=== PATIENT | female | born 1960 | race Caucasian/White ===

== ENCOUNTER → 2017-09-28 13:49 | Outpatient (CLI) | payer MEDICARE, OTHER, SELFPAY ==
[2017-09-28 16:14] LABS: Hemoglobin A1c 6.3 % (4.2-6.3); T3 Total - Triiodothyronine 1.02 ng/mL (0.6-1.81); T4 Free Direct 1.29 ng/dL (0.76-1.46); Thyroid Stim Hormone (TSH) 1.27 uIU/mL (0.358-3.74)
== END ==
PROVIDERS: Visit Provider Family Medicine
DX: E11.9 Type 2 diabetes mellitus without complications (principal); E03.9 Hypothyroidism, unspecified
CPT/HCPCS: 36415; 83036; 84439; 84443; 84480

== ENCOUNTER → 2017-10-07 09:51 | Outpatient (CLI) | payer MEDICARE, OTHER, SELFPAY ==
--- NOTE | 2017-10-07 09:54 | HPBI_ITS ---
MAMMOGRAPHY - BILATERAL SCREENING REASON FOR EXAM: Female, 57 years old. Routine annual screening examination. PERTINENT HISTORY: Non-contributory. TECHNIQUE: Digital bilateral breast aida (3D mammographic acquisition) in the CC and MLO projections. 2-D mediolateral oblique (MLO) and craniocaudad (CC) views of both breasts were obtained. CAD: Full Field Digital Mammography with Computer Added Detection was performed. COMPARISON: None. Baseline examination. FINDINGS: Breast Composition: The breasts are heterogeneously dense, which may obscure small masses. There are no dominant masses or suspicious calcifications. No other significant abnormalities are identified. HPBI/SCREENING MAMM (CAD), BILAT IMPRESSION: Negative screening mammogram. Yearly followup mammogram recommended. (A) ASSESSMENT CATEGORY: BIRADS Category 1: Negative. A letter regarding these results will be sent to the patient by the facility within 30 days. Approximately 10% of breast cancers are not detected by mammography. A normal mammogram should not delay biopsy of a clinically suspicious abnormality. [id number] Electronically Signed: Stan Corral MD at 10:59 EST Tel [phone], Service support ,
== END ==
PROVIDERS: Family Provider Family Medicine; PCP Family Medicine; Visit Provider Nurse Practitioner Women's Health
DX: Z12.31 Encounter for screening mammogram for malignant neoplasm of breast (principal)
CPT/HCPCS: 77063; 77067

== ENCOUNTER → 2017-10-10 14:59 | Outpatient (CLI) | payer MEDICARE, OTHER, SELFPAY ==
[2017-10-10 17:32] LABS: Absolute Lymphocyte Count 1.93 X10^3/ul (0.83-4.51); Absolute Neutrophil Count 3.7 X10^3/uL (2.0-7.7); Basophil# 0.03 X10^3/uL; Basophil% 0.5 % (0-1); Eosinophil# 0.19 X10^3/uL; Hematocrit 39.4 % (37-47); Hemoglobin 12.8 g/dl (12.0-15.0); Lymphocyte # 1.93 X10^3/ul (4.0); Lymphocyte % 30.9 % (19-41); Mean Corp Hgb Conc 32.5 g/gl (32-36); Mean Corpuscular Hgb 28.1 pg (27.0-32.0); Mean Corpuscular Volume 86.6 fL (81-99); Mean Platelet Vol. 9.2 fl (6.2-12.0); Monocyte# 0.37 X10^3/uL; Monocyte% 5.9 % (0-10); Neutrophil # 3.71 X10^3/uL (2.7-7.7); Neutrophil % 59.4 % (47-70); Platelet Count 203 K/mm3 (150-450); RBC Distribution Width CV 12.9 % (11.6-14.6); Red Blood Count 4.55 M/mm3 (4.2-5.4); White Blood Count 6.3 K/mm3 (4.4-11.0)
[2017-10-10 17:39] LABS: POSITIVE COUNT NO; POSITIVE DIFFERENTIAL NO; POSITIVE MORPHOLOGY NO
[2017-10-10 18:19] LABS: AST(SGOT) 26 U/L (15-37); Alanine Aminotransfer ALT/SGPT 47 U/L (13-56); Albumin, Serum 3.6 g/dL (3.2-5.0); Alkaline Phosphatase 83 U/L (45-117); Anion Gap 8 (5-15); BUN 14 mg/dL (7-18); BUN/Creat Ratio 16.5 RATIO (10-20); Calcium,Total 8.8 mg/dL (8.5-10.1); Chloride 102 mmol/L (98-107); Creatinine, Serum 0.85 mg/dL (0.55-1.02); EST Glomerular Filtration Rate 73 mL/min (>60); Est Glom Filt Rate - Afr Amer 88 mL/min (>60); Globulin 3.7 g/dL (2.2-4.2); Glucose 103 mg/dL (74-106); Potassium 4.4 mmol/L (3.5-5.1); Protein, Total 7.3 g/dL (6.4-8.2); Sodium Level 138 mmol/L (136-145)
[2017-10-10 19:58] LABS: Vitamin D,25 Hydroxy 28.5 ng/mL (19.95-100.01)
== END ==
PROVIDERS: Family Provider Family Medicine; PCP Family Medicine; Visit Provider Family Medicine
DX: E11.9 Type 2 diabetes mellitus without complications (principal); E03.9 Hypothyroidism, unspecified; E55.9 Vitamin D deficiency, unspecified; E16.2 Hypoglycemia, unspecified; R53.83 Other fatigue
CPT/HCPCS: 36415; 80053; 82306; 85025

== ENCOUNTER 2017-10-28 06:06 | Day surgery (SDC) | payer MEDICARE, OTHER, SELFPAY ==
[2017-10-28 06:43] VITALS: BP 122/60; PULSE 73; RESP 16; TEMP 36.2; O2SAT 93; BMI 39.9
[2017-10-28 07:06] LABS: Bedside Glucose 120 mg/dL (70-110)
[2017-10-28] MEDS: Cefazolin 2 GM in 0.9% Normal Saline 100 ML IV (07:18)
[2017-10-28] MEDS: Bupivacaine 0.25% 30 ML Vial (07:27)
--- NOTE | 2017-10-28 07:48 | PCM.DC.POD ---
Discharge Diet: Light diet - advance as tolerated Weight Bearing Status: No weight bearing - No weight left foot Keep extremity elevated above heart level: Left Leg - Keep left foot elevated for at least 50 minutes of every hour Call your doctor if your incision/area has: Continuous Slow Oozing, Sudden Increased Bleeding, Foul Smelling Discharge Call your doctor if you observe: Fever of 101 or Higher, Coldness, Increased Pain, Shortness of breath, Chest pain, Increased palpitations (irregular heartbeat), Calf discomfort, Uncontrolled pain Cleanse incision/area with: Do not get Incision Wet, Keep Dressing Clean & Dry Allergies/Adverse Reactions: Allergies niacin Allergy (Verified 08/01/15 12:44) Itching gabapentin [From Neurontin] Adverse Reaction (Verified 08/01/15 12:44) Other HOT, REDNESS FELT WEIRD Medications to take at Discharge Hydroxyzine Pamoate [Vistaril] 100 mg PO QHS 08/30/13 Lorazepam [Ativan] 1 mg PO BID 08/30/13 Medtronic Pain Pump 08/30/13 Omeprazole [Prilosec] 40 mg PO DAILY 08/30/13 Sertraline HCl [Zoloft] 50 mg PO DAILY 08/30/13 Tizanidine HCl [Zanaflex] 4 mg PO DAILY 08/30/13 Trazodone HCl [Desyrel] 100 mg PO QHS 08/30/13 Lactobacillus Combination No.4 [Probiotic] 1 each PO BID 12/06/14 Lisinopril/Hydrochlorothiazide [Zestoretic 20/25 Tablet] 1 tablet PO DAILY 12/06/14 Oxycodone HCl/Acetaminophen [Percocet 5-325] 1 - 2 tablet PO Q12H PRN 12/06/14 Aspirin [Aspirin, Baby] 81 mg PO DAILY 10/21/17 BuPROPion (XL) [Wellbutrin Xl] 150 mg PO DAILY 10/21/17 Cholecalciferol (Vitamin D3) [Vitamin D3] 2,000 units PO BID 10/21/17 Hydrochlorothiazide [Hctz] 25 mg PO DAILY 10/21/17 Levothyroxine [Synthroid] 50 mcg PO DAILY 10/21/17 Meloxicam 7.5 mg PO DAILY 10/21/17 Metformin HCl [Glucophage] 500 mg PO BIDCM 10/21/17 Simvastatin 20 mg PO DAILY PRN 10/21/17 Oxycodone HCl/Acetaminophen [Percocet 5/325] 1 - 2 tab PO Q4H PRN PRN 3 Days #30 tab 10/28/17 The following prescriptions were given: Oxycodone HCl/Acetaminophen [Percocet 5/325] 1 - 2 tab PO Q4H PRN PRN 3 Days #30 tab PRN Reason: Pain Primary Care Physician: Rica Padgett DO [Primary Care Provider] - Please Follow Up With: Rafi Berry DPM When: within 1 week or sooner if needed
--- NOTE | 2017-10-28 07:50 | PCM.OPRPT ---
Report of Operation Date of Procedure: 10/28/17 Pre-Operative Diagnosis: Plantar fasciitis, left foot Post-Operative Diagnosis: Same Surgery/Procedure Performed:: Plantar Fasciotomy, left foot Description of Surgical Findings:: See operative report engineering designer: Reg Carlos Type of Anesthesia:: Local MAC Specimen's removed: None Estimated Blood Loss (mL): 1mL Description of Procedure: Indications: This is a 57 year old female with chronic left plantar heel pain at the level of the origin of the plantar fascia. This has been treated with extensive conservative/nonsurgical management, but she continues to have pain and symptoms. Xrays were negative, and she is not able to get an MRI. She continues to have pain on palpation to the plantar fascia and all the classic symptoms of plantar fasciitis, which was really bothering her and affecting her daily activities. She has elected to undergo plantar fasciotomy of the left foot. This was discussed with her in great detail, reviewed the possible benefits vs risks and potential complications. Typical post op recovery was reviewed with her. The goals and the expectations were reviewed with her in detail. The consent forms were reviewed with her in detail, and she freely signed them. No guarantees were given or implied. All of her questions were answered. Operative Procedure: The patient was brought back into the operating room and was placed on the operating room table in the supine position. She was carefully secured to the operating room table with a safety belt around the waist. A time out was performed and the patient was properly identified and the surgical plan was confirmed. The patient received 2g of IV Cefazolin for antibiotic prophylaxis. A well padded pneumatic tourniquet was applied around the patient's left ankle. The patient received MAC anesthesia per the anesthesiologist. The skin was cleansed with 70% isopropyl alcohol and 20mL of 0.25% Bupivacaine plain was given as a regional nerve block around the left hindfoot. The left foot was scrubbed, prepped, draped in the usual aseptic fashion. The left foot was elevated for 3 minutes and the left ankle pneumatic tourniquet was inflated to 250mmHg. A skin incision was made to the medial hindfoot at the level of the plantar fascia, careful blunt dissection was completed down through the subcutaneous tissue layer. The patient did have some discomfort to the surgical site therefore 10mL of 1% Lidocaine plain was given as a local nerve block around the surgical site. A plane was created superiorly and inferiorly around the plantar fascia. It was noted the plantar fascia was scarred and thickened at this level. The medial 50% of the plantar fascia was released via a plantar fasciotomy. Remaining tissues appeared healthy and viable. After completing the plantar fasciotomy as noted above, the site was flushed out with copious amounts of normal saline solution. The skin was reapproximated using 4-0 Monocryl. The pneumatic tourniquet was deflated (total tourniquet time was 15 minutes), and there was immediate return of warmth and perfusion to the foot and to all toes on the foot with normal temperature gradient and CFT < 2 seconds to all toes. Hemostasis was achieved. A dressing was applied which consisted of Betadine soaked adaptic, 4x4 gauze, Kerlix and dedrick bandage, being sure to apply it not to tight. The patient tolerated the above operative procedure well at the anesthesia well with no complication. The patient was transported to the recovery room with vital signs stable and in good condition. Post operative orders were placed. Post operative instructions were reviewed with her as well as with her who was here with her today. No weightbearing left foot, keep left foot elevated for at least 50 minutes of every hour, keep dressing clean, dry and intact. Prescription for Percocet 5mg/325mg was prescribed: 1-2 tab PO q 4 hours PRN pain for pain control. She is to follow up with me within 1 week or sooner if needed. Grafts/Implants Used: None - Complications None
[2017-10-28 07:55] VITALS: BP 107/54; BP 122/60; PULSE 82; RESP 16; TEMP 36.6; O2SAT 92
[2017-10-28 08:00] VITALS: BP 102/62; BP 122/60; PULSE 80; RESP 16; O2SAT 92
[2017-10-28 08:05] VITALS: BP 104/59; BP 122/60; PULSE 78; RESP 16; O2SAT 92
[2017-10-28 08:10] VITALS: BP 122/60; BP 99/61; PULSE 75; RESP 16; TEMP 36.1; O2SAT 92
[2017-10-28 09:11] VITALS: BP 122/60; BP 132/78; PULSE 70; RESP 18; TEMP 36.6; O2SAT 99
== END 2017-10-28 09:14 | disposition home or self-care (01) ==
LOC: SDC 06:06 → AC 06:08
PROVIDERS: Family Provider Family Medicine; PCP Family Medicine; Visit Provider Podiatrist
PROC: (CPT 28008; principal; 2017-10-28 07:15)
DX: M72.2 Plantar fascial fibromatosis (principal); F41.9 Anxiety disorder, unspecified; Z79.899 Other long term (current) drug therapy; Z86.711 Personal history of pulmonary embolism; K21.9 Gastro-esophageal reflux disease without esophagitis; Z79.82 Long term (current) use of aspirin; Z79.84 Long term (current) use of oral hypoglycemic drugs; I10 Essential (primary) hypertension; Z87.891 Personal history of nicotine dependence; E78.5 Hyperlipidemia, unspecified; E55.9 Vitamin D deficiency, unspecified; E11.9 Type 2 diabetes mellitus without complications; E03.9 Hypothyroidism, unspecified
CPT/HCPCS: 28008; 82962; J3010; J7120

== ENCOUNTER → 2017-11-09 16:33 | Outpatient (CLI) | payer MEDICARE, OTHER, SELFPAY ==
[2017-11-09 17:43] LABS: Amphetamine Urine VISTA NEGATIVE (<1000 ng/mL); Barbiturate Urine VISTA NEGATIVE (< 200 ng/mL); Benzodiazepine Urine VISTA NEGATIVE (< 200 ng/mL); Cocaine Urine VISTA NEGATIVE (< 300 ng/mL); Ecstacy Urine VISTA POSITIVE (< 500 ng/mL); Methadone Urine VISTA NEGATIVE (< 300 ng/mL); PCP Urine VISTA NEGATIVE (< 25 ng/mL); THC Urine VISTA NEGATIVE (< 50 ng/mL); Vista UDS pH Range 5
== END ==
PROVIDERS: Family Provider Family Medicine; PCP Family Medicine; Visit Provider Anesthesiology Pain Medicine
DX: F11.20 Opioid dependence, uncomplicated (principal)
CPT/HCPCS: 80307

== ENCOUNTER 2017-12-29 13:30 | Outpatient (RCR) | payer MEDICARE, OTHER, SELFPAY | END 2018-01-26 23:59 | LOC: DC 13:30 | PROVIDERS: Family Provider Family Medicine; PCP Family Medicine; Visit Provider Family Medicine | DX: E11.9 Type 2 diabetes mellitus without complications (principal); Z71.3 Dietary counseling and surveillance | CPT/HCPCS: G0108 ==

== ENCOUNTER 2018-01-06 10:00 | Outpatient (RCR) | payer MEDICARE, OTHER, SELFPAY ==
--- NOTE | 2017-12-12 14:39 | HP.PTEVAL_ITS ---
Patient's Visit Information FLEX WOOTEN is a 57 year old F referred to Physical Therapy by Rafi Berry with a diagnosis of LEFT PLANTAR FASCIA. Date of Evaluation: 12/12/17 Physical Therapist: Mik Soto PT, - Visit Plan Frequency: 2-3x /Week Duration: 4 Weeks Plan: WORK ON TRANSITION OUT OF CAM BOOT. US,CP,STRETCHING PLANTARFASCIA, STRENGTHENING ANKLE. PATIENT USES CAM BOOT COMMUNITY DISTANCE - Subjective Subjective: This 57 y/o female presents to physical therapy with left plantar fascitis. Patient has had left plantar fascia pain many years. Patient underwent s/p planta fasciotomy October 28 2017. Patient d/c to home with walker NWB left foot 2weeks with CAM BOOT. Then progressed to crutches with TTWB with CAM boot 2weeks . Then WBAT with boot 2weeks ago without crutches. Plan orthotics and diabetic shoe which patient has been recently diagnosed diabetes. Seen DR last week and recommended to start PT. Patient is in boot on in community but uses post op shoe at home. Patient continues to have alot of pain calcaneous plantar and lateral.Patient denies parathesia/tingling. Patient unable to walk or stand with CAM boot . Pain affects ADL'S ,housewok tasks and ulaity of life. Patient states conts to have edema. SOCAIL: . VOCATION : disablity - Pain Left Foot Pain Intensity (Out of 10): 5 Pain Intensity Range: 10 - Objective POSTURE: mild foward posture. FRONTAL PLANE MECHANICS: pes planus ,calcaneal valgus. PALPATION : tender calcaneus ,insertion plantar fascia. EDEMA: small redeness noted inscion region. GAIT: ambulates with with decrease stance time left foot. AROM: dorsiflexion 0 degrees,Plantar flexion 60 degrees,inversion 40 degrees,eversion 0 degrees. MMT: anterior tibials 4/5 ,3+/5 G-Solues, posterior tibials 4-/5,perneous 4-/5. PROPRIOCEPTION: poor. FLEXABLITY: G-S min tight - Goals Goal 1:: Patient to be Independant with HEP Goal Time Frame: 4-6 Weeks Goal 2:: Patient to decrease pain by 50% or greater left calcaneus to improve gait. Goal Time Frame: 4-6 Weeks Goal 3:: Patient to improve gait with heel strike toe off during gait cycle at community distance by 80%. Goal Time Frame: 4-6 Weeks Goal 4:: Patient to improve strength ankle 4/5 to improve gait and standing for ADL'S Goal Time Frame: 4-6 Weeks Goal 5:: Patient be able to perform ADL'S and house work tasks with min limiations Goal Time Frame: 4-6 Weeks Goal 6:: Patient to have minimal palaption of calcaneus Goal Time Frame: 4-6 Weeks - Rehabilitation Potential Physical Therapy Diagnosis: This patient has left plantar fascia pain thus underwent s/p plantar fasciotomy. October 28 2017 in CAM boot with wbat . Patient has deficits with pain ,strength ,impaired gait function ,unable to wean from boot,thus benifit from skilled PT Rehabilitation Potential: Good - Anticipated Interventions Patient/Client Instruction: Educate patient on: Condition, Plan of Care For the Purpose of:: To decrease pain, To increase ROM, To improve muscle performance and motor function, To improve ability to perform ADL's, To increase tolerance to activity/condition/position, To improve performance and independence with ADL's, To improve ability of physical actions for home/ community/work/leisure, To improve gait and locomotor functions, To improve health of tissue, To decrease soft tissue restriction, To increase flexibility/ ROM, To improve ability to perform tasks related to life management Therapeutic Exercise to Include: Strength training, Balance training, Flexibilty training, Gait and locomotor training, Passive ROM, Active ROM For the Purpose of:: To decrease pain, To increase ROM, To improve muscle performance and motor function, To improve ability to perform ADL's, To increase tolerance to activity/condition/position, To improve ability of physical actions for home/community/work/leisure, To improve health of tissue, To decrease soft tissue restriction, To increase flexibility/ROM, To improve ability to perform tasks related to life management Cryotherapy (ice pack, ice massage): Yes Thermo therapy (hot pack): Yes Ultrasound (thermal/non thermal): Yes For the Purpose of:: To decrease pain, To increase ROM, To improve nutrient delivery to tissue, To increase oxygenation perfusion, To improve health of tissue, To decrease soft tissue restriction, To increase flexibility/ROM Thank you for the opportunity to evaluate your patient. For Medicare and Medicare HMO plans, please review the plan of care and approve it. It will need to be FAXED BACK to us at [phone] for Medicare purposes. Please let me know if there are questions or concerns regarding this plan of care. Physician Signature: Date:
--- NOTE | 2018-01-06 10:43 | HP.PTEVAL_ITS ---
Patient's Visit Information FLEX WOOTEN is a 57 year old F referred to Physical Therapy by Rafi Berry with a diagnosis of LEFT PLANTAR FASCIA. Date of Evaluation: 12/12/17 Physical Therapist: Mki Soto PT, - Visit Plan Frequency: 2-3x /Week Duration: 4 Weeks Plan: D/C to HEP - Subjective Subjective: This 57 y/o female presents to physical therapy with left plantar fascitis. Patient has had left plantar fascia pain many years. Patient underwent s/p planta fasciotomy October 28 2017. Patient d/c to home with walker NWB left foot 2weeks with CAM BOOT. Then progressed to crutches with TTWB with CAM boot 2weeks . Then WBAT with boot 2weeks ago without crutches. Plan orthotics and diabetic shoe which patient has been recently diagnosed diabetes. Seen DR last week and recommended to start PT. Patient is in boot on in community but uses post op shoe at home. Patient continues to have alot of pain calcaneous plantar and lateral.Patient denies parathesia/tingling. Patient unable to walk or stand with CAM boot . Pain affects ADL'S ,housewok tasks and ulaity of life. Patient states conts to have edema. SOCAIL: . VOCATION : disablity - Pain Left Foot Pain Intensity (Out of 10): 0 Pain Intensity Range: 10 - Objective POSTURE: mild foward posture. FRONTAL PLANE MECHANICS: pes planus ,calcaneal valgus. PALPATION : tender calcaneus ,insertion plantar fascia. EDEMA: small redeness noted inscion region. GAIT: ambulates with with decrease stance time left foot. AROM: dorsiflexion 0 degrees,Plantar flexion 60 degrees,inversion 40 degrees,eversion 0 degrees. MMT: anterior tibials 4/5 ,3+/5 G-Solues, posterior tibials 4-/5,perneous 4-/5. PROPRIOCEPTION: poor. FLEXABLITY: G-S min tight - Goals Goal 1:: Patient to be Independant with HEP Goal Time Frame: 4-6 Weeks Goal 2:: Patient to decrease pain by 50% or greater left calcaneus to improve gait. Goal Time Frame: 4-6 Weeks Goal 3:: Patient to improve gait with heel strike toe off during gait cycle at community distance by 80%. Goal Time Frame: 4-6 Weeks Goal 4:: Patient to improve strength ankle 4/5 to improve gait and standing for ADL'S Goal Time Frame: 4-6 Weeks Goal 5:: Patient be able to perform ADL'S and house work tasks with min limiations Goal Time Frame: 4-6 Weeks Goal 6:: Patient to have minimal palaption of calcaneus Goal Time Frame: 4-6 Weeks - Rehabilitation Potential Physical Therapy Diagnosis: This patient has left plantar fascia pain thus underwent s/p plantar fasciotomy. October 28 2017 in CAM boot with wbat . Patient has deficits with pain ,strength ,impaired gait function ,unable to wean from boot,thus benifit from skilled PT Rehabilitation Potential: Good - Anticipated Interventions Patient/Client Instruction: Educate patient on: Condition, Plan of Care For the Purpose of:: To decrease pain, To increase ROM, To improve muscle performance and motor function, To improve ability to perform ADL's, To increase tolerance to activity/condition/position, To improve performance and independence with ADL's, To improve ability of physical actions for home/ community/work/leisure, To improve gait and locomotor functions, To improve health of tissue, To decrease soft tissue restriction, To increase flexibility/ ROM, To improve ability to perform tasks related to life management Therapeutic Exercise to Include: Strength training, Balance training, Flexibilty training, Gait and locomotor training, Passive ROM, Active ROM For the Purpose of:: To decrease pain, To increase ROM, To improve muscle performance and motor function, To improve ability to perform ADL's, To increase tolerance to activity/condition/position, To improve ability of physical actions for home/community/work/leisure, To improve health of tissue, To decrease soft tissue restriction, To increase flexibility/ROM, To improve ability to perform tasks related to life management Cryotherapy (ice pack, ice massage): Yes Thermo therapy (hot pack): Yes Ultrasound (thermal/non thermal): Yes For the Purpose of:: To decrease pain, To increase ROM, To improve nutrient delivery to tissue, To increase oxygenation perfusion, To improve health of tissue, To decrease soft tissue restriction, To increase flexibility/ROM Thank you for the opportunity to evaluate your patient. For Medicare and Medicare HMO plans, please review the plan of care and approve it. It will need to be FAXED BACK to us at [phone] for Medicare purposes. Please let me know if there are questions or concerns regarding this plan of care. Physician Signature: Date:
--- NOTE | 2018-01-06 16:58 | HP.PTDCSUM_ITS ---
HP - PT D/C Summary It has been my pleasure to treat FLEX WOOTEN under orders from Rafi Berry , for the diagnosis of LEFT PLANTAR FASCIA for a total of 6 visit(s). Discharge Date: 01/06/18 Please see the following information for a summary of their discharge status. - Subjective Subjective: Seen MD .. Happy with progress .Okay to be d/c. No pain when wearing shoes. Plan to get diabetic shoes and orthotics. Patient able to walk and stand to improve ADL'S - Pain Left Foot Pain Intensity (Out of 10): 0 - Overall Improvement % Improvement: 80 - Objective Objective/Function: POSTURE: pes planus. GAIT: normal oscar reciprocal pattern. AROM: dorsiflexion 5 degrees, plantar flexion 65 degrees,inversion 35 degrees,5 degrees EV. MMT: ankle 4/5 ,except G-S 4-/5 - Goals Goal 1:: Patient to be Independant with HEP Goal Progress: Goal Met Goal 2:: Patient to decrease pain by 50% or greater left calcaneus to improve gait. Goal Progress: Goal Met Goal 3:: Patient to improve gait with heel strike toe off during gait cycle at community distance by 80%. Goal Progress: Goal Met Goal 4:: Patient to improve strength ankle 4/5 to improve gait and standing for ADL'S Goal Progress: Goal Met Goal 5:: Patient be able to perform ADL'S and house work tasks with min limiations Goal Progress: Goal Met Goal 6:: Patient to have minimal palaption of calcaneus Goal Progress: Goal Met - Plan Plan: D/C to HEP - D/C Information Discharge Comments: D/C TO HEP If there are questions or concerns regarding this patient's physical therapy, please feel free to call me at [phone]. Thank you for the referral of this patient. Sincerely, Mik Soto, PT,
== END 2018-01-06 19:00 | disposition home or self-care (01) ==
LOC: PT 10:00
PROVIDERS: Family Provider Family Medicine; PCP Family Medicine; Visit Provider Podiatrist
DX: M72.2 Plantar fascial fibromatosis (principal)
CPT/HCPCS: 97035; 97110; 97140; 97162; 97530; G8978; G8980

== ENCOUNTER → 2018-01-17 12:40 | Outpatient (CLI) | payer MEDICARE, OTHER, SELFPAY ==
--- NOTE | 2018-01-17 12:44 | RAD_ITS ---
STUDY: X-RAY - LEFT SHOULDER REASON FOR EXAM: Female, 57 years old. Pain. TECHNIQUE: 4 view(s) of the shoulder. COMPARISON: None. FINDINGS: Normal glenohumeral articulation. There is hypertrophic osteoarthrosis of the acromioclavicular joint with inferior osseous spur formation. Normal acromion. Normal humeral head and visualized proximal humerus. The soft tissue structures are unremarkable. Normal visualized pulmonary apex. RAD/Shoulder min 2 Views IMPRESSION: Degenerative changes of the acromioclavicular joint. Electronically Signed: Stan Corral MD at 12:58 EDT Tel [phone], Service support ,
== END ==
PROVIDERS: Family Provider Family Medicine; PCP Family Medicine; Visit Provider Physician Assistant Surgical
DX: S46.912A Strain of unspecified muscle, fascia and tendon at shoulder and upper arm level, left arm, initial encounter (principal); X58.XXXA Exposure to other specified factors, initial encounter; Y93.9 Activity, unspecified; Y92.9 Unspecified place or not applicable; Y99.9 Unspecified external cause status
CPT/HCPCS: 73030

== ENCOUNTER 2018-02-06 13:03 | Outpatient (RCR) | payer MEDICARE, OTHER, SELFPAY ==
--- NOTE | 2018-02-06 13:03 | DT_ITS ---
This patient was seen during an EMR downtime January 30, 2018 - February 06, 2018. This patient may have a combination of paper and electronic documentation or all paper documentation. All documentation is viewable within the e-chart portion of [employer] for each patient visit.
== END 2018-02-25 23:59 ==
LOC: DC 13:03
PROVIDERS: Family Provider Family Medicine; PCP Family Medicine; Visit Provider Family Medicine
DX: E11.9 Type 2 diabetes mellitus without complications (principal); Z71.3 Dietary counseling and surveillance
CPT/HCPCS: 97802; G0109

== ENCOUNTER 2018-03-21 14:13 | Outpatient (RCR) | payer MEDICARE, OTHER, SELFPAY | END 2018-03-21 23:59 | LOC: DC 14:13 | PROVIDERS: Family Provider Family Medicine; PCP Family Medicine; Visit Provider Family Medicine | DX: E11.9 Type 2 diabetes mellitus without complications (principal); Z71.3 Dietary counseling and surveillance | CPT/HCPCS: 97803 ==

== ENCOUNTER 2018-03-30 16:59 | Outpatient (RCR) | payer MEDICARE, OTHER, SELFPAY | END 2018-04-28 23:59 | LOC: DC 16:59 | PROVIDERS: Family Provider Family Medicine; PCP Family Medicine; Visit Provider Family Medicine | DX: E11.9 Type 2 diabetes mellitus without complications (principal); Z71.3 Dietary counseling and surveillance ==

== ENCOUNTER 2018-04-21 19:24 | Emergency (ER) | payer MEDICARE, OTHER, SELFPAY ==
[2018-04-21 19:25] VITALS: BP 139/93; PULSE 95; RESP 24; TEMP 36.8; O2SAT 94; BMI 39.6
--- NOTE | 2018-04-21 20:19 | ED.DCSUM_ITS ---
- ER Visit Summary Date of Service: 04/21/18 Chief Complaint: Shortness of breath History of Present Illness: The patient is a [address] Padgett. She reports she has shortness of breath began yesterday. She reports that she has been wheezing and has never done this previously. She does not smoke. Reports her shortness of breath is severe at worst and mild currently. Is worsened by walking around. Son change with lying flat. She does report she has a little cough. This is nonproductive. No fever, chills, chest pain. Physical Examination: Vitals: Stable. Afebrile. General: Well-nourished and well-developed. Head: Normocephalic atraumatic. Neck: Supple, no lymphadenopathy. No JVD. Nontender. Cardiovascular: Regular rate and rhythm. No murmurs. Respiratory: No respiratory distress. Mild end expiratory wheezing with good air movement. Abdominal: Soft, nontender, nondistended, normal bowel sounds. No guarding, rebound, or peritoneal signs. Back: Nontender. Extremities: Nontender, no edema. Skin: Normal color, no rash. Neurologic: Alert and oriented ?3. Cranial nerves II through XII are intact. Normal strength and sensation. Psych: Normal affect. Test Results: EKG is sinus at [address] changes. Is unchanged from July 2015. Troponins negative. PT REIMBURSEMENT LIAISON is normal. Chem-7 is more for glucose 117. CBC is normal. Chest x-ray is normal. CTA of the chest is normal. Emergency Department Course and Treatment: Patient was treated albuterol at area aerosols with no relief. She is given dose of Solu-Medrol IV. Treatment Plan: Patient is resting comfortably. I do not feel that she needs to be admitted to the hospital. She will be discharged with an albuterol MDI and a 5 day burst of prednisone. Instructed to follow with her primary care physician 1 to days if not improving. Return to the emergency department for any worsening symptoms. Disposition: To home in improved and stable condition. Impression: 1. Bronchospasm, uncertain cause. This note was generated with [employer] software. It may contain incorrect words, spelling, and punctuation that were not noted in review of the chart prior to signing ED Disposition - Plan for ED Patient: Disposition: Home or Assisted Living Chief Complaint: Shortness of Breath Instructions: ED Wheezing Prescriptions: Albuterol Inhaler [Ventolin Hfa] 1 - 2 puff INHALATION Q4H PRN PRN #1 inhaler PRN Reason: Wheezing Prednisone [Deltasone] 60 mg PO DAILY #15 tablet Referrals: Rica Padgett DO [Primary Care Provider] - 3-5 Days if not improving
[2018-04-21 20:29] VITALS: PULSE 86; RESP 18
[2018-04-21] MEDS: Ipratropium/Albuterol Sulfate 3 ML AMPUL.NEB INHALATION (20:29)
[2018-04-21 20:32] VITALS: RESP 18; O2SAT 96
[2018-04-21 20:38] VITALS: BP 144/84; PULSE 81; RESP 16; O2SAT 92; O2SAT 95
[2018-04-21] MEDS: MethylPREDNISolone 125 MG/2 ML Vial IV (20:49)
[2018-04-21 20:53] LABS: Absolute Lymphocyte Count 2.36 X10^3/ul (0.83-4.51); Absolute Neutrophil Count 4.7 X10^3/uL (2.0-7.7); Basophil# 0.05 X10^3/uL; Basophil% 0.6 % (0-1); Eosinophil# 0.26 X10^3/uL; Eosinophils% 3.3 % (0-5); Hematocrit 39.8 % (37-47); Hemoglobin 12.7 g/dl (12.0-15.0); Lymphocyte # 2.36 X10^3/ul (4.0); Mean Corp Hgb Conc 31.9 g/gl (32-36); Mean Corpuscular Hgb 27.4 pg (27.0-32.0); Mean Corpuscular Volume 85.8 fL (81-99); Monocyte# 0.48 X10^3/uL; Monocyte% 6.1 % (0-10); Neutrophil % 59.9 % (47-70); Platelet Count 217 K/mm3 (150-450); RBC Distribution Width CV 13.1 % (11.6-14.6); RBC Distribution Width SD 40.9 fl (35.1-43.9); Red Blood Count 4.64 M/mm3 (4.2-5.4); White Blood Count 7.9 K/mm3 (4.4-11.0)
[2018-04-21 21:02] LABS: Anion Gap 7 (5-15); BUN 14 mg/dL (7-18); BUN/Creat Ratio 16.9 RATIO (10-20); Calcium,Total 8.6 mg/dL (8.5-10.1); Chloride 103 mmol/L (98-107); Creatinine, Serum 0.83 mg/dL (0.55-1.02); EST Glomerular Filtration Rate 75 mL/min (>60); Est Glom Filt Rate - Afr Amer 90 mL/min (>60); Estimated Creatinine Clearance 63.02 ml/min; Glucose 117 mg/dL (74-106); Sodium Level 140 mmol/L (136-145)
[2018-04-21 21:12] LABS: POSITIVE COUNT NO; POSITIVE DIFFERENTIAL NO; POSITIVE MORPHOLOGY NO
[2018-04-21 22:06] LABS: BNP,B-Type NATRIURETIC PEPTIDE 22.4 pg/mL (0-100)
[2018-04-21 23:22] VITALS: PULSE 76; RESP 23; O2SAT 97
== END 2018-04-21 23:24 | disposition home or self-care (01) ==
LOC: ED 20:43
PROVIDERS: Emergency Provider Emergency Medicine; Family Provider Family Medicine; PCP Family Medicine
DX: J98.01 Acute bronchospasm (principal); R51 Headache; E11.9 Type 2 diabetes mellitus without complications; I10 Essential (primary) hypertension; Z79.84 Long term (current) use of oral hypoglycemic drugs; Z79.82 Long term (current) use of aspirin; Z79.899 Other long term (current) drug therapy; Z86.718 Personal history of other venous thrombosis and embolism
CPT/HCPCS: 71045; 71275; 80048; 83880; 84484; 85025; 93005; 94640; 94760; 96361; 96374; 99284; J7030; J7040; Q9967; A4216

== ENCOUNTER 2018-05-04 11:53 | Outpatient (RCR) | payer MEDICARE, OTHER, SELFPAY | END 2018-05-28 23:59 | LOC: DC 11:53 | PROVIDERS: Family Provider Family Medicine; PCP Family Medicine; Visit Provider Family Medicine | DX: E11.9 Type 2 diabetes mellitus without complications (principal); Z71.3 Dietary counseling and surveillance ==

== ENCOUNTER → 2018-06-09 17:44 | Outpatient (CLI) | payer MEDICARE, OTHER, SELFPAY ==
--- NOTE | 2018-06-09 17:52 | RAD_ITS ---
STUDY: X-RAY - THORACIC SPINE REASON FOR EXAM: Female, 58 years old. CHRONIC PAIN TECHNIQUE: 3 view(s) of the thoracic spine were obtained. COMPARISON: None. FINDINGS: Normal kyphosis of the thoracic spine. There is no substantial scoliosis. There is multilevel endplate spondylosis of the thoracic vertebrae. There is multilevel disc space narrowing of the thoracic spine. The soft tissue structures are unremarkable. RAD/Thoracic Spine 3 Views IMPRESSION: There are degenerative changes as noted above. Electronically Signed: Celestine Martinez MD at 17:48 EDT , Service support ,
== END ==
PROVIDERS: Family Provider Family Medicine; PCP Family Medicine; Visit Provider Anesthesiology Pain Medicine
DX: M54.9 Dorsalgia, unspecified (principal)
CPT/HCPCS: 72072

== ENCOUNTER → 2018-09-21 15:19 | Outpatient (CLI) | payer MEDICARE, OTHER, SELFPAY ==
[2018-09-21 18:01] LABS: Absolute Lymphocyte Count 2.52 X10^3/ul (0.83-4.51); Absolute Neutrophil Count 4.1 X10^3/uL (2.0-7.7); Basophil# 0.03 X10^3/uL; Basophil% 0.4 % (0-1); Eosinophil# 0.19 X10^3/uL; Eosinophils% 2.6 % (0-5); Hematocrit 41.1 % (37-47); Hemoglobin 13.1 g/dl (12.0-15.0); Lymphocyte # 2.52 X10^3/ul (4.0); Lymphocyte % 34.1 % (19-41); Mean Corp Hgb Conc 31.9 g/gl (32-36); Mean Corpuscular Hgb 27.6 pg (27.0-32.0); Mean Corpuscular Volume 86.7 fL (81-99); Mean Platelet Vol. 9.1 fl (6.2-12.0); Monocyte# 0.58 X10^3/uL; Monocyte% 7.9 % (0-10); Neutrophil # 4.05 X10^3/uL (2.7-7.7); Neutrophil % 54.9 % (47-70); POSITIVE COUNT NO; POSITIVE DIFFERENTIAL NO; POSITIVE MORPHOLOGY NO; Platelet Count 228 K/mm3 (150-450); RBC Distribution Width CV 13.6 % (11.6-14.6); RBC Distribution Width SD 43.1 fl (35.1-43.9); Red Blood Count 4.74 M/mm3 (4.2-5.4); White Blood Count 7.4 K/mm3 (4.4-11.0)
[2018-09-21 18:13] LABS: ALB/GLOB Ratio 0.9 RATIO (0.9-2.4); AST(SGOT) 29 U/L (15-37); Alanine Aminotransfer ALT/SGPT 54 U/L (13-56); Albumin, Serum 3.7 g/dL (3.2-5.0); Alkaline Phosphatase 83 U/L (45-117); Anion Gap 7 (5-15); BUN 12 mg/dL (7-18); BUN/Creat Ratio 13.2 RATIO (10-20); Calcium,Total 8.7 mg/dL (8.5-10.1); Chloride 102 mmol/L (98-107); Creatinine, Serum 0.91 mg/dL (0.55-1.02); EST Glomerular Filtration Rate 67 mL/min (>60); Est Glom Filt Rate - Afr Amer 81 mL/min (>60); Globulin 3.9 g/dL (2.2-4.2); Glucose 114 mg/dL (74-106); Potassium 4.2 mmol/L (3.5-5.1); Protein, Total 7.6 g/dL (6.4-8.2); Sodium Level 138 mmol/L (136-145); Thyroid Stim Hormone (TSH) 0.94 uIU/mL (0.358-3.74)
== END ==
PROVIDERS: Family Provider Family Medicine; PCP Family Medicine; Visit Provider Family Medicine
DX: E11.9 Type 2 diabetes mellitus without complications (principal); E03.9 Hypothyroidism, unspecified; R60.9 Edema, unspecified; I10 Essential (primary) hypertension
CPT/HCPCS: 36415; 80053; 84443; 85025

== ENCOUNTER → 2018-10-30 07:53 | Outpatient (CLI) | payer MEDICARE, OTHER, SELFPAY ==
--- NOTE | 2018-10-30 07:56 | BI_ITS ---
MAMMOGRAPHY - BILATERAL SCREENING REASON FOR EXAM: Female, 58 years old. Routine annual screening examination. PERTINENT HISTORY: Sister with breast cancer. TECHNIQUE: Digital bilateral breast angeles (3D mammographic acquisition) in the CC and MLO projections. 2-D mediolateral oblique (MLO) and craniocaudad (CC) views of both breasts were obtained. CAD: Full Field Digital Mammography with Computer Added Detection was performed. COMPARISON: Comparison is made with prior study dated October 07, 2017. FINDINGS: Breast Composition: The breasts are heterogeneously dense, which may obscure small masses. Faint cluster microcalcification is seen in the deep mid medial aspect of the right breast. These have increased in number as compared to prior study. A biopsy is recommended for further evaluation. No other significant abnormalities are identified. BI/SCREEN MAMM (CAD) W/ANGELES BILAT IMPRESSION: Slight increase in number of the microcalcifications in the deep central medial portion of the right breast as described. A biopsy is recommended for further evaluation. ASSESSMENT CATEGORY: BIRADS Category 4: Suspicious - Biopsy Should Be Considered. A letter regarding these results will be sent to the patient by the facility within 30 days. Approximately 10% of breast cancers are not detected by mammography. A normal mammogram should not delay biopsy of a clinically suspicious abnormality. [id number] Electronically Signed: Stan Corral, at 9:50 EST , Service support ,
== END ==
PROVIDERS: Family Provider Family Medicine; PCP Family Medicine; Referring Provider Nurse Practitioner Women's Health; Visit Provider Nurse Practitioner Women's Health
DX: Z12.31 Encounter for screening mammogram for malignant neoplasm of breast (principal); Z80.3 Family history of malignant neoplasm of breast
CPT/HCPCS: 77063; 77067

== ENCOUNTER → 2018-11-07 07:31 | Outpatient (CLI) | payer MEDICARE, OTHER, SELFPAY ==
[2018-11-01 13:11] VITALS: BMI 39.6
--- NOTE | 2018-11-07 08:15 | BRBX_PTH ---
PATIENT: FLEX WOOTEN LOC: [facility] U#:[id number] AGE/SX: 65/F ROOM: RE11/07/[address]: Dr. Hanna Urbano MD : 1960 BED: DIS: SPEC #: [id number] RECD: 11/07/18 09:54 STATUS: SARAH RECesar #: [id number] NEENA: 11/07/18 08:[address]: Hanna Urbano DEPT: SURGICAL PATHOLOGY RECD BY: Eagle Fisher ENTERED: 11/07/18 11:37 SP TYPE: BREAST BX OTHR DR: Dr. Rica Padgett DO Tissues: Right breast, NOS Procedures: Surgery Specimen Level IV HEADER OPERATION: Right breast stereotactic needle core biopsy PRE-OP DIAGNOSIS: Microcalcifications medial / posterior breast TISSUE SUBMITTED: Right breast ISCHEMIC TIME: 2 minutes FIXATION TIME: 11 hours MICROSCOPIC DIAGNOSIS Right breast, stereotactic needle core biopsy: Hyalinized fibroadenoma with calcific change. AM:nakita 11/08/18 COMMENT Case has been reviewed in consultation with Dr. Pompa who concurs with the above diagnosis. IDC:CARLOS MICROSCOPIC DESCRIPTION Slides are reviewed. GROSS DESCRIPTION Received is one container labeled with the patient's name and not further designated. The specimen consists of multiple elongated fragments of hoang-yellow fibroadipose tissue that in aggregate measure 5 x 3 x 0.3 cm. The entire specimen is submitted in two cassettes. / SJ:nakita 11/07/18 TC:1 CPT: 16502
--- NOTE | 2018-11-07 08:53 | OP.PCM_ITS ---
Report of Operation Date of Procedure: 11/07/18 Pre-Operative Diagnosis: Right medial breast microcalcifications Post-Operative Diagnosis: Same Surgery/Procedure Performed:: Right breast stereotactic biopsy Type of Anesthesia:: Local Specimen's removed: Right medial breast microcalcifications Estimated Blood Loss (mL): minimal Description of Procedure: Procedure: Right stereotactic core biopsy Indications: 58 year-old female with microcalcifications in the medial/deep of the right breast. Risk benefits were discussed the patient and she elected to proceed with stereotactic core biopsy with clip placement Description of procedure: Patient was brought into the mammography suite and laid prone on the stereotactic table. A timeout was completed verifying correct patient, procedure, site, specially, prior to beginning procedure. The right breast was prepped and draped in usual sterile fashion and using local anesthesia was obtained with 1% lidocaine with epi. Patient's right breast was positioned and placed into compression. Initial film showed calcifications are in the center of the compression paddle. 15? views were then taken. The calcifications were localized. The left breast was prepped draped in usual sterile fashion. An 8-gauge mammotome was set up according to the digital coordinates. The tract of the mammotome was anesthetized with local anesthesia and an incision was made with the 11 blade scalpel at the entry site. The mammotome was advanced to the prefire state. Pre-prior films were checked and verified. The mammotome was fired. Post fire films were also checked and verified. Biopsies were taken from 8 o'clock to 1 o'clock position. The specimen was x-rayed and all the calcifications were within the specimen. Mammo tome clip was placed at the 12 o'clock position. The mammotome was removed from the breast. An additional film was taken which showed all calcifications were removed and a clip was in place. Pressure was held for hemostasis. Once hemostasis was assured the wound was dressed with Steri-Strips and OpSite. Patient also had a 2 view mammography done to verify clip placement in the CC as well as MLO views. The patient tolerated the procedure well and was discharged from the mammography suite good condition. - Complications none
== END ==
PROVIDERS: Family Provider Family Medicine; PCP Family Medicine; Referring Provider Surgery; Visit Provider Surgery
DX: R92.0 Mammographic microcalcification found on diagnostic imaging of breast (principal); E11.9 Type 2 diabetes mellitus without complications; I10 Essential (primary) hypertension; E07.9 Disorder of thyroid, unspecified; K59.00 Constipation, unspecified; K62.5 Hemorrhage of anus and rectum; Z79.84 Long term (current) use of oral hypoglycemic drugs; Z79.82 Long term (current) use of aspirin; Z79.899 Other long term (current) drug therapy; Z87.891 Personal history of nicotine dependence
CPT/HCPCS: 19081; 88305; J7050; A4648

== ENCOUNTER → 2018-12-12 16:49 | Outpatient (CLI) | payer MEDICARE, OTHER, SELFPAY ==
[2018-11-01 13:11] VITALS: BMI 39.6
--- NOTE | 2018-12-12 16:50 | CT_ITS ---
STUDY: CT ABDOMEN AND PELVIS WITH CONTRAST REASON FOR EXAM: Female, 58 years old. Left lower quadrant pain RADIATION DOSAGE (If Supplied By Facility): CTDIvol = ( 15.36 ) mGy, DLP = ( 1253.89 ) mGycm TECHNIQUE: Transaxial images were obtained from the dome of the diaphragm to the symphysis pubis without oral contrast. 100 IV/Oral Isovue 300 was administered. Sagittal and coronal images were reconstructed. Individualized dose optimization techniques were used for this CT. COMPARISON: December 13, 2016 FINDINGS: The visualized lung bases are unremarkable. The visualized portions of the heart are within normal limits. Liver is enlarged and fatty infiltrated. There is a small homogeneously enhancing nodule in the left lobe consistent with hemangioma. Bile ducts are not dilated. Contracted thick-walled gallbladder without calcified stones possibly physiologic. If concern for gallbladder disease ultrasound recommended.. Normal spleen. Normal pancreas. Normal bilateral adrenal glands. No evidence for renal obstruction or ureteral calculus. There is a tiny simple cyst in left kidney. Normal visualized stomach. Normal small intestine. There is diverticular disease within the colon but no evidence for acute diverticulitis. Appendix has been removed surgically. Minor atherosclerotic changes of the aorta. Normal inferior vena cava. Normal retroperitoneum. Bladder is incompletely distended. Uterus not visualized status post hysterectomy. Normal abdominal wall. Degenerative changes of the lumbar spine. There are also multilevel postsurgical changes status post bilateral laminectomy and posterior fusion. There is a catheter seen within the epidural space CT/Abdomen/Pelvis WITH Contrast IMPRESSION: Enlarged fatty infiltrated liver. Hemangioma within the left lobe. Minor diverticular changes in the colon without evidence for acute diverticulitis Status post appendectomy and hysterectomy Electronically Signed: Rafi Bajwa MD at 17:51 EDT , Service support ,
[2018-12-12 17:00] LABS: CREATININE FINGERSTICK 1.2 mg/dL (0.55-1.02)
== END ==
PROVIDERS: Family Provider Family Medicine; PCP Family Medicine; Referring Provider Physician Assistant; Visit Provider Physician Assistant
DX: R10.32 Left lower quadrant pain (principal)
CPT/HCPCS: 74177; Q9967

== ENCOUNTER → 2019-03-12 09:35 | Outpatient (CLI) | payer MEDICARE, OTHER, SELFPAY ==
[2018-11-01 13:11] VITALS: BMI 39.6
--- NOTE | 2019-03-12 09:38 | STEWCON_ITS ---
Reason For Study: CHEST PAIN Stress Results Protocol: Dobutatmine Stress Echo Maximum Predicted HR: 160 bpm Target HR: 136 bpm % Maximum Predicted HR: 88 % DurationHeart Rate Stage (mm:ss) (bpm) BP Dose Comment BASELINE 68 130/68 DILUTED DEFINITY 5 CC USED DSE- 10 MCG 3:29 68 139/7810.00NO SX DSE- 20 MCG 3:00 125 127/05168.00NO SX DSE- 30 MCG 2:41 141 142/91353.00NO SX RECOVERY 77 131/52 Stress Duration: 9:10 mm:ss Maximum Stress HR: 141 bpm Baseline Echocardiogram Findings The estimated ejection fraction is 55 %. Stress Echo Wall motion Data Resting WM Intermediate WM Stress WM Resting Wall Motion Wall Motion Stress No regional wall motion No regional wall motion abnormalities noted. abnormalities noted. Ejection Fraction 55 %. Ejection Fraction 65 %. Interpretation Summary Dobutamine stress echocardiogram. 58-year-old lady with a history of hypertension hyperlipidemia and chest pain. Stress protocol: Resting EKG demonstrates normal sinus rhythm with a rate of 75 bpm normal intervals are noted resting blood pressure is 130/68 mmHg. Debridement was infused starting at 10 mcg/kg/min increasing in 3-minute durations to a peak of 30 mcg/kg/min. The peak heart rate attained was noted to be 141 bpm which was 88% maximum predicted heart rate repair the maximum workload was 1 metabolic equivalent. The patient maintained sinus rhythm throughout the recording. At rest there were no ST or T wave changes noted suggest ischemia at peak infusion nonspecific ST-T wave changes were noted. The resting blood pressure 130/68 with a peak blood pressure 142/120 mmHg. Stress echocardiogram. Stress echo Images were obtained with and without definitive. The resting echocardiographic ejection fraction was noted to be 55% with a peak ejection fraction of 65%. No wall motion abnormalities were noted to suggest ischemia. Conclusion: Dobutamine stress echocardiogram with no EKG or echocardiographic evidence of ischemia. Ordering Physician: Rica Padgett Referring Physician: Rica Padgett Performed By: Marilyn Layton, HAO, RVT
== END ==
PROVIDERS: Family Provider Family Medicine; PCP Family Medicine; Referring Provider Family Medicine; Visit Provider Family Medicine
DX: R07.9 Chest pain, unspecified (principal); R06.00 Dyspnea, unspecified
CPT/HCPCS: 93017; 93350; J7040; Q9957; A4216; C8928

== ENCOUNTER → 2019-05-16 14:26 | Outpatient (CLI) | payer MEDICARE, OTHER, SELFPAY ==
[2019-05-15 09:40] VITALS: BMI 39.6
--- NOTE | 2019-05-16 14:29 | CT_ITS ---
STUDY: CT ABDOMEN AND PELVIS WITH CONTRAST REASON FOR EXAM: Female, 59 years old. Left lower quadrant pain. History of appendectomy. RADIATION DOSAGE (If Supplied By Facility): CTDIvol = ( 18.67 ) mGy, DLP = ( 1310.27 ) mGycm TECHNIQUE: Transaxial images were obtained from the dome of the diaphragm to the symphysis pubis with oral contrast. 100mL ml of Isovue 300 contrast was administered. Sagittal and coronal images were reconstructed. Individualized dose optimization techniques were used for this CT. COMPARISON: 12/12/2018. FINDINGS: The visualized lung bases are clear. The visualized portions of the heart and pericardium are within normal limits. There are no calcified gallstones present. The liver is enlarged, but stable. Again noted is diffuse fatty infiltration. The previously seen hemangioma is not clearly visualized on this exam. The spleen is normal in size. The pancreas is within normal limits. The adrenal glands are within normal limits. There are no renal or ureteral stones. There is no hydronephrosis. There is a stable cyst in the left kidney. There are no right renal lesions. Normal visualized stomach. There is no bowel obstruction or inflammation. The patient is status post appendectomy. The aorta is normal in caliber. There is no abdominal or pelvic free air, free fluid, fluid collection or lymphadenopathy. There are no destructive osseous lesions. There are stable postsurgical changes in the lumbar spine. CT/Abdomen/Pelvis WITH Contrast IMPRESSION: No acute abdominal or pelvic pathology. Stable enlarged, fatty liver. Electronically Signed: Jered Dooley, at 19:19 EDT Tel , Service support ,
[2019-05-16 14:41] LABS: CREATININE FINGERSTICK 0.9 mg/dL (0.55-1.02); EGFR FINGERSTICK > 60.0000 mL/min (>60)
== END ==
PROVIDERS: Family Provider Family Medicine; PCP Family Medicine; Referring Provider Surgery; Visit Provider Surgery
DX: Z01.812 Encounter for preprocedural laboratory examination (principal); R10.32 Left lower quadrant pain
CPT/HCPCS: 74177; Q9967

== ENCOUNTER → 2019-05-21 09:43 | Outpatient (CLI) | payer MEDICARE, OTHER, SELFPAY ==
[2019-05-15 09:40] VITALS: BMI 39.6
[2019-05-21 11:05] LABS: Absolute Lymphocyte Count 2.07 X10^3/uL (0.83-4.51); Basophil# 0.04 X10^3/uL; Basophil% 0.7 % (0-1); Eosinophil# 0.25 X10^3/uL; Eosinophils% 4.3 % (0-5); Hematocrit 39.5 % (37-47); Hemoglobin 12.3 g/dL (12.0-15.0); Lymphocyte # 2.07 X10^3/ul (4.0); Lymphocyte % 35.3 % (19-41); Mean Corp Hgb Conc 31.1 g/dL (32-36); Mean Corpuscular Hgb 26.9 pg (27.0-32.0); Mean Corpuscular Volume 86.2 fL (81-99); Mean Platelet Vol. 9.3 fl (6.2-12.0); Monocyte# 0.52 X10^3/uL; Monocyte% 8.9 % (0-10); NRBC Flagged by Analyzer 0 % (0-5); Neutrophil # 2.96 X10^3/uL (2.7-7.7); Neutrophil % 50.5 % (47-70); Platelet Count 231 K/mm3 (150-450); RBC Distribution Width CV 13.5 % (11.6-14.6); RBC Distribution Width SD 41.7 fl (35.1-43.9); Red Blood Count 4.58 M/mm3 (4.2-5.4); White Blood Count 5.9 K/mm3 (4.4-11.0)
[2019-05-21 11:31] LABS: Anion Gap 5 (5-15); BUN 17 mg/dL (7-18); BUN/Creat Ratio 17.6 RATIO (10-20); Chloride 102 mmol/L (98-107); Creatinine, Serum 0.97 mg/dL (0.55-1.02); EST Glomerular Filtration Rate 62 mL/min (>60); Est Glom Filt Rate - Afr Amer 75 mL/min (>60); Glucose 133 mg/dL (74-106); Sodium Level 139 mmol/L (136-145)
== END ==
PROVIDERS: Family Provider Family Medicine; PCP Family Medicine; Referring Provider Surgery; Visit Provider Surgery
DX: R10.32 Left lower quadrant pain (principal); R19.7 Diarrhea, unspecified
CPT/HCPCS: 36415; 80048; 83630; 85025; 87177; 87209; 87493

== ENCOUNTER 2019-05-22 10:05 | Day surgery (SDC) | payer MEDICARE, OTHER, SELFPAY ==
[2019-05-15 09:40] VITALS: BMI 39.6
--- NOTE | 2019-05-16 08:27 | HP_ITS ---
Intake Vital Signs 05/15/19 Body Mass Index (BMI) 39.6 Intake Visit Reasons: increasing abd pain Chief Complaint: nausea/vomitting/diarrhea/sob Certified Home Health Aide Required: No Is patient in pain?: Yes (LLQ abominal pain) Allergies niacin Allergy (Verified 05/15/19 09:39) Itching gabapentin [From Neurontin] Adverse Reaction (Verified 05/15/19 09:39) Other Medications Hydroxyzine Pamoate [Vistaril] 100 mg PO QHS 08/30/13 [History Confirmed 05/15/19] Lorazepam [Ativan] 1 mg PO BID 08/30/13 [History Confirmed 05/15/19] Omeprazole [Prilosec] 40 mg PO DAILY 08/30/13 [History Confirmed 05/15/19] Tizanidine HCl [Zanaflex] 4 mg PO DAILY 08/30/13 [History Confirmed 05/15/19] traZODone [Desyrel] 100 mg PO QHS 08/30/13 [History Confirmed 05/15/19] Lisinopril/Hydrochlorothiazide [Zestoretic 20/25 Tablet] 1 tab PO DAILY 12/06/14 [History Confirmed 05/15/19] Aspirin [Aspirin, Baby] 81 mg PO DAILY 10/21/17 [History Confirmed 05/15/19] Levothyroxine [Synthroid] 50 mcg PO DAILY 10/21/17 [History Confirmed 05/15/19] Meloxicam 7.5 mg PO DAILY 10/21/17 [History Confirmed 05/15/19] Simvastatin 20 mg PO DAILY PRN 10/21/17 [History Confirmed 05/15/19] buPROPion XL [Wellbutrin Xl] 150 mg PO DAILY 10/21/17 [History Confirmed 05/15/19] conjugated estrogens 0.625 mg/gram vaginal cream See Rx Instructions .ROUTE .COMPLEX #30 g 10/30/18 [Rx Confirmed 05/15/19] metformin ER 1,000 mg tablet,extended release 24hr 1,000 mg PO QPM 10/30/18 [History Confirmed 05/15/19] [facility] Medical History Arthritis (Acute) Back pain (Acute) Diabetes (Acute) Difficulty balancing (Acute) Fatigue (Acute) Limb weakness (Acute) Neck pain (Acute) Shoulder pain (Acute) Thyroid disease (Acute) Hypertension (Chronic) Surgical History History of back surgery (Acute) Hx of hysterectomy (Acute) Hx of total knee replacement (Acute) hx of plantar fasciotomy (Acute) Family History Sister Breast cancer Other Arthritis Diabetes Heart disease Social History (Updated 05/16/19 @ 08:27 by Hanna Urbano MD) Smoking Status: Former smoker alcohol intake: never substance use type: does not use caffeine: No what type of physical activity do you participate in: none seatbelt use: always do you feel safe at home: Yes additional social history: [employer] Patient is disabled HPI HPI HPI: FLEX WOOTEN, is a 59 F who presents to the office today for HPI HPI Surgical H&P: Yes HPI: FLEX WOOTEN, is a 59 F who presents to the office today for continued left lower quadrant pain. Patient's states that on Tuesday her left lower quadrant pain was stabbing and a 9/10 on Tuesday which is sort of 4/10 again Tuesday was a little bit better but still about a 4 and today states slow but worse at a 5/10. Patient states the pain can be a little bit worse with bending. Patient states she has not eaten any seeds that she does have history diverticulitis. Her last CT in November showed diverticular disease but no diverticulitis. Patient also states that since she was last seen last year she has diarrhea about 90% of the time denies any blood per rectum. Patient states that when she does get the pain she just does not eat as much but she is able to drink well. She notices that her diarrhea and pain can get worse with ice cream or milk so she has avoided that. She does drink a cold coffee drink daily which may also have some dairy in it. Exam Const General: cooperative, comfortable, no acute distress Resp Effort & Inspection: normal respiratory effort Cardio Rate: regular rate GI Inspection: non-distended Palpation: soft, no guarding, tender (Left lower quadrant greater than right lower quadrant, no peritoneal signs), other (Pain pump in the right lower abdomen) Assessment & Plan Problems 1. LLQ abdominal pain R10.32 2. Diarrhea R19.[address] a/p-schedule for tomorrow r/o diverticulitis, cbc/bmp, stool studies I have discussed the above with the patient. I have offered the patient colonoscopy for evaluation. We will plan for random biopsies due to the diarrhea I have explained the risks/benefits of the procedure and described the procedure. I have discussed the risks with the patient, including but not limited to: infection, bleeding, perforation of the GI tract requiring emergency surgery, inability to complete the procedure, injury to any internal organs, complications of anesthesia, etc. - the patient understands and agrees to proceed. I have answered all the patient's questions to the patient's satisfaction and the patient has no further questions. The patient has been given instructions for the colon cleansing preparation. 1 day of clears miralax, dulcolax Hanna Urbano M.D. Pager: [phone] [facility] [address] [place] [address], [facility], [address] [place] [address] Office: [phone] Orders Orders: Abdomen/Pelvis WITH Contrast 05/15/19 R10.32 Basic Metabolic Profile (BMP) 05/15/19 R19.7 CBC W/Diff, Automated 05/15/19 R10.32 CDIFF (Molecular) 05/15/19 R10.32, R19.7 Stool Lactoferrin/WBC 05/15/19 R19.7 Ova and Parasites 8623 05/15/19 R19.7 Plan Detail Follow Up Will discuss CT and lab results with patient once completed, and will plan to schedule colonoscopy Coding Level of Care Code Off vis,est,level 3 Diagnoses LLQ abdominal pain R10.32 Diarrhea R19.7 05/16/19 0827 <Electronically signed by Hanna Rodríguez am, MD> Date _ Hanna Urbano MD I have examined the patient the following changes are noted: Patient CT abdomen pelvis with p.o. and IV contrast not show any signs of diverticulitis or inflammation in the left lower quadrant. Patient states her left lower quadrant pain, comes and goes and can get better after bowel movement. Patient is also question whether she could be lactose intolerant as she does get diarrhea with ice cream/milk and also normally has a cold coffee drink that also contains dairy. Patient will try to eliminate dairy from her diet. Patient's labs also had a normal white blood cell count, negative C. difficile negative stool lactoferrin. We will plan to do random biopsies from the colonoscopy to search for any other source of the diarrhea.
[2019-05-22] VITALS (7 sets, daily range): BP systolic 105–138; BP diastolic 62–73; PULSE 59–71; RESP 16–18; TEMP 36.4–36.9; O2SAT 92–96; BMI 39.4
--- NOTE | 2019-05-22 | COLBX_PTH ---
PATIENT: FLEX WOOTEN LOC: EN U#:[id number] AGE/SX: 59/F ROOM: RE05/22/[address]: Dr. Hanna Urbano MD : 1960 BED: DIS: 05/22/2019 SPEC #: [id number] RECD: 05/22/19 13:59 STATUS: SARAH STEPHANIE #: [id number] NEENA: 05/22/19 00:[address]: Hanna Urbano DEPT: SURGICAL PATHOLOGY RECD BY: Maikel Dorman ENTERED: 05/22/19 14:00 SP TYPE: COLON BX EDU DR: Dr. Rica Padgett DO Tissues: A - Descending colon B - Sigmoid colon biopsy Procedures: Surgery Specimen Level IV HEADER OPERATION: Colonoscopy ([facility]) PRE-OP DIAGNOSIS: [facility] abdomen pain, diarrhea TISSUE SUBMITTED: A - Biopsy of descending colon random, B - Biopsy of sigmoid colon random MICROSCOPIC DIAGNOSIS A. Descending colon, biopsy: No pathologic diagnosis. B. Sigmoid colon, biopsy: No pathologic diagnosis. AM:nakita 05/23/19 MICROSCOPIC DESCRIPTION Slides are reviewed. GROSS DESCRIPTION A - Received in fixative is one container labeled with the patient's name and designated biopsy of descending colon. The specimen consists of one irregular fragment of light hoang soft tissue that measures 0.2 x 0.5 x 0.2 cm. The specimen is totally submitted in one cassette. B - Received in fixative is one container labeled with the patient's name and designated sigmoid colon, random. The specimen consists of one irregular fragment of light hoang soft tissue that measures 0.5 x 0.3 x 0.1 cm. The specimen is totally submitted in one cassette. / AM:nakita 05/22/19 TC:5 CPT: 68311 x2
[2019-05-22] MEDS: Lactated Ringers 1,000 ML 100 ML IV (10:45)
[2019-05-22 10:50] LABS: Bedside Glucose 127 mg/dL (70-110)
--- NOTE | 2019-05-22 11:33 | OP.ENDO_ITS ---
05/22/2019 Rica Padgett [address] [place] [address] Re : Colonoscopy procedure for Antonia Janette Dear Dr. Padgett This procedure was performed on Wednesday, May 22, 2019. My impressions and recommendations are as follows: Impressions : - The entire examined colon is normal on direct and retroflexion views. - Two random biopsies were obtained in the sigmoid colon and in the descending colon. Recommendations : - Discharge patient to home. - Await pathology results. - Repeat colonoscopy in 10 years for screening purposes. - Continue present medications. My findings are described in the full procedure note, which is enclosed. If I can be of further assistance, please feel free to contact me at Doctor phone number(s): , Work: . Sincerely, MD Hanna Escalera MD 05/22/2019 11:33:21 AM This report has been signed electronically.
== END 2019-05-22 12:22 | disposition home or self-care (01) ==
LOC: EN 10:06 → AC 10:07
PROVIDERS: Family Provider Family Medicine; PCP Family Medicine; Referring Provider Family Medicine; Visit Provider Surgery
PROC: 0DJD8ZZ Inspection of Lower Intestinal Tract, Via Natural or Artificial Opening Endoscopic (ICD-10-PCS; CPT 45378; principal; 2019-05-22 10:55)
DX: R10.32 Left lower quadrant pain (principal); R19.7 Diarrhea, unspecified; R06.02 Shortness of breath; R11.2 Nausea with vomiting, unspecified; E11.9 Type 2 diabetes mellitus without complications; I10 Essential (primary) hypertension; E07.9 Disorder of thyroid, unspecified; Z79.82 Long term (current) use of aspirin; Z79.84 Long term (current) use of oral hypoglycemic drugs; Z79.899 Other long term (current) drug therapy; Z88.8 Allergy status to other drugs, medicaments and biological substances; Z87.891 Personal history of nicotine dependence
CPT/HCPCS: 45380; 82962; 88305; J7120; J2405

== ENCOUNTER 2019-07-09 18:57 | Emergency (ER) | payer OTHER, MEDICARE, SELFPAY ==
[2019-05-22 10:33] VITALS: BMI 39.4
[2019-07-09 18:59] VITALS: BP 158/89; PULSE 79; RESP 18; TEMP 37; O2SAT 95; BMI 41.2
[2019-07-09 19:02] VITALS: O2SAT 95
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
[2019-07-09] MEDS: Ondansetron 4 MG/2 ML Vial IV (19:18)
[2019-07-09] MEDS: HYDROmorphone 1 MG/ML Syringe IV ×2 (19:18→20:44)
[2019-07-09 19:28] LABS: Absolute Lymphocyte Count 2.09 X10^3/uL (0.83-4.51); Absolute Neutrophil Count 4.3 X10^3/uL (2.0-7.7); Basophil# 0.03 X10^3/uL; Basophil% 0.4 % (0-1); Eosinophil# 0.15 X10^3/uL; Eosinophils% 2.1 % (0-5); Hematocrit 41.3 % (37-47); Lymphocyte # 2.09 X10^3/ul (4.0); Lymphocyte % 29.5 % (19-41); Mean Corp Hgb Conc 31.5 g/dL (32-36); Mean Corpuscular Volume 85.7 fL (81-99); Mean Platelet Vol. 9.1 fl (6.2-12.0); Monocyte# 0.45 X10^3/uL; Monocyte% 6.4 % (0-10); NRBC Flagged by Analyzer 0 % (0-5); Neutrophil # 4.32 X10^3/uL (2.7-7.7); Platelet Count 228 K/mm3 (150-450); RBC Distribution Width CV 13.4 % (11.6-14.6); RBC Distribution Width SD 41.5 fl (35.1-43.9); Red Blood Count 4.82 M/mm3 (4.2-5.4); White Blood Count 7.1 K/mm3 (4.4-11.0)
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
[2019-07-09 20:00] LABS: Anion Gap 6 (5-15); BUN 13 mg/dL (7-18); BUN/Creat Ratio 13.1 RATIO (10-20); Calcium,Total 8.9 mg/dL (8.5-10.1); Chloride 101 mmol/L (98-107); Creatinine, Serum 0.99 mg/dL (0.55-1.02); EST Glomerular Filtration Rate 61 mL/min (>60); Est Glom Filt Rate - Afr Amer 73 mL/min (>60); Estimated Creatinine Clearance 51.53 ml/min; Glucose 142 mg/dL (74-106); Potassium 4.1 mmol/L (3.5-5.1); Sodium Level 138 mmol/L (136-145)
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
[2019-07-09 21:08] VITALS: BP 114/66; PULSE 85; RESP 14; O2SAT 97
== END 2019-07-09 21:08 | disposition home or self-care (01) ==
LOC: ED 19:39
PROVIDERS: Emergency Provider Emergency Medicine; Family Provider Family Medicine; PCP Family Medicine
DX: S39.012A Strain of muscle, fascia and tendon of lower back, initial encounter (principal); V43.62XA Car passenger injured in collision with other type car in traffic accident, initial encounter; Y93.9 Activity, unspecified; Y92.9 Unspecified place or not applicable; Y99.9 Unspecified external cause status; Z79.84 Long term (current) use of oral hypoglycemic drugs; Z79.82 Long term (current) use of aspirin; Z79.899 Other long term (current) drug therapy; Z88.8 Allergy status to other drugs, medicaments and biological substances; Z87.891 Personal history of nicotine dependence; Z90.710 Acquired absence of both cervix and uterus
CPT/HCPCS: 71045; 74176; 80048; 85025; 96374; 96375; 96376; 99285; A4216; J2405

== ENCOUNTER 2019-08-11 19:12 | Emergency (ER) | payer MEDICARE, OTHER, SELFPAY ==
[2019-08-11 19:13] VITALS: BP 108/73; PULSE 67; RESP 18; TEMP 36.8; O2SAT 97; BMI 38.0
--- NOTE | 2019-08-11 19:55 | ED.DCSUM_ITS ---
History of Present Illness Chief Complaint: Back Informant: Patient, Significant Other Onset: Today Context: Sudden Onset Timing: Continuous Quality: Pain central low back Location: Lumbar region Current Severity: Mild Maximum Severity: Severe Worsened by: Any type of movement Relieved by: Better if not moving Associated Symptoms: No associated symptoms Narrative: Patient is a 59-year-old woman who presents with abrupt onset of lumbar pain t hat started this morning. Pain is worse with movement. There is no history of renal urolithiasis. She denies dysuria, frequency, urgency or hematuria. Denies bowel bladder dysfunction. Denies saddle paresthesia or anesthesia. She denies radicular pain. Denies foot drop. Denies buckling of her knees going up or down steps today. She does have numbness in her left foot/leg felt to be secondary to prior spine surgery. There is also concerned this may be related to diabetes. She does have symptoms consistent with spinal stenosis. 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 (6) Gastroesophageal reflux disease Status: Chronic Past Medical History - Allergies and Home Meds Allergies/Adverse Reactions: Allergies niacin Allergy (Verified 08/11/19 19:15) Itching gabapentin [From Neurontin] Adverse Reaction (Verified 08/11/19 19:15) Other HOT, REDNESS FELT WEIRD Primary Care Physician: Rica Padgett DO [Primary Care Provider] - Prior records reviewed: Yes Surgical History: hysterectomy, total knee arthroplasty, - - Pain pump insertion, lumbar spine fusion Lives: Spouse/ Significant Other Smoking Status: Former smoker Alcohol: Rare Drugs: None - Family History Maternal Family History: Family History (Last Reviewed 05/15/19 @ 09:38 by Tonia Mercado) Sister Breast cancer Other Arthritis Diabetes Heart disease Family History: Reports: No pertinent history Paternal Family History: Family History (Last Reviewed 05/15/19 @ 09:38 by Tonia Mercado) Sister Breast cancer Other Arthritis Diabetes Heart disease Family History: Reports: No pertinent history Sibling Family History: Family History (Last Reviewed 05/15/19 @ 09:38 by Tonia Mercado) Sister Breast cancer Other Arthritis Diabetes Heart disease Family History: Reports: No pertinent history Review of Systems General: Denies: Chills, Fever, Malaise, Subjective, Sweats, Weight loss Cardiovascular: Denies: Chest pain, Palpitations Respiratory: Denies: Dyspnea Gastrointestinal: Denies: Abdominal pain, Nausea, Vomiting, Diarrhea, Melena, Hematochezia Genitourinary: Denies: Dysuria, Hematuria, Frequency Musculoskeletal: Reports: Back pain. Denies: Myalgias, Arthralgias, Neck pain, Swelling, Extremity Pain, -, - Skin: Denies: Rash, Wounds Neurological: Reports: Parasthesia, Numbness. Denies: Headache, Weakness Endocrine: Denies: Polyuria, Polydipsia Hematologic: Denies: Easy bruising, Easy bleeding Physical Exam Vital Signs/Narrative: Vital Signs Temp Pulse Resp BP Pulse Ox 08/11/19 19:13 98.3 F 67 18 108/73 97 Inital Vital Signs reviewed: Yes General: Well nourished, Well developed, Obese, No Acute Distress Head: Normocephalic, Atraumatic Eyes: Perrl, EOMI ENT: Moist mucous membranes, No rhinorrhea Neck: Supple, Nontender Cardiovascular: Regular rate, Regular rhythm, No murmurs Respiratory: No distress, CTA bilaterally, Chest nontender Abdomen: Soft, Nontender, Nondistended, Normal bowel sounds Rectal: - - Normal gluteal sensation Back: Normal Inspection, Spinal tenderness. Negative for: CVA tenderness Extremities: Nontender, No edema Skin: Normal color, No rash Neurological: Alert, Oriented x3, Cranial nerves II-XII grossly intact, Normal Strength, Normal Sensation, Normal DTR, - - EHL is intact. Patellar ankle reflexes are 1+ and symmetric. Straight leg test and crossover test are negative. On the right side she complained of pain that she localizes right side of the sacrum. Psychological: Normal affect, Normal Mood Diagnostic/Tx/Re-eval - Medical Decision Making With abrupt onset of pain. Because of the abrupt onset of pain a UA was obtained to assess for blood and possibility of atypical presentation for ureterolithiasis. Based on history and physical suspect this to be muscular strain. She was medicated with IV morphine. He was reassessed at 2220. She states she had marked improvement. The pain is coming back. She was given additional dose of morphine and we discharged home. Since he is in pain management she understands that I cannot write a prescription for any pain medicine. ED Disposition - Plan for ED Patient: Disposition: Home or Assisted Living Diagnosis: Low back pain Instructions: BACK AND NECK PAIN, General Referrals: Rica Padgett DO [Primary Care Provider] - As Needed
[2019-08-11] MEDS: Ondansetron 4 MG/2 ML Vial IV (20:29)
[2019-08-11] MEDS: morphine 8 MG/ML Syringe IV (20:30)
[2019-08-11 20:40] LABS: Bacteria 0 SEEN /hpf (None Seen); Mucous, Urine 0 SEEN /hpf (<or=2+); Red Blood Cells-Urine 0 SEEN /hpf (0-5)
[2019-08-11 20:41] LABS: Color, Urine Yellow (Yellow); Glucose, Dipstick Normal (Normal); Ketone-Dipstick Negative (Negative); Leukocyte Esterase-Dipstick Negative /ul (Negative); Nitrite-Dipstick Negative (Negative); Occult Blood-Urine Negative /ul (Negative); Protein-Dipstick Negative (Negative); Urine Bilirubin Dipstick Negative (Negative); Urine Clarity Clear (Clear); Urine Urobilinogen Normal (Normal)
[2019-08-11 20:59] LABS: Squamous Epithelial Cells - UA 0-5 SEEN /hpf (5-10); White Blood Cells 0-5 SEEN /hpf (0-5)
[2019-08-11 21:08] VITALS: BP 130/64; PULSE 66; RESP 15; O2SAT 92
[2019-08-11] MEDS: morphine 8 MG/ML Syringe 6 MG IV (22:57)
[2019-08-11 22:58] VITALS: BP 143/72; PULSE 56; RESP 15; O2SAT 93
== END 2019-08-11 23:15 | disposition home or self-care (01) ==
PROVIDERS: Emergency Provider Emergency Medicine; Family Provider Family Medicine; PCP Family Medicine
DX: M54.5 Low back pain (principal); R20.0 Anesthesia of skin; E11.40 Type 2 diabetes mellitus with diabetic neuropathy, unspecified; M47.816 Spondylosis without myelopathy or radiculopathy, lumbar region; K21.9 Gastro-esophageal reflux disease without esophagitis; E66.9 Obesity, unspecified; Z79.84 Long term (current) use of oral hypoglycemic drugs; Z79.82 Long term (current) use of aspirin; Z79.899 Other long term (current) drug therapy; Z88.8 Allergy status to other drugs, medicaments and biological substances; Z87.891 Personal history of nicotine dependence; Z90.710 Acquired absence of both cervix and uterus
CPT/HCPCS: 81001; 96374; 96375; 96376; 99283; A4216; J2405

== ENCOUNTER → 2019-09-17 12:47 | Outpatient (CLI) | payer MEDICARE, OTHER, SELFPAY ==
--- NOTE | 2019-09-17 13:15 | RAD_ITS ---
HISTORY: NECK AND UPPER BACK PAIN TECHNIQUE: Cervical spine 3 views Number of images including paperwork: 4 COMPARISON: 08/10/2016 FINDINGS: VERTEBRAE: No acute fracture. VERTEBRAL ALIGNMENT: No traumatic subluxation. DISKS AND JOINTS: No significant degenerative changes. SOFT TISSUES: Unremarkable paraspinous soft tissues. RAD/Cerv Spine 2 or 3 Views IMPRESSION: Unremarkable cervical spine. at 2341 Reported and signed by: Paola Smiley MD Electronically Signed: Paola Smiley MD at 23:41 EST Tel , Service support ,
--- NOTE | 2019-09-17 13:15 | RAD_ITS ---
HISTORY: NECK AND UPPER BACK PAIN TECHNIQUE: Thoracic spine 3 views Number of images including paperwork: 3 COMPARISON: 06/09/2018 FINDINGS: VERTEBRAE: No acute fracture. VERTEBRAL ALIGNMENT: No traumatic subluxation. DISKS AND JOINTS: Multilevel mild to moderate discogenic degenerative changes and flowing thoracic osteophytes appear grossly similar. SOFT TISSUES: Unremarkable paraspinous soft tissues. Spinal catheter noted with tip at the T10 level. RAD/Thoracic Spine 3 Views IMPRESSION: No acute osseous abnormality of the thoracic spine. Thoracic spondylosis. at 2339 Reported and signed by: Paola Smiley MD Electronically Signed: Paola Smiley MD at 23:39 EST Tel , Service support ,
[2019-09-17 13:41] LABS: Amphetamine Urine VISTA NEGATIVE (<1000 ng/mL); Barbiturate Urine VISTA NEGATIVE (< 200 ng/mL); Benzodiazepine Urine VISTA NEGATIVE (< 200 ng/mL); Cocaine Urine VISTA NEGATIVE (< 300 ng/mL); Ecstacy Urine VISTA POSITIVE (< 500 ng/mL); Methadone Urine VISTA NEGATIVE (< 300 ng/mL); PCP Urine VISTA NEGATIVE (< 25 ng/mL); THC Urine VISTA NEGATIVE (< 50 ng/mL); Vista UDS pH Range 5
== END ==
PROVIDERS: PCP Family Medicine; Referring Provider Anesthesiology Pain Medicine; Visit Provider Anesthesiology Pain Medicine
DX: F11.20 Opioid dependence, uncomplicated (principal); M54.9 Dorsalgia, unspecified
CPT/HCPCS: 72040; 72072; 80307

== ENCOUNTER 2019-10-24 11:30 | Outpatient (RCR) | payer MEDICARE, OTHER, SELFPAY ==
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
--- NOTE | 2019-11-21 16:12 | HP.PT.NRP ---
FLEX WOOTEN was seen in my office for initial evaluation on 09/18/19. The following Plan of Care was established for this patient: Initial Frequency: 2-3x /Week Initial Duration: 4-6 Weeks Patient/Client Instruction: Educate patient on: Condition, Plan of Care, Risk Factors, Benefits of Fitness Program For the Purpose of:: To improve self management Therapeutic Exercise to Include: Strength training, Endurance training, Body mechanics, Postural training, Flexibilty training, Neuromotor development, Active ROM, Scapular Strength/Stabilization For the Purpose of:: To decrease pain, To increase ROM, To improve muscle performance and motor function, To increase tolerance to activity/condition/position, To improve ability of physical actions for home/community/work/leisure Ultrasound (thermal/non thermal): Yes - CERVICAL AND THORACIC For the Purpose of:: To decrease pain, To decrease swelling/inflammation, To improve nutrient delivery to tissue This patient was last seen in our office . Pertinent comments regarding their Physical therapy will appear below: This patient has not returned to Physical Therapy and is appropriate to return to MD for further follow-up as needed. At this point I will be discontinuing this patient from physical therapy. I would be happy to see this patient again in the future if found appropriate by the physician. Thank you! Beth Brink, PT, Cert MDT
== END 2019-10-24 19:00 | disposition home or self-care (01) ==
LOC: PT 11:30
PROVIDERS: Family Provider Family Medicine; PCP Family Medicine; Referring Provider Family Medicine; Visit Provider Family Medicine
DX: M54.6 Pain in thoracic spine (principal); M54.2 Cervicalgia
CPT/HCPCS: 97035; 97112; 97162; 97164; 97530

== ENCOUNTER → 2019-12-11 10:29 | Outpatient (CLI) | payer OTHER, MEDICARE, SELFPAY ==
--- NOTE | 2019-12-11 10:33 | RAD_ITS ---
STUDY: X-RAY - LEFT SHOULDER REASON FOR EXAM: Female, 59 years old. CHRONIC BILATERAL PAIN, GETTING WORSE RECENTLY TECHNIQUE: 4 view(s) of the shoulder. COMPARISON: None. FINDINGS: Normal glenohumeral articulation. There is hypertrophic osteoarthrosis of the acromioclavicular joint with inferior osseous spur formation. Normal acromion. Normal humeral head and visualized proximal humerus. The soft tissue structures are unremarkable. Normal visualized pulmonary apex. RAD/Shoulder min 2 Views IMPRESSION: Arthrosis of the acromioclavicular joint. Electronically Signed: Stan Corral, at 14:47 EDT , Service support ,
--- NOTE | 2019-12-11 10:33 | RAD_ITS ---
STUDY: X-RAY - RIGHT SHOULDER REASON FOR EXAM: Female, 59 years old. CHRONIC BILATERAL PAIN, GETTING WORSE RECENTLY TECHNIQUE: 4 view(s) of the shoulder. COMPARISON: None. FINDINGS: Normal glenohumeral articulation. Normal acromioclavicular joint. Normal acromion. Normal humeral head and visualized proximal humerus. There is periarticular soft tissue calcification consistent with a calcific tendinitis. Normal visualized pulmonary apex. RAD/Shoulder min 2 Views IMPRESSION: Calcific tendinitis. Electronically Signed: Stan Corral, at 14:48 EDT , Service support ,
== END ==
PROVIDERS: PCP Family Medicine; Referring Provider Family Medicine; Visit Provider Family Medicine
DX: R29.898 Other symptoms and signs involving the musculoskeletal system (principal); M25.511 Pain in right shoulder; M25.512 Pain in left shoulder
CPT/HCPCS: 73030

== ENCOUNTER 2019-12-15 15:10 | Emergency (ER) | payer OTHER, MEDICARE, SELFPAY ==
[2019-12-15 15:11] VITALS: BP 131/76; PULSE 70; RESP 18; TEMP 36.1; O2SAT 93; BMI 39.4
--- NOTE | 2019-12-15 15:39 | ED.VIS.UPPEX ---
History of Present Illness Chief Complaint: Upper Extremity Injury Informant: Patient Occurred: Weeks Narrative: Patient is a 59-year-old female with history and including chronic pain presenting with worsening right shoulder pain. Patient states she is been having issues with her right shoulder for some time. Her doctor actually ordered x-rays of the shoulder on Tuesday, 5 days ago. X-rays are reviewed which showed calcific tendinitis and some osteoarthritis. She denies any radiation of pain. She describes as throbbing and sharp. Patient has pain most pronounced in the anterior aspect of her shoulder. Is worse with range of motion. She states he is having a hard time doing her activities of daily living including wiping herself because the pain is so bad. Patient takes hydrocodone at baseline and feels it is not helping. In addition she receives regular cortisone injections by pain management and for her neck. She is also been taken Tylenol and ibuprofen with no relief of her pain. Patient has been referred to orthopedics and is waiting on appointment for follow-up. She was not sure if this is related to her carpal tunnel syndrome that she has in her right hand. Patient wears a brace for this. Patient denies any injury. 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 Past Medical History - Allergies and Home Meds Allergies/Adverse Reactions: Allergies niacin Allergy (Verified 12/15/19 15:13) Itching gabapentin [From Neurontin] Adverse Reaction (Verified 12/15/19 15:13) Other HOT, REDNESS FELT WEIRD Primary Care Physician: Rica Padgett DO [Primary Care Provider] - Past Medical History: - - Diabetes mellitus, neuropathy, spinal stenosis, GERD, hypertension, thyroid disease Surgical History: hysterectomy, total knee arthroplasty, - - Pain pump insertion, lumbar spine fusion Smoking Status: Former smoker - Family History Maternal Family History: Family History (Last Reviewed 05/15/19 @ 09:38 by Tonia Mercado) Sister Breast cancer Other Arthritis Diabetes Heart disease Family History: Reports: No pertinent history Paternal Family History: Family History (Last Reviewed 05/15/19 @ 09:38 by Tonia Mercado) Sister Breast cancer Other Arthritis Diabetes Heart disease Family History: Reports: No pertinent history Sibling Family History: Family History (Last Reviewed 05/15/19 @ 09:38 by Tonia Mercado) Sister Breast cancer Other Arthritis Diabetes Heart disease Family History: Reports: No pertinent history Review of Systems General: Denies: Chills, Fever, Sweats Eyes: Denies: Visual changes - bilaterally, Diplopia ENT: Denies: Rhinorrhea, Sore throat Cardiovascular: Denies: Chest pain, Palpitations Respiratory: Denies: Dyspnea, Cough, Dyspnea on exertion Gastrointestinal: Denies: Abdominal pain, Nausea, Vomiting, Diarrhea, Melena, Hematochezia Genitourinary: Denies: Dysuria, Hematuria, Frequency Musculoskeletal: Reports: Arthralgias - right shoulder, Extremity Pain - right shoulder. Denies: Back pain Skin: Denies: Rash, Wounds Neurological: Denies: Headache, Weakness, Numbness Physical Exam Vital Signs/Narrative: Vital Signs Temp Pulse Resp BP Pulse Ox 12/15/19 15:11 96.9 F L 70 18 131/76 H 93 Inital Vital Signs reviewed: Yes Right Shoulder: Limited ROM - secondary to pain. Negative for: Contusion, Deformity, Edema - Pain over anterior aspect with palpation at the bicipital groove Right Humerus: Negative for: Contusion, Edema, Limited ROM Right Elbow: Negative for: Contusion, Edema, Limited ROM Right Forearm: Negative for: Contusion, Edema, Limited ROM Right Wrist: - - Immobilized in a brace. 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 Negative for: Contusion, Deformity, Edema, Hematoma, Limited ROM General: Well nourished, Well developed, Obese Head: Normocephalic, Atraumatic Eyes: Perrl, EOMI ENT: No Trauma, Moist Mucous Membranes Neck: Nontender, Full ROM Cardiovascular: Regular rate, Regular rhythm, No murmurs Respiratory: No distress, CTA bilaterally, Chest nontender Skin: Normal color, No rash Neurological: Alert, Oriented x3, Cranial nerves II-XII grossly intact, Normal Strength, Normal Sensation Psychological: Normal affect Diagnostic/Tx/Re-eval - Medical Decision Making Patient is evaluated for worsening shoulder pain. Patient is pain management and has a pain contract. She cannot be sent home with for the pain medication. She is given a one-time dose of IM Dilaudid for immediate pain control. She will call her pain management doctor and her PCP on Tuesday. Pain is most pronounced over her bicipital groove. Patient did have an x-ray that showed calcific tendinitis. This is probably related to her pain. As patient receives regular cortisone injections I did not prescribe her any steroids at this time. She is neurovascular intact. Patient is counseled on signs and symptoms requiring return to the emergency room. Patient verbalizes agreement and understand this plan. Patient discharged home in stable and improved condition. ED Disposition - Plan for ED Patient: Disposition: Home or Assisted Living Diagnosis: Right shoulder pain Instructions: ED Shoulder Pain Uncertain Cause Referrals: Rica Padgett DO [Primary Care Provider] -
[2019-12-15] MEDS: HYDROmorphone 1 MG/ML Syringe IM (15:44)
[2019-12-15 16:05] VITALS: PULSE 68; RESP 16; O2SAT 97
--- NOTE | 2019-12-15 16:05 | ED.RN ---
REVIEWED D/C INSTRUCTIONS, FOLLOW UP CARE, AND S/S THAT WOULD WARRANT A RETURN TO THE ED WITH PT. PT VERBALIZED AN UNDERSTANDING AND DENIES FURTHER QUESTIONS FOR THIS RN. PT SKIN P/W/D, RESP EVEN AND UNLABORED, PT A&O X 3, NO DISTRESS NOTED. PT AMBULATED OUT OF ED, GAIT STEADY.
== END 2019-12-15 16:07 | disposition home or self-care (01) ==
LOC: ED 15:54
PROVIDERS: Emergency Provider Emergency Medicine; PCP Family Medicine
DX: M25.511 Pain in right shoulder (principal); G89.29 Other chronic pain; E11.40 Type 2 diabetes mellitus with diabetic neuropathy, unspecified; I10 Essential (primary) hypertension; E07.9 Disorder of thyroid, unspecified; K21.9 Gastro-esophageal reflux disease without esophagitis; Z79.84 Long term (current) use of oral hypoglycemic drugs; Z79.82 Long term (current) use of aspirin; Z79.1 Long term (current) use of non-steroidal anti-inflammatories (NSAID); Z79.899 Other long term (current) drug therapy; Z88.8 Allergy status to other drugs, medicaments and biological substances; Z87.891 Personal history of nicotine dependence; Z90.710 Acquired absence of both cervix and uterus
CPT/HCPCS: 96372; 99282

== ENCOUNTER → 2020-01-08 12:11 | Outpatient (CLI) | payer MEDICARE, OTHER, SELFPAY ==
[2019-12-15 15:11] VITALS: BMI 39.4
--- NOTE | 2020-01-08 12:48 | EKG12_ITS ---
Test Reason : PRE-OP Blood Pressure : / mmHG Vent. Rate : 071 BPM Atrial Rate : 071 BPM P-R Int : 126 ms QRS Dur : 086 ms QT Int : 400 ms P-R-T Axes : 011 001 008 degrees QTc Int : 434 ms Normal sinus rhythm Poor R wave progression Confirmed by LIZETH DAVIS, MIRLANDE ([id number]), pictures editor RADHA DRUMMOND ([id number]) on 01/09/2020 10:17:45 AM Referred By: Henna Mcpherson Confirmed By:MIRLANDE STANLEY MD
[2020-01-08 14:33] LABS: Hematocrit 37.9 % (37-47); Hemoglobin 11.5 g/dL (12.0-15.0); Mean Corp Hgb Conc 30.3 g/dL (32-36); Mean Corpuscular Hgb 25.1 pg (27.0-32.0); Mean Corpuscular Volume 82.6 fL (81-99); Mean Platelet Vol. 9.2 fl (6.2-12.0); Platelet Count 280 K/mm3 (150-450); RBC Distribution Width CV 14.4 % (11.6-14.6); RBC Distribution Width SD 42.9 fl (35.1-43.9); Red Blood Count 4.59 M/mm3 (4.2-5.4)
[2020-01-08 14:50] LABS: Hemoglobin A1c 8.3 % (4.2-6.3)
[2020-01-08 14:56] LABS: Anion Gap 11 (5-15); BUN 12 mg/dL (7-18); BUN/Creat Ratio 15.9 RATIO (10-20); Calcium,Total 9.6 mg/dL (8.5-10.1); Chloride 98 mmol/L (98-107); Creatinine, Serum 0.75 mg/dL (0.55-1.02); EST Glomerular Filtration Rate 83 mL/min (>60); Est Glom Filt Rate - Afr Amer 100 mL/min (>60); Glucose 166 mg/dL (74-106); Potassium 4.2 mmol/L (3.5-5.1); Sodium Level 139 mmol/L (136-145)
== END ==
PROVIDERS: PCP Family Medicine; Referring Provider Physician Assistant; Visit Provider Physician Assistant
DX: Z01.810 Encounter for preprocedural cardiovascular examination (principal); Z01.818 Encounter for other preprocedural examination; E11.9 Type 2 diabetes mellitus without complications
CPT/HCPCS: 36415; 80048; 83036; 85027; 93005

== ENCOUNTER → 2020-01-28 11:15 | Outpatient (CLI) | payer MEDICARE, OTHER, SELFPAY ==
[2020-01-28 13:26] LABS: Hemoglobin A1c 7.4 % (3.8-5.6)
== END ==
PROVIDERS: PCP Family Medicine; Visit Provider Family Medicine
DX: Z01.818 Encounter for other preprocedural examination (principal); E11.65 Type 2 diabetes mellitus with hyperglycemia
CPT/HCPCS: 36415; 83036

== ENCOUNTER → 2020-03-27 10:15 | Outpatient (CLI) | payer MEDICARE, OTHER, SELFPAY ==
--- NOTE | 2020-03-27 10:28 | EKG12_ITS ---
Test Reason : PRE OP Blood Pressure : / mmHG Vent. Rate : 077 BPM Atrial Rate : 077 BPM P-R Int : 134 ms QRS Dur : 086 ms QT Int : 386 ms P-R-T Axes : 055 001 018 degrees QTc Int : 436 ms Normal sinus rhythm Nonspecific ST abnormality Abnormal ECG Confirmed by SURY DAVIS, KELLIE ([id number]), magazine editor MELISSA FITZPATRICK ([id number]) on 03/31/2020 2:01:37 PM Referred By: Alayna Landon Confirmed By:COLIN GA MD
[2020-03-27 11:36] LABS: Absolute Lymphocyte Count 2.29 X10^3/uL (0.83-4.51); Absolute Neutrophil Count 7.5 X10^3/uL (2.0-7.7); Basophil# 0.04 X10^3/uL; Basophil% 0.4 % (0-1); Eosinophil# 0.24 X10^3/uL; Eosinophils% 2.2 % (0-5); Hematocrit 39.9 % (37-47); Hemoglobin 11.8 g/dL (12.0-15.0); Lymphocyte # 2.29 X10^3/ul (4.0); Mean Corp Hgb Conc 29.6 g/dL (32-36); Mean Corpuscular Hgb 24.4 pg (27.0-32.0); Mean Corpuscular Volume 82.6 fL (81-99); Monocyte# 0.79 X10^3/uL; Monocyte% 7.3 % (0-10); NRBC Flagged by Analyzer 0 % (0-5); Neutrophil # 7.48 X10^3/uL (2.7-7.7); Neutrophil % 68.7 % (47-70); Platelet Count 368 K/mm3 (150-450); RBC Distribution Width CV 14.9 % (11.6-14.6); RBC Distribution Width SD 44.7 fl (35.1-43.9); Red Blood Count 4.83 M/mm3 (4.2-5.4); White Blood Count 10.9 K/mm3 (4.4-11.0)
[2020-03-27 12:02] LABS: Anion Gap 3 (5-15); BUN 15 mg/dL (7-18); BUN/Creat Ratio 20.1 RATIO (10-20); Calcium,Total 9.2 mg/dL (8.5-10.1); Chloride 103 mmol/L (98-107); Creatinine, Serum 0.75 mg/dL (0.55-1.02); EST Glomerular Filtration Rate 84 mL/min (>60); Est Glom Filt Rate - Afr Amer 101 mL/min (>60); Glucose 112 mg/dL (74-106); Potassium 4.3 mmol/L (3.5-5.1); Sodium Level 138 mmol/L (136-145)
== END ==
PROVIDERS: PCP Family Medicine; Referring Provider Registered Nurse; Visit Provider Registered Nurse
DX: Z01.818 Encounter for other preprocedural examination (principal)
CPT/HCPCS: 36415; 80048; 85025; 93005

== ENCOUNTER → 2020-04-17 08:48 | Outpatient (CLI) | payer MEDICARE, OTHER, SELFPAY ==
[2020-04-17 12:51] LABS: Anion Gap 5 (5-15); BUN 29 mg/dL (7-18); BUN/Creat Ratio 25.7 RATIO (10-20); Calcium,Total 8.6 mg/dL (8.5-10.1); Chloride 103 mmol/L (98-107); Creatinine, Serum 1.13 mg/dL (0.55-1.02); EST Glomerular Filtration Rate 52 mL/min (>60); Est Glom Filt Rate - Afr Amer 63 mL/min (>60); Glucose 177 mg/dL (74-106); Potassium 4.4 mmol/L (3.5-5.1); Sodium Level 138 mmol/L (136-145)
== END ==
PROVIDERS: PCP Family Medicine; Visit Provider Family Medicine
DX: E87.6 Hypokalemia (principal); Z51.81 Encounter for therapeutic drug level monitoring
CPT/HCPCS: 36415; 80048

== ENCOUNTER → 2020-05-14 14:25 | Outpatient (CLI) | payer MEDICARE, OTHER, SELFPAY ==
[2020-05-14 16:52] LABS: Absolute Lymphocyte Count 1.62 X10^3/uL (0.83-4.51); Absolute Neutrophil Count 5.1 X10^3/uL (2.0-7.7); Basophil# 0.05 X10^3/uL; Basophil% 0.7 % (0-1); Eosinophil# 0.24 X10^3/uL; Eosinophils% 3.2 % (0-5); Hematocrit 37.1 % (37-47); Hemoglobin 10.8 g/dL (12.0-15.0); Lymphocyte # 1.62 X10^3/ul (4.0); Lymphocyte % 21.5 % (19-41); Mean Corp Hgb Conc 29.1 g/dL (32-36); Mean Corpuscular Hgb 23.9 pg (27.0-32.0); Mean Corpuscular Volume 82.1 fL (81-99); Mean Platelet Vol. 9.2 fl (6.2-12.0); Monocyte# 0.44 X10^3/uL; Monocyte% 5.8 % (0-10); NRBC Flagged by Analyzer 0 % (0-5); Neutrophil # 5.14 X10^3/uL (2.7-7.7); Neutrophil % 68.3 % (47-70); Platelet Count 304 K/mm3 (150-450); RBC Distribution Width SD 45.1 fl (35.1-43.9); Red Blood Count 4.52 M/mm3 (4.2-5.4); White Blood Count 7.5 K/mm3 (4.4-11.0)
[2020-05-14 17:45] LABS: ALB/GLOB Ratio 0.6 RATIO (0.9-2.4); AST(SGOT) 18 U/L (15-37); Alanine Aminotransfer ALT/SGPT 33 U/L (13-56); Alkaline Phosphatase 103 U/L (45-117); Anion Gap 3 (5-15); BUN 20 mg/dL (7-18); BUN/Creat Ratio 24.9 RATIO (10-20); Calcium,Total 8.9 mg/dL (8.5-10.1); Chloride 105 mmol/L (98-107); EST Glomerular Filtration Rate 77 mL/min (>60); Est Glom Filt Rate - Afr Amer 93 mL/min (>60); Globulin 4.9 g/dL (2.2-4.2); Glucose 258 mg/dL (74-106); Potassium 4.1 mmol/L (3.5-5.1); Protein, Total 7.9 g/dL (6.4-8.2); Sodium Level 139 mmol/L (136-145)
== END ==
PROVIDERS: PCP Family Medicine; Visit Provider Family Medicine
DX: I10 Essential (primary) hypertension (principal); Z51.81 Encounter for therapeutic drug level monitoring
CPT/HCPCS: 36415; 80053; 85025

== ENCOUNTER → 2020-07-29 09:48 | Outpatient (CLI) | payer MEDICARE, OTHER, SELFPAY ==
--- NOTE | 2020-07-29 09:55 | BD_ITS ---
STUDY: DUAL ENERGY X-RAY ABSORPTIOMETRY / DXA REASON FOR EXAM: Female, 60 years old. Age of surgical matthew 26 had a total hysterectomy. Past hx of using an HRT a long time ago. Hx of smoking a long time ago and quit in 1993. Type II diabetic and takes glipazinde and metformin. Pat has back injections. Takes calcium off and on. Hx of a L3-S1 spinal fusion. Does not exercise. TECHNIQUE: Bone Mineral Density (BMD) measurements of lumbar spine and bilateral hips were obtained. COMPARISON: None. FINDINGS: Lumbar Spine (L1-L4): g/cm2 (1.404) / T-score (1.7) / Z-score (3.1) Findings are suggestive of normal bone density with a low fracture risk. Left Femur Total: g/cm2 (1.151) / T-score (1.1) / Z-score (2.2) Left Femoral Neck: g/cm2 (0.957) / T-score (-0.6) / Z-score (0.7) Right Femur Total: g/cm2 (1.177) / T-score (1.3) / Z-score (2.4) Right Femoral Neck: g/cm2 (1.063) / T-score (0.2) / Z-score (1.5) BD/Dexa Bone Density Study IMPRESSION: The patient is considered normal as outlined below according to World Trey Organization (WHO) criteria with a low fracture risk. Reference Information: The T-score is the number of standard deviations above or below the standard which is normal for young adults at their peak bone mineral density. The World Health Organization (WHO) interprets the T-scores as follows: Above -1 Normal bone density Between -1 and -2.5 Osteopenia Equal to / or below -2.5 Osteoporosis As a practical clinical guideline, osteopenia may be graded as follows: Mild -1 through -1.5 Moderate -1.6 through -2.0 Severe -2.1 through -2.4 The Z-score is the number of standard deviations above or below age-matched controls. A Z-score of less than -1.5 would be considered abnormal. References: 1. NIH Osteoporosis and Related Bone Diseases www osteo.org 2. International Society for Clinical Densitometry www iscd.org 3. National Osteoporosis Foundation www nof.org Electronically Signed: Stan Corral, at 14:58 EST , Service support ,
== END ==
PROVIDERS: PCP Family Medicine; Referring Provider Family Medicine; Visit Provider Family Medicine
DX: M81.0 Age-related osteoporosis without current pathological fracture (principal)
CPT/HCPCS: 77080

== ENCOUNTER → 2020-07-30 09:44 | Outpatient (CLI) | payer MEDICARE, OTHER, SELFPAY ==
[2020-07-30 12:39] LABS: Absolute Lymphocyte Count 2.11 X10^3/uL (0.83-4.51); Absolute Neutrophil Count 4.5 X10^3/uL (2.0-7.7); Basophil# 0.05 X10^3/uL; Basophil% 0.7 % (0-1); Eosinophil# 0.35 X10^3/uL; Eosinophils% 4.6 % (0-5); Hematocrit 37.1 % (37-47); Hemoglobin 10.5 g/dL (12.0-15.0); Lymphocyte # 2.11 X10^3/ul (4.0); Lymphocyte % 27.8 % (19-41); Mean Corp Hgb Conc 28.3 g/dL (32-36); Mean Corpuscular Hgb 24.2 pg (27.0-32.0); Mean Corpuscular Volume 85.5 fL (81-99); Mean Platelet Vol. 9.2 fl (6.2-12.0); Monocyte# 0.51 X10^3/uL; Monocyte% 6.7 % (0-10); NRBC Flagged by Analyzer 0 % (0-5); Neutrophil # 4.54 X10^3/uL (2.7-7.7); Neutrophil % 59.7 % (47-70); Platelet Count 289 K/mm3 (150-450); RBC Distribution Width CV 16.6 % (11.6-14.6); RBC Distribution Width SD 50.9 fl (35.1-43.9); Red Blood Count 4.34 M/mm3 (4.2-5.4); White Blood Count 7.6 K/mm3 (4.4-11.0)
[2020-07-30 13:25] LABS: ALB/GLOB Ratio 0.8 RATIO (0.9-2.4); AST(SGOT) 24 U/L (15-37); Alanine Aminotransfer ALT/SGPT 42 U/L (13-56); Albumin, Serum 3.2 g/dL (3.2-5.0); Alkaline Phosphatase 112 U/L (45-117); Anion Gap 6 (5-15); BUN 13 mg/dL (7-18); BUN/Creat Ratio 14.5 RATIO (10-20); Calcium,Total 8.8 mg/dL (8.5-10.1); Chloride 105 mmol/L (98-107); EST Glomerular Filtration Rate 68 mL/min (>60); Est Glom Filt Rate - Afr Amer 82 mL/min (>60); Globulin 4.1 g/dL (2.2-4.2); Glucose 151 mg/dL (74-106); Protein, Total 7.3 g/dL (6.4-8.2); Sodium Level 140 mmol/L (136-145)
== END ==
PROVIDERS: PCP Family Medicine; Visit Provider Family Medicine
DX: E11.65 Type 2 diabetes mellitus with hyperglycemia (principal); M35.1 Other overlap syndromes; Z51.81 Encounter for therapeutic drug level monitoring
CPT/HCPCS: 36415; 80053; 85025

== ENCOUNTER → 2020-08-19 08:21 | Outpatient (CLI) | payer MEDICARE, OTHER, SELFPAY ==
--- NOTE | 2020-08-19 08:29 | BI_ITS ---
MAMMOGRAPHY - BILATERAL SCREENING REASON FOR EXAM: Female, 60 years old. Routine annual screening examination. PERTINENT HISTORY: Sister with breast cancer. Remote right stereotactic breast biopsy. TECHNIQUE: Digital bilateral breast angeles (3D mammographic acquisition) in the CC and MLO projections. 2-D mediolateral oblique (MLO) and craniocaudad (CC) views of both breasts were obtained. CAD: Full Field Digital Mammography with Computer Added Detection was performed. COMPARISON: Comparison is made with prior study dated 11/07/2018, 10/30/2018 and 10/07/2017. FINDINGS: Breast Composition: The breasts are heterogeneously dense, which may obscure small masses. There are no dominant masses or suspicious calcifications. A tissue clip marker is seen in the upper medial aspect of the right breast. The previously seen nodular density at that site has cleared. The cluster of microcalcification is not seen at this time. No other significant abnormalities are identified. BI/SCREEN MAMM (CAD) W/ANGELES BILAT IMPRESSION: Status post right stereotactic breast biopsy. Yearly follow-up mammogram recommended. (A) ASSESSMENT CATEGORY: BIRADS Category 2: Benign. A letter regarding these results will be sent to the patient by the facility within 30 days. Approximately 10% of breast cancers are not detected by mammography. A normal mammogram should not delay biopsy of a clinically suspicious abnormality. [id number] Electronically Signed: Stan Corral, at 9:08 EST , Service support ,
== END ==
PROVIDERS: PCP Family Medicine; Referring Provider Nurse Practitioner Women's Health; Visit Provider Nurse Practitioner Women's Health
DX: Z12.31 Encounter for screening mammogram for malignant neoplasm of breast (principal); M81.0 Age-related osteoporosis without current pathological fracture
CPT/HCPCS: 77063; 77067

== ENCOUNTER 2020-12-08 11:51 | Emergency (ER) | payer MEDICARE, OTHER, SELFPAY ==
[2020-08-19 09:08] VITALS: BMI 42.1
[2020-12-08 11:52] VITALS: BP 147/72; PULSE 79; RESP 18; TEMP 36.7; O2SAT 98; BMI 41.1
--- NOTE | 2020-12-08 14:09 | EKG12_ITS ---
Test Reason : Blood Pressure : / mmHG Vent. Rate : 079 BPM Atrial Rate : 079 BPM P-R Int : 132 ms QRS Dur : 086 ms QT Int : 388 ms P-R-T Axes : 040 -03 010 degrees QTc Int : 444 ms Normal sinus rhythm Minimal voltage criteria for LVH, may be normal variant Inferior infarct , age undetermined Poor R wave progression Abnormal ECG Confirmed by LIZETH DAVIS, MIRLANDE ([id number]), society editor MAIRA JENKINS ([id number]) on 12/10/2020 11:19:30 AM Referred By: GALE Confirmed By:MIRLANDE STANLEY MD
--- NOTE | 2020-12-08 14:10 | RAD_ITS ---
STUDY: X-RAY - RIGHT KNEE REASON FOR EXAM: Female, 60 years old. Pain TECHNIQUE: 4 view(s) of the knee. COMPARISON: Comparison is made with prior examination dated 07/30/2015. FINDINGS: Normal visualized distal femur. Normal visualized proximal tibia and fibula. Normal proximal tibiofibular articulation. There is moderate degenerative arthrosis of the medial femorotibial compartment with moderate joint space narrowing. Normal lateral femorotibial compartment. Normal patellofemoral articulation. The soft tissue structures are unremarkable. RAD/Knee 4 or More Views IMPRESSION: Degenerative arthrosis. Electronically Signed: Stan Corral MD at 15:52 EDT , Service support ,
--- NOTE | 2020-12-08 14:10 | ED.DCSUM_ITS ---
History of Present Illness Chief Complaint: Lower Extremity Injury Detail of Chief Complaint: swelling, no injury Informant: Patient Quality: edema Location: BLE but separate from each other Current Severity: Moderate Maximum Severity: Moderate Worsened by: unk Relieved by: nothing Associated Symptoms: medina without CP. R knee pain x months. Narrative: Patient presents with swelling in her legs. She states that she had a knee replacement in the left 1, had blood clots in that leg that went to her lungs, she was treated with anticoagulants for period of time this was maybe 6 or 7 years ago, and she has had swelling off and on in the left ankle ever since. She is no longer on anticoagulants. Now, she has been having swelling in the right lower extremity for several days over a week, gradual in onset, and now the left 1 has become swollen more so as well. She agrees that they look sy mmetric, however they did not develop together apparently. She states she has been having dyspnea with exertion for months, it is not necessarily worse and she denies any orthopnea or history of heart failure that she knows of. She denies any palpitations, syncope, near syncope. She denies any fevers or chills. She states that her right knee has been hurting for months and she has not had a checked out yet, now her entire right leg is sore everywhere all the way into her foot. She is able to walk, but it hurts. She denies any foreign bodies, injuries, nidus for infection. Also states she has chronic neuropathy in both of her legs/feet, those sharp, needlelike pains have been worse since the swelling has been increased. She states she has a prescription for diuretic, she takes it inconsistently, only as needed when she gets swollen, so she did take it today. 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 (7) Gastroesophageal reflux disease Status: Chronic (8) Osteoarthritis Status: Chronic (9) Mixed connective tissue disease Status: Chronic Past Medical History - Allergies and Home Meds Allergies/Adverse Reactions: Allergies niacin Allergy (Verified 12/08/20 11:54) Itching gabapentin [From Neurontin] Adverse Reaction (Verified 12/08/20 11:54) Other HOT, REDNESS FELT WEIRD Primary Care Physician: Rica Padgett DO [Primary Care Provider] - Surgical History: hysterectomy, total knee arthroplasty, - - Pain pump insertion, lumbar spine fusion Lives: Spouse/ Significant Other Smoking Status: Former smoker - Family History Maternal Family History: Family History (Last Updated 08/19/20 @ 09:28 by Joana Gastelum) Sister Breast cancer Diabetes Kidney disease Other Arthritis Heart disease Family History: Reports: No pertinent history Paternal Family History: Family History (Last Updated 08/19/20 @ 09:28 by Joana Gastelum) Sister Breast cancer Diabetes Kidney disease Other Arthritis Heart disease Family History: Reports: No pertinent history Sibling Family History: Family History (Last Updated 08/19/20 @ 09:28 by Joana Gastelum) Sister Breast cancer Diabetes Kidney disease Other Arthritis Heart disease Family History: Reports: No pertinent history Review of Systems General: Denies: Chills, Fever, Sweats Eyes: Denies: Visual changes - bilaterally, Diplopia ENT: Denies: Bilateral ear pain, Rhinorrhea, Sore throat Cardiovascular: Denies: Chest pain, Palpitations, Heart racing Respiratory: Reports: Dyspnea on exertion. Denies: Cough, Orthopnea, Paroxysmal nocturnal dyspnea Gastrointestinal: Denies: Abdominal pain, Nausea, Vomiting, Diarrhea, Melena, Hematochezia Genitourinary: Denies: Dysuria, Hematuria, Frequency Musculoskeletal: Reports: Back pain - chronic, unchanged, Swelling, Extremity Pain Skin: Denies: Rash, Abscess, Wounds Neurological: Reports: Numbness - feet chronically/neuropathy. Denies: Headache, Weakness Physical Exam Vital Signs/Narrative: Vital Signs Temp Pulse Resp BP Pulse Ox 12/08/20 11:52 98.0 F 79 18 147/72 H 98 Inital Vital Signs reviewed: Yes General: Well nourished, Well developed, Obese, No Acute Distress - Conversive in full sentences Head: Normocephalic, Atraumatic Eyes: Perrl, EOMI ENT: Moist mucous membranes, No rhinorrhea Neck: Supple, Nontender, No lymphadenopathy, No JVD Cardiovascular: Regular rate, Regular rhythm, No murmurs. Negative for: Tachycardia Respiratory: No distress, CTA bilaterally, Chest nontender Abdomen: Soft, Nontender, Nondistended, Normal bowel sounds Back: Normal Inspection. Negative for: CVA tenderness Extremities: Tenderness - Diffuse both lower legs, Edema - Both lower legs, symmetric, 1-2+ to knees. Negative for: Calf Tenderness Skin: No rash, - - Faint erythema throughout right lower leg and the dorsum of the foot with areas of unaffected skin in between, very faint, no warmer than surrounding areas. No palpable cords. No lymphangitis. No nidus for infection seen. Less erythematous left lower extremity. Neurological: Alert, Oriented x3, Cranial nerves II-XII grossly intact, Normal Strength, Normal Sensation Psychological: Normal affect, Normal Mood Diagnostic/Tx/Re-eval Impressions Knee X-Ray 12/08/20 14:10 IMPRESSION: Degenerative arthrosis. Electronically Signed: Stan Corral MD at 15:52 EDT , Service support , Chest X-Ray 12/08/20 15:10 IMPRESSION: Normal x-ray examination of the chest. Electronically Signed: Stan Corral MD at 15:52 EDT , Service support , 12/08/20 14:10 Knee 4 or More Views [RAD] Stat 12/08/20 15:10 Chest 1 View (Portable) [RAD] Stat Laboratory Tests 12/08/20 12/08/20 12/08/20 Range/Units 14:44 14:44 14:44 WBC (4.4-11.0) K/mm3 RBC (4.2-5.4) M/mm3 Hgb (12.0-15.0) g/dL Hct (37-47) % MCV (81-99) fL MCH (27.0-32.0) pg MCHC (32-36) g/dL RDW Std Deviation (35.1-43.9) fl RDW Coeff of Mouna (11.6-14.6) % Plt Count (150-450) K/mm3 MPV (6.2-12.0) fl Immature Gran % (Auto) (0.0-0.9) % Neut % (Auto) (47-70) % Lymph % (Auto) (19-41) % Dixon % (Auto) (0-10) % Eos % (Auto) (0-5) % Baso % (Auto) (0-1) % Absolute Neuts (auto) (2.0-7.7) X10^3/uL Absolute Lymphs (auto) (0.83-4.51) X10^3/uL Nucleated RBC % (0-5) % D-Dimer Quant (PE/DVT) 0.71 H* (0.27-0.49) FEU/ug/m Sodium 136 (136-145) mmol/L Potassium 4.2 (3.5-5.1) mmol/L Chloride 98 (98-107) mmol/L Carbon Dioxide 31.0 (21.0-32.0) mmol/L Anion Gap 7 (5-15) BUN 11 (7-18) mg/dL Creatinine 0.92 (0.55-1.02) mg/dL Estim Creat Clear Calc 54.75 ml/min Est GFR (MDRD) Af Amer 79 (>60) mL/min Est GFR (MDRD) Non-Af 65 (>60) mL/min BUN/Creatinine Ratio 11.9 (10-20) RATIO Glucose 170 H (74-106) mg/dL Calcium 9.4 (8.5-10.1) mg/dL Total Bilirubin 0.30 (0.20-1.00) mg/dL AST 37 (15-37) U/L ALT 80 H (13-56) U/L Alkaline Phosphatase 104 (45-117) U/L Troponin I < 0.015 (<0.045) ng/mL B-Natriuretic Peptide 59.0 (0-100) pg/mL Total Protein 7.9 (6.4-8.2) g/dL Albumin 3.7 (3.2-5.0) g/dL Globulin 4.2 (2.2-4.2) g/dL Albumin/Globulin Ratio 0.9 (0.9-2.4) RATIO Urine Color (Yellow) Urine Clarity (Clear) Urine pH (5.0 - 8.0) Ur Specific [place] (1.002-1.030) Urine Protein (Negative) mg/dl Urine Glucose (UA) (Normal) mg/dl Urine Ketones (Negative) mg/dl Urine Occult Blood (Negative) /ul Urine Nitrite (Negative) Urine Bilirubin (Negative) mg/dL Urine Urobilinogen (Normal) mg/dl Ur Leukocyte Esterase (Negative) /ul Urine RBC (0-5) /hpf Urine WBC (0-5) /hpf Ur Squamous Epith Cells (5-10) /hpf Urine Bacteria (None Seen) /hpf Urine Mucus (<or=2+) /hpf 12/08/20 12/08/20 Range/Units 14:44 14:28 WBC 8.7 (4.4-11.0) K/mm3 RBC 4.41 (4.2-5.4) M/mm3 Hgb 11.4 L (12.0-15.0) g/dL Hct 38.4 (37-47) % MCV 87.1 (81-99) fL MCH 25.9 L (27.0-32.0) pg MCHC 29.7 L (32-36) g/dL RDW Std Deviation 48.5 H (35.1-43.9) fl RDW Coeff of Mouna 15.5 H (11.6-14.6) % Plt Count 249 (150-450) K/mm3 MPV 9.2 (6.2-12.0) fl Immature Gran % (Auto) 0.300 (0.0-0.9) % Neut % (Auto) 62.8 (47-70) % Lymph % (Auto) 27.6 (19-41) % Dixon % (Auto) 6.3 (0-10) % Eos % (Auto) 2.5 (0-5) % Baso % (Auto) 0.5 (0-1) % Absolute Neuts (auto) 5.5 (2.0-7.7) X10^3/uL Absolute Lymphs (auto) 2.41 (0.83-4.51) X10^3/uL Nucleated RBC % 0 (0-5) % D-Dimer Quant (PE/DVT) (0.27-0.49) FEU/ug/m Sodium (136-145) mmol/L Potassium (3.5-5.1) mmol/L Chloride (98-107) mmol/L Carbon Dioxide (21.0-32.0) mmol/L Anion Gap (5-15) BUN (7-18) mg/dL Creatinine (0.55-1.02) mg/dL Estim Creat Clear Calc ml/min Est GFR (MDRD) Af Amer (>60) mL/min Est GFR (MDRD) Non-Af (>60) mL/min BUN/Creatinine Ratio (10-20) RATIO Glucose (74-106) mg/dL Calcium (8.5-10.1) mg/dL Total Bilirubin (0.20-1.00) mg/dL AST (15-37) U/L ALT (13-56) U/L Alkaline Phosphatase (45-117) U/L Troponin I (<0.045) ng/mL B-Natriuretic Peptide (0-100) pg/mL Total Protein (6.4-8.2) g/dL Albumin (3.2-5.0) g/dL Globulin (2.2-4.2) g/dL Albumin/Globulin Ratio (0.9-2.4) RATIO Urine Color Yellow (Yellow) Urine Clarity Clear (Clear) Urine pH 6.0 (5.0 - 8.0) Ur Specific [place] 1.010 (1.002-1.030) Urine Protein Negative (Negative) mg/dl Urine Glucose (UA) Normal (Normal) mg/dl Urine Ketones Negative (Negative) mg/dl Urine Occult Blood Negative (Negative) /ul Urine Nitrite Negative (Negative) Urine Bilirubin Negative (Negative) mg/dL Urine Urobilinogen Normal (Normal) mg/dl Ur Leukocyte Esterase Negative (Negative) /ul Urine RBC 0 SEEN (0-5) /hpf Urine WBC 0 SEEN (0-5) /hpf Ur Squamous Epith Cells 0 SEEN (5-10) /hpf Urine Bacteria 0 SEEN (None Seen) /hpf Urine Mucus 0 SEEN (<or=2+) /hpf - Rhythm Strip Rhythm Strip: Sinus Rhythm Rate: 79 Ectopy: None - EKG Initial EKG Interpretation: Sinus Rhythm, No Acute Injury Pattern, Non-Specific ST Changes - precordial only Prior: Changed - T wave abnormalities only, otherwise unchanged - Medical Decision Making Patient's work-up shows an abnormally elevated D-dimer albeit slightly, so ultrasound of her lower extremities was obtained to rule out DVT. It was negative on both sides. With regards to the rest of her labs, liver enzymes are okay, she is not terribly anemic, renal function is good without proteinuria, and she has no significant leukocytosis. With observation and reevaluation of her right lower extremity, the erythema does seem a little more prominent and she complains of diffuse mild-moderate pain. It is asymmetric compared with the other side. I am entertaining the possibility of this being cellulitic although she has no reason to have that, unless insufficiency/poor venous circulation is responsible for her edema in the first place, which certainly is in the differential for her BLE edema. Generally, she takes methotrexate, which could be causing an immunocompromise state and opportunity for an opportunistic infection. With regards to her knee, x-ray showed degenerative changes, I discussed that with her and need for follow-up. She is also comfortable trying a course of antibiotics empirically with regards to her leg symptoms. Advise close outpatient follow-up and we discussed reasons to return. ED Disposition - Plan for ED Patient: Disposition: Home or Assisted Living Diagnosis: Cellulitis of right lower leg, Arthritis of right knee, Edema of lower extremity Instructions: ED Cellulitis, ED Peripheral Edema, Bilateral Prescriptions: Cephalexin [Keflex] 500 mg PO 4X/DAY #40 capsule Transmission Status: Pending to [facility] Referrals: Rica Padgett DO [Primary Care Provider] - 3-5 Days if not improving
[2020-12-08 14:38] LABS: Bacteria 0 SEEN /hpf (None Seen); Mucous, Urine 0 SEEN /hpf (<or=2+); Red Blood Cells-Urine 0 SEEN /hpf (0-5); Squamous Epithelial Cells - UA 0 SEEN /hpf (5-10); White Blood Cells 0 SEEN /hpf (0-5)
[2020-12-08 14:45] VITALS: BP 172/63; PULSE 83; RESP 17; O2SAT 94
[2020-12-08 15:09] LABS: Absolute Lymphocyte Count 2.41 X10^3/uL (0.83-4.51); Absolute Neutrophil Count 5.5 X10^3/uL (2.0-7.7); Basophil# 0.04 X10^3/uL; Basophil% 0.5 % (0-1); Eosinophil# 0.22 X10^3/uL; Eosinophils% 2.5 % (0-5); Hematocrit 38.4 % (37-47); Hemoglobin 11.4 g/dL (12.0-15.0); Lymphocyte # 2.41 X10^3/ul (4.0); Lymphocyte % 27.6 % (19-41); Mean Corp Hgb Conc 29.7 g/dL (32-36); Mean Corpuscular Hgb 25.9 pg (27.0-32.0); Mean Corpuscular Volume 87.1 fL (81-99); Mean Platelet Vol. 9.2 fl (6.2-12.0); Monocyte# 0.55 X10^3/uL; Monocyte% 6.3 % (0-10); NRBC Flagged by Analyzer 0 % (0-5); Neutrophil # 5.47 X10^3/uL (2.7-7.7); Neutrophil % 62.8 % (47-70); Platelet Count 249 K/mm3 (150-450); RBC Distribution Width CV 15.5 % (11.6-14.6); RBC Distribution Width SD 48.5 fl (35.1-43.9); Red Blood Count 4.41 M/mm3 (4.2-5.4); White Blood Count 8.7 K/mm3 (4.4-11.0)
--- NOTE | 2020-12-08 15:10 | RAD_ITS ---
STUDY: X-RAY CHEST REASON FOR EXAM: Female, 60 years old. Sob TECHNIQUE: Single AP portable view of the chest. COMPARISON: Comparison is made with prior study dated 07/09/2019. FINDINGS: EKG electrodes are seen. The lungs are clear and expanded. There is no demonstrated pleural abnormality. Normal size heart. Normal mediastinum and cynthia. Normal visualized pulmonary arteries. Normal visualized aortic arch and descending thoracic aorta. Normal visualized thoracic spine. Normal visualized ribs, clavicles, and shoulders. There is no demonstrated abnormality of the visualized soft tissue structures of the upper abdomen. RAD/Chest 1 View (Portable) IMPRESSION: Normal x-ray examination of the chest. Electronically Signed: Stan Corral MD at 15:52 EDT , Service support ,
[2020-12-08 15:12] LABS: Color, Urine Yellow (Yellow); Glucose, Dipstick Normal (Normal); Ketone-Dipstick Negative (Negative); Leukocyte Esterase-Dipstick Negative /ul (Negative); Nitrite-Dipstick Negative (Negative); Occult Blood-Urine Negative /ul (Negative); Protein-Dipstick Negative (Negative); Urine Bilirubin Dipstick Negative (Negative); Urine Clarity Clear (Clear); Urine Urobilinogen Normal (Normal)
[2020-12-08 15:23] LABS: ALB/GLOB Ratio 0.9 RATIO (0.9-2.4); AST(SGOT) 37 U/L (15-37); Alanine Aminotransfer ALT/SGPT 80 U/L (13-56); Albumin, Serum 3.7 g/dL (3.2-5.0); Alkaline Phosphatase 104 U/L (45-117); Anion Gap 7 (5-15); BUN 11 mg/dL (7-18); BUN/Creat Ratio 11.9 RATIO (10-20); Calcium,Total 9.4 mg/dL (8.5-10.1); Chloride 98 mmol/L (98-107); Creatinine, Serum 0.92 mg/dL (0.55-1.02); EST Glomerular Filtration Rate 65 mL/min (>60); Est Glom Filt Rate - Afr Amer 79 mL/min (>60); Estimated Creatinine Clearance 54.75 ml/min; Globulin 4.2 g/dL (2.2-4.2); Glucose 170 mg/dL (74-106); Potassium 4.2 mmol/L (3.5-5.1); Protein, Total 7.9 g/dL (6.4-8.2); Sodium Level 136 mmol/L (136-145)
[2020-12-08 16:44] LABS: D-Dimer Quantitative (DVT/PE) 0.71 FEU/ug/m (0.27-0.49)
--- NOTE | 2020-12-08 16:56 | US_ITS ---
STUDY: VENOUS DOPPLER ULTRASOUND - BILATERAL LOWER EXTREMITIES REASON FOR EXAM: Female, 60 years old. BILAT LEG PAIN-X 3 WEEKS TECHNIQUE: Ultrasound evaluation of the deep vein system to include echeverria-scale imaging and compression was performed. Echeverria-scale imaging and Doppler sonographic evaluation, including duplex spectral analysis and qualitative color flow sonography, was performed. Limited study due to open wound in the left inguinal region COMPARISON: None. FINDINGS: RIGHT LEG Common Femoral Vein: Normal compression, spontaneity and augmentation. Normal color Doppler. Common Femoral Vein/Greater Saphenous Junction: Normal compression, spontaneity and augmentation. Normal color Doppler. Deep Femoral Vein: Not evaluated Femoral Proximal: Normal compression, spontaneity and augmentation. Normal color Doppler. Femoral Middle: Normal compression, spontaneity and augmentation. Normal color Doppler. Femoral Distal: Normal compression, spontaneity and augmentation. Normal color Doppler. Popliteal Vein: Normal compression, spontaneity and augmentation. Normal color Doppler. Posterior Tibial Vein: Normal compression, spontaneity and augmentation. Normal color Doppler. Peroneal Vein: Normal compression, spontaneity and augmentation. Normal color Doppler. LEFT LEG Common Femoral Vein: Normal compression, spontaneity and augmentation. Normal color Doppler. Common Femoral Vein/Greater Saphenous Junction: Normal compression, spontaneity and augmentation. Normal color Doppler. Deep Femoral Vein: Not evaluated Femoral Proximal: Normal compression, spontaneity and augmentation. Normal color Doppler. Femoral Middle: Normal compression, spontaneity and augmentation. Normal color Doppler. Femoral Distal: Normal compression, spontaneity and augmentation. Normal color Doppler. Popliteal Vein: Normal compression, spontaneity and augmentation. Normal color Doppler. Posterior Tibial Vein: Normal compression, spontaneity and augmentation. Normal color Doppler. Peroneal Vein: Normal compression, spontaneity and augmentation. Normal color Doppler. US/Venous Duplex Imag/Sean Extrem IMPRESSION: Limited study, no demonstrated DVT Electronically Signed: Nitin Barrios MD at 18:33 EDT , Service support ,
[2020-12-08] MEDS: HYDROcodone Bitartrate/Apap 5/325 Tablet PO (17:51)
[2020-12-08] MEDS: Cephalexin 250 MG Capsule 500 MG PO (17:51)
[2020-12-08 17:55] VITALS: BP 107/95; O2SAT 98
== END 2020-12-08 17:56 | disposition home or self-care (01) ==
PROVIDERS: Emergency Provider Emergency Medicine; PCP Family Medicine
DX: L03.115 Cellulitis of right lower limb (principal); M17.11 Unilateral primary osteoarthritis, right knee; R60.0 Localized edema; R06.09 Other forms of dyspnea; E11.40 Type 2 diabetes mellitus with diabetic neuropathy, unspecified; M35.1 Other overlap syndromes; K21.9 Gastro-esophageal reflux disease without esophagitis; E66.9 Obesity, unspecified; Z79.84 Long term (current) use of oral hypoglycemic drugs; Z79.82 Long term (current) use of aspirin; Z79.899 Other long term (current) drug therapy; Z86.711 Personal history of pulmonary embolism; Z86.718 Personal history of other venous thrombosis and embolism; Z87.891 Personal history of nicotine dependence
CPT/HCPCS: 71045; 73564; 80053; 81001; 83880; 84484; 85025; 85379; 93005; 93970; 99285; A4216

== ENCOUNTER → 2020-12-15 10:18 | Outpatient (CLI) | payer MEDICARE, OTHER, SELFPAY ==
[2020-08-19 09:08] VITALS: BMI 42.1
[2020-12-08 11:52] VITALS: BMI 41.1
[2020-12-15 12:45] LABS: Absolute Lymphocyte Count 1.75 X10^3/uL (0.83-4.51); Absolute Neutrophil Count 3.1 X10^3/uL (2.0-7.7); Basophil# 0.05 X10^3/uL; Basophil% 0.9 % (0-1); Eosinophil# 0.23 X10^3/uL; Eosinophils% 4.1 % (0-5); Hematocrit 36.1 % (37-47); Hemoglobin 10.8 g/dL (12.0-15.0); Lymphocyte # 1.75 X10^3/ul (0.83-4.51); Lymphocyte % 31.1 % (19-41); Mean Corp Hgb Conc 29.9 g/dL (32-36); Mean Corpuscular Hgb 26.1 pg (27.0-32.0); Mean Corpuscular Volume 87.2 fL (81-99); Mean Platelet Vol. 9.7 fl (6.2-12.0); Monocyte# 0.45 X10^3/uL; NRBC Flagged by Analyzer 0 % (0-5); Neutrophil # 3.11 X10^3/uL (2.7-7.7); Neutrophil % 55.4 % (47-70); Platelet Count 263 K/mm3 (150-450); RBC Distribution Width CV 14.9 % (11.6-14.6); RBC Distribution Width SD 47.8 fl (35.1-43.9); Red Blood Count 4.14 M/mm3 (4.2-5.4); White Blood Count 5.6 K/mm3 (4.4-11.0)
[2020-12-15 13:15] LABS: ALB/GLOB Ratio 0.9 RATIO (0.9-2.4); AST(SGOT) 35 U/L (15-37); Alanine Aminotransfer ALT/SGPT 67 U/L (13-56); Albumin, Serum 3.5 g/dL (3.2-5.0); Alkaline Phosphatase 96 U/L (45-117); Anion Gap 9 (5-15); BUN 17 mg/dL (7-18); Calcium,Total 8.9 mg/dL (8.5-10.1); Chloride 101 mmol/L (98-107); Cholesterol 185 mg/dL (200); Creatinine, Serum 0.85 mg/dL (0.55-1.02); EST Glomerular Filtration Rate 72 mL/min (>60); Est Glom Filt Rate - Afr Amer 87 mL/min (>60); Glucose 165 mg/dL (74-106); High Density Lipoprotein 32 mg/dL; Potassium 3.8 mmol/L (3.5-5.1); Protein, Total 7.5 g/dL (6.4-8.2); Sodium Level 138 mmol/L (136-145); Triglycerides 483 mg/dL
[2020-12-15 13:25] LABS: Microalbumin,Random Urine 32.9 mg/L (NO RANGE EST.); Microalbumin:Creatinine Ratio 11.5 mg/g CRE (<30 mg/g CRE)
== END ==
PROVIDERS: PCP Family Medicine; Referring Provider Family Medicine; Visit Provider Family Medicine
DX: E11.9 Type 2 diabetes mellitus without complications (principal); E11.40 Type 2 diabetes mellitus with diabetic neuropathy, unspecified; E78.5 Hyperlipidemia, unspecified
CPT/HCPCS: 36415; 80053; 80061; 82043; 82570; 85025

== ENCOUNTER → 2021-06-18 07:15 | Outpatient (CLI) | payer MEDICARE, OTHER, SELFPAY ==
--- NOTE | 2021-06-18 07:45 | MRI_ITS ---
STUDY: MRI RIGHT KNEE REASON FOR EXAM: Chronic right knee pain. TECHNIQUE: Standardized fat and water weighted pulse sequences were obtained in all 3 orthogonal planes. COMPARISON: Radiographs 12/08/2020. FINDINGS: There is attrition of the free margin of the posterior horn of the medial meniscus (proton-density sagittal images 13-19) secondary to free edge tear/degeneration. There is mild peripheral subluxation of the medial meniscus. There is arthrosis of the medial femorotibial compartment with marginal osteophytes and chondral thinning (T2 sagittal image 8). There is slight subchondral bone edema of the medial tibial plateau. Normal medial collateral ligamentous complex (MCL). Normal distal semimembranosus, gracilis and semitendinosus tendons. There is a small complex tear of the anterior horn of the lateral meniscus (proton-density sagittal images 31, 32). There is mild arthrosis of the lateral femorotibial compartment with small marginal osteophytes and mild partial-thickness chondral loss of the lateral tibial plateau (T2 sagittal image 18). Normal lateral femoral condyle and tibial plateau. Normal proximal tibiofibular articulation. Normal lateral collateral (fibular) ligament. Normal popliteus tendon. Normal biceps femoris tendon. There is mild intrasubstance mucoid degeneration of the anterior cruciate ligament (T2 coronal images 13, 14). Normal posterior cruciate ligament (PCL). Normal congruent patellofemoral articulation. There is arthrosis of the patellofemoral compartment with marginal osteophytes and chondral thinning (T2 sagittal image 15). Normal medial and lateral patellar retinaculum. Normal visualized quadriceps tendon. Normal patellar tendon. Normal Hoffa''s fat pad. There is a moderate-sized joint effusion. There is edema in the anterior and lateral subcutis adipose space. The otherwise visualized osseous structures are unremarkable. MRI/Lower Ext Joint Only (Routine) IMPRESSION: Tear/degeneration of the medial meniscus. Small lateral meniscal tear. Tricompartmental arthrosis. Joint effusion. Electronically Signed: Rober Perry MD at 8:39 EDT Tel , Service support ,
== END ==
PROVIDERS: PCP Family Medicine; Referring Provider Physician Assistant; Visit Provider Physician Assistant
DX: M17.11 Unilateral primary osteoarthritis, right knee (principal)
CPT/HCPCS: 73721

== ENCOUNTER → 2021-07-08 | Outpatient (CLI) | payer MEDICARE, OTHER, SELFPAY ==
[2021-07-08 21:41] LABS: M R Staph aureus DNA By PCR Negative (Negative); Probe Check PASS; Specimen Processing Control PASS; Staph aureus DNA By PCR POSITIVE (Negative)
== END | disposition home or self-care (01) ==
PROVIDERS: PCP Family Medicine; Visit Provider Podiatrist
DX: L03.032 Cellulitis of left toe (principal); L97.529 Non-pressure chronic ulcer of other part of left foot with unspecified severity
CPT/HCPCS: 87070; 87075; 87077; 87186; 87205; 87640

== ENCOUNTER → 2021-08-07 12:02 | Outpatient (CLI) | payer MEDICARE, OTHER, SELFPAY ==
[2021-08-07 15:17] LABS: Hematocrit 39.6 % (37-47); Mean Corp Hgb Conc 30.3 g/dL (32-36); Mean Corpuscular Hgb 26.3 pg (27.0-32.0); Mean Corpuscular Volume 86.8 fL (81-99); Mean Platelet Vol. 9.9 fl (6.2-12.0); Platelet Count 291 K/mm3 (150-450); RBC Distribution Width CV 15.2 % (11.6-14.6); RBC Distribution Width SD 47.4 fl (35.1-43.9); Red Blood Count 4.56 M/mm3 (4.2-5.4); White Blood Count 7.1 K/mm3 (4.4-11.0)
== END ==
PROVIDERS: PCP Family Medicine; Referring Provider Internal Medicine Pulmonary Disease; Visit Provider Internal Medicine Pulmonary Disease
DX: D50.9 Iron deficiency anemia, unspecified (principal)
CPT/HCPCS: 36415; 85027

== ENCOUNTER 2021-09-25 10:11 | Day surgery (SDC) | payer MEDICARE, OTHER, SELFPAY ==
[2021-09-25 10:44] VITALS: BP 155/70; PULSE 75; RESP 16; TEMP 36.7; O2SAT 92; BMI 42.9
[2021-09-25] MEDS: Vancomycin IV 1,000 MG/200 ML BAG 200 MG IV (11:19)
[2021-09-25] MEDS: Lactated Ringers 1,000 ML 15 ML IV (11:19)
[2021-09-25 11:26] LABS: Bedside Glucose 136 mg/dL (70-110)
[2021-09-25] MEDS: [UNRECOGNIZED DRUG - MIXTURE] IV (14:06)
[2021-09-25] MEDS: Lidocaine 1% (30 ml sdv) 30 ML Vial (14:20)
[2021-09-25] MEDS: Bupivacaine 0.25% 30 ML Vial (14:20)
[2021-09-25 14:53] VITALS: BP 150/94; BP 154/89; BP 155/70; PULSE 82; PULSE 83; RESP 16; TEMP 36.9; O2SAT 85; O2SAT 92
[2021-09-25 15:08] VITALS: BP 143/87; BP 155/70; PULSE 77; RESP 16
[2021-09-25 15:15] VITALS: BP 138/77; BP 155/70; PULSE 71; RESP 16; O2SAT 96
[2021-09-25 15:30] VITALS: BP 144/78; BP 155/70; PULSE 68; RESP 16; TEMP 36.9; O2SAT 93
[2021-09-25 15:41] VITALS: BP 155/70
== END 2021-09-25 23:59 | disposition home or self-care (01) ==
LOC: SDC 10:12 → AC 10:13
PROVIDERS: PCP Family Medicine; Referring Provider Anesthesiology Pain Medicine; Visit Provider Anesthesiology Pain Medicine
PROC: (CPT 62362; principal; 2021-09-25 11:35)
DX: M96.1 Postlaminectomy syndrome, not elsewhere classified (principal); E11.9 Type 2 diabetes mellitus without complications; Z79.899 Other long term (current) drug therapy; Z79.84 Long term (current) use of oral hypoglycemic drugs; G89.4 Chronic pain syndrome
CPT/HCPCS: 62362; 00630; 82962; J7120; J2405

== ENCOUNTER 2021-11-10 12:55 | Outpatient (CLI) | payer OTHER, MEDICARE, SELFPAY ==
--- NOTE | 2021-11-10 10:13 | EKG12_ITS ---
Test Reason : PREOP Blood Pressure : / mmHG Vent. Rate : 097 BPM Atrial Rate : 097 BPM P-R Int : 134 ms QRS Dur : 084 ms QT Int : 364 ms P-R-T Axes : 059 -02 013 degrees QTc Int : 462 ms Normal sinus rhythm Nonspecific ST abnormality Abnormal ECG Confirmed by LIZETH DAVIS, MIRLANDE ([id number]), editor greeting card MAIRA JENKINS ([id number]) on 11/12/2021 10:07:35 AM Referred By: Jered Maddox Confirmed By:MIRLANDE STANLEY MD
--- NOTE | 2021-11-10 10:20 | RAD_ITS ---
INDICATION: PREOP EXAMINATION/TECHNIQUE: X-RAY - XR Chest 2 Views COMPARISON: 12/08/2020 FINDINGS: Support devices: None. No focal consolidations, effusions, or sizable pneumothorax. Heart size is stable. No acute findings in the bones or soft tissues. RAD/Chest PA and Lateral IMPRESSION: No acute findings. Stable exam since 12/08/2020. Electronically Signed: Kenny Wright, at 16:37 EDT ,
[2021-11-10 11:10] LABS: Absolute Lymphocyte Count 1.61 X10^3/uL (0.83-4.51); Absolute Neutrophil Count 3.7 X10^3/uL (2.0-7.7); Basophil# 0.04 X10^3/uL; Basophil% 0.7 % (0-1); Eosinophil# 0.19 X10^3/uL; Eosinophils% 3.1 % (0-5); Hematocrit 37.4 % (37-47); Hemoglobin 11.8 g/dL (12.0-15.0); Lymphocyte # 1.61 X10^3/ul (0.83-4.51); Lymphocyte % 26.3 % (19-41); Mean Corp Hgb Conc 31.6 g/dL (32-36); Mean Corpuscular Hgb 26.5 pg (27.0-32.0); Mean Corpuscular Volume 83.9 fL (81-99); Mean Platelet Vol. 9.2 fl (6.2-12.0); Monocyte# 0.56 X10^3/uL; Monocyte% 9.1 % (0-10); NRBC Flagged by Analyzer 0 % (0-5); Neutrophil % 60.3 % (47-70); Platelet Count 261 K/mm3 (150-450); RBC Distribution Width CV 16.8 % (11.6-14.6); RBC Distribution Width SD 50.7 fl (35.1-43.9); Red Blood Count 4.46 M/mm3 (4.2-5.4); White Blood Count 6.1 K/mm3 (4.4-11.0)
[2021-11-10 11:34] LABS: Albumin, Serum 3.4 g/dL (3.2-5.0); Anion Gap 6 (5-15); BUN 15 mg/dL (7-18); BUN/Creat Ratio 14.9 RATIO (10-20); Calcium,Total 9.1 mg/dL (8.5-10.1); Chloride 102 mmol/L (98-107); Creatinine, Serum 1.01 mg/dL (0.55-1.02); EST Glomerular Filtration Rate 59 mL/min (>60); Est Glom Filt Rate - Afr Amer 71 mL/min (>60); Glucose 281 mg/dL (74-106); Potassium 4.1 mmol/L (3.5-5.1); Sodium Level 138 mmol/L (136-145)
[2021-11-10 12:15] LABS: Magnesium 1.7 mg/dL (1.6-2.6); Thyroid Stim Hormone (TSH) 3.14 uIU/mL (0.358-3.74)
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
== END 2021-11-10 23:59 | disposition home or self-care (01) ==
LOC: PAT 12-08 12:56
PROVIDERS: Anesthesiology; PCP Family Medicine; Referring Provider Specialist; Visit Provider Specialist
DX: Z01.810 Encounter for preprocedural cardiovascular examination (principal); E11.9 Type 2 diabetes mellitus without complications; M17.11 Unilateral primary osteoarthritis, right knee; Z53.9 Procedure and treatment not carried out, unspecified reason; I10 Essential (primary) hypertension; E78.5 Hyperlipidemia, unspecified; M21.161 Varus deformity, not elsewhere classified, right knee; M25.361 Other instability, right knee; M79.7 Fibromyalgia; Z79.84 Long term (current) use of oral hypoglycemic drugs; Z87.891 Personal history of nicotine dependence; Z96.652 Presence of left artificial knee joint
CPT/HCPCS: 36415; 71046; 80048; 82040; 83036; 83735; 84443; 85025; 87081; 93005

== ENCOUNTER 2021-11-11 07:45 | Outpatient (CLI) | payer MEDICARE, OTHER, SELFPAY ==
--- NOTE | 2021-11-11 08:00 | CT_ITS ---
STUDY: RIGHT lower extremity REASON FOR EXAM: Female, 61 years old. VERUS DEFORMITY RADIATION DOSAGE (If Supplied By Facility): CTDIvol = ( 20.10 ) mGy, DLP = ( 1171.51 ) mGycm. Individualized dose optimization techniques were used for this CT.? TECHNIQUE: Continuous axial CT images from the right iliac bone through the right proximal tarsal bones was obtained. Coronal and sagittal reformatted images were also obtained. COMPARISON: Right knee radiograph from 12/08/2020. MRI from 06/18/2021. FINDINGS: No acute fracture or dislocation. Stable mild lateral deviation of the patella. Redemonstration of a moderate joint effusion. The joint spaces are otherwise intact. Mild to moderate degenerative changes in the right femoral acetabular joint. Femoral head is well-seated within the right acetabulum. Moderate tricompartment osteoarthritis in the knee. Mild enthesopathic changes at the Achilles insertion site. No destructive osseous lesions. No radiopaque foreign bodies. CT/Extremity Lower without Contra IMPRESSION: 1. Redemonstration of mild lateral deviation of the patella, stable from prior MRI 06/18/2021, with similar appearing moderate joint effusion. 2. No acute fracture or dislocation. 3. Osteoarthritis. Electronically Signed: Kenny Wright, at 12:47 EDT ,
== END 2021-11-11 23:59 | disposition home or self-care (01) ==
LOC: CT 07:46
PROVIDERS: PCP Family Medicine; Referring Provider Specialist; Visit Provider Specialist
DX: M21.161 Varus deformity, not elsewhere classified, right knee (principal); M25.569 Pain in unspecified knee; G89.29 Other chronic pain
CPT/HCPCS: 73700

== ENCOUNTER 2021-11-12 15:13 | Outpatient (CLI) | payer MEDICARE, OTHER, SELFPAY ==
--- NOTE | 2021-11-12 15:45 | CT_ITS ---
STUDY: CTA CHEST REASON FOR EXAM: Female, 61 years old. Atypical chest pain, diaphoresis RADIATION DOSAGE (If Supplied By Facility): CTDIvol = ( 14.45 ) mGy, DLP = ( 1002.33 ) mGycm TECHNIQUE: The examination was performed with the intravenous administration of IV 100mL Isovue-300. Post-processing of the angiographic images was performed, with multiplanar reformation and 3D reconstruction. Individualized dose optimization techniques were used for this CT. COMPARISON: None. FINDINGS: Normal enhancement of the main pulmonary artery and right and left pulmonary arteries. Normal enhancement of the bilateral peripheral pulmonary arteries. There is no demonstrated pulmonary embolism. Normal thoracic aorta and visualized great vessels. There is no demonstrated aortic dissection. Normal heart and pericardium. There are subcentimeter mediastinal and perihilar lymph nodes. Normal visualized trachea and bronchi. The lungs are well expanded. Subtle interstitial edema in both lung morocho without organized infiltrate or effusion. Normal pleura. Normal chest wall structures. There are degenerative changes of thoracic spine. Medical history the upper abdomen show fatty infiltration of the liver. CT/CTA Chest W/WO Contrast IMPRESSION: No demonstrated PE, or thoracic aortic aneurysm or dissection Subtle interstitial edema in both lung morocho suggest mild pulmonary vascular congestion. No organized infiltrate or effusion. Degenerative bony changes Fatty liver Electronically Signed: Nitin Barrios MD at 17:02 EDT ,
== END 2021-11-12 23:59 | disposition home or self-care (01) ==
PROVIDERS: PCP Family Medicine; Visit Provider Family Medicine
DX: R09.02 Hypoxemia (principal); R06.00 Dyspnea, unspecified; R53.83 Other fatigue
CPT/HCPCS: 71275; 87086; 87088; Q9967

== ENCOUNTER 2022-01-25 12:55 | Emergency (ER) | payer MEDICARE, OTHER, SELFPAY ==
[2022-01-25 12:56] VITALS: BP 186/84; PULSE 107; RESP 18; TEMP 36.8; O2SAT 94; BMI 42.9
--- NOTE | 2022-01-25 13:23 | RAD_ITS ---
STUDY: X-RAY CHEST REASON FOR EXAM: Female, 61 years old. sob TECHNIQUE: Single AP portable view of the chest. COMPARISON: 11/10/2021 FINDINGS: The lungs are clear and expanded. There is no demonstrated pleural abnormality. Normal size heart. Normal mediastinum and cynthia. Normal visualized pulmonary arteries. Normal visualized aortic arch and descending thoracic aorta. Normal visualized thoracic spine. Normal visualized ribs, clavicles, and shoulders. There is no demonstrated abnormality of the visualized soft tissue structures of the upper abdomen. RAD/Chest 1 View (Portable) IMPRESSION: Normal x-ray examination of the chest. Electronically Signed: Dickson Melendez MD at 14:07 EDT ,
--- NOTE | 2022-01-25 13:24 | EKG12_ITS ---
Test Reason : Blood Pressure : / mmHG Vent. Rate : 090 BPM Atrial Rate : 090 BPM P-R Int : 132 ms QRS Dur : 082 ms QT Int : 380 ms P-R-T Axes : 049 000 021 degrees QTc Int : 464 ms Normal sinus rhythm Normal ECG Confirmed by VLAD QUINONEZ MD ([id number]), medical transcription editor BENJIE FREIRE ([id number]) on 01/26/2022 1:30:53 PM Referred By: ROGE Confirmed By:VLAD QUINONEZ MD
--- NOTE | 2022-01-25 13:25 | EDS_ITS ---
HPI History of Present Illness Chief Complaint: Shortness of Breath Informant: patient Onset/Context/Timing Onset: Days Context: Gradual Onset Current Severity: Mild Maximum Severity: Moderate Narrative Narrative: Patient presents with shortness of breath, cough, congestion that started 3 days ago. Patient has had recent travel out of state for graduation parties. She became sick while in [place] on Tuesday. She states she started with head congestion that now feels like it is settled into her chest. She has had subjective fever at home. She states that her home pulse ox meter was reading 83% this morning. [facility] Medical History Ambulates with cane Anxiety Arthritis ASV (adaptive servo-ventilation) use counseling Back pain Bone spur calcium calcifications Depression Diabetes Dietary restriction Difficulty balancing DVT (deep venous thrombosis) Fatigue Fibromyalgia Former smoker Gait instability Gastric reflux High cholesterol History of diverticulitis History of edema History of pain when walking History of stress test Hypertension Implantable intrathecal infusion pump present Insulin dependent diabetes mellitus Leg cramps Limb weakness Migraine headache Mixed connective tissue disease Neck pain Normal stress echocardiogram On home oxygen therapy Osteoarthritis PTSD (post-traumatic stress disorder) Shortness of breath on exertion Shoulder pain Syncope Thyroid disease Wears glasses Home Medications hydroxyzine pamoate 100 mg PO QHS 08/30/13 [History Last Taken 07/31/15] lorazepam 1 mg PO TID 08/30/13 [History Last Taken 05/22/19 09:45] omeprazole 40 mg PO DAILY 08/30/13 [History Last Taken 09/25/21 08:30] tizanidine 4 mg PO DAILY PRN 08/30/13 [History Last Taken 07/31/15] trazodone 100 mg PO QHS 08/30/13 [History Last Taken 07/31/15] lisinopril-hydrochlorothiazide 1 tab PO DAILY 12/06/14 [History Last Taken 05/22/19 09:45] levothyroxine 50 mcg PO DAILY 10/21/17 [History Last Taken Unknown] simvastatin 20 mg PO DAILY 10/21/17 [History Last Taken Unknown] metformin 1,000 mg tablet,extended release 24hr 500 mg PO BID 10/30/18 [History Last Taken 05/22/19 09:45] ascorbic acid (vitamin C) 500 mg PO DAILY@0800 05/18/19 [History Last Taken Unknown] atenolol 25 mg PO DAILY 05/18/19 [History Last Taken 09/25/21 08:30] citalopram [Celexa] 10 mg PO QHS 12/15/19 [History Last Taken Unknown] hydrocodone-acetaminophen 1 ea PO BID PRN 12/15/19 [History Last Taken Unknown] folic acid 0.8 mg capsule 0.8 mg PO DAILY PRN 08/19/20 [History Last Taken Unknown] methotrexate sodium 2.5 mg tablet 20 mg PO FR tab 08/19/20 [History Last Taken Unknown] potassium chloride 8 mEq capsule,extended release 20 meq PO BID PRN 08/19/20 [History Last Taken Unknown] leucovorin calcium 5 mg PO FR 12/08/20 [History Last Taken Unknown] calcium carbonate-vitamin D3 [Calcium 500 + D (D3)] 1 tab PO DAILY 09/22/21 [History Last Taken Unknown] diclofenac sodium [Voltaren Arthritis Pain] 1 ea TOPICAL PRN PRN 09/22/21 [History Last Taken Unknown] furosemide 40 mg PO BID PRN 09/22/21 [History Last Taken Unknown] hydromorphone-bupiv (PF)-NaCl 0 ml CONTINUOUS EPIDURAL DAILY 09/22/21 [History Last Taken Unknown] insulin glargine [Lantus Solostar U-100 Insulin] 20 unit SUBCUT QPM 09/22/21 [History Last Taken Unknown] insulin lispro [Humalog Pen] 0 unit SUBCUT TID 09/22/21 [History Last Taken Unknown] dexamethasone [Decadron] 6 mg PO DAILY #5 tab 01/25/22 [Rx Last Taken Unknown] nirmatrelvir-ritonavir [Paxlovid (EUA)] See Rx Instructions .ROUTE .COMPLEX #6 tab 01/25/22 [Rx Last Taken Unknown] Allergy/AdvReac Type Severity Reaction Status Date / Time niacin Allergy Itching Verified 01/25/22 12:59 cephalexin [From Keflex] AdvReac Other Verified 01/25/22 12:59 Family History Sister Breast cancer Diabetes Kidney disease Other Arthritis Heart disease Surgical History History of back surgery History of carpal tunnel release Hx of arthroscopic knee surgery Hx of hysterectomy hx of plantar fasciotomy Hx of surgical procedure Hx of total knee replacement Social History Smoking Status: Former smoker alcohol intake: never substance use type: does not use caffeine: No what type of physical activity do you participate in: none seatbelt use: always do you feel safe at home: Yes additional social history: [id number] at [employer] Patient is disabled ROS ROS ED Constitutional Constitutional ED: Reports fever(s) and subjective Eyes Eyes: Denies blurry vision or change in vision ENT ENT ED: Reports other Details: Congestion Cardiovascular Cardiovascular: Denies chest pain or palpitations Respiratory/Chest Respiratory/Chest: Reports cough and dyspnea; Denies sputum Gastrointestinal Gastrointestinal: Denies abdominal pain, diarrhea or vomiting Musculoskeletal Musculoskeletal: Reports myalgias Integumentary Denies rash Neurologic Neurologic: Denies headache(s) or weakness Allergic/Immunologic Allergic/Immunologic ED: Denies urticaria EXAM Physical Exam Const Vital Signs: 01/25/22 12:56 01/25/22 13:27 01/25/22 14:06 Temperature 98.2 F Temperature Source Temporal Pulse Rate 107 H Respiratory Rate 18 Respiratory Effort Short of Breath Blood Pressure 186/84 H Blood Pressure Mean 118 Pulse Ox 94 95 Oxygen Delivery Method Room Air Nasal Cannula Oxygen Flow Rate (L/min) 4 01/25/22 14:10 01/25/22 15:13 Temperature Temperature Source Pulse Rate 82 78 Respiratory Rate 16 18 Respiratory Effort Blood Pressure 136/69 H 143/89 H Blood Pressure Mean 91 107 Pulse Ox 95 97 Oxygen Delivery Method Nasal Cannula Nasal Cannula Oxygen Flow Rate (L/min) 4 4 Positive well nourished and well developed General Appearance ED: well developed HEENT Reports moist mucous membranes Eyes PERRL and EOMs intact bilaterally Neck supple Chest Wall inspection of chest normal Resp normal respiratory effort and clear to auscultation bilaterally Cardio regular rate and regular rhythm GI non-tender Palpation: soft Extremity normal to inspection Neuro oriented x3 Sensorium / Orientation: alert Psych mental status grossly normal Skin no rashes or lesions noted MDM MDM MDM Narrative Medical decision making narrative: EKG, chest x-ray, lab work obtained. Patient's O2 sat did drop to 88 while resting in bed and was placed on nasal cannula. She did advise the nurse that she is on home O2 4 L at night. Lab Data Attestation: I reviewed the patient's lab results. Labs: Laboratory Results - last 24 hr 01/25/22 01/25/22 01/25/22 13:33 13:33 13:33 WBC 6.1 RBC 4.60 Hgb 12.3 Hct 40.4 MCV 87.8 MCH 26.7 L MCHC 30.4 L RDW Std Deviation 50.0 H RDW Coeff of Mouna 15.7 H Plt Count 181 MPV 9.2 Immature Gran % (Auto) 0.300 Neut % (Auto) 68.9 Lymph % (Auto) 17.3 L [place] % (Auto) 9.9 Eos % (Auto) 2.9 Baso % (Auto) 0.7 Absolute Neuts (auto) 4.2 Absolute Lymphs (auto) 1.06 Nucleated RBC % 0 D-Dimer Quant (PE/DVT) 0.85 H* Sodium 139 Potassium 4.1 Chloride 104 Carbon Dioxide 31.0 Anion Gap 4 L BUN 9 Creatinine 0.81 Estim Creat Clear Calc 61.39 Est GFR (MDRD) Af Amer 91 Est GFR (MDRD) Non-Af 75 BUN/Creatinine Ratio 11.1 Glucose 166 H Calcium 8.5 Troponin I High Sens < 3 L Rapid COVID: Positive Influenza: Negative Radiography Chest X-Ray - ED: 1 View, Read by ED Physician, Normal, Heart, Lungs and Mediastinum Diagnostic Testing: Clinical Impression(s) from Imaging Studies Chest X-Ray 01/25/22 13:23 IMPRESSION: Normal x-ray examination of the chest. Electronically Signed: Dickson Melendez MD at 14:07 EDT Reading Location ID and State: [id number] / [employer] Tel , Service support , Chest CTA 01/25/22 14:08 IMPRESSION: Normal CTA chest examination, without a demonstrated pulmonary embolism or arterial dissection. Electronically Signed: Dickson Melendez MD at 15:05 EDT Reading Location ID and State: [id number] / [employer] Tel , Service support , EKG Initial EKG: Attestation: I personally reviewed and interpreted this EKG as follows: Interpretation: Sinus Rhythm (Sinus at 90 with no acute ischemia.) Treatment and Re-Evaluation Narrative: Repeat evaluation patient resting comfortably. O2 sat is in the mid 90s on 2 L. Test results discussed with her and her . Lab work is unremarkable other than elevated D-dimer. CTA of the chest reveals no evidence of PE. Chest x-ray per my interpretation reveals no infiltrate. COVID test is positive. Patient has home O2 as well as a pulse ox meter. I do feel she can be treated at home. She will be written for Decadron. We discussed Paxlovid as a treatment option as patient is high risk and on methotrexate. She is interest ed in this treatment. I will send this prescription to our hospital pharmacy. Return instructions are provided. Discharge Plan Triage Chief Complaint: Shortness of Breath ED Provider: Fany Rivera Dx/Rx/DC Orders Clinical Impression: COVID-19 Instructions: Coronavirus Disease 2019 (COVID-19): Overview, Coronavirus Disease 2019 (COVID-19): Caring for Yourself or Others Prescriptions: New dexamethasone [Decadron] 6 mg tablet 6 mg PO DAILY Qty: 5 RF: 0 Paxlovid (EUA) 150 mg x 2- 100 mg tablet See Rx Instructions .ROUTE .COMPLEX Qty: 6 RF: 0 No Action metformin 1,000 mg tablet extended release 24hr 500 mg PO BID RF: 0 methotrexate sodium 2.5 mg tablet 20 mg PO FR RF: 0 potassium chloride 8 mEq capsule, extended release 20 meq PO BID PRN (Reason: WITH WATER PILL) RF: 0 folic acid 0.8 mg capsule 0.8 mg PO DAILY PRN (Reason: WITH WATER PILL) RF: 0 tizanidine 4 MG tablet 4 mg PO DAILY PRN (Reason: Pain) RF: 0 hydroxyzine pamoate 50 MG capsule 100 mg PO QHS RF: 0 omeprazole 40 MG capsule 40 mg PO DAILY RF: 0 trazodone 100 MG tablet 100 mg PO QHS RF: 0 lorazepam 1 MG tablet 1 mg PO TID RF: 0 lisinopril-hydrochlorothiazide 1 TABLET tablet 1 tab PO DAILY RF: 0 levothyroxine 50 MCG tablet 50 mcg PO DAILY RF: 0 simvastatin 20 MG tablet 20 mg PO DAILY RF: 0 atenolol 25 MG tablet 25 mg PO DAILY RF: 0 ascorbic acid (vitamin C) 500 MG tablet 500 mg PO DAILY@0800 RF: 0 hydrocodone-acetaminophen 1 EACH tablet 1 ea PO BID PRN (Reason: Pain Score 1-5) RF: 0 citalopram [Celexa] 10 mg tablet 10 mg PO QHS RF: 0 leucovorin calcium 10 MG tablet 5 mg PO FR RF: 0 furosemide 40 mg Tablet 40 mg PO BID PRN (Reason: Edema) RF: 0 insulin lispro [Humalog Pen] 100 unit/mL Insulin Pen 0 unit SUBCUT TID RF: 0 calcium carbonate-vitamin D3 [Calcium 500 + D (D3)] 500 mg-3.125 mcg (125 unit) Tablet 1 tab PO DAILY RF: 0 Lantus Solostar U-100 Insulin 100 unit/mL (3 mL) Insulin Pen 20 unit SUBCUT QPM RF: 0 hydromorphone-bupiv (PF)-NaCl 20 mcg/mL- 0.1 % Prefilled Pump [place] 0 ml continuous epidural DAILY RF: 0 diclofenac sodium [Voltaren Arthritis Pain] 1 % Gel 1 ea TOPICAL PRN PRN (Reason: Pain) RF: 0 Primary Care Provider: Rica Padgett Referrals: Rica Padgett DO [Primary Care Provider] - 1-2 Weeks Activity Restrictions/Additional Instructions: As discussed, please stop your simvastatin while you are on the Paxlovid. Please quarantine for total of 10 days from symptom onset. Disposition Disposition: Home, Self Care
[2022-01-25 13:27] VITALS: O2SAT 88; O2SAT 95
[2022-01-25 13:42] LABS: Absolute Lymphocyte Count 1.06 X10^3/uL (0.83-4.51); Absolute Neutrophil Count 4.2 X10^3/uL (2.0-7.7); Basophil# 0.04 X10^3/uL; Basophil% 0.7 % (0-1); Eosinophil# 0.18 X10^3/uL; Eosinophils% 2.9 % (0-5); Hematocrit 40.4 % (37-47); Hemoglobin 12.3 g/dL (12.0-15.0); Lymphocyte # 1.06 X10^3/ul (0.83-4.51); Lymphocyte % 17.3 % (19-41); Mean Corp Hgb Conc 30.4 g/dL (32-36); Mean Corpuscular Hgb 26.7 pg (27.0-32.0); Mean Corpuscular Volume 87.8 fL (81-99); Mean Platelet Vol. 9.2 fl (6.2-12.0); Monocyte# 0.61 X10^3/uL; Monocyte% 9.9 % (0-10); NRBC Flagged by Analyzer 0 % (0-5); Neutrophil # 4.23 X10^3/uL (2.7-7.7); Neutrophil % 68.9 % (47-70); Platelet Count 181 K/mm3 (150-450); RBC Distribution Width CV 15.7 % (11.6-14.6); White Blood Count 6.1 K/mm3 (4.4-11.0)
[2022-01-25 13:57] LABS: D-Dimer Quantitative (DVT/PE) 0.85 FEU/ug/m (0.27-0.49)
[2022-01-25 13:59] LABS: Anion Gap 4 (5-15); BUN 9 mg/dL (7-18); BUN/Creat Ratio 11.1 RATIO (10-20); Calcium,Total 8.5 mg/dL (8.5-10.1); Chloride 104 mmol/L (98-107); Creatinine, Serum 0.81 mg/dL (0.55-1.02); EST Glomerular Filtration Rate 75 mL/min (>60); Est Glom Filt Rate - Afr Amer 91 mL/min (>60); Estimated Creatinine Clearance 61.39 ml/min; Glucose 166 mg/dL (74-106); Potassium 4.1 mmol/L (3.5-5.1); Sodium Level 139 mmol/L (136-145); Troponin-I HS < 3 pg/mL (3.0-54.0)
--- NOTE | 2022-01-25 14:08 | CT_ITS ---
STUDY: CTA CHEST REASON FOR EXAM: Female, 61 years old. PE RADIATION DOSAGE (If Supplied By Facility): CTDIvol = ( 12.66 ) mGy, DLP = ( 495.43 ) mGycm TECHNIQUE: The examination was performed with the intravenous administration of IV 100mL Isovue-370. Post-processing of the angiographic images was performed, with multiplanar reformation and 3D reconstruction. Individualized dose optimization techniques were used for this CT. COMPARISON: 11/12/2021 FINDINGS: Normal enhancement of the main pulmonary artery and right and left pulmonary arteries. Normal enhancement of the bilateral peripheral pulmonary arteries. There is no demonstrated pulmonary embolism. Normal thoracic aorta and visualized great vessels. There is no demonstrated aortic dissection. Normal heart and pericardium. Normal mediastinum. Normal hilar regions. Normal visualized trachea and bronchi. The lungs are well expanded. Normal pulmonary parenchyma. Normal pleura. Normal chest wall structures. Normal osseous structures. Normal visualized upper abdomen. CT/CTA Chest W/WO Contrast IMPRESSION: Normal CTA chest examination, without a demonstrated pulmonary embolism or arterial dissection. Electronically Signed: Dickson Melendez MD at 15:05 EDT ,
[2022-01-25 14:10] VITALS: BP 136/69; PULSE 82; RESP 16; O2SAT 95
[2022-01-25 15:13] VITALS: BP 143/89; PULSE 78; RESP 18; O2SAT 97
[2022-01-25] MEDS: dexAMETHasone 4 MG Tablet 6 MG PO (16:22)
== END 2022-01-25 16:31 | disposition home or self-care (01) ==
PROVIDERS: Emergency Provider Emergency Medicine; PCP Family Medicine; Visit Provider Emergency Medicine
DX: U07.1 COVID-19 (principal); Z87.891 Personal history of nicotine dependence; Z99.81 Dependence on supplemental oxygen
CPT/HCPCS: 71045; 71275; 80048; 84484; 85025; 85379; 87428; 93005; 99285; J7040; Q9967

== ENCOUNTER 2022-01-30 23:10 | Emergency (ER) | payer MEDICARE, OTHER, SELFPAY ==
[2022-01-30 23:11] VITALS: BP 185/72; PULSE 61; RESP 15; TEMP 36.6; O2SAT 95; BMI 42.0
[2022-01-30 23:31] LABS: Bedside Glucose > 500 mg/dL (74-106)
--- NOTE | 2022-01-30 23:48 | EDS_ITS ---
HPI History of Present Illness Chief Complaint: Hyperglycemia Informant: patient Onset/Context/Timing Onset: Days (5) Context: Gradual Onset Timing: Continuous Quality: Antsy Location: Generalized Worsened by: Nothing Relieved by: Nothing Narrative Narrative: Patient presents with hyperglycemia and has been getting progressively worse over the last 5 days. Patient recently tested positive for COVID-19 and was started on steroids. Patient states her sugars have been gradually getting worse. Patient states that tonight it was over 500. Patient admits to some polyuria and polydipsia. Patient states she feels antsy all over. Patient denies any fevers or chills. Patient does admit to some blurred vision. [facility] Medical History Ambulates with cane Anxiety Arthritis ASV (adaptive servo-ventilation) use counseling Back pain Bone spur calcium calcifications Depression Diabetes Dietary restriction Difficulty balancing DVT (deep venous thrombosis) Fatigue Fibromyalgia Former smoker Gait instability Gastric reflux High cholesterol History of diverticulitis History of edema History of pain when walking History of stress test Hypertension Implantable intrathecal infusion pump present Insulin dependent diabetes mellitus Leg cramps Limb weakness Migraine headache Mixed connective tissue disease Neck pain Normal stress echocardiogram On home oxygen therapy Osteoarthritis PTSD (post-traumatic stress disorder) Shortness of breath on exertion Shoulder pain Syncope Thyroid disease Wears glasses Home Medications hydroxyzine pamoate 100 mg PO QHS 08/30/13 [History Last Taken 07/31/15] lorazepam 1 mg PO TID 08/30/13 [History Last Taken 05/22/19 09:45] omeprazole 40 mg PO DAILY 08/30/13 [History Last Taken 09/25/21 08:30] tizanidine 4 mg PO DAILY PRN 08/30/13 [History Last Taken 07/31/15] trazodone 100 mg PO QHS 08/30/13 [History Last Taken 07/31/15] lisinopril-hydrochlorothiazide 1 tab PO DAILY 12/06/14 [History Last Taken 05/22/19 09:45] levothyroxine 50 mcg PO DAILY 10/21/17 [History Last Taken Unknown] simvastatin 20 mg PO DAILY 10/21/17 [History Last Taken Unknown] metformin 1,000 mg tablet,extended release 24hr 500 mg PO BID 10/30/18 [History Last Taken 05/22/19 09:45] ascorbic acid (vitamin C) 500 mg PO DAILY@0800 05/18/19 [History Last Taken Unknown] atenolol 25 mg PO DAILY 05/18/19 [History Last Taken 09/25/21 08:30] citalopram [Celexa] 10 mg PO QHS 12/15/19 [History Last Taken Unknown] hydrocodone-acetaminophen 1 ea PO BID PRN 12/15/19 [History Last Taken Unknown] folic acid 0.8 mg capsule 0.8 mg PO DAILY PRN 08/19/20 [History Last Taken Unknown] methotrexate sodium 2.5 mg tablet 20 mg PO FR tab 08/19/20 [History Last Taken Unknown] potassium chloride 8 mEq capsule,extended release 20 meq PO BID PRN 08/19/20 [History Last Taken Unknown] leucovorin calcium 5 mg PO FR 12/08/20 [History Last Taken Unknown] calcium carbonate-vitamin D3 [Calcium 500 + D (D3)] 1 tab PO DAILY 09/22/21 [History Last Taken Unknown] diclofenac sodium [Voltaren Arthritis Pain] 1 ea TOPICAL PRN PRN 09/22/21 [History Last Taken Unknown] furosemide 40 mg PO BID PRN 09/22/21 [History Last Taken Unknown] hydromorphone-bupiv (PF)-NaCl 0 ml CONTINUOUS EPIDURAL DAILY 09/22/21 [History Last Taken Unknown] insulin glargine [Lantus Solostar U-100 Insulin] 20 unit SUBCUT QPM 09/22/21 [History Last Taken Unknown] insulin lispro [Humalog Pen] 0 unit SUBCUT TID 09/22/21 [History Last Taken Unknown] dexamethasone [Decadron] 6 mg PO DAILY #5 tab 01/25/22 [Rx Last Taken Unknown] nirmatrelvir-ritonavir [Paxlovid (EUA)] See Rx Instructions .ROUTE .COMPLEX #6 tab 01/25/22 [Rx Last Taken Unknown] Allergy/AdvReac Type Severity Reaction Status Date / Time niacin Allergy Itching Verified 01/30/22 23:17 cephalexin [From Keflex] AdvReac Other Verified 01/30/22 23:17 Family History Sister Breast cancer Diabetes Kidney disease Other Arthritis Heart disease Surgical History History of back surgery History of carpal tunnel release Hx of arthroscopic knee surgery Hx of hysterectomy hx of plantar fasciotomy Hx of surgical procedure Hx of total knee replacement Social History Smoking Status: Former smoker alcohol intake: never substance use type: does not use caffeine: No what type of physical activity do you participate in: none seatbelt use: always do you feel safe at home: Yes additional social history: [id number] at [employer] Patient is disabled ROS ROS ED Constitutional Constitutional ED: Denies chills or fever(s) Eyes Eyes: Reports blurry vision; Denies change in vision ENT ENT ED: Reports rhinorrhea and sore throat Cardiovascular Cardiovascular: Reports chest pain; Denies palpitations Respiratory/Chest Respiratory/Chest: Denies cough or dyspnea Gastrointestinal Gastrointestinal: Denies nausea or vomiting Genitourinary Genitourinary ED: Reports urinary frequency; Denies dysuria or hematuria Musculoskeletal Musculoskeletal: Denies back pain or neck pain Integumentary Denies abscess or rash Neurologic Neurologic: Reports headache(s); Denies weakness Endocrine Endocrinology: Reports polydipsia and polyuria Allergic/Immunologic Allergic/Immunologic ED: Denies mouth swelling or urticaria EXAM Physical Exam Const Vital Signs: 01/30/22 23:11 01/30/22 23:58 01/31/22 00:46 Temperature 97.9 F Temperature Source Temporal Pulse Rate 61 52 L Respiratory Rate 15 14 Respiratory Effort Normal Respiratory Pattern Normal Blood Pressure 185/72 H 150/70 H Blood Pressure Mean 109 96 Pulse Ox 95 95 Oxygen Delivery Method Room Air Room Air Positive well nourished, well developed and obese General Appearance ED: well developed and NAD Nutritional Appearance: obese HEENT Reports moist mucous membranes Neck supple and no JVD Resp normal respiratory effort and clear to auscultation bilaterally Cardio regular rate, regular rhythm and no murmurs GI normal to inspection, nondistended, normoactive bowel sounds and non-tender Palpation: soft Extremity normal to inspection General Extremety ED: Negative for edema or tenderness General Extremity: Negative for edema Neuro oriented x3, CN's II-XII intact bilaterally and no sensory deficits noted Sensorium / Orientation: alert Motor Exam: strength 5/5 throughout Psych mental status grossly normal Skin no rashes or lesions noted MDM MDM MDM Narrative Medical decision making narrative: Patient was given IV fluids. Patient was given a dose of Humalog here. Patient was allowed to take her home Lantus. CBC was within normal limits. Comprehensive metabolic profile showed elevated glucose of 545. Anion gap was normal however. CO2 was normal. Serum acetone was negative. Urinalysis does not show any evidence of urinary tract infection or hematuria. There is some glucosuria noted. Repeat BGT was 399. Patient was instructed to continue her insulin as prescribed. Patient was instructed to continue to monitor her blood sugars and use her sliding scale as prescribed. Patient was instructed to follow-up with her primary care physician in 3 to 5 days. Patient understood and was agreeable with the plan. All questions were answered. Lab Data Attestation: I reviewed the patient's lab results. Labs: Laboratory Results - last 24 hr 01/30/22 01/31/22 01/31/22 23:24 00:00 00:00 WBC 8.9 RBC 4.98 Hgb 13.5 Hct 42.7 MCV 85.7 MCH 27.1 MCHC 31.6 L RDW Std Deviation 46.8 H RDW Coeff of Mouna 14.9 H Plt Count 317 MPV 9.6 Immature Gran % (Auto) 4.800 H Neut % (Auto) 78.6 H Lymph % (Auto) 9.8 L [place] % (Auto) 6.4 Eos % (Auto) 0.0 Baso % (Auto) 0.4 Absolute Neuts (auto) 7.0 Absolute Lymphs (auto) 0.87 Nucleated RBC % 0 Sodium 135 L Potassium 4.6 Chloride 103 Carbon Dioxide 26.0 Anion Gap 6 BUN 30 H Creatinine 1.25 H Estim Creat Clear Calc 39.78 Est GFR (MDRD) Af Amer 56 L Est GFR (MDRD) Non-Af 46 L BUN/Creatinine Ratio 24.0 H Glucose 545 H* Calcium 8.7 Total Bilirubin 0.30 AST 20 ALT 44 Alkaline Phosphatase 89 Total Protein 7.4 Albumin 3.4 Globulin 4.0 Albumin/Globulin Ratio 0.8 L Urine Color Urine Clarity Urine pH Ur Specific [place] Urine Protein Urine Glucose (UA) Urine Ketones Urine Occult Blood Urine Nitrite Urine Bilirubin Urine Urobilinogen Ur Leukocyte Esterase Urine RBC Urine WBC Ur Squamous Epith Cells Urine Bacteria Urine Mucus Acetone Level POC Glucose > 500 H* 01/31/22 01/31/22 01/31/22 00:00 00:02 01:51 WBC RBC Hgb Hct MCV MCH MCHC RDW Std Deviation RDW Coeff of Mouna Plt Count MPV Immature Gran % (Auto) Neut % (Auto) Lymph % (Auto) [place] % (Auto) Eos % (Auto) Baso % (Auto) Absolute Neuts (auto) Absolute Lymphs (auto) Nucleated RBC % Sodium Potassium Chloride Carbon Dioxide Anion Gap BUN Creatinine Estim Creat Clear Calc Est GFR (MDRD) Af Amer Est GFR (MDRD) Non-Af BUN/Creatinine Ratio Glucose Calcium Total Bilirubin AST ALT Alkaline Phosphatase Total Protein Albumin Globulin Albumin/Globulin Ratio Urine Color Straw Urine Clarity Clear Urine pH 6.0 Ur Specific [place] 1.015 Urine Protein Negative Urine Glucose (UA) 1000 H Urine Ketones Negative Urine Occult Blood Negative Urine Nitrite Negative Urine Bilirubin Negative Urine Urobilinogen Normal Ur Leukocyte Esterase Negative Urine RBC 0 SEEN Urine WBC 0 SEEN Ur Squamous Epith Cells 0 SEEN Urine Bacteria 0 SEEN Urine Mucus 0 SEEN Acetone Level NEGATIVE POC Glucose 399 H ABG Data ABG results: ABG 01/31/22 00:19 Specimen Type REJI VBG pH 7.36 VBG pO2 42 H VBG HCO3 25 VBG Total CO2 26 VBG O2 Sat (Calc) 76 H VBG Base Excess -1 POC Mix VBG pCO2 Pt Tmp 43.6 Discharge Plan Triage Chief Complaint: Hyperglycemia ED Provider: Tre Flores Dx/Rx/DC Orders Clinical Impression: Hyperglycemia, COVID-19 Instructions: ED Diabetic Hyperglycemia Prescriptions: No Action metformin 1,000 mg tablet extended release 24hr 500 mg PO BID RF: 0 methotrexate sodium 2.5 mg tablet 20 mg PO FR RF: 0 potassium chloride 8 mEq capsule, extended release 20 meq PO BID PRN (Reason: WITH WATER PILL) RF: 0 folic acid 0.8 mg capsule 0.8 mg PO DAILY PRN (Reason: WITH WATER PILL) RF: 0 tizanidine 4 MG tablet 4 mg PO DAILY PRN (Reason: Pain) RF: 0 hydroxyzine pamoate 50 MG capsule 100 mg PO QHS RF: 0 omeprazole 40 MG capsule 40 mg PO DAILY RF: 0 trazodone 100 MG tablet 100 mg PO QHS RF: 0 lorazepam 1 MG tablet 1 mg PO TID RF: 0 lisinopril-hydrochlorothiazide 1 TABLET tablet 1 tab PO DAILY RF: 0 levothyroxine 50 MCG tablet 50 mcg PO DAILY RF: 0 simvastatin 20 MG tablet 20 mg PO DAILY RF: 0 atenolol 25 MG tablet 25 mg PO DAILY RF: 0 ascorbic acid (vitamin C) 500 MG tablet 500 mg PO DAILY@0800 RF: 0 hydrocodone-acetaminophen 1 EACH tablet 1 ea PO BID PRN (Reason: Pain Score 1-5) RF: 0 citalopram [Celexa] 10 mg tablet 10 mg PO QHS RF: 0 leucovorin calcium 10 MG tablet 5 mg PO FR RF: 0 furosemide 40 mg Tablet 40 mg PO BID PRN (Reason: Edema) RF: 0 insulin lispro [Humalog Pen] 100 unit/mL Insulin Pen 0 unit SUBCUT TID RF: 0 calcium carbonate-vitamin D3 [Calcium 500 + D (D3)] 500 mg-3.125 mcg (125 unit) Tablet 1 tab PO DAILY RF: 0 Lantus Solostar U-100 Insulin 100 unit/mL (3 mL) Insulin Pen 20 unit SUBCUT QPM RF: 0 hydromorphone-bupiv (PF)-NaCl 20 mcg/mL- 0.1 % Prefilled Pump [place] 0 ml continuous epidural DAILY RF: 0 diclofenac sodium [Voltaren Arthritis Pain] 1 % Gel 1 ea TOPICAL PRN PRN (Reason: Pain) RF: 0 dexamethasone [Decadron] 6 mg tablet 6 mg PO DAILY Qty: 5 RF: 0 Paxlovid (EUA) 150 mg x 2- 100 mg tablet See Rx Instructions .ROUTE .COMPLEX Qty: 6 RF: 0 Primary Care Provider: Rica Padgett Referrals: Rica Padgett DO [Primary Care Provider] - 3-5 Days Disposition Disposition: Home, Self Care
[2022-01-31] MEDS: 0.9% Normal Saline 1,000 ML 1000 ML IV (00:04)
[2022-01-31 00:11] LABS: Bacteria 0 SEEN /hpf (None Seen); Mucous, Urine 0 SEEN /hpf (<or=2+); Red Blood Cells-Urine 0 SEEN /hpf (0-5); Squamous Epithelial Cells - UA 0 SEEN /hpf (5-10); White Blood Cells 0 SEEN /hpf (0-5)
[2022-01-31 00:14] LABS: Color, Urine Straw (Yellow); Glucose, Dipstick 1000 mg/dl (Normal); Ketone-Dipstick Negative (Negative); Leukocyte Esterase-Dipstick Negative /ul (Negative); Nitrite-Dipstick Negative (Negative); Occult Blood-Urine Negative /ul (Negative); Protein-Dipstick Negative (Negative); Specific Gravity, Urine 1.015 (1.002-1.030); Urine Bilirubin Dipstick Negative (Negative); Urine Clarity Clear (Clear); Urine Urobilinogen Normal (Normal)
[2022-01-31 00:23] LABS: Absolute Lymphocyte Count 0.87 X10^3/uL (0.83-4.51); Basophil# 0.04 X10^3/uL; Basophil% 0.4 % (0-1); Hematocrit 42.7 % (37-47); Hemoglobin 13.5 g/dL (12.0-15.0); Lymphocyte # 0.87 X10^3/ul (0.83-4.51); Lymphocyte % 9.8 % (19-41); Mean Corp Hgb Conc 31.6 g/dL (32-36); Mean Corpuscular Hgb 27.1 pg (27.0-32.0); Mean Corpuscular Volume 85.7 fL (81-99); Mean Platelet Vol. 9.6 fl (6.2-12.0); Monocyte# 0.57 X10^3/uL; Monocyte% 6.4 % (0-10); NRBC Flagged by Analyzer 0 % (0-5); Neutrophil # 6.99 X10^3/uL (2.7-7.7); Neutrophil % 78.6 % (47-70); Platelet Count 317 K/mm3 (150-450); RBC Distribution Width CV 14.9 % (11.6-14.6); RBC Distribution Width SD 46.8 fl (35.1-43.9); Red Blood Count 4.98 M/mm3 (4.2-5.4); White Blood Count 8.9 K/mm3 (4.4-11.0)
[2022-01-31 00:26] LABS: Blood Gas Specimen Type VEN; VBG BASE EXCESS -1 mmol/L (-1.0-3.5); VBG Bicarbonate 25 mmol/L (22-26); VBG PO2 42 mmHg (25-40); VBG SO2 76 % (50-70); VBG TCO2 26 mmol/L (23-33); VBG pCO2 43.6 mmHg (41-51); VBG pH 7.36 (7.32-7.42)
[2022-01-31 00:39] LABS: ALB/GLOB Ratio 0.8 RATIO (0.9-2.4); AST(SGOT) 20 U/L (15-37); Alanine Aminotransfer ALT/SGPT 44 U/L (13-56); Albumin, Serum 3.4 g/dL (3.2-5.0); Alkaline Phosphatase 89 U/L (45-117); Anion Gap 6 (5-15); BUN 30 mg/dL (7-18); Calcium,Total 8.7 mg/dL (8.5-10.1); Chloride 103 mmol/L (98-107); Creatinine, Serum 1.25 mg/dL (0.55-1.02); EST Glomerular Filtration Rate 46 mL/min (>60); Est Glom Filt Rate - Afr Amer 56 mL/min (>60); Estimated Creatinine Clearance 39.78 ml/min; Glucose 545 mg/dL (74-106); Potassium 4.6 mmol/L (3.5-5.1); Protein, Total 7.4 g/dL (6.4-8.2); Sodium Level 135 mmol/L (136-145)
[2022-01-31] MEDS: Insulin Lispro 100 UNIT/ML INSULN.PEN 15 UNIT SC (00:44)
[2022-01-31 00:46] VITALS: BP 150/70; PULSE 52; RESP 14; O2SAT 95
[2022-01-31 01:56] LABS: Bedside Glucose 399 mg/dL (74-106)
[2022-01-31 03:58] VITALS: BP 114/82; PULSE 53; RESP 16; O2SAT 98
--- NOTE | 2022-01-31 04:01 | ED.RN ---
went over discharge instructions,went to obtain blood sugar.pt was gone,unable to obtain.
== END 2022-01-31 04:02 | disposition home or self-care (01) ==
PROVIDERS: Emergency Provider Emergency Medicine; PCP Family Medicine; Visit Provider Emergency Medicine
DX: E11.65 Type 2 diabetes mellitus with hyperglycemia (principal); Z79.4 Long term (current) use of insulin; U07.1 COVID-19; H53.8 Other visual disturbances; I10 Essential (primary) hypertension; E78.00 Pure hypercholesterolemia, unspecified; K21.9 Gastro-esophageal reflux disease without esophagitis; M79.7 Fibromyalgia; Z79.890 Hormone replacement therapy; Z87.891 Personal history of nicotine dependence
CPT/HCPCS: 80053; 81001; 82009; 82803; 82962; 85025; 96360; 96361; 99284

== ENCOUNTER → 2022-07-07 | Outpatient (CLI) | payer MEDICARE, OTHER, SELFPAY ==
[2022-07-07 13:46] LABS: Amphetamine Urine VISTA NEGATIVE (<1000 ng/mL); Barbiturate Urine VISTA NEGATIVE (< 200 ng/mL); Benzodiazepine Urine VISTA NEGATIVE (< 200 ng/mL); Cocaine Urine VISTA NEGATIVE (< 300 ng/mL); Ecstacy Urine VISTA NEGATIVE (< 500 ng/mL); Methadone Urine VISTA NEGATIVE (< 300 ng/mL); PCP Urine VISTA NEGATIVE (< 25 ng/mL); THC Urine VISTA NEGATIVE (< 50 ng/mL); Vista UDS pH Range 6
== END | disposition home or self-care (01) ==
LOC: LAB 12:04
PROVIDERS: PCP Family Medicine; Referring Provider Anesthesiology Pain Medicine; Visit Provider Anesthesiology Pain Medicine
DX: F11.20 Opioid dependence, uncomplicated (principal)
CPT/HCPCS: 80307

== ENCOUNTER → 2022-09-15 | Outpatient (CLI) | payer MEDICARE, OTHER, SELFPAY ==
--- NOTE | 2022-09-15 13:13 | VDLE_ITS ---
Reason For Study: R/O DVT RIGHT LEFT GSV is normal. GSV is normal. CFV is compressible, spontaneous, phasic, CFV is compressible, spontaneous, phasic, competent and demonstrates normal competent, and demonstrates normal augmentation. augmentation. FV is compressible, spontaneous, phasic, FV is compressible, spontaneous, phasic, competent and demonstrates normal competent and demonstrates normal augmentation. augmentation. POP V is compressible, spontaneous, phasic, POP V is compressible, spontaneous, phasic, competent and demonstrates normal competent and demonstrates normal augmentation. augmentation. T/P Trunk is compressible. T/P Trunk is compressible. PTV is compressible. PTV is compressible. RT PerV is compressible. LT PerV is compressible. Procedure This is a venous duplex using B-mode, color flow and spectral Doppler. Exam performed in department. A preliminary report was called and/or faxed to Colin. VL/Venous Duplex US - Sean Extrem Interpretation Summary Deep veins of the lower extremities are bilaterally patent and compressible seg mentally. There is no evidence of deep vein thrombosis on either side. Valvular competence appears in tact within the proximal deep venous systems bilaterally. The great saphenous veins appear bila terally patent and compressible segmentally. Ordering Physician: Deuce Shaw V Referring Physician: Rica Padgett Performed By: Orquidea El RVT
[2022-09-15 14:38] LABS: D-Dimer Quantitative (DVT/PE) 0.65 FEU/ug/m (0.27-0.49)
== END | disposition home or self-care (01) ==
PROVIDERS: PCP Family Medicine; Referring Provider Internal Medicine Pulmonary Disease; Visit Provider Internal Medicine Pulmonary Disease
DX: R06.02 Shortness of breath (principal)
CPT/HCPCS: 36415; 85379; 93970

== ENCOUNTER 2022-09-16 13:14 | Observation (INO) | payer MEDICARE, OTHER, SELFPAY ==
[2022-09-16 13:16] VITALS: BP 163/112; PULSE 86; RESP 18; TEMP 36.4; O2SAT 90; BMI 46.0
[2022-09-16 14:29] VITALS: PULSE 76; RESP 14; O2SAT 86; O2SAT 91
--- NOTE | 2022-09-16 14:30 | EKG12_ITS ---
Test Reason : Blood Pressure : / mmHG Vent. Rate : 079 BPM Atrial Rate : 079 BPM P-R Int : 140 ms QRS Dur : 084 ms QT Int : 396 ms P-R-T Axes : 051 006 030 degrees QTc Int : 454 ms Normal sinus rhythm Nonspecific ST and T wave abnormality Abnormal ECG Confirmed by DEVI DAVIS, VLAD ([id number]), writer editor MAIRA JENKINS ([id number]) on 09/20/2022 10:37:44 AM Referred By: ALENA Confirmed By:VLAD QUINONEZ MD
--- NOTE | 2022-09-16 14:30 | CT_ITS ---
EXAM: CT ANGIOGRAPHY CHEST WITHOUT AND WITH INTRAVENOUS CONTRAST CLINICAL INDICATION: sob, elevated dimer TECHNIQUE: Helically acquired angiography images were obtained of the chest without and with intravenous contrast. This CT exam was performed using one or more of the following dose reduction techniques: automated exposure control, adjustment of the mA and/or kV according to patient size, and/or use of iterative reconstruction technique. This report was created using [employer] report generation technology. MIP reconstructed images were created and reviewed. CONTRAST: 100mL Isovue 370 RADIATION DOSE: CTDIvol = 14.24 mGy, DLP = 1043.19 mGy-cm COMPARISON: 5.30.22 FINDINGS: PULMONARY ARTERIES: Unremarkable. No demonstrated pulmonary embolism or arterial dissection. AORTA: There is atherosclerotic calcification of the aortic arch with tortuosity and elongation of the aortic arch and descending thoracic aorta. Normal in caliber. No evidence of dissection. GREAT VESSELS OF AORTIC ARCH: See above. LUNGS AND PLEURAL SPACES: Unremarkable. No mass. No consolidation or edema. No pleural effusion or thickening. No pneumothorax. HEART: There are calcifications of the coronary arteries. No pericardial effusion. No signs of right heart strain, ratio of right ventricle to left ventricle measures less than 1. MEDIASTINUM: Unremarkable. No mediastinal or hilar adenopathy. Esophagus is unremarkable. No hiatal hernia. THYROID: Unremarkable. No thyroid lesions. BONES/JOINTS: There are degenerative changes of the shoulders. There are multi-level degenerative changes of the thoracic spine. No suspicious lytic or blastic abnormality. CT/CTA Chest W/WO Contrast IMPRESSION: No demonstrated pulmonary embolism or arterial dissection. Electronically Signed: Celestine Martinez MD at 16:18 [facility] ,
[2022-09-16 14:43] LABS: Absolute Lymphocyte Count 1.58 X10^3/uL (0.83-4.51); Absolute Neutrophil Count 5.8 X10^3/uL (2.0-7.7); Basophil# 0.03 X10^3/uL; Basophil% 0.4 % (0-1); Eosinophil# 0.28 X10^3/uL; Eosinophils% 3.3 % (0-5); Hematocrit 39.7 % (37-47); Hemoglobin 12.2 g/dL (12.0-15.0); Lymphocyte # 1.58 X10^3/ul (0.83-4.51); Lymphocyte % 18.8 % (19-41); Mean Corp Hgb Conc 30.7 g/dL (32-36); Mean Corpuscular Hgb 27.7 pg (27.0-32.0); Mean Platelet Vol. 10.1 fl (6.2-12.0); Monocyte# 0.63 X10^3/uL; Monocyte% 7.5 % (0-10); NRBC Flagged by Analyzer 0 % (0-5); Neutrophil # 5.84 X10^3/uL (2.7-7.7); Neutrophil % 69.5 % (47-70); Platelet Count 254 K/mm3 (150-450); RBC Distribution Width CV 14.1 % (11.6-14.6); RBC Distribution Width SD 45.8 fl (35.1-43.9); Red Blood Count 4.41 M/mm3 (4.2-5.4); White Blood Count 8.4 K/mm3 (4.4-11.0)
--- NOTE | 2022-09-16 14:55 | EDS_ITS ---
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 Patient states she felt more short of breath over the past month and has been worse over the past week. Denies any new swelling of her legs. States she sometimes wakes up at night little short of breath but this not new for her. Does feel more short of breath when she is walking on the house. Denies any fever or chills. Denies any new cough. Was seen by her acquisition editor and had an outpatient venous duplex which was negative as well as an outpatient D-dimer. The D-dimer was elevated 0.65 and she is into the ER for rule out PE. Patient denies any known history of fluid overload. No other complaints at this time. Currently denies any chest pain. No she had a bad reflux episode couple days ago and now her voice is hoarse from that. Notes that she currently has a headache but states that she gets them from time to time. She got one when she arrived to the ER. Denies any change in her headaches compared to prior 1. PE Risk Factors: Positive for Prior DVT or PE [facility] Medical History Ambulates with cane Anxiety Arthritis ASV (adaptive servo-ventilation) use counseling Back pain Bone spur calcium calcifications Depression Diabetes Dietary restriction Difficulty balancing DVT (deep venous thrombosis) Fatigue Fibromyalgia Former smoker Gait instability Gastric reflux High cholesterol History of diverticulitis History of edema History of pain when walking History of stress test Hypertension Implantable intrathecal infusion pump present Insulin dependent diabetes mellitus Leg cramps Limb weakness Migraine headache Mixed connective tissue disease Neck pain Normal stress echocardiogram On home oxygen therapy Osteoarthritis PTSD (post-traumatic stress disorder) Shortness of breath on exertion Shoulder pain Syncope Thyroid disease Wears glasses Home Medications hydroxyzine pamoate 50 mg capsule 100 mg PO QHS mood 08/30/13 [History Last Taken 09/15/22] lorazepam 1 mg tablet 1 mg PO TID mood 08/30/13 [History Last Taken 09/15/22] omeprazole 40 mg capsule,delayed release 40 mg PO DAILY GERD 08/30/13 [History Last Taken 09/15/22] tizanidine 4 mg tablet 8 mg PO QHS muscle relaxer 08/30/13 [History Last Taken 09/15/22] trazodone 100 mg tablet 100 mg PO QHS mood 08/30/13 [History Last Taken 09/15/22] lisinopril 20 mg-hydrochlorothiazide 25 mg tablet 1 tab PO DAILY bp 12/06/14 [History Last Taken 09/15/22] levothyroxine 50 mcg tablet 50 mcg PO DAILY thyroid 10/21/17 [History Last Taken 09/15/22] simvastatin 20 mg tablet 20 mg PO DAILY cholesterol 10/21/17 [History Last Taken 09/15/22] atenolol 25 mg tablet 25 mg PO DAILY heart 05/18/19 [History Last Taken 09/15/22] citalopram 10 mg tablet (Celexa) 40 mg PO QHS mood 12/15/19 [History Last Taken 09/15/22] folic acid 0.8 mg capsule 0.8 mg PO DAILY PRN WITH WATER PILL 08/19/20 [History Last Taken Unknown] methotrexate sodium 2.5 mg tablet 20 mg PO FR fibromyalgia 08/19/20 [History Last Taken 09/10/22] potassium chloride 8 mEq capsule,extended release 20 meq PO BID PRN WITH WATER PILL 08/19/20 [History Last Taken Unknown] leucovorin calcium 10 mg tablet 5 mg PO FR supplement 12/08/20 [History Last Taken 09/10/22] diclofenac sodium 1 % topical gel (Voltaren Arthritis Pain) 1 ea topical PRN PRN Pain 09/22/21 [History Last Taken 3 Days Ago ~09/13/22] furosemide 40 mg tablet 40 mg PO BID PRN Edema 09/22/21 [History Last Taken Unknown] hydromorphone(PF) 20 mcg/mL-bupivacaine 0.1 %-0.9 % NaCl epidural resv 0 ml continuous epidural DAILY pain 09/22/21 [History Last Taken Unknown] insulin glargine 100 unit/mL (3 mL) subcutaneous pen (Lantus Solostar U-100 Insulin) 45 unit subcut QPM dm 09/22/21 [History Last Taken 09/15/22] cholecalciferol (vitamin D3) 25 mcg (1,000 unit) capsule 25 mcg PO DAILY supplement 09/13/22 [History Last Taken 09/15/22] gabapentin 100 mg capsule 100 mg PO TID nerve pain 09/13/22 [History Last Taken 09/15/22] insulin lispro 100 unit/mL subcutaneous pen See Rx Instructions subcut TID 09/13/22 [History Last Taken 09/16/22] lactobacillus combination no.9 4 billion cell capsule (Adult 50 Plus Probiotic) 4,000 mmu cells PO DAILY supplement 09/13/22 [History Last Taken 09/15/22] oxycodone-acetaminophen 5 mg-325 mg tablet (Percocet) 1 tab PO Q8H PRN Pain 09/16/22 [History Last Taken 09/15/22] semaglutide 7 mg tablet 7 mg PO DAILY DM 09/16/22 [History Last Taken Unknown] Allergy/AdvReac Type Severity Reaction Status Date / Time niacin Allergy Itching Verified 09/13/22 10:28 metformin AdvReac Intermediate Diarrhea Verified 09/13/22 11:02 cephalexin [From Keflex] AdvReac Other Verified 09/13/22 10:28 Family History Sister Breast cancer Diabetes Kidney disease Other Arthritis Heart disease Surgical History History of back surgery History of carpal tunnel release Hx of arthroscopic knee surgery Hx of hysterectomy hx of plantar fasciotomy Hx of surgical procedure Hx of total knee replacement Social History Smoking Status: Former smoker alcohol intake: never substance use type: does not use caffeine: No what type of physical activity do you participate in: none seatbelt use: always do you feel safe at home: Yes additional social history: [employer] at [employer] Patient is disabled ROS ROS ED Constitutional Constitutional ED: Denies chills or fever(s) Eyes Eyes: Denies change in vision ENT ENT ED: Denies rhinorrhea or sore throat Cardiovascular Cardiovascular: Denies chest pain, orthopnea, palpitations or paroxysmal nocturnal dyspnea Respiratory/Chest Respiratory/Chest: Reports dyspnea and dyspnea on exertion; Denies cough, orthopnea or paroxysmal nocturnal dyspnea Gastrointestinal Gastrointestinal: Denies abdominal pain, nausea or vomiting Musculoskeletal Musculoskeletal: Denies arthralgias or myalgias Integumentary Denies rash Neurologic Neurologic: Reports headache(s); Denies paresthesias or weakness Psychiatric Psychiatric: Denies anxiety Hematologic/Lymphatic Hematologic/Lymphatic: Denies easy bleeding or easy bruising EXAM Physical Exam Const Vital Signs: 09/16/22 13:16 09/16/22 14:08 09/16/22 14:29 Temperature 97.6 F L Temperature Source Temporal Pulse Rate 86 Respiratory Rate 18 Respiratory Effort Normal Blood Pressure 163/112 H Blood Pressure Mean 129 Pulse Ox 90 86 Oxygen Delivery Method Room Air Room Air Room Air Oxygen Flow Rate (L/min) 09/16/22 14:29 09/16/22 16:28 09/16/22 16:28 Temperature Temperature Source Pulse Rate 76 81 Respiratory Rate 14 16 Respiratory Effort Blood Pressure 139/58 H Blood Pressure Mean 85 Pulse Ox 91 93 Oxygen Delivery Method Nasal Cannula Nasal Cannula Nasal Cannula Oxygen Flow Rate (L/min) 2 2 2 09/16/22 16:49 09/16/22 16:49 09/16/22 17:15 Temperature 97.6 F L Temperature Source Temporal Pulse Rate 79 Respiratory Rate 19 H Respiratory Effort Blood Pressure 139/55 H Blood Pressure Mean 83 Pulse Ox 85 96 94 Oxygen Delivery Method Room Air Nasal Cannula Nasal Cannula Oxygen Flow Rate (L/min) 3 4 Positive well nourished and well developed General Appearance ED: well developed and NAD; Negative for pallor HEENT Reports moist mucous membranes atraumatic Eyes PERRL and EOMs intact bilaterally Neck supple and no JVD Resp normal respiratory effort and clear to auscultation bilaterally Cardio regular rate, regular rhythm and no murmurs GI non-tender and non-distended Neuro oriented x3 Neuro Narrative: No focal deficits. Brace on her right lower extremity Sensorium / Orientation: alert Motor Exam: Negative for general weakness Psych mental status grossly normal Skin no wounds General Skin Exam: Negative for jaundice or pallor Rashes: no rashes MDM MDM MDM Narrative Medical decision making narrative: Patient is evaluated for increased dyspnea on exertion. She does have a history of obesity with a recent 50 pound weight gain, hypertension and obstructive sleep apnea but she states she has been compliant with her home O2. Differential includes pulmonary hypertension, pneumonia, heart failure as well as pulmonary emboli. Patient did have a positive outpatient D-dimer. Work-up including CTA of the chest is largely negative. EKG does not show any acute ischemic changes. While patient was in the ER after ambulation she does desaturate into the mid 80s. She is requiring supplemental oxygen. Given her acute hypoxia I do think she would benefit from admission as expected as a cause is not clear. Discussed diuresing the patient with hospice but he states he would like to wait to evaluate her. After his evaluation he feels that patient might have right heart failure and would benefit from an echocardiogram and further diuresis. He will order diuresis at this time. Patient and agreeable to this plan of care. Patient otherwise remains hemodynamically stable in the emergency room. Lab Data Attestation: I reviewed the patient's lab results. Labs: Laboratory Results - last 24 hr 09/16/22 09/16/22 09/16/22 14:10 14:10 14:10 WBC 8.4 RBC 4.41 Hgb 12.2 Hct 39.7 MCV 90.0 MCH 27.7 MCHC 30.7 L RDW Std Deviation 45.8 H RDW Coeff of Mouna 14.1 Plt Count 254 MPV 10.1 Immature Gran % (Auto) 0.500 Neut % (Auto) 69.5 Lymph % (Auto) 18.8 L Moore % (Auto) 7.5 Eos % (Auto) 3.3 Baso % (Auto) 0.4 Absolute Neuts (auto) 5.8 Absolute Lymphs (auto) 1.58 Nucleated RBC % 0 Sodium 140 Potassium 4.5 Chloride 104 Carbon Dioxide 32.0 Anion Gap 4 L BUN 15 Creatinine 0.83 Estim Creat Clear Calc 59.13 Est GFR (MDRD) Af Amer 89 Est GFR (MDRD) Non-Af 74 BUN/Creatinine Ratio 18.1 Glucose 225 H Calcium 9.0 Troponin I High Sens 6 B-Natriuretic Peptide 76.4 Urine Color Urine Clarity Urine pH Ur Specific [place] Urine Protein Urine Glucose (UA) Urine Ketones Urine Occult Blood Urine Nitrite Urine Bilirubin Urine Urobilinogen Ur Leukocyte Esterase Urine RBC Urine WBC Ur Squamous Epith Cells Urine Bacteria Urine Mucus 09/16/22 16:45 WBC RBC Hgb Hct MCV MCH MCHC RDW Std Deviation RDW Coeff of Mouna Plt Count MPV Immature Gran % (Auto) Neut % (Auto) Lymph % (Auto) Moore % (Auto) Eos % (Auto) Baso % (Auto) Absolute Neuts (auto) Absolute Lymphs (auto) Nucleated RBC % Sodium Potassium Chloride Carbon Dioxide Anion Gap BUN Creatinine Estim Creat Clear Calc Est GFR (MDRD) Af Amer Est GFR (MDRD) Non-Af BUN/Creatinine Ratio Glucose Calcium Troponin I High Sens B-Natriuretic Peptide Urine Color Yellow Urine Clarity Clear Urine pH 7.0 Ur Specific [place] 1.005 Urine Protein Negative Urine Glucose (UA) Normal Urine Ketones Negative Urine Occult Blood Negative Urine Nitrite Negative Urine Bilirubin Negative Urine Urobilinogen Normal Ur Leukocyte Esterase Negative Urine RBC 0 SEEN Urine WBC 0 SEEN Ur Squamous Epith Cells 0-5 SEEN Urine Bacteria 0 SEEN Urine Mucus 0 SEEN ABG Data ABG results: ABG 09/16/22 17:27 Specimen Type ART Sample Site L Radial pH 7.39 Bicarbonate Actual 31.9 H Total CO2 34 Base Excess 7 H O2 Saturation 95 ABG pCO2 53.2 H ABG pO2 79 Francisco Test Positive O2 Delivery Device Cannula Liter Flow 2.0 Radiography Diagnostic Testing: Clinical Impression(s) from Imaging Studies Chest CTA 09/16/22 14:30 IMPRESSION: No demonstrated pulmonary embolism or arterial dissection. Electronically Signed: Celestine Martinez MD at 16:18 EST Reading Location ID and State: [facility] / [place] , Service support , Rhythm Strip Rhythm Strip: Sinus Rhythm Rate: 79 Ectopy: None EKG Initial EKG: Attestation: I personally reviewed and interpreted this EKG as follows: Interpretation: Sinus Rhythm Comments: Normal sinus rhythm at a rate of 79 bpm Normal axis Normal intervals Nonspecific T wave changes in 3, V1 through V3 with no change compared to prior EKG on 01/25/2022 Discharge Plan Dx/Rx/DC Orders Clinical Impression: Hypoxia, Obesity, NIEVES (dyspnea on exertion), Hypertension Disposition Disposition: Acute Care Hospital [facility] Discharge Date/Time: 09/16/22 19:05
[2022-09-16 15:01] LABS: Anion Gap 4 (5-15); BUN 15 mg/dL (7-18); BUN/Creat Ratio 18.1 RATIO (10-20); Chloride 104 mmol/L (98-107); Creatinine, Serum 0.83 mg/dL (0.55-1.02); EST Glomerular Filtration Rate 74 mL/min (>60); Est Glom Filt Rate - Afr Amer 89 mL/min (>60); Estimated Creatinine Clearance 59.13 ml/min; Glucose 225 mg/dL (74-106); Potassium 4.5 mmol/L (3.5-5.1); Sodium Level 140 mmol/L (136-145); Troponin-I HS 6 pg/mL (3.0-54.0)
[2022-09-16 15:05] LABS: BNP,B-Type NATRIURETIC PEPTIDE 76.4 pg/mL (0-100)
[2022-09-16] MEDS: Acetaminophen 325 MG Tablet 650 MG PO (15:08)
[2022-09-16 16:28] VITALS: BP 139/58; PULSE 81; RESP 16; O2SAT 93
[2022-09-16 16:49] VITALS: O2SAT 85; O2SAT 96
[2022-09-16 16:55] LABS: Bacteria 0 SEEN /hpf (None Seen); Mucous, Urine 0 SEEN /hpf (<or=2+); Red Blood Cells-Urine 0 SEEN /hpf (0-5); White Blood Cells 0 SEEN /hpf (0-5)
[2022-09-16 17:09] LABS: Color, Urine Yellow (Yellow); Glucose, Dipstick Normal (Normal); Ketone-Dipstick Negative (Negative); Leukocyte Esterase-Dipstick Negative /ul (Negative); Nitrite-Dipstick Negative (Negative); Occult Blood-Urine Negative /ul (Negative); Protein-Dipstick Negative (Negative); Specific Gravity, Urine 1.005 (1.002-1.030); Urine Bilirubin Dipstick Negative (Negative); Urine Clarity Clear (Clear); Urine Urobilinogen Normal (Normal)
[2022-09-16 17:15] VITALS: BP 139/55; PULSE 79; RESP 19; TEMP 36.4; O2SAT 94
--- NOTE | 2022-09-16 17:18 | NURSING ---
MED SURG OBS TERELETSKY HYPOXIA
[2022-09-16 17:31] LABS: Allen Test Positive; Base Excess 7 mmol/L (-2 to +2); Bicarbonate 31.9 mmol/L (22-26); Blood Gas Specimen Type ART; O2 Delivery Device Cannula; PO2 79 mmHG (75-100); SITE L Radial; SO2 95 % (95-99); Total Carbon Dioxide 34 mmol/L; pCO2 53.2 mmHg (35-45); pH 7.39 (7.35-7.45)
--- NOTE | 2022-09-16 17:35 | NURSING ---
MED SURG OBS TERELETSKY HYPOXIA
[2022-09-16 17:42] LABS: Squamous Epithelial Cells - UA 0-5 SEEN /hpf (5-10)
[2022-09-16 19:15] VITALS: BP 141/63; PULSE 81; RESP 18; TEMP 36.2; O2SAT 96; BMI 46.1
--- NOTE | 2022-09-16 19:21 | ECHOD_ITS ---
Reason For Study: DYSPNEA/SOB Procedure This was a 2D Doppler, Color Flow transthoracic echocardiogram. Exam performed portable in patient room. Left Ventricle Normal LV size. Left ventricular systolic function is normal. The estimated ejection fraction is 55 %. Stage 1 diastolic dysfunction. No regional wall motion abnormalities noted. Right Ventricle Normal RV size. Normal systolic function. Atria The left atrium is mildly enlarged. Normal right atrium. Mitral Valve Normal mitral valve. Tricuspid Valve Normal tricuspid valve. Mild tricuspid valve insufficiency. Pulmonary artery systolic pressure is 30 mmHg. Aortic Valve Trisinus/trileaflet aortic valve. Great Vessels Normal aortic root. The pulmonary artery is normal size. Normal inferior vena cava. Pericardium/Pleural No pericardial effusion. MMode/2D Measurements & Calculations LVIDd: 5.4 cm IVSd: 1.0 cm LAV(MOD-bp): 71.7 ml LVIDs: 3.4 cm LVPWd: 1.0 cm LAV(MOD-bp) Indexed: 32.6 ml/m2 RVDd: 3.4 cm FS: 37.5 % LAV(MOD-sp2): 69.2 ml LAV(MOD-sp4): 70.9 ml LA A4 area: 23.1 cm2 LA dimension(2D): 3.6 cm RA A4 area: 21.0 cm2 Time Measurements MV dec time: 0.18 sec Doppler Measurements & Calculations MV E max glynn: 86.9 cm/sec Lat Peak E' Glynn: 9.2 cm/sec Med Peak E' Glynn: 9.5 cm/sec MV A max glynn: 97.1 cm/sec E/E' lat: 9.4 E/E' med: 9.2 MV E/A: 0.89 MV dec slope: 490.5 cm/sec2 Ao V2 max: 171.9 cm/sec LV V1 max: 139.9 cm/sec Ao max P.8 mmHg LV V1 max P.8 mmHg Ao V2 mean: 123.3 cm/sec LV V1 mean P.0 mmHg Ao mean P.7 mmHg LV V1 mean: 94.4 cm/sec Ao V2 VTI: 32.6 cm LV V1 VTI: 26.3 cm AV (velocity ratio): 0.81 PA V2 max: 106.5 cm/sec TR max glynn: 248.2 cm/sec TR max P.6 mmHg ECHO/Echo Complete Interpretation Summary Normal LV size. Left ventricular systolic function is normal. The estimated ejection fraction is 55 %. Stage 1 diastolic dysfunction. The left atrium is mildly enlarged. Pulmonary artery systolic pressure is 30 mmHg. Ordering Physician: Adebayo Mckeon Referring Physician: Rica Padgett Performed By: Niya Espinal, HAO, RVT
--- NOTE | 2022-09-16 20:11 | HP.PCM.HOS_ITS ---
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 Patient underwent a venous Doppler study of her lower extremities today which did not show evidence of VTE. Patient has a history of obstructive sleep apnea and is on CPAP at night with 2 L of oxygen. Patient denies any cough, fever, or chills. Work-up in the emergency room included a CTA of the chest which showed no evidence of pulmonary embolism or acute process in the lungs. Patient CBC was unremarkable, patient's arterial blood gas on 2 L showed a pH of 7.39, PCO2 of 53, and PO2 of 79. Chemistry profile was remarkable for glucose of 225. Gutierrez salazar's pulse ox on room air was 85%. On examination of the patient, patient's lungs are clear bilaterally, there is appreciable edema in the patient's lower legs however. Patient will be admitted for hypoxia-I think there is a possibility that the patient could have right- sided heart failure, I have ordered an echocardiogram on the patient and elected to place the patient on IV Lasix to see if this would improve her oxygenation. Patient will remain on her present home medications, I have elected to stop her lisinopril HCT because she is on Lasix, if she goes home on Lasix, she will need a prescription for lisinopril without the hydrochlorothiazide. [facility] Medical History Ambulates with cane Anxiety Arthritis ASV (adaptive servo-ventilation) use counseling Back pain Bone spur calcium calcifications Depression Diabetes Dietary restriction Difficulty balancing DVT (deep venous thrombosis) Fatigue Fibromyalgia Former smoker Gait instability Gastric reflux High cholesterol History of diverticulitis History of edema History of pain when walking History of stress test Hypertension Implantable intrathecal infusion pump present Insulin dependent diabetes mellitus Leg cramps Limb weakness Migraine headache Mixed connective tissue disease Neck pain Normal stress echocardiogram On home oxygen therapy Osteoarthritis PTSD (post-traumatic stress disorder) Shortness of breath on exertion Shoulder pain Syncope Thyroid disease Wears glasses Home Medications hydroxyzine pamoate 50 mg capsule 100 mg PO QHS mood 08/30/13 [History Last Taken 09/15/22] lorazepam 1 mg tablet 1 mg PO TID mood 08/30/13 [History Last Taken 09/15/22] omeprazole 40 mg capsule,delayed release 40 mg PO DAILY GERD 08/30/13 [History Last Taken 09/15/22] tizanidine 4 mg tablet 8 mg PO QHS muscle relaxer 08/30/13 [History Last Taken 09/15/22] trazodone 100 mg tablet 100 mg PO QHS mood 08/30/13 [History Last Taken 09/15/22] lisinopril 20 mg-hydrochlorothiazide 25 mg tablet 1 tab PO DAILY bp 12/06/14 [History Last Taken 09/15/22] levothyroxine 50 mcg tablet 50 mcg PO DAILY thyroid 10/21/17 [History Last Taken 09/15/22] simvastatin 20 mg tablet 20 mg PO DAILY cholesterol 10/21/17 [History Last Taken 09/15/22] atenolol 25 mg tablet 25 mg PO DAILY heart 05/18/19 [History Last Taken 09/15/22] citalopram 10 mg tablet (Celexa) 40 mg PO QHS mood 12/15/19 [History Last Taken 09/15/22] folic acid 0.8 mg capsule 0.8 mg PO DAILY PRN WITH WATER PILL 08/19/20 [History Last Taken Unknown] methotrexate sodium 2.5 mg tablet 20 mg PO FR fibromyalgia 08/19/20 [History Last Taken 09/10/22] potassium chloride 8 mEq capsule,extended release 20 meq PO BID PRN WITH WATER PILL 08/19/20 [History Last Taken Unknown] leucovorin calcium 10 mg tablet 5 mg PO FR supplement 12/08/20 [History Last Taken 09/10/22] diclofenac sodium 1 % topical gel (Voltaren Arthritis Pain) 1 ea topical PRN PRN Pain 09/22/21 [History Last Taken 3 Days Ago ~09/13/22] furosemide 40 mg tablet 40 mg PO BID PRN Edema 09/22/21 [History Last Taken Unknown] hydromorphone(PF) 20 mcg/mL-bupivacaine 0.1 %-0.9 % NaCl epidural resv 0 ml continuous epidural DAILY pain 09/22/21 [History Last Taken Unknown] insulin glargine 100 unit/mL (3 mL) subcutaneous pen (Lantus Solostar U-100 Insulin) 45 unit subcut QPM dm 09/22/21 [History Last Taken 09/15/22] cholecalciferol (vitamin D3) 25 mcg (1,000 unit) capsule 25 mcg PO DAILY supplement 09/13/22 [History Last Taken 09/15/22] gabapentin 100 mg capsule 100 mg PO TID nerve pain 09/13/22 [History Last Taken 09/15/22] insulin lispro 100 unit/mL subcutaneous pen See Rx Instructions subcut TID 09/13/22 [History Last Taken 09/16/22] lactobacillus combination no.9 4 billion cell capsule (Adult 50 Plus Probiotic) 4,000 mmu cells PO DAILY supplement 09/13/22 [History Last Taken 09/15/22] oxycodone-acetaminophen 5 mg-325 mg tablet (Percocet) 1 tab PO Q8H PRN Pain 09/16/22 [History Last Taken 09/15/22] semaglutide 7 mg tablet 7 mg PO DAILY DM 09/16/22 [History Last Taken Unknown] Allergy/AdvReac Type Severity Reaction Status Date / Time niacin Allergy Itching Verified 09/13/22 10:28 metformin AdvReac Intermediate Diarrhea Verified 09/13/22 11:02 cephalexin [From Keflex] AdvReac Other Verified 09/13/22 10:28 Family History Sister Breast cancer Diabetes Kidney disease Other Arthritis Heart disease Surgical History History of back surgery History of carpal tunnel release Hx of arthroscopic knee surgery Hx of hysterectomy hx of plantar fasciotomy Hx of surgical procedure Hx of total knee replacement Social History Smoking Status: Former smoker alcohol intake: never substance use type: does not use caffeine: No what type of physical activity do you participate in: none seatbelt use: always do you feel safe at home: Yes additional social history: [employer] Patient is disabled ROS Constitutional Constitutional: Denies anorexia, change in weight, chills, fatigue, fever(s), malaise, night sweats or weakness Eyes Eyes: Denies blurry vision, change in vision, discharge from eye(s) or eye pain Cardiovascular Cardiovascular: Denies chest pain, claudication, dyspnea on exertion, edema, lightheadedness, orthopnea or palpitations Respiratory/Chest Respiratory/Chest: Denies cough, excessive phlegm production, hemoptysis, productive cough, shortness of breath at rest or shortness of breath with exertion Gastrointestinal Gastrointestinal: Denies abdominal pain, coffee ground emesis, constipation, diarrhea, hematemesis, hematochezia, melena, nausea or vomiting Genitourinary Genitourinary: Denies difficulty urinating, dysuria, hematuria, nocturia, urinary frequency, urinary hesitancy, urinary incontinence or urinary urgency Musculoskeletal Musculoskeletal: Denies back pain, joint pain, joint stiffness, joint swelling, myalgias or neck pain Neurologic Neurologic: Denies abnormal gait, abnormal speech, dizziness, focal weakness, headache(s), loss of vision, numbness, other visual disturbances, paresthesias, syncope or tingling Psychiatric Psychiatric: Denies anxiety, cognitive impairment, depression, irritability, mood swings or suicidal ideation Endocrine Endocrinology: Denies change in body appearance, cold intolerance, excessive sweating, heat intolerance, polydipsia or polyuria Hematologic/Lymphatic Hematologic/Lymphatic: Denies none, anemia, easy bleeding, easy bruising or lymphadenopathy Allergic/Immunologic Allergic/Immunologic: Denies rhinitis, urticaria, eczemia or asthma Vital Signs Vital Signs Vital Signs: 09/16/22 13:16 09/16/22 14:08 09/16/22 14:29 Temperature 97.6 F L Temperature Source Temporal Pulse Rate 86 Respiratory Rate 18 Respiratory Effort Normal Respiratory Depth Respiratory Pattern Blood Pressure 163/112 H Blood Pressure Mean 129 Blood Pressure Source Blood Pressure Position Blood Pressure Location Pulse Ox 90 86 Oxygen Delivery Method Room Air Room Air Room Air Oxygen Flow Rate (L/min) 09/16/22 14:29 09/16/22 16:28 09/16/22 16:28 Temperature Temperature Source Pulse Rate 76 81 Respiratory Rate 14 16 Respiratory Effort Respiratory Depth Respiratory Pattern Blood Pressure 139/58 H Blood Pressure Mean 85 Blood Pressure Source Blood Pressure Position Blood Pressure Location Pulse Ox 91 93 Oxygen Delivery Method Nasal Cannula Nasal Cannula Nasal Cannula Oxygen Flow Rate (L/min) 2 2 2 09/16/22 16:49 09/16/22 16:49 09/16/22 17:15 Temperature 97.6 F L Temperature Source Temporal Pulse Rate 79 Respiratory Rate 19 H Respiratory Effort Respiratory Depth Respiratory Pattern Blood Pressure 139/55 H Blood Pressure Mean 83 Blood Pressure Source Blood Pressure Position Blood Pressure Location Pulse Ox 85 96 94 Oxygen Delivery Method Room Air Nasal Cannula Nasal Cannula Oxygen Flow Rate (L/min) 3 4 09/16/22 19:15 09/16/22 19:21 Temperature 97.1 F L Temperature Source Temporal Pulse Rate 81 Respiratory Rate 18 Respiratory Effort Normal Non-Labored Respiratory Depth Normal Respiratory Pattern Normal Blood Pressure 141/63 H Blood Pressure Mean 89 Blood Pressure Source Monitor Blood Pressure Position Sitting Blood Pressure Location Right Arm Pulse Ox 96 Oxygen Delivery Method Nasal Cannula Nasal Cannula Oxygen Flow Rate (L/min) 2 2 Weight Weight: 121.971 kg Body Mass Index (BMI) 46.1 Physical Exam Const alert, oriented x3 and no apparent distress Constitutional Narrative: Patient is morbidly obese General Appearance: cooperative, well kempt and well developed Orientation / Consciousness: awake, oriented to person, oriented to place and oriented to time HEENT normocephalic and moist oral mucous membranes Eyes PERRL, EOMs intact bilaterally and conjunctivae normal Neck supple, no JVD, thyroid normal and no carotid bruits General: trachea midline Resp normal respiratory effort and clear to auscultation bilaterally Auscultation: Negative for rales, rhonchi or wheezes Cardio regular rate, regular rhythm, S1 normal heart sound, S2 normal heart sound, no murmurs, no rub and no gallops GI normal to inspection, nondistended, normoactive bowel sounds, soft to palpation, non-tender and non-distended Extremity Extremity Narrative: Patient has +1 to 2 mm pitting edema over the lower legs bilaterally Skin no rashes or lesions noted General Skin Exam: no breakdown Neuro oriented x3, CN's II-XII intact bilaterally, moves all extremities, no focal motor deficits and no sensory deficits noted Sensorium / Orientation: awake, alert, oriented to person, oriented to place and oriented to time Speech: speech normal Psych affect normal Results Lab / Micro Data Result Diagrams: 09/16/22 14:10 09/16/22 14:10 Labs: Laboratory Results - last 24 hr 09/16/22 14:10: WBC 8.4, RBC 4.41, Hgb 12.2, Hct 39.7, MCV 90.0, MCH 27.7, MCHC 30.7 L, RDW Std Deviation 45.8 H, RDW Coeff of Mouna 14.1, Plt Count 254, MPV 10.1, Immature Gran % (Auto) 0.500, Neut % (Auto) 69.5, Lymph % (Auto) 18.8 L, [place] % (Auto) 7.5, Eos % (Auto) 3.3, Baso % (Auto) 0.4, Absolute Neuts (auto) 5.8, Absolute Lymphs (auto) 1.58, Nucleated RBC % 0 09/16/22 14:10: Sodium 140, Potassium 4.5, Chloride 104, Carbon Dioxide 32.0, Anion Gap 4 L, BUN 15, Creatinine 0.83, Estim Creat Clear Calc 59.13, Est GFR (MDRD) Af Amer 89, Est GFR (MDRD) Non-Af 74, BUN/Creatinine Ratio 18.1, Glucose 225 H, Calcium 9.0, Troponin I High Sens 6 09/16/22 14:10: B-Natriuretic Peptide 76.4 09/16/22 16:45: Urine Color Yellow, Urine Clarity Clear, Urine pH 7.0, Ur Specific [place] 1.005, Urine Protein Negative, Urine Glucose (UA) Normal, Urine Ketones Negative, Urine Occult Blood Negative, Urine Nitrite Negative, Urine Bilirubin Negative, Urine Urobilinogen Normal, Ur Leukocyte Esterase Negative, Urine RBC 0 SEEN, Urine WBC 0 SEEN, Ur Squamous Epith Cells 0-5 SEEN, Urine Bacteria 0 SEEN, Urine Mucus 0 SEEN ABG Data ABG results: ABG 09/16/22 17:27 Specimen Type ART Sample Site L Radial pH 7.39 Bicarbonate Actual 31.9 H Total CO2 34 Base Excess 7 H O2 Saturation 95 ABG pCO2 53.2 H ABG pO2 79 [place] Test Positive O2 Delivery Device Cannula Liter Flow 2.0 Rhythm Strip Rhythm Strip: Sinus Rhythm Rate: 79 Ectopy: None Radiology Impression Chest CTA 09/16/22 14:30 IMPRESSION: No demonstrated pulmonary embolism or arterial dissection. Electronically Signed: Celestine Martinez MD at 16:18 EST , Assessment & Plan Assessment/Plan (1) Hypoxia: PLAN: Plan 1. Hypoxia-etiology unclear, may be due to right-sided heart failure, patient will be placed in observation status on MedSurg 3, IV Lasix will be administered to see if this improves the patient's oxygenation, she will have an echocardio gram performed tomorrow to rule out pulmonary hypertension. #2 obstructive sleep apnea-patient is on CPAP at night, her is going to bring in her machine for use in the hospital. #3 type 2 diabetes-patient's blood sugars will be monitored, she will remain on her home insulin dosage #4 chronic pain due to degenerative disc disease of the lumbar spine-patient will remain on her home pain medications #5 morbid obesity-complicates care, management, recovery, and prognosis #6 chronic depression-patient will remain on her home medications #7 hypothyroidism-patient will remain on Synthroid #8 hyperlipidemia-I elected to keep her off her simvastatin due to the fact that she may not have a lengthy hospital stay. Total clinical time spent by myself addressing the patient's medical issues, reviewing all her data, and collaborating with patient's care team: 55 minutes Charges/Coding Visit Charges Inpatient E&M: 80302 Init Hosp L2
[2022-09-16] MEDS: 0.9% Saline Lock 10 ML Syringe IV (21:05)
[2022-09-16] MEDS: Furosemide 20 MG/2 ML VIAL IV (21:05)
[2022-09-16] MEDS: hydrOXYzine PAM 25 MG Capsule 100 MG PO (21:05)
[2022-09-16] MEDS: LORazepam 1 MG Tablet PO (21:05)
[2022-09-16] MEDS: Gabapentin 100 MG Capsule PO (21:05)
[2022-09-16] MEDS: Citalopram 40 MG TABLET PO (21:06)
[2022-09-16] MEDS: tiZANidine HCl 2 MG Tablet 8 MG PO (21:06)
[2022-09-16] MEDS: traZODone 100 MG Tablet PO (21:07)
[2022-09-16] MEDS: Heparin Injection (Vial) 5,000 UNIT/ML VIAL 5000 UNIT SC (21:14)
[2022-09-16] MEDS: Insulin Glargine-YFGN 100 UNIT/ML Pen 45 UNIT SC (21:14)
[2022-09-16] MEDS: Insulin Lispro 100 UNIT/ML INSULN.PEN SC (21:16)
[2022-09-16 21:35] LABS: Bedside Glucose 196 mg/dL (74-106)
[2022-09-17] MEDS: oxyCODONE 5 MG Tablet PO ×2 (02:40→12:40)
[2022-09-17 03:00] VITALS: BP 117/64; PULSE 68; RESP 18; TEMP 36.7; O2SAT 92
[2022-09-17] MEDS: Gabapentin 100 MG Capsule PO ×2 (05:28→12:40)
[2022-09-17] MEDS: Levothyroxine 50 MCG Tablet PO (05:28)
[2022-09-17] MEDS: 0.9% Saline Lock 10 ML Syringe IV ×2 (05:28→12:40)
[2022-09-17] MEDS: LORazepam 1 MG Tablet PO ×2 (05:28→12:40)
[2022-09-17] MEDS: Furosemide 20 MG/2 ML VIAL IV ×2 (05:28→12:41)
[2022-09-17 07:20] LABS: Anion Gap 10 (5-15); BUN 16 mg/dL (7-18); BUN/Creat Ratio 18.4 RATIO (10-20); Calcium,Total 8.8 mg/dL (8.5-10.1); Chloride 97 mmol/L (98-107); Creatinine, Serum 0.87 mg/dL (0.55-1.02); EST Glomerular Filtration Rate 70 mL/min (>60); Est Glom Filt Rate - Afr Amer 84 mL/min (>60); Estimated Creatinine Clearance 56.41 ml/min; Glucose 146 mg/dL (74-106); Potassium 3.6 mmol/L (3.5-5.1); Sodium Level 139 mmol/L (136-145)
--- NOTE | 2022-09-17 08:09 | PN.HOSP_ITS ---
Subjective Subjective Feeling better. Objective Data Objective Data Vital Signs: Vital Signs Temp Pulse Resp BP Pulse Ox O2 Del Method O2 Flow Rate 36.7 C 68 18 117/64 92 Room Air 2 09/17/22 03:00 09/17/22 03:00 09/17/22 03:00 09/17/22 03:00 09/17/22 03:00 09/17/22 08:06 09/16/22 19:21 Oxygen Flow Rate (L/min) 2 Oxygen Delivery Method Room Air Weight: 121.971 kg Body Mass Index (BMI) 46.1 Intake & Output: Intake and Output for Last 24 Hours 09/15/22 09/16/22 09/17/22 23:59 23:59 23:59 Output Total 900 / 900 Balance -900 / -900 Lab / Micro Data Result Diagrams: 09/16/22 14:10 09/17/22 06:20 Labs: Laboratory Results - last 24 hr 09/16/22 14:10: WBC 8.4, RBC 4.41, Hgb 12.2, Hct 39.7, MCV 90.0, MCH 27.7, MCHC 30.7 L, RDW Std Deviation 45.8 H, RDW Coeff of [place] 14.1, Plt Count 254, MPV 10.1, Immature Gran % (Auto) 0.500, Neut % (Auto) 69.5, Lymph % (Auto) 18.8 L, [place] % (Auto) 7.5, Eos % (Auto) 3.3, Baso % (Auto) 0.4, Absolute Neuts (auto) 5.8, Absolute Lymphs (auto) 1.58, Nucleated RBC % 0 09/16/22 14:10: Sodium 140, Potassium 4.5, Chloride 104, Carbon Dioxide 32.0, Anion Gap 4 L, BUN 15, Creatinine 0.83, Estim Creat Clear Calc 59.13, Est GFR (MDRD) Af Amer 89, Est GFR (MDRD) Non-Af 74, BUN/Creatinine Ratio 18.1, Glucose 225 H, Calcium 9.0, Troponin I High Sens 6 09/16/22 14:10: B-Natriuretic Peptide 76.4 09/16/22 16:45: Urine Color Yellow, Urine Clarity Clear, Urine pH 7.0, Ur Specific [place] 1.005, Urine Protein Negative, Urine Glucose (UA) Normal, Urine Ketones Negative, Urine Occult Blood Negative, Urine Nitrite Negative, Urine Bilirubin Negative, Urine Urobilinogen Normal, Ur Leukocyte Esterase Negative, Urine RBC 0 SEEN, Urine WBC 0 SEEN, Ur Squamous Epith Cells 0-5 SEEN, Urine Bacteria 0 SEEN, Urine Mucus 0 SEEN 09/16/22 21:06: POC Glucose 196 H 09/17/22 06:20: Sodium 139, Potassium 3.6, Chloride 97 L, Carbon Dioxide 32.0, Anion Gap 10, BUN 16, Creatinine 0.87, Estim Creat Clear Calc 56.41, Est GFR (MDRD) Af Amer 84, Est GFR (MDRD) Non-Af 70, BUN/Creatinine Ratio 18.4, Glucose 146 H, Calcium 8.8 ABG Data ABG results: ABG 09/16/22 17:27 Specimen Type ART Sample Site L Radial pH 7.39 Bicarbonate Actual 31.9 H Total CO2 34 Base Excess 7 H O2 Saturation 95 ABG pCO2 53.2 H ABG pO2 79 [place] Test Positive O2 Delivery Device Cannula Liter Flow 2.0 Radiography Diagnostic Testing: Radiology Impression Chest CTA 09/16/22 14:30 IMPRESSION: No demonstrated pulmonary embolism or arterial dissection. Electronically Signed: Celestine Martinez MD at 16:18 EST Reading Location ID and State: [facility] / [place] , Service support , Rhythm Strip Rhythm Strip: Sinus Rhythm Rate: 79 Ectopy: None Physical Exam Const alert and no apparent distress HEENT head/scalp atraumatic Resp normal respiratory effort, no retractions, no use of accessory muscles and clear to auscultation bilaterally Cardio regular rate, regular rhythm, S1 normal heart sound and S2 normal heart sound GI normal to inspection, nondistended, normoactive bowel sounds and soft to palpation Extremity General Extremity: edema bilateral lower extremity Details: mild Assessment & Plan Assessment/Plan (1) Hypoxia: PLAN: CTA reviewed. Reported as negative but does show some Lynn glass opacities on my view. Check COVID-19 and influenza On IV furosemide Echo ordered check ambulatory oxygen Patient will only continue with oxygen 2 L through her bilevel machine. Continue with furosemide 20 mg daily. (2) Obesity hypoventilation syndrome: PLAN: Patient's ABG PCO2 was 53 Patient requires volume ventilation and all other alternative therapies, including bilevel, have been considered and ruled out due to the severity of the disease state, weak breathing muscles and potential life-threatening condition including CO2 retention probability of acute exacerbation, patient requires ventilation to be used during the day as needed, addition to every night usage with facemask. PLAN: Plan Chronic conditions: * obstructive sleep apnea-patient is on CPAP at night, her is going to bring in her machine for use in the hospital. * type 2 diabetes-patient's blood sugars will be monitored, she will remain on her home insulin dosage * chronic pain due to degenerative disc disease of the lumbar spine-patient will remain on her home pain medications * morbid obesity-complicates care, management, recovery, and prognosis * chronic depression-patient will remain on her home medications * hypothyroidism-patient will remain on Synthroid * hyperlipidemia-I elected to keep her off her simvastatin due to the fact that she may not have a lengthy hospital stay. DC home. Follow-up PCP and follow-up with pulmonology.
[2022-09-17] MEDS: Potassium Chloride Oral Tablet 20 MEQ 40 MEQ PO ×2 (08:14→16:23)
[2022-09-17] MEDS: Insulin Lispro 100 UNIT/ML INSULN.PEN SC ×3 (08:16→17:12)
[2022-09-17] MEDS: Atenolol 25 MG Tablet PO (08:17)
[2022-09-17] MEDS: Heparin Injection (Vial) 5,000 UNIT/ML VIAL 5000 UNIT SC (08:17)
[2022-09-17] MEDS: Lisinopril 20 MG Tablet PO (08:17)
[2022-09-17] MEDS: Pantoprazole Sodium 40 MG Tablet PO (08:17)
[2022-09-17 08:31] LABS: Bedside Glucose 124 mg/dL (74-106)
[2022-09-17 09:00] VITALS: BP 113/57; PULSE 71; RESP 16; TEMP 36.7; O2SAT 92
[2022-09-17 11:43] VITALS: O2SAT 91; O2SAT 93
[2022-09-17 12:05] LABS: Bedside Glucose 129 mg/dL (74-106)
--- NOTE | 2022-09-17 12:08 | CASEMGMT ---
Addendum entered by Shelbi Mccarthy 09/17/22 15:08: Emailed rx form for Trilogy to Nikki Lewis at [facility] per her request. Addendum entered by Shelbi Mccarthy 09/17/22 14:46: SAM RUSH in to pt room, pt lying in bed in no distress. Pt states she has oxygen at 2L bled in at night through her CPAP through [facility]. Pt sees for pulm. Pt states her assists her at home. She is to have a knee replacement in September. Pt is to start outpt water therapy post hospitalization. Pt has rx for this. Pt checks her blood sugars before meals and states she has sufficient supply of strips and lancets. Pt states she is on a diet called Prescribe Randy. She was able to lower her A1C by a point and now able to have the surgery she needs. Pt denies any homegoing needs at this time. Original Note: Per rounds, hospitalist states he is working with Jimmie on Trilegy. TC to Angelina, she requests H&P, sent to her at this time. States Nikki is working on this and should be arranged today.
--- NOTE | 2022-09-17 14:54 | CASEMGMT ---
SAM CM in to discuss BURNHAM form with patient. RN CM explained BURNHAM form, patient voiced understanding. Pt signed form and filed in chart. Pt provided with a copy of signed BURNHAM form. Patient had no further questions or concerns at this time.
--- NOTE | 2022-09-17 15:29 | DCINST_ITS ---
Discharge Instructions Diet Discharge Diet: 2000 Calorie Control Diet Follow Up Care Test Results: Test results from this visit will be discussed in further detail at your follow- up appointment, if applicable. Discharge Plan Admission Admit Date/Time: 09/16/22 18:03 Primary Reason for Your Visit: chronic respiratory failure Attending Provider: Tre Anderson Primary Care Provider: Rica Padgett Consulting Providers: Adebayo Mckeon Additional Instructions / Restrictions: Check her weights daily. Keep a record of your weights and notify your physician if you put on more than 2 pounds in 1 day or 3 pounds in 1 week. Discharge Orders/Prescriptions Prescriptions: New lisinopril 20 mg Tablet 20 mg PO DAILY Qty: 30 0RF Continued methotrexate sodium 2.5 mg tablet 20 mg PO FR folic acid 0.8 mg capsule 0.8 mg PO DAILY PRN (Reason: WITH WATER PILL) gabapentin 100 mg capsule 100 mg PO TID cholecalciferol (vitamin D3) 25 mcg (1,000 unit) capsule 25 mcg PO DAILY Adult 50 Plus Probiotic 4 billion cell capsule 4,000 mmu cells PO DAILY Rx Instructions: administer with a meal tizanidine 4 MG tablet 8 mg PO QHS Label Comments: MUSCLE SPASMS/PAIN hydroxyzine pamoate 50 MG capsule 100 mg PO QHS Label Comments: ANXIETY omeprazole 40 MG capsule 40 mg PO DAILY Label Comments: ACID REFLEX trazodone 100 MG tablet 100 mg PO QHS Label Comments: DEPRESSION lorazepam 1 MG tablet 1 mg PO TID Label Comments: ANXIETY/ SLEEP levothyroxine 50 MCG tablet 50 mcg PO DAILY simvastatin 20 MG tablet 20 mg PO DAILY atenolol 25 MG tablet 25 mg PO DAILY citalopram [Celexa] 10 mg tablet 40 mg PO QHS leucovorin calcium 10 MG tablet 5 mg PO FR insulin glargine [Lantus Solostar U-100 Insulin] 100 unit/mL (3 mL) Insulin Pen 45 unit SUBCUT QPM diclofenac sodium [Voltaren Arthritis Pain] 1 % Gel 1 ea TOPICAL PRN PRN (Reason: Pain) insulin lispro 100 unit/mL insulin pen See Rx Instructions SUBCUT TID Label Comments: SLIDING SCALE Rx Instructions: 25 subcutaneously three times a day; with meals 12 units with snack oxycodone-acetaminophen [Percocet] 5-325 mg Tablet 1 tab PO Q8H PRN (Reason: Pain) semaglutide 7 mg Tablet 7 mg PO DAILY Label Comments: new medication but has not taken it yet Changed furosemide 40 mg Tablet 40 mg PO DAILY Qty: 30 0RF potassium chloride 8 mEq capsule, extended release 8 meq PO DAILY Qty: 30 0RF Discontinued lisinopril-hydrochlorothiazide 1 TABLET tablet 1 tab PO DAILY Label Comments: blood pressure No Action hydromorphone-bupiv (PF)-NaCl 20 mcg/mL- 0.1 % Prefilled Pump [place] 0 ml continuous epidural DAILY Label Comments: gets changed every 6 to 8 weeks Referrals / Follow Up: Rica Padgett DO [Primary Care Provider] - Within 2 Weeks Deuce Shaw MD [Med Staff - Active Staff] - Within 1 Month Disposition Disposition (needs filled in before D/C Order can be placed): Home, Self Care
--- NOTE | 2022-09-17 15:37 | DS.PCM_ITS ---
Providers Date of Admission: 09/16/22 Primary Care Physician: Dr. Rica Padgett DO Reason For Visit: HYPOXIA Diagnosis Discharge Diagnosis (1) Hypoxia: Status: Acute Code(s): R09.02 - Hypoxemia Plan: CTA reviewed. Reported as negative but does show some Lynn glass opacities on my view. Check COVID-19 and influenza On IV furosemide Echo ordered check ambulatory oxygen Patient will only continue with oxygen 2 L through her bilevel machine. Continue with furosemide 20 mg daily. (2) Obesity hypoventilation syndrome: Status: Acute Code(s): E66.2 - Morbid (severe) obesity with alveolar hypoventilation Plan: Patient's ABG PCO2 was 53 Patient requires volume ventilation and all other alternative therapies, including bilevel, have been considered and ruled out due to the severity of the disease state, weak breathing muscles and potential life-threatening condition including CO2 retention probability of acute exacerbation, patient requires ventilation to be used during the day as needed, addition to every night usage with facemask. Plan Chronic conditions: * obstructive sleep apnea-patient is on CPAP at night, her is going to bring in her machine for use in the hospital. * type 2 diabetes-patient's blood sugars will be monitored, she will remain on her home insulin dosage * chronic pain due to degenerative disc disease of the lumbar spine-patient will remain on her home pain medications * morbid obesity-complicates care, management, recovery, and prognosis * chronic depression-patient will remain on her home medications * hypothyroidism-patient will remain on Synthroid * hyperlipidemia-I elected to keep her off her simvastatin due to the fact that she may not have a lengthy hospital stay. DC home. Follow-up PCP and follow-up with pulmonology. Medications at Discharge Home Medications hydroxyzine pamoate 50 mg capsule 100 mg PO QHS mood 08/30/13 lorazepam 1 mg tablet 1 mg PO TID mood 08/30/13 omeprazole 40 mg capsule,delayed release 40 mg PO DAILY GERD 08/30/13 tizanidine 4 mg tablet 8 mg PO QHS muscle relaxer 08/30/13 trazodone 100 mg tablet 100 mg PO QHS mood 08/30/13 levothyroxine 50 mcg tablet 50 mcg PO DAILY thyroid 10/21/17 simvastatin 20 mg tablet 20 mg PO DAILY cholesterol 10/21/17 atenolol 25 mg tablet 25 mg PO DAILY heart 05/18/19 citalopram 10 mg tablet (Celexa) 40 mg PO QHS mood 12/15/19 folic acid 0.8 mg capsule 0.8 mg PO DAILY PRN WITH WATER PILL 08/19/20 methotrexate sodium 2.5 mg tablet 20 mg PO FR fibromyalgia 08/19/20 leucovorin calcium 10 mg tablet 5 mg PO FR supplement 12/08/20 diclofenac sodium 1 % topical gel (Voltaren Arthritis Pain) 1 ea topical PRN PRN Pain 09/22/21 hydromorphone(PF) 20 mcg/mL-bupivacaine 0.1 %-0.9 % NaCl epidural resv 0 ml continuous epidural DAILY pain 09/22/21 insulin glargine 100 unit/mL (3 mL) subcutaneous pen (Lantus Solostar U-100 Insulin) 45 unit subcut QPM dm 09/22/21 cholecalciferol (vitamin D3) 25 mcg (1,000 unit) capsule 25 mcg PO DAILY supplement 09/13/22 gabapentin 100 mg capsule 100 mg PO TID nerve pain 09/13/22 insulin lispro 100 unit/mL subcutaneous pen See Rx Instructions subcut TID 09/13/22 lactobacillus combination no.9 4 billion cell capsule (Adult 50 Plus Probiotic) 4,000 mmu cells PO DAILY supplement 09/13/22 oxycodone-acetaminophen 5 mg-325 mg tablet (Percocet) 1 tab PO Q8H PRN Pain 09/16/22 semaglutide 7 mg tablet 7 mg PO DAILY DM 09/16/22 furosemide 40 mg tablet 40 mg PO DAILY #30 tabs 09/17/22 lisinopril 20 mg tablet 20 mg PO DAILY #30 tabs 09/17/22 potassium chloride 8 mEq capsule,extended release 8 meq PO DAILY #30 caps 09/17/22 Hospital Course Operations None Procedures 2-D Echocardiogram Summary of Care Provided Minutes Spent on Discharge: 50 Weight / BMI Weight Weight: 121.971 kg Body Mass Index (BMI) 46.1 ABG / Lab / Microbiology Data Result Diagrams: 09/16/22 14:10 09/17/22 06:20 Laboratory: Laboratory Results - last 24 hr 09/16/22 16:45: Urine Color Yellow, Urine Clarity Clear, Urine pH 7.0, Ur Specific Mathews 1.005, Urine Protein Negative, Urine Glucose (UA) Normal, Urine Ketones Negative, Urine Occult Blood Negative, Urine Nitrite Negative, Urine Bilirubin Negative, Urine Urobilinogen Normal, Ur Leukocyte Esterase Negative, Urine RBC 0 SEEN, Urine WBC 0 SEEN, Ur Squamous Epith Cells 0-5 SEEN, Urine Bacteria 0 SEEN, Urine Mucus 0 SEEN 09/16/22 21:06: POC Glucose 196 H 09/17/22 06:20: Sodium 139, Potassium 3.6, Chloride 97 L, Carbon Dioxide 32.0, Anion Gap 10, BUN 16, Creatinine 0.87, Estim Creat Clear Calc 56.41, Est GFR (MDRD) Af Amer 84, Est GFR (MDRD) Non-Af 70, BUN/Creatinine Ratio 18.4, Glucose 146 H, Calcium 8.8 09/17/22 08:11: POC Glucose 124 H 09/17/22 11:47: POC Glucose 129 H Microbiology: Microbiology 09/17/22 11:41 Nasal Secretion SARS-CoV-2 & FLU Antigen (Rapid) - Final ABG: ABG 09/16/22 17:27 Specimen Type ART Sample Site L Radial pH 7.39 Bicarbonate Actual 31.9 H Total CO2 34 Base Excess 7 H O2 Saturation 95 ABG pCO2 53.2 H ABG pO2 79 Francisco Test Positive O2 Delivery Device Cannula Liter Flow 2.0 Radiography Diagnostic Testing: Radiology Impression Chest CTA 09/16/22 14:30 IMPRESSION: No demonstrated pulmonary embolism or arterial dissection. Electronically Signed: Celestine Martinez MD at 16:18 EST Reading Location ID and State: [facility] / [place] , Service support , Echocardiogram 09/16/22 19:21 Interpretation Summary Normal LV size. Left ventricular systolic function is normal. The estimated ejection fraction is 55 %. Stage 1 diastolic dysfunction. The left atrium is mildly enlarged. Pulmonary artery systolic pressure is 30 mmHg. Ordering Physician: Adebayo Mckeon Referring Physician: Rica Padgett Performed By: Niya Espinal, HAO, RVT D/C Instructions Discharge Diet: 1999 Calorie Control Diet Meaningful Use Info Meaningful Use Diagnoses (Choose all that apply): None applicable Discharge Plan Admission Admit Date/Time: 09/16/22 18:03 Primary Reason for Your Visit: chronic respiratory failure Attending Provider: Tre Anderson Primary Care Provider: Rica Padgett Consulting Providers: Adebayo Mckeon Instructions Additional Instructions / Restrictions: Check her weights daily. Keep a record of your weights and notify your physician if you put on more than 2 pounds in 1 day or 3 pounds in 1 week. Discharge Orders/Prescriptions Prescriptions: New lisinopril 20 mg Tablet 20 mg PO DAILY Qty: 30 0RF Continued methotrexate sodium 2.5 mg tablet 20 mg PO FR folic acid 0.8 mg capsule 0.8 mg PO DAILY PRN (Reason: WITH WATER PILL) gabapentin 100 mg capsule 100 mg PO TID cholecalciferol (vitamin D3) 25 mcg (1,000 unit) capsule 25 mcg PO DAILY Adult 50 Plus Probiotic 4 billion cell capsule 4,000 mmu cells PO DAILY Rx Instructions: administer with a meal tizanidine 4 MG tablet 8 mg PO QHS Label Comments: MUSCLE SPASMS/PAIN hydroxyzine pamoate 50 MG capsule 100 mg PO QHS Label Comments: ANXIETY omeprazole 40 MG capsule 40 mg PO DAILY Label Comments: ACID REFLEX trazodone 100 MG tablet 100 mg PO QHS Label Comments: DEPRESSION lorazepam 1 MG tablet 1 mg PO TID Label Comments: ANXIETY/ SLEEP levothyroxine 50 MCG tablet 50 mcg PO DAILY simvastatin 20 MG tablet 20 mg PO DAILY atenolol 25 MG tablet 25 mg PO DAILY citalopram [Celexa] 10 mg tablet 40 mg PO QHS leucovorin calcium 10 MG tablet 5 mg PO FR insulin glargine [Lantus Solostar U-100 Insulin] 100 unit/mL (3 mL) Insulin Pen 45 unit SUBCUT QPM diclofenac sodium [Voltaren Arthritis Pain] 1 % Gel 1 ea TOPICAL PRN PRN (Reason: Pain) insulin lispro 100 unit/mL insulin pen See Rx Instructions SUBCUT TID Label Comments: SLIDING SCALE Rx Instructions: 25 subcutaneously three times a day; with meals 12 units with snack oxycodone-acetaminophen [Percocet] 5-325 mg Tablet 1 tab PO Q8H PRN (Reason: Pain) semaglutide 7 mg Tablet 7 mg PO DAILY Label Comments: new medication but has not taken it yet Changed furosemide 40 mg Tablet 40 mg PO DAILY Qty: 30 0RF potassium chloride 8 mEq capsule, extended release 8 meq PO DAILY Qty: 30 0RF Discontinued lisinopril-hydrochlorothiazide 1 TABLET tablet 1 tab PO DAILY Label Comments: blood pressure No Action hydromorphone-bupiv (PF)-NaCl 20 mcg/mL- 0.1 % Prefilled Pump Bonham 0 ml continuous epidural DAILY Label Comments: gets changed every 6 to 8 weeks Referrals / Follow Up: Rica Padgett DO [Primary Care Provider] - Within 2 Weeks Deuce Shaw MD [Med Staff - Active Staff] - Within 1 Month Disposition Disposition (needs filled in before D/C Order can be placed): Home, Self Care Charges/Coding Visit Charges Inpatient E&M: 30577 Disch Hosp >30min
[2022-09-17 18:10] VITALS: BP 119/65; PULSE 75; RESP 16; TEMP 36.7; O2SAT 901
== END 2022-09-17 18:47 | disposition home or self-care (01) ==
LOC: ED 17:13 → MS3 17:45
PROVIDERS: Admitting Provider Internal Medicine; Emergency Provider Emergency Medicine; PCP Family Medicine
DX: R09.02 Hypoxemia (principal); E11.42 Type 2 diabetes mellitus with diabetic polyneuropathy; Z68.42 Body mass index [BMI] 45.0-49.9, adult; E66.2 Morbid (severe) obesity with alveolar hypoventilation; Z79.4 Long term (current) use of insulin; G47.33 Obstructive sleep apnea (adult) (pediatric); Z87.891 Personal history of nicotine dependence; I10 Essential (primary) hypertension; R06.02 Shortness of breath; F43.10 Post-traumatic stress disorder, unspecified; E78.00 Pure hypercholesterolemia, unspecified; K21.9 Gastro-esophageal reflux disease without esophagitis; E03.9 Hypothyroidism, unspecified; M79.7 Fibromyalgia; Z79.899 Other long term (current) drug therapy; Z79.890 Hormone replacement therapy; Z99.81 Dependence on supplemental oxygen; Z86.718 Personal history of other venous thrombosis and embolism; Z86.711 Personal history of pulmonary embolism; F32.A Depression, unspecified; G89.29 Other chronic pain; M51.36 Other intervertebral disc degeneration, lumbar region; Z96.9 Presence of functional implant, unspecified
CPT/HCPCS: 36415; 36600; 71275; 80048; 81001; 82803; 82962; 83880; 84484; 85025; 87428; 93005; 93306; 96372; 96374; 96376; 97802; 99221; 99285; Q9967; A4216; G0378; J1940

== ENCOUNTER → 2022-09-20 | Outpatient (CLI) | payer MEDICARE, OTHER, SELFPAY ==
[2022-09-20 14:00] LABS: BNP,B-Type NATRIURETIC PEPTIDE 14.9 pg/mL (0-100)
== END | disposition home or self-care (01) ==
PROVIDERS: PCP Family Medicine; Referring Provider Internal Medicine Pulmonary Disease; Visit Provider Internal Medicine Pulmonary Disease
DX: R06.02 Shortness of breath (principal)
CPT/HCPCS: 36415; 83880

== ENCOUNTER → 2022-10-01 | Outpatient (CLI) | payer MEDICARE, OTHER, SELFPAY ==
[2022-10-01 12:30] LABS: Amphetamine Urine VISTA NEGATIVE (<1000 ng/mL); Barbiturate Urine VISTA NEGATIVE (< 200 ng/mL); Benzodiazepine Urine VISTA NEGATIVE (< 200 ng/mL); Cocaine Urine VISTA NEGATIVE (< 300 ng/mL); Ecstacy Urine VISTA NEGATIVE (< 500 ng/mL); Methadone Urine VISTA NEGATIVE (< 300 ng/mL); PCP Urine VISTA NEGATIVE (< 25 ng/mL); THC Urine VISTA NEGATIVE (< 50 ng/mL); Vista UDS pH Range 5
== END | disposition home or self-care (01) ==
PROVIDERS: PCP Family Medicine; Visit Provider Family Medicine
DX: Z79.899 Other long term (current) drug therapy (principal)
CPT/HCPCS: 80307

== ENCOUNTER → 2022-11-01 | Outpatient (CLI) | payer MEDICARE, OTHER, SELFPAY ==
[2022-11-01 08:51] LABS: Base Excess 1 mmol/L (-2 to +2); Bicarbonate 25.4 mmol/L (22-26); Blood Gas Specimen Type ART; FI02 21; PO2 77 mmHG (75-100); SITE L Radial; SO2 95 % (95-99); Total Carbon Dioxide 27 mmol/L; pCO2 39.8 mmHg (35-45); pH 7.41 (7.35-7.45)
== END | disposition home or self-care (01) ==
LOC: PSN 08:17
PROVIDERS: PCP Family Medicine; Visit Provider Internal Medicine Pulmonary Disease
DX: R09.02 Hypoxemia (principal); I27.20 Pulmonary hypertension, unspecified
CPT/HCPCS: 36600; 82803

== ENCOUNTER → 2023-03-15 | Outpatient (CLI) | payer MEDICARE, OTHER, SELFPAY ==
[2023-03-15 14:55] LABS: Amphetamine Urine VISTA NEGATIVE (<1000 ng/mL); Barbiturate Urine VISTA NEGATIVE (< 200 ng/mL); Benzodiazepine Urine VISTA NEGATIVE (< 200 ng/mL); Cocaine Urine VISTA NEGATIVE (< 300 ng/mL); Ecstacy Urine VISTA NEGATIVE (< 500 ng/mL); Methadone Urine VISTA NEGATIVE (< 300 ng/mL); PCP Urine VISTA NEGATIVE (< 25 ng/mL); THC Urine VISTA NEGATIVE (< 50 ng/mL); Vista UDS pH Range 5
== END | disposition home or self-care (01) ==
LOC: LAB 13:29
PROVIDERS: PCP Family Medicine; Referring Provider Anesthesiology Pain Medicine; Visit Provider Anesthesiology Pain Medicine
DX: F11.20 Opioid dependence, uncomplicated (principal)
CPT/HCPCS: 80307

== ENCOUNTER 2023-05-14 12:04 | Emergency (ER) | payer MEDICARE, OTHER, SELFPAY ==
[2023-05-14 12:06] VITALS: BP 147/61; PULSE 68; RESP 18; TEMP 36.2; O2SAT 97; BMI 29.5
--- NOTE | 2023-05-14 12:25 | RAD_ITS ---
HISTORY: trauma, pain. TECHNIQUE: XR Ribs Unilateral W/ PA Chest Min 3 Views. 5 images. COMPARISON: 01/25/2022. FINDINGS: CARDIOMEDIASTINAL BORDERS: Cardiac silhouette again mildly enlarged. Mediastinal contour unremarkable. LUNGS: Radiographically clear. PLEURA: No pleural effusion or pneumothorax seen. OSSEOUS STRUCTURES: Limited evaluation of the right lower ribs laterally due to implanted device. Mild degenerative change. Postoperative changes of the lumbar spine. No acute displaced rib fracture identified. RAD/Ribs Uni Min 3V w/PA Chest IMPRESSION: No acute abnormality identified. Electronically Signed: Ekaterina Lemons MD at 13:40 EDT ,
--- NOTE | 2023-05-14 12:25 | RAD_ITS ---
HISTORY: trauma, pain. TECHNIQUE: XR Spine Lumbar 2 or 3 Views. COMPARISON: CT 07/09/2019. FINDINGS: VERTEBRAE: Vertebral body heights preserved. L3-5 posterior spinal fusion hardware with decompressive laminectomies. Screw transfixing the right sacroiliac joint again noted. ALIGNMENT: No significant anterior or posterior subluxation. Mild levoscoliosis again noted. INTERVERTEBRAL DISCS: Degenerative endplate changes with intervertebral disc space narrowing and osteophytes at multiple levels. SOFT TISSUES: Thoracic spinal electrode noted. RAD/Lumbar Spine 2 or 3 Views IMPRESSION: No acute fracture or dislocation identified in the lumbar spine. Postoperative and degenerative change. Scoliosis. Electronically Signed: Ekaterina Lemons MD at 13:36 EDT ,
--- NOTE | 2023-05-14 12:25 | RAD_ITS ---
HISTORY: trauma, pain. TECHNIQUE: XR Hip Unilateral with Pelvis when performed; 2-3 Views. COMPARISON: CT 07/09/2019. FINDINGS: OSSEOUS STRUCTURES: No acute displaced fracture identified. Note that overlapping bowel shadows may obscure osseous detail. Fixation hardware and screw tract in the right sacroiliac joint again seen. L3-5 lumbar spinal fusion hardware at the decompressive laminectomies. Mild enthesopathy of the greater trochanters. Screw tracks in the distal femoral diaphysis. JOINT SPACES: No dislocation. Mild degenerative changes of the hips. SOFT TISSUES: Spinal electrode noted. RAD/HIP, UNI W/ Pelvis 2-3 Views IMPRESSION: No acute displaced fracture or dislocation identified. Electronically Signed: Ekaterina Lemons MD at 13:38 EDT ,
[2023-05-14] MEDS: oxyCODONE 5 MG Tablet PO (12:36)
--- NOTE | 2023-05-14 14:01 | EDS_ITS ---
HPI History of Present Illness Chief Complaint: Fall Informant: patient Onset/Context/Timing Onset: Yesterday Location: Right lower back Maximum Severity: Severe Narrative Narrative: Patient had a mechanical fall on uneven deck yesterday. She complains of pain to her right lower back. Pain is severe. No neurologic symptoms like weakness or numbness. No abdominal pain or GI symptoms. No other injuries or complaints. [facility] Medical History Acromioclavicular arthrosis Ambulates with cane Anxiety Anxiety disorder, unspecified Arthritis ASV (adaptive servo-ventilation) use counseling Atrophic vaginitis Back pain Bone spur calcium calcifications Chronic pain Depression Depressive 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 Diabetes Dietary restriction Difficulty balancing DJD (degenerative joint disease) of lumbar spine DVT (deep venous thrombosis) Fatigue Fibromyalgia Former smoker Gait instability Gastric reflux Gastroesophageal reflux disease High cholesterol History of diabetes mellitus History of diverticulitis History of DVT (deep vein thrombosis) History of edema History of neuropathy History of pain when walking History of pulmonary embolus (PE) History of spinal stenosis History of stress test Hypertension Implantable intrathecal infusion pump present Insulin dependent diabetes mellitus Leg cramps Limb weakness Migraine headache 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 Neck pain Normal stress echocardiogram Obesity Obesity hypoventilation syndrome On home oxygen therapy Osteoarthritis Osteoarthritis PTSD (post-traumatic stress disorder) Shortness of breath on exertion Shoulder pain Strain of shoulder, left Syncope Thyroid disease Wears glasses Home Medications hydroxyzine pamoate 50 mg capsule 100 mg PO QHS mood 08/30/13 [History Last Taken 09/15/22] lorazepam 1 mg tablet 1 mg PO TID mood 08/30/13 [History Last Taken 09/15/22] omeprazole 40 mg capsule,delayed release 40 mg PO DAILY GERD 08/30/13 [History Last Taken 09/15/22] trazodone 100 mg tablet 100 mg PO QHS mood 08/30/13 [History Last Taken 09/15/22] levothyroxine 50 mcg tablet 50 mcg PO DAILY thyroid 10/21/17 [History Last Taken 09/15/22] simvastatin 20 mg tablet 20 mg PO DAILY cholesterol 10/21/17 [History Last Taken 09/15/22] atenolol 25 mg tablet 25 mg PO DAILY heart 05/18/19 [History Last Taken 09/15/22] folic acid 0.8 mg capsule 0.8 mg PO DAILY PRN WITH WATER PILL 08/19/20 [History Last Taken Unknown] methotrexate sodium 2.5 mg tablet 20 mg PO FR fibromyalgia 08/19/20 [History Last Taken 09/10/22] leucovorin calcium 10 mg tablet 5 mg PO FR supplement 12/08/20 [History Last Taken 09/10/22] diclofenac sodium 1 % topical gel (Voltaren Arthritis Pain) 1 ea topical PRN PRN Pain 09/22/21 [History Last Taken 3 Days Ago ~09/13/22] insulin glargine 100 unit/mL (3 mL) subcutaneous pen (Lantus Solostar U-100 Insulin) 45 unit subcut QPM dm 09/22/21 [History Last Taken 09/15/22] cholecalciferol (vitamin D3) 25 mcg (1,000 unit) capsule 25 mcg PO DAILY supplement 09/13/22 [History Last Taken 09/15/22] insulin lispro 100 unit/mL subcutaneous pen See Rx Instructions subcut TID 09/13/22 [History Last Taken 09/16/22] lactobacillus combination no.9 4 billion cell capsule (Adult 50 Plus Probiotic) 4,000 mmu cells PO DAILY supplement 09/13/22 [History Last Taken 09/15/22] oxycodone-acetaminophen 5 mg-325 mg tablet (Percocet) 1 tab PO Q8H PRN Pain 09/16/22 [History Last Taken 09/15/22] lisinopril 20 mg tablet 20 mg PO DAILY #30 tabs 09/17/22 [Rx Last Taken Unknown] potassium chloride 8 mEq capsule,extended release 8 meq PO DAILY #30 caps 09/17/22 [Rx Last Taken Unknown] flash glucose sensor (FreeStyle Prema 2 Sensor kit) #6 ea 11/09/22 [Rx Last Taken Unknown] clonidine HCl 0.1 mg tablet 0.1 mg PO Q8H 12/02/22 [History Last Taken Unknown] tizanidine 4 mg tablet 1 mg PO Q8H muscle relaxer 12/02/22 [History Last Taken Unknown] aspirin 81 mg tablet,delayed release (Adult Low Dose Aspirin) 81 mg PO DAILY 03/15/23 [History Last Taken Unknown] gabapentin 100 mg capsule 100 mg PO TID 90 days #270 caps 03/15/23 [Rx Last Taken Unknown] meloxicam 7.5 mg tablet mg PO BID 03/15/23 [History Last Taken Unknown] escitalopram oxalate 20 mg tablet 20 mg PO DAILY #90 tabs 04/12/23 [Rx Last Taken Unknown] Allergy/AdvReac Type Severity Reaction Status Date / Time niacin Allergy Itching Verified 05/14/23 12:05 metformin AdvReac Intermediate Diarrhea Verified 05/14/23 12:05 cephalexin [From Keflex] AdvReac Other Verified 05/14/23 12:05 Family History Sister Breast cancer Diabetes Kidney disease Other Arthritis Heart disease Surgical History History of back surgery History of carpal tunnel release History of total right knee replacement Hx of arthroscopic knee surgery Hx of hysterectomy hx of plantar fasciotomy Hx of surgical procedure Hx of total knee replacement Social History Smoking Status: Former smoker alcohol intake: never substance use type: does not use caffeine: No what type of physical activity do you participate in: none seatbelt use: always do you feel safe at home: Yes additional social history: [id number] at [employer] Patient is disabled ROS ROS ED Constitutional Constitutional ED: Denies chills or fever(s) Eyes Eyes: Denies blurry vision ENT ENT ED: Denies ear pain Cardiovascular Cardiovascular: Denies chest pain Respiratory/Chest Respiratory/Chest: Denies dyspnea Gastrointestinal Gastrointestinal: Denies abdominal pain Genitourinary Genitourinary ED: Denies dysuria, hematuria or urinary frequency Musculoskeletal Musculoskeletal: Reports arthralgias, back pain and myalgias; Denies neck pain Integumentary Denies abscess or Abrasions Neurologic Neurologic: Denies headache(s), paresthesias or weakness Psychiatric Psychiatric: Denies anxiety Endocrine Endocrinology: Denies cold intolerance Allergic/Immunologic Allergic/Immunologic ED: Denies mouth swelling EXAM Physical Exam Const Vital Signs: 05/14/23 12:06 05/14/23 12:10 Temperature 97.2 F L Temperature Source Temporal Pulse Rate 68 Respiratory Rate 18 Respiratory Effort Normal Non-Labored Respiratory Depth Normal Respiratory Pattern Normal Blood Pressure 147/61 H Blood Pressure Mean 89 Pulse Ox 97 Oxygen Delivery Method Room Air Room Air Positive well nourished and well developed General Appearance ED: well developed HEENT Reports moist mucous membranes Eyes EOMs intact bilaterally Neck supple Resp normal respiratory effort and clear to auscultation bilaterally Cardio regular rate and regular rhythm GI normal to inspection, nondistended, normoactive bowel sounds, non-tender and non-distended Back/Spine Back/Spine Narrative: Right inferior and posterior rib tenderness without crepitus or abnormal motion. Flank and CVA otherwise nontender. Tender to palpation diffusely over the lumbosacral spine and right pelvis. Extremity Extremity Narrative: Leg exam shows no shortening. Negative logroll. Neurovascular intact Neuro oriented x3 Psych mental status grossly normal Skin no rashes or lesions noted MDM MDM MDM Narrative Medical decision making narrative: I x-rayed her injured areas including her chest, right ribs, right hip and pelvis, and lumbosacral spine. I reviewed the x-rays. No acute abnormalities noted. She has chronic and postoperative changes only. Patient received pain medicine while awaiting results. No new, different, or worsening symptoms on reevaluation. Nothing to suggest GI, , vascular pathology based on her exam. These etiologies were also considered in the differential. Patient will rest, ice, use [id number] remedies and she has a prescription for muscle relaxers. Follow-up with primary care. Return for any new or worsening issues. Disposition is discharged home. Impression #1 right lower back injury, contusion Radiography Diagnostic Testing: Clinical Impression(s) from Imaging Studies Hip/Pelvis X-Ray 05/14/23 12:25 IMPRESSION: No acute displaced fracture or dislocation identified. Electronically Signed: Ekaterina Lemons MD at 13:38 EDT , Lumbar Spine X-Ray 05/14/23 12:25 IMPRESSION: No acute fracture or dislocation identified in the lumbar spine. Postoperative and degenerative change. Scoliosis. Electronically Signed: Ekaterina Lemons MD at 13:36 EDT , Ribs w/Chest X-Ray 05/14/23 12:25 IMPRESSION: No acute abnormality identified. Electronically Signed: Ekaterina Lemons MD at 13:40 EDT Reading Location ID and State: [facility] / [place] Tel , Service support , Discharge Plan Triage Chief Complaint: Fall ED Provider: Getachew Avila Dx/Rx/DC Orders Instructions: ED Mechanical Fall Prescriptions: No Action methotrexate sodium 2.5 mg tablet 20 mg PO FR folic acid 0.8 mg capsule 0.8 mg PO DAILY PRN (Reason: WITH WATER PILL) cholecalciferol (vitamin D3) 25 mcg (1,000 unit) capsule 25 mcg PO DAILY Adult 50 Plus Probiotic 4 billion cell capsule 4,000 mmu cells PO DAILY Rx Instructions: administer with a meal clonidine HCl 0.1 mg tablet 0.1 mg PO Q8H Patient Comments: take 1 tablet by mouth three times a day if needed for anxiety or TREMOR(S) aspirin [Adult Low Dose Aspirin] 81 mg tablet,delayed release (DR/EC) 81 mg PO DAILY meloxicam 7.5 mg tablet PO BID Patient Comments: take 1 tablet by mouth twice a day gabapentin 100 mg capsule 100 mg PO TID 90 Days Qty: 270 2RF hydroxyzine pamoate 50 MG capsule 100 mg PO QHS Patient Comments: ANXIETY omeprazole 40 MG capsule 40 mg PO DAILY Patient Comments: ACID REFLEX trazodone 100 MG tablet 100 mg PO QHS Patient Comments: DEPRESSION lorazepam 1 MG tablet 1 mg PO TID Patient Comments: ANXIETY/ SLEEP tizanidine 4 mg tablet 1 mg PO Q8H Patient Comments: MUSCLE SPASMS/PAIN levothyroxine 50 MCG tablet 50 mcg PO DAILY simvastatin 20 MG tablet 20 mg PO DAILY atenolol 25 MG tablet 25 mg PO DAILY leucovorin calcium 10 MG tablet 5 mg PO FR insulin glargine [Lantus Solostar U-100 Insulin] 100 unit/mL (3 mL) Insulin Pen 45 unit SUBCUT QPM diclofenac sodium [Voltaren Arthritis Pain] 1 % Gel 1 ea TOPICAL PRN PRN (Reason: Pain) insulin lispro 100 unit/mL insulin pen See Rx Instructions SUBCUT TID Patient Comments: SLIDING SCALE Rx Instructions: 25 subcutaneously three times a day; with meals 12 units with snack oxycodone-acetaminophen [Percocet] 5-325 mg Tablet 1 tab PO Q8H PRN (Reason: Pain) lisinopril 20 mg Tablet 20 mg PO DAILY Qty: 30 0RF potassium chloride 8 mEq capsule, extended release 8 meq PO DAILY Qty: 30 0RF (DME) FreeStyle Prema 2 Sensor Kit See Rx Instructions .Route Qty: 6 3RF Rx Instructions: 1 sensor q 14 days escitalopram oxalate 20 mg tablet 20 mg PO DAILY Qty: 90 1RF Primary Care Provider: Rica Padgett Referrals: Rica Padegtt DO [Primary Care Provider] - Disposition Disposition: Home, Self Care
[2023-05-14 14:10] VITALS: BP 149/66; PULSE 64; RESP 16; O2SAT 94
== END 2023-05-14 14:21 | disposition home or self-care (01) ==
PROVIDERS: Emergency Provider Emergency Medicine; PCP Family Medicine; Visit Provider Emergency Medicine
DX: S20.221A Contusion of right back wall of thorax, initial encounter (principal); E11.40 Type 2 diabetes mellitus with diabetic neuropathy, unspecified; Z79.4 Long term (current) use of insulin; S29.9XXA Unspecified injury of thorax, initial encounter; S79.911A Unspecified injury of right hip, initial encounter; S39.93XA Unspecified injury of pelvis, initial encounter; W19.XXXA Unspecified fall, initial encounter; I10 Essential (primary) hypertension; E78.00 Pure hypercholesterolemia, unspecified; Z79.82 Long term (current) use of aspirin; Z79.899 Other long term (current) drug therapy; Z87.891 Personal history of nicotine dependence
CPT/HCPCS: 71101; 72100; 73502; 99284

== ENCOUNTER → 2023-06-27 | Outpatient (CLI) | payer MEDICARE, OTHER, SELFPAY ==
[2023-06-27 16:09] LABS: Absolute Lymphocyte Count 2.61 X10^3/uL (0.83-4.51); Absolute Neutrophil Count 4.4 X10^3/uL (2.0-7.7); Basophil# 0.03 X10^3/uL; Basophil% 0.4 % (0-1); Eosinophil# 0.13 X10^3/uL; Eosinophils% 1.7 % (0-5); Hematocrit 38.7 % (37-47); Hemoglobin 12.5 g/dL (12.0-15.0); Lymphocyte # 2.61 X10^3/ul (0.83-4.51); Lymphocyte % 34.3 % (19-41); Mean Corp Hgb Conc 32.3 g/dL (32-36); Mean Corpuscular Hgb 28.9 pg (27.0-32.0); Mean Corpuscular Volume 89.4 fL (81-99); Monocyte# 0.44 X10^3/uL; Monocyte% 5.8 % (0-10); NRBC Flagged by Analyzer 0 % (0-5); Neutrophil # 4.36 X10^3/uL (2.7-7.7); Neutrophil % 57.1 % (47-70); Platelet Count 250 K/mm3 (150-450); RBC Distribution Width SD 49.1 fl (35.1-43.9); Red Blood Count 4.33 M/mm3 (4.2-5.4); White Blood Count 7.6 K/mm3 (4.4-11.0)
[2023-06-27 16:40] LABS: ALB/GLOB Ratio 0.9 RATIO (0.9-2.4); AST(SGOT) 57 U/L (15-37); Alanine Aminotransfer ALT/SGPT 72 U/L (13-56); Albumin, Serum 3.1 g/dL (3.2-5.0); Alkaline Phosphatase 110 U/L (45-117); Anion Gap 5 (5-15); BUN 11 mg/dL (7-18); BUN/Creat Ratio 15.2 RATIO (10-20); Calcium,Total 8.8 mg/dL (8.5-10.1); Chloride 107 mmol/L (98-107); Creatinine, Serum 0.72 mg/dL (0.55-1.02); EST Glomerular Filtration Rate 86 mL/min (>60); Est Glom Filt Rate - Afr Amer 104 mL/min (>60); Globulin 3.6 g/dL (2.2-4.2); Glucose 158 mg/dL (74-106); Potassium 3.9 mmol/L (3.5-5.1); Protein, Total 6.7 g/dL (6.4-8.2); Sodium Level 139 mmol/L (136-145)
== END | disposition home or self-care (01) ==
PROVIDERS: PCP Nurse Practitioner Family; Referring Provider Nurse Practitioner Family; Visit Provider Nurse Practitioner Family
DX: R19.7 Diarrhea, unspecified (principal)
CPT/HCPCS: 36415; 80053; 83630; 85025; 87493

== ENCOUNTER → 2023-06-29 | Outpatient (CLI) | payer MEDICARE, OTHER, SELFPAY ==
--- NOTE | 2023-06-29 16:08 | RAD_ITS ---
EXAM: XR ABDOMEN, 1 VIEW CLINICAL INDICATION: DIARRHEA TECHNIQUE: Frontal supine view of the abdomen/pelvis. COMPARISON: No relevant prior studies available. FINDINGS: GASTROINTESTINAL TRACT: Normal bowel gas pattern. ORGANS: No organomegaly. BONES/JOINTS: Postoperative and degenerative changes of the lumbar spine. TUBES, LINES AND DEVICES: Intraspinal stimulator wire extends to the T12 level. RAD/Abdomen Single View IMPRESSION: No acute abdominal findings. Electronically Signed: Dru Stanford MD at 16:41 EDT ,
== END | disposition home or self-care (01) ==
LOC: RAD 16:00
PROVIDERS: PCP Family Medicine; Referring Provider Nurse Practitioner Family; Visit Provider Nurse Practitioner Family
DX: R19.7 Diarrhea, unspecified (principal); R10.32 Left lower quadrant pain
CPT/HCPCS: 74018

== ENCOUNTER → 2023-07-29 | Outpatient (CLI) | payer MEDICARE, OTHER, SELFPAY ==
--- NOTE | 2023-07-29 13:35 | BI_ITS ---
MAMMOGRAPHY - BILATERAL SCREENING REASON FOR EXAM: Female, 63 years old. Routine annual screening examination. PERTINENT HISTORY: Sister with breast cancer. Prior left stereotactic breast biopsy. TECHNIQUE: Digital bilateral breast ang[place] (3D mammographic acquisition) in the CC and MLO projections. 2-D mediolateral oblique (MLO) and craniocaudad (CC) views of both breasts were obtained. CAD: Full Field Digital Mammography with Computer Added Detection was performed. COMPARISON: Comparison is made with prior study August 19, 2020 and October 30, 2018. FINDINGS: Breast Composition: The breasts are heterogeneously dense, which may obscure small masses. There are no dominant masses or suspicious calcifications. A tissue clip marker is once again seen in the deep upper medial aspect of the right breast. No other significant abnormalities are identified. There has been no significant change since the prior study. BI/SCRN MAMM (CAD)W/ANGELES BILAT IMPRESSION: Stable bilateral screening mammogram. Yearly follow-up mammogram recommended. (A) ASSESSMENT CATEGORY: BIRADS Category 2: Benign. A letter regarding these results will be sent to the patient by the facility within 30 days. Approximately 10% of breast cancers are not detected by mammography. A normal mammogram should not delay biopsy of a clinically suspicious abnormality. [id number] Electronically Signed: Stan Corral MD at 14:55 EST ,
== END | disposition home or self-care (01) ==
LOC: OPBI 13:34
PROVIDERS: PCP Family Medicine; Referring Provider Family Medicine; Visit Provider Family Medicine
DX: Z12.31 Encounter for screening mammogram for malignant neoplasm of breast (principal); Z80.3 Family history of malignant neoplasm of breast
CPT/HCPCS: 77063; 77067

== ENCOUNTER 2023-09-08 21:52 | Emergency (ER) | payer MEDICARE, OTHER, SELFPAY ==
[2023-09-08 21:53] VITALS: BP 156/94; PULSE 55; RESP 16; TEMP 36.4; O2SAT 96; BMI 40.3
--- NOTE | 2023-09-08 22:42 | EX.ED.DYSGE1 ---
HPI History of Present Illness Chief Complaint: Abd Pain [facility] Medical History Acromioclavicular arthrosis Ambulates with cane Anxiety Anxiety disorder, unspecified Arthritis ASV (adaptive servo-ventilation) use counseling Atrophic vaginitis Back pain Bone spur calcium calcifications Chronic pain Depression Depressive 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 Diabetes Dietary restriction Difficulty balancing DJD (degenerative joint disease) of lumbar spine DVT (deep venous thrombosis) Fatigue Fibromyalgia Former smoker Gait instability Gastric reflux Gastroesophageal reflux disease High cholesterol History of diabetes mellitus History of diverticulitis History of DVT (deep vein thrombosis) History of edema History of neuropathy History of pain when walking History of pulmonary embolus (PE) History of spinal stenosis History of stress test Hypertension Implantable intrathecal infusion pump present Insulin dependent diabetes mellitus Leg cramps Limb weakness Migraine headache 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 Neck pain Normal stress echocardiogram Obesity Obesity hypoventilation syndrome On home oxygen therapy Osteoarthritis Osteoarthritis PTSD (post-traumatic stress disorder) Shortness of breath on exertion Shoulder pain Strain of shoulder, left Syncope Thyroid disease Wears glasses Home Medications omeprazole 40 mg capsule,delayed release 40 mg PO DAILY GERD 08/30/13 [History Last Taken 09/15/22] trazodone 100 mg tablet 100 mg PO QHS mood 08/30/13 [History Last Taken 09/15/22] levothyroxine 50 mcg tablet 50 mcg PO DAILY thyroid 10/21/17 [History Last Taken 09/15/22] simvastatin 20 mg tablet 20 mg PO DAILY cholesterol 10/21/17 [History Last Taken 09/15/22] atenolol 25 mg tablet 25 mg PO DAILY heart 05/18/19 [History Last Taken 09/15/22] folic acid 0.8 mg capsule 0.8 mg PO DAILY PRN WITH WATER PILL 08/19/20 [History Last Taken Unknown] methotrexate sodium 2.5 mg tablet 20 mg PO FR fibromyalgia 08/19/20 [History Last Taken 09/10/22] leucovorin calcium 10 mg tablet 5 mg PO FR supplement 12/08/20 [History Last Taken 09/10/22] diclofenac sodium 1 % topical gel (Voltaren Arthritis Pain) 1 ea topical PRN PRN Pain 09/22/21 [History Last Taken 3 Days Ago ~09/13/22] insulin glargine 100 unit/mL (3 mL) subcutaneous pen (Lantus Solostar U-100 Insulin) 45 unit subcut QPM dm 09/22/21 [History Last Taken 09/15/22] cholecalciferol (vitamin D3) 25 mcg (1,000 unit) capsule 25 mcg PO DAILY supplement 09/13/22 [History Last Taken 09/15/22] insulin lispro 100 unit/mL subcutaneous pen See Rx Instructions subcut TID 09/13/22 [History Last Taken 09/16/22] lactobacillus combination no.9 4 billion cell capsule (Adult 50 Plus Probiotic) 4,000 mmu cells PO DAILY supplement 09/13/22 [History Last Taken 09/15/22] oxycodone-acetaminophen 5 mg-325 mg tablet (Percocet) 1 tab PO Q8H PRN Pain 09/16/22 [History Last Taken 09/15/22] lisinopril 20 mg tablet 20 mg PO DAILY #30 tabs 09/17/22 [Rx Last Taken Unknown] potassium chloride 8 mEq capsule,extended release 8 meq PO DAILY #30 caps 09/17/22 [Rx Last Taken Unknown] clonidine HCl 0.1 mg tablet 0.1 mg PO Q8H 12/02/22 [History Last Taken Unknown] tizanidine 4 mg tablet 1 mg PO Q8H muscle relaxer 12/02/22 [History Last Taken Unknown] flash glucose sensor (FreeStyle Prema 2 Sensor kit) #6 ea 09/05/23 [Rx Last Taken Unknown] escitalopram oxalate 20 mg tablet 20 mg PO DAILY #90 tabs 09/07/23 [Rx Last Taken Unknown] gabapentin 100 mg capsule 100 mg PO TID 90 days #270 caps 09/07/23 [Rx Last Taken Unknown] hydroxyzine pamoate 50 mg capsule 50 mg PO QHS mood #30 caps 09/07/23 [Rx Last Taken Unknown] lorazepam 1 mg tablet 1 mg PO BID mood #60 tabs 09/07/23 [Rx Last Taken Unknown] Allergy/AdvReac Type Severity Reaction Status Date / Time niacin Allergy Itching Verified 09/07/23 11:08 venlafaxine AdvReac Severe Vomiting Verified 09/07/23 11:08 metformin AdvReac Intermediate Diarrhea Verified 09/07/23 11:08 cephalexin [From Keflex] AdvReac Other Verified 09/07/23 11:08 Family History Sister Breast cancer Diabetes Kidney disease Other Arthritis Heart disease Surgical History History of back surgery History of carpal tunnel release History of total right knee replacement Hx of arthroscopic knee surgery Hx of hysterectomy hx of plantar fasciotomy Hx of surgical procedure Hx of total knee replacement Social History Smoking Status: Former smoker alcohol intake: never substance use type: does not use caffeine: No what type of physical activity do you participate in: none seatbelt use: always do you feel safe at home: Yes additional social history: [id number] at [employer] Patient is disabled EXAM Physical Exam Const Vital Signs: 09/08/23 21:53 09/09/23 01:49 Temperature 97.5 F L Temperature Source Temporal Pulse Rate 55 L 57 L Respiratory Rate 16 18 Blood Pressure 156/94 H Blood Pressure Mean 114 Pulse Ox 96 92 Oxygen Delivery Method Room Air Room Air MDM MDM MDM Narrative Medical decision making narrative: HISTORY OF PRESENT ILLNESS: 63-year-old female presents with months of left-sided abdominal pain. REVIEW OF SYSTEMS: Pertinent positives: Abdominal pain Pertinent negatives: Chest pain, shortness of breath PHYSICAL EXAM: Nursing triage notes reviewed, Vital signs reviewed Constitutional: please see mdm HENT: MMM Eyes: Pupils equal round and reactive to light, Extraocular muscles intact Neck: No stridor, no JVD, full neck ROM Lungs: Clear to auscultation, No wheezing or rales. No increased work of breathing, no conversational dyspnea, no accessory muscle use, no nasal flaring. No respiratory distress noted Heart: Regular rate and rhythm, No murmurs, No rubs and No gallops, 2+ distal pulses (radial, femoral, posterior tibial) in all extremities Abdomen: Soft, there is no tenderness, rigidity, rebound or guarding, no obvious peritoneal signs, no palpable pulsatile abdominal masses, no auscultated abdominal bruit : No CVAT Extremities: No edema Neuro: No focal neurological deficits, cranial nerves II through XII intact, 5/5 strength in all extremities. Intact sensation to light touch in all extremities, 2+ reflexes bilateral patella tendons. Normal gait. No ataxia. Skin: No rash or lesions noted MEDICAL DECISION MAKING: Chief Complaint: Abdominal pain External records reviewed: Imaging studies reviewed: CT scan abdomen pelvis from 2019 shows no evidence of acute intra-abdominal or pelvic abnormalities Factors affecting care: Hypertension, hypothyroidism, anxiety, type 2 diabetes Social determinants of health: none History obtained from others: none Consults: none [facility] Narrative: The patient was initially hemodynamically stable, afebrile, nontoxic-appearing abdominal exam with left-sided tenderness. I considered the following differential diagnosis: AAA, small bowel obstruction, abdominal perforation, appendicitis, pancreatitis, hepatobiliary pathology (acute cholecystitis), mesenteric ischemia, pathology (ie nephrolithiasis, pyelonephritis). ALL IMAGES (IF OBTAINED) HAVE BEEN PERSONALLY REVIEWED AND INTERPRETED BY MYSELF. CT scan abdomen pelvis shows no acute intra-abdominal pathology, shows left renal cyst (incidental findings constipation) CBC without leukocytosis, severe anemia, no thrombocytopenia. BMP without evidence of significant electrolyte abnormalities, no anion gap, no acute kidney injury. LFTs show no evidence of hepatobiliary pathology. Urinalysis shows no evidence of urinary inflammation suggestive of UTI The synthesis of the patient's history, physical exam, labs and images suggest no acute life-limiting pathology. Incidental finding and further outpatient evaluation of renal cyst was discussed. The patient and/or family, caregivers express understanding. The patient and/or family, caregivers agrees with the plan. Shared decision making: I will have a discussion with the patient and or visitors regarding risk/benefits of further testing or admission. They will be made aware of of the risk/benefits inherent in this decision they will be given the opportunity to voice understanding. Total critical care time today provided was at least 0 minutes. This excludes separately billable procedures. Critical care time (if documented) is secondary to the patient having high probability of clinically significant/life threatening deterioration in the patient's condition which required my urgent intervention. Impression: 1. Abdominal pain 2. Chronic pain 3. Left renal cyst Dispo: Discharge Lab Data Labs: Laboratory Results - last 24 hr 09/08/23 09/09/23 22:59 00:09 WBC 8.0 RBC 4.14 L Hgb 12.1 Hct 38.0 MCV 91.8 MCH 29.2 MCHC 31.8 L RDW Std Deviation 46.7 H RDW Coeff of Mouna 14.1 Plt Count 219 MPV 9.2 Immature Gran % (Auto) 0.900 Neut % (Auto) 50.3 Lymph % (Auto) 39.7 Cochran % (Auto) 6.2 Eos % (Auto) 2.2 Baso % (Auto) 0.7 Absolute Neuts (auto) 4.0 Absolute Lymphs (auto) 3.18 Nucleated RBC % 0 Sodium 141 Potassium 4.5 Chloride 106 Carbon Dioxide 31.0 Anion Gap 4 L BUN 20 H Creatinine 0.94 Estim Creat Clear Calc 71.08 Est GFR (MDRD) Af Amer 77 Est GFR (MDRD) Non-Af 64 BUN/Creatinine Ratio 21.3 H Glucose 222 H Calcium 8.8 Total Bilirubin 0.30 AST 32 ALT 45 Alkaline Phosphatase 104 Total Protein 6.7 Albumin 2.8 L Globulin 3.9 Albumin/Globulin Ratio 0.7 L Lipase 32 Urine Color Yellow Urine Clarity Clear Urine pH 5.0 Ur Specific [place] 1.020 Urine Protein Negative Urine Glucose (UA) Normal Urine Ketones Negative Urine Occult Blood Negative Urine Nitrite Negative Urine Bilirubin Negative Urine Urobilinogen Normal Ur Leukocyte Esterase 25 H Urine RBC 0 SEEN Urine WBC 0 SEEN Ur Squamous Epith Cells 0 SEEN Urine Bacteria 0 SEEN Urine Mucus 0 SEEN Radiography Diagnostic Testing: Clinical Impression(s) from Imaging Studies Abdomen/Pelvis CT 09/09/23 23:11 IMPRESSION: Interval enlargement of a cystic lesion within the left renal midpole cortex; nonemergent renal ultrasound suggested for further evaluation as this cystic lesion may contain an internal septation. Hepatomegaly again noted. No acute intra-abdominal abnormality; no findings of obstructive uropathy, small bowel obstruction or diverticulitis. Electronically Signed: Terrance Wagoner MD at 2:19 EST , Discharge Plan Triage Chief Complaint: Abd Pain ED Provider: [facility] Dx/Rx/DC Orders Prescriptions: No Action methotrexate sodium 2.5 mg tablet 20 mg PO FR folic acid 0.8 mg capsule 0.8 mg PO DAILY PRN (Reason: WITH WATER PILL) cholecalciferol (vitamin D3) 25 mcg (1,000 unit) capsule 25 mcg PO DAILY Adult 50 Plus Probiotic 4 billion cell capsule 4,000 mmu cells PO DAILY Rx Instructions: administer with a meal clonidine HCl 0.1 mg tablet 0.1 mg PO Q8H Patient Comments: take 1 tablet by mouth three times a day if needed for anxiety or TREMOR(S) escitalopram oxalate 20 mg tablet 20 mg PO DAILY Qty: 90 1RF gabapentin 100 mg capsule 100 mg PO TID 90 Days Qty: 270 2RF lorazepam 1 mg tablet 1 mg PO BID Qty: 60 0RF hydroxyzine pamoate 50 mg capsule 50 mg PO QHS Qty: 30 2RF omeprazole 40 MG capsule 40 mg PO DAILY Patient Comments: ACID REFLEX trazodone 100 MG tablet 100 mg PO QHS Patient Comments: DEPRESSION tizanidine 4 mg tablet 1 mg PO Q8H Patient Comments: MUSCLE SPASMS/PAIN levothyroxine 50 MCG tablet 50 mcg PO DAILY simvastatin 20 MG tablet 20 mg PO DAILY atenolol 25 MG tablet 25 mg PO DAILY leucovorin calcium 10 MG tablet 5 mg PO FR insulin glargine [Lantus Solostar U-100 Insulin] 100 unit/mL (3 mL) Insulin Pen 45 unit SUBCUT QPM diclofenac sodium [Voltaren Arthritis Pain] 1 % Gel 1 ea TOPICAL PRN PRN (Reason: Pain) insulin lispro 100 unit/mL insulin pen See Rx Instructions SUBCUT TID Patient Comments: SLIDING SCALE Rx Instructions: 25 subcutaneously three times a day; with meals 12 units with snack oxycodone-acetaminophen [Percocet] 5-325 mg Tablet 1 tab PO Q8H PRN (Reason: Pain) lisinopril 20 mg Tablet 20 mg PO DAILY Qty: 30 0RF potassium chloride 8 mEq capsule, extended release 8 meq PO DAILY Qty: 30 0RF (DME) FreeStyle Prema 2 Sensor Kit See Rx Instructions .Route Qty: 6 3RF Rx Instructions: 1 sensor q 14 days Primary Care Provider: Rica Padgett Referrals: Rica Padgett DO [Primary Care Provider] -
--- OUTSIDE RECORDS SUMMARY | 2023-09-08 22:56 | XMS RPT_ITS | CCD ---
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 Name Role Phone Marlen ELLIS, Azra Guzman Unavailable ROSIE DRUMMOND DR Admitting Unavailable ROSIE DRUMMOND DR Attending Unavailable ROSIE DRUMMOND DR Primary Care Unavailable Shonda York Primary Care Provider [phone] Rica Padgett DO Primary Care Provider Rica Padgett Unavailable Jesus Amezquita Unavailable Silvana Jade Unavailable Unavailable Rica Padgett DO Primary Care Provider NICOLÁS AGGARWAL Referring Unavailable RICA PADGETT Primary Care Unavailable NICOLÁS AGGARWAL Attending Unavailable RICA PADGETT Primary Care Unavailable Rica Padgett DO Primary Care Provider ERIN SAUNDERS Primary Care Unavailable JACKELINE DURON Admitting Unavailable RENATA GIVENS Attending Unavailable DR RICA PADGETT DO Primary Care Physician PJ MAHONEY Attending Unavailable LAURO FALCON, DR RICA Alonso Primary Care Unavailable PJ MAHONEY Attending Unavailable DR RICA PADGETT DO Primary Care Unavailable PJ MHAONEY Attending Unavailable DR RICA PADGETT DO Primary Care Unavailable PJ MAHONEY Admitting Unavailable REGINALDO HERNÁNDEZ PA-C W Consulting Unavailable PJ MAHONEY Referring Unavailable RICA BOOKER Consulting Unavaila Rica Reis DO Primary Care Provider [phone] BILL MIJARES Attending Unavailable BILL MIJARES Referring Unavailable ARSENWINSTONRICA Primary Care Unavailable Allergies Allergy Classification Reported Allergen(s) Allergy Type Date of Onset Reaction(s) Facility Anti-Epileptic Agents (2 sources) gabapentin Drug Allergy 5 Mental Status Change [facility] Work Phone: Niacin (1 source) Niacin Drug Allergy 7 Rash, Hives, Itching [facility] (2 sources) gabapentin Drug Allergy 6 hives, light headed [facility] (1 source) gabapentin Drug Allergy Hives/Urticaria [facility] (5 sources) gabapentin; Translations: [GABAPENTIN] Drug Allergy 5 Mental Status Change [facility] Work Phone: (8 sources) Niacin; Translations: [NIACIN] Drug Allergy 7 Rash, Hives, Itching [facility] (3 sources) venlafaxine; Translations: [VENLAFAXINE] Drug Allergy 4 [facility] Medications Current Medications Medication Drug Class(es) Dates Sig (Normalized) Sig (Original) acetaminophen 500 mg oral tablet (1 source) Start: 02-24-2023 End: 03-10-2023 acetaminophen 500 mg oral tablet Dose : 1,000 mg = 2 tab(s), Oral, TID, PRN as needed for pain, # 100 tab(s), 0 Refill(s), 03/10/23 14:44:00 EDT Start Date: 02/24/23 Stop Date: 03/10/23 Status: Ordered acetaminophen 325 mg / oxyCODONE hydrochloride 5 mg oral tablet (8 sources) Opioid Agonist Start: 02-03-2023 take 1 tablet by mouth every six hours as needed for pain acetaminophen-oxyCO DONE 325 mg-5 mg oral tablet Dose = 2 tab(s), Oral, q6h, PRN for pain, # 12 tab(s), 0 Refill(s) Start Date: 02/03/23 Status: Ordered Completed/Discontinued Medications Medication Drug Class(es) Dates Sig (Normalized) Sig (Original) acetaminophen 325 mg / HYDROcodone bitartrate 5 mg oral tablet (2 sources) Opioid Agonist Start: 12-08-2015 take 1 tablet by mouth every six hours as needed HYDROCODONE-ACETAM INOPHEN 5-325 MG TABS 1 tab po q6h as needed HYDROCODONE-ACETAM INOPHEN [id number] Rica Gavin Arsenwinston, DO aspirin 81 mg chewable tablet (5 sources) Platelet Aggregation Inhibitor, Nonsteroidal Anti-inflammatory Drug Start: 09-04-2008 End: 03-22-2016 ASPIRIN 81 MG CHEWABLE TAB ONE TAB DAILY 0 09/04/2008 03/22/2016 Discontinued Problems Active Problems Problem Classification Problem Date Documented Da te Episodic/Chronic Diabetes mellitus with complications (5 sources) Neuropathy due to diabetes mellitus; Translations: [Type 2 diabetes mellitus with diabetic neuropathy, unspecified] Onset: 05-19-2022 Chronic Diabetes mellitus without complication (2 sources) Type 2 diabetes mellitus without complications; Translations: [Type 2 diabetes mellitus without complication] Onset: 02-08-2020 Chronic Diabetes mellitus without complication (2 sources) Hyperglycemia; Translations: [Other abnormal glucose] 02-13-2021 Episodic Disorders of lipid metabolism (2 sources) Hyperlipidemia; Translations: [Hyperlipidemia, unspecified] Onset: 12-08-2015 12-08-2015 Chronic Essential hypertension (3 sources) Benign essential hypertension; Translations: [Essential hypertension] Onset: 12-08-2015 12-08-2015 Chronic Osteoarthritis (7 sources) Unspecified osteoarthritis, unspecified site; Translations: [Osteoarthritis of left foot] Onset: 02-08-2020 Chronic Other circulatory disease (1 source) Elevated blood-pressure reading, without diagnosis of hypertension; Translations: [Elevated blood-pressure reading, without diagnosis of hypertension] Onset: 02-08-2020 Episodic Other connective tissue disease (1 source) Artificial knee joint present; Translations: [Presence of right artificial knee joint] Onset: 02-24-2023 Chronic Other connective tissue disease (1 source) Fibromyalgia; Translations: [Fibromyalgia] Onset: 02-08-2020 Episodic Other connective tissue disease (1 source) Radial styloid tenosynovitis [de Quervain]; Translations: [Radial styloid tenosynovitis [de Quervain]] Onset: 02-08-2020 Episodic Other gastrointestinal disorders (2 sources) Diarrhea; Translations: [Diarrhea, unspecified] 09-06-2023 Episodic Other gastrointestinal disorders (2 sources) Diarrhea, unspecified; Translations: [Diarrhea, unspecified] Onset: 09-06-2023 Episodic Other nervous system disorders (1 source) Carpal tunnel syndrome, right upper limb; Translations: [Carpal tunnel syndrome, right upper limb] Onset: 02-08-2020 Chronic Other nervous system disorders (1 source) Other chronic pain; Translations: [Other chronic pain] Onset: 02-08-2020 Chronic Other nervous system disorders (2 sources) Anesthesia of skin; Translations: [Anesthesia of skin] Onset: 02-08-2020 Episodic Other nutritional; endocrine; and metabolic disorders (2 sources) Overweight; Translations: [Overweight] Onset: 12-09-2016 12-09-2016 Chronic Other nutritional; endocrine; and metabolic disorders (1 source) Obesity, unspecified; Translations: [Obesity, unspecified] Onset: 02-08-2020 Chronic Other nutritional; endocrine; and metabolic disorders (1 source) Body mass index (BMI) 39.0-39.9, adult; Translations: [Body mass index (BMI) 39.0-39.9, adult] Onset: 02-08-2020 Chronic Other nutritional; endocrine; and metabolic disorders (5 sources) Obesity; Translations: [Obesity, unspecified] Onset: 12-31-2010 12-31-2010 Chronic Other screening for suspected conditions (not mental disorders or infectious disease) (1 source) Breast neoplasm screening status; Translations: [Encounter for screening mammogram for malignant neoplasm of breast] Episodic Pulmonary heart disease (3 sources) Pulmonary embolism; Translations: [Personal history of pulmonary embolism] Onset: 12-08-2015 12-08-2015 Episodic Residual codes; unclassified (1 source) Sleep apnea; Translations: [Sleep apnea, unspecified] Onset: 02-23-2023 Chronic Residual codes; unclassified (1 source) Pain, unspecified; Translations: [Pain] Onset: 05-19-2022 Episodic Residual codes; unclassified (1 source) Pain; Translations: [Pain, unspecified] 05-19-2022 Episodic Screening and history of mental health and substance abuse codes (1 source) Personal history of nicotine dependence; Translations: [Personal history of nicotine dependence] Onset: 02-08-2020 Episodic Skin and subcutaneous tissue infections (2 sources) Cellulitis of lower leg; Translations: [Cellulitis and abscess of leg, except foot] 05-22-2021 Episodic Spondylosis; intervertebral disc disorders; other back problems (10 sources) Inflammation of sacroiliac joint; Translations: [Sacroiliitis, not elsewhere classified] Onset: 11-02-2002 12-31-2010 Chronic Suicide and intentional self-inflicted injury (2 sources) Suicidal ideations; Translations: [Suicidal ideations] Onset: 10-01-2022 Episodic Unclassified (2 sources) Body mass index (BMI) 40.0-44.9, adult; Translations: [Body mass index (BMI) 40.0-44.9, adult] Onset: 12-09-2016 12-09-2016 Chronic Unclassified (2 sources) Therapeutic drug monitoring assay ; Translations: [Encounter for therapeutic drug level monitoring] Onset: 12-08-2015 12-08-2015 Unclassified (2 sources) Gynecologic examination ; Translations: [Encounter for gynecological examination (general) (routine) without abnormal findings] Onset: 07-25-2017 07-25-2017 Unclassified (2 sources) Dilatation of bile duct ; Translations: [Other specified diseases of biliary tract] Onset: 12-09-2016 12-09-2016 Unclassified (2 sources) Screening mammography ; Translations: [Encounter for screening mammogram for malignant neoplasm of breast] Onset: 07-25-2017 07-25-2017 Unclassified (2 sources) HIGH SUGAR (492 AT HOME) 02-13-2021 Past or Other Problems Problem Classification Problem Date Documented Da te Episodic/Chronic Abdominal pain (2 sources) Right upper quadrant pain; Translations: [Right upper quadrant pain] Onset: 12-09-2016 12-09-2016 Episodic Acquired foot deformities (11 sources) Talipes planus; Translations: [Flat foot [pes planus] (acquired), left foot] Onset: 05-19-2022 Episodic Malaise and fatigue (2 sources) Fatigue; Translations: [Other fatigue] Onset: 12-08-2015 12-08-2015 Episodic Residual codes; unclassified (5 sources) Family history of diabetes mellitus; Translations: [Family history of diabetes mellitus] Onset: 12-31-2010 12-31-2010 Episodic Results Test Name Value Interpretation Reference Range Facil ity Vital Signs Date Time Vital Sign Value Performing Clinician Facility 09-06-2023 13:50-0500 Body temperature 97 [degF] Bill Thomae DO Work Phone: [facility] 09-06-2023 13:50-0500 Diastolic blood pressure 62 mm[Hg] Bill Thomae DO Work Phone: [facility] 09-06-2023 13:50-0500 Heart rate 59 /min Bill Thomae DO Work Phone: [facility] 09-06-2023 13:50-0500 Respiratory rate 16 /min Bill Thomae DO Work Phone: [facility] 09-06-2023 13:50-0500 SaO2% (BldA) [Mass fraction] 94 % Bill Thomae DO Work Phone: [facility] 09-06-2023 13:50-0500 Systolic blood pressure 111 mm[Hg] Bill Thomae DO Work Phone: [facility] 02-24-2023 15:16-0400 Body temperature 97.7 [degF] DR PJ MAHONEY MD [facility] 02-24-2023 15:16-0400 Diastolic Blood Pressure Non-Invasive [address] PJ MAHONEY MD [facility] 02-24-2023 15:16-0400 Heart rate 66 /min DR PJ MAHONEY MD [facility] 02-24-2023 15:16-0400 Reason For Taking VItal Signs DR PJ MAHONEY MD [facility] 02-24-2023 15:16-0400 Respiratory rate 16 /min DR PJ MAHONEY MD [facility] 02-24-2023 15:16-0400 Systolic Blood Pressure Non-Invasive [address] PJ MAHONEY MD [facility] 02-24-2023 11:13-0400 Body temperature 98.42 [degF] DR PJ MAHONEY MD [facility] 02-24-2023 11:13-0400 Diastolic Blood Pressure Non-Invasive [address] PJ MAHONEY MD [facility] 02-24-2023 11:13-0400 Heart rate 71 /min DR PJ MAHONEY MD [facility] 02-24-2023 11:13-0400 Reason For Taking VItal Signs DR PJ MAHONEY MD [facility] 02-24-2023 11:13-0400 Respiratory rate 16 /min DR PJ MAHONEY MD [facility] 02-24-2023 11:13-0400 Systolic Blood Pressure Non-Invasive [address] PJ MAHONEY MD [facility] 02-24-2023 09:07-0400 Heart rate 84 /min DR PJ MAHONEY MD [facility] 02-24-2023 08:58-0400 Diastolic Blood Pressure Non-Invasive [address] PJ MAHONEY MD [facility] 02-24-2023 08:58-0400 Systolic Blood Pressure Non-Invasive [address] PJ MAHONEY MD [facility] 02-24-2023 08:12-0400 Body temperature 97.88 [degF] DR PJ MAHONEY MD [facility] 02-24-2023 08:12-0400 Heart rate 74 /min DR PJ MAHONEY MD [facility] 02-24-2023 08:12-0400 Reason For Taking VItal Signs DR PJ MAHONEY MD [facility] 02-24-2023 08:12-0400 Respiratory rate 18 /min DR PJ MAHONEY MD [facility] 02-23-2023 22:43-0400 Heart rate 60 /min DR PJ MAHONEY MD [facility] 02-23-2023 20:04-0400 Heart rate 64 /min DR PJ MAHONEY MD [facility] 02-23-2023 14:32-0400 Heart rate 82 /min DR PJ MAHONEY MD [facility] 02-23-2023 11:40-0400 Heart rate 70 /min DR PJ MAHONEY MD [facility] 02-22-2023 14:40-0400 Body height 162.[address] PJ MAHONEY MD [facility] 02-22-2023 14:40-0400 Body weight [address] PJ MAHONEY MD [facility] 02-22-2023 14:40-0400 Body weight 41.61 kg/m2 DR PJ MAHONEY MD [facility] 02-22-2023 13:15-0400 Body temperature 96.26 [degF] DR PJ MAHONEY MD [facility] 02-22-2023 12:04-0400 Body temperature 97.7 [degF] DR PJ MAHONEY MD [facility] 02-22-2023 12:00-0400 Respiratory Rate - Anes 3 br/min DR PJ MAHONEY MD [facility] 02-22-2023 11:55-0400 Respiratory Rate - Anes 26 br/min DR PJ MAHONEY MD [facility] 02-22-2023 11:50-0400 Body temperature 96.84 [degF] DR PJ MAHONEY MD [facility] 02-22-2023 11:50-0400 Respiratory Rate - Anes 23 br/min DR PJ MAHONEY MD [facility] 02-22-2023 11:45-0400 Body temperature 96.85 [degF] DR PJ MAHONEY MD [facility] 02-22-2023 11:40-0400 Body temperature 96.89 [degF] DR PJ MAHONEY MD [facility] 02-22-2023 09:31-0400 Body height 162.[address] PJ MAHONEY MD [facility] 02-22-2023 09:31-0400 Body temperature 98.42 [degF] DR PJ MAHONEY MD [facility] 02-22-2023 09:31-0400 Body weight [address] PJ MAHONEY MD [facility] 02-03-2023 13:58-0400 Blood Pressure Cuff Size DR PJ MAHONEY MD [facility] 02-03-2023 13:58-[address] PJ MAHONEY MD [facility] 02-03-2023 13:58-[address] PJ MAHONEY MD [facility] 02-03-2023 13:58-0400 Body height 162.[address] PJ MAHONEY MD [facility] 02-03-2023 13:58-0400 Body weight [address] PJ MAHONEY MD [facility] 02-03-2023 13:58-0400 Body weight 41.61 kg/m2 DR PJ MAHONEY MD [facility] 02-03-2023 13:58-0400 Diastolic Blood Pressure Non-Invasive [address] PJ MAHONEY MD [facility] 02-03-2023 13:58-0400 Heart rate 73 /min DR PJ MAHONEY MD [facility] 02-03-2023 13:58-0400 Systolic Blood Pressure Non-Invasive [address] PJ MAHONEY MD [facility] 05-22-2021 01:30-0400 Diastolic blood pressure 66 mm[Hg] Rica Malys Other Phone: [facility] 05-22-2021 01:30-0400 Heart rate 72 /min Rica Malys Other Phone: [facility] 05-22-2021 01:30-0400 Respiratory rate 16 /min Rica Malys Other Phone: [facility] 05-22-2021 01:30-0400 SaO2% (BldA) [Mass fraction] 96 % Rica Malys Other Phone: [facility] 05-22-2021 01:30-0400 Systolic blood pressure 138 mm[Hg] Rica Malys Other Phone: [facility] 05-21-2021 22:35-0400 Body height 162.5 cm Rica Malys Other Phone: [facility] 05-21-2021 22:35-0400 Body temperature 97.16 [degF] Rica Malys Other Phone: [facility] 05-21-2021 22:35-0400 Body weight 109.3 kg Rica Malys Other Phone: [facility] 02-13-2021 05:12-0400 Diastolic blood pressure 73 mm[Hg] Rica Malys Other Phone: [facility] 02-13-2021 05:12-0400 Heart rate 55 /min Rica Malys Other Phone: [facility] 02-13-2021 05:12-0400 Respiratory rate 18 /min Rica Malys Other Phone: [facility] 02-13-2021 05:12-0400 SaO2% (BldA) [Mass fraction] 92 % Rica Malys Other Phone: [facility] 02-13-2021 05:12-0400 Systolic blood pressure 143 mm[Hg] Rica Malys Other Phone: [facility] 02-13-2021 02:01-0400 Body temperature 97.16 [degF] Rica Malys Other Phone: [facility] 07-25-2017 14:03-0500 BMI (Body Mass Index) 39.79 kg/m2 Azra Gee NP [facility] 07-25-2017 14:03-0500 BP Diastolic 78 mm[Hg] Azra Gee NP [facility] 07-25-2017 14:03-0500 BP Systolic 128 mm[Hg] Azra Gee COMMUNITY ADMINISTRATOR [facility] 07-25-2017 14:03-0500 Height 161.93 cm Azra Gee NP [facility] 07-25-2017 14:03-0500 Weight 104.33 kg Azra Gee NP [facility] 12-09-2016 11:09-0400 Body Temperature 98 [degF] Azra Gee NP [facility] 12-09-2016 11:09-0400 BSA (Body Surface Area) 2.11 m2 Azra Gee NP [facility] 12-09-2016 11:09-0400 Pulse (Heart Rate) 86 /min Azra Gee NP [facility] 12-09-2016 11:09-0400 Respiratory Rate 18 /min Azra Gee NP [facility] Encounters Encounter Date Encounter Type Care Provider Facility Start: 09-06-2023 End: 09-07-2023 ambulatory BILL MIJARES [facility] Start: 09-06-2023 End: 09-06-2023 Subsequent hospital visit by physician Bill Mijares DO Work Phone: [facility] Procedures Date Procedure Procedure Detail Performing Clinician Start: 09-06-2023 DISCHARGE PATIENT BILL MIJARES Start: 09-06-2023 PLACE IN OUTPATIENT/HOSPITAL AMBULATORY SURGERY BILL MIJARES Start: 09-06-2023 PULSE OXIMETRY, SPOT DA LE THOMAE Start: 09-06-2023 Colon ca scrn not hi rsk ind Bill Mijares DO Work Phone: Start: 09-06-2023 PULSE OXIMETRY, SPOT Da le R Thomae DO Work Phone: Start: 09-06-2023 Colonoscopy Bill Farzana e DO Work Phone: Start: 02-22-[address] PJ MAHONEY MD Plan of Treatment Date Care Activity Detail Author Start: 09-03-2033 Screening for malignant neoplasm of colon [facility] Start: 10-05-2025 Diabetes mellitus screening Diabetes Screening [facility] Start: 08-05-2023 COVID-19 Vaccine (4 - Pfizer series) COVID-19 Vaccine (4 - Pfizer series) [facility] Start: 2023 Advance Directive Discussion Advance Directive Discussion [facility] Start: 09-13-2023 Bone Density Screening Bone Density Screening [facility] Start: 04-29-2023 Influenza vaccination Influenza Vaccine (#1) [facility] Start: 08-29-2022 DEPRESSION ASSESSMENT DEPRESSION ASSESSMENT [facility] Start: 04-29-2022 Influenza vaccination INFLUENZA (#1) [facility] Start: 04-09-2022 DIABETES SCREEN DIABETES SCREEN [facility] Start: 08-29-2021 DEPRESSION ASSESSMENT DEPRESSION ASSESSMENT [facility] Start: 04-29-2021 Influenza vaccination INFLUENZA (Season Ended) [facility] Start: 04-09-2020 Hepatitis B screening URINE ALBUMIN:CREATININE RATIO [facility] Start: 2018 Hepatitis B Vaccine (1 of 3 - Risk 3-dose series) Hepatitis B Vaccine (1 of 3 - Risk 3-dose series) [facility] Start: 07-25-2017 End: 07-25-2017 Appointment Appointment [facility] Start: 03-22-2017 Mammography [facility] Start: 12-09-2016 End: 12-09-2016 *BMP *BMP [facility] Start: 12-09-2016 End: 12-10-2016 *Hepatic Function Panel *Hepatic Function Panel [facility] Start: 12-09-2016 End: 12-09-2016 Ct abdomen & pelvis w/contrast material CT Abdomen/pelvis; with contrast [facility] Start: 12-09-2016 End: 12-10-2016 Follow Up after Imaging/labs Follow Up after Imaging/labs [facility] Start: 12-09-2016 End: 12-09-2016 Lipase *Lipase [facility] Start: 12-08-2015 End: 12-08-2015 *CBC with Differential *CBC with Differential [facility] Start: 12-08-2015 End: 12-08-2015 *CMP Complete Metabolic Panel *CMP Complete Metabolic Panel [facility] Start: 12-08-2015 End: 12-08-2015 *PROTS Protein S Defic. Profile [id number] *PROTS Protein S Defic. Profile [id number] [facility] Start: 12-08-2015 End: 12-08-2015 *UA - Urinalysis w/o Micro *UA - Urinalysis w/o Micro [facility] Start: 12-08-2015 End: 12-08-2015 Antithrombin actual/normal in Platelet poor plasma by Chromogenic method *AT3 - Antithrombin 3 Activity [id number] [facility] Start: 12-08-2015 End: 12-08-2015 Cardiolipin Antibodies (IgA IgG IgM) Cardiolipin Antibodies (IgA IgG IgM) [facility] Start: 12-08-2015 End: 12-08-2015 Clotting inhibitors protein c activity Protein C Activity [facility] Start: 12-08-2015 End: 12-08-2015 Ct thorax w/contrast material CT Chest with Contrast [facility] Start: 12-08-2015 End: 12-08-2015 Factor V (Leiden) Mutation Analysis Factor V (Leiden) Mutation Analysis [facility] Start: 12-08-2015 End: 12-08-2015 Lipid panel [AGGREGATE] *Lipid Profile [facility] Start: 12-08-2015 End: 12-08-2015 Thyroid stimulating hormone (TSH) *TSH [facility] Start: 12-08-2015 End: 12-08-2015 Urine, microalbumin *Urine, Microalbumin [facility] Start: 07-29-2015 LIPID SCREEN LIPID SCREEN [facility] Start: 02-26-2014 Screening for malignant neoplasm of colon SIGMOIDOSCOPY [facility] Start: 02-26-2014 SIGMOIDOSCOPY SIGMOIDOSCOPY [facility] Start: 03-19-2013 Colonoscopy COLONOSCOPY [facility] Start: 03-19-2013 COLORECTAL CANCER SCREENING COLORECTAL CANCER SCREENING [facility] Start: 03-19-2013 Screening for malignant neoplasm of colon [facility] Start: 07-03-2011 Hemoglobin A1c/Hemoglobin.total in Blood HBA1C [facility] Start: 2008 Screening for malignant neoplasm of colon [facility] Start: 2008 SHINGRIX VACCINE (1 of 2) SHINGRIX VACCINE (1 of 2) [facility] Start: 2003 COLOGUARD (FIT-DNA) COLOGUARD (FIT-DNA) [facility] Start: [address] COLONOGRAPHY [facility] Start: 2003 FECAL OCCULT BLOOD FECAL OCCULT BLOOD [facility] Start: 1998 Screening for malignant neoplasm of breast Mammogram [facility] Start: 1980 DTaP/Tdap/Td Vaccines (1 - Tdap) DTaP/Tdap/Td Vaccines (1 - Tdap) [facility] Start: 1979 Screening for malignant neoplasm of cervix [facility] Start: 1977 Urine microalbumin profile [facility] Start: 1976 ANNUAL PCP TEAM CHRONIC DISEASE VISIT ANNUAL PCP TEAM CHRONIC DISEASE VISIT [facility] Start: 1976 Hepatitis B surface antibody level LDL CHOLESTEROL [facility] Start: 1976 HEPATITIS C SCREENING HEPATITIS C SCREENING [facility] Start: 1976 Hepatitis C screening Hepatitis C Screening [facility] Start: 1976 HIV SCREENING HIV SCREENING [facility] Start: 1970 Adult depression screening assessment DEPRESSION SCREENING [facility] Start: 1968 3 comp foot exam completed DIABETIC FOOT EXAM [facility] Start: 1968 Hepatitis B screening Urine Albumin:Creatinine Ratio [facility] Start: 1968 Hepatitis C antibody, confirmatory test DILATED RETINAL EXAM [facility] Start: 1964 PNEUMOCOCCAL (1 - PCV) PNEUMOCOCCAL (1 - PCV) [facility] Start: 1964 Pneumococcal Vaccine: 65+ (1 - PCV) Pneumococcal Vaccine: 65+ (1 - PCV) [facility] Start: 1959 MMR Vaccines (1 of 1 - Standard series) MMR Vaccines (1 of 1 - Standard series) [facility] Start: 1958 COVID-19 VACCINE (#1) COVID-19 VACCINE (#1) [facility] Start: 1958 Annual wellness visit Medicare Initial Physical (IPPE) [facility] Start: 1958 Lipid panel Lipid Panel [facility] Start: 1958 Screening for malignant neoplasm of colon [facility] Start: 1958 Screening for osteoporosis Bone Density Scan [facility] Start: 1958 Thyroid stimulating hormone measurement TSH Level [facility] End: 09-06-2023 Moderate Sedation Moderate Sedation Procedures Routine Once for 1 Occurrences starting 09/06/2023 until 09/06/2023 [facility] Service Area Work Phone: Immunizations Immunization Date Immunization Notes Care Provider Fa cility 06-25-2018 influenza virus vacc ine, unspecified formulation Xr Rej Work Phone: [facility] 07-26-2012 influenza virus vacc ine, unspecified formulation Azra Gee Work Phone: [facility] Payers Date Payer Category Payer [employer] others[employer] [id number] 08/29/2022-Present [address] [place] [address] [id number] 08-29-2022 [employer] others[employer] [id number] 08-11-2022 Private Health Insurance [facility] [id number] 08-11-2022 [employer] ( and others) [id number] 08-11-2022 Private Health Insurance [id number] 07-26-2013 [employer] ( and others) [id number] 07-26-2013 Unknown FOR LIFE [id number] 07/26/2013-Present Indemnity [id number] 08-29-2007 Medicare [id number] 08-29-2007 Medicare MEDICARE MEDICAR E B [id number] 08/29/2007-03/06/2016 [place] [id number] 08-29-2007 Medicare [id number] 06-29-2004 Medicare MEDICARE MEDICAR E A AND B [id number] 06/29/2004-Present [place] [id number] 06-29-2004 Unknown 1960 Unknown [id number] 1958 Unknown [id number] 1958 Unknown [id number] 1958 Unknown [id number] 1958 Unknown [id number] Social History Date Type Detail Facility Start: 03-06-2011 End: 09-21-2012 Tobacco smoking status AZIS Former smoker [facility] Work Phone: Functional Status Date Assessment Result Facility 02-24-2023 Functional Status Room check performed [facility] 02-24-2023 Functional Status [facility] 02-24-2023 Functional Status Independent [facility] 02-24-2023 Functional Status Min A [facility] 02-24-2023 Functional Status Demonstrates C orrect Call Light Use Yes [facility] 02-23-2023 Functional Status [facility] 02-23-2023 Functional Status Dinner Percent 25 [facility] 02-23-2023 Functional Status [facility] 02-23-2023 Functional Status 60 [facility] 02-23-2023 Functional Status 2 [facility] 02-23-2023 Functional Status Single level home [facility] 02-23-2023 Functional Status [facility] 02-22-2023 Functional Status [facility] 02-22-2023 Functional Status [facility] 02-22-2023 Functional Status [facility] 02-22-2023 Functional Status ice on, tension pillow in place [facility] 02-22-2023 Functional Status NPO Status Maintained A [facility] 02-03-2023 Functional Status Sensory Deficits None A [facility] Mental Status Date Assessment Result Facility 02-24-2023 Mental Status Orientation Asse ssment Oriented x 4 [facility] 02[facility]24-2023 [facility] 02-24-2023 Mental Status Oriented x 4 [facility] 02-23-2023 Mental Status [facility] 02-23-2023 Mental Status [facility] Clinical Notes 02-07-2015 to 09-06-2023 Discharge InstructionsBill Mijares, DO - 09/06/2023 12:40 PM ESTDanakia Mijares, DO - 09/06/2023 12:40 PM ESTPre-Sedation Documentation - Bill Mijares DO - 09/06/2023 12:40 PM EST Note Date & Type Note Facility 09-06-2023 Hospital Discharg e instructions Mariia Mcghee RN - 09/06/2023 1:17 PM EST Patient Instructions after a Colonoscopy The anesthetics, sedatives or narcotics which were given to you today will be acting in your body for the next 24 hours, so you might feel a little sleepy or groggy. This feeling should slowly wear off. Carefully read and follow the instructions. You received sedation today: - Do not drive or operate any machinery or power tools of any kind. - No alcoholic beverages today, not even beer or wine. - Do not make any important decisions or sign any legal documents. - No over the counter medications that contain alcohol or that may cause drowsiness. - Do not make any important decisions or sign any legal documents. While it is common to experience mild to moderate abdominal distention, gas, or belching after your procedure, if any of these symptoms occur following discharge from the GI Lab or within one week of having your procedure, call the [facility] to be advised whether a visit to your nearest Urgent Care or Emergency Department is indicated. Take this paper with you if you go. - If you develop an allergic reaction to the medications that were given during your procedure such as difficulty breathing, rash, hives, severe nausea, vomiting or lightheadedness. - If you experience chest pain, shortness of breath, severe abdominal pain, fevers and chills. -If you develop signs and symptoms of bleeding such as blood in your spit, if your stools turn black, tarry, or bloody - If you have not urinated within 8 hours following your procedure. - If your IV site becomes painful, red, inflamed, or looks infected. If you received a biopsy/polypectomy/sphincterotom y the following instructions apply below: __ Do not use Aspirin containing products, non-steroidal medications or anti-coagulants for one week following your procedure. (Examples of these types of medications are: Advil, Arthrotec, Aleve, Coumadin, Ecotrin, Heparin, Ibuprofen, Indocin, Motrin, Naprosyn, Nuprin, Plavix, Vioxx, and Voltarin, or their generic forms. This list is not all-inclusive. Check with your physician or pharmacist before resuming medications.) __ Eat a soft diet today. Avoid foods that are poorly digested for the next 24 hours. These foods would include: nuts, beans, lettuce, red meats, and fried foods. Start with liquids and advance your diet as tolerated, gradually work up to eating solids. __ Do not have a Barium Study or Enema for one week. Your physician recommends the additional following instructions: -You have a contact number available for emergencies. The signs and symptoms of potential delayed complications were discussed with you. You may return to normal activities tomorrow. -Resume your previous diet. -Continue your present medications. -We are waiting for your pathology results. -Your physician has recommended a repeat colonoscopy (date to be determined after pending pathology results are reviewed) for surveillance based on pathology results. -The findings and recommendations have been discussed with you. -The findings and recommendations were discussed with your family. - Please see Medication Reconciliation Form for new medication/medications prescribed. If you experience any problems or have any questions following discharge from the GI Lab, please call: Nurse Signature Date Patient/Responsible Libertarian Signature Date documented in this encounter [facility] Work Phone: 09-06-2023 History and physical note History Of Present Illness Flex Savage is a 63 y.o. female presenting with colon cancer screening. Past Medical History Past Medical History: Diagnosis Date Anxiety Chronic pain Depression Diabetes mellitus (CMS/HCC) Disease of thyroid gland Sleep apnea Surgical History Past Surgical History: Procedure Laterality Date ADENOIDECTOMY BACK SURGERY fusion of L3,4,5 and S1 BUNIONECTOMY HYSTERECTOMY KNEE ARTHROPLASTY Bilateral OOPHORECTOMY TONSILLECTOMY Social History She reports that she has never smoked. She has never used smokeless tobacco. She reports that she does not drink alcohol and does not use drugs. Family History No family history on file. Allergies Effexor [venlafaxine] Review of Systems Physical Exam Vitals and nursing note reviewed. Constitutional: Appearance: Normal appearance. HENT: Head: Normocephalic. Mouth/Throat: Mouth: Mucous membranes are moist. Pharynx: Oropharynx is clear. Eyes: Conjunctiva/sclera: Conjunctivae normal. Pupils: Pupils are equal, round, and reactive to light. Cardiovascular: Pulses: Normal pulses. Heart sounds: Normal heart sounds. Pulmonary: Effort: Pulmonary effort is normal. Breath sounds: Normal breath sounds. Abdominal: General: Abdomen is flat. Bowel sounds are normal. Palpations: Abdomen is soft. Musculoskeletal: Cervical back: Normal range of motion and neck supple. Skin: General: Skin is warm and dry. Neurological: General: No focal deficit present. Mental Status: She is alert and oriented to person, place, and time. Psychiatric: Behavior: Behavior normal. Last Recorded Vitals There were no vitals taken for this visit. Relevant Results Assessment/Plan Active Problems: There are no active Hospital Problems. Problem List Items Addressed This Visit None Visit Diagnoses Diarrhea, unspecified type - Primary Relevant Orders Colonoscopy Screening; Average Risk Patient I spent minutes in the professional and overall care of this patient. Bill Mijares DO [facility] Work Phone: 09-06-2023 History and physical note History Of Present Illness Flex Savage is a 63 y.o. female presenting with colon cancer screening. Past Medical History Past Medical History: Diagnosis Date Anxiety Chronic pain Depression Diabetes mellitus (CMS/HCC) Disease of thyroid gland Sleep apnea Surgical History Past Surgical History: Procedure Laterality Date ADENOIDECTOMY BACK SURGERY fusion of L3,4,5 and S1 BUNIONECTOMY HYSTERECTOMY KNEE ARTHROPLASTY Bilateral OOPHORECTOMY TONSILLECTOMY Social History She reports that she has never smoked. She has never used smokeless tobacco. She reports that she does not drink alcohol and does not use drugs. Family History No family history on file. Allergies Effexor [venlafaxine] Review of Systems Physical Exam Vitals and nursing note reviewed. Constitutional: Appearance: Normal appearance. HENT: Head: Normocephalic. Mouth/Throat: Mouth: Mucous membranes are moist. Pharynx: Oropharynx is clear. Eyes: Conjunctiva/sclera: Conjunctivae normal. Pupils: Pupils are equal, round, and reactive to light. Cardiovascular: Pulses: Normal pulses. Heart sounds: Normal heart sounds. Pulmonary: Effort: Pulmonary effort is normal. Breath sounds: Normal breath sounds. Abdominal: General: Abdomen is flat. Bowel sounds are normal. Palpations: Abdomen is soft. Musculoskeletal: Cervical back: Normal range of motion and neck supple. Skin: General: Skin is warm and dry. Neurological: General: No focal deficit present. Mental Status: She is alert and oriented to person, place, and time. Psychiatric: Behavior: Behavior normal. Last Recorded Vitals There were no vitals taken for this visit. Relevant Results Assessment/Plan Active Problems: There are no active Hospital Problems. Problem List Items Addressed This Visit None Visit Diagnoses Diarrhea, unspecified type - Primary Relevant Orders Colonoscopy Screening; Average Risk Patient I spent minutes in the professional and overall care of this patient. Bill Mijares DO documented in this encounter [facility] Work Phone: 09-06-2023 Miscellaneous Notes Patient: Flex Savage Pre-sedation Evaluation: Sedation necessary for: Analgesia Requesting service: Endoscopy History of Present Illness: Colonoscopy Past Medical History: Diagnosis Date Anxiety Chronic pain Depression Diabetes mellitus (CMS/HCC) Disease of thyroid gland Sleep apnea Principle problems: There are no problems to display for this patient. 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 cholecalciferol (Vitamin D-3) 25 MCG (1000 UT) tablet Take 1 tablet (1,000 Units) by mouth once daily. cloNIDine (Catapres) 0.1 mg tablet Take 1 tablet (0.1 mg) by mouth 3 times a day as needed (anxiety). dicyclomine (Bentyl) 10 mg capsule Take 2 capsules (20 mg) by mouth every 6 hours if needed (cramping). escitalopram (Lexapro) 20 mg tablet Take 1 tablet (20 mg) by mouth once daily. folic acid (Folvite) 1 mg tablet gabapentin (Neurontin) 100 mg capsule Take 1 capsule (100 mg) by mouth 3 times a day. HumaLOG KwikPen Insulin 100 unit/mL injection Inject 14 Units under the skin 3 times a day with meals. 7 Units before snacks hydrOXYzine HCL (Atarax) 50 mg tablet Take 1 tablet (50 mg) by mouth. Lantus Solostar U-100 Insulin 100 unit/mL (3 mL) pen Inject 30 Units under the skin once daily at bedtime. leucovorin (Wellcovorin) 5 mg tablet Take 1 tablet (5 mg total) by mouth 1 (one) time per week. With methotrexate lisinopril 20 mg tablet Take 1 tablet (20 mg) by mouth once daily. LORazepam (Ativan) 2 mg tablet Take 0.5 tablets (1 mg) by mouth 2 times a day as needed for anxiety. methotrexate (Trexall) 2.5 mg tablet Take 8 tablets (20 mg total) by mouth 1 (one) time per week. multivitamin tablet Take 1 tablet by mouth once daily. omeprazole (PriLOSEC) [address] capsule Take 1 capsule (40 mg) by mouth once daily in the morning. Take before meals. Pump Patient Supplied Medication INSTILL INTO IMPLANTED PUMP AND INFUSE DIRECTED BY PRESCRIBER. FOR INTRATHECAL USE ONLY. COMPOUNDED DRUG PRODUCT simvastatin (Zocor) 20 mg tablet Take 1 tablet (20 mg) by mouth once daily at bedtime. Synthroid 50 mcg tablet Take 1 tablet (50 mcg) by mouth once daily in the morning. Take before meals. tiZANidine (Zanaflex) 4 mg tablet Take 1 tablet (4 mg) by mouth 3 times a day as needed for muscle spasms. traZODone (Desyrel) 100 mg tablet Take 1 tablet (100 mg) by mouth once daily at bedtime. oxyCODONE-acetaminophen (Percocet) 5-325 mg tablet Take 1 tablet by mouth every 6 hours if needed (pain). Current Facility-Administered Medications Medication Dose Route Frequency Provider Last Rate Last Admin lactated Ringer's infusion 20 mL/hr intravenous Continuous Bill Mijares DO Past Surgical History: has a past surgical history that includes Tonsillectomy; Adenoidectomy; Hysterectomy; Oophorectomy; Knee Arthroplasty (Bilateral); Bunionectomy; and Back surgery. Recent sedation/surgery (24 hours) No Review of Systems: Please check all that apply: No significant medical history test completed prior to procedure on any menstruating female: none NPO guidelines met: Yes Physical Exam Airway Mallampati: II Cardiovascular - normal exam Dental Pulmonary - normal exam Plan ASA 2 Moderate documented in this encounter [facility] Work Phone: 09-06-2023 Note Formatting of this n ote is different from the original. Patient: Flex Savage Pre-sedation Evaluation: Sedation necessary for: Analgesia Requesting service: Endoscopy History of Present Illness: Colonoscopy Past Medical History: Diagnosis Date Anxiety Chronic pain Depression Diabetes mellitus (CMS/HCC) Disease of thyroid gland Sleep apnea Principle problems: There are no problems to display for this patient. 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 cholecalciferol (Vitamin D-3) 25 MCG (1000 UT) tablet Take 1 tablet (1,000 Units) by mouth once daily. cloNIDine (Catapres) 0.1 mg tablet Take 1 tablet (0.1 mg) by mouth 3 times a day as needed (anxiety). dicyclomine (Bentyl) 10 mg capsule Take 2 capsules (20 mg) by mouth every 6 hours if needed (cramping). escitalopram (Lexapro) 20 mg tablet Take 1 tablet (20 mg) by mouth once daily. folic acid (Folvite) 1 mg tablet gabapentin (Neurontin) 100 mg capsule Take 1 capsule (100 mg) by mouth 3 times a day. HumaLOG KwikPen Insulin 100 unit/mL injection Inject 14 Units under the skin 3 times a day with meals. 7 Units before snacks hydrOXYzine HCL (Atarax) 50 mg tablet Take 1 tablet (50 mg) by mouth. Lantus Solostar U-100 Insulin 100 unit/mL (3 mL) pen Inject 30 Units under the skin once daily at bedtime. leucovorin (Wellcovorin) 5 mg tablet Take 1 tablet (5 mg total) by mouth 1 (one) time per week. With methotrexate lisinopril 20 mg tablet Take 1 tablet (20 mg) by mouth once daily. LORazepam (Ativan) 2 mg tablet Take 0.5 tablets (1 mg) by mouth 2 times a day as needed for anxiety. methotrexate (Trexall) 2.5 mg tablet Take 8 tablets (20 mg total) by mouth 1 (one) time per week. multivitamin tablet Take 1 tablet by mouth once daily. omeprazole (PriLOSEC) [address] capsule Take 1 capsule (40 mg) by mouth once daily in the morning. Take before meals. Pump Patient Supplied Medication INSTILL INTO IMPLANTED PUMP AND INFUSE DIRECTED BY PRESCRIBER. FOR INTRATHECAL USE ONLY. COMPOUNDED DRUG PRODUCT simvastatin (Zocor) 20 mg tablet Take 1 tablet (20 mg) by mouth once daily at bedtime. Synthroid 50 mcg tablet Take 1 tablet (50 mcg) by mouth once daily in the morning. Take before meals. tiZANidine (Zanaflex) 4 mg tablet Take 1 tablet (4 mg) by mouth 3 times a day as needed for muscle spasms. traZODone (Desyrel) 100 mg tablet Take 1 tablet (100 mg) by mouth once daily at bedtime. oxyCODONE-acetaminophen (Percocet) 5-325 mg tablet Take 1 tablet by mouth every 6 hours if needed (pain). Current Facility-Administered Medications Medication Dose Route Frequency Provider Last Rate Last Admin lactated Ringer's infusion 20 mL/hr intravenous Continuous Bill Mijares DO Past Surgical History: has a past surgical history that includes Tonsillectomy; Adenoidectomy; Hysterectomy; Oophorectomy; Knee Arthroplasty (Bilateral); Bunionectomy; and Back surgery. Recent sedation/surgery (24 hours) No Review of Systems: Please check all that apply: No significant medical history test completed prior to procedure on any menstruating female: none NPO guidelines met: Yes Physical Exam Airway Mallampati: II Cardiovascular - normal exam Dental Pulmonary - normal exam Plan ASA 2 Moderate [facility] Work Phone: 09-06-2023 Note Formatting of this n ote is different from the original. Patient: Flex Savage Pre-sedation Evaluation: Sedation necessary for: Analgesia Requesting service: Endoscopy History of Present Illness: Colonoscopy Past Medical History: Diagnosis Date Anxiety Chronic pain Depression Diabetes mellitus (CMS/HCC) Disease of thyroid gland Sleep apnea Principle problems: There are no problems to display for this patient. 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 cholecalciferol (Vitamin D-3) 25 MCG (1000 UT) tablet Take 1 tablet (1,000 Units) by mouth once daily. cloNIDine (Catapres) 0.1 mg tablet Take 1 tablet (0.1 mg) by mouth 3 times a day as needed (anxiety). dicyclomine (Bentyl) 10 mg capsule Take 2 capsules (20 mg) by mouth every 6 hours if needed (cramping). escitalopram (Lexapro) 20 mg tablet Take 1 tablet (20 mg) by mouth once daily. folic acid (Folvite) 1 mg tablet gabapentin (Neurontin) 100 mg capsule Take 1 capsule (100 mg) by mouth 3 times a day. HumaLOG KwikPen Insulin 100 unit/mL injection Inject 14 Units under the skin 3 times a day with meals. 7 Units before snacks hydrOXYzine HCL (Atarax) 50 mg tablet Take 1 tablet (50 mg) by mouth. Lantus Solostar U-100 Insulin 100 unit/mL (3 mL) pen Inject 30 Units under the skin once daily at bedtime. leucovorin (Wellcovorin) 5 mg tablet Take 1 tablet (5 mg total) by mouth 1 (one) time per week. With methotrexate lisinopril 20 mg tablet Take 1 tablet (20 mg) by mouth once daily. LORazepam (Ativan) 2 mg tablet Take 0.5 tablets (1 mg) by mouth 2 times a day as needed for anxiety. methotrexate (Trexall) 2.5 mg tablet Take 8 tablets (20 mg total) by mouth 1 (one) time per week. multivitamin tablet Take 1 tablet by mouth once daily. omeprazole (PriLOSEC) [address] capsule Take 1 capsule (40 mg) by mouth once daily in the morning. Take before meals. Pump Patient Supplied Medication INSTILL INTO IMPLANTED PUMP AND INFUSE DIRECTED BY PRESCRIBER. FOR INTRATHECAL USE ONLY. COMPOUNDED DRUG PRODUCT simvastatin (Zocor) 20 mg tablet Take 1 tablet (20 mg) by mouth once daily at bedtime. Synthroid 50 mcg tablet Take 1 tablet (50 mcg) by mouth once daily in the morning. Take before meals. tiZANidine (Zanaflex) 4 mg tablet Take 1 tablet (4 mg) by mouth 3 times a day as needed for muscle spasms. traZODone (Desyrel) 100 mg tablet Take 1 tablet (100 mg) by mouth once daily at bedtime. oxyCODONE-acetaminophen (Percocet) 5-325 mg tablet Take 1 tablet by mouth every 6 hours if needed (pain). Current Facility-Administered Medications Medication Dose Route Frequency Provider Last Rate Last Admin lactated Ringer's infusion 20 mL/hr intravenous Continuous Bill Mijares DO Past Surgical History: has a past surgical history that includes Tonsillectomy; Adenoidectomy; Hysterectomy; Oophorectomy; Knee Arthroplasty (Bilateral); Bunionectomy; and Back surgery. Recent sedation/surgery (24 hours) No Review of Systems: Please check all that apply: No significant medical history test completed prior to procedure on any menstruating female: none NPO guidelines met: Yes Physical Exam Airway Mallampati: II Cardiovascular - normal exam Dental Pulmonary - normal exam Plan ASA 2 Moderate [facility] Work Phone: 02-24-2023 Hospital Discharg e instructions Patient Education 02/24/2023 14:38:28 5 - [facility] Post-op Instruction 03/2017 ([id number]) [facility] Post-operative Instructions PLEASE FOLLOW [facility] POST-OP INSTRUCTIONS GIVEN WATCH FOR SIGNS OF INFECTION: call the office ([phone]) if experencing any of the following: (Usually appears 36-48 hours after surgery) Increased temperature (101 degrees Fahrenheit or higher) Redness or swelling Increased uncontrolled pain Foul odor or drainage Calf discomfort Significant swelling Or if having any chest pain, shortness of breath, or difficulty breathing or swallowing call the office or go the nearest Emergency Room. If you have any questions, please call your doctor at the number listed on your follow up instructions. Form: 338A ([id number]) R: 01/02 Follow Up Care 08/11/2022 13:44:36 With:REGINALDO HERNÁNDEZ PA-C, Orthopedic Address: [facility] [address] [place] [id number] When:03/07/2023 10:15:00 [facility] 02-24-2023 Note Discharge Instructions Thank you for allowing [facility] to assist you with your healthcare needs. The following is important discharge information regarding your hospital visit. Your Care Team [facility] Your Diagnosis Osteoarthritis Diabetes HTN (hypertension) Sleep apnea Status post total right knee replacement What to do next Follow Up Appointments Follow Up with REGINALDO HERNÁNDEZ PA-C, Orthopedic When 03/07/2023 10:15 AM EDT Where: [facility] [address] [place] [id number] The Following Activity and Diet Have Been Ordered for You Discharge Driving Restrictions - Ordered -- No driving permitted, No driving for 6 weeks postoperatively, 02/24/23 15:06:00 EDT Transfer of Care Activity - Ordered -- Weight Bearing Activity Permitted, Weightbearing as tolerated with walker, 02/24/23 15:06:00 EDT Transfer of Care Diet - Ordered -- Type of Diet: Regular Diet, 02/24/23 15:06:00 EDT The Following Equipment Has Been Ordered for You Discharge Home Equipment Transfer of Care Wound Care - Ordered -- Dressing Type: *Other (specify in special instructions), Knee, right, Cont Mepilex dressing and remove on February 27, 2023. Ok to shower with Mepilex dressing on. Once dressing removed only use gentle soap and water over the incisions. Do not place oin... The Following Treatments Have Been Ordered for You Discharge Labs No qualifying data available. Discharge Radiology No qualifying data available. Other Therapies Transfer of Care PT - Ordered -- Your therapy ordered is: Physical therapy, Reason for therapy: Right total knee arthroplasty, Weightbearing as tolerated with walker, 02/24/23 15:06:00 EDT Post Acute Orders Transfer of Care Admission Level of Care - Ordered -- Level of Care SNF, 02/24/23 15:06:57 EDT Transfer of Care Code Status - Ordered -- Full Code, Constant Order Transfer of Care Communication Order - Ordered -- Xarelto for 2 weeks postoperatively for DVT prophylaxis with stop date March 08, 2023. Begin aspirin 81 mg twice daily with food for an additional 2 weeks once finished with Xarelto., 02/24/23 15:06:57 EDT Transfer of Care Orders Electronically Signed By - Ordered -- 02/24/23 15:06:00 EDT, PJ MAHONEY MD Transfer of Care Prognosis - Ordered -- Good, Patient Aware: Yes Transfer of Care Rehab Potential - Ordered -- Rehab potential good, 02/24/23 15:06:57 EDT Someone Will Contact You Regarding These Home Health Referrals No home referrals have been ordered for you. No one will call you. Allergies niacin (ITCHING) Medications Please ask your primary doctor or pharmacist before taking any other medication not listed, including over the counter drugs, herbal medications, vitamins and or supplements as they may interact with your home medications. What How Much When Why Instructions Last Dose New acetaminophen (acetaminophen 500 mg oral tablet) 2 tab(s) by mouth Three (3) times a day as needed for as needed for pain Printed Prescription New docusate-senna (Senokot S) 2 tab(s) by mouth Two (2) times a day Duration: 2 Days Take until first bowel movement, then as needed New meloxicam (Mobic 7.5 mg oral tablet) 1 tab(s) by mouth Twice daily with meals New oxyCODONE (oxyCODONE 5 mg oral tablet ( IMMEDIATE release )) See instructions Status post total right knee replacement 1-2 tab(s) Oral q4h Printed Prescription New rivaroxaban (Xarelto 10 mg oral tablet) 1 tab(s) by mouth Once a day Continue Xarelto for 2 weeks postoperatively with stop date March 08, 2023 Changed gabapentin (gabapentin 100 mg oral capsule) 1 cap by mouth Three (3) times a day Unchanged atenolol (atenolol 25 mg oral tablet) 1 tab(s) by mouth Once a day Unchanged cholecalciferol (Vitamin D3) 25 Microgram by mouth Every day Unchanged cloNIDine (cloNIDine 0.1 mg oral tablet) 1 tab(s) by mouth Three (3) times a day Unchanged dulaglutide (Trulicity Pen 1.5 mg/ 0.5 mL subcutaneous solution) 4.5 Milligram Subcutaneous Every week FRIDAYS Unchanged escitalopram (escitalopram 20 mg oral tablet) 1 tab(s) by mouth Every day Unchanged folic acid (folic acid 1 mg oral tablet) 1 tab(s) by mouth Once a day Unchanged herbal/ nutritional product 2 tab(s) by mouth Every day ELDERBERRY CHEWABLES Unchanged herbal/ nutritional product (Probiotic) by mouth Every day Unchanged hydrOXYzine (hydrOXYzine hydrochloride 50 mg oral tablet) 2 tab(s) by mouth Once a day Unchanged insulin glargine (Lantus Solostar Pen 100 units/ mL 3 mL Pen) 45 unit(s) Subcutaneous Daily at bedtime Unchanged insulin lispro (HumaLOG) (HumaLOG KwikPen 100 units/ mL injectable PEN) 25 unit(s) Subcutaneous Three (3) times a day before meals 12 UNITS WITH SNACKS Unchanged leucovorin (leucovorin 5 mg oral tablet) 1 TAB WITH METHOTREXATE Unchanged levothyroxine (Synthroid 50 mcg (0.05 mg) oral tablet) 1 tab(s) by mouth Once a day Unchanged lisinopril (lisinopril 20 mg oral tablet) 1 tab(s) by mouth Once a day Unchanged LORazepam (LORazepam 1 mg oral tablet) 1 tab(s) by mouth Three (3) times a day as needed for as needed for anxiety Unchanged methotrexate (methotrexate 2.5 mg oral tablet) 8 tab(s) by mouth Every week FRIDAYS Unchanged multivitamin (B Complex 50 oral tablet) 1 tab(s) by mouth Every day Unchanged multivitamin with minerals (One-A-Day Women 50 Plus oral tablet) 1 tab(s) by mouth Every day Unchanged omeprazole (omeprazole 40 mg oral delayed release capsule) 1 cap by mouth Once a day Unchanged simvastatin (simvastatin 20 mg oral tablet) 1 tab(s) by mouth Daily at bedtime Unchanged tiZANidine (tiZANidine 4 mg oral tablet) take 1 tablet by mouth three times a day for 14 days Unchanged traZODone (traZODone 100 mg oral tablet) 1 tab(s) by mouth Daily at bedtime What How Much When Comments Stop Taking acetaminophen-oxyCODONE (acetaminophen-oxyCODONE 325 mg-5 mg oral tablet) 2 tab(s) by mouth Every 6 hours as needed for for pain Please take this list to your next doctor s visit. Bring all medications you take, including over the counter medications, herbals and other supplements with you to your doctor s visit. Patients and families are reminded to discard old lists and to update any records with all medication providers or retail pharmacies. Education Materials [facility] Post-operative Instructions PLEASE FOLLOW [facility] POST-OP INSTRUCTIONS GIVEN WATCH FOR SIGNS OF INFECTION: call the office ([phone]) if experencing any of the following: (Usually appears 36-48 hours after surgery) Increased temperature (101 degrees Fahrenheit or higher) Redness or swelling Increased uncontrolled pain Foul odor or drainage Calf discomfort Significant swelling Or if having any chest pain, shortness of breath, or difficulty breathing or swallowing call the office or go the nearest Emergency Room. If you have any questions, please call your doctor at the number listed on your follow up instructions. Form: 338A ([id number]) R: 01/02 Additional Information VACCINATE! IT SAVES LIVES! Members of the community who have not yet received the COVID-19 vaccine and would like to receive it can visit one of [facility] vaccine clinics. There are many vaccine clinic locations within the [facility]. For locations and available times, please visit [email or web address] It is important to note that some COVID mobile vaccine clinics are held outdoors and may be canceled in rainy or stormy conditions. To learn more about pediatric vaccinations (ages 5-11), we invite you to visit the [facility] webpage. [email or web address] To learn more about the COVID-19 vaccine, we invite you to visit the CDC website for a list of frequently asked questions.https://www.cdc.gov/co ronavirus/2019-ncov/vaccines/faq .html [facility] Patient Portal Access Instructions: Stay connected with your healthcare team and access your personal medical information anytime with the [facility] Patient Portal. Please follow the directions below to create your [facility] account: 1.Access the email account you provided upon registration to the hospital/physician office.2.Look for an invitation email from [facility].3.Open the email and access the invitation link: Accept Invitation to [facility].4.Fill in the required morocho to create your account. To access your account, visit [facility]. Click the blue button labeled Access Patient Portal and then log in with the username and password that you created in the steps above. You will be able to view your test results, lab results, a summary of your visits, upcoming appointments and more. There is also a convenient messaging option where you can send secure messages to your provider. In addition, you will have the ability to download any documents or summaries to your computer and/or send the information securely to a physician. Remember that your healthcare information is confidential, so carefully consider who you will allow to register on the [facility] Patient Portal for access to your information. You can also access the [facility] Patient Portal on the [facility] EHR Anywhere otoniel. Simply click on Patient Portal and then log into your account. If you would like to receive a full copy of your medical records, please contact the [facility] Medical Records Department by calling [phone], Tuesday through Tuesday between 8 a.m. and 4:30 p.m. HOW TO SAFELY DISPOSE OF PRESCRIPTION MEDICATIONS Please use one of the following methods to safely dispose of your unused medications. 1.Use a drug disposal kit: the drug disposal pouch allows you to safely discard your old and unused drugs. Ask your nurse to give you one when you are discharged.2.Visit a local take-back location: Many local pharmacies and police departments have programs that collect old and unwanted prescription drugs. Call your local pharmacy or go to http://xPeerient.Aptela/8O8Om7v to find one close to you.3.Make use of household items: Use cat litter or old coffee grounds to dispose medications if other options are not available. Mix your drugs with these household products, seal them in an airtight container and throw it into the garbage. Call [facility]: [phone] to be sure your drugs can be disposed of in this way. Some medicines may require a different approach.4.Never flush your medications down the toilet. IF YOU HAVE BEEN PRESCRIBED AN OPIOID FOR PAIN If you have been prescribed an opioid (such as hydrocodone, oxycodone or morphine), it is critical to understand the possible side effects and risks of opioid pain medications. Even when taken as directed, opioids can have several side effects including: Tolerance, meaning you might need to take more of a medication for the same pain relief. Nausea, vomiting and/or constipation. Sleepiness, dizziness, dry mouth, confusion, depression or itching. Physical dependence, meaning you have withdrawal symptoms when a medication is stopped, can develop within a few days. KNOW YOUR RESPONSIBILITIES It is important to know exactly how much and how often to take the opioid pain medications you are prescribed. Never take opioids in higher amounts or more often than prescribed. Do not combine opioids with alcohol or other drugs that cause drowsiness, such as benzodiazepines, also known as benzos, including diazepam and alprazolam, muscle relaxants or sleep aids. Never sell or share prescription opioids. This is illegal. Store opioids in a secure place and out of reach of others (including children, family, friends and visitors). The last page of this document has been signed and retained as a CHART COPY. Signatures Patient Education Materials 5 - [facility] Post-op Instruction 03/2017 ([id number]) Medication Leaflets My discharge plan and instructions have been reviewed and explained to me and I,FLEX SAVAGE understand my current condition and have read and understand these discharge instructions. I have received a written copy of the plan/instructions. If I have questions, I am aware that I should contact my doctor. 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 The following is important discharge information regarding your hospital visit. Your Care Team [facility] Care Team Your Diagnosis Osteoarthritis Diabetes HTN (hypertension) Sleep apnea Status post total right knee replacement What to do next Follow Up Appointments Follow Up with REGINALDO HERNÁNDEZ PA-C, Orthopedic When 03/07/2023 10:15 AM EDT Where: [facility] [address] [facility] [place] [address]- The Following Activity and Diet Have Been Ordered for You Discharge Driving Restrictions - Ordered -- No driving permitted, No driving for 6 weeks postoperatively, 02/24/23 15:06:00 EDT Transfer of Care Activity - Ordered -- Weight Bearing Activity Permitted, Weightbearing as tolerated with walker, 02/24/23 15:06:00 EDT Transfer of Care Diet - Ordered -- Type of Diet: Regular Diet, 02/24/23 15:06:00 EDT The Following Equipment Has Been Ordered for You Discharge Home Equipment Transfer of Care Wound Care - Ordered -- Dressing Type: *Other (specify in special instructions), Knee, right, Cont Mepilex dressing and remove on February 27, 2023. Ok to shower with Mepilex dressing on. Once dressing removed only use gentle soap and water over the incisions. Do not place oin... The Following Treatments Have Been Ordered for You Discharge Labs No qualifying data available. Discharge Radiology No qualifying data available. Other Therapies Transfer of Care PT - Ordered -- Your therapy ordered is: Physical therapy, Reason for therapy: Right total knee arthroplasty, Weightbearing as tolerated with walker, 02/24/23 15:06:00 EDT Post Acute Orders Transfer of Care Admission Level of Care - Ordered -- Level of Care SNF, 02/24/23 15:06:57 EDT Transfer of Care Code Status - Ordered -- Full Code, Constant Order Transfer of Care Communication Order - Ordered -- Xarelto for 2 weeks postoperatively for DVT prophylaxis with stop date March 08, 2023. Begin aspirin 81 mg twice daily with food for an additional 2 weeks once finished with Xarelto., 02/24/23 15:06:57 EDT Transfer of Care Orders Electronically Signed By - Ordered -- 02/24/23 15:06:00 EDT, PJ MAHONEY MD Transfer of Care Prognosis - Ordered -- Good, Patient Aware: Yes Transfer of Care Rehab Potential - Ordered -- Rehab potential good, 02/24/23 15:06:57 EDT Someone Will Contact You Regarding These Home Health Referrals No home referrals have been ordered for you. No one will call you. Allergies niacin (ITCHING) Medications Please ask your primary doctor or pharmacist before taking any other medication not listed, including over the counter drugs, herbal medications, vitamins and or supplements as they may interact with your home medications. What How Much When Why Instructions Last Dose New acetaminophen (acetaminophen 500 mg oral tablet) 2 tab(s) by mouth Three (3) times a day as needed for as needed for pain Printed Prescription 02/24 @ 09:07 New docusate-senna (Senokot S) 2 tab(s) by mouth Two (2) times a day Duration: 2 Days Take until first bowel movement, then as needed 02/24 @ 09:07 New meloxicam (Mobic 7.5 mg oral tablet) 1 tab(s) by mouth Twice daily with meals 02/24 @ 09:07 New oxyCODONE (oxyCODONE 5 mg oral tablet ( IMMEDIATE release )) See instructions Status post total right knee replacement 1-2 tab(s) Oral q4h Printed Prescription 02/24 @ 15:03 New rivaroxaban (Xarelto 10 mg oral tablet) 1 tab(s) by mouth Once a day Continue Xarelto for 2 weeks postoperatively with stop date March 08, 202302/24 @ 09:07 Changed gabapentin (gabapentin 100 mg oral capsule) 1 cap by mouth Three (3) times a day 02/24 @ 15:03 Unchanged atenolol (atenolol 25 mg oral tablet) 1 tab(s) by mouth Once a day 02/24 @ 09:07 Unchanged cholecalciferol (Vitamin D3) 25 Microgram by mouth Every day Unchanged cloNIDine (cloNIDine 0.1 mg oral tablet) 1 tab(s) by mouth Three (3) times a day 02/24 @ 09:07 Unchanged dulaglutide (Trulicity Pen 1.5 mg/ 0.5 mL subcutaneous solution) 4.5 Milligram Subcutaneous Every week FRIDAYS Unchanged escitalopram (escitalopram 20 mg oral tablet) 1 tab(s) by mouth Every day 02/24 @ 09:07 Unchanged folic acid (folic acid 1 mg oral tablet) 1 tab(s) by mouth Once a day Unchanged herbal/ nutritional product 2 tab(s) by mouth Every day ELDERBERRY CHEWABLES Unchanged herbal/ nutritional product (Probiotic) by mouth Every day Unchanged hydrOXYzine (hydrOXYzine hydrochloride 50 mg oral tablet) 2 tab(s) by mouth Once a day 02/24 @ 09:07 Unchanged insulin glargine (Lantus Solostar Pen 100 units/ mL 3 mL Pen) 45 unit(s) Subcutaneous Daily at bedtime 02/23 @ 22:07 Unchanged insulin lispro (HumaLOG) (HumaLOG KwikPen 100 units/ mL injectable PEN) 25 unit(s) Subcutaneous Three (3) times a day before meals 12 UNITS WITH SNACKS 02/24 @ 12:23 Unchanged leucovorin (leucovorin 5 mg oral tablet) 1 TAB WITH METHOTREXATE Unchanged levothyroxine (Synthroid 50 mcg (0.05 mg) oral tablet) 1 tab(s) by mouth Once a day 02/24 @ 05:36 Unchanged lisinopril (lisinopril 20 mg oral tablet) 1 tab(s) by mouth Once a day 02/24 @ 09:07 Unchanged LORazepam (LORazepam 1 mg oral tablet) 1 tab(s) by mouth Three (3) times a day as needed for as needed for anxiety 02/22 @ 20:00 Unchanged methotrexate (methotrexate 2.5 mg oral tablet) 8 tab(s) by mouth Every week FRIDAYS Unchanged multivitamin (B Complex 50 oral tablet) 1 tab(s) by mouth Every day Unchanged multivitamin with minerals (One-A-Day Women 50 Plus oral tablet) 1 tab(s) by mouth Every day 02/24 @ 12:23 Unchanged omeprazole (omeprazole 40 mg oral delayed release capsule) 1 cap by mouth Once a day Unchanged simvastatin (simvastatin 20 mg oral tablet) 1 tab(s) by mouth Daily at bedtime 02/23 @ 21:48 Unchanged tiZANidine (tiZANidine 4 mg oral tablet) take 1 tablet by mouth three times a day for 14 days Unchanged traZODone (traZODone 100 mg oral tablet) 1 tab(s) by mouth Daily at bedtime 02/23 @ 21:48 What How Much When Comments Stop Taking acetaminophen-oxyCODONE (acetaminophen-oxyCODONE 325 mg-5 mg oral tablet) 2 tab(s) by mouth Every 6 hours as needed for for pain Please take this list to your next doctor s visit. Bring all medications you take, including over the counter medications, herbals and other supplements with you to your doctor s visit. Patients and families are reminded to discard old lists and to update any records with all medication providers or retail pharmacies. Medication Leaflets oxycodone (ox i KOE done) Oxaydo, OxyCONTIN, Oxyfast, OxyIR, Roxicodone, Xtampza ER What is the most important information I should know about oxycodone? MISUSE OF OPIOID MEDICINE CAN CAUSE ADDICTION, OVERDOSE, OR . Keep the medication in a place where others cannot get to it. Taking opioid medicine during may cause life-threatening withdrawal symptoms in the . Fatal side effects can occur if you use opioid medicine with alcohol, or with other drugs that cause drowsiness or slow your breathing. What is oxycodone? Oxycodone is an opioid pain medication used to treat moderate to severe pain. The extended-release form of oxycodone is for lfskkz-bjg-irqzw treatment of pain and should not be used on an as-needed basis for pain. Oxycodone may also be used for purposes not listed in this medication guide. What should I discuss with my healthcare provider before using oxycodone? You should not use oxycodone if you are allergic to it, or if you have: severe asthma or breathing problems; or a blockage in your stomach or intestines. You should not use oxycodone unless you are already using a similar opioid medicine and are tolerant to it. Most brands of oxycodone are not approved for use in people under 18. OxyContin should not be given to a child younger than 11 years old. Tell your doctor if you have ever had: breathing problems, sleep apnea; a head injury, or seizures; drug or alcohol addiction, or mental illness; liver or kidney disease; urination problems; or problems with your gallbladder, pancreas, or thyroid. If you use opioid medicine while you are , your baby could become dependent on the drug. This can cause life-threatening withdrawal symptoms in the baby after it is born. Babies born dependent on opioids may need medical treatment for several weeks. Ask a doctor before using opioid medicine if you are . Tell your doctor if you notice severe drowsiness or slow breathing in the nursing baby. How should I use oxycodone? Follow the directions on your prescription label and read all medication guides. Never use oxycodone in larger amounts, or for longer than prescribed. Tell your doctor if you feel an increased urge to take more of this medicine. Never share opioid medicine with another person, especially someone with a history of drug abuse or addiction. MISUSE CAN CAUSE ADDICTION, OVERDOSE, OR . Keep the medication in a place where others cannot get to it. Selling or giving away opioid medicine is against the law. Stop taking all other qmeoxy-tot-pnnzt opioid pain medicines when you start taking extended-release oxycodone. Take oxycodone with food. Swallow the capsule or tablet whole to avoid exposure to a potentially fatal overdose. Do not crush, chew, break, open, or dissolve. If you cannot swallow a capsule whole, open it and sprinkle the medicine into a spoonful of pudding or applesauce. Swallow the mixture right away without chewing. Do not save it for later use. Never crush or break an oxycodone pill to inhale the powder or mix it into a liquid to inject the drug into your vein. This can cause in . Measure liquid medicine carefully. Use the dosing syringe provided, or use a medicine dose-measuring device (not a kitchen spoon). You should not stop using oxycodone suddenly. Follow your doctor's instructions about tapering your dose. Store at room temperature, away from heat, moisture, and light. Keep track of your medicine. Oxycodone is a drug of abuse and you should be aware if anyone is using your medicine improperly or without a prescription. Do not keep leftover opioid medication. Just one dose can cause in someone using this medicine accidentally or improperly. Ask your pharmacist where to locate a drug take-back disposal program. If there is no take-back program, flush the unused medicine down the toilet. What happens if I miss a dose? Since oxycodone is used for pain, you are not likely to miss a dose. Skip any missed dose if it is almost time for your next dose. Do not use two doses at one time. What happens if I overdose? Seek emergency medical attention or call the Poison Help line at . An opioid overdose can be fatal, especially in a child or other person using the medicine without a prescription. Overdose symptoms may include severe drowsiness, pinpoint pupils, slow breathing, or no breathing. Your doctor may recommend you get naloxone (a medicine to reverse an opioid overdose) and keep it with you at all times. A person caring for you can give the naloxone if you stop breathing or don't wake up. Your caregiver must still get emergency medical help and may need to perform CPR (cardiopulmonary resuscitation) on you while waiting for help to arrive. Anyone can buy naloxone from a pharmacy or local health department. Make sure any person caring for you knows where you keep naloxone and how to use it. What should I avoid while using oxycodone? Do not drink alcohol. Dangerous side effects or could occur. Avoid driving or operating machinery until you know how oxycodone will affect you. Dizziness or severe drowsiness can cause falls or other accidents. Avoid medication errors. Always check the brand and strength of oxycodone you get from the pharmacy. What are the possible side effects of oxycodone? Get emergency medical help if you have signs of an allergic reaction: hives; difficult breathing; swelling of your face, lips, tongue, or throat. Opioid medicine can slow or stop your breathing, and may occur. A person caring for you should give naloxone and/or seek emergency medical attention if you have slow breathing with long pauses, blue colored lips, or if you are hard to wake up. Call your doctor at once if you have: noisy breathing, sighing, shallow breathing, breathing that stops during sleep; a slow heart rate or weak pulse; a light-headed feeling, like you might pass out; confusion, unusual thoughts or behavior; seizure (convulsions); low cortisol levels-- nausea, vomiting, loss of appetite, dizziness, worsening tiredness or weakness; or high levels of serotonin in the body--agitation, hallucinations, fever, sweating, shivering, fast heart rate, muscle stiffness, twitching, loss of coordination, nausea, vomiting, diarrhea. Serious breathing problems may be more likely in older adults and in those who are debilitated or have wasting syndrome or chronic breathing disorders. Common side effects may include: drowsiness, headache, dizziness, tiredness; or constipation, stomach pain, nausea, vomiting. This is not a complete list of side effects and others may occur. Call your doctor for medical advice about side effects. You may report side effects to FDA at 1-824-GGW-8836. What other drugs will affect oxycodone? You may have breathing problems or withdrawal symptoms if you start or stop taking certain other medicines. Tell your doctor if you also use an antibiotic, antifungal medication, heart or blood pressure medication, seizure medication, or medicine to treat HIV or hepatitis C. Opioid medication can interact with many other drugs and cause dangerous side effects or . Be sure your doctor knows if you also use: cold or allergy medicines, bronchodilator asthma/COPD medication, or a diuretic ('water pill'); medicines for motion sickness, irritable bowel syndrome, or overactive bladder; other opioids--opioid pain medicine or prescription cough medicine; a sedative like Valium--diazepam, alprazolam, lorazepam, Xanax, Klonopin, Versed, and others; drugs that make you sleepy or slow your breathing--a sleeping pill, muscle relaxer, medicine to treat mood disorders or mental illness; or drugs that affect serotonin levels in your body--a stimulant, or medicine for depression, Parkinson's disease, migraine headaches, serious infections, or nausea and vomiting. This list is not complete and many other drugs may affect oxycodone. This includes prescription and vjuc-vco-[id number] medicines, vitamins, and herbal products. Not all possible drug interactions are listed here. Where can I get more information? Your pharmacist can provide more information about oxycodone. Remember, keep this and all other medicines out of the reach of children, never share your medicines with others, and use this medication only for the indication prescribed. Every effort has been made to ensure that the information provided by [employer]. ('[employer]') is accurate, up-to-date, and complete, but no guarantee is made to that effect. Drug information contained herein may be time sensitive. [employer] information has been compiled for use by healthcare practitioners and consumers in the [place] and therefore [employer] does not warrant that uses outside of the [place] are appropriate, unless specifically indicated otherwise. [employer]'s drug information does not endorse drugs, diagnose patients or recommend therapy. [employer] drug information is an informational resource designed to assist licensed healthcare practitioners in caring for their patients and/or to serve consumers viewing this service as a supplement to, and not a substitute for, the expertise, skill, knowledge and judgment of healthcare practitioners. The absence of a warning for a given drug or drug combination in no way should be construed to indicate that the drug or drug combination is safe, effective or appropriate for any given patient. [employer] does not assume any responsibility for any aspect of healthcare administered with the aid of information [employer] provides. The information contained herein is not intended to cover all possible uses, directions, precautions, warnings, drug interactions, allergic reactions, or adverse effects. If you have questions about the drugs you are taking, check with your doctor, nurse or pharmacist. Copyright 9504-0985 [employer]. Version: 14.02. Revision Date: 09/25/2020. Education Materials [facility] Post-operative Instructions PLEASE FOLLOW [facility] POST-OP INSTRUCTIONS GIVEN WATCH FOR SIGNS OF INFECTION: call the office ([phone]) if experencing any of the following: (Usually appears 36-48 hours after surgery) Increased temperature (101 degrees Fahrenheit or higher) Redness or swelling Increased uncontrolled pain Foul odor or drainage Calf discomfort Significant swelling Or if having any chest pain, shortness of breath, or difficulty breathing or swallowing call the office or go the nearest Emergency Room. If you have any questions, please call your doctor at the number listed on your follow up instructions. Form: 338A (54689) R: 01/02 Additional Information VACCINATE! IT SAVES LIVES! Members of the community who have not yet received the COVID-19 vaccine and would like to receive it can visit one of [facility] vaccine clinics. There are many vaccine clinic locations within the [facility]. For locations and available times, please visit [email or web address].o hio.gov/. It is important to note that some COVID mobile vaccine clinics are held outdoors and may be canceled in rainy or stormy conditions. To learn more about pediatric vaccinations (ages 5-11), we invite you to visit the [facility] webpage. [email or web address] [email or web address]-Freq [email or web address]-[email or web address] To learn more about the COVID-19 vaccine, we invite you to visit the CDC website for a list of frequently asked questions.https://www.cdc.gov/co ronavirus/2019-ncov/vaccines/faq .html [facility] Patient Portal Access Instructions: Stay connected with your healthcare team and access your personal medical information anytime with the [facility] Patient Portal. Please follow the directions below to create your [facility] account: 1.Access the email account you provided upon registration to the hospital/physician office.2.Look for an invitation email from [facility].3.Open the email and access the invitation link: Accept Invitation to [facility].4.Fill in the required morocho to create your account. To access your account, visit [facility]. Click the blue button labeled Access Patient Portal and then log in with the username and password that you created in the steps above. You will be able to view your test results, lab results, a summary of your visits, upcoming appointments and more. There is also a convenient messaging option where you can send secure messages to your provider. In addition, you will have the ability to download any documents or summaries to your computer and/or send the information securely to a physician. Remember that your healthcare information is confidential, so carefully consider who you will allow to register on the [facility] for access to your information. You can also access the [facility] on the [place] [facility] o[facility]iel. Simply click on Patient Portal and then log into your account. If you would like to receive a full copy of your medical records, please contact the [facility] Medical Records Department by calling [phone], Tuesday through Tuesday between 8 a.m. and 4:30 p.m. HOW TO SAFELY DISPOSE OF PRESCRIPTION MEDICATIONS Please use one of the following methods to safely dispose of your unused medications. 1.Use a drug disposal kit: the drug disposal pouch allows you to safely discard your old and unused drugs. Ask your nurse to give you one when you are discharged.2.Visit a local take-back location: Many local pharmacies and police departments have programs that collect old and unwanted prescription drugs. Call your local pharmacy or go to http://Time To Cater/2S4Qk6w to find one close to you.3.Make use of household items: Use cat litter or old coffee grounds to dispose medications if other options are not available. Mix your drugs with these household products, seal them in an airtight container and throw it into the garbage. Call [facility]: [phone] to be sure your drugs can be disposed of in this way. Some medicines may require a different approach.4.Never flush your medications down the toilet. IF YOU HAVE BEEN PRESCRIBED AN OPIOID FOR PAIN If you have been prescribed an opioid (such as hydrocodone, oxycodone or morphine), it is critical to understand the possible side effects and risks of opioid pain medications. Even when taken as directed, opioids can have several side effects including: Tolerance, meaning you might need to take more of a medication for the same pain relief. Nausea, vomiting and/or constipation. Sleepiness, dizziness, dry mouth, confusion, depression or itching. Physical dependence, meaning you have withdrawal symptoms when a medication is stopped, can develop within a few days. KNOW YOUR RESPONSIBILITIES It is important to know exactly how much and how often to take the opioid pain medications you are prescribed. Never take opioids in higher amounts or more often than prescribed. Do not combine opioids with alcohol or other drugs that cause drowsiness, such as benzodiazepines, also known as benzos, including diazepam and alprazolam, muscle relaxants or sleep aids. Never sell or share prescription opioids. This is illegal. Store opioids in a secure place and out of reach of others (including children, family, friends and visitors). The last page of this document has been signed and retained as a CHART COPY. Signatures Patient Education Materials [facility] Post-op Instruction 03/2017 ([id number]) Medication Leaflets oxycodone My discharge plan and instructions have been reviewed and explained to me and I,FLEX SAVAGE understand my current condition and have read and understand these discharge instructions. I have received a written copy of the plan/instructions. If I have questions, I am aware that I should contact my doctor. 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 Patient denies any chest pain, shortness of breath, dizziness, lightheadedness, nausea or vomiting, or calf pain. No adverse overnight events. Pain has been controlled on medications. Patient was evaluated by physical therapy. Discharge planning is possible home health versus care home facility. She has had a previous left total knee arthroplasty that did require care home facility in the past. She states she went to [facility]. We do have physical therapy currently on board assessing patient for appropriate discharge planning. Case management is on board as well. Patient is on chronic Percocet for chronic pain in which she is followed by pain management. She had a recent refill of medications several days ago from pain management. She also has pain pump. Objective Vitals and Measurements T: 36.3 C (Oral) TMIN: 35.7 C (Temporal Artery) TMAX: 36.9 C (Temporal Artery) HR: 69(Monitored) RR: 16 BP: 135/71 SpO2: 91% HT: 162.6 cm WT: 110 kg BMI: 41.61 Intake and Output 7AM Yesterday to 7AM Today Intake and Output (Last 24 hours) Intake Administration Information 1000.00 Oral Intake 660.00 Supplement Intake 0.00 Output Intra-Op EBL 300.00 Stool Count 0.00 Urine Count 4.00 Total Summary Total Intake 1660.00 Total Output 300.00 Fluid Balance 1360.00 Physical Exam Vital signs stable, afebrile SCDs and ARIADNA hose are in place bilaterally Patient is able to plantarflex and dorsiflex actively Sensation is intact to saphenous, sural, superficial and deep peroneal, and tibial distribution Proximal pin site dressing and main Mepilex dressing is clean dry and intact. There is moderate drainage over the distal pin site Negative signs and symptoms of DVT, negative Homans bilaterally Weight Dosing Weight: 110 kg (02/22/23) Dosing Weight: 110 kg (02/22/23) Medications Medications (34) Active Scheduled: (23) acetaminophen 500 mg Tablet 1,000 mg 2 tab(s), Oral, q6hr atenolol 25 mg Tablet 25 mg 1 tab(s), Oral, qDay atorvastatin 10 mg tablet 10 mg 1 tab(s), Oral, qHS bisacodyl 5 mg EC tablet 10 mg 2 tab(s), Oral, Once clonidine 0.1 mg tablet 0.1 mg 1 tab(s), Oral, TID docusate sodium 100 mg Capsule 100 mg 1 cap(s), Oral, BID docusate-senna (Senokot S) 50 mg-8.6 mg Tablet 2 tab(s), Oral, BID escitalopram 10 mg tablet 20 mg 2 tab(s), Oral, Daily famotidine 20 mg tablet 20 mg 1 tab(s), Oral, qDay gabapentin 300 mg Capsule 300 mg 1 cap(s), Oral, TID hydroxyzine hcl 10 mg Tablet 100 mg 10 tab(s), Oral, qDay insulin glargine 100 units/ml solution 45 unit(s) 0.45 mL, Subcutaneous, qHS insulin lispro 100 units/mL Soln (3 mL) Give 0-5 units/dose, Subcutaneous, TIDAC levothyroxine 50 mcg tablet 50 mcg 1 tab(s), Oral, qDay lisinopril 20 mg tablet 20 mg 1 tab(s), Oral, qDay magnesium hydroxide 8% Suspension 30 mL UD 30 mL, Oral, Daily meloxicam 7.5 mg tablet 7.5 mg 1 tab(s), Oral, BIDM multivitamin (Myadec) with minerals Therapeutic Multiple Vitamins with Minerals Tablet 1 tab(s), Oral, qDayM ondansetron 2 mg/ 1 mL 2 mL INJ 4 mg 2 mL, IV Push, q8h rivaroxaban 10 mg tablet 10 mg 1 tab(s), Oral, qDay tiZANidine 4 mg tablet 4 mg 1 tab(s), Oral, TID tranexamic acid PMX 1 gram(s) 100 mL, IV Piggyback, AsDirected traZODONE 50 mg Tablet 100 mg 2 tab(s), Oral, qHS Continuous: (0) PRN: (11) acetaminophen 325 mg Tablet 650 mg 2 tab(s), Oral, q4h diphenhydramine 25 mg tablet 25 mg 1 tab(s), Oral, q6h diphenhyDRAMINE 50 mg/mL (1 mL) INJ 25 mg 0.5 mL, IV Push, q6h ketorolac 30 mg/mL (1 mL) vial 15 mg 0.5 mL, IV Push, q6h LORAZEPam 0.5 mg tablet 1 mg 2 tab(s), Oral, TID morphine 2 mg/mL 1 mL syringe 2 mg 1 mL, IV Push, q1h ondansetron 2 mg/ 1 mL 2 mL INJ 4 mg 2 mL, IV Push, q8h oxycodone 5 mg tablet (immediate release) 5 mg 1 tab(s), Oral, q4h oxycodone 5 mg tablet (immediate release) 10 mg 2 tab(s), Oral, q4h prochlorperazine 10 mg/2 mL vial 5 mg 1 mL, IV Push, q6h sodium biphosphate-sodium phosphate 19 gm-7 gm Enema 133 mL, Rectal, qDay Lab Results 02/23 05:45 WBC: 10.9 H Hgb: 11.6 L Hct: 34.9 L Platelet: 231 Neutrophil %: 82.3 H Glucose Level: 239 H Sodium Level: 141 Potassium Level: 4.8 BUN: 17 Creatinine Lvl (s): 1.09 H EKG No qualifying data available. Assessment/Plan 1. Status post right total knee arthroplasty postop day #1 2. Continue pain medications: Oxycodone, Tylenol, and meloxicam. Do not take any other nonsteroidal anti-inflammatories while on meloxicam/Mobic 3. DVT prophylaxis: Due to past history of pulmonary embolism patient is currently on Xarelto for 2 weeks following surgery. After 2 weeks of Xarelto she will be switched over to aspirin 81 mg twice daily for an additional 2 weeks. This was discussed in detail with the patient and she voiced understanding and agreement. 4. Physical therapy: Weightbearing as tolerated with walker. Appreciate recommendations for discharge planning 5. H & H: 11.6/34.9, asymptomatic. Postoperative anemia secondary to acute blood loss from surgery without intraoperative complications. 6. Reactive leukocytosis: Currently 10.9, afebrile. Patient did receive Decadron intraoperatively 7. Encouraged incentive spirometry 8. Continue postoperative medical management per medicine 9. Disposition: Discharge planning will be based on physical therapy assessment today. Plan will be for possible discharge home with home health for care home facility. Patient does have steps to manage at home with no railing. She does have who will be present and available for assistance at home. Case management is currently involved. She will continue current pain medications. She does take chronic pain medications and managed by pain management. She also has pain pump. At this time her pain is currently controlled. We will also continue with the Xarelto postoperatively due to the past history of pulmonary embolism. I have reviewed the [place] Automated Rx Reporting System (OARRS) report for this patient for refill pattern and other prescriber involvement as part of the appropriate surveillance for the provision of acute and chronic controlled medications. The report was requested and reviewed on the date of this entry, and was considered in the prescribing process This dictation was created using voice recognition software. Phonetic and/or grammatical errors may exist. Digitally Signed by REGINALDO HERNÁNDEZ PA-C on 02/23/2023 07:28 AM [facility] 02-22-2023 Note ORIGINAL EXAMINATION: TWO XRAY VIEWS OF THE RIGHT KNEE02/22/2023 12:37 pm XR portable AP and cross-table lateral two views COMPARISON: CT 02/03/2023 HISTORY: ORDERING SYSTEM PROVIDED HISTORY: Reason for Exam: Status Post Arthroplasty, Status Post Arthroplasty , check prosthesis alignment FINDINGS: The right knee joint has been replaced with a prosthesis that show satisfactory alignment. There are expected postoperative changes in the soft tissues. IMPRESSION: Expected postoperative appearance following right knee replacement surgery. Interpreted by: Jey Fabian MD Preliminary Report By: Jey Fabian MD Electronically signed By Jey Fabian MD Dictated Date: 02/22/2023 1:06:37 PM Prelim Date: 02/22/2023 1:07:27 PM Sign Date: 02/22/2023 1:07:27 PM Ordering Provider: [facility] 02-22-2023 Note ORIGINAL EXAMINATION: TWO XRAY VIEWS OF THE RIGHT KNEE02/22/2023 12:37 pm XR portable AP and cross-table lateral two views COMPARISON: CT 02/03/2023 HISTORY: ORDERING SYSTEM PROVIDED HISTORY: Reason for Exam: Status Post Arthroplasty, Status Post Arthroplasty , check prosthesis alignment FINDINGS: The right knee joint has been replaced with a prosthesis that show satisfactory alignment. There are expected postoperative changes in the soft tissues. IMPRESSION: Expected postoperative appearance following right knee replacement surgery. Interpreted by: Jey Fabian MD Preliminary Report By: Jey Fabian MD Electronically signed By Jey Fabian MD Dictated Date: 02/22/2023 1:06:37 PM Prelim Date: 02/22/2023 1:07:27 PM Sign Date: 02/22/2023 1:07:27 PM Ordering Provider: [facility] 02-22-2023 Anesthesiology Consult note Patient: FLEX SAVAGE Age: 62 years Sex: Female : 1960 Associated Diagnoses: None Author: MARTINA GOODWIN APRN-GEOGRAPHIC AREA INTELLIGENCE OFFICER Preoperative Information Time of last food or liquid consumption: 02/21/2023 23:59:00 Anesthesia history Patient's history: negative. Family's history: negative. Review of Systems Ear/Nose/Mouth/Throat: Negative except as documented in history of present illness. Respiratory: Negative except as documented in history of present illness. Cardiovascular: Negative except as documented in history of present illness. Gastrointestinal: Negative except as documented in history of present illness. Genitourinary: Negative except as documented in history of present illness. Endocrine: Negative except as documented in history of present illness. Musculoskeletal: Negative except as documented in history of present illness. Integumentary: Negative except as documented in history of present illness. Neurologic: Negative except as documented in history of present illness. Health Status Allergies: Allergic Reactions (Selected) Severity Not Documented Niacin- Itching., Allergies (1) ActiveReaction niacinITCHING Current medications: (Selected) Inpatient Medications Ordered Betadine 10% topical solution: 17.5 mL, mL/hr, Topical (INT), PREOP pharm Bicitra: 30 mL, Oral, PREOP pharm Bolus LR 1000 mL: 1,000 mL, IV Bolus, PREOP pharm CeleBREX: 400 mg, 2 cap(s), Oral, PREOP pharm Decadron: 10 mg, 1 mL, IV Push, AsDirected Kefzol: 2 gram(s), 200 mL/hr, IV Piggyback, PREOP pharm LR 1,000 mL: 125 mL/hr, Intravenous, Stop: 02/22/23 23:59:00 EDT Naropin 25 mg + Toradol 15 mg + EPINEPHrine 1 mg/mL injectable solution 0.3 mg + morphine 2.5 mg...: 25 mg, 5 mL, mL/hr, Other, PREOP pharm Naropin 25 mg + Toradol 15 mg + EPINEPHrine 1 mg/mL injectable solution 0.3 mg + morphine 2.5 mg...: 25 mg, 5 mL, mL/hr, Other, PREOP pharm OxyCONTIN: 10 mg, 1 tab(s), Oral, PREOP pharm Pepcid IV: 20 mg, 2 mL, IV Push, PREOP pharm tranexamic acid 1 g / 100 mL 0.7% NaCl PMX: 1 gram(s), 100 mL, 300 mL/hr, IV Piggyback, AsDirected tranexamic acid 1 g / 100 mL 0.7% NaCl PMX: 1 gram(s), 100 mL, 300 mL/hr, IV Piggyback, AsDirected Documented Medications Documented B Complex 50 oral tablet: 1 tab(s), Oral, Daily, 30 tab(s), 0 Refill(s) HumaLOG KwikPen 100 units/mL injectable PEN: 25 unit(s), Subcutaneous, TIDAC, 12 UNITS WITH SNACKS, 0 Refill(s) LORazepam 1 mg oral tablet: 1 mg, 1 tab(s), Oral, TID, PRN: as needed for anxiety, 0 Refill(s) Lantus Solostar Pen 100 units/mL 3 mL Pen: 45 unit(s), Subcutaneous, qHS, 3 mL, 0 Refill(s) One-A-Day Women 50 Plus oral tablet: 1 tab(s), Oral, Daily, 30 tab(s), 0 Refill(s) Probiotic: Oral, Daily, 0 Refill(s) Synthroid 50 mcg (0.05 mg) oral tablet: 50 mcg, 1 tab(s), Oral, qDay, 30 tab(s), 0 Refill(s) Trulicity Pen 1.5 mg/0.5 mL subcutaneous solution: 4.5 mg, Subcutaneous, qWeek, FRIDAYS, 0 Refill(s) Vitamin D3: 25 mcg, 1 tab(s), Oral, Daily, 30 tab(s), 0 Refill(s) acetaminophen-oxyCODONE 325 mg-5 mg oral tablet: 2 tab(s), Oral, q6h, PRN: for pain, 12 tab(s), 0 Refill(s) atenolol 25 mg oral tablet: 25 mg, 1 tab(s), Oral, qDay, 30 tab(s), 0 Refill(s) cloNIDine 0.1 mg oral tablet: 0.1 mg, 1 tab(s), Oral, TID, 180 tab(s), 0 Refill(s) escitalopram 10 mg oral tablet: 0 Refill(s) folic acid 1 mg oral tablet: 1 mg, 1 tab(s), Oral, qDay, 30 tab(s), 0 Refill(s) gabapentin 300 mg oral capsule: take 1 capsule by mouth three times a day herbal/nutritional product: 2 tab(s), Oral, Daily, ELDERBERRY CHEWABLES, 0 Refill(s) hydrOXYzine hydrochloride 50 mg oral tablet: 100 mg, 2 tab(s), Oral, qDay, 30 tab(s), 0 Refill(s) leucovorin 5 mg oral tablet: 1 TAB WITH METHOTREXATE, 0 Refill(s) lisinopril 20 mg oral tablet: 20 mg, 1 tab(s), Oral, qDay, 30 tab(s), 0 Refill(s) methotrexate 2.5 mg oral tablet: 20 mg, 8 tab(s), Oral, qWeek, FRIDAYS, 72 tab(s), 0 Refill(s) omeprazole 40 mg oral delayed release capsule: 40 mg, 1 cap(s), Oral, qDay, 30 cap(s), 0 Refill(s) simvastatin 20 mg oral tablet: 20 mg, 1 tab(s), Oral, qHS, 30 tab(s), 0 Refill(s) tiZANidine 4 mg oral tablet: take 1 tablet by mouth three times a day for 14 days traZODone 100 mg oral tablet: 100 mg, 1 tab(s), Oral, qHS, 0 Refill(s), Medications (13) Active Scheduled: (12) ceFAZolin 2 gram(s), IV Piggyback, PREOP pharm celecoxib 200 mg capsule 400 mg 2 cap(s), Oral, PREOP pharm citric acid-sodium citrate 334 mg-500 mg/5 mL (30 mL) Maci UD 30 mL, Oral, PREOP pharm dexamethasone 10 mg/mL (1mL) SDV 10 mg 1 mL, IV Push, AsDirected famotidine 20 mg/2 mL vial 20 mg 2 mL, IV Push, PREOP pharm Lactated Ringers Injection 1000 mL * Bolus * 1,000 mL, IV Bolus, PREOP pharm oxyCODONE 10 mg ER tablet 10 mg 1 tab(s), Oral, PREOP pharm povidone iodine topical 17.5 mL, Topical (INT), PREOP pharm ropivacaine 25 mg + ketorolac 15 mg + epinephrine 0.3 mg + morphine 2.5 mg 25 mg 5 mL, Other, PREOP pharm ropivacaine 25 mg + ketorolac 15 mg + epinephrine 0.3 mg + morphine 2.5 mg 25 mg 5 mL, Other, PREOP pharm tranexamic acid PMX 1 gram(s) 100 mL, IV Piggyback, AsDirected tranexamic acid PMX 1 gram(s) 100 mL, IV Piggyback, AsDirected Continuous: (1) Lactated Ringers 1,000 mL 1,000 mL, Intravenous, 125 mL/hr PRN: (0) Problem list: No problem items selected or recorded., Active Problems (7) Anxiety Diabetes HTN (hypertension) Hyperlipidemia Hypothyroid Osteoarthritis Sleep apnea Histories Past Medical History: No active or resolved past medical history items have been selected or recorded. Family History: Breast cancer Sister Diabetes Mother Sister Procedure history: Bunionectomy ([id number]). Comments: 02/03/2023 13:48 Hansa Álvarez RN BILATERAL Plantar fasciectomy ([id number]). Comments: 02/03/2023 13:48 Hansa Álvarez RN LEFT Fusion of lumbosacral region of spine by posterior approach ([id number]). Carpal tunnel release ([id number]). Comments: 02/03/2023 13:50 Hansa Álvarez RN BILATERAL Tonsillectomy and adenoidectomy ([id number]). Tubal ligation ([id number]). Hysterectomy ([id number]). Pump, device ([id number]). Comments: 02/03/2023 13:51 Hansa Álvarez RN PAIN PUMP Total knee arthroplasty ([id number]). Comments: 02/03/2023 13:52 Hansa Álvarez RN LEFT Social History Social & Psychosocial Habits Alcohol 02/03/2023 Use: Never Substance Abuse 02/03/2023 Use: Never Tobacco 02/03/2023 Tobacco Use: Never (less than 100 in l Home/Environment 02/03/2023 Domestic Concerns None Living situation: Home/Independent . Physical Examination Vital Signs 02/22/2023 9:31 EDT Temperature Temporal Artery 36.9 DegC Apical Heart Rate 65 bpm Respiratory Rate 17 br/min Systolic Blood Pressure Non-Invasive 136 mmHg Diastolic Blood Pressure Non-Invasive 77 mmHg Vital Signs(last 24 hrs) Last Charted Resp Rate 17 br/min (FEB 22 09:31) [id number] mmHg (FEB 22 09:31) DBP77 mmHg (FEB 22 09:31) Measurements from flowsheet : Measurements 02/22/2023 9:31 EDT Height 162.6 cm Admission Weight 110 kg [place] Body Weight 54.74 kg Admission Body Mass Index 41.61 m2 02/22/2023 9:29 EDT Body Mass Index In Error kg/m2 (In Error) Pain assessment: Pain Assessment 02/22/2023 9:31 EDT Primary Pain Intensity 9 Pain Scale Type 0-10 Pain scale . General: Alert and oriented. Airway: Normal neck range of motion. Mallampati classification: II (soft palate, fauces, uvula visible). Head: Normocephalic. Dentition Evaluation: Intact, Own teeth. Neck: Full range of motion. Respiratory: Lungs are clear to auscultation. Cardiovascular: Normal rate. Heart Sounds: Normal. Gastrointestinal: Soft. Musculoskeletal Normal range of motion. Integumentary: Intact, Warm, Dry. Neurologic: Alert, Oriented. Review / Management Results review: No qualifying data available , Lab results 02/22/2023 9:58 EDT Hand Left 02/22/2023 20 gauge Peripheral IV Activity: Insert new site Peripheral IV Dressing Condition: Clean, Dry, Intact Peripheral IV Dressing Activity: Applied, Transparent dressing Peripheral IV Line Status/Patency: Flushes easily, Continuous infusion Peripheral IV Line Care: Secured with tape Peripheral IV Site Condition: No complications Peripheral IV Number of Attempts: 1 02/22/2023 9:56 EDT SN - CAt - Case Attendee SN - CAt - Case Attendee SN - CAt - Role Performed Primary Surgeon 02/22/2023 9:31 EDT Height 162.6 cm Admission Weight 110 kg [place] Body Weight 54.74 kg Admission Body Mass Index 41.61 m2 Temperature Temporal Artery 36.9 DegC Apical Heart Rate 65 bpm Respiratory Rate 17 br/min Systolic Blood Pressure Non-Invasive 136 mmHg Diastolic Blood Pressure Non-Invasive 77 mmHg Primary Pain Intensity 9 Pain Scale Type 0-10 Pain scale Heart Rhythm Regular Respirations Unlabored Respiratory Pattern Regular Breath Sounds Auscultated Anterior only All Lobes Breath Sounds Clear Cough None Oxygen Therapy Room air Oxygen Saturation 94 % Abdomen Description Non-distended, Soft Abdomen Palpation Non-Tender Bowel Sounds All Quadrants Present Urinary Elimination Voiding, no difficulties Skin Temperature Warm Skin Description [place], Normal for ethnicity, Dry Skin Integrity Intact Mucous Membrane Color [place] Skin Moisture General Dry IV Present Present Neurological Symptoms Patient denies Extremity Movement Equal Characteristics of Speech Clear Level of Consciousness Alert Strength All Extremities Weak Tone All Extremities Normal Sensation All Extremities Intact Affect/Behavior Appropriate, Calm, Cooperative Orientation Oriented x 4 Allergies Yes Consent Form Signed Yes Patient Dressed In Hospital gown, No undergarments Pre-op Preparation Glasses not removed, Undergarments removed CHG Preoperative Wash/Wipe Night before procedure, Day of procedure Preop Nasal Swab Povidone-Iodine History & Physical Update On Chart Yes History & Physical On Chart Yes Obstructive Sleep Apnea Assess Completed Yes Orientation Assessment Oriented x 4 Activity Status ADL Awake, Resting SCD On/Re-applied left knee high Antiembolism Stocking On/Re-applied left thigh high NPO Status Maintained Standard Safety ID band on, Allergy Band on, Call device within reach, Bed in low position, Wheels locked, personal items within reach, Visitor at bedside, Non-Slip footwear Allergy Band on and Verified Yes Patient ID Band on and Verified Yes Implants Verified Yes Pacemaker/AICD Verified Yes Site Verified by Patient/Family Yes Anesthesia Consent Signed Yes Blood Consent Signed Yes Last Fluid Intake 02/21/2023 7:00 Last Food Intake 02/21/2023 22:00 Last Void 02/22/2023 9:33 02/22/2023 9:29 EDT Body Mass Index In Error kg/m2 (In Error) High Risk for Sleep Apnea Yes Infectious Disease Symptoms Patient states no symptoms Safety Brochure Information Reviewed Yes Elsy Benavidez Video Viewed No Teaching Evaluation No further teaching needed Admission Note-Nursing Same Day Patient History (Modified) . Assessment and Plan [place] [employer]hesi[employer] (ASA) physical status classification: Class III. Anesthetic Preoperative Plan Premedication: intravenous. Anesthetic technique: General, Regional. Induction: intravenously. Maintenance airway: Oral endotracheal tube. Regional: Adductor Canal Block. Postoperative pain management: Per surgeon. Risks discussed: nausea, vomiting, headache, sore throat, dental injury, hypotension, allergic reaction, serious complications. Informed consent: signed by patient. Notes: Anxiety; HTN; T2DM Hgb A1C 6.7%; SEDA; HLD; Back pain- existing Dilaudid pain pump in abdomen. Digitally Signed by MARTINA GOODWIN on 02/22/2023 10:01 AM Digitally Signed by MARTINA GOODWIN on 02/22/2023 10:02 AM Digitally Signed by MARTINA GOODWIN on 02/22/2023 10:56 AM Digitally Signed by MARTINA GOODWIN on 02/22/2023 10:59 AM [facility] Elsy Carlson 10-05-2022 Note Attestation signed by Renata Givens MD at 10/05/2022 2:06 PM I saw and evaluated the patient, participating in the syed portions of the service. I reviewed the resident?s note. I agree with the resident?s findings and plan. DISCHARGE SUMMARY Patient ID: Flex Savage [id number] 62 y.o. 1960 Admit date: 10/01/2022 Discharge date: 10/05/22 Admitting Physician: Renata Givens MD Discharge Diagnoses: Major depressive disorder, recurrent, severe without psychotic features Anxiety, unspecified SEDA Discharge Physician: Renata Givens MD Admission Diagnoses: Suicidal ideation [R45.851] Major depressive disorder, recurrent, severe without psychotic behavior (HCC) [F33.2] Admission Condition: poor Discharged Condition: stable and improved Admission Circumstance: The patient is a 62 y.o. female, with past psychiatric hx of depression and anxiety, who presented to the ED on 10/01/2022 for suicidal ideation. In the ED, it was reported that patient spoke to her friend earlier in the day who recommended she be evaluated since she voiced suicidal thoughts and admitted to researching what medications would be lethal. Patient reportedly identified Tylenol and intended to act on it if her physical symptoms did not improve. Was reportedly feeling very anxious and jittery for the last few days and unable to sleep. Initially thought her pain pump for Dilaudid stopped working and was evaluated by both pain management and her primary care doctor. It was found to be functioning well. Due to the continued feeling of jitteriness, felt she could no longer bear it and started contemplating suicide. In the ED, tox screen was positive for oxycodone and opioids. Ethanol level was <0.010. Patient is currently on Celexa 40 mg, Lyrica 50 mg, trazodone 100 mg, Ativan 1 mg every 8 as needed, Atarax 100 mg at bedtime. Was recently prescribed more hydroxyzine and clonidine 0.1 mg 3 times daily. On encounter, patient stated I am not doing so good. States she has been withdrawing from unknown substance since last . She initially thought it was her pain pump but has been told it is working fine. When asked why she thinks she is withdrawing, states last time she felt such jitteriness and restlessness was when her pain pump dysfunction. Describes the feeling as getting antsy . Endorses inability to focus, sleep, and gets nauseous throughout the day. When she attempts to sleep, she lays in bed and then gets back out to move around. However, given her chronic pain and bad knee, finds it difficult. Reports she has not slept in 2 days and that is driving her mad . She disclosed to her friend how she has been feeling who then informed her . Is appreciative of the friend for helping her. Endorses low energy and contributes it to both mood and physical limitations. Her mood has been sad and feeling helpless. Currently continues to endorse suicidal ideation due to the physical symptoms but admits she does not want to but rather make the symptoms stop. Denies any HI/AVH. Denies any manic symptoms, paranoia, delusions at this time. Reports compliance with her medication as a nurse comes to her house and gives her medications. When asked if she has been taking medication such as Ativan regularly, patient assumes she is but is not sure. States she has been on Celexa for couple of years. Has tried Effexor a while ago but cannot recall how she responded or why it was changed. Denies of trazodone 100 mg helping her sleep at this time. Denies any recent medication changes besides adding of clonidine and hydroxyzine after her restlessness started few days ago. Is not connected with any psychiatrist or therapist. Examination: BP 116/66 Pulse 73 Temp 37.4 ?C (99.4 ?F) (Temporal) Resp 16 Ht 1.626 m (5' 4 ) SpO2 94% HOSPITAL COURSE: Pt was admitted to [place] [address] for safety and stabilization for suicidal ideations. She was treated with Celexa, trazodone, and ativan prn. Patient was attempted to be cross titrated from Celexa to Effexor, but developed symptoms of n/v and Effexor was discontinued after 1 dose. Throughout hospitalization, patient's mood improved, affect brightened. She was compliant with medications and maintained safety on the unit. She did not require restraints, seclusion, or prn sedation during their admission. She was social on the unit. Pt consistently denied suicidal or homicidal ideation. On the day of discharge, the pt denied suicidal or homicidal ideation, AVH, or delusional beliefs. She reports she was feeling well mentally and physically. She was future oriented. Spoke to patient's , Ed ([phone]), who reports that the patient has improved throughout her hospitalization. H (more content not included)... [facility] 10-05-2022 Note Individual Therapy P rogress Note [facility] spoke with pt who was sitting in common area. Offered to meet individually with pt but pt refused and reported feeling scattered offered a coloring sheet and puzzle but pt refused. Encouraged pt to attend group later. [facility] 10-05-2022 Note Hospitalist Progress Note 10/05/2022 [phone]: Please reach me on [employer] Secure Chat for patient care issues. [phone]: Please page [facility] night Hospitalist for any issues. Subjective: Admit Date: 10/01/2022 PCP: Erin Saunders Room#: [id number]/[id number] A Interval History: No overnight issues. Has been doing well with PO intake since yesterday. No further episodes of nausea/vomiting. Planning for DC home this afternoon. Verified pt's home meds - she does take Methotrexate/Leucovorin (ordered by PCP) Denies chest pain, sob, abdominal pain, diarrhea, constipation, fevers, or chills. Adult diet Regular; 3 carb choices (45 gm/meal) @[id number]@ 24HR INTAKE/OUTPUT: No intake or output data in the 24 hours ending 10/05/22 0807 Past Medical History: No past medical history on file. LABS: CBC: Recent Labs 10/03/22 1008 WBC 9.4 RBC 5.42* HGB 15.0 HCT 45.3 MCV 83.7 RDW 16.0* PLT 293 BMP: Recent Labs 10/03/22 1008 NA 138 K 4.5 CL 100 CO2 23 BUN 17 CREATININE 0.96 GLUCOSE 301* CALCIUM 9.6 ANIONGAP 15* LIVER PROFILE: Recent Labs 10/03/22 1008 AST 67* ALT 72* BILITOT 1.0 ALKPHOS 117 PROT 9.0* PT/INR: No results for input(s): PROTIME, INR in the last 72 hours. CARDIAC ENZYMES: No results for input(s): TROPONINI in the last 72 hours. Procalcitonin: No results found for: PROCAL COVID-19 PCR: No results for input(s): COVID19 in the last 72 hours. Objective: Vitals: BP 137/56 Pulse 75 Temp 37.1 ?C (98.7 ?F) (Temporal) Resp 18 Ht 5' 4 (1.626 m) SpO2 93% Pulse Ox: SpO2 Av.5 % Min: 93 % Max: 94 % Supplemental O2: General appearance: No apparent distress, appears stated age and cooperative with exam HEENT: Normal cephalic, atraumatic without obvious deformity. Pupils equal, round, and reactive to light. Extra ocular muscles intact. Conjunctivae/corneas clear. Neck: Supple, with full range of motion. No jugular venous distention. Trachea midline. No lymphadenopathy. Respiratory: Normal respiratory effort. Clear to auscultation, bilaterally without Rales/Wheezes/Rhonchi. Cardiovascular: Regular rate and rhythm with normal S1/S2 without murmurs, rubs or gallops. Abdomen: Soft, non-tender, non-distended with normal bowel sounds. No rebound or guarding. Musculoskeletal: No clubbing, cyanosis or edema bilaterally. Full range of motion without deformity. Skin: Skin color, texture, turgor normal. No rashes or lesions. Neurologic: Neurovascularly intact without any focal sensory/motor deficits. Cranial nerves: II-XII intact, grossly non-focal. Medications: atenolol, 25 mg, Oral, Daily cholecalciferol, 1,000 Units, Oral, Daily citalopram, 30 mg, Oral, Nightly cloNIDine, 0.1 mg, Oral, TID [Held by provider] furosemide, 40 mg, Oral, BID furosemide, 40 mg, Oral, BID influenza, 0.5 mL, IntraMUSCular, Once insulin glargine, 45 Units, SubCUTAneous, Nightly insulin lispro, 0-12 Units, SubCUTAneous, TID WC Insulin Lispro, 25 Units, SubCUTAneous, TID AC levothyroxine, 50 mcg, Oral, qAM AC lisinopril, 20 mg, Oral, Daily pregabalin, 50 mg, Oral, Daily traZODone, 100 mg, Oral, Nightly Assessment Non-intractable Nausea/Vomiting, improved: s/p IV fluids. Liver enzymes we mildly elevated. Tolerating PO solids/fluids currently. Headache-resolved. CT head- no acute findings, hemorrhage or mass effect 3. Hypertension- continue home meds. Blood pressures were elevated 2/-->improved today since she is tolerating antihypertensives 4. Diabetes mellitus type 2-continue home insulin and sliding scale insulin. 5. Hypothyroidism-continue p.o. levothyroxine 50mcg 6. SEDA- home CPAP 7. Chronic pain, opioid dependence - pain pump, allowed up to 3 Percocet PRN. Continue Lyrica 8. Major depressive disorder, recurrent, severe, without psychotic features- primary team 9. Generalized anxiety disorder-primary team Plan -am labs, replace lytes prn -increase activity -DVT prophylaxis: [] Lovenox [] Heparin [] SCDs [x] Encourage ambulation [] Already on Anticoagulation Advance Directive: Full Code Discharge planning: Plan for DC home today. Pt already has a follow-up appointment with her PCP Rizwana De La Torre APRN - [facility] Division of Hospitalist Medicine [facility] Comment: Please note this report has been produced using speech recognition software and may contain errors related to that system including errors in grammar, punctuation, and spelling, as well as words and phrases that may be inappropriate. If there is any questions or concerns please feel free to contact the dictating provider for clarification [facility] 10-04-2022 Note Hospitalist Progress Note 10/04/2022 Subjective: Admit Date: 10/01/2022 PCP: Erin Saunders Room#: [id number]/[id number] A Interval History: Found in day room watching television. Yesterday was evaluated for nausea, vomiting and denies any ill contacts. Feels much better today. Medication adjustments were made and she is improving. She is tolerating p.o. She has some leftover nausea that is mild and controlled with Zofran. She did not want to eat edwards today but was able to drink water and eat crackers without any difficulty. Denies chest pain, sob, abdominal pain, fevers, or chills. Was evaluated yesterday and labs were ordered. She also had a headache yesterday and CT of the head was ordered and patient reports that the headache is resolved. She feels much better after IV fluids and antiemetic medication in addition to the medication changes by her primary team. Adult diet Regular; 5 carb choices (75 gm/meal) LABS: CBC: Recent Labs 10/01/22211410/03/22 1008 WBC 8.1 9.4 RBC 4.82 5.42* HGB 13.4 15.0 HCT 41.3 45.3 MCV 85.6 83.7 RDW 15.8* 16.0* PLT 228 293 BMP: Recent Labs 10/01/22211410/03/22 1008 NA 138 138 K 4.1 4.5 CL 104 100 CO2 23 23 BUN 19* 17 CREATININE 0.99 0.96 GLUCOSE 165* 301* CALCIUM 8.7 9.6 ANIONGAP 11 15* LIVER PROFILE: Recent Labs 10/01/22211410/03/22 1008 AST 82* 67* ALT 73* 72* BILITOT 0.5 1.0 ALKPHOS 80 117 PROT 7.8 9.0* PT/INR: No results for input(s): PROTIME, INR in the last 72 hours. CARDIAC ENZYMES: No results for input(s): TROPONINI in the last 72 hours. Procalcitonin: No results found for: PROCAL COVID-19 PCR: No results for input(s): COVID19 in the last 72 hours. Objective: Vitals: BP (!) 168/73 Pulse 85 Temp 37 ?C (98.6 ?F) (Temporal) Resp 20 SpO2 94% Pulse Ox: SpO2 Av % Min: 94 % Max: 96 % Supplemental O2: General appearance: No apparent distress, appears stated age and cooperative with exam HEENT: Moist mucous membranes, sclera clear Respiratory: Normal respiratory effort. Clear to auscultation, bilaterally without Rales/Wheezes/Rhonchi. Cardiovascular: Regular rate and rhythm with no murmurs appreciated on ausculation. Abdomen: Normal bowel sounds. Soft, Non-tender with no rebound or guarding. Musculoskeletal: Extremities warm and well perfused. Calves are supple and non-tender Skin: Normal color, warm, dry Neurologic: Alert with no focal findings Medications: atenolol, 25 mg, Oral, Daily cholecalciferol, 1,000 Units, Oral, Daily citalopram, 30 mg, Oral, Nightly cloNIDine, 0.1 mg, Oral, TID [Held by provider] furosemide, 40 mg, Oral, BID influenza, 0.5 mL, IntraMUSCular, Once insulin glargine, 45 Units, SubCUTAneous, Nightly insulin lispro, 0-12 Units, SubCUTAneous, TID WC Insulin Lispro, 25 Units, SubCUTAneous, TID AC levothyroxine, 50 mcg, Oral, qAM AC lisinopril, 20 mg, Oral, Daily pregabalin, 50 mg, Oral, Daily traZODone, 100 mg, Oral, Nightly Assessment Nausea Vomiting, improved: Labs ordered yesterday reviewed within acceptable limits, urinalysis suggestive of mild dehydration yesterday and she did receive IV fluids. Liver enzymes elevated but less than they typically are. Glucose was elevated likely related to patient drinking regular luh abhay initially when she had the nausea and vomiting. She has switched to water. Given her dramatic improvement we will continue to monitor and no further labs today. Restart Lasix PO tomorrow. Headache-resolved. CT head yesterday reviewed and no acute findings, hemorrhage or mass effect 3. Hypertension- continue home meds once able to tolerate po. 168/73 today 4. Diabetes mellitus type 2-continue home insulin and sliding scale insulin. 5. Hypothyroidism-continue p.o. levothyroxine 50mcg 6. SEDA- home CPAP 7. Chronic pain- pain pump, allowed up to 3 Percocet PRN 8. Major depressive disorder, recurrent, severe, without psychotic features- primary team 9. Generalized anxiety disorder-primary team Plan -am labs, replace lytes prn -increase activity -DVT prophylaxis: [] Lovenox [] Heparin [] SCDs [x] Encourage ambulation [] Already on Anticoagulation Advance Directive: Full Code Discharge planning: BHARGAV Ku APRN - [facility] Division of Hospitalist Medicine Inpatient Medical Services/[facility] PAGER: Vijaya irvin [facility] 10-03-2022 Note Inpatient Psychiatri c Progress Note 10/03/22 Flex Savage was seen in follow up for depression, anxiety, which is chronic in nature. On exam, Flex was sitting on the edge of her bed with an emesis basin. She has been vomiting this morning. Per staff her blood pressure has been elevated, she actually went to get a CT of her head this morning due to headache blood pressure changes. Internal medicine has been following and managing her hypertension. Overall she reports that she does not feel well physically and is started about 3 AM last night. She has been compliant schedule medication. Continues to feel restless. Endorses ongoing depression and anxiety. Continues to have some ongoing suicidal ideation and desire not to be here. Denies auditory or visual hallucinations at this time. I discussed with her that I will be stopping the Effexor due to her blood pressure changes and just continuing with Celexa at the reduced dose for now until she stabilizes medically. She was agreeable with this plan. Medications: atenolol, 25 mg, Oral, Daily cholecalciferol, 1,000 Units, Oral, Daily citalopram, 20 mg, Oral, Nightly cloNIDine, 0.1 mg, Oral, TID [Held by provider] furosemide, 40 mg, Oral, BID influenza, 0.5 mL, IntraMUSCular, Once insulin glargine, 45 Units, SubCUTAneous, Nightly insulin lispro, 0-12 Units, SubCUTAneous, TID WC Insulin Lispro, 25 Units, SubCUTAneous, TID AC levothyroxine, 50 mcg, Oral, qAM AC lisinopril, 20 mg, Oral, Daily pregabalin, 50 mg, Oral, Daily traZODone, 100 mg, Oral, Nightly PRN medications: acetaminophen OR acetaminophen, dextrose, dextrose, glucagon (rDNA), glucose, hydrALAZINE, LORazepam, ondansetron ODT OR ondansetron, oxyCODONE-acetaminophen, polyethylene glycol (PEG) 3350, promethazine Mental Status Examination: Vitals : BP 134/89 Pulse 69 Temp 36.2 ?C (97.1 ?F) (Temporal) Resp 16 SpO2 92% APPEARANCE: Fairly groomed. BEHAVIOR: normal PSYCHOMOTOR: within normal limits SPEECH: Coherent and Regular rate, rhythm, volume and articulation LANGUAGE: Naming intact MOOD: Dysphoric AFFECT: Flat THOUGHT PROCESS: Goal-directed THOUGHT CONTENT: normal PERCEPTIONS/HALLUCINATIONS: denies ABSTRACTION: fair INSIGHT: fair, including concerning psychiatric condition. JUDGMENT: fair, including concerning psychiatric condition. ORIENTATION: Appropriate to age, Person, Place, and Time MEMORY: recent and remote memory intact ATTENTION SPAN: fair CONCENTRATION: fair FUND OF KNOWLEDGE: fair GAIT: Within normal limits ROS: [x] All negative/unchanged except if checked. Explain positive(checked items) below: [] Constitutional [] Eyes [] Ear/Nose/Mouth/Throat [] Respiratory [] CV [x] GI [] [] Musculoskeletal [] Skin/Breast [x] Neurological [] Endocrine [] Heme/Lymph [] Allergic/Immunologic Explanation: nausea/vomiting, mild headaches ASSESSMENT: Major depressive disorder, recurrent, severe without psychotic features Anxiety, unspecified SEDA Patient symptoms :show no change Patient continues to need, on a daily basis, active treatment furnished directly by or requiring the supervision of inpatient psychiatric personnel. Treatment Plan: -We will discontinue Effexor, she received a dose yesterday. Since she is having some significant nausea and elevated blood pressure we will discontinue for now. Plan was to cross titrate from Celexa to Effexor. Will increase Celexa back up to 30 mg tonight with plan for a slow wean to another agent as she tolerates. IMS following for medical management. Continue Current Medications if not otherwise stated. Will continue to titrate medications and assess for effectiveness and tolerability. Continue Follow-up. Continue crisis intervention oriented psychotherapy, group and milieu therapies. Social work and transitional care continue to assist with necessary family liaison and discharge planning. Pt expressed agreement and understanding with treatment plan. PSYCHOTHERAPY/COUNSELING: Supportive, therapeutic interview Inpatient MDM Complexity: 1.) Patient has at least one chronic illness with severe exacerbation, and requiring 2.) Prescription drug management and high risk of morbidity without ongoing treatment due to ongoing suicidal ideation, depression, not safe for discharge at this time MDM Level: high Note: Please note this report has been produced using speech recognition software and may contain errors related to that system including errors in grammar, punctuation, and spelling, as well as words and phrases that may be inappropriate. If there are any questions or concerns please feel free to contact the dictating provider for clarification. [facility] 10-03-2022 Note Hospitalist Progress Note 10/03/2022 10:15 AM Subjective: Admit Date: 10/01/2022 PCP: Erin Saunders Room#: S7-107/S7-107 A Interval History: Overnight patient began with vomiting episodes. She is still nauseated, took Zofran, helped a little. Not holding BP meds down, c/o MCKEON and dizzy. No abdominal pain, glucose 277. Long acting insulin held. No CP or SOB, feels like her heart is racing and is anxious. Adult diet Regular; 5 carb choices (75 gm/meal) @[id number]@ 24HR INTAKE/OUTPUT: No intake or output data in the 24 hours ending 10/03/22 1015 Past Medical History: SEDA HTN DM2 Chronic back pain Anxiety Depression hypothyroid Medications: atenolol, 25 mg, Oral, Daily cholecalciferol, 1,000 Units, Oral, Daily citalopram, 20 mg, Oral, Nightly cloNIDine, 0.1 mg, Oral, TID [Held by provider] furosemide, 40 mg, Oral, BID influenza, 0.5 mL, IntraMUSCular, Once insulin glargine, 45 Units, SubCUTAneous, Nightly insulin lispro, 0-12 Units, SubCUTAneous, TID WC Insulin Lispro, 25 Units, SubCUTAneous, TID AC levothyroxine, 50 mcg, Oral, qAM AC lisinopril, 20 mg, Oral, Daily pregabalin, 50 mg, Oral, Daily sodium chloride, 500 mL, IntraVENous, Once traZODone, 100 mg, Oral, Nightly venlafaxine XR, 37.5 mg, Oral, Daily with breakfast LABS: CBC: Recent Labs 10/01/22 2115 WBC 8.1 RBC 4.82 HGB 13.4 HCT 41.3 MCV 85.6 RDW 15.8* PLT 228 BMP: Recent Labs 10/01/222114 NA 138 K 4.1 CL 104 CO2 23 BUN 19* CREATININE 0.99 GLUCOSE 165* CALCIUM 8.7 ANIONGAP 11 LIVER PROFILE: Recent Labs 10/01/222114 AST 82* ALT 73* BILITOT 0.5 ALKPHOS 80 PROT 7.8 PT/INR: No results for input(s): PROTIME, INR in the last 72 hours. CARDIAC ENZYMES: No results for input(s): TROPONINI in the last 72 hours. Procalcitonin: No results found for: PROCAL COVID-19 PCR: No results for input(s): COVID19 in the last 72 hours. Objective: Vitals: BP (!) 192/86 Pulse 54 Temp 36.2 ?C (97.1 ?F) (Temporal) Resp 16 SpO2 92% Pulse Ox: SpO2 Av.5 % Min: 92 % Max: 95 % Supplemental O2: General appearance: tearful, anxious, cooperative HEENT: Normal cephalic, atraumatic without obvious deformity. Pupils equal, round, and reactive to light. Extra ocular muscles intact. Conjunctivae/corneas clear. Neck: Supple, with full range of motion. No jugular venous distention. Trachea midline. No lymphadenopathy. Respiratory: Normal respiratory effort. Clear to auscultation, bilaterally without Rales/Wheezes/Rhonchi. Cardiovascular: Regular rate and rhythm with normal S1/S2 without murmurs, rubs or gallops. Abdomen: Soft, non-tender, non-distended with normal bowel sounds. No rebound or guarding. Musculoskeletal: No clubbing, cyanosis or edema bilaterally. Full range of motion without deformity. Skin: Skin color, texture, turgor normal. No rashes or lesions. Neurologic: Neurovascularly intact without any focal sensory/motor deficits. Cranial nerves: II-XII intact, grossly non-focal. Assessment Vomiting: check CBC,CMP,Lipase, UA, IVF bolus 500cc, hold Lasix. Hold long acting insulin, use SSI only for now. 6.25 mg Phenergan IM PRN vomiting. Once able to take po will resume po meds. MCKEON: BP uncontrolled will get CT brain 3. Hypertension- continue home meds once able to tolerate po 4. Diabetes mellitus type 2-SSI only until eating 5. Hypothyroidism- Levothyroxine 50mcg 6. SEDA- home CPAP 7. Chronic pain- pain pump, allowed up to 3 Percocet PRN 8. Major depressive disorder, recurrent, severe, without psychotic features- primary team 9. Generalized anxiety disorder-primary team Plan - follow up on orders, monitor, nursing to page if any worsening sx or change in condition that would necessitate a medical transfer Total time spent on encounter 50 minutes, obtaining interval history from nurse and patient, assessing patient, reviewing previous labs, d/w charge nurse, closing encounter. -DVT prophylaxis: [] Lovenox [] Heparin [] SCDs [x] Encourage ambulation [] Already on Anticoagulation Advance Directive: Full Code Discharge planning: BHARGAV OATES PA-C Division of Hospitalist Medicine Re-assessed, patient doing better vomiting stopped, BP better since able to take meds, PRN Hydralazine IV ordered if not able to take po. Small fluid bolus given, antiemetics helping. Holding Lasix until feeling better, can restart possible tomorrow if not vomiting. Nursing to use SSI for now until eating regularly. Advised to transfer to medical bed (would need to contact field operations technician provider) if BP becomes uncontrolled, for any worsening or changing symptoms and to call field operations technician [facility] provider with any issues overnight. [facility] 10-02-2022 Note Attestation signed by Renata Givens MD at 10/03/2022 8:27 AM I saw and evaluated the patient, participating in the syed portions of the service. I reviewed the resident?s note. I agree with the resident?s findings and plan. Department of Psychiatry History and Physical Resident Note- Adult CHIEF COMPLAINT: I am not doing so good. I have been going through withdrawal since last History obtained from: chart review and patient reports Patient was seen after discussion with staff and reviewing the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 and mammogram. Thanks. Patient received letter for annual mammogram, please place order and have rn office call her. Patient prefers AM appts. 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 [facility] Diagnosis Pain Generalized pain documented in this encounter [facility] note* Diagnosis Diarrhea, unspecified type- Primary documented in this encounter [facility] Work Phone: Evaluation note* Diagnosis Diarrhea, unspecified type- Primary documented in this encounter [facility] Work Phone: Hospital course Narrative No data available for this section [facility] Hospital Discharge instructions No data available for this section [facility] Progress note No data available for this section [facility] Reason for referral (narrative)* Diagnostic Procedure Only (Routine) - Pending Review Specialty Diagnoses / Procedures Referred By Contac t Referred To Contact XR IMAGING Diagnoses Acquired valgus deformity of left ankle Procedures XR ANKLE GENERAL 3V AP/LAT/OBL LEFT RADEX ANKLE COMPLETE MINIMUM 3 VIEWS Nicolás [place] [address] [place] [address] Xr Imaging Referral ID Status Reason Start Date Expiration Date Visits Requested Visits Authorized [id number] Pending Review Auto-Generat ed Referral 09/28/2022 10/27/2023 1 1 [facility] for referral (narrative)* Diagnostic Procedure Only (Routine) - Closed Specialty Diagnoses / Procedures Referred By Contac t Referred To Contact XR IMAGING Diagnoses Pain Procedures XR FOOT GENERAL 3V AP/LAT/OBL LEFT RADEX FOOT COMPLETE MINIMUM 3 VIEWS Nicolás [place] [address] [place] [address] [place] [address] Referral ID Status Reason Start Date Expiration Date V isits Requested Visits Authorized [id number] Closed Auto-Generate d Referral 05/04/2022 06/03/2023 1 1 [facility] Summary Purpose Family History No Family History Records FoundNo Family History Records FoundNo Family History Records FoundNo Family History Records FoundNo Family History Records FoundNo Family History Records FoundNo Family History Records FoundNo Family History Records Found Advance Directives No Advanced Directives Records FoundNo Advanced Directives Records FoundNo Advanced Directives Records FoundNo Advanced Directives Records FoundNo Advanced Directives Records FoundNo Advanced Directives Records FoundNo Advanced Directives Records FoundNo Advanced Directives Records Found Reason for Referral Specialty Diagnoses / Procedures Referred By Contac t Referred To Contact Gastroenterology Diagnoses Diarrhea, unspecified type Procedures Colonoscopy Screening; Average Risk Patient UT COLONOSCOPY FLX DX W/COLLJ SPEC WHEN PFRMD UT COLON CA SCRN NOT HI RSK IND UT COLORECTAL SCRN; HI RISK IND UT COLONOSCOPY W/BIOPSY SINGLE/MULTIPLE UT COLSC FLX W/RMVL OF TUMOR POLYP LESION SNARE TQ UT COLSC FLX W/REMOVAL LESION BY HOT BX FORCEPS Bill Mijares, DO [address] [facility], [place] [address] Referral ID Status Reason Start Date Expiration Date V isits Requested Visits Authorized [id number] Authorized 07/26/2023 07/25/2024 1 1 Additional Source Comments INFORMATION SOURCE (unrecogn ized section and content) DATE CREATED AUTHOR AUTHOR'S ORGANIZ ATION 05/09/2019 [facility] DATE CREATED AUTHOR AUTHOR'S ORGANIZ ATION 02/13/2020 [facility] DATE CREATED AUTHOR AUTHOR'S ORGANIZ ATION 05/27/2021 [facility] DATE CREATED AUTHOR AUTHOR'S ORGANIZ ATION 06/26/2022 [facility] DATE CREATED AUTHOR AUTHOR'S ORGANIZ ATION 10/07/2022 [facility] DATE CREATED AUTHOR AUTHOR'S ORGANIZ ATION 03/07/2023 [facility] DATE CREATED AUTHOR AUTHOR'S ORGANIZ ATION 09/08/2023 [facility] Source Comments (unrecognize d section and content) In the event this informatio n is protected by the Federal Confidentiality of Alcohol and Drug Abuse Patient Records regulations: The Federal rules restrict any use of the information to criminally investigate or prosecute any alcohol or drug abuse patient.[facility] the event this information is protected by the Federal Confidentiality of Alcohol and Drug Abuse Patient Records regulations: The Federal rules restrict any use of the information to criminally investigate or prosecute any alcohol or drug abuse patient.[facility] the event this information is protected by the Federal Confidentiality of Alcohol and Drug Abuse Patient Records regulations: The Federal rules restrict any use of the information to criminally investigate or prosecute any alcohol or drug abuse patient.[facility] the event this information is protected by the Federal Confidentiality of Alcohol and Drug Abuse Patient Records regulations: The Federal rules restrict any use of the information to criminally investigate or prosecute any alcohol or drug abuse patient.[facility] the event this information is protected by the Federal Confidentiality of Alcohol and Drug Abuse Patient Records regulations: The Federal rules restrict any use of the information to criminally investigate or prosecute any alcohol or drug abuse patient.[facility] Reason for Visit (unrecogniz ed section and content) Reason Comments New Reason Onset Date Comments Question 06/23/2022 Reason Comments Radio Gen RMP Specialty Diagnoses / Procedures Referred By Contac t Referred To Contact XR IMAGING Diagnoses Pain Procedures XR FOOT GENERAL 3V AP/LAT/OBL LEFT RADEX FOOT COMPLETE MINIMUM 3 VIEWS Nicolás [place] [address] [place] [address] [place] [address] Referral ID Status Reason Start Date Expiration Date V isits Requested Visits Authorized [id number] Closed Auto-Generate d Referral 05/04/2022 06/03/2023 1 1 Specialty Diagnoses / Procedures Referred By Contac t Referred To Contact Diagnoses Diarrhea, unspecified Procedures UT COLONOSCOPY FLX DX W/COLLJ SPEC WHEN PFRMD UT COLONOSCOPY W/BIOPSY SINGLE/MULTIPLE UT COLSC FLX W/RMVL OF TUMOR POLYP LESION SNARE TQ UT COLSC FLX W/REMOVAL LESION BY HOT BX FORCEPS [id number] [address] [facility] [address] [place] [address] [phone] Referral ID Status Reason Start Date Expiration Date Visits Re quested Visits Authorized [id number] 1 1 <item><item> Privacy Markings (unrecogniz ed section and content) Section Author: [employer] PROHIBITION ON REDISCLOSURE OF CONFIDENTIAL INFORMATION This notice accompanies a disclosure of information concerning a client made to you with the consent of such client. Section Author: [employer] PROHIBITION ON REDISCLOSURE OF CONFIDENTIAL INFORMATION This notice accompanies a disclosure of information concerning a client made to you with the consent of such client. 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 This clinical summary was aggregated from multiple sources. Caution should be exercised in using it in the provision of clinical care. This summary normalizes information from multiple sources, and as a consequence, information in this document may materially change the coding, format and clinical context of patient data. In addition, data may be omitted in some cases. CLINICAL DECISIONS SHOULD BE BASED ON THE PRIMARY CLINICAL RECORDS. [employer] provides no warranty or guarantee of the accuracy or completeness of information in this document.
[2023-09-08] MEDS: Ondansetron 4 MG/2 ML Vial IV (23:19)
[2023-09-08 23:20] LABS: Absolute Lymphocyte Count 3.18 X10^3/uL (0.83-4.51); Basophil# 0.06 X10^3/uL; Basophil% 0.7 % (0-1); Eosinophil# 0.18 X10^3/uL; Eosinophils% 2.2 % (0-5); Hemoglobin 12.1 g/dL (12.0-15.0); Lymphocyte # 3.18 X10^3/ul (0.83-4.51); Lymphocyte % 39.7 % (19-41); Mean Corp Hgb Conc 31.8 g/dL (32-36); Mean Corpuscular Hgb 29.2 pg (27.0-32.0); Mean Corpuscular Volume 91.8 fL (81-99); Mean Platelet Vol. 9.2 fl (6.2-12.0); Monocyte% 6.2 % (0-10); NRBC Flagged by Analyzer 0 % (0-5); Neutrophil # 4.02 X10^3/uL (2.7-7.7); Neutrophil % 50.3 % (47-70); Platelet Count 219 K/mm3 (150-450); RBC Distribution Width CV 14.1 % (11.6-14.6); RBC Distribution Width SD 46.7 fl (35.1-43.9); Red Blood Count 4.14 M/mm3 (4.2-5.4)
[2023-09-08] MEDS: 0.9% Normal Saline (1000mL) 1,000 ML 1000 ML IV (23:20)
[2023-09-08] MEDS: Ketorolac 15 MG/ML Vial IV (23:23)
[2023-09-08 23:51] LABS: ALB/GLOB Ratio 0.7 RATIO (0.9-2.4); AST(SGOT) 32 U/L (15-37); Alanine Aminotransfer ALT/SGPT 45 U/L (13-56); Albumin, Serum 2.8 g/dL (3.2-5.0); Alkaline Phosphatase 104 U/L (45-117); Anion Gap 4 (5-15); BUN 20 mg/dL (7-18); BUN/Creat Ratio 21.3 RATIO (10-20); Calcium,Total 8.8 mg/dL (8.5-10.1); Chloride 106 mmol/L (98-107); Creatinine, Serum 0.94 mg/dL (0.55-1.02); EST Glomerular Filtration Rate 64 mL/min (>60); Est Glom Filt Rate - Afr Amer 77 mL/min (>60); Estimated Creatinine Clearance 71.08 ml/min; Globulin 3.9 g/dL (2.2-4.2); Glucose 222 mg/dL (74-106); Lipase 32 U/L (13-75); Potassium 4.5 mmol/L (3.5-5.1); Protein, Total 6.7 g/dL (6.4-8.2); Sodium Level 141 mmol/L (136-145)
[2023-09-09 00:20] LABS: Bacteria 0 SEEN /hpf (None Seen); Mucous, Urine 0 SEEN /hpf (<or=2+); Red Blood Cells-Urine 0 SEEN /hpf (0-5); Squamous Epithelial Cells - UA 0 SEEN /hpf (5-10); White Blood Cells 0 SEEN /hpf (0-5)
[2023-09-09 00:23] LABS: Color, Urine Yellow (Yellow); Glucose, Dipstick Normal (Normal); Ketone-Dipstick Negative (Negative); Leukocyte Esterase-Dipstick 25 /ul (Negative); Nitrite-Dipstick Negative (Negative); Occult Blood-Urine Negative /ul (Negative); Protein-Dipstick Negative (Negative); Urine Bilirubin Dipstick Negative (Negative); Urine Clarity Clear (Clear); Urine Urobilinogen Normal (Normal)
[2023-09-09] MEDS: HYDROmorphone 0.5 MG/0.5 ML SYRINGE IV (01:40)
[2023-09-09 01:49] VITALS: PULSE 57; RESP 18; O2SAT 92
--- NOTE | 2023-09-09 23:11 | CT_ITS ---
EXAM: CT ABDOMEN AND PELVIS WITH INTRAVENOUS CONTRAST CLINICAL INDICATION: Left side abdominal pain, recent colonoscopy TECHNIQUE: Helically acquired images were obtained of the abdomen and pelvis with intravenous contrast. This CT exam was performed using one or more of the following dose reduction techniques: automated exposure control, adjustment of the mA and/or kV according to patient size, and/or use of iterative reconstruction technique. CONTRAST: IV 100mL Isovue-370 RADIATION DOSE: Total DLP: 2329.16 mGy-cm. COMPARISON: CTA chest of 09/16/2022. Nonenhanced abdomen/pelvis CT of 07/09/2019. Enhanced abdomen and pelvis CT of 05/16/2019. FINDINGS: LOWER THORAX: Visualized lung bases are clear. Minimal coronary artery calcification is present. No significant pericardial effusion. ABDOMEN: LIVER: Elongated right hepatic lobe measuring 23 cm in cephalocaudal dimension. Portal veins enhance normally. No focal intrahepatic abnormality. GALLBLADDER AND BILE DUCTS: Gallbladder is contracted. No calcified gallstones or pericholecystic stranding identified. The CBD is mildly prominent with the distal 9 mm in diameter as compared 8 mm on the prior, not significantly changed No calcified common duct stones are identified. PANCREAS: Unremarkable. No focal cystic or solid mass. SPLEEN: Unremarkable. Normal size without focal cystic or solid mass. ADRENALS: Unremarkable. No nodules. KIDNEYS AND URETERS: Kidneys are normal in size and shape, with symmetric nephrograms. 6 mm simple cyst incidentally noted within the right renal lower pole cortex, and requires no follow-up. Within the mid pole cortex of the left kidney is a 1.6 cm rounded circumscribed hypoattenuating lesion which measured 0.9 cm on the prior enhanced CT of 05/17; this lesion is of water attenuation and may contain an internal septation. No hydronephrosis or obstructing ureteral stone. No perirenal stranding. STOMACH AND BOWEL: Stomach is decompressed. No periduodenal inflammatory changes or distended small bowel loops. No findings of small bowel obstruction, diverticulitis or colitis. Moderate amount of formed stool noted within the colon. PELVIS: APPENDIX: Absent appendix. BLADDER: Empty. REPRODUCTIVE: Absent uterus. No adnexal mass. ABDOMEN and PELVIS: INTRAPERITONEAL SPACE: Unremarkable. No ascites or other fluid collection. No free air. BONES/JOINTS: Previous lower lumbar laminectomy with fusion of the L4/5 and L5/S1 disc spaces. Pedicle screws and rods in place from L3 to L5. Solitary screw transfixes the right SI joint. Thecal sac remains flattened/effaced at the L2/3 level due to slight anterolisthesis of L2 on L3, facet hypertrophy and ligamentum flavum calcification, with AP diameter of the spinal canal measuring just under 8 mm in AP diameter at this level. No suspicious lytic or blastic abnormality. SOFT TISSUES: Unremarkable. No discrete abdominal or pelvic wall hernia. VASCULATURE: Minimally calcific abdominal aorta and its branches. No AAA. LYMPH NODES: Unremarkable. No enlarged lymph nodes. TUBES, LINES AND DEVICES: Spinal infusion catheter remains in place extending to the T10 level. CT/Abdomen/Pelvis W IV Cont ONLY IMPRESSION: Interval enlargement of a cystic lesion within the left renal midpole cortex; nonemergent renal ultrasound suggested for further evaluation as this cystic lesion may contain an internal septation. Hepatomegaly again noted. No acute intra-abdominal abnormality; no findings of obstructive uropathy, small bowel obstruction or diverticulitis. Electronically Signed: Terrance Wagoner MD at 2:19 EST ,
== END 2023-09-09 02:44 | disposition home or self-care (01) ==
PROVIDERS: Emergency Provider Emergency Medicine; PCP Family Medicine; Visit Provider Emergency Medicine
DX: R10.9 Unspecified abdominal pain (principal); E11.40 Type 2 diabetes mellitus with diabetic neuropathy, unspecified; Z79.4 Long term (current) use of insulin; G89.29 Other chronic pain; N28.1 Cyst of kidney, acquired; E03.9 Hypothyroidism, unspecified; I10 Essential (primary) hypertension; E78.00 Pure hypercholesterolemia, unspecified; F41.9 Anxiety disorder, unspecified; Z79.890 Hormone replacement therapy; Z79.899 Other long term (current) drug therapy; Z87.891 Personal history of nicotine dependence
CPT/HCPCS: 74177; 80053; 81001; 83690; 85025; 96361; 96374; 96375; 99283; J7030; Q9967; A4216; J2405

== ENCOUNTER → 2023-10-19 | Outpatient (CLI) | payer MEDICARE, OTHER, SELFPAY ==
--- NOTE | 2023-10-19 13:59 | US_ITS ---
STUDY: RENAL ULTRASOUND - COMPLETE REASON FOR EXAM: Female, 63 years old. CHANGE IN CYST ON CT SEPTATION ENLARGEMENT TECHNIQUE: Ultrasound evaluation of the kidneys was performed with real-time and static medina-scale imaging. COMPARISON: Comparison is made with prior CT scan again and pelvis dated September 09, 2023. FINDINGS: RIGHT KIDNEY: Normal location of the right kidney, which is normal in size. The right kidney measures 11 cm x 5 cm x 5.2 cm. There is a normal cortex of the right kidney. The renal cortex measures 1.5 cm. 2 renal cysts are seen. The larger measures 1.6 cm x 1.9 cm x 1.3 cm. There are no right renal calculi. There is no right hydronephrosis. DISTAL RIGHT URETER: There is non-visualization of the distal right ureter. There is no demonstrated right ureterovesical junction calculus. There is a visualized right ureteral jet. LEFT KIDNEY: Normal location of the left kidney, which is normal in size. The left kidney measures 13 cm x 4.9 cm x 5.3 cm. There is a normal cortex of the left kidney. The renal cortex measures 2.0 cm. There is a 2.6 cm x 2.1 cm x 1.9 cm left renal cyst. There are no left renal calculi. There is no left hydronephrosis. DISTAL LEFT URETER: There is non-visualization of the distal left ureter. There is no demonstrated left ureterovesical junction calculus. There is a visualized left ureteral jet. BLADDER: The distended urinary bladder has a volume of 373 ml. There is a normal wall thickness of the distended urinary bladder. There is no demonstrated mass within the urinary bladder. There are no demonstrated bladder calculi. US/Kidney and Bladder IMPRESSION: Bilateral renal cysts. Electronically Signed: Stan Corral MD at 15:30 EST ,
== END | disposition home or self-care (01) ==
LOC: US 13:47
PROVIDERS: PCP Family Medicine; Referring Provider Family Medicine; Visit Provider Family Medicine
DX: N28.1 Cyst of kidney, acquired (principal)
CPT/HCPCS: 76770

== ENCOUNTER → 2024-01-02 | Outpatient (CLI) | payer MEDICARE, OTHER, SELFPAY | END | disposition home or self-care (01) | PROVIDERS: PCP Family Medicine; Visit Provider Podiatrist | DX: L03.116 Cellulitis of left lower limb (principal) | CPT/HCPCS: 87070; 87075; 87077; 87186; 87205 ==

== ENCOUNTER → 2024-01-25 | Outpatient (CLI) | payer MEDICARE, OTHER, SELFPAY ==
[2024-01-25 12:44] LABS: Absolute Lymphocyte Count 1.69 X10^3/uL (0.83-4.51); Absolute Neutrophil Count 3.1 X10^3/uL (2.0-7.7); Basophil# 0.05 X10^3/uL; Basophil% 0.9 % (0-1); Eosinophils% 3.6 % (0-5); Hematocrit 40.7 % (37-47); Lymphocyte # 1.69 X10^3/ul (0.83-4.51); Lymphocyte % 30.7 % (19-41); Mean Corp Hgb Conc 31.9 g/dL (32-36); Mean Corpuscular Hgb 29.4 pg (27.0-32.0); Mean Corpuscular Volume 92.1 fL (81-99); Mean Platelet Vol. 9.8 fl (6.2-12.0); Monocyte# 0.41 X10^3/uL; Monocyte% 7.5 % (0-10); NRBC Flagged by Analyzer 0 % (0-5); Neutrophil # 3.12 X10^3/uL (2.7-7.7); Neutrophil % 56.8 % (47-70); Platelet Count 217 K/mm3 (150-450); RBC Distribution Width SD 43.3 fl (35.1-43.9); Red Blood Count 4.42 M/mm3 (4.2-5.4); White Blood Count 5.5 K/mm3 (4.4-11.0)
[2024-01-25 13:31] LABS: ALB/GLOB Ratio 0.8 RATIO (0.9-2.4); AST(SGOT) 62 U/L (15-37); Alanine Aminotransfer ALT/SGPT 81 U/L (13-56); Albumin, Serum 3.2 g/dL (3.2-5.0); Alkaline Phosphatase 97 U/L (45-117); Anion Gap 8 (5-15); BUN 14 mg/dL (7-18); BUN/Creat Ratio 17.5 RATIO (10-20); Calcium,Total 9.3 mg/dL (8.5-10.1); Chloride 105 mmol/L (98-107); EST Glomerular Filtration Rate 76 mL/min (>60); Est Glom Filt Rate - Afr Amer 92 mL/min (>60); Globulin 3.8 g/dL (2.2-4.2); Glucose 245 mg/dL (74-106); Potassium 4.1 mmol/L (3.5-5.1); Sodium Level 140 mmol/L (136-145)
[2024-01-25 14:52] LABS: Hemoglobin A1c 8.8 % (3.8-5.6)
[2024-01-25 15:35] LABS: Vitamin D,25 Hydroxy 38.6 ng/mL
== END | disposition home or self-care (01) ==
LOC: BFHLAB 11:00
PROVIDERS: PCP Family Medicine; Referring Provider Family Medicine; Visit Provider Family Medicine
DX: E11.65 Type 2 diabetes mellitus with hyperglycemia (principal); E11.40 Type 2 diabetes mellitus with diabetic neuropathy, unspecified; E55.9 Vitamin D deficiency, unspecified
CPT/HCPCS: 36415; 80053; 82306; 83036; 85025

== ENCOUNTER 2024-02-17 09:25 | Inpatient (IN) | payer MEDICARE, OTHER, SELFPAY ==
[2024-02-17] VITALS (17 sets, daily range): BP systolic 102–154; BP diastolic 57–78; PULSE 57–71; RESP 14–16; TEMP 36.1–36.7; O2SAT 88–98; BMI 44.2
--- NOTE | 2024-02-17 | BON_PTH ---
PATIENT: FLEX WOOTEN LOC: MS3 U#:[id number] AGE/SX: 63/F ROOM: [facility] RE02/17/[address]: Dr. Rafi Berry DPM : 1960 BED: 1 DIS: 02/20/2024 SPEC #: [id number] RECD: 02/17/24 12:14 STATUS: SARAH STEPHANIE #: [id number] NEENA: 02/17/24 00:[address]: Rafi Berry DEPT: SURGICAL PATHOLOGY RECD BY: Maikel Dorman ENTERED: 02/17/24 12:14 SP TYPE: Bone OTHR DR: Dr. Rica Padgett DO Tissues: Bone of foot, NOS Procedures: Decalcification bone/plaque Surgery Specimen Level III HEADER OPERATION: Lamar arthroplasty first left toe with placement of pin/wire PRE-OP DIAGNOSIS: Recurrent ulcer left 1st toe, limited 1st toe range of motion TISSUE SUBMITTED: Bone 1st toe, left MICROSCOPIC DIAGNOSIS Left foot 1st toe bone, excision: Fragments of bone and dense fibroconnective tissue with reactive changes. / 02/22/2024 MICROSCOPIC DESCRIPTION Slides are reviewed. GROSS DESCRIPTION Received in fixative is one container labeled with the patient's name and designated Bone of 1st left toe. The specimen consists of multiple irregular and discoid fragments of light hoang-red bone measuring in aggregate 5.0 x 4.0 x 1.0cm. Territory Manager sections are submitted in one cassette after decalcification. / 02/17/2024 TC:5 CPT:05399,17693
[2024-02-17] MEDS: Lactated Ringers 1,000 ML 15 ML IV ×2 (06:41→10:52)
--- NOTE | 2024-02-17 06:46 | PCM.PRE.AN2 ---
ASA Classification* ASA Classification ASA Classification: 2 Assessment & Plan Anesthesia* Anesthesia Assessment Anesthesia Assessment: Discussed sedation and/or anesthesia options, risks, benefits, and alternatives with patient/parents/legal guardian/POA. Questions invited. The patient/parents/legal guardian/POA seems to understand and agrees to proceed with anesthesia plan. Reviewed the physical assessment, medical history, allergy history and patient home medications list prior to surgery/procedure/anesthetic and documented any changes. Performed airway and anesthesia risk assessments. Anesthesia Type Anesthesia Type: MAC Pre-Assessment Diagnosis/Proposed Procedure Planned Operative Procedure(s): (L) Lamar arthroplasty first left toe with placement of pin/wire Anesthesia History Anesthesia History - resident programs assistant: Anesthesia History - resident programs assistant Hx Hospitalization Yes: [facility] REPLACEMENT 02/10/24 14:19 Any Problems With Anesthesia No 02/10/24 14:19 Cholinesterase deficiency No 02/10/24 14:19 You/Your Family Experience No 02/10/24 14:19 fever (hyperthermia) with Relationship Recent Exposure to Contagious No 02/17/24 06:38 Disease Does patient have nerve No 02/10/24 14:19 stimulator Patient instructed to have device shut off --Does patient have Pacemaker No 02/17/24 06:38 or ICD? When Was Last Pacemaker Check QUESTION #4 FULL TEXT: You/Your Family Experience fever (hyperthermia) with Anesthesia Last Oral Intake Last Oral intake: Last Oral Intake NPO since Meds taken in AM with sips of water? Meds patient instructed to take am of surgery PONV PONV - resident programs assistant: PONV - resident programs assistant Female Yes 02/10/24 14:19 HX of Motion Sickness No 02/10/24 14:19 HX of N/V After Surgery No 02/10/24 14:19 Non-Smoker Yes 02/10/24 14:19 Duration of Surgery greater Yes 02/10/24 14:19 than 60 minutes Number of Risk Factors 3 02/10/24 14:19 PONV Score Moderate Risk 02/10/24 14:19 Height & Weight Height & Weight: Anesthesia: Height & Weight Height 5 ft 4 in 02/17/24 06:38 Weight: 116.9 kg 02/17/24 06:38 Body Mass Index (BMI) 44.2 02/17/24 06:38 Respiratory Assessment Respiratory Assessment - resident programs assistant: Respiratory Tract Infection Hx - resident programs assistant Hx Respiratory Tract Infection No 02/10/24 14:19 STOP Sleep Apnea STOP Sleep Apnea - resident programs assistant: STOP Sleep Apnea - resident programs assistant Hx Hypertension Yes: CONTROLLED WITH MED 02/10/24 14:19 Hx Sleep Apnea Yes: ASV 02/10/24 14:19 CPAP Yes 02/10/24 14:19 BIPAP No 02/10/24 14:19 Do you snore loudly (louder than talking or can be heard Do you often feel tired/ fatigued/ sleepy during daytime? Has anyone observed you stop breathing during sleep? STOP Results Positive 02/10/24 14:19 QUESTION #5 FULL TEXT : Do you snore loudly (louder than talking or can be heard through closed doors)? 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 Specify any problems Hx of Preganancy in last 3 No 02/10/24 14:19 Months Nurse Filling Out Transfusion [facility] 02/10/24 14:19 & Questions: Date: 02/10/24 02/10/24 14:19 Time: 14:35 02/10/24 14:19 Patient unable to answer at this time (ie. confused, unrespo /Reproduction History /Reproductive History - resident programs assistant: /Reproductive Hx- resident programs assistant Hx Now No 02/10/24 14:19 Gestational Age (in weeks): EDC: Hx Hx Para Hx Section SAB No 02/10/24 14:19 Active Medications Active Medications: Current Medications Generic Name Dose Route Start Last Admin Trade Name Freq PRN Reason Stop Dose Admin Cefazolin Sodium 2 gm/ Sodium 110 mls @ 150 mls/hr 02/17/24 07:30 Chloride IV 02/17/24 08:13 PREOP ONE Lactated Ringer's 1,000 mls @ 15 mls/hr 02/17/24 06:30 02/17/24 06:41 IV 15 mls/hr .Q48H EDMOND Administration Anesthesia Focused Assessment* Temperature: 97.3 F Pulse Rate: 57 Blood Pressure: 142/77 Respiratory Rate: 16 Pulse Ox: 94 Airway Assessment Mouth opens: >3 cm Mallampati Score: II Focused Labs Anesthesia Preop lab: CBC WBC 5.5 K/mm3 (4.4-11.0) 01/25/24 11:02 RBC 4.42 M/mm3 (4.2-5.4) 01/25/24 11:02 Hgb 13.0 g/dL (12.0-15.0) 01/25/24 11:02 Hct 40.7 % (37-47) 01/25/24 11:02 Plt Count 217 K/mm3 (150-450) 01/25/24 11:02 CHEMISTRY Potassium 4.1 mmol/L (3.5-5.1) 01/25/24 11:02 Sodium 140 mmol/L (136-145) 01/25/24 11:02 Magnesium 1.7 mg/dL (1.6-2.6) 11/10/21 11:49 BUN 14 mg/dL (7-18) 01/25/24 11:02 Creatinine 0.80 mg/dL (0.55-1.02) 01/25/24 11:02 Glucose 245 mg/dL (74-106) H 01/25/24 11:02 POC Glucose 129 mg/dL (74-106) H 09/17/22 11:47 TSH 2.47 uIU/mL (0.358-3.74) 02/28/23 05:35 COAG PT 12.1 SECONDS (11.7-14.9) 08/01/15 13:15 Review of Systems (Anesthesia) ROS Narrative System reviewed and no additional complaints, except as documented. [facility] [place] Medical History MRSA infection Uses wheelchair Walker as ambulation aid High cholesterol CPAP (continuous positive airway pressure) dependence Sleep apnea Anxiety disorder, unspecified Chronic pain Depressive 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 Obesity hypoventilation syndrome Obesity Normal stress echocardiogram Wears glasses PTSD (post-traumatic stress disorder) Depression Anxiety Thyroid disease Insulin dependent diabetes mellitus Ambulates with cane Fibromyalgia Arthritis DVT (deep venous thrombosis) High cholesterol Migraine headache Back pain Gait instability Syncope Dietary restriction History of diverticulitis Gastric reflux Former smoker ASV (adaptive servo-ventilation) use counseling On home oxygen therapy Shortness of breath on exertion Leg cramps History of pain when walking History of edema History of stress test Hypertension Implantable intrathecal infusion pump present Mixed connective tissue disease Osteoarthritis History of DVT (deep vein thrombosis) History of pulmonary embolus (PE) Atrophic vaginitis Bone spur Osteoarthritis calcium calcifications Mixed connective tissue disease History of neuropathy History of spinal stenosis History of diabetes mellitus Acromioclavicular arthrosis Strain of shoulder, left Neck pain Limb weakness Difficulty balancing Fatigue Diabetes Shoulder pain Gastroesophageal reflux disease DJD (degenerative joint disease) of lumbar spine Home Medications ?Medication ?Instructions ?Recorded ?Last Taken ?Type omeprazole 40 mg capsule,delayed 40 mg PO DAILY GERD 08/30/13 09/15/22 History release trazodone 100 mg tablet 100 mg PO QHS mood 08/30/13 09/15/22 History levothyroxine 50 mcg tablet 50 mcg PO DAILY thyroid 10/21/17 09/15/22 History simvastatin 20 mg tablet 20 mg PO DAILY cholesterol 10/21/17 09/15/22 History atenolol 25 mg tablet 25 mg PO DAILY heart 05/18/19 02/17/24 06:34 History methotrexate sodium 2.5 mg tablet 20 mg PO FR fibromyalgia 08/19/20 09/10/22 History leucovorin calcium 10 mg tablet 5 mg PO FR supplement 12/08/20 09/10/22 History insulin glargine 100 unit/mL (3 45 unit subcut QPM dm 09/22/21 09/15/22 History mL) subcutaneous pen (Lantus Solostar U-100 Insulin) cholecalciferol (vitamin D3) 25 25 mcg PO DAILY supplement 09/13/22 09/15/22 History mcg (1,000 unit) capsule insulin lispro 100 unit/mL See Rx Instructions subcut TID 09/13/22 09/16/22 History subcutaneous pen lactobacillus combination no.9 4 4,000 mmu cells PO DAILY supplement 09/13/22 09/15/22 History billion cell capsule (Adult 50 Plus Probiotic) oxycodone-acetaminophen 5 mg-325 1 tab PO Q8H PRN Pain 09/16/22 09/15/22 History mg tablet (Percocet) lisinopril 20 mg tablet 20 mg PO DAILY #30 tabs 09/17/22 Unknown Rx clonidine HCl 0.1 mg tablet 0.1 mg PO Q8H 12/02/22 Unknown History escitalopram oxalate 20 mg tablet 20 mg PO DAILY #90 tabs 09/07/23 Unknown Rx gabapentin 100 mg capsule 100 mg PO TID 90 days #270 caps 09/07/23 Unknown Rx hydroxyzine pamoate 50 mg capsule 50 mg PO QHS mood #30 caps 09/07/23 Unknown Rx flash glucose sensor (FreeStyle #6 ea 11/28/23 Unknown Rx Prema 2 Sensor kit) lorazepam 1 mg tablet 1 mg PO BID mood #60 tabs 01/02/24 Unknown Rx semaglutide 3 mg tablet (Rybelsus) 3 mg PO DAILY 02/10/24 02/10/24 History Allergy/AdvReac Type Severity Reaction Status Date / Time niacin Allergy Itching Verified 02/17/24 06:27 venlafaxine AdvReac Severe Vomiting Verified 02/17/24 06:27 metformin AdvReac Intermediate Diarrhea Verified 02/17/24 06:27 cephalexin (From Keflex) AdvReac Other Verified 02/17/24 06:27 Family History Sister Breast cancer Diabetes Kidney disease Other Arthritis Heart disease Surgical History History of bunionectomy of both great toes History of lumbar fusion History of total right knee replacement Hx of surgical procedure Hx of arthroscopic knee surgery History of carpal tunnel release Hx of hysterectomy History of back surgery Hx of total knee replacement hx of plantar fasciotomy Social History Smoking Status: Former smoker alcohol intake: never substance use type: does not use caffeine: No what type of physical activity do you participate in: none seatbelt use: always do you feel safe at home: Yes additional social history: [id number] at [employer] Patient is disabled
--- NOTE | 2024-02-17 07:22 | RAD_ITS ---
PROCEDURE: Intraoperative fluoroscopic services for a Lamar arthroplasty of the left first toe. DATE OF EXAMINATION: February 17, 2024. INDICATION: Female, 63 years old. Foot pain. FLUOROSCOPY TIME (if supplied): (25 seconds) minutes/seconds. 0.14 mGy RAD/Toe(s) Min 2 Views IMPRESSION: Intraoperative fluoroscopic services provided for Lamar arthroplasty of the first Electronically Signed: Stan Corral MD at 14:13 EDT ,
[2024-02-17] MEDS: Cefazolin 2 GM in 0.9% Normal Saline (100mL Bag) 100 ML IV (07:28)
[2024-02-17] MEDS: Bupivacaine Mpf 0.5% 30 ML VIAL (07:45)
[2024-02-17] MEDS: Lidocaine 1% (20 ml mdv) 20 ML Vial (07:45)
--- NOTE | 2024-02-17 09:30 | PCM.OPRPT ---
Report of Operation Date of Procedure: 02/17/24 Pre-Operative Diagnosis: Recurrent 1st toe ulcer and hallux limitus/rigidus left Post-Operative Diagnosis: Same Surgery/Procedure Performed:: 1st toe arthroplasty (Lamar), left Surgeon: Rafi Berry biomedical field service engineer: Alessia Type of Anesthesia: General and Local Specimen's removed: Bone from left 1st toe sent to pathology Description of Procedure: Indications: This is a 63 year old female with chronic on and off left foot ulceration to the 1st toe. Due to this we discussed further options as she has tried extensive nonsurgical care but ulcer continues to recur. We discussed Lamar arthropathy. Reviewed the procedures, possible benefits vs risks, goals, expectations, and estimated healing time. She expressed understanding and agreement. No guarantees were given nor implied. No warranties were given.? She was advised the risks include but not limited to pain, recurrence, need for further surgery, blood clots, numbness, swelling, infection, scar tissue, weakness, deformity, loss of limb, and loss of life. She expressed understanding and agreement, and was able to repeat back. Patient freely signed the consent forms and elected to proceed forward with the procedure. No guarantees were given nor implied. No warranties were given. Operative procedure: She was brought back into the operating room and was placed on the operating room table in the supine position. A timeout was performed and the patient was properly identified and the surgical plan was confirmed. The patient did receive 2 g of IV Ancef for antibiotic prophylaxis. The patient received anesthesia per the anesthesia team. A well padded pneumatic tourniquet was applied around the left ankle. A total of 10mL of 0.5% Bupivacaine plain was given as a local nerve block around the left 1st ray on the foot after the overlying skin was cleansed with 70% Isopropyl alcohol. The left foot was scrubbed, prepped and draped in the usual aseptic fashion. Further attention was directed to the left foot. There was noted to be limited ROM of the 1st metatarsal phalangeal joint. There was noted to be significant callus and dry ulcer to the plantar medial 1st toe at IPJ. The left foot was exsanguinated using elevation and the left ankle pneumatic tourniquet was inflated to 250mmHg. Left 1st metatarsal phalangeal joint hallux valgus Lamar arthroplasty: A linear longitudinal skin incision was made overlying the dorsal medial aspect of the 1st metatarsal phalangeal joint, located medial to the extensor hallucis longus tendon. The incision was carefully deepened to the dorsal 1st metatarsal phalangeal joint capsule, which was incised and partially reflected exposing the 1st metatarsal head as well as the base of the hallux proximal phalanx. It was noted the extensor hallucis longus tendon had a tear at the level of the 1st MTPJ. The 1st MTPJ was visualized and there was some diffuse degenerative changes present. The base of the hallux proximal phalanx was excised but the distal insertion point of? the flexor digitorum brevis was left intact.? The resected bone was sent to pathology for further evaluation. After this was completed the toe was now in good alignment. The site was stabilized with a Belinda pin through the 1st toe into the 1st metatarsal with the 1st toe in rectus position and out to normal length. The site was flushed out with copious amounts of normal saline solution. The extensor hallucis longus tendon was repaired using 2-0 Fiberwire and 3-0 Prolene to the proper tension. The capsule was reapproximated using 3-0 Vicryl, the subcutaneous tissue was reapproximated using 3-0 Vicryl, and the skin was reapproximated using 3-0 Monocryl. The pneumatic tourniquet was deflated at 89 minutes, and there was immediate return of warmth and perfusion to the foot and to all toes on the foot with normal temperature gradient and CFT < 2 seconds to all toes. Hemostasis was achieved with no significant bleeding noted.? Also of note all vital structures including all vital neurovascular and soft tissue structures were properly identified, retracted, and protected as necessary during the procedures. Also of noted intra operative fluoroscopy was used as needed to confirm the above procedures. At the end, a dressing was applied which consisted of Betadine soaked adaptic, 4x4 gauze, Kerlix, and dedrick bandage was applied being sure to apply it not too tight. ? The patient tolerated the above operative procedure well at the anesthesia well with no complication. The patient was transported to the recovery room with vital signs stable and in good condition. Post operative orders were placed. Post operative instructions were reviewed. The patient will be admitted for observation and nursing facility placement. Grafts/Implants Used: Steinmann pin x 1, fiberwire and prolene Complications None
--- NOTE | 2024-02-17 09:32 | HP.PCM_ITS ---
HPI - General General Date of Admission: 02/17/24 Chief Complaint: Left foot post op, pain, ulcer HPI Narrative FLEX WOOTEN, is a 63 F who presents s/p left 1st toe arthroplasty (Lamar) done today due to recurrent ulceration, she will need to remain nonweightbearing. She will need assistance, and also admitted for pain management and observation. She has diabetes with peripheral neuropathy. She has other medical problems. She is in recovery doing well at this time. [facility] Medical History MRSA infection Uses wheelchair Walker as ambulation aid High cholesterol CPAP (continuous positive airway pressure) dependence Sleep apnea Anxiety disorder, unspecified Chronic pain Depressive 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 Obesity hypoventilation syndrome Obesity Normal stress echocardiogram Wears glasses PTSD (post-traumatic stress disorder) Depression Anxiety Thyroid disease Insulin dependent diabetes mellitus Ambulates with cane Fibromyalgia Arthritis DVT (deep venous thrombosis) High cholesterol Migraine headache Back pain Gait instability Syncope Dietary restriction History of diverticulitis Gastric reflux Former smoker ASV (adaptive servo-ventilation) use counseling On home oxygen therapy Shortness of breath on exertion Leg cramps History of pain when walking History of edema History of stress test Hypertension Implantable intrathecal infusion pump present Mixed connective tissue disease Osteoarthritis History of DVT (deep vein thrombosis) History of pulmonary embolus (PE) Atrophic vaginitis Bone spur Osteoarthritis calcium calcifications Mixed connective tissue disease History of neuropathy History of spinal stenosis History of diabetes mellitus Acromioclavicular arthrosis Strain of shoulder, left Neck pain Limb weakness Difficulty balancing Fatigue Diabetes Shoulder pain Gastroesophageal reflux disease DJD (degenerative joint disease) of lumbar spine Home Medications ?Medication ?Instructions ?Recorded ?Last Taken ?Type omeprazole 40 mg capsule,delayed 40 mg PO DAILY GERD 08/30/13 09/15/22 History release trazodone 100 mg tablet 100 mg PO QHS mood 08/30/13 09/15/22 History levothyroxine 50 mcg tablet 50 mcg PO DAILY thyroid 10/21/17 09/15/22 History simvastatin 20 mg tablet 20 mg PO DAILY cholesterol 10/21/17 09/15/22 History atenolol 25 mg tablet 25 mg PO DAILY heart 05/18/19 02/17/24 06:34 History methotrexate sodium 2.5 mg tablet 20 mg PO FR fibromyalgia 08/19/20 09/10/22 History leucovorin calcium 10 mg tablet 5 mg PO FR supplement 12/08/20 09/10/22 History insulin glargine 100 unit/mL (3 45 unit subcut QPM dm 09/22/21 09/15/22 History mL) subcutaneous pen (Lantus Solostar U-100 Insulin) cholecalciferol (vitamin D3) 25 25 mcg PO DAILY supplement 09/13/22 09/15/22 History mcg (1,000 unit) capsule insulin lispro 100 unit/mL See Rx Instructions subcut TID 09/13/22 09/16/22 History subcutaneous pen lactobacillus combination no.9 4 4,000 mmu cells PO DAILY supplement 09/13/22 09/15/22 History billion cell capsule (Adult 50 Plus Probiotic) oxycodone-acetaminophen 5 mg-325 1 tab PO Q8H PRN Pain 09/16/22 09/15/22 History mg tablet (Percocet) lisinopril 20 mg tablet 20 mg PO DAILY #30 tabs 09/17/22 Unknown Rx clonidine HCl 0.1 mg tablet 0.1 mg PO Q8H 12/02/22 Unknown History escitalopram oxalate 20 mg tablet 20 mg PO DAILY #90 tabs 09/07/23 Unknown Rx gabapentin 100 mg capsule 100 mg PO TID 90 days #270 caps 09/07/23 Unknown Rx hydroxyzine pamoate 50 mg capsule 50 mg PO QHS mood #30 caps 09/07/23 Unknown Rx flash glucose sensor (FreeStyle #6 ea 11/28/23 Unknown Rx Prema 2 Sensor kit) lorazepam 1 mg tablet 1 mg PO BID mood #60 tabs 01/02/24 Unknown Rx semaglutide 3 mg tablet (Rybelsus) 3 mg PO DAILY 02/10/24 02/10/24 History Allergy/AdvReac Type Severity Reaction Status Date / Time niacin Allergy Itching Verified 02/17/24 06:27 venlafaxine AdvReac Severe Vomiting Verified 02/17/24 06:27 metformin AdvReac Intermediate Diarrhea Verified 02/17/24 06:27 cephalexin (From Keflex) AdvReac Other Verified 02/17/24 06:27 Family History Sister Breast cancer Diabetes Kidney disease Other Arthritis Heart disease Surgical History History of bunionectomy of both great toes History of lumbar fusion History of total right knee replacement Hx of surgical procedure Hx of arthroscopic knee surgery History of carpal tunnel release Hx of hysterectomy History of back surgery Hx of total knee replacement hx of plantar fasciotomy Social History Smoking Status: Former smoker alcohol intake: never substance use type: does not use caffeine: No what type of physical activity do you participate in: none seatbelt use: always do you feel safe at home: Yes additional social history: [id number] [facility] [employer] Patient is disabled Vital Signs Vital Signs Vital Signs: 02/17/24 06:38 02/17/24 06:38 02/17/24 06:46 Temperature 97.3 F L 97.3 F L Temperature Source Temporal Pulse Rate 57 L 57 L Respiratory Rate 16 16 Respiratory Pattern Normal Blood Pressure 142/77 H 142/77 H Blood Pressure Mean 98 Blood Pressure Source Monitor Blood Pressure Position Semi-Fowlers Blood Pressure Location Left Arm Pulse Ox 94 94 Oxygen Delivery Method Room Air Weight Weight: 116.9 kg Body Mass Index (BMI) 44.2 Physical Exam Const alert, oriented x3 and no apparent distress Constitutional Narrative: Dressing left foot is clean, dry and intact with no strikethrough, CFT < 2 seconds to all toes Assessment & Plan Assessment/Plan (1) Hallux rigidus, left foot: (2) Diabetes mellitus with diabetic polyneuropathy: (3) 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: PLAN: Plan s/p left 1st toe Lamar arthroplasty due to recurrent ulceration and limited range of motion - date of surgery 02/17/24 - she has been admitted for pain management, nursing placement and observation. Keep dressing left foot clean, dry and intact No weightbearing left foot Keep left foot elevated DVT Prophylaxis: Lovenox 40mg subc daily starting tomorrow Pain management: Dilaudid, Oxyir, Acetaminophen Diabetes and other chronic medical problems: Consult Hospital Medicine Case management consulted as well for nursing placement
--- NOTE | 2024-02-17 09:38 | RAD_ITS ---
STUDY: X-RAY - LEFT FOOT CLINICAL: Female, 63 years old. Post op TECHNIQUE: 3 view(s) of the foot. COMPARISON: None. FINDINGS: The patient is status post resection of the proximal portion of the proximal phalanx of the great toe with metallic pinning of the distal interphalangeal joint and metatarsophalangeal joint. Postoperative soft tissue changes. RAD/Foot min 3 Views IMPRESSION: Status post resection at the base of the proximal phalanx of the great toe with the fusion with a metallic pin through the distal interphalangeal joint and metatarsophalangeal joint. Postoperative soft tissue changes. Electronically Signed: Stan Corral MD at 10:12 EDT ,
--- NOTE | 2024-02-17 10:13 | PCM.POST.ANE ---
Anesthesia: Postop Eval I Current Vital Signs Temperature: 97.4 F Pulse Rate: 69 Blood Pressure: 121/60 Respiratory Rate: 16 Pulse Ox: 94 Oxygen Delivery Method: Nasal Cannula Oxygen Flow Rate (L/min): 2 Assessment Airway patent: Yes Spontaneous unlabored respirations: Yes Mental status: Awake and Calm nausea: No Vomiting: No Anesthesia Complication: No Fluid Hydration Crystalloid volume administer (ml): 800 Total IV fluid infused: 800 Progress Note Anesthesia document: Postop Eval 1 completed: Yes
--- NOTE | 2024-02-17 11:55 | CASEMGMT ---
Addendum entered by Shelbi Mccarthy 02/17/24 14:49: Pt called and states pt would like [facility] for first choice for SNF. He is aware that therapy will need to work with pt as well. He denies further needs. Original Note: SAM RUSH Assessment: Face to Face with pt for initial transition planning/care coordination assessment. SAM RUSH introduced self and role at [facility], pt voices understanding and consents to assessment. Pt is very drowsy, present in room. Pt agreeable for SAM RUSH to complete assessment with . Care providers, pharmacy, and demographics verified/updated. Admitting Dx:fox arthroplasty first left toe with placement PCP:Lorin Specialists:Kristi, pod; Jesus, psych; regina Ruiz; jacquelyn Shaw Preferred [facility]acy:[facility] Insurance:[employer] for [employer] Prescription Benefit: yes LNOK:Claude Savage, ; Irma Casanova, lori Living Arrangements: Pt lives with in a single story home with 2 steps to enter. Pt reports that pt is usually I in ADL's but sometimes needs his assistance. Pt and split meal prep. Pt obtains groceries and does laundry. Transportation: Pt drives self. DME:O2 through [employer], CPAP, pox, FWW, w/c, CGM with sufficient supplies, insulin with sufficient supply of needles HHC/SNF:Pt has had HHC in the past but cannot recall the name. Pt has been to [facility] in the past. Pt has been at [facility] for inpatient psych last year. Pt states he and his have spoken regarding SNF placement and had a discussion with prior to surgery this morning. He states he cannot take care of pt if she is non wt bearing. He states pt has poor balance at baseline and also has neuropathy that complicates pt care. They have discussed pt going back to [facility] but pt updated pt friend post surgery and the friend suggested [facility]. Pt would like to discuss this with the patient. SAM RUSH wrote name on white board and requested pt/ ask for SAM RUSH once they decided. He is aware pt insurance will require precertification. Noted order for SNF placement by podiatry. Message to requesting order for therapy evals. Updated SW on this pt. Pt states no further concerns/needs. CM to follow. Advised pt to ask CM if any further question/concerns/needs arise, voices understanding. Pt Goal:SNF Plan:TBD pending order for therapy and therapy evals and course of hospitalization.
[2024-02-17] MEDS: 0.9% Normal Saline (250mL Bag) 250 ML 15 ML IV (11:56)
[2024-02-17] MEDS: Acetaminophen 325 MG Tablet 650 MG PO ×2 (12:39→20:59)
[2024-02-17] MEDS: oxyCODONE 5 MG Tablet 10 MG PO ×2 (12:40→20:58)
[2024-02-17 14:24] LABS: Bedside Glucose 153 mg/dL (74-106)
[2024-02-17] MEDS: HYDROmorphone 0.5 MG/0.5 ML SYRINGE IV (14:47)
[2024-02-17] MEDS: 0.9% Saline Lock 10 ML Syringe IV (14:48)
[2024-02-17] MEDS: Clindamycin 600 MG/50 ML BAG 100 MG IV ×2 (14:48→20:59)
--- NOTE | 2024-02-17 15:10 | POSTOPAN2_ITS ---
Anesthesia Postop Eval I Sum Postop Eval Completion status Anesthesia document: Postop Eval 1 completed: Yes Anesthesia Postop Eval I Summary Anesthesia Postop Eval I Summary: Anesthesia Postop Eval I: Assessment Summary Airway patent Yes 02/17/24 10:13 PAPER [email or web address] Spontaneous unlabored Yes 02/17/24 10:13 PAPER [email or web address] respirations Mental status Awake,Calm 02/17/24 10:13 PAPER [email or web address] nausea No 02/17/24 10:13 PAPER [email or web address] Vomiting No 02/17/24 10:13 PAPER [email or web address] Anesthesia Postop Eval I: Fluid Summary Crystalloid volume administer 800 02/17/24 10:13 PAPER [email or web address] (ml) Colloids volume administered ( ml) Blood Product volume administered (ml) Total IV fluid infused 800 02/17/24 10:13 PAPER [email or web address] Anesthesia Postop Eval I: Summary Notes Anesthesia Complication No 02/17/24 10:13 PAPER [email or web address] Anesthesia Complication Comment: Post-operative progress note Anesthesia: Postop Eval II Evaluation Mental status: Awake and Calm Pain Level: 1 nausea: No Vomiting: No Complications Anesthesia Complication: No
--- NOTE | 2024-02-17 15:10 | PCM.POSTANE2 ---
Anesthesia Postop Eval I Sum Postop Eval Completion status Anesthesia document: Postop Eval 1 completed: Yes Anesthesia Postop Eval I Summary Anesthesia Postop Eval I Summary: Anesthesia Postop Eval I: Assessment Summary Airway patent Yes 02/17/24 10:13 FINANCIAL SERVICES [email or web address] Spontaneous unlabored Yes 02/17/24 10:13 FINANCIAL SERVICES [email or web address] respirations Mental status Awake,Calm 02/17/24 10:13 FINANCIAL SERVICES [email or web address].[email or web address] nausea No 02/17/24 10:13 FINANCIAL SERVICES [email or web address] Vomiting No 02/17/24 10:13 FINANCIAL SERVICES [email or web address] Anesthesia Postop Eval I: Fluid Summary Crystalloid volume administer 800 02/17/24 10:13 FINANCIAL SERVICES [email or web address] (ml) Colloids volume administered ( ml) Blood Product volume administered (ml) Total IV fluid infused 800 02/17/24 10:13 FINANCIAL SERVICES [email or web address].[email or web address] Anesthesia Postop Eval I: Summary Notes Anesthesia Complication No 02/17/24 10:13 FINANCIAL SERVICES ASSISTANT.NADER Anesthesia Complication Comment: Post-operative progress note Anesthesia: Postop Eval II Evaluation Mental status: Awake and Calm Pain Level: 1 nausea: No Vomiting: No Complications Anesthesia Complication: No
--- NOTE | 2024-02-17 16:11 | PCM.PN.HOSP ---
Subjective Subjective 63-year-old female with a history of diabetes and fibromyalgia presented to the hospital with a first toe ulcer eating and first toe arthroplasty on the left. She tolerated the procedure well and medicine was consulted postoperatively for medical management Objective Data Objective Data Vital Signs: Vital Signs Temp Pulse Resp BP Pulse Ox O2 Del Method O2 Flow Rate 96.9 F L 57 L 14 122/63 H 97 Nasal Cannula 2 02/17/24 10:44 02/17/24 10:44 02/17/24 10:44 02/17/24 10:40 02/17/24 14:18 02/17/24 14:18 02/17/24 15:14 Oxygen Flow Rate (L/min) 2 Oxygen Delivery Method Nasal Cannula Weight: 257 lb 11.526 oz Body Mass Index (BMI) 44.2 Intake & Output: Intake and Output for Last 24 Hours 02/16/24 02/17/24 02/18/24 03:59 03:59 03:59 Intake Total 262.75 / 262.75 Balance 262.75 / 262.75 Lab / Micro Data Labs: Laboratory Results - last 24 hr 02/17/24 06:36: POC Glucose 153 H Radiography Diagnostic Testing: Radiology Impression Toe X-Ray 02/17/24 07:22 IMPRESSION: Intraoperative fluoroscopic services provided for Lamar arthroplasty of the first Electronically Signed: Stan Corral MD at 14:13 EDT , Foot X-Ray 02/17/24 09:38 IMPRESSION: Status post resection at the base of the proximal phalanx of the great toe with the fusion with a metallic pin through the distal interphalangeal joint and metatarsophalangeal joint. Postoperative soft tissue changes. Electronically Signed: Stan Corral MD at 10:12 EDT , Physical Exam Narrative General: Alert, Oriented x3, Cooperative, No apparent distress HEENT: Atraumatic, PERRLA, EOMI, Normocephalic Oral: Moist Mucosa Neck: Supple, No JVD Lungs: Diminished, Normal air movement, No rhonchi, No wheeze, No rales Cardiovascular: Regular rate, Regular Rhythm, Normal S1, Normal S2, No murmurs Abdomen: Soft, Non Tender, Non-Distended, No Hepato-splenomegaly Extremities: No edema, Capillary Refill Less than 3 Seconds Skin: Dressing intact Musculoskeletal: No Tenderness to Palpation of Joints or Extremities Neurological: No focal neurological deficits, Motor Exam 5/5 strength throughout, Sensory exam intact to light touch and pain Psych/Mental Status: Normal Affect, Appropriate Assessment & Plan Assessment/Plan (1) 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: (2) Hallux rigidus, left foot: PLAN: Plan 1. Recurrent first toe ulcer status post first toe arthroplasty on the left on 02/08/2024 ? Pain management per primary ? Antibiotics per primary 2. Essential HTN/HLD/morbid obesity ? BMI 44.2 ? Will recheck a BMP in the morning and if creatinine is stable can restart lisinopril, continue with atenolol and clonidine ? Continue with simvastatin ? We will monitor make adjustments as necessary 3. DM2 ? Will continue with her home insulin but at a reduced dose ? Sliding scale insulin ? Accu-Cheks ACHS ? We will monitor make adjustments as necessary 4. Fibromyalgia/anxiety/depression ? Takes methotrexate and leucovorin on Fridays ? Can hold while here and can resume next week ? Resume gabapentin as well as her escitalopram, hydroxyzine, and lorazepam 5. GERD ? Stable ? Continue with PPI 6. Hypothyroidism ? Stable ? Continue with Synthroid DVT: Lovenox Charges/Coding Visit Charges Inpatient E&M: 93874 Subs Hosp L2
[2024-02-17] MEDS: traZODone 100 MG Tablet PO (20:58)
[2024-02-17] MEDS: LORazepam 1 MG Tablet PO (20:58)
[2024-02-17] MEDS: hydrOXYzine PAM 25 MG Capsule 50 MG PO (20:58)
[2024-02-17] MEDS: Gabapentin 100 MG Capsule PO (20:59)
[2024-02-17] MEDS: cloNIDine HCl 0.1 MG Tablet PO (21:00)
[2024-02-17] MEDS: Insulin Glargine-YFGN 100 UNIT/ML Pen 30 UNIT SC (21:24)
[2024-02-17] MEDS: Insulin Lispro 100 UNIT/ML INSULN.PEN SC (21:31)
[2024-02-17 22:33] LABS: Bedside Glucose 210 mg/dL (74-106)
[2024-02-18] MEDS: Acetaminophen 325 MG Tablet 650 MG PO ×2 (02:48→14:54)
[2024-02-18] MEDS: oxyCODONE 5 MG Tablet 10 MG PO ×3 (02:49→21:54)
[2024-02-18 02:57] VITALS: BP 113/82; PULSE 76; RESP 16; TEMP 36.9; O2SAT 96
[2024-02-18] MEDS: Clindamycin 600 MG/50 ML BAG 100 MG IV ×3 (06:17→21:54)
[2024-02-18] MEDS: cloNIDine HCl 0.1 MG Tablet PO ×3 (06:18→21:54)
[2024-02-18] MEDS: 0.9% Saline Lock 10 ML Syringe IV ×5 (06:18→21:55)
[2024-02-18] MEDS: Levothyroxine 50 MCG Tablet PO (06:18)
[2024-02-18] MEDS: Gabapentin 100 MG Capsule PO ×3 (06:18→21:54)
[2024-02-18] MEDS: Insulin Lispro 100 UNIT/ML INSULN.PEN SC ×4 (06:21→21:53)
[2024-02-18 06:32] VITALS: BP 138/72; PULSE 65; RESP 16; TEMP 36.1; O2SAT 96
[2024-02-18 06:47] LABS: Bedside Glucose 190 mg/dL (74-106)
[2024-02-18] MEDS: Enoxaparin 40 MG/0.4 ML Syringe SC (10:04)
[2024-02-18] MEDS: Atorvastatin Calcium 10 MG Tablet PO (10:04)
[2024-02-18] MEDS: Escitalopram Oxalate 20 MG Tablet PO (10:04)
[2024-02-18] MEDS: LORazepam 1 MG Tablet PO ×2 (10:04→21:55)
[2024-02-18] MEDS: Nystatin Powder 15gm Bottle 1 APPLIC TOPICAL ×2 (10:05→21:55)
[2024-02-18] MEDS: Atenolol 25 MG Tablet PO (10:06)
[2024-02-18] MEDS: Pantoprazole Sodium 40 MG Tablet PO (10:06)
--- NOTE | 2024-02-18 10:11 | PCM.PN.HOSP ---
Subjective Subjective Doing well, no issues overnight. Has little bit of a headache Objective Data Objective Data Vital Signs: Vital Signs Temp Pulse Resp BP Pulse Ox O2 Del Method O2 Flow Rate 96.9 F L 65 16 138/72 H 96 Nasal Cannula 2 02/18/24 06:32 02/18/24 06:32 02/18/24 06:32 02/18/24 06:32 02/18/24 06:32 02/18/24 08:09 02/18/24 08:09 Oxygen Flow Rate (L/min) 2 Oxygen Delivery Method Nasal Cannula Weight: 257 lb 11.526 oz Body Mass Index (BMI) 44.2 Intake & Output: Intake and Output for Last 24 Hours 02/17/24 02/18/24 02/19/24 03:59 03:59 03:59 Intake Total 867.00 / 867.00 50 / 50 Balance 867.00 / 867.00 50 / 50 Lab / Micro Data Labs: Laboratory Results - last 24 hr 02/17/24 06:36: POC Glucose 153 H 02/17/24 21:30: POC Glucose 210 H 02/18/24 06:20: POC Glucose 190 H Radiography Diagnostic Testing: Radiology Impression Toe X-Ray 02/17/24 07:22 IMPRESSION: Intraoperative fluoroscopic services provided for Lamar arthroplasty of the first Electronically Signed: Stan Corral MD at 14:13 EDT , Foot X-Ray 02/17/24 09:38 IMPRESSION: Status post resection at the base of the proximal phalanx of the great toe with the fusion with a metallic pin through the distal interphalangeal joint and metatarsophalangeal joint. Postoperative soft tissue changes. Electronically Signed: Stan Corral MD at 10:12 EDT , Physical Exam Narrative General: Alert, Oriented x3, Cooperative, No apparent distress HEENT: Atraumatic, PERRLA, EOMI, Normocephalic Oral: Moist Mucosa Neck: Supple, No JVD Lungs: Diminished, Normal air movement, No rhonchi, No wheeze, No rales Cardiovascular: Regular rate, Regular Rhythm, Normal S1, Normal S2, No murmurs Abdomen: Soft, Non Tender, Non-Distended, No Hepato-splenomegaly Extremities: No edema, Capillary Refill Less than 3 Seconds Skin: Dressing intact Musculoskeletal: No Tenderness to Palpation of Joints or Extremities Neurological: No focal neurological deficits, Motor Exam 5/5 strength throughout, Sensory exam intact to light touch and pain Psych/Mental Status: Normal Affect, Appropriate Assessment & Plan Assessment/Plan (1) 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: (2) Hallux rigidus, left foot: PLAN: Plan 1. Recurrent first toe ulcer status post first toe arthroplasty on the left on 02/08/2024 ? Pain management per primary ? Antibiotics per primary 2. Essential HTN/HLD/morbid obesity ? BMI 44.2 ? BMP is pending, continue with atenolol and clonidine ? Continue with simvastatin ? We will monitor make adjustments as necessary 3. DM2 ? Will continue with her home insulin ? Sliding scale insulin ? Accu-Cheks ACHS ? We will monitor make adjustments as necessary 4. Fibromyalgia/anxiety/depression ? Takes methotrexate and leucovorin on Fridays ? Can hold while here and can resume next week ? Resume gabapentin as well as her escitalopram, hydroxyzine, and lorazepam 5. GERD ? Stable ? Continue with PPI 6. Hypothyroidism ? Stable ? Continue with Synthroid DVT: Lovenox Charges/Coding Visit Charges Inpatient E&M: 10813 Subs Hosp L2
[2024-02-18 10:13] VITALS: O2SAT 97
[2024-02-18 10:35] LABS: Absolute Lymphocyte Count 1.34 X10^3/uL (0.83-4.51); Absolute Neutrophil Count 4.6 X10^3/uL (2.0-7.7); Basophil# 0.02 X10^3/uL; Basophil% 0.3 % (0-1); Eosinophil# 0.14 X10^3/uL; Hemoglobin 12.7 g/dL (12.0-15.0); Lymphocyte # 1.34 X10^3/ul (0.83-4.51); Lymphocyte % 19.5 % (19-41); Mean Corpuscular Volume 93.6 fL (81-99); Monocyte# 0.78 X10^3/uL; Monocyte% 11.4 % (0-10); NRBC Flagged by Analyzer 0 % (0-5); Neutrophil # 4.57 X10^3/uL (2.7-7.7); Neutrophil % 66.7 % (47-70); Platelet Count 166 K/mm3 (150-450); RBC Distribution Width CV 13.1 % (11.6-14.6); Red Blood Count 4.38 M/mm3 (4.2-5.4); White Blood Count 6.9 K/mm3 (4.4-11.0)
[2024-02-18 11:09] LABS: Anion Gap 5 (5-15); BUN 11 mg/dL (7-18); BUN/Creat Ratio 11.5 RATIO (10-20); Calcium,Total 8.7 mg/dL (8.5-10.1); Chloride 99 mmol/L (98-107); Creatinine, Serum 0.96 mg/dL (0.55-1.02); EST Glomerular Filtration Rate 62 mL/min (>60); Est Glom Filt Rate - Afr Amer 75 mL/min (>60); Glucose 255 mg/dL (74-106); Potassium 4.6 mmol/L (3.5-5.1); Sodium Level 138 mmol/L (136-145)
--- NOTE | 2024-02-18 11:38 | PCM.PROGNOTE ---
Subjective Subjective Patient was seen this morning for follow up left foot. She is stilling up in chair, foot elevated, no f/c/n/v/calf pain, and appears pain is controlled. She does relates she woke up with a headache but no other symptoms. Objective Data Objective Data Vital Signs: Vital Signs Temp Pulse Resp BP Pulse Ox O2 Del Method O2 Flow Rate 96.9 F L 65 16 138/72 H 97 Nasal Cannula 2 02/18/24 06:32 02/18/24 06:32 02/18/24 06:32 02/18/24 06:32 02/18/24 10:13 02/18/24 08:09 02/18/24 10:13 Oxygen Flow Rate (L/min) 2 Oxygen Delivery Method Nasal Cannula Weight: 116.9 kg Body Mass Index (BMI) 44.2 Intake & Output: Intake and Output for Last 24 Hours 02/16/24 02/17/24 02/18/24 23:59 23:59 23:59 Intake Total 867.00 / 867.00 50 / 50 Balance 867.00 / 867.00 50 / 50 Lab / Micro Data 02/18/24 10:28 02/18/24 10:28 Labs: Laboratory Results - last 24 hr 02/17/24 06:36: POC Glucose 153 H 02/17/24 21:30: POC Glucose 210 H 02/18/24 06:20: POC Glucose 190 H 02/18/24 10:28: WBC 6.9, RBC 4.38, Hgb 12.7, Hct 41.0, MCV 93.6, MCH 29.0, MCHC 31.0 L, RDW Std Deviation 45.0 H, RDW Coeff of Mouna 13.1, Plt Count 166, MPV 9.0, Immature Gran % (Auto) 0.100, Neut % (Auto) 66.7, Lymph % (Auto) 19.5, [place] % (Auto) 11.4 H, Eos % (Auto) 2.0, Baso % (Auto) 0.3, Absolute Neuts (auto) 4.6, Absolute Lymphs (auto) 1.34, Nucleated RBC % 0, Sodium 138, Potassium 4.6, Chloride 99, Carbon Dioxide 34.0 H, Anion Gap 5, BUN 11, Creatinine 0.96, Estim Creat Clear Calc 73.40, Est GFR (MDRD) Af Amer 75, Est GFR (MDRD) Non-Af 62, BUN/Creatinine Ratio 11.5, Glucose 255 H, Calcium 8.7 Radiography Diagnostic Testing: Radiology Impression Toe X-Ray 02/17/24 07:22 IMPRESSION: Intraoperative fluoroscopic services provided for Lamar arthroplasty of the first Electronically Signed: Stan Corral MD at 14:13 EDT , Physical Exam Const alert, oriented x3 and no apparent distress Constitutional Narrative: Dressing left foot is clean, dry and intact with no strikethrough, CFT < 2 seconds to all toes Assessment & Plan Assessment/Plan (1) Hallux rigidus, left foot: (2) Diabetes mellitus with diabetic polyneuropathy: (3) 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: PLAN: Plan s/p left 1st toe Lamar arthroplasty due to recurrent ulceration and limited range of motion - date of surgery 02/17/24 - she has been admitted for pain management, nursing placement and observation. Keep dressing left foot clean, dry and intact No weightbearing left foot Keep left foot elevated DVT Prophylaxis: Lovenox 40mg subc daily Pain management: Dilaudid, Oxyir, Acetaminophen Diabetes and other chronic medical problems: Consult Hospital Medicine Case management consulted as well for nursing placement PT/OT consulted
--- NOTE | 2024-02-18 11:43 | CASEMGMT ---
Reviewed therapy notes, RN CM into pt room pt sitting up in chair. Discussed therapy and pt states she does not feel that she can return home. She states was in and stressed the importance of non wt bearing. Pt states she would like to go to [facility] as first choice and [facility] as second choice. Pt denies need for a list of facilities with quality and resource use data and consistent with the patient?s preferred geographic region, medical needs, and insurance network. Updated SW. Spoke with and hospitalist as well regarding plan.
[2024-02-18 11:57] LABS: Bedside Glucose 231 mg/dL (74-106)
--- NOTE | 2024-02-18 12:45 | CASEMGMT ---
ADVANCE DIRECTIVE VALIDATION Received notice of Advance Directive Validation. Unable to find any documents in the EMR. Met with patient in room to check on advance directives. Patient states does not currently have any advance directives, but has been thinking of completing. Patient expressed would like information and to discuss with . Provided Advance Directive booklet, along with SW Rack Card on topic. Educated patient that if she and discuss, and patient decided would like to complete to call number on rack card and a social media executive can follow up. Patient expressed much appreciation for information and follow up on topic. Current decision making without AD in place: Patient herself, and if becomes unable then patient's . -JOHANNE Griffiths
[2024-02-18] MEDS: Insulin Lispro 100 UNIT/ML INSULN.PEN 10 UNIT SC ×2 (12:46→16:39)
--- NOTE | 2024-02-18 12:49 | CASEMGMT ---
Social Work Collaboration with RN ADRI Mario who reports recommendation is for short term SNF and patient's SNF choices are as follows: [facility] and [facility]. Call to Dacia in admissions for [facility]. Message left of referral. Plan: Anticipate short term SNF. Referral pending with [facility]. Will need insurnce authorization once have an accepting facility. -JOHANNE Griffiths
[2024-02-18 13:35] VITALS: BP 147/70; PULSE 72; RESP 18; TEMP 36.8; O2SAT 92
[2024-02-18] MEDS: Rizatriptan Benzoate 5 MG Tablet PO (16:10)
[2024-02-18 16:50] LABS: Bedside Glucose 263 mg/dL (74-106)
[2024-02-18 17:56] VITALS: BP 114/66; PULSE 77; RESP 18; TEMP 36.5; O2SAT 95
[2024-02-18 21:27] VITALS: BP 118/63; PULSE 68; RESP 16; TEMP 36.6; O2SAT 94
[2024-02-18] MEDS: Insulin Glargine-YFGN 100 UNIT/ML Pen 40 UNIT SC (21:53)
[2024-02-18] MEDS: hydrOXYzine PAM 25 MG Capsule 50 MG PO (21:54)
[2024-02-18] MEDS: traZODone 100 MG Tablet PO (21:54)
[2024-02-19 03:30] VITALS: BP 119/60; PULSE 56; RESP 16; TEMP 36.4; O2SAT 96
[2024-02-19 04:46] LABS: Bedside Glucose 246 mg/dL (74-106)
[2024-02-19 06:33] LABS: Basophil# 0.04 X10^3/uL; Basophil% 0.6 % (0-1); Eosinophil# 0.19 X10^3/uL; Eosinophils% 3.1 % (0-5); Hematocrit 39.1 % (37-47); Lymphocyte % 34.1 % (19-41); Mean Corp Hgb Conc 30.7 g/dL (32-36); Mean Corpuscular Hgb 28.9 pg (27.0-32.0); Mean Corpuscular Volume 94.2 fL (81-99); Mean Platelet Vol. 9.7 fl (6.2-12.0); Monocyte# 0.77 X10^3/uL; Monocyte% 12.5 % (0-10); NRBC Flagged by Analyzer 0 % (0-5); Neutrophil # 3.04 X10^3/uL (2.7-7.7); Neutrophil % 49.4 % (47-70); Platelet Count 166 K/mm3 (150-450); RBC Distribution Width CV 12.9 % (11.6-14.6); RBC Distribution Width SD 44.4 fl (35.1-43.9); Red Blood Count 4.15 M/mm3 (4.2-5.4); White Blood Count 6.2 K/mm3 (4.4-11.0)
[2024-02-19] MEDS: Clindamycin 600 MG/50 ML BAG 100 MG IV ×3 (06:47→21:10)
[2024-02-19] MEDS: cloNIDine HCl 0.1 MG Tablet PO ×3 (06:47→21:10)
[2024-02-19] MEDS: Gabapentin 100 MG Capsule PO ×3 (06:47→21:09)
[2024-02-19] MEDS: Levothyroxine 50 MCG Tablet PO (06:47)
[2024-02-19 06:52] LABS: Anion Gap 3 (5-15); BUN 10 mg/dL (7-18); BUN/Creat Ratio 14.5 RATIO (10-20); Calcium,Total 8.8 mg/dL (8.5-10.1); Chloride 100 mmol/L (98-107); Creatinine, Serum 0.69 mg/dL (0.55-1.02); EST Glomerular Filtration Rate 91 mL/min (>60); Est Glom Filt Rate - Afr Amer 110 mL/min (>60); Estimated Creatinine Clearance 88.08 ml/min; Glucose 175 mg/dL (74-106); Potassium 4.2 mmol/L (3.5-5.1); Sodium Level 137 mmol/L (136-145)
[2024-02-19 07:10] LABS: Bedside Glucose 161 mg/dL (74-106)
[2024-02-19] MEDS: Insulin Lispro 100 UNIT/ML INSULN.PEN 10 UNIT SC ×3 (08:44→16:53)
[2024-02-19] MEDS: Insulin Lispro 100 UNIT/ML INSULN.PEN SC ×4 (08:45→21:10)
[2024-02-19 09:30] VITALS: BP 108/60; PULSE 69; RESP 16; TEMP 36.6; O2SAT 96
[2024-02-19] MEDS: Escitalopram Oxalate 20 MG Tablet PO (10:12)
[2024-02-19] MEDS: Atorvastatin Calcium 10 MG Tablet PO (10:12)
[2024-02-19] MEDS: Pantoprazole Sodium 40 MG Tablet PO (10:12)
[2024-02-19] MEDS: LORazepam 1 MG Tablet PO ×2 (10:12→21:10)
[2024-02-19] MEDS: Nystatin Powder 15gm Bottle 1 APPLIC TOPICAL ×2 (10:13→21:11)
[2024-02-19] MEDS: Enoxaparin 40 MG/0.4 ML Syringe SC (10:13)
[2024-02-19] MEDS: 0.9% Saline Lock 10 ML Syringe IV ×4 (10:43→21:11)
[2024-02-19] MEDS: Acetaminophen 325 MG Tablet 650 MG PO ×2 (10:43→18:54)
[2024-02-19 12:01] LABS: Bedside Glucose 230 mg/dL (74-106)
[2024-02-19] MEDS: Polyethylene Glycol 3350 17 GM PACKET PO (12:27)
--- NOTE | 2024-02-19 12:38 | PCM.PN.HOSP ---
Reason for Visit Reason for Visit: Diagnoses Type 2 diabetes mellitus with diabetic polyneuropathy (02/17/24) Non-pressure chronic ulcer of other part of left foot with fat layer exposed (02/17/24) Hallux rigidus, left foot (02/17/24) Subjective Subjective Patient feeling better overall, has not had bowel movement since but not presently having abdominal pain Objective Data Objective Data Vital Signs: Vital Signs Temp Pulse Resp BP Pulse Ox O2 Del Method O2 Flow Rate 97.9 F 69 16 108/60 96 Nasal Cannula 2 02/19/24 09:30 02/19/24 09:30 02/19/24 09:30 02/19/24 09:30 02/19/24 09:30 02/19/24 09:30 02/19/24 09:30 Oxygen Flow Rate (L/min) 2 Oxygen Delivery Method Nasal Cannula Weight: 116.9 kg Body Mass Index (BMI) 44.2 Intake & Output: Intake and Output for Last 24 Hours 02/17/24 02/18/24 02/19/24 23:59 23:59 23:59 Intake Total 867.00 / 867.00 1441.75 / 1441.75 50 / 50 Output Total 900 / 900 200 / 200 Balance 867.00 / 867.00 541.75 / 541.75 -150 / -150 Lab / Micro Data 02/19/24 05:04 02/19/24 05:04 Labs: Laboratory Results - last 24 hr 02/18/24 16:28: POC Glucose 263 H 02/18/24 21:25: POC Glucose 246 H 02/19/24 05:04: WBC 6.2, RBC 4.15 L, Hgb 12.0, Hct 39.1, MCV 94.2, MCH 28.9, MCHC 30.7 L, RDW Std Deviation 44.4 H, RDW Coeff of Mouna 12.9, Plt Count 166, MPV 9.7, Immature Gran % (Auto) 0.300, Neut % (Auto) 49.4, Lymph % (Auto) 34.1, [place] % (Auto) 12.5 H, Eos % (Auto) 3.1, Baso % (Auto) 0.6, Absolute Neuts (auto) 3.0, Absolute Lymphs (auto) 2.10, Nucleated RBC % 0, Sodium 137, Potassium 4.2, Chloride 100, Carbon Dioxide 34.0 H, Anion Gap 3 L, BUN 10, Creatinine 0.69, Estim Creat Clear Calc 88.08, Est GFR (MDRD) Af Amer 110, Est GFR (MDRD) Non-Af 91, BUN/Creatinine Ratio 14.5, Glucose 175 H, Calcium 8.8 02/19/24 06:51: POC Glucose 161 H 02/19/24 11:40: POC Glucose 230 H Physical Exam Narrative General: Alert, oriented, no apparent distress HEENT: Atraumatic, normocephalic Eyes: Anicteric, normal conjunctiva, extraocular movements grossly intact Neck: Supple Respiratory: Clear to auscultation bilaterally, normal respiratory effort Cardiovascular: Regular rate and rhythm GI: Soft, nontender, nondistended Extremities: No edema, left foot wrapped Musculoskeletal: Moving all extremities Neuro: No overt focal neurological deficits Skin: No rashes appreciated Psych: Cooperative Assessment & Plan Assessment/Plan (1) 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: (2) Diabetes mellitus with diabetic polyneuropathy: (3) Hypertension: QUALIFIERS: Hypertension type: unspecified Qualified Code(s): I10 - Essential (primary) hypertension (4) Hypothyroidism: (5) Depressive 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: (6) Obesity: QUALIFIERS: Obesity type: due to excess calories Obesity classification: adult class 2 (BMI 35 - 39.9) Serious obesity comorbidity presence: with serious comorbidity Body mass index: BMI 39.0-39.9 Qualified Code(s): E66.01 - Morbid (severe) obesity due to excess calories; Z68.39 - Body mass index [BMI] 39.0-39.9, adult PLAN: Plan #Recurrent first toe ulcer status post first toe arthroplasty on the left on 02/08/2024 -PT/OT -Pain management and antibiotics per primary -Patient feeling well overall, plan is for placement #Type 2 diabetes mellitus -Glucose checks and sliding scale insulin -Patient additionally on Premeal and long-acting, fasting glucose in 160s, may need to further adjust Premeal insulin pending progress -Will need monitoring follow-up with PCP on discharge # Hypertension -Continue atenolol and clonidine #Morbid obesity -BMI 44.2 kg/m? -Complicates treatment, prognosis, outcomes -Recommend weight loss and lifestyle changes # Fibromyalgia/depression/anxiety -Takes methotrexate and leucovorin on Fridays ? Can hold while here and can resume next week ? Resume other home medications #GERD -Continue PPI #Hypothyroidism -Continue Synthroid #DVT ppx: Lovenox subcu Ellie Naidu MD Time spent in the patient's overall evaluation,decision-making process, review of diagnostic data, adjustment of management, discussion with other providers, nursing nursing and ancillary staff involved in patient's care documentation, 25 minutes Charges/Coding Visit Charges Inpatient E&M: 24945 Subs Hosp L1
[2024-02-19 15:12] VITALS: BP 118/50; PULSE 68; RESP 16; TEMP 36.6; O2SAT 92
[2024-02-19 16:42] LABS: Bedside Glucose 243 mg/dL (74-106)
[2024-02-19 18:50] VITALS: BP 140/84; PULSE 72; RESP 18; TEMP 37.2; O2SAT 95
[2024-02-19] MEDS: oxyCODONE 5 MG Tablet 10 MG PO (18:55)
[2024-02-19 21:08] VITALS: BP 147/59; PULSE 60; RESP 16; TEMP 36.1; O2SAT 96
[2024-02-19] MEDS: hydrOXYzine PAM 25 MG Capsule 50 MG PO (21:09)
[2024-02-19] MEDS: Insulin Glargine-YFGN 100 UNIT/ML Pen 40 UNIT SC (21:10)
[2024-02-19] MEDS: traZODone 100 MG Tablet PO (21:10)
--- NOTE | 2024-02-19 23:05 | PN_ITS ---
Subjective Subjective Patient was seen this morning for follow up on left foot - she relates she is doing well - headache is resolved. Pain controlled left foot, no f/c/n/v/sob/chest pain or calf pain Objective Data Objective Data Vital Signs: Vital Signs Temp Pulse Resp BP Pulse Ox O2 Del Method O2 Flow Rate 97 F L 60 16 147/59 H 96 Room Air 2 02/19/24 21:08 02/19/24 21:08 02/19/24 21:08 02/19/24 21:08 02/19/24 21:08 02/19/24 21:08 02/19/24 09:30 Oxygen Flow Rate (L/min) 2 Oxygen Delivery Method Room Air Weight: 116.9 kg Body Mass Index (BMI) 44.2 Intake & Output: Intake and Output for Last 24 Hours 02/17/24 02/18/24 02/19/24 23:59 23:59 23:59 Intake Total 867.00 / 867.00 1441.75 / 1441.75 1050 / 1050 Output Total 900 / 900 200 / 200 Balance 867.00 / 867.00 541.75 / 541.75 850 / 850 Lab / Micro Data 02/19/24 05:04 02/19/24 05:04 Labs: Laboratory Results - last 24 hr 02/18/24 21:25: POC Glucose 246 H 02/19/24 05:04: WBC 6.2, RBC 4.15 L, Hgb 12.0, Hct 39.1, MCV 94.2, MCH 28.9, M CHC 30.7 L, RDW Std Deviation 44.4 H, RDW Coeff of Mouna 12.9, Plt Count 166, MPV 9.7, Immature Gran % (Auto) 0.300, Neut % (Auto) 49.4, Lymph % (Auto) 34.1, [place] % (Auto) 12.5 H, Eos % (Auto) 3.1, Baso % (Auto) 0.6, Absolute Neuts (auto) 3.0, Absolute Lymphs (auto) 2.10, Nucleated RBC % 0, Sodium 137, Potassium 4.2, Chloride 100, Carbon Dioxide 34.0 H, Anion Gap 3 L, BUN 10, Creatinine 0.69, Estim Creat Clear Calc 88.08, Est GFR (MDRD) Af Amer 110, Est GFR (MDRD) Non-Af 91, BUN/Creatinine Ratio 14.5, Glucose 175 H, Calcium 8.8 02/19/24 06:51: POC Glucose 161 H 02/19/24 11:40: POC Glucose 230 H 02/19/24 16:16: POC Glucose 243 H Physical Exam Const alert, oriented x3 and no apparent distress Constitutional Narrative: Dressing left foot is clean, dry and intact with no strikethrough, dressing was removed - incision site well coapted, no dehiscense, there is some edema and ecchymosis c/w normal post op course, no cellulitis, no necrosis, no maloder, no drainage, no streaking, tissues are healthy and viable, CFT < 2 seconds to all toes, with vascular status intact, pin in place, no evidence of DVT bilateral - calf is soft and supple and no pain with calf squeeze bilateral. Assessment & Plan Assessment/Plan (1) Hallux rigidus, left foot: (2) Diabetes mellitus with diabetic polyneuropathy: (3) 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: PLAN: Plan s/p left 1st toe Lamar arthroplasty due to recurrent ulceration and limited range of motion - date of surgery 02/17/24 - she has been admitted for pain management, nursing placement and observation. Keep dressing left foot clean, dry and intact - dressing was changed today - pin was cleansed with 70% Isoproply alcohol, applied gauze, kerlix and dedrick dressing. No weightbearing left foot Keep left foot elevated Antibiotic Prophylaxis Clindamycin 600mg IV q 8 hrs DVT Prophylaxis: Lovenox 40mg subc daily Pain management: Dilaudid, Oxyir, Acetaminophen Diabetes and other chronic medical problems: Consult Hospital Medicine Case management consulted as well for nursing placement PT/OT consulted
[2024-02-20] LABS: Bedside Glucose 236 mg/dL (74-106)
[2024-02-20 03:00] VITALS: BP 155/98; PULSE 86; RESP 16; TEMP 36.8; O2SAT 94
[2024-02-20] MEDS: Clindamycin 600 MG/50 ML BAG 100 MG IV ×2 (06:49→13:37)
[2024-02-20] MEDS: cloNIDine HCl 0.1 MG Tablet PO ×2 (06:49→13:32)
[2024-02-20] MEDS: Levothyroxine 50 MCG Tablet PO (06:49)
[2024-02-20] MEDS: Gabapentin 100 MG Capsule PO ×2 (06:49→13:32)
[2024-02-20] MEDS: 0.9% Saline Lock 10 ML Syringe IV (06:50)
[2024-02-20 07:30] VITALS: O2SAT 95
[2024-02-20] MEDS: Insulin Lispro 100 UNIT/ML INSULN.PEN SC ×3 (07:36→16:34)
[2024-02-20 09:00] VITALS: BP 120/62; PULSE 54; RESP 18; TEMP 36.9; O2SAT 94
[2024-02-20] MEDS: Escitalopram Oxalate 20 MG Tablet PO (09:43)
[2024-02-20] MEDS: Atorvastatin Calcium 10 MG Tablet PO (09:43)
[2024-02-20] MEDS: Pantoprazole Sodium 40 MG Tablet PO (09:43)
[2024-02-20] MEDS: Enoxaparin 40 MG/0.4 ML Syringe SC (09:43)
[2024-02-20] MEDS: LORazepam 1 MG Tablet PO (09:43)
[2024-02-20] MEDS: Nystatin Powder 15gm Bottle 1 APPLIC TOPICAL (09:44)
--- NOTE | 2024-02-20 10:04 | PCM.PN.HOSP ---
Reason for Visit Reason for Visit: Diagnoses Hypothyroidism, unspecified (02/17/24) Type 2 diabetes mellitus with diabetic polyneuropathy (02/17/24) Morbid (severe) obesity due to excess calories (02/17/24) Mood disorder due to known physiological condition with depressive features (02/17/24) Essential (primary) hypertension (02/17/24) Non-pressure chronic ulcer of other part of left foot with fat layer exposed (02/17/24) Hallux rigidus, left foot (02/17/24) Body mass index [BMI] 39.0-39.9, adult (02/17/24) Subjective Subjective Just woke up, feeling well overall Objective Data Objective Data Vital Signs: Vital Signs Temp Pulse Resp BP Pulse Ox O2 Del Method O2 Flow Rate 98.2 F 86 16 155/98 H 95 Room Air 2 02/20/24 03:00 02/20/24 03:00 02/20/24 03:00 02/20/24 03:00 02/20/24 07:30 02/20/24 07:43 02/20/24 01:38 Oxygen Flow Rate (L/min) 2 Oxygen Delivery Method Room Air Weight: 116.9 kg Body Mass Index (BMI) 44.2 Intake & Output: Intake and Output for Last 24 Hours 02/18/24 02/19/24 02/20/24 23:59 23:59 23:59 Intake Total 1441.75 / 1441.75 1050 / 1050 50 / 50 Output Total 900 / 900 200 / 200 Balance 541.75 / 541.75 850 / 850 50 / 50 Lab / Micro Data 02/19/24 05:04 02/19/24 05:04 Labs: Laboratory Results - last 24 hr 02/19/24 11:40: POC Glucose 230 H 02/19/24 16:16: POC Glucose 243 H 02/19/24 21:07: POC Glucose 236 H Physical Exam Narrative General: Alert, oriented, no apparent distress HEENT: Atraumatic, normocephalic Eyes: extraocular movements grossly intact Neck: Supple Respiratory: normal respiratory effort Cardiovascular: no edema appreciated GI: nondistended Extremities: Moving all extremities Neuro: No overt focal neurological deficits Psych: Cooperative Assessment & Plan Assessment/Plan (1) 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: (2) Diabetes mellitus with diabetic polyneuropathy: (3) Hypertension: QUALIFIERS: Hypertension type: unspecified Qualified Code(s): I10 - Essential (primary) hypertension (4) Hypothyroidism: (5) Depressive 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: (6) Obesity: QUALIFIERS: Obesity type: due to excess calories Obesity classification: adult class 2 (BMI 35 - 39.9) Serious obesity comorbidity presence: with serious comorbidity Body mass index: BMI 39.0-39.9 Qualified Code(s): E66.01 - Morbid (severe) obesity due to excess calories; Z68.39 - Body mass index [BMI] 39.0-39.9, adult PLAN: Plan #Recurrent first toe ulcer status post first toe arthroplasty on the left on 02/08/2024 -PT/OT -Pain management and antibiotics per primary -Patient feeling well overall, plan is for placement -02/19: Doing well, plan for TCU #Type 2 diabetes mellitus -Glucose checks and sliding scale insulin -Patient additionally on Premeal and long-acting, fasting glucose in 160s, may need to further adjust Premeal insulin pending progress -Will need monitoring follow-up with PCP on discharge -02/19: Increased Premeal insulin, can go to TCU on current regimen with further adjustment at the discretion of TCU physician # Hypertension -Continue atenolol and clonidine #Morbid obesity -BMI 44.2 kg/m? -Complicates treatment, prognosis, outcomes -Recommend weight loss and lifestyle changes # Fibromyalgia/depression/anxiety -Takes methotrexate and leucovorin on Fridays ? Can hold while here and can resume next week ? Resume other home medications -02/19: Stable #GERD -Continue PPI #Hypothyroidism -Continue Synthroid #DVT ppx: Lovenox subcu Ellie Naidu MD Time spent in the patient's overall evaluation,decision-making process, review of diagnostic data, adjustment of management, discussion with other providers, nursing nursing and ancillary staff involved in patient's care documentation, 26 minutes Charges/Coding Visit Charges Inpatient E&M: 05168 Subs Hosp L1
[2024-02-20 10:10] LABS: Bedside Glucose 210 mg/dL (74-106)
[2024-02-20] MEDS: Insulin Lispro 100 UNIT/ML INSULN.PEN 13 UNIT SC ×2 (12:05→16:34)
[2024-02-20 12:24] LABS: Bedside Glucose 180 mg/dL (74-106)
[2024-02-20] MEDS: oxyCODONE 5 MG Tablet 10 MG PO (13:32)
[2024-02-20 14:30] VITALS: BP 120/59; PULSE 82; RESP 18; TEMP 36.6; O2SAT 95
--- NOTE | 2024-02-20 16:06 | CASEMGMT ---
Social Work Pt was accepted and approved for TCU, SW let pt know earlier, she is agreeable. CARLA let Dr. Berry know, he will discharge pt later today. CARLA placed a green sheet on the chart in anticipation of discharge to TCU after this SW has left for the day. FRANCISCA Woo
[2024-02-20] MEDS: Juven (unflavored) Packet 1 PACKET PO (16:42)
[2024-02-20 17:04] LABS: Bedside Glucose 224 mg/dL (74-106)
--- NOTE | 2024-02-20 18:34 | PCM.TXEXTCAR ---
Diet Diet Order/Speech Therapy: 02/20/24 16:37 Diet: Consistent Carb - Calorie Controlled Food consistency:: Regular Liquid Consistency:: Regular/Thin Dietary Modifications:: Cardiac / Heart Healthy Is pt able to select menu?: Yes How many daily calories?: 1800 calorie Wound(s) left foot: Wound Type: Surgical Incision Dressing Change: Keep dressing left foot clean, dry and intact Therapies Weight Bearing: Non weight bearing (No weightbearing left foot) Extremity Affected:: Left Lower Physical Therapy: Eval and Treat Occupational Therapy: Eval and Treat Problem/Diagnosis (1) 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: Status: Chronic Code(s): L97.522 - Non-pressure chronic ulcer of other part of left foot with fat layer exposed (2) Diabetes mellitus with diabetic polyneuropathy: Status: Acute Code(s): E11.42 - Type 2 diabetes mellitus with diabetic polyneuropathy (3) Hypertension: Status: Chronic Code(s): I10 - Essential (primary) hypertension (4) Hypothyroidism: Status: Acute Code(s): E03.9 - Hypothyroidism, unspecified (5) Depressive 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: Status: Acute Code(s): F06.31 - Mood disorder due to known physiological condition with depressive features (6) Obesity: Status: Chronic Code(s): E66.9 - Obesity, unspecified Plan s/p left 1st toe Lamar arthroplasty due to recurrent ulceration and limited range of motion - date of surgery 02/17/24 - she has been admitted for pain management, nursing placement and observation. Keep dressing left foot clean, dry and intact - pin was cleansed with 70% Isoproply alcohol. No weightbearing left foot Keep left foot elevated Antibiotic Prophylaxis Clindamycin 600mg IV q 8 hrs DVT Prophylaxis: Lovenox 40mg subc daily Pain management: Dilaudid, Oxyir, Acetaminophen Diabetes and other chronic medical problems: Consult Hospital Medicine Case management consulted as well for nursing placement PT/OT consulted Allergies/Procedures Done in Hospital Allergies niacin Allergy (Verified 02/17/24 06:27) Itching venlafaxine Adverse Reaction (Severe, Verified 02/17/24 06:27) Vomiting metformin Adverse Reaction (Intermediate, Verified 02/17/24 06:27) Diarrhea cephalexin (From Keflex) Adverse Reaction (Verified 02/17/24 06:27) Other yeast infection Type of Care/Length of Stay Estimated LOS: Convalescent Care Less Than 30 days Type of Care Needed: Skilled Rehab Potential: Good Prognosis: Good Additional Orders/Day of Discharge Day of Discharge: 02/20/24 Dietary and Speech Recommendations Dietitian Recommendations/Changes: Will change diet to 1800 calorie/consistent carbohydrate; cardiac. Will add Medardo BID to support wound healing. Diet education prior to homegoing; plans for TCU noted. Follow Up Care Please Follow Up With: Rafi Berry DPM When: Will see in TCU Discharge Plan Admission Admit Date/Time: 02/17/24 09:25 Attending Provider: Rafi Berry Primary Care Provider: Rica Padgett Consulting Providers: Ellie Naidu Discharge Orders/Prescriptions Prescriptions: New acetaminophen 325 mg Tablet 650 mg PO Q6H PRN PRN (Reason: Pain Score 1-10) Qty: 1 0RF enoxaparin 40 mg/0.4 mL Syringe 40 mg subcut DAILY Qty: 4 0RF insulin glargine-yfgn 100 unit/mL (3 mL) Insulin Pen 40 unit subcut QPM Qty: 0 0RF oxycodone 5 mg Tablet 10 mg PO Q6H PRN PRN (Reason: Pain Score 4-10) 3 Days Qty: 14 0RF insulin lispro [Humalog KwikPen Insulin] 100 unit/mL Insulin Pen 13 unit subcut TIDAC Qty: 0 0RF insulin lispro [Humalog KwikPen Insulin] 100 unit/mL Insulin Pen See Protocol subcut ACHS Qty: 0 0RF Protocol: 4. Sliding Scale Insulin High-Med Dosing Condition: 150-199 mg/dl = 2 units Condition: 200-259 mg/dl = 4 units Condition: 260-324 mg/dl = 6 units Condition: 325-374 mg/dl = 8 units Condition: 375-409 mg/dl = 10 units Condition: 410-449 mg/dl = 11 units Condition: Greater than 449 call physician Protocol Text: - Use for Total Daily Dose of Insulin 56-80 units - Patient who are insulin resistant or septic HIGH MEDIUM DOSING ALGORITHM Medardo (with collagen) 7-7-1.5 gram Powder In Packet 1 packet PO BIDCM Qty: 0 0RF Continued methotrexate sodium 2.5 mg tablet 20 mg PO FR cholecalciferol (vitamin D3) 25 mcg (1,000 unit) capsule 25 mcg PO DAILY Adult 50 Plus Probiotic 4 billion cell capsule 4,000 mmu cells PO DAILY Rx Instructions: administer with a meal clonidine HCl 0.1 mg tablet 0.1 mg PO Q8H Patient Comments: take 1 tablet by mouth three times a day if needed for anxiety or TREMOR(S) escitalopram oxalate 20 mg tablet 20 mg PO DAILY Qty: 90 1RF gabapentin 100 mg capsule 100 mg PO TID 90 Days Qty: 270 2RF hydroxyzine pamoate 50 mg capsule 50 mg PO QHS Qty: 30 2RF omeprazole 40 MG capsule 40 mg PO DAILY Patient Comments: ACID REFLEX trazodone 100 MG tablet 100 mg PO QHS Patient Comments: DEPRESSION levothyroxine 50 MCG tablet 50 mcg PO DAILY simvastatin 20 MG tablet 20 mg PO DAILY atenolol 25 MG tablet 25 mg PO DAILY leucovorin calcium 10 MG tablet 5 mg PO FR lisinopril 20 mg Tablet 20 mg PO DAILY Qty: 30 0RF (DME) FreeStyle Prema 2 Sensor Kit See Rx Instructions .Route Qty: 6 3RF Rx Instructions: 1 sensor q 14 days lorazepam 1 mg tablet 1 mg PO BID Qty: 60 1RF Discontinued insulin glargine [Lantus Solostar U-100 Insulin] 100 unit/mL (3 mL) Insulin Pen 45 unit SUBCUT QPM insulin lispro 100 unit/mL insulin pen See Rx Instructions SUBCUT TID Patient Comments: SLIDING SCALE Rx Instructions: 25 subcutaneously three times a day; with meals 12 units with snack oxycodone-acetaminophen [Percocet] 5-325 mg Tablet 1 tab PO Q8H PRN (Reason: Pain) Rybelsus 3 mg tablet 3 mg PO DAILY Referrals / Follow Up: Rica Padgett DO [Primary Care Provider] - Disposition Disposition (needs filled in before D/C Order can be placed): [facility] (3) Hypertension Qualifiers: Hypertension type: unspecified Qualified Code(s): I10 - Essential (primary) hypertension (6) Obesity Qualifiers: Obesity type: due to excess calories Obesity classification: adult class 2 (BMI 35 - 39.9) Serious obesity comorbidity presence: with serious comorbidity Body mass index: BMI 39.0-39.9 Qualified Code(s): E66.01 - Morbid (severe) obesity due to excess calories; Z68.39 - Body mass index [BMI] 39.0-39.9, adult
--- NOTE | 2024-02-20 18:35 | DS.PCM_ITS ---
Providers Date of Admission: 02/17/24 Primary Care Physician: Dr. Rica Padgett, Consultations 02/17/24 09:29 Consult: Hospitalist Routine Consulting Provider: Abhishek De Santiago Reason for Consult: diabetes and other chronic medial problems EMERGENT Consult: No MD Notified: Yes Date Notified: 02/17/24 Time Notified: 09:29 Method of Notification: Text Reason For Visit: Lamar arthroplasty first left toe with placement Diagnosis Discharge Diagnosis (1) 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: Status: Chronic Code(s): L97.522 - Non-pressure chronic ulcer of other part of left foot with fat layer exposed (2) Diabetes mellitus with diabetic polyneuropathy: Status: Acute Code(s): E11.42 - Type 2 diabetes mellitus with diabetic polyneuropathy (3) Hypertension: Status: Chronic Code(s): I10 - Essential (primary) hypertension Qualifiers: Hypertension type: unspecified Qualified Code(s): I10 - Essential (primary) hypertension (4) Hypothyroidism: Status: Acute Code(s): E03.9 - Hypothyroidism, unspecified (5) Depressive 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: Status: Acute Code(s): F06.31 - Mood disorder due to known physiological condition with depressive features (6) Obesity: Status: Chronic Code(s): E66.9 - Obesity, unspecified Qualifiers: Obesity type: due to excess calories Obesity classification: adult class 2 (BMI 35 - 39.9) Serious obesity comorbidity presence: with serious comorbidity Body mass index: BMI 39.0-39.9 Qualified Code(s): E66.01 - Morbid (severe) obesity due to excess calories; Z68.39 - Body mass index [BMI] 39.0- 39.9, adult Plan s/p left 1st toe Lamar arthroplasty due to recurrent ulceration and limited range of motion - date of surgery 02/17/24 - she has been admitted for pain management, nursing placement and observation. Keep dressing left foot clean, dry and intact - pin was cleansed with 70% Isoproply alcohol. No weightbearing left foot Keep left foot elevated Antibiotic Prophylaxis Clindamycin 600mg IV q 8 hrs DVT Prophylaxis: Lovenox 40mg subc daily Pain management: Dilaudid, Oxyir, Acetaminophen Diabetes and other chronic medical problems: Consult Hospital Medicine Case management consulted as well for nursing placement PT/OT consulted Medications at Discharge Home Medications omeprazole 40 mg capsule,delayed release 40 mg PO DAILY GERD 08/30/13 trazodone 100 mg tablet 100 mg PO QHS mood 08/30/13 levothyroxine 50 mcg tablet 50 mcg PO DAILY thyroid 10/21/17 simvastatin 20 mg tablet 20 mg PO DAILY cholesterol 10/21/17 atenolol 25 mg tablet 25 mg PO DAILY heart 05/18/19 methotrexate sodium 2.5 mg tablet 20 mg PO FR fibromyalgia 08/19/20 leucovorin calcium 10 mg tablet 5 mg PO FR supplement 12/08/20 cholecalciferol (vitamin D3) 25 mcg (1,000 unit) capsule 25 mcg PO DAILY supplement 09/13/22 lactobacillus combination no.9 4 billion cell capsule (Adult 50 Plus Probiotic) 4,000 mmu cells PO DAILY supplement 09/13/22 lisinopril 20 mg tablet 20 mg PO DAILY #30 tabs 09/17/22 clonidine HCl 0.1 mg tablet 0.1 mg PO Q8H 12/02/22 escitalopram oxalate 20 mg tablet 20 mg PO DAILY #90 tabs 09/07/23 gabapentin 100 mg capsule 100 mg PO TID 90 days #270 caps 09/07/23 hydroxyzine pamoate 50 mg capsule 50 mg PO QHS mood #30 caps 09/07/23 flash glucose sensor (FreeStyle Prema 2 Sensor kit) #6 ea 11/28/23 lorazepam 1 mg tablet 1 mg PO BID mood #60 tabs 01/02/24 acetaminophen 325 mg tablet 650 mg (2 x 325 mg) PO Q6H PRN PRN Pain Score 1-10 #1 TAB 02/20/24 arginine 7 gram-glutam 7 gram-CaHMB 1.5 [id number] oral pwd pkt (Medardo (with collagen)) 1 packet PO BIDCM #0 ea 02/20/24 enoxaparin 40 mg/0.4 mL subcutaneous syringe 40 mg (0.4 mL) subcut DAILY #4 mL 02/20/24 insulin glargine-yfgn 100 unit/mL (3 mL) subcutaneous pen 40 unit (0.4 mL) subcut QPM #0 mL 02/20/24 insulin lispro 100 unit/mL subcutaneous pen (Humalog KwikPen (U-100) Insulin) 13 unit (0.13 mL) subcut TIDAC #0 mL 02/20/24 insulin lispro 100 unit/mL subcutaneous pen (Humalog KwikPen (U-100) Insulin) See Protocol subcut ACHS #0 mL 02/20/24 oxycodone 5 mg tablet 10 mg (2 x 5 mg) PO Q6H PRN PRN Pain Score 4-10 3 days #14 tabs 02/20/24 Physical Exam Const alert, oriented x3 and no apparent distress Constitutional Narrative: Dressing left foot is clean, dry and intact with no strikethrough, CFT < 2 seconds to all toes, pin in place, no evidence of DVT bilateral - calf is soft and supple and no pain with calf squeeze bilateral. Weight / BMI Weight Weight: 116.9 kg Body Mass Index (BMI) 44.2 ABG / Lab / Microbiology Data 02/19/24 05:04 02/19/24 05:04 Laboratory: Laboratory Results - last 24 hr 02/19/24 21:07: POC Glucose 236 H 02/20/24 07:33: POC Glucose 210 H 02/20/24 12:02: POC Glucose 180 H 02/20/24 16:32: POC Glucose 224 H D/C Instructions Please Follow Up With: Rafi Berry DPM Meaningful Use Info Meaningful Use Meaningful Use Diagnoses (Choose all that apply): None applicable Ischemic Stroke Statin Dosing Therapy Reference: STATIN DOSE THERAPY REFERENCE: * Patients > 75 years receive moderate or high dose statin therapy. * Patients 75 years or YOUNGER should receive HIGH intensity statin dose unless contraindicated. You will be required to document reason for non-treatment if statin daily dose does not meet guidelines. HIGH DOSE STATIN THERAPY DAILY Atorvastatin > than or = to 40 mg Rosuvastatin > than or = to 20 mg Amlodipine + Atorvastatin > than or = to 2.5/40 mg Ezetimibe + Simvastatin 10/80 mg Simvastatin 80mg Discharge Plan Admission Admit Date/Time: 02/17/24 09:25 Attending Provider: Rafi Berry Primary Care Provider: Rica Padgett Consulting Providers: Ellie Naidu Discharge Orders/Prescriptions Prescriptions: New acetaminophen 325 mg Tablet 650 mg PO Q6H PRN PRN (Reason: Pain Score 1-10) Qty: 1 0RF enoxaparin 40 mg/0.4 mL Syringe 40 mg subcut DAILY Qty: 4 0RF insulin glargine-yfgn 100 unit/mL (3 mL) Insulin Pen 40 unit subcut QPM Qty: 0 0RF oxycodone 5 mg Tablet 10 mg PO Q6H PRN PRN (Reason: Pain Score 4-10) 3 Days Qty: 14 0RF insulin lispro [Humalog KwikPen Insulin] 100 unit/mL Insulin Pen 13 unit subcut TIDAC Qty: 0 0RF insulin lispro [Humalog KwikPen Insulin] 100 unit/mL Insulin Pen See Protocol subcut ACHS Qty: 0 0RF Protocol: 4. Sliding Scale Insulin High-Med Dosing Condition: 150-199 mg/dl = 2 units Condition: 200-259 mg/dl = 4 units Condition: 260-324 mg/dl = 6 units Condition: 325-374 mg/dl = 8 units Condition: 375-409 mg/dl = 10 units Condition: 410-449 mg/dl = 11 units Condition: Greater than 449 call physician Protocol Text: - Use for Total Daily Dose of Insulin 56-80 units - Patient who are insulin resistant or septic HIGH MEDIUM DOSING ALGORITHM Medardo (with collagen) 7-7-1.5 gram Powder In Packet 1 packet PO BIDCM Qty: 0 0RF Continued methotrexate sodium 2.5 mg tablet 20 mg PO FR cholecalciferol (vitamin D3) 25 mcg (1,000 unit) capsule 25 mcg PO DAILY Adult 50 Plus Probiotic 4 billion cell capsule 4,000 mmu cells PO DAILY Rx Instructions: administer with a meal clonidine HCl 0.1 mg tablet 0.1 mg PO Q8H Patient Comments: take 1 tablet by mouth three times a day if needed for anxiety or TREMOR(S) escitalopram oxalate 20 mg tablet 20 mg PO DAILY Qty: 90 1RF gabapentin 100 mg capsule 100 mg PO TID 90 Days Qty: 270 2RF hydroxyzine pamoate 50 mg capsule 50 mg PO QHS Qty: 30 2RF omeprazole 40 MG capsule 40 mg PO DAILY Patient Comments: ACID REFLEX trazodone 100 MG tablet 100 mg PO QHS Patient Comments: DEPRESSION levothyroxine 50 MCG tablet 50 mcg PO DAILY simvastatin 20 MG tablet 20 mg PO DAILY atenolol 25 MG tablet 25 mg PO DAILY leucovorin calcium 10 MG tablet 5 mg PO FR lisinopril 20 mg Tablet 20 mg PO DAILY Qty: 30 0RF (DME) FreeStyle Prema 2 Sensor Kit See Rx Instructions .Route Qty: 6 3RF Rx Instructions: 1 sensor q 14 days lorazepam 1 mg tablet 1 mg PO BID Qty: 60 1RF Discontinued insulin glargine [Lantus Solostar U-100 Insulin] 100 unit/mL (3 mL) Insulin Pen 45 unit SUBCUT QPM insulin lispro 100 unit/mL insulin pen See Rx Instructions SUBCUT TID Patient Comments: SLIDING SCALE Rx Instructions: 25 subcutaneously three times a day; with meals 12 units with snack oxycodone-acetaminophen [Percocet] 5-325 mg Tablet 1 tab PO Q8H PRN (Reason: Pain) Rybelsus 3 mg tablet 3 mg PO DAILY Referrals / Follow Up: Rica Padgett DO [Primary Care Provider] - Disposition Disposition (needs filled in before D/C Order [facility] be placed[facility]
--- NOTE | 2024-02-20 18:42 | NURSING ---
Report called to Ricardo at [facility] and pt is going to room 16.
== END 2024-02-20 18:53 | disposition skilled nursing facility (03) | DRG 504 ==
LOC: AC 10:02 → SDC 10:27 → MS3 10:27
PROVIDERS: Family Medicine; Admitting Provider Podiatrist; PCP Family Medicine; Referring Provider Podiatrist; Visit Provider Podiatrist
PROC: 0QSR04Z Reposition Left Toe Phalanx with Internal Fixation Device, Open Approach (ICD-10-PCS; principal; 2024-02-17 07:15)
DX: M20.22 Hallux rigidus, left foot (principal); Z68.41 Body mass index [BMI] 40.0-44.9, adult; E66.2 Morbid (severe) obesity with alveolar hypoventilation; E11.621 Type 2 diabetes mellitus with foot ulcer; E11.42 Type 2 diabetes mellitus with diabetic polyneuropathy; Z79.4 Long term (current) use of insulin; L97.522 Non-pressure chronic ulcer of other part of left foot with fat layer exposed; I10 Essential (primary) hypertension; F32.A Depression, unspecified; E03.9 Hypothyroidism, unspecified; E78.00 Pure hypercholesterolemia, unspecified; M79.7 Fibromyalgia; K21.9 Gastro-esophageal reflux disease without esophagitis; F06.31 Mood disorder due to known physiological condition with depressive features; M20.5X2 Other deformities of toe(s) (acquired), left foot; Z79.890 Hormone replacement therapy; Z79.899 Other long term (current) drug therapy; Z87.891 Personal history of nicotine dependence
CPT/HCPCS: 36415; 73630; 73660; 76000; 80048; 82962; 85025; 88304; 88311; 97110; 97162; 97166; 97530; 97535; J7050; J7120; A4216; J2405

== ENCOUNTER 2024-02-20 18:58 | Inpatient (IN) | payer MEDICARE, OTHER, SELFPAY ==
[2024-02-20 20:27] VITALS: BP 142/66; PULSE 62; RESP 16; O2SAT 96
--- NOTE | 2024-02-20 20:48 | NURSING ---
Dr. Moise notified of admit via phone. Per Dr. Moise, D/c sliding scale Lispro and Freestyle tyrone as listed on discharge med list
[2024-02-20 20:49] VITALS: PULSE 62; RESP 16; O2SAT 95
--- NOTE | 2024-02-20 21:08 | HP.PCM_ITS ---
HPI - General General Date of Admission: 02/20/24 Date of Service: 02/21/24 Chief Complaint: Here for rehabilitation. HPI Narrative FLEX WOOTEN, is a 63 Female who presents with following: Patient has left 1st toe recurrent ulcer, decreased range of motion, diabetic polyneuropathy. 02/17/2024 Admit [facility]. 02/17/2024 Dr. Berry performed left 1st toe arthroplasty ([facility]). [facility] LLE. 02/17/2024 BMP in AM before restarting Lisinopril. Hold MTX, Hold Leucovorin, resume next week. 02/18/2024 Doing well, mild headache. 02/18/2024 Lovenox 40mg sc daily DVT prophylaxis. Tylenol, Oxycodone, Dilaudid for pain control. 02/19/2024 Feeling better overall, but no bowel movement. PT/OT. 02/19/2024 Headache resolved, left foot pain controlled. Clindamycin 600mg iv q8 left foot post op. 02/20/2024 Admit to TCU with debility, here for rehabilitation, strengthening, prior to discharge home with . [facility] Medical History (Updated 02/20/24 @ 21:[address] Chirag Moise MD) Gastroesophageal reflux disease MRSA infection Uses wheelchair Walker as ambulation aid High cholesterol CPAP (continuous positive airway pressure) dependence Sleep apnea Anxiety disorder, unspecified Chronic pain Depressive 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 Obesity hypoventilation syndrome Obesity Normal stress echocardiogram Wears glasses PTSD (post-traumatic stress disorder) Depression Anxiety Thyroid disease Insulin dependent diabetes mellitus Ambulates with cane Fibromyalgia Arthritis DVT (deep venous thrombosis) High cholesterol Migraine headache Back pain Gait instability Syncope Dietary restriction History of diverticulitis Gastric reflux Former smoker ASV (adaptive servo-ventilation) use counseling On home oxygen therapy Shortness of breath on exertion Leg cramps History of pain when walking History of edema History of stress test Hypertension Implantable intrathecal infusion pump present Mixed connective tissue disease Osteoarthritis History of DVT (deep vein thrombosis) History of pulmonary embolus (PE) Atrophic vaginitis Bone spur Osteoarthritis calcium calcifications Mixed connective tissue disease History of neuropathy History of spinal stenosis History of diabetes mellitus Acromioclavicular arthrosis Strain of shoulder, left Neck pain Limb weakness Difficulty balancing Fatigue Diabetes Shoulder pain DJD (degenerative joint disease) of lumbar spine Home Medications ?Medication ?Instructions ?Recorded ?Last Taken ?Type omeprazole 40 mg capsule,delayed 40 mg PO DAILY GERD 08/30/13 02/20/24 History release trazodone 100 mg tablet 100 mg PO QHS mood 08/30/13 02/19/24 History levothyroxine 50 mcg tablet 50 mcg PO DAILY thyroid 10/21/17 09/15/22 History simvastatin 20 mg tablet 20 mg PO DAILY cholesterol 10/21/17 02/20/24 History atenolol 25 mg tablet 25 mg PO DAILY heart 05/18/19 02/18/24 History methotrexate sodium 2.5 mg tablet 20 mg PO FR fibromyalgia 08/19/20 09/10/22 History leucovorin calcium 10 mg tablet 5 mg PO FR supplement 12/08/20 09/10/22 History cholecalciferol (vitamin D3) 25 25 mcg PO DAILY supplement 09/13/22 09/15/22 History mcg (1,000 unit) capsule lactobacillus combination no.9 4 4,000 mmu cells PO DAILY supplement 09/13/22 09/15/22 History billion cell capsule (Adult 50 Plus Probiotic) lisinopril 20 mg tablet 20 mg PO DAILY blood pressure #30 09/17/22 Unknown Rx tabs clonidine HCl 0.1 mg tablet 0.1 mg PO Q8H anxiety/tremors 12/02/22 02/20/24 13:30 History escitalopram oxalate 20 mg tablet 20 mg PO DAILY mood #90 tabs 09/07/23 02/20/24 Rx gabapentin 100 mg capsule 100 mg PO TID nerve pain 90 days 09/07/23 02/20/24 13:30 Rx #270 caps hydroxyzine pamoate 50 mg capsule 50 mg PO QHS mood #30 caps 09/07/23 Unknown Rx flash glucose sensor (FreeStyle #6 ea 11/28/23 Unknown Rx Prema 2 Sensor kit) lorazepam 1 mg tablet 1 mg PO BID mood #60 tabs 01/02/24 Unknown Rx acetaminophen 325 mg tablet 650 mg (2 x 325 mg) PO Q6H PRN PRN 02/20/24 02/19/24 Rx Pain Score 1-10 #1 TAB arginine 7 gram-glutam 7 1 packet PO BIDCM supplement #0 ea 02/20/24 02/20/24 16:40 Rx gram-CaHMB 1.5 [id number]-min oral pwd pkt (Medardo (with collagen)) enoxaparin 40 mg/0.4 mL 40 mg (0.4 mL) subcut DAILY blood 02/20/24 02/20/24 Rx subcutaneous syringe thinner #4 mL insulin glargine-yfgn 100 unit/mL 40 unit (0.4 mL) subcut QPM 02/20/24 02/19/24 Rx (3 mL) subcutaneous pen diabetes #0 mL insulin lispro 100 unit/mL 13 unit (0.13 mL) subcut TIDAC 02/20/24 02/20/24 16:25 Rx subcutaneous pen (Humalog KwikPen diabetes #0 mL (U-100) Insulin) insulin lispro 100 unit/mL See Protocol subcut ACHS diabetes 02/20/24 02/20/24 Rx subcutaneous pen (Humalog KwikPen #0 mL (U-100) Insulin) oxycodone 5 mg tablet 10 mg (2 x 5 mg) PO Q6H PRN PRN 02/20/24 02/20/24 Rx Pain Score 4-10 3 days #14 tabs Allergy/AdvReac Type Severity Reaction Status Date / Time niacin Allergy Itching Verified 02/17/24 06:27 venlafaxine AdvReac Severe Vomiting Verified 02/17/24 06:27 metformin AdvReac Intermediate Diarrhea Verified 02/17/24 06:27 cephalexin (From Keflex) AdvReac Other Verified 02/17/24 06:27 Family History Sister Breast cancer Diabetes Kidney disease Other Arthritis Heart disease Surgical History History of bunionectomy of both great toes History of lumbar fusion History of total right knee replacement Hx of surgical procedure Hx of arthroscopic knee surgery History of carpal tunnel release Hx of hysterectomy History of back surgery Hx of total knee replacement hx of plantar fasciotomy Social History (Updated 02/20/24 @ 21:[address] Chirag Moise MD) household members: spouse Smoking Status: Former smoker alcohol intake: never substance use type: does not use caffeine: No what type of physical activity do you participate in: none seatbelt use: always do you feel safe at home: Yes additional social history: [id number] Patient is disabled ROS Constitutional Constitutional: Denies chills, fever(s) or weight gain ENT HEENT: Denies headache(s), nasal congestion or nasal discharge Cardiovascular Cardiovascular: Denies chest pain or palpitations Respiratory/Chest Respiratory/Chest: Denies cough, excessive phlegm production or shortness of breath with exertion Gastrointestinal Gastrointestinal: Denies abdominal pain, nausea or vomiting Genitourinary Genitourinary: Denies dysuria Musculoskeletal Musculoskeletal: Denies joint pain or joint swelling Integumentary Integumentary: Denies rash or wounds Neurologic Neurologic: Denies focal weakness, numbness or tingling Psychiatric Psychiatric: Denies anxiety, auditory hallucinations, depression, homicidal ideation or suicidal ideation Vital Signs Vital Signs Vital Signs: 02/20/24 20:27 02/20/24 20:49 Pulse Rate 62 62 Pulse Rhythm Regular Pulse Strength Normal (2+) Respiratory Rate 16 16 Respiratory Effort Normal Non-Labored Respiratory Depth Normal Respiratory Pattern Normal Blood Pressure 142/66 H Blood Pressure Mean 91 Pulse Ox 96 95 Oxygen Delivery Method Room Air Room Air Physical Exam Const alert General Appearance: cooperative HEENT normocephalic Eyes PERRL and EOMs intact bilaterally Neck supple, no JVD and no carotid bruits Resp normal respiratory effort, normal air movement and clear to auscultation bilaterally Cardio regular rate and regular rhythm GI normal to inspection, nondistended, normoactive bowel sounds, non-tender and non-distended Extremity normal capillary refill Extremity Narrative: Left foot dressed. General Extremity: Negative for edema Skin no rashes or lesions noted General Skin Exam: no breakdown Psych affect normal Appearance: appropriate Results Lab / Micro Data 02/21/24 05:23 02/21/24 05:23 Assessment & Plan Assessment/Plan (1) Debility: (2) 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: (3) Depression: (4) Gastroesophageal reflux disease: (5) Anxiety: (6) Insomnia: (7) Hypothyroidism: (8) Hyperlipidemia: (9) Type 2 diabetes mellitus with hyperglycemia: (10) Essential (primary) hypertension: (11) Diabetic polyneuropathy: (12) Fibromyalgia: PLAN: Plan 63 year old female with below past medical history significant for recurrent left great toe recurrent ulcer, underwent left great toe arthroplasty ([facility]) 02/17/[address] Berry, admitted to TCU with debility, here for rehabilitation, strengthening, prior to discharge home with . * Debility - PT/OT. * Pain - Tylenol 1000mg q6 prn pain (1-3), Oxycodone 10mg q4 prn pain (4-10). * Bowel - senna/colace 2 tablets bid, Magnesium citrate 300ml daily prn. * Adult immunization - Administer pneumonia vaccine, covid vaccine, flu vaccine as appropriate. * DVT prophylaxis - Lovenox 40mg sc daily. * Hypertension - Atenolol 25mg daily, Lisinopril 20mg daily, Clonidine 0.1mg q8. * Hyperlipidemia - Atorvastatin 10mg qhs. * Vitamin D deficiency - D3 25mcg daily. * Depression - Lexapro 20mg daily, stable chronic senior care use, GDR not recommended. * Neuropathic pain - Gabapentin 100mg tid. * Insomnia - Trazodone 100mg qhs, Hydroxyzine 50mg qhs, stable chronic senior care use, GDR not recommended. * Diabetes Mellitus II - Glargine 40 units sc qapm, Humalog 13 units tidac. * Nutrition - Medardo 1 packet po bidcm. * GI prophylaxis - Lactobacillus 1 capsule daily. * MCTD - MTX 20mg qweek, Leucovorin 5mg qweek. * Hypothyroidism - Levothyroxine 50mcg daily. 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 * GERD - Pantoprazole 40mg daily.
[2024-02-20 21:31] LABS: Bedside Glucose 312 mg/dL (74-106)
[2024-02-20] MEDS: LORazepam 1 MG Tablet PO (22:14)
[2024-02-20] MEDS: Senna/Docusate Sodium 1 Tablet 2 TABLET PO (22:14)
[2024-02-20] MEDS: cloNIDine HCl 0.1 MG Tablet PO (22:14)
[2024-02-20] MEDS: Atorvastatin Calcium 10 MG Tablet PO (22:15)
[2024-02-20] MEDS: traZODone 100 MG Tablet PO (22:16)
[2024-02-20] MEDS: hydrOXYzine PAM 25 MG Capsule 50 MG PO (22:16)
[2024-02-20] MEDS: Gabapentin 100 MG Capsule PO (22:17)
[2024-02-20] MEDS: Insulin Glargine-YFGN 100 UNIT/ML Pen 40 UNIT SC (22:39)
[2024-02-21 06:00] VITALS: BP 123/56; PULSE 78; RESP 16; TEMP 36.6
[2024-02-21] MEDS: Levothyroxine 50 MCG Tablet PO (06:21)
[2024-02-21] MEDS: Gabapentin 100 MG Capsule PO ×3 (06:21→21:49)
[2024-02-21] MEDS: cloNIDine HCl 0.1 MG Tablet PO ×3 (06:21→21:54)
[2024-02-21 07:08] LABS: Anion Gap 5 (5-15); BUN 13 mg/dL (7-18); BUN/Creat Ratio 17.3 RATIO (10-20); Calcium,Total 8.9 mg/dL (8.5-10.1); Chloride 101 mmol/L (98-107); Creatinine, Serum 0.75 mg/dL (0.55-1.02); EST Glomerular Filtration Rate 82 mL/min (>60); Est Glom Filt Rate - Afr Amer 99 mL/min (>60); Glucose 237 mg/dL (74-106); Potassium 4.2 mmol/L (3.5-5.1); Sodium Level 139 mmol/L (136-145)
[2024-02-21 07:11] LABS: Bedside Glucose 232 mg/dL (74-106)
[2024-02-21 08:49] VITALS: BP 117/48; PULSE 74; RESP 18; O2SAT 100
[2024-02-21] MEDS: Juven (unflavored) Packet 1 PACKET PO ×2 (09:07→18:02)
[2024-02-21] MEDS: Senna/Docusate Sodium 1 Tablet 2 TABLET PO ×2 (09:07→21:53)
[2024-02-21] MEDS: Enoxaparin 40 MG/0.4 ML Syringe SC (09:07)
[2024-02-21] MEDS: Atenolol 25 MG Tablet PO (09:07)
[2024-02-21] MEDS: Escitalopram Oxalate 20 MG Tablet PO (09:07)
[2024-02-21] MEDS: Cholecalciferol (VIT D3) 25 MCG TABLET (1,000 UNITS) PO (09:07)
[2024-02-21] MEDS: LORazepam 1 MG Tablet PO ×2 (09:08→21:48)
[2024-02-21] MEDS: oxyCODONE 5 MG Tablet 10 MG PO ×2 (09:08→13:58)
[2024-02-21] MEDS: Lisinopril 20 MG Tablet PO (09:08)
[2024-02-21] MEDS: Pantoprazole Sodium 40 MG Tablet PO (09:08)
[2024-02-21 09:32] LABS: Hemoglobin 12.7 g/dL (12.0-15.0); Red Blood Count 4.34 M/mm3 (4.2-5.4); White Blood Count 5.2 K/mm3 (4.4-11.0)
[2024-02-21 09:33] LABS: Hematocrit 39.3 % (37-47); Mean Corp Hgb Conc 32.3 g/dL (32-36); Mean Corpuscular Hgb 29.3 pg (27.0-32.0); Mean Corpuscular Volume 90.6 fL (81-99); Mean Platelet Vol. 9.5 fl (6.2-12.0); Platelet Count 200 K/mm3 (150-450); RBC Distribution Width CV 12.6 % (11.6-14.6); RBC Distribution Width SD 41.1 fl (35.1-43.9)
[2024-02-21 09:34] LABS: Absolute Lymphocyte Count 1.86 X10^3/uL (0.83-4.51); Absolute Neutrophil Count 2.5 X10^3/uL (2.0-7.7); Basophil# 0.04 X10^3/uL; Basophil% 0.8 % (0-1); Eosinophil# 0.21 X10^3/uL; Lymphocyte # 1.86 X10^3/ul (0.83-4.51); Lymphocyte % 35.8 % (19-41); Monocyte# 0.55 X10^3/uL; Monocyte% 10.6 % (0-10); Neutrophil # 2.52 X10^3/uL (2.7-7.7); Neutrophil % 48.6 % (47-70)
[2024-02-21] MEDS: Tuberculin,Purif.prot.deriv. 50 TU/ML Vial 0.1 ML ID (11:24)
[2024-02-21] MEDS: Lactobacillis Acidophilus 1 CAP PO (11:25)
--- NOTE | 2024-02-21 11:25 | PHA.CONS_ITS ---
Documented by User: Kiara Karimi 02/21/24 11:59 TCU RX Drug Regimen Review Subjective/Objective Subjective/Objective: Subjective: TCU Admission. 63 YOF with recurrent left great toe recurrent ulcer, underwent left great toe arthroplasty ([facility]) 02/17/[address] Berry. Resident was admitted inpatient post op and after 3 days the patient became stable enough to be discharged to TCU. Admitted to TCU with debility for strengthening and rehabilitation. Objective: Allergies niacin Allergy (Verified 02/17/24 06:27) Itching venlafaxine Adverse Reaction (Severe, Verified 02/17/24 06:27) Vomiting metformin Adverse Reaction (Intermediate, Verified 02/17/24 06:27) Diarrhea cephalexin (From [employer]) Adverse Reaction (Verified 02/17/24 06:27) Other yeast infection Current Medications Generic Name Dose Route Start Last Admin Trade Name Freq PRN Reason Stop Dose Admin Acetaminophen 1,000 mg 02/20/24 21:31 Acetaminophen 500 Mg Tablet PO Q6H PRN PRN Pain Score 1-3 Atenolol 25 mg 02/21/24 10:00 02/21/24 09:07 Atenolol 25 Mg Tablet PO 25 mg DAILY [facility] Administration Protocol Atorvastatin Calcium 10 mg 02/20/24 22:00 02/20/24 22:15 Atorvastatin Calcium 10 Mg Tablet PO 10 mg QHS [facility] Administration Cholecalciferol 25 mcg 02/21/24 10:00 02/21/24 09:07 Cholecalciferol (Vit D3) 25 Mcg Tablet (1,000 Units) PO 25 mcg DAILY [facility] Administration Clonidine 0.1 mg 02/20/24 22:00 02/21/24 06:21 Clonidine Hcl 0.1 Mg Tablet PO 0.1 mg Q8 [facility] Administration Protocol Enoxaparin Sodium 40 mg 02/21/24 10:00 02/21/24 09:07 Enoxaparin 40 Mg/0.4 Ml Syringe SC 40 mg DAILY [facility] Administration Escitalopram Oxalate 20 mg 02/21/24 10:00 02/21/24 09:07 Escitalopram Oxalate 20 Mg Tablet PO 20 mg DAILY [facility] Administration Gabapentin 100 mg 02/20/24 22:00 02/21/24 06:21 Gabapentin 100 Mg Capsule PO 100 mg TID [facility] Administration Hydroxyzine Pamoate 50 mg 02/20/24 22:00 02/20/24 22:16 Hydroxyzine Vicki 25 Mg Capsule PO 50 mg QHS [facility] Administration Insulin Glargine 45 unit 02/21/24 21:00 Insulin Glargine-Yfgn 100 Unit/Ml Pen SC QPM [facility] Insulin Human Lispro 15 unit 02/21/24 11:45 Insulin Lispro 100 Unit/Ml Insuln.Pen SC TIDAC [facility] L-Arginine/L-Glutamine/Calcium HMB 1 packet 02/21/24 08:00 02/21/24 09:07 Medardo (Unflavored) Packet PO 1 packet BIDCM [facility] Administration Leucovorin Calcium 5 mg 02/24/24 10:00 Leucovorin 5 Mg Tablet PO Fr@1000 [facility] Levothyroxine Sodium 50 mcg 02/21/24 06:00 02/21/24 06:21 Levothyroxine 50 Mcg Tablet PO 50 mcg DAILY@0600 [facility] Administration Lisinopril 20 mg 02/21/24 10:00 02/21/24 09:08 Lisinopril 20 Mg Tablet PO 20 mg DAILY [facility] Administration Protocol Lorazepam 1 mg 02/20/24 22:00 02/21/24 09:08 Lorazepam 1 Mg Tablet PO 1 mg BID [facility] Administration Magnesium Citrate 300 ml 02/20/24 21:39 Magnesium Citrate 300 Ml PO DAILY PRN Constipation Methotrexate 20 mg 02/24/24 10:00 Methotrexate 2.5 Mg Tablet PO Fr@1000 [facility] Nystatin 1 applic 02/21/24 10:00 02/21/24 09:16 Nystatin Powder 15gm Bottle TOPICAL Not Given BID [facility] Protocol Oxycodone HCl 10 mg 02/20/24 21:31 02/21/24 09:08 Oxycodone 5 Mg Tablet PO 10 mg Q4H PRN PRN Administration Pain Score 4-10 or Pre PT/OT Pantoprazole Sodium 40 mg 02/21/24 10:00 02/21/24 09:08 Pantoprazole Sodium 40 Mg Tablet PO 40 mg DAILY [facility] Administration Senna/Docusate Sodium 2 tablet 02/20/24 22:00 02/21/24 09:07 Senna/Docusate Sodium 1 Tablet PO 2 tablet BID [facility] Administration Sodium Chloride 10 - 40 ml 02/20/24 20:25 0.9% Saline Lock 10 Ml Syringe IV UD PRN SALINE FLUSH Trazodone HCl 100 mg 02/20/24 22:00 02/20/24 22:16 Trazodone 100 Mg Tablet PO 100 mg QHS [facility] Administration Tuberculin PPD 0.1 ml 02/28/24 10:00 Tuberculin,Purif.Prot.Deriv. 50 Tu/Ml Vial ID 02/28/24 10:01 X1 ONE Problem List Fibromyalgia (Acute) Diabetic polyneuropathy (Acute) Essential (primary) hypertension (Acute) Type 2 diabetes mellitus with hyperglycemia (Acute) Hyperlipidemia (Acute) Insomnia (Acute) Gastroesophageal reflux disease (Acute) Anxiety (Acute) Depression (Acute) Debility (Acute) 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 (Chronic) Hypothyroidism (Acute) Vital Signs Temp Pulse Resp BP Pulse Ox O2 Del Method 97.8 F 74 18 117/48 L 100 Room Air 02/21/24 06:00 02/21/24 08:49 02/21/24 08:49 02/21/24 08:49 02/21/24 08:49 02/21/24 08:49 Oxygen Delivery Method Room Air Sodium 139 mmol/L (136-145) 02/21/24 05:23 Potassium 4.2 mmol/L (3.5-5.1) 02/21/24 05:23 Chloride 101 mmol/L (98-107) 02/21/24 05:23 Carbon Dioxide 33.0 mmol/L (21.0-32.0) H 02/21/24 05:23 Anion Gap 5 (5-15) 02/21/24 05:23 BUN 13 mg/dL (7-18) 02/21/24 05:23 Creatinine 0.75 mg/dL (0.55-1.02) 02/21/24 05:23 Est GFR (MDRD) Af Amer 99 mL/min (>60) 02/21/24 05:23 Est GFR (MDRD) Non-Af 82 mL/min (>60) 02/21/24 05:23 BUN/Creatinine Ratio 17.3 RATIO (10-20) 02/21/24 05:23 Glucose 237 mg/dL (74-106) H 02/21/24 05:23 Assessment/Plan: 1. Pain: acetaminophen 1000mg PO Q6 PRN pain (1-3) and oxycodone 10mg PO q4 PRN pain (4-10). Please continue to monitor for s/s of increased/decreased pain, falls (BEERs), constipation, PRN usage, excessive sedation, and agitation. Resident has not taken any acetaminophen and one dose of oxycodone (pain score of 7 in the foot). Pain seems controlled with this regimen. 2. Bowel: senna/docusate 2 tablets PO BID and magnesium citrate 300ml PO daily PRN constipation. Please continue to monitor for s/s of constipation/diarrhea. Last documented bowel movement on 02/20/24. 3. DVT prophylaxis: enoxaparin 40mg SC daily. Please continue to monitor creatine clearance (~138 ml/min on 02/20) and for s/s of bleeding/ anemia (Hgb 12.7 g/dL Hct 39.3% RBC 4.34 M/mm3 platelets 200,000). 4. GERD: pantoprazole 40mg daily. Please monitor for s/s of worsening GERD, diarrhea (BEERs medication) and headache. 5. Hypertension: atenolol 25mg PO daily, lisinopril 20mg PO daily, clonidine 0.1mg PO Q8. Please continue to monitor BP (117/48 on 02/20), HR (74 bpm on 02/20), arrhythmias, heart failure, potassium (last 4.2mmol/L), SCr (last 0.75mg/dL), cough, orthostatic hypotension, as well as s/s of confusion and dizziness. 6. Hyperlipidemia: atorvastatin 10mg PO QHS. Please continue to monitor lipid panel annually and for s/s of myopathy and LFTs (last 01/25/24). Please consider getting a lipid panel since one has not been done since 2020. Thanks. 7. Diabetes Mellitus II: insulin glargine 45 units SC QAPM, insulin lispro 15 units SC TIDAC. Please continue to monitor BG (236, 237, 232 mg/dL on 02/20) and for injection site reaction, hemoglobin A1c (last 8.8% 01/25/24), S/S hypoglycemia, hypertension (117/48 on 02/20), peripheral edema, and joint pain/stiffness. Doses were increased this morning. 8. MCTD: methotrexate 20mg PO Fridays and leucovorin 5mg PO Fridays. Please monitor for dehydration, diarrhea, thrombocytopenia (Plt count 200 K/mm3 on 02/20), and nausea. Please consider adding folic acid 1mg PO daily for methotrexate toxicity prophylaxis if clinically appropriate. Thanks. 9. Hypothyroidism: levothyroxine 50mcg PO daily. Please monitor TSH and for s/s of hypo/hyperthyroidism. Please consider drawing a TSH level as one has not been done this year (last 02/28/23). Thanks. 10. Vitamin D deficiency: cholecalciferol 25mcg PO daily. Please continue to monitor vitamin D 25-hydroxylase levels (WNL 01/24). 11. General wellness: Medardo 1 packet PO BIDCM, lactobacillus 1 capsule PO Daily. Please continue to monitor. Assessment/Plan for indications treated with psychotropic medications: 1. Depression: escitalopram 20mg PO daily. Please continue to monitor for suicidal thoughts (black box warning), s/s of better/worsening depression, ataxia, falls/fractures (BEERs medication), sodium (last 139mmol/L) and insomnia. Please refer to provider's note on GDR. 2. Anxiety: lorazepam 1mg PO BID. Please monitor for excessive sedation, cognitive impairment, dementia/delirium (BEERs medication), drowsiness, and falls (BEERs medication). Please refer to provider's note on GDR. 3. Insomnia: trazodone 100mg PO QHS and hydroxyzine 50mg PO QHS. Please monitor for suicidal ideations (black box warning), dizziness, morning drowsiness, vomiting, blurred vision, confusion, dry mouth, constipation, and agitation. Please refer to provider's note on GDR. 4. Neuropathic pain: gabapentin 100mg PO TID. Please monitor for renal function (CrCl 98.5 mL/min - adjusted for body weight of 116 kg on 02/19), excessive sedation, dizziness, drowsiness, fatigue, falls (BEERs), and s/s of worsening pain. GDR not appropriate for this medication because it is being used for neuropathic pain. Medical chart and medication regimen reviewed. The following medication irregularities or issues were identified: 1. Levothyroxine 50mcg PO daily. Please consider drawing a TSH level as one has not been done this year (last 02/28/23). Thanks. 2. Atorvastatin 10mg PO QHS. Please consider getting a lipid panel since one has not been done since 2020. Thanks. 3. Methotrexate 20mg PO Fridays. Please consider adding folic acid 1mg PO daily for methotrexate toxicity prophylaxis if clinically appropriate. Thanks. Date Date of Note:: 02/21/24 Documented by User: Dr. Chirag Moise MD 02/21/24 12:00 TCU RX Drug Regimen Review Provider Comments Provider responsibility Provider Comments to Recommendations by Pharmacy: Agree
[2024-02-21 11:27] LABS: Bedside Glucose 236 mg/dL (74-106)
[2024-02-21] MEDS: 0.9% Saline Lock 10 ML Syringe IV (11:28)
[2024-02-21] MEDS: Insulin Lispro 100 UNIT/ML INSULN.PEN 15 UNIT SC ×2 (12:02→18:01)
--- NOTE | 2024-02-21 12:07 | NURSING ---
Addendum entered by Cheryl Chowdhury 02/21/24 16:03: CARLA notifies that pt seems more tired and confused today compared to yesterday. Pt's in to visit today, agrees with SW. Pt denies further episodes of hearing children's voices. Continues with baseline A&Os. Pt has received PRN oxy x2 today for left foot pain. Pt states that she receives Dilaudid through an internal pain pump, [place] [address] Trejo. states pt's current vistaril/trazadone/ativan dosages are the same as home medications. Left written communication for Dr. Moise to review this evening. Original Note: USED [employer] reports pt complained of children talking outside room door. Spoke with pt, who states that she woke up and heard children talking outside room door, it was the same as what happened last evening. In report this morning, HS nurse stated that pt and were agitated d/t a child speaking loudly while visiting another pt next door. No children present on unit today. Pt continues A&Ox3 to self, situation, location. No other complaints at this time. Currently sitting up eating lunch.
[2024-02-21 12:39] VITALS: BMI 44.2
[2024-02-21 13:51] VITALS: BP 126/40; PULSE 60; RESP 18
--- NOTE | 2024-02-21 14:15 | NURSING ---
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 She has a smart phone she will use, family visits, watches tv, and reads. Staff will encourage group, remind her of weekly activities and respect her right to say no.
[2024-02-21 16:00] VITALS: TEMP 36.4
[2024-02-21 16:28] LABS: Bedside Glucose 232 mg/dL (74-106)
--- NOTE | 2024-02-21 17:34 | CASEMGMT ---
Addendum entered by Mauro Fuller 02/21/24 17:55: Patient was lethargic and drowsy during assessment. Patient informed SW that she is not normally as lethargic. Patient was tearful due to falling asleep during assessment. Patient and , Ed expressed concerns for medications. SW informed Physician, Dr. Moise. Original Note: Social Work- TCU Admit SW met with patient and , Ed at bedside to complete initial intake assessment. SW introduced self and role. Patient confirmed demographics and contact information. Prior to admission, patient was residing home with . Patient obtains assistance from and daughter in law for care. Patient confirmed code status as Full code. Patient informed SW that she does not have a advanced directive. SW inquired about completing POA and Living while on unit. Patient expressed interest in completing POA. SW provided Advanced Directive for patient to complete with SW. SW informed patient of their [facility] Medicare coverage and benefits; next review date 02/21. Patient's expressed concerns for the patient's non-weight bearing status. The patient informed SW that she has a history of obtaining rehabilitation services at [facility] and outpatient therapy via [facility]. Patient had home health care services in the past, but she could not remember provider. Patient's goal is to return home when appropriate. patient is open to recommendations for home health and outpatient therapy. SW will continue to follow to support discharge planning. ANASTASIA Jones
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
[2024-02-21] MEDS: Acetaminophen 500 MG Tablet 1000 MG PO (18:10)
[2024-02-21] MEDS: Insulin Glargine-YFGN 100 UNIT/ML Pen 45 UNIT SC (21:53)
[2024-02-21] MEDS: Nystatin Powder 15gm Bottle 1 APPLIC TOPICAL (21:54)
[2024-02-21] MEDS: hydrOXYzine PAM 25 MG Capsule 50 MG PO (21:54)
[2024-02-21] MEDS: traZODone 100 MG Tablet PO (21:54)
[2024-02-21] MEDS: Atorvastatin Calcium 10 MG Tablet PO (21:54)
[2024-02-21 22:00] VITALS: BP 138/75; PULSE 66; RESP 16
[2024-02-21 22:13] LABS: Bedside Glucose 326 mg/dL (74-106)
[2024-02-21] MEDS: oxyCODONE 5 MG Tablet PO (23:26)
[2024-02-22] MEDS: oxyCODONE 5 MG Tablet PO ×3 (06:11→20:56)
[2024-02-22] MEDS: Gabapentin 100 MG Capsule PO ×3 (06:11→20:57)
[2024-02-22] MEDS: Levothyroxine 50 MCG Tablet PO (06:12)
[2024-02-22] MEDS: cloNIDine HCl 0.1 MG Tablet PO ×3 (06:12→20:57)
[2024-02-22 06:13] LABS: Cholesterol 161 mg/dL (200); High Density Lipoprotein 31 mg/dL; Thyroid Stim Hormone (TSH) 2.64 uIU/mL (0.358-3.74); Triglycerides 251 mg/dL; Very Low Density Lipoprotein 50 mg/dL (5-40)
[2024-02-22] MEDS: 0.9% Saline Lock 10 ML Syringe IV (06:15)
[2024-02-22 06:58] LABS: Bedside Glucose 218 mg/dL (74-106)
[2024-02-22] MEDS: Lisinopril 20 MG Tablet PO (08:30)
[2024-02-22] MEDS: Juven (unflavored) Packet 1 PACKET PO (08:30)
[2024-02-22] MEDS: Lactobacillis Acidophilus 1 CAP PO (08:30)
[2024-02-22] MEDS: Escitalopram Oxalate 20 MG Tablet PO (08:30)
[2024-02-22] MEDS: Senna/Docusate Sodium 1 Tablet 2 TABLET PO (08:30)
[2024-02-22] MEDS: Folic Acid 1 MG Tablet PO (08:30)
[2024-02-22] MEDS: Atenolol 25 MG Tablet PO (08:30)
[2024-02-22] MEDS: LORazepam 1 MG Tablet PO ×2 (08:30→20:56)
[2024-02-22] MEDS: Cholecalciferol (VIT D3) 25 MCG TABLET (1,000 UNITS) PO (08:30)
[2024-02-22] MEDS: Insulin Lispro 100 UNIT/ML INSULN.PEN 17 UNIT SC ×3 (08:30→18:25)
[2024-02-22] MEDS: Insulin Glargine-YFGN 100 UNIT/ML Pen 25 UNIT SC ×2 (08:31→20:58)
[2024-02-22] MEDS: Enoxaparin 40 MG/0.4 ML Syringe SC (08:31)
[2024-02-22] MEDS: Pantoprazole Sodium 40 MG Tablet PO (08:32)
[2024-02-22] MEDS: Nystatin Powder 15gm Bottle 1 APPLIC TOPICAL ×2 (08:32→20:59)
[2024-02-22 08:40] VITALS: BP 116/52; PULSE 74
[2024-02-22 08:43] VITALS: O2SAT 93
[2024-02-22 11:10] LABS: Bedside Glucose 338 mg/dL (74-106)
[2024-02-22 13:23] VITALS: BP 119/52; PULSE 62; RESP 18; TEMP 36.1; O2SAT 92
[2024-02-22 16:41] LABS: Bedside Glucose 203 mg/dL (74-106)
[2024-02-22] MEDS: hydrOXYzine PAM 25 MG Capsule 50 MG PO (20:58)
[2024-02-22] MEDS: Atorvastatin Calcium 10 MG Tablet PO (20:59)
[2024-02-22] MEDS: traZODone 100 MG Tablet PO (20:59)
[2024-02-22 21:00] VITALS: BP 136/66; PULSE 63; RESP 18
[2024-02-22 21:21] LABS: Bedside Glucose 180 mg/dL (74-106)
[2024-02-22 22:00] VITALS: PULSE 63; RESP 18; O2SAT 96
[2024-02-23] MEDS: Gabapentin 100 MG Capsule PO ×3 (05:41→22:25)
[2024-02-23] MEDS: Levothyroxine 50 MCG Tablet PO (05:42)
[2024-02-23] MEDS: cloNIDine HCl 0.1 MG Tablet PO ×3 (05:42→22:26)
[2024-02-23 06:58] LABS: Bedside Glucose 226 mg/dL (74-106)
[2024-02-23 07:29] VITALS: O2SAT 96
[2024-02-23] MEDS: Insulin Lispro 100 UNIT/ML INSULN.PEN 20 UNIT SC ×3 (08:35→17:48)
[2024-02-23] MEDS: LORazepam 1 MG Tablet PO ×2 (08:36→22:25)
[2024-02-23] MEDS: Lactobacillis Acidophilus 1 CAP PO (09:26)
[2024-02-23] MEDS: Folic Acid 1 MG Tablet PO (09:26)
[2024-02-23] MEDS: Insulin Glargine-YFGN 100 UNIT/ML Pen 30 UNIT SC ×2 (09:26→22:27)
[2024-02-23] MEDS: Escitalopram Oxalate 20 MG Tablet PO (09:27)
[2024-02-23] MEDS: Enoxaparin 40 MG/0.4 ML Syringe SC (09:27)
[2024-02-23] MEDS: Pantoprazole Sodium 40 MG Tablet PO (09:27)
[2024-02-23] MEDS: Atenolol 25 MG Tablet PO (09:28)
[2024-02-23] MEDS: Cholecalciferol (VIT D3) 25 MCG TABLET (1,000 UNITS) PO (09:28)
[2024-02-23] MEDS: Nystatin Powder 15gm Bottle 1 APPLIC TOPICAL ×2 (09:28→22:32)
[2024-02-23] MEDS: Lisinopril 20 MG Tablet PO (09:28)
[2024-02-23] MEDS: oxyCODONE 5 MG Tablet PO ×2 (09:35→20:24)
[2024-02-23] MEDS: 0.9% Saline Lock 10 ML Syringe IV (09:37)
[2024-02-23 11:39] LABS: Bedside Glucose 194 mg/dL (74-106)
[2024-02-23 14:55] VITALS: BP 128/52; PULSE 65; RESP 16; TEMP 35.9; O2SAT 93
[2024-02-23] MEDS: Acetaminophen 500 MG Tablet 1000 MG PO (15:04)
--- NOTE | 2024-02-23 16:39 | NURSING ---
Glargine increased from 25-30 units and Lispro increased from 17-[address] Moise. Patient made aware.
--- NOTE | 2024-02-23 16:42 | NURSING ---
Dr. Berry in to see patient today and changed dressing. Reports to continue to keep dressing dry and intact and he will be in next week to see patient.
--- NOTE | 2024-02-23 16:47 | PCM.PROGNOTE ---
Subjective Subjective Patient was seen today for follow up on left foot. She is resting in chair with foot elevated. No complaints of f/c/n/v/sob/chest pain/calf pain. Objective Data Objective Data Vital Signs: Vital Signs Temp Pulse Resp BP Pulse Ox O2 Del Method 96.7 F L 65 16 128/52 H 93 Room Air 02/23/24 14:55 02/23/24 14:55 02/23/24 14:55 02/23/24 14:55 02/23/24 14:55 02/23/24 14:55 Oxygen Delivery Method Room Air Weight: 116.891 kg Body Mass Index (BMI) 44.2 Intake & Output: Intake and Output for Last 24 Hours 02/21/24 02/22/24 02/23/24 23:59 23:59 23:59 Intake Total 600 / 600 720 / 720 720 / 720 Balance 600 / 600 720 / 720 720 / 720 Lab / Micro Data 02/21/24 05:23 02/21/24 05:23 Labs: Laboratory Results - last 24 hr 02/22/24 20:54: POC Glucose 180 H 02/23/24 05:44: POC Glucose 226 H 02/23/24 11:13: POC Glucose 194 H Physical Exam Const alert, oriented x3 and no apparent distress Constitutional Narrative: Dressing left foot is clean, dry and intact with no strikethrough, dressing was removed - incision site well coapted, no dehiscense, there is some edema and ecchymosis c/w normal post op course, no cellulitis, no necrosis, no maloder, no drainage, no streaking, tissues are healthy and viable, CFT < 2 seconds to all toes, with vascular status intact, pin in place, no evidence of DVT bilateral - calf is soft and supple and no pain with calf squeeze bilateral. Assessment & Plan Assessment/Plan (1) Diabetes mellitus with diabetic polyneuropathy: (2) Hallux rigidus, left foot: PLAN: Plan s/p left 1st toe Lamar arthroplasty due to recurrent ulceration and limited range of motion - date of surgery 02/17/24 - healing appropriately at this time Keep dressing left foot clean, dry and intact - dressing was changed today - pin was cleansed with 70% Isoproply alcohol, applied gauze, kerlix and dedrick dressing No weightbearing left foot Keep left foot elevated DVT Prophylaxis: Lovenox 40mg subc daily
[2024-02-23 17:11] LABS: Bedside Glucose 247 mg/dL (74-106)
--- NOTE | 2024-02-23 18:32 | NURSING ---
Family brought in Leucovorin tonight and sent to pharmacy to be labeled for use on Tuesday.
[2024-02-23 22:09] LABS: Bedside Glucose 214 mg/dL (74-106)
[2024-02-23] MEDS: hydrOXYzine PAM 25 MG Capsule 50 MG PO (22:26)
[2024-02-23] MEDS: Atorvastatin Calcium 10 MG Tablet PO (22:26)
[2024-02-23] MEDS: traZODone 100 MG Tablet PO (22:27)
[2024-02-23 22:30] VITALS: BP 134/57; PULSE 55
[2024-02-24] MEDS: Levothyroxine 50 MCG Tablet PO (06:48)
[2024-02-24] MEDS: oxyCODONE 5 MG Tablet PO ×3 (06:48→18:24)
[2024-02-24] MEDS: cloNIDine HCl 0.1 MG Tablet PO ×3 (06:48→22:03)
[2024-02-24] MEDS: Gabapentin 100 MG Capsule PO ×3 (06:49→22:03)
[2024-02-24 06:50] LABS: Bedside Glucose 212 mg/dL (74-106)
[2024-02-24 07:00] VITALS: BP 129/70; PULSE 68
[2024-02-24] MEDS: Insulin Lispro 100 UNIT/ML INSULN.PEN 20 UNIT SC ×3 (08:11→17:55)
[2024-02-24] MEDS: LORazepam 1 MG Tablet PO ×2 (08:13→22:03)
[2024-02-24] MEDS: Folic Acid 1 MG Tablet PO (08:13)
[2024-02-24] MEDS: Lactobacillis Acidophilus 1 CAP PO (08:13)
[2024-02-24] MEDS: Insulin Glargine-YFGN 100 UNIT/ML Pen 30 UNIT SC ×2 (08:14→22:03)
[2024-02-24] MEDS: leucovorin 5 MG Tablet PO (08:15)
[2024-02-24] MEDS: Enoxaparin 40 MG/0.4 ML Syringe SC (08:15)
[2024-02-24] MEDS: Escitalopram Oxalate 20 MG Tablet PO (08:15)
[2024-02-24] MEDS: Methotrexate 2.5 MG Tablet 20 MG PO (08:16)
[2024-02-24] MEDS: Atenolol 25 MG Tablet PO (08:17)
[2024-02-24] MEDS: Pantoprazole Sodium 40 MG Tablet PO (08:17)
[2024-02-24] MEDS: Lisinopril 20 MG Tablet PO (08:18)
[2024-02-24] MEDS: Cholecalciferol (VIT D3) 25 MCG TABLET (1,000 UNITS) PO (08:18)
[2024-02-24 11:20] LABS: Bedside Glucose 129 mg/dL (74-106)
[2024-02-24] MEDS: Nystatin Powder 15gm Bottle 1 APPLIC TOPICAL ×2 (12:08→22:04)
[2024-02-24] MEDS: 0.9% Saline Lock 10 ML Syringe IV (13:50)
--- NOTE | 2024-02-24 15:04 | CASEMGMT ---
Social Work SW spoke with patient regarding DPOA packet. Patient informed SW that she will contact her to bring POA paperwork to work on this weekend. SW will follow up with patient on Tuesday regarding POA paperwork. ANASTASIA Jones
[2024-02-24 15:31] VITALS: BP 107/62; PULSE 86; RESP 14; TEMP 35.8
--- NOTE | 2024-02-24 16:25 | NURSING ---
Aide reports patient self transferred in bathroom to w/c. Patient made aware to wait for assistance before transferring and she reports understanding.
[2024-02-24 16:37] LABS: Bedside Glucose 132 mg/dL (74-106)
--- NOTE | 2024-02-24 16:52 | CASEMGMT ---
Social Work SW met with patient at bedside to complete MDS. BIM () PhQ9 (06/24) Patient PhQ-9 Score indicates moderately depressed. Patient informed SW that prior to admission and early in admission, she felt like she lost interest in doing things, felt depressed due to missing home and dogs. Patient informed SW that after her medications were adjusted she felt an improvement in her mood. SW and patient explored positive responses. Patient informed SW that she has created goals to combat depression. Patient informed SW that she just met with her longtime friend, Eli and reconnected after some time. Patient had granddaughter bring her dog for a visit. The patient has plans to play cards with her other friend. Patient informed SW that she wants to be more engaged with crafting and activities while on TCU. Patient informed SW that she is proud to see her diabetic glocuse number range in 120s-130s. Patient stated that at home she has numbers ranging in the 230s+. Patient attributes changes to adjustments to medications, better medication management, and diet while on TCU. Patient informed SW that she would like to take menu home to adjust eating at home. SW discussed consulting aeroplane pilot to discuss managing diet at home. SW provided patient with additional resources for meal delivery services. Patient informed SW that she will be attending her mothers 90th birthday, which she will be ordering the cake. Patient has multiple goals to look forward to improving mood and lifestyle. SW will continue to follow to provide support. ANASTASIA Jones
[2024-02-24 21:34] LABS: Bedside Glucose 220 mg/dL (74-106)
[2024-02-24] MEDS: hydrOXYzine PAM 25 MG Capsule 50 MG PO (22:02)
[2024-02-24] MEDS: traZODone 100 MG Tablet PO (22:03)
[2024-02-24] MEDS: Atorvastatin Calcium 10 MG Tablet PO (22:03)
[2024-02-25] MEDS: cloNIDine HCl 0.1 MG Tablet PO ×3 (06:20→22:06)
[2024-02-25] MEDS: Levothyroxine 50 MCG Tablet PO (06:20)
[2024-02-25] MEDS: Gabapentin 100 MG Capsule PO ×3 (06:20→22:07)
[2024-02-25] MEDS: Acetaminophen 500 MG Tablet 1000 MG PO ×2 (06:20→22:07)
[2024-02-25] MEDS: Insulin Lispro 100 UNIT/ML INSULN.PEN 20 UNIT SC ×3 (06:21→17:52)
[2024-02-25 06:45] LABS: Bedside Glucose 197 mg/dL (74-106)
[2024-02-25 07:15] VITALS: O2SAT 93
[2024-02-25] MEDS: Lactobacillis Acidophilus 1 CAP PO (07:58)
[2024-02-25] MEDS: Folic Acid 1 MG Tablet PO (07:58)
[2024-02-25 10:21] LABS: Bedside Glucose 235 mg/dL (74-106)
[2024-02-25] MEDS: LORazepam 1 MG Tablet PO ×2 (10:31→22:05)
[2024-02-25] MEDS: Cholecalciferol (VIT D3) 25 MCG TABLET (1,000 UNITS) PO (10:31)
[2024-02-25] MEDS: Insulin Glargine-YFGN 100 UNIT/ML Pen 30 UNIT SC ×2 (10:32→22:08)
[2024-02-25] MEDS: Atenolol 25 MG Tablet PO (10:32)
[2024-02-25] MEDS: Lisinopril 20 MG Tablet PO (10:32)
[2024-02-25] MEDS: Pantoprazole Sodium 40 MG Tablet PO (10:32)
[2024-02-25] MEDS: Escitalopram Oxalate 20 MG Tablet PO (10:32)
[2024-02-25] MEDS: Enoxaparin 40 MG/0.4 ML Syringe SC (10:33)
[2024-02-25] MEDS: Nystatin Powder 15gm Bottle 1 APPLIC TOPICAL ×2 (10:38→22:06)
[2024-02-25] MEDS: oxyCODONE 5 MG Tablet PO ×2 (11:37→22:07)
[2024-02-25 15:14] VITALS: BP 116/65; PULSE 60; RESP 16; TEMP 35.9; O2SAT 96
[2024-02-25 16:19] LABS: Bedside Glucose 143 mg/dL (74-106)
[2024-02-25 18:20] VITALS: PULSE 60; RESP 16; O2SAT 96
[2024-02-25 22:04] VITALS: BP 154/76; PULSE 65; RESP 18
[2024-02-25] MEDS: traZODone 100 MG Tablet PO (22:06)
[2024-02-25] MEDS: Atorvastatin Calcium 10 MG Tablet PO (22:06)
[2024-02-25] MEDS: hydrOXYzine PAM 25 MG Capsule 50 MG PO (22:07)
[2024-02-25 23:03] LABS: Bedside Glucose 190 mg/dL (74-106)
[2024-02-26] VITALS (7 sets, daily range): BP systolic 104–122; BP diastolic 39–89; PULSE 57–73; RESP 16; TEMP 36.3; O2SAT 93–94
[2024-02-26] MEDS: Acetaminophen 500 MG Tablet 1000 MG PO ×2 (05:58→21:40)
[2024-02-26] MEDS: oxyCODONE 5 MG Tablet PO ×2 (05:58→21:39)
[2024-02-26] MEDS: cloNIDine HCl 0.1 MG Tablet PO ×3 (05:58→21:39)
[2024-02-26] MEDS: Levothyroxine 50 MCG Tablet PO (05:58)
[2024-02-26] MEDS: Gabapentin 100 MG Capsule PO ×3 (05:58→21:39)
[2024-02-26 07:14] LABS: Bedside Glucose 176 mg/dL (74-106)
[2024-02-26] MEDS: Insulin Lispro 100 UNIT/ML INSULN.PEN 20 UNIT SC ×3 (08:33→17:37)
[2024-02-26] MEDS: Lactobacillis Acidophilus 1 CAP PO (08:34)
[2024-02-26] MEDS: Folic Acid 1 MG Tablet PO (08:34)
[2024-02-26] MEDS: Insulin Glargine-YFGN 100 UNIT/ML Pen 30 UNIT SC ×2 (10:17→21:15)
[2024-02-26] MEDS: Enoxaparin 40 MG/0.4 ML Syringe SC (10:18)
[2024-02-26] MEDS: LORazepam 1 MG Tablet PO ×2 (10:18→21:39)
[2024-02-26] MEDS: Lisinopril 20 MG Tablet PO (10:19)
[2024-02-26] MEDS: Cholecalciferol (VIT D3) 25 MCG TABLET (1,000 UNITS) PO (10:19)
[2024-02-26] MEDS: Atenolol 25 MG Tablet PO (10:19)
[2024-02-26] MEDS: Pantoprazole Sodium 40 MG Tablet PO (10:19)
[2024-02-26] MEDS: Escitalopram Oxalate 20 MG Tablet PO (10:19)
[2024-02-26] MEDS: Nystatin Powder 15gm Bottle 1 APPLIC TOPICAL ×2 (10:20→21:17)
[2024-02-26 11:25] LABS: Bedside Glucose 248 mg/dL (74-106)
[2024-02-26 16:45] LABS: Bedside Glucose 142 mg/dL (74-106)
--- NOTE | 2024-02-26 20:59 | NURSING ---
Spouse informed nursing staff about a rash to resident's left leg. Assessed rash in resident's room w/ spouse present. Onset of rash was early this am. Bed linens were changed and mattress was cleaned w/ a PDI wipe. Rash is isolated to the left posterior lower leg superior to BOBBY wrap and extended slightly above the posterior knee. There is no pattern to the rash. No blisters noted. Lesions to the inferior aspect of the rash feel inflamed. No redness, streaks, or warmth noted. Lesions are dry and appear partially scabbed. Resident denies any blistering. All three of her dogs have been brought in per spouse at different times since yesterday. Resident declines any encounter or knowledge of exposure to bedbugs. Phone call placed to Dr. Moise to update. New orders received and read back for Medrol dose pack, Vistaril 50 mg po every 6 hours as needed- in addition to scheduled dose of 50 mg at hs, and Hydrocortisone cream 2.5% BID PRN itch. Asked Dr. Moise to assess rash tomorrow am on unit and is agreeable. Resident updated on new orders received and expresses appreciation. Will continue to monitor.
[2024-02-26] MEDS: hydrOXYzine PAM 25 MG Capsule 50 MG PO (21:09)
[2024-02-26] MEDS: Atorvastatin Calcium 10 MG Tablet PO (21:13)
[2024-02-26] MEDS: traZODone 100 MG Tablet PO (21:13)
[2024-02-26] MEDS: Hydrocortisone 2.5% Crm 1 APPLIC TOPICAL (21:15)
[2024-02-26 21:31] LABS: Bedside Glucose 142 mg/dL (74-106)
[2024-02-26] MEDS: MethylPREDNISolone DosePak 4 MG BOX PO (21:40)
[2024-02-27 04:57] VITALS: BP 121/51; PULSE 64
[2024-02-27] MEDS: Gabapentin 100 MG Capsule PO ×3 (04:59→22:19)
[2024-02-27] MEDS: cloNIDine HCl 0.1 MG Tablet PO ×3 (04:59→22:20)
[2024-02-27] MEDS: oxyCODONE 5 MG Tablet PO ×3 (04:59→22:19)
[2024-02-27] MEDS: Acetaminophen 500 MG Tablet 1000 MG PO ×3 (04:59→22:23)
[2024-02-27] MEDS: Levothyroxine 50 MCG Tablet PO (05:00)
[2024-02-27] MEDS: Hydrocortisone 2.5% Crm 1 APPLIC TOPICAL (06:26)
[2024-02-27 06:51] LABS: Bedside Glucose 359 mg/dL (74-106)
[2024-02-27] MEDS: Insulin Lispro 100 UNIT/ML INSULN.PEN 20 UNIT SC (06:59)
[2024-02-27 07:58] VITALS: O2SAT 95
--- NOTE | 2024-02-27 08:58 | NURSING ---
Defensive Driving Instructor Note; MDS for 02/27/2024 Complete
[2024-02-27] MEDS: Escitalopram Oxalate 20 MG Tablet PO (09:21)
[2024-02-27] MEDS: Lisinopril 20 MG Tablet PO (09:21)
[2024-02-27] MEDS: Lactobacillis Acidophilus 1 CAP PO (09:21)
[2024-02-27] MEDS: MethylPREDNISolone DosePak 4 MG BOX PO ×4 (09:21→22:22)
[2024-02-27] MEDS: LORazepam 1 MG Tablet PO ×2 (09:21→22:19)
[2024-02-27] MEDS: Atenolol 25 MG Tablet PO (09:21)
[2024-02-27] MEDS: Enoxaparin 40 MG/0.4 ML Syringe SC (09:21)
[2024-02-27] MEDS: Cholecalciferol (VIT D3) 25 MCG TABLET (1,000 UNITS) PO (09:21)
[2024-02-27] MEDS: Folic Acid 1 MG Tablet PO (09:21)
[2024-02-27] MEDS: Pantoprazole Sodium 40 MG Tablet PO (09:21)
[2024-02-27] MEDS: Insulin Glargine-YFGN 100 UNIT/ML Pen 40 UNIT SC ×2 (09:22→22:20)
[2024-02-27] MEDS: Nystatin Powder 15gm Bottle 1 APPLIC TOPICAL ×2 (09:22→22:22)
--- NOTE | 2024-02-27 09:22 | NURSING ---
Offered covid vaccine, VIS provided. Patient refuses at this time.
[2024-02-27 09:29] VITALS: BP 132/63; RESP 87
[2024-02-27 11:17] LABS: Bedside Glucose 328 mg/dL (74-106)
[2024-02-27] MEDS: Insulin Lispro 100 UNIT/ML INSULN.PEN 26 UNIT SC ×2 (11:48→17:36)
[2024-02-27 13:41] VITALS: BP 111/63; PULSE 66; RESP 16; TEMP 36.2; O2SAT 93
[2024-02-27 17:06] LABS: Bedside Glucose 306 mg/dL (74-106)
[2024-02-27 21:41] LABS: Bedside Glucose 337 mg/dL (74-106)
[2024-02-27] MEDS: traZODone 100 MG Tablet PO (22:20)
[2024-02-27] MEDS: Atorvastatin Calcium 10 MG Tablet PO (22:20)
[2024-02-27] MEDS: hydrOXYzine PAM 25 MG Capsule 50 MG PO (22:21)
[2024-02-27 22:25] VITALS: RESP 16
[2024-02-27 22:31] VITALS: BP 100/70; PULSE 64
[2024-02-28] MEDS: cloNIDine HCl 0.1 MG Tablet PO ×3 (05:00→22:05)
[2024-02-28] MEDS: Gabapentin 100 MG Capsule PO ×3 (05:00→22:00)
[2024-02-28] MEDS: Levothyroxine 50 MCG Tablet PO (05:00)
[2024-02-28 05:02] VITALS: BP 156/77; PULSE 63
[2024-02-28 05:12] VITALS: PULSE 63; RESP 16
[2024-02-28 05:45] LABS: Absolute Lymphocyte Count 1.85 X10^3/uL (0.83-4.51); Absolute Neutrophil Count 5.3 X10^3/uL (2.0-7.7); Basophil# 0.04 X10^3/uL; Basophil% 0.5 % (0-1); Eosinophil# 0.01 X10^3/uL; Eosinophils% 0.1 % (0-5); Hematocrit 40.4 % (37-47); Hemoglobin 12.9 g/dL (12.0-15.0); Lymphocyte # 1.85 X10^3/ul (0.83-4.51); Lymphocyte % 24.4 % (19-41); Mean Corp Hgb Conc 31.9 g/dL (32-36); Mean Corpuscular Hgb 28.5 pg (27.0-32.0); Mean Corpuscular Volume 89.2 fL (81-99); Mean Platelet Vol. 9.8 fl (6.2-12.0); Monocyte# 0.32 X10^3/uL; Monocyte% 4.2 % (0-10); NRBC Flagged by Analyzer 0 % (0-5); Neutrophil # 5.32 X10^3/uL (2.7-7.7); Neutrophil % 70.1 % (47-70); Platelet Count 228 K/mm3 (150-450); RBC Distribution Width CV 12.4 % (11.6-14.6); RBC Distribution Width SD 40.6 fl (35.1-43.9); Red Blood Count 4.53 M/mm3 (4.2-5.4); White Blood Count 7.6 K/mm3 (4.4-11.0)
[2024-02-28 06:07] LABS: Anion Gap 7 (5-15); BUN 16 mg/dL (7-18); BUN/Creat Ratio 20.1 RATIO (10-20); Calcium,Total 9.2 mg/dL (8.5-10.1); Chloride 104 mmol/L (98-107); EST Glomerular Filtration Rate 77 mL/min (>60); Est Glom Filt Rate - Afr Amer 93 mL/min (>60); Estimated Creatinine Clearance 88.07 ml/min; Glucose 301 mg/dL (74-106); Potassium 4.2 mmol/L (3.5-5.1); Sodium Level 139 mmol/L (136-145)
[2024-02-28 06:38] LABS: Bedside Glucose 262 mg/dL (74-106)
[2024-02-28] MEDS: MethylPREDNISolone DosePak 4 MG BOX PO ×4 (08:26→22:03)
[2024-02-28] MEDS: oxyCODONE 5 MG Tablet PO ×2 (08:27→21:59)
[2024-02-28] MEDS: Lactobacillis Acidophilus 1 CAP PO (08:27)
[2024-02-28] MEDS: Lisinopril 20 MG Tablet PO (08:28)
[2024-02-28] MEDS: Escitalopram Oxalate 20 MG Tablet PO (08:28)
[2024-02-28] MEDS: Cholecalciferol (VIT D3) 25 MCG TABLET (1,000 UNITS) PO (08:28)
[2024-02-28] MEDS: Atenolol 25 MG Tablet PO (08:28)
[2024-02-28] MEDS: Insulin Glargine-YFGN 100 UNIT/ML Pen 40 UNIT SC ×2 (08:29→22:01)
[2024-02-28] MEDS: Folic Acid 1 MG Tablet PO (08:29)
[2024-02-28] MEDS: Insulin Lispro 100 UNIT/ML INSULN.PEN 26 UNIT SC ×3 (08:29→17:44)
[2024-02-28] MEDS: LORazepam 1 MG Tablet PO ×2 (08:29→21:59)
[2024-02-28] MEDS: Pantoprazole Sodium 40 MG Tablet PO (08:30)
[2024-02-28] MEDS: Enoxaparin 40 MG/0.4 ML Syringe SC (08:30)
[2024-02-28] MEDS: Nystatin Powder 15gm Bottle 1 APPLIC TOPICAL ×2 (08:30→22:07)
[2024-02-28] MEDS: Tuberculin,Purif.prot.deriv. 50 TU/ML Vial 0.1 ML ID (10:29)
[2024-02-28 11:43] LABS: Bedside Glucose 235 mg/dL (74-106)
[2024-02-28 12:00] VITALS: BMI 42.8
[2024-02-28 13:50] VITALS: BP 126/64; PULSE 60
--- NOTE | 2024-02-28 15:07 | NURSING ---
Pt was sitting in lobby and needed to grab her art box. She wheeled herself in her wheelchair back to room and hit her right hand between the door and the wheelchair. Hematoma on her right hand was noted and applied Ice.
[2024-02-28 15:10] VITALS: BP 112/57; PULSE 60; RESP 14; TEMP 36.2
--- NOTE | 2024-02-28 15:22 | CASEMGMT ---
Social Work SW met with pt. Introduced self and role. Discussed DC planning. Pt states she just met with ortho and he is recommending another week of NWB. Pt would prefer to remain in TCU for that duration. Pt states her house is not yet ready for her return home sooner. SW agreed and will revisit DC planning next week. Randa Rosales, HOSPITAL TELEVISION RENTAL CLERK BUSINESS INTELLIGENCE ANALYST
[2024-02-28] MEDS: Acetaminophen 500 MG Tablet 1000 MG PO ×2 (16:08→22:09)
[2024-02-28 16:29] LABS: Bedside Glucose 250 mg/dL (74-106)
--- NOTE | 2024-02-28 18:31 | PN_ITS ---
Subjective Subjective Patient was seen for follow up on left foot, she is resting in chair with foot elevated, no complaints of f/c/n/v or calf pain. Pain appears controlled at this time. She needs a lot of help to stay off foot. Objective Data Objective Data Vital Signs: Vital Signs Temp Pulse Resp BP Pulse Ox O2 Del Method O2 Flow Rate 97.8 F 61 18 142/66 H 95 Room Air 2 03/02/24 08:00 03/02/24 14:30 03/02/24 08:00 03/02/24 14:30 03/02/24 08:00 03/02/24 10:00 02/29/24 19:40 Oxygen Flow Rate (L/min) 2 Oxygen Delivery Method Room Air Weight: 113.307 kg Body Mass Index (BMI) 42.8 Intake & Output: Intake and Output for Last 24 Hours 02/29/24 03/01/24 03/02/24 23:59 23:59 23:59 Intake Total 720 / 720 920 / 920 820 / 820 Balance 720 / 720 920 / 920 820 / 820 Lab / Micro Data 02/28/24 05:28 02/28/24 05:28 Labs: Laboratory Results - last 24 hr 03/01/24 21:11: POC Glucose 242 H 03/02/24 05:34: POC Glucose 186 H 03/02/24 11:08: POC Glucose 130 H 03/02/24 16:04: POC Glucose 133 H Micro: Microbiology 02/24/24 07:00 Nasal Secretion SARS-CoV-2 Antigen (Rapid) - Final Physical Exam Const alert, oriented x3 and no apparent distress Constitutional Narrative: Dressing left foot is clean, dry and intact with no strikethrough, dressing was removed - incision site well coapted and healed, no dehiscense, there is some edema and ecchymosis c/w normal post op course but significantly improved, no cellulitis, no necrosis, no maloder, no drainage, no streaking, tissues are healthy and viable, CFT < 2 seconds to all toes, with vascular status intact, pin in place, no evidence of DVT bilateral - calf is soft and supple and no pain with calf squeeze bilateral. Assessment & Plan Assessment/Plan (1) Diabetes mellitus with diabetic polyneuropathy: (2) Hallux rigidus, left foot: PLAN: Plan s/p left 1st toe Lamar arthroplasty due to recurrent ulceration and limited range of motion - date of surgery 02/17/24 - healing appropriately at this time Keep dressing left foot clean, dry and intact - dressing was changed today - pin was cleansed with 70% Isoproply alcohol, applied gauze, kerlix and dedrick dressing No weightbearing left foot - it is medically necessary for her to remain strict nonweightbearing to the left foot, there is great concern about her going home, she states she does not have the appropriate support and help to stay off foot at home. Therefore I advise she remain in senior living facility until 4 weeks post op, if she puts weight on foot prior to this there is great concern there will be complications. Keep left foot elevated DVT Prophylaxis: Lovenox 40mg subc daily
[2024-02-28 21:42] LABS: Bedside Glucose 236 mg/dL (74-106)
[2024-02-28] MEDS: Atorvastatin Calcium 10 MG Tablet PO (22:06)
[2024-02-28] MEDS: traZODone 100 MG Tablet PO (22:06)
[2024-02-28] MEDS: hydrOXYzine PAM 25 MG Capsule 50 MG PO (22:07)
[2024-02-28 22:13] VITALS: BP 144/78; PULSE 52
[2024-02-29] MEDS: Gabapentin 100 MG Capsule PO ×3 (05:55→21:35)
[2024-02-29] MEDS: cloNIDine HCl 0.1 MG Tablet PO ×3 (05:55→21:38)
[2024-02-29] MEDS: Levothyroxine 50 MCG Tablet PO (05:55)
[2024-02-29 05:59] VITALS: BP 162/73; PULSE 63
[2024-02-29 06:32] LABS: Bedside Glucose 213 mg/dL (74-106)
--- NOTE | 2024-02-29 08:22 | MDS.RN ---
Information for the MDS was obtained from review of the clinical record, interview of resident, staff, and direct observation of resident?s care.
[2024-02-29] MEDS: Insulin Glargine-YFGN 100 UNIT/ML Pen 40 UNIT SC ×2 (09:02→22:46)
[2024-02-29] MEDS: Insulin Lispro 100 UNIT/ML INSULN.PEN 26 UNIT SC (09:02)
[2024-02-29] MEDS: Folic Acid 1 MG Tablet PO (09:03)
[2024-02-29] MEDS: LORazepam 1 MG Tablet PO ×2 (09:03→21:36)
[2024-02-29] MEDS: Cholecalciferol (VIT D3) 25 MCG TABLET (1,000 UNITS) PO (09:03)
[2024-02-29] MEDS: Enoxaparin 40 MG/0.4 ML Syringe SC (09:03)
[2024-02-29] MEDS: MethylPREDNISolone DosePak 4 MG BOX PO ×3 (09:03→21:40)
[2024-02-29] MEDS: Escitalopram Oxalate 20 MG Tablet PO (09:03)
[2024-02-29] MEDS: Atenolol 25 MG Tablet PO (09:03)
[2024-02-29] MEDS: Nystatin Powder 15gm Bottle 1 APPLIC TOPICAL (09:03)
[2024-02-29] MEDS: Pantoprazole Sodium 40 MG Tablet PO (09:03)
[2024-02-29] MEDS: Lactobacillis Acidophilus 1 CAP PO (09:03)
[2024-02-29] MEDS: Lisinopril 20 MG Tablet PO (09:03)
[2024-02-29 09:11] VITALS: BP 133/61; PULSE 76
--- NOTE | 2024-02-29 09:43 | CASEMGMT ---
Social Work IDT met with patient and for care plan meeting. Discussed patient's progress in PT/OT/SN. SW educated to [facility] insurance with NRD 02/28, EDC 03/08. Discussed pt needing w/c and knee sling for walker. SW educated to insurance coverage and pt agreed to w/c through insurance and pt will purchase knee sling. SW will continue to follow for DC planning. Randa Rosales, METAL DEALER INJECTION MAINTENANCE TECHNICIAN
--- NOTE | 2024-02-29 10:51 | NURSING ---
Dr. Berry in to see patient yesterday, 02/28/24. Changed dressing to foot, orders to continue to leave dressing dry and intact.
[2024-02-29 11:14] LABS: Bedside Glucose 119 mg/dL (74-106)
[2024-02-29 12:29] VITALS: BP 112/71; PULSE 55; RESP 14; TEMP 36.1; O2SAT 93
[2024-02-29] MEDS: Insulin Lispro 100 UNIT/ML INSULN.PEN 13 UNIT SC ×2 (12:29→17:21)
[2024-02-29 14:45] VITALS: BP 117/64; PULSE 59
[2024-02-29 16:26] LABS: Bedside Glucose 257 mg/dL (74-106)
[2024-02-29] MEDS: oxyCODONE 5 MG Tablet PO ×2 (17:20→21:35)
[2024-02-29] MEDS: Insulin Lispro 100 UNIT/ML INSULN.PEN SC (17:21)
--- NOTE | 2024-02-29 18:34 | CASEMGMT ---
Addendum entered by Randa Rosales 03/02/24 09:41: SW phoned referral to [facility] and sent w/c referral to [facility] via [facility]. Original Note: Social Work Received insurance LCD 03/03, DC 03/04. SW spoke with patient and and both stating the home is not ready for pt to DC and Dr. Berry recommending another week of TCU stay with NWB, and will revisit pt 03/06. SW explained appeal rights and [facility] medical records closed for 03/01, and will send records to [facility] 03/02. Pt expressed understanding and is electing to appeal. CARLA confirmed DC plans at [facility], whom pt used prior, and w/c w/[facility]. SW to coordinate services. Referrals will be made on next business day. Will continue to follow. Plan: DC home with 03/04, pending appeal, [facility] PT/OT/SN, w/c w/ELR.
[2024-02-29 21:19] LABS: Bedside Glucose 160 mg/dL (74-106)
[2024-02-29] MEDS: traZODone 100 MG Tablet PO (21:36)
[2024-02-29] MEDS: hydrOXYzine PAM 25 MG Capsule 50 MG PO (21:36)
[2024-02-29] MEDS: Atorvastatin Calcium 10 MG Tablet PO (21:37)
[2024-03-01 03:18] VITALS: BP 133/59; PULSE 59
[2024-03-01 06:16] LABS: Bedside Glucose 201 mg/dL (74-106)
[2024-03-01] MEDS: Gabapentin 100 MG Capsule PO ×3 (06:32→21:25)
[2024-03-01] MEDS: Levothyroxine 50 MCG Tablet PO (06:32)
[2024-03-01] MEDS: Acetaminophen 500 MG Tablet 1000 MG PO ×2 (06:32→22:46)
[2024-03-01] MEDS: cloNIDine HCl 0.1 MG Tablet PO ×3 (06:33→21:26)
[2024-03-01] MEDS: MethylPREDNISolone DosePak 4 MG BOX PO ×2 (09:23→21:26)
[2024-03-01] MEDS: Enoxaparin 40 MG/0.4 ML Syringe SC (09:23)
[2024-03-01] MEDS: Pantoprazole Sodium 40 MG Tablet PO (09:23)
[2024-03-01] MEDS: Escitalopram Oxalate 20 MG Tablet PO (09:24)
[2024-03-01] MEDS: Atenolol 25 MG Tablet PO (09:24)
[2024-03-01] MEDS: Cholecalciferol (VIT D3) 25 MCG TABLET (1,000 UNITS) PO (09:24)
[2024-03-01] MEDS: Lactobacillis Acidophilus 1 CAP PO (09:24)
[2024-03-01] MEDS: Lisinopril 20 MG Tablet PO (09:24)
[2024-03-01] MEDS: Folic Acid 1 MG Tablet PO (09:24)
[2024-03-01] MEDS: Insulin Glargine-YFGN 100 UNIT/ML Pen 40 UNIT SC ×2 (09:25→21:23)
[2024-03-01] MEDS: Insulin Lispro 100 UNIT/ML INSULN.PEN 13 UNIT SC (09:27)
[2024-03-01] MEDS: Insulin Lispro 100 UNIT/ML INSULN.PEN SC (09:28)
[2024-03-01] MEDS: Nystatin Powder 15gm Bottle 1 APPLIC TOPICAL ×2 (09:33→21:26)
[2024-03-01] MEDS: LORazepam 1 MG Tablet PO ×2 (09:37→21:25)
[2024-03-01] MEDS: oxyCODONE 5 MG Tablet PO ×3 (09:37→22:47)
[2024-03-01 11:50] LABS: Bedside Glucose 137 mg/dL (74-106)
[2024-03-01] MEDS: Insulin Lispro 100 UNIT/ML INSULN.PEN 16 UNIT SC (12:17)
--- NOTE | 2024-03-01 12:21 | CASEMGMT ---
Social Work SW spoke with pt. Pt filed appeal. HIM notified and completed medical records request this date. Will await appeal outcome. JESSY HoodW
[2024-03-01 16:00] VITALS: BP 131/68; PULSE 58; RESP 19; TEMP 36.5; O2SAT 95
[2024-03-01 16:45] LABS: Bedside Glucose 127 mg/dL (74-106)
[2024-03-01] MEDS: Insulin Lispro 100 UNIT/ML INSULN.PEN 10 UNIT SC (17:26)
[2024-03-01] MEDS: hydrOXYzine PAM 25 MG Capsule 50 MG PO (21:25)
[2024-03-01] MEDS: Atorvastatin Calcium 10 MG Tablet PO (21:26)
[2024-03-01] MEDS: traZODone 100 MG Tablet PO (21:26)
[2024-03-01 21:34] VITALS: BP 144/68; PULSE 54
[2024-03-01 21:35] LABS: Bedside Glucose 242 mg/dL (74-106)
[2024-03-02 05:54] LABS: Bedside Glucose 186 mg/dL (74-106)
[2024-03-02] MEDS: cloNIDine HCl 0.1 MG Tablet PO ×3 (06:53→21:31)
[2024-03-02] MEDS: Levothyroxine 50 MCG Tablet PO (06:53)
[2024-03-02] MEDS: Gabapentin 100 MG Capsule PO ×3 (06:53→21:30)
[2024-03-02 06:56] VITALS: BP 141/72; PULSE 59
[2024-03-02 08:00] VITALS: BP 120/66; PULSE 62; RESP 18; TEMP 36.6; O2SAT 95
[2024-03-02] MEDS: Insulin Lispro 100 UNIT/ML INSULN.PEN SC (08:06)
[2024-03-02] MEDS: Lisinopril 20 MG Tablet PO (08:07)
[2024-03-02] MEDS: Cholecalciferol (VIT D3) 25 MCG TABLET (1,000 UNITS) PO (08:07)
[2024-03-02] MEDS: Insulin Lispro 100 UNIT/ML INSULN.PEN 10 UNIT SC (08:07)
[2024-03-02] MEDS: Escitalopram Oxalate 20 MG Tablet PO (08:07)
[2024-03-02] MEDS: Folic Acid 1 MG Tablet PO (08:07)
[2024-03-02] MEDS: Pantoprazole Sodium 40 MG Tablet PO (08:08)
[2024-03-02] MEDS: Lactobacillis Acidophilus 1 CAP PO (08:08)
[2024-03-02] MEDS: Atenolol 25 MG Tablet PO (08:08)
[2024-03-02] MEDS: Enoxaparin 40 MG/0.4 ML Syringe SC (08:08)
[2024-03-02] MEDS: Insulin Glargine-YFGN 100 UNIT/ML Pen 40 UNIT SC ×2 (08:09→21:32)
[2024-03-02] MEDS: MethylPREDNISolone DosePak 4 MG BOX PO (08:10)
[2024-03-02] MEDS: Methotrexate 2.5 MG Tablet 20 MG PO (08:10)
[2024-03-02] MEDS: Nystatin Powder 15gm Bottle 1 APPLIC TOPICAL ×2 (08:12→21:32)
[2024-03-02] MEDS: LORazepam 1 MG Tablet PO ×2 (08:16→21:30)
[2024-03-02] MEDS: oxyCODONE 5 MG Tablet PO ×3 (08:24→21:30)
[2024-03-02 11:26] LABS: Bedside Glucose 130 mg/dL (74-106)
--- NOTE | 2024-03-02 12:18 | CASEMGMT ---
Social Work SW received phone call and fax from [facility] - pt lost her appeal, however, pt elected to file reconsideration, which can take up to 14 days for determination. SW spoke with pt and educated on OOP cost if determination is not overturned. Pt missunderstood from [facility] explaination, and cannot afford to pay OOP, and is electing to DC as planned on 03/04. [facility] can accept with SOC 03/05. W/C to be delivered to pt's room. SW provided resources for purchasing other DME needed. Family to transport. Plan: appeal lost, DC as planned 03/04 Randa Rosales, WELDING ENGINEER AIRCRAFT ENGINE MECHANIC OVERHAUL
[2024-03-02] MEDS: Insulin Lispro 100 UNIT/ML INSULN.PEN 16 UNIT SC (12:24)
[2024-03-02 14:30] VITALS: BP 142/66; PULSE 61
--- NOTE | 2024-03-02 15:57 | CASEMGMT ---
Social Work BIMS () and PHQ-2 () completed for MDS assessment. Randa Rosales MSW CLIP AND HANGER ATTACHER
[2024-03-02 16:25] LABS: Bedside Glucose 133 mg/dL (74-106)
--- NOTE | 2024-03-02 17:17 | CASEMGMT ---
Social Work stopped this worker as SW as exiting the unit at close of business day. upset about pt still needing to DC on 03/04, but could not d/t not being able to get into the home because the handrails were not in place yet. The cut off man was installing the rails on 03/08. The also stated they have not found a knee sling. SW reminded of the resources given to pt and at POC meeting on where to purchase the knee sling, and how therapy has been practicing steps with chair method in therapy sessions. stated pt does not like that method. SW expressed understanding, but insurance does consider these needs skillable and these needs have been identified and discussed prior to DC date being issued. inquired about asking the insurance for continued stay as Dr. Berry had told pt she needed to remain for another week. At this time, pt/'s dtr presented to this worker's office whom stated she had been talking to Dr. Berry. SW responded to 's previous statement, that even if a Dr requests continued stay, the insurance does not need to follow that, and explained there is no supporting documentation from Dr Berry on this request. SW explained pt had already completed appeal, lost, and opted to file second level appeal, and reexplained the appeal rights - that is the only other option. confirmed pt cannot pay OOP. SW explained and showed and dtr Dr. Berry's last progress note on 02/22 did not indicate his recommendations. Dtr stated she can contact Dr. Berry. SW offered if can enter new note with recommendations, this worker can have HIM send that note to [facility] for reconsideration. Dtr and appreciative. SW sent communication to Yi in HIM. Dr. Berry note sent to [facility] once completed. Randa Rosales, JESSY ROBINW
[2024-03-02] MEDS: Insulin Lispro 100 UNIT/ML INSULN.PEN 14 UNIT SC (17:40)
[2024-03-02 21:27] LABS: Bedside Glucose 165 mg/dL (74-106)
[2024-03-02] MEDS: Atorvastatin Calcium 10 MG Tablet PO (21:31)
[2024-03-02] MEDS: traZODone 100 MG Tablet PO (21:32)
[2024-03-02] MEDS: hydrOXYzine PAM 25 MG Capsule 50 MG PO (21:32)
[2024-03-02 21:37] VITALS: BP 113/60; PULSE 64; RESP 18
[2024-03-03] MEDS: oxyCODONE 5 MG Tablet PO ×4 (05:45→18:30)
[2024-03-03] MEDS: Gabapentin 100 MG Capsule PO ×3 (05:45→22:09)
[2024-03-03] MEDS: Levothyroxine 50 MCG Tablet PO (05:47)
[2024-03-03] MEDS: cloNIDine HCl 0.1 MG Tablet PO ×3 (05:47→22:12)
[2024-03-03 05:54] VITALS: BP 117/62; PULSE 62; RESP 16
[2024-03-03 06:29] LABS: Bedside Glucose 147 mg/dL (74-106)
[2024-03-03 08:57] VITALS: BP 112/54; PULSE 73; RESP 16; TEMP 36.3; O2SAT 94
[2024-03-03] MEDS: Enoxaparin 40 MG/0.4 ML Syringe SC (09:00)
[2024-03-03] MEDS: Folic Acid 1 MG Tablet PO (09:02)
[2024-03-03] MEDS: LORazepam 1 MG Tablet PO ×2 (09:02→22:09)
[2024-03-03] MEDS: Escitalopram Oxalate 20 MG Tablet PO (09:02)
[2024-03-03] MEDS: Pantoprazole Sodium 40 MG Tablet PO (09:02)
[2024-03-03] MEDS: Cholecalciferol (VIT D3) 25 MCG TABLET (1,000 UNITS) PO (09:02)
[2024-03-03] MEDS: Lisinopril 20 MG Tablet PO (09:02)
[2024-03-03] MEDS: Atenolol 25 MG Tablet PO (09:02)
[2024-03-03] MEDS: Lactobacillis Acidophilus 1 CAP PO (09:03)
[2024-03-03] MEDS: Insulin Lispro 100 UNIT/ML INSULN.PEN 10 UNIT SC (09:03)
[2024-03-03] MEDS: Insulin Glargine-YFGN 100 UNIT/ML Pen 40 UNIT SC ×2 (09:03→22:10)
[2024-03-03] MEDS: Nystatin Powder 15gm Bottle 1 APPLIC TOPICAL ×2 (09:04→22:11)
[2024-03-03] MEDS: Acetaminophen 500 MG Tablet 1000 MG PO ×2 (09:08→18:31)
--- NOTE | 2024-03-03 10:51 | DCINST_ITS ---
Discharge Instructions Diet Discharge Diet: - (1800-calorie, carbohydrate controlled, low-salt and low-fat) Activity Discharge Activity: May Not Drive, May Shower and Use Walker (with knee support. This can be purchased at [employer]. ) Weight Bearing Status: No weight bearing (on the left leg. Uses a knee support and a FWW for ambulation. ) Keep extremity elevated above heart level: Left Leg Dressing / Incision Call your doctor if your incision/area has: Continuous Slow Oozing, Sudden Increased Bleeding, Increased Pain/ Swelling, Increased Redness, Foul Smelling Discharge and Swelling at the incision site Call your doctor if you observe: Fever of 101 or Higher, Shortness of breath, Dizziness, Fainting spells, Chest pain, Increased palpitations (irregular heartbeat), Calf discomfort and Uncontrolled pain Suture Line Care: Avoid Pulling/Pushing and Avoid Pinching/Bending Cleanse incision/area with: Keep Dressing Clean & Dry (Do not change the dressing. Only Dr. Berry will change the dressing for now.....he will tell you at the next visit when he wants you to start changing the dressing.) Follow Up Care Please Follow Up With: Rafi Berry DPM When: Call the office for an APPT first thing Tuesday. You will also need to follow up with Dr. Padgett within 7-10 days post discharge from TCU. Test Results: Test results from this visit will be discussed in further detail at your follow- up appointment, if applicable. Pending Tests Upon Discharge: none Discharge Plan Admission Admit Date/Time: 02/20/24 18:58 Primary Reason for Your Visit: debility due to L first toe arthroplasty Attending Provider: Chirag Moise Chi Primary Care Provider: Rica Padgett Consulting Providers: Rafi Berry Instructions Additional Instructions / Restrictions: 1. You will need to follow up with Dr. Berry following discharge and with Dr. Padgett. 2. Maintain non-wt bearing on the left leg until Dr. Berry tells you that it is OK to start bearing partial weight. Use the wheeled walker with the knee support or the wheelchair to get around. 3. Your Blood sugars are in much better control on 03/02 and 03/03 than they have been. Continue to follow a 1800 calorie carb controlled diet. The goal for the HGBA1C is 7 or less. Your HGBA1C on 01/25/24 was 8.8. Keeping the HGBA1C 7 or less will decrease the risk for complications from uncontrolled diabetes. These complications include but, are not limited to heart disease, strokes, kidney failure, peripheral vascular disease, loss of eyesight, loss of limb. Losing weight is a good idea. It will help with BS control and it will be less of a load on your feet. 4. Dr. Berry has been changing the dressing. You will need to discuss dressing changes with him. 5. Dr. Berry is aware the insurance company denied to extend your stay. 6. You can purchase a wheeled walker with a knee support at [facility]. Insurance will not pay for both a walker and a Wheelchair and since the wheelchair is more expensive it has been provided and you will need to purchase the walker. 7. I reviewed the therapy notes regarding getting up the steps using a shower chair with your 's help and they feel confident that you are able to do this to enter your house. IF you are not able to do this then possibly your could get a thick piece of plywood to use as a ramp to wheel you in and out of the house. Discharge Orders/Prescriptions Prescriptions: New acetaminophen 500 mg Tablet 1,000 mg PO Q6H PRN PRN (Reason: Pain Score 1-3) Qty: 120 0RF folic acid 1 mg Tablet 1 mg PO BREAKFAST Qty: 30 0RF insulin glargine-yfgn 100 unit/mL (3 mL) Insulin Pen 40 unit subcut BID Qty: 8 0RF oxycodone 5 mg Tablet 5 mg PO Q4H PRN PRN (Reason: Pain Score 4-10 Or Pre Pt/Ot) 7 Days Qty: 21 0RF Continued methotrexate sodium 2.5 mg tablet 20 mg PO FR cholecalciferol (vitamin D3) 25 mcg (1,000 unit) capsule 25 mcg PO DAILY escitalopram oxalate 20 mg tablet 20 mg PO DAILY Qty: 90 1RF gabapentin 100 mg capsule 100 mg PO TID 90 Days Qty: 270 2RF hydroxyzine pamoate 50 mg capsule 50 mg PO QHS Qty: 30 2RF omeprazole 40 MG capsule 40 mg PO DAILY Patient Comments: ACID REFLEX trazodone 100 MG tablet 100 mg PO QHS Patient Comments: DEPRESSION levothyroxine 50 MCG tablet 50 mcg PO DAILY simvastatin 20 MG tablet 20 mg PO DAILY atenolol 25 MG tablet 25 mg PO DAILY leucovorin calcium 10 MG tablet 5 mg PO FR lisinopril 20 mg Tablet 20 mg PO DAILY Qty: 30 0RF lorazepam 1 mg tablet 1 mg PO BID 7 Days Qty: 14 0RF Changed clonidine HCl 0.1 mg tablet 0.1 mg PO Q8H PRN PRN (Reason: Anxiety/tremors) Qty: 1 0RF Patient Comments: take 1 tablet by mouth three times a day if needed for anxiety or TREMOR(S) insulin lispro [Humalog KwikPen Insulin] 100 unit/mL Insulin Pen See Rx Instructions .ROUTE .COMPLEX Qty: 15 0RF Rx Instructions: 10 with breakfast 16 with lunch 14 with supper Discontinued Adult 50 Plus Probiotic 4 billion cell capsule 4,000 mmu cells PO DAILY Rx Instructions: administer with a meal acetaminophen 325 mg Tablet 650 mg PO Q6H PRN PRN (Reason: Pain Score 1-10) Qty: 1 0RF enoxaparin 40 mg/0.4 mL Syringe 40 mg subcut DAILY Qty: 4 0RF insulin glargine-yfgn 100 unit/mL (3 mL) Insulin Pen 40 unit subcut QPM Qty: 0 0RF oxycodone 5 mg Tablet 10 mg PO Q6H PRN PRN (Reason: Pain Score 4-10) 3 Days Qty: 14 0RF insulin lispro [Humalog KwikPen Insulin] 100 unit/mL Insulin Pen See Protocol subcut ACHS Qty: 0 0RF Protocol: 4. Sliding Scale Insulin High-Med Dosing Condition: 150-199 mg/dl = 2 units Condition: 200-259 mg/dl = 4 units Condition: 260-324 mg/dl = 6 units Condition: 325-374 mg/dl = 8 units Condition: 375-409 mg/dl = 10 units Condition: 410-449 mg/dl = 11 units Condition: Greater than 449 call physician Protocol Text: - Use for Total Daily Dose of Insulin 56-80 units - Patient who are insulin resistant or septic HIGH MEDIUM DOSING ALGORITHM Medardo (with collagen) 7-7-1.5 gram Powder In Packet 1 packet PO BIDCM Qty: 0 0RF No Action (DME) FreeStyle Prema 2 Sensor Kit See Rx Instructions .Route Qty: 6 3RF Rx Instructions: 1 sensor q 14 days Referrals / Follow Up: Rica Padgett DO [Primary Care Provider] - (pt will make own appt ) Disposition Disposition (needs filled in before D/C Order can be placed): Home Health Service
[2024-03-03] MEDS: Insulin Lispro 100 UNIT/ML INSULN.PEN 16 UNIT SC (12:01)
[2024-03-03 12:07] LABS: Bedside Glucose 133 mg/dL (74-106)
--- NOTE | 2024-03-03 12:55 | CASEMGMT ---
Social Work SW received call from TCU RN and Physician with concerns for pt discharge home planned for tomorrow. SW met with pt and introduced self and role of SW. SW reviewed discharge with pt, that insurance has issued a letter of non coverage due to pt no longer meeting criteria for SNF coverage with dc date set by insurance of 03/04. Pt appealed insurance decision with Robert, a third green party reviewer, and Robert upheld the insurance decision for discharge on 03/04. Pt has requested a reconsideration appeal but this can take up to 14 days for case to be reviewed and decision to be made. Pt confirms all of this as true. SW provided options for pt. Pt can stay in TCU, and starting tomorrow pt can pay the daily out of pocket rate of $660. Pt declined to do this. SW offered to attempt to find placement at a nursing facility and informed pt that this would be private pay. SW informed pt that [facility] and [facility] have no beds available. [facility] does not take weekend referrals, and that [facility] would possible consider a referral on the weekend and may have bed availability. SW informed pt that cost of a room at [facility] is $270 per day. Pt refusing this option stating it is too expensive. SW spent time with pt problem solving discharge home. Pt states that she has a walker and a wheelchair. She does not have a knee sling, but this has been ordered from [employer] and will arrive on . Pt is in agreement that wheelchair can be used until the sling arrives on . Pt concerned with getting into her home. SW inquired if pt has been working on steps during therapy sessions. Pt confirms that she has worked with therapist and uses a sitting method with a shower chair to complete steps. Pt confirms she knows how to do this and she does have a shower chair which is needed for the process. SW reviewed therapy notes from 02/27 which indicate pt ascended and decended 3 steps using this method. SW also informed pt that transportation can be arranged for pt through [facility] to get pt into the home if she does not feel she can get up the steps safely. It is not guaranteed that this transportation will be covered by insurance. Pt stating she will speak to her about this. Pt concerned as her and daughter are involved in a family green party tomorrow and pt does not want to add stress to them by bringing her home. The Green Party is from 1-3. SW informed pt that she could stay in the TCU until the late afternoon/ evening when family has time to enjoy the green party and pick her up after the green party and take her home. Pt can discharge at any time on 03/04 up until 1159pm. Pt expressing frustration with SW in discussing discharge. Pt stating she will talk to her and figure it out and denies any further needs from SW. Physician and nursing updated on conversation and discharge home will proceed on 03/04. DIANE Cook
--- NOTE | 2024-03-03 13:37 | PCM.DC.SUM ---
Providers Date of Admission: 02/20/24 Date of Discharge: 03/04/24 Primary Care Physician: Dr. Rica Padgett, Consultations 02/20/24 21:41 Consult: Podiatry Routine Consulting Provider: Rafi Berry Reason for Consult: s/p left 1st toe arthroplasty (Lamar) EMERGENT Consult: No MD Notified: Yes Date Notified: 02/21/24 Time Notified: 11:14 Method of Notification: Text Reason For Visit: ARTHROPLASTY FIRST LEFT TOE WITH PLACEMENT Diagnosis Discharge Diagnosis (1) Debility: Status: Acute Code(s): R53.81 - Other malaise (2) Hallux rigidus, left foot: Status: Chronic Code(s): M20.22 - Hallux rigidus, left foot (3) H/O arthroplasty: Status: Acute Code(s): Z96.60 - Presence of unspecified orthopedic joint implant (4) Uncontrolled diabetes mellitus: Status: Chronic Qualifiers: Diabetes mellitus type: type 2 Glycemic state: with hyperglycemia Qualified Code(s): E11.65 - Type 2 diabetes mellitus with hyperglycemia (5) Fibromyalgia: Status: Chronic Code(s): M79.7 - Fibromyalgia (6) Diabetic polyneuropathy: Status: Chronic Code(s): E11.42 - Type 2 diabetes mellitus with diabetic polyneuropathy Qualifiers: Diabetes mellitus type: type 2 Qualified Code(s): E11.42 - Type 2 diabetes mellitus with diabetic polyneuropathy Plan 1. DC home on 03/04/24 2. Has a wheelchair. 3. Can purchase a WW with a knee support at [facility] 3. Able to access her home with 2 steps into the house using a shower chair with the assistance of her . 4. She will need to call Dr. Berry Tuesday AM to schedule an appt. 5. Call to schedule and appt with Dr. Padgett to be seen in the next 7-10 days. 6. Rx's faxed to [facility], except for the RX for Lorazepam which was faxed to [facility] retail pharmacy. I do not think she needs a refill but, was not able to access the OARRS report and she fills the RX at [facility]. She is prescribed this medication by Dr. Lee. 7. Do NOT change the dressing before talking with Dr. Berry. Medications at Discharge Home Medications omeprazole 40 mg capsule,delayed release 40 mg PO DAILY GERD 08/30/13 trazodone 100 mg tablet 100 mg PO QHS mood 08/30/13 levothyroxine 50 mcg tablet 50 mcg PO DAILY thyroid 10/21/17 simvastatin 20 mg tablet 20 mg PO DAILY cholesterol 10/21/17 atenolol 25 mg tablet 25 mg PO DAILY heart 05/18/19 methotrexate sodium 2.5 mg tablet 20 mg PO FR fibromyalgia 08/19/20 leucovorin calcium 10 mg tablet 5 mg PO FR supplement 12/08/20 cholecalciferol (vitamin D3) 25 mcg (1,000 unit) capsule 25 mcg PO DAILY supplement 09/13/22 lisinopril 20 mg tablet 20 mg PO DAILY blood pressure #30 tabs 09/17/22 escitalopram oxalate 20 mg tablet 20 mg PO DAILY mood #90 tabs 09/07/23 gabapentin 100 mg capsule 100 mg PO TID nerve pain 90 days #270 caps 09/07/23 hydroxyzine pamoate 50 mg capsule 50 mg PO QHS mood #30 caps 09/07/23 flash glucose sensor (FreeStyle Prema 2 Sensor kit) #6 ea 11/28/23 acetaminophen 500 mg tablet 1,000 mg (2 x 500 mg) PO Q6H PRN PRN Pain Score 1-3 #120 tabs 03/03/24 clonidine HCl 0.1 mg tablet 0.1 mg PO Q8H PRN PRN Anxiety/tremors #1 TAB 03/03/24 folic acid 1 mg tablet 1 mg PO BREAKFAST #30 tabs 03/03/24 insulin glargine-yfgn 100 unit/mL (3 mL) subcutaneous pen 40 unit (0.4 mL) subcut BID #8 pens 03/03/24 insulin lispro 100 unit/mL subcutaneous pen (Humalog KwikPen (U-100) Insulin) See Rx Instructions .Route .COMPLEX diabetes #15 mL 03/03/24 lorazepam 1 mg tablet 1 mg PO BID mood 1 week #14 tabs 03/03/24 oxycodone 5 mg tablet 5 mg PO Q4H PRN PRN Pain Score 4-10 Or Pre Pt/Ot 1 week #21 tabs 03/03/24 Hospital Course Operations - (Lamar arthroplasty left great toe on 02/17/[address] Berry) Procedures None Summary of Care Provided Minutes Spent on Discharge: 30 Hospital Course: Antonia Savage is a 63 YO female with a PMH of uncontrolled DM II, diabetic peripheral polyneuropathy, morbid obesity, fibromyalgia, anxiety/depression, obstructive sleep apnea, hypothyroidism, fibromyalgia and recurrent diabetic ulcers of the Left great toe. She was admitted to the hospital on 02/17/24 for a Lamar arthroplasty of the L great toe for Hallux Rigidus by Dr. Berry. With the exception of uncontrolled DM the post operative course was unremarkable. She was transferred to the TCU at [facility] on 02/20/24 for strengthening/rehabilitation prior to returning home. Her stay on TCU was unremarkable. Adjustments to the insulin regimen were made to get the blood sugars under control. BS's were initially uncontrolled at TCU but, with adjustments to the insulin regimen the majority of blood sugars were less than 180 with no hypoglycemia. Blood sugars at are the most likely to be >200 and further adjustments to the insulin regimen can be done by Dr. Padgett or endocrinology. HGB was stable and WNL while on TCU. Metabolic alkalosis resolved and prior to discharge serum bicarb was 28. Potassium was 4.2 and the creatinine was within her baseline at 0.8 with a estimated creatinine clearance of 88.07. TSH was normal at 2.64. Vitamin D was within normal limits at 38.6. At the time of discharge from TCU she is supervision/set up for eating, upper body dressing, lower body dressing, toileting and toilet transfer. She requires minimal assistance with tub/shower transfer and bathing. She is able to do 13 sit to stands in 30 seconds using the bilateral upper extremities to push out. She is able to ascend/descend 3 steps with a shower chair at minimal assist of 1 using 1 handrail. Her was educated on how best to assist her. She has ambulated up to 120 feet at contact-guard assist/standby assist with a front wheeled walker and in the sling. A wheelchair was provided to her by [employer] and she will purchase a WW with a knee sling. Home health care was arranged by the social services coordinator with [facility] home health care and she will be seen on 03/05/2024. She will follow-up with Dr. Padgett and Dr. Berry following discharge from transitional care. She will follow-up with endocrinology as previously scheduled. I recommended to her that she ask Dr. Padgett for a referral to the [facility] program at [facility] run by the dieticians. The patient has a mobility limitation that cannot be sufficiently resolved by using a cane or walker. Use of a w/c will improve the participation in ADLs on a regular basis, in the home. Physical Exam Const alert, oriented x3 and no apparent distress General Appearance: cooperative HEENT moist oral mucous membranes HEENT Narrative: No thrush Eyes PERRL and EOMs intact bilaterally Resp normal respiratory effort, normal air movement and clear to auscultation bilaterally Resp Narrative: No conversational dyspnea Effort and Inspection: Negative for tachypneic Cardio regular rate, regular rhythm and no gallops GI normal to inspection, nondistended, normoactive bowel sounds, soft to palpation and non-tender GI Narrative: Having regular bowel movements. No guarding with palpation. Extremity no calf tenderness Extremity Narrative: No ankle edema. Skin Wound Narrative: The bandage on the Left foot is being changed by Dr. Berry. She will call his office in the morning to see what he would like to do with dressing changes. Psych affect normal and denies suicidal ideation Appearance: appropriate Attitude: No agitated Weight / BMI Weight Weight: 249 lb 12.8 oz Body Mass Index (BMI) 42.8 ABG / Lab / Microbiology Data 02/28/24 05:28 02/28/24 05:28 Laboratory: Laboratory Results - last 24 hr 03/02/24 16:04: POC Glucose 133 H 03/02/24 21:02: POC Glucose 165 H 03/03/24 06:03: POC Glucose 147 H 03/03/24 11:40: POC Glucose 133 H Microbiology: Microbiology 02/24/24 07:00 Nasal Secretion SARS-CoV-2 Antigen (Rapid) - Final D/C Instructions Discharge Diet: - (1800-calorie, carbohydrate controlled, low-salt and low-fat) Weight Bearing Status: No weight bearing (on the left leg. Uses a knee support and a FWW for ambulation. ) Keep extremity elevated above heart level: Left Leg Call your doctor if your incision/area has: Continuous Slow Oozing, Sudden Increased Bleeding, Increased Pain/ Swelling, Increased Redness, Foul Smelling Discharge and Swelling at the incision site Call your doctor if you observe: Fever of 101 or Higher, Shortness of breath, Dizziness, Fainting spells, Chest pain, Increased palpitations (irregular heartbeat), Calf discomfort and Uncontrolled pain Suture Line Care: Avoid Pulling/Pushing and Avoid Pinching/Bending Cleanse incision/area with: Keep Dressing Clean & Dry (Do not change the dressing. Only Dr. Berry will change the dressing for now.....he will tell you at the next visit when he wants you to start changing the dressing.) Pending Tests Upon Discharge: none Please Follow Up With: Rafi Berry DPM When: Call the office for an APPT first thing Tuesday. You will also need to follow up with Dr. Padgett within 7-10 days post discharge from TCU. Meaningful Use Info Meaningful Use Meaningful Use Diagnoses (Choose all that apply): None applicable Ischemic Stroke Statin Dosing Therapy Reference: STATIN DOSE THERAPY REFERENCE: * Patients > 75 years receive moderate or high dose statin therapy. * Patients 75 years or YOUNGER should receive HIGH intensity statin dose unless contraindicated. You will be required to document reason for non-treatment if statin daily dose does not meet guidelines. HIGH DOSE STATIN THERAPY DAILY Atorvastatin > than or = to 40 mg Rosuvastatin > than or = to 20 mg Amlodipine + Atorvastatin > than or = to 2.5/40 mg Ezetimibe + Simvastatin 10/80 mg Simvastatin 80mg Discharge Plan Admission Admit Date/Time: 02/20/24 18:58 Primary Reason for Your Visit: debility due to L first toe arthroplasty Attending Provider: Chirag Moise Chi Primary Care Provider: Rica Padgett Consulting Providers: Rafi Berry Instructions Additional Instructions / Restrictions: 1. You will need to follow up with Dr. Berry following discharge and with Dr. Padgett. 2. Maintain non-wt bearing on the left leg until Dr. Berry tells you that it is OK to start bearing partial weight. Use the wheeled walker with the knee support or the wheelchair to get around. 3. Your Blood sugars are in much better control on 03/02 and 03/03 than they have been. Continue to follow a 1800 calorie carb controlled diet. The goal for the HGBA1C is 7 or less. Your HGBA1C on 01/25/24 was 8.8. Keeping the HGBA1C 7 or less will decrease the risk for complications from uncontrolled diabetes. These complications include but, are not limited to heart disease, strokes, kidney failure, peripheral vascular disease, loss of eyesight, loss of limb. Losing weight is a good idea. It will help with BS control and it will be less of a load on your feet. 4. Dr. Berry has been changing the dressing. You will need to discuss dressing changes with him. 5. Dr. Berry is aware the insurance company denied to extend your stay. 6. You can purchase a wheeled walker with a knee support at [facility]. Insurance will not pay for both a walker and a Wheelchair and since the wheelchair is more expensive it has been provided and you will need to purchase the walker. 7. I reviewed the therapy notes regarding getting up the steps using a shower chair with your 's help and they feel confident that you are able to do this to enter your house. IF you are not able to do this then possibly your could get a thick piece of plywood to use as a ramp to wheel you in and out of the house. Discharge Orders/Prescriptions Prescriptions: New acetaminophen 500 mg Tablet 1,000 mg PO Q6H PRN PRN (Reason: Pain Score 1-3) Qty: 120 0RF folic acid 1 mg Tablet 1 mg PO BREAKFAST Qty: 30 0RF insulin glargine-yfgn 100 unit/mL (3 mL) Insulin Pen 40 unit subcut BID Qty: 8 0RF oxycodone 5 mg Tablet 5 mg PO Q4H PRN PRN (Reason: Pain Score 4-10 Or Pre Pt/Ot) 7 Days Qty: 21 0RF Continued methotrexate sodium 2.5 mg tablet 20 mg PO FR cholecalciferol (vitamin D3) 25 mcg (1,000 unit) capsule 25 mcg PO DAILY escitalopram oxalate 20 mg tablet 20 mg PO DAILY Qty: 90 1RF gabapentin 100 mg capsule 100 mg PO TID 90 Days Qty: 270 2RF hydroxyzine pamoate 50 mg capsule 50 mg PO QHS Qty: 30 2RF omeprazole 40 MG capsule 40 mg PO DAILY Patient Comments: ACID REFLEX trazodone 100 MG tablet 100 mg PO QHS Patient Comments: DEPRESSION levothyroxine 50 MCG tablet 50 mcg PO DAILY simvastatin 20 MG tablet 20 mg PO DAILY atenolol 25 MG tablet 25 mg PO DAILY leucovorin calcium 10 MG tablet 5 mg PO FR lisinopril 20 mg Tablet 20 mg PO DAILY Qty: 30 0RF lorazepam 1 mg tablet 1 mg PO BID 7 Days Qty: 14 0RF Changed clonidine HCl 0.1 mg tablet 0.1 mg PO Q8H PRN PRN (Reason: Anxiety/tremors) Qty: 1 0RF Patient Comments: take 1 tablet by mouth three times a day if needed for anxiety or TREMOR(S) insulin lispro [Humalog KwikPen Insulin] 100 unit/mL Insulin Pen See Rx Instructions .ROUTE .COMPLEX Qty: 15 0RF Rx Instructions: 10 with breakfast 16 with lunch 14 with supper Discontinued Adult 50 Plus Probiotic 4 billion cell capsule 4,000 mmu cells PO DAILY Rx Instructions: administer with a meal acetaminophen 325 mg Tablet 650 mg PO Q6H PRN PRN (Reason: Pain Score 1-10) Qty: 1 0RF enoxaparin 40 mg/0.4 mL Syringe 40 mg subcut DAILY Qty: 4 0RF insulin glargine-yfgn 100 unit/mL (3 mL) Insulin Pen 40 unit subcut QPM Qty: 0 0RF oxycodone 5 mg Tablet 10 mg PO Q6H PRN PRN (Reason: Pain Score 4-10) 3 Days Qty: 14 0RF insulin lispro [Humalog KwikPen Insulin] 100 unit/mL Insulin Pen See Protocol subcut ACHS Qty: 0 0RF Protocol: 4. Sliding Scale Insulin High-Med Dosing Condition: 150-199 mg/dl = 2 units Condition: 200-259 mg/dl = 4 units Condition: 260-324 mg/dl = 6 units Condition: 325-374 mg/dl = 8 units Condition: 375-409 mg/dl = 10 units Condition: 410-449 mg/dl = 11 units Condition: Greater than 449 call physician Protocol Text: - Use for Total Daily Dose of Insulin 56-80 units - Patient who are insulin resistant or septic HIGH MEDIUM DOSING ALGORITHM Medardo (with collagen) 7-7-1.5 gram Powder In Packet 1 packet PO BIDCM Qty: 0 0RF No Action (DME) FreeStyle Prema 2 Sensor Kit See Rx Instructions .Route Qty: 6 3RF Rx Instructions: 1 sensor q 14 days Referrals / Follow Up: Rica Padgett, DO [Primary Care Provider] - (pt will make own appt ) Disposition Disposition (needs filled in before D/C Order can be placed): Home Health Service Charges/Coding Visit Charges Inpatient E&M: 25980 SNF Disch
[2024-03-03 14:10] VITALS: BP 96/50
[2024-03-03 17:08] LABS: Bedside Glucose 136 mg/dL (74-106)
[2024-03-03] MEDS: Insulin Lispro 100 UNIT/ML INSULN.PEN 14 UNIT SC (17:38)
[2024-03-03 21:29] LABS: Bedside Glucose 224 mg/dL (74-106)
[2024-03-03 22:00] VITALS: PULSE 60; RESP 16; O2SAT 94
[2024-03-03] MEDS: hydrOXYzine PAM 25 MG Capsule 50 MG PO (22:11)
[2024-03-03] MEDS: Atorvastatin Calcium 10 MG Tablet PO (22:12)
[2024-03-03] MEDS: traZODone 100 MG Tablet PO (22:12)
--- NOTE | 2024-03-03 23:15 | NURSING ---
Patient states plan is to discharge at 11:30 on 03/04/24 with help of daughter and spouse, wants to discharge prior to attending [id number]'s 88th birthday constitution party.
[2024-03-04] MEDS: Levothyroxine 50 MCG Tablet PO (06:10)
[2024-03-04] MEDS: Gabapentin 100 MG Capsule PO (06:10)
[2024-03-04] MEDS: cloNIDine HCl 0.1 MG Tablet PO (06:10)
[2024-03-04 06:12] LABS: Bedside Glucose 135 mg/dL (74-106)
[2024-03-04 06:22] VITALS: PULSE 62; RESP 18; O2SAT 95
[2024-03-04 08:17] VITALS: BP 110/57; PULSE 67; RESP 16; TEMP 36.4; O2SAT 95
[2024-03-04] MEDS: Enoxaparin 40 MG/0.4 ML Syringe SC (08:22)
[2024-03-04] MEDS: Lisinopril 20 MG Tablet PO (08:22)
[2024-03-04] MEDS: Folic Acid 1 MG Tablet PO (08:22)
[2024-03-04] MEDS: Lactobacillis Acidophilus 1 CAP PO (08:22)
[2024-03-04] MEDS: LORazepam 1 MG Tablet PO (08:22)
[2024-03-04] MEDS: Pantoprazole Sodium 40 MG Tablet PO (08:23)
[2024-03-04] MEDS: Cholecalciferol (VIT D3) 25 MCG TABLET (1,000 UNITS) PO (08:23)
[2024-03-04] MEDS: Nystatin Powder 15gm Bottle 1 APPLIC TOPICAL (08:23)
[2024-03-04] MEDS: Atenolol 25 MG Tablet PO (08:23)
[2024-03-04] MEDS: Insulin Lispro 100 UNIT/ML INSULN.PEN 10 UNIT SC (08:23)
[2024-03-04] MEDS: Escitalopram Oxalate 20 MG Tablet PO (08:23)
[2024-03-04] MEDS: Insulin Glargine-YFGN 100 UNIT/ML Pen 40 UNIT SC (08:25)
[2024-03-04 11:53] LABS: Bedside Glucose 138 mg/dL (74-106)
== END 2024-03-04 12:10 | disposition home health service (06) | DRG 560 ==
PROVIDERS: Admitting Provider Family Medicine Geriatric Medicine; PCP Family Medicine; Visit Provider Family Medicine Geriatric Medicine
DX: Z47.89 Encounter for other orthopedic aftercare (principal); E87.3 Alkalosis; E11.42 Type 2 diabetes mellitus with diabetic polyneuropathy; L97.522 Non-pressure chronic ulcer of other part of left foot with fat layer exposed; E11.621 Type 2 diabetes mellitus with foot ulcer; Z79.4 Long term (current) use of insulin; I10 Essential (primary) hypertension; E03.9 Hypothyroidism, unspecified; F32.A Depression, unspecified; E55.9 Vitamin D deficiency, unspecified; E78.00 Pure hypercholesterolemia, unspecified; K21.9 Gastro-esophageal reflux disease without esophagitis; F41.9 Anxiety disorder, unspecified; M79.7 Fibromyalgia; M20.22 Hallux rigidus, left foot; G47.00 Insomnia, unspecified; F43.10 Post-traumatic stress disorder, unspecified; Z79.01 Long term (current) use of anticoagulants; Z87.891 Personal history of nicotine dependence; Z79.899 Other long term (current) drug therapy; Z86.14 Personal history of Methicillin resistant Staphylococcus aureus infection
CPT/HCPCS: 36415; 80048; 80061; 82962; 84443; 85025; 87811; 97110; 97116; 97162; 97166; 97530; 97535; 97802; 97803; A4216; J8610

== ENCOUNTER → 2024-06-01 | Outpatient (CLI) | payer MEDICARE, OTHER, SELFPAY ==
[2024-06-01 15:22] LABS: Absolute Lymphocyte Count 1.84 X10^3/uL (0.83-4.51); Basophil# 0.04 X10^3/uL; Basophil% 0.6 % (0-1); Eosinophil# 0.18 X10^3/uL; Eosinophils% 2.7 % (0-5); Hematocrit 42.9 % (37-47); Hemoglobin 13.4 g/dL (12.0-15.0); Lymphocyte # 1.84 X10^3/ul (0.83-4.51); Lymphocyte % 27.8 % (19-41); Mean Corp Hgb Conc 31.2 g/dL (32-36); Mean Corpuscular Hgb 28.7 pg (27.0-32.0); Mean Corpuscular Volume 91.9 fL (81-99); Mean Platelet Vol. 9.6 fl (6.2-12.0); Monocyte# 0.51 X10^3/uL; Monocyte% 7.7 % (0-10); NRBC Flagged by Analyzer 0 % (0-5); Neutrophil # 4.01 X10^3/uL (2.7-7.7); Neutrophil % 60.7 % (47-70); Platelet Count 228 K/mm3 (150-450); RBC Distribution Width CV 13.7 % (11.6-14.6); RBC Distribution Width SD 46.1 fl (35.1-43.9); Red Blood Count 4.67 M/mm3 (4.2-5.4); White Blood Count 6.6 K/mm3 (4.4-11.0)
[2024-06-01 15:56] LABS: ALB/GLOB Ratio 0.8 RATIO (0.9-2.4); AST(SGOT) 63 U/L (15-37); Alanine Aminotransfer ALT/SGPT 66 U/L (13-56); Albumin, Serum 3.3 g/dL (3.2-5.0); Alkaline Phosphatase 102 U/L (45-117); Anion Gap 7 (5-15); BUN 16 mg/dL (7-18); BUN/Creat Ratio 18.1 RATIO (10-20); Calcium,Total 9.4 mg/dL (8.5-10.1); Chloride 102 mmol/L (98-107); Creatinine, Serum 0.88 mg/dL (0.55-1.02); EST Glomerular Filtration Rate 68 mL/min (>60); Est Glom Filt Rate - Afr Amer 82 mL/min (>60); Ferritin 31 ng/mL (8-252); Glucose 195 mg/dL (74-106); Iron 78 ug/dL (50-170); Potassium 3.8 mmol/L (3.5-5.1); Protein, Total 7.3 g/dL (6.4-8.2); Sodium Level 138 mmol/L (136-145); T4 Free Direct 1.07 ng/dL (0.76-1.46); Vitamin B12 613 pg/mL (211-911); Vitamin D,25 Hydroxy 38.7 ng/mL
== END | disposition home or self-care (01) ==
LOC: BFHLAB 10:55
PROVIDERS: PCP Family Medicine; Visit Provider Family Medicine
DX: R53.83 Other fatigue (principal); E55.9 Vitamin D deficiency, unspecified; E03.9 Hypothyroidism, unspecified
CPT/HCPCS: 36415; 80053; 82306; 82607; 82728; 83540; 84439; 84443; 85025

== ENCOUNTER → 2024-07-13 | Outpatient (CLI) | payer MEDICARE, OTHER, SELFPAY ==
[2024-07-13 15:42] LABS: Color, Urine Yellow (Yellow); Glucose, Dipstick Normal (Normal); Ketone-Dipstick Negative (Negative); Leukocyte Esterase-Dipstick 25 /ul (Negative); Nitrite-Dipstick Negative (Negative); Occult Blood-Urine Negative /ul (Negative); Protein-Dipstick Negative (Negative); Urine Bilirubin Dipstick Negative (Negative); Urine Clarity Clear (Clear); Urine Urobilinogen Normal (Normal)
[2024-07-13 16:01] LABS: Amphetamine Urine VISTA NEGATIVE (<1000 ng/mL); Barbiturate Urine VISTA NEGATIVE (< 200 ng/mL); Benzodiazepine Urine VISTA NEGATIVE (< 200 ng/mL); Cocaine Urine VISTA NEGATIVE (< 300 ng/mL); Ecstacy Urine VISTA NEGATIVE (< 500 ng/mL); Methadone Urine VISTA NEGATIVE (< 300 ng/mL); PCP Urine VISTA NEGATIVE (< 25 ng/mL); THC Urine VISTA NEGATIVE (< 50 ng/mL); Vista UDS pH Range 5
== END | disposition home or self-care (01) ==
PROVIDERS: PCP Family Medicine; Referring Provider Anesthesiology Pain Medicine; Visit Provider Anesthesiology Pain Medicine
DX: F11.20 Opioid dependence, uncomplicated (principal)
CPT/HCPCS: 80307; 81002

== ENCOUNTER 2024-07-27 14:32 | Observation (INO) | payer MEDICARE, OTHER, SELFPAY ==
[2024-07-27 14:32] VITALS: BP 115/73; PULSE 85; RESP 16; TEMP 35.7; O2SAT 92
[2024-07-27 14:44] VITALS: BMI 44.4
--- NOTE | 2024-07-27 14:48 | EDS_ITS ---
HPI <KENNY Hinkle - Last Filed: 07/27/24 19:02> History of Present Illness Chief Complaint: Lower Extremity Injury Narrative Narrative: 64-year-old female with past medical history of type 2 diabetes presents with 5 days of burning and leg cramps in both posterior thigh and upper counts. She states her legs feel restless and she has to get up and down, give her relief. She tried ropinirole for restless legs last night and it did not help. She denies back pain or any shooting pain down the legs. She has no weakness or numbness or tingling. 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 Hallux rigidus, left foot Hypothyroidism Uncontrolled diabetes mellitus Gastroesophageal reflux disease MRSA infection Uses wheelchair Walker as ambulation aid High cholesterol CPAP (continuous positive airway pressure) dependence Sleep apnea Anxiety disorder, unspecified Chronic pain Depressive 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 Obesity hypoventilation syndrome Obesity Normal stress echocardiogram Wears glasses PTSD (post-traumatic stress disorder) Depression Anxiety Thyroid disease Insulin dependent diabetes mellitus Ambulates with cane Fibromyalgia Arthritis DVT (deep venous thrombosis) High cholesterol Migraine headache Back pain Gait instability Syncope Dietary restriction History of diverticulitis Gastric reflux Former smoker ASV (adaptive servo-ventilation) use counseling On home oxygen therapy Shortness of breath on exertion Leg cramps History of pain when walking History of edema History of stress test Hypertension Implantable intrathecal infusion pump present Mixed connective tissue disease Osteoarthritis History of DVT (deep vein thrombosis) History of pulmonary embolus (PE) Atrophic vaginitis Bone spur Osteoarthritis calcium calcifications Mixed connective tissue disease History of neuropathy History of spinal stenosis History of diabetes mellitus Acromioclavicular arthrosis Strain of shoulder, left Neck pain Limb weakness Difficulty balancing Fatigue Shoulder pain DJD (degenerative joint disease) of lumbar spine Home Medications ?Medication ?Instructions ?Recorded ?Last Taken ?Type omeprazole 40 mg capsule,delayed 40 mg PO DAILY GERD 08/30/13 02/20/24 History release trazodone 100 mg tablet 100 mg PO QHS mood 08/30/13 02/19/24 History levothyroxine 50 mcg tablet 50 mcg PO DAILY thyroid 10/21/17 09/15/22 History simvastatin 20 mg tablet 20 mg PO DAILY cholesterol 10/21/17 02/20/24 History atenolol 25 mg tablet 25 mg PO DAILY heart 05/18/19 02/18/24 History methotrexate sodium 2.5 mg tablet 20 mg PO FR fibromyalgia 08/19/20 09/10/22 History leucovorin calcium 10 mg tablet 5 mg PO FR supplement 12/08/20 09/10/22 History cholecalciferol (vitamin D3) 25 25 mcg PO DAILY supplement 09/13/22 09/15/22 History mcg (1,000 unit) capsule lisinopril 20 mg tablet 20 mg PO DAILY blood pressure #30 09/17/22 Unknown Rx tabs gabapentin 100 mg capsule 100 mg PO TID nerve pain 90 days 09/07/23 02/20/24 13:30 Rx #270 caps hydroxyzine pamoate 50 mg capsule 50 mg PO QHS mood #30 caps 09/07/23 Unknown Rx acetaminophen 500 mg tablet 1,000 mg (2 x 500 mg) PO Q6H PRN 03/03/24 Unknown Rx PRN Pain Score 1-3 #120 tabs clonidine HCl 0.1 mg tablet 0.1 mg PO Q8H PRN PRN 03/03/24 02/20/24 13:30 Rx Anxiety/tremors #1 TAB folic acid 1 mg tablet 1 mg PO BREAKFAST #30 tabs 03/03/24 Unknown Rx insulin glargine-yfgn 100 unit/mL 40 unit (0.4 mL) subcut BID #8 pens 03/03/24 Unknown Rx (3 mL) subcutaneous pen insulin lispro 100 unit/mL See Rx Instructions .Route 03/03/24 Unknown Rx subcutaneous pen (Humalog KwikPen .COMPLEX diabetes #15 mL (U-100) Insulin) oxycodone 5 mg tablet 5 mg PO Q4H PRN PRN Pain Score 03/03/24 Unknown Rx 4-10 Or Pre Pt/Ot 1 week #21 tabs escitalopram oxalate 20 mg tablet 20 mg PO DAILY mood #90 tabs 03/26/24 Unknown Rx blood-glucose sensor (FreeStyle #6 ea 04/02/24 Unknown Rx Prema 3 Sensor device) lorazepam 1 mg tablet 1 mg PO TID mood 05/07/24 Unknown History Ozempic 0.25 mg or 0.5 mg (2 mg/3 0.5 mg (0.736 mL) subcut QWEEK #3 06/07/24 Unknown Rx mL) subcutaneous pen injector mL (semaglutide) Allergy/AdvReac Type Severity Reaction Status Date / Time niacin Allergy Itching Verified 07/27/24 14:33 venlafaxine AdvReac Severe Vomiting Verified 07/27/24 14:33 metformin AdvReac Intermediate Diarrhea Verified 07/27/24 14:33 cephalexin (From Keflex) AdvReac Other Verified 07/27/24 14:33 Family History Sister Breast cancer Diabetes Kidney disease Other Arthritis Heart disease Surgical History History of bunionectomy of both great toes History of lumbar fusion History of total right knee replacement Hx of surgical procedure Hx of arthroscopic knee surgery History of carpal tunnel release Hx of hysterectomy History of back surgery Hx of total knee replacement hx of plantar fasciotomy Social History household members: spouse Smoking Status: Former smoker alcohol intake: never substance use type: does not use caffeine: No what type of physical activity do you participate in: none seatbelt use: always do you feel safe at home: Yes additional social history: [employer] at [employer] Patient is disabled ROS <KENNY Hinkle - Last Filed: 07/27/24 19:02> ROS ED ROS Narrative Constitutional: Negative for fever, chills. Neuro: Negative for motor/sensory dysfunction. Skin: Negative for rash. Musc: Negative for joint pain, swelling, trauma. Heme: Negative for easy bruising, bleeding, lymphadenopathy. EXAM <KENNY Hinkle - Last Filed: 07/27/24 19:02> Physical Exam Narrative Exam Narrative: CONST: Patient sitting in no acute distress. EYES: Normal inspection. NECK: Normal inspection. RESP: No respiratory distress, CTAB. CVS: Regular rate and rhythm, no murmur, no gallop. SKIN: Color normal, no rash, warm, dry, intact. EXTREMITIES: Normal appearance of both lower extremities, full range of motion, no edema. 5/5 strength in bilateral hip flexion and dorsiflexion/plantarflexion. Normal sensation. 2+ DP pulses. No calf tenderness or palpable cords. No erythema or increased warmth. NEURO: Alert and answering questions appropriately. PSYCH: Normal affect. Const Vital Signs: 07/27/24 14:32 07/27/24 16:05 07/27/24 16:11 Temperature 96.3 F L Temperature Source Temporal Pulse Rate 85 67 Respiratory Rate 16 Blood Pressure 115/73 142/65 H Blood Pressure Mean 87 90 Pulse Ox 92 86 93 Oxygen Delivery Method Room Air Room Air Oxygen Flow Rate (L/min) 2 <Dr. Tre Flores DO - Last Filed: 07/27/24 19:12> Physical Exam Const Vital Signs: 07/27/24 14:32 07/27/24 16:05 07/27/24 16:11 Temperature 96.3 F L Temperature Source Temporal Pulse Rate 85 67 Respiratory Rate 16 Blood Pressure 115/73 142/65 H Blood Pressure Mean 87 90 Pulse Ox 92 86 93 Oxygen Delivery Method Room Air Room Air Oxygen Flow Rate (L/min) 2 [facility] <KENNY Hinkle - Last Filed: 07/27/24 19:02> [facility] Narrative Medical decision making narrative: History gathered from: Patient, spouse Patient presents with pain in her posterior thighs and calves and a restless sensation. No back pain. No trauma or injury. She is awake alert with stable vital signs. Her lower extremities appear normal with full range of motion and are neurovascularly intact. There is no signs of infection. No signs or symptoms of DVT. Her blood work was obtained to rule out leukocytosis or electrolyte abnormality and are negative. Her blood sugar is 421 with no DKA and she was given a dose of insulin 10 units subcu here. She has not been wearing a glucose monitor but states she has a new one to put on when she gets home. She was given a dose of Valium 2 mg by mouth here with minimal change in her symptoms. I instructed her to take evzq-qjr-ejqfxgn pain medication. She can discuss with her primary care doctor whether they think adjusting her gabapentin for her restless leg medication would be helpful. She was discharged in stable condition. When the nurse obtained the discharge vitals the patient was 86% on room air with good waveform and was placed on 2 L of O2. She had been lying down at that time and does have sleep apnea and after I set her up on the edge of the bed for several minutes and checked her on room air she was still hypoxic. She complains of several weeks to months of intermittent shortness of breath but cannot really give me a pattern or any aggravating or alleviating factors. I added on an EKG and troponin which are normal. She has a remote history of DVT/PE provoked after surgery and was on Xarelto for several months. I ordered a CTA which shows no PE or acute findings. I am not sure the etiology of her hypoxia but she is still requiring 2 L and will need admitted. I will discuss the case with the hospitalist. Lab Data Attestation: I reviewed the patient's lab results. Labs: Laboratory Results - last 24 hr 07/27/24 07/27/24 07/27/24 14:54 16:32 17:06 WBC 7.6 RBC 4.92 Hgb 14.2 Hct 44.6 MCV 90.7 MCH 28.9 MCHC 31.8 L RDW Std Deviation 44.1 H RDW Coeff of Mouna 13.5 Plt Count 234 MPV 9.3 Immature Gran % (Auto) 0.500 Neut % (Auto) 64.3 Lymph % (Auto) 27.5 Randolph % (Auto) 5.5 Eos % (Auto) 1.8 Baso % (Auto) 0.4 Absolute Neuts (auto) 4.9 Absolute Lymphs (auto) 2.09 Nucleated RBC % 0 Sodium 135 L Potassium 4.6 Chloride 99 Carbon Dioxide 30.0 Anion Gap 7 BUN 14 Creatinine 1.00 Estim Creat Clear Calc 69.70 Est GFR (MDRD) Af Amer 71 Est GFR (MDRD) Non-Af 59 L BUN/Creatinine Ratio 14.0 Glucose 421 H Calcium 8.9 Troponin I High Sens 5 POC Glucose 360 H Radiography Diagnostic Testing: Clinical Impression(s) from Imaging Studies Chest X-Ray 07/27/24 16:40 IMPRESSION: Elevated right hemidiaphragm and possible mild subsegmental atelectasis at the right base Electronically Signed: Rafi Bajwa MD at 17:03 EST , Chest CTA 07/27/24 17:34 IMPRESSION: Minimal atelectasis within the dependent portion of left lower lobe. No acute cardiopulmonary pathology. No evidence for pulmonary embolus Electronically Signed: Rafi Bajwa MD at 18:45 EST , ED attending interpretation of 1-view chest x-ray shows normal heart size, no acute infiltrate. <Dr. Tre Flores, DO - Last Filed: 07/27/24 19:12> [facility] Lab Data Labs: Laboratory Results - last 24 hr 07/27/24 07/27/24 07/27/24 14:54 16:32 17:06 WBC 7.6 RBC 4.92 Hgb 14.2 Hct 44.6 MCV 90.7 MCH 28.9 MCHC 31.8 L RDW Std Deviation 44.1 H RDW Coeff of Mouna 13.5 Plt Count 234 MPV 9.3 Immature Gran % (Auto) 0.500 Neut % (Auto) 64.3 Lymph % (Auto) 27.5 Randolph % (Auto) 5.5 Eos % (Auto) 1.8 Baso % (Auto) 0.4 Absolute Neuts (auto) 4.9 Absolute Lymphs (auto) 2.09 Nucleated RBC % 0 Sodium 135 L Potassium 4.6 Chloride 99 Carbon Dioxide 30.0 Anion Gap 7 BUN 14 Creatinine 1.00 Estim Creat Clear Calc 69.70 Est GFR (MDRD) Af Amer 71 Est GFR (MDRD) Non-Af 59 L BUN/Creatinine Ratio 14.0 Glucose 421 H Calcium 8.9 Troponin I High Sens 5 POC Glucose 360 H Radiography Diagnostic Testing: Clinical Impression(s) from Imaging Studies Chest X-Ray 07/27/24 16:40 IMPRESSION: Elevated right hemidiaphragm and possible mild subsegmental atelectasis at the right base Electronically Signed: Rafi Bajwa MD at 17:03 EST , Chest CTA 07/27/24 17:34 IMPRESSION: Minimal atelectasis within the dependent portion of left lower lobe. No acute cardiopulmonary pathology. No evidence for pulmonary embolus Electronically Signed: Rafi Bajwa MD at 18:45 EST Reading Location ID and State: [facility] / [place] Tel , Service support , EKG Initial EKG: Attestation: I personally reviewed and interpreted this EKG as follows: Interpretation: Sinus Rhythm and Non-Specific ST Changes Comments: EKG was obtained. On my independent interpretation, it showed a normal sinus rhythm with a rate of 75. AL interval, QRS interval, and QTc intervals were all normal. Hendricks was normal. There there is left ventricular hypertrophy with nonspecific ST-T wave changes. Prior EKG tracings: available for review Prior: Unchanged (09/16/2022) Treatment and Re-Evaluation :: I have personally performed a face to face assessment of the patient and have reviewed the SEKOU Note. I performed a substantive portion of the visit including all aspects of the following. My syed findings include: History: Patient presents with pain in her posterior thighs, posterior knees, and That has been getting worse over the past week. Patient states it has gradually gotten worse. Patient describes it as cramping. Patient admits to some tingling into her feet bilaterally. Patient denies any trauma or injury. Patient denies any redness or swelling. Patient denies any fevers or chills. Patient denies any chest pain or shortness of breath. Patient denies any swelling. Exam: Vital signs are stable. Patient is afebrile. Patient is in no acute distress. Oral mucosa is pink and moist. Neck is supple. Trachea is midline. There is no JVD. Musculoskeletal exam reveals tenderness over the popliteal fossae bilaterally. There is no edema. There is no joint effusion. There is no calf tenderness. There is some mild posterior thigh tenderness. There is mild tenderness over the sacroiliac joint bilaterally. There is full range of motion of the lower extremities bilaterally. There is good range of motion of the lumbar spine. Medical Decision Making: Differential diagnosis includes sacroiliitis, lumbar radiculopathy, electrolyte abnormality, fibromyalgia, and restless leg syndrome. CBC will be obtained to assess for leukocytosis and anemia. Basic metabolic profile will be obtained to assess for electrolyte abnormality and renal function. Patient was given a dose of Valium here. CBC was reviewed and was within normal limits. Basic metabolic profile was reviewed. Glucose was elevated at 421. Sodium was slightly low at 135. The remainder is within normal limits. Anion gap was normal. Patient was given a dose of Valium here. Patient was instructed to continue to monitor her blood sugars. Patient was instructed to take Tylenol or ibuprofen as needed for pain. Patient was instructed to continue her medications as previously prescribed. Patient was instructed to follow-up with her primary care physician in 5 to 7 days. Patient understood and was agreeable with the plan. All questions were answered. Prior to discharge, patient was noted to have drop in her pulse oximeter to 86%. Patient does have a history of sleep apnea. However, patient's pulse ox never was still only 88-89 while awake and sitting upright. Because of this, EKG was obtained to assess for cardiac dysrhythmia and cardiac ischemia. High- sensitivity troponin was obtained to assess for cardiac ischemia. Chest x-ray was obtained to assess for pneumonia. EKG was obtained. On my independent interpretation, shows normal sinus rhythm with a rate of 75. AL interval was normal at 154 ms. QRS interval was normal at 86 ms. QTc interval was normal at 451 ms. Hendricks was -6. There is left ventricular hypertrophy noted. There are nonspecific ST-T wave changes. This was unchanged compared to previous EKG dated 09/16/2022. High-sensitivity troponin was reviewed and was normal at 5. Patient was ambulated in the emergency department and her pulse oximeter dropped. Because of this, CTA of the chest was obtained to assess for pulmonary embolism. CTA of the chest was ordered. There is no evidence of pulmonary embolism or aortic dissection. This was interpreted by the radiologist and was also independently reviewed by myself. Because of her hypoxia, I recommended admission to the hospital. Case was discussed with the hospitalist for admission. Patient understood and was agreeable with the plan. All questions were answered. Discharge Plan Triage Chief Complaint: Lower Extremity Injury ED Midlevel Provider: Rica Pardo ED Provider: Tre Flores Dx/Rx/DC Orders Clinical Impression: Bilateral leg cramps, Diabetes mellitus with hyperglycemia, Hypoxia Prescriptions: No Action methotrexate sodium 2.5 mg tablet 20 mg PO FR cholecalciferol (vitamin D3) 25 mcg (1,000 unit) capsule 25 mcg PO DAILY gabapentin 100 mg capsule 100 mg PO TID 90 Days Qty: 270 2RF hydroxyzine pamoate 50 mg capsule 50 mg PO QHS Qty: 30 2RF lorazepam 1 mg tablet 1 mg PO TID omeprazole 40 MG capsule 40 mg PO DAILY Patient Comments: ACID REFLEX trazodone 100 MG tablet 100 mg PO QHS Patient Comments: DEPRESSION levothyroxine 50 MCG tablet 50 mcg PO DAILY simvastatin 20 MG tablet 20 mg PO DAILY atenolol 25 MG tablet 25 mg PO DAILY leucovorin calcium 10 MG tablet 5 mg PO FR lisinopril 20 mg Tablet 20 mg PO DAILY Qty: 30 0RF acetaminophen 500 mg Tablet 1,000 mg PO Q6H PRN PRN (Reason: Pain Score 1-3) Qty: 120 0RF folic acid 1 mg Tablet 1 mg PO BREAKFAST Qty: 30 0RF insulin glargine-yfgn 100 unit/mL (3 mL) Insulin Pen 40 unit subcut BID Qty: 8 0RF oxycodone 5 mg Tablet 5 mg PO Q4H PRN PRN (Reason: Pain Score 4-10 Or Pre Pt/Ot) 7 Days Qty: 21 0RF clonidine HCl 0.1 mg tablet 0.1 mg PO Q8H PRN PRN (Reason: Anxiety/tremors) Qty: 1 0RF Patient Comments: take 1 tablet by mouth three times a day if needed for anxiety or TREMOR(S) insulin lispro [Humalog KwikPen Insulin] 100 unit/mL Insulin Pen See Rx Instructions .ROUTE .COMPLEX Qty: 15 0RF Rx Instructions: 10 with breakfast 16 with lunch 14 with supper escitalopram oxalate 20 mg tablet 20 mg PO DAILY Qty: 90 1RF (DME) FreeStyle Prema 3 Sensor Device See Rx Instructions .Route Qty: 6 1RF Rx Instructions: 1 sensor q 14 days Ozempic 0.25 mg or 0.5 mg (2 mg/3 mL) pen injector 0.5 mg subcut QWEEK Qty: 3 4RF Primary Care Provider: Rica Padgett Referrals: Rica Padgett DO [Primary Care Provider] - Activity Restrictions/Additional Instructions: Check your sugars frequently and follow-up with your primary care doctor. You could also discuss with them if they think changing your gabapentin or restless legs medication would be appropriate for your burning leg symptoms. You can also try [id number] lidocaine or Voltaren gel topically. Print Language: Jordanian Disposition Disposition: Home, Self Care
[2024-07-27 15:04] LABS: Absolute Lymphocyte Count 2.09 X10^3/uL (0.83-4.51); Absolute Neutrophil Count 4.9 X10^3/uL (2.0-7.7); Basophil# 0.03 X10^3/uL; Basophil% 0.4 % (0-1); Eosinophil# 0.14 X10^3/uL; Eosinophils% 1.8 % (0-5); Hematocrit 44.6 % (37-47); Hemoglobin 14.2 g/dL (12.0-15.0); Lymphocyte # 2.09 X10^3/ul (0.83-4.51); Lymphocyte % 27.5 % (19-41); Mean Corp Hgb Conc 31.8 g/dL (32-36); Mean Corpuscular Hgb 28.9 pg (27.0-32.0); Mean Corpuscular Volume 90.7 fL (81-99); Mean Platelet Vol. 9.3 fl (6.2-12.0); Monocyte# 0.42 X10^3/uL; Monocyte% 5.5 % (0-10); NRBC Flagged by Analyzer 0 % (0-5); Neutrophil # 4.88 X10^3/uL (2.7-7.7); Neutrophil % 64.3 % (47-70); Platelet Count 234 K/mm3 (150-450); RBC Distribution Width CV 13.5 % (11.6-14.6); RBC Distribution Width SD 44.1 fl (35.1-43.9); Red Blood Count 4.92 M/mm3 (4.2-5.4); White Blood Count 7.6 K/mm3 (4.4-11.0)
[2024-07-27 15:21] LABS: Anion Gap 7 (5-15); BUN 14 mg/dL (7-18); Calcium,Total 8.9 mg/dL (8.5-10.1); Chloride 99 mmol/L (98-107); EST Glomerular Filtration Rate 59 mL/min (>60); Est Glom Filt Rate - Afr Amer 71 mL/min (>60); Glucose 421 mg/dL (74-106); Potassium 4.6 mmol/L (3.5-5.1); Sodium Level 135 mmol/L (136-145)
[2024-07-27] MEDS: diazePAM 2 MG Tablet PO (15:24)
[2024-07-27] MEDS: Insulin Lispro 100 UNIT/ML INSULN.PEN 10 UNIT SC (16:02)
[2024-07-27 16:05] VITALS: PULSE 67; O2SAT 86
[2024-07-27 16:11] VITALS: BP 142/65; O2SAT 93
--- NOTE | 2024-07-27 16:20 | EKG12_ITS ---
Test Reason : DYSP Blood Pressure : */* mmHG Vent. Rate : 75 BPM Atrial Rate : 75 BPM P-R Int : 154 ms QRS Dur : 86 ms QT Int : 404 ms P-R-T Axes : 20 -6 21 degrees QTcB Int : 451 ms Normal sinus rhythm Minimal voltage criteria for LVH, may be normal variant ( R in aVL ) Inferior infarct , age undetermined Cannot rule out Anterior infarct , age undetermined Abnormal ECG Confirmed by Wilbert Ba ([id number]), commercial production editor MAIRA JENKINS ([id number]) on 07/30/2024 11:30:25 AM Referred By: Confirmed By: Wilbert Ba
--- NOTE | 2024-07-27 16:40 | RAD_ITS ---
STUDY: X-RAY CHEST REASON FOR EXAM: Female, 64 years old. dyspnea TECHNIQUE: PA and lateral COMPARISON: None. FINDINGS: Elevated right hemidiaphragm and mild prominence of markings in the right lower lobe possibly representing mild subsegmental atelectasis. There is no demonstrated pleural abnormality. Normal size heart. Normal mediastinum and cynthia. Normal visualized pulmonary arteries. Normal visualized aortic arch and descending thoracic aorta. Dorsal spine and shoulders demonstrate degenerative change. Normal visualized ribs, and clavicles.. There is no demonstrated abnormality of the visualized soft tissue structures of the upper abdomen. RAD/Chest PA and Lateral IMPRESSION: Elevated right hemidiaphragm and possible mild subsegmental atelectasis at the right base Electronically Signed: Rafi Bajwa MD at 17:03 EST ,
[2024-07-27 17:01] LABS: Troponin-I HS 5 pg/mL (3.0-54.0)
[2024-07-27 17:19] VITALS: O2SAT 93
[2024-07-27 17:23] LABS: Bedside Glucose 360 mg/dL (74-106)
--- NOTE | 2024-07-27 17:34 | CT_ITS ---
STUDY: CTA CHEST REASON FOR EXAM: Female, 64 years old. dyspnea RADIATION DOSAGE (If Supplied By Facility): CTDIvol = ( 15.03 ) mGy, DLP = ( 493.06 ) mGycm TECHNIQUE: The examination was performed with the intravenous administration of IV 100mL Isovue-370. Post-processing of the angiographic images was performed, with multiplanar reformation and 3D reconstruction. Individualized dose optimization techniques were used for this CT. COMPARISON: None. FINDINGS: Normal enhancement of the main pulmonary artery and right and left pulmonary arteries. Normal enhancement of the bilateral peripheral pulmonary arteries. There is no demonstrated pulmonary embolism. Normal thoracic aorta and visualized great vessels. There is no demonstrated aortic dissection. Heart is enlarged. There is minor coronary artery calcification Normal mediastinum. Normal hilar regions. Normal visualized trachea and bronchi. The lungs are well expanded. Minimal atelectasis within the dependent portion of left lower lobe. No focal infiltration or pulmonary nodule Normal pleura. Normal chest wall structures. Dorsal spine demonstrates arthritic changes Nonspecific enlarged fatty infiltrated liver CT/CTA Chest W/WO Contrast IMPRESSION: Minimal atelectasis within the dependent portion of left lower lobe. No acute cardiopulmonary pathology. No evidence for pulmonary embolus Electronically Signed: Rafi Bajwa MD at 18:45 EST ,
--- NOTE | 2024-07-27 17:35 | ED.RN ---
O2 was 88-90% while ambulating without O2. Physician and PA notified.
[2024-07-27 19:13] VITALS: BP 142/65; PULSE 67; RESP 16; TEMP 35.7; O2SAT 93
--- NOTE | 2024-07-27 19:16 | PCM.HP.STD ---
HPI - General General Date of Admission: 07/27/24 Date of Service: 07/27/24 Chief Complaint: Fatigue with hypoxia HPI Narrative FLEX WOOTEN, is a 64 F who presented to [facility] ED on 07/27/2024 with 1 week history of worsening bilateral leg cramping with restlessness. Physical exam in the ED was largely unremarkable and lab workup was benign aside from hyperglycemia. However, patient was found to be hypoxic at rest in the 86 to 90% range with drop in saturation with ambulation. Chest x-ray was unremarkable and CTA chest showed no PE and no other concerning findings. Patient wears a CPAP at night with 2 L oxygen bleed in but has never worn oxygen during the day. Given this hypoxia, hospitalist was contacted for admission. I saw the patient at bedside in the ED, was present. Patient was sitting in bedside chair comfortably, conversing normally, in no acute distress. States she has felt better generally since being placed on supplemental oxygen. She currently denies any significant leg pain or cramping. She does deny any shortness of breath at rest or with exertion. Denies any recent upper respiratory illnesses. She is a non-smoker. No other acute concerns at this time. Importantly, patient follows closely with outpatient psychiatry and endocrinology. She was hospitalized here back in late January for a chronic ulcer of the left great toe requiring a podiatric procedure. She then went to the TCU on discharge for 2 weeks given need for nonweightbearing status. Per patient her toe has healed well but she has gained 30 to 40 pounds since then. Her blood sugar control has improved over the last few months with A1c 8.1% on 06/06 but this is also coincided with weight gain. She was started on Ozempic at lowest dose in early May but has not had a noticeable difference in appetite suppression to this point. Patient is currently on lorazepam 1 mg 3 times daily as needed for anxiety as well as oxycodone?acetaminophen 5-325 mg twice daily as needed for chronic pain. She has been filling these prescriptions regularly and takes both medications about scheduled each day. I discussed with the patient that given her benign pulmonary workup in the ED and several week history of ongoing fatigue, her hypoxia is likely chronic. Based on her history above, I suspect that her significant weight gain recently along with taking multiple medications that reduce respiratory drive are large contributors to her baseline hypoxia. She and were understanding of this and thankful for a possible explanation for how she has been feeling recently. She is agreeable to wearing supplemental oxygen at home but hopes to wean off oxygen in the future with weight loss and possible medication changes after discussion with her psychiatrist. 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 Hallux rigidus, left foot MRSA infection Uses wheelchair Walker as ambulation aid High cholesterol CPAP (continuous positive airway pressure) dependence Sleep apnea Hypothyroidism Anxiety disorder, unspecified Chronic pain Depressive 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 Obesity hypoventilation syndrome Obesity Normal stress echocardiogram Wears glasses PTSD (post-traumatic stress disorder) Depression Anxiety Thyroid disease Insulin dependent diabetes mellitus Ambulates with cane Fibromyalgia Arthritis DVT (deep venous thrombosis) High cholesterol Migraine headache Back pain Gait instability Syncope Dietary restriction History of diverticulitis Gastric reflux Former smoker ASV (adaptive servo-ventilation) use counseling On home oxygen therapy Shortness of breath on exertion Leg cramps History of pain when walking History of edema History of stress test Hypertension Implantable intrathecal infusion pump present Mixed connective tissue disease Osteoarthritis History of DVT (deep vein thrombosis) History of pulmonary embolus (PE) Atrophic vaginitis Bone spur Osteoarthritis calcium calcifications Mixed connective tissue disease History of neuropathy History of spinal stenosis History of diabetes mellitus Acromioclavicular arthrosis Strain of shoulder, left Neck pain Limb weakness Difficulty balancing Fatigue Shoulder pain Gastroesophageal reflux disease DJD (degenerative joint disease) of lumbar spine Home Medications ?Medication ?Instructions ?Recorded ?Last Taken ?Type omeprazole 40 mg capsule,delayed 40 mg PO DAILY GERD 08/30/13 02/20/24 History release trazodone 100 mg tablet 100 mg PO QHS mood 08/30/13 02/19/24 History levothyroxine 50 mcg tablet 50 mcg PO DAILY thyroid 10/21/17 09/15/22 History simvastatin 20 mg tablet 20 mg PO DAILY cholesterol 10/21/17 02/20/24 History atenolol 25 mg tablet 25 mg PO DAILY heart 05/18/19 02/18/24 History methotrexate sodium 2.5 mg tablet 20 mg PO FR fibromyalgia 08/19/20 09/10/22 History leucovorin calcium 10 mg tablet 5 mg PO FR supplement 12/08/20 09/10/22 History cholecalciferol (vitamin D3) 25 25 mcg PO DAILY supplement 09/13/22 09/15/22 History mcg (1,000 unit) capsule lisinopril 20 mg tablet 20 mg PO DAILY blood pressure #30 09/17/22 Unknown Rx tabs gabapentin 100 mg capsule 100 mg PO TID nerve pain 90 days 09/07/23 02/20/24 13:30 Rx #270 caps hydroxyzine pamoate 50 mg capsule 50 mg PO QHS mood #30 caps 09/07/23 Unknown Rx clonidine HCl 0.1 mg tablet 0.1 mg PO Q8H PRN PRN 03/03/24 02/20/24 13:30 Rx Anxiety/tremors #1 TAB folic acid 1 mg tablet 1 mg PO BREAKFAST #30 tabs 03/03/24 Unknown Rx insulin glargine-yfgn 100 unit/mL 40 unit (0.4 mL) subcut BID #8 pens 03/03/24 Unknown Rx (3 mL) subcutaneous pen insulin lispro 100 unit/mL See Rx Instructions .Route 03/03/24 Unknown Rx subcutaneous pen (Humalog KwikPen .COMPLEX diabetes #15 mL (U-100) Insulin) escitalopram oxalate 20 mg tablet 20 mg PO DAILY mood #90 tabs 03/26/24 Unknown Rx blood-glucose sensor (FreeStyle #6 ea 04/02/24 Unknown Rx Prema 3 Sensor device) lorazepam 1 mg tablet 1 mg PO TID mood 05/07/24 Unknown History Ozempic 0.25 mg or 0.5 mg (2 mg/3 0.5 mg (0.736 mL) subcut QWEEK #3 06/07/24 Unknown Rx mL) subcutaneous pen injector mL (semaglutide) oxycodone-acetaminophen 5 mg-325 1 tab PO BID 07/27/24 Unknown History mg tablet tizanidine 4 mg tablet 4 mg PO TID 07/27/24 Unknown History Allergy/AdvReac Type Severity Reaction Status Date / Time niacin Allergy Itching Verified 07/27/24 14:33 venlafaxine AdvReac Severe Vomiting Verified 07/27/24 14:33 metformin AdvReac Intermediate Diarrhea Verified 07/27/24 14:33 cephalexin (From Keflex) AdvReac Other Verified 07/27/24 14:33 Family History Sister Breast cancer Diabetes Kidney disease Other Arthritis Heart disease Surgical History History of bunionectomy of both great toes History of lumbar fusion History of total right knee replacement Hx of surgical procedure Hx of arthroscopic knee surgery History of carpal tunnel release Hx of hysterectomy History of back surgery Hx of total knee replacement hx of plantar fasciotomy Social History household members: spouse Smoking Status: Former smoker alcohol intake: never substance use type: does not use caffeine: No what type of physical activity do you participate in: none seatbelt use: always do you feel safe at home: Yes additional social history: [employer] at [employer] Patient is disabled ROS Constitutional Constitutional: Reports fatigue; Denies chills, fever(s) or weakness Eyes Eyes: Denies change in vision Cardiovascular Cardiovascular: Denies chest pain, dyspnea on exertion or lightheadedness Respiratory/Chest Respiratory/Chest: Denies cough, shortness of breath at rest, shortness of breath with exertion or wheezing Gastrointestinal Gastrointestinal: Denies abdominal pain Musculoskeletal Musculoskeletal: Denies arthralgias or myalgias Neurologic Neurologic: Denies dizziness or headache(s) Vital Signs Vital Signs Vital Signs: 07/27/24 14:32 07/27/24 16:05 07/27/24 16:11 Temperature 96.3 F L Temperature Source Temporal Pulse Rate 85 67 Respiratory Rate 16 Blood Pressure 115/73 142/65 H Blood Pressure Mean 87 90 Pulse Ox 92 86 93 Oxygen Delivery Method Room Air Room Air Oxygen Flow Rate (L/min) 2 07/27/24 19:13 Temperature 96.3 F L Temperature Source Pulse Rate 67 Respiratory Rate 16 Blood Pressure 142/65 H Blood Pressure Mean 90 Pulse Ox 93 Oxygen Delivery Method Oxygen Flow Rate (L/min) Weight Weight: 117.4 kg Body Mass Index (BMI) 44.4 Physical Exam Const alert, oriented x3 and no apparent distress Constitutional Narrative: Elderly female, morbidly obese, mildly fatigued appearing, otherwise sitting up comfortably in bedside chair, conversing normally, no acute distress. General Appearance: cooperative and comfortable HEENT normocephalic, head/scalp atraumatic, hearing grossly normal bilaterally, nasal mucous membranes and turbinates normal and moist oral mucous membranes Eyes PERRL, EOMs intact bilaterally and conjunctivae normal Neck full ROM Chest inspection of chest normal Resp normal respiratory effort and no use of accessory muscles Resp Narrative: Breathing comfortably on 2 L nasal cannula at rest with oxygen saturations in the low 90s. Diminished breath sounds bilaterally throughout likely due to body habitus. No wheezing or crackles noted. Cardio regular rate, regular rhythm, no murmurs and peripheral pulses 2+ throughout GI normal to inspection, nondistended, normoactive bowel sounds, soft to palpation, non-tender and non-distended Back/Spine normal ROM Extremity normal to inspection, full ROM and no pedal edema Skin no rashes or lesions noted Psych mental status grossly normal Results Lab / Micro Data 07/27/24 14:54 07/27/24 14:54 Labs: Laboratory Results - last 24 hr 07/27/24 14:54: WBC 7.6, RBC 4.92, Hgb 14.2, Hct 44.6, MCV 90.7, MCH 28.9, MCHC 31.8 L, RDW Std Deviation 44.1 H, RDW Coeff of Mouna 13.5, Plt Count 234, MPV 9.3, Immature Gran % (Auto) 0.500, Neut % (Auto) 64.3, Lymph % (Auto) 27.5, Carbon % (Auto) 5.5, Eos % (Auto) 1.8, Baso % (Auto) 0.4, Absolute Neuts (auto) 4.9, Absolute Lymphs (auto) 2.09, Nucleated RBC % 0, Sodium 135 L, Potassium 4.6, Chloride 99, Carbon Dioxide 30.0, Anion Gap 7, BUN 14, Creatinine 1.00, Estim Creat Clear Calc 69.70, Est GFR (MDRD) Af Amer 71, Est GFR (MDRD) Non-Af 59 L, BUN/Creatinine Ratio 14.0, Glucose 421 H, Calcium 8.9 07/27/24 16:32: Troponin I High Sens 5 07/27/24 17:06: POC Glucose 360 H Imaging Radiology Impression Chest X-Ray 07/27/24 16:40 IMPRESSION: Elevated right hemidiaphragm and possible mild subsegmental atelectasis at the right base Electronically Signed: Rafi Bajwa MD at 17:03 EST Reading Location ID and State: [facility] / [place] Tel , Service support , Chest CTA 07/27/24 17:34 IMPRESSION: Minimal atelectasis within the dependent portion of left lower lobe. No acute cardiopulmonary pathology. No evidence for pulmonary embolus Electronically Signed: Rafi Bajwa MD at 18:45 EST Reading Location ID and State: [facility] / [place] Tel [phone], Service support , Assessment & Plan Assessment/Plan (1) Hypoxia: (2) Diabetes mellitus with hyperglycemia: PLAN: Plan Patient is a 64-year-old female who presented [facility] ED on 07/27/2024 with bilateral leg pain and cramping. Workup was benign but patient was found to be hypoxic at rest and with exertion and was admitted for further management. 1. Hypoxia ? Admit [facility]. Hypoxic on room air to mid 80s with mild drop with exertion. CTA chest with no PE and no other concerning findings. Suspect patient has been chronically hypoxic for the last few months with multifactorial etiology of recent significant weight gain with morbid obesity and medications that reduce respiratory drive. Oxygen qualification testing ordered for tomorrow morning and presume patient will need supplemental oxygen on discharge. No further respiratory workup needed and patient should be fine for discharge home tomorrow after qualifying for home oxygen. 2. Leg pain with cramping ? Unclear etiology but likely related to her chronic pain with fibromyalgia with diabetic neuropathy contributing. No leg swelling or tenderness noted on exam. Does have history of left toe ulceration requiring podiatry procedure in January but no concerning skin findings or evidence of cellulitis at this time. Treatment as noted below. 3. Type 2 diabetes mellitus with hyperglycemia ? Follows with outpatient endocrinology. Blood glucose 421 on admit. Patient notably has had improvement in blood sugars with A1c 8.1% on 06/06, down from 10.4% on 04/02. Current home regimen of Lantus 44 units at night and Humalog 35 units with meals with sliding scale insulin as needed. Also on Ozempic weekly. Will treat with Lantus 40 units at night and Humalog 20 units with meals plus sliding scale insulin while inpatient. 4. Anxiety/depression ? Follows with outpatient psychiatry. Continue home lorazepam 3 times daily as needed, escitalopram, hydroxyzine at night, trazodone at night and clonidine as needed while inpatient. 5. Chronic pain with fibromyalgia ? Continue home oxycodone?acetaminophen twice daily as needed and gabapentin. 6. Chronic debility ? Lives at home with , uses walker at baseline and has wheelchair available to her as well. No inpatient therapy needs, okay for discharge home with . Chronic medical conditions: ? Morbid obesity: BMI 43 on admit. Encouraged lifestyle modifications. Complicates hospital course, care and prognosis. ? SEDA: Continue home CPAP with 2 L oxygen bleed in. ? Hypertension: Continue home atenolol and lisinopril. ? Hyperlipidemia: Continue home statin. ? Hypothyroidism: Continue home Synthroid. ? GERD: Continue home PPI. DVT prophylaxis: Lovenox twice daily CODE STATUS: Full code, verified Expected disposition: Home, 1 to 2 days Total clinical time spent by myself addressing the patient's medical issues, reviewing all the data, and collaborating with patient's care team: 55 minutes. Charges/Coding Visit Charges Inpatient E&M: 26440 Init Hosp L2
[2024-07-27 20:03] VITALS: BMI 43.4
[2024-07-27 20:11] VITALS: BP 118/51; PULSE 77; RESP 19; TEMP 36.7; O2SAT 94
[2024-07-27] MEDS: hydrOXYzine PAM 25 MG Capsule 50 MG PO (21:03)
[2024-07-27] MEDS: Atorvastatin Calcium 10 MG Tablet PO (21:03)
[2024-07-27] MEDS: Gabapentin 100 MG Capsule PO (21:03)
[2024-07-27] MEDS: traZODone 100 MG Tablet PO (21:05)
[2024-07-27] MEDS: Insulin Glargine-YFGN 100 UNIT/ML Pen 40 UNIT SC (21:05)
[2024-07-27] MEDS: Insulin Lispro 100 UNIT/ML INSULN.PEN SC (21:08)
[2024-07-27] MEDS: HYDROcodone Bitartrate/Apap 5/325 Tablet PO (21:09)
[2024-07-27 23:27] LABS: Bedside Glucose 290 mg/dL (74-106)
[2024-07-28 02:11] VITALS: BP 116/63; PULSE 66; RESP 16; TEMP 35.7; O2SAT 96
[2024-07-28] MEDS: Acetaminophen 325 MG Tablet 650 MG PO (02:59)
[2024-07-28] MEDS: Levothyroxine 50 MCG Tablet PO (06:32)
[2024-07-28 06:35] VITALS: O2SAT 94
--- NOTE | 2024-07-28 07:20 | PN.HOSP_ITS ---
Reason for Visit Reason for Visit: Diagnoses Type 2 diabetes mellitus with hyperglycemia (07/27/24) Hypoxemia (07/27/24) Subjective Subjective Denies shortness of breath. Complains of burning pain in posterior legs. Objective Data Objective Data Vital Signs: Vital Signs Temp Pulse Resp BP Pulse Ox O2 Del Method O2 Flow Rate 35.7 C L 66 16 116/63 94 CPAP 2 07/28/24 02:11 07/28/24 02:11 07/28/24 02:11 07/28/24 02:11 07/28/24 06:35 07/28/24 07:03 07/28/24 02:11 FiO2 96 07/28/24 07:03 Oxygen Flow Rate (L/min) 2 Oxygen Delivery Method CPAP Weight: 114.8 kg Body Mass Index (BMI) 43.4 Intake & Output: Intake and Output for Last 24 Hours 07/26/24 07/27/24 07/28/24 23:59 23:59 23:59 Intake Total 400 / 400 Balance 400 / 400 Lab / Micro Data 07/27/24 14:54 07/27/24 14:54 Labs: Laboratory Results - last 24 hr 07/27/24 14:54: WBC 7.6, RBC 4.92, Hgb 14.2, Hct 44.6, MCV 90.7, MCH 28.9, MCHC 31.8 L, RDW Std Deviation 44.1 H, RDW Coeff of Mouna 13.5, Plt Count 234, MPV 9.3, Immature Gran % (Auto) 0.500, Neut % (Auto) 64.3, Lymph % (Auto) 27.5, [place] % (Auto) 5.5, Eos % (Auto) 1.8, Baso % (Auto) 0.4, Absolute Neuts (auto) 4.9, Absolute Lymphs (auto) 2.09, Nucleated RBC % 0, Sodium 135 L, Potassium 4.6, Chloride 99, Carbon Dioxide 30.0, Anion Gap 7, BUN 14, Creatinine 1.00, Estim Creat Clear Calc 69.70, Est GFR (MDRD) Af Amer 71, Est GFR (MDRD) Non-Af 59 L, BUN/Creatinine Ratio 14.0, Glucose 421 H, Calcium 8.9 07/27/24 16:32: Troponin I High Sens 5 07/27/24 17:06: POC Glucose 360 H 07/27/24 21:06: POC Glucose 290 H Radiography Diagnostic Testing: Radiology Impression Chest X-Ray 07/27/24 16:40 IMPRESSION: Elevated right hemidiaphragm and possible mild subsegmental atelectasis at the right base Electronically Signed: Rafi Bajwa MD at 17:03 EST , Chest CTA 07/27/24 17:34 IMPRESSION: Minimal atelectasis within the dependent portion of left lower lobe. No acute cardiopulmonary pathology. No evidence for pulmonary embolus Electronically Signed: Rafi Bajwa MD at 18:45 EST , Physical Exam Const alert and no apparent distress HEENT head/scalp atraumatic and moist oral mucous membranes Neck no lymphadenopathy and supple Resp normal respiratory effort, no retractions, no use of accessory muscles and clear to auscultation bilaterally Cardio regular rate, regular rhythm, S1 normal heart sound and S2 normal heart sound GI normal to inspection, nondistended, normoactive bowel sounds and soft to palpation Assessment & Plan Assessment/Plan (1) Hypoxia: (2) Diabetes mellitus with hyperglycemia: PLAN: Plan Hypoxia * likely multifactorial: OHS, SEDA, chonic narcotic use (OARRS reviewed and she receives Percocet and hydromorphone power from Dr. Trejo) and lorazepam. * home oxygen evaluation. * CTA chest reviewed and is unremarkable. Leg cramping * probably related with FM and diabetic neuropathy. * already on gabapentin * CT showed spinal stenosis, most prominent at L2-3 * Start steroids, follow up with spine surgery. Chronic conditions: * Type 2 diabetes mellitus with hyperglycemia: uncontrolled. Pt unable to get Prema so has not taken her insulin. She is open to using her glucometer? Follows with outpatient endocrinology. Blood glucose 421 on admit. Patient notably has had improvement in blood sugars with A1c 8.1% on 06/06, down from 10.4% on 04/02. Current home regimen of Lantus 44 units at night and Humalog 35 units with meals with sliding scale insulin as needed. Also on Ozempic weekly. Will treat with Lantus 40 units at night and Humalog 20 units with meals plus sliding scale insulin while inpatient. * Anxiety/depression? Follows with outpatient psychiatry. Continue home lorazepam 3 times daily as needed, escitalopram, hydroxyzine at night, trazodone at night and clonidine as needed while inpatient. * Chronic pain with fibromyalgia? Continue home oxycodone?acetaminophen twice daily as needed and gabapentin. * Chronic debility? Lives at home with , uses walker at baseline and has wheelchair available to her as well. No inpatient therapy needs, okay for discharge home with . * obesity class III: BMI 43 on admit. Encouraged lifestyle modifications. Complicates hospital course, care and prognosis. * SEDA: Continue home CPAP with 2 L oxygen bleed in. * Hypertension: Continue home atenolol and lisinopril. * Hyperlipidemia: Continue home statin. * Hypothyroidism: Continue home Synthroid. * GERD: Continue home PPI. DVT prophylaxis: Lovenox twice daily CODE STATUS: Full code, verified Charges/Coding Visit Charges Inpatient E&M: 66380 Subs Hosp L2
[2024-07-28 07:44] VITALS: BP 167/77; PULSE 79; RESP 18; TEMP 37.1; O2SAT 93
[2024-07-28] MEDS: Escitalopram Oxalate 20 MG Tablet PO (08:01)
[2024-07-28] MEDS: Pantoprazole Sodium 40 MG Tablet PO (08:01)
[2024-07-28] MEDS: Folic Acid 1 MG Tablet PO (08:01)
[2024-07-28] MEDS: Cholecalciferol (VIT D3) 25 MCG TABLET (1,000 UNITS) PO (08:01)
[2024-07-28] MEDS: Lisinopril 20 MG Tablet PO (08:01)
[2024-07-28] MEDS: Atenolol 25 MG Tablet PO (08:01)
[2024-07-28] MEDS: Enoxaparin 40 MG/0.4 ML Syringe SC (08:02)
[2024-07-28] MEDS: HYDROcodone Bitartrate/Apap 5/325 Tablet PO ×2 (08:10→17:47)
[2024-07-28] MEDS: Gabapentin 100 MG Capsule PO ×3 (08:10→16:46)
[2024-07-28] MEDS: Insulin Lispro 100 UNIT/ML INSULN.PEN SC ×3 (09:21→17:39)
[2024-07-28] MEDS: Insulin Lispro 100 UNIT/ML INSULN.PEN 20 UNIT SC ×3 (09:22→17:40)
--- NOTE | 2024-07-28 09:27 | CT_ITS ---
EXAM: CT LUMBAR SPINE WITHOUT INTRAVENOUS CONTRAST CLINICAL INDICATION: radicular back pain TECHNIQUE: Helically acquired images were obtained of the lumbar spine without intravenous contrast. 2D reformats were reviewed. This CT exam was performed using one or more of the following dose reduction techniques: automated exposure control, adjustment of the mA and/or kV according to patient size, and/or use of iterative reconstruction technique. COMPARISON: No relevant prior studies available. FINDINGS: VERTEBRAE: Moderate to severe spinal stenosis at the L2-3 level related to the bony hypertrophy of the vertebral body and facet joints. Levoscoliosis centered at the L2-3 level with Mitchell angle of 25 degrees. Mild anterior listhesis of L2 on L3 related to underlying degenerative change. No acute fracture. Interpedicular screw fixation at L4 and L5 bilaterally on the right at L3 associated with posterior laminectomy. DISCS/SPINAL CANAL/NEURAL FORAMINA: Multilevel disc space narrowing and prominent multilevel vertebral body hypertrophy. Prominent multilevel facet arthropathy. Multilevel disc space narrowing most pronounced at the L2-3 level. VASCULATURE: Visualized abdominal aorta is not dilated. LYMPH NODES: Normal. No retroperitoneal adenopathy. TUBES, LINES AND DEVICES: Intraspinal stimulator wire inserted at the L1-2 level extending into the thoracic spinal canal. CT/Spine Lumbar without Contrast IMPRESSION: Extensive degenerative and postoperative changes. Significant spinal stenosis at the L2-3 level as described. Electronically Signed: Dru Stanford MD at 11:46 EST ,
[2024-07-28 10:53] LABS: Bedside Glucose 233 mg/dL (74-106)
--- NOTE | 2024-07-28 11:27 | CASEMGMT ---
Met with pt to complete BURNHAM form. BURNHAM form explained to pt at this time who voiced understanding and signed form. Original form placed in pt?s chart and copy provided to the pt. This SAM RUSH also discussed DC planning with the pt. Pt states that she lives with her and that she is independent. 6-Click score is 24. Pt states that she wears 2L of Oxygen @ HS only via CPAP through [employer]. Pt states that she has a concentrator, portable tanks, and a pulse ox. Pt states that she feels safe returning home with her at time of Dc and that he can bring in her portable tank at time of DC if needed. Pt denies HH or OP Tx needs. Pt denies further questions or concerns at this time. Jose Castellanos RN, CM
[2024-07-28 12:01] LABS: Bedside Glucose 202 mg/dL (74-106)
[2024-07-28] MEDS: tiZANidine HCl 2 MG Tablet 4 MG PO (12:51)
[2024-07-28] MEDS: FLU VACCINE **HIGH DOSE** TV 24-25 180 MCG/0.5 ML SYRINGE IM (12:53)
[2024-07-28 13:12] VITALS: O2SAT 93; O2SAT 97
[2024-07-28] MEDS: predniSONE 20 MG Tablet 40 MG PO (13:56)
[2024-07-28 14:00] VITALS: BP 124/61; PULSE 74; RESP 18; TEMP 36.8; O2SAT 93
--- NOTE | 2024-07-28 14:33 | DS.PCM_ITS ---
Providers Date of Admission: 07/27/24 Primary Care Physician: Dr. Rica Padgett DO Reason For Visit: HYPOXIA Diagnosis Discharge Diagnosis (1) Hypoxia: Status: Acute Code(s): R09.02 - Hypoxemia (2) Diabetes mellitus with hyperglycemia: Status: Acute Code(s): E11.65 - Type 2 diabetes mellitus with hyperglycemia Plan Hypoxia * likely multifactorial: OHS, SEDA, chonic narcotic use (OARRS reviewed and she receives Percocet and hydromorphone power from Dr. Trejo) and lorazepam. * home oxygen evaluation. * CTA chest reviewed and is unremarkable. * Patient was ambulated and was 97% on room air and 93% with ambulation on room air. Patient will not require oxygen upon discharge. Leg cramping possibly 2/2 spinal stenosis. * probably related with FM and diabetic neuropathy. * already on gabapentin * CT showed spinal stenosis, most prominent at L2-3 * Prednisone 40 mg daily for 5 days. * Her back surgery was back in the . Recommend that she follow up with spinal surgery. I informed her of our spinal surgeons here, she would like to follow up with the [facility] instead. Chronic conditions: * Type 2 diabetes mellitus with hyperglycemia: uncontrolled. Pt unable to get Prema so has not taken her insulin. She is open to using her glucometer? Follows with outpatient endocrinology. Blood glucose 421 on admit. Patient notably has had improvement in blood sugars with A1c 8.1% on 06/06, down from 10.4% on 04/02. Current home regimen of Lantus 44 units at night and Humalog 35 units with meals with sliding scale insulin as needed. Also on Ozempic weekly. Will treat with Lantus 40 units at night and Humalog 20 units with meals plus sliding scale insulin while inpatient. * Anxiety/depression? Follows with outpatient psychiatry. Continue home lorazepam 3 times daily as needed, escitalopram, hydroxyzine at night, trazodone at night and clonidine as needed while inpatient. * Chronic pain with fibromyalgia? Continue home oxycodone?acetaminophen twice daily as needed and gabapentin. * Chronic debility? Lives at home with , uses walker at baseline and has wheelchair available to her as well. No inpatient therapy needs, okay for discharge home with . * obesity class III: BMI 43 on admit. Encouraged lifestyle modifications. Complicates hospital course, care and prognosis. * SEDA: Continue home CPAP with 2 L oxygen bleed in. * Hypertension: Continue home atenolol and lisinopril. * Hyperlipidemia: Continue home statin. * Hypothyroidism: Continue home Synthroid. * GERD: Continue home PPI. DVT prophylaxis: Lovenox twice daily CODE STATUS: Full code, verified Medications at Discharge Home Medications omeprazole 40 mg capsule,delayed release 40 mg PO DAILY GERD 08/30/13 trazodone 100 mg tablet 100 mg PO QHS mood 08/30/13 levothyroxine 50 mcg tablet 50 mcg PO DAILY thyroid 10/21/17 simvastatin 20 mg tablet 20 mg PO DAILY cholesterol 10/21/17 atenolol 25 mg tablet 25 mg PO DAILY heart 05/18/19 methotrexate sodium 2.5 mg tablet 20 mg PO FR fibromyalgia 08/19/20 leucovorin calcium 10 mg tablet 5 mg PO FR supplement 12/08/20 cholecalciferol (vitamin D3) 25 mcg (1,000 unit) capsule 25 mcg PO DAILY supplement 09/13/22 lisinopril 20 mg tablet 20 mg PO DAILY blood pressure #30 tabs 09/17/22 gabapentin 100 mg capsule 100 mg PO TID nerve pain 90 days #270 caps 09/07/23 hydroxyzine pamoate 50 mg capsule 50 mg PO QHS mood #30 caps 09/07/23 clonidine HCl 0.1 mg tablet 0.1 mg PO Q8H PRN PRN Anxiety/tremors #1 TAB 03/03/24 folic acid 1 mg tablet 1 mg PO BREAKFAST #30 tabs 03/03/24 insulin lispro 100 unit/mL subcutaneous pen (Humalog KwikPen (U-100) Insulin) See Rx Instructions .Route .COMPLEX diabetes #15 mL 03/03/24 escitalopram oxalate 20 mg tablet 20 mg PO DAILY mood #90 tabs 03/26/24 blood-glucose sensor (FreeStyle Prema 3 Sensor device) #6 ea 04/02/24 lorazepam 1 mg tablet 1 mg PO TID mood 05/07/24 Ozempic 0.25 mg or 0.5 mg (2 mg/3 mL) subcutaneous pen injector (semaglutide) 0.5 mg (0.736 mL) subcut QWEEK #3 mL 06/07/24 oxycodone-acetaminophen 5 mg-325 mg tablet 1 tab PO BID 07/27/24 tizanidine 4 mg tablet 4 mg PO TID 07/27/24 insulin glargine-yfgn 100 unit/mL (3 mL) subcutaneous pen 52 unit subcut QHS diabetes 07/28/24 insulin lispro 100 unit/mL subcutaneous pen (Humalog KwikPen (U-100) Insulin) 35 unit subcut DAILY 07/28/24 lancets-blood glucose test strips-pen needles with gauze kit #1 ea 07/28/24 prednisone 20 mg tablet 40 mg (2 x 20 mg) PO DAILY #8 tabs 07/28/24 Hospital Course Operations None Procedures None Summary of Care Provided Minutes Spent on Discharge: 40 Weight / BMI Weight Weight: 114.8 kg Body Mass Index (BMI) 43.4 ABG / Lab / Microbiology Data 07/27/24 14:54 07/27/24 14:54 Laboratory: Laboratory Results - last 24 hr 07/27/24 16:32: Troponin I High Sens 5 07/27/24 17:06: POC Glucose 360 H 07/27/24 21:06: POC Glucose 290 H 07/28/24 07:36: POC Glucose 233 H 07/28/24 11:42: POC Glucose 202 H Radiography Diagnostic Testing: Radiology Impression Chest X-Ray 07/27/24 16:40 IMPRESSION: Elevated right hemidiaphragm and possible mild subsegmental atelectasis at the right base Electronically Signed: Rafi Bajwa MD at 17:03 EST , Chest CTA 07/27/24 17:34 IMPRESSION: Minimal atelectasis within the dependent portion of left lower lobe. No acute cardiopulmonary pathology. No evidence for pulmonary embolus Electronically Signed: Rafi Bajwa MD at 18:45 EST , Lumbar Spine CT 07/28/24 09:27 IMPRESSION: Extensive degenerative and postoperative changes. Significant spinal stenosis at the L2-3 level as described. Electronically Signed: Dru Stanford MD at 11:46 EST , D/C Instructions Discharge Diet: 2000 Calorie Control Diet DC O2, CPAP, BIPAP Needs PSN CPAP & BiPAP: BiPAP & CPAP Settings per PSN Fraction of Inspired Oxygen ( 96 07/28/24 07:03 FIO2) Additional Home O2 Discharge instructions: No DC home with Oxygen: No Meaningful Use Info Meaningful Use Meaningful Use Diagnoses (Choose all that apply): None applicable Ischemic Stroke Statin Dosing Therapy Reference: STATIN DOSE THERAPY REFERENCE: * Patients > 75 years receive moderate or high dose statin therapy. * Patients 75 years or YOUNGER should receive HIGH intensity statin dose unless contraindicated. You will be required to document reason for non-treatment if statin daily dose does not meet guidelines. HIGH DOSE STATIN THERAPY DAILY Atorvastatin > than or = to 40 mg Rosuvastatin > than or = to 20 mg Amlodipine + Atorvastatin > than or = to 2.5/40 mg Ezetimibe + Simvastatin 10/80 mg Simvastatin 80mg Discharge Plan Admission Admit Date/Time: 07/27/24 19:17 Primary Reason for Your Visit: hypoxia. Attending Provider: Tre Anderson Primary Care Provider: Rica Padgett Consulting Providers: David Caruso Additional Instructions / Restrictions: Check your sugars frequently and follow-up with your primary care doctor. You could also discuss with them if they think changing your gabapentin or restless legs medication would be appropriate for your burning leg symptoms. Follow up with the [facility] for evaluation of your back and spinal stenosis. It is unclear if the burning in your legs is due to your back, but your CT scan showed spinal stenosis. Discharge Orders/Prescriptions Prescriptions: New (DME) lancet-gluc grjto-[id number]-[id number] Kit See Rx Instructions .Route Qty: 1 0RF Rx Instructions: As directed prednisone 20 mg tablet 40 mg PO DAILY Qty: 8 0RF Continued methotrexate sodium 2.5 mg tablet 20 mg PO FR cholecalciferol (vitamin D3) 25 mcg (1,000 unit) capsule 25 mcg PO DAILY gabapentin 100 mg capsule 100 mg PO TID 90 Days Qty: 270 2RF hydroxyzine pamoate 50 mg capsule 50 mg PO QHS Qty: 30 2RF lorazepam 1 mg tablet 1 mg PO TID omeprazole 40 MG capsule 40 mg PO DAILY Patient Comments: ACID REFLEX trazodone 100 MG tablet 100 mg PO QHS Patient Comments: DEPRESSION levothyroxine 50 MCG tablet 50 mcg PO DAILY simvastatin 20 MG tablet 20 mg PO DAILY atenolol 25 MG tablet 25 mg PO DAILY leucovorin calcium 10 MG tablet 5 mg PO FR lisinopril 20 mg Tablet 20 mg PO DAILY Qty: 30 0RF folic acid 1 mg Tablet 1 mg PO BREAKFAST Qty: 30 0RF clonidine HCl 0.1 mg tablet 0.1 mg PO Q8H PRN PRN (Reason: Anxiety/tremors) Qty: 1 0RF Patient Comments: take 1 tablet by mouth three times a day if needed for anxiety or TREMOR(S) insulin lispro [Humalog KwikPen Insulin] 100 unit/mL Insulin Pen See Rx Instructions .ROUTE .COMPLEX Qty: 15 0RF Rx Instructions: 10 with breakfast 16 with lunch 14 with supper tizanidine 4 mg tablet 4 mg PO TID oxycodone-acetaminophen 5-325 mg tablet 1 tab PO BID insulin lispro [Humalog KwikPen Insulin] 100 unit/mL insulin pen 35 unit subcut DAILY insulin glargine-yfgn 100 unit/mL (3 mL) Insulin Pen 52 unit subcut QHS escitalopram oxalate 20 mg tablet 20 mg PO DAILY Qty: 90 1RF (DME) FreeStyle Prema 3 Sensor Device See Rx Instructions .Route Qty: 6 1RF Rx Instructions: 1 sensor q 14 days Ozempic 0.25 mg or 0.5 mg (2 mg/3 mL) pen injector 0.5 mg subcut QWEEK Qty: 3 4RF Referrals / Follow Up: Rica Padgett DO [Primary Care Provider] - Within 2 Weeks Disposition Disposition (needs filled in before D/C Order can be placed): Home, Self Care Charges/Coding Visit Charges Inpatient E&M: 24488 Disch Hosp >30min
[2024-07-28 17:09] LABS: Bedside Glucose 200 mg/dL (74-106)
== END 2024-07-28 19:14 | disposition home or self-care (01) ==
LOC: ED 16:02 → MS3 19:33
PROVIDERS: Physician Assistant; Admitting Provider Hospitalist; Emergency Provider Emergency Medicine; PCP Family Medicine
DX: R09.02 Hypoxemia (principal); Z68.41 Body mass index [BMI] 40.0-44.9, adult; E11.65 Type 2 diabetes mellitus with hyperglycemia; Z79.4 Long term (current) use of insulin; E11.42 Type 2 diabetes mellitus with diabetic polyneuropathy; E66.813 Obesity, class 3; I10 Essential (primary) hypertension; R53.81 Other malaise; M79.661 Pain in right lower leg; Z87.891 Personal history of nicotine dependence; G47.00 Insomnia, unspecified; Z86.718 Personal history of other venous thrombosis and embolism; F43.10 Post-traumatic stress disorder, unspecified; M79.652 Pain in left thigh; E03.9 Hypothyroidism, unspecified; M79.7 Fibromyalgia; G47.33 Obstructive sleep apnea (adult) (pediatric); E78.00 Pure hypercholesterolemia, unspecified; M79.651 Pain in right thigh; M79.662 Pain in left lower leg; Z79.899 Other long term (current) drug therapy; Z79.890 Hormone replacement therapy; F32.A Depression, unspecified; F41.9 Anxiety disorder, unspecified; Z23 Encounter for immunization
CPT/HCPCS: 71046; 71275; 72131; 80048; 82962; 84484; 85025; 90662; 93005; 94668; 96372; 99221; 99284; Q9967; A4216; G0378

== ENCOUNTER 2024-10-12 12:58 | Emergency (ER) | payer MEDICARE, OTHER, SELFPAY ==
[2024-10-12 12:58] VITALS: BP 169/84; PULSE 86; RESP 16; TEMP 36.6; O2SAT 95
--- NOTE | 2024-10-12 13:28 | EX.ED.VIS.HA ---
HPI History of Present Illness Chief Complaint: Headache Informant: patient Onset/Context/Timing Onset: Days Context: Gradual Timing: Continuous Quality -Headache: Positive for Similar Prior Headaches and Sharp Location: By a temporal and forehead headache. Similar to prior migraines. Current Severity: Moderate Maximum Severity: Moderate Associated Symptoms/Injury Associated Symptoms: Positive for Nausea, Vomiting and Photophobia Injury - MCKEON: Negative for Direct Trauma, Fall or Assault Narrative Narrative: 64-year-old female history of diabetes, hypertension chronic back pain. History of prior migraines. States she has had a headache since Tuesday evening. Gradual onset bitemporal. Associated nausea vomiting. No fever. No head or neck trauma. She is on no blood thinners. Denies any weakness or numbness to her upper or lower extremities. Light makes headache worse. 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 Hallux rigidus, left foot MRSA infection Uses wheelchair Walker as ambulation aid High cholesterol CPAP (continuous positive airway pressure) dependence Sleep apnea Hypothyroidism Anxiety disorder, unspecified Chronic pain Depressive 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 Obesity hypoventilation syndrome Obesity Normal stress echocardiogram Wears glasses PTSD (post-traumatic stress disorder) Depression Anxiety Thyroid disease Insulin dependent diabetes mellitus Ambulates with cane Fibromyalgia Arthritis DVT (deep venous thrombosis) High cholesterol Migraine headache Back pain Gait instability Syncope Dietary restriction History of diverticulitis Gastric reflux Former smoker ASV (adaptive servo-ventilation) use counseling On home oxygen therapy Shortness of breath on exertion Leg cramps History of pain when walking History of edema History of stress test Hypertension Implantable intrathecal infusion pump present Mixed connective tissue disease Osteoarthritis History of DVT (deep vein thrombosis) History of pulmonary embolus (PE) Atrophic vaginitis Bone spur Osteoarthritis calcium calcifications Mixed connective tissue disease History of neuropathy History of spinal stenosis History of diabetes mellitus Acromioclavicular arthrosis Strain of shoulder, left Neck pain Limb weakness Difficulty balancing Fatigue Shoulder pain Gastroesophageal reflux disease DJD (degenerative joint disease) of lumbar spine Home Medications ?Medication ?Instructions ?Recorded ?Last Taken ?Type omeprazole 40 mg capsule,delayed 40 mg PO DAILY GERD 08/30/13 02/20/24 History release trazodone 100 mg tablet 100 mg PO QHS mood 08/30/13 02/19/24 History levothyroxine 50 mcg tablet 50 mcg PO DAILY thyroid 10/21/17 09/15/22 History simvastatin 20 mg tablet 20 mg PO DAILY cholesterol 10/21/17 02/20/24 History atenolol 25 mg tablet 25 mg PO DAILY heart 05/18/19 02/18/24 History methotrexate sodium 2.5 mg tablet 20 mg PO FR fibromyalgia 08/19/20 09/10/22 History leucovorin calcium 10 mg tablet 5 mg PO FR supplement 12/08/20 09/10/22 History cholecalciferol (vitamin D3) 25 25 mcg PO DAILY supplement 09/13/22 09/15/22 History mcg (1,000 unit) capsule lisinopril 20 mg tablet 20 mg PO DAILY blood pressure #30 09/17/22 Unknown Rx tabs hydroxyzine pamoate 50 mg capsule 50 mg PO QHS mood #30 caps 09/07/23 Unknown Rx clonidine HCl 0.1 mg tablet 0.1 mg PO Q8H PRN PRN 03/03/24 02/20/24 13:30 Rx Anxiety/tremors #1 TAB folic acid 1 mg tablet 1 mg PO BREAKFAST #30 tabs 03/03/24 Unknown Rx insulin lispro 100 unit/mL See Rx Instructions .Route 03/03/24 Unknown Rx subcutaneous pen (Humalog KwikPen .COMPLEX diabetes #15 mL (U-100) Insulin) lorazepam 1 mg tablet 1 mg PO TID mood 05/07/24 Unknown History oxycodone-acetaminophen 5 mg-325 1 tab PO BID 07/27/24 Unknown History mg tablet tizanidine 4 mg tablet 4 mg PO TID 07/27/24 Unknown History insulin glargine-yfgn 100 unit/mL 52 unit subcut QHS diabetes 07/28/24 Unknown History (3 mL) subcutaneous pen lancets-blood glucose test #1 ea 07/28/24 Unknown Rx strips-pen needles with gauze kit insulin lispro 100 unit/mL 40 unit (0.4 mL) subcut TIDWMEAL 08/20/24 Unknown Rx subcutaneous pen (Humalog KwikPen #108 mL (U-100) Insulin) escitalopram oxalate 20 mg tablet 20 mg PO DAILY mood #90 tabs 09/03/24 Unknown Rx gabapentin 100 mg capsule 100 mg PO TID nerve pain 90 days 09/03/24 Unknown Rx #270 caps blood-glucose sensor (FreeStyle #6 ea 09/21/24 Unknown Rx Prema 3 Plus Sensor device) sumatriptan succinate 25 mg tablet See Rx Instructions PO .COMPLEX 10/12/24 Unknown Rx (Imitrex) #10 tabs Allergy/AdvReac Type Severity Reaction Status Date / Time niacin Allergy Itching Verified 10/12/24 13:01 venlafaxine AdvReac Severe Vomiting Verified 10/12/24 13:01 metformin AdvReac Intermediate Diarrhea Verified 10/12/24 13:01 cephalexin (From Keflex) AdvReac Other Verified 10/12/24 13:01 Family History Sister Breast cancer Diabetes Kidney disease Other Arthritis Heart disease Surgical History History of bunionectomy of both great toes History of lumbar fusion History of total right knee replacement Hx of surgical procedure Hx of arthroscopic knee surgery History of carpal tunnel release Hx of hysterectomy History of back surgery Hx of total knee replacement hx of plantar fasciotomy Social History household members: spouse Smoking Status: Former smoker alcohol intake: never substance use type: does not use caffeine: No what type of physical activity do you participate in: none seatbelt use: always do you feel safe at home: Yes additional social history: [id number] at [employer] Patient is disabled ROS ROS ED ROS Narrative Headache with nausea and vomiting. Constitutional Constitutional ED: Denies chills or fever(s) Eyes Eyes: Denies blurry vision ENT ENT ED: Denies ear pain Cardiovascular Cardiovascular: Denies chest pain Respiratory/Chest Respiratory/Chest: Denies cough or dyspnea Gastrointestinal Gastrointestinal: Reports nausea and vomiting; Denies abdominal pain, constipation, diarrhea or melena Genitourinary Genitourinary ED: Denies dysuria or hematuria Musculoskeletal Musculoskeletal: Denies arthralgias or back pain Integumentary Denies abscess or Abrasions Neurologic Neurologic: Reports headache(s); Denies paresthesias or weakness Psychiatric Psychiatric: Denies anxiety Endocrine Endocrinology: Denies polydipsia Hematologic/Lymphatic Hematologic/Lymphatic: Denies easy bleeding Allergic/Immunologic Allergic/Immunologic ED: Denies mouth swelling EXAM Physical Exam Narrative Exam Narrative: Well-appearing six 4-year-old female. Sitting upright in darkened room. Spouse at bedside. H EENT exam pupils round reactive light. Extra motions are intact. Photophobic. No facial droop. Normal speech. No trauma to her face or scalp. Nontender no hematomas. Neck nontender no meningismus. No lymphadenopathy. Able to flex chin to chest. Lungs clear to auscultation bilaterally. Heart regular rhythm rate about 85 no murmur. Chest wall ribs nontender. Abdomen soft nontender. No peritoneal signs. Back nontender. Moving all 4 extremities. 5 out of 5 classroom assistant strength. Dorsi plantarflexion intact. Neurologic exam normal. NIH 0. Awake and alert. Answering questions following commands. Normal speech. Again no facial droop. Fingertip to nose within normal limits. No drift of either upper or lower extremities. Normal strength. Const Vital Signs: 10/12/24 12:58 10/12/24 15:00 Temperature 97.9 F Temperature Source Oral Pulse Rate 86 78 Respiratory Rate 16 14 Blood Pressure 169/84 H 109/79 Blood Pressure Mean 112 89 Pulse Ox 95 94 Oxygen Delivery Method Room Air Room Air Positive well nourished and well developed; Negative for cachectic, contractures or unkempt General Appearance ED: well developed and NAD; Negative for unkempt, cachectic, contractures, cyanotic, diaphoretic or pallor Nutritional Appearance: Negative for cachectic HEENT Reports normocephalic and moist mucous membranes atraumatic; Negative for trauma, tenderness, temporal artery tenderness or vesicular rash Face and Sinus: Negative for sinus tenderness Eyes PERRL and EOMs intact bilaterally General Eye ED: Negative for pale conjunctiva or scleral icterus Neck no lymphadenopathy, supple, no meningeal signs and no JVD Resp normal respiratory effort and clear to auscultation bilaterally Effort and Inspection: Negative for retractions Auscultation: Negative for rales, rhonchi, wheezes or diminished lung sounds Cardio regular rate, regular rhythm, S1 normal heart sound, S2 normal heart sound and no murmurs GI non-tender and non-distended Palpation: soft; Negative for tender or guarding Back/Spine no CVA tenderness General Back: Negative for CVA tenderness Cervical Spine: Negative for cervical spine tenderness Thoracic Spine / Upper Back: Negative for thoracic spinal tenderness Lumbar Spine / Lower Back: Negative for lumbar spinal tenderness Extremity normal to inspection and full ROM General Extremety ED: Negative for edema or tenderness General Extremity: Negative for edema Neuro oriented x3 and CN's II-XII intact bilaterally Sensorium / Orientation: awake, alert, oriented to person, oriented to place and oriented to time; Negative for orientation impaired or lethargic Coordination / Balance: [id number] test normal Speech: speech normal Motor Exam: strength 5/5 throughout Psych mental status grossly normal Appearance: Negative for unkempt Attitude: No agitated Mood & Affect: Negative for depressed, anxious or tearful Skin General Skin Exam: elasticity normal and turgor normal; Negative for jaundice or pallor Lesions: no lesions Rashes: no rashes MDM MDM MDM Narrative Medical decision making narrative: 64-year-old female history of migraine headaches. Has had a headache for the last 3 days. Exam otherwise on remarkable. Normal neurologic exam. She is on no blood thinners. She has had no fever. NIH is 0. I do not think she needs any imaging. I do not think she needs any labs. Should be treated with IV fluids, Toradol, Benadryl and Compazine and reassessed. Repeat exam at 3:50 PM patient had no significant change with the initial medications for her headache. Her neurologic exam remains normal and unchanged. She will be given for morphine and reassessed. Repeat exam patient doing well at 4:20 PM. Patient doing well. Headache resolved after 4 morphine. Neurologic exam remains normal. She will be discharged home. She will be written for an Imitrex prescription which has worked well for her in the past but she is now out of that medication. History & Record Review Discussion w/independent historian: Patient Additional record(s) reviewed:: Prior inpatient record, Prior outpatient record, Prior ED visit and Prior labs Discharge Plan Triage Chief Complaint: Headache ED Provider: Uday Stokes Dx/Rx/DC Orders Clinical Impression: Headache, migraine, Chronic pain, Diabetes, History of hypertension Instructions: ED, Migraine (Classical) Prescriptions: New sumatriptan succinate [Imitrex] 25 mg tablet See Rx Instructions .ROUTE .COMPLEX Qty: 10 0RF Rx Instructions: take 1 tab at onset of headache; if no relief may repeat 1 tab after at least 2 hrs; max = 4 tabs/24 hr No Action methotrexate sodium 2.5 mg tablet 20 mg PO FR cholecalciferol (vitamin D3) 25 mcg (1,000 unit) capsule 25 mcg PO DAILY hydroxyzine pamoate 50 mg capsule 50 mg PO QHS Qty: 30 2RF lorazepam 1 mg tablet 1 mg PO TID escitalopram oxalate 20 mg tablet 20 mg PO DAILY Qty: 90 1RF gabapentin 100 mg capsule 100 mg PO TID 90 Days Qty: 270 2RF omeprazole 40 MG capsule 40 mg PO DAILY Patient Comments: ACID REFLEX trazodone 100 MG tablet 100 mg PO QHS Patient Comments: DEPRESSION levothyroxine 50 MCG tablet 50 mcg PO DAILY simvastatin 20 MG tablet 20 mg PO DAILY atenolol 25 MG tablet 25 mg PO DAILY leucovorin calcium 10 MG tablet 5 mg PO FR lisinopril 20 mg Tablet 20 mg PO DAILY Qty: 30 0RF folic acid 1 mg Tablet 1 mg PO BREAKFAST Qty: 30 0RF clonidine HCl 0.1 mg tablet 0.1 mg PO Q8H PRN PRN (Reason: Anxiety/tremors) Qty: 1 0RF Patient Comments: take 1 tablet by mouth three times a day if needed for anxiety or TREMOR(S) insulin lispro [Humalog KwikPen Insulin] 100 unit/mL Insulin Pen See Rx Instructions .ROUTE .COMPLEX Qty: 15 0RF Rx Instructions: 10 with breakfast 16 with lunch 14 with supper tizanidine 4 mg tablet 4 mg PO TID oxycodone-acetaminophen 5-325 mg tablet 1 tab PO BID insulin glargine-yfgn 100 unit/mL (3 mL) Insulin Pen 52 unit subcut QHS (DME) lancet-gluc [id number]-hbqdqz-ecrdq Kit See Rx Instructions .Route Qty: 1 0RF Rx Instructions: As directed insulin lispro [Humalog KwikPen Insulin] 100 unit/mL insulin pen 40 unit subcut TIDWMEAL Qty: 108 1RF (DME) FreeStyle Prema 3 Plus Sensor Device See Rx Instructions .Route Qty: 6 1RF Rx Instructions: As directed Primary Care Provider: Rica Padgett Referrals: Rica Padgett, DO [Primary Care Provider] - 3-5 Days if not improving Activity Restrictions/Additional Instructions: Plenty of fluids and rest. Tylenol and/or Motrin for pain. Follow-up with your doctor if not improving return to emergency department feeling worse. If you develop a fever, intractable vomiting or headaches getting worse return. Print Language: Belarusian Disposition Disposition: Home, Self Care
[2024-10-12] MEDS: 0.9% Normal Saline (1000mL) 1,000 ML 1000 ML IV (13:45)
[2024-10-12] MEDS: Metoclopramide 10 MG/2 ML Vial IV (13:45)
[2024-10-12] MEDS: DiphenhydrAMINE 50 MG/ML Syringe IV (13:45)
[2024-10-12] MEDS: Ketorolac 15 MG/ML Vial IV (13:45)
[2024-10-12 15:00] VITALS: BP 109/79; PULSE 78; RESP 14; O2SAT 94
[2024-10-12] MEDS: Morphine 4 MG/ML Syringe IV (15:58)
[2024-10-12 16:22] VITALS: BP 137/75; PULSE 59; RESP 16; TEMP 36.6; O2SAT 100
== END 2024-10-12 16:25 | disposition home or self-care (01) ==
PROVIDERS: Emergency Provider Emergency Medicine; PCP Family Medicine; Referring Provider Emergency Medicine; Visit Provider Emergency Medicine
DX: G43.909 Migraine, unspecified, not intractable, without status migrainosus (principal); E11.42 Type 2 diabetes mellitus with diabetic polyneuropathy; Z79.4 Long term (current) use of insulin; E78.00 Pure hypercholesterolemia, unspecified; I10 Essential (primary) hypertension; M54.9 Dorsalgia, unspecified; G89.29 Other chronic pain; Z79.899 Other long term (current) drug therapy; Z87.891 Personal history of nicotine dependence
CPT/HCPCS: 96361; 96374; 96375; 99282

== ENCOUNTER 2024-10-15 13:06 | Emergency (ER) | payer MEDICARE, OTHER, SELFPAY ==
[2024-10-15 13:08] VITALS: BP 151/61; PULSE 83; RESP 18; TEMP 36.4; O2SAT 89
[2024-10-15 13:12] VITALS: BP 142/61; PULSE 69; RESP 16; TEMP 36.4; O2SAT 95
[2024-10-15 14:11] VITALS: BMI 45.7
[2024-10-15 14:12] VITALS: BP 142/61; PULSE 69; RESP 16; TEMP 36.4; O2SAT 95
--- NOTE | 2024-10-15 14:33 | EX.ED.VIS.HA ---
HPI <KENNY Otto - Last Filed: 10/15/24 18:55> History of Present Illness Chief Complaint: Headache Narrative Narrative: Patient presenting today due to a migraine that started on 10/12/2024. She reports that the pain was gradual in onset and has been gradually worsening over the past few days. She does have a history of migraines, she was seen here 3 days ago for her headache and was given a migraine cocktail that provided minimal relief, she was then given morphine that seem to help but did not completely resolve her headache. She was ultimately discharged home with a prescription for Imitrex. She reports that the Imitrex has not been helping her. She has had headaches like this in the past but the intensity and duration are worse this time. She reports photophobia and occasional nausea. She denies fevers, chills, neck pain, paresthesias, and head injury. 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 Hallux rigidus, left foot MRSA infection Uses wheelchair Walker as ambulation aid High cholesterol CPAP (continuous positive airway pressure) dependence Sleep apnea Hypothyroidism Anxiety disorder, unspecified Chronic pain Depressive 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 Obesity hypoventilation syndrome Obesity Normal stress echocardiogram Wears glasses PTSD (post-traumatic stress disorder) Depression Anxiety Thyroid disease Insulin dependent diabetes mellitus Ambulates with cane Fibromyalgia Arthritis DVT (deep venous thrombosis) High cholesterol Migraine headache Back pain Gait instability Syncope Dietary restriction History of diverticulitis Gastric reflux Former smoker ASV (adaptive servo-ventilation) use counseling On home oxygen therapy Shortness of breath on exertion Leg cramps History of pain when walking History of edema History of stress test Hypertension Implantable intrathecal infusion pump present Mixed connective tissue disease Osteoarthritis History of DVT (deep vein thrombosis) History of pulmonary embolus (PE) Atrophic vaginitis Bone spur Osteoarthritis calcium calcifications Mixed connective tissue disease History of neuropathy History of spinal stenosis History of diabetes mellitus Acromioclavicular arthrosis Strain of shoulder, left Neck pain Limb weakness Difficulty balancing Fatigue Shoulder pain Gastroesophageal reflux disease DJD (degenerative joint disease) of lumbar spine Home Medications ?Medication ?Instructions ?Recorded ?Last Taken ?Type omeprazole 40 mg capsule,delayed 40 mg PO DAILY GERD 08/30/13 02/20/24 History release trazodone 100 mg tablet 100 mg PO QHS mood 08/30/13 02/19/24 History levothyroxine 50 mcg tablet 50 mcg PO DAILY thyroid 10/21/17 09/15/22 History simvastatin 20 mg tablet 20 mg PO DAILY cholesterol 10/21/17 02/20/24 History atenolol 25 mg tablet 25 mg PO DAILY heart 05/18/19 02/18/24 History methotrexate sodium 2.5 mg tablet 20 mg PO FR fibromyalgia 08/19/20 09/10/22 History leucovorin calcium 10 mg tablet 5 mg PO FR supplement 12/08/20 09/10/22 History cholecalciferol (vitamin D3) 25 25 mcg PO DAILY supplement 09/13/22 09/15/22 History mcg (1,000 unit) capsule lisinopril 20 mg tablet 20 mg PO DAILY blood pressure #30 09/17/22 Unknown Rx tabs hydroxyzine pamoate 50 mg capsule 50 mg PO QHS mood #30 caps 09/07/23 Unknown Rx clonidine HCl 0.1 mg tablet 0.1 mg PO Q8H PRN PRN 03/03/24 02/20/24 13:30 Rx Anxiety/tremors #1 TAB folic acid 1 mg tablet 1 mg PO BREAKFAST #30 tabs 03/03/24 Unknown Rx insulin lispro 100 unit/mL See Rx Instructions .Route 03/03/24 Unknown Rx subcutaneous pen (Humalog JeanmariePen .COMPLEX diabetes #15 mL (U-100) Insulin) lorazepam 1 mg tablet 1 mg PO TID mood 05/07/24 Unknown History oxycodone-acetaminophen 5 mg-325 1 tab PO BID 07/27/24 Unknown History mg tablet tizanidine 4 mg tablet 4 mg PO TID 07/27/24 Unknown History insulin glargine-yfgn 100 unit/mL 52 unit subcut QHS diabetes 07/28/24 Unknown History (3 mL) subcutaneous pen lancets-blood glucose test #1 ea 07/28/24 Unknown Rx strips-pen needles with gauze kit insulin lispro 100 unit/mL 40 unit (0.4 mL) subcut TIDWMEAL 08/20/24 Unknown Rx subcutaneous pen (Humalog KwikPen #108 mL (U-100) Insulin) escitalopram oxalate 20 mg tablet 20 mg PO DAILY mood #90 tabs 09/03/24 Unknown Rx gabapentin 100 mg capsule 100 mg PO TID nerve pain 90 days 09/03/24 Unknown Rx #270 caps blood-glucose sensor (FreeStyle #6 ea 09/21/24 Unknown Rx Prema 3 Plus Sensor device) sumatriptan succinate 25 mg tablet See Rx Instructions PO .COMPLEX 10/12/24 Unknown Rx (Imitrex) #10 tabs Allergy/AdvReac Type Severity Reaction Status Date / Time niacin Allergy Itching Verified 10/12/24 13:01 venlafaxine AdvReac Severe Vomiting Verified 10/12/24 13:01 metformin AdvReac Intermediate Diarrhea Verified 10/12/24 13:01 cephalexin (From Keflex) AdvReac Other Verified 10/12/24 13:01 Family History Sister Breast cancer Diabetes Kidney disease Other Arthritis Heart disease Surgical History History of bunionectomy of both great toes History of lumbar fusion History of total right knee replacement Hx of surgical procedure Hx of arthroscopic knee surgery History of carpal tunnel release Hx of hysterectomy History of back surgery Hx of total knee replacement hx of plantar fasciotomy Social History household members: spouse Smoking Status: Former smoker alcohol intake: never substance use type: does not use caffeine: No what type of physical activity do you participate in: none seatbelt use: always do you feel safe at home: Yes additional social history: [id number] Patient is disabled ROS <KENNY Otto - Last Filed: 10/15/24 18:55> ROS ED Constitutional Constitutional ED: Denies chills or fever(s) Eyes Eyes: Reports other Details: Photophobia ; Denies change in vision Cardiovascular Cardiovascular: Denies chest pain Respiratory/Chest Respiratory/Chest: Denies dyspnea Gastrointestinal Gastrointestinal: Reports nausea; Denies abdominal pain or vomiting Musculoskeletal Musculoskeletal: Denies neck pain Integumentary Denies rash Neurologic Neurologic: Reports headache(s); Denies dizziness, paresthesias or weakness EXAM <KENNY Otto - Last Filed: 10/15/24 18:55> Physical Exam Const Vital Signs: 10/15/24 13:08 10/15/24 13:12 10/15/24 14:12 Temperature 97.6 F L 97.6 F L 97.6 F L Temperature Source Temporal Oral Oral Pulse Rate 83 69 69 Respiratory Rate 18 16 16 Blood Pressure 151/61 H 142/61 H 142/61 H Blood Pressure Mean 91 88 88 Pulse Ox 89 95 95 Oxygen Delivery Method Room Air Nasal Cannula Nasal Cannula Oxygen Flow Rate (L/min) 2 10/15/24 15:01 10/15/24 17:00 10/15/24 18:31 Temperature 97.8 F Temperature Source Pulse Rate 68 71 81 Respiratory Rate 16 Blood Pressure 129/63 H 132/88 H 148/90 H Blood Pressure Mean 85 102 109 Pulse Ox 94 99 100 Oxygen Delivery Method Room Air Room Air Oxygen Flow Rate (L/min) Positive well nourished, well developed and no apparent distress General Appearance ED: well developed HEENT Reports normocephalic and head/scalp atraumatic Mouth ED: Yes moist mucous membranes normal Eyes PERRL and EOMs intact bilaterally Neck full ROM, supple and no meningeal signs Chest Wall inspection of chest normal Resp normal respiratory effort and clear to auscultation bilaterally Cardio regular rate and regular rhythm GI soft to palpation, non-tender, non-distended and no masses Back/Spine normal ROM and normal to inspection Extremity normal to inspection and full ROM Neuro oriented x3, CN's II-XII intact bilaterally, moves all extremities, no focal motor deficits and no sensory deficits noted Neuro Narrative: NIH 0. Sensorium / Orientation: awake and alert Motor Exam: strength 5/5 throughout Psych mental status grossly normal and thought process normal Skin no rashes or lesions noted and no wounds <Dr. Rm Keating MD - Last Filed: 10/15/24 16:43> Physical Exam Const Vital Signs: 10/15/24 13:08 10/15/24 13:12 10/15/24 14:12 Temperature 97.6 F L 97.6 F L 97.6 F L Temperature Source Temporal Oral Oral Pulse Rate 83 69 69 Respiratory Rate 18 16 16 Blood Pressure 151/61 H 142/61 H 142/61 H Blood Pressure Mean 91 88 88 Pulse Ox 89 95 95 Oxygen Delivery Method Room Air Nasal Cannula Nasal Cannula Oxygen Flow Rate (L/min) 2 10/15/24 15:01 10/15/24 17:00 10/15/24 18:31 Temperature 97.8 F Temperature Source Pulse Rate 68 71 81 Respiratory Rate 16 Blood Pressure 129/63 H 132/88 H 148/90 H Blood Pressure Mean 85 102 109 Pulse Ox 94 99 100 Oxygen Delivery Method Room Air Room Air Oxygen Flow Rate (L/min) [facility] <KENNY Otto - Last Filed: 10/15/24 18:55> [facility] Narrative Medical decision making narrative: Patient presenting today due to a migraine she has had over the last 3 days. She does have a history of similar migraines but this one is lasting longer than usual. She does not have any meningeal signs on exam. She is otherwise nontoxic-appearing, she is afebrile. She has a normal neurological exam with an NIH of 0 . I will give her IV DHE and Reglan. On reexamination she reports that her headache is still there, she has had no improvement with this. I did offer to obtain a CTA of her head to assess for brain aneurysm/SAH, although low clinical suspicion. Patient is not wanting to have this test performed. She was then given valproic acid and on reexamination reports significant improvement of her headache. She is requesting to be discharged home. She was instructed to follow-up with her PCP closely, she reports that they are going to be giving her a neurology referral. She will be discharged home in stable condition. <Dr. Rm Keating MD - Last Filed: 10/15/24 16:43> [facility] Treatment and Re-Evaluation Narrative: I have personally performed a face to face assessment of the patient and have reviewed the SEKOU Note. I performed a substantive portion of the visit including all aspects of the following. My syed findings include: History is right retro-orbital headache along with photophobia nausea for the past 4 to 5 days, similar in quality and symptoms to prior migraines in the past but she does not happen very often and has unknown triggers. She tends to get them more often when it is cold such as now. Was here earlier and had medications that helped but the headache did not resolve. She has no new symptoms now. No focal neurologic symptoms. Exam is NAD, PERRL, EOMI, normal peripheral neurologic exam. Some photophobia. Neck supple no meningismus. Medical Decison Making vital signs are normal, she does not have any focal neurologic deficits, nor does she have symptoms of influenza. We offered a CT but at the same time I do not think it is required I think the chances of this being subarachnoid hemorrhage are very low, and even such, in order to definitively rule that out after 5 days she would need either CT angiography of the head and/or a lumbar puncture. Patient does not want to be even undergo the CT which is fine, we gave her initially Reglan and dihydroergotamine which did not help her headache, this is to be followed with valproic acid, we will consider steroids although she is a type II diabetic, therefore giving her steroids carries risk of hyperglycemia. Other additions or changes: [None] Discharge Plan Triage Chief Complaint: Headache ED Midlevel Provider: Della Capone ED Provider: Rm Keating Dx/Rx/DC Orders Clinical Impression: Migraine Instructions: ED, Migraine (Classical) Prescriptions: No Action methotrexate sodium 2.5 mg tablet 20 mg PO FR cholecalciferol (vitamin D3) 25 mcg (1,000 unit) capsule 25 mcg PO DAILY hydroxyzine pamoate 50 mg capsule 50 mg PO QHS Qty: 30 2RF lorazepam 1 mg tablet 1 mg PO TID escitalopram oxalate 20 mg tablet 20 mg PO DAILY Qty: 90 1RF gabapentin 100 mg capsule 100 mg PO TID 90 Days Qty: 270 2RF omeprazole 40 MG capsule 40 mg PO DAILY Patient Comments: ACID REFLEX trazodone 100 MG tablet 100 mg PO QHS Patient Comments: DEPRESSION levothyroxine 50 MCG tablet 50 mcg PO DAILY simvastatin 20 MG tablet 20 mg PO DAILY atenolol 25 MG tablet 25 mg PO DAILY leucovorin calcium 10 MG tablet 5 mg PO FR lisinopril 20 mg Tablet 20 mg PO DAILY Qty: 30 0RF folic acid 1 mg Tablet 1 mg PO BREAKFAST Qty: 30 0RF clonidine HCl 0.1 mg tablet 0.1 mg PO Q8H PRN PRN (Reason: Anxiety/tremors) Qty: 1 0RF Patient Comments: take 1 tablet by mouth three times a day if needed for anxiety or TREMOR(S) insulin lispro [Humalog KwikPen Insulin] 100 unit/mL Insulin Pen See Rx Instructions .ROUTE .COMPLEX Qty: 15 0RF Rx Instructions: 10 with breakfast 16 with lunch 14 with supper tizanidine 4 mg tablet 4 mg PO TID oxycodone-acetaminophen 5-325 mg tablet 1 tab PO BID insulin glargine-yfgn 100 unit/mL (3 mL) Insulin Pen 52 unit subcut QHS (DME) lancet-gluc xtgbz-[id number] Kit See Rx Instructions .Route Qty: 1 0RF Rx Instructions: As directed sumatriptan succinate [Imitrex] 25 mg tablet See Rx Instructions .ROUTE .COMPLEX Qty: 10 0RF Rx Instructions: take 1 tab at onset of headache; if no relief may repeat 1 tab after at least 2 hrs; max = 4 tabs/24 hr insulin lispro [Humalog KwikPen Insulin] 100 unit/mL insulin pen 40 unit subcut TIDWMEAL Qty: 108 1RF (DME) FreeStyle Prema 3 Plus Sensor Device See Rx Instructions .Route Qty: 6 1RF Rx Instructions: As directed Primary Care Provider: Rica Padgett Referrals: Rica Padgett DO [Primary Care Provider] - 5-7 Days Activity Restrictions/Additional Instructions: Follow-up with PCP and return for worsening symptoms. Print Language: Arabic Disposition Disposition: Home, Self Care Discharge Date/Time: 10/15/24 18:33
[2024-10-15] MEDS: Metoclopramide 10 MG/2 ML Vial 5 MG IV (14:46)
[2024-10-15] MEDS: Dihydroergotamine 1 MG/ML Ampul IV (14:48)
[2024-10-15 15:01] VITALS: BP 129/63; PULSE 68; O2SAT 94
[2024-10-15 17:00] VITALS: BP 132/88; PULSE 71; O2SAT 99
[2024-10-15] MEDS: Valproate Sodium 500 MG in Dextrose 5%-Water (50mL Bag) 50 ML 50 MG IV (17:22)
[2024-10-15 18:31] VITALS: BP 148/90; PULSE 81; RESP 16; TEMP 36.6; O2SAT 100
== END 2024-10-15 18:33 | disposition home or self-care (01) ==
PROVIDERS: Emergency Provider Emergency Medicine; PCP Family Medicine; Visit Provider Emergency Medicine
DX: G43.909 Migraine, unspecified, not intractable, without status migrainosus (principal); Z79.4 Long term (current) use of insulin; E11.42 Type 2 diabetes mellitus with diabetic polyneuropathy; I10 Essential (primary) hypertension; E78.00 Pure hypercholesterolemia, unspecified; E03.9 Hypothyroidism, unspecified; M79.7 Fibromyalgia; Z79.899 Other long term (current) drug therapy; Z87.891 Personal history of nicotine dependence
CPT/HCPCS: 96365; 96375; 99283; A4216; J1110

== ENCOUNTER 2024-11-20 03:00 | Emergency (ER) | payer MEDICARE, OTHER, SELFPAY ==
[2024-11-20 03:03] VITALS: BP 150/56; PULSE 84; RESP 16; TEMP 36.9; O2SAT 87; BMI 37.2
[2024-11-20 03:07] VITALS: TEMP 36.9
--- NOTE | 2024-11-20 03:07 | EDS_ITS ---
HPI HPI - Fall History of Present Illness Chief Complaint: Fall Informant: patient Occured/Mechanism Occurred: Today Mechanism/Context: Yes same level fall Pain/Injury Location: Face, back, and right knee Pain Location: face, neck and back Quality of Pain: Sharp and - (Cramping, pulling) Worsened by: Movement Relieved by: Nothing Associated Symptoms Associated Symptoms: Negative for Parasthesias, Weakness, Loss of function, Inability to ambulate, Loss of consciousness or Amnesia Narrative Narrative: Patient presents after a fall that occurred tonight. Patient states she was getting up off of the toilet and her right leg was asleep. Patient states she fell forward. Patient states she hit her head but did not lose consciousness. Patient complains of pain in her back. Patient describes it as sharp, cramping, and pulling. Patient states her pain is worse with any movement. Patient also states she scraped her right knee. Patient denies any paresthesias or weakness. Patient denies any other injuries. 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 Hallux rigidus, left foot MRSA infection Uses wheelchair Walker as ambulation aid High cholesterol CPAP (continuous positive airway pressure) dependence Sleep apnea Hypothyroidism Anxiety disorder, unspecified Chronic pain Depressive 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 Obesity hypoventilation syndrome Obesity Normal stress echocardiogram Wears glasses PTSD (post-traumatic stress disorder) Depression Anxiety Thyroid disease Insulin dependent diabetes mellitus Ambulates with cane Fibromyalgia Arthritis DVT (deep venous thrombosis) High cholesterol Migraine headache Back pain Gait instability Syncope Dietary restriction History of diverticulitis Gastric reflux Former smoker ASV (adaptive servo-ventilation) use counseling On home oxygen therapy Shortness of breath on exertion Leg cramps History of pain when walking History of edema History of stress test Hypertension Implantable intrathecal infusion pump present Mixed connective tissue disease Osteoarthritis History of DVT (deep vein thrombosis) History of pulmonary embolus (PE) Atrophic vaginitis Bone spur Osteoarthritis calcium calcifications Mixed connective tissue disease History of neuropathy History of spinal stenosis History of diabetes mellitus Acromioclavicular arthrosis Strain of shoulder, left Neck pain Limb weakness Difficulty balancing Fatigue Shoulder pain Gastroesophageal reflux disease DJD (degenerative joint disease) of lumbar spine Home Medications ?Medication ?Instructions ?Recorded ?Last Taken ?Type omeprazole 40 mg capsule,delayed 40 mg PO DAILY GERD 0 08/30/13 02/20/24 History release trazodone 100 mg tablet 100 mg PO QHS mood 08/30/13 02/19/24 History levothyroxine 50 mcg tablet 50 mcg PO DAILY thyroid 09/15/22 History simvastatin 20 mg tablet 20 mg PO DAILY cholesterol 0 10/21/17 02/20/24 History atenolol 25 mg tablet 25 mg PO DAILY heart 9 02/18/24 History methotrexate sodium 2.5 mg tablet 20 mg PO FR fibromya lgia 08/19/20 09/10/22 History leucovorin calcium 10 mg tablet 5 mg PO FR supplement 12/08/20 09/10/22 History cholecalciferol (vitamin D3) 25 25 mcg PO DAILY supple ment 09/13/22 09/15/22 History mcg (1,000 unit) capsule lisinopril 20 mg tablet 20 mg PO DAILY blood pressur e #30 09/17/22 Unknown Rx tabs hydroxyzine pamoate 50 mg capsule 50 mg PO QHS mood #3 0 caps 09/07/23 Unknown Rx clonidine HCl 0.1 mg tablet 0.1 mg PO Q8H PRN PRN 07/0 02/1902/20/24 13:30 Rx Anxiety/tremors #1 TAB folic acid 1 mg tablet 1 mg PO BREAKFAST #30 tabs 0 03/03/24 Unknown Rx insulin lispro 100 unit/mL See Rx Instructions .Route 03/03/24 Unknown Rx subcutaneous pen (Humalog KwikPen .COMPLEX diabetes #1 5 mL (U-100) Insulin) lorazepam 1 mg tablet 1 mg PO TID mood 05/07/24 Un known History oxycodone-acetaminophen 5 mg-325 1 tab PO BID 07/27/24 Unknown History mg tablet tizanidine 4 mg tablet 4 mg PO TID 07/27/24 Unknown History lancets-blood glucose test #1 ea 07/28/24 Unknown Rx strips-pen needles with gauze kit insulin lispro 100 unit/mL 40 unit (0.4 mL) subcut TID WMEAL 08/20/24 Unknown Rx subcutaneous pen (Humalog KwikPen #108 mL (U-100) Insulin) escitalopram oxalate 20 mg tablet 20 mg PO DAILY mood #90 tabs 09/03/24 Unknown Rx gabapentin 100 mg capsule 100 mg PO TID nerve pain 90 days 09/03/24 Unknown Rx #270 caps blood-glucose sensor (FreeStyle #6 ea 09/21/24 Unknown Rx Prema 3 Plus Sensor device) sumatriptan succinate 25 mg tablet See Rx Instructions PO .COMPLEX 10/12/24 Unknown Rx (Imitrex) #10 tabs semaglutide 1 mg/dose (4 mg/3 mL) 1 mg (0.75 mL) subcu t QWEEK #3 mL 10/30/24 Unknown Rx subcutaneous pen injector (Ozempic) insulin glargine-yfgn 100 unit/mL 52 unit (0.52 mL) blanchard bcut QHS 11/12/24 Unknown Rx (3 mL) subcutaneous pen diabetes #5 pens Allergy/AdvReac Type Severity Reaction Status Date / Time niacin Allergy Itching Verified 11/20/24 03:06 venlafaxine AdvReac Severe Vomiting Verified 11/20/24 03:06 metformin AdvReac Intermediate Diarrhea Verified 11/20/24 03:06 cephalexin (From Keflex) AdvReac Other Verified 11/20/24 03:06 Family History Sister Breast cancer Diabetes Kidney disease Other Arthritis Heart disease Surgical History History of bunionectomy of both great toes History of lumbar fusion History of total right knee replacement Hx of surgical procedure Hx of arthroscopic knee surgery History of carpal tunnel release Hx of hysterectomy History of back surgery Hx of total knee replacement hx of plantar fasciotomy Social History household members: spouse Smoking Status: Former smoker alcohol intake: never substance use type: does not use caffeine: No what type of physical activity do you participate in: none seatbelt use: always do you feel safe at home: Yes additional social history: [id number] at [employer] Patient is disabled ROS ROS ED Constitutional Constitutional ED: Denies chills or fever(s) Eyes Eyes: Denies blurry vision or change in vision ENT ENT ED: Denies rhinorrhea or sore throat Cardiovascular Cardiovascular: Denies chest pain or palpitations Respiratory/Chest Respiratory/Chest: Denies cough or dyspnea Gastrointestinal Gastrointestinal: Denies nausea or vomiting Genitourinary Genitourinary ED: Denies dysuria or hematuria Musculoskeletal Musculoskeletal: Reports back pain and neck pain Integumentary Denies abscess or rash Neurologic Neurologic: Denies headache(s) or weakness Allergic/Immunologic Allergic/Immunologic ED: Denies mouth swelling or urticaria EXAM Physical Exam Const Vital Signs: 11/20/24 03:03 11/20/24 03:07 Temperature 98.4 F 98.4 F Temperature Source Oral Pulse Rate 84 Respiratory Rate 16 Respiratory Effort Normal Non-Labored Respiratory Depth Normal Respiratory Pattern Normal Blood Pressure 150/56 H Blood Pressure Mean 87 Pulse Ox 87 Oxygen Delivery Method Room Air Room Air Positive well nourished and well developed Constitutional Narrative: BMI is 37.2 General Appearance ED: well developed and NAD HEENT Reports normocephalic HEENT Narrative: There is some mild edema and tenderness over the left periorbital area. There is no bony crepitance or step-off noted. There are no lacerations or abrasions noted. Eyes PERRL and EOMs intact bilaterally Neck full ROM Neck Narrative: There is tenderness over the right cervical paraspinal muscles. There is no midline tenderness. There is no bony crepitance or step-off noted. Back/Spine Back/Spine Narrative: There is tenderness over the lower thoracic and upper lumbar spine. Range of motion was limited in all motions of the thoracic and lumbar spine secondary to pain. Strength is 5/5 bilaterally in the upper and lower extremities. There are no sensory deficits noted. Thoracic Spine / Upper Back: ROM limited, pain with ROM and thoracic spinal tenderness Lumbar Spine / Lower Back: lumbar spinal tenderness Neuro oriented x3, CN's II-XII intact bilaterally, moves all extremities, no focal motor deficits and no sensory deficits noted Dolly Coma Scale: document GCS findings Spontaneous Obeys Commands Oriented 15 Sensorium / Orientation: alert Motor Exam: strength 5/5 throughout Psych mental status grossly normal and thought process normal MDM MDM MDM Narrative Medical decision making narrative: Differential diagnosis includes closed head injury, acute cervical strain, thoracic strain, lumbosacral strain, thoracic compression fracture, lumbar compression fracture, and cervical fracture. CT scan of the brain will be obtained to assess for intracranial bleeding and facial fracture. CT scan of the cervical spine will be obtained to assess for cervical spine fracture. X- rays of the thoracic spine will be obtained to assess for thoracic compression fracture. X-rays of the lumbar spine will be obtained to assess for lumbar compression fracture. Radiography Diagnostic Testing: Clinical Impression(s) from Imaging Studies Brain CT 11/20/24 03:26 IMPRESSION: No intracranial hemorrhage, mass effect or calvarial fracture. Reading Location: [facility] Cervical Spine CT 11/20/24 03:26 IMPRESSION: No fracture or malalignment. Reading Location: [facility] Thoracic Spine X-Ray 11/20/24 03:26 IMPRESSION: No fracture or malalignment identified. Reading Location: [facility] Lumbar Spine X-Ray 11/20/24 03:50 IMPRESSION: No fracture or malalignment identified. Hardware, intraspinal catheter and spondylosis/discogenic change as above. Reading Location: [facility] CT scan of the brain was obtained. There is no acute intracranial abnormality. This was interpreted by the radiologist and was also independently reviewed by myself. CT scan of the cervical spine was obtained. There is no acute fracture or spondylolisthesis. There is no soft tissue swelling. This was interpreted by the radiologist and was also independently reviewed by myself. X-rays of the thoracic spine were obtained. There are 2 views. On my indep endent interpretation, there is no acute fracture or spondylolisthesis. There are some degenerative changes noted. Radiologist also interpreted the x-rays and agrees. X-rays of the lumbar spine were obtained. There are 3 views. On my independent interpretation, there is no acute fracture or spondylolisthesis. The hardware is intact. There are some degenerative changes noted. Radiologist also interpreted the x-rays and agrees. Treatment and Re-Evaluation Narrative: Patient was given a dose of oxycodone here. Patient was advised of her findings. Patient was advised that this is most likely contusion and muscle strain. Patient was instructed to use ice to the area. Patient was instructed to follow-up with her primary care physician in 5 to 7 days. Patient understood and was agreeable with the plan. All questions were answered. Discharge Plan Triage Chief Complaint: Fall ED Provider: Tre Flores Dx/Rx/DC Orders Clinical Impression: Fall, Acute thoracic myofascial strain, Acute lumbosacral myofascial strain, Facial contusion Instructions: ED Back Sprain/Strain, ED Facial Contusion Prescriptions: No Action methotrexate sodium 2.5 mg tablet 20 mg PO FR cholecalciferol (vitamin D3) 25 mcg (1,000 unit) capsule 25 mcg PO DAILY hydroxyzine pamoate 50 mg capsule 50 mg PO QHS Qty: 30 2RF lorazepam 1 mg tablet 1 mg PO TID escitalopram oxalate 20 mg tablet 20 mg PO DAILY Qty: 90 1RF gabapentin 100 mg capsule 100 mg PO TID 90 Days Qty: 270 2RF omeprazole 40 MG capsule 40 mg PO DAILY Patient Comments: ACID REFLEX trazodone 100 MG tablet 100 mg PO QHS Patient Comments: DEPRESSION levothyroxine 50 MCG tablet 50 mcg PO DAILY simvastatin 20 MG tablet 20 mg PO DAILY atenolol 25 MG tablet 25 mg PO DAILY leucovorin calcium 10 MG tablet 5 mg PO FR lisinopril 20 mg Tablet 20 mg PO DAILY Qty: 30 0RF folic acid 1 mg Tablet 1 mg PO BREAKFAST Qty: 30 0RF clonidine HCl 0.1 mg tablet 0.1 mg PO Q8H PRN PRN (Reason: Anxiety/tremors) Qty: 1 0RF Patient Comments: take 1 tablet by mouth three times a day if needed for anxiety or TREMOR(S) insulin lispro [Humalog KwikPen Insulin] 100 unit/mL Insulin Pen See Rx Instructions .ROUTE .COMPLEX Qty: 15 0RF Rx Instructions: 10 with breakfast 16 with lunch 14 with supper tizanidine 4 mg tablet 4 mg PO TID oxycodone-acetaminophen 5-325 mg tablet 1 tab PO BID (DME) lancet-gluc iddeb-jqljkk-cmggi Kit See Rx Instructions .Route Qty: 1 0RF Rx Instructions: As directed sumatriptan succinate [Imitrex] 25 mg tablet See Rx Instructions .ROUTE .COMPLEX Qty: 10 0RF Rx Instructions: take 1 tab at onset of headache; if no relief may repeat 1 tab after at least 2 hrs; max = 4 tabs/24 hr insulin lispro [Humalog KwikPen Insulin] 100 unit/mL insulin pen 40 unit subcut TIDWMEAL Qty: 108 1RF (DME) FreeStyle Prema 3 Plus Sensor Device See Rx Instructions .Route Qty: 6 1RF Rx Instructions: As directed Ozempic 1 mg/dose (4 mg/3 mL) pen injector 1 mg subcut QWEEK Qty: 3 1RF insulin glargine-yfgn 100 unit/mL (3 mL) insulin pen 52 unit subcut QHS Qty: 5 1RF Primary Care Provider: Rica Padgett Referrals: Rica Padgett DO [Primary Care Provider] - 5-7 Days Print Language: Croatian Disposition Disposition: Home, Self Care
--- NOTE | 2024-11-20 03:26 | RAD_ITS ---
EXAM: Thoracic spine x-ray CLINICAL HISTORY: Injury, pain COMPARISON: 09/17/2019 TECHNIQUE: AP and lateral views of the thoracic spine FINDINGS: No fracture or malalignment identified. The disc spaces appear within limits. Spondylosis and DISH. RAD/Thoracic Spine 3 Views IMPRESSION: No fracture or malalignment identified. Reading Location: [id number]
--- NOTE | 2024-11-20 03:26 | CT_ITS ---
EXAM: Cervical spine CT without contrast CLINICAL HISTORY: Injury, pain COMPARISON: Radiographs 09/17/2019 TECHNIQUE: Noncontrast CT of the cervical spine with coronal and sagittal reformatted images FINDINGS: No fracture or malalignment. The disc spaces appear within limits. No prevertebral soft tissue swelling. Asymmetric left-sided multilevel facet degenerative changes. Visualized apices appear clear. Mild appearing right carotid calcification noted. CT/Spine Cervical without Contras IMPRESSION: No fracture or malalignment. Reading Location: [id number]
--- NOTE | 2024-11-20 03:26 | CT_ITS ---
EXAM: Noncontrast head CT CLINICAL HISTORY: Injury/pain COMPARISON: None available TECHNIQUE: Noncontrast head CT with coronal and sagittal reformatted images FINDINGS: Mild off axis imaging. No intracranial hemorrhage, mass effect or calvarial fracture. The ventricles are within limits and midline. The wallace-white differentiation appears preserved. Mild appearing convexity volume loss, atrophy. The paranasal sinuses, mastoids and orbits appear within limits. CT/Brain/Head without Contrast IMPRESSION: No intracranial hemorrhage, mass effect or calvarial fracture. Reading Location: [id number]
[2024-11-20] MEDS: oxyCODONE 5 MG Tablet PO (03:29)
--- NOTE | 2024-11-20 03:50 | RAD_ITS ---
EXAM: Lumbar spine 2 or three views x-ray CLINICAL HISTORY: Injury, pain COMPARISON: 05/14/[address] 07/28/2024 TECHNIQUE: Three views lumbosacral spine, AP, lateral and coned-down view FINDINGS: 5 [id number] lumbar vertebral type bodies again identified. No fracture or malalignment identified. There is again mild leftward curvature of the spine. Hardware L3 through L5 and at the upper right SI joint again noted and appears intact. Lower lumbar laminectomies again seen. Appearance of osseous fusion across the L4-5 disc again noted. Spondylosis/discogenic change again seen L2-3. Intraspinal catheter again noted. RAD/Lumbar Spine 2 or 3 Views IMPRESSION: No fracture or malalignment identified. Hardware, intraspinal catheter and spondylosis/discogenic change as above. Reading Location: [id number]
[2024-11-20 04:34] VITALS: BP 154/56; PULSE 87; RESP 18; TEMP 36.7; O2SAT 91
== END 2024-11-20 04:39 | disposition home or self-care (01) ==
LOC: ED 04:24
PROVIDERS: Emergency Provider Emergency Medicine; PCP Family Medicine; Visit Provider Emergency Medicine
DX: S39.012A Strain of muscle, fascia and tendon of lower back, initial encounter (principal); E11.42 Type 2 diabetes mellitus with diabetic polyneuropathy; Z79.4 Long term (current) use of insulin; S29.012A Strain of muscle and tendon of back wall of thorax, initial encounter; S00.83XA Contusion of other part of head, initial encounter; W18.11XA Fall from or off toilet without subsequent striking against object, initial encounter; E78.00 Pure hypercholesterolemia, unspecified; I10 Essential (primary) hypertension; E03.9 Hypothyroidism, unspecified; Z79.890 Hormone replacement therapy; Z79.85 Long-term (current) use of injectable non-insulin antidiabetic drugs; Z99.81 Dependence on supplemental oxygen; Z87.891 Personal history of nicotine dependence
CPT/HCPCS: 70450; 72072; 72100; 72125; 99284

== ENCOUNTER → 2024-11-29 | Outpatient (CLI) | payer MEDICARE, OTHER, SELFPAY ==
--- NOTE | 2024-11-29 13:58 | ECHOCS_ITS ---
Reason For Study Reason For Study: CSA, CRF, HYPOXIA Procedure This was a 2D Doppler, Color Flow transthoracic echocardiogram. The study was technically difficult. Due to body habitus and suboptimal accoustic apical windows. Contrast injection was performed. Exam performed in department. Left Ventricle Normal LV size. Left ventricular systolic function is normal. The left ventricular ejection fraction is 60 %. No regional wall motion abnormalities noted. Right Ventricle Normal RV size. Normal systolic function. Atria Normal left atrium. Normal right atrium. Mitral Valve Normal mitral valve. Tricuspid Valve Normal tricuspid valve. Aortic Valve Trisinus/trileaflet aortic valve. Pulmonic Valve The pulmonic valve is not well visualized. Great Vessels Normal aortic root. The pulmonary artery is normal size. Normal inferior vena cava. Pericardium/Pleural No pericardial effusion. Medication 22 gauge I.V. with prn adaptor inserted into right arm. Diluted definity 1.5ml given slow IV push to enhance endocardial definition. MMode/2D Measurements & Calculations LVIDd: 5.4 cm IVSd: 1.1 cm Ao root diam: 3.2 cm LVIDs: 3.4 cm LVPWd: 1.0 cm RVDd: 3.2 cm FS: 37.3 % LAV(MOD-bp): 65.1 ml LVAd ap4: 25.6 cm2 SV(MOD-sp4): 44.9 ml LAV(MOD-bp) Indexed: 29.8 ml/m2 LVLd ap4: 8.2 cm SI(MOD-sp4): 20.5 ml/m2 LAV(MOD-sp2): 58.7 ml EDV(MOD-sp4): 65.6 ml LAV(MOD-sp4): 72.8 ml EDV(sp4-el): 67.3 ml LVAs ap4: 13.3 cm2 LVLs ap4: 7.1 cm ESV(MOD-sp4): 20.7 ml ESV(sp4-el): 21.2 ml EF(MOD-sp4): 68.4 % EF(sp4-el): 68.6 % SV(sp4-el): 46.2 ml LA A4 area: 23.8 cm2 LA dimension(2D): 4.0 cm TAPSE: 2.4 cm Time Measurements MV dec time: 0.17 sec Doppler Measurements & Calculations MV E max glynn: 101.6 cm/sec Lat Peak E' Glynn: 18.3 cm/sec Med Peak E' Glynn: 9.9 cm/sec MV A max glynn: 100.3 cm/sec E/E' lat: 5.6 E/E' med: 10.3 MV E/A: 1.0 MV V2 max: 105.7 cm/sec MV P1/2t max glynn: 97.9 cm/sec Ao V2 max: 154.4 cm/sec MV max P.5 mmHg MV P1/2t: 73.9 msec Ao max P.5 mmHg MV V2 mean: 66.7 cm/sec Ao V2 mean: 106.8 cm/sec MV mean P.0 mmHg MV dec slope: 388.2 cm/sec2 Ao mean P.1 mmHg MV V2 VTI: 30.3 cm MVA(P1/2t): 3.0 cm2 Ao V2 VTI: 31.7 cm AV (velocity ratio): 0.84 LV V1 max: 121.1 cm/sec PA V2 max: 99.9 cm/sec TR max glynn: 207.6 cm/sec LV V1 max P.9 mmHg PA V2 mean: 75.6 cm/sec TR max P.2 mmHg LV V1 mean P.0 mmHg LV V1 mean: 81.1 cm/sec LV V1 VTI: 26.6 cm ECHO/Echo Complete W/ Contrast Interpretation Summary Normal LV size. Left ventricular systolic function is normal. The left ventricular ejection fraction is 60 %. Contrast injection was performed. Ordering Physician: Deuce Shaw V Referring Physician: Rica Padgett Performed By: Niya Espinal RDCS, RVT
== END | disposition home or self-care (01) ==
PROVIDERS: PCP Family Medicine; Referring Provider Internal Medicine Pulmonary Disease; Visit Provider Internal Medicine Pulmonary Disease
DX: G47.31 Primary central sleep apnea (principal); J96.11 Chronic respiratory failure with hypoxia
CPT/HCPCS: 93306; Q9957; A4216; C8929

== ENCOUNTER → 2025-01-03 | Outpatient (CLI) | payer MEDICARE, OTHER, SELFPAY ==
[2025-01-03 14:23] LABS: Anion Gap 12 (5-15); BUN 13 mg/dL (4-19); BUN/Creat Ratio 18.4 RATIO (10-20); Calcium,Total 8.7 mg/dL (7.6-11.0); Carbon Dioxide 25.8 mmol/L (21.0-32.0); Chloride 100 mmol/L (98-108); Creatinine, Serum 0.71 mg/dL (0.70-1.20); EST Glomerular Filtration Rate 94 (>60); Glucose 293 mg/dL (70-99); Potassium 4.8 mmol/L (3.3-5.1); Sodium Level 138 mmol/L (133-145); Vitamin D,25 Hydroxy 32.3 ng/mL (30-100)
== END | disposition home or self-care (01) ==
LOC: LAB 12:25
PROVIDERS: PCP Family Medicine; Referring Provider Podiatrist; Visit Provider Podiatrist
DX: M84.375A Stress fracture, left foot, initial encounter for fracture (principal)
CPT/HCPCS: 36415; 80048; 82306

== ENCOUNTER → 2025-02-04 | Outpatient (CLI) | payer MEDICARE, OTHER, SELFPAY ==
[2025-02-04 18:04] LABS: Absolute Lymphocyte Count 2.35 X10^3/uL (0.83-4.51); Absolute Neutrophil Count 6.7 X10^3/uL (2.0-7.7); Basophil# 0.06 X10^3/uL; Basophil% 0.6 % (0-1); Hematocrit 43.4 % (37-47); Hemoglobin 14.5 g/dL (12.0-15.0); Lymphocyte # 2.35 X10^3/ul (0.83-4.51); Lymphocyte % 24.2 % (19-41); Mean Corp Hgb Conc 33.4 g/dL (32-36); Mean Corpuscular Hgb 29.4 pg (27.0-32.0); Mean Corpuscular Volume 87.9 fL (81-99); Mean Platelet Vol. 9.6 fl (6.2-12.0); Monocyte% 5.1 % (0-10); NRBC Flagged by Analyzer 0 % (0-5); Neutrophil # 6.65 X10^3/uL (2.7-7.7); Neutrophil % 68.6 % (47-70); Platelet Count 251 K/mm3 (150-450); RBC Distribution Width CV 13.2 % (11.6-14.6); RBC Distribution Width SD 41.8 fl (35.1-43.9); Red Blood Count 4.94 M/mm3 (4.2-5.4); White Blood Count 9.7 K/mm3 (4.4-11.0)
[2025-02-04 18:11] LABS: Erythrocyte Sedimentation Rate 7 mm/hr (0-30)
[2025-02-04 18:50] LABS: ALB/GLOB Ratio 1.4 RATIO (0.9-2.4); AST(SGOT) 60 U/L (<=31); Alanine Aminotransfer ALT/SGPT 80 U/L (<=34); Albumin, Serum 4.3 g/dL (3.4-4.8); Alkaline Phosphatase 112 U/L (35-104); Anion Gap 16 (5-15); BUN 11 mg/dL (4-19); BUN/Creat Ratio 13.8 RATIO (10-20); Calcium,Total 9.5 mg/dL (7.6-11.0); Carbon Dioxide 24.5 mmol/L (21.0-32.0); Chloride 101 mmol/L (98-108); Creatinine, Serum 0.78 mg/dL (0.70-1.20); EST Glomerular Filtration Rate 84 (>60); Free T3 2.4 pg/mL (2.18-3.98); Globulin 3.1 g/dL (2.2-4.2); Glucose 247 mg/dL (70-99); Lipase 42 U/L (13-75); Magnesium 1.8 mg/dL (1.5-2.2); Potassium 4.6 mmol/L (3.3-5.1); Protein, Total 7.4 g/dL (5.9-8.4); Sodium Level 141 mmol/L (133-145); Thyroid Stim Hormone (TSH) 0.755 uIU/mL (0.300-4.200); Uric Acid 6.8 mg/dL (2.6-6.0)
== END | disposition home or self-care (01) ==
LOC: MTLAB 14:07
PROVIDERS: PCP Family Medicine; Referring Provider Family Medicine; Visit Provider Family Medicine
DX: E03.9 Hypothyroidism, unspecified (principal); R10.9 Unspecified abdominal pain; R19.7 Diarrhea, unspecified; E83.42 Hypomagnesemia; R25.2 Cramp and spasm; M10.9 Gout, unspecified
CPT/HCPCS: 36415; 80053; 83690; 83735; 84439; 84443; 84481; 84550; 85025; 85652; 86140

== ENCOUNTER → 2025-02-09 | Outpatient (CLI) | payer MEDICARE, OTHER, SELFPAY ==
--- NOTE | 2025-02-09 08:56 | CT_ITS ---
PROCEDURE: EXTREMITY LOWER WITHOUT CONTRA 02/09/2025 REASON FOR EXAM: STRESS FX TECHNIQUE: EXTREMITY LOWER WITHOUT CONTRA Coronal and Sagittal reconstruction series were provided. One or more dose reduction techniques were used (e.g., Automated exposure control, adjustment of the mA and/or kV according to patient size, use of iterative reconstruction technique). RADIATION DOSE SUMMARY: CTDlvol: 15 0.35 mGy DLP: 484.25 mGycm COMPARISON: None. FINDINGS: Bones: Normal mineralization. No displaced fracture identified Joints: Ankle joint unremarkable Soft Tissues: Unremarkable. CT/Extremity Lower without Contra IMPRESSION: No fracture identified. Grossly maintained alignment and in position Reading [facility]
--- OUTSIDE RECORDS SUMMARY | 2025-02-09 08:58 | XMS RPT_ITS | CCD ---
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 Rica Padgett Primary Care Provider Dr. Roscoe Helton Attending Provider Dr. Pj Mahoney Referring Provider [phone] Rica Padgett DO Primary Care Provider NICOLÁS AGGARWAL Referring Unavailable RICA PADGETT Primary Care Unavailable NICOLÁS AGGARWAL Attending Unavailable RICA PADGETT Primary Care Unavailable Dr. Rica Padgett Primary Care Provider Dr. Rica Padgett Referring Provider SAGE Ruiz Attending Provider Dr. Rica Padgett Primary Care Provider Dr. Rica Padgett Referring Provider SAGE Ruiz Attending Provider [phone] Marie Dee Emergency Provider Dr. Adebayo Mckeon Admit Provider Dr. Adebayo Mckeon Attending Provider Dr. Adebayo Mckeon Other Provider Dr. Tre Anderson Attending Provider Dr. Tre Anderson Other Provider Dr. Matt Oglesby Attending Provider Malys DO, Rica A Primary Care Provider MALYS DO, DR RICA Alonso Primary Care Physician PJ MAHONEY Attending Unavailable MALYS DO, DR RICA Alonso Primary Care Unavailable PJ MAHONEY Attending Unavailable MALYS DO, DR RICA Alonso Primary Care Unavailable PJ MAHONEY Attending Unavailable MALYS DO, DR RICA Alonso Primary Care Unavailable PJ MAHONEY Admitting Unavailable EDGAR GONZALEZ, MATTHEW Allan Consulting Unavailable PJ MAHONEY Referring Unavailable ERIC PRICING SUPERVISOR-BOX FABRICATOR, RICA M Consulting Unavaila ble Malys DO, Rica Flex Primary Care Provider RENITA MIJARES Attending Unavailable RENITA MIJARES Referring Unavailable MALYS, RICA FLEX Primary Care Unavailable ChipErin martin Primary Care Provider ChipOlivaErin Primary Care Provider Marissa Ruiz Attending Unavailable Malys, Rica Referring Unavailable Malys, Rica Primary Care Unavailable Pj Lee Attending Unavailable Malys, Rica Primary Care Unavailable Marissa Ruiz Attending Unavailable Malys, Rica Referring Unavailable Malys, Rica Primary Care Unavailable Malys, Rica Attending Unavailable Malys, Rica Referring Unavailable Malys, Rica Primary Care Unavailable Malys, Rica Primary Care Unavailable Malys, Rica Attending Unavailable Rafi Berry Referring Unavailable Rafi Berry Attending Unavailable Malys, Rica Primary Care Unavailable Racquel Gates Attending Unavaila ble Rafi Berry Consulting Unavailable Jose Maria, Chirag Chi Admitting Unavailable Malys, Rica Primary Care Unavailable Jose Maria, Chirag Chi Consulting Unavailable Matt Oglesby Attending Unavailable Malys, Rica Primary Care Unavailable Malys, Rica Primary Care Unavailable Marissa Ruiz Attending Unavailable Rafi Berry Referring Unavailable Kristi, Rafi Admitting Unavailable Naidu, Ellie Consulting Unavailable Ellie Naidu Attending Unavailable Malys, Rica Primary Care Unavailable Wunning, Rafi Consulting Unavailable Malys, Rica Primary Care Unavailable Be Trejoman Attending Unavailable Basali Ayman Referring Unavailable Sibilia, Deuce V Attending Unavailable Sibilia, Deuce V Referring Unavailable Malys, Rica Primary Care Unavailable Rm Keating Attending Unavailable Malys, Rica Primary Care Unavailable Malys, Rica Primary Care Unavailable Tre Anderson Attending Unavailable David Caruso Admitting Unavailable Shady David Consulting Unavailable Kristi, Rafi Referring Unavailable Wiltonnning, Rafi Admitting Unavailable Kristi, Rafi Attending Unavailable Naidu, Ellie Consulting Unavailable Malys, Rica Primary Care Unavailable Wunning, Rafi Consulting Unavailable Jose Maria, Chirag Chi Admitting Unavailable Jose Maria, Chirag Chi Attending Unavailable Malys, Rica Primary Care Unavailable Malys, Rica Primary Care Unavailable Pj Lee Attending Unavailable Malys, Rica Primary Care Unavailable Marissa Ruiz Attending Unavailable Malys, Rica Referring Unavailable Malys, Rica Primary Care Unavailable Marissa Ruiz Attending Unavailable Malys, Rica Referring Unavailable Tre Flores Attending Unavailable Malys, Rica Primary Care Unavailable Uday Stokes Attending Unavailable Stokes, Uday Referring Unavailable Malys, Rica Primary Care Unavailable Wuzuleyma, Rafi Referring Unavailable Rafi Berry Attending Unavailable Malys, Rica Primary Care Unavailable Pj Lee Attending Unavailable Malys, Rica Primary Care Unavailable Abhishek De Santiago Consulting Unavailable Abhishek De Santiago Attending Unavailable David Caruso Admitting Unavailable Shady David Consulting Unavailable David Caruso Attending Unavailable Malys, Rica Primary Care Unavailable Tre Anderson Attending Unavailable Justin, Tre Consulting Unavailable Allergies Allergy Classification Reported Allergen(s) Allergy Type Date of Onset Reaction(s) Facility Anti-Epileptic Agents (2 sources) gabapentin Drug Allergy 5 Mental Status Change [facility] Work Phone: Niacin (1 source) Niacin Drug Allergy 7 Rash, Hives, Itching [facility] (2 sources) gabapentin Drug Allergy 6 hives, light headed [facility] (1 source) gabapentin Drug Allergy Hives/Urticaria [facility] (8 sources) Cephalexin Drug Allergy 2 Other [facility] (16 sources) Niacin; Translations: [NIACIN] Drug Allergy 7 Rash, Hives, Itching [facility] (5 sources) gabapentin; Translations: [GABAPENTIN] Drug Allergy 5 Mental Status Change [facility] Work Phone: (2 sources) metFORMIN Drug Allergy 3 Diarrhea [facility] (3 sources) venlafaxine; Translations: [VENLAFAXINE] Drug Allergy 4 GI [facility] (2 sources) Niacin Drug Allergy 3 [facility] (1 source) Cephalexin Drug Allergy 5 [facility] (1 source) metFORMIN Drug Allergy 5 [facility] (1 source) Niacin Drug Allergy 5 [facility] (1 source) venlafaxine Drug Allergy 5 [facility] Medications Current Medications Medication Drug Class(es) Dates Sig (Normalized) Sig (Original) acetaminophen 500 mg oral tablet (1 source) Start: 02-24-2023 End: 03-10-2023 acetaminophen 500 mg oral tablet Dose : 1,000 mg = 2 tab(s), Oral, TID, PRN as needed for pain, # 100 tab(s), 0 Refill(s), 03/10/23 14:44:00 EDT Start Date: 02/24/23 Stop Date: 03/10/23 Status: Ordered acetaminophen 325 mg / HYDROcodone bitartrate 5 mg oral tablet (8 sources) Opioid Agonist Start: 12-15-2019 Hydrocodone-Acetamin ophen Active 1 EA PO TWICE A DAY December 15, 2019 3:25pm Start: 12-08-2015 take 1 tablet by armen th every six hours as needed HYDROCODONE-ACETAMINOPHEN 5-325 MG TABS 1 tab po q6h as needed HYDROCODONE-ACETAMINOPHEN [id number] Rica Padgett, acetaminophen 325 mg / oxyCODONE hydrochloride 5 mg oral tablet (20 sources) Opioid Agonist Start: 02-03-2023 take 1 tablet by mouth every six hours as needed for pain acetaminophen-oxyCODONE 325 mg-5 mg oral tablet Dose = 2 tab(s), Oral, q6h, PRN for pain, # 12 tab(s), 0 Refill(s) Start Date: 02/03/23 Status: Ordered Start: 09-16-2022 take 1 tablet by armen th every eight hours Oxycodone-Acetaminophen (Percocet) 5-325 mg Tablet Active 1 TABLET PO Q8H September 16, 2022 12:00am Start: 10-28-2017 End: 01-17-2018 take 1 tablet by mouth every four hours as needed Oxycodone-Acetaminophen Discontinued 1 - 2 TABLET PO EVERY 4 HOURS NEEDED 25 11October 28, 2017 12:00am January 17, 2018 11:09am Start: 12-06-2014 End: 01-17-2018 take 1 tablet by mouth every twelve hours Oxycodone-Acetaminophen Discontinued 1 - 2 TABLET PO Q12H December 05, 2014 11:00pm January 17, 2018 11:09am take 1 tablet by armen th once daily oxyCODONE-acetaminophen (PERCOCET) 5-325 mg tablet Take 1 tablet by mouth once daily. 0 Active Comment on above: Take 1 tablet by armen th once daily. ascorbic acid 500 mg oral tablet (6 sources) Vitamin C Start: 05-18-2019 take 500 mg by mouth once daily Ascorbic Acid (Vitamin C) Active 500 MG PO DAILY@0800 May 18, 2019 11:33am atenolol 25 mg oral tablet (20 sources) beta-Adrenergic Sj Start: 04-19-2023 take 2 tablets by mouth once daily atenolol (Tenormin) 25 mg tablet Take 2 tablets (50 mg) by mouth once daily. 0 04/19/2023 Active Start: 02-24-2023 End: 02-24-2023 atenolol Start: 02/24/23 9:0 0:00 EDT, Dose = 25 mg, = 1 tab(s), Oral, Hold if SBP (mmHg) Start Date: 02/24/23 Stop Date: 02/24/23 Status: Completed Start: 05-18-2019 atenolol 25 mg oral tablet Dose : 25 mg = 1 tab(s), Oral, qDay, # 30 tab(s), 0 Refill(s) Start Date: 02/03/23 Status: Ordered Comment on above: Take 25 mg by mouth once daily. B Complex 50 oral tablet (3 sources) Start: take 1 tablet by mouth once daily B Complex 50 oral tablet Dose = 1 tab(s), Oral, Daily, # 30 tab(s), 0 Refill(s) Start Date: 02/03/23 Status: Ordered calcium carbonate 1250 mg / cholecalciferol 125 unt oral tablet (6 sources) Vitamin D Start: take 1 tablet by mouth once daily Calcium Carbonate-Vitamin D3 (Calcium 500 + D (D3)) 500 mg-3.125 mcg (125 unit) Tablet Active 1 TABLET PO DAILY September 22, 2021 3:10pm cephalexin 500 mg oral tablet (1 source) Cephalosporin Antibacterial Start: End: take 1 tablet by mouth four times daily cephalexin 500 mg oral tablet ; 1 tab(s) orally 4 times a day Quantity: 40 Refills: 0 Ordered: 21-May-2021 Silvana Henderson Start: 21-May-2021 End: 30-May-2021 Generic Substitution Allowed Comments: Finish all this medication unless otherwise directed by prescriber. Comment on above: Finish all this medi cation unless otherwise directed by prescriber. cholecalciferol 0.025 mg oral capsule (14 sources) Vitamin D Start: take 25 ug by mouth once daily Cholecalciferol (Vitamin D3) Active 25 MCG PO DAILY September 13, 2022 12:00am Start: 10-21-2017 End: 01-17-2018 take 2000 [IU] by mouth twice daily Cholecalciferol (Vitamin D3) Discontinued 2000 UNITS PO TWICE A DAY October 21, 2017 12:00am January 17, 2018 11:09am cholecalciferol (D3-1000) 25 MCG (1000 UT) tablet Indications: Vitamin D Deficiency Take by mouth daily. At bed 0 Active citalopram 20 mg oral tablet (10 sources) Serotonin Reuptake Inhibitor Start: 10-05-2022 End: 01-03-2023 take 1 tablet by mouth once daily citalopram (CeleXA) 20 MG tablet Indications: Major Depressive Disorder Take 1 tablet (20 mg) by mouth Nightly. 30 tablet 2 10/05/2022 Active Start: 12-15-2019 take 4 tablets by mo uth at bedtime Citalopram (Celexa) 10 mg tablet Active 40 MG PO AT BEDTIME December 14, 2019 11:00pm Start: 12-15-2019 take 1 tablet by armen at bedtime Citalopram (Celexa) 10 mg tablet Active 10 MG PO AT BEDTIME December 15, 2019 3:33pm cloNIDine hydrochloride 0.1 mg oral tablet (7 sources) Central alpha-2 Adrenergic Agonist Start: 02-03-2023 take 1 tablet by mouth three times daily as needed for anxiety cloNIDine (Catapres) 0.1 mg tablet Take 1 tablet (0.1 mg) by mouth 3 times a day as needed (anxiety). 0 02/03/2023 Active cloNIDine (Catap res) 0.1 MG tablet Indications: Hypertension Take by mouth 3 times daily. 0 Active dexamethasone 6 mg oral tablet (3 sources) Corticosteroid Start: 01-25-2022 take 1 tablet by mouth once daily Dexamethasone (Decadron) 6 mg tablet Active 6 MG PO DAILY January 25, 2022 4:19pm diclofenac sodium 0.01 mg/mg topical gel (12 sources) Nonsteroidal Anti-inflammatory Drug Start: 09-22-2021 Diclofenac Sodium (Voltaren Arthritis Pain) 1 % Gel Active 1 EACH TOPICAL NEEDED September 22, 2021 12:00am Start: 12-08-2015 VOLTAREN 1 % G EL apply to affected area daily as needed DICLOFENAC SODIUM [id number] Rica Padgett, Diclofenac Sodiu m (Voltaren) 1 % gel Indications: Arthritis Apply topically as needed. 0 Active dicyclomine hydrochloride 10 mg oral capsule (2 sources) Anticholinergic Start: 06-29-2023 take 2 capsules by mouth every six hours as needed dicyclomine (Bentyl) 10 mg capsule Take 2 capsules (20 mg) by mouth every 6 hours if needed (cramping). 0 06/29/2023 Active SENOKOT-S (1 source) Start: 02-24-2023 End: 02-26-2023 Senokot S Dose = 2 tab(s), Oral, BID, Take until first bowel movement, then as needed, 0 Refill(s) Start Date: 02/24/23 Stop Date: 02/26/23 Status: Ordered escitalopram 20 mg oral tablet (5 sources) Serotonin Reuptake Inhibitor Start: 05-28-2023 take 1 tablet by mouth once daily escitalopram (Lexapro) 20 mg tablet Take 1 tablet (20 mg) by mouth once daily. 0 05/28/2023 Active Start: 02-22-2023 escitalopram 2 0 mg oral tablet Dose : 20 mg = 1 tab(s), Oral, Daily, 0 Refill(s) Start Date: 02/22/23 Status: Ordered Start: 02-03-2023 escitalopram 1 0 mg oral tablet 0 Refill(s) Start Date: 02/03/23 Status: Ordered folic acid 1 mg oral tablet (19 sources) Start: 05-09-2023 folic acid (Fo lvite) 1 mg tablet Start: 02-03-2023 folic acid 1 m g oral tablet Dose : 1 mg = 1 tab(s), Oral, qDay, # 30 tab(s), 0 Refill(s) Start Date: 02/03/23 Status: Ordered Start: 08-19-2020 take 0.8 mg by mouth once daily Folic Acid Active 0.8 MG PO DAILY August 19, 2020 12:00am take 0.8 mg by mouth once daily folic acid (Folvite) 800 MCG tablet Indications: Antifolate Chemotherapy Toxicity Take 0.8 mg by mouth daily. 0 Active folic acid 1 mg tablet Take 400 mg by mouth once daily. 0 Active Comment on above: Take 400 mg by mouth once daily. furosemide 40 mg oral tablet (12 sources) Loop Diuretic Start: 09-17-2022 take 40 mg by mouth once daily Furosemide Active 40 MG PO DAILY September 17, 2022 3:33pm Start: 09-22-2021 End: 09-17-2022 take 40 mg by mouth twice daily Furosemide Discontinued 40 MG PO TWICE A DAY September 22, 2021 12:00am September 17, 2022 3:33pm gabapentin 100 mg oral capsule (7 sources) Anti-epileptic Agent Start: 06-06-2023 take 1 capsule by mouth three times daily gabapentin (Neurontin) 100 mg capsule Take 1 capsule (100 mg) by mouth 3 times a day. 0 06/06/2023 Active Start: 02-23-2023 gabapentin 100 mg oral capsule Dose : 100 mg = 1 cap(s), Oral, TID, # 90 cap(s), 0 Refill(s), 110 Start Date: 02/23/23 Status: Ordered Start: 02-03-2023 take 1 capsule by mo uth three times daily gabapentin 300 mg oral capsule take 1 capsule by mouth three times a day Start Date: 02/03/23 Status: Ordered Start: 09-13-2022 take 100 mg by mouth three times daily Gabapentin Active 100 MG PO THREE TIMES A DAY September 13, 2022 12:00am herbal/nutritional product (3 sources) Start: 02-03-2023 take 1 tablet by mouth once daily herbal/nutritional product Dose = 2 tab(s), Oral, Daily, ELDERBERRY CHEWABLES, 0 Refill(s) Start Date: 02/03/23 Status: Ordered Hydromorphone-Bupiv (Pf)-Nacl (8 sources) Start: 09-22-2021 Hydromorphone- Bupiv (Pf)-Nacl Active 0 ML continuous epidural DAILY September 22, 2021 3:10pm Start: 09-22-2021 Hydromorphone- Bupiv (Pf)-Nacl Active 0 ML continuous epidural DAILY September 22, 2021 12:00am hydrOXYzine hydrochloride 50 mg oral tablet (20 sources) Antihistamine Start: 04-23-2023 hydrOXYzine HC L (Atarax) 50 mg tablet Take 1 tablet (50 mg) by mouth. 0 04/23/2023 Active Start: 02-03-2023 hydrOXYzine hy drochloride 50 mg oral tablet Dose : 100 mg = 2 tab(s), Oral, qDay, # 30 tab(s), 0 Refill(s) Start Date: 02/03/23 Status: Ordered Start: 12-08-2015 take 1 tablet by armen th once daily HYDROXYZINE HCL 50 MG TABS 1 po daily HYDROXYZINE HCL [id number] Rica Padgett DO Start: 08-30-2013 take 100 mg by mouth at bedtim e Hydroxyzine Pamoate Active 100 MG PO AT BEDTIME August 30, 2013 12:00am take 1 tablet by armen th twice daily hydrOXYzine HCl 50 mg tablet Take 50 mg by mouth twice daily. 0 Active Comment on above: Take 50 mg by mouth twice daily. 3 ml insulin glargine 100 unt/ml pen injector (15 sources) Insulin Analog Start: 02-03-2023 inject 1 dose by subcutaneous injection once daily at bedtime Lantus Solostar Pen 100 units/mL 3 mL Pen Dose : 45 unit(s) =, Subcutaneous, qHS, # 3 mL, 0 Refill(s) Start Date: 02/03/23 Status: Ordered Start: 09-22-2021 Lantus Solosta r U-100 Insulin 100 unit/mL (3 mL) pen Inject 30 Units under the skin once daily at bedtime. 0 07/01/2023 Active Start: 09-22-2021 insulin glargi ne (Lantus) 100 UNIT/ML pen Indications: Type 2 Diabetes Mellitus 45 Int'l Units Nightly. 0 09/22/2021 Active Start: 09-22-2021 Insulin Glargi ne (Lantus Solostar U-100 Insulin) 100 unit/mL (3 mL) Insulin Pen Active 45 UNIT SC EVERY EVENING September 22, 2021 12:00am Start: 09-22-2021 Insulin Glargi ne (Lantus Solostar U-100 Insulin) 100 unit/mL (3 mL) Insulin Pen Active 20 UNIT SC EVERY EVENING September 22, 2021 3:10pm 3 ml insulin lispro 100 unt/ml pen injector (19 sources) Insulin Analog Start: 02-03-2023 HumaLOG KwikPe n 100 units/mL injectable PEN Dose : 25 unit(s) =, Subcutaneous, TIDAC, 12 UNITS WITH SNACKS, 0 Refill(s) Start Date: 02/03/23 Status: Ordered Start: 01-06-2023 HumaLOG KwikPe n Insulin 100 unit/mL injection Inject 14 Units under the skin 3 times a day with meals. 7 Units before snacks 0 01/06/2023 Active Start: 09-22-2021 End: 09-13-2022 inject 25 [IU] by subcutaneous injection three times daily at mealtime Insulin Lispro Active 0 SC THREE TIMES A DAY September 13, 2022 10:33am 25 subcutaneously three times a day; with meals 12 units with snack inject 25 [IU] by kent bcutaneous injection once daily at bedtime Insulin Lispro (Humalog) 100 UNIT/ML solution injection Indications: Type 2 Diabetes Mellitus Inject 25 Units under the skin Nightly. At bedtime 0 Active Insulin Lispro ( Humalog) 100 UNIT/ML solution injection Indications: Type 2 Diabetes Mellitus Inject 12 Units under the skin in the morning and 12 Units at noon and 12 Units in the evening. Inject with meals. With snacks. 0 Active Lactobacillus Combination No.9 (Adult 50 Plus Probiotic) 4 billion cell capsule (2 sources) Start: 09-13-2022 take 4 capsules by mouth once daily Lactobacillus Combination No.9 (Adult 50 Plus Probiotic) 4 billion cell capsule Active 4000 MMU CELLS PO DAILY September 13, 2022 12:00am administer with a meal leucovorin 5 mg oral tablet (15 sources) Folate Analog Start: 02-03-2023 take 1 tablet by mouth every week leucovorin (Wellcovorin) 5 mg tablet Take 1 tablet (5 mg total) by mouth 1 (one) time per week. With methotrexate 0 06/27/2023 Active Start: 12-08-2020 Leucovorin Jose Luis cium Active 5 MG PO FR December 07, 2020 11:00pm leucovorin (Well covorin) 5 MG tablet Indications: Methotrexate Toxicity Take 5 mg by mouth. Take with a full glass of water. 0 Active levothyroxine sodium 0.05 mg oral tablet (20 sources) l-Thyroxine Start: 02-03-2023 Synthroid 50 m cg (0.05 mg) oral tablet Dose : 50 mcg = 1 tab(s), Oral, qDay, # 30 tab(s), 0 Refill(s) Start Date: 02/03/23 Status: Ordered Start: 10-21-2017 take 1 tablet by armen th once daily before mealtime Synthroid 50 mcg tablet Take 1 tablet (50 mcg) by mouth once daily in the morning. Take before meals. 0 03/29/2023 Active Comment on above: 50 mcg. lisinopril 20 mg oral tablet (9 sources) Angiotensin Converting Enzyme Inhibitor Start: 07-10-2023 take 1 tablet by mouth once daily lisinopril 20 mg tablet Take 1 tablet (20 mg) by mouth once daily. 0 07/10/2023 Active Start: 09-17-2022 lisinopril 20 MG tablet Indications: Hypertension Take 20 mg by mouth. 0 09/17/2022 Active LORazepam 2 mg oral tablet (20 sources) Benzodiazepine Start: 06-22-2023 take 0.5 tablet by mouth twice daily as needed for anxiety LORazepam (Ativan) 2 mg tablet Take 0.5 tablets (1 mg) by mouth 2 times a day as needed for anxiety. 0 06/22/2023 Active Start: 02-03-2023 LORazepam 1 mg oral tablet Dose : 1 mg = 1 tab(s), Oral, TID, PRN as needed for anxiety, 0 Refill(s) Start Date: 02/03/23 Status: Ordered Start: 08-30-2013 take 1 mg by mouth t hree times daily Lorazepam Active 1 MG PO THREE TIMES A DAY August 30, 2013 12:00am Start: 10-20-2011 take 1 tablet by armen th twice daily as needed LORazepam (ATIVAN) 1 mg ORAL tablet Indications: Adjustment disorder with anxiety Take 1 tablet by mouth twice daily as needed. 60 tablet 5 10/20/2011 Active take 1 tablet by armen th every eight hours as needed for anxiety LORazepam (Ativan) 1 MG tablet Indications: Anxiety Take 1 mg by mouth every 8 hours as needed for anxiety. 3x a day PRN 0 Active Comment on above: Take 1 tablet by armen th twice daily as needed. meloxicam 7.5 mg oral tablet (13 sources) Nonsteroidal Anti-inflammatory Drug Start: 02-24-2023 Mobic 7.5 mg oral tablet Dose : 7.5 mg = 1 tab(s), Oral, BIDM, 0 Refill(s) Start Date: 02/24/23 Status: Ordered Start: 10-21-2017 End: 08-19-2020 take 7.5 mg by mouth once daily Meloxicam Discontinued 7.5 MG PO DAILY October 21, 2017 12:00am August 19, 2020 9:14am Comment on above: Take 7.5 mg by mouth once daily. methotrexate 2.5 mg oral tablet (15 sources) Folate Analog Metabolic Inhibitor Start: 3 take 8 tablets by mouth every week methotrexate (Trexall) 2.5 mg tablet Take 8 tablets (20 mg total) by mouth 1 (one) time per week. 0 06/06/2023 Active Start: 02-03-2023 methotrexate 2 .5 mg oral tablet Dose : 20 mg = 8 tab(s), Oral, qWeek, FRIDAYS, # 72 tab(s), 0 Refill(s) Start Date: 02/03/23 Status: Ordered Start: 08-19-2020 Methotrexate S odium Active 20 MG PO FR August 19, 2020 12:00am take 1 tablet by armen th every week methotrexate 2.5 MG tablet Indications: Arthritis Take 2.5 mg by mouth 1 (one) time per week. Follow directions carefully, and ask to explain any part you do not understand. Take exactly as directed. 8 tabs a week 0 Active multivitamin tablet (2 sources) take 1 tablet by mouth once daily multivitamin tablet Take 1 tablet by mouth once daily. 0 Active Nirmatrelvir-Ritonavir (5 sources) Start: 01-25-2022 Nirmatrelvir-Ritonavir (Paxlovid (Eua)) 150 mg x 2- 100 mg tablet Active 0 PO .COMPLEX January 25, 2022 4:20pm take TWO 150 mg tablets of nirmatrelvir with ONE 100 mg tablet of ritonavir twice daily for 5 days Start: 01-25-2022 End: 03-29-2022 Nirmatrelvir-Ritonavir (Paxl ovid (Eua)) 150 mg x 2- 100 mg tablet Discontinued 0 PO .COMPLEX January 24, 2022 11:00pm March 29, 2022 8:22am take TWO 150 mg tablets of nirmatrelvir with ONE 100 mg tablet of ritonavir twice daily for 5 days omeprazole 40 mg delayed release oral capsule (20 sources) Proton Pump Inhibitor Start: 08-30-2013 take 1 capsule by mouth once daily before mealtime omeprazole (PriLOSEC) [address] capsule Take 1 capsule (40 mg) by mouth once daily in the morning. Take before meals. 0 05/28/2023 Active Comment on above: Take 40 mg by mouth once daily. One-A-Day Women 50 Plus oral tablet (3 sources) Start: 02-03-2023 take 1 tablet by mouth once daily One-A-Day Women 50 Plus oral tablet Dose = 1 tab(s), Oral, Daily, # 30 tab(s), 0 Refill(s) Start Date: 02/03/23 Status: Ordered oxyCODONE hydrochloride 5 mg oral tablet (1 source) Opioid Agonist Start: 02-24-2023 End: 03-03-2023 take 1-2 tablets by mouth every four hours as needed for pain oxyCODONE 5 mg oral tablet ( IMMEDIATE release ) See Instructions, PRN as needed for pain, 1-2 tab(s) Oral q4h, # 42 tab(s), 0 Refill(s), 03/03/23 14:42:00 EDT, Status post total right knee replacement, 110 Start Date: 02/24/23 Stop Date: 03/03/23 Status: Ordered potassium chloride 8 meq extended release oral capsule (10 sources) Start: 09-17-2022 take 8 mEq by mouth once daily Potassium Chloride Active 8 MEQ PO DAILY September 17, 2022 3:33pm Start: 08-19-2020 End: 09-17-2022 take 20 mEq by mouth twice daily Potassium Chloride Discontinued 20 MEQ PO TWICE A DAY August 19, 2020 12:00am September 17, 2022 3:33pm pregabalin 50 mg oral capsule (2 sources) take 1 capsule by mouth once daily pregabalin (Lyrica) 50 MG capsule Indications: Neuropathic Pain Take 50 mg by mouth daily. 0 Active Probiotic (3 sources) Start: 3 Probiotic Oral, Daily, 0 Refill(s) Start Date: 02/03/23 Status: Ordered Pump Patient Supplied Medication (2 sources) Start: 3 Pump Patient Supplied Medication by intrathecal route continuously. Hydromorphone Pain Pump 0 07/11/2023 Active rivaroxaban 10 mg oral tablet (9 sources) Factor Xa Inhibitor Start: 3 End: 3 Xarelto 10 mg oral tablet Dose : 10 mg = 1 tab(s), Oral, qDay, Continue Xarelto for 2 weeks postoperatively with stop date March 08, 2023, 0 Refill(s), 110 Start Date: 02/24/23 Stop Date: 03/08/23 Status: Ordered Start: 12-08-2015 End: 03-30-2016 take 1 tablet by mouth once daily XARELTO 20 MG TABS 1 po daily RIVAROXABAN [id number] Adebayo Saunders DO take 2 tablets by [facility] once daily rivaroxaban (XARELTO) 10 mg tablet Take 20 mg by mouth once daily. 0 Active Comment on above: Take 20 mg by mouth once daily. saccharomyces boulardii 250 mg oral capsule (4 sources) take 1 capsule by mouth once daily saccharomyces boulardii (Florastor) 250 MG capsule Indications: Gastrointestinal Health Take 250 mg by mouth Nightly. 0 Active semaglutide 7 mg oral tablet (4 sources) Start: 08-31-19 take 7 mg by mouth once daily Semaglutide Active 7 MG PO DAILY September 16, 2022 12:00am simvastatin 20 mg oral tablet (19 sources) HMG-CoA Reductase Inhibitor Start: 10-21-19 18 take 1 tablet by mouth once daily at bedtime simvastatin (Zocor) 20 mg tablet Take 1 tablet (20 mg) by mouth once daily at bedtime. 0 04/27/2023 Active Comment on above: Take 20 mg by mouth daily at bedtime. tiZANidine 4 mg oral tablet (20 sources) Central alpha-2 Adrenergic Agonist Start: 06-29-20 take 1 tablet by mouth three times daily as needed for muscle spasms tiZANidine (Zanaflex) 4 mg tablet Take 1 tablet (4 mg) by mouth 3 times a day as needed for muscle spasms. 0 06/29/2023 Active Start: 12-08-2015 take 1 tablet by armen th three times daily tiZANidine 4 mg oral tablet take 1 tablet by mouth three times a day for 14 days Start Date: 02/03/23 Status: Ordered Start: 08-30-2013 take 4 mg by mouth once daily Tizanidine Active 4 MG PO DAILY August 30, 2013 1:37pm Start: 08-30-2013 take 8 mg by mouth at bedtime Tizanidine Active 8 MG PO AT BEDTIME August 30, 2013 12:00am Comment on above: Take 4 mg by mouth o nce daily. traZODone hydrochloride 100 mg oral tablet (20 sources) Serotonin Reuptake Inhibitor Start: 8 End: 9 take 50 mg by mouth once daily Trazodone Discontinued 50 MG PO daily January 16, 2018 11:00pm October 30, 2018 8:54am Start: 10-20-2011 take 1 tablet by armen th once daily at bedtime traZODone (Desyrel) 100 mg tablet Take 1 tablet (100 mg) by mouth once daily at bedtime. 0 07/10/2023 Active Comment on above: Take 1 tablet by armen th daily at bedtime. vitamin b6 100 mg oral tablet (2 sources) take 1 tablet by mouth once daily pyridoxine (Vitamin B-6) 100 MG tablet Indications: Pyridoxine Deficiency Take 100 mg by mouth daily. 0 Active Vitamin D3 (3 sources) Start: 02-03-2023 Vitamin D3 Dose : 25 mcg = 1 tab(s), Oral, Daily, # 30 tab(s), 0 Refill(s) Start Date: 02/03/23 Status: Ordered Completed/Discontinued Medications Medication Drug Class(es) Dates Sig (Normalized) Sig (Original) [id number] actuat albuterol 0.09 mg/actuat metered dose inhaler (8 sources) beta2-Adrenergic Agonist Start: 04-21-2018 End: 10-30-2018 take 1 puff(s) by inhalation every four hours as needed Albuterol Sulfate Discontinued 1 - 2 PUFF INHALATION EVERY 4 HOURS NEEDED 1 April 20, 2018 11:00pm October 30, 2018 8:55am aspirin 81 mg chewable tablet (20 sources) Platelet Aggregation Inhibitor, Nonsteroidal Anti-inflammatory Drug Start: 09-04-2008 End: 03-22-2016 take 81 mg by mouth once daily Aspirin Discontinued 81 MG PO DAILY@0800 December 05, 2014 11:00pm August 02, 2015 8:32am take 1 tablet by mouth once hao y aspirin, enteric coated (ASPIR-81) 81 mg EC tablet Take 81 mg by mouth once daily. 0 Active Comment on above: ONE TAB DAILY Take 81 mg by mouth once daily. buPROPion (4 sources) Aminoketone take 1500 mg by mouth once daily BUPROPION HCL ORAL Take 1,500 mg by mouth once daily. 0 Active Comment on above: Take 1,500 mg by armen th once daily. busPIRone hydrochloride 10 mg oral tablet (1 source) Start: 2 End: 5 take 1 tablet by mouth twice daily busPIRone (BUSPAR) 10 mg ORAL tablet Indications: Adjustment disorder with anxious mood Take 1 tablet by mouth twice daily. 60 tablet 3 10/20/2011 03/04/2015 Discontinued (Discontinued by Patient) Comment on above: Take 1 tablet by armen th twice daily. calcium chloride 0.0014 meq/ml / potassium chloride 0.004 meq/ml / sodium chloride 0.103 meq/ml / sodium lactate 0.028 meq/ml injectable solution (2 sources) Start: 4 End: 4 lactated Ringer's infusion COMPOUNDED PRESCRIPTION (6 sources) Start: 8 End: 5 COMPOUNDED PRESCRIPTION Calcium, Vitamin D,Potassium, Magnesium:4 tablets every hs 0 01/19/2008 03/04/2015 Discontinued (Discontinued by Patient) Start: 11-24-2006 COMPOUNDED PRE SCRIPTION dilaudid infusion pump 3.533mg/day 0 11/24/2006 Active Comment on above: dilaudid infusion pu mp 3.533mg/day Calcium, Vitamin D,P otassium, Magnesium:4 tablets every hs diphenhydrAMINE (4 sources) Histamine-1 Receptor Antagonist Start: 09-06-2023 End: 09-06-2023 diphenhydrAMINE (BENADryl) injection Start: 09-06-2023 End: 09-06-2023 diphenhydrAMINE (BENADryl) i njection 0.5 ml dulaglutide 3 mg/ml auto-injector (15 sources) GLP-1 Receptor Agonist Start: 02-03-2023 Trulicity Pen 1.5 mg/0.5 mL subcutaneous solution Dose : 4.5 mg =, Subcutaneous, qWeek, FRIDAYS, 0 Refill(s), 0.5 mL/Pen Start Date: 02/03/23 Status: Ordered Start: 06-09-2022 End: 08-23-2022 Dulaglutide (Trulicity) 3 mg /0.5 mL pen injector Discontinued 3 MG SC EVERY WEEK June 09, 2022 2:45pm August 23, 2022 9:35am Start: 06-09-2022 Dulaglutide (T rulicity) 3 mg/0.5 mL pen injector Active 3 MG SC EVERY WEEK June 09, 2022 2:45pm Start: 05-19-2022 End: 06-09-2022 Dulaglutide (Trulicity) 3 mg /0.5 mL pen injector Discontinued 3 MG SC EVERY WEEK May 18, 2022 11:00pm June 09, 2022 2:46pm Start: 04-28-2022 End: 05-19-2022 Dulaglutide (Trulicity) 1.5 mg/0.5 mL pen injector Discontinued 1.5 MG SC EVERY WEEK 2 April 27, 2022 11:00pm May 19, 2022 1:59pm Start: 03-29-2022 End: 04-28-2022 Dulaglutide (Trulicity) 0.75 mg/0.5 mL pen injector Discontinued 0.75 MG SC EVERY WEEK 2 March 28, 2022 11:00pm April 28, 2022 12:33pm ERGOCALCIFEROL, VITAMIN D2, (VITAMIN D2 ORAL) (4 sources) ERGOCALCIFEROL, VITAMIN D2, (VITAMIN D2 ORAL) Take by mouth. 0 Active Comment on above: Take by mouth. estrogens, conjugated (senior care) 0.625 mg/ml vaginal cream (8 sources) Estrogen Start : 10-30 End: 08-19 Conjugated Estrogens (Premarin) 0.625 mg/gram cream Discontinued 0 .Route .COMPLEX October 30, 2018 12:00am August 19, 2020 9:27am Peasized amount at vaginal opening every other night X 4 weeks then twice a week glucagon (rdna) 1 mg injection (2 sources) Antihypoglycemic Agent Start : 09-06 End: 09-06 glucagon (Glucagen) injection hydroCHLOROthiazide 25 mg oral tablet (8 sources) Thiazide Diuretic Start : 10-21 End: 01-17 take 25 mg by mouth once daily Hydrochlorothiazide Discontinued 25 MG PO DAILY October 21, 2017 12:00am January 17, 2018 11:09am hydroCHLOROthiazide 25 mg / lisinopril 20 mg oral tablet (14 sources) Thiazide Diuretic, Angiotensin Converting Enzyme Inhibitor Start : 12-07 take 1 tablet by mouth once daily LISINOPRIL-HYDROCHLOROTH IAZIDE 20-25 MG TABS 1 po daily LISINOPRIL-HYDROCHLOROTH IAZIDE [id number] Rica Padgett DO Start: 12-06-2014 End: 09-17-2022 take 1 tablet by mouth once daily Lisinopril-Hydrochlorothiazide Discontin ued 1 TAB PO DAILY December 05, 2014 11:00pm September 17, 2022 3:31pm Comment on above: Take 1 tablet by armen th once daily. Lactobacillus acidophilus (4 sources) LACTOBACILLUS AC IDOPHILUS (PROBIOTIC ORAL) Take by mouth. 0 Active Comment on above: Take by mouth. Lactobacillus Combination No.4 (8 sources) Start: 12-06-2014 End: 01-17-2018 Lactobacillus Combination No.4 Discontinued 1 EACH PO TWICE A DAY December 06, 2014 10:46am January 17, 2018 12:09pm Start: 12-06-2014 End: 01-17-2018 Lactobacillus Combination No .4 Discontinued 1 EACH PO TWICE A DAY December 05, 2014 11:00pm January 17, 2018 11:09am Magnesium (4 sources) take 1 tablet by mouth once daily Magnesium 250 mg tab Take 250 mg by mouth once daily. 0 Active Comment on above: Take 250 mg by mouth once daily. Medtronic Pain Pump (8 sources) Start: 08-30-2013 End: 01-17-2018 Medtronic Pain Pump Discontinued August 30, 2013 1:37pm January 17, 2018 12:09pm Start: 08-30-2013 End: 01-17-2018 Medtronic Pain Pump Disconti nued August 30, 2013 12:00am January 17, 2018 11:09am Meperidine (4 sources) Opioid Agonist Start: 09-06-2023 End: 09-06-2023 meperidine PF (Demerol) inje ction Start: 09-06-2023 End: 09-06-2023 meperidine PF (Demerol) inje ction osmotic 24 hr metFORMIN hydrochloride 1000 mg extended release oral tablet (20 sources) Biguanide Start: 10-30-2018 End: 09-13-2022 take 500 mg by mouth twice daily Metformin Discontinued 500 MG PO TWICE A DAY October 30, 2018 12:00am September 13, 2022 11:06am Start: 10-21-2017 End: 10-30-2018 take 500 mg by mouth twice daily at mealtime Metformin Discontinued 500 MG PO TWICE DAILY WITH MEALS October 21, 2017 12:00am October 30, 2018 8:53am take 1 tablet by armen th once daily at breakfast metFORMIN ER (GLUMETZA) 500 mg 24 hr tablet Take 500 mg by mouth daily with breakfast. 0 Active Comment on above: Take 500 mg by mouth daily with breakfast. 2 ml midazolam 5 mg/ml injection (6 sources) Benzodiazepine Start: End: midazolam PF (Versed) injection MULTIVITAMIN ORAL (4 sources) MULTIVITAMIN ORA L Take by mouth. 0 Active Comment on above: Take by mouth. MULTIVITAMIN W-MINERALS/LUTEIN (CENTRUM SILVER ORAL) (1 source) End: MULTIVITAMIN W-MINERALS/LUTEIN (CENTRUM SILVER ORAL) Take by mouth. 0 03/04/2015 Discontinued (Discontinued by Patient) Comment on above: Take by mouth. predniSONE 20 mg oral tablet (8 sources) Start: End: take 60 mg by mouth once daily at mealtime Prednisone Discontinued 60 MG PO DAILY April 20, 2018 11:00pm October 30, 2018 8:54am With food sertraline 50 mg oral tablet (14 sources) Serotonin Reuptake Inhibitor Start: 014 End: take 50 mg by mouth once daily Sertraline Discontinued 50 MG PO DAILY August 30, 2013 12:00am January 17, 2018 11:10am Comment on above: Take 50 mg by mouth once daily. VITAMIN B COMPLEX ORAL (4 sources) VITAMIN B COMPLE X ORAL Take by mouth. 0 Active Comment on above: Take by mouth. vitamin b12 0.1 mg oral tablet (1 source) Vitamin B12 End: take 1 tablet by mouth once daily cyanocobalamin (VITAMIN B-12) 100 mcg Tab Take 100 mcg by mouth once daily. 0 03/22/2016 Discontinued Comment on above: Take 100 mcg by mout h once daily. Problems Active Problems Problem Classification Problem Date Documented Da te Episodic/Chronic Abdominal pain (3 sources) Right upper quadrant pain; Translations: [Unspecified abdominal pain] Onset: 7 12-09-2016 Episodic Acquired foot deformities (2 sources) Hallux rigidus, left foot; Translations: [Hallux rigidus, left foot] Onset: 4 Chronic Chronic ulcer of skin (1 source) Non-pressure chronic ulcer of other part of left foot with fat layer exposed; Translations: [Non-pressure chronic ulcer of other part of left foot with fat layer exposed] Onset: 4 Chronic Diabetes mellitus with complications (8 sources) Neuropathy due to diabetes mellitus; Translations: [Type 2 diabetes mellitus with diabetic neuropathy, unspecified] Onset: 2 Chronic Diabetes mellitus without complication (7 sources) Type 2 diabetes mellitus without complications; Translations: [Diabetes mellitus] Onset: 0 Chronic Diabetes mellitus without complication (6 sources) Hyperglycemia; Translations: [Other abnormal glucose] 02-13-2021 Episodic Disorders of lipid metabolism (6 sources) Hyperlipidemia; Translations: [Hypercholesterolemia] Onset: 6 12-08-2015 Chronic Esophageal disorders (8 sources) Gastroesophageal reflux disease; Translations: [Gastro-esophageal reflux disease without esophagitis] 09-21-2022 Chronic Essential hypertension (10 sources) Benign essential hypertension; Translations: [Hypertensive disorder] Onset: 6 12-08-2015 Chronic Fracture of lower limb (2 sources) Stress fracture, left foot, subsequent encounter for fracture with delayed healing; Translations: [Stress fracture, left foot, initial encounter for fracture] Onset: 5 Episodic Gout and other crystal arthropathies (1 source) Gout, unspecified; Translations: [Gout, unspecified] Onset: 5 Chronic Headache; including migraine (1 source) Headache; including migraine; Translations: [Headache, unspecified] Onset: 5 Menopausal disorders (8 sources) Atrophic vaginitis; Translations: [Postmenopausal atrophic vaginitis] 09-21-2022 Chronic Mood disorders (2 sources) Severe recurrent major depression without psychotic features; Translations: [Major depressive disorder, recurrent severe without psychotic features] Onset: 3 10-02-2022 Chronic Osteoarthritis (20 sources) Unspecified osteoarthritis, unspecified site; Translations: [Arthropathy] Onset: 0 Chronic Other circulatory disease (1 source) Elevated blood-pressure reading, without diagnosis of hypertension; Translations: [Elevated blood-pressure reading, without diagnosis of hypertension] Onset: 0 Episodic Other connective tissue disease (1 source) Artificial knee joint present; Translations: [Presence of right artificial knee joint] Onset: 3 Chronic Other connective tissue disease (1 source) Presence of unspecified orthopedic joint implant; Translations: [Presence of unspecified orthopedic joint implant] Onset: 4 Chronic Other connective tissue disease (1 source) Radial styloid tenosynovitis [de Quervain]; Translations: [Radial styloid tenosynovitis [de Quervain]] Onset: 0 Episodic Other connective tissue disease (8 sources) H/O: musculoskeletal disease; Translations: [Personal history of other diseases of the musculoskeletal system and connective tissue] 09-21-2022 Episodic Other connective tissue disease (1 source) Cramp and spasm; Translations: [Cramp and spasm] Onset: 5 Episodic Other gastrointestinal disorders (2 sources) Diarrhea; Translations: [Diarrhea, unspecified] 09-06-2023 Episodic Other gastrointestinal disorders (3 sources) Diarrhea, unspecified; Translations: [Diarrhea, unspecified] Onset: 4 Episodic Other injuries and conditions due to external causes (1 source) Encounter for examination and observation following other accident; Translations: [Encounter for examination and observation following other accident] Onset: 5 Episodic Other lower respiratory disease (2 sources) Dyspnea on exertion; Translations: [Other forms of dyspnea] 09-21-2022 Episodic Other lower respiratory disease (2 sources) Hypoxia; Translations: [Hypoxemia] 09-21-2022 Episodic Other lower respiratory disease (2 sources) Other forms of dyspnea; Translations: [Other respiratory abnormalities] 09-17-2022 Episodic Other nervous system disorders (1 source) Carpal tunnel syndrome, right upper limb; Translations: [Carpal tunnel syndrome, right upper limb] Onset: 0 Chronic Other nervous system disorders (1 source) Other chronic pain; Translations: [Other chronic pain] Onset: 0 Chronic Other nervous system disorders (2 sources) Anesthesia of skin; Translations: [Anesthesia of skin] Onset: 0 Episodic Other nervous system disorders (8 sources) History of clinical finding in subject; Translations: [Personal history of other diseases of the nervous system and sense organs] 09-21-2022 Episodic Other non-traumatic joint disorders (8 sources) Shoulder pain; Translations: [Pain in right shoulder] 12-16-2019 Episodic Other nutritional; endocrine; and metabolic disorders (2 sources) Overweight; Translations: [Overweight] Onset: 7 12-09-2016 Chronic Other nutritional; endocrine; and metabolic disorders (3 sources) Obesity, unspecified; Translations: [Obesity, unspecified] Onset: 0 Chronic Other nutritional; endocrine; and metabolic disorders (3 sources) Body mass index (BMI) 39.0-39.9, adult; Translations: [Body mass index (BMI) 39.0-39.9, adult] Onset: 0 Chronic Other nutritional; endocrine; and metabolic disorders (8 sources) Obesity; Translations: [Obesity, unspecified] Onset: 1 12-31-2010 Chronic Other nutritional; endocrine; and metabolic disorders (2 sources) Alveolar hypoventilation; Translations: [Morbid (severe) obesity with alveolar hypoventilation] 09-21-2022 Chronic Other nutritional; endocrine; and metabolic disorders (1 source) 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; Translations: [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] Onset: 5 Chronic Other nutritional; endocrine; and metabolic disorders (1 source) Hypomagnesemia; Translations: [Hypomagnesemia] Onset: 5 Chronic Other nutritional; endocrine; and metabolic disorders (2 sources) Morbid (severe) obesity due to excess calories; Translations: [Morbid (severe) obesity due to excess calories] Onset: 4 Chronic Other nutritional; endocrine; and metabolic disorders (8 sources) H/O: diabetes mellitus; Translations: [Personal history of other endocrine, nutritional and metabolic disease] 09-21-2022 Episodic Other screening for suspected conditions (not mental disorders or infectious disease) (1 source) Breast neoplasm screening status; Translations: [Encounter for screening mammogram for malignant neoplasm of breast] Episodic Phlebitis; thrombophlebitis and thromboembolism (8 sources) H/O: Deep vein thrombosis; Translations: [Personal history of other venous thrombosis and embolism] 09-21-2022 Episodic Pulmonary heart disease (11 sources) Pulmonary embolism; Translations: [Personal history of pulmonary embolism] Onset: 6 12-08-2015 Episodic Residual codes; unclassified (1 source) Sleep apnea; Translations: [Sleep apnea, unspecified] Onset: 3 Chronic Residual codes; unclassified (1 source) Primary central sleep apnea; Translations: [Primary central sleep apnea] Onset: 5 Chronic Residual codes; unclassified (8 sources) Edema of lower extremity; Translations: [Localized edema] 12-09-2020 Episodic Residual codes; unclassified (1 source) Pain, unspecified; Translations: [Pain] Onset: 2 Episodic Residual codes; unclassified (1 source) Pain; Translations: [Pain, unspecified] 05-19-2022 Episodic Screening and history of mental health and substance abuse codes (1 source) Personal history of nicotine dependence; Translations: [Personal history of nicotine dependence] Onset: 0 Episodic Skin and subcutaneous tissue infections (10 sources) Cellulitis of lower leg; Translations: [Cellulitis and abscess of leg, except foot] 05-22-2021 Episodic Spondylosis; intervertebral disc disorders; other back problems (18 sources) Inflammation of sacroiliac joint; Translations: [Sacroiliitis, not elsewhere classified] Onset: 3 12-31-2010 Chronic Spondylosis; intervertebral disc disorders; other back problems (8 sources) Low back pain; Translations: [Low back pain] 08-12-2019 Episodic Sprains and strains (8 sources) Shoulder strain; Translations: [Strain of unspecified muscle, fascia and tendon at shoulder and upper arm level, left arm, initial encounter] 09-21-2022 Episodic Substance-related disorders (1 source) Opioid dependence, uncomplicated; Translations: [Opioid dependence, uncomplicated] Onset: 4 Chronic Systemic lupus erythematosus and connective tissue disorders (8 sources) Connective tissue disease overlap syndrome; Translations: [Other overlap syndromes] 09-21-2022 Chronic Thyroid disorders (1 source) Hypothyroidism, unspecified; Translations: [Hypothyroidism, unspecified] Onset: 5 Chronic Unclassified (2 sources) Body mass index (BMI) 40.0-44.9, adult; Translations: [Body mass index (BMI) 40.0-44.9, adult] Onset: 7 12-09-2016 Chronic Unclassified (2 sources) Therapeutic drug monitoring assay ; Translations: [Encounter for therapeutic drug level monitoring] Onset: 6 12-08-2015 Unclassified (2 sources) Gynecologic examination ; Translations: [Encounter for gynecological examination (general) (routine) without abnormal findings] Onset: 7 07-25-2017 Unclassified (2 sources) Dilatation of bile duct ; Translations: [Other specified diseases of biliary tract] Onset: 7 12-09-2016 Unclassified (2 sources) Screening mammography ; Translations: [Encounter for screening mammogram for malignant neoplasm of breast] Onset: 7 07-25-2017 Unclassified (2 sources) HIGH SUGAR (492 AT HOME) 02-13-2021 Comment on above: HIGH SUGAR (492 AT H OME) Unclassified (2 sources) RED SPOT ON LOWER LFT LEG/POST KNEE REPLACEMENT 05-21-2021 Comment on above: RED SPOT ON LOWER LF T LEG/POST KNEE REPLACEMENT Viral infection (5 sources) Disease caused by 2019-nCoV; Translations: [COVID-19] 09-21-2022 Episodic Past or Other Problems Problem Classification Problem Date Documented Date Episodic/Chronic Acquired foot deformities (11 sources) Talipes planus; Translations: [Flat foot [pes planus] (acquired), left foot] Onset: 05-19-2022 Episodic Malaise and fatigue (4 sources) Fatigue; Translations: [Other fatigue] Onset: 12-08-2015 12-08-2015 Episodic Mood disorders (1 source) Mood disorder due to known physiological condition with depressive features; Translations: [Mood disorder due to known physiological condition with depressive features] Onset: 02-20-2024 Episodic Mood disorders (2 sources) Mood disorders Onset: 10-02-2022 Resolved: 10-02-2022 10-02-2022 Other aftercare (2 sources) Encounter for other orthopedic aftercare; Translations: [Encounter for other orthopedic aftercare] Onset: 03-04-2024 Episodic Other connective tissue disease (2 sources) Fibromyalgia; Translations: [Fibromyalgia] Onset: 02-08-2020 Episodic Other lower respiratory disease (4 sources) Hypoxemia; Translations: [Hypoxemia] Onset: 07-30-2024 09-17-2022 Episodic Residual codes; unclassified (5 sources) Family history of diabetes mellitus; Translations: [Family history of diabetes mellitus] Onset: 12-31-2010 12-31-2010 Episodic Unclassified (3 sources) calcium calcifications 03-17-2022 Unclassified (3 sources) hx of plantar fasciotomy 03-17-2022 Results Test Name Value Interpretation Reference Range Facility CBC W/Diff, Automatedon 06-0 Absolute Lymph 2.35 X10 3/uL Normal 0.83-4.51 [facility] Comment on above: Performed By: #### L 500.4050, L100.0100, L501.1400, L501.6710, L501.15802, L501.5200, L506.0400, L501.9520, L501.2450, L101.9900 ####[facility] [id number] [place], [address] Absolute Neut 6.7 X10 3/uL Normal 2.0-7.7 [facility] Comment on above: Performed By: #### L 500.4050, L100.0100, L501.1400, L501.6710, L501.05089, L501.5200, L506.0400, L501.9520, L501.2450, L101.9900 ####[facility] [id number] [place], [place], [phone]) Basophils/100 WBC (Bld) 0.6 % Normal 0-1 [facility] Comment on above: Performed By: #### L 500.4050, L100.0100, L501.1400, L501.6710, L501.20168, L501.5200, L506.0400, L501.9520, L501.2450, L101.9900 ####[facility] [id number] [place], [place], [phone] Eosinophils/100 WBC (Bld) 1.0 % Normal 0-5 [facility] Comment on above: Performed By: #### L 500.4050, L100.0100, L501.1400, L501.6710, L501.04545, L501.5200, L506.0400, L501.9520, L501.2450, L101.9900 ####[facility] [id number] [place], [place], [phone]) Erythrocyte distribution width (RBC) [Ratio] 13.2 % Normal 11.6-14.6 [facility] Comment on above: Performed By: #### L 500.4050, L100.0100, L501.1400, L501.6710, L501.33517, L501.5200, L506.0400, L501.9520, L501.2450, L101.9900 ####[facility] [address] [place], [address] Hematocrit (Bld) [Volume fraction] 43.4 % Normal 37-47 [facility] Comment on above: Performed By: #### L 500.4050, L100.0100, L501.1400, L501.6710, L501.35938, L501.5200, L506.0400, L501.9520, L501.2450, L101.9900 ####[facility] [id number] [place], [place], [phone] Hemoglobin (Bld) [Mass/Vol] 14.5 g/dL Normal 12.0-15.0 [facility] Comment on above: Performed By: #### L 500.4050, L100.0100, L501.1400, L501.6710, L501.90004, L501.5200, L506.0400, L501.9520, L501.2450, L101.9900 ####[facility] [id number] [place], [address] IG% 0.500 Normal 0.0-0.9 [facility] Comment on above: Result Comment: IG% - Immature Granulocytes (promyelocytes, myelocytes andmetamyelocytes) > 1% indicates that a LEFT SHIFT is Present. Performed By: #### L 500.4050, L100.0100, L501.1400, L501.6710, L501.08111, L501.5200, L506.0400, L501.9520, L501.2450, L101.9900 ####[facility] [address] [place], [address] Lymphocytes/100 WBC (Bld) 24.2 % Normal 19-41 [facility] Comment on above: Performed By: #### L 500.4050, L100.0100, L501.1400, L501.6710, L501.56153, L501.5200, L506.0400, L501.9520, L501.2450, L101.9900 ####[facility] [address] [facility] [place], [address] MCH (RBC) [Entitic mass] 29.4 pg Normal 27.0-32.0 [facility] Comment on above: Performed By: #### L 500.4050, L100.0100, L501.1400, L501.6710, L501.50176, L501.5200, L506.0400, L501.9520, L501.2450, L101.9900 ####[facility] [address] [facility] [place], [address] MCHC (RBC) [Mass/Vol] 33.4 g/dL Normal 32-36 [facility] Comment on above: Performed By: #### L 500.4050, L100.0100, L501.1400, L501.6710, L501.59878, L501.5200, L506.0400, L501.9520, L501.2450, L101.9900 ####[facility] [address] [facility] [place], [address] MCV (RBC) [Entitic vol] 87.9 fL Normal 81-99 [facility] Comment on above: Performed By: #### L 500.4050, L100.0100, L501.1400, L501.6710, L501.92458, L501.5200, L506.0400, L501.9520, L501.2450, L101.9900 ####[facility] [address] [facility] [place], [place], [phone] Monocytes/100 WBC (Bld) 5.1 % Normal 0-10 [facility] Comment on above: Performed By: #### L 500.4050, L100.0100, L501.1400, L501.6710, L501.55647, L501.5200, L506.0400, L501.9520, L501.2450, L101.9900 ####[facility] [address] [place], [place], [phone] Neutrophils/100 WBC (Bld) 68.6 % Normal 47-70 [facility] Comment on above: Performed By: #### L 500.4050, L100.0100, L501.1400, L501.6710, L501.42853, L501.5200, L506.0400, L501.9520, L501.2450, L101.9900 ####[facility] [address] [place], [place], [phone] Nucleated RBC (Bld) [#/Vol] 0 10*3/uL Normal 0-5 [facility] Comment on above: Performed By: #### L 500.4050, L100.0100, L501.1400, L501.6710, L501.14577, L501.5200, L506.0400, L501.9520, L501.2450, L101.9900 ####[facility] [address] [place], [place], [phone] Platelet mean volume (Bld) [Entitic vol] 9.6 fL Normal 6.2-12.0 [facility] Comment on above: Performed By: #### L 500.4050, L100.0100, L501.1400, L501.6710, L501.22138, L501.5200, L506.0400, L501.9520, L501.2450, L101.9900 ####[facility] [address] [place], [address] Platelets (Bld) [#/Vol] 251 10*3/uL Normal 150-450 [facility] Comment on above: Performed By: #### L 500.4050, L100.0100, L501.1400, L501.6710, L501.28172, L501.5200, L506.0400, L501.9520, L501.2450, L101.9900 ####[facility] [address] [place], [address] RBC (Bld) [#/Vol] 4.94 10*6/uL Normal 4.2-5.4 [facility] Comment on above: Performed By: #### L 500.4050, L100.0100, L501.1400, L501.6710, L501.92504, L501.5200, L506.0400, L501.9520, L501.2450, L101.9900 ####[facility] [address] [place], [address] RDW SD 41.8 fl Normal 35.1-43.9 [facility] Comment on above: Performed By: #### L 500.4050, L100.0100, L501.1400, L501.6710, L501.17154, L501.5200, L506.0400, L501.9520, L501.2450, L101.9900 ####[facility] [address] [place], [address] WBC (Bld) [#/Vol] 9.7 10*3/uL Normal 4.4-11.0 [facility] Comment on above: Performed By: #### L 500.4050, L100.0100, L501.1400, L501.6710, L501.76547, L501.5200, L506.0400, L501.9520, L501.2450, L101.9900 ####[facility] [address] [place], [address] CRPon 02-04-2025 C-REACTIVE PROT 11.80 mg/L High 0.0-3.0 [facility] Comment on above: Performed By: #### L 500.4050, L100.0100, L501.1400, L501.6710, L501.01482, L501.5200, L506.0400, L501.9520, L501.2450, L101.9900 ####[facility] [address] [place], [address] Comprehensive Metabolic Prof ilon 02-04-2025 Albumin [Mass/Vol] 4.3 g/dL Normal 3.4-4.8 [facility] Comment on above: Performed By: #### L 500.4050, L100.0100, L501.1400, L501.6710, L501.91142, L501.5200, L506.0400, L501.9520, L501.2450, L101.9900 ####[facility] [address] [place], [place], [phone] Albumin/Globulin [Mass ratio] 1.4 {ratio} Normal 0.9-2.4 [facility] Comment on above: Performed By: #### L 500.4050, L100.0100, L501.1400, L501.6710, L501.57196, L501.5200, L506.0400, L501.9520, L501.2450, L101.9900 ####[facility] [address] [place], [address] ALK PHOS 112 U/L High 35-104 [facility] Comment on above: Performed By: #### L 500.4050, L100.0100, L501.1400, L501.6710, L501.36903, L501.5200, L506.0400, L501.9520, L501.2450, L101.9900 ####[facility] [address] [place], [address] ALT [Catalytic activity/Vol] 80 U/L High <=34 [facility] Comment on above: Performed By: #### L 500.4050, L100.0100, L501.1400, L501.6710, L501.06725, L501.5200, L506.0400, L501.9520, L501.2450, L101.9900 ####[facility] [address] [place], [address] AST [Catalytic activity/Vol] 60 U/L High <=31 [facility] Comment on above: Performed By: #### L 500.4050, L100.0100, L501.1400, L501.6710, L501.84277, L501.5200, L506.0400, L501.9520, L501.2450, L101.9900 ####[facility] [address] [place], [address] Bilirubin [Mass/Vol] 0.40 mg/dL Normal 0.00-1.30 [facility] Comment on above: Performed By: #### L 500.4050, L100.0100, L501.1400, L501.6710, L501.03960, L501.5200, L506.0400, L501.9520, L501.2450, L101.9900 ####[facility] [address] [place], [address] BUN/CRE 13.8 RATIO Normal 10-20 [facility] Comment on above: Performed By: #### L 500.4050, L100.0100, L501.1400, L501.6710, L501.68997, L501.5200, L506.0400, L501.9520, L501.2450, L101.9900 ####[facility] [address] [place], [address] Calcium [Mass/Vol] 9.5 mg/dL Normal 7.6-11.0 [facility] Comment on above: Performed By: #### L 500.4050, L100.0100, L501.1400, L501.6710, L501.16383, L501.5200, L506.0400, L501.9520, L501.2450, L101.9900 ####[facility] [address] [place], [address] Chloride [Moles/Vol] 101 mmol/L Normal 98-108 [facility] Comment on above: Performed By: #### L 500.4050, L100.0100, L501.1400, L501.6710, L501.50588, L501.5200, L506.0400, L501.9520, L501.2450, L101.9900 ####[facility] [address] [place], [address] CO2 [Moles/Vol] 24.5 mmol/L Normal 21.0-32.0 [facility] Comment on above: Performed By: #### L 500.4050, L100.0100, L501.1400, L501.6710, L501.50484, L501.5200, L506.0400, L501.9520, L501.2450, L101.9900 ####[facility] [address] [place], [address] Creatinine [Mass/Vol] 0.78 mg/dL Normal 0.70-1.20 [facility] Comment on above: Performed By: #### L 500.4050, L100.0100, L501.1400, L501.6710, L501.70309, L501.5200, L506.0400, L501.9520, L501.2450, L101.9900 ####[facility] [address] [place], [place], [phone] GAP 16 High 5-15 [facility] Comment on above: Performed By: #### L 500.4050, L100.0100, L501.1400, L501.6710, L501.26582, L501.5200, L506.0400, L501.9520, L501.2450, L101.9900 ####[facility] [address] [place], [place], [phone] GFR/1.73 sq M.predicted among non-blacks MDRD (S/P/Bld) [Vol rate/Area] 84 mL/min/{1.73_m2} Normal >60 [facility] Comment on above: Result Comment: mL/m in/1.73m2 CKD-EPI Creatinine Equation (2020) Performed By: #### L 500.4050, L100.0100, L501.1400, L501.6710, L501.03279, L501.5200, L506.0400, L501.9520, L501.2450, L101.9900 ####[facility] [address] [place], [place], [phone] Globulin (S) [Mass/Vol] 3.1 g/dL Normal 2.2-4.2 [facility] Comment on above: Performed By: #### L 500.4050, L100.0100, L501.1400, L501.6710, L501.01093, L501.5200, L506.0400, L501.9520, L501.2450, L101.9900 ####[facility] [address] [place], [place], [phone] Glucose [Mass/Vol] 247 mg/dL High 70-99 [facility] Comment on above: Performed By: #### L 500.4050, L100.0100, L501.1400, L501.6710, L501.30449, L501.5200, L506.0400, L501.9520, L501.2450, L101.9900 ####[facility] [address] [place], [address] Potassium [Moles/Vol] 4.6 mmol/L Normal 3.3-5.1 [facility] Comment on above: Performed By: #### L 500.4050, L100.0100, L501.1400, L501.6710, L501.87767, L501.5200, L506.0400, L501.9520, L501.2450, L101.9900 ####[facility] [address] [place], [address] Sodium [Moles/Vol] 141 mmol/L Normal 133-145 [facility] Comment on above: Performed By: #### L 500.4050, L100.0100, L501.1400, L501.6710, L501.18215, L501.5200, L506.0400, L501.9520, L501.2450, L101.9900 ####[facility] [address] [place], [address] T PROT 7.4 g/dL Normal 5.9-8.4 [facility] Comment on above: Performed By: #### L 500.4050, L100.0100, L501.1400, L501.6710, L501.38789, L501.5200, L506.0400, L501.9520, L501.2450, L101.9900 ####[facility] [address] [place], [address] Urea nitrogen [Mass/Vol] 11 mg/dL Normal 4-19 [facility] Comment on above: Performed By: #### L 500.4050, L100.0100, L501.1400, L501.6710, L501.11488, L501.5200, L506.0400, L501.9520, L501.2450, L101.9900 ####[facility] [address] [place], [address] Erythrocyte Sed Rateon 02-04 SED RATE 7 mm/hr Normal 0-30 [facility] Comment on above: Performed By: #### L 500.4050, L100.0100, L501.1400, L501.6710, L501.13521, L501.5200, L506.0400, L501.9520, L501.2450, L101.9900 ####[facility] [address] [place], [address] Free T3on 02-04-2025 Free T3 [Mass/Vol] 2.4 pg/mL Normal 2.18-3.98 [facility] Comment on above: Performed By: #### L 500.4050, L100.0100, L501.1400, L501.6710, L501.41261, L501.5200, L506.0400, L501.9520, L501.2450, L101.9900 ####[facility] [address] [place], [place], [phone] Lipaseon 02-04-2025 Lipase [Catalytic activity/Vol] 42 U/L Normal 13-75 [facility] Comment on above: Result Comment: Sherri martinez note:LIPASE revised reference range effective 22.New Lipase methodology. Expected to produce lower valuesthan the previous assay method.NEW Reference Range: 13 - 75 U/L Performed By: #### L 500.4050, L100.0100, L501.1400, L501.6710, L501.30971, L501.5200, L506.0400, L501.9520, L501.2450, L101.9900 ####[facility] [address] [place], [address] Magnesiumon 02-04-2025 Magnesium [Mass/Vol] 1.8 mg/dL Normal 1.5-2.2 [facility] Comment on above: Performed By: #### L 500.4050, L100.0100, L501.1400, L501.6710, L501.92550, L501.5200, L506.0400, L501.9520, L501.2450, L101.9900 ####[facility] [address] [place], [place], [phone] T4 Free Directon 02-04-2025 T4 FREE DIRECT 1.20 ng/dL Normal 0.76-1.46 [facility] Comment on above: Performed By: #### L 500.4050, L100.0100, L501.1400, L501.6710, L501.85367, L501.5200, L506.0400, L501.9520, L501.2450, L101.9900 ####[facility] [address] [place], [place], [phone] Thyroid Stim Hormone (TSH)on 02-04-2025 TSH 0.755 uIU/mL Normal 0.300-4.200 [facility] Comment on above: Performed By: #### L 500.4050, L100.0100, L501.1400, L501.6710, L501.34737, L501.5200, L506.0400, L501.9520, L501.2450, L101.9900 ####[facility] [address] [place], [place], [phone] Uric Acidon 02-04-2025 URIC 6.8 mg/dL High 2.6-6.0 [facility] Comment on above: Result Comment: The drugs N-Acetylcysteine and Metamizole may falselydepress this assay. Performed By: #### L 500.4050, L100.0100, L501.1400, L501.6710, L501.93496, L501.5200, L506.0400, L501.9520, L501.2450, L101.9900 ####[facility] [address] [place], [address] MR/BMS.BPon 01-07-2025 MR/BMS.BP Normal [facility] Basic Metabolic Profile (BMP )on 01-03-2025 BUN/CRE 18.4 RATIO Normal 10-20 [facility] Comment on above: Performed By: #### L 506.1001, L500.2500 ####[facility] [address] [place], [address] Calcium [Mass/Vol] 8.7 mg/dL Normal 7.6-11.0 [facility] Comment on above: Performed By: #### L 506.1001, L500.2500 ####[facility] [address] [place], [address] Chloride [Moles/Vol] 100 mmol/L Normal 98-108 [facility] Comment on above: Performed By: #### L 506.1001, L500.2500 ####[facility] [address] [place], [address] CO2 [Moles/Vol] 25.8 mmol/L Normal 21.0-32.0 [facility] Comment on above: Performed By: #### L 506.1001, L500.2500 ####[facility] [address] [place], [address] Creatinine [Mass/Vol] 0.71 mg/dL Normal 0.70-1.20 [facility] Comment on above: Performed By: #### L 506.1001, L500.2500 ####[facility] [address] [place], [address] GAP 12 Normal 5-15 [facility] Comment on above: Performed By: #### L 506.1001, L500.2500 ####[facility] [address] [place], [address] GFR/1.73 sq M.predicted among non-blacks MDRD (S/P/Bld) [Vol rate/Area] 94 mL/min/{1.73_m2} Normal >60 [facility] Comment on above: Result Comment: mL/m in/1.73m2 CKD-EPI Creatinine Equation (2020) Performed By: #### L 506.1001, L500.2500 ####[facility] [address] [place], [address] Glucose [Mass/Vol] 293 mg/dL High 70-99 [facility] Comment on above: Performed By: #### L 506.1001, L500.2500 ####[facility] [address] [place], [address] Potassium [Moles/Vol] 4.8 mmol/L Normal 3.3-5.1 [facility] Comment on above: Performed By: #### L 506.1001, L500.2500 ####[facility] [address] [place], [address] Sodium [Moles/Vol] 138 mmol/L Normal 133-145 [facility] Comment on above: Performed By: #### L 506.1001, L500.2500 ####[facility] [address] [place], [address] Urea nitrogen [Mass/Vol] 13 mg/dL Normal 4-19 [facility] Comment on above: Performed By: #### L 506.1001, L500.2500 ####[facility] [address] [place], [address] Vitamin D,25 Hydroxyon 01-03 Vitamin D 25-OH 32.3 ng/mL Normal 30-100 [facility] Comment on above: Result Comment: Ashley min D StatusDeficiency: <20 ng/mL (50nmol/L)Insufficiency: 20-30 ng/mL (50-75 nmol/L)Sufficiency: 30-100 ng/mL (75-250 nmol/L)Toxicity: >100 ng/mL (>250 nmol/L) Performed By: #### L 506.1001, L500.2500 ####[facility] [address] [facility] [address] Echo Complete W/ Contraston 11-29-2024 Echo Complete W/ Contrast Normal [facility] Brain/Head without Contrasto n 11-20-2024 Brain/Head without Contrast Normal [facility] Emergency Department Summary on 11-20-2024 Emergency Department Summary Normal [facility] Lumbar Spine 2 or 3 Viewson 11-20-2024 Lumbar Spine 2 or 3 Views Normal [facility] Spine Cervical without Contr ason 11-20-2024 Spine Cervical without Contras Normal [facility] Thoracic Spine 3 Viewson Thoracic Spine 3 Views Normal [facility] Visit Reporton 11-19-2024 Endocrinology Visit Report Normal [facility] Emergency Department Summary on 10-15-2024 Emergency Department Summary Normal [facility] Emergency Department Summary on 10-12-2024 Emergency Department Summary Normal [facility] Endocrinology Visit Reporton 10-08-2024 Endocrinology Visit Report Normal [facility] MR/BMS.BPon 09-03-2024 MR/BMS.BP Normal [facility] Bedside Glucoseon 07-28-2024 FINGERSTICK GLU 200 mg/dL High [address] [place] [address] Comment on above: Result Comment: MARCELLA GEMENT OF PATIENT CARE PER NURSING PROTOCOL Performed By: #### L 501.080 ####[facility] [address] [facility] [address] FINGERSTICK GLU 202 mg/dL High [address] [place] [address] Comment on above: Result Comment: MARCELLA GEMENT OF PATIENT CARE PER NURSING PROTOCOL Performed By: #### L 501.080 ####[facility] [address] [facility] [address] FINGERSTICK GLU 233 mg/dL High [address] [place] [address] Comment on above: Result Comment: MARCELLA GEMENT OF PATIENT CARE PER NURSING PROTOCOL Performed By: #### L 501.080 ####[facility] [address] [place], [address] Spine Lumbar without Contras ton 07-28-2024 Spine Lumbar without Contrast Normal [facility] 12 Lead EKGon 07-27-2024 12 Lead EKG Normal [facility] Basic Metabolic Profile (BMP )on 07-27-2024 BUN/CRE 14.0 RATIO Normal 10-20 [facility] Comment on above: Performed By: #### L 100.0100, L500.2500 ####[facility] [address] [place], [address] CA,Total 8.9 mg/dL Normal 8.5-10.1 [facility] Comment on above: Performed By: #### L 100.0100, L500.2500 ####[facility] [address] [place], [address] Chloride [Moles/Vol] 99 mmol/L Normal 98-107 [facility] Comment on above: Performed By: #### L 100.0100, L500.2500 ####[facility] [address] [place], [address] CO2 [Moles/Vol] 30.0 mmol/L Normal 21.0-32.0 [facility] Comment on above: Performed By: #### L 100.0100, L500.2500 ####[facility] [address] [place], [address] Creatinine [Mass/Vol] 1.00 mg/dL Normal 0.55-1.02 [facility] Comment on above: Result Comment: The validity of the calculated GFR GFRAA in patients over70 years has not been determined. Clinical correlation isessential. Performed By: #### L 100.0100, L500.2500 ####[facility] [address] [place], [address] ECRCL 69.70 ml/min Normal [facility] Comment on above: Performed By: #### L 100.0100, L500.2500 ####[facility] [address] [place], [address] EST GFR - AA 71 mL/min Normal >60 [facility] Comment on above: Result Comment: Afri can Green[place] GFR Calc Performed By: #### L 100.0100, L500.2500 ####[facility] [address] [place], [address] GAP 7 Normal 5-15 [facility] Comment on above: Performed By: #### L 100.0100, L500.2500 ####[facility] [address] [place], [address] GFR/1.73 sq M.predicted among non-blacks MDRD (S/P/Bld) [Vol rate/Area] 59 mL/min/{1.73_m2} Low >60 [facility] Comment on above: Result Comment: Non- GFR Calc Performed By: #### L 100.0100, L500.2500 ####[facility] [address] [place], [address] Glucose [Mass/Vol] 421 mg/dL High 74-106 [facility] Comment on above: Result Comment: Gluc ose result greater than or equal to 200 mg/dLsuggests DIABETES MELLITUS per A.D.A. criteria. Performed By: #### L 100.0100, L500.2500 ####[facility] [address] [place], [address] Potassium [Moles/Vol] 4.6 mmol/L Normal 3.5-5.1 [facility] Comment on above: Result Comment: Slig ht Hemolysis, Result may be falsely increased. Performed By: #### L 100.0100, L500.2500 ####[facility] [address] [place], [address] Sodium [Moles/Vol] 135 mmol/L Low 136-145 [facility] Comment on above: Performed By: #### L 100.0100, L500.2500 ####[facility] [address] [place], [address] Urea nitrogen [Mass/Vol] 14 mg/dL Normal 7-18 [facility] Comment on above: Performed By: #### L 100.0100, L500.2500 ####[facility] [address] [place], [address] Bedside Glucoseon 07-27-2024 FINGERSTICK GLU 290 mg/dL High 74-106 [facility] Comment on above: Result Comment: MARCELLA GEMENT OF PATIENT CARE PER NURSING PROTOCOL Performed By: #### L 501.080 ####[facility] [address] [place], [address] FINGERSTICK GLU 360 mg/dL High 74-106 [facility] Comment on above: Result Comment: MARCELLA GEMENT OF PATIENT CARE PER NURSING PROTOCOL Performed By: #### L 501.080 ####[facility] [address] [place], [address] CBC W/Diff, Automatedon 06-30 Absolute Lymph 2.09 X10 3/uL Normal 0.83-4.51 [facility] Comment on above: Performed By: #### L 100.0100, L500.2500 ####[facility] [address] [place], [address] Absolute Neut 4.9 X10 3/uL Normal 2.0-7.7 [facility] Comment on above: Performed By: #### L 100.0100, L500.2500 ####[facility] [address] [place], [address] Basophils/100 WBC (Bld) 0.4 % Normal 0-1 [facility] Comment on above: Performed By: #### L 100.0100, L500.2500 ####[facility] [address] [place], [address] Eosinophils/100 WBC (Bld) 1.8 % Normal 0-5 [facility] Comment on above: Performed By: #### L 100.0100, L500.2500 ####[facility] [address] [place], [address] Erythrocyte distribution width (RBC) [Ratio] 13.5 % Normal 11.6-14.6 [facility] Comment on above: Performed By: #### L 100.0100, L500.2500 ####[facility] [address] [place], [address] Hematocrit (Bld) [Volume fraction] 44.6 % Normal 37-47 [facility] Comment on above: Performed By: #### L 100.0100, L500.2500 ####[facility] [address] [place], [address] Hemoglobin (Bld) [Mass/Vol] 14.2 g/dL Normal 12.0-15.0 [facility] Comment on above: Performed By: #### L 100.0100, L500.2500 ####[facility] [address] [place], [address] IG% 0.500 Normal 0.0-0.9 [facility] Comment on above: Result Comment: IG% - Immature Granulocytes (promyelocytes, myelocytes andmetamyelocytes) > 1% indicates that a LEFT SHIFT is Present. Performed By: #### L 100.0100, L500.2500 ####[facility] [address] [place], [address] Lymphocytes/100 WBC (Bld) 27.5 % Normal 19-41 [facility] Comment on above: Performed By: #### L 100.0100, L500.2500 ####[facility] [address] [place], [address] MCH (RBC) [Entitic mass] 28.9 pg Normal 27.0-32.0 [facility] Comment on above: Performed By: #### L 100.0100, L500.2500 ####[facility] [address] [place], [address] MCHC (RBC) [Mass/Vol] 31.8 g/dL Low 32-36 [facility] Comment on above: Performed By: #### L 100.0100, L500.2500 ####[facility] [address] [place], [address] MCV (RBC) [Entitic vol] 90.7 fL Normal 81-99 [facility] Comment on above: Performed By: #### L 100.0100, L500.2500 ####[facility] [address] [place], [address] Monocytes/100 WBC (Bld) 5.5 % Normal 0-10 [facility] Comment on above: Performed By: #### L 100.0100, L500.2500 ####[facility] [address] [place], [address] Neutrophils/100 WBC (Bld) 64.3 % Normal 47-70 [facility] Comment on above: Performed By: #### L 100.0100, L500.2500 ####[facility] [address] [place], [address] Nucleated RBC (Bld) [#/Vol] 0 10*3/uL Normal 0-5 [facility] Comment on above: Performed By: #### L 100.0100, L500.2500 ####[facility] [address] [place], [address] Platelet mean volume (Bld) [Entitic vol] 9.3 fL Normal 6.2-12.0 [facility] Comment on above: Performed By: #### L 100.0100, L500.2500 ####[facility] [address] [place], [address] Platelets (Bld) [#/Vol] 234 10*3/uL Normal 150-450 [facility] Comment on above: Performed By: #### L 100.0100, L500.2500 ####[facility] [address] [place], [address] RBC (Bld) [#/Vol] 4.92 10*6/uL Normal 4.2-5.4 [facility] Comment on above: Performed By: #### L 100.0100, L500.2500 ####[facility] [address] [place], [address] RDW SD 44.1 fl High 35.1-43.9 [facility] Comment on above: Performed By: #### L 100.0100, L500.2500 ####[facility] [address] [place], [address] WBC (Bld) [#/Vol] 7.6 10*3/uL Normal 4.4-11.0 [facility] Comment on above: Performed By: #### L 100.0100, L500.2500 ####[facility] [address] [place], [address] CTA Chest W/WO Contraston CTA Chest W/WO Contrast Normal [facility] Chest PA and Lateralon 07-27 Chest PA and Lateral Normal [facility] Emergency Department Summary on 07-27-2024 Emergency Department Summary Normal [facility] H AND P Exam - Hospitaliston 07-27-2024 H&P Exam - Hospitalist Normal [facility] L501.4020on 07-27-2024 TROPONIN-I HS 5 pg/mL Normal 3.0-54.0 [facility] Comment on above: Order Comment: 'TROP ' Serial specimen #1, #2 or #3: 1 Result Comment: Plea se Note: New Test Units and Gender Specific Reference Ranges. For more information see Policy Stat Procedure [place] High Sensitivity Troponin (TNIH) and attachments. Performed By: #### L 501.4020 ####[facility] [address] [place], [place], [address] Miscellaneous Lab Procedureo n 07-19-2024 [facility] LAB TEST Normal [facility] Comment on above: Order Comment: [id number] URINE TOX Result Comment: [id number] 6+OXYCODONE-BUND (ng/mL)DRUG RESULT SCREEN CUTOFF____ Amphetamines,Urine Negative ng/mL 1000Amphetamine test includes Amphetamine and Methamphetamine.Barbiturates Negative ng/mL 200Benzodiazepines Negative ng/mL 200Cannabinoid Negative ng/mL 20Cocaine (Metab) Negative ng/mL 300Opiates POSITIVE ng/mL 300 Opiates test includes Codeine, Morphine, Hydromorphone, Hydrocodone. Codeine Negative 300 Morphine Negative 300 Hydromorphone POSITIVE Hydromorphone Conf, 1121 ng/mL 300 MS, URHydrocodone Negative 300Oxycodone/Oxymorphone,Urine POSITIVE ng/mL 300 Test includes Oxycodone and Oxymorphone.Oxycodone POSITIVE Oxycodone Conf, 749 ng/mL 300 MS, UR Oxymorphone Negative 300 TESTING PERFORMED AT [facility]. ORIGINAL REPORT ON FILE IN LAB CONTAINS ADDITIONAL TEST SITE INFORMATION. Performed By: #### L 400.2011, L801.1541, L505.5000 ####[facility] [address] [place], [address] Urinalysis, Routine (Dipstic k)on 07-13-2024 BILIRUBIN URINE Negative Normal Negative [facility] Comment on above: Order Comment: CLEAN CATCH Performed By: #### L 400.2010, L801.1541, L505.5000 ####[facility] [address] [place], [address] Clarity (U) Clear Normal Clear [facility] Comment on above: Order Comment: CLEAN CATCH Performed By: #### L 400.2010, L801.1541, L505.5000 ####[facility] [address] [place], [address] Color (U) Yellow Normal Yellow [facility] Comment on above: Order Comment: CLEAN CATCH Performed By: #### L 400.2010, L801.1541, L505.5000 ####[facility] [address] [place], [address] GLUCOSE, UR Normal Normal Normal [facility] Comment on above: Order Comment: CLEAN CATCH Performed By: #### L 400.2010, L801.1541, L505.5000 ####[facility] [address] [place], [address] KETONE UR Negative Normal Negative [facility] Comment on above: Order Comment: CLEAN CATCH Performed By: #### L 400.2010, L801.1541, L505.5000 ####[facility] [address] [place], [address] LEUK ESTERASE 25 /ul Abnormal Negative [facility] Comment on above: Order Comment: CLEAN CATCH Performed By: #### L 400.2010, L801.1541, L505.5000 ####[facility] [address] [place], [address] Nitrite Ql (U) Negative Normal Negative [facility] Comment on above: Order Comment: CLEAN CATCH Performed By: #### L 400.2010, L801.1541, L505.5000 ####[facility] [address] [place], [address] OCCULT BLOOD-UR Negative Normal Negative [facility] Comment on above: Order Comment: CLEAN CATCH Performed By: #### L 400.2010, L801.1541, L505.5000 ####[facility] [address] [place], [address] pH UR 6.0 Normal 5.0 - 8.0 [facility] Comment on above: Order Comment: CLEAN CATCH Performed By: #### L 400.2010, L801.1541, L505.5000 ####[facility] [address] [place], [address] PROT DIPSTX Negative Normal Negative [facility] Comment on above: Order Comment: CLEAN CATCH Performed By: #### L 400.2010, L801.1541, L505.5000 ####[facility] [address] [place], [address] SP.GR. DIPSTX 1.020 Normal 1.002-1.030 [facility] Comment on above: Order Comment: CLEAN CATCH Performed By: #### L 400.2010, L801.1541, L505.5000 ####[facility] [address] [place], [address] UROBILI Normal Normal Normal [facility] Comment on above: Order Comment: CLEAN CATCH Performed By: #### L 400.2010, L801.1541, L505.5000 ####[facility] [address] [place], [address] Urine Drug Screen (VISTA)on 07-13-2024 AMPHETAMINES Negative Normal <1000 ng/mL [facility] Comment on above: Order Comment: MEDTO X Performed By: #### L 400.2010, L801.1541, L505.5000 ####[facility] [address] [place], [address] BARBITIURATES Negative Normal < 200 ng/mL [facility] Comment on above: Order Comment: MEDTO X Performed By: #### L 400.2010, L801.1541, L505.5000 ####[facility] [address] [place], [address] BENZODIAZIPINE Negative Normal < 200 ng/mL [facility] Comment on above: Order Comment: MEDTO X Performed By: #### L 400.2010, L801.1541, L505.5000 ####[facility] [address] [place], [address] COCAINE Negative Normal < 300 ng/mL [facility] Comment on above: Order Comment: MEDTO X Performed By: #### L 400.2010, L801.1541, L505.5000 ####[facility] [address] [place], [address] ECSTACY Negative Normal < 500 ng/mL [facility] Comment on above: Order Comment: MEDTO X Performed By: #### L 400.2010, L801.1541, L505.5000 ####[facility] [address] [place], [address] METHADONE Negative Normal < 300 ng/mL [facility] Comment on above: Order Comment: MEDTO X Performed By: #### L 400.2010, L801.1541, L505.5000 ####[facility] [address] [place], [address] OPIATES Positive Abnormal < 300 ng/mL [facility] Comment on above: Order Comment: MEDTO X Performed By: #### L 400.2010, L801.1541, L505.5000 ####[facility] [address] [place], [address] PCP Negative Normal < 25 ng/mL [facility] Comment on above: Order Comment: MEDTO X Performed By: #### L 400.2010, L801.1541, L505.5000 ####[facility] [address] [place], [address] THC Negative Normal < 50 ng/mL [facility] Comment on above: Order Comment: MEDTO X Performed By: #### L 400.2010, L801.1541, L505.5000 ####[facility] [address] [place], [address] VISTA UDS PH 5 Normal [facility] Comment on above: Order Comment: MEDTO X Performed By: #### L 400.2010, L801.1541, L505.5000 ####[facility] [address] [place], [address] Endocrinology Visit Reporton 06-06-2024 Endocrinology Visit Report Normal [facility] CBC W/Diff, Automatedon 10-0 Absolute Lymph 1.84 X10 3/uL Normal 0.83-4.51 [facility] Comment on above: Performed By: #### L 503.6550, L501.9520, L506.1000, L503.0105, L503.6150, L100.0100, L506.0400, L500.4050 ####[facility] [address] [place], [address] Absolute Neut 4.0 X10 3/uL Normal 2.0-7.7 [facility] Comment on above: Performed By: #### L 503.6550, L501.9520, L506.1000, L503.0105, L503.6150, L100.0100, L506.0400, L500.4050 ####[facility] [address] [place], [address] Basophils/100 WBC (Bld) 0.6 % Normal 0-1 [facility] Comment on above: Performed By: #### L 503.6550, L501.9520, L506.1000, L503.0105, L503.6150, L100.0100, L506.0400, L500.4050 ####[facility] [address] [place], [address] Eosinophils/100 WBC (Bld) 2.7 % Normal 0-5 [facility] Comment on above: Performed By: #### L 503.6550, L501.9520, L506.1000, L503.0105, L503.6150, L100.0100, L506.0400, L500.4050 ####[facility] [address] [place], [address] Erythrocyte distribution width (RBC) [Ratio] 13.7 % Normal 11.6-14.6 [facility] Comment on above: Performed By: #### L 503.6550, L501.9520, L506.1000, L503.0105, L503.6150, L100.0100, L506.0400, L500.4050 ####[facility] [address] [place], [address] Hematocrit (Bld) [Volume fraction] 42.9 % Normal 37-47 [facility] Comment on above: Performed By: #### L 503.6550, L501.9520, L506.1000, L503.0105, L503.6150, L100.0100, L506.0400, L500.4050 ####[facility] [address] [place], [address] Hemoglobin (Bld) [Mass/Vol] 13.4 g/dL Normal 12.0-15.0 [facility] Comment on above: Performed By: #### L 503.6550, L501.9520, L506.1000, L503.0105, L503.6150, L100.0100, L506.0400, L500.4050 ####[facility] [address] [place], [address] IG% 0.500 Normal 0.0-0.9 [facility] Comment on above: Result Comment: IG% - Immature Granulocytes (promyelocytes, myelocytes andmetamyelocytes) > 1% indicates that a LEFT SHIFT is Present. Performed By: #### L 503.6550, L501.9520, L506.1000, L503.0105, L503.6150, L100.0100, L506.0400, L500.4050 ####[facility] [address] [place], [address] Lymphocytes/100 WBC (Bld) 27.8 % Normal 19-41 [facility] Comment on above: Performed By: #### L 503.6550, L501.9520, L506.1000, L503.0105, L503.6150, L100.0100, L506.0400, L500.4050 ####[facility] [address] [place], [address] MCH (RBC) [Entitic mass] 28.7 pg Normal 27.0-32.0 [facility] Comment on above: Performed By: #### L 503.6550, L501.9520, L506.1000, L503.0105, L503.6150, L100.0100, L506.0400, L500.4050 ####[facility] [address] [place], [address] MCHC (RBC) [Mass/Vol] 31.2 g/dL Low 32-36 [facility] Comment on above: Performed By: #### L 503.6550, L501.9520, L506.1000, L503.0105, L503.6150, L100.0100, L506.0400, L500.4050 ####[facility] [address] [place], [address] MCV (RBC) [Entitic vol] 91.9 fL Normal 81-99 [facility] Comment on above: Performed By: #### L 503.6550, L501.9520, L506.1000, L503.0105, L503.6150, L100.0100, L506.0400, L500.4050 ####[facility] [address] [place], [address] Monocytes/100 WBC (Bld) 7.7 % Normal 0-10 [facility] Comment on above: Performed By: #### L 503.6550, L501.9520, L506.1000, L503.0105, L503.6150, L100.0100, L506.0400, L500.4050 ####[facility] [address] [place], [address] Neutrophils/100 WBC (Bld) 60.7 % Normal 47-70 [facility] Comment on above: Performed By: #### L 503.6550, L501.9520, L506.1000, L503.0105, L503.6150, L100.0100, L506.0400, L500.4050 ####[facility] [address] [place], [address] Nucleated RBC (Bld) [#/Vol] 0 10*3/uL Normal 0-5 [facility] Comment on above: Performed By: #### L 503.6550, L501.9520, L506.1000, L503.0105, L503.6150, L100.0100, L506.0400, L500.4050 ####[facility] [address] [place], [address] Platelet mean volume (Bld) [Entitic vol] 9.6 fL Normal 6.2-12.0 [facility] Comment on above: Performed By: #### L 503.6550, L501.9520, L506.1000, L503.0105, L503.6150, L100.0100, L506.0400, L500.4050 ####[facility] [address] [place], [address] Platelets (Bld) [#/Vol] 228 10*3/uL Normal 150-450 [facility] Comment on above: Performed By: #### L 503.6550, L501.9520, L506.1000, L503.0105, L503.6150, L100.0100, L506.0400, L500.4050 ####[facility] [address] [place], [address] RBC (Bld) [#/Vol] 4.67 10*6/uL Normal 4.2-5.4 [facility] Comment on above: Performed By: #### L 503.6550, L501.9520, L506.1000, L503.0105, L503.6150, L100.0100, L506.0400, L500.4050 ####[facility] [address] [place], [address] RDW SD 46.1 fl High 35.1-43.9 [facility] Comment on above: Performed By: #### L 503.6550, L501.9520, L506.1000, L503.0105, L503.6150, L100.0100, L506.0400, L500.4050 ####[facility] [address] [place], [address] WBC (Bld) [#/Vol] 6.6 10*3/uL Normal 4.4-11.0 [facility] Comment on above: Performed By: #### L 503.6550, L501.9520, L506.1000, L503.0105, L503.6150, L100.0100, L506.0400, L500.4050 ####[facility] [address] [place], [address] Comprehensive Metabolic Prof ilon 06-01-2024 Albumin [Mass/Vol] 3.3 g/dL Normal 3.2-5.0 [facility] Comment on above: Performed By: #### L 503.6550, L501.9520, L506.1000, L503.0105, L503.6150, L100.0100, L506.0400, L500.4050 ####[facility] [address] [place], [address] Albumin/Globulin [Mass ratio] 0.8 {ratio} Low 0.9-2.4 [facility] Comment on above: Performed By: #### L 503.6550, L501.9520, L506.1000, L503.0105, L503.6150, L100.0100, L506.0400, L500.4050 ####[facility] [address] [place], [address] ALK P 102 U/L Normal 45-117 [facility] Comment on above: Performed By: #### L 503.6550, L501.9520, L506.1000, L503.0105, L503.6150, L100.0100, L506.0400, L500.4050 ####[facility] [address] [place], [address] ALT [Catalytic activity/Vol] 66 U/L High 13-56 [facility] Comment on above: Performed By: #### L 503.6550, L501.9520, L506.1000, L503.0105, L503.6150, L100.0100, L506.0400, L500.4050 ####[facility] [address] [place], [address] AST [Catalytic activity/Vol] 63 U/L High 15-37 [facility] Comment on above: Performed By: #### L 503.6550, L501.9520, L506.1000, L503.0105, L503.6150, L100.0100, L506.0400, L500.4050 ####[facility] [address] [place], [address] Bilirubin [Mass/Vol] 0.30 mg/dL Normal 0.20-1.00 [facility] Comment on above: Result Comment: For patients on eltrombopag therapy, use of Dimension [place] TBIL is not recommended. Performed By: #### L 503.6550, L501.9520, L506.1000, L503.0105, L503.6150, L100.0100, L506.0400, L500.4050 ####[facility] [address] [place], [address] BUN/CRE 18.1 RATIO Normal 10-20 [facility] Comment on above: Performed By: #### L 503.6550, L501.9520, L506.1000, L503.0105, L503.6150, L100.0100, L506.0400, L500.4050 ####[facility] [address] [place], [address] CA,Total 9.4 mg/dL Normal 8.5-10.1 [facility] Comment on above: Performed By: #### L 503.6550, L501.9520, L506.1000, L503.0105, L503.6150, L100.0100, L506.0400, L500.4050 ####[facility] [address] [place], [address] Chloride [Moles/Vol] 102 mmol/L Normal 98-107 [facility] Comment on above: Performed By: #### L 503.6550, L501.9520, L506.1000, L503.0105, L503.6150, L100.0100, L506.0400, L500.4050 ####[facility] [address] [place], [address] CO2 [Moles/Vol] 29.0 mmol/L Normal 21.0-32.0 [facility] Comment on above: Performed By: #### L 503.6550, L501.9520, L506.1000, L503.0105, L503.6150, L100.0100, L506.0400, L500.4050 ####[facility] [address] [place], [address] Creatinine [Mass/Vol] 0.88 mg/dL Normal 0.55-1.02 [facility] Comment on above: Result Comment: The validity of the calculated GFR GFRAA in patients over70 years has not been determined. Clinical correlation isessential. Performed By: #### L 503.6550, L501.9520, L506.1000, L503.0105, L503.6150, L100.0100, L506.0400, L500.4050 ####[facility] [address] [place], [address] EST GFR - AA 82 mL/min Normal >60 [facility] Comment on above: Result Comment: Afri can [place] GFR Calc Performed By: #### L 503.6550, L501.9520, L506.1000, L503.0105, L503.6150, L100.0100, L506.0400, L500.4050 ####[facility] [address] [place], [address] GAP 7 Normal 5-15 [facility] Comment on above: Performed By: #### L 503.6550, L501.9520, L506.1000, L503.0105, L503.6150, L100.0100, L506.0400, L500.4050 ####[facility] [address] [place], [address] GFR/1.73 sq M.predicted among non-blacks MDRD (S/P/Bld) [Vol rate/Area] 68 mL/min/{1.73_m2} Normal >60 [facility] Comment on above: Result Comment: Non- GFR Calc Performed By: #### L 503.6550, L501.9520, L506.1000, L503.0105, L503.6150, L100.0100, L506.0400, L500.4050 ####[facility] [address] [place], [address] Globulin (S) [Mass/Vol] 4.0 g/dL Normal 2.2-4.2 [facility] Comment on above: Performed By: #### L 503.6550, L501.9520, L506.1000, L503.0105, L503.6150, L100.0100, L506.0400, L500.4050 ####[facility] [address] [place], [address] Glucose [Mass/Vol] 195 mg/dL High 74-106 [facility] Comment on above: Result Comment: Fast ing Glucose result greater than or equal to 126 mg/dLsuggests DIABETES MELLITUS per A.D.A. criteria. Performed By: #### L 503.6550, L501.9520, L506.1000, L503.0105, L503.6150, L100.0100, L506.0400, L500.4050 ####[facility] [address] [place], [address] Potassium [Moles/Vol] 3.8 mmol/L Normal 3.5-5.1 [facility] Comment on above: Performed By: #### L 503.6550, L501.9520, L506.1000, L503.0105, L503.6150, L100.0100, L506.0400, L500.4050 ####[facility] [address] [place], [address] Sodium [Moles/Vol] 138 mmol/L Normal 136-145 [facility] Comment on above: Performed By: #### L 503.6550, L501.9520, L506.1000, L503.0105, L503.6150, L100.0100, L506.0400, L500.4050 ####[facility] [address] [place], [place], [phone] T PROT 7.3 g/dL Normal 6.4-8.2 [facility] Comment on above: Performed By: #### L 503.6550, L501.9520, L506.1000, L503.0105, L503.6150, L100.0100, L506.0400, L500.4050 ####[facility] [address] [place], [place], [phone]) Urea nitrogen [Mass/Vol] 16 mg/dL Normal 7-18 [facility] Comment on above: Performed By: #### L 503.6550, L501.9520, L506.1000, L503.0105, L503.6150, L100.0100, L506.0400, L500.4050 ####[facility] [address] [place], [place], [phone] Ferritinon 06-01-2024 Ferritin [Mass/Vol] 31 ng/mL Normal 8-252 [facility] Comment on above: Performed By: #### L 503.6550, L501.9520, L506.1000, L503.0105, L503.6150, L100.0100, L506.0400, L500.4050 ####[facility] [address] [place], [place], [id number] Ironon 06-01-2024 Iron [Mass/Vol] 78 ug/dL Normal 50-170 [facility] Comment on above: Performed By: #### L 503.6550, L501.9520, L506.1000, L503.0105, L503.6150, L100.0100, L506.0400, L500.4050 ####[facility] [address] [place], [place], [phone] T4 Free Directon 06-01-2024 T4 FREE DIRECT 1.07 ng/dL Normal 0.76-1.46 [facility] Comment on above: Performed By: #### L 503.6550, L501.9520, L506.1000, L503.0105, L503.6150, L100.0100, L506.0400, L500.4050 ####[facility] [address] [facility] [place], [address] Thyroid Stim Hormone (TSH)on 06-01-2024 TSH 2.790 uIU/mL Normal 0.358-3.740 [facility] Comment on above: Performed By: #### L 503.6550, L501.9520, L506.1000, L503.0105, L503.6150, L100.0100, L506.0400, L500.4050 ####[facility] [address] [facility] [address] [place], [place], [phone] Vitamin B12on 06-01-2024 Cobalamin (Vitamin B12) [Mass/Vol] 613 pg/mL Normal 211-911 [facility] Comment on above: Performed By: #### L 503.6550, L501.9520, L506.1000, L503.0105, L503.6150, L100.0100, L506.0400, L500.4050 ####[facility] [address] [facility] [address] [place], [place], [address] Vitamin D,25 Hydroxyon 06-01 Vitamin D 25-OH 38.7 ng/mL Normal [facility] Comment on above: Result Comment: Ashley min D 25(OH) Status Range Deficiency <20 ng/mL (50nmol/L) Insufficiency 20 - 30 ng/mL (50 - 75 nmol/L) Sufficiency 30 - 100 ng/mL (75 - 250 nmol/L) Toxicity >100 ng/mL (>250 nmol/L) Performed By: #### L 503.6550, L501.9520, L506.1000, L503.0105, L503.6150, L100.0100, L506.0400, L500.4050 ####[facility] [address] [place], [address] MR/BMS.BPon 05-07-2024 MR/BMS.BP Normal [facility] Basic Metabolic Profile (BMP )on 04-03-2024 BUN Normal 7-18 [facility] Comment on above: Result Comment: Canc elled via OM: Order cancelled - Patient discharged Performed By: #### L 500.2500, L100.0100 ####[facility] [address] [place], [address] BUN/CRE Normal 10-20 [facility] Comment on above: Result Comment: Canc elled via OM: Order cancelled - Patient discharged Performed By: #### L 500.2500, L100.0100 ####[facility] [address] [place], [address] CA,Total Normal 8.5-10.1 [facility] Comment on above: Result Comment: Canc elled via OM: Order cancelled - Patient discharged Performed By: #### L 500.2500, L100.0100 ####[facility] [address] [place], [address] CL Normal 98-107 [facility] Comment on above: Result Comment: Canc elled via OM: Order cancelled - Patient discharged Performed By: #### L 500.2500, L100.0100 ####[facility] [address] [place], [address] CO2 Normal 21.0-32.0 [facility] Comment on above: Result Comment: Canc elled via OM: Order cancelled - Patient discharged Performed By: #### L 500.2500, L100.0100 ####[facility] [address] [place], [address] CREAT,SERUM Normal 0.55-1.02 [facility] Comment on above: Result Comment: Canc elled via OM: Order cancelled - Patient discharged Performed By: #### L 500.2500, L100.0100 ####[facility] [address] [place], [address] EST GFR Normal >60 [facility] Comment on above: Result Comment: Canc elled via OM: Order cancelled - Patient discharged Performed By: #### L 500.2500, L100.0100 ####[facility] [address] [place], [address] EST GFR - AA Normal >60 [facility] Comment on above: Result Comment: Canc elled via OM: Order cancelled - Patient discharged Performed By: #### L 500.2500, L100.0100 ####[facility] [address] [place], [address] GAP Normal 5-15 [facility] Comment on above: Result Comment: Canc elled via OM: Order cancelled - Patient discharged Performed By: #### L 500.2500, L100.0100 ####[facility] [address] [place], [address] GLU Normal 74-106 [facility] Comment on above: Result Comment: Canc elled via OM: Order cancelled - Patient discharged Performed By: #### L 500.2500, L100.0100 ####[facility] [address] [place], [address] Potassium Normal 3.5-5.1 [facility] Comment on above: Result Comment: Canc elled via OM: Order cancelled - Patient discharged Performed By: #### L 500.2500, L100.0100 ####[facility] [address] [place], [address] Basic Metabolic Profile (BMP) Normal 136-145 [facility] Comment on above: Result Comment: Canc elled via OM: Order cancelled - Patient discharged Performed By: #### L 500.2500, L100.0100 ####[facility] [address] [place], [address] CBC W/Diff, Automatedon 08-0 -2023 Absolute Neut Normal 2.0-7.7 [facility] Comment on above: Result Comment: Canc elled via OM: Order cancelled - Patient discharged Performed By: #### L 500.2500, L100.0100 ####[facility] [address] [place], [address] HCT Normal 37-47 [facility] Comment on above: Result Comment: Canc elled via OM: Order cancelled - Patient discharged Performed By: #### L 500.2500, L100.0100 ####[facility] [address] [place], [address] HGB Normal 12.0-15.0 [facility] Comment on above: Result Comment: Canc elled via OM: Order cancelled - Patient discharged Performed By: #### L 500.2500, L100.0100 ####[facility] [address] [place], [address] MCH Normal 27.0-32.0 [facility] Comment on above: Result Comment: Canc elled via OM: Order cancelled - Patient discharged Performed By: #### L 500.2500, L100.0100 ####[facility] [address] [place], [address] MCHC Normal 32-36 [facility] Comment on above: Result Comment: Canc elled via OM: Order cancelled - Patient discharged Performed By: #### L 500.2500, L100.0100 ####[facility] [address] [place], [address] MCV Normal 81-99 [facility] Comment on above: Result Comment: Canc elled via OM: Order cancelled - Patient discharged Performed By: #### L 500.2500, L100.0100 ####[facility] [address] [place], [address] NEUT% Normal 47-70 [facility] Comment on above: Result Comment: Canc elled via OM: Order cancelled - Patient discharged Performed By: #### L 500.2500, L100.0100 ####[facility] [address] [place], [address] PLT Normal 150-450 [facility] Comment on above: Result Comment: Canc elled via OM: Order cancelled - Patient discharged Performed By: #### L 500.2500, L100.0100 ####[facility] [address] [place], [address] RBC Normal 4.2-5.4 [facility] Comment on above: Result Comment: Canc elled via OM: Order cancelled - Patient discharged Performed By: #### L 500.2500, L100.0100 ####[facility] [address] [place], [address] RDW CV Normal 11.6-14.6 [facility] Comment on above: Result Comment: Canc elled via OM: Order cancelled - Patient discharged Performed By: #### L 500.2500, L100.0100 ####[facility] [address] [place], [address] RDW SD Normal 35.1-43.9 [facility] Comment on above: Result Comment: Canc elled via OM: Order cancelled - Patient discharged Performed By: #### L 500.2500, L100.0100 ####[facility] [address] [place], [address] WBC Normal 4.4-11.0 [facility] Comment on above: Result Comment: Canc elled via OM: Order cancelled - Patient discharged Performed By: #### L 500.2500, L100.0100 ####[facility] [address] [place], [address] Endocrinology Visit Reporton 04-02-2024 Endocrinology Visit Report Normal [facility] Basic Metabolic Profile (BMP )on 03-27-2024 BUN Normal 7-18 [facility] Comment on above: Result Comment: Canc elled via OM: Order cancelled - Patient discharged Performed By: #### L 500.2500, L100.0100 ####[facility] [address] [place], [address] BUN/CRE Normal 10-20 [facility] Comment on above: Result Comment: Canc elled via OM: Order cancelled - Patient discharged Performed By: #### L 500.2500, L100.0100 ####[facility] [address] [place], [address] CA,Total Normal 8.5-10.1 [facility] Comment on above: Result Comment: Canc elled via OM: Order cancelled - Patient discharged Performed By: #### L 500.2500, L100.0100 ####[facility] [address] [place], [address] CL Normal 98-107 [facility] Comment on above: Result Comment: Canc elled via OM: Order cancelled - Patient discharged Performed By: #### L 500.2500, L100.0100 ####[facility] [address] [place], [address] CO2 Normal 21.0-32.0 [facility] Comment on above: Result Comment: Canc elled via OM: Order cancelled - Patient discharged Performed By: #### L 500.2500, L100.0100 ####[facility] [address] [place], [address] CREAT,SERUM Normal 0.55-1.02 [facility] Comment on above: Result Comment: Canc elled via OM: Order cancelled - Patient discharged Performed By: #### L 500.2500, L100.0100 ####[facility] [address] [place], [address] EST GFR Normal >60 [facility] Comment on above: Result Comment: Canc elled via OM: Order cancelled - Patient discharged Performed By: #### L 500.2500, L100.0100 ####[facility] [address] [place], [address] EST GFR - AA Normal >60 [facility] Comment on above: Result Comment: Canc elled via OM: Order cancelled - Patient discharged Performed By: #### L 500.2500, L100.0100 ####[facility] [address] [place], [address] GAP Normal 5-15 [facility] Comment on above: Result Comment: Canc elled via OM: Order cancelled - Patient discharged Performed By: #### L 500.2500, L100.0100 ####[facility] [address] [place], [address] GLU Normal 74-106 [facility] Comment on above: Result Comment: Canc elled via OM: Order cancelled - Patient discharged Performed By: #### L 500.2500, L100.0100 ####[facility] [address] [place], [address] Potassium Normal 3.5-5.1 [facility] Comment on above: Result Comment: Canc elled via OM: Order cancelled - Patient discharged Performed By: #### L 500.2500, L100.0100 ####[facility] [address] [place], [address] Basic Metabolic Profile (BMP) Normal 136-145 [facility] Comment on above: Result Comment: Canc elled via OM: Order cancelled - Patient discharged Performed By: #### L 500.2500, L100.0100 ####[facility] [address] [place], [address] CBC W/Diff, Automatedon 07-3 0-2024 Absolute Neut Normal 2.0-7.7 [facility] Comment on above: Result Comment: Canc elled via OM: Order cancelled - Patient discharged Performed By: #### L 500.2500, L100.0100 ####[facility] [address] [place], [address] HCT Normal 37-47 [facility] Comment on above: Result Comment: Canc elled via OM: Order cancelled - Patient discharged Performed By: #### L 500.2500, L100.0100 ####[facility] [address] [place], [address] HGB Normal 12.0-15.0 [facility] Comment on above: Result Comment: Canc elled via OM: Order cancelled - Patient discharged Performed By: #### L 500.2500, L100.0100 ####[facility] [address] [place], [address] MCH Normal 27.0-32.0 [facility] Comment on above: Result Comment: Canc elled via OM: Order cancelled - Patient discharged Performed By: #### L 500.2500, L100.0100 ####[facility] [address] [place], [address] MCHC Normal 32-36 [facility] Comment on above: Result Comment: Canc elled via OM: Order cancelled - Patient discharged Performed By: #### L 500.2500, L100.0100 ####[facility] [address] [place], [address] MCV Normal 81-99 [facility] Comment on above: Result Comment: Canc elled via OM: Order cancelled - Patient discharged Performed By: #### L 500.2500, L100.0100 ####[facility] [address] [place], [address] NEUT% Normal 47-70 [facility] Comment on above: Result Comment: Canc elled via OM: Order cancelled - Patient discharged Performed By: #### L 500.2500, L100.0100 ####[facility] [address] [place], [address] PLT Normal 150-450 [facility] Comment on above: Result Comment: Canc elled via OM: Order cancelled - Patient discharged Performed By: #### L 500.2500, L100.0100 ####[facility] [address] [place], [address] RBC Normal 4.2-5.4 [facility] Comment on above: Result Comment: Canc elled via OM: Order cancelled - Patient discharged Performed By: #### L 500.2500, L100.0100 ####[facility] [address] [place], [address] RDW CV Normal 11.6-14.6 [facility] Comment on above: Result Comment: Canc elled via OM: Order cancelled - Patient discharged Performed By: #### L 500.2500, L100.0100 ####[facility] [address] [place], [address] RDW SD Normal 35.1-43.9 [facility] Comment on above: Result Comment: Canc elled via OM: Order cancelled - Patient discharged Performed By: #### L 500.2500, L100.0100 ####[facility] [address] [place], [address] WBC Normal 4.4-11.0 [facility] Comment on above: Result Comment: Canc elled via OM: Order cancelled - Patient discharged Performed By: #### L 500.2500, L100.0100 ####[facility] [address] [place], [address] Basic Metabolic Profile (BMP )on 03-20-2024 BUN Normal 7-18 [facility] Comment on above: Result Comment: Canc elled via OM: Order cancelled - Patient discharged Performed By: #### L 500.2500, L100.0100 ####[facility] [address] [place], [address] BUN/CRE Normal 10-20 [facility] Comment on above: Result Comment: Canc elled via OM: Order cancelled - Patient discharged Performed By: #### L 500.2500, L100.0100 ####[facility] [address] [place], [address] CA,Total Normal 8.5-10.1 [facility] Comment on above: Result Comment: Canc elled via OM: Order cancelled - Patient discharged Performed By: #### L 500.2500, L100.0100 ####[facility] [address] [place], [address] CL Normal 98-107 [facility] Comment on above: Result Comment: Canc elled via OM: Order cancelled - Patient discharged Performed By: #### L 500.2500, L100.0100 ####[facility] [address] [place], [address] CO2 Normal 21.0-32.0 [facility] Comment on above: Result Comment: Canc elled via OM: Order cancelled - Patient discharged Performed By: #### L 500.2500, L100.0100 ####[facility] [address] [place], [address] CREAT,SERUM Normal 0.55-1.02 [facility] Comment on above: Result Comment: Canc elled via OM: Order cancelled - Patient discharged Performed By: #### L 500.2500, L100.0100 ####[facility] [address] [place], [address] EST GFR Normal >60 [facility] Comment on above: Result Comment: Canc elled via OM: Order cancelled - Patient discharged Performed By: #### L 500.2500, L100.0100 ####[facility] [address] [place], [address] EST GFR - AA Normal >60 [facility] Comment on above: Result Comment: Canc elled via OM: Order cancelled - Patient discharged Performed By: #### L 500.2500, L100.0100 ####[facility] [address] [place], [address] GAP Normal 5-15 [facility] Comment on above: Result Comment: Canc elled via OM: Order cancelled - Patient discharged Performed By: #### L 500.2500, L100.0100 ####[facility] [address] [place], [address] GLU Normal 74-106 [facility] Comment on above: Result Comment: Canc elled via OM: Order cancelled - Patient discharged Performed By: #### L 500.2500, L100.0100 ####[facility] [address] [place], [address] Potassium Normal 3.5-5.1 [facility] Comment on above: Result Comment: Canc elled via OM: Order cancelled - Patient discharged Performed By: #### L 500.2500, L100.0100 ####[facility] [address] [place], [address] Basic Metabolic Profile (BMP) Normal 136-145 [facility] Comment on above: Result Comment: Canc elled via OM: Order cancelled - Patient discharged Performed By: #### L 500.2500, L100.0100 ####[facility] [address] [place], [address] CBC W/Diff, Automatedon 07-2 Absolute Neut Normal 2.0-7.7 [facility] Comment on above: Result Comment: Canc elled via OM: Order cancelled - Patient discharged Performed By: #### L 500.2500, L100.0100 ####[facility] [address] [place], [address] HCT Normal 37-47 [facility] Comment on above: Result Comment: Canc elled via OM: Order cancelled - Patient discharged Performed By: #### L 500.2500, L100.0100 ####[facility] [address] [place], [address] HGB Normal 12.0-15.0 [facility] Comment on above: Result Comment: Canc elled via OM: Order cancelled - Patient discharged Performed By: #### L 500.2500, L100.0100 ####[facility] [address] [place], [address] MCH Normal 27.0-32.0 [facility] Comment on above: Result Comment: Canc elled via OM: Order cancelled - Patient discharged Performed By: #### L 500.2500, L100.0100 ####[facility] [address] [place], [address] MCHC Normal 32-36 [facility] Comment on above: Result Comment: Canc elled via OM: Order cancelled - Patient discharged Performed By: #### L 500.2500, L100.0100 ####[facility] [address] [place], [address] MCV Normal 81-99 [facility] Comment on above: Result Comment: Canc elled via OM: Order cancelled - Patient discharged Performed By: #### L 500.2500, L100.0100 ####[facility] [address] [place], [address] NEUT% Normal 47-70 [facility] Comment on above: Result Comment: Canc elled via OM: Order cancelled - Patient discharged Performed By: #### L 500.2500, L100.0100 ####[facility] [address] [place], [address] PLT Normal 150-450 [facility] Comment on above: Result Comment: Canc elled via OM: Order cancelled - Patient discharged Performed By: #### L 500.2500, L100.0100 ####[facility] [address] [place], [address] RBC Normal 4.2-5.4 [facility] Comment on above: Result Comment: Canc elled via OM: Order cancelled - Patient discharged Performed By: #### L 500.2500, L100.0100 ####[facility] [address] [place], [address] RDW CV Normal 11.6-14.6 [facility] Comment on above: Result Comment: Canc elled via OM: Order cancelled - Patient discharged Performed By: #### L 500.2500, L100.0100 ####[facility] [address] [place], [address] RDW SD Normal 35.1-43.9 [facility] Comment on above: Result Comment: Canc elled via OM: Order cancelled - Patient discharged Performed By: #### L 500.2500, L100.0100 ####[facility] [address] [place], [address] WBC Normal 4.4-11.0 [facility] Comment on above: Result Comment: Canc elled via OM: Order cancelled - Patient discharged Performed By: #### L 500.2500, L100.0100 ####[facility] [address] [place], [address] Basic Metabolic Profile (BMP )on 03-13-2024 BUN Normal 7-18 [facility] Comment on above: Result Comment: Canc elled via OM: Order cancelled - Patient discharged Performed By: #### L 100.0100, L500.2500 ####[facility] [address] [place], [address] BUN/CRE Normal 10-20 [facility] Comment on above: Result Comment: Canc elled via OM: Order cancelled - Patient discharged Performed By: #### L 100.0100, L500.2500 ####[facility] [address] [place], [address] CA,Total Normal 8.5-10.1 [facility] Comment on above: Result Comment: Canc elled via OM: Order cancelled - Patient discharged Performed By: #### L 100.0100, L500.2500 ####[facility] [address] [place], [address] CL Normal 98-107 [facility] Comment on above: Result Comment: Canc elled via OM: Order cancelled - Patient discharged Performed By: #### L 100.0100, L500.2500 ####[facility] [address] [place], [address] CO2 Normal 21.0-32.0 [facility] Comment on above: Result Comment: Canc elled via OM: Order cancelled - Patient discharged Performed By: #### L 100.0100, L500.2500 ####[facility] [address] [place], [address] CREAT,SERUM Normal 0.55-1.02 [facility] Comment on above: Result Comment: Canc elled via OM: Order cancelled - Patient discharged Performed By: #### L 100.0100, L500.2500 ####[facility] [address] [place], [address] EST GFR Normal >60 [facility] Comment on above: Result Comment: Canc elled via OM: Order cancelled - Patient discharged Performed By: #### L 100.0100, L500.2500 ####[facility] [address] [place], [address] EST GFR - AA Normal >60 [facility] Comment on above: Result Comment: Canc elled via OM: Order cancelled - Patient discharged Performed By: #### L 100.0100, L500.2500 ####[facility] [address] [place], [address] GAP Normal 5-15 [facility] Comment on above: Result Comment: Canc elled via OM: Order cancelled - Patient discharged Performed By: #### L 100.0100, L500.2500 ####[facility] [address] [place], [address] GLU Normal 74-106 [facility] Comment on above: Result Comment: Canc elled via OM: Order cancelled - Patient discharged Performed By: #### L 100.0100, L500.2500 ####[facility] [address] [place], [address] Potassium Normal 3.5-5.1 [facility] Comment on above: Result Comment: Canc elled via OM: Order cancelled - Patient discharged Performed By: #### L 100.0100, L500.2500 ####[facility] [address] [place], [address] Basic Metabolic Profile (BMP) Normal 136-145 [facility] Comment on above: Result Comment: Canc elled via OM: Order cancelled - Patient discharged Performed By: #### L 100.0100, L500.2500 ####[facility] [address] [place], [address] CBC W/Diff, Automatedon 07-1 Absolute Neut Normal 2.0-7.7 [facility] Comment on above: Result Comment: Canc elled via OM: Order cancelled - Patient discharged Performed By: #### L 100.0100, L500.2500 ####[facility] [address] [place], [address] HCT Normal 37-47 [facility] Comment on above: Result Comment: Canc elled via OM: Order cancelled - Patient discharged Performed By: #### L 100.0100, L500.2500 ####[facility] [address] [place], [address] HGB Normal 12.0-15.0 [facility] Comment on above: Result Comment: Canc elled via OM: Order cancelled - Patient discharged Performed By: #### L 100.0100, L500.2500 ####[facility] [address] [place], [address] MCH Normal 27.0-32.0 [facility] Comment on above: Result Comment: Canc elled via OM: Order cancelled - Patient discharged Performed By: #### L 100.0100, L500.2500 ####[facility] [address] [place], [address] MCHC Normal 32-36 [facility] Comment on above: Result Comment: Canc elled via OM: Order cancelled - Patient discharged Performed By: #### L 100.0100, L500.2500 ####[facility] [address] [place], [address] MCV Normal 81-99 [facility] Comment on above: Result Comment: Canc elled via OM: Order cancelled - Patient discharged Performed By: #### L 100.0100, L500.2500 ####[facility] [address] [place], [address] NEUT% Normal 47-70 [facility] Comment on above: Result Comment: Canc elled via OM: Order cancelled - Patient discharged Performed By: #### L 100.0100, L500.2500 ####[facility] [address] [place], [address] PLT Normal 150-450 [facility] Comment on above: Result Comment: Canc elled via OM: Order cancelled - Patient discharged Performed By: #### L 100.0100, L500.2500 ####[facility] [address] [place], [address] RBC Normal 4.2-5.4 [facility] Comment on above: Result Comment: Canc elled via OM: Order cancelled - Patient discharged Performed By: #### L 100.0100, L500.2500 ####[facility] [address] [place], [address] RDW CV Normal 11.6-14.6 [facility] Comment on above: Result Comment: Canc elled via OM: Order cancelled - Patient discharged Performed By: #### L 100.0100, L500.2500 ####[facility] [address] [place], [address] RDW SD Normal 35.1-43.9 [facility] Comment on above: Result Comment: Canc elled via OM: Order cancelled - Patient discharged Performed By: #### L 100.0100, L500.2500 ####[facility] [address] [place], [address] WBC Normal 4.4-11.0 [facility] Comment on above: Result Comment: Canc elled via OM: Order cancelled - Patient discharged Performed By: #### L 100.0100, L500.2500 ####[facility] [address] [place], [address] Basic Metabolic Profile (BMP )on 03-06-2024 BUN Normal 7-18 [facility] Comment on above: Result Comment: Canc elled via OM: Order cancelled - Patient discharged Performed By: #### L 100.0100, L500.2500 ####[facility] [address] [place], [address] BUN/CRE Normal 10-20 [facility] Comment on above: Result Comment: Canc elled via OM: Order cancelled - Patient discharged Performed By: #### L 100.0100, L500.2500 ####[facility] [address] [place], [address] CA,Total Normal 8.5-10.1 [facility] Comment on above: Result Comment: Canc elled via OM: Order cancelled - Patient discharged Performed By: #### L 100.0100, L500.2500 ####[facility] [address] [place], [address] CL Normal 98-107 [facility] Comment on above: Result Comment: Canc elled via OM: Order cancelled - Patient discharged Performed By: #### L 100.0100, L500.2500 ####[facility] [address] [place], [address] CO2 Normal 21.0-32.0 [facility] Comment on above: Result Comment: Canc elled via OM: Order cancelled - Patient discharged Performed By: #### L 100.0100, L500.2500 ####[facility] [address] [place], [address] CREAT,SERUM Normal 0.55-1.02 [facility] Comment on above: Result Comment: Canc elled via OM: Order cancelled - Patient discharged Performed By: #### L 100.0100, L500.2500 ####[facility] [address] [place], [address] EST GFR Normal >60 [facility] Comment on above: Result Comment: Canc elled via OM: Order cancelled - Patient discharged Performed By: #### L 100.0100, L500.2500 ####[facility] [address] [place], [address] EST GFR - AA Normal >60 [facility] Comment on above: Result Comment: Canc elled via OM: Order cancelled - Patient discharged Performed By: #### L 100.0100, L500.2500 ####[facility] [address] [place], [address] GAP Normal 5-15 [facility] Comment on above: Result Comment: Canc elled via OM: Order cancelled - Patient discharged Performed By: #### L 100.0100, L500.2500 ####[facility] [address] [place], [address] GLU Normal 74-106 [facility] Comment on above: Result Comment: Canc elled via OM: Order cancelled - Patient discharged Performed By: #### L 100.0100, L500.2500 ####[facility] [address] [place], [address] Potassium Normal 3.5-5.1 [facility] Comment on above: Result Comment: Canc elled via OM: Order cancelled - Patient discharged Performed By: #### L 100.0100, L500.2500 ####[facility] [address] [place], [address] Basic Metabolic Profile (BMP) Normal 136-145 [facility] Comment on above: Result Comment: Canc elled via OM: Order cancelled - Patient discharged Performed By: #### L 100.0100, L500.2500 ####[facility] [address] [place], [address] CBC W/Diff, Automatedon 07-0 9-2023 Absolute Neut Normal 2.0-7.7 [facility] Comment on above: Result Comment: Canc elled via OM: Order cancelled - Patient discharged Performed By: #### L 100.0100, L500.2500 ####[facility] [address] [place], [address] HCT Normal 37-47 [facility] Comment on above: Result Comment: Canc elled via OM: Order cancelled - Patient discharged Performed By: #### L 100.0100, L500.2500 ####[facility] [address] [place], [address] HGB Normal 12.0-15.0 [facility] Comment on above: Result Comment: Canc elled via OM: Order cancelled - Patient discharged Performed By: #### L 100.0100, L500.2500 ####[facility] [address] [place], [address] MCH Normal 27.0-32.0 [facility] Comment on above: Result Comment: Canc elled via OM: Order cancelled - Patient discharged Performed By: #### L 100.0100, L500.2500 ####[facility] [address] [place], [address] MCHC Normal 32-36 [facility] Comment on above: Result Comment: Canc elled via OM: Order cancelled - Patient discharged Performed By: #### L 100.0100, L500.2500 ####[facility] [address] [place], [address] MCV Normal 81-99 [facility] Comment on above: Result Comment: Canc elled via OM: Order cancelled - Patient discharged Performed By: #### L 100.0100, L500.2500 ####[facility] [address] [place], [address] NEUT% Normal 47-70 [facility] Comment on above: Result Comment: Canc elled via OM: Order cancelled - Patient discharged Performed By: #### L 100.0100, L500.2500 ####[facility] [address] [place], [address] PLT Normal 150-450 [facility] Comment on above: Result Comment: Canc elled via OM: Order cancelled - Patient discharged Performed By: #### L 100.0100, L500.2500 ####[facility] [address] [place], [address] RBC Normal 4.2-5.4 [facility] Comment on above: Result Comment: Canc elled via OM: Order cancelled - Patient discharged Performed By: #### L 100.0100, L500.2500 ####[facility] [address] [place], [address] RDW CV Normal 11.6-14.6 [facility] Comment on above: Result Comment: Canc elled via OM: Order cancelled - Patient discharged Performed By: #### L 100.0100, L500.2500 ####[facility] [address] [place], [address] RDW SD Normal 35.1-43.9 [facility] Comment on above: Result Comment: Canc elled via OM: Order cancelled - Patient discharged Performed By: #### L 100.0100, L500.2500 ####[facility] [address] [place], [address] WBC Normal 4.4-11.0 [facility] Comment on above: Result Comment: Canc elled via OM: Order cancelled - Patient discharged Performed By: #### L 100.0100, L500.2500 ####[facility] [address] [place], [address] Bedside Glucoseon 03-04-2024 FINGERSTICK GLU 138 mg/dL High 74-106 [facility] Comment on above: Result Comment: MARCELLA GEMENT OF PATIENT CARE PER NURSING PROTOCOL Performed By: #### L 501.080 ####[facility] [address] [place], [address] FINGERSTICK GLU 135 mg/dL High 74-106 [facility] Comment on above: Result Comment: MARCELLA GEMENT OF PATIENT CARE PER NURSING PROTOCOL Performed By: #### L 501.080 ####[facility] [address] [place], [address] Bedside Glucoseon 03-03-2024 FINGERSTICK GLU 224 mg/dL High 74-106 [facility] Comment on above: Result Comment: MARCELLA GEMENT OF PATIENT CARE PER NURSING PROTOCOL Performed By: #### L 501.080 ####[facility] [address] [facility] [address] FINGERSTICK GLU 136 mg/dL High 74-106 [facility] Comment on above: Result Comment: MARCELLA GEMENT OF PATIENT CARE PER NURSING PROTOCOL Performed By: #### L 501.080 ####[facility] [address] [facility] [address] FINGERSTICK GLU 133 mg/dL High 74-106 [facility] Comment on above: Result Comment: MARCELLA GEMENT OF PATIENT CARE PER NURSING PROTOCOL Performed By: #### L 501.080 ####[facility] [address] [facility] [address] FINGERSTICK GLU 147 mg/dL High 74-106 [facility] Comment on above: Result Comment: MARCELLA GEMENT OF PATIENT CARE PER NURSING PROTOCOL Performed By: #### L 501.080 ####[facility] [address] [facility] [address] Discharge Instructionon 07-0 Discharge Instruction Normal [facility] Bedside Glucoseon 03-02-2023 FINGERSTICK GLU 165 mg/dL High 74-106 [facility] Comment on above: Result Comment: MARCELLA GEMENT OF PATIENT CARE PER NURSING PROTOCOL Performed By: #### L 501.080 ####[facility] [address] [facility] [address] FINGERSTICK GLU 133 mg/dL High 74-106 [facility] Comment on above: Result Comment: MARCELLA GEMENT OF PATIENT CARE PER NURSING PROTOCOL Performed By: #### L 501.080 ####[facility] [address] [facility] [address] FINGERSTICK GLU 130 mg/dL High 74-106 [facility] Comment on above: Result Comment: MARCELLA GEMENT OF PATIENT CARE PER NURSING PROTOCOL Performed By: #### L 501.080 ####[facility] [address] [place], [address] FINGERSTICK GLU 186 mg/dL High -106 [facility] Comment on above: Result Comment: MARCELLA GEMENT OF PATIENT CARE PER NURSING PROTOCOL Performed By: #### L 501.080 ####[facility] [address] [place], [address] Bedside Glucoseon 03-01-2024 FINGERSTICK GLU 242 mg/dL High [address] [place] [address] Comment on above: Result Comment: MARCELLA GEMENT OF PATIENT CARE PER NURSING PROTOCOL Performed By: #### L 501.080 ####[facility] [address] [place], [address] FINGERSTICK GLU 127 mg/dL [address] Comment on above: Result Comment: MARCELLA GEMENT OF PATIENT CARE PER NURSING PROTOCOL Performed By: #### L 501.080 ####[facility] [address] [place], [address] FINGERSTICK GLU 137 mg/dL [address] Comment on above: Result Comment: MARCELLA GEMENT OF PATIENT CARE PER NURSING PROTOCOL Performed By: #### L 501.080 ####[facility] [address] [place], [address] FINGERSTICK GLU 201 mg/dL [address] Comment on above: Result Comment: MARCELLA GEMENT OF PATIENT CARE PER NURSING PROTOCOL Performed By: #### L 501.080 ####[facility] [address] [place], [address] Bedside Glucoseon 4 FINGERSTICK GLU 160 mg/dL [address] Comment on above: Result Comment: MARCELLA GEMENT OF PATIENT CARE PER NURSING PROTOCOL Performed By: #### L 501.080 ####[facility] [address] [place], [address] FINGERSTICK GLU 257 mg/dL High [facility] Comment on above: Result Comment: MARCELLA GEMENT OF PATIENT CARE PER NURSING PROTOCOL Performed By: #### L 501.080 ####[facility] [address] [place], [address] FINGERSTICK GLU 119 mg/dL High 74-106 [facility] Comment on above: Result Comment: MARCELLA GEMENT OF PATIENT CARE PER NURSING PROTOCOL Performed By: #### L 501.080 ####[facility] [address] [place], [address] FINGERSTICK GLU 213 mg/dL High 74-106 [facility] Comment on above: Result Comment: MARCELLA GEMENT OF PATIENT CARE PER NURSING PROTOCOL Performed By: #### L 501.080 ####[facility] [address] [place], [address] Basic Metabolic Profile (BMP )on 02-28-2024 BUN/CRE 20.1 RATIO High 10-20 [facility] Comment on above: Performed By: #### L 100.0100, L500.2500 ####[facility] [address] [place], [address] CA,Total 9.2 mg/dL Normal 8.5-10.1 [facility] Comment on above: Performed By: #### L 100.0100, L500.2500 ####[facility] [address] [place], [address] Chloride [Moles/Vol] 104 mmol/L Normal 98-107 [facility] Comment on above: Performed By: #### L 100.0100, L500.2500 ####[facility] [address] [place], [address] CO2 [Moles/Vol] 28.0 mmol/L Normal 21.0-32.0 [facility] Comment on above: Performed By: #### L 100.0100, L500.2500 ####[facility] [address] [place], [address] Creatinine [Mass/Vol] 0.80 mg/dL Normal 0.55-1.02 [facility] Comment on above: Result Comment: The validity of the calculated GFR GFRAA in patients over70 years has not been determined. Clinical correlation isessential. Performed By: #### L 100.0100, L500.2500 ####[facility] [address] [place], [address] ECRCL 88.07 ml/min Normal [facility] Comment on above: Performed By: #### L 100.0100, L500.2500 ####[facility] [address] [place], [address] EST GFR - AA 93 mL/min Normal >60 [facility] Comment on above: Result Comment: Afri can Greenlandic GFR Calc Performed By: #### L 100.0100, L500.2500 ####[facility] [address] [place], [address] GAP 7 Normal 5-15 [facility] Comment on above: Performed By: #### L 100.0100, L500.2500 ####[facility] [address] [place], [address] GFR/1.73 sq M.predicted among non-blacks MDRD (S/P/Bld) [Vol rate/Area] 77 mL/min/{1.73_m2} Normal >60 [facility] Comment on above: Result Comment: Non- GFR Calc Performed By: #### L 100.0100, L500.2500 ####[facility] [address] [place], [address] Glucose [Mass/Vol] 301 mg/dL High 74-106 [facility] Comment on above: Result Comment: Gluc ose result greater than or equal to 200 mg/dLsuggests DIABETES MELLITUS per A.D.A. criteria. Performed By: #### L 100.0100, L500.2500 ####[facility] [address] [place], [address] Potassium [Moles/Vol] 4.2 mmol/L Normal 3.5-5.1 [facility] Comment on above: Performed By: #### L 100.0100, L500.2500 ####[facility] [address] [place], [address] Sodium [Moles/Vol] 139 mmol/L Normal 136-145 [facility] Comment on above: Performed By: #### L 100.0100, L500.2500 ####[facility] [address] [place], [address] Urea nitrogen [Mass/Vol] 16 mg/dL Normal 7-18 [facility] Comment on above: Performed By: #### L 100.0100, L500.2500 ####[facility] [address] [place], [address] Bedside Glucoseon 02-28-2024 FINGERSTICK GLU 236 mg/dL High 74-106 [facility] Comment on above: Result Comment: MARCELLA GEMENT OF PATIENT CARE PER NURSING PROTOCOL Performed By: #### L 501.080 ####[facility] [address] [place], [address] FINGERSTICK GLU 250 mg/dL High -106 [facility] Comment on above: Result Comment: MARCELLA GEMENT OF PATIENT CARE PER NURSING PROTOCOL Performed By: #### L 501.080 ####[facility] [address] [place], [address] FINGERSTICK GLU 235 mg/dL High 74-106 [facility] Comment on above: Result Comment: MARCELLA GEMENT OF PATIENT CARE PER NURSING PROTOCOL Performed By: #### L 501.080 ####[facility] [address] [place], [address] FINGERSTICK GLU 262 mg/dL High 74-106 [facility] Comment on above: Result Comment: MARCELLA AGUILAR OF PATIENT CARE PER NURSING PROTOCOL Performed By: #### L 501.080 ####[facility] [address] [place], [address] CBC W/Diff, Automatedon 07-0 2-4 Absolute Lymph 1.85 X10 3/uL Normal 0.83-4.51 [facility] Comment on above: Performed By: #### L 100.0100, L500.2500 ####[facility] [address] [place], [address] Absolute Neut 5.3 X10 3/uL Normal 2.0-7.7 [facility] Comment on above: Performed By: #### L 100.0100, L500.2500 ####[facility] [address] [place], [address] Basophils/100 WBC (Bld) 0.5 % Normal 0-1 [facility] Comment on above: Performed By: #### L 100.0100, L500.2500 ####[facility] [address] [place], [address] Eosinophils/100 WBC (Bld) 0.1 % Normal 0-5 [facility] Comment on above: Performed By: #### L 100.0100, L500.2500 ####[facility] [address] [place], [address] Erythrocyte distribution width (RBC) [Ratio] 12.4 % Normal 11.6-14.6 [facility] Comment on above: Performed By: #### L 100.0100, L500.2500 ####[facility] [address] [place], [address] Hematocrit (Bld) [Volume fraction] 40.4 % Normal 37-47 [facility] Comment on above: Performed By: #### L 100.0100, L500.2500 ####[facility] [address] [place], [address] Hemoglobin (Bld) [Mass/Vol] 12.9 g/dL Normal 12.0-15.0 [facility] Comment on above: Performed By: #### L 100.0100, L500.2500 ####[facility] [address] [place], [address] IG% 0.700 Normal 0.0-0.9 [facility] Comment on above: Result Comment: IG% - Immature Granulocytes (promyelocytes, myelocytes andmetamyelocytes) > 1% indicates that a LEFT SHIFT is Present. Performed By: #### L 100.0100, L500.2500 ####[facility] [address] [place], [address] Lymphocytes/100 WBC (Bld) 24.4 % Normal 19-41 [facility] Comment on above: Performed By: #### L 100.0100, L500.2500 ####[facility] [address] [place], [address] MCH (RBC) [Entitic mass] 28.5 pg Normal 27.0-32.0 [facility] Comment on above: Performed By: #### L 100.0100, L500.2500 ####[facility] [address] [place], [address] MCHC (RBC) [Mass/Vol] 31.9 g/dL Low 32-36 [facility] Comment on above: Performed By: #### L 100.0100, L500.2500 ####[facility] [address] [place], [address] MCV (RBC) [Entitic vol] 89.2 fL Normal 81-99 [facility] Comment on above: Performed By: #### L 100.0100, L500.2500 ####[facility] [address] [place], [address] Monocytes/100 WBC (Bld) 4.2 % Normal 0-10 [facility] Comment on above: Performed By: #### L 100.0100, L500.2500 ####[facility] [address] [place], [address] Neutrophils/100 WBC (Bld) 70.1 % High 47-70 [facility] Comment on above: Performed By: #### L 100.0100, L500.2500 ####[facility] [address] [place], [address] Nucleated RBC (Bld) [#/Vol] 0 10*3/uL Normal 0-5 [facility] Comment on above: Performed By: #### L 100.0100, L500.2500 ####[facility] [address] [place], [address] Platelet mean volume (Bld) [Entitic vol] 9.8 fL Normal 6.2-12.0 [facility] Comment on above: Performed By: #### L 100.0100, L500.2500 ####[facility] [address] [place], [address] Platelets (Bld) [#/Vol] 228 10*3/uL Normal 150-450 [facility] Comment on above: Performed By: #### L 100.0100, L500.2500 ####[facility] [address] [place], [address] RBC (Bld) [#/Vol] 4.53 10*6/uL Normal 4.2-5.4 [facility] Comment on above: Performed By: #### L 100.0100, L500.2500 ####[facility] [address] [place], [address] RDW SD 40.6 fl Normal 35.1-43.9 [facility] Comment on above: Performed By: #### L 100.0100, L500.2500 ####[facility] [address] [place], [address] WBC (Bld) [#/Vol] 7.6 10*3/uL Normal 4.4-11.0 [facility] Comment on above: Performed By: #### L 100.0100, L500.2500 ####[facility] [address] [place], [address] Bedside Glucoseon 02-27-2024 FINGERSTICK GLU 337 mg/dL High [address] [place] [address] Comment on above: Result Comment: MARCELLA GEMENT OF PATIENT CARE PER NURSING PROTOCOL Performed By: #### L 501.080 ####[facility] [address] [place], [address] FINGERSTICK GLU 306 mg/dL High [address] [place] [address] Comment on above: Result Comment: MARCELLA GEMENT OF PATIENT CARE PER NURSING PROTOCOL Performed By: #### L 501.080 ####[facility] [address] [place], [address] FINGERSTICK GLU 328 mg/dL High [address] [place] [address] Comment on above: Result Comment: MARCELLA GEMENT OF PATIENT CARE PER NURSING PROTOCOL Performed By: #### L 501.080 ####[facility] [address] [place], [address] FINGERSTICK GLU 359 mg/dL High [address] [place] [address] Comment on above: Result Comment: MARCELLA GEMENT OF PATIENT CARE PER NURSING PROTOCOL Performed By: #### L 501.080 ####[facility] [address] [place], [address] Bedside Glucoseon 02-26-2024 FINGERSTICK GLU 142 mg/dL High [address] [place] [address] Comment on above: Result Comment: MARCELLA GEMENT OF PATIENT CARE PER NURSING PROTOCOL Performed By: #### L 501.080 ####[facility] [address] [place], [address] FINGERSTICK GLU 142 mg/dL High 74-106 [facility] Comment on above: Result Comment: MARCELLA GEMENT OF PATIENT CARE PER NURSING PROTOCOL Performed By: #### L 501.080 ####[facility] [address] [place], [address] FINGERSTICK GLU 248 mg/dL High 74-106 [facility] Comment on above: Result Comment: MARCELLA GEMENT OF PATIENT CARE PER NURSING PROTOCOL Performed By: #### L 501.080 ####[facility] [address] [place], [address] FINGERSTICK GLU 176 mg/dL High [address] [place] [address] Comment on above: Result Comment: MARCELLA GEMENT OF PATIENT CARE PER NURSING PROTOCOL Performed By: #### L 501.080 ####[facility] [address] [place], [address] Bedside Glucoseon 02-25-2024 FINGERSTICK GLU 190 mg/dL High -[address] [place] [address] Comment on above: Result Comment: MARCELLA GEMENT OF PATIENT CARE PER NURSING PROTOCOL Performed By: #### L 501.080 ####[facility] [address] [place], [address] FINGERSTICK GLU 143 mg/dL High -[address] [place] [address] Comment on above: Result Comment: MARCELLA GEMENT OF PATIENT CARE PER NURSING PROTOCOL Performed By: #### L 501.080 ####[facility] [address] [place], [address] FINGERSTICK GLU 235 mg/dL High [facility]106 [facility] Comment on above: Result Comment: MARCELLA GEMENT OF PATIENT CARE PER NURSING PROTOCOL Performed By: #### L 501.080 ####[facility] [address] [place], [address] FINGERSTICK GLU 197 mg/dL High 74-[address] [place] [address] Comment on above: Result Comment: MARCELLA GEMENT OF PATIENT CARE PER NURSING PROTOCOL Performed By: #### L 501.080 ####[facility] [address] [place], [address] Bedside Glucoseon 02-24-2024 FINGERSTICK GLU 220 mg/dL High [address] [place] [address] Comment on above: Result Comment: MARCELLA GEMENT OF PATIENT CARE PER NURSING PROTOCOL Performed By: #### L 501.080 ####[facility] [address] [place], [address] FINGERSTICK GLU 132 mg/dL High [address] [place] [address] Comment on above: Result Comment: MARCELLA GEMENT OF PATIENT CARE PER NURSING PROTOCOL Performed By: #### L 501.080 ####[facility] [address] [place], [address] FINGERSTICK GLU 129 mg/dL High [address] [place] [address] Comment on above: Result Comment: MARCELLA GEMENT OF PATIENT CARE PER NURSING PROTOCOL Performed By: #### L 501.080 ####[facility] [address] [place], [address] FINGERSTICK GLU 212 mg/dL High [address] [place] [address] Comment on above: Result Comment: MARCELLA GEMENT OF PATIENT CARE PER NURSING PROTOCOL Performed By: #### L 501.080 ####[facility] [address] [place], [address] COVID 19 AG RAPID (SAM Rincon)on 02-24-2024 SARS-CoV-2 (COVID-19) RNA ROJELIO+probe Ql (Unsp spec) Normal [facility] Comment on above: Performed By: #### M 100.505 ####[facility] [address] [place], [address] Bedside Glucoseon 02-23-2024 FINGERSTICK GLU 214 mg/dL High [address] [place] [address] Comment on above: Result Comment: MARCELLA GEMENT OF PATIENT CARE PER NURSING PROTOCOL Performed By: #### L 501.080 ####[facility] [address] [place], [address] FINGERSTICK GLU 247 mg/dL High [facility]106 [facility] Comment on above: Result Comment: MARCELLA GEMENT OF PATIENT CARE PER NURSING PROTOCOL Performed By: #### L 501.080 ####[facility] [address] [place], [address] FINGERSTICK GLU 194 mg/dL High -106 [facility] Comment on above: Result Comment: MARCELLA GEMENT OF PATIENT CARE PER NURSING PROTOCOL Performed By: #### L 501.080 ####[facility] [address] [place], [address] FINGERSTICK GLU 226 mg/dL High [address] [place] [address] Comment on above: Result Comment: MARCELLA GEMENT OF PATIENT CARE PER NURSING PROTOCOL Performed By: #### L 501.080 ####[facility] [address] [place], [address] Bedside Glucoseon 02-22-2024 FINGERSTICK GLU 180 mg/dL High [address] [place] [address] Comment on above: Result Comment: MARCELLA GEMENT OF PATIENT CARE PER NURSING PROTOCOL Performed By: #### L 501.080 ####[facility] [address] [place], [address] FINGERSTICK GLU 203 mg/dL High [address] [place] [address] Comment on above: Result Comment: MARCELLA GEMENT OF PATIENT CARE PER NURSING PROTOCOL Performed By: #### L 501.080 ####[facility] [address] [place], [address] FINGERSTICK GLU 338 mg/dL High [address] [place] [address] Comment on above: Result Comment: MARCELLA GEMENT OF PATIENT CARE PER NURSING PROTOCOL Performed By: #### L 501.080 ####[facility] [address] [place], [address] FINGERSTICK GLU 218 mg/dL High 74-106 [facility] Comment on above: Result Comment: MARCELLA AGUILAR OF PATIENT CARE PER NURSING PROTOCOL Performed By: #### L 501.080 ####[facility] [address] [place], [address] Lipid Profileon 02-22-2024 Cholesterol [Mass/Vol] 161 mg/dL Normal 200 [facility] Comment on above: Result Comment: <200 mg/dL Desirable 200-240 mg/dL Borderline >240 mg/dL High Risk Performed By: #### L 501.9520, L500.4100 ####[facility] [address] [place], [address] Cholesterol in HDL [Mass/Vol] 31 mg/dL Low [facility] Comment on above: Result Comment: The drugs N-Acetylcysteine and Metamizole may falselydepress this assay. Reference Range HDL <40 mg/dL Low HDL Cholesterol HDL >or= 60 mg/dL High HDL Cholesterol Performed By: #### L 501.9520, L500.4100 ####[facility] [address] [place], [address] Cholesterol in LDL [Mass/Vol] 80 mg/dL Normal 0-130 [facility] Comment on above: Performed By: #### L 501.9520, L500.4100 ####[facility] [address] [place], [address] Cholesterol in VLDL [Mass/Vol] 50 mg/dL High 5-40 [facility] Comment on above: Performed By: #### L 501.9520, L500.4100 ####[facility] [address] [place], [address] Triglyceride [Mass/Vol] 251 mg/dL High [facility] Comment on above: Result Comment: The drugs N-Acetylcysteine and Metamizole may falselydepress this assay.Serum Triglycerides Reference Interval Normal <150 mg/dL Borderline high 150 - 199 mg/dL High 200 - 499 mg/dL Very High > or = 500 mg/dL Performed By: #### L 501.9520, L500.4100 ####[facility] [address] [place], [address] Thyroid Stim Hormone (TSH)on 02-22-2024 TSH 2.64 uIU/mL Normal 0.358-3.74 [facility] Comment on above: Performed By: #### L 501.9520, L500.4100 ####[facility] [address] [place], [address] Basic Metabolic Profile (BMP )on 02-21-2024 BUN/CRE 17.3 RATIO Normal 10-20 [facility] Comment on above: Performed By: #### L 100.0100, L500.2500 ####[facility] [address] [place], [address] CA,Total 8.9 mg/dL Normal 8.5-10.1 [facility] Comment on above: Performed By: #### L 100.0100, L500.2500 ####[facility] [address] [place], [address] Chloride [Moles/Vol] 101 mmol/L Normal 98-107 [facility] Comment on above: Performed By: #### L 100.0100, L500.2500 ####[facility] [address] [place], [address] CO2 [Moles/Vol] 33.0 mmol/L High 21.0-32.0 [facility] Comment on above: Performed By: #### L 100.0100, L500.2500 ####[facility] [address] [place], [address] Creatinine [Mass/Vol] 0.75 mg/dL Normal 0.55-1.02 [facility] Comment on above: Result Comment: The validity of the calculated GFR GFRAA in patients over70 years has not been determined. Clinical correlation isessential. Performed By: #### L 100.0100, L500.2500 ####[facility] [address] [place], [address] EST GFR - AA 99 mL/min Normal >60 [facility] Comment on above: Performed By: #### L 100.0100, L500.2500 ####[facility] [address] [place], [address] GAP 5 Normal 5-15 [facility] Comment on above: Performed By: #### L 100.0100, L500.2500 ####[facility] [address] [place], [address] GFR/1.73 sq M.predicted among non-blacks MDRD (S/P/Bld) [Vol rate/Area] 82 mL/min/{1.73_m2} Normal >60 [facility] Comment on above: Performed By: #### L 100.0100, L500.2500 ####[facility] [address] [place], [address] Glucose [Mass/Vol] 237 mg/dL High 74-106 [facility] Comment on above: Result Comment: Gluc ose result greater than or equal to 200 mg/dLsuggests DIABETES MELLITUS per A.D.A. criteria. Performed By: #### L 100.0100, L500.2500 ####[facility] [address] [place], [address] Potassium [Moles/Vol] 4.2 mmol/L Normal 3.5-5.1 [facility] Comment on above: Performed By: #### L 100.0100, L500.2500 ####[facility] [address] [place], [address] Sodium [Moles/Vol] 139 mmol/L Normal 136-145 [facility] Comment on above: Performed By: #### L 100.0100, L500.2500 ####[facility] [address] [place], [address] Urea nitrogen [Mass/Vol] 13 mg/dL Normal 7-18 [facility] Comment on above: Performed By: #### L 100.0100, L500.2500 ####[facility] [address] [place], [address] Bedside Glucoseon 02-21-2024 FINGERSTICK GLU 326 mg/dL High 74-106 [facility] Comment on above: Result Comment: MARCELLA GEMENT OF PATIENT CARE PER NURSING PROTOCOL Performed By: #### L 501.080 ####[facility] [address] [place], [address] FINGERSTICK GLU 232 mg/dL High 74-106 [facility] Comment on above: Result Comment: MARCELLA GEMENT OF PATIENT CARE PER NURSING PROTOCOL Performed By: #### L 501.080 ####[facility] [address] [place], [address] FINGERSTICK GLU 236 mg/dL High 74-106 [facility] Comment on above: Result Comment: MARCELLA GEMENT OF PATIENT CARE PER NURSING PROTOCOL Performed By: #### L 501.080 ####[facility] [address] [place], [address] FINGERSTICK GLU 232 mg/dL High 74-106 [facility] Comment on above: Result Comment: MARCELLA GEMENT OF PATIENT CARE PER NURSING PROTOCOL Performed By: #### L 501.080 ####[facility] [address] [place], [address] CBC W/Diff, Automatedon 06-2 Absolute Lymph 1.86 X10 3/uL Normal 0.83-4.51 [facility] Comment on above: Performed By: #### L 100.0100, L500.2500 ####[facility] [address] [place], [address] Absolute Neut 2.5 X10 3/uL Normal 2.0-7.7 [facility] Comment on above: Performed By: #### L 100.0100, L500.2500 ####[facility] [address] [place], [address] Basophils/100 WBC (Bld) 0.8 % Normal 0-1 [facility] Comment on above: Performed By: #### L 100.0100, L500.2500 ####[facility] [address] [place], [address] Eosinophils/100 WBC (Bld) 4.0 % Normal 0-5 [facility] Comment on above: Performed By: #### L 100.0100, L500.2500 ####[facility] [address] [place], [address] IG% 0.200 Normal 0.0-0.9 [facility] Comment on above: Result Comment: IG% - Immature Granulocytes (promyelocytes, myelocytes andmetamyelocytes) > 1% indicates that a LEFT SHIFT is Present. Performed By: #### L 100.0100, L500.2500 ####[facility] [address] [place], [address] Lymphocytes/100 WBC (Bld) 35.8 % Normal 19-41 [facility] Comment on above: Performed By: #### L 100.0100, L500.2500 ####[facility] [address] [place], [address] Monocytes/100 WBC (Bld) 10.6 % High 0-10 [facility] Comment on above: Performed By: #### L 100.0100, L500.2500 ####[facility] [address] [place], [address] Neutrophils/100 WBC (Bld) 48.6 % Normal 47-70 [facility] Comment on above: Performed By: #### L 100.0100, L500.2500 ####[facility] [address] [place], [address] Erythrocyte distribution width (RBC) [Ratio] 12.6 % Normal 11.6-14.6 [facility] Comment on above: Performed By: #### L 100.0100, L500.2500 ####[facility] [address] [place], [address] Hematocrit (Bld) [Volume fraction] 39.3 % Normal 37-47 [facility] Comment on above: Performed By: #### L 100.0100, L500.2500 ####[facility] [address] [place], [address] MCH (RBC) [Entitic mass] 29.3 pg Normal 27.0-32.0 [facility] Comment on above: Performed By: #### L 100.0100, L500.2500 ####[facility] [address] [place], [address] MCHC (RBC) [Mass/Vol] 32.3 g/dL Normal 32-36 [facility] Comment on above: Performed By: #### L 100.0100, L500.2500 ####[facility] [address] [place], [address] MCV (RBC) [Entitic vol] 90.6 fL Normal 81-99 [facility] Comment on above: Performed By: #### L 100.0100, L500.2500 ####[facility] [address] [place], [address] Platelet mean volume (Bld) [Entitic vol] 9.5 fL Normal 6.2-12.0 [facility] Comment on above: Performed By: #### L 100.0100, L500.2500 ####[facility] [address] [place], [address] Platelets (Bld) [#/Vol] 200 10*3/uL Normal 150-450 [facility] Comment on above: Performed By: #### L 100.0100, L500.2500 ####[facility] [address] [place], [address] RDW SD 41.1 fl Normal 35.1-43.9 [facility] Comment on above: Performed By: #### L 100.0100, L500.2500 ####[facility] [address] [place], [address] Hemoglobin (Bld) [Mass/Vol] 12.7 g/dL Normal 12.0-15.0 [facility] Comment on above: Performed By: #### L 100.0100, L500.2500 ####[facility] [address] [place], [address] RBC (Bld) [#/Vol] 4.34 10*6/uL Normal 4.2-5.4 [facility] Comment on above: Performed By: #### L 100.0100, L500.2500 ####[facility] [address] [place], [address] WBC (Bld) [#/Vol] 5.2 10*3/uL Normal 4.4-11.0 [facility] Comment on above: Performed By: #### L 100.0100, L500.2500 ####[facility] [address] [place], [address] Bedside Glucoseon 02-20-2024 FINGERSTICK GLU 312 mg/dL High 74-106 [facility] Comment on above: Result Comment: MARCELLA AGUILAR OF PATIENT CARE PER NURSING PROTOCOL Performed By: #### L 501.080 ####[facility] [address] [place], [address] FINGERSTICK GLU 224 mg/dL High 74-106 [facility] Comment on above: Result Comment: MARCELLA GEMENT OF PATIENT CARE PER NURSING PROTOCOL Performed By: #### L 501.080 ####[facility] [address] [place], [address] FINGERSTICK GLU 180 mg/dL High 74-106 [facility] Comment on above: Result Comment: MARCELLA GEMENT OF PATIENT CARE PER NURSING PROTOCOL Performed By: #### L 501.080 ####[facility] [address] [place], [address] FINGERSTICK GLU 210 mg/dL High 74-106 [facility] Comment on above: Result Comment: MARCELLA GEMENT OF PATIENT CARE PER NURSING PROTOCOL Performed By: #### L 501.080 ####[facility] [address] [place], [address] FINGERSTICK GLU 236 mg/dL High 74-106 [facility] Comment on above: Result Comment: MARCELLA GEMENT OF PATIENT CARE PER NURSING PROTOCOL Performed By: #### L 501.080 ####[facility] [address] [place], [address] Basic Metabolic Profile (BMP )on 02-19-2024 BUN/CRE 14.5 RATIO Normal 10-20 [facility] Comment on above: Performed By: #### L 100.0100, L500.2500 ####[facility] [address] [place], [address] CA,Total 8.8 mg/dL Normal 8.5-10.1 [facility] Comment on above: Performed By: #### L 100.0100, L500.2500 ####[facility] [address] [place], [address] Chloride [Moles/Vol] 100 mmol/L Normal 98-107 [facility] Comment on above: Performed By: #### L 100.0100, L500.2500 ####[facility] [address] [place], [address] CO2 [Moles/Vol] 34.0 mmol/L High 21.0-32.0 [facility] Comment on above: Performed By: #### L 100.0100, L500.2500 ####[facility] [address] [place], [address] Creatinine [Mass/Vol] 0.69 mg/dL Normal 0.55-1.02 [facility] Comment on above: Result Comment: The validity of the calculated GFR GFRAA in patients over70 years has not been determined. Clinical correlation isessential. Performed By: #### L 100.0100, L500.2500 ####[facility] [address] [place], [address] ECRCL 88.08 ml/min Normal [facility] Comment on above: Performed By: #### L 100.0100, L500.2500 ####[facility] [address] [place], [address] EST GFR - AA 110 mL/min Normal >60 [facility] Comment on above: Result Comment: Afri can Greenlandic GFR Calc Performed By: #### L 100.0100, L500.2500 ####[facility] [address] [place], [address] GAP 3 Low 5-15 [facility] Comment on above: Performed By: #### L 100.0100, L500.2500 ####[facility] [address] [place], [address] GFR/1.73 sq M.predicted among non-blacks MDRD (S/P/Bld) [Vol rate/Area] 91 mL/min/{1.73_m2} Normal >60 [facility] Comment on above: Result Comment: Non- GFR Calc Performed By: #### L 100.0100, L500.2500 ####[facility] [address] [place], [address] Glucose [Mass/Vol] 175 mg/dL High 74-106 [facility] Comment on above: Result Comment: Fast ing Glucose result greater than or equal to 126 mg/dLsuggests DIABETES MELLITUS per A.D.A. criteria. Performed By: #### L 100.0100, L500.2500 ####[facility] [address] [place], [address] Potassium [Moles/Vol] 4.2 mmol/L Normal 3.5-5.1 [facility] Comment on above: Performed By: #### L 100.0100, L500.2500 ####[facility] [address] [place], [address] Sodium [Moles/Vol] 137 mmol/L Normal 136-145 [facility] Comment on above: Performed By: #### L 100.0100, L500.2500 ####[facility] [address] [place], [address] Urea nitrogen [Mass/Vol] 10 mg/dL Normal 7-18 [facility] Comment on above: Performed By: #### L 100.0100, L500.2500 ####[facility] [address] [place], [address] Bedside Glucoseon 02-19-2024 FINGERSTICK GLU 243 mg/dL High 74-106 [facility] Comment on above: Result Comment: MARCELLA GEMENT OF PATIENT CARE PER NURSING PROTOCOL Performed By: #### L 501.080 ####[facility] [address] [place], [address] FINGERSTICK GLU 230 mg/dL High 74-106 [facility] Comment on above: Result Comment: MARCELLA GEMENT OF PATIENT CARE PER NURSING PROTOCOL Performed By: #### L 501.080 ####[facility] [address] [place], [address] FINGERSTICK GLU 161 mg/dL High 74-106 [facility] Comment on above: Result Comment: MARCELLA GEMENT OF PATIENT CARE PER NURSING PROTOCOL Performed By: #### L 501.080 ####[facility] [address] [place], [address] FINGERSTICK GLU 246 mg/dL High 74-106 [facility] Comment on above: Result Comment: MARCELLA GEMENT OF PATIENT CARE PER NURSING PROTOCOL Performed By: #### L 501.080 ####[facility] [address] [place], [address] CBC W/Diff, Automatedon 06-10 01-2023 Absolute Lymph 2.10 X10 3/uL Normal 0.83-4.51 [facility] Comment on above: Performed By: #### L 100.0100, L500.2500 ####[facility] [address] [place], [address] Absolute Neut 3.0 X10 3/uL Normal 2.0-7.7 [facility] Comment on above: Performed By: #### L 100.0100, L500.2500 ####[facility] [address] [place], [address] Basophils/100 WBC (Bld) 0.6 % Normal 0-1 [facility] Comment on above: Performed By: #### L 100.0100, L500.2500 ####[facility] [address] [place], [address] Eosinophils/100 WBC (Bld) 3.1 % Normal 0-5 [facility] Comment on above: Performed By: #### L 100.0100, L500.2500 ####[facility] [address] [place], [address] Erythrocyte distribution width (RBC) [Ratio] 12.9 % Normal 11.6-14.6 [facility] Comment on above: Performed By: #### L 100.0100, L500.2500 ####[facility] [address] [place], [address] Hematocrit (Bld) [Volume fraction] 39.1 % Normal 37-47 [facility] Comment on above: Performed By: #### L 100.0100, L500.2500 ####[facility] [address] [place], [address] Hemoglobin (Bld) [Mass/Vol] 12.0 g/dL Normal 12.0-15.0 [facility] Comment on above: Performed By: #### L 100.0100, L500.2500 ####[facility] [address] [place], [address] IG% 0.300 Normal 0.0-0.9 [facility] Comment on above: Result Comment: IG% - Immature Granulocytes (promyelocytes, myelocytes andmetamyelocytes) > 1% indicates that a LEFT SHIFT is Present. Performed By: #### L 100.0100, L500.2500 ####[facility] [address] [place], [address] Lymphocytes/100 WBC (Bld) 34.1 % Normal 19-41 [facility] Comment on above: Performed By: #### L 100.0100, L500.2500 ####[facility] [address] [place], [address] MCH (RBC) [Entitic mass] 28.9 pg Normal 27.0-32.0 [facility] Comment on above: Performed By: #### L 100.0100, L500.2500 ####[facility] [address] [place], [address] MCHC (RBC) [Mass/Vol] 30.7 g/dL Low 32-36 [facility] Comment on above: Performed By: #### L 100.0100, L500.2500 ####[facility] [address] [place], [address] MCV (RBC) [Entitic vol] 94.2 fL Normal 81-99 [facility] Comment on above: Performed By: #### L 100.0100, L500.2500 ####[facility] [address] [place], [address] Monocytes/100 WBC (Bld) 12.5 % High 0-10 [facility] Comment on above: Performed By: #### L 100.0100, L500.2500 ####[facility] [address] [place], [address] Neutrophils/100 WBC (Bld) 49.4 % Normal 47-70 [facility] Comment on above: Performed By: #### L 100.0100, L500.2500 ####[facility] [address] [place], [address] Nucleated RBC (Bld) [#/Vol] 0 10*3/uL Normal 0-5 [facility] Comment on above: Performed By: #### L 100.0100, L500.2500 ####[facility] [address] [place], [address] Platelet mean volume (Bld) [Entitic vol] 9.7 fL Normal 6.2-12.0 [facility] Comment on above: Performed By: #### L 100.0100, L500.2500 ####[facility] [address] [place], [address] Platelets (Bld) [#/Vol] 166 10*3/uL Normal 150-450 [facility] Comment on above: Performed By: #### L 100.0100, L500.2500 ####[facility] [address] [place], [address] RBC (Bld) [#/Vol] 4.15 10*6/uL Low 4.2-5.4 [facility] Comment on above: Performed By: #### L 100.0100, L500.2500 ####[facility] [address] [place], [address] RDW SD 44.4 fl High 35.1-43.9 [facility] Comment on above: Performed By: #### L 100.0100, L500.2500 ####[facility] [address] [place], [address] WBC (Bld) [#/Vol] 6.2 10*3/uL Normal 4.4-11.0 [facility] Comment on above: Performed By: #### L 100.0100, L500.2500 ####[facility] [address] [place], [address] Basic Metabolic Profile (BMP )on 02-18-2024 BUN/CRE 11.5 RATIO Normal 10-20 [facility] Comment on above: Performed By: #### L 100.0100, L500.2500 ####[facility] [address] [place], [address] CA,Total 8.7 mg/dL Normal 8.5-10.1 [facility] Comment on above: Performed By: #### L 100.0100, L500.2500 ####[facility] [address] [place], [address] Chloride [Moles/Vol] 99 mmol/L Normal 98-107 [facility] Comment on above: Performed By: #### L 100.0100, L500.2500 ####[facility] [address] [place], [address] CO2 [Moles/Vol] 34.0 mmol/L High 21.0-32.0 [facility] Comment on above: Performed By: #### L 100.0100, L500.2500 ####[facility] [address] [place], [address] Creatinine [Mass/Vol] 0.96 mg/dL Normal 0.55-1.02 [facility] Comment on above: Result Comment: The validity of the calculated GFR GFRAA in patients over70 years has not been determined. Clinical correlation isessential. Performed By: #### L 100.0100, L500.2500 ####[facility] [address] [place], [address] ECRCL 73.40 ml/min Normal [facility] Comment on above: Performed By: #### L 100.0100, L500.2500 ####[facility] [address] [place], [address] EST GFR - AA 75 mL/min Normal >60 [facility] Comment on above: Result Comment: Afri can [place] GFR Calc Performed By: #### L 100.0100, L500.2500 ####[facility] [address] [place], [address] GAP 5 Normal 5-15 [facility] Comment on above: Performed By: #### L 100.0100, L500.2500 ####[facility] [address] [place], [address] GFR/1.73 sq M.predicted among non-blacks MDRD (S/P/Bld) [Vol rate/Area] 62 mL/min/{1.73_m2} Normal >60 [facility] Comment on above: Result Comment: Non- GFR Calc Performed By: #### L 100.0100, L500.2500 ####[facility] [address] [place], [address] Glucose [Mass/Vol] 255 mg/dL High 74-106 [facility] Comment on above: Result Comment: Gluc ose result greater than or equal to 200 mg/dLsuggests DIABETES MELLITUS per A.D.A. criteria. Performed By: #### L 100.0100, L500.2500 ####[facility] [address] [place], [address] Potassium [Moles/Vol] 4.6 mmol/L Normal 3.5-5.1 [facility] Comment on above: Performed By: #### L 100.0100, L500.2500 ####[facility] [address] [place], [address] Sodium [Moles/Vol] 138 mmol/L Normal 136-145 [facility] Comment on above: Performed By: #### L 100.0100, L500.2500 ####[facility] [address] [place], [address] Urea nitrogen [Mass/Vol] 11 mg/dL Normal 7-18 [facility] Comment on above: Performed By: #### L 100.0100, L500.2500 ####[facility] [address] [place], [address] Bedside Glucoseon - FINGERSTICK GLU 263 mg/dL High 74-106 [facility] Comment on above: Result Comment: MARCELLA GEMENT OF PATIENT CARE PER NURSING PROTOCOL Performed By: #### L 501.080 ####[facility] [address] [place], [address] FINGERSTICK GLU 231 mg/dL High 74-106 [facility] Comment on above: Result Comment: MARCELLA GEMENT OF PATIENT CARE PER NURSING PROTOCOL Performed By: #### L 501.080 ####[facility] [address] [place], [address] FINGERSTICK GLU 190 mg/dL High 74-106 [facility] Comment on above: Result Comment: MARCELLA GEMENT OF PATIENT CARE PER NURSING PROTOCOL Performed By: #### L 501.080 ####[facility] [address] [place], [address] CBC W/Diff, Automatedon 06-2 Absolute Lymph 1.34 X10 3/uL Normal 0.83-4.51 [facility] Comment on above: Performed By: #### L 100.0100, L500.2500 ####[facility] [address] [place], [address] Absolute Neut 4.6 X10 3/uL Normal 2.0-7.7 [facility] Comment on above: Performed By: #### L 100.0100, L500.2500 ####[facility] [address] [place], [address] Basophils/100 WBC (Bld) 0.3 % Normal 0-1 [facility] Comment on above: Performed By: #### L 100.0100, L500.2500 ####[facility] [address] [place], [address] Eosinophils/100 WBC (Bld) 2.0 % Normal 0-5 [facility] Comment on above: Performed By: #### L 100.0100, L500.2500 ####[facility] [address] [place], [address] Erythrocyte distribution width (RBC) [Ratio] 13.1 % Normal 11.6-14.6 [facility] Comment on above: Performed By: #### L 100.0100, L500.2500 ####[facility] [address] [place], [address] Hematocrit (Bld) [Volume fraction] 41.0 % Normal 37-47 [facility] Comment on above: Performed By: #### L 100.0100, L500.2500 ####[facility] [address] [place], [address] Hemoglobin (Bld) [Mass/Vol] 12.7 g/dL Normal 12.0-15.0 [facility] Comment on above: Performed By: #### L 100.0100, L500.2500 ####[facility] [address] [place], [address] IG% 0.100 Normal 0.0-0.9 [facility] Comment on above: Result Comment: IG% - Immature Granulocytes (promyelocytes, myelocytes andmetamyelocytes) > 1% indicates that a LEFT SHIFT is Present. Performed By: #### L 100.0100, L500.2500 ####[facility] [address] [place], [address] Lymphocytes/100 WBC (Bld) 19.5 % Normal 19-41 [facility] Comment on above: Performed By: #### L 100.0100, L500.2500 ####[facility] [address] [place], [address] MCH (RBC) [Entitic mass] 29.0 pg Normal 27.0-32.0 [facility] Comment on above: Performed By: #### L 100.0100, L500.2500 ####[facility] [address] [place], [address] MCHC (RBC) [Mass/Vol] 31.0 g/dL Low 32-36 [facility] Comment on above: Performed By: #### L 100.0100, L500.2500 ####[facility] [address] [place], [address] MCV (RBC) [Entitic vol] 93.6 fL Normal 81-99 [facility] Comment on above: Performed By: #### L 100.0100, L500.2500 ####[facility] [address] [place], [address] Monocytes/100 WBC (Bld) 11.4 % High 0-10 [facility] Comment on above: Performed By: #### L 100.0100, L500.2500 ####[facility] [address] [place], [address] Neutrophils/100 WBC (Bld) 66.7 % Normal 47-70 [facility] Comment on above: Performed By: #### L 100.0100, L500.2500 ####[facility] [address] [place], [address] Nucleated RBC (Bld) [#/Vol] 0 10*3/uL Normal 0-5 [facility] Comment on above: Performed By: #### L 100.0100, L500.2500 ####[facility] [address] [place], [address] Platelet mean volume (Bld) [Entitic vol] 9.0 fL Normal 6.2-12.0 [facility] Comment on above: Performed By: #### L 100.0100, L500.2500 ####[facility] [address] [place], [address] Platelets (Bld) [#/Vol] 166 10*3/uL Normal 150-450 [facility] Comment on above: Performed By: #### L 100.0100, L500.2500 ####[facility] [address] [place], [address] RBC (Bld) [#/Vol] 4.38 10*6/uL Normal 4.2-5.4 [facility] Comment on above: Performed By: #### L 100.0100, L500.2500 ####[facility] [address] [place], [address] RDW SD 45.0 fl High 35.1-43.9 [facility] Comment on above: Performed By: #### L 100.0100, L500.2500 ####[facility] [address] [place], [address] WBC (Bld) [#/Vol] 6.9 10*3/uL Normal 4.4-11.0 [facility] Comment on above: Performed By: #### L 100.0100, L500.2500 ####[facility] [address] [place], [address] Bedside Glucoseon 02-17-2024 FINGERSTICK GLU 210 mg/dL High 74-106 [facility] Comment on above: Result Comment: MARCELLA GEMENT OF PATIENT CARE PER NURSING PROTOCOL Performed By: #### L 501.080 ####[facility] [address] [place], [address] FINGERSTICK GLU 153 mg/dL High 74-106 [facility] Comment on above: Result Comment: MARCELLA GEMENT OF PATIENT CARE PER NURSING PROTOCOL Performed By: #### L 501.080 ####[facility] [address] [place], [address] Decalcification bone/plaqueo n 02-17-2024 Decalcification bone/plaque Normal [facility] Comment on above: Performed By: #### P DEC ####[facility] [address] [place], [address] Foot min 3 Viewson 4 Foot min 3 Views Normal [facility] MR/POSTOP.ANEon 02-17-2024 MR/POSTOP.ANE Normal [facility] MR/[id number] 02-17-2024 MR/POSTOPAN2 Normal [facility] Operative Reporton 4 Operative Report Normal [facility] Toe(s) Min 2 Viewson 024 Toe(s) Min 2 Views Normal [facility] 36on 11-03-2023 36 Name of caller: Flex Contact phone number: [phone] Relationship to Patient: patient Provider: Dr. Landis Practice: Endocrinology Chief Complaint/Reason for Call: Flex states she would like a call back to confirm receipt of her referral faxed to the office two days ago, 11/01/23, by Dr. Rica Padgett. Please contact Flex and advise. Best time of day caller can be reached: Any Patient advised that office/PCP has 24-48 business hours to return their call: No Normal [facility] COLONOSCOPYon 01-09-2024 Colonoscopy Table formatting fro m the original result was not included. Normal [facility] Colonoscopy studyon 09-06-19 24 Table formatting fro m the original result was not included. Impression Normal. Findings All observed locations appeared normal.; Recommendation Follow up with PCP Repeat screening colonoscopy in 10 years Indication Diarrhea, unspecified type Staff Staff Role No Staff Documented Medications meperidine PF (Demerol) injection 50 mg midazolam PF (Versed) injection 7.5 mg glucagon (Glucagen) injection 1 mg diphenhydrAMINE (BENADryl) injection 50 mg (Totals for administrations occurring from 1237 to 1304 on 09/06/23) Preprocedure A history and physical has been performed, and patient medication allergies have been reviewed. The patient's tolerance of previous anesthesia has been reviewed. The risks and benefits of the procedure and the sedation options and risks were discussed with the patient and patient's partner. All questions were answered and informed consent obtained. Details of the Procedure The patient underwent moderate sedation, which was administered by the procedural nurse. The patient's blood pressure, ECG, ETCO2, heart rate, level of consciousness, oxygen and respirations were monitored throughout the procedure. A digital rectal exam was performed. The scope was introduced through the anus and advanced to the cecum. Retroflexion was performed in the rectum. The quality of bowel preparation was evaluated using the [place] Bowel Preparation Scale with scores of: right colon = 3, transverse colon = 3, left colon = 3. The total BBPS score was 9. Bowel prep was adequate. The patient experienced no blood loss. The procedure was not difficult. The patient tolerated the procedure well. There were no apparent adverse events. Events Procedure Events Event Event Time ENDO SCOPE IN TIME 09/06/2023 12:48 PM ENDO CECUM REACHED 09/06/2023 12:53 PM ENDO SCOPE OUT TIME 09/06/2023 1:01 PM Specimens No specimens collected Procedure Location [address] [id number] Referring Provider Renita Mijares Do [address] [facility], [address] [place] [address] Procedure Provider Renita Mijares DO [facility] Work Phone: [facility] Work Phone: Radiology Study observation (narrative) [facility] Work Phone: .Auto Diffon 02-24-2023 Basophil, Absolute 0.0 10 3/mcL Normal 0.0-0.2 [facility] ([place]) Comment on above: Performed By: #### C ROMEO BRYANT, ANEU #### [address] [address] Basophils/100 WBC (Bld) 0.2 % Normal 0.0-2.5 [facility] ([place]) Comment on above: Performed By: #### C ROMEO BRYANT, ANEU #### [address] [address] Eosinophil, Absolute 0.4 10 3/mcL Normal 0.0-0.4 [facility] ([place]) Comment on above: Performed By: #### ROMEO FRANCIS, ANEU #### [address] [address] Eosinophils/100 WBC (Bld) 3.7 % Normal 0.0-7.0 [facility] ([place]) Comment on above: Performed By: #### C ROMEO BRYANT, ANEU #### [address] [address] Lymphocyte, Absolute 1.9 10 3/mcL Normal 0.8-3.9 [facility] ([place]) Comment on above: Performed By: #### C ROMEO BRYANT, ANEU #### [address] [address] Lymphocytes/100 WBC (Bld) 19.2 % Normal 10.0-50.0 [facility] ([place]) Comment on above: Performed By: #### C ROMEO BRYANT, ANEU #### [address] [address] Monocyte, Absolute 0.6 10 3/mcL Normal 0.2-1.0 [facility] ([place]) Comment on above: Performed By: #### C ROMEO BRYANT, ANEU #### [address] [address] Monocytes/100 WBC (Bld) 6.5 % Normal 1.7-13.0 [facility] ([place] Comment on above: Performed By: #### ROMEO FRANCIS, PATRICK #### [address] [address] Neutrophils/100 WBC (Bld) 70.4 % Normal 37.0-80.0 [facility] ([place] Comment on above: Performed By: #### ROMEO FRANCIS, ANEU #### [address] [address] .NEUABSon 02-24-2023 Neutrophil, Absolute 6.9 10 3/mcL High 2.9-6.2 [facility] ([place] Comment on above: Performed By: #### ROMEO FRANCIS, ANEU #### [place] [address] CBCon 02-24-2023 Erythrocyte distribution width (RBC) [Ratio] 14.5 % Normal 11.5-14.5 [facility] ([place] Comment on above: Performed By: #### C ROMEO BRYANT, ANEU #### [address] [address] Hematocrit (Bld) [Volume fraction] 34.4 % Low 37.0-47.0 [facility] ([place]) Comment on above: Performed By: #### ROMEO FRANCIS, ANEU #### [address] [address] Hgb 11.4 G/dL Low 12.0-16.0 [facility] ([place] Comment on above: Performed By: #### C ROMEO BRYANT, ANEU #### [address] [address] MCH (RBC) [Entitic mass] 29.9 pg Normal 27.0-31.2 [facility] ([place] Comment on above: Performed By: #### ROMEO FRANCIS, ANEU #### [place] [address] MCHC 33.3 G/dL Normal 33.0-37.0 [facility] ([place] Comment on above: Performed By: #### ROMEO FRANCIS ANEU #### [address] [address] MCV (RBC) [Entitic vol] 89.7 fL Normal 80.0-94.0 [facility] ([place]) Comment on above: Performed By: #### ROMEO FRANCIS, ANEU #### [address] [address] Platelet 180 10 3/mcL Normal 130-400 [facility] ([place]) Comment on above: Performed By: #### ROMEO FRANCIS, ANEU #### [place] [address] [address] Platelet mean volume (Bld) [Entitic vol] 7.2 fL Low 7.4-10.4 [facility] ([place]) Comment on above: Performed By: #### ROMEO FRANCIS, ANEU #### [address] [address] RBC 3.83 10 6/mcL Low 4.20-5.40 [facility] ([place]) Comment on above: Performed By: #### ROMEO FRANCIS, ANEU #### [address] [address] WBC 9.8 10 3/mcL Normal 4.6-10.8 [facility] ([place] Comment on above: Performed By: #### ROMEO FRANCIS, ANEU #### [address] [address] LABORATORYOrdered By: Soha Jiang on 02-24-2023 Blood Glucose Testing Reason Routine (02/24/23 11:46 AM) [facility] Glucose [Mass/Vol] 209 mg/dL Invalid Interpretation Code 82 - 115 mg/dL [facility] Blood Glucose Testing Reason Routine (02/24/23 7:05 AM) [facility] Glucose [Mass/Vol] 139 mg/dL Invalid Interpretation Code 82 - 115 mg/dL [facility] LABORATORYOrdered By: SYSTEM SYSTEM on 02-24-2023 Basophil, Absolute 0.0 103/mcL Invalid Interpretation Code 0.0 - 0.2 10^3/mcL AO Workflow SS Basophils/100 WBC (Bld) 0.2 % Invalid Interpretation Code 0.0 - 2.5 % AO Workflow SS Eosinophil, Absolute 0.4 103/mcL Invalid Interpretation Code 0.0 - 0.4 10^3/mcL AO Workflow SS Eosinophils/100 WBC (Bld) 3.7 % Invalid Interpretation Code 0.0 - 7.0 % AO Workflow SS Erythrocyte distribution width (RBC) [Ratio] 14.5 % Invalid Interpretation Code 11.5 - 14.5 % AO Workflow SS Hematocrit (Bld) [Volume fraction] 34.4 % Invalid Interpretation Code 37.0 - 47.0 % AO Workflow SS Hemoglobin (Bld) [Mass/Vol] 11.4 G/dL Invalid Interpretation Code 12.0 - 16.0 G/dL AO Workflow SS Lymphocyte, Absolute 1.9 103/mcL Invalid Interpretation Code 0.8 - 3.9 10^3/mcL AO Workflow SS Lymphocytes/100 WBC (Bld) 19.2 % Invalid Interpretation Code 10.0 - 50.0 % AO Workflow SS MCH (RBC) [Entitic mass] 29.9 pg Invalid Interpretation Code 27.0 - 31.2 pg AO Workflow SS MCHC 33.3 G/dL Invalid Interpretation Code 33.0 - 37.0 G/dL AO Workflow SS MCV (RBC) [Entitic vol] 89.7 fL Invalid Interpretation Code 80.0 - 94.0 fL AO Workflow SS Monocyte, Absolute 0.6 103/mcL Invalid Interpretation Code 0.2 - 1.0 10^3/mcL AO Workflow SS Monocytes/100 WBC (Bld) 6.5 % Invalid Interpretation Code 1.7 - 13.0 % AO Workflow SS Neutrophil, Absolute 6.9 103/mcL Invalid Interpretation Code 2.9 - 6.2 10^3/mcL AO Workflow SS Neutrophils/100 WBC (Bld) 70.4 % Invalid Interpretation Code 37.0 - 80.0 % AO Workflow SS Platelet mean volume (Bld) [Entitic vol] 7.2 fL Invalid Interpretation Code 7.4 - 10.4 fL AO Workflow SS Platelets (Bld) [#/Vol] 180 103/mcL Invalid Interpretation Code 130 - 400 10^3/mcL AO Workflow SS RBC (Bld) [#/Vol] 3.83 106/mcL Invalid Interpretation Code 4.20 - 5.40 10^6/mcL AO Workflow SS WBC (Bld) [#/Vol] 9.8 103/mcL Invalid Interpretation Code 4.6 - 10.8 10^3/mcL AO Workflow SS .Auto Diffon 02-23-2023 Basophil, Absolute 0.0 10 3/mcL Normal 0.0-0.2 [facility] ([place]) Comment on above: Performed By: #### B MP, GFR, CBC, ADIFF, ANEU #### [address] [address] Basophils/100 WBC (Bld) 0.1 % Normal 0.0-2.5 [facility] ([place]) Comment on above: Performed By: #### B MP, GFR, CBC, ADIFF, ANEU #### [address] [address] Eosinophil, Absolute 0.0 10 3/mcL Normal 0.0-0.4 [facility] ([place]) Comment on above: Performed By: #### B MP, GFR, CBC, ADIFF, ANEU #### [address] [address] Eosinophils/100 WBC (Bld) 0.1 % Normal 0.0-7.0 [facility] ([place]) Comment on above: Performed By: #### B MP, GFR, CBC, ADIFF, ANEU #### [address] [address] Lymphocyte, Absolute 1.4 10 3/mcL Normal 0.8-3.9 [facility] ([place]) Comment on above: Performed By: #### B MP, GFR, CBC, ADIFF, ANEU #### [address] [address] Lymphocytes/100 WBC (Bld) 12.5 % Normal 10.0-50.0 [facility] ([place]) Comment on above: Performed By: #### B MP, GFR, CBC, ADIFF, ANEU #### [address] [address] Monocyte, Absolute 0.5 10 3/mcL Normal 0.2-1.0 [facility] ([place]) Comment on above: Performed By: #### B MP, GFR, CBC, ADIFF, ANEU #### [address] [address] Monocytes/100 WBC (Bld) 5.0 % Normal 1.7-13.0 [facility] ([place]) Comment on above: Performed By: #### B MP, GFR, CBC, ADIFF, ANEU #### [address] [address] Neutrophils/100 WBC (Bld) 82.3 % High 37.0-80.0 [facility] ([place] Comment on above: Performed By: #### B MP, GFR, CBC, ADIFF, ANEU #### [address] [address] .GFRon 02-23-2023 GFR 61 ml/min/1.73sqm Normal [facility] ([place]) Comment on above: Result Comment: GFR Population mean for , Non- Americans Ages 20-29 = 116 mL/min/1.73 sq.m. Ages 30-39 = 107 mL/min/1.73 sq.m. Ages 40-49 = 99 mL/min/1.73 sq.m. Ages 50-59 = 93 mL/min/1.73 sq.m. Ages 60-69 = 85 mL/min/1.73 sq.m. Ages 70+ = 75 mL/min/1.73 sq.m. Chronic Kidney Disease: Less than 60 mL/min/1.73 square meters End Stage Renal Disease: Less than 15 mL/min/1.73 square meters Performed By: #### B MP, GFR, CBC, ADIFF, ANEU #### [address] [address] GFR Non- 51 ml/min/1.73sqm Normal [facility] ([place]) Comment on above: Result Comment: GFR Population mean for , Non- Americans Ages 20-29 = 116 mL/min/1.73 sq.m. Ages 30-39 = 107 mL/min/1.73 sq.m. Ages 40-49 = 99 mL/min/1.73 sq.m. Ages 50-59 = 93 mL/min/1.73 sq.m. Ages 60-69 = 85 mL/min/1.73 sq.m. Ages 70+ = 75 mL/min/1.73 sq.m. Chronic Kidney Disease: Less than 60 mL/min/1.73 square meters End Stage Renal Disease: Less than 15 mL/min/1.73 square meters Performed By: #### B MP, GFR, CBC, ADIFF, ANEU #### [address] [address] .NEUABSon 02-23-2023 Neutrophil, Absolute 9.0 10 3/mcL High 2.9-6.2 [facility] ([place]) Comment on above: Performed By: #### B MP, GFR, CBC, ADIFF, ANEU #### [address] [address] BMPon 02-23-2023 BUN/Creatinine Ratio 16 ratio Normal 7-27 [facility] ([place]) Comment on above: Performed By: #### B MP, GFR, CBC, ADIFF, ANEU #### [address] [address] Calcium [Mass/Vol] 8.7 mg/dL Normal 8.4-10.2 [facility] ([place]) Comment on above: Performed By: #### B MP, GFR, CBC, ADIFF, ANEU #### [address] [address] Chloride [Moles/Vol] 103 mmol/L Normal 98-107 [facility] ([place]) Comment on above: Performed By: #### B MP, GFR, CBC, ADIFF, ANEU #### [address] [address] CO2 [Moles/Vol] 30 mmol/L Normal 23-31 [facility] ([place]) Comment on above: Performed By: #### B MP, GFR, CBC, ADIFF, ANEU #### [address] [address] Creatinine [Mass/Vol] 1.09 mg/dL High 0.55-1.02 [facility] ([place]) Comment on above: Performed By: #### B MP, GFR, CBC, ADIFF, ANEU #### [address] [address] Electrolyte Balance 8.0 mEq/L Normal 4.0-15.0 [facility] ([place]) Comment on above: Performed By: #### B MP, GFR, CBC, ADIFF, ANEU #### [address] [address] Glucose [Mass/Vol] 239 mg/dL High 80-115 [facility] ([place]) Comment on above: Performed By: #### B MP, GFR, CBC, ADIFF, ANEU #### [address] [address] Potassium [Moles/Vol] 4.8 mmol/L Normal 3.5-5.1 [facility] ([place]) Comment on above: Performed By: #### B MP, GFR, CBC, ADIFF, ANEU #### [address] [address] Sodium [Moles/Vol] 141 mmol/L Normal 136-145 [facility] ([place]) Comment on above: Performed By: #### B MP, GFR, CBC, ADIFF, ANEU #### [address] [address] Urea nitrogen [Mass/Vol] 17 mg/dL Normal 7-18 [facility] ([place]) Comment on above: Performed By: #### B MP, GFR, CBC, ADIFF, ANEU #### [address] [address] CBCon 02-23-2023 Erythrocyte distribution width (RBC) [Ratio] 14.4 % Normal 11.5-14.5 [facility] ([place] Comment on above: Performed By: #### B MP, GFR, CBC, ADIFF, ANEU #### [address] [address] Hematocrit (Bld) [Volume fraction] 34.9 % Low 37.0-47.0 [facility] ([place]) Comment on above: Performed By: #### B MP, GFR, CBC, ADIFF, ANEU #### [address] [address] Hgb 11.6 G/dL Low 12.0-16.0 [facility] ([place] Comment on above: Performed By: #### B MP, GFR, CBC, ADIFF, ANEU #### [address] [address] MCH (RBC) [Entitic mass] 29.6 pg Normal 27.0-31.2 [facility] ([place]) Comment on above: Performed By: #### B MP, GFR, CBC, ADIFF, ANEU #### [address] [address] MCHC 33.1 G/dL Normal 33.0-37.0 [facility] ([place] Comment on above: Performed By: #### B MP, GFR, CBC, ADIFF, ANEU #### [address] [address] MCV (RBC) [Entitic vol] 89.4 fL Normal 80.0-94.0 [facility] ([place]) Comment on above: Performed By: #### B MP, GFR, CBC, ADIFF, ANEU #### [address] [address] Platelet 231 10 3/mcL Normal 130-400 [facility] ([place]) Comment on above: Performed By: #### B MP, GFR, CBC, ADIFF, ANEU #### [address] [address] Platelet mean volume (Bld) [Entitic vol] 7.4 fL Normal 7.4-10.4 [facility] ([place]) Comment on above: Performed By: #### B MP, GFR, CBC, ADIFF, ANEU #### [place] [address] [place], [place] [address] RBC 3.90 10 6/mcL Low 4.20-5.40 [facility] ([place]) Comment on above: Performed By: #### B MP, GFR, CBC, ADIFF, ANEU #### [facility] [address] [place], [place] [address] WBC 10.9 10 3/mcL High 4.6-10.8 [facility] ([place] Comment on above: Performed By: #### B MP, GFR, CBC, ADIFF, ANEU #### [facility] [address] [place], [place] [address] LABORATORYOrdered By: Jacob Farmer on 02-23-2023 Glucose [Mass/Vol] 171 mg/dL Invalid Interpretation Code 82 - 115 mg/dL [facility] LABORATORYOrdered By: Eduardo Ghotra on 02-23-2023 Blood Glucose Testing Reason Routine (02/23/23 9:26 PM) [facility] LABORATORYOrdered By: Freddy Salomon on 02-23-2023 Stated Blood Glucose 187 [facility] LABORATORYOrdered By: Robert Wright on 02-23-2023 Basophil, Absolute 0.0 103/mcL Invalid Interpretation Code 0.0 - 0.2 10^3/mcL AO Workflow SS Basophils/100 WBC (Bld) 0.1 % Invalid Interpretation Code 0.0 - 2.5 % AO Workflow SS Eosinophil, Absolute 0.0 103/mcL Invalid Interpretation Code 0.0 - 0.4 10^3/mcL AO Workflow SS Eosinophils/100 WBC (Bld) 0.1 % Invalid Interpretation Code 0.0 - 7.0 % AO Workflow SS Erythrocyte distribution width (RBC) [Ratio] 14.4 % Invalid Interpretation Code 11.5 - 14.5 % AO Workflow SS Hematocrit (Bld) [Volume fraction] 34.9 % Invalid Interpretation Code 37.0 - 47.0 % AO Workflow SS Hemoglobin (Bld) [Mass/Vol] 11.6 G/dL Invalid Interpretation Code 12.0 - 16.0 G/dL AO Workflow SS Lymphocyte, Absolute 1.4 103/mcL Invalid Interpretation Code 0.8 - 3.9 10^3/mcL AO Workflow SS Lymphocytes/100 WBC (Bld) 12.5 % Invalid Interpretation Code 10.0 - 50.0 % AO Workflow SS MCH (RBC) [Entitic mass] 29.6 pg Invalid Interpretation Code 27.0 - 31.2 pg AO Workflow SS MCHC 33.1 G/dL Invalid Interpretation Code 33.0 - 37.0 G/dL AO Workflow SS MCV (RBC) [Entitic vol] 89.4 fL Invalid Interpretation Code 80.0 - 94.0 fL AO Workflow SS Monocyte, Absolute 0.5 103/mcL Invalid Interpretation Code 0.2 - 1.0 10^3/mcL AO Workflow SS Monocytes/100 WBC (Bld) 5.0 % Invalid Interpretation Code 1.7 - 13.0 % AO Workflow SS Neutrophil, Absolute 9.0 103/mcL Invalid Interpretation Code 2.9 - 6.2 10^3/mcL AO Workflow SS Neutrophils/100 WBC (Bld) 82.3 % Invalid Interpretation Code 37.0 - 80.0 % AO Workflow SS Platelet mean volume (Bld) [Entitic vol] 7.4 fL Invalid Interpretation Code 7.4 - 10.4 fL AO Workflow SS Platelets (Bld) [#/Vol] 231 103/mcL Invalid Interpretation Code 130 - 400 10^3/mcL AO Workflow SS RBC (Bld) [#/Vol] 3.90 106/mcL Invalid Interpretation Code 4.20 - 5.40 10^6/mcL AO Workflow SS WBC (Bld) [#/Vol] 10.9 103/mcL Invalid Interpretation Code 4.6 - 10.8 10^3/mcL AO Workflow SS LABORATORYOrdered By: SYSTEM SYSTEM on 02-23-2023 Calcium [Mass/Vol] 8.7 mg/dL Invalid Interpretation Code 8.4 - 10.2 mg/dL AO ADM SS Chloride [Moles/Vol] 103 mmol/L Invalid Interpretation Code 98 - 107 mmol/L AO ADM SS CO2 [Moles/Vol] 30 mmol/L Invalid Interpretation Code 23 - 31 mmol/L AO ADM SS Creatinine [Mass/Vol] 1.09 mg/dL Invalid Interpretation Code 0.55 - 1.02 mg/dL AO ADM SS Electrolyte Balance 8.0 mEq/L Invalid Interpretation Code 4.0 - 15.0 mEq/L AO ADM SS GFR/1.73 sq M.predicted among blacks MDRD (S/P/Bld) [Vol rate/Area] 61 ml/min/1.73sqm Invalid Interpretation Code AO Chemistry S GFR/1.73 sq M.predicted among non-blacks MDRD (S/P/Bld) [Vol rate/Area] 51 ml/min/1.73sqm Invalid Interpretation Code AO Chemistry S Glucose [Mass/Vol] 239 mg/dL Invalid Interpretation Code 80 - 115 mg/dL AO ADM SS Potassium [Moles/Vol] 4.8 mmol/L Invalid Interpretation Code 3.5 - 5.1 mmol/L AO ADM SS Sodium [Moles/Vol] 141 mmol/L Invalid Interpretation Code 136 - 145 mmol/L AO ADM SS Urea nitrogen [Mass/Vol] 17 mg/dL Invalid Interpretation Code 7 - 18 mg/dL AO ADM SS Urea nitrogen/Creatinine [Mass ratio] 16 ratio Invalid Interpretation Code 7 - 27 ratio AO ADM SS Gel ABOon 02-22-2023 ABO/Rh Interp Negative Invalid Interpretation Code [facility] ([place]) Comment on above: Performed By: #### CASEY SPANGLER #### [address] [place] [place], [place] [address] Gel ABSon 02-22-2023 Antibody Screen Gel Negative Normal [facility] ([place]) Comment on above: Performed By: #### CASEY SPANGLER #### [facility] [address] [place], [place] [address] LABORATORYOrdered By: Kiran Harding on 02-22-2023 Stated Blood Glucose 273 [facility] LABORATORYOrdered By: Aline weiss on 02-22-2023 Stated Blood Glucose 301 [facility] Time of Stated Blood Glucose [id number] [facility] LABORATORYOrdered By: Ann Marie Joiner on 02-22-2023 ABO/Rh Interp Negative Invalid Interpretation Code AO BB SS Antibody Screen Gel Negative ABSC (02/22/23 9:53 AM) Invalid Interpretation Code AO BB SS XR KNEE 1 OR 2 VIEWS RIGHTon 02-22-2023 XR KNEE 1 OR 2 VIEWS RIGHT ORIGINAL EXAMINATION: TWO XRAY VIEWS OF THE [...] Sign Date: 02/22/2023 1:07:27 PM Ordering Provider: PJ MAHONEY [facility] ([place]) CT KNEE W/O CONTRAST RIGHTon 02-04-2023 CT KNEE W/O CONTRAST RIGHT ORIGINAL EXAMINATION: CT OF THE RIGHT KNEE WITHOUT CONTRAST 02/03/2023 3:09 pm TECHNIQUE: CT of the right knee was performed without the administration of intravenous contrast. Multiplanar reformatted images are provided for review. Automated exposure control, iterative reconstruction, and/or weight based adjustment of the mA/kV was utilized to reduce the radiation dose to as low as reasonably achievable. COMPARISON: None. HISTORY ORDERING SYSTEM PROVIDED HISTORY: Reason for Exam: Varus deformity, not elsewhere classified, right knee FINDINGS: Survey images right hip: Degenerative changes noted. No soft tissue abnormality Right knee: Chondrocalcinosis. Tricompartmental degenerative changes are most advanced in the medial tibiofemoral patellofemoral compartment. Small joint effusion visualized. No aggressive bony lesion identified. Exaggerated lateral tilt of the patella noted. Survey images of the right ankle: No aggressive bony lesion IMPRESSION: Chondrocalcinosis with moderate tricompartmental degenerative changes Joint effusion in the knee No aggressive bony lesions Interpreted by: Kenny Garcia MD Preliminary Report By: Kenny Garcia MD Electronically signed By Kenny Garcia MD Dictated Date: 02/04/2023 9:06:55 AM Prelim Date: 02/04/2023 9:09:05 AM Sign Date: 02/04/2023 9:09:05 AM Ordering Provider: PJ Bolden [facility] ([place]) .Auto Diffon 02-03-2023 Basophil, Absolute 0.0 10 3/mcL Normal 0.0-0.2 [facility] ([place]) Comment on above: Performed By: #### ROMEO FRANCIS, ANEU #### [address] [address] Basophils/100 WBC (Bld) 0.5 % Normal 0.0-2.5 [facility] ([place]) Comment on above: Performed By: #### ROMEO FRANCIS, ANEU #### [address] [address] Eosinophil, Absolute 0.1 10 3/mcL Normal 0.0-0.4 [facility] ([place]) Comment on above: Performed By: #### ROMEO FRANCIS, ANEU #### [address] [address] Eosinophils/100 WBC (Bld) 2.0 % Normal 0.0-7.0 [facility] ([place]) Comment on above: Performed By: #### ROMEO FRANCIS, ANEU #### [address] [address] Lymphocyte, Absolute 2.2 10 3/mcL Normal 0.8-3.9 [facility] ([place]) Comment on above: Performed By: #### ROMEO FRANCIS, ANEU #### [address] [address] Lymphocytes/100 WBC (Bld) 29.2 % Normal 10.0-50.0 [facility] ([place]) Comment on above: Performed By: #### ROMEO FRANCIS, ANEU #### [address] [address] Monocyte, Absolute 0.5 10 3/mcL Normal 0.2-1.0 [facility] ([place]) Comment on above: Performed By: #### ROMEO FRANCIS, ANEU #### [place] [address] [address] Monocytes/100 WBC (Bld) 6.3 % Normal 1.7-13.0 [facility] ([place]) Comment on above: Performed By: #### C ROMEO BRYANT ANEU #### [place] [address] [address] Neutrophils/100 WBC (Bld) 62.0 % Normal 37.0-80.0 [facility] ([place]) Comment on above: Performed By: #### C ROMEO BRYANT ANEU #### [place] [address] [address] .GFRon 02-03-2023 GFR 74 ml/min/1.73sqm Normal [facility] ([place]) Comment on above: Result Comment: GFR Population mean for , Non- Americans Ages 20-29 = 116 mL/min/1.73 sq.m. Ages 30-39 = 107 mL/min/1.73 sq.m. Ages 40-49 = 99 mL/min/1.73 sq.m. Ages 50-59 = 93 mL/min/1.73 sq.m. Ages 60-69 = 85 mL/min/1.73 sq.m. Ages 70+ = 75 mL/min/1.73 sq.m. Chronic Kidney Disease: Less than 60 mL/min/1.73 square meters End Stage Renal Disease: Less than 15 mL/min/1.73 square meters Performed By: #### C ROMEO BRYANT ANEU #### [place] [address] [address] GFR Non- 61 ml/min/1.73sqm Normal [facility] ([place]) Comment on above: Result Comment: GFR Population mean for , Non- Americans Ages 20-29 = 116 mL/min/1.73 sq.m. Ages 30-39 = 107 mL/min/1.73 sq.m. Ages 40-49 = 99 mL/min/1.73 sq.m. Ages 50-59 = 93 mL/min/1.73 sq.m. Ages 60-69 = 85 mL/min/1.73 sq.m. Ages 70+ = 75 mL/min/1.73 sq.m. Chronic Kidney Disease: Less than 60 mL/min/1.73 square meters End Stage Renal Disease: Less than 15 mL/min/1.73 square meters Performed By: #### ROMEO FRANCIS, ANEU #### [address] [address] .NEUABSon 02-03-2023 Neutrophil, Absolute 4.7 10 3/mcL Normal 2.9-6.2 [facility] ([place]) Comment on above: Performed By: #### ROMEO FRANCIS, ANEU #### [address] [address] A1Con 02-03-2023 HbA1c (Bld) [Mass fraction] 6.7 % High 4.3-6.4 [facility] ([place]) Comment on above: Performed By: #### ROMEO FRANCIS, ANEU #### [address] [address] ALBon 02-03-2023 Albumin Level 3.6 G/dL Normal 3.4-4.8 [facility] ([place]) Comment on above: Performed By: #### ROMEO FRANCIS, ANEU #### [address] [address] BMPon 02-03-2023 BUN/Creatinine Ratio 23 ratio Normal 7-27 [facility] ([place]) Comment on above: Performed By: #### ROMEO FRANCIS, ANEU #### [address] [address] Calcium [Mass/Vol] 8.9 mg/dL Normal 8.4-10.2 [facility] ([place]) Comment on above: Performed By: #### ROMEO FRANCIS, ANEU #### [address] [address] Chloride [Moles/Vol] 100 mmol/L Normal 98-107 [facility] ([place]) Comment on above: Performed By: #### ROMEO FRANCIS, ANEU #### [address] [address] CO2 [Moles/Vol] 30 mmol/L Normal 23-31 [facility] ([place]) Comment on above: Performed By: #### ROMEO FRANCIS ANEU #### [address] [address] Creatinine [Mass/Vol] 0.93 mg/dL Normal 0.55-1.02 [facility] ([place]) Comment on above: Performed By: #### ROMEO FRANCIS ANEU #### [place] [address] [address] Electrolyte Balance 9.0 mEq/L Normal 4.0-15.0 [facility] ([place]) Comment on above: Performed By: #### ROMEO FRANCIS ANEU #### [place] [address] [address] Glucose [Mass/Vol] 258 mg/dL High 80-115 [facility] ([place]) Comment on above: Performed By: #### ROMEO FRANCIS ANEU #### [place] [address] [address] Potassium [Moles/Vol] 4.7 mmol/L Normal 3.5-5.1 [facility] ([place]) Comment on above: Performed By: #### ROMEO FRANCIS ANEU #### [address] [address] Sodium [Moles/Vol] 139 mmol/L Normal 136-145 [facility] ([place]) Comment on above: Performed By: #### ROMEO FRANCIS ANEU #### [place] [address] [address] Urea nitrogen [Mass/Vol] 21 mg/dL High 7-18 [facility] ([place]) Comment on above: Performed By: #### ROMEO FRANCIS ANEU #### [place] [address] [address] CBCon 02-03-2023 Erythrocyte distribution width (RBC) [Ratio] 15.2 % High 11.5-14.5 [facility] ([place]) Comment on above: Order Comment: Pre-A dmission Testing Performed By: #### ROMEO FRANCIS ANEU #### [address] [address] Hematocrit (Bld) [Volume fraction] 36.6 % Low 37.0-47.0 [facility] ([place]) Comment on above: Order Comment: Pre-A dmission Testing Performed By: #### C ROMEO BRYANT, ANEU #### [address] [address] Hgb 12.0 G/dL Normal 12.0-16.0 [facility] ([place]) Comment on above: Order Comment: Pre-A dmission Testing Performed By: #### C ROMEO BRYANT, ANEU #### [address] [address] MCH (RBC) [Entitic mass] 29.5 pg Normal 27.0-31.2 [facility] ([place]) Comment on above: Order Comment: Pre-A dmission Testing Performed By: #### C ROMEO BRYANT, ANEU #### [address] [address] MCHC 32.8 G/dL Low 33.0-37.0 [facility] ([place]) Comment on above: Order Comment: Pre-A dmission Testing Performed By: #### C ROMEO BRYANT, ANEU #### [address] [address] MCV (RBC) [Entitic vol] 90.0 fL Normal 80.0-94.0 [facility] ([place]) Comment on above: Order Comment: Pre-A dmission Testing Performed By: #### C ROMEO BRYANT, ANEU #### [address] [address] Platelet 234 10 3/mcL Normal 130-400 [facility] ([place]) Comment on above: Order Comment: Pre-A dmission Testing Performed By: #### C BCROMEO, ANEU #### [address] [address] Platelet mean volume (Bld) [Entitic vol] 7.0 fL Low 7.4-10.4 [facility] ([place]) Comment on above: Order Comment: Pre-A dmission Testing Performed By: #### C BC, ADIFF, ANEU #### [address] [address] RBC 4.07 10 6/mcL Low 4.20-5.40 [facility] ([place]) Comment on above: Order Comment: Pre-A dmission Testing Performed By: #### C BC, ADIFF, ANEU #### [address] [address] WBC 7.5 10 3/mcL Normal 4.6-10.8 [facility] ([place]) Comment on above: Order Comment: Pre-A dmission Testing Performed By: #### C BC, ADIFF, ANEU #### [address] [address] Gel ABOon 02-03-2023 ABO/Rh Interp Negative Invalid Interpretation Code [facility] ([place]) Comment on above: Order Comment: SURG EDMOND 6/27 -AC Performed By: #### C BC, ADIFF, ANEU #### [address] [address] Gel ABSon 02-03-2023 Antibody Screen Gel Negative Normal [facility] ([place]) Comment on above: Order Comment: SURG EDMOND 6/27 -AC Performed By: #### C BC, ADIFF, ANEU #### [address] [address] LABORATORYOrdered By: Ann Marie Joiner on 02-03-2023 ABO/Rh Interp Negative Invalid Interpretation Code AO BB SS Antibody Screen Gel Negative ABSC (02/03/23 2:34 PM) Invalid Interpretation Code AO BB SS LABORATORYOrdered By: SYSTEM SYSTEM on 02-03-2023 Albumin BCP dye [Mass/Vol] 3.6 G/dL Invalid Interpretation Code 3.4 - 4.8 G/dL AO ADM SS Calcium [Mass/Vol] 8.9 mg/dL Invalid Interpretation Code 8.4 - 10.2 mg/dL AO ADM SS Chloride [Moles/Vol] 100 mmol/L Invalid Interpretation Code 98 - 107 mmol/L AO ADM SS CO2 [Moles/Vol] 30 mmol/L Invalid Interpretation Code 23 - 31 mmol/L AO ADM SS Creatinine [Mass/Vol] 0.93 mg/dL Invalid Interpretation Code 0.55 - 1.02 mg/dL AO ADM SS Electrolyte Balance 9.0 mEq/L Invalid Interpretation Code 4.0 - 15.0 mEq/L AO ADM SS GFR/1.73 sq M.predicted among blacks MDRD (S/P/Bld) [Vol rate/Area] 74 ml/min/1.73sqm Invalid Interpretation Code AO Chemistry S GFR/1.73 sq M.predicted among non-blacks MDRD (S/P/Bld) [Vol rate/Area] 61 ml/min/1.73sqm Invalid Interpretation Code AO Chemistry S Glucose [Mass/Vol] 258 mg/dL Invalid Interpretation Code 80 - 115 mg/dL AO ADM SS HbA1c (Bld) [Mass fraction] 6.7 % Invalid Interpretation Code 4.3 - 6.4 % AO ADM SS Potassium [Moles/Vol] 4.7 mmol/L Invalid Interpretation Code 3.5 - 5.1 mmol/L AO ADM SS Sodium [Moles/Vol] 139 mmol/L Invalid Interpretation Code 136 - 145 mmol/L AO ADM SS Urea nitrogen [Mass/Vol] 21 mg/dL Invalid Interpretation Code 7 - 18 mg/dL AO ADM SS Urea nitrogen/Creatinine [Mass ratio] 23 ratio Invalid Interpretation Code 7 - 27 ratio AO ADM SS LABORATORYOrdered By: Jon Rosales on 02-03-2023 Basophil, Absolute 0.0 103/mcL Invalid Interpretation Code 0.0 - 0.2 10^3/mcL AO Workflow SS Basophils/100 WBC (Bld) 0.5 % Invalid Interpretation Code 0.0 - 2.5 % AO Workflow SS Eosinophil, Absolute 0.1 103/mcL Invalid Interpretation Code 0.0 - 0.4 10^3/mcL AO Workflow SS Eosinophils/100 WBC (Bld) 2.0 % Invalid Interpretation Code 0.0 - 7.0 % AO Workflow SS Erythrocyte distribution width (RBC) [Ratio] 15.2 % Invalid Interpretation Code 11.5 - 14.5 % AO Workflow SS Hematocrit (Bld) [Volume fraction] 36.6 % Invalid Interpretation Code 37.0 - 47.0 % AO Workflow SS Hemoglobin (Bld) [Mass/Vol] 12.0 G/dL Invalid Interpretation Code 12.0 - 16.0 G/dL AO Workflow SS Lymphocyte, Absolute 2.2 103/mcL Invalid Interpretation Code 0.8 - 3.9 10^3/mcL AO Workflow SS Lymphocytes/100 WBC (Bld) 29.2 % Invalid Interpretation Code 10.0 - 50.0 % AO Workflow SS MCH (RBC) [Entitic mass] 29.5 pg Invalid Interpretation Code 27.0 - 31.2 pg AO Workflow SS MCHC 32.8 G/dL Invalid Interpretation Code 33.0 - 37.0 G/dL AO Workflow SS MCV (RBC) [Entitic vol] 90.0 fL Invalid Interpretation Code 80.0 - 94.0 fL AO Workflow SS Monocyte, Absolute 0.5 103/mcL Invalid Interpretation Code 0.2 - 1.0 10^3/mcL AO Workflow SS Monocytes/100 WBC (Bld) 6.3 % Invalid Interpretation Code 1.7 - 13.0 % AO Workflow SS Neutrophil, Absolute 4.7 103/mcL Invalid Interpretation Code 2.9 - 6.2 10^3/mcL AO Workflow SS Neutrophils/100 WBC (Bld) 62.0 % Invalid Interpretation Code 37.0 - 80.0 % AO Workflow SS Platelet mean volume (Bld) [Entitic vol] 7.0 fL Invalid Interpretation Code 7.4 - 10.4 fL AO Workflow SS Platelets (Bld) [#/Vol] 234 103/mcL Invalid Interpretation Code 130 - 400 10^3/mcL AO Workflow SS RBC (Bld) [#/Vol] 4.07 106/mcL Invalid Interpretation Code 4.20 - 5.40 10^6/mcL AO Workflow SS WBC (Bld) [#/Vol] 7.5 103/mcL Invalid Interpretation Code 4.6 - 10.8 10^3/mcL AO Workflow SS Laboratory - Chemistry and C hemistry - challengeOrdered By: Dr. Shaw on 09-20-2022 Natriuretic peptide B (Bld) [Mass/Vol] 14.9 pg/mL 0-100 [facility] Basophil percentageOrdered B y: Dr. Mckeon on 09-17-2022 Chloride [Moles/Vol] 97 mmol/L 98-107 [facility] Glucose [Mass/Vol] 146 mg/dL 74-106 [facility] Comment on above: Fasting Glucose resu lt greater than or equal to 126 mg/dL suggests DIABETES MELLITUS per A.D.A. criteria. Potassium [Moles/Vol] 3.6 mmol/L 3.5-5.1 [facility] Sodium [Moles/Vol] 139 mmol/L 136-145 [facility] Glucose Glucometer (BldC) [M ass/Vol]Ordered By: Dr. Anderson on 09-17-2022 Glucose [Mass/Vol] 129 mg/dL 74-106 [facility] Comment on above: MANAGEMENT OF PATIEN T CARE PER NURSING PROTOCOL Influenza virus A and B and SARS-CoV-2 (COVID-19) Ag panel - Upper respiratory specimOrdered By: Dr. Anderson on 09-17-2022 SARS-CoV-2 (COVID-19) RNA ROJELIO+probe Ql (Resp) [facility] Laboratory - Chemistry and C hemistry - challengeOrdered By: Dr. Mckeon on 09-17-2022 CO2 [Moles/Vol] 32.0 mmol/L 21.0-32.0 [facility] Urea nitrogen/Creatinine [Mass ratio] 18.4 mg/mg - [facility] No Panel InformationOrdered By: Dr. Mckeon on 09-17-2022 Estimated Creatinine Clearance Calc 56.41 ml/min [facility] Estimated GFR (MDRD) Amer 84 mL/min >60 [facility] Comment on above: GFR Calc Estimated GFR (MDRD) Non-Af Amer 70 mL/min >60 [facility] Comment on above: Non- GFR Calc Serum or plasma calcium dread urement (mass/volume)Ordered By: Dr. Mckeon on 09-17-2022 Calcium [Mass/Vol] 8.8 mg/dL 8.5-10.1 [facility] Serum or plasma creatinine m easurement (mass/volume)Ordered By: Dr. Mckeon on 09-17-2022 Creatinine [Mass/Vol] 0.87 mg/dL 0.55-1.02 [facility] Comment on above: The validity of the calculated GFR & GFRAA in patients over 70 years has not been determined. Clinical correlation is essential. Serum or plasma urea nitroge n measurement (mass/volume)Ordered By: Dr. Mckeon on 09-17-2022 Urea nitrogen [Mass/Vol] 16 mg/dL 7-18 [facility] Thin prep Papanicolaou smear with manual screeningOrdered By: Dr. Mckeon on 09-17-2022 Thin prep Papanicolaou smear with manual screening 10 5-15 [facility] Absolute lymphocyte countOrd ered By: Dr. Dee on 09-16-2022 Lymphocytes Auto (Unsp spec) [#/Vol] 1.58 10*3/uL 0.83-4.51 [facility] Assessment of wrist artery p atency prior to arterial punctureOrdered By: Dr. Dee on 09-16-2022 Arterial patency Wrist artery --pre arterial puncture Positive [facility] Base excessOrdered By: Dr. Krystin dean on 09-16-2022 Base excess Calc (BldV) [Moles/Vol] 7 mmol/L -2-2 [facility] Basophil percentageOrdered B y: Dr. Dee on 09-16-2022 Basophil percentage 31.9 mmol/L 22-26 [facility] Basophils/100 WBC (Bld) 95 % 95-99 [facility] Basophil percentage 0 SEEN /hpf 0-5 [facility] Basophils/100 WBC (Bld) 0.4 % 0-1 [facility] Eosinophils/100 WBC (Bld) 3.3 % 0-5 [facility] Neutrophils (Bld) [#/Vol] 5.8 10*3/uL 2.0-7.7 [facility] Neutrophils/100 WBC (Bld) 69.5 % 47-70 [facility] WBC (Bld) [#/Vol] 8.4 10*3/uL 4.4-11.0 [facility] Bilirubin Test strip Ql (U)O rdered By: Dr. Dee on 09-16-2022 Bilirubin Ql (U) Negative Negative [facility] Blood erythrocytes count (nu mber/volume)Ordered By: Dr. Dee on 09-16-2022 RBC (Bld) [#/Vol] 4.41 10*6/uL 4.2-5.4 [facility] Blood hemoglobin measurement (mass/volume)Ordered By: Dr. Dee on 09-16-2022 Hemoglobin (Bld) [Mass/Vol] 12.2 g/dL 12.0-15.0 [facility] Blood lymphocytes/100 leukoc ytesOrdered By: Dr. Dee on 09-16-2022 Lymphocytes/100 WBC (Bld) 18.8 % 19-41 [facility] Blood monocytes/100 leukocyt esOrdered By: Dr. Dee on 09-16-2022 Monocytes/100 WBC (Bld) 7.5 % 0-10 [facility] Blood platelet mean volumeOr dered By: Dr. Dee on 09-16-2022 Platelet mean volume (Bld) [Entitic vol] 10.1 fL 6.2-12.0 [facility] CO2 (BldA) [Partial pressure ]Ordered By: Dr. Dee on 09-16-2022 CO2 (Bld) [Partial pressure] 53.2 mm[Hg] 35-45 [facility] Determination of erythrocyte mean corpuscular volume (MCV)Ordered By: Dr. Dee on 09-16-2022 MCV (RBC) [Entitic vol] 90.0 fL 81-99 [facility] Hematocrit Auto (Bld) [Volum e fraction]Ordered By: Dr. Dee on 09-16-2022 Hematocrit (Bld) [Volume fraction] 39.7 % 37-47 [facility] Ketones Test strip Ql (U)Ord ered By: Dr. Dee on 09-16-2022 Ketones Ql (U) Negative Negative [facility] Laboratory - Chemistry and C hemistry - challengeOrdered By: Dr. Dee on 09-16-2022 Natriuretic peptide B (Bld) [Mass/Vol] 76.4 pg/mL 0-100 [facility] Laboratory - Hematology and Cell countsOrdered By: Dr. Dee on 09-16-2022 Erythrocyte distribution width (RBC) [Entitic vol] 45.8 fL 35.1-43.9 [facility] Erythrocyte distribution width (RBC) [Ratio] 14.1 % 11.6-14.6 [facility] Immature granulocytes/100 WBC (Bld) 0.500 % 0.0-0.9 [facility] Comment on above: IG% - Immature Granu locytes (promyelocytes, myelocytes and metamyelocytes) > 1% indicates that a LEFT SHIFT is Present. MCH (RBC) [Entitic mass] 27.7 pg 27.0-32.0 [facility] Nucleated RBC/100 WBC (Bld) [Ratio] 0 % 0-5 [facility] MCHC Auto (RBC) [Mass/Vol]Or dered By: Dr. Dee on 09-16-2022 MCHC (RBC) [Mass/Vol] 30.7 g/dL 32-36 [facility] Mucus LM Ql (Urine sed)Order ed By: Dr. Dee on 09-16-2022 Mucus Ql (Urine sed) 0 SEEN /hpf [facility] Nitrite Test strip Ql (U)Ord ered By: Dr. Dee on 09-16-2022 Nitrite Ql (U) Negative Negative [facility] No Panel InformationOrdered By: Dr. Dee on 09-16-2022 Blood Gas Liter Flow 2.0 /min [facility] Blood Gas Sample Site L Radial [facility] Blood Gas Specimen Type ART [facility] Blood Gas Total CO2 34 mmol/L [facility] Oxygen Delivery Device Cannula [facility] Troponin I High Sensitivity 6 pg/mL 3.0-54.0 [facility] Comment on above: Please Note: New Selene t Units and Gender Specific Reference Ranges. For more information see Policy Stat Procedure [place] High Sensitivity Troponin (TNIH) and attachments. Oxygen (BldA) [Partial press ure]Ordered By: Dr. Dee on 09-16-2022 Oxygen (Bld) [Partial pressure] 79 mmHG 75-100 [facility] Platelets bldOrdered By: Dr. Dee on 09-16-2022 Platelets (Bld) [#/Vol] 254 10*3/uL 150-450 [facility] Protein Test strip Ql (U)Ord ered By: Dr. Dee on 09-16-2022 Protein Ql (U) Negative Negative [facility] Squamous epithelial cells de tection in urine sediment by light microscopyOrdered By: Dr. Dee on 09-16-2022 Epithelial cells.squamous LM Ql (Urine sed) 0-5 SEEN /hpf 5-10 [facility] Urine blood detectionOrdered By: Dr. Dee on 09-16-2022 RBC Ql (U) Negative Negative [facility] RBC Ql (U) 0 SEEN /hpf 0-5 [facility] Urine clarityOrdered By: Dr. Dee on 09-16-2022 Clarity (U) Clear Clear [facility] Urine color determinationOrd ered By: Dr. Dee on 09-16-2022 Color (U) Yellow Yellow [facility] Urine glucose detectionOrder ed By: Dr. Dee on 09-16-2022 Glucose Ql (U) Normal mg/dl Normal [facility] Urine leukocyte esterase det ection by dipstickOrdered By: Dr. Dee on 09-16-2022 Leukocyte esterase Test strip Ql (U) Negative Negative [facility] Urine pHOrdered By: Dr. Lloyd joshi on 09-16-2022 pH (U) 7.0 [pH] 5.0 - 8.0 [facility] Urine sediment bacteria coun t by microscopy (number/high power field)Ordered By: Dr. Dee on 09-16-2022 Bacteria LM.HPF (Urine sed) [#/Area] 0 /[HPF] None Seen [facility] Urine specific gravity measu rementOrdered By: Dr. Dee on 09-16-2022 Specific gravity (U) [Rel density] 1.005 1.002-1.030 [facility] Urobilinogen Auto test strip Ql (U)Ordered By: Dr. Dee on 09-16-2022 Urobilinogen Ql (U) Normal mg/dl Normal [facility] pH measurementOrdered By: Dr Nikhil Dee on 09-16-2022 pH (Unsp spec) 7.39 [pH] 7.35-7.45 [facility] No Panel InformationOrdered By: Dr. Shaw on 09-15-2022 D-Dimer Quantitative (PE/DVT) 0.65 FEU/ug/m 0.27-0.49 [facility] Comment on above: D-Dimer ELEVATED (>0 .49): Additional studies and clinicalassessments are indicated to conclude diagnosis of:Deep Vein Thrombosis (DVT) or Pulmonary Embolism (PE)CRITICAL VALUE VERIFIED. CALLED TO SHELDON CHILEL09/15/22 [facility]7 Jocy Leal.RESULTS READ BACK BY SAME. Laboratory - Hematology and Cell countson 09-13-2022 HbA1c (Bld) [Mass fraction] 7.1 % [facility] Laboratory - Drug toxicology Ordered By: Dr. Trejo on 07-07-2022 Amphetamines Ql (U) Negative <1000 ng/mL [facility] Benzodiazepines Ql (U) Negative < 200 ng/mL [facility] Cannabinoids Screen Ql (U) Negative < 50 ng/mL [facility] Cocaine Ql (U) Negative < 300 ng/mL [facility] Opiates Ql (U) Positive < 300 ng/mL [facility] No Panel InformationOrdered By: Dr. Trejo on 07-07-2022 MDMA (Ecstasy) Screen Negative < 500 ng/mL [facility] Miscellaneous Test See comment [facility] Comment on above: [id number] 6+OXYCODONE-B UND (ng/mL) DRUG RESULT SCREEN CUTOFF____ Amphetamines,Urine Negative ng/mL 1000 Amphetamine test includes Amphetamine and Methamphetamine.Barbiturates Negative ng/mL 200Benzodiazepines Negative ng/mL 200Cannabinoid Negative ng/mL 20Cocaine (Metab) Negative ng/mL 300Opiates Positive ng/mL 300 Opiates test includes Codeine, Morphine, Hydromorphone, Hydrocodone. Please Note: Confirmation performed by Mass Spectrometry. Codeine Negative 300 Morphine Negative 300 Hydromorphone Positive Hydromorphone Conf, MS, Ur 1291 ng/mL 300 Hydrocodone NegativeOxycodone/Oxymorphone,Urine Positive ng/mL 300 Test includes Oxydodone and Oxymorphone. Oxycodone Positive Oxycodone Conf, MS, UR 417 ng/mL 300 Oxymorphone Negative 300 TESTING PERFORMED AT [facility]. ORIGINAL REPORT ON FILE IN LAB CONTAINS ADDITIONAL TEST SITE INFORMATION. Urine Barbiturates Screen Negative < 200 ng/mL [facility] Urine Drug Screen Comment [facility] Comment on above: CONFIRMATORY TESTING FOR ALL POSITIVE URINE DRUG SCREENRESULTS WILL ONLY BE SENT OUT UPON PHYSICIAN ORDER. VISTA Urine Drug Screen methods provide only preliminaryanalytical test results. A more specific alternate chemicalmethod must be used in order to obtain a confirmedanalytical result. Gas chromatography/mass spectrometery(GC/MS) is the preferred confirmatory method. Clinicalconsideration and professional judgement should be appliedto any drug of abuse test result, particularly whenpreliminary positive results are used. URINE TCA TESTING MUST BE ORDERED SEPARATELY. USE TESTMNEMONIC: [facility] Urine Methadone Screen Negative < 300 ng/mL [facility] Urine phencyclidine (PCP) de tectionOrdered By: Dr. Trejo on 07-07-2022 Phencyclidine Ql (U) Negative < 25 ng/mL [facility] CNPNon 06-23-2022 CNPN Telephone (ORAVON) FLEX WOOTEN ([id number]) 1960 F Date Time Provider Department 06/23/22 NICOLÁS AGGARWAL During your visit today, we recorded the following information about you: Mendy Adams RN 06/23/2022 8:51 AM Signed I left a message for Tessie at [employer] regarding their addendum request. If they have Dr. Aggarwal' note, they have all the answers they need. Not sure if they have the patient's clinic note. Mendy Adams RN Allergies As of Date: 06/23/2022 Noted Allergy Reaction NEURONTIN (GABAPENTIN) 07/14/2005 1 - Mental Status Change NIACIN 11/24/2006 2 - Rash 4 - Hives 9 - Itching Date Reviewed: 05/19/2022 Reviewed by: July Capone MA - Fully Assessed Reason for Visit: Question [9602] Prescriptions as of 06/25/2022 - atenolol (TENORMIN) 25 mg tablet Take 25 mg by mouth once daily. - levothyroxine (SYNTHROID) 50 mcg tablet 50 mcg. - SYNTHROID 50 mcg tablet - metFORMIN ER (GLUMETZA) 500 mg 24 hr tablet Take 500 mg by mouth daily with breakfast. - simvastatin (ZOCOR) 20 mg tablet Take 20 mg by mouth daily at bedtime. - meloxicam (MOBIC) 7.5 mg tablet Take 7.5 mg by mouth once daily. - BUPROPION HCL ORAL Take 1,500 mg by mouth once daily. - oxyCODONE-acetaminophen (PERCOCET) 5-325 mg tablet Take 1 tablet by mouth once daily. - aspirin, enteric coated (ASPIR-81) 81 mg EC tablet Take 81 mg by mouth once daily. - tiZANidine (ZANAFLEX) 4 mg tablet Take 4 mg by mouth once daily. - folic acid 1 mg tablet Take 400 mg by mouth once daily. - Magnesium 250 mg tab Take 250 mg by mouth once daily. - VITAMIN B COMPLEX ORAL Take by mouth. - rivaroxaban (XARELTO) 10 mg tablet Take 20 mg by mouth once daily. - ERGOCALCIFEROL, VITAMIN D2, (VITAMIN D2 ORAL) Take by mouth. - LACTOBACILLUS ACIDOPHILUS (PROBIOTIC ORAL) Take by mouth. - MULTIVITAMIN ORAL Take by mouth. - lisinopril-hydrochlorot hiazide (PRINZIDE, ZESTORETIC) 20-25 mg per tablet Take 1 tablet by mouth once daily. - sertraline (ZOLOFT) 50 mg tablet Take 50 mg by mouth once daily. - hydrOXYzine HCl 50 mg tablet Take 50 mg by mouth twice daily. - Omeprazole 40 mg capsule Take 40 mg by mouth once daily. - traZODONE 100 mg ORAL tablet Take 1 tablet by mouth daily at bedtime. - LORazepam (ATIVAN) 1 mg ORAL tablet Take 1 tablet by mouth twice daily as needed. 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 MULTIVITAMIN ORAL Take by mouth. lisinopril-hydrochlorot hiazide (PRINZIDE, ZESTORETIC) 20-25 mg per tablet Take [...] ADDL INTERSPACE ARTHRP KNE CONDYLEANDPLATU MEDIALANDLAT COMPARTMENTS 2014 left COLONOSCOPY FLX DX W/COLLJ [...] OF 2009 left knee -- meniscus repair; Dr. Weller, [facility] SIGMOIDOSCOPY FLX DX W/COLLJ SPEC BR/WA [...] and medications - opioids Progression: Worsening Previous (more content not included)... Normal [facility] Laboratory - Hematology and Cell countson 05-19-2022 HbA1c (Bld) [Mass fraction] 7.5 % [facility] Work Phone: XR FOOT 3V AP/LAT/OBL LTon 0 05-19-2022 XR FOOT 3V AP/LAT/OBL LT * * *Final Report* * * DATE OF EXAM: May 19 2022 10:21AM AFR [id number] - XR FOOT 3V AP/LAT/OBL LT / PROCEDURE REASON: Pain * * * * Physician Interpretation * * * * EXAMINATION / TECHNIQUE: XR FOOT 3V AP/LAT/OBL LT HISTORY: LEFT FOOT PAIN, NEUROPATHY Pain COMPARISON: 04/09/19. RESULT: Remote bunionectomy. No acute fracture or dislocation. Pes planus. Mild first MTP joint and scattered, mild midfoot osteoarthritis. A small insertional Achilles enthesophyte is noted. IMPRESSION: Remote postoperative and degenerative changes. Drawing Machine Operator: JUANITA Transcribe Date/Time: May 19 2022 10:24A Dictated by : ARACELY COATES MD This examination was interpreted and the report reviewed and electronically signed by: ARACELY COATES MD on May 19 2022 10:25AM EST [id number] Normal [facility] FOOT GENERAL 3V AP/LAT/OB L LEFTon 05-19-2022 [facility] Absolute lymphocyte counton 01-31-2022 Lymphocytes Auto (Unsp spec) [#/Vol] 0.87 10*3/uL 0.83-4.51 [facility] Work Phone: Basophil percentageon 2021 Basophil percentage 0 SEEN /hpf [facility] Work Phone: Basophils/100 WBC (Bld) 0.4 % 0-1 [facility] Work Phone: Bilirubin [Mass/Vol] 0.30 mg/dL 0.20-1.00 [facility] Work Phone: Comment on above: For patients on eltr ombopag therapy, use of Dimension [place] TBIL is not recommended. Chloride [Moles/Vol] 103 mmol/L 98-107 [facility] Work Phone: Eosinophils/100 WBC (Bld) 0.0 % 0-5 [facility] Work Phone: Glucose [Mass/Vol] 545 mg/dL 74-106 [facility] Work Phone: Comment on above: Critical Result(s) C alled at: 00:43:30 01/31/2022 by: PERRY IGLESIAS TO RICA STEPHEN. Results read back by same.Glucose result greater than or equal to 200 mg/dLsuggests DIABETES MELLITUS per A.D.A. criteria. Neutrophils (Bld) [#/Vol] 7.0 10*3/uL 2.0-7.7 [facility] Work Phone: Neutrophils/100 WBC (Bld) 78.6 % 47-70 [facility] Work Phone: Potassium [Moles/Vol] 4.6 mmol/L 3.5-5.1 [facility] Work Phone: Comment on above: Moderate Hemolysis, Result may be falsely increased. Protein [Mass/Vol] 7.4 g/dL 6.4-8.2 [facility] Work Phone: Sodium [Moles/Vol] 135 mmol/L 136-145 [facility] Work Phone: WBC (Bld) [#/Vol] 8.9 10*3/uL 4.4-11.0 [facility] Work Phone: Bilirubin Test strip Ql (U)o n 01-31-2022 Bilirubin Ql (U) Negative Negative [facility] Work Phone: Blood erythrocytes count (nu mber/volume)on 01-31-2022 RBC (Bld) [#/Vol] 4.98 10*6/uL 4.2-5.4 [facility]: Blood hemoglobin measurement (mass/volume)on 01-31-2022 Hemoglobin (Bld) [Mass/Vol] 13.5 g/dL 12.0-15.0 [facility] Work Phone: Blood lymphocytes/100 leukoc yteson 01-31-2022 Lymphocytes/100 WBC (Bld) 9.8 % 19-41 [facility] Work Phone: Blood monocytes/100 leukocyt eson 01-31-2022 Monocytes/100 WBC (Bld) 6.4 % 0-10 [facility] Work Phone: Blood platelet mean volumeon 01-31-2022 Platelet mean volume (Bld) [Entitic vol] 9.6 fL 6.2-12.0 [facility] Work Phone: Determination of erythrocyte mean corpuscular volume (MCV)on 01-31-2022 MCV (RBC) [Entitic vol] 85.7 fL 81-99 [facility] Work Phone: Glucose Glucometer (BldC) [M ass/Vol]on 01-31-2022 Glucose [Mass/Vol] 399 mg/dL 74-106 [facility] Work Phone: Comment on above: MANAGEMENT OF PATIEN T CARE PER NURSING PROTOCOL HCO3 (BldA) [Moles/Vol]on HCO3 (Bld) [Moles/Vol] 25 mmol/L 22-26 [facility] Work Phone: Hematocrit Auto (Bld) [Volum e fraction]on 01-31-2022 Hematocrit (Bld) [Volume fraction] 42.7 % 37-47 [facility] Work Phone: Ketones Test strip Ql (U)on 01-31-2022 Ketones Ql (U) Negative Negative [facility] Work Phone: Laboratory - Chemistry and C hemistry - challengeon 01-31-2022 CO2 [Moles/Vol] 26 mmol/L 23-33 [facility] Work Phone: ALP [Catalytic activity/Vol] 89 U/L 45-117 [facility] Work Phone: ALT [Catalytic activity/Vol] 44 U/L 13-56 [facility] Work Phone: CO2 [Moles/Vol] 26.0 mmol/L 21.0-32.0 [facility] Work Phone: Globulin (S) [Mass/Vol] 4.0 g/dL 2.2-4.2 [facility] Work Phone: Urea nitrogen/Creatinine [Mass ratio] 24.0 mg/mg 10-20 [facility] Work Phone: Laboratory - Hematology and Cell countson 01-31-2022 Erythrocyte distribution width (RBC) [Entitic vol] 46.8 fL 35.1-43.9 [facility] Work Phone: Erythrocyte distribution width (RBC) [Ratio] 14.9 % 11.6-14.6 [facility] Work Phone: Immature granulocytes/100 WBC (Bld) 4.800 % 0.0-0.9 [facility] Work Phone: Comment on above: IG% - Immature Granu locytes (promyelocytes, myelocytes and metamyelocytes) > 1% indicates that a LEFT SHIFT is Present. MCH (RBC) [Entitic mass] 27.1 pg 27.0-32.0 [facility] Work Phone: Nucleated RBC/100 WBC (Bld) [Ratio] 0 % 0-5 [facility] Work Phone: MCHC Auto (RBC) [Mass/Vol]on 01-31-2022 MCHC (RBC) [Mass/Vol] 31.6 g/dL 32-36 [facility] Work Phone: Mucus LM Ql (Urine sed)on Mucus Ql (Urine sed) 0 SEEN /hpf [facility] Work Phone: Nitrite Test strip Ql (U)on 01-31-2022 Nitrite Ql (U) Negative Negative [facility] Work Phone: No Panel Informationon 01-31 Bed Mix Venous Bld PCO2 at Pat Temp 43.6 mmHg 41-51 [facility] Work Phone: Blood Gas Specimen Type REJI [facility] Work Phone: Venous Blood Base Excess -1 mmol/L -1.0-3.5 [facility] Work Phone: Estimated Creatinine Clearance Calc 39.78 ml/min [facility] Work Phone: Estimated GFR (MDRD) Amer 56 mL/min >60 [facility] Work Phone: Comment on above: GFR Calc Estimated GFR (MDRD) Non-Af Amer 46 mL/min >60 [facility] Work Phone: Comment on above: Non- GFR Calc PO2 venouson 01-31-2022 Oxygen (BldV) [Partial pressure] 42 mm[Hg] 25-40 [facility] Work Phone: Platelets bldon 01-31-2022 Platelets (Bld) [#/Vol] 317 10*3/uL 150-450 [facility] Work Phone: Protein Test strip Ql (U)on 01-31-2022 Protein Ql (U) Negative Negative [facility] Work Phone: Serum or plasma acetone dread urement (mass/volume)on 01-31-2022 Acetone [Mass/Vol] Negative NEG [facility] Work Phone: Serum or plasma albumin dread urement (mass/volume)on 01-31-2022 Albumin [Mass/Vol] 3.4 g/dL 3.2-5.0 [facility] Work Phone: Serum or plasma albumin/glob ulin mass ratioon 01-31-2022 Albumin/Globulin [Mass ratio] 0.8 {ratio} 0.9-2.4 [facility] Work Phone: Serum or plasma calcium dread urement (mass/volume)on 01-31-2022 Calcium [Mass/Vol] 8.7 mg/dL 8.5-10.1 [facility] Work Phone: Serum or plasma creatinine m easurement (mass/volume)on 01-31-2022 Creatinine [Mass/Vol] 1.25 mg/dL 0.55-1.02 [facility] Work Phone: Comment on above: The validity of the calculated GFR & GFRAA in patients over 70 years has not been determined. Clinical correlation is essential. Serum or plasma urea nitroge n measurement (mass/volume)on 01-31-2022 Urea nitrogen [Mass/Vol] 30 mg/dL 7-18 [facility] Work Phone: Squamous epithelial cells de tection in urine sediment by light microscopyon 01-31-2022 Epithelial cells.squamous LM Ql (Urine sed) 0 SEEN /hpf [facility] Work Phone: Thin prep Papanicolaou smear with manual screeningon 01-31-2022 Thin prep Papanicolaou smear with manual screening 20 U/L 15-37 [facility] Work Phone: Comment on above: Moderate Hemolysis, Result may be falsely increased. Thin prep Papanicolaou smear with manual screening 6 5-15 [facility] Work Phone: Urine blood detectionon -0 RBC Ql (U) Negative Negative [facility] Work Phone: RBC Ql (U) 0 SEEN /hpf [facility] Work Phone: Urine clarityon 01-31-2022 Clarity (U) Clear Clear [facility] Work Phone: Urine color determinationon 01-31-2022 Color (U) Straw Yellow [facility] Work Phone: Urine glucose detectionon Glucose Ql (U) 1000 mg/dl Normal [facility] Work Phone: Urine leukocyte esterase det ection by dipstickon 01-31-2022 Leukocyte esterase Test strip Ql (U) Negative Negative [facility] Work Phone: Urine pHon 01-31-2022 pH (U) 6.0 [pH] [facility] Work Phone: Urine sediment bacteria coun t by microscopy (number/high power field)on 01-31-2022 Bacteria LM.HPF (Urine sed) [#/Area] 0 /[HPF] None Seen [facility] Work Phone: Urine specific gravity measu rementon 01-31-2022 Specific gravity (U) [Rel density] 1.015 [facility] Work Phone: Urobilinogen Auto test strip Ql (U)on 01-31-2022 Urobilinogen Ql (U) Normal mg/dl Normal [facility] Work Phone: Vital signson 01-31-2022 Oxygen saturation in Blood 76 % 50-70 [facility] Work Phone: pH measurementon 01-31-2022 pH (Unsp spec) 7.36 [pH] 7.32-7.42 [facility] Work Phone: [phone] Absolute lymphocyte counton 01-25-2022 Lymphocytes Auto (Unsp spec) [#/Vol] 1.06 10*3/uL 0.83-4.51 [facility] Work Phone: Basophil percentageon 2021 Basophils/100 WBC (Bld) 0.7 % 0-1 [facility] Work Phone: [phone] Chloride [Moles/Vol] 104 mmol/L 98-107 [facility] Work Phone: [phone] Eosinophils/100 WBC (Bld) 2.9 % 0-5 [facility] Work Phone: Glucose [Mass/Vol] 166 mg/dL 74-106 [facility] Work Phone: [phone] Comment on above: Fasting Glucose resu lt greater than or equal to 126 mg/dL suggests DIABETES MELLITUS per A.D.A. criteria. Neutrophils (Bld) [#/Vol] 4.2 10*3/uL 2.0-7.7 [facility] Work Phone: Neutrophils/100 WBC (Bld) 68.9 % 47-70 [facility] Work Phone: [phone] Potassium [Moles/Vol] 4.1 mmol/L 3.5-5.1 [facility] Work Phone: Sodium [Moles/Vol] 139 mmol/L 136-145 [facility] Work Phone: [phone] WBC (Bld) [#/Vol] 6.1 10*3/uL 4.4-11.0 [facility] Work Phone: Blood erythrocytes count (nu mber/volume)on 01-25-2022 RBC (Bld) [#/Vol] 4.60 10*6/uL 4.2-5.4 [facility] Work Phone: Blood hemoglobin measurement (mass/volume)on 01-25-2022 Hemoglobin (Bld) [Mass/Vol] 12.3 g/dL 12.0-15.0 [facility] Work Phone: Blood lymphocytes/100 leukoc yteson 01-25-2022 Lymphocytes/100 WBC (Bld) 17.3 % 19-41 [facility] Work Phone: Blood monocytes/100 leukocyt eson 01-25-2022 Monocytes/100 WBC (Bld) 9.9 % 0-10 [facility] Work Phone: Blood platelet mean volumeon 01-25-2022 Platelet mean volume (Bld) [Entitic vol] 9.2 fL 6.2-12.0 [facility] Work Phone: Determination of erythrocyte mean corpuscular volume (MCV)on 01-25-2022 MCV (RBC) [Entitic vol] 87.8 fL 81-99 [facility] Work Phone: Hematocrit Auto (Bld) [Volum e fraction]on 01-25-2022 Hematocrit (Bld) [Volume fraction] 40.4 % 37-47 [facility] Work Phone: Laboratory - Chemistry and C hemistry - challengeon 01-25-2022 CO2 [Moles/Vol] 31.0 mmol/L 21.0-32.0 [facility] Work Phone: Urea nitrogen/Creatinine [Mass ratio] 11.1 mg/mg 10-20 [facility] Work Phone: Laboratory - Hematology and Cell countson 01-25-2022 Erythrocyte distribution width (RBC) [Entitic vol] 50.0 fL 35.1-43.9 [facility] Work Phone: Erythrocyte distribution width (RBC) [Ratio] 15.7 % 11.6-14.6 [facility] Work Phone: Immature granulocytes/100 WBC (Bld) 0.300 % 0.0-0.9 [facility] Work Phone: Comment on above: IG% - Immature Granu locytes (promyelocytes, myelocytes and metamyelocytes) > 1% indicates that a LEFT SHIFT is Present. MCH (RBC) [Entitic mass] 26.7 pg 27.0-32.0 [facility] Work Phone: Nucleated RBC/100 WBC (Bld) [Ratio] 0 % 0-5 [facility] Work Phone: MCHC Auto (RBC) [Mass/Vol]on 01-25-2022 MCHC (RBC) [Mass/Vol] 30.4 g/dL 32-36 [facility] Work Phone: No Panel Informationon 01-25 D-Dimer Quantitative (PE/DVT) 0.85 FEU/ug/m 0.27-0.49 [facility] Work Phone: Comment on above: RESULTS CALLED TO LAVINIA RODRÍGUEZ RN 01/25/22 Woody Chairez.REPORT READ BACK BY SAME.D-Dimer ELEVATED (>0.49): Additional studies and clinicalassessments are indicated to conclude diagnosis of:Deep Vein Thrombosis (DVT) or Pulmonary Embolism (PE) Estimated Creatinine Clearance Calc 61.39 ml/min [facility] Work Phone: Estimated GFR (MDRD) Amer 91 mL/min >60 [facility] Work Phone: Comment on above: GFR Calc Estimated GFR (MDRD) Non-Af Amer 75 mL/min >60 [facility] Work Phone: Comment on above: Non- GFR Calc Troponin I High Sensitivity < 3 pg/mL 3.0-54.0 [facility] Work Phone: Comment on above: Please Note: New Selene t Units and Gender Specific Reference Ranges. For more information see Policy Stat Procedure [place] High Sensitivity Troponin (TNIH) and attachments. SARS-CoV-2 & FLU Antigen (Rapid) SARS-CoV-2 (COVID 19) [facility] Work Phone: Platelets bldon 01-25-2022 Platelets (Bld) [#/Vol] 181 10*3/uL 150-450 [facility] Work Phone: Serum or plasma calcium dread urement (mass/volume)on 01-25-2022 Calcium [Mass/Vol] 8.5 mg/dL 8.5-10.1 [facility] Work Phone: Serum or plasma creatinine m easurement (mass/volume)on 01-25-2022 Creatinine [Mass/Vol] 0.81 mg/dL 0.55-1.02 [facility] Work Phone: Comment on above: The validity of the calculated GFR & GFRAA in patients over 70 years has not been determined. Clinical correlation is essential. Serum or plasma urea nitroge n measurement (mass/volume)on 01-25-2022 Urea nitrogen [Mass/Vol] 9 mg/dL 7-18 [facility] Work Phone: Thin prep Papanicolaou smear with manual screeningon 01-25-2022 Thin prep Papanicolaou smear with manual screening 4 5- [facility] Work Phone: Culture, urineon 11-12-2021 Bacteria identified Cx Nom (U) Presumptive Lactobacillus sp. [facility] Work Phone: Absolute lymphocyte counton 11-10-2021 Lymphocytes Auto (Unsp spec) [#/Vol] 1.61 10*3/uL 0.83-4.51 [facility] Work Phone: Basophil percentageon 2021 Basophils/100 WBC (Bld) 0.7 % 0-1 [facility] Work Phone: Chloride [Moles/Vol] 102 mmol/L 98-107 [facility] Work Phone: Eosinophils/100 WBC (Bld) 3.1 % 0-5 [facility] Work Phone: Glucose [Mass/Vol] 281 mg/dL 74-106 [facility] Work Phone: Comment on above: Glucose result great er than or equal to 200 mg/dLsuggests DIABETES MELLITUS per A.D.A. criteria. Neutrophils (Bld) [#/Vol] 3.7 10*3/uL 2.0-7.7 [facility] Work Phone: Neutrophils/100 WBC (Bld) 60.3 % 47-70 [facility] Work Phone: Potassium [Moles/Vol] 4.1 mmol/L 3.5-5.1 [facility] Work Phone: Sodium [Moles/Vol] 138 mmol/L 136-145 [facility] Work Phone: WBC (Bld) [#/Vol] 6.1 10*3/uL 4.4-11.0 [facility] Work Phone: Blood erythrocytes count (nu mber/volume)on 11-10-2021 RBC (Bld) [#/Vol] 4.46 10*6/uL 4.2-5.4 [facility] Work Phone: Blood hemoglobin measurement (mass/volume)on 11-10-2021 Hemoglobin (Bld) [Mass/Vol] 11.8 g/dL 12.0-15.0 [facility] Work Phone: Blood lymphocytes/100 leukoc yteson 11-10-2021 Lymphocytes/100 WBC (Bld) 26.3 % 19-41 [facility] Work Phone: Blood monocytes/100 leukocyt eson 11-10-2021 Monocytes/100 WBC (Bld) 9.1 % 0-10 [facility] Work Phone: Blood platelet mean volumeon 11-10-2021 Platelet mean volume (Bld) [Entitic vol] 9.2 fL 6.2-12.0 [facility] Work Phone: Determination of erythrocyte mean corpuscular volume (MCV)on 11-10-2021 MCV (RBC) [Entitic vol] 83.9 fL 81-99 [facility] Work Phone: Hematocrit Auto (Bld) [Volum e fraction]on 11-10-2021 Hematocrit (Bld) [Volume fraction] 37.4 % 37-47 [facility] Work Phone: Laboratory - Chemistry and C hemistry - challengeon 11-10-2021 Magnesium [Mass/Vol] 1.7 mg/dL 1.6-2.6 [facility] Work Phone: CO2 [Moles/Vol] 30.0 mmol/L 21.0-32.0 [facility] Work Phone: Urea nitrogen/Creatinine [Mass ratio] 14.9 mg/mg 10-20 [facility] Work Phone: Laboratory - Hematology and Cell countson 11-10-2021 Erythrocyte distribution width (RBC) [Entitic vol] 50.7 fL 35.1-43.9 [facility] Work Phone: Erythrocyte distribution width (RBC) [Ratio] 16.8 % 11.6-14.6 [facility] Work Phone: Immature granulocytes/100 WBC (Bld) 0.500 % 0.0-0.9 [facility] Work Phone: Comment on above: IG% - Immature Granu locytes (promyelocytes, myelocytes and metamyelocytes) > 1% indicates that a LEFT SHIFT is Present. MCH (RBC) [Entitic mass] 26.5 pg 27.0-32.0 [facility] Work Phone: Nucleated RBC/100 WBC (Bld) [Ratio] 0 % 0-5 [facility] Work Phone: MCHC Auto (RBC) [Mass/Vol]on 11-10-2021 MCHC (RBC) [Mass/Vol] 31.6 g/dL 32-36 [facility] Work Phone: No Panel Informationon 11-10 Thyroid Stimulating Hormone (TSH) 3.14 uIU/mL 0.358-3.74 [facility] Work Phone: Estimated GFR (MDRD) Amer 71 mL/min >60 [facility] Work Phone: Comment on above: GFR Calc Estimated GFR (MDRD) Non-Af Amer 59 mL/min >60 [facility] Work Phone: Comment on above: Non- GFR Calc Nasal Screen MRSA/MSSA [facility] Work Phone: Platelets bldon 11-10-2021 Platelets (Bld) [#/Vol] 261 10*3/uL 150-450 [facility] Work Phone: Serum or plasma albumin dread urement (mass/volume)on 11-10-2021 Albumin [Mass/Vol] 3.4 g/dL 3.2-5.0 [facility] Work Phone: Serum or plasma calcium dread urement (mass/volume)on 11-10-2021 Calcium [Mass/Vol] 9.1 mg/dL 8.5-10.1 [facility] [facility] Work Phone: Serum or plasma creatinine m easurement (mass/volume)on 11-10-2021 Creatinine [Mass/Vol] 1.01 mg/dL 0.55-1.02 [facility] Work Phone: Comment on above: The validity of the calculated GFR & GFRAA in patients over 70 years has not been determined. Clinical correlation is essential. Serum or plasma urea nitroge n measurement (mass/volume)on 11-10-2021 Urea nitrogen [Mass/Vol] 15 mg/dL 7-18 [facility] Work Phone: Thin prep Papanicolaou smear with manual screeningon 11-10-2021 Thin prep Papanicolaou smear with manual screening 6 5-15 [facility] Work Phone: Whole blood hemoglobin A1c/t otal hemoglobin ratio (mass fraction)on 11-10-2021 HbA1c (Bld) [Mass fraction] 8.0 % 3.8-5.6 [facility] Work Phone: Comment on above: Normal < 5.7 % Predi abetic 5.7 - 6.4 % Diabetic >or= 6.5 % Please note range changes. Glucose Glucometer (BldC) [M ass/Vol]on 09-25-2021 Glucose [Mass/Vol] 136 mg/dL 70-110 [facility] Work Phone: Comment on above: MANAGEMENT OF PATIEN T CARE PER NURSING PROTOCOL Basophil percentageon 2020 WBC (Bld) [#/Vol] 7.1 10*3/uL 4.4-11.0 [facility] Work Phone: Blood erythrocytes count (nu mber/volume)on 08-07-2021 RBC (Bld) [#/Vol] 4.56 10*6/uL 4.2-5.4 [facility] Work Phone: Blood hemoglobin measurement (mass/volume)on 08-07-2021 Hemoglobin (Bld) [Mass/Vol] 12.0 g/dL 12.0-15.0 [facility] Work Phone: Blood platelet mean volumeon 08-07-2021 Platelet mean volume (Bld) [Entitic vol] 9.9 fL 6.2-12.0 [facility] Work Phone: Determination of erythrocyte mean corpuscular volume (MCV)on 08-07-2021 MCV (RBC) [Entitic vol] 86.8 fL 81-99 [facility] Work Phone: Hematocrit Auto (Bld) [Volum e fraction]on 08-07-2021 Hematocrit (Bld) [Volume fraction] 39.6 % 37-47 [facility] Work Phone: Laboratory - Hematology and Cell countson 08-07-2021 Erythrocyte distribution width (RBC) [Entitic vol] 47.4 fL 35.1-43.9 [facility] Work Phone: Erythrocyte distribution width (RBC) [Ratio] 15.2 % 11.6-14.6 [facility] Work Phone: MCH (RBC) [Entitic mass] 26.3 pg 27.0-32.0 [facility] Work Phone: MCHC Auto (RBC) [Mass/Vol]on 08-07-2021 MCHC (RBC) [Mass/Vol] 30.3 g/dL 32-36 [facility] Work Phone: Platelets bldon 08-07-2021 Platelets (Bld) [#/Vol] 291 10*3/uL 150-450 [facility] Work Phone: Provider Note - ED v3on 04-30 Provider Note - ED v3 Provider Note: Chart Review: ED NOTES ED NOTES: ====HPI==== Patient is a 61-year-old female who presents to the emergency department with a chief complaint of a area of redness and warmth to her left calf. She states that this area showed up this morning. She denies any injury. She does have some pain but also has a diabetic. She is not sure if this is a reaction to Neurontin as she has had a reaction in the past. She denies any fever or chills. No chest pain or shortness of breath. 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 She is not currently anticoagulated. PMHX: Diabetes, HTN, chronic lower back pain Social HX: Denies TOBACCO Denies ETOH Denies DRUGS ====Review of Systems==== 10 point system review is negative except for those specifically mentioned in history of present illness ====Physical Exam==== Constitutional/General: Alert and oriented x3, well appearing, nontoxic, and in NAD. Head: Normocephalic and atraumatic. Eyes: EOMI, conjunctive normal, sclera nonicteric, subconjunctival layer is pink.. Respiratory: Lungs clear to auscultation bilaterally, no wheezes, rales, or rhonchi, not in respiratory distress. Cardiovascular: Regular rate, regular rhythm, no murmurs, gallops, or rubs, 2+ distal pulses. Chest: normal chest wall movement Musculoskeletal: There is an area of erythema noted to the left posterior calf. No area of induration or fluctuance. There are some tenderness to this area along with warmth. Distal pulses are strong. There is no abrasions or lacerations noted to the feet. Moves all extremities x4, warm and well perfused, no clubbing, cyanosis, or edema, cap refill <3 seconds Integument: Skin warm and dry, no rashes. Lymphatic: No lymphadenopathy noted. Neurologic: No focal deficits Psychiatric: Normal affect. ====ED Course and Medical Decision Making==== See MDM section for review of findings & plan of care. Portions of this note were dictated by speech recognition. An attempt at proof reading was made to minimize errors. Minor errors in concrete products dispatcher may be present. Please call if questions.. HISTORY OF PRESENTING ILLNESS FLEX is a 61 year old Female and was seen by me at 21-May-2021 21:52 for a chief complaint of lower leg pain/injury (pt here with c/o red area to left calf, area showed up this am. pt reports recently starting back on neurontin which she has had a reaction to in the past. area is not swollen more than normal per pt. report got flu shot and shingles vaccines on tuesday) . Triage Information: Most recent Vital Sign Value Date Temp (F): 97.3 05-21-2021 20:35 Temp (C): 36.2 05-21-2021 20:35 Heart Rate (beats/min): 75 05-21-2021 20:35 Respirations (breaths/min): 18 05-21-2021 20:35 SpO2 (%): 94 05-21-2021 20:35 BP Systolic (mm Hg): 142 05-21-2021 20:35 BP Diastolic (mm Hg): 62 05-21-2021 20:35 PAST MEDICAL HISTORY ALLERGIES/INTOLERANCES: Allergy Allergen: Neurontin Type: Drug Reaction: Hives/Urticaria HEALTH HISTORY: No documented data. OUTPATIENT MEDICATIONS: Home Medications Review Status for Reconciliation: Incomplete Med Status: Incomplete Medication History No documented data. SIGNIFICANT EVENTS: Immunizations Description:pfizer covid vaccine Description:flu shot 21 Description:shingles vaccine 21 Past Medical History Description:diabetes Description:HTN Description:chronic lower back pain/surgery MDM MDM/ED COURSE: Patient is a 61-year-old female who presents to the emergency department with a chief complaint of erythema to her left calf. On exam there is some mild erythema with warmth and tenderness. I do believe that this is likely cellulitis. She is afebrile and nontoxic-appearing. Do not feel that laboratory studies are indicated based on exam at this time. She will be placed on oral antibiotics. Patient does have a history of DVTs and we do not have venous duplex available at this hour. We will schedule her tomorrow morning for a venous duplex. In the meantime we will place her on Xarelto as she has a history of DVTs and PEs. She denies any chest pain or shortness of breath. DISPOSITION Diagnosis/Annotation: ED Dx Name:Cellulitis of lower leg Code:L03.119 Disposition: discharged Type: home CONSULT CRITICAL CARE TIME Is this a critically ill patient: no Electronic Signatures: Silvana Henderson (DIMPLE) (Signed 21-May-2021 22:32) Authored: ED Notes, HPI, PMH, MDM/ED Course, Clinical Impression, Attestation, Chart Review, Scores Last Updated: 21-May-2021 22:32 by Silvana Henderson (PAC) References: 1. Data Referenced From Triage - ED 21-May-2021 20:35 Normal [facility] VAS LAB Venous Duplex Ultra sound DVTon 05-22-2021 [facility] Venous [place] [address] [phone], Vascular Lab Report Lower Venous Duplex Ultrasound Patient Name: FLEX WOOTEN Reading Physician: [id number] Hector Vegas MD Study Date: 05/22/2021 Referring Physician: [id number] SILVANA HENDERSON MRN/PID: [id number] PCP: Accession/Order#: [id number] Report to: Date of : 1960 Technologist: Gladis Campbell RVT Gender: F Technologist 2: Admission Status: Outpatient Location Performed: [facility] Diagnosis/ICD: M79.605-Pain in left leg; M79.89-Left leg swelling Procedure/CPT: 03761 Peripheral venous duplex scan for DVT Limited-[id number] Pertinent History: Leg pain and LE Edema. CONCLUSIONS: Right Lower Venous: Right common femoral vein is negative for deep vein thrombus. Left Lower Venous: No evidence of acute deep vein thrombus visualized in the left lower extremity. Imaging AND Doppler Findings: Right Compressible Thrombus Flow CFV Yes None Spontaneous/Phasic Left Compress Thrombus Flow Iliac Yes None Spontaneous/Phasic CFV Yes None Spontaneous/Phasic PFV Yes None FV Proximal Yes None Spontaneous/Phasic FV Mid Yes None FV Distal Yes None Popliteal Yes None Spontaneous/Phasic Peroneal Yes None PTV Yes None [id number] Hcetor Vegas MD Final Normal [facility] Triage - EDon 05-21-2021 Triage - ED Quick Triage: The patient and/or guardian verbally acknowledges placement for services into the following (when Urgent Care Service hours are operating):emergency department Chart Review: ARRIVAL INFORMATION Mode of Arrival: private vehicle CHIEF COMPLAINT FLEX WOOTEN is a Female patient with a chief complaint of lower leg pain/injury (pt here with c/o red area to left calf, area showed up this am. pt reports recently starting back on neurontin which she has had a reaction to in the past. area is not swollen more than normal per pt. report got flu shot and shingles vaccines on tuesday). Triage Date/Time: 21-May-2021 20:35 ROSALBA: 3 Pain Rating (0-10): 3 = Mild Vital Signs: Temperature: 97.3F ( 36.2C) taken oral Blood Pressure: 142/62 Mean: Heart Rate: 75 Respiratory Rate: 18 Pulse Oximetry: 94% on room air, no respiratory support. Height: 5 feet 4.00 inches. 162.5 CM Weight: 240.9 pounds. Calculated 109.3 kg. (stated) Calculated BMI (kg/m2): 41.391 Calculated BSA (m2) 2.22 Dolly Coma Scale: Best Eye Response: (E4) spontaneous Best Motor Response: (M6) obeys commands Best Verbal Response: (V5) oriented Dolly Score: 15 Allergies: yes Patient has homicidal thoughts: no Risk Screens Suicide Risk Screen In the Past Month: Have you wished you were or wished you could go to sleep and not wake up no In the Past Month: Have you had any actual thoughts of killing yourself no In Your Lifetime: Have you ever done anything, started to do anything, or prepared to do anything to end your life no Blanco Fall Scale Screening Has the patient fallen before (or is the patient in the ED as a result of a fall) has not had a fall Does the patient have an impaired gait does not have impaired gait Is the patient cognitively impaired not cognitively impaired Interventions: Blanco Fall Interventions: MODERATE INTERVENTIONS: *Low Interventions Plus: * falls risk band/sticker applied to patient, *yellow non-skid footwear, *instruct to call for assistance before getting out of bed, *bed/chair/bedside commode/toilet alarms, *sensory devices/ambulatory aides available and in reach, *medications reviewed for potential side effects and care planning. TRAVEL HISTORY Travel History Coronavirus Screening: no exposure or symptoms Travel Exposure History: NO travel to International locations in the past 30 days PAIN Pain Scale Used: SEVEN Pain Rating (0-10): 3 = Mild Past Medical History: Past Medical History Reviewedyes chronic lower back pain/surgery: Past Medical History, Active HTN: Past Medical History, Active shingles vaccine 21: Immunizations, Active flu shot 21: Immunizations, Active pfizer covid vaccine: Immunizations, Active Electronic Signatures: Demetrio Cerda (SAM) (Signed 21-May-2021 20:40) Entered: Risk Screens, Pain, Travel History, Chart Review, Scores, Past Medical History Authored: Quick Triage, Risk Screens, Pain, Travel History, Chart Review, Scores, Past Medical History Last Updated: 21-May-2021 20:40 by Demetrio Cerda (SAM) Normal [facility] BASIC METABOLIC PANELon - Anion gap [Moles/Vol] 13 mmol/L Normal 10 - 20 [facility] Comment on above: Performed By: #### B MP #### [facility] [address] [place] [address] Calcium [Mass/Vol] 9.4 mg/dL Normal 8.6 - 10.3 [facility] Comment on above: Performed By: #### B MP #### [address] [address] Chloride [Moles/Vol] 96 mmol/L Low 98 - 107 [facility] Comment on above: Performed By: #### B MP #### [address] [address] Creatinine [Mass/Vol] 0.92 mg/dL Normal 0.50 - 1.05 [facility] Comment on above: Performed By: #### B MP #### [address] [address] GFR- AM. >60 Normal >60 [facility] Comment on above: Result Comment: CALC ULATIONS OF ESTIMATED GFR ARE PERFORMED USING THE MDRD STUDY EQUATION FOR THE IDMS-TRACEABLE CREATININE METHODS. CLIN CHEM 2007;53:766-72 Performed By: #### B MP #### [address] [address] GFR-NON AM. >60 Normal >60 [facility] Comment on above: Performed By: #### B MP #### [address] [address] Glucose [Mass/Vol] 342 mg/dL High 74 - 99 [facility] Comment on above: Performed By: #### B MP #### [address] [address] HCO3 (Bld) [Moles/Vol] 28 mmol/L Normal 21 - 32 [facility] Comment on above: Performed By: #### B MP #### [address] [address] Potassium [Moles/Vol] 4.8 mmol/L Normal 3.5 - 5.3 [facility] Comment on above: Performed By: #### B MP #### [address] [address] Sodium [Moles/Vol] 132 mmol/L Low 136 - 145 [facility] Comment on above: Performed By: #### B MP #### [address] [address] Urea nitrogen [Mass/Vol] 18 mg/dL Normal 6 - 23 [facility] Comment on above: Performed By: #### B MP #### [address] [place] [address] GLUCOSE-POCTon 02-13-2021 Glucose [Mass/Vol] 332 mg/dL High 74 - 99 [facility] Comment on above: Performed By: #### G TAYE #### [address] [place] [address] Provider Note - ED v2on 01-27 Provider Note - ED v2 Provider Note - ED v2: Chart Review: ED NOTES ED NOTES: HPI: 60-year-old female history of type 2 diabetes presents with a concern about hyperglycemia. She did have a steroid injection in her right knee around 2:00 today. Checked her blood sugar around 6 PM and it was well over 400. States it is been up and down quite a bit the last 4 to 5 days. No urinary symptoms. No shortness of breath. Currently camping at a local campground. No headache double vision or blurry vision. No chest pain or shortness of breath. No abdominal pain. No change in bowel bladder habits. No neurologic complaints. ROS: All systems are negative other than as noted in HPI. Physical Exam I have reviewed the triage vital signs. Const: Well nourished, well developed, appears stated age, no acute distress Eyes: PERRL, EOM intact, no conjunctival injection, vision grossly normal HENT: Neck supple without meningismus , Moist mucous membranes, no pharyengeal swelling or exudate CV: Regular rate and rhythm, Warm, well-perfused extremities. Chest non tender RESP: Lungs clear bilaterally, Unlabored respiratory effort GI: soft, non-tender, non-distended, no masses : MSK: No gross deformities appreciated Skin: Warm, dry. No rashes Neuro: Alert and oriented x4, GCS 15 , virtualization engineer II-XII grossly intact. Sensation and motor function of extremities grossly intact. Psych: Appropriate mood and affect. HISTORY OF PRESENTING ILLNESS FLEX is a 60 year old Female and was seen by me at 12-Feb-2021 23:52 for a chief complaint of hyperglycemia (Patient states, My sugar has been up the past 4-5 days. It's so high my meter wont register. I had a steroid shot today around 2pm. 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 BS at 6pm: 399, 7:30pm: HI, 8:30PM: HI, 9:15pm: 492, 1010pm: 409. In triage: 332) . Triage Information: Most recent Vital Sign Value Date Temp (F): 97.3 02-13-2021 00:01 Temp (C): 36.2 02-13-2021 00:01 Heart Rate (beats/min): 64 02-13-2021 00:01 Respirations (breaths/min): 18 02-13-2021 00:01 SpO2 (%): 95 02-13-2021 00:01 BP Systolic (mm Hg): 125 02-13-2021 00:01 BP Diastolic (mm Hg): 76 02-13-2021 00:01 PAST MEDICAL HISTORY ATTESTATION: I have reviewed and confirmed nurse's/medic's notes for patient's medications, allergies, and medical, surgical, family and social history ALLERGIES/INTOLERANCES: Allergy Allergen: Neurontin Type: Drug Reaction: Hives/Urticaria HEALTH HISTORY: No documented data. OUTPATIENT MEDICATIONS: Home Medications Review Status for Reconciliation: N/A Med Status: N/A No documented data. SIGNIFICANT EVENTS: Past Medical History Description:diabetes RESULTS/VITAL SIGNS RESULTS: Recent Lab Results: I have reviewed these laboratory results: Basic Metabolic Panel 13-Feb-2021 01:32:00 ResultValue Glucose, Serum 342 H NA 132 L K 4.8 CL 96 L Bicarbonate, Serum 28 Anion Gap, Serum 13 BUN 18 CREAT 0.92 GFR-Non >60 GFR- >60 Calcium, Serum 9.4 Glucose_POCT 12-Feb-2021 23:53:00 ResultValue Glucose-POCT 332 H VITAL SIGNS: T PRBP SpO2O2(LPM) %FiO2 Method 13-Feb-2021 03:12:[id number] 92 room air, no respiratory support 13-Feb-2021 01:16:[id number]/59 92 room air, no respiratory support 13-Feb-2021 00:01:[id number]/76 95 room air, no respiratory support MEDICAL DECISION MAKING/ED COURSE MDM/ED COURSE: Vital signs stable. Blood sugar improved. Patient is ready for discharge after subcu insulin and IV fluids. CLINICAL IMPRESSION Diagnosis/Annotation: ED Dx Name:Hyperglycemia Code:R73.9 Disposition: discharged Type: home ATTESTATION CRITICAL CARE TIME Is this a critically ill patient: no Electronic Signatures: Jesus Amezquita) (Signed 13-Feb-2021 03:17) Authored: ED Notes, HPI, PMH, PE, Results/Vital Signs, MDM/ED Course, Clinical Impression, Attestation, Chart Review, Scores Last Updated: 13-Feb-2021 03:17 by Jesus Amezquita) References: 1. Data Referenced From Triage - ED 13-Feb-2021 00:01 [facility] Risk Screen - Adult Emergenc yon 02-13-2021 Risk Screen - Adult Emergency Preferred Language: Preferred Language: Preferred Language for Discussing Health Care (patient/designee)Jade lovett Advanced Directives: Advance Directive/DNRno Family Violence Adult: Abuse Screen: Are you or have you been threatened or abused physically, emotionally, or sexually by anyoneno Learning Assessment (Patient): Learning Assessment (Patient): Patient is Able to be Assessed for Learningyes Factors Influencing Readiness to Learnacuteness of illness Factors that Impact Ability to Learncognitive limitations Devices/Methods Used to Communicatenone Learning Preferencesverbal instruction; written material Cultural Considerationsnone Developmental Considerationsnone Faith Considerationsnone Learning Assessment (Other Learner): Learning Assessment (Other Learner): Other learner availableno Pressure Injury/TB/Substance: Pressure Injury: Do you have a coughno Substance Use Current or Former Historynever: Cigarette/Tobacco, e-Cigarette/Vaping, Alcohol, Street Drugs Admission Risk Screen: Significant IndicatorsComplete CAGE: CAGE: Is this an injured patient at a Trauma Center [place] [place]): no Electronic Signatures: Tigist Yoder) (Signed 13-Feb-2021 00:07) Authored: Preferred Language, Advanced Directives, Family Violence Adult, Learning Assessment (Patient), Learning Assessment (Other Learner), Pressure Injury/TB/Substance, Pressure Injury, CAGE Last Updated: 13-Feb-2021 00:07 by Tigist Yoder) [facility] Triage - EDon 02-13-2021 Triage - ED Chart Review: ARRIVAL INFORMATION Mode of Arrival: private vehicle CHIEF COMPLAINT FLEX TABARES is a Female patient with a chief complaint of hyperglycemia (Patient states, My sugar has been up the past 4-5 days. It's so high my meter wont register. I had a steroid shot today around 2pm. 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 BS at 6pm: 399, 7:30pm: HI, 8:30PM: HI, 9:15pm: 492, 1010pm: 409. In triage: 332). Triage Date/Time: 13-Feb-2021 00:01 ROSALBA: 3V Vital Signs: Temperature: 97.3F ( 36.2C) taken oral Blood Pressure: 125/76 Mean: Heart Rate: 64 Respiratory Rate: 18 Pulse Oximetry: 95% on room air, no respiratory support. Perry Coma Scale: Best Eye Response: (E4) spontaneous Best Motor Response: (M6) obeys commands Best Verbal Response: (V5) oriented Dolly Score: 15 Allergies: yes Patient has homicidal thoughts: no Symptoms Are Negative For: blurred vision, chills, confusion, dehydration, diaphoresis, headache, loss of consciousness, nausea and weakness. Risk Screens Suicide Risk Screen In the Past Month: Have you wished you were or wished you could go to sleep and not wake up no In the Past Month: Have you had any actual thoughts of killing yourself no In Your Lifetime: Have you ever done anything, started to do anything, or prepared to do anything to end your life no Blanco Fall Scale Screening Has the patient fallen before (or is the patient in the ED as a result of a fall) has not had a fall Does the patient have an impaired gait does not have impaired gait Is the patient cognitively impaired not cognitively impaired Interventions: Blanco Fall Interventions: LOW INTERVENTIONS: *patient oriented to surroundings and call system, * patient/family falls education completed and documented, *patients fall status communicated during bedside handoff, *whiteboard updated, *mode of toileting discussed with patient, *bed in low position with brakes locked, *call light in reach, * non-skid footwear TRAVEL HISTORY Travel History Coronavirus Screening: no exposure or symptoms Travel Exposure History: NO travel to International locations in the past 30 days PAIN Pain Scale Used: SEVEN Past Medical History: Past Medical History Reviewedyes diabetes: Past Medical History, Active Electronic Signatures: Tigist Yoder (RN) (Signed 13-Feb-2021 00:06) Entered: Risk Screens, Pain, Travel History, Chart Review, Scores, Past Medical History Authored: Quick Triage, Risk Screens, Pain, Travel History, Chart Review, Scores, Past Medical History Last Updated: 13-Feb-2021 00:06 by Tigist Yoder (SAM) [facility] OPERATIVE PROCEDURESon 02-10 OPERATIVE PROCEDURES [facility] OPERATIVE REPORT NAME ACCOUNT SEX AGE ADMIT DISCHARGE PT MED. RECORD# NUMBER DATE DATE TYPE FLEX WOOTEN [id number] F 59 02/08/20 02/08/20 2 Daphney [id number] ROOM: [facility] DATE OF : 1960 DICTATING PHYSICIAN: Pb Drummond DATE OF SURGERY: February 08, 2020 SURGEON: Pb Drummond MD ENVELOPE MACHINE ADJUSTER: None. ANESTHESIOLOGIST: Daphney Velasquez MD ANESTHETIC: Local with MAC. PREOPERATIVE DIAGNOSIS: Right carpal tunnel syndrome and right DeQuervain's tendinitis. POSTOPERATIVE DIAGNOSIS: Right carpal tunnel syndrome and right DeQuervain's tendinitis. OPERATION PERFORMED: Right open carpal tunnel release and open DeQuervain's tendinitis release. COMPLICATIONS: None. ESTIMATED BLOOD LOSS: Minimal. INDICATIONS FOR SURGERY: The patient is a 59-year-old female with a history of right hand pain, numbness and tingling. She has a history of DeQuervain's tendinitis with pain. She failed conservative measures. She wished to have surgery. Appropriate informed consent was obtained and signed. The risks of COVID had been explained, and she wished to proceed. FINDINGS: The patient had stenosis of the carpal canal and stenosis of the first dorsal wrist extensor compartment. She underwent open release. DESCRIPTION OF OPERATION: The patient was taken to the operating room and transferred to the OR table. Appropriate time-out was performed. She was placed supine. Head was controlled by Anesthesia. She was given sedation. She underwent a local anesthetic at the right carpal tunnel and the right radial side of the wrist with a total Page 1 of 2 FLEX WOOTEN Operative Report FLEX WOOTEN : 1960 of 9 mL of 2% lidocaine plain. She tolerated that well. This was done under standard sterile technique. A tourniquet was applied to the right upper arm. The right upper extremity was prepped, padded and draped in the usual orthopedic sterile fashion for the procedure. We mapped out our 3 cm incision over the palm. We mapped out a short incision over the radial aspect of the wrist. The limb was exsanguinated. The tourniquet was applied to 250 mmHg. We started with the carpal canal release. A 3 cm incision was made through skin and subcutaneous tissue. Bleeding was controlled with the Bovie. We came down to the transverse carpal ligament. We opened the transverse carpal ligament with the knife. I placed an elevator distally. I dissected down on that with the knife. I then placed the elevator proximally and dissected down on that with the knife. At the proximal extent, scissors were placed under direct visualization and released the proximal part of the transverse carpal ligament. At this point, my small finger could be placed proximally and distally. There was no longer any undue tension on the contents of the carpal canal. Contents of the carpal canal were gently visualized and probed. The FPL tendon was noted. No abnormalities were otherwise noted. The wound was thoroughly irrigated. A sterile bandage was applied there. We went to the radial side of the wrist and performed a transverse incision about 1 cm above the radial styloid through skin and subcutaneous tissue. Careful dissection brought us down to the first dorsal wrist extensor compartment, and that was opened with a knife and scissors from proximal to distal, adequately releasing the APL and the EPB tendon. Each tendon was lifted to confirm its function and its identity. We confirmed that there were no other slips of the tendons that were not released. The wound was thoroughly irrigated. The tourniquet was let down. Bleeding was controlled with the Bovie. Each incision was repaired with 4-0 or 5-0 nylon in a vertical mattress and simple suture fashion. A sterile bandage was applied. She was awoken from her anesthetic and transferred back to her own bed in the recovery room in satisfactory condition. We plan to discharge her home today. Stitches out in 2 weeks. Dictated By: Pb Drummond MD 02/08/20 13:43 JOB #: [id number] Transcribed By: yogesh 02/09/20 07:13 Electronically signed by: E-SIGN DR. PB DRUMMOND M.D. 02/11/20 09:08 Page 2 of 2 FLEX WOOTEN. Operative Report Normal [facility] CNOVon 05-09-2019 CNOV Office Visit (RHBATH ) JEFLEX Hylton ([id number]) 1960 F Date Time Provider Department 05/09/19 10:00 AM JACKIE ROJAS [facility] During your visit today, we recorded the following information about you: Pulse Blood pressure Height 94/minute 120/82 1.626 m Jackie Rojas MD 05/09/2019 2:44 PM Signed RHEUMATOLOGY PROGRESS NOTE Patient is here for a follow up visit for Patient presents with: Results: discuss testing from 04/09/2019. HPI: Flex Wooten is a 58 year old female who presents joint pain. She is here to discuss lab results. No new symptoms. Brief Rheumatological history - Flex Wooten is a 58 year old female who presents with arthralgias. Referral for athralgia. Concern for RA, sjorgrens, mixed connective tissue disorder, lupus. Pain in hands, shoulders, hips, knees, ankles. Feels stiff in AM for less than an hour. Notices swelling in foot, hands, fingers, knees. Joint pains and swelling have been getting worse over time. No alleviating factors, pain meds aren't working with pump. No ibuprofen or tylenol. Pain can be worse at rest or with activity. Sweats profusely, constant dry eyes, dry mouth (OTC eye drops), and hydrating but still thirsty. 25 years ago had a salivary bx that was negative for sjogrens by Dr. Bowles by ENT. Back surgery in 1998. L3-4-5-S1 fusion and pain pump since 2004- see's pain management for [address] Musa at [facility]. Takes oxycodone 2 times daily. Left knee replacement in 2013. Gets injections in lower back, SI, neck and around fusions, and receives them through pain management. H/o anxiety/depression- takes wellbutrin and trazadone, h/o of hypothyroid- takes medications, DM2- takes metformin, HTN- takes medication. History of fibromyalgia. ? ? Family history of autoimmune disease: unknown, patient was adopted, maybe arthritis Smoking status: Tobacco Use: Quit 03/21/1994. ? ? Interval Review of Systems CONSTITUTIONAL: Recent Weight change: No Fever: No EYES: Dryness in nose: No Dryness of mouth: No Oral ulcers: No CARDIOVASCULAR: Pain in chest: No RESPIRATORY: Shortness of breath: No Cough: No GASTROINTESTINAL: Nausea: No Vomiting: No Changes in bowel movements: No Jaundice: No Heartburn: No MUSCULOSKELETAL: Per HPI INTEGUMENTARY: Rash: No HEMATOLOGIC/LYMPHATIC: Anemia: No NEUROLOGICAL SYSTEM: Headaches: No Sensitivity or pain of hands and/or feet: No PSYCHIATRIC: Anxiety: YES Poor sleep: YES PAST MEDICAL HISTORY Diagnosis Date - DVT (deep venous thrombosis) ([facility] 2014 post knee replacement - Fibromyalgia - Hemorrhage of gastrointestinal tract, unspecified - Hemorrhage of rectum and anus - Internal hemorrhoids without mention of complication - Other forms of migraine - Other unspecified back disorder - Pulmonary embolism (HCC) 2013 PAST SURGICAL HISTORY Procedure Laterality Date - COLONOSCOP W/ OR W/O [facility] SPEC 2002 Colonoscopy - INTRATHECAL BLOCK - PAST SURGICAL HISTORY OF 2004; updated 2008 calibration constant ( pain pump) inserted into right side of abdomen - PAST SURGICAL HISTORY OF 2005 [facility] FASCITIS - PAST SURGICAL HISTORY OF 1998 fusion -- lumbar -- Dr. Melendez - PAST SURGICAL HISTORY OF 2000 SI joint fusion -- Kody George - PAST SURGICAL HISTORY OF 2009 left knee -- meniscus repair; [facility] - REMOVAL OF OVARY(S) - REMOVE TONSILS/ADENOIDS,<12 Y/O - SIGMOIDOSCOPY FLEX DIAG 02/26/09 - SPINAL FUSION,ANT,EA ADNL LEVEL - TOTAL ABDOM HYSTERECTOMY - TOTAL KNEE REPLACEMENT 2013 left History Review: I have reviewed and modified as needed, the following during this visit: Allergies, Past Medical History, Past Surgical History, Past Family History, Past Social History. BP 120/82 Pulse 94 Ht 162.6 cm (5' 4) SpO2 98% BMI 40.51 kg/m? Physical Exam GENERAL: Well appearing, alert, comfortable, in no acute distress, well-hydrated, well nourished. HEENT: Negative for external ears normal. Canals are clear. Both TMs visualized and are normal. Eye Exam normal. External nose normal, no nasal ulcer or throat ulcer. NECK: NECK Supple, no adenopathy; thyroid symmetric, normal size, no bruits CARDIAC: regular rate and rhythm, No murmur asculated. and Equal peripheral pulses RESPIRATORY: Lungs clear to auscultation. No wheezing, rhonchi, rales VASCULAR: RRR without murmur, gallop, or rubs. No ectopy. NEURO: Motor and sensory exam normal MOTOR: Normal; including tone, gait, stressed gait, power and coordination. SKIN: Negative for alopecia, skin rash, malar rash, skin lesion, skin ulcer, pits, thickening, color changes, telangiectasias, nail changes, nail ridging, nail pitting, onycholysis MUSCULOSKELETAL: DIPS: Abnormal, Heberden's nodes PIPS: Abnormal, Teresa's nodes MCPs: Normal Wrists: Normal Elbows: Normal Shoulders: Abnormal, Left shoulder pain with internal rotation C-Spine: Normal Hips: Abnormal, Tender SI joints Knees: Abnormal, Left knee pain, history of knee replacement Ankles: Abnormal, Left ankle pain MTPs / Toes: Normal Arches: Abnormal, Flat feet Lab Results: Glucose 124 04/09/2019 ALT 43 04/09/2019 WBC 6.94 04/09/2019 Hemoglobin 12.5 04/09/2019 Platelet Count 204 04/09/2019 Serology: AJ 1:160, CK 272 Negative aside DNA, [employer] SAF[employer] PROGRAM COORDINATOR, SSA, SSB, rheumatoid factor, CCP, Acevedo Low ferritin Radiology: IMPRESSION: Postoperative changes. ?Mild degenerative arthritis at the first MTP joints. IMPRESSION: Scoliosis, degenerative spondylosis, and postoperative changes. IMPRESSION: Postoperative and degenerative changes at the right sacroiliac joint. Assessment and Plan (R76.8) AJ positive (primary encounter diagnosis) (R53.81, R53.83) Malaise and fatigue (M25.50) Pain in joint, multiple sites 58-year-old female is here for follow up for joint pain. Patient has history of osteoarthritis involving multiple joints, back surgeries and follows pain management regularly. She also reports chronic dryness which could be related to her medications as well. She also has history of hypothyroidism which could lead to positive serologies sometimes. ? Patient does not have typical clinical features of an autoimmune disease like synovitis, typical rash (malar/discoid/gottron' s/heliotrope), objective muscle weakness, uveitis/scleritis, oral/nasal/genital ulcers, scarring alopecia, h/o organ involvement (nephritis, myopericarditis, hematological abnormalities, neuropathies, cerebritis etc) to suggest the presence of an underlying autoimmune disease. ? Comprehensive rheumatological workup was negative. Positive AJ as expected in patients with thyroid disease. It can seen in healthy people as well. No signs or symptoms or other serologies to support a diagnosis of lupus. ? No orders found for this visit on 05/09/19. No orders of the defined types were placed in this encounter. Return if symptoms worsen or fail to improve. Jackie Rojas MD Referring Provider: JACKIE ROJAS [[id number]] Allergies As of Date: 05/09/2019 Noted Allergy Reaction NEURONTIN (GABAPENTIN) 07/14/2005 1 - Mental Status Change NIACIN 11/24/2006 2 - Rash 4 - Hives 9 - Itching Date Reviewed: 05/09/2019 Reviewed by: Jackie Rojas - Fully Assessed Reason for Visit: Results [95] Cmt: discuss testing from 04/09/2019. Primary Visit Diagnosis:AJ positive [R76.8] Other Visit Diagnoses:Malaise and fatigue [R53.81, R53.83] Pain in joint, multiple sites [M25.50] Prescriptions as of 05/09/2019 Sig: ATENOLOL 25 MG TABLET Take 25 mg by mouth once hao* LEVOTHYROXINE 50 MCG TABLET 50 mcg. SYNTHROID 50 MCG TABLET METFORMIN ER 500 MG 24 HR TAB* Take 500 mg by mouth daily wi* SIMVASTATIN 20 MG TABLET Take 20 mg by mouth daily at * MELOXICAM 7.5 MG TABLET Take 7.5 mg by mouth once riya* BUPROPION HCL ORAL Take 1,500 mg by mouth once d* OXYCODONE-ACETAMINOPHEN 5 MG-* Take 1 tablet by mouth once d* ASPIRIN 81 MG TABLET,DELAYED * Take 81 mg by mouth once aho* TIZANIDINE 4 MG TABLET Take 4 mg by mouth once daily. FOLIC ACID 1 MG TABLET Take 400 mg by mouth once riya* MAGNESIUM 250 MG TABLET Take 250 mg by mouth once riya* VITAMIN B COMPLEX ORAL Take by mouth. VITAMIN D2 ORAL Take by mouth. PROBIOTIC ORAL Take by mouth. MULTIVITAMIN ORAL Take by mouth. LISINOPRIL 20 MG-HYDROCHLOROT* Take 1 tablet by mouth once d* HYDROXYZINE HCL 50 MG TABLET Take 50 mg by mouth twice riya* OMEPRAZOLE 40 MG CAPSULE,DANIEL* Take 40 mg by mouth once hao* TRAZODONE 100 MG TABLET Take 1 tablet by mouth daily * LORAZEPAM 1 MG TABLET Take 1 tablet by mouth twice * COMPOUNDED PRESCRIPTION dilaudid infusion pump 3.533* RIVAROXABAN 10 MG TABLET Take 20 mg by mouth once hao* SERTRALINE 50 MG TABLET Take 50 mg by mouth once hao* Problem List As Of Date 05/09/2019 Noted Resolved Sacroiliitis, not elsewhere classified [M46.1] INVALID FOR* More... More... More... Fam hx-diabetes mellitus INVALID FOR* More... Obesity [E66.9] INVALID FOR* Lumbar disc disease [M51.9] INVALID FOR* More... Disposition: Return if symptoms worsen or fail to improve. Follow-up and Disposition History Recorded Encounter Status:Closed by JACKIE ROJAS MD on 05/09/19 [facility] PROGRESSon 05-09-2019 PROGRESS HNO ID: [id number] Author: Jackie Rojas Service: ? Author Type: Physician Type: Progress Notes Filed: 05/09/2019 2:44 PM Note Text: RHEUMATOLOGY PROGRESS NOTE Patient is here for a follow up visit for Patient presents with: Results: discuss testing from 04/09/2019. HPI: Flex Wooten is a 58 year old female who presents joint pain. She is here to discuss lab results. No new symptoms. Brief Rheumatological history - Flex Wooten is a 58 year old female who presents with arthralgias. Referral for athralgia. Concern for RA, sjorgrens, mixed connective tissue disorder, lupus. Pain in hands, shoulders, hips, knees, ankles. Feels stiff in AM for less than an hour. Notices swelling in foot, hands, fingers, knees. Joint pains and swelling have been getting worse over time. No alleviating factors, pain meds aren't working with pump. No ibuprofen or tylenol. Pain can be worse at rest or with activity. Sweats profusely, constant dry eyes, dry mouth (OTC eye drops), and hydrating but still thirsty. 25 years ago had a salivary bx that was negative for sjogrens by Dr. Bowles by ENT. Back surgery in 1998. L3-4-5-S1 fusion and pain pump since 2004- see's pain management for [address] Musa at [facility]. Takes oxycodone 2 times daily. Left knee replacement in 2013. Gets injections in lower back, SI, neck and around fusions, and receives them through pain management. H/o anxiety/depression- takes wellbutrin and trazadone, h/o of hypothyroid- takes medications, DM2- takes metformin, HTN- takes medication. History of fibromyalgia. ? ? Family history of autoimmune disease: unknown, patient was adopted, maybe arthritis Smoking status: Tobacco Use: Quit 03/21/1994. ? ? Interval Review of Systems CONSTITUTIONAL: Recent Weight change: No Fever: No EYES: Dryness in nose: No Dryness of mouth: No Oral ulcers: No CARDIOVASCULAR: Pain in chest: No RESPIRATORY: Shortness of breath: No Cough: No GASTROINTESTINAL: Nausea: No Vomiting: No Changes in bowel movements: No Jaundice: No Heartburn: No MUSCULOSKELETAL: Per HPI INTEGUMENTARY: Rash: No HEMATOLOGIC/LYMPHATIC: Anemia: No NEUROLOGICAL SYSTEM: Headaches: No Sensitivity or pain of hands and/or feet: No PSYCHIATRIC: Anxiety: YES Poor sleep: YES PAST MEDICAL HISTORY Diagnosis Date - DVT (deep venous thrombosis) ([facility]) 2014 post knee replacement - Fibromyalgia - Hemorrhage of gastrointestinal tract, unspecified - Hemorrhage of rectum and anus - Internal hemorrhoids without mention of complication - Other forms of migraine - Other unspecified back disorder - Pulmonary embolism ([facility]) 2014 PAST SURGICAL HISTORY Procedure Laterality Date - COLONOSCOP W/ OR W/O [facility] SPEC 2002 Colonoscopy - INTRATHECAL BLOCK - PAST SURGICAL HISTORY OF 2004; updated 2008 calibration constant ( pain pump) inserted into right side of abdomen - PAST SURGICAL HISTORY OF 2005 [facility] FASCITIS - PAST SURGICAL HISTORY OF 1998 fusion -- lumbar -- Dr. Melendez - PAST SURGICAL HISTORY OF 2000 SI joint fusion -- Kody George - PAST SURGICAL HISTORY OF 2009 left knee -- meniscus repair; Dr. Weller, [facility] - REMOVAL OF OVARY(S) - REMOVE TONSILS/ADENOIDS,<12 Y/O - SIGMOIDOSCOPY FLEX DIAG 02/26/09 - SPINAL FUSION,ANT,EA ADNL LEVEL - TOTAL ABDOM HYSTERECTOMY - TOTAL KNEE REPLACEMENT 2014 left History Review: I have reviewed and modified as needed, the following during this visit: Allergies, Past Medical History, Past Surgical History, Past Family History, Past Social History. BP 120/82 Pulse 94 Ht 162.6 cm (5' 4) SpO2 98% BMI 40.51 kg/m? Physical Exam GENERAL: Well appearing, alert, comfortable, in no acute distress, well-hydrated, well nourished. HEENT: Negative for external ears normal. Canals are clear. Both TMs visualized and are normal. Eye Exam normal. External nose normal, no nasal ulcer or throat ulcer. NECK: NECK Supple, no adenopathy; thyroid symmetric, normal size, no bruits CARDIAC: regular rate and rhythm, No murmur asculated. and Equal peripheral pulses RESPIRATORY: Lungs clear to auscultation. No wheezing, rhonchi, rales VASCULAR: RRR without murmur, gallop, or rubs. No ectopy. NEURO: Motor and sensory exam normal MOTOR: Normal; including tone, gait, stressed gait, power and coordination. SKIN: Negative for alopecia, skin rash, malar rash, skin lesion, skin ulcer, pits, thickening, color changes, telangiectasias, nail changes, nail ridging, nail pitting, onycholysis MUSCULOSKELETAL: DIPS: Abnormal, Heberden's nodes PIPS: Abnormal, Teresa's nodes MCPs: Normal Wrists: Normal Elbows: Normal Shoulders: Abnormal, Left shoulder pain with internal rotation C-Spine: Normal Hips: Abnormal, Tender SI joints Knees: Abnormal, Left knee pain, history of knee replacement Ankles: Abnormal, Left ankle pain MTPs / Toes: Normal Arches: Abnormal, Flat feet Lab Results: Glucose 124 04/09/2019 ALT 43 04/09/2019 WBC 6.94 04/09/2019 Hemoglobin 12.5 04/09/2019 Platelet Count 204 04/09/2019 Serology: AJ 1:160, CK 272 Negative aside DNA, [employer] SAFETY PROGRAM COORDINATOR, SSA, SSB, rheumatoid factor, CCP, Acevedo Low ferritin Radiology: IMPRESSION: Postoperative changes. ?Mild degenerative arthritis at the first MTP joints. IMPRESSION: Scoliosis, degenerative spondylosis, and postoperative changes. IMPRESSION: Postoperative and degenerative changes at the right sacroiliac joint. Assessment and Plan (R76.8) AJ positive (primary encounter diagnosis) (R53.81, R53.83) Malaise and fatigue (M25.50) Pain in joint, multiple sites 58-year-old female is here for follow up for joint pain. Patient has history of osteoarthritis involving multiple joints, back surgeries and follows pain management regularly. She also reports chronic dryness which could be related to her medications as well. She also has history of hypothyroidism which could lead to positive serologies sometimes. ? Patient does not have typical clinical features of an autoimmune disease like synovitis, typical rash (malar/discoid/gottron' s/heliotrope), objective muscle weakness, uveitis/scleritis, oral/nasal/genital ulcers, scarring alopecia, h/o organ involvement (nephritis, myopericarditis, hematological abnormalities, neuropathies, cerebritis etc) to suggest the presence of an underlying autoimmune disease. ? Comprehensive rheumatological workup was negative. Positive AJ as expected in patients with thyroid disease. It can seen in healthy people as well. No signs or symptoms or other serologies to support a diagnosis of lupus. ? No orders found for this visit on 05/09/19. No orders of the defined types were placed in this encounter. Return if symptoms worsen or fail to improve. Jackie Rojas MD Normal [facility] AJ by IFA Screenon 04-12-20 19 AJ by IFA Screen SEE BELOW Normal [facility] Comment on above: Result Comment: AJ Positive AB NEGAT Normal range : negative at <1:80 serum dilution. AJ Titer 1:160 AB NEGAT AJ Pattern Homogeneous Performing Laboratory: [facility] [employer] [address] [place] [address] Performed By: #### R F1 #### [facility] [address] [place], [place] [address] CCP Antibody, IgGon 04-12-20 19 CCP Antibody, IgG <15 Normal <20 [facility] Comment on above: Result Comment: < 20 units: Negative 20-39 units: Weak Positive 40-59 units: Moderate Positive > 60 units: Strong Positive The following results were obtained with the [employer] QUANTA Lite CCP3 IgG VENESSA. Anti-CCP values obtained with different manufacturers' assay methods may not be used interchangeably. The magnitude of the reported IgG levels cannot be correlated to an endpoint titer. Performing Laboratory: [place] [address] Performed By: #### R F1 #### [facility] [address] [place] [address] DS-DNA Abon 04-12-2019 DS-DNA Ab SEE BELOW Normal [facility] Comment on above: Result Comment: DNA Antibody w/ Conf. <12 <30 IU/mL Negative for ds DNA Antibodies Negative: <30 IU/mL Equivocal: 30-74 IU/mL Positive: >74 IU/mL Performing Laboratory: [place] [address] Performed By: #### R F1 #### [place] [address] [employer] PROGRAM COORDINATOR Antibodyon 04-12-2019 [employer] SAFETY PROGRAM COORDINATOR Antibody <0.2 Normal <1.0 [facility] Comment on above: Result Comment: Nega tive Negative: <1.0 AI Positive: >0.9 AI Performing Laboratory: [place] [address] Performed By: #### R F1 #### [place] [address] Sjogren Antibodieson 019 Sjogren Antibodies SEE BELOW Normal [facility] Comment on above: Result Comment: SSA Antibody <0.2 <1.0 AI Negative Negative: <1.0 AI Positive: >0.9 AI SSB Antibody <0.2 <1.0 AI Negative Negative: <1.0 AI Positive: >0.9 AI Performing Laboratory: [place] [address] Performed By: #### R F1 #### [place] [address] Acevedo Abs IgGon 04-12-2019 Acevedo Abs IgG SEE BELOW Normal [facility] Comment on above: Result Comment: Sm A ntibody <0.2 <1.0 AI Negative Negative: <1.0 AI Positive: >0.9 AI Performing Laboratory: [place] [address] Performed By: #### R F1 #### [facility] [address] [place], [place] [address] Total 25-OH Vitamin Don 03-29 Total 25-OH Vitamin D 31.3 ng/mL [facility] 30.0-[facility] [employer] [facility] Comment on above: Performed By: #### R F1 #### [facility] [address] [place], [place] [address] CNOVon 04-09-2019 CNOV Office Visit (RHBATH ) FLEX WOOTEN ([id number]) 1960 F Date Time Provider Department 04/09/19 10:30 AM JACKIE ROJAS RHBLES During your visit today, we recorded the following information about you: Temperature Pulse Blood pressure Weight 98.4 degrees 68/minute 126/80 107 kg Height 1.626 m Jackie Rojas MD 04/09/2019 2:27 PM Signed RHEUMATOLOGY NEW PATIENT NOTE REFERRING PHYSICIAN: Rica Padgett CHIEF COMPLAINT: Patient presents with: New Patient HPI: Flex Wooten is a 58 year old female who presents with arthralgias. Referral for athralgia. Concern for RA, sjorgrens, mixed connective tissue disorder, lupus. Pain in hands, shoulders, hips, knees, ankles. Feels stiff in AM for less than an hour. Notices swelling in foot, hands, fingers, knees. Joint pains and swelling have been getting worse over time. No alleviating factors, pain meds aren't working with pump. No ibuprofen or tylenol. Pain can be worse at rest or with activity. Sweats profusely, constant dry eyes, dry mouth (OTC eye drops), and hydrating but still thirsty. 25 years ago had a salivary bx that was negative for sjogrens by Dr. Bowles by ENT. Back surgery in 1998. L3-4-5-S1 fusion and pain pump since 2004- see's pain management for [address] Musa at [facility]. Takes oxycodone 2 times daily. Left knee replacement in 2014. Gets injections in lower back, SI, neck and around fusions, and receives them through pain management. H/o anxiety/depression- takes wellbutrin and trazadone, h/o of hypothyroid- takes medications, DM2- takes metformin, HTN- takes medication. History of fibromyalgia. Family history of autoimmune disease: unknown, patient was adopted, maybe arthritis Smoking status: Tobacco Use: Quit 03/21/1994. Rheumatology REVIEW OF SYSTEMS: Constitutional: Recent Weight Change: No Fatigue: YES Fever: No Night sweats: YES constantly sweating Heent: Alopecia: YES H/o Inflammatory eye disease (iritis/scleritis): No Hearing loss: No Frequent sinusitis: No Oral ulcers: No Sicca: YES Dry mouth- always thirsty, dry eye- uses OTC drops Parotid swelling: No Hoarseness: No Dysphagia: No Heme/lymph: Lymphadenopathy: YES has a history of hypothyroid as well Hematological abnormalities (anemia, thrombocytopenia, leukopenia): No Abnormal bleeding: No Skin: Malar or discoid lesions: YES says is always present-wears makeup Photosensitivity: YES Other rashes: No Raynaud's phenomenon: YES no ulcers Hives: No Tightness: No Nodules/bumps: No Easy Bruising: No Nail changes: YES lines in nails H/o psoriasis: No Gastroenterology: Nausea: {YES Vomiting: No Change in bowel movements: YES diarrhea but h/o diverticulosis Heartburn: No Respiratory: Dry cough/SOB: No Cardiovascular: Pain in chest: No Musculoskeletal: Per HPI Joint pain or swelling: YES Prolonged morning stiffness: YES less than an hour Back pain or neck pain: YES h/o spinal fusion and need for injections Muscle weakness: No Genitourinary: Vaginal dryness: No Rash/ulcers: No Neurological: Headaches: YES Sensitivity or pain of hands and/or feet: YES left foot is numb Psychiatry: Anxiety: YES Depression: YES Poor sleep: YES H/o loss: No H/o thrombosis: No Increased susceptibility to infection: No PAST MEDICAL HISTORY Diagnosis Date - DVT (deep venous thrombosis) ([facility] 2013 post knee replacement - Fibromyalgia - Hemorrhage of gastrointestinal tract, unspecified - Hemorrhage of rectum and anus - Internal hemorrhoids without mention of complication - Other forms of migraine - Other unspecified back disorder - Pulmonary embolism (HCC) 2013 PAST SURGICAL HISTORY Procedure Laterality Date - COLONOSCOP W/ OR W/O [facility] SPEC 2002 Colonoscopy - INTRATHECAL BLOCK - PAST SURGICAL HISTORY OF 2004; updated 2009 calibration constant ( pain pump) inserted into right side of abdomen - PAST SURGICAL HISTORY OF 2005 [facility] FASCITIS - PAST SURGICAL HISTORY OF 1998 fusion -- lumbar -- Dr. Melendez - PAST SURGICAL HISTORY OF 2000 SI joint fusion -- Kody George - PAST SURGICAL HISTORY OF 2009 left knee -- meniscus repair; [facility] - REMOVAL OF OVARY(S) - REMOVE TONSILS/ADENOIDS,<10 Y/O - SIGMOIDOSCOPY FLEX DIAG 02/26/09 - SPINAL FUSION,ANT,EA ADNL LEVEL - TOTAL ABDOM HYSTERECTOMY - TOTAL KNEE REPLACEMENT 2014 left Current Outpatient Medications: atenolol (TENORMIN) 25 mg tablet Take 25 mg by mouth once daily. levothyroxine (SYNTHROID) 50 mcg tablet 50 mcg. metFORMIN ER (GLUMETZA) 500 mg 24 hr [...] Take 250 mg by mouth once daily. LACTOBACILLUS ACIDOPHILUS (PROBIOTIC ORAL) Take by mouth. lisinopril-hydrochlorot hiazide (PRINZIDE, ZESTORETIC) 20-25 mg per tablet Take 1 tablet by mouth once daily. sertraline (ZOLOFT) 50 mg tablet Take 50 mg by mouth once daily. hydrOXYzine HCl 50 mg tablet Take 50 mg by mouth twice daily. Omeprazole 40 mg capsule Take 40 mg by mouth once daily. traZODONE 100 mg ORAL tablet Take 1 tablet by mouth daily at bedtime. LORazepam (ATIVAN) 1 mg ORAL tablet Take 1 tablet by mouth twice daily as needed. COMPOUNDED PRESCRIPTION dilaudid infusion pump 3.533mg/day SYNTHROID 50 mcg tablet VITAMIN B COMPLEX ORAL Take by mouth. rivaroxaban (XARELTO) 10 mg tablet Take 20 mg by mouth once daily. ERGOCALCIFEROL, VITAMIN D2, (VITAMIN D2 ORAL) Take by mouth. MULTIVITAMIN ORAL Take by mouth. No current facility-administered medications for this visit. ALLERGIES Allergen Reactions - Neurontin [Gabapent* Mental Status Change - Niacin Rash, Hives, Itching FAMILY HISTORY Adopted: Yes Problem Relation Age of Onset - Diabetes Mother - Alcohol/Drug Mother - Arthritis Mother - Heart Mother - Diabetes Sister - Diabetes Sister - Diabetes Sister Social History Socioeconomic History Marital status: Spouse name: Lavinia Wooten Number of children: 2 Years of education: 13 Highest education level: Not on file Occupational History Occupation: disability Social Needs Financial resource strain: Not on file Food insecurity: Worry: Not on file Inability: Not on file Transportation needs: Medical: Not on file Non-medical: Not on file Tobacco Use Smoking status: Former Smoker Quit date: 03/21/1994 Years since quittin.0 Smokeless tobacco: Never Used Substance and Sexual Activity Alcohol use: Yes Comment: rarely Drug use: No Sexual activity: Never Lifestyle Physical activity: Days per week: Not on file Minutes per session: Not on file Stress: Not on file Relationships Social connections: Talks on phone: Not on file Gets together: Not on file Attends quaker service: Not on file Active member of club or organization: Not on file Attends meetings of clubs or organizations: Not on file Relationship status: Not on file Intimate partner violence: Fear of current or ex partner: Not on file Emotionally abused: Not on file Physically abused: Not on file Forced sexual activity: Not on file Other Topics Concerns: Not on file Social History Narrative Not on file Occupation: Employer And Job Title: No employer specified (disability) Years Of Education Completed: 13 years Marital Status: to Lavinia Wooten with 2 children History Review: I have reviewed and modified as needed, the following during this visit: Allergies, Past Medical History, Past Surgical History, Past Family History, Past Social History. BP 126/80 (BP Site: Left Arm, BP Position: Sitting) Pulse 68 Temp 36.9 ?C (98.4 ?F) Ht 162.6 cm (5' 4) Wt 107 kg (236 lb) BMI 40.51 kg/m? Physical Exam GENERAL: Well appearing, alert, comfortable, in no acute distress, well-hydrated, well nourished. HEENT: Negative for external ears normal. Canals are clear. Both TMs visualized and are normal. Eye Exam normal. External nose normal, no nasal ulcer or throat ulcer. NECK: NECK Supple, no adenopathy; thyroid symmetric, normal size, no bruits CARDIAC: regular rate and rhythm, No murmur asculated. and Equal peripheral pulses RESPIRATORY: Lungs clear to auscultation. No wheezing, rhonchi, rales VASCULAR: RRR without murmur, gallop, or rubs. No ectopy. ABDOMEN: Soft, non tender. BS active. No masses or organomegaly. Pain pump present on Right side. LYMPHATIC: Negative for adenopathy in the axillae, groin, supraclavicular and auricular. Positive for neck lymphadenopathy NEURO: Motor and sensory exam normal. + neuropathy in left foot. MOTOR: Normal; including tone, gait, stressed gait, power and coordination. SKIN: Negative for alopecia, skin rash, malar rash, skin lesion, skin ulcer, pits, thickening, color changes, telangiectasias, nail pitting, onycholysis. Positive for transverse nail ridges. MUSCULOSKELETAL: DIPS: Abnormal, Heberden's nodes PIPS: Abnormal, Teresa's nodes MCPs: Normal Wrists: Normal Elbows: Normal Shoulders: Abnormal, Left shoulder pain with internal rotation C-Spine: Normal Hips: Abnormal, Tender SI joints Knees: Abnormal, Left knee pain, history of knee replacement Ankles: Abnormal, Left ankle pain MTPs / Toes: Normal Arches: Abnormal, Flat feet Summary of old labs/radiology: Review/request of outside labs and imaging: Pertinent labs: Glucose 96 06/10/2003 ALT 28 06/10/2003 WBC 9.24 06/10/2003 Hemoglobin 14.5 06/10/2003 Platelet Count 267 06/10/2003 Serology: Pertinent imaging: Assessment and Plan (M25.50) Pain in joint, multiple sites (primary encounter diagnosis) (E55.9) Vitamin D deficiency 58-year-old female is here for evaluation and management recommendations for joint pain. Patient has history of osteoarthritis involving multiple joints, back surgeries and follows pain management regularly. She also reports chronic dryness which could be related to her medications as well. She also has history of hypothyroidism which could lead to positive serologies sometimes. Patient does not have typical clinical features of an autoimmune disease like synovitis, typical rash (malar/discoid/gottron' s/heliotrope), objective muscle weakness, uveitis/scleritis, oral/nasal/genital ulcers, scarring alopecia, h/o organ involvement (nephritis, myopericarditis, hematological abnormalities, neuropathies, cerebritis etc) to suggest the presence of an underlying autoimmune disease. Likelihood of an autoimmune disease seems low however we will evaluate with the following labs and x-rays. Close follow-up to discuss results. Office Visit on 04/09/19 - XR HAND GENERAL 3V PA/LAT/OBL LT - XR HAND GENERAL 3V PA/LAT/OBL RT - XR FOOT GENERAL 3V AP/LAT/OBL LT - XR FOOT GENERAL 3V AP/LAT/OBL RT - XR SACROILIAC JOINTS 2V AP PELVIS/FERGUESON - XR LUMBAR LIMITED 2V AP/LAT - AJ BY IFA SCREEN - DNA ANTIBODY DS BLD - AUT[employer]UB SAFETY PROGRAM COORDINATOR ANTIBODY BLOOD - ACEVEDO IGG AB - SJOGREN ABS SSA/SSB - RHEUMATOID FACTOR BL - CCP ANTIBODY IGG - CK CREATINE KINASE - VITAMIN D 25 HYDROXY - FERRITIN BLD - IRON + TIBC - UA WITH CULTURE IF INDICATED - CREATININE RANDOM UR - PROTEIN RANDOM UR - CBC + DIFF - COMP METABOLIC PANEL Medication orders placed this encounter aspirin, enteric coated (ASPIR-81) 81 mg EC tablet Sig: Take 81 mg by mouth once daily. atenolol (TENORMIN) 25 mg tablet Sig: Take 25 mg by mouth once daily. BUPROPION HCL ORAL Sig: Take 1,500 mg by mouth once daily. folic acid 1 mg tablet Sig: Take 400 mg by mouth once daily. levothyroxine (SYNTHROID) 50 mcg tablet Si mcg. Magnesium 250 mg tab Sig: Take 250 mg by mouth once daily. meloxicam (MOBIC) 7.5 mg tablet Sig: Take 7.5 mg by mouth once daily. metFORMIN ER (GLUMETZA) 500 mg 24 hr tablet Sig: Take 500 mg by mouth daily with breakfast. oxyCODONE-acetaminophen (PERCOCET) 5-325 mg tablet Sig: Take 1 tablet by mouth once daily. simvastatin (ZOCOR) 20 mg tablet Sig: Take 20 mg by mouth daily at bedtime. SYNTHROID 50 mcg tablet tiZANidine (ZANAFLEX) 4 mg tablet Sig: Take 4 mg by mouth once daily. Return in about 4 weeks (around 05/07/2019) for discuss lab results. Jackie Rojas MD Referring Provider: RICA PADGETT [[id number]] Allergies As of Date: 04/09/2019 Noted Allergy Reaction NEURONTIN (GABAPENTIN) 07/14/2005 1 - Mental Status Change NIACIN 11/24/2006 2 - Rash 4 - Hives 9 - Itching Date Reviewed: 04/09/2019 Reviewed by: Talia Dy - Fully Assessed Reason for Visit: New Patient [172] Primary Visit Diagnosis:Pain in joint, multiple sites [M25.50] Other Visit Diagnosis:Vitamin D deficiency [E55.9] Order(s):AJ BY IFA SCREEN [SQANAIFS] Order #: [id number] FUTURE DNA ANTIBODY DS BLD [SQDNAAB] Order #: [id number] FUTURE AUT[employer] CLUB SAFETY PROGRAM COORDINATOR ANTIBODY BLOOD [SQARNP] Order #: [id number] FUTURE ACEVEDO IGG AB [SQSMAB] Order #: [id number] FUTURE SJOGREN ABS SSA/SSB [SQXSSAB] Order #: [id number] FUTURE RHEUMATOID FACTOR BL [SQRF] Order #: [id number] FUTURE CCP ANTIBODY IGG [SQCCP] Order #: [id number] FUTURE CK CREATINE KINASE [SQCK] Order #: [id number] FUTURE VITAMIN D 25 HYDROXY [SQVITD] Order #: [id number] FUTURE FERRITIN BLD [SQFERR] Order #: [id number] FUTURE IRON + TIBC [SQIRON] Order #: [id number] FUTURE UA WITH CULTURE IF INDICATED [SQUACII] Order #: [id number] FUTURE CREATININE RANDOM UR [SQUCRR] Order #: [id number] FUTURE PROTEIN RANDOM UR [SQUTPR] Order #: [id number] FUTURE CBC + DIFF [SQCBCDIF] Order #: [id number] FUTURE COMP METABOLIC PANEL [SQCMP] Order #: [id number] FUTURE XR HAND GENERAL 3V PA/LAT/OBL LT [7891179] Order #: [id number] FUTURE XR HAND GENERAL 3V PA/LAT/OBL RT [2907947] Order #: [id number] FUTURE XR FOOT GENERAL 3V AP/LAT/OBL LT [2046464] Order #: [id number] FUTURE XR FOOT GENERAL 3V AP/LAT/OBL RT [9658200] Order #: [id number] FUTURE XR SACROILIAC JOINTS 2V AP PELVIS/FERGUESON [8543264] Order #: [id number] FUTURE XR LUMBAR LIMITED 2V AP/LAT [7659065] Order #: [id number] FUTURE Prescriptions as of 04/09/2019 Sig: ATENOLOL 25 MG TABLET Take 25 mg by mouth once hao* LEVOTHYROXINE 50 MCG TABLET 50 mcg. METFORMIN ER 500 MG 24 HR TAB* Take 500 mg by mouth daily wi* SIMVASTATIN 20 MG TABLET Take 20 mg by mouth daily at * MELOXICAM 7.5 MG TABLET Take 7.5 mg by mouth once riya* BUPROPION HCL ORAL Take 1,500 mg by mouth once d* OXYCODONE-ACETAMINOPHEN 5 MG-* Take 1 tablet by mouth once d* ASPIRIN 81 MG TABLET,DELAYED * Take 81 mg by mouth once hao* TIZANIDINE 4 MG TABLET Take 4 mg by mouth once daily. FOLIC ACID 1 MG TABLET Take 400 mg by mouth once riya* MAGNESIUM 250 MG TABLET Take 250 mg by mouth once riya* PROBIOTIC ORAL Take by mouth. LISINOPRIL 20 MG-HYDROCHLOROT* Take 1 tablet by mouth once d* SERTRALINE 50 MG TABLET Take 50 mg by mouth once hao* HYDROXYZINE HCL 50 MG TABLET Take 50 mg by mouth twice riya* OMEPRAZOLE 40 MG CAPSULE,DANIEL* Take 40 mg by mouth once hao* TRAZODONE 100 MG TABLET Take 1 tablet by mouth daily * LORAZEPAM 1 MG TABLET Take 1 tablet by mouth twice * COMPOUNDED PRESCRIPTION dilaudid infusion pump 3.533* SYNTHROID 50 MCG TABLET VITAMIN B COMPLEX ORAL Take by mouth. RIVAROXABAN 10 MG TABLET Take 20 mg by mouth once hao* VITAMIN D2 ORAL Take by mouth. MULTIVITAMIN ORAL Take by mouth. Problem List As Of Date 04/09/2019 Noted Resolved Sacroiliitis, not elsewhere classified [M46.1] INVALID FOR* More... More... More... Fam hx-diabetes mellitus INVALID FOR* More... Obesity [E66.9] INVALID FOR* Lumbar disc disease [M51.9] INVALID FOR* More... Disposition: Return in about 4 weeks (around 05/07/2019) for discuss lab results. Follow-up and Disposition History Recorded Questionnaire: COSMO HINOJOSA YEARLY ADL ASSESSMENT Toileting -> Independent Bathing -> Independent Upper Body Dressing -> Independent Lower Body Dressing -> Independent Grooming/Hygiene -> Independent Self Feeding -> Independent Home Management (laundry/cleaning/chore s/simple meal prep) -> Independent Encounter Status:Closed by JACKIE ROJAS MD on 04/09/19 Normal [facility] CPKon 04-09-2019 CK [Catalytic activity/Vol] 272 U/L High 26-192 [facility] Comment on above: Performed By: #### C K #### [place] [address] Comprehensive Panelon 2018 ALP [Catalytic activity/Vol] 87 U/L Normal 45-117 [facility] Comment on above: Performed By: #### P 14 #### [address] [address] Bilirubin [Mass/Vol] 0.2 mg/dL Normal 0.2-1.0 [facility] Comment on above: Performed By: #### P 14 #### [address] [address] Protein [Mass/Vol] 7.0 g/dL Normal 6.4-8.2 [facility] Comment on above: Performed By: #### P 14 #### [place] [address] ALT [Catalytic activity/Vol] 43 U/L Normal 12-78 [facility] Comment on above: Performed By: #### P 14 #### [address] [address] Creatinine [Mass/Vol] 0.74 mg/dL Normal 0.51-0.95 [facility] Comment on above: Performed By: #### P 14 #### [facility] [address] [place], [place] [address] AST [Catalytic activity/Vol] 22 U/L Normal 15-37 [facility] Comment on above: Performed By: #### P 14 #### [facility] [address] [place], [place] [address] Albumin [Mass/Vol] 3.6 g/dL Normal 3.4-5.0 [facility] Comment on above: Performed By: #### P 14 #### [facility] [address] [place], [place] [address] Anion gap [Moles/Vol] 9 mmol/L Normal 8-16 [facility] Comment on above: Performed By: #### P 14 #### [facility] [address] [place], [place] [address] CO2 [Moles/Vol] 31 mmol/L Normal 21-32 [facility] Comment on above: Performed By: #### P 14 #### [facility] [address] [place], [place] [address] Urea nitrogen [Mass/Vol] 16 mg/dL Normal 7-18 [facility] Comment on above: Performed By: #### P 14 #### [facility] [address] [place], [place] [address] Calcium [Mass/Vol] 8.9 mg/dL Normal 8.5-10.1 [facility] Comment on above: Performed By: #### P 14 #### [facility] [address] [place], [place] [address] Glucose [Mass/Vol] 124 mg/dL High 70-99 [facility] Comment on above: Performed By: #### P 14 #### [facility] [address] [place], [place] [address] Chloride [Moles/Vol] 100 mmol/L Normal 98-107 [facility] Comment on above: Performed By: #### P 14 #### [facility] [address] [place], [place] [address] Potassium [Moles/Vol] 4.4 mmol/L Normal 3.5-5.1 [facility] Comment on above: Performed By: #### P 14 #### [place] [address] Sodium [Moles/Vol] 136 mmol/L Normal 136-145 [facility] Comment on above: Performed By: #### P 14 #### [place] [address] Creatinine,Urineon 9 Creatinine,Urine 71.9 mg/dL Normal [facility] Comment on above: Performed By: #### C REAU #### [place] [address] Ferritinon 04-09-2019 Ferritin [Mass/Vol] 11.80 ng/mL Normal 8.00-252.00 [facility] Comment on above: Performed By: #### F ERR #### [place] [address] Hemogram/Diffon 04-09-2019 Abs Immature Grans 0.03 thou/cmm Normal 0.00-0.05 [facility] Comment on above: Performed By: #### C BCD1 #### [place] [address] Abs Neut (ANC) 4.15 thou/cmm Normal 1.56-6.13 [facility] Comment on above: Performed By: #### C BCD1 #### [place] [address] Abs. Baso 0.06 thou/cmm Normal 0.01-0.08 [facility] Comment on above: Performed By: #### C BCD1 #### [place] [address] Abs. Smyth 0.43 thou/cmm Normal 0.27-0.70 [facility] Comment on above: Performed By: #### C BCD1 #### [place] [address] Basophils/100 WBC (Bld) 0.9 % Normal [facility] Comment on above: Performed By: #### C BCD1 #### [facility] [address] [place], [place] [address] Eosinophils (Bld) [#/Vol] 0.18 thou/cmm Normal 0.00-0.31 [facility] Comment on above: Performed By: #### C BCD1 #### [facility] [address] [place], [place] [address] Eosinophils/100 WBC (Bld) 2.6 % Normal [facility] Comment on above: Performed By: #### C BCD1 #### [facility] [address] [place], [place] [address] Erythrocyte distribution width (RBC) [Ratio] 13.4 % Normal 11.7-14.4 [facility] Comment on above: Performed By: #### C BCD1 #### [facility] [address] [place], [place] [address] Hematocrit (Bld) [Volume fraction] 39.8 % Normal 34.1-44.9 [facility] Comment on above: Performed By: #### C BCD1 #### [facility] [address] [place], [place] [address] Hemoglobin (Bld) [Mass/Vol] 12.5 g/dL Normal 11.2-15.7 [facility] Comment on above: Performed By: #### C BCD1 #### [facility] [address] [place], [place] [address] Immature Grans 0.40 % Normal [facility] Comment on above: Performed By: #### C BCD1 #### [facility] [address] [place], [place] [address] Lymphocytes (Bld) [#/Vol] 2.09 thou/cmm Normal 1.18-3.74 [facility] Comment on above: Performed By: #### C BCD1 #### [facility] [address] [place], [place] [address] Lymphocytes/100 WBC (Bld) 30.1 % Normal [facility] Comment on above: Performed By: #### C BCD1 #### [facility] [address] [place] [address] MCH (RBC) [Entitic mass] 26.7 pg Normal 25.6-32.2 [facility] Comment on above: Performed By: #### C BCD1 #### [facility] [address] [place] [address] MCHC (RBC) [Mass/Vol] 31.4 % Low 31.6-34.8 [facility] Comment on above: Performed By: #### C BCD1 #### [facility] [address] [place] [address] MCV (RBC) [Entitic vol] 85.0 fL Normal 79.4-94.8 [facility] Comment on above: Performed By: #### C BCD1 #### [facility] [address] [place] [address] Monocytes/100 WBC (Bld) 6.2 % Normal [facility] Comment on above: Performed By: #### C BCD1 #### [facility] [address] [place] [address] Platelet mean volume (Bld) [Entitic vol] 9.8 fL Normal 9.4-12.3 [facility] Comment on above: Performed By: #### C BCD1 #### [facility] [address] [place] [address] Platelets (Bld) [#/Vol] 204 thou/cmm Normal 182-369 [facility] Comment on above: Performed By: #### C BCD1 #### [facility] [address] [place] [address] RBC (Bld) [#/Vol] 4.68 mil/cmm Normal 3.93-5.22 [facility] Comment on above: Performed By: #### C BCD1 #### [facility] [address] [place] [address] RDW SD 41.3 fl Normal 36.4-46.3 [facility] Comment on above: Performed By: #### C BCD1 #### [facility] [address] [place] [address] Seg Neutrophil 59.8 % Normal [facility] Comment on above: Performed By: #### C BCD1 #### [facility] [address] [place], [place] [address] WBC (Bld) [#/Vol] 6.94 thou/cmm Normal 3.98-10.04 [facility] Comment on above: Performed By: #### C BCD1 #### [facility] [address] [place], [place] [address] Iron % Saturationon 04-09-20 19 Iron % Saturation 17 % Low 20-55 [facility] Comment on above: Performed By: #### I RONS #### [facility] [address] [place], [place] [address] Iron Binding Cap. 369 ug/dL Normal 250-450 [facility] Comment on above: Performed By: #### I RONS #### [place] [address] Iron Serum 61 ug/dL Normal 50-170 [facility] Comment on above: Performed By: #### I RONS #### [facility] [address] [place] [address] MDRD GFRon 04-09-2019 GFR/1.73 sq M predicted among non-blacks MDRD (S/P/Bld) [Vol rate/Area] mL/min/{1.73_m2} Normal >60mL/min/1 .73m2 [facility] Comment on above: Result Comment: If t he patient is , multiply the result by 1.210. Performed By: #### G FR #### [place] [address] PROGRESSon 04-09-2019 PROGRESS HNO ID: [id number] Author: Jackie Rojas Service: ? Author Type: Physician Type: Progress Notes Filed: 04/09/2019 2:27 PM Note Text: RHEUMATOLOGY NEW PATIENT NOTE REFERRING PHYSICIAN: Rica Padgett CHIEF COMPLAINT: Patient presents with: New Patient HPI: Flex Wooten is a 58 year old female who presents with arthralgias. Referral for athralgia. Concern for RA, sjorgrens, mixed connective tissue disorder, lupus. Pain in hands, shoulders, hips, knees, ankles. Feels stiff in AM for less than an hour. Notices swelling in foot, hands, fingers, knees. Joint pains and swelling have been getting worse over time. No alleviating factors, pain meds aren't working with pump. No ibuprofen or tylenol. Pain can be worse at rest or with activity. Sweats profusely, constant dry eyes, dry mouth (OTC eye drops), and hydrating but still thirsty. 25 years ago had a salivary bx that was negative for sjogrens by Dr. Bowles by ENT. Back surgery in 1998. L3-4-5-S1 fusion and pain pump since 2004- see's pain management for [address] Musa at [facility]. Takes oxycodone 2 times daily. Left knee replacement in 2013. Gets injections in lower back, SI, neck and around fusions, and receives them through pain management. H/o anxiety/depression- takes wellbutrin and trazadone, h/o of hypothyroid- takes medications, DM2- takes metformin, HTN- takes medication. History of fibromyalgia. Family history of autoimmune disease: unknown, patient was adopted, maybe arthritis Smoking status: Tobacco Use: Quit 03/21/1994. Rheumatology REVIEW OF SYSTEMS: Constitutional: Recent Weight Change: No Fatigue: YES Fever: No Night sweats: YES constantly sweating Heent: Alopecia: YES H/o Inflammatory eye disease (iritis/scleritis): No Hearing loss: No Frequent sinusitis: No Oral ulcers: No Sicca: YES Dry mouth- always thirsty, dry eye- uses OTC drops Parotid swelling: No Hoarseness: No Dysphagia: No Heme/lymph: Lymphadenopathy: YES has a history of hypothyroid as well Hematological abnormalities (anemia, thrombocytopenia, leukopenia): No Abnormal bleeding: No Skin: Malar or discoid lesions: YES says is always present-wears makeup Photosensitivity: YES Other rashes: No Raynaud's phenomenon: YES no ulcers Hives: No Tightness: No Nodules/bumps: No Easy Bruising: No Nail changes: YES lines in nails H/o psoriasis: No Gastroenterology: Nausea: {YES Vomiting: No Change in bowel movements: YES diarrhea but h/o diverticulosis Heartburn: No Respiratory: Dry cough/SOB: No Cardiovascular: Pain in chest: No Musculoskeletal: Per HPI Joint pain or swelling: YES Prolonged morning stiffness: YES less than an hour Back pain or neck pain: YES h/o spinal fusion and need for injections Muscle weakness: No Genitourinary: Vaginal dryness: No Rash/ulcers: No Neurological: Headaches: YES Sensitivity or pain of hands and/or feet: YES left foot is numb Psychiatry: Anxiety: YES Depression: YES Poor sleep: YES H/o loss: No H/o thrombosis: No Increased susceptibility to infection: No PAST MEDICAL HISTORY Diagnosis Date - DVT (deep venous thrombosis) ([facility] 2013 post knee replacement - Fibromyalgia - Hemorrhage of gastrointestinal tract, unspecified - Hemorrhage of rectum and anus - Internal hemorrhoids without mention of complication - Other forms of migraine - Other unspecified back disorder - Pulmonary embolism ([facility]) 2013 PAST SURGICAL HISTORY Procedure Laterality Date - COLONOSCOP W/ OR W/O [facility] SPEC 2002 Colonoscopy - INTRATHECAL BLOCK - PAST SURGICAL HISTORY OF 2004; updated 2008 calibration constant ( pain pump) inserted into right side of abdomen - PAST SURGICAL HISTORY OF 2005 [facility] - PAST SURGICAL HISTORY OF 1998 fusion -- lumbar -- Dr. Melendez - PAST SURGICAL HISTORY OF 2000 SI joint fusion -- Kody George - PAST SURGICAL HISTORY OF 2009 left knee -- meniscus repair; [facility] - REMOVAL OF OVARY(S) - REMOVE TONSILS/ADENOIDS,<10 Y/O - SIGMOIDOSCOPY FLEX DIAG 02/26/09 - SPINAL FUSION,ANT,EA ADNL LEVEL - TOTAL ABDOM HYSTERECTOMY - TOTAL KNEE REPLACEMENT 2014 left Current Outpatient Medications: atenolol (TENORMIN) 25 mg tablet Take 25 mg by mouth once daily. levothyroxine (SYNTHROID) 50 mcg tablet 50 mcg. metFORMIN ER (GLUMETZA) 500 mg 24 hr [...] Take 250 mg by mouth once daily. LACTOBACILLUS ACIDOPHILUS (PROBIOTIC ORAL) Take by mouth. lisinopril-hydrochlorot hiazide (PRINZIDE, ZESTORETIC) 20-25 mg per tablet Take 1 tablet by mouth once daily. sertraline (ZOLOFT) 50 mg tablet Take 50 mg by mouth once daily. hydrOXYzine HCl 50 mg tablet Take 50 mg by mouth twice daily. Omeprazole 40 mg capsule Take 40 mg by mouth once daily. traZODONE 100 mg ORAL tablet Take 1 tablet by mouth daily at bedtime. LORazepam (ATIVAN) 1 mg ORAL tablet Take 1 tablet by mouth twice daily as needed. COMPOUNDED PRESCRIPTION dilaudid infusion pump 3.533mg/day SYNTHROID 50 mcg tablet VITAMIN B COMPLEX ORAL Take by mouth. rivaroxaban (XARELTO) 10 mg tablet Take 20 mg by mouth once daily. ERGOCALCIFEROL, VITAMIN D2, (VITAMIN D2 ORAL) Take by mouth. MULTIVITAMIN ORAL Take by mouth. No current facility-administered medications for this visit. ALLERGIES Allergen Reactions - Neurontin [Gabapent* Mental Status Change - Niacin Rash, Hives, Itching FAMILY HISTORY Adopted: Yes Problem Relation Age of Onset - Diabetes Mother - Alcohol/Drug Mother - Arthritis Mother - Heart Mother - Diabetes Sister - Diabetes Sister - Diabetes Sister Social History Socioeconomic History Marital status: Spouse name: Lavinia Wooten Number of children: 2 Years of education: 13 Highest education level: Not on file Occupational History Occupation: disability Social Needs Financial resource strain: Not on file Food insecurity: Worry: Not on file Inability: Not on file Transportation needs: Medical: Not on file Non-medical: Not on file Tobacco Use Smoking status: Former Smoker Quit date: 03/21/1994 Years since quittin.0 Smokeless tobacco: Never Used Substance and Sexual Activity Alcohol use: Yes Comment: rarely Drug use: No Sexual activity: Never Lifestyle Physical activity: Days per week: Not on file Minutes per session: Not on file Stress: Not on file Relationships Social connections: Talks on phone: Not on file Gets together: Not on file Attends quaker service: Not on file Active member of club or organization: Not on file Attends meetings of clubs or organizations: Not on file Relationship status: Not on file Intimate partner violence: Fear of current or ex partner: Not on file Emotionally abused: Not on file Physically abused: Not on file Forced sexual activity: Not on file Other Topics Concerns: Not on file Social History Narrative Not on file Occupation: Employer And Job Title: No employer specified (disability) Years Of Education Completed: 13 years Marital Status: to Lavinia Wooten with 2 children History Review: I have reviewed and modified as needed, the following during this visit: Allergies, Past Medical History, Past Surgical History, Past Family History, Past Social History. BP 126/80 (BP Site: Left Arm, BP Position: Sitting) Pulse 68 Temp 36.9 ?C (98.4 ?F) Ht 162.6 cm (5' 4) Wt 107 kg (236 lb) BMI 40.51 kg/m? Physical Exam GENERAL: Well appearing, alert, comfortable, in no acute distress, well-hydrated, well nourished. HEENT: Negative for external ears normal. Canals are clear. Both TMs visualized and are normal. Eye Exam normal. External nose normal, no nasal ulcer or throat ulcer. NECK: NECK Supple, no adenopathy; thyroid symmetric, normal size, no bruits CARDIAC: regular rate and rhythm, No murmur asculated. and Equal peripheral pulses RESPIRATORY: Lungs clear to auscultation. No wheezing, rhonchi, rales VASCULAR: RRR without murmur, gallop, or rubs. No ectopy. ABDOMEN: Soft, non tender. BS active. No masses or organomegaly. Pain pump present on Right side. LYMPHATIC: Negative for adenopathy in the axillae, groin, supraclavicular and auricular. Positive for neck lymphadenopathy NEURO: Motor and sensory exam normal. + neuropathy in left foot. MOTOR: Normal; including tone, gait, stressed gait, power and coordination. SKIN: Negative for alopecia, skin rash, malar rash, skin lesion, skin ulcer, pits, thickening, color changes, telangiectasias, nail pitting, onycholysis. Positive for transverse nail ridges. MUSCULOSKELETAL: DIPS: Abnormal, Heberden's nodes PIPS: Abnormal, Teresa's nodes MCPs: Normal Wrists: Normal Elbows: Normal Shoulders: Abnormal, Left shoulder pain with internal rotation C-Spine: Normal Hips: Abnormal, Tender SI joints Knees: Abnormal, Left knee pain, history of knee replacement Ankles: Abnormal, Left ankle pain MTPs / Toes: Normal Arches: Abnormal, Flat feet Summary of old labs/radiology: Review/request of outside labs and imaging: Pertinent labs: Glucose 96 06/10/2003 ALT 28 06/10/2003 WBC 9.24 06/10/2003 Hemoglobin 14.5 06/10/2003 Platelet Count 267 06/10/2003 Serology: Pertinent imaging: Assessment and Plan (M25.50) Pain in joint, multiple sites (primary encounter diagnosis) (E55.9) Vitamin D deficiency 58-year-old female is here for evaluation and management recommendations for joint pain. Patient has history of osteoarthritis involving multiple joints, back surgeries and follows pain management regularly. She also reports chronic dryness which could be related to her medications as well. She also has history of hypothyroidism which could lead to positive serologies sometimes. Patient does not have typical clinical features of an autoimmune disease like synovitis, typical rash (malar/discoid/gottron' s/heliotrope), objective muscle weakness, uveitis/scleritis, oral/nasal/genital ulcers, scarring alopecia, h/o organ involvement (nephritis, myopericarditis, hematological abnormalities, neuropathies, cerebritis etc) to suggest the presence of an underlying autoimmune disease. Likelihood of an autoimmune disease seems low however we will evaluate with the following labs and x-rays. Close follow-up to discuss results. Office Visit on 04/09/19 - XR HAND GENERAL 3V PA/LAT/OBL LT - XR HAND GENERAL 3V PA/LAT/OBL RT - XR FOOT GENERAL 3V AP/LAT/OBL LT - XR FOOT GENERAL 3V AP/LAT/OBL RT - XR SACROILIAC JOINTS 2V AP PELVIS/FERGUESON - XR LUMBAR LIMITED 2V AP/LAT - AJ BY IFA SCREEN - DNA ANTIBODY DS BLD - AUTO CLUB SAFETY PROGRAM COORDINATOR ANTIBODY BLOOD - ACEVEDO IGG AB - SJOGREN ABS SSA/SSB - RHEUMATOID FACTOR BL - CCP ANTIBODY IGG - CK CREATINE KINASE - VITAMIN D 25 HYDROXY - FERRITIN BLD - IRON + TIBC - UA WITH CULTURE IF INDICATED - CREATININE RANDOM UR - PROTEIN RANDOM UR - CBC + DIFF - COMP METABOLIC PANEL Medication orders placed this encounter aspirin, enteric coated (ASPIR-81) 81 mg EC tablet Sig: Take 81 mg by mouth once daily. atenolol (TENORMIN) 25 mg tablet Sig: Take 25 mg by mouth once daily. BUPROPION HCL ORAL Sig: Take 1,500 mg by mouth once daily. folic acid 1 mg tablet Sig: Take 400 mg by mouth once daily. levothyroxine (SYNTHROID) 50 mcg tablet Si mcg. Magnesium 250 mg tab Sig: Take 250 mg by mouth once daily. meloxicam (MOBIC) 7.5 mg tablet Sig: Take 7.5 mg by mouth once daily. metFORMIN ER (GLUMETZA) 500 mg 24 hr tablet Sig: Take 500 mg by mouth daily with breakfast. oxyCODONE-acetaminophen (PERCOCET) 5-325 mg tablet Sig: Take 1 tablet by mouth once daily. simvastatin (ZOCOR) 20 mg tablet Sig: Take 20 mg by mouth daily at bedtime. SYNTHROID 50 mcg tablet tiZANidine (ZANAFLEX) 4 mg tablet Sig: Take 4 mg by mouth once daily. Return in about 4 weeks (around 05/07/2019) for discuss lab results. Jackie Rojas MD Normal [facility] Rheumatoid Factoron 04-09-20 19 Rheumatoid Factor < 10.0 Normal 0.0-15.0 [facility] Comment on above: Performed By: #### R F1 #### [place] [address] Urinalysis, reflexon 019 Reflex Comment see below Normal [facility] Comment on above: Result Comment: Refl ex to culture is not indicated based on established laboratory criteria. Performed By: #### U RIN #### [place] [address] Bacteria LM.HPF (Urine sed) [#/Area] NONE Normal None [facility] Comment on above: Performed By: #### U RIN #### [facility] [address] [place] [address] Ep Cells Urine 0.8 /hpf Normal 0.0-5.0 [facility] Comment on above: Performed By: #### U RIN #### [place] [address] Hyaline Cast 0.7 /lpf Normal 0.0-1.0 [facility] Comment on above: Performed By: #### U RIN #### [facility] [address] [place] [address] RBC LM.HPF (Urine sed) [#/Area] 0.6 /[HPF] Normal 0.0-5.0 [facility] Comment on above: Performed By: #### U RIN #### [facility] [address] [place] [address] WBC, reflex 0.90 /hpf Normal 0.00-5.00 [facility] Comment on above: Performed By: #### U RIN #### [facility] [address] [place] [address] Appearance (U) CLEAR Normal [facility] Comment on above: Performed By: #### U RIN #### [place] [address] Bilirubin (U) [Mass/Vol] Negative Normal Negative [facility] Comment on above: Performed By: #### U RIN #### [place] [address] Color (U) YELLOW Normal [facility] Comment on above: Performed By: #### U RIN #### [place] [address] Glucose Ql (U) Negative Normal Negative [facility] Comment on above: Performed By: #### U RIN #### [place] [address] Hemoglobin,Urine Negative Normal Negative [facility] Comment on above: Performed By: #### U RIN #### [place] [address] Ketone Urine Negative Normal Negative [facility] Comment on above: Performed By: #### U RIN #### [place] [address] Leukocyte esterase Test strip Ql (U) TRACE Abnormal Negative [facility] Comment on above: Performed By: #### U RIN #### [place] [address] Nitrite reflex Negative Normal Negative [facility] Comment on above: Performed By: #### U RIN #### [place] [address] pH (U) 5.0 [pH] Normal 5.0-8.0 [facility] Comment on above: Performed By: #### U RIN #### [facility] [address] [place] [address] Protein (U) [Mass/Vol] Negative Normal Negative [facility] Comment on above: Performed By: #### U RIN #### [facility] [address] [place] [address] Specific [place], Ur 1.017 Normal 1.005-1.030 [facility] Comment on above: Performed By: #### U RIN #### [facility] [address] [place] [address] Urobilinogen,Ur 0.2 EU/dL Normal 0.2-1.0 [facility] Comment on above: Performed By: #### U RIN #### [facility] [address] [place] [address] Urine Proteinon 04-09-2019 Protein Ql (U) < 5.0 Normal 0.0-11.9 [facility] Comment on above: Performed By: #### U P #### [facility] [address] [place] [address] XR FOOT 3V AP/LAT/OBL LTon 0 04-09-2019 XR FOOT 3V AP/LAT/OBL LT * * *Final Report* * * DATE OF EXAM: Apr 09 2019 1:25PM [id number] [id number] - XR FOOT 3V AP/LAT/OBL LT / PROCEDURE REASON: Pain in joint, multiple sites * * * * Physician Interpretation * * * * EXAM TITLE: XR FOOT 3V AP/LAT/OBL LT, XR FOOT 3V AP/LAT/OBL RT DATE: 04/09/2019 INDICATION: Chronic multiple joint pain COMPARISON: None. FINDINGS: There appear to have been previous bunionectomies bilaterally. There is mild degenerative arthrosis at the first MTP joints. This is symmetric. Otherwise, there is no fracture or dislocation. There are no erosions. Joint spaces are otherwise maintained. Soft tissues appear normal. IMPRESSION: Postoperative changes. 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 Drawing Machine Operator: [email or web address] Transcribe Date/Time: Apr 12 2019 2:06P Dictated by : YANETH PATEL MD This examination was interpreted and the report reviewed and electronically signed by: YANETH PATEL MD on Apr 12 2019 2:08PM EST Normal [facility] XR FOOT 3V AP/LAT/OBL RTon 0 04-09-2019 XR FOOT 3V AP/LAT/OBL RT * * *Final Report* * * DATE OF EXAM: Apr 09 2019 1:25PM [id number] [id number] - XR FOOT 3V AP/LAT/OBL RT / PROCEDURE REASON: Pain in joint, multiple sites * * * * Physician Interpretation * * * * EXAM TITLE: XR FOOT 3V AP/LAT/OBL LT, XR FOOT 3V AP/LAT/OBL RT DATE: 04/09/2019 INDICATION: Chronic multiple joint pain COMPARISON: None. FINDINGS: There appear to have been previous bunionectomies bilaterally. There is mild degenerative arthrosis at the first MTP joints. This is symmetric. Otherwise, there is no fracture or dislocation. There are no erosions. Joint spaces are otherwise maintained. Soft tissues appear normal. IMPRESSION: Postoperative changes. 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 Drawing Machine Operator: [email or web address] Transcribe Date/Time: Apr 12 2019 2:06P Dictated by : YANETH PATEL MD This examination was interpreted and the report reviewed and electronically signed by: YANETH PATEL MD on Apr 12 2019 2:08PM EST Normal [facility] XR HAND 3V PA/LAT/OBL LTon 0 04-09-2019 XR HAND 3V PA/LAT/OBL LT * * *Final Report* * * DATE OF EXAM: Apr 09 2019 1:25PM [id number] - XR HAND 3V PA/LAT/OBL LT / PROCEDURE REASON: Pain in joint, multiple sites * * * * Physician Interpretation * * * * EXAM TITLE: XR HAND 3V PA/LAT/OBL LT, XR HAND 3V PA/LAT/OBL RT DATE: 04/09/2019 INDICATION: Chronic multiple joint pain COMPARISON: None. FINDINGS: There are no erosions. Joint spaces are symmetrically maintained. No fractures or dislocations are seen. There are no lytic lesions. Soft tissues are normal. There are no abnormal calcifications. IMPRESSION: Within normal limits. Drawing Machine Operator: [email or web address] Transcribe Date/Time: Apr 12 2019 2:04P Dictated by : YANETH PATEL MD This examination was interpreted and the report reviewed and electronically signed by: YANETH PATEL MD on Apr 12 2019 2:06PM EST Normal [facility] XR HAND 3V PA/LAT/OBL RTon 0 04-09-2019 XR HAND 3V PA/LAT/OBL RT * * *Final Report* * * DATE OF EXAM: Apr 09 2019 1:25PM [id number] - XR HAND 3V PA/LAT/OBL RT / PROCEDURE REASON: Pain in joint, multiple sites * * * * Physician Interpretation * * * * EXAM TITLE: XR HAND 3V PA/LAT/OBL LT, XR HAND 3V PA/LAT/OBL RT DATE: 04/09/2019 INDICATION: Chronic multiple joint pain COMPARISON: None. FINDINGS: There are no erosions. Joint spaces are symmetrically maintained. No fractures or dislocations are seen. There are no lytic lesions. Soft tissues are normal. There are no abnormal calcifications. IMPRESSION: Within normal limits. Drawing Machine Operator: [email or web address] Transcribe Date/Time: Apr 12 2019 2:04P Dictated by : YANETH PATEL MD This examination was interpreted and the report reviewed and electronically signed by: YANETH PATEL MD on Apr 12 2019 2:06PM EST Normal [facility] XR LUMBAR 2V AP/LATon 2018 XR LUMBAR 2V AP/LAT * * *Final Report* * * DATE OF EXAM: Apr 09 2019 1:25PM [id number] - XR LUMBAR 2V AP/LAT / PROCEDURE REASON: Pain in joint, multiple sites * * * * Physician Interpretation * * * * EXAM TITLE: XR LUMBAR 2V AP/LAT DATE: 04/09/2019 INDICATION: Chronic multiple joint pain COMPARISON: None. FINDINGS: There is mild scoliosis concave to the right. Laminectomy defects are noted at the lower lumbar spine. There is transpedicular fusion involving the lower 3 lumbar vertebrae. Multiple degenerative disc disease changes are noted. This is worst at L2-3. No acute fractures or dislocations are identified. In summary, a spinal stimulator is noted with the lead extending up towards the thoracic spine. IMPRESSION: Scoliosis, degenerative spondylosis, and postoperative changes. Drawing Machine Operator: [email or web address] Transcribe Date/Time: Apr 12 2019 2:09P Dictated by : YANETH PATEL MD This examination was interpreted and the report reviewed and electronically signed by: YANETH PATEL MD on Apr 12 2019 2:11PM EST Normal [facility] XR SI JTS 2V AP PELV/FERGUSO Non 04-09-2019 XR SI JTS 2V AP PELV/FINK * * *Final Report* * * DATE OF EXAM: Apr 09 2019 1:25PM [id number] - XR SI JTS 2V AP PELV/FINK / PROCEDURE REASON: Pain in joint, multiple sites * * * * Physician Interpretation * * * * EXAM TITLE: XR SI JTS 2V AP PELV/FINK DATE: 04/09/2019 INDICATION: Chronic multiple joint pain COMPARISON: None. FINDINGS: There is an orthopedic screw across the right sacroiliac joint. Some sclerosis at the right SI joint suggests degenerative arthritis. The left sacroiliac joint has a more normal appearance. There are no fractures or dislocations. No erosions are seen. There are lower lumbar postoperative changes. Soft tissues are otherwise unremarkable. IMPRESSION: Postoperative and degenerative changes at the right sacroiliac joint. Drawing Machine Operator: PSCB Transcribe Date/Time: Apr 12 2019 2:08P Dictated by : YANETH PATEL MD This examination was interpreted and the report reviewed and electronically signed by: YANETH PATEL MD on Apr 12 2019 2:09PM [facility] Office Visit: Annualon 07-25 Dietary management education, guidance, and counseling (procedure) yes Invalid Interpretation Code [facility] Documentation of current medications (procedure) Done Invalid Interpretation Code [facility] Tobacco smoking status NHIS Never Invalid Interpretation Code [facility] Tobacco use CPHS Never smoker Invalid Interpretation Code [facility] Lab Report: Basic Metabolic Profile (BMP)on 12-09-2016 Anion gap 10 mmol/L Invalid Interpretation Code 5-15 [facility] BUN/Creatinine Ratio 18.5 RATIO Invalid Interpretation Code 10-20 [facility] Calcium 8.9 mg/dL Invalid Interpretation Code 8.5-10.1 [facility] Chloride 98 mmol/L Invalid Interpretation Code 98-107 [facility] CO2 32.0 mmol/L Invalid Interpretation Code 21.0-32.0 [facility] Creatinine 0.81 mg/dL Invalid Interpretation Code 0.55-1.02 [facility] eGFR (non-black) 77 mL/min/{1.73_m2} Invalid Interpretation Code >60 [facility] eGFR (non-black) 93 mL/min/{1.73_m2} Invalid Interpretation Code >60 [facility] Glucose mass conc 121 mg/dL High 70-110 [facility] Potassium molar conc 4.3 mmol/L Invalid Interpretation Code 3.5-5.1 [facility] Sodium 140 mmol/L Invalid Interpretation Code 136-145 [facility] Urea nitrogen 15 mg/dL Invalid Interpretation Code 7-18 [facility] Lab Report: Lipaseon 017 LIPASE 157 U/L Invalid Interpretation Code 73-393 [facility] Lab Report: Liver Profileon 12-09-2016 Alanine aminotransferase (ALT) 58 U/L Invalid Interpretation Code 12-78 [facility] Albumin 3.7 g/dL Invalid Interpretation Code 3.4-5.0 [facility] Alkaline phosphatase (ALP) 87 U/L Invalid Interpretation Code 45-117 [facility] Aspartate aminotransferase (AST) 37 U/L Invalid Interpretation Code 15-37 [facility] Bilirubin (direct) 0.07 mg/dL Invalid Interpretation Code 0.00-0.30 [facility] Bilirubin (total) 0.30 mg/dL Invalid Interpretation Code 0.20-1.00 [facility] Globulin 3.5 g/dL Invalid Interpretation Code 2.3-3.5 [facility] Protein 7.2 g/dL Invalid Interpretation Code 6.4-8.2 [facility] Office Visit: RUQ pain, dila mary anne CBD, no GS on U/Son 12-09-2016 Fall risk assessment No Invalid Interpretation Code [facility] Office Visit: RUQ pain, dila mary anne CBD, no GS on U/Son 08-29-2015 Breast Mammogram screening Normal Bilateral Invalid Interpretation Code [facility] General categories [Interpretation] of Cervical or vaginal smear or scraping by Cyto stain Normal Invalid Interpretation Code [facility] No Panel Informationon 03-04 [facility] Vital Signs Date Time Vital Sign Value Performing Clinician Facility 09-06-2023 13:50-0500 Body temperature 97 [degF] Renita Thomae DO Work Phone: [facility] 09-06-2023 13:50-0500 Diastolic blood pressure 62 mm[Hg] Renita Thomae DO Work Phone: [facility] 09-06-2023 13:50-0500 Heart rate 59 /min Renita Thomae DO Work Phone: [facility] 09-06-2023 13:50-0500 Respiratory rate 16 /min Renita Thomae DO Work Phone: [facility] 09-06-2023 13:50-0500 SaO2% (BldA) [Mass fraction] 94 % Renita Thomae DO Work Phone: [facility] 09-06-2023 13:50-0500 Systolic blood pressure 111 mm[Hg] Renita Thomae DO Work Phone: [facility] 02-24-2023 15:16-0400 Body temperature 97.7 [degF] DR PJ MAHONEY MD [facility] 02-24-2023 15:16-0400 Diastolic Blood Pressure Non-Invasive [address] PJ MAHONEY MD [facility] 02-24-2023 15:16-0400 Heart rate 66 /min DR PJ MAHONEY MD [facility] 02-24-2023 15:16-0400 Reason For Taking VItal Signs DR PJ MAHONEY MD [facility] 02-24-2023 15:16-0400 Respiratory rate 16 /min DR PJ MAHONEY MD [facility] 02-24-2023 15:16-0400 Systolic Blood Pressure Non-Invasive [address] PJ MAHONEY MD [facility] 02-24-2023 11:13-0400 Body temperature 98.42 [degF] DR PJ MAHONEY MD [facility] 02-24-2023 11:13-0400 Diastolic Blood Pressure Non-Invasive [address] PJ MAHONEY MD [facility] 02-24-2023 11:13-0400 Heart rate 71 /min DR PJ MAHONEY MD [facility] 02-24-2023 11:13-0400 Reason For Taking VItal Signs DR PJ MAHONEY MD [facility] 02-24-2023 11:13-0400 Respiratory rate 16 /min DR PJ MAHONEY MD [facility] 02-24-2023 11:13-0400 Systolic Blood Pressure Non-Invasive [address] PJ MAHONEY MD [facility] 02-24-2023 09:07-0400 Heart rate 84 /min DR PJ MAHONEY MD [facility] 02-24-2023 08:58-0400 Diastolic Blood Pressure Non-Invasive [address] PJ MAHONEY MD [facility] 02-24-2023 08:58-0400 Systolic Blood Pressure Non-Invasive [address] PJ MAHONEY MD [facility] 02-24-2023 08:12-0400 Body temperature 97.88 [degF] DR PJ MAHONEY MD [facility] 02-24-2023 08:12-0400 Heart rate 74 /min DR PJ MAHONEY MD [facility] 02-24-2023 08:12-0400 Reason For Taking VItal Signs DR PJ MAHONEY MD [facility] 02-24-2023 08:12-0400 Respiratory rate 18 /min DR PJ MAHONEY MD [facility] 02-23-2023 22:43-0400 Heart rate 60 /min DR PJ MAHONEY MD [facility] 02-23-2023 20:04-0400 Heart rate 64 /min DR PJ MAHONEY MD [facility] 02-23-2023 14:32-0400 Heart rate 82 /min DR PJ MAHONEY MD [facility] 02-23-2023 11:40-0400 Heart rate 70 /min DR PJ MAHONEY MD [facility] 02-22-2023 14:40-0400 Body height 162.[address] PJ MAHONEY MD [facility] 02-22-2023 14:40-0400 Body weight [address] PJ MAHONEY MD [facility] 02-22-2023 14:40-0400 Body weight 41.61 kg/m2 DR PJ MAHONEY MD [facility] 02-22-2023 13:15-0400 Body temperature 96.26 [degF] DR PJ MAHONEY MD [facility] 02-22-2023 12:04-0400 Body temperature 97.7 [degF] DR PJ MAHONEY MD [facility] 02-22-2023 12:00-0400 Respiratory Rate - Anes 3 br/min DR PJ MAHONEY MD [facility] 02-22-2023 11:55-0400 Respiratory Rate - Anes 26 br/min DR PJ MAHONEY MD [facility] 02-22-2023 11:50-0400 Body temperature 96.84 [degF] DR PJ MAHONEY MD [facility] 02-22-2023 11:50-0400 Respiratory Rate - Anes 23 br/min DR PJ MAHONEY MD [facility] 02-22-2023 11:45-0400 Body temperature 96.85 [degF] DR PJ MAHONEY MD [facility] 02-22-2023 11:40-0400 Body temperature 96.89 [degF] DR PJ MAHONEY MD [facility] 02-22-2023 09:31-0400 Body height 162.[address] PJ MAHONEY MD [facility] 02-22-2023 09:31-0400 Body temperature 98.42 [degF] DR PJ MAHONEY MD [facility] 02-22-2023 09:31-0400 Body weight [address] PJ MAHONEY MD [facility] 02-03-2023 13:58-0400 [address] Pressure Cuff Size DR PJ MAHONEY MD [facility] 02-03-2023 13:58-[address] PJ MAHONEY MD [facility] 02-03-2023 13:58-[address] PJ MAHONEY MD [facility] 02-03-2023 13:58-0400 Body height 162.[address] PJ MAHONEY MD [facility] 02-03-2023 13:58-0400 Body weight [address] PJ MAHONEY MD [facility] 02-03-2023 13:58-0400 Body weight 41.61 kg/m2 DR PJ MAHONEY MD [facility] 02-03-2023 13:58-0400 Diastolic Blood Pressure Non-Invasive [address] PJ MAHONEY MD [facility] 02-03-2023 13:58-0400 Heart rate 73 /min [facility] [facility]23 13:58-0400 Systolic Blood Pressure Non-Invasive [address] PJ MAHONEY MD [facility] 09-17-2022 18:10-0500 Body temperature 98 [degF] Dr. Rica Padgett Work Phone: [facility] 09-17-2022 18:10-0500 Diastolic blood pressure 65 mm[Hg] Dr. Rica Padgett Work Phone: [facility] 09-17-2022 18:10-0500 Heart rate 75 /min Dr. Rica Padgett Work Phone: [facility] 09-17-2022 18:10-0500 Respiratory rate 16 /min Dr. Rica Padgett Work Phone: [facility] 09-17-2022 18:10-0500 SaO2% (BldA) [Mass fraction] 901 % Dr. Rica Padgett Work Phone: [facility] 09-17-2022 18:10-0500 Systolic blood pressure 119 mm[Hg] Dr. Rica Padgett Work Phone: [facility] 09-17-2022 11:45-0500 Body height 162.[address] Rica Padgett Work Phone: [facility] 09-17-2022 11:45-0500 Body weight 121.[address] Rica Padgett Work Phone: [facility] 09-16-2022 19:21-0500 Inhaled oxygen flow rate 2 L/min Dr. Rica Padgett Work Phone: [facility] 09-16-2022 19:15-0500 Body mass index (BMI) [Ratio] 46.1 kg/m2 Dr. Rica Padgett Work Phone: [facility] 09-13-2022 10:21-0500 Body mass index (BMI) [Ratio] 42.7 kg/m2 Dr. Rica Padgett Work Phone: [facility] 09-13-2022 10:21-0500 Body temperature 95.4 [degF] Dr. Rica Padgett Work Phone: [facility] 09-13-2022 10:21-0500 Body weight 116.[address] Rica Padgett Work Phone: [facility] 09-13-2022 10:21-0500 Diastolic blood pressure 80 mm[Hg] Dr. Rica Padgett Work Phone: [facility] 09-13-2022 10:21-0500 Heart rate 84 /min Dr. Rica Padgett Work Phone: [facility] 09-13-2022 10:21-0500 Respiratory rate 20 /min Dr. Rica Padgett Work Phone: [facility] 09-13-2022 10:21-0500 SaO2% (BldA) [Mass fraction] 90 % Dr. Rica Padgett Work Phone: [facility] 09-13-2022 10:21-0500 Systolic blood pressure 137 mm[Hg] Dr. Rica Padgett Work Phone: [facility] 05-19-2022 14:14-0400 Body temperature 95.3 [degF] Dr. Rica Padgett Work Phone: [facility] Work Phone: 05-19-2022 14:14-0400 Diastolic blood pressure 90 mm[Hg] Dr. Rica Padgett Work Phone: [facility] Work Phone: 05-19-2022 14:14-0400 Heart rate 81 /min Dr. Rica Padgett Work Phone: [facility] Work Phone: 05-19-2022 14:14-0400 Respiratory rate 20 /min Dr. Rica Padgett Work Phone: [facility] Work Phone: 05-19-2022 14:14-0400 SaO2% (BldA) [Mass fraction] 91 % Dr. Rica Padgett Work Phone: [facility] Work Phone: 05-19-2022 14:14-0400 Systolic blood pressure 156 mm[Hg] Dr. Rica Padgett Work Phone: [facility] Work Phone: 03-29-2022 09:18-0400 Body mass index (BMI) [Ratio] 42.9 kg/m2 Dr. Rica Padgett Work Phone: [facility] Work Phone: 03-29-2022 09:18-0400 Body temperature 96.3 [degF] Dr. Rica Padgett Work Phone: [facility] Work Phone: 03-29-2022 09:18-0400 Body weight 117.[address] Rica Padgett Work Phone: [facility] Work Phone: 03-29-2022 09:18-0400 Diastolic blood pressure 80 mm[Hg] Dr. Rica Padgett Work Phone: [facility] Work Phone: 03-29-2022 09:18-0400 Heart rate 80 /min Dr. Rica Padgett Work Phone: [facility] Work Phone: 03-29-2022 09:18-0400 Respiratory rate 20 /min Dr. Rica Padgett Work Phone: [facility] Work Phone: 03-29-2022 09:18-0400 SaO2% (BldA) [Mass fraction] 95 % Dr. Rica Padgett Work Phone: [facility] Work Phone: 03-29-2022 09:18-0400 Systolic blood pressure 162 mm[Hg] Dr. Rica Padgett Work Phone: [facility] Work Phone: 01-31-2022 03:58-0400 Diastolic blood pressure 82 mm[Hg] Dr. Rica Padgett Work Phone: [facility] Work Phone: 01-31-2022 03:58-0400 Heart rate 53 /min Dr. Rica Padgett Work Phone: [facility] Work Phone: 01-31-2022 03:58-0400 Respiratory rate 16 /min Dr. Rica Padgett Work Phone: [facility] Work Phone: 01-31-2022 03:58-0400 SaO2% (BldA) [Mass fraction] 98 % Dr. Rica Padgett Work Phone: [facility] Work Phone: 01-31-2022 03:58-0400 Systolic blood pressure 114 mm[Hg] Dr. Rica Padgett Work Phone: [facility] Work Phone: 01-30-2022 23:11-0400 Body height 162.[address] Rica Padgett Work Phone: [facility] Work Phone: 01-30-2022 23:11-0400 Body mass index (BMI) [Ratio] 42 kg/m2 Dr. Rica Padgett Work Phone: [facility] Work Phone: 01-30-2022 23:11-0400 Body temperature 97.9 [degF] Dr. Rica Padgett Work Phone: [facility] Work Phone: 01-30-2022 23:11-0400 Body weight 111.[address] Rica Padgett Work Phone: [facility] Work Phone: 01-25-2022 15:13-0400 Diastolic blood pressure 89 mm[Hg] Dr. Rica Padgett Work Phone: [facility] Work Phone: 01-25-2022 15:13-0400 Heart rate 78 /min Dr. Rica Padgett Work Phone: [facility] Work Phone: 01-25-2022 15:13-0400 Respiratory rate 18 /min Dr. Rica Padgett Work Phone: [facility] Work Phone: 01-25-2022 15:13-0400 SaO2% (BldA) [Mass fraction] 97 % Dr. Rica Padgett Work Phone: [facility] Work Phone: 01-25-2022 15:13-0400 Systolic blood pressure 143 mm[Hg] Dr. Rica Padgett Work Phone: [facility] Work Phone: 01-25-2022 12:56-0400 Body height 162.[address] Rica Padgett Work Phone: [facility] Work Phone: 01-25-2022 12:56-0400 Body mass index (BMI) [Ratio] 42.9 kg/m2 Dr. Rica Padgett Work Phone: [facility] Work Phone: 01-25-2022 12:56-0400 Body temperature 98.2 [degF] Dr. Rica Padgett Work Phone: [facility] Work Phone: 01-25-2022 12:56-0400 Body weight 113.[address] Rica Padgett Work Phone: [facility] Work Phone: 09-25-2021 14:30-0500 Body temperature 98.5 [degF] Dr. Rica Padgett Work Phone: [facility] Work Phone: 09-25-2021 14:30-0500 Diastolic blood pressure 78 mm[Hg] Dr. Rica Padgett Work Phone: [facility] Work Phone: 09-25-2021 14:30-0500 Heart rate 68 /min Dr. Rica Padgett Work Phone: [facility] Work Phone: 09-25-2021 14:30-0500 Respiratory rate 16 /min Dr. Rica Padgett Work Phone: [facility] Work Phone: 09-25-2021 14:30-0500 SaO2% (BldA) [Mass fraction] 93 % Dr. Rica Padgett Work Phone: [facility] Work Phone: 09-25-2021 14:30-0500 Systolic blood pressure 144 mm[Hg] Dr. Rica Padgett Work Phone: [facility] Work Phone: 09-25-2021 09:44-0500 Body height 162.[address] Rica Padgett Work Phone: [facility] Work Phone: 09-25-2021 09:44-0500 Body mass index (BMI) [Ratio] 42.9 kg/m2 Dr. Rica Padgett Work Phone: [facility] Work Phone: 09-25-2021 09:44-0500 Body weight 113.[address] Rica Padgett Work Phone: [facility] Work Phone: 05-22-2021 01:30-0400 Diastolic blood pressure 66 mm[Hg] Rica Padgett Other Phone: [facility] 05-22-2021 01:30-0400 Heart rate 72 /min Rica Padgett Other Phone: [facility] 05-22-2021 01:30-0400 Respiratory rate 16 /min Rica Padgett Other Phone: [facility] 05-22-2021 01:30-0400 SaO2% (BldA) [Mass fraction] 96 % Rica Padgett Other Phone: [facility] 05-22-2021 01:30-0400 Systolic blood pressure 138 mm[Hg] Rica Padgett Other Phone: [facility] 05-21-2021 22:35-0400 Body height 162.5 cm Rica Padgett Other Phone: [facility] 05-21-2021 22:35-0400 Body temperature 97.16 [degF] Rica Malys Other Phone: [facility] 05-21-2021 22:35-0400 Body weight 109.3 kg Rica Malys Other Phone: [facility] 02-13-2021 05:12-0400 Diastolic blood pressure 73 mm[Hg] Rica Malys Other Phone: [facility] 02-13-2021 05:12-0400 Heart rate 55 /min Rica Malys Other Phone: [facility] 02-13-2021 05:12-0400 Respiratory rate 18 /min Rica Malys Other Phone: [facility] 02-13-2021 05:12-0400 SaO2% (BldA) [Mass fraction] 92 % Rica Malys Other Phone: [facility] 02-13-2021 05:12-0400 Systolic blood pressure 143 mm[Hg] Rica Malys Other Phone: [facility] 02-13-2021 02:01-0400 Body temperature 97.16 [degF] Rica Malys Other Phone: [facility] 07-25-2017 14:03-0500 BMI (Body Mass Index) 39.79 kg/m2 Azra Gee NP [facility] 07-25-2017 14:03-0500 BP Diastolic 78 mm[Hg] Azra Gee [employer] 07-25-2017 14:03-0500 BP Systolic 128 mm[Hg] Azra Gee NP [facility] 07-25-2017 14:03-0500 Height 161.93 cm Azra Gee NP [facility] 07-25-2017 14:03-0500 Weight 104.33 kg Azra Gee NP [facility] 12-09-2016 11:09-0400 Body Temperature 98 [degF] Azra Gee [employer] 12-09-2016 11:090400 BSA (Body Surface Area) 2.11 m2 Azra Gee NP [facility] 12-09-2016 11:090400 Pulse (Heart Rate) 86 /min Azra Gee NP [facility] 12-09-2016 11:090400 Respiratory Rate 18 /min Azra Gee [facility] Encounters Encounter Date Encounter Type Care Provider Facility Start: 02-09-2025 ambulatory Rafi Berry Facilit y:[facility] Start: 02-04-2025 ambulatory Rica Malwinston Facility:[facility] Start: 01-07-2025 End: 01-07-2025 ambulatory Pj Lee Facility:[facility] Start: 01-03-2025 End: 01-03-2025 ambulatory Rafi Berry Facility:[facility] Start: 11-29-2024 ambulatory Matt Oglesby [facility] Start: 11-29-2024 End: 11-29-2024 ambulatory Deuce Shaw Facility:[facility] Start: 11-20-2024 End: 11-20-2024 Emergency department patient visit Tre Flores Facility:[facility] Start: 11-19-2024 End: 11-19-2024 ambulatory Marissa Joseph Facility:[facility] Start: 10-15-2024 End: 10-15-2024 Emergency department patient visit Rm Keating Facility:[facility] Start: 10-12-2024 End: 10-12-2024 Emergency department patient visit Uday Stokes Facility:[facility] Start: 10-08-2024 End: 10-08-2024 ambulatory Marissa Joseph Facility:[facility] Start: 09-03-2024 End: 09-03-2024 ambulatory Pj Lee Facility:[facility] Start: 07-27-2024 End: 07-28-2024 ambulatory Rica Malwinston Facility:[facility] Start: 07-13-2024 End: 07-13-2024 ambulatory Rica Malys Facility:[facility] Start: 06-06-2024 End: 06-06-2024 ambulatory Rica Malys Facility:[facility] Start: 06-01-2024 End: 06-01-2024 ambulatory Rica Malys Facility:[facility] Start: 05-14-2024 ambulatory Rica Malys [facility] Start: 05-07-2024 End: 05-07-2024 ambulatory Rica Malys Facility:[facility] Start: 04-02-2024 End: 04-02-2024 ambulatory Rica Lorin Facility:[facility] Start: 02-20-2024 ambulatory Racquel Gates Facility:[facility] Start: 02-20-2024 End: 03-04-2024 Evaluation and management of inpatient Rafi Berry Facility:[facility] Start: 02-17-2024 ambulatory Rafi Berry Facilit y:[facility] Start: 02-17-2024 End: 02-20-2024 Evaluation and management of inpatient Rafi Berry Facility:[facility] Start: 11-03-2023 Telephone encounter Yovanny Rogers i, MD Work Phone: [facility] Comment on above: Referral (Confirm re ceipt of referral faxed 11/01/23) Start: 09-06-2023 End: 09-07-2023 ambulatory RENITA R [facility] Start: 09-06-2023 End: 09-06-2023 Subsequent hospital visit by physician Renita Mijares DO Work Phone: [facility] Comment on above: Diarrhea, unspecifie d type (Primary Dx) Start: 02-22-2023 End: 02-24-2023 ambulatory PJ MAHOENY Facility:[facility] Start: 02-22-2023 End: 02-24-[address] PJ MAHONEY MD [facility] Start: 02-03-2023 End: 02-04-2023 ambulatory PJ MAHONEY Facility:[facility] Start: 02-03-2023 End: 02-04-2023 ambulatory PJ MAHONEY Facility:[facility] Start: 02-03-2023 End: 02-03-[address] PJ MAHONEY MD [facility] [place] Start: 02-03-2023 End: 02-03-[address] PJ MAHONEY MD [facility] [place] Start: 10-06-2022 Telephone encounter Tre Ford ese-Myke Anderson DO Work Phone: [facility] Comment on above: Page Out Start: 09-27-2022 Orders Only Nicolás Swenson Work Phone: Orthopaedics Comment on above: 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 Rica Padgett Work Phone: [facility] Work Phone: Start: 09-20-2022 End: 09-20-[address] Rica Padgett Work Phone: [facility]-Laboratory Start: 09-17-2022 Non-patient / Non-visit Dr. Angela Padgett Work Phone: [facility] Start: 09-17-2022 Non-patient / Non-visit Dr. Angela Padgett Work Phone: [facility] Start: 09-16-2022 Non-patient / Non-visit Dr. Angela Padgett Work Phone: [facility] Start: 09-16-2022 End: 09-17-2022 Evaluation and management of inpatient Dr. Rica Padgett Work Phone: [facility]-Medical Surgical 3 Start: 09-15-2022 End: 09-15-[address] Rica Padgett Work Phone: [facility] Work Phone: Start: 09-15-2022 End: 09-15-[address] Rica Padgett Work Phone: [facility]-Cardiovascular Services Start: 09-13-2022 End: 09-13-[address] Rica Padgett Work Phone: [facility]ocr[facility] Start: 07-07-2022 End: 07-07-[address] Rica Padgett Work Phone: [facility] Work Phone: Start: 07-07-2022 End: 07-07-[address] Rica Padgett Work Phone: [facility] Start: 06-23-2022 Telephone encounter Nicolás velazquez MD Work Phone: Orthopaedics Comment on above: Question Start: 05-19-2022 End: 05-19-[address] Rica Padgett Work Phone: [facility] Start: 05-19-2022 End: 05-19-2022 ambulatory NICOLÁS AGGARWAL Facility:[facility] Start: 05-19-2022 End: 05-19-2022 Patient encounter procedure Nicolás Aggarwal MD Work Phone: Orthopaedics Comment on above: Pes planus of left f oot (Primary Dx); Primary osteoarthritis of left foot; Diabetic neuropathy, painful (HCC); Acquired valgus deformity of left ankle Start: 05-19-2022 End: 05-19-2022 Subsequent hospital visit by physician Xr [facility] Work Phone: Radiology Comment on above: Pain [R52] Start: 03-29-2022 End: 03-29-[address] Rica Padgett Work Phone: [facility] Start: 01-30-2022 End: 01-31-2022 Emergency department patient visit Dr. Rica Padgett Work Phone: [facility]-Emergency Department Start: 01-25-2022 End: 01-25-2022 Emergency department patient visit Dr. Rica Padgett Work Phone: [facility]Emergency Department Start: 11-12-2021 End: 11-12-[address] Rica Padgett Work Phone: [facility] Start: 11-11-2021 End: 11-11-[address] Rica Padgett Work Phone: [facility] Start: 11-10-2021 End: 11-10-[address] Rica Padgett Work Phone: [facility]-Pre-Admission Testing Start: 11-10-2021 Non-patient / Non-visit Dr. Angela Padgett Work Phone: [facility] Start: 09-25-2021 End: 09-25-2021 Admission to same day surgery center Dr. Rica Padgett Work Phone: [facility]Surgical Day Care Start: 08-07-[address] Rica Padgett Work Phone: [facility] Start: 05-21-2021 End: 05-22-2021 Emergency department patient visit Silvana [facility] Emergency 11 Start: 02-13-2021 End: 02-13-2021 Emergency department patient visit Jesus Amezquita [facility] Emergency 11 Start: 02-08-2020 End: 02-08-2020 Patient encounter procedure PB DRUMMOND [facility] Start: 02-07-2015 End: 02-07-2015 Telephone encounter Azra Gee Work Phone: OB/Gynecology Comment on above: Yearly Exam With Jermaine mogram Procedures Date Procedure Procedure Detail Performing Clinician Start: 09-06-2023 DISCHARGE PATIENT RENITA MIJARES Start: 09-06-2023 PLACE IN OUTPATIENT/HOSPITAL AMBULATORY SURGERY RENITA MIJARES Start: 09-06-2023 PULSE OXIMETRY, SPOT DA NAKIA MIJARES Start: 09-06-2023 Colon ca scrn not hi rsk ind Renita Mijares DO Work Phone: Start: 09-06-2023 PULSE OXIMETRY, SPOT Da nakia Mijares DO Work Phone: Start: 09-06-2023 Colonoscopy Renita hylton DO Work Phone: Start: 02-22-[address] PJ MAHONEY MD Comment on above: ROBOTIC ASSISTED RIG HT TOTAL KNEE Start: 10-01-2022 Lipid 1996 panel - S alanna or Plasma Tre Anderson DO Work Phone: Start: 10-01-2022 Thyrotropin [Units/v olume] in Serum or Plasma Tre Braneri DO Work Phone: Start: 09-16-2022 CT angiography of ch est with contrast Dr. Rica Padgett Work Phone: Start: 05-19-2022 Radex foot complete minimum 3 views Nicolás Aggarwal MD Work Phone: Start: 01-25-2022 CT angiography of ch est with contrast Dr. Rica Padgett Work Phone: Start: 01-25-2022 SARS-CoV-2 & FLU Ant igen (Rapid) Dr. Rica Padgett Work Phone: Start: 01-25-2022 Plain chest X-ray Dr. Félix Padgett Work Phone: Start: 11-12-2021 CT angiography of ch est with contrast Dr. Rica Padgett Work Phone: Start: 11-12-[address] Rica Padgett Work Phone: Start: 11-11-2021 MRI of lower extremity Dr. Rica Padgett Work Phone: Start: 11-10-2021 Nasal Screen MRSA/MSSA Dr. Rica Padgett Work Phone: Start: 11-10-2021 Plain chest X-ray Dr. Félix Padgett Work Phone: Start: 09-25-2021 Insertion of infusion pump Dr. Rica Padgett Work Phone: Start: 05-22-2019 Colonoscopy Tre figueroa DO Work Phone: Start: 07-25-2017 End: 07-25-2017 Pelvic & Breast Exam (Medicare) Azra Gee CLOTH COVERER Work Phone: Start: 12-09-2016 End: 12-09-2016 *BMP Hanna Urbano MD Work Phone: Start: 12-09-2016 End: 12-10-2016 *Hepatic Function Panel Hanna vargas MD Work Phone: Start: 12-09-2016 End: 12-09-2016 Lipase [Enzymatic activity/volume] in Serum or Plasma Hanna Urbano MD Work Phone: Start: 03-22-2016 Mammography Azra mcfarland Work Phone: Start: 03-04-2015 MAMMOGRAM SCREENING BAM Azra Gee Work Phone: Start: 03-19-2003 Colonoscopy Azra mcfarland Work Phone: Decompression of med inderjit nerve DR PJ MAHONEY MD Comment on above: BILATERAL Excision of bunion DR PJ MAHONEY MD Comment on above: BILATERAL Fusion of lumbosacra l region of spine by posterior approach DR PJ MAHONEY MD Hysterectomy DR PJ Florian MD Ligation of fallopian tube D R PJ MAHONEY MD Plantar fasciectomy DR STEPHEN MAHONEY MD Comment on above: LEFT Pump, device (physic al object) DR PJ MAHONEY MD Comment on above: PAIN PUMP SARS-CoV-2 & FLU Ant igen (Rapid) Dr. Rica Padgett Work Phone: Tonsillectomy and adenoidectomy DR PJ MAHONEY MD Total knee replacement DR CHRIST DAVIS Comment on above: LEFT Plan of Treatment Date Care Activity Detail Author Start: 09-03-2033 Screening for malign ant neoplasm of colon [facility] Start: 05-22-2029 Screening for malign ant neoplasm of colon [facility] Start: 10-05-2025 Diabetes mellitus screening Diabetes Screening [facility] Start: 10-05-2023 Hemoglobin A1c measurement Diabetes: Hemoglobin A1C [facility] Start: 10-01-2023 Lipid panel Lipid Panel [facility] Start: 10-01-2023 Thyroid stimulating hormone measurement TSH Level [facility] Start: 08-29-2023 Medicare Advantage A nnual Wellness Visit Medicare Advantage Annual Wellness Visit [facility] Start: 08-05-2023 COVID-19 Vaccine (4 - Pfizer series) COVID-19 Vaccine (4 - Pfizer series) [facility] Start: 2023 Advance Directive Discussion Advance Directive Discussion [facility] Start: 2023 Bone Density Screening Bone Density Screening [facility] Start: 2023 Pneumococcal Vaccine : 65+ Years (2 of 2 - PCV) Pneumococcal Vaccine: 65+ Years (2 of 2 - PCV) [facility] Start: 04-29-2023 COVID-19 Vaccine ( season) COVID-19 Vaccine ( season) [facility] Start: 04-29-2023 Influenza vaccination Influenza Vacc ine (#1) [facility] Start: 04-01-2023 Depresssion Monitoring Depresssion M onitoring [facility] Start: 01-02-2023 Hemoglobin A1c measurement Diabetes: Hemoglobin A1C [facility] Start: 09-17-2022 Patient discharge [facility] Start: 09-16-2022 Ambulation without limitation [facility] Start: 09-16-2022 Assessment of risk o f venous thromboembolism [facility] Start: 09-16-2022 Care regimes management [facility] Start: 09-16-2022 Catheterization of vein [facility] Start: 09-16-2022 Continuous positive airway pressure ventilation treatment [facility] Start: 09-16-2022 Insertion of cathete r into peripheral vein [facility] Start: 09-16-2022 Notification of physician [facility] Start: 09-16-2022 Oxygen therapy [facility] Start: 09-16-2022 Providing care accor ding to standard [facility] Start: 09-16-[address] [facility] Start: 09-16-2022 Admission procedure [facility] Start: 09-16-2022 Following clinical pathway protocol [facility] Start: 09-16-2022 Patient referral to dietitian [facility] Start: 08-29-2022 DEPRESSION ASSESSMENT DEPRESSION ASS ESSMENT [facility] Start: 04-29-2022 Influenza vaccination INFLUENZA (#1) [facility] Start: 04-09-2022 DIABETES SCREEN DIABETES SCREEN [facility] Start: 09-25-2021 Anesthesia lumbar re gion nos ANESTH SPINE CORD SURGERY [facility] Work Phone: Start: 09-25-2021 Impltj/rplcmt ithcl/ edrl drug nfs prgrbl pump IMPLANT SPINE INFUSION PUMP [facility] Work Phone: Start: 08-29-2021 DEPRESSION ASSESSMENT DEPRESSION ASS ESSMENT [facility] Start: 04-29-2021 Influenza vaccination INFLUENZ A (Season Ended) [facility] Start: 04-09-2020 Hepatitis B screening URINE ALBUMIN:CREATININE RATIO [facility] Start: 2018 Hepatitis B Vaccine (1 of 3 - Risk 3-dose series) Hepatitis B Vaccine (1 of 3 - Risk 3-dose series) [facility] Start: 2018 RSV Immunization age d 60 or older (1 - 1-dose 60+ series) RSV Immunization aged 60 or older (1 - 1-dose 60+ series) [facility] Start: 07-25-2017 End: 07-25-2017 Appointment Appointment [facility] Start: 03-22-2017 Mammography [facility] Start: 12-09-2016 End: 12-09-2016 *BMP *BMP [facility] Start: 12-09-2016 End: 12-10-2016 *Hepatic Function Panel *Hepatic Function Panel [facility] Start: 12-09-2016 End: 12-09-2016 Ct abdomen & pelvis w/contrast material CT Abdomen/pelvis; with contrast [facility] Start: 12-09-2016 End: 12-10-2016 Follow Up after Imaging/labs Follow Up after Imaging/labs [facility] Start: 12-09-2016 End: 12-09-2016 Lipase *Lipase [facility] Start: 12-08-2015 End: 12-08-2015 *CBC with Differential *CBC with Differential [facility] Start: 12-08-2015 End: 12-08-2015 *CMP Complete Metabolic Panel *CMP Complete Metabolic Panel [facility] Start: 12-08-2015 End: 12-08-2015 *PROTS Protein S Defic. Profile [id number] *PROTS Protein S Defic. Profile [id number] [facility] Start: 12-08-2015 End: 12-08-2015 *UA - Urinalysis w/o Micro *UA - Urinalysis w/o Micro [facility] Start: 12-08-2015 End: 12-08-2015 Antithrombin actual/normal in Platelet poor plasma by Chromogenic method *AT3 - Antithrombin 3 Activity [id number] [facility] Start: 12-08-2015 End: 12-08-2015 Cardiolipin Antibodies (IgA IgG IgM) Cardiolipin Antibodies (IgA IgG IgM) [facility] Start: 12-08-2015 End: 12-08-2015 Clotting inhibitors protein c activity Protein C Activity [facility] Start: 12-08-2015 End: 12-08-2015 Ct thorax w/contrast material CT Chest with Contrast [facility] Start: 12-08-2015 End: 12-08-2015 Factor V (Leiden) Mutation Analysis Factor V (Leiden) Mutation Analysis [facility] Start: 12-08-2015 End: 12-08-2015 Lipid panel [AGGREGATE] *Lipid Profile [facility] Start: 12-08-2015 End: 12-08-2015 Thyroid stimulating hormone (TSH) *TSH [facility] Start: 12-08-2015 End: 12-08-2015 Urine, microalbumin *Urine, Microalbumin [facility] Start: 07-29-2015 LIPID SCREEN LIPID SCREEN [facility] Start: 02-26-2014 Screening for malign ant neoplasm of colon SIGMOIDOSCOPY [facility] Start: 02-26-2014 SIGMOIDOSCOPY SIGMOIDOSCOPY [facility] Start: 03-19-2013 Colonoscopy COLONOSCOPY [facility] Start: 03-19-2013 COLORECTAL CANCER SCREENING COLORECTAL CANCER SCREENING [facility] Start: 03-19-2013 Screening for malign ant neoplasm of colon [facility] Start: 07-03-2011 Hemoglobin A1c/Hemoglobin.total in Blood HBA1C [facility] Start: 2008 Screening for malign ant neoplasm of colon [facility] Start: 2008 SHINGRIX VACCINE (1 of 2) ROMAN GRIX VACCINE (1 of 2) [facility] Start: 2003 COLOGUARD (FIT-DNA) COLOGUARD (FIT-D NA) [facility] Start: [address] COLONOGRAPHY [facility] Start: 2003 FECAL OCCULT BLOOD FECAL OCCULT BLOO D [facility] Start: 1998 Screening for malign ant neoplasm of breast Mamm[facility] Start: 1988 Screening for malign ant neoplasm of cervix [facility] Start: 1980 DTaP/Tdap/Td Vaccine s (1 - Tdap) DTaP/Tdap/Td Vaccines (1 - Tdap) [facility] Start: 1979 Screening for malign ant neoplasm of cervix [facility] Start: 1977 DTaP/Tdap/Td Vaccine s (1 - Tdap) DTaP/Tdap/Td Vaccines (1 - Tdap) [facility] Start: 1977 Urine microalbumin profile [facility] Start: 1977 Urine screening for protein Diabetes: Urine Protein Screening [facility] Start: 1976 ANNUAL PCP TEAM STAGE DIRECTOR DYLAN DISEASE VISIT ANNUAL PCP TEAM CHRONIC DISEASE VISIT [facility] Start: 1976 Hepatitis B surface antibody level LDL CHOLESTEROL [facility] Start: 1976 HEPATITIS C SCREENING HEPATITIS C [facility] Start: 1976 Hepatitis C screening Hepatitis C [facility] Start: 1976 HIV SCREENING HIV SCREENING [facility] Start: 1970 Adult depression screening assessment DEPRESSION SCREENING [facility] Start: 1968 3 comp foot exam completed DIABETIC FOOT EXAM [facility] Start: 1968 Diabetic foot examination Diabetes: Foot Exam [facility] Start: 1968 Glaucoma screening Diabetes: R etinopathy Screening [facility] Start: 1968 Hepatitis B screening Urine Albumin:Creatinine Ratio [facility] Start: 1968 Hepatitis C antibody , confirmatory test DILATED RETINAL EXAM [facility] Start: 1968 Preventive dental service Diabetes: Dental Exam [facility] Start: 1964 PNEUMOCOCCAL (1 - PCV) PNEUMOCOCCAL (1 - PCV) [facility] Start: 1964 Pneumococcal Vaccine : 65+ (1 - PCV) Pneumococcal Vaccine: 65+ (1 - PCV) [facility] Start: 1959 MMR Vaccines (1 of 1 - Standard series) MMR Vaccines (1 of 1 - Standard series) [facility] Start: 1958 COVID-19 VACCINE (#1) COVID-19 VACCI NE (#1) [facility] Start: 1958 Annual wellness visit Medicare Initial Physical (IPPE) [facility] Start: 1958 Hepatitis B Vaccines (1 of 3 - 3-dose series) Hepatitis B Vaccines (1 of 3 - 3-dose series) [facility] Start: 1958 HIV screening HIV Screening [facility] Start: 1958 Lipid panel Lipid Panel [facility] Start: 1958 Screening for malign ant neoplasm of colon [facility] Start: 1958 Screening for osteoporosis Bone Density Scan [facility] Start: 1958 Thyroid stimulating hormone measurement TSH Level [facility] End: 09-06-2023 Moderate Sedation Moderate Sedation Procedures Routine Once for 1 Occurrences starting 09/06/2023 until 09/06/2023 [facility] Service Area Work Phone: Comment on above: Once for 1 Occurrenc es starting 09/06/2023 until 09/06/2023 Patient Education [facility] Patient referral [facility] Work Phone: End: 10-27-2023 XR ANKLE GENERAL 3V AP/LAT/OBL LEFT XR ANKLE GENERAL 3V AP/LAT/OBL LEFT Radiology Routine Acquired valgus deformity of left ankle 1 Occurrences starting 09/28/2022 until 10/27/2023 [facility] Work Phone: Comment on above: 1 Occurrences starti ng 09/28/2022 until 10/27/2023 [facility] Immunizations Immunization Date Immunization Notes Care Provider Mikayla ruiz 06-16-2022 influenza virus vaccine, unspecified formulation Yovanny Landis MD Work Phone: [facility] 06-25-2018 influenza virus vaccine, unspecified formulation Xr Rej Work Phone: [facility] 05-29-2015 influenza, seasonal, injectable Dr. Rica Padgett Work Phone: [facility] 06-29-[address] Rica Padgett Work Phone: [facility] 07-26-2012 influenza virus vaccine, unspecified formulation Azra Gee Work Phone: [facility] 05-13-[address] Danya Padgett Work Phone: [facility] Work Phone: 05-13-2012 pneumococcal vaccine , unspecified formulation Dr. Rica Padgett Work Phone: [facility] NEGATED: Highlighted row has not occurred!10-03-2022 Influenza, injectable, Madin Macrina Canine Kidney, preservative free, quadrivalent Tre Anderson DO Work Phone: [facility] Comment on above: Deferred: Patient Re fused Payers Date Payer Category Payer Self-pay [id number] 2022 [employer] ( and others) [id number] 2022 [employer] ( and others) [id number] 2022 Private Health Insurance [id number] 2022 Medicare [id number] 2017 Unknown [id number] 2013 [employer] ( and others) [id number] 2013 Unknown FOR LIFE [id number] 2013-Present Indemnity [id number] 2007 Medicare MEDICARE MEDICAR E B [id number] 2007-2016 [place] [id number] 2007 Medicare [id number] 2004 Medicare [id number] 2004 Medicare MEDICARE MEDICAR E A AND B [id number] 2004-Present [place] Medicare [id number] .[id number] 2004 Unknown 1958 Unknown [id number] 2.16.840.1.654946.3.579.2 .651 1958 Unknown [id number] 2.16.840.1.097280.3.579.2 .62 1958 Unknown [id number] 2.16.840.1.733102.3.579.2 .627 1958 Unknown [id number] 2.16.840.1.462450.3.579.2 .627 1958 Unknown [id number] 2.16.840.1.467273.3.579.2 .1243 Unknown [id number] 2.16.840.1.709859.3.579.2 .462 Unknown [id number] 2.16.840.1.907423.3.579.2 .462 Unknown [id number] 2.16.840.1.845336.3.579.2 .462 Unknown [id number] 2.16.840.1.798004.3.579.2 .462 Unknown [id number] 2.16.840.1.358481.3.579.2 .462 Unknown [id number] 2.16.840.1.623172.3.579.2 .462 Unknown [id number] 2..840.1.755623.3.579.2 .462 Unknown [id number] 2.840.1.627130.3.579.2 .462 Unknown [id number] 2.840.1.755453.3.579.2 .462 Unknown [id number] 2.840.1.438315.3.579.2 .462 Unknown [id number] 2.840.1.387358.3.579.2 .462 Unknown [id number] 2.840.1.185445.3.579.2 .462 Unknown [id number] 2..840.1.266617.3.579.2 .462 Unknown [id number] 2.840.1.187848.3.579.2 .462 Unknown [id number] 2.840.1.736559.3.579.2 .462 Unknown [id number] 2.840.1.971159.3.579.2 .462 Unknown [id number] 2.840.1.513921.3.579.2 .462 Unknown [id number] 2..840.1.317856.3.579.2 .462 Unknown [id number] 2.840.1.266041.3.579.2 .462 Unknown [id number] 2.840.1.121739.3.579.2 .462 Unknown [id number] 2.16.840.1.639448.3.579.2 .462 Unknown [id number] 2.16.840.1.565722.3.579.2 .462 Unknown [id number] 2.16.840.1.804768.3.579.2 .462 Unknown [id number] 2.16.840.1.314164.3.579.2 .462 Unknown [id number] 2.16.840.1.545908.3.579.2 .462 Unknown [id number] 2.16.840.1.441049.3.579.2 .462 Unknown [id number] 2.16.840.1.366116.3.579.2 .462 Unknown [id number] 2.16.840.1.960412.3.579.2 .462 Social History Date Type Detail Facility Start: 03-06-2011 End: 09-21-2012 Tobacco smoking status [facility] Former smoker [facility] Work Phone: Comment on above: quit in 1993 End: 03-21-1994 History of tobacco use Current smoker [facility] Start: 09-21-2012 End: 09-06-2023 Tobacco use and exposure Never used [facility] Start: 09-21-2012 Alcohol intake Current non-dr counterperson of alcohol (finding) [facility] Start: 1960 Sex Assigned At Not on file C [facility] Start: 11-10-2021 End: 09-16-2022 Tobacco smoking consumption unknown [facility] Start: 08-11-[address] [facility] Start: 08-11-[address] [facility] Start: 12-08-2020 Spouse/ Signif icant Other [facility] Start: 05-18-2019 Non-smoker [facility] Start: 1960 Sex Assigned At Female W [facility] End: 03-21-1994 History of tobacco use Cigarette Smoker [facility] Work Phone: Start: 04-13-2022 Alcohol intake Current drinke r of alcohol (finding) [facility] Start: 04-09-2019 History SDOH Alcohol Comment rarely [facility] Start: 05-09-2022 End: 09-06-2023 Exposure to SARS-CoV-2 (event) Not sure [facility] Start: 02-03-2023 End: 09-06-2023 Tobacco smoking status Never smoked tobacco (finding) [facility] Sex Assigned At Sex [facility] Start: 04-13-2022 End: 10-02-2022 History of Social function [facility] Start: 04-13-2022 End: 10-02-2022 Tobacco use panel [facility] National Score (1-10 0), lower number is lower risk Not on file [facility] Start: 09-06-2023 Alcohol intake Lifetime non-d sue (finding) [facility] Work Phone: Within the last year , have you been afraid of your partner or ex-partner? No [facility] How often to you hav e a drink containing alcohol? Monthly or less [facility] How many standard drinks containing alcohol do you have on a typical day? 1 or 2 [facility] How often do you hav e 6 or more drinks on 1 occasion? Never [facility] Start: 10-04-2022 Sexual orientation Heterosexual (romel salcido) [facility] Start: 10-02-2022 History SDOH Alcohol Frequency 2 [facility] Start: 10-02-2022 History SDOH Alcohol Std Drinks 1 [facility] Medical Equipment Procedure Code Equipment Code Equipment Origin al Text Equipment Identifier Dates Insertion, infusion pump, for analgesia programmable pump, synchromed FDA Start: 09-25-2021 Insertion, infusion pump, for analgesia programmable pump, synchromed FDA Start: 09-25-2021 Insertion, infusion pump, for analgesia programmable pump, synchromed FDA Start: 09-25-2021 Insertion, infusion pump, for analgesia programmable pump, synchromed FDA Start: 09-25-2021 Insertion, infusion pump, for analgesia programmable pump, synchromed FDA Start: 09-25-2021 Insertion, infusion pump, for analgesia programmable pump, synchromed FDA Start: 09-25-2021 Insertion, infusion pump, for analgesia programmable pump, synchromed FDA Start: 09-25-2021 Insertion, infusion pump, for analgesia programmable pump, synchromed FDA Start: 09-25-2021 Goals Date Patient Goal Desired Activity /State Functional Status Date Assessment Result Facility 02-24-2023 Functional Status Room check performed [facility] 02-24-2023 [facility] Functional Status Independent Elsy Henry [facility] 02-24-2023 Functional Status Min A Elsy Henry [facility] 02-24-2023 Functional Status Demonstrates C orrect Call Light Use Yes [facility] 02-23-2023 Functional Status Elsy Henry [facility] 02-23-2023 Functional Status Dinner Percent 25 [facility] 02-23-2023 Functional Status Elsy Henry [facility] 02-23-2023 Functional Status 60 Elsy Henry [facility] 02-23-2023 Functional Status 2 Elsy Henry [facility] 02-23-2023 Functional Status Single level home [facility] 02-23-2023 Functional Status Elsy Henry [facility] 02-22-2023 Functional Status Elsy Henry [facility] 02-22-2023 Functional Status Elsy Henry [facility] 02-22-2023 Functional Status Cane, Vern [facility] 02-22-2023 Functional Status ice on, tension pillow in place [facility] 02-22-2023 Functional Status NPO Status Maintained A [facility] 02-03-2023 Functional Status Sensory Deficits None A [facility] 09-17-2022 Functional status Ambulates [facility] Work Phone: Mental Status Date Assessment Result Facility 02-24-2023 Mental Status Orientation Asse ssment Oriented x 4 [facility] 02-24-2023 [facility] 02-24-2023 Mental Status Oriented x 4 [facility] 02-23-2023 Mental Status [facility] 02-23-2023 Mental Status [facility] 09-16-2022 Cognitive function Voice/Name [facility] Work Phone: 01-30-2022 Cognitive function Level Of Cons ciousness Awake;Alert;Appropriate;Follow s Commands [facility] Work Phone: 09-25-2021 Cognitive function Level Of Cons ciousness Appropriate;Drowsy [facility] Work Phone: 09-25-2021 Cognitive function Voice/Name [facility] Work Phone: Clinical Notes 02-07-2015 to 07-28-2024 Telephone Encounter - Kitty Greco - 11/07/2023 10:14 AM EDTTelephone Encounter - Kitty Greco - 11/07/2023 10:14 AM EDTTelephone Encounter - Maria Teresa Bacon - 11/03/2023 9:43 AM EST Note Date & Type Note Facility 07-28-2024 Note [facility] 03-03-2024 Note [facility] 02-20-2024 Note [facility] 02-20-2024 Note [facility] 02-17-2024 Note [facility] 11-07-2023 Note Spoke to patient and advised her that we have not received her referral and requested her to have her pcp refax the referral to us. Patient verbalized understanding. [facility] 11-07-2023 Telephone encounter Note Spoke to patient and advised her that we have not received her referral and requested her to have her pcp refax the referral to us. Patient verbalized understanding. [facility] 11-07-2023 Miscellaneous Notes Spoke to patient and advised her that we have not received her referral and requested her to have her pcp refax the referral to us. Patient verbalized understanding. Name of caller: Flex Contact phone number: [phone] Relationship to Patient: patient Provider: Dr. Landis Practice: Endocrinology Chief Complaint/Reason for Call: Flex states she would like a call back to confirm receipt of her referral faxed to the office two days ago, 11/01/23, by Dr. Rica Padgett. Please contact Flex and advise. Best time of day caller can be reached: Any Patient advised that office/PCP has 24-48 business hours to return their call: No documented in this encounter [facility] 11-03-2023 Telephone encounter Note Name of caller: Flex Contact phone number: [phone] Relationship to Patient: patient Provider: Dr. Landis Practice: Endocrinology Chief Complaint/Reason for Call: Flex states she would like a call back to confirm receipt of her referral faxed to the office two days ago, 11/01/23, by Dr. Rica Padgett. Please contact Flex and sobiae. Best time of day caller can be reached: Any Patient advised that office/PCP has 24-48 business hours to return their call: No [facility] 09-06-2023 Hospital Discharg e instructions Mariia Mgchee RN - 09/06/2023 1:17 PM EST Patient [...] having your procedure, call the [facility] to be advised whether a visit to [...] Libertarian Signature Date documented in this encounter [facility] Work Phone: 09-06-2023 History and physical note History Of Present Illness Flex Wooten is a 63 y.o. female presenting with [...] professional and overall care of this patient. Renita Mijares DO [facility] Work Phone: 09-06-2023 History and physical note History Of Present Illness Flex Wooten is a 63 y.o. female presenting with [...] professional and overall care of this patient. Renita Mijares DO documented in this encounter [facility] Work Phone: 09-06-2023 Miscellaneous Notes Patient: Flex Wooten Pre-sedation Evaluation: Sedation necessary for: Analgesia Requesting service: Endoscopy History of Present Illness: Colonoscopy Past Medical History: Diagnosis Date Anxiety Chronic pain Depression Diabetes mellitus (CMS/HCC) Disease of thyroid gland Sleep apnea Principle problems: There are no problems to display for this patient. 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 Patient: Flex Wooten Pre-sedation Evaluation: Sedation necessary for: Analgesia Requesting service: Endoscopy History of Present Illness: Colonoscopy Past Medical History: Diagnosis Date Anxiety Chronic pain Depression Diabetes mellitus (CMS/HCC) Disease of thyroid gland Sleep apnea Principle problems: There are no problems to display for this patient. 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 Patient: Flex Wooten Pre-sedation Evaluation: Sedation necessary for: Analgesia Requesting service: Endoscopy History of Present Illness: Colonoscopy Past Medical History: Diagnosis Date Anxiety Chronic pain Depression Diabetes mellitus (CMS/HCC) Disease of thyroid gland Sleep apnea Principle problems: There are no problems to display for this patient. 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: (Not in a hospital admission) Current [...] lactated Ringer's infusion 20 mL/hr intravenous Continuous Renita Mijares DO Past Surgical History: has a [...] - normal exam Plan ASA 2 Moderate [facility] Work Phone: 02-24-2023 Hospital Discharg e instructions Patient Education 02/24/2023 14:38:28 5 - [facility] Post-op Instruction 03/2017 ([id number]) [facility] Post-operative Instructions PLEASE FOLLOW [facility] POST-OP INSTRUCTIONS GIVEN WATCH FOR SIGNS OF INFECTION: call the office ([phone]) if experencing any of the following: (Usually [...] on your follow up instructions. Form: [id number]) R: 01/02 Follow Up Care 08/11/2022 13:44:36 With:MATTHEW HERNÁNDEZ PA-C, Orthopedic Address: [facility] [address] [place] [id number] When:03/07/2023 10:15:00 [facility] 02-24-2023 Note Discharge Instructions Thank you for allowing [facility] to assist you with your healthcare needs. The following is important discharge information regarding your hospital visit. Your Care Team [facility] Your Diagnosis Osteoarthritis Diabetes HTN (hypertension) Sleep apnea Status post total right knee replacement What to do next Follow Up Appointments Follow Up with MATTHEW HERNÁNDEZ PA-C, Orthopedic When 03/07/2023 10:15 AM EDT Where: [facility] [address] [place] [address]- The Following Activity and Diet Have Been [...] Rehab Potential - Ordered -- Rehab potential adonis, 02/24/23 15:06:57 EDT Someone Will Contact You [...] FOR SIGNS OF INFECTION: call the office ([phone]) if experencing any of the following: (Usually [...] on your follow up instructions. Form: 338A ([id number]) R: 01/02 Additional Information VACCINATE! IT SAVES LIVES! Members of the community who have not yet received the COVID-19 vaccine and would like to receive it can visit one of [facility] vaccine clinics. There are many vaccine clinic locations within the [facility]. For locations and available times, please visit [email or web address] hio.[email or web address] It is important to note that some COVID mobile vaccine clinics are held outdoors and may be canceled in rainy or stormy conditions. To learn more about pediatric vaccinations (ages 5-11), we invite you to visit the [employer] webpage. https://www.[employer].[email or web address]/p [email or web address]-Freq alyyye-Ptwgz-Rjiboyufh.html To learn more about the COVID-19 vaccine, we invite you to visit the CDC website for a list of frequently asked questions.https://www.cdc.gov/co ronavirus/2019-ncov/vaccines/faq .html [employer] Patient Portal Access Instructions: Stay connected with your healthcare team and access your personal medical information anytime with the [employer] Patient Portal. Please follow the directions below to create your [employer] account: 1.Access the email account you provided upon registration to the hospital/physician office.2.Look for an invitation email from [facility].3.Open the email and access the invitation link: Accept Invitation to [employer].4.Fill in the required morocho to create your account. To access your account, visit [employer]. Click the blue button labeled Access Patient [...] you will allow to register on the [facility] for access to your information. You can also access the [facility] Patient Portal on the [facility] otoniel. Simply click on Patient Portal and then log into your account. If you would like to receive a full copy of your medical records, please contact the [facility] Medical Records Department by calling [phone], Tuesday through Tuesday between 8 a.m. and [...] Call your local pharmacy or go to [email or web address] [id number] to find one close to you.3.Make use of household items: Use cat litter or old coffee grounds to dispose medications if other options are not available. Mix your drugs with these household products, seal them in an airtight container and throw it into the garbage. Call [facility]: [phone] to be sure your drugs can be [...] Signatures Patient Education Materials 5 - [facility] Post-op Instruction 03/2017 (30653) Medication Leaflets My discharge plan and instructions have been reviewed and explained to me and I,FLEX WOOTEN understand my current condition and have read and understand these discharge instructions. I have received a written copy of the plan/instructions. If I have questions, I am aware that I should contact my doctor. Patient/Welt Rougher Signature: Date/Time: Relationship to Patient: Witness Name/Signature: Date/Time: [facility] 02-24-2023 Note Discharge Instructions Thank you for allowing [facility] to assist you with your healthcare needs. The following is important discharge information regarding your hospital visit. Your Care Team [facility] Your Diagnosis Osteoarthritis Diabetes HTN (hypertension) Sleep apnea Status post total right knee replacement What to do next Follow Up Appointments Follow Up with MATTHEW HERNÁNDEZ PA-C, Orthopedic When 03/07/2023 10:15 AM EDT Where: [facility] [address] [place] [address]- The Following Activity and Diet Have Been [...] until first bowel movement, then as needed 02/24:07 New meloxicam (Mobic 7.5 mg oral tablet) 1 tab(s) by mouth Twice daily with meals 02/24:07 New oxyCODONE (oxyCODONE 5 mg oral tablet ( IMMEDIATE release )) See instructions Status post total right knee replacement 1-2 tab(s) Oral q4h Printed Prescription 02/24 @ 15:03 New rivaroxaban (Xarelto 10 mg oral tablet) 1 tab(s) by mouth Once a day Continue Xarelto for 2 weeks postoperatively with stop date March 08, 202302/24 @ :07 Changed gabapentin (gabapentin 100 mg oral capsule) 1 cap by mouth Three (3) times a day 02/24 @ 15:03 Unchanged atenolol (atenolol 25 mg oral tablet) 1 tab(s) by mouth Once a day 02/24:07 Unchanged cholecalciferol (Vitamin D3) 25 Microgram by mouth Every day Unchanged cloNIDine (cloNIDine 0.1 mg oral tablet) 1 tab(s) by mouth Three (3) times a day 02/24 @ :07 Unchanged dulaglutide (Trulicity Pen 1.5 mg/ 0.5 mL subcutaneous solution) 4.5 Milligram Subcutaneous Every week FRIDAYS Unchanged escitalopram (escitalopram 20 mg oral tablet) 1 tab(s) by mouth Every day 02/24 09:07 Unchanged folic acid (folic acid 1 mg oral tablet) 1 tab(s) by mouth Once a day Unchanged herbal/ nutritional product 2 tab(s) by mouth Every day ELDERBERRY CHEWABLES Unchanged herbal/ nutritional product (Probiotic) by mouth Every day Unchanged hydrOXYzine (hydrOXYzine hydrochloride 50 mg oral tablet) 2 tab(s) by mouth Once a day 02/24 @ :07 Unchanged insulin glargine (Lantus Solostar Pen 100 [...] The extended-release form of oxycodone is for cmamyt-qsf-nrqfy treatment of pain and should not be [...] against the law. Stop taking all other oywvuk-wrz-ncdgo opioid pain medicines when you start taking [...] may report side effects to FDA at 7-320-CVV-5606. What other drugs will affect oxycodone? You [...] may affect oxycodone. This includes prescription and ggek-oqk-ekvggpq medicines, vitamins, and herbal products. Not all [...] to ensure that the information provided by [employer]. ('[employer]') is accurate, up-to-date, and complete, but no guarantee is made to that effect. Drug information contained herein may be time sensitive. [employer] information has been compiled for use by healthcare practitioners and consumers in the [place] and therefore [employer] does not warrant that uses outside of the [place] are appropriate, unless specifically indicated otherwise. [employer]'s drug information does not endorse drugs, diagnose patients or recommend therapy. [employer] drug information is an informational resource designed [...] effective or appropriate for any given patient. [employer] does not assume any responsibility for any aspect of healthcare administered with the aid of information [employer] provides. The information contained herein is not intended to cover all possible uses, directions, precautions, warnings, drug interactions, allergic reactions, or adverse effects. If you have questions about the drugs you are taking, check with your doctor, nurse or pharmacist. Copyright 8003-5850 [employer]. Version: 14.02. Revision Date: 09/25/2020. Education Materials [facility] Post-operative Instructions PLEASE FOLLOW [facility] POST-OP INSTRUCTIONS GIVEN WATCH FOR SIGNS OF INFECTION: call the office ([phone]) if experencing any of the following: (Usually [...] on your follow up instructions. Form: 338A (00053) R: 01/02 Additional Information VACCINATE! IT SAVES LIVES! Members of the community who have not yet received the COVID-19 vaccine and would like to receive it can visit one of [facility] vaccine clinics. There are many vaccine clinic locations within the [facility]. For locations and available times, please visit https://gettheshot.coronavirus.o cao.gov/. It is important to note that some COVID mobile vaccine clinics are held outdoors and may be canceled in rainy or stormy conditions. To learn more about pediatric vaccinations (ages 5-11), we invite you to visit the [facility] webpage. https://www.[facility].org/p ages/6419-Yebns-Syhzkbxzbrf-Freq yolmgu-Sxsvf-Heecjowqi.html To learn more about the COVID-19 vaccine, we invite you to visit the CDC website for a list of frequently asked questions.https://www.cdc.gov/co ronavirus/2019-ncov/vaccines/faq .html [employer] Patient Portal Access Instructions: Stay connected with your healthcare team and access your personal medical information anytime with the [employer] Patient Portal. Please follow the directions below to create your [employer] account: 1.Access the email account you provided upon registration to the hospital/physician office.2.Look for an invitation email from [facility].3.Open the email and access the invitation link: Accept Invitation to [employer].4.Fill in the required morocho to create your account. To access your account, visit [employer]. Click the blue button labeled Access Patient [...] you will allow to register on the [facility] Patient Portal for access to your information. You can also access the [facility] Patient Portal on the [facility] otoniel. Simply click on Patient Portal and then log into your account. If you would like to receive a full copy of your medical records, please contact the [facility] Medical Records Department by calling [phone], Tuesday through Tuesday between 8 a.m. and [...] Call your local pharmacy or go to [email or web address] to find one close to you.3.Make use of household items: Use cat litter or old coffee grounds to dispose medications if other options are not available. Mix your drugs with these household products, seal them in an airtight container and throw it into the garbage. Call [facility]: [phone] to be sure your drugs can be [...] CHART COPY. Signatures Patient Education Materials [facility] Instruction 03/2017 (87622) Medication Leaflets oxycodone My discharge plan and instructions have been reviewed and explained to me and I,FLEX WOOTEN understand my current condition and have read and understand these discharge instructions. I have received a written copy of the plan/instructions. If I have questions, I am aware that I should contact my doctor. Patient/Welt Rougher Signature: Date/Time: Relationship to Patient: Witness Name/Signature: Date/Time: [facility] 02-23-2023 Note Date of Service February 23, 2023 Subjective The patient was sitting in bed upon examination. Patient denies any chest pain, shortness of breath, dizziness, lightheadedness, nausea or vomiting, or calf pain. No adverse overnight events. Pain has been controlled on medications. Patient was evaluated by physical therapy. Discharge planning is possible home health versus [facility] facility. She has had a previous left total knee arthroplasty that did require [facility] facility in the past. She states she went to [facility]. We do have physical therapy currently [...] Exam Vital signs stable, afebrile SCDs and MARY ANNE hose are in place bilaterally Patient is [...] possible discharge home with home health for [facility] facility. Patient does have steps to manage [...] of pulmonary embolism. I have reviewed the [place] Automated Rx Reporting System (OARRS) report for [...] grammatical errors may exist. Digitally Signed by MATTHEW HERNÁNDEZ PA-C on 02/23/2023 07:28 AM [facility] 02-22-2023 Note ORIGINAL EXAMINATION: TWO XRAY VIEWS [...] Sign Date: 02/22/2023 1:07:27 PM Ordering Provider: [facility] 02-22-2023 Note ORIGINAL EXAMINATION: TWO XRAY [...] Sign Date: 02/22/2023 1:07:27 PM Ordering Provider: [facility] 02-22-2023 Anesthesiology Consult note Patient: FLEX WOOTEN Age: 62 years Sex: Female : 1960 Associated Diagnoses: None Author: MARTINA GOODWIN Preoperative Information Time of last food or [...] Sister Diabetes Mother Sister Procedure history: Bunionectomy ([id number]). Comments: 02/03/2023 13:48 Hansa Álvarez RN BILATERAL Plantar fasciectomy ([id number]). Comments: 02/03/2023 13:48 Hansa Álvarez RN LEFT Fusion of lumbosacral region of spine by posterior approach (0127345910). Carpal tunnel release (379250130). Comments: 02/03/2023 13:50 Hansa Álvarez RN BILATERAL Tonsillectomy and adenoidectomy (102398320). Tubal ligation (838206897). Hysterectomy (654426845). Pump, device (6252253325). Comments: 02/03/2023 13:51 Hansa Álvarez RN PAIN PUMP Total knee arthroplasty (7267259301). Comments: 02/03/2023 13:52 Hansa Álvarez RN LEFT [...] Resp Rate 17 br/min (FEB 22 09:31) YQS714 mmHg (FEB 22 09:31) DBP77 mmHg (FEB 22 09:31) Measurements from flowsheet : Measurements 02/22/2023 9:31 EDT Height 162.6 cm Admission Weight 110 kg [place] Body Weight 54.74 kg Admission Body Mass [...] Height 162.6 cm Admission Weight 110 kg [place] Body Weight 54.74 kg Admission Body Mass [...] no difficulties Skin Temperature Warm Skin Description The Silos, Normal for ethnicity, Dry Skin Integrity Intact Mucous Membrane Color [place] Skin Moisture General Dry IV Present Present [...] symptoms Safety Brochure Information Reviewed Yes Elsy Chengdu [employer] Video Viewed No Teaching Evaluation No further teaching needed Admission Note-Nursing Same Day Patient History (Modified) . Assessment and Plan [place] Society of Anesthesiologists (ASA) physical status classification: [...] pump in abdomen. Digitally Signed by MARTINA GOODWINSQUARE SHEAR OPERATOR on 02/22/2023 10:01 AM Digitally Signed by MARTINA GOODWIN PRICING SUPERVISOR-SQUARE SHEAR OPERATOR on 02/22/2023 10:02 AM Digitally Signed by MARTINA GOODWIN PRICING SUPERVISOR-SQUARE SHEAR OPERATOR on 02/22/2023 10:56 AM Digitally Signed by MARTINA GOODWIN APRN-SQUARE SHEAR OPERATOR on 02/22/2023 10:59 AM [facility] 10-06-2022 Telephone encounter Note Name of caller requesting page:Matthew Phone Number of caller: [phone] ext [phone] Facility requesting page: [employer] Reason for Page: Authorization Provider paged: Dr. Mony Wright Practice Name of paged provider: [facility] Placed to #: secure chat Time Page was sent or provider contacted: 2:40pm Page Content: Matthew, a clinical nurse advisor with [facility], called to inform Dr. Tre Anderson that the authorization for DME home ventilator has been denied. He state Dr. Anderson can do a peer to peer review with their biomedical instrument technician. The acceptance date for the peer to peer is on or before 10/08/22 at 3pm. Peer to Peer can be scheduled by call Matthew at [phone] ext [phone] with reference number [id number]. Thank you. Response from Dr. Wright: I have never seen or met the patient Im not sure who needs to be contacted for this patient Reached out to [facility]. Advised to call Matthew back. Spoke with another nurse advisor. Asked when order was placed, was advised it was 09/30/22 which was before pt had a chart with [facility]. There is another Dr. Tre Anderson at [facility]. That is where the records came from. The nurses states they will reach out to [facility]. [facility] 10-06-2022 Miscellaneous Notes Name of caller requesting page:Matthew Phone Number of caller: [phone] ext [phone] Facility requesting page: [employer] Reason for Page: Authorization Provider paged: Dr. Mony Wright Practice Name of paged provider: [facility] Placed to #: secure chat Time Page was sent or provider contacted: 2:40pm Page Content: Matthew, a clinical nurse advisor with [facility], called to inform Dr. Tre Anderson that the authorization for DME home ventilator has been denied. He state Dr. Anderson can do a peer to peer review with their biomedical instrument technician. The acceptance date for the peer to peer is on or before 10/08/22 at 3pm. Peer to Peer can be scheduled by call Matthew at [phone] ext [phone] with reference number [id number]. Thank you. Response from Dr. Wright: I have never seen or met the patient Im not sure who needs to be contacted for this patient Reached out to [facility] management. Advised to call Matthew back. Spoke with another nurse advisor. Asked when order was placed, was advised it was 09/30/22 which was before pt had a chart with [facility]. There is another Dr. Tre Anderson at [facility]. That is where the records came from. The nurses states they will reach out to [facility]. documented in this encounter [facility] 06-23-2022 Miscellaneous Notes I left a message for Tessie at [employer] regarding their addendum request. If they have Dr. Aggarwal' note, they have all the answers they need. Not sure if they have the patient's clinic note. Mendy Adams RN documented in this encounter [facility] 05-19-2022 Note HNO ID: [id number] Author: Nicolás Aggarwal MD Service: ? Author Type: Physician Type: Progress Notes Filed: 05/19/2022 12:52 PM Note Text: New Patient Referring Physician: Rica Padgett DO Flex Wooten is a 62 year old female referred [...] HISTORY Diagnosis Date DVT (deep venous thrombosis) ([facility]LY [facility]) 2013 post knee replacement Fibromyalgia Hemorrhage of gastrointestinal tract, unspecified Hemorrhage of rectum and anus Internal hemorrhoids without mention of complication Other forms of migraine Other unspecified back disorder Pulmonary embolism ([facility]) 2013 PAST SURGICAL HISTORY Procedure Laterality Date ARTHRD ANT NTRBD MIN DSC EA ADDL INTERSPACE ARTHRP KNE CONDYLEANDPLATU MEDIALANDLAT COMPARTMENTS 2014 left COLONOSCOPY FLX DX W/COLLJ [...] Lungs: No H (more content not included)... [facility] 05-19-2022 Note HNO ID: [id number] Author: RT Charley(R) Service: Radiology Author Type: Technologist Type: Progress Notes Filed: 05/19/2022 10:21 AM Note Text: Radiology Service Progress Note PATIENT NAME: Flex Wooten DATE OF SERVICE: May 19, 2022 TIME: [...] RT Charley(R) May 19, 2022 10:16 AM [facility] 05-19-2022 History of Presen t illness Narrative New Patient Referring Physician: Rica Padgett DO Flex Wooten is a 62 year old female referred [...] states that she is in pain today /10 she states the pain feels like a [...] HISTORY Diagnosis Date DVT (deep venous thrombosis) ([facility]) 2014 post knee replacement Fibromyalgia Hemorrhage of gastrointestinal tract, unspecified Hemorrhage of rectum and anus Internal hemorrhoids without mention of complication Other forms of migraine Other unspecified back disorder Pulmonary embolism ([facility]) 2014 PAST SURGICAL HISTORY Procedure Laterality Date ARTHRD ANT NTRBD MIN DSC EA ADDL INTERSPACE ARTHRP KNE CONDYLE&PLATU MEDIAL&LAT COMPARTMENTS 2013 left COLONOSCOPY FLX DX W/COLLJ [...] X-Rays The patient's pertinent medical history from [facility] has been reviewed. PFOMIS forms have been [...] of left foot (E11.40) Diabetic neuropathy, painful ([facility]) (M21.072) Acquired valgus deformity of left ankle [...] records. This note was partially generated using Hey, Neighbor! voice recognition system, and there may be some incorrect words, spellings, and punctuation that were not noted in checking the note before saving. Scribe Attestation: By signing my name below, I, Brianda Decker, attila that this documentation has been prepared under the direction and in the presence of Nicolás Aggarwal MD. Electronically Signed: kj Stanford, May 19, 2022 10:50 AM Nicolás Aggarwal M.D. documented in this encounter [facility] 05-19-2022 History of Presen t illness Narrative Radiology Service Progress Note PATIENT NAME: Flex Wooten DATE OF SERVICE: May 19, 2022 TIME: [...] 2022 10:16 AM documented in this encounter [facility] 02-07-2015 Miscellaneous Notes PSR: Please call pt for ASSESSOR Yearly and mammogram. Thanks. Patient received letter for annual mammogram, please place order and have mill order scheduler call her. Patient prefers AM appts. documented in this encounter [facility] Evaluation + Plan note Future Appointments [facility] Evaluation note Diagnosis Other screening mammogram documented [facility]No [facility] Work Phone: Evaluation note* Diagnosis Pes planus of left foot- Primary Primary osteoarthritis of left foot Diabetic neuropathy, painful (HCC) Type II or unspecified type diabetes mellitus with neurological manifestations, not stated as uncontrolled Acquired valgus deformity of left ankle [facility] Diagnosis Onset Date Resolution Status Diabetes chronic High cholesterol chronic Hypertension chronic Obesity chronic Diabetes chronic Hypertension chronic Obesity chronic [facility] Work Phone: Evaluation note* Diagnosis Onset Date Resolution Status NIEVES (dyspnea on exertion) re solved Hypoxia resolved [facility] Work Phone: Evaluation note* Diagnosis Acquired valgus deformity of left ankle- Primary [facility]* Diagnosis Pain Generalized pain documented in this encounter [facility] note* Diagnosis Diarrhea, unspecified type- Primary documented in this encounter [facility] Work Phone: Evaluation note* Diagnosis Diarrhea, unspecified type- Primary documented in this encounter [facility] Work Phone: Hospital course Narrative No data available for this section [facility] Hospital Discharge instructions No data available for this section [facility] Progress note No data available for this section [facility] Diagnostic Procedure Only (Routine) - Pending Review Specialty Diagnoses / Procedures Referred By Contac t Referred To Contact XR IMAGING Diagnoses Acquired valgus deformity of left ankle Procedures XR ANKLE GENERAL 3V AP/LAT/OBL LEFT RADEX ANKLE COMPLETE MINIMUM 3 VIEWS Nicolás [place] [address] [place] [address] Xr Imaging Referral ID Status Reason Start Date Expiration Date Visits Requested Visits Authorized [id number] Pending Review Auto-Generat ed Referral 09/28/2022 10/27/2023 1 1 [facility] for referral (narrative)* Diagnostic Procedure Only (Routine) - Closed Specialty Diagnoses / Procedures Referred By Contac t Referred To Contact XR IMAGING Diagnoses Pain Procedures XR FOOT GENERAL 3V AP/LAT/OBL LEFT RADEX FOOT COMPLETE MINIMUM 3 VIEWS Nicolás [place] [address] [place] [address] [place] [address] Referral ID Status Reason Start Date Expiration Date V isits Requested Visits Authorized [id number] Closed Auto-Generate d Referral 05/04/2022 06/03/2023 1 1 [facility] Summary Purpose Family History No Family History Records Found Relationship Condition Age at Onset Recorded Date/T alex Not Specified Arthritis Unknown Cardiac disease Unknown sister Malignant neoplasm of breast Unknown Diabetes mellitus Unknown Kidney disorder Unknown Advance Directives No Advanced Directives Records Found Advance Directive Response Recorded Date/ Time Advance Directives Yes August 01, 2015 5:05pm Living Will No November 10, 2021 11:41am Power of Hopper Feeder No November 10 11:41am Advance Directive Response Recorded Date/ Time Advance Directives Yes August 01, 2015 5:05pm Living Will No January 25, 2022 2 :05pm Power of Hopper Feeder No January 25, 2022 2:05pm Advance Directive Response Recorded Date/ Time Advance Directives Yes August 01, 2015 5:05pm Living Will No Barb 4th, 2022 1 1:58pm Power of Hopper Feeder No January 30, 2022 11:58pm Advance Directive Response Recorded Date/ Time Advance Directives Yes April 2:05pm Living Will No May 19, 2022 2:05pm Power of Hopper Feeder No April 2:05pm Advance Directive Response Recorded Date/ Time Advance Directives Yes April 2:05pm Living Will No September 16 5:52pm Power of Hopper Feeder No September 16, 2022 5:52pm Latest Code Status on File Code Status Date Activated Date Inactivated Comments Full Code 10/02/2022 2:36 AM 10/05/2022 5:51 PM Chief Complaint and Reason for Visit Chief Complaint ANEMIA PAIN PUMP IMPLANTABLE REVISION PADMAJA PROTOCAL PRE SURGERY PADMAJA PROTOCAL PRE SURGERY SOB, RULE OUT PE Chief Complaint PAIN PUMP IMPLANTABL E REVISION PADMAJA PROTOCAL PRE SURGERY RT TOTAL KNEE W PADMAJA PADMAJA PROTOCAL PRE SURGERY SOB, RULE OUT PE Chief Complaint PADMAJA PROTOCAL PRE KENT RGERY RT TOTAL KNEE W PADMAJA PADMAJA PROTOCAL PRE SURGERY SOB, RULE OUT PE SOB Chief Complaint PADMAJA PROTOCAL PRE KENT RGERY RT TOTAL KNEE W PADMAJA PADMAJA PROTOCAL PRE SURGERY SOB, RULE OUT PE SOB HYPERGLYCEMIA 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, 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 Reason for Visit Diabetes High cholesterol Hypertension Obesity Diabetes Hypertension Obesity Chief Complaint 3 M FU RULE OUT DVT HYPOXIA HYPOXIA HYPOXIA SOB Reason for Visit NIEVES (dyspnea on exer tion) Hypoxia Reason for Referral Specialty Diagnoses / Procedures Referred By Kelton rincon Referred To Contact Gastroenterology Diagnoses Diarrhea, unspecified type Procedures Colonoscopy Screening; Average Risk Patient SC COLONOSCOPY FLX DX W/COLLJ SPEC WHEN PFRMD SC COLON CA SCRN NOT HI RSK IND SC COLORECTAL SCRN; HI RISK IND SC COLONOSCOPY W/BIOPSY SINGLE/MULTIPLE SC COLSC FLX W/RMVL OF TUMOR POLYP LESION SNARE TQ SC COLSC FLX W/REMOVAL LESION BY HOT BX FORCEPS Renita Mijares, DO [address] [facility], [address] [place] [address] Referral ID Status Reason Start Date Expiration Date V isits Requested Visits Authorized [id number] Authorized 07/26/2023 07/25/2024 1 1 Additional Source Comments INFORMATION SOURCE (unrecogn ized section and content) DATE CREATED AUTHOR 05/09/2019 [facility] DATE CREATED AUTHOR AUTHOR'S ORGANIZ ATION 05/09/2019 [facility] DATE CREATED AUTHOR AUTHOR'S ORGANIZ ATION 02/13/2020 [facility] DATE CREATED AUTHOR AUTHOR'S ORGANIZ ATION 05/27/2021 [facility] DATE CREATED AUTHOR AUTHOR'S ORGANIZ ATION 06/26/2022 [facility] DATE CREATED AUTHOR AUTHOR'S ORGANIZ ATION 03/07/2023 [facility] ([place]) DATE CREATED AUTHOR AUTHOR'S ORGANIZ ATION 09/08/2023 [facility] DATE CREATED AUTHOR AUTHOR'S ORGANIZ ATION 11/07/2023 [facility] DATE CREATED AUTHOR AUTHOR'S ORGANIZ ATION 02/05/2025 [facility] Source Comments (unrecognize d section and content) In the event this informatio n is protected by the Federal Confidentiality of Alcohol and Drug Abuse Patient Records regulations: The Federal rules restrict any use of the information to criminally investigate or prosecute any alcohol or drug abuse patient.[facility] the event this information is protected by the Federal Confidentiality of Alcohol and Drug Abuse Patient Records regulations: The Federal rules restrict any use of the information to criminally investigate or prosecute any alcohol or drug abuse patient.[facility] Hospital[facility] the event this information is protected by the Federal Confidentiality of Alcohol and Drug Abuse Patient Records regulations: The Federal rules restrict any use of the information to criminally investigate or prosecute any alcohol or drug abuse patient.[facility] Hospital[facility] the event this information is protected by the Federal Confidentiality of Alcohol and Drug Abuse Patient Records regulations: The Federal rules restrict any use of the information to criminally investigate or prosecute any alcohol or drug abuse patient.[facility] Hospital[facility] the event this information is protected by the Federal Confidentiality of Alcohol and Drug Abuse Patient Records regulations: The Federal rules restrict any use of the information to criminally investigate or prosecute any alcohol or drug abuse patient.[facility] Reason for Visit (unrecogniz ed section and content) Reason Onset Date Comments Yearly Exam With Mammogram 02/07/2015 Reason Comments New Reason Onset Date Comments Question 06/23/2022 Reason Comments Radio Gen RMP Specialty Diagnoses / Procedures Referred By Contac t Referred To Contact XR IMAGING Diagnoses Pain Procedures XR FOOT GENERAL 3V AP/LAT/OBL LEFT RADEX FOOT COMPLETE MINIMUM [address] VIEWS Nicolás [place] [address] [place] [address] [place] [address] Referral ID Status Reason Start Date Expiration Date V isits Requested Visits Authorized [id number] Closed Auto-Generate d Referral 05/04/2022 06/03/2023 1 1 Specialty Diagnoses / Procedures Referred By Kelton t Referred To Contact Diagnoses Diarrhea, unspecified Procedures SC COLONOSCOPY FLX DX W/COLLJ SPEC WHEN PFRMD SC COLONOSCOPY W/BIOPSY SINGLE/MULTIPLE SC COLSC FLX W/RMVL OF TUMOR POLYP LESION SNARE TQ SC COLSC FLX W/REMOVAL LESION BY HOT BX FORCEPS [id number] [address] [place] [address] [phone] Referral ID Status Reason Start Date Expiration Date Visits Re quested Visits Authorized [id number] 1 1 Reason Onset Date Comments Referral 11/03/2023 Confirm receipt of referral faxed 11/01/23 Reason Onset Date Comments Page Out 10/06/2022 <item><item> Privacy Markings (unrecogniz ed section and [...] you with the consent of such client. Goals (unrecognized section and content) Goals may be documented in a n alternate sectionGoals may be documented in an alternate sectionGoals may be documented in an alternate sectionGoals may be documented in an alternate sectionGoals may be documented in an alternate sectionGoals may be documented in an alternate section No data available for this section No data available for this section No data available for this section Care Teams (unrecognized sec tion and content) [employer] Relationship Specialty Start Date End Date Rica Padgett DO [address] [place], [place] [id number] PCP - General Family Medicine 04/09/19 [employer] Relationship Specialty Start Date End Date Rica Padgett DO [address] [place] [address] PCP - General Family Medicine 04/09/19 Team Status: Active Member Role Status Dates Dr. Rica Padgett DO Family Provider Active Dr. Rica Padgett DO Primary Care Provider Active Team Status: Inactive Member Role Status Dates Dr. Rica Padgett DO Primary Care Provider, Referring P bryn Active SAGE Barrios Attending Provider Active Team Status: Active Member Role Status Dates Dr. Rica Padgett DO Primary Care Provider Active Dr. Marie Dee , DO Emergency Provider Active Dr. Adebayo Mckeon , DO Admit Provider, Attending Provider, Other Provider Active Team Status: Active Member Role Status Dates Dr. Rica Padgett DO Primary Care Provider Active Dr. Matt Oglesby MD Attending Provider Active Team Status: Active Member Role Status Dates Dr. Rica Padgett DO Primary Care Provider Active Dr. Marie Dee , DO Emergency Provider Active Dr. Adebayo Mckeon , DO Admit Provider, Other Provide r Active Dr. Tre Anderson , DO Attending Provider, Other Provid er Active Team Status: Inactive Member Role Status Dates Dr. Rica Padgett DO Primary Care Provider Active Dr. Martin Trejo MD Attending Provider, Referring Pr ovider Active Team Status: Active Member Role Status Dates Dr. Rica Padgett DO Primary Care Provider Active Dr. Deuce Shaw MD Attending Provider, Referrin g Provider Active Team Status: Inactive Member Role Status Dates Dr. Rica Padgett DO Primary Care Provider Active Dr. Marie Dee DO Emergency Provider Active Dr. Adebayo Mckeon DO Admit Provider, Other Provide r Active Dr. Tre Anderson DO Attending Provider Active Team Status: Inactive Member Role Status Dates Dr. Rica Padgett DO Primary Care Provider Active Dr. Deuce Shaw MD Attending Provider, Maxine james Provider Active [employer] Relationship Specialty Start Date End Date Rica Padgett DO [address] [place] [address] PCP - General Family Medicine 04/09/19 [employer] Relationship Specialty Start Date End Date Rica Padgett DO [address] [place] [address] PCP - General Family Medicine 04/09/19 [employer] Relationship Specialty Start Date End Date Rica Padgett DO [address] [place] [phone] PCP - General Family Medicine 09/06/23 [employer]blaster Stone Relationship Specialty Start Date End Date Rica Padgett DO [address] [place] [phone] PCP - General Family Medicine 09/06/23 Sandblaster Stone Relationship Specialty Start Date End Date Chip Erin [address] [place], [place] [phone] PCP - General Family Medicine 10/01/22 Sandblaster Stone Relationship Specialty Start Date End Date Erin Saunders [address] [place], [place] [phone] PCP - General Family Medicine 10/01/22 FOR RECORDS PERTAINING TO PATIENTS WHO ARE [...] BE BASED ON THE PRIMARY CLINICAL RECORDS. [employer] [facility]. provides no warranty or guarantee of the accuracy or completeness of information in this document.
== END | disposition home or self-care (01) ==
LOC: CT 08:55
PROVIDERS: PCP Family Medicine; Referring Provider Podiatrist; Visit Provider Podiatrist
DX: M84.375G Stress fracture, left foot, subsequent encounter for fracture with delayed healing (principal); E11.42 Type 2 diabetes mellitus with diabetic polyneuropathy; M19.072 Primary osteoarthritis, left ankle and foot
CPT/HCPCS: 73700

== ENCOUNTER 2025-03-15 17:13 | Inpatient (IN) | payer MEDICARE, OTHER, SELFPAY ==
[2025-03-15] VITALS (7 sets, daily range): BP systolic 120–166; BP diastolic 63–109; PULSE 58–94; RESP 16–91; TEMP 36.6–37; O2SAT 91–100; BMI 44.4; BMI 45.6
[2025-03-15 18:21] LABS: Hematocrit 39.5 % (37-47); Hemoglobin 13.0 g/dL (12.0-15.0); Immature Granulocytes Count 0.050 X10^3/uL (0.0-0.0); Mean Corp Hgb Conc 32.9 g/dL (32-36); Mean Corpuscular Volume 88.0 fL (81-99); Mean Platelet Vol. 9.5 fl (6.2-12.0); NRBC Flagged by Analyzer 0 % (0-5); Platelet Count 234 K/mm3 (150-450); RBC Distribution Width CV 13.7 % (11.6-14.6); RBC Distribution Width SD 43.7 fl (35.1-43.9); Red Blood Count 4.49 M/mm3 (4.2-5.4); White Blood Count 9.1 K/mm3 (4.4-11.0)
[2025-03-15 18:21] LABS: SITE Not entered; VBG BASE EXCESS 6 mmol/L (-1.0-3.5); VBG PO2 58 mmHg (25-40); VBG SO2 89 % (50-70); VBG TCO2 32 mmol/L (23-33)
--- OUTSIDE RECORDS SUMMARY | 2025-03-15 18:34 | XMS RPT_ITS | CCD ---
Author Organization [facility] CliniSywa Care Team Providers Care Slope Runner Name Role Phone Stehekin Azra ELLIS Unavailable [phone] Admitting Unavailable PB DRUMMOND DR Attending Unavailable PB DRUMMOND DR Primary Care Unavailable Shonda York Primary Care Provider Rica Padgett DO Primary Care Provider Rica Padgett Unavailable Jesus Amezquita Unavailable Silvana Henderson Unavailable Unavailable Dr. Rica Padgett Primary Care Provider [phone] Dr. Roscoe Helton Attending Provider Dr. Pj Mahoney Referring Provider Rica Padgett DO Primary Care Provider NICOLÁS AGGARWAL Referring Unavailable RICA PADGETT Primary Care Unavailable NICOLÁS AGGARWAL Attending Unavailable RICA PADGETT Primary Care Unavailable Dr. Rica Padgett Primary Care Provider [phone] Dr. Rica Padgett Referring Provider SAGE Ruiz Attending Provider Dr. Rica Padgett Primary Care Provider Dr. Rica Padgett Referring Provider SAGE Ruiz Attending Provider [phone] Marie Dee Emergency Provider [phone] Dr. Adebayo Mckeon Admit Provider Dr. Adebayo Mckeon Attending Provider Dr. Adebayo Mckeon Other Provider Dr. Tre Anderson Attending Provider Dr. Tre Anderson Other Provider Dr. Matt Oglesby Attending Provider Malys DO, Rica A Primary Care Provider [phone] AMISHYS , DR RICA Alonso Primary Care Physician PJ MAHONEY Attending Unavailable MALYS DO, DR RICA Alonso Primary Care Unavailable PJ MAHONEY Attending Unavailable MALYS DO, DR RICA Alonso Primary Care Unavailable PJ MAHONEY Attending Unavailable AMISHYS DO, DR RICA Alonso Primary Care Unavailable PJ MAHONEY Admitting Unavailable EDGAR GONZALEZ, MATTHEW Allan Consulting Unavailable PJ MAHONEY Referring Unavailable ERIC PACKAGE YARNS DRYING MACHINE OPERATOR-PHLEBOTOMY DIRECTOR, RICA Vargas Consulting Unavaila ble Malys DO, Rica Flex Primary Care Provider RENITA MIJARES Attending Unavailable RENITA MIJARES Referring Unavailable MALYS, RICA FLEX Primary Care Unavailable ChipErin Primary Care Provider Chip Erin Primary Care Provider Malys, Rica Primary Care Unavailable Pj Lee Attending Unavailable Marissa Ruiz Attending Unavailable Malys, Rica Primary Care Unavailable Malys, Rica Referring Unavailable Marissa Ruiz Attending Unavailable Malys, Rica Primary Care Unavailable Malys, Rica Referring Unavailable Marissa Ruiz Attending Unavailable Malys, Rica Primary Care Unavailable Malys, Rica Referring Unavailable Tre Anderson Attending Unavailable Malys, Rica Primary Care Unavailable David Caruso Consulting Unavailable David Caruso Admitting Unavailable Malys, Rica Attending Unavailable Malys, Rica Primary Care Unavailable Malys, Rica Referring Unavailable Malys, Rica Primary Care Unavailable Tre Flores Attending Unavailable Malys, Rica Primary Care Unavailable Uday Stokes Referring Unavailable Uday Stokes Attending Unavailable Malys, Rica Primary Care Unavailable Rm Keating Attending Unavailable Rafi Berry Referring Unavailable Rafi Berry Attending Unavailable Malys, Rica Primary Care Unavailable Malys, Rica Primary Care Unavailable SeesePj L Attending Unavailable Joseph, Marissa Attending Unavailable Malys, Rica Primary Care Unavailable Joseph, Marissa Attending Unavailable Malys, Rica Primary Care Unavailable Malys, Rica Referring Unavailable Malys, Rica Primary Care Unavailable Matt Oglesby Attending Unavailable Malys, Rica Primary Care Unavailable Shady, David Attending Unavailable Mosteller, David Consulting Unavailable Mosteller, David Admitting Unavailable Jopperi, Tre Attending Unavailable Jopperi, Tre Consulting Unavailable Malys, Rica Primary Care Unavailable SeesePj L Attending Unavailable Malys, Rica Primary Care Unavailable Seese, Pj L Attending Unavailable Wunning, Rafi Referring Unavailable Wunning, Rafi Attending Unavailable Malys, Rica Primary Care Unavailable Malys, Rica Primary Care Unavailable Sibilia, Deuce V Referring Unavailable Sibilia, Deuce V Attending Unavailable Malys, Rica Attending Unavailable Malys, Rica Primary Care Unavailable Malys, Rica Referring Unavailable Basali, Ayman Attending Unavailable Malys, Rica Primary Care Unavailable Basali, Ayman Referring Unavailable Malys, Rica Attending Unavailable Malys, Rica Primary Care Unavailable Joseph, Marissa Attending Unavailable Malys, Rica Primary Care Unavailable Malys, Rica Referring Unavailable Allergies Allergy Classification Reported Allergen(s) Allergy Type Date of Onset Reaction(s) Facility Anti-Epileptic Agents (2 sources) gabapentin Drug Allergy 5 Mental Status Change [facility] Work Phone: Niacin (1 source) Niacin Drug Allergy 7 Rash, Hives, Itching [facility] (2 sources) gabapentin Drug Allergy 6 hives, light headed [facility] (1 source) gabapentin Drug Allergy Hives/Urticaria [facility] (8 sources) Cephalexin Drug Allergy 2 Other [facility] (16 sources) Niacin; Translations: [NIACIN] Drug Allergy 7 Rash, Hives, Itching [facility] (5 sources) gabapentin; Translations: [GABAPENTIN] Drug Allergy 5 Mental Status Change [facility] Work Phone: (2 sources) metFORMIN Drug Allergy 3 Diarrhea [facility] (3 sources) venlafaxine; Translations: [VENLAFAXINE] Drug Allergy 4 [facility] (2 sources) Niacin Drug Allergy 3 [facility] (1 source) Cephalexin Drug Allergy 5 [facility] (1 source) metFORMIN Drug Allergy 5 [facility] (1 source) Niacin Drug Allergy 5 [facility] (1 source) venlafaxine Drug Allergy 5 [facility] Medications Current Medications Medication Drug [...] 1 tab po q6h as needed HYDROCODONE-ACETAMINOPHEN [id number] Rica Padgett, acetaminophen 325 mg / oxyCODONE [...] affected area daily as needed DICLOFENAC SODIUM [id number] Rica Padgett, Diclofenac Sodiu m (Voltaren) 1 [...] Start: 02-03-2023 take 1 capsule by mo ut three times daily gabapentin 300 mg oral [...] MG TABS 1 po daily HYDROXYZINE HCL [id number] Rica Padgett DO Start: 08-30-2013 take 100 [...] Comment on above: Take 1 tablet by ramen th twice daily as needed. meloxicam 7.5 [...] 20 MG TABS 1 po daily RIVAROXABAN [id number] Adebayo Saunders DO take 2 tablets by [facility] once daily rivaroxaban (XARELTO) 10 mg tablet [...] tablet (19 sources) HMG-CoA Reductase Inhibitor Start: 02-23-20 18 take 1 tablet by mouth once daily at bedtime simvastatin (Zocor) 20 mg tablet Take 1 tablet (20 mg) by mouth once daily at bedtime. 0 04/27/2023 Active Comment on above: Take 20 mg by mouth daily at bedtime. tiZANidine 4 mg oral tablet (20 sources) Central alpha-2 Adrenergic Agonist Start: 06-29-20 23 take 1 tablet by mouth three times [...] Drug Class(es) Dates Sig (Normalized) Sig (Original) [id number] actuat albuterol 0.09 mg/actuat metered dose inhaler (8 sources) beta2-Adrenergic Agonist Start: 04-21-2018 End: 10-30-2018 take 1 puff(s) by inhalation every four hours as needed Albuterol Sulfate Discontinued 1 - 2 PUFF INHALATION EVERY 4 HOURS NEEDED April 20, 2018 11:00pm October 30, 2018 [...] on above: Take 1,500 mg by armen once daily. busPIRone hydrochloride 10 mg oral tablet (1 source) Start: 2 End: 5 take 1 tablet by mouth twice daily busPIRone (BUSPAR) 10 mg ORAL tablet Indications: Adjustment disorder with anxious mood Take 1 tablet by mouth twice daily. 60 tablet 3 10/20/2011 03/04/2015 Discontinued (Discontinued by Patient) Comment on above: Take [address] [facility] twice daily. calcium chloride 0.0014 meq/ml / [...] injector Discontinued 3 MG SC EVERY WEEK 6 June 09, 2022 2:45pm August 23, 2022 9:35am Start: 06-09-2022 Dulaglutide (T rulicity) 3 mg/0.5 mL pen injector Active 3 MG SC EVERY WEEK 6 June 09, 2022 2:45pm Start: 05-19-2022 End: 06-09-2022 Dulaglutide (Trulicity) 3 mg /0.5 mL pen injector Discontinued 3 MG SC EVERY WEEK 2 May 18, 2022 11:00pm June 09, 2022 [...] on above: Take by mouth. estrogens, conjugated (fci) 0.625 mg/ml vaginal cream (8 sources) Estrogen Start : 10-30 End: 08-19 Conjugated Estrogens (Premarin) 0.625 mg/gram cream Discontinued 0 .Route .COMPLEX 30 October 30, 2018 12:00am August 19, 2020 [...] MG TABS 1 po daily LISINOPRIL-HYDROCHLOROTH IAZIDE [id number] Rica Padgett DO Start: 12-06-2014 End: 09-17-2022 [...] 5 mg/ml injection (6 sources) Benzodiazepine Start: 024 End: 024 midazolam PF (Versed) injection MULTIVITAMIN ORAL (4 [...] Date Documented Da te Episodic/Chronic Abdominal pain (4 sources) Right upper quadrant pain; Translations: [Unspecified abdominal pain] Onset: 7 12-09-2016 Episodic Diabetes mellitus with complications (7 sources) Neuropathy due to diabetes mellitus; Translations: [...] disease without esophagitis] 09-21-2022 Chronic Essential hypertension (9 sources) Benign essential hypertension; Translations: [Hypertensive disorder] Onset: 6 12-08-2015 Chronic Fracture of lower limb (2 sources) Stress fracture, left foot, subsequent encounter for fracture with delayed healing; Translations: [Stress fracture, left foot, initial encounter for fracture] Onset: 5 Episodic Headache; including migraine (1 source) Headache; including [...] disease (1 source) Fibromyalgia; Translations: [Fibromyalgia] Onset: 0 Episodic Other connective tissue disease (1 source) Radial styloid tenosynovitis [de Quervain]; Translations: [Radial styloid tenosynovitis [de Quervain]] Onset: 0 Episodic Other connective tissue disease (8 sources) H/O: musculoskeletal disease; Translations: [Personal history of other diseases of the musculoskeletal system and connective tissue] 09-21-2022 Episodic Other gastrointestinal disorders (2 sources) Diarrhea; Translations: [Diarrhea, unspecified] 09-06-2023 Episodic Other gastrointestinal disorders (3 sources) Diarrhea, unspecified; Translations: [Diarrhea, unspecified] Onset: 4 Episodic Other lower respiratory disease (2 sources) [...] nutritional; endocrine; and metabolic disorders (2 sources) Body mass index (BMI) 39.0-39.9, adult; Translations: [Body mass index (BMI) 39.0-39.9, adult] Onset: 0 Chronic Other nutritional; endocrine; and metabolic disorders (8 sources) Obesity; Translations: [Obesity, unspecified] Onset: 1 12-31-2010 Chronic Other nutritional; endocrine; and metabolic disorders (2 sources) Alveolar hypoventilation; Translations: [Morbid (severe) obesity with alveolar hypoventilation] 09-21-2022 Chronic Other nutritional; endocrine; and metabolic disorders (1 source) Morbid (severe) obesity due to excess calories; Translations: [Morbid (severe) obesity due to excess calories] Onset: 5 Chronic Other nutritional; endocrine; and [...] foot] Onset: 05-19-2022 Episodic Malaise and fatigue (3 sources) Fatigue; Translations: [Other fatigue] Onset: 12-08-2015 12-08-2015 Episodic Mood disorders (2 sources) Mood disorders Onset: 10-02-2022 Resolved: 10-02-2022 10-02-2022 Other injuries and conditions due to external causes (1 source) Encounter for examination and observation following other accident; Translations: [Encounter for examination and observation following other accident] Onset: 11-25-2024 Episodic Other lower respiratory disease (4 sources) Hypoxemia; Translations: [Hypoxemia] Onset: 07-30-2024 09-17-2022 Episodic Residual codes; unclassified (5 sources) Family history of diabetes mellitus; Translations: [Family history of diabetes mellitus] Onset: 12-31-2010 12-31-2010 Episodic Unclassified (3 sources) calcium calcifications 03-17-2022 Unclassified (3 sources) hx of plantar fasciotomy 03-17-2022 Results Test Name Value Interpretation Reference Range Facility MR/BMSNikhilBPon 03-11-2025 MR/BMSNikhilBP [address], [address] [place] [address] OFFICE VISIT Date of Service: 03/11/25 MR#: [id number] Acct: [id number] Name: FLEX WOOTEN Rep #: [id number] : 1960 Provider: Dr. Pj Anglin se, DO Age/Sex: 64/F Location[place] [facility] Status: Signed Intake Vital Signs 01/07/25 09:03 03/11/25 10:26 Height 5 ft 4 in 5 ft 4 in Weight: 271 lb 263 lb BMI 46.5 45.1 BP 137/77 H 133/72 H Blood Pressure Location Lt brachial Lt brachial Position Sitting Sitting Respiration 16 16 Pulse 92 80 Pulse Source Monitor Monitor BP Intake Visit Reasons: 2 M FU Accompanied by: Self Allergies niacin Allergy (Verified 03/11/25 10:36) Itching venlafaxine Adverse Reaction (Severe, Verified 03/11/25 10:36) Vomiting metformin Adverse Reaction (Intermediate, Verified 03/11/25 10:36) Diarrhea cephalexin (From Keflex) Adverse Reaction (Verified 03/11/25 10:36) Other Medications ???Medication ???Instructions ???Recorded ???Confirmed ???Type omeprazole 40 mg capsule,delayed 40 mg PO DAILY GERD 08/30/1303/11 History release trazodone 100 mg tablet 100 mg PO QHS mood 08/30/13 History levothyroxine 50 mcg tablet 50 mcg PO DAILY thyroid 10/21/17 0 03/11/25 History simvastatin 20 mg tablet 20 mg PO DAILY cholesterol 8 03/11/25 History atenolol 25 mg tablet 25 mg PO DAILY heart 05/18/1902/26 History methotrexate sodium 2.5 mg tablet 20 mg PO FR fibromyalgia 08/19/20 03/11/25 History leucovorin calcium 10 mg tablet 5 mg PO FR supplement 12/08/20 History cholecalciferol (vitamin D3) 25 25 mcg PO DAILY supplement 3 03/11/25 History mcg (1,000 unit) capsule lisinopril 20 mg tablet 20 mg PO DAILY blood pressure #30 09/17/22 03/11/25 Rx tabs hydroxyzine pamoate 50 mg capsule 50 mg PO QHS mood #30 caps 03/11/25 Rx clonidine HCl 0.1 mg tablet 0.1 mg PO Q8H PRN PRN 03/03/24 Rx Anxiety/tremors #1 TAB folic acid 1 mg tablet 1 mg PO BREAKFAST #30 tabs 4 03/11/25 Rx insulin lispro 100 unit/mL See Rx Instructions .Route 4 03/11/25 Rx subcutaneous pen (Humalog KwikPen .COMPLEX diabetes #15 mL (U-100) Insulin) lorazepam 1 mg tablet 1 mg PO TID mood 05/07/24 03/11/25 History oxycodone-acetaminophen 5 mg-325 1 tab PO BID 07/27/24 03/11/25 His tory mg tablet tizanidine 4 mg tablet 4 mg PO TID 07/27/24 03/11/25 Hist ory lancets-blood glucose test #1 ea 07/28/24 03/11/25 Rx strips-pen needles with gauze kit insulin lispro 100 unit/mL 40 unit (0.4 mL) subcut TIDWMEAL 1 10/21/23 03/11/25 Rx subcutaneous pen (Humalog KwikPen #108 mL (U-100) Insulin) gabapentin 100 mg capsule 100 mg PO TID nerve pain 90 days 0 09/03/24 03/11/25 Rx #270 caps blood-glucose sensor (FreeStyle #6 ea 09/21/24 03/11/25 Rx Prema 3 Plus Sensor device) sumatriptan succinate 25 mg tablet See Rx Instructions PO .COMPLEX 10/12/24 03/11/25 Rx (Imitrex) #10 tabs semaglutide 1 mg/dose (4 mg/3 mL) 1 mg (0.75 mL) subcut QWEEK #3 mL 10/30/24 03/11/25 Rx subcutaneous pen injector (Ozempic) insulin glargine-yfgn 100 unit/mL 52 unit (0.52 mL) subcut QHS 10/2703/11/25 Rx (3 mL) subcutaneous pen diabetes #5 pens escitalopram oxalate 20 mg tablet 20 mg PO DAILY for depressive 04/2203/11/25 Rx disorder #90 TABLETS Have you fallen in the past year?: Yes [facility] History Diabetes mellitus with hyperglycemia HTN (hypertension) Uncontrolled diabetes mellitus Diabetic polyneuropathy Essential (primary) hypertension Hyperlipidemia Insomnia 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 Hallux rigidus, left foot MRSA infection Uses wheelchair Walker as ambulation aid High cholesterol CPAP (continuous positive airway pressure) dependence Sleep apnea Hypothyroidism Anxiety disorder, unspecified Chronic pain Depressive 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 Obesity hypoventilation syndrome Obesity Normal stress echocardiogram Wears glasses PTSD (post-traumatic stress disorder) Depression Anxiety Thyroid disease Insulin dependent diabetes mellitus Ambulates with cane Fibromyalgia Arthritis DVT (deep venous thrombosis) High cholesterol Migraine headache Back pain Gait instability Syncope Dietary restriction History of diverticulitis Gastric reflux Former smoker ASV (adaptive servo-ventilation) use counseling On home oxygen therapy Shortness of breath on exertion Leg cramps History of pain when walking History of edema History of stress test Hypertension Implantable intrathecal infusion pump present Mixed connective tissue disease Osteoarthrit (more content not included)... Normal [facility] Extremity Lower without Cont raon 02-09-2025 Extremity Lower without Contra [facility] [address] [place] [address] Extremity Lower without Contra MR#: [id number] Acct: [id number] Name: FLEX WOOTEN Rep #: [id number] : 1960 F 64 From: Bud Sadler DO PCP: Dr. Rica Padgett DO Status: REG CLI Study: Extremity Lower without Contra Date of Exam: 0 02/09/25 Exam# [id number] Ordering Dr: Rafi Berry DPJuliet PROCEDURE: EXTREMITY LOWER WITHOUT CONTRA 02/09/2025 REASON FOR EXAM: STRESS FX TECHNIQUE: EXTREMITY LOWER WITHOUT CONTRA Coronal and Sagittal reconstruction series were provided. One or more dose reduction techniques were used (e.g., Automated exposure control, adjustment of the mA and/or kV according to patient size, use of iterative reconstruction technique). RADIATION DOSE SUMMARY: CTDlvol: 15 0.35 mGy DLP: 484.25 mGycm COMPARISON: None. FINDINGS: Bones: Normal mineralization. No displaced fracture identified Joints: Ankle joint unremarkable Soft Tissues: Unremarkable. CT/Extremity Lower without Contra IMPRESSION: No fracture identified. Grossly maintained alignment and in position Reading [facility] CC: DPJuliet Berry; Dr. Rica Padgett DO Avionics Safety Inspector: Signed Normal [facility] CBC W/Diff, Automatedon 06 Absolute Lymph 2.35 X10 3/uL Normal 0.83-4.51 [facility] Comment on above: Performed By: #### L 501.080 #### [facility] [address] [place], [address] Absolute Neut 6.7 X10 3/uL Normal 2.0-7.7 [facility] Comment on above: Performed By: #### L 501.080 #### [facility] [address] [place], [address] Basophils/100 WBC (Bld) 0.6 % Normal 0-1 [facility] Comment on above: Performed By: #### L 501.080 #### [facility] [address] [place], [address] Eosinophils/100 WBC (Bld) 1.0 % Normal 0-5 [facility] Comment on above: Performed By: #### L 501.080 #### [facility] [address] [place], [address] Erythrocyte distribution width (RBC) [Ratio] 13.2 % Normal 11.6-14.6 [facility] Comment on above: Performed By: #### L 501.080 #### [facility] [address] [place], [address] Hematocrit (Bld) [Volume fraction] 43.4 % Normal 37-47 [facility] Comment on above: Performed By: #### L 501.080 #### [facility] [address] [place], [address] Hemoglobin (Bld) [Mass/Vol] 14.5 g/dL Normal 12.0-15.0 [facility] Comment on above: Performed By: #### L 501.080 #### [facility] [address] [place], [address] IG% 0.500 Normal 0.0-0.9 [facility] Comment on above: Result Comment: IG% - Immature Granulocytes (promyelocytes, myelocytes and metamyelocytes) > 1% indicates that a LEFT SHIFT is Present. Performed By: #### L 501.080 #### [facility] [address] [facility] [place], [address] Lymphocytes/100 WBC (Bld) 24.2 % Normal 19-41 [facility] Comment on above: Performed By: #### L 501.080 #### [facility] [address] [place], [address] MCH (RBC) [Entitic mass] 29.4 pg Normal 27.0-32.0 [facility] Comment on above: Performed By: #### L 501.080 #### [facility] [address] [place], [address] MCHC (RBC) [Mass/Vol] 33.4 g/dL Normal 32-36 [facility] Comment on above: Performed By: #### L 501.080 #### [facility] [address] [place], [address] MCV (RBC) [Entitic vol] 87.9 fL Normal 81-99 [facility] Comment on above: Performed By: #### L 501.080 #### [facility] [address] [place], [address] Monocytes/100 WBC (Bld) 5.1 % Normal 0-10 [facility] Comment on above: Performed By: #### L 501.080 #### [facility] [address] [place], [address] Neutrophils/100 WBC (Bld) 68.6 % Normal 47-70 [facility] Comment on above: Performed By: #### L 501.080 #### [facility] [address] [place], [address] Nucleated RBC (Bld) [#/Vol] 0 10*3/uL Normal 0-5 [facility] Comment on above: Performed By: #### L 501.080 #### [facility] [address] [place], [address] Platelet mean volume (Bld) [Entitic vol] 9.6 fL Normal 6.2-12.0 [facility] Comment on above: Performed By: #### L 501.080 #### [facility] [address] [place], [address] Platelets (Bld) [#/Vol] 251 10*3/uL Normal 150-450 [facility] Comment on above: Performed By: #### L 501.080 #### [facility] [address] [place], [address] RBC (Bld) [#/Vol] 4.94 10*6/uL Normal 4.2-5.4 [facility] Comment on above: Performed By: #### L 501.080 #### [facility] [address] [place], [address] RDW SD 41.8 fl Normal 35.1-43.9 [facility] Comment on above: Performed By: #### L 501.080 #### [facility] [address] [place], [address] WBC (Bld) [#/Vol] 9.7 10*3/uL Normal 4.4-11.0 [facility] Comment on above: Performed By: #### L 501.080 #### [facility] [address] [place], [address] CRPon 02-04-2025 C-REACTIVE PROT 11.80 mg/L High 0.0-3.0 [facility] Comment on above: Performed By: #### L 100.0100, L501.1400, L101.9900, L501.6710, L501.59665, L501.5200, L506.0400, L500.4050, L501.9520, L501.2450 ####[facility] [id number] [place], [address] Comprehensive Metabolic Prof ilon 02-04-2025 Albumin [Mass/Vol] 4.3 g/dL Normal 3.4-4.8 [facility] Comment on above: Performed By: #### L 501.080 #### [facility] [address] [place], [address] Albumin/Globulin [Mass ratio] 1.4 {ratio} Normal 0.9-2.4 [facility] Comment on above: Performed By: #### L 501.080 #### [facility] [address] [place], [address] ALK PHOS 112 U/L High 35-104 [facility] Comment on above: Performed By: #### L 501.080 #### [facility] [address] [place], [address] ALT [Catalytic activity/Vol] 80 U/L High <=34 [facility] Comment on above: Performed By: #### L 501.080 #### [facility] [address] [place], [address] AST [Catalytic activity/Vol] 60 U/L High <=31 [facility] Comment on above: Performed By: #### L 501.080 #### [facility] [address] [place], [address] Bilirubin [Mass/Vol] 0.40 mg/dL Normal 0.00-1.30 [facility] Comment on above: Performed By: #### L 501.080 #### [facility] [address] [place], [address] BUN/CRE 13.8 RATIO Normal 10-20 [facility] Comment on above: Performed By: #### L 501.080 #### [facility] [address] [place], [address] Calcium [Mass/Vol] 9.5 mg/dL Normal 7.6-11.0 [facility] Comment on above: Performed By: #### L 501.080 #### [facility] [address] [place], [address] Chloride [Moles/Vol] 101 mmol/L Normal 98-108 [facility] Comment on above: Performed By: #### L 501.080 #### [facility] [address] [place], [address] CO2 [Moles/Vol] 24.5 mmol/L Normal 21.0-32.0 [facility] Comment on above: Performed By: #### L 501.080 #### [facility] [address] [place], [address] Creatinine [Mass/Vol] 0.78 mg/dL Normal 0.70-1.20 [facility] Comment on above: Performed By: #### L 501.080 #### [facility] [address] [place], [address] GAP 16 High 5-15 [facility] Comment on above: Performed By: #### L 501.080 #### [facility] [address] [place], [address] GFR/1.73 sq M.predicted among non-blacks MDRD (S/P/Bld) [Vol rate/Area] 84 mL/min/{1.73_m2} Normal >60 [facility] Comment on above: Result Comment: mL/m in/1.73m2 CKD-EPI Creatinine Equation (2020) Performed By: #### L 501.080 #### [facility] [address] [place], [address] Globulin (S) [Mass/Vol] 3.1 g/dL Normal 2.2-4.2 [facility] Comment on above: Performed By: #### L 501.080 #### [facility] [address] [place], [address] Glucose [Mass/Vol] 247 mg/dL High 70-99 [facility] Comment on above: Performed By: #### L 501.080 #### [facility] [address] [place], [address] Potassium [Moles/Vol] 4.6 mmol/L Normal 3.3-5.1 [facility] Comment on above: Performed By: #### L 501.080 #### [facility] [address] [place], [address] Sodium [Moles/Vol] 141 mmol/L Normal 133-145 [facility] Comment on above: Performed By: #### L 501.080 #### [facility] [address] [place], [address] T PROT 7.4 g/dL Normal 5.9-8.4 [facility] Comment on above: Performed By: #### L 501.080 #### [facility] [address] [place], [place], [address] Urea nitrogen [Mass/Vol] 11 mg/dL Normal 4-19 [facility] Comment on above: Performed By: #### L 501.080 #### [facility] [address] [place], [place], [address] Erythrocyte Sed Rateon 02-04 SED RATE 7 mm/hr Normal 0-30 [facility] Comment on above: Performed By: #### L 501.080 #### [facility] [address] [place], [address] Free T3on 02-04-2025 Free T3 [Mass/Vol] 2.4 pg/mL Normal 2.18-3.98 [facility] Comment on above: Performed By: #### L 100.0100, L501.1400, L101.9900, L501.6710, L501.04082, L501.5200, L506.0400, L500.4050, L501.9520, L501.2450 ####[facility] [address] [place], [place], [id number] Lipaseon 02-04-2025 Lipase [Catalytic activity/Vol] 42 U/L Normal 13-75 [facility] Comment on above: Result Comment: Sherri martinez note: LIPASE revised reference range effective 22. New Lipase methodology. Expected to produce lower values than the previous assay method. NEW Reference Range: 13 - 75 U/L Performed By: #### L 501.080 #### [facility] [address] [place], [address] Magnesiumon 02-04-2025 Magnesium [Mass/Vol] 1.8 mg/dL Normal 1.5-2.2 [facility] Comment on above: Performed By: #### L 100.0100, L501.1400, L101.9900, L501.6710, L501.30302, L501.5200, L506.0400, L500.4050, L501.9520, L501.2450 ####[facility] [address] [place], [place], [id number] T4 Free Directon 02-04-2025 T4 FREE DIRECT 1.20 ng/dL Normal 0.76-1.46 [facility] Comment on above: Performed By: #### L 100.0100, L501.1400, L101.9900, L501.6710, L501.06444, L501.5200, L506.0400, L500.4050, L501.9520, L501.2450 ####[facility] [address] [place], [address] Thyroid Stim Hormone (TSH)on 02-04-2025 TSH 0.755 uIU/mL Normal 0.300-4.200 [facility] Comment on above: Performed By: #### L 100.0100, L501.1400, L101.9900, L501.6710, L501.85429, L501.5200, L506.0400, L500.4050, L501.9520, L501.2450 ####[facility] [address] [place], [place], [id number] Uric Acidon 02-04-2025 URIC 6.8 mg/dL High 2.6-6.0 [facility] Comment on above: Result Comment: The drugs N-Acetylcysteine and Metamizole may falsely depress this assay. Performed By: #### L 501.080 #### [facility] [address] [place], [address] MR/BMS.BPon 01-07-2025 MR/BMS.BP [address], [address] [place] [address] OFFICE VISIT Date of Service: 01/07/25 MR#: [id number] Acct: [id number] Name: FLEX WOOTEN Rep #: [id number] : 1960 Provider: Dr. Pj Anglin se, DO Age/Sex: 64/F Location[place] [facility] Status: Signed Intake Vital Signs 09/03/24 11:09 11/20/24 03:03 01/07/25 09:03 Height 5 ft 4 in 5 ft 4 in 5 ft 4 in Weight: 271 lb BMI 46.5 BP 137/77 H Blood Pressure Location Lt brachial Position Sitting Respiration 16 Pulse 92 Pulse Source Monitor BP Intake Visit Reasons: 4 M FU Accompanied by: Allergies niacin Allergy (Verified 01/07/25 09:08) Itching venlafaxine Adverse Reaction (Severe, Verified 01/07/25 09:08) Vomiting metformin Adverse Reaction (Intermediate, Verified 01/07/25 09:08) Diarrhea cephalexin (From Keflex) Adverse Reaction (Verified 01/07/25 09:08) Other Medications ???Medication ???Instructions ???Recorded ???Confirmed ???Type omeprazole 40 mg capsule,delayed 40 mg PO DAILY GERD 08/30/1301/07 History release trazodone 100 mg tablet 100 mg PO QHS mood 08/30/13 History levothyroxine 50 mcg tablet 50 mcg PO DAILY thyroid 10/21/17 0 01/07/25 History simvastatin 20 mg tablet 20 mg PO DAILY cholesterol 8 01/07/25 History atenolol 25 mg tablet 25 mg PO DAILY heart 05/18/1912/27 History methotrexate sodium 2.5 mg tablet 20 mg PO FR fibromyalgia 08/19/20 01/07/25 History leucovorin calcium 10 mg tablet 5 mg PO FR supplement 12/08/2008/22 History cholecalciferol (vitamin D3) 25 25 mcg PO DAILY supplement 3 01/07/25 History mcg (1,000 unit) capsule lisinopril 20 mg tablet 20 mg PO DAILY blood pressure #30 09/17/22 01/07/25 Rx tabs hydroxyzine pamoate 50 mg capsule 50 mg PO QHS mood #30 caps 01/07/25 Rx clonidine HCl 0.1 mg tablet 0.1 mg PO Q8H PRN PRN 03/03/2408/22 Rx Anxiety/tremors #1 TAB folic acid 1 mg tablet 1 mg PO BREAKFAST #30 tabs 07/06/2 4 01/07/25 Rx insulin lispro 100 unit/mL See Rx Instructions .Route 4 01/07/25 Rx subcutaneous pen (Humalog KwikPen .COMPLEX diabetes #15 mL (U-100) Insulin) lorazepam 1 mg tablet 1 mg PO TID mood 05/07/24 01/07/25 History oxycodone-acetaminophen 5 mg-325 1 tab PO BID 07/27/24 01/07/25 His tory mg tablet tizanidine 4 mg tablet 4 mg PO TID 07/27/24 01/07/25 Hist ory lancets-blood glucose test #1 ea 07/28/24 01/07/25 Rx strips-pen needles with gauze kit insulin lispro 100 unit/mL 40 unit (0.4 mL) subcut TIDWMEAL 1 10/21/23 01/07/25 Rx subcutaneous pen (Humalog KwikPen #108 mL (U-100) Insulin) escitalopram oxalate 20 mg tablet 20 mg PO DAILY mood #90 tabs 01/02/2001/07/25 Rx gabapentin 100 mg capsule 100 mg PO TID nerve pain 90 days 0 09/03/24 01/07/25 Rx #270 caps blood-glucose sensor (FreeStyle #6 ea 09/21/24 01/07/25 Rx Prema 3 Plus Sensor device) sumatriptan succinate 25 mg tablet See Rx Instructions PO .COMPLEX 10/12/24 01/07/25 Rx (Imitrex) #10 tabs semaglutide 1 mg/dose (4 mg/3 mL) 1 mg (0.75 mL) subcut QWEEK #3 mL 10/30/24 01/07/25 Rx subcutaneous pen injector (Ozempic) insulin glargine-yfgn 100 unit/mL 52 unit (0.52 mL) subcut QHS 10/2701/07/25 Rx (3 mL) subcutaneous pen diabetes #5 pens Have you fallen in the past year?: No PFSH Medical History Diabetes mellitus with hyperglycemia HTN (hypertension) Uncontrolled diabetes mellitus Diabetic polyneuropathy Essential (primary) hypertension Hyperlipidemia Insomnia 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 Hallux rigidus, left foot MRSA infection Uses wheelchair Walker as ambulation aid High cholesterol CPAP (continuous positive airway pressure) dependence Sleep apnea Hypothyroidism Anxiety disorder, unspecified Chronic pain Depressive 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 Obesity hypoventilation syndrome Obesity Normal stress echocardiogram Wears glasses PTSD (post-traumatic stress disorder) Depression Anxiety Thyroid disease Insulin dependent diabetes mellitus Ambulates with cane Fibromyalgia Arthritis DVT (deep venous thrombosis) High cholesterol Migraine headache Back pain Gait instability Syncope Dietary restriction History of diverticulitis Gastric reflux Former smoker ASV (adaptive servo-ventilation) use counseling On home oxygen therapy Shortness of breath on exertion Leg cramps History of pain when walking History of edema History of stress test Hypertension Implantable intrathecal infusion pump present Mixed connective tissue disease Osteoarthritis History of DVT (deep vein thrombosis) History (more content not included)... Normal [facility] Basic Metabolic Profile (BMP )on 01-03-2025 BUN/CRE 18.4 RATIO Normal 10-20 [facility] Comment on above: Performed By: #### L 500.2500, L506.1001 #### [facility] [address] [place], [address] Calcium [Mass/Vol] 8.7 mg/dL Normal 7.6-11.0 [facility] Comment on above: Performed By: #### L 500.2500, L506.1001 #### [facility] [address] [place], [address] Chloride [Moles/Vol] 100 mmol/L Normal 98-108 [facility] Comment on above: Performed By: #### L 500.2500, L506.1001 #### [facility] [address] [place], [address] CO2 [Moles/Vol] 25.8 mmol/L Normal 21.0-32.0 [facility] Comment on above: Performed By: #### L 500.2500, L506.1001 #### [facility] [address] [place], [address] Creatinine [Mass/Vol] 0.71 mg/dL Normal 0.70-1.20 [facility] Comment on above: Performed By: #### L 500.2500, L506.1001 #### [facility] [address] [place] [place], [address] GAP 12 Normal 5-15 [facility] Comment on above: Performed By: #### L 500.2500, L506.1001 #### [facility] [address] [place] [place], [address] GFR/1.73 sq M.predicted among non-blacks MDRD (S/P/Bld) [Vol rate/Area] 94 mL/min/{1.73_m2} Normal >60 [facility] Comment on above: Result Comment: mL/m in/1.73m2 CKD-EPI Creatinine Equation (2020) Performed By: #### L 500.2500, L506.1001 #### [facility] [address] [place], [address] Glucose [Mass/Vol] 293 mg/dL High 70-99 [facility] Comment on above: Performed By: #### L 500.2500, L506.1001 #### [facility] [address] [place], [address] Potassium [Moles/Vol] 4.8 mmol/L Normal 3.3-5.1 [facility] Comment on above: Performed By: #### L 500.2500, L506.1001 #### [facility] [address] [place], [address] Sodium [Moles/Vol] 138 mmol/L Normal 133-145 [facility] Comment on above: Performed By: #### L 500.2500, L506.1001 #### [facility] [address] [place] [place], [address] Urea nitrogen [Mass/Vol] 13 mg/dL Normal 4-19 [facility] Comment on above: Performed By: #### L 500.2500, L506.1001 #### [facility] [address] [place], [address] Vitamin D,25 Hydroxyon 01-03 Vitamin D 25-OH 32.3 ng/mL Normal 30-100 [facility] Comment on above: Result Comment: Ashley min D Status Deficiency: <20 ng/mL (50nmol/L) Insufficiency: 20-30 ng/mL (50-75 nmol/L) Sufficiency: 30-100 ng/mL (75-250 nmol/L) Toxicity: >100 ng/mL (>250 nmol/L) Performed By: #### L 500.2500, L5061009 #### [facility] [address] [place], [address] Echo Complete W/ Contraston 11-29-2024 Echo Complete W/ Contrast [facility] [address] [place] [address] Echo Complete W/ Contrast 11/29/24 1411 MR#: [id number] Acct: [id number] Name: FLEX WOOTEN Rep #: [id number] : 1960 64 From: Matt Oglesby MD Attending Dr: Dr. Deuce Shaw MD Status: REG CLI Ordering Dr: Deuce Shaw MD Date: 11/29/24 Location: [facility] Sex: F C Admitted: Reason For Study Reason For Study: CSA, CRF, HYPOXIA Procedure This was a 2D Doppler, Color Flow transthoracic echocardiogram. The study was technically difficult. Due to body habitus and suboptimal accoustic apical windows. Contrast injection was performed. Exam performed in department. Left Ventricle Normal LV size. Left ventricular systolic function is normal. The left ventricular ejection fraction is 60 %. No regional wall motion abnormalities noted. Right Ventricle Normal RV size. Normal systolic function. Atria Normal left atrium. Normal right atrium. Mitral Valve Normal mitral valve. Tricuspid Valve Normal tricuspid valve. Aortic Valve Trisinus/trileaflet aortic valve. Pulmonic Valve The pulmonic valve is not well visualized. Great Vessels Normal aortic root. The pulmonary artery is normal size. Normal inferior vena cava. Pericardium/Pleural No pericardial effusion. Medication 22 gauge I.V. with prn adaptor inserted into right arm. Diluted definity 1.5ml given slow IV push to enhance endocardial definition. MMode/2D Measurements Calculations LVIDd: 5.4 cm IVSd: 1.1 cm Ao root diam: 3.2 cm LVIDs: 3.4 cm LVPWd: 1.0 cm RVDd: 3.2 cm FS: 37.3 % LAV(MOD-bp): 65.1 ml LVAd ap4: 25.6 cm2 SV(MOD-sp4): 44.9 ml LAV(MOD-bp) Indexed: 29.8 ml/m2 LVLd ap4: 8.2 cm SI(MOD-sp4): 20.5 ml/m2 LAV(MOD-sp2): 58.7 ml EDV(MOD-sp4): 65.6 ml LAV(MOD-sp4): 72.8 ml EDV(sp4-el): 67.3 ml LVAs ap4: 13.3 cm2 LVLs ap4: 7.1 cm ESV(MOD-sp4): 20.7 ml ESV(sp4-el): 21.2 ml EF(MOD-sp4): 68.4 % EF(sp4-el): 68.6 % SV(sp4-el): 46.2 ml LA A4 area: 23.8 cm2 LA dimension(2D): 4.0 cm TAPSE: 2.4 cm Time Measurements MV dec time: 0.17 sec Doppler Measurements Calculations MV E max lily: 101.6 cm/sec Lat Peak E' Lily: 18.3 cm/sec Med Peak E' Lily: 9.9 cm/sec MV A max lily: 100.3 cm/sec E/E' lat: 5.6 E/E' med: 10.3 MV E/A: 1.0 MV V2 max: 105.7 cm/sec MV P1/2t max lily: 97.9 cm/sec Ao V2 max: 154.4 cm/sec MV max P.5 mmHg MV P1/2t: 73.9 msec Ao max P.5 mmHg MV V2 mean: 66.7 cm/sec Ao V2 mean: 106.8 cm/sec MV mean P.0 mmHg MV dec slope: 388.2 cm/sec2 Ao mean P.1 mmHg MV V2 VTI: 30.3 cm MVA(P1/2t): 3.0 cm2 Ao V2 VTI: 31.7 cm AV (velocity ratio): 0.84 LV V1 max: 121.1 cm/sec PA V2 max: 99.9 cm/sec TR max lily: 207.6 cm/sec LV V1 max P.9 mmHg PA V2 mean: 75.6 cm/sec TR max P.2 mmHg LV V1 mean P.0 mmHg LV V1 mean: 81.1 cm/sec LV V1 VTI: 26.6 cm ECHO/Echo Complete W/ Contrast Interpretation Summary Normal LV size. Left ventricular systolic function is normal. The left ventricular ejection fraction is 60 %. Contrast injection was performed. Ordering Physician: Deuce Shaw V Referring Physician: Rica Padgett Performed By: Niya Espinal, HAO, RVT 11/29/241656 Date Matt Oglesby MD CC: Dr. Rica Padgett DO; Dr. Deuce Shaw MD Date Dictated: 11/29/24 1411 Date Transcribed: 11/29/241656 Avionics Safety Inspector: Signed Normal [facility] Brain/Head without Contrasto n 11-20-2024 Brain/Head without Contrast [facility] Services [address] [place] [id number] Brain/Head without Contrast MR#: [id number] Acct: [id number] Name: FLEX WOOTEN Rep #: [id number] : 1960 F 64 From: Deuce Thompson MD PCP: Dr. Rica Padgett DO Status: PRE ER Study: Brain/Head without Contrast Date of Exam: 10/28 01/20 Exam# [id number] Ordering Dr: Tre Flores DO EXAM: Noncontrast head CT CLINICAL HISTORY: Injury/pain COMPARISON: None available TECHNIQUE: Noncontrast head CT with coronal and sagittal reformatted images FINDINGS: Mild off axis imaging. No intracranial hemorrhage, mass effect or calvarial fracture. The ventricles are within limits and midline. The wallace-white differentiation appears preserved. Mild appearing convexity volume loss, atrophy. The paranasal sinuses, mastoids and orbits appear within limits. CT/Brain/Head without Contrast IMPRESSION: No intracranial hemorrhage, mass effect or calvarial fracture. Reading Location: [facility] CC: Dr. Tre Flores DO; Dr. Rica Padgett DO Avionics Safety Inspector: Signed Normal [facility] Emergency Department Summary on 11-20-2024 Emergency Department Summary [facility] Medical Records Department [address] [place] [address] Emergency Department Summary 11/20/24 MR#: [id number] Acct: [id number] Name: FLEX WOOETN Rep #: [id number] : 1960 64 From: Tre Flores DO PCP: Dr. Rica Padgett DO Status:DEP ER Location: ED HPI HPI - Fall History of Present Illness Chief Complaint: Fall Informant: patient Occured/Mechanism Occurred: Today Mechanism/Context: Yes same level fall Pain/Injury Location: Face, back, and right knee Pain Location: face, neck and back Quality of Pain: Sharp and - (Cramping, pulling) Worsened by: Movement Relieved by: Nothing Associated Symptoms Associated Symptoms: Negative for Parasthesias, Weakness, Loss of function, Inability to ambulate, Loss of consciousness or Amnesia Narrative Narrative: Patient presents after a fall that occurred tonight. Patient states she was getting up off of the toilet and her right leg was asleep. Patient states she fell forward. Patient states she hit her head but did not lose consciousness. Patient complains of pain in her back. Patient describes it as sharp, cramping, and pulling. Patient states her pain is worse with any movement. Patient also states she scraped her right knee. Patient denies any paresthesias or weakness. Patient denies any other injuries. 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 Hallux rigidus, left foot MRSA infection Uses wheelchair Walker as ambulation aid High cholesterol CPAP (continuous positive airway pressure) dependence Sleep apnea Hypothyroidism Anxiety disorder, unspecified Chronic pain Depressive 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 Obesity hypoventilation syndrome Obesity Normal stress echocardiogram Wears glasses PTSD (post-traumatic stress disorder) Depression Anxiety Thyroid disease Insulin dependent diabetes mellitus Ambulates with cane Fibromyalgia Arthritis DVT (deep venous thrombosis) High cholesterol Migraine headache Back pain Gait instability Syncope Dietary restriction History of diverticulitis Gastric reflux Former smoker ASV (adaptive servo-ventilation) use counseling On home oxygen therapy Shortness of breath on exertion Leg cramps History of pain when walking History of edema History of stress test Hypertension Implantable intrathecal infusion pump present Mixed connective tissue disease Osteoarthritis History of DVT (deep vein thrombosis) History of pulmonary embolus (PE) Atrophic vaginitis Bone spur Osteoarthritis calcium calcifications Mixed connective tissue disease History of neuropathy History of spinal stenosis History of diabetes mellitus Acromioclavicular arthrosis Strain of shoulder, left Neck pain Limb weakness Difficulty balancing Fatigue Shoulder pain Gastroesophageal reflux disease DJD (degenerative joint disease) of lumbar spine Home Medications ???Medication ???Instructions ???Recorded ???Last Taken ???Type omeprazole 40 mg capsule,delayed 40 mg PO DAILY GERD 08/30/1302/19 History release trazodone 100 mg tablet 100 mg PO QHS mood 08/30/13 History levothyroxine 50 mcg tablet 50 mcg PO DAILY thyroid 10/21/17 0 09/15/22 History simvastatin 20 mg tablet 20 mg PO DAILY cholesterol 8 02/20/24 History atenolol 25 mg tablet 25 mg PO DAILY heart 05/18/1901/28 History methotrexate sodium 2.5 mg tablet 20 mg PO FR fibromyalgia 08/19/20 09/10/22 History leucovorin calcium 10 mg tablet 5 mg PO FR supplement 12/08/20 History cholecalciferol (vitamin D3) 25 25 mcg PO DAILY supplement 3 09/15/22 History mcg (1,000 unit) capsule lisinopril 20 mg tablet 20 mg PO DAILY blood pressure #30 09/17/22 Unknown Rx tabs hydroxyzine pamoate 50 mg capsule 50 mg PO QHS mood #30 caps Unknown Rx clonidine HCl 0.1 mg tablet 0.1 mg PO Q8H PRN PRN 03/03/24 13:30 Rx Anxiety/tremors #1 TAB folic acid 1 mg tablet 1 mg PO BREAKFAST #30 tabs 4 Unknown Rx insulin lispro 100 unit/mL See Rx Instructions .Route 4 Unknown Rx subcutaneous pen (Humalog KwikPen .COMPLEX diabetes #15 mL (U-100) Insulin) lorazepam 1 mg tablet 1 mg PO TID mood 05/07/24 Unknown History oxycodone-acetaminophen 5 mg-325 1 tab PO BID 07/27/24 Unknown Hist ory mg tablet tizanidine 4 mg tablet 4 mg PO TID 07/27/24 Unknown Histo ry lancets-blood glucose test #1 ea 07/28/24 Unknown Rx strips-pen needles with gauze kit insulin (more content not included)... Normal [facility] Lumbar Spine 2 or 3 Viewson 11-20-2024 Lumbar Spine 2 or 3 Views [facility] Services [address] [place], [place] [address] Lumbar Spine 2 or 3 Views MR#: [id number] Acct: [id number] Name: FLEX WOOTEN Rep #: [id number] : 1960 F 64 From: Deuce Thompson MD PCP: Dr. Rica Padgett, Status: PRE ER Study: Lumbar Spine 2 or 3 Views Date of Exam: Exam# [id number] Ordering Dr: Tre Flores DO EXAM: Lumbar spine 2 or three views x-ray CLINICAL HISTORY: Injury, pain COMPARISON: 05/14/[address] 07/28/2024 TECHNIQUE: Three views lumbosacral spine, AP, lateral and coned-down view FINDINGS: 5 [id number] lumbar vertebral type bodies again identified. No fracture or malalignment identified. There is again mild leftward curvature of the spine. Hardware L3 through L5 and at the upper right SI joint again noted and appears intact. Lower lumbar laminectomies again seen. Appearance of osseous fusion across the L4-5 disc again noted. Spondylosis/discogenic change again seen L2-3. Intraspinal catheter again noted. RAD/Lumbar Spine 2 or 3 Views IMPRESSION: No fracture or malalignment identified. Hardware, intraspinal catheter and spondylosis/discogenic change as above. Reading Location: [facility] CC: Dr. Tre Flores DO; Dr. Rica Padgett DO Avionics Safety Inspector: Signed Normal [facility] Spine Cervical without Contr ason 11-20-2024 Spine Cervical without Contras [facility] Services [address] [place], [place] [address] Spine Cervical without Contras MR#: [id number] Acct: [id number] Name: FLEX WOOTEN Rep #: [id number] : 1960 F 64 From: Deuce Thompson MD PCP: Dr. Rica Padgett DO Status: PRE ER Study: Spine Cervical without Contras Date of Exam: 0 11/20/24 Exam# [id number] Ordering Dr: Tre Flores DO EXAM: Cervical spine CT without contrast CLINICAL HISTORY: Injury, pain COMPARISON: Radiographs 09/17/2019 TECHNIQUE: Noncontrast CT of the cervical spine with coronal and sagittal reformatted images FINDINGS: No fracture or malalignment. The disc spaces appear within limits. No prevertebral soft tissue swelling. Asymmetric left-sided multilevel facet degenerative changes. Visualized apices appear clear. Mild appearing right carotid calcification noted. CT/Spine Cervical without Contras IMPRESSION: No fracture or malalignment. Reading Location: [facility] CC: Dr. Tre Flores DO; Dr. Rica Padgett DO Avionics Safety Inspector: Signed Normal [facility] Thoracic Spine 3 Viewson Thoracic Spine 3 Views [facility] Services [address] [place] [address] Thoracic Spine 3 Views MR#: [id number] Acct: [id number] Name: FLEX WOOTEN Rep #: [id number] : 1960 F 64 From: Deuce Thompson MD PCP: Dr. Rica Padgett DO Status: PRE ER Study: Thoracic Spine 3 Views Date of Exam: 11/20/24 Exam# [id number] Ordering Dr: Tre Flores DO EXAM: Thoracic spine x-ray CLINICAL HISTORY: Injury, pain COMPARISON: 09/17/2019 TECHNIQUE: AP and lateral views of the thoracic spine FINDINGS: No fracture or malalignment identified. The disc spaces appear within limits. Spondylosis and DISH. RAD/Thoracic Spine 3 Views IMPRESSION: No fracture or malalignment identified. Reading Location: [facility] CC: Dr. Tre Flores DO; Dr. Rica Padgett DO Avionics Safety Inspector: Signed Normal [facility] Endocrinology Visit Reporton 11-19-2024 Endocrinology Visit Report [facility] [address] [place] [address] OFFICE VISIT Date of Service: 11/19/24 MR#: [id number] Acct: [id number] Name: FLEX WOOTEN Rep #: [id number] : 1960 Provider: SAGE hernandez Age/Sex: 64/F Location: [facility] Status: Signed Intake Vital Signs 10/08/24 11:17 10/15/24 13:08 11/19/24 11:12 Height 5 ft 4 in 5 ft 4 in 5 ft 4 in Weight: 267 lb BMI 45.8 BP 164/81 H Blood Pressure Location Lt brachial Position Sitting Pulse 92 Pulse Source Monitor Pulse Oximetry (%) 93 Oxygen Delivery Method room air Intake Visit Reasons: 6 Wk FU Chief Complaint: f/u diabetes Allergies niacin Allergy (Verified 11/19/24 11:15) Itching venlafaxine Adverse Reaction (Severe, Verified 11/19/24 11:15) Vomiting metformin Adverse Reaction (Intermediate, Verified 11/19/24 11:15) Diarrhea cephalexin (From Keflex) Adverse Reaction (Verified 11/19/24 11:15) Other Medications ???Medication ???Instructions ???Recorded ???Confirmed ???Type omeprazole 40 mg capsule,delayed 40 mg PO DAILY GERD 08/30/1311/19 History release trazodone 100 mg tablet 100 mg PO QHS mood 08/30/13 History levothyroxine 50 mcg tablet 50 mcg PO DAILY thyroid 10/21/17 0 11/19/24 History simvastatin 20 mg tablet 20 mg PO DAILY cholesterol 8 11/19/24 History atenolol 25 mg tablet 25 mg PO DAILY heart 05/18/1910/28 History methotrexate sodium 2.5 mg tablet 20 mg PO FR fibromyalgia 08/19/20 11/19/24 History leucovorin calcium 10 mg tablet 5 mg PO FR supplement 12/08/20 History cholecalciferol (vitamin D3) 25 25 mcg PO DAILY supplement 3 11/19/24 History mcg (1,000 unit) capsule lisinopril 20 mg tablet 20 mg PO DAILY blood pressure #30 09/17/22 11/19/24 Rx tabs hydroxyzine pamoate 50 mg capsule 50 mg PO QHS mood #30 caps 11/19/24 Rx clonidine HCl 0.1 mg tablet 0.1 mg PO Q8H PRN PRN 03/03/24 Rx Anxiety/tremors #1 TAB folic acid 1 mg tablet 1 mg PO BREAKFAST #30 tabs 4 11/19/24 Rx insulin lispro 100 unit/mL See Rx Instructions .Route 4 11/19/24 Rx subcutaneous pen (Humalog KwikPen .COMPLEX diabetes #15 mL (U-100) Insulin) lorazepam 1 mg tablet 1 mg PO TID mood 05/07/24 11/19/24 History oxycodone-acetaminophen 5 mg-325 1 tab PO BID 07/27/24 11/19/24 His tory mg tablet tizanidine 4 mg tablet 4 mg PO TID 07/27/24 11/19/24 Hist ory lancets-blood glucose test #1 ea 07/28/24 11/19/24 Rx strips-pen needles with gauze kit insulin lispro 100 unit/mL 40 unit (0.4 mL) subcut TIDWMEAL 1 10/21/23 11/19/24 Rx subcutaneous pen (Humalog KwikPen #108 mL (U-100) Insulin) escitalopram oxalate 20 mg tablet 20 mg PO DAILY mood #90 tabs 01/02/2011/19/24 Rx gabapentin 100 mg capsule 100 mg PO TID nerve pain 90 days 0 09/03/24 11/19/24 Rx #270 caps blood-glucose sensor (FreeStyle #6 ea 09/21/24 11/19/24 Rx Prema 3 Plus Sensor device) sumatriptan succinate 25 mg tablet See Rx Instructions PO .COMPLEX 10/12/24 11/19/24 Rx (Imitrex) #10 tabs semaglutide 1 mg/dose (4 mg/3 mL) 1 mg (0.75 mL) subcut QWEEK #3 mL 10/30/24 11/19/24 Rx subcutaneous pen injector (Ozempic) insulin glargine-yfgn 100 unit/mL 52 unit (0.52 mL) subcut QHS 10/2711/19/24 Rx (3 mL) subcutaneous pen diabetes #5 pens Have you fallen in the past year?: No PFSH Medical History Diabetes mellitus with hyperglycemia HTN (hypertension) Uncontrolled diabetes mellitus Diabetic polyneuropathy Essential (primary) hypertension Hyperlipidemia Insomnia 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 Hallux rigidus, left foot MRSA infection Uses wheelchair Walker as ambulation aid High cholesterol CPAP (continuous positive airway pressure) dependence Sleep apnea Hypothyroidism Anxiety disorder, unspecified Chronic pain Depressive 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 Obesity hypoventilation syndrome Obesity Normal stress echocardiogram Wears glasses PTSD (post-traumatic stress disorder) Depression Anxiety Thyroid disease Insulin dependent diabetes mellitus Ambulates with cane Fibromyalgia Arthritis DVT (deep venous thrombosis) High cholesterol Migraine headache Back pain Gait instability Syncope Dietary restriction History of diverticulitis Gastric reflux Former smoker ASV (adaptive servo-ventilation) use counseling On home oxygen therapy Shortness of breath on exertion Leg cramps History of pain when walking History of edema History of stress test Hypertension Implantable intrathecal infusion pump present Mixe (more content not included)... [facility] Emergency Department Summary on 10-15-2024 Emergency Department Summary [facility] Medical Records Department [address] [place] [address] Emergency Department Summary 10/15/24 MR#: [id number] Acct: [id number] Name: FLEX WOOTEN Rep #: [id number] : 1960 64 From: Della COX PCP: Dr. Rica Padgett, DO Status:DEP ER Location: ED HPI History of Present Illness Chief Complaint: Headache Narrative Narrative: Patient presenting today due to a migraine that started on 10/12/2024. She reports that the pain was gradual in onset and has been gradually worsening over the past few days. She does have a history of migraines, she was seen here 3 days ago for her headache and was given a migraine cocktail that provided minimal relief, she was then given morphine that seem to help but did not completely resolve her headache. She was ultimately discharged home with a prescription for Imitrex. She reports that the Imitrex has not been helping her. She has had headaches like this in the past but the intensity and duration are worse this time. She reports photophobia and occasional nausea. She denies fevers, chills, neck pain, paresthesias, and head injury. 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 Hallux rigidus, left foot MRSA infection Uses wheelchair Walker as ambulation aid High cholesterol CPAP (continuous positive airway pressure) dependence Sleep apnea Hypothyroidism Anxiety disorder, unspecified Chronic pain Depressive 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 Obesity hypoventilation syndrome Obesity Normal stress echocardiogram Wears glasses PTSD (post-traumatic stress disorder) Depression Anxiety Thyroid disease Insulin dependent diabetes mellitus Ambulates with cane Fibromyalgia Arthritis DVT (deep venous thrombosis) High cholesterol Migraine headache Back pain Gait instability Syncope Dietary restriction History of diverticulitis Gastric reflux Former smoker ASV (adaptive servo-ventilation) use counseling On home oxygen therapy Shortness of breath on exertion Leg cramps History of pain when walking History of edema History of stress test Hypertension Implantable intrathecal infusion pump present Mixed connective tissue disease Osteoarthritis History of DVT (deep vein thrombosis) History of pulmonary embolus (PE) Atrophic vaginitis Bone spur Osteoarthritis calcium calcifications Mixed connective tissue disease History of neuropathy History of spinal stenosis History of diabetes mellitus Acromioclavicular arthrosis Strain of shoulder, left Neck pain Limb weakness Difficulty balancing Fatigue Shoulder pain Gastroesophageal reflux disease DJD (degenerative joint disease) of lumbar spine Home Medications ???Medication ???Instructions ???Recorded ???Last Taken ???Type omeprazole 40 mg capsule,delayed 40 mg PO DAILY GERD 08/30/1302/19 History release trazodone 100 mg tablet 100 mg PO QHS mood 08/30/13 History levothyroxine 50 mcg tablet 50 mcg PO DAILY thyroid 10/21/17 0 09/15/22 History simvastatin 20 mg tablet 20 mg PO DAILY cholesterol 8 02/20/24 History atenolol 25 mg tablet 25 mg PO DAILY heart 05/18/1901/28 History methotrexate sodium 2.5 mg tablet 20 mg PO FR fibromyalgia 08/19/20 09/10/22 History leucovorin calcium 10 mg tablet 5 mg PO FR supplement 12/08/20 History cholecalciferol (vitamin D3) 25 25 mcg PO DAILY supplement 3 09/15/22 History mcg (1,000 unit) capsule lisinopril 20 mg tablet 20 mg PO DAILY blood pressure #30 09/17/22 Unknown Rx tabs hydroxyzine pamoate 50 mg capsule 50 mg PO QHS mood #30 caps Unknown Rx clonidine HCl 0.1 mg tablet 0.1 mg PO Q8H PRN PRN 03/03/24 13:30 Rx Anxiety/tremors #1 TAB folic acid 1 mg tablet 1 mg PO BREAKFAST #30 tabs 4 Unknown Rx insulin lispro 100 unit/mL See Rx Instructions .Route 4 Unknown Rx subcutaneous pen (Humalog KwikPen .COMPLEX diabetes #15 mL (U-100) Insulin) lorazepam 1 mg tablet 1 mg PO TID mood 05/07/24 Unknown History oxycodone-acetaminophen 5 mg-325 1 tab PO BID 07/27/24 Unknown Hist ory mg tablet tizanidine 4 mg tablet 4 mg PO TID 07/27/24 Unknown Histo ry insulin glargine-yfgn 100 unit/mL 52 unit subcut QHS diabetes 07/28 Unknown History (3 mL) subcutaneous pen lancets-blood glucose test #1 ea 07/28/24 Unknown Rx strips-pen needles with gauze kit insulin lispro 100 unit/mL 40 unit (0.4 mL) subcut TIDWMEAL 1 10/21/23 Unknown (more content not included)... [facility] Emergency Department Summary on 10-12-2024 Emergency Department Summary [facility] Medical Records Department [address] [place] [address] Emergency Department Summary 10/12/24 MR#: [id number] Acct: [id number] Name: FLEX WOOTEN Rep #: [id number] : 1960 64 From: Uday Stokes MD PCP: Dr. Rica Padgett DO Status:REG ER Location: ED HPI History of Present Illness Chief Complaint: Headache Informant: patient Onset/Context/Timing Onset: Days Context: Gradual Timing: Continuous Quality -Headache: Positive for Similar Prior Headaches and Sharp Location: By a temporal and forehead headache. Similar to prior migraines. Current Severity: Moderate Maximum Severity: Moderate Associated Symptoms/Injury Associated Symptoms: Positive for Nausea, Vomiting and Photophobia Injury - MCKEON: Negative for Direct Trauma, Fall or Assault Narrative Narrative: 64-year-old female history of diabetes, hypertension chronic back pain. History of prior migraines. States she has had a headache since Tuesday evening. Gradual onset bitemporal. Associated nausea vomiting. No fever. No head or neck trauma. She is on no blood thinners. Denies any weakness or numbness to her upper or lower extremities. Light makes headache worse. 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 Hallux rigidus, left foot MRSA infection Uses wheelchair Walker as ambulation aid High cholesterol CPAP (continuous positive airway pressure) dependence Sleep apnea Hypothyroidism Anxiety disorder, unspecified Chronic pain Depressive 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 Obesity hypoventilation syndrome Obesity Normal stress echocardiogram Wears glasses PTSD (post-traumatic stress disorder) Depression Anxiety Thyroid disease Insulin dependent diabetes mellitus Ambulates with cane Fibromyalgia Arthritis DVT (deep venous thrombosis) High cholesterol Migraine headache Back pain Gait instability Syncope Dietary restriction History of diverticulitis Gastric reflux Former smoker ASV (adaptive servo-ventilation) use counseling On home oxygen therapy Shortness of breath on exertion Leg cramps History of pain when walking History of edema History of stress test Hypertension Implantable intrathecal infusion pump present Mixed connective tissue disease Osteoarthritis History of DVT (deep vein thrombosis) History of pulmonary embolus (PE) Atrophic vaginitis Bone spur Osteoarthritis calcium calcifications Mixed connective tissue disease History of neuropathy History of spinal stenosis History of diabetes mellitus Acromioclavicular arthrosis Strain of shoulder, left Neck pain Limb weakness Difficulty balancing Fatigue Shoulder pain Gastroesophageal reflux disease DJD (degenerative joint disease) of lumbar spine Home Medications ???Medication ???Instructions ???Recorded ???Last Taken ???Type omeprazole 40 mg capsule,delayed 40 mg PO DAILY GERD 08/30/1302/19 History release trazodone 100 mg tablet 100 mg PO QHS mood 08/30/13 History levothyroxine 50 mcg tablet 50 mcg PO DAILY thyroid 10/21/17 0 09/15/22 History simvastatin 20 mg tablet 20 mg PO DAILY cholesterol 8 02/20/24 History atenolol 25 mg tablet 25 mg PO DAILY heart 05/18/1901/28 History methotrexate sodium 2.5 mg tablet 20 mg PO FR fibromyalgia 08/19/20 09/10/22 History leucovorin calcium 10 mg tablet 5 mg PO FR supplement 12/08/20 History cholecalciferol (vitamin D3) 25 25 mcg PO DAILY supplement 3 09/15/22 History mcg (1,000 unit) capsule lisinopril 20 mg tablet 20 mg PO DAILY blood pressure #30 09/17/22 Unknown Rx tabs hydroxyzine pamoate 50 mg capsule 50 mg PO QHS mood #30 caps Unknown Rx clonidine HCl 0.1 mg tablet 0.1 mg PO Q8H PRN PRN 03/03/24 13:30 Rx Anxiety/tremors #1 TAB folic acid 1 mg tablet 1 mg PO BREAKFAST #30 tabs 4 Unknown Rx insulin lispro 100 unit/mL See Rx Instructions .Route 4 Unknown Rx subcutaneous pen (Humalog KwikPen .COMPLEX diabetes #15 mL (U-100) Insulin) lorazepam 1 mg tablet 1 mg PO TID mood 05/07/24 Unknown History oxycodone-acetaminophen 5 mg-325 1 tab PO BID 07/27/24 Unknown Hist ory mg tablet tizanidine 4 mg tablet 4 mg PO TID 07/27/24 Unknown Histo ry insulin glargine-yfgn 100 unit/mL 52 unit subcut QHS diabetes 07/28 Unknown History (3 mL) subcutaneous pen lancets-blood glucose test #1 ea 07/28/24 Unknown Rx (more content not included)... [facility] Endocrinology Visit Reporton 10-08-2024 Endocrinology Visit Report [facility] [address] [place] [id number] OFFICE VISIT Date of Service: 10/08/24 MR#: [id number] Acct: [id number] Name: FLEX WOOTEN Rep #: [id number] : 1960 Provider: SAGE hernandez Age/Sex: 64/F Location: [facility] Status: Signed Intake Vital Signs 06/06/24 11:10 09/03/24 11:09 10/08/24 11:17 Height 5 ft 4 in 5 ft 4 in 5 ft 4 in Weight: 255 lb 259 lb 8 oz BMI 43.7 44.5 BP 172/73 H 146/67 H Blood Pressure Location Lt brachial Rt brachial Position Sitting Sitting Respiration 16 Pulse 73 86 Pulse Source Monitor Monitor Pulse Oximetry (%) 91 Intake Visit Reasons: 4 M FU Chief Complaint: f/u diabetes Is patient in pain?: Yes Allergies niacin Allergy (Verified 10/08/24 11:32) Itching venlafaxine Adverse Reaction (Severe, Verified 10/08/24 11:32) Vomiting metformin Adverse Reaction (Intermediate, Verified 10/08/24 11:32) Diarrhea cephalexin (From Keflex) Adverse Reaction (Verified 10/08/24 11:32) Other Medications ???Medication ???Instructions ???Recorded ???Confirmed ???Type omeprazole 40 mg capsule,delayed 40 mg PO DAILY GERD 08/30/1310/08 History release trazodone 100 mg tablet 100 mg PO QHS mood 08/30/13 History levothyroxine 50 mcg tablet 50 mcg PO DAILY thyroid 10/21/17 0 10/08/24 History simvastatin 20 mg tablet 20 mg PO DAILY cholesterol 8 10/08/24 History atenolol 25 mg tablet 25 mg PO DAILY heart 05/18/1909/29 History methotrexate sodium 2.5 mg tablet 20 mg PO FR fibromyalgia 08/19/20 10/08/24 History leucovorin calcium 10 mg tablet 5 mg PO FR supplement 12/08/2006/22 History cholecalciferol (vitamin D3) 25 25 mcg PO DAILY supplement 3 10/08/24 History mcg (1,000 unit) capsule lisinopril 20 mg tablet 20 mg PO DAILY blood pressure #30 09/17/22 10/08/24 Rx tabs hydroxyzine pamoate 50 mg capsule 50 mg PO QHS mood #30 caps 10/08/24 Rx clonidine HCl 0.1 mg tablet 0.1 mg PO Q8H PRN PRN 03/03/2406/22 Rx Anxiety/tremors #1 TAB folic acid 1 mg tablet 1 mg PO BREAKFAST #30 tabs 4 10/08/24 Rx insulin lispro 100 unit/mL See Rx Instructions .Route 4 10/08/24 Rx subcutaneous pen (Humalog KwjackiPen .COMPLEX diabetes #15 mL (U-100) Insulin) lorazepam 1 mg tablet 1 mg PO TID mood 05/07/24 10/08/24 History oxycodone-acetaminophen 5 mg-325 1 tab PO BID 07/27/24 10/08/24 His tory mg tablet tizanidine 4 mg tablet 4 mg PO TID 07/27/24 10/08/24 Hist ory insulin glargine-yfgn 100 unit/mL 52 unit subcut QHS diabetes 07/2810/08/24 History (3 mL) subcutaneous pen lancets-blood glucose test #1 ea 07/28/24 10/08/24 Rx strips-pen needles with gauze kit insulin lispro 100 unit/mL 40 unit (0.4 mL) subcut TIDWMEAL 1 10/21/23 10/08/24 Rx subcutaneous pen (Humalog KwikPen #108 mL (U-100) Insulin) escitalopram oxalate 20 mg tablet 20 mg PO DAILY mood #90 tabs 02/2010/08/24 Rx gabapentin 100 mg capsule 100 mg PO TID nerve pain 90 days 0 09/03/24 10/08/24 Rx #270 caps blood-glucose sensor (FreeStyle #6 ea 09/21/24 10/08/24 Rx Prema 3 Plus Sensor device) Have you fallen in the past year?: No PFSH Medical History Diabetes mellitus with hyperglycemia HTN (hypertension) Uncontrolled diabetes mellitus Diabetic polyneuropathy Essential (primary) hypertension Hyperlipidemia Insomnia 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 Hallux rigidus, left foot MRSA infection Uses wheelchair Walker as ambulation aid High cholesterol CPAP (continuous positive airway pressure) dependence Sleep apnea Hypothyroidism Anxiety disorder, unspecified Chronic pain Depressive 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 Obesity hypoventilation syndrome Obesity Normal stress echocardiogram Wears glasses PTSD (post-traumatic stress disorder) Depression Anxiety Thyroid disease Insulin dependent diabetes mellitus Ambulates with cane Fibromyalgia Arthritis DVT (deep venous thrombosis) High cholesterol Migraine headache Back pain Gait instability Syncope Dietary restriction History of diverticulitis Gastric reflux Former smoker ASV (adaptive servo-ventilation) use counseling On home oxygen therapy Shortness of breath on exertion Leg cramps History of pain when walking History of edema History of stress test Hypertension Implantable intrathecal infusion pump present Mixed connective tissue disease Osteoarthritis History of DVT (deep vein thrombosis) History of pulmonary embolus (PE) Atrophic vaginitis Bone spur Osteoarthritis calcium calcifications M (more content not included)... [facility] MR/BMS.BPon 09-03-2024 MR/BMS.BP [facility] [address], [address] [place] [address] OFFICE VISIT Date of Service: 09/03/24 MR#: [id number] Acct: [id number] Name: FLEX WOOTEN Rep #: [id number] : 1960 Provider: Dr. Pj Anglin se, DO Age/Sex: 64/F Location[place] [facility] [place] Status: Signed Intake Vital Signs 05/07/24 11:31 07/27/24 20:03 09/03/24 11:09 Height 5 ft 4 in 5 ft 4 in 5 ft 4 in Weight: 255 lb BMI 43.7 BP 172/73 H Blood Pressure Location Lt brachial Position Sitting Respiration 16 Pulse 73 Pulse Source Monitor BP Intake Visit Reasons: 4 M FU Accompanied by: Allergies niacin Allergy (Verified 09/03/24 11:12) Itching venlafaxine Adverse Reaction (Severe, Verified 09/03/24 11:12) Vomiting metformin Adverse Reaction (Intermediate, Verified 09/03/24 11:12) Diarrhea cephalexin (From Keflex) Adverse Reaction (Verified 09/03/24 11:12) Other Medications ???Medication ???Instructions ???Recorded ???Confirmed ???Type omeprazole 40 mg capsule,delayed 40 mg PO DAILY GERD 08/30/13 09/03/24 History release trazodone 100 mg tablet 100 mg PO QHS mood 08/30/13 09/03/24 History levothyroxine 50 mcg tablet 50 mcg PO DAILY thyroid 10/21/17 09/03/24 History simvastatin 20 mg tablet 20 mg PO DAILY cholesterol 10/21/17 09/03/24 History atenolol 25 mg tablet 25 mg PO DAILY heart 05/18/19 09/03/24 History methotrexate sodium 2.5 mg tablet 20 mg PO FR fibromyalgia 08/19/20 09/03/24 History leucovorin calcium 10 mg tablet 5 mg PO FR supplement 12/08/20 09/03/24 History cholecalciferol (vitamin D3) 25 25 mcg PO DAILY supplement 09/13/22 09/03/24 History mcg (1,000 unit) capsule lisinopril 20 mg tablet 20 mg PO DAILY blood pressure #30 09/17/22 09/03/24 Rx tabs hydroxyzine pamoate 50 mg capsule 50 mg PO QHS mood #30 caps 09/07/23 09/03/24 Rx clonidine HCl 0.1 mg tablet 0.1 mg PO Q8H PRN PRN 03/03/24 09/03/24 Rx Anxiety/tremors #1 TAB folic acid 1 mg tablet 1 mg PO BREAKFAST #30 tabs 03/03/24 09/03/24 Rx insulin lispro 100 unit/mL See Rx Instructions .Route 03/03/24 09/03/24 Rx subcutaneous pen (Humalog KwikPen .COMPLEX diabetes #15 mL (U-100) Insulin) blood-glucose sensor (FreeStyle #6 ea 04/02/24 09/03/24 Rx Prema 3 Sensor device) lorazepam 1 mg tablet 1 mg PO TID mood 05/07/24 09/03/24 History oxycodone-acetaminophen 5 mg-325 1 tab PO BID 07/27/24 09/03/24 History mg tablet tizanidine 4 mg tablet 4 mg PO TID 07/27/24 09/03/24 History insulin glargine-yfgn 100 unit/mL 52 unit subcut QHS diabetes 07/28/24 09/03/24 History (3 mL) subcutaneous pen lancets-blood glucose test #1 ea 07/28/24 09/03/24 Rx strips-pen needles with gauze kit insulin lispro 100 unit/mL 40 unit (0.4 mL) subcut TIDWMEAL 08/20/24 09/03/24 Rx subcutaneous pen (Humalog KwikPen #108 mL (U-100) Insulin) escitalopram oxalate 20 mg tablet 20 mg PO DAILY mood #90 tabs 09/03/24 09/03/24 Rx gabapentin 100 mg capsule 100 mg PO TID nerve pain 90 days 09/03/24 09/03/24 Rx #270 caps Have you fallen in the past year?: No PFSH Medical History (Updated 08/05/24 @ 00:01 by Background Zaida) Diabetes mellitus with hyperglycemia HTN (hypertension) Uncontrolled diabetes mellitus Diabetic polyneuropathy Essential (primary) hypertension Hyperlipidemia Insomnia 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 Hallux rigidus, left foot MRSA infection Uses wheelchair Walker as ambulation aid High cholesterol CPAP (continuous positive airway pressure) dependence Sleep apnea Hypothyroidism Anxiety disorder, unspecified Chronic pain Depressive 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 Obesity hypoventilation syndrome Obesity Normal stress echocardiogram Wears glasses PTSD (post-traumatic stress disorder) Depression Anxiety Thyroid disease Insulin dependent diabetes mellitus Ambulates with cane Fibromyalgia Arthritis DVT (deep venous thrombosis) High cholesterol Migraine headache Back pain Gait instability Syncope Dietary restriction History of diverticulitis Gastric reflux Former smoker ASV (adaptive servo-ventilation) use counseling On home oxygen therapy Shortness of breath on exertion Leg cramps History of pain when walking History of edema History of stress test Hypertension Implantable intrathecal infusion pump present Mixed connective tissue disease Osteoarthritis History of DVT (deep vein thrombosis) History of pulmonary embolus (PE) Atrophic vaginitis Bone spur Osteoarthritis calcium calcifications Mixed connective tissue disease History of neuropathy History of spinal stenosis History of diabetes mellitus Acromioclavicular arthrosis Strain of shoulder, left Neck pain Limb weakness Difficulty balancing Fa (more content not included)... [facility] Bedside Glucoseon 07-28-2024 FINGERSTICK GLU 200 mg/dL High [id number] [facility] Comment on above: Result Comment: MARCELLA GEMENT OF PATIENT CARE PER NURSING PROTOCOL Performed By: #### L 506.1000, L503.0105, L503.6150, L100.0100, L506.0400, L500.4050, L503.6550, L501.9520 #### [facility] [address] [place], [address] FINGERSTICK GLU 202 mg/dL High [id number] [facility] Comment on above: Result Comment: MARCELLA GEMENT OF PATIENT CARE PER NURSING PROTOCOL Performed By: #### L 501.080 #### [facility] [address] [place], [address] FINGERSTICK GLU 233 mg/dL High [facility] Comment on above: Result Comment: MARCELLA GEMENT OF PATIENT CARE PER NURSING PROTOCOL Performed By: #### L 500.2500, L506.1001 #### [facility] [address] [place], [address] Spine Lumbar without Contras ton 07-28-2024 Spine Lumbar without Contrast [facility] [address] [place] [address] Spine Lumbar without Contrast MR#: [id number] Acct: [id number] Name: FLEX WOOTEN Rep #: [id number] : 1960 F 64 From: Dru Stanford MD PCP: Dr. Rica Padgett DO Status: ADM LATRICAI Study: Spine Lumbar without Contrast Date of Exam: Exam# [id number] Ordering Dr: [place] [id number] EXAM: CT LUMBAR SPINE WITHOUT INTRAVENOUS CONTRAST CLINICAL INDICATION: radicular back pain TECHNIQUE: Helically acquired images were obtained of the lumbar spine without intravenous contrast. 2D reformats were reviewed. This CT exam was performed using one or more of the following dose reduction techniques: automated exposure control, adjustment of the mA and/or kV according to patient size, and/or use of iterative reconstruction technique. COMPARISON: No relevant prior studies available. FINDINGS: VERTEBRAE: Moderate to severe spinal stenosis at the L2-3 level related to the bony hypertrophy of the vertebral body and facet joints. Levoscoliosis centered at the L2-3 level with Mitchell angle of 25 degrees. Mild anterior listhesis of L2 on L3 related to underlying degenerative change. No acute fracture. Interpedicular screw fixation at L4 and L5 bilaterally on the right at L3 associated with posterior laminectomy. DISCS/SPINAL CANAL/NEURAL FORAMINA: Multilevel disc space narrowing and prominent multilevel vertebral body hypertrophy. Prominent multilevel facet arthropathy. Multilevel disc space narrowing most pronounced at the L2-3 level. VASCULATURE: Visualized abdominal aorta is not dilated. LYMPH NODES: Normal. No retroperitoneal adenopathy. TUBES, LINES AND DEVICES: Intraspinal stimulator wire inserted at the L1-2 level extending into the thoracic spinal canal. CT/Spine Lumbar without Contrast IMPRESSION: Extensive degenerative and postoperative changes. Significant spinal stenosis at the L2-3 level as described. Electronically Signed: Dru Stanford MD at 11:46 EST Reading Location ID and State: [facility] / [place] Tel , Service support , CC: Dr. Tre Anderson DO; Dr. Rica Padgett DO Avionics Safety Inspector: Signed [facility] 12 Lead EKGon 07-27-2024 12 Lead EKG [facility] Cardiovascular Services [address] [place] [address] 12 Lead EKG 07/27/24 1649 MR#: [id number] Acct: [id number] Name: FLEX WOOTEN Rep #: [id number] : 1960 64 From: Wilbert Ba MD Attending Dr: Dr. Tre Anderson DO Status: DIS LATRICIA Ordering Dr: Rica Pardo Date: 07/27/24 Location: MT3 Sex: F C Admitted: 07/27/24 Test Reason : DYSP Blood Pressure : */* mmHG Vent. Rate : 75 BPM Atrial Rate : 75 BPM P-R Int : 154 ms QRS Dur : 86 ms QT Int : 404 ms P-R-T Axes : 20 -6 21 degrees QTcB Int : 451 ms Normal sinus rhythm Minimal voltage criteria for LVH, may be normal variant ( R in aVL ) Inferior infarct , age undetermined Cannot rule out Anterior infarct , age undetermined Abnormal ECG Confirmed by Wilbert Ba ([id number]), state editor GLADIS JENKINS ([id number]) on 07/30/2024 11:30:25 AM Referred By: Confirmed By: Wilbert Ba 07/30/24 1130 Date Wilbert Ba MD CC: Dr. Tre Anderson DO; Dr. Rica Padgett DO; KENNY Hinkle Signed [facility] Basic Metabolic Profile (BMP )on 07-27-2024 BUN/CRE 14.0 RATIO Normal 06-17 [facility] Comment on above: Performed By: #### L 500.2500, L506.1001 #### [facility] [address] [place], [address] CA,Total 8.9 mg/dL Normal 8.5-10.1 [facility] Comment on above: Performed By: #### L 500.2500, L506.1001 #### [facility] [address] [place], [address] Chloride [Moles/Vol] 99 mmol/L Normal 98-107 [facility] Comment on above: Performed By: #### L 500.2500, L506.1001 #### [facility] [address] [place], [address] CO2 [Moles/Vol] 30.0 mmol/L Normal 21.0-32.0 [facility] Comment on above: Performed By: #### L 500.2500, L506.1001 #### [facility] [address] [place], [address] Creatinine [Mass/Vol] 1.00 mg/dL Normal 0.55-1.02 [facility] Comment on above: Result Comment: The validity of the calculated GFR GFRAA in patients over 70 years has not been determined. Clinical correlation is essential. Performed By: #### L 500.2500, L506.1001 #### [facility] [address] [place], [address] ECRCL 69.70 ml/min [facility] Comment on above: Performed By: #### L 500.2500, L506.1001 #### [facility] [address] [place], [address] EST GFR - AA 71 mL/min Normal >60 [facility] Comment on above: Result Comment: Afri can Macanese GFR Calc Performed By: #### L 500.2500, L506.1001 #### [facility] [address] [place], [address] GAP 7 Normal 5-15 [facility] Comment on above: Performed By: #### L 500.2500, L506.1001 #### [facility] [address] [place], [address] GFR/1.73 sq M.predicted among non-blacks MDRD (S/P/Bld) [Vol rate/Area] 59 mL/min/{1.73_m2} Low >60 [facility] Comment on above: Result Comment: Non- GFR Calc Performed By: #### L 500.2500, L506.1001 #### [facility] [address] [place], [address] Glucose [Mass/Vol] 421 mg/dL High 74-106 [facility] Comment on above: Result Comment: Gluc ose result greater than or equal to 200 mg/dL suggests DIABETES MELLITUS per A.D.A. criteria. Performed By: #### L 500.2500, L506.1001 #### [facility] [address] [place], [address] Potassium [Moles/Vol] 4.6 mmol/L Normal 3.5-5.1 [facility] Comment on above: Result Comment: Slig ht Hemolysis, Result may be falsely increased. Performed By: #### L 500.2500, L506.1001 #### [facility] [address] [place], [address] Sodium [Moles/Vol] 135 mmol/L Low 136-145 [facility] Comment on above: Performed By: #### L 500.2500, L506.1001 #### [facility] [address] [place], [address] Urea nitrogen [Mass/Vol] 14 mg/dL Normal 7-18 [facility] Comment on above: Performed By: #### L 500.2500, L506.1001 #### [facility] [address] [place], [address] Bedside Glucoseon 07-27-2024 FINGERSTICK GLU 290 mg/dL High 74-106 [facility] Comment on above: Result Comment: MARCELLA AGUILAR OF PATIENT CARE PER NURSING PROTOCOL Performed By: #### L 500.2500, L506.1001 #### [facility] [address] [place], [address] FINGERSTICK GLU 360 mg/dL High 74-106 [facility] Comment on above: Result Comment: MARCELLA AGUILAR OF PATIENT CARE PER NURSING PROTOCOL Performed By: #### L 500.2500, L506.1001 #### [facility] [address] [place], [address] CBC W/Diff, Automatedon 11-2 -2023 Absolute Lymph 2.09 X10 3/uL Normal 0.83-4.51 [facility] Comment on above: Performed By: #### L 500.2500, L506.1001 #### [facility] [address] [place], [address] Absolute Neut 4.9 X10 3/uL Normal 2.0-7.7 [facility] Comment on above: Performed By: #### L 500.2500, L506.1001 #### [facility] [address] [place], [address] Basophils/100 WBC (Bld) 0.4 % Normal 0-1 [facility] Comment on above: Performed By: #### L 500.2500, L506.1001 #### [facility] [address] [place], [address] Eosinophils/100 WBC (Bld) 1.8 % Normal 0-5 [facility] Comment on above: Performed By: #### L 500.2500, L506.1001 #### [facility] [address] [place], [address] Erythrocyte distribution width (RBC) [Ratio] 13.5 % Normal 11.6-14.6 [facility] Comment on above: Performed By: #### L 500.2500, L506.1001 #### [facility] [address] [place], [address] Hematocrit (Bld) [Volume fraction] 44.6 % Normal 37-47 [facility] Comment on above: Performed By: #### L 500.2500, L506.1001 #### [facility] [address] [place], [address] Hemoglobin (Bld) [Mass/Vol] 14.2 g/dL Normal 12.0-15.0 [facility] Comment on above: Performed By: #### L 500.2500, L506.1001 #### [facility] [address] [place], [address] IG% 0.500 Normal 0.0-0.9 [facility] Comment on above: Result Comment: IG% - Immature Granulocytes (promyelocytes, myelocytes and metamyelocytes) > 1% indicates that a LEFT SHIFT is Present. Performed By: #### L 500.2500, L506.1001 #### [facility] [address] [place], [address] Lymphocytes/100 WBC (Bld) 27.5 % Normal 19-41 [facility] Comment on above: Performed By: #### L 500.2500, L506.1001 #### [facility] [address] [place], [address] MCH (RBC) [Entitic mass] 28.9 pg Normal 27.0-32.0 [facility] Comment on above: Performed By: #### L 500.2500, L506.1001 #### [facility] [address] [place], [address] MCHC (RBC) [Mass/Vol] 31.8 g/dL Low 32-36 [facility] Comment on above: Performed By: #### L 500.2500, L506.1001 #### [facility] [address] [place], [address] MCV (RBC) [Entitic vol] 90.7 fL Normal 81-99 [facility] Comment on above: Performed By: #### L 500.2500, L506.1001 #### [facility] [address] [place], [address] Monocytes/100 WBC (Bld) 5.5 % Normal 0-10 [facility] Comment on above: Performed By: #### L 500.2500, L506.1001 #### [facility] [address] [place], [address] Neutrophils/100 WBC (Bld) 64.3 % Normal 47-70 [facility] Comment on above: Performed By: #### L 500.2500, L506.1001 #### [facility] [address] [place], [address] Nucleated RBC (Bld) [#/Vol] 0 10*3/uL Normal 0-5 [facility] Comment on above: Performed By: #### L 500.2500, L506.1001 #### [facility] [address] [place], [address] Platelet mean volume (Bld) [Entitic vol] 9.3 fL Normal 6.2-12.0 [facility] Comment on above: Performed By: #### L 500.2500, L506.1001 #### [facility] [address] [place], [address] Platelets (Bld) [#/Vol] 234 10*3/uL Normal 150-450 [facility] Comment on above: Performed By: #### L 500.2500, L506.1001 #### [facility] [address] [place], [address] RBC (Bld) [#/Vol] 4.92 10*6/uL Normal 4.2-5.4 [facility] Comment on above: Performed By: #### L 500.2500, L506.1001 #### [facility] [address] [place], [address] RDW SD 44.1 fl High 35.1-43.9 [facility] Comment on above: Performed By: #### L 500.2500, L506.1001 #### [facility] [address] [place], [address] WBC (Bld) [#/Vol] 7.6 10*3/uL Normal 4.4-11.0 [facility] Comment on above: Performed By: #### L 500.2500, L506.1001 #### [facility] [address] [place], [address] CTA Chest W/WO Contraston CTA Chest W/WO Contrast [facility] Imaging Services [address] [place] [address] CTA Chest W/WO Contrast MR#: [id number] Acct: [id number] Name: FLEX WOOTEN Rep #: [id number] : 1960 F 64 From: Rafi Bajwa MD PCP: Dr. Rica Padgett, DO Status: [facility] ER Study: CTA Chest W/WO Contrast Date of Exam: 07/27/24 Exam# [id number] Ordering Dr: Rica Pardo [id number] STUDY: CTA CHEST REASON FOR EXAM: Female, 64 years old. dyspnea RADIATION DOSAGE (If Supplied By Facility): CTDIvol = ( 15.03 ) mGy, DLP = ( 493.06 ) mGycm TECHNIQUE: The examination was performed with the intravenous administration of IV 100mL Isovue-370. Post-processing of the angiographic images was performed, with multiplanar reformation and 3D reconstruction. Individualized dose optimization techniques were used for this CT. COMPARISON: None. FINDINGS: Normal enhancement of the main pulmonary artery and right and left pulmonary arteries. Normal enhancement of the bilateral peripheral pulmonary arteries. There is no demonstrated pulmonary embolism. Normal thoracic aorta and visualized great vessels. There is no demonstrated aortic dissection. Heart is enlarged. There is minor coronary artery calcification Normal mediastinum. Normal hilar regions. Normal visualized trachea and bronchi. The lungs are well expanded. Minimal atelectasis within the dependent portion of left lower lobe. No focal infiltration or pulmonary nodule Normal pleura. Normal chest wall structures. Dorsal spine demonstrates arthritic changes Nonspecific enlarged fatty infiltrated liver CT/CTA Chest W/WO Contrast IMPRESSION: Minimal atelectasis within the dependent portion of left lower lobe. No acute cardiopulmonary pathology. No evidence for pulmonary embolus Electronically Signed: Rafi Bajwa MD at 18:45 EST Reading Location ID and State: [address] [place] [address] Tel , Service support , CC: Dr. iRca Padgett DO; KENNY Hinkle Avionics Safety Inspector: Signed [facility] Chest PA and Lateralon 07-27 Chest PA and Lateral [facility] Imaging Services [address] [place] [address] Chest PA and Lateral MR#: [id number] Acct: [id number] Name: FLEX WOOTEN Rep #: [id number] : 1960 F 64 From: Rafi Bajwa MD PCP: Dr. Rica Padgett DO Status: REG ER Study: Chest PA and Lateral Date of Exam: 07/27/24 Exam# [id number] Ordering Dr: Rica Pardo [id number] STUDY: X-RAY CHEST REASON FOR EXAM: Female, 64 years old. dyspnea TECHNIQUE: PA and lateral COMPARISON: None. FINDINGS: Elevated right hemidiaphragm and mild prominence of markings in the right lower lobe possibly representing mild subsegmental atelectasis. There is no demonstrated pleural abnormality. Normal size heart. Normal mediastinum and cynthia. Normal visualized pulmonary arteries. Normal visualized aortic arch and descending thoracic aorta. Dorsal spine and shoulders demonstrate degenerative change. Normal visualized ribs, and clavicles.. There is no demonstrated abnormality of the visualized soft tissue structures of the upper abdomen. RAD/Chest PA and Lateral IMPRESSION: Elevated right hemidiaphragm and possible mild subsegmental atelectasis at the right base Electronically Signed: Rafi Bajwa MD at 17:03 EST Reading Location ID and State: [address] [place] [address] Tel , Service support , CC: Dr. Rica Padgett DO; KENNY Hinkle Avionics Safety Inspector: Signed [facility] Emergency Department Summary on 07-27-2024 Emergency Department Summary [facility] Medical Records Department [address] [place] [address] Emergency Department Summary 07/27/24 MR#: [id number] Acct: [id number] Name: FLEX WOOTEN Rep #: [id number] : 1960 64 From: Rica COX PCP: Dr. Rica Padgett DO Status:ADM LATRICIA Location: [address] History of Present Illness Chief Complaint: Lower Extremity Injury Narrative Narrative: 64-year-old female with past medical history of type 2 diabetes presents with 5 days of burning and leg cramps in both posterior thigh and upper counts. She states her legs feel restless and she has to get up and down, give her relief. She tried ropinirole for restless legs last night and it did not help. She denies back pain or any shooting pain down the legs. She has no weakness or numbness or tingling. 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 Hallux rigidus, left foot Hypothyroidism Uncontrolled diabetes mellitus Gastroesophageal reflux disease MRSA infection Uses wheelchair Walker as ambulation aid High cholesterol CPAP (continuous positive airway pressure) dependence Sleep apnea Anxiety disorder, unspecified Chronic pain Depressive 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 Obesity hypoventilation syndrome Obesity Normal stress echocardiogram Wears glasses PTSD (post-traumatic stress disorder) Depression Anxiety Thyroid disease Insulin dependent diabetes mellitus Ambulates with cane Fibromyalgia Arthritis DVT (deep venous thrombosis) High cholesterol Migraine headache Back pain Gait instability Syncope Dietary restriction History of diverticulitis Gastric reflux Former smoker ASV (adaptive servo-ventilation) use counseling On home oxygen therapy Shortness of breath on exertion Leg cramps History of pain when walking History of edema History of stress test Hypertension Implantable intrathecal infusion pump present Mixed connective tissue disease Osteoarthritis History of DVT (deep vein thrombosis) History of pulmonary embolus (PE) Atrophic vaginitis Bone spur Osteoarthritis calcium calcifications Mixed connective tissue disease History of neuropathy History of spinal stenosis History of diabetes mellitus Acromioclavicular arthrosis Strain of shoulder, left Neck pain Limb weakness Difficulty balancing Fatigue Shoulder pain DJD (degenerative joint disease) of lumbar spine Home Medications ???Medication ???Instructions ???Recorded ???Last Taken ???Type omeprazole 40 mg capsule,delayed 40 mg PO DAILY GERD 08/30/13 02/20/24 History release trazodone 100 mg tablet 100 mg PO QHS mood 08/30/13 02/19/24 History levothyroxine 50 mcg tablet 50 mcg PO DAILY thyroid 10/21/17 09/15/22 History simvastatin 20 mg tablet 20 mg PO DAILY cholesterol 10/21/17 02/20/24 History atenolol 25 mg tablet 25 mg PO DAILY heart 05/18/19 02/18/24 History methotrexate sodium 2.5 mg tablet 20 mg PO FR fibromyalgia 08/19/20 09/10/22 History leucovorin calcium 10 mg tablet 5 mg PO FR supplement 12/08/20 09/10/22 History cholecalciferol (vitamin D3) 25 25 mcg PO DAILY supplement 09/13/22 09/15/22 History mcg (1,000 unit) capsule lisinopril 20 mg tablet 20 mg PO DAILY blood pressure #30 09/17/22 Unknown Rx tabs gabapentin 100 mg capsule 100 mg PO TID nerve pain 90 days 09/07/23 02/20/24 13:30 Rx #270 caps hydroxyzine pamoate 50 mg capsule 50 mg PO QHS mood #30 caps 09/07/23 Unknown Rx acetaminophen 500 mg tablet 1,000 mg (2 x 500 mg) PO Q6H PRN 03/03/24 Unknown Rx PRN Pain Score 1-3 #120 tabs clonidine HCl 0.1 mg tablet 0.1 mg PO Q8H PRN PRN 03/03/24 02/20/24 13:30 Rx Anxiety/tremors #1 TAB folic acid 1 mg tablet 1 mg PO BREAKFAST #30 tabs 03/03/24 Unknown Rx insulin glargine-yfgn 100 unit/mL 40 unit (0.4 mL) subcut BID #8 pens 03/03/24 Unknown Rx (3 mL) subcutaneous pen insulin lispro 100 unit/mL See Rx Instructions .Route 03/03/24 Unknown Rx subcutaneous pen (Humalog KwikPen .COMPLEX diabetes #15 mL (U-100) Insulin) oxycodone 5 mg tablet 5 mg PO Q4H PRN PRN Pain Score 03/03/24 Unknown Rx 4-10 Or Pre Pt/Ot 1 week #21 tabs escitalopram oxalate 20 mg tablet 20 mg PO DAILY mood #90 tabs 03/26/24 Unknown Rx blood-glucose sensor (FreeStyle #6 ea 04/02/24 Unknown Rx Prema 3 Sensor device) lorazepam 1 mg tablet 1 mg PO TID mood 05/07/24 Unknown History Ozempic 0.25 mg or 0.5 mg (2 mg/3 0.5 mg (0.736 mL) subcut QWEEK #3 06/07/24 Unknown Rx mL) subcutaneous pen injector mL (semaglutide) Allergy/AdvReac Type Severity Reaction Status Date / Time niacin Allergy Itching Verified (more content not included)... [facility] H AND P Exam - [facility] 07-27-2024 H&P Exam - Hospitalist [facility] Medical Records Department [address] [place] [address] H P Exam - Hospitalist 07/27/241915 MR#: [id number] Acct: [id number] Name: FLEX WOOTEN Rep #: [id number] : 1960 64 From: David Caruso DO PCP: Dr. Rica Padgett, DO Status:ADM LATRICIA Location: MT3 DV201-2 HPI - General General Date of Admission: 07/27/24 Date of Service: 07/27/24 Chief Complaint: Fatigue with hypoxia HPI Narrative FLEX WOOTEN, is a 64 F who presented to [facility] ED on 07/27/2024 with 1 week history of worsening bilateral leg cramping with restlessness. Physical exam in the ED was largely unremarkable and lab workup was benign aside from hyperglycemia. However, patient was found to be hypoxic at rest in the 86 to 90% range with drop in saturation with ambulation. Chest x-ray was unremarkable and CTA chest showed no PE and no other concerning findings. Patient wears a CPAP at night with 2 L oxygen bleed in but has never worn oxygen during the day. Given this hypoxia, hospitalist was contacted for admission. I saw the patient at bedside in the ED, was present. Patient was sitting in bedside chair comfortably, conversing normally, in no acute distress. States she has felt better generally since being placed on supplemental oxygen. She currently denies any significant leg pain or cramping. She does deny any shortness of breath at rest or with exertion. Denies any recent upper respiratory illnesses. She is a non-smoker. No other acute concerns at this time. Importantly, patient follows closely with outpatient psychiatry and endocrinology. She was hospitalized here back in late January for a chronic ulcer of the left great toe requiring a podiatric procedure. She then went to the TCU on discharge for 2 weeks given need for nonweightbearing status. Per patient her toe has healed well but she has gained 30 to 40 pounds since then. Her blood sugar control has improved over the last few months with A1c 8.1% on 06/06 but this is also coincided with weight gain. She was started on Ozempic at lowest dose in early May but has not had a noticeable difference in appetite suppression to this point. Patient is currently on lorazepam 1 mg 3 times daily as needed for anxiety as well as oxycodone???acetaminoph en 5-325 mg twice daily as needed for chronic pain. She has been filling these prescriptions regularly and takes both medications about scheduled each day. I discussed with the patient that given her benign pulmonary workup in the ED and several week history of ongoing fatigue, her hypoxia is likely chronic. Based on her history above, I suspect that her significant weight gain recently along with taking multiple medications that reduce respiratory drive are large contributors to her baseline hypoxia. She and were understanding of this and thankful for a possible explanation for how she has been feeling recently. She is agreeable to wearing supplemental oxygen at home but hopes to wean off oxygen in the future with weight loss and possible medication changes after discussion with her psychiatrist. 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 Hallux rigidus, left foot MRSA infection Uses wheelchair Walker as ambulation aid High cholesterol CPAP (continuous positive airway pressure) dependence Sleep apnea Hypothyroidism Anxiety disorder, unspecified Chronic pain Depressive 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 Obesity hypoventilation syndrome Obesity Normal stress echocardiogram Wears glasses PTSD (post-traumatic stress disorder) Depression Anxiety Thyroid disease Insulin dependent diabetes mellitus Ambulates with cane Fibromyalgia Arthritis DVT (deep venous thrombosis) High cholesterol Migraine headache Back pain Gait instability Syncope Dietary restriction History of diverticulitis Gastric reflux Former smoker ASV (adaptive servo-ventilation) use counseling On home oxygen therapy Shortness of breath on exertion Leg cramps History of pain when walking History of edema History of stress test Hypertension Implantable intrathecal infusion pump present Mixed connective tissue disease Osteoarthritis History of DVT (deep vein thrombosis) History of pulmonary embolus (PE) Atrophic vaginitis Bone spur Osteoarthritis calcium calcifications Mixed connective tissue disease History of neuropathy History of spinal stenosis History of diabetes mellitus Acromioclavicular arthrosis Strain of shoulder, left Neck pain Limb weakness Difficulty balancing Fatigue Shoulder pain Gastr (more content not included)... [facility] L501.4020on 07-27-2024 TROPONIN-I HS 5 pg/mL Normal 3.0-54.0 [facility] Comment on above: Order Comment: 'TROP ' Serial specimen #1, #2 or #3: 1 Result Comment: Sherri martinez Note: New Test Units and Gender Specific Reference Ranges. For more information see Policy Stat Procedure [place] High Sensitivity Troponin (TNIH) and attachments. Performed By: #### L 506.1000, L503.0105, L503.6150, L100.0100, L506.0400, L500.4050, L503.6550, L501.9520 #### [facility] [place], [address] Miscellaneous Lab Procedureo n 07-19-2024 [facility] LAB TEST [facility] Comment on above: Order Comment: [id number] URINE TOX Result Comment: [phone] 6+OXYCODONE-BUND (ng/mL) DRUG RESULT SCREEN CUTOFF ____ Amphetamines,Urine Negative ng/mL 1000 Amphetamine test includes Amphetamine and Methamphetamine. Barbiturates Negative ng/mL 200 Benzodiazepines Negative ng/mL 200 Cannabinoid Negative ng/mL 20 Cocaine (Metab) Negative ng/mL 300 Opiates POSITIVE ng/mL 300 Opiates test includes Codeine, Morphine, Hydromorphone, Hydrocodone. Codeine Negative 300 Morphine Negative 300 Hydromorphone POSITIVE Hydromorphone Conf, 1121 ng/mL 300 MS, UR Hydrocodone Negative 300 Oxycodone/Oxymorphone,Urine POSITIVE ng/mL 300 Test includes Oxycodone and Oxymorphone. Oxycodone POSITIVE Oxycodone Conf, 749 ng/mL 300 MS, UR Oxymorphone Negative 300 TESTING PERFORMED AT [facility]. ORIGINAL REPORT ON FILE IN LAB CONTAINS ADDITIONAL TEST SITE INFORMATION. Performed By: #### L 506.1000, L503.0105, L503.6150, L100.0100, L506.0400, L500.4050, L503.6550, L501.9520 #### [facility] [address] [place], [address] Urinalysis, Routine (Dipstic k)on 07-13-2024 BILIRUBIN URINE Negative Normal Negative [facility] Comment on above: Order Comment: CLEAN CATCH Performed By: #### L 506.1000, L503.0105, L503.6150, L100.0100, L506.0400, L500.4050, L503.6550, L501.9520 #### [facility] [address] [place], [address] Clarity (U) Clear Normal Clear [facility] Comment on above: Order Comment: CLEAN CATCH Performed By: #### L 506.1000, L503.0105, L503.6150, L100.0100, L506.0400, L500.4050, L503.6550, L501.9520 #### [facility] [address] [place], [address] Color (U) Yellow Normal Yellow [facility] Comment on above: Order Comment: CLEAN CATCH Performed By: #### L 506.1000, L503.0105, L503.6150, L100.0100, L506.0400, L500.4050, L503.6550, L501.9520 #### [facility] [address] [place], [address] GLUCOSE, UR Normal Normal Normal [facility] Comment on above: Order Comment: CLEAN CATCH Performed By: #### L 506.1000, L503.0105, L503.6150, L100.0100, L506.0400, L500.4050, L503.6550, L501.9520 #### [facility] [address] [place], [address] KETONE UR Negative Normal Negative [facility] Comment on above: Order Comment: CLEAN CATCH Performed By: #### L 506.1000, L503.0105, L503.6150, L100.0100, L506.0400, L500.4050, L503.6550, L501.9520 #### [facility] [address] [place], [address] LEUK ESTERASE 25 /ul Abnormal Negative [facility] Comment on above: Order Comment: CLEAN CATCH Performed By: #### L 506.1000, L503.0105, L503.6150, L100.0100, L506.0400, L500.4050, L503.6550, L501.9520 #### [facility] [address] [place], [address] Nitrite Ql (U) Negative Normal Negative [facility] Comment on above: Order Comment: CLEAN CATCH Performed By: #### L 506.1000, L503.0105, L503.6150, L100.0100, L506.0400, L500.4050, L503.6550, L501.9520 #### [facility] [address] [place], [address] OCCULT BLOOD-UR Negative Normal Negative [facility] Comment on above: Order Comment: CLEAN CATCH Performed By: #### L 506.1000, L503.0105, L503.6150, L100.0100, L506.0400, L500.4050, L503.6550, L501.9520 #### [facility] [address] [place], [address] pH UR 6.0 Normal 5.0 - 8.0 [facility] Comment on above: Order Comment: CLEAN CATCH Performed By: #### L 506.1000, L503.0105, L503.6150, L100.0100, L506.0400, L500.4050, L503.6550, L501.9520 #### [facility] [address] [place], [address] PROT DIPSTX Negative Normal Negative [facility] Comment on above: Order Comment: CLEAN CATCH Performed By: #### L 506.1000, L503.0105, L503.6150, L100.0100, L506.0400, L500.4050, L503.6550, L501.9520 #### [facility] [address] [place], [address] SP.GR. DIPSTX 1.020 Normal 1.002-1.030 [facility] Comment on above: Order Comment: CLEAN CATCH Performed By: #### L 506.1000, L503.0105, L503.6150, L100.0100, L506.0400, L500.4050, L503.6550, L501.9520 #### [facility] [address] [place], [place], [id number] [phone] UROBILI Normal Normal Normal [facility] Comment on above: Order Comment: CLEAN CATCH Performed By: #### L 506.1000, L503.0105, L503.6150, L100.0100, L506.0400, L500.4050, L503.6550, L501.9520 #### [facility] [address] [place], [address] Urine Drug Screen (VISTA)on 07-13-2024 AMPHETAMINES Negative Normal <1000 ng/mL [facility] Comment on above: Order Comment: MEDTO X Performed By: #### L 506.1000, L503.0105, L503.6150, L100.0100, L506.0400, L500.4050, L503.6550, L501.9520 #### [facility] [address] [place], [place], [phone] ([phone] BARBITIURATES Negative Normal < 200 ng/mL [facility] Comment on above: Order Comment: MEDTO X Performed By: #### L 506.1000, L503.0105, L503.6150, L100.0100, L506.0400, L500.4050, L503.6550, L501.9520 #### [facility] [address] [place], [address] BENZODIAZIPINE Negative Normal < 200 ng/mL [facility] Comment on above: Order Comment: MEDTO X Performed By: #### L 506.1000, L503.0105, L503.6150, L100.0100, L506.0400, L500.4050, L503.6550, L501.9520 #### [facility] [address] [place], [address] COCAINE Negative Normal < 300 ng/mL [facility] Comment on above: Order Comment: MEDTO X Performed By: #### L 506.1000, L503.0105, L503.6150, L100.0100, L506.0400, L500.4050, L503.6550, L501.9520 #### [facility] [address] [place], [address] ECSTACY Negative Normal < 500 ng/mL [facility] Comment on above: Order Comment: MEDTO X Performed By: #### L 506.1000, L503.0105, L503.6150, L100.0100, L506.0400, L500.4050, L503.6550, L501.9520 #### [facility] [address] [place], [address] METHADONE Negative Normal < 300 ng/mL [facility] Comment on above: Order Comment: MEDTO X Performed By: #### L 506.1000, L503.0105, L503.6150, L100.0100, L506.0400, L500.4050, L503.6550, L501.9520 #### [facility] [address] [place], [address] OPIATES Positive Abnormal < 300 ng/mL [facility] Comment on above: Order Comment: MEDTO X Performed By: #### L 506.1000, L503.0105, L503.6150, L100.0100, L506.0400, L500.4050, L503.6550, L501.9520 #### [facility] [address] [place], [address] PCP Negative Normal < 25 ng/mL [facility] Comment on above: Order Comment: MEDTO X Performed By: #### L 506.1000, L503.0105, L503.6150, L100.0100, L506.0400, L500.4050, L503.6550, L501.9520 #### [facility] [address] [place], [address] THC Negative Normal < 50 ng/mL [facility] Comment on above: Order Comment: MEDTO X Performed By: #### L 506.1000, L503.0105, L503.6150, L100.0100, L506.0400, L500.4050, L503.6550, L501.9520 #### [facility] [address] [place], [place], [id number] VISTA UDS PH 5 Normal [facility] Comment on above: Order Comment: MEDTO X Performed By: #### L 506.1000, L503.0105, L503.6150, L100.0100, L506.0400, L500.4050, L503.6550, L501.9520 #### [facility] [address] [place], [address] Endocrinology Visit Reporton 06-06-2024 Endocrinology Visit Report [facility] [facility] [place], [place] [address] OFFICE VISIT Date of Service: 06/06/24 MR#: [id number] Acct: [id number] Name: FLEX WOOTEN Rep #: [id number] : 1960 Provider: SAGE hernandez Age/Sex: 64/F [facility] [facility] [place] [facility] Status: Signed Intake Vital Signs 05/07/24 11:31 06/06/24 11:10 Height 5 ft 4 in 5 ft 4 in Weight: 256 lb 6 oz BMI 43.9 BP 127/77 H Blood Pressure Location Rt brachial Position Sitting Pulse 81 Pulse Source Monitor Pulse Oximetry (%) 92 Oxygen Delivery Method room air Intake Visit Reasons: 2 M FU Chief Complaint: f/u diabetes Is patient in pain?: Yes (back) Allergies niacin Allergy (Verified 05/07/24 11:33) Itching venlafaxine Adverse Reaction (Severe, Verified 05/07/24 11:33) Vomiting metformin Adverse Reaction (Intermediate, Verified 05/07/24 11:33) Diarrhea cephalexin (From Keflex) Adverse Reaction (Verified 05/07/24 11:33) Other Medications ???Medication ???Instructions ???Recorded ???Confirmed ???Type omeprazole 40 mg capsule,delayed 40 mg PO DAILY GERD 08/30/13 06/06/24 History release trazodone 100 mg tablet 100 mg PO QHS mood 08/30/13 06/06/24 History levothyroxine 50 mcg tablet 50 mcg PO DAILY thyroid 10/21/17 06/06/24 History simvastatin 20 mg tablet 20 mg PO DAILY cholesterol 10/21/17 06/06/24 History atenolol 25 mg tablet 25 mg PO DAILY heart 05/18/19 06/06/24 History methotrexate sodium 2.5 mg tablet 20 mg PO FR fibromyalgia 08/19/20 06/06/24 History leucovorin calcium 10 mg tablet 5 mg PO FR supplement 12/08/20 06/06/24 History cholecalciferol (vitamin D3) 25 25 mcg PO DAILY supplement 09/13/22 06/06/24 History mcg (1,000 unit) capsule lisinopril 20 mg tablet 20 mg PO DAILY blood pressure #30 09/17/22 06/06/24 Rx tabs gabapentin 100 mg capsule 100 mg PO TID nerve pain 90 days 09/07/23 06/06/24 Rx #270 caps hydroxyzine pamoate 50 mg capsule 50 mg PO QHS mood #30 caps 09/07/23 06/06/24 Rx acetaminophen 500 mg tablet 1,000 mg (2 x 500 mg) PO Q6H PRN 03/03/24 06/06/24 Rx PRN Pain Score 1-3 #120 tabs clonidine HCl 0.1 mg tablet 0.1 mg PO Q8H PRN PRN 03/03/24 06/06/24 Rx Anxiety/tremors #1 TAB folic acid 1 mg tablet 1 mg PO BREAKFAST #30 tabs 03/03/24 06/06/24 Rx insulin glargine-yfgn 100 unit/mL 40 unit (0.4 mL) subcut BID #8 pens 03/03/24 06/06/24 Rx (3 mL) subcutaneous pen insulin lispro 100 unit/mL See Rx Instructions .Route 03/03/24 06/06/24 Rx subcutaneous pen (Humalog KwikPen .COMPLEX diabetes #15 mL (U-100) Insulin) oxycodone 5 mg tablet 5 mg PO Q4H PRN PRN Pain Score 03/03/24 04/02/24 Rx 4-10 Or Pre Pt/Ot 1 week #21 tabs escitalopram oxalate 20 mg tablet 20 mg PO DAILY mood #90 tabs 03/26/24 06/06/24 Rx blood-glucose sensor (FreeStyle #6 ea 04/02/24 06/06/24 Rx Prema 3 Sensor device) lorazepam 1 mg tablet 1 mg PO TID mood 05/07/24 06/06/24 History Have you fallen in the past year?: No PFSH Medical History (Updated 06/07/24 @ 08:01 by Marissa Ruiz NP-C) Essential (primary) hypertension Hyperlipidemia Diabetic polyneuropathy Insomnia 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 Hallux rigidus, left foot Hypothyroidism Uncontrolled diabetes mellitus Gastroesophageal reflux disease MRSA infection Uses wheelchair Walker as ambulation aid High cholesterol CPAP (continuous positive airway pressure) dependence Sleep apnea Anxiety disorder, unspecified Chronic pain Depressive 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 Obesity hypoventilation syndrome Obesity Normal stress echocardiogram Wears glasses PTSD (post-traumatic stress disorder) Depression Anxiety Thyroid disease Insulin dependent diabetes mellitus Ambulates with cane Fibromyalgia Arthritis DVT (deep venous thrombosis) High cholesterol Migraine headache Back pain Gait instability Syncope Dietary restriction History of diverticulitis Gastric reflux Former smoker ASV (adaptive servo-ventilation) use counseling On home oxygen therapy Shortness of breath on exertion Leg cramps History of pain when walking History of edema History of stress test Hypertension Implantable intrathecal infusion pump present Mixed connective tissue disease Osteoarthritis History of DVT (deep vein thrombosis) History of pulmonary embolus (PE) Atrophic vaginitis Bone spur Osteoarthritis calcium calcifications Mixed connective tissue disease History of neuropathy History of spinal stenosis History of diabetes mellitus Acromioclavicular arthrosis Strain of shoulder, left Neck pain Limb weakness Difficulty balancing Fatigue Shoulder pain DJD (degenerative joint disease) of lumbar spine Rachel (more content not included)... Normal [facility] CBC W/Diff, Automatedon 10-0 Absolute Lymph 1.84 X10 3/uL Normal 0.83-4.51 [facility] Comment on above: Performed By: #### L 506.1000, L503.0105, L503.6150, L100.0100, L506.0400, L500.4050, L503.6550, L501.9520 #### [facility] [address] [place], [address] Absolute Neut 4.0 X10 3/uL Normal 2.0-7.7 [facility] Comment on above: Performed By: #### L 506.1000, L503.0105, L503.6150, L100.0100, L506.0400, L500.4050, L503.6550, L501.9520 #### [facility] [address] [place], [address] Basophils/100 WBC (Bld) 0.6 % Normal 0-1 [facility] Comment on above: Performed By: #### L 506.1000, L503.0105, L503.6150, L100.0100, L506.0400, L500.4050, L503.6550, L501.9520 #### [facility] [address] [place], [address] Eosinophils/100 WBC (Bld) 2.7 % Normal 0-5 [facility] Comment on above: Performed By: #### L 506.1000, L503.0105, L503.6150, L100.0100, L506.0400, L500.4050, L503.6550, L501.9520 #### [facility] [address] [place], [address] Erythrocyte distribution width (RBC) [Ratio] 13.7 % Normal 11.6-14.6 [facility] Comment on above: Performed By: #### L 506.1000, L503.0105, L503.6150, L100.0100, L506.0400, L500.4050, L503.6550, L501.9520 #### [facility] [address] [place], [address] Hematocrit (Bld) [Volume fraction] 42.9 % Normal 37-47 [facility] Comment on above: Performed By: #### L 506.1000, L503.0105, L503.6150, L100.0100, L506.0400, L500.4050, L503.6550, L501.9520 #### [facility] [address] [place], [address] Hemoglobin (Bld) [Mass/Vol] 13.4 g/dL Normal 12.0-15.0 [facility] Comment on above: Performed By: #### L 506.1000, L503.0105, L503.6150, L100.0100, L506.0400, L500.4050, L503.6550, L501.9520 #### [facility] [address] [place], [address] IG% 0.500 Normal 0.0-0.9 [facility] Comment on above: Result Comment: IG% - Immature Granulocytes (promyelocytes, myelocytes and metamyelocytes) > 1% indicates that a LEFT SHIFT is Present. Performed By: #### L 506.1000, L503.0105, L503.6150, L100.0100, L506.0400, L500.4050, L503.6550, L501.9520 #### [facility] [address] [place], [address] Lymphocytes/100 WBC (Bld) 27.8 % Normal 19-41 [facility] Comment on above: Performed By: #### L 506.1000, L503.0105, L503.6150, L100.0100, L506.0400, L500.4050, L503.6550, L501.9520 #### [facility] [address] [place], [address] MCH (RBC) [Entitic mass] 28.7 pg Normal 27.0-32.0 [facility] Comment on above: Performed By: #### L 506.1000, L503.0105, L503.6150, L100.0100, L506.0400, L500.4050, L503.6550, L501.9520 #### [facility] [address] [place], [address] MCHC (RBC) [Mass/Vol] 31.2 g/dL Low 32-36 [facility] Comment on above: Performed By: #### L 506.1000, L503.0105, L503.6150, L100.0100, L506.0400, L500.4050, L503.6550, L501.9520 #### [facility] [address] [place], [address] MCV (RBC) [Entitic vol] 91.9 fL Normal 81-99 [facility] Comment on above: Performed By: #### L 506.1000, L503.0105, L503.6150, L100.0100, L506.0400, L500.4050, L503.6550, L501.9520 #### [facility] [address] [place], [address] Monocytes/100 WBC (Bld) 7.7 % Normal 0-10 [facility] Comment on above: Performed By: #### L 506.1000, L503.0105, L503.6150, L100.0100, L506.0400, L500.4050, L503.6550, L501.9520 #### [facility] [address] [place], [address] Neutrophils/100 WBC (Bld) 60.7 % Normal 47-70 [facility] Comment on above: Performed By: #### L 506.1000, L503.0105, L503.6150, L100.0100, L506.0400, L500.4050, L503.6550, L501.9520 #### [facility] [address] [place], [address] Nucleated RBC (Bld) [#/Vol] 0 10*3/uL Normal 0-5 [facility] Comment on above: Performed By: #### L 506.1000, L503.0105, L503.6150, L100.0100, L506.0400, L500.4050, L503.6550, L501.9520 #### [facility] [address] [place], [address] Platelet mean volume (Bld) [Entitic vol] 9.6 fL Normal 6.2-12.0 [facility] Comment on above: Performed By: #### L 506.1000, L503.0105, L503.6150, L100.0100, L506.0400, L500.4050, L503.6550, L501.9520 #### [facility] [address] [place], [address] Platelets (Bld) [#/Vol] 228 10*3/uL Normal 150-450 [facility] Comment on above: Performed By: #### L 506.1000, L503.0105, L503.6150, L100.0100, L506.0400, L500.4050, L503.6550, L501.9520 #### [facility] [address] [place], [address] RBC (Bld) [#/Vol] 4.67 10*6/uL Normal 4.2-5.4 [facility] Comment on above: Performed By: #### L 506.1000, L503.0105, L503.6150, L100.0100, L506.0400, L500.4050, L503.6550, L501.9520 #### [facility] [address] [place], [address] RDW SD 46.1 fl High 35.1-43.9 [facility] Comment on above: Performed By: #### L 506.1000, L503.0105, L503.6150, L100.0100, L506.0400, L500.4050, L503.6550, L501.9520 #### [facility] [address] [place], [address] WBC (Bld) [#/Vol] 6.6 10*3/uL Normal 4.4-11.0 [facility] Comment on above: Performed By: #### L 506.1000, L503.0105, L503.6150, L100.0100, L506.0400, L500.4050, L503.6550, L501.9520 #### [facility] [address] [place], [address] Comprehensive [facility] 06-01-2024 Albumin [Mass/Vol] 3.3 g/dL Normal 3.2-5.0 [facility] Comment on above: Performed By: #### L 506.1000, L503.0105, L503.6150, L100.0100, L506.0400, L500.4050, L503.6550, L501.9520 #### [facility] [address] [place], [address] Albumin/Globulin [Mass ratio] 0.8 {ratio} Low 0.9-2.4 [facility] Comment on above: Performed By: #### L 506.1000, L503.0105, L503.6150, L100.0100, L506.0400, L500.4050, L503.6550, L501.9520 #### [facility] [address] [place], [address] ALK P 102 U/L Normal 45-117 [facility] Comment on above: Performed By: #### L 506.1000, L503.0105, L503.6150, L100.0100, L506.0400, L500.4050, L503.6550, L501.9520 #### [facility] [address] [place], [address] ALT [Catalytic activity/Vol] 66 U/L High 13-56 [facility] Comment on above: Performed By: #### L 506.1000, L503.0105, L503.6150, L100.0100, L506.0400, L500.4050, L503.6550, L501.9520 #### [facility] [address] [place], [address] AST [Catalytic activity/Vol] 63 U/L High 15-37 [facility] Comment on above: Performed By: #### L 506.1000, L503.0105, L503.6150, L100.0100, L506.0400, L500.4050, L503.6550, L501.9520 #### [facility] [address] [place], [address] Bilirubin [Mass/Vol] 0.30 mg/dL Normal 0.20-1.00 [facility] Comment on above: Result Comment: For patients on eltrombopag therapy, use of Dimension [place] TBIL is not recommended. Performed By: #### L 506.1000, L503.0105, L503.6150, L100.0100, L506.0400, L500.4050, L503.6550, L501.9520 #### [facility] [address] [place], [address] BUN/CRE 18.1 RATIO Normal 10-20 [facility] Comment on above: Performed By: #### L 506.1000, L503.0105, L503.6150, L100.0100, L506.0400, L500.4050, L503.6550, L501.9520 #### [facility] [address] [place], [address] CA,Total 9.4 mg/dL Normal 8.5-10.1 [facility] Comment on above: Performed By: #### L 506.1000, L503.0105, L503.6150, L100.0100, L506.0400, L500.4050, L503.6550, L501.9520 #### [facility] [address] [place], [address] Chloride [Moles/Vol] 102 mmol/L Normal 98-107 [facility] Comment on above: Performed By: #### L 506.1000, L503.0105, L503.6150, L100.0100, L506.0400, L500.4050, L503.6550, L501.9520 #### [facility] [address] [place], [address] CO2 [Moles/Vol] 29.0 mmol/L Normal 21.0-32.0 [facility] Comment on above: Performed By: #### L 506.1000, L503.0105, L503.6150, L100.0100, L506.0400, L500.4050, L503.6550, L501.9520 #### [facility] [address] [place], [address] Creatinine [Mass/Vol] 0.88 mg/dL Normal 0.55-1.02 [facility] Comment on above: Result Comment: The validity of the calculated GFR GFRAA in patients over 70 years has not been determined. Clinical correlation is essential. Performed By: #### L 506.1000, L503.0105, L503.6150, L100.0100, L506.0400, L500.4050, L503.6550, L501.9520 #### [facility] [address] [place], [address] EST GFR - AA 82 mL/min Normal >60 [facility] Comment on above: Result Comment: Afri can Macanese GFR Calc Performed By: #### L 506.1000, L503.0105, L503.6150, L100.0100, L506.0400, L500.4050, L503.6550, L501.9520 #### [facility] [address] [place], [place], [phone] (084) GAP 7 Normal 5-15 [facility] Comment on above: Performed By: #### L 506.1000, L503.0105, L503.6150, L100.0100, L506.0400, L500.4050, L503.6550, L501.9520 #### [facility] [address] [place], [place], [id number] (552 GFR/1.73 sq M.predicted among non-blacks MDRD (S/P/Bld) [Vol rate/Area] 68 mL/min/{1.73_m2} Normal >60 [facility] Comment on above: Result Comment: Non- GFR Calc Performed By: #### L 506.1000, L503.0105, L503.6150, L100.0100, L506.0400, L500.4050, L503.6550, L501.9520 #### [facility] [address] [place], [address] Globulin (S) [Mass/Vol] 4.0 g/dL Normal 2.2-4.2 [facility] Comment on above: Performed By: #### L 506.1000, L503.0105, L503.6150, L100.0100, L506.0400, L500.4050, L503.6550, L501.9520 #### [facility] [address] [place], [address] Glucose [Mass/Vol] 195 mg/dL High 74-106 [facility] Comment on above: Result Comment: Fast ing Glucose result greater than or equal to 126 mg/dL suggests DIABETES MELLITUS per A.D.A. criteria. Performed By: #### L 506.1000, L503.0105, L503.6150, L100.0100, L506.0400, L500.4050, L503.6550, L501.9520 #### [facility] [address] [place], [address] Potassium [Moles/Vol] 3.8 mmol/L Normal 3.5-5.1 [facility] Comment on above: Performed By: #### L 506.1000, L503.0105, L503.6150, L100.0100, L506.0400, L500.4050, L503.6550, L501.9520 #### [facility] [address] [place], [address] Sodium [Moles/Vol] 138 mmol/L Normal 136-145 [facility] Comment on above: Performed By: #### L 506.1000, L503.0105, L503.6150, L100.0100, L506.0400, L500.4050, L503.6550, L501.9520 #### [facility] [address] [place], [address] T PROT 7.3 g/dL Normal 6.4-8.2 [facility] Comment on above: Performed By: #### L 506.1000, L503.0105, L503.6150, L100.0100, L506.0400, L500.4050, L503.6550, L501.9520 #### [facility] [address] [place], [address] Urea nitrogen [Mass/Vol] 16 mg/dL Normal 7-18 [facility] Comment on above: Performed By: #### L 506.1000, L503.0105, L503.6150, L100.0100, L506.0400, L500.4050, L503.6550, L501.9520 #### [facility] [address] [place], [address] Ferritinon 06-01-2024 Ferritin [Mass/Vol] 31 ng/mL Normal 8-252 [facility] Comment on above: Performed By: #### L 500.2500, L506.1001 #### [facility] [address] [place], [address] Ironon 06-01-2024 Iron [Mass/Vol] 78 ug/dL Normal 50-170 [facility] Comment on above: Performed By: #### L 506.1000, L503.0105, L503.6150, L100.0100, L506.0400, L500.4050, L503.6550, L501.9520 #### [facility] [address] [place], [address] T4 Free Directon 06-01-2024 T4 FREE DIRECT 1.07 ng/dL Normal 0.76-1.46 [facility] Comment on above: Performed By: #### L 500.2500, L506.1001 #### [facility] [address] [place], [address] Thyroid Stim Hormone (TSH)on 06-01-2024 TSH 2.790 uIU/mL Normal 0.358-3.740 [facility] Comment on above: Performed By: #### L 506.1000, L503.0105, L503.6150, L100.0100, L506.0400, L500.4050, L503.6550, L501.9520 #### [facility] [address] [place], [address] Vitamin B12on 06-01-2024 Cobalamin (Vitamin B12) [Mass/Vol] 613 pg/mL Normal 211-911 [facility] Comment on above: Performed By: #### L 506.1000, L503.0105, L503.6150, L100.0100, L506.0400, L500.4050, L503.6550, L501.9520 #### [facility] [address] [place], [place], [id number] Vitamin D,25 Hydroxyon 06-01 Vitamin D 25-OH 38.7 ng/mL Normal [facility] Comment on above: Result Comment: Ashley min D 25(OH) Status Range Deficiency <20 ng/mL (50nmol/L) Insufficiency 20 - 30 ng/mL (50 - 75 nmol/L) Sufficiency 30 - 100 ng/mL (75 - 250 nmol/L) Toxicity >100 ng/mL (>250 nmol/L) Performed By: #### L 506.1000, L503.0105, L503.6150, L100.0100, L506.0400, L500.4050, L503.6550, L501.9520 #### [facility] [address] [place], [place], [address] MR/BMS.BPon 05-07-2024 MR/BMS.BP [address], [address] [place] [address] OFFICE VISIT Date of Service: 05/07/24 MR#: [id number] Acct: [id number] Name: FLEX WOOTEN Rep #: [id number] : 1960 Provider: Dr. Pj Anglin se, DO Age/Sex: 63/F Location: BMS.BP Status: Signed Intake Vital Signs 02/02/24 11:41 04/02/24 11:17 05/07/24 11:31 05/07/24 11:31 Height 5 ft 4 in 5 ft 4 in 5 ft 4 in 5 ft 4 in Weight: 225 lb BMI 38.6 Pulse Oximetry (%) 91 BP Intake Visit Reasons: 3 M FU Accompanied by: Allergies niacin Allergy (Verified 05/07/24 11:33) Itching venlafaxine Adverse Reaction (Severe, Verified 05/07/24 11:33) Vomiting metformin Adverse Reaction (Intermediate, Verified 05/07/24 11:33) Diarrhea cephalexin (From Keflex) Adverse Reaction (Verified 05/07/24 11:33) Other Medications ???Medication ???Instructions ???Recorded ???Confirmed ???Type omeprazole 40 mg capsule,delayed 40 mg PO DAILY GERD 08/30/13 04/02/24 History release trazodone 100 mg tablet 100 mg PO QHS mood 08/30/13 04/02/24 History levothyroxine 50 mcg tablet 50 mcg PO DAILY thyroid 10/21/17 04/02/24 History simvastatin 20 mg tablet 20 mg PO DAILY cholesterol 10/21/17 04/02/24 History atenolol 25 mg tablet 25 mg PO DAILY heart 05/18/19 04/02/24 History methotrexate sodium 2.5 mg tablet 20 mg PO FR fibromyalgia 08/19/20 04/02/24 History leucovorin calcium 10 mg tablet 5 mg PO FR supplement 12/08/20 04/02/24 History cholecalciferol (vitamin D3) 25 25 mcg PO DAILY supplement 09/13/22 04/02/24 History mcg (1,000 unit) capsule lisinopril 20 mg tablet 20 mg PO DAILY blood pressure #30 09/17/22 04/02/24 Rx tabs gabapentin 100 mg capsule 100 mg PO TID nerve pain 90 days 09/07/23 04/02/24 Rx #270 caps hydroxyzine pamoate 50 mg capsule 50 mg PO QHS mood #30 caps 09/07/23 04/02/24 Rx acetaminophen 500 mg tablet 1,000 mg (2 x 500 mg) PO Q6H PRN 03/03/24 04/02/24 Rx PRN Pain Score 1-3 #120 tabs clonidine HCl 0.1 mg tablet 0.1 mg PO Q8H PRN PRN 03/03/24 04/02/24 Rx Anxiety/tremors #1 TAB folic acid 1 mg tablet 1 mg PO BREAKFAST #30 tabs 03/03/24 04/02/24 Rx insulin glargine-yfgn 100 unit/mL 40 unit (0.4 mL) subcut BID #8 pens 03/03/24 04/02/24 Rx (3 mL) subcutaneous pen insulin lispro 100 unit/mL See Rx Instructions .Route 03/03/24 04/02/24 Rx subcutaneous pen (Humalog KwikPen .COMPLEX diabetes #15 mL (U-100) Insulin) oxycodone 5 mg tablet 5 mg PO Q4H PRN PRN Pain Score 03/03/24 04/02/24 Rx 4-10 Or Pre Pt/Ot 1 week #21 tabs escitalopram oxalate 20 mg tablet 20 mg PO DAILY mood #90 tabs 03/26/24 04/02/24 Rx blood-glucose sensor (FreeStyle #6 ea 04/02/24 Rx Prema 3 Sensor device) lorazepam 1 mg tablet 1 mg PO TID mood 05/07/24 05/07/24 History Have you fallen in the past year?: Yes PFSH Medical History Diabetic polyneuropathy Essential (primary) hypertension Hyperlipidemia Insomnia 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 Hallux rigidus, left foot Hypothyroidism Uncontrolled diabetes mellitus Gastroesophageal reflux disease MRSA infection Uses wheelchair Walker as ambulation aid High cholesterol CPAP (continuous positive airway pressure) dependence Sleep apnea Anxiety disorder, unspecified Chronic pain Depressive 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 Obesity hypoventilation syndrome Obesity Normal stress echocardiogram Wears glasses PTSD (post-traumatic stress disorder) Depression Anxiety Thyroid disease Insulin dependent diabetes mellitus Ambulates with cane Fibromyalgia Arthritis DVT (deep venous thrombosis) High cholesterol Migraine headache Back pain Gait instability Syncope Dietary restriction History of diverticulitis Gastric reflux Former smoker ASV (adaptive servo-ventilation) use counseling On home oxygen therapy Shortness of breath on exertion Leg cramps History of pain when walking History of edema History of stress test Hypertension Implantable intrathecal infusion pump present Mixed connective tissue disease Osteoarthritis History of DVT (deep vein thrombosis) History of pulmonary embolus (PE) Atrophic vaginitis Bone spur Osteoarthritis calcium calcifications Mixed connective tissue disease History of neuropathy History of spinal stenosis History of diabetes mellitus Acromioclavicular arthrosis Strain of shoulder, left Neck pain Limb weakness Difficulty balancing Fatigue Shoulder pain DJD (degenerative joint disease) of lumbar spine Surgical History History of bunionectomy of both great toes History of lumbar fusion History of total right knee replacement Hx of surg (more content not included)... Normal [facility] Basic Metabolic Profile (BMP )on 04-03-2024 BUN Normal 7-18 [facility] Comment on above: Result Comment: Canc elled via OM: Order cancelled - Patient discharged Performed By: #### L 500.2500, L506.1001 #### [facility] [address] [facility] [address] BUN/CRE Normal 10-20 [facility] Comment on above: Result Comment: Canc elled via OM: Order cancelled - Patient discharged Performed By: #### L 500.2500, L506.1001 #### [facility] [address] [place], [address] CA,Total Normal 8.5-10.1 [facility] Comment on above: Result Comment: Canc elled via OM: Order cancelled - Patient discharged Performed By: #### L 500.2500, L506.1001 #### [facility] [address] [place], [address] CL Normal 98-107 [facility] Comment on above: Result Comment: Canc elled via OM: Order cancelled - Patient discharged Performed By: #### L 500.2500, L506.1001 #### [facility] [address] [place], [address] CO2 Normal 21.0-32.0 [facility] Comment on above: Result Comment: Canc elled via OM: Order cancelled - Patient discharged Performed By: #### L 500.2500, L506.1001 #### [facility] [address] [place], [address] CREAT,SERUM Normal 0.55-1.02 [facility] Comment on above: Result Comment: Canc elled via OM: Order cancelled - Patient discharged Performed By: #### L 500.2500, L506.1001 #### [facility] [address] [place], [address] EST GFR Normal >60 [facility] Comment on above: Result Comment: Canc elled via OM: Order cancelled - Patient discharged Performed By: #### L 500.2500, L506.1001 #### [facility] [address] [place], [address] EST GFR - AA Normal >60 [facility] Comment on above: Result Comment: Canc elled via OM: Order cancelled - Patient discharged Performed By: #### L 500.2500, L506.1001 #### [facility] [address] [place], [address] GAP Normal 5-15 [facility] Comment on above: Result Comment: Canc elled via OM: Order cancelled - Patient discharged Performed By: #### L 500.2500, L506.1001 #### [facility] [address] [place], [address] GLU Normal 74-106 [facility] Comment on above: Result Comment: Canc elled via OM: Order cancelled - Patient discharged Performed By: #### L 500.2500, L506.1001 #### [facility] [address] [place], [address] Potassium Normal 3.5-5.1 [facility] Comment on above: Result Comment: Canc elled via OM: Order cancelled - Patient discharged Performed By: #### L 500.2500, L506.1001 #### [facility] [address] [place], [address] Basic Metabolic Profile (BMP) Normal 136-145 [facility] Comment on above: Result Comment: Canc elled via OM: Order cancelled - Patient discharged Performed By: #### L 500.2500, L506.1001 #### [facility] [address] [place], [address] CBC W/Diff, Automatedon 08-0 -2023 Absolute Neut Normal 2.0-7.7 [facility] Comment on above: Result Comment: Canc elled via OM: Order cancelled - Patient discharged Performed By: #### L 501.080 #### [facility] [address] [place], [address] HCT Normal 37-47 [facility] Comment on above: Result Comment: Canc elled via OM: Order cancelled - Patient discharged Performed By: #### L 501.080 #### [facility] [address] [place], [address] HGB Normal 12.0-15.0 [facility] Comment on above: Result Comment: Canc elled via OM: Order cancelled - Patient discharged Performed By: #### L 501.080 #### [facility] [address] [place], [address] MCH Normal 27.0-32.0 [facility] Comment on above: Result Comment: Canc elled via OM: Order cancelled - Patient discharged Performed By: #### L 501.080 #### [facility] [address] [place], [address] MCHC Normal 32-36 [facility] Comment on above: Result Comment: Canc elled via OM: Order cancelled - Patient discharged Performed By: #### L 501.080 #### [facility] [address] [place], [address] MCV Normal 81-99 [facility] Comment on above: Result Comment: Canc elled via OM: Order cancelled - Patient discharged Performed By: #### L 501.080 #### [facility] [address] [place], [address] NEUT% Normal 47-70 [facility] Comment on above: Result Comment: Canc elled via OM: Order cancelled - Patient discharged Performed By: #### L 501.080 #### [facility] [address] [place], [address] PLT Normal 150-450 [facility] Comment on above: Result Comment: Canc elled via OM: Order cancelled - Patient discharged Performed By: #### L 501.080 #### [facility] [address] [place], [address] RBC Normal 4.2-5.4 [facility] Comment on above: Result Comment: Canc elled via OM: Order cancelled - Patient discharged Performed By: #### L 501.080 #### [facility] [address] [place], [address] RDW CV Normal 11.6-14.6 [facility] Comment on above: Result Comment: Canc elled via OM: Order cancelled - Patient discharged Performed By: #### L 501.080 #### [facility] [address] [place], [address] RDW SD Normal 35.1-43.9 [facility] Comment on above: Result Comment: Canc elled via OM: Order cancelled - Patient discharged Performed By: #### L 501.080 #### [facility] [address] [place], [address] WBC Normal 4.4-11.0 [facility] Comment on above: Result Comment: Canc elled via OM: Order cancelled - Patient discharged Performed By: #### L 501.080 #### [facility] [address] [place], [address] Endocrinology Visit Reporton 04-02-2024 Endocrinology Visit Report [facility] [address] [place] [address] OFFICE VISIT Date of Service: 04/02/24 MR#: [id number] Acct: [id number] Name: FLEX WOOTEN Rep #: [id number] : 1960 Provider: SAGE hernandez Age/Sex: 63/F Location: [facility] Status: Signed Intake Vital Signs 02/29/24 09:35 04/02/24 11:17 Height 5 ft 4 in 5 ft 4 in BP 135/77 H Blood Pressure Location Lt brachial Position Sitting Respiration 16 Pulse 92 Pulse Source Monitor Temp 97.7 F L Temp Source Temporal Pulse Oximetry (%) 93 Oxygen Delivery Method room air Comment pt refused weight due to boot on foot Intake Visit Reasons: 8 M FU Chief Complaint: f/u diabetes Cost And Risk Analysis Manager Required: No Accompanied by: Self Is patient in pain?: No Allergies niacin Allergy (Verified 04/02/24 11:12) Itching venlafaxine Adverse Reaction (Severe, Verified 04/02/24 11:12) Vomiting metformin Adverse Reaction (Intermediate, Verified 04/02/24 11:12) Diarrhea cephalexin (From Keflex) Adverse Reaction (Verified 04/02/24 11:12) Other Medications ???Medication ???Instructions ???Recorded ???Confirmed ???Type omeprazole 40 mg capsule,delayed 40 mg PO DAILY GERD 08/30/13 04/02/24 History release trazodone 100 mg tablet 100 mg PO QHS mood 08/30/13 04/02/24 History levothyroxine 50 mcg tablet 50 mcg PO DAILY thyroid 10/21/17 04/02/24 History simvastatin 20 mg tablet 20 mg PO DAILY cholesterol 10/21/17 04/02/24 History atenolol 25 mg tablet 25 mg PO DAILY heart 05/18/19 04/02/24 History methotrexate sodium 2.5 mg tablet 20 mg PO FR fibromyalgia 08/19/20 04/02/24 History leucovorin calcium 10 mg tablet 5 mg PO FR supplement 12/08/20 04/02/24 History cholecalciferol (vitamin D3) 25 25 mcg PO DAILY supplement 09/13/22 04/02/24 History mcg (1,000 unit) capsule lisinopril 20 mg tablet 20 mg PO DAILY blood pressure #30 09/17/22 04/02/24 Rx tabs gabapentin 100 mg capsule 100 mg PO TID nerve pain 90 days 09/07/23 04/02/24 Rx #270 caps hydroxyzine pamoate 50 mg capsule 50 mg PO QHS mood #30 caps 09/07/23 04/02/24 Rx acetaminophen 500 mg tablet 1,000 mg (2 x 500 mg) PO Q6H PRN 03/03/24 04/02/24 Rx PRN Pain Score 1-3 #120 tabs clonidine HCl 0.1 mg tablet 0.1 mg PO Q8H PRN PRN 03/03/24 04/02/24 Rx Anxiety/tremors #1 TAB folic acid 1 mg tablet 1 mg PO BREAKFAST #30 tabs 03/03/24 04/02/24 Rx insulin glargine-yfgn 100 unit/mL 40 unit (0.4 mL) subcut BID #8 pens 03/03/24 04/02/24 Rx (3 mL) subcutaneous pen insulin lispro 100 unit/mL See Rx Instructions .Route 03/03/24 04/02/24 Rx subcutaneous pen (Humalog KwikPen .COMPLEX diabetes #15 mL (U-100) Insulin) lorazepam 1 mg tablet 1 mg PO BID mood 1 week #14 tabs 03/03/24 04/02/24 Rx oxycodone 5 mg tablet 5 mg PO Q4H PRN PRN Pain Score 03/03/24 04/02/24 Rx 4-10 Or Pre Pt/Ot 1 week #21 tabs escitalopram oxalate 20 mg tablet 20 mg PO DAILY mood #90 tabs 03/26/24 04/02/24 Rx blood-glucose sensor (FreeStyle #6 ea 04/02/24 Rx Prema 3 Sensor device) Have you fallen in the past year?: No PFSH Medical History Diabetic polyneuropathy Essential (primary) hypertension Hyperlipidemia Insomnia 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 Hallux rigidus, left foot Hypothyroidism Uncontrolled diabetes mellitus Gastroesophageal reflux disease MRSA infection Uses wheelchair Walker as ambulation aid High cholesterol CPAP (continuous positive airway pressure) dependence Sleep apnea Anxiety disorder, unspecified Chronic pain Depressive 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 Obesity hypoventilation syndrome Obesity Normal stress echocardiogram Wears glasses PTSD (post-traumatic stress disorder) Depression Anxiety Thyroid disease Insulin dependent diabetes mellitus Ambulates with cane Fibromyalgia Arthritis DVT (deep venous thrombosis) High cholesterol Migraine headache Back pain Gait instability Syncope Dietary restriction History of diverticulitis Gastric reflux Former smoker ASV (adaptive servo-ventilation) use counseling On home oxygen therapy Shortness of breath on exertion Leg cramps History of pain when walking History of edema History of stress test Hypertension Implantable intrathecal infusion pump present Mixed connective tissue disease Osteoarthritis History of DVT (deep vein thrombosis) History of pulmonary embolus (PE) Atrophic vaginitis Bone spur Osteoarthritis calcium calcifications Mixed connective tissue disease History of neuropathy History of spinal stenosis History of diabetes mellitus Acromioclavicular arthrosis Strain of shoulder, left Neck pain Mace (more content not included)... Normal [facility] Basic Metabolic Profile (BMP )on 03-27-2024 BUN Normal -18 [facility] Comment on above: Result Comment: Canc elled via OM: Order cancelled - Patient discharged Performed By: #### L 501.080 #### [facility] [address] [facility] [address] BUN/CRE Normal 10-20 [facility] Comment on above: Result Comment: Canc elled via OM: Order cancelled - Patient discharged Performed By: #### L 501.080 #### [facility] [address] [facility] [address] CA,Total Normal 8.5-10.1 [facility] Comment on above: Result Comment: Canc elled via OM: Order cancelled - Patient discharged Performed By: #### L 501.080 #### [facility] [address] [facility] [address] CL Normal 98-107 [facility] Comment on above: Result Comment: Canc elled via OM: Order cancelled - Patient discharged Performed By: #### L 501.080 #### [facility] [address] [place], [address] CO2 Normal 21.0-32.0 [facility] Comment on above: Result Comment: Canc elled via OM: Order cancelled - Patient discharged Performed By: #### L 501.080 #### [facility] [address] [place], [address] CREAT,SERUM Normal 0.55-1.02 [facility] Comment on above: Result Comment: Canc elled via OM: Order cancelled - Patient discharged Performed By: #### L 501.080 #### [facility] [address] [place], [address] EST GFR Normal >60 [facility] Comment on above: Result Comment: Canc elled via OM: Order cancelled - Patient discharged Performed By: #### L 501.080 #### [facility] [address] [place], [address] EST GFR - AA Normal >60 [facility] Comment on above: Result Comment: Canc elled via OM: Order cancelled - Patient discharged Performed By: #### L 501.080 #### [facility] [address] [place], [address] GAP Normal 5-15 [facility] Comment on above: Result Comment: Canc elled via OM: Order cancelled - Patient discharged Performed By: #### L 501.080 #### [facility] [address] [place], [address] GLU Normal 74-106 [facility] Comment on above: Result Comment: Canc elled via OM: Order cancelled - Patient discharged Performed By: #### L 501.080 #### [facility] [address] [place], [address] Potassium Normal 3.5-5.1 [facility] Comment on above: Result Comment: Canc elled via OM: Order cancelled - Patient discharged Performed By: #### L 501.080 #### [facility] [address] [place], [address] Basic Metabolic Profile (BMP) Normal 136-145 [facility] Comment on above: Result Comment: Canc elled via OM: Order cancelled - Patient discharged Performed By: #### L 501.080 #### [facility] [address] [place], [address] CBC W/Diff, Automatedon 07-3 0-2023 Absolute Neut Normal 2.0-7.7 [facility] Comment on above: Result Comment: Canc elled via OM: Order cancelled - Patient discharged Performed By: #### L 501.080 #### [facility] [address] [place], [address] HCT Normal 37-47 [facility] Comment on above: Result Comment: Canc elled via OM: Order cancelled - Patient discharged Performed By: #### L 501.080 #### [facility] [address] [place] [place], [address] HGB Normal 12.0-15.0 [facility] Comment on above: Result Comment: Canc elled via OM: Order cancelled - Patient discharged Performed By: #### L 501.080 #### [facility] [address] [place], [address] MCH Normal 27.0-32.0 [facility] Comment on above: Result Comment: Canc elled via OM: Order cancelled - Patient discharged Performed By: #### L 501.080 #### [facility] [address] [place], [address] MCHC Normal 32-36 [facility] Comment on above: Result Comment: Canc elled via OM: Order cancelled - Patient discharged Performed By: #### L 501.080 #### [facility] [address] [place], [address] MCV Normal 81-99 [facility] Comment on above: Result Comment: Canc elled via OM: Order cancelled - Patient discharged Performed By: #### L 501.080 #### [facility] [address] [place], [address] NEUT% Normal 47-70 [facility] Comment on above: Result Comment: Canc elled via OM: Order cancelled - Patient discharged Performed By: #### L 501.080 #### [facility] [address] [place], [address] PLT Normal 150-450 [facility] Comment on above: Result Comment: Canc elled via OM: Order cancelled - Patient discharged Performed By: #### L 501.080 #### [facility] [address] [place], [address] RBC Normal 4.2-5.4 [facility] Comment on above: Result Comment: Canc elled via OM: Order cancelled - Patient discharged Performed By: #### L 501.080 #### [facility] [address] [place], [address] RDW CV Normal 11.6-14.6 [facility] Comment on above: Result Comment: Canc elled via OM: Order cancelled - Patient discharged Performed By: #### L 501.080 #### [facility] [address] [place], [address] RDW SD Normal 35.1-43.9 [facility] Comment on above: Result Comment: Canc elled via OM: Order cancelled - Patient discharged Performed By: #### L 501.080 #### [facility] [address] [place], [address] WBC Normal 4.4-11.0 [facility] Comment on above: Result Comment: Canc elled via OM: Order cancelled - Patient discharged Performed By: #### L 501.080 #### [facility] [address] [place], [address] Basic Metabolic Profile (BMP )on 03-20-2024 BUN Normal 7-18 [facility] Comment on above: Result Comment: Canc elled via OM: Order cancelled - Patient discharged Performed By: #### L 500.2500, L506.1001 #### [facility] [address] [place], [address] BUN/CRE Normal 10-20 [facility] Comment on above: Result Comment: Canc elled via OM: Order cancelled - Patient discharged Performed By: #### L 500.2500, L506.1001 #### [facility] [address] [place], [address] CA,Total Normal 8.5-10.1 [facility] Comment on above: Result Comment: Canc elled via OM: Order cancelled - Patient discharged Performed By: #### L 500.2500, L506.1001 #### [facility] [address] [place], [address] CL Normal 98-107 [facility] Comment on above: Result Comment: Canc elled via OM: Order cancelled - Patient discharged Performed By: #### L 500.2500, L506.1001 #### [facility] [address] [place], [address] CO2 Normal 21.0-32.0 [facility] Comment on above: Result Comment: Canc elled via OM: Order cancelled - Patient discharged Performed By: #### L 500.2500, L506.1001 #### [facility] [address] [place], [address] CREAT,SERUM Normal 0.55-1.02 [facility] Comment on above: Result Comment: Canc elled via OM: Order cancelled - Patient discharged Performed By: #### L 500.2500, L506.1001 #### [facility] [address] [place], [address] EST GFR Normal >60 [facility] Comment on above: Result Comment: Canc elled via OM: Order cancelled - Patient discharged Performed By: #### L 500.2500, L506.1001 #### [facility] [address] [place], [address] EST GFR - AA Normal >60 [facility] Comment on above: Result Comment: Canc elled via OM: Order cancelled - Patient discharged Performed By: #### L 500.2500, L506.1001 #### [facility] [address] [place], [address] GAP Normal 5-15 [facility] Comment on above: Result Comment: Canc elled via OM: Order cancelled - Patient discharged Performed By: #### L 500.2500, L506.1001 #### [facility] [address] [place], [address] GLU Normal 74-106 [facility] Comment on above: Result Comment: Canc elled via OM: Order cancelled - Patient discharged Performed By: #### L 500.2500, L506.1001 #### [facility] [address] [place], [address] Potassium Normal 3.5-5.1 [facility] Comment on above: Result Comment: Canc elled via OM: Order cancelled - Patient discharged Performed By: #### L 500.2500, L506.1001 #### [facility] [address] [place], [address] Basic Metabolic Profile (BMP) Normal 136-145 [facility] Comment on above: Result Comment: Canc elled via OM: Order cancelled - Patient discharged Performed By: #### L 500.2500, L506.1001 #### [facility] [address] [place], [address] CBC W/Diff, Automatedon 07-2 Absolute Neut Normal 2.0-7.7 [facility] Comment on above: Result Comment: Canc elled via OM: Order cancelled - Patient discharged Performed By: #### L 500.2500, L506.1001 #### [facility] [address] [place], [address] HCT Normal 37-47 [facility] Comment on above: Result Comment: Canc elled via OM: Order cancelled - Patient discharged Performed By: #### L 500.2500, L506.1001 #### [facility] [address] [place], [address] HGB Normal 12.0-15.0 [facility] Comment on above: Result Comment: Canc elled via OM: Order cancelled - Patient discharged Performed By: #### L 500.2500, L506.1001 #### [facility] [address] [place], [address] MCH Normal 27.0-32.0 [facility] Comment on above: Result Comment: Canc elled via OM: Order cancelled - Patient discharged Performed By: #### L 500.2500, L506.1001 #### [facility] [address] [place], [address] MCHC Normal 32-36 [facility] Comment on above: Result Comment: Canc elled via OM: Order cancelled - Patient discharged Performed By: #### L 500.2500, L506.1001 #### [facility] [address] [place], [address] MCV Normal 81-99 [facility] Comment on above: Result Comment: Canc elled via OM: Order cancelled - Patient discharged Performed By: #### L 500.2500, L506.1001 #### [facility] [address] [place], [address] NEUT% Normal 47-70 [facility] Comment on above: Result Comment: Canc elled via OM: Order cancelled - Patient discharged Performed By: #### L 500.2500, L506.1001 #### [facility] [address] [place], [address] PLT Normal 150-450 [facility] Comment on above: Result Comment: Canc elled via OM: Order cancelled - Patient discharged Performed By: #### L 500.2500, L506.1001 #### [facility] [address] [place], [address] RBC Normal 4.2-5.4 [facility] Comment on above: Result Comment: Canc elled via OM: Order cancelled - Patient discharged Performed By: #### L 500.2500, L506.1001 #### [facility] [address] [place], [address] RDW CV Normal 11.6-14.6 [facility] Comment on above: Result Comment: Canc elled via OM: Order cancelled - Patient discharged Performed By: #### L 500.2500, L506.1001 #### [facility] [address] [place], [address] RDW SD Normal 35.1-43.9 [facility] Comment on above: Result Comment: Canc elled via OM: Order cancelled - Patient discharged Performed By: #### L 500.2500, L506.1001 #### [facility] [address] [place], [address] WBC Normal 4.4-11.0 [facility] Comment on above: Result Comment: Canc elled via OM: Order cancelled - Patient discharged Performed By: #### L 500.2500, L506.1001 #### [facility] [address] [place], [address] 36on 11-03-2023 36 Name of caller: Flex Contact phone number: [phone] Relationship to Patient: patient Provider: Dr. Landis [...] hours to return their call: No Normal [facility] COLONOSCOPYon 09-06-2023 Colonoscopy Table formatting fro m the original result was not included. [facility] Colonoscopy studyon 09-06-19 Table formatting fro m the original result [...] of bowel preparation was evaluated using the Butler Bowel Preparation Scale with scores of: right [...] PM Specimens No specimens collected Procedure Location [facility] [address] [place] [id number] Referring Provider Renita Mijares Do [facility], [facility] [address] [place] [address] Procedure Provider Renita Mijares DO [facility] Work Phone: [facility] Work Phone: Radiology Study observation (narrative) [facility] Work Phone: .Auto Diffon 02-24-2023 Basophil, Absolute 0.0 10 3/mcL Normal 0.0-0.2 [facility] ([place]) Comment on above: Performed By: #### C ROMEO BRYANT, ANEU #### [address] [address] Basophils/100 WBC (Bld) 0.2 % Normal 0.0-2.5 [facility] ([place]) Comment on above: Performed By: #### ROMEO FRANCIS, ANEU #### [address] [address] Eosinophil, Absolute 0.4 10 3/mcL Normal 0.0-0.4 [facility] ([place]) Comment on above: Performed By: #### ROMEO FRANCIS, ANEU #### [address] [address] Eosinophils/100 WBC (Bld) 3.7 % Normal 0.0-7.0 [facility] ([place] Comment on above: Performed By: #### ROMEO FRANCIS, ANEU #### [address] [address] Lymphocyte, Absolute 1.9 10 3/mcL Normal 0.8-3.9 [facility] ([place]) Comment on above: Performed By: #### ROMEO FRANCIS, ANEU #### [address] [address] Lymphocytes/100 WBC (Bld) 19.2 % Normal 10.0-50.0 [facility] ([place] Comment on above: Performed By: #### C ROMEO BRYANT, ANEU #### [address] [address] Monocyte, Absolute 0.6 10 3/mcL Normal 0.2-1.0 [facility] ([place]) Comment on above: Performed By: #### C ROMEO BRYANT, ANEU #### [address] [address] Monocytes/100 WBC (Bld) 6.5 % Normal 1.7-13.0 [facility] ([place] Comment on above: Performed By: #### C ROMEO BRYANT, ANEU #### [address] [address] Neutrophils/100 WBC (Bld) 70.4 % Normal 37.0-80.0 [facility] ([place] Comment on above: Performed By: #### ROMEO FRANCIS, ANEU #### [address] [address] .NEUABSon 02-24-2023 Neutrophil, Absolute 6.9 10 3/mcL High 2.9-6.2 [facility] ([place] Comment on above: Performed By: #### ROMEO FRANCIS, ANEU #### [address] [address] CBCon 02-24-2023 Erythrocyte distribution width (RBC) [Ratio] 14.5 % Normal 11.5-14.5 [facility] ([place] Comment on above: Performed By: #### C ROMEO BRYANT, ANEU #### [address] [address] Hematocrit (Bld) [Volume fraction] 34.4 % Low 37.0-47.0 [facility] ([place] Comment on above: Performed By: #### ROMEO FRANCIS, ANEU #### [address] [address] Hgb 11.4 G/dL Low 12.0-16.0 [facility] ([place] Comment on above: Performed By: #### C ROMEO BRYANT, ANEU #### [place] [address] [place], [place] [address] MCH (RBC) [Entitic mass] 29.9 pg Normal 27.0-31.2 [facility] ([place] Comment on above: Performed By: #### ROMEO FRANCIS, ANEU #### [place] [address] [place] [address] MCHC 33.3 G/dL Normal 33.0-37.0 [facility] ([place] Comment on above: Performed By: #### C ROMEO BRYANT, ANEU #### [place] [address] [address] MCV (RBC) [Entitic vol] 89.7 fL Normal 80.0-94.0 [facility] ([place] Comment on above: Performed By: #### ROMEO FRANCIS, ANEU #### [address] [address] Platelet 180 10 3/mcL Normal 130-400 [facility] ([place] Comment on above: Performed By: #### C ROMEO BRYANT, ANEU #### [address] [address] Platelet mean volume (Bld) [Entitic vol] 7.2 fL Low 7.4-10.4 [facility] ([place] Comment on above: Performed By: #### ROMEO FRANCIS, ANEU #### [address] [address] RBC 3.83 10 6/mcL Low 4.20-5.40 [facility] ([place] Comment on above: Performed By: #### ROMEO FRANCIS, ANEU #### [place] [address] [address] WBC 9.8 10 3/mcL Normal 4.6-10.8 [facility] ([place] Comment on above: Performed By: #### ROMEO FRANCIS, ANEU #### [place] [address] [address] LABORATORYOrdered By: Soha Jiang on 02-24-2023 Blood Glucose Testing Reason Routine (02/24/23 11:46 AM) [facility] Glucose [Mass/Vol] 209 mg/dL Invalid Interpretation Code 82 - 115 mg/dL [facility] Blood Glucose Testing Reason Routine (02/24/23 7:05 AM) [facility] Glucose [Mass/Vol] 139 mg/dL Invalid Interpretation Code 82 - 115 mg/dL [facility] LABORATORYOrdered By: SYSTEM SYSTEM on 02-24-2023 Basophil, [...] Basophil, Absolute 0.0 10 3/mcL Normal 0.0-0.2 [facility] ([place] Comment on above: Performed By: #### B MP, GFR, CBC, ADIFF, ANEU #### [address] [address] Basophils/100 WBC (Bld) 0.1 % Normal 0.0-2.5 [facility] ([place] Comment on above: Performed By: #### B MP, GFR, CBC, ADIFF, ANEU #### [address] [address] Eosinophil, Absolute 0.0 10 3/mcL Normal 0.0-0.4 [facility] ([place]) Comment on above: Performed By: #### B MP, GFR, CBC, ADIFF, ANEU #### [address] [address] Eosinophils/100 WBC (Bld) 0.1 % Normal 0.0-7.0 [facility] ([place] Comment on above: Performed By: #### B MP, GFR, CBC, ADIFF, ANEU #### [address] [address] Lymphocyte, Absolute 1.4 10 3/mcL Normal 0.8-3.9 [facility] ([place] Comment on above: Performed By: #### B MP, GFR, CBC, ADIFF, ANEU #### [address] [address] Lymphocytes/100 WBC (Bld) 12.5 % Normal 10.0-50.0 [facility] ([place] Comment on above: Performed By: #### B MP, GFR, CBC, ADIFF, ANEU #### [address] [address] Monocyte, Absolute 0.5 10 3/mcL Normal 0.2-1.0 [facility] ([place] Comment on above: Performed By: #### B MP, GFR, CBC, ADIFF, ANEU #### [address] [address] Monocytes/100 WBC (Bld) 5.0 % Normal 1.7-13.0 [facility] ([place] Comment on above: Performed By: #### B MP, GFR, CBC, ADIFF, ANEU #### [address] [address] Neutrophils/100 WBC (Bld) 82.3 % High 37.0-80.0 [facility] ([place] Comment on above: Performed By: #### B MP, GFR, CBC, ADIFF, ANEU #### [address] [address] .GFRon 02-23-2023 GFR 61 ml/min/1.73sqm Normal [facility] ([place] Comment on above: Result Comment: GFR Population [...] B MP, GFR, CBC, ADIFF, ANEU #### [address] [address] GFR Non- 51 ml/min/1.73sqm Normal [facility] ([place] Comment on above: Result Comment: GFR Population [...] B MP, GFR, CBC, ADIFF, ANEU #### [address] [address] .NEUABSon 02-23-2023 Neutrophil, Absolute 9.0 10 3/mcL High 2.9-6.2 [facility] ([place] Comment on above: Performed By: #### B MP, GFR, CBC, ADIFF, ANEU #### [address] [address] BMPon 02-23-2023 BUN/Creatinine Ratio 16 ratio Normal 7-27 [facility] ([place] Comment on above: Performed By: #### B MP, GFR, CBC, ADIFF, ANEU #### [address] [address] Calcium [Mass/Vol] 8.7 mg/dL Normal 8.4-10.2 [facility] ([place]) Comment on above: Performed By: #### B MP, GFR, CBC, ADIFF, ANEU #### [address] [address] Chloride [Moles/Vol] 103 mmol/L Normal 98-107 [facility] ([place]) Comment on above: Performed By: #### B MP, GFR, CBC, ADIFF, ANEU #### [address] [address] CO2 [Moles/Vol] 30 mmol/L Normal 23-31 [facility] ([place]) Comment on above: Performed By: #### B MP, GFR, CBC, ADIFF, ANEU #### [address] [address] Creatinine [Mass/Vol] 1.09 mg/dL High 0.55-1.02 [facility] ([place]) Comment on above: Performed By: #### B MP, GFR, CBC, ADIFF, ANEU #### [address] [address] Electrolyte Balance 8.0 mEq/L Normal 4.0-15.0 [facility] ([place]) Comment on above: Performed By: #### B MP, GFR, CBC, ADIFF, ANEU #### [address] [address] Glucose [Mass/Vol] 239 mg/dL High 80-115 [facility] ([place]) Comment on above: Performed By: #### B MP, GFR, CBC, ADIFF, ANEU #### [address] [address] Potassium [Moles/Vol] 4.8 mmol/L Normal 3.5-5.1 [facility] ([place]) Comment on above: Performed By: #### B MP, GFR, CBC, ADIFF, ANEU #### [address] [address] Sodium [Moles/Vol] 141 mmol/L Normal 136-145 [facility] ([place] Comment on above: Performed By: #### B MP, GFR, CBC, ADIFF, ANEU #### [address] [address] Urea nitrogen [Mass/Vol] 17 mg/dL Normal 7-18 [facility] ([place] Comment on above: Performed By: #### B MP, GFR, CBC, ADIFF, ANEU #### [address] [address] CBCon 02-23-2023 Erythrocyte distribution width (RBC) [Ratio] 14.4 % Normal 11.5-14.5 [facility] ([place] Comment on above: Performed By: #### B MP, GFR, CBC, ADIFF, ANEU #### [place] [id number] Hematocrit (Bld) [Volume fraction] 34.9 % Low 37.0-47.0 [facility] ([place] Comment on above: Performed By: #### B MP, GFR, CBC, ADIFF, ANEU #### [address] [address] Hgb 11.6 G/dL Low 12.0-16.0 [facility] ([place] Comment on above: Performed By: #### B MP, GFR, CBC, ADIFF, ANEU #### [address] [address] MCH (RBC) [Entitic mass] 29.6 pg Normal 27.0-31.2 [facility] ([place] Comment on above: Performed By: #### B MP, GFR, CBC, ADIFF, ANEU #### [address] [address] MCHC 33.1 G/dL Normal 33.0-37.0 [facility] ([place] Comment on above: Performed By: #### B MP, GFR, CBC, ADIFF, ANEU #### [address] [address] MCV (RBC) [Entitic vol] 89.4 fL Normal 80.0-94.0 [facility] ([place] Comment on above: Performed By: #### B MP, GFR, CBC, ADIFF, ANEU #### [address] [address] Platelet 231 10 3/mcL Normal 130-400 [facility] ([place] Comment on above: Performed By: #### B MP, GFR, CBC, ADIFF, ANEU #### [address] [address] Platelet mean volume (Bld) [Entitic vol] 7.4 fL Normal 7.4-10.4 [facility] ([place] Comment on above: Performed By: #### B MP, GFR, CBC, ADIFF, ANEU #### [address] [address] RBC 3.90 10 6/mcL Low 4.20-5.40 [facility] ([place] Comment on above: Performed By: #### B MP, GFR, CBC, ADIFF, ANEU #### [address] [address] WBC 10.9 10 3/mcL High 4.6-10.8 [facility] ([place] Comment on above: Performed By: #### B MP, GFR, CBC, ADIFF, ANEU #### [address] [address] LABORATORYOrdered By: Jacob Farmer on 02-23-2023 Glucose [Mass/Vol] 171 mg/dL Invalid Interpretation Code 82 - 115 mg/dL [facility] LABORATORYOrdered By: Eduardo Ghotra on 02-23-2023 Blood Glucose Testing Reason Routine (02/23/23 9:26 PM) [facility] LABORATORYOrdered By: Freddy Salomon on 02-23-2023 Stated Blood Glucose 187 [facility] LABORATORYOrdered By: Robert Wright on 02-23-2023 Basophil, [...] 02-22-2023 ABO/Rh Interp Negative Invalid Interpretation Code [facility] ([place] Comment on above: Performed By: #### A CASEY VILLARREAL #### [address] [address] Gel ABSon 02-22-2023 Antibody Screen Gel Negative Normal [facility] ([place]) Comment on above: Performed By: #### A CASEY VILLARREAL #### [place] [address] [place], [place] [address] LABORATORYOrdered By: Kiran Harding on 02-22-2023 Stated Blood Glucose 273 [facility] LABORATORYOrdered By: Alnie weiss on 02-22-2023 Stated Blood Glucose 301 [facility] Time of Stated Blood Glucose [id number] [facility] LABORATORYOrdered By: Ann Marie Joiner on 02-22-2023 [...] 02/22/2023 1:07:27 PM Ordering Provider: PJ MAHONEY [facility] ([place]) CT KNEE W/O CONTRAST RIGHTon 02-04-2023 CT [...] 02/04/2023 9:09:05 AM Ordering Provider: PJ Bolden [facility] ([place]) .Auto Diffon 02-03-2023 Basophil, Absolute 0.0 10 3/mcL Normal 0.0-0.2 [facility] ([place]) Comment on above: Performed By: #### C ROMEO BRYANT, ANEU #### [address] [address] Basophils/100 WBC (Bld) 0.5 % Normal 0.0-2.5 [facility] ([place]) Comment on above: Performed By: #### C ROMEO BRYANT, ANEU #### [address] [address] Eosinophil, Absolute 0.1 10 3/mcL Normal 0.0-0.4 [facility] ([place]) Comment on above: Performed By: #### C ROMEO BRYANT, ANEU #### [address] [address] Eosinophils/100 WBC (Bld) 2.0 % Normal 0.0-7.0 [facility] ([place]) Comment on above: Performed By: #### C ROMEO BRYANT, ANEU #### [address] [address] Lymphocyte, Absolute 2.2 10 3/mcL Normal 0.8-3.9 [facility] ([place]) Comment on above: Performed By: #### C ROMEO BRYANT, ANEU #### [address] [address] Lymphocytes/100 WBC (Bld) 29.2 % Normal 10.0-50.0 [facility] ([place] Comment on above: Performed By: #### C ROMEO BRYANT, ANEU #### [address] [address] Monocyte, Absolute 0.5 10 3/mcL Normal 0.2-1.0 [facility] ([place]) Comment on above: Performed By: #### C ROMEO BRYANT, ANEU #### [address] [address] Monocytes/100 WBC (Bld) 6.3 % Normal 1.7-13.0 [facility] ([place]) Comment on above: Performed By: #### C ROMEO BRYANT, ANEU #### [address] [address] Neutrophils/100 WBC (Bld) 62.0 % Normal 37.0-80.0 [facility] ([place] Comment on above: Performed By: #### C ROMEO BRYANT, ANEU #### [address] [address] .GFRon 02-03-2023 GFR 74 ml/min/1.73sqm Normal [facility] ([place]) Comment on above: Result Comment: GFR Population [...] mL/min/1.73 square meters Performed By: #### C BCROMEO, ANEU #### [address] [address] GFR Non- 61 ml/min/1.73sqm Normal [facility] ([place]) Comment on above: Result Comment: GFR Population [...] mL/min/1.73 square meters Performed By: #### ROMEO FRANCIS ANEU #### [place] [address] [address] .NEUABSon 02-03-2023 Neutrophil, Absolute 4.7 10 3/mcL Normal 2.9-6.2 [facility] ([place]) Comment on above: Performed By: #### ROMEO FRANCIS ANEU #### [address] [address] A1Con 02-03-2023 HbA1c (Bld) [Mass fraction] 6.7 % High 4.3-6.4 [facility] ([place]) Comment on above: Performed By: #### ROMEO FRANCIS ANEU #### [address] [address] ALBon 02-03-2023 Albumin Level 3.6 G/dL Normal 3.4-4.8 [facility] ([place]) Comment on above: Performed By: #### ROMEO FRANCIS ANEU #### [address] [address] BMPon 02-03-2023 BUN/Creatinine Ratio 23 ratio Normal 7-27 [facility] ([place]) Comment on above: Performed By: #### ROMEO FRANCIS ANEU #### [address] [address] Calcium [Mass/Vol] 8.9 mg/dL Normal 8.4-10.2 [facility] ([place]) Comment on above: Performed By: #### C ROMEO BRYANT, ANEU #### [address] [address] Chloride [Moles/Vol] 100 mmol/L Normal 98-107 [facility] ([place]) Comment on above: Performed By: #### C MANNY, ADIFF, ANEU #### [address] [address] CO2 [Moles/Vol] 30 mmol/L Normal 23-31 [facility] ([place]) Comment on above: Performed By: #### C ROMEO BRYANT, ANEU #### [address] [address] Creatinine [Mass/Vol] 0.93 mg/dL Normal 0.55-1.02 [facility] ([place]) Comment on above: Performed By: #### C ROMEO BRYANT, ANEU #### [address] [address] Electrolyte Balance 9.0 mEq/L Normal 4.0-15.0 [facility] ([place]) Comment on above: Performed By: #### C ROMEO BRYANT, ANEU #### [address] [address] Glucose [Mass/Vol] 258 mg/dL High 80-115 [facility] ([place]) Comment on above: Performed By: #### C MANNY, ROMEO, ANEU #### [address] [address] Potassium [Moles/Vol] 4.7 mmol/L Normal 3.5-5.1 [facility] ([place]) Comment on above: Performed By: #### C MANNY, ROMEO, ANEU #### [address] [address] Sodium [Moles/Vol] 139 mmol/L Normal 136-145 [facility] ([place]) Comment on above: Performed By: #### C MANNY, BELINDAIFF, ANEU #### [address] [address] Urea nitrogen [Mass/Vol] 21 mg/dL High 7-18 [facility] ([place] Comment on above: Performed By: #### C BC, ADIFF, ANEU #### [place] [id number] CBCon 02-03-2023 Erythrocyte distribution width (RBC) [Ratio] 15.2 % High 11.5-14.5 [facility] ([place]) Comment on above: Order Comment: Pre-A dmission Testing Performed By: #### C BC, ADIFF, ANEU #### [place] [id number] Hematocrit (Bld) [Volume fraction] 36.6 % Low 37.0-47.0 [facility] ([place]) Comment on above: Order Comment: Pre-A dmission Testing Performed By: #### C BC, ADKRISTIE, ANEU #### [place] [address] Hgb 12.0 G/dL Normal 12.0-16.0 [facility] ([place] Comment on above: Order Comment: Pre-A dmission Testing Performed By: #### C BC, ADKRISTIE, ANEU #### [place] [address] MCH (RBC) [Entitic mass] 29.5 pg Normal 27.0-31.2 [facility] ([place] Comment on above: Order Comment: Pre-A dmission Testing Performed By: #### C BC, ADIFF, ANEU #### [place] [address] MCHC 32.8 G/dL Low 33.0-37.0 [facility] ([place] Comment on above: Order Comment: Pre-A dmission Testing Performed By: #### C BC, ADIFF, ANEU #### [place] [id number] MCV (RBC) [Entitic vol] 90.0 fL Normal 80.0-94.0 [facility] ([place] Comment on above: Order Comment: Pre-A dmission Testing Performed By: #### C BC, ADIFF, ANEU #### [place] [address] Platelet 234 10 3/mcL Normal 130-400 [facility] ([place] Comment on above: Order Comment: Pre-A dmission Testing Performed By: #### C BC, ADIFF, ANEU #### [place] [address] [place], [place] [address] Platelet mean volume (Bld) [Entitic vol] 7.0 fL Low 7.4-10.4 [facility] ([place] Comment on above: Order Comment: Pre-A dmission Testing Performed By: #### C BC, ADIFF, ANEU #### [place] [address] [address] RBC 4.07 10 6/mcL Low 4.20-5.40 [facility] ([place] Comment on above: Order Comment: Pre-A dmission Testing Performed By: #### C BC, ADIFF, ANEU #### [place] [address] [address] WBC 7.5 10 3/mcL Normal 4.6-10.8 [facility] ([place] Comment on above: Order Comment: Pre-A dmission Testing Performed By: #### C BC, ADIFF, ANEU #### [place] [address] [address] Gel ABOon 02-03-2023 ABO/Rh Interp Negative Invalid Interpretation Code [facility] ([place] Comment on above: Order Comment: SURG EDMOND 6/27 -AC Performed By: #### C BC, ADIFF, ANEU #### [place] [address] [address] Gel ABSon 02-03-2023 Antibody Screen Gel Negative Normal [facility] ([place]) Comment on above: Order Comment: SURG EDMOND 6/27 -AC Performed By: #### C BC, ADIFF, ANEU #### [place] [address] [address] LABORATORYOrdered By: Ann Marie Joiner on 02-03-2023 ABO/Rh Interp Negative Invalid Interpretation Code AO BB SS Antibody Screen Gel Negative ABSC (02/03/23 2:34 PM) Invalid Interpretation Code AO BB SS LABORATORYOrdered By: Pitzi SYSTEM on 02-03-2023 Albumin BCP dye [Mass/Vol] [...] peptide B (Bld) [Mass/Vol] 14.9 pg/mL 0-100 [facility] Basophil percentageOrdered B y: Dr. Mckeon on 09-17-2022 Chloride [Moles/Vol] 97 mmol/L 98-107 [facility] Glucose [Mass/Vol] 146 mg/dL 74-106 [facility] [place] Comment on above: Fasting Glucose resu lt greater than or equal to 126 mg/dL suggests DIABETES MELLITUS per A.D.A. criteria. Potassium [Moles/Vol] 3.6 mmol/L 3.5-5.1 [facility] Sodium [Moles/Vol] 139 mmol/L 136-145 [facility] [place] Glucose Glucometer (BldC) [M ass/Vol]Ordered By: Dr. Anderson on 09-17-2022 Glucose [Mass/Vol] 129 mg/dL 74-106 [facility] [place] Comment on above: MANAGEMENT OF PATIEN T CARE PER NURSING PROTOCOL Influenza virus A and B and SARS-CoV-2 (COVID-19) Ag panel - Upper respiratory specimOrdered By: Dr. Anderson on 09-17-2022 SARS-CoV-2 (COVID-19) RNA ROJELIO+probe Ql (Resp) [facility] - Chemistry and C hemistry - challengeOrdered By: Dr. Mckeon on 09-17-2022 CO2 [Moles/Vol] 32.0 mmol/L 21.0-32.0 [facility] Urea nitrogen/Creatinine [Mass ratio] 18.4 mg/mg 10-20 [facility] No Panel InformationOrdered By: Dr. Mckeon on 09-17-2022 Estimated Creatinine Clearance Calc 56.41 ml/min [facility] Estimated GFR (MDRD) Amer 84 mL/min >60 [facility] Comment on above: GFR Calc Estimated GFR (MDRD) Non-Af Amer 70 mL/min >60 [facility] Comment on above: Non- GFR Calc Serum or plasma calcium dread urement (mass/volume)Ordered By: Dr. Mckeon on 09-17-2022 Calcium [Mass/Vol] 8.8 mg/dL 8.5-10.1 [facility] Serum or plasma creatinine m easurement (mass/volume)Ordered By: Dr. Mckeon on 09-17-2022 Creatinine [Mass/Vol] 0.87 mg/dL 0.55-1.02 [facility] Comment on above: The validity of the calculated GFR & GFRAA in patients over 70 years has not been determined. Clinical correlation is essential. Serum or plasma urea nitroge n measurement (mass/volume)Ordered By: Dr. Mckeon on 09-17-2022 Urea nitrogen [Mass/Vol] 16 mg/dL 7-18 [facility] Thin prep Papanicolaou smear with manual screeningOrdered By: Dr. Mckeon on 09-17-2022 Thin prep Papanicolaou smear with manual screening 10 5-15 [facility] Absolute lymphocyte countOrd ered By: Dr. Dee on 09-16-2022 Lymphocytes Auto (Unsp spec) [#/Vol] 1.58 10*3/uL 0.83-4.51 [facility] Assessment of wrist artery p atency prior to arterial punctureOrdered By: Dr. Dee on 09-16-2022 Arterial patency Wrist artery --pre arterial puncture Positive [facility] Base excessOrdered By: Dr. Krystin dean on 09-16-2022 Base excess Calc (BldV) [Moles/Vol] 7 mmol/L -2-2 [facility] Basophil percentageOrdered B y: Dr. Dee on 09-16-2022 Basophil percentage 31.9 mmol/L 22-26 [facility] Basophils/100 WBC (Bld) 95 % 95-99 [facility] Basophil percentage 0 SEEN /hpf 0-5 [facility] Basophils/100 WBC (Bld) 0.4 % 0-1 [facility] Eosinophils/100 WBC (Bld) 3.3 % 0-5 [facility] Neutrophils (Bld) [#/Vol] 5.8 10*3/uL 2.0-7.7 [facility] Neutrophils/100 WBC (Bld) 69.5 % 47-70 [facility] WBC (Bld) [#/Vol] 8.4 10*3/uL 4.4-11.0 [facility] Bilirubin Test strip Ql (U)O rdered By: Dr. Dee on 09-16-2022 Bilirubin Ql (U) Negative Negative [facility] Blood erythrocytes count (nu mber/volume)Ordered By: Dr. Dee on 09-16-2022 RBC (Bld) [#/Vol] 4.41 10*6/uL 4.2-5.4 [facility] Blood hemoglobin measurement (mass/volume)Ordered By: Dr. Dee on 09-16-2022 Hemoglobin (Bld) [Mass/Vol] 12.2 g/dL 12.0-15.0 [facility] Blood lymphocytes/100 leukoc ytesOrdered By: Dr. Dee on 09-16-2022 Lymphocytes/100 WBC (Bld) 18.8 % 19-41 [facility] Blood monocytes/100 leukocyt esOrdered By: Dr. Dee on 09-16-2022 Monocytes/100 WBC (Bld) 7.5 % 0-10 [facility] Blood platelet mean volumeOr dered By: Dr. Dee on 09-16-2022 Platelet mean volume (Bld) [Entitic vol] 10.1 fL 6.2-12.0 [facility] CO2 (BldA) [Partial pressure ]Ordered By: Dr. Dee on 09-16-2022 CO2 (Bld) [Partial pressure] 53.2 mm[Hg] 35-45 [facility] Determination of erythrocyte mean corpuscular volume (MCV)Ordered By: Dr. Dee on 09-16-2022 MCV (RBC) [Entitic vol] 90.0 fL 81-99 [facility] Hematocrit Auto (Bld) [Volum e fraction]Ordered By: Dr. Dee on 09-16-2022 Hematocrit (Bld) [Volume fraction] 39.7 % 37-47 [facility] Ketones Test strip Ql (U)Ord ered By: Dr. Dee on 09-16-2022 Ketones Ql (U) Negative Negative [facility] - Chemistry and C hemistry - challengeOrdered By: Dr. Dee on 09-16-2022 Natriuretic peptide B (Bld) [Mass/Vol] 76.4 pg/mL 0-100 [facility] - Hematology and Cell countsOrdered By: Dr. Dee on 09-16-2022 Erythrocyte distribution width (RBC) [Entitic vol] 45.8 fL 35.1-43.9 [facility] Erythrocyte distribution width (RBC) [Ratio] 14.1 % 11.6-14.6 [facility] Immature granulocytes/100 WBC (Bld) 0.500 % 0.0-0.9 [facility] Comment on above: IG% - Immature Granu locytes (promyelocytes, myelocytes and metamyelocytes) > 1% indicates that a LEFT SHIFT is Present. MCH (RBC) [Entitic mass] 27.7 pg 27.0-32.0 [facility] Nucleated RBC/100 WBC (Bld) [Ratio] 0 % 0-5 [facility] MCHC Auto (RBC) [Mass/Vol]Or dered By: Dr. Dee on 09-16-2022 MCHC (RBC) [Mass/Vol] 30.7 g/dL 32-36 [facility] Mucus LM Ql (Urine sed)Order ed By: Dr. Dee on 09-16-2022 Mucus Ql (Urine sed) 0 SEEN /hpf [facility] Nitrite Test strip Ql (U)Ord ered By: Dr. Dee on 09-16-2022 Nitrite Ql (U) Negative Negative [facility] No Panel InformationOrdered By: Dr. Dee on 09-16-2022 Blood Gas Liter Flow 2.0 /min [facility] Blood Gas Sample Site L Radial [facility] Blood Gas Specimen Type ART [facility] Blood Gas Total CO2 34 mmol/L [facility] Oxygen Delivery Device Cannula [facility] Troponin I High Sensitivity 6 pg/mL 3.0-54.0 [facility] Comment on above: Please Note: New Selene t Units and Gender Specific Reference Ranges. For more information see Policy Stat Procedure [place] High Sensitivity Troponin (TNIH) and attachments. Oxygen (BldA) [Partial press ure]Ordered By: Dr. Dee on 09-16-2022 Oxygen (Bld) [Partial pressure] 79 mmHG 75-100 [facility] Platelets bldOrdered By: Dr. Dee on 09-16-2022 Platelets (Bld) [#/Vol] 254 10*3/uL 150-450 [facility] Protein Test strip Ql (U)Ord ered By: Dr. Dee on 09-16-2022 Protein Ql (U) Negative Negative [facility] Squamous epithelial cells de tection in urine sediment by light microscopyOrdered By: Dr. Dee on 09-16-2022 Epithelial cells.squamous LM Ql (Urine sed) 0-5 SEEN /hpf 5-10 [facility] Urine blood detectionOrdered By: Dr. Dee on 09-16-2022 RBC Ql (U) Negative Negative [facility] RBC Ql (U) 0 SEEN /hpf 0-5 [facility] Urine clarityOrdered By: Dr. Dee on 09-16-2022 Clarity (U) Clear Clear [facility] Urine color determinationOrd ered By: Dr. Dee on 09-16-2022 Color (U) Yellow Yellow [facility] Urine glucose detectionOrder ed By: Dr. Dee on 09-16-2022 Glucose Ql (U) Normal mg/dl Normal [facility] Urine leukocyte esterase det ection by dipstickOrdered By: Dr. Dee on 09-16-2022 Leukocyte esterase Test strip Ql (U) Negative Negative [facility] Urine pHOrdered By: Dr. Lloyd joshi on 09-16-2022 pH (U) 7.0 [pH] 5.0 - 8.0 [facility] Urine sediment bacteria coun t by microscopy (number/high power field)Ordered By: Dr. Dee on 09-16-2022 Bacteria LM.HPF (Urine sed) [#/Area] 0 /[HPF] None Seen [facility] Urine specific gravity measu rementOrdered By: Dr. Dee on 09-16-2022 Specific gravity (U) [Rel density] 1.005 1.002-1.030 [facility] Urobilinogen Auto test strip Ql (U)Ordered By: Dr. Dee on 09-16-2022 Urobilinogen Ql (U) Normal mg/dl Normal [facility] pH measurementOrdered By: Dr Nikhil Dee on 09-16-2022 pH (Unsp spec) 7.39 [pH] 7.35-7.45 [facility] No Panel InformationOrdered By: Dr. Shaw on 09-15-2022 D-Dimer Quantitative (PE/DVT) 0.65 FEU/ug/m 0.27-0.49 [facility] Comment on above: D-Dimer ELEVATED (>0 .49): Additional studies and clinicalassessments are indicated to conclude diagnosis of:Deep Vein Thrombosis (DVT) or Pulmonary Embolism (PE)CRITICAL VALUE VERIFIED. CALLED TO SHELDON CHILEL09/15/22 Ildefonso Leal.RESULTS READ BACK BY SAME. Laboratory - Hematology and Cell countson 09-13-2022 HbA1c (Bld) [Mass fraction] 7.1 % [facility] - Drug toxicology Ordered By: Dr. Trejo on 07-07-2022 Amphetamines Ql (U) Negative <1000 ng/mL [facility] Benzodiazepines Ql (U) Negative < 200 ng/mL [facility] Cannabinoids Screen Ql (U) Negative < 50 ng/mL [facility] Cocaine Ql (U) Negative < 300 ng/mL [facility] Opiates Ql (U) Positive < 300 ng/mL [facility] No Panel InformationOrdered By: Dr. Trejo on 07-07-2022 MDMA (Ecstasy) Screen Negative < 500 ng/mL [facility] Miscellaneous Test See comment [facility] Comment on above: [id number] 6+OXYCODONE-B UND (ng/mL) DRUG RESULT SCREEN CUTOFF____ [...] 300 Oxymorphone Negative 300 TESTING PERFORMED AT [facility]. ORIGINAL REPORT ON FILE IN LAB CONTAINS ADDITIONAL TEST SITE INFORMATION. Urine Barbiturates Screen Negative < 200 ng/mL [facility] Urine Drug Screen Comment [facility] Comment on above: CONFIRMATORY TESTING FOR [...] TESTING MUST BE ORDERED SEPARATELY. USE TESTMNEMONIC: [facility] Urine Methadone Screen Negative < 300 ng/mL [facility] Urine phencyclidine (PCP) de tectionOrdered By: Dr. Trejo on 07-07-2022 Phencyclidine Ql (U) Negative < 25 ng/mL [facility] ERICA Telephone (ADNRE) FLEX WOOTEN ([id number]) 1960 F Date Time Provider Department 06/23/22 NICOLÁS AGGARWAL During your visit today, we recorded the following information about you: Mendy Adams RN 06/23/2022 8:51 AM Signed I left a message for Tessie at [employer] regarding their addendum request. 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] 05/19/2022 Diabetic neuropathy, painful (HCC) [E11.40] 05/19/2022 Acquired valgus deformity of left ankle [M21.07*05/19/2022 Encounter Status:Closed by MENDY ADAMS RN on 06/25/22 [facility] CNOVon 05-19-2022 CNOV Office Visit (ORAVON ) FLEX WOOTEN ([id number]) 1960 F Date Time Provider Department 05/19/22 [...] HISTORY Diagnosis Date DVT (deep venous thrombosis) ([facility]) 2013 post knee replacement Fibromyalgia Hemorrhage of gastrointestinal tract, unspecified Hemorrhage of rectum and anus Internal hemorrhoids without mention of complication Other forms of migraine Other unspecified back disorder Pulmonary embolism ([facility]) 2013 PAST SURGICAL HISTORY Procedure Laterality Date [...] 2009 left knee -- meniscus repair; Dr. Weller [facility] SIGMOIDOSCOPY FLX DX W/COLLJ SPEC BR/WA [...] Worsening Previous (more content not included)... Normal [facility] Laboratory - Hematology and Cell countson 05-19-2022 HbA1c (Bld) [Mass fraction] 7.5 % [facility] Work Phone: XR FOOT 3V AP/LAT/OBL [...] noted. IMPRESSION: Remote postoperative and degenerative changes. Avionics Safety Inspector: PSCB Transcribe Date/Time: May 19 2022 10:24A Dictated by : ARACELY COATES MD This examination was interpreted and the report reviewed and electronically signed by: ARACELY COATES MD on May 19 2022 10:25AM EST [id number] Normal [facility] XR FOOT GENERAL 3V AP/LAT/OB L LEFTon 05-19-2022 [facility] Absolute lymphocyte counton 01-31-2022 Lymphocytes Auto (Unsp spec) [#/Vol] 0.87 10*3/uL 0.83-4.51 [facility] Work Phone: Basophil percentageon 2021 Basophil percentage 0 SEEN /hpf [facility] Work Phone: Basophils/100 WBC (Bld) 0.4 % 0-1 [facility] Work Phone: Bilirubin [Mass/Vol] 0.30 mg/dL 0.20-1.00 [facility] Work Phone: Comment on above: For patients on eltr ombopag therapy, use of Dimension [place] TBIL is not recommended. Chloride [Moles/Vol] 103 mmol/L 98-107 [facility] Work Phone: [phone] Eosinophils/100 WBC (Bld) 0.0 % 0-5 [facility] Work Phone: Glucose [Mass/Vol] 545 mg/dL 74-106 [facility] Work Phone: Comment on above: Critical Result(s) C alled at: 00:43:30 01/31/2022 by: PERRY IGLESIAS TO RICA STEPHEN. Results read back by same.Glucose result greater than or equal to 200 mg/dLsuggests DIABETES MELLITUS per A.D.A. criteria. Neutrophils (Bld) [#/Vol] 7.0 10*3/uL 2.0-7.7 [facility] Work Phone: Neutrophils/100 WBC (Bld) 78.6 % 47-70 [facility] Work Phone: Potassium [Moles/Vol] 4.6 mmol/L 3.5-5.1 [facility] Work Phone: Comment on above: Moderate Hemolysis, Result may be falsely increased. Protein [Mass/Vol] 7.4 g/dL 6.4-8.2 [facility] Work Phone: Sodium [Moles/Vol] 135 mmol/L 136-145 [facility] Work Phone: WBC (Bld) [#/Vol] 8.9 10*3/uL 4.4-11.0 [facility] Work Phone: Bilirubin Test strip Ql (U)o n 01-31-2022 Bilirubin Ql (U) Negative Negative [facility] Work Phone: Blood erythrocytes count (nu mber/volume)on 01-31-2022 RBC (Bld) [#/Vol] 4.98 10*6/uL 4.2-5.4 [facility] Work Phone: Blood hemoglobin measurement (mass/volume)on 01-31-2022 Hemoglobin (Bld) [Mass/Vol] 13.5 g/dL 12.0-15.0 [facility] Work Phone: Blood lymphocytes/100 leukoc yteson 01-31-2022 Lymphocytes/100 WBC (Bld) 9.8 % 19-41 [facility] Work Phone: Blood monocytes/100 leukocyt eson 01-31-2022 Monocytes/100 WBC (Bld) 6.4 % 0-10 [facility] Work Phone: Blood platelet mean volumeon 01-31-2022 Platelet mean volume (Bld) [Entitic vol] 9.6 fL 6.2-12.0 [facility] Work Phone: Determination of erythrocyte mean corpuscular volume (MCV)on 01-31-2022 MCV (RBC) [Entitic vol] 85.7 fL 81-99 [facility] Work Phone: Glucose Glucometer (BldC) [M ass/Vol]on 01-31-2022 Glucose [Mass/Vol] 399 mg/dL 74-106 [facility] Work Phone: Comment on above: MANAGEMENT OF PATIEN T CARE PER NURSING PROTOCOL HCO3 (BldA) [Moles/Vol]on HCO3 (Bld) [Moles/Vol] 25 mmol/L 22-26 [facility] Work Phone: Hematocrit Auto (Bld) [Volum e fraction]on 01-31-2022 Hematocrit (Bld) [Volume fraction] 42.7 % 37-47 [facility] Work Phone: Ketones Test strip Ql (U)on 01-31-2022 Ketones Ql (U) Negative Negative [facility] Work Phone: Laboratory - Chemistry and C hemistry - challengeon 01-31-2022 CO2 [Moles/Vol] 26 mmol/L 23-33 [facility] Work Phone: ALP [Catalytic activity/Vol] 89 U/L 45-117 [facility] Work Phone: ALT [Catalytic activity/Vol] 44 U/L 13-56 [facility] Work Phone: CO2 [Moles/Vol] 26.0 mmol/L 21.0-32.0 [facility] Work Phone: Globulin (S) [Mass/Vol] 4.0 g/dL 2.2-4.2 [facility] Work Phone: Urea nitrogen/Creatinine [Mass ratio] 24.0 mg/mg 10-20 [facility] Work Phone: Laboratory - Hematology and Cell countson 01-31-2022 Erythrocyte distribution width (RBC) [Entitic vol] 46.8 fL 35.1-43.9 [facility] Work Phone: Erythrocyte distribution width (RBC) [Ratio] 14.9 % 11.6-14.6 [facility] Work Phone: Immature granulocytes/100 WBC (Bld) 4.800 % 0.0-0.9 [facility] Work Phone: Comment on above: IG% - Immature Granu locytes (promyelocytes, myelocytes and metamyelocytes) > 1% indicates that a LEFT SHIFT is Present. MCH (RBC) [Entitic mass] 27.1 pg 27.0-32.0 [facility] Work Phone: Nucleated RBC/100 WBC (Bld) [Ratio] 0 % 0-5 [facility] Work Phone: MCHC Auto (RBC) [Mass/Vol]on 01-31-2022 MCHC (RBC) [Mass/Vol] 31.6 g/dL 32-36 [facility] Work Phone: Mucus LM Ql (Urine sed)on Mucus Ql (Urine sed) 0 SEEN /hpf [facility] Work Phone: Nitrite Test strip Ql (U)on 01-31-2022 Nitrite Ql (U) Negative Negative [facility] Work Phone: No Panel Informationon 01-31 Bed Mix Venous Bld PCO2 at Pat Temp 43.6 mmHg 41-51 [facility] Work Phone: Blood Gas Specimen Type REJI [facility] Work Phone: Venous Blood Base Excess -1 mmol/L -1.0-3.5 [facility] Work Phone: Estimated Creatinine Clearance Calc 39.78 ml/min [facility] Work Phone: Estimated GFR (MDRD) Amer 56 mL/min >60 [facility] Work Phone: Comment on above: GFR Calc Estimated GFR (MDRD) Non-Af Amer 46 mL/min >60 [facility] Work Phone: Comment on above: Non- GFR Calc PO2 venouson 01-31-2022 Oxygen (BldV) [Partial pressure] 42 mm[Hg] 25-40 [facility] Work Phone: Platelets bldon 01-31-2022 Platelets (Bld) [#/Vol] 317 10*3/uL 150-450 [facility] Work Phone: Protein Test strip Ql (U)on 01-31-2022 Protein Ql (U) Negative Negative [facility] Work Phone: Serum or plasma acetone dread urement (mass/volume)on 01-31-2022 Acetone [Mass/Vol] Negative NEG [facility] Work Phone: Serum or plasma albumin dread urement (mass/volume)on 01-31-2022 Albumin [Mass/Vol] 3.4 g/dL 3.2-5.0 [facility] Work Phone: Serum or plasma albumin/glob ulin mass ratioon 01-31-2022 Albumin/Globulin [Mass ratio] 0.8 {ratio} 0.9-2.4 [facility] Work Phone: Serum or plasma calcium dread urement (mass/volume)on 01-31-2022 Calcium [Mass/Vol] 8.7 mg/dL 8.5-10.1 [facility] Work Phone: Serum or plasma creatinine m easurement (mass/volume)on 01-31-2022 Creatinine [Mass/Vol] 1.25 mg/dL 0.55-1.02 [facility] Work Phone: Comment on above: The validity of the calculated GFR & GFRAA in patients over 70 years has not been determined. Clinical correlation is essential. Serum or plasma urea nitroge n measurement (mass/volume)on 01-31-2022 Urea nitrogen [Mass/Vol] 30 mg/dL 7-18 [facility] Work Phone: Squamous epithelial cells de tection in urine sediment by light microscopyon 01-31-2022 Epithelial cells.squamous LM Ql (Urine sed) 0 SEEN /hpf [facility] Work Phone: Thin prep Papanicolaou smear with manual screeningon 01-31-2022 Thin prep Papanicolaou smear with manual screening 20 U/L 15-37 [facility] Work Phone: Comment on above: Moderate Hemolysis, Result may be falsely increased. Thin prep Papanicolaou smear with manual screening 6 5-15 [facility] Work Phone: Urine blood detectionon RBC Ql (U) Negative Negative [facility] Work Phone: RBC Ql (U) 0 SEEN /hpf [facility] Work Phone: Urine clarityon 01-31-2022 Clarity (U) Clear Clear [facility] Work Phone: Urine color determinationon 01-31-2022 Color (U) Straw Yellow [facility] Work Phone: Urine glucose detectionon Glucose Ql (U) 1000 mg/dl Normal [facility] Work Phone: Urine leukocyte esterase det ection by dipstickon 01-31-2022 Leukocyte esterase Test strip Ql (U) Negative Negative [facility] Work Phone: Urine pHon 01-31-2022 pH (U) 6.0 [pH] [facility] Work Phone: Urine sediment bacteria coun t by microscopy (number/high power field)on 01-31-2022 Bacteria LM.HPF (Urine sed) [#/Area] 0 /[HPF] None Seen [facility] Work Phone: Urine specific gravity measu rementon 01-31-2022 Specific gravity (U) [Rel density] 1.015 [facility] Work Phone: Urobilinogen Auto test strip Ql (U)on 01-31-2022 Urobilinogen Ql (U) Normal mg/dl Normal [facility] Work Phone: Vital signson 01-31-2022 Oxygen saturation in Blood 76 % 50-70 [facility] Work Phone: pH measurementon 01-31-2022 pH (Unsp spec) 7.36 [pH] 7.32-7.42 [facility] Work Phone: Absolute lymphocyte counton 01-25-2022 Lymphocytes Auto (Unsp spec) [#/Vol] 1.06 10*3/uL 0.83-4.51 [facility] Work Phone: Basophil percentageon 2021 Basophils/100 WBC (Bld) 0.7 % 0-1 [facility] Work Phone: Chloride [Moles/Vol] 104 mmol/L 98-107 [facility] Work Phone: Eosinophils/100 WBC (Bld) 2.9 % 0-5 [facility] Work Phone: Glucose [Mass/Vol] 166 mg/dL 74-106 [facility] Work Phone: Comment on above: Fasting Glucose resu lt greater than or equal to 126 mg/dL suggests DIABETES MELLITUS per A.D.A. criteria. Neutrophils (Bld) [#/Vol] 4.2 10*3/uL 2.0-7.7 [facility] Work Phone: [phone] Neutrophils/100 WBC (Bld) 68.9 % 47-70 [facility] Work Phone: Potassium [Moles/Vol] 4.1 mmol/L 3.5-5.1 [facility] Work Phone: Sodium [Moles/Vol] 139 mmol/L 136-145 [facility] Work Phone: WBC (Bld) [#/Vol] 6.1 10*3/uL 4.4-11.0 [facility] Work Phone: Blood erythrocytes count (nu mber/volume)on 01-25-2022 RBC (Bld) [#/Vol] 4.60 10*6/uL 4.2-5.4 [place] [facility] Work Phone: Blood hemoglobin measurement (mass/volume)on 01-25-2022 Hemoglobin (Bld) [Mass/Vol] 12.3 g/dL 12.0-15.0 [facility] Work Phone: Blood lymphocytes/100 leukoc yteson 01-25-2022 Lymphocytes/100 WBC (Bld) 17.3 % 19-41 [facility] Work Phone: Blood monocytes/100 leukocyt eson 01-25-2022 Monocytes/100 WBC (Bld) 9.9 % 0-10 [facility] Work Phone: Blood platelet mean volumeon 01-25-2022 Platelet mean volume (Bld) [Entitic vol] 9.2 fL 6.2-12.0 [facility] Work Phone: Determination of erythrocyte mean corpuscular volume (MCV)on 01-25-2022 MCV (RBC) [Entitic vol] 87.8 fL 81-99 [facility] Work Phone: Hematocrit Auto (Bld) [Volum e fraction]on 01-25-2022 Hematocrit (Bld) [Volume fraction] 40.4 % 37-47 [facility] Work Phone: Laboratory - Chemistry and C hemistry - challengeon 01-25-2022 CO2 [Moles/Vol] 31.0 mmol/L 21.0-32.0 [facility] Work Phone: Urea nitrogen/Creatinine [Mass ratio] 11.1 mg/mg 10-20 [facility] Work Phone: Laboratory - Hematology and Cell countson 01-25-2022 Erythrocyte distribution width (RBC) [Entitic vol] 50.0 fL 35.1-43.9 [facility] Work Phone: Erythrocyte distribution width (RBC) [Ratio] 15.7 % 11.6-14.6 [facility] Work Phone: Immature granulocytes/100 WBC (Bld) 0.300 % 0.0-0.9 [facility] Work Phone: Comment on above: IG% - Immature Granu locytes (promyelocytes, myelocytes and metamyelocytes) > 1% indicates that a LEFT SHIFT is Present. MCH (RBC) [Entitic mass] 26.7 pg 27.0-32.0 [facility] Work Phone: Nucleated RBC/100 WBC (Bld) [Ratio] 0 % 0-5 [facility] Work Phone: MCHC Auto (RBC) [Mass/Vol]on 01-25-2022 MCHC (RBC) [Mass/Vol] 30.4 g/dL 32-36 [facility] Work Phone: No Panel Informationon 01-25 D-Dimer Quantitative (PE/DVT) 0.85 FEU/ug/m 0.27-0.49 [facility] Work Phone: Comment on above: RESULTS CALLED TO LAVINIA RODRÍGUEZ RN 01/25/22 [id number] Rubina Chairez.REPORT READ BACK BY SAME.D-Dimer ELEVATED (>0.49): Additional studies and clinicalassessments are indicated to conclude diagnosis of:Deep Vein Thrombosis (DVT) or Pulmonary Embolism (PE) Estimated Creatinine Clearance Calc 61.39 ml/min [facility] Work Phone: Estimated GFR (MDRD) Amer 91 mL/min >60 [facility] Work Phone: Comment on above: GFR Calc Estimated GFR (MDRD) Non-Af Amer 75 mL/min >60 [facility] Work Phone: Comment on above: Non- GFR Calc Troponin I High Sensitivity < 3 pg/mL 3.0-54.0 [facility] Work Phone: Comment on above: Please Note: New Selene t Units and Gender Specific Reference Ranges. For more information see Policy Stat Procedure [place] High Sensitivity Troponin (TNIH) and attachments. SARS-CoV-2 & FLU Antigen (Rapid) SARS-CoV-2 (COVID 19) [facility] Work Phone: Platelets bldon 01-25-2022 Platelets (Bld) [#/Vol] 181 10*3/uL 150-450 [facility] Work Phone: Serum or plasma calcium dread urement (mass/volume)on 01-25-2022 Calcium [Mass/Vol] 8.5 mg/dL 8.5-10.1 [facility] Work Phone: Serum or plasma creatinine m easurement (mass/volume)on 01-25-2022 Creatinine [Mass/Vol] 0.81 mg/dL 0.55-1.02 [facility] Work Phone: Comment on above: The validity of the calculated GFR & GFRAA in patients over 70 years has not been determined. Clinical correlation is essential. Serum or plasma urea nitroge n measurement (mass/volume)on 01-25-2022 Urea nitrogen [Mass/Vol] 9 mg/dL 7-18 [facility] Work Phone: Thin prep Papanicolaou smear with manual screeningon 01-25-2022 Thin prep Papanicolaou smear with manual screening 4 5-15 [facility] Work Phone: Culture, urineon 11-12-2021 Bacteria identified Cx Nom (U) Presumptive Lactobacillus sp. [facility] Work Phone: Absolute lymphocyte counton 11-10-2021 Lymphocytes Auto (Unsp spec) [#/Vol] 1.61 10*3/uL 0.83-4.51 [facility] Work Phone: Basophil percentageon 2021 Basophils/100 WBC (Bld) 0.7 % 0-1 [facility] Work Phone: [phone] Chloride [Moles/Vol] 102 mmol/L 98-107 [facility] Work Phone: [phone] Eosinophils/100 WBC (Bld) 3.1 % 0-5 [facility] Work Phone: [phone] Glucose [Mass/Vol] 281 mg/dL 74-106 [facility] [place] Work Phone: [phone] Comment on above: Glucose result great er than or equal to 200 mg/dLsuggests DIABETES MELLITUS per A.D.A. criteria. Neutrophils (Bld) [#/Vol] 3.7 10*3/uL 2.0-7.7 [facility] Work Phone: Neutrophils/100 WBC (Bld) 60.3 % 47-70 [facility] Work Phone: [phone] Potassium [Moles/Vol] 4.1 mmol/L 3.5-5.1 [facility]: [phone] Sodium [Moles/Vol] 138 mmol/L 136-145 [facility] [place] Work Phone: [phone] WBC (Bld) [#/Vol] 6.1 10*3/uL 4.4-11.0 [facility] [place] Work Phone: Blood erythrocytes count (nu mber/volume)on 11-10-2021 RBC (Bld) [#/Vol] 4.46 10*6/uL 4.2-5.4 [facility] Work Phone: [phone] Blood hemoglobin measurement (mass/volume)on 11-10-2021 Hemoglobin (Bld) [Mass/Vol] 11.8 g/dL 12.0-15.0 [facility] Work Phone: [phone] Blood lymphocytes/100 leukoc yteson 11-10-2021 Lymphocytes/100 WBC (Bld) 26.3 % 19-41 [facility] Work Phone: Blood monocytes/100 leukocyt eson 11-10-2021 Monocytes/100 WBC (Bld) 9.1 % 0-10 [facility] Work Phone: Blood platelet mean volumeon 11-10-2021 Platelet mean volume (Bld) [Entitic vol] 9.2 fL 6.2-12.0 [facility] Work Phone: Determination of erythrocyte mean corpuscular volume (MCV)on 11-10-2021 MCV (RBC) [Entitic vol] 83.9 fL 81-99 [facility] Work Phone: Hematocrit Auto (Bld) [Volum e fraction]on 11-10-2021 Hematocrit (Bld) [Volume fraction] 37.4 % 37-47 [facility] Work Phone: Laboratory - Chemistry and C hemistry - challengeon 11-10-2021 Magnesium [Mass/Vol] 1.7 mg/dL 1.6-2.6 [facility] Work Phone: CO2 [Moles/Vol] 30.0 mmol/L 21.0-32.0 [facility] Work Phone: Urea nitrogen/Creatinine [Mass ratio] 14.9 mg/mg 10-20 [facility] Work Phone: Laboratory - Hematology and Cell countson 11-10-2021 Erythrocyte distribution width (RBC) [Entitic vol] 50.7 fL 35.1-43.9 [facility] Work Phone: Erythrocyte distribution width (RBC) [Ratio] 16.8 % 11.6-14.6 [facility] Work Phone: Immature granulocytes/100 WBC (Bld) 0.500 % 0.0-0.9 [facility] Work Phone: Comment on above: IG% - Immature Granu locytes (promyelocytes, myelocytes and metamyelocytes) > 1% indicates that a LEFT SHIFT is Present. MCH (RBC) [Entitic mass] 26.5 pg 27.0-32.0 [facility] Work Phone: Nucleated RBC/100 WBC (Bld) [Ratio] 0 % 0-5 [facility] Work Phone: MCHC Auto (RBC) [Mass/Vol]on 11-10-2021 MCHC (RBC) [Mass/Vol] 31.6 g/dL 32-36 [facility] Work Phone: No Panel Informationon 11-10 Thyroid Stimulating Hormone (TSH) 3.14 uIU/mL 0.358-3.74 [facility] Work Phone: Estimated GFR (MDRD) Amer 71 mL/min >60 [facility] Work Phone: Comment on above: GFR Calc Estimated GFR (MDRD) Non-Af Amer 59 mL/min >60 [facility] Work Phone: Comment on above: Non- GFR Calc Nasal Screen MRSA/MSSA [facility] Work Phone: Platelets bldon 11-10-2021 Platelets (Bld) [#/Vol] 261 10*3/uL 150-450 [facility] Work Phone: Serum or plasma albumin dread urement (mass/volume)on 11-10-2021 Albumin [Mass/Vol] 3.4 g/dL 3.2-5.0 [facility] [place] Work Phone: Serum or plasma calcium dread urement (mass/volume)on 11-10-2021 Calcium [Mass/Vol] 9.1 mg/dL 8.5-10.1 [facility] [place] Work Phone: Serum or plasma creatinine m easurement (mass/volume)on 11-10-2021 Creatinine [Mass/Vol] 1.01 mg/dL 0.55-1.02 [facility] Work Phone: Comment on above: The validity of the calculated GFR & GFRAA in patients over 70 years has not been determined. Clinical correlation is essential. Serum or plasma urea nitroge n measurement (mass/volume)on 11-10-2021 Urea nitrogen [Mass/Vol] 15 mg/dL 7-18 [facility] Work Phone: Thin prep Papanicolaou smear with manual screeningon 11-10-2021 Thin prep Papanicolaou smear with manual screening 6 5-15 [facility] Work Phone: Whole blood hemoglobin A1c/t otal hemoglobin ratio (mass fraction)on 11-10-2021 HbA1c (Bld) [Mass fraction] 8.0 % 3.8-5.6 [facility] Work Phone: Comment on above: Normal < 5.7 % Predi abetic 5.7 - 6.4 % Diabetic >or= 6.5 % Please note range changes. Glucose Glucometer (BldC) [M ass/Vol]on 09-25-2021 Glucose [Mass/Vol] 136 mg/dL 70-110 [facility] [place] Work Phone: Comment on above: MANAGEMENT OF PATIEN T CARE PER NURSING PROTOCOL Basophil percentageon 2020 WBC (Bld) [#/Vol] 7.1 10*3/uL 4.4-11.0 [facility] [place] Work Phone: Blood erythrocytes count (nu mber/volume)on 08-07-2021 RBC (Bld) [#/Vol] 4.56 10*6/uL 4.2-5.4 [facility] Work Phone: Blood hemoglobin measurement (mass/volume)on 08-07-2021 Hemoglobin (Bld) [Mass/Vol] 12.0 g/dL 12.0-15.0 [facility] Work Phone: Blood platelet mean volumeon 08-07-2021 Platelet mean volume (Bld) [Entitic vol] 9.9 fL 6.2-12.0 [facility] Work Phone: Determination of erythrocyte mean corpuscular volume (MCV)on 08-07-2021 MCV (RBC) [Entitic vol] 86.8 fL 81-99 [facility] Work Phone: Hematocrit Auto (Bld) [Volum e fraction]on 08-07-2021 Hematocrit (Bld) [Volume fraction] 39.6 % 37-47 [facility] Work Phone: Laboratory - Hematology and Cell countson 08-07-2021 Erythrocyte distribution width (RBC) [Entitic vol] 47.4 fL 35.1-43.9 [facility] Work Phone: Erythrocyte distribution width (RBC) [Ratio] 15.2 % 11.6-14.6 [facility] Work Phone: MCH (RBC) [Entitic mass] 26.3 pg 27.0-32.0 [facility] Work Phone: MCHC Auto (RBC) [Mass/Vol]on 08-07-2021 MCHC (RBC) [Mass/Vol] 30.3 g/dL 32-36 [facility] Work Phone: Platelets bldon 08-07-2021 Platelets (Bld) [#/Vol] 291 10*3/uL 150-450 [facility] Work Phone: Provider Note - ED [...] made to minimize errors. Minor errors in engineering associate may be present. Please call if questions.. [...] Last Updated: 21-May-2021 22:32 by Silvana Henderson (DIMPLE) References: 1. Data Referenced From Triage - ED 21-May-2021 20:35 Normal [facility] VAS LAB Venous Duplex Ultra sound DVTon 05-22-2021 VAS LAB Venous [place] [address] [phone], Vascular Lab Report Lower Venous Duplex Ultrasound Patient Name: FLEX Hernández Physician: [id number] Hector Vegas MD Study Date: 05/22/2021 Referring Physician: [id number] SILVANA HENDERSON MRN/PID: [id number] PCP: Accession/Order#: [id number] CC Report to: Date of : 1960 Technologist: Gladis Campbell RVT Gender: F Technologist 2: Admission Status: Outpatient Location Performed: [facility] Diagnosis/ICD: M79.605-Pain in left leg; M79.89-Left leg swelling Procedure/CPT: 54374 Peripheral venous duplex scan for DVT Limited-70577 Pertinent History: Leg pain and LE Edema. [...] Spontaneous/Phasic Peroneal Yes None PTV Yes None [id number] Hector Vegas MD Final Normal [facility] Triage - EDon 05-21-2021 Triage - ED [...] patient cognitively impaired not cognitively impaired Interventions: Francis Fall Interventions: MODERATE INTERVENTIONS: *Low Interventions Plus: [...] Updated: 21-May-2021 20:40 by Demetrio Cerda (SAM) [facility] BASIC METABOLIC PANELon - Anion gap [Moles/Vol] 13 mmol/L Normal 10 - 20 [facility] Comment on above: Performed By: #### B MP #### [address] [address] Calcium [Mass/Vol] 9.4 mg/dL Normal 8.6 - 10.3 [facility] Comment on above: Performed By: #### B MP #### [address] [address] Chloride [Moles/Vol] 96 mmol/L Low 98 - 107 [facility] Comment on above: Performed By: #### B MP #### [address] [address] Creatinine [Mass/Vol] 0.92 mg/dL Normal 0.50 - 1.05 [facility] Comment on above: Performed By: #### B MP #### [address] [address] GFR- AM. >60 Normal >60 [facility] Comment on above: Result Comment: CALC ULATIONS OF ESTIMATED GFR ARE PERFORMED USING THE MDRD STUDY EQUATION FOR THE IDMS-TRACEABLE CREATININE METHODS. CLIN CHEM 2007;53:766-72 Performed By: #### B MP #### [address] [address] GFR-NON AM. >60 Normal >60 [facility] Comment on above: Performed By: #### B MP #### [address] [address] Glucose [Mass/Vol] 342 mg/dL High 74 - 99 [facility] Comment on above: Performed By: #### B MP #### [address] [address] HCO3 (Bld) [Moles/Vol] 28 mmol/L Normal 21 - 32 [facility] Comment on above: Performed By: #### B MP #### [address] [address] Potassium [Moles/Vol] 4.8 mmol/L Normal 3.5 - 5.3 [facility] Comment on above: Performed By: #### B MP #### [address] [address] Sodium [Moles/Vol] 132 mmol/L Low 136 - 145 [facility] Comment on above: Performed By: #### B MP #### [address] [address] Urea nitrogen [Mass/Vol] 18 mg/dL Normal 6 - 23 [facility] Comment on above: Performed By: #### B MP #### [address] [address] GLUCOSE-POCTon 02-13-2021 Glucose [Mass/Vol] 332 mg/dL High 74 - 99 [facility] Comment on above: Performed By: #### G TAYE #### [address] [address] Provider Note - ED v2on 01-27 Provider [...] Alert and oriented x4, GCS 15 , 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 meds [...] SIGNS: T PRBP SpO2O2(LPM) %FiO2 Method 13-Feb-2021 03:12:00-8398207/73 92 room air, no respiratory support 13-Feb-2021 01:16:00-5552232/59 92 room air, no respiratory support 13-Feb-2021 00:01:00-36.71700501/76 95 room air, no respiratory support MEDICAL [...] Referenced From Triage - ED 13-Feb-2021 00:01 [facility] Risk Screen - Adult Emergenc yon 02-13-2021 [...] instruction; written material Cultural Considerationsnone Developmental Considerationsnone Church Considerationsnone Learning Assessment (Other Learner): Learning Assessment (Other Learner): Other learner availableno Pressure Injury/TB/Substance: Pressure Injury: Do you have a coughno Substance Use Current or Former Historynever: Cigarette/Tobacco, e-Cigarette/Vaping, Alcohol, Street Drugs Admission Risk Screen: Significant IndicatorsComplete CAGE: CAGE: Is this an injured patient at a Trauma Center ([facility]/[place]): no Electronic Signatures: Tigist Yoder (RN) (Signed 13-Feb-2021 00:07) Authored: Preferred Language, Advanced Directives, Family Violence Adult, Learning Assessment (Patient), Learning Assessment (Other Learner), Pressure Injury/TB/Substance, Pressure Injury, CAGE Last Updated: 13-Feb-2021 00:07 by Tigist Yoder (RN) [facility] Triage - EDon 02-13-2021 Triage - ED Chart Review: ARRIVAL INFORMATION Mode of Arrival: private vehicle CHIEF COMPLAINT FLEX TABARES is a Female patient with a chief complaint of hyperglycemia (Patient states, My sugar has been up the past 4-5 days. It's so high my meter wont register. I had a steroid shot today around 2pm. 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 BS at 6pm: 399, 7:30pm: HI, 8:30PM: HI, 9:15pm: 492, 1010pm: 409. In triage: 332). Triage Date/Time: 13-Feb-2021 00:01 ROSALBA: 3V Vital Signs: Temperature: 97.3F ( 36.2C) taken oral Blood Pressure: 125/76 Mean: Heart Rate: 64 Respiratory Rate: 18 Pulse Oximetry: 95% on room air, no respiratory support. [place] Coma Scale: Best Eye Response: (E4) spontaneous [...] Updated: 13-Feb-2021 00:06 by Tigist Yoder (SAM) [facility] OPERATIVE PROCEDURESon 02-10 OPERATIVE PROCEDURES [facility] OPERATIVE REPORT NAME ACCOUNT SEX AGE ADMIT DISCHARGE PT MED. RECORD# NUMBER DATE DATE TYPE FLEX WOOTEN [id number] F 59 02/08/20 02/08/20 2 E. [id number] ROOM: [facility] DATE OF : 1960 DICTATING PHYSICIAN: Pb Drummond DATE OF SURGERY: February 08, 2020 SURGEON: Pb Drummond MD DRESSMAKER HELPER: None. ANESTHESIOLOGIST: Daphney Velasquez MD ANESTHETIC: Local [...] a total Page 1 of 2 FLEX WOOTEN. Operative Report FLEX WarnerNikhil JE : 1960 of 9 mL of 2% [...] Pb Drummond MD 02/08/20 13:43 JOB #: [id number] Transcribed By: yogesh 02/09/20 07:13 Electronically signed by: E-SIGN DR. PB DRUMMOND M.D. 02/11/20 09:08 Page 2 of 2 FLEX WOOTEN. Operative Report Normal [facility] CNOVon 05-09-2019 CNOV Office Visit (RHBATH ) FLEX WOOTEN ([id number]) 1960 F Date Time Provider Department 05/09/19 10:00 AM JACKIE ROJAS During your visit today, we recorded the [...] for [address] Musa at [facility]. Takes oxycodone 2 times daily. Left knee [...] Diagnosis Date - DVT (deep venous thrombosis) ([facility]) 2014 post knee replacement - Fibromyalgia - Hemorrhage of gastrointestinal tract, unspecified - Hemorrhage of rectum and anus - Internal hemorrhoids without mention of complication - Other forms of migraine - Other unspecified back disorder - Pulmonary embolism ([facility]) 2014 PAST SURGICAL HISTORY Procedure Laterality Date - COLONOSCOP W/ OR W/O [facility] SPEC 2002 Colonoscopy - INTRATHECAL BLOCK - [...] left knee -- meniscus repair; Dr. Weller, [facility] - REMOVAL OF OVARY(S) - REMOVE [...] AJ 1:160, CK 272 Negative aside DNA, [employer] TRUCK [employer]IVER, SSA, SSB, rheumatoid factor, CCP, Acevedo Low [...] Jackie Rojas MD Referring Provider: JACKIE ROJAS [[id number]] Allergies As of Date: 05/09/2019 Noted Allergy [...] Status:Closed by JACKIE ROJAS MD on 05/09/19 [facility] PROGRESSon 05-09-2019 PROGRESS HNO ID: [id number] Author: Jackie Rojas Service: ? Author Type: [...] for [address] Musa at [facility]. Takes oxycodone 2 times daily. Left knee [...] Diagnosis Date - DVT (deep venous thrombosis) ([facility]) 2014 post knee replacement - Fibromyalgia - Hemorrhage of gastrointestinal tract, unspecified - Hemorrhage of rectum and anus - Internal hemorrhoids without mention of complication - Other forms of migraine - Other unspecified back disorder - Pulmonary embolism ([facility]) 2014 PAST SURGICAL HISTORY Procedure Laterality Date - COLONOSCOP W/ OR W/O [facility] SPEC 2002 Colonoscopy - INTRATHECAL BLOCK - [...] AJ 1:160, CK 272 Negative aside DNA, [employer] TRUCK [employer]IVER, SSA, SSB, rheumatoid factor, CCP, Acevedo Low [...] fail to improve. Jackie Rojas MD Normal [facility] AJ by IFA Screenon 04-12-20 19 AJ by IFA Screen SEE BELOW Normal [facility] Comment on above: Result Comment: AJ Positive AB NEGAT Normal range : negative at <1:80 serum dilution. AJ Titer 1:160 AB NEGAT AJ Pattern Homogeneous Performing Laboratory: [facility] [address] [place] [address] Performed By: #### R F1 #### [facility] [address] [place], [place] [address] CCP Antibody, IgGon 04-12-20 19 CCP Antibody, IgG <15 Normal <20 [facility] Comment on above: Result Comment: < 20 units: Negative 20-39 units: Weak Positive 40-59 units: Moderate Positive > 60 units: Strong Positive The following results were obtained with the [employer] Quotient QUANTA Lite CCP3 IgG VENESSA. Anti-CCP values obtained with different manufacturers' assay methods may not be used interchangeably. The magnitude of the reported IgG levels cannot be correlated to an endpoint titer. Performing Laboratory: [facility] [address] [place] [address] Performed By: #### R F1 #### [place] [id number] DS-DNA Abon 04-12-2019 DS-DNA Ab SEE BELOW Normal [facility] Comment on above: Result Comment: DNA Antibody w/ Conf. <12 <30 IU/mL Negative for ds DNA Antibodies Negative: <30 IU/mL Equivocal: 30-74 IU/mL Positive: >74 IU/mL Performing Laboratory: [facility] [address] [place] [address] Performed By: #### R F1 #### [place] [address] [employer] DRIVER Antibodyon 04-12-2019 [employer]IVER Antibody <0.2 Normal <1.0 [facility] Comment on above: Result Comment: Nega tive Negative: <1.0 AI Positive: >0.9 AI Performing Laboratory: [facility] [address] [place] [address] Performed By: #### R F1 #### [address] [address] Sjogren Antibodieson 019 Sjogren Antibodies SEE BELOW Normal [facility] Comment on above: Result Comment: SSA Antibody <0.2 <1.0 AI Negative Negative: <1.0 AI Positive: >0.9 AI SSB Antibody <0.2 <1.0 AI Negative Negative: <1.0 AI Positive: >0.9 AI Performing Laboratory: [facility] [address] [place] [address] Performed By: #### R F1 #### [facility] [address] [place], [place] [address] Acevedo Abs IgGon 04-12-2019 Acevedo Abs IgG SEE BELOW Normal [facility] Comment on above: Result Comment: Sm A ntibody <0.2 <1.0 AI Negative Negative: <1.0 AI Positive: >0.9 AI Performing Laboratory: [facility] [address] [place] [address] Performed By: #### R F1 #### [facility] [address] [place], [place] [address] Total 25-OH Vitamin Don 03-29 Total 25-OH Vitamin D 31.3 ng/mL Normal 30.0-100.0 [facility] Comment on above: Performed By: #### R F1 #### [address] [address] CNOVon 04-09-2019 CNOV Office Visit (RHBATH ) FLEX WOOTEN ([id number]) 1960 F Date Time Provider Department 04/09/19 [...] for [address] Musa at [facility]. Takes oxycodone 2 times daily. Left knee [...] Diagnosis Date - DVT (deep venous thrombosis) ([facility]) 2013 post knee replacement - Fibromyalgia - Hemorrhage of gastrointestinal tract, unspecified - Hemorrhage of rectum and anus - Internal hemorrhoids without mention of complication - Other forms of migraine - Other unspecified back disorder - Pulmonary embolism ([facility]) 2013 PAST SURGICAL HISTORY Procedure Laterality Date - COLONOSCOP W/ OR W/O [facility] SPEC 2002 Colonoscopy - INTRATHECAL BLOCK - [...] History Socioeconomic History Marital status: Spouse name: Ed Je Number of children: 2 Years of education: [...] file Gets together: Not on file Attends restorationism service: Not on file Active member of [...] SCREEN - DNA ANTIBODY DS BLD - [employer]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 - ACEVEDO IGG AB - [...] Jackie Rojas MD Referring Provider: RICA PADGETT [[id number]] Allergies As of Date: 04/09/2019 Noted Allergy Reaction NEURONTIN (GABAPENTIN) 07/14/2005 1 - Mental Status Change NIACIN 11/24/2006 2 - Rash 4 - Hives 9 - Itching Date Reviewed: 04/09/2019 Reviewed by: Talia Cat - Fully Assessed Reason for Visit: New Patient [172] Primary Visit Diagnosis:Pain in joint, multiple sites [M25.50] Other Visit Diagnosis:Vitamin D deficiency [E55.9] Order(s):AJ BY IFA SCREEN [SQANAIFS] Order #: [id number] FUTURE DNA ANTIBODY DS BLD [SQDNAAB] Order #: [id number] 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 [SQARNP] Order #: [id number] FUTURE ACEVEDO IGG AB [SQSMAB] Order #: [id number] FUTURE SJOGREN ABS SSA/SSB [SQXSSAB] Order #: [id number] FUTURE RHEUMATOID FACTOR BL [SQRF] Order #: [id number] FUTURE CCP ANTIBODY IGG [SQCCP] Order #: [id number] FUTURE CK CREATINE KINASE [SQCK] Order #: [id number] FUTURE VITAMIN D 25 HYDROXY [SQVITD] Order #: [id number] FUTURE FERRITIN BLD [SQFERR] Order #: [id number] FUTURE IRON + TIBC [SQIRON] Order #: [id number] FUTURE UA WITH CULTURE IF INDICATED [SQUACII] Order #: [id number] FUTURE CREATININE RANDOM UR [SQUCRR] Order #: [id number] FUTURE PROTEIN RANDOM UR [SQUTPR] Order #: [id number] FUTURE CBC + DIFF [SQCBCDIF] Order #: [id number] FUTURE COMP METABOLIC PANEL [SQCMP] Order #: [id number] FUTURE XR HAND GENERAL 3V PA/LAT/OBL LT [5946002] Order #: [id number] FUTURE XR HAND GENERAL 3V PA/LAT/OBL RT [9859377] Order #: [id number] FUTURE XR FOOT GENERAL 3V AP/LAT/OBL LT [5454585] Order #: [id number] FUTURE XR FOOT GENERAL 3V AP/LAT/OBL RT [1091828] Order #: [id number] FUTURE XR SACROILIAC JOINTS 2V AP PELVIS/FERGUESON [0038974] Order #: [id number] FUTURE XR LUMBAR LIMITED 2V AP/LAT [3487886] Order #: [id number] FUTURE Prescriptions as of 04/09/2019 Sig: ATENOLOL [...] by JACKIE ROJAS MD on 04/09/19 Normal [facility] CPKon 04-09-2019 CK [Catalytic activity/Vol] 272 U/L High 26-192 [facility] Comment on above: Performed By: #### C K #### [address] [address] Comprehensive Panelon 2018 ALP [Catalytic activity/Vol] 87 U/L Normal 45-117 [facility] Comment on above: Performed By: #### P 14 #### [address] [address] Bilirubin [Mass/Vol] 0.2 mg/dL Normal 0.2-1.0 [facility] Comment on above: Performed By: #### P 14 #### [address] [address] Protein [Mass/Vol] 7.0 g/dL Normal 6.4-8.2 [facility] Comment on above: Performed By: #### P 14 #### [facility] [address] [place], [place] [address] ALT [Catalytic activity/Vol] 43 U/L Normal 12-78 [facility] Comment on above: Performed By: #### P 14 #### [facility] [address] [place], [place] [address] Creatinine [Mass/Vol] 0.74 mg/dL Normal 0.51-0.95 [facility] Comment on above: Performed By: #### P 14 #### [facility] [address] [place], [place] [address] AST [Catalytic activity/Vol] 22 U/L Normal 15-37 [facility] Comment on above: Performed By: #### P 14 #### [facility] [address] [place], [place] [address] Albumin [Mass/Vol] 3.6 g/dL Normal 3.4-5.0 [facility] Comment on above: Performed By: #### P 14 #### [facility] [address] [place], [place] [address] Anion gap [Moles/Vol] 9 mmol/L Normal 8-16 [facility] Comment on above: Performed By: #### P 14 #### [facility] [address] [place], [place] [address] CO2 [Moles/Vol] 31 mmol/L Normal 21-32 [facility] Comment on above: Performed By: #### P 14 #### [facility] [address] [place], [place] [address] Urea nitrogen [Mass/Vol] 16 mg/dL Normal 7-18 [facility] Comment on above: Performed By: #### P 14 #### [facility] [address] [place], [place] [address] Calcium [Mass/Vol] 8.9 mg/dL Normal 8.5-10.1 [facility] Comment on above: Performed By: #### P 14 #### [facility] [address] [place], [place] [address] Glucose [Mass/Vol] 124 mg/dL High 70-99 [facility] Comment on above: Performed By: #### P 14 #### [facility] [address] [place], [place] [address] Chloride [Moles/Vol] 100 mmol/L Normal 98-107 [facility] Comment on above: Performed By: #### P 14 #### [facility] [address] [place], [place] [address] Potassium [Moles/Vol] 4.4 mmol/L Normal 3.5-5.1 [facility] Comment on above: Performed By: #### P 14 #### [facility] [address] [place] [address] Sodium [Moles/Vol] 136 mmol/L Normal 136-145 [facility] Comment on above: Performed By: #### P 14 #### [facility] [address] [place] [address] Creatinine,Urineon 9 Creatinine,Urine 71.9 mg/dL Normal [facility] Comment on above: Performed By: #### C REAU #### [facility] [address] [place] [address] Ferritinon 04-09-2019 Ferritin [Mass/Vol] 11.80 ng/mL Normal 8.00-252.00 [facility] Comment on above: Performed By: #### F ERR #### [place] [address] Hemogram/Diffon 04-09-2019 Abs Immature Grans 0.03 thou/cmm Normal 0.00-0.05 [facility] Comment on above: Performed By: #### C BCD1 #### [facility] [address] [place] [address] Abs Neut (ANC) 4.15 thou/cmm Normal 1.56-6.13 [facility] Comment on above: Performed By: #### C BCD1 #### [facility] [address] [place] [address] Abs. Baso 0.06 thou/cmm Normal 0.01-0.08 [facility] Comment on above: Performed By: #### C BCD1 #### [facility] [address] [place], [place] [address] Abs. Price 0.43 thou/cmm Normal 0.27-0.70 [facility] Comment on above: Performed By: #### C BCD1 #### [facility] [address] [place], [place] [address] Basophils/100 WBC (Bld) 0.9 % Normal [facility] Comment on above: Performed By: #### C BCD1 #### [facility] [address] [place], [place] [address] Eosinophils (Bld) [#/Vol] 0.18 thou/cmm Normal 0.00-0.31 [facility] Comment on above: Performed By: #### C BCD1 #### [facility] [address] [place] [address] Eosinophils/100 WBC (Bld) 2.6 % Normal [facility] Comment on above: Performed By: #### C BCD1 #### [facility] [address] [place] [address] Erythrocyte distribution width (RBC) [Ratio] 13.4 % Normal 11.7-14.4 [facility] Comment on above: Performed By: #### C BCD1 #### [facility] [address] [place], [place] [address] Hematocrit (Bld) [Volume fraction] 39.8 % Normal 34.1-44.9 [facility] Comment on above: Performed By: #### C BCD1 #### [facility] [address] [place], [place] [address] Hemoglobin (Bld) [Mass/Vol] 12.5 g/dL Normal 11.2-15.7 [facility] Comment on above: Performed By: #### C BCD1 #### [facility] [address] [place] [address] Immature Grans 0.40 % Normal [facility] Comment on above: Performed By: #### C BCD1 #### [facility] [address] [place] [address] Lymphocytes (Bld) [#/Vol] 2.09 thou/cmm Normal 1.18-3.74 [facility] Comment on above: Performed By: #### C BCD1 #### [facility] [address] [place], [place] [address] Lymphocytes/100 WBC (Bld) 30.1 % Normal [facility] Comment on above: Performed By: #### C BCD1 #### [facility] [address] [place], [place] [address] MCH (RBC) [Entitic mass] 26.7 pg Normal 25.6-32.2 [facility] Comment on above: Performed By: #### C BCD1 #### [facility] [address] [place], [place] [address] MCHC (RBC) [Mass/Vol] 31.4 % Low 31.6-34.8 [facility] Comment on above: Performed By: #### C BCD1 #### [facility] [address] [place] [address] MCV (RBC) [Entitic vol] 85.0 fL Normal 79.4-94.8 [facility] Comment on above: Performed By: #### C BCD1 #### [facility] [address] [place], [place] [address] Monocytes/100 WBC (Bld) 6.2 % Normal [facility] Comment on above: Performed By: #### C BCD1 #### [facility] [address] [place], [place] [address] Platelet mean volume (Bld) [Entitic vol] 9.8 fL Normal 9.4-12.3 [facility] Comment on above: Performed By: #### C BCD1 #### [facility] [address] [place], [place] [address] Platelets (Bld) [#/Vol] 204 thou/cmm Normal 182-369 [facility] Comment on above: Performed By: #### C BCD1 #### [address] [address] RBC (Bld) [#/Vol] 4.68 mil/cmm Normal 3.93-5.22 [facility] Comment on above: Performed By: #### C BCD1 #### [facility] [address] [place], [place] [address] RDW SD 41.3 fl Normal 36.4-46.3 [facility] Comment on above: Performed By: #### C BCD1 #### [facility] [address] [place], [place] [address] Seg Neutrophil 59.8 % Normal [facility] Comment on above: Performed By: #### C MANNYD1 #### [facility] [address] [place] [address] WBC (Bld) [#/Vol] 6.94 thou/cmm Normal 3.98-10.04 [facility] Comment on above: Performed By: #### C BCShayla #### [facility] [address] [place] [address] Iron % Saturationon 04-09-20 19 Iron % Saturation 17 % Low 20-55 [facility] Comment on above: Performed By: #### I ANAYELI #### [facility] [address] [place] [address] Iron Binding Cap. 369 ug/dL Normal 250-450 [facility] Comment on above: Performed By: #### I PHILOMENAS #### [place] [address] Iron Serum 61 ug/dL Normal 50-170 [facility] Comment on above: Performed By: #### I ANAYELI #### [place] [address] MDRD GFRon 04-09-2019 GFR/1.73 sq M predicted among non-blacks MDRD (S/P/Bld) [Vol rate/Area] mL/min/{1.73_m2} Normal >60mL/min/1 .73m2 [facility] Comment on above: Result Comment: If t he patient is , multiply the result by 1.210. Performed By: #### G FR #### [facility] [address] [place] [address] PROGRESSon 04-09-2019 PROGRESS HNO ID: [id number] Author: Jackie Rojas Service: ? Author Type: [...] for [address] Musa at [facility]. Takes oxycodone 2 times daily. Left knee [...] Diagnosis Date - DVT (deep venous thrombosis) ([facility]) 2013 post knee replacement - Fibromyalgia - Hemorrhage of gastrointestinal tract, unspecified - Hemorrhage of rectum and anus - Internal hemorrhoids without mention of complication - Other forms of migraine - Other unspecified back disorder - Pulmonary embolism ([facility]) 2014 PAST SURGICAL HISTORY Procedure Laterality Date - COLONOSCOP W/ OR W/O [facility] SPEC 2002 Colonoscopy - INTRATHECAL BLOCK - [...] file Gets together: Not on file Attends restorationism service: Not on file Active member of [...] SCREEN - DNA ANTIBODY DS BLD - 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 - ACEVEDO IGG AB - [...] discuss lab results. Jackie Rojas MD Normal [facility] Rheumatoid Factoron 04-09-20 19 Rheumatoid Factor < 10.0 Normal 0.0-15.0 [facility] Comment on above: Performed By: #### R F1 #### [place] [address] Urinalysis, reflexon 019 Reflex Comment see below Normal [facility] Comment on above: Result Comment: Refl ex to culture is not indicated based on established laboratory criteria. Performed By: #### U RIN #### [place] [address] Bacteria LM.HPF (Urine sed) [#/Area] NONE Normal None [facility] Comment on above: Performed By: #### U RIN #### [address] [place] [address] Ep Cells Urine 0.8 /hpf Normal 0.0-5.0 [facility] Comment on above: Performed By: #### U RIN #### [place] [address] Hyaline Cast 0.7 /lpf Normal 0.0-1.0 [facility] Comment on above: Performed By: #### U RIN #### [place] [address] RBC LM.HPF (Urine sed) [#/Area] 0.6 /[HPF] Normal 0.0-5.0 [facility] Comment on above: Performed By: #### U RIN #### [place] [address] WBC, reflex 0.90 /hpf Normal 0.00-5.00 [facility] Comment on above: Performed By: #### U RIN #### [place] [address] Appearance (U) CLEAR Normal [facility] Comment on above: Performed By: #### U RIN #### [place] [address] Bilirubin (U) [Mass/Vol] Negative Normal Negative [facility] Comment on above: Performed By: #### U RIN #### [place] [address] Color (U) YELLOW Normal [facility] Comment on above: Performed By: #### U RIN #### [place] [address] Glucose Ql (U) Negative Normal Negative [facility] Comment on above: Performed By: #### U RIN #### [place] [address] Hemoglobin,Urine Negative Normal Negative [facility] Comment on above: Performed By: #### U RIN #### [place] [address] Ketone Urine Negative Normal Negative [facility] Comment on above: Performed By: #### U RIN #### [facility] [address] [place] [address] Leukocyte esterase Test strip Ql (U) TRACE Abnormal Negative [facility] Comment on above: Performed By: #### U RIN #### [facility] [address] [place] [address] Nitrite reflex Negative Normal Negative [facility] Comment on above: Performed By: #### U RIN #### [facility] [address] [place] [address] pH (U) 5.0 [pH] Normal 5.0-8.0 [facility] Comment on above: Performed By: #### U RIN #### [facility] [address] [place] [address] Protein (U) [Mass/Vol] Negative Normal Negative [facility] Comment on above: Performed By: #### U RIN #### [facility] [address] [place] [address] Specific [place], Ur 1.017 Normal 1.005-1.030 [facility] Comment on above: Performed By: #### U RIN #### [facility] [address] [place] [address] Urobilinogen,Ur 0.2 EU/dL Normal 0.2-1.0 [facility] Comment on above: Performed By: #### U RIN #### [facility] [address] [place] [address] Urine Proteinon 04-09-2019 Protein Ql (U) < 5.0 Normal 0.0-11.9 [facility] Comment on above: Performed By: #### U P #### [facility] [address] [place] [address] XR FOOT 3V AP/LAT/OBL LTon 0 04-09-2019 [...] degenerative arthritis at the first MTP joints. Avionics Safety Inspector: JUANITA Transcribe Date/Time: Apr 12 2019 2:06P Dictated by : YANETH PATEL MD This examination was interpreted and the report reviewed and electronically signed by: YANETH PATEL MD on Apr 12 2019 2:08PM EST Normal [facility] XR FOOT 3V AP/LAT/OBL RTon 0 04-09-2019 [...] degenerative arthritis at the first MTP joints. Avionics Safety Inspector: [employer] Transcribe Date/Time: Apr 12 2019 2:06P Dictated by : YANETH PATEL MD This examination was interpreted and the report reviewed and electronically signed by: YANETH PATEL MD on Apr 12 2019 2:08PM EST Normal [facility] XR HAND 3V PA/LAT/OBL LTon 0 04-09-2019 [...] no abnormal calcifications. IMPRESSION: Within normal limits. Avionics Safety Inspector: JUANITA Transcribe Date/Time: Apr 12 2019 2:04P Dictated by : YANETH PATEL MD This examination was interpreted and the report reviewed and electronically signed by: YANETH PATEL MD on Apr 12 2019 2:06PM EST Normal [facility] XR HAND 3V PA/LAT/OBL RTon 0 [...] no abnormal calcifications. IMPRESSION: Within normal limits. Avionics Safety [facility] Transcribe Date/Time: Apr 12 2019 2:04P Dictated by : YANETH PATEL MD This examination was interpreted and the report reviewed and electronically signed by: YANETH PATEL MD on Apr 12 2019 2:06PM EST Normal [facility] XR LUMBAR 2V AP/LATon 2018 XR LUMBAR [...] IMPRESSION: Scoliosis, degenerative spondylosis, and postoperative changes. Avionics Safety Inspector: JUANITA Transcribe Date/Time: Apr 12 2019 2:09P Dictated by : YANETH PATEL MD This examination was interpreted and the report reviewed and electronically signed by: YANETH PATEL MD on Apr 12 2019 2:11PM EST Normal [facility] XR SI JTS 2V AP PELV/FERGUSO [...] degenerative changes at the right sacroiliac joint. Avionics Safety Inspector[facility] Transcribe Date/Time: Apr 12 2019 2:08P Dictated by : YANETH PATEL MD This examination was interpreted and the report reviewed and electronically signed by: YANETH PATEL MD on Apr 12 2019 2:09PM EST Normal [facility] Office Visit: Annualon 07-25 Dietary management education, guidance, and counseling (procedure) yes Invalid Interpretation Code [facility] Documentation of current medications (procedure) Done Invalid Interpretation Code [facility] Tobacco smoking status NHIS Never Invalid Interpretation Code [facility] Tobacco use CPHS Never smoker Invalid Interpretation Code [facility] Lab Report: Basic Metabolic Profile (BMP)on 12-09-2016 Anion gap 10 mmol/L Invalid Interpretation Code 5-15 [facility] BUN/Creatinine Ratio 18.5 RATIO Invalid Interpretation Code 10-20 [facility] Calcium 8.9 mg/dL Invalid Interpretation Code 8.5-10.1 [facility] Chloride 98 mmol/L Invalid Interpretation Code 98-107 [facility] CO2 32.0 mmol/L Invalid Interpretation Code 21.0-32.0 [facility] Creatinine 0.81 mg/dL Invalid Interpretation Code 0.55-1.02 [facility] eGFR (non-black) 77 mL/min/{1.73_m2} Invalid Interpretation Code >60 [facility] eGFR (non-black) 93 mL/min/{1.73_m2} Invalid Interpretation Code >60 [facility] Glucose mass conc 121 mg/dL High 70-110 [facility] Potassium molar conc 4.3 mmol/L Invalid Interpretation Code 3.5-5.1 [facility] Sodium 140 mmol/L Invalid Interpretation Code 136-145 [facility] Urea nitrogen 15 mg/dL Invalid Interpretation Code 7-18 [facility] Lab Report: Lipaseon 017 LIPASE 157 U/L Invalid Interpretation Code 73393 [facility] Lab Report: Liver Profileon 12-09-2016 Alanine aminotransferase (ALT) 58 U/L Invalid Interpretation Code 12-78 [facility] Albumin 3.7 g/dL Invalid Interpretation Code 3.4-5.0 [facility] Alkaline phosphatase (ALP) 87 U/L Invalid Interpretation Code 45-117 [facility] Aspartate aminotransferase (AST) 37 U/L Invalid Interpretation Code 15-37 [facility] Bilirubin (direct) 0.07 mg/dL Invalid Interpretation Code 0.00-0.30 [facility] Bilirubin (total) 0.30 mg/dL Invalid Interpretation Code 0.20-1.00 [facility] Globulin 3.5 g/dL Invalid Interpretation Code 2.3-3.5 [facility] Protein 7.2 g/dL Invalid Interpretation Code 6.4-8.2 [facility] Office Visit: RUQ pain, dila mary anne CBD, no GS on U/Son 12-09-2016 Fall risk assessment No Invalid Interpretation Code [facility] Office Visit: RUQ pain, dila mary anne CBD, no GS on U/Son 08-29-2015 Breast Mammogram screening Normal Bilateral Invalid Interpretation Code [facility] General categories [Interpretation] of Cervical or vaginal smear or scraping by Cyto stain Normal Invalid Interpretation Code [facility] No Panel Informationon 03-04 [facility] Vital Signs Date Time Vital Sign Value Performing Clinician Facility 09-06-2023 13:50-0500 Body temperature 97 [degF] Renita Thomae DO Work Phone: [facility] 09-06-2023 13:50-0500 Diastolic blood pressure 62 mm[Hg] Ernita Thomae DO Work Phone: [facility] 09-06-2023 13:50-0500 Heart rate 59 /min Renita Thomae DO Work Phone: [facility] 09-06-2023 13:50-0500 Respiratory rate 16 /min Renita Thomae DO Work Phone: [facility] 09-06-2023 13:50-0500 SaO2% (BldA) [Mass fraction] 94 % Renita Thomae DO Work Phone: [facility] 09-06-2023 13:50-0500 Systolic blood pressure 111 mm[Hg] Renita Thomae DO Work Phone: [facility] 02-24-2023 15:16-0400 Body temperature 97.7 [degF] DR PJ MAHNOEY MD [facility] 02-24-2023 15:16-0400 Diastolic Blood Pressure Non-Invasive [address] PJ MAHONEY MD [facility] 02-24-2023 15:16-0400 Heart rate 66 /min DR PJ MAHONEY MD [facility] 02-24-2023 15:16-0400 Reason For Taking VItal Signs DR PJ MAHONEY MD [facility] 02-24-2023 15:16-0400 Respiratory rate 16 /min DR PJ MAHONEY MD [facility] 02-24-2023 15:16-0400 Systolic Blood Pressure Non-Invasive [address] PJ MAHONEY MD [facility] 02-24-2023 11:13-0400 Body temperature 98.42 [degF] DR PJ MAHONEY MD [facility] 02-24-2023 11:13-0400 Diastolic Blood Pressure Non-Invasive [address] PJ MAHONEY MD [facility] 02-24-2023 11:13-0400 Heart rate 71 /min DR PJ MAHONEY MD [facility] 02-24-2023 11:13-0400 Reason For Taking VItal Signs DR PJ MAHONEY MD [facility] 02-24-2023 11:13-0400 Respiratory rate 16 /min DR PJ MAHONEY MD [facility] 02-24-2023 11:13-0400 Systolic Blood Pressure Non-Invasive [address] PJ MAHONEY MD [facility] 02-24-2023 09:07-0400 Heart rate 84 /min DR PJ MAHONEY MD [facility] 02-24-2023 08:58-0400 Diastolic Blood Pressure Non-Invasive [address] PJ MAHONEY MD [facility] 02-24-2023 08:58-0400 Systolic Blood Pressure Non-Invasive [address] PJ MAHONEY MD [facility] 02-24-2023 08:12-0400 Body temperature 97.88 [degF] DR PJ MAHONEY MD [facility] 02-24-2023 08:12-0400 Heart rate 74 /min DR PJ MAHONEY MD [facility] 02-24-2023 08:12-0400 Reason For Taking VItal Signs DR PJ MAHONEY MD [facility] 02-24-2023 08:12-0400 Respiratory rate 18 /min DR PJ MAHONEY MD [facility] 02-23-2023 22:43-0400 Heart rate 60 /min DR PJ MAHONEY MD [facility] 02-23-2023 20:04-0400 Heart rate 64 /min DR PJ MAHONEY MD [facility] 02-23-2023 14:32-0400 Heart rate 82 /min DR PJ MAHONEY MD [facility] 02-23-2023 11:40-0400 Heart rate 70 /min DR PJ MAHONEY MD [facility] 02-22-2023 14:40-0400 Body height 162.[address] PJ MAHONEY MD [facility] 02-22-2023 14:40-0400 Body weight [address] PJ MAHONEY MD [facility] 02-22-2023 14:40-0400 Body weight 41.61 kg/m2 DR PJ MAHONEY MD [facility] 02-22-2023 13:15-0400 Body temperature 96.26 [degF] DR PJ MAHONEY MD [facility] 02-22-2023 12:04-0400 Body temperature 97.7 [degF] DR PJ MAHONEY MD [facility] 02-22-2023 12:00-0400 Respiratory Rate - Anes 3 br/min DR PJ MAHONEY MD [facility] 02-22-2023 11:55-0400 Respiratory Rate - Anes 26 br/min DR PJ MAHONEY MD [facility] 02-22-2023 11:50-0400 Body temperature 96.84 [degF] DR PJ MAHONEY MD [facility] 02-22-2023 11:50-0400 Respiratory Rate - Anes 23 br/min DR PJ MAHONEY MD [facility] 02-22-2023 11:45-0400 Body temperature 96.85 [degF] DR PJ MAHONEY MD [facility] 02-22-2023 11:40-0400 Body temperature 96.89 [degF] DR PJ MAHONEY MD [facility] 02-22-2023 09:31-0400 Body height 162.[address] PJ MAHONEY MD [facility] 02-22-2023 09:31-0400 Body temperature 98.42 [degF] DR PJ MAHONEY MD [facility] 02-22-2023 09:31-0400 Body weight [address] PJ MAHONEY MD [facility] 02-03-2023 13:58-0400 Blood Pressure Cuff Size DR PJ MAHONEY MD [facility] 02-03-2023 13:58-[address] PJ MAHONEY MD [facility] 02-03-2023 13:58-[address] PJ MAHONEY MD [facility] 02-03-2023 13:58-0400 Body height 162.[address] PJ MAHONEY MD [facility] 02-03-2023 13:58-0400 Body weight [address] PJ MAHONEY MD [facility] 02-03-2023 13:58-0400 Body weight 41.61 kg/m2 DR PJ MAHONEY MD [facility] 02-03-2023 13:58-0400 Diastolic Blood Pressure Non-Invasive [address] PJ MAHONEY MD [facility] 02-03-2023 13:58-0400 Heart rate 73 /min DR PJ MAHONEY MD [facility] 02-03-2023 13:58-0400 Systolic Blood Pressure Non-Invasive [address] PJ MAHONEY MD [facility] 09-17-2022 18:10-0500 Body temperature 98 [degF] Dr. Rica Padgett Work Phone: [facility] 09-17-2022 18:10-0500 Diastolic blood pressure 65 mm[Hg] Dr. Rica Padgett Work Phone: [facility] 09-17-2022 18:10-0500 Heart rate 75 /min Dr. Rica Padgett Work Phone: [facility] 09-17-2022 18:10-0500 Respiratory rate 16 /min Dr. Rica Padgett Work Phone: [facility] 09-17-2022 18:10-0500 SaO2% (BldA) [Mass fraction] 901 % Dr. Rica Padgett Work Phone: [facility] 09-17-2022 18:10-0500 Systolic blood pressure 119 mm[Hg] Dr. Rica Padgett Work Phone: [facility] 09-17-2022 11:45-0500 Body height 162.[address] Rica Padgett Work Phone: [facility] 09-17-2022 11:45-0500 Body weight 121.[address] Rica Padgett Work Phone: [facility] 09-16-2022 19:21-0500 Inhaled oxygen flow rate 2 L/min Dr. Rica Padgett Work Phone: [facility] 09-16-2022 19:15-0500 Body mass index (BMI) [Ratio] 46.1 kg/m2 Dr. Rica Padgett Work Phone: [facility] 09-13-2022 10:21-0500 Body mass index (BMI) [Ratio] 42.7 kg/m2 Dr. Rica Padgett Work Phone: [facility] 09-13-2022 10:21-0500 Body temperature 95.4 [degF] Dr. Rica Padgett Work Phone: [facility] 09-13-2022 10:21-0500 Body weight 116.[address] Rica Padgett Work Phone: [facility] 09-13-2022 10:21-0500 Diastolic blood pressure 80 mm[Hg] Dr. Rica Padgett Work Phone: [facility] 09-13-2022 10:21-0500 Heart rate 84 /min Dr. Rica Padgett Work Phone: [facility] 09-13-2022 10:21-0500 Respiratory rate 20 /min Dr. Rica Padgett Work Phone: [facility] 09-13-2022 10:21-0500 SaO2% (BldA) [Mass fraction] 90 % Dr. Rica Padgett Work Phone: [facility] 09-13-2022 10:21-0500 Systolic blood pressure 137 mm[Hg] Dr. Rica Padgett Work Phone: [facility] 05-19-2022 14:14-0400 Body temperature 95.3 [degF] Dr. Rica Padgett Work Phone: [facility] Work Phone: 05-19-2022 14:14-0400 Diastolic blood pressure 90 mm[Hg] Dr. Rica Padgett Work Phone: [facility] Work Phone: 05-19-2022 14:14-0400 Heart rate 81 /min Dr. Rica Padgett Work Phone: [facility] Work Phone: 05-19-2022 14:14-0400 Respiratory rate 20 /min Dr. Rica Padgett Work Phone: [facility] Work Phone: 05-19-2022 14:14-0400 SaO2% (BldA) [Mass fraction] 91 % Dr. Rica Padgett Work Phone: [facility] Work Phone: 05-19-2022 14:14-0400 Systolic blood pressure 156 mm[Hg] Dr. Rica Padgett Work Phone: [facility] Work Phone: 03-29-2022 09:18-0400 Body mass index (BMI) [Ratio] 42.9 kg/m2 Dr. Rica Padgett Work Phone: [facility] Work Phone: 03-29-2022 09:18-0400 Body temperature 96.3 [degF] Dr. Rica Padgett Work Phone: [facility] Work Phone: 03-29-2022 09:18-0400 Body weight 117.[address] Rica Padgett Work Phone: [facility] Work Phone: 03-29-2022 09:18-0400 Diastolic blood pressure 80 mm[Hg] Dr. Rica Padgett Work Phone: [facility] Work Phone: 03-29-2022 09:18-0400 Heart rate 80 /min Dr. Rica Padgett Work Phone: [facility] Work Phone: 03-29-2022 09:18-0400 Respiratory rate 20 /min Dr. Rica Padgett Work Phone: [facility] Work Phone: 03-29-2022 09:18-0400 SaO2% (BldA) [Mass fraction] 95 % Dr. Rica Padgett Work Phone: [facility] Work Phone: 03-29-2022 09:18-0400 Systolic blood pressure 162 mm[Hg] Dr. Rica Padgett Work Phone: [facility] Work Phone: 01-31-2022 03:58-0400 Diastolic blood pressure 82 mm[Hg] Dr. Rica Padgett Work Phone: [facility] Work Phone: 01-31-2022 03:58-0400 Heart rate 53 /min Dr. Rica Padgett Work Phone: [facility] Work Phone: 01-31-2022 03:58-0400 Respiratory rate 16 /min Dr. Rica Padgett Work Phone: [facility] Work Phone: 01-31-2022 03:58-0400 SaO2% (BldA) [Mass fraction] 98 % Dr. Rica Padgett Work Phone: [facility] Work Phone: 01-31-2022 03:58-0400 Systolic blood pressure 114 mm[Hg] Dr. Rica Padgett Work Phone: [facility] Work Phone: 01-30-2022 23:11-0400 Body height 162.[address] Rica Padgett Work Phone: [facility] Work Phone: 01-30-2022 23:11-0400 Body mass index (BMI) [Ratio] 42 kg/m2 Dr. Rica Padgett Work Phone: [facility] Work Phone: 01-30-2022 23:11-0400 Body temperature 97.9 [degF] Dr. Rica Padgett Work Phone: [facility] Work Phone: 01-30-2022 23:11-0400 Body weight 111.[address] Rica Padgett Work Phone: [facility] Work Phone: 01-25-2022 15:13-0400 Diastolic blood pressure 89 mm[Hg] Dr. Rica Padgett Work Phone: [facility] Work Phone: 01-25-2022 15:13-0400 Heart rate 78 /min Dr. Rica Padgett Work Phone: [facility] Work Phone: 01-25-2022 15:13-0400 Respiratory rate 18 /min Dr. Rica Padgett Work Phone: [facility] Work Phone: 01-25-2022 15:13-0400 SaO2% (BldA) [Mass fraction] 97 % Dr. Rica Padgett Work Phone: [facility] Work Phone: 01-25-2022 15:13-0400 Systolic blood pressure 143 mm[Hg] Dr. Rica Padgett Work Phone: [facility] Work Phone: 01-25-2022 12:56-0400 Body height 162.[address] Rica Padgett Work Phone: [facility] Work Phone: 01-25-2022 12:56-0400 Body mass index (BMI) [Ratio] 42.9 kg/m2 Dr. Rica Padgett Work Phone: [facility] Work Phone: 01-25-2022 12:56-0400 Body temperature 98.2 [degF] Dr. Rica Padgett Work Phone: [facility] Work Phone: 01-25-2022 12:56-0400 Body weight 113.[address] Rica Padgett Work Phone: [facility] Work Phone: 09-25-2021 14:30-0500 Body temperature 98.5 [degF] Dr. Rica Padgett Work Phone: [facility] Work Phone: 09-25-2021 14:30-0500 Diastolic blood pressure 78 mm[Hg] Dr. Rica Padgett Work Phone: [facility] Work Phone: 09-25-2021 14:30-0500 Heart rate 68 /min Dr. Rica Padgett Work Phone: [facility] Work Phone: 09-25-2021 14:30-0500 Respiratory rate 16 /min Dr. Rica Padgett Work Phone: [facility] Work Phone: 09-25-2021 14:30-0500 SaO2% (BldA) [Mass fraction] 93 % Dr. Rica Padgett Work Phone: [facility] Work Phone: 09-25-2021 14:30-0500 Systolic blood pressure 144 mm[Hg] Dr. Rica Padgett Work Phone: [facility] Work Phone: 09-25-2021 09:44-0500 Body height 162.[address] Rica Padgett Work Phone: [facility] Work Phone: 09-25-2021 09:44-0500 Body mass index (BMI) [Ratio] 42.9 kg/m2 Dr. Rica Padgett Work Phone: [facility] Work Phone: 09-25-2021 09:44-0500 Body weight 113.[address] Rica Padgett Work Phone: [facility] Work Phone: 05-22-2021 01:30-0400 Diastolic blood pressure 66 mm[Hg] Rica Padgett Other Phone: [facility] 05-22-2021 01:30-0400 Heart rate 72 /min Rica Padgett Other Phone: [facility] 05-22-2021 01:30-0400 Respiratory rate 16 /min Rica Padgett Other Phone: [facility] 05-22-2021 01:30-0400 SaO2% (BldA) [Mass fraction] 96 % Rica Malys Other Phone: [facility] 05-22-2021 01:30-0400 Systolic blood pressure 138 mm[Hg] Rica Malys Other Phone: [facility] 05-21-2021 22:35-0400 Body height 162.5 cm Rica Malys Other Phone: [facility] 05-21-2021 22:35-0400 Body temperature 97.16 [degF] Rica Malys Other Phone: [facility] 05-21-2021 22:35-0400 Body weight 109.3 kg Rica Malys Other Phone: [facility] 02-13-2021 05:12-0400 Diastolic blood pressure 73 mm[Hg] Rica Malys Other Phone: [facility] 02-13-2021 05:12-0400 Heart rate 55 /min Rica Malys Other Phone: [facility] 02-13-2021 05:12-0400 Respiratory rate 18 /min Rica Malys Other Phone: [facility] 02-13-2021 05:12-0400 SaO2% (BldA) [Mass fraction] 92 % Rica Malys Other Phone: [facility] 02-13-2021 05:12-0400 Systolic blood pressure 143 mm[Hg] Rica Malys Other Phone: [facility] 02-13-2021 02:01-0400 Body temperature 97.16 [degF] Rica Malys Other Phone: [facility] 07-25-2017 14:03-0500 BMI (Body Mass Index) 39.79 kg/m2 Azra Gee NP [facility] 07-25-2017 14:03-0500 BP Diastolic 78 mm[Hg] Azra Gee NP [facility] 07-25-2017 14:03-0500 BP Systolic 128 mm[Hg] Azra Gee POST GRADUATE INTERN [facility] 07-25-2017 14:03-0500 Height 161.93 cm Azra Marlen POST GRADUATE INTERN [facility] 07-25-2017 14:03-0500 Weight 104.33 kg Azra Gee POST GRADUATE INTERN [facility] 12-09-2016 11:09-0400 Body Temperature 98 [degF] Azra Gee POST GRADUATE INTERN [facility] 12-09-2016 11:09-0400 BSA (Body Surface Area) 2.11 m2 Azra Gee POST GRADUATE INTERN [facility] 12-09-2016 11:09-0400 Pulse (Heart Rate) 86 /min Azra Gee POST GRADUATE INTERN [facility] 12-09-2016 11:09-0400 Respiratory Rate 18 /min Azra Gee POST GRADUATE INTERN [facility] Encounters Encounter Date Encounter Type Care Provider Facility Start: 03-11-2025 End: 03-11-2025 ambulatory Rica Malys Facility:[facility] Start: 02-18-2025 ambulatory Marissa Joseph Facility :[facility] Start: 02-09-2025 End: 02-09-[facility] Start: 02-04-2025 End: 02-04-2025 [facility] Start: 01-07-2025 End: 01-07-2025 [facility] Start: 01-03-2025 End: 01-03-2025 [facility] Start: 11-29-2024 ambulatory Rica Malys [facility] Start: 11-29-2024 End: 11-29-2024 [facility] Start: 11-20-2024 End: 11-20-2024 [facility] Start: 11-19-2024 End: 11-19-2024 ambulatory Marissa Joseph Facility:[facility] Start: 10-15-2024 End: 10-15-2024 [facility] Start: 10-12-2024 End: 10-12-2024 Emergency department patient visit Rica Malys Facility:[facility] Start: 10-08-2024 End: 10-08-2024 ambulatory Marissa Joseph Facility:[facility] Start: 09-03-2024 End: 09-03-2024 ambulatory Rica Malys Facility:[facility] Start: 07-27-2024 End: 07-28-2024 ambulatory Tre Anderson Facility:[facility] Start: 07-13-2024 End: 07-13-2024 ambulatory Martin Trejo Facility:[facility] Start: 06-06-2024 End: 06-06-2024 ambulatory Marissa Joseph Facility:[facility] Start: 06-01-2024 End: 06-01-2024 ambulatory Rica Malys Facility:[facility] Start: 05-14-2024 ambulatory Marissa Joseph Facility [facility] Start: 05-07-2024 End: 05-07-2024 ambulatory Rica Malys Facility:[facility] Start: 04-02-2024 End: 04-02-2024 ambulatory Marissa Joseph [facility] Start: 11-03-2023 Telephone encounter Yovanny Rogers i, MD Work Phone: [facility] Comment on above: Referral (Confirm re ceipt of referral faxed 11/01/23) Start: 09-06-2023 End: 09-07-2023 ambulatory RENITA MIJARES [facility] Start: 09-06-2023 End: 09-06-2023 Subsequent hospital visit by physician Renita Mijares DO Work Phone: [facility] Comment on above: Diarrhea, unspecifie d type (Primary Dx) Start: 02-22-2023 End: 02-24-2023 ambulatory PJ MAHONEY Facility:[facility] Start: 02-22-2023 End: 02-24-[address] PJ MAHONEY MD [facility] Start: 02-03-2023 End: 02-04-2023 ambulatory PJ MAHONEY Facility:[facility] Start: 02-03-2023 End: 02-04-2023 ambulatory PJ MAHONEY Facility:[facility] Start: 02-03-2023 End: 02-03-[address] PJ MAHONEY MD [facility] Start: 02-03-2023 End: 02-03-[address] PJ MAHONEY MD [facility] Start: 10-06-20[address]-Myke Yoonkassandratiti Work Phone: [facility] Comment on above: Page Out Start: 09-27-2022 Orders Only Nicolás Swenson Work Phone: Orthopaedics Comment on above: 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 Rica Padgett Work Phone: [facility] Work Phone: Start: 09-20-2022 End: 09-20-[address] Rica Padgett Work Phone: [facility] Start: 09-17-2022 Non-patient / Non-visit Dr. Angela Padgett Work Phone: [facility] Start: 09-17-2022 Non-patient / Non-visit Dr. Angela Padgett Work Phone: [facility] Start: 09-16-2022 Non-patient / Non-visit Dr. Angela Padgett Work Phone: [facility] Start: 09-16-2022 End: 09-17-2022 Evaluation and management of inpatient Dr. Rica Padgett Work Phone: [facility] Start: 09-15-2022 End: 01-18-[address] Rica Padgett Work Phone: [facility] Work Phone: Start: 09-15-2022 End: 09-15-[address] Rica Padgett Work Phone: [facility] Start: 09-13-2022 End: 09-13-[address] Rica Padgett Work Phone: [facility] Endocrinology Start: 07-07-2022 End: 07-07-[address] Rica Padgett Work Phone: [facility] Work Phone: Start: 07-07-2022 End: 07-07-[address] Rica Padgett Work Phone: [facility] Start: 06-23-2022 Telephone encounter Nicolás velazquez MD Work Phone: Orthopaedics Comment on above: Question Start: 05-19-2022 End: 05-19-[address] Rica Padgett Work Phone: [facility] Endocr[facility] Start: 05-19-2022 End: 05-19-2022 ambulatory NICOLÁS AGGARWAL Facility:[facility] Start: 05-19-2022 End: 05-19-2022 Patient encounter procedure Nicolás Aggarwal MD Work Phone: Orthopaedics Comment on above: Pes planus of left f oot (Primary Dx); Primary osteoarthritis of left foot; Diabetic neuropathy, painful (HCC); Acquired valgus deformity of left ankle Start: 05-19-2022 End: 05-19-2022 Subsequent hospital visit by physician Mehdi Valverde [facility] Work Phone: Radiology Comment on above: Pain [R52] Start: 03-29-2022 End: 03-29-[address] Rica Padgett Work Phone: [facility] Endocrinology Start: 01-30-2022 End: 01-31-2022 Emergency department patient visit Dr. Rica Padgett Work Phone: [facility] Start: 01-25-2022 End: 01-25-2022 Emergency department patient visit Dr. Rica Padgett Work Phone: [facility] Start: 11-12-2021 End: 11-12-[address] Rica Padgett Work Phone: [facility] Start: 11-11-2021 End: 11-11-[address] Rica Padgett Work Phone: [facility] Start: 11-10-2021 End: 11-10-[address] Rica Padgett Work Phone: [facility] Start: 11-10-2021 Non-patient / Non-visit Dr. Angela Padgett Work Phone: [facility] Start: 09-25-2021 End: 09-25-2021 Admission to same day surgery center Dr. Rica Padgett Work Phone: [facility] Start: 08-07-[address] Rica Padgett Work Phone: [facility] Start: 05-21-2021 End: 05-22-2021 Emergency department patient visit Silvana Henderson [facility] Emergency 11 Start: 02-13-2021 End: 02-13-2021 Emergency department patient visit Jesus Amezquita [facility] Emergency 11 Start: 02-08-2020 End: 02-08-2020 Patient encounter procedure PB DRUMMOND [facility] Start: 02-07-2015 End: 02-07-2015 Telephone encounter Azra Gee Work Phone: OB/Gynecology Comment on above: Yearly Exam With Jermaine mogram Procedures Date Procedure Procedure Detail Performing Clinician Start: 09-06-2023 DISCHARGE PATIENT RENITA MIJARES Start: 09-06-2023 PLACE IN OUTPATIENT/HOSPITAL AMBULATORY SURGERY RENITA MIJARES Start: 09-06-2023 PULSE OXIMETRY, SPOT DA LE MARYANA Start: 09-06-2023 Colon ca scrn not hi rsk ind Renita Mijares DO Work Phone: Start: 09-06-2023 PULSE OXIMETRY, SPOT Da le R Maryana DO Work Phone: Start: 09-06-2023 Colonoscopy Renita hernandes DO Work Phone: Start: 02-22-[address] PJ MAHONEY MD Comment on above: ROBOTIC ASSISTED RIG HT TOTAL KNEE Start: 10-01-2022 Lipid 1996 panel - S alanna or Plasma Tre Justin DO Work Phone: Start: 10-01-2022 Thyrotropin [Units/v olume] in Serum or Plasma Tre Joleonila DO Work Phone: Start: 09-16-2022 CT angiography [...] Pelvic & Breast Exam (Medicare) Azra Gee POST GRADUATE INTERN Work Phone: Start: 12-09-2016 End: 12-09-2016 *BMP Hanna Urbano MD Work Phone: Start: 12-09-2016 End: 12-10-2016 *Hepatic Function Panel Hanna vargas MD Work Phone: Start: 12-09-2016 End: 12-09-2016 Lipase [Enzymatic activity/volume] in Serum or Plasma Hanna Urbano MD Work Phone: Start: 03-22-2016 Mammography Azra mcfarland Work Phone: Start: 03-04-2015 MAMMOGRAM SCREENING BAM Azra Gee Work Phone: Start: 03-19-2003 Colonoscopy Azra jamess Work Phone: Decompression of med inderjit nerve DR PJ MAHONEY MD Comment on above: BILATERAL Excision of bunion DR PJ MAHONEY MD Comment on above: BILATERAL Fusion of lumbosacra l region of spine by posterior approach DR PJ MAHONEY MD Hysterectomy DR PJ Florian MD Ligation of fallopian tube Leela MAHONEY MD Plantar fasciectomy DR STEPHEN MAHONEY [...] Screening for malign ant neoplasm of colon [facility] Start: 05-22-2029 Screening for malign ant neoplasm of colon [facility] Start: 10-05-2025 Diabetes mellitus screening Diabetes Screening [facility] Start: 03-28-2025 ambulatory Ambulatory Facility:[facility] Start: 10-05-2023 Hemoglobin A1c measurement Diabetes: Hemoglobin A1C [facility] Start: 10-01-2023 Lipid panel Lipid Panel [facility] Start: 10-01-2023 Thyroid stimulating hormone measurement TSH Level [facility] Start: 08-29-2023 Medicare Advantage A nnual Wellness Visit Medicare Advantage Annual Wellness Visit [facility] Start: 08-05-2023 COVID-19 Vaccine (4 - Pfizer series) COVID-19 Vaccine (4 - Pfizer series) [facility] Start: 2023 Advance Directive Discussion Advance Directive Discussion [facility] Start: 2023 Bone Density Screening Bone Density Screening [facility] Start: 2023 Pneumococcal Vaccine : 65+ Years (2 of 2 - PCV) Pneumococcal Vaccine: 65+ Years (2 of 2 - PCV) [facility] Start: 04-29-2023 COVID-19 Vaccine ( season) COVID-19 Vaccine ( season) [facility] Start: 04-29-2023 Influenza vaccination Influenza Vacc ine (#1) [facility] Start: 04-01-2023 Depresssion Monitoring Depresssion M onitoring [facility] Start: 01-02-2023 Hemoglobin A1c measurement Diabetes: Hemoglobin A1C [facility] Start: 09-17-2022 [facility] Start: 09-16-2022 Ambulation without limitation [facility] Start: 09-16-2022 Assessment of risk o f venous thromboembolism [facility] Start: 09-16-2022 Care regimes management [facility] Start: 09-16-2022 Catheterization of vein [facility] Start: 09-16-2022 Continuous positive airway pressure ventilation treatment [facility] Start: 09-16-2022 Insertion of cathete r into peripheral vein [facility] Start: 09-16-2022 Notification of physician [facility] Start: 09-16-2022 Oxygen therapy [facility] Start: 09-16-2022 Providing care accor ding to standard [facility] Start: 09-16-2022 [facility] Start: 09-16-2022 Admission procedure [facility] Start: 09-16-2022 Following clinical pathway protocol [facility] Start: 09-16-2022 Patient referral to dietitian [facility] Start: 08-29-2022 DEPRESSION ASSESSMENT DEPRESSION ASS ESSMENT [facility] Start: 04-29-2022 Influenza vaccination INFLUENZA (#1) [facility] Start: 04-09-2022 DIABETES SCREEN DIABETES SCREEN [facility] Start: 09-25-2021 Anesthesia lumbar re gion nos ANESTH SPINE CORD SURGERY [facility] Work Phone: Start: 09-25-2021 Impltj/rplcmt ithcl/ edrl drug nfs prgrbl pump IMPLANT SPINE INFUSION PUMP [facility] Work Phone: Start: 08-29-2021 DEPRESSION ASSESSMENT [facility] Start: 04-29-2021 Influenza vaccination INFLUENZ A (Season Ended) [facility] Start: 04-09-2020 Hepatitis B screening URINE ALBUMIN:CREATININE RATIO [facility] Start: 2018 Hepatitis B Vaccine (1 of 3 - Risk 3-dose series) Hepatitis B Vaccine (1 of 3 - Risk 3-dose series) [facility] Start: 2018 RSV Immunization age d 60 or older (1 - 1-dose 60+ series) RSV Immunization aged 60 or older (1 - 1-dose 60+ series) [facility] Start: 07-25-2017 End: 07-25-2017 Appointment Appointment [facility] Start: 03-22-2017 Mammography [facility] Start: 12-09-2016 End: 12-09-2016 *BMP *BMP [facility] Start: 12-09-2016 End: 12-10-2016 *Hepatic Function Panel *Hepatic Function Panel [facility] Start: 12-09-2016 End: 12-09-2016 Ct abdomen & pelvis w/contrast material CT Abdomen/pelvis; with contrast [facility] Start: 12-09-2016 End: 12-10-2016 Follow Up after Imaging/labs Follow Up after Imaging/labs [facility] Start: 12-09-2016 End: 12-09-2016 Lipase *Lipase [facility] Start: 12-08-2015 End: 12-08-2015 *CBC with Differential *CBC with Differential [facility] Start: 12-08-2015 End: 12-08-2015 *CMP Complete Metabolic Panel *CMP Complete Metabolic Panel [facility] Start: 12-08-2015 End: 12-08-2015 *PROTS Protein S Defic. Profile [id number] *PROTS Protein S Defic. Profile [id number] [facility] Start: 12-08-2015 End: 12-08-2015 *UA - Urinalysis w/o Micro *UA - Urinalysis w/o Micro [facility] Start: 12-08-2015 End: 12-08-2015 Antithrombin actual/normal in Platelet poor plasma by Chromogenic method *AT3 - Antithrombin 3 Activity [id number] [facility] Start: 12-08-2015 End: 12-08-2015 Cardiolipin Antibodies (IgA IgG IgM) Cardiolipin Antibodies (IgA IgG IgM) [facility] Start: 12-08-2015 End: 12-08-2015 Clotting inhibitors protein c activity Protein C Activity [facility] Start: 12-08-2015 End: 12-08-2015 Ct thorax w/contrast material CT Chest with Contrast [facility] Start: 12-08-2015 End: 12-08-2015 Factor V (Leiden) Mutation Analysis Factor V (Leiden) Mutation Analysis [facility] Start: 12-08-2015 End: 12-08-2015 Lipid panel [AGGREGATE] *Lipid Profile [facility] Start: 12-08-2015 End: 12-08-2015 Thyroid stimulating hormone (TSH) *TSH [facility] Start: 12-08-2015 End: 12-08-2015 Urine, microalbumin *Urine, Microalbumin [facility] Start: 07-29-2015 LIPID SCREEN LIPID SCREEN [facility] Start: 02-26-2014 Screening for malign ant neoplasm of colon SIGMOIDOSCOPY [facility] Start: 02-26-2014 SIGMOIDOSCOPY SIGMOIDOSCOPY [facility] Start: 03-19-2013 Colonoscopy COLONOSCOPY [facility] Start: 03-19-2013 COLORECTAL CANCER SCREENING COLORECTAL CANCER SCREENING [facility] Start: 03-19-2013 Screening for malign ant neoplasm of colon [facility] Start: 07-03-2011 Hemoglobin A1c/Hemoglobin.total in Blood HBA1C [facility] Start: 2008 Screening for malign ant neoplasm of colon [facility] Start: 2008 SHINGRIX VACCINE (1 of 2) ROMAN GRIX VACCINE (1 of 2) [facility] Start: 2003 COLOGUARD (FIT-DNA) COLOGUARD (FIT-D NA) [facility] Start: [address] COLONOGRAPHY [facility] Start: 2003 FECAL OCCULT BLOOD FECAL OCCULT BLOO D [facility] Start: 1998 Screening for malign ant neoplasm of breast Mammogram [facility] Start: 1988 Screening for malign ant neoplasm of cervix [facility] Start: 1980 DTaP/Tdap/Td Vaccine s (1 - Tdap) DTaP/Tdap/Td Vaccines (1 - Tdap) [facility] Start: 1979 Screening for malign ant neoplasm of cervix [facility] Start: 1977 DTaP/Tdap/Td Vaccine s (1 - Tdap) DTaP/Tdap/Td Vaccines (1 - Tdap) [facility] Start: 1977 Urine microalbumin profile [facility] Start: 1977 Urine screening for protein Diabetes: Urine Protein Screening [facility] Start: 1976 ANNUAL PCP TEAM TRANSIT OPERATOR DYLAN DISEASE VISIT ANNUAL PCP TEAM CHRONIC DISEASE VISIT [facility] Start: 1976 Hepatitis B surface antibody level LDL CHOLESTEROL [facility] Start: 1976 HEPATITIS C SCREENING HEPATITIS C SC REENING [facility] Start: 1976 Hepatitis C screening Hepatitis C Sc reening [facility] Start: 1976 HIV SCREENING HIV SCREENING [facility] Start: 1970 Adult depression screening assessment DEPRESSION SCREENING [facility] Start: 1968 3 comp foot exam completed DIABETIC FOOT EXAM [facility] Start: 1968 Diabetic foot examination Diabetes: Foot Exam [facility] Start: 1968 Glaucoma screening Diabetes: R etinopathy Screening [facility] Start: 1968 Hepatitis B screening Urine Albumin:Creatinine Ratio [facility] Start: 1968 Hepatitis C antibody , confirmatory test DILATED RETINAL EXAM [facility] Start: 1968 Preventive dental service Diabetes: Dental Exam [facility] Start: 1964 PNEUMOCOCCAL (1 - PCV) PNEUMOCOCCAL (1 - PCV) [facility] Start: 1964 Pneumococcal Vaccine : 65+ (1 - PCV) Pneumococcal Vaccine: 65+ (1 - PCV) [facility] Start: 1959 MMR Vaccines (1 of 1 - Standard series) MMR Vaccines (1 of 1 - Standard series) [facility] Start: 1958 COVID-19 VACCINE (#1) COVID-19 VACCI NE (#1) [facility] Start: 1958 Annual wellness visit Medicare Initial Physical (IPPE) [facility] Start: 1958 Hepatitis B Vaccines (1 of 3 - 3-dose series) Hepatitis B Vaccines (1 of 3 - 3-dose series) [facility] Start: 1960 HIV screening HIV Screening [facility] Start: 1960 Lipid panel Lipid Panel [facility] Start: 1960 Screening for malign ant neoplasm of colon [facility] Start: 1960 Screening for osteoporosis Bone Density Scan [facility] Start: 1960 Thyroid stimulating hormone measurement TSH Level [facility] End: 09-06-2023 Moderate Sedation Moderate Sedation Procedures Routine Once for 1 Occurrences starting 09/06/2023 until 09/06/2023 [facility] Service Area Work Phone: Comment on above: Once for 1 Occurrenc es starting 09/06/2023 until 09/06/2023 Patient Education [facility] Patient referral [facility] Work Phone: End: 10-27-2023 XR ANKLE GENERAL 3V AP/LAT/OBL LEFT XR ANKLE GENERAL 3V AP/LAT/OBL LEFT Radiology Routine Acquired valgus deformity of left ankle 1 Occurrences starting 09/28/2022 until 10/27/2023 [facility] Work Phone: Comment on above: 1 Occurrences starti ng 09/28/2022 until 10/27/2023 [facility] Immunizations Immunization Date Immunization Notes Care Provider Fa [facility] 06-16-2022 influenza virus vaccine, unspecified formulation Yovanny Landis MD Work Phone: [facility] [employer] 06-25-2018 influenza virus vaccine, unspecified formulation Xr Rej Work Phone: [facility] 05-29-2015 influenza, seasonal, injectable Dr. Rica Padgett Work Phone: [facility] 06-29-[address] Rica Padgett Work Phone: [facility] 07-26-2012 influenza virus vaccine, unspecified formulation Azra Gee Work Phone: [facility] 05-13-[address] Danya Padgett Work Phone: [facility] Work Phone: 05-13-2012 pneumococcal vaccine , unspecified formulation Dr. Rica Padgett Work Phone: [facility] NEGATED: Highlighted row has not occurred!10-03-2022 Influenza, injectable, [facility] [place] Canine Kidney, preservative free, quadrivalent Tre Anderson DO Work Phone: [facility] [employer] Comment on above: Deferred: Patient Re fused Payers Date Payer Category Payer Self-pay [id number] 2022 [facility] (NICOLA and others) [id number] 2022 [employer] of [employer] ( and others) [id number] 2022 Private Health Insurance [id number] 2022 Medicare [id number] 2017 Unknown [id number] 2013 [employer] of [employer] ( and others) [id number] 2013 Unknown FOR LIFE [id number] 2013-Present Indemnity [id number] 2007 Medicare MEDICARE MEDICAR E B [id number] 2007-2016 [place] Medicare [id number] .[id number] 2007 Medicare [id number] 1.13.159.2 .[id number] 2004 Medicare [id number] 2004 Medicare MEDICARE MEDICAR E A AND B [id number] 2004-Present [place] [id number] .7.3.391846.315 2004 Unknown 1958 Unknown [id number] 2.16.840.1.711203.3.579.2 .651 1958 Unknown [id number] 2.16.840.1.267746.3.579.2 .627 1958 Unknown [id number] 2.16.840.1.872113.3.579.2 .627 1958 Unknown [id number] 2.16.840.1.262838.3.579.2 .627 1958 Unknown [id number] 2.16.840.1.458885.3.579.2 .1243 Unknown [id number] 2.16.840.1.158944.3.579.2 .462 Unknown [id number] 2.16.840.1.920725.3.579.2 .462 Unknown [id number] 2.16.840.1.745960.3.579.2 .462 Unknown [id number] 2.16.840.1.473516.3.579.2 .462 Unknown [id number] 2.16.840.1.124122.3.579.2 .462 Unknown [id number] 2.16.840.1.695226.3.579.2 .462 Unknown [id number] 2.16.840.1.202610.3.579.2 .462 Unknown [id number] 2.16.840.1.022793.3.579.2 .462 Unknown [id number] 2.16.840.1.385955.3.579.2 .462 Unknown [id number] 2.16.840.1.274651.3.579.2 .462 Unknown [id number] 2.16.840.1.565929.3.579.2 .462 Unknown [id number] 2.16.840.1.058358.3.579.2 .462 Unknown [id number] 2.16.840.1.346016.3.579.2 .462 Unknown [id number] 2.16.840.1.003497.3.579.2 .462 Unknown [id number] 2.16.840.1.451941.3.579.2 .462 Unknown [id number] 2.16.840.1.120284.3.579.2 .462 Unknown [id number] 2.16.840.1.470003.3.579.2 .462 Unknown [id number] 2.16.840.1.825753.3.579.2 .462 Unknown [id number] 2.16.840.1.400158.3.579.2 .462 Unknown [id number] 2.16.840.1.306958.3.579.2 .462 Unknown [id number] 2.16.840.1.661702.3.579.2 .462 Unknown [id number] 2.16.840.1.566499.3.579.2 .462 Unknown [id number] 2.16.840.1.673660.3.579.2 .462 Unknown [id number] 2.16.840.1.649043.3.579.2 .462 Social History Date Type Detail Facility Start: 03-06-2011 End: 09-21-2012 Tobacco smoking status NEIS Former smoker [facility] Work Phone: Comment on above: quit in 1993 End: 03-21-1994 History of tobacco use Current smoker [facility] Start: 09-21-2012 End: 09-06-2023 Tobacco use and exposure Never used [facility] Start: 09-21-2012 Alcohol intake 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 (finding) [facility] Start: 1960 Sex Assigned At Not on file C [facility] Start: 11-10-2021 End: 09-16-2022 Tobacco smoking consumption unknown [facility] Start: 08-11-2019 Rare [facility] Start: 08-11-2019 None [facility] Start: 12-08-2020 Spouse/ Signif icant Other [facility] Start: 05-18-2019 Non-smoker [facility] Start: 1960 Sex Assigned At Female W [facility] End: 03-21-1994 History of tobacco use Cigarette Smoker [facility] Work Phone: Start: 04-13-2022 Alcohol intake Current drinke r of alcohol (finding) [facility] Start: 04-09-2019 History SDOH Alcohol Comment rarely [facility] Start: 05-09-2022 End: 09-06-2023 Exposure to SARS-CoV-2 (event) Not sure [facility] Start: 02-03-2023 End: 09-06-2023 Tobacco smoking status Never smoked tobacco (finding) [facility] [place] Sex Assigned At Sex [facility] Start: 04-13-2022 End: 10-02-2022 History of Social function [facility] Start: 04-13-2022 End: 10-02-2022 Tobacco use panel [facility] National Score (1-10 0), lower number is lower risk Not on file [facility] Start: 09-06-2023 Alcohol intake Lifetime non-d sue (finding) [facility] Work Phone: Within the last year , have you been afraid of your partner or ex-partner? No [facility] How often to you hav e a drink containing alcohol? Monthly or less [facility] How many standard drinks containing alcohol do you have on a typical day? 1 or 2 [facility] How often do you hav e 6 or more drinks on 1 occasion? Never [facility] Start: 10-04-2022 Sexual orientation Heterosexual (fin omari) [facility] Start: 10-02-2022 History SDOH Alcohol Frequency 2 [facility] Start: 10-02-2022 History SDOH Alcohol Std Drinks 1 [facility] Medical Equipment Procedure Code Equipment Code Equipment [...] Facility 02-24-2023 Functional Status Room check performed [facility] 02-24-2023 Functional Status [facility] 02-24-2023 Functional Status Independent [facility] 02-24-2023 Functional Status Min A [facility] 02-24-2023 Functional Status Demonstrates C orrect Call Light Use Yes [facility] 02-23-2023 Functional Status [facility] 02-23-2023 Functional Status Dinner Percent 25 [facility] 02-23-2023 Functional Status [facility] 02-23-2023 Functional Status 60 [facility] 02-23-2023 Functional Status 2 [facility] 02-23-2023 Functional Status Single level home [facility] 02-23-2023 Functional Status [facility] 02-22-2023 Functional Status [facility] 02-22-2023 Functional Status [facility] 02-22-2023 Functional Status Cane, Walker [facility] 02-22-2023 Functional Status ice on, tension pillow in place [facility] 02-22-2023 Functional Status NPO Status Maintained [facility] 02-03-2023 Functional Status Sensory Deficits None [facility] 09-17-2022 Functional status Ambulates [facility] Work Phone: Mental Status Date Assessment Result Facility 02-24-2023 Mental Status Orientation Asse ssment Oriented x [address] [facility] 02-24-2023 Mental Status [facility] 02-24-2023 Mental Status Oriented x 4 [facility] 02-23-2023 Mental Status [facility] 02-23-2023 Mental Status [facility] aissatou [facility] 09-16-2022 Cognitive function Voice/Name [facility] Work Phone: 01-30-2022 Cognitive function Level Of Cons ciousness Awake;Alert;Appropriate;Follow s Commands [facility] Work Phone: 09-25-2021 Cognitive function Level Of Cons ciousness Appropriate;Drowsy [facility] Work Phone: 09-25-2021 Cognitive function Voice/Name [facility] Work Phone: Clinical Notes 02-07-2015 to 07-28-2024 Telephone Encounter - Kitty Greco - 11/07/2023 10:14 AM EDTTelephone Encounter - Kitty Greco - 11/07/2023 10:14 AM EDTTelephone Encounter - Maria Teresa Bacon - 11/03/2023 9:43 AM EST Note Date & Type Note Facility 07-28-2024 Note [facility] Medical Records Department [address] [place] [address] Discharge Summary 07/28/24 1433 MR#: [id number] Acct: [id number] Name: FLEX WOOTEN Rep #: [id number] : 1960 64 From: Tre Anderson DO PCP: Dr. Rica Padgett DO Status:ADM LATRICIA Location: [place] [address] Providers Date of Admission: 07/27/24 Primary Care Physician: Dr. Rica Padgett DO Reason For Visit: HYPOXIA Diagnosis Discharge Diagnosis (1) Hypoxia: Status: Acute Code(s): R09.02 - Hypoxemia (2) Diabetes mellitus with hyperglycemia: Status: Acute Code(s): E11.65 - Type 2 diabetes mellitus with hyperglycemia Plan Hypoxia * likely multifactorial: OHS, SEDA, chonic narcotic use (OARRS reviewed and she receives Percocet and hydromorphone power from Dr. Trejo) and lorazepam. * home oxygen evaluation. * CTA chest reviewed and is unremarkable. * Patient was ambulated and was 97% on room air and 93% with ambulation on room air. Patient will not require oxygen upon discharge. Leg cramping possibly 2/2 spinal stenosis. * probably related with FM and diabetic neuropathy. * already on gabapentin * CT showed spinal stenosis, most prominent at L2-3 * Prednisone 40 mg daily for 5 days. * Her back surgery was back in the . Recommend that she follow up with spinal surgery. I informed her of our spinal surgeons here, she would like to follow up with the [facility] instead. Chronic conditions: * Type 2 diabetes mellitus with hyperglycemia: uncontrolled. Pt unable to get Prema so has not taken her insulin. She is open to using her glucometer??? Follows with outpatient endocrinology. Blood glucose 421 on admit. Patient notably has had improvement in blood sugars with A1c 8.1% on 06/06, down from 10.4% on 04/02. Current home regimen of Lantus 44 units at night and Humalog 35 units with meals with sliding scale insulin as needed. Also on Ozempic weekly. Will treat with Lantus 40 units at night and Humalog 20 units with meals plus sliding scale insulin while inpatient. * Anxiety/depression??? Follows with outpatient psychiatry. Continue home lorazepam 3 times daily as needed, escitalopram, hydroxyzine at night, trazodone at night and clonidine as needed while inpatient. * Chronic pain with fibromyalgia??? Continue home oxycodone???acetaminophen twice daily as needed and gabapentin. * Chronic debility??? Lives at home with , uses walker at baseline and has wheelchair available to her as well. No inpatient therapy needs, okay for discharge home with . * obesity class III: BMI 43 on admit. Encouraged lifestyle modifications. Complicates hospital course, care and prognosis. * SEDA: Continue home CPAP with 2 L oxygen bleed in. * Hypertension: Continue home atenolol and lisinopril. * Hyperlipidemia: Continue home statin. * Hypothyroidism: Continue home Synthroid. * GERD: Continue home PPI. DVT prophylaxis: Lovenox twice daily CODE STATUS: Full code, verified Medications at Discharge Home Medications omeprazole 40 mg capsule,delayed release 40 mg PO DAILY GERD 08/30/13 trazodone 100 mg tablet 100 mg PO QHS mood 08/30/13 levothyroxine 50 mcg tablet 50 mcg PO DAILY thyroid 10/21/17 simvastatin 20 mg tablet 20 mg PO DAILY cholesterol 10/21/17 atenolol 25 mg tablet 25 mg PO DAILY heart 05/18/19 methotrexate sodium 2.5 mg tablet 20 mg PO FR fibromyalgia 08/19/20 leucovorin calcium 10 mg tablet 5 mg PO FR supplement 12/08/20 cholecalciferol (vitamin D3) 25 mcg (1,000 unit) capsule 25 mcg PO DAILY supplement 09/13/22 lisinopril 20 mg tablet 20 mg PO DAILY blood pressure #30 tabs 09/17/22 gabapentin 100 mg capsule 100 mg PO TID nerve pain 90 days #270 caps 09/07/23 hydroxyzine pamoate 50 mg capsule 50 mg PO QHS mood #30 caps 09/07/23 clonidine HCl 0.1 mg tablet 0.1 mg PO Q8H PRN PRN Anxiety/tremors #1 TAB 03/03/24 folic acid 1 mg tablet 1 mg PO BREAKFAST #30 tabs 03/03/24 insulin lispro 100 unit/mL subcutaneous pen (Humalog KwikPen (U-100) Insulin) See Rx Instructions .Route .COMPLEX diabetes #15 mL 03/03/24 escitalopram oxalate 20 mg tablet 20 mg PO DAILY mood #90 tabs 03/26/24 blood-glucose sensor (FreeStyle Prema 3 Sensor device) #6 ea 04/02/24 lorazepam 1 mg tablet 1 mg PO TID mood 05/07/24 Ozempic 0.25 mg or 0.5 mg (2 mg/3 mL) subcutaneous pen injector (semaglutide) 0.5 mg (0.736 mL) subcut QWEEK #3 mL 06/07/24 oxycodone-acetaminophen 5 mg-325 mg tablet 1 tab PO BID 07/27/24 tizanidine 4 mg tablet 4 mg PO TID 07/27/24 insulin glargine-yfgn 100 unit/mL (3 mL) subcutaneous pen 52 unit subcut QHS diabetes 07/28/24 insulin lispro 100 unit/mL subcutaneous pen (Humalog KwikPen (U-100) Insulin) 35 unit subcut DAILY 07/28/24 lancets-blood glucose test strips-pen needles with gauze kit #1 ea 07/28/24 prednisone 20 mg tablet 40 mg (2 x 20 mg) PO DAILY #8 tabs 07/28/24 Hospital Course Operations No (more content not included)... [facility] 11-07-2023 Note Spoke to patient and advised her that we have not received her referral and requested her to have her pcp refax the referral to us. Patient verbalized understanding. [facility] 11-07-2023 Telephone encounter Note Spoke to patient and advised her that we have not received her referral and requested her to have her pcp refax the referral to us. Patient verbalized understanding. [facility] 11-07-2023 Miscellaneous Notes Spoke to patient and advised her that we have not received her referral and requested her to have her pcp refax the referral to us. Patient verbalized understanding. Name of caller: Flex Contact phone number: [phone] Relationship to Patient: patient Provider: Dr. Landis [...] their call: No documented in this encounter [facility] 11-03-2023 Telephone encounter Note Name of caller: Flex Contact phone number: [phone] Relationship to Patient: patient Provider: Dr. Landis [...] business hours to return their call: No [facility] 09-06-2023 Hospital Discharg e instructions Mariia Mcghee [...] having your procedure, call the [facility] to be advised whether a visit to [...] Lab, please call: Nurse Signature Date Patient/Responsible Alliance Party Signature Date documented in this encounter [facility] Work Phone: 09-06-2023 History and physical [...] care of this patient. Renita Mijares DO [facility] Work Phone: 09-06-2023 History and physical note [...] Renita Mijares DO documented in this encounter [facility] Work Phone: 09-06-2023 Miscellaneous Notes Patient: Flex Wooten Pre-sedation Evaluation: Sedation necessary for: Analgesia Requesting service: Endoscopy History of Present Illness: Colonoscopy Past Medical History: Diagnosis Date Anxiety Chronic pain Depression Diabetes mellitus (CMS/HCC) Disease of thyroid gland Sleep apnea Principle problems: There are no problems to display for this patient. Allergies: Allergies Allergen Reactions Effexor [Venlafaxine] GI Upset PHARMACY MANAGER/Current Medications: (Not in a hospital admission) Current [...] ASA 2 Moderate documented in this encounter [facility] Work Phone: 09-06-2023 Note Formatting of [...] Allergies Allergen Reactions Effexor [Venlafaxine] GI Upset PHARMACY MANAGER/Current Medications: (Not in a hospital admission) Current [...] - normal exam Plan ASA 2 Moderate [facility] Work Phone: 09-06-2023 Note Formatting of [...] Allergies Allergen Reactions Effexor [Venlafaxine] GI Upset PHARMACY MANAGER/Current Medications: (Not in a hospital admission) Current [...] - normal exam Plan ASA 2 Moderate [facility] Work Phone: 02-24-2023 Hospital Discharg e instructions Patient Education 02/24/2023 14:38:28 5 - [facility] Post-op Instruction 03/2017 (98027) [facility] Post-operative Instructions PLEASE FOLLOW [facility] POST-OP INSTRUCTIONS GIVEN WATCH FOR SIGNS OF INFECTION: call the office ([phone]) if experencing any of the following: (Usually [...] on your follow up instructions. Form: 338A ([id number]) R: 01/02 Follow Up Care 08/11/2022 13:44:36 With:MATTHEW HERNÁNDEZ PA-C, Orthopedic Address: [facility] [address] [place] [id number]- When:03/07/2023 10:15:[address] [facility] 02-24-2023 Note Discharge Instructions Thank you for allowing [facility] to assist you with your healthcare needs. The following is important discharge information regarding your hospital visit. Your Care Team [facility] Your Diagnosis Osteoarthritis Diabetes HTN (hypertension) Sleep apnea Status post total right knee replacement What to do next Follow Up Appointments Follow Up with MATTHEW HERNÁNDEZ PA-C, Orthopedic When 03/07/2023 10:15 AM EDT Where: [facility] [address] [place] [address]- The Following Activity and Diet Have Been [...] FOR SIGNS OF INFECTION: call the office ([phone]) if experencing any of the following: (Usually [...] on your follow up instructions. Form: 338A ([id number]) R: 01/02 Additional Information VACCINATE! IT SAVES LIVES! Members of the community who have not yet received the COVID-19 vaccine and would like to receive it can visit one of [facility] vaccine clinics. There are many vaccine clinic locations within the [facility]. For locations and available times, please visit [email or web address].coronavirus.o hio.gov/. It is important to note that some COVID mobile vaccine clinics are held outdoors and may be canceled in rainy or stormy conditions. To learn more about pediatric vaccinations (ages 5-11), we invite you to visit the [facility] webpage. https://www.[facility].org/p ages/6046-Mknkt-Hiulmydqdzv-Freq ayyhzo-Gildh-Gyqhfwfzl.html To learn more about the COVID-19 vaccine, we invite you to visit the CDC website for a list of frequently asked questions.https://www.cdc.gov/co ronavirus/2019-ncov/vaccines/faq .html [employer] Patient Portal Access Instructions: Stay connected with your healthcare team and access your personal medical information anytime with the [employer] Patient Portal. Please follow the directions below to create your [employer] account: 1.Access the email account you provided upon registration to the hospital/physician office.2.Look for an invitation email from [facility].3.Open the email and access the invitation link: Accept Invitation to [employer].4.Fill in the required morocho to create your account. To access your account, visit [email or web address]. Click the blue button labeled Access Patient [...] you will allow to register on the [facility] [employer] Patient Portal for access to your information. You can also access the [facility] [employer] Patient Portal on the [facility] [employer] otoniel. Simply click on Patient Portal and then log into your account. If you would like to receive a full copy of your medical records, please contact the [facility] Medical Records Department by calling [phone], Tuesday through Tuesday between 8 a.m. and [...] Call your local pharmacy or go to http://bit.ly/2D0Vi8x to find one close to you.3.Make use of household items: Use cat litter or old coffee grounds to dispose medications if other options are not available. Mix your drugs with these household products, seal them in an airtight container and throw it into the garbage. Call [facility]: [phone] to be sure your drugs can be [...] CHART COPY. Signatures Patient Education Materials [facility] Post-op Instruction 03/2017 (50110) Medication Leaflets My discharge plan and instructions have been reviewed and explained to me and I,FLEX WOOTEN understand my current condition and have read and understand these discharge instructions. I have received a written copy of the plan/instructions. If I have questions, I am aware that I should contact my doctor. Patient/Tobacco Sprayer Signature: Date/Time: Relationship to Patient: Witness Name/Signature: Date/Time: [facility] 02-24-2023 Note Discharge Instructions Thank you for allowing [facility] to assist you with your healthcare needs. The following is important discharge information regarding your hospital visit. Your Care Team [facility] Your Diagnosis Osteoarthritis Diabetes HTN (hypertension) Sleep apnea Status post total right knee replacement What to do next Follow Up Appointments Follow Up with MATTHEW HERNÁNDEZ PA-C, Orthopedic When 03/07/2023 10:15 AM EDT Where: [facility] [address] [place] [address]- The Following Activity and Diet Have Been [...] needed for pain Printed Prescription 02/24 @ :07 New docusate-senna (Senokot S) 2 tab(s) by mouth Two (2) times a day Duration: 2 Days Take until first bowel movement, then as needed 02/24 @ :07 New meloxicam (Mobic 7.5 mg oral tablet) [...] by mouth Three (3) times a day 02/24:07 Unchanged dulaglutide (Trulicity Pen 1.5 mg/ 0.5 [...] The extended-release form of oxycodone is for nxyuux-nvm-wcgnd treatment of pain and should not be [...] against the law. Stop taking all other wbuzzo-zgs-kjles opioid pain medicines when you start taking [...] may report side effects to FDA at 3-060-WBV-8228. What other drugs will affect oxycodone? You [...] may affect oxycodone. This includes prescription and gncp-low-ddcxlsv medicines, vitamins, and herbal products. Not all [...] to ensure that the information provided by [employer]. ('[employer]') is accurate, up-to-date, and complete, but no guarantee is made to that effect. Drug information contained herein may be time sensitive. [employer] information has been compiled for use by healthcare practitioners and consumers in the [place] and therefore [employer] does not warrant that uses outside of the [place] are appropriate, unless specifically indicated otherwise. [employer]'s drug information does not endorse drugs, diagnose patients or recommend therapy. [employer]'s drug information is an informational resource designed [...] effective or appropriate for any given patient. [facility] does not assume any responsibility for any aspect of healthcare administered with the aid of information [facility] provides. The information contained herein is not intended to cover all possible uses, directions, precautions, warnings, drug interactions, allergic reactions, or adverse effects. If you have questions about the drugs you are taking, check with your doctor, nurse or pharmacist. Copyright 8147-6512 [facility]. Version: 14.02. Revision Date: 09/25/2020. Education Materials [facility] Post-operative Instructions PLEASE FOLLOW [facility] POST-OP INSTRUCTIONS GIVEN WATCH FOR SIGNS OF INFECTION: call the office ([phone]) if experencing any of the following: (Usually [...] on your follow up instructions. Form: 338A (25020) R: 01/02 Additional Information VACCINATE! IT SAVES LIVES! Members of the community who have not yet received the COVID-19 vaccine and would like to receive it can visit one of [facility] vaccine clinics. There are many vaccine clinic locations within the [facility]. For locations and available times, please visit https://gettheshot.coronavirus.o hio.gov/. It is important to note that some COVID mobile vaccine clinics are held outdoors and may be canceled in rainy or stormy conditions. To learn more about pediatric vaccinations (ages 5-11), we invite you to visit the [facility] webpage. https://www.[facility].org/p ages/1514-Ugerl-Snqqkzdwqad-Freq icgonc-Dzozt-Mxwwthvbd.html To learn more about the COVID-19 vaccine, we invite you to visit the CDC website for a list of frequently asked questions.https://www.cdc.gov/co ronavirus/2019-ncov/vaccines/faq .html [facility] Patient Portal Access Instructions: Stay connected with your healthcare team and access your personal medical information anytime with the [facility] Patient Portal. Please follow the directions below to create your [employer] account: 1.Access the email account you provided upon registration to the hospital/physician office.2.Look for an invitation email from [facility].3.Open the email and access the invitation link: Accept Invitation to [facility].4.Fill in the required morocho to create your account. To access your account, visit Alma Johns/[employer]. Click the blue button labeled Access Patient [...] you will allow to register on the [facility] Patient Portal for access to your information. You can also access the [employer] Patient Portal on the [employer]where otoniel. Simply click on Patient Portal and then log into your account. If you would like to receive a full copy of your medical records, please contact the [facility] Medical Records Department by calling [phone], Tuesday through Tuesday between 8 a.m. and [...] Call your local pharmacy or go to [email or web address] to find one close to you.3.Make use of household items: Use cat litter or old coffee grounds to dispose medications if other options are not available. Mix your drugs with these household products, seal them in an airtight container and throw it into the garbage. Call [facility]: [phone] to be sure your drugs can be [...] CHART COPY. Signatures Patient Education Materials Hunter - Kandis Valverde Post-op Instruction 03/2017 (26161) Medication Leaflets oxycodone My discharge plan and instructions have been reviewed and explained to me and IJE ANN E understand my current condition and have read and understand these discharge instructions. I have received a written copy of the plan/instructions. If I have questions, I am aware that I should contact my doctor. Patient/Tobacco Sprayer Signature: Date/Time: Relationship to Patient: Witness Name/Signature: Date/Time: [facility] Wolf Carlson 02-23-2023 Note Date of Service February 23, 2023 Subjective The patient was sitting in bed upon examination. Patient denies any chest pain, shortness of breath, dizziness, lightheadedness, nausea or vomiting, or calf pain. No adverse overnight events. Pain has been controlled on medications. Patient was evaluated by physical therapy. Discharge planning is possible home health versus residential facility. She has had a previous left total knee arthroplasty that did require residential facility in the past. She states she went to [facility]. We do have physical therapy currently [...] possible discharge home with home health for residential facility. Patient does have steps to manage [...] of pulmonary embolism. I have reviewed the [place] Automated Rx Reporting System (OARRS) report for [...] MATTHEW HERNÁNDEZ PA-C on 02/23/2023 07:[address] [facility] 02-22-2023 Note ORIGINAL EXAMINATION: TWO XRAY [...] 02/22/2023 1:07:27 PM Ordering Provider: PJ MAHONEY [facility] 02-22-2023 Note ORIGINAL EXAMINATION: TWO XRAY [...] Date: 02/22/2023 1:07:27 PM Ordering Provider: PJ [facility] 02-22-2023 Anesthesiology Consult note Patient: FLEX WOOTEN Age: 62 years Sex: Female : 1960 Associated Diagnoses: None Author: MARTINA GOODWIN APRN-RIM ROLLER SETTER Preoperative Information Time of last food or [...] Sister Diabetes Mother Sister Procedure history: Bunionectomy (40464578). Comments: 02/03/2023 13:48 Hansa Álvarez RN BILATERAL Plantar fasciectomy (904538975). Comments: 02/03/2023 13:48 Hansa Álvarez RN LEFT Fusion of lumbosacral region of spine by posterior approach (5899712360). Carpal tunnel release (611009408). Comments: 02/03/2023 13:50 Hansa Álvarez RN BILATERAL Tonsillectomy and adenoidectomy (663770424). Tubal ligation (373478747). Hysterectomy (409752812). Pump, device ([id number]). Comments: 02/03/2023 13:51 EDT - Hansa Nelson RN PAIN PUMP Total knee arthroplasty (5411561000). Comments: 02/03/2023 13:52 EDT - Hansa Nelson RN LEFT Social History Social & Psychosocial [...] Resp Rate 17 br/min (FEB 22 09:31) SDS501 mmHg (FEB 22 09:31) DBP77 mmHg (FEB 22 09:31) Measurements from flowsheet : Measurements 02/22/2023 9:31 EDT Height 162.6 cm Admission Weight 110 kg [place] Body Weight 54.74 kg Admission Body Mass [...] Height 162.6 cm Admission Weight 110 kg [place] Body Weight 54.74 kg Admission Body Mass [...] no difficulties Skin Temperature Warm Skin Description [place], Normal for ethnicity, Dry Skin Integrity Intact Mucous Membrane Color [address] Skin Moisture General Dry IV Present Present [...] no symptoms Safety Brochure Information Reviewed Yes [facility] Video Viewed No Teaching Evaluation No further teaching needed Admission Note-Nursing Same Day Patient History (Modified) . Assessment and Plan [place] Society [employer] Anesthesiologists (ASA) physical status classification: [...] by MARTINA GOODWIN on 02/22/2023 10:[address] [facility] 10-06-2022 Telephone encounter Note Name of caller requesting page:Matthew Phone Number of caller: [phone] ext [phone] Facility requesting page: [facility] Reason for Page: Authorization Provider paged: Dr. Mony Wright Practice Name of paged provider: [facility] Placed to #: secure chat Time Page was sent or provider contacted: 2:40pm Page Content: Matthew, a clinical nurse advisor with [employer], called to inform Dr. Tre Anderson that the authorization for DME home ventilator has been denied. He state Dr. Anderson can do a peer to peer review with their medical billing assistant. The acceptance date for the peer to peer is on or before 10/08/22 at 3pm. Peer to Peer can be scheduled by call Matthew at [phone] ext [phone] with reference number [id number]. Thank you. Response from Dr. Wright: I have never seen or met the patient Im not sure who needs to be contacted for this patient Reached out to [facility] management. Advised to call Ray back. Spoke with another nurse advisor. Asked when order was placed, was advised it was 09/30/22 which was before pt had a chart with [facility]. There is another Dr. Tre Anderson at [facility]. That is where the records came from. The nurses states they will reach out to [facility]. [facility] 10-06-2022 Miscellaneous Notes Name of caller requesting page:Matthew Phone Number of caller: [phone] ext [phone] Facility requesting page: [employer] Reason for Page: Authorization Provider paged: Dr. Mony Wright Practice Name of paged provider: [facility] Placed to #: secure chat Time Page was sent or provider contacted: 2:40pm Page Content: Matthew, a clinical nurse advisor with [employer], called to inform Dr. Tre Anderson that the authorization for DME home ventilator has been denied. He state Dr. Anderson can do a peer to peer review with their medical billing assistant. The acceptance date for the peer to peer is on or before 10/08/22 at 3pm. Peer to Peer can be scheduled by call Matthew at [phone] ext [phone] with reference number [id number]. Thank you. Response from Dr. Wright: I have never seen or met the patient Im not sure who needs to be contacted for this patient Reached out to [facility] management. Advised to call Ray back. Spoke with another nurse advisor. Asked when order was placed, was advised it was 09/30/22 which was before pt had a chart with [facility]. There is another Dr. Tre Anderson at [facility]. That is where the records came from. The nurses states they will reach out to [facility]. documented in this encounter [facility] 06-23-2022 Miscellaneous Notes I left a message for Tessie at [employer] regarding their addendum request. If they have Dr. Montes note, they have all the answers they need. Not sure if they have the patient's clinic note. Mendy Adams RN documented in this encounter [facility] 05-19-2022 Note HNO ID: [id number] Author: Nicolás Aggarwal MD Service: ? Author [...] HISTORY Diagnosis Date DVT (deep venous thrombosis) ([facility]) 2014 post knee replacement Fibromyalgia Hemorrhage of gastrointestinal tract, unspecified Hemorrhage of rectum and anus Internal hemorrhoids without mention of complication Other forms of migraine Other unspecified back disorder Pulmonary embolism ([facility]) 2014 PAST SURGICAL HISTORY Procedure Laterality Date [...] Lungs: No H (more content not included)... [facility] 05-19-2022 Note HNO ID: [id number] Author: RT Charley(R) Service: Radiology Author Type: [...] RT Charley(R) May 19, 2022 10:16 AM [facility] 05-19-2022 History of Presen t illness Narrative [...] HISTORY Diagnosis Date DVT (deep venous thrombosis) ([facility]) 2013 post knee replacement Fibromyalgia Hemorrhage of gastrointestinal tract, unspecified Hemorrhage of rectum and anus Internal hemorrhoids without mention of complication Other forms of migraine Other unspecified back disorder Pulmonary embolism ([facility]) 2013 PAST SURGICAL HISTORY Procedure Laterality Date [...] X-Rays The patient's pertinent medical history from [facility] has been reviewed. PFOMIS forms [...] records. This note was partially generated using [employer] voice recognition system, and there may be [...] Nicolás Aggarwal M.D. 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 Thanks. Patient received letter for annual mammogram, please place order and have superintendent oil field drilling call her. Patient prefers AM appts. documented in this encounter [facility] Evaluation + Plan note Future Appointments [facility] Evaluation note Diagnosis Other screening mammogram documented in this [facility] noteNo assessment information availableWPremier [facility] Work Phone: Evaluation note* Diagnosis Pes planus of left foot- Primary Primary osteoarthritis of left foot Diabetic neuropathy, painful (HCC) Type II or unspecified type diabetes mellitus with neurological manifestations, not stated as uncontrolled Acquired valgus deformity of left ankle [facility] Diagnosis Onset Date Resolution Status Diabetes chronic High cholesterol chronic Hypertension chronic Obesity chronic Diabetes chronic Hypertension chronic Obesity chronic [facility] Work Phone: Evaluation note* Diagnosis Onset Date Resolution Status NIEVES (dyspnea on exertion) re solved Hypoxia resolved [facility] Work Phone: Evaluation note* Diagnosis Acquired valgus deformity of left ankle- Primary [facility]* Diagnosis Pain Generalized pain documented in this encounter [facility] note* Diagnosis Diarrhea, unspecified type- Primary documented in this encounter [facility] Work Phone: Evaluation note* Diagnosis Diarrhea, unspecified type- Primary documented in this encounter [facility] Work Phone: Hospital course Narrative No data available for this section [facility] Hospital Discharge instructions No data available for this section [facility] Progress note No data available for this section [facility] Reason for referral (narrative)* Diagnostic Procedure Only (Routine) - Pending Review Specialty Diagnoses / Procedures Referred By Kelton t Referred To Contact XR IMAGING Diagnoses Acquired valgus deformity of left ankle Procedures XR ANKLE GENERAL 3V AP/LAT/OBL LEFT RADEX ANKLE COMPLETE MINIMUM 3 VIEWS Nicolás [place] [address] [place] [address] Xr Imaging Referral ID Status Reason Start Date Expiration Date Visits Requested Visits Authorized [id number] Pending Review Auto-Generat ed Referral 09/28/2022 10/27/2023 1 1 [facility] for referral (narrative)* Diagnostic Procedure Only (Routine) - Closed Specialty Diagnoses / Procedures Referred By Kelton t Referred To Contact XR IMAGING Diagnoses Pain Procedures XR FOOT GENERAL 3V AP/LAT/OBL LEFT RADEX FOOT COMPLETE MINIMUM 3 VIEWS Nicolás [place] [address] [place] [address] [place] [address] Referral ID Status Reason Start Date Expiration Date V isits Requested Visits Authorized [id number] Closed Auto-Generate d Referral 05/04/2022 06/03/2023 1 1 [facility] Summary Purpose Family History No Family History [...] No November 10, 2021 11:41am Power of Html Web Developer No November 10 11:41am Advance Directive Response Recorded Date/ Time Advance Directives Yes August 01, 2015 5:05pm Living Will No January 25, 2022 2 :05pm Power of Html Web Developer No January 25, 2022 2:05pm Advance Directive Response Recorded Date/ Time Advance Directives Yes August 01, 2015 5:05pm Living Will No January 30, 2022 1 1:58pm Power of Html Web Developer No January 30, 2022 11:58pm Advance Directive Response Recorded Date/ Time Advance Directives Yes April 2:05pm Living Will No May 19, 2022 2:05pm Power of Html Web Developer No April 2:05pm Advance Directive Response Recorded Date/ Time Advance Directives Yes April 2:05pm Living Will No September 16 5:52pm Power of Html Web Developer No September 16, 2022 5:52pm Latest Code [...] RULE OUT PE SOB HYPERGLYCEMIA 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, 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 Reason for Visit Diabetes High cholesterol Hypertension Obesity Diabetes Hypertension Obesity Chief Complaint 3 M FU RULE OUT DVT HYPOXIA HYPOXIA HYPOXIA SOB Reason for Visit NIEVES (dyspnea on exer tion) Hypoxia Reason for Referral Specialty Diagnoses / Procedures Referred By Kelton t Referred To Contact Gastroenterology Diagnoses Diarrhea, unspecified type Procedures Colonoscopy Screening; Average Risk Patient [place] COLONOSCOPY FLX DX W/COLLJ SPEC WHEN PFRMD [place] COLON CA SCRN NOT HI RSK IND IL COLORECTAL SCRN; HI RISK IND IL COLONOSCOPY W/BIOPSY SINGLE/MULTIPLE [place] COLSC FLX W/RMVL OF TUMOR POLYP LESION SNARE TQ [place] COLSC FLX W/REMOVAL LESION BY HOT BX FORCEPS Renita Mijares, DO [address] [facility] [address] [place] [address] Referral ID Status Reason Start Date Expiration Date V isits Requested Visits Authorized [id number] Authorized 07/26/2023 07/25/2024 1 1 Additional Source Comments INFORMATION SOURCE (unrecogn ized section and content) DATE CREATED AUTHOR 05/09/2019 [facility] DATE CREATED AUTHOR AUTHOR'S ORGANIZ ATION 05/09/2019 [facility] DATE CREATED AUTHOR AUTHOR'S ORGANIZ ATION 02/13/2020 [facility] DATE CREATED AUTHOR AUTHOR'S ORGANIZ ATION 05/27/2021 [facility] DATE CREATED AUTHOR AUTHOR'S ORGANIZ ATION 06/26/2022 [facility] DATE CREATED AUTHOR AUTHOR'S ORGANIZ ATION 03/07/2023 [facility] DATE CREATED AUTHOR AUTHOR'S ORGANIZ ATION 09/08/2023 [facility] DATE CREATED AUTHOR AUTHOR'S ORGANIZ ATION 11/07/2023 [facility] DATE CREATED AUTHOR AUTHOR'S ORGANIZ ATION 03/14/2025 [facility] Source Comments (unrecognize d section and content) In the event this informatio n is protected by the Federal Confidentiality of Alcohol and Drug Abuse Patient Records regulations: The Federal rules restrict any use of the information to criminally investigate or prosecute any alcohol or drug abuse patient.[facility] the event this information is protected by the Federal Confidentiality of Alcohol and Drug Abuse Patient Records regulations: The Federal rules restrict any use of the information to criminally investigate or prosecute any alcohol or drug abuse patient.[facility] the event this information is protected by the Federal Confidentiality of Alcohol and Drug Abuse Patient Records regulations: The Federal rules restrict any use of the information to criminally investigate or prosecute any alcohol or drug abuse patient.[facility] the event this information is protected by the Federal Confidentiality of Alcohol and Drug Abuse Patient Records regulations: The Federal rules restrict any use of the information to criminally investigate or prosecute any alcohol or drug abuse patient.[facility] the event this information is protected by the Federal Confidentiality of Alcohol and Drug Abuse Patient Records regulations: The Federal rules restrict any use of the information to criminally investigate or prosecute any alcohol or drug abuse patient.[facility] Reason for Visit (unrecogniz ed section and content) Reason Onset Date Comments Yearly Exam With Mammogram 02/07/2015 Reason Comments New Reason Onset Date Comments Question 06/23/2022 Reason Comments Radio Gen RMP Specialty Diagnoses / Procedures Referred By Contac t Referred To Contact XR IMAGING Diagnoses Pain Procedures XR FOOT GENERAL 3V AP/LAT/OBL LEFT RADEX FOOT COMPLETE MINIMUM 3 VIEWS Nicolás [place] [address] [address] [place] [address] [place] [address] Referral ID Status Reason Start Date Expiration Date V isits Requested Visits Authorized [id number] Closed Auto-Generate d Referral 05/04/2022 06/03/2023 1 1 Specialty Diagnoses / Procedures Referred By Contac t Referred To Contact Diagnoses Diarrhea, unspecified Procedures IL COLONOSCOPY FLX DX W/COLLJ SPEC WHEN PFRMD IL COLONOSCOPY W/BIOPSY SINGLE/MULTIPLE IL COLSC FLX W/RMVL OF TUMOR POLYP LESION SNARE TQ IL COLSC FLX W/REMOVAL LESION BY HOT BX FORCEPS [id number] [address] [place] [address] [phone] Referral ID Status Reason Start Date Expiration Date Visits Re quested Visits Authorized [id number] 1 1 Reason Onset Date Comments Referral [...] Care Teams (unrecognized sec tion and content) Slope Runner Relationship Specialty Start Date End Date Rica Padgett DO [address] [place], [place] [address] PCP - General Family Medicine 04/09/19 Slope Runner Relationship Specialty Start Date End Date Rica Padgett DO [address] [place], [place] [id number] PCP - General Family Medicine 04/09/19 Team Status: Active Member Role Status Dates Dr. Rica Padgett DO Family Provider Active Dr. Rica Padgett , DO Primary Care Provider Active Team Status: Inactive Member Role Status Dates Dr. Rica Padgett DO Primary Care Provider, Referring Glory clemente Active SOLO BarriosC Attending Provider Active Team Status: Active Member [...] Member Role Status Dates Dr. Rica Padgett , DO Primary Care Provider Active Dr. Marie [...] Member Role Status Dates Dr. Rica Padgett , Primary Care Provider Active Dr. Marie Dee , DO Emergency Provider Active Dr. Adebayo Mckeon , DO Admit Provider, Other Provide r Active Dr. Tre Anderson , DO Attending Provider Active Team Status: Inactive Member Role Status Dates Dr. Rica Padgett , DO Primary Care Provider Active Dr. Deuce Shaw MD Attending Provider, Referrin g Provider Active Slope Runner Relationship Specialty Start Date End Date Rica Padgett DO [address] [place] [address] PCP - General Family Medicine 04/09/19 Slope Runner Relationship Specialty Start Date End Date AmishRica montero DO [address] [place] [address] PCP - General Family Medicine 04/09/19 Slope Runner Relationship Specialty Start Date End Date Rica Padgett DO [address] [place] [address] PCP - General Family Medicine 09/06/23 Slope Runner Relationship Specialty Start Date End Date Rica Padgett DO [address] [place] [address] PCP - General Family Medicine 09/06/23 Slope Runner Relationship Specialty Start Date End Date Erin Saunders [address] [place] [address] PCP - General [facility] 10/01/22 Slope Runner Relationship Specialty Start Date End Date Erin Saunders [address] [facility] [place] [address] PCP - General Family [facility] 10/01/22 FOR RECORDS PERTAINING TO PATIENTS WHO [...] BE BASED ON THE PRIMARY CLINICAL RECORDS. [facility] [employer] [facility]. provides no warranty or guarantee of the accuracy or completeness of information in this document.
[2025-03-15] MEDS: 0.9% Normal Saline (1000mL) 1,000 ML 1000 ML IV (18:39)
[2025-03-15 18:58] LABS: Lipase 33 U/L (13-75)
[2025-03-15 18:59] LABS: AST(SGOT) 60 U/L (<=31); Alanine Aminotransfer ALT/SGPT 41 U/L (<=34); Albumin, Serum 3.5 g/dL (3.4-4.8); Alkaline Phosphatase 117 U/L (35-104); Anion Gap 12 (5-15); BUN 15 mg/dL (4-19); BUN/Creat Ratio 22.8 RATIO (10-20); Calcium,Total 8.6 mg/dL (7.6-11.0); Carbon Dioxide 23.9 mmol/L (21.0-32.0); Chloride 101 mmol/L (98-108); Estimated Creatinine Clearance 87.16 ml/min (50-250); Globulin 3.1 g/dL (2.2-4.2); Glucose 239 mg/dL (70-99); Potassium 3.9 mmol/L (3.3-5.1)
--- NOTE | 2025-03-15 19:17 | CT_ITS ---
PROCEDURE: BRAIN/HEAD WITHOUT CONTRAST 03/15/2025 REASON FOR EXAM: AMS TECHNIQUE: BRAIN/HEAD WITHOUT CONTRAST Coronal and Sagittal reconstruction series were provided. One or more dose reduction techniques were used (e.g., Automated exposure control, adjustment of the mA and/or kV according to patient size, use of iterative reconstruction technique. RADIATION DOSE SUMMARY: CTDlvol: 44.99 mGy DLP: 863.6 mGycm COMPARISON: 11/20/2024 FINDINGS: Bony calvarium grossly intact. Paranasal sinuses are clear. Ventricles are normal in caliber. Normal wallace-white differentiation. No intracranial mass. No intra-axial or extra-axial hemorrhage. CT/Brain/Head without Contrast IMPRESSION: No acute abnormality Reading [facility] [place]
[2025-03-15 19:47] LABS: Mucous, Urine 0 SEEN /hpf (<or=2+); Red Blood Cells-Urine 0 SEEN /hpf (0-5)
[2025-03-15 19:52] LABS: Color, Urine Yellow (Yellow); Glucose, Dipstick 250 mg/dl (Normal); Ketone-Dipstick 5 mg/dl (Negative); Leukocyte Esterase-Dipstick 500 /ul (Negative); Nitrite-Dipstick Negative (Negative); Occult Blood-Urine 10 /ul (Negative); Protein-Dipstick 30 mg/dl (Negative); Specific Gravity, Urine 1.025 (1.002-1.030); Urine Bilirubin Dipstick Negative (Negative)
[2025-03-15 19:58] LABS: Ammonia 30.7 umol/L (11-51)
[2025-03-15 20:06] LABS: Squamous Epithelial Cells - UA 5-10 SEEN /hpf (5-10)
--- NOTE | 2025-03-15 20:57 | PCM.HP.STD ---
[facility] - General General Date of Admission: 03/15/25 Date of Service: 03/15/25 Chief Complaint: Confusion. HPI Narrative FLEX SAVAGE, is a 64 F with a past medical history of essential hypertension; on lisinopril, atenolol and prn clonidine, hyperlipidemia; on simvastatin, hypothyroidism; on levothyroxine, former tobacco abuse; (quit ~1993), morbid (class III) obesity; with BMI of 44.5 this admission on semaglutide, SEDA; on BiPAP, DM-2; of unknown control on insulin glargine 52U sq q. PM and insulin lispro 40U sq TID AC, diabetic neuropathy; on gabapentin TID, history of DVT/PE; currently not on anticoagulation, migraine headaches; on prn sumatriptan, GERD; on omeprazole, depression with anxiety; on escitalopram, trazodone, lorazepam prn TID plus hydroxyzine q. HS, history of fibromyalgia; on MTX, muscle spasms; on tizanidine TID and OA; with chronic debility and chronic pain syndrome on prn oxycodone-acetaminophen BID who presents to [facility] ER complaining of confusion. Mrs. Savage is not a reliable historian at this time so information was gathered from chart, medical staff and computer. According to the records her acute symptoms began ~2 days prior to admission with increasing somnolence and confusion. Her family informed the ER physician that she gets her medications prepackaged and that once she takes her AM she sleeps throughout the entire day and then does not take the medications due in the afternoon with an escalating pattern of hypersomnolence and confusion over the past few weeks. In the ER she was noted to have a UA positive for Acute Cystitis; without hematuria complicated by clinical evidence of Toxic/Metabolic Encephalopathy in the setting of Polypharmacy and she was then admitted to the PCU for ongoing care for a stay that is expected to extend beyond 2 midnights. [facility] Medical History (Updated 03/16/25 @ 01:[address] 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 Hallux rigidus, left foot MRSA infection Uses wheelchair Walker as ambulation aid High cholesterol CPAP (continuous positive airway pressure) dependence Sleep apnea Hypothyroidism Anxiety disorder, unspecified Chronic pain Depressive 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 Obesity hypoventilation syndrome Obesity Normal stress echocardiogram Wears glasses PTSD (post-traumatic stress disorder) Depression Anxiety Thyroid disease Insulin dependent diabetes mellitus Ambulates with cane Fibromyalgia Arthritis DVT (deep venous thrombosis) High cholesterol Migraine headache Back pain Gait instability Syncope Dietary restriction History of diverticulitis Gastric reflux Former smoker ASV (adaptive servo-ventilation) use counseling On home oxygen therapy Shortness of breath on exertion Leg cramps History of pain when walking History of edema History of stress test Hypertension Implantable intrathecal infusion pump present Mixed connective tissue disease Osteoarthritis History of DVT (deep vein thrombosis) History of pulmonary embolus (PE) Atrophic vaginitis Bone spur Osteoarthritis calcium calcifications Mixed connective tissue disease History of neuropathy History of spinal stenosis History of diabetes mellitus Acromioclavicular arthrosis Strain of shoulder, left Neck pain Limb weakness Difficulty balancing Fatigue Shoulder pain Gastroesophageal reflux disease DJD (degenerative joint disease) of lumbar spine Home Medications ?Medication ?Instructions ?Recorded ?Last Taken ?Type omeprazole 40 mg capsule,delayed 40 mg PO DAILY GERD 08/30/13 02/20/24 History release trazodone 100 mg tablet 100 mg PO QHS mood 08/30/13 02/19/24 History levothyroxine 50 mcg tablet 50 mcg PO DAILY thyroid 10/21/17 09/15/22 History simvastatin 20 mg tablet 20 mg PO DAILY cholesterol 10/21/17 02/20/24 History atenolol 25 mg tablet 25 mg PO DAILY heart 05/18/19 02/18/24 History methotrexate sodium 2.5 mg tablet 20 mg PO FR fibromyalgia 08/19/20 09/10/22 History leucovorin calcium 10 mg tablet 5 mg PO FR supplement 12/08/20 09/10/22 History cholecalciferol (vitamin D3) 25 25 mcg PO DAILY supplement 09/13/22 09/15/22 History mcg (1,000 unit) capsule lisinopril 20 mg tablet 20 mg PO DAILY blood pressure #30 09/17/22 Unknown Rx tabs hydroxyzine pamoate 50 mg capsule 50 mg PO QHS mood #30 caps 09/07/23 Unknown Rx clonidine HCl 0.1 mg tablet 0.1 mg PO Q8H PRN PRN 03/03/24 02/20/24 13:30 Rx Anxiety/tremors #1 TAB folic acid 1 mg tablet 1 mg PO BREAKFAST #30 tabs 03/03/24 Unknown Rx insulin lispro 100 unit/mL See Rx Instructions .Route 03/03/24 Unknown Rx subcutaneous pen (Humalog KwikPen .COMPLEX diabetes #15 mL (U-100) Insulin) lorazepam 1 mg tablet 1 mg PO TID mood 05/07/24 Unknown History oxycodone-acetaminophen 5 mg-325 1 tab PO BID 07/27/24 Unknown History mg tablet tizanidine 4 mg tablet 4 mg PO TID 07/27/24 Unknown History lancets-blood glucose test #1 ea 07/28/24 Unknown Rx strips-pen needles with gauze kit gabapentin 100 mg capsule 100 mg PO TID nerve pain 90 days 09/03/24 Unknown Rx #270 caps blood-glucose sensor (FreeStyle #6 ea 09/21/24 Unknown Rx Prema 3 Plus Sensor device) sumatriptan succinate 25 mg tablet See Rx Instructions PO .COMPLEX 10/12/24 Unknown Rx (Imitrex) #10 tabs semaglutide 1 mg/dose (4 mg/3 mL) 1 mg (0.75 mL) subcut QWEEK #3 mL 10/30/24 Unknown Rx subcutaneous pen injector (Ozempic) insulin glargine-yfgn 100 unit/mL 52 unit (0.52 mL) subcut QHS 11/12/24 Unknown Rx (3 mL) subcutaneous pen diabetes #5 pens escitalopram oxalate 20 mg tablet 20 mg PO DAILY for depressive 03/05/25 Unknown Rx disorder #90 TABLETS insulin lispro 100 unit/mL 38 unit subcut TIDWMEAL 03/15/25 Unknown History subcutaneous pen (Humalog KwikPen (U-100) Insulin) Allergy/AdvReac Type Severity Reaction Status Date / Time niacin Allergy Itching Verified 03/15/25 17:14 venlafaxine AdvReac Severe Vomiting Verified 03/15/25 17:14 metformin AdvReac Intermediate Diarrhea Verified 03/15/25 17:14 cephalexin (From Keflex) AdvReac Other Verified 03/15/25 17:14 Family History Sister Breast cancer Diabetes Kidney disease Other Arthritis Heart disease Surgical History History of bunionectomy of both great toes History of lumbar fusion History of total right knee replacement Hx of surgical procedure Hx of arthroscopic knee surgery History of carpal tunnel release Hx of hysterectomy History of back surgery Hx of total knee replacement hx of plantar fasciotomy Social History household members: spouse Smoking Status: Former smoker alcohol intake: never substance use type: does not use caffeine: No what type of physical activity do you participate in: none seatbelt use: always do you feel safe at home: Yes additional social history: [employer] at [employer] Patient is disabled ROS ROS Narrative Full ROS was not possible at this time due to patient's toxic/metabolic encephalopathy. Vital Signs Vital Signs Vital Signs: 03/15/25 17:14 03/15/25 17:25 03/15/25 17:43 Temperature 98.3 F Temperature Source Oral Pulse Rate 64 69 Respiratory Rate 16 16 Respiratory Pattern Normal Blood Pressure 137/63 H 166/71 H Blood Pressure Mean 87 102 Pulse Ox 93 100 Oxygen Delivery Method Room Air Room Air 03/15/25 19:14 Temperature Temperature Source Pulse Rate 58 L Respiratory Rate 18 Respiratory Pattern Blood Pressure 130/64 H Blood Pressure Mean 86 Pulse Ox 91 Oxygen Delivery Method Room Air Weight Weight: 259 lb 0.69 oz Body Mass Index (BMI) 44.4 Physical Exam Const Constitutional Narrative: Patient is lethargic but arousable. Orientation / Consciousness: confused and lethargic HEENT normocephalic, head/scalp atraumatic, hearing grossly normal bilaterally and moist oral mucous membranes Eyes PERRL, EOMs intact bilaterally and conjunctivae normal Neck no lymphadenopathy, supple and no JVD Resp normal respiratory effort, no retractions, no use of accessory muscles and clear to auscultation bilaterally Cardio regular rate and regular rhythm GI normal to inspection, nondistended, normoactive bowel sounds, soft to palpation, non-tender and non-distended Extremity normal to inspection, full ROM and no clubbing, cyanosis or edema Skin Skin Narrative: Patient also has a rash, abscess, wounds or jaundice. Neuro CN's II-XII intact bilaterally, moves all extremities and no focal motor deficits Sensorium / Orientation: awake, alert, oriented to person and oriented to place Speech: speech normal Psych affect normal Results Medical Records Data Attestation: I reviewed the patient's medical records Lab / Micro Data Attestation: I reviewed the patient's lab results. 03/15/25 18:11 03/15/25 18:11 Labs: Laboratory Results - last 24 hr 03/15/25 17:29: POC Glucose 250 H 03/15/25 18:11: WBC 9.1, RBC 4.49, Hgb 13.0, Hct 39.5, MCV 88.0, MCH 29.0, MCHC 32.9, RDW Std Deviation 43.7, RDW Coeff of Mouna 13.7, Plt Count 234, MPV 9.5, Immature Gran % (Auto) 0.600, Neut % (Auto) 59.2, Lymph % (Auto) 30.4, [place] % (Auto) 6.4, Eos % (Auto) 2.8, Baso % (Auto) 0.6, Absolute Neuts (auto) 5.4, Absolute Lymphs (auto) 2.75, Nucleated RBC % 0, Sodium 137, Potassium 3.9, Chloride 101, Carbon Dioxide 23.9, Anion Gap 12, BUN 15, Creatinine 0.64 L, Estim Creat Clear Calc 87.16, Est GFR (MDRD) Non-Af 97, BUN/Creatinine Ratio 22.8 H, Glucose 239 H, Calcium 8.6, Total Bilirubin 0.25, AST 60 H, ALT 41 H, Alkaline Phosphatase 117 H, Total Protein 6.6, Albumin 3.5, Globulin 3.1, Albumin/Globulin Ratio 1.1, Lipase 33 03/15/25 19:25: Ammonia 30.7 03/15/25 19:44: Urine Color Yellow, Urine Clarity Sl. Cloudy, Urine pH 5.0, Ur Specific Whittaker 1.025, Urine Protein 30 H, Urine Glucose (UA) 250 H, Urine Ketones 5 H, Urine Occult Blood 10 H, Urine Nitrite Negative, Urine Bilirubin Negative, Urine Urobilinogen Normal, Ur Leukocyte Esterase 500 H, Urine RBC 0 SEEN, Urine WBC 10-25 SEEN, Ur Squamous Epith Cells 5-10 SEEN, Urine Bacteria 2+, Urine Mucus 0 SEEN ABG Data ABG results: ABG 03/15/25 18:18 Specimen Type REJI Sample Site Not entered VBG pH 7.41 VBG pO2 58 H VBG HCO3 30 H VBG Total CO2 32 VBG O2 Sat (Calc) 89 H VBG Base Excess 6 H POC Mix VBG pCO2 Pt Tmp 48.2 O2 Delivery Device Not entered Imaging Radiology Impression Brain CT 03/15/25 19:17 IMPRESSION: No acute abnormality Reading Location: [facility] Assessment & Plan Assessment/Plan (1) Acute cystitis without hematuria: (2) Polypharmacy: (3) Toxic metabolic encephalopathy: (4) Morbid obesity with BMI of 40.0-44.9, adult: (5) Sleep apnea: QUALIFIERS: Sleep apnea type: unspecified type Qualified Code(s): G47.30 - Sleep apnea, unspecified (6) CPAP (continuous positive airway pressure) dependence: (7) Chronic osteoarthritis: (8) Chronic pain: QUALIFIERS: Chronic pain type: chronic pain syndrome Qualified Code(s): G89.4 - Chronic pain syndrome PLAN: Plan 1. UA positive for Acute Cystitis; without hematuria - Admit to PCU. We will treat with IV Azactam given patient's listed allergy to cephalexin and drug intolerance with quinolones potentially interacting with her other antidepressant medications. 2. Toxic/Metabolic Encephalopathy in the setting of Polypharmacy complicating #1 - Minimize MANGA ARTIST-active medications in an effort to allow sensorium to clear and then cut back both dose and frequency of medications that cannot be stopped to minimize the risk of serial readmission for this issue. 3. Morbid (class III) obesity; with BMI of 44.5 this admission on semaglutide plus SEDA; on BiPAP adding to the burden disease outlined in #1 & #2 - Weight loss will be recommended. Check TSH. This complicates her case and may hamper recovery. 4. OA; with chronic debility and chronic pain syndrome on prn oxycodone-acetaminophen BID adding to the medical complexity of #1 - #3 - PT/OT and Case Management to consult and treat on rounds in a.m. in case patient would benefit from subacute rehabilitation of help appreciated in advance. 5. Essential hypertension; on lisinopril, atenolol and prn clonidine - Continue home regimen plus give as needed IV hydralazine for systolic blood pressure greater than 1 or 60 mmHg. 6. Hyperlipidemia; on simvastatin - Resume statin check lipid profile. 7. Hypothyroidism; on levothyroxine - Maintain levothyroxine and check TSH. 8. Former tobacco abuse; (quit ~1993) - Noted. 9. DM-2; of unknown control on insulin glargine 52U sq q. PM and insulin lispro 40U sq TID AC - Cut long-acting insulin glargine dose by approximately 30%. Continue premeal insulin lispro as previous. Check hemoglobin A1c to objectively evaluate quality of diabetic control. 10. Diabetic neuropathy; on gabapentin TID - Resume gabapentin as previous. 11. History of DVT/PE; currently not on anticoagulation - Noted. 12. Migraine headaches; on prn sumatriptan - Give sumatriptan as needed if migraine headache should recur. 13. GERD; on omeprazole - Maintain PPI. 14. Depression with anxiety; on escitalopram, trazodone, lorazepam prn TID plus hydroxyzine q. HS - Hold lorazepam and hydroxyzine but continue escitalopram and trazodone as previous. 15. History of fibromyalgia; on MTX - Noted. 16. Muscle spasms; on tizanidine TID - Hold this agent until further notice. 17. DVT prophylaxis - Enoxaparin 40 mg subcu twice daily plus SCDs. Total time: Approximately (but not less than) 75 minutes. Charges/Coding Visit Charges Inpatient E&M: 10287 Init Hosp L3
[2025-03-15] MEDS: Smz/Tmp Ds Tablet 1 TABLET PO (21:17)
--- OUTSIDE RECORDS SUMMARY | 2025-03-15 21:36 | XMS RPT_ITS | CCD ---
Author Organization [facility] CliniSywy Care Team Providers Care Roofing Foreman Name Role Phone Manton Azra ELLIS Unavailable PB DRUMMOND DR Admitting Unavailable PB DRUMMOND DR Attending Unavailable PB DRUMMOND DR Primary Care Unavailable Shonda York Primary Care Provider Rica Padgett DO Primary Care Provider [phone] Rica Padgett Unavailable Jesus Amezquita Unavailable Silvana Henderson Unavailable Unavailable Dr. Rica Padgett Primary Care Provider Dr. oRscoe Helton Attending Provider Dr. Pj Mahoney Referring Provider [phone] Rica Padgett DO Primary Care Provider NICOLÁS AGGARWAL Referring Unavailable RICA PADGETT Primary Care Unavailable NICOLÁS AGGARWAL Attending Unavailable RICA PADGETT Primary Care Unavailable Dr. Rica Padgett Primary Care Provider Dr. Rica Padgett Referring Provider SAGE Ruiz Attending Provider Dr. Rica Padgett Primary Care Provider Dr. Rica Padgett Referring Provider SAGE Ruiz Attending Provider [phone] Marie Dee Emergency Provider Dr. Adebayo Mckeon Admit Provider [phone] Adebayo Mckeon Attending Provider Dr. Adebayo Mckeon Other Provider Dr. Tre Anderson Attending Provider Dr. Tre Anderson Other Provider Dr. Matt Oglesby Attending Provider Malys DO, Rica A Primary Care Provider [phone] AMISHYS , DR RICA Alonso Primary Care Physician PJ MAHONEY Attending Unavailable MALYS DO, DR RICA Alonso Primary Care Unavailable PJ MAHONEY Attending Unavailable MALYS DO, DR RICA Alonso Primary Care Unavailable PJ MAHONEY Attending Unavailable AMISHYS DO, DR RICA Alonso Primary Care Unavailable PJ MAHONEY Admitting Unavailable EDGAR GONZALEZ, MATTHEW Allan Consulting Unavailable PJ MAHONEY Referring Unavailable ERIC ASSEMBLER FINAL-DAY HABILITATION SPECIALIST, RICA Vargas Consulting Unavaila ble Malys DO, [...] gabapentin Drug Allergy 5 Mental Status Change [facility] Work Phone: Niacin (1 source) Niacin Drug Allergy 7 Rash, Hives, Itching [facility] (2 sources) gabapentin Drug Allergy 6 hives, light headed [facility] (1 source) gabapentin Drug Allergy Hives/Urticaria [facility] (8 sources) Cephalexin Drug Allergy 2 Other [facility] (16 sources) Niacin; Translations: [NIACIN] Drug Allergy 7 Rash, Hives, Itching [facility] (5 sources) gabapentin; Translations: [GABAPENTIN] Drug Allergy 5 Mental Status Change [facility] Work Phone: (2 sources) metFORMIN Drug Allergy 3 Diarrhea [facility] (3 sources) venlafaxine; Translations: [VENLAFAXINE] Drug Allergy 4 [facility] (2 sources) Niacin Drug Allergy 3 [facility] (1 source) Cephalexin Drug Allergy 5 [facility] (1 source) metFORMIN Drug Allergy 5 [facility] (1 source) Niacin Drug Allergy 5 [facility] (1 source) venlafaxine Drug Allergy 5 [facility] Repository Medications Current Medications Medication [...] 1 tab po q6h as needed HYDROCODONE-ACETAMINOPHEN [id number] Rica Padgett, acetaminophen 325 mg / oxyCODONE [...] affected area daily as needed DICLOFENAC SODIUM [id number] Rica Padgett, Diclofenac Sodiu m (Voltaren) 1 [...] MG TABS 1 po daily HYDROXYZINE HCL [id number] Rica Padgett DO Start: 08-30-2013 take 100 [...] 0 06/27/2023 Active Start: 12-08-2020 Leucovorin Jose Lius cium Active 5 MG PO FR December [...] 20 MG TABS 1 po daily RIVAROXABAN [id number] Adebayo Saunders DO take 2 tablets by [facility] once daily rivaroxaban (XARELTO) 10 mg [...] Drug Class(es) Dates Sig (Normalized) Sig (Original) [id number] actuat albuterol 0.09 mg/actuat metered dose [...] above: Take 1 tablet by [facility] twice daily. calcium chloride 0.0014 meq/ml [...] on above: Take by mouth. estrogens, conjugated (mcc) 0.625 mg/ml vaginal cream (8 sources) Estrogen [...] MG TABS 1 po daily LISINOPRIL-HYDROCHLOROTH IAZIDE [id number] Rica Padgett DO Start: 12-06-2014 End: 09-17-2022 [...] Interpretation Reference Range Facility MR/BMSNikhilBPon 03-11-2025 MR/BMSNikhilBP [address], [address] [place] [address] OFFICE VISIT Date of Service: 03/11/25 MR#: [id number] Acct: [id number] Name: FLEX WOOTEN Rep #: [id number] : 1960 Provider: Dr. Pj Anglin se, DO Age/Sex: 64/F Location: [facility].BP Status: Signed Intake Vital Signs 01/07/25 09:03 [...] you fallen in the past year?: Yes [employer] Medical History Diabetes mellitus with hyperglycemia HTN [...] disease Osteoarthrit (more content not included)... Normal [facility] Extremity Lower without Cont raon 02-09-2025 Extremity Lower without Contra [facility] Imaging Services [address] [place] [address] Extremity Lower without Contra MR#: [id number] Acct: [id number] Name: FLEX WOOTEN Rep #: [id number] : 1960 F 64 From: Bud Sadler DO PCP: Dr. Rica Padgett DO Status: REG CLI Study: Extremity Lower without Contra Date of Exam: 0 02/09/25 Exam# [id number] Ordering Dr: Rafi Berry DPJuliet PROCEDURE: EXTREMITY [...] maintained alignment and in position Reading [facility] CC: DPJuliet Berry; Dr. Rica Padgett DO Health Associate: Signed Normal [facility] CBC W/Diff, Automatedon 06 Absolute Lymph 2.35 X10 3/uL Normal 0.83-4.51 [facility] Comment on above: Performed By: #### L 501.080 #### [facility] [address] [place], [address] Absolute Neut 6.7 X10 3/uL Normal 2.0-7.7 [facility] Comment on above: Performed By: #### L 501.080 #### [facility] [address] [place], [address] Basophils/100 WBC (Bld) 0.6 % Normal 0-1 [facility] Comment on above: Performed By: #### L 501.080 #### [facility] [address] [place], [address] Eosinophils/100 WBC (Bld) 1.0 % Normal 0-5 [facility] Comment on above: Performed By: #### L 501.080 #### [facility] [address] [place], [address] Erythrocyte distribution width (RBC) [Ratio] 13.2 % Normal 11.6-14.6 [facility] Comment on above: Performed By: #### L 501.080 #### [facility] [address] [place], [address] Hematocrit (Bld) [Volume fraction] 43.4 % Normal 37-47 [facility] Comment on above: Performed By: #### L 501.080 #### [facility] [address] [place], [address] Hemoglobin (Bld) [Mass/Vol] 14.5 g/dL Normal 12.0-15.0 [facility] Comment on above: Performed By: #### L 501.080 #### [facility] [address] [place], [address] IG% 0.500 Normal 0.0-0.9 [facility] Comment on above: Result Comment: IG% - Immature Granulocytes (promyelocytes, myelocytes and metamyelocytes) > 1% indicates that a LEFT SHIFT is Present. Performed By: #### L 501.080 #### [facility] [address] [facility] [place], [address] Lymphocytes/100 WBC (Bld) 24.2 % Normal 19-41 [facility] Comment on above: Performed By: #### L 501.080 #### [facility] [address] [place], [address] MCH (RBC) [Entitic mass] 29.4 pg Normal 27.0-32.0 [facility] Comment on above: Performed By: #### L 501.080 #### [facility] [address] [place], [address] MCHC (RBC) [Mass/Vol] 33.4 g/dL Normal 32-36 [facility] Comment on above: Performed By: #### L 501.080 #### [facility] [address] [place], [address] MCV (RBC) [Entitic vol] 87.9 fL Normal 81-99 [facility] Comment on above: Performed By: #### L 501.080 #### [facility] [address] [place], [address] Monocytes/100 WBC (Bld) 5.1 % Normal 0-10 [facility] Comment on above: Performed By: #### L 501.080 #### [facility] [address] [place], [address] Neutrophils/100 WBC (Bld) 68.6 % Normal 47-70 [facility] Comment on above: Performed By: #### L 501.080 #### [facility] [address] [place], [address] Nucleated RBC (Bld) [#/Vol] 0 10*3/uL Normal 0-5 [facility] Comment on above: Performed By: #### L 501.080 #### [facility] [address] [place], [address] Platelet mean volume (Bld) [Entitic vol] 9.6 fL Normal 6.2-12.0 [facility] Comment on above: Performed By: #### L 501.080 #### [facility] [address] [place], [address] Platelets (Bld) [#/Vol] 251 10*3/uL Normal 150-450 [facility] Comment on above: Performed By: #### L 501.080 #### [facility] [address] [place], [address] RBC (Bld) [#/Vol] 4.94 10*6/uL Normal 4.2-5.4 [facility] Comment on above: Performed By: #### L 501.080 #### [facility] [address] [place], [address] RDW SD 41.8 fl Normal 35.1-43.9 [facility] Comment on above: Performed By: #### L 501.080 #### [facility] [address] [place], [address] WBC (Bld) [#/Vol] 9.7 10*3/uL Normal 4.4-11.0 [facility] Comment on above: Performed By: #### L 501.080 #### [facility] [address] [place], [address] CRPon 02-04-2025 C-REACTIVE PROT 11.80 mg/L High 0.0-3.0 [facility] Comment on above: Performed By: #### L 100.0100, L501.1400, L101.9900, L501.6710, L501.75808, L501.5200, L506.0400, L500.4050, L501.9520, L501.2450 ####[facility] [address] [place], [address] Comprehensive Metabolic Prof ilon 02-04-2025 Albumin [Mass/Vol] 4.3 g/dL Normal 3.4-4.8 [facility] Comment on above: Performed By: #### L 501.080 #### [facility] [address] [place], [address] Albumin/Globulin [Mass ratio] 1.4 {ratio} Normal 0.9-2.4 [facility] Comment on above: Performed By: #### L 501.080 #### [facility] [address] [place], [address] ALK PHOS 112 U/L High 35-104 [facility] Comment on above: Performed By: #### L 501.080 #### [facility] [address] [place], [address] ALT [Catalytic activity/Vol] 80 U/L High <=34 [facility] Comment on above: Performed By: #### L 501.080 #### [facility] [address] [place], [address] AST [Catalytic activity/Vol] 60 U/L High <=31 [facility] Comment on above: Performed By: #### L 501.080 #### [facility] [address] [place], [address] Bilirubin [Mass/Vol] 0.40 mg/dL Normal 0.00-1.30 [facility] Comment on above: Performed By: #### L 501.080 #### [facility] [address] [place], [address] BUN/CRE 13.8 RATIO Normal 10-20 [facility] Comment on above: Performed By: #### L 501.080 #### [facility] [address] [place], [address] Calcium [Mass/Vol] 9.5 mg/dL Normal 7.6-11.0 [facility] Comment on above: Performed By: #### L 501.080 #### [facility] [address] [place], [address] Chloride [Moles/Vol] 101 mmol/L Normal 98-108 [facility] Comment on above: Performed By: #### L 501.080 #### [facility] [address] [place], [address] CO2 [Moles/Vol] 24.5 mmol/L Normal 21.0-32.0 [facility] Comment on above: Performed By: #### L 501.080 #### [facility] [address] [place], [address] Creatinine [Mass/Vol] 0.78 mg/dL Normal 0.70-1.20 [facility] Comment on above: Performed By: #### L 501.080 #### [facility] [address] [place], [address] GAP 16 High 5-15 [facility] Comment on above: Performed By: #### L 501.080 #### [facility] [address] [place], [address] GFR/1.73 sq M.predicted among non-blacks MDRD (S/P/Bld) [Vol rate/Area] 84 mL/min/{1.73_m2} Normal >60 [facility] Comment on above: Result Comment: mL/m in/1.73m2 CKD-EPI Creatinine Equation (2020) Performed By: #### L 501.080 #### [facility] [address] [place], [address] Globulin (S) [Mass/Vol] 3.1 g/dL Normal 2.2-4.2 [facility] Comment on above: Performed By: #### L 501.080 #### [facility] [address] [place], [address] Glucose [Mass/Vol] 247 mg/dL High 70-99 [facility] Comment on above: Performed By: #### L 501.080 #### [facility] [address] [place], [address] Potassium [Moles/Vol] 4.6 mmol/L Normal 3.3-5.1 [facility] Comment on above: Performed By: #### L 501.080 #### [facility] [address] [place], [address] Sodium [Moles/Vol] 141 mmol/L Normal 133-145 [facility] Comment on above: Performed By: #### L 501.080 #### [facility] [address] [place], [address] T PROT 7.4 g/dL Normal 5.9-8.4 [facility] Comment on above: Performed By: #### L 501.080 #### [facility] [address] [place], [place], [address] Urea nitrogen [Mass/Vol] 11 mg/dL Normal 4-19 [facility] Comment on above: Performed By: #### L 501.080 #### [facility] [address] [place], [place], [address] Erythrocyte Sed Rateon 02-04 SED RATE 7 mm/hr Normal 0-30 [facility] Comment on above: Performed By: #### L 501.080 #### [facility] [address] [place], [address] Free T3on 02-04-2025 Free T3 [Mass/Vol] 2.4 pg/mL Normal 2.18-3.98 [facility] Comment on above: Performed By: #### L 100.0100, L501.1400, L101.9900, L501.6710, L501.03846, L501.5200, L506.0400, L500.4050, L501.9520, L501.2450 ####[facility] [address] [place], [place], [address] Lipaseon 02-04-2025 Lipase [Catalytic activity/Vol] 42 U/L Normal 13-75 [facility] Comment on above: Result Comment: Sherri martinez note: LIPASE revised reference range effective 22. New Lipase methodology. Expected to produce lower values than the previous assay method. NEW Reference Range: 13 - 75 U/L Performed By: #### L 501.080 #### [facility] [address] [place], [address] Magnesiumon 02-04-2025 Magnesium [Mass/Vol] 1.8 mg/dL Normal 1.5-2.2 [facility] Comment on above: Performed By: #### L 100.0100, L501.1400, L101.9900, L501.6710, L501.13360, L501.5200, L506.0400, L500.4050, L501.9520, L501.2450 ####[facility] [address] [place], [place], [address] T4 Free Directon 02-04-2025 T4 FREE DIRECT 1.20 ng/dL Normal 0.76-1.46 [facility] Comment on above: Performed By: #### L 100.0100, L501.1400, L101.9900, L501.6710, L501.52655, L501.5200, L506.0400, L500.4050, L501.9520, L501.2450 ####[facility] [address] [place], [address] Thyroid Stim Hormone (TSH)on 02-04-2025 TSH 0.755 uIU/mL Normal 0.300-4.200 [facility] Comment on above: Performed By: #### L 100.0100, L501.1400, L101.9900, L501.6710, L501.91364, L501.5200, L506.0400, L500.4050, L501.9520, L501.2450 ####[facility] [address] [place], [place], [address] Uric Acidon 02-04-2025 URIC 6.8 mg/dL High 2.6-6.0 [facility] Comment on above: Result Comment: The drugs N-Acetylcysteine and Metamizole may falsely depress this assay. Performed By: #### L 501.080 #### [facility] [address] [place], [address] MR/BMS.BPon 01-07-2025 MR/BMS.BP [address], [address] [place] [address] OFFICE VISIT Date of Service: 01/07/25 MR#: [id number] Acct: [id number] Name: FLEX WOOTEN Rep #: [id number] : 1960 Provider: Dr. Pj Anglin se, DO Age/Sex: 64/F Location: [facility] [place].BP Status: Signed Intake Vital Signs 09/03/24 11:09 [...] thrombosis) History (more content not included)... Normal [facility] Basic Metabolic Profile (BMP )on 01-03-2025 BUN/CRE 18.4 RATIO Normal 10-20 [facility] Comment on above: Performed By: #### L 500.2500, L506.1001 #### [facility] [address] [place], [address] Calcium [Mass/Vol] 8.7 mg/dL Normal 7.6-11.0 [facility] Comment on above: Performed By: #### L 500.2500, L506.1001 #### [facility] [address] [place], [address] Chloride [Moles/Vol] 100 mmol/L Normal 98-108 [facility] Comment on above: Performed By: #### L 500.2500, L506.1001 #### [facility] [address] [place], [address] CO2 [Moles/Vol] 25.8 mmol/L Normal 21.0-32.0 [facility] Comment on above: Performed By: #### L 500.2500, L506.1001 #### [facility] [address] [place], [address] Creatinine [Mass/Vol] 0.71 mg/dL Normal 0.70-1.20 [facility] Comment on above: Performed By: #### L 500.2500, L506.1001 #### [facility] [address] [place], [address] GAP 12 Normal 5-15 [facility] Comment on above: Performed By: #### L 500.2500, L506.1001 #### [facility] [address] [place], [address] GFR/1.73 sq M.predicted among non-blacks MDRD (S/P/Bld) [Vol rate/Area] 94 mL/min/{1.73_m2} Normal >60 [facility] Comment on above: Result Comment: mL/m in/1.73m2 CKD-EPI Creatinine Equation (2020) Performed By: #### L 500.2500, L506.1001 #### [facility] [address] [place], [address] Glucose [Mass/Vol] 293 mg/dL High 70-99 [facility] Comment on above: Performed By: #### L 500.2500, L506.1001 #### [facility] [address] [place], [address] Potassium [Moles/Vol] 4.8 mmol/L Normal 3.3-5.1 [facility] Comment on above: Performed By: #### L 500.2500, L506.1001 #### [facility] [address] [place], [address] Sodium [Moles/Vol] 138 mmol/L Normal 133-145 [facility] Comment on above: Performed By: #### L 500.2500, L506.1001 #### [facility] [address] [place], [address] Urea nitrogen [Mass/Vol] 13 mg/dL Normal 4-19 [facility] Comment on above: Performed By: #### L 500.2500, L506.1001 #### [facility] [address] [place], [address] Vitamin D,25 Hydroxyon 01-03 Vitamin D 25-OH 32.3 ng/mL Normal 30-100 [facility] Comment on above: Result Comment: Ashley min D Status Deficiency: <20 ng/mL (50nmol/L) Insufficiency: 20-30 ng/mL (50-75 nmol/L) Sufficiency: 30-100 ng/mL (75-250 nmol/L) Toxicity: >100 ng/mL (>250 nmol/L) Performed By: #### L 500.2500, L5061008 #### [facility] [address] [place], [address] Echo Complete W/ Contraston 11-29-2024 Echo Complete W/ Contrast [facility] Cardiovascular Services [address] [place] [address] Echo Complete W/ Contrast 11/29/24 1411 MR#: [id number] Acct: [id number] Name: FLEX WOOTEN Rep #: [id number] : 1960 64 From: Matt Oglesby MD Attending Dr: Dr. Deuce Shaw MD Status: REG CLI Ordering Dr: Deuce Shaw MD Date: 11/29/24 Location: [facility] Sex: F C Admitted: Reason For Study [...] Date Dictated: 11/29/24 1411 Date Transcribed: 11/29/241656 Health Associate: Signed Normal [facility] Brain/Head without Contrasto n 11-20-2024 Brain/Head without Contrast [facility] Imaging Services [address] [place] [address] Brain/Head without Contrast MR#: [id number] Acct: [id number] Name: FLEX WOOTEN Rep #: [id number] : 1960 F 64 From: Deuce Thompson MD PCP: Dr. Rica Padgett DO Status: PRE ER Study: Brain/Head without Contrast Date of Exam: 10/28 01/20 Exam# [id number] Ordering Dr: Tre Flores DO EXAM: Noncontrast [...] mass effect or calvarial fracture. Reading Location: [facility] CC: Dr. Tre Flores DO; Dr. Rica Padgett DO Health Associate: Signed Normal [facility] Emergency Department Summary on 11-20-2024 Emergency Department Summary [facility] Medical Records Department [address] [place] [address] Emergency Department Summary 11/20/24 MR#: [id number] Acct: [id number] Name: FLEX WOOTEN Rep #: [id number] : 1960 64 From: Tre Flores DO [...] or weakness. Patient denies any other injuries. [facility] Medical History Diabetes mellitus with [...] kit insulin (more content not included)... Normal [facility] Lumbar Spine 2 or 3 Viewson 11-20-2024 Lumbar Spine 2 or 3 Views [facility] Imaging Services [address] [place], [place] [address] Lumbar Spine 2 or 3 Views MR#: [id number] Acct: [id number] Name: FLEX WOOTEN Rep #: [id number] : 1960 F 64 From: Deuce Thompson MD PCP: Dr. Rica Padgett, Status: PRE ER Study: Lumbar Spine 2 or 3 Views Date of Exam: Exam# [id number] Ordering Dr: Tre Flores DO EXAM: Lumbar spine 2 or three views x-ray CLINICAL HISTORY: Injury, pain COMPARISON: 05/14/[address] 07/28/2024 TECHNIQUE: Three views lumbosacral spine, AP, lateral and coned-down view FINDINGS: 5 eaz-bhq-[id number] lumbar vertebral type bodies again identified. No [...] and spondylosis/discogenic change as above. Reading Location: [facility] CC: Dr. Tre Flores DO; Dr. Rica Padgett DO Health Associate: Signed Normal [facility] Spine Cervical without Contr ason 11-20-2024 Spine Cervical without Contras [facility] Imaging Services [address] [place], [place] [address] Spine Cervical without Contras MR#: [id number] Acct: [id number] Name: FLEX WOOTEN Rep #: [id number] : 1960 F 64 From: Deuce Thompson MD PCP: Dr. Rica Padgett DO Status: PRE ER Study: Spine Cervical without Contras Date of Exam: 0 11/20/24 Exam# [id number] Ordering Dr: Tre Flores DO EXAM: Cervical [...] IMPRESSION: No fracture or malalignment. Reading Location: [facility] CC: Dr. Tre Flores DO; Dr. Rica Padgett DO Health Associate: Signed Normal [facility] Thoracic Spine 3 Viewson Thoracic Spine 3 Views [facility] Imaging Services [address] [place] [address] Thoracic Spine 3 Views MR#: [id number] Acct: [id number] Name: FLEX WOOTEN Rep #: [id number] : 1960 F 64 From: Deuce Thompson MD PCP: Dr. Rica Padgett DO Status: PRE ER Study: Thoracic Spine 3 Views Date of Exam: 11/20/24 Exam# [id number] Ordering Dr: Tre Flores DO EXAM: Thoracic spine x-ray CLINICAL HISTORY: Injury, pain COMPARISON: 09/17/2019 TECHNIQUE: AP and lateral views of the thoracic spine FINDINGS: No fracture or malalignment identified. The disc spaces appear within limits. Spondylosis and DISH. RAD/Thoracic Spine 3 Views IMPRESSION: No fracture or malalignment identified. Reading Location: [facility] CC: Dr. Tre Flores DO; Dr. Rica Padgett DO Health Associate: Signed Normal [facility] Endocrinology Visit Reporton 11-19-2024 Endocrinology Visit Report [facility] [address] [facility] [place] [address] OFFICE VISIT Date of Service: 11/19/24 MR#: [id number] Acct: [id number] Name: FLEX WOOTEN Rep #: [id number] : 1960 Provider: SAGE hernandez Age/Sex: 64/F Location[place] [facility] Status: Signed Intake Vital Signs 10/08/24 11:17 [...] present Mixe (more content not included)... Normal [facility] Emergency Department Summary on 10-15-2024 Emergency Department Summary [facility] Medical Records Department [address] [place] [address] Emergency Department Summary 10/15/24 MR#: [id number] Acct: [id number] Name: FLEX WOOTEN Rep #: [id number] : 1960 64 From: Della COX PCP: [...] chills, neck pain, paresthesias, and head injury. [facility] Medical History Diabetes mellitus with [...] 10/21/23 Unknown (more content not included)... Normal [facility] Emergency Department Summary on 10-12-2024 Emergency Department Summary [facility] Medical Records Department [address] [place] [address] Emergency Department Summary 10/12/24 MR#: [id number] Acct: [id number] Name: FLEX WOOTEN Rep #: [id number] : 1960 64 From: Uday Stokes MD [...] similar symptoms: Yes Recent Illness/Hospitalization : Yes [facility] Medical History Diabetes mellitus with hyperglycemia [...] Unknown Rx (more content not included)... Normal [facility] Endocrinology Visit Reporton 10-08-2024 Endocrinology Visit Report [facility] [address] [facility] [place] [id number] OFFICE VISIT Date of Service: 10/08/24 MR#: [id number] Acct: [id number] Name: FLEX WOOTEN Rep #: [id number] : 1960 Provider: SAGE hernandez Age/Sex: 64/F Location: [facility] Status: Signed Intake Vital Signs 06/06/24 11:10 [...] calcifications M (more content not included)... Normal [facility] MR/BMS.BPon 09-03-2024 MR/BMS.BP [facility] [address], [address] [place] [address] OFFICE VISIT Date of Service: 09/03/24 MR#: [id number] Acct: [id number] Name: FLEX WOOTEN Rep #: [id number] : 1960 Provider: Dr. Pj Anglin se, DO Age/Sex: 64/F Location: [facility] [place] Status: Signed Intake Vital Signs 05/07/24 11:31 [...] balancing Fa (more content not included)... Normal [facility] Bedside Glucoseon 07-28-2024 FINGERSTICK GLU 200 mg/dL High [address] [facility] Comment on above: Result Comment: MARCELLA GEMENT OF PATIENT CARE PER NURSING PROTOCOL Performed By: #### L 506.1000, L503.0105, L503.6150, L100.0100, L506.0400, L500.4050, L503.6550, L501.9520 #### [facility] [address] [place], [address] FINGERSTICK GLU 202 mg/dL High [address] [facility] Comment on above: Result Comment: MARCELLA GEMENT OF PATIENT CARE PER NURSING PROTOCOL Performed By: #### L 501.080 #### [facility] [address] [place], [address] FINGERSTICK GLU 233 mg/dL High [facility]106 [facility] Comment on above: Result Comment: MARCELLA GEMENT OF PATIENT CARE PER NURSING PROTOCOL Performed By: #### L 500.2500, L506.1001 #### [facility] [address] [place], [address] Spine Lumbar without Contras ton 07-28-2024 Spine Lumbar without Contrast [facility] Imaging Services [address] [place] [address] Spine Lumbar without Contrast MR#: [id number] Acct: [id number] Name: FLEX WOOTEN Rep #: [id number] : 1960 F 64 From: Dru Stanford MD PCP: Dr. Rica Padgett DO Status: ADM LATRICIA Study: Spine Lumbar without Contrast Date of Exam: Exam# [id number] Ordering Dr: [place] [id number] EXAM: CT LUMBAR SPINE WITHOUT INTRAVENOUS CONTRAST [...] 11:46 EST Reading Location ID and State: [facility] / [place] Tel , Service support , CC: Dr. Tre Anderson DO; Dr. Rica Padgett DO Health Associate: Signed Normal [facility] 12 Lead EKGon 07-27-2024 12 Lead EKG [facility] Cardiovascular Services [address] [place] [address] 12 Lead EKG 07/27/24 1649 MR#: [id number] Acct: [id number] Name: FLEX WOOTEN Rep #: [id number] : 1960 64 From: Wilbert Ba MD Attending Dr: Dr. Tre Anderson DO Status: DIS LATRICIA Ordering Dr: Rica Pardo Date: 07/27/24 Location: MD3 Sex: F C Admitted: 07/27/24 Test Reason [...] undetermined Abnormal ECG Confirmed by Wilbert Ba ([id number]), scientific publications editor GLADIS JENKINS ([id number]) on 07/30/2024 11:30:25 AM Referred By: Confirmed By: Wilbert Ba 07/30/24 1130 Date Wilbert Ba MD CC: Dr. Tre Anderson DO; Dr. Rica Padgett DO; KENNY Hinkle Signed Normal [facility] Basic Metabolic Profile (BMP )on 07-27-2024 BUN/CRE 14.0 RATIO Normal 06-17 [facility] Comment on above: Performed By: #### L 500.2500, L506.1001 #### [facility] [address] [place], [address] CA,Total 8.9 mg/dL Normal 8.5-10.1 [facility] Comment on above: Performed By: #### L 500.2500, L506.1001 #### [facility] [address] [place], [address] Chloride [Moles/Vol] 99 mmol/L Normal 98-107 [facility] Comment on above: Performed By: #### L 500.2500, L506.1001 #### [facility] [address] [place], [address] CO2 [Moles/Vol] 30.0 mmol/L Normal 21.0-32.0 [facility] Comment on above: Performed By: #### L 500.2500, L506.1001 #### [facility] [address] [place], [address] Creatinine [Mass/Vol] 1.00 mg/dL Normal 0.55-1.02 [facility] Comment on above: Result Comment: The validity of the calculated GFR GFRAA in patients over 70 years has not been determined. Clinical correlation is essential. Performed By: #### L 500.2500, L506.1001 #### [facility] [address] [place], [address] ECRCL 69.70 ml/min Normal [facility] Comment on above: Performed By: #### L 500.2500, L506.1001 #### [facility] [address] [place], [address] EST GFR - AA 71 mL/min Normal >60 [facility] Comment on above: Result Comment: Afri can German GFR Calc Performed By: #### L 500.2500, L506.1001 #### [facility] [address] [place], [address] GAP 7 Normal 5-15 [facility] Comment on above: Performed By: #### L 500.2500, L506.1001 #### [facility] [address] [place], [address] GFR/1.73 sq M.predicted among non-blacks MDRD (S/P/Bld) [Vol rate/Area] 59 mL/min/{1.73_m2} Low >60 [facility] Comment on above: Result Comment: Non- GFR Calc Performed By: #### L 500.2500, L506.1001 #### [facility] [address] [place], [address] Glucose [Mass/Vol] 421 mg/dL High 74-106 [facility] Comment on above: Result Comment: Gluc ose result greater than or equal to 200 mg/dL suggests DIABETES MELLITUS per A.D.A. criteria. Performed By: #### L 500.2500, L506.1001 #### [facility] [address] [place], [address] Potassium [Moles/Vol] 4.6 mmol/L Normal 3.5-5.1 [facility] Comment on above: Result Comment: Slig ht Hemolysis, Result may be falsely increased. Performed By: #### L 500.2500, L506.1001 #### [facility] [address] [place], [address] Sodium [Moles/Vol] 135 mmol/L Low 136-145 [facility] Comment on above: Performed By: #### L 500.2500, L506.1001 #### [facility] [address] [place], [address] Urea nitrogen [Mass/Vol] 14 mg/dL Normal 7-18 [facility] Comment on above: Performed By: #### L 500.2500, L506.1001 #### [facility] [address] [place], [address] Bedside Glucoseon 07-27-2024 FINGERSTICK GLU 290 mg/dL High 74-106 [facility] Comment on above: Result Comment: MARCELLA AGUILAR OF PATIENT CARE PER NURSING PROTOCOL Performed By: #### L 500.2500, L506.1001 #### [facility] [address] [place], [address] FINGERSTICK GLU 360 mg/dL High 74-106 [facility] Comment on above: Result Comment: MARCELLA AGUILAR OF PATIENT CARE PER NURSING PROTOCOL Performed By: #### L 500.2500, L506.1001 #### [facility] [address] [place], [address] CBC W/Diff, Automatedon 11-2 -2023 Absolute Lymph 2.09 X10 3/uL Normal 0.83-4.51 [facility] Comment on above: Performed By: #### L 500.2500, L506.1001 #### [facility] [address] [place], [address] Absolute Neut 4.9 X10 3/uL Normal 2.0-7.7 [facility] Comment on above: Performed By: #### L 500.2500, L506.1001 #### [facility] [address] [place], [address] Basophils/100 WBC (Bld) 0.4 % Normal 0-1 [facility] Comment on above: Performed By: #### L 500.2500, L506.1001 #### [facility] [address] [place], [address] Eosinophils/100 WBC (Bld) 1.8 % Normal 0-5 [facility] Comment on above: Performed By: #### L 500.2500, L506.1001 #### [facility] [address] [place], [address] Erythrocyte distribution width (RBC) [Ratio] 13.5 % Normal 11.6-14.6 [facility] Comment on above: Performed By: #### L 500.2500, L506.1001 #### [facility] [address] [place], [address] Hematocrit (Bld) [Volume fraction] 44.6 % Normal 37-47 [facility] Comment on above: Performed By: #### L 500.2500, L506.1001 #### [facility] [address] [place], [address] Hemoglobin (Bld) [Mass/Vol] 14.2 g/dL Normal 12.0-15.0 [facility] Comment on above: Performed By: #### L 500.2500, L506.1001 #### [facility] [address] [place], [address] IG% 0.500 Normal 0.0-0.9 [facility] Comment on above: Result Comment: IG% - Immature Granulocytes (promyelocytes, myelocytes and metamyelocytes) > 1% indicates that a LEFT SHIFT is Present. Performed By: #### L 500.2500, L506.1001 #### [facility] [address] [place], [address] Lymphocytes/100 WBC (Bld) 27.5 % Normal 19-41 [facility] Comment on above: Performed By: #### L 500.2500, L506.1001 #### [facility] [address] [place], [address] MCH (RBC) [Entitic mass] 28.9 pg Normal 27.0-32.0 [facility] Comment on above: Performed By: #### L 500.2500, L506.1001 #### [facility] [address] [place], [address] MCHC (RBC) [Mass/Vol] 31.8 g/dL Low 32-36 [facility] Comment on above: Performed By: #### L 500.2500, L506.1001 #### [facility] [address] [place], [address] MCV (RBC) [Entitic vol] 90.7 fL Normal 81-99 [facility] Comment on above: Performed By: #### L 500.2500, L506.1001 #### [facility] [address] [place], [address] Monocytes/100 WBC (Bld) 5.5 % Normal 0-10 [facility] Comment on above: Performed By: #### L 500.2500, L506.1001 #### [facility] [address] [place], [address] Neutrophils/100 WBC (Bld) 64.3 % Normal 47-70 [facility] Comment on above: Performed By: #### L 500.2500, L506.1001 #### [facility] [address] [place], [address] Nucleated RBC (Bld) [#/Vol] 0 10*3/uL Normal 0-5 [facility] Comment on above: Performed By: #### L 500.2500, L506.1001 #### [facility] [address] [place], [address] Platelet mean volume (Bld) [Entitic vol] 9.3 fL Normal 6.2-12.0 [facility] Comment on above: Performed By: #### L 500.2500, L506.1001 #### [facility] [address] [place], [address] Platelets (Bld) [#/Vol] 234 10*3/uL Normal 150-450 [facility] Comment on above: Performed By: #### L 500.2500, L506.1001 #### [facility] [address] [place], [address] RBC (Bld) [#/Vol] 4.92 10*6/uL Normal 4.2-5.4 [facility] Comment on above: Performed By: #### L 500.2500, L506.1001 #### [facility] [address] [place], [address] RDW SD 44.1 fl High 35.1-43.9 [facility] Comment on above: Performed By: #### L 500.2500, L506.1001 #### [facility] [address] [place], [address] WBC (Bld) [#/Vol] 7.6 10*3/uL Normal 4.4-11.0 [facility] Comment on above: Performed By: #### L 500.2500, L506.1001 #### [facility] [address] [place], [address] CTA Chest W/WO Contraston CTA Chest W/WO Contrast [facility] Imaging Services [address] [place] [address] CTA Chest W/WO Contrast MR#: [id number] Acct: [id number] Name: FLEX WOOTEN Rep #: [id number] : 1960 F 64 From: Rafi Bajwa MD PCP: Dr. Rica Padgett, DO Status: [facility] ER Study: CTA Chest W/WO Contrast Date of Exam: 07/27/24 Exam# [id number] Ordering Dr: Rica Pardo [id number] STUDY: CTA CHEST REASON FOR EXAM: Female, [...] 18:45 EST Reading Location ID and State: [address] [place] [address] Tel , Service support , CC: Dr. Rica Padgett DO; KENNY Hinkle Health Associate: Signed Normal [facility] Chest PA and Lateralon 07-27 Chest PA and Lateral [facility] Imaging Services [address] [place] [address] Chest PA and Lateral MR#: [id number] Acct: [id number] Name: FLEX WOOTEN Rep #: [id number] : 1960 F 64 From: Rafi Bajwa MD PCP: Dr. Rica Padgett DO Status: REG ER Study: Chest PA and Lateral Date of Exam: 07/27/24 Exam# [id number] Ordering Dr: Rica Pardo [id number] STUDY: X-RAY CHEST REASON FOR EXAM: Female, [...] 17:03 EST Reading Location ID and State: [address] [place] [address] Tel , Service support , CC: Dr. Rica Padgett DO; KENNY Hinkle Health Associate: Signed Normal [facility] Emergency Department Summary on 07-27-2024 Emergency Department Summary [facility] Medical Records Department [address] [place] [address] Emergency Department Summary 07/27/24 MR#: [id number] Acct: [id number] Name: FLEX WOOTEN Rep #: [id number] : 1960 64 From: Rica COX PCP: Dr. Rica Padgett DO Status:ADM LATRICIA Location: [address] History of Present Illness Chief Complaint: [...] has no weakness or numbness or tingling. [facility] Medical History (Updated 07/27/24 @ 19:02 by [...] Itching Verified (more content not included)... Normal [facility] H AND P Exam - Hospitaliston 07-27-2024 H&P Exam - Hospitalist [facility] Medical Records Department [address] [place] [address] H P Exam - Hospitalist 07/27/241915 MR#: [id number] Acct: [id number] Name: FLEX WOOTEN Rep #: [id number] : 1960 64 From: David Caruso DO PCP: Dr. Rica Padgett, DO Status:ADM LATRICIA Location: MD3 OL245-4 HPI - General General Date of Admission: 07/27/24 Date of Service: 07/27/24 Chief Complaint: Fatigue with hypoxia HPI Narrative FLEX WOOTEN, is a 64 F who presented to [facility] ED on 07/27/2024 with 1 week [...] medication changes after discussion with her psychiatrist. [facility] Medical History (Updated 07/27/24 @ 20:24 by [...] pain Gastr (more content not included)... Normal [facility] L501.4020on 07-27-2024 TROPONIN-I HS 5 pg/mL Normal 3.0-54.0 [facility] Comment on above: Order Comment: 'TROP ' Serial specimen #1, #2 or #3: 1 Result Comment: Sherri martinez Note: New Test Units and Gender Specific Reference Ranges. For more information see Policy Stat Procedure [place] High Sensitivity Troponin (TNIH) and attachments. Performed By: #### L 506.1000, L503.0105, L503.6150, L100.0100, L506.0400, L500.4050, L503.6550, L501.9520 #### [facility] [place], [address] Miscellaneous Lab Procedureo n 07-19-2024 [facility] TEST Normal [facility] Comment on above: Order Comment: [...] UR Oxymorphone Negative 300 TESTING PERFORMED AT [facility]. ORIGINAL REPORT ON FILE IN LAB CONTAINS ADDITIONAL TEST SITE INFORMATION. Performed By: #### L 506.1000, L503.0105, L503.6150, L100.0100, L506.0400, L500.4050, L503.6550, L501.9520 #### [facility] [address] [place], [address] Urinalysis, Routine (Dipstic k)on 07-13-2024 BILIRUBIN URINE Negative Normal Negative [facility] Comment on above: Order Comment: CLEAN CATCH Performed By: #### L 506.1000, L503.0105, L503.6150, L100.0100, L506.0400, L500.4050, L503.6550, L501.9520 #### [facility] [address] [place], [address] Clarity (U) Clear Normal Clear [facility] Comment on above: Order Comment: CLEAN CATCH Performed By: #### L 506.1000, L503.0105, L503.6150, L100.0100, L506.0400, L500.4050, L503.6550, L501.9520 #### [facility] [address] [place], [address] Color (U) Yellow Normal Yellow [facility] Comment on above: Order Comment: CLEAN CATCH Performed By: #### L 506.1000, L503.0105, L503.6150, L100.0100, L506.0400, L500.4050, L503.6550, L501.9520 #### [facility] [address] [place], [address] GLUCOSE, UR Normal Normal Normal [facility] Comment on above: Order Comment: CLEAN CATCH Performed By: #### L 506.1000, L503.0105, L503.6150, L100.0100, L506.0400, L500.4050, L503.6550, L501.9520 #### [facility] [address] [place], [address] KETONE UR Negative Normal Negative [facility] Comment on above: Order Comment: CLEAN CATCH Performed By: #### L 506.1000, L503.0105, L503.6150, L100.0100, L506.0400, L500.4050, L503.6550, L501.9520 #### [facility] [address] [place], [address] LEUK ESTERASE 25 /ul Abnormal Negative [facility] Comment on above: Order Comment: CLEAN CATCH Performed By: #### L 506.1000, L503.0105, L503.6150, L100.0100, L506.0400, L500.4050, L503.6550, L501.9520 #### [facility] [address] [place], [address] Nitrite Ql (U) Negative Normal Negative [facility] Comment on above: Order Comment: CLEAN CATCH Performed By: #### L 506.1000, L503.0105, L503.6150, L100.0100, L506.0400, L500.4050, L503.6550, L501.9520 #### [facility] [address] [place], [address] OCCULT BLOOD-UR Negative Normal Negative [facility] Comment on above: Order Comment: CLEAN CATCH Performed By: #### L 506.1000, L503.0105, L503.6150, L100.0100, L506.0400, L500.4050, L503.6550, L501.9520 #### [facility] [address] [place], [address] pH UR 6.0 Normal 5.0 - 8.0 [facility] Comment on above: Order Comment: CLEAN CATCH Performed By: #### L 506.1000, L503.0105, L503.6150, L100.0100, L506.0400, L500.4050, L503.6550, L501.9520 #### [facility] [address] [place], [address] PROT DIPSTX Negative Normal Negative [facility] Comment on above: Order Comment: CLEAN CATCH Performed By: #### L 506.1000, L503.0105, L503.6150, L100.0100, L506.0400, L500.4050, L503.6550, L501.9520 #### [facility] [address] [place], [address] SP.GR. DIPSTX 1.020 Normal 1.002-1.030 [facility] Comment on above: Order Comment: CLEAN CATCH Performed By: #### L 506.1000, L503.0105, L503.6150, L100.0100, L506.0400, L500.4050, L503.6550, L501.9520 #### [facility] [address] [place], [place], [id number] [phone] UROBILI Normal Normal Normal [facility] Comment on above: Order Comment: CLEAN CATCH Performed By: #### L 506.1000, L503.0105, L503.6150, L100.0100, L506.0400, L500.4050, L503.6550, L501.9520 #### [facility] [address] [place], [address] Urine Drug Screen (VISTA)on 07-13-2024 AMPHETAMINES Negative Normal <1000 ng/mL [facility] Comment on above: Order Comment: MEDTO X Performed By: #### L 506.1000, L503.0105, L503.6150, L100.0100, L506.0400, L500.4050, L503.6550, L501.9520 #### [facility] [address] [place], [place], [id number] BARBITIURATES Negative Normal < 200 ng/mL [facility] Comment on above: Order Comment: MEDTO X Performed By: #### L 506.1000, L503.0105, L503.6150, L100.0100, L506.0400, L500.4050, L503.6550, L501.9520 #### [facility] [address] [place], [address] BENZODIAZIPINE Negative Normal < 200 ng/mL [facility] Comment on above: Order Comment: MEDTO X Performed By: #### L 506.1000, L503.0105, L503.6150, L100.0100, L506.0400, L500.4050, L503.6550, L501.9520 #### [facility] [address] [place], [address] COCAINE Negative Normal < 300 ng/mL [facility] Comment on above: Order Comment: MEDTO X Performed By: #### L 506.1000, L503.0105, L503.6150, L100.0100, L506.0400, L500.4050, L503.6550, L501.9520 #### [facility] [address] [place], [address] ECSTACY Negative Normal < 500 ng/mL [facility] Comment on above: Order Comment: MEDTO X Performed By: #### L 506.1000, L503.0105, L503.6150, L100.0100, L506.0400, L500.4050, L503.6550, L501.9520 #### [facility] [address] [place], [address] METHADONE Negative Normal < 300 ng/mL [facility] Comment on above: Order Comment: MEDTO X Performed By: #### L 506.1000, L503.0105, L503.6150, L100.0100, L506.0400, L500.4050, L503.6550, L501.9520 #### [facility] [address] [place], [address] OPIATES Positive Abnormal < 300 ng/mL [facility] Comment on above: Order Comment: MEDTO X Performed By: #### L 506.1000, L503.0105, L503.6150, L100.0100, L506.0400, L500.4050, L503.6550, L501.9520 #### [facility] [address] [place], [address] PCP Negative Normal < 25 ng/mL [facility] Comment on above: Order Comment: MEDTO X Performed By: #### L 506.1000, L503.0105, L503.6150, L100.0100, L506.0400, L500.4050, L503.6550, L501.9520 #### [facility] [address] [place], [address] THC Negative Normal < 50 ng/mL [facility] Comment on above: Order Comment: MEDTO X Performed By: #### L 506.1000, L503.0105, L503.6150, L100.0100, L506.0400, L500.4050, L503.6550, L501.9520 #### [facility] [address] [place], [place], [address] VISTA UDS PH 5 Normal [facility] Comment on above: Order Comment: MEDTO X Performed By: #### L 506.1000, L503.0105, L503.6150, L100.0100, L506.0400, L500.4050, L503.6550, L501.9520 #### [facility] [address] [place], [address] Endocrinology Visit Reporton 06-06-2024 Endocrinology Visit Report [facility] [facility] [place], [place] [address] OFFICE VISIT Date of Service: 06/06/24 MR#: [id number] Acct: [id number] Name: FLEX WOOTEN Rep #: [id number] : 1960 Provider: SAGE hernandez Age/Sex: 64/F [facility] [place] Status: Signed Intake Vital [...] spine Rachel (more content not included)... Normal [facility] CBC W/Diff, Automatedon 10-0 Absolute Lymph 1.84 X10 3/uL Normal 0.83-4.51 [facility] Comment on above: Performed By: #### L 506.1000, L503.0105, L503.6150, L100.0100, L506.0400, L500.4050, L503.6550, L501.9520 #### [facility] [address] [place], [address] Absolute Neut 4.0 X10 3/uL Normal 2.0-7.7 [facility] Comment on above: Performed By: #### L 506.1000, L503.0105, L503.6150, L100.0100, L506.0400, L500.4050, L503.6550, L501.9520 #### [facility] [address] [place], [address] Basophils/100 WBC (Bld) 0.6 % Normal 0-1 [facility] Comment on above: Performed By: #### L 506.1000, L503.0105, L503.6150, L100.0100, L506.0400, L500.4050, L503.6550, L501.9520 #### [facility] [address] [place], [address] Eosinophils/100 WBC (Bld) 2.7 % Normal 0-5 [facility] Comment on above: Performed By: #### L 506.1000, L503.0105, L503.6150, L100.0100, L506.0400, L500.4050, L503.6550, L501.9520 #### [facility] [address] [place], [address] Erythrocyte distribution width (RBC) [Ratio] 13.7 % Normal 11.6-14.6 [facility] Comment on above: Performed By: #### L 506.1000, L503.0105, L503.6150, L100.0100, L506.0400, L500.4050, L503.6550, L501.9520 #### [facility] [address] [place], [address] Hematocrit (Bld) [Volume fraction] 42.9 % Normal 37-47 [facility] Comment on above: Performed By: #### L 506.1000, L503.0105, L503.6150, L100.0100, L506.0400, L500.4050, L503.6550, L501.9520 #### [facility] [address] [place], [address] Hemoglobin (Bld) [Mass/Vol] 13.4 g/dL Normal 12.0-15.0 [facility] Comment on above: Performed By: #### L 506.1000, L503.0105, L503.6150, L100.0100, L506.0400, L500.4050, L503.6550, L501.9520 #### [facility] [address] [place], [address] IG% 0.500 Normal 0.0-0.9 [facility] Comment on above: Result Comment: IG% - Immature Granulocytes (promyelocytes, myelocytes and metamyelocytes) > 1% indicates that a LEFT SHIFT is Present. Performed By: #### L 506.1000, L503.0105, L503.6150, L100.0100, L506.0400, L500.4050, L503.6550, L501.9520 #### [facility] [address] [place], [address] Lymphocytes/100 WBC (Bld) 27.8 % Normal 19-41 [facility] Comment on above: Performed By: #### L 506.1000, L503.0105, L503.6150, L100.0100, L506.0400, L500.4050, L503.6550, L501.9520 #### [facility] [address] [place], [address] MCH (RBC) [Entitic mass] 28.7 pg Normal 27.0-32.0 [facility] Comment on above: Performed By: #### L 506.1000, L503.0105, L503.6150, L100.0100, L506.0400, L500.4050, L503.6550, L501.9520 #### [facility] [address] [place], [address] MCHC (RBC) [Mass/Vol] 31.2 g/dL Low 32-36 [facility] Comment on above: Performed By: #### L 506.1000, L503.0105, L503.6150, L100.0100, L506.0400, L500.4050, L503.6550, L501.9520 #### [facility] [address] [place], [address] MCV (RBC) [Entitic vol] 91.9 fL Normal 81-99 [facility] Comment on above: Performed By: #### L 506.1000, L503.0105, L503.6150, L100.0100, L506.0400, L500.4050, L503.6550, L501.9520 #### [facility] [address] [place], [address] Monocytes/100 WBC (Bld) 7.7 % Normal 0-10 [facility] Comment on above: Performed By: #### L 506.1000, L503.0105, L503.6150, L100.0100, L506.0400, L500.4050, L503.6550, L501.9520 #### [facility] [address] [place], [address] Neutrophils/100 WBC (Bld) 60.7 % Normal 47-70 [facility] Comment on above: Performed By: #### L 506.1000, L503.0105, L503.6150, L100.0100, L506.0400, L500.4050, L503.6550, L501.9520 #### [facility] [address] [place], [address] Nucleated RBC (Bld) [#/Vol] 0 10*3/uL Normal 0-5 [facility] Comment on above: Performed By: #### L 506.1000, L503.0105, L503.6150, L100.0100, L506.0400, L500.4050, L503.6550, L501.9520 #### [facility] [address] [place], [address] Platelet mean volume (Bld) [Entitic vol] 9.6 fL Normal 6.2-12.0 [facility] Comment on above: Performed By: #### L 506.1000, L503.0105, L503.6150, L100.0100, L506.0400, L500.4050, L503.6550, L501.9520 #### [facility] [address] [place], [address] Platelets (Bld) [#/Vol] 228 10*3/uL Normal 150-450 [facility] Comment on above: Performed By: #### L 506.1000, L503.0105, L503.6150, L100.0100, L506.0400, L500.4050, L503.6550, L501.9520 #### [facility] [address] [place], [address] RBC (Bld) [#/Vol] 4.67 10*6/uL Normal 4.2-5.4 [facility] Comment on above: Performed By: #### L 506.1000, L503.0105, L503.6150, L100.0100, L506.0400, L500.4050, L503.6550, L501.9520 #### [facility] [address] [place], [address] RDW SD 46.1 fl High 35.1-43.9 [facility] Comment on above: Performed By: #### L 506.1000, L503.0105, L503.6150, L100.0100, L506.0400, L500.4050, L503.6550, L501.9520 #### [facility] [address] [place], [address] WBC (Bld) [#/Vol] 6.6 10*3/uL Normal 4.4-11.0 [facility] Comment on above: Performed By: #### L 506.1000, L503.0105, L503.6150, L100.0100, L506.0400, L500.4050, L503.6550, L501.9520 #### [facility] [address] [place], [address] Comprehensive Metabolic [facility] 06-01-2024 Albumin [Mass/Vol] 3.3 g/dL Normal 3.2-5.0 [facility] Comment on above: Performed By: #### L 506.1000, L503.0105, L503.6150, L100.0100, L506.0400, L500.4050, L503.6550, L501.9520 #### [facility] [address] [place], [address] Albumin/Globulin [Mass ratio] 0.8 {ratio} Low 0.9-2.4 [facility] Comment on above: Performed By: #### L 506.1000, L503.0105, L503.6150, L100.0100, L506.0400, L500.4050, L503.6550, L501.9520 #### [facility] [address] [place], [address] ALK P 102 U/L Normal 45-117 [facility] Comment on above: Performed By: #### L 506.1000, L503.0105, L503.6150, L100.0100, L506.0400, L500.4050, L503.6550, L501.9520 #### [facility] [address] [place], [address] ALT [Catalytic activity/Vol] 66 U/L High 13-56 [facility] Comment on above: Performed By: #### L 506.1000, L503.0105, L503.6150, L100.0100, L506.0400, L500.4050, L503.6550, L501.9520 #### [facility] [address] [place], [address] AST [Catalytic activity/Vol] 63 U/L High 15-37 [facility] Comment on above: Performed By: #### L 506.1000, L503.0105, L503.6150, L100.0100, L506.0400, L500.4050, L503.6550, L501.9520 #### [facility] [address] [place], [address] Bilirubin [Mass/Vol] 0.30 mg/dL Normal 0.20-1.00 [facility] Comment on above: Result Comment: For patients on eltrombopag therapy, use of Dimension [place] TBIL is not recommended. Performed By: #### L 506.1000, L503.0105, L503.6150, L100.0100, L506.0400, L500.4050, L503.6550, L501.9520 #### [facility] [address] [place], [address] BUN/CRE 18.1 RATIO Normal 10-20 [facility] Comment on above: Performed By: #### L 506.1000, L503.0105, L503.6150, L100.0100, L506.0400, L500.4050, L503.6550, L501.9520 #### [facility] [address] [place], [address] CA,Total 9.4 mg/dL Normal 8.5-10.1 [facility] Comment on above: Performed By: #### L 506.1000, L503.0105, L503.6150, L100.0100, L506.0400, L500.4050, L503.6550, L501.9520 #### [facility] [address] [place], [address] Chloride [Moles/Vol] 102 mmol/L Normal 98-107 [facility] Comment on above: Performed By: #### L 506.1000, L503.0105, L503.6150, L100.0100, L506.0400, L500.4050, L503.6550, L501.9520 #### [facility] [address] [place], [address] CO2 [Moles/Vol] 29.0 mmol/L Normal 21.0-32.0 [facility] Comment on above: Performed By: #### L 506.1000, L503.0105, L503.6150, L100.0100, L506.0400, L500.4050, L503.6550, L501.9520 #### [facility] [address] [place], [address] Creatinine [Mass/Vol] 0.88 mg/dL Normal 0.55-1.02 [facility] Comment on above: Result Comment: The validity of the calculated GFR GFRAA in patients over 70 years has not been determined. Clinical correlation is essential. Performed By: #### L 506.1000, L503.0105, L503.6150, L100.0100, L506.0400, L500.4050, L503.6550, L501.9520 #### [facility] [address] [place], [address] EST GFR - AA 82 mL/min Normal >60 [facility] Comment on above: Result Comment: Afri can German GFR Calc Performed By: #### L 506.1000, L503.0105, L503.6150, L100.0100, L506.0400, L500.4050, L503.6550, L501.9520 #### [facility] [address] [place], [place], [id number] (475) GAP 7 Normal 5-15 [facility] Comment on above: Performed By: #### L 506.1000, L503.0105, L503.6150, L100.0100, L506.0400, L500.4050, L503.6550, L501.9520 #### [facility] [address] [place], [place], [id number] (552 GFR/1.73 sq M.predicted among non-blacks MDRD (S/P/Bld) [Vol rate/Area] 68 mL/min/{1.73_m2} Normal >60 [facility] Comment on above: Result Comment: Non- GFR Calc Performed By: #### L 506.1000, L503.0105, L503.6150, L100.0100, L506.0400, L500.4050, L503.6550, L501.9520 #### [facility] [address] [place], [address] Globulin (S) [Mass/Vol] 4.0 g/dL Normal 2.2-4.2 [facility] Comment on above: Performed By: #### L 506.1000, L503.0105, L503.6150, L100.0100, L506.0400, L500.4050, L503.6550, L501.9520 #### [facility] [address] [place], [address] Glucose [Mass/Vol] 195 mg/dL High 74-106 [facility] Comment on above: Result Comment: Fast ing Glucose result greater than or equal to 126 mg/dL suggests DIABETES MELLITUS per A.D.A. criteria. Performed By: #### L 506.1000, L503.0105, L503.6150, L100.0100, L506.0400, L500.4050, L503.6550, L501.9520 #### [facility] [address] [place], [address] Potassium [Moles/Vol] 3.8 mmol/L Normal 3.5-5.1 [facility] Comment on above: Performed By: #### L 506.1000, L503.0105, L503.6150, L100.0100, L506.0400, L500.4050, L503.6550, L501.9520 #### [facility] [address] [place], [address] Sodium [Moles/Vol] 138 mmol/L Normal 136-145 [facility] Comment on above: Performed By: #### L 506.1000, L503.0105, L503.6150, L100.0100, L506.0400, L500.4050, L503.6550, L501.9520 #### [facility] [address] [place], [address] T PROT 7.3 g/dL Normal 6.4-8.2 [facility] Comment on above: Performed By: #### L 506.1000, L503.0105, L503.6150, L100.0100, L506.0400, L500.4050, L503.6550, L501.9520 #### [facility] [address] [place], [address] Urea nitrogen [Mass/Vol] 16 mg/dL Normal 7-18 [facility] Comment on above: Performed By: #### L 506.1000, L503.0105, L503.6150, L100.0100, L506.0400, L500.4050, L503.6550, L501.9520 #### [facility] [address] [place], [address] Ferritinon 06-01-2024 Ferritin [Mass/Vol] 31 ng/mL Normal 8-252 [facility] Comment on above: Performed By: #### L 500.2500, L506.1001 #### [facility] [address] [place], [address] Ironon 06-01-2024 Iron [Mass/Vol] 78 ug/dL Normal 50-170 [facility] Comment on above: Performed By: #### L 506.1000, L503.0105, L503.6150, L100.0100, L506.0400, L500.4050, L503.6550, L501.9520 #### [facility] [address] [place], [address] T4 Free Directon 06-01-2024 T4 FREE DIRECT 1.07 ng/dL Normal 0.76-1.46 [facility] Comment on above: Performed By: #### L 500.2500, L506.1001 #### [facility] [address] [place], [address] Thyroid Stim Hormone (TSH)on 06-01-2024 TSH 2.790 uIU/mL Normal 0.358-3.740 [facility] Comment on above: Performed By: #### L 506.1000, L503.0105, L503.6150, L100.0100, L506.0400, L500.4050, L503.6550, L501.9520 #### [facility] [address] [place], [address] Vitamin B12on 06-01-2024 Cobalamin (Vitamin B12) [Mass/Vol] 613 pg/mL Normal 211-911 [facility] Comment on above: Performed By: #### L 506.1000, L503.0105, L503.6150, L100.0100, L506.0400, L500.4050, L503.6550, L501.9520 #### [facility] [address] [place], [place], [id number] Vitamin D,25 Hydroxyon 06-01 Vitamin D 25-OH 38.7 ng/mL Normal [facility] Comment on above: Result Comment: Ashley min D 25(OH) Status Range Deficiency <20 ng/mL (50nmol/L) Insufficiency 20 - 30 ng/mL (50 - 75 nmol/L) Sufficiency 30 - 100 ng/mL (75 - 250 nmol/L) Toxicity >100 ng/mL (>250 nmol/L) Performed By: #### L 506.1000, L503.0105, L503.6150, L100.0100, L506.0400, L500.4050, L503.6550, L501.9520 #### [facility] [address] [place], [place], [address] MR/BMS.BPon 05-07-2024 MR/BMS.BP [address], [address] [place] [address] OFFICE VISIT Date of Service: 05/07/24 MR#: [id number] Acct: [id number] Name: FLEX WOOTEN Rep #: [id number] [...] of surg (more content not included)... Normal [facility] Basic Metabolic Profile (BMP )on 04-03-2024 BUN Normal 7-18 [facility] Comment on above: Result Comment: Canc elled via OM: Order cancelled - Patient discharged Performed By: #### L 500.2500, L506.1001 #### [facility] [address] [facility] [address] BUN/CRE Normal 10-20 [facility] Comment on above: Result Comment: Canc elled via OM: Order cancelled - Patient discharged Performed By: #### L 500.2500, L506.1001 #### [facility] [address] [place], [address] CA,Total Normal 8.5-10.1 [facility] Comment on above: Result Comment: Canc elled via OM: Order cancelled - Patient discharged Performed By: #### L 500.2500, L506.1001 #### [facility] [address] [place], [address] CL Normal 98-107 [facility] Comment on above: Result Comment: Canc elled via OM: Order cancelled - Patient discharged Performed By: #### L 500.2500, L506.1001 #### [facility] [address] [place], [address] CO2 Normal 21.0-32.0 [facility] Comment on above: Result Comment: Canc elled via OM: Order cancelled - Patient discharged Performed By: #### L 500.2500, L506.1001 #### [facility] [address] [place], [address] CREAT,SERUM Normal 0.55-1.02 [facility] Comment on above: Result Comment: Canc elled via OM: Order cancelled - Patient discharged Performed By: #### L 500.2500, L506.1001 #### [facility] [address] [place], [address] EST GFR Normal >60 [facility] Comment on above: Result Comment: Canc elled via OM: Order cancelled - Patient discharged Performed By: #### L 500.2500, L506.1001 #### [facility] [address] [place], [address] EST GFR - AA Normal >60 [facility] Comment on above: Result Comment: Canc elled via OM: Order cancelled - Patient discharged Performed By: #### L 500.2500, L506.1001 #### [facility] [address] [place], [address] GAP Normal 5-15 [facility] Comment on above: Result Comment: Canc elled via OM: Order cancelled - Patient discharged Performed By: #### L 500.2500, L506.1001 #### [facility] [address] [place], [address] GLU Normal 74-106 [facility] Comment on above: Result Comment: Canc elled via OM: Order cancelled - Patient discharged Performed By: #### L 500.2500, L506.1001 #### [facility] [address] [place], [address] Potassium Normal 3.5-5.1 [facility] Comment on above: Result Comment: Canc elled via OM: Order cancelled - Patient discharged Performed By: #### L 500.2500, L506.1001 #### [facility] [address] [place], [address] Basic Metabolic Profile (BMP) Normal 136-145 [facility] Comment on above: Result Comment: Canc elled via OM: Order cancelled - Patient discharged Performed By: #### L 500.2500, L506.1001 #### [facility] [address] [place], [address] CBC W/Diff, Automatedon 08-0 -2023 Absolute Neut Normal 2.0-7.7 [facility] Comment on above: Result Comment: Canc elled via OM: Order cancelled - Patient discharged Performed By: #### L 501.080 #### [facility] [address] [place], [address] HCT Normal 37-47 [facility] Comment on above: Result Comment: Canc elled via OM: Order cancelled - Patient discharged Performed By: #### L 501.080 #### [facility] [address] [place], [address] HGB Normal 12.0-15.0 [facility] Comment on above: Result Comment: Canc elled via OM: Order cancelled - Patient discharged Performed By: #### L 501.080 #### [facility] [address] [place], [address] MCH Normal 27.0-32.0 [facility] Comment on above: Result Comment: Canc elled via OM: Order cancelled - Patient discharged Performed By: #### L 501.080 #### [facility] [address] [place], [address] MCHC Normal 32-36 [facility] Comment on above: Result Comment: Canc elled via OM: Order cancelled - Patient discharged Performed By: #### L 501.080 #### [facility] [address] [place], [address] MCV Normal 81-99 [facility] Comment on above: Result Comment: Canc elled via OM: Order cancelled - Patient discharged Performed By: #### L 501.080 #### [facility] [address] [place], [address] NEUT% Normal 47-70 [facility] Comment on above: Result Comment: Canc elled via OM: Order cancelled - Patient discharged Performed By: #### L 501.080 #### [facility] [address] [place], [address] PLT Normal 150-450 [facility] Comment on above: Result Comment: Canc elled via OM: Order cancelled - Patient discharged Performed By: #### L 501.080 #### [facility] [address] [place], [address] RBC Normal 4.2-5.4 [facility] Comment on above: Result Comment: Canc elled via OM: Order cancelled - Patient discharged Performed By: #### L 501.080 #### [facility] [address] [place], [address] RDW CV Normal 11.6-14.6 [facility] Comment on above: Result Comment: Canc elled via OM: Order cancelled - Patient discharged Performed By: #### L 501.080 #### [facility] [address] [place], [address] RDW SD Normal 35.1-43.9 [facility] Comment on above: Result Comment: Canc elled via OM: Order cancelled - Patient discharged Performed By: #### L 501.080 #### [facility] [address] [place], [address] WBC Normal 4.4-11.0 [facility] Comment on above: Result Comment: Canc elled via OM: Order cancelled - Patient discharged Performed By: #### L 501.080 #### [facility] [address] [place], [address] Endocrinology Visit Reporton 04-02-2024 Endocrinology Visit Report [facility] 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 Normal [facility] Basic Metabolic Profile (BMP )on 03-27-2024 BUN Normal -18 [facility] Comment on above: Result Comment: Canc elled via OM: Order cancelled - Patient discharged Performed By: #### L 501.080 #### [facility] [address] [facility] [address] BUN/CRE Normal 10-20 [facility] Comment on above: Result Comment: Canc elled via OM: Order cancelled - Patient discharged Performed By: #### L 501.080 #### [facility] [address] [facility] [address] CA,Total Normal 8.5-10.1 [facility] Comment on above: Result Comment: Canc elled via OM: Order cancelled - Patient discharged Performed By: #### L 501.080 #### [facility] [address] [facility] [address] CL Normal 98-107 [facility] Comment on above: Result Comment: Canc elled via OM: Order cancelled - Patient discharged Performed By: #### L 501.080 #### [facility] [address] [place], [address] CO2 Normal 21.0-32.0 [facility] Comment on above: Result Comment: Canc elled via OM: Order cancelled - Patient discharged Performed By: #### L 501.080 #### [facility] [address] [place], [address] CREAT,SERUM Normal 0.55-1.02 [facility] Comment on above: Result Comment: Canc elled via OM: Order cancelled - Patient discharged Performed By: #### L 501.080 #### [facility] [address] [place], [address] EST GFR Normal >60 [facility] Comment on above: Result Comment: Canc elled via OM: Order cancelled - Patient discharged Performed By: #### L 501.080 #### [facility] [address] [place], [address] EST GFR - AA Normal >60 [facility] Comment on above: Result Comment: Canc elled via OM: Order cancelled - Patient discharged Performed By: #### L 501.080 #### [facility] [address] [place], [address] GAP Normal 5-15 [facility] Comment on above: Result Comment: Canc elled via OM: Order cancelled - Patient discharged Performed By: #### L 501.080 #### [facility] [address] [place], [address] GLU Normal 74-106 [facility] Comment on above: Result Comment: Canc elled via OM: Order cancelled - Patient discharged Performed By: #### L 501.080 #### [facility] [address] [place], [address] Potassium Normal 3.5-5.1 [facility] Comment on above: Result Comment: Canc elled via OM: Order cancelled - Patient discharged Performed By: #### L 501.080 #### [facility] [address] [place], [address] Basic Metabolic Profile (BMP) Normal 136-145 [facility] Comment on above: Result Comment: Canc elled via OM: Order cancelled - Patient discharged Performed By: #### L 501.080 #### [facility] [address] [place], [address] CBC W/Diff, Automatedon 07-3 0-2023 Absolute Neut Normal 2.0-7.7 [facility] Comment on above: Result Comment: Canc elled via OM: Order cancelled - Patient discharged Performed By: #### L 501.080 #### [facility] [address] [place], [address] HCT Normal 37-47 [facility] Comment on above: Result Comment: Canc elled via OM: Order cancelled - Patient discharged Performed By: #### L 501.080 #### [facility] [address] [place] [place], [address] HGB Normal 12.0-15.0 [facility] Comment on above: Result Comment: Canc elled via OM: Order cancelled - Patient discharged Performed By: #### L 501.080 #### [facility] [address] [place], [address] MCH Normal 27.0-32.0 [facility] Comment on above: Result Comment: Canc elled via OM: Order cancelled - Patient discharged Performed By: #### L 501.080 #### [facility] [address] [place], [address] MCHC Normal 32-36 [facility] Comment on above: Result Comment: Canc elled via OM: Order cancelled - Patient discharged Performed By: #### L 501.080 #### [facility] [address] [place], [address] MCV Normal 81-99 [facility] Comment on above: Result Comment: Canc elled via OM: Order cancelled - Patient discharged Performed By: #### L 501.080 #### [facility] [address] [place], [address] NEUT% Normal 47-70 [facility] Comment on above: Result Comment: Canc elled via OM: Order cancelled - Patient discharged Performed By: #### L 501.080 #### [facility] [address] [place], [address] PLT Normal 150-450 [facility] Comment on above: Result Comment: Canc elled via OM: Order cancelled - Patient discharged Performed By: #### L 501.080 #### [facility] [address] [place], [address] RBC Normal 4.2-5.4 [facility] Comment on above: Result Comment: Canc elled via OM: Order cancelled - Patient discharged Performed By: #### L 501.080 #### [facility] [address] [place], [address] RDW CV Normal 11.6-14.6 [facility] Comment on above: Result Comment: Canc elled via OM: Order cancelled - Patient discharged Performed By: #### L 501.080 #### [facility] [address] [place], [address] RDW SD Normal 35.1-43.9 [facility] Comment on above: Result Comment: Canc elled via OM: Order cancelled - Patient discharged Performed By: #### L 501.080 #### [facility] [address] [place], [address] WBC Normal 4.4-11.0 [facility] Comment on above: Result Comment: Canc elled via OM: Order cancelled - Patient discharged Performed By: #### L 501.080 #### [facility] [address] [place], [address] Basic Metabolic Profile (BMP )on 03-20-2024 BUN Normal 7-18 [facility] Comment on above: Result Comment: Canc elled via OM: Order cancelled - Patient discharged Performed By: #### L 500.2500, L506.1001 #### [facility] [address] [place], [address] BUN/CRE Normal 10-20 [facility] Comment on above: Result Comment: Canc elled via OM: Order cancelled - Patient discharged Performed By: #### L 500.2500, L506.1001 #### [facility] [address] [place], [address] CA,Total Normal 8.5-10.1 [facility] Comment on above: Result Comment: Canc elled via OM: Order cancelled - Patient discharged Performed By: #### L 500.2500, L506.1001 #### [facility] [address] [place], [address] CL Normal 98-107 [facility] Comment on above: Result Comment: Canc elled via OM: Order cancelled - Patient discharged Performed By: #### L 500.2500, L506.1001 #### [facility] [address] [place], [address] CO2 Normal 21.0-32.0 [facility] Comment on above: Result Comment: Canc elled via OM: Order cancelled - Patient discharged Performed By: #### L 500.2500, L506.1001 #### [facility] [address] [place], [address] CREAT,SERUM Normal 0.55-1.02 [facility] Comment on above: Result Comment: Canc elled via OM: Order cancelled - Patient discharged Performed By: #### L 500.2500, L506.1001 #### [facility] [address] [place], [address] EST GFR Normal >60 [facility] Comment on above: Result Comment: Canc elled via OM: Order cancelled - Patient discharged Performed By: #### L 500.2500, L506.1001 #### [facility] [address] [place], [address] EST GFR - AA Normal >60 [facility] Comment on above: Result Comment: Canc elled via OM: Order cancelled - Patient discharged Performed By: #### L 500.2500, L506.1001 #### [facility] [address] [place], [address] GAP Normal 5-15 [facility] Comment on above: Result Comment: Canc elled via OM: Order cancelled - Patient discharged Performed By: #### L 500.2500, L506.1001 #### [facility] [address] [place], [address] GLU Normal 74-106 [facility] Comment on above: Result Comment: Canc elled via OM: Order cancelled - Patient discharged Performed By: #### L 500.2500, L506.1001 #### [facility] [address] [place], [address] Potassium Normal 3.5-5.1 [facility] Comment on above: Result Comment: Canc elled via OM: Order cancelled - Patient discharged Performed By: #### L 500.2500, L506.1001 #### [facility] [address] [place], [address] Basic Metabolic Profile (BMP) Normal 136-145 [facility] Comment on above: Result Comment: Canc elled via OM: Order cancelled - Patient discharged Performed By: #### L 500.2500, L506.1001 #### [facility] [address] [place], [address] CBC W/Diff, Automatedon 07-2 Absolute Neut Normal 2.0-7.7 [facility] Comment on above: Result Comment: Canc elled via OM: Order cancelled - Patient discharged Performed By: #### L 500.2500, L506.1001 #### [facility] [address] [place], [address] HCT Normal 37-47 [facility] Comment on above: Result Comment: Canc elled via OM: Order cancelled - Patient discharged Performed By: #### L 500.2500, L506.1001 #### [facility] [address] [place], [address] HGB Normal 12.0-15.0 [facility] Comment on above: Result Comment: Canc elled via OM: Order cancelled - Patient discharged Performed By: #### L 500.2500, L506.1001 #### [facility] [address] [place], [address] MCH Normal 27.0-32.0 [facility] Comment on above: Result Comment: Canc elled via OM: Order cancelled - Patient discharged Performed By: #### L 500.2500, L506.1001 #### [facility] [address] [place], [address] MCHC Normal 32-36 [facility] Comment on above: Result Comment: Canc elled via OM: Order cancelled - Patient discharged Performed By: #### L 500.2500, L506.1001 #### [facility] [address] [place], [address] MCV Normal 81-99 [facility] Comment on above: Result Comment: Canc elled via OM: Order cancelled - Patient discharged Performed By: #### L 500.2500, L506.1001 #### [facility] [address] [place], [address] NEUT% Normal 47-70 [facility] Comment on above: Result Comment: Canc elled via OM: Order cancelled - Patient discharged Performed By: #### L 500.2500, L506.1001 #### [facility] [address] [place], [address] PLT Normal 150-450 [facility] Comment on above: Result Comment: Canc elled via OM: Order cancelled - Patient discharged Performed By: #### L 500.2500, L506.1001 #### [facility] [address] [place], [address] RBC Normal 4.2-5.4 [facility] Comment on above: Result Comment: Canc elled via OM: Order cancelled - Patient discharged Performed By: #### L 500.2500, L506.1001 #### [facility] [address] [place], [address] RDW CV Normal 11.6-14.6 [facility] Comment on above: Result Comment: Canc elled via OM: Order cancelled - Patient discharged Performed By: #### L 500.2500, L506.1001 #### [facility] [address] [place], [address] RDW SD Normal 35.1-43.9 [facility] Comment on above: Result Comment: Canc elled via OM: Order cancelled - Patient discharged Performed By: #### L 500.2500, L506.1001 #### [facility] [address] [place], [address] WBC Normal 4.4-11.0 [facility] Comment on above: Result Comment: Canc elled via OM: Order cancelled - Patient discharged Performed By: #### L 500.2500, L506.1001 #### [facility] [address] [place], [address] 36on 11-03-2023 36 Name of caller: Flex Contact phone number: [phone] Relationship to Patient: patient Provider: Dr. Landis [...] hours to return their call: No Normal [facility] COLONOSCOPYon 09-06-2023 Colonoscopy Table formatting fro m the original result was not included. [facility] Colonoscopy studyon 09-06-19 Table formatting fro [...] of bowel preparation was evaluated using the [place] Bowel Preparation Scale with scores of: right [...] PM Specimens No specimens collected Procedure Location [facility] [address] [place] [id number] Referring Provider Renita Mijares Do [facility], [facility] [address] [place] [address] Procedure Provider Renita Mijares DO [facility] Work Phone: [facility] Work Phone: Radiology Study observation (narrative) [facility] Work Phone: .Auto Diffon 02-24-2023 Basophil, Absolute 0.0 10 3/mcL Normal 0.0-0.2 [facility] ([place] Comment on above: Performed By: #### C ROMEO BRYANT, ANEU #### [address] [address] Basophils/100 WBC (Bld) 0.2 % Normal 0.0-2.5 [facility] ([place]) Comment on above: Performed By: #### ROMEO FRANCIS, ANEU #### [address] [address] Eosinophil, Absolute 0.4 10 3/mcL Normal 0.0-0.4 [facility] ([place] Comment on above: Performed By: #### ROMEO FRANCIS, ANEU #### [address] [address] Eosinophils/100 WBC (Bld) 3.7 % Normal 0.0-7.0 [facility] ([place] Comment on above: Performed By: #### ROMEO FRANCIS, ANEU #### [address] [address] Lymphocyte, Absolute 1.9 10 3/mcL Normal 0.8-3.9 [facility] ([place] Comment on above: Performed By: #### ROMEO FRANCIS, ANEU #### [address] [address] Lymphocytes/100 WBC (Bld) 19.2 % Normal 10.0-50.0 [facility] ([place] Comment on above: Performed By: #### C ROMEO BRYANT, ANEU #### [address] [address] Monocyte, Absolute 0.6 10 3/mcL Normal 0.2-1.0 [facility] ([place] Comment on above: Performed By: #### C ROMEO BRYANT, ANEU #### [address] [address] Monocytes/100 WBC (Bld) 6.5 % Normal 1.7-13.0 [facility] ([place] Comment on above: Performed By: #### C ROMEO BRYANT, ANEU #### [address] [address] Neutrophils/100 WBC (Bld) 70.4 % Normal 37.0-80.0 [facility] ([place] Comment on above: Performed By: #### ROMEO FRANCIS, ANEU #### [address] [address] .NEUABSon 02-24-2023 Neutrophil, Absolute 6.9 10 3/mcL High 2.9-6.2 [facility] ([place]) Comment on above: Performed By: #### ROMEO FRANCIS, ANEU #### [address] [address] CBCon 02-24-2023 Erythrocyte distribution width (RBC) [Ratio] 14.5 % Normal 11.5-14.5 [facility] ([place]) Comment on above: Performed By: #### C ROMEO BRYANT, ANEU #### [address] [address] Hematocrit (Bld) [Volume fraction] 34.4 % Low 37.0-47.0 [facility] ([place] Comment on above: Performed By: #### ROMEO FRANCIS, ANEU #### [address] [address] Hgb 11.4 G/dL Low 12.0-16.0 [facility] ([place] Comment on above: Performed By: #### C ROMEO BRYANT, ANEU #### [place] [address] [place], [place] [address] MCH (RBC) [Entitic mass] 29.9 pg Normal 27.0-31.2 [facility] ([place] Comment on above: Performed By: #### ROMEO FRANCIS, ANEU #### [facility] [address] [place] [address] MCHC 33.3 G/dL Normal 33.0-37.0 [facility] ([place] Comment on above: Performed By: #### C ROMEO BRYANT, ANEU #### [facility] [address] [address] MCV (RBC) [Entitic vol] 89.7 fL Normal 80.0-94.0 [facility] ([place] Comment on above: Performed By: #### ROMEO FRANCIS, ANEU #### [address] [address] Platelet 180 10 3/mcL Normal 130-400 [facility] ([place] Comment on above: Performed By: #### C ROMEO BRYANT, ANEU #### [address] [address] Platelet mean volume (Bld) [Entitic vol] 7.2 fL Low 7.4-10.4 [facility] ([place] Comment on above: Performed By: #### ROMEO FRANCIS, ANEU #### [address] [address] RBC 3.83 10 6/mcL Low 4.20-5.40 [facility] ([place] Comment on above: Performed By: #### ROMEO FRANCIS, ANEU #### [facility] [address] [address] WBC 9.8 10 3/mcL Normal 4.6-10.8 [facility] ([place] Comment on above: Performed By: #### ROMEO FRANCIS, ANEU #### [facility] [address] [address] LABORATORYOrdered By: Soha Jiang on 02-24-2023 Blood Glucose Testing Reason Routine (02/24/23 11:46 AM) [facility] Glucose [Mass/Vol] 209 mg/dL Invalid Interpretation Code 82 - 115 mg/dL [facility] Blood Glucose Testing Reason Routine (02/24/23 7:05 AM) [facility] Glucose [Mass/Vol] 139 mg/dL Invalid Interpretation Code 82 - 115 mg/dL [facility] LABORATORYOrdered By: SYSTEM SYSTEM on 02-24-2023 [...] Basophil, Absolute 0.0 10 3/mcL Normal 0.0-0.2 [facility] ([place] Comment on above: Performed By: #### B MP, GFR, CBC, ADIFF, ANEU #### [address] [address] Basophils/100 WBC (Bld) 0.1 % Normal 0.0-2.5 [facility] ([place] Comment on above: Performed By: #### B MP, GFR, CBC, ADIFF, ANEU #### [address] [address] Eosinophil, Absolute 0.0 10 3/mcL Normal 0.0-0.4 [facility] ([place] Comment on above: Performed By: #### B MP, GFR, CBC, ADIFF, ANEU #### [address] [address] Eosinophils/100 WBC (Bld) 0.1 % Normal 0.0-7.0 [facility] ([place] Comment on above: Performed By: #### B MP, GFR, CBC, ADIFF, ANEU #### [address] [address] Lymphocyte, Absolute 1.4 10 3/mcL Normal 0.8-3.9 [facility] ([place] Comment on above: Performed By: #### B MP, GFR, CBC, ADIFF, ANEU #### [address] [address] Lymphocytes/100 WBC (Bld) 12.5 % Normal 10.0-50.0 [facility] ([place] Comment on above: Performed By: #### B MP, GFR, CBC, ADIFF, ANEU #### [address] [address] Monocyte, Absolute 0.5 10 3/mcL Normal 0.2-1.0 [facility] ([place] Comment on above: Performed By: #### B MP, GFR, CBC, ADIFF, ANEU #### [address] [address] Monocytes/100 WBC (Bld) 5.0 % Normal 1.7-13.0 [facility] ([place] Comment on above: Performed By: #### B MP, GFR, CBC, ADIFF, ANEU #### [address] [address] Neutrophils/100 WBC (Bld) 82.3 % High 37.0-80.0 [facility] ([place] Comment on above: Performed By: #### B MP, GFR, CBC, ADIFF, ANEU #### [address] [address] .GFRon 02-23-2023 GFR 61 ml/min/1.73sqm Normal [facility] ([place]) Comment on above: Result Comment: GFR Population [...] B MP, GFR, CBC, ADIFF, ANEU #### [address] [address] GFR Non- 51 ml/min/1.73sqm Normal [facility] ([place] Comment on above: Result Comment: GFR Population [...] B MP, GFR, CBC, ADIFF, ANEU #### [address] [address] .NEUABSon 02-23-2023 Neutrophil, Absolute 9.0 10 3/mcL High 2.9-6.2 [facility] ([place] Comment on above: Performed By: #### B MP, GFR, CBC, ADIFF, ANEU #### [address] [address] BMPon 02-23-2023 BUN/Creatinine Ratio 16 ratio Normal 7-27 [facility] ([place] Comment on above: Performed By: #### B MP, GFR, CBC, ADIFF, ANEU #### [address] [address] Calcium [Mass/Vol] 8.7 mg/dL Normal 8.4-10.2 [facility] ([place]) Comment on above: Performed By: #### B MP, GFR, CBC, ADIFF, ANEU #### [address] [address] Chloride [Moles/Vol] 103 mmol/L Normal 98-107 [facility] ([place] Comment on above: Performed By: #### B MP, GFR, CBC, ADIFF, ANEU #### [address] [address] CO2 [Moles/Vol] 30 mmol/L Normal 23-31 [facility] ([place] Comment on above: Performed By: #### B MP, GFR, CBC, ADIFF, ANEU #### [address] [address] Creatinine [Mass/Vol] 1.09 mg/dL High 0.55-1.02 [facility] ([place] Comment on above: Performed By: #### B MP, GFR, CBC, ADIFF, ANEU #### [address] [address] Electrolyte Balance 8.0 mEq/L Normal 4.0-15.0 [facility] ([place] Comment on above: Performed By: #### B MP, GFR, CBC, ADIFF, ANEU #### [address] [address] Glucose [Mass/Vol] 239 mg/dL High 80-115 [facility] ([place] Comment on above: Performed By: #### B MP, GFR, CBC, ADIFF, ANEU #### [address] [address] Potassium [Moles/Vol] 4.8 mmol/L Normal 3.5-5.1 [facility] ([place] Comment on above: Performed By: #### B MP, GFR, CBC, ADIFF, ANEU #### [address] [address] Sodium [Moles/Vol] 141 mmol/L Normal 136-145 [facility] ([place] Comment on above: Performed By: #### B MP, GFR, CBC, ADIFF, ANEU #### [address] [address] Urea nitrogen [Mass/Vol] 17 mg/dL Normal 7-18 [facility] ([place] Comment on above: Performed By: #### B MP, GFR, CBC, ADIFF, ANEU #### [address] [address] CBCon 02-23-2023 Erythrocyte distribution width (RBC) [Ratio] 14.4 % Normal 11.5-14.5 [facility] ([place]) Comment on above: Performed By: #### B MP, GFR, CBC, ADIFF, ANEU #### [place] [id number] Hematocrit (Bld) [Volume fraction] 34.9 % Low 37.0-47.0 [facility] ([place] Comment on above: Performed By: #### B MP, GFR, CBC, ADIFF, ANEU #### [address] [address] Hgb 11.6 G/dL Low 12.0-16.0 [facility] ([place] Comment on above: Performed By: #### B MP, GFR, CBC, ADIFF, ANEU #### [address] [address] MCH (RBC) [Entitic mass] 29.6 pg Normal 27.0-31.2 [facility] ([place] Comment on above: Performed By: #### B MP, GFR, CBC, ADIFF, ANEU #### [address] [address] MCHC 33.1 G/dL Normal 33.0-37.0 [facility] ([place] Comment on above: Performed By: #### B MP, GFR, CBC, ADIFF, ANEU #### [address] [address] MCV (RBC) [Entitic vol] 89.4 fL Normal 80.0-94.0 [facility] ([place] Comment on above: Performed By: #### B MP, GFR, CBC, ADIFF, ANEU #### [address] [address] Platelet 231 10 3/mcL Normal 130-400 [facility] ([place] Comment on above: Performed By: #### B MP, GFR, CBC, ADIFF, ANEU #### [address] [address] Platelet mean volume (Bld) [Entitic vol] 7.4 fL Normal 7.4-10.4 [facility] ([place] Comment on above: Performed By: #### B MP, GFR, CBC, ADIFF, ANEU #### [address] [address] RBC 3.90 10 6/mcL Low 4.20-5.40 [facility] ([place] Comment on above: Performed By: #### B MP, GFR, CBC, ADIFF, ANEU #### [address] [address] WBC 10.9 10 3/mcL High 4.6-10.8 [facility] ([place] Comment on above: Performed By: #### B MP, GFR, CBC, ADIFF, ANEU #### [address] [address] LABORATORYOrdered By: Jacob Farmer on 02-23-2023 Glucose [Mass/Vol] 171 mg/dL Invalid Interpretation Code 82 - 115 mg/dL [facility] LABORATORYOrdered By: Eduardo Ghotra on 02-23-2023 Blood Glucose Testing Reason Routine (02/23/23 9:26 PM) [facility] LABORATORYOrdered By: Freddy Salomon on 02-23-2023 Stated Blood Glucose [address] [facility] LABORATORYOrdered By: Robert Wright on 02-23-2023 Basophil, [...] 02-22-2023 ABO/Rh Interp Negative Invalid Interpretation Code [facility] ([place]) Comment on above: Performed By: #### A CASEY VILLARREAL #### [address] [address] Gel ABSon 02-22-2023 Antibody Screen Gel Negative Normal [facility] ([place]) Comment on above: Performed By: #### A CASEY VILLARREAL #### [address] [place], [place] [address] LABORATORYOrdered By: Kiran Harding on 02-22-2023 Stated Blood Glucose [address] [facility] LABORATORYOrdered By: Aline weiss on 02-22-2023 Stated Blood Glucose [address] [facility] Time of Stated Blood Glucose [id number] [facility] LABORATORYOrdered By: Ann Marie Joiner on [...] Provider: PJ MAHONEY [facility] ([place]) CT KNEE W/O CONTRAST RIGHTon 02-04-2023 CT [...] 02/04/2023 9:09:05 AM Ordering Provider: PJ Bolden [facility] ([place]) .Auto Diffon 02-03-2023 Basophil, Absolute 0.0 10 3/mcL Normal 0.0-0.2 [facility] ([place] Comment on above: Performed By: #### C ROMEO BRYANT, ANEU #### [address] [address] Basophils/100 WBC (Bld) 0.5 % Normal 0.0-2.5 [facility] ([place] Comment on above: Performed By: #### C ROMEO BRYANT, ANEU #### [address] [address] Eosinophil, Absolute 0.1 10 3/mcL Normal 0.0-0.4 [facility] ([place]) Comment on above: Performed By: #### C ROMEO BRYANT, ANEU #### [address] [address] Eosinophils/100 WBC (Bld) 2.0 % Normal 0.0-7.0 [facility] ([place] Comment on above: Performed By: #### C ROMEO BRYANT, ANEU #### [address] [address] Lymphocyte, Absolute 2.2 10 3/mcL Normal 0.8-3.9 [facility] ([place] Comment on above: Performed By: #### C ROMEO BRYANT, ANEU #### [address] [address] Lymphocytes/100 WBC (Bld) 29.2 % Normal 10.0-50.0 [facility] ([place] Comment on above: Performed By: #### C ROMEO BRYANT, ANEU #### [address] [address] Monocyte, Absolute 0.5 10 3/mcL Normal 0.2-1.0 [facility] ([place] Comment on above: Performed By: #### C ROMEO BRYANT, ANEU #### [address] [address] Monocytes/100 WBC (Bld) 6.3 % Normal 1.7-13.0 [facility] ([place]) Comment on above: Performed By: #### C ROMEO BRYANT, ANEU #### [address] [address] Neutrophils/100 WBC (Bld) 62.0 % Normal 37.0-80.0 [facility] ([place] Comment on above: Performed By: #### C ROMEO BRYANT, ANEU #### [address] [address] .GFRon 02-03-2023 GFR 74 ml/min/1.73sqm Normal [facility] ([place] Comment on above: Result Comment: GFR Population [...] Performed By: #### C BCROMEO, ANEU #### [address] [address] GFR Non- 61 ml/min/1.73sqm Normal [facility] ([place] Comment on above: Result Comment: GFR Population [...] By: #### ROMEO FRANCIS ANEU #### [place] [address] [address] .NEUABSon 02-03-2023 Neutrophil, Absolute 4.7 10 3/mcL Normal 2.9-6.2 [facility] ([place] Comment on above: Performed By: #### ROMEO FRANCIS ANEU #### [address] [address] A1Con 02-03-2023 HbA1c (Bld) [Mass fraction] 6.7 % High 4.3-6.4 [facility] ([place]) Comment on above: Performed By: #### ROMEO FRANCIS ANEU #### [address] [address] ALBon 02-03-2023 Albumin Level 3.6 G/dL Normal 3.4-4.8 [facility] ([place] Comment on above: Performed By: #### ROMEO FRANCIS ANEU #### [address] [address] BMPon 02-03-2023 BUN/Creatinine Ratio 23 ratio Normal 7-27 [facility] ([place] Comment on above: Performed By: #### ROMEO FRANCIS ANEU #### [address] [address] Calcium [Mass/Vol] 8.9 mg/dL Normal 8.4-10.2 [facility] ([place] Comment on above: Performed By: #### C ROMEO BRYANT, ANEU #### [address] [address] Chloride [Moles/Vol] 100 mmol/L Normal 98-107 [facility] ([place] Comment on above: Performed By: #### C MANNY, ADIFF, ANEU #### [address] [address] CO2 [Moles/Vol] 30 mmol/L Normal 23-31 [facility] ([place] Comment on above: Performed By: #### C ROMEO BRYANT, ANEU #### [address] [address] Creatinine [Mass/Vol] 0.93 mg/dL Normal 0.55-1.02 [facility] ([place] Comment on above: Performed By: #### C ROMEO BRYANT, ANEU #### [address] [address] Electrolyte Balance 9.0 mEq/L Normal 4.0-15.0 [facility] ([place] Comment on above: Performed By: #### C ROMEO BRYANT, ANEU #### [address] [address] Glucose [Mass/Vol] 258 mg/dL High 80-115 [facility] ([place] Comment on above: Performed By: #### C MANNY, ROMEO, ANEU #### [address] [address] Potassium [Moles/Vol] 4.7 mmol/L Normal 3.5-5.1 [facility] ([place] Comment on above: Performed By: #### C MANNY, ROMEO, ANEU #### [address] [address] Sodium [Moles/Vol] 139 mmol/L Normal 136-145 [facility] ([place] Comment on above: Performed By: #### C MANNY, BELINDAIFF, ANEU #### [address] [address] Urea nitrogen [Mass/Vol] 21 mg/dL High 7-18 [facility] ([place] Comment on above: Performed By: #### C BC, ADIFF, ANEU #### [place] [id number] CBCon 02-03-2023 Erythrocyte distribution width (RBC) [Ratio] 15.2 % High 11.5-14.5 [facility] ([place]) Comment on above: Order Comment: Pre-A dmission Testing Performed By: #### C BC, ADIFF, ANEU #### [place] [id number] Hematocrit (Bld) [Volume fraction] 36.6 % Low 37.0-47.0 [facility] ([place]) Comment on above: Order Comment: Pre-A dmission Testing Performed By: #### C BC, ADKRISTIE, ANEU #### [place] [address] Hgb 12.0 G/dL Normal 12.0-16.0 [facility] ([place] Comment on above: Order Comment: Pre-A dmission Testing Performed By: #### C BC, ADKRISTIE, ANEU #### [place] [address] MCH (RBC) [Entitic mass] 29.5 pg Normal 27.0-31.2 [facility] ([place] Comment on above: Order Comment: Pre-A dmission Testing Performed By: #### C BC, ADIFF, ANEU #### [place] [address] MCHC 32.8 G/dL Low 33.0-37.0 [facility] ([place] Comment on above: Order Comment: Pre-A dmission Testing Performed By: #### C BC, ADIFF, ANEU #### [place] [id number] MCV (RBC) [Entitic vol] 90.0 fL Normal 80.0-94.0 [facility] ([place]) Comment on above: Order Comment: Pre-A dmission Testing Performed By: #### C BC, ADIFF, ANEU #### [place] [address] Platelet 234 10 3/mcL Normal 130-400 [facility] ([place] Comment on above: Order Comment: Pre-A dmission Testing Performed By: #### C BC, ADIFF, ANEU #### [place] [address], [place] [address] Platelet mean volume (Bld) [Entitic vol] 7.0 fL Low 7.4-10.4 [facility] ([place] Comment on above: Order Comment: Pre-A dmission Testing Performed By: #### C BC, ADIFF, ANEU #### [place] [address] [address] RBC 4.07 10 6/mcL Low 4.20-5.40 [facility] ([place] Comment on above: Order Comment: Pre-A dmission Testing Performed By: #### C BC, ADIFF, ANEU #### [place] [address] [address] WBC 7.5 10 3/mcL Normal 4.6-10.8 [facility] ([place] Comment on above: Order Comment: Pre-A dmission Testing Performed By: #### C BC, ADIFF, ANEU #### [place] [address] [address] Gel ABOon 02-03-2023 ABO/Rh Interp Negative Invalid Interpretation Code [facility] ([place]) Comment on above: Order Comment: SURG EDMOND 6/27 -AC Performed By: #### C BC, ADIFF, ANEU #### [place] [address] [address] Gel ABSon 02-03-2023 Antibody Screen Gel Negative Normal [facility] ([place]) Comment on above: Order Comment: SURG EDMOND 6/27 -AC Performed By: #### C BC, ADIFF, ANEU #### [place] [address] [address] LABORATORYOrdered By: Ann Marie Joiner on 02-03-2023 ABO/Rh Interp Negative Invalid Interpretation Code AO BB SS Antibody Screen Gel Negative ABSC (02/03/23 2:34 PM) Invalid Interpretation Code AO BB SS LABORATORYOrdered By: [employer] on 02-03-2023 Albumin BCP dye [Mass/Vol] [...] peptide B (Bld) [Mass/Vol] 14.9 pg/mL 0-100 [facility] Basophil percentageOrdered B y: Dr. Mckeon on 09-17-2022 Chloride [Moles/Vol] 97 mmol/L 98-107 [facility] Glucose [Mass/Vol] 146 mg/dL 74-106 [facility] Comment on above: Fasting Glucose resu lt greater than or equal to 126 mg/dL suggests DIABETES MELLITUS per A.D.A. criteria. Potassium [Moles/Vol] 3.6 mmol/L 3.5-5.1 [facility] Sodium [Moles/Vol] 139 mmol/L 136-145 [facility] Glucose Glucometer (BldC) [M ass/Vol]Ordered By: Dr. Anderson on 09-17-2022 Glucose [Mass/Vol] 129 mg/dL 74-106 [facility] Comment on above: MANAGEMENT OF PATIEN T CARE PER NURSING PROTOCOL Influenza virus A and B and SARS-CoV-2 (COVID-19) Ag panel - Upper respiratory specimOrdered By: Dr. Anderson on 09-17-2022 SARS-CoV-2 (COVID-19) RNA ROJELIO+probe Ql (Resp) [facility] Laboratory - Chemistry and C hemistry - challengeOrdered By: Dr. Mckeon on 09-17-2022 CO2 [Moles/Vol] 32.0 mmol/L 21.0-32.0 [facility] Urea nitrogen/Creatinine [Mass ratio] 18.4 mg/mg 10-20 [facility] No Panel InformationOrdered By: Dr. Mckeon on 09-17-2022 Estimated Creatinine Clearance Calc 56.41 ml/min [facility] Estimated GFR (MDRD) Amer 84 mL/min >60 [facility] Comment on above: GFR Calc Estimated GFR (MDRD) Non-Af Amer 70 mL/min >60 [facility] Comment on above: Non- GFR Calc Serum or plasma calcium dread urement (mass/volume)Ordered By: Dr. Mckeon on 09-17-2022 Calcium [Mass/Vol] 8.8 mg/dL 8.5-10.1 [facility] Serum or plasma creatinine m easurement (mass/volume)Ordered By: Dr. Mckeon on 09-17-2022 Creatinine [Mass/Vol] 0.87 mg/dL 0.55-1.02 [facility] Comment on above: The validity of the calculated GFR & GFRAA in patients over 70 years has not been determined. Clinical correlation is essential. Serum or plasma urea nitroge n measurement (mass/volume)Ordered By: Dr. Mckeon on 09-17-2022 Urea nitrogen [Mass/Vol] 16 mg/dL 7-18 [facility] Thin prep Papanicolaou smear with manual screeningOrdered By: Dr. Mckeon on 09-17-2022 Thin prep Papanicolaou smear with manual screening 10 5-15 [facility] Absolute lymphocyte countOrd ered By: Dr. Dee on 09-16-2022 Lymphocytes Auto (Unsp spec) [#/Vol] 1.58 10*3/uL 0.83-4.51 [facility] Assessment of wrist artery p atency prior to arterial punctureOrdered By: Dr. Dee on 09-16-2022 Arterial patency Wrist artery --pre arterial puncture Positive [facility] Base excessOrdered By: Dr. Krystin dean on 09-16-2022 Base excess Calc (BldV) [Moles/Vol] 7 mmol/L -2-2 [facility] Basophil percentageOrdered B y: Dr. Dee on 09-16-2022 Basophil percentage 31.9 mmol/L 22-26 [facility] Basophils/100 WBC (Bld) 95 % 95-99 [facility] Basophil percentage 0 SEEN /hpf 0-5 [facility] Basophils/100 WBC (Bld) 0.4 % 0-1 [facility] Eosinophils/100 WBC (Bld) 3.3 % 0-5 [facility] Neutrophils (Bld) [#/Vol] 5.8 10*3/uL 2.0-7.7 [facility] Neutrophils/100 WBC (Bld) 69.5 % 47-70 [facility] WBC (Bld) [#/Vol] 8.4 10*3/uL 4.4-11.0 [facility] Bilirubin Test strip Ql (U)O rdered By: Dr. Dee on 09-16-2022 Bilirubin Ql (U) Negative Negative [facility] Blood erythrocytes count (nu mber/volume)Ordered By: Dr. Dee on 09-16-2022 RBC (Bld) [#/Vol] 4.41 10*6/uL 4.2-5.4 [facility] Blood hemoglobin measurement (mass/volume)Ordered By: Dr. Dee on 09-16-2022 Hemoglobin (Bld) [Mass/Vol] 12.2 g/dL 12.0-15.0 [facility] Blood lymphocytes/100 leukoc ytesOrdered By: Dr. Dee on 09-16-2022 Lymphocytes/100 WBC (Bld) 18.8 % 19-41 [facility] Blood monocytes/100 leukocyt esOrdered By: Dr. Dee on 09-16-2022 Monocytes/100 WBC (Bld) 7.5 % 0-10 [facility] Blood platelet mean volumeOr dered By: Dr. Dee on 09-16-2022 Platelet mean volume (Bld) [Entitic vol] 10.1 fL 6.2-12.0 [facility] CO2 (BldA) [Partial pressure ]Ordered By: Dr. Dee on 09-16-2022 CO2 (Bld) [Partial pressure] 53.2 mm[Hg] 35-45 [facility] Determination of erythrocyte mean corpuscular volume (MCV)Ordered By: Dr. Dee on 09-16-2022 MCV (RBC) [Entitic vol] 90.0 fL 81-99 [facility] Hematocrit Auto (Bld) [Volum e fraction]Ordered By: Dr. Dee on 09-16-2022 Hematocrit (Bld) [Volume fraction] 39.7 % 37-47 [facility] Ketones Test strip Ql (U)Ord ered By: Dr. Dee on 09-16-2022 Ketones Ql (U) Negative Negative [facility] Laboratory - Chemistry and C hemistry - challengeOrdered By: Dr. Dee on 09-16-2022 Natriuretic peptide B (Bld) [Mass/Vol] 76.4 pg/mL 0-100 [facility] Laboratory - Hematology and Cell countsOrdered By: Dr. Dee on 09-16-2022 Erythrocyte distribution width (RBC) [Entitic vol] 45.8 fL 35.1-43.9 [facility] Erythrocyte distribution width (RBC) [Ratio] 14.1 % 11.6-14.6 [facility] Immature granulocytes/100 WBC (Bld) 0.500 % 0.0-0.9 [facility] Comment on above: IG% - Immature Granu locytes (promyelocytes, myelocytes and metamyelocytes) > 1% indicates that a LEFT SHIFT is Present. MCH (RBC) [Entitic mass] 27.7 pg 27.0-32.0 [facility] Nucleated RBC/100 WBC (Bld) [Ratio] 0 % 0-5 [facility] MCHC Auto (RBC) [Mass/Vol]Or dered By: Dr. Dee on 09-16-2022 MCHC (RBC) [Mass/Vol] 30.7 g/dL 32-36 [facility] Mucus LM Ql (Urine sed)Order ed By: Dr. Dee on 09-16-2022 Mucus Ql (Urine sed) 0 SEEN /hpf [facility] Nitrite Test strip Ql (U)Ord ered By: Dr. Dee on 09-16-2022 Nitrite Ql (U) Negative Negative [facility] No Panel InformationOrdered By: Dr. Dee on 09-16-2022 Blood Gas Liter Flow 2.0 /min [facility] Blood Gas Sample Site L Radial [facility] Blood Gas Specimen Type ART [facility] Blood Gas Total CO2 34 mmol/L [facility] Oxygen Delivery Device Cannula [facility] Troponin I High Sensitivity 6 pg/mL 3.0-54.0 [facility] Comment on above: Please Note: New Selene t Units and Gender Specific Reference Ranges. For more information see Policy Stat Procedure [place] High Sensitivity Troponin (TNIH) and attachments. Oxygen (BldA) [Partial press ure]Ordered By: Dr. Dee on 09-16-2022 Oxygen (Bld) [Partial pressure] 79 mmHG 75-100 [facility] Platelets bldOrdered By: Dr. Dee on 09-16-2022 Platelets (Bld) [#/Vol] 254 10*3/uL 150-450 [facility] Protein Test strip Ql (U)Ord ered By: Dr. Dee on 09-16-2022 Protein Ql (U) Negative Negative [facility] Squamous epithelial cells de tection in urine sediment by light microscopyOrdered By: Dr. Dee on 09-16-2022 Epithelial cells.squamous LM Ql (Urine sed) 0-5 SEEN /hpf 5-10 [facility] Urine blood detectionOrdered By: Dr. Dee on 09-16-2022 RBC Ql (U) Negative Negative [facility] RBC Ql (U) 0 SEEN /hpf 0-5 [facility] Urine clarityOrdered By: Dr. Dee on 09-16-2022 Clarity (U) Clear Clear [facility] Urine color determinationOrd ered By: Dr. Dee on 09-16-2022 Color (U) Yellow Yellow [facility] Urine glucose detectionOrder ed By: Dr. Dee on 09-16-2022 Glucose Ql (U) Normal mg/dl Normal [facility] Urine leukocyte esterase det ection by dipstickOrdered By: Dr. Dee on 09-16-2022 Leukocyte esterase Test strip Ql (U) Negative Negative [facility] Urine pHOrdered By: Dr. Lloyd joshi on 09-16-2022 pH (U) 7.0 [pH] 5.0 - 8.0 [facility] Urine sediment bacteria coun t by microscopy (number/high power field)Ordered By: Dr. Dee on 09-16-2022 Bacteria LM.HPF (Urine sed) [#/Area] 0 /[HPF] None Seen [facility] Urine specific gravity measu rementOrdered By: Dr. Dee on 09-16-2022 Specific gravity (U) [Rel density] 1.005 1.002-1.030 [facility] Urobilinogen Auto test strip Ql (U)Ordered By: Dr. Dee on 09-16-2022 Urobilinogen Ql (U) Normal mg/dl Normal [facility] pH measurementOrdered By: Dr Nikhil Dee on 09-16-2022 pH (Unsp spec) 7.39 [pH] 7.35-7.45 [facility] No Panel InformationOrdered By: Dr. Shaw on 09-15-2022 D-Dimer Quantitative (PE/DVT) 0.65 FEU/ug/m 0.27-0.49 [facility] Comment on above: D-Dimer ELEVATED (>0 .49): Additional studies and clinicalassessments are indicated to conclude diagnosis of:Deep Vein Thrombosis (DVT) or Pulmonary Embolism (PE)CRITICAL VALUE VERIFIED. CALLED TO SHELDON CHILEL09/15/22 Ildefonso Leal.RESULTS READ BACK BY SAME. Laboratory - Hematology and Cell countson 09-13-2022 HbA1c (Bld) [Mass fraction] 7.1 % [facility] Laboratory - Drug toxicology Ordered By: Dr. Trejo on 07-07-2022 Amphetamines Ql (U) Negative <1000 ng/mL [facility] Benzodiazepines Ql (U) Negative < 200 ng/mL [facility] Cannabinoids Screen Ql (U) Negative < 50 ng/mL [facility] Cocaine Ql (U) Negative < 300 ng/mL [facility] Opiates Ql (U) Positive < 300 ng/mL [facility] No Panel InformationOrdered By: Dr. Trejo on 07-07-2022 MDMA (Ecstasy) Screen Negative < 500 ng/mL [facility] Miscellaneous Test See comment [facility] Comment on above: [id number] 6+OXYCODONE-B UND (ng/mL) DRUG RESULT SCREEN CUTOFF____ [...] Urine Barbiturates Screen Negative < 200 ng/mL [facility] Urine Drug Screen Comment [facility] Comment on above: CONFIRMATORY TESTING [...] TESTING MUST BE ORDERED SEPARATELY. USE TESTMNEMONIC: [facility] Urine Methadone Screen Negative < 300 ng/mL [facility] Urine phencyclidine (PCP) de tectionOrdered By: Dr. Trejo on 07-07-2022 Phencyclidine Ql (U) Negative < 25 ng/mL [facility] ERICA Telephone (ANDRE) FLEX WOOTEN ([id number]) 1960 F Date Time Provider Department 06/23/22 NICOLÁS AGGARWAL During your visit today, we recorded the following information about you: Mendy Adams RN 06/23/2022 8:51 AM Signed I left a message for Tessie at [employer] regarding their addendum request. 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] 05/19/2022 Diabetic neuropathy, painful (HCC) [E11.40] 05/19/2022 Acquired valgus deformity of left ankle [M21.07*05/19/2022 Encounter Status:Closed by MENDY ADAMS RN on 06/25/22 [facility] CNOVon 05-19-2022 CNOV Office Visit (ORAVON ) FLEX WOOTEN ([id number]) 1960 F Date Time Provider Department 05/19/22 [...] Date DVT (deep venous thrombosis) ([facility]) 2013 post knee replacement Fibromyalgia Hemorrhage of gastrointestinal tract, unspecified Hemorrhage of rectum and anus Internal hemorrhoids without mention of complication Other forms of migraine Other unspecified back disorder Pulmonary embolism ([facility]) 2013 PAST SURGICAL HISTORY Procedure Laterality [...] left knee -- meniscus repair; Dr. Weller [facility] SIGMOIDOSCOPY FLX DX W/COLLJ SPEC BR/WA [...] Worsening Previous (more content not included)... Normal [facility] Laboratory - Hematology and Cell countson 05-19-2022 HbA1c (Bld) [Mass fraction] 7.5 % [facility] Work Phone: XR FOOT 3V [...] noted. IMPRESSION: Remote postoperative and degenerative changes. Health Associate: PSCB Transcribe Date/Time: May 19 2022 10:24A Dictated by : ARACELY COATES MD This examination was interpreted and the report reviewed and electronically signed by: ARACELY COATES MD on May 19 2022 10:25AM EST [id number] Normal [facility] XR FOOT GENERAL 3V AP/LAT/OB L LEFTon 05-19-2022 [facility] Absolute lymphocyte counton 01-31-2022 Lymphocytes Auto (Unsp spec) [#/Vol] 0.87 10*3/uL 0.83-4.51 [facility] Work Phone: Basophil percentageon 2021 Basophil percentage 0 SEEN /hpf [facility] Work Phone: Basophils/100 WBC (Bld) 0.4 % 0-1 [facility] Work Phone: Bilirubin [Mass/Vol] 0.30 mg/dL 0.20-1.00 [facility] Work Phone: Comment on above: For patients on eltr ombopag therapy, use of Dimension [place] TBIL is not recommended. Chloride [Moles/Vol] 103 mmol/L 98-107 [facility] Work Phone: [phone] Eosinophils/100 WBC (Bld) 0.0 % 0-5 [facility] Work Phone: Glucose [Mass/Vol] 545 mg/dL 74-106 [facility] Work Phone: Comment on above: Critical Result(s) C alled at: 00:43:30 01/31/2022 by: PERRY IGLESIAS TO RICA STEPHEN. Results read back by same.Glucose result greater than or equal to 200 mg/dLsuggests DIABETES MELLITUS per A.D.A. criteria. Neutrophils (Bld) [#/Vol] 7.0 10*3/uL 2.0-7.7 [facility] Work Phone: Neutrophils/100 WBC (Bld) 78.6 % 47-70 [facility] Work Phone: Potassium [Moles/Vol] 4.6 mmol/L 3.5-5.1 [facility] Work Phone: Comment on above: Moderate Hemolysis, Result may be falsely increased. Protein [Mass/Vol] 7.4 g/dL 6.4-8.2 [facility] Work Phone: Sodium [Moles/Vol] 135 mmol/L 136-145 [facility] Work Phone: WBC (Bld) [#/Vol] 8.9 10*3/uL 4.4-11.0 [facility] Work Phone: Bilirubin Test strip Ql (U)o n 01-31-2022 Bilirubin Ql (U) Negative Negative [facility] Work Phone: Blood erythrocytes count (nu mber/volume)on 01-31-2022 RBC (Bld) [#/Vol] 4.98 10*6/uL 4.2-5.4 [facility] Work Phone: Blood hemoglobin measurement (mass/volume)on 01-31-2022 Hemoglobin (Bld) [Mass/Vol] 13.5 g/dL 12.0-15.0 [facility] Work Phone: Blood lymphocytes/100 leukoc yteson 01-31-2022 Lymphocytes/100 WBC (Bld) 9.8 % 19-41 [facility] Work Phone: Blood monocytes/100 leukocyt eson 01-31-2022 Monocytes/100 WBC (Bld) 6.4 % 0-10 [facility] Work Phone: Blood platelet mean volumeon 01-31-2022 Platelet mean volume (Bld) [Entitic vol] 9.6 fL 6.2-12.0 [facility] Work Phone: Determination of erythrocyte mean corpuscular volume (MCV)on 01-31-2022 MCV (RBC) [Entitic vol] 85.7 fL 81-99 [facility] Work Phone: Glucose Glucometer (BldC) [M ass/Vol]on 01-31-2022 Glucose [Mass/Vol] 399 mg/dL 74-106 [facility] Work Phone: Comment on above: MANAGEMENT OF PATIEN T CARE PER NURSING PROTOCOL HCO3 (BldA) [Moles/Vol]on HCO3 (Bld) [Moles/Vol] 25 mmol/L 22-26 [facility] Work Phone: Hematocrit Auto (Bld) [Volum e fraction]on 01-31-2022 Hematocrit (Bld) [Volume fraction] 42.7 % 37-47 [facility] Work Phone: Ketones Test strip Ql (U)on 01-31-2022 Ketones Ql (U) Negative Negative [facility] Work Phone: Laboratory - Chemistry and C hemistry - challengeon 01-31-2022 CO2 [Moles/Vol] 26 mmol/L 23-33 [facility] Work Phone: ALP [Catalytic activity/Vol] 89 U/L 45-117 [facility] Work Phone: ALT [Catalytic activity/Vol] 44 U/L 13-56 [facility] Work Phone: CO2 [Moles/Vol] 26.0 mmol/L 21.0-32.0 [facility] Work Phone: Globulin (S) [Mass/Vol] 4.0 g/dL 2.2-4.2 [facility] Work Phone: Urea nitrogen/Creatinine [Mass ratio] 24.0 mg/mg 10-20 [facility] Work Phone: Laboratory - Hematology and Cell countson 01-31-2022 Erythrocyte distribution width (RBC) [Entitic vol] 46.8 fL 35.1-43.9 [facility] Work Phone: Erythrocyte distribution width (RBC) [Ratio] 14.9 % 11.6-14.6 [facility] Work Phone: Immature granulocytes/100 WBC (Bld) 4.800 % 0.0-0.9 [facility] Work Phone: Comment on above: IG% - Immature Granu locytes (promyelocytes, myelocytes and metamyelocytes) > 1% indicates that a LEFT SHIFT is Present. MCH (RBC) [Entitic mass] 27.1 pg 27.0-32.0 [facility] Work Phone: Nucleated RBC/100 WBC (Bld) [Ratio] 0 % 0-5 [facility] Work Phone: MCHC Auto (RBC) [Mass/Vol]on 01-31-2022 MCHC (RBC) [Mass/Vol] 31.6 g/dL 32-36 [facility] Work Phone: Mucus LM Ql (Urine sed)on Mucus Ql (Urine sed) 0 SEEN /hpf [facility] Work Phone: Nitrite Test strip Ql (U)on 01-31-2022 Nitrite Ql (U) Negative Negative [facility] Work Phone: No Panel Informationon 01-31 Bed Mix Venous Bld PCO2 at Pat Temp 43.6 mmHg 41-51 [facility] Work Phone: Blood Gas Specimen Type REJI [facility] Work Phone: Venous Blood Base Excess -1 mmol/L -1.0-3.5 [facility] Work Phone: Estimated Creatinine Clearance Calc 39.78 ml/min [facility] Work Phone: Estimated GFR (MDRD) Amer 56 mL/min >60 [facility] Work Phone: Comment on above: GFR Calc Estimated GFR (MDRD) Non-Af Amer 46 mL/min >60 [facility] Work Phone: Comment on above: Non- GFR Calc PO2 venouson 01-31-2022 Oxygen (BldV) [Partial pressure] 42 mm[Hg] 25-40 [facility] Work Phone: Platelets bldon 01-31-2022 Platelets (Bld) [#/Vol] 317 10*3/uL 150-450 [facility] Work Phone: Protein Test strip Ql (U)on 01-31-2022 Protein Ql (U) Negative Negative [facility] Work Phone: Serum or plasma acetone dread urement (mass/volume)on 01-31-2022 Acetone [Mass/Vol] Negative NEG [facility] Work Phone: Serum or plasma albumin dread urement (mass/volume)on 01-31-2022 Albumin [Mass/Vol] 3.4 g/dL 3.2-5.0 [facility] Work Phone: Serum or plasma albumin/glob ulin mass ratioon 01-31-2022 Albumin/Globulin [Mass ratio] 0.8 {ratio} 0.9-2.4 [facility] Work Phone: Serum or plasma calcium dread urement (mass/volume)on 01-31-2022 Calcium [Mass/Vol] 8.7 mg/dL 8.5-10.1 [facility] Work Phone: Serum or plasma creatinine m easurement (mass/volume)on 01-31-2022 Creatinine [Mass/Vol] 1.25 mg/dL 0.55-1.02 [facility] Work Phone: Comment on above: The validity of the calculated GFR & GFRAA in patients over 70 years has not been determined. Clinical correlation is essential. Serum or plasma urea nitroge n measurement (mass/volume)on 01-31-2022 Urea nitrogen [Mass/Vol] 30 mg/dL 7-18 [facility] Work Phone: Squamous epithelial cells de tection in urine sediment by light microscopyon 01-31-2022 Epithelial cells.squamous LM Ql (Urine sed) 0 SEEN /hpf [facility] Work Phone: Thin prep Papanicolaou smear with manual screeningon 01-31-2022 Thin prep Papanicolaou smear with manual screening 20 U/L 15-37 [facility] Work Phone: Comment on above: Moderate Hemolysis, Result may be falsely increased. Thin prep Papanicolaou smear with manual screening 6 5-15 [facility] Work Phone: Urine blood detectionon RBC Ql (U) Negative Negative [facility] Work Phone: RBC Ql (U) 0 SEEN /hpf [facility] Work Phone: Urine clarityon 01-31-2022 Clarity (U) Clear Clear [facility] Work Phone: Urine color determinationon 01-31-2022 Color (U) Straw Yellow [facility] Work Phone: Urine glucose detectionon Glucose Ql (U) 1000 mg/dl Normal [facility] Work Phone: Urine leukocyte esterase det ection by dipstickon 01-31-2022 Leukocyte esterase Test strip Ql (U) Negative Negative [facility] Work Phone: Urine pHon 01-31-2022 pH (U) 6.0 [pH] [facility] Work Phone: Urine sediment bacteria coun t by microscopy (number/high power field)on 01-31-2022 Bacteria LM.HPF (Urine sed) [#/Area] 0 /[HPF] None Seen [facility] Work Phone: Urine specific gravity measu rementon 01-31-2022 Specific gravity (U) [Rel density] 1.015 [facility] Work Phone: Urobilinogen Auto test strip Ql (U)on 01-31-2022 Urobilinogen Ql (U) Normal mg/dl Normal [facility] Work Phone: Vital signson 01-31-2022 Oxygen saturation in Blood 76 % 50-70 [facility] Work Phone: pH measurementon 01-31-2022 pH (Unsp spec) 7.36 [pH] 7.32-7.42 [facility] Work Phone: Absolute lymphocyte counton 01-25-2022 Lymphocytes Auto (Unsp spec) [#/Vol] 1.06 10*3/uL 0.83-4.51 [facility] Work Phone: Basophil percentageon 2021 Basophils/100 WBC (Bld) 0.7 % 0-1 [facility] Work Phone: Chloride [Moles/Vol] 104 mmol/L 98-107 [facility] Work Phone: Eosinophils/100 WBC (Bld) 2.9 % 0-5 [facility] Work Phone: Glucose [Mass/Vol] 166 mg/dL 74-106 [facility] Work Phone: Comment on above: Fasting Glucose resu lt greater than or equal to 126 mg/dL suggests DIABETES MELLITUS per A.D.A. criteria. Neutrophils (Bld) [#/Vol] 4.2 10*3/uL 2.0-7.7 [facility] Work Phone: [phone] Neutrophils/100 WBC (Bld) 68.9 % 47-70 [facility] Work Phone: Potassium [Moles/Vol] 4.1 mmol/L 3.5-5.1 [facility] Work Phone: Sodium [Moles/Vol] 139 mmol/L 136-145 [facility] Work Phone: WBC (Bld) [#/Vol] 6.1 10*3/uL 4.4-11.0 [facility] [facility] Work [facility]: Blood erythrocytes count (nu mber/volume)on 01-25-2022 RBC (Bld) [#/Vol] 4.60 10*6/uL 4.2-5.4 [place] [facility] Work Phone: Blood hemoglobin measurement (mass/volume)on 01-25-2022 Hemoglobin (Bld) [Mass/Vol] 12.3 g/dL 12.0-15.0 [facility] Work Phone: Blood lymphocytes/100 leukoc yteson 01-25-2022 Lymphocytes/100 WBC (Bld) 17.3 % 19-41 [facility] Work Phone: Blood monocytes/100 leukocyt eson 01-25-2022 Monocytes/100 WBC (Bld) 9.9 % 0-10 [facility] Work Phone: Blood platelet mean volumeon 01-25-2022 Platelet mean volume (Bld) [Entitic vol] 9.2 fL 6.2-12.0 [facility] Work Phone: Determination of erythrocyte mean corpuscular volume (MCV)on 01-25-2022 MCV (RBC) [Entitic vol] 87.8 fL 81-99 [facility] Work Phone: Hematocrit Auto (Bld) [Volum e fraction]on 01-25-2022 Hematocrit (Bld) [Volume fraction] 40.4 % 37-47 [facility] Work Phone: Laboratory - Chemistry and C hemistry - challengeon 01-25-2022 CO2 [Moles/Vol] 31.0 mmol/L 21.0-32.0 [facility] Work Phone: Urea nitrogen/Creatinine [Mass ratio] 11.1 mg/mg 10-20 [facility] Work Phone: Laboratory - Hematology and Cell countson 01-25-2022 Erythrocyte distribution width (RBC) [Entitic vol] 50.0 fL 35.1-43.9 [facility] Work Phone: Erythrocyte distribution width (RBC) [Ratio] 15.7 % 11.6-14.6 [facility] Work Phone: Immature granulocytes/100 WBC (Bld) 0.300 % 0.0-0.9 [facility] Work Phone: Comment on above: IG% - Immature Granu locytes (promyelocytes, myelocytes and metamyelocytes) > 1% indicates that a LEFT SHIFT is Present. MCH (RBC) [Entitic mass] 26.7 pg 27.0-32.0 [facility] Work Phone: Nucleated RBC/100 WBC (Bld) [Ratio] 0 % 0-5 [facility] Work Phone: MCHC Auto (RBC) [Mass/Vol]on 01-25-2022 MCHC (RBC) [Mass/Vol] 30.4 g/dL 32-36 [facility] Work Phone: No Panel Informationon 01-25 D-Dimer Quantitative (PE/DVT) 0.85 FEU/ug/m 0.27-0.49 [facility] Work Phone: Comment on above: RESULTS CALLED TO LAVINIA RODRÍGUEZ RN 01/25/22 3260 Rubina Chairez.REPORT READ BACK BY SAME.D-Dimer ELEVATED (>0.49): Additional studies and clinicalassessments are indicated to conclude diagnosis of:Deep Vein Thrombosis (DVT) or Pulmonary Embolism (PE) Estimated Creatinine Clearance Calc 61.39 ml/min [facility] Work Phone: Estimated GFR (MDRD) Amer 91 mL/min >60 [facility] Work Phone: Comment on above: GFR Calc Estimated GFR (MDRD) Non-Af Amer 75 mL/min >60 [facility] Work Phone: Comment on above: Non- GFR Calc Troponin I High Sensitivity < 3 pg/mL 3.0-54.0 [facility] Work Phone: Comment on above: Please Note: New Selene t Units and Gender Specific Reference Ranges. For more information see Policy Stat Procedure [place] High Sensitivity Troponin (TNIH) and attachments. SARS-CoV-2 & FLU Antigen (Rapid) SARS-CoV-2 (COVID 19) [facility] Work Phone: Platelets bldon 01-25-2022 Platelets (Bld) [#/Vol] 181 10*3/uL 150-450 [facility] Work Phone: Serum or plasma calcium dread urement (mass/volume)on 01-25-2022 Calcium [Mass/Vol] 8.5 mg/dL 8.5-10.1 [facility] Work Phone: Serum or plasma creatinine m easurement (mass/volume)on 01-25-2022 Creatinine [Mass/Vol] 0.81 mg/dL 0.55-1.02 [facility] Work Phone: Comment on above: The validity of the calculated GFR & GFRAA in patients over 70 years has not been determined. Clinical correlation is essential. Serum or plasma urea nitroge n measurement (mass/volume)on 01-25-2022 Urea nitrogen [Mass/Vol] 9 mg/dL 7-18 [facility] Work Phone: Thin prep Papanicolaou smear with manual screeningon 01-25-2022 Thin prep Papanicolaou smear with manual screening 4 5-15 [facility] Work Phone: Culture, urineon 11-12-2021 Bacteria identified Cx Nom (U) Presumptive Lactobacillus sp. [facility] Work Phone: Absolute lymphocyte counton 11-10-2021 Lymphocytes Auto (Unsp spec) [#/Vol] 1.61 10*3/uL 0.83-4.51 [facility] Work Phone: Basophil percentageon 2021 Basophils/100 WBC (Bld) 0.7 % 0-1 [facility] Work Phone: [phone] Chloride [Moles/Vol] 102 mmol/L 98-107 [facility] Work Phone: [phone] Eosinophils/100 WBC (Bld) 3.1 % 0-5 [facility] Work Phone: [phone] Glucose [Mass/Vol] 281 mg/dL 74-106 [facility] Work Phone: [phone] Comment on above: Glucose result great er than or equal to 200 mg/dLsuggests DIABETES MELLITUS per A.D.A. criteria. Neutrophils (Bld) [#/Vol] 3.7 10*3/uL 2.0-7.7 [facility] Work Phone: Neutrophils/100 WBC (Bld) 60.3 % 47-70 [facility] Work Phone: [phone] Potassium [Moles/Vol] 4.1 mmol/L 3.5-5.1 [facility] Work [facility]: [phone] Sodium [Moles/Vol] 138 mmol/L 136-145 [facility] Work Phone: [phone] WBC (Bld) [#/Vol] 6.1 10*3/uL 4.4-11.0 [facility] Work Phone: Blood erythrocytes count (nu mber/volume)on 11-10-2021 RBC (Bld) [#/Vol] 4.46 10*6/uL 4.2-5.4 [facility] Work Phone: [phone] Blood hemoglobin measurement (mass/volume)on 11-10-2021 Hemoglobin (Bld) [Mass/Vol] 11.8 g/dL 12.0-15.0 [facility] Work Phone: [phone] Blood lymphocytes/100 leukoc yteson 11-10-2021 Lymphocytes/100 WBC (Bld) 26.3 % 19-41 [facility] Work Phone: Blood monocytes/100 leukocyt eson 11-10-2021 Monocytes/100 WBC (Bld) 9.1 % 0-10 [facility] Work Phone: Blood platelet mean volumeon 11-10-2021 Platelet mean volume (Bld) [Entitic vol] 9.2 fL 6.2-12.0 [facility] Work Phone: Determination of erythrocyte mean corpuscular volume (MCV)on 11-10-2021 MCV (RBC) [Entitic vol] 83.9 fL 81-99 [facility] Work Phone: Hematocrit Auto (Bld) [Volum e fraction]on 11-10-2021 Hematocrit (Bld) [Volume fraction] 37.4 % 37-47 [facility] Work Phone: Laboratory - Chemistry and C hemistry - challengeon 11-10-2021 Magnesium [Mass/Vol] 1.7 mg/dL 1.6-2.6 [facility] Work Phone: CO2 [Moles/Vol] 30.0 mmol/L 21.0-32.0 [facility] Work Phone: Urea nitrogen/Creatinine [Mass ratio] 14.9 mg/mg 10-20 [facility] Work Phone: Laboratory - Hematology and Cell countson 11-10-2021 Erythrocyte distribution width (RBC) [Entitic vol] 50.7 fL 35.1-43.9 [facility] Work Phone: Erythrocyte distribution width (RBC) [Ratio] 16.8 % 11.6-14.6 [facility] Work Phone: Immature granulocytes/100 WBC (Bld) 0.500 % 0.0-0.9 [facility] Work Phone: Comment on above: IG% - Immature Granu locytes (promyelocytes, myelocytes and metamyelocytes) > 1% indicates that a LEFT SHIFT is Present. MCH (RBC) [Entitic mass] 26.5 pg 27.0-32.0 [facility] Work Phone: Nucleated RBC/100 WBC (Bld) [Ratio] 0 % 0-5 [facility] Work Phone: MCHC Auto (RBC) [Mass/Vol]on 11-10-2021 MCHC (RBC) [Mass/Vol] 31.6 g/dL 32-36 [facility] Work Phone: No Panel Informationon 11-10 Thyroid Stimulating Hormone (TSH) 3.14 uIU/mL 0.358-3.74 [facility] Work Phone: Estimated GFR (MDRD) Amer 71 mL/min >60 [facility] Work Phone: Comment on above: GFR Calc Estimated GFR (MDRD) Non-Af Amer 59 mL/min >60 [facility] Work Phone: Comment on above: Non- GFR Calc Nasal Screen MRSA/MSSA [facility] Work Phone: Platelets bldon 11-10-2021 Platelets (Bld) [#/Vol] 261 10*3/uL 150-450 [facility] Work Phone: Serum or plasma albumin dread urement (mass/volume)on 11-10-2021 Albumin [Mass/Vol] 3.4 g/dL 3.2-5.0 [facility] Work Phone: Serum or plasma calcium dread urement (mass/volume)on 11-10-2021 Calcium [Mass/Vol] 9.1 mg/dL 8.5-10.1 [facility] Work Phone: Serum or plasma creatinine m easurement (mass/volume)on 11-10-2021 Creatinine [Mass/Vol] 1.01 mg/dL 0.55-1.02 [facility] Work Phone: Comment on above: The validity of the calculated GFR & GFRAA in patients over 70 years has not been determined. Clinical correlation is essential. Serum or plasma urea nitroge n measurement (mass/volume)on 11-10-2021 Urea nitrogen [Mass/Vol] 15 mg/dL 7-18 [facility] Work Phone: Thin prep Papanicolaou smear with manual screeningon 11-10-2021 Thin prep Papanicolaou smear with manual screening 6 5-15 [facility] Work Phone: Whole blood hemoglobin A1c/t otal hemoglobin ratio (mass fraction)on 11-10-2021 HbA1c (Bld) [Mass fraction] 8.0 % 3.8-5.6 [facility] Work Phone: Comment on above: Normal < 5.7 % Predi abetic 5.7 - 6.4 % Diabetic >or= 6.5 % Please note range changes. Glucose Glucometer (BldC) [M ass/Vol]on 09-25-2021 Glucose [Mass/Vol] 136 mg/dL 70-110 [facility] Work Phone: Comment on above: MANAGEMENT OF PATIEN T CARE PER NURSING PROTOCOL Basophil percentageon 2020 WBC (Bld) [#/Vol] 7.1 10*3/uL 4.4-11.0 [facility] Work Phone: Blood erythrocytes count (nu mber/volume)on 08-07-2021 RBC (Bld) [#/Vol] 4.56 10*6/uL 4.2-5.4 [facility] Work Phone: Blood hemoglobin measurement (mass/volume)on 08-07-2021 Hemoglobin (Bld) [Mass/Vol] 12.0 g/dL 12.0-15.0 [facility] Work Phone: Blood platelet mean volumeon 08-07-2021 Platelet mean volume (Bld) [Entitic vol] 9.9 fL 6.2-12.0 [facility] Work Phone: Determination of erythrocyte mean corpuscular volume (MCV)on 08-07-2021 MCV (RBC) [Entitic vol] 86.8 fL 81-99 [facility] Work Phone: Hematocrit Auto (Bld) [Volum e fraction]on 08-07-2021 Hematocrit (Bld) [Volume fraction] 39.6 % 37-47 [facility] Work Phone: Laboratory - Hematology and Cell countson 08-07-2021 Erythrocyte distribution width (RBC) [Entitic vol] 47.4 fL 35.1-43.9 [facility] Work Phone: Erythrocyte distribution width (RBC) [Ratio] 15.2 % 11.6-14.6 [facility] Work Phone: MCH (RBC) [Entitic mass] 26.3 pg 27.0-32.0 [facility] Work Phone: MCHC Auto (RBC) [Mass/Vol]on 08-07-2021 MCHC (RBC) [Mass/Vol] 30.3 g/dL 32-36 [facility] Work Phone: Platelets bldon 08-07-2021 Platelets (Bld) [#/Vol] 291 10*3/uL 150-450 [facility] Work Phone: Provider Note - [...] made to minimize errors. Minor errors in supervisor [place] [place] [employer] may be present. Please call if questions.. [...] From Triage - ED 21-May-2021 20:35 [facility] VAS LAB Venous Duplex Ultra sound DVTon 05-22-2021 VAS LAB Venous [place] [address] [phone], Vascular Lab Report Lower Venous Duplex Ultrasound Patient Name: FLEX Hernández Physician: [id number] Hector Vegas MD Study Date: 05/22/2021 Referring Physician: [id number] SILVANA HENDERSON MRN/PID: [id number] PCP: Accession/Order#: [id number] CC Report to: Date of : 1960 Technologist: Gladis Campbell RVT Gender: F Technologist 2: Admission Status: Outpatient Location Performed: [facility] Diagnosis/ICD: M79.605-Pain in left leg; M79.89-Left leg swelling Procedure/CPT: 69888 Peripheral venous duplex scan for DVT Limited-92496 Pertinent History: Leg pain and LE Edema. [...] Spontaneous/Phasic Peroneal Yes None PTV Yes None [id number] Hector Vegas MD Final [facility] Triage - EDon 05-21-2021 Triage - [...] Updated: 21-May-2021 20:40 by Demetrio Cerda (SAM) [facility] BASIC METABOLIC PANELon - Anion gap [Moles/Vol] 13 mmol/L Normal 10 - 20 [facility] Comment on above: Performed By: #### B MP #### [address] [address] Calcium [Mass/Vol] 9.4 mg/dL Normal 8.6 - 10.3 [facility] Comment on above: Performed By: #### B MP #### [address] [address] Chloride [Moles/Vol] 96 mmol/L Low 98 - 107 [facility] Comment on above: Performed By: #### B MP #### [address] [address] Creatinine [Mass/Vol] 0.92 mg/dL Normal 0.50 - 1.05 [facility] Comment on above: Performed By: #### B MP #### [address] [address] GFR- AM. >60 Normal >60 [facility] Comment on above: Result Comment: CALC ULATIONS OF ESTIMATED GFR ARE PERFORMED USING THE MDRD STUDY EQUATION FOR THE IDMS-TRACEABLE CREATININE METHODS. CLIN CHEM 2007;53:766-72 Performed By: #### B MP #### [address] [address] GFR-NON AM. >60 Normal >60 [facility] Comment on above: Performed By: #### B MP #### [address] [address] Glucose [Mass/Vol] 342 mg/dL High 74 - 99 [facility] Comment on above: Performed By: #### B MP #### [address] [address] HCO3 (Bld) [Moles/Vol] 28 mmol/L Normal 21 - 32 [facility] Comment on above: Performed By: #### B MP #### [address] [address] Potassium [Moles/Vol] 4.8 mmol/L Normal 3.5 - 5.3 [facility] Comment on above: Performed By: #### B MP #### [address] [address] Sodium [Moles/Vol] 132 mmol/L Low 136 - 145 [facility] Comment on above: Performed By: #### B MP #### [address] [address] Urea nitrogen [Mass/Vol] 18 mg/dL Normal 6 - 23 [facility] Comment on above: Performed By: #### B MP #### [address] [address] GLUCOSE-POCTon 02-13-2021 Glucose [Mass/Vol] 332 mg/dL High 74 - 99 [facility] Comment on above: Performed By: #### G TAYE #### [address] [address] Provider Note - ED v2on 01-27 Provider [...] Alert and oriented x4, GCS 15 , ux interaction designer II-XII grossly intact. 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 No meds relief captain . Patient does not know meds [...] SIGNS: T PRBP SpO2O2(LPM) %FiO2 Method 13-Feb-2021 03:12:00-8583706/73 92 room air, no respiratory support 13-Feb-2021 01:16:00-4100607/59 92 room air, no respiratory support 13-Feb-2021 00:01:00-36.73364097/76 95 room air, no respiratory support MEDICAL [...] Referenced From Triage - ED 13-Feb-2021 00:01 [facility] Risk Screen - Adult Emergenc yon [...] instruction; written material Cultural Considerationsnone Developmental Considerationsnone Christianity Considerationsnone Learning Assessment (Other Learner): Learning Assessment (Other Learner): Other learner availableno Pressure Injury/TB/Substance: Pressure Injury: Do you have a coughno Substance Use Current or Former Historynever: Cigarette/Tobacco, e-Cigarette/Vaping, Alcohol, Street Drugs Admission Risk Screen: Significant IndicatorsComplete CAGE: CAGE: Is this an injured patient at a Trauma Center ([place]): no Electronic Signatures: Tigist Yoder (RN) (Signed 13-Feb-2021 00:07) Authored: Preferred Language, Advanced Directives, Family Violence Adult, Learning Assessment (Patient), Learning Assessment (Other Learner), Pressure Injury/TB/Substance, Pressure Injury, CAGE Last Updated: 13-Feb-2021 00:07 by Tigist Yoder (RN) [facility] Triage - EDon 02-13-2021 Triage - ED Chart Review: ARRIVAL INFORMATION Mode of Arrival: private vehicle CHIEF COMPLAINT FLEX TABARES is a Female patient with a chief complaint of hyperglycemia (Patient states, My sugar has been up the past 4-5 days. It's so high my meter wont register. I had a steroid shot today around 2pm. No meds relief captain . 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 BS at 6pm: 399, 7:30pm: HI, 8:30PM: HI, 9:15pm: 492, 1010pm: 409. In triage: 332). Triage Date/Time: 13-Feb-2021 00:01 ROSALBA: 3V Vital Signs: Temperature: 97.3F ( 36.2C) taken oral Blood Pressure: 125/76 Mean: Heart Rate: 64 Respiratory Rate: 18 Pulse Oximetry: 95% on room air, no respiratory support. Duarte Coma Scale: Best Eye Response: (E4) spontaneous [...] Updated: 13-Feb-2021 00:06 by Tigist Yoder (SAM) [facility] OPERATIVE PROCEDURESon 02-10 OPERATIVE PROCEDURES [facility] OPERATIVE REPORT NAME ACCOUNT SEX AGE ADMIT DISCHARGE PT MED. RECORD# NUMBER DATE DATE TYPE FLEX WOOTEN [id number] F 59 02/08/20 02/08/20 2 E. [id number] ROOM: [facility] DATE OF : 1960 DICTATING PHYSICIAN: Pb Drummond DATE OF SURGERY: February 08, 2020 SURGEON: Pb Drummond MD FLAT SHEET MAKER: None. ANESTHESIOLOGIST: Daphney Velasquez MD ANESTHETIC: Local [...] Pb Drummond MD 02/08/20 13:43 JOB #: [id number] Transcribed By: yogesh 02/09/20 07:13 Electronically signed by: E-SIGN DR. PB DRUMMOND M.D. 02/11/20 09:08 Page 2 of 2 FLEX WOOTEN. Operative Report Normal [facility] CNOVon 05-09-2019 CNOV Office Visit (RHBATH ) FLEX WOOTEN ([id number]) 1960 F Date Time Provider Department 05/09/19 [...] for [address] Musa at [facility]. Takes oxycodone 2 times daily. Left [...] Diagnosis Date - DVT (deep venous thrombosis) ([facility]) 2014 post knee replacement - Fibromyalgia - Hemorrhage of gastrointestinal tract, unspecified - Hemorrhage of rectum and anus - Internal hemorrhoids without mention of complication - Other forms of migraine - Other unspecified back disorder - Pulmonary embolism ([facility]) 2014 PAST SURGICAL HISTORY Procedure Laterality Date - COLONOSCOP W/ OR W/O [facility] SPEC 2002 Colonoscopy - INTRATHECAL BLOCK [...] left knee -- meniscus repair; Dr. Weller, [facility] - REMOVAL OF OVARY(S) - REMOVE [...] AJ 1:160, CK 272 Negative aside DNA, HEALTHCARE FACILITY ADMINISTRATOR, SSA, SSB, rheumatoid factor, CCP, Acevedo Low [...] Jackie Rojas MD Referring Provider: JACKIE ROJAS [[id number]] Allergies As of Date: 05/09/2019 Noted Allergy [...] Status:Closed by JACKIE ROJAS MD on 05/09/19 [facility] PROGRESSon 05-09-2019 PROGRESS HNO ID: [id number] Author: Jackie Rojas Service: ? Author Type: [...] for [address] Musa at [facility]. Takes oxycodone 2 times daily. Left [...] Diagnosis Date - DVT (deep venous thrombosis) ([facility]) 2014 post knee replacement - Fibromyalgia - Hemorrhage of gastrointestinal tract, unspecified - Hemorrhage of rectum and anus - Internal hemorrhoids without mention of complication - Other forms of migraine - Other unspecified back disorder - Pulmonary embolism ([facility]) 2014 PAST SURGICAL HISTORY Procedure Laterality Date - COLONOSCOP W/ OR W/O [facility] SPEC 2002 Colonoscopy - INTRATHECAL BLOCK [...] AJ 1:160, CK 272 Negative aside DNA, HEALTHCARE FACILITY ADMINISTRATOR, SSA, SSB, rheumatoid factor, CCP, Acevedo Low [...] fail to improve. Jackie Rojas MD Normal [facility] AJ by IFA Screenon 04-12-20 19 AJ by IFA Screen SEE BELOW Normal [facility] Comment on above: Result Comment: AJ Positive AB NEGAT Normal range : negative at <1:80 serum dilution. AJ Titer 1:160 AB NEGAT AJ Pattern Homogeneous Performing Laboratory: [facility] [employer] [address] [place] [address] Performed By: #### R F1 #### [facility] [address] [place], [place] [address] CCP Antibody, IgGon 04-12-20 19 CCP Antibody, IgG <15 Normal <20 [facility] Comment on above: Result Comment: < 20 units: Negative 20-39 units: Weak Positive 40-59 units: Moderate Positive > 60 units: Strong Positive The following results were obtained with the [employer] QUANTA Lite CCP3 IgG VENESSA. Anti-CCP values obtained with different manufacturers' assay methods may not be used interchangeably. The magnitude of the reported IgG levels cannot be correlated to an endpoint titer. Performing Laboratory: [facility] [employer] [address] [place] [address] Performed By: #### R F1 #### [place] [id number] DS-DNA Abon 04-12-2019 DS-DNA Ab SEE BELOW Normal [facility] Comment on above: Result Comment: DNA Antibody w/ Conf. <12 <30 IU/mL Negative for ds DNA Antibodies Negative: <30 IU/mL Equivocal: 30-74 IU/mL Positive: >74 IU/mL Performing Laboratory: [facility] [employer] [address] [place] [address] Performed By: #### R F1 #### [place] [address] HEALTHCARE FACILITY ADMINISTRATOR Antibodyon 04-12-2019 HEALTHCARE FACILITY ADMINISTRATOR Antibody <0.2 Normal <1.0 [facility] Comment on above: Result Comment: Nega tive Negative: <1.0 AI Positive: >0.9 AI Performing Laboratory: [facility] [employer] [address] [place] [address] Performed By: #### R F1 #### [address] [address] Sjogren Antibodieson 019 Sjogren Antibodies SEE BELOW Normal [facility] Comment on above: Result Comment: SSA Antibody <0.2 <1.0 AI Negative Negative: <1.0 AI Positive: >0.9 AI SSB Antibody <0.2 <1.0 AI Negative Negative: <1.0 AI Positive: >0.9 AI Performing Laboratory: [facility] [employer] [address] [place] [address] Performed By: #### R F1 #### [facility] [address] [place], [place] [address] Acevedo Abs IgGon 04-12-2019 Acevedo Abs IgG SEE BELOW Normal [facility] Comment on above: Result Comment: Sm A ntibody <0.2 <1.0 AI Negative Negative: <1.0 AI Positive: >0.9 AI Performing Laboratory: [facility] [address] [place] [address] Performed By: #### R F1 #### [facility] [address] [place], [place] [address] Total 25-OH Vitamin Don 03-29 Total 25-OH Vitamin D 31.3 ng/mL Normal 30.0-100.0 [facility] Comment on above: Performed By: #### R F1 #### [address] [address] CNOVon 04-09-2019 CNOV Office Visit (RHBATH ) FLEX WOOTEN ([id number]) 1960 F Date Time Provider Department 04/09/19 [...] for [address] Musa at [facility]. Takes oxycodone 2 times daily. Left [...] Diagnosis Date - DVT (deep venous thrombosis) ([facility]) 2013 post knee replacement - Fibromyalgia - Hemorrhage of gastrointestinal tract, unspecified - Hemorrhage of rectum and anus - Internal hemorrhoids without mention of complication - Other forms of migraine - Other unspecified back disorder - Pulmonary embolism ([facility]) 2013 PAST SURGICAL HISTORY Procedure Laterality Date - COLONOSCOP W/ OR W/O [facility] SPEC 2002 Colonoscopy - INTRATHECAL BLOCK [...] file Gets together: Not on file Attends sabianist service: Not on file Active member of [...] SCREEN - DNA ANTIBODY DS BLD - HEALTHCARE FACILITY ADMINISTRATOR ANTIBODY BLOOD - ACEVEDO IGG AB - [...] Jackie Rojas MD Referring Provider: RICA PADGETT [[id number]] Allergies As of Date: 04/09/2019 Noted Allergy [...] Order(s):AJ BY IFA SCREEN [SQANAIFS] Order #: [id number] FUTURE DNA ANTIBODY DS BLD [SQDNAAB] Order #: [id number] FUTURE HEALTHCARE FACILITY ADMINISTRATOR ANTIBODY BLOOD [SQARNP] Order #: [id number] FUTURE ACEVEDO IGG AB [SQSMAB] Order #: [id number] FUTURE SJOGREN ABS SSA/SSB [SQXSSAB] Order #: [id number] FUTURE RHEUMATOID FACTOR BL [SQRF] Order #: [id number] FUTURE CCP ANTIBODY IGG [SQCCP] Order #: [id number] FUTURE CK CREATINE KINASE [SQCK] Order #: [id number] FUTURE VITAMIN D 25 HYDROXY [SQVITD] Order #: [id number] FUTURE FERRITIN BLD [SQFERR] Order #: [id number] FUTURE IRON + TIBC [SQIRON] Order #: [id number] FUTURE UA WITH CULTURE IF INDICATED [SQUACII] Order #: [id number] FUTURE CREATININE RANDOM UR [SQUCRR] Order #: [id number] FUTURE PROTEIN RANDOM UR [SQUTPR] Order #: [id number] FUTURE CBC + DIFF [SQCBCDIF] Order #: [id number] FUTURE COMP METABOLIC PANEL [SQCMP] Order #: [id number] FUTURE XR HAND GENERAL 3V PA/LAT/OBL LT [[id number]] Order #: [id number] FUTURE XR HAND GENERAL 3V PA/LAT/OBL RT [2386888] Order #: [id number] FUTURE XR FOOT GENERAL 3V AP/LAT/OBL LT [5485742] Order #: [id number] FUTURE XR FOOT GENERAL 3V AP/LAT/OBL RT [0477940] Order #: [id number] FUTURE XR SACROILIAC JOINTS 2V AP PELVIS/FERGUESON [[id number]] Order #: [id number] FUTURE XR LUMBAR LIMITED 2V AP/LAT [5750508] Order #: [id number] FUTURE Prescriptions as of 04/09/2019 Sig: ATENOLOL [...] by JACKIE ROJAS MD on 04/09/19 Normal [facility] CPKon 04-09-2019 CK [Catalytic activity/Vol] 272 U/L High 26-192 [facility] Comment on above: Performed By: #### C K #### [address] [address] Comprehensive Panelon 2018 ALP [Catalytic activity/Vol] 87 U/L Normal 45-117 [facility] Comment on above: Performed By: #### P 14 #### [address] [address] Bilirubin [Mass/Vol] 0.2 mg/dL Normal 0.2-1.0 [facility] Comment on above: Performed By: #### P 14 #### [address] [address] Protein [Mass/Vol] 7.0 g/dL Normal 6.4-8.2 [facility] Comment on above: Performed By: #### P 14 #### [facility] [address] [place], [place] [address] ALT [Catalytic activity/Vol] 43 U/L Normal 12-78 [facility] Comment on above: Performed By: #### P 14 #### [facility] [address] [place], [place] [address] Creatinine [Mass/Vol] 0.74 mg/dL Normal 0.51-0.95 [facility] Comment on above: Performed By: #### P 14 #### [facility] [address] [place], [place] [address] AST [Catalytic activity/Vol] 22 U/L Normal 15-37 [facility] Comment on above: Performed By: #### P 14 #### [facility] [address] [place], [place] [address] Albumin [Mass/Vol] 3.6 g/dL Normal 3.4-5.0 [facility] Comment on above: Performed By: #### P 14 #### [facility] [address] [place], [place] [address] Anion gap [Moles/Vol] 9 mmol/L Normal 8-16 [facility] Comment on above: Performed By: #### P 14 #### [facility] [address] [place], [place] [address] CO2 [Moles/Vol] 31 mmol/L Normal 21-32 [facility] Comment on above: Performed By: #### P 14 #### [facility] [address] [place], [place] [address] Urea nitrogen [Mass/Vol] 16 mg/dL Normal 7-18 [facility] Comment on above: Performed By: #### P 14 #### [facility] [address] [place], [place] [address] Calcium [Mass/Vol] 8.9 mg/dL Normal 8.5-10.1 [facility] Comment on above: Performed By: #### P 14 #### [facility] [address] [place], [place] [address] Glucose [Mass/Vol] 124 mg/dL High 70-99 [facility] Comment on above: Performed By: #### P 14 #### [facility] [address] [place], [place] [address] Chloride [Moles/Vol] 100 mmol/L Normal 98-107 [facility] Comment on above: Performed By: #### P 14 #### [facility] [address] [place], [place] [address] Potassium [Moles/Vol] 4.4 mmol/L Normal 3.5-5.1 [facility] Comment on above: Performed By: #### P 14 #### [facility] [address] [place] [address] Sodium [Moles/Vol] 136 mmol/L Normal 136-145 [facility] Comment on above: Performed By: #### P 14 #### [facility] [address] [place] [address] Creatinine,Urineon 9 Creatinine,Urine 71.9 mg/dL Normal [facility] Comment on above: Performed By: #### C REAU #### [facility] [address] [place] [address] Ferritinon 04-09-2019 Ferritin [Mass/Vol] 11.80 ng/mL Normal 8.00-252.00 [facility] Comment on above: Performed By: #### F ERR #### [place] [address] Hemogram/Diffon 04-09-2019 Abs Immature Grans 0.03 thou/cmm Normal 0.00-0.05 [facility] Comment on above: Performed By: #### C BCD1 #### [facility] [address] [place] [address] Abs Neut (ANC) 4.15 thou/cmm Normal 1.56-6.13 [facility] Comment on above: Performed By: #### C BCD1 #### [facility] [address] [place] [address] Abs. Baso 0.06 thou/cmm Normal 0.01-0.08 [facility] Comment on above: Performed By: #### C BCD1 #### [facility] [address] [place], [place] [address] 0[address]43 thou/cmm Normal 0.27-0.70 [facility] Comment on above: Performed By: #### C BCD1 #### [facility] [address] [place], [place] [address] Basophils/100 WBC (Bld) 0.9 % Normal [facility] Comment on above: Performed By: #### C BCD1 #### [facility] [address] [place], [place] [address] Eosinophils (Bld) [#/Vol] 0.18 thou/cmm Normal 0.00-0.31 [facility] Comment on above: Performed By: #### C BCD1 #### [facility] [address] [place] [address] Eosinophils/100 WBC (Bld) 2.6 % Normal [facility] Comment on above: Performed By: #### C BCD1 #### [facility] [address] [place] [address] Erythrocyte distribution width (RBC) [Ratio] 13.4 % Normal 11.7-14.4 [facility] Comment on above: Performed By: #### C BCD1 #### [facility] [address] [place], [place] [address] Hematocrit (Bld) [Volume fraction] 39.8 % Normal 34.1-44.9 [facility] Comment on above: Performed By: #### C BCD1 #### [facility] [address] [place], [place] [address] Hemoglobin (Bld) [Mass/Vol] 12.5 g/dL Normal 11.2-15.7 [facility] Comment on above: Performed By: #### C BCD1 #### [facility] [address] [place] [address] Immature Grans 0.40 % Normal [facility] Comment on above: Performed By: #### C BCD1 #### [facility] [address] [place] [address] Lymphocytes (Bld) [#/Vol] 2.09 thou/cmm Normal 1.18-3.74 [facility] Comment on above: Performed By: #### C BCD1 #### [facility] [address] [place], [place] [address] Lymphocytes/100 WBC (Bld) 30.1 % Normal [facility] Comment on above: Performed By: #### C BCD1 #### [facility] [address] [place], [place] [address] MCH (RBC) [Entitic mass] 26.7 pg Normal 25.6-32.2 [facility] Comment on above: Performed By: #### C BCD1 #### [facility] [address] [place], [place] [address] MCHC (RBC) [Mass/Vol] 31.4 % Low 31.6-34.8 [facility] Comment on above: Performed By: #### C BCD1 #### [facility] [address] [place] [address] MCV (RBC) [Entitic vol] 85.0 fL Normal 79.4-94.8 [facility] Comment on above: Performed By: #### C BCD1 #### [facility] [address] [place], [place] [address] Monocytes/100 WBC (Bld) 6.2 % Normal [facility] Comment on above: Performed By: #### C BCD1 #### [facility] [address] [place], [place] [address] Platelet mean volume (Bld) [Entitic vol] 9.8 fL Normal 9.4-12.3 [facility] Comment on above: Performed By: #### C BCD1 #### [facility] [address] [place], [place] [address] Platelets (Bld) [#/Vol] 204 thou/cmm Normal 182-369 [facility] Comment on above: Performed By: #### C BCD1 #### [address] [address] RBC (Bld) [#/Vol] 4.68 mil/cmm Normal 3.93-5.22 [facility] Comment on above: Performed By: #### C BCD1 #### [facility] [address] [place], [place] [address] RDW SD 41.3 fl Normal 36.4-46.3 [facility] Comment on above: Performed By: #### C BCD1 #### [facility] [address] [place], [place] [address] Seg Neutrophil 59.8 % Normal [facility] Comment on above: Performed By: #### C MANNYD1 #### [facility] [address] [place] [address] WBC (Bld) [#/Vol] 6.94 thou/cmm Normal 3.98-10.04 [facility] Comment on above: Performed By: #### C BCShayla #### [facility] [address] [place] [address] Iron % Saturationon 04-09-20 19 Iron % Saturation 17 % Low 20-55 [facility] Comment on above: Performed By: #### I ANAYELI #### [facility] [address] [place] [address] Iron Binding Cap. 369 ug/dL Normal 250-450 [facility] Comment on above: Performed By: #### I PHILOMENAS #### [place] [address] Iron Serum 61 ug/dL Normal 50-170 [facility] Comment on above: Performed By: #### I ANAYELI #### [place] [address] MDRD GFRon 04-09-2019 GFR/1.73 sq M predicted among non-blacks MDRD (S/P/Bld) [Vol rate/Area] mL/min/{1.73_m2} Normal >60mL/min/1 .73m2 [facility] Comment on above: Result Comment: If t he patient is , multiply the result by 1.210. Performed By: #### G FR #### [facility] [address] [place] [address] PROGRESSon 04-09-2019 PROGRESS HNO ID: [id number] Author: Jackie Rojas Service: ? Author Type: [...] for [address] Musa at [facility]. Takes oxycodone 2 times daily. Left [...] Diagnosis Date - DVT (deep venous thrombosis) ([facility]) 2013 post knee replacement - Fibromyalgia - Hemorrhage of gastrointestinal tract, unspecified - Hemorrhage of rectum and anus - Internal hemorrhoids without mention of complication - Other forms of migraine - Other unspecified back disorder - Pulmonary embolism ([facility]) 2014 PAST SURGICAL HISTORY Procedure Laterality Date - COLONOSCOP W/ OR W/O [facility] 2002 Colonoscopy - INTRATHECAL BLOCK [...] file Gets together: Not on file Attends sabianist service: Not on file Active member of [...] SCREEN - DNA ANTIBODY DS BLD - HEALTHCARE FACILITY ADMINISTRATOR ANTIBODY BLOOD - ACEVEDO IGG AB - [...] discuss lab results. Jackie Rojas MD Normal [facility] Rheumatoid Factoron 04-09-20 19 Rheumatoid Factor < 10.0 Normal 0.0-15.0 [facility] Comment on above: Performed By: #### R F1 #### [place] [address] Urinalysis, reflexon 019 Reflex Comment see below Normal [facility] Comment on above: Result Comment: Refl ex to culture is not indicated based on established laboratory criteria. Performed By: #### U RIN #### [place] [address] Bacteria LM.HPF (Urine sed) [#/Area] NONE Normal None [facility] Comment on above: Performed By: #### U RIN #### [address] [place] [address] Ep Cells Urine 0.8 /hpf Normal 0.0-5.0 [facility] Comment on above: Performed By: #### U RIN #### [place] [address] Hyaline Cast 0.7 /lpf Normal 0.0-1.0 [facility] Comment on above: Performed By: #### U RIN #### [place] [address] RBC LM.HPF (Urine sed) [#/Area] 0.6 /[HPF] Normal 0.0-5.0 [facility] Comment on above: Performed By: #### U RIN #### [place] [address] WBC, reflex 0.90 /hpf Normal 0.00-5.00 [facility] Comment on above: Performed By: #### U RIN #### [place] [address] Appearance (U) CLEAR Normal [facility] Comment on above: Performed By: #### U RIN #### [place] [address] Bilirubin (U) [Mass/Vol] Negative Normal Negative [facility] Comment on above: Performed By: #### U RIN #### [place] [address] Color (U) YELLOW Normal [facility] Comment on above: Performed By: #### U RIN #### [place] [address] Glucose Ql (U) Negative Normal Negative [facility] Comment on above: Performed By: #### U RIN #### [place] [address] Hemoglobin,Urine Negative Normal Negative [facility] Comment on above: Performed By: #### U RIN #### [place] [address] Ketone Urine Negative Normal Negative [facility] Comment on above: Performed By: #### U RIN #### [facility] [address] [place] [address] Leukocyte esterase Test strip Ql (U) TRACE Abnormal Negative [facility] Comment on above: Performed By: #### U RIN #### [facility] [address] [place] [address] Nitrite reflex Negative Normal Negative [facility] Comment on above: Performed By: #### U RIN #### [facility] [address] [place] [address] pH (U) 5.0 [pH] Normal 5.0-8.0 [facility] Comment on above: Performed By: #### U RIN #### [facility] [address] [place] [address] Protein (U) [Mass/Vol] Negative Normal Negative [facility] Comment on above: Performed By: #### U RIN #### [facility] [address] [place] [address] Specific [place], Ur 1.017 Normal 1.005-1.030 [facility] Comment on above: Performed By: #### U RIN #### [facility] [address] [place] [address] Urobilinogen,Ur 0.2 EU/dL Normal 0.2-1.0 [facility] Comment on above: Performed By: #### U RIN #### [facility] [address] [place] [address] Urine Proteinon 04-09-2019 Protein Ql (U) < 5.0 Normal 0.0-11.9 [facility] Comment on above: Performed By: #### U P #### [facility] [address] [place] [address] XR FOOT 3V AP/LAT/OBL LTon 0 04-09-2019 [...] degenerative arthritis at the first MTP joints. Health Associate: JUANITA Transcribe Date/Time: Apr 12 2019 2:06P Dictated by : YANETH PATEL MD This examination was interpreted and the report reviewed and electronically signed by: YANETH PATEL MD on Apr 12 2019 2:08PM EST Normal [facility] XR FOOT 3V AP/LAT/OBL RTon 0 [...] degenerative arthritis at the first MTP joints. Health Associate: [place] Transcribe Date/Time: Apr 12 2019 2:06P Dictated by : YANETH PATEL MD This examination was interpreted and the report reviewed and electronically signed by: YANETH PATEL MD on Apr 12 2019 2:08PM EST Normal [facility] XR HAND 3V PA/LAT/OBL LTon 0 [...] no abnormal calcifications. IMPRESSION: Within normal limits. Health Associate: JUANITA Transcribe Date/Time: Apr 12 2019 2:04P Dictated by : YANETH PATEL MD This examination was interpreted and the report reviewed and electronically signed by: YANETH PATEL MD on Apr 12 2019 2:06PM EST Normal [facility] XR HAND 3V PA/LAT/OBL RTon 0 [...] no abnormal calcifications. IMPRESSION: Within normal limits. [facility] Transcribe Date/Time: Apr 12 2019 2:04P Dictated by : YANETH PATEL MD This examination was interpreted and the report reviewed and electronically signed by: YANETH PATEL MD on Apr 12 2019 2:06PM EST Normal [facility] XR LUMBAR 2V AP/LATon 2018 XR [...] IMPRESSION: Scoliosis, degenerative spondylosis, and postoperative changes. Health Associate: JUANITA Transcribe Date/Time: Apr 12 2019 2:09P Dictated by : YANETH PATEL MD This examination was interpreted and the report reviewed and electronically signed by: YANETH PATEL MD on Apr 12 2019 2:11PM EST Normal [facility] XR SI JTS 2V AP PELV/FERGUSO [...] degenerative changes at the right sacroiliac joint. Health Associate[facility] Transcribe Date/Time: Apr 12 2019 2:08P Dictated by : YANETH PATEL MD This examination was interpreted and the report reviewed and electronically signed by: YANETH PATEL MD on Apr 12 2019 2:09PM EST Normal [facility] Office Visit: Annualon 07-25 Dietary management education, guidance, and counseling (procedure) yes Invalid Interpretation Code [facility] Documentation of current medications (procedure) Done Invalid Interpretation Code [facility] Tobacco smoking status NHIS Never Invalid Interpretation Code [facility] Tobacco use CPHS Never smoker Invalid Interpretation Code [facility] Lab Report: Basic Metabolic Profile (BMP)on 12-09-2016 Anion gap 10 mmol/L Invalid Interpretation Code 5-15 [facility] BUN/Creatinine Ratio 18.5 RATIO Invalid Interpretation Code 10-20 [facility] Calcium 8.9 mg/dL Invalid Interpretation Code 8.5-10.1 [facility] Chloride 98 mmol/L Invalid Interpretation Code 98-107 [facility] CO2 32.0 mmol/L Invalid Interpretation Code 21.0-32.0 [facility] Creatinine 0.81 mg/dL Invalid Interpretation Code 0.55-1.02 [facility] eGFR (non-black) 77 mL/min/{1.73_m2} Invalid Interpretation Code >60 [facility] eGFR (non-black) 93 mL/min/{1.73_m2} Invalid Interpretation Code >60 [facility] Glucose mass conc 121 mg/dL High 70-110 [facility] Potassium molar conc 4.3 mmol/L Invalid Interpretation Code 3.5-5.1 [facility] Sodium 140 mmol/L Invalid Interpretation Code 136-145 [facility] Urea nitrogen 15 mg/dL Invalid Interpretation Code 7-18 [facility] Lab Report: Lipaseon 017 LIPASE 157 U/L Invalid Interpretation Code [address] [facility] Lab Report: Liver Profileon 12-09-2016 Alanine aminotransferase (ALT) 58 U/L Invalid Interpretation Code 12-78 [facility] Albumin 3.7 g/dL Invalid Interpretation Code 3.4-5.0 [facility] Alkaline phosphatase (ALP) 87 U/L Invalid Interpretation Code 45-117 [facility] Aspartate aminotransferase (AST) 37 U/L Invalid Interpretation Code 15-37 [facility] Bilirubin (direct) 0.07 mg/dL Invalid Interpretation Code 0.00-0.30 [facility] Bilirubin (total) 0.30 mg/dL Invalid Interpretation Code 0.20-1.00 [facility] Globulin 3.5 g/dL Invalid Interpretation Code 2.3-3.5 [facility] Protein 7.2 g/dL Invalid Interpretation Code 6.4-8.2 [facility] Office Visit: RUQ pain, dila mary anne CBD, no GS on U/Son 12-09-2016 Fall risk assessment No Invalid Interpretation Code [facility] Office Visit: RUQ pain, dila mary anne CBD, no GS on U/Son 08-29-2015 Breast Mammogram screening Normal Bilateral Invalid Interpretation Code [facility] General categories [Interpretation] of Cervical or vaginal smear or scraping by Cyto stain Normal Invalid Interpretation Code [facility] No Panel Informationon 03-04 [facility] Vital Signs Date Time Vital Sign Value Performing Clinician Facility 09-06-2023 13:50-0500 Body temperature 97 [degF] Renita Thomae DO Work Phone: [facility] 09-06-2023 13:50-0500 Diastolic blood pressure 62 mm[Hg] Renita Thomae DO Work Phone: [facility] 09-06-2023 13:50-0500 Heart rate 59 /min Renita Thomae DO Work Phone: [facility] 09-06-2023 13:50-0500 Respiratory rate 16 /min Renita Thomae DO Work Phone: [facility] 09-06-2023 13:50-0500 SaO2% (BldA) [Mass fraction] 94 % Renita Thomae DO Work Phone: [facility] 09-06-2023 13:50-0500 Systolic blood pressure 111 mm[Hg] Renita Thomae DO Work Phone: [facility] 02-24-2023 15:16-0400 Body temperature 97.7 [degF] DR PJ MAHONEY MD [facility] 02-24-2023 15:16-0400 Diastolic Blood Pressure Non-Invasive [address] PJ MAHONEY MD [facility] 02-24-2023 15:16-0400 Heart rate 66 /min DR PJ MAHONEY MD [facility] 02-24-2023 15:16-0400 Reason For Taking VItal Signs DR PJ MAHONEY MD [facility] 02-24-2023 15:16-0400 Respiratory rate 16 /min DR PJ MAHONEY MD [facility] 02-24-2023 15:16-0400 Systolic Blood Pressure Non-Invasive [address] PJ MAHONEY MD [facility] 02-24-2023 11:13-0400 Body temperature 98.42 [degF] DR PJ MAHONEY MD [facility] 02-24-2023 11:13-0400 Diastolic Blood Pressure Non-Invasive [address] PJ MAHONEY MD [facility] 02-24-2023 11:13-0400 Heart rate 71 /min DR PJ MAHONEY MD [facility] 02-24-2023 11:13-0400 Reason For Taking VItal Signs DR PJ MAHONEY MD [facility] 02-24-2023 11:13-0400 Respiratory rate 16 /min DR PJ MAHONEY MD [facility] 02-24-2023 11:13-0400 Systolic Blood Pressure Non-Invasive [address] PJ MAHONEY MD [facility] 02-24-2023 09:07-0400 Heart rate 84 /min DR PJ MAHONEY MD [facility] 02-24-2023 08:58-0400 Diastolic Blood Pressure Non-Invasive [address] PJ MAHONEY MD [facility] 02-24-2023 08:58-0400 Systolic Blood Pressure Non-Invasive [address] PJ MAHONEY MD [facility] 02-24-2023 08:12-0400 Body temperature 97.88 [degF] DR PJ MAHONEY MD [facility] 02-24-2023 08:12-0400 Heart rate 74 /min DR PJ MAHONEY MD [facility] 02-24-2023 08:12-0400 Reason For Taking VItal Signs DR PJ MAHONEY MD [facility] 02-24-2023 08:12-0400 Respiratory rate 18 /min DR PJ MAHONEY MD [facility] 02-23-2023 22:43-0400 Heart rate 60 /min DR PJ MAHONEY MD [facility] 02-23-2023 20:04-0400 Heart rate 64 /min DR PJ MAHONEY MD [facility] 02-23-2023 14:32-0400 Heart rate 82 /min DR PJ MAHONEY MD [facility] 02-23-2023 11:40-0400 Heart rate 70 /min DR PJ MAHONEY MD [facility] 02-22-2023 14:40-0400 Body height 162.[address] PJ MAHONEY MD [facility] 02-22-2023 14:40-0400 Body weight [address] PJ MAHONEY MD [facility] 02-22-2023 14:40-0400 Body weight 41.61 kg/m2 DR PJ MAHONEY MD [facility] 02-22-2023 13:15-0400 Body temperature 96.26 [degF] DR PJ MAHONEY MD [facility] 02-22-2023 12:04-0400 Body temperature 97.7 [degF] DR PJ MAHONEY MD [facility] 02-22-2023 12:00-0400 Respiratory Rate - Anes 3 br/min DR PJ MAHONEY MD [facility] 02-22-2023 11:55-0400 Respiratory Rate - Anes 26 br/min DR PJ MAHONEY MD [facility] 02-22-2023 11:50-0400 Body temperature 96.84 [degF] DR PJ MAHONEY MD [facility] 02-22-2023 11:50-0400 Respiratory Rate - Anes 23 br/min DR PJ MAHONEY MD [facility] 02-22-2023 11:45-0400 Body temperature 96.85 [degF] DR PJ MAHONEY MD [facility] 02-22-2023 11:40-0400 Body temperature 96.89 [degF] DR PJ MAHONEY MD [facility] 02-22-2023 09:31-0400 Body height 162.[address] PJ MAHONEY MD [facility] 02-22-2023 09:31-0400 Body temperature 98.42 [degF] DR PJ MAHONEY MD [facility] 02-22-2023 09:31-0400 Body weight [address] PJ MAHONEY MD [facility] 02-03-2023 13:58-0400 Blood Pressure Cuff Size DR PJ MAHONEY MD [facility] 02-03-2023 13:58-[address] PJ MAHONEY MD [facility] 02-03-2023 13:58-[address] PJ MAHONEY MD [facility] 02-03-2023 13:58-0400 Body height 162.[address] PJ MAHONEY MD [facility] 02-03-2023 13:58-0400 Body weight [address] PJ MAHONEY MD [facility] 02-03-2023 13:58-0400 Body weight 41.61 kg/m2 DR PJ MAHONEY MD [facility] 02-03-2023 13:58-0400 Diastolic Blood Pressure Non-Invasive [address] PJ MAHONEY MD [facility] 02-03-2023 13:58-0400 Heart rate 73 /min DR PJ MAHONEY MD [facility] 02-03-2023 13:58-0400 Systolic Blood Pressure Non-Invasive [address] PJ MAHONEY MD [facility] 09-17-2022 18:10-0500 Body temperature 98 [degF] Dr. Rica Padgett Work Phone: [facility] 09-17-2022 18:10-0500 Diastolic blood pressure 65 mm[Hg] Dr. Rica Padgett Work Phone: [facility] 09-17-2022 18:10-0500 Heart rate 75 /min Dr. Rica Padgett Work Phone: [facility] 09-17-2022 18:10-0500 Respiratory rate 16 /min Dr. Rica Padgett Work Phone: [facility] 09-17-2022 18:10-0500 SaO2% (BldA) [Mass fraction] 901 % Dr. Rica Padgett Work Phone: [facility] 09-17-2022 18:10-0500 Systolic blood pressure 119 mm[Hg] Dr. Rica Padgett Work Phone: [facility] 09-17-2022 11:45-0500 Body height 162.[address] Rica Padgett Work Phone: [facility] 09-17-2022 11:45-0500 Body weight 121.[address] Rica Padgett Work Phone: [facility] 09-16-2022 19:21-0500 Inhaled oxygen flow rate 2 L/min Dr. Rica Padgett Work Phone: [facility] 09-16-2022 19:15-0500 Body mass index (BMI) [Ratio] 46.1 kg/m2 Dr. Rica Padgett Work Phone: [facility] 09-13-2022 10:21-0500 Body mass index (BMI) [Ratio] 42.7 kg/m2 Dr. Rica Padgett Work Phone: [facility] 09-13-2022 10:21-0500 Body temperature 95.4 [degF] Dr. Rica Padgett Work Phone: [facility] 09-13-2022 10:21-0500 Body weight 116.[address] Rica Padgett Work [facility] [facility] 09-13-2022 10:21-0500 Diastolic blood pressure 80 mm[Hg] Dr. Rica Padgett Work Phone: [facility] 09-13-2022 10:21-0500 Heart rate 84 /min Dr. Rica Padgett Work Phone: [facility] 09-13-2022 10:21-0500 Respiratory rate 20 /min Dr. Rica Padgett Work Phone: [facility] 09-13-2022 10:21-0500 SaO2% (BldA) [Mass fraction] 90 % Dr. Rica Padgett Work Phone: [facility] 09-13-2022 10:21-0500 Systolic blood pressure 137 mm[Hg] Dr. Rica Padgett Work Phone: [facility] 05-19-2022 14:14-0400 Body temperature 95.3 [degF] Dr. Rica Padgett Work Phone: [facility] Work Phone: 05-19-2022 14:14-0400 Diastolic blood pressure 90 mm[Hg] Dr. Rica Padgett Work Phone: [facility] Work Phone: 05-19-2022 14:14-0400 Heart rate 81 /min Dr. Rica Padgett Work Phone: [facility] Work Phone: 05-19-2022 14:14-0400 Respiratory rate 20 /min Dr. Rica Padgett Work Phone: [facility] Work Phone: 05-19-2022 14:14-0400 SaO2% (BldA) [Mass fraction] 91 % Dr. Rica Padgett Work Phone: [facility] Work Phone: 05-19-2022 14:14-0400 Systolic blood pressure 156 mm[Hg] Dr. Rica Padgett Work Phone: [facility] Work Phone: 03-29-2022 09:18-0400 Body mass index (BMI) [Ratio] 42.9 kg/m2 Dr. Rica Padgett Work Phone: [facility] Work Phone: 03-29-2022 09:18-0400 Body temperature 96.3 [degF] Dr. Rica Padgett Work Phone: [facility] Work Phone: 03-29-2022 09:18-0400 Body weight 117.[address] Rica Padgett Work Phone: [facility] Work Phone: 03-29-2022 09:18-0400 Diastolic blood pressure 80 mm[Hg] Dr. Rica Padgett Work Phone: [facility] Work Phone: 03-29-2022 09:18-0400 Heart rate 80 /min Dr. Rica Padgett Work Phone: [facility] Work Phone: 03-29-2022 09:18-0400 Respiratory rate 20 /min Dr. Rica Padgett Work Phone: [facility] Work Phone: 03-29-2022 09:18-0400 SaO2% (BldA) [Mass fraction] 95 % Dr. Rica Padgett Work Phone: [facility] Work Phone: 03-29-2022 09:18-0400 Systolic blood pressure 162 mm[Hg] Dr. Rica Padgett Work Phone: [facility] Work Phone: 01-31-2022 03:58-0400 Diastolic blood pressure 82 mm[Hg] Dr. Rica Padgett Work Phone: [facility] Work Phone: 01-31-2022 03:58-0400 Heart rate 53 /min Dr. Rica Padgett Work Phone: [facility] Work Phone: 01-31-2022 03:58-0400 Respiratory rate 16 /min Dr. Riac Padgett Work Phone: [facility] Work Phone: 01-31-2022 03:58-0400 SaO2% (BldA) [Mass fraction] 98 % Dr. Rica Padgett Work Phone: [facility] Work Phone: 01-31-2022 03:58-0400 Systolic blood pressure 114 mm[Hg] Dr. Rica Padgett Work Phone: [facility] Work Phone: 01-30-2022 23:11-0400 Body height 162.[address] Rica Padgett Work Phone: [facility] Work Phone: 01-30-2022 23:11-0400 Body mass index (BMI) [Ratio] 42 kg/m2 Dr. Rica Padgett Work Phone: [facility] Work Phone: 01-30-2022 23:11-0400 Body temperature 97.9 [degF] Dr. Rica Padgett Work Phone: [facility] Work Phone: 01-30-2022 23:11-0400 Body weight 111.[address] Rica Padgtet Work Phone: [facility] Work Phone: 01-25-2022 15:13-0400 Diastolic blood pressure 89 mm[Hg] Dr. Rica Padgett Work Phone: [facility] Work Phone: 01-25-2022 15:13-0400 Heart rate 78 /min Dr. Rica Padgett Work Phone: [facility] Work Phone: 01-25-2022 15:13-0400 Respiratory rate 18 /min Dr. Rica Padgett Work Phone: [facility] Work Phone: 01-25-2022 15:13-0400 SaO2% (BldA) [Mass fraction] 97 % Dr. Rica Padgett Work Phone: [facility] Work Phone: 01-25-2022 15:13-0400 Systolic blood pressure 143 mm[Hg] Dr. Rica Padgett Work Phone: [facility] Work Phone: 01-25-2022 12:56-0400 Body height 162.[address] Rica Padgett Work Phone: [facility] Work Phone: 01-25-2022 12:56-0400 Body mass index (BMI) [Ratio] 42.9 kg/m2 Dr. Rica Padgett Work Phone: [facility] Work Phone: 01-25-2022 12:56-0400 Body temperature 98.2 [degF] Dr. Rica Padgett Work Phone: [facility] Work Phone: 01-25-2022 12:56-0400 Body weight 113.[address] Rica Padgett Work Phone: [facility] Work Phone: 09-25-2021 14:30-0500 Body temperature 98.5 [degF] Dr. Rica Padgett Work Phone: [facility] Work Phone: 09-25-2021 14:30-0500 Diastolic blood pressure 78 mm[Hg] Dr. Rica Padgett Work Phone: [facility] Work Phone: 09-25-2021 14:30-0500 Heart rate 68 /min Dr. Rica Padgett Work Phone: [facility] Work Phone: 09-25-2021 14:30-0500 Respiratory rate 16 /min Dr. Rica Padgett Work Phone: [facility] Work Phone: 09-25-2021 14:30-0500 SaO2% (BldA) [Mass fraction] 93 % Dr. Rica Padgett Work Phone: [facility] Work Phone: 09-25-2021 14:30-0500 Systolic blood pressure 144 mm[Hg] Dr. Rica Padgett Work Phone: [facility] Work Phone: 09-25-2021 09:44-0500 Body height 162.[address] Rica Padgett Work Phone: [facility] Work Phone: 09-25-2021 09:44-0500 Body mass index (BMI) [Ratio] 42.9 kg/m2 Dr. Rica Padgett Work Phone: [facility] Work Phone: 09-25-2021 09:44-0500 Body weight 113.[address] Rica Padgett Work Phone: [facility] Work Phone: 05-22-2021 01:30-0400 Diastolic blood pressure 66 mm[Hg] Rica Padgett Other Phone: [facility] 05-22-2021 01:30-0400 Heart rate 72 /min Rica Padgett Other Phone: [facility] 05-22-2021 01:30-0400 Respiratory rate 16 /min Rica Padgett Other Phone: [facility] 05-22-2021 01:30-0400 SaO2% (BldA) [Mass fraction] 96 % Rica Malys Other Phone: [facility] 05-22-2021 01:30-0400 Systolic blood pressure 138 mm[Hg] Rica Malys Other Phone: [facility] 05-21-2021 22:35-0400 Body height 162.5 cm Rica Malys Other Phone: [facility] 05-21-2021 22:35-0400 Body temperature 97.16 [degF] Rica Malys Other Phone: [facility] 05-21-2021 22:35-0400 Body weight 109.3 kg Rica Malys Other Phone: [facility] 02-13-2021 05:12-0400 Diastolic blood pressure 73 mm[Hg] Rica Malys Other Phone: [facility] 02-13-2021 05:12-0400 Heart rate 55 /min Rica Malys Other Phone: [facility] 02-13-2021 05:12-0400 Respiratory rate 18 /min Rica Malys Other Phone: [facility] 02-13-2021 05:12-0400 SaO2% (BldA) [Mass fraction] 92 % Rica Malys Other Phone: [facility] 02-13-2021 05:12-0400 Systolic blood pressure 143 mm[Hg] Rica Malys Other Phone: [facility] 02-13-2021 02:01-0400 Body temperature 97.16 [degF] Rica Malys Other Phone: [facility] 07-25-2017 14:03-0500 BMI (Body Mass Index) 39.79 kg/m2 Azra Gee NP [facility] 07-25-2017 14:03-0500 BP Diastolic 78 mm[Hg] Azra Gee NP [facility] 07-25-2017 14:03-0500 BP Systolic 128 mm[Hg] Azra Gee DIRECTOR OF LOGISTICS [facility] 07-25-2017 14:03-0500 Height 161.93 cm Azra Marlen DIRECTOR OF LOGISTICS [facility] 07-25-2017 14:03-0500 Weight 104.33 kg Azra Gee DIRECTOR OF LOGISTICS [facility] 12-09-2016 11:09-0400 Body Temperature 98 [degF] Azra Gee DIRECTOR OF LOGISTICS [facility] 12-09-2016 11:09-0400 BSA (Body Surface Area) 2.11 m2 Azra Gee DIRECTOR OF LOGISTICS [facility] 12-09-2016 11:09-0400 Pulse (Heart Rate) 86 /min Azra Gee DIRECTOR OF LOGISTICS [facility] 12-09-2016 11:09-0400 Respiratory Rate 18 /min Azra Gee DIRECTOR OF LOGISTICS [facility] Encounters Encounter Date Encounter Type Care Provider Facility Start: 03-11-2025 End: 03-11-2025 ambulatory Rica Malys Facility:[facility] Start: 02-18-2025 ambulatory Marissa Joseph Facility :[facility] Start: 02-09-2025 End: 02-09-[facility] Start: 02-04-2025 End: 02-04-2025 [facility] Start: 01-07-2025 End: 01-07-2025 [facility] Start: 01-03-2025 End: 01-03-20[facility] Start: 11-29-2024 ambulatory Rica Malys [facility] Start: 11-29-2024 End: 11-29-2024 [facility] Start: 11-20-2024 End: 11-20-2024 [facility] Start: 11-19-2024 End: 11-19-2024 ambulatory Marissa Joseph Facility:[facility] Start: 10-15-2024 End: 10-15-2024 [facility] Start: 10-12-2024 End: 10-12-2024 Emergency department patient visit Rica Malys Facility:[facility] Start: 10-08-2024 End: 10-08-2024 ambulatory Marissa Joseph Facility:[facility] Start: 09-03-2024 End: 09-03-2024 ambulatory Rica Malys Facility:[facility] Start: 07-27-2024 End: 07-28-2024 ambulatory Tre Anderson Facility:[facility] Start: 07-13-2024 End: 07-13-2024 ambulatory Martin Trejo Facility:[facility] Start: 06-06-2024 End: 06-06-2024 ambulatory Marissa Joseph Facility:[facility] Start: 06-01-2024 End: 06-01-2024 ambulatory Rica Malys Facility:[facility] Start: 05-14-2024 ambulatory Marissa Joseph Facility :[facility] Start: 05-07-2024 End: 05-07-2024 ambulatory Rica Malys Facility:[facility] Start: 04-02-2024 End: 04-02-2024 ambulatory Marissa Joseph Facility:[facility] Start: 11-03-2023 Telephone encounter Yovanny Rogers i, MD Work Phone: [facility] Comment on above: Referral (Confirm re ceipt of referral faxed 11/01/23) Start: 09-06-2023 End: 09-07-2023 ambulatory RENITA MIJRAES [facility] Start: 09-06-2023 End: 09-06-2023 Subsequent hospital visit by physician Renita Mijares DO Work Phone: [facility] Comment on above: Diarrhea, unspecifie d type (Primary Dx) Start: 02-22-2023 End: 02-24-2023 ambulatory PJ MAHONEY Facility:[facility] Start: 02-22-2023 End: 02-24-[address] PJ MAHONEY MD [facility] Start: 02-03-2023 End: 02-04-2023 ambulatory PJ MAHONEY Facility:[facility] Start: 02-03-2023 End: 02-04-2023 ambulatory PJ MAHONEY Facility:[facility] Start: 02-03-2023 End: 02-03-[address] PJ MAHONEY MD [facility] Start: 02-03-2023 End: 02-03-[address] PJ MAHONEY MD [facility] Start: 10-06-20[address]-Myke Yoonkassandratiti Work Phone: [facility] Comment on above: Page Out Start: 09-27-2022 Orders Only Nicolás Swenson Work Phone: Orthopaedics Comment on above: 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 Rica Padgett Work Phone: [facility] Work Phone: Start: 09-20-2022 End: 09-20-[address] Rica Padgett Work Phone: [facility]-Laboratory Start: 09-17-2022 Non-patient / Non-visit Dr. Angela Padgett Work Phone: [facility] Start: 09-17-2022 Non-patient / Non-visit Dr. Angela Padgett Work Phone: [facility] Start: 09-16-2022 Non-patient / Non-visit Dr. Angela Padgett Work Phone: [facility] Start: 09-16-2022 End: 09-17-2022 Evaluation and management of inpatient Dr. Rica Padgett Work Phone: [facility]-Medical Surgical 3 Start: 09-15-2022 End: 01-18-[address] Rica Padgett Work Phone: [facility] Work Phone: Start: 09-15-2022 End: 09-15-[address] Rica Padgett Work Phone: [facility]-Cardiovascular Services Start: 09-13-2022 End: 09-13-[address] Rica Padgett Work Phone: [facility] Start: 07-07-2022 End: 07-07-[address] Rica Padgett Work Phone: [facility] Work Phone: Start: 07-07-2022 End: 07-07-[address] Rica Padgett Work Phone: [facility] Start: 06-23-2022 Telephone encounter Nicolás velazquez MD Work Phone: Orthopaedics Comment on above: Question Start: 05-19-2022 End: 05-19-[address] Rica Padgett Work Phone: [facility] Start: 05-19-2022 End: 05-19-2022 ambulatory NICOLÁS AGGARWAL Facility:[facility] Start: 05-19-2022 End: 05-19-2022 Patient encounter procedure Nicolás Aggarwal MD Work Phone: Orthopaedics Comment on above: Pes planus of left f oot (Primary Dx); Primary osteoarthritis of left foot; Diabetic neuropathy, painful (HCC); Acquired valgus deformity of left ankle Start: 05-19-2022 End: 05-19-2022 Subsequent hospital visit by physician Mehdi Valverde [facility] Work Phone: Radiology Comment on above: Pain [R52] Start: 03-29-2022 End: 03-29-[address] Rica Padgett Work Phone: [facility] Start: 01-30-2022 End: 01-31-2022 Emergency department patient visit Dr. Rica Padgett Work Phone: [facility]-Emergency Department Start: 01-25-2022 End: 01-25-2022 Emergency department patient visit Dr. Rica Padgett Work Phone: [facility]-Emergency Department Start: 11-12-2021 End: 11-12-[address] Rica Padgett Work Phone: [facility] Start: 11-11-2021 End: 11-11-[address] Rica Padgett Work Phone: [facility] Start: 11-10-2021 End: 11-10-[address] Rica Padgett Work Phone: [facility]-Pre-Admission Testing Start: 11-10-2021 Non-patient / Non-visit Dr. Angela Padgett Work Phone: [facility] Start: 09-25-2021 End: 09-25-2021 Admission to same day surgery center Dr. Rica Padgett Work Phone: [facility]-Surgical Day Care Start: 08-07-[address] iRca Padgett Work Phone: [facility] Start: 05-21-2021 End: 05-22-2021 Emergency department patient visit Silvana Henderson [facility] 11 Start: 02-13-2021 End: 02-13-2021 Emergency department patient visit Jesus Amezquita [facility] Emergency 11 Start: 02-08-2020 End: 02-08-2020 Patient encounter procedure PB [facility]UM[facility] Start: 02-07-2015 End: 02-07-2015 Telephone encounter [...] Pelvic & Breast Exam (Medicare) Azra Gee DIRECTOR OF LOGISTICS Work Phone: Start: 12-09-2016 End: 12-09-2016 *BMP [...] Screening for malign ant neoplasm of colon [facility] Start: 05-22-2029 Screening for malign ant neoplasm of colon [facility] Start: 10-05-2025 Diabetes mellitus screening Diabetes Screening [facility] Start: 03-28-2025 ambulatory Ambulatory Facility:[facility] Start: 10-05-2023 Hemoglobin A1c measurement Diabetes: Hemoglobin A1C [facility] Start: 10-01-2023 Lipid panel Lipid Panel [facility] Start: 10-01-2023 Thyroid stimulating hormone measurement TSH Level [facility] Start: 08-29-2023 Medicare Advantage A nnual Wellness Visit Medicare Advantage Annual Wellness Visit [facility] Start: 08-05-2023 COVID-19 Vaccine (4 - Pfizer series) COVID-19 Vaccine (4 - Pfizer series) [facility] Start: 2023 Advance Directive Discussion Advance Directive Discussion [facility] Start: 2023 Bone Density Screening Bone Density Screening [facility] Start: 2023 Pneumococcal Vaccine : 65+ Years (2 of 2 - PCV) Pneumococcal Vaccine: 65+ Years (2 of 2 - PCV) [facility] Start: 04-29-2023 COVID-19 Vaccine ( season) COVID-19 Vaccine ( season) [facility] Start: 04-29-2023 Influenza vaccination Influenza Vacc ine (#1) [facility] Start: 04-01-2023 Depresssion Monitoring Depresssion M onitoring [facility] Start: 01-02-2023 Hemoglobin A1c measurement Diabetes: Hemoglobin A1C [facility] Start: 09-17-[facility]22 [facility] Start: 09-16-2022 Ambulation without limitation [facility] Start: 09-16-2022 Assessment of risk o f venous thromboembolism [facility] Start: 09-16-2022 Care regimes management [facility] Start: 09-16-2022 Catheterization of vein [facility] Start: 09-16-2022 Continuous positive airway pressure ventilation treatment [facility] Start: 09-16-2022 Insertion of cathete r into peripheral vein [facility] Start: 09-16-2022 Notification of physician [facility] Start: 09-16-2022 Oxygen therapy [facility] Start: 09-16-2022 Providing care accor ding to standard [facility] Start: 09-16-2022 [facility] Start: 09-16-2022 Admission procedure [facility] Start: 09-16-2022 Following clinical pathway protocol [facility] Start: 09-16-2022 Patient referral to dietitian [facility] Start: 08-29-2022 DEPRESSION ASSESSMENT DEPRESSION ASS ESSMENT [facility] Start: 04-29-2022 Influenza vaccination INFLUENZA (#1) [facility] Start: 04-09-2022 DIABETES SCREEN DIABETES SCREEN [facility] Start: 09-25-2021 Anesthesia lumbar re gion nos ANESTH SPINE CORD SURGERY [facility] Work Phone: Start: 09-25-2021 Impltj/rplcmt ithcl/ edrl drug nfs prgrbl pump IMPLANT SPINE INFUSION PUMP [facility] Work Phone: Start: 08-29-2021 [facility] Start: 04-29-2021 Influenza vaccination INFLUENZ A (Season Ended) [facility] Start: 04-09-2020 Hepatitis B screening URINE ALBUMIN:CREATININE RATIO [facility] Start: 2018 Hepatitis B Vaccine (1 of 3 - Risk 3-dose series) Hepatitis B Vaccine (1 of 3 - Risk 3-dose series) [facility] Start: 2018 RSV Immunization age d 60 or older (1 - 1-dose 60+ series) RSV Immunization aged 60 or older (1 - 1-dose 60+ series) [facility] Start: 07-25-2017 End: 07-25-2017 Appointment Appointment [facility] Start: 03-22-2017 Mammography [facility] Start: 12-09-2016 End: 12-09-2016 *BMP *BMP [facility] Start: 12-09-2016 End: 12-10-2016 *Hepatic Function Panel *Hepatic Function Panel [facility] Start: 12-09-2016 End: 12-09-2016 Ct abdomen & pelvis w/contrast material CT Abdomen/pelvis; with contrast [facility] Start: 12-09-2016 End: 12-10-2016 Follow Up after Imaging/labs Follow Up after Imaging/labs [facility] Start: 12-09-2016 End: 12-09-2016 Lipase *Lipase [facility] Start: 12-08-2015 End: 12-08-2015 *CBC with Differential *CBC with Differential [facility] Start: 12-08-2015 End: 12-08-2015 *CMP Complete Metabolic Panel *CMP Complete Metabolic Panel [facility] Start: 12-08-2015 End: 12-08-2015 *PROTS Protein S Defic. Profile [id number] *PROTS Protein S Defic. Profile [id number] [facility] Start: 12-08-2015 End: 12-08-2015 *UA - Urinalysis w/o Micro *UA - Urinalysis w/o Micro [facility] Start: 12-08-2015 End: 12-08-2015 Antithrombin actual/normal in Platelet poor plasma by Chromogenic method *AT3 - Antithrombin 3 Activity [id number] [facility] Start: 12-08-2015 End: 12-08-2015 Cardiolipin Antibodies (IgA IgG IgM) Cardiolipin Antibodies (IgA IgG IgM) [facility] Start: 12-08-2015 End: 12-08-2015 Clotting inhibitors protein c activity Protein C Activity [facility] Start: 12-08-2015 End: 12-08-2015 Ct thorax w/contrast material CT Chest with Contrast [facility] Start: 12-08-2015 End: 12-08-2015 Factor V (Leiden) Mutation Analysis Factor V (Leiden) Mutation Analysis [facility] Start: 12-08-2015 End: 12-08-2015 Lipid panel [AGGREGATE] *Lipid Profile [facility] Start: 12-08-2015 End: 12-08-2015 Thyroid stimulating hormone (TSH) *TSH [facility] Start: 12-08-2015 End: 12-08-2015 Urine, microalbumin *Urine, Microalbumin [facility] Start: 07-29-2015 LIPID SCREEN LIPID SCREEN [facility] Start: 02-26-2014 Screening for malign ant neoplasm of colon SIGMOIDOSCOPY [facility] Start: 02-26-2014 SIGMOIDOSCOPY SIGMOIDOSCOPY [facility] Start: 03-19-2013 Colonoscopy COLONOSCOPY [facility] Start: 03-19-2013 COLORECTAL CANCER SCREENING COLORECTAL CANCER SCREENING [facility] Start: 03-19-2013 Screening for malign ant neoplasm of colon [facility] Start: 07-03-2011 Hemoglobin A1c/Hemoglobin.total in Blood HBA1C [facility] Start: 2008 Screening for malign ant neoplasm of colon [facility] Start: 2008 SHINGRIX VACCINE (1 of 2) ROMAN GRIX VACCINE (1 of 2) [facility] Start: 2003 COLOGUARD (FIT-DNA) COLOGUARD (FIT-D NA) [facility] Start: [address] COLONOGRAPHY [facility] Start: 2003 FECAL OCCULT BLOOD FECAL OCCULT BLOO D [facility] Start: 1998 Screening for malign ant neoplasm of breast Mammogram [facility] Start: 1988 Screening for malign ant neoplasm of cervix [facility] Start: 1980 DTaP/Tdap/Td Vaccine s (1 - Tdap) DTaP/Tdap/Td Vaccines (1 - Tdap) [facility] Start: 1979 Screening for malign ant neoplasm of cervix [facility] Start: 1977 DTaP/Tdap/Td Vaccine s (1 - Tdap) DTaP/Tdap/Td Vaccines (1 - Tdap) [facility] Start: 1977 Urine microalbumin profile [facility] Start: 1977 Urine screening for protein Diabetes: Urine Protein Screening [facility] Start: 1976 ANNUAL PCP TEAM TUNNEL INSPECTOR DYLAN DISEASE VISIT ANNUAL PCP TEAM CHRONIC DISEASE VISIT [facility] Start: 1976 Hepatitis B surface antibody level LDL CHOLESTEROL [facility] Start: 1976 HEPATITIS C SCREENING HEPATITIS C SC REENING [facility] Start: 1976 Hepatitis C screening Hepatitis C Sc reening [facility] Start: 1976 HIV SCREENING HIV SCREENING [facility] Start: 1970 Adult depression screening assessment DEPRESSION SCREENING [facility] Start: 1968 3 comp foot exam completed DIABETIC FOOT EXAM [facility] Start: 1968 Diabetic foot examination Diabetes: Foot Exam [facility] Start: 1968 Glaucoma screening Diabetes: R etinopathy Screening [facility] Start: 1968 Hepatitis B screening Urine Albumin:Creatinine Ratio [facility] Start: 1968 Hepatitis C antibody , confirmatory test DILATED RETINAL EXAM [facility] Start: 1968 Preventive dental service Diabetes: Dental Exam [facility] Start: 1964 PNEUMOCOCCAL (1 - PCV) PNEUMOCOCCAL (1 - PCV) [facility] Start: 1964 Pneumococcal Vaccine : 65+ (1 - PCV) Pneumococcal Vaccine: 65+ (1 - PCV) [facility] Start: 1959 MMR Vaccines (1 of 1 - Standard series) MMR Vaccines (1 of 1 - Standard series) [facility] Start: 1958 COVID-19 VACCINE (#1) COVID-19 VACCI NE (#1) [facility] Start: 1958 Annual wellness visit Medicare Initial Physical (IPPE) [facility] Start: 1958 Hepatitis B Vaccines (1 of 3 - 3-dose series) Hepatitis B Vaccines (1 of 3 - 3-dose series) [facility] Start: 1958 HIV screening HIV Screening [facility] Start: 1958 Lipid panel Lipid Panel [facility] Start: 1958 Screening for malign ant neoplasm of colon [facility] Start: 1958 Screening for osteoporosis Bone Density Scan [facility] Start: 1958 Thyroid stimulating hormone measurement TSH Level [facility] End: 09-06-2023 Moderate Sedation Moderate Sedation Procedures Routine Once for 1 Occurrences starting 09/06/2023 until 09/06/2023 [facility] Service Area Work Phone: Comment on above: Once for 1 Occurrenc es starting 09/06/2023 until 09/06/2023 Patient Education [facility] Patient referral [facility] Work Phone: End: 10-27-2023 XR ANKLE GENERAL 3V AP/LAT/OBL LEFT XR ANKLE GENERAL 3V AP/LAT/OBL LEFT Radiology Routine Acquired valgus deformity of left ankle 1 Occurrences starting 09/28/2022 until 10/27/2023 [facility] Work Phone: Comment on above: 1 Occurrences starti ng 09/28/2022 until 10/27/2023 [facility] Immunizations Immunization Date Immunization Notes Care Provider [facility] 06-16-2022 influenza virus vaccine, unspecified formulation Yovanny Landis MD Work Phone: [facility] 06-25-2018 influenza virus vaccine, unspecified formulation Xr Rej Work Phone: [facility] 05-29-2015 influenza, seasonal, injectable Dr. Rica Padgett Work Phone: [facility] 06-29-[address] Rica Padgett Work Phone: [facility] 07-26-2012 influenza virus vaccine, unspecified formulation Azra Gee Work Phone: [facility] 05-13-[address] Danya Padgett Work Phone: [facility] Work Phone: 05-13-2012 pneumococcal vaccine , unspecified formulation Dr. Rica Padgett Work Phone: [facility] NEGATED: Highlighted row has not occurred!10-03-2022 Influenza, injectable, Madin [place] Canine Kidney, preservative free, quadrivalent Tre Anderson DO Work Phone: [facility] Comment on above: Deferred: Patient Re fused Payers Date Payer Category Payer Self-pay [id number] 2022 [facility] and others) [id number] 2022 [employer] ( and others) [id number] 2022 Private Health Insurance [id number] 2022 Medicare [id number] 2017 Unknown [id number] 2013 [employer] ( and others) [id number] 2013 Unknown FOR LIFE [id number] 2013-Present Indemnity [id number] 2007 Medicare MEDICARE MEDICAR E B [id number] 2007-2016 [place] [id number] 2007 Medicare [id number] 1.13.159.2 .[id number] 2004 Medicare [id number] 2004 Medicare MEDICARE MEDICAR E A AND B [id number] 2004-Present [place] Medicare [id number] .[id number] 2004 Unknown 1958 Unknown [id number] 2.16.840.1.956546.3.579.2 .651 1958 Unknown [id number] 2.16.840.1.830107.3.579.2 .627 1958 Unknown [id number] 2.16.840.1.869955.3.579.2 .627 1958 Unknown [id number] 2.16.840.1.565932.3.579.2 .627 1958 Unknown [id number] 2.16.840.1.338238.3.579.2 .1243 Unknown [id number] 2.16.840.1.784739.3.579.2 .462 Unknown [id number] 2.16.840.1.279826.3.579.2 .462 Unknown [id number] 2.16.840.1.141213.3.579.2 .462 Unknown [id number] 2.16.840.1.276092.3.579.2 .462 Unknown [id number] 2.16.840.1.688998.3.579.2 .462 Unknown [id number] 2.16.840.1.053715.3.579.2 .462 Unknown [id number] 2.16.840.1.777297.3.579.2 .462 Unknown [id number] 2.16.840.1.419065.3.579.2 .462 Unknown [id number] 2.16.840.1.022121.3.579.2 .462 Unknown [id number] 2.16.840.1.962322.3.579.2 .462 Unknown [id number] 2.16.840.1.199279.3.579.2 .462 Unknown [id number] 2.16.840.1.248320.3.579.2 .462 Unknown [id number] 2.16.840.1.276712.3.579.2 .462 Unknown [id number] 2.16.840.1.360157.3.579.2 .462 Unknown [id number] 2.16.840.1.221701.3.579.2 .462 Unknown [id number] 2.16.840.1.747825.3.579.2 .462 Unknown [id number] 2.16.840.1.432962.3.579.2 .462 Unknown [id number] 2.16.840.1.222076.3.579.2 .462 Unknown [id number] 2.16.840.1.316787.3.579.2 .462 Unknown [id number] 2.16.840.1.969596.3.579.2 .462 Unknown [id number] 2.16.840.1.176341.3.579.2 .462 Unknown [id number] 2.16.840.1.933626.3.579.2 .462 Unknown [id number] 2.16.840.1.787749.3.579.2 .462 Unknown [id number] 2.16.840.1.508489.3.579.2 .462 Social History Date Type Detail Facility Start: 03-06-2011 End: 09-21-2012 Tobacco smoking status MTIS Former smoker [facility] Work Phone: Comment on above: quit in 1993 End: 03-21-1994 History of tobacco use Current smoker [facility] Start: 09-21-2012 End: 09-06-2023 Tobacco use and exposure Never used [facility] Start: 09-21-2012 Alcohol intake Current non-dr linker up of alcohol (finding) [facility] Start: 1960 Sex Assigned At Not on file [facility] Start: 11-10-2021 End: 09-16-2022 Tobacco smoking consumption unknown [facility] Start: 08-11-2019 Rare [facility] Start: 08-11-2019 None [facility] Start: 12-08-2020 Spouse/ Signif icant Other [facility] Start: 05-18-2019 Non-smoker [facility] Start: 1960 Sex Assigned At Female [facility] End: 03-21-1994 History of tobacco use Cigarette Smoker [facility] Work Phone: Start: 04-13-2022 Alcohol intake Current drinke r of alcohol (finding) [facility] Start: 04-09-2019 History SDOH Alcohol Comment rarely [facility] Start: 05-09-2022 End: 09-06-2023 Exposure to SARS-CoV-2 (event) Not sure [facility] Start: 02-03-2023 End: 09-06-2023 Tobacco smoking status Never smoked tobacco (finding) [facility] Sex Assigned At Sex [facility] Start: 04-13-2022 End: 10-02-2022 History of Social function [facility] Start: 04-13-2022 End: 10-02-2022 Tobacco use panel [facility] National Score (1-10 0), lower number is lower risk Not on file [facility] Start: 09-06-2023 Alcohol intake Lifetime non-d sue (finding) [facility] Work Phone: Within the last year , have you been afraid of your partner or ex-partner? No [facility] How often to you hav e a drink containing alcohol? Monthly or less [facility] How many standard drinks containing alcohol do you have on a typical day? 1 or 2 [facility] How often do you hav e 6 or more drinks on 1 occasion? Never [facility] Start: 10-04-2022 Sexual orientation Heterosexual (fin omari) [facility] Start: 10-02-2022 History SDOH Alcohol Frequency 2 [facility] Start: 10-02-2022 History SDOH Alcohol Std Drinks 1 [facility] Medical Equipment Procedure Code Equipment Code [...] Facility 02-24-2023 Functional Status Room check performed [facility] 02-24-2023 Functional Status [facility] 02-24-2023 Functional Status Independent [facility] 02-24-2023 Functional Status Min A [facility] 02-24-2023 Functional Status Demonstrates C orrect Call Light Use Yes [facility] 02-23-2023 Functional Status [facility] 02-23-2023 Functional Status Dinner Percent 25 [facility] 02-23-2023 Functional Status [facility] 02-23-2023 Functional Status 60 [facility] 02-23-2023 Functional Status 2 [facility] 02-23-2023 Functional Status Single level home [facility] 02-23-2023 Functional Status [facility] 02-22-2023 Functional Status [facility] 02-22-2023 Functional Status [facility] 02-22-2023 Functional Status Cane, Walker [facility] 02-22-2023 Functional Status ice on, tension pillow in place [facility] 02-22-2023 Functional Status NPO Status Maintained A [facility] 02-03-2023 Functional Status Sensory Deficits None [facility] 09-17-2022 Functional status Ambulates [facility] Work Phone: Mental Status Date Assessment Result Facility 02-24-2023 Mental Status Orientation Asse ssment Oriented x 4 [facility] 02-24-2023 Mental Status [facility] 02-24-2023 Mental Status Oriented x 4 [facility] 02-23-2023 Mental Status [facility] 02-23-2023 Mental Status [facility] aissatou Carlson 09-16-2022 Cognitive function Voice/Name [facility] Work Phone: 01-30-2022 Cognitive function Level Of Cons ciousness Awake;Alert;Appropriate;Follow s Commands [facility] Work Phone: 09-25-2021 Cognitive function Level Of Cons ciousness Appropriate;Drowsy [facility] Work Phone: 09-25-2021 Cognitive function Voice/Name [facility] Work Phone: Clinical Notes 02-07-2015 to 07-28-2024 Telephone Encounter - Kitty Greco - 11/07/2023 10:14 AM EDTTelephone Encounter - Kitty Greco - 11/07/2023 10:14 AM EDTTelephone Encounter - Maria Teresa Bacon - 11/03/2023 9:43 AM EST Note Date & Type Note Facility 07-28-2024 Note [facility] Medical Records Department [address] [place] [address] Discharge Summary 07/28/24 1433 MR#: [id number] Acct: [id number] Name: FLEX WOOTEN Rep #: [id number] : 1960 64 From: Tre Anderson DO PCP: Dr. Rica Padgett DO Status:ADM LATRICIA Location: [place] [address] Providers Date of Admission: 07/27/24 Primary Care [...] would like to follow up with the [facility] instead. Chronic conditions: * Type 2 [...] Course Operations No (more content not included)... [facility] 11-07-2023 Note Spoke to patient and advised her that we have not received her referral and requested her to have her pcp refax the referral to us. Patient verbalized understanding. [facility] 11-07-2023 Telephone encounter Note Spoke to patient and advised her that we have not received her referral and requested her to have her pcp refax the referral to us. Patient verbalized understanding. [facility] 11-07-2023 Miscellaneous Notes Spoke to patient and advised her that we have not received her referral and requested her to have her pcp refax the referral to us. Patient verbalized understanding. Name of caller: Flex Contact phone number: [phone] Relationship to Patient: patient Provider: Dr. Landis [...] their call: No documented in this encounter [facility] 11-03-2023 Telephone encounter Note Name of caller: Flex Contact phone number: [phone] Relationship to Patient: patient Provider: Dr. Landis [...] business hours to return their call: No [facility] 09-06-2023 Hospital Discharg e instructions Mariia Mcghee [...] having your procedure, call the [facility] to be advised whether a visit to [...] Lab, please call: Nurse Signature Date Patient/Responsible [employer] Signature Date documented in this encounter [facility] Work Phone: 09-06-2023 History and physical [...] care of this patient. Renita Mijares DO [facility] Work Phone: 09-06-2023 History and physical note [...] Renita Mijares DO documented in this encounter [facility] Work Phone: 09-06-2023 Miscellaneous Notes Patient: Flex Wooten Pre-sedation Evaluation: Sedation necessary for: Analgesia Requesting service: Endoscopy History of Present Illness: Colonoscopy Past Medical History: Diagnosis Date Anxiety Chronic pain Depression Diabetes mellitus (CMS/HCC) Disease of thyroid gland Sleep apnea Principle problems: There are no problems to display for this patient. 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 Form: 338A (79118) R: 01/02 Follow Up Care 08/11/2022 13:44:36 With:MATTHEW HERNÁNDEZ PA-C, Orthopedic Address: [facility] [address] [place] [address]- When:03/07/2023 10:15:00 [facility] 02-24-2023 Note Discharge Instructions Thank you for allowing [facility] to assist you with your healthcare needs. The following is important discharge information regarding your hospital visit. Your Care Team [facility] Your Diagnosis Osteoarthritis Diabetes HTN (hypertension) Sleep apnea Status post total right knee replacement What to do next Follow Up Appointments Follow Up with MATTHEW HERNÁNDEZ PA-C, Orthopedic When 03/07/2023 10:15 AM EDT Where: [facility] [address] [place] [address]- The Following Activity and Diet Have Been [...] FOR SIGNS OF INFECTION: call the office ([phone]) if experencing any of the following: (Usually [...] on your follow up instructions. Form: 338A (16541) R: 01/02 Additional Information VACCINATE! IT SAVES LIVES! Members of the community who have not yet received the COVID-19 vaccine and would like to receive it can visit one of [facility] vaccine clinics. There are many vaccine clinic locations within the [facility]. For locations and available times, please visit https://gettheshot.coronavirus.o hio.gov/. It is important to note that some COVID mobile vaccine clinics are held outdoors and may be canceled in rainy or stormy conditions. To learn more about pediatric vaccinations (ages 5-11), we invite you to visit the [facility] webpage. https://www.[email or web address].org/p ages/4826-Ijhun-Mbwptmopund-Freq sfeqhe-Qaisx-Iivrsvpdi.html To learn more about the COVID-19 vaccine, we invite you to visit the CDC website for a list of frequently asked questions.https://www.cdc.gov/co ronavirus/2019-ncov/vaccines/faq .html [employer] Patient Portal Access Instructions: Stay connected with your healthcare team and access your personal medical information anytime with the [employer] Patient Portal. Please follow the directions below to create your [employer] account: 1.Access the email account you provided upon registration to the hospital/physician office.2.Look for an invitation email from [facility].3.Open the email and access the invitation link: Accept Invitation to [employer].4.Fill in the required morocho to create your account. To access your account, visit [email or web address]. Click the blue button labeled Access Patient [...] you will allow to register on the [facility] [employer] Patient Portal for access to your information. You can also access the [facility] [employer] Patient Portal on the [facility] [employer] otoniel. Simply click on Patient Portal and then log into your account. If you would like to receive a full copy of your medical records, please contact the [facility] Medical Records Department by calling [phone], Tuesday through Tuesday between 8 a.m. and [...] Call your local pharmacy or go to http://bit.ly/4T8Hu8b to find one close to you.3.Make use of household items: Use cat litter or old coffee grounds to dispose medications if other options are not available. Mix your drugs with these household products, seal them in an airtight container and throw it into the garbage. Call [facility]: [phone] to be sure your drugs can be [...] Education Materials [facility] Post-op Instruction 03/2017 (06912) Medication Leaflets My discharge plan and instructions have been reviewed and explained to me and I,FLEX WOOTEN understand my current condition and have read and understand these discharge instructions. I have received a written copy of the plan/instructions. If I have questions, I am aware that I should contact my doctor. 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 The following is important discharge information regarding your hospital visit. Your Care Team [facility] Your Diagnosis Osteoarthritis Diabetes HTN (hypertension) Sleep apnea Status post total right knee replacement What to do next Follow Up Appointments Follow Up with MATTHEW HERNÁNDEZ PA-C, Orthopedic When 03/07/2023 10:15 AM EDT Where: [facility] [address] [place] [address]- The Following Activity and Diet Have Been [...] The extended-release form of oxycodone is for cpnpys-nvp-fjorq treatment of pain and should not be [...] against the law. Stop taking all other lpqjmw-kcc-edcwe opioid pain medicines when you start taking [...] may report side effects to FDA at 8-888-PXC-3964. What other drugs will affect oxycodone? You [...] may affect oxycodone. This includes prescription and urqm-tqo-efnpngq medicines, vitamins, and herbal products. Not all [...] to ensure that the information provided by [employer] is accurate, up-to-date, and complete, but no guarantee is made to that effect. Drug information contained herein may be time sensitive. [employer] information has been compiled for use by healthcare practitioners and consumers in the [place] and therefore [employer] does not warrant that uses outside of the [place] are appropriate, unless specifically indicated otherwise. [employer]'s drug information does not endorse drugs, diagnose patients or recommend therapy. [employer]'s drug information is an informational resource designed [...] effective or appropriate for any given patient. [facility] does not assume any responsibility for any aspect of healthcare administered with the aid of information [facility] provides. The information contained herein is not intended to cover all possible uses, directions, precautions, warnings, drug interactions, allergic reactions, or adverse effects. If you have questions about the drugs you are taking, check with your doctor, nurse or pharmacist. Copyright 7337-9586 [facility]. Version: 14.02. Revision Date: 09/25/2020. Education Materials [facility] Post-operative Instructions PLEASE FOLLOW [facility] POST-OP INSTRUCTIONS GIVEN WATCH FOR SIGNS OF INFECTION: call the office ([phone]) if experencing any of the following: (Usually [...] on your follow up instructions. Form: 338A (49270) R: 01/02 Additional Information VACCINATE! IT SAVES LIVES! Members of the community who have not yet received the COVID-19 vaccine and would like to receive it can visit one of [facility] vaccine clinics. There are many vaccine clinic locations within the [facility]. For locations and available times, please visit https://gettheshot.coronavirus.o hio.gov/. It is important to note that some COVID mobile vaccine clinics are held outdoors and may be canceled in rainy or stormy conditions. To learn more about pediatric vaccinations (ages 5-11), we invite you to visit the [facility] webpage. https://www.[facility].org/p ages/0406-Qsyjl-Dgdicnoshga-Freq qljnpn-Qqsrt-Qjyollvhb.html To learn more about the COVID-19 vaccine, we invite you to visit the CDC website for a list of frequently asked questions.https://www.cdc.gov/co ronavirus/2019-ncov/vaccines/faq .html [facility] [employer] Patient Portal Access Instructions: Stay connected with your healthcare team and access your personal medical information anytime with the [employer] Patient Portal. Please follow the directions below to create your [employer] account: 1.Access the email account you provided upon registration to the hospital/physician office.2.Look for an invitation email from [facility].3.Open the email and access the invitation link: Accept Invitation to [facility] [employer].4.Fill in the required morocho to create your account. To access your account, visit [employer]. Click the blue button labeled Access Patient [...] you will allow to register on the [facility] [employer] Patient Portal for access to your information. You can also access the [facility] Patient Portal on the [employer] Anywhere otoniel. Simply click on Patient Portal and then log into your account. If you would like to receive a full copy of your medical records, please contact the [facility] Medical Records Department by calling [phone], Tuesday through Tuesday between 8 a.m. and [...] Call your local pharmacy or go to http://brittany/[email or web address] to find one close to you.3.Make use of household items: Use cat litter or old coffee grounds to dispose medications if other options are not available. Mix your drugs with these household products, seal them in an airtight container and throw it into the garbage. Call [facility]: [phone] to be sure your drugs can be [...] [facility] - [facility] Post-op Instruction 03/2017 (48845) Medication Leaflets oxycodone My discharge plan and instructions have been reviewed and explained to me and IJE ANN E understand my current condition and have read and understand these discharge instructions. I have received a written copy of the plan/instructions. If I have questions, I am aware that I should contact my doctor. 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 Patient denies any chest pain, shortness of breath, dizziness, lightheadedness, nausea or vomiting, or calf pain. No adverse overnight events. Pain has been controlled on medications. Patient was evaluated by physical therapy. Discharge planning is possible home health versus [facility] facility. She has had a previous left total knee arthroplasty that did require [facility] facility in the past. She states she went to [facility]. We do have physical therapy currently on [...] possible discharge home with home health for [facility] facility. Patient does have steps to manage [...] of pulmonary embolism. I have reviewed the [place] Automated Rx Reporting System (OARRS) report for [...] MATTHEW HERNÁNDEZ PA-C on 02/23/2023 07:28 AM [facility] 02-22-2023 Note ORIGINAL EXAMINATION: TWO XRAY [...] 02/22/2023 1:07:27 PM Ordering Provider: PJ MAHONEY [facility] 02-22-2023 Note ORIGINAL EXAMINATION: TWO XRAY [...] Date: 02/22/2023 1:07:27 PM Ordering Provider: PJ [facility] 02-22-2023 Anesthesiology Consult note Patient: FLEX WOOTEN Age: 62 years Sex: Female : 1960 Associated Diagnoses: None Author: MARTINA GOODWIN APRN-LANDSCAPING AND GROUNDSKEEPING LABORER Preoperative Information Time of last food or [...] Sister Diabetes Mother Sister Procedure history: Bunionectomy ([id number]). Comments: 02/03/2023 13:48 Hansa Álvarez RN BILATERAL Plantar fasciectomy ([id number]). Comments: 02/03/2023 13:48 Hansa Álvarez RN LEFT Fusion of lumbosacral region of spine by posterior approach ([id number]). Carpal tunnel release ([id number]). Comments: 02/03/2023 13:50 Hansa Álvarez RN BILATERAL Tonsillectomy and adenoidectomy ([id number]). Tubal ligation ([id number]). Hysterectomy ([id number]). Pump, device ([id number]). Comments: 02/03/2023 13:51 EDT - Hansa Nelson RN PAIN PUMP Total knee arthroplasty ([id number]). Comments: 02/03/2023 13:52 EDT - Hansa Nelson [...] Resp Rate 17 br/min (FEB 22 09:31) RMV453 mmHg (FEB 22 09:31) DBP77 mmHg (FEB 22 09:31) Measurements from flowsheet : Measurements 02/22/2023 9:31 EDT Height 162.6 cm Admission Weight 110 kg [place] Body Weight 54.74 kg Admission Body Mass [...] Height 162.6 cm Admission Weight 110 kg [place] Body Weight 54.74 kg Admission Body Mass [...] no difficulties Skin Temperature Warm Skin Description Richardson, Normal for ethnicity, Dry Skin Integrity Intact Mucous Membrane Color Richardson Skin Moisture General Dry IV Present Present [...] no symptoms Safety Brochure Information Reviewed Yes [facility] Video Viewed No Teaching Evaluation No further teaching needed Admission Note-Nursing Same Day Patient History (Modified) . Assessment and Plan [place] Society of Anesthesiologists (ASA) physical status classification: [...] by MARTINA GOODWIN on 02/22/2023 10:59 AM [facility] 10-06-2022 Telephone encounter Note Name of caller requesting page:Matthew Phone Number of caller: [phone] ext [phone] Facility requesting page: [facility] Reason for Page: [...] a peer to peer review with their phlebotomist medical lab assistant. The acceptance date for the peer to peer is on or before 10/08/22 at 3pm. Peer to Peer can be scheduled by call Matthew at [phone] ext [phone] with reference number [id number]. Thank you. Response from Dr. Wright: I have never seen or met the patient Im not sure who needs to be contacted for this patient Reached out to [facility] management. Advised to call Ray back. Spoke with another nurse advisor. Asked when order was placed, was advised it was 09/30/22 which was before pt had a chart with [facility]. There is another Dr. Tre Anderson at [facility]. That is where the records came from. The nurses states they will reach out to [facility]. [facility] 10-06-2022 Miscellaneous Notes Name of caller requesting page:Matthew Phone Number of caller: [phone] ext [phone] Facility requesting page: [place] Reason for Page: [...] a peer to peer review with their phlebotomist medical lab assistant. The acceptance date for the peer to peer is on or before 10/08/22 at 3pm. Peer to Peer can be scheduled by call Matthew at [phone] ext [phone] with reference number [id number]. Thank you. Response from Dr. Wright: I have never seen or met the patient Im not sure who needs to be contacted for this patient Reached out to [facility] management. Advised to call Ray back. Spoke with another nurse advisor. Asked when order was placed, was advised it was 09/30/22 which was before pt had a chart with [facility]. There is another Dr. Tre Anderson at [facility]. That is where the records came from. The nurses states they will reach out to [facility]. documented in this encounter [facility] 06-23-2022 Miscellaneous Notes I left a message for Tessie at [employer] regarding their addendum request. If they have Dr. Montes note, they have all the answers they need. Not sure if they have the patient's clinic note. Mendy Adams RN documented in this encounter [facility] 05-19-2022 Note HNO ID: [id number] Author: Nicolás Aggarwal MD Service: ? Author [...] Date DVT (deep venous thrombosis) ([facility]) 2014 post knee replacement Fibromyalgia Hemorrhage of gastrointestinal tract, unspecified Hemorrhage of rectum and anus Internal hemorrhoids without mention of complication Other forms of migraine Other unspecified back disorder Pulmonary embolism ([facility]) 2014 PAST SURGICAL HISTORY Procedure Laterality Date [...] Lungs: No H (more content not included)... [facility] 05-19-2022 Note HNO ID: [id number] Author: RT Charley(R) Service: Radiology Author Type: [...] RT Charley(R) May 19, 2022 10:16 AM [facility] 05-19-2022 History of Presen t illness Narrative [...] Date DVT (deep venous thrombosis) ([facility]) 2013 post knee replacement Fibromyalgia Hemorrhage of gastrointestinal tract, unspecified Hemorrhage of rectum and anus Internal hemorrhoids without mention of complication Other forms of migraine Other unspecified back disorder Pulmonary embolism ([facility]) 2013 PAST SURGICAL HISTORY Procedure Laterality [...] X-Rays The patient's pertinent medical history from [facility] has been reviewed. PFOMIS forms have [...] records. This note was partially generated using Angella Joy voice recognition system, and there may be [...] Nicolás Aggarwal M.D. 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 Thanks. Patient received letter for annual mammogram, please place order and have placer miner call her. Patient prefers AM appts. documented in this encounter [facility] Evaluation + Plan note Future Appointments [facility] Evaluation note Diagnosis Other screening mammogram [facility] noteNo assessment information available[facility] Work Phone: Evaluation note* Diagnosis Pes planus of left foot- Primary Primary osteoarthritis of left foot Diabetic neuropathy, painful (HCC) Type II or unspecified type diabetes mellitus with neurological manifestations, not stated as uncontrolled Acquired valgus deformity of left ankle [facility] Diagnosis Onset Date Resolution Status Diabetes chronic High cholesterol chronic Hypertension chronic Obesity chronic Diabetes chronic Hypertension chronic Obesity chronic [facility] Work Phone: Evaluation note* Diagnosis Onset Date Resolution Status NIEVES (dyspnea on exertion) re solved Hypoxia resolved [facility] Work Phone: Evaluation note* Diagnosis Acquired valgus deformity of left ankle- Primary [facility] Diagnosis Pain Generalized pain documented in this encounter [facility] note* Diagnosis Diarrhea, unspecified type- Primary documented in this encounter [facility] Work Phone: Evaluation note* Diagnosis Diarrhea, unspecified type- Primary documented in this encounter [facility] Work Phone: Hospital course Narrative No data available for this section [facility] Hospital Discharge instructions No data available for this section [facility] Progress note No data available for this section [facility] Reason for referral (narrative)* Diagnostic Procedure Only (Routine) - Pending Review Specialty Diagnoses / Procedures Referred By Kelton t Referred To Contact XR IMAGING Diagnoses Acquired valgus deformity of left ankle Procedures XR ANKLE GENERAL 3V AP/LAT/OBL LEFT RADEX ANKLE COMPLETE MINIMUM 3 VIEWS Nicolás [place] [address] [place] [address] Xr Imaging Referral ID Status Reason Start Date Expiration Date Visits Requested Visits Authorized [id number] Pending Review Auto-Generat ed Referral 09/28/2022 10/27/2023 1 1 [facility] for referral (narrative)* Diagnostic Procedure Only (Routine) - Closed Specialty Diagnoses / Procedures Referred By Kelton t Referred To Contact XR IMAGING Diagnoses Pain Procedures XR FOOT GENERAL 3V AP/LAT/OBL LEFT RADEX FOOT COMPLETE MINIMUM 3 VIEWS Nicolás [place] [address] [place] [address] [place] [address] Referral ID Status Reason Start Date Expiration Date V isits Requested Visits Authorized [id number] Closed Auto-Generate d Referral 05/04/2022 06/03/2023 1 1 [facility] Summary Purpose Family History No Family History [...] No November 10, 2021 11:41am 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 No November 10 11:41am Advance Directive Response Recorded Date/ Time Advance Directives Yes August 01, 2015 5:05pm Living Will No January 25, 2022 2 :05pm 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 No January 25, 2022 2:05pm Advance Directive Response Recorded Date/ Time Advance Directives Yes August 01, 2015 5:05pm Living Will No January 30, 2022 1 1:58pm 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 No January 30, 2022 11:58pm Advance Directive Response Recorded Date/ Time Advance Directives Yes April 2:05pm Living Will No May 19, 2022 2:05pm 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 No April 2:05pm Advance Directive Response Recorded Date/ Time Advance Directives Yes April 2:05pm Living Will No September 16 5:52pm 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 No September 16, 2022 5:52pm Latest Code [...] RULE OUT PE SOB HYPERGLYCEMIA 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, 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 Reason for Visit Diabetes High cholesterol Hypertension Obesity Diabetes Hypertension Obesity Chief Complaint 3 M FU RULE OUT DVT HYPOXIA HYPOXIA HYPOXIA SOB Reason for Visit NIEVES (dyspnea on exer tion) Hypoxia Reason for Referral Specialty Diagnoses / Procedures Referred By Kelton t Referred To Contact Gastroenterology Diagnoses Diarrhea, unspecified type Procedures Colonoscopy Screening; Average Risk Patient DE COLONOSCOPY FLX DX W/COLLJ SPEC WHEN PFRMD DE COLON CA SCRN NOT HI RSK IND DE COLORECTAL SCRN; HI RISK IND DE COLONOSCOPY W/BIOPSY SINGLE/MULTIPLE DE COLSC FLX W/RMVL OF TUMOR POLYP LESION SNARE TQ DE COLSC FLX W/REMOVAL LESION BY HOT BX FORCEPS Renita Mijares, DO [address] [facility] [place] [address] Referral ID Status Reason Start Date Expiration Date V isits Requested Visits Authorized [id number] Authorized 07/26/2023 07/25/2024 1 1 Additional Source Comments INFORMATION SOURCE (unrecogn ized section and content) DATE CREATED AUTHOR 05/09/2019 [facility] DATE CREATED AUTHOR AUTHOR'S ORGANIZ ATION 05/09/2019 [facility] DATE CREATED AUTHOR AUTHOR'S ORGANIZ ATION 02/13/[address] [facility] DATE CREATED AUTHOR AUTHOR'S ORGANIZ ATION 05/27/2021 [facility] DATE CREATED AUTHOR AUTHOR'S ORGANIZ ATION 06/26/2022 [facility] DATE CREATED AUTHOR AUTHOR'S ORGANIZ ATION 03/07/2023 [facility] DATE CREATED AUTHOR AUTHOR'S ORGANIZ ATION 09/08/2023 [facility] DATE CREATED AUTHOR AUTHOR'S ORGANIZ ATION 11/07/2023 [facility] DATE CREATED AUTHOR AUTHOR'S ORGANIZ ATION 03/14/2025 [facility] Source Comments (unrecognize d section and content) In the event this informatio n is protected by the Federal Confidentiality of Alcohol and Drug Abuse Patient Records regulations: The Federal rules restrict any use of the information to criminally investigate or prosecute any alcohol or drug abuse patient.[facility] the event this information is protected by the Federal Confidentiality of Alcohol and Drug Abuse Patient Records regulations: The Federal rules restrict any use of the information to criminally investigate or prosecute any alcohol or drug abuse patient.[facility] Center[facility] the event this information is protected by the Federal Confidentiality of Alcohol and Drug Abuse Patient Records regulations: The Federal rules restrict any use of the information to criminally investigate or prosecute any alcohol or drug abuse patient.[facility] Center[facility] the event this information is protected by the Federal Confidentiality of Alcohol and Drug Abuse Patient Records regulations: The Federal rules restrict any use of the information to criminally investigate or prosecute any alcohol or drug abuse patient.[facility] Center[facility] the event this information is protected by the Federal Confidentiality of Alcohol and Drug Abuse Patient Records regulations: The Federal rules restrict any use of the information to criminally investigate or prosecute any alcohol or drug abuse patient.[facility] Reason for Visit (unrecogniz ed section and content) Reason Onset Date Comments Yearly Exam With Mammogram 02/07/2015 Reason Comments New Reason Onset Date Comments Question 06/23/2022 Reason Comments Radio Gen RMP Specialty Diagnoses / Procedures Referred By Contac t Referred To Contact XR IMAGING Diagnoses Pain Procedures XR FOOT GENERAL 3V AP/LAT/OBL LEFT RADEX FOOT COMPLETE MINIMUM 3 VIEWS Nicolás [place] [address] [place] [address] [place] [address] Referral ID Status Reason Start Date Expiration Date V isits Requested Visits Authorized [id number] Closed Auto-Generate d Referral 05/04/2022 06/03/2023 1 1 Specialty Diagnoses / Procedures Referred By Contac t Referred To Contact Diagnoses Diarrhea, unspecified Procedures DE COLONOSCOPY FLX DX W/COLLJ SPEC WHEN PFRMD DE COLONOSCOPY W/BIOPSY SINGLE/MULTIPLE DE COLSC FLX W/RMVL OF TUMOR POLYP LESION SNARE TQ DE COLSC FLX W/REMOVAL LESION BY HOT BX FORCEPS [id number] [address] [place] [address] [phone] Referral ID Status Reason Start Date Expiration Date Visits Re quested Visits Authorized [id number] 1 1 Reason Onset Date Comments Referral [...] Care Teams (unrecognized sec tion and content) Roofing Foreman Relationship Specialty Start Date End Date Rica Padgett DO [address] [place], [place] [address] PCP - General Family Medicine 04/09/19 Roofing Foreman Relationship Specialty Start Date End Date Rica Padgett DO [address] [place], [place] [id number] PCP - General Family Medicine 04/09/19 Team [...] MD Attending Provider, Referrin g Provider Active Roofing Foreman Relationship Specialty Start Date End Date Rica Padgett DO [address] [place] [address] PCP - General Family Medicine 04/09/19 Roofing Foreman Relationship Specialty Start Date End Date AmishRica montero DO [address] [place] [address] PCP - General Family Medicine 04/09/19 Roofing Foreman Relationship Specialty Start Date End Date Rica Padgett DO [address] [place] [address] PCP - General Family Medicine 09/06/23 Roofing Foreman Relationship Specialty Start Date End Date Rica Padgett DO [address] [place] [address] PCP - General Family Medicine 09/06/23 Roofing Foreman Relationship Specialty Start Date End Date Erin Saunders [address] [place] [address] PCP - General [facility] 10/01/22 Roofing Foreman Relationship Specialty Start Date End Date Erin Saunders [address] [place] [address] PCP - General Family [facility] 10/01/22 FOR RECORDS PERTAINING TO PATIENTS [...] BE BASED ON THE PRIMARY CLINICAL RECORDS. [facility] [employer] [facility]. provides no warranty or guarantee of the accuracy or completeness of information in this document.
--- OUTSIDE RECORDS SUMMARY | 2025-03-15 22:11 | XMS RPT_ITS | CCD ---
Author Organization [facility] CliniSys[facility] Care Team Providers Care Corrections Caseworker Name Role Phone Paw Paw Azra ELLIS Unavailable PB DRUMMOND DR Admitting Unavailable PB DRUMMOND DR Attending Unavailable PB DRUMMOND DR Primary Care Unavailable Shonda York Primary Care Provider Rica Padgett DO Primary Care Provider Rica Padgett Unavailable Jesus Amezquita Unavailable Silvana Henderson Unavailable Unavailable Dr. Rica Padgett Primary Care Provider Dr. Roscoe Helton Attending Provider [phone] Dr. Pj Mahoney Referring Provider [phone] Rica Padgett DO Primary Care Provider [phone] NICOLÁS AGGARWAL Referring Unavailable RICA PADGETT Primary Care Unavailable NICOLÁS AGGARWAL Attending Unavailable RICA PADGETT Primary Care Unavailable Dr. Rica Padgett Primary Care Provider Dr. Rica Padgett Referring Provider SAGE Ruiz Attending Provider Dr. Rica Padgett Primary Care Provider Dr. Rica Padgett Referring Provider SAGE Ruiz Attending Provider [phone] Marie Dee Emergency Provider Dr. Adebayo Mckeon Admit Provider Dr. Adebayo Mckeon Attending Provider Dr. Adebayo Mckeon Other Provider Dr. Tre Anderson Attending Provider Dr. Tre Anderson Other Provider Dr. Matt Oglesby Attending Provider Malys DO, Rica A Primary Care Provider [phone] AMISHYS , DR RICA Alonso Primary Care Physician PJ MAHONEY Attending Unavailable MALYS DO, DR RICA Alonso Primary Care Unavailable PJ MAHONEY Attending Unavailable MALYS DO, DR RICA Alonso Primary Care Unavailable PJ MAHONEY Attending Unavailable AMISHYS DO, DR RICA Alonso Primary Care Unavailable PJ MAHONEY Admitting Unavailable EDGAR GONZALEZ, MATTHEW Allan Consulting Unavailable PJ MAHONEY Referring Unavailable ERIC CHEF DE FROID-PANCAKE PROFESSIONAL, RICA Vargas Consulting Unavaila ble Malys DO, [...] gabapentin Drug Allergy 5 Mental Status Change [facility] Work Phone: Niacin (1 source) Niacin Drug Allergy 7 Rash, Hives, Itching [facility] (2 sources) gabapentin Drug Allergy 6 hives, light headed [facility] (1 source) gabapentin Drug Allergy Hives/Urticaria [facility] (8 sources) Cephalexin Drug Allergy 2 Other [facility] (16 sources) Niacin; Translations: [NIACIN] Drug Allergy 7 Rash, Hives, Itching [facility] (5 sources) gabapentin; Translations: [GABAPENTIN] Drug Allergy 5 Mental Status Change [facility] Work Phone: (2 sources) metFORMIN Drug Allergy 3 Diarrhea [facility] (3 sources) venlafaxine; Translations: [VENLAFAXINE] Drug Allergy 4 [facility] (2 sources) Niacin Drug Allergy 3 [facility] (1 source) Cephalexin Drug Allergy 5 [facility] (1 source) metFORMIN Drug Allergy 5 [facility] (1 source) Niacin Drug Allergy 5 [facility] (1 source) venlafaxine Drug Allergy 5 [facility] Repository Medications Current Medications Medication Drug Class(es) [...] 1 tab po q6h as needed HYDROCODONE-ACETAMINOPHEN [id number] Rica Padgett, acetaminophen 325 mg / oxyCODONE [...] affected area daily as needed DICLOFENAC SODIUM [id number] Rica Padgett, Diclofenac Sodiu m (Voltaren) 1 [...] MG TABS 1 po daily HYDROXYZINE HCL [id number] Rica Padgett DO Start: 08-30-2013 take 100 [...] 20 MG TABS 1 po daily RIVAROXABAN [id number] Adebayo Saunders DO take 2 tablets by [facility] once daily rivaroxaban (XARELTO) 10 mg [...] Drug Class(es) Dates Sig (Normalized) Sig (Original) [id number] actuat albuterol 0.09 mg/actuat metered dose [...] Comment on above: Take 1 tablet by [facility] twice daily. calcium chloride 0.0014 meq/ml [...] on above: Take by mouth. estrogens, conjugated (nursing home) 0.625 mg/ml vaginal cream (8 sources) Estrogen [...] MG TABS 1 po daily LISINOPRIL-HYDROCHLOROTH IAZIDE [id number] Rica Padgett DO Start: 12-06-2014 End: 09-17-2022 [...] Interpretation Reference Range Facility MR/BMSNikhilBPon 03-11-2025 MR/BMSNikhilBP [address], [address] [place] [address] OFFICE VISIT Date of Service: 03/11/25 MR#: [id number] Acct: [id number] Name: FLEX WOOTEN Rep #: [id number] : 1960 Provider: Dr. Pj Anglin se, DO Age/Sex: 64/F Location: [facility] [place].BP Status: Signed Intake [...] you fallen in the past year?: Yes [facility] Medical History Diabetes mellitus with hyperglycemia HTN [...] disease Osteoarthrit (more content not included)... Normal [facility] Extremity Lower without Cont raon 02-09-2025 Extremity Lower without Contra [facility] Imaging Services [address] [place] [address] Extremity Lower without Contra MR#: [id number] Acct: [id number] Name: FLEX WOOTEN Rep #: [id number] : 1960 F 64 From: Bud Sadler DO PCP: Dr. Rica Padgett DO Status: REG CLI Study: Extremity Lower without Contra Date of Exam: 0 02/09/25 Exam# [id number] Ordering Dr: Rafi Berry DPJuliet PROCEDURE: EXTREMITY [...] maintained alignment and in position [facility] CC: DPJuliet Berry; Dr. Rica Padgett DO Alarm Installer: Signed Normal [facility] CBC W/Diff, Automatedon 06 Absolute Lymph 2.35 X10 3/uL Normal 0.83-4.51 [facility] Comment on above: Performed By: #### L 501.080 #### [facility] [address] [place], [address] Absolute Neut 6.7 X10 3/uL Normal 2.0-7.7 [facility] Comment on above: Performed By: #### L 501.080 #### [facility] [address] [place], [address] Basophils/100 WBC (Bld) 0.6 % Normal 0-1 [facility] Comment on above: Performed By: #### L 501.080 #### [facility] [address] [place], [address] Eosinophils/100 WBC (Bld) 1.0 % Normal 0-5 [facility] Comment on above: Performed By: #### L 501.080 #### [facility] [address] [place], [address] Erythrocyte distribution width (RBC) [Ratio] 13.2 % Normal 11.6-14.6 [facility] Comment on above: Performed By: #### L 501.080 #### [facility] [address] [place], [address] Hematocrit (Bld) [Volume fraction] 43.4 % Normal 37-47 [facility] Comment on above: Performed By: #### L 501.080 #### [facility] [address] [place], [address] Hemoglobin (Bld) [Mass/Vol] 14.5 g/dL Normal 12.0-15.0 [facility] Comment on above: Performed By: #### L 501.080 #### [facility] [address] [place], [address] IG% 0.500 Normal 0.0-0.9 [facility] Comment on above: Result Comment: IG% - Immature Granulocytes (promyelocytes, myelocytes and metamyelocytes) > 1% indicates that a LEFT SHIFT is Present. Performed By: #### L 501.080 #### [facility] [address] [facility] [place], [address] Lymphocytes/100 WBC (Bld) 24.2 % Normal 19-41 [facility] Comment on above: Performed By: #### L 501.080 #### [facility] [address] [place], [address] MCH (RBC) [Entitic mass] 29.4 pg Normal 27.0-32.0 [facility] Comment on above: Performed By: #### L 501.080 #### [facility] [address] [place], [address] MCHC (RBC) [Mass/Vol] 33.4 g/dL Normal 32-36 [facility] Comment on above: Performed By: #### L 501.080 #### [facility] [address] [place], [address] MCV (RBC) [Entitic vol] 87.9 fL Normal 81-99 [facility] Comment on above: Performed By: #### L 501.080 #### [facility] [address] [place], [address] Monocytes/100 WBC (Bld) 5.1 % Normal 0-10 [facility] Comment on above: Performed By: #### L 501.080 #### [facility] [address] [place], [address] Neutrophils/100 WBC (Bld) 68.6 % Normal 47-70 [facility] Comment on above: Performed By: #### L 501.080 #### [facility] [address] [place], [address] Nucleated RBC (Bld) [#/Vol] 0 10*3/uL Normal 0-5 [facility] Comment on above: Performed By: #### L 501.080 #### [facility] [address] [place], [address] Platelet mean volume (Bld) [Entitic vol] 9.6 fL Normal 6.2-12.0 [facility] Comment on above: Performed By: #### L 501.080 #### [facility] [address] [place], [address] Platelets (Bld) [#/Vol] 251 10*3/uL Normal 150-450 [facility] Comment on above: Performed By: #### L 501.080 #### [facility] [address] [place], [address] RBC (Bld) [#/Vol] 4.94 10*6/uL Normal 4.2-5.4 [facility] Comment on above: Performed By: #### L 501.080 #### [facility] [address] [place], [address] RDW SD 41.8 fl Normal 35.1-43.9 [facility] Comment on above: Performed By: #### L 501.080 #### [facility] [address] [place], [address] WBC (Bld) [#/Vol] 9.7 10*3/uL Normal 4.4-11.0 [facility] Comment on above: Performed By: #### L 501.080 #### [facility] [address] [place], [address] CRPon 02-04-2025 C-REACTIVE PROT 11.80 mg/L High 0.0-3.0 [facility] Comment on above: Performed By: #### L 100.0100, L501.1400, L101.9900, L501.6710, L501.59330, L501.5200, L506.0400, L500.4050, L501.9520, L501.2450 ####[facility] [address] [place], [address] Comprehensive Metabolic Prof ilon 02-04-2025 Albumin [Mass/Vol] 4.3 g/dL Normal 3.4-4.8 [facility] Comment on above: Performed By: #### L 501.080 #### [facility] [address] [place], [address] Albumin/Globulin [Mass ratio] 1.4 {ratio} Normal 0.9-2.4 [facility] Comment on above: Performed By: #### L 501.080 #### [facility] [address] [place], [address] ALK PHOS 112 U/L High 35-104 [facility] Comment on above: Performed By: #### L 501.080 #### [facility] [address] [place], [address] ALT [Catalytic activity/Vol] 80 U/L High <=34 [facility] Comment on above: Performed By: #### L 501.080 #### [facility] [address] [place], [address] AST [Catalytic activity/Vol] 60 U/L High <=31 [facility] Comment on above: Performed By: #### L 501.080 #### [facility] [address] [place], [address] Bilirubin [Mass/Vol] 0.40 mg/dL Normal 0.00-1.30 [facility] Comment on above: Performed By: #### L 501.080 #### [facility] [address] [place], [address] BUN/CRE 13.8 RATIO Normal 10-20 [facility] Comment on above: Performed By: #### L 501.080 #### [facility] [address] [place], [address] Calcium [Mass/Vol] 9.5 mg/dL Normal 7.6-11.0 [facility] Comment on above: Performed By: #### L 501.080 #### [facility] [address] [place], [address] Chloride [Moles/Vol] 101 mmol/L Normal 98-108 [facility] Comment on above: Performed By: #### L 501.080 #### [facility] [address] [place], [address] CO2 [Moles/Vol] 24.5 mmol/L Normal 21.0-32.0 [facility] Comment on above: Performed By: #### L 501.080 #### [facility] [address] [place], [address] Creatinine [Mass/Vol] 0.78 mg/dL Normal 0.70-1.20 [facility] Comment on above: Performed By: #### L 501.080 #### [facility] [address] [place], [address] GAP 16 High 5-15 [facility] Comment on above: Performed By: #### L 501.080 #### [facility] [address] [place], [address] GFR/1.73 sq M.predicted among non-blacks MDRD (S/P/Bld) [Vol rate/Area] 84 mL/min/{1.73_m2} Normal >60 [facility] Comment on above: Result Comment: mL/m in/1.73m2 CKD-EPI Creatinine Equation (2020) Performed By: #### L 501.080 #### [facility] [address] [place], [address] Globulin (S) [Mass/Vol] 3.1 g/dL Normal 2.2-4.2 [facility] Comment on above: Performed By: #### L 501.080 #### [facility] [address] [place], [address] Glucose [Mass/Vol] 247 mg/dL High 70-99 [facility] Comment on above: Performed By: #### L 501.080 #### [facility] [address] [place], [address] Potassium [Moles/Vol] 4.6 mmol/L Normal 3.3-5.1 [facility] Comment on above: Performed By: #### L 501.080 #### [facility] [address] [place], [address] Sodium [Moles/Vol] 141 mmol/L Normal 133-145 [facility] Comment on above: Performed By: #### L 501.080 #### [facility] [address] [place], [address] T PROT 7.4 g/dL Normal 5.9-8.4 [facility] Comment on above: Performed By: #### L 501.080 #### [facility] [address] [place], [place], [address] Urea nitrogen [Mass/Vol] 11 mg/dL Normal 4-19 [facility] Comment on above: Performed By: #### L 501.080 #### [facility] [address] [place], [place], [address] Erythrocyte Sed Rateon 02-04 SED RATE 7 mm/hr Normal 0-30 [facility] Comment on above: Performed By: #### L 501.080 #### [facility] [address] [place], [address] Free T3on 02-04-2025 Free T3 [Mass/Vol] 2.4 pg/mL Normal 2.18-3.98 [facility] Comment on above: Performed By: #### L 100.0100, L501.1400, L101.9900, L501.6710, L501.02516, L501.5200, L506.0400, L500.4050, L501.9520, L501.2450 ####[facility] [address] [place], [place], [id number] Lipaseon 02-04-2025 Lipase [Catalytic activity/Vol] 42 U/L Normal 13-75 [facility] Comment on above: Result Comment: Sherri martinez note: LIPASE revised reference range effective 22. New Lipase methodology. Expected to produce lower values than the previous assay method. NEW Reference Range: 13 - 75 U/L Performed By: #### L 501.080 #### [facility] [address] [place], [address] Magnesiumon 02-04-2025 Magnesium [Mass/Vol] 1.8 mg/dL Normal 1.5-2.2 [facility] Comment on above: Performed By: #### L 100.0100, L501.1400, L101.9900, L501.6710, L501.85720, L501.5200, L506.0400, L500.4050, L501.9520, L501.2450 ####[facility] [address] [place], [place], [id number] T4 Free Directon 02-04-2025 T4 FREE DIRECT 1.20 ng/dL Normal 0.76-1.46 [facility] Comment on above: Performed By: #### L 100.0100, L501.1400, L101.9900, L501.6710, L501.97269, L501.5200, L506.0400, L500.4050, L501.9520, L501.2450 ####[facility] [address] [place], [address] Thyroid Stim Hormone (TSH)on 02-04-2025 TSH 0.755 uIU/mL Normal 0.300-4.200 [facility] Comment on above: Performed By: #### L 100.0100, L501.1400, L101.9900, L501.6710, L501.87527, L501.5200, L506.0400, L500.4050, L501.9520, L501.2450 ####[facility] [address] [place], [place], [id number] Uric Acidon 02-04-2025 URIC 6.8 mg/dL High 2.6-6.0 [facility] Comment on above: Result Comment: The drugs N-Acetylcysteine and Metamizole may falsely depress this assay. Performed By: #### L 501.080 #### [facility] [address] [place], [address] MR/BMS.BPon 01-07-2025 MR/BMS.BP [address], [address] [place] [address] OFFICE VISIT Date of Service: 01/07/25 MR#: [id number] Acct: [id number] Name: FLEX WOOTEN Rep #: [id number] : 1960 Provider: Dr. Pj Anglin se, DO Age/Sex: 64/F Location: [facility] [place].BP Status: Signed Intake [...] thrombosis) History (more content not included)... Normal [facility] Basic Metabolic Profile (BMP )on 01-03-2025 BUN/CRE 18.4 RATIO Normal 10-20 [facility] Comment on above: Performed By: #### L 500.2500, L506.1001 #### [facility] [address] [place], [address] Calcium [Mass/Vol] 8.7 mg/dL Normal 7.6-11.0 [facility] Comment on above: Performed By: #### L 500.2500, L506.1001 #### [facility] [address] [place], [address] Chloride [Moles/Vol] 100 mmol/L Normal 98-108 [facility] Comment on above: Performed By: #### L 500.2500, L506.1001 #### [facility] [address] [place], [address] CO2 [Moles/Vol] 25.8 mmol/L Normal 21.0-32.0 [facility] Comment on above: Performed By: #### L 500.2500, L506.1001 #### [facility] [address] [place], [address] Creatinine [Mass/Vol] 0.71 mg/dL Normal 0.70-1.20 [facility] Comment on above: Performed By: #### L 500.2500, L506.1001 #### [facility] [address] [place], [address] GAP 12 Normal 5-15 [facility] Comment on above: Performed By: #### L 500.2500, L506.1001 #### [facility] [address] [place], [address] GFR/1.73 sq M.predicted among non-blacks MDRD (S/P/Bld) [Vol rate/Area] 94 mL/min/{1.73_m2} Normal >60 [facility] Comment on above: Result Comment: mL/m in/1.73m2 CKD-EPI Creatinine Equation (2020) Performed By: #### L 500.2500, L506.1001 #### [facility] [address] [place], [address] Glucose [Mass/Vol] 293 mg/dL High 70-99 [facility] Comment on above: Performed By: #### L 500.2500, L506.1001 #### [facility] [address] [place], [address] Potassium [Moles/Vol] 4.8 mmol/L Normal 3.3-5.1 [facility] Comment on above: Performed By: #### L 500.2500, L506.1001 #### [facility] [address] [place], [address] Sodium [Moles/Vol] 138 mmol/L Normal 133-145 [facility] Comment on above: Performed By: #### L 500.2500, L506.1001 #### [facility] [address] [place], [address] Urea nitrogen [Mass/Vol] 13 mg/dL Normal 4-19 [facility] Comment on above: Performed By: #### L 500.2500, L506.1001 #### [facility] [address] [place], [address] Vitamin D,25 Hydroxyon 01-03 Vitamin D 25-OH 32.3 ng/mL Normal 30-100 [facility] Comment on above: Result Comment: Ashley min D Status Deficiency: <20 ng/mL (50nmol/L) Insufficiency: 20-30 ng/mL (50-75 nmol/L) Sufficiency: 30-100 ng/mL (75-250 nmol/L) Toxicity: >100 ng/mL (>250 nmol/L) Performed By: #### L 500.2500, L5061003 #### [facility] [address] [place], [address] Echo Complete W/ Contraston 11-29-2024 Echo Complete W/ Contrast [facility] [address] [place] [address] Echo Complete W/ Contrast 11/29/24 1411 MR#: [id number] Acct: [id number] Name: FLEX WOOTEN Rep #: [id number] : 1960 64 From: Matt Oglesby MD Attending Dr: Dr. Deuce Shaw MD Status: REG CLI Ordering Dr: Deuce Shaw MD Date: 11/29/24 Location: [facility] Sex: F C Admitted: Reason [...] max lily: 101.6 cm/sec Lat Peak E' Liyl: 18.3 cm/sec Med Peak E' Lily: 9.9 [...] Date Dictated: 11/29/24 1411 Date Transcribed: 11/29/241656 Alarm Installer: Signed Normal [facility] Brain/Head without Contrasto n 11-20-2024 Brain/Head without Contrast [facility] Imaging Services [address] [place] [address] Brain/Head without Contrast MR#: [id number] Acct: [id number] Name: FLEX WOOTEN Rep #: [id number] : 1960 F 64 From: Deuce Thompson MD PCP: Dr. Rica Padgett DO Status: PRE ER Study: Brain/Head without Contrast Date of Exam: 10/28 01/20 Exam# [id number] Ordering Dr: Tre Flores DO EXAM: Noncontrast [...] mass effect or calvarial fracture. Reading Location: [facility] CC: Dr. Tre Flores DO; Dr. Rica Padgett DO Alarm Installer: Signed Normal [facility] Emergency Department Summary on 11-20-2024 Emergency Department Summary [facility] Medical Records Department [address] [place] [address] Emergency Department Summary 11/20/24 MR#: [id number] Acct: [id number] Name: FLEX WOOTEN Rep #: [id number] : 1960 64 From: Tre Flores DO [...] or weakness. Patient denies any other injuries. [facility] Medical History Diabetes mellitus with [...] kit insulin (more content not included)... Normal [facility] Lumbar Spine 2 or 3 Viewson 11-20-2024 Lumbar Spine 2 or 3 Views [facility] Imaging Services [address] [place], [place] [address] Lumbar Spine 2 or 3 Views MR#: [id number] Acct: [id number] Name: FLEX WOOTEN Rep #: [id number] : 1960 F 64 From: Deuce Tohmpson MD PCP: Dr. Rica Padgett, Status: PRE ER Study: Lumbar Spine 2 or 3 Views Date of Exam: Exam# [id number] Ordering Dr: Tre Flores DO EXAM: Lumbar spine 2 or three views x-ray CLINICAL HISTORY: Injury, pain COMPARISON: 05/14/[address] 07/28/2024 TECHNIQUE: Three views lumbosacral spine, AP, lateral and coned-down view FINDINGS: 5 zec-ihi-atufaoj lumbar vertebral type bodies again identified. No [...] and spondylosis/discogenic change as above. Reading Location: [facility] CC: Dr. Tre Flores DO; Dr. Rica Padgett DO Alarm Installer: Signed Normal [facility] Spine Cervical without Contr ason 11-20-2024 Spine Cervical without Contras [facility] Imaging Services [address] [place], [place] [address] Spine Cervical without Contras MR#: [id number] Acct: [id number] Name: FLEX WOOTEN Rep #: [id number] : 1960 F 64 From: Deuce Thompson MD PCP: Dr. Rica Padgett DO Status: PRE ER Study: Spine Cervical without Contras Date of Exam: 0 11/20/24 Exam# [id number] Ordering Dr: Tre Flores DO EXAM: Cervical [...] IMPRESSION: No fracture or malalignment. Reading Location: [facility] CC: Dr. Tre Flores DO; Dr. Rica Padgett DO Alarm Installer: Signed Normal [facility] Thoracic Spine 3 Viewson Thoracic Spine 3 Views [facility] Imaging Services [address] [place] [address] Thoracic Spine 3 Views MR#: [id number] Acct: [id number] Name: FLEX WOOTEN Rep #: [id number] : 1960 F 64 From: Deuce Thompson MD PCP: Dr. Rica Padgett DO Status: PRE ER Study: Thoracic Spine 3 Views Date of Exam: 11/20/24 Exam# [id number] Ordering Dr: Tre Flores DO EXAM: Thoracic spine x-ray CLINICAL HISTORY: Injury, pain COMPARISON: 09/17/2019 TECHNIQUE: AP and lateral views of the thoracic spine FINDINGS: No fracture or malalignment identified. The disc spaces appear within limits. Spondylosis and DISH. RAD/Thoracic Spine 3 Views IMPRESSION: No fracture or malalignment identified. Reading Location: [facility] CC: Dr. Tre Flores DO; Dr. Rica Padgett DO Alarm Installer: Signed Normal [facility] Endocrinology Visit Reporton 11-19-2024 Endocrinology Visit Report [facility] [address] [facility] [place] [address] OFFICE VISIT Date of Service: 11/19/24 MR#: [id number] Acct: [id number] Name: FLEX WOOTEN Rep #: [id number] : 1960 Provider: SAGE hernandez Age/Sex: 64/F Location: [facility] [place] Status: Signed Intake Vital Signs 10/08/24 [...] present Mixe (more content not included)... Normal [facility] Emergency Department Summary on 10-15-2024 Emergency Department Summary [facility] Medical Records Department [address] [place] [address] Emergency Department Summary 10/15/24 MR#: [id number] Acct: [id number] Name: FLEX WOOTEN Rep #: [id number] : 1960 64 From: Della COX PCP: [...] chills, neck pain, paresthesias, and head injury. [facility] Medical History Diabetes mellitus with [...] 10/21/23 Unknown (more content not included)... Normal [facility] Emergency Department Summary on 10-12-2024 Emergency Department Summary [facility] Medical Records Department [address] [place] [address] Emergency Department Summary 10/12/24 MR#: [id number] Acct: [id number] Name: FLEX WOOTEN Rep #: [id number] : 1960 64 From: Uday Stokes MD [...] similar symptoms: Yes Recent Illness/Hospitalization : [facility] Medical History Diabetes mellitus with hyperglycemia HTN [...] Unknown Rx (more content not included)... Normal [facility] Endocrinology Visit Reporton 10-08-2024 Endocrinology Visit Report [facility] [address] [place] [id number] OFFICE VISIT Date of Service: 10/08/24 MR#: [id number] Acct: [id number] Name: FLEX WOOTEN Rep #: [id number] : 1960 Provider: SAGE hernandez Age/Sex: 64/F Location: [facility] [place] Status: Signed Intake Vital Signs 06/06/24 [...] calcifications M (more content not included)... Normal [facility] MR/BMS.BPon 09-03-2024 MR/BMS.BP [facility] [address], [address] [place] [address] OFFICE VISIT Date of Service: 09/03/24 MR#: [id number] Acct: [id number] Name: FLEX WOOTEN Rep #: [id number] : 1960 Provider: Dr. Pj Anglin se, DO Age/Sex: 64/F Location: [facility] [place] Status: Signed Intake [...] balancing Fa (more content not included)... Normal [facility] Bedside Glucoseon 07-28-2024 FINGERSTICK GLU 200 mg/dL High [address] [facility] Comment on above: Result Comment: MARCELLA GEMENT OF PATIENT CARE PER NURSING PROTOCOL Performed By: #### L 506.1000, L503.0105, L503.6150, L100.0100, L506.0400, L500.4050, L503.6550, L501.9520 #### [facility] [address] [place], [address] FINGERSTICK GLU 202 mg/dL High [address] [facility] Comment on above: Result Comment: MARCELLA GEMENT OF PATIENT CARE PER NURSING PROTOCOL Performed By: #### L 501.080 #### [facility] [address] [place], [address] FINGERSTICK GLU 233 mg/dL High [facility]106 [facility] Comment on above: Result Comment: MARCELLA GEMENT OF PATIENT CARE PER NURSING PROTOCOL Performed By: #### L 500.2500, L506.1001 #### [facility] [address] [place], [address] Spine Lumbar without Contras ton 07-28-2024 Spine Lumbar without Contrast [facility] Imaging Services [address] [place] [address] Spine Lumbar without Contrast MR#: [id number] Acct: [id number] Name: FLEX WOOTEN Rep #: [id number] : 1960 F 64 From: Dru Stanford MD PCP: Dr. Rica Padgett DO Status: ADM LATRICIA Study: Spine Lumbar without Contrast Date of Exam: Exam# [id number] Ordering Dr: [place] [id number] EXAM: CT LUMBAR SPINE WITHOUT INTRAVENOUS CONTRAST [...] 11:46 EST Reading Location ID and State: [facility] / [place] Tel , Service support , CC: Dr. Tre Anderson DO; Dr. Rica Padgett DO Alarm Installer: Signed Normal [facility] 12 Lead EKGon 07-27-2024 12 Lead EKG [facility] Cardiovascular Services [address] [place] [address] 12 Lead EKG 07/27/24 1649 MR#: [id number] Acct: [id number] Name: FLEX WOOTEN Rep #: [id number] : 1960 64 From: Wilbert Ba MD Attending Dr: Dr. Tre Anderson DO Status: DIS LATRICIA Ordering Dr: Rica Pardo Date: 07/27/24 Location: [facility] Sex: F C Admitted: 07/27/24 Test Reason [...] undetermined Abnormal ECG Confirmed by Wilbert Ba ([id number]), dictionary editor GLADIS JENKINS ([id number]) on 07/30/2024 11:30:25 AM Referred By: Confirmed By: Wilbert Ba 07/30/24 1130 Date Wilbert Ba MD CC: Dr. Tre Anderson DO; Dr. Rica Padgett DO; KENNY Hinkle Signed Normal [facility] Basic Metabolic Profile (BMP )on 07-27-2024 BUN/CRE 14.0 RATIO Normal 06-17 [facility] Comment on above: Performed By: #### L 500.2500, L506.1001 #### [facility] [address] [place], [address] CA,Total 8.9 mg/dL Normal 8.5-10.1 [facility] Comment on above: Performed By: #### L 500.2500, L506.1001 #### [facility] [address] [place], [address] Chloride [Moles/Vol] 99 mmol/L Normal 98-107 [facility] Comment on above: Performed By: #### L 500.2500, L506.1001 #### [facility] [address] [place], [address] CO2 [Moles/Vol] 30.0 mmol/L Normal 21.0-32.0 [facility] Comment on above: Performed By: #### L 500.2500, L506.1001 #### [facility] [address] [place], [address] Creatinine [Mass/Vol] 1.00 mg/dL Normal 0.55-1.02 [facility] Comment on above: Result Comment: The validity of the calculated GFR GFRAA in patients over 70 years has not been determined. Clinical correlation is essential. Performed By: #### L 500.2500, L506.1001 #### [facility] [address] [place], [address] ECRCL 69.70 ml/min Normal [facility] Comment on above: Performed By: #### L 500.2500, L506.1001 #### [facility] [address] [place], [address] EST GFR - AA 71 mL/min Normal >60 [facility] Comment on above: Result Comment: Afri can Sudanese GFR Calc Performed By: #### L 500.2500, L506.1001 #### [facility] [address] [place], [address] GAP 7 Normal 5-15 [facility] Comment on above: Performed By: #### L 500.2500, L506.1001 #### [facility] [address] [place], [address] GFR/1.73 sq M.predicted among non-blacks MDRD (S/P/Bld) [Vol rate/Area] 59 mL/min/{1.73_m2} Low >60 [facility] Comment on above: Result Comment: Non- GFR Calc Performed By: #### L 500.2500, L506.1001 #### [facility] [address] [place], [address] Glucose [Mass/Vol] 421 mg/dL High 74-106 [facility] Comment on above: Result Comment: Gluc ose result greater than or equal to 200 mg/dL suggests DIABETES MELLITUS per A.D.A. criteria. Performed By: #### L 500.2500, L506.1001 #### [facility] [address] [place], [address] Potassium [Moles/Vol] 4.6 mmol/L Normal 3.5-5.1 [facility] Comment on above: Result Comment: Slig ht Hemolysis, Result may be falsely increased. Performed By: #### L 500.2500, L506.1001 #### [facility] [address] [place], [address] Sodium [Moles/Vol] 135 mmol/L Low 136-145 [facility] Comment on above: Performed By: #### L 500.2500, L506.1001 #### [facility] [address] [place], [address] Urea nitrogen [Mass/Vol] 14 mg/dL Normal 7-18 [facility] Comment on above: Performed By: #### L 500.2500, L506.1001 #### [facility] [address] [place], [address] Bedside Glucoseon 07-27-2024 FINGERSTICK GLU 290 mg/dL High 74-106 [facility] Comment on above: Result Comment: MARCELLA AGUILAR OF PATIENT CARE PER NURSING PROTOCOL Performed By: #### L 500.2500, L506.1001 #### [facility] [address] [place], [address] FINGERSTICK GLU 360 mg/dL High 74-106 [facility] Comment on above: Result Comment: MARCELLA AGUILAR OF PATIENT CARE PER NURSING PROTOCOL Performed By: #### L 500.2500, L506.1001 #### [facility] [address] [place], [address] CBC W/Diff, Automatedon 11-2 -2023 Absolute Lymph 2.09 X10 3/uL Normal 0.83-4.51 [facility] Comment on above: Performed By: #### L 500.2500, L506.1001 #### [facility] [address] [place], [address] Absolute Neut 4.9 X10 3/uL Normal 2.0-7.7 [facility] Comment on above: Performed By: #### L 500.2500, L506.1001 #### [facility] [address] [place], [address] Basophils/100 WBC (Bld) 0.4 % Normal 0-1 [facility] Comment on above: Performed By: #### L 500.2500, L506.1001 #### [facility] [address] [place], [address] Eosinophils/100 WBC (Bld) 1.8 % Normal 0-5 [facility] Comment on above: Performed By: #### L 500.2500, L506.1001 #### [facility] [address] [place], [address] Erythrocyte distribution width (RBC) [Ratio] 13.5 % Normal 11.6-14.6 [facility] Comment on above: Performed By: #### L 500.2500, L506.1001 #### [facility] [address] [place], [address] Hematocrit (Bld) [Volume fraction] 44.6 % Normal 37-47 [facility] Comment on above: Performed By: #### L 500.2500, L506.1001 #### [facility] [address] [place], [address] Hemoglobin (Bld) [Mass/Vol] 14.2 g/dL Normal 12.0-15.0 [facility] Comment on above: Performed By: #### L 500.2500, L506.1001 #### [facility] [address] [place], [address] IG% 0.500 Normal 0.0-0.9 [facility] Comment on above: Result Comment: IG% - Immature Granulocytes (promyelocytes, myelocytes and metamyelocytes) > 1% indicates that a LEFT SHIFT is Present. Performed By: #### L 500.2500, L506.1001 #### [facility] [address] [place], [address] Lymphocytes/100 WBC (Bld) 27.5 % Normal 19-41 [facility] Comment on above: Performed By: #### L 500.2500, L506.1001 #### [facility] [address] [place], [address] MCH (RBC) [Entitic mass] 28.9 pg Normal 27.0-32.0 [facility] Comment on above: Performed By: #### L 500.2500, L506.1001 #### [facility] [address] [place], [address] MCHC (RBC) [Mass/Vol] 31.8 g/dL Low 32-36 [facility] Comment on above: Performed By: #### L 500.2500, L506.1001 #### [facility] [address] [place], [address] MCV (RBC) [Entitic vol] 90.7 fL Normal 81-99 [facility] Comment on above: Performed By: #### L 500.2500, L506.1001 #### [facility] [address] [place], [address] Monocytes/100 WBC (Bld) 5.5 % Normal 0-10 [facility] Comment on above: Performed By: #### L 500.2500, L506.1001 #### [facility] [address] [place], [address] Neutrophils/100 WBC (Bld) 64.3 % Normal 47-70 [facility] Comment on above: Performed By: #### L 500.2500, L506.1001 #### [facility] [address] [place], [address] Nucleated RBC (Bld) [#/Vol] 0 10*3/uL Normal 0-5 [facility] Comment on above: Performed By: #### L 500.2500, L506.1001 #### [facility] [address] [place], [address] Platelet mean volume (Bld) [Entitic vol] 9.3 fL Normal 6.2-12.0 [facility] Comment on above: Performed By: #### L 500.2500, L506.1001 #### [facility] [address] [place], [address] Platelets (Bld) [#/Vol] 234 10*3/uL Normal 150-450 [facility] Comment on above: Performed By: #### L 500.2500, L506.1001 #### [facility] [address] [place], [address] RBC (Bld) [#/Vol] 4.92 10*6/uL Normal 4.2-5.4 [facility] Comment on above: Performed By: #### L 500.2500, L506.1001 #### [facility] [address] [place], [address] RDW SD 44.1 fl High 35.1-43.9 [facility] Comment on above: Performed By: #### L 500.2500, L506.1001 #### [facility] [address] [place], [address] WBC (Bld) [#/Vol] 7.6 10*3/uL Normal 4.4-11.0 [facility] Comment on above: Performed By: #### L 500.2500, L506.1001 #### [facility] [address] [place], [address] CTA Chest W/WO Contraston CTA Chest W/WO Contrast [facility] Imaging Services [address] [place] [address] CTA Chest W/WO Contrast MR#: [id number] Acct: [id number] Name: FLEX WOOTEN Rep #: [id number] : 1960 F 64 From: Rafi Bajwa MD PCP: Dr. Rica Padgett, DO Status: [facility] ER Study: CTA Chest W/WO Contrast Date of Exam: 07/27/24 Exam# [id number] Ordering Dr: Rica Pardo [id number] STUDY: CTA CHEST REASON FOR EXAM: Female, [...] 18:45 EST Reading Location ID and State: [address] [place] [address] Tel , Service support , CC: Dr. Rica Padgett DO; KENNY Hinkle Alarm Installer: Signed Normal [facility] Chest PA and Lateralon 07-27 Chest PA and Lateral [facility] Imaging Services [address] [place] [address] Chest PA and Lateral MR#: [id number] Acct: [id number] Name: FLEX WOOTEN Rep #: [id number] : 1960 F 64 From: Rafi Bajwa MD PCP: Dr. Rica Padgett DO Status: REG ER Study: Chest PA and Lateral Date of Exam: 07/27/24 Exam# [id number] Ordering Dr: Rica Pardo [id number] STUDY: X-RAY CHEST REASON FOR EXAM: Female, [...] 17:03 EST Reading Location ID and State: [address] [place] [address] Tel , Service support , CC: Dr. Rica Padgett DO; KENNY Hinkle Alarm Installer: Signed Normal [facility] Emergency Department Summary on 07-27-2024 Emergency Department Summary [facility] Medical Records Department [address] [place] [address] Emergency Department Summary 07/27/24 MR#: [id number] Acct: [id number] Name: FLEX WOOTEN Rep #: [id number] : 1960 64 From: Rica COX PCP: Dr. Rica Padgett DO Status:ADM LATRICIA Location: [address] History of Present Illness Chief Complaint: [...] has no weakness or numbness or tingling. [facility] Medical History (Updated 07/27/24 @ [...] Itching Verified (more content not included)... Normal [facility] H AND P Exam - Hospitaliston 07-27-2024 H&P Exam - Hospitalist [facility] Medical Records Department [address] [place] [address] H P Exam - Hospitalist 07/27/241915 MR#: [id number] Acct: [id number] Name: FLEX WOOTEN Rep #: [id number] : 1960 64 From: David Caruso DO PCP: Dr. Rica Padgett, DO Status:ADM LATRICIA Location: [facility] [id number] HPI - General General Date of Admission: 07/27/24 Date of Service: 07/27/24 Chief Complaint: Fatigue with hypoxia HPI Narrative FLEX WOOTEN, is a 64 F who presented to [facility] ED on 07/27/2024 with 1 week history [...] after discussion with her psychiatrist. [facility] Medical History (Updated 07/27/24 @ 20:24 by [...] pain Gastr (more content not included)... Normal [facility] L501.4020on 07-27-2024 TROPONIN-I HS 5 pg/mL Normal 3.0-54.0 [facility] Comment on above: Order Comment: 'TROP ' Serial specimen #1, #2 or #3: 1 Result Comment: Sherri martinez Note: New Test Units and Gender Specific Reference Ranges. For more information see Policy Stat Procedure [place] High Sensitivity Troponin (TNIH) and attachments. Performed By: #### L 506.1000, L503.0105, L503.6150, L100.0100, L506.0400, L500.4050, L503.6550, L501.9520 #### [facility] [place], [address] Miscellaneous Lab Procedureo n 07-19-2024 [facility] [place] TEST Normal [facility] Comment on above: Order Comment: [id number] [...] UR Oxymorphone Negative 300 TESTING PERFORMED AT [facility]. ORIGINAL REPORT ON FILE IN LAB CONTAINS ADDITIONAL TEST SITE INFORMATION. Performed By: #### L 506.1000, L503.0105, L503.6150, L100.0100, L506.0400, L500.4050, L503.6550, L501.9520 #### [facility] [address] [place], [address] Urinalysis, Routine (Dipstic k)on 07-13-2024 BILIRUBIN URINE Negative Normal Negative [facility] Comment on above: Order Comment: CLEAN CATCH Performed By: #### L 506.1000, L503.0105, L503.6150, L100.0100, L506.0400, L500.4050, L503.6550, L501.9520 #### [facility] [address] [place], [address] Clarity (U) Clear Normal Clear [facility] Comment on above: Order Comment: CLEAN CATCH Performed By: #### L 506.1000, L503.0105, L503.6150, L100.0100, L506.0400, L500.4050, L503.6550, L501.9520 #### [facility] [address] [place], [address] Color (U) Yellow Normal Yellow [facility] Comment on above: Order Comment: CLEAN CATCH Performed By: #### L 506.1000, L503.0105, L503.6150, L100.0100, L506.0400, L500.4050, L503.6550, L501.9520 #### [facility] [address] [place], [address] GLUCOSE, UR Normal Normal Normal [facility] Comment on above: Order Comment: CLEAN CATCH Performed By: #### L 506.1000, L503.0105, L503.6150, L100.0100, L506.0400, L500.4050, L503.6550, L501.9520 #### [facility] [address] [place], [address] KETONE UR Negative Normal Negative [facility] Comment on above: Order Comment: CLEAN CATCH Performed By: #### L 506.1000, L503.0105, L503.6150, L100.0100, L506.0400, L500.4050, L503.6550, L501.9520 #### [facility] [address] [place], [address] LEUK ESTERASE 25 /ul Abnormal Negative [facility] Comment on above: Order Comment: CLEAN CATCH Performed By: #### L 506.1000, L503.0105, L503.6150, L100.0100, L506.0400, L500.4050, L503.6550, L501.9520 #### [facility] [address] [place], [address] Nitrite Ql (U) Negative Normal Negative [facility] Comment on above: Order Comment: CLEAN CATCH Performed By: #### L 506.1000, L503.0105, L503.6150, L100.0100, L506.0400, L500.4050, L503.6550, L501.9520 #### [facility] [address] [place], [address] OCCULT BLOOD-UR Negative Normal Negative [facility] Comment on above: Order Comment: CLEAN CATCH Performed By: #### L 506.1000, L503.0105, L503.6150, L100.0100, L506.0400, L500.4050, L503.6550, L501.9520 #### [facility] [address] [place], [address] pH UR 6.0 Normal 5.0 - 8.0 [facility] Comment on above: Order Comment: CLEAN CATCH Performed By: #### L 506.1000, L503.0105, L503.6150, L100.0100, L506.0400, L500.4050, L503.6550, L501.9520 #### [facility] [address] [place], [address] PROT DIPSTX Negative Normal Negative [facility] Comment on above: Order Comment: CLEAN CATCH Performed By: #### L 506.1000, L503.0105, L503.6150, L100.0100, L506.0400, L500.4050, L503.6550, L501.9520 #### [facility] [address] [place], [address] SP.GR. DIPSTX 1.020 Normal 1.002-1.030 [facility] Comment on above: Order Comment: CLEAN CATCH Performed By: #### L 506.1000, L503.0105, L503.6150, L100.0100, L506.0400, L500.4050, L503.6550, L501.9520 #### [facility] [address] [place], [place], [id number] [phone] UROBILI Normal Normal Normal [facility] Comment on above: Order Comment: CLEAN CATCH Performed By: #### L 506.1000, L503.0105, L503.6150, L100.0100, L506.0400, L500.4050, L503.6550, L501.9520 #### [facility] [address] [place], [address] Urine Drug Screen (VISTA)on 07-13-2024 AMPHETAMINES Negative Normal <1000 ng/mL [facility] Comment on above: Order Comment: MEDTO X Performed By: #### L 506.1000, L503.0105, L503.6150, L100.0100, L506.0400, L500.4050, L503.6550, L501.9520 #### [facility] [address] [place], [place], [id number] ([address] BARBITIURATES Negative Normal < 200 ng/mL [facility] Comment on above: Order Comment: MEDTO X Performed By: #### L 506.1000, L503.0105, L503.6150, L100.0100, L506.0400, L500.4050, L503.6550, L501.9520 #### [facility] [address] [place], [address] BENZODIAZIPINE Negative Normal < 200 ng/mL [facility] Comment on above: Order Comment: MEDTO X Performed By: #### L 506.1000, L503.0105, L503.6150, L100.0100, L506.0400, L500.4050, L503.6550, L501.9520 #### [facility] [address] [place], [address] COCAINE Negative Normal < 300 ng/mL [facility] Comment on above: Order Comment: MEDTO X Performed By: #### L 506.1000, L503.0105, L503.6150, L100.0100, L506.0400, L500.4050, L503.6550, L501.9520 #### [facility] [address] [place], [address] ECSTACY Negative Normal < 500 ng/mL [facility] Comment on above: Order Comment: MEDTO X Performed By: #### L 506.1000, L503.0105, L503.6150, L100.0100, L506.0400, L500.4050, L503.6550, L501.9520 #### [facility] [address] [place], [address] METHADONE Negative Normal < 300 ng/mL [facility] Comment on above: Order Comment: MEDTO X Performed By: #### L 506.1000, L503.0105, L503.6150, L100.0100, L506.0400, L500.4050, L503.6550, L501.9520 #### [facility] [address] [place], [address] OPIATES Positive Abnormal < 300 ng/mL [facility] Comment on above: Order Comment: MEDTO X Performed By: #### L 506.1000, L503.0105, L503.6150, L100.0100, L506.0400, L500.4050, L503.6550, L501.9520 #### [facility] [address] [place], [address] PCP Negative Normal < 25 ng/mL [facility] Comment on above: Order Comment: MEDTO X Performed By: #### L 506.1000, L503.0105, L503.6150, L100.0100, L506.0400, L500.4050, L503.6550, L501.9520 #### [facility] [address] [place], [address] THC Negative Normal < 50 ng/mL [facility] Comment on above: Order Comment: MEDTO X Performed By: #### L 506.1000, L503.0105, L503.6150, L100.0100, L506.0400, L500.4050, L503.6550, L501.9520 #### [facility] [address] [place], [place], [address] VISTA UDS PH 5 Normal [facility] Comment on above: Order Comment: MEDTO X Performed By: #### L 506.1000, L503.0105, L503.6150, L100.0100, L506.0400, L500.4050, L503.6550, L501.9520 #### [facility] [address] [place], [address] Endocrinology Visit Reporton 06-06-2024 Endocrinology Visit Report [facility]ocrinology [facility] [place], [place] [address] OFFICE VISIT Date of Service: 06/06/24 MR#: [id number] Acct: [id number] Name: FLEX WOOTEN Rep #: [id number] : 1960 Provider: SAGE hernandez Age/Sex: 64/F Location: [facility] Status: Signed Intake Vital Signs 05/07/24 11:31 [...] spine Rachel (more content not included)... Normal [facility] CBC W/Diff, Automatedon 10-0 Absolute Lymph 1.84 X10 3/uL Normal 0.83-4.51 [facility] Comment on above: Performed By: #### L 506.1000, L503.0105, L503.6150, L100.0100, L506.0400, L500.4050, L503.6550, L501.9520 #### [facility] [address] [place], [address] Absolute Neut 4.0 X10 3/uL Normal 2.0-7.7 [facility] Comment on above: Performed By: #### L 506.1000, L503.0105, L503.6150, L100.0100, L506.0400, L500.4050, L503.6550, L501.9520 #### [facility] [address] [place], [address] Basophils/100 WBC (Bld) 0.6 % Normal 0-1 [facility] Comment on above: Performed By: #### L 506.1000, L503.0105, L503.6150, L100.0100, L506.0400, L500.4050, L503.6550, L501.9520 #### [facility] Laboratory [address] [place], [address] Eosinophils/100 WBC (Bld) 2.7 % Normal 0-5 [facility] Comment on above: Performed By: #### L 506.1000, L503.0105, L503.6150, L100.0100, L506.0400, L500.4050, L503.6550, L501.9520 #### [facility] [address] [place], [address] Erythrocyte distribution width (RBC) [Ratio] 13.7 % Normal 11.6-14.6 [facility] Comment on above: Performed By: #### L 506.1000, L503.0105, L503.6150, L100.0100, L506.0400, L500.4050, L503.6550, L501.9520 #### [facility] [address] [place], [address] Hematocrit (Bld) [Volume fraction] 42.9 % Normal 37-47 [facility] Comment on above: Performed By: #### L 506.1000, L503.0105, L503.6150, L100.0100, L506.0400, L500.4050, L503.6550, L501.9520 #### [facility] [address] [place], [address] Hemoglobin (Bld) [Mass/Vol] 13.4 g/dL Normal 12.0-15.0 [facility] Comment on above: Performed By: #### L 506.1000, L503.0105, L503.6150, L100.0100, L506.0400, L500.4050, L503.6550, L501.9520 #### [facility] [address] [place], [address] IG% 0.500 Normal 0.0-0.9 [facility] Comment on above: Result Comment: IG% - Immature Granulocytes (promyelocytes, myelocytes and metamyelocytes) > 1% indicates that a LEFT SHIFT is Present. Performed By: #### L 506.1000, L503.0105, L503.6150, L100.0100, L506.0400, L500.4050, L503.6550, L501.9520 #### [facility] [address] [place], [address] Lymphocytes/100 WBC (Bld) 27.8 % Normal 19-41 [facility] Comment on above: Performed By: #### L 506.1000, L503.0105, L503.6150, L100.0100, L506.0400, L500.4050, L503.6550, L501.9520 #### [facility] [address] [place], [address] MCH (RBC) [Entitic mass] 28.7 pg Normal 27.0-32.0 [facility] Comment on above: Performed By: #### L 506.1000, L503.0105, L503.6150, L100.0100, L506.0400, L500.4050, L503.6550, L501.9520 #### [facility] [address] [place], [address] MCHC (RBC) [Mass/Vol] 31.2 g/dL Low 32-36 [facility] Comment on above: Performed By: #### L 506.1000, L503.0105, L503.6150, L100.0100, L506.0400, L500.4050, L503.6550, L501.9520 #### [facility] [address] [place], [address] MCV (RBC) [Entitic vol] 91.9 fL Normal 81-99 [facility] Comment on above: Performed By: #### L 506.1000, L503.0105, L503.6150, L100.0100, L506.0400, L500.4050, L503.6550, L501.9520 #### [facility] [address] [place], [address] Monocytes/100 WBC (Bld) 7.7 % Normal 0-10 [facility] Comment on above: Performed By: #### L 506.1000, L503.0105, L503.6150, L100.0100, L506.0400, L500.4050, L503.6550, L501.9520 #### [facility] [address] [place], [address] Neutrophils/100 WBC (Bld) 60.7 % Normal 47-70 [facility] Comment on above: Performed By: #### L 506.1000, L503.0105, L503.6150, L100.0100, L506.0400, L500.4050, L503.6550, L501.9520 #### [facility] [address] [place], [address] Nucleated RBC (Bld) [#/Vol] 0 10*3/uL Normal 0-5 [facility] Comment on above: Performed By: #### L 506.1000, L503.0105, L503.6150, L100.0100, L506.0400, L500.4050, L503.6550, L501.9520 #### [facility] [address] [place], [address] Platelet mean volume (Bld) [Entitic vol] 9.6 fL Normal 6.2-12.0 [facility] Comment on above: Performed By: #### L 506.1000, L503.0105, L503.6150, L100.0100, L506.0400, L500.4050, L503.6550, L501.9520 #### [facility] [address] [place], [address] Platelets (Bld) [#/Vol] 228 10*3/uL Normal 150-450 [facility] Comment on above: Performed By: #### L 506.1000, L503.0105, L503.6150, L100.0100, L506.0400, L500.4050, L503.6550, L501.9520 #### [facility] [address] [place], [address] RBC (Bld) [#/Vol] 4.67 10*6/uL Normal 4.2-5.4 [facility] Comment on above: Performed By: #### L 506.1000, L503.0105, L503.6150, L100.0100, L506.0400, L500.4050, L503.6550, L501.9520 #### [facility] [address] [place], [address] RDW SD 46.1 fl High 35.1-43.9 [facility] Comment on above: Performed By: #### L 506.1000, L503.0105, L503.6150, L100.0100, L506.0400, L500.4050, L503.6550, L501.9520 #### [facility] [address] [place], [address] WBC (Bld) [#/Vol] 6.6 10*3/uL Normal 4.4-11.0 [facility] Comment on above: Performed By: #### L 506.1000, L503.0105, L503.6150, L100.0100, L506.0400, L500.4050, L503.6550, L501.9520 #### [facility] [address] [place], [address] Comprehensive Metabolic [facility] 06-01-2024 Albumin [Mass/Vol] 3.3 g/dL Normal 3.2-5.0 [facility] Comment on above: Performed By: #### L 506.1000, L503.0105, L503.6150, L100.0100, L506.0400, L500.4050, L503.6550, L501.9520 #### [facility] [address] [place], [address] Albumin/Globulin [Mass ratio] 0.8 {ratio} Low 0.9-2.4 [facility] Comment on above: Performed By: #### L 506.1000, L503.0105, L503.6150, L100.0100, L506.0400, L500.4050, L503.6550, L501.9520 #### [facility] [address] [place], [address] ALK P 102 U/L Normal 45-117 [facility] Comment on above: Performed By: #### L 506.1000, L503.0105, L503.6150, L100.0100, L506.0400, L500.4050, L503.6550, L501.9520 #### [facility] [address] [place], [address] ALT [Catalytic activity/Vol] 66 U/L High 13-56 [facility] Comment on above: Performed By: #### L 506.1000, L503.0105, L503.6150, L100.0100, L506.0400, L500.4050, L503.6550, L501.9520 #### [facility] [address] [place], [address] AST [Catalytic activity/Vol] 63 U/L High 15-37 [facility] Comment on above: Performed By: #### L 506.1000, L503.0105, L503.6150, L100.0100, L506.0400, L500.4050, L503.6550, L501.9520 #### [facility] [address] [place], [address] Bilirubin [Mass/Vol] 0.30 mg/dL Normal 0.20-1.00 [facility] Comment on above: Result Comment: For patients on eltrombopag therapy, use of Dimension [place] TBIL is not recommended. Performed By: #### L 506.1000, L503.0105, L503.6150, L100.0100, L506.0400, L500.4050, L503.6550, L501.9520 #### [facility] [address] [place], [address] BUN/CRE 18.1 RATIO Normal 10-20 [facility] Comment on above: Performed By: #### L 506.1000, L503.0105, L503.6150, L100.0100, L506.0400, L500.4050, L503.6550, L501.9520 #### [facility] [address] [place], [address] CA,Total 9.4 mg/dL Normal 8.5-10.1 [facility] Comment on above: Performed By: #### L 506.1000, L503.0105, L503.6150, L100.0100, L506.0400, L500.4050, L503.6550, L501.9520 #### [facility] [address] [place], [address] Chloride [Moles/Vol] 102 mmol/L Normal 98-107 [facility] Comment on above: Performed By: #### L 506.1000, L503.0105, L503.6150, L100.0100, L506.0400, L500.4050, L503.6550, L501.9520 #### [facility] [address] [place], [address] CO2 [Moles/Vol] 29.0 mmol/L Normal 21.0-32.0 [facility] Comment on above: Performed By: #### L 506.1000, L503.0105, L503.6150, L100.0100, L506.0400, L500.4050, L503.6550, L501.9520 #### [facility] [address] [place], [address] Creatinine [Mass/Vol] 0.88 mg/dL Normal 0.55-1.02 [facility] Comment on above: Result Comment: The validity of the calculated GFR GFRAA in patients over 70 years has not been determined. Clinical correlation is essential. Performed By: #### L 506.1000, L503.0105, L503.6150, L100.0100, L506.0400, L500.4050, L503.6550, L501.9520 #### [facility] [address] [place], [address] EST GFR - AA 82 mL/min Normal >60 [facility] Comment on above: Result Comment: Afri can Sudanese GFR Calc Performed By: #### L 506.1000, L503.0105, L503.6150, L100.0100, L506.0400, L500.4050, L503.6550, L501.9520 #### [facility] [address] [place], [place], [id number] (511) GAP 7 Normal 5-15 [facility] Comment on above: Performed By: #### L 506.1000, L503.0105, L503.6150, L100.0100, L506.0400, L500.4050, L503.6550, L501.9520 #### [facility] [address] [place], [place], [id number] (058 GFR/1.73 sq M.predicted among non-blacks MDRD (S/P/Bld) [Vol rate/Area] 68 mL/min/{1.73_m2} Normal >60 [facility] Comment on above: Result Comment: Non- GFR Calc Performed By: #### L 506.1000, L503.0105, L503.6150, L100.0100, L506.0400, L500.4050, L503.6550, L501.9520 #### [facility] [address] [place], [address] Globulin (S) [Mass/Vol] 4.0 g/dL Normal 2.2-4.2 [facility] Comment on above: Performed By: #### L 506.1000, L503.0105, L503.6150, L100.0100, L506.0400, L500.4050, L503.6550, L501.9520 #### [facility] [address] [place], [address] Glucose [Mass/Vol] 195 mg/dL High 74-106 [facility] Comment on above: Result Comment: Fast ing Glucose result greater than or equal to 126 mg/dL suggests DIABETES MELLITUS per A.D.A. criteria. Performed By: #### L 506.1000, L503.0105, L503.6150, L100.0100, L506.0400, L500.4050, L503.6550, L501.9520 #### [facility] [address] [place], [address] Potassium [Moles/Vol] 3.8 mmol/L Normal 3.5-5.1 [facility] Comment on above: Performed By: #### L 506.1000, L503.0105, L503.6150, L100.0100, L506.0400, L500.4050, L503.6550, L501.9520 #### [facility] [address] [place], [address] Sodium [Moles/Vol] 138 mmol/L Normal 136-145 [facility] Comment on above: Performed By: #### L 506.1000, L503.0105, L503.6150, L100.0100, L506.0400, L500.4050, L503.6550, L501.9520 #### [facility] [address] [place], [address] T PROT 7.3 g/dL Normal 6.4-8.2 [facility] Comment on above: Performed By: #### L 506.1000, L503.0105, L503.6150, L100.0100, L506.0400, L500.4050, L503.6550, L501.9520 #### [facility] [address] [place], [address] Urea nitrogen [Mass/Vol] 16 mg/dL Normal 7-18 [facility] Comment on above: Performed By: #### L 506.1000, L503.0105, L503.6150, L100.0100, L506.0400, L500.4050, L503.6550, L501.9520 #### [facility] [address] [place], [address] Ferritinon 06-01-2024 Ferritin [Mass/Vol] 31 ng/mL Normal 8-252 [facility] Comment on above: Performed By: #### L 500.2500, L506.1001 #### [facility] [address] [place], [address] Ironon 06-01-2024 Iron [Mass/Vol] 78 ug/dL Normal 50-170 [facility] Comment on above: Performed By: #### L 506.1000, L503.0105, L503.6150, L100.0100, L506.0400, L500.4050, L503.6550, L501.9520 #### [facility] [address] [place], [address] T4 Free Directon 06-01-2024 T4 FREE DIRECT 1.07 ng/dL Normal 0.76-1.46 [facility] Comment on above: Performed By: #### L 500.2500, L506.1001 #### [facility] [address] [place], [address] Thyroid Stim Hormone (TSH)on 06-01-2024 TSH 2.790 uIU/mL Normal 0.358-3.740 [facility] Comment on above: Performed By: #### L 506.1000, L503.0105, L503.6150, L100.0100, L506.0400, L500.4050, L503.6550, L501.9520 #### [facility] [address] [place], [address] Vitamin B12on 06-01-2024 Cobalamin (Vitamin B12) [Mass/Vol] 613 pg/mL Normal 211-911 [facility] Comment on above: Performed By: #### L 506.1000, L503.0105, L503.6150, L100.0100, L506.0400, L500.4050, L503.6550, L501.9520 #### [facility] [address] [place], [place], [id number] Vitamin D,25 Hydroxyon 06-01 Vitamin D 25-OH 38.7 ng/mL Normal [facility] Comment on above: Result Comment: Ashley min D 25(OH) Status Range Deficiency <20 ng/mL (50nmol/L) Insufficiency 20 - 30 ng/mL (50 - 75 nmol/L) Sufficiency 30 - 100 ng/mL (75 - 250 nmol/L) Toxicity >100 ng/mL (>250 nmol/L) Performed By: #### L 506.1000, L503.0105, L503.6150, L100.0100, L506.0400, L500.4050, L503.6550, L501.9520 #### [facility] [address] [place], [place], [address] MR/BMS.BPon 05-07-2024 MR/BMS.BP [address], [address] [place] [address] OFFICE VISIT Date of Service: 05/07/24 MR#: [id number] Acct: [id number] Name: FLEX WOOTEN Rep #: [id number] [...] of surg (more content not included)... Normal [facility] Basic Metabolic Profile (BMP )on 04-03-2024 BUN Normal 7-18 [facility] Comment on above: Result Comment: Canc elled via OM: Order cancelled - Patient discharged Performed By: #### L 500.2500, L506.1001 #### [facility] [address] [facility] [address] BUN/CRE Normal 10-20 [facility] Comment on above: Result Comment: Canc elled via OM: Order cancelled - Patient discharged Performed By: #### L 500.2500, L506.1001 #### [facility] [address] [place], [address] CA,Total Normal 8.5-10.1 [facility] Comment on above: Result Comment: Canc elled via OM: Order cancelled - Patient discharged Performed By: #### L 500.2500, L506.1001 #### [facility] [address] [place], [address] CL Normal 98-107 [facility] Comment on above: Result Comment: Canc elled via OM: Order cancelled - Patient discharged Performed By: #### L 500.2500, L506.1001 #### [facility] [address] [place], [address] CO2 Normal 21.0-32.0 [facility] Comment on above: Result Comment: Canc elled via OM: Order cancelled - Patient discharged Performed By: #### L 500.2500, L506.1001 #### [facility] [address] [place], [address] CREAT,SERUM Normal 0.55-1.02 [facility] Comment on above: Result Comment: Canc elled via OM: Order cancelled - Patient discharged Performed By: #### L 500.2500, L506.1001 #### [facility] [address] [place], [address] EST GFR Normal >60 [facility] Comment on above: Result Comment: Canc elled via OM: Order cancelled - Patient discharged Performed By: #### L 500.2500, L506.1001 #### [facility] [address] [place], [address] EST GFR - AA Normal >60 [facility] Comment on above: Result Comment: Canc elled via OM: Order cancelled - Patient discharged Performed By: #### L 500.2500, L506.1001 #### [facility] [address] [place], [address] GAP Normal 5-15 [facility] Comment on above: Result Comment: Canc elled via OM: Order cancelled - Patient discharged Performed By: #### L 500.2500, L506.1001 #### [facility] [address] [place], [address] GLU Normal 74-106 [facility] Comment on above: Result Comment: Canc elled via OM: Order cancelled - Patient discharged Performed By: #### L 500.2500, L506.1001 #### [facility] [address] [place], [address] Potassium Normal 3.5-5.1 [facility] Comment on above: Result Comment: Canc elled via OM: Order cancelled - Patient discharged Performed By: #### L 500.2500, L506.1001 #### [facility] [address] [place], [address] Basic Metabolic Profile (BMP) Normal 136-145 [facility] Comment on above: Result Comment: Canc elled via OM: Order cancelled - Patient discharged Performed By: #### L 500.2500, L506.1001 #### [facility] [address] [place], [address] CBC W/Diff, Automatedon 08-0 -2023 Absolute Neut Normal 2.0-7.7 [facility] Comment on above: Result Comment: Canc elled via OM: Order cancelled - Patient discharged Performed By: #### L 501.080 #### [facility] [address] [place], [address] HCT Normal 37-47 [facility] Comment on above: Result Comment: Canc elled via OM: Order cancelled - Patient discharged Performed By: #### L 501.080 #### [facility] [address] [place], [address] HGB Normal 12.0-15.0 [facility] Comment on above: Result Comment: Canc elled via OM: Order cancelled - Patient discharged Performed By: #### L 501.080 #### [facility] [address] [place], [address] MCH Normal 27.0-32.0 [facility] Comment on above: Result Comment: Canc elled via OM: Order cancelled - Patient discharged Performed By: #### L 501.080 #### [facility] [address] [place], [address] MCHC Normal 32-36 [facility] Comment on above: Result Comment: Canc elled via OM: Order cancelled - Patient discharged Performed By: #### L 501.080 #### [facility] [address] [place], [address] MCV Normal 81-99 [facility] Comment on above: Result Comment: Canc elled via OM: Order cancelled - Patient discharged Performed By: #### L 501.080 #### [facility] [address] [place], [address] NEUT% Normal 47-70 [facility] Comment on above: Result Comment: Canc elled via OM: Order cancelled - Patient discharged Performed By: #### L 501.080 #### [facility] [address] [place], [address] PLT Normal 150-450 [facility] Comment on above: Result Comment: Canc elled via OM: Order cancelled - Patient discharged Performed By: #### L 501.080 #### [facility] [address] [place], [address] RBC Normal 4.2-5.4 [facility] Comment on above: Result Comment: Canc elled via OM: Order cancelled - Patient discharged Performed By: #### L 501.080 #### [facility] [address] [place], [address] RDW CV Normal 11.6-14.6 [facility] Comment on above: Result Comment: Canc elled via OM: Order cancelled - Patient discharged Performed By: #### L 501.080 #### [facility] [address] [place], [address] RDW SD Normal 35.1-43.9 [facility] Comment on above: Result Comment: Canc elled via OM: Order cancelled - Patient discharged Performed By: #### L 501.080 #### [facility] [address] [place], [address] WBC Normal 4.4-11.0 [facility] Comment on above: Result Comment: Canc elled via OM: Order cancelled - Patient discharged Performed By: #### L 501.080 #### [facility] [address] [place], [address] Endocrinology Visit Reporton 04-02-2024 Endocrinology Visit Report [facility] 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 Normal [facility] Basic Metabolic Profile (BMP )on 03-27-2024 BUN Normal -18 [facility] Comment on above: Result Comment: Canc elled via OM: Order cancelled - Patient discharged Performed By: #### L 501.080 #### [facility] [address] [facility] [address] BUN/CRE Normal 10-20 [facility] Comment on above: Result Comment: Canc elled via OM: Order cancelled - Patient discharged Performed By: #### L 501.080 #### [facility] [address] [facility] [address] CA,Total Normal 8.5-10.1 [facility] Comment on above: Result Comment: Canc elled via OM: Order cancelled - Patient discharged Performed By: #### L 501.080 #### [facility] [address] [facility] [address] CL Normal 98-107 [facility] Comment on above: Result Comment: Canc elled via OM: Order cancelled - Patient discharged Performed By: #### L 501.080 #### [facility] [address] [place], [address] CO2 Normal 21.0-32.0 [facility] Comment on above: Result Comment: Canc elled via OM: Order cancelled - Patient discharged Performed By: #### L 501.080 #### [facility] [address] [place], [address] CREAT,SERUM Normal 0.55-1.02 [facility] Comment on above: Result Comment: Canc elled via OM: Order cancelled - Patient discharged Performed By: #### L 501.080 #### [facility] [address] [place], [address] EST GFR Normal >60 [facility] Comment on above: Result Comment: Canc elled via OM: Order cancelled - Patient discharged Performed By: #### L 501.080 #### [facility] [address] [place], [address] EST GFR - AA Normal >60 [facility] Comment on above: Result Comment: Canc elled via OM: Order cancelled - Patient discharged Performed By: #### L 501.080 #### [facility] [address] [place], [address] GAP Normal 5-15 [facility] Comment on above: Result Comment: Canc elled via OM: Order cancelled - Patient discharged Performed By: #### L 501.080 #### [facility] [address] [place], [address] GLU Normal 74-106 [facility] Comment on above: Result Comment: Canc elled via OM: Order cancelled - Patient discharged Performed By: #### L 501.080 #### [facility] [address] [place], [address] Potassium Normal 3.5-5.1 [facility] Comment on above: Result Comment: Canc elled via OM: Order cancelled - Patient discharged Performed By: #### L 501.080 #### [facility] [address] [place], [address] Basic Metabolic Profile (BMP) Normal 136-145 [facility] Comment on above: Result Comment: Canc elled via OM: Order cancelled - Patient discharged Performed By: #### L 501.080 #### [facility] [address] [place], [address] CBC W/Diff, Automatedon 07-3 0-2023 Absolute Neut Normal 2.0-7.7 [facility] Comment on above: Result Comment: Canc elled via OM: Order cancelled - Patient discharged Performed By: #### L 501.080 #### [facility] [address] [place], [address] HCT Normal 37-47 [facility] Comment on above: Result Comment: Canc elled via OM: Order cancelled - Patient discharged Performed By: #### L 501.080 #### [facility] [address] [place], [address] HGB Normal 12.0-15.0 [facility] Comment on above: Result Comment: Canc elled via OM: Order cancelled - Patient discharged Performed By: #### L 501.080 #### [facility] [address] [place], [address] MCH Normal 27.0-32.0 [facility] Comment on above: Result Comment: Canc elled via OM: Order cancelled - Patient discharged Performed By: #### L 501.080 #### [facility] [address] [place], [address] MCHC Normal 32-36 [facility] Comment on above: Result Comment: Canc elled via OM: Order cancelled - Patient discharged Performed By: #### L 501.080 #### [facility] [address] [place], [address] MCV Normal 81-99 [facility] Comment on above: Result Comment: Canc elled via OM: Order cancelled - Patient discharged Performed By: #### L 501.080 #### [facility] [address] [place], [address] NEUT% Normal 47-70 [facility] Comment on above: Result Comment: Canc elled via OM: Order cancelled - Patient discharged Performed By: #### L 501.080 #### [facility] [address] [place], [address] PLT Normal 150-450 [facility] Comment on above: Result Comment: Canc elled via OM: Order cancelled - Patient discharged Performed By: #### L 501.080 #### [facility] [address] [place], [address] RBC Normal 4.2-5.4 [facility] Comment on above: Result Comment: Canc elled via OM: Order cancelled - Patient discharged Performed By: #### L 501.080 #### [facility] [address] [place], [address] RDW CV Normal 11.6-14.6 [facility] Comment on above: Result Comment: Canc elled via OM: Order cancelled - Patient discharged Performed By: #### L 501.080 #### [facility] [address] [place], [address] RDW SD Normal 35.1-43.9 [facility] Comment on above: Result Comment: Canc elled via OM: Order cancelled - Patient discharged Performed By: #### L 501.080 #### [facility] [address] [place], [address] WBC Normal 4.4-11.0 [facility] Comment on above: Result Comment: Canc elled via OM: Order cancelled - Patient discharged Performed By: #### L 501.080 #### [facility] [address] [place], [address] Basic Metabolic Profile (BMP )on 03-20-2024 BUN Normal 7-18 [facility] Comment on above: Result Comment: Canc elled via OM: Order cancelled - Patient discharged Performed By: #### L 500.2500, L506.1001 #### [facility] [address] [place], [address] BUN/CRE Normal 10-20 [facility] Comment on above: Result Comment: Canc elled via OM: Order cancelled - Patient discharged Performed By: #### L 500.2500, L506.1001 #### [facility] [address] [place], [address] CA,Total Normal 8.5-10.1 [facility] Comment on above: Result Comment: Canc elled via OM: Order cancelled - Patient discharged Performed By: #### L 500.2500, L506.1001 #### [facility] [address] [place], [address] CL Normal 98-107 [facility] Comment on above: Result Comment: Canc elled via OM: Order cancelled - Patient discharged Performed By: #### L 500.2500, L506.1001 #### [facility] [address] [place], [address] CO2 Normal 21.0-32.0 [facility] Comment on above: Result Comment: Canc elled via OM: Order cancelled - Patient discharged Performed By: #### L 500.2500, L506.1001 #### [facility] [address] [place], [address] CREAT,SERUM Normal 0.55-1.02 [facility] Comment on above: Result Comment: Canc elled via OM: Order cancelled - Patient discharged Performed By: #### L 500.2500, L506.1001 #### [facility] [address] [place], [address] EST GFR Normal >60 [facility] Comment on above: Result Comment: Canc elled via OM: Order cancelled - Patient discharged Performed By: #### L 500.2500, L506.1001 #### [facility] [address] [place], [address] EST GFR - AA Normal >60 [facility] Comment on above: Result Comment: Canc elled via OM: Order cancelled - Patient discharged Performed By: #### L 500.2500, L506.1001 #### [facility] [address] [place], [address] GAP Normal 5-15 [facility] Comment on above: Result Comment: Canc elled via OM: Order cancelled - Patient discharged Performed By: #### L 500.2500, L506.1001 #### [facility] [address] [place], [address] GLU Normal 74-106 [facility] Comment on above: Result Comment: Canc elled via OM: Order cancelled - Patient discharged Performed By: #### L 500.2500, L506.1001 #### [facility] [address] [place], [address] Potassium Normal 3.5-5.1 [facility] Comment on above: Result Comment: Canc elled via OM: Order cancelled - Patient discharged Performed By: #### L 500.2500, L506.1001 #### [facility] [address] [place], [address] Basic Metabolic Profile (BMP) Normal 136-145 [facility] Comment on above: Result Comment: Canc elled via OM: Order cancelled - Patient discharged Performed By: #### L 500.2500, L506.1001 #### [facility] [address] [place], [address] CBC W/Diff, Automatedon 07-2 Absolute Neut Normal 2.0-7.7 [facility] Comment on above: Result Comment: Canc elled via OM: Order cancelled - Patient discharged Performed By: #### L 500.2500, L506.1001 #### [facility] [address] [place], [address] HCT Normal 37-47 [facility] Comment on above: Result Comment: Canc elled via OM: Order cancelled - Patient discharged Performed By: #### L 500.2500, L506.1001 #### [facility] [address] [place], [address] HGB Normal 12.0-15.0 [facility] Comment on above: Result Comment: Canc elled via OM: Order cancelled - Patient discharged Performed By: #### L 500.2500, L506.1001 #### [facility] [address] [place], [address] MCH Normal 27.0-32.0 [facility] Comment on above: Result Comment: Canc elled via OM: Order cancelled - Patient discharged Performed By: #### L 500.2500, L506.1001 #### [facility] [address] [place], [address] MCHC Normal 32-36 [facility] Comment on above: Result Comment: Canc elled via OM: Order cancelled - Patient discharged Performed By: #### L 500.2500, L506.1001 #### [facility] [address] [place], [address] MCV Normal 81-99 [facility] Comment on above: Result Comment: Canc elled via OM: Order cancelled - Patient discharged Performed By: #### L 500.2500, L506.1001 #### [facility] [address] [place], [address] NEUT% Normal 47-70 [facility] Comment on above: Result Comment: Canc elled via OM: Order cancelled - Patient discharged Performed By: #### L 500.2500, L506.1001 #### [facility] [address] [place], [address] PLT Normal 150-450 [facility] Comment on above: Result Comment: Canc elled via OM: Order cancelled - Patient discharged Performed By: #### L 500.2500, L506.1001 #### [facility] [address] [place], [address] RBC Normal 4.2-5.4 [facility] Comment on above: Result Comment: Canc elled via OM: Order cancelled - Patient discharged Performed By: #### L 500.2500, L506.1001 #### [facility] [address] [place], [address] RDW CV Normal 11.6-14.6 [facility] Comment on above: Result Comment: Canc elled via OM: Order cancelled - Patient discharged Performed By: #### L 500.2500, L506.1001 #### [facility] [address] [place], [address] RDW SD Normal 35.1-43.9 [facility] Comment on above: Result Comment: Canc elled via OM: Order cancelled - Patient discharged Performed By: #### L 500.2500, L506.1001 #### [facility] [address] [place], [address] WBC Normal 4.4-11.0 [facility] Comment on above: Result Comment: Canc elled via OM: Order cancelled - Patient discharged Performed By: #### L 500.2500, L506.1001 #### [facility] [address] [place], [address] 36on 11-03-2023 36 Name of caller: Flex Contact phone number: [phone] Relationship to Patient: patient Provider: Dr. Landis [...] hours to return their call: No Normal [facility] COLONOSCOPYon 09-06-2023 Colonoscopy Table formatting fro m the original result was not included. [facility] Colonoscopy studyon 09-06-19 Table formatting fro m [...] of bowel preparation was evaluated using the [place] Bowel Preparation Scale with scores of: right [...] PM Specimens No specimens collected Procedure Location [facility] [address] [place] [id number] Referring Provider Renita Mijares Do [facility] [address] [place] [address] Procedure Provider Renita Mijares DO [facility] Work Phone: [facility] Work Phone: Radiology Study observation (narrative) [facility] Work Phone: .Auto Diffon 02-24-2023 Basophil, Absolute 0.0 10 3/mcL Normal 0.0-0.2 [facility] ([place] Comment on above: Performed By: #### C ROMEO BRYANT, ANEU #### [address] [address] Basophils/100 WBC (Bld) 0.2 % Normal 0.0-2.5 [facility] ([place]) Comment on above: Performed By: #### ROMEO FRANCIS, ANEU #### [address] [address] Eosinophil, Absolute 0.4 10 3/mcL Normal 0.0-0.4 [facility] ([place]) Comment on above: Performed By: #### ROMEO FRANCIS, ANEU #### [address] [address] Eosinophils/100 WBC (Bld) 3.7 % Normal 0.0-7.0 [facility] ([place] Comment on above: Performed By: #### ROMEO FRANCIS, ANEU #### [address] [address] Lymphocyte, Absolute 1.9 10 3/mcL Normal 0.8-3.9 [facility] ([place] Comment on above: Performed By: #### ROMEO FRANCIS, ANEU #### [address] [address] Lymphocytes/100 WBC (Bld) 19.2 % Normal 10.0-50.0 [facility] ([place] Comment on above: Performed By: #### C ROMEO BRYANT, ANEU #### [address] [address] Monocyte, Absolute 0.6 10 3/mcL Normal 0.2-1.0 [facility] ([place] Comment on above: Performed By: #### C ROMEO BRYANT, ANEU #### [address] [address] Monocytes/100 WBC (Bld) 6.5 % Normal 1.7-13.0 [facility] ([place] Comment on above: Performed By: #### C ROMEO BRYANT, ANEU #### [address] [address] Neutrophils/100 WBC (Bld) 70.4 % Normal 37.0-80.0 [facility] ([place] Comment on above: Performed By: #### ROMEO FRANCIS, ANEU #### [address] [address] .NEUABSon 02-24-2023 Neutrophil, Absolute 6.9 10 3/mcL High 2.9-6.2 [facility] ([place]) Comment on above: Performed By: #### ROMEO FRANCIS, ANEU #### [address] [address] CBCon 02-24-2023 Erythrocyte distribution width (RBC) [Ratio] 14.5 % Normal 11.5-14.5 [facility] ([place] Comment on above: Performed By: #### C ROMEO BRYANT, ANEU #### [address] [address] Hematocrit (Bld) [Volume fraction] 34.4 % Low 37.0-47.0 [facility] ([place] Comment on above: Performed By: #### ROMEO FRANCIS, ANEU #### [address] [address] Hgb 11.4 G/dL Low 12.0-16.0 [facility] ([place] Comment on above: Performed By: #### C ROMEO BRYANT, ANEU #### [place] [address] [place], [place] [address] MCH (RBC) [Entitic mass] 29.9 pg Normal 27.0-31.2 [facility] ([place] Comment on above: Performed By: #### ROMEO FRANCIS, ANEU #### [place] [address] [place] [address] MCHC 33.3 G/dL Normal 33.0-37.0 [facility] ([place] Comment on above: Performed By: #### C ROMEO BRYANT, ANEU #### [place] [address] [address] MCV (RBC) [Entitic vol] 89.7 fL Normal 80.0-94.0 [facility] ([place] Comment on above: Performed By: #### ROMEO FRANCIS, ANEU #### [address] [address] Platelet 180 10 3/mcL Normal 130-400 [facility] ([place] Comment on above: Performed By: #### C ROMEO BRYANT, ANEU #### [address] [address] Platelet mean volume (Bld) [Entitic vol] 7.2 fL Low 7.4-10.4 [facility] ([place] Comment on above: Performed By: #### ROMEO FRANCIS, ANEU #### [address] [address] RBC 3.83 10 6/mcL Low 4.20-5.40 [facility] ([place] Comment on above: Performed By: #### ROMEO FRANCIS, ANEU #### [place] [address] [address] WBC 9.8 10 3/mcL Normal 4.6-10.8 [facility] ([place] Comment on above: Performed By: #### ROMEO FRANCIS, ANEU #### [place] [address] [address] LABORATORYOrdered By: Soha Jiang on 02-24-2023 Blood Glucose Testing Reason Routine (02/24/23 11:46 AM) [facility] Glucose [Mass/Vol] 209 mg/dL Invalid Interpretation Code 82 - 115 mg/dL [facility] Blood Glucose Testing Reason Routine (02/24/23 7:05 AM) [facility] Glucose [Mass/Vol] 139 mg/dL Invalid Interpretation Code 82 - 115 mg/dL [facility] LABORATORYOrdered By: SYSTEM SYSTEM on 02-24-2023 [...] Basophil, Absolute 0.0 10 3/mcL Normal 0.0-0.2 [facility] ([place] Comment on above: Performed By: #### B MP, GFR, CBC, ADIFF, ANEU #### [address] [address] Basophils/100 WBC (Bld) 0.1 % Normal 0.0-2.5 [facility] ([place] Comment on above: Performed By: #### B MP, GFR, CBC, ADIFF, ANEU #### [address] [address] Eosinophil, Absolute 0.0 10 3/mcL Normal 0.0-0.4 [facility] ([place] Comment on above: Performed By: #### B MP, GFR, CBC, ADIFF, ANEU #### [address] [address] Eosinophils/100 WBC (Bld) 0.1 % Normal 0.0-7.0 [facility] ([place] Comment on above: Performed By: #### B MP, GFR, CBC, ADIFF, ANEU #### [address] [address] Lymphocyte, Absolute 1.4 10 3/mcL Normal 0.8-3.9 [facility] ([place] Comment on above: Performed By: #### B MP, GFR, CBC, ADIFF, ANEU #### [address] [address] Lymphocytes/100 WBC (Bld) 12.5 % Normal 10.0-50.0 [facility] ([place] Comment on above: Performed By: #### B MP, GFR, CBC, ADIFF, ANEU #### [address] [address] Monocyte, Absolute 0.5 10 3/mcL Normal 0.2-1.0 [facility] ([place] Comment on above: Performed By: #### B MP, GFR, CBC, ADIFF, ANEU #### [address] [address] Monocytes/100 WBC (Bld) 5.0 % Normal 1.7-13.0 [facility] ([place] Comment on above: Performed By: #### B MP, GFR, CBC, ADIFF, ANEU #### [address] [address] Neutrophils/100 WBC (Bld) 82.3 % High 37.0-80.0 [facility] ([place] Comment on above: Performed By: #### B MP, GFR, CBC, ADIFF, ANEU #### [address] [address] .GFRon 02-23-2023 GFR 61 ml/min/1.73sqm Normal [facility] ([place] Comment on above: Result Comment: GFR Population [...] B MP, GFR, CBC, ADIFF, ANEU #### [address] [address] GFR Non- 51 ml/min/1.73sqm Normal [facility] ([place] Comment on above: Result Comment: GFR Population [...] B MP, GFR, CBC, ADIFF, ANEU #### [address] [address] .NEUABSon 02-23-2023 Neutrophil, Absolute 9.0 10 3/mcL High 2.9-6.2 [facility] ([place] Comment on above: Performed By: #### B MP, GFR, CBC, ADIFF, ANEU #### [address] [address] BMPon 02-23-2023 BUN/Creatinine Ratio 16 ratio Normal 7-27 [facility] ([place] Comment on above: Performed By: #### B MP, GFR, CBC, ADIFF, ANEU #### [address] [address] Calcium [Mass/Vol] 8.7 mg/dL Normal 8.4-10.2 [facility] ([place] Comment on above: Performed By: #### B MP, GFR, CBC, ADIFF, ANEU #### [address] [address] Chloride [Moles/Vol] 103 mmol/L Normal 98-107 [facility] ([place] Comment on above: Performed By: #### B MP, GFR, CBC, ADIFF, ANEU #### [address] [address] CO2 [Moles/Vol] 30 mmol/L Normal 23-31 [facility] ([place] Comment on above: Performed By: #### B MP, GFR, CBC, ADIFF, ANEU #### [address] [address] Creatinine [Mass/Vol] 1.09 mg/dL High 0.55-1.02 [facility] ([place] Comment on above: Performed By: #### B MP, GFR, CBC, ADIFF, ANEU #### [address] [address] Electrolyte Balance 8.0 mEq/L Normal 4.0-15.0 [facility] ([place]) Comment on above: Performed By: #### B MP, GFR, CBC, ADIFF, ANEU #### [address] [address] Glucose [Mass/Vol] 239 mg/dL High 80-115 [facility] ([place] Comment on above: Performed By: #### B MP, GFR, CBC, ADIFF, ANEU #### [address] [address] Potassium [Moles/Vol] 4.8 mmol/L Normal 3.5-5.1 [facility] ([place] Comment on above: Performed By: #### B MP, GFR, CBC, ADIFF, ANEU #### [address] [address] Sodium [Moles/Vol] 141 mmol/L Normal 136-145 [facility] ([place] Comment on above: Performed By: #### B MP, GFR, CBC, ADIFF, ANEU #### [address] [address] Urea nitrogen [Mass/Vol] 17 mg/dL Normal 7-18 [facility] ([place] Comment on above: Performed By: #### B MP, GFR, CBC, ADIFF, ANEU #### [address] [address] CBCon 02-23-2023 Erythrocyte distribution width (RBC) [Ratio] 14.4 % Normal 11.5-14.5 [facility] ([place] Comment on above: Performed By: #### B MP, GFR, CBC, ADIFF, ANEU #### [place] [id number] Hematocrit (Bld) [Volume fraction] 34.9 % Low 37.0-47.0 [facility] ([place] Comment on above: Performed By: #### B MP, GFR, CBC, ADIFF, ANEU #### [address] [address] Hgb 11.6 G/dL Low 12.0-16.0 [facility] ([place] Comment on above: Performed By: #### B MP, GFR, CBC, ADIFF, ANEU #### [address] [address] MCH (RBC) [Entitic mass] 29.6 pg Normal 27.0-31.2 [facility] ([place] Comment on above: Performed By: #### B MP, GFR, CBC, ADIFF, ANEU #### [address] [address] MCHC 33.1 G/dL Normal 33.0-37.0 [facility] ([place] Comment on above: Performed By: #### B MP, GFR, CBC, ADIFF, ANEU #### [address] [address] MCV (RBC) [Entitic vol] 89.4 fL Normal 80.0-94.0 [facility] ([place] Comment on above: Performed By: #### B MP, GFR, CBC, ADIFF, ANEU #### [address] [address] Platelet 231 10 3/mcL Normal 130-400 [facility] ([place] Comment on above: Performed By: #### B MP, GFR, CBC, ADIFF, ANEU #### [address] [address] Platelet mean volume (Bld) [Entitic vol] 7.4 fL Normal 7.4-10.4 [facility] ([place] Comment on above: Performed By: #### B MP, GFR, CBC, ADIFF, ANEU #### [address] [address] RBC 3.90 10 6/mcL Low 4.20-5.40 [facility] ([place] Comment on above: Performed By: #### B MP, GFR, CBC, ADIFF, ANEU #### [address] [address] WBC 10.9 10 3/mcL High 4.6-10.8 [facility] ([place] Comment on above: Performed By: #### B MP, GFR, CBC, ADIFF, ANEU #### [address] [address] LABORATORYOrdered By: Jacob Farmer on 02-23-2023 Glucose [Mass/Vol] 171 mg/dL Invalid Interpretation Code 82 - 115 mg/dL [facility] LABORATORYOrdered By: Eduardo Ghotra on 02-23-2023 Blood Glucose Testing Reason Routine (02/23/23 9:26 PM) [facility] LABORATORYOrdered By: Freddy Salomon on 02-23-2023 Stated Blood Glucose [address] [facility] LABORATORYOrdered By: Robetr Wright on 02-23-2023 Basophil, Absolute 0.0 103/mcL [...] 02-22-2023 ABO/Rh Interp Negative Invalid Interpretation Code [facility] ([place]) Comment on above: Performed By: #### A CASEY VILLARREAL #### [address] [address] Gel ABSon 02-22-2023 Antibody Screen Gel Negative Normal [facility] ([place] Comment on above: Performed By: #### A CASEY VILLARREAL #### [id number] [place], [place] [address] LABORATORYOrdered By: Kiran Harding on 02-22-2023 Stated Blood Glucose [address] [facility] LABORATORYOrdered By: Aline weiss on 02-22-2023 Stated Blood Glucose [address] [facility] Time of Stated Blood Glucose [id number] [facility] LABORATORYOrdered By: Ann Marie Joiner on [...] 02/22/2023 1:07:27 PM Ordering Provider: PJ MAHONEY [facility] ([place] CT KNEE W/O CONTRAST RIGHTon 02-04-2023 CT [...] 02/04/2023 9:09:05 AM Ordering Provider: PJ Bolden [facility] ([place]) .Auto Diffon 02-03-2023 Basophil, Absolute 0.0 10 3/mcL Normal 0.0-0.2 [facility] ([place] Comment on above: Performed By: #### C ROMEO BRYANT, ANEU #### [address] [address] Basophils/100 WBC (Bld) 0.5 % Normal 0.0-2.5 [facility] ([place] Comment on above: Performed By: #### C ROMEO BRYANT, ANEU #### [address] [address] Eosinophil, Absolute 0.1 10 3/mcL Normal 0.0-0.4 [facility] ([place] Comment on above: Performed By: #### C ROMEO BRYANT, ANEU #### [address] [address] Eosinophils/100 WBC (Bld) 2.0 % Normal 0.0-7.0 [facility] ([place] Comment on above: Performed By: #### C ROMEO BRYANT, ANEU #### [address] [address] Lymphocyte, Absolute 2.2 10 3/mcL Normal 0.8-3.9 [facility] ([place] Comment on above: Performed By: #### C ROMEO BRYANT, ANEU #### [address] [address] Lymphocytes/100 WBC (Bld) 29.2 % Normal 10.0-50.0 [facility] ([place] Comment on above: Performed By: #### C ROMEO BRYANT, ANEU #### [address] [address] Monocyte, Absolute 0.5 10 3/mcL Normal 0.2-1.0 [facility] ([place] Comment on above: Performed By: #### C ROMEO BRYANT, ANEU #### [address] [address] Monocytes/100 WBC (Bld) 6.3 % Normal 1.7-13.0 [facility] ([place]) Comment on above: Performed By: #### C ROMEO BRYANT, ANEU #### [address] [address] Neutrophils/100 WBC (Bld) 62.0 % Normal 37.0-80.0 [facility] ([place] Comment on above: Performed By: #### C ROMEO BRYANT, ANEU #### [address] [address] .GFRon 02-03-2023 GFR 74 ml/min/1.73sqm Normal [facility] ([place] Comment on above: Result Comment: GFR Population [...] Performed By: #### C BCROMEO, ANEU #### [address] [address] GFR Non- 61 ml/min/1.73sqm Normal [facility] ([place] Comment on above: Result Comment: GFR Population [...] By: #### ROMEO FRANCIS ANEU #### [place] [address] [address] .NEUABSon 02-03-2023 Neutrophil, Absolute 4.7 10 3/mcL Normal 2.9-6.2 [facility] ([place]) Comment on above: Performed By: #### ROMEO FRANCIS ANEU #### [address] [address] A1Con 02-03-2023 HbA1c (Bld) [Mass fraction] 6.7 % High 4.3-6.4 [facility] ([place] Comment on above: Performed By: #### ROMEO FRANCIS ANEU #### [address] [address] ALBon 02-03-2023 Albumin Level 3.6 G/dL Normal 3.4-4.8 [facility] ([place] Comment on above: Performed By: #### ROMEO FRANCIS ANEU #### [address] [address] BMPon 02-03-2023 BUN/Creatinine Ratio 23 ratio Normal 7-27 [facility] ([place] Comment on above: Performed By: #### ROMEO FRANCIS ANEU #### [address] [address] Calcium [Mass/Vol] 8.9 mg/dL Normal 8.4-10.2 [facility] ([place] Comment on above: Performed By: #### C ROMEO BRYANT, ANEU #### [address] [address] Chloride [Moles/Vol] 100 mmol/L Normal 98-107 [facility] ([place] Comment on above: Performed By: #### C MANNY, ADIFF, ANEU #### [address] [address] CO2 [Moles/Vol] 30 mmol/L Normal 23-31 [facility] ([place] Comment on above: Performed By: #### C ROMEO BRYANT, ANEU #### [address] [address] Creatinine [Mass/Vol] 0.93 mg/dL Normal 0.55-1.02 [facility] ([place] Comment on above: Performed By: #### C ROMEO BRYANT, ANEU #### [address] [address] Electrolyte Balance 9.0 mEq/L Normal 4.0-15.0 [facility] ([place] Comment on above: Performed By: #### C ROMEO BRYANT, ANEU #### [address] [address] Glucose [Mass/Vol] 258 mg/dL High 80-115 [facility] ([place] Comment on above: Performed By: #### C MANNY, ROMEO, ANEU #### [address] [address] Potassium [Moles/Vol] 4.7 mmol/L Normal 3.5-5.1 [facility] ([place] Comment on above: Performed By: #### C MANNY, ROMEO, ANEU #### [address] [address] Sodium [Moles/Vol] 139 mmol/L Normal 136-145 [facility] ([place] Comment on above: Performed By: #### C MANNY, BELINDAIFF, ANEU #### [address] [address] Urea nitrogen [Mass/Vol] 21 mg/dL High 7-18 [facility] ([place] Comment on above: Performed By: #### C BC, ADIFF, ANEU #### [place] [id number] CBCon 02-03-2023 Erythrocyte distribution width (RBC) [Ratio] 15.2 % High 11.5-14.5 [facility] ([place]) Comment on above: Order Comment: Pre-A dmission Testing Performed By: #### C BC, ADIFF, ANEU #### [place] [address] Hematocrit (Bld) [Volume fraction] 36.6 % Low 37.0-47.0 [facility] ([place] Comment on above: Order Comment: Pre-A dmission Testing Performed By: #### C BC, ADKRISTIE, ANEU #### [place] [address] Hgb 12.0 G/dL Normal 12.0-16.0 [facility] ([place] Comment on above: Order Comment: Pre-A dmission Testing Performed By: #### C BC, ADKRISTIE, ANEU #### [place] [address] MCH (RBC) [Entitic mass] 29.5 pg Normal 27.0-31.2 [facility] ([place] Comment on above: Order Comment: Pre-A dmission Testing Performed By: #### C BC, ADIFF, ANEU #### [place] [id number] MCHC 32.8 G/dL Low 33.0-37.0 [facility] ([place]) Comment on above: Order Comment: Pre-A dmission Testing Performed By: #### C BC, ADIFF, ANEU #### [place] [id number] MCV (RBC) [Entitic vol] 90.0 fL Normal 80.0-94.0 [facility] ([place]) Comment on above: Order Comment: Pre-A dmission Testing Performed By: #### C BC, ADIFF, ANEU #### [place] [address] Platelet 234 10 3/mcL Normal 130-400 [facility] ([place]) Comment on above: Order Comment: Pre-A dmission Testing Performed By: #### C BC, ADIFF, ANEU #### [place] [address], [place] [address] Platelet mean volume (Bld) [Entitic vol] 7.0 fL Low 7.4-10.4 [facility] ([place] Comment on above: Order Comment: Pre-A dmission Testing Performed By: #### C BC, ADIFF, ANEU #### [place] [address] [address] RBC 4.07 10 6/mcL Low 4.20-5.40 [facility] ([place] Comment on above: Order Comment: Pre-A dmission Testing Performed By: #### C BC, ADIFF, ANEU #### [place] [address] [address] WBC 7.5 10 3/mcL Normal 4.6-10.8 [facility] ([place] Comment on above: Order Comment: Pre-A dmission Testing Performed By: #### C BC, ADIFF, ANEU #### [place] [address] [address] Gel ABOon 02-03-2023 ABO/Rh Interp Negative Invalid Interpretation Code [facility] ([place]) Comment on above: Order Comment: SURG EDMOND 6/27 -AC Performed By: #### C BC, ADIFF, ANEU #### [place] [address] [address] Gel ABSon 02-03-2023 Antibody Screen Gel Negative Normal [facility] ([place]) Comment on above: Order Comment: SURG EDMOND 6/27 -AC Performed By: #### C BC, ADIFF, ANEU #### [place] [address] [address] LABORATORYOrdered By: Ann Marie Joiner on 02-03-2023 ABO/Rh Interp Negative Invalid Interpretation Code AO BB SS Antibody Screen Gel Negative ABSC (02/03/23 2:34 PM) Invalid Interpretation Code AO BB SS LABORATORYOrdered By: [employer] on 02-03-2023 Albumin BCP dye [Mass/Vol] [...] peptide B (Bld) [Mass/Vol] 14.9 pg/mL 0-100 [facility] Basophil percentageOrdered B y: Dr. Mckeon on 09-17-2022 Chloride [Moles/Vol] 97 mmol/L 98-107 [facility] Glucose [Mass/Vol] 146 mg/dL 74-106 [facility] Comment on above: Fasting Glucose resu lt greater than or equal to 126 mg/dL suggests DIABETES MELLITUS per A.D.A. criteria. Potassium [Moles/Vol] 3.6 mmol/L 3.5-5.1 [facility] Sodium [Moles/Vol] 139 mmol/L 136-145 [facility] Glucose Glucometer (BldC) [M ass/Vol]Ordered By: Dr. Anderson on 09-17-2022 Glucose [Mass/Vol] 129 mg/dL 74-106 [facility] Comment on above: MANAGEMENT OF PATIEN T CARE PER NURSING PROTOCOL Influenza virus A and B and SARS-CoV-2 (COVID-19) Ag panel - Upper respiratory specimOrdered By: Dr. Anderson on 09-17-2022 SARS-CoV-2 (COVID-19) RNA ROJELIO+probe Ql (Resp) [facility] Laboratory - Chemistry and C hemistry - challengeOrdered By: Dr. Mckeon on 09-17-2022 CO2 [Moles/Vol] 32.0 mmol/L 21.0-32.0 [facility] Urea nitrogen/Creatinine [Mass ratio] 18.4 mg/mg 10-20 [facility] No Panel InformationOrdered By: Dr. Mckeon on 09-17-2022 Estimated Creatinine Clearance Calc 56.41 ml/min [facility] Estimated GFR (MDRD) Amer 84 mL/min >60 [facility] Comment on above: GFR Calc Estimated GFR (MDRD) Non-Af Amer 70 mL/min >60 [facility] Comment on above: Non- GFR Calc Serum or plasma calcium dread urement (mass/volume)Ordered By: Dr. Mckeon on 09-17-2022 Calcium [Mass/Vol] 8.8 mg/dL 8.5-10.1 [facility] Serum or plasma creatinine m easurement (mass/volume)Ordered By: Dr. Mckeon on 09-17-2022 Creatinine [Mass/Vol] 0.87 mg/dL 0.55-1.02 [facility] Comment on above: The validity of the calculated GFR & GFRAA in patients over 70 years has not been determined. Clinical correlation is essential. Serum or plasma urea nitroge n measurement (mass/volume)Ordered By: Dr. Mckeon on 09-17-2022 Urea nitrogen [Mass/Vol] 16 mg/dL 7-18 [facility] Thin prep Papanicolaou smear with manual screeningOrdered By: Dr. Mckeon on 09-17-2022 Thin prep Papanicolaou smear with manual screening 10 5-15 [facility] Absolute lymphocyte countOrd ered By: Dr. Dee on 09-16-2022 Lymphocytes Auto (Unsp spec) [#/Vol] 1.58 10*3/uL 0.83-4.51 [facility] Assessment of wrist artery p atency prior to arterial punctureOrdered By: Dr. Dee on 09-16-2022 Arterial patency Wrist artery --pre arterial puncture Positive [facility] Base excessOrdered By: Dr. Krystin dean on 09-16-2022 Base excess Calc (BldV) [Moles/Vol] 7 mmol/L -2-2 [facility] Basophil percentageOrdered B y: Dr. Dee on 09-16-2022 Basophil percentage 31.9 mmol/L 22-26 [facility] Basophils/100 WBC (Bld) 95 % 95-99 [facility] Basophil percentage 0 SEEN /hpf 0-5 [facility] Basophils/100 WBC (Bld) 0.4 % 0-1 [facility] Eosinophils/100 WBC (Bld) 3.3 % 0-5 [facility] Neutrophils (Bld) [#/Vol] 5.8 10*3/uL 2.0-7.7 [facility] Neutrophils/100 WBC (Bld) 69.5 % 47-70 [facility] WBC (Bld) [#/Vol] 8.4 10*3/uL 4.4-11.0 [facility] Bilirubin Test strip Ql (U)O rdered By: Dr. Dee on 09-16-2022 Bilirubin Ql (U) Negative Negative [facility] Blood erythrocytes count (nu mber/volume)Ordered By: Dr. Dee on 09-16-2022 RBC (Bld) [#/Vol] 4.41 10*6/uL 4.2-5.4 [facility] Blood hemoglobin measurement (mass/volume)Ordered By: Dr. Dee on 09-16-2022 Hemoglobin (Bld) [Mass/Vol] 12.2 g/dL 12.0-15.0 [facility] Blood lymphocytes/100 leukoc ytesOrdered By: Dr. Dee on 09-16-2022 Lymphocytes/100 WBC (Bld) 18.8 % 19-41 [facility] Blood monocytes/100 leukocyt esOrdered By: Dr. Dee on 09-16-2022 Monocytes/100 WBC (Bld) 7.5 % 0-10 [facility] Blood platelet mean volumeOr dered By: Dr. Dee on 09-16-2022 Platelet mean volume (Bld) [Entitic vol] 10.1 fL 6.2-12.0 [facility] CO2 (BldA) [Partial pressure ]Ordered By: Dr. Dee on 09-16-2022 CO2 (Bld) [Partial pressure] 53.2 mm[Hg] 35-45 [facility] Determination of erythrocyte mean corpuscular volume (MCV)Ordered By: Dr. Dee on 09-16-2022 MCV (RBC) [Entitic vol] 90.0 fL 81-99 [facility] Hematocrit Auto (Bld) [Volum e fraction]Ordered By: Dr. Dee on 09-16-2022 Hematocrit (Bld) [Volume fraction] 39.7 % 37-47 [facility] Ketones Test strip Ql (U)Ord ered By: Dr. Dee on 09-16-2022 Ketones Ql (U) Negative Negative [facility] Laboratory - Chemistry and C hemistry - challengeOrdered By: Dr. Dee on 09-16-2022 Natriuretic peptide B (Bld) [Mass/Vol] 76.4 pg/mL 0-100 [facility] Laboratory - Hematology and Cell countsOrdered By: Dr. Dee on 09-16-2022 Erythrocyte distribution width (RBC) [Entitic vol] 45.8 fL 35.1-43.9 [facility] Erythrocyte distribution width (RBC) [Ratio] 14.1 % 11.6-14.6 [facility] Immature granulocytes/100 WBC (Bld) 0.500 % 0.0-0.9 [facility] Comment on above: IG% - Immature Granu locytes (promyelocytes, myelocytes and metamyelocytes) > 1% indicates that a LEFT SHIFT is Present. MCH (RBC) [Entitic mass] 27.7 pg 27.0-32.0 [facility] Nucleated RBC/100 WBC (Bld) [Ratio] 0 % 0-5 [facility] MCHC Auto (RBC) [Mass/Vol]Or dered By: Dr. Dee on 09-16-2022 MCHC (RBC) [Mass/Vol] 30.7 g/dL 32-36 [facility] Mucus LM Ql (Urine sed)Order ed By: Dr. Dee on 09-16-2022 Mucus Ql (Urine sed) 0 SEEN /hpf [facility] Nitrite Test strip Ql (U)Ord ered By: Dr. Dee on 09-16-2022 Nitrite Ql (U) Negative Negative [facility] No Panel InformationOrdered By: Dr. Dee on 09-16-2022 Blood Gas Liter Flow 2.0 /min [facility] Blood Gas Sample Site L Radial [facility] Blood Gas Specimen Type ART [facility] Blood Gas Total CO2 34 mmol/L [facility] Oxygen Delivery Device Cannula [facility] Troponin I High Sensitivity 6 pg/mL 3.0-54.0 [facility] Comment on above: Please Note: New Selene t Units and Gender Specific Reference Ranges. For more information see Policy Stat Procedure [place] High Sensitivity Troponin (TNIH) and attachments. Oxygen (BldA) [Partial press ure]Ordered By: Dr. Dee on 09-16-2022 Oxygen (Bld) [Partial pressure] 79 mmHG 75-100 [facility] Platelets bldOrdered By: Dr. Dee on 09-16-2022 Platelets (Bld) [#/Vol] 254 10*3/uL 150-450 [facility] Protein Test strip Ql (U)Ord ered By: Dr. Dee on 09-16-2022 Protein Ql (U) Negative Negative [facility] Squamous epithelial cells de tection in urine sediment by light microscopyOrdered By: Dr. Dee on 09-16-2022 Epithelial cells.squamous LM Ql (Urine sed) 0-5 SEEN /hpf 5-10 [facility] Urine blood detectionOrdered By: Dr. Dee on 09-16-2022 RBC Ql (U) Negative Negative [facility] RBC Ql (U) 0 SEEN /hpf 0-5 [facility] Urine clarityOrdered By: Dr. Dee on 09-16-2022 Clarity (U) Clear Clear [facility] Urine color determinationOrd ered By: Dr. Dee on 09-16-2022 Color (U) Yellow Yellow [facility] Urine glucose detectionOrder ed By: Dr. Dee on 09-16-2022 Glucose Ql (U) Normal mg/dl Normal [facility] Urine leukocyte esterase det ection by dipstickOrdered By: Dr. Dee on 09-16-2022 Leukocyte esterase Test strip Ql (U) Negative Negative [facility] Urine pHOrdered By: Dr. Lloyd joshi on 09-16-2022 pH (U) 7.0 [pH] 5.0 - 8.0 [facility] Urine sediment bacteria coun t by microscopy (number/high power field)Ordered By: Dr. Dee on 09-16-2022 Bacteria LM.HPF (Urine sed) [#/Area] 0 /[HPF] None Seen [facility] Urine specific gravity measu rementOrdered By: Dr. Dee on 09-16-2022 Specific gravity (U) [Rel density] 1.005 1.002-1.030 [facility] Urobilinogen Auto test strip Ql (U)Ordered By: Dr. Dee on 09-16-2022 Urobilinogen Ql (U) Normal mg/dl Normal [facility] pH measurementOrdered By: Dr Nikhil Dee on 09-16-2022 pH (Unsp spec) 7.39 [pH] 7.35-7.45 [facility] No Panel InformationOrdered By: Dr. Shaw on 09-15-2022 D-Dimer Quantitative (PE/DVT) 0.65 FEU/ug/m 0.27-0.49 [facility] Comment on above: D-Dimer ELEVATED (>0 .49): Additional studies and clinicalassessments are indicated to conclude diagnosis of:Deep Vein Thrombosis (DVT) or Pulmonary Embolism (PE)CRITICAL VALUE VERIFIED. CALLED TO SHELDON CHILEL09/15/22 Ildefonso Leal.RESULTS READ BACK BY SAME. Laboratory - Hematology and Cell countson 09-13-2022 HbA1c (Bld) [Mass fraction] 7.1 % [facility] Laboratory - Drug toxicology Ordered By: Dr. Trejo on 07-07-2022 Amphetamines Ql (U) Negative <1000 ng/mL [facility] Benzodiazepines Ql (U) Negative < 200 ng/mL [facility] Cannabinoids Screen Ql (U) Negative < 50 ng/mL [facility] Cocaine Ql (U) Negative < 300 ng/mL [facility] Opiates Ql (U) Positive < 300 ng/mL [facility] No Panel InformationOrdered By: Dr. Trejo on 07-07-2022 MDMA (Ecstasy) Screen Negative < 500 ng/mL [facility] Miscellaneous Test See comment [facility] Comment on above: [id number] 6+OXYCODONE-B UND (ng/mL) DRUG RESULT SCREEN CUTOFF____ [...] Urine Barbiturates Screen Negative < 200 ng/mL [facility] Urine Drug Screen Comment [facility] Comment on above: CONFIRMATORY TESTING FOR ALL [...] TESTING MUST BE ORDERED SEPARATELY. USE TESTMNEMONIC: [facility] Urine Methadone Screen Negative < 300 ng/mL [facility] Urine phencyclidine (PCP) de tectionOrdered By: Dr. Trejo on 07-07-2022 Phencyclidine Ql (U) Negative < 25 ng/mL [facility] ERICA Telephone (ANDRE) FLEX WOOTEN ([id number]) 1960 F Date Time Provider Department 06/23/22 NICOLÁS AGGARWAL During your visit today, we recorded the following information about you: Mendy Adams RN 06/23/2022 8:51 AM Signed I left a message for Tessie at [facility] regarding their addendum request. 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] 05/19/2022 Diabetic neuropathy, painful (HCC) [E11.40] 05/19/2022 Acquired valgus deformity of left ankle [M21.07*05/19/2022 Encounter Status:Closed by MENDY AADMS RN on 06/25/22 [facility] CNOVon 05-19-2022 CNOV Office Visit (ORAVON ) FLEX WOOTEN ([id number]) 1960 F Date Time Provider Department 05/19/22 [...] Diagnosis Date DVT (deep venous thrombosis) ([facility]) 2013 post knee replacement Fibromyalgia Hemorrhage of gastrointestinal tract, unspecified Hemorrhage of rectum and anus Internal hemorrhoids without mention of complication Other forms of migraine Other unspecified back disorder Pulmonary embolism ([facility]) 2013 PAST SURGICAL HISTORY Procedure Laterality Date [...] left knee -- meniscus repair; Dr. [facility] SIGMOIDOSCOPY FLX DX W/COLLJ SPEC BR/WA [...] Worsening Previous (more content not included)... Normal [facility] Laboratory - Hematology and Cell countson 05-19-2022 HbA1c (Bld) [Mass fraction] 7.5 % [facility] Work Phone: XR FOOT 3V AP/LAT/OBL LTon [...] noted. IMPRESSION: Remote postoperative and degenerative changes. 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 Work Phone: Basophils/100 WBC (Bld) 0.4 % 0-1 [facility] Work Phone: Bilirubin [Mass/Vol] 0.30 mg/dL 0.20-1.00 [facility] Work Phone: Comment on above: For patients on eltr ombopag therapy, use of Dimension [place] TBIL is not recommended. Chloride [Moles/Vol] 103 mmol/L 98-107 [facility] Work Phone: [phone] Eosinophils/100 WBC (Bld) 0.0 % 0-5 [facility] Work Phone: Glucose [Mass/Vol] 545 mg/dL 74-106 [facility] Work Phone: Comment on above: Critical Result(s) C alled at: 00:43:30 01/31/2022 by: PERRY IGLESIAS TO RICA STEPHEN. Results read back by same.Glucose result greater than or equal to 200 mg/dLsuggests DIABETES MELLITUS per A.D.A. criteria. Neutrophils (Bld) [#/Vol] 7.0 10*3/uL 2.0-7.7 [facility] Work Phone: Neutrophils/100 WBC (Bld) 78.6 % 47-70 [facility] Work Phone: Potassium [Moles/Vol] 4.6 mmol/L 3.5-5.1 [facility] Work Phone: Comment on above: Moderate Hemolysis, Result may be falsely increased. Protein [Mass/Vol] 7.4 g/dL 6.4-8.2 [facility] Work Phone: Sodium [Moles/Vol] 135 mmol/L 136-145 [facility] Work Phone: WBC (Bld) [#/Vol] 8.9 10*3/uL 4.4-11.0 [facility] Work Phone: Bilirubin Test strip Ql (U)o n 01-31-2022 Bilirubin Ql (U) Negative Negative [facility] Work Phone: Blood erythrocytes count (nu mber/volume)on 01-31-2022 RBC (Bld) [#/Vol] 4.98 10*6/uL 4.2-5.4 [facility] Work Phone: Blood hemoglobin measurement (mass/volume)on 01-31-2022 Hemoglobin (Bld) [Mass/Vol] 13.5 g/dL 12.0-15.0 [facility] Work Phone: Blood lymphocytes/100 leukoc yteson 01-31-2022 Lymphocytes/100 WBC (Bld) 9.8 % 19-41 [facility] Work Phone: Blood monocytes/100 leukocyt eson 01-31-2022 Monocytes/100 WBC (Bld) 6.4 % 0-10 [facility] Work Phone: Blood platelet mean volumeon 01-31-2022 Platelet mean volume (Bld) [Entitic vol] 9.6 fL 6.2-12.0 [facility] Work Phone: Determination of erythrocyte mean corpuscular volume (MCV)on 01-31-2022 MCV (RBC) [Entitic vol] 85.7 fL 81-99 [facility] Work Phone: Glucose Glucometer (BldC) [M ass/Vol]on 01-31-2022 Glucose [Mass/Vol] 399 mg/dL 74-106 [facility] Work Phone: Comment on above: MANAGEMENT OF PATIEN T CARE PER NURSING PROTOCOL HCO3 (BldA) [Moles/Vol]on HCO3 (Bld) [Moles/Vol] 25 mmol/L 22-26 [facility] Work Phone: Hematocrit Auto (Bld) [Volum e fraction]on 01-31-2022 Hematocrit (Bld) [Volume fraction] 42.7 % 37-47 [facility] Work Phone: Ketones Test strip Ql (U)on 01-31-2022 Ketones Ql (U) Negative Negative [facility] Work Phone: Laboratory - Chemistry and C hemistry - challengeon 01-31-2022 CO2 [Moles/Vol] 26 mmol/L 23-33 [facility] Work Phone: ALP [Catalytic activity/Vol] 89 U/L 45-117 [facility] Work Phone: ALT [Catalytic activity/Vol] 44 U/L 13-56 [facility] Work Phone: CO2 [Moles/Vol] 26.0 mmol/L 21.0-32.0 [facility] Work Phone: Globulin (S) [Mass/Vol] 4.0 g/dL 2.2-4.2 [facility] Work Phone: Urea nitrogen/Creatinine [Mass ratio] 24.0 mg/mg 10-20 [facility] Work Phone: Laboratory - Hematology and Cell countson 01-31-2022 Erythrocyte distribution width (RBC) [Entitic vol] 46.8 fL 35.1-43.9 [facility] Work Phone: Erythrocyte distribution width (RBC) [Ratio] 14.9 % 11.6-14.6 [facility] Work Phone: Immature granulocytes/100 WBC (Bld) 4.800 % 0.0-0.9 [facility] Work Phone: Comment on above: IG% - Immature Granu locytes (promyelocytes, myelocytes and metamyelocytes) > 1% indicates that a LEFT SHIFT is Present. MCH (RBC) [Entitic mass] 27.1 pg 27.0-32.0 [facility] Work Phone: Nucleated RBC/100 WBC (Bld) [Ratio] 0 % 0-5 [facility] Work Phone: MCHC Auto (RBC) [Mass/Vol]on 01-31-2022 MCHC (RBC) [Mass/Vol] 31.6 g/dL 32-36 [facility] Work Phone: Mucus LM Ql (Urine sed)on Mucus Ql (Urine sed) 0 SEEN /hpf [facility] Work Phone: Nitrite Test strip Ql (U)on 01-31-2022 Nitrite Ql (U) Negative Negative [facility] Work Phone: No Panel Informationon 01-31 Bed Mix Venous Bld PCO2 at Pat Temp 43.6 mmHg 41-51 [facility] Work Phone: Blood Gas Specimen Type REJI [facility] Work Phone: Venous Blood Base Excess -1 mmol/L -1.0-3.5 [facility] Work Phone: Estimated Creatinine Clearance Calc 39.78 ml/min [facility] Work Phone: Estimated GFR (MDRD) Amer 56 mL/min >60 [facility] Work Phone: Comment on above: GFR Calc Estimated GFR (MDRD) Non-Af Amer 46 mL/min >60 [facility] Work Phone: Comment on above: Non- GFR Calc PO2 venouson 01-31-2022 Oxygen (BldV) [Partial pressure] 42 mm[Hg] 25-40 [facility] Work Phone: Platelets bldon 01-31-2022 Platelets (Bld) [#/Vol] 317 10*3/uL 150-450 [facility] Work Phone: Protein Test strip Ql (U)on 01-31-2022 Protein Ql (U) Negative Negative [facility] Work Phone: Serum or plasma acetone dread urement (mass/volume)on 01-31-2022 Acetone [Mass/Vol] Negative NEG [facility] Work Phone: Serum or plasma albumin dread urement (mass/volume)on 01-31-2022 Albumin [Mass/Vol] 3.4 g/dL 3.2-5.0 [facility] Work Phone: Serum or plasma albumin/glob ulin mass ratioon 01-31-2022 Albumin/Globulin [Mass ratio] 0.8 {ratio} 0.9-2.4 [facility] Work Phone: Serum or plasma calcium dread urement (mass/volume)on 01-31-2022 Calcium [Mass/Vol] 8.7 mg/dL 8.5-10.1 [facility] Work Phone: Serum or plasma creatinine m easurement (mass/volume)on 01-31-2022 Creatinine [Mass/Vol] 1.25 mg/dL 0.55-1.02 [facility] Work Phone: Comment on above: The validity of the calculated GFR & GFRAA in patients over 70 years has not been determined. Clinical correlation is essential. Serum or plasma urea nitroge n measurement (mass/volume)on 01-31-2022 Urea nitrogen [Mass/Vol] 30 mg/dL 7-18 [facility] Work Phone: Squamous epithelial cells de tection in urine sediment by light microscopyon 01-31-2022 Epithelial cells.squamous LM Ql (Urine sed) 0 SEEN /hpf [facility] Work Phone: Thin prep Papanicolaou smear with manual screeningon 01-31-2022 Thin prep Papanicolaou smear with manual screening 20 U/L 15-37 [facility] Work Phone: Comment on above: Moderate Hemolysis, Result may be falsely increased. Thin prep Papanicolaou smear with manual screening 6 5-15 [facility] Work Phone: Urine blood detectionon RBC Ql (U) Negative Negative [facility] Work Phone: RBC Ql (U) 0 SEEN /hpf [facility] Work Phone: Urine clarityon 01-31-2022 Clarity (U) Clear Clear [facility] Work Phone: Urine color determinationon 01-31-2022 Color (U) Straw Yellow [facility] Work Phone: Urine glucose detectionon Glucose Ql (U) 1000 mg/dl Normal [facility] Work Phone: Urine leukocyte esterase det ection by dipstickon 01-31-2022 Leukocyte esterase Test strip Ql (U) Negative Negative [facility] Work Phone: Urine pHon 01-31-2022 pH (U) 6.0 [pH] [facility] Work Phone: Urine sediment bacteria coun t by microscopy (number/high power field)on 01-31-2022 Bacteria LM.HPF (Urine sed) [#/Area] 0 /[HPF] None Seen [facility] Work Phone: Urine specific gravity measu rementon 01-31-2022 Specific gravity (U) [Rel density] 1.015 [facility] Work Phone: Urobilinogen Auto test strip Ql (U)on 01-31-2022 Urobilinogen Ql (U) Normal mg/dl Normal [facility] Work Phone: Vital signson 01-31-2022 Oxygen saturation in Blood 76 % 50-70 [facility] Work Phone: pH measurementon 01-31-2022 pH (Unsp spec) 7.36 [pH] 7.32-7.42 [facility] Work Phone: Absolute lymphocyte counton 01-25-2022 Lymphocytes Auto (Unsp spec) [#/Vol] 1.06 10*3/uL 0.83-4.51 [facility] Work Phone: Basophil percentageon 2021 Basophils/100 WBC (Bld) 0.7 % 0-1 [facility] Work Phone: Chloride [Moles/Vol] 104 mmol/L 98-107 [facility] Work Phone: Eosinophils/100 WBC (Bld) 2.9 % 0-5 [facility] Work Phone: Glucose [Mass/Vol] 166 mg/dL 74-106 [facility] Work Phone: Comment on above: Fasting Glucose resu lt greater than or equal to 126 mg/dL suggests DIABETES MELLITUS per A.D.A. criteria. Neutrophils (Bld) [#/Vol] 4.2 10*3/uL 2.0-7.7 [facility] Work Phone: [phone] Neutrophils/100 WBC (Bld) 68.9 % 47-70 [facility] Work Phone: Potassium [Moles/Vol] 4.1 mmol/L 3.5-5.1 [facility] Work Phone: Sodium [Moles/Vol] 139 mmol/L 136-145 [facility] Work Phone: WBC (Bld) [#/Vol] 6.1 10*3/uL 4.4-11.0 [facility] Work Phone: Blood erythrocytes count (nu mber/volume)on 01-25-2022 RBC (Bld) [#/Vol] 4.60 10*6/uL 4.2-5.4 [facility] Work Phone: Blood hemoglobin measurement (mass/volume)on 01-25-2022 Hemoglobin (Bld) [Mass/Vol] 12.3 g/dL 12.0-15.0 [facility] Work Phone: Blood lymphocytes/100 leukoc yteson 01-25-2022 Lymphocytes/100 WBC (Bld) 17.3 % 19-41 [facility] Work Phone: Blood monocytes/100 leukocyt eson 01-25-2022 Monocytes/100 WBC (Bld) 9.9 % 0-10 [facility] Work Phone: Blood platelet mean volumeon 01-25-2022 Platelet mean volume (Bld) [Entitic vol] 9.2 fL 6.2-12.0 [facility] Work Phone: Determination of erythrocyte mean corpuscular volume (MCV)on 01-25-2022 MCV (RBC) [Entitic vol] 87.8 fL 81-99 [facility] Work Phone: Hematocrit Auto (Bld) [Volum e fraction]on 01-25-2022 Hematocrit (Bld) [Volume fraction] 40.4 % 37-47 [facility] Work Phone: Laboratory - Chemistry and C hemistry - challengeon 01-25-2022 CO2 [Moles/Vol] 31.0 mmol/L 21.0-32.0 [facility] Work Phone: Urea nitrogen/Creatinine [Mass ratio] 11.1 mg/mg 10-20 [facility] Work Phone: Laboratory - Hematology and Cell countson 01-25-2022 Erythrocyte distribution width (RBC) [Entitic vol] 50.0 fL 35.1-43.9 [facility] Work Phone: Erythrocyte distribution width (RBC) [Ratio] 15.7 % 11.6-14.6 [facility] Work Phone: Immature granulocytes/100 WBC (Bld) 0.300 % 0.0-0.9 [facility] Work Phone: Comment on above: IG% - Immature Granu locytes (promyelocytes, myelocytes and metamyelocytes) > 1% indicates that a LEFT SHIFT is Present. MCH (RBC) [Entitic mass] 26.7 pg 27.0-32.0 [facility] Work Phone: Nucleated RBC/100 WBC (Bld) [Ratio] 0 % 0-5 [facility] Work Phone: MCHC Auto (RBC) [Mass/Vol]on 01-25-2022 MCHC (RBC) [Mass/Vol] 30.4 g/dL 32-36 [facility] Work Phone: No Panel Informationon 01-25 D-Dimer Quantitative (PE/DVT) 0.85 FEU/ug/m 0.27-0.49 [facility] Work Phone: Comment on above: RESULTS CALLED TO LAVINIA RODRÍGUEZ RN 01/25/22 6438 Rubina Chairez.REPORT READ BACK BY SAME.D-Dimer ELEVATED (>0.49): Additional studies and clinicalassessments are indicated to conclude diagnosis of:Deep Vein Thrombosis (DVT) or Pulmonary Embolism (PE) Estimated Creatinine Clearance Calc 61.39 ml/min [facility] Work Phone: Estimated GFR (MDRD) Amer 91 mL/min >60 [facility] Work Phone: Comment on above: GFR Calc Estimated GFR (MDRD) Non-Af Amer 75 mL/min >60 [facility] Work Phone: Comment on above: Non- GFR Calc Troponin I High Sensitivity < 3 pg/mL 3.0-54.0 [facility] Work Phone: Comment on above: Please Note: New Selene t Units and Gender Specific Reference Ranges. For more information see Policy Stat Procedure [place] High Sensitivity Troponin (TNIH) and attachments. SARS-CoV-2 & FLU Antigen (Rapid) SARS-CoV-2 (COVID 19) [facility] Work Phone: Platelets bldon 01-25-2022 Platelets (Bld) [#/Vol] 181 10*3/uL 150-450 [facility] Work Phone: Serum or plasma calcium dread urement (mass/volume)on 01-25-2022 Calcium [Mass/Vol] 8.5 mg/dL 8.5-10.1 [facility] Work Phone: Serum or plasma creatinine m easurement (mass/volume)on 01-25-2022 Creatinine [Mass/Vol] 0.81 mg/dL 0.55-1.02 [facility] Work Phone: Comment on above: The validity of the calculated GFR & GFRAA in patients over 70 years has not been determined. Clinical correlation is essential. Serum or plasma urea nitroge n measurement (mass/volume)on 01-25-2022 Urea nitrogen [Mass/Vol] 9 mg/dL 7-18 [facility] Work Phone: Thin prep Papanicolaou smear with manual screeningon 01-25-2022 Thin prep Papanicolaou smear with manual screening 4 5-15 [facility] Work Phone: Culture, urineon 11-12-2021 Bacteria identified Cx Nom (U) Presumptive Lactobacillus sp. [facility] Work Phone: Absolute lymphocyte counton 11-10-2021 Lymphocytes Auto (Unsp spec) [#/Vol] 1.61 10*3/uL 0.83-4.51 [facility] Work Phone: Basophil percentageon 2021 Basophils/100 WBC (Bld) 0.7 % 0-1 [facility] Work Phone: [phone] Chloride [Moles/Vol] 102 mmol/L 98-107 [facility] Work Phone: [phone] Eosinophils/100 WBC (Bld) 3.1 % 0-5 [facility] Work Phone: [phone] Glucose [Mass/Vol] 281 mg/dL 74-106 [facility] Work Phone: [phone] Comment on above: Glucose result great er than or equal to 200 mg/dLsuggests DIABETES MELLITUS per A.D.A. criteria. Neutrophils (Bld) [#/Vol] 3.7 10*3/uL 2.0-7.7 [facility] Work Phone: Neutrophils/100 WBC (Bld) 60.3 % 47-70 [facility] Work Phone: [phone] Potassium [Moles/Vol] 4.1 mmol/L 3.5-5.1 [facility] Work [facility]: [phone] Sodium [Moles/Vol] 138 mmol/L 136-145 [facility] Work Phone: [phone] WBC (Bld) [#/Vol] 6.1 10*3/uL 4.4-11.0 [facility] Work Phone: Blood erythrocytes count (nu mber/volume)on 11-10-2021 RBC (Bld) [#/Vol] 4.46 10*6/uL 4.2-5.4 [facility] Work Phone: [phone] Blood hemoglobin measurement (mass/volume)on 11-10-2021 Hemoglobin (Bld) [Mass/Vol] 11.8 g/dL 12.0-15.0 [facility] Work Phone: [phone] Blood lymphocytes/100 leukoc yteson 11-10-2021 Lymphocytes/100 WBC (Bld) 26.3 % 19-41 [facility] Work Phone: Blood monocytes/100 leukocyt eson 11-10-2021 Monocytes/100 WBC (Bld) 9.1 % 0-10 [facility] Work Phone: Blood platelet mean volumeon 11-10-2021 Platelet mean volume (Bld) [Entitic vol] 9.2 fL 6.2-12.0 [facility] Work Phone: Determination of erythrocyte mean corpuscular volume (MCV)on 11-10-2021 MCV (RBC) [Entitic vol] 83.9 fL 81-99 [facility] Work Phone: Hematocrit Auto (Bld) [Volum e fraction]on 11-10-2021 Hematocrit (Bld) [Volume fraction] 37.4 % 37-47 [facility] Work Phone: Laboratory - Chemistry and C hemistry - challengeon 11-10-2021 Magnesium [Mass/Vol] 1.7 mg/dL 1.6-2.6 [facility] Work Phone: CO2 [Moles/Vol] 30.0 mmol/L 21.0-32.0 [facility] Work Phone: Urea nitrogen/Creatinine [Mass ratio] 14.9 mg/mg 10-20 [facility] Work Phone: [phone] Laboratory - Hematology and Cell countson 11-10-2021 Erythrocyte distribution width (RBC) [Entitic vol] 50.7 fL 35.1-43.9 [facility] Work Phone: Erythrocyte distribution width (RBC) [Ratio] 16.8 % 11.6-14.6 [facility] Work Phone: Immature granulocytes/100 WBC (Bld) 0.500 % 0.0-0.9 [facility] Work Phone: Comment on above: IG% - Immature Granu locytes (promyelocytes, myelocytes and metamyelocytes) > 1% indicates that a LEFT SHIFT is Present. MCH (RBC) [Entitic mass] 26.5 pg 27.0-32.0 [facility] Work Phone: Nucleated RBC/100 WBC (Bld) [Ratio] 0 % 0-5 [facility] Work Phone: MCHC Auto (RBC) [Mass/Vol]on 11-10-2021 MCHC (RBC) [Mass/Vol] 31.6 g/dL 32-36 [facility] Work Phone: No Panel Informationon 11-10 Thyroid Stimulating Hormone (TSH) 3.14 uIU/mL 0.358-3.74 [facility] Work Phone: Estimated GFR (MDRD) Amer 71 mL/min >60 [facility] Work Phone: Comment on above: GFR Calc Estimated GFR (MDRD) Non-Af Amer 59 mL/min >60 [facility] Work Phone: Comment on above: Non- GFR Calc Nasal Screen MRSA/MSSA [facility] Work Phone: Platelets bldon 11-10-2021 Platelets (Bld) [#/Vol] 261 10*3/uL 150-450 [facility] Work Phone: Serum or plasma albumin dread urement (mass/volume)on 11-10-2021 Albumin [Mass/Vol] 3.4 g/dL 3.2-5.0 [facility] Work Phone: Serum or plasma calcium dread urement (mass/volume)on 11-10-2021 Calcium [Mass/Vol] 9.1 mg/dL 8.5-10.1 [facility] Work Phone: Serum or plasma creatinine m easurement (mass/volume)on 11-10-2021 Creatinine [Mass/Vol] 1.01 mg/dL 0.55-1.02 [facility] Work Phone: Comment on above: The validity of the calculated GFR & GFRAA in patients over 70 years has not been determined. Clinical correlation is essential. Serum or plasma urea nitroge n measurement (mass/volume)on 11-10-2021 Urea nitrogen [Mass/Vol] 15 mg/dL 7-18 [facility] Work Phone: Thin prep Papanicolaou smear with manual screeningon 11-10-2021 Thin prep Papanicolaou smear with manual screening 6 5-15 [facility] Work Phone: Whole blood hemoglobin A1c/t otal hemoglobin ratio (mass fraction)on 11-10-2021 HbA1c (Bld) [Mass fraction] 8.0 % 3.8-5.6 [facility] Work Phone: Comment on above: Normal < 5.7 % Predi abetic 5.7 - 6.4 % Diabetic >or= 6.5 % Please note range changes. Glucose Glucometer (BldC) [M ass/Vol]on 09-25-2021 Glucose [Mass/Vol] 136 mg/dL 70-110 [facility] Work Phone: Comment on above: MANAGEMENT OF PATIEN T CARE PER NURSING PROTOCOL Basophil percentageon 2020 WBC (Bld) [#/Vol] 7.1 10*3/uL 4.4-11.0 [facility] Work Phone: Blood erythrocytes count (nu mber/volume)on 08-07-2021 RBC (Bld) [#/Vol] 4.56 10*6/uL 4.2-5.4 [facility] Work Phone: Blood hemoglobin measurement (mass/volume)on 08-07-2021 Hemoglobin (Bld) [Mass/Vol] 12.0 g/dL 12.0-15.0 [facility] Work Phone: Blood platelet mean volumeon 08-07-2021 Platelet mean volume (Bld) [Entitic vol] 9.9 fL 6.2-12.0 [facility] Work Phone: Determination of erythrocyte mean corpuscular volume (MCV)on 08-07-2021 MCV (RBC) [Entitic vol] 86.8 fL 81-99 [facility] Work Phone: Hematocrit Auto (Bld) [Volum e fraction]on 08-07-2021 Hematocrit (Bld) [Volume fraction] 39.6 % 37-47 [facility] Work Phone: Laboratory - Hematology and Cell countson 08-07-2021 Erythrocyte distribution width (RBC) [Entitic vol] 47.4 fL 35.1-43.9 [facility] Work Phone: Erythrocyte distribution width (RBC) [Ratio] 15.2 % 11.6-14.6 [facility] Work Phone: MCH (RBC) [Entitic mass] 26.3 pg 27.0-32.0 [facility] Work Phone: MCHC Auto (RBC) [Mass/Vol]on 08-07-2021 MCHC (RBC) [Mass/Vol] 30.3 g/dL 32-36 [facility] Work Phone: Platelets bldon 08-07-2021 Platelets (Bld) [#/Vol] 291 10*3/uL 150-450 [facility] Work Phone: Provider Note - ED v3on [...] made to minimize errors. Minor errors in monotype machinist may be present. Please call if questions.. [...] From Triage - ED 21-May-2021 20:35 Normal [facility] VAS LAB Venous Duplex Ultra sound DVTon 05-22-2021 VAS LAB Venous [place] [address] [phone], Vascular Lab Report Lower Venous Duplex Ultrasound Patient Name: FLEX Hernández Physician: [id number] Hector Vegas MD Study Date: 05/22/2021 Referring Physician: [id number] SILVANA HENDERSON MRN/PID: [id number] PCP: Accession/Order#: [id number] CC Report to: Date of : 1960 Technologist: Gladis Campbell RVT Gender: F Technologist 2: Admission Status: Outpatient Location Performed: [facility] Diagnosis/ICD: M79.605-Pain in left leg; M79.89-Left leg swelling Procedure/CPT: 78074 Peripheral venous duplex scan for DVT Limited-[id number] Pertinent History: Leg pain and LE Edema. [...] Spontaneous/Phasic Peroneal Yes None PTV Yes None [id number] Hector Vegas MD Final Normal [facility] Triage - EDon 05-21-2021 Triage - ED [...] Updated: 21-May-2021 20:40 by Demetrio Cerda (SAM) [facility] BASIC METABOLIC PANELon - Anion gap [Moles/Vol] 13 mmol/L Normal 10 - 20 [facility] Comment on above: Performed By: #### B MP #### [address] [address] Calcium [Mass/Vol] 9.4 mg/dL Normal 8.6 - 10.3 [facility] Comment on above: Performed By: #### B MP #### [address] [address] Chloride [Moles/Vol] 96 mmol/L Low 98 - 107 [facility] Comment on above: Performed By: #### B MP #### [address] [address] Creatinine [Mass/Vol] 0.92 mg/dL Normal 0.50 - 1.05 [facility] Comment on above: Performed By: #### B MP #### [address] [address] GFR- AM. >60 Normal >60 [facility] Comment on above: Result Comment: CALC ULATIONS OF ESTIMATED GFR ARE PERFORMED USING THE MDRD STUDY EQUATION FOR THE IDMS-TRACEABLE CREATININE METHODS. CLIN CHEM 2007;53:766-72 Performed By: #### B MP #### [address] [address] GFR-NON AM. >60 Normal >60 [facility] Comment on above: Performed By: #### B MP #### [address] [address] Glucose [Mass/Vol] 342 mg/dL High 74 - 99 [facility] Comment on above: Performed By: #### B MP #### [address] [address] HCO3 (Bld) [Moles/Vol] 28 mmol/L Normal 21 - 32 [facility] Comment on above: Performed By: #### B MP #### [address] [address] Potassium [Moles/Vol] 4.8 mmol/L Normal 3.5 - 5.3 [facility] Comment on above: Performed By: #### B MP #### [address] [address] Sodium [Moles/Vol] 132 mmol/L Low 136 - 145 [facility] Comment on above: Performed By: #### B MP #### [address] [address] Urea nitrogen [Mass/Vol] 18 mg/dL Normal 6 - 23 [facility] Comment on above: Performed By: #### B MP #### [address] [address] GLUCOSE-POCTon 02-13-2021 Glucose [Mass/Vol] 332 mg/dL High 74 - 99 [facility] Comment on above: Performed By: #### G TAYE #### [address] [address] Provider Note - ED v2on 01-27 Provider [...] Alert and oriented x4, GCS 15 , molecular genetic pathologist II-XII grossly intact. 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 [...] SIGNS: T PRBP SpO2O2(LPM) %FiO2 Method 13-Feb-2021 03:12:[id number] 92 room air, no respiratory support 13-Feb-2021 01:16:00-2868759/59 92 room air, no respiratory support 13-Feb-2021 00:01:00-36.31509802/76 95 room air, no respiratory support MEDICAL [...] Referenced From Triage - ED 13-Feb-2021 00:01 [facility] Risk Screen - Adult Emergenc yon 02-13-2021 [...] instruction; written material Cultural Considerationsnone Developmental Considerationsnone Latter Day Considerationsnone Learning Assessment (Other Learner): Learning Assessment (Other Learner): Other learner availableno Pressure Injury/TB/Substance: Pressure Injury: Do you have a coughno Substance Use Current or Former Historynever: Cigarette/Tobacco, e-Cigarette/Vaping, Alcohol, Street Drugs Admission Risk Screen: Significant IndicatorsComplete CAGE: CAGE: Is this an injured patient at a Tra[place] Center [place]): no Electronic Signatures: Tigist Yoder (RN) (Signed 13-Feb-2021 00:07) Authored: Preferred Language, Advanced Directives, Family Violence Adult, Learning Assessment (Patient), Learning Assessment (Other Learner), Pressure Injury/TB/Substance, Pressure Injury, CAGE Last Updated: 13-Feb-2021 00:07 by Tigist Yoder (RN) [facility] Triage - EDon 02-13-2021 Triage - ED Chart Review: ARRIVAL INFORMATION Mode of Arrival: private vehicle CHIEF COMPLAINT FLEX TABARES is a Female patient with a chief complaint of hyperglycemia (Patient states, My sugar has been up the past 4-5 days. It's so high my meter wont register. I had a steroid shot today around 2pm. 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 BS at 6pm: 399, 7:30pm: HI, 8:30PM: HI, 9:15pm: 492, 1010pm: 409. In triage: 332). Triage Date/Time: 13-Feb-2021 00:01 ROSALBA: 3V Vital Signs: Temperature: 97.3F ( 36.2C) taken oral Blood Pressure: 125/76 Mean: Heart Rate: 64 Respiratory Rate: 18 Pulse Oximetry: 95% on room air, no respiratory support. [place] Coma Scale: Best Eye Response: (E4) spontaneous [...] Updated: 13-Feb-2021 00:06 by Tigist Yoder (SAM) [facility] OPERATIVE PROCEDURESon 02-10 OPERATIVE PROCEDURES [facility] OPERATIVE REPORT NAME ACCOUNT SEX AGE ADMIT DISCHARGE PT MED. RECORD# NUMBER DATE DATE TYPE FLEX WOOTEN [id number] F 59 02/08/20 02/08/20 2 E. [id number] ROOM: [facility] DATE OF : 1960 DICTATING PHYSICIAN: Pb Drummond DATE OF SURGERY: February 08, 2020 SURGEON: Pb Drummond MD OPENER TENDER: None. ANESTHESIOLOGIST: Daphney Velasquez MD ANESTHETIC: Local [...] Pb Drummond MD 02/08/20 13:43 JOB #: [id number] Transcribed By: oygesh 02/09/20 07:13 Electronically signed by: E-SIGN DR. PB DRUMMOND M.D. 02/11/20 09:08 Page 2 of 2 FLEX WOOTEN. Operative Report Normal [facility] CNOVon 05-09-2019 CNOV Office Visit (RHBATH ) FLEX WOOTEN ([id number]) 1960 F Date Time Provider Department 05/09/19 [...] for [address] Musa at [facility]. Takes oxycodone 2 times daily. Left knee [...] Date - DVT (deep venous thrombosis) ([facility]) 2014 post knee replacement - Fibromyalgia - Hemorrhage of gastrointestinal tract, unspecified - Hemorrhage of rectum and anus - Internal hemorrhoids without mention of complication - Other forms of migraine - Other unspecified back disorder - Pulmonary embolism ([facility]) 2014 PAST SURGICAL HISTORY Procedure Laterality Date - COLONOSCOP W/ OR W/O [facility] SPEC 2002 Colonoscopy - INTRATHECAL BLOCK [...] left knee -- meniscus repair; Dr. Weller, [facility] - REMOVAL OF OVARY(S) - REMOVE [...] AJ 1:160, CK 272 Negative aside DNA, CHANNEL DIRECTOR, SSA, SSB, rheumatoid factor, CCP, Acevedo Low [...] Jackie Rojas MD Referring Provider: JACKIE ROJAS [[id number]] Allergies As of Date: 05/09/2019 Noted Allergy [...] by JACKIE ROJAS MD on 05/09/19 [facility] PROGRESSon 05-09-2019 PROGRESS HNO ID: [id number] Author: Jackie Rojas Service: ? Author Type: [...] for [address] Musa at [facility]. Takes oxycodone 2 times daily. Left knee [...] Date - DVT (deep venous thrombosis) ([facility]) 2014 post knee replacement - Fibromyalgia - Hemorrhage of gastrointestinal tract, unspecified - Hemorrhage of rectum and anus - Internal hemorrhoids without mention of complication - Other forms of migraine - Other unspecified back disorder - Pulmonary embolism ([facility]) 2014 PAST SURGICAL HISTORY Procedure Laterality Date - COLONOSCOP W/ OR W/O [facility] SPEC 2002 Colonoscopy - INTRATHECAL BLOCK [...] AJ 1:160, CK 272 Negative aside DNA, CHANNEL DIRECTOR, SSA, SSB, rheumatoid factor, CCP, Acevedo Low [...] fail to improve. Jackie Rojas MD Normal [facility] AJ by IFA Screenon 04-12-20 19 AJ by IFA Screen SEE BELOW Normal [facility] Comment on above: Result Comment: AJ Positive AB NEGAT Normal range : negative at <1:80 serum dilution. AJ Titer 1:160 AB NEGAT AJ Pattern Homogeneous Performing Laboratory: [facility] [address] [place] [address] Performed By: #### R F1 #### [facility] [address] [place], [place] [address] CCP Antibody, IgGon 04-12-20 19 CCP Antibody, IgG <15 Normal <20 [facility] Comment on above: Result Comment: < 20 units: Negative 20-39 units: Weak Positive 40-59 units: Moderate Positive > 60 units: Strong Positive The following results were obtained with the [employer] QUANTA Lite CCP3 IgG VENESSA. Anti-CCP values obtained with different manufacturers' assay methods may not be used interchangeably. The magnitude of the reported IgG levels cannot be correlated to an endpoint titer. Performing Laboratory: [facility] [address] [place] [address] Performed By: #### R F1 #### [place] [id number] DS-DNA Abon 04-12-2019 DS-DNA Ab SEE BELOW Normal [facility] Comment on above: Result Comment: DNA Antibody w/ Conf. <12 <30 IU/mL Negative for ds DNA Antibodies Negative: <30 IU/mL Equivocal: 30-74 IU/mL Positive: >74 IU/mL Performing Laboratory: [facility] [address] [place] [address] Performed By: #### R F1 #### [place] [address] CHANNEL DIRECTOR Antibodyon 04-12-2019 CHANNEL DIRECTOR Antibody <0.2 Normal <1.0 [facility] Comment on above: Result Comment: Nega tive Negative: <1.0 AI Positive: >0.9 AI Performing Laboratory: [facility] [address] [place] [address] Performed By: #### R F1 #### [address] [address] Sjogren Antibodieson 019 Sjogren Antibodies SEE BELOW Normal [facility] Comment on above: Result Comment: SSA Antibody <0.2 <1.0 AI Negative Negative: <1.0 AI Positive: >0.9 AI SSB Antibody <0.2 <1.0 AI Negative Negative: <1.0 AI Positive: >0.9 AI Performing Laboratory: [facility] [address] [place] [address] Performed By: #### R F1 #### [facility] [address] [place], [place] [address] Acevedo Abs IgGon 04-12-2019 Acevedo Abs IgG SEE BELOW Normal [facility] Comment on above: Result Comment: Sm A ntibody <0.2 <1.0 AI Negative Negative: <1.0 AI Positive: >0.9 AI Performing Laboratory: [facility] [address] [place] [address] Performed By: #### R F1 #### [facility] [address] [place], [place] [address] Total 25-OH Vitamin Don 03-29 Total 25-OH Vitamin D 31.3 ng/mL Normal 30.0-100.0 [facility] Comment on above: Performed By: #### R F1 #### [address] [address] CNOVon 04-09-2019 CNOV Office Visit (RHBATH ) FLEX WOOTEN ([id number]) 1960 F Date Time Provider Department 04/09/19 [...] for [address] Musa at [facility]. Takes oxycodone 2 times daily. Left knee [...] Date - DVT (deep venous thrombosis) ([facility]) 2013 post knee replacement - Fibromyalgia - Hemorrhage of gastrointestinal tract, unspecified - Hemorrhage of rectum and anus - Internal hemorrhoids without mention of complication - Other forms of migraine - Other unspecified back disorder - Pulmonary embolism ([facility]) 2013 PAST SURGICAL HISTORY Procedure Laterality Date - COLONOSCOP W/ OR W/O [facility] SPEC 2002 Colonoscopy - INTRATHECAL BLOCK [...] file Gets together: Not on file Attends lutheran service: Not on file Active member of [...] SCREEN - DNA ANTIBODY DS BLD - CHANNEL DIRECTOR ANTIBODY BLOOD - ACEVEDO IGG AB - [...] Jackie Rojas MD Referring Provider: RICA PADGETT [[id number]] Allergies As of Date: 04/09/2019 Noted Allergy [...] Order(s):AJ BY IFA SCREEN [SQANAIFS] Order #: [id number] FUTURE DNA ANTIBODY DS BLD [SQDNAAB] Order #: [id number] FUTURE CHANNEL DIRECTOR ANTIBODY BLOOD [SQARNP] Order #: [id number] FUTURE ACEVEDO IGG AB [SQSMAB] Order #: [id number] FUTURE SJOGREN ABS SSA/SSB [SQXSSAB] Order #: [id number] FUTURE RHEUMATOID FACTOR BL [SQRF] Order #: [id number] FUTURE CCP ANTIBODY IGG [SQCCP] Order #: [id number] FUTURE CK CREATINE KINASE [SQCK] Order #: [id number] FUTURE VITAMIN D 25 HYDROXY [SQVITD] Order #: [id number] FUTURE FERRITIN BLD [SQFERR] Order #: [id number] FUTURE IRON + TIBC [SQIRON] Order #: [id number] FUTURE UA WITH CULTURE IF INDICATED [SQUACII] Order #: [id number] FUTURE CREATININE RANDOM UR [SQUCRR] Order #: [id number] FUTURE PROTEIN RANDOM UR [SQUTPR] Order #: [id number] FUTURE CBC + DIFF [SQCBCDIF] Order #: [id number] FUTURE COMP METABOLIC PANEL [SQCMP] Order #: [id number] FUTURE XR HAND GENERAL 3V PA/LAT/OBL LT [[id number]] Order #: [id number] FUTURE XR HAND GENERAL 3V PA/LAT/OBL RT [[id number]] Order #: [id number] FUTURE XR FOOT GENERAL 3V AP/LAT/OBL LT [[id number]] Order #: [id number] FUTURE XR FOOT GENERAL 3V AP/LAT/OBL RT [[id number]] Order #: [id number] FUTURE XR SACROILIAC JOINTS 2V AP PELVIS/FERGUESON [[id number]] Order #: [id number] FUTURE XR LUMBAR LIMITED 2V AP/LAT [[id number]] Order #: [id number] FUTURE Prescriptions as of 04/09/2019 Sig: ATENOLOL [...] by JACKIE ROJAS MD on 04/09/19 Normal [facility] CPKon 04-09-2019 CK [Catalytic activity/Vol] 272 U/L High 26-192 [facility] Comment on above: Performed By: #### C K #### [address] [address] Comprehensive Panelon 2018 ALP [Catalytic activity/Vol] 87 U/L Normal 45-117 [facility] Comment on above: Performed By: #### P 14 #### [address] [address] Bilirubin [Mass/Vol] 0.2 mg/dL Normal 0.2-1.0 [facility] Comment on above: Performed By: #### P 14 #### [address] [address] Protein [Mass/Vol] 7.0 g/dL Normal 6.4-8.2 [facility] Comment on above: Performed By: #### P 14 #### [facility] [address] [place], [place] [address] ALT [Catalytic activity/Vol] 43 U/L Normal 12-78 [facility] Comment on above: Performed By: #### P 14 #### [facility] [address] [place], [place] [address] Creatinine [Mass/Vol] 0.74 mg/dL Normal 0.51-0.95 [facility] Comment on above: Performed By: #### P 14 #### [facility] [address] [place], [place] [address] AST [Catalytic activity/Vol] 22 U/L Normal 15-37 [facility] Comment on above: Performed By: #### P 14 #### [facility] [address] [place], [place] [address] Albumin [Mass/Vol] 3.6 g/dL Normal 3.4-5.0 [facility] Comment on above: Performed By: #### P 14 #### [facility] [address] [place], [place] [address] Anion gap [Moles/Vol] 9 mmol/L Normal 8-16 [facility] Comment on above: Performed By: #### P 14 #### [facility] [address] [place], [place] [address] CO2 [Moles/Vol] 31 mmol/L Normal 21-32 [facility] Comment on above: Performed By: #### P 14 #### [facility] [address] [place], [place] [address] Urea nitrogen [Mass/Vol] 16 mg/dL Normal 7-18 [facility] Comment on above: Performed By: #### P 14 #### [facility] [address] [place], [place] [address] Calcium [Mass/Vol] 8.9 mg/dL Normal 8.5-10.1 [facility] Comment on above: Performed By: #### P 14 #### [facility] [address] [place], [place] [address] Glucose [Mass/Vol] 124 mg/dL High 70-99 [facility] Comment on above: Performed By: #### P 14 #### [facility] [address] [place], [place] [address] Chloride [Moles/Vol] 100 mmol/L Normal 98-107 [facility] Comment on above: Performed By: #### P 14 #### [facility] [address] [place], [place] [address] Potassium [Moles/Vol] 4.4 mmol/L Normal 3.5-5.1 [facility] Comment on above: Performed By: #### P 14 #### [facility] [address] [place] [address] Sodium [Moles/Vol] 136 mmol/L Normal 136-145 [facility] Comment on above: Performed By: #### P 14 #### [facility] [address] [place] [address] Creatinine,Urineon 9 Creatinine,Urine 71.9 mg/dL Normal [facility] Comment on above: Performed By: #### C REAU #### [facility] [address] [place] [address] Ferritinon 04-09-2019 Ferritin [Mass/Vol] 11.80 ng/mL Normal 8.00-252.00 [facility] Comment on above: Performed By: #### F ERR #### [place] [address] Hemogram/Diffon 04-09-2019 Abs Immature Grans 0.03 thou/cmm Normal 0.00-0.05 [facility] Comment on above: Performed By: #### C BCD1 #### [facility] [address] [place] [address] Abs Neut (ANC) 4.15 thou/cmm Normal 1.56-6.13 [facility] Comment on above: Performed By: #### C BCD1 #### [facility] [address] [place] [address] Abs. Baso 0.06 thou/cmm Normal 0.01-0.08 [facility] Comment on above: Performed By: #### C BCD1 #### [facility] [address] [place], [place] [address] Abs. Amelia 0.43 thou/cmm Normal 0.27-0.70 [facility] Comment on above: Performed By: #### C BCD1 #### [facility] [address] [place], [place] [address] Basophils/100 WBC (Bld) 0.9 % Normal [facility] Comment on above: Performed By: #### C BCD1 #### [facility] [address] [place], [place] [address] Eosinophils (Bld) [#/Vol] 0.18 thou/cmm Normal 0.00-0.31 [facility] Comment on above: Performed By: #### C BCD1 #### [facility] [address] [place] [address] Eosinophils/100 WBC (Bld) 2.6 % Normal [facility] Comment on above: Performed By: #### C BCD1 #### [facility] [address] [place] [address] Erythrocyte distribution width (RBC) [Ratio] 13.4 % Normal 11.7-14.4 [facility] Comment on above: Performed By: #### C BCD1 #### [facility] [address] [place], [place] [address] Hematocrit (Bld) [Volume fraction] 39.8 % Normal 34.1-44.9 [facility] Comment on above: Performed By: #### C BCD1 #### [facility] [address] [place], [place] [address] Hemoglobin (Bld) [Mass/Vol] 12.5 g/dL Normal 11.2-15.7 [facility] Comment on above: Performed By: #### C BCD1 #### [facility] [address] [place] [address] Immature Grans 0.40 % Normal [facility] [place] [facility] Comment on above: Performed By: #### C BCD1 #### [facility] [address] [place] [address] Lymphocytes (Bld) [#/Vol] 2.09 thou/cmm Normal 1.18-3.74 [facility] Comment on above: Performed By: #### C BCD1 #### [facility] [address] [place], [place] [address] Lymphocytes/100 WBC (Bld) 30.1 % Normal [facility] Comment on above: Performed By: #### C BCD1 #### [facility] [address] [place], [place] [address] MCH (RBC) [Entitic mass] 26.7 pg Normal 25.6-32.2 [facility] Comment on above: Performed By: #### C BCD1 #### [facility] [address] [place], [place] [address] MCHC (RBC) [Mass/Vol] 31.4 % Low 31.6-34.8 [facility] Comment on above: Performed By: #### C BCD1 #### [facility] [address] [place] [address] MCV (RBC) [Entitic vol] 85.0 fL Normal 79.4-94.8 [facility] Comment on above: Performed By: #### C BCD1 #### [facility] [address] [place], [place] [address] Monocytes/100 WBC (Bld) 6.2 % Normal [facility] Comment on above: Performed By: #### C BCD1 #### [facility] [address] [place], [place] [address] Platelet mean volume (Bld) [Entitic vol] 9.8 fL Normal 9.4-12.3 [facility] Comment on above: Performed By: #### C BCD1 #### [facility] [address] [place], [place] [address] Platelets (Bld) [#/Vol] 204 thou/cmm Normal 182-369 [facility] Comment on above: Performed By: #### C BCD1 #### [address] [address] RBC (Bld) [#/Vol] 4.68 mil/cmm Normal 3.93-5.22 [facility] Comment on above: Performed By: #### C BCD1 #### [facility] [address] [place], [place] [address] RDW SD 41.3 fl Normal 36.4-46.3 [facility] Comment on above: Performed By: #### C BCD1 #### [facility] [address] [place], [place] [address] Seg Neutrophil 59.8 % Normal [facility] [place] [facility] Comment on above: Performed By: #### C MANNYD1 #### [facility] [address] [place] [address] WBC (Bld) [#/Vol] 6.94 thou/cmm Normal 3.98-10.04 [facility] Comment on above: Performed By: #### C BCShayla #### [facility] [address] [place] [address] Iron % Saturationon 04-09-20 19 Iron % Saturation 17 % Low 20-55 [facility] Comment on above: Performed By: #### I ANAYELI #### [facility] [address] [place] [address] Iron Binding Cap. 369 ug/dL Normal 250-450 [facility] Comment on above: Performed By: #### I PHILOMENAS #### [place] [address] Iron Serum 61 ug/dL Normal 50-170 [facility] Comment on above: Performed By: #### I ANAYELI #### [place] [address] MDRD GFRon 04-09-2019 GFR/1.73 sq M predicted among non-blacks MDRD (S/P/Bld) [Vol rate/Area] mL/min/{1.73_m2} Normal >60mL/min/1 .73m2 [facility] Comment on above: Result Comment: If t he patient is , multiply the result by 1.210. Performed By: #### G FR #### [facility] [address] [place] [address] PROGRESSon 04-09-2019 PROGRESS HNO ID: [id number] Author: Jackie Rojas Service: ? Author Type: [...] for [address] Musa at [facility]. Takes oxycodone 2 times daily. Left knee [...] Date - DVT (deep venous thrombosis) ([facility]LY [facility]) 2013 post knee replacement - Fibromyalgia - Hemorrhage of gastrointestinal tract, unspecified - Hemorrhage of rectum and anus - Internal hemorrhoids without mention of complication - Other forms of migraine - Other unspecified back disorder - Pulmonary embolism ([facility]) 2014 PAST SURGICAL HISTORY Procedure Laterality Date - COLONOSCOP W/ OR W/O [facility] SPEC 2002 Colonoscopy - INTRATHECAL BLOCK [...] file Gets together: Not on file Attends [employer] service: Not on file Active member of [...] SCREEN - DNA ANTIBODY DS BLD - CHANNEL DIRECTOR ANTIBODY BLOOD - ACEVEDO IGG AB - [...] discuss lab results. Jackie Rojas MD Normal [facility] Rheumatoid Factoron 04-09-20 19 Rheumatoid Factor < 10.0 Normal 0.0-15.0 [facility] Comment on above: Performed By: #### R F1 #### [place] [address] Urinalysis, reflexon 019 Reflex Comment see below Normal [facility] [place] [facility] Comment on above: Result Comment: Refl ex to culture is not indicated based on established laboratory criteria. Performed By: #### U RIN #### [place] [address] Bacteria LM.HPF (Urine sed) [#/Area] NONE Normal None [facility] Comment on above: Performed By: #### U RIN #### [address] [place] [address] Ep Cells Urine 0.8 /hpf Normal 0.0-5.0 [facility] [place] [facility] Comment on above: Performed By: #### U RIN #### [place] [address] Hyaline Cast 0.7 /lpf Normal 0.0-1.0 [facility] Comment on above: Performed By: #### U RIN #### [place] [address] RBC LM.HPF (Urine sed) [#/Area] 0.6 /[HPF] Normal 0.0-5.0 [facility] Comment on above: Performed By: #### U RIN #### [place] [address] WBC, reflex 0.90 /hpf Normal 0.00-5.00 [facility] Comment on above: Performed By: #### U RIN #### [place] [address] Appearance (U) CLEAR Normal [facility] [place] [facility] Comment on above: Performed By: #### U RIN #### [place] [address] Bilirubin (U) [Mass/Vol] Negative Normal Negative [facility] Comment on above: Performed By: #### U RIN #### [place] [address] Color (U) YELLOW Normal [facility] Comment on above: Performed By: #### U RIN #### [place] [address] Glucose Ql (U) Negative Normal Negative [facility] [place] [facility] Comment on above: Performed By: #### U RIN #### [place] [address] Hemoglobin,Urine Negative Normal Negative [facility] Comment on above: Performed By: #### U RIN #### [place] [address] Ketone Urine Negative Normal Negative [facility] Comment on above: Performed By: #### U RIN #### [facility] [address] [place] [address] Leukocyte esterase Test strip Ql (U) TRACE Abnormal Negative [facility] Comment on above: Performed By: #### U RIN #### [facility] [address] [place] [address] Nitrite reflex Negative Normal Negative [facility] [place] [facility] Comment on above: Performed By: #### U RIN #### [facility] [address] [place] [address] pH (U) 5.0 [pH] Normal 5.0-8.0 [facility] Comment on above: Performed By: #### U RIN #### [facility] [address] [place] [address] Protein (U) [Mass/Vol] Negative Normal Negative [facility] Comment on above: Performed By: #### U RIN #### [facility] [address] [place] [address] Specific [place], Ur 1.017 Normal 1.005-1.030 [facility] Comment on above: Performed By: #### U RIN #### [facility] [address] [place] [address] Urobilinogen,Ur 0.2 EU/dL Normal 0.2-1.0 [facility] Comment on above: Performed By: #### U RIN #### [facility] [address] [place] [address] Urine Proteinon 04-09-2019 Protein Ql (U) < 5.0 Normal 0.0-11.9 [facility] [place] [facility] Comment on above: Performed By: #### U P #### [facility] [address] [place] [address] XR FOOT 3V AP/LAT/OBL LTon 0 04-09-2019 [...] degenerative arthritis at the first MTP joints. Alarm Installer: JUANITA Transcribe Date/Time: Apr 12 2019 2:06P Dictated by : YANETH PATEL MD This examination was interpreted and the report reviewed and electronically signed by: YANETH PATEL MD on Apr 12 2019 2:08PM EST Normal [facility] XR FOOT 3V AP/LAT/OBL RTon [...] degenerative arthritis at the first MTP joints. Alarm Installer: Niko Niko Transcribe Date/Time: Apr 12 2019 2:06P Dictated by : YANETH PATEL MD This examination was interpreted and the report reviewed and electronically signed by: YANETH PATEL MD on Apr 12 2019 2:08PM EST Normal [facility] XR HAND 3V PA/LAT/OBL LTon [...] no abnormal calcifications. IMPRESSION: Within normal limits. Alarm Installer: JUANITA Transcribe Date/Time: Apr 12 2019 2:04P Dictated by : YANETH PATEL MD This examination was interpreted and the report reviewed and electronically signed by: YANETH PATEL MD on Apr 12 2019 2:06PM EST Normal [facility] XR HAND 3V PA/LAT/OBL RTon 0 04-09-2019 [...] no abnormal calcifications. IMPRESSION: Within normal limits. Alarm Installer: [facility] Transcribe Date/Time: Apr 12 2019 2:04P Dictated by : YANETH PATEL MD This examination was interpreted and the report reviewed and electronically signed by: YANETH PATEL MD on Apr 12 2019 2:06PM EST Normal [facility] XR LUMBAR 2V AP/LATon 2018 [...] IMPRESSION: Scoliosis, degenerative spondylosis, and postoperative changes. Alarm Installer: JUANITA Transcribe Date/Time: Apr 12 2019 2:09P Dictated by : YANETH PATEL MD This examination was interpreted and the report reviewed and electronically signed by: YANETH PATEL MD on Apr 12 2019 2:11PM EST Normal [facility] XR SI JTS 2V AP PELV/FERGUSO Non [...] degenerative changes at the right sacroiliac joint. Alarm Installer: [facility] Transcribe Date/Time: Apr 12 2019 2:08P Dictated by : YANETH PATEL MD This examination was interpreted and the report reviewed and electronically signed by: YANETH PATEL MD on Apr 12 2019 2:09PM EST Normal [facility] Office Visit: Annualon 07-25 Dietary management education, guidance, and counseling (procedure) yes Invalid Interpretation Code [facility] Documentation of current medications (procedure) Done Invalid Interpretation Code [facility] Tobacco smoking status NHIS Never Invalid Interpretation Code [facility] Tobacco use CPHS Never smoker Invalid Interpretation Code [facility] Lab Report: Basic Metabolic Profile (BMP)on 12-09-2016 Anion gap 10 mmol/L Invalid Interpretation Code 5-15 [facility] BUN/Creatinine Ratio 18.5 RATIO Invalid Interpretation Code 10-20 [facility] Calcium 8.9 mg/dL Invalid Interpretation Code 8.5-10.1 [facility] Chloride 98 mmol/L Invalid Interpretation Code 98-107 [facility] CO2 32.0 mmol/L Invalid Interpretation Code 21.0-32.0 [facility] Creatinine 0.81 mg/dL Invalid Interpretation Code 0.55-1.02 [facility] eGFR (non-black) 77 mL/min/{1.73_m2} Invalid Interpretation Code >60 [facility] eGFR (non-black) 93 mL/min/{1.73_m2} Invalid Interpretation Code >60 [facility] Glucose mass conc 121 mg/dL High 70-110 [facility] Potassium molar conc 4.3 mmol/L Invalid Interpretation Code 3.5-5.1 [facility] Sodium 140 mmol/L Invalid Interpretation Code 136-145 [facility] Urea nitrogen 15 mg/dL Invalid Interpretation Code 7-18 [facility] Lab Report: Lipaseon 017 LIPASE 157 U/L Invalid Interpretation Code [address] [facility] Lab Report: Liver Profileon 12-09-2016 Alanine aminotransferase (ALT) 58 U/L Invalid Interpretation Code 12-78 [facility] Albumin 3.7 g/dL Invalid Interpretation Code 3.4-5.0 [facility] Alkaline phosphatase (ALP) 87 U/L Invalid Interpretation Code 45-117 [facility] Aspartate aminotransferase (AST) 37 U/L Invalid Interpretation Code 15-37 [facility] Bilirubin (direct) 0.07 mg/dL Invalid Interpretation Code 0.00-0.30 [facility] Bilirubin (total) 0.30 mg/dL Invalid Interpretation Code 0.20-1.00 [facility] Globulin 3.5 g/dL Invalid Interpretation Code 2.3-3.5 [facility] Protein 7.2 g/dL Invalid Interpretation Code 6.4-8.2 [facility] Office Visit: RUQ pain, dila mary anne CBD, no GS on U/Son 12-09-2016 Fall risk assessment No Invalid Interpretation Code [facility] Office Visit: RUQ pain, dila mary anne CBD, no GS on U/Son 08-29-2015 Breast Mammogram screening Normal Bilateral Invalid Interpretation Code [facility] General categories [Interpretation] of Cervical or vaginal smear or scraping by Cyto stain Normal Invalid Interpretation Code [facility] No Panel Informationon 03-04 [facility] Vital Signs Date Time Vital Sign Value Performing Clinician Facility 09-06-2023 13:50-0500 Body temperature 97 [degF] Renita Thomae DO Work Phone: [facility] 09-06-2023 13:50-0500 Diastolic blood pressure 62 mm[Hg] Renita Thomae DO Work Phone: [facility] 09-06-2023 13:50-0500 Heart rate 59 /min Renita Thomae DO Work Phone: [facility] 09-06-2023 13:50-0500 Respiratory rate 16 /min Renita Thomae DO Work Phone: [facility] 09-06-2023 13:50-0500 SaO2% (BldA) [Mass fraction] 94 % Renita Thomae DO Work Phone: [facility] 09-06-2023 13:50-0500 Systolic blood pressure 111 mm[Hg] Renita Thomae DO Work Phone: [facility] 02-24-2023 15:16-0400 Body temperature 97.7 [degF] DR PJ MAHONEY MD [facility] 02-24-2023 15:16-0400 Diastolic Blood Pressure Non-Invasive [address] PJ MAHONEY MD [facility] 02-24-2023 15:16-0400 Heart rate 66 /min DR PJ MAHONEY MD [facility] 02-24-2023 15:16-0400 Reason For Taking VItal Signs DR PJ MAHONEY MD [facility] 02-24-2023 15:16-0400 Respiratory rate 16 /min DR PJ MAHONEY MD [facility] 02-24-2023 15:16-0400 Systolic Blood Pressure Non-Invasive [address] PJ MAHONEY MD [facility] 02-24-2023 11:13-0400 Body temperature 98.42 [degF] DR PJ MAHONEY MD [facility] 02-24-2023 11:13-0400 Diastolic Blood Pressure Non-Invasive [address] PJ MAHONEY MD [facility] 02-24-2023 11:13-0400 Heart rate 71 /min DR PJ MAHONEY MD [facility] 02-24-2023 11:13-0400 Reason For Taking VItal Signs DR PJ MAHONEY MD [facility] 02-24-2023 11:13-0400 Respiratory rate 16 /min DR PJ MAHONEY MD [facility] 02-24-2023 11:13-0400 Systolic Blood Pressure Non-Invasive [address] PJ MAHONEY MD [facility] 02-24-2023 09:07-0400 Heart rate 84 /min DR PJ MAHONEY MD [facility] 02-24-2023 08:58-0400 Diastolic Blood Pressure Non-Invasive [address] PJ MAHONEY MD [facility] 02-24-2023 08:58-0400 Systolic Blood Pressure Non-Invasive [address] PJ MAHONEY MD [facility] 02-24-2023 08:12-0400 Body temperature 97.88 [degF] DR PJ MAHONEY MD [facility] 02-24-2023 08:12-0400 Heart rate 74 /min DR PJ MAHONEY MD [facility] 02-24-2023 08:12-0400 Reason For Taking VItal Signs DR PJ MAHONEY MD [facility] 02-24-2023 08:12-0400 Respiratory rate 18 /min DR PJ MAHONEY MD [facility] 02-23-2023 22:43-0400 Heart rate 60 /min DR PJ MAHONEY MD [facility] 02-23-2023 20:04-0400 Heart rate 64 /min DR PJ MAHONEY MD [facility] 02-23-2023 14:32-0400 Heart rate 82 /min DR PJ MAHONEY MD [facility] 02-23-2023 11:40-0400 Heart rate 70 /min DR PJ MAHONEY MD [facility] 02-22-2023 14:40-0400 Body height 162.[address] PJ MAHONEY MD [facility] 02-22-2023 14:40-0400 Body weight [address] PJ MAHONEY MD [facility] 02-22-2023 14:40-0400 Body weight 41.61 kg/m2 DR PJ MAHONEY MD [facility] 02-22-2023 13:15-0400 Body temperature 96.26 [degF] DR PJ MAHONEY MD [facility] 02-22-2023 12:04-0400 Body temperature 97.7 [degF] DR PJ MAHONEY MD [facility] 02-22-2023 12:00-0400 Respiratory Rate - Anes 3 br/min DR PJ MAHONEY MD [facility] 02-22-2023 11:55-0400 Respiratory Rate - Anes 26 br/min DR PJ MAHONEY MD [facility] 02-22-2023 11:50-0400 Body temperature 96.84 [degF] DR PJ MAHONEY MD [facility] 02-22-2023 11:50-0400 Respiratory Rate - Anes 23 br/min DR PJ MAHONEY MD [facility] 02-22-2023 11:45-0400 Body temperature 96.85 [degF] DR PJ MAHONEY MD [facility] 02-22-2023 11:40-0400 Body temperature 96.89 [degF] DR PJ MAHONEY MD [facility] 02-22-2023 09:31-0400 Body height 162.[address] PJ MAHONEY MD [facility] 02-22-2023 09:31-0400 Body temperature 98.42 [degF] DR PJ MAHONEY MD [facility] 02-22-2023 09:31-0400 Body weight [address] PJ MAHONEY MD [facility] 02-03-2023 13:58-0400 Blood Pressure Cuff Size DR PJ MAHONEY MD [facility] 02-03-2023 13:58-[address] PJ MAHONEY MD [facility] 02-03-2023 13:58-[address] PJ MAHONEY MD [facility] 02-03-2023 13:58-0400 Body height 162.[address] PJ MAHONEY MD [facility] 02-03-2023 13:58-0400 Body weight [address] PJ MAHONEY MD [facility] 02-03-2023 13:58-0400 Body weight 41.61 kg/m2 DR PJ MAHONEY MD [facility] 02-03-2023 13:58-0400 Diastolic Blood Pressure Non-Invasive [address] PJ MAHONEY MD [facility] 02-03-2023 13:58-0400 Heart rate 73 /min DR PJ MAHONEY MD [facility] 02-03-2023 13:58-0400 Systolic Blood Pressure Non-Invasive [address] PJ MAHONEY MD [facility] 09-17-2022 18:10-0500 Body temperature 98 [degF] Dr. Rica Padgett Work Phone: [facility] 09-17-2022 18:10-0500 Diastolic blood pressure 65 mm[Hg] Dr. Rica Padgett Work Phone: [facility] 09-17-2022 18:10-0500 Heart rate 75 /min Dr. Rica Padgett Work Phone: [facility] 09-17-2022 18:10-0500 Respiratory rate 16 /min Dr. Rica Padgett Work Phone: [facility] 09-17-2022 18:10-0500 SaO2% (BldA) [Mass fraction] 901 % Dr. Rica Padgett Work Phone: [facility] 09-17-2022 18:10-0500 Systolic blood pressure 119 mm[Hg] Dr. Rica Padgett Work Phone: [facility] 09-17-2022 11:45-0500 Body height 162.[address] Rica Padgett Work Phone: [facility] 09-17-2022 11:45-0500 Body weight 121.[address] Rica Padgett Work Phone: [facility] 09-16-2022 19:21-0500 Inhaled oxygen flow rate 2 L/min Dr. Rica Padgett Work Phone: [facility] 09-16-2022 19:15-0500 Body mass index (BMI) [Ratio] 46.1 kg/m2 Dr. Rica Padgett Work Phone: [facility] 09-13-2022 10:21-0500 Body mass index (BMI) [Ratio] 42.7 kg/m2 Dr. Rica Padgett Work Phone: [facility] 09-13-2022 10:21-0500 Body temperature 95.4 [degF] Dr. Rica Padgett Work Phone: [facility] 09-13-2022 10:21-0500 Body weight 116.[address] Rica Padgett Work Phone: [facility] 09-13-2022 10:21-0500 Diastolic blood pressure 80 mm[Hg] Dr. Rica Padgett Work Phone: [facility] 09-13-2022 10:21-0500 Heart rate 84 /min Dr. Rica Padgett Work Phone: [facility] 09-13-2022 10:21-0500 Respiratory rate 20 /min Dr. Rica Padgett Work Phone: [facility] 09-13-2022 10:21-0500 SaO2% (BldA) [Mass fraction] 90 % Dr. Rica Pagdett Work Phone: [facility] 09-13-2022 10:21-0500 Systolic blood pressure 137 mm[Hg] Dr. Rica Padgett Work Phone: [facility] 05-19-2022 14:14-0400 Body temperature 95.3 [degF] Dr. Rica Padgett Work Phone: [facility] Work Phone: 05-19-2022 14:14-0400 Diastolic blood pressure 90 mm[Hg] Dr. Rica Padgett Work Phone: [facility] Work Phone: 05-19-2022 14:14-0400 Heart rate 81 /min Dr. Rica Padgett Work Phone: [facility] Work Phone: 05-19-2022 14:14-0400 Respiratory rate 20 /min Dr. Rica Padgett Work Phone: [facility] Work Phone: 05-19-2022 14:14-0400 SaO2% (BldA) [Mass fraction] 91 % Dr. Rica Padgett Work Phone: [facility] Work Phone: 05-19-2022 14:14-0400 Systolic blood pressure 156 mm[Hg] Dr. Rica Padgett Work Phone: [facility] Work Phone: 03-29-2022 09:18-0400 Body mass index (BMI) [Ratio] 42.9 kg/m2 Dr. Rica Padgett Work Phone: [facility] Work Phone: 03-29-2022 09:18-0400 Body temperature 96.3 [degF] Dr. Rica Padgett Work Phone: [facility] Work Phone: 03-29-2022 09:18-0400 Body weight 117.[address] Rica Padgett Work Phone: [facility] Work Phone: 03-29-2022 09:18-0400 Diastolic blood pressure 80 mm[Hg] Dr. Rica Padgett Work Phone: [facility] Work Phone: 03-29-2022 09:18-0400 Heart rate 80 /min Dr. Rica Padgett Work Phone: [facility] Work Phone: 03-29-2022 09:18-0400 Respiratory rate 20 /min Dr. Rica Padgett Work Phone: [facility] Work Phone: 03-29-2022 09:18-0400 SaO2% (BldA) [Mass fraction] 95 % Dr. Rica Padgett Work Phone: [facility] Work Phone: 03-29-2022 09:18-0400 Systolic blood pressure 162 mm[Hg] Dr. Rica Padgett Work Phone: [facility] Work Phone: 01-31-2022 03:58-0400 Diastolic blood pressure 82 mm[Hg] Dr. Rica Padgett Work Phone: [facility] Work Phone: 01-31-2022 03:58-0400 Heart rate 53 /min Dr. Rica Padgett Work Phone: [facility] Work Phone: 01-31-2022 03:58-0400 Respiratory rate 16 /min Dr. Rica Padgett Work Phone: [facility] Work Phone: 01-31-2022 03:58-0400 SaO2% (BldA) [Mass fraction] 98 % Dr. Rica Padgett Work Phone: [facility] Work Phone: 01-31-2022 03:58-0400 Systolic blood pressure 114 mm[Hg] Dr. Rica Padgett Work Phone: [facility] Work Phone: 01-30-2022 23:11-0400 Body height 162.[address] Rica Padgett Work Phone: [facility] Work Phone: 01-30-2022 23:11-0400 Body mass index (BMI) [Ratio] 42 kg/m2 Dr. Rica Padgett Work Phone: [facility] Work Phone: 01-30-2022 23:11-0400 Body temperature 97.9 [degF] Dr. Rica Padgett Work Phone: [facility] Work Phone: 01-30-2022 23:11-0400 Body weight 111.[address] Rica Padgett Work Phone: [facility] Work Phone: 01-25-2022 15:13-0400 Diastolic blood pressure 89 mm[Hg] Dr. Rica Padgett Work Phone: [facility] Work Phone: 01-25-2022 15:13-0400 Heart rate 78 /min Dr. Rica Padgett Work Phone: [facility] Work Phone: 01-25-2022 15:13-0400 Respiratory rate 18 /min Dr. Rica Padgett Work Phone: [facility] Work Phone: 01-25-2022 15:13-0400 SaO2% (BldA) [Mass fraction] 97 % Dr. Rica Padgett Work Phone: [facility] Work Phone: 01-25-2022 15:13-0400 Systolic blood pressure 143 mm[Hg] Dr. Rica Padgett Work Phone: [facility] Work Phone: 01-25-2022 12:56-0400 Body height 162.[address] Rica Padgett Work Phone: [facility] Work Phone: 01-25-2022 12:56-0400 Body mass index (BMI) [Ratio] 42.9 kg/m2 Dr. Rica Padgett Work Phone: [facility] Work Phone: 01-25-2022 12:56-0400 Body temperature 98.2 [degF] Dr. Rica Padgett Work Phone: [facility] Work Phone: 01-25-2022 12:56-0400 Body weight 113.[address] Rica Padgett Work Phone: [facility] Work Phone: 09-25-2021 14:30-0500 Body temperature 98.5 [degF] Dr. Rica Padgett Work Phone: [facility] Work Phone: 09-25-2021 14:30-0500 Diastolic blood pressure 78 mm[Hg] Dr. Rica Padgett Work Phone: [facility] Work Phone: 09-25-2021 14:30-0500 Heart rate 68 /min Dr. Rica Padgett Work Phone: [facility] Work Phone: 09-25-2021 14:30-0500 Respiratory rate 16 /min Dr. Rica Padgett Work Phone: [facility] Work Phone: 09-25-2021 14:30-0500 SaO2% (BldA) [Mass fraction] 93 % Dr. Rica Padgett Work Phone: [facility] Work Phone: 09-25-2021 14:30-0500 Systolic blood pressure 144 mm[Hg] Dr. Rica Padgett Work Phone: [facility] Work Phone: 09-25-2021 09:44-0500 Body height 162.[address] Rica Padgett Work Phone: [facility] Work Phone: 09-25-2021 09:44-0500 Body mass index (BMI) [Ratio] 42.9 kg/m2 Dr. Rica Padgett Work Phone: [facility] Work Phone: 09-25-2021 09:44-0500 Body weight 113.[address] Rica Padgett Work Phone: [facility] Work Phone: 05-22-2021 01:30-0400 Diastolic blood pressure 66 mm[Hg] Rica Padgett Other Phone: [facility] 05-22-2021 01:30-0400 Heart rate 72 /min Rica Padgett Other Phone: [facility] 05-22-2021 01:30-0400 Respiratory rate 16 /min Rica Padgett Other Phone: [facility] 05-22-2021 01:30-0400 SaO2% (BldA) [Mass fraction] 96 % Rica Malys Other Phone: [facility] 05-22-2021 01:30-0400 Systolic blood pressure 138 mm[Hg] Rica Malys Other Phone: [facility] 05-21-2021 22:35-0400 Body height 162.5 cm Rica Malys Other Phone: [facility] 05-21-2021 22:35-0400 Body temperature 97.16 [degF] Rica Malys Other Phone: [facility] 05-21-2021 22:35-0400 Body weight 109.3 kg Rica Malys Other Phone: [facility] 02-13-2021 05:12-0400 Diastolic blood pressure 73 mm[Hg] Rica Malys Other Phone: [facility] 02-13-2021 05:12-0400 Heart rate 55 /min Rica Malys Other Phone: [facility] 02-13-2021 05:12-0400 Respiratory rate 18 /min Rica Malys Other Phone: [facility] 02-13-2021 05:12-0400 SaO2% (BldA) [Mass fraction] 92 % Rica Malys Other Phone: [facility] 02-13-2021 05:12-0400 Systolic blood pressure 143 mm[Hg] Rica Malys Other Phone: [facility] 02-13-2021 02:01-0400 Body temperature 97.16 [degF] Rica Malys Other Phone: [facility] 07-25-2017 14:03-0500 BMI (Body Mass Index) 39.79 kg/m2 Azra Gee NP [facility] 07-25-2017 14:03-0500 BP Diastolic 78 mm[Hg] Azra Gee NP [facility] 07-25-2017 14:03-0500 BP Systolic 128 mm[Hg] Azra Gee CUSTOMER OPERATIONS INTERN [facility] 07-25-2017 14:03-0500 Height 161.93 cm Azra Marlen CUSTOMER OPERATIONS INTERN [facility] 07-25-2017 14:03-0500 Weight 104.33 kg Azra Gee CUSTOMER OPERATIONS INTERN [facility] 12-09-2016 11:09-0400 Body Temperature 98 [degF] Azra Gee CUSTOMER OPERATIONS INTER[employer] [facility] [place] [place] [facility] 12-09-2016 11:09-0400 BSA (Body Surface Area) 2.11 m2 Azra Gee CUSTOMER OPERATIONS INTERN [facility] 12-09-2016 11:09-0400 Pulse (Heart Rate) 86 /min Azra Gee CUSTOMER [employer]PERATIONS INTERN [facility] 12-09-2016 11:09-0400 Respiratory Rate 18 /min Azra Gee CUSTOMER [employer]PERATIONS INTER[employer] [facility] [place] [facility] Encounters Encounter Date Encounter Type Care Provider Facility Start: 03-11-2025 End: 03-11-2025 ambulatory Rica Malys Facility:[facility] Start: 02-18-2025 ambulatory Marissa Joseph Facility :[facility] Start: 02-09-2025 End: 02-09-20[facility] Start: 02-04-2025 End: 02-04-2025 [facility] Start: 01-07-2025 End: 01-07-2025 [facility] Start: 01-03-2025 End: 01-03-2025 [facility] Start: 11-29-2024 ambulatory Rica Malys [facility] Start: 11-29-2024 End: 11-29-2024 [facility] Start: 11-20-2024 End: 11-20-2024 [facility] Start: 11-19-2024 End: 11-19-2024 ambulatory Marissa Joseph Facility:[facility] Start: 10-15-2024 End: 10-15-2024 [facility] Start: 10-12-2024 End: 10-12-2024 Emergency department patient visit Rica Malys Facility:[facility] Start: 10-08-2024 End: 10-08-2024 ambulatory Marissa Joseph Facility:[facility] Start: 09-03-2024 End: 09-03-2024 ambulatory Rica Malys Facility:[facility] Start: 07-27-2024 End: 07-28-2024 ambulatory Tre Anderson Facility:[facility] Start: 07-13-2024 End: 07-13-2024 ambulatory Martin Trejo Facility:[facility] Start: 06-06-2024 End: 06-06-2024 ambulatory Marissa Joseph Facility:[facility] Start: 06-01-2024 End: 06-01-2024 ambulatory Rica Malys Facility:[facility] Start: 05-14-2024 ambulatory Marissa Joseph Facility :[facility] Start: 05-07-2024 End: 05-07-2024 ambulatory Rica Malys Facility:[facility] Start: 04-02-2024 End: 04-02-2024 ambulatory Marissa Joseph Facility:[facility] Start: 11-03-2023 Telephone encounter Yovanny Rogers i, MD Work Phone: [facility] Comment on above: Referral (Confirm re ceipt of referral faxed 11/01/23) Start: 09-06-2023 End: 09-07-[address] [facility] Start: 09-06-2023 End: 09-06-2023 Subsequent hospital visit by physician Renita Mijares DO Work Phone: [facility] Comment on above: Diarrhea, unspecifie d type (Primary Dx) Start: 02-22-2023 End: 02-24-2023 ambulatory PJ MAHONEY Facility:B Start: 02-22-2023 End: 02-24-[address] PJ MAHONEY MD [facility] Start: 02-03-2023 End: 02-04-2023 ambulatory PJ MAHONEY Facility:B Start: 02-03-2023 End: 02-04-2023 ambulatory PJ MAHONEY Facility:[facility] Start: 02-03-2023 End: 02-03-[address] PJ MAHONEY MD [facility] Start: 02-03-2023 End: 02-03-[address] PJ MAHONEY MD [facility] Start: 10-06-20[address]-Myke Yoonkassandratiti Work Phone: [facility] Comment on above: Page Out Start: 09-27-2022 Orders Only Nicolás Swenson Work Phone: Orthopaedics Comment on above: 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 Rica Padgett Work Phone: [facility] Work Phone: Start: 09-20-2022 End: 09-20-[address] Rica Padgett Work Phone: [facility]-Laboratory Start: 09-17-2022 Non-patient / Non-visit Dr. Angela Padgett Work Phone: [facility] Start: 09-17-2022 Non-patient / Non-visit Dr. Angela Padgett Work Phone: [facility] Start: 09-16-2022 Non-patient / Non-visit Dr. Angela Padgett Work Phone: [facility] Start: 09-16-2022 End: 09-17-2022 Evaluation and management of inpatient Dr. Rica Padgett Work Phone: [facility]-Medical Surgical 3 Start: 09-15-2022 End: 01-18-[address] Rica Padgett Work Phone: [facility] Work Phone: Start: 09-15-2022 End: 09-15-[address] Rica Padgett Work Phone: [facility]-Cardiovascular Services Start: 09-13-2022 End: 09-13-[address] Rica Padgett Work Phone: [facility] Start: 07-07-2022 End: 07-07-[address] Rica Padgett Work Phone: [facility] Work Phone: Start: 07-07-2022 End: 07-07-[address] Rica Padgett Work Phone: [facility] Start: 06-23-2022 Telephone encounter Nicolás velazquez MD Work Phone: Orthopaedics Comment on above: Question Start: 05-19-2022 End: 05-19-[address] Rica Padgett Work Phone: [facility] Start: 05-19-2022 End: 05-19-2022 ambulatory NICOLÁS AGGARWAL Facility:[facility] Start: 05-19-2022 End: 05-19-2022 Patient encounter procedure Nicolás Aggarwal MD Work Phone: Orthopaedics Comment on above: Pes planus of left f oot (Primary Dx); Primary osteoarthritis of left foot; Diabetic neuropathy, painful (HCC); Acquired valgus deformity of left ankle Start: 05-19-2022 End: 05-19-2022 Subsequent hospital visit by physician Mehdi Valverde [facility] Work Phone: Radiology Comment on above: Pain [R52] Start: 03-29-2022 End: 03-29-[address] Rica Padgett Work Phone: [facility] Start: 01-30-2022 End: 01-31-2022 Emergency department patient visit Dr. Rica Padgett Work Phone: [facility]-Emergency Department Start: 01-25-2022 End: 01-25-2022 Emergency department patient visit Dr. Rica Padgett Work Phone: [facility]-Emergency Department Start: 11-12-2021 End: 11-12-[address] Rica Padgett Work Phone: [facility] Start: 11-11-2021 End: 11-11-[address] Rica Padgett Work Phone: [facility] Start: 11-10-2021 End: 11-10-[address] Rica Padgett Work Phone: [facility]-Pre-Admission Testing Start: 11-10-2021 Non-patient / Non-visit Dr. Angela Padgett Work Phone: [facility] Start: 09-25-2021 End: 09-25-2021 Admission to same day surgery center Dr. Rica Padgett Work Phone: [facility]-Surgical Day Care Start: 08-07-[address] Rica Padgett Work Phone: [facility] Start: 05-21-2021 End: 05-22-2021 Emergency department patient visit Silvana Henderson [facility] Emergency 11 Start: 02-13-2021 End: 02-13-2021 Emergency department patient visit Jesus Amezquita [facility] Emergency 11 Start: 02-08-2020 End: 02-08-2020 Patient encounter procedure PB DRUMMOND [facility] Start: 02-07-2015 End: 02-07-2015 Telephone encounter [...] Pelvic & Breast Exam (Medicare) Azra Gee CUSTOMER OPERATIONS INTERN Work Phone: Start: 12-09-2016 End: 12-09-2016 [...] Screening for malign ant neoplasm of colon [facility] Start: 05-22-2029 Screening for malign ant neoplasm of colon [facility] Start: 10-05-2025 Diabetes mellitus screening Diabetes Screening [facility] Start: 03-28-2025 ambulatory Ambulatory Facility:[facility] Start: 10-05-2023 Hemoglobin A1c measurement Diabetes: Hemoglobin A1C [facility] Start: 10-01-2023 Lipid panel Lipid Panel [facility] Start: 10-01-2023 Thyroid stimulating hormone measurement TSH Level [facility] Start: 08-29-2023 Medicare Advantage A nnual Wellness Visit Medicare Advantage Annual Wellness Visit [facility] Start: 08-05-2023 COVID-19 Vaccine (4 - Pfizer series) COVID-19 Vaccine (4 - Pfizer series) [facility] Start: 2023 Advance Directive Discussion Advance Directive Discussion [facility] Start: 2023 Bone Density Screening Bone Density Screening [facility] Start: 2023 Pneumococcal Vaccine : 65+ Years (2 of 2 - PCV) Pneumococcal Vaccine: 65+ Years (2 of 2 - PCV) [facility] Start: 04-29-2023 COVID-19 Vaccine ( season) COVID-19 Vaccine ( season) [facility] Start: 04-29-2023 Influenza vaccination Influenza Vacc ine (#1) [facility] Start: 04-01-2023 Depresssion Monitoring Depresssion M onitoring [facility] Start: 01-02-2023 Hemoglobin A1c measurement Diabetes: Hemoglobin A1C [facility] Start: 09-17-2022 Patient [facility] Start: 09-16-2022 Ambulation without limitation [facility] Start: 09-16-2022 Assessment of risk o f venous thromboembolism [facility] Start: 09-16-2022 Care regimes management [facility] Start: 09-16-2022 Catheterization of vein [facility] Start: 09-16-2022 Continuous positive airway pressure ventilation treatment [facility] Start: 09-16-2022 Insertion of cathete r into peripheral vein [facility] Start: 09-16-2022 Notification of physician [facility] Start: 09-16-2022 Oxygen therapy [facility] Start: 09-16-2022 Providing care accor ding to standard [facility] Start: 09-16-2022 [facility] Start: 09-16-2022 Admission procedure [facility] Start: 09-16-2022 Following clinical pathway protocol [facility] Start: 09-16-2022 Patient referral to dietitian [facility] Start: 08-29-2022 DEPRESSION ASSESSMENT DEPRESSION ASS ESSMENT [facility] Start: 04-29-2022 Influenza vaccination INFLUENZA (#1) [facility] Start: 04-09-2022 DIABETES SCREEN DIABETES SCREEN [facility] Start: 09-25-2021 Anesthesia lumbar re gion nos ANESTH SPINE CORD SURGERY [facility] Work Phone: Start: 09-25-2021 Impltj/rplcmt ithcl/ edrl drug nfs prgrbl pump IMPLANT SPINE INFUSION PUMP [facility] Work Phone: Start: 08-29-2021 [facility] Start: 04-29-2021 Influenza vaccination INFLUENZ A (Season Ended) [facility] Start: 04-09-2020 Hepatitis B screening URINE ALBUMIN:CREATININE RATIO [facility] Start: 2018 Hepatitis B Vaccine (1 of 3 - Risk 3-dose series) Hepatitis B Vaccine (1 of 3 - Risk 3-dose series) [facility] Start: 2018 RSV Immunization age d 60 or older (1 - 1-dose 60+ series) RSV Immunization aged 60 or older (1 - 1-dose 60+ series) [facility] Start: 07-25-2017 End: 07-25-[address] [facility] Start: 03-22-2017 Mammography [facility] Start: 12-09-2016 End: 12-09-2016 *BMP *BMP [facility] Start: 12-09-2016 End: 12-10-2016 *Hepatic Function Panel *Hepatic Function Panel [facility] Start: 12-09-2016 End: 12-09-2016 Ct abdomen & pelvis w/contrast material CT Abdomen/pelvis; with contrast [facility] Start: 12-09-2016 End: 12-10-2016 Follow Up after Imaging/labs Follow Up after Imaging/labs [facility] Start: 12-09-2016 End: 12-09-2016 Lipase *Lipase [facility] Start: 12-08-2015 End: 12-08-2015 *CBC with Differential *CBC with Differential [facility] Start: 12-08-2015 End: 12-08-2015 *CMP Complete Metabolic Panel *CMP Complete Metabolic Panel [facility] Start: 12-08-2015 End: 12-08-2015 *PROTS Protein S Defic. Profile [id number] *PROTS Protein S Defic. Profile [id number] [facility] Start: 12-08-2015 End: 12-08-2015 *UA - Urinalysis w/o Micro *UA - Urinalysis w/o Micro [facility] Start: 12-08-2015 End: 12-08-2015 Antithrombin actual/normal in Platelet poor plasma by Chromogenic method *AT3 - Antithrombin 3 Activity [id number] [facility] Start: 12-08-2015 End: 12-08-2015 Cardiolipin Antibodies (IgA IgG IgM) Cardiolipin Antibodies (IgA IgG IgM) [facility] Start: 12-08-2015 End: 12-08-2015 Clotting inhibitors protein c activity Protein C Activity [facility] Start: 12-08-2015 End: 12-08-2015 Ct thorax w/contrast material CT Chest with Contrast [facility] Start: 12-08-2015 End: 12-08-2015 Factor V (Leiden) Mutation Analysis Factor V (Leiden) Mutation Analysis [facility] Start: 12-08-2015 End: 12-08-2015 Lipid panel [AGGREGATE] *Lipid Profile [facility] Start: 12-08-2015 End: 12-08-2015 Thyroid stimulating hormone (TSH) *TSH [facility] Start: 12-08-2015 End: 12-08-2015 Urine, microalbumin *Urine, Microalbumin [facility] Start: 07-29-2015 LIPID SCREEN LIPID SCREEN [facility] Start: 02-26-2014 Screening for malign ant neoplasm of colon SIGMOIDOSCOPY [facility] Start: 02-26-2014 SIGMOIDOSCOPY SIGMOIDOSCOPY [facility] Start: 03-19-2013 Colonoscopy COLONOSCOPY [facility] Start: 03-19-2013 COLORECTAL CANCER SCREENING COLORECTAL CANCER SCREENING [facility] Start: 03-19-2013 Screening for malign ant neoplasm of colon [facility] Start: 07-03-2011 Hemoglobin A1c/Hemoglobin.total in Blood HBA1C [facility] Start: 2008 Screening for malign ant neoplasm of colon [facility] Start: 2008 SHINGRIX VACCINE (1 of 2) ROMAN GRIX VACCINE (1 of 2) [facility] Start: 2003 COLOGUARD (FIT-DNA) COLOGUARD (FIT-D NA) [facility] Start: [address] COLONOGRAPHY [facility] Start: 2003 FECAL OCCULT BLOOD FECAL OCCULT BLOO D [facility] Start: 1998 Screening for malign ant neoplasm of breast Mammogram [facility] Start: 1988 Screening for malign ant neoplasm of cervix [facility] Start: 1980 DTaP/Tdap/Td Vaccine s (1 - Tdap) DTaP/Tdap/Td Vaccines (1 - Tdap) [facility] Start: 1979 Screening for malign ant neoplasm of cervix [facility] Start: 1977 DTaP/Tdap/Td Vaccine s (1 - Tdap) DTaP/Tdap/Td Vaccines (1 - Tdap) [facility] Start: 1977 Urine microalbumin profile [facility] Start: 1977 Urine screening for protein Diabetes: Urine Protein Screening [facility] Start: 1976 ANNUAL PCP TEAM MANAGER MARKET DEVELOPMENT DYLAN DISEASE VISIT ANNUAL PCP TEAM CHRONIC DISEASE VISIT [facility] Start: 1976 Hepatitis B surface antibody level LDL CHOLESTEROL [facility] Start: 1976 HEPATITIS C SCREENING HEPATITIS C SC REENING [facility] Start: 1976 Hepatitis C screening Hepatitis C Sc reening [facility] Start: 1976 HIV SCREENING HIV SCREENING [facility] Start: 1970 Adult depression screening assessment DEPRESSION SCREENING [facility] Start: 1968 3 comp foot exam completed DIABETIC FOOT EXAM [facility] Start: 1968 Diabetic foot examination Diabetes: Foot Exam [facility] Start: 1968 Glaucoma screening Diabetes: R etinopathy Screening [facility] Start: 1968 Hepatitis B screening Urine Albumin:Creatinine Ratio [facility] Start: 1968 Hepatitis C antibody , confirmatory test DILATED RETINAL EXAM [facility] Start: 1968 Preventive dental service Diabetes: Dental Exam [facility] Start: 1964 PNEUMOCOCCAL (1 - PCV) PNEUMOCOCCAL (1 - PCV) [facility] Start: 1964 Pneumococcal Vaccine : 65+ (1 - PCV) Pneumococcal Vaccine: 65+ (1 - PCV) [facility] Start: 1959 MMR Vaccines (1 of 1 - Standard series) MMR Vaccines (1 of 1 - Standard series) [facility] Start: 1960 COVID-19 VACCINE (#1) COVID-19 VACCI NE (#1) [facility] Start: 1960 Annual wellness visit Medicare Initial Physical (IPPE) [facility] Start: 1960 Hepatitis B Vaccines (1 of 3 - 3-dose series) Hepatitis B Vaccines (1 of 3 - 3-dose series) [facility] Start: 1960 HIV screening HIV Screening [facility] Start: 1960 Lipid panel Lipid Panel [facility] Start: 1960 Screening for malign ant neoplasm of colon [facility] Start: 1960 Screening for osteoporosis Bone Density Scan [facility] Start: 1960 Thyroid stimulating hormone measurement TSH Level [facility] End: 09-06-2023 Moderate Sedation Moderate Sedation Procedures Routine Once for 1 Occurrences starting 09/06/2023 until 09/06/2023 [facility] Service Area Work Phone: Comment on above: Once for 1 Occurrenc es starting 09/06/2023 until 09/06/2023 Patient Education [facility] Patient referral [facility] Work Phone: End: 10-27-2023 XR ANKLE GENERAL 3V AP/LAT/OBL LEFT XR ANKLE GENERAL 3V AP/LAT/OBL LEFT Radiology Routine Acquired valgus deformity of left ankle 1 Occurrences starting 09/28/2022 until 10/27/2023 [facility] Work Phone: Comment on above: 1 Occurrences starti ng 09/28/2022 until 10/27/2023 [facility] Immunizations Immunization Date Immunization Notes Care Provider [facility] 06-16-2022 influenza virus vaccine, unspecified formulation Yovanny Landis MD Work Phone: [facility] [employer] 06-25-2018 influenza virus vaccine, unspecified formulation Xr Rej Work Phone: [facility] 05-29-2015 influenza, seasonal, injectable Dr. Rica Padgett Work Phone: [facility] 06-29-[address] Rica Padgett Work Phone: [facility] 07-26-2012 influenza virus vaccine, unspecified formulation Azra Gee Work Phone: [facility] 05-13-[address] Danya Padgett Work Phone: [facility] Work Phone: 05-13-2012 pneumococcal vaccine , unspecified formulation Dr. Rica Padgett Work Phone: [facility] NEGATED: Highlighted row has not occurred!10-03-2022 Influenza, injectable, Madin Huntington Canine Kidney, preservative free, quadrivalent Tre Anderson DO Work Phone: [facility] [employer] Comment on above: Deferred: Patient Re fused Payers Date Payer Category Payer Self-pay [id number] 2022 [facility] of [facility] (NICOLA and others) [id number] 2022 [employer] of [employer] ( and others) [id number] 2022 Private Health Insurance [id number] 2022 Medicare [id number] 2017 Unknown [id number] 2013 [employer] of [employer] ( and others) [id number] 2013 Unknown FOR LIFE [id number] 2013-Present Indemnity [id number] .[id number] 2007 Medicare MEDICARE MEDICAR E B [id number] 2007-2016 [place] [id number] .[id number] 2007 Medicare [id number] 1.13.159.2 .7.3.073795.315 2004 Medicare [id number] 2004 Medicare MEDICARE MEDICAR E A AND B [id number] 2004-Present [place] Medicare [id number] .7.3.061613.315 2004 Unknown 1958 Unknown [id number] 2.16.840.1.277896.3.579.2 .651 1958 Unknown [id number] 2.16.840.1.476881.3.579.2 .627 1958 Unknown [id number] 2.16.840.1.665716.3.579.2 .627 1958 Unknown [id number] 2.16.840.1.809933.3.579.2 .627 1958 Unknown [id number] 2.16.840.1.717229.3.579.2 .1243 Unknown [id number] 2.16.840.1.296054.3.579.2 .462 Unknown [id number] 2.16.840.1.003657.3.579.2 .462 Unknown [id number] 2.16.840.1.710741.3.579.2 .462 Unknown [id number] 2.16.840.1.476516.3.579.2 .462 Unknown [id number] 2.16.840.1.104363.3.579.2 .462 Unknown [id number] 2.16.840.1.863275.3.579.2 .462 Unknown [id number] 2.16.840.1.459362.3.579.2 .462 Unknown [id number] 2.16.840.1.233768.3.579.2 .462 Unknown [id number] 2.16.840.1.195987.3.579.2 .462 Unknown [id number] 2.16.840.1.676271.3.579.2 .462 Unknown [id number] 2.16.840.1.549936.3.579.2 .462 Unknown [id number] 2.16.840.1.042805.3.579.2 .462 Unknown [id number] 2.16.840.1.991563.3.579.2 .462 Unknown [id number] 2.16.840.1.993128.3.579.2 .462 Unknown [id number] 2.16.840.1.918161.3.579.2 .462 Unknown [id number] 2.16.840.1.698945.3.579.2 .462 Unknown [id number] 2.16.840.1.725673.3.579.2 .462 Unknown [id number] 2.16.840.1.514699.3.579.2 .462 Unknown [id number] 2.16.840.1.510383.3.579.2 .462 Unknown [id number] 2.16.840.1.567712.3.579.2 .462 Unknown [id number] 2.16.840.1.485716.3.579.2 .462 Unknown [id number] 2.16.840.1.515367.3.579.2 .462 Unknown [id number] 2.16.840.1.095694.3.579.2 .462 Unknown [id number] 2.16.840.1.396765.3.579.2 .462 Social History Date Type Detail Facility Start: 03-06-2011 End: 09-21-2012 Tobacco smoking status COIS Former smoker [facility] Work Phone: Comment on above: quit in 1993 End: 03-21-1994 History of tobacco use Current smoker [facility] Start: 09-21-2012 End: 09-06-2023 Tobacco use and exposure Never used [facility] Start: 09-21-2012 Alcohol intake 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 (finding) [facility] Start: 1960 Sex Assigned At Not on file [facility] Start: 11-10-2021 End: 09-16-2022 Tobacco smoking consumption unknown [facility] Start: 08-11-2019 Rare [facility] Start: 08-11-2019 None [facility] Start: 12-08-2020 Spouse/ Signif icant Other [facility] Start: 05-18-2019 Non-smoker [facility] Start: 1960 Sex Assigned At Female W [facility] End: 03-21-1994 History of tobacco use Cigarette Smoker [facility] Work Phone: Start: 04-13-2022 Alcohol intake Current drinke r of alcohol (finding) [facility] Start: 04-09-2019 History SDOH Alcohol Comment rarely [facility] Start: 05-09-2022 End: 09-06-2023 Exposure to SARS-CoV-2 (event) Not sure [facility] Start: 02-03-2023 End: 09-06-2023 Tobacco smoking status Never smoked tobacco (finding) [facility] Sex Assigned At Sex [facility] Start: 04-13-2022 End: 10-02-2022 History of Social function [facility] Start: 04-13-2022 End: 10-02-2022 Tobacco use panel [facility] National Score (1-10 0), lower number is lower risk Not on file [facility] Start: 09-06-2023 Alcohol intake Lifetime non-d sue (finding) [facility] Work Phone: Within the last year , have you been afraid of your partner or ex-partner? No [facility] How often to you hav e a drink containing alcohol? Monthly or less [facility] How many standard drinks containing alcohol do you have on a typical day? 1 or 2 [facility] How often do you hav e 6 or more drinks on 1 occasion? Never [facility] Start: 10-04-2022 Sexual orientation Heterosexual (fin omari) [facility] Start: 10-02-2022 History SDOH Alcohol Frequency 2 [facility] Start: 10-02-2022 History SDOH Alcohol Std Drinks 1 [facility] Medical Equipment Procedure Code Equipment Code Equipment [...] performed [facility] 02-24-2023 Functional Status [facility] 02-24-2023 Functional Status Independent [facility] 02-24-2023 Functional Status Min A [facility] 02-24-2023 Functional Status Demonstrates C orrect Call Light Use Yes [facility] 02-23-2023 Functional Status [facility] 02-23-2023 Functional Status Dinner Percent 25 [facility] 02-23-2023 Functional Status [facility] 02-23-2023 Functional Status 60 [facility] 02-23-2023 Functional Status 2 [facility] 02-23-2023 Functional Status Single level home [facility] 02-23-2023 Functional Status [facility] 02-22-2023 Functional Status [facility] 02-22-2023 Functional Status [facility] 02-22-2023 Functional Status Cane, Walker [facility] 02-22-2023 Functional Status ice on, tension pillow in place [facility] 02-22-2023 Functional Status NPO Status Maintained A [facility] 02-03-2023 Functional Status Sensory Deficits None [facility] 09-17-2022 Functional status Ambulates [facility] Work Phone: Mental Status Date Assessment Result Facility 02-24-2023 Mental Status Orientation Asse ssment Oriented x 4 [facility] 02-24-2023 Mental Status [facility] 02-24-2023 Mental Status Oriented x 4 [facility] 02-23-2023 Mental Status [facility] 02-23-2023 Mental Status [facility] aissatou Carlson 09-16-2022 Cognitive function Voice/Name [facility] Work Phone: 01-30-2022 Cognitive function Level Of Cons ciousness Awake;Alert;Appropriate;Follow s Commands [facility] Work Phone: 09-25-2021 Cognitive function Level Of Cons ciousness Appropriate;Drowsy [facility] Work Phone: 09-25-2021 Cognitive function Voice/Name [facility] Work Phone: Clinical Notes 02-07-2015 to 07-28-2024 Telephone Encounter - Kitty Greco - 11/07/2023 10:14 AM EDTTelephone Encounter - Kitty rGeco - 11/07/2023 10:14 AM EDTTelephone Encounter - Maria Teresa Bacon - 11/03/2023 9:43 AM EST Note Date & Type Note Facility 07-28-2024 Note [facility] Medical Records Department [address] [place] [address] Discharge Summary 07/28/24 1433 MR#: [id number] Acct: [id number] Name: FLEX WOOTEN Rep #: [id number] : 1960 64 From: Tre Anderson DO PCP: Dr. Rica Padgett DO Status:ADM LATRICIA Location: [place] [address] Providers Date of Admission: 07/27/24 Primary Care [...] would like to follow up with the [facility] instead. Chronic conditions: * Type 2 [...] Course Operations No (more content not included)... [facility] 11-07-2023 Note Spoke to patient and advised her that we have not received her referral and requested her to have her pcp refax the referral to us. Patient verbalized understanding. [facility] 11-07-2023 Telephone encounter Note Spoke to patient and advised her that we have not received her referral and requested her to have her pcp refax the referral to us. Patient verbalized understanding. [facility] 11-07-2023 Miscellaneous Notes Spoke to patient and advised her that we have not received her referral and requested her to have her pcp refax the referral to us. Patient verbalized understanding. Name of caller: Flex Contact phone number: [phone] Relationship to Patient: patient Provider: Dr. Landis [...] their call: No documented in this encounter [facility] 11-03-2023 Telephone encounter Note Name of caller: Flex Contact phone number: [phone] Relationship to Patient: patient Provider: Dr. Landis [...] business hours to return their call: No [facility] 09-06-2023 Hospital Discharg e instructions Mariia Mcghee [...] having your procedure, call the [facility] to be advised whether a visit to [...] Party Signature Date documented in this encounter [facility] Work Phone: 09-06-2023 History and physical [...] care of this patient. Renita Mijares DO [place] Work Phone: 09-06-2023 History and physical note [...] Renita Mijares DO documented in this encounter [facility] Work Phone: 09-06-2023 Miscellaneous Notes Patient: Flex Wooten Pre-sedation Evaluation: Sedation necessary for: Analgesia Requesting service: Endoscopy History of Present Illness: Colonoscopy Past Medical History: Diagnosis Date Anxiety Chronic pain Depression Diabetes mellitus (CMS/HCC) Disease of thyroid gland Sleep apnea Principle problems: There are no problems to display for this patient. Allergies: Allergies Allergen Reactions Effexor [Venlafaxine] GI Upset CARPENTERS/Current Medications: (Not in a hospital admission) Current [...] ASA 2 Moderate documented in this encounter [facility] Work Phone: 09-06-2023 Note Formatting of [...] Allergies Allergen Reactions Effexor [Venlafaxine] GI Upset CARPENTERS/Current Medications: (Not in a hospital admission) Current [...] - normal exam Plan ASA 2 Moderate [facility] Work Phone: 09-06-2023 Note Formatting of [...] Allergies Allergen Reactions Effexor [Venlafaxine] GI Upset CARPENTERS/Current Medications: (Not in a hospital admission) Current [...] - normal exam Plan ASA 2 Moderate [facility] Work Phone: 02-24-2023 Hospital Discharg e instructions Patient Education 02/24/2023 14:38:28 5 - [facility] Post-op Instruction 03/2017 (84808) [facility] Post-operative Instructions PLEASE FOLLOW [facility] POST-OP INSTRUCTIONS GIVEN WATCH FOR SIGNS OF INFECTION: call the office ([phone]) if experencing any of the following: (Usually [...] on your follow up instructions. Form: 338A (82507) R: 01/02 Follow Up Care 08/11/2022 13:44:36 With:MATTHEW HERNÁNDEZ PA-C, Orthopedic Address: [facility] [address] [place] [address]- When:03/07/2023 10:15:00 [facility] 02-24-2023 Note Discharge Instructions Thank you for allowing [facility] to assist you with your healthcare needs. The following is important discharge information regarding your hospital visit. Your Care Team [facility] Your Diagnosis Osteoarthritis Diabetes HTN (hypertension) Sleep apnea Status post total right knee replacement What to do next Follow Up Appointments Follow Up with MATTHEW HERNÁNDEZ PA-C, Orthopedic When 03/07/2023 10:15 AM EDT Where: [facility] [address] [place] [address]- The Following Activity and Diet Have Been [...] FOR SIGNS OF INFECTION: call the office ([phone]) if experencing any of the following: (Usually [...] on your follow up instructions. Form: 338A (08246) R: 01/02 Additional Information VACCINATE! IT SAVES LIVES! Members of the community who have not yet received the COVID-19 vaccine and would like to receive it can visit one of [facility] vaccine clinics. There are many vaccine clinic locations within the [facility]. For locations and available times, please visit [email or web address].o hio.gov/. It is important to note that some COVID mobile vaccine clinics are held outdoors and may be canceled in rainy or stormy conditions. To learn more about pediatric vaccinations (ages 5-11), we invite you to visit the [facility] webpage. https://www.[facility].org/p ages/3068-Czfid-Lpduhtsatjg-Freq fgifju-Kirnk-Gudcngmak.html To learn more about the COVID-19 vaccine, we invite you to visit the CDC website for a list of frequently asked questions.https://www.cdc.gov/co ronavirus/2019-ncov/vaccines/faq .html [facility] Patient Portal Access Instructions: Stay connected with your healthcare team and access your personal medical information anytime with the [employer] [facility] Patient Portal. Please follow the directions below to create your [facility] account: 1.Access the email account you provided upon registration to the hospital/physician office.2.Look for an invitation email from [facility].3.Open the email and access the invitation link: Accept Invitation to [facility].4.Fill in the required morocho to create your account. To access your account, visit [email or web address]. Click the blue button labeled Access Patient [...] you will allow to register on the [facility] Patient Portal for access to your information. You can also access the [facility] Patient Portal on the [facility] [employer] otoniel. Simply click on Patient Portal and then log into your account. If you would like to receive a full copy of your medical records, please contact the [facility] Medical Records Department by calling [phone], Tuesday through Tuesday between 8 a.m. and [...] Call your local pharmacy or go to http://bit.ly/6S6Jq5x to find one close to you.3.Make use of household items: Use cat litter or old coffee grounds to dispose medications if other options are not available. Mix your drugs with these household products, seal them in an airtight container and throw it into the garbage. Call [facility]: [phone] to be sure your drugs can be [...] Education Materials [facility] Post-op Instruction 03/2017 (40167) Medication Leaflets My discharge plan and instructions have been reviewed and explained to me and I,FLEX WOOTEN understand my current condition and have read and understand these discharge instructions. I have received a written copy of the plan/instructions. If I have questions, I am aware that I should contact my doctor. Patient/Supply Teacher Signature: Date/Time: Relationship to Patient: Witness Name/Signature: Date/Time: [facility] 02-24-2023 Note Discharge Instructions Thank you for allowing [facility] to assist you with your healthcare needs. The following is important discharge information regarding your hospital visit. Your Care Team [facility] Your Diagnosis Osteoarthritis Diabetes HTN (hypertension) Sleep apnea Status post total right knee replacement What to do next Follow Up Appointments Follow Up with MATTHEW HERNÁNDEZ PA-C, Orthopedic When 03/07/2023 10:15 AM EDT Where: [facility] [address] [place] [address]- The Following Activity and Diet Have Been [...] The extended-release form of oxycodone is for lxvkmh-ose-icyrc treatment of pain and should not be [...] against the law. Stop taking all other bhlrkb-bss-sckhe opioid pain medicines when you start taking [...] may report side effects to FDA at 1-543-TOP-1261. What other drugs will affect oxycodone? You [...] may affect oxycodone. This includes prescription and xljc-uyv-tvgnehh medicines, vitamins, and herbal products. Not all [...] to ensure that the information provided by [employer]') is accurate, up-to-date, and complete, but no guarantee is made to that effect. Drug information contained herein may be time sensitive. [employer] information has been compiled for use by healthcare practitioners and consumers in the [place] and therefore [employer] does not warrant that uses outside of the [place] are appropriate, unless specifically indicated otherwise. [employer]'s drug information does not endorse drugs, diagnose patients or recommend therapy. [employer]'s drug information is an informational resource designed [...] effective or appropriate for any given patient. [facility] does not assume any responsibility for any aspect of healthcare administered with the aid of information [facility] provides. The information contained herein is not intended to cover all possible uses, directions, precautions, warnings, drug interactions, allergic reactions, or adverse effects. If you have questions about the drugs you are taking, check with your doctor, nurse or pharmacist. Copyright 6022-6737 [facility] [employer]. Version: 14.02. Revision Date: 09/25/2020. Education Materials [facility] Post-operative Instructions PLEASE FOLLOW [facility] POST-OP INSTRUCTIONS GIVEN WATCH FOR SIGNS OF INFECTION: call the office ([phone]) if experencing any of the following: (Usually [...] on your follow up instructions. Form: 338A (02693) R: 01/02 Additional Information VACCINATE! IT SAVES LIVES! Members of the community who have not yet received the COVID-19 vaccine and would like to receive it can visit one of [facility] vaccine clinics. There are many vaccine clinic locations within the [facility]. For locations and available times, please visit https://[email or web address].o hio.gov/. It is important to note that some COVID mobile vaccine clinics are held outdoors and may be canceled in rainy or stormy conditions. To learn more about pediatric vaccinations (ages 5-11), we invite you to visit the [facility] webpage. https://www.[facility].org/p ages/0966-Adhah-Zzwloqjlwkn-Freq gizvpp-Swooz-Hirapkeit.html To learn more about the COVID-19 vaccine, we invite you to visit the CDC website for a list of frequently asked questions.https://www.cdc.gov/co ronavirus/2019-ncov/vaccines/faq .html [facility] Patient Portal Access Instructions: Stay connected with your healthcare team and access your personal medical information anytime with the [facility] Patient Portal. Please follow the directions below to create your [facility] account: 1.Access the email account you provided upon registration to the hospital/physician office.2.Look for an invitation email from [facility].3.Open the email and access the invitation link: Accept Invitation to [facility].4.Fill in the required morocho to create your account. To access your account, visit [email or web address]. Click the blue button labeled Access Patient [...] you will allow to register on the [facility] [employer] [facility] Patient Portal for access to your information. You can also access the [facility] Patient Portal on the [employer] otoniel. Simply click on Patient Portal and then log into your account. If you would like to receive a full copy of your medical records, please contact the [facility] Medical Records Department by calling [phone], Tuesday through Tuesday between 8 a.m. and [...] Call your local pharmacy or go to [email or web address]/[email or web address] to find one close to you.3.Make use of household items: Use cat litter or old coffee grounds to dispose medications if other options are not available. Mix your drugs with these household products, seal them in an airtight container and throw it into the garbage. Call [facility]: [phone] to be sure your drugs can be [...] [facility] - [facility] Post-op Instruction 03/2017 (11347) Medication Leaflets oxycodone My discharge plan and instructions have been reviewed and explained to me and IJE ANN E understand my current condition and have read and understand these discharge instructions. I have received a written copy of the plan/instructions. If I have questions, I am aware that I should contact my doctor. Patient/Supply Teacher Signature: Date/Time: Relationship to Patient: Witness Name/Signature: Date/Time: [facility] Wolf Carlson 02-23-2023 Note Date of Service February 23, 2023 Subjective The patient was sitting in bed upon examination. Patient denies any chest pain, shortness of breath, dizziness, lightheadedness, nausea or vomiting, or calf pain. No adverse overnight events. Pain has been controlled on medications. Patient was evaluated by physical therapy. Discharge planning is possible home health versus detention facility. She has had a previous left total knee arthroplasty that did require detention facility in the past. She states she went to [facility]. We do have physical therapy [...] possible discharge home with home health for detention facility. Patient does have steps to manage [...] of pulmonary embolism. I have reviewed the [place] Automated Rx Reporting System (OARRS) report for [...] MATTHEW HERNÁNDEZ PA-C on 02/23/2023 07:28 AM [facility] 02-22-2023 Note ORIGINAL EXAMINATION: TWO XRAY [...] 02/22/2023 1:07:27 PM Ordering Provider: PJ MAHONEY [facility] 02-22-2023 Note ORIGINAL EXAMINATION: TWO XRAY [...] Ordering Provider: PJ [facility] 02-22-2023 Anesthesiology Consult note Patient: FLEX WOOTEN Age: 62 years Sex: Female : 1960 Associated Diagnoses: None Author: MARTINA GOODWIN APRN-FISH TRAPPER Preoperative Information Time of last food or [...] Sister Diabetes Mother Sister Procedure history: Bunionectomy (80915320). Comments: 02/03/2023 13:48 Hansa Álvarez RN BILATERAL Plantar fasciectomy ([id number]). Comments: 02/03/2023 13:48 Hansa Álvarez RN LEFT Fusion of lumbosacral region of spine by posterior approach ([id number]). Carpal tunnel release (813473602). Comments: 02/03/2023 13:50 Hansa Álvarez RN BILATERAL Tonsillectomy and adenoidectomy (817482985). Tubal ligation (306559545). Hysterectomy ([id number]). Pump, device ([id number]). Comments: 02/03/2023 13:51 EDT - Hansa Nelson RN PAIN PUMP Total knee arthroplasty ([id number]). Comments: 02/03/2023 13:52 EDT - Hansa Nelson [...] Resp Rate 17 br/min (FEB 22 09:31) FBG269 mmHg (FEB 22 09:31) DBP77 mmHg (FEB 22 09:31) Measurements from flowsheet : Measurements 02/22/2023 9:31 EDT Height 162.6 cm Admission Weight 110 kg [place] Body Weight 54.74 kg Admission Body Mass [...] Height 162.6 cm Admission Weight 110 kg [place] Body Weight 54.74 kg Admission Body Mass [...] no difficulties Skin Temperature Warm Skin Description [place], Normal for ethnicity, Dry Skin Integrity Intact Mucous Membrane Color [place] Skin Moisture General Dry IV Present Present [...] no symptoms Safety Brochure Information Reviewed Yes [facility] Video Viewed No Teaching Evaluation No further teaching needed Admission Note-Nursing Same Day Patient History (Modified) . Assessment and Plan [place] [employer]esthesiologists (ASA) physical status classification: [...] on 02/22/2023 10:02 AM Digitally Signed by MARTNIA GOODWIN on 02/22/2023 10:56 AM Digitally Signed by MARTINA GOODWIN on 02/22/2023 10:59 AM [facility] 10-06-2022 Telephone encounter Note Name of caller requesting page:Matthew Phone Number of caller: [phone] ext [phone] Facility requesting page: [facility] Reason for Page: [...] peer to peer review with their biomedical engineering supervisor. The acceptance date for the peer to peer is on or before 10/08/22 at 3pm. Peer to Peer can be scheduled by call Matthew at [phone] ext [phone] with reference number [id number]. Thank you. Response from Dr. Wright: I have never seen or met the patient Im not sure who needs to be contacted for this patient Reached out to [facility] management. Advised to call Ray back. Spoke with another nurse advisor. Asked when order was placed, was advised it was 09/30/22 which was before pt had a chart with [facility]. There is another Dr. Tre Anderson at [facility]. That is where the records came from. The nurses states they will reach out to [facility]. [facility] 10-06-2022 Miscellaneous Notes Name of caller requesting page:Matthew Phone Number of caller: [phone] ext [phone] Facility requesting page: [place] Reason for Page: [...] peer to peer review with their biomedical engineering supervisor. The acceptance date for the peer to peer is on or before 10/08/22 at 3pm. Peer to Peer can be scheduled by call Matthew at [phone] ext [phone] with reference number [id number]. Thank you. Response from Dr. Wright: I have never seen or met the patient Im not sure who needs to be contacted for this patient Reached out to [facility] management. Advised to call Ray back. Spoke with another nurse advisor. Asked when order was placed, was advised it was 09/30/22 which was before pt had a chart with [facility]. There is another Dr. Tre Anderson at [facility]. That is where the records came from. The nurses states they will reach out to [facility]. documented in this encounter [facility] 06-23-2022 Miscellaneous Notes I left a message for Tessie at [facility] regarding their addendum request. If they have Dr. Monets note, they have all the answers they need. Not sure if they have the patient's clinic note. Mendy Adams RN documented in this encounter [facility] 05-19-2022 Note HNO ID: [id number] Author: Nicolás Aggarwal MD Service: ? Author [...] Diagnosis Date DVT (deep venous thrombosis) ([facility]) 2014 post knee replacement Fibromyalgia Hemorrhage of gastrointestinal tract, unspecified Hemorrhage of rectum and anus Internal hemorrhoids without mention of complication Other forms of migraine Other unspecified back disorder Pulmonary embolism ([facility]) 2014 PAST SURGICAL HISTORY Procedure Laterality Date [...] Lungs: No H (more content not included)... [facility] 05-19-2022 Note HNO ID: [id number] Author: RT Charley(R) Service: Radiology Author Type: [...] RT Charley(R) May 19, 2022 10:16 AM [facility] 05-19-2022 History of Presen t [...] Diagnosis Date DVT (deep venous thrombosis) ([facility]) 2013 post knee replacement Fibromyalgia Hemorrhage of gastrointestinal tract, unspecified Hemorrhage of rectum and anus Internal hemorrhoids without mention of complication Other forms of migraine Other unspecified back disorder Pulmonary embolism ([facility]) 2013 PAST SURGICAL HISTORY Procedure Laterality Date [...] records. This note was partially generated using [employer] voice recognition system, and there may be [...] Nicolás Aggarwal M.D. documented in this encounter [facility] 05-19-2022 History of Presen t illness [...] 2022 10:16 AM documented in this encounter [facility] 02-07-2015 Miscellaneous Notes PSR: Please call pt for EDUCATION PROGRAM SPECIALIST Yearly and mammogram. Thanks. Patient received letter for annual mammogram, please place order and have mill order scheduler call her. Patient prefers AM appts. documented in this encounter [facility] Evaluation + Plan note Future Appointments [facility] Evaluation note Diagnosis Other screening mammogram [facility] noteNo assessment information availableWCleveland [facility] Work Phone: Evaluation note* Diagnosis Pes planus of left foot- Primary Primary osteoarthritis of left foot Diabetic neuropathy, painful (HCC) Type II or unspecified type diabetes mellitus with neurological manifestations, not stated as uncontrolled Acquired valgus deformity of left ankle [facility] Diagnosis Onset Date Resolution Status Diabetes chronic High cholesterol chronic Hypertension chronic Obesity chronic Diabetes chronic Hypertension chronic Obesity chronic [facility] Work Phone: Evaluation note* Diagnosis Onset Date Resolution Status NIEVES (dyspnea on exertion) re solved Hypoxia resolved [facility] Work Phone: Evaluation note* Diagnosis Acquired valgus deformity of left ankle- Primary [facility] Diagnosis Pain Generalized pain documented in this encounter [facility] note* Diagnosis Diarrhea, unspecified type- Primary documented in this encounter [facility] Work Phone: Evaluation note* Diagnosis Diarrhea, unspecified type- Primary documented in this encounter [facility] Work Phone: Hospital course Narrative No data available for this section [facility] Hospital Discharge instructions No data available for this section [facility] Progress note No data available for this section [facility] Reason for referral (narrative)* Diagnostic Procedure Only (Routine) - Pending Review Specialty Diagnoses / Procedures Referred By Kelton t Referred To Contact XR IMAGING Diagnoses Acquired valgus deformity of left ankle Procedures XR ANKLE GENERAL 3V AP/LAT/OBL LEFT RADEX ANKLE COMPLETE MINIMUM 3 VIEWS Nicolás [place] [address] [place] [address] Xr Imaging Referral ID Status Reason Start Date Expiration Date Visits Requested Visits Authorized [id number] Pending Review Auto-Generat ed Referral 09/28/2022 10/27/2023 1 1 [facility] for referral (narrative)* Diagnostic Procedure Only (Routine) - Closed Specialty Diagnoses / Procedures Referred By Kelton t Referred To Contact XR IMAGING Diagnoses Pain Procedures XR FOOT GENERAL 3V AP/LAT/OBL LEFT RADEX FOOT COMPLETE MINIMUM 3 VIEWS Nicolás [place] [address] [place] [address] [place] [address] Referral ID Status Reason Start Date Expiration Date V isits Requested Visits Authorized [id number] Closed Auto-Generate d Referral 05/04/2022 06/03/2023 1 1 [facility] Summary Purpose Family History No Family [...] No November 10, 2021 11:41am Power of Transit Planner No November 10 11:41am Advance Directive Response Recorded Date/ Time Advance Directives Yes August 01, 2015 5:05pm Living Will No January 25, 2022 2 :05pm Power of Transit Planner No January 25, 2022 2:05pm Advance Directive Response Recorded Date/ Time Advance Directives Yes August 01, 2015 5:05pm Living Will No January 30, 2022 1 1:58pm Power of Transit Planner No January 30, 2022 11:58pm Advance Directive Response Recorded Date/ Time Advance Directives Yes April 2:05pm Living Will No May 19, 2022 2:05pm Power of Transit Planner No April 2:05pm Advance Directive Response Recorded Date/ Time Advance Directives Yes April 2:05pm Living Will No September 16 5:52pm Power of Transit Planner No September 16, 2022 5:52pm Latest Code [...] RULE OUT PE SOB HYPERGLYCEMIA Chief Complaint hop sorter, 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 Reason for Visit Diabetes High cholesterol Hypertension Obesity Diabetes Hypertension Obesity Chief Complaint 3 M FU RULE OUT DVT HYPOXIA HYPOXIA HYPOXIA SOB Reason for Visit NIEVES (dyspnea on exer tion) Hypoxia Reason for Referral Specialty Diagnoses / Procedures Referred By Kelton t Referred To Contact Gastroenterology Diagnoses Diarrhea, unspecified type Procedures Colonoscopy Screening; Average Risk Patient HI COLONOSCOPY FLX DX W/COLLJ SPEC WHEN PFRMD HI COLON CA SCRN NOT HI RSK IND HI COLORECTAL SCRN; HI RISK IND HI COLONOSCOPY W/BIOPSY SINGLE/MULTIPLE HI COLSC FLX W/RMVL OF TUMOR POLYP LESION SNARE TQ HI COLSC FLX W/REMOVAL LESION BY HOT BX FORCEPS Renita Mijares, DO [address] [facility], [address] [place] [address] Referral ID Status Reason Start Date Expiration Date V isits Requested Visits Authorized [id number] Authorized 07/26/2023 07/25/2024 1 1 Additional Source Comments INFORMATION SOURCE (unrecogn ized section and content) DATE CREATED AUTHOR 05/09/2019 [facility] DATE CREATED AUTHOR AUTHOR'S ORGANIZ ATION 05/09/2019 [facility] DATE CREATED AUTHOR AUTHOR'S ORGANIZ ATION 02/13/2020 [facility] DATE CREATED AUTHOR AUTHOR'S ORGANIZ ATION 05/27/2021 [facility] DATE CREATED AUTHOR AUTHOR'S ORGANIZ ATION 06/26/2022 [facility] DATE CREATED AUTHOR AUTHOR'S ORGANIZ ATION 03/07/2023 [facility] DATE CREATED AUTHOR AUTHOR'S ORGANIZ ATION 09/08/2023 [facility] DATE CREATED AUTHOR AUTHOR'S ORGANIZ ATION 11/07/2023 [facility] DATE CREATED AUTHOR AUTHOR'S ORGANIZ ATION 03/14/2025 [facility] Source Comments (unrecognize d section and content) In the event this informatio n is protected by the Federal Confidentiality of Alcohol and Drug Abuse Patient Records regulations: The Federal rules restrict any use of the information to criminally investigate or prosecute any alcohol or drug abuse patient.[facility] the event this information is protected by the Federal Confidentiality of Alcohol and Drug Abuse Patient Records regulations: The Federal rules restrict any use of the information to criminally investigate or prosecute any alcohol or drug abuse patient.[facility] the event this information is protected by the Federal Confidentiality of Alcohol and Drug Abuse Patient Records regulations: The Federal rules restrict any use of the information to criminally investigate or prosecute any alcohol or drug abuse patient.[facility] the event this information is protected by the Federal Confidentiality of Alcohol and Drug Abuse Patient Records regulations: The Federal rules restrict any use of the information to criminally investigate or prosecute any alcohol or drug abuse patient.[facility] the event this information is protected by the Federal Confidentiality of Alcohol and Drug Abuse Patient Records regulations: The Federal rules restrict any use of the information to criminally investigate or prosecute any alcohol or drug abuse patient.[facility] Reason for Visit (unrecogniz ed section and content) Reason Onset Date Comments Yearly Exam With Mammogram 02/07/2015 Reason Comments New Reason Onset Date Comments Question 06/23/2022 Reason Comments Radio Gen RMP Specialty Diagnoses / Procedures Referred By Contac t Referred To Contact XR IMAGING Diagnoses Pain Procedures XR FOOT GENERAL 3V AP/LAT/OBL LEFT RADEX FOOT COMPLETE MINIMUM 3 VIEWS Nicolás [place] [address] [place] [address] [place] [address] Referral ID Status Reason Start Date Expiration Date V isits Requested Visits Authorized [id number] Closed Auto-Generate d Referral 05/04/2022 06/03/2023 1 1 Specialty Diagnoses / Procedures Referred By Contac t Referred To Contact Diagnoses Diarrhea, unspecified Procedures HI COLONOSCOPY FLX DX W/COLLJ SPEC WHEN PFRMD HI COLONOSCOPY W/BIOPSY SINGLE/MULTIPLE HI COLSC FLX W/RMVL OF TUMOR POLYP LESION SNARE TQ HI COLSC FLX W/REMOVAL LESION BY HOT BX FORCEPS [facility] [address] [place] [address] [phone] Referral ID Status Reason Start Date Expiration Date Visits Re quested Visits Authorized [id number] 1 1 Reason Onset Date Comments Referral [...] Care Teams (unrecognized sec tion and content) Corrections Caseworker Relationship Specialty Start Date End Date Rica Padgett DO [address] [place], [place] [id number] PCP - General Family Medicine 04/09/19 Corrections Caseworker Relationship Specialty Start Date End Date Rica Padgett DO [address] [place], [place] [id number] PCP - General Family Medicine 04/09/19 Team [...] MD Attending Provider, Referrin g Provider Active Corrections Caseworker Relationship Specialty Start Date End Date Rica Padgett DO [address] [place] [address] PCP - General Family Medicine 04/09/19 Corrections Caseworker Relationship Specialty Start Date End Date AmishRica montero DO [address] [place] [address] PCP - General Family Medicine 04/09/19 Corrections Caseworker Relationship Specialty Start Date End Date Rica Padgett DO [address] [place] [address] PCP - General Family Medicine 09/06/23 Corrections Caseworker Relationship Specialty Start Date End Date Rica Padgett DO [address] [place] [address] PCP - General Family Medicine 09/06/23 Corrections Caseworker Relationship Specialty Start Date End Date Erin Saunders [address] [place] [address] PCP - General [facility] 10/01/22 Corrections Caseworker Relationship Specialty Start Date End Date Erin Saunders [address] [facility] [place] [address] PCP - General Family [facility] 10/01/22 FOR RECORDS PERTAINING TO PATIENTS [...] BE BASED ON THE PRIMARY CLINICAL RECORDS. [facility] [employer] [facility]. provides no warranty or guarantee of the accuracy or completeness of information in this document.
--- NOTE | 2025-03-15 23:03 | EDS_ITS ---
HPI History of Present Illness Chief Complaint: Confusion Informant: patient and family Narrative Narrative: Patient is a 64-year-old female with history of diabetes mellitus, hypertension, anxiety, chronic pain, hypertension, thyroid disease and depression presenting with increased confusion, auditory visual hallucinations and increased sleepiness. Family notes that she sleeps a lot however the past week her symptoms have worsened. She cannot stay awake for more than a couple hours a day and sleeping for 20 hours at a time. She will take her morning medications and then sleep through her afternoon and evening medications and then take her nighttime medicines and then the cycle start all over again. Denies any recent medication changes. No report of any fevers. No nausea or vomiting. No falls or head injuries. Notes that her bowel movements have been a little loose lately. Does have some urinary frequency and urgency but it is hard to tell how acute it is. Patient does have obstructive sleep apnea and wears BiPAP at night. Denies any chest pain or shortness of breath. Family describes auditory visual hallucinations as seeing shadows and thinking that her left the room when he still sitting right next to her. 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 Hallux rigidus, left foot MRSA infection Uses wheelchair Walker as ambulation aid High cholesterol CPAP (continuous positive airway pressure) dependence Sleep apnea Hypothyroidism Anxiety disorder, unspecified Chronic pain Depressive 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 Obesity hypoventilation syndrome Obesity Normal stress echocardiogram Wears glasses PTSD (post-traumatic stress disorder) Depression Anxiety Thyroid disease Insulin dependent diabetes mellitus Ambulates with cane Fibromyalgia Arthritis DVT (deep venous thrombosis) High cholesterol Migraine headache Back pain Gait instability Syncope Dietary restriction History of diverticulitis Gastric reflux Former smoker ASV (adaptive servo-ventilation) use counseling On home oxygen therapy Shortness of breath on exertion Leg cramps History of pain when walking History of edema History of stress test Hypertension Implantable intrathecal infusion pump present Mixed connective tissue disease Osteoarthritis History of DVT (deep vein thrombosis) History of pulmonary embolus (PE) Atrophic vaginitis Bone spur Osteoarthritis calcium calcifications Mixed connective tissue disease History of neuropathy History of spinal stenosis History of diabetes mellitus Acromioclavicular arthrosis Strain of shoulder, left Neck pain Limb weakness Difficulty balancing Fatigue Shoulder pain Gastroesophageal reflux disease DJD (degenerative joint disease) of lumbar spine Home Medications ?Medication ?Instructions ?Recorded ?Last Taken ?Type omeprazole 40 mg capsule,delayed 40 mg PO DAILY GERD 0 08/30/13 02/20/24 History release trazodone 100 mg tablet 100 mg PO QHS mood 08/30/13 02/19/24 History levothyroxine 50 mcg tablet 50 mcg PO DAILY thyroid 09/15/22 History simvastatin 20 mg tablet 20 mg PO DAILY cholesterol 0 10/21/17 02/20/24 History atenolol 25 mg tablet 25 mg PO DAILY heart 9 02/18/24 History methotrexate sodium 2.5 mg tablet 20 mg PO FR fibromya lgia 08/19/20 09/10/22 History leucovorin calcium 10 mg tablet 5 mg PO FR supplement 12/08/20 09/10/22 History cholecalciferol (vitamin D3) 25 25 mcg PO DAILY supple ment 09/13/22 09/15/22 History mcg (1,000 unit) capsule lisinopril 20 mg tablet 20 mg PO DAILY blood pressur e #30 09/17/22 Unknown Rx tabs hydroxyzine pamoate 50 mg capsule 50 mg PO QHS mood #3 0 caps 09/07/23 Unknown Rx clonidine HCl 0.1 mg tablet 0.1 mg PO Q8H PRN PRN 07/0 02/1902/20/24 13:30 Rx Anxiety/tremors #1 TAB folic acid 1 mg tablet 1 mg PO BREAKFAST #30 tabs 0 03/03/24 Unknown Rx insulin lispro 100 unit/mL See Rx Instructions .Route 03/03/24 Unknown Rx subcutaneous pen (Humalog KwjackiPen .COMPLEX diabetes #1 5 mL (U-100) Insulin) lorazepam 1 mg tablet 1 mg PO TID mood 05/07/24 Un known History oxycodone-acetaminophen 5 mg-325 1 tab PO BID 07/27/24 Unknown History mg tablet tizanidine 4 mg tablet 4 mg PO TID 07/27/24 Unknown History lancets-blood glucose test #1 ea 07/28/24 Unknown Rx strips-pen needles with gauze kit gabapentin 100 mg capsule 100 mg PO TID nerve pain 90 days 09/03/24 Unknown Rx #270 caps blood-glucose sensor (FreeStyle #6 ea 09/21/24 Unknown Rx Prema 3 Plus Sensor device) sumatriptan succinate 25 mg tablet See Rx Instructions PO .COMPLEX 10/12/24 Unknown Rx (Imitrex) #10 tabs semaglutide 1 mg/dose (4 mg/3 mL) 1 mg (0.75 mL) subcu t QWEEK #3 mL 10/30/24 Unknown Rx subcutaneous pen injector (Ozempic) insulin glargine-yfgn 100 unit/mL 52 unit (0.52 mL) blanchard bcut QHS 11/12/24 Unknown Rx (3 mL) subcutaneous pen diabetes #5 pens escitalopram oxalate 20 mg tablet 20 mg PO DAILY for d epressive 03/05/25 Unknown Rx disorder #90 TABLETS insulin lispro 100 unit/mL 38 unit subcut TIDWMEAL Unknown History subcutaneous pen (Humalog KwikPen (U-100) Insulin) Allergy/AdvReac Type Severity Reaction Status Date / Time niacin Allergy Itching Verified 03/15/25 17:14 venlafaxine AdvReac Severe Vomiting Verified 03/15/25 17:14 metformin AdvReac Intermediate Diarrhea Verified 03/15/25 17:14 cephalexin (From Keflex) AdvReac Other Verified 03/15/25 17:14 Family History Sister Breast cancer Diabetes Kidney disease Other Arthritis Heart disease Surgical History History of bunionectomy of both great toes History of lumbar fusion History of total right knee replacement Hx of surgical procedure Hx of arthroscopic knee surgery History of carpal tunnel release Hx of hysterectomy History of back surgery Hx of total knee replacement hx of plantar fasciotomy Social History household members: spouse Smoking Status: Former smoker alcohol intake: never substance use type: does not use caffeine: No what type of physical activity do you participate in: none seatbelt use: always do you feel safe at home: Yes additional social history: [id number] at [employer] Patient is disabled ROS ROS ED Constitutional Constitutional ED: Denies chills or fever(s) Eyes Eyes: Denies change in vision Respiratory/Chest Respiratory/Chest: Denies cough or dyspnea Gastrointestinal Gastrointestinal: Denies abdominal pain, nausea or vomiting Genitourinary Genitourinary ED: Reports urinary frequency Musculoskeletal Musculoskeletal: Reports back pain and other Details: Chronic back pain Integumentary Denies rash Neurologic Neurologic: Reports weakness; Denies headache(s) or paresthesias Psychiatric Psychiatric: Reports anxiety and depression; Denies suicidal ideation or suicidal thoughts Hematologic/Lymphatic Hematologic/Lymphatic: Denies easy bleeding or easy bruising EXAM Physical Exam Const Vital Signs: 03/15/25 17:14 03/15/25 17:25 03/15/25 17:43 Temperature 98.3 F Temperature Source Oral Pulse Rate 64 69 Respiratory Rate 16 16 Respiratory Pattern Normal Blood Pressure 137/63 H 166/71 H Blood Pressure Mean 87 102 Pulse Ox 93 100 Oxygen Delivery Method Room Air Room Air 03/15/25 19:14 03/15/25 21:00 Temperature Temperature Source Pulse Rate 58 L 61 Respiratory Rate 18 91 H Respiratory Pattern Blood Pressure 130/64 H 120/109 H Blood Pressure Mean 86 112 Pulse Ox 91 Oxygen Delivery Method Room Air Room Air Positive well nourished and well developed General Appearance ED: well developed HEENT Reports dry mucous membranes Mouth ED: Yes dry mucous membranes Mouth: dry mucous membranes Neck supple and no JVD Chest Wall inspection of chest normal and palpation of chest normal Resp normal respiratory effort and clear to auscultation bilaterally Cardio regular rate, regular rhythm and no murmurs GI normal to inspection, nondistended, normoactive bowel sounds and non-tender Extremity normal to inspection General Extremety ED: Negative for edema General Extremity: Negative for edema Neuro oriented x3 Neuro Narrative: Patient falls back asleep quickly but does answers questions mostly appropriately. Is slow to respond. Knows that it is Tuesday and it is February and has a hard time telling me the day of the month. Knows who the president is. Knows she is in the hospital. Moves all extremities. Normal coordination. No slurred speech. Sensorium / Orientation: alert Motor Exam: general weakness Psych mental status grossly normal Skin no rashes or lesions noted and no wounds MDM MDM MDM Narrative Medical decision making narrative: Patient evaluated for increased somnolence and confusion. Differential includes metabolic encephalopathy, electrolyte derangement, elevated ammonia level, medication reaction, polypharmacy, DKA, HHNK, hypercapnic respiratory failure, intracranial hemorrhage, brain mass and infection such as pneumonia or urinary tract infection. Workup including CBC, CMP, ammonia level, urinalysis and lipase as well as urinalysis is obtained. CBC unremarkable. CMP shows transaminitis with AST of 60 and ALT of 41 with a mildly elevated alkaline phosphatase of 117. These changes are chronic for patient. VBG obtained which shows a normal pH and a mildly elevated pCO2 consistent with some chronic hypercapnia which is compensated for. Urinalysis is concerning with infection for with 10-25 white blood cells and 2+ bacteria however there is some contamination. Will send for culture but treat with Bactrim as patient does have a Keflex allergy listed. CT of the brain does not show any acute process. Given that she does not have any hypoxia and has clear breath sounds I do not think she requires a chest x-ray at this time. Ammonia level is normal so lower suspicion for hepatic encephalopathy. Medication list from patient is reviewed and patient is on multiple sedating med ications. I suspect there is component of polypharmacy as well. Case is discussed with hospitalist for admission. Spoke with Dr. Meyer. Will start the patient on her home BiPAP as she is sleeping. Family is agreeable to admission. Urine cultures pending at this time Lab Data Attestation: I reviewed the patient's lab results. Labs: Laboratory Results - last 24 hr 03/15/25 03/15/25 03/15/25 17:29 18:11 19:25 WBC 9.1 RBC 4.49 Hgb 13.0 Hct 39.5 MCV 88.0 MCH 29.0 MCHC 32.9 RDW Std Deviation 43.7 RDW Coeff of Mouna 13.7 Plt Count 234 MPV 9.5 Immature Gran % (Auto) 0.600 Neut % (Auto) 59.2 Lymph % (Auto) 30.4 [place] % (Auto) 6.4 Eos % (Auto) 2.8 Baso % (Auto) 0.6 Absolute Neuts (auto) 5.4 Absolute Lymphs (auto) 2.75 Nucleated RBC % 0 Sodium 137 Potassium 3.9 Chloride 101 Carbon Dioxide 23.9 Anion Gap 12 BUN 15 Creatinine 0.64 L Estim Creat Clear Calc 87.16 Est GFR (MDRD) Non-Af 97 BUN/Creatinine Ratio 22.8 H Glucose 239 H Hemoglobin A1c 11.7 H Calcium 8.6 Total Bilirubin 0.25 AST 60 H ALT 41 H Alkaline Phosphatase 117 H Ammonia 30.7 Total Protein 6.6 Albumin 3.5 Globulin 3.1 Albumin/Globulin Ratio 1.1 Lipase 33 Urine Color Urine Clarity Urine pH Ur Specific [place] Urine Protein Urine Glucose (UA) Urine Ketones Urine Occult Blood Urine Nitrite Urine Bilirubin Urine Urobilinogen Ur Leukocyte Esterase Urine RBC Urine WBC Ur Squamous Epith Cells Urine Bacteria Urine Mucus POC Glucose 250 H 03/15/25 19:44 WBC RBC Hgb Hct MCV MCH MCHC RDW Std Deviation RDW Coeff of Mouna Plt Count MPV Immature Gran % (Auto) Neut % (Auto) Lymph % (Auto) [place] % (Auto) Eos % (Auto) Baso % (Auto) Absolute Neuts (auto) Absolute Lymphs (auto) Nucleated RBC % Sodium Potassium Chloride Carbon Dioxide Anion Gap BUN Creatinine Estim Creat Clear Calc Est GFR (MDRD) Non-Af BUN/Creatinine Ratio Glucose Hemoglobin A1c Calcium Total Bilirubin AST ALT Alkaline Phosphatase Ammonia Total Protein Albumin Globulin Albumin/Globulin Ratio Lipase Urine Color Yellow Urine Clarity Sl. Cloudy Urine pH 5.0 Ur Specific [place] 1.025 Urine Protein 30 H Urine Glucose (UA) 250 H Urine Ketones 5 H Urine Occult Blood 10 H Urine Nitrite Negative Urine Bilirubin Negative Urine Urobilinogen Normal Ur Leukocyte Esterase 500 H Urine RBC 0 SEEN Urine WBC 10-25 SEEN Ur Squamous Epith Cells 5-10 SEEN Urine Bacteria 2+ Urine Mucus 0 SEEN POC Glucose ABG Data ABG results: ABG 03/15/25 18:18 Specimen Type REJI Sample Site Not entered VBG pH 7.41 VBG pO2 58 H VBG HCO3 30 H VBG Total CO2 32 VBG O2 Sat (Calc) 89 H VBG Base Excess 6 H POC Mix VBG pCO2 Pt Tmp 48.2 O2 Delivery Device Not entered Radiography Diagnostic Testing: Clinical Impression(s) from Imaging Studies Brain CT 03/15/25 19:17 IMPRESSION: No acute abnormality Reading Location: [facility] Rhythm Strip Rhythm Strip: Sinus Rhythm Rate: 58 Ectopy: None EKG Initial EKG: Attestation: I personally reviewed and interpreted this EKG as follows: Interpretation: Sinus Rhythm Comments: Sinus bradycardia at a rate of 58 bpm Normal axis Normal intervals Nonspecific T wave inversion in V1 and V2 with no reciprocal changes Prior EKG tracings: available for review Prior: Unchanged Management Discussion w/another healthcare provider: Hospitalist Discharge Plan Dx/Rx/DC Orders Clinical Impression: Uncontrolled diabetes mellitus, Toxic metabolic encephalopathy, Acute UTI, Polypharmacy Disposition Disposition: Acute Care Hospital [facility] Discharge Date/Time: 03/15/25 21:57
[2025-03-15 23:13] LABS: Magnesium 1.8 mg/dL (1.5-2.2)
--- NOTE | 2025-03-15 23:40 | CPS ---
Patient set up with own PAP machine for the night.
[2025-03-15] MEDS: Lactobacillis Acidophilus 1 CAP PO (23:55)
[2025-03-15] MEDS: Aztreonam 1 GM 1 GM in 0.9% Normal Saline (50mL MB+) 50 ML IV (23:56)
[2025-03-15] MEDS: Insulin Glargine-YFGN 100 UNIT/ML Pen 32 UNIT SC (23:56)
[2025-03-15] MEDS: 0.9% Normal Saline (1000mL) 1,000 ML 100 ML IV (23:56)
[2025-03-16 00:02] LABS: Vitamin B12 709 pg/mL (180-914)
[2025-03-16 06:00] VITALS: BP 147/72; PULSE 68; RESP 16; TEMP 36.4; O2SAT 94
[2025-03-16 06:44] VITALS: O2SAT 93
[2025-03-16 06:59] LABS: Hematocrit 40.6 % (37-47); Hemoglobin 13.1 g/dL (12.0-15.0); Immature Granulocytes Count 0.040 X10^3/uL (0.0-0.0); Mean Corp Hgb Conc 32.3 g/dL (32-36); Mean Corpuscular Volume 90.0 fL (81-99); Mean Platelet Vol. 9.2 fl (6.2-12.0); NRBC Flagged by Analyzer 0 % (0-5); Platelet Count 221 K/mm3 (150-450); RBC Distribution Width CV 13.9 % (11.6-14.6); RBC Distribution Width SD 45.9 fl (35.1-43.9); Red Blood Count 4.51 M/mm3 (4.2-5.4); White Blood Count 7.0 K/mm3 (4.4-11.0)
[2025-03-16 07:31] LABS: AST(SGOT) 71 U/L (<=31); Alanine Aminotransfer ALT/SGPT 42 U/L (<=34); Albumin, Serum 3.5 g/dL (3.4-4.8); Alkaline Phosphatase 114 U/L (35-104); Anion Gap 10 (5-15); BUN 11 mg/dL (4-19); BUN/Creat Ratio 16.5 RATIO (10-20); Calcium,Total 8.6 mg/dL (7.6-11.0); Carbon Dioxide 26.0 mmol/L (21.0-32.0); Chloride 103 mmol/L (98-108); Cholesterol 168 mg/dL (<=200); Estimated Creatinine Clearance 88.47 ml/min (50-250); Globulin 3.1 g/dL (2.2-4.2); Glucose 223 mg/dL (70-99); Low Density Lipoprotein Calc. -17 mg/dL; Potassium 4.2 mmol/L (3.3-5.1); Triglycerides 793 mg/dL; Very Low Density Lipoprotein 159 mg/dL (5-40); cholesterol:hdl ratio screen 6.32
[2025-03-16 08:39] LABS: FOLATES,SERUM (FOLIC ACID) 28.80 ng/mL (4.60-34.80)
[2025-03-16] MEDS: Lactobacillis Acidophilus 1 CAP PO ×4 (08:59→21:03)
[2025-03-16] MEDS: Cholecalciferol (VIT D3) 25 MCG TABLET (1,000 UNITS) PO (09:00)
[2025-03-16] MEDS: Aztreonam 1 GM 1 GM in 0.9% Normal Saline (50mL MB+) 50 ML IV (09:10)
[2025-03-16 09:43] VITALS: BP 143/75; PULSE 72; RESP 18; TEMP 36.8; O2SAT 92
--- NOTE | 2025-03-16 09:56 | PCM.PN.HOSP ---
Reason for Visit Chief Complaint: Confusion. Objective Data Objective Data Vital Signs: Vital Signs Temp Pulse Resp BP Pulse Ox O2 Del Method 97.6 F L 68 16 147/72 H 94 Room Air 03/16/25 06:00 03/16/25 06:00 03/16/25 06:00 03/16/25 06:00 03/16/25 06:00 03/16/25 06:00 Oxygen Delivery Method Room Air Weight: 265 lb 10.512 oz Body Mass Index (BMI) 45.6 Intake & Output: Intake and Output for Last 24 Hours 03/14/25 03/15/25 03/16/25 23:59 23:59 23:59 Intake Total 1000 / 1000 1100.00 / 1100.00 Balance 1000 / 1000 1100.00 / 1100.00 Lab / Micro Data 03/16/25 06:20 03/16/25 06:20 Labs: Laboratory Results - last 24 hr 03/15/25 17:29: POC Glucose 250 H 03/15/25 18:11: WBC 9.1, RBC 4.49, Hgb 13.0, Hct 39.5, MCV 88.0, MCH 29.0, MCHC 32.9, RDW Std Deviation 43.7, RDW Coeff of Mouna 13.7, Plt Count 234, MPV 9.5, Immature Gran % (Auto) 0.600, Neut % (Auto) 59.2, Lymph % (Auto) 30.4, [place] % (Auto) 6.4, Eos % (Auto) 2.8, Baso % (Auto) 0.6, Absolute Neuts (auto) 5.4, Absolute Lymphs (auto) 2.75, Nucleated RBC % 0, Sodium 137, Potassium 3.9, Chloride 101, Carbon Dioxide 23.9, Anion Gap 12, BUN 15, Creatinine 0.64 L, Estim Creat Clear Calc 87.16, Est GFR (MDRD) Non-Af 97, BUN/Creatinine Ratio 22.8 H, Glucose 239 H, Hemoglobin A1c 11.7 H, Calcium 8.6, Magnesium 1.8, Total Bilirubin 0.25, AST 60 H, ALT 41 H, Alkaline Phosphatase 117 H, Total Protein 6.6, Albumin 3.5, Globulin 3.1, Albumin/Globulin Ratio 1.1, Lipase 33, Vitamin B12 709, TSH 1.540 03/15/25 19:25: Ammonia 30.7 03/15/25 19:44: Urine Color Yellow, Urine Clarity Sl. Cloudy, Urine pH 5.0, Ur Specific [place] 1.025, Urine Protein 30 H, Urine Glucose (UA) 250 H, Urine Ketones 5 H, Urine Occult Blood 10 H, Urine Nitrite Negative, Urine Bilirubin Negative, Urine Urobilinogen Normal, Ur Leukocyte Esterase 500 H, Urine RBC 0 SEEN, Urine WBC 10-25 SEEN, Ur Squamous Epith Cells 5-10 SEEN, Urine Bacteria 2+, Urine Mucus 0 SEEN 03/15/25 23:20: POC Glucose 204 H 03/16/25 06:20: WBC 7.0, RBC 4.51, Hgb 13.1, Hct 40.6, MCV 90.0, MCH 29.0, MCHC 32.3, RDW Std Deviation 45.9 H, RDW Coeff of Mouna 13.9, Plt Count 221, MPV 9.2, Immature Gran % (Auto) 0.600, Neut % (Auto) 53.7, Lymph % (Auto) 35.5, [place] % (Auto) 6.4, Eos % (Auto) 3.1, Baso % (Auto) 0.7, Absolute Neuts (auto) 3.8, Absolute Lymphs (auto) 2.48, Nucleated RBC % 0, Sodium 139, Potassium 4.2, Chloride 103, Carbon Dioxide 26.0, Anion Gap 10, BUN 11, Creatinine 0.68 L, Estim Creat Clear Calc 88.47, Est GFR (MDRD) Non-Af 96, BUN/Creatinine Ratio 16.5, Glucose 223 H, Calcium 8.6, Phosphorus 3.6, Total Bilirubin 0.31, AST 71 H, ALT 42 H, Alkaline Phosphatase 114 H, Total Protein 6.6, Albumin 3.5, Globulin 3.1, Albumin/Globulin Ratio 1.1, Triglycerides 793 H, Cholesterol 168, LDL Cholesterol, Calc -17, VLDL Cholesterol 159 H, HDL Cholesterol 27 L, Cholesterol/HDL Ratio 6.32, Serum Folate 28.80 ABG Data ABG results: ABG 03/15/25 18:18 Specimen Type REJI Sample Site Not entered VBG pH 7.41 VBG pO2 58 H VBG HCO3 30 H VBG Total CO2 32 VBG O2 Sat (Calc) 89 H VBG Base Excess 6 H POC Mix VBG pCO2 Pt Tmp 48.2 O2 Delivery Device Not entered Radiography Diagnostic Testing: Radiology Impression Brain CT 03/15/25 19:17 IMPRESSION: No acute abnormality Reading Location: [facility] Rhythm Strip Rhythm Strip: Sinus Rhythm Rate: 58 Ectopy: None Physical Exam Narrative Seen and examined. Patient is states she sleeps about 8 to 10 hours at night and 2 hours during afternoon. Currently complaining of headache. Admits that she is having burning micturition for 2 to 3 weeks along with increased frequency and urgency. Patient has increased thirst General: Alert, Oriented x3, Cooperative HEENT: Atraumatic, PERRLA, EOMI, Normocephalic. Oral: No Gingival or Mucosal Lesions/ Ulcerations Neck: Supple, No JVD, Negative Carotid Bruits Chest wall/Lungs: Air entry diminished in bilateral lung bases. No crepitation/rhonchi Cardiovascular: Regular rate and rhythm, Normal S1,S2, No M/G/R Abdomen: Bowel Sounds Present, Soft, Non Tender, Non-Distended : No dysuria. No renal angle tenderness. No suprapubic tenderness. Extremities: No edema, Capillary Refill Less than 3 Seconds Skin: No rashes, No breakdown Musculoskeletal: No Tenderness to Palpation of Joints or Extremities Neurological: Cranial nerves II-XII grossly intact, DTR 2+/4. No acute focal neurological deficit. Psych/Mental Status: Normal Affect, Appropriate. Assessment & Plan Assessment/Plan (1) Acute cystitis without hematuria: (2) Polypharmacy: (3) Toxic metabolic encephalopathy: (4) Morbid obesity with BMI of 40.0-44.9, adult: (5) Sleep apnea: QUALIFIERS: Sleep apnea type: unspecified type Qualified Code(s): G47.30 - Sleep apnea, unspecified (6) CPAP (continuous positive airway pressure) dependence: (7) Chronic osteoarthritis: (8) Chronic pain: QUALIFIERS: Chronic pain type: chronic pain syndrome Qualified Code(s): G89.4 - Chronic pain syndrome PLAN: Plan 64-year-old female brought to ED for confusion, fatigue, visual and auditory hallucinations, increased somnolence sleeping 20 hours a day wakes only for medication intake with increased thirst and urination. History of DM. 1. Lower intact symptoms of increased frequency urgency and burning micturition suggestive of acute cystitis without hematuria - Admit to PCU. We will treat with IV Azactam given patient's listed allergy to cephalexin and drug intolerance with quinolones potentially interacting with her other antidepressant medications. UA positive of pyuria, LE but nitrite negative. Prelim urine culture shows gram-positive cocci 11,000-25,000 colonies. Patient is not allergic to aztreonam but do blood test with that therefore therefore she is not allergic. 2. Toxic/Metabolic Encephalopathy in the setting of Polypharmacy complicating #1 -medication reconciliation done. Hold Lexapro. Trazodone decreased to 50 mg daily at bedtime. Serum folate normal. 3. Morbid (class III) obesity; with BMI of 44.5 this admission on semaglutide plus SEDA; on BiPAP adding to the burden disease outlined in #1 & #2 - Weight loss will be recommended. Check TSH. This complicates her case and may hamper recovery. 4. OA; with chronic debility and chronic pain syndrome on prn oxycodone-acetaminophen BID - PT/OT and Case Management to consult and treat on rounds in a.m. in case patient would benefit from subacute rehabilitation of help appreciated in advance. 5. Essential hypertension; on lisinopril, atenolol and prn clonidine - Continue home regimen plus give as needed IV hydralazine for systolic blood pressure greater than 160 with 6. Hyperlipidemia; on simvastatin -triglyceride very high 793. LDL 70 normal. VLDL high, HDL low. On atorvastatin 10 mg daily discontinued per started on fenofibrate 48 mg daily. 7. Hypothyroidism; on levothyroxine - Maintain levothyroxine. TSH normal 1.54. 8. Former tobacco abuse; (quit ~1993) - Noted. 9. DM-2; of unknown control on insulin glargine 52U sq q. PM and insulin lispro 40U sq TID AC - Cut long-acting insulin glargine dose by approximately 30%. Continue premeal insulin lispro as previous. Check hemoglobin A1c to objectively evaluate quality of diabetic control. A1c 11.7 g%. 10. Diabetic neuropathy; on gabapentin TID - Resume gabapentin as previous. Migraine headaches; on prn sumatriptan - Give sumatriptan as needed if migraine headache should recur. Complain of mild headache. Started on Fioricet 13. GERD; on omeprazole - Maintain PPI. 14. Depression with anxiety; on escitalopram, trazodone, lorazepam prn TID plus hydroxyzine q. HS - Hold lorazepam and hydroxyzine but continue escitalopram and trazodone as previous. 15. History of fibromyalgia; on MTX - Noted. 16. Muscle spasms; on tizanidine TID - Hold this agent until further notice. 17. DVT prophylaxis - Enoxaparin 40 mg subcu twice daily plus SCDs. Microbiology Past 72 Hours 03/15/25 19:44 Urine, Clean Catch Urine Culture - Preliminary Gram Positive Cocci Laboratory Results 03/15/25 17:29: POC Glucose 250 H 03/15/25 18:11: WBC 9.1, RBC 4.49, Hgb 13.0, Hct 39.5, MCV 88.0, MCH 29.0, MCHC 32.9, RDW Std Deviation 43.7, RDW Coeff of Mouna 13.7, Plt Count 234, MPV 9.5, Immature Gran % (Auto) 0.600, Neut % (Auto) 59.2, Lymph % (Auto) 30.4, [place] % (Auto) 6.4, Eos % (Auto) 2.8, Baso % (Auto) 0.6, Absolute Neuts (auto) 5.4, Absolute Lymphs (auto) 2.75, Nucleated RBC % 0, Sodium 137, Potassium 3.9, Chloride 101, Carbon Dioxide 23.9, Anion Gap 12, BUN 15, Creatinine 0.64 L, Estim Creat Clear Calc 87.16, Est GFR (MDRD) Non-Af 97, BUN/Creatinine Ratio 22.8 H, Glucose 239 H, Hemoglobin A1c 11.7 H, Calcium 8.6, Magnesium 1.8, Total Bilirubin 0.25, AST 60 H, ALT 41 H, Alkaline Phosphatase 117 H, Total Protein 6.6, Albumin 3.5, Globulin 3.1, Albumin/Globulin Ratio 1.1, Lipase 33, Vitamin B12 709, TSH 1.540 03/15/25 18:18: Specimen Type REJI, Sample Site Not entered, VBG pH 7.41, VBG pO2 58 H, VBG HCO3 30 H, VBG Total CO2 32, VBG O2 Sat (Calc) 89 H, VBG Base Excess 6 H, POC Mix VBG pCO2 Pt Tmp 48.2, O2 Delivery Device Not entered 03/15/25 19:25: Ammonia 30.7 03/15/25 19:44: Urine Color Yellow, Urine Clarity Sl. Cloudy, Urine pH 5.0, Ur Specific [place] 1.025, Urine Protein 30 H, Urine Glucose (UA) 250 H, Urine Ketones 5 H, Urine Occult Blood 10 H, Urine Nitrite Negative, Urine Bilirubin Negative, Urine Urobilinogen Normal, Ur Leukocyte Esterase 500 H, Urine RBC 0 SEEN, Urine WBC 10-25 SEEN, Ur Squamous Epith Cells 5-10 SEEN, Urine Bacteria 2+, Urine Mucus 0 SEEN 03/15/25 23:20: POC Glucose 204 H 03/16/25 06:20: WBC 7.0, RBC 4.51, Hgb 13.1, Hct 40.6, MCV 90.0, MCH 29.0, MCHC 32.3, RDW Std Deviation 45.9 H, RDW Coeff of Mouna 13.9, Plt Count 221, MPV 9.2, Immature Gran % (Auto) 0.600, Neut % (Auto) 53.7, Lymph % (Auto) 35.5, [place] % (Auto) 6.4, Eos % (Auto) 3.1, Baso % (Auto) 0.7, Absolute Neuts (auto) 3.8, Absolute Lymphs (auto) 2.48, Nucleated RBC % 0, Sodium 139, Potassium 4.2, Chloride 103, Carbon Dioxide 26.0, Anion Gap 10, BUN 11, Creatinine 0.68 L, Estim Creat Clear Calc 88.47, Est GFR (MDRD) Non-Af 96, BUN/Creatinine Ratio 16.5, Glucose 223 H, Calcium 8.6, Phosphorus 3.6, Total Bilirubin 0.31, AST 71 H, ALT 42 H, Alkaline Phosphatase 114 H, Total Protein 6.6, Albumin 3.5, Globulin 3.1, Albumin/Globulin Ratio 1.1, Triglycerides 793 H, Cholesterol 168, LDL Cholesterol, Calc -17, VLDL Cholesterol 159 H, HDL Cholesterol 27 L, Cholesterol/HDL Ratio 6.32, Serum Folate 28.80 Charges/Coding Visit Charges Inpatient E&M: 52079 Subs Hosp L2
--- NOTE | 2025-03-16 11:12 | CASEMGMT ---
Addendum entered by Shelbi Mccarthy 03/16/25 12:40: Pt reports she can have a portable tank brought in from home for dc home. Original Note: SAM RUSH Assessment: Face to Face with pt for initial transition planning/care coordination assessment. SAM RUSH introduced self and role at [facility], pt voices understanding and consents to assessment. Pt is A&O x3 and answers all questions appropriately at this time, somewhat slow. Care providers, pharmacy, and demographics verified/updated. Admitting Dx: UTI and toxic/metabolic encephalopathy Strata Score: 3 PCP:Lorin Specialists:Colin, pulm; Kristi, pod; See, psych; Joseph, endo Preferred Pharmacy: [facility] Insurance: [employer], [employer] Prescription Benefit: yes LNOK: Claude Savage, ; Irma Casanova, dtr Living Arrangements: Pt lives with and dtr and granddtr every other week. Pt reports she is I in ADLs and assists in laundry and getting groceries. Pt prepares meals. Pt denies concerns at home. Transportation: Pt drives self and denies concerns with transportation. Pt states her family does not want her to drive currently and they can transport her. 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 Pt has been to [facility] Rehab unit and [facility]. Pt states no concerns with going home at time of dc. Pt states no further concerns/needs. CM to follow. Advised pt to ask CM if any further questions/concerns/needs arise, voices understanding. Pt Goal: Home Plan: Home, follow for increased oxygen rx Bryson VARGAS CM
[2025-03-16] MEDS: Acetaminophen/Butalbital/Caffe 1 Tablet PO (12:54)
[2025-03-16] MEDS: 0.9% Saline Lock 10 ML Syringe IV (14:06)
[2025-03-16] MEDS: Insulin Glargine-YFGN 100 UNIT/ML Pen 35 UNIT SC (16:59)
[2025-03-16 17:33] VITALS: BP 126/103; PULSE 69; RESP 18; TEMP 37.4; O2SAT 91
[2025-03-16 20:55] VITALS: BP 141/74; PULSE 70; RESP 18; TEMP 37; O2SAT 92
[2025-03-17] MEDS: Acetaminophen/Butalbital/Caffe 1 Tablet PO (01:10)
[2025-03-17 02:00] VITALS: BP 136/68; PULSE 68; RESP 17; TEMP 36.9; O2SAT 92
[2025-03-17 06:00] VITALS: BMI 45.3
[2025-03-17 06:23] LABS: Hematocrit 39.7 % (37-47); Hemoglobin 13.2 g/dL (12.0-15.0); Immature Granulocytes Count 0.030 X10^3/uL (0.0-0.0); Mean Corp Hgb Conc 33.2 g/dL (32-36); Mean Corpuscular Volume 87.3 fL (81-99); Mean Platelet Vol. 9.2 fl (6.2-12.0); NRBC Flagged by Analyzer 0 % (0-5); Platelet Count 221 K/mm3 (150-450); RBC Distribution Width CV 13.6 % (11.6-14.6); RBC Distribution Width SD 42.8 fl (35.1-43.9); Red Blood Count 4.55 M/mm3 (4.2-5.4); White Blood Count 6.3 K/mm3 (4.4-11.0)
[2025-03-17 07:08] LABS: Anion Gap 15 (5-15); BUN 9 mg/dL (4-19); BUN/Creat Ratio 13.7 RATIO (10-20); Calcium,Total 8.8 mg/dL (7.6-11.0); Carbon Dioxide 21.6 mmol/L (21.0-32.0); Chloride 99 mmol/L (98-108); Estimated Creatinine Clearance 88.47 ml/min (50-250); Glucose 260 mg/dL (70-99); Potassium 3.9 mmol/L (3.3-5.1)
[2025-03-17 07:50] VITALS: O2SAT 98
[2025-03-17 08:00] VITALS: BP 149/67; PULSE 84; RESP 18; TEMP 36.9; O2SAT 93
[2025-03-17] MEDS: Lactobacillis Acidophilus 1 CAP PO ×4 (09:07→21:08)
[2025-03-17] MEDS: Cholecalciferol (VIT D3) 25 MCG TABLET (1,000 UNITS) PO (09:09)
--- NOTE | 2025-03-17 10:08 | PN.HOSP_ITS ---
Reason for Visit Chief Complaint: Confusion. Objective Data Objective Data Vital Signs: Vital Signs Temp Pulse Resp BP Pulse Ox O2 Del Method 98.4 F 84 18 149/67 H 93 Room Air 03/17/25 08:00 03/17/25 08:00 03/17/25 08:00 03/17/25 08:00 03/17/25 08:00 03/17/25 08:00 Oxygen Delivery Method Room Air Weight: 264 lb 1.82 oz Body Mass Index (BMI) 45.3 Intake & Output: Intake and Output for Last 24 Hours 03/15/25 03/16/25 03/17/25 23:59 23:59 23:59 Intake Total 1000 / 1000 1750.00 / 1750.00 400 / 400 Balance 1000 / 1000 1750.00 / 1750.00 400 / 400 Lab / Micro Data 03/17/25 05:53 03/17/25 05:53 Labs: Laboratory Results - last 24 hr 03/16/25 09:05: POC Glucose 263 H 03/16/25 12:07: POC Glucose 294 H 03/16/25 16:57: POC Glucose 309 H 03/17/25 05:53: WBC 6.3, RBC 4.55, Hgb 13.2, Hct 39.7, MCV 87.3, MCH 29.0, MCHC 33.2, RDW Std Deviation 42.8, RDW Coeff of Mouna 13.6, Plt Count 221, MPV 9.2, Immature Gran % (Auto) 0.500, Neut % (Auto) 51.6, Lymph % (Auto) 38.6, [place] % (Auto) 5.9, Eos % (Auto) 2.6, Baso % (Auto) 0.8, Absolute Neuts (auto) 3.2, Absolute Lymphs (auto) 2.41, Nucleated RBC % 0, Sodium 135, Potassium 3.9, Chloride 99, Carbon Dioxide 21.6, Anion Gap 15, BUN 9, Creatinine 0.69 L, Estim Creat Clear Calc 88.47, Est GFR (MDRD) Non-Af 96, BUN/Creatinine Ratio 13.7, Glucose 260 H, Calcium 8.8, Phosphorus 3.2 03/17/25 08:34: POC Glucose 275 H Micro: Microbiology 03/15/25 19:44 Urine, Clean Catch Urine Culture - Preliminary Gram Positive Cocci Rhythm Strip Rhythm Strip: Sinus Rhythm Rate: 58 Ectopy: None Physical Exam Narrative Seen and examined. Patient stated she could not sleep last night. She was all awake. Headache is much improved. She was asking for Ativan but advised dependence potential along with daydreaming hallucinations and seizure Patient is states she sleeps about 8 to 10 hours at night and 2 hours during afternoon. Admits that she is having burning micturition for 2 to 3 weeks along with increased frequency and urgency. Patient has increased thirst Physical exam: General: Alert, Oriented x3, Cooperative HEENT: Atraumatic, PERRLA, EOMI, Normocephalic. Oral: No Gingival or Mucosal Lesions/ Ulcerations Neck: Supple, No JVD, Negative Carotid Bruits Chest wall/Lungs: Air entry diminished in bilateral lung bases. No crepitation/rhonchi Cardiovascular: Regular rate and rhythm, Normal S1,S2, No M/G/R Abdomen: Bowel Sounds Present, Soft, Non Tender, Non-Distended : No dysuria. No renal angle tenderness. No suprapubic tenderness. Extremities: No edema, Capillary Refill Less than 3 Seconds Skin: No rashes, No breakdown Musculoskeletal: No Tenderness to Palpation of Joints or Extremities Neurological: Cranial nerves II-XII grossly intact, DTR 2+/4. No acute focal neurological deficit. Psych/Mental Status: Flat affect. Assessment & Plan Assessment/Plan (1) Acute cystitis without hematuria: (2) Polypharmacy: (3) Toxic metabolic encephalopathy: (4) Morbid obesity with BMI of 40.0-44.9, adult: (5) Sleep apnea: QUALIFIERS: Sleep apnea type: unspecified type Qualified Code(s): G47.30 - Sleep apnea, unspecified (6) CPAP (continuous positive airway pressure) dependence: (7) Chronic osteoarthritis: (8) Chronic pain: QUALIFIERS: Chronic pain type: chronic pain syndrome Qualified Code(s): G89.4 - Chronic pain syndrome PLAN: Plan 64-year-old female brought to ED for confusion, fatigue, visual and auditory hallucinations, increased somnolence sleeping 20 hours a day wakes only for medication intake with increased thirst and urination. History of DM. 1. Lower intact symptoms of increased frequency urgency and burning micturition suggestive of acute cystitis without hematuria - Admit to PCU. We will treat with IV Azactam given patient's listed allergy to cephalexin and drug intolerance with quinolones potentially interacting with her other antidepressant medications. UA positive of pyuria, LE but nitrite negative. Prelim urine culture shows gram-positive cocci 11,000-25,000 colonies. Patient is not allergic to aztreonam but do blood test with that therefore therefore she is not allergic. 03/17: Follow urine culture. 2. Toxic/Metabolic Encephalopathy in the setting of Polypharmacy complicating #1 -medication reconciliation done. Hold Lexapro. Trazodone decreased to 50 mg daily at bedtime. Serum folate normal. 03/17: Will consult neurology to address the medications. Lexapro resumed as she was feeling very depressed. Trazodone discontinued started on Risperdal 0.5 mg twice daily. Patient on lorazepam 1 mg 3 times daily for mood, will taper down to 0.5 mg 3 times daily. 3. Morbid (class III) obesity; with BMI of 44.5 this admission on semaglutide plus SEDA; on BiPAP adding to the burden disease outlined in #1 & #2 - Weight loss will be recommended. Check TSH. This complicates her case and may hamper recovery. 4. OA; with chronic debility and chronic pain syndrome on prn oxycodone- acetaminophen BID - PT/OT and Case Management to consult and treat on rounds in a.m. in case patient would benefit from subacute rehabilitation of help appreciated in advance. 5. Essential hypertension; on lisinopril, atenolol and prn clonidine - Continue home regimen plus give as needed IV hydralazine for systolic blood pressure greater than 160 with 6. Hyperlipidemia; on simvastatin -triglyceride very high 793. LDL 70 normal. VLDL high, HDL low. On atorvastatin 10 mg daily discontinued per started on fenofibrate 48 mg daily. 7. Hypothyroidism; on levothyroxine - Maintain levothyroxine. TSH normal 1.54. 8. Former tobacco abuse; (quit ~1993) - Noted. 9. DM-2; of unknown control on insulin glargine 52U sq q. PM and insulin lispro 40U sq TID AC - Cut long-acting insulin glargine dose by approximately 30%. Continue premeal insulin lispro as previous. Check hemoglobin A1c to objectively evaluate quality of diabetic control. A1c 11.7 g%. 03/17: Blood sugars are very high therefore Humalog and Lantus insulin dose increased 10. Diabetic neuropathy; on gabapentin TID - Resume gabapentin as previous. Migraine headaches; on prn sumatriptan - Give sumatriptan as needed if migraine headache should recur. Complain of mild headache. Started on Fioricet 13. GERD; on omeprazole - Maintain PPI. 14. Depression with anxiety; on escitalopram, trazodone, lorazepam prn TID plus hydroxyzine q. HS - Hold lorazepam and hydroxyzine but continue escitalopram and trazodone as previous. 15. History of fibromyalgia; on MTX - Noted. 16. Muscle spasms; on tizanidine TID - Hold this agent until further notice. 17. DVT prophylaxis - Enoxaparin 40 mg subcu twice daily plus SCDs. Microbiology Past 72 Hours 03/15/25 19:44 Urine, Clean Catch Urine Culture - Preliminary Gram Positive Cocci Laboratory Results 03/15/25 17:29: POC Glucose 250 H 03/15/25 18:11: WBC 9.1, RBC 4.49, Hgb 13.0, Hct 39.5, MCV 88.0, MCH 29.0, MCHC 32.9, RDW Std Deviation 43.7, RDW Coeff of Mouna 13.7, Plt Count 234, MPV 9.5, Immature Gran % (Auto) 0.600, Neut % (Auto) 59.2, Lymph % (Auto) 30.4, [place] % (Auto) 6.4, Eos % (Auto) 2.8, Baso % (Auto) 0.6, Absolute Neuts (auto) 5.4, Absolute Lymphs (auto) 2.75, Nucleated RBC % 0, Sodium 137, Potassium 3.9, Chloride 101, Carbon Dioxide 23.9, Anion Gap 12, BUN 15, Creatinine 0.64 L, Estim Creat Clear Calc 87.16, Est GFR (MDRD) Non-Af 97, BUN/Creatinine Ratio 22.8 H, Glucose 239 H, Hemoglobin A1c 11.7 H, Calcium 8.6, Magnesium 1.8, Total Bilirubin 0.25, AST 60 H, ALT 41 H, Alkaline Phosphatase 117 H, Total Protein 6.6, Albumin 3.5, Globulin 3.1, Albumin/Globulin Ratio 1.1, Lipase 33, Vitamin B12 709, TSH 1.540 03/15/25 18:18: Specimen Type REJI, Sample Site Not entered, VBG pH 7.41, VBG pO2 58 H, VBG HCO3 30 H, VBG Total CO2 32, VBG O2 Sat (Calc) 89 H, VBG Base Excess 6 H, POC Mix VBG pCO2 Pt Tmp 48.2, O2 Delivery Device Not entered 03/15/25 19:25: Ammonia 30.7 03/15/25 19:44: Urine Color Yellow, Urine Clarity Sl. Cloudy, Urine pH 5.0, Ur Specific [place] 1.025, Urine Protein 30 H, Urine Glucose (UA) 250 H, Urine Ketones 5 H, Urine Occult Blood 10 H, Urine Nitrite Negative, Urine Bilirubin Negative, Urine Urobilinogen Normal, Ur Leukocyte Esterase 500 H, Urine RBC 0 SEEN, Urine WBC 10-25 SEEN, Ur Squamous Epith Cells 5-10 SEEN, Urine Bacteria 2+, Urine Mucus 0 SEEN 03/15/25 23:20: POC Glucose 204 H 03/16/25 06:20: WBC 7.0, RBC 4.51, Hgb 13.1, Hct 40.6, MCV 90.0, MCH 29.0, MCHC 32.3, RDW Std Deviation 45.9 H, RDW Coeff of Mouna 13.9, Plt Count 221, MPV 9.2, Immature Gran % (Auto) 0.600, Neut % (Auto) 53.7, Lymph % (Auto) 35.5, [place] % (Auto) 6.4, Eos % (Auto) 3.1, Baso % (Auto) 0.7, Absolute Neuts (auto) 3.8, Absolute Lymphs (auto) 2.48, Nucleated RBC % 0, Sodium 139, Potassium 4.2, Chloride 103, Carbon Dioxide 26.0, Anion Gap 10, BUN 11, Creatinine 0.68 L, Estim Creat Clear Calc 88.47, Est GFR (MDRD) Non-Af 96, BUN/Creatinine Ratio 16.5, Glucose 223 H, Calcium 8.6, Phosphorus 3.6, Total Bilirubin 0.31, AST 71 H , ALT 42 H, Alkaline Phosphatase 114 H, Total Protein 6.6, Albumin 3.5, Globulin 3.1, Albumin/Globulin Ratio 1.1, Triglycerides 793 H, Cholesterol 168, LDL Cholesterol, Calc -17, VLDL Cholesterol 159 H, HDL Cholesterol 27 L, Cholesterol/HDL Ratio 6.32, Serum Folate 28.80 Charges/Coding Visit Charges Inpatient E&M: 47300 Subs Hosp L2
--- NOTE | 2025-03-17 12:34 | NEURO.CONS ---
Assessment and Plan: Neuro Assessment/Plan FLEX SAVAGE is a 64 F with a past medical history of chronic back pain s/p pain pump placement, DM2, HTN, HLD, aniety, being evaluated by Teleneurology for confusion in setting of UTI. Symptoms consistent with encephalopathy from UTI although likely patient may have had predisposing factors to developing delirium given age and her polypharmacy. Exam largely nonfocal and imaging is liimted d/t pt's pain pump. PAtient is improving and her ddx is likely more toxic /metabolic encephalopathy than stroke related but cannot rule out given she contiues to have difficulty to gait and balance (although could be from deconditioning as well. Diagnosis: likely delirium Plan: - repeat CT Head since cannot get a MRI - continue treating UTI and continue with PT - agree with management of polypharmacy with primary team. I personally attended this patient and spent a total time of 45 minutes evaluating this patient including clinical assessment, review of chart, medical history imaging, and determining appropriate treatment and workup. HPI Consult Data Date of Consult: 03/17/25 HPI Narrative HPI Narrative: FLEX SAVAGE, is a 64 F with a past medical history of essential hypertension; on lisinopril, atenolol and prn clonidine, hyperlipidemia; on simvastatin, hypothyroidism; on levothyroxine, former tobacco abuse; (quit ~1993), morbid (class III) obesity; with BMI of 44.5 this admission on semaglutide, SEDA; on BiPAP, DM-2; of unknown control on insulin glargine 52U sq q. PM and insulin lispro 40U sq TID AC, diabetic neuropathy; on gabapentin TID, history of DVT/PE; currently not on anticoagulation, migraine headaches; on prn sumatriptan, GERD; on omeprazole, depression with anxiety; on escitalopram, trazodone, lorazepam prn TID plus hydroxyzine q. HS, history of fibromyalgia; on MTX, muscle spasms; on tizanidine TID and OA; with chronic debility and chronic pain syndrome on prn oxycodone-acetaminophen BID who presents to [facility] ER complaining of confusion. Mrs. Savage is not a reliable historian at this time so information was gathered from chart, medical staff and computer. According to the records her acute symptoms began ~2 days prior to admission with increasing somnolence and confusion. Her family informed the ER physician that she gets her medications prepackaged and that once she takes her AM she sleeps throughout the entire day and then does not take the medications due in the afternoon with an escalating pattern of hypersomnolence and confusion over the past few weeks. In the ER she was noted to have a UA positive for Acute Cystitis; without hematuria complicated by clinical evidence of Toxic/Metabolic Encephalopathy in the setting of Polypharmacy and she was then admitted to the PCU for ongoing care for a stay that is expected to extend beyond 2 midnights. Admitted 03/15. 2. Toxic/Metabolic Encephalopathy in the setting of Polypharmacy complicating #1 -medication reconciliation done. Hold Lexapro. Trazodone decreased to 50 mg daily at bedtime. Serum folate normal. 03/17: Will consult neurology to address the medications. Lexapro resumed as she was feeling very depressed. Trazodone discontinued started on Risperdal 0.5 mg twice daily. Patient on lorazepam 1 mg 3 times daily for mood, will taper down to 0.5 mg 3 times daily. Neurologic History Patient is feeling better today and nurse states she is doing much better compared to yesterday. She notes her back hurts today. She does not remember a lot of what happened. Never had a UTI before. She states that she remembers she was talking out her head and then she was brought to the hospital. She is on ativan for anxiety and has been on it for years. Patient did not sleep last night and was taking Ativan at night for sleep. She is not sure how long she has been on lexapro, maybe a year. Currently not quite back to baseline - patient still notes that she cannot walk. She is still a little foggy and her balance feels off. She feels like her equilibrium is off. She currently has an intrathecal pain pump - has had it since 2007. The pain pump was last looked at 3-4 weeks ago. Her pain in her back is worse than usual. Prior to coming to the hospital pain was well controlled. She was having pain with urinating prior to coming to the hospital. Last bowel movement was Tuesday. Endorses blurred vision, does not improve with covering one eye, no dysarthria, no weakness that is focal and new, no numbness worse on one side than another (has baseline neuropathy in both feet that is normal right now). Would walk with a cane occasionally at home. Had just finished PT a week ago. Endorses a headache currently on the sides of her head, throbbing, has had the MCKEON now for an hour. Does no remember any falls. Neurologic History -? General: Laying comfortably in bed; in no acute distress. -? HENT: Normal oropharynx and mucosa. Normal external appearance of ears and nose. Exophthalmos. -? Neck: Supple, no pain or tenderness -? CV:? No peripheral edema. -? Pulmonary:? Normal respiratory effort. -? Ext: No cyanosis, edema, or deformity -? Skin: No rash. Normal palpation of skin.? -? Musculoskeletal: full range of motion; no joint tenderness. Normal digits and nails by inspection. No clubbing. -? NEURO: -? Mental Status: The patient was alert and oriented to time, place, and person. Normal recent/remote memory, concentration, and general fund of knowledge. -? Language: speech is clear.? Naming, repetition, fluency, and comprehension intact. -? Cranial Nerves: PERRL 3 mm/brisk. EOMI, visual morocho full, no facial asymmetry, facial sensation intact, hearing intact, tongue midline, no evidence of atrophy or fibrillations. -? Motor: normal bulk, tone, and strength throughout. No pronator drift or satelliting. Upper and lower extremities equal bilaterally. -? Detailed strength exam as performed by the nurse/SEKOU and witnessed by the physician: R L SA 5 5 EE EF 5 5 WE WF Skip [employer] Blasting 5 5 HF 5 5 KE KF 4 5 DF PF -? Tone: is normal and bulk is normal -? Sensation- Intact to light touch bilaterally -? Coordination: No dysmetria on [id number], finger follow finger or [id number]. -? Gait- tried walking without walker and was too unsteady so not must walk with walker. difficulty standing without a walker. [facility], COUNTS INCLUDE 234 BEDS AT THE [facility] Medical History (Updated 03/16/25 @ 01:[address] Morgan Juárez, DO) Diabetes mellitus with hyperglycemia HTN (hypertension) Uncontrolled diabetes mellitus Diabetic polyneuropathy Essential (primary) hypertension Hyperlipidemia Insomnia 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 Hallux rigidus, left foot MRSA infection Uses wheelchair Walker as ambulation aid High cholesterol CPAP (continuous positive airway pressure) dependence Sleep apnea Hypothyroidism Anxiety disorder, unspecified Chronic pain Depressive 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 Obesity hypoventilation syndrome Obesity Normal stress echocardiogram Wears glasses PTSD (post-traumatic stress disorder) Depression Anxiety Thyroid disease Insulin dependent diabetes mellitus Ambulates with cane Fibromyalgia Arthritis DVT (deep venous thrombosis) High cholesterol Migraine headache Back pain Gait instability Syncope Dietary restriction History of diverticulitis Gastric reflux Former smoker ASV (adaptive servo-ventilation) use counseling On home oxygen therapy Shortness of breath on exertion Leg cramps History of pain when walking History of edema History of stress test Hypertension Implantable intrathecal infusion pump present Mixed connective tissue disease Osteoarthritis History of DVT (deep vein thrombosis) History of pulmonary embolus (PE) Atrophic vaginitis Bone spur Osteoarthritis calcium calcifications Mixed connective tissue disease History of neuropathy History of spinal stenosis History of diabetes mellitus Acromioclavicular arthrosis Strain of shoulder, left Neck pain Limb weakness Difficulty balancing Fatigue Shoulder pain Gastroesophageal reflux disease DJD (degenerative joint disease) of lumbar spine Home Medications ?Medication ?Instructions ?Recorded ?Last Taken ?Type omeprazole 40 mg capsule,delayed 40 mg PO DAILY GERD 08/30/13 02/20/24 History release trazodone 100 mg tablet 100 mg PO QHS mood 08/30/13 02/19/24 History levothyroxine 50 mcg tablet 50 mcg PO DAILY thyroid 10/21/17 09/15/22 History simvastatin 20 mg tablet 20 mg PO DAILY cholesterol 10/21/17 02/20/24 History atenolol 25 mg tablet 25 mg PO DAILY heart 05/18/19 02/18/24 History methotrexate sodium 2.5 mg tablet 20 mg PO FR fibromyalgia 08/19/20 09/10/22 History leucovorin calcium 10 mg tablet 5 mg PO FR supplement 12/08/20 09/10/22 History cholecalciferol (vitamin D3) 25 25 mcg PO DAILY supplement 09/13/22 09/15/22 History mcg (1,000 unit) capsule lisinopril 20 mg tablet 20 mg PO DAILY blood pressure #30 09/17/22 Unknown Rx tabs hydroxyzine pamoate 50 mg capsule 50 mg PO QHS mood #30 caps 09/07/23 Unknown Rx clonidine HCl 0.1 mg tablet 0.1 mg PO Q8H PRN PRN 03/03/24 02/20/24 13:30 Rx Anxiety/tremors #1 TAB folic acid 1 mg tablet 1 mg PO BREAKFAST #30 tabs 03/03/24 Unknown Rx insulin lispro 100 unit/mL See Rx Instructions .Route 03/03/24 Unknown Rx subcutaneous pen (Humalog KwikPen .COMPLEX diabetes #15 mL (U-100) Insulin) lorazepam 1 mg tablet 1 mg PO TID mood 05/07/24 Unknown History oxycodone-acetaminophen 5 mg-325 1 tab PO BID 07/27/24 Unknown History mg tablet tizanidine 4 mg tablet 4 mg PO TID 07/27/24 Unknown History lancets-blood glucose test #1 ea 07/28/24 Unknown Rx strips-pen needles with gauze kit gabapentin 100 mg capsule 100 mg PO TID nerve pain 90 days 09/03/24 Unknown Rx #270 caps blood-glucose sensor (FreeStyle #6 ea 09/21/24 Unknown Rx Prema 3 Plus Sensor device) sumatriptan succinate 25 mg tablet See Rx Instructions PO .COMPLEX 10/12/24 Unknown Rx (Imitrex) #10 tabs semaglutide 1 mg/dose (4 mg/3 mL) 1 mg (0.75 mL) subcut QWEEK #3 mL 10/30/24 Unknown Rx subcutaneous pen injector (Ozempic) insulin glargine-yfgn 100 unit/mL 52 unit (0.52 mL) subcut QHS 11/12/24 Unknown Rx (3 mL) subcutaneous pen diabetes #5 pens escitalopram oxalate 20 mg tablet 20 mg PO DAILY for depressive 03/05/25 Unknown Rx disorder #90 TABLETS insulin lispro 100 unit/mL 38 unit subcut TIDWMEAL 03/15/25 Unknown History subcutaneous pen (Humalog KwikPen (U-100) Insulin) Allergy/AdvReac Type Severity Reaction Status Date / Time niacin Allergy Itching Verified 03/15/25 17:14 venlafaxine AdvReac Severe Vomiting Verified 03/15/25 17:14 metformin AdvReac Intermediate Diarrhea Verified 03/15/25 17:14 Family History Sister Breast cancer Diabetes Kidney disease Other Arthritis Heart disease Surgical History History of bunionectomy of both great toes History of lumbar fusion History of total right knee replacement Hx of surgical procedure Hx of arthroscopic knee surgery History of carpal tunnel release Hx of hysterectomy History of back surgery Hx of total knee replacement hx of plantar fasciotomy Social History household members: spouse Smoking Status: Former smoker alcohol intake: never substance use type: does not use caffeine: No what type of physical activity do you participate in: none seatbelt use: always do you feel safe at home: Yes additional social history: [employer] at [employer] Patient is disabled Vital Signs Vital Signs Vital Signs: 03/16/25 17:33 03/16/25 20:55 03/17/25 02:00 Temperature 99.4 F H 98.6 F 98.4 F Temperature Source Oral Oral Oral Pulse Rate 69 70 68 Respiratory Rate 18 18 17 Blood Pressure 126/103 H 141/74 H 136/68 H Blood Pressure Mean 110 96 90 Pulse Ox 91 92 92 Oxygen Delivery Method Room Air Room Air Room Air 03/17/25 07:50 03/17/25 08:00 Temperature 98.4 F Temperature Source Oral Pulse Rate 84 Respiratory Rate 18 Blood Pressure 149/67 H Blood Pressure Mean 94 Pulse Ox 98 93 Oxygen Delivery Method Room Air Room Air Weight Weight: 119.8 kg Body Mass Index (BMI) 45.3 EEG Results Procedure Details EEG Procedure Details: FLEX SAVAGE is a 64 year old F with a past medical history of , who presents for evaluation of Electroencephalogram on DATE at TIME Lab / Micro Data 03/17/25 05:53 03/17/25 05:53 Labs: Laboratory Results - last 24 hr 03/16/25 09:05: POC Glucose 263 H 03/16/25 12:07: POC Glucose 294 H 03/16/25 16:57: POC Glucose 309 H 03/17/25 05:53: WBC 6.3, RBC 4.55, Hgb 13.2, Hct 39.7, MCV 87.3, MCH 29.0, MCHC 33.2, RDW Std Deviation 42.8, RDW Coeff of Mouna 13.6, Plt Count 221, MPV 9.2, Immature Gran % (Auto) 0.500, Neut % (Auto) 51.6, Lymph % (Auto) 38.6, Mcleod % (Auto) 5.9, Eos % (Auto) 2.6, Baso % (Auto) 0.8, Absolute Neuts (auto) 3.2, Absolute Lymphs (auto) 2.41, Nucleated RBC % 0, Sodium 135, Potassium 3.9, Chloride 99, Carbon Dioxide 21.6, Anion Gap 15, BUN 9, Creatinine 0.69 L, Estim Creat Clear Calc 88.47, Est GFR (MDRD) Non-Af 96, BUN/Creatinine Ratio 13.7, Glucose 260 H, Calcium 8.8, Phosphorus 3.2 03/17/25 08:34: POC Glucose 275 H 03/17/25 11:20: POC Glucose 283 H Micro: Microbiology 03/15/25 19:44 Urine, Clean Catch Urine Culture - Preliminary Gram Positive Cocci Rhythm Strip Rhythm Strip: Sinus Rhythm Rate: 58 Ectopy: None Active Medications Active Medications Active Medications: Current Medications Generic Name Dose Route Start Last Admin Trade Name Freq PRN Reason Stop Dose Admin Acetaminophen 650 mg 03/15/25 22:11 03/16/25 08:56 Acetaminophen 325 Mg Tablet PO 650 mg Q6H PRN PRN Administration Pain 1-10 Or Fever>100.7 Acetaminophen/Butalbital/Caffeine 1 tablet 03/16/25 10:35 03/17/25 01:10 Acetaminophen/Butalbital/Caffe 1 Tablet PO 1 tablet Q4H PRN PRN Administration HEADACHE Atenolol 25 mg 03/16/25 10:00 03/17/25 09:07 Atenolol 25 Mg Tablet PO 25 mg DAILY EDMOND Administration Protocol Cholecalciferol 25 mcg 03/16/25 10:00 03/17/25 09:09 Cholecalciferol (Vit D3) 25 Mcg Tablet (1,000 Units) PO 25 mcg DAILY EDMOND Administration Clonidine 0.1 mg 03/15/25 22:11 Clonidine Hcl 0.1 Mg Tablet PO Q8H PRN PRN Anxiety/tremors Protocol Enoxaparin Sodium 40 mg 03/15/25 22:11 03/17/25 09:07 Enoxaparin 40 Mg/0.4 Ml Syringe SC 40 mg BID EDMOND Administration Escitalopram Oxalate 20 mg 03/17/25 10:08 Escitalopram Oxalate 20 Mg Tablet PO DAILY EDMOND Fenofibrate 48 mg 03/17/25 10:00 03/17/25 09:08 Fenofibrate 48 Mg Tablet PO 48 mg DAILY EDMOND Administration Folic Acid 1 mg 03/16/25 08:00 03/17/25 09:06 Folic Acid 1 Mg Tablet PO 1 mg BREAKFAST EDMOND Administration Gabapentin 100 mg 03/15/25 22:11 03/17/25 06:11 Gabapentin 100 Mg Capsule PO 100 mg TID EDMOND Administration Glucagon 1 mg 03/15/25 22:11 Glucagon 1 Mg/Ml Syringe IM X1 PRN HYPOGLYCEMIA Protocol Dextrose 250 mls @ 0 mls/hr 03/15/25 22:11 Dextrose 10%-Water IV .Q0M PRN HYPOGLYCEMIA Protocol As Directed Ceftriaxone Sodium 1 gm in 50 mls @ 100 mls/hr 03/16/25 10:40 03/17/25 10:09 Rocephin IV Infused Q24 EDMOND Infusion Insulin Glargine 25 unit 03/17/25 10:08 Insulin Glargine-Yfgn 100 Unit/Ml Pen SC BID EDMOND Insulin Human Lispro 18 unit 03/17/25 11:00 03/17/25 11:55 Insulin Lispro 100 Unit/Ml Insuln.Pen SC 18 u TIDAC EDMOND Administration Levothyroxine Sodium 50 mcg 03/16/25 06:00 03/17/25 06:11 Levothyroxine 50 Mcg Tablet PO 50 mcg DAILY@0600 EDMOND Administration Lisinopril 30 mg 03/17/25 10:15 Lisinopril 10 Mg Tablet PO DAILY [facility] Protocol Lorazepam 0.5 mg 03/15/25 22:57 03/15/25 23:54 Lorazepam 0.5 Mg Tablet PO 0.5 mg QHS PRN PRN Administration ANXIETY/RESTLESSNESS/SLEEP Lorazepam 0.5 mg 03/17/25 14:00 Lorazepam 0.5 Mg Tablet PO TID EDMOND Methotrexate 20 mg 03/22/25 10:00 Methotrexate 2.5 Mg Tablet PO Fr@1000 EDMOND Pantoprazole Sodium 40 mg 03/16/25 10:00 03/17/25 09:07 Pantoprazole Sodium 40 Mg Tablet PO 40 mg DAILY EDMOND Administration Prochlorperazine Edisylate 5 mg 03/15/25 22:11 03/16/25 14:06 Prochlorperazine 10 Mg/2 Ml Vial IV 5 mg Q4H PRN PRN Administration Breakthrough Nausea/Vomiting Risperidone 0.5 mg 03/17/25 10:10 03/17/25 11:05 Risperidone 0.5 Mg Tablet PO 0.5 mg BID EDMOND Administration Protocol Rizatriptan Benzoate 5 mg 03/15/25 22:11 Rizatriptan Benzoate 5 Mg Tablet PO DAILY PRN PRN MIGRAINE SYMPTOMS Sodium Chloride 10 - 40 ml 03/15/25 22:39 03/16/25 14:06 0.9% Saline Lock 10 Ml Syringe IV 10 ml UD PRN Administration SALINE FLUSH
[2025-03-17 17:18] VITALS: BP 159/88; PULSE 59; RESP 18; TEMP 37.1; O2SAT 92
[2025-03-17 20:00] VITALS: BP 134/76; PULSE 76; RESP 18; TEMP 36.7; O2SAT 93
[2025-03-17 21:00] VITALS: BP 136/78; PULSE 74; RESP 16; TEMP 36.7; O2SAT 95
[2025-03-17] MEDS: Insulin Glargine-YFGN 100 UNIT/ML Pen 25 UNIT SC (21:09)
[2025-03-18 02:00] VITALS: BP 175/79; PULSE 90; RESP 18; TEMP 36.7; O2SAT 93
[2025-03-18 03:00] VITALS: BP 175/79; PULSE 70; RESP 16; TEMP 36.6; O2SAT 95
[2025-03-18 05:52] LABS: Hematocrit 41.1 % (37-47); Hemoglobin 13.7 g/dL (12.0-15.0); Immature Granulocytes Count 0.040 X10^3/uL (0.0-0.0); Mean Corp Hgb Conc 33.3 g/dL (32-36); Mean Corpuscular Volume 88.0 fL (81-99); Mean Platelet Vol. 11.1 fl (6.2-12.0); NRBC Flagged by Analyzer 0 % (0-5); POSITIVE COUNT YES; Platelet Count 149 K/mm3 (150-450); RBC Distribution Width CV 13.7 % (11.6-14.6); RBC Distribution Width SD 43.6 fl (35.1-43.9); Red Blood Count 4.67 M/mm3 (4.2-5.4); White Blood Count 6.2 K/mm3 (4.4-11.0)
[2025-03-18 06:00] VITALS: BMI 45.9
[2025-03-18 06:25] LABS: Differential Indicated SCAN CRITERIA MET
[2025-03-18 06:27] LABS: Differential Comment SCANNED; Red Cell Morphology NORM C+C NORMAL (NORM C&C)
[2025-03-18 07:50] LABS: Anion Gap 13 (5-15); BUN 8 mg/dL (4-19); BUN/Creat Ratio 12.7 RATIO (10-20); Calcium,Total 9.1 mg/dL (7.6-11.0); Carbon Dioxide 25.9 mmol/L (21.0-32.0); Chloride 98 mmol/L (98-108); Estimated Creatinine Clearance 88.86 ml/min (50-250); Glucose 287 mg/dL (70-99); Potassium 3.7 mmol/L (3.3-5.1)
[2025-03-18 08:00] VITALS: BP 165/70; PULSE 70; RESP 16; TEMP 36.6; O2SAT 95
--- NOTE | 2025-03-18 08:49 | PCM.DC ---
Discharge Instructions DC O2, CPAP, BIPAP needs Home O2 Discharge instructions: No Follow Up Care Test Results: Test results from this visit will be discussed in further detail at your follow-up appointment, if applicable. Discharge Plan Admission Admit Date/Time: 03/15/25 21:25 Attending Provider: Parviz Gupta Primary Care Provider: Rica Padgett Consulting Providers: Morgan Juárez; Tarik Huizar; Leobardo Caballero; Licha Ambrose; Doreen Langford; Sunitha Mcintyre; Anup Choi; Avelina Santoro; Hector Rutledge; Mik Carlin; Akhil Hayes; Rosa M Orta; Payam West; Yamini Marquez; Bashir Jeter; Charles Christianson; Bud Dominguez; Abi Danielle; Allen George; Lauren Montez; Ana Orellana Discharge Orders/Prescriptions Prescriptions: New fenofibrate nanocrystallized 48 mg Tablet 48 mg PO DAILY 30 Days Qty: 30 0RF lorazepam 0.5 mg Tablet 0.5 mg PO TID Qty: 0 0RF Rx Instructions: Been down 0.5 mg 3 times daily for 3 days and then 0.25 mg 3 times daily for 3 days and then 0.25 mg twice daily for 3 days and 0.2 mg once daily for 3 days and then stop under guidance of PCP Continued methotrexate sodium 2.5 mg tablet 20 mg PO FR cholecalciferol (vitamin D3) 25 mcg (1,000 unit) capsule 25 mcg PO DAILY gabapentin 100 mg capsule 100 mg PO TID 90 Days Qty: 270 2RF omeprazole 40 MG capsule 40 mg PO DAILY Patient Comments: ACID REFLEX levothyroxine 50 MCG tablet 50 mcg PO DAILY atenolol 25 MG tablet 25 mg PO DAILY leucovorin calcium 10 MG tablet 5 mg PO FR folic acid 1 mg Tablet 1 mg PO BREAKFAST Qty: 30 0RF clonidine HCl 0.1 mg tablet 0.1 mg PO Q8H PRN PRN (Reason: Anxiety/tremors) Qty: 1 0RF Patient Comments: take 1 tablet by mouth three times a day if needed for anxiety or TREMOR(S) oxycodone-acetaminophen 5-325 mg tablet 1 tab PO BID (DME) lancet-gluc ennnz-eexnni-twfum Kit See Rx Instructions .Route Qty: 1 0RF Rx Instructions: As directed sumatriptan succinate [Imitrex] 25 mg tablet See Rx Instructions .ROUTE .COMPLEX Qty: 10 0RF Rx Instructions: take 1 tab at onset of headache; if no relief may repeat 1 tab after at least 2 hrs; max = 4 tabs/24 hr (DME) FreeStyle Prema 3 Plus Sensor Device See Rx Instructions .Route Qty: 6 1RF Rx Instructions: As directed Ozempic 1 mg/dose (4 mg/3 mL) pen injector 1 mg subcut QWEEK Qty: 3 1RF insulin glargine-yfgn 100 unit/mL (3 mL) insulin pen 52 unit subcut QHS Qty: 5 1RF escitalopram oxalate 20 mg tablet 20 mg PO DAILY Qty: 90 1RF Changed tizanidine 4 mg tablet 2 mg PO TID PRN (Reason: Muscle spasm) 3 Days Qty: 0 0RF hydroxyzine pamoate 50 mg capsule 25 mg PO QHS Qty: 30 2RF trazodone 100 MG tablet 50 mg PO QHS 30 Days Qty: 0 0RF Patient Comments: DEPRESSION lorazepam 1 mg tablet 0.5 mg PO TID 7 Days Qty: 0 0RF insulin lispro [Humalog KwikPen Insulin] 100 unit/mL insulin pen 25 unit subcut TIDWMEAL Qty: 15 3RF Rx Instructions: Hold if glucose less than 130 mg/dl Discontinued simvastatin 20 MG tablet 20 mg PO DAILY lisinopril 20 mg Tablet 20 mg PO DAILY Qty: 30 0RF insulin lispro [Humalog KwikPen Insulin] 100 unit/mL Insulin Pen See Rx Instructions .ROUTE .COMPLEX Qty: 15 0RF Rx Instructions: 10 with breakfast 16 with lunch 14 with supper Referrals / Follow Up: Rica Padgett DO [Primary Care Provider] - Within 1 Week Jered Lee DO [Med Staff - Piping Supervisor] - Within 2 Weeks (For history of anxiety and depression) Disposition Disposition (needs filled in before D/C Order can be placed): Home, Self Care
--- NOTE | 2025-03-18 08:50 | CT_ITS ---
EXAM: CT Head Without Intravenous Contrast CLINICAL INDICATION: HEADACHE TECHNIQUE: Axial computed tomography images of the head/brain without intravenous contrast. This CT exam was performed using one or more of the following dose reduction techniques: automated exposure control, adjustment of the mA and/or kV according to patient size, and/or use of iterative reconstruction technique. COMPARISON: CT Head dated 11/20/24 FINDINGS: BRAIN AND EXTRA-AXIAL SPACES: No acute intracranial hemorrhage, midline shift or mass effect. If symptoms persist, further evaluation with MRI is recommended. No significant white matter disease. BONES/JOINTS: Unremarkable. No acute fracture. SOFT TISSUES: Unremarkable. SINUSES: Unremarkable as visualized. No acute sinusitis. MASTOID AIR CELLS: Unremarkable as visualized. No mastoid effusion. CT/Brain/Head without Contrast IMPRESSION: No acute intracranial hemorrhage, midline shift or mass effect. If symptoms per sist, further evaluation with MRI is recommended. Reading [facility]
[2025-03-18 09:00] VITALS: BP 165/70; PULSE 70; RESP 16; TEMP 36.6; O2SAT 95
[2025-03-18] MEDS: Lactobacillis Acidophilus 1 CAP PO ×3 (09:49→16:39)
[2025-03-18] MEDS: Cholecalciferol (VIT D3) 25 MCG TABLET (1,000 UNITS) PO (09:49)
[2025-03-18] MEDS: 0.9% Saline Lock 10 ML Syringe IV (10:02)
[2025-03-18] MEDS: Acetaminophen/Butalbital/Caffe 1 Tablet PO (10:02)
[2025-03-18] MEDS: Insulin Glargine-YFGN 100 UNIT/ML Pen 25 UNIT SC (10:03)
[2025-03-18 15:06] VITALS: BP 114/78; PULSE 70; RESP 14; TEMP 37.2; O2SAT 95
--- NOTE | 2025-03-18 15:06 | DS.PCM_ITS ---
Providers Date of Admission: 03/15/25 Date of Discharge: 03/18/25 Primary Care Physician: Dr. Rica Padgett, Consultations 03/17/25 10:13 Consult: Tele-Neurology Routine Consulting Provider: [facility] Reason for Consult: ams/polypharmacy, dependance on ativan EMERGENT Consult: No MD Notified: Yes Date Notified: 03/17/25 Time Notified: 10:33 Method of Notification: Answering Service Nursing Unit Staff Notify [facility] of Tele-Neurology Consult: Yes Reason For Visit: UTI AND TOXIC/METABOLIC ENCEPHALOPATHY Diagnosis Discharge Diagnosis (1) Acute cystitis without hematuria: Status: Acute Code(s): N30.00 - Acute cystitis without hematuria (2) Polypharmacy: Status: Acute Code(s): Z79.899 - Other mcc (current) drug therapy (3) Toxic metabolic encephalopathy: Status: Acute Code(s): G92.8 - Other toxic encephalopathy (4) Morbid obesity with BMI of 40.0-44.9, adult: Status: Acute Code(s): E66.01 - Morbid (severe) obesity due to excess calories; Z68.41 - Body mass index [BMI] 40.0-44.9, adult (5) Sleep apnea: Status: Acute Code(s): G47.30 - Sleep apnea, unspecified Qualifiers: Sleep apnea type: unspecified type Qualified Code(s): G47.30 - Sleep apnea, unspecified (6) CPAP (continuous positive airway pressure) dependence: Status: Acute Code(s): Z99.89 - Dependence on other enabling machines and devices (7) Chronic osteoarthritis: Status: Chronic Code(s): M19.90 - Unspecified osteoarthritis, unspecified site (8) Chronic pain: Status: Chronic Code(s): G89.29 - Other chronic pain Qualifiers: Chronic pain type: chronic pain syndrome Qualified Code(s): G89.4 - Chronic pain syndrome Plan 64-year-old female brought to ED for confusion, fatigue, visual and auditory hallucinations, increased somnolence sleeping 20 hours a day wakes only for medication intake with increased thirst and urination. History of DM. 1. Lower intact symptoms of increased frequency urgency and burning micturition suggestive of acute cystitis without hematuria - Admit to PCU. We will treat with IV Azactam given patient's listed allergy to cephalexin and drug intolerance with quinolones potentially interacting with her other antidepressant medications. UA positive of pyuria, LE but nitrite negative. Prelim urine culture shows gram-positive cocci 11,000-25,000 colonies. Patient is not allergic to aztreonam but do blood test with that therefore therefore she is not allergic. 03/17: Follow urine culture. 03/18: Urine culture shows 2 organisms, staph species 1000-10,000 and GPC possible Enterococcus less than 1000 therefore most likely contamination or colonization. UTI ruled out. Anyway, patient got 3 days of IV ceftriaxone empirically. 2. Toxic/Metabolic Encephalopathy in the setting of Polypharmacy complicating #1 -medication reconciliation done. Hold Lexapro. Trazodone decreased to 50 mg daily at bedtime. Serum folate normal. 03/17: Will consult neurology to address the medications. Lexapro resumed as she was feeling very depressed. Trazodone discontinued started on Risperdal 0.5 mg twice daily. Patient on lorazepam 1 mg 3 times daily for mood, will taper down to 0.5 mg 3 times daily. 03/18: Most likely due to polypharmacy. Ativan taper as written in discharge instruction and consult with PCP. Trazodone decreased to 50 mg daily at night. Continue Lexapro. Follow-up with the psychiatrist Dr. Lee 3. Morbid (class III) obesity; with BMI of 44.5 this admission on semaglutide plus SEDA; on BiPAP adding to the burden disease outlined in #1 & #2 - Weight loss will be recommended. Check TSH. This complicates her case and may hamper recovery. 4. OA; with chronic debility and chronic pain syndrome on prn oxycodone- acetaminophen BID - PT/OT and Case Management to consult and treat on rounds in a.m. in case patient would benefit from subacute rehabilitation of help appreciated in advance. 5. Essential hypertension; on lisinopril, atenolol and prn clonidine - Continue home regimen plus give as needed IV hydralazine for systolic blood pressure greater than 160 with 6. Hyperlipidemia; on simvastatin -triglyceride very high 793. LDL 70 normal. VLDL high, HDL low. On atorvastatin 10 mg daily discontinued per started on fenofibrate 48 mg daily. 7. Hypothyroidism; on levothyroxine - Maintain levothyroxine. TSH normal 1.54. 8. Former tobacco abuse; (quit ~1993) - Noted. 9. DM-2; of unknown control on insulin glargine 52U sq q. PM and insulin lispro 40U sq TID AC - Cut long-acting insulin glargine dose by approximately 30%. Continue premeal insulin lispro as previous. Check hemoglobin A1c to objectively evaluate quality of diabetic control. A1c 11.7 g%. 03/17: Blood sugars are very high therefore Humalog and Lantus insulin dose increased 03/18: Glucose uncontrolled. On glargine 52 units. Humalog insulin dose increased. Follow with PCP. 10. Diabetic neuropathy; on gabapentin TID - Resume gabapentin as previous. Migraine headaches; on prn sumatriptan - Give sumatriptan as needed if migraine headache should recur. Complain of mild headache. Started on Fioricet 13. GERD; on omeprazole - Maintain PPI. 14. Depression with anxiety; on escitalopram, trazodone, lorazepam prn TID plus hydroxyzine q. HS - Hold lorazepam and hydroxyzine but continue escitalopram and trazodone as previous. 15. History of fibromyalgia; on MTX - Noted. 16. Muscle spasms; on tizanidine TID - Hold this agent until further notice. 17. DVT prophylaxis - Enoxaparin 40 mg subcu twice daily plus SCDs. Discharge medication reconciliation done. Discharge follow-up instructions completed. Discharge process discussed with the patient and all questions were answered to patient's satisfaction. Follow with PCP in 1 to 2 weeks Total time spent, exact 35 minutes on discharge meds reconciliation, examination, coordination of care with nurses and ancillary staff, review of imaging and blood test and discussion with the patient on follow-up instructions. 03/16/25 06:20: WBC 7.0, RBC 4.51, Hgb 13.1, Hct 40.6, MCV 90.0, MCH 29.0, MCHC 32.3, RDW Std Deviation 45.9 H, RDW Coeff of Mouna 13.9, Plt Count 221, MPV 9.2, Immature Gran % (Auto) 0.600, Neut % (Auto) 53.7, Lymph % (Auto) 35.5, [place] % (Auto) 6.4, Eos % (Auto) 3.1, Baso % (Auto) 0.7, Absolute Neuts (auto) 3.8, Absolute Lymphs (auto) 2.48, Nucleated RBC % 0, Sodium 139, Potassium 4.2, Chloride 103, Carbon Dioxide 26.0, Anion Gap 10, BUN 11, Creatinine 0.68 L, Estim Creat Clear Calc 88.47, Est GFR (MDRD) Non-Af 96, BUN/Creatinine Ratio 16.5, Glucose 223 H, Calcium 8.6, Phosphorus 3.6, Total Bilirubin 0.31, AST 71 H , ALT 42 H, Alkaline Phosphatase 114 H, Total Protein 6.6, Albumin 3.5, Globulin 3.1, Albumin/Globulin Ratio 1.1, Triglycerides 793 H, Cholesterol 168, LDL Cholesterol, Calc -17, VLDL Cholesterol 159 H, HDL Cholesterol 27 L, Cholesterol/HDL Ratio 6.32, Serum Folate 28.80 Microbiology Past 72 Hours 03/15/25 19:44 Urine, Clean Catch Urine Culture - Final Staphylococcus species GPC Poss Enterococcus sp Laboratory Results 03/17/25 17:22: POC Glucose 190 H 03/17/25 21:02: POC Glucose 256 H 03/18/25 05:37: WBC 6.2, RBC 4.67, Hgb 13.7, Hct 41.1, MCV 88.0, MCH 29.3, MCHC 33.3, RDW Std Deviation 43.6, RDW Coeff of Mouna 13.7, Plt Count 149 L, MPV 11.1, Immature Gran % (Auto) 0.600, Neut % (Auto) 56.2, Lymph % (Auto) 30.8, [place] % (Auto) 8.0, Eos % (Auto) 3.4, Baso % (Auto) 1.0, Absolute Neuts (auto) 3.5, Absolute Lymphs (auto) 1.92, Nucleated RBC % 0, Differential Comment SCANNED, Platelet Estimate ADEQUATE, Plt Morphology Comment CLUMPED, RBC Morphology NORM C+C, Sodium Cancelled, Potassium Cancelled, Chloride Cancelled, Carbon Dioxide Cancelled, Anion Gap Cancelled, BUN Cancelled, Creatinine Cancelled, Estim Creat Clear Calc Cancelled, Est GFR (MDRD) Non-Af Cancelled, BUN/Creatinine Ratio Cancelled, Glucose Cancelled, Calcium Cancelled 03/18/25 06:16: POC Glucose 285 H 03/18/25 06:39: Sodium 137, Potassium 3.7, Chloride 98, Carbon Dioxide 25.9, Anion Gap 13, BUN 8, Creatinine 0.62 L, Estim Creat Clear Calc 88.86, Est GFR (MDRD) Non-Af 98, BUN/Creatinine Ratio 12.7, Glucose 287 H, Calcium 9.1 03/18/25 11:31: POC Glucose 274 H Medications at Discharge Home Medications omeprazole 40 mg capsule,delayed release 40 mg PO DAILY GERD 08/30/13 levothyroxine 50 mcg tablet 50 mcg PO DAILY thyroid 10/21/17 atenolol 25 mg tablet 25 mg PO DAILY heart 05/18/19 methotrexate sodium 2.5 mg tablet 20 mg PO FR fibromyalgia 08/19/20 leucovorin calcium 10 mg tablet 5 mg PO FR supplement 12/08/20 cholecalciferol (vitamin D3) 25 mcg (1,000 unit) capsule 25 mcg PO DAILY supplement 09/13/22 clonidine HCl 0.1 mg tablet 0.1 mg PO Q8H PRN PRN Anxiety/tremors #1 TAB 03/03/24 folic acid 1 mg tablet 1 mg PO BREAKFAST #30 tabs 03/03/24 oxycodone-acetaminophen 5 mg-325 mg tablet 1 tab PO BID 07/27/24 lancets-blood glucose test strips-pen needles with gauze kit #1 ea 07/28/24 gabapentin 100 mg capsule 100 mg PO TID nerve pain 90 days #270 caps 09/03/24 blood-glucose sensor (FreeStyle Prema 3 Plus Sensor device) #6 ea 09/21/24 sumatriptan succinate 25 mg tablet (Imitrex) See Rx Instructions PO .COMPLEX #10 tabs 10/12/24 semaglutide 1 mg/dose (4 mg/3 mL) subcutaneous pen injector (Ozempic) 1 mg (0.75 mL) subcut QWEEK #3 mL 10/30/24 insulin glargine-yfgn 100 unit/mL (3 mL) subcutaneous pen 52 unit (0.52 mL) subcut QHS diabetes #5 pens 11/12/24 escitalopram oxalate 20 mg tablet 20 mg PO DAILY for depressive disorder #90 TABLETS 03/05/25 fenofibrate nanocrystallized 48 mg tablet 48 mg PO DAILY 30 days #30 tabs 03/18/25 hydroxyzine pamoate 50 mg capsule 25 mg (1/2 x 50 mg) PO QHS mood #30 caps 03/18/25 insulin lispro 100 unit/mL subcutaneous pen (Humalog KwikPen (U-100) Insulin) 25 unit (0.25 mL) subcut TIDWMEAL #15 mL 03/18/25 lorazepam 0.5 mg tablet 0.5 mg PO TID #0 tabs 03/18/25 lorazepam 1 mg tablet 0.5 mg (1/2 x 1 mg) PO TID mood 7 days #0 tabs 03/18/25 tizanidine 4 mg tablet 2 mg (1/2 x 4 mg) PO TID PRN Muscle spasm 3 days #0 tabs 03/18/25 trazodone 100 mg tablet 50 mg (1/2 x 100 mg) PO QHS mood 30 days #0 tabs 03/18/25 Physical Exam Narrative Seen and examined. Patient has mild heaviness of the head but not headache probably from withdrawal. She might have pain medication withdrawal. She has a pain pump subcutaneous on right lower quadrant. Follows Dr. Trejo. UTI ruled out. Physical exam: General: Alert, Oriented x3, Cooperative. BMI 45.9 kg/m?, morbid obesity HEENT: Atraumatic, PERRLA, EOMI, Normocephalic. Oral: No Gingival or Mucosal Lesions/ Ulcerations Neck: Supple, No JVD, Negative Carotid Bruits Chest wall/Lungs: Air entry diminished in bilateral lung bases. No crepitation/rhonchi Cardiovascular: Regular rate and rhythm, Normal S1,S2, No M/G/R Abdomen: Bowel Sounds Present, Soft, Non Tender, Non-Distended : No dysuria. No renal angle tenderness. No suprapubic tenderness. Extremities: No edema, Capillary Refill Less than 3 Seconds Skin: No rashes, No breakdown Musculoskeletal: No Tenderness to Palpation of Joints or Extremities Neurological: Cranial nerves II-XII grossly intact, DTR 2+/4. No acute focal neurological deficit. Psych/Mental Status: Flat affect. Weight / BMI Weight Weight: 267 lb 9.6 oz Body Mass Index (BMI) 45.9 ABG / Lab / Microbiology Data 03/18/25 05:37 03/18/25 06:39 Laboratory: Laboratory Results - last 24 hr 03/17/25 17:22: POC Glucose 190 H 03/17/25 21:02: POC Glucose 256 H 03/18/25 05:37: WBC 6.2, RBC 4.67, Hgb 13.7, Hct 41.1, MCV 88.0, MCH 29.3, MCHC 33.3, RDW Std Deviation 43.6, RDW Coeff of Mouna 13.7, Plt Count 149 L, MPV 11.1, Immature Gran % (Auto) 0.600, Neut % (Auto) 56.2, Lymph % (Auto) 30.8, [place] % (Auto) 8.0, Eos % (Auto) 3.4, Baso % (Auto) 1.0, Absolute Neuts (auto) 3.5, Absolute Lymphs (auto) 1.92, Nucleated RBC % 0, Differential Comment SCANNED, Platelet Estimate ADEQUATE, Plt Morphology Comment CLUMPED, RBC Morphology NORM C+C, Sodium Cancelled, Potassium Cancelled, Chloride Cancelled, Carbon Dioxide Cancelled, Anion Gap Cancelled, BUN Cancelled, Creatinine Cancelled, Estim Creat Clear Calc Cancelled, Est GFR (MDRD) Non-Af Cancelled, BUN/Creatinine Ratio Cancelled, Glucose Cancelled, Calcium Cancelled 03/18/25 06:16: POC Glucose 285 H 03/18/25 06:39: Sodium 137, Potassium 3.7, Chloride 98, Carbon Dioxide 25.9, Anion Gap 13, BUN 8, Creatinine 0.62 L, Estim Creat Clear Calc 88.86, Est GFR (MDRD) Non-Af 98, BUN/Creatinine Ratio 12.7, Glucose 287 H, Calcium 9.1 03/18/25 11:31: POC Glucose 274 H Microbiology: Microbiology 03/15/25 19:44 Urine, Clean Catch Urine Culture - Final Staphylococcus species GPC Poss Enterococcus sp Radiography Diagnostic Testing: Radiology Impression Brain CT 03/18/25 08:50 IMPRESSION: No acute intracranial hemorrhage, midline shift or mass effect. If symptoms persist, further evaluation with MRI is recommended. Reading Location: [facility] D/C Instructions DC O2, CPAP, BIPAP Needs Home O2 Discharge instructions: No Meaningful Use Info Meaningful Use Meaningful Use Diagnoses (Choose all that apply): None applicable Discharge Plan Admission Admit Date/Time: 03/15/25 21:25 Attending Provider: Parviz Gupta Primary Care Provider: Rica Padgett Consulting Providers: Morgan Juárez; Tarik Huizar; Leobardo Caballero; Licha Ambrose; Doreen Langford; Sunitha Mcintyre; Anup Choi; Avelina Santoro; Hector Rutledge; Mik Carlin; Akhil Hayes; Rosa M Orta; Payam West; Yamini Marquez; Bashir Jeter; Meghan,lucina Erazo; Bud Dominguez; Abi Danielle; Allen George; Lauren Montez; Ana Orellana Discharge Orders/Prescriptions Prescriptions: New fenofibrate nanocrystallized 48 mg Tablet 48 mg PO DAILY 30 Days Qty: 30 0RF lorazepam 0.5 mg Tablet 0.5 mg PO TID Qty: 0 0RF Rx Instructions: Been down 0.5 mg 3 times daily for 3 days and then 0.25 mg 3 times daily for 3 days and then 0.25 mg twice daily for 3 days and 0.2 mg once daily for 3 days and then stop under guidance of PCP Continued methotrexate sodium 2.5 mg tablet 20 mg PO FR cholecalciferol (vitamin D3) 25 mcg (1,000 unit) capsule 25 mcg PO DAILY gabapentin 100 mg capsule 100 mg PO TID 90 Days Qty: 270 2RF omeprazole 40 MG capsule 40 mg PO DAILY Patient Comments: ACID REFLEX levothyroxine 50 MCG tablet 50 mcg PO DAILY atenolol 25 MG tablet 25 mg PO DAILY leucovorin calcium 10 MG tablet 5 mg PO FR folic acid 1 mg Tablet 1 mg PO BREAKFAST Qty: 30 0RF clonidine HCl 0.1 mg tablet 0.1 mg PO Q8H PRN PRN (Reason: Anxiety/tremors) Qty: 1 0RF Patient Comments: take 1 tablet by mouth three times a day if needed for anxiety or TREMOR(S) oxycodone-acetaminophen 5-325 mg tablet 1 tab PO BID (DME) lancet-gluc nzmol-rmoxuh-xrjxs Kit See Rx Instructions .Route Qty: 1 0RF Rx Instructions: As directed sumatriptan succinate [Imitrex] 25 mg tablet See Rx Instructions .ROUTE .COMPLEX Qty: 10 0RF Rx Instructions: take 1 tab at onset of headache; if no relief may repeat 1 tab after at least 2 hrs; max = 4 tabs/24 hr (DME) FreeStyle Prema 3 Plus Sensor Device See Rx Instructions .Route Qty: 6 1RF Rx Instructions: As directed Ozempic 1 mg/dose (4 mg/3 mL) pen injector 1 mg subcut QWEEK Qty: 3 1RF insulin glargine-yfgn 100 unit/mL (3 mL) insulin pen 52 unit subcut QHS Qty: 5 1RF escitalopram oxalate 20 mg tablet 20 mg PO DAILY Qty: 90 1RF Changed tizanidine 4 mg tablet 2 mg PO TID PRN (Reason: Muscle spasm) 3 Days Qty: 0 0RF hydroxyzine pamoate 50 mg capsule 25 mg PO QHS Qty: 30 2RF trazodone 100 MG tablet 50 mg PO QHS 30 Days Qty: 0 0RF Patient Comments: DEPRESSION lorazepam 1 mg tablet 0.5 mg PO TID 7 Days Qty: 0 0RF insulin lispro [Humalog KwikPen Insulin] 100 unit/mL insulin pen 25 unit subcut TIDWMEAL Qty: 15 3RF Rx Instructions: Hold if glucose less than 130 mg/dl Discontinued simvastatin 20 MG tablet 20 mg PO DAILY lisinopril 20 mg Tablet 20 mg PO DAILY Qty: 30 0RF insulin lispro [Humalog KwikPen Insulin] 100 unit/mL Insulin Pen See Rx Instructions .ROUTE .COMPLEX Qty: 15 0RF Rx Instructions: 10 with breakfast 16 with lunch 14 with supper Referrals / Follow Up: Rica Padgett DO [Primary Care Provider] - Within 1 Week Jered Lee DO [Med Staff - Career Counselor] - Within 2 Weeks (For history of anxiety and depression) Disposition Disposition (needs filled in before D/C Order can be placed): Home, Self Care Charges/Coding Visit Charges Inpatient E&M: 34260 Disch Hosp >30min Procedures Hospitalists Procedures: 46176 Advncd Care Plan 30 Min
--- NOTE | 2025-03-18 15:45 | CASEMGMT ---
Patient has order for discharge. RN CM in to discuss needs at discharge. Patient denies needs or help at discharge. Patient states she wants to go home and see how she does. Patient states that she has had HHC in the past and will follow-up with PCP if she decides she needs HHC. Patient had no further questions or concerns.
== END 2025-03-18 18:00 | disposition home or self-care (01) | DRG 689 ==
LOC: ED 21:31 → PCU 21:35
PROVIDERS: Admitting Provider Internal Medicine; Emergency Provider Emergency Medicine; PCP Family Medicine; Visit Provider Internal Medicine
DX: N30.00 Acute cystitis without hematuria (principal); G92.8 Other toxic encephalopathy; Z68.42 Body mass index [BMI] 45.0-49.9, adult; E11.42 Type 2 diabetes mellitus with diabetic polyneuropathy; E03.9 Hypothyroidism, unspecified; I10 Essential (primary) hypertension; F32.A Depression, unspecified; E66.01 Morbid (severe) obesity due to excess calories; K21.9 Gastro-esophageal reflux disease without esophagitis; G47.33 Obstructive sleep apnea (adult) (pediatric); M19.90 Unspecified osteoarthritis, unspecified site; E78.00 Pure hypercholesterolemia, unspecified; Z79.4 Long term (current) use of insulin; F41.9 Anxiety disorder, unspecified; M79.7 Fibromyalgia; G43.909 Migraine, unspecified, not intractable, without status migrainosus; R06.89 Other abnormalities of breathing; E66.813 Obesity, class 3; G89.4 Chronic pain syndrome; Z79.890 Hormone replacement therapy; Z79.899 Other long term (current) drug therapy; Z87.891 Personal history of nicotine dependence; T50.915A Adverse effect of multiple unspecified drugs, medicaments and biological substances, initial encounter
CPT/HCPCS: 36415; 70450; 80048; 80053; 80061; 81001; 82140; 82607; 82746; 82803; 82962; 83036; 83690; 83735; 84100; 84443; 85025; 87077; 87086; 87088; 93005; 94668; 97116; 97162; 97165; 97530; 97535; 97802; 99252; 99284; A4216; G0463

== ENCOUNTER 2025-03-24 22:07 | Inpatient (IN) | payer MEDICARE, OTHER, SELFPAY ==
[2025-03-24 22:07] VITALS: BP 168/80; PULSE 79; RESP 25; TEMP 36.7; O2SAT 96
[2025-03-24 22:24] VITALS: O2SAT 98
[2025-03-24 22:27] VITALS: BP 168/80; PULSE 74; RESP 19; TEMP 36.9; O2SAT 94
[2025-03-24 22:28] VITALS: BMI 46.7
--- NOTE | 2025-03-24 22:34 | EKG12_ITS ---
Test Reason : DYSRHYTHMIA Blood Pressure : */* mmHG Vent. Rate : 66 BPM Atrial Rate : 66 BPM P-R Int : 142 ms QRS Dur : 82 ms QT Int : 438 ms P-R-T Axes : 58 38 28 degrees QTcB Int : 459 ms Normal sinus rhythm Nonspecific ST abnormality Abnormal ECG Confirmed by DEVI DAVIS, VLAD ([id number]), per diem registered nurse MAIRA JENKINS ([id number]) on 03/25/2025 1:04:40 PM Referred By: Confirmed By: VLAD QUINONEZ MD
--- NOTE | 2025-03-24 22:36 | EX.ED.DYSGE1 ---
HPI History of Present Illness Chief Complaint: Shortness of Breath Informant: patient and spouse/S.O. Narrative Narrative: 64-year-old female recently discharged in the hospital for UTI and encephalopathy now presenting with several hours worth of dyspnea and epigastric pain. Even though its only been there for several hours she cannot remember which started first. She is a poor informant. She denies any nausea or vomiting. She denies any chest discomfort today although she had some tightness and heaviness in her chest yesterday that got better after she used an albuterol inhaler. She has chronic edema in her legs that is no worse. She denies any diarrhea, bright red blood per rectum, melena. Pain does not go into her back. She does not drink any alcohol. She has had prior appendectomy, hysterectomy, still has her gallbladder to her knowledge. This did not necessarily occur after meal and when she ate some apples, she states I feel like they got stuck pointing to her stomach, but states that the pain did not get worse with eating. She and significant other states that the confusion has not recurred and has been resolved since prior to her discharge home from the hospital. She takes no anticoagulants. 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 Hallux rigidus, left foot MRSA infection Uses wheelchair Walker as ambulation aid High cholesterol CPAP (continuous positive airway pressure) dependence Sleep apnea Hypothyroidism Anxiety disorder, unspecified Chronic pain Depressive 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 Obesity hypoventilation syndrome Obesity Normal stress echocardiogram Wears glasses PTSD (post-traumatic stress disorder) Depression Anxiety Thyroid disease Insulin dependent diabetes mellitus Ambulates with cane Fibromyalgia Arthritis DVT (deep venous thrombosis) High cholesterol Migraine headache Back pain Gait instability Syncope Dietary restriction History of diverticulitis Gastric reflux Former smoker ASV (adaptive servo-ventilation) use counseling On home oxygen therapy Shortness of breath on exertion Leg cramps History of pain when walking History of edema History of stress test Hypertension Implantable intrathecal infusion pump present Mixed connective tissue disease Osteoarthritis History of DVT (deep vein thrombosis) History of pulmonary embolus (PE) Atrophic vaginitis Bone spur Osteoarthritis calcium calcifications Mixed connective tissue disease History of neuropathy History of spinal stenosis History of diabetes mellitus Acromioclavicular arthrosis Strain of shoulder, left Neck pain Limb weakness Difficulty balancing Fatigue Shoulder pain Gastroesophageal reflux disease DJD (degenerative joint disease) of lumbar spine Home Medications ?Medication ?Instructions ?Recorded ?Last Taken ?Type omeprazole 40 mg capsule,delayed 40 mg PO DAILY GERD 08/30/13 02/20/24 History release levothyroxine 50 mcg tablet 50 mcg PO DAILY thyroid 10/21/17 09/15/22 History atenolol 25 mg tablet 25 mg PO DAILY heart 05/18/19 02/18/24 History methotrexate sodium 2.5 mg tablet 20 mg PO FR fibromyalgia 08/19/20 09/10/22 History leucovorin calcium 10 mg tablet 5 mg PO FR supplement 12/08/20 09/10/22 History cholecalciferol (vitamin D3) 25 25 mcg PO DAILY supplement 09/13/22 09/15/22 History mcg (1,000 unit) capsule clonidine HCl 0.1 mg tablet 0.1 mg PO Q8H PRN PRN 03/03/24 02/20/24 13:30 Rx Anxiety/tremors #1 TAB folic acid 1 mg tablet 1 mg PO BREAKFAST supplement #30 03/03/24 Unknown Rx tabs oxycodone-acetaminophen 5 mg-325 1 tab PO BID pain 07/27/24 Unknown History mg tablet lancets-blood glucose test #1 ea 07/28/24 Unknown Rx strips-pen needles with gauze kit gabapentin 100 mg capsule 100 mg PO TID nerve pain 90 days 09/03/24 Unknown Rx #270 caps blood-glucose sensor (FreeStyle #6 ea 09/21/24 Unknown Rx Prema 3 Plus Sensor device) sumatriptan succinate 25 mg tablet See Rx Instructions PO .COMPLEX 10/12/24 Unknown Rx (Imitrex) headache #10 tabs semaglutide 1 mg/dose (4 mg/3 mL) 1 mg (0.75 mL) subcut QWEEK #3 mL 10/30/24 Unknown Rx subcutaneous pen injector (Ozempic) insulin glargine-yfgn 100 unit/mL 52 unit (0.52 mL) subcut QHS 11/12/24 Unknown Rx (3 mL) subcutaneous pen diabetes #5 pens escitalopram oxalate 20 mg tablet 20 mg PO DAILY for depressive 07/08/25 Unknown Rx disorder #90 TABLETS fenofibrate nanocrystallized 48 mg 48 mg PO DAILY 30 days #30 tabs 03/18/25 Unknown Rx tablet hydroxyzine pamoate 50 mg capsule 25 mg (1/2 x 50 mg) PO QHS mood 03/18/25 Unknown Rx #30 caps insulin lispro 100 unit/mL 25 unit (0.25 mL) subcut TIDWMEAL 03/18/25 Unknown Rx subcutaneous pen (Humalog KwikPen #15 mL (U-100) Insulin) lorazepam 0.5 mg tablet 0.5 mg PO TID #0 tabs 03/18/25 Unknown Rx lorazepam 1 mg tablet 0.5 mg (1/2 x 1 mg) PO TID mood 7 03/18/25 Unknown Rx days #0 tabs tizanidine 4 mg tablet 2 mg (1/2 x 4 mg) PO TID PRN 03/18/25 Unknown Rx Muscle spasm 3 days #0 tabs trazodone 100 mg tablet 50 mg (1/2 x 100 mg) PO QHS mood 03/18/25 02/19/24 Rx 30 days #0 tabs Allergy/AdvReac Type Severity Reaction Status Date / Time niacin Allergy Itching Verified 03/24/25 22:08 venlafaxine AdvReac Severe Vomiting Verified 03/21/25 10:01 metformin AdvReac Intermediate Diarrhea Verified 03/21/25 10:01 Family History Sister Breast cancer Diabetes Kidney disease Other Arthritis Heart disease Surgical History History of bunionectomy of both great toes History of lumbar fusion History of total right knee replacement Hx of surgical procedure Hx of arthroscopic knee surgery History of carpal tunnel release Hx of hysterectomy History of back surgery Hx of total knee replacement hx of plantar fasciotomy Social History household members: spouse Smoking Status: Former smoker alcohol intake: never substance use type: does not use caffeine: No what type of physical activity do you participate in: none seatbelt use: always do you feel safe at home: Yes additional social history: [id number] Patient is disabled ROS ROS ED Constitutional Constitutional ED: Denies chills or fever(s) Eyes Eyes: Denies change in vision or diplopia ENT ENT ED: Denies rhinorrhea or sore throat Cardiovascular Cardiovascular: Reports leg edema and other Details: Chest heaviness/tightness yesterday not today ; Denies orthopnea or palpitations Respiratory/Chest Respiratory/Chest: Reports dyspnea; Denies cough or orthopnea Gastrointestinal Gastrointestinal: Reports abdominal pain; Denies diarrhea, hematochezia, melena, nausea or vomiting Genitourinary Genitourinary ED: Denies dysuria or hematuria Musculoskeletal Musculoskeletal: Denies back pain or neck pain Integumentary Denies abscess or rash Neurologic Neurologic: Denies headache(s), paresthesias or weakness Psychiatric Psychiatric: Denies suicidal thoughts EXAM Physical Exam Const Vital Signs: 03/24/25 22:07 03/24/25 22:24 03/24/25 22:27 Temperature 98.1 F 98.4 F Temperature Source Temporal Oral Pulse Rate 79 74 Respiratory Rate 25 H 19 H Respiratory Effort Short of Breath Respiratory Depth Shallow Respiratory Pattern Tachypnea Blood Pressure 168/80 H 168/80 H Blood Pressure Mean 109 109 Pulse Ox 96 94 Oxygen Delivery Method Room Air Room Air Room Air 03/24/25 22:47 03/24/25 22:48 03/24/25 23:23 Temperature 98.8 F Temperature Source Oral Pulse Rate 64 58 L Respiratory Rate 22 H 18 Respiratory Effort Respiratory Depth Respiratory Pattern Tachypnea Blood Pressure 158/74 H Blood Pressure Mean 102 Pulse Ox 94 93 Oxygen Delivery Method Room Air Room Air 03/25/25 00:00 03/25/25 01:00 03/25/25 01:00 Temperature 98.8 F 98.8 F Temperature Source Oral Oral Pulse Rate 53 L 52 L 54 L Respiratory Rate 18 18 24 H Respiratory Effort Respiratory Depth Respiratory Pattern Blood Pressure 142/68 H 158/83 H 152/69 H Blood Pressure Mean 92 108 96 Pulse Ox 93 93 91 Oxygen Delivery Method Room Air Room Air 03/25/25 02:00 03/25/25 02:00 03/25/25 03:00 Temperature 97.9 F Temperature Source Oral Pulse Rate 52 L 53 L 55 L Respiratory Rate 24 H 32 H 20 H Respiratory Effort Respiratory Depth Respiratory Pattern Blood Pressure 156/88 H 156/88 H 147/84 H Blood Pressure Mean 110 110 105 Pulse Ox 94 92 90 Oxygen Delivery Method Room Air Room Air 03/25/25 03:25 Temperature 98.2 F Temperature Source Pulse Rate 61 Respiratory Rate 18 Respiratory Effort Respiratory Depth Respiratory Pattern Blood Pressure 147/84 H Blood Pressure Mean 105 Pulse Ox 92 Oxygen Delivery Method Positive well nourished, well developed and obese General Appearance ED: well developed and NAD Nutritional Appearance: obese HEENT Reports moist mucous membranes normocephalic and atraumatic Eyes PERRL and EOMs intact bilaterally Neck full ROM, no lymphadenopathy, supple and no JVD Resp normal respiratory effort Resp Narrative: Converses in full sentences no distress. Mild inspiratory wheezes both lungs, equal breath sounds bilaterally, otherwise clear and trachea midline. Cardio regular rate, regular rhythm and no murmurs GI non-tender and non-distended Auscultation: normoactive bowel sounds Palpation: soft Back/Spine no CVA tenderness General Back: other FROM Extremity normal to inspection General Extremety ED: Yes edema; Negative for pulses abnormal or tenderness General Extremity: edema bilateral lower extremity Details: moderate; Negative for pulses abnormal Neuro oriented x3, CN's II-XII intact bilaterally and no sensory deficits noted Sensorium / Orientation: awake and alert Motor Exam: strength 5/5 throughout Skin no rashes or lesions noted and no wounds MDM MDM MDM Narrative Medical decision making narrative: Patient's initial chest x-ray 2 views of my interpretation appears unremarkable, before scanning her abdomen I waited for her D-dimer to return which was elevated. Therefore I sent her to CT for CT angiography of the chest, abdomen, pelvis. It shows no acute abdomen/pelvis pathology, no PE, but bilateral pneumonia. I reviewed the images and report which I agree with. The rest of her testing is fairly unremarkable including her lactic acid which is normal, she has some elevated liver enzymes which are similar to prior and her lipase is negative and her proBNP is normal ruling out acute congestive heart failure as reason for her dyspnea. Therefore concern the possibility of outpatient treatment, give her a dose of Zosyn and observed her. I had nurses ambulate her, and with walking 10 feet, she dropped down to 83% and was a little dyspneic. She recovered after a few minutes of resting. Given this I think she will be better off admitted. Will add atypical coverage as well. Lab Data Attestation: I reviewed the patient's lab results. Labs: Laboratory Results - last 24 hr 03/24/25 22:43 WBC 8.1 RBC 4.37 Hgb 12.9 Hct 39.6 MCV 90.6 MCH 29.5 MCHC 32.6 RDW Std Deviation 45.9 H RDW Coeff of Mouna 13.9 Plt Count 227 MPV 9.4 Immature Gran % (Auto) 0.500 Neut % (Auto) 67.8 Lymph % (Auto) 23.4 [place] % (Auto) 5.6 Eos % (Auto) 2.2 Baso % (Auto) 0.5 Absolute Neuts (auto) 5.5 Absolute Lymphs (auto) 1.89 Nucleated RBC % 0 D-Dimer Quant (PE/DVT) 0.76 H* Sodium 141 Potassium 3.7 Chloride 102 Carbon Dioxide 26.4 Anion Gap 12 BUN 8 Creatinine 0.72 Estim Creat Clear Calc 89.83 Est GFR (MDRD) Non-Af 93 BUN/Creatinine Ratio 10.6 Glucose 200 H Lactic Acid 1.8 Calcium 8.9 Total Bilirubin 0.42 AST 83 H ALT 114 H Alkaline Phosphatase 110 H Troponin T High Sens 7 NT pro BNP II 556 Total Protein 6.6 Albumin 3.7 Globulin 2.9 Albumin/Globulin Ratio 1.3 Lipase 33 Radiography Diagnostic Testing: Clinical Impression(s) from Imaging Studies Chest X-Ray 03/24/25 23:00 IMPRESSION: Under aerated lungs. Tiny bilateral effusions. Interstitial lung disease which appears chronic. Reading Location: [facility] Chest/Abdomen/Pelvis CTA 03/24/25 23:17 IMPRESSION: Bilateral pneumonia. Possible hepatitis. Reading Location: [facility] Rhythm Strip Rhythm Strip: Sinus Rhythm Rate: 65 Ectopy: None EKG Initial EKG: Attestation: I personally reviewed and interpreted this EKG as follows: Interpretation: Sinus Rhythm and No Acute Injury Pattern Comments: Nml axis & intervals; nml EKG Management Discussion w/another healthcare provider: Hospitalist Additional Tests and Interventions Additional Tests or Interventions: PSI/PORT Score: Pneumonia Severity Index for CAP from [email or web address] on 03/25/2025 All calculations should be rechecked by clinician prior to use RESULT SUMMARY: 86 points Risk Class III, 0.9-2.8% mortality. Outpatient or inpatient treatment, depending on clinical judgment. INPUTS: Age ?> 64 years Sex ?> -10 = Female [facility] resident ?> 0 = No Neoplastic disease ?> 0 = No Liver disease history ?> 20 = Yes CHF history ?> 0 = No Cerebrovascular disease history ?> 0 = No Renal disease history ?> 0 = No Altered mental status ?> 0 = No Respiratory rate >=0 breaths/min ?> 0 = No Systolic blood pressure <90 mmHg ?> 0 = No Temperature <35?C (95?F) or >39.9?C (103.8?F) ?> 0 = No Pulse >=25 beats/min ?> 0 = No pH <7.35 ?> 0 = No BUN >=0 mg/dL or >=1 mmol/L ?> 0 = No Sodium <130 mmol/L ?> 0 = No Glucose >=50 mg/dL or >=4 mmol/L ?> 0 = No Hematocrit <30% ?> 0 = No Partial pressure of oxygen <60 mmHg or <8 kPa ?> 10 = Yes Pleural effusion on x-ray ?> 0 = No Discharge Plan Dx/Rx/DC Orders Clinical Impression: Bilateral pneumonia, Hypoxemia, Acute epigastric pain Disposition Disposition: Acute Care [facility]
[2025-03-24 22:47] VITALS: O2SAT 94
[2025-03-24 22:48] VITALS: PULSE 64; RESP 22
[2025-03-24 22:49] LABS: Hematocrit 39.6 % (37-47); Hemoglobin 12.9 g/dL (12.0-15.0); Immature Granulocytes Count 0.040 X10^3/uL (0.0-0.0); Mean Corp Hgb Conc 32.6 g/dL (32-36); Mean Corpuscular Volume 90.6 fL (81-99); Mean Platelet Vol. 9.4 fl (6.2-12.0); NRBC Flagged by Analyzer 0 % (0-5); Platelet Count 227 K/mm3 (150-450); RBC Distribution Width CV 13.9 % (11.6-14.6); RBC Distribution Width SD 45.9 fl (35.1-43.9); Red Blood Count 4.37 M/mm3 (4.2-5.4); White Blood Count 8.1 K/mm3 (4.4-11.0)
--- OUTSIDE RECORDS SUMMARY | 2025-03-24 22:55 | XMS RPT_ITS | CCD ---
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 Rica Padgett Primary Care Provider Dr. Roscoe Helton Attending Provider Dr. Pj Mahoney Referring Provider [phone] Rica Padgett DO Primary Care Provider NICOLÁS AGGARWAL Referring Unavailable RICA PADGETT Primary Care Unavailable NICOLÁS AGGARWAL Attending Unavailable RICA PADGETT Primary Care Unavailable Dr. Rica Padgett Primary Care Provider [phone] Dr. Rica Padgett Referring Provider SAGE Ruiz Attending Provider Dr. Rica Padgett Primary Care Provider Dr. Rica Padgett Referring Provider SAGE Ruiz Attending Provider Dr. Marie Dee Emergency Provider Dr. Adebayo Mckeon Admit Provider Dr. Adebayo Mckeon Attending Provider Dr. Adebayo Mckeon Other Provider Dr. Tre Anderson Attending Provider Dr. Tre Anderson Other Provider Dr. Matt Oglesby Attending Provider Malys DO, Rica A Primary Care Provider AMISHYS , DR RICA Alonso Primary Care Physician PJ MAHONEY Attending Unavailable MALYS DO, DR RICA Alonso Primary Care Unavailable PJ MAHONEY Attending Unavailable AMISHYS DO, DR RICA Alonso Primary Care Unavailable PJ MAHONEY Attending Unavailable AMIHSYS DO, DR RICA Alonso Primary Care Unavailable PJ MAHONEY Admitting Unavailable MATTHEW HERNÁNDEZ PA-C Consulting Unavailable PJ MAHONEY Referring Unavailable ERIC NOVELTY TWISTER OPERATOR-DISTRICT MEDICAL EXAMINER, RICA M Consulting Unavaila ble Malys DO, Rica Flex Primary Care Provider [phone] RENITA MIJARES Attending Unavailable RENITA MIJARES Referring Unavailable MALYS, RICA FLEX Primary Care Unavailable ChipErin lester Primary Care Provider ChipErin lester Primary Care Provider Tre Anderson Attending Unavailable Malys, Rica Primary Care Unavailable David Caruso Admitting Unavailable David Caruso Consulting Unavailable Tre Anderson Consulting Unavailable Malys, Rica Attending Unavailable Malys, Rica Primary Care Unavailable Malys, Rica Referring Unavailable Malys, Rica Primary Care Unavailable Rm Keating Attending Unavailable Rafi Berry Referring Unavailable Malys, Rica Primary Care Unavailable Rafi Berry Attending Unavailable Malys, Rica Primary Care Unavailable Morgan Juárez Admitting Unavailable Morgan Juárez Consulting Unavailable Parviz Gupta Attending Unavailable Alonso, Parviz Consulting Unavailable Malys, Rica Primary Care Unavailable Morgan Juárez Admitting Unavailable Morgan Juárez Consulting Unavailable Alonso Parviz Attending Unavailable Tarik Huizar Consulting Unavailable Adeli, Amir Consulting Unavailable Hinduja, Licha Consulting Unavailable Primitivo, Doreen Consulting Unavailable Zha, Sunitha Consulting Unavailable Jimbo, Anup Consulting Unavailable Maude, Avelina Consulting Unavailable Bittar, Hector Consulting Unavailable Carlin, Perry Consulting Unavailable Hayes, Akhil Consulting Unavailable Bemelissa, Rosa M Consulting Unavailable Jenna, Payam Consulting Unavailable Jimmy, Yamini Consulting Unavailable Ridha, Mohamed Consulting Unavailable Zaghlouleh, Mhd Castro Consulting UnavailBud Burgess Consulting Unavailable Danielle, Rami Consulting Unavailable Doris, Allen Consulting Unavailable Tc, Lauren Consulting Unavailable Hannawi, Yousef Consulting Unavailable Malys, Rica Primary Care Unavailable Rm Keating Attending Unavailable Malys, Rica Primary Care Unavailable Tre Flores Attending Unavailable Rafi Berry Referring Unavailable Rafi Berry Attending Unavailable Malys, Rica Primary Care Unavailable Malys, Rica Primary Care Unavailable Maritn Trejo Attending Unavailable BasaliBeman Referring Unavailable Malys, Rica Attending Unavailable Malys, Rica Primary Care Unavailable Marissa Ruiz Attending Unavailable Malys, Rica Primary Care Unavailable Marissa Ruiz Attending Unavailable Malys, Rica Primary Care Unavailable Malys, Rica Referring Unavailable Malys, Rica Primary Care Unavailable Matt Oglesby Attending Unavailable Tarik Huizar Consulting Unavailable Adeli, Amir Consulting Unavailable Hinduja, Licha Consulting Unavailable Primitivo, Doreen Consulting Unavailable Zha, Sunitha Consulting Unavailable Jimbo, Anup Consulting Unavailable Maude, Avelina Consulting Unavailable Bittar, Hector Consulting Unavailable Carlin, Perry Consulting Unavailable Hayes, Akhil Consulting Unavailable Bemelissa, Rosa M Consulting Unavailable Jenna, Payam Consulting Unavailable Jimmy, Yamini Consulting Unavailable Ridha, Mohamed Consulting Unavailable Zaghlouleh, Mhd Castro Consulting UnavailBud Burgess Consulting Unavailable Danielle, Rami Consulting Unavailable Doris, Allen Consulting Unavailable Tc, Lauren Consulting Unavailable Hannawi, Yousef Consulting Unavailable Pj Lee Attending Unavailable Malys, Rica Primary Care Unavailable Malys, Rica Primary Care Unavailable Pj Lee Attending Unavailable Marissa Ruiz Attending Unavailable Malys, Rica Primary Care Unavailable Malys, Rica Referring Unavailable Marissa Ruiz Attending Unavailable Malys, Rica Primary Care Unavailable Malys, Rica Referring Unavailable Malys, Rica Primary Care Unavailable Uday Stokes Attending Unavailable Uday Stokes Referring Unavailable David Caruso Attending Unavailable Morgan Juárez Attending Unavailable Malys, Rica Primary Care Unavailable Deuce Shaw V Attending Unavailable Deuce Shaw V Referring Unavailable David Caruso Consulting Unavailable Tre Anderson Attending Unavailable Malys, Rica Primary Care Unavailable David Caruso Admitting Unavailable Marissa Ruiz Attending Unavailable Malys, Rica Referring Unavailable Malys, Rica Primary Care Unavailable Malys, Rica Attending Unavailable Malys, Rica Primary Care Unavailable Malys, Rica Referring Unavailable Pj Lee Attending Unavailable Malys, Rica Primary Care Unavailable Pj Lee Attending Unavailable Malys, Rica Primary Care Unavailable Malys, Rica Referring Unavailable Malys, Rica Primary Care Unavailable Michi Lind Attending Unavailable Malys, Rica Primary Care Unavailable Malys, Rica Referring Unavailable Marissa Ruiz Attending Unavailable Allergies Allergy Classification Reported Allergen(s) Allergy Type Date of Onset Reaction(s) Facility Anti-Epileptic Agents (2 sources) gabapentin Drug Allergy 5 Mental Status Change [facility] Work Phone: Niacin (1 source) Niacin Drug Allergy 7 Rash, Hives, Itching [facility] (2 sources) gabapentin Drug Allergy 6 hives, light headed [facility] (1 source) gabapentin Drug Allergy Hives/Urticaria [facility] (8 sources) Cephalexin Drug Allergy 2 Other [facility] (16 sources) Niacin; Translations: [NIACIN] Drug Allergy 7 Rash, Hives, Itching [facility] (5 sources) gabapentin; Translations: [GABAPENTIN] Drug Allergy 5 Mental Status Change [facility] Work Phone: (2 sources) metFORMIN Drug Allergy 3 Diarrhea [facility] (3 sources) venlafaxine; Translations: [VENLAFAXINE] Drug Allergy 4 GI [facility] (2 sources) Niacin Drug Allergy 3 [facility] (1 source) Cephalexin Drug Allergy 5 [facility] Repository (1 source) metFORMIN Drug Allergy 5 [facility] (1 source) Niacin Drug Allergy 5 [facility] (1 source) venlafaxine Drug Allergy 5 [facility] Medications Current Medications Medication Drug [...] 1 tab po q6h as needed HYDROCODONE-ACETAMINOPHEN [id number] Rica Padgett, acetaminophen 325 mg / oxyCODONE [...] tablet (1 source) Cephalosporin Antibacterial Start: End: 10-03-2 021 take 1 tablet by mouth four times [...] oral capsule (14 sources) Vitamin D Start: 023 take 25 ug by mouth once daily [...] Start: 12-15-2019 take 1 tablet by armen th at bedtime Citalopram (Celexa) 10 mg tablet [...] affected area daily as needed DICLOFENAC SODIUM [id number] Rica Padgett, Diclofenac Sodiu m (Voltaren) 1 [...] Ordered Start: 02-03-2023 take 1 capsule by [facility] three times daily gabapentin 300 mg oral [...] MG TABS 1 po daily HYDROXYZINE HCL [id number] Rica Padgett DO Start: 08-30-2013 take 100 [...] 100 mg tablet Active 0 PO .COMPLEX 6 May 30th, 2022 4:20pm take TWO 150 mg tablets [...] 20 MG TABS 1 po daily RIVAROXABAN [id number] Adebayo Saunders DO take 2 tablets by [facility] once daily rivaroxaban (XARELTO) 10 mg [...] Drug Class(es) Dates Sig (Normalized) Sig (Original) [id number] actuat albuterol 0.09 mg/actuat metered dose [...] on above: Take 1 tablet by armen twice daily. calcium chloride 0.0014 meq/ml / [...] on above: Take by mouth. estrogens, conjugated (prison) 0.625 mg/ml vaginal cream (8 sources) Estrogen [...] MG TABS 1 po daily LISINOPRIL-HYDROCHLOROTH IAZIDE [id number] Rica Padgett DO Start: 12-06-2014 End: 09-17-2022 [...] sources) Serotonin Reuptake Inhibitor Start: 014 End: 05-22-2 018 take 50 mg by mouth once daily [...] oral tablet (1 source) Vitamin B12 End: 016 take 1 tablet by mouth once daily [...] site; Translations: [Arthropathy] Onset: 0 Chronic Other aftercare (1 source) Other residential (current) drug therapy; Translations: [Other residential (current) drug therapy] Onset: 5 Episodic Other circulatory disease (1 source) Elevated blood-pressure [...] Chronic Other nervous system disorders (1 source) Chronic pain syndrome; Translations: [Chronic pain syndrome] Onset: 5 Chronic Other nervous system disorders (2 sources) [...] 3 Chronic Residual codes; unclassified (1 source) Sleep apnea, unspecified; Translations: [Sleep apnea, unspecified] Onset: 5 Chronic Residual codes; unclassified (1 source) Dependence on other enabling machines and devices; Translations: [Dependence on other enabling machines and devices] Onset: 5 Chronic Residual codes; unclassified (1 source) Primary [...] Translations: [Hypothyroidism, unspecified] Onset: 5 Chronic Unclassified (3 sources) Body mass index (BMI) 40.0-44.9, adult; [...] ON LOWER LF T LEG/POST KNEE REPLACEMENT Unclassified (1 source) Other toxic encephalopathy; Translations: [Other toxic encephalopathy] Onset: 5 Urinary tract infections (2 sources) Acute cystitis without hematuria; Translations: [Acute cystitis without hematuria] Onset: 5 Episodic Viral infection (5 sources) Disease caused by [...] Test Name Value Interpretation Reference Range Facility Endocrinology Visit Reporton 03-21-2025 Endocrinology Visit Report Normal [facility] Basic Metabolic Profile (BMP )on 03-18-2025 BUN/CRE 12.7 RATIO Normal - [facility] Comment on above: Order Comment: REDRA W. PREVIOUS SPECIMEN REJECTED DUE TOHEMOLYSIS. 03/18/25622 [facility] Minnie. Performed By: #### L 500.2500 ####[facility] [address] [place], [address] Calcium [Mass/Vol] 9.1 mg/dL Normal 7.6-11.0 [facility] Comment on above: Order Comment: REDRA W. PREVIOUS SPECIMEN REJECTED DUE TOHEMOLYSIS. 03/18/25622 Dc R Hartman. Performed By: #### L 500.2500 ####[facility] [address] [place], [address] Chloride [Moles/Vol] 98 mmol/L Normal 98-108 [facility] Comment on above: Order Comment: REDRA W. PREVIOUS SPECIMEN REJECTED DUE TOHEMOLYSIS. 03/18/25622 Dc R Hartman. Performed By: #### L 500.2500 ####[facility] [address] [place], [address] CO2 [Moles/Vol] 25.9 mmol/L Normal 21.0-32.0 [facility] Comment on above: Order Comment: REDRA W. PREVIOUS SPECIMEN REJECTED DUE TOHEMOLYSIS. 03/18/25622 Dc R Hartman. Performed By: #### L 500.2500 ####[facility] [address] [place], [address] Creatinine [Mass/Vol] 0.62 mg/dL Low 0.70-1.20 [facility] Comment on above: Order Comment: REDRA W. PREVIOUS SPECIMEN REJECTED DUE TOHEMOLYSIS. 03/18/25622 Dc R Hartman. Performed By: #### L 500.2500 ####[facility] [address] [place], [address] ECRCL 88.86 ml/min Normal 50-250 [facility] Comment on above: Order Comment: REDRA W. PREVIOUS SPECIMEN REJECTED DUE TOHEMOLYSIS. 03/18/25622 Dc R Hartman. Performed By: #### L 500.2500 ####[facility] [address] [place], [address] GAP 13 Normal 5-15 [facility] Comment on above: Order Comment: REDRA W. PREVIOUS SPECIMEN REJECTED DUE TOHEMOLYSIS. 03/18/25622 Dc R Hartman. Performed By: #### L 500.2500 ####[facility] [address] [place], [address] GFR/1.73 sq M.predicted among non-blacks MDRD (S/P/Bld) [Vol rate/Area] 98 mL/min/{1.73_m2} Normal >60 [facility] Comment on above: Order Comment: REDRA W. PREVIOUS SPECIMEN REJECTED DUE TOHEMOLYSIS. 03/18/25622 Dc R Hartman. Result Comment: mL/m in/1.73m2 CKD-EPI Creatinine Equation (2020) Performed By: #### L 500.2500 ####[facility] [address] [place], [address] Glucose [Mass/Vol] 287 mg/dL High 70-99 [facility] Comment on above: Order Comment: REDRA W. PREVIOUS SPECIMEN REJECTED DUE TOHEMOLYSIS. 03/18/25622 Dc R Hartman. Performed By: #### L 500.2500 ####[facility] [address] [place], [address] Potassium [Moles/Vol] 3.7 mmol/L Normal 3.3-5.1 [facility] Comment on above: Order Comment: REDRA W. PREVIOUS SPECIMEN REJECTED DUE TOHEMOLYSIS. 03/18/25622 Dc R Hartman. Performed By: #### L 500.2500 ####[facility] [address] [facility] [address] Sodium [Moles/Vol] 137 mmol/L Normal 133-145 [facility] Comment on above: Order Comment: REDRA W. PREVIOUS SPECIMEN REJECTED DUE TOHEMOLYSIS. 03/18/25622 Dc R Hartman. Performed By: #### L 500.2500 ####[facility] [address] [facility] [address] Urea nitrogen [Mass/Vol] 8 mg/dL Normal - [facility] Comment on above: Order Comment: REDRA W. PREVIOUS SPECIMEN REJECTED DUE TOHEMOLYSIS. 03/18/25622 Dc R Hartman. Performed By: #### L 500.2500 ####[facility] [address] [facility] [address] BUN Normal -19 [facility] Comment on above: Result Comment: This specimen has been REJECTED due to Laboratory criteria:Hemolyzed.LMARTELL has been notified of need of recollection.03/18/25621 Dc R Hartman Performed By: #### L 100.0100, L500.2500 ####[facility] [address] [place], [address] BUN/CRE Normal 10-20 [facility] Comment on above: Result Comment: This specimen has been REJECTED due to Laboratory criteria:Hemolyzed.LMARTELL has been notified of need of recollection.03/18/25621 Dc R Hartman Performed By: #### L 100.0100, L500.2500 ####[facility] [address] [facility] [address] Calcium Normal 7.6-11.0 [facility] Comment on above: Result Comment: This specimen has been REJECTED due to Laboratory criteria:Hemolyzed.[facility] has been notified of need of recollection.03/18/25621 Dc R Hartman Performed By: #### L 100.0100, L500.2500 ####[facility] [address] [place], [address] CL Normal 98-108 [facility] Comment on above: Result Comment: This specimen has been REJECTED due to Laboratory criteria:Hemolyzed.[facility] has been notified of need of recollection.03/18/25621 Dc R Hartman Performed By: #### L 100.0100, L500.2500 ####[facility] [address] [place], [address] CO2 Normal 21.0-32.0 [facility] Comment on above: Result Comment: This specimen has been REJECTED due to Laboratory criteria:Hemolyzed.[facility] has been notified of need of recollection.03/18/25621 Dc R Hartman Performed By: #### L 100.0100, L500.2500 ####[facility] [address] [facility] [address] CREAT,SERUM Normal 0.70-1.20 [facility] Comment on above: Result Comment: This specimen has been REJECTED due to Laboratory criteria:Hemolyzed.[facility] has been notified of need of recollection.03/18/25621 Dc R Hartman Performed By: #### L 100.0100, L500.2500 ####[facility] [address] [place], [address] eGFR Normal >60 [facility] Comment on above: Result Comment: This specimen has been REJECTED due to Laboratory criteria:Hemolyzed.[facility] has been notified of need of recollection.03/18/25621 Dc R Hartman Performed By: #### L 100.0100, L500.2500 ####[facility] [address] [place], [address] GAP Normal 5-15 [facility] Comment on above: Result Comment: This specimen has been REJECTED due to Laboratory criteria:Hemolyzed.[facility] has been notified of need of recollection.03/18/25621 Dc R Hartman Performed By: #### L 100.0100, L500.2500 ####[facility] [address] [place], [address] GLU Normal 70-99 [facility] Comment on above: Result Comment: This specimen has been REJECTED due to Laboratory criteria:Hemolyzed.[facility] has been notified of need of recollection.03/18/25621 Dc R Hartman Performed By: #### L 100.0100, L500.2500 ####[facility] [address] [place], [address] Potassium Normal 3.3-5.1 [facility] Comment on above: Result Comment: This specimen has been REJECTED due to Laboratory criteria:Hemolyzed.[facility] has been notified of need of recollection.03/18/25621 Dc R Hartman Performed By: #### L 100.0100, L500.2500 ####[facility] [address] [place], [address] Basic Metabolic Profile (BMP) Normal 133-145 [facility] Comment on above: Result Comment: This specimen has been REJECTED due to Laboratory criteria:Hemolyzed.[facility] has been notified of need of recollection.03/18/25621 Dc R Hartman Performed By: #### L 100.0100, L500.2500 ####[facility] [address] [place], [address] Bedside Glucoseon 03-18-2025 FINGERSTICK GLU 208 mg/dL High 74-106 [facility] Comment on above: Result Comment: MARCELLA GEMENT OF PATIENT CARE PER NURSING PROTOCOL Performed By: #### L 501.080 ####[facility] [address] [place], [address] FINGERSTICK GLU 274 mg/dL High 74-106 [facility] Comment on above: Result Comment: MARCELLA GEMENT OF PATIENT CARE PER NURSING PROTOCOL Performed By: #### L 501.080 ####[facility] [address] [place], [address] FINGERSTICK GLU 285 mg/dL High 74-106 [facility] Comment on above: Result Comment: MARCELLA GEMENT OF PATIENT CARE PER NURSING PROTOCOL Performed By: #### L 501.080 ####[facility] [address] [place], [address] Brain/Head without Contrasto n 03-18-2025 Brain/Head without Contrast Normal [facility] CBC W/Diff, Automatedon 07-2 PLT EST ADEQUATE Normal ADEQ [facility] Comment on above: Performed By: #### L 100.0100, L500.2500 ####[facility] [address] [place], [address] PLT MORPH CLUMPED Normal [facility] Comment on above: Performed By: #### L 100.0100, L500.2500 ####[facility] [address] [place], [address] RED CELL MORPH NORM C+C Normal NORM C C [facility] Comment on above: Performed By: #### L 100.0100, L500.2500 ####[facility] [address] [place], [address] SMEAR COMMENT SCANNED Normal [facility] Comment on above: Performed By: #### L 100.0100, L500.2500 ####[facility] [address] [place], [address] Discharge Instructionon 02-27 Discharge Instruction Normal [facility] Basic Metabolic Profile (BMP )on 03-17-2025 BUN/CRE 13.7 RATIO Normal 10-20 [facility] Comment on above: Performed By: #### L 500.2500, L501.2300 ####[facility] [address] [place], [address] Calcium [Mass/Vol] 8.8 mg/dL Normal 7.6-11.0 [facility] Comment on above: Performed By: #### L 500.2500, L501.2300 ####[facility] [address] [place], [address] Chloride [Moles/Vol] 99 mmol/L Normal 98-108 [facility] Comment on above: Performed By: #### L 500.2500, L501.2300 ####[facility] [address] [place], [address] CO2 [Moles/Vol] 21.6 mmol/L Normal 21.0-32.0 [facility] Comment on above: Performed By: #### L 500.2500, L501.2300 ####[facility] [address] [place], [address] Creatinine [Mass/Vol] 0.69 mg/dL Low 0.70-1.20 [facility] Comment on above: Performed By: #### L 500.2500, L501.2300 ####[facility] [address] [place], [address] ECRCL 88.47 ml/min Normal 50-250 [facility] Comment on above: Performed By: #### L 500.2500, L501.2300 ####[facility] [address] [place], [address] GAP 15 Normal 5-15 [facility] Comment on above: Performed By: #### L 500.2500, L501.2300 ####[facility] [address] [place], [address] GFR/1.73 sq M.predicted among non-blacks MDRD (S/P/Bld) [Vol rate/Area] 96 mL/min/{1.73_m2} Normal >60 [facility] Comment on above: Result Comment: mL/m in/1.73m2 CKD-EPI Creatinine Equation (2020) Performed By: #### L 500.2500, L501.2300 ####[facility] [address] [place], [address] Glucose [Mass/Vol] 260 mg/dL High 70-99 [facility] Comment on above: Performed By: #### L 500.2500, L501.2300 ####[facility] [address] [place], [address] Potassium [Moles/Vol] 3.9 mmol/L Normal 3.3-5.1 [facility] Comment on above: Result Comment: Hemo lysis present, Results??could be affected.?? Performed By: #### L 500.2500, L501.2300 ####[facility] [address] [place], [address] Sodium [Moles/Vol] 135 mmol/L Normal 133-145 [facility] Comment on above: Performed By: #### L 500.2500, L501.2300 ####[facility] [address] [place], [address] Urea nitrogen [Mass/Vol] 9 mg/dL Normal 4-19 [facility] Comment on above: Performed By: #### L 500.2500, L501.2300 ####[facility] [address] [place], [address] Bedside Glucoseon 03-17-2025 FINGERSTICK GLU 256 mg/dL High 74-106 [facility] Comment on above: Result Comment: MARCELLA GEMENT OF PATIENT CARE PER NURSING PROTOCOL Performed By: #### L 501.080 ####[facility] [address] [place], [address] FINGERSTICK GLU 190 mg/dL High 74-106 [facility] Comment on above: Result Comment: MARCELLA GEMENT OF PATIENT CARE PER NURSING PROTOCOL Performed By: #### L 501.080 ####[facility] [address] [place], [address] FINGERSTICK GLU 283 mg/dL High 74-106 [facility] Comment on above: Result Comment: MARCELLA GEMENT OF PATIENT CARE PER NURSING PROTOCOL Performed By: #### L 501.080 ####[facility] [address] [place], [place], [address] FINGERSTICK GLU 275 mg/dL High 74-106 [facility] Comment on above: Result Comment: MARCELLA GEMENT OF PATIENT CARE PER NURSING PROTOCOL Performed By: #### L 501.080 ####[facility] [address] [place], [address] FINGERSTICK GLU 309 mg/dL High -106 [facility] Comment on above: Result Comment: MARCELLA GEMENT OF PATIENT CARE PER NURSING PROTOCOL Performed By: #### L 501.080 ####[facility] [address] [place], [address] CBC W/Diff, Automatedon 07-2 0-2025 Absolute Lymph 2.41 X10 3/uL Normal 0.83-4.51 [facility] Comment on above: Performed By: #### L 100.0100 ####[facility] [address] [place], [address] Absolute Neut 3.2 X10 3/uL Normal 2.0-7.7 [facility] Comment on above: Performed By: #### L 100.0100 ####[facility] [address] [place], [address] Basophils/100 WBC (Bld) 0.8 % Normal 0-1 [facility] Comment on above: Performed By: #### L 100.0100 ####[facility] [address] [place], [address] Eosinophils/100 WBC (Bld) 2.6 % Normal 0-5 [facility] Comment on above: Performed By: #### L 100.0100 ####[facility] [address] [place], [address] Erythrocyte distribution width (RBC) [Ratio] 13.6 % Normal 11.6-14.6 [facility] Comment on above: Performed By: #### L 100.0100 ####[facility] [address] [place], [address] Hematocrit (Bld) [Volume fraction] 39.7 % Normal 37-47 [facility] Comment on above: Performed By: #### L 100.0100 ####[facility] [address] [place], [address] Hemoglobin (Bld) [Mass/Vol] 13.2 g/dL Normal 12.0-15.0 [facility] Comment on above: Performed By: #### L 100.0100 ####[facility] [address] [place], [address] IG% 0.500 Normal 0.0-0.9 [facility] Comment on above: Result Comment: IG% - Immature Granulocytes (promyelocytes, myelocytes andmetamyelocytes) > 1% indicates that a LEFT SHIFT is Present. Performed By: #### L 100.0100 ####[facility] [address] [place], [address] Lymphocytes/100 WBC (Bld) 38.6 % Normal 19-41 [facility] Comment on above: Performed By: #### L 100.0100 ####[facility] [address] [place], [address] MCH (RBC) [Entitic mass] 29.0 pg Normal 27.0-32.0 [facility] Comment on above: Performed By: #### L 100.0100 ####[facility] [address] [place], [address] MCHC (RBC) [Mass/Vol] 33.2 g/dL Normal 32-36 [facility] Comment on above: Performed By: #### L 100.0100 ####[facility] [address] [place], [address] MCV (RBC) [Entitic vol] 87.3 fL Normal 81-99 [facility] Comment on above: Performed By: #### L 100.0100 ####[facility] [address] [place], [address] Monocytes/100 WBC (Bld) 5.9 % Normal 0-10 [facility] Comment on above: Performed By: #### L 100.0100 ####[facility] [address] [place], [address] Neutrophils/100 WBC (Bld) 51.6 % Normal 47-70 [facility] Comment on above: Performed By: #### L 100.0100 ####[facility] [address] [place], [address] Nucleated RBC (Bld) [#/Vol] 0 10*3/uL Normal 0-5 [facility] Comment on above: Performed By: #### L 100.0100 ####[facility] [address] [place], [address] Platelet mean volume (Bld) [Entitic vol] 9.2 fL Normal 6.2-12.0 [facility] Comment on above: Performed By: #### L 100.0100 ####[facility] [address] [place], [address] Platelets (Bld) [#/Vol] 221 10*3/uL Normal 150-450 [facility] Comment on above: Performed By: #### L 100.0100 ####[facility] [address] [place], [address] RBC (Bld) [#/Vol] 4.55 10*6/uL Normal 4.2-5.4 [facility] Comment on above: Performed By: #### L 100.0100 ####[facility] [address] [place], [address] RDW SD 42.8 fl Normal 35.1-43.9 [facility] Comment on above: Performed By: #### L 100.0100 ####[facility] [address] [place], [address] WBC (Bld) [#/Vol] 6.3 10*3/uL Normal 4.4-11.0 [facility] Comment on above: Performed By: #### L 100.0100 ####[facility] [address] [place], [address] MR/CON.PCM.NEon 03-17-2025 MR/CON.PCM.NE Normal [facility] Phosphoruson 03-17-2025 Phosphate [Mass/Vol] 3.2 mg/dL Normal 2.7-4.5 [facility] Comment on above: Performed By: #### L 500.2500, L501.2300 ####[facility] [address] [place], [address] Urine Cultureon 03-17-2025 URC Below infection leve l. Staphylococcus species Buena Count 1000-10,000 GPC Poss Enterococcus sp GPC Poss Enterococcus sp Normal [facility] Comment on above: Performed By: #### M 100.2200 ####[facility] [address] [place], [address] Bedside Glucoseon 03-16-2025 FINGERSTICK GLU 294 mg/dL High 74-106 [facility] Comment on above: Result Comment: MARCELLA GEMENT OF PATIENT CARE PER NURSING PROTOCOL Performed By: #### L 501.080 ####[facility] [address] [place], [address] FINGERSTICK GLU 263 mg/dL High 74-106 [facility] Comment on above: Result Comment: MARCELLA GEMENT OF PATIENT CARE PER NURSING PROTOCOL Performed By: #### L 501.080 ####[facility] [address] [place], [address] CBC W/Diff, Automatedon 02-26 Absolute Lymph 2.48 X10 3/uL Normal 0.83-4.51 [facility] Comment on above: Performed By: #### L 500.4100, L500.4050, L501.2300, L100.0100 ####[facility] [address] [place], [address] Absolute Neut 3.8 X10 3/uL Normal 2.0-7.7 [facility] Comment on above: Performed By: #### L 500.4100, L500.4050, L501.2300, L100.0100 ####[facility] [address] [place], [address] Basophils/100 WBC (Bld) 0.7 % Normal 0-1 [facility] Comment on above: Performed By: #### L 500.4100, L500.4050, L501.2300, L100.0100 ####[facility] [address] [place], [address] Eosinophils/100 WBC (Bld) 3.1 % Normal 0-5 [facility] Comment on above: Performed By: #### L 500.4100, L500.4050, L501.2300, L100.0100 ####[facility] [address] [place], [address] Erythrocyte distribution width (RBC) [Ratio] 13.9 % Normal 11.6-14.6 [facility] Comment on above: Performed By: #### L 500.4100, L500.4050, L501.2300, L100.0100 ####[facility] [address] [place], [address] Hematocrit (Bld) [Volume fraction] 40.6 % Normal 37-47 [facility] Comment on above: Performed By: #### L 500.4100, L500.4050, L501.2300, L100.0100 ####[facility] [address] [place], [address] Hemoglobin (Bld) [Mass/Vol] 13.1 g/dL Normal 12.0-15.0 [facility] Comment on above: Performed By: #### L 500.4100, L500.4050, L501.2300, L100.0100 ####[facility] [address] [place], [address] IG% 0.600 Normal 0.0-0.9 [facility] Comment on above: Result Comment: IG% - Immature Granulocytes (promyelocytes, myelocytes andmetamyelocytes) > 1% indicates that a LEFT SHIFT is Present. Performed By: #### L 500.4100, L500.4050, L501.2300, L100.0100 ####[facility] [address] [place], [address] Lymphocytes/100 WBC (Bld) 35.5 % Normal 19-41 [facility] Comment on above: Performed By: #### L 500.4100, L500.4050, L501.2300, L100.0100 ####[facility] [address] [place], [address] MCH (RBC) [Entitic mass] 29.0 pg Normal 27.0-32.0 [facility] Comment on above: Performed By: #### L 500.4100, L500.4050, L501.2300, L100.0100 ####[facility] [address] [place], [address] MCHC (RBC) [Mass/Vol] 32.3 g/dL Normal 32-36 [facility] Comment on above: Performed By: #### L 500.4100, L500.4050, L501.2300, L100.0100 ####[facility] [address] [place], [address] MCV (RBC) [Entitic vol] 90.0 fL Normal 81-99 [facility] Comment on above: Performed By: #### L 500.4100, L500.4050, L501.2300, L100.0100 ####[facility] [address] [place], [address] Monocytes/100 WBC (Bld) 6.4 % Normal 0-10 [facility] Comment on above: Performed By: #### L 500.4100, L500.4050, L501.2300, L100.0100 ####[facility] [address] [place], [address] Neutrophils/100 WBC (Bld) 53.7 % Normal 47-70 [facility] Comment on above: Performed By: #### L 500.4100, L500.4050, L501.2300, L100.0100 ####[facility] [address] [place], [address] Nucleated RBC (Bld) [#/Vol] 0 10*3/uL Normal 0-5 [facility] Comment on above: Performed By: #### L 500.4100, L500.4050, L501.2300, L100.0100 ####[facility] [address] [place], [address] Platelet mean volume (Bld) [Entitic vol] 9.2 fL Normal 6.2-12.0 [facility] Comment on above: Performed By: #### L 500.4100, L500.4050, L501.2300, L100.0100 ####[facility] [address] [place], [address] Platelets (Bld) [#/Vol] 221 10*3/uL Normal 150-450 [facility] Comment on above: Performed By: #### L 500.4100, L500.4050, L501.2300, L100.0100 ####[facility] [address] [place], [address] RBC (Bld) [#/Vol] 4.51 10*6/uL Normal 4.2-5.4 [facility] Comment on above: Performed By: #### L 500.4100, L500.4050, L501.2300, L100.0100 ####[facility] [address] [place], [address] RDW SD 45.9 fl High 35.1-43.9 [facility] Comment on above: Performed By: #### L 500.4100, L500.4050, L501.2300, L100.0100 ####[facility] [address] [place], [address] WBC (Bld) [#/Vol] 7.0 10*3/uL Normal 4.4-11.0 [facility] Comment on above: Performed By: #### L 500.4100, L500.4050, L501.2300, L100.0100 ####[facility] [address] [place], [address] Comprehensive Metabolic Prof [facility] 03-16-2025 Albumin [Mass/Vol] 3.5 g/dL Normal 3.4-4.8 [facility] Comment on above: Performed By: #### L 500.4100, L500.4050, L501.2300, L100.0100 ####[facility] [address] [place], [address] Albumin/Globulin [Mass ratio] 1.1 {ratio} Normal 0.9-2.4 [facility] Comment on above: Performed By: #### L 500.4100, L500.4050, L501.2300, L100.0100 ####[facility] [address] [place], [address] ALK PHOS 114 U/L High 35-104 [facility] Comment on above: Performed By: #### L 500.4100, L500.4050, L501.2300, L100.0100 ####[facility] [address] [place], [address] ALT [Catalytic activity/Vol] 42 U/L High <=34 [facility] Comment on above: Performed By: #### L 500.4100, L500.4050, L501.2300, L100.0100 ####[facility] [address] [place], [address] AST [Catalytic activity/Vol] 71 U/L High <=31 [facility] Comment on above: Performed By: #### L 500.4100, L500.4050, L501.2300, L100.0100 ####[facility] [address] [place], [address] Bilirubin [Mass/Vol] 0.31 mg/dL Normal 0.00-1.30 [facility] Comment on above: Performed By: #### L 500.4100, L500.4050, L501.2300, L100.0100 ####[facility] [address] [place], [address] BUN/CRE 16.5 RATIO Normal 10-20 [facility] Comment on above: Performed By: #### L 500.4100, L500.4050, L501.2300, L100.0100 ####[facility] [address] [place], [address] Calcium [Mass/Vol] 8.6 mg/dL Normal 7.6-11.0 [facility] Comment on above: Performed By: #### L 500.4100, L500.4050, L501.2300, L100.0100 ####[facility] [address] [place], [address] Chloride [Moles/Vol] 103 mmol/L Normal 98-108 [facility] Comment on above: Performed By: #### L 500.4100, L500.4050, L501.2300, L100.0100 ####[facility] [address] [place], [address] CO2 [Moles/Vol] 26.0 mmol/L Normal 21.0-32.0 [facility] Comment on above: Performed By: #### L 500.4100, L500.4050, L501.2300, L100.0100 ####[facility] [address] [place], [address] Creatinine [Mass/Vol] 0.68 mg/dL Low 0.70-1.20 [facility] Comment on above: Performed By: #### L 500.4100, L500.4050, L501.2300, L100.0100 ####[facility] [address] [place], [address] ECRCL 88.47 ml/min Normal 50-250 [facility] Comment on above: Performed By: #### L 500.4100, L500.4050, L501.2300, L100.0100 ####[facility] [address] [place], [address] GAP 10 Normal 5-15 [facility] Comment on above: Performed By: #### L 500.4100, L500.4050, L501.2300, L100.0100 ####[facility] [address] [place], [address] GFR/1.73 sq M.predicted among non-blacks MDRD (S/P/Bld) [Vol rate/Area] 96 mL/min/{1.73_m2} Normal >60 [facility] Comment on above: Result Comment: mL/m in/1.73m2 CKD-EPI Creatinine Equation (2020) Performed By: #### L 500.4100, L500.4050, L501.2300, L100.0100 ####[facility] [address] [place], [address] Globulin (S) [Mass/Vol] 3.1 g/dL Normal 2.2-4.2 [facility] Comment on above: Performed By: #### L 500.4100, L500.4050, L501.2300, L100.0100 ####[facility] [address] [place], [address] Glucose [Mass/Vol] 223 mg/dL High 70-99 [facility] Comment on above: Performed By: #### L 500.4100, L500.4050, L501.2300, L100.0100 ####[facility] [address] [place], [address] Potassium [Moles/Vol] 4.2 mmol/L Normal 3.3-5.1 [facility] Comment on above: Performed By: #### L 500.4100, L500.4050, L501.2300, L100.0100 ####[facility] [address] [place], [address] Sodium [Moles/Vol] 139 mmol/L Normal 133-145 [facility] Comment on above: Performed By: #### L 500.4100, L500.4050, L501.2300, L100.0100 ####[facility] [address] [place], [address] T PROT 6.6 g/dL Normal 5.9-8.4 [facility] Comment on above: Performed By: #### L 500.4100, L500.4050, L501.2300, L100.0100 ####[facility] [address] [place], [address] Urea nitrogen [Mass/Vol] 11 mg/dL Normal - [facility] Comment on above: Performed By: #### L 500.4100, L500.4050, L501.2300, L100.0100 ####[facility] [address] [place], [address] Folates,Serum (Folic Acid)on 03-16-2025 FOLATES,SERUM 28.80 ng/mL Normal 4.60-34.80 [facility] Comment on above: Result Comment: Hemo lysis, Results will be affected, Requires Recollection. Performed By: #### L 501.9520, L506.0200, L501.9985, L501.5200 ####[facility] [address] [place], [address] Lipid Profileon 03-16-2025 CHOL:HDL 6.32 Normal [facility] Comment on above: Performed By: #### L 500.4100, L500.4050, L501.2300, L100.0100 ####[facility] [address] [place], [address] Cholesterol [Mass/Vol] 168 mg/dL Normal <=200 [facility] Comment on above: Result Comment: Chol esterol level, Desirable <200 mg/dLBorderline high cholesterol 200-239 mg/dLHigh cholesterol >=240 mg/dLRecommendations of the NCEP Adult Treatment Panel for thefollowing risk-cutoff thresholds for the [place] [facility]. Performed By: #### L 500.4100, L500.4050, L501.2300, L100.0100 ####[facility] [address] [place], [address] Cholesterol in HDL [Mass/Vol] 27 mg/dL Low [facility] Comment on above: Result Comment: Margie onal Cholesterol Education Program (NCEP) guidelines:<40 mg/dL: Low HDL-cholesterol (major risk factor for CHD)>= 60 mg/dL: High HDL-cholesterol (negative risk factor forCHD)HDL-cholesterol is affected by a number of factors, e.g.smoking, exercise, hormones, sex and age. Performed By: #### L 500.4100, L500.4050, L501.2300, L100.0100 ####[facility] [address] [place], [address] Cholesterol in LDL [Mass/Vol] -17 mg/dL Normal [facility] Comment on above: Result Comment: Bord ciezpu=914-192 mg/dL Higher Fnvn=021 mg/dL or greater Performed By: #### L 500.4100, L500.4050, L501.2300, L100.0100 ####[facility] [address] [place], [address] Cholesterol in VLDL [Mass/Vol] 159 mg/dL High 5-40 [facility] Comment on above: Performed By: #### L 500.4100, L500.4050, L501.2300, L100.0100 ####[facility] [address] [place], [address] Triglyceride [Mass/Vol] 793 mg/dL High [facility] Comment on above: Result Comment: The drugs N-Acetylcysteine and Metamizole may falselydepress this assay.Normal range: <150 mg/dLBorderline High: 150-199 mg/dLHigh: 200-499 mg/dLVery High: >500 mg/dL Performed By: #### L 500.4100, L500.4050, L501.2300, L100.0100 ####[facility] [address] [place], [address] Phosphoruson 03-16-2025 Phosphate [Mass/Vol] 3.6 mg/dL Normal 2.7-4.5 [facility] Comment on above: Performed By: #### L 500.4100, L500.4050, L501.2300, L100.0100 ####[facility] [address] [place], [address] Vitamin B12on 03-16-2025 Cobalamin (Vitamin B12) [Mass/Vol] 709 pg/mL Normal 180-914 [facility] Comment on above: Performed By: #### L 503.0106 ####[facility] [address] [place], [address] Ammoniaon 03-15-2025 Ammonia (P) [Moles/Vol] 30.7 umol/L Normal 11-51 [facility] Comment on above: Performed By: #### L 503.5510 ####[facility] [address] [place], [address] Bedside Glucoseon 03-15-2025 FINGERSTICK GLU 204 mg/dL High 74-106 [facility] Comment on above: Result Comment: MARCELLA GEMENT OF PATIENT CARE PER NURSING PROTOCOL Performed By: #### L 501.080 ####[facility] [address] [place], [address] FINGERSTICK GLU 250 mg/dL High 74-106 [facility] Comment on above: Result Comment: MARCELLA GEMENT OF PATIENT CARE PER NURSING PROTOCOL Performed By: #### L 501.080 ####[facility] [address] [place], [address] Brain/Head without Contrasto n 03-15-2025 Brain/Head without Contrast Normal [facility] CBC W/Diff, Automatedon 07- Absolute Lymph 2.75 X10 3/uL Normal 0.83-4.51 [facility] Comment on above: Performed By: #### L 501.2450, L100.0100, L500.4050 ####[facility] [address] [place], [address] Absolute Neut 5.4 X10 3/uL Normal 2.0-7.7 [facility] Comment on above: Performed By: #### L 501.2450, L100.0100, L500.4050 ####[facility] [address] [place], [address] Basophils/100 WBC (Bld) 0.6 % Normal 0-1 [facility] Comment on above: Performed By: #### L 501.2450, L100.0100, L500.4050 ####[facility] [address] [place], [address] Eosinophils/100 WBC (Bld) 2.8 % Normal 0-5 [facility] Comment on above: Performed By: #### L 501.2450, L100.0100, L500.4050 ####[facility] [address] [place], [address] Erythrocyte distribution width (RBC) [Ratio] 13.7 % Normal 11.6-14.6 [facility] Comment on above: Performed By: #### L 501.2450, L100.0100, L500.4050 ####[facility] [address] [place], [address] Hematocrit (Bld) [Volume fraction] 39.5 % Normal 37-47 [facility] Comment on above: Performed By: #### L 501.2450, L100.0100, L500.4050 ####[facility] [address] [place], [address] Hemoglobin (Bld) [Mass/Vol] 13.0 g/dL Normal 12.0-15.0 [facility] Comment on above: Performed By: #### L 501.2450, L100.0100, L500.4050 ####[facility] [address] [place], [address] IG% 0.600 Normal 0.0-0.9 [facility] Comment on above: Result Comment: IG% - Immature Granulocytes (promyelocytes, myelocytes andmetamyelocytes) > 1% indicates that a LEFT SHIFT is Present. Performed By: #### L 501.2450, L100.0100, L500.4050 ####[facility] [address] [place], [address] Lymphocytes/100 WBC (Bld) 30.4 % Normal 19-41 [facility] Comment on above: Performed By: #### L 501.2450, L100.0100, L500.4050 ####[facility] [address] [place], [address] MCH (RBC) [Entitic mass] 29.0 pg Normal 27.0-32.0 [facility] Comment on above: Performed By: #### L 501.2450, L100.0100, L500.4050 ####[facility] [address] [place], [address] MCHC (RBC) [Mass/Vol] 32.9 g/dL Normal 32-36 [facility] Comment on above: Performed By: #### L 501.2450, L100.0100, L500.4050 ####[facility] [address] [place], [address] MCV (RBC) [Entitic vol] 88.0 fL Normal 81-99 [facility] Comment on above: Performed By: #### L 501.2450, L100.0100, L500.4050 ####[facility] [address] [place], [address] Monocytes/100 WBC (Bld) 6.4 % Normal 0-10 [facility] Comment on above: Performed By: #### L 501.2450, L100.0100, L500.4050 ####[facility] [address] [place], [address] Neutrophils/100 WBC (Bld) 59.2 % Normal 47-70 [facility] Comment on above: Performed By: #### L 501.2450, L100.0100, L500.4050 ####[facility] [address] [place], [address] Nucleated RBC (Bld) [#/Vol] 0 10*3/uL Normal 0-5 [facility] Comment on above: Performed By: #### L 501.2450, L100.0100, L500.4050 ####[facility] [address] [place], [address] Platelet mean volume (Bld) [Entitic vol] 9.5 fL Normal 6.2-12.0 [facility] Comment on above: Performed By: #### L 501.2450, L100.0100, L500.4050 ####[facility] [address] [place], [address] Platelets (Bld) [#/Vol] 234 10*3/uL Normal 150-450 [facility] Comment on above: Performed By: #### L 501.2450, L100.0100, L500.4050 ####[facility] [address] [place], [address] RBC (Bld) [#/Vol] 4.49 10*6/uL Normal 4.2-5.4 [facility] Comment on above: Performed By: #### L 501.2450, L100.0100, L500.4050 ####[facility] [address] [place], [address] RDW SD 43.7 fl Normal 35.1-43.9 [facility] Comment on above: Performed By: #### L 501.2450, L100.0100, L500.4050 ####[facility] [address] [place], [address] WBC (Bld) [#/Vol] 9.1 10*3/uL Normal 4.4-11.0 [facility] Comment on above: Performed By: #### L 501.2450, L100.0100, L500.4050 ####[facility] [address] [place], [address] Comprehensive Metabolic [facility] 03-15-2025 Albumin [Mass/Vol] 3.5 g/dL Normal 3.4-4.8 [facility] Comment on above: Performed By: #### L 501.2450, L100.0100, L500.4050 ####[facility] [address] [place], [address] Albumin/Globulin [Mass ratio] 1.1 {ratio} Normal 0.9-2.4 [facility] Comment on above: Performed By: #### L 501.2450, L100.0100, L500.4050 ####[facility] [address] [place], [address] ALK PHOS 117 U/L High 35-104 [facility] Comment on above: Performed By: #### L 501.2450, L100.0100, L500.4050 ####[facility] [address] [place], [address] ALT [Catalytic activity/Vol] 41 U/L High <=34 [facility] Comment on above: Performed By: #### L 501.2450, L100.0100, L500.4050 ####[facility] [address] [place], [address] AST [Catalytic activity/Vol] 60 U/L High <=31 [facility] Comment on above: Result Comment: Hemo lysis present, Results??could be affected.?? Performed By: #### L 501.2450, L100.0100, L500.4050 ####[facility] [address] [place], [address] Bilirubin [Mass/Vol] 0.25 mg/dL Normal 0.00-1.30 [facility] Comment on above: Performed By: #### L 501.2450, L100.0100, L500.4050 ####[facility] [address] [place], [address] BUN/CRE 22.8 RATIO High 10-20 [facility] Comment on above: Performed By: #### L 501.2450, L100.0100, L500.4050 ####[facility] [address] [place], [address] Calcium [Mass/Vol] 8.6 mg/dL Normal 7.6-11.0 [facility] Comment on above: Performed By: #### L 501.2450, L100.0100, L500.4050 ####[facility] [address] [place], [address] Chloride [Moles/Vol] 101 mmol/L Normal 98-108 [facility] Comment on above: Performed By: #### L 501.2450, L100.0100, L500.4050 ####[facility] [address] [place], [address] CO2 [Moles/Vol] 23.9 mmol/L Normal 21.0-32.0 [facility] Comment on above: Performed By: #### L 501.2450, L100.0100, L500.4050 ####[facility] [address] [place], [address] Creatinine [Mass/Vol] 0.64 mg/dL Low 0.70-1.20 [facility] Comment on above: Performed By: #### L 501.2450, L100.0100, L500.4050 ####[facility] [address] [place], [address] ECRCL 87.16 ml/min Normal 50-250 [facility] Comment on above: Performed By: #### L 501.2450, L100.0100, L500.4050 ####[facility] [address] [place], [address] GAP 12 Normal 5-15 [facility] Comment on above: Performed By: #### L 501.2450, L100.0100, L500.4050 ####[facility] [address] [place], [address] GFR/1.73 sq M.predicted among non-blacks MDRD (S/P/Bld) [Vol rate/Area] 97 mL/min/{1.73_m2} Normal >60 [facility] Comment on above: Result Comment: mL/m in/1.73m2 CKD-EPI Creatinine Equation (2020) Performed By: #### L 501.2450, L100.0100, L500.4050 ####[facility] [address] [place], [address] Globulin (S) [Mass/Vol] 3.1 g/dL Normal 2.2-4.2 [facility] Comment on above: Performed By: #### L 501.2450, L100.0100, L500.4050 ####[facility] [address] [place], [address] Glucose [Mass/Vol] 239 mg/dL High 70-99 [facility] Comment on above: Performed By: #### L 501.2450, L100.0100, L500.4050 ####[facility] [address] [place], [address] Potassium [Moles/Vol] 3.9 mmol/L Normal 3.3-5.1 [facility] Comment on above: Result Comment: Hemo lysis present, Results??could be affected.?? Performed By: #### L 501.2450, L100.0100, L500.4050 ####[facility] [address] [place], [address] Sodium [Moles/Vol] 137 mmol/L Normal 133-145 [facility] Comment on above: Performed By: #### L 501.2450, L100.0100, L500.4050 ####[facility] [address] [place], [address] T PROT 6.6 g/dL Normal 5.9-8.4 [facility] Comment on above: Performed By: #### L 501.2450, L100.0100, L500.4050 ####[facility] [address] [place], [address] Urea nitrogen [Mass/Vol] 15 mg/dL Normal 4-19 [facility] Comment on above: Performed By: #### L 501.2450, L100.0100, L500.4050 ####[facility] [address] [place], [address] Emergency Department Summary on 03-15-2025 Emergency Department Summary Normal [facility] H AND P Exam - Hospitaliston 03-15-2025 H&P Exam - Hospitalist Normal [facility] Hemoglobin A1con 03-15-2025 HbA1c (Bld) [Mass fraction] 11.7 % High <=5.6 [facility] Comment on above: Result Comment: Norm al < 5.7 % Prediabetic 5.7 - 6.4 % Diabetic >or= 6.5 % Please note range changes. Performed By: #### L 501.9520, L506.0200, L501.9985, L501.5200 ####[facility] [address] [place], [address] Lipaseon 03-15-2025 Lipase [Catalytic activity/Vol] 33 U/L Normal 13-75 [facility] Comment on above: Result Comment: Sherri martinez note:LIPASE revised reference range effective 22.New Lipase methodology. Expected to produce lower valuesthan the previous assay method.NEW Reference Range: 13 - 75 U/L Performed By: #### L 501.2450, L100.0100, L500.4050 ####[facility] [address] [place], [address] Magnesiumon 03-15-2025 Magnesium [Mass/Vol] 1.8 mg/dL Normal 1.5-2.2 [facility] Comment on above: Performed By: #### L 501.9520, L506.0200, L501.9985, L501.5200 ####[facility] [address] [place], [address] Thyroid Stim Hormone (TSH)on 03-15-2025 TSH 1.540 uIU/mL Normal 0.300-4.200 [facility] Comment on above: Performed By: #### L 501.9520, L506.0200, L501.9985, L501.5200 ####[facility] [address] [place], [address] Urinalysis, Completeon 03-15 BACTERIA 2+ /hpf Normal None Seen [facility] Comment on above: Order Comment: COLLE CTOR TO SPECIFY Performed By: #### L 400.0001 ####[facility] [address] [place], [address] EPI,SQUAMOUS 5-10 SEEN Normal 5-10 [facility] Comment on above: Order Comment: COLLE CTOR TO SPECIFY Performed By: #### L 400.0001 ####[facility] [address] [facility] [address] WBC 10-25 SEEN Normal 0-5 [facility] Comment on above: Order Comment: COLLE CTOR TO SPECIFY Performed By: #### L 400.0001 ####[facility] [address] [facility] [address] Mucus Ql (Urine sed) 0 SEEN Normal [facility] Comment on above: Order Comment: COLLE CTOR TO SPECIFY Performed By: #### L 400.0001 ####[facility] [address] [facility] [address] RBC 0 SEEN Normal 0-5 [facility] Comment on above: Order Comment: COLLE CTOR TO SPECIFY Performed By: #### L 400.0001 ####[facility] [address] [place] [address] Urine Drug Screen (VISTA)on 03-15-2025 AMPHETAMINES Normal <1000 ng/mL [facility] Comment on above: Result Comment: BOB ENT DISCHARGED. SPECIMEN NOT RECEIVED. Performed By: #### L 505.5000 ####[facility] [address] [facility] [address] BARBITIURATES Normal < 200 ng/mL [facility] Comment on above: Result Comment: BOB ENT DISCHARGED. SPECIMEN NOT RECEIVED. Performed By: #### L 505.5000 ####[facility] [address] [place] [address] BENZODIAZIPINE Normal < 200 ng/mL [facility] Comment on above: Result Comment: BOB ENT DISCHARGED. SPECIMEN NOT RECEIVED. Performed By: #### L 505.5000 ####[facility] [address] [facility] [address] BUP Ur Drug Scr Normal < 200 ng/mL [facility] Comment on above: Result Comment: BOB ENT DISCHARGED. SPECIMEN NOT RECEIVED. Performed By: #### L 505.5000 ####[facility] [address] [place] [address] COCAINE Normal < 300 ng/mL [facility] Comment on above: Result Comment: BOB ENT DISCHARGED. SPECIMEN NOT RECEIVED. Performed By: #### L 505.5000 ####[facility] [address] [place] [id number] Fentanyl Normal [facility] Comment on above: Result Comment: BOB ENT DISCHARGED. SPECIMEN NOT RECEIVED. Performed By: #### L 505.5000 ####[facility] [address] [place] [address] METHADONE Normal < 300 ng/mL [facility] Comment on above: Result Comment: BOB ENT DISCHARGED. SPECIMEN NOT RECEIVED. Performed By: #### L 505.5000 ####[facility] [address] [place] [address] OPIATES Normal < 300 ng/mL [facility] Comment on above: Result Comment: BOB ENT DISCHARGED. SPECIMEN NOT RECEIVED. Performed By: #### L 505.5000 ####[facility] [address] [place] [address] OXYCODONE Normal < 100 ng/mL [facility] Comment on above: Result Comment: BOB ENT DISCHARGED. SPECIMEN NOT RECEIVED. Performed By: #### L 505.5000 ####[facility] [address] [place] [address] PCP Normal < 25 ng/mL [facility] Comment on above: Result Comment: BOB ENT DISCHARGED. SPECIMEN NOT RECEIVED. Performed By: #### L 505.5000 ####[facility] [address] [place] [address] THC Normal < 50 ng/mL [facility] Comment on above: Result Comment: BOB ENT DISCHARGED. SPECIMEN NOT RECEIVED. Performed By: #### L 505.5000 ####[facility] [address] [place], [address] Venous Blood Gason 5 Blood Gas Type REJI Normal [facility] Comment on above: Performed By: #### L 9000.0810 ####[facility] [address] [place], [address] CO2 [Moles/Vol] 32 mmol/L Normal 23-33 [facility] Comment on above: Performed By: #### L 9000.0810 ####[facility] [address] [place], [address] HCO3 (Bld) [Moles/Vol] 30 mmol/L High 22-26 [facility] Comment on above: Performed By: #### L 9000.0810 ####[facility] [address] [place], [address] O2 Delivery Dev Not entered Normal [facility] Comment on above: Performed By: #### L 9000.0810 ####[facility] [address] [place], [address] SITE Not entered Normal [facility] Comment on above: Performed By: #### L 9000.0810 ####[facility] [address] [place], [address] VBG BE 6 mmol/L High -1.0-3.5 [facility] Comment on above: Performed By: #### L 9000.0810 ####[facility] [address] [place], [address] VBG pCO2 48.2 mmHg Normal 41-51 [facility] Comment on above: Performed By: #### L 9000.0810 ####[facility] [address] [place], [address] VBG pH 7.41 Normal 7.32-7.42 [facility] Comment on above: Performed By: #### L 9000.0810 ####[facility] [address] [place], [address] VBG PO2 58 mmHg High 25-40 [facility] Comment on above: Performed By: #### L 9000.0810 ####[facility] [address] [place], [address] VBG SO2 89 High 50-70 [facility] Comment on above: Performed By: #### L 9000.0810 ####[facility] [address] [place], [address] MR/BMS.BPon 03-11-2025 MR/BMS.BP Normal [facility] Extremity Lower without Cont raon 02-09-2025 Extremity Lower without Contra Normal [facility] CBC W/Diff, Automatedon Absolute Lymph 2.35 X10 3/uL Normal 0.83-4.51 [facility] Comment on above: Performed By: #### L 501.39674, L501.5200, L506.0400, L500.4050, L100.0100, L501.1400, L501.2450, L101.9900, L501.6710, L501.9520 ####[facility] [address] [place], [address] Absolute Neut 6.7 X10 3/uL Normal 2.0-7.7 [facility] Comment on above: Performed By: #### L 501.01754, L501.5200, L506.0400, L500.4050, L100.0100, L501.1400, L501.2450, L101.9900, L501.6710, L501.9520 ####[facility] [address] [place], [address] Basophils/100 WBC (Bld) 0.6 % Normal 0-1 [facility] Comment on above: Performed By: #### L 501.13017, L501.5200, L506.0400, L500.4050, L100.0100, L501.1400, L501.2450, L101.9900, L501.6710, L501.9520 ####[facility] [address] [place], [address] Eosinophils/100 WBC (Bld) 1.0 % Normal 0-5 [facility] Comment on above: Performed By: #### L 501.27059, L501.5200, L506.0400, L500.4050, L100.0100, L501.1400, L501.2450, L101.9900, L501.6710, L501.9520 ####[facility] [address] [place], [place], [phone] Erythrocyte distribution width (RBC) [Ratio] 13.2 % Normal 11.6-14.6 [facility] Comment on above: Performed By: #### L 501.03983, L501.5200, L506.0400, L500.4050, L100.0100, L501.1400, L501.2450, L101.9900, L501.6710, L501.9520 ####[facility] [address] [place], [address] Hematocrit (Bld) [Volume fraction] 43.4 % Normal 37-47 [facility] Comment on above: Performed By: #### L 501.45023, L501.5200, L506.0400, L500.4050, L100.0100, L501.1400, L501.2450, L101.9900, L501.6710, L501.9520 ####[facility] [address] [place], [address] Hemoglobin (Bld) [Mass/Vol] 14.5 g/dL Normal 12.0-15.0 [facility] Comment on above: Performed By: #### L 501.79542, L501.5200, L506.0400, L500.4050, L100.0100, L501.1400, L501.2450, L101.9900, L501.6710, L501.9520 ####[facility] [address] [place], [address] IG% 0.500 Normal 0.0-0.9 [facility] Comment on above: Result Comment: IG% - Immature Granulocytes (promyelocytes, myelocytes andmetamyelocytes) > 1% indicates that a LEFT SHIFT is Present. Performed By: #### L 501.99801, L501.5200, L506.0400, L500.4050, L100.0100, L501.1400, L501.2450, L101.9900, L501.6710, L501.9520 ####[facility] [address] [place], [address] Lymphocytes/100 WBC (Bld) 24.2 % Normal 19-41 [facility] Comment on above: Performed By: #### L 501.36315, L501.5200, L506.0400, L500.4050, L100.0100, L501.1400, L501.2450, L101.9900, L501.6710, L501.9520 ####[facility] [address] [place], [address] MCH (RBC) [Entitic mass] 29.4 pg Normal 27.0-32.0 [facility] Comment on above: Performed By: #### L 501.61504, L501.5200, L506.0400, L500.4050, L100.0100, L501.1400, L501.2450, L101.9900, L501.6710, L501.9520 ####[facility] [address] [place], [address] MCHC (RBC) [Mass/Vol] 33.4 g/dL Normal 32-36 [facility] Comment on above: Performed By: #### L 501.94482, L501.5200, L506.0400, L500.4050, L100.0100, L501.1400, L501.2450, L101.9900, L501.6710, L501.9520 ####[facility] [address] [place], [address] MCV (RBC) [Entitic vol] 87.9 fL Normal 81-99 [facility] Comment on above: Performed By: #### L 501.87002, L501.5200, L506.0400, L500.4050, L100.0100, L501.1400, L501.2450, L101.9900, L501.6710, L501.9520 ####[facility] [address] [place], [address] Monocytes/100 WBC (Bld) 5.1 % Normal 0-10 [facility] Comment on above: Performed By: #### L 501.46088, L501.5200, L506.0400, L500.4050, L100.0100, L501.1400, L501.2450, L101.9900, L501.6710, L501.9520 ####[facility] [address] [place], [address] Neutrophils/100 WBC (Bld) 68.6 % Normal 47-70 [facility] Comment on above: Performed By: #### L 501.91572, L501.5200, L506.0400, L500.4050, L100.0100, L501.1400, L501.2450, L101.9900, L501.6710, L501.9520 ####[facility] [address] [place], [address] Nucleated RBC (Bld) [#/Vol] 0 10*3/uL Normal 0-5 [facility] Comment on above: Performed By: #### L 501.40203, L501.5200, L506.0400, L500.4050, L100.0100, L501.1400, L501.2450, L101.9900, L501.6710, L501.9520 ####[facility] [address] [place], [place], [phone] Platelet mean volume (Bld) [Entitic vol] 9.6 fL Normal 6.2-12.0 [facility] Comment on above: Performed By: #### L 501.53816, L501.5200, L506.0400, L500.4050, L100.0100, L501.1400, L501.2450, L101.9900, L501.6710, L501.9520 ####[facility] [address] [place], [address](203) Platelets (Bld) [#/Vol] 251 10*3/uL Normal 150-450 [facility] Comment on above: Performed By: #### L 501.26215, L501.5200, L506.0400, L500.4050, L100.0100, L501.1400, L501.2450, L101.9900, L501.6710, L501.9520 ####[facility] [address] [place], [address] RBC (Bld) [#/Vol] 4.94 10*6/uL Normal 4.2-5.4 [facility] Comment on above: Performed By: #### L 501.76299, L501.5200, L506.0400, L500.4050, L100.0100, L501.1400, L501.2450, L101.9900, L501.6710, L501.9520 ####[facility] [address] [place], [place], [address] RDW SD 41.8 fl Normal 35.1-43.9 [facility] Comment on above: Performed By: #### L 501.61331, L501.5200, L506.0400, L500.4050, L100.0100, L501.1400, L501.2450, L101.9900, L501.6710, L501.9520 ####[facility] [address] [place], [place], [phone] WBC (Bld) [#/Vol] 9.7 10*3/uL Normal 4.4-11.0 [facility] Comment on above: Performed By: #### L 501.47045, L501.5200, L506.0400, L500.4050, L100.0100, L501.1400, L501.2450, L101.9900, L501.6710, L501.9520 ####[facility] [address] [place], [place], [id number] CRPon 02-04-2025 C-REACTIVE PROT 11.80 mg/L High 0.0-3.0 [facility] Comment on above: Performed By: #### L 501.43350, L501.5200, L506.0400, L500.4050, L100.0100, L501.1400, L501.2450, L101.9900, L501.6710, L501.9520 ####[facility] [address] [place], [place], [phone] Comprehensive Metabolic Prof ilon 02-04-2025 Albumin [Mass/Vol] 4.3 g/dL Normal 3.4-4.8 [facility] Comment on above: Performed By: #### L 501.72001, L501.5200, L506.0400, L500.4050, L100.0100, L501.1400, L501.2450, L101.9900, L501.6710, L501.9520 ####[facility] [address] [place], [place], [phone] Albumin/Globulin [Mass ratio] 1.4 {ratio} Normal 0.9-2.4 [facility] Comment on above: Performed By: #### L 501.67933, L501.5200, L506.0400, L500.4050, L100.0100, L501.1400, L501.2450, L101.9900, L501.6710, L501.9520 ####[facility] [address] [place], [place], [phone] ALK PHOS 112 U/L High 35-104 [facility] Comment on above: Performed By: #### L 501.18013, L501.5200, L506.0400, L500.4050, L100.0100, L501.1400, L501.2450, L101.9900, L501.6710, L501.9520 ####[facility] [address] [place], [place], [address] ALT [Catalytic activity/Vol] 80 U/L High <=34 [facility] Comment on above: Performed By: #### L 501.71724, L501.5200, L506.0400, L500.4050, L100.0100, L501.1400, L501.2450, L101.9900, L501.6710, L501.9520 ####[facility] [address] [place], [place], [phone] AST [Catalytic activity/Vol] 60 U/L High <=31 [facility] Comment on above: Performed By: #### L 501.51257, L501.5200, L506.0400, L500.4050, L100.0100, L501.1400, L501.2450, L101.9900, L501.6710, L501.9520 ####[facility] [address] [place], [place], [address] Bilirubin [Mass/Vol] 0.40 mg/dL Normal 0.00-1.30 [facility] Comment on above: Performed By: #### L 501.92205, L501.5200, L506.0400, L500.4050, L100.0100, L501.1400, L501.2450, L101.9900, L501.6710, L501.9520 ####[facility] [address] [place], [address] BUN/CRE 13.8 RATIO Normal 10-20 [facility] Comment on above: Performed By: #### L 501.20405, L501.5200, L506.0400, L500.4050, L100.0100, L501.1400, L501.2450, L101.9900, L501.6710, L501.9520 ####[facility] [address] [place], [place], [phone](896) Calcium [Mass/Vol] 9.5 mg/dL Normal 7.6-11.0 [facility] Comment on above: Performed By: #### L 501.39204, L501.5200, L506.0400, L500.4050, L100.0100, L501.1400, L501.2450, L101.9900, L501.6710, L501.9520 ####[facility] [address] [place], [place], [phone] Chloride [Moles/Vol] 101 mmol/L Normal 98-108 [facility] Comment on above: Performed By: #### L 501.60625, L501.5200, L506.0400, L500.4050, L100.0100, L501.1400, L501.2450, L101.9900, L501.6710, L501.9520 ####[facility] [address] [place], [place], [phone](593) CO2 [Moles/Vol] 24.5 mmol/L Normal 21.0-32.0 [facility] Comment on above: Performed By: #### L 501.45341, L501.5200, L506.0400, L500.4050, L100.0100, L501.1400, L501.2450, L101.9900, L501.6710, L501.9520 ####[facility] [address] [place], [place], [address] Creatinine [Mass/Vol] 0.78 mg/dL Normal 0.70-1.20 [facility] Comment on above: Performed By: #### L 501.21384, L501.5200, L506.0400, L500.4050, L100.0100, L501.1400, L501.2450, L101.9900, L501.6710, L501.9520 ####[facility] [address] [place], [place], [id number] GAP 16 High 5-15 [facility] Comment on above: Performed By: #### L 501.68901, L501.5200, L506.0400, L500.4050, L100.0100, L501.1400, L501.2450, L101.9900, L501.6710, L501.9520 ####[facility] [address] [place], [place], [id number] GFR/1.73 sq M.predicted among non-blacks MDRD (S/P/Bld) [Vol rate/Area] 84 mL/min/{1.73_m2} Normal >60 [facility] Comment on above: Result Comment: mL/m in/1.73m2 CKD-EPI Creatinine Equation (2020) Performed By: #### L 501.93666, L501.5200, L506.0400, L500.4050, L100.0100, L501.1400, L501.2450, L101.9900, L501.6710, L501.9520 ####[facility] [address] [place], [address] Globulin (S) [Mass/Vol] 3.1 g/dL Normal 2.2-4.2 [facility] Comment on above: Performed By: #### L 501.76778, L501.5200, L506.0400, L500.4050, L100.0100, L501.1400, L501.2450, L101.9900, L501.6710, L501.9520 ####[facility] [address] [place], [address] Glucose [Mass/Vol] 247 mg/dL High 70-99 [facility] Comment on above: Performed By: #### L 501.76719, L501.5200, L506.0400, L500.4050, L100.0100, L501.1400, L501.2450, L101.9900, L501.6710, L501.9520 ####[facility] [address] [place], [address] Potassium [Moles/Vol] 4.6 mmol/L Normal 3.3-5.1 [facility] Comment on above: Performed By: #### L 501.31548, L501.5200, L506.0400, L500.4050, L100.0100, L501.1400, L501.2450, L101.9900, L501.6710, L501.9520 ####[facility] [address] [place], [address] Sodium [Moles/Vol] 141 mmol/L Normal 133-145 [facility] Comment on above: Performed By: #### L 501.96077, L501.5200, L506.0400, L500.4050, L100.0100, L501.1400, L501.2450, L101.9900, L501.6710, L501.9520 ####[facility] [address] [place], [place], [id number] T PROT 7.4 g/dL Normal 5.9-8.4 [facility] Comment on above: Performed By: #### L 501.62363, L501.5200, L506.0400, L500.4050, L100.0100, L501.1400, L501.2450, L101.9900, L501.6710, L501.9520 ####[facility] [address] [place], [place], [id number] Urea nitrogen [Mass/Vol] 11 mg/dL Normal 4-19 [facility] Comment on above: Performed By: #### L 501.40457, L501.5200, L506.0400, L500.4050, L100.0100, L501.1400, L501.2450, L101.9900, L501.6710, L501.9520 ####[facility] [address] [place], [place], [address] Erythrocyte Sed Rateon 02-04 SED RATE 7 mm/hr Normal 0-30 [facility] Comment on above: Performed By: #### L 501.31930, L501.5200, L506.0400, L500.4050, L100.0100, L501.1400, L501.2450, L101.9900, L501.6710, L501.9520 ####[facility] [address] [place], [place], [address] Free T3on 0 Free T3 [Mass/Vol] 2.4 pg/mL Normal 2.18-3.98 [facility] Comment on above: Performed By: #### L 501.96285, L501.5200, L506.0400, L500.4050, L100.0100, L501.1400, L501.2450, L101.9900, L501.6710, L501.9520 ####[facility] [address] [place], [place], [id number] Lipaseon 02-04-2025 Lipase [Catalytic activity/Vol] 42 U/L Normal 13-75 [facility] Comment on above: Result Comment: Sherri martinez note:LIPASE revised reference range effective 22.New Lipase methodology. Expected to produce lower valuesthan the previous assay method.NEW Reference Range: 13 - 75 U/L Performed By: #### L 501.68240, L501.5200, L506.0400, L500.4050, L100.0100, L501.1400, L501.2450, L101.9900, L501.6710, L501.9520 ####[facility] [address] [place], [place], [id number] Magnesiumon 02-04-2025 Magnesium [Mass/Vol] 1.8 mg/dL Normal 1.5-2.2 [facility] Comment on above: Performed By: #### L 501.83717, L501.5200, L506.0400, L500.4050, L100.0100, L501.1400, L501.2450, L101.9900, L501.6710, L501.9520 ####[facility] [address] [place], [place], [address] T4 Free Directon 02-04-2025 T4 FREE DIRECT 1.20 ng/dL Normal 0.76-1.46 [facility] Comment on above: Performed By: #### L 501.17405, L501.5200, L506.0400, L500.4050, L100.0100, L501.1400, L501.2450, L101.9900, L501.6710, L501.9520 ####[facility] [address] [place], [place], [id number] Thyroid Stim Hormone (TSH)on 02-04-2025 TSH 0.755 uIU/mL Normal 0.300-4.200 [facility] Comment on above: Performed By: #### L 501.26863, L501.5200, L506.0400, L500.4050, L100.0100, L501.1400, L501.2450, L101.9900, L501.6710, L501.9520 ####[facility] [address] [place], [address] Uric Acidon 02-04-2025 URIC 6.8 mg/dL High 2.6-6.0 [facility] Comment on above: Result Comment: The drugs N-Acetylcysteine and Metamizole may falselydepress this assay. Performed By: #### L 501.26382, L501.5200, L506.0400, L500.4050, L100.0100, L501.1400, L501.2450, L101.9900, L501.6710, L501.9520 ####[facility] [address] [place], [address] MR/BMS.BPon 01-07-2025 MR/BMS.BP Normal [facility] Basic Metabolic Profile (BMP )on 01-03-2025 BUN/CRE 18.4 RATIO Normal 10-20 [facility] Comment on above: Performed By: #### L 500.2500, L506.1001 ####[facility] [address] [place], [address] Calcium [Mass/Vol] 8.7 mg/dL Normal 7.6-11.0 [facility] Comment on above: Performed By: #### L 500.2500, L506.1001 ####[facility] [address] [place], [address] Chloride [Moles/Vol] 100 mmol/L Normal 98-108 [facility] Comment on above: Performed By: #### L 500.2500, L506.1001 ####[facility] [address] [place], [address] CO2 [Moles/Vol] 25.8 mmol/L Normal 21.0-32.0 [facility] Comment on above: Performed By: #### L 500.2500, L506.1001 ####[facility] [address] [place], [address] Creatinine [Mass/Vol] 0.71 mg/dL Normal 0.70-1.20 [facility] Comment on above: Performed By: #### L 500.2500, L506.1001 ####[facility] [address] [place], [address] GAP 12 Normal 5-15 [facility] Comment on above: Performed By: #### L 500.2500, L506.1001 ####[facility] [address] [place], [address] GFR/1.73 sq M.predicted among non-blacks MDRD (S/P/Bld) [Vol rate/Area] 94 mL/min/{1.73_m2} Normal >60 [facility] Comment on above: Result Comment: mL/m in/1.73m2 CKD-EPI Creatinine Equation (2020) Performed By: #### L 500.2500, L506.1001 ####[facility] [address] [place], [address] Glucose [Mass/Vol] 293 mg/dL High 70-99 [facility] Comment on above: Performed By: #### L 500.2500, L506.1001 ####[facility] [address] [place], [address] Potassium [Moles/Vol] 4.8 mmol/L Normal 3.3-5.1 [facility] Comment on above: Performed By: #### L 500.2500, L506.1001 ####[facility] [address] [place], [address] Sodium [Moles/Vol] 138 mmol/L Normal 133-145 [facility] Comment on above: Performed By: #### L 500.2500, L506.1001 ####[facility] [address] [place], [address] Urea nitrogen [Mass/Vol] 13 mg/dL Normal 4-19 [facility] Comment on above: Performed By: #### L 500.2500, L506.1001 ####[facility] [address] [place], [address] Vitamin D,25 Hydroxyon 01-03 Vitamin D 25-OH 32.3 ng/mL Normal 30-100 [facility] Comment on above: Result Comment: Ashley min D StatusDeficiency: <20 ng/mL (50nmol/L)Insufficiency: 20-30 ng/mL (50-75 nmol/L)Sufficiency: 30-100 ng/mL (75-250 nmol/L)Toxicity: >100 ng/mL (>250 nmol/L) Performed By: #### L 500.2500, L506.1001 ####[facility] [address] [place], [address] Echo Complete W/ Contraston 11-29-2024 Echo Complete W/ Contrast Normal [facility] Brain/Head without Contrasto n 11-20-2024 Brain/Head without Contrast Normal [facility] Emergency Department Summary on 11-20-2024 Emergency Department Summary Normal [facility] Lumbar Spine 2 or 3 Viewson 11-20-2024 Lumbar Spine 2 or 3 Views Normal [facility] Spine Cervical without Contr ason 11-20-2024 Spine Cervical without Contras Normal [facility] Thoracic Spine 3 Viewson Thoracic Spine 3 Views Normal [facility] Endocrinology Visit Reporton 11-19-2024 Endocrinology Visit Report Normal [facility] Emergency Department Summary on 10-15-2024 Emergency Department Summary Normal [facility] Emergency Department Summary on 10-12-2024 Emergency Department Summary Normal [facility] Endocrinology Visit Reporton 10-08-2024 Endocrinology Visit Report Normal [facility] MR/BMS.BPon 09-03-2024 MR/BMS.BP Normal [facility] Bedside Glucoseon 07-28-2024 FINGERSTICK GLU 200 mg/dL High 74-106 [facility] Comment on above: Result Comment: MARCELLA GEMENT OF PATIENT CARE PER NURSING PROTOCOL Performed By: #### L 501.080 ####[facility] [address] [place], [address] FINGERSTICK GLU 202 mg/dL High 74-106 [facility] Comment on above: Result Comment: MARCELLA GEMENT OF PATIENT CARE PER NURSING PROTOCOL Performed By: #### L 501.080 ####[facility] [address] [place], [address] FINGERSTICK GLU 233 mg/dL High 74-106 [facility] Comment on above: Result Comment: MARCELLA GEMENT OF PATIENT CARE PER NURSING PROTOCOL Performed By: #### L 501.080 ####[facility] [address] [place], [address] Spine Lumbar without Contras ton 07-28-2024 Spine Lumbar without Contrast Normal [facility] 12 Lead EKGon 07-27-2024 12 Lead EKG Normal [facility] Basic Metabolic Profile (BMP )on 07-27-2024 BUN/CRE 14.0 RATIO Normal 10-20 [facility] Comment on above: Performed By: #### L 100.0100, L500.2500 ####[facility] [address] [place], [address] CA,Total 8.9 mg/dL Normal 8.5-10.1 [facility] Comment on above: Performed By: #### L 100.0100, L500.2500 ####[facility] [address] [place], [address] Chloride [Moles/Vol] 99 mmol/L Normal 98-107 [facility] Comment on above: Performed By: #### L 100.0100, L500.2500 ####[facility] [address] [place], [address] CO2 [Moles/Vol] 30.0 mmol/L Normal 21.0-32.0 [facility] Comment on above: Performed By: #### L 100.0100, L500.2500 ####[facility] [address] [place], [address] Creatinine [Mass/Vol] 1.00 mg/dL Normal 0.55-1.02 [facility] Comment on above: Result Comment: The validity of the calculated GFR GFRAA in patients over70 years has not been determined. Clinical correlation isessential. Performed By: #### L 100.0100, L500.2500 ####[facility] [address] [place], [address] ECRCL 69.70 ml/min Normal [facility] Comment on above: Performed By: #### L 100.0100, L500.2500 ####[facility] [address] [place], [address] EST GFR - AA 71 mL/min Normal >60 [facility] Comment on above: Result Comment: Afri can Angolan GFR Calc Performed By: #### L 100.0100, L500.2500 ####[facility] [address] [place], [address] GAP 7 Normal 5-15 [facility] Comment on above: Performed By: #### L 100.0100, L500.2500 ####[facility] [address] [place], [address] GFR/1.73 sq M.predicted among non-blacks MDRD (S/P/Bld) [Vol rate/Area] 59 mL/min/{1.73_m2} Low >60 [facility] Comment on above: Result Comment: Non- GFR Calc Performed By: #### L 100.0100, L500.2500 ####[facility] [address] [place], [address] Glucose [Mass/Vol] 421 mg/dL High 74-106 [facility] Comment on above: Result Comment: Gluc ose result greater than or equal to 200 mg/dLsuggests DIABETES MELLITUS per A.D.A. criteria. Performed By: #### L 100.0100, L500.2500 ####[facility] [address] [place], [address] Potassium [Moles/Vol] 4.6 mmol/L Normal 3.5-5.1 [facility] Comment on above: Result Comment: Slig ht Hemolysis, Result may be falsely increased. Performed By: #### L 100.0100, L500.2500 ####[facility] [address] [place], [address] Sodium [Moles/Vol] 135 mmol/L Low 136-145 [facility] Comment on above: Performed By: #### L 100.0100, L500.2500 ####[facility] [address] [place], [address] Urea nitrogen [Mass/Vol] 14 mg/dL Normal 7-18 [facility] Comment on above: Performed By: #### L 100.0100, L500.2500 ####[facility] [address] [place], [address] Bedside Glucoseon 07-27-2024 FINGERSTICK GLU 290 mg/dL High 74-106 [facility] Comment on above: Result Comment: MARCELLA GEMENT OF PATIENT CARE PER NURSING PROTOCOL Performed By: #### L 501.080 ####[facility] [address] [place], [address] FINGERSTICK GLU 360 mg/dL High -106 [facility] Comment on above: Result Comment: MARCELLA GEMENT OF PATIENT CARE PER NURSING PROTOCOL Performed By: #### L 501.080 ####[facility] [address] [place], [address] CBC W/Diff, Automatedon 11-2 Absolute Lymph 2.09 X10 3/uL Normal 0.83-4.51 [facility] Comment on above: Performed By: #### L 100.0100, L500.2500 ####[facility] [address] [place], [address] Absolute Neut 4.9 X10 3/uL Normal 2.0-7.7 [facility] Comment on above: Performed By: #### L 100.0100, L500.2500 ####[facility] [address] [place], [address] Basophils/100 WBC (Bld) 0.4 % Normal 0-1 [facility] Comment on above: Performed By: #### L 100.0100, L500.2500 ####[facility] [address] [place], [address] Eosinophils/100 WBC (Bld) 1.8 % Normal 0-5 [facility] Comment on above: Performed By: #### L 100.0100, L500.2500 ####[facility] [address] [place], [address] Erythrocyte distribution width (RBC) [Ratio] 13.5 % Normal 11.6-14.6 [facility] Comment on above: Performed By: #### L 100.0100, L500.2500 ####[facility] [address] [place], [address] Hematocrit (Bld) [Volume fraction] 44.6 % Normal 37-47 [facility] Comment on above: Performed By: #### L 100.0100, L500.2500 ####[facility] [address] [place], [address] Hemoglobin (Bld) [Mass/Vol] 14.2 g/dL Normal 12.0-15.0 [facility] Comment on above: Performed By: #### L 100.0100, L500.2500 ####[facility] [address] [place], [address] IG% 0.500 Normal 0.0-0.9 [facility] Comment on above: Result Comment: IG% - Immature Granulocytes (promyelocytes, myelocytes andmetamyelocytes) > 1% indicates that a LEFT SHIFT is Present. Performed By: #### L 100.0100, L500.2500 ####[facility] [address] [place], [address] Lymphocytes/100 WBC (Bld) 27.5 % Normal 19-41 [facility] Comment on above: Performed By: #### L 100.0100, L500.2500 ####[facility] [address] [place], [address] MCH (RBC) [Entitic mass] 28.9 pg Normal 27.0-32.0 [facility] Comment on above: Performed By: #### L 100.0100, L500.2500 ####[facility] [address] [place], [address] MCHC (RBC) [Mass/Vol] 31.8 g/dL Low 32-36 [facility] Comment on above: Performed By: #### L 100.0100, L500.2500 ####[facility] [address] [place], [address] MCV (RBC) [Entitic vol] 90.7 fL Normal 81-99 [facility] Comment on above: Performed By: #### L 100.0100, L500.2500 ####[facility] [address] [place], [address] Monocytes/100 WBC (Bld) 5.5 % Normal 0-10 [facility] Comment on above: Performed By: #### L 100.0100, L500.2500 ####[facility] [address] [place], [address] Neutrophils/100 WBC (Bld) 64.3 % Normal 47-70 [facility] Comment on above: Performed By: #### L 100.0100, L500.2500 ####[facility] [address] [place], [address] Nucleated RBC (Bld) [#/Vol] 0 10*3/uL Normal 0-5 [facility] Comment on above: Performed By: #### L 100.0100, L500.2500 ####[facility] [address] [place], [address] Platelet mean volume (Bld) [Entitic vol] 9.3 fL Normal 6.2-12.0 [facility] Comment on above: Performed By: #### L 100.0100, L500.2500 ####[facility] [address] [place], [address] Platelets (Bld) [#/Vol] 234 10*3/uL Normal 150-450 [facility] Comment on above: Performed By: #### L 100.0100, L500.2500 ####[facility] [address] [place], [address] RBC (Bld) [#/Vol] 4.92 10*6/uL Normal 4.2-5.4 [facility] Comment on above: Performed By: #### L 100.0100, L500.2500 ####[facility] [address] [place], [address] RDW SD 44.1 fl High 35.1-43.9 [facility] Comment on above: Performed By: #### L 100.0100, L500.2500 ####[facility] [address] [place], [address] WBC (Bld) [#/Vol] 7.6 10*3/uL Normal 4.4-11.0 [facility] Comment on above: Performed By: #### L 100.0100, L500.2500 ####[facility] [address] [place], [address] CTA Chest W/WO Contraston CTA Chest W/WO Contrast Normal [facility] Chest PA and Lateralon 07-27 Chest PA and Lateral Normal [facility] Emergency Department Summary on 07-27-2024 Emergency Department Summary Normal [facility] H AND P Exam - Hospitaliston 07-27-2024 H&P Exam - Hospitalist Normal [facility] L501.4020on 07-27-2024 TROPONIN-I HS 5 pg/mL Normal 3.0-54.0 [facility] Comment on above: Order Comment: 'TROP ' Serial specimen #1, #2 or #3: 1 Result Comment: Sherri martinez Note: New Test Units and Gender Specific Reference Ranges. For more information see Policy Stat Procedure [place] High Sensitivity Troponin (TNIH) and attachments. Performed By: #### L 501.4020 ####[facility] [address] [place], [address] Miscellaneous Lab Procedureo n 07-19-2024 MISC LAB TEST Normal [facility] Comment on above: Order Comment: [id number] [...] UR Oxymorphone Negative 300 TESTING PERFORMED AT [facility]. ORIGINAL REPORT ON FILE IN LAB CONTAINS ADDITIONAL TEST SITE INFORMATION. Performed By: #### L 505.5000, , L801.1541 ####[facility] [address] [place], [address] Urinalysis, Routine (Dipstic k)on 07-13-2024 BILIRUBIN URINE Negative Normal Negative [facility] Comment on above: Order Comment: CLEAN CATCH Performed By: #### L 505.4999, , L801.1541 ####[facility] [address] [place], [address] Clarity (U) Clear Normal Clear [facility] Comment on above: Order Comment: CLEAN CATCH Performed By: #### L 505.4999, , L801.1541 ####[facility] [address] [place], [address] Color (U) Yellow Normal Yellow [facility] Comment on above: Order Comment: CLEAN CATCH Performed By: #### L 505.5000, , L801.1541 ####[facility] [address] [place], [address] GLUCOSE, UR Normal Normal Normal [facility] Comment on above: Order Comment: CLEAN CATCH Performed By: #### L 505.5000, , L801.1541 ####[facility] [address] [place], [address] KETONE UR Negative Normal Negative [facility] Comment on above: Order Comment: CLEAN CATCH Performed By: #### L 505.5000, , L801.1541 ####[facility] [address] [place], [address] LEUK ESTERASE 25 /ul Abnormal Negative [facility] Comment on above: Order Comment: CLEAN CATCH Performed By: #### L 505.5000, , L801.1541 ####[facility] [address] [place], [address] Nitrite Ql (U) Negative Normal Negative [facility] Comment on above: Order Comment: CLEAN CATCH Performed By: #### L 505.5000, , L801.1541 ####[facility] [address] [place], [address] OCCULT BLOOD-UR Negative Normal Negative [facility] Comment on above: Order Comment: CLEAN CATCH Performed By: #### L 505.5000, , L801.1541 ####[facility] [address] [place], [address] pH UR 6.0 Normal 5.0 - 8.0 [facility] Comment on above: Order Comment: CLEAN CATCH Performed By: #### L 505.5000, , L801.1541 ####[facility] [address] [place], [address] PROT DIPSTX Negative Normal Negative [facility] Comment on above: Order Comment: CLEAN CATCH Performed By: #### L 505.5000, , L801.1541 ####[facility] [address] [place], [address] SP.GR. DIPSTX 1.020 Normal 1.002-1.030 [facility] Comment on above: Order Comment: CLEAN CATCH Performed By: #### L 505.5000, , L801.1541 ####[facility] [address] [place], [address] UROBILI Normal Normal Normal [facility] Comment on above: Order Comment: CLEAN CATCH Performed By: #### L 505.5000, , L801.1541 ####[facility] [address] [place], [address] Urine Drug Screen (VISTA)on 07-13-2024 AMPHETAMINES Negative Normal <1000 ng/mL [facility] Comment on above: Order Comment: MEDTO X Performed By: #### L 505.5000, , L801.1541 ####[facility] [address] [place], [address] BARBITIURATES Negative Normal < 200 ng/mL [facility] Comment on above: Order Comment: MEDTO X Performed By: #### L 505.5000, , L801.1541 ####[facility] [address] [place], [address] BENZODIAZIPINE Negative Normal < 200 ng/mL [facility] Comment on above: Order Comment: MEDTO X Performed By: #### L 505.5000, , L801.1541 ####[facility] [address] [place], [address] COCAINE Negative Normal < 300 ng/mL [facility] Comment on above: Order Comment: MEDTO X Performed By: #### L 505.5000, , L801.1541 ####[facility] [address] [place], [address] ECSTACY Negative Normal < 500 ng/mL [facility] Comment on above: Order Comment: MEDTO X Performed By: #### L 505.5000, , L801.1541 ####[facility] [address] [place], [address] METHADONE Negative Normal < 300 ng/mL [facility] Comment on above: Order Comment: MEDTO X Performed By: #### L 505.5000, , L801.1541 ####[facility] [address] [place], [address] OPIATES Positive Abnormal < 300 ng/mL [facility] Comment on above: Order Comment: MEDTO X Performed By: #### L 505.5000, , L801.1541 ####[facility] [address] [place], [address] PCP Negative Normal < 25 ng/mL [facility] Comment on above: Order Comment: MEDTO X Performed By: #### L 505.5000, , L801.1541 ####[facility] [address] [place], [address] THC Negative Normal < 50 ng/mL [facility] Comment on above: Order Comment: MEDTO X Performed By: #### L 505.5000, , L801.1541 ####[facility] [address] [place], [place], [address] VISTA UDS PH 5 Normal [facility] Comment on above: Order Comment: MEDTO X Performed By: #### L 505.5000, , L801.1541 ####[facility] [address] [place], [address] Endocrinology Visit Reporton 06-06-2024 Endocrinology Visit Report Normal [facility] CBC W/Diff, Automatedon Absolute Lymph 1.84 X10 3/uL Normal 0.83-4.51 [facility] Comment on above: Performed By: #### L 503.6150, L100.0100, L500.4050, L503.6550, L501.9520, L506.1000, L503.0105, L506.0400 ####[facility] [address] [place], [address] Absolute Neut 4.0 X10 3/uL Normal 2.0-7.7 [facility] Comment on above: Performed By: #### L 503.6150, L100.0100, L500.4050, L503.6550, L501.9520, L506.1000, L503.0105, L506.0400 ####[facility] [address] [place], [address] Basophils/100 WBC (Bld) 0.6 % Normal 0-1 [facility] Comment on above: Performed By: #### L 503.6150, L100.0100, L500.4050, L503.6550, L501.9520, L506.1000, L503.0105, L506.0400 ####[facility] [address] [place], [address] Eosinophils/100 WBC (Bld) 2.7 % Normal 0-5 [facility] Comment on above: Performed By: #### L 503.6150, L100.0100, L500.4050, L503.6550, L501.9520, L506.1000, L503.0105, L506.0400 ####[facility] [address] [place], [address] Erythrocyte distribution width (RBC) [Ratio] 13.7 % Normal 11.6-14.6 [facility] Comment on above: Performed By: #### L 503.6150, L100.0100, L500.4050, L503.6550, L501.9520, L506.1000, L503.0105, L506.0400 ####[facility] [address] [place], [address] Hematocrit (Bld) [Volume fraction] 42.9 % Normal 37-47 [facility] Comment on above: Performed By: #### L 503.6150, L100.0100, L500.4050, L503.6550, L501.9520, L506.1000, L503.0105, L506.0400 ####[facility] [address] [place], [address] Hemoglobin (Bld) [Mass/Vol] 13.4 g/dL Normal 12.0-15.0 [facility] Comment on above: Performed By: #### L 503.6150, L100.0100, L500.4050, L503.6550, L501.9520, L506.1000, L503.0105, L506.0400 ####[facility] [address] [place], [address] IG% 0.500 Normal 0.0-0.9 [facility] Comment on above: Result Comment: IG% - Immature Granulocytes (promyelocytes, myelocytes andmetamyelocytes) > 1% indicates that a LEFT SHIFT is Present. Performed By: #### L 503.6150, L100.0100, L500.4050, L503.6550, L501.9520, L506.1000, L503.0105, L506.0400 ####[facility] [address] [place], [address] Lymphocytes/100 WBC (Bld) 27.8 % Normal 19-41 [facility] Comment on above: Performed By: #### L 503.6150, L100.0100, L500.4050, L503.6550, L501.9520, L506.1000, L503.0105, L506.0400 ####[facility] [address] [place], [address] MCH (RBC) [Entitic mass] 28.7 pg Normal 27.0-32.0 [facility] Comment on above: Performed By: #### L 503.6150, L100.0100, L500.4050, L503.6550, L501.9520, L506.1000, L503.0105, L506.0400 ####[facility] [address] [place], [address] MCHC (RBC) [Mass/Vol] 31.2 g/dL Low 32-36 [facility] Comment on above: Performed By: #### L 503.6150, L100.0100, L500.4050, L503.6550, L501.9520, L506.1000, L503.0105, L506.0400 ####[facility] [address] [place], [address] MCV (RBC) [Entitic vol] 91.9 fL Normal 81-99 [facility] Comment on above: Performed By: #### L 503.6150, L100.0100, L500.4050, L503.6550, L501.9520, L506.1000, L503.0105, L506.0400 ####[facility] [address] [place], [address] Monocytes/100 WBC (Bld) 7.7 % Normal 0-10 [facility] Comment on above: Performed By: #### L 503.6150, L100.0100, L500.4050, L503.6550, L501.9520, L506.1000, L503.0105, L506.0400 ####[facility] [address] [place], [address] Neutrophils/100 WBC (Bld) 60.7 % Normal 47-70 [facility] Comment on above: Performed By: #### L 503.6150, L100.0100, L500.4050, L503.6550, L501.9520, L506.1000, L503.0105, L506.0400 ####[facility] [address] [place], [address] Nucleated RBC (Bld) [#/Vol] 0 10*3/uL Normal 0-5 [facility] Comment on above: Performed By: #### L 503.6150, L100.0100, L500.4050, L503.6550, L501.9520, L506.1000, L503.0105, L506.0400 ####[facility] [address] [place], [address] Platelet mean volume (Bld) [Entitic vol] 9.6 fL Normal 6.2-12.0 [facility] Comment on above: Performed By: #### L 503.6150, L100.0100, L500.4050, L503.6550, L501.9520, L506.1000, L503.0105, L506.0400 ####[facility] [address] [place], [address] Platelets (Bld) [#/Vol] 228 10*3/uL Normal 150-450 [facility] Comment on above: Performed By: #### L 503.6150, L100.0100, L500.4050, L503.6550, L501.9520, L506.1000, L503.0105, L506.0400 ####[facility] [address] [place], [address] RBC (Bld) [#/Vol] 4.67 10*6/uL Normal 4.2-5.4 [facility] Comment on above: Performed By: #### L 503.6150, L100.0100, L500.4050, L503.6550, L501.9520, L506.1000, L503.0105, L506.0400 ####[facility] [address] [place], [address] RDW SD 46.1 fl High 35.1-43.9 [facility] Comment on above: Performed By: #### L 503.6150, L100.0100, L500.4050, L503.6550, L501.9520, L506.1000, L503.0105, L506.0400 ####[facility] [address] [place], [address] WBC (Bld) [#/Vol] 6.6 10*3/uL Normal 4.4-11.0 [facility] Comment on above: Performed By: #### L 503.6150, L100.0100, L500.4050, L503.6550, L501.9520, L506.1000, L503.0105, L506.0400 ####[facility] [address] [place], [address] Comprehensive Metabolic Prof inon 06-01-2024 Albumin [Mass/Vol] 3.3 g/dL Normal 3.2-5.0 [facility] Comment on above: Performed By: #### L 503.6150, L100.0100, L500.4050, L503.6550, L501.9520, L506.1000, L503.0105, L506.0400 ####[facility] [address] [place], [place], [phone] Albumin/Globulin [Mass ratio] 0.8 {ratio} Low 0.9-2.4 [facility] Comment on above: Performed By: #### L 503.6150, L100.0100, L500.4050, L503.6550, L501.9520, L506.1000, L503.0105, L506.0400 ####[facility] [address] [place], [address] ALK P 102 U/L Normal 45-117 [facility] Comment on above: Performed By: #### L 503.6150, L100.0100, L500.4050, L503.6550, L501.9520, L506.1000, L503.0105, L506.0400 ####[facility] [address] [place], [address] ALT [Catalytic activity/Vol] 66 U/L High 13-56 [facility] Comment on above: Performed By: #### L 503.6150, L100.0100, L500.4050, L503.6550, L501.9520, L506.1000, L503.0105, L506.0400 ####[facility] [address] [place], [address] AST [Catalytic activity/Vol] 63 U/L High 15-37 [facility] Comment on above: Performed By: #### L 503.6150, L100.0100, L500.4050, L503.6550, L501.9520, L506.1000, L503.0105, L506.0400 ####[facility] [address] [place], [address] Bilirubin [Mass/Vol] 0.30 mg/dL Normal 0.20-1.00 [facility] Comment on above: Result Comment: For patients on eltrombopag therapy, use of Dimension [place] TBIL is not recommended. Performed By: #### L 503.6150, L100.0100, L500.4050, L503.6550, L501.9520, L506.1000, L503.0105, L506.0400 ####[facility] [address] [place], [address] BUN/CRE 18.1 RATIO Normal 10-20 [facility] Comment on above: Performed By: #### L 503.6150, L100.0100, L500.4050, L503.6550, L501.9520, L506.1000, L503.0105, L506.0400 ####[facility] [address] [place], [address] CA,Total 9.4 mg/dL Normal 8.5-10.1 [facility] Comment on above: Performed By: #### L 503.6150, L100.0100, L500.4050, L503.6550, L501.9520, L506.1000, L503.0105, L506.0400 ####[facility] [address] [place], [address] Chloride [Moles/Vol] 102 mmol/L Normal 98-107 [facility] Comment on above: Performed By: #### L 503.6150, L100.0100, L500.4050, L503.6550, L501.9520, L506.1000, L503.0105, L506.0400 ####[facility] [address] [place], [address] CO2 [Moles/Vol] 29.0 mmol/L Normal 21.0-32.0 [facility] Comment on above: Performed By: #### L 503.6150, L100.0100, L500.4050, L503.6550, L501.9520, L506.1000, L503.0105, L506.0400 ####[facility] [address] [place], [address] Creatinine [Mass/Vol] 0.88 mg/dL Normal 0.55-1.02 [facility] Comment on above: Result Comment: The validity of the calculated GFR GFRAA in patients over70 years has not been determined. Clinical correlation isessential. Performed By: #### L 503.6150, L100.0100, L500.4050, L503.6550, L501.9520, L506.1000, L503.0105, L506.0400 ####[facility] [address] [place], [address] EST GFR - AA 82 mL/min Normal >60 [facility] Comment on above: Result Comment: Afri can Angolan GFR Calc Performed By: #### L 503.6150, L100.0100, L500.4050, L503.6550, L501.9520, L506.1000, L503.0105, L506.0400 ####[facility] [address] [place], [address] GAP 7 Normal 5-15 [facility] Comment on above: Performed By: #### L 503.6150, L100.0100, L500.4050, L503.6550, L501.9520, L506.1000, L503.0105, L506.0400 ####[facility] [address] [place], [address] GFR/1.73 sq M.predicted among non-blacks MDRD (S/P/Bld) [Vol rate/Area] 68 mL/min/{1.73_m2} Normal >60 [facility] Comment on above: Result Comment: Non- GFR Calc Performed By: #### L 503.6150, L100.0100, L500.4050, L503.6550, L501.9520, L506.1000, L503.0105, L506.0400 ####[facility] [address] [place], [address] Globulin (S) [Mass/Vol] 4.0 g/dL Normal 2.2-4.2 [facility] Comment on above: Performed By: #### L 503.6150, L100.0100, L500.4050, L503.6550, L501.9520, L506.1000, L503.0105, L506.0400 ####[facility] [address] [place], [address] Glucose [Mass/Vol] 195 mg/dL High 74-106 [facility] Comment on above: Result Comment: Fast ing Glucose result greater than or equal to 126 mg/dLsuggests DIABETES MELLITUS per A.D.A. criteria. Performed By: #### L 503.6150, L100.0100, L500.4050, L503.6550, L501.9520, L506.1000, L503.0105, L506.0400 ####[facility] [address] [place], [address] Potassium [Moles/Vol] 3.8 mmol/L Normal 3.5-5.1 [facility] Comment on above: Performed By: #### L 503.6150, L100.0100, L500.4050, L503.6550, L501.9520, L506.1000, L503.0105, L506.0400 ####[facility] [address] [place], [address] Sodium [Moles/Vol] 138 mmol/L Normal 136-145 [facility] Comment on above: Performed By: #### L 503.6150, L100.0100, L500.4050, L503.6550, L501.9520, L506.1000, L503.0105, L506.0400 ####[facility] [address] [place], [address] T PROT 7.3 g/dL Normal 6.4-8.2 [facility] Comment on above: Performed By: #### L 503.6150, L100.0100, L500.4050, L503.6550, L501.9520, L506.1000, L503.0105, L506.0400 ####[facility] [address] [place], [address] Urea nitrogen [Mass/Vol] 16 mg/dL Normal 7-18 [facility] Comment on above: Performed By: #### L 503.6150, L100.0100, L500.4050, L503.6550, L501.9520, L506.1000, L503.0105, L506.0400 ####[facility] [address] [place], [address] Ferritinon 06-01-2024 Ferritin [Mass/Vol] 31 ng/mL Normal 8-252 [facility] Comment on above: Performed By: #### L 503.6150, L100.0100, L500.4050, L503.6550, L501.9520, L506.1000, L503.0105, L506.0400 ####[facility] [address] [place], [address] Ironon 06-01-2024 Iron [Mass/Vol] 78 ug/dL Normal 50-170 [facility] Comment on above: Performed By: #### L 503.6150, L100.0100, L500.4050, L503.6550, L501.9520, L506.1000, L503.0105, L506.0400 ####[facility] [address] [place], [place], [phone] T4 Free Directon 06-01-2024 T4 FREE DIRECT 1.07 ng/dL Normal 0.76-1.46 [facility] Comment on above: Performed By: #### L 503.6150, L100.0100, L500.4050, L503.6550, L501.9520, L506.1000, L503.0105, L506.0400 ####[facility] [address] [place], [address] Thyroid Stim Hormone (TSH)on 06-01-2024 TSH 2.790 uIU/mL Normal 0.358-3.740 [facility] Comment on above: Performed By: #### L 503.6150, L100.0100, L500.4050, L503.6550, L501.9520, L506.1000, L503.0105, L506.0400 ####[facility] [address] [place], [address] Vitamin B12on 06-01-2024 Cobalamin (Vitamin B12) [Mass/Vol] 613 pg/mL Normal 211-911 [facility] Comment on above: Performed By: #### L 503.6150, L100.0100, L500.4050, L503.6550, L501.9520, L506.1000, L503.0105, L506.0400 ####[facility] [address] [place], [address] Vitamin D,25 Hydroxyon 06-01 Vitamin D 25-OH 38.7 ng/mL Normal [facility] Comment on above: Result Comment: Ashley min D 25(OH) Status Range Deficiency <20 ng/mL (50nmol/L) Insufficiency 20 - 30 ng/mL (50 - 75 nmol/L) Sufficiency 30 - 100 ng/mL (75 - 250 nmol/L) Toxicity >100 ng/mL (>250 nmol/L) Performed By: #### L 503.6150, L100.0100, L500.4050, L503.6550, L501.9520, L506.1000, L503.0105, L506.0400 ####[facility] [address] [place], [address] MR/BMS.BPon 05-07-2024 MR/BMS.BP Normal [facility] Basic Metabolic Profile (BMP )on 04-03-2024 BUN Normal 7-18 [facility] Comment on above: Result Comment: Canc elled via OM: Order cancelled - Patient discharged Performed By: #### L 100.0100, L500.2500 ####[facility] [address] [place], [address] BUN/CRE Normal 10-20 [facility] Comment on above: Result Comment: Canc elled via OM: Order cancelled - Patient discharged Performed By: #### L 100.0100, L500.2500 ####[facility] [address] [place], [address] CA,Total Normal 8.5-10.1 [facility] Comment on above: Result Comment: Canc elled via OM: Order cancelled - Patient discharged Performed By: #### L 100.0100, L500.2500 ####[facility] [address] [place], [address] CL Normal 98-107 [facility] Comment on above: Result Comment: Canc elled via OM: Order cancelled - Patient discharged Performed By: #### L 100.0100, L500.2500 ####[facility] [address] [place], [address] CO2 Normal 21.0-32.0 [facility] Comment on above: Result Comment: Canc elled via OM: Order cancelled - Patient discharged Performed By: #### L 100.0100, L500.2500 ####[facility] [address] [place], [address] CREAT,SERUM Normal 0.55-1.02 [facility] Comment on above: Result Comment: Canc elled via OM: Order cancelled - Patient discharged Performed By: #### L 100.0100, L500.2500 ####[facility] [address] [place], [address] EST GFR Normal >60 [facility] Comment on above: Result Comment: Canc elled via OM: Order cancelled - Patient discharged Performed By: #### L 100.0100, L500.2500 ####[facility] [address] [place], [address] EST GFR - AA Normal >60 [facility] Comment on above: Result Comment: Canc elled via OM: Order cancelled - Patient discharged Performed By: #### L 100.0100, L500.2500 ####[facility] [address] [place], [address] GAP Normal 5-15 [facility] Comment on above: Result Comment: Canc elled via OM: Order cancelled - Patient discharged Performed By: #### L 100.0100, L500.2500 ####[facility] [address] [place], [address] GLU Normal 74-106 [facility] Comment on above: Result Comment: Canc elled via OM: Order cancelled - Patient discharged Performed By: #### L 100.0100, L500.2500 ####[facility] [address] [place], [address] Potassium Normal 3.5-5.1 [facility] Comment on above: Result Comment: Canc elled via OM: Order cancelled - Patient discharged Performed By: #### L 100.0100, L500.2500 ####[facility] [address] [place], [address] Basic Metabolic Profile (BMP) Normal 136-145 [facility] Comment on above: Result Comment: Canc elled via OM: Order cancelled - Patient discharged Performed By: #### L 100.0100, L500.2500 ####[facility] [address] [place], [address] CBC W/Diff, Automatedon 08-0 6-2023 Absolute Neut Normal 2.0-7.7 [facility] Comment on above: Result Comment: Canc elled via OM: Order cancelled - Patient discharged Performed By: #### L 100.0100, L500.2500 ####[facility] [address] [place], [address] HCT Normal 37-47 [facility] Comment on above: Result Comment: Canc elled via OM: Order cancelled - Patient discharged Performed By: #### L 100.0100, L500.2500 ####[facility] [address] [place], [address] HGB Normal 12.0-15.0 [facility] Comment on above: Result Comment: Canc elled via OM: Order cancelled - Patient discharged Performed By: #### L 100.0100, L500.2500 ####[facility] [address] [place], [address] MCH Normal 27.0-32.0 [facility] Comment on above: Result Comment: Canc elled via OM: Order cancelled - Patient discharged Performed By: #### L 100.0100, L500.2500 ####[facility] [address] [place], [address] MCHC Normal 32-36 [facility] Comment on above: Result Comment: Canc elled via OM: Order cancelled - Patient discharged Performed By: #### L 100.0100, L500.2500 ####[facility] [address] [place], [address] MCV Normal 81-99 [facility] Comment on above: Result Comment: Canc elled via OM: Order cancelled - Patient discharged Performed By: #### L 100.0100, L500.2500 ####[facility] [address] [place], [address] NEUT% Normal 47-70 [facility] Comment on above: Result Comment: Canc elled via OM: Order cancelled - Patient discharged Performed By: #### L 100.0100, L500.2500 ####[facility] [address] [place], [address] PLT Normal 150-450 [facility] Comment on above: Result Comment: Canc elled via OM: Order cancelled - Patient discharged Performed By: #### L 100.0100, L500.2500 ####[facility] [address] [place], [address] RBC Normal 4.2-5.4 [facility] Comment on above: Result Comment: Canc elled via OM: Order cancelled - Patient discharged Performed By: #### L 100.0100, L500.2500 ####[facility] [address] [place], [address] RDW CV Normal 11.6-14.6 [facility] Comment on above: Result Comment: Canc elled via OM: Order cancelled - Patient discharged Performed By: #### L 100.0100, L500.2500 ####[facility] [address] [place], [address] RDW SD Normal 35.1-43.9 [facility] Comment on above: Result Comment: Canc elled via OM: Order cancelled - Patient discharged Performed By: #### L 100.0100, L500.2500 ####[facility] [address] [place], [address] WBC Normal 4.4-11.0 [facility] Comment on above: Result Comment: Canc elled via OM: Order cancelled - Patient discharged Performed By: #### L 100.0100, L500.2500 ####[facility] [address] [place], [address] Endocrinology Visit Reporton 04-02-2024 Endocrinology Visit Report Normal [facility] Basic Metabolic Profile (BMP )on 03-27-2024 BUN Normal 7-18 [facility] Comment on above: Result Comment: Canc elled via OM: Order cancelled - Patient discharged Performed By: #### L 500.2500, L100.0100 ####[facility] [address] [place], [address] BUN/CRE Normal 10-20 [facility] Comment on above: Result Comment: Canc elled via OM: Order cancelled - Patient discharged Performed By: #### L 500.2500, L100.0100 ####[facility] [address] [place], [address] CA,Total Normal 8.5-10.1 [facility] Comment on above: Result Comment: Canc elled via OM: Order cancelled - Patient discharged Performed By: #### L 500.2500, L100.0100 ####[facility] [address] [place], [address] CL Normal 98-107 [facility] Comment on above: Result Comment: Canc elled via OM: Order cancelled - Patient discharged Performed By: #### L 500.2500, L100.0100 ####[facility] [address] [place], [address] CO2 Normal 21.0-32.0 [facility] Comment on above: Result Comment: Canc elled via OM: Order cancelled - Patient discharged Performed By: #### L 500.2500, L100.0100 ####[facility] [address] [place], [address] CREAT,SERUM Normal 0.55-1.02 [facility] Comment on above: Result Comment: Canc elled via OM: Order cancelled - Patient discharged Performed By: #### L 500.2500, L100.0100 ####[facility] [address] [place], [address] EST GFR Normal >60 [facility] Comment on above: Result Comment: Canc elled via OM: Order cancelled - Patient discharged Performed By: #### L 500.2500, L100.0100 ####[facility] [address] [place], [address] EST GFR - AA Normal >60 [facility] Comment on above: Result Comment: Canc elled via OM: Order cancelled - Patient discharged Performed By: #### L 500.2500, L100.0100 ####[facility] [address] [place], [address] GAP Normal 5-15 [facility] Comment on above: Result Comment: Canc elled via OM: Order cancelled - Patient discharged Performed By: #### L 500.2500, L100.0100 ####[facility] [address] [place], [address] GLU Normal 74-106 [facility] Comment on above: Result Comment: Canc elled via OM: Order cancelled - Patient discharged Performed By: #### L 500.2500, L100.0100 ####[facility] [address] [place], [address] Potassium Normal 3.5-5.1 [facility] Comment on above: Result Comment: Canc elled via OM: Order cancelled - Patient discharged Performed By: #### L 500.2500, L100.0100 ####[facility] [address] [place], [address] Basic Metabolic Profile (BMP) Normal 136-145 [facility] Comment on above: Result Comment: Canc elled via OM: Order cancelled - Patient discharged Performed By: #### L 500.2500, L100.0100 ####[facility] [address] [place], [address] CBC W/Diff, Automatedon 07-3 0-2023 Absolute Neut Normal 2.0-7.7 [facility] Comment on above: Result Comment: Canc elled via OM: Order cancelled - Patient discharged Performed By: #### L 500.2500, L100.0100 ####[facility] [address] [place], [address] HCT Normal 37-47 [facility] Comment on above: Result Comment: Canc elled via OM: Order cancelled - Patient discharged Performed By: #### L 500.2500, L100.0100 ####[facility] [address] [place], [address] HGB Normal 12.0-15.0 [facility] Comment on above: Result Comment: Canc elled via OM: Order cancelled - Patient discharged Performed By: #### L 500.2500, L100.0100 ####[facility] [address] [place], [address] MCH Normal 27.0-32.0 [facility] Comment on above: Result Comment: Canc elled via OM: Order cancelled - Patient discharged Performed By: #### L 500.2500, L100.0100 ####[facility] [address] [place], [address] MCHC Normal 32-36 [facility] Comment on above: Result Comment: Canc elled via OM: Order cancelled - Patient discharged Performed By: #### L 500.2500, L100.0100 ####[facility] [address] [place], [address] MCV Normal 81-99 [facility] Comment on above: Result Comment: Canc elled via OM: Order cancelled - Patient discharged Performed By: #### L 500.2500, L100.0100 ####[facility] [address] [place], [address] NEUT% Normal 47-70 [facility] Comment on above: Result Comment: Canc elled via OM: Order cancelled - Patient discharged Performed By: #### L 500.2500, L100.0100 ####[facility] [address] [place], [address] PLT Normal 150-450 [facility] Comment on above: Result Comment: Canc elled via OM: Order cancelled - Patient discharged Performed By: #### L 500.2500, L100.0100 ####[facility] [address] [place], [address] RBC Normal 4.2-5.4 [facility] Comment on above: Result Comment: Canc elled via OM: Order cancelled - Patient discharged Performed By: #### L 500.2500, L100.0100 ####[facility] [address] [place], [address] RDW CV Normal 11.6-14.6 [facility] Comment on above: Result Comment: Canc elled via OM: Order cancelled - Patient discharged Performed By: #### L 500.2500, L100.0100 ####[facility] [address] [place], [address] RDW SD Normal 35.1-43.9 [facility] Comment on above: Result Comment: Canc elled via OM: Order cancelled - Patient discharged Performed By: #### L 500.2500, L100.0100 ####[facility] [address] [place], [address] WBC Normal 4.4-11.0 [facility] Comment on above: Result Comment: Canc elled via OM: Order cancelled - Patient discharged Performed By: #### L 500.2500, L100.0100 ####[facility] [address] [place], [address] 36on 11-03-2023 36 Name of caller: Flex Contact phone number: [phone] Relationship to Patient: patient Provider: Dr. Landis [...] hours to return their call: No Normal [facility] COLONOSCOPYon 09-06-2023 Colonoscopy Table formatting fro m the original result was not included. Normal [facility] Colonoscopy studyon 09-06-19 Table formatting fro [...] of bowel preparation was evaluated using the [place] Bowel Preparation Scale with scores of: right [...] PM Specimens No specimens collected Procedure Location [address] [id number] Referring Provider Renita Mijares Do [address] [place] [address], [address] [address] Procedure Provider Renita Mijares DO [facility] Work Phone: [facility] Work Phone: Radiology Study observation (narrative) [facility] Work Phone: .Auto Diffon 02-24-2023 Basophil, Absolute 0.0 10 3/mcL Normal 0.0-0.2 [facility] ([place]) Comment on above: Performed By: #### C ROMEO BRYANT ANEU #### [address] [address] Basophils/100 WBC (Bld) 0.2 % Normal 0.0-2.5 [facility] ([place]) Comment on above: Performed By: #### C ROMEO BRYANT ANEU #### [address] [address] Eosinophil, Absolute 0.4 10 3/mcL Normal 0.0-0.4 [facility] ([place]) Comment on above: Performed By: #### ROMEO FRANCIS, ANEU #### [address] [address] Eosinophils/100 WBC (Bld) 3.7 % Normal 0.0-7.0 [facility] ([place]) Comment on above: Performed By: #### ROMEO FRANCIS, ANEU #### [address] [address] Lymphocyte, Absolute 1.9 10 3/mcL Normal 0.8-3.9 [facility] ([place]) Comment on above: Performed By: #### ROMEO FRANCIS, ANEU #### [address] [address] Lymphocytes/100 WBC (Bld) 19.2 % Normal 10.0-50.0 [facility] ([place]) Comment on above: Performed By: #### ROMEO FRANCIS, ANEU #### [address] [address] Monocyte, Absolute 0.6 10 3/mcL Normal 0.2-1.0 [facility] ([place] Comment on above: Performed By: #### ROMEO FRANCIS, ANEU #### [address] [address] Monocytes/100 WBC (Bld) 6.5 % Normal 1.7-13.0 [facility] ([place]) Comment on above: Performed By: #### ROMEO FRANCIS, ANEU #### [address] [address] Neutrophils/100 WBC (Bld) 70.4 % Normal 37.0-80.0 [facility] ([place]) Comment on above: Performed By: #### ROMEO FRANCIS, ANEU #### [address] [address] .NEUABSon 02-24-2023 Neutrophil, Absolute 6.9 10 3/mcL High 2.9-6.2 [facility] ([place]) Comment on above: Performed By: #### ROMEO FRANCIS ANEU #### [address] [address] CBCon 02-24-2023 Erythrocyte distribution width (RBC) [Ratio] 14.5 % Normal 11.5-14.5 [facility] ([place] Comment on above: Performed By: #### ROMEO FRANCIS, PATRICK #### Elsy [address] [address] Hematocrit (Bld) [Volume fraction] 34.4 % Low 37.0-47.0 [facility] ([place] Comment on above: Performed By: #### ROMEO FRANCIS ANEU #### [address] [address] Hgb 11.4 G/dL Low 12.0-16.0 [facility] ([place] Comment on above: Performed By: #### ROMEO FRANCIS, ANEU #### [address] [address] MCH (RBC) [Entitic mass] 29.9 pg Normal 27.0-31.2 [facility] ([place] Comment on above: Performed By: #### ROMEO FRANCIS ANEU #### [address] [address] MCHC 33.3 G/dL Normal 33.0-37.0 [facility] ([place] Comment on above: Performed By: #### ROMEO FRANCIS, ANEU #### [address] [address] MCV (RBC) [Entitic vol] 89.7 fL Normal 80.0-94.0 [facility] ([place] Comment on above: Performed By: #### ROMEO FRANCIS, ANEU #### [address] [address] Platelet 180 10 3/mcL Normal 130-400 [facility] ([place] Comment on above: Performed By: #### ROMEO FRANCIS, ANEU #### [address] [address] Platelet mean volume (Bld) [Entitic vol] 7.2 fL Low 7.4-10.4 [facility] ([place] Comment on above: Performed By: #### C ROMEO BRYANT, ANEU #### [address]sy [place] [place], [place] [address] RBC 3.83 10 6/mcL Low 4.20-5.40 [facility] ([place] Comment on above: Performed By: #### C ROMEO BRYANT, ANEU #### Elsy [address] [place], [place] [address] WBC 9.8 10 3/mcL Normal 4.6-10.8 [facility] ([place] Comment on above: Performed By: #### C ROMEO BRYANT, ANEU #### Elsy [address] [place], [place] [address] LABORATORYOrdered By: Soha Jiang on 02-24-2023 Blood Glucose Testing Reason Routine (02/24/23 11:46 AM) [facility] Glucose [Mass/Vol] 209 mg/dL Invalid Interpretation Code 82 - 115 mg/dL [facility] Blood Glucose Testing Reason Routine (02/24/23 7:05 AM) [facility] Glucose [Mass/Vol] 139 mg/dL Invalid Interpretation Code 82 - 115 mg/dL [facility] LABORATORYOrdered By: SYSTEM SYSTEM on 02-24-2023 [...] Absolute 0.0 10 3/mcL Normal 0.0-0.2 [facility] ([place] Comment on above: Performed By: #### B MP, GFR, CBC, ADIFF, ANEU #### [address] [address] Basophils/100 WBC (Bld) 0.1 % Normal 0.0-2.5 [facility] ([place] Comment on above: Performed By: #### B MP, GFR, CBC, ADIFF, ANEU #### [address] [address] Eosinophil, Absolute 0.0 10 3/mcL Normal 0.0-0.4 [facility] ([place] Comment on above: Performed By: #### B MP, GFR, CBC, ADIFF, ANEU #### [address] [address] Eosinophils/100 WBC (Bld) 0.1 % Normal 0.0-7.0 [facility] ([place] Comment on above: Performed By: #### B MP, GFR, CBC, ADIFF, ANEU #### [address] [address] Lymphocyte, Absolute 1.4 10 3/mcL Normal 0.8-3.9 [facility] ([place] Comment on above: Performed By: #### B MP, GFR, CBC, ADIFF, ANEU #### [address] [address] Lymphocytes/100 WBC (Bld) 12.5 % Normal 10.0-50.0 [facility] ([place] Comment on above: Performed By: #### B MP, GFR, CBC, ADIFF, ANEU #### [address] [address] Monocyte, Absolute 0.5 10 3/mcL Normal 0.2-1.0 [facility] ([place] Comment on above: Performed By: #### B MP, GFR, CBC, ADIFF, ANEU #### [address] [address] Monocytes/100 WBC (Bld) 5.0 % Normal 1.7-13.0 [facility] ([place] Comment on above: Performed By: #### B MP, GFR, CBC, ADIFF, ANEU #### [address] [address] Neutrophils/100 WBC (Bld) 82.3 % High 37.0-80.0 [facility] ([place] Comment on above: Performed By: #### B MP, GFR, CBC, ADIFF, ANEU #### Elsy [place] [address] [place], [place] [address] .GFRon 02-23-2023 GFR 61 ml/min/1.73sqm Normal [facility] ([place] Comment on above: Result Comment: GFR Population [...] B MP, GFR, CBC, ADIFF, ANEU #### Elsy [address] [address] GFR Non- 51 ml/min/1.73sqm Normal [facility] ([place] Comment on above: Result Comment: GFR Population [...] B MP, GFR, CBC, ADIFF, ANEU #### [address] [address] .NEUABSon 02-23-2023 Neutrophil, Absolute 9.0 10 3/mcL High 2.9-6.2 [facility] ([place] Comment on above: Performed By: #### B MP, GFR, CBC, ADIFF, ANEU #### [address] [address] BMPon 02-23-2023 BUN/Creatinine Ratio 16 ratio Normal 7-27 [facility] ([place] Comment on above: Performed By: #### B MP, GFR, CBC, ADIFF, ANEU #### [address] [address] Calcium [Mass/Vol] 8.7 mg/dL Normal 8.4-10.2 [facility] ([place] Comment on above: Performed By: #### B MP, GFR, CBC, ADIFF, ANEU #### [place] [id number] Chloride [Moles/Vol] 103 mmol/L Normal 98-107 [facility] ([place] Comment on above: Performed By: #### B MP, GFR, CBC, ADIFF, ANEU #### [place] [address] CO2 [Moles/Vol] 30 mmol/L Normal 23-31 [facility] ([place] Comment on above: Performed By: #### B MP, GFR, CBC, ADIFF, ANEU #### [address] [address] Creatinine [Mass/Vol] 1.09 mg/dL High 0.55-1.02 [facility] ([place]) Comment on above: Performed By: #### B MP, GFR, CBC, ADIFF, ANEU #### [address] [address] Electrolyte Balance 8.0 mEq/L Normal 4.0-15.0 [facility] ([place]) Comment on above: Performed By: #### B MP, GFR, CBC, ADIFF, ANEU #### [place] [id number] Glucose [Mass/Vol] 239 mg/dL High 80-115 [facility] ([place] Comment on above: Performed By: #### B MP, GFR, CBC, ADIFF, ANEU #### [address] [address] Potassium [Moles/Vol] 4.8 mmol/L Normal 3.5-5.1 [facility] ([place] Comment on above: Performed By: #### B MP, GFR, CBC, ADIFF, ANEU #### [address] [address] Sodium [Moles/Vol] 141 mmol/L Normal 136-145 [facility] ([place] Comment on above: Performed By: #### B MP, GFR, CBC, ADIFF, ANEU #### [address] [address] Urea nitrogen [Mass/Vol] 17 mg/dL Normal 7-18 [facility] ([place] Comment on above: Performed By: #### B MP, GFR, CBC, ADIFF, ANEU #### [address] [address] CBCon 02-23-2023 Erythrocyte distribution width (RBC) [Ratio] 14.4 % Normal 11.5-14.5 [facility] ([place] Comment on above: Performed By: #### B MP, GFR, CBC, ADIFF, ANEU #### [address] [address] Hematocrit (Bld) [Volume fraction] 34.9 % Low 37.0-47.0 [facility] ([place] Comment on above: Performed By: #### B MP, GFR, CBC, ADIFF, ANEU #### [address] [address] Hgb 11.6 G/dL Low 12.0-16.0 [facility] ([place] Comment on above: Performed By: #### B MP, GFR, CBC, ADIFF, ANEU #### [address] [address] MCH (RBC) [Entitic mass] 29.6 pg Normal 27.0-31.2 [facility] ([place] Comment on above: Performed By: #### B MP, GFR, CBC, ADIFF, ANEU #### [address] [address] MCHC 33.1 G/dL Normal 33.0-37.0 [facility] ([place] Comment on above: Performed By: #### B MP, GFR, CBC, ADIFF, ANEU #### [address] [address] MCV (RBC) [Entitic vol] 89.4 fL Normal 80.0-94.0 [facility] ([place] Comment on above: Performed By: #### B MP, GFR, CBC, ADIFF, ANEU #### [address] [address] Platelet 231 10 3/mcL Normal 130-400 [facility] ([place] Comment on above: Performed By: #### B MP, GFR, CBC, ADIFF, ANEU #### [address] [address] Platelet mean volume (Bld) [Entitic vol] 7.4 fL Normal 7.4-10.4 [facility] ([place] Comment on above: Performed By: #### B MP, GFR, CBC, ADIFF, ANEU #### [address] [address] RBC 3.90 10 6/mcL Low 4.20-5.40 [facility] ([place] Comment on above: Performed By: #### B MP, GFR, CBC, ADIFF, ANEU #### [address] [address] WBC 10.9 10 3/mcL High 4.6-10.8 [facility] ([place] Comment on above: Performed By: #### B MP, GFR, CBC, ADIFF, ANEU #### [address] [address] LABORATORYOrdered By: Jacob Farmer on 06-28-2023 Glucose [Mass/Vol] 171 mg/dL Invalid Interpretation Code 82 - 115 mg/dL [facility] LABORATORYOrdered By: Eduardo Ghotra on 02-23-2023 Blood Glucose Testing Reason Routine (02/23/23 9:26 PM) [facility] LABORATORYOrdered By: Freddy Salomon on 02-23-2023 Stated Blood Glucose 187 [facility] LABORATORYOrdered By: Robert Wright on 02-23-2023 Basophil, [...] [Mass ratio] 16 ratio Invalid Interpretation Code ratio AO ADM SS Gel ABOon 02-22-2023 ABO/Rh Interp Negative Invalid Interpretation Code [facility] ([place] Comment on above: Performed By: #### A VERONIQUE VILLARREALG #### [facility] [address] [place], [place] [address] Gel ABSon 02-22-2023 Antibody Screen Gel Negative Normal [facility] ([place]) Comment on above: Performed By: #### A CHERELLE ANSG #### [facility] [address] [place], [place] [address] LABORATORYOrdered By: Kiran Harding on 02-22-2023 Stated Blood Glucose 273 [facility] LABORATORYOrdered By: Aline weiss on 02-22-2023 Stated Blood Glucose 301 [facility] Time of Stated Blood Glucose [id number] [facility] LABORATORYOrdered By: Ann Marie Joiner on [...] Date: 02/22/2023 1:07:27 PM Ordering Provider: PJ Bolden [facility] ([place]) CT KNEE W/O CONTRAST RIGHTon 02-04-2023 CT [...] 02/04/2023 9:09:05 AM Ordering Provider: PJ Bolden [facility] ([place]) .Auto Diffon 02-03-2023 Basophil, Absolute 0.0 10 3/mcL Normal 0.0-0.2 [facility] ([place]) Comment on above: Performed By: #### C ROMEO BRYANT ANEU #### [address] [address] Basophils/100 WBC (Bld) 0.5 % Normal 0.0-2.5 [facility] ([place] Comment on above: Performed By: #### C ROMEO BRYANT ANEU #### Elsy [address] [address] Eosinophil, Absolute 0.1 10 3/mcL Normal 0.0-0.4 [facility] ([place]) Comment on above: Performed By: #### ROMEO FRANCIS, ANEU #### [address] [address] Eosinophils/100 WBC (Bld) 2.0 % Normal 0.0-7.0 [facility] ([place]) Comment on above: Performed By: #### ROMEO FRANCIS, ANEU #### [address] [address] Lymphocyte, Absolute 2.2 10 3/mcL Normal 0.8-3.9 [facility] ([place]) Comment on above: Performed By: #### ROMEO FRANCIS, ANEU #### [address] [address] Lymphocytes/100 WBC (Bld) 29.2 % Normal 10.0-50.0 [facility] ([place]) Comment on above: Performed By: #### ROMEO FRANCIS, ANEU #### [address] [address] Monocyte, Absolute 0.5 10 3/mcL Normal 0.2-1.0 [facility] ([place]) Comment on above: Performed By: #### ROMEO FRANCIS, ANEU #### [address] [address] Monocytes/100 WBC (Bld) 6.3 % Normal 1.7-13.0 [facility] ([place]) Comment on above: Performed By: #### ROMEO FRANCIS, ANEU #### [address] [address] Neutrophils/100 WBC (Bld) 62.0 % Normal 37.0-80.0 [facility] ([place]) Comment on above: Performed By: #### ROMEO FRANCIS, ANEU #### [address] [address] .GFRon 02-03-2023 GFR 74 ml/min/1.73sqm Normal [facility] ([place]) Comment on above: Result Comment: GFR [...] square meters Performed By: #### C ROMEO BRYANT, ANEU #### Elsy [address] [address] GFR Non- 61 ml/min/1.73sqm Normal [facility] ([place] Comment on above: Result Comment: GFR Population [...] square meters Performed By: #### C ROMEO BRYANT, ANEU #### Elsy [address] [address] .NEUABSon 02-03-2023 Neutrophil, Absolute 4.7 10 3/mcL Normal 2.9-6.2 [facility] ([place]) Comment on above: Performed By: #### ROMEO FRANCIS, ANEU #### Elsy [address] [address] A1Con 02-03-2023 HbA1c (Bld) [Mass fraction] 6.7 % High 4.3-6.4 [facility] ([place] Comment on above: Performed By: #### ROMEO FRANCIS ANEU #### [address] [address] ALBon 02-03-2023 Albumin Level 3.6 G/dL Normal 3.4-4.8 [facility] ([place] Comment on above: Performed By: #### ROMEO FRANCIS, ANEU #### [address] [address] BMPon 02-03-2023 BUN/Creatinine Ratio 23 ratio Normal 7-27 [facility] ([place] Comment on above: Performed By: #### ROMEO FRANCIS ANEU #### [address] [address] Calcium [Mass/Vol] 8.9 mg/dL Normal 8.4-10.2 [facility] ([place] Comment on above: Performed By: #### ROMEO FRANCIS, ANEU #### [address] [address] Chloride [Moles/Vol] 100 mmol/L Normal 98-107 [facility] ([place] Comment on above: Performed By: #### ROMEO FRANCIS, ANEU #### [address] [address] CO2 [Moles/Vol] 30 mmol/L Normal 23-31 [facility] ([place] Comment on above: Performed By: #### ROMEO FRANCIS, ANEU #### [address] [address] Creatinine [Mass/Vol] 0.93 mg/dL Normal 0.55-1.02 [facility] ([place]) Comment on above: Performed By: #### ROMEO FRANCIS, ANEU #### [address] [address] Electrolyte Balance 9.0 mEq/L Normal 4.0-15.0 [facility] ([place]) Comment on above: Performed By: #### ROMEO FRANCIS, ANEU #### Elsy [address] [address] Glucose [Mass/Vol] 258 mg/dL High 80-115 [facility] ([place] Comment on above: Performed By: #### C ROMEO BRYANT, ANEU #### [address] [address] Potassium [Moles/Vol] 4.7 mmol/L Normal 3.5-5.1 [facility] ([place]) Comment on above: Performed By: #### C ROMEO BRYANT, ANEU #### [address] [address] Sodium [Moles/Vol] 139 mmol/L Normal 136-145 [facility] ([place] Comment on above: Performed By: #### C ROMEO BRYANT, ANEU #### [address] [address] Urea nitrogen [Mass/Vol] 21 mg/dL High 7-18 [facility] ([place] Comment on above: Performed By: #### C ROMEO BRYANT, ANEU #### [address] [address] CBCon 02-03-2023 Erythrocyte distribution width (RBC) [Ratio] 15.2 % High 11.5-14.5 [facility] ([place] Comment on above: Order Comment: Pre-A dmission Testing Performed By: #### C ROMEO BRYANT, ANEU #### [address] [address] Hematocrit (Bld) [Volume fraction] 36.6 % Low 37.0-47.0 [facility] ([place] Comment on above: Order Comment: Pre-A dmission Testing Performed By: #### C ROMEO BRYANT, ANEU #### [address] [address] Hgb 12.0 G/dL Normal 12.0-16.0 [facility] ([place] Comment on above: Order Comment: Pre-A dmission Testing Performed By: #### C ROMEO BRYANT, ANEU #### [address] [address] MCH (RBC) [Entitic mass] 29.5 pg Normal 27.0-31.2 [facility] ([place] Comment on above: Order Comment: Pre-A dmission Testing Performed By: #### C BCROMEO, ANEU #### [address] [address] MCHC 32.8 G/dL Low 33.0-37.0 [facility] ([place] Comment on above: Order Comment: Pre-A dmission Testing Performed By: #### C BCROMEO, ANEU #### Elsy [address] [address] MCV (RBC) [Entitic vol] 90.0 fL Normal 80.0-94.0 [facility] ([place] Comment on above: Order Comment: Pre-A dmission Testing Performed By: #### C ROMEO BRYANT, ANEU #### [address] [address] Platelet 234 10 3/mcL Normal 130-400 [facility] ([place] Comment on above: Order Comment: Pre-A dmission Testing Performed By: #### C ROMEO BRYANT, ANEU #### [address] [address] Platelet mean volume (Bld) [Entitic vol] 7.0 fL Low 7.4-10.4 [facility] ([place] Comment on above: Order Comment: Pre-A dmission Testing Performed By: #### C ROMEO BRYANT, ANEU #### [address] [address] RBC 4.07 10 6/mcL Low 4.20-5.40 [facility] ([place] Comment on above: Order Comment: Pre-A dmission Testing Performed By: #### C BCROMEO, ANEU #### [address] [address] WBC 7.5 10 3/mcL Normal 4.6-10.8 [facility] ([place] Comment on above: Order Comment: Pre-A dmission Testing Performed By: #### C BC, ADIFF, ANEU #### Elsy [address] [place], [place] [address] Gel ABOon 02-03-2023 ABO/Rh Interp Negative Invalid Interpretation Code [facility] ([place] Comment on above: Order Comment: SURG EDMOND 6/27 -AC Performed By: #### C BC, ADIFF, ANEU #### Elsy [address] [place], [place] [address] Gel ABSon 02-03-2023 Antibody Screen Gel Negative Normal [facility] ([place]) Comment on above: Order Comment: SURG EDMOND 6/27 -AC Performed By: #### C BC, ADIFF, ANEU #### Elsy [address] [address] [place], [place] [address] LABORATORYOrdered By: Ann Marie Joiner on 02-03-2023 ABO/Rh Interp Negative Invalid Interpretation Code AO BB SS Antibody Screen Gel Negative ABSC (02/03/23 2:34 PM) Invalid Interpretation Code AO BB SS LABORATORYOrdered By: [employer] [facility] on 02-03-2023 Albumin BCP dye [Mass/Vol] [...] peptide B (Bld) [Mass/Vol] 14.9 pg/mL 0-100 [facility] Basophil percentageOrdered B y: Dr. Mckeon on 09-17-2022 Chloride [Moles/Vol] 97 mmol/L 98-107 [facility] Glucose [Mass/Vol] 146 mg/dL 74-106 [facility] Comment on above: Fasting Glucose resu lt greater than or equal to 126 mg/dL suggests DIABETES MELLITUS per A.D.A. criteria. Potassium [Moles/Vol] 3.6 mmol/L 3.5-5.1 [facility] Sodium [Moles/Vol] 139 mmol/L 136-145 [facility] Glucose Glucometer (dC) [M ass/Vol]Ordered By: Dr. Anderson on 09-17-2022 Glucose [Mass/Vol] 129 mg/dL 74-106 [facility] Comment on above: MANAGEMENT OF PATIEN T CARE PER NURSING PROTOCOL Influenza virus A and B and SARS-CoV-2 (COVID-19) Ag panel - Upper respiratory specimOrdered By: Dr. Anderson on 09-17-2022 SARS-CoV-2 (COVID-19) RNA ROJELIO+probe Ql (Resp) [facility] Laboratory - Chemistry and C hemistry - challengeOrdered By: Dr. Mckeon on 09-17-2022 CO2 [Moles/Vol] 32.0 mmol/L 21.0-32.0 [facility] Urea nitrogen/Creatinine [Mass ratio] 18.4 mg/mg 10-20 [facility] No Panel InformationOrdered By: Dr. Mckeon on 09-17-2022 Estimated Creatinine Clearance Calc 56.41 ml/min [facility] Estimated GFR (MDRD) Amer 84 mL/min >60 [facility] Comment on above: GFR Calc Estimated GFR (MDRD) Non-Af Amer 70 mL/min >60 [facility] Comment on above: Non- GFR Calc Serum or plasma calcium dread urement (mass/volume)Ordered By: Dr. Mckeon on 09-17-2022 Calcium [Mass/Vol] 8.8 mg/dL 8.5-10.1 [facility] Serum or plasma creatinine m easurement (mass/volume)Ordered By: Dr. Mckeon on 09-17-2022 Creatinine [Mass/Vol] 0.87 mg/dL 0.55-1.02 [facility] Comment on above: The validity of the calculated GFR & GFRAA in patients over 70 years has not been determined. Clinical correlation is essential. Serum or plasma urea nitroge n measurement (mass/volume)Ordered By: Dr. Mckeon on 09-17-2022 Urea nitrogen [Mass/Vol] 16 mg/dL 7-18 [facility] Thin prep Papanicolaou smear with manual screeningOrdered By: Dr. Mckeon on 09-17-2022 Thin prep Papanicolaou smear with manual screening 10 5-15 [facility] Absolute lymphocyte countOrd ered By: Dr. Dee on 09-16-2022 Lymphocytes Auto (Unsp spec) [#/Vol] 1.58 10*3/uL 0.83-4.51 [facility] Assessment of wrist artery p atency prior to arterial punctureOrdered By: Dr. Dee on 09-16-2022 Arterial patency Wrist artery --pre arterial puncture Positive [facility] Base excessOrdered By: Dr. Krystin dean on 09-16-2022 Base excess Calc (BldV) [Moles/Vol] 7 mmol/L -2-2 [facility] Basophil percentageOrdered B y: Dr. Dee on 09-16-2022 Basophil percentage 31.9 mmol/L 22-26 [facility] Basophils/100 WBC (Bld) 95 % 95-99 [facility] Basophil percentage 0 SEEN /hpf 0-5 [facility] Basophils/100 WBC (Bld) 0.4 % 0-1 [facility] Eosinophils/100 WBC (Bld) 3.3 % 0-5 [facility] Neutrophils (Bld) [#/Vol] 5.8 10*3/uL 2.0-7.7 [facility] Neutrophils/100 WBC (Bld) 69.5 % 47-70 [facility] WBC (Bld) [#/Vol] 8.4 10*3/uL 4.4-11.0 [facility] Bilirubin Test strip Ql (U)O rdered By: Dr. Dee on 09-16-2022 Bilirubin Ql (U) Negative Negative [facility] Blood erythrocytes count (nu mber/volume)Ordered By: Dr. Dee on 09-16-2022 RBC (Bld) [#/Vol] 4.41 10*6/uL 4.2-5.4 [facility] Blood hemoglobin measurement (mass/volume)Ordered By: Dr. Dee on 09-16-2022 Hemoglobin (Bld) [Mass/Vol] 12.2 g/dL 12.0-15.0 [facility] Blood lymphocytes/100 leukoc ytesOrdered By: Dr. Dee on 09-16-2022 Lymphocytes/100 WBC (Bld) 18.8 % 19-41 [facility] Blood monocytes/100 leukocyt esOrdered By: Dr. Dee on 09-16-2022 Monocytes/100 WBC (Bld) 7.5 % 0-10 [facility] Blood platelet mean volumeOr dered By: Dr. Dee on 09-16-2022 Platelet mean volume (Bld) [Entitic vol] 10.1 fL 6.2-12.0 [facility] CO2 (BldA) [Partial pressure ]Ordered By: Dr. Dee on 09-16-2022 CO2 (Bld) [Partial pressure] 53.2 mm[Hg] 35-45 [facility] Determination of erythrocyte mean corpuscular volume (MCV)Ordered By: Dr. Dee on 09-16-2022 MCV (RBC) [Entitic vol] 90.0 fL 81-99 [facility] Hematocrit Auto (Bld) [Volum e fraction]Ordered By: Dr. Dee on 09-16-2022 Hematocrit (Bld) [Volume fraction] 39.7 % 37-47 [facility] Ketones Test strip Ql (U)Ord ered By: Dr. Dee on 09-16-2022 Ketones Ql (U) Negative Negative [facility] - Chemistry and C hemistry - challengeOrdered By: Dr. Dee on 09-16-2022 Natriuretic peptide B (Bld) [Mass/Vol] 76.4 pg/mL 0-100 [facility] - Hematology and Cell countsOrdered By: Dr. Dee on 09-16-2022 Erythrocyte distribution width (RBC) [Entitic vol] 45.8 fL 35.1-43.9 [facility] Erythrocyte distribution width (RBC) [Ratio] 14.1 % 11.6-14.6 [facility] Immature granulocytes/100 WBC (Bld) 0.500 % 0.0-0.9 [facility] Comment on above: IG% - Immature Granu locytes (promyelocytes, myelocytes and metamyelocytes) > 1% indicates that a LEFT SHIFT is Present. MCH (RBC) [Entitic mass] 27.7 pg 27.0-32.0 [facility] Nucleated RBC/100 WBC (Bld) [Ratio] 0 % 0-5 [facility] MCHC Auto (RBC) [Mass/Vol]Or dered By: Dr. Dee on 09-16-2022 MCHC (RBC) [Mass/Vol] 30.7 g/dL 32-36 [facility] Mucus LM Ql (Urine sed)Order ed By: Dr. Dee on 09-16-2022 Mucus Ql (Urine sed) 0 SEEN /hpf [facility] Nitrite Test strip Ql (U)Ord ered By: Dr. Dee on 09-16-2022 Nitrite Ql (U) Negative Negative [facility] No Panel InformationOrdered By: Dr. Dee on 09-16-2022 Blood Gas Liter Flow 2.0 /min [facility] Blood Gas Sample Site L Radial [facility] Blood Gas Specimen Type ART [facility] Blood Gas Total CO2 34 mmol/L [facility] Oxygen Delivery Device Cannula [facility] Troponin I High Sensitivity 6 pg/mL 3.0-54.0 [facility] Comment on above: Please Note: New Selene t Units and Gender Specific Reference Ranges. For more information see Policy Stat Procedure [place] High Sensitivity Troponin (TNIH) and attachments. Oxygen (BldA) [Partial press ure]Ordered By: Dr. Dee on 09-16-2022 Oxygen (Bld) [Partial pressure] 79 mmHG 75-100 [facility] Platelets bldOrdered By: Dr. Dee on 09-16-2022 Platelets (Bld) [#/Vol] 254 10*3/uL 150-450 [facility] Protein Test strip Ql (U)Ord ered By: Dr. Dee on 09-16-2022 Protein Ql (U) Negative Negative [facility] Squamous epithelial cells de tection in urine sediment by light microscopyOrdered By: Dr. Dee on 09-16-2022 Epithelial cells.squamous LM Ql (Urine sed) 0-5 SEEN /hpf 5-10 [facility] Urine blood detectionOrdered By: Dr. Dee on 09-16-2022 RBC Ql (U) Negative Negative [facility] RBC Ql (U) 0 SEEN /hpf 0-5 [facility] Urine clarityOrdered By: Dr. Dee on 09-16-2022 Clarity (U) Clear Clear [facility] Urine color determinationOrd ered By: Dr. Dee on 09-16-2022 Color (U) Yellow Yellow [facility] Urine glucose detectionOrder ed By: Dr. Dee on 09-16-2022 Glucose Ql (U) Normal mg/dl Normal [facility] Urine leukocyte esterase det ection by dipstickOrdered By: Dr. Dee on 09-16-2022 Leukocyte esterase Test strip Ql (U) Negative Negative [facility] Urine pHOrdered By: Dr. Lloyd joshi on 09-16-2022 pH (U) 7.0 [pH] 5.0 - 8.0 [facility] Urine sediment bacteria coun t by microscopy (number/high power field)Ordered By: Dr. Dee on 09-16-2022 Bacteria LM.HPF (Urine sed) [#/Area] 0 /[HPF] None Seen [facility] Urine specific gravity measu rementOrdered By: Dr. Dee on 09-16-2022 Specific gravity (U) [Rel density] 1.005 1.002-1.030 [facility] Urobilinogen Auto test strip Ql (U)Ordered By: Dr. Dee on 09-16-2022 Urobilinogen Ql (U) Normal mg/dl Normal [facility] pH measurementOrdered By: Dr Nikhil Dee on 09-16-2022 pH (Unsp spec) 7.39 [pH] 7.35-7.45 [facility] No Panel InformationOrdered By: Dr. Shaw on 09-15-2022 D-Dimer Quantitative (PE/DVT) 0.65 FEU/ug/m 0.27-0.49 [facility] Comment on above: D-Dimer ELEVATED (>0 .49): Additional studies and clinicalassessments are indicated to conclude diagnosis of:Deep Vein Thrombosis (DVT) or Pulmonary Embolism (PE)CRITICAL VALUE VERIFIED. CALLED TO SHELDON CHILEL09/15/22 1437 Jocy Leal.RESULTS READ BACK BY SAME. Laboratory - Hematology and Cell countson 09-13-2022 HbA1c (Bld) [Mass fraction] 7.1 % [facility] - Drug toxicology Ordered By: Dr. Trejo on 07-07-2022 Amphetamines Ql (U) Negative <1000 ng/mL [facility] Benzodiazepines Ql (U) Negative < 200 ng/mL [facility] Cannabinoids Screen Ql (U) Negative < 50 ng/mL [facility] Cocaine Ql (U) Negative < 300 ng/mL [facility] Opiates Ql (U) Positive < 300 ng/mL [facility] No Panel InformationOrdered By: Dr. Trejo on 07-07-2022 MDMA (Ecstasy) Screen Negative < 500 ng/mL [facility] Miscellaneous Test See comment [facility] Comment on above: [id number] 6+OXYCODONE-B UND (ng/mL) DRUG RESULT SCREEN CUTOFF____ [...] 300 Oxymorphone Negative 300 TESTING PERFORMED AT [facility]. ORIGINAL REPORT ON FILE IN LAB CONTAINS ADDITIONAL TEST SITE INFORMATION. Urine Barbiturates Screen Negative < 200 ng/mL [facility] Urine Drug Screen Comment [facility] Comment on above: CONFIRMATORY TESTING FOR [...] TESTING MUST BE ORDERED SEPARATELY. USE TESTMNEMONIC: [facility] Urine Methadone Screen Negative < 300 ng/mL [facility] Urine phencyclidine (PCP) de tectionOrdered By: Dr. Trejo on 11-09-2022 Phencyclidine Ql (U) Negative < 25 ng/mL [facility] Wolf 06-23-2022 CNPN Telephone (ORAVON) FLEX WOOTEN ([id number]) 1960 F Date Time Provider Department 06/23/22 NICOLÁS AGGARWAL During your visit today, we recorded the following information about you: Mendy Adams RN 06/23/2022 8:51 AM Signed I left a message for Tessie at [facility] regarding their addendum request. 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] 05/19/2022 Diabetic neuropathy, painful (HCC) [E11.40] 05/19/2022 Acquired valgus deformity of left ankle [M21.07*05/19/2022 Encounter Status:Closed by MENDY ADAMS RN on 06/25/22 [facility] CNOVon 05-19-2022 CNOV Office Visit (ORAVON ) JEFLEX ([id number]) 1960 F Date Time Provider Department 05/19/22 [...] HISTORY Diagnosis Date DVT (deep venous thrombosis) ([facility]) 2013 post knee replacement Fibromyalgia Hemorrhage of gastrointestinal tract, unspecified Hemorrhage of rectum and anus Internal hemorrhoids without mention of complication Other forms of migraine Other unspecified back disorder Pulmonary embolism ([facility]) 2013 PAST SURGICAL HISTORY Procedure Laterality Date [...] left knee -- meniscus repair; Dr. Weller, [facility] SIGMOIDOSCOPY FLX DX W/COLLJ SPEC BR/WA [...] Worsening Previous (more content not included)... Normal [facility] Laboratory - Hematology and Cell countson 05-19-2022 HbA1c (Bld) [Mass fraction] 7.5 % [facility] Work Phone: XR FOOT 3V AP/LAT/OBL [...] noted. IMPRESSION: Remote postoperative and degenerative changes. 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: [employer] Transcribe Date/Time: May 19 2022 10:24A Dictated by : ARACELY COATES MD This examination was interpreted and the report reviewed and electronically signed by: ARACELY COATES MD on May 19 2022 10:25AM EST [id number] Normal [facility] XR FOOT GENERAL 3V AP/LAT/OB L LEFTon 05-19-2022 [facility] Absolute lymphocyte counton 01-31-2022 Lymphocytes Auto (Unsp spec) [#/Vol] 0.87 10*3/uL 0.83-4.51 [facility] Work Phone: Basophil percentageon 2021 Basophil percentage 0 SEEN /hpf [facility] Work Phone: Basophils/100 WBC (Bld) 0.4 % 0-1 [facility] Work Phone: Bilirubin [Mass/Vol] 0.30 mg/dL 0.20-1.00 [facility] Work Phone: Comment on above: For patients on eltr ombopag therapy, use of Dimension [place] TBIL is not recommended. Chloride [Moles/Vol] 103 mmol/L 98-107 [facility] Work Phone: Eosinophils/100 WBC (Bld) 0.0 % 0-5 [facility] Work Phone: Glucose [Mass/Vol] 545 mg/dL 74-106 [facility] Work Phone: Comment on above: Critical Result(s) C alled at: 00:43:30 01/31/2022 by: PERRY IGLESIAS TO RICA STEPHEN. Results read back by same.Glucose result greater than or equal to 200 mg/dLsuggests DIABETES MELLITUS per A.D.A. criteria. Neutrophils (Bld) [#/Vol] 7.0 10*3/uL 2.0-7.7 [facility] Work Phone: Neutrophils/100 WBC (Bld) 78.6 % 47-70 [facility] Work Phone: Potassium [Moles/Vol] 4.6 mmol/L 3.5-5.1 [facility] Work Phone: Comment on above: Moderate Hemolysis, Result may be falsely increased. Protein [Mass/Vol] 7.4 g/dL 6.4-8.2 [facility] Work Phone: Sodium [Moles/Vol] 135 mmol/L 136-145 [facility] Work Phone: WBC (Bld) [#/Vol] 8.9 10*3/uL 4.4-11.0 [facility] Work Phone: Bilirubin Test strip Ql (U)o n 01-31-2022 Bilirubin Ql (U) Negative Negative [facility] Work Phone: Blood erythrocytes count (nu mber/volume)on 01-31-2022 RBC (Bld) [#/Vol] 4.98 10*6/uL 4.2-5.4 [facility] Work Phone: Blood hemoglobin measurement (mass/volume)on 01-31-2022 Hemoglobin (Bld) [Mass/Vol] 13.5 g/dL 12.0-15.0 [facility] Work Phone: Blood lymphocytes/100 leukoc yteson 01-31-2022 Lymphocytes/100 WBC (Bld) 9.8 % 19-41 [facility] Work Phone: Blood monocytes/100 leukocyt eson 01-31-2022 Monocytes/100 WBC (Bld) 6.4 % 0-10 [facility] Work Phone: Blood platelet mean volumeon 01-31-2022 Platelet mean volume (Bld) [Entitic vol] 9.6 fL 6.2-12.0 [facility] Work Phone: Determination of erythrocyte mean corpuscular volume (MCV)on 01-31-2022 MCV (RBC) [Entitic vol] 85.7 fL 81-99 [facility] Work Phone: Glucose Glucometer (BldC) [M ass/Vol]on 01-31-2022 Glucose [Mass/Vol] 399 mg/dL 74-106 [facility] Work Phone: Comment on above: MANAGEMENT OF PATIEN T CARE PER NURSING PROTOCOL HCO3 (BldA) [Moles/Vol]on HCO3 (Bld) [Moles/Vol] 25 mmol/L 22-26 [facility] Work Phone: Hematocrit Auto (Bld) [Volum e fraction]on 01-31-2022 Hematocrit (Bld) [Volume fraction] 42.7 % 37-47 [facility] Work Phone: Ketones Test strip Ql (U)on 01-31-2022 Ketones Ql (U) Negative Negative [facility] Work Phone: [phone] Laboratory - Chemistry and C hemistry - challengeon 01-31-2022 CO2 [Moles/Vol] 26 mmol/L 23-33 [facility] Work Phone: ALP [Catalytic activity/Vol] 89 U/L 45-117 [facility] Work Phone: ALT [Catalytic activity/Vol] 44 U/L 13-56 [facility] Work Phone: [phone] CO2 [Moles/Vol] 26.0 mmol/L 21.0-32.0 [facility] Work Phone: [phone] Globulin (S) [Mass/Vol] 4.0 g/dL 2.2-4.2 [facility] Work Phone: [phone] Urea nitrogen/Creatinine [Mass ratio] 24.0 mg/mg 10-20 [facility] Work Phone: [phone] Laboratory - Hematology and Cell countson 01-31-2022 Erythrocyte distribution width (RBC) [Entitic vol] 46.8 fL 35.1-43.9 [facility] Work Phone: [phone] Erythrocyte distribution width (RBC) [Ratio] 14.9 % 11.6-14.6 [facility] Work Phone: [phone] Immature granulocytes/100 WBC (Bld) 4.800 % 0.0-0.9 [facility] Work Phone: [phone] Comment on above: IG% - Immature Granu locytes (promyelocytes, myelocytes and metamyelocytes) > 1% indicates that a LEFT SHIFT is Present. MCH (RBC) [Entitic mass] 27.1 pg 27.0-32.0 [facility] Work Phone: [phone] Nucleated RBC/100 WBC (Bld) [Ratio] 0 % 0-5 [facility] Work Phone: MCHC Auto (RBC) [Mass/Vol]on 01-31-2022 MCHC (RBC) [Mass/Vol] 31.6 g/dL 32-36 [facility] Work Phone: Mucus LM Ql (Urine sed)on Mucus Ql (Urine sed) 0 SEEN /hpf [facility] Work Phone: Nitrite Test strip Ql (U)on 01-31-2022 Nitrite Ql (U) Negative Negative [facility] Work Phone: No Panel Informationon 01-31 Bed Mix Venous Bld PCO2 at Pat Temp 43.6 mmHg 41-51 [facility] Work Phone: Blood Gas Specimen Type REJI [facility] Work Phone: Venous Blood Base Excess -1 mmol/L -1.0-3.5 [facility] Work Phone: Estimated Creatinine Clearance Calc 39.78 ml/min [facility] Work Phone: Estimated GFR (MDRD) Amer 56 mL/min >60 [facility] Work Phone: Comment on above: GFR Calc Estimated GFR (MDRD) Non-Af Amer 46 mL/min >60 [facility] Work Phone: Comment on above: Non- GFR Calc PO2 venouson 01-31-2022 Oxygen (BldV) [Partial pressure] 42 mm[Hg] 25-40 [facility] Work Phone: Platelets bldon 01-31-2022 Platelets (Bld) [#/Vol] 317 10*3/uL 150-450 [facility] Work Phone: Protein Test strip Ql (U)on 01-31-2022 Protein Ql (U) Negative Negative [facility] Work Phone: Serum or plasma acetone dread urement (mass/volume)on 01-31-2022 Acetone [Mass/Vol] Negative NEG [facility] Work Phone: Serum or plasma albumin dread urement (mass/volume)on 01-31-2022 Albumin [Mass/Vol] 3.4 g/dL 3.2-5.0 [facility] Work Phone: Serum or plasma albumin/glob ulin mass ratioon 01-31-2022 Albumin/Globulin [Mass ratio] 0.8 {ratio} 0.9-2.4 [facility] Work Phone: Serum or plasma calcium dread urement (mass/volume)on 01-31-2022 Calcium [Mass/Vol] 8.7 mg/dL 8.5-10.1 [facility] Work Phone: Serum or plasma creatinine m easurement (mass/volume)on 01-31-2022 Creatinine [Mass/Vol] 1.25 mg/dL 0.55-1.02 [facility] Work Phone: Comment on above: The validity of the calculated GFR & GFRAA in patients over 70 years has not been determined. Clinical correlation is essential. Serum or plasma urea nitroge n measurement (mass/volume)on 01-31-2022 Urea nitrogen [Mass/Vol] 30 mg/dL 7-18 [facility] Work Phone: Squamous epithelial cells de tection in urine sediment by light microscopyon 01-31-2022 Epithelial cells.squamous LM Ql (Urine sed) 0 SEEN /hpf [facility] Work Phone: Thin prep Papanicolaou smear with manual screeningon 01-31-2022 Thin prep Papanicolaou smear with manual screening 20 U/L 15-37 [facility] Work Phone: Comment on above: Moderate Hemolysis, Result may be falsely increased. Thin prep Papanicolaou smear with manual screening 6 5-15 [facility] Work Phone: Urine blood detectionon RBC Ql (U) Negative Negative [facility] Work Phone: RBC Ql (U) 0 SEEN /hpf [facility] Work Phone: Urine clarityon 01-31-2022 Clarity (U) Clear Clear [facility] Work Phone: Urine color determinationon 01-31-2022 Color (U) Straw Yellow [facility] Work Phone: Urine glucose detectionon Glucose Ql (U) 1000 mg/dl Normal [facility] Work Phone: Urine leukocyte esterase det ection by dipstickon 01-31-2022 Leukocyte esterase Test strip Ql (U) Negative Negative [facility] Work Phone: Urine pHon 01-31-2022 pH (U) 6.0 [pH] [facility] Work Phone: Urine sediment bacteria coun t by microscopy (number/high power field)on 01-31-2022 Bacteria LM.HPF (Urine sed) [#/Area] 0 /[HPF] None Seen [facility] Work Phone: Urine specific gravity measu rementon 01-31-2022 Specific gravity (U) [Rel density] 1.015 [facility] Work Phone: Urobilinogen Auto test strip Ql (U)on 01-31-2022 Urobilinogen Ql (U) Normal mg/dl Normal [facility] Work Phone: Vital signson 01-31-2022 Oxygen saturation in Blood 76 % 50-70 [facility] Work Phone: pH measurementon 01-31-2022 pH (Unsp spec) 7.36 [pH] 7.32-7.42 [facility] Work Phone: Absolute lymphocyte counton 01-25-2022 Lymphocytes Auto (Unsp spec) [#/Vol] 1.06 10*3/uL 0.83-4.51 [facility] Work Phone: Basophil percentageon 2021 Basophils/100 WBC (Bld) 0.7 % 0-1 [facility] Work Phone: Chloride [Moles/Vol] 104 mmol/L 98-107 [facility]: Eosinophils/100 WBC (Bld) 2.9 % 0-5 [facility] Work Phone: Glucose [Mass/Vol] 166 mg/dL 74-106 [facility] Work Phone: Comment on above: Fasting Glucose resu lt greater than or equal to 126 mg/dL suggests DIABETES MELLITUS per A.D.A. criteria. Neutrophils (Bld) [#/Vol] 4.2 10*3/uL 2.0-7.7 [facility] Work Phone: Neutrophils/100 WBC (Bld) 68.9 % 47-70 [facility] Work Phone: Potassium [Moles/Vol] 4.1 mmol/L 3.5-5.1 [facility]: Sodium [Moles/Vol] 139 mmol/L 136-145 [facility] Work Phone: WBC (Bld) [#/Vol] 6.1 10*3/uL 4.4-11.0 [facility] Work Phone: Blood erythrocytes count (nu mber/volume)on 01-25-2022 RBC (Bld) [#/Vol] 4.60 10*6/uL 4.2-5.4 [facility] Work Phone: Blood hemoglobin measurement (mass/volume)on 01-25-2022 Hemoglobin (Bld) [Mass/Vol] 12.3 g/dL 12.0-15.0 [facility] Work Phone: [phone] Blood lymphocytes/100 leukoc yteson 01-25-2022 Lymphocytes/100 WBC (Bld) 17.3 % 19-41 [facility] Work Phone: [phone] Blood monocytes/100 leukocyt eson 01-25-2022 Monocytes/100 WBC (Bld) 9.9 % 0-10 [facility] Work Phone: Blood platelet mean volumeon 01-25-2022 Platelet mean volume (Bld) [Entitic vol] 9.2 fL 6.2-12.0 [facility] Work Phone: Determination of erythrocyte mean corpuscular volume (MCV)on 01-25-2022 MCV (RBC) [Entitic vol] 87.8 fL 81-99 [facility] Work Phone: Hematocrit Auto (Bld) [Volum e fraction]on 01-25-2022 Hematocrit (Bld) [Volume fraction] 40.4 % 37-47 [facility] Work Phone: Laboratory - Chemistry and C hemistry - challengeon 01-25-2022 CO2 [Moles/Vol] 31.0 mmol/L 21.0-32.0 [facility] Work Phone: Urea nitrogen/Creatinine [Mass ratio] 11.1 mg/mg 10-20 [facility] Work Phone: Laboratory - Hematology and Cell countson 01-25-2022 Erythrocyte distribution width (RBC) [Entitic vol] 50.0 fL 35.1-43.9 [facility] Work Phone: Erythrocyte distribution width (RBC) [Ratio] 15.7 % 11.6-14.6 [facility] Work Phone: Immature granulocytes/100 WBC (Bld) 0.300 % 0.0-0.9 [facility] Work Phone: Comment on above: IG% - Immature Granu locytes (promyelocytes, myelocytes and metamyelocytes) > 1% indicates that a LEFT SHIFT is Present. MCH (RBC) [Entitic mass] 26.7 pg 27.0-32.0 [facility] Work Phone: Nucleated RBC/100 WBC (Bld) [Ratio] 0 % 0-5 [facility] Work Phone: MCHC Auto (RBC) [Mass/Vol]on 01-25-2022 MCHC (RBC) [Mass/Vol] 30.4 g/dL 32-36 [facility] Work Phone: No Panel Informationon 01-25 D-Dimer Quantitative (PE/DVT) 0.85 FEU/ug/m 0.27-0.49 [facility] Work Phone: Comment on above: RESULTS CALLED TO LAVINIA RODRÍGUEZ RN 01/25/22 1356 Rubina Chairez.REPORT READ BACK BY SAME.D-Dimer ELEVATED (>0.49): Additional studies and clinicalassessments are indicated to conclude diagnosis of:Deep Vein Thrombosis (DVT) or Pulmonary Embolism (PE) Estimated Creatinine Clearance Calc 61.39 ml/min [facility] Work Phone: Estimated GFR (MDRD) Amer 91 mL/min >60 [facility] Work Phone: Comment on above: GFR Calc Estimated GFR (MDRD) Non-Af Amer 75 mL/min >60 [facility] Work Phone: Comment on above: Non- GFR Calc Troponin I High Sensitivity < 3 pg/mL 3.0-54.0 [facility] Work Phone: Comment on above: Please Note: New Selene t Units and Gender Specific Reference Ranges. For more information see Policy Stat Procedure [place] High Sensitivity Troponin (TNIH) and attachments. SARS-CoV-2 & FLU Antigen (Rapid) SARS-CoV-2 (COVID 19) [facility] Work Phone: Platelets bldon 01-25-2022 Platelets (Bld) [#/Vol] 181 10*3/uL 150-450 [facility] Work Phone: Serum or plasma calcium dread urement (mass/volume)on 01-25-2022 Calcium [Mass/Vol] 8.5 mg/dL 8.5-10.1 [facility] Work Phone: Serum or plasma creatinine m easurement (mass/volume)on 01-25-2022 Creatinine [Mass/Vol] 0.81 mg/dL 0.55-1.02 [facility] Work Phone: Comment on above: The validity of the calculated GFR & GFRAA in patients over 70 years has not been determined. Clinical correlation is essential. Serum or plasma urea nitroge n measurement (mass/volume)on 01-25-2022 Urea nitrogen [Mass/Vol] 9 mg/dL 7-18 [facility] Work Phone: Thin prep Papanicolaou smear with manual screeningon 01-25-2022 Thin prep Papanicolaou smear with manual screening 4 5-15 [facility] Work Phone: Culture, urineon 11-12-2021 Bacteria identified Cx Nom (U) Presumptive Lactobacillus sp. [facility] Work Phone: Absolute lymphocyte counton 11-10-2021 Lymphocytes Auto (Unsp spec) [#/Vol] 1.61 10*3/uL 0.83-4.51 [facility] Work Phone: Basophil percentageon 2021 Basophils/100 WBC (Bld) 0.7 % 0-1 [facility] Work Phone: Chloride [Moles/Vol] 102 mmol/L 98-107 [facility] Work Phone: Eosinophils/100 WBC (Bld) 3.1 % 0-5 [facility] Work Phone: Glucose [Mass/Vol] 281 mg/dL 74-106 [facility] Work Phone: Comment on above: Glucose result great er than or equal to 200 mg/dLsuggests DIABETES MELLITUS per A.D.A. criteria. Neutrophils (Bld) [#/Vol] 3.7 10*3/uL 2.0-7.7 [facility] Work Phone: Neutrophils/100 WBC (Bld) 60.3 % 47-70 [facility] Work Phone: Potassium [Moles/Vol] 4.1 mmol/L 3.5-5.1 [facility] Work Phone: Sodium [Moles/Vol] 138 mmol/L 136-145 [facility] Work Phone: WBC (Bld) [#/Vol] 6.1 10*3/uL 4.4-11.0 [facility] Work Phone: Blood erythrocytes count (nu mber/volume)on 11-10-2021 RBC (Bld) [#/Vol] 4.46 10*6/uL 4.2-5.4 [facility] Work Phone: Blood hemoglobin measurement (mass/volume)on 11-10-2021 Hemoglobin (Bld) [Mass/Vol] 11.8 g/dL 12.0-15.0 [facility] Work Phone: Blood lymphocytes/100 leukoc yteson 11-10-2021 Lymphocytes/100 WBC (Bld) 26.3 % 19-41 [facility] Work Phone: Blood monocytes/100 leukocyt eson 11-10-2021 Monocytes/100 WBC (Bld) 9.1 % 0-10 [facility] Work Phone: Blood platelet mean volumeon 11-10-2021 Platelet mean volume (Bld) [Entitic vol] 9.2 fL 6.2-12.0 [facility] Work Phone: Determination of erythrocyte mean corpuscular volume (MCV)on 11-10-2021 MCV (RBC) [Entitic vol] 83.9 fL 81-99 [facility] Work Phone: Hematocrit Auto (Bld) [Volum e fraction]on 11-10-2021 Hematocrit (Bld) [Volume fraction] 37.4 % 37-47 [facility] Work Phone: Laboratory - Chemistry and C hemistry - challengeon 11-10-2021 Magnesium [Mass/Vol] 1.7 mg/dL 1.6-2.6 [facility] Work Phone: CO2 [Moles/Vol] 30.0 mmol/L 21.0-32.0 [facility] Work Phone: Urea nitrogen/Creatinine [Mass ratio] 14.9 mg/mg 10-20 [facility] Work Phone: Laboratory - Hematology and Cell countson 11-10-2021 Erythrocyte distribution width (RBC) [Entitic vol] 50.7 fL 35.1-43.9 [facility] Work Phone: Erythrocyte distribution width (RBC) [Ratio] 16.8 % 11.6-14.6 [facility] Work Phone: Immature granulocytes/100 WBC (Bld) 0.500 % 0.0-0.9 [facility] Work Phone: Comment on above: IG% - Immature Granu locytes (promyelocytes, myelocytes and metamyelocytes) > 1% indicates that a LEFT SHIFT is Present. MCH (RBC) [Entitic mass] 26.5 pg 27.0-32.0 [facility] Work Phone: Nucleated RBC/100 WBC (Bld) [Ratio] 0 % 0-5 [facility] Work Phone: MCHC Auto (RBC) [Mass/Vol]on 11-10-2021 MCHC (RBC) [Mass/Vol] 31.6 g/dL 32-36 [facility] Work Phone: No Panel Informationon 11-10 Thyroid Stimulating Hormone (TSH) 3.14 uIU/mL 0.358-3.74 [facility] Work Phone: Estimated GFR (MDRD) Amer 71 mL/min >60 [facility] Work Phone: Comment on above: GFR Calc Estimated GFR (MDRD) Non-Af Amer 59 mL/min >60 [facility] Work Phone: Comment on above: Non- GFR Calc Nasal Screen MRSA/MSSA [facility] Work Phone: Platelets bldon 11-10-2021 Platelets (Bld) [#/Vol] 261 10*3/uL 150-450 [facility] Work Phone: Serum or plasma albumin dread urement (mass/volume)on 11-10-2021 Albumin [Mass/Vol] 3.4 g/dL 3.2-5.0 [facility] Work Phone: Serum or plasma calcium dread urement (mass/volume)on 11-10-2021 Calcium [Mass/Vol] 9.1 mg/dL 8.5-10.1 [facility] Work Phone: Serum or plasma creatinine m easurement (mass/volume)on 11-10-2021 Creatinine [Mass/Vol] 1.01 mg/dL 0.55-1.02 [facility] Work Phone: Comment on above: The validity of the calculated GFR & GFRAA in patients over 70 years has not been determined. Clinical correlation is essential. Serum or plasma urea nitroge n measurement (mass/volume)on 11-10-2021 Urea nitrogen [Mass/Vol] 15 mg/dL 7-18 [facility] Work Phone: Thin prep Papanicolaou smear with manual screeningon 11-10-2021 Thin prep Papanicolaou smear with manual screening 6 01-10 [facility] Work Phone: Whole blood hemoglobin A1c/t otal hemoglobin ratio (mass fraction)on 11-10-2021 HbA1c (Bld) [Mass fraction] 8.0 % 3.8-5.6 [facility] Work Phone: Comment on above: Normal < 5.7 % Predi abetic 5.7 - 6.4 % Diabetic >or= 6.5 % Please note range changes. Glucose Glucometer (BldC) [M ass/Vol]on 09-25-2021 Glucose [Mass/Vol] 136 mg/dL 70-110 [facility] Work Phone: Comment on above: MANAGEMENT OF PATIEN T CARE PER NURSING PROTOCOL Basophil percentageon 2020 WBC (Bld) [#/Vol] 7.1 10*3/uL 4.4-11.0 [facility] Work Phone: Blood erythrocytes count (nu mber/volume)on 08-07-2021 RBC (Bld) [#/Vol] 4.56 10*6/uL 4.2-5.4 [facility] Work Phone: Blood hemoglobin measurement (mass/volume)on 08-07-2021 Hemoglobin (Bld) [Mass/Vol] 12.0 g/dL 12.0-15.0 [facility] Work Phone: Blood platelet mean volumeon 08-07-2021 Platelet mean volume (Bld) [Entitic vol] 9.9 fL 6.2-12.0 [facility] Work Phone: Determination of erythrocyte mean corpuscular volume (MCV)on 08-07-2021 MCV (RBC) [Entitic vol] 86.8 fL 81-99 [facility] Work Phone: Hematocrit Auto (Bld) [Volum e fraction]on 08-07-2021 Hematocrit (Bld) [Volume fraction] 39.6 % 37-47 [facility] Work Phone: Laboratory - Hematology and Cell countson 08-07-2021 Erythrocyte distribution width (RBC) [Entitic vol] 47.4 fL 35.1-43.9 [facility] Work Phone: Erythrocyte distribution width (RBC) [Ratio] 15.2 % 11.6-14.6 [facility] Work Phone: MCH (RBC) [Entitic mass] 26.3 pg 27.0-32.0 [facility] Work Phone: MCHC Auto (RBC) [Mass/Vol]on 08-07-2021 MCHC (RBC) [Mass/Vol] 30.3 g/dL 32-36 [facility] Work Phone: Platelets bldon 08-07-2021 Platelets (Bld) [#/Vol] 291 10*3/uL 150-450 [facility] Work Phone: Provider Note - ED [...] made to minimize errors. Minor errors in timber selector may be present. Please call if questions.. [...] ill patient: no Electronic Signatures: Silvana Henderson (PAC) (Signed 21-May-2021 22:32) Authored: ED Notes, HPI, PMH, MDM/ED Course, Clinical Impression, Attestation, Chart Review, Scores Last Updated: 21-May-2021 22:32 by Silvana Henderson (PAC) References: 1. Data Referenced From Triage - ED 21-May-2021 20:35 Normal [facility] LAB Venous Duplex Ultra sound DVTon 05-22-2021 [facility] [place] [address] [phone], Vascular Lab Report Lower Venous Duplex Ultrasound Patient Name: FLEX WOOTEN Reading Physician: [id number] Vegas MD Study Date: 05/22/2021 Referring Physician: [id number] SILVANA HENDERSON MRN/PID: [id number] PCP: Accession/Order#: [id number] Report to: Date of : 1960 Technologist: Gladis Campbell RVT Gender: F Technologist 2: Admission Status: Outpatient Location Performed: [facility] Diagnosis/ICD: M79.605-Pain in left leg; M79.89-Left leg swelling Procedure/CPT: 94160 Peripheral venous duplex scan for DVT Limited-84603 Pertinent History: Leg pain and LE Edema. [...] Spontaneous/Phasic Peroneal Yes None PTV Yes None [id number] Hector Vegas MD Final Normal [facility] Triage - EDon 05-21-2021 Triage [...] BMI (kg/m2): 41.391 Calculated BSA (m2) 2.22 [place] Coma Scale: Best Eye Response: (E4) spontaneous Best Motor Response: (M6) obeys commands Best Verbal Response: (V5) oriented [place] Score: 15 Allergies: yes Patient has homicidal [...] vaccine: Immunizations, Active Electronic Signatures: Demetrio Cerda (RN) (Signed 21-May-2021 20:40) Entered: Risk Screens, Pain, Travel History, Chart Review, Scores, Past Medical History Authored: Quick Triage, Risk Screens, Pain, Travel History, Chart Review, Scores, Past Medical History Last Updated: 21-May-2021 20:40 by Demetrio Cerda (RN) Normal [facility] BASIC METABOLIC PANELon 06- Anion gap [Moles/Vol] 13 mmol/L Normal 10 - 20 [facility] Comment on above: Performed By: #### B MP #### [address] [address] Calcium [Mass/Vol] 9.4 mg/dL Normal 8.6 - 10.3 [facility] Comment on above: Performed By: #### B MP #### [address] [address] Chloride [Moles/Vol] 96 mmol/L Low 98 - [address] [facility] Comment on above: Performed By: #### B MP #### [address] [address] Creatinine [Mass/Vol] 0.92 mg/dL Normal 0.50 - 1.05 [facility] Comment on above: Performed By: #### B MP #### [address] [address] GFR- AM. >60 Normal >60 [facility] Comment on above: Result Comment: CALC ULATIONS OF ESTIMATED GFR ARE PERFORMED USING THE MDRD STUDY EQUATION FOR THE IDMS-TRACEABLE CREATININE METHODS. CLIN CHEM 2007;53:766-72 Performed By: #### B MP #### [address] [address] GFR-NON AM. >60 Normal >60 [facility] Comment on above: Performed By: #### B MP #### [address] [address] Glucose [Mass/Vol] 342 mg/dL High 74 - 99 [facility] Comment on above: Performed By: #### B MP #### [address] [address] HCO3 (Bld) [Moles/Vol] 28 mmol/L Normal 21 - 32 [facility] Comment on above: Performed By: #### B MP #### [address] [address] Potassium [Moles/Vol] 4.8 mmol/L Normal 3.5 - 5.3 [facility] Comment on above: Performed By: #### B MP #### [address] [address] Sodium [Moles/Vol] 132 mmol/L Low 136 - 145 [facility] Comment on above: Performed By: #### B MP #### [address] [address] Urea nitrogen [Mass/Vol] 18 mg/dL Normal 6 - 23 [facility] Comment on above: Performed By: #### B MP #### [address] [address] GLUCOSE-POCTon 02-13-2021 Glucose [Mass/Vol] 332 mg/dL High 74 - 99 [facility] Comment on above: Performed By: #### G TAYE #### [address] [address] Provider Note - ED v2on 01-27 Provider [...] Alert and oriented x4, GCS 15 , merchandise flow manager II-XII grossly intact. 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 No meds area captain . Patient does not know meds [...] SIGNS: T PRBP SpO2O2(LPM) %FiO2 Method 13-Feb-2021 03:12:00-6123501/73 92 room air, no respiratory support 13-Feb-2021 01:16:00-7629989/59 92 room air, no respiratory support 13-Feb-2021 00:01:[id number]/76 95 room air, no respiratory support MEDICAL DECISION MAKING/ED COURSE MDM/ED COURSE: Vital signs stable. Blood sugar improved. Patient is ready for discharge after subcu insulin and IV fluids. CLINICAL IMPRESSION Diagnosis/Annotation: ED Dx Name:Hyperglycemia Code:R73.9 Disposition: discharged Type: home ATTESTATION CRITICAL CARE TIME Is this a critically ill patient: no Electronic Signatures: Jesus Amezquita () (Signed 13-Feb-2021 03:17) Authored: ED Notes, HPI, PMH, PE, Results/Vital Signs, MDM/ED Course, Clinical Impression, Attestation, Chart Review, Scores Last Updated: 13-Feb-2021 03:17 by Jesus Amezquita) References: 1. Data Referenced From Triage - ED 13-Feb-2021 00:01 Normal [facility] Risk Screen - Adult Emergenc yon [...] instruction; written material Cultural Considerationsnone Developmental Considerationsnone Mosque Considerationsnone Learning Assessment (Other Learner): Learning Assessment (Other Learner): Other learner availableno Pressure Injury/TB/Substance: Pressure Injury: Do you have a coughno Substance Use Current or Former Historynever: Cigarette/Tobacco, e-Cigarette/Vaping, Alcohol, Street Drugs Admission Risk Screen: Significant IndicatorsComplete CAGE: CAGE: Is this an injured patient at a Trauma Center ([facility]/[place]/[facility]/[place]): no Electronic Signatures: Tigist Yoder (SAM) (Signed 13-Feb-2021 00:07) Authored: Preferred Language, Advanced Directives, Family Violence Adult, Learning Assessment (Patient), Learning Assessment (Other Learner), Pressure Injury/TB/Substance, Pressure Injury, CAGE Last Updated: 13-Feb-2021 00:07 by Tigist Yoder (SAM) [facility] Triage - EDon 02-13-2021 Triage - ED Chart Review: ARRIVAL INFORMATION Mode of Arrival: private vehicle CHIEF COMPLAINT FLEX TABARES is a Female patient with a chief complaint of hyperglycemia (Patient states, My sugar has been up the past 4-5 days. It's so high my meter wont register. I had a steroid shot today around 2pm. No meds area captain . 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 BS at 6pm: 399, 7:30pm: HI, 8:30PM: HI, 9:15pm: 492, 1010pm: 409. In triage: 332). Triage Date/Time: 13-Feb-2021 00:01 ROSALBA: 3V Vital Signs: Temperature: 97.3F ( 36.2C) taken oral Blood Pressure: 125/76 Mean: Heart Rate: 64 Respiratory Rate: 18 Pulse Oximetry: 95% on room air, no respiratory support. [place] Coma Scale: Best Eye Response: (E4) spontaneous Best Motor Response: (M6) obeys commands Best Verbal Response: (V5) oriented [place] Score: 15 Allergies: yes Patient has homicidal [...] Medical History, Active Electronic Signatures: Tigist Yoder (SAM) (Signed 13-Feb-2021 00:06) Entered: Risk Screens, Pain, Travel History, Chart Review, Scores, Past Medical History Authored: Quick Triage, Risk Screens, Pain, Travel History, Chart Review, Scores, Past Medical History Last Updated: 13-Feb-2021 00:06 by Tigist Yoder) [facility] OPERATIVE PROCEDURESon 02-10 OPERATIVE PROCEDURES [facility] OPERATIVE REPORT NAME ACCOUNT SEX AGE ADMIT DISCHARGE PT MED. RECORD# NUMBER DATE DATE TYPE FLEX WOOTEN [id number] F 59 02/08/20 02/08/20 2 Daphney [id number] ROOM: [facility] DATE OF : 1960 DICTATING PHYSICIAN: Pb Drummond DATE OF SURGERY: February 08, 2020 SURGEON: Pb Drummond MD POTATO CHIP SACKING MACHINE OPERATOR: None. ANESTHESIOLOGIST: Daphney Velasquez MD ANESTHETIC: Local [...] of 2 FLEX WOOTEN. Operative Report FLEX WOOTEN : 1960 of [...] Pb Drummond MD 02/08/20 13:43 JOB #: [id number] Transcribed By: yogesh 02/09/20 07:13 Electronically signed by: E-SIGN DR. PB DRUMMOND M.D. 02/11/20 09:08 Page 2 of 2 FLEX WOOTEN. Operative Report Normal [facility] CNOVon 05-09-2019 CNOV Office Visit (RHBATH ) FLEX WOOTEN ([id number]) 1960 F Date Time Provider Department 05/09/19 [...] for [address] Musa at [facility]. Takes oxycodone 2 [...] Diagnosis Date - DVT (deep venous thrombosis) ([facility]) 2014 post knee replacement - Fibromyalgia - Hemorrhage of gastrointestinal tract, unspecified - Hemorrhage of rectum and anus - Internal hemorrhoids without mention of complication - Other forms of migraine - Other unspecified back disorder - Pulmonary embolism ([facility]) 2013 PAST SURGICAL HISTORY Procedure Laterality Date - COLONOSCOP W/ OR W/O [facility] SPEC 2002 Colonoscopy - INTRATHECAL BLOCK - [...] AJ 1:160, CK 272 Negative aside DNA, BETTING CLERK, SSA, SSB, rheumatoid factor, CCP, Acevedo Low [...] Jackie Rojas MD Referring Provider: JACKIE ROJAS [[id number]] Allergies As of Date: 05/09/2019 Noted Allergy [...] Status:Closed by JACKIE ROJAS MD on 05/09/19 [facility] PROGRESSon 05-09-2019 PROGRESS HNO ID: [id number] Author: Jackie Rojas Service: ? Author Type: [...] for [address] Musa at [facility]. Takes oxycodone 2 [...] Diagnosis Date - DVT (deep venous thrombosis) ([facility]) 2014 post knee replacement - Fibromyalgia - Hemorrhage of gastrointestinal tract, unspecified - Hemorrhage of rectum and anus - Internal hemorrhoids without mention of complication - Other forms of migraine - Other unspecified back disorder - Pulmonary embolism ([facility]) 2013 PAST SURGICAL HISTORY Procedure Laterality Date - COLONOSCOP W/ OR W/O [facility] SPEC 2002 Colonoscopy - INTRATHECAL BLOCK [...] AJ 1:160, CK 272 Negative aside DNA, BETTING CLERK, SSA, SSB, rheumatoid factor, CCP, Acevedo Low [...] AJ by IFA Screen SEE BELOW Normal [facility] Comment on above: Result Comment: AJ Positive AB NEGAT Normal range : negative at <1:80 serum dilution. AJ Titer 1:160 AB NEGAT AJ Pattern Homogeneous Performing Laboratory: [facility] [address] [place] [address] Performed By: #### R F1 #### [place] [address] CCP Antibody, IgGon 04-12-20 19 CCP Antibody, IgG <15 Normal <20 [facility] Comment on above: Result Comment: < 20 units: Negative 20-39 units: Weak Positive 40-59 units: Moderate Positive > 60 units: Strong Positive The following results were obtained with the Zopa QUANTA Lite CCP3 IgG VENESSA. Anti-CCP values obtained with different manufacturers' assay methods may not be used interchangeably. The magnitude of the reported IgG levels cannot be correlated to an endpoint titer. Performing Laboratory: [facility] [address] [place] [id number] Performed By: #### R F1 #### [place] [address] DS-DNA Abon 04-12-2019 DS-DNA Ab SEE BELOW Normal [facility] Comment on above: Result Comment: DNA Antibody w/ Conf. <12 <30 IU/mL Negative for ds DNA Antibodies Negative: <30 IU/mL Equivocal: 30-74 IU/mL Positive: >74 IU/mL Performing Laboratory: [facility] [employer] [place] [address] Performed By: #### R F1 #### [facility] [address] [place], [place] [address] BETTING CLERK Antibodyon 04-12-2019 BETTING CLERK Antibody <0.2 Normal <1.0 [facility] Comment on above: Result Comment: Nega tive Negative: <1.0 AI Positive: >0.9 AI Performing Laboratory: [facility] [address] [place] [address] Performed By: #### R F1 #### [facility] [address] [place] [address] Sjogren Antibodieson 019 Sjogren Antibodies SEE BELOW Normal [facility] Comment on above: Result Comment: SSA Antibody <0.2 <1.0 AI Negative Negative: <1.0 AI Positive: >0.9 AI SSB Antibody <0.2 <1.0 AI Negative Negative: <1.0 AI Positive: >0.9 AI Performing Laboratory: [facility] [address] [place] [address] Performed By: #### R F1 #### [place] [address] Acevedo Abs IgGon 04-12-2019 Acevedo Abs IgG SEE BELOW Normal [facility] Comment on above: Result Comment: Sm A ntibody <0.2 <1.0 AI Negative Negative: <1.0 AI Positive: >0.9 AI Performing Laboratory: [facility] [address] [place] [address] Performed By: #### R F1 #### [facility] [address] [place] [address] Total 25-OH Vitamin Don 03-29 Total 25-OH Vitamin D 31.3 ng/mL Normal 30.0-100.0 [facility] Comment on above: Performed By: #### R F1 #### [place] [facility] [address] [place] [address] CNOVon 04-09-2019 CNOV Office Visit (RHBATH ) FLEX WOOTEN ([id number]) 1960 F Date Time Provider Department 04/09/19 10:30 AM JACKIE ROJAS During your visit today, [...] for [address] Musa at [facility]. Takes oxycodone 2 [...] Diagnosis Date - DVT (deep venous thrombosis) ([facility]) 2013 post knee replacement - Fibromyalgia - Hemorrhage of gastrointestinal tract, unspecified - Hemorrhage of rectum and anus - Internal hemorrhoids without mention of complication - Other forms of migraine - Other unspecified back disorder - Pulmonary embolism ([facility]) 2013 PAST SURGICAL HISTORY Procedure Laterality Date - COLONOSCOP W/ OR W/O [facility] SPEC 2002 Colonoscopy - INTRATHECAL BLOCK [...] file Gets together: Not on file Attends mu-ism service: Not on file Active member of [...] Education Completed: 13 years Marital Status: to Ed Je with 2 children History Review: I have [...] follow-up to discuss results. Office Visit on 08/12/19 - XR HAND GENERAL 3V PA/LAT/OBL LT - XR HAND GENERAL 3V PA/LAT/OBL RT - XR FOOT GENERAL 3V AP/LAT/OBL LT - XR FOOT GENERAL 3V AP/LAT/OBL RT - XR SACROILIAC JOINTS 2V AP PELVIS/FERGUESON - XR LUMBAR LIMITED 2V AP/LAT - AJ BY IFA SCREEN - DNA ANTIBODY DS BLD - BETTING CLERK ANTIBODY BLOOD - ACEVEDO IGG AB - [...] Jackie Rojas MD Referring Provider: RICA PADGETT [[id number]] Allergies As of Date: 04/09/2019 Noted Allergy [...] Order(s):AJ BY IFA SCREEN [SQANAIFS] Order #: [id number] FUTURE DNA ANTIBODY DS BLD [SQDNAAB] Order #: [id number] FUTURE BETTING CLERK ANTIBODY BLOOD [SQARNP] Order #: [id number] FUTURE ACEVEDO IGG AB [SQSMAB] Order #: [id number] FUTURE SJOGREN ABS SSA/SSB [SQXSSAB] Order #: [id number] FUTURE RHEUMATOID FACTOR BL [SQRF] Order #: [id number] FUTURE CCP ANTIBODY IGG [SQCCP] Order #: [id number] FUTURE CK CREATINE KINASE [SQCK] Order #: [id number] FUTURE VITAMIN D 25 HYDROXY [SQVITD] Order #: [id number] FUTURE FERRITIN BLD [SQFERR] Order #: [id number] FUTURE IRON + TIBC [SQIRON] Order #: [id number] FUTURE UA WITH CULTURE IF INDICATED [SQUACII] Order #: [id number] FUTURE CREATININE RANDOM UR [SQUCRR] Order #: [id number] FUTURE PROTEIN RANDOM UR [SQUTPR] Order #: [id number] FUTURE CBC + DIFF [SQCBCDIF] Order #: [id number] FUTURE COMP METABOLIC PANEL [SQCMP] Order #: [id number] FUTURE XR HAND GENERAL 3V PA/LAT/OBL LT [[id number]] Order #: [id number] FUTURE XR HAND GENERAL 3V PA/LAT/OBL RT [[id number]] Order #: [id number] FUTURE XR FOOT GENERAL 3V AP/LAT/OBL LT [[id number]] Order #: [id number] FUTURE XR FOOT GENERAL 3V AP/LAT/OBL RT [[id number]] Order #: [id number] FUTURE XR SACROILIAC JOINTS 2V AP PELVIS/FERGUESON [[id number]] Order #: [id number] FUTURE XR LUMBAR LIMITED 2V AP/LAT [3675365] Order #: [id number] FUTURE Prescriptions as of 04/09/2019 Sig: ATENOLOL [...] CK [Catalytic activity/Vol] 272 U/L High 26-192 [facility] Comment on above: Performed By: #### C K #### [place] [facility] [address] [place], [place] [address] Comprehensive Panelon 2018 ALP [Catalytic activity/Vol] 87 U/L Normal 45-117 [facility] Comment on above: Performed By: #### P 14 #### [place] [facility] [address] [place], [place] [address] Bilirubin [Mass/Vol] 0.2 mg/dL Normal 0.2-1.0 [facility] Comment on above: Performed By: #### P 14 #### [place] [facility] [address] [place], [place] [address] Protein [Mass/Vol] 7.0 g/dL Normal 6.4-8.2 [facility] Comment on above: Performed By: #### P 14 #### [facility] [place], [place] [address] ALT [Catalytic activity/Vol] 43 U/L Normal 12-78 [facility] Comment on above: Performed By: #### P 14 #### [facility] [place], [place] [address] Creatinine [Mass/Vol] 0.74 mg/dL Normal 0.51-0.95 [facility] Comment on above: Performed By: #### P 14 #### [facility] [place], [place] [address] AST [Catalytic activity/Vol] 22 U/L Normal 15-37 [facility] Comment on above: Performed By: #### P 14 #### [facility] [place], [place] [address] Albumin [Mass/Vol] 3.6 g/dL Normal 3.4-5.0 [facility] Comment on above: Performed By: #### P 14 #### [facility] [place], [place] [address] Anion gap [Moles/Vol] 9 mmol/L Normal 8-16 [facility] Comment on above: Performed By: #### P 14 #### [facility] [place], [place] [address] CO2 [Moles/Vol] 31 mmol/L Normal 21-32 [facility] Comment on above: Performed By: #### P 14 #### [facility] [place], [place] [address] Urea nitrogen [Mass/Vol] 16 mg/dL Normal 7-18 [facility] Comment on above: Performed By: #### P 14 #### [facility] [place], [place] [address] Calcium [Mass/Vol] 8.9 mg/dL Normal 8.5-10.1 [facility] Comment on above: Performed By: #### P 14 #### [facility] [place], [place] [address] Glucose [Mass/Vol] 124 mg/dL High 70-99 [facility] Comment on above: Performed By: #### P 14 #### [facility] [place], [place] [address] Chloride [Moles/Vol] 100 mmol/L Normal 98-107 [facility] Comment on above: Performed By: #### P 14 #### [facility] [place], [place] [address] Potassium [Moles/Vol] 4.4 mmol/L Normal 3.5-5.1 [facility] Comment on above: Performed By: #### P 14 #### [facility] [place], [place] [address] Sodium [Moles/Vol] 136 mmol/L Normal 136-145 [facility] Comment on above: Performed By: #### P 14 #### [facility] [place], [place] [address] Creatinine,Urineon 9 Creatinine,Urine 71.9 mg/dL Normal [facility] Comment on above: Performed By: #### C EDILBERTO #### [facility] [place], [place] [address] Ferritinon 04-09-2019 Ferritin [Mass/Vol] 11.80 ng/mL Normal 8.00-252.00 [facility] Comment on above: Performed By: #### F ERR #### [facility] [address] [place] [address] Hemogram/Diffon 04-09-2019 Abs Immature Grans 0.03 thou/cmm Normal 0.00-0.05 [facility] Comment on above: Performed By: #### C BCD1 #### [facility] [place] [address] Abs Neut (ANC) 4.15 thou/cmm Normal 1.56-6.13 [facility] Comment on above: Performed By: #### C BCD1 #### [facility] [place] [address] Abs. Baso 0.06 thou/cmm Normal 0.01-0.08 [facility] Comment on above: Performed By: #### C BCD1 #### [facility] [place] [address] Abs. Hood 0.43 thou/cmm Normal 0.27-0.70 [facility] Comment on above: Performed By: #### C BCD1 #### [facility] [place] [address] Basophils/100 WBC (Bld) 0.9 % Normal [facility] Comment on above: Performed By: #### C BCD1 #### [facility] [address] [place] [address] Eosinophils (Bld) [#/Vol] 0.18 thou/cmm Normal 0.00-0.31 [facility] Comment on above: Performed By: #### C BCD1 #### [facility] [address] [place] [address] Eosinophils/100 WBC (Bld) 2.6 % Normal [facility] Comment on above: Performed By: #### C BCD1 #### [place] [address] Erythrocyte distribution width (RBC) [Ratio] 13.4 % Normal 11.7-14.4 [facility] Comment on above: Performed By: #### C BCD1 #### [facility] [address] [place] [address] Hematocrit (Bld) [Volume fraction] 39.8 % Normal 34.1-44.9 [facility] Comment on above: Performed By: #### C BCD1 #### [facility] [address] [place] [address] Hemoglobin (Bld) [Mass/Vol] 12.5 g/dL Normal 11.2-15.7 [facility] Comment on above: Performed By: #### C BCD1 #### [facility] [address] [place] [address] Immature Grans 0.40 % Normal [facility] Comment on above: Performed By: #### C BCD1 #### [facility] [address] [place] [address] Lymphocytes (Bld) [#/Vol] 2.09 thou/cmm Normal 1.18-3.74 [facility] Comment on above: Performed By: #### C BCD1 #### [facility] [address] [place] [address] Lymphocytes/100 WBC (Bld) 30.1 % Normal [facility] Comment on above: Performed By: #### C BCD1 #### [facility] [address] [place] [address] MCH (RBC) [Entitic mass] 26.7 pg Normal 25.6-32.2 [facility] Comment on above: Performed By: #### C BCD1 #### [facility] [address] [place] [address] MCHC (RBC) [Mass/Vol] 31.4 % Low 31.6-34.8 [facility] Comment on above: Performed By: #### C BCD1 #### [facility] [address] [place] [id number] MCV (RBC) [Entitic vol] 85.0 fL Normal 79.4-94.8 [facility] Comment on above: Performed By: #### C BCD1 #### [facility] [address] [place], [place] [address] Monocytes/100 WBC (Bld) 6.2 % Normal [facility] Comment on above: Performed By: #### C BCD1 #### [facility] [address] [place], [place] [address] Platelet mean volume (Bld) [Entitic vol] 9.8 fL Normal 9.4-12.3 [facility] Comment on above: Performed By: #### C BCD1 #### [facility] [place], [place] [address] Platelets (Bld) [#/Vol] 204 thou/cmm Normal 182-369 [facility] Comment on above: Performed By: #### C BCD1 #### [facility] [place], [place] [address] RBC (Bld) [#/Vol] 4.68 mil/cmm Normal 3.93-5.22 [facility] Comment on above: Performed By: #### C BCD1 #### [facility] [address] [place] [address] RDW SD 41.3 fl Normal 36.4-46.3 [facility] Comment on above: Performed By: #### C BCD1 #### [facility] [address] [place], [place] [address] Seg Neutrophil 59.8 % Normal [facility] Comment on above: Performed By: #### C BCD1 #### [facility] [address] [place], [place] [address] WBC (Bld) [#/Vol] 6.94 thou/cmm Normal 3.98-10.04 [facility] Comment on above: Performed By: #### C BCD1 #### [facility] [address] [place], [place] [address] Iron % Saturationon 04-09-20 19 Iron % Saturation 17 % Low 20-55 [facility] Comment on above: Performed By: #### Derrell GUADALUPE #### [facility] [address] [place], [place] [address] Iron Binding Cap. 369 ug/dL Normal 250-450 [facility] Comment on above: Performed By: #### I RONS #### [facility] [place], [place] [address] Iron Serum 61 ug/dL Normal 50-170 [facility] Comment on above: Performed By: #### I RONS #### [facility] [address] [place], [place] [address] MDRD GFRon 04-09-2019 GFR/1.73 sq M predicted among non-blacks MDRD (S/P/Bld) [Vol rate/Area] mL/min/{1.73_m2} Normal >60mL/min/1 .73m2 [facility] Comment on above: Result Comment: If t he patient is , multiply the result by 1.210. Performed By: #### G FR #### [facility] [address] [place], [place] [address] PROGRESSon 04-09-2019 PROGRESS HNO ID: [id number] Author: Jackie Rojas Service: ? Author Type: [...] for [address] Musa at [facility]. Takes oxycodone 2 [...] Diagnosis Date - DVT (deep venous thrombosis) ([facility]) 2013 post knee replacement - Fibromyalgia - Hemorrhage of gastrointestinal tract, unspecified - Hemorrhage of rectum and anus - Internal hemorrhoids without mention of complication - Other forms of migraine - Other unspecified back disorder - Pulmonary embolism ([facility]) 2014 PAST SURGICAL HISTORY Procedure Laterality Date - COLONOSCOP W/ OR W/O [facility] SPEC 2002 Colonoscopy - INTRATHECAL BLOCK - PAST SURGICAL HISTORY OF 2004; updated 2008 calibration constant ( pain pump) inserted into right side of abdomen - PAST SURGICAL HISTORY OF 2005 PLANTAR FASCITIS - PAST SURGICAL HISTORY OF 1998 fusion -- lumbar -- Dr. Melendez - PAST SURGICAL HISTORY OF 2000 SI joint fusion -- Kody George - PAST SURGICAL HISTORY OF 2010 left knee -- meniscus repair; Kandis Guadarrama [...] file Gets together: Not on file Attends mu-ism service: Not on file Active member of [...] Education Completed: 13 years Marital Status: to [place] with 2 children History Review: I have [...] SCREEN - DNA ANTIBODY DS BLD - BETTING CLERK ANTIBODY BLOOD - ACEVEDO IGG AB - [...] 19 Rheumatoid Factor < 10.0 Normal 0.0-15.0 [facility] Comment on above: Performed By: #### R F1 #### [place] [address] Urinalysis, reflexon 019 Reflex Comment see below Normal [facility] Comment on above: Result Comment: Refl ex to culture is not indicated based on established laboratory criteria. Performed By: #### U RIN #### [place] [address] Bacteria LM.HPF (Urine sed) [#/Area] NONE Normal None [facility] Comment on above: Performed By: #### U RIN #### [place] [address] Ep Cells Urine 0.8 /hpf Normal 0.0-5.0 [facility] Comment on above: Performed By: #### U RIN #### [place] [address] Hyaline Cast 0.7 /lpf Normal 0.0-1.0 [facility] Comment on above: Performed By: #### U RIN #### [place] [address] RBC LM.HPF (Urine sed) [#/Area] 0.6 /[HPF] Normal 0.0-5.0 [facility] Comment on above: Performed By: #### U RIN #### [place] [address] WBC, reflex 0.90 /hpf Normal 0.00-5.00 [facility] Comment on above: Performed By: #### U RIN #### [place] [address] Appearance (U) CLEAR Normal [facility] Comment on above: Performed By: #### U RIN #### [address] [place] [address] Bilirubin (U) [Mass/Vol] Negative Normal Negative [facility] Comment on above: Performed By: #### U RIN #### [facility] [address] [place] [address] Color (U) YELLOW Normal [facility] Comment on above: Performed By: #### U RIN #### [facility] [address] [place] [address] Glucose Ql (U) Negative Normal Negative [facility] Comment on above: Performed By: #### U RIN #### [facility] [address] [place] [address] Hemoglobin,Urine Negative Normal Negative [facility] Comment on above: Performed By: #### U RIN #### [facility] [place] [address] Ketone Urine Negative Normal Negative [facility] Comment on above: Performed By: #### U RIN #### [facility] [place] [address] Leukocyte esterase Test strip Ql (U) TRACE Abnormal Negative [facility] Comment on above: Performed By: #### U RIN #### [place] [address] Nitrite reflex Negative Normal Negative [facility] Comment on above: Performed By: #### U RIN #### [place] [address] pH (U) 5.0 [pH] Normal 5.0-8.0 [facility] Comment on above: Performed By: #### U RIN #### [place] [address] Protein (U) [Mass/Vol] Negative Normal Negative [facility] Comment on above: Performed By: #### U RIN #### [place] [address] Specific [place], Ur 1.017 Normal 1.005-1.030 [facility] Comment on above: Performed By: #### U RIN #### [place] [address] Urobilinogen,Ur 0.2 EU/dL Normal 0.2-1.0 [facility] Comment on above: Performed By: #### U RIN #### [facility] [address] [place] [address] Urine Proteinon 04-09-2019 Protein Ql (U) < 5.0 Normal 0.0-11.9 [facility] Comment on above: Performed By: #### U P #### [facility] [place] [address] XR FOOT 3V AP/LAT/OBL LTon 0 04-09-2019 [...] degenerative arthritis at the first MTP joints. 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: [email or web address] Transcribe Date/Time: Apr 12 2019 2:06P Dictated by : YANETH PATEL MD This examination was interpreted and the report reviewed and electronically signed by: YANETH PATEL MD on Apr 12 2019 2:08PM EST Normal [facility] XR FOOT 3V AP/LAT/OBL RTon 0 04-09-2019 [...] degenerative arthritis at the first MTP joints. 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: JUANITA Transcribe Date/Time: Apr 12 2019 2:06P Dictated by : YANETH PATEL MD This examination was interpreted and the report reviewed and electronically signed by: YANETH PATEL MD on Apr 12 2019 2:08PM EST Normal [facility] [place] [facility] XR HAND 3V PA/LAT/OBL LTon 0 [...] no abnormal calcifications. IMPRESSION: Within normal limits. 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: JUANITA Transcribe Date/Time: Apr 12 2019 2:04P Dictated by : YANETH PATLE MD This examination was interpreted and the report reviewed and electronically signed by: YANETH PATEL MD on Apr 12 2019 2:06PM EST Normal [facility] [place] [place] [facility] XR HAND 3V PA/LAT/OBL RTon 0 04-09-2019 [...] no abnormal calcifications. IMPRESSION: Within normal limits. 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: [email or web address] Transcribe Date/Time: Apr 12 2019 2:04P Dictated by : YANETH PATEL MD This examination was interpreted and the report reviewed and electronically signed by: YANETH PATEL MD on Apr 12 2019 2:06PM EST Normal [facility] XR LUMBAR 2V AP/LATon 2018 XR LUMBAR [...] IMPRESSION: Scoliosis, degenerative spondylosis, and postoperative changes. 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: [facility] Transcribe Date/Time: Apr 12 2019 2:09P Dictated by : YANETH PATEL MD This examination was interpreted and the report reviewed and electronically signed by: YANETH PATEL MD on Apr 12 2019 2:11PM EST Normal [facility] XR SI JTS 2V AP PELV/FERGUSO Non [...] degenerative changes at the right sacroiliac joint. 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: [employer] Transcribe Date/Time: Apr 12 2019 2:08P Dictated by : YANETH PATEL MD This examination was interpreted and the report reviewed and electronically signed by: YANETH PATEL MD on Apr 12 2019 2:09PM EST Normal [facility] Office Visit: Annualon 07-25 Dietary management education, guidance, and counseling (procedure) yes Invalid Interpretation Code [facility] Documentation of current medications (procedure) Done Invalid Interpretation Code [facility] Tobacco smoking status NHIS Never Invalid Interpretation Code [facility] Tobacco use CPHS Never smoker Invalid Interpretation Code [facility] Lab Report: Basic Metabolic Profile (BMP)on 12-09-2016 Anion gap 10 mmol/L Invalid Interpretation Code 5-15 [facility] BUN/Creatinine Ratio 18.5 RATIO Invalid Interpretation Code 10-20 [facility] Calcium 8.9 mg/dL Invalid Interpretation Code 8.5-10.1 [facility] Chloride 98 mmol/L Invalid Interpretation Code 98-107 [facility] CO2 32.0 mmol/L Invalid Interpretation Code 21.0-32.0 [facility] Creatinine 0.81 mg/dL Invalid Interpretation Code 0.55-1.02 [facility] eGFR (non-black) 77 mL/min/{1.73_m2} Invalid Interpretation Code >60 [facility] eGFR (non-black) 93 mL/min/{1.73_m2} Invalid Interpretation Code >60 [facility] Glucose mass conc 121 mg/dL High 70-110 [facility] Potassium molar conc 4.3 mmol/L Invalid Interpretation Code 3.5-5.1 [facility] Sodium 140 mmol/L Invalid Interpretation Code 136-145 [facility] Urea nitrogen 15 mg/dL Invalid Interpretation Code 7-18 [facility] Lab Report: Lipaseon 017 LIPASE 157 U/L Invalid Interpretation Code 73-393 [facility] Lab Report: Liver Profileon 12-09-2016 Alanine aminotransferase (ALT) 58 U/L Invalid Interpretation Code 12-78 [facility] Albumin 3.7 g/dL Invalid Interpretation Code 3.4-5.0 [facility] Alkaline phosphatase (ALP) 87 U/L Invalid Interpretation Code 45-117 [facility] Aspartate aminotransferase (AST) 37 U/L Invalid Interpretation Code 15-37 [facility] Bilirubin (direct) 0.07 mg/dL Invalid Interpretation Code 0.00-0.30 [facility] Bilirubin (total) 0.30 mg/dL Invalid Interpretation Code 0.20-1.00 [facility] Globulin 3.5 g/dL Invalid Interpretation Code 2.3-3.5 [facility] Protein 7.2 g/dL Invalid Interpretation Code 6.4-8.2 [facility] Office Visit: RUQ pain, dila mary anne CBD, no GS on U/Son 12-09-2016 Fall risk assessment No Invalid Interpretation Code [facility] Office Visit: RUQ pain, dila mary anne CBD, no GS on U/Son 08-29-2015 Breast Mammogram screening Normal Bilateral Invalid Interpretation Code [facility] General categories [Interpretation] of Cervical or vaginal smear or scraping by Cyto stain Normal Invalid Interpretation Code [facility] No Panel Informationon 03-04 [facility] Vital Signs Date Time Vital Sign Value Performing Clinician Facility 09-06-2023 13:50-0500 Body temperature 97 [degF] Renita Thomae DO Work Phone: [facility] 09-06-2023 13:50-0500 Diastolic blood pressure 62 mm[Hg] Renita Thomae DO Work Phone: [facility] 09-06-2023 13:50-0500 Heart rate 59 /min Renita [employer] DO Work Phone: [facility] 09-06-2023 13:50-0500 Respiratory rate 16 /min Renita [employer] DO Work Phone: [facility] 09-06-2023 13:50-0500 SaO2% (BldA) [Mass fraction] 94 % Renita Mijares DO Work Phone: [facility] 09-06-2023 13:50-0500 Systolic blood pressure 111 mm[Hg] Renita Mijares DO Work Phone: [facility] 02-24-2023 15:16-0400 Body temperature 97.7 [degF] DR PJ MAHONEY MD [facility] 02-24-2023 15:16-0400 Diastolic Blood Pressure Non-Invasive [address] PJ MAHONEY MD [facility] 02-24-2023 15:16-0400 Heart rate 66 /min DR PJ MAHONEY MD [facility] 02-24-2023 15:16-0400 Reason For Taking VItal Signs DR PJ MAHONEY MD [facility] 02-24-2023 15:16-0400 Respiratory rate 16 /min DR PJ MAHONEY MD [facility] 02-24-2023 15:16-0400 Systolic Blood Pressure Non-Invasive [address] PJ MAHONEY MD [facility] 02-24-2023 11:13-0400 Body temperature 98.42 [degF] DR PJ MAHONEY MD [facility] 02-24-2023 11:13-0400 Diastolic Blood Pressure Non-Invasive [address] PJ MAHONEY MD [facility] 02-24-2023 11:13-0400 Heart rate 71 /min DR PJ MAHONEY MD [facility] 02-24-2023 11:13-0400 Reason For Taking VItal Signs DR PJ MAHONEY MD [facility] 02-24-2023 11:13-0400 Respiratory rate 16 /min DR PJ MAHONEY MD [facility] 02-24-2023 11:13-0400 Systolic Blood Pressure Non-Invasive [address] PJ MAHONEY MD [facility] 02-24-2023 09:07-0400 Heart rate 84 /min DR PJ MAHONEY MD [facility] 02-24-2023 08:58-0400 Diastolic Blood Pressure Non-Invasive [address] PJ MAHONEY MD [facility] 02-24-2023 08:58-0400 Systolic Blood Pressure Non-Invasive [address] PJ MAHONEY MD [facility] 02-24-2023 08:12-0400 Body temperature 97.88 [degF] DR PJ MAHONEY MD [facility] 02-24-2023 08:12-0400 Heart rate 74 /min DR PJ MAHONEY MD [facility] 02-24-2023 08:12-0400 Reason For Taking VItal Signs DR PJ MAHONEY MD [facility] 02-24-2023 08:12-0400 Respiratory rate 18 /min DR PJ MAHONEY MD [facility] 02-23-2023 22:43-0400 Heart rate 60 /min DR PJ MAHONEY MD [facility] 02-23-2023 20:04-0400 Heart rate 64 /min DR PJ MAHONEY MD [facility] 02-23-2023 14:32-0400 Heart rate 82 /min DR PJ MAHONEY MD [facility] 02-23-2023 11:40-0400 Heart rate 70 /min DR PJ MAHONEY MD [facility] 02-22-2023 14:40-0400 Body height 162.[address] PJ MAHONEY MD [facility] 02-22-2023 14:40-0400 Body weight [address] PJ MAHONEY MD [facility] 02-22-2023 14:40-0400 Body weight 41.61 kg/m2 DR PJ MAHONEY MD [facility] 02-22-2023 13:15-0400 Body temperature 96.26 [degF] DR PJ MAHONEY MD [facility] 02-22-2023 12:04-0400 Body temperature 97.7 [degF] DR PJ MAHONEY MD [facility] 02-22-2023 12:00-0400 Respiratory Rate - Anes 3 br/min DR PJ MAHONEY MD [facility] 02-22-2023 11:55-0400 Respiratory Rate - Anes 26 br/min DR PJ MAHONEY MD [facility] 02-22-2023 11:50-0400 Body temperature 96.84 [degF] DR PJ MAHONEY MD [facility] 02-22-2023 11:50-0400 Respiratory Rate - Anes 23 br/min DR PJ MAHONEY MD [facility] 02-22-2023 11:45-0400 Body temperature 96.85 [degF] DR PJ MAHONEY MD [facility] 02-22-2023 11:40-0400 Body temperature 96.89 [degF] DR PJ MAHONEY MD [facility] 02-22-2023 09:31-0400 Body height 162.[address] PJ MAHONEY MD [facility] 02-22-2023 09:31-0400 Body temperature 98.42 [degF] DR PJ MAHONEY MD [facility] 02-22-2023 09:31-0400 Body weight [address] PJ MAHONEY MD [facility] 02-03-2023 13:58-0400 Blood Pressure Cuff Size DR PJ MAHONEY MD [facility] 02-03-2023 13:58-[address] PJ MAHONEY MD [facility] 02-03-2023 13:58-[address] PJ MAHONEY MD [facility] 02-03-2023 13:58-0400 Body height 162.[address] PJ MAHONEY MD [facility] 02-03-2023 13:58-0400 Body weight [address] PJ MAHONEY MD [facility] 02-03-2023 13:58-0400 Body weight 41.61 kg/m2 DR PJ MAHONEY MD [facility] 02-03-2023 13:58-0400 Diastolic Blood Pressure Non-Invasive [address] PJ MAHONEY MD [facility] 02-03-2023 13:58-0400 Heart rate 73 /min DR PJ MAHONEY MD [facility] 02-03-2023 13:58-0400 Systolic Blood Pressure Non-Invasive [address] PJ MAHONEY MD [facility] 09-17-2022 18:10-0500 Body temperature 98 [degF] Dr. Rica Padgett Work Phone: [facility] 09-17-2022 18:10-0500 Diastolic blood pressure 65 mm[Hg] Dr. Rica Padgett Work Phone: [facility] 09-17-2022 18:10-0500 Heart rate 75 /min Dr. Rica Padgett Work Phone: [facility] 09-17-2022 18:10-0500 Respiratory rate 16 /min Dr. Rica Padgett Work Phone: [facility] 09-17-2022 18:10-0500 SaO2% (BldA) [Mass fraction] 901 % Dr. Rica Padgett Work Phone: [facility] 09-17-2022 18:10-0500 Systolic blood pressure 119 mm[Hg] Dr. Rica Padgett Work Phone: [facility] 09-17-2022 11:45-0500 Body height 162.[address] Rica Padgett Work Phone: [facility] 09-17-2022 11:45-0500 Body weight 121.[address] Rica Padgett Work Phone: [facility] 09-16-2022 19:21-0500 Inhaled oxygen flow rate 2 L/min Dr. Rica Padgett Work Phone: [facility] 09-16-2022 19:15-0500 Body mass index (BMI) [Ratio] 46.1 kg/m2 Dr. Rica Padgett Work Phone: [facility] 09-13-2022 10:21-0500 Body mass index (BMI) [Ratio] 42.7 kg/m2 Dr. Rica Padgett Work Phone: [facility] 09-13-2022 10:21-0500 Body temperature 95.4 [degF] Dr. Rica Padgett Work Phone: [facility] 09-13-2022 10:21-0500 Body weight 116.[address] Rica Padgett Work Phone: [facility] 09-13-2022 10:21-0500 Diastolic blood pressure 80 mm[Hg] Dr. Rica Padgett Work Phone: [facility] 09-13-2022 10:21-0500 Heart rate 84 /min Dr. Rica Padgett Work Phone: [facility] 09-13-2022 10:21-0500 Respiratory rate 20 /min Dr. Rica Padgett Work Phone: [facility] 09-13-2022 10:21-0500 SaO2% (BldA) [Mass fraction] 90 % Dr. Rica Padgett Work Phone: [facility] 09-13-2022 10:21-0500 Systolic blood pressure 137 mm[Hg] Dr. Rica Padgett Work Phone: [facility] 05-19-2022 14:14-0400 Body temperature 95.3 [degF] Dr. Rica Padgett Work Phone: [facility] Work Phone: 05-19-2022 14:14-0400 Diastolic blood pressure 90 mm[Hg] Dr. Rica Padgett Work Phone: [facility] Work Phone: 05-19-2022 14:14-0400 Heart rate 81 /min Dr. Rica Padgett Work Phone: [facility] Work Phone: 05-19-2022 14:14-0400 Respiratory rate 20 /min Dr. Rica Padgett Work Phone: [facility] Work Phone: 05-19-2022 14:14-0400 SaO2% (BldA) [Mass fraction] 91 % Dr. Rica Padgett Work Phone: [facility] Work Phone: 05-19-2022 14:14-0400 Systolic blood pressure 156 mm[Hg] Dr. Rica Padgett Work Phone: [facility] Work Phone: 03-29-2022 09:18-0400 Body mass index (BMI) [Ratio] 42.9 kg/m2 Dr. Rica Padgett Work Phone: [facility] Work Phone: 03-29-2022 09:18-0400 Body temperature 96.3 [degF] Dr. Rica Padgett Work Phone: [facility] Work Phone: 03-29-2022 09:18-0400 Body weight 117.[address] Rica Padgett Work Phone: [facility] Work Phone: 03-29-2022 09:18-0400 Diastolic blood pressure 80 mm[Hg] Dr. Rica Padgett Work Phone: [facility] Work Phone: 03-29-2022 09:18-0400 Heart rate 80 /min Dr. Rica Padgett Work Phone: [facility] Work Phone: 03-29-2022 09:18-0400 Respiratory rate 20 /min Dr. Rica Padgett Work Phone: [facility] Work Phone: 03-29-2022 09:18-0400 SaO2% (BldA) [Mass fraction] 95 % Dr. Rica Padgett Work Phone: [facility] Work Phone: 03-29-2022 09:18-0400 Systolic blood pressure 162 mm[Hg] Dr. Rica Padgett Work Phone: [facility] Work Phone: 01-31-2022 03:58-0400 Diastolic blood pressure 82 mm[Hg] Dr. Rica Padgett Work Phone: [facility] Work Phone: 01-31-2022 03:58-0400 Heart rate 53 /min Dr. Rica Padgett Work Phone: [facility] Work Phone: 01-31-2022 03:58-0400 Respiratory rate 16 /min Dr. Rica Padgett Work Phone: [facility] Work Phone: 01-31-2022 03:58-0400 SaO2% (BldA) [Mass fraction] 98 % Dr. Rica Padgett Work Phone: [facility] Work Phone: 01-31-2022 03:58-0400 Systolic blood pressure 114 mm[Hg] Dr. Rica Padgett Work Phone: [facility] Work Phone: 01-30-2022 23:11-0400 Body height 162.[address] Rica Padgett Work Phone: [facility] Work Phone: 01-30-2022 23:11-0400 Body mass index (BMI) [Ratio] 42 kg/m2 Dr. Rica Padgett Work Phone: [facility] Work Phone: 01-30-2022 23:11-0400 Body temperature 97.9 [degF] Dr. Rica Padgett Work Phone: [facility] Work Phone: 01-30-2022 23:11-0400 Body weight 111.[address] Rica Padgett Work Phone: [facility] Work Phone: 01-25-2022 15:13-0400 Diastolic blood pressure 89 mm[Hg] Dr. Rica Padgett Work Phone: [facility] Work Phone: 01-25-2022 15:13-0400 Heart rate 78 /min Dr. Rica Padgett Work Phone: [facility] Work Phone: 01-25-2022 15:13-0400 Respiratory rate 18 /min Dr. Rica Padgett Work Phone: [facility] Work Phone: 01-25-2022 15:13-0400 SaO2% (BldA) [Mass fraction] 97 % Dr. Rica Padgett Work Phone: [facility] Work Phone: 01-25-2022 15:13-0400 Systolic blood pressure 143 mm[Hg] Dr. Rica Padgett Work Phone: [facility] Work Phone: 01-25-2022 12:56-0400 Body height 162.[address] Rica Padgett Work Phone: [facility] Work Phone: 01-25-2022 12:56-0400 Body mass index (BMI) [Ratio] 42.9 kg/m2 Dr. Rica Padgett Work Phone: [facility] Work Phone: 01-25-2022 12:56-0400 Body temperature 98.2 [degF] Dr. Rica Padgett Work Phone: [facility] Work Phone: 01-25-2022 12:56-0400 Body weight 113.[address] Rica Padgett Work Phone: [facility] Work Phone: 09-25-2021 14:30-0500 Body temperature 98.5 [degF] Dr. Rica Padgett Work Phone: [facility] Work Phone: 09-25-2021 14:30-0500 Diastolic blood pressure 78 mm[Hg] Dr. Rica Padgett Work Phone: [facility] Work Phone: 09-25-2021 14:30-0500 Heart rate 68 /min Dr. Rica Padgett Work Phone: [facility] Work Phone: 09-25-2021 14:30-0500 Respiratory rate 16 /min Dr. Rica Padgett Work Phone: [facility] Work Phone: 09-25-2021 14:30-0500 SaO2% (BldA) [Mass fraction] 93 % Dr. Rica Padgett Work Phone: [facility] Work Phone: 09-25-2021 14:30-0500 Systolic blood pressure 144 mm[Hg] Dr. Rica Padgett Work Phone: [facility] Work Phone: 09-25-2021 09:44-0500 Body height 162.[address] Rica Padgett Work Phone: [facility] Work Phone: 09-25-2021 09:44-0500 Body mass index (BMI) [Ratio] 42.9 kg/m2 Dr. Rica Padgett Work Phone: [facility] Work Phone: 09-25-2021 09:44-0500 Body weight 113.[address] Rica Padgett Work Phone: [facility] Work Phone: 05-22-2021 01:30-0400 Diastolic blood pressure 66 mm[Hg] Rica Padgett Other Phone: [facility] 05-22-2021 01:30-0400 Heart rate 72 /min Rica Padgett Other Phone: [facility] 05-22-2021 01:30-0400 Respiratory rate 16 /min Rica Padgett Other Phone: [facility] 05-22-2021 01:30-0400 SaO2% (BldA) [Mass fraction] 96 % Ricagavin Padgett Other Phone: [facility] 05-22-2021 01:30-0400 Systolic blood pressure 138 mm[Hg] Rica Amishys Other Phone: [facility] 05-21-2021 22:35-0400 Body height 162.5 cm Rica Amishys Other Phone: [facility] 05-21-2021 22:35-0400 Body temperature 97.16 [degF] Rica Amishys Other Phone: [facility] 05-21-2021 22:35-0400 Body weight 109.3 kg Rica Amishys Other Phone: [facility] 02-13-2021 05:12-0400 Diastolic blood pressure 73 mm[Hg] Rica Amishys Other Phone: [facility] 02-13-2021 05:12-0400 Heart rate 55 /min Rica Amishys Other Phone: [facility] 02-13-2021 05:12-0400 Respiratory rate 18 /min Rica Padgett Other Phone: [facility] 02-13-2021 05:12-0400 SaO2% (BldA) [Mass fraction] 92 % Rica Padgett Other Phone: [facility] 02-13-2021 05:12-0400 Systolic blood pressure 143 mm[Hg] Rica Padgett Other Phone: [facility] 02-13-2021 02:01-0400 Body temperature 97.16 [degF] Rica Padgett Other Phone: [facility] 07-25-2017 14:03-0500 BMI (Body Mass Index) 39.79 kg/m2 Azra Gee NP [facility] 07-25-2017 14:03-0500 BP Diastolic 78 mm[Hg] Azra Gee SEDIMENTATIONIST [facility] 07-25-2017 14:03-0500 BP Systolic 128 mm[Hg] Azra Gee SEDIMENTATIONIST [facility] 07-25-2017 14:03-0500 Height 161.93 cm Azra Gee NP [facility] 07-25-2017 14:03-0500 Weight 104.33 kg Azra Gee NP [facility] 12-09-2016 11:09-0400 Body Temperature 98 [degF] Azra Gee NP [facility] 12-09-2016 11:09-0400 BSA (Body Surface Area) 2.11 m2 Azra Gee NP [facility] 12-09-2016 11:09-0400 Pulse (Heart Rate) 86 /min Azra Gee NP [facility] 12-09-2016 11:09-0400 Respiratory Rate 18 /min Azra Gee NP [facility] Encounters Encounter Date Encounter Type Care Provider Facility Start: 03-28-2025 ambulatory Rica Malys Facility:[facility] Start: 03-24-2025 ambulatory Rica Malys Facility:[facility] Start: 03-21-2025 End: 03-21-2025 ambulatory Rica Malys Facility:[facility] Start: 03-15-2025 ambulatory Rica Malys [facility] Start: 03-15-2025 End: 03-18-2025 Evaluation and management of inpatient Rica Malys Facility:[facility] Start: 03-11-2025 End: 03-11-2025 ambulatory Pj L Seese Facility:[facility] Start: 02-18-2025 ambulatory Marissa Joseph Facility :[facility] Start: 02-09-2025 End: 02-09-2025 ambulatory Rafi Moralesing Facility:[facility] Start: 02-04-2025 End: 02-04-2025 ambulatory Rica Malys Facility:[facility] Start: 01-07-2025 End: 01-07-2025 ambulatory Pj L Seese [facility] Start: 01-03-2025 End: 01-03-20[facility] Start: 11-29-2024 ambulatory Rica Malys [facility] Start: 11-29-2024 End: 11-29-2024 ambulatory Rica Malys Facility:[facility] Start: 11-20-2024 End: 11-20-2024 Emergency department patient visit Rica Malys Facility:[facility] Start: 11-19-2024 End: 11-19-2024 ambulatory Marissa Joseph Facility:[facility] Start: 10-15-2024 End: 10-15-2024 Emergency department patient visit Rica Malys Facility:[facility] Start: 10-12-2024 End: 10-12-2024 Emergency department patient visit Rica Malys Facility:[facility] Start: 10-08-2024 End: 10-08-2024 ambulatory Marissa Joseph Facility:[facility] Start: 09-03-2024 End: 09-03-2024 ambulatory Rica Malys Facility:[facility] Start: 07-27-2024 End: 07-28-2024 ambulatory David eller Facility:[facility] Start: 07-13-2024 End: 07-13-2024 ambulatory Rica Malys Facility:[facility] Start: 06-06-2024 End: 06-06-2024 ambulatory Rica Malys Facility:[facility] Start: 06-01-2024 End: 06-01-2024 ambulatory Rica Padgett Facility:[facility] Start: 05-14-2024 ambulatory Marissa Joseph Facility :[facility] Start: 05-07-2024 End: 05-07-2024 ambulatory Pj Lee Facility:[facility] Start: 04-02-2024 End: 04-02-2024 ambulatory Marissa Ruiz Facility:[facility] Start: 11-03-2023 Telephone encounter Yovanny Rogers i, MD Work Phone: [facility] Endocrinology Comment on above: Referral (Confirm re ceipt of referral faxed 11/01/23) Start: 09-06-2023 End: 09-07-2023 ambulatory [facility] Start: 09-06-2023 End: 09-06-2023 Subsequent hospital visit by physician Renita Mijares DO Work Phone: [facility] Comment on above: Diarrhea, unspecifie d type (Primary Dx) Start: 02-22-2023 End: 02-24-2023 ambulatory PJ MAHONEY Facility:[facility] Start: 02-22-2023 End: 02-24-[address] PJ MAHONEY MD [facility] Start: 02-03-2023 End: 02-04-2023 ambulatory PJ MAHONEY Facility:[facility] Start: 02-03-2023 End: 02-04-2023 ambulatory PJ MAHONEY Facility:[facility] Start: 02-03-2023 End: 02-03-[address] PJ MAHONEY MD [facility] Start: 02-03-2023 End: 02-03-[address] PJ MAHONEY MD [facility] Start: 10-06-2022 Telephone encounter Tre Anderson DO Work Phone: [facility] Comment on above: Page Out Start: 09-27-2022 Orders Only Nicolás Swenson Work Phone: Orthopaedics Comment on above: 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 Rica Padgett Work Phone: [facility] Work Phone: Start: 09-20-2022 End: 09-20-[address] Rica Padgett Work Phone: [facility]-Laboratory Start: 09-17-2022 Non-patient / Non-visit Dr. Angela Padgett Work Phone: [facility] Start: 09-17-2022 Non-patient / Non-visit Dr. Angela Padgett Work Phone: [facility] Phys[facility] Start: 09-16-2022 Non-patient / Non-visit Dr. Angela Padgett Work Phone: [facility] Start: 09-16-2022 End: 09-17-2022 Evaluation and management of inpatient Dr. Rica Padgett Work Phone: [facility]-Medical Surgical 3 Start: 09-15-2022 End: 09-15-[address] Rica Padgett Work Phone: [facility] Work Phone: Start: 09-15-2022 End: 09-15-[address] Rica Padgett Work Phone: [facility]-Cardiovascular Services Start: 09-13-2022 End: 09-13-[address] Rica Padgett Work Phone: [facility] Endocrinology Start: 07-07-2022 End: 07-07-[address] Rica Padgett Work Phone: [facility] Work Phone: Start: 07-07-2022 End: 07-07-[address] Rica Padgett Work Phone: [facility]Labor[facility] Start: 06-23-2022 Telephone encounter Nicolás velazquez MD Work Phone: Orthopaedics Comment on above: Question Start: 05-19-2022 End: 05-19-[address] Rica Padgett Work Phone: [facility] Endocrinology Start: 05-19-2022 End: 05-19-[address] [facility] Facility:[facility] Start: 05-19-2022 End: 05-19-2022 Patient encounter procedure Nicolás Aggarwal MD Work Phone: Orthopaedics Comment on above: Pes planus of left f oot (Primary Dx); Primary osteoarthritis of left foot; Diabetic neuropathy, painful (HCC); Acquired valgus deformity of left ankle Start: 05-19-2022 End: 05-19-2022 Subsequent hospital visit by physician [facility] Rej Work Phone: Radiology Comment on above: Pain [R52] Start: 03-29-2022 End: 03-29-[address] Rica Padgett Work Phone: [facility] Endocrinology Start: 01-30-2022 End: 01-31-2022 Emergency department patient visit Dr. Rica Padgett Work Phone: [facility]-Emergency Department Start: 01-25-2022 End: 01-25-2022 Emergency department patient visit Dr. Rica Padgett Work Phone: [facility]Emergency Department Start: 11-12-2021 End: 11-12-[address] Rica Padgett Work Phone: [facility] Start: 11-11-2021 End: 11-11-[address] Rica Padgett Work Phone: [facility] Start: 11-10-2021 End: 11-10-[address] Rica Padgett Work Phone: [facility]-Pre-Admission Testing Start: 11-10-2021 Non-patient / Non-visit Dr. Angela Padgett Work Phone: [facility] Start: 09-25-2021 End: 09-25-2021 Admission to same day surgery center Dr. Rica Padgett Work Phone: [facility]Surgical Day Care Start: 08-07-[address] Rica Padgett Work Phone: [facility] Start: 05-21-2021 End: 05-22-2021 Emergency department patient visit Silvana Henderson [facility] Emergency 11 Start: 02-13-2021 End: 02-13-2021 Emergency department patient visit Jesus Amezquita [facility] Emergency 11 Start: 02-08-2020 End: 02-08-2020 Patient encounter procedure PB DRUMMOND [facility] Start: 02-07-2015 End: 02-07-2015 Telephone encounter Azra Marlen Work Phone: OB/Gynecology Comment on above: Yearly Exam With Jermaine dubon Procedures Date Procedure Procedure Detail Performing Clinician Start: 09-06-2023 DISCHARGE PATIENT RENITA BETSY Start: 09-06-2023 PLACE IN OUTPATIENT/HOSPITAL AMBULATORY SURGERY RENITA THOMAE Start: 09-06-2023 PULSE OXIMETRY, SPOT DA LE THOMAE Start: 09-06-2023 Colon ca scrn not hi rsk ind Renita R Thomae DO Work Phone: Start: 09-06-2023 PULSE OXIMETRY, SPOT Da le R Thomae DO Work Phone: Start: 09-06-2023 Colonoscopy Renita Farzana e DO Work Phone: Start: 02-22-[address] PJ MAHONEY MD Comment on above: ROBOTIC ASSISTED RIG HT TOTAL KNEE Start: 10-01-2022 Lipid 1996 panel - S alanna or Plasma Tre Anderson DO Work Phone: Start: 10-01-2022 Thyrotropin [Units/v olume] in Serum or Plasma Tre Anderson DO Work Phone: Start: 09-16-2022 CT angiography [...] Pelvic & Breast Exam (Medicare) Azra Gee NP Work Phone: Start: 12-09-2016 End: 12-09-2016 *BMP [...] Florian MD Ligation of fallopian tube D Anival MAHONEY MD Plantar fasciectomy DR STEPHEN MAHONEY [...] Screening for malign ant neoplasm of colon [facility] Start: 05-22-2029 Screening for malign ant neoplasm of colon [facility] Start: 10-05-2025 Diabetes mellitus screening Diabetes Screening [facility] Start: 10-05-2023 Hemoglobin A1c measurement Diabetes: Hemoglobin A1C [facility] Start: 10-01-2023 Lipid panel Lipid Panel [facility] Start: 10-01-2023 Thyroid stimulating hormone measurement TSH Level [facility] Start: 08-29-2023 Medicare Advantage A nnual Wellness Visit Medicare Advantage Annual Wellness Visit [facility] Start: 08-05-2023 COVID-19 Vaccine (4 - Pfizer series) COVID-19 Vaccine (4 - Pfizer series) [facility] Start: 2023 Advance Directive Discussion Advance Directive Discussion [facility] Start: 2023 Bone Density Screening Bone Density Screening [facility] Start: 2023 Pneumococcal Vaccine : 65+ Years (2 of 2 - PCV) Pneumococcal Vaccine: 65+ Years (2 of 2 - PCV) [facility] Start: 04-29-2023 COVID-19 Vaccine ( season) COVID-19 Vaccine () [facility] Start: 04-29-2023 Influenza vaccination Influenza Vacc ine (#1) [facility] Start: 04-01-2023 Depresssion Monitoring Depresssion M onitoring [facility] Start: 01-02-2023 Hemoglobin A1c measurement Diabetes: Hemoglobin A1C [facility] Start: 09-17-2022 Patient discharge [facility] Start: 09-16-2022 Ambulation without limitation [facility] Start: 09-16-2022 Assessment of risk o f venous thromboembolism [facility] Start: 09-16-2022 Care regimes management [facility] Start: 09-16-2022 Catheterization of vein [facility] Start: 09-16-2022 Continuous positive airway pressure ventilation treatment [facility] Start: 09-16-2022 Insertion of cathete r into peripheral vein [facility] Start: 09-16-2022 Notification of physician [facility] Start: 09-16-2022 Oxygen therapy [facility] Start: 09-16-2022 Providing care accor ding to standard [facility] Start: 09-16-2022 [facility] Start: 09-16-2022 Admission procedure [facility] Start: 09-16-2022 Following clinical pathway protocol [facility] Start: 09-16-2022 Patient referral to dietitian [facility] Start: 08-29-2022 [facility] Start: 04-29-2022 Influenza vaccination INFLUENZA (#1) [facility] Start: 04-09-2022 DIABETES SCREEN DIABETES SCREEN [facility] Start: 09-25-2021 Anesthesia lumbar re gion nos ANESTH SPINE CORD SURGERY [facility] Work Phone: Start: 09-25-2021 Impltj/rplcmt ithcl/ edrl drug nfs prgrbl pump IMPLANT SPINE INFUSION PUMP [facility] Work Phone: Start: 08-29-2021 DEPRESSION ASSESSMENT [facility] Start: 04-29-2021 Influenza vaccination INFLUENZ A (Season Ended) [facility] Start: 04-09-2020 Hepatitis B screening URINE ALBUMIN:CREATININE RATIO [facility] Start: 2018 Hepatitis B Vaccine (1 of 3 - Risk 3-dose series) Hepatitis B Vaccine (1 of 3 - Risk 3-dose series) [facility] Start: 2018 RSV Immunization age d 60 or older (1 - 1-dose 60+ series) RSV Immunization aged 60 or older (1 - 1-dose 60+ series) [facility] Start: 07-25-2017 End: 07-25-[address] [facility] Start: 03-22-2017 Mammography [facility] Start: 12-09-2016 End: 12-09-2016 *BMP *BMP [facility] Start: 12-09-2016 End: 12-10-2016 *Hepatic Function Panel *Hepatic Function Panel [facility] Start: 12-09-2016 End: 12-09-2016 Ct abdomen & pelvis w/contrast material CT Abdomen/pelvis; with contrast [facility] Start: 12-09-2016 End: 12-10-2016 Follow Up after Imaging/labs Follow Up after Imaging/labs [facility] Start: 12-09-2016 End: 12-09-2016 Lipase *Lipase [facility] Start: 12-08-2015 End: 12-08-2015 *CBC with Differential *CBC with Differential [facility] Start: 12-08-2015 End: 12-08-2015 *CMP Complete Metabolic Panel *CMP Complete Metabolic Panel [facility] Start: 12-08-2015 End: 12-08-2015 *PROTS Protein S Defic. Profile [id number] *PROTS Protein S Defic. Profile [id number] [facility] Start: 12-08-2015 End: 12-08-2015 *UA - Urinalysis w/o Micro *UA - Urinalysis w/o Micro [facility] Start: 12-08-2015 End: 12-08-2015 Antithrombin actual/normal in Platelet poor plasma by Chromogenic method *AT3 - Antithrombin [id number] [facility] Start: 12-08-2015 End: 12-08-2015 Cardiolipin Antibodies (IgA IgG IgM) Cardiolipin Antibodies (IgA IgG IgM) [facility] Start: 12-08-2015 End: 12-08-2015 Clotting inhibitors protein c activity Protein C Activity [facility] Start: 12-08-2015 End: 12-08-2015 Ct thorax w/contrast material CT Chest with Contrast [facility] Start: 12-08-2015 End: 12-08-2015 Factor V (Leiden) Mutation Analysis Factor V (Leiden) Mutation Analysis [facility] Start: 12-08-2015 End: 12-08-2015 Lipid panel [AGGREGATE] *Lipid Profile [facility] Start: 12-08-2015 End: 12-08-2015 Thyroid stimulating hormone (TSH) *TSH [facility] Start: 12-08-2015 End: 12-08-2015 Urine, microalbumin *Urine, Microalbumin [facility] Start: 07-29-2015 LIPID SCREEN LIPID SCREEN [facility] Start: 02-26-2014 Screening for malign ant neoplasm of colon SIGMOIDOSCOPY [facility] Start: 02-26-2014 SIGMOIDOSCOPY SIGMOIDOSCOPY [facility] Start: 03-19-2013 Colonoscopy COLONOSCOPY [facility] Start: 03-19-2013 COLORECTAL CANCER SCREENING COLORECTAL CANCER SCREENING [facility] Start: 03-19-2013 Screening for malign ant neoplasm of colon [facility] Start: 07-03-2011 Hemoglobin A1c/Hemoglobin.total in Blood HBA1C [facility] [facility] Start: 2008 Screening for malign ant neoplasm of colon [facility] Start: 2008 SHINGRIX VACCINE (1 of 2) ROMAN GRIX VACCINE (1 of 2) [facility] Start: 2003 COLOGUARD (FIT-DNA) COLOGUARD (FIT-D NA) [facility] Start: [address] COLONOGRAPHY [facility] Start: 2003 FECAL OCCULT BLOOD FECAL OCCULT BLOO D [facility] Start: 1998 Screening for malign ant neoplasm of breast Mammogram [facility] Start: 1988 Screening for malign ant neoplasm of cervix [facility] Start: 1980 DTaP/Tdap/Td Vaccine s (1 - Tdap) DTaP/Tdap/Td Vaccines (1 - Tdap) [facility] Start: 1979 Screening for malign ant neoplasm of cervix [facility] Start: 1977 DTaP/Tdap/Td Vaccine s (1 - Tdap) DTaP/Tdap/Td Vaccines (1 - Tdap) [facility] Start: 1977 Urine microalbumin profile [facility] Start: 1977 Urine screening for protein Diabetes: Urine Protein Screening [facility] Start: 1976 ANNUAL PCP TEAM ATTORNEY GENERAL DYLAN DISEASE VISIT ANNUAL PCP TEAM CHRONIC DISEASE VISIT [facility] Start: 1976 Hepatitis B surface antibody level LDL CHOLESTEROL [facility] Start: 1976 HEPATITIS C SCREENING HEPATITIS C [facility] Start: 1976 Hepatitis C screening Hepatitis C [facility] Start: 1976 HIV SCREENING HIV SCREENING [facility] Start: 1970 Adult depression screening assessment DEPRESSION SCREENING [facility] Start: 1968 3 comp foot exam completed DIABETIC FOOT EXAM [facility] Start: 1968 Diabetic foot examination Diabetes: Foot Exam [facility] Start: 1968 Glaucoma screening Diabetes: R etinopathy Screening [facility] Start: 1968 Hepatitis B screening Urine Albumin:Creatinine Ratio [facility] Start: 1968 Hepatitis C antibody , confirmatory test DILATED RETINAL EXAM [facility] Start: 1968 Preventive dental service Diabetes: Dental Exam [facility] Start: 1964 PNEUMOCOCCAL (1 - PCV) PNEUMOCOCCAL (1 - PCV) [facility] Start: 1964 Pneumococcal Vaccine : 65+ (1 - PCV) Pneumococcal Vaccine: 65+ (1 - PCV) [facility] Start: 1959 MMR Vaccines (1 of 1 - Standard series) MMR Vaccines (1 of 1 - Standard series) [facility] Start: 1958 COVID-19 VACCINE (#1) COVID-19 VACCI NE (#1) [facility] Start: 1958 Annual wellness visit Medicare Initial Physical (IPPE) [facility] Start: 1958 Hepatitis B Vaccines (1 of 3 - 3-dose series) Hepatitis B Vaccines (1 of 3 - 3-dose series) [facility] Start: 1958 HIV screening HIV Screening [facility] Start: 1958 Lipid panel Lipid Panel [facility] Start: 1958 Screening for malign ant neoplasm of colon [facility] Start: 1958 Screening for osteoporosis Bone Density Scan [facility] Start: 1958 Thyroid stimulating hormone measurement TSH Level [facility] End: 09-06-2023 Moderate Sedation Moderate Sedation Procedures Routine Once for 1 Occurrences starting 09/06/2023 until 09/06/2023 [facility] Service Area Work Phone: Comment on above: Once for 1 Occurrenc es starting 09/06/2023 until 09/06/2023 Patient Education [facility] Patient referral [facility] Work Phone: End: 10-27-2023 XR ANKLE GENERAL 3V AP/LAT/OBL LEFT XR ANKLE GENERAL 3V AP/LAT/OBL LEFT Radiology Routine Acquired valgus deformity of left ankle 1 Occurrences starting 09/28/2022 until 10/27/2023 [facility] Work Phone: Comment on above: 1 Occurrences starti ng 09/28/2022 until 10/27/2023 [facility] Immunizations Immunization Date Immunization Notes Care Provider [facility] 06-16-2022 influenza virus vaccine, unspecified formulation Yovanny Landis MD Work Phone: [facility] 06-25-2018 influenza virus vaccine, unspecified formulation Xr Rej Work Phone: [facility] 05-29-2015 influenza, seasonal, injectable Dr. Rica Padgett Work Phone: [facility] 06-29-[address] Rica Padgett Work Phone: [facility] 07-26-2012 influenza virus vaccine, unspecified formulation Azra [place] Work Phone: [facility] 05-13-[address] Danya Padgett Work Phone: [facility] Work Phone: 05-13-2012 pneumococcal vaccine , unspecified formulation Dr. Rica Padgett Work Phone: [facility] NEGATED: Highlighted row has not occurred!10-03-2022 Influenza, injectable, Madin Macrina Canine Kidney, preservative free, quadrivalent Tre Jokassandraeri DO Work Phone: [facility] Tengion Comment on above: Deferred: Patient Re fused Payers Date Payer Category Payer Self-pay [id number] 2022 [employer] ( and others) [id number] 2022 [employer] ( and others) [id number] 2022 Private Health Insurance [id number] 2022 Medicare [id number] 2017 Unknown [id number] 2013 [employer] ( and others) [id number] 2013 Unknown FOR LIFE [id number] 2013-Present Indemnity [id number] 2007 Medicare MEDICARE MEDICAR E B [id number] 2007-2016 [place] [id number] 2007 Medicare [id number] .[id number] 2004 Medicare [id number] 2004 Medicare MEDICARE MEDICAR E A AND B [id number] 2004-Present [place] Medicare [id number] .[id number] 2004 Unknown 1958 Unknown [id number] 2.16840.1.983245.3.579.2 .651 1958 Unknown [id number] 2.16.840.1.000006.3.579.2 .627 1958 Unknown [id number] 2.16.840.1.905991.3.579.2 .627 1958 Unknown [id number] 2.16.840.1.114017.3.579.2 .627 1958 Unknown [id number] 2.16.840.1.023928.3.579.2 .1243 Unknown [id number] 2.16.840.1.754558.3.579.2 .462 Unknown [id number] 2.16.840.1.413146.3.579.2 .462 Unknown [id number] 2.16.840.1.527745.3.579.2 .462 Unknown [id number] 2.16.840.1.390840.3.579.2 .462 Unknown [id number] 2.16.840.1.034330.3.579.2 .462 Unknown [id number] 2.16.840.1.343380.3.579.2 .462 Unknown [id number] 2.16.840.1.653856.3.579.2 .462 Unknown [id number] 2.16.840.1.007522.3.579.2 .462 Unknown [id number] 2.16.840.1.851248.3.579.2 .462 Unknown [id number] 2.16.840.1.878515.3.579.2 .462 Unknown [id number] 2.16.840.1.519726.3.579.2 .462 Unknown [id number] 2.16.840.1.198215.3.579.2 .462 Unknown [id number] 2.16.840.1.584824.3.579.2 .462 Unknown [id number] 2.840.1.260625.3.579.2 .462 Unknown [id number] 2..840.1.689379.3.579.2 .462 Unknown [id number] 2..840.1.077577.3.579.2 .462 Unknown [id number] 2.16.840.1.455680.3.579.2 .462 Unknown [id number] 2.16.840.1.671369.3.579.2 .462 Unknown [id number] 2.16.840.1.366942.3.579.2 .462 Unknown [id number] 2.16.840.1.546603.3.579.2 .462 Unknown [id number] 2.16.840.1.811002.3.579.2 .462 Unknown [id number] 2.16.840.1.655184.3.579.2 .462 Unknown [id number] 2.16.840.1.284645.3.579.2 .462 Unknown [id number] 2.16.840.1.134400.3.579.2 .462 Unknown [id number] 2.16.840.1.746846.3.579.2 .462 Unknown [id number] 2.16.840.1.400504.3.579.2 .462 Unknown [id number] 2.16.840.1.855935.3.579.2 .462 Unknown [id number] 2.16.840.1.707588.3.579.2 .462 Unknown [id number] 2.16.840.1.368964.3.579.2 .462 Unknown [id number] 2.16.840.1.932719.3.579.2 .462 Unknown [id number] 2.16.840.1.257328.3.579.2 .462 Social History Date Type Detail Facility Start: 03-06-2011 End: 09-21-2012 Tobacco smoking status HIIS Former smoker [facility] Work Phone: Comment on above: quit in 1993 End: 03-21-1994 History of tobacco use Current smoker [facility] Start: 09-21-2012 End: 09-06-2023 Tobacco use and exposure Never used [facility] Start: 09-21-2012 Alcohol intake 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 (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) [facility] Start: 1960 Sex Assigned At Not on file [facility] Start: 11-10-2021 End: 09-16-2022 Tobacco smoking consumption unknown [facility] Start: 08-11-2019 Rare [facility] Start: 08-11-2019 None [facility] Start: 12-08-2020 Spouse/ Signif icant Other [facility] Start: 05-18-2019 Non-smoker [facility] Start: 1960 Sex Assigned At Female W [facility] End: 03-21-1994 History of tobacco use Cigarette Smoker [facility] Work Phone: Start: 04-13-2022 Alcohol intake Current drinke r of alcohol (finding) [facility] Start: 04-09-2019 History SDOH Alcohol Comment rarely [facility] Start: 05-09-2022 End: 09-06-2023 Exposure to SARS-CoV-2 (event) Not sure [facility] Start: 02-03-2023 End: 09-06-2023 Tobacco smoking status Never smoked tobacco (finding) [facility] Robyn Sex Assigned At Sex [facility] Start: 04-13-2022 End: 10-02-2022 History of Social function [facility] Start: 04-13-2022 End: 10-02-2022 Tobacco use panel [facility] National Score (1-10 0), lower number is lower risk Not on file [facility] Start: 09-06-2023 Alcohol intake Lifetime non-d sue (finding) [facility] Work Phone: Within the last year , have you been afraid of your partner or ex-partner? No [facility] How often to you hav e a drink containing alcohol? Monthly or less [facility] How many standard drinks containing alcohol do you have on a typical day? 1 or 2 [facility] How often do you hav e 6 or more drinks on 1 occasion? Never [facility] Start: 10-04-2022 Sexual orientation Heterosexual (fin omari) [facility] Start: 10-02-2022 History SDOH Alcohol Frequency 2 [facility] Start: 10-02-2022 History SDOH Alcohol Std Drinks 1 [facility] Medical Equipment Procedure Code Equipment Code [...] Facility 02-24-2023 Functional Status Room check performed [facility] 02-24-2023 Functional Status Elsy chappell [facility] 02-24-2023 Functional Status Independent Elsy chappell [facility] 02-24-2023 Functional Status Min A Elsy chappell [facility] 02-24-2023 Functional Status Demonstrates C orrect Call Light Use Yes [facility] 02-23-2023 Functional Status Elsy chappell [facility] 02-23-2023 Functional Status Dinner Percent 25 [facility] 02-23-2023 Functional Status Elsy chappell [facility] 02-23-2023 Functional Status 60 Elsy Henry [facility] 02-23-2023 Functional Status 2 Elsy Henry [facility] 02-23-2023 Functional Status Single level home [facility] 02-23-2023 Functional Status Elsy chappell [facility] 02-22-2023 Functional Status Elsy chappell [facility] 02-22-2023 Functional Status Elsy Henry [facility] 02-22-2023 Functional Status Cane, Vern [facility] 02-22-2023 Functional Status ice on, tension pillow in place [facility] 02-22-2023 Functional Status NPO Status Maintained A [facility] 02-03-2023 Functional Status Sensory Deficits None A [facility] 09-17-2022 Functional status Ambulates [facility] Work Phone: Mental Status Date Assessment Result Facility 02-24-2023 Mental Status Orientation Asse ssment Oriented x 4 [facility] 02-24-2023 Mental Status [facility] 02-24-2023 Mental Status Oriented x 4 [facility] 02-23-2023 Mental Status [facility] 02-23-2023 Mental Status [facility] 09-16-2022 Cognitive function Voice/Name [facility] Work Phone: 01-30-2022 Cognitive function Level Of Cons ciousness Awake;Alert;Appropriate;Follow s Commands [facility] Work Phone: 09-25-2021 Cognitive function Level Of Cons ciousness Appropriate;Drowsy [facility] Work Phone: 09-25-2021 Cognitive function Voice/Name [facility] Work Phone: Clinical Notes 02-07-2015 to 03-18-2025 Telephone Encounter - Kitty Greco - 11/07/2023 10:14 AM EDTTelephone Encounter - Kitty Greco - 11/07/2023 10:14 AM EDTTelephone Encounter - Maria Teresa Bacon - 11/03/2023 9:43 AM EST Note Date & Type Note Facility 03-18-[address] [facility] 07-28-[address] [facility] 11-07-2023 Note Spoke to patient and advised her that we have not received her referral and requested her to have her pcp refax the referral to us. Patient verbalized understanding. [facility] 11-07-2023 Telephone encounter Note Spoke to patient and advised her that we have not received her referral and requested her to have her pcp refax the referral to us. Patient verbalized understanding. [facility] 11-07-2023 Miscellaneous Notes Spoke to patient and advised her that we have not received her referral and requested her to have her pcp refax the referral to us. Patient verbalized understanding. Name of caller: Flex Contact phone number: [phone] Relationship to Patient: patient Provider: Dr. Landis Practice: Endocrinology Chief Complaint/Reason for Call: Flex states she would like a call back to confirm receipt of her referral faxed to the office two days ago, 11/01/23, by Dr. Rica Padgett. Please contact Flex and howie. Best time of day caller can be reached: Any Patient advised that office/PCP has 24-48 business hours to return their call: No documented in this encounter [facility] 11-03-2023 Telephone encounter Note Name of caller: Flex Contact phone number: [phone] Relationship to Patient: patient Provider: Dr. Landis Practice: Endocrinology Chief Complaint/Reason for Call: Flex states she would like a call back to confirm receipt of her referral faxed to the office two days ago, 11/01/23, by Dr. Rica Padgett. Please contact Flex and howie. Best time of day caller can be reached: Any Patient advised that office/PCP has 24-48 business hours to return their call: No [facility] 09-06-2023 Hospital Discharg e instructions Mariia [...] having your procedure, call the [facility] to be advised whether a visit to [...] Party Signature Date documented in this encounter [facility] Work Phone: 09-06-2023 History and [...] care of this patient. Renita Mijares DO [facility] Work Phone: 09-06-2023 History and [...] Renita Mijares DO documented in this encounter [facility] Work Phone: 09-06-2023 Miscellaneous Notes Patient: Flex Wooten Pre-sedation Evaluation: Sedation necessary for: Analgesia Requesting service: Endoscopy History of Present Illness: Colonoscopy Past Medical History: Diagnosis Date Anxiety Chronic pain Depression Diabetes mellitus (CMS/HCC) Disease of thyroid gland Sleep apnea Principle problems: There are no problems to display for this patient. 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 Form: 338A ([id number]) R: 01/02 Follow Up Care 08/11/2022 13:44:36 With:MATTHEW HERNÁNDEZ PA-C, Orthopedic Address: [facility] [address] [place] [address]- When:03/07/2023 10:15:00 [facility] 02-24-2023 Note Discharge Instructions Thank you for allowing [facility] to assist you with your healthcare needs. The following is important discharge information regarding your hospital visit. Your Care Team [facility] Your Diagnosis Osteoarthritis Diabetes HTN (hypertension) Sleep apnea Status post total right knee replacement What to do next Follow Up Appointments Follow Up with MATTHEW HERNÁNDEZ PA-C, Orthopedic When 03/07/2023 10:15 AM EDT Where: [facility] [place] [address]- The Following Activity and Diet Have Been [...] medication providers or retail pharmacies. Education Materials [facility] Post-operative Instructions PLEASE FOLLOW [facility] POST-OP INSTRUCTIONS GIVEN WATCH FOR SIGNS OF INFECTION: call the office ([phone]) if experencing any of the following: (Usually [...] listed on your follow up instructions. Form: 338Gavin ([id number]) R: 01/02 Additional Information VACCINATE! IT SAVES LIVES! Members of the community who have not yet received the COVID-19 vaccine and would like to receive it can visit one of [facility] vaccine clinics. There are many vaccine clinic locations within the [facility]. For locations and available times, please visit [email or web address] hio.gov/. It is important to note that some COVID mobile vaccine clinics are held outdoors and may be canceled in rainy or stormy conditions. To learn more about pediatric vaccinations (ages 5-11), we invite you to visit the [facility] webpage. https://[email or web address]/p [email or web address]-Yhxqi-Tzgudhkkqeg-Freq [email or web address]-Ogotimhgl.html To learn more about the COVID-19 vaccine, we invite you to visit the CDC website for a list of frequently asked questions.https://www.cdc.gov/co ronavirus/2019-ncov/vaccines/faq .html [facility] Patient Portal Access Instructions: Stay connected with your healthcare team and access your personal medical information anytime with the [facility] Patient Portal. Please follow the directions below to create your [facility] account: 1.Access the email account you provided upon registration to the hospital/physician office.2.Look for an invitation email from [facility].3.Open the email and access the invitation link: Accept Invitation to [facility].4.Fill in the required morocho to create your account. To access your account, visit [employer]. Click the blue button labeled Access Patient [...] you will allow to register on the [facility] Patient Portal for access to your information. You can also access the [facility] Patient Portal on the [facility] otoniel. Simply click on Patient Portal and then log into your account. If you would like to receive a full copy of your medical records, please contact the [facility] Medical Records Department by calling [phone], Tuesday through Tuesday between 8 a.m. and [...] Call your local pharmacy or go to [email or web address] 1/2L4Is9w to find one close to you.3.Make use of household items: Use cat litter or old coffee grounds to dispose medications if other options are not available. Mix your drugs with these household products, seal them in an airtight container and throw it into the garbage. Call [facility]: [phone] to be sure your drugs can be [...] Signatures Patient Education Materials 5 - [facility] Post-op Instruction 03/2017 ([id number]) Medication Leaflets My discharge plan and instructions have been reviewed and explained to me and I,JEFLEX understand my current condition and have read and understand these discharge instructions. I have received a written copy of the plan/instructions. If I have questions, I am aware that I should contact my doctor. 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 The following is important discharge information regarding your hospital visit. Your Care Team [facility] Your Diagnosis Osteoarthritis Diabetes HTN (hypertension) Sleep apnea Status post total right knee replacement What to do next Follow Up Appointments Follow Up with MATTHEW HERNÁNDEZ PA-C, Orthopedic When 03/07/2023 10:15 AM EDT Where: [facility] [address] [place] [address]- The Following Activity and Diet Have Been [...] The extended-release form of oxycodone is for vnmkhe-rtj-folnv treatment of pain and should not be [...] against the law. Stop taking all other hrwgqg-ben-jbfif opioid pain medicines when you start taking [...] may report side effects to FDA at 2-285-XKH-8673. What other drugs will affect oxycodone? You [...] may affect oxycodone. This includes prescription and cwpo-wut-qckmgvo medicines, vitamins, and herbal products. Not all [...] to ensure that the information provided by [employer]. ('[employer]') is accurate, up-to-date, and complete, but no guarantee is made to that effect. Drug information contained herein may be time sensitive. [employer] information has been compiled for use by healthcare practitioners and consumers in the [place] and therefore [employer] does not warrant that uses outside of the [place] are appropriate, unless specifically indicated otherwise. [employer] drug information does not endorse drugs, diagnose patients or recommend therapy. [employer] drug information is an informational resource designed [...] effective or appropriate for any given patient. [employer] does not assume any responsibility for any aspect of healthcare administered with the aid of information [employer] provides. The information contained herein is not intended to cover all possible uses, directions, precautions, warnings, drug interactions, allergic reactions, or adverse effects. If you have questions about the drugs you are taking, check with your doctor, nurse or pharmacist. Copyright 9036-2961 [employer]. Version: 14.02. Revision Date: 09/25/2020. Education Materials [facility] Post-operative Instructions PLEASE FOLLOW [facility] POST-OP INSTRUCTIONS GIVEN WATCH FOR SIGNS OF INFECTION: call the office ([phone]) if experencing any of the following: (Usually [...] on your follow up instructions. Form: 338A (06267) R: 01/02 Additional Information VACCINATE! IT SAVES LIVES! Members of the community who have not yet received the COVID-19 vaccine and would like to receive it can visit one of [facility] vaccine clinics. There are many vaccine clinic locations within the [facility]. For locations and available times, please visit https://[email or web address].o nmo.gov/. It is important to note that some COVID mobile vaccine clinics are held outdoors and may be canceled in rainy or stormy conditions. To learn more about pediatric vaccinations (ages 5-11), we invite you to visit the [facility] webpage. [email or web address] [email or web address] To learn more about the COVID-19 vaccine, we invite you to visit the CDC website for a list of frequently asked questions.https://www.cdc.gov/co ronavirus/2019-ncov/vaccines/faq .html [facility] Patient [facility] Access Instructions: Stay connected with your healthcare team and access your personal medical information anytime with the [facility] Patient Portal. Please follow the directions below to create your [facility] account: 1.Access the email account you provided upon registration to the hospital/physician office.2.Look for an invitation email from [facility].3.Open the email and access the invitation link: Accept Invitation to [facility].4.Fill in the required morocho to create your account. To access your account, visit [employer]. Click the blue button labeled Access Patient [...] you will allow to register on the [facility] for access to your information. You can also access the [facility] on the [place] [employer] otoniel. Simply click on Patient Portal and then log into your account. If you would like to receive a full copy of your medical records, please contact the [facility] Medical Records Department by calling [phone], Tuesday through Tuesday between 8 a.m. and [...] Call your local pharmacy or go to [email or web address] to find one close to you.3.Make use of household items: Use cat litter or old coffee grounds to dispose medications if other options are not available. Mix your drugs with these household products, seal them in an airtight container and throw it into the garbage. Call [facility]: [phone] to be sure your drugs can be [...] a CHART COPY. Signatures Patient Education Materials [address] [place] [address] Post-op Instruction 03/2017 (21321) Medication Leaflets oxycodone My discharge plan and instructions have been reviewed and explained to me and I,FLEX WOOTEN understand my current condition and have read and understand these discharge instructions. I have received a written copy of the plan/instructions. If I have questions, I am aware that I should contact my doctor. 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 Patient denies any chest pain, shortness of breath, dizziness, lightheadedness, nausea or vomiting, or calf pain. No adverse overnight events. Pain has been controlled on medications. Patient was evaluated by physical therapy. Discharge planning is possible home health versus prison facility. She has had a previous left total knee arthroplasty that did require prison facility in the past. She states she went to [facility]. We do have physical therapy [...] possible discharge home with home health for prison facility. Patient does have steps to manage [...] of pulmonary embolism. I have reviewed the [place] Automated Rx Reporting System (OARRS) report for [...] MATTHEW HERNÁNDEZ PA-C on 02/23/2023 07:28 AM [facility] 02-22-2023 Note ORIGINAL EXAMINATION: TWO XRAY [...] Date: 02/22/2023 1:07:27 PM Ordering Provider: [facility] 02-22-2023 Note ORIGINAL EXAMINATION: TWO [...] Sign Date: 02/22/2023 1:07:27 PM Ordering Provider: [facility] 02-22-2023 Anesthesiology Consult note Patient: FLEX WOOTEN Age: 62 years Sex: Female : 1960 Associated Diagnoses: None Author: MARTINA GOODWIN APRN-SUPERVISOR IRRIGATION Preoperative Information Time of last food or [...] oral tablet: 20 mg, 8 tab(s), Oral, q, FRIDAYS, 72 tab(s), 0 Refill(s) omeprazole 40 [...] Sister Diabetes Mother Sister Procedure history: Bunionectomy (36125484). Comments: 02/03/2023 13:48 Hansa Álvarez RN BILATERAL Plantar fasciectomy (531647454). Comments: 02/03/2023 13:48 Hansa Álvarez RN LEFT Fusion of lumbosacral region of spine by posterior approach (9511721740). Carpal tunnel release (292711940). Comments: 02/03/2023 13:50 Hansa Álvarez RN BILATERAL Tonsillectomy and adenoidectomy (096641560). Tubal ligation (027067006). Hysterectomy (941482204). Pump, device (5638211549). Comments: 02/03/2023 13:51 Hansa Álvarez RN PAIN PUMP Total knee arthroplasty (5372017602). Comments: 02/03/2023 13:52 Hansa Álvarez RN LEFT [...] Resp Rate 17 br/min (FEB 22 09:31) DTE620 mmHg (FEB 22 09:31) DBP77 mmHg (FEB 22 09:31) Measurements from flowsheet : Measurements 02/22/2023 9:31 EDT Height 162.6 cm Admission Weight 110 kg [place] Body Weight 54.74 kg Admission Body Mass [...] Height 162.6 cm Admission Weight 110 kg [place] Body Weight 54.74 kg Admission Body Mass [...] no difficulties Skin Temperature Warm Skin Description [place], Normal for ethnicity, Dry Skin Integrity Intact Mucous Membrane Color [place] Skin Moisture General Dry IV Present Present [...] Patient History (Modified) . Assessment and Plan [place] [employer] Anesthesiologists (ASA) physical status classification: [...] 10:56 AM Digitally Signed by MARTINA GOODWIN NOVELTY TWISTER OPERATOR-SUPERVISOR IRRIGATION on 02/22/2023 10:59 AM [facility] 10-06-2022 Telephone encounter Note Name of caller requesting page:Matthew Phone Number of caller: [phone] ext [phone] Facility requesting page: [employer] Reason for Page: Authorization Provider paged: Dr. Mony Wright Practice Name of paged provider: [facility] Placed to #: secure chat Time Page was sent or provider contacted: 2:40pm Page Content: Matthew a clinical nurse advisor with [employer], called to inform Dr. Tre Anderson that the authorization for DME home ventilator has been denied. He state Dr. Anderson can do a peer to peer review with their medical staff specialist. The acceptance date for the peer to peer is on or before 10/08/22 at 3pm. Peer to Peer can be scheduled by call Matthew at [phone] ext [phone] with reference number [id number]. Thank you. Response from Dr. Wright: I have never seen or met the patient Im not sure who needs to be contacted for this patient Reached out to [facility] management. Advised to call Matthew back. Spoke with another nurse advisor. Asked when order was placed, was advised it was 09/30/22 which was before pt had a chart with [facility]. There is another Dr. Tre Anderson at [facility]. That is where the records came from. The nurses states they will reach out to [facility]. [facility] 10-06-2022 Miscellaneous Notes Name of caller requesting page:Matthew Phone Number of caller: [phone] ext [phone] Facility requesting page: [employer] Reason for Page: Authorization Provider paged: Dr. Mony Wright Practice Name of paged provider: [facility] Placed to #: secure chat Time Page was sent or provider contacted: 2:40pm Page Content: Matthew a clinical nurse advisor with [employer], called to inform Dr. Tre Anderson that the authorization for DME home ventilator has been denied. He state Dr. Anderson can do a peer to peer review with their medical staff specialist. The acceptance date for the peer to peer is on or before 10/08/22 at 3pm. Peer to Peer can be scheduled by call Ray at [phone] ext [phone] with reference number [id number]. Thank you. Response from Dr. Wright: I have never seen or met the patient Im not sure who needs to be contacted for this patient Reached out to [facility] management. Advised to call Ray back. Spoke with another nurse advisor. Asked when order was placed, was advised it was 09/30/22 which was before pt had a chart with [facility]. There is another Dr. Tre Anderson at [facility]. That is where the records came from. The nurses states they will reach out to [facility]. documented in this encounter [facility] 06-23-2022 Miscellaneous Notes I left a message for Tessie at [employer] regarding their addendum request. If they have Dr. Aggarwal' note, they have all the answers they need. Not sure if they have the patient's clinic note. Mendy Adams RN documented in this encounter [facility] 05-19-2022 Note HNO ID: [id number] Author: Nicolás Aggarwal MD Service: ? Author [...] HISTORY Diagnosis Date DVT (deep venous thrombosis) ([facility]) 2013 post knee replacement Fibromyalgia Hemorrhage of gastrointestinal tract, unspecified Hemorrhage of rectum and anus Internal hemorrhoids without mention of complication Other forms of migraine Other unspecified back disorder Pulmonary embolism ([facility]) 2013 PAST SURGICAL HISTORY Procedure Laterality Date [...] Lungs: No H (more content not included)... [facility] 05-19-2022 Note HNO ID: [id number] Author: Pat Ricks RT(R) Service: Radiology Author Type: Technologist Type: Progress [...] RT Charley(R) May 19, 2022 10:16 AM [facility] 05-19-2022 History of Presen t [...] Other unspecified back disorder Pulmonary embolism (HCC) 2013 PAST SURGICAL HISTORY [...] X-Rays The patient's pertinent medical history from [facility] has been reviewed. PFOMIS forms [...] records. This note was partially generated using [employer] voice recognition system, and there may be [...] Nicolás Aggarwal M.D. documented in this encounter [facility] 05-19-2022 History of Presen t illness [...] 2022 10:16 AM documented in this encounter [facility] 02-07-2015 Miscellaneous Notes PSR: Please call pt for [facility] Yearly and mammogram. Thanks. Patient received letter for annual mammogram, please place order and have nursing scheduler call her. Patient prefers AM appts. documented in this encounter [facility] Evaluation + Plan note Future Appointments [facility] Evaluation note Diagnosis Other screening mammogram documented in this encounter [facility] noteNo assessment information availableW[facility] Work Phone: Evaluation note* Diagnosis Pes planus of left foot- Primary Primary osteoarthritis of left foot Diabetic neuropathy, painful (HCC) Type II or unspecified type diabetes mellitus with neurological manifestations, not stated as uncontrolled Acquired valgus deformity of left ankle documented in this encounter [facility] note* Diagnosis Onset Date Resolution Status Diabetes chronic High cholesterol chronic Hypertension chronic Obesity chronic Diabetes chronic Hypertension chronic Obesity chronic [facility] Work Phone: Evaluation note* Diagnosis Onset Date Resolution Status NIEVES (dyspnea on exertion) re solved Hypoxia resolved [facility] Work Phone: Evaluation note* Diagnosis Acquired valgus deformity of left ankle- Primary documented in this encounter [facility] note* Diagnosis Pain Generalized pain documented in this encounter [facility] note* Diagnosis Diarrhea, unspecified type- Primary documented in this encounter [facility] Work Phone: Evaluation note* Diagnosis Diarrhea, unspecified type- Primary documented in this encounter [facility] Work Phone: Hospital course Narrative No data available for this section [facility] Hospital Discharge instructions No data available for this section [facility] Progress note No data available for this section [facility] Reason for referral (narrative)* Diagnostic Procedure Only (Routine) - Pending Review Specialty Diagnoses / Procedures Referred By Kelton t Referred To Contact XR IMAGING Diagnoses Acquired valgus deformity of left ankle Procedures XR ANKLE GENERAL 3V AP/LAT/OBL LEFT RADEX ANKLE COMPLETE MINIMUM 3 VIEWS Nicolás [place] [address] [place] [address] Xr Imaging Referral ID Status Reason Start Date Expiration Date Visits Requested Visits Authorized [id number] Pending Review Auto-Generat ed Referral 09/28/2022 10/27/2023 1 1 [facility] Diagnostic Procedure Only (Routine) - Closed Specialty Diagnoses / Procedures Referred By Contac t Referred To Contact XR IMAGING Diagnoses Pain Procedures XR FOOT GENERAL 3V AP/LAT/OBL LEFT RADEX FOOT COMPLETE MINIMUM 3 VIEWS Nicolás [place] [address] [place] [address] [place] [address] Referral ID Status Reason Start Date Expiration Date V isits Requested Visits Authorized [id number] Closed Auto-Generate d Referral 05/04/2022 06/03/2023 1 1 [facility] Summary Purpose Family History No Family [...] No November 10, 2021 11:41am Power of Oil Lease Operator No November 10 11:41am Advance Directive Response Recorded Date/ Time Advance Directives Yes August 01, 2015 5:05pm Living Will No January 25, 2022 2 :05pm Power of Oil Lease Operator No January 25, 2022 2:05pm Advance Directive Response Recorded Date/ Time Advance Directives Yes August 01, 2015 5:05pm Living Will No January 30, 2022 1 1:58pm Power of Oil Lease Operator No January 30, 2022 11:58pm Advance Directive Response Recorded Date/ Time Advance Directives Yes April 2:05pm Living Will No May 19, 2022 2:05pm Power of Oil Lease Operator No Martha 21st , 2022 2:05pm Advance Directive Response Recorded Date/ Time Advance Directives Yes April 2:05pm Living Will No September 16 5:52pm Power of Oil Lease Operator No September 16, 2022 5:52pm Latest Code [...] PRE KENT RGERY RT TOTAL KNEE W PADMAJAHesham RAZOO PROTOCAL PRE SURGERY SOB, RULE OUT PE SOB Chief Complaint PADMAJA PROTOCAL PRE KENT RGERY RT TOTAL KNEE W PADMAJA RAZOO PROTOCAL PRE SURGERY SOB, RULE OUT PE SOB HYPERGLYCEMIA 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, 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 Reason for Visit Diabetes High cholesterol Hypertension Obesity Diabetes Hypertension Obesity Chief Complaint 3 M FU RULE OUT DVT HYPOXIA HYPOXIA HYPOXIA SOB Reason for Visit NIEVES (dyspnea on exer tion) Hypoxia Reason for Referral Specialty Diagnoses / Procedures Referred By Kelton rincon Referred To Contact Gastroenterology Diagnoses Diarrhea, unspecified type Procedures Colonoscopy Screening; Average Risk Patient MA COLONOSCOPY FLX DX W/COLLJ SPEC WHEN PFRMD MA COLON CA SCRN NOT HI RSK IND MA COLORECTAL SCRN; HI RISK IND MA COLONOSCOPY W/BIOPSY SINGLE/MULTIPLE MA COLSC FLX W/RMVL OF TUMOR POLYP LESION SNARE TQ MA COLSC FLX W/REMOVAL LESION BY HOT BX FORCEPS Renita Mijares, DO [address] [facility], [place] [address] Referral ID Status Reason Start Date Expiration Date V isits Requested Visits Authorized [id number] Authorized 07/26/2023 07/25/2024 1 1 Additional Source Comments INFORMATION SOURCE (unrecogn ized section and content) DATE CREATED AUTHOR 05/09/2019 [facility] DATE CREATED AUTHOR AUTHOR'S ORGANIZ ATION 05/09/2019 [facility] DATE CREATED AUTHOR AUTHOR'S ORGANIZ ATION 02/13/2020 [facility] DATE CREATED AUTHOR AUTHOR'S ORGANIZ ATION 05/27/2021 [facility] DATE CREATED AUTHOR AUTHOR'S ORGANIZ ATION 06/26/2022 [facility] DATE CREATED AUTHOR AUTHOR'S ORGANIZ ATION 03/07/2023 [facility] ([place] DATE CREATED AUTHOR AUTHOR'S ORGANIZ ATION 09/08/2023 [facility] DATE CREATED AUTHOR AUTHOR'S ORGANIZ ATION 11/07/2023 [facility] DATE CREATED AUTHOR AUTHOR'S ORGANIZ ATION 03/24/[address] [facility] Source Comments (unrecognize d section and content) In the event this informatio n is protected by the Federal Confidentiality of Alcohol and Drug Abuse Patient Records regulations: The Federal rules restrict any use of the information to criminally investigate or prosecute any alcohol or drug abuse patient.[facility] Hospital[facility] the event this information is protected by the Federal Confidentiality of Alcohol and Drug Abuse Patient Records regulations: The Federal rules restrict any use of the information to criminally investigate or prosecute any alcohol or drug abuse patient.[facility] HospitalIn the event this information is protected by the Federal Confidentiality of Alcohol and Drug Abuse Patient Records regulations: The Federal rules restrict any use of the information to criminally investigate or prosecute any alcohol or drug abuse patient.[facility] HospitalIn the event this information is protected by the Federal Confidentiality of Alcohol and Drug Abuse Patient Records regulations: The Federal rules restrict any use of the information to criminally investigate or prosecute any alcohol or drug abuse patient.[facility] HospitalIn the event this information is protected by the Federal Confidentiality of Alcohol and Drug Abuse Patient Records regulations: The Federal rules restrict any use of the information to criminally investigate or prosecute any alcohol or drug abuse patient.[facility] Reason for Visit (unrecogniz ed section and content) Reason Onset Date Comments Yearly Exam With Mammogram 02/07/2015 Reason Comments New Reason Onset Date Comments Question 06/23/2022 Reason Comments Radio Gen RMP Specialty Diagnoses / Procedures Referred By Contac t Referred To Contact XR IMAGING Diagnoses Pain Procedures XR FOOT GENERAL 3V AP/LAT/OBL LEFT RADEX FOOT COMPLETE MINIMUM 3 VIEWS Nicolás [place] [address] [facility] [place] [address] [place] [address] Referral ID Status Reason Start Date Expiration Date V isits Requested Visits Authorized [id number] Closed Auto-Generate d Referral 05/04/2022 06/03/2023 1 1 Specialty Diagnoses / Procedures Referred By Contac t Referred To Contact Diagnoses Diarrhea, unspecified Procedures MA COLONOSCOPY FLX DX W/COLLJ SPEC WHEN PFRMD MA COLONOSCOPY W/BIOPSY SINGLE/MULTIPLE MA COLSC FLX W/RMVL OF TUMOR POLYP LESION SNARE TQ MA COLSC FLX W/REMOVAL LESION BY HOT BX FORCEPS [id number] [address] [place] [address] [phone] Referral ID Status Reason Start Date Expiration Date Visits Re quested Visits Authorized [id number] 1 1 Reason Onset Date Comments Referral [...] Care Teams (unrecognized sec tion and content) Solar Installation Supervisor Relationship Specialty Start Date End Date Rica Padgett DO [address] [place] [address] PCP - General Family Medicine 04/09/19 Solar Installation Supervisor Relationship Specialty Start Date End Date Rcia Padgett DO [address] [place], [place] [id number] PCP - General Family Medicine 04/09/19 Team Status: Active Member Role Status Dates Dr. Rica Padgett DO Family Provider Active Dr. Rica Padgett DO Primary Care Provider Active Team Status: Inactive Member Role Status Dates Dr. Rica Padgett DO Primary Care Provider, Referring P bryn Active Marissa Ruiz , CALEB-C Attending Provider Active Team Status: Active Member Role Status Dates Dr. Rica Padgett DO Primary Care Provider Active Dr. Mraie Dee , DO Emergency Provider Active Dr. [...] MD Attending Provider, Referrin g Provider Active Solar Installation Supervisor Relationship Specialty Start Date End Date Rica Padgett DO [address] [place] [place], [place] [phone] PCP - General Family Medicine 04/09/19 Solar Installation Supervisor Relationship Specialty Start Date End Date Rica Padgett DO [address] [place] [address] PCP - General Family Medicine 04/09/19 Solar Installation Supervisor Relationship Specialty Start Date End Date Rica PadgettDO [address] [place] [phone] PCP - General Family Medicine 09/06/23 Solar Installation Supervisor Relationship Specialty Start Date End Date Rica PadgettDO [address] [place] [phone] PCP - General Family Medicine 09/06/23 Solar Installation Supervisor Relationship Specialty Start Date End Date Erin Saunders [address] [place] [address] PCP - General Family [facility] 10/01/22 Solar Installation Supervisor Relationship Specialty Start Date End Date Erin Saunders [address] [place] [address] PCP - General Family [facility] 10/01/22 FOR RECORDS PERTAINING TO PATIENTS [...] BE BASED ON THE PRIMARY CLINICAL RECORDS. [facility] provides no warranty or guarantee of the accuracy or completeness of information in this document.
--- NOTE | 2025-03-24 23:00 | RAD_ITS ---
PROCEDURE: CHEST PA AND LATERAL 03/24/2025 REASON FOR EXAM: SOB TECHNIQUE: CHEST PA AND LATERAL COMPARISON: 07/27/2024 FINDINGS: Normal heart size. Elevated right hemidiaphragm. Chronic interstitial lung disease. Slight under aeration at the lung bases. Tiny bilateral effusions. No consolidation, large effusion or pneumothorax. RAD/Chest PA and Lateral IMPRESSION: Under aerated lungs. Tiny bilateral effusions. Interstitial lung disease which appears chronic. Reading Location: [facility]-
[2025-03-24 23:07] LABS: Pro- Brain NATRIURETIC PEPTIDE 556 pg/mL (<=900); Troponin T High Sensitivity 7 ng/L (<=14)
[2025-03-24 23:08] LABS: AST(SGOT) 83 U/L (<=31); Alanine Aminotransfer ALT/SGPT 114 U/L (<=34); Albumin, Serum 3.7 g/dL (3.4-4.8); Alkaline Phosphatase 110 U/L (35-104); Anion Gap 12 (5-15); BUN 8 mg/dL (4-19); BUN/Creat Ratio 10.6 RATIO (10-20); Calcium,Total 8.9 mg/dL (7.6-11.0); Carbon Dioxide 26.4 mmol/L (21.0-32.0); Chloride 102 mmol/L (98-108); Estimated Creatinine Clearance 89.83 ml/min (50-250); Globulin 2.9 g/dL (2.2-4.2); Glucose 200 mg/dL (70-99); Lipase 33 U/L (13-75); Potassium 3.7 mmol/L (3.3-5.1)
[2025-03-24 23:15] LABS: D-Dimer Quantitative (DVT/PE) 0.76 FEU/ug/m (0.27-0.49)
--- NOTE | 2025-03-24 23:17 | CT_ITS ---
PROCEDURE: CTA CHST, ABD, PEL W AND/OR WO 03/24/2025 REASON FOR EXAM: EPIGASTRIC PAIN, SOB, ELEVATED D-DIMER TECHNIQUE: CTA CHST, ABD, PEL W AND/OR WO coronal and Sagittal reconstruction series were provided. One or more dose reduction techniques were used (e.g., Automated exposure control, adjustment of the mA and/or kV according to patient size, use of iterative reconstruction technique. CONTRAST: Isovue 370 VOLUME: 94 mL RADIATION DOSE SUMMARY: CTDlvol: 65 mGy DLP: 2000 and debris mGycm COMPARISON: Chest CT 07/27/2024 FINDINGS: Unremarkable base of neck and axilla. Normal esophagus. Normal heart size. No aortic dissection. No pulmonary embolism. Central airways show lower lobe bronchial debris and bronchial wall thickening. There are small, pgnmo-pqkbrhj-qlge-left, effusions with adjacent compressive atelectasis. There are multifocal, bilateral, small areas of somewhat rounded airspace disease favoring infection. No pneumothorax. Diffuse hepatic steatosis and hepatomegaly, correlate for possible hepatitis. Gallbladder is contracted and not well assessed. Unremarkable pancreas, adrenal glands. Heterogeneous spleen, likely technical in nature. Small simple renal cysts. No hydronephrosis. Unremarkable bladder. Status post hysterectomy. No retroperitoneal or pelvic adenopathy. No free air. Nondistended bowel. No signs of appendicitis. No acute large bowel findings. Lumbar spine scoliosis, degeneration, prior surgery. Stimulator wires enter lower thoracic canal. No acute abdominal wall findings. CT/CTA Chst, Abd, Pel W and/or WO IMPRESSION: Bilateral pneumonia. Possible hepatitis. Reading Location: [place] [address]
[2025-03-24 23:23] VITALS: BP 158/74; PULSE 58; RESP 18; TEMP 37.1; O2SAT 93
[2025-03-25] VITALS (16 sets, daily range): BP systolic 142–179; BP diastolic 67–89; PULSE 52–70; RESP 15–32; TEMP 36.3–37.1; O2SAT 87–99; BMI 46.6
[2025-03-25] MEDS: Piperacil/Tazobactam 4.5 GM in 0.9% Normal Saline (100mL MB+) 100 ML IV (01:04)
--- NOTE | 2025-03-25 03:42 | PCM.HP.STD ---
[facility] - General General Date of Service: 03/25/25 Chief Complaint: Shortness of breath HPI Narrative FLEX WOOTEN, is a 64 F who presents with 1 day history of shortness of breath. Patient was discharged on the of this month for UTI and encephalopathy. Was doing well at home but then started getting short of breath yesterday was having some epigastric discomfort. Presented to the emergency room and had an CTA of her chest abdomen pelvis that showed pleural effusions as well as concern for pneumonia. Patient received pip-tazo in the emergency room. Patient was ambulated and her pulse ox dropped down to 83% on room air and the hospital service was contacted. Patient states that she has edema in her legs but does not note any change with that. On further review the looks like that her weight has gone up over 6 kg since the . She denies any fever or chills. 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 Hallux rigidus, left foot MRSA infection Uses wheelchair Walker as ambulation aid High cholesterol CPAP (continuous positive airway pressure) dependence Sleep apnea Hypothyroidism Anxiety disorder, unspecified Chronic pain Depressive 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 Obesity hypoventilation syndrome Obesity Normal stress echocardiogram Wears glasses PTSD (post-traumatic stress disorder) Depression Anxiety Thyroid disease Insulin dependent diabetes mellitus Ambulates with cane Fibromyalgia Arthritis DVT (deep venous thrombosis) High cholesterol Migraine headache Back pain Gait instability Syncope Dietary restriction History of diverticulitis Gastric reflux Former smoker ASV (adaptive servo-ventilation) use counseling On home oxygen therapy Shortness of breath on exertion Leg cramps History of pain when walking History of edema History of stress test Hypertension Implantable intrathecal infusion pump present Mixed connective tissue disease Osteoarthritis History of DVT (deep vein thrombosis) History of pulmonary embolus (PE) Atrophic vaginitis Bone spur Osteoarthritis calcium calcifications Mixed connective tissue disease History of neuropathy History of spinal stenosis History of diabetes mellitus Acromioclavicular arthrosis Strain of shoulder, left Neck pain Limb weakness Difficulty balancing Fatigue Shoulder pain Gastroesophageal reflux disease DJD (degenerative joint disease) of lumbar spine Home Medications ?Medication ?Instructions ?Recorded ?Last Taken ?Type omeprazole 40 mg capsule,delayed 40 mg PO DAILY GERD 08/30/13 02/20/24 History release levothyroxine 50 mcg tablet 50 mcg PO DAILY thyroid 10/21/17 09/15/22 History atenolol 25 mg tablet 25 mg PO DAILY heart 05/18/19 02/18/24 History methotrexate sodium 2.5 mg tablet 20 mg PO FR fibromyalgia 08/19/20 09/10/22 History leucovorin calcium 10 mg tablet 5 mg PO FR supplement 12/08/20 09/10/22 History cholecalciferol (vitamin D3) 25 25 mcg PO DAILY supplement 09/13/22 09/15/22 History mcg (1,000 unit) capsule clonidine HCl 0.1 mg tablet 0.1 mg PO Q8H PRN PRN 03/03/24 02/20/24 13:30 Rx Anxiety/tremors #1 TAB folic acid 1 mg tablet 1 mg PO BREAKFAST supplement #30 03/03/24 Unknown Rx tabs oxycodone-acetaminophen 5 mg-325 1 tab PO BID pain 07/27/24 Unknown History mg tablet lancets-blood glucose test #1 ea 07/28/24 Unknown Rx strips-pen needles with gauze kit gabapentin 100 mg capsule 100 mg PO TID nerve pain 90 days 09/03/24 Unknown Rx #270 caps blood-glucose sensor (FreeStyle #6 ea 09/21/24 Unknown Rx Prema 3 Plus Sensor device) insulin glargine-yfgn 100 unit/mL 52 unit (0.52 mL) subcut QHS 11/12/24 Unknown Rx (3 mL) subcutaneous pen diabetes #5 pens escitalopram oxalate 20 mg tablet 20 mg PO DAILY for depressive 03/05/25 Unknown Rx disorder #90 TABLETS fenofibrate nanocrystallized 48 mg 48 mg PO DAILY 30 days #30 tabs 03/18/25 Unknown Rx tablet hydroxyzine pamoate 50 mg capsule 25 mg (1/2 x 50 mg) PO QHS mood 03/18/25 Unknown Rx #30 caps insulin lispro 100 unit/mL 25 unit (0.25 mL) subcut TIDWMEAL 03/18/25 Unknown Rx subcutaneous pen (Humalog KwikPen #15 mL (U-100) Insulin) lorazepam 0.5 mg tablet 0.5 mg PO TID #0 tabs 03/18/25 Unknown Rx tizanidine 4 mg tablet 2 mg (1/2 x 4 mg) PO TID PRN 03/18/25 Unknown Rx Muscle spasm 3 days #0 tabs trazodone 100 mg tablet 50 mg (1/2 x 100 mg) PO QHS mood 03/18/25 02/19/24 Rx 30 days #0 tabs ropinirole 1 mg tablet 1 mg PO BID 03/25/25 Unknown History Allergy/AdvReac Type Severity Reaction Status Date / Time niacin Allergy Itching Verified 03/24/25 22:08 venlafaxine AdvReac Severe Vomiting Verified 03/21/25 10:01 metformin AdvReac Intermediate Diarrhea Verified 03/21/25 10:01 Family History Sister Breast cancer Diabetes Kidney disease Other Arthritis Heart disease Surgical History History of bunionectomy of both great toes History of lumbar fusion History of total right knee replacement Hx of surgical procedure Hx of arthroscopic knee surgery History of carpal tunnel release Hx of hysterectomy History of back surgery Hx of total knee replacement hx of plantar fasciotomy Social History household members: spouse Smoking Status: Former smoker alcohol intake: never substance use type: does not use caffeine: No what type of physical activity do you participate in: none seatbelt use: always do you feel safe at home: Yes additional social history: [id number] at [employer] Patient is disabled ROS ROS Narrative All review of systems were negative except as mentioned above in the history of present illness and the other review of systems. Vital Signs Vital Signs Vital Signs: 03/24/25 22:07 03/24/25 22:24 03/24/25 22:27 Temperature 36.7 C 36.9 C Temperature Source Temporal Oral Pulse Rate 79 74 Respiratory Rate 25 H 19 H Respiratory Effort Short of Breath Respiratory Depth Shallow Respiratory Pattern Tachypnea Blood Pressure 168/80 H 168/80 H Blood Pressure Mean 109 109 Pulse Ox 96 94 Oxygen Delivery Method Room Air Room Air Room Air 03/24/25 22:47 03/24/25 22:48 03/24/25 23:23 Temperature 37.1 C Temperature Source Oral Pulse Rate 64 58 L Respiratory Rate 22 H 18 Respiratory Effort Respiratory Depth Respiratory Pattern Tachypnea Blood Pressure 158/74 H Blood Pressure Mean 102 Pulse Ox 94 93 Oxygen Delivery Method Room Air Room Air 03/25/25 00:00 03/25/25 01:00 03/25/25 01:00 Temperature 37.1 C 37.1 C Temperature Source Oral Oral Pulse Rate 53 L 52 L 54 L Respiratory Rate 18 18 24 H Respiratory Effort Respiratory Depth Respiratory Pattern Blood Pressure 142/68 H 158/83 H 152/69 H Blood Pressure Mean 92 108 96 Pulse Ox 93 93 91 Oxygen Delivery Method Room Air Room Air 03/25/25 02:00 03/25/25 02:00 03/25/25 03:00 Temperature 36.6 C Temperature Source Oral Pulse Rate 52 L 53 L 55 L Respiratory Rate 24 H 32 H 20 H Respiratory Effort Respiratory Depth Respiratory Pattern Blood Pressure 156/88 H 156/88 H 147/84 H Blood Pressure Mean 110 110 105 Pulse Ox 94 92 90 Oxygen Delivery Method Room Air Room Air 03/25/25 03:25 Temperature 36.8 C Temperature Source Pulse Rate 61 Respiratory Rate 18 Respiratory Effort Respiratory Depth Respiratory Pattern Blood Pressure 147/84 H Blood Pressure Mean 105 Pulse Ox 92 Oxygen Delivery Method Weight Weight: 123.6 kg Body Mass Index (BMI) 46.7 Physical Exam Const alert and no apparent distress Constitutional Narrative: No respiratory distress. No conversational dyspnea. On room air. HEENT normocephalic and head/scalp atraumatic Neck no lymphadenopathy Neck Narrative: No thyromegaly. Unable to appreciate any JVD due to her neck tissue Resp Resp Narrative: Diminished in the bases with crackles throughout. Cardio regular rate, regular rhythm, S1 normal heart sound and S2 normal heart sound GI normal to inspection, nondistended, normoactive bowel sounds GI Narrative: Obese but soft and nontender. Extremity Extremity Narrative: Bilateral lower extremity edema. Nonpitting. Skin Skin Narrative: Venous stasis changes to right lower extremity. Neuro moves all extremities Sensorium / Orientation: awake Speech: speech normal Psych affect normal Results Lab / Micro Data Attestation: I reviewed the patient's lab results. 03/24/25 22:43 03/24/25 22:43 Labs: Laboratory Results - last 24 hr 03/24/25 22:43: WBC 8.1, RBC 4.37, Hgb 12.9, Hct 39.6, MCV 90.6, MCH 29.5, MCHC 32.6, RDW Std Deviation 45.9 H, RDW Coeff of Mouna 13.9, Plt Count 227, MPV 9.4, Immature Gran % (Auto) 0.500, Neut % (Auto) 67.8, Lymph % (Auto) 23.4, Hettinger % (Auto) 5.6, Eos % (Auto) 2.2, Baso % (Auto) 0.5, Absolute Neuts (auto) 5.5, Absolute Lymphs (auto) 1.89, Nucleated RBC % 0, D-Dimer Quant (PE/DVT) 0.76 H*, Sodium 141, Potassium 3.7, Chloride 102, Carbon Dioxide 26.4, Anion Gap 12, BUN 8, Creatinine 0.72, Estim Creat Clear Calc 89.83, Est GFR (MDRD) Non-Af 93, BUN/Creatinine Ratio 10.6, Glucose 200 H, Lactic Acid 1.8, Calcium 8.9, Total Bilirubin 0.42, AST 83 H, ALT 114 H, Alkaline Phosphatase 110 H, Troponin T High Sens 7, NT pro BNP II 556, Total Protein 6.6, Albumin 3.7, Globulin 2.9, Albumin/Globulin Ratio 1.3, Lipase 33 EKG Initial EKG: Attestation: I personally reviewed and interpreted this EKG as follows: Prior EKG tracings: available for review EKG Rhythm Intrepretation: Sinus Rhythm Imaging Radiology Impression Chest X-Ray 03/24/25 23:00 IMPRESSION: Under aerated lungs. Tiny bilateral effusions. Interstitial lung disease which appears chronic. Reading Location: [facility] Chest/Abdomen/Pelvis CTA 03/24/25 23:17 IMPRESSION: Bilateral pneumonia. Possible hepatitis. Reading Location: [facility] Assessment & Plan Assessment/Plan (1) (HFpEF) heart failure with preserved ejection fraction: PLAN: Acute. Weight is gone up 6 kg since the . Patient has pleural effusions on her CAT scan. Is commented that she has infiltrate but I suspect is more pulmonary vascular congestion. I do not feel the patient has pneumonia additionally because she is afebrile and has no leukocytosis. Plan is to give her diuresis with IV furosemide. Patient did have an echocardiogram on November 29, 2024 that showed an EF of 60%. Repeat the echocardiogram to see if there is been any changes. I did discuss heart failure been more details with the patient and significant other at bedside. Explained to them that the year is in the term this is a very treatable process with medications as well as diet. PLAN: Plan Chronic medical conditions Diabetes mellitus type 2: Continue with the basal and prandial insulin and sliding scale insulin. Hypothyroidism: Continue levothyroxine Chronic pain: Patient has a hydromorphone pump. She is also ordered as outpatient Percocet Anxiety: Chronically receives lorazepam Obesity class III: Complicates care and recovery. VTE prophylaxis with enoxaparin Charges/Coding Visit Charges Inpatient E&M: 34886 Init Hosp L3
--- NOTE | 2025-03-25 04:29 | ECHOLC_ITS ---
Reason For Study Reason For Study: CHF Procedure This was a limited 2D transthoracic echocardiogram. Contrast injection was performed. Exam performed portable in patient room. Left Ventricle Normal LV size. The estimated ejection fraction is 65 %. No regional wall motion abnormalities noted. Right Ventricle Normal RV size. Normal systolic function. Atria Normal left atrium. Mitral Valve Normal mitral valve. Tricuspid Valve Normal tricuspid valve. Mild (1+) tricuspid valve insufficiency. Pulmonary artery systolic pressure is 30 mmHg. Pericardium/Pleural No pericardial effusion. Medication Diluted definity 1ml given slow IV push to enhance endocardial definition. MMode/2D Measurements & Calculations LVIDd: 5.4 cm IVSd: 1.1 cm LVAd ap4: 34.8 cm2 LVIDs: 3.6 cm LVPWd: 1.1 cm LVLd ap4: 7.9 cm FS: 33.9 % EDV(MOD-sp4): 127.9 ml EDV(sp4-el): 130.3 ml LVAs ap4: 18.4 cm2 LVLs ap4: 6.1 cm ESV(MOD-sp4): 45.7 ml ESV(sp4-el): 47.1 ml EF(MOD-sp4): 64.3 % EF(sp4-el): 63.8 % SV(MOD-sp4): 82.2 ml SV(sp4-el): 83.2 ml SI(MOD-sp4): 36.9 ml/m2 Doppler Measurements & Calculations TR max lily: 258.7 cm/sec TR max P.8 mmHg ECHO/Echo Limited w/Contrast Interpretation Summary Normal LV size. The estimated ejection fraction is 65 %. No regional wall motion abnormalities noted. The study was technically limited. Contrast injection was performed. Ordering Physician: Tre Anderson Referring Physician: Rica Padgett Performed By: Bryon Orta RCS
--- OUTSIDE RECORDS SUMMARY | 2025-03-25 04:56 | XMS RPT_ITS | CCD ---
Author Organization [facility] CliniSyma Care Team Providers Care Rn Gastroenterology Name Role Phone Mcintosh Azra ELLIS Unavailable PB DRUMMOND DR Admitting Unavailable PB DRUMMOND DR Attending Unavailable PB DRUMMOND DR Primary Care Unavailable Shonda York Primary Care Provider Rica Padgett DO Primary Care Provider Rica Padgett Unavailable Jesus Amezquita Unavailable Silvana Henderson Unavailable Unavailable Dr. Rica Padgett Primary Care Provider [phone] Dr. Roscoe Helton Attending Provider Dr. Pj [...] Padgett Referring Provider SAGE Ruiz Attending Provider [phone] Marie Dee Emergency Provider Dr. Adebayo Mckeon Admit Provider Dr. Adebayo Mckeon Attending Provider Dr. Adebayo Mckeon Other Provider Dr. Tre Anderson Attending Provider Dr. Tre Anderson Other Provider Dr. 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 HELPER-ARTIFICIAL PLASTIC EYE MAKERRICA Consulting Unavaila ble Malys DO, Rica Flex Primary Care Provider RENITA MIJARES Attending Unavailable RENITA MIJARES Referring Unavailable MALYS, RICA FLEX Primary Care Unavailable ChipErin lester Primary Care Provider Chip, Erin Primary Care Provider Rm Keating Attending Unavailable Malys, Rica Primary Care Unavailable Malys, Rica Primary Care Unavailable Tre Flores Attending Unavailable Malys, Rica Primary Care Unavailable Morgan Juárez Admitting Unavailable Parviz Gupta Attending Unavailable Morgan Juárez Consulting Unavailable Tarik Huizar Consulting Unavailable Adeli, Amir Consulting Unavailable Hinduja, Licha Consulting Unavailable Primitivo, Doreen Consulting Unavailable Zha, Sunitha Consulting Unavailable Jimbo, Anup Consulting Unavailable Maude, Avelina Consulting Unavailable Hector Rutledge Consulting Unavailable Perry Carlin Consulting Unavailable Akhil Hayes Consulting Unavailable Rosa M Orta Consulting Unavailable Payam West Consulting Unavailable Yamini Marquez Consulting Unavailable Bashir Jeter Consulting Unavailable Meghan, Mickeyd Castro Consulting UnavailBud Burgess Consulting Unavailable Abi Danielle Consulting Unavailable Allen George Consulting Unavailable Lauren Montez Consulting Unavailable Hannatashi, Yousef Consulting Unavailable Morgan Juárez Admitting Unavailable Alonso, Parviz Attending Unavailable Malys, Rica Primary Care Unavailable Morgan Juárez Consulting Unavailable Tarik Huizar Consulting Unavailable Adeangela, Leobardo Consulting Unavailable Hinduantwan, Licha Consulting Unavailable Primitivo, Doreen Consulting Unavailable Miguelina, Sunitha Consulting Unavailable Jimbo, Anup Consulting Unavailable Maude, Avelina Consulting Unavailable BitHector oconnell Consulting Unavailable Perry Carlin Consulting Unavailable Akhil Hayes Consulting Unavailable Rosa M Orta Consulting Unavailable Payam West Consulting Unavailable Yamini Marquez Consulting Unavailable Bashir Jeter Consulting Unavailable Meghan, Mickeyd Castro Consulting UnavailBud Burgess Consulting Unavailable Shashi, Abi Consulting Unavailable Allen George Consulting Unavailable Lauren Montez Consulting Unavailable Hannatashi, Yousef Consulting Unavailable Alonso, Parviz Consulting Unavailable Matt Oglesby Attending Unavailable Malys, Rica Primary Care Unavailable Marissa Ruiz Attending Unavailable Malys, Rica Primary Care Unavailable Marissa Ruiz Attending Unavailable Malys, Rica Referring Unavailable Malys, Rica Primary Care Unavailable Malys, Rica Primary Care Unavailable Pj Lee Attending Unavailable Malys, Rica Referring Unavailable Malys, Rica Primary Care Unavailable Marissa Ruiz Attending Unavailable Malys, Rica Primary Care Unavailable Mosteller, David Admitting Unavailable Jopperi, Tre Attending Unavailable Mosteller, David Consulting Unavailable Malys, Rica Primary Care Unavailable Jopperi, Tre Admitting Unavailable Jopperi, Tre Attending Unavailable Malys, Rica Attending Unavailable Malys, Rica Referring Unavailable Malys, Rica Primary Care Unavailable Sibilia, Deuce V Referring Unavailable Sibilia, Deuce V Attending Unavailable Malys, Rica Primary Care Unavailable Rafi Berry Attending Unavailable Wunning Rafi Referring Unavailable Malys, Rica Primary Care Unavailable Mosteller, David Admitting Unavailable Mosteller, David Consulting Unavailable Malys, Rica Primary Care Unavailable Jopperi, Tre Attending Unavailable Jopperi, Tre Consulting Unavailable Jopperi, Tre Attending Unavailable Malys, Rica Primary Care Unavailable Morgan Juárez Attending Unavailable Pj Lee Attending Unavailable Malys, Rica Primary Care Unavailable Michi Lind Attending Unavailable Malys, Rica Referring Unavailable Malys, Rica Primary Care Unavailable Pj Lee Attending Unavailable Malys, Rica Primary Care Unavailable Basali, Ayman Attending Unavailable Basali, Ayman Referring Unavailable Malys, Rica Primary Care Unavailable Malys, Rica Attending Unavailable Malys, Rica Primary Care Unavailable Malys, Rica Attending Unavailable Malys, Rica Referring Unavailable Malys, Rica Primary Care Unavailable Kristi, Rafi Attending Unavailable Carmening, Rafi Referring Unavailable Malys, Rica Primary Care Unavailable Stokes, Uday Referring Unavailable Stokes, Uday Attending Unavailable Malys, Rica Primary Care Unavailable Joseph, Marissa Attending Unavailable Malys, Rica Referring Unavailable Malys, Rica Primary Care Unavailable Joseph, Marissa Attending Unavailable Malys, Rica Referring Unavailable Malys, Rica Primary Care Unavailable Pj Lee Attending Unavailable Malys, Rica Primary Care Unavailable Joseph, Marissa Attending Unavailable Malys, Rica Referring Unavailable Malys, Rica Primary Care Unavailable David Caruso Attending Unavailable Allergies Allergy Classification Reported Allergen(s) Allergy Type Date of Onset Reaction(s) Facility Anti-Epileptic Agents (2 sources) gabapentin Drug Allergy 5 Mental Status Change [facility] Work Phone: Niacin (1 source) Niacin Drug Allergy 7 Rash, Hives, Itching [facility] (2 sources) gabapentin Drug Allergy 6 hives, light headed [facility] (1 source) gabapentin Drug Allergy Hives/Urticaria [facility] (8 sources) Cephalexin Drug Allergy 2 Other [facility] (16 sources) Niacin; Translations: [NIACIN] Drug Allergy 7 Rash, Hives, Itching [facility] (5 sources) gabapentin; Translations: [GABAPENTIN] Drug Allergy 5 Mental Status Change [facility] Work Phone: (2 sources) metFORMIN Drug Allergy 3 Diarrhea [facility] (3 sources) venlafaxine; Translations: [VENLAFAXINE] Drug Allergy 4 [facility] (2 sources) Niacin Drug Allergy 3 [facility] (1 source) Cephalexin Drug Allergy 5 [facility] (1 source) metFORMIN Drug Allergy 5 [facility] (1 source) Niacin Drug Allergy 5 [facility] (1 source) venlafaxine Drug Allergy 5 [facility] Medications Current Medications Medication [...] 1 tab po q6h as needed HYDROCODONE-ACETAMINOPHEN [id number] Rica Padgett DO acetaminophen 325 mg / oxyCODONE hydrochloride 5 [...] 2 TABLET PO EVERY 4 HOURS NEEDED 30 October 28, 2017 12:00am January 17, 2018 11:09am [...] Complex 50 oral tablet (3 sources) Start: 023 take 1 tablet by mouth once daily B Complex 50 oral tablet Dose = 1 tab(s), Oral, Daily, # 30 tab(s), 0 Refill(s) Start Date: 02/03/23 Status: Ordered calcium carbonate 1250 mg / cholecalciferol 125 unt oral tablet (6 sources) Vitamin D Start: 022 take 1 tablet by mouth once daily [...] Start: 12-15-2019 take 4 tablets by mo ut at bedtime Citalopram (Celexa) 10 mg tablet [...] affected area daily as needed DICLOFENAC SODIUM [id number] Rica Padgett DO Diclofenac Sodiu m (Voltaren) 1 % gel [...] Ordered Start: 02-03-2023 take 1 capsule by [facility] three times daily gabapentin 300 mg oral [...] MG TABS 1 po daily HYDROXYZINE HCL [id number] Rica Padgett DO Start: 08-30-2013 take 100 [...] mg tablet Active 0 PO .COMPLEX 6 January 25, 2022 4:20pm take TWO 150 mg tablets of nirmatrelvir with ONE 100 mg tablet of ritonavir twice daily for 5 days Start: 01-25-2022 End: 03-29-2022 Nirmatrelvir-Ritonavir (Paxl ovid (Eua)) 150 mg x 2- 100 mg tablet Discontinued 0 PO .COMPLEX 6 January 24, 2022 11:00pm March 29, 2022 [...] 20 MG TABS 1 po daily RIVAROXABAN [id number] Adebayo Saunders DO take 2 tablets by mo [facility] once daily rivaroxaban (XARELTO) 10 mg [...] (19 sources) HMG-CoA Reductase Inhibitor Start: 10-21-19 take 1 tablet by mouth once daily [...] Start: 10-20-2011 take 1 tablet by armen once daily at bedtime traZODone (Desyrel) 100 mg tablet Take 1 tablet (100 mg) by mouth once daily at bedtime. 0 07/10/2023 Active Comment on above: Take 1 tablet by armen daily at bedtime. vitamin b6 100 mg [...] Drug Class(es) Dates Sig (Normalized) Sig (Original) [id number] actuat albuterol 0.09 mg/actuat metered dose [...] on above: Take by mouth. estrogens, conjugated (long term) 0.625 mg/ml vaginal cream (8 sources) Estrogen [...] MG TABS 1 po daily LISINOPRIL-HYDROCHLOROTH IAZIDE [id number] Rica Padgett DO Start: 12-06-2014 End: 09-17-2022 [...] 20 mg oral tablet (8 sources) Start: 018 End: take 60 mg by mouth once daily at mealtime Prednisone Discontinued 60 MG PO DAILY April 20, 2018 11:00pm October 30, 2018 8:54am With food sertraline 50 mg oral tablet (14 sources) Serotonin Reuptake Inhibitor Start: 014 End: 018 take 50 mg by mouth once [...] [Unspecified abdominal pain] Onset: 7 12-09-2016 Episodic Congestive heart failure; nonhypertensive (1 source) Unspecified diastolic (congestive) heart failure; Translations: [Unspecified diastolic (congestive) heart failure] Onset: 5 Chronic Diabetes mellitus with complications (7 sources) Neuropathy [...] 0 Chronic Other aftercare (1 source) Other usp (current) drug therapy; Translations: [Other salvage determiner (current) drug therapy] Onset: 5 Episodic Other [...] Test Name Value Interpretation Reference Range Facility H AND P Exam - [facility] 03-25-2025 H&P Exam - Hospitalist Normal [facility] Troponin T HS 2 HRon 025 Trop T High Sen Normal <=14 [facility] Comment on above: Result Comment: Keiko maldonado via OM: Ordered Performed By: #### L 499.0042 ####[facility] [address] [place], [address] Troponin T HS 4 HRon 025 Trop T High Sen Normal <=14 [facility] Comment on above: Result Comment: Keiko maldonado via OM: Ordered Performed By: #### L 499.0043 ####[facility] [address] [place], [address] CBC W/Diff, Automatedon 02-27 Absolute Lymph 1.89 X10 3/uL Normal 0.83-4.51 [facility] Comment on above: Performed By: #### L 501.2450, L500.4050, L100.0100, L300.8000 ####[facility] [address] [place], [address] Absolute Neut 5.5 X10 3/uL Normal 2.0-7.7 [facility] Comment on above: Performed By: #### L 501.2450, L500.4050, L100.0100, L300.8000 ####[facility] [address] [place], [address] Basophils/100 WBC (Bld) 0.5 % Normal 0-1 [facility] Comment on above: Performed By: #### L 501.2450, L500.4050, L100.0100, L300.8000 ####[facility] [address] [place], [address] Eosinophils/100 WBC (Bld) 2.2 % Normal 0-5 [facility] Comment on above: Performed By: #### L 501.2450, L500.4050, L100.0100, L300.8000 ####[facility] [address] [place], [address] Erythrocyte distribution width (RBC) [Ratio] 13.9 % Normal 11.6-14.6 [facility] Comment on above: Performed By: #### L 501.2450, L500.4050, L100.0100, L300.8000 ####[facility] [address] [place], [address] Hematocrit (Bld) [Volume fraction] 39.6 % Normal 37-47 [facility] Comment on above: Performed By: #### L 501.2450, L500.4050, L100.0100, L300.8000 ####[facility] [address] [place], [address] Hemoglobin (Bld) [Mass/Vol] 12.9 g/dL Normal 12.0-15.0 [facility] Comment on above: Performed By: #### L 501.2450, L500.4050, L100.0100, L300.8000 ####[facility] [address] [place], [address] IG% 0.500 Normal 0.0-0.9 [facility] Comment on above: Result Comment: IG% - Immature Granulocytes (promyelocytes, myelocytes andmetamyelocytes) > 1% indicates that a LEFT SHIFT is Present. Performed By: #### L 501.2450, L500.4050, L100.0100, L300.8000 ####[facility] [address] [place], [address] Lymphocytes/100 WBC (Bld) 23.4 % Normal 19-41 [facility] Comment on above: Performed By: #### L 501.2450, L500.4050, L100.0100, L300.8000 ####[facility] [address] [place], [address] MCH (RBC) [Entitic mass] 29.5 pg Normal 27.0-32.0 [facility] Comment on above: Performed By: #### L 501.2450, L500.4050, L100.0100, L300.8000 ####[facility] [address] [place], [address] MCHC (RBC) [Mass/Vol] 32.6 g/dL Normal 32-36 [facility] Comment on above: Performed By: #### L 501.2450, L500.4050, L100.0100, L300.8000 ####[facility] [address] [place], [address] MCV (RBC) [Entitic vol] 90.6 fL Normal 81-99 [facility] Comment on above: Performed By: #### L 501.2450, L500.4050, L100.0100, L300.8000 ####[facility] [address] [place], [address] Monocytes/100 WBC (Bld) 5.6 % Normal 0-10 [facility] Comment on above: Performed By: #### L 501.2450, L500.4050, L100.0100, L300.8000 ####[facility] [address] [place], [address] Neutrophils/100 WBC (Bld) 67.8 % Normal 47-70 [facility] Comment on above: Performed By: #### L 501.2450, L500.4050, L100.0100, L300.8000 ####[facility] [address] [place], [address] Nucleated RBC (Bld) [#/Vol] 0 10*3/uL Normal 0-5 [facility] Comment on above: Performed By: #### L 501.2450, L500.4050, L100.0100, L300.8000 ####[facility] [address] [place], [address] Platelet mean volume (Bld) [Entitic vol] 9.4 fL Normal 6.2-12.0 [facility] Comment on above: Performed By: #### L 501.2450, L500.4050, L100.0100, L300.8000 ####[facility] [address] [place], [address] Platelets (Bld) [#/Vol] 227 10*3/uL Normal 150-450 [facility] Comment on above: Performed By: #### L 501.2450, L500.4050, L100.0100, L300.8000 ####[facility] [address] [place], [address] RBC (Bld) [#/Vol] 4.37 10*6/uL Normal 4.2-5.4 [facility] Comment on above: Performed By: #### L 501.2450, L500.4050, L100.0100, L300.8000 ####[facility] [address] [place], [address] RDW SD 45.9 fl High 35.1-43.9 [facility] Comment on above: Performed By: #### L 501.2450, L500.4050, L100.0100, L300.8000 ####[facility] [address] [place], [address] WBC (Bld) [#/Vol] 8.1 10*3/uL Normal 4.4-11.0 [facility] Comment on above: Performed By: #### L 501.2450, L500.4050, L100.0100, L300.8000 ####[facility] [address] [place], [address] CTA Chst, Abd, Pel W and/or WOon 03-24-2025 CTA Chst, Abd, Pel W and/or WO Normal [facility] Chest PA and Lateralon 03-24 Chest PA and Lateral Normal [facility] Comprehensive Metabolic Prof ilon 03-24-2025 Albumin [Mass/Vol] 3.7 g/dL Normal 3.4-4.8 [facility] Comment on above: Performed By: #### L 501.2450, L500.4050, L100.0100, L300.8000 ####[facility] [address] [place], [address] Albumin/Globulin [Mass ratio] 1.3 {ratio} Normal 0.9-2.4 [facility] Comment on above: Performed By: #### L 501.2450, L500.4050, L100.0100, L300.8000 ####[facility] [address] [place], [address] ALK PHOS 110 U/L High 35-104 [facility] Comment on above: Performed By: #### L 501.2450, L500.4050, L100.0100, L300.8000 ####[facility] [address] [place], [address] ALT [Catalytic activity/Vol] 114 U/L High <=34 [facility] Comment on above: Performed By: #### L 501.2450, L500.4050, L100.0100, L300.8000 ####[facility] [address] [place], [address] AST [Catalytic activity/Vol] 83 U/L High <=31 [facility] Comment on above: Performed By: #### L 501.2450, L500.4050, L100.0100, L300.8000 ####[facility] [address] [place], [address] Bilirubin [Mass/Vol] 0.42 mg/dL Normal 0.00-1.30 [facility] Comment on above: Performed By: #### L 501.2450, L500.4050, L100.0100, L300.8000 ####[facility] [address] [place], [address] BUN/CRE 10.6 RATIO Normal 10-20 [facility] Comment on above: Performed By: #### L 501.2450, L500.4050, L100.0100, L300.8000 ####[facility] [address] [place], [address] Calcium [Mass/Vol] 8.9 mg/dL Normal 7.6-11.0 [facility] Comment on above: Performed By: #### L 501.2450, L500.4050, L100.0100, L300.8000 ####[facility] [address] [place], [address] Chloride [Moles/Vol] 102 mmol/L Normal 98-108 [facility] Comment on above: Performed By: #### L 501.2450, L500.4050, L100.0100, L300.8000 ####[facility] [address] [place], [address] CO2 [Moles/Vol] 26.4 mmol/L Normal 21.0-32.0 [facility] Comment on above: Performed By: #### L 501.2450, L500.4050, L100.0100, L300.8000 ####[facility] [address] [place], [address] Creatinine [Mass/Vol] 0.72 mg/dL Normal 0.70-1.20 [facility] Comment on above: Performed By: #### L 501.2450, L500.4050, L100.0100, L300.8000 ####[facility] [address] [place], [address] ECRCL 89.83 ml/min Normal 50-250 [facility] Comment on above: Performed By: #### L 501.2450, L500.4050, L100.0100, L300.8000 ####[facility] [address] [place], [address] GAP 12 Normal 5-15 [facility] Comment on above: Performed By: #### L 501.2450, L500.4050, L100.0100, L300.8000 ####[facility] [address] [place], [address] GFR/1.73 sq M.predicted among non-blacks MDRD (S/P/Bld) [Vol rate/Area] 93 mL/min/{1.73_m2} Normal >60 [facility] Comment on above: Result Comment: mL/m in/1.73m2 CKD-EPI Creatinine Equation (2020) Performed By: #### L 501.2450, L500.4050, L100.0100, L300.8000 ####[facility] [address] [place], [address] Globulin (S) [Mass/Vol] 2.9 g/dL Normal 2.2-4.2 [facility] Comment on above: Performed By: #### L 501.2450, L500.4050, L100.0100, L300.8000 ####[facility] [address] [place], [address] Glucose [Mass/Vol] 200 mg/dL High 70-99 [facility] Comment on above: Performed By: #### L 501.2450, L500.4050, L100.0100, L300.8000 ####[facility] [address] [place], [address] Potassium [Moles/Vol] 3.7 mmol/L Normal 3.3-5.1 [facility] Comment on above: Performed By: #### L 501.2450, L500.4050, L100.0100, L300.8000 ####[facility] [address] [place], [address] Sodium [Moles/Vol] 141 mmol/L Normal 133-145 [facility] Comment on above: Performed By: #### L 501.2450, L500.4050, L100.0100, L300.8000 ####[facility] [address] [place], [address] T PROT 6.6 g/dL Normal 5.9-8.4 [facility] Comment on above: Performed By: #### L 501.2450, L500.4050, L100.0100, L300.8000 ####[facility] [address] [place], [address] Urea nitrogen [Mass/Vol] 8 mg/dL Normal 4-19 [facility] Comment on above: Performed By: #### L 501.2450, L500.4050, L100.0100, L300.8000 ####[facility] [address] [place], [address] D-Dimer Quantitative (DVT/PE )on 03-24-2025 D-DIMER QUANT 0.76 FEU/ug/m Invalid Interpretation Code 0.27-0.49 [facility] Comment on above: Result Comment: D-Di kareen ELEVATED (>0.49): Additional studies and clinicalassessments are indicated to conclude diagnosis of:Deep Vein Thrombosis (DVT) or Pulmonary Embolism (PE)CRITICAL VALUE CALLED TO [facility]03/24/25 Mario Luis.RESULTS READ BACK BY SAME. Performed By: #### L 501.2450, L500.4050, L100.0100, L300.8000 ####[facility] [address] [place], [address] Emergency Department Summary on 03-24-2025 Emergency Department Summary Normal [facility] L501.4021on 03-24-2025 Trop T High Sen 7 ng/L Normal <=14 [facility] Comment on above: Performed By: #### L 503.6005, L503.7505, L501.4021 ####[facility] [address] [place], [address] Lactic Acidon 03-24-2025 Lactate [Moles/Vol] 1.8 mmol/L Normal 0.0-2.0 [facility] Comment on above: Order Comment: Y Performed By: #### L 503.6005, L503.7505, L501.4021 ####[facility] [address] [place], [address] Lipaseon 03-24-2025 Lipase [Catalytic activity/Vol] 33 U/L Normal 13-75 [facility] Comment on above: Result Comment: Sherri martinez note:LIPASE revised reference range effective 22.New Lipase methodology. Expected to produce lower valuesthan the previous assay method.NEW Reference Range: 13 - 75 U/L Performed By: #### L 501.2450, L500.4050, L100.0100, L300.8000 ####[facility] [address] [place], [place], [address] Pro- Brain NATRIURETIC PEPTI Sonia 03-24-2025 Natriuretic peptide B (Bld) [Mass/Vol] 556 pg/mL Normal <=900 [facility] Comment on above: Result Comment: Hear t Failure Unlikely: < 300 pg/mLHeart Failure Likely< 50 Years: > 450 pg/mL50-75 Years: > 900 pg/mL>75 Years: > 1800 pg/mL Performed By: #### L 503.6005, L503.7505, L501.4021 ####[facility] [address] [place], [place], [address] Endocrinology Visit Reporton 03-21-2025 Endocrinology Visit Report Normal [facility] Basic Metabolic Profile (BMP )on 03-18-2025 BUN/CRE 12.7 RATIO Normal 10-20 [facility] Comment on above: Order Comment: REDRA W. PREVIOUS SPECIMEN REJECTED DUE TOHEMOLYSIS. 03/18/25622 Dc R Hartman. Performed By: #### L 500.2500 ####[facility] [address] [place], [place], [address] Calcium [Mass/Vol] 9.1 mg/dL Normal 7.6-11.0 [facility] Comment on above: Order Comment: REDRA W. PREVIOUS SPECIMEN REJECTED DUE TOHEMOLYSIS. 03/18/25622 Dc R Hartman. Performed By: #### L 500.2500 ####[facility] [address] [place], [address] Chloride [Moles/Vol] 98 mmol/L Normal 98-108 [facility] Comment on above: Order Comment: REDRA W. PREVIOUS SPECIMEN REJECTED DUE TOHEMOLYSIS. 03/18/25622 Dc R Hartman. Performed By: #### L 500.2500 ####[facility] [address] [place], [place], [id number](237 CO2 [Moles/Vol] 25.9 mmol/L Normal 21.0-32.0 [facility] Comment on above: Order Comment: REDRA W. PREVIOUS SPECIMEN REJECTED DUE TOHEMOLYSIS. 03/18/25622 Dc R Hartman. Performed By: #### L 500.2500 ####[facility] [address] [place], [address] Creatinine [Mass/Vol] 0.62 mg/dL Low 0.70-1.20 [facility] Comment on above: Order Comment: REDRA W. PREVIOUS SPECIMEN REJECTED DUE TOHEMOLYSIS. 03/18/25622 Dc R Hartman. Performed By: #### L 500.2500 ####[facility] [address] [place], [address] ECRCL 88.86 ml/min Normal 50-250 [facility] Comment on above: Order Comment: REDRA W. PREVIOUS SPECIMEN REJECTED DUE TOHEMOLYSIS. 03/18/25622 Dc R Hartman. Performed By: #### L 500.2500 ####[facility] [address] [place], [address] GAP 13 Normal 5-15 [facility] Comment on above: Order Comment: REDRA W. PREVIOUS SPECIMEN REJECTED DUE TOHEMOLYSIS. 03/18/25622 Dc R Hartman. Performed By: #### L 500.2500 ####[facility] [address] [place], [address] GFR/1.73 sq M.predicted among non-blacks MDRD (S/P/Bld) [Vol rate/Area] 98 mL/min/{1.73_m2} Normal >60 [facility] Comment on above: Order Comment: REDRA W. PREVIOUS SPECIMEN REJECTED DUE TOHEMOLYSIS. 03/18/25622 Dc R Hartman. Result Comment: mL/m in/1.73m2 CKD-EPI Creatinine Equation (2020) Performed By: #### L 500.2500 ####[facility] [address] [place], [address] Glucose [Mass/Vol] 287 mg/dL High 70-99 [facility] Comment on above: Order Comment: REDRA W. PREVIOUS SPECIMEN REJECTED DUE TOHEMOLYSIS. 03/18/25622 Dc R Hartman. Performed By: #### L 500.2500 ####[facility] [address] [place], [address] Potassium [Moles/Vol] 3.7 mmol/L Normal 3.3-5.1 [facility] Comment on above: Order Comment: REDRA W. PREVIOUS SPECIMEN REJECTED DUE TOHEMOLYSIS. 03/18/25622 Dc R Hartman. Performed By: #### L 500.2500 ####[facility] [address] [facility] [address] Sodium [Moles/Vol] 137 mmol/L Normal 133-145 [facility] Comment on above: Order Comment: REDRA W. PREVIOUS SPECIMEN REJECTED DUE TOHEMOLYSIS. 03/18/25622 Dc R Hartman. Performed By: #### L 500.2500 ####[facility] [address] [facility] [address] Urea nitrogen [Mass/Vol] 8 mg/dL Normal 4-19 [facility] Comment on above: Order Comment: REDRA W. PREVIOUS SPECIMEN REJECTED DUE TOHEMOLYSIS. 03/18/25622 Dc R Hartman. Performed By: #### L 500.2500 ####[facility] [address] [facility] [address] BUN Normal 4-19 [facility] Comment on above: Result Comment: This specimen has been REJECTED due to Laboratory criteria:Hemolyzed.LMARTELL has been notified of need of recollection.03/18/25621 Dc R Hartman Performed By: #### L 100.0100, L500.2500 ####[facility] [address] [place], [address] BUN/CRE Normal 10-20 [facility] Comment on above: Result Comment: This specimen has been REJECTED due to Laboratory criteria:Hemolyzed.[facility] notified [facility] need of recollection.03/18/25621 Dc R Hartman Performed By: #### L 100.0100, L500.2500 ####[facility] [address] [place], [address] Calcium Normal 7.6-11.0 [facility] Comment on above: Result Comment: This specimen has been REJECTED due to Laboratory criteria:Hemolyzed.[facility] has been notified of need of recollection.03/18/25621 Dc R Hartman Performed By: #### L 100.0100, L500.2500 ####[facility] [address] [place], [address] CL Normal 98-108 [facility] Comment on above: Result Comment: This specimen has been REJECTED due to Laboratory criteria:Hemolyzed.[facility] has been notified of need of recollection.03/18/25621 Dc R Hartman Performed By: #### L 100.0100, L500.2500 ####[facility] [address] [place], [address] CO2 Normal 21.0-32.0 [facility] Comment on above: Result Comment: This specimen has been REJECTED due to Laboratory criteria:Hemolyzed.[facility] has been notified of need of recollection.03/18/25621 Dc R Hartman Performed By: #### L 100.0100, L500.2500 ####[facility] [address] [place], [address] CREAT,SERUM Normal 0.70-1.20 [facility] Comment on above: Result Comment: This specimen has been REJECTED due to Laboratory criteria:Hemolyzed.[facility] has been notified of need of recollection.03/18/25621 Dc R Hartman Performed By: #### L 100.0100, L500.2500 ####[facility] [address] [place], [address] eGFR Normal >60 [facility] Comment on above: Result Comment: This specimen has been REJECTED due to Laboratory criteria:Hemolyzed.[facility] has been notified of need of recollection.03/18/25621 Dc R Hartman Performed By: #### L 100.0100, L500.2500 ####[facility] [address] [place], [address] GAP Normal 5-15 [facility] Comment on above: Result Comment: This specimen has been REJECTED due to Laboratory criteria:Hemolyzed.[facility] has been notified of need of recollection.03/18/25621 Dc R Hartman Performed By: #### L 100.0100, L500.2500 ####[facility] [address] [place], [address] GLU Normal 70-99 [facility] Comment on above: Result Comment: This specimen has been REJECTED due to Laboratory criteria:Hemolyzed.[facility] has been notified of need of recollection.03/18/25621 Dc R Hartman Performed By: #### L 100.0100, L500.2500 ####[facility] [address] [place], [address] Potassium Normal 3.3-5.1 [facility] Comment on above: Result Comment: This specimen has been REJECTED due to Laboratory criteria:Hemolyzed.[facility] has been notified of need of recollection.03/18/25621 Dc R Hartman Performed By: #### L 100.0100, L500.2500 ####[facility] [address] [place], [address] Basic Metabolic Profile (BMP) Normal 133-145 [facility] Comment on above: Result Comment: This specimen has been REJECTED due to Laboratory criteria:Hemolyzed.[facility] has been notified of need of recollection.03/18/25621 Dc R Hartman Performed By: #### L 100.0100, L500.2500 ####[facility] [address] [place], [address] Bedside Glucoseon 03-18-2025 FINGERSTICK GLU 208 mg/dL High 74-106 [facility] Comment on above: Result Comment: MARCELLA GEMENT OF PATIENT CARE PER NURSING PROTOCOL Performed By: #### L 501.080 ####[facility] [address] [place], [address] FINGERSTICK GLU 274 mg/dL High 74-106 [facility] Comment on above: Result Comment: MARCELLA GEMENT OF PATIENT CARE PER NURSING PROTOCOL Performed By: #### L 501.080 ####[facility] [address] [place], [address] FINGERSTICK GLU 285 mg/dL High 74-106 [facility] Comment on above: Result Comment: MARCELLA GEMENT OF PATIENT CARE PER NURSING PROTOCOL Performed By: #### L 501.080 ####[facility] [address] [place], [address] Brain/Head without Contrasto n 03-18-2025 Brain/Head without Contrast Normal [facility] CBC W/Diff, Automatedon - PLT EST ADEQUATE Normal ADEQ [facility] Comment on above: Performed By: #### L 100.0100, L500.2500 ####[facility] [address] [place], [address] PLT MORPH CLUMPED Normal [facility] Comment on above: Performed By: #### L 100.0100, L500.2500 ####[facility] [address] [place], [address] RED CELL MORPH NORM C+C Normal NORM C C [facility] Comment on above: Performed By: #### L 100.0100, L500.2500 ####[facility] [address] [place], [address] SMEAR COMMENT SCANNED Normal [facility] Comment on above: Performed By: #### L 100.0100, L500.2500 ####[facility] [address] [place], [address] Discharge Instructionon 02-27 Discharge Instruction Normal [facility] Basic Metabolic Profile (BMP )on 03-17-2025 BUN/CRE 13.7 RATIO Normal 10-20 [facility] Comment on above: Performed By: #### L 500.2500, L501.2300 ####[facility] [address] [place], [address] Calcium [Mass/Vol] 8.8 mg/dL Normal 7.6-11.0 [facility] Comment on above: Performed By: #### L 500.2500, L501.2300 ####[facility] [address] [place], [address] Chloride [Moles/Vol] 99 mmol/L Normal 98-108 [facility] Comment on above: Performed By: #### L 500.2500, L501.2300 ####[facility] [address] [place], [address] CO2 [Moles/Vol] 21.6 mmol/L Normal 21.0-32.0 [facility] Comment on above: Performed By: #### L 500.2500, L501.2300 ####[facility] [address] [place], [address] Creatinine [Mass/Vol] 0.69 mg/dL Low 0.70-1.20 [facility] Comment on above: Performed By: #### L 500.2500, L501.2300 ####[facility] [address] [place], [address] ECRCL 88.47 ml/min Normal 50-250 [facility] Comment on above: Performed By: #### L 500.2500, L501.2300 ####[facility] [address] [place], [address] GAP 15 Normal 5-15 [facility] Comment on above: Performed By: #### L 500.2500, L501.2300 ####[facility] [address] [place], [address] GFR/1.73 sq M.predicted among non-blacks MDRD (S/P/Bld) [Vol rate/Area] 96 mL/min/{1.73_m2} Normal >60 [facility] Comment on above: Result Comment: mL/m in/1.73m2 CKD-EPI Creatinine Equation (2020) Performed By: #### L 500.2500, L501.2300 ####[facility] [address] [place], [address] Glucose [Mass/Vol] 260 mg/dL High 70-99 [facility] Comment on above: Performed By: #### L 500.2500, L501.2300 ####[facility] [address] [place], [address] Potassium [Moles/Vol] 3.9 mmol/L Normal 3.3-5.1 [facility] Comment on above: Result Comment: Hemo lysis present, Results??could be affected.?? Performed By: #### L 500.2500, L501.2300 ####[facility] [address] [place], [address] Sodium [Moles/Vol] 135 mmol/L Normal 133-145 [facility] Comment on above: Performed By: #### L 500.2500, L501.2300 ####[facility] [address] [place], [address] Urea nitrogen [Mass/Vol] 9 mg/dL Normal 4-19 [facility] Comment on above: Performed By: #### L 500.2500, L501.2300 ####[facility] [address] [place], [address] Bedside Glucoseon 03-17-2025 FINGERSTICK GLU 256 mg/dL High 74-[address] [place] [address] Comment on above: Result Comment: MARCELLA GEMENT OF PATIENT CARE PER NURSING PROTOCOL Performed By: #### L 501.080 ####[facility] [address] [place], [address] FINGERSTICK GLU 190 mg/dL High [address] [place] [address] Comment on above: Result Comment: MARCELLA GEMENT OF PATIENT CARE PER NURSING PROTOCOL Performed By: #### L 501.080 ####[facility] [address] [place], [address] FINGERSTICK GLU 283 mg/dL High [address] [place] [address] Comment on above: Result Comment: MARCELLA GEMENT OF PATIENT CARE PER NURSING PROTOCOL Performed By: #### L 501.080 ####[facility] [address] [place], [address] FINGERSTICK GLU 275 mg/dL High [address] [place] [address] Comment on above: Result Comment: MARCELLA GEMENT OF PATIENT CARE PER NURSING PROTOCOL Performed By: #### L 501.080 ####[facility] [address] [place], [address] FINGERSTICK GLU 309 mg/dL High [address] [place] [address] Comment on above: Result Comment: MARCELLA GEMENT OF PATIENT CARE PER NURSING PROTOCOL Performed By: #### L 501.080 ####[facility] [address] [place], [address] CBC W/Diff, Automatedon 07-2 0-2024 Absolute Lymph 2.41 X10 3/uL Normal 0.83-4.51 [facility] Comment on above: Performed By: #### L 100.0100 ####[facility] [address] [place], [address] Absolute Neut 3.2 X10 3/uL Normal 2.0-7.7 [facility] Comment on above: Performed By: #### L 100.0100 ####[facility] [address] [place], [address] Basophils/100 WBC (Bld) 0.8 % Normal 0-1 [facility] Comment on above: Performed By: #### L 100.0100 ####[facility] [address] [place], [address] Eosinophils/100 WBC (Bld) 2.6 % Normal 0-5 [facility] Comment on above: Performed By: #### L 100.0100 ####[facility] [address] [place], [address] Erythrocyte distribution width (RBC) [Ratio] 13.6 % Normal 11.6-14.6 [facility] Comment on above: Performed By: #### L 100.0100 ####[facility] [address] [place], [address] Hematocrit (Bld) [Volume fraction] 39.7 % Normal 37-47 [facility] Comment on above: Performed By: #### L 100.0100 ####[facility] [address] [place], [address] Hemoglobin (Bld) [Mass/Vol] 13.2 g/dL Normal 12.0-15.0 [facility] Comment on above: Performed By: #### L 100.0100 ####[facility] [address] [place], [address] IG% 0.500 Normal 0.0-0.9 [facility] Comment on above: Result Comment: IG% - Immature Granulocytes (promyelocytes, myelocytes andmetamyelocytes) > 1% indicates that a LEFT SHIFT is Present. Performed By: #### L 100.0100 ####[facility] [address] [place], [address] Lymphocytes/100 WBC (Bld) 38.6 % Normal 19-41 [facility] Comment on above: Performed By: #### L 100.0100 ####[facility] [address] [place], [address] MCH (RBC) [Entitic mass] 29.0 pg Normal 27.0-32.0 [facility] Comment on above: Performed By: #### L 100.0100 ####[facility] [address] [place], [address] MCHC (RBC) [Mass/Vol] 33.2 g/dL Normal 32-36 [facility] Comment on above: Performed By: #### L 100.0100 ####[facility] [address] [place], [address] MCV (RBC) [Entitic vol] 87.3 fL Normal 81-99 [facility] Comment on above: Performed By: #### L 100.0100 ####[facility] [address] [place], [address] Monocytes/100 WBC (Bld) 5.9 % Normal 0-10 [facility] Comment on above: Performed By: #### L 100.0100 ####[facility] [address] [place], [address] Neutrophils/100 WBC (Bld) 51.6 % Normal 47-70 [facility] Comment on above: Performed By: #### L 100.0100 ####[facility] [address] [place], [address] Nucleated RBC (Bld) [#/Vol] 0 10*3/uL Normal 0-5 [facility] Comment on above: Performed By: #### L 100.0100 ####[facility] [address] [place], [address] Platelet mean volume (Bld) [Entitic vol] 9.2 fL Normal 6.2-12.0 [facility] Comment on above: Performed By: #### L 100.0100 ####[facility] [address] [place], [address] Platelets (Bld) [#/Vol] 221 10*3/uL Normal 150-450 [facility] Comment on above: Performed By: #### L 100.0100 ####[facility] [address] [place], [address] RBC (Bld) [#/Vol] 4.55 10*6/uL Normal 4.2-5.4 [facility] Comment on above: Performed By: #### L 100.0100 ####[facility] [address] [place], [address] RDW SD 42.8 fl Normal 35.1-43.9 [facility] Comment on above: Performed By: #### L 100.0100 ####[facility] [address] [place], [address] WBC (Bld) [#/Vol] 6.3 10*3/uL Normal 4.4-11.0 [facility] Comment on above: Performed By: #### L 100.0100 ####[facility] [address] [place], [address] MR/CON.PCM.NEon 03-17-2025 MR/CON.PCM.NE Normal [facility] Phosphoruson 03-17-2025 Phosphate [Mass/Vol] 3.2 mg/dL Normal 2.7-4.5 [facility] Comment on above: Performed By: #### L 500.2500, L501.2300 ####[facility] [address] [place], [address] Urine Cultureon 03-17-2025 URC Below infection leve l. Staphylococcus species [place] Count 1000-10,000 GPC Poss Enterococcus sp GPC Poss Enterococcus sp Normal [facility] Comment on above: Performed By: #### M 100.2200 ####[facility] [address] [place], [address] Bedside Glucoseon 03-16-2025 FINGERSTICK GLU 263 mg/dL High 74-106 [facility] Comment on above: Result Comment: MARCELLA GEMENT OF PATIENT CARE PER NURSING PROTOCOL Performed By: #### L 501.080 ####[facility] [address] [place], [address] FINGERSTICK GLU 294 mg/dL High 74-106 [facility] Comment on above: Result Comment: MARCELLA GEMENT OF PATIENT CARE PER NURSING PROTOCOL Performed By: #### L 501.080 ####[facility] [address] [place], [address] CBC W/Diff, Automatedon 02-26 Absolute Lymph 2.48 X10 3/uL Normal 0.83-4.51 [facility] Comment on above: Performed By: #### L 501.2300, L100.0100, L500.4100, L500.4050 ####[facility] [address] [place], [address] Absolute Neut 3.8 X10 3/uL Normal 2.0-7.7 [facility] Comment on above: Performed By: #### L 501.2300, L100.0100, L500.4100, L500.4050 ####[facility] [address] [place], [address] Basophils/100 WBC (Bld) 0.7 % Normal 0-1 [facility] Comment on above: Performed By: #### L 501.2300, L100.0100, L500.4100, L500.4050 ####[facility] [address] [place], [address] Eosinophils/100 WBC (Bld) 3.1 % Normal 0-5 [facility] Comment on above: Performed By: #### L 501.2300, L100.0100, L500.4100, L500.4050 ####[facility] [address] [place], [address] Erythrocyte distribution width (RBC) [Ratio] 13.9 % Normal 11.6-14.6 [facility] Comment on above: Performed By: #### L 501.2300, L100.0100, L500.4100, L500.4050 ####[facility] [address] [place], [address] Hematocrit (Bld) [Volume fraction] 40.6 % Normal 37-47 [facility] Comment on above: Performed By: #### L 501.2300, L100.0100, L500.4100, L500.4050 ####[facility] [address] [place], [address] Hemoglobin (Bld) [Mass/Vol] 13.1 g/dL Normal 12.0-15.0 [facility] Comment on above: Performed By: #### L 501.2300, L100.0100, L500.4100, L500.4050 ####[facility] [address] [place], [address] IG% 0.600 Normal 0.0-0.9 [facility] Comment on above: Result Comment: IG% - Immature Granulocytes (promyelocytes, myelocytes andmetamyelocytes) > 1% indicates that a LEFT SHIFT is Present. Performed By: #### L 501.2300, L100.0100, L500.4100, L500.4050 ####[facility] [address] [place], [address] Lymphocytes/100 WBC (Bld) 35.5 % Normal 19-41 [facility] Comment on above: Performed By: #### L 501.2300, L100.0100, L500.4100, L500.4050 ####[facility] [address] [place], [address] MCH (RBC) [Entitic mass] 29.0 pg Normal 27.0-32.0 [facility] Comment on above: Performed By: #### L 501.2300, L100.0100, L500.4100, L500.4050 ####[facility] [address] [place], [address] MCHC (RBC) [Mass/Vol] 32.3 g/dL Normal 32-36 [facility] Comment on above: Performed By: #### L 501.2300, L100.0100, L500.4100, L500.4050 ####[facility] [address] [place], [address] MCV (RBC) [Entitic vol] 90.0 fL Normal 81-99 [facility] Comment on above: Performed By: #### L 501.2300, L100.0100, L500.4100, L500.4050 ####[facility] [address] [place], [address] Monocytes/100 WBC (Bld) 6.4 % Normal 0-10 [facility] Comment on above: Performed By: #### L 501.2300, L100.0100, L500.4100, L500.4050 ####[facility] [address] [place], [address] Neutrophils/100 WBC (Bld) 53.7 % Normal 47-70 [facility] Comment on above: Performed By: #### L 501.2300, L100.0100, L500.4100, L500.4050 ####[facility] [address] [place], [address] Nucleated RBC (Bld) [#/Vol] 0 10*3/uL Normal 0-5 [facility] Comment on above: Performed By: #### L 501.2300, L100.0100, L500.4100, L500.4050 ####[facility] [address] [place], [address] Platelet mean volume (Bld) [Entitic vol] 9.2 fL Normal 6.2-12.0 [facility] Comment on above: Performed By: #### L 501.2300, L100.0100, L500.4100, L500.4050 ####[facility] [address] [place], [address] Platelets (Bld) [#/Vol] 221 10*3/uL Normal 150-450 [facility] Comment on above: Performed By: #### L 501.2300, L100.0100, L500.4100, L500.4050 ####[facility] [address] [place], [address] RBC (Bld) [#/Vol] 4.51 10*6/uL Normal 4.2-5.4 [facility] Comment on above: Performed By: #### L 501.2300, L100.0100, L500.4100, L500.4050 ####[facility] [address] [place], [address] RDW SD 45.9 fl High 35.1-43.9 [facility] Comment on above: Performed By: #### L 501.2300, L100.0100, L500.4100, L500.4050 ####[facility] [address] [place], [address] WBC (Bld) [#/Vol] 7.0 10*3/uL Normal 4.4-11.0 [facility] Comment on above: Performed By: #### L 501.2300, L100.0100, L500.4100, L500.4050 ####[facility] [address] [place], [address] Comprehensive Metabolic Prof delmis 03-16-2025 Albumin [Mass/Vol] 3.5 g/dL Normal 3.4-4.8 [facility] Comment on above: Performed By: #### L 501.2300, L100.0100, L500.4100, L500.4050 ####[facility] [address] [place], [address] Albumin/Globulin [Mass ratio] 1.1 {ratio} Normal 0.9-2.4 [facility] Comment on above: Performed By: #### L 501.2300, L100.0100, L500.4100, L500.4050 ####[facility] [address] [place], [address] ALK PHOS 114 U/L High 35-104 [facility] Comment on above: Performed By: #### L 501.2300, L100.0100, L500.4100, L500.4050 ####[facility] [address] [place], [address] ALT [Catalytic activity/Vol] 42 U/L High <=34 [facility] Comment on above: Performed By: #### L 501.2300, L100.0100, L500.4100, L500.4050 ####[facility] [address] [place], [address] AST [Catalytic activity/Vol] 71 U/L High <=31 [facility] Comment on above: Performed By: #### L 501.2300, L100.0100, L500.4100, L500.4050 ####[facility] [address] [place], [address] Bilirubin [Mass/Vol] 0.31 mg/dL Normal 0.00-1.30 [facility] Comment on above: Performed By: #### L 501.2300, L100.0100, L500.4100, L500.4050 ####[facility] [address] [place], [address] BUN/CRE 16.5 RATIO Normal 10-20 [facility] Comment on above: Performed By: #### L 501.2300, L100.0100, L500.4100, L500.4050 ####[facility] [address] [place], [address] Calcium [Mass/Vol] 8.6 mg/dL Normal 7.6-11.0 [facility] Comment on above: Performed By: #### L 501.2300, L100.0100, L500.4100, L500.4050 ####[facility] [address] [place], [address] Chloride [Moles/Vol] 103 mmol/L Normal 98-108 [facility] Comment on above: Performed By: #### L 501.2300, L100.0100, L500.4100, L500.4050 ####[facility] [address] [place], [address] CO2 [Moles/Vol] 26.0 mmol/L Normal 21.0-32.0 [facility] Comment on above: Performed By: #### L 501.2300, L100.0100, L500.4100, L500.4050 ####[facility] [address] [place], [address] Creatinine [Mass/Vol] 0.68 mg/dL Low 0.70-1.20 [facility] Comment on above: Performed By: #### L 501.2300, L100.0100, L500.4100, L500.4050 ####[facility] [address] [place], [address] ECRCL 88.47 ml/min Normal 50-250 [facility] Comment on above: Performed By: #### L 501.2300, L100.0100, L500.4100, L500.4050 ####[facility] [address] [place], [address] GAP 10 Normal 5-15 [facility] Comment on above: Performed By: #### L 501.2300, L100.0100, L500.4100, L500.4050 ####[facility] [address] [place], [address] GFR/1.73 sq M.predicted among non-blacks MDRD (S/P/Bld) [Vol rate/Area] 96 mL/min/{1.73_m2} Normal >60 [facility] Comment on above: Result Comment: mL/m in/1.73m2 CKD-EPI Creatinine Equation (2020) Performed By: #### L 501.2300, L100.0100, L500.4100, L500.4050 ####[facility] [address] [place], [address] Globulin (S) [Mass/Vol] 3.1 g/dL Normal 2.2-4.2 [facility] Comment on above: Performed By: #### L 501.2300, L100.0100, L500.4100, L500.4050 ####[facility] [address] [place], [address] Glucose [Mass/Vol] 223 mg/dL High 70-99 [facility] Comment on above: Performed By: #### L 501.2300, L100.0100, L500.4100, L500.4050 ####[facility] [address] [place], [address] Potassium [Moles/Vol] 4.2 mmol/L Normal 3.3-5.1 [facility] Comment on above: Performed By: #### L 501.2300, L100.0100, L500.4100, L500.4050 ####[facility] [address] [place], [address] Sodium [Moles/Vol] 139 mmol/L Normal 133-145 [facility] Comment on above: Performed By: #### L 501.2300, L100.0100, L500.4100, L500.4050 ####[facility] [address] [place], [address] T PROT 6.6 g/dL Normal 5.9-8.4 [facility] Comment on above: Performed By: #### L 501.2300, L100.0100, L500.4100, L500.4050 ####[facility] [address] [place], [address] Urea nitrogen [Mass/Vol] 11 mg/dL Normal 4-19 [facility] Comment on above: Performed By: #### L 501.2300, L100.0100, L500.4100, L500.4050 ####[facility] [address] [place], [address] Folates,Serum (Folic Acid)on 03-16-2025 FOLATES,SERUM 28.80 ng/mL Normal 4.60-34.80 [facility] Comment on above: Result Comment: Hemo lysis, Results will be affected, Requires Recollection. Performed By: #### L 501.9520, L506.0200, L501.9985, L501.5200 ####[facility] [address] [place], [address] Lipid Profileon 03-16-2025 CHOL:HDL 6.32 Normal [facility] Comment on above: Performed By: #### L 501.2300, L100.0100, L500.4100, L500.4050 ####[facility] [address] [place], [address] Cholesterol [Mass/Vol] 168 mg/dL Normal <=[address] [facility] Comment on above: Result Comment: Chol esterol level, Desirable <200 mg/dLBorderline high cholesterol 200-239 mg/dLHigh cholesterol >=240 mg/dLRecommendations of the NCEP Adult Treatment Panel for thefollowing risk-cutoff thresholds for the [place] Americanpulation. Performed By: #### L 501.2300, L100.0100, L500.4100, L500.4050 ####[facility] [address] [place], [address] Cholesterol in HDL [Mass/Vol] 27 mg/dL Low [facility] Comment on above: Result Comment: Margie onal Cholesterol Education Program (NCEP) guidelines:<40 mg/dL: Low HDL-cholesterol (major risk factor for CHD)>= 60 mg/dL: High HDL-cholesterol (negative risk factor forCHD)HDL-cholesterol is affected by a number of factors, e.g.smoking, exercise, hormones, sex and age. Performed By: #### L 501.2300, L100.0100, L500.4100, L500.4050 ####[facility] [address] [place], [address] Cholesterol in LDL [Mass/Vol] -17 mg/dL Normal [facility] Comment on above: Result Comment: Bord roynih=880-270 mg/dL Higher Lhdz=710 mg/dL or greater Performed By: #### L 501.2300, L100.0100, L500.4100, L500.4050 ####[facility] [address] [place], [address] Cholesterol in VLDL [Mass/Vol] 159 mg/dL High 5-40 [facility] Comment on above: Performed By: #### L 501.2300, L100.0100, L500.4100, L500.4050 ####[facility] [address] [place], [address] Triglyceride [Mass/Vol] 793 mg/dL High [facility] Comment on above: Result Comment: The drugs N-Acetylcysteine and Metamizole may falselydepress this assay.Normal range: <150 mg/dLBorderline High: 150-199 mg/dLHigh: 200-499 mg/dLVery High: >500 mg/dL Performed By: #### L 501.2300, L100.0100, L500.4100, L500.4050 ####[facility] [address] [place], [address] Phosphoruson 03-16-2025 Phosphate [Mass/Vol] 3.6 mg/dL Normal 2.7-4.5 [facility] Comment on above: Performed By: #### L 501.2300, L100.0100, L500.4100, L500.4050 ####[facility] [address] [place], [address] Vitamin B12on 03-16-2025 Cobalamin (Vitamin B12) [Mass/Vol] 709 pg/mL Normal 180-914 [facility] Comment on above: Performed By: #### L 503.0106 ####[facility] [address] [place], [address] Ammoniaon 03-15-2025 Ammonia (P) [Moles/Vol] 30.7 umol/L Normal 11-51 [facility] Comment on above: Performed By: #### L 503.5510 ####[facility] [address] [place], [address] Bedside Glucoseon 03-15-2025 FINGERSTICK GLU 204 mg/dL High 74-106 [facility] Comment on above: Result Comment: MARCELLA GEMENT OF PATIENT CARE PER NURSING PROTOCOL Performed By: #### L 501.080 ####[facility] [address] [place], [address] FINGERSTICK GLU 250 mg/dL High 74-106 [facility] Comment on above: Result Comment: MARCELLA GEMENT OF PATIENT CARE PER NURSING PROTOCOL Performed By: #### L 501.080 ####[facility] [address] [place], [address] Brain/Head without Contrasto n 03-15-2025 Brain/Head without Contrast Normal [facility] CBC W/Diff, Automatedon 07-09 05-2024 Absolute Lymph 2.75 X10 3/uL Normal 0.83-4.51 [facility] Comment on above: Performed By: #### L 501.2450, L100.0100, L500.4050 ####[facility] [address] [place], [address] Absolute Neut 5.4 X10 3/uL Normal 2.0-7.7 [facility] Comment on above: Performed By: #### L 501.2450, L100.0100, L500.4050 ####[facility] [address] [place], [address] Basophils/100 WBC (Bld) 0.6 % Normal 0-1 [facility] Comment on above: Performed By: #### L 501.2450, L100.0100, L500.4050 ####[facility] [address] [place], [address] Eosinophils/100 WBC (Bld) 2.8 % Normal 0-5 [facility] Comment on above: Performed By: #### L 501.2450, L100.0100, L500.4050 ####[facility] [address] [place], [address] Erythrocyte distribution width (RBC) [Ratio] 13.7 % Normal 11.6-14.6 [facility] Comment on above: Performed By: #### L 501.2450, L100.0100, L500.4050 ####[facility] [address] [place], [address] Hematocrit (Bld) [Volume fraction] 39.5 % Normal 37-47 [facility] Comment on above: Performed By: #### L 501.2450, L100.0100, L500.4050 ####[facility] [address] [place], [address] Hemoglobin (Bld) [Mass/Vol] 13.0 g/dL Normal 12.0-15.0 [facility] Comment on above: Performed By: #### L 501.2450, L100.0100, L500.4050 ####[facility] [address] [place], [address] IG% 0.600 Normal 0.0-0.9 [facility] Comment on above: Result Comment: IG% - Immature Granulocytes (promyelocytes, myelocytes andmetamyelocytes) > 1% indicates that a LEFT SHIFT is Present. Performed By: #### L 501.2450, L100.0100, L500.4050 ####[facility] [address] [place], [address] Lymphocytes/100 WBC (Bld) 30.4 % Normal 19-41 [facility] Comment on above: Performed By: #### L 501.2450, L100.0100, L500.4050 ####[facility] [address] [place], [address] MCH (RBC) [Entitic mass] 29.0 pg Normal 27.0-32.0 [facility] Comment on above: Performed By: #### L 501.2450, L100.0100, L500.4050 ####[facility] [address] [place], [address] MCHC (RBC) [Mass/Vol] 32.9 g/dL Normal 32-36 [facility] Comment on above: Performed By: #### L 501.2450, L100.0100, L500.4050 ####[facility] [address] [place], [address] MCV (RBC) [Entitic vol] 88.0 fL Normal 81-99 [facility] Comment on above: Performed By: #### L 501.2450, L100.0100, L500.4050 ####[facility] [address] [place], [address] Monocytes/100 WBC (Bld) 6.4 % Normal 0-10 [facility] Comment on above: Performed By: #### L 501.2450, L100.0100, L500.4050 ####[facility] [address] [place], [address] Neutrophils/100 WBC (Bld) 59.2 % Normal 47-70 [facility] Comment on above: Performed By: #### L 501.2450, L100.0100, L500.4050 ####[facility] [address] [place], [address] Nucleated RBC (Bld) [#/Vol] 0 10*3/uL Normal 0-5 [facility] Comment on above: Performed By: #### L 501.2450, L100.0100, L500.4050 ####[facility] [address] [place], [address] Platelet mean volume (Bld) [Entitic vol] 9.5 fL Normal 6.2-12.0 [facility] Comment on above: Performed By: #### L 501.2450, L100.0100, L500.4050 ####[facility] [address] [place], [address] Platelets (Bld) [#/Vol] 234 10*3/uL Normal 150-450 [facility] Comment on above: Performed By: #### L 501.2450, L100.0100, L500.4050 ####[facility] [address] [place], [address] RBC (Bld) [#/Vol] 4.49 10*6/uL Normal 4.2-5.4 [facility] Comment on above: Performed By: #### L 501.2450, L100.0100, L500.4050 ####[facility] [address] [place], [address] RDW SD 43.7 fl Normal 35.1-43.9 [facility] Comment on above: Performed By: #### L 501.2450, L100.0100, L500.4050 ####[facility] [address] [place], [address] WBC (Bld) [#/Vol] 9.1 10*3/uL Normal 4.4-11.0 [facility] Comment on above: Performed By: #### L 501.2450, L100.0100, L500.4050 ####[facility] [address] [place], [address] Comprehensive Metabolic [facility] 03-15-2025 Albumin [Mass/Vol] 3.5 g/dL Normal 3.4-4.8 [facility] Comment on above: Performed By: #### L 501.2450, L100.0100, L500.4050 ####[facility] [address] [place], [address] Albumin/Globulin [Mass ratio] 1.1 {ratio} Normal 0.9-2.4 [facility] Comment on above: Performed By: #### L 501.2450, L100.0100, L500.4050 ####[facility] [address] [place], [address] ALK PHOS 117 U/L High 35-104 [facility] Comment on above: Performed By: #### L 501.2450, L100.0100, L500.4050 ####[facility] [address] [place], [address] ALT [Catalytic activity/Vol] 41 U/L High <=34 [facility] Comment on above: Performed By: #### L 501.2450, L100.0100, L500.4050 ####[facility] [address] [place], [address] AST [Catalytic activity/Vol] 60 U/L High <=31 [facility] Comment on above: Result Comment: Hemo lysis present, Results??could be affected.?? Performed By: #### L 501.2450, L100.0100, L500.4050 ####[facility] [address] [place], [address] Bilirubin [Mass/Vol] 0.25 mg/dL Normal 0.00-1.30 [facility] Comment on above: Performed By: #### L 501.2450, L100.0100, L500.4050 ####[facility] [address] [place], [address] BUN/CRE 22.8 RATIO High 10-20 [facility] Comment on above: Performed By: #### L 501.2450, L100.0100, L500.4050 ####[facility] [address] [place], [address] Calcium [Mass/Vol] 8.6 mg/dL Normal 7.6-11.0 [facility] Comment on above: Performed By: #### L 501.2450, L100.0100, L500.4050 ####[facility] [address] [place], [address] Chloride [Moles/Vol] 101 mmol/L Normal 98-108 [facility] Comment on above: Performed By: #### L 501.2450, L100.0100, L500.4050 ####[facility] [address] [place], [address] CO2 [Moles/Vol] 23.9 mmol/L Normal 21.0-32.0 [facility] Comment on above: Performed By: #### L 501.2450, L100.0100, L500.4050 ####[facility] [address] [place], [address] Creatinine [Mass/Vol] 0.64 mg/dL Low 0.70-1.20 [facility] Comment on above: Performed By: #### L 501.2450, L100.0100, L500.4050 ####[facility] [address] [place], [address] ECRCL 87.16 ml/min Normal 50-250 [facility] Comment on above: Performed By: #### L 501.2450, L100.0100, L500.4050 ####[facility] [address] [place], [address] GAP 12 Normal 5-15 [facility] Comment on above: Performed By: #### L 501.2450, L100.0100, L500.4050 ####[facility] [address] [place], [address] GFR/1.73 sq M.predicted among non-blacks MDRD (S/P/Bld) [Vol rate/Area] 97 mL/min/{1.73_m2} Normal >60 [facility] Comment on above: Result Comment: mL/m in/1.73m2 CKD-EPI Creatinine Equation (2020) Performed By: #### L 501.2450, L100.0100, L500.4050 ####[facility] [address] [place], [address] Globulin (S) [Mass/Vol] 3.1 g/dL Normal 2.2-4.2 [facility] Comment on above: Performed By: #### L 501.2450, L100.0100, L500.4050 ####[facility] [address] [place], [address] Glucose [Mass/Vol] 239 mg/dL High 70-99 [facility] Comment on above: Performed By: #### L 501.2450, L100.0100, L500.4050 ####[facility] [address] [place], [address] Potassium [Moles/Vol] 3.9 mmol/L Normal 3.3-5.1 [facility] Comment on above: Result Comment: Hemo lysis present, Results??could be affected.?? Performed By: #### L 501.2450, L100.0100, L500.4050 ####[facility] [address] [place], [address] Sodium [Moles/Vol] 137 mmol/L Normal 133-145 [facility] Comment on above: Performed By: #### L 501.2450, L100.0100, L500.4050 ####[facility] [address] [place], [address] T PROT 6.6 g/dL Normal 5.9-8.4 [facility] Comment on above: Performed By: #### L 501.2450, L100.0100, L500.4050 ####[facility] [address] [place], [address] Urea nitrogen [Mass/Vol] 15 mg/dL Normal 4-19 [facility] Comment on above: Performed By: #### L 501.2450, L100.0100, L500.4050 ####[facility] [address] [place], [address] Emergency Department Summary on 03-15-2025 Emergency Department Summary Normal [facility] H AND P Exam - Hospitaliston 03-15-2025 H&P Exam - Hospitalist Normal [facility] Hemoglobin A1con 03-15-2025 HbA1c (Bld) [Mass fraction] 11.7 % High <=5.6 [facility] Comment on above: Result Comment: Norm al < 5.7 % Prediabetic 5.7 - 6.4 % Diabetic >or= 6.5 % Please note range changes. Performed By: #### L 501.9520, L506.0200, L501.9985, L501.5200 ####[facility] [address] [place], [address] Lipaseon 03-15-2025 Lipase [Catalytic activity/Vol] 33 U/L Normal 13-75 [facility] Comment on above: Result Comment: Sherri amrtinez note:LIPASE revised reference range effective 22.New Lipase methodology. Expected to produce lower valuesthan the previous assay method.NEW Reference Range: 13 - 75 U/L Performed By: #### L 501.2450, L100.0100, L500.4050 ####[facility] [address] [place], [address] Magnesiumon 03-15-2025 Magnesium [Mass/Vol] 1.8 mg/dL Normal 1.5-2.2 [facility] Comment on above: Performed By: #### L 501.9520, L506.0200, L501.9985, L501.5200 ####[facility] [address] [place], [address] Thyroid Stim Hormone (TSH)on 03-15-2025 TSH 1.540 uIU/mL Normal 0.300-4.200 [facility] Comment on above: Performed By: #### L 501.9520, L506.0200, L501.9985, L501.5200 ####[facility] [address] [place], [address] Urinalysis, Completeon 03-15 BACTERIA 2+ /hpf Normal None Seen [facility] Comment on above: Order Comment: COLLE CTOR TO SPECIFY Performed By: #### L 400.0001 ####[facility] [address] [place], [address] EPI,SQUAMOUS 5-10 SEEN Normal 5-10 [facility] Comment on above: Order Comment: COLLE CTOR TO SPECIFY Performed By: #### L 400.0001 ####[facility] [address] [place], [address] WBC 10-25 SEEN Normal 0-5 [facility] Comment on above: Order Comment: COLLE CTOR TO SPECIFY Performed By: #### L 400.0001 ####[facility] [address] [place], [address] Mucus Ql (Urine sed) 0 SEEN Normal [facility] Comment on above: Order Comment: COLLE CTOR TO SPECIFY Performed By: #### L 400.0001 ####[facility] [address] [place], [address] RBC 0 SEEN Normal 0-5 [facility] Comment on above: Order Comment: COLLE CTOR TO SPECIFY Performed By: #### L 400.0001 ####[facility] [address] [place], [address] Urine Drug Screen (VISTA)on 03-15-2025 AMPHETAMINES Normal <1000 ng/mL [facility] Comment on above: Result Comment: BOB ENT DISCHARGED. SPECIMEN NOT RECEIVED. Performed By: #### L 505.5000 ####[facility] [address] [place], [address] BARBITIURATES Normal < 200 ng/mL [facility] Comment on above: Result Comment: BOB ENT DISCHARGED. SPECIMEN NOT RECEIVED. Performed By: #### L 505.5000 ####[facility] [address] [place], [address] BENZODIAZIPINE Normal < 200 ng/mL [facility] Comment on above: Result Comment: BOB ENT DISCHARGED. SPECIMEN NOT RECEIVED. Performed By: #### L 505.5000 ####[facility] [address] [place], [address] BUP Ur Drug Scr Normal < 200 ng/mL [facility] Comment on above: Result Comment: BOB ENT DISCHARGED. SPECIMEN NOT RECEIVED. Performed By: #### L 505.5000 ####[facility] [address] [place], [address] COCAINE Normal < 300 ng/mL [facility] Comment on above: Result Comment: BOB ENT DISCHARGED. SPECIMEN NOT RECEIVED. Performed By: #### L 505.5000 ####[facility] [address] [place] [id number] Fentanyl Normal [facility] Comment on above: Result Comment: BOB ENT DISCHARGED. SPECIMEN NOT RECEIVED. Performed By: #### L 505.5000 ####[facility] [address] [facility] [address] METHADONE Normal < 300 ng/mL [facility] Comment on above: Result Comment: BOB ENT DISCHARGED. SPECIMEN NOT RECEIVED. Performed By: #### L 505.5000 ####[facility] [address] [place] [address] OPIATES Normal < 300 ng/mL [facility] Comment on above: Result Comment: BOB ENT DISCHARGED. SPECIMEN NOT RECEIVED. Performed By: #### L 505.5000 ####[facility] [address] [place] [id number] OXYCODONE Normal < 100 ng/mL [facility] Comment on above: Result Comment: BOB ENT DISCHARGED. SPECIMEN NOT RECEIVED. Performed By: #### L 505.5000 ####[facility] [address] [place] [id number] PCP Normal < 25 ng/mL [facility] Comment on above: Result Comment: BOB ENT DISCHARGED. SPECIMEN NOT RECEIVED. Performed By: #### L 505.5000 ####[facility] [address] [place] [id number] THC Normal < 50 ng/mL [facility] Comment on above: Result Comment: BOB ENT DISCHARGED. SPECIMEN NOT RECEIVED. Performed By: #### L 505.5000 ####[facility] [address] [place], [address] Venous Blood Gason 5 Blood Gas Type REJI Normal [facility] Comment on above: Performed By: #### L 9000.0810 ####[facility] [address] [place], [address] CO2 [Moles/Vol] 32 mmol/L Normal 23-33 [facility] Comment on above: Performed By: #### L 9000.0810 ####[facility] [address] [place], [address] HCO3 (Bld) [Moles/Vol] 30 mmol/L High 22-[address] [facility] Comment on above: Performed By: #### L 9000.0810 ####[facility] [address] [place], [address] O2 Delivery Dev Not entered [facility] Comment on above: Performed By: #### L 9000.0810 ####[facility] [address] [place], [address] SITE Not entered [facility] Comment on above: Performed By: #### L 9000.0810 ####[facility] [address] [place], [address] VBG BE 6 mmol/L High -1.0-3.5 [facility] Comment on above: Performed By: #### L 9000.0810 ####[facility] [address] [place], [address] VBG pCO2 48.2 mmHg Normal 41-51 [facility] Comment on above: Performed By: #### L 9000.0810 ####[facility] [address] [place], [address] VBG pH 7.41 Normal 7.32-7.42 [facility] Comment on above: Performed By: #### L 9000.0810 ####[facility] [address] [place], [place], [id number] VBG PO2 58 mmHg High 25-40 [facility] Comment on above: Performed By: #### L 9000.0810 ####[facility] [address] [place], [address] VBG SO2 89 High 50-70 [facility] Comment on above: Performed By: #### L 9000.0810 ####[facility] [address] [place], [place], [phone] MR/BMS.BPon 03-11-2025 MR/BMS.BP Normal [facility] Extremity Lower without Cont raon 02-09-2025 Extremity Lower without Contra Normal [facility] CBC W/Diff, Automatedon 06- Absolute Lymph 2.35 X10 3/uL Normal 0.83-4.51 [facility] Comment on above: Performed By: #### L 100.0100, L501.1400, L501.66337, L501.5200, L506.0400, L500.4050, L501.2450, L101.9900, L501.6710, L501.9520 ####[facility] [address] [place], [place], [phone] Absolute Neut 6.7 X10 3/uL Normal 2.0-7.7 [facility] Comment on above: Performed By: #### L 100.0100, L501.1400, L501.66954, L501.5200, L506.0400, L500.4050, L501.2450, L101.9900, L501.6710, L501.9520 ####[facility] [address] [place], [address] Basophils/100 WBC (Bld) 0.6 % Normal 0-1 [facility] Comment on above: Performed By: #### L 100.0100, L501.1400, L501.19789, L501.5200, L506.0400, L500.4050, L501.2450, L101.9900, L501.6710, L501.9520 ####[facility] [address] [place], [place], [phone]) Eosinophils/100 WBC (Bld) 1.0 % Normal 0-5 [facility] Comment on above: Performed By: #### L 100.0100, L501.1400, L501.80434, L501.5200, L506.0400, L500.4050, L501.2450, L101.9900, L501.6710, L501.9520 ####[facility] [address] [place], [place], [phone]) Erythrocyte distribution width (RBC) [Ratio] 13.2 % Normal 11.6-14.6 [facility] Comment on above: Performed By: #### L 100.0100, L501.1400, L501.83960, L501.5200, L506.0400, L500.4050, L501.2450, L101.9900, L501.6710, L501.9520 ####[facility] [address] [place], [place], [phone](705) Hematocrit (Bld) [Volume fraction] 43.4 % Normal 37-47 [facility] Comment on above: Performed By: #### L 100.0100, L501.1400, L501.94794, L501.5200, L506.0400, L500.4050, L501.2450, L101.9900, L501.6710, L501.9520 ####[facility] [address] [place], [place], [phone](720) Hemoglobin (Bld) [Mass/Vol] 14.5 g/dL Normal 12.0-15.0 [facility] Comment on above: Performed By: #### L 100.0100, L501.1400, L501.95792, L501.5200, L506.0400, L500.4050, L501.2450, L101.9900, L501.6710, L501.9520 ####[facility] [address] [place], [address] IG% 0.500 Normal 0.0-0.9 [facility] Comment on above: Result Comment: IG% - Immature Granulocytes (promyelocytes, myelocytes andmetamyelocytes) > 1% indicates that a LEFT SHIFT is Present. Performed By: #### L 100.0100, L501.1400, L501.34960, L501.5200, L506.0400, L500.4050, L501.2450, L101.9900, L501.6710, L501.9520 ####[facility] [address] [place], [address] Lymphocytes/100 WBC (Bld) 24.2 % Normal 19-41 [facility] Comment on above: Performed By: #### L 100.0100, L501.1400, L501.74140, L501.5200, L506.0400, L500.4050, L501.2450, L101.9900, L501.6710, L501.9520 ####[facility] [address] [place], [address] MCH (RBC) [Entitic mass] 29.4 pg Normal 27.0-32.0 [facility] Comment on above: Performed By: #### L 100.0100, L501.1400, L501.37721, L501.5200, L506.0400, L500.4050, L501.2450, L101.9900, L501.6710, L501.9520 ####[facility] [address] [place], [address] MCHC (RBC) [Mass/Vol] 33.4 g/dL Normal 32-36 [facility] Comment on above: Performed By: #### L 100.0100, L501.1400, L501.83268, L501.5200, L506.0400, L500.4050, L501.2450, L101.9900, L501.6710, L501.9520 ####[facility] [address] [place], [place], [phone]) MCV (RBC) [Entitic vol] 87.9 fL Normal 81-99 [facility] Comment on above: Performed By: #### L 100.0100, L501.1400, L501.57132, L501.5200, L506.0400, L500.4050, L501.2450, L101.9900, L501.6710, L501.9520 ####[facility] [address] [place], [phone] Monocytes/100 WBC (Bld) 5.1 % Normal 0-10 [facility] Comment on above: Performed By: #### L 100.0100, L501.1400, L501.24372, L501.5200, L506.0400, L500.4050, L501.2450, L101.9900, L501.6710, L501.9520 ####[facility] [address] [place], [address] Neutrophils/100 WBC (Bld) 68.6 % Normal 47-70 [facility] Comment on above: Performed By: #### L 100.0100, L501.1400, L501.39275, L501.5200, L506.0400, L500.4050, L501.2450, L101.9900, L501.6710, L501.9520 ####[facility] [address] [place], [phone] Nucleated RBC (Bld) [#/Vol] 0 10*3/uL Normal 0-5 [facility] Comment on above: Performed By: #### L 100.0100, L501.1400, L501.69972, L501.5200, L506.0400, L500.4050, L501.2450, L101.9900, L501.6710, L501.9520 ####[facility] [address] [place], [place], [phone]) Platelet mean volume (Bld) [Entitic vol] 9.6 fL Normal 6.2-12.0 [facility] Comment on above: Performed By: #### L 100.0100, L501.1400, L501.10214, L501.5200, L506.0400, L500.4050, L501.2450, L101.9900, L501.6710, L501.9520 ####[facility] [address] [place], [phone]([phone]) Platelets (Bld) [#/Vol] 251 10*3/uL Normal 150-450 [facility] Comment on above: Performed By: #### L 100.0100, L501.1400, L501.72894, L501.5200, L506.0400, L500.4050, L501.2450, L101.9900, L501.6710, L501.9520 ####[facility] [address] [place], [phone](928) RBC (Bld) [#/Vol] 4.94 10*6/uL Normal 4.2-5.4 [facility] Comment on above: Performed By: #### L 100.0100, L501.1400, L501.45954, L501.5200, L506.0400, L500.4050, L501.2450, L101.9900, L501.6710, L501.9520 ####[facility] [address] [place], [place], [phone] RDW SD 41.8 fl Normal 35.1-43.9 [facility] Comment on above: Performed By: #### L 100.0100, L501.1400, L501.79870, L501.5200, L506.0400, L500.4050, L501.2450, L101.9900, L501.6710, L501.9520 ####[facility] [address] [place], [place], [phone] WBC (Bld) [#/Vol] 9.7 10*3/uL Normal 4.4-11.0 [facility] Comment on above: Performed By: #### L 100.0100, L501.1400, L501.89939, L501.5200, L506.0400, L500.4050, L501.2450, L101.9900, L501.6710, L501.9520 ####[facility] [address] [place], [place], [phone] CRPon 02-04-2025 C-REACTIVE PROT 11.80 mg/L High 0.0-3.0 [facility] Comment on above: Performed By: #### L 100.0100, L501.1400, L501.66919, L501.5200, L506.0400, L500.4050, L501.2450, L101.9900, L501.6710, L501.9520 ####[facility] [address] [place], [place], [phone] Comprehensive Metabolic Prof ilon 02-04-2025 Albumin [Mass/Vol] 4.3 g/dL Normal 3.4-4.8 [facility] Comment on above: Performed By: #### L 100.0100, L501.1400, L501.13370, L501.5200, L506.0400, L500.4050, L501.2450, L101.9900, L501.6710, L501.9520 ####[facility] [address] [place], [address] Albumin/Globulin [Mass ratio] 1.4 {ratio} Normal 0.9-2.4 [facility] Comment on above: Performed By: #### L 100.0100, L501.1400, L501.09846, L501.5200, L506.0400, L500.4050, L501.2450, L101.9900, L501.6710, L501.9520 ####[facility] [address] [place], [address] ALK PHOS 112 U/L High 35-104 [facility] Comment on above: Performed By: #### L 100.0100, L501.1400, L501.49835, L501.5200, L506.0400, L500.4050, L501.2450, L101.9900, L501.6710, L501.9520 ####[facility] [address] [place], [address] ALT [Catalytic activity/Vol] 80 U/L High <=34 [facility] Comment on above: Performed By: #### L 100.0100, L501.1400, L501.82926, L501.5200, L506.0400, L500.4050, L501.2450, L101.9900, L501.6710, L501.9520 ####[facility] [address] [place], [address] AST [Catalytic activity/Vol] 60 U/L High <=31 [facility] Comment on above: Performed By: #### L 100.0100, L501.1400, L501.84352, L501.5200, L506.0400, L500.4050, L501.2450, L101.9900, L501.6710, L501.9520 ####[facility] [address] [place], [address] Bilirubin [Mass/Vol] 0.40 mg/dL Normal 0.00-1.30 [facility] Comment on above: Performed By: #### L 100.0100, L501.1400, L501.96551, L501.5200, L506.0400, L500.4050, L501.2450, L101.9900, L501.6710, L501.9520 ####[facility] [address] [place], [place], [phone]) BUN/CRE 13.8 RATIO Normal 10-20 [facility] Comment on above: Performed By: #### L 100.0100, L501.1400, L501.50016, L501.5200, L506.0400, L500.4050, L501.2450, L101.9900, L501.6710, L501.9520 ####[facility] [address] [place], [place], [phone](557) Calcium [Mass/Vol] 9.5 mg/dL Normal 7.6-11.0 [facility] Comment on above: Performed By: #### L 100.0100, L501.1400, L501.54591, L501.5200, L506.0400, L500.4050, L501.2450, L101.9900, L501.6710, L501.9520 ####[facility] [address] [place], [place], [phone](836) Chloride [Moles/Vol] 101 mmol/L Normal 98-108 [facility] Comment on above: Performed By: #### L 100.0100, L501.1400, L501.33070, L501.5200, L506.0400, L500.4050, L501.2450, L101.9900, L501.6710, L501.9520 ####[facility] [address] [place], [place], [phone]) CO2 [Moles/Vol] 24.5 mmol/L Normal 21.0-32.0 [facility] Comment on above: Performed By: #### L 100.0100, L501.1400, L501.74500, L501.5200, L506.0400, L500.4050, L501.2450, L101.9900, L501.6710, L501.9520 ####[facility] [address] [place], [place], [phone] Creatinine [Mass/Vol] 0.78 mg/dL Normal 0.70-1.20 [facility] Comment on above: Performed By: #### L 100.0100, L501.1400, L501.32862, L501.5200, L506.0400, L500.4050, L501.2450, L101.9900, L501.6710, L501.9520 ####[facility] [address] [place], [place], [phone] GAP 16 High 5-15 [facility] Comment on above: Performed By: #### L 100.0100, L501.1400, L501.87891, L501.5200, L506.0400, L500.4050, L501.2450, L101.9900, L501.6710, L501.9520 ####[facility] [address] [place], [place], [phone] GFR/1.73 sq M.predicted among non-blacks MDRD (S/P/Bld) [Vol rate/Area] 84 mL/min/{1.73_m2} Normal >60 [facility] Comment on above: Result Comment: mL/m in/1.73m2 CKD-EPI Creatinine Equation (2020) Performed By: #### L 100.0100, L501.1400, L501.01971, L501.5200, L506.0400, L500.4050, L501.2450, L101.9900, L501.6710, L501.9520 ####[facility] [address] [place], [address] Globulin (S) [Mass/Vol] 3.1 g/dL Normal 2.2-4.2 [facility] Comment on above: Performed By: #### L 100.0100, L501.1400, L501.60853, L501.5200, L506.0400, L500.4050, L501.2450, L101.9900, L501.6710, L501.9520 ####[facility] [address] [place], [address] Glucose [Mass/Vol] 247 mg/dL High 70-99 [facility] Comment on above: Performed By: #### L 100.0100, L501.1400, L501.03064, L501.5200, L506.0400, L500.4050, L501.2450, L101.9900, L501.6710, L501.9520 ####[facility] [address] [facility] [place], [address] Potassium [Moles/Vol] 4.6 mmol/L Normal 3.3-5.1 [facility] Comment on above: Performed By: #### L 100.0100, L501.1400, L501.41882, L501.5200, L506.0400, L500.4050, L501.2450, L101.9900, L501.6710, L501.9520 ####[facility] [address] [place], [address] Sodium [Moles/Vol] 141 mmol/L Normal 133-145 [facility] Comment on above: Performed By: #### L 100.0100, L501.1400, L501.97525, L501.5200, L506.0400, L500.4050, L501.2450, L101.9900, L501.6710, L501.9520 ####[facility] [address] [place], [address] T PROT 7.4 g/dL Normal 5.9-8.4 [facility] Comment on above: Performed By: #### L 100.0100, L501.1400, L501.07763, L501.5200, L506.0400, L500.4050, L501.2450, L101.9900, L501.6710, L501.9520 ####[facility] [address] [place], [address] Urea nitrogen [Mass/Vol] 11 mg/dL Normal 4-19 [facility] Comment on above: Performed By: #### L 100.0100, L501.1400, L501.15725, L501.5200, L506.0400, L500.4050, L501.2450, L101.9900, L501.6710, L501.9520 ####[facility] [address] [place], [address] Erythrocyte Sed Rateon 02-04 SED RATE 7 mm/hr Normal 0-30 [facility] Comment on above: Performed By: #### L 100.0100, L501.1400, L501.25558, L501.5200, L506.0400, L500.4050, L501.2450, L101.9900, L501.6710, L501.9520 ####[facility] [address] [place], [address] Free T3on 02-04-2025 Free T3 [Mass/Vol] 2.4 pg/mL Normal 2.18-3.98 [facility] Comment on above: Performed By: #### L 100.0100, L501.1400, L501.33560, L501.5200, L506.0400, L500.4050, L501.2450, L101.9900, L501.6710, L501.9520 ####[facility] [address] [place], [address] Lipaseon 02-04-2025 Lipase [Catalytic activity/Vol] 42 U/L Normal 13-75 [facility] Comment on above: Result Comment: Sherri martinez note:LIPASE revised reference range effective 22.New Lipase methodology. Expected to produce lower valuesthan the previous assay method.NEW Reference Range: 13 - 75 U/L Performed By: #### L 100.0100, L501.1400, L501.99102, L501.5200, L506.0400, L500.4050, L501.2450, L101.9900, L501.6710, L501.9520 ####[facility] [address] [place], [address] Magnesiumon 02-04-2025 Magnesium [Mass/Vol] 1.8 mg/dL Normal 1.5-2.2 [facility] Comment on above: Performed By: #### L 100.0100, L501.1400, L501.28038, L501.5200, L506.0400, L500.4050, L501.2450, L101.9900, L501.6710, L501.9520 ####[facility] [address] [place], [place], [phone] T4 Free Directon 02-04-2025 T4 FREE DIRECT 1.20 ng/dL Normal 0.76-1.46 [facility] Comment on above: Performed By: #### L 100.0100, L501.1400, L501.47703, L501.5200, L506.0400, L500.4050, L501.2450, L101.9900, L501.6710, L501.9520 ####[facility] [address] [place], [place], [phone] Thyroid Stim Hormone (TSH)on 02-04-2025 TSH 0.755 uIU/mL Normal 0.300-4.200 [facility] Comment on above: Performed By: #### L 100.0100, L501.1400, L501.51698, L501.5200, L506.0400, L500.4050, L501.2450, L101.9900, L501.6710, L501.9520 ####[facility] [address] [place], [address] Uric Acidon 02-04-2025 URIC 6.8 mg/dL High 2.6-6.0 [facility] Comment on above: Result Comment: The drugs N-Acetylcysteine and Metamizole may falselydepress this assay. Performed By: #### L 100.0100, L501.1400, L501.45754, L501.5200, L506.0400, L500.4050, L501.2450, L101.9900, L501.6710, L501.9520 ####[facility] [address] [place], [address] MR/BMS.BPon 01-07-2025 MR/BMS.BP Normal [facility] Basic Metabolic Profile (BMP )on 01-03-2025 BUN/CRE 18.4 RATIO Normal 10-20 [facility] Comment on above: Performed By: #### L 500.2500, L506.1001 ####[facility] [address] [place], [address] Calcium [Mass/Vol] 8.7 mg/dL Normal 7.6-11.0 [facility] Comment on above: Performed By: #### L 500.2500, L506.1001 ####[facility] [address] [place], [address] Chloride [Moles/Vol] 100 mmol/L Normal 98-108 [facility] Comment on above: Performed By: #### L 500.2500, L506.1001 ####[facility] [address] [place], [address] CO2 [Moles/Vol] 25.8 mmol/L Normal 21.0-32.0 [facility] Comment on above: Performed By: #### L 500.2500, L506.1001 ####[facility] [address] [place], [address] Creatinine [Mass/Vol] 0.71 mg/dL Normal 0.70-1.20 [facility] Comment on above: Performed By: #### L 500.2500, L506.1001 ####[facility] [address] [place], [address] GAP 12 Normal 5-15 [facility] Comment on above: Performed By: #### L 500.2500, L506.1001 ####[facility] [address] [place], [address] GFR/1.73 sq M.predicted among non-blacks MDRD (S/P/Bld) [Vol rate/Area] 94 mL/min/{1.73_m2} Normal >60 [facility] Comment on above: Result Comment: mL/m in/1.73m2 CKD-EPI Creatinine Equation (2020) Performed By: #### L 500.2500, L506.1001 ####[facility] [address] [place], [address] Glucose [Mass/Vol] 293 mg/dL High 70-99 [facility] Comment on above: Performed By: #### L 500.2500, L506.1001 ####[facility] [address] [place], [address] Potassium [Moles/Vol] 4.8 mmol/L Normal 3.3-5.1 [facility] Comment on above: Performed By: #### L 500.2500, L506.1001 ####[facility] [address] [place], [address] Sodium [Moles/Vol] 138 mmol/L Normal 133-145 [facility] Comment on above: Performed By: #### L 500.2500, L506.1001 ####[facility] [address] [place], [address] Urea nitrogen [Mass/Vol] 13 mg/dL Normal 4-19 [facility] Comment on above: Performed By: #### L 500.2500, L506.1001 ####[facility] [address] [place], [address] Vitamin D,25 Hydroxyon 01-03 Vitamin D 25-OH 32.3 ng/mL Normal 30-100 [facility] Comment on above: Result Comment: Ashley min D StatusDeficiency: <20 ng/mL (50nmol/L)Insufficiency: 20-30 ng/mL (50-75 nmol/L)Sufficiency: 30-100 ng/mL (75-250 nmol/L)Toxicity: >100 ng/mL (>250 nmol/L) Performed By: #### L 500.2500, L506.1001 ####[facility] [address] [place], [address] Echo Complete W/ Contraston 11-29-2024 Echo Complete W/ Contrast Normal [facility] Brain/Head without Contrasto n 11-20-2024 Brain/Head without Contrast Normal [facility] Emergency Department Summary on 11-20-2024 Emergency Department Summary Normal [facility] Lumbar Spine 2 or 3 Viewson 11-20-2024 Lumbar Spine 2 or 3 Views Normal [facility] Spine Cervical without Contr ason 11-20-2024 Spine Cervical without Contras Normal [facility] Thoracic Spine 3 Viewson Thoracic Spine 3 Views Normal [facility] Endocrinology Visit Reporton 11-19-2024 Endocrinology Visit Report Normal [facility] Emergency Department Summary on 10-15-2024 Emergency Department Summary Normal [facility] Emergency Department Summary on 10-12-2024 Emergency Department Summary Normal [facility] Endocrinology Visit Reporton 10-08-2024 Endocrinology Visit Report Normal [facility] MR/BMS.BPon 09-03-2024 MR/BMS.BP Normal [facility] Bedside Glucoseon 07-28-2024 FINGERSTICK GLU 200 mg/dL High 74-106 [facility] Comment on above: Result Comment: MARCELLA GEMENT OF PATIENT CARE PER NURSING PROTOCOL Performed By: #### L 501.080 ####[facility] [address] [place], [address] FINGERSTICK GLU 202 mg/dL High 74-106 [facility] Comment on above: Result Comment: MARCELLA GEMENT OF PATIENT CARE PER NURSING PROTOCOL Performed By: #### L 501.080 ####[facility] [address] [place], [address] FINGERSTICK GLU 233 mg/dL High 74-106 [facility] Comment on above: Result Comment: MARCELLA GEMENT OF PATIENT CARE PER NURSING PROTOCOL Performed By: #### L 501.080 ####[facility] [address] [place], [address] Spine Lumbar without Contras ton 07-28-2024 Spine Lumbar without Contrast Normal [facility] 12 Lead EKGon 07-27-2024 12 Lead EKG Normal [facility] Basic Metabolic Profile (BMP )on 07-27-2024 BUN/CRE 14.0 RATIO Normal 10-20 [facility] Comment on above: Performed By: #### L 100.0100, L500.2500 ####[facility] [address] [place], [address] CA,Total 8.9 mg/dL Normal 8.5-10.1 [facility] Comment on above: Performed By: #### L 100.0100, L500.2500 ####[facility] [address] [place], [address] Chloride [Moles/Vol] 99 mmol/L Normal 98-107 [facility] Comment on above: Performed By: #### L 100.0100, L500.2500 ####[facility] [address] [place], [address] CO2 [Moles/Vol] 30.0 mmol/L Normal 21.0-32.0 [facility] Comment on above: Performed By: #### L 100.0100, L500.2500 ####[facility] [address] [place], [address] Creatinine [Mass/Vol] 1.00 mg/dL Normal 0.55-1.02 [facility] Comment on above: Result Comment: The validity of the calculated GFR GFRAA in patients over70 years has not been determined. Clinical correlation isessential. Performed By: #### L 100.0100, L500.2500 ####[facility] [address] [place], [address] ECRCL 69.70 ml/min Normal [facility] Comment on above: Performed By: #### L 100.0100, L500.2500 ####[facility] [address] [place], [address] EST GFR - AA 71 mL/min Normal >60 [facility] Comment on above: Result Comment: Afri can Finnish GFR Calc Performed By: #### L 100.0100, L500.2500 ####[facility] [address] [place], [address] GAP 7 Normal 5-15 [facility] Comment on above: Performed By: #### L 100.0100, L500.2500 ####[facility] [address] [place], [address] GFR/1.73 sq M.predicted among non-blacks MDRD (S/P/Bld) [Vol rate/Area] 59 mL/min/{1.73_m2} Low >60 [facility] Comment on above: Result Comment: Non- GFR Calc Performed By: #### L 100.0100, L500.2500 ####[facility] [address] [place], [address] Glucose [Mass/Vol] 421 mg/dL High 74-106 [facility] Comment on above: Result Comment: Gluc ose result greater than or equal to 200 mg/dLsuggests DIABETES MELLITUS per A.D.A. criteria. Performed By: #### L 100.0100, L500.2500 ####[facility] [address] [place], [address] Potassium [Moles/Vol] 4.6 mmol/L Normal 3.5-5.1 [facility] Comment on above: Result Comment: Slig ht Hemolysis, Result may be falsely increased. Performed By: #### L 100.0100, L500.2500 ####[facility] [address] [place], [address] Sodium [Moles/Vol] 135 mmol/L Low 136-145 [facility] Comment on above: Performed By: #### L 100.0100, L500.2500 ####[facility] [address] [place], [address] Urea nitrogen [Mass/Vol] 14 mg/dL Normal 7-18 [facility] Comment on above: Performed By: #### L 100.0100, L500.2500 ####[facility] [address] [place], [address] Bedside Glucoseon 07-27-2024 FINGERSTICK GLU 290 mg/dL High 74-106 [facility] Comment on above: Result Comment: MARCELLA GEMENT OF PATIENT CARE PER NURSING PROTOCOL Performed By: #### L 501.080 ####[facility] [address] [place], [address] FINGERSTICK GLU 360 mg/dL High [address] [place] [id number] Comment on above: Result Comment: MARCELLA GEMENT OF PATIENT CARE PER NURSING PROTOCOL Performed By: #### L 501.080 ####[facility] [address] [place], [address] CBC W/Diff, Automatedon 11-2 Absolute Lymph 2.09 X10 3/uL Normal 0.83-4.51 [facility] Comment on above: Performed By: #### L 100.0100, L500.2500 ####[facility] [address] [place], [address] Absolute Neut 4.9 X10 3/uL Normal 2.0-7.7 [facility] Comment on above: Performed By: #### L 100.0100, L500.2500 ####[facility] [address] [place], [address] Basophils/100 WBC (Bld) 0.4 % Normal 0-1 [facility] Comment on above: Performed By: #### L 100.0100, L500.2500 ####[facility] [address] [place], [address] Eosinophils/100 WBC (Bld) 1.8 % Normal 0-5 [facility] Comment on above: Performed By: #### L 100.0100, L500.2500 ####[facility] [address] [place], [address] Erythrocyte distribution width (RBC) [Ratio] 13.5 % Normal 11.6-14.6 [facility] Comment on above: Performed By: #### L 100.0100, L500.2500 ####[facility] [address] [place], [address] Hematocrit (Bld) [Volume fraction] 44.6 % Normal 37-47 [facility] Comment on above: Performed By: #### L 100.0100, L500.2500 ####[facility] [address] [place], [address] Hemoglobin (Bld) [Mass/Vol] 14.2 g/dL Normal 12.0-15.0 [facility] Comment on above: Performed By: #### L 100.0100, L500.2500 ####[facility] [address] [place], [address] IG% 0.500 Normal 0.0-0.9 [facility] Comment on above: Result Comment: IG% - Immature Granulocytes (promyelocytes, myelocytes andmetamyelocytes) > 1% indicates that a LEFT SHIFT is Present. Performed By: #### L 100.0100, L500.2500 ####[facility] [address] [place], [address] Lymphocytes/100 WBC (Bld) 27.5 % Normal 19-41 [facility] Comment on above: Performed By: #### L 100.0100, L500.2500 ####[facility] [address] [place], [address] MCH (RBC) [Entitic mass] 28.9 pg Normal 27.0-32.0 [facility] Comment on above: Performed By: #### L 100.0100, L500.2500 ####[facility] [address] [place], [address] MCHC (RBC) [Mass/Vol] 31.8 g/dL Low 32-36 [facility] Comment on above: Performed By: #### L 100.0100, L500.2500 ####[facility] [address] [place], [address] MCV (RBC) [Entitic vol] 90.7 fL Normal 81-99 [facility] Comment on above: Performed By: #### L 100.0100, L500.2500 ####[facility] [address] [place], [address] Monocytes/100 WBC (Bld) 5.5 % Normal 0-10 [facility] Comment on above: Performed By: #### L 100.0100, L500.2500 ####[facility] [address] [place], [address] Neutrophils/100 WBC (Bld) 64.3 % Normal 47-70 [facility] Comment on above: Performed By: #### L 100.0100, L500.2500 ####[facility] [address] [place], [address] Nucleated RBC (Bld) [#/Vol] 0 10*3/uL Normal 0-5 [facility] Comment on above: Performed By: #### L 100.0100, L500.2500 ####[facility] [address] [place], [address] Platelet mean volume (Bld) [Entitic vol] 9.3 fL Normal 6.2-12.0 [facility] Comment on above: Performed By: #### L 100.0100, L500.2500 ####[facility] [address] [place], [address] Platelets (Bld) [#/Vol] 234 10*3/uL Normal 150-450 [facility] Comment on above: Performed By: #### L 100.0100, L500.2500 ####[facility] [address] [place], [address] RBC (Bld) [#/Vol] 4.92 10*6/uL Normal 4.2-5.4 [facility] Comment on above: Performed By: #### L 100.0100, L500.2500 ####[facility] [address] [place], [address] RDW SD 44.1 fl High 35.1-43.9 [facility] Comment on above: Performed By: #### L 100.0100, L500.2500 ####[facility] [address] [place], [address] WBC (Bld) [#/Vol] 7.6 10*3/uL Normal 4.4-11.0 [facility] Comment on above: Performed By: #### L 100.0100, L500.2500 ####[facility] [address] [place], [address] CTA Chest W/WO Contraston CTA Chest W/WO Contrast Normal [facility] Chest PA and Lateralon 07-27 Chest PA and Lateral Normal [facility] Emergency Department Summary on 07-27-2024 Emergency Department Summary Normal [facility] H AND P Exam - Hospitaliston 07-27-2024 H&P Exam - Hospitalist Normal [facility] L501.4020on 07-27-2024 TROPONIN-I HS 5 pg/mL Normal 3.0-54.0 [facility] Comment on above: Order Comment: 'TROP ' Serial specimen #1, #2 or #3: 1 Result Comment: Sherri martinez Note: New Test Units and Gender Specific Reference Ranges. For more information see Policy Stat Procedure [place] High Sensitivity Troponin (TNIH) and attachments. Performed By: #### L 501.4020 ####[facility] [address] [place], [address] Miscellaneous Lab Procedureo n 07-19-2024 MISC LAB TEST Normal [facility] Comment on above: Order Comment: [...] UR Oxymorphone Negative 300 TESTING PERFORMED AT [facility]. ORIGINAL REPORT ON FILE IN LAB CONTAINS ADDITIONAL TEST SITE INFORMATION. Performed By: #### L 400.2010, L801.1541, L505.5000 ####[facility] [address] [place], [address] Urinalysis, Routine (Dipstic k)on 07-13-2024 BILIRUBIN URINE Negative Normal Negative [facility] Comment on above: Order Comment: CLEAN CATCH Performed By: #### L 400.2010, L801.1541, L505.5000 ####[facility] [address] [place], [address] Clarity (U) Clear Normal Clear [facility] Comment on above: Order Comment: CLEAN CATCH Performed By: #### L 400.2010, L801.1541, L505.5000 ####[facility] [address] [place], [address] Color (U) Yellow Normal Yellow [facility] Comment on above: Order Comment: CLEAN CATCH Performed By: #### L 400.2010, L801.1541, L505.5000 ####[facility] [address] [place], [address] GLUCOSE, UR Normal Normal Normal [facility] Comment on above: Order Comment: CLEAN CATCH Performed By: #### L 400.2010, L801.1541, L505.5000 ####[facility] [address] [place], [address] KETONE UR Negative Normal Negative [facility] Comment on above: Order Comment: CLEAN CATCH Performed By: #### L 400.2010, L801.1541, L505.5000 ####[facility] [address] [place], [address] LEUK ESTERASE 25 /ul Abnormal Negative [facility] Comment on above: Order Comment: CLEAN CATCH Performed By: #### L 400.2010, L801.1541, L505.5000 ####[facility] [address] [place], [address] Nitrite Ql (U) Negative Normal Negative [facility] Comment on above: Order Comment: CLEAN CATCH Performed By: #### L 400.2010, L801.1541, L505.5000 ####[facility] [address] [place], [address] OCCULT BLOOD-UR Negative Normal Negative [facility] Comment on above: Order Comment: CLEAN CATCH Performed By: #### L 400.2010, L801.1541, L505.5000 ####[facility] [address] [place], [address] pH UR 6.0 Normal 5.0 - 8.0 [facility] Comment on above: Order Comment: CLEAN CATCH Performed By: #### L 400.2010, L801.1541, L505.5000 ####[facility] [address] [place], [address] PROT DIPSTX Negative Normal Negative [facility] Comment on above: Order Comment: CLEAN CATCH Performed By: #### L 400.2010, L801.1541, L505.5000 ####[facility] [address] [place], [address] SP.GR. DIPSTX 1.020 Normal 1.002-1.030 [facility] Comment on above: Order Comment: CLEAN CATCH Performed By: #### L 400.2010, L801.1541, L505.5000 ####[facility] [address] [place], [address] UROBILI Normal Normal Normal [facility] Comment on above: Order Comment: CLEAN CATCH Performed By: #### L 400.2010, L801.1541, L505.5000 ####[facility] [address] [place], [address] Urine Drug Screen (VISTA)on 07-13-2024 AMPHETAMINES Negative Normal <1000 ng/mL [facility] Comment on above: Order Comment: MEDTO X Performed By: #### L 400.2010, L801.1541, L505.5000 ####[facility] [address] [place], [address] BARBITIURATES Negative Normal < 200 ng/mL [facility] Comment on above: Order Comment: MEDTO X Performed By: #### L 400.2010, L801.1541, L505.5000 ####[facility] [address] [place], [address] BENZODIAZIPINE Negative Normal < 200 ng/mL [facility] Comment on above: Order Comment: MEDTO X Performed By: #### L 400.2010, L801.1541, L505.5000 ####[facility] [address] [place], [address] COCAINE Negative Normal < 300 ng/mL [facility] Comment on above: Order Comment: MEDTO X Performed By: #### L 400.2010, L801.1541, L505.5000 ####[facility] [address] [place], [address] ECSTACY Negative Normal < 500 ng/mL [facility] Comment on above: Order Comment: MEDTO X Performed By: #### L 400.2010, L801.1541, L505.5000 ####[facility] [address] [place], [address] METHADONE Negative Normal < 300 ng/mL [facility] Comment on above: Order Comment: MEDTO X Performed By: #### L 400.2010, L801.1541, L505.5000 ####[facility] [address] [place], [address] OPIATES Positive Abnormal < 300 ng/mL [facility] Comment on above: Order Comment: MEDTO X Performed By: #### L 400.2010, L801.1541, L505.5000 ####[facility] [address] [place], [address] PCP Negative Normal < 25 ng/mL [facility] Comment on above: Order Comment: MEDTO X Performed By: #### L 400.2010, L801.1541, L505.5000 ####[facility] [address] [place], [address] THC Negative Normal < 50 ng/mL [facility] Comment on above: Order Comment: MEDTO X Performed By: #### L 400.2010, L801.1541, L505.5000 ####[facility] [address] [place], [address] VISTA UDS PH 5 Normal [facility] Comment on above: Order Comment: MEDTO X Performed By: #### L 400.2010, L801.1541, L505.5000 ####[facility] [address] [place], [address] Endocrinology Visit Reporton 06-06-2024 Endocrinology Visit Report Normal [facility] CBC W/Diff, Automatedon Absolute Lymph 1.84 X10 3/uL Normal 0.83-4.51 [facility] Comment on above: Performed By: #### L 503.0105, L503.6150, L100.0100, L500.4050, L503.6550, L501.9520, L506.1000, L506.0400 ####[facility] [address] [place], [address] Absolute Neut 4.0 X10 3/uL Normal 2.0-7.7 [facility] Comment on above: Performed By: #### L 503.0105, L503.6150, L100.0100, L500.4050, L503.6550, L501.9520, L506.1000, L506.0400 ####[facility] [address] [place], [address] Basophils/100 WBC (Bld) 0.6 % Normal 0-1 [facility] Comment on above: Performed By: #### L 503.0105, L503.6150, L100.0100, L500.4050, L503.6550, L501.9520, L506.1000, L506.0400 ####[facility] [address] [place], [address] Eosinophils/100 WBC (Bld) 2.7 % Normal 0-5 [facility] Comment on above: Performed By: #### L 503.0105, L503.6150, L100.0100, L500.4050, L503.6550, L501.9520, L506.1000, L506.0400 ####[facility] [address] [place], [address] Erythrocyte distribution width (RBC) [Ratio] 13.7 % Normal 11.6-14.6 [facility] Comment on above: Performed By: #### L 503.0105, L503.6150, L100.0100, L500.4050, L503.6550, L501.9520, L506.1000, L506.0400 ####[facility] [address] [place], [address] Hematocrit (Bld) [Volume fraction] 42.9 % Normal 37-47 [facility] Comment on above: Performed By: #### L 503.0105, L503.6150, L100.0100, L500.4050, L503.6550, L501.9520, L506.1000, L506.0400 ####[facility] [address] [place], [address] Hemoglobin (Bld) [Mass/Vol] 13.4 g/dL Normal 12.0-15.0 [facility] Comment on above: Performed By: #### L 503.0105, L503.6150, L100.0100, L500.4050, L503.6550, L501.9520, L506.1000, L506.0400 ####[facility] [address] [place], [address] IG% 0.500 Normal 0.0-0.9 [facility] Comment on above: Result Comment: IG% - Immature Granulocytes (promyelocytes, myelocytes andmetamyelocytes) > 1% indicates that a LEFT SHIFT is Present. Performed By: #### L 503.0105, L503.6150, L100.0100, L500.4050, L503.6550, L501.9520, L506.1000, L506.0400 ####[facility] [address] [place], [address] Lymphocytes/100 WBC (Bld) 27.8 % Normal 19-41 [facility] Comment on above: Performed By: #### L 503.0105, L503.6150, L100.0100, L500.4050, L503.6550, L501.9520, L506.1000, L506.0400 ####[facility] [address] [place], [address] MCH (RBC) [Entitic mass] 28.7 pg Normal 27.0-32.0 [facility] Comment on above: Performed By: #### L 503.0105, L503.6150, L100.0100, L500.4050, L503.6550, L501.9520, L506.1000, L506.0400 ####[facility] [address] [place], [address] MCHC (RBC) [Mass/Vol] 31.2 g/dL Low 32-36 [facility] Comment on above: Performed By: #### L 503.0105, L503.6150, L100.0100, L500.4050, L503.6550, L501.9520, L506.1000, L506.0400 ####[facility] [address] [place], [address] MCV (RBC) [Entitic vol] 91.9 fL Normal 81-99 [facility] Comment on above: Performed By: #### L 503.0105, L503.6150, L100.0100, L500.4050, L503.6550, L501.9520, L506.1000, L506.0400 ####[facility] [address] [place], [address] Monocytes/100 WBC (Bld) 7.7 % Normal 0-10 [facility] Comment on above: Performed By: #### L 503.0105, L503.6150, L100.0100, L500.4050, L503.6550, L501.9520, L506.1000, L506.0400 ####[facility] [address] [place], [address] Neutrophils/100 WBC (Bld) 60.7 % Normal 47-70 [facility] Comment on above: Performed By: #### L 503.0105, L503.6150, L100.0100, L500.4050, L503.6550, L501.9520, L506.1000, L506.0400 ####[facility] [address] [place], [address] Nucleated RBC (Bld) [#/Vol] 0 10*3/uL Normal 0-5 [facility] Comment on above: Performed By: #### L 503.0105, L503.6150, L100.0100, L500.4050, L503.6550, L501.9520, L506.1000, L506.0400 ####[facility] [address] [place], [address] Platelet mean volume (Bld) [Entitic vol] 9.6 fL Normal 6.2-12.0 [facility] Comment on above: Performed By: #### L 503.0105, L503.6150, L100.0100, L500.4050, L503.6550, L501.9520, L506.1000, L506.0400 ####[facility] [address] [place], [address] Platelets (Bld) [#/Vol] 228 10*3/uL Normal 150-450 [facility] Comment on above: Performed By: #### L 503.0105, L503.6150, L100.0100, L500.4050, L503.6550, L501.9520, L506.1000, L506.0400 ####[facility] [address] [place], [address] RBC (Bld) [#/Vol] 4.67 10*6/uL Normal 4.2-5.4 [facility] Comment on above: Performed By: #### L 503.0105, L503.6150, L100.0100, L500.4050, L503.6550, L501.9520, L506.1000, L506.0400 ####[facility] [address] [place], [address] RDW SD 46.1 fl High 35.1-43.9 [facility] Comment on above: Performed By: #### L 503.0105, L503.6150, L100.0100, L500.4050, L503.6550, L501.9520, L506.1000, L506.0400 ####[facility] [address] [place], [address] WBC (Bld) [#/Vol] 6.6 10*3/uL Normal 4.4-11.0 [facility] Comment on above: Performed By: #### L 503.0105, L503.6150, L100.0100, L500.4050, L503.6550, L501.9520, L506.1000, L506.0400 ####[facility] [address] [place], [address] Comprehensive Metabolic Prof ilon 06-01-2024 Albumin [Mass/Vol] 3.3 g/dL Normal 3.2-5.0 [facility] Comment on above: Performed By: #### L 503.0105, L503.6150, L100.0100, L500.4050, L503.6550, L501.9520, L506.1000, L506.0400 ####[facility] [address] [place], [address] Albumin/Globulin [Mass ratio] 0.8 {ratio} Low 0.9-2.4 [facility] Comment on above: Performed By: #### L 503.0105, L503.6150, L100.0100, L500.4050, L503.6550, L501.9520, L506.1000, L506.0400 ####[facility] [address] [place], [address] ALK P 102 U/L Normal 45-117 [facility] Comment on above: Performed By: #### L 503.0105, L503.6150, L100.0100, L500.4050, L503.6550, L501.9520, L506.1000, L506.0400 ####[facility] [address] [place], [address] ALT [Catalytic activity/Vol] 66 U/L High 13-56 [facility] Comment on above: Performed By: #### L 503.0105, L503.6150, L100.0100, L500.4050, L503.6550, L501.9520, L506.1000, L506.0400 ####[facility] [address] [place], [address] AST [Catalytic activity/Vol] 63 U/L High 15-37 [facility] Comment on above: Performed By: #### L 503.0105, L503.6150, L100.0100, L500.4050, L503.6550, L501.9520, L506.1000, L506.0400 ####[facility] [address] [place], [address] Bilirubin [Mass/Vol] 0.30 mg/dL Normal 0.20-1.00 [facility] Comment on above: Result Comment: For patients on eltrombopag therapy, use of Dimension [place] TBIL is not recommended. Performed By: #### L 503.0105, L503.6150, L100.0100, L500.4050, L503.6550, L501.9520, L506.1000, L506.0400 ####[facility] [address] [place], [address] BUN/CRE 18.1 RATIO Normal 10-20 [facility] Comment on above: Performed By: #### L 503.0105, L503.6150, L100.0100, L500.4050, L503.6550, L501.9520, L506.1000, L506.0400 ####[facility] [address] [place], [address] CA,Total 9.4 mg/dL Normal 8.5-10.1 [facility] Comment on above: Performed By: #### L 503.0105, L503.6150, L100.0100, L500.4050, L503.6550, L501.9520, L506.1000, L506.0400 ####[facility] [address] [place], [address] Chloride [Moles/Vol] 102 mmol/L Normal 98-107 [facility] Comment on above: Performed By: #### L 503.0105, L503.6150, L100.0100, L500.4050, L503.6550, L501.9520, L506.1000, L506.0400 ####[facility] [address] [place], [address] CO2 [Moles/Vol] 29.0 mmol/L Normal 21.0-32.0 [facility] Comment on above: Performed By: #### L 503.0105, L503.6150, L100.0100, L500.4050, L503.6550, L501.9520, L506.1000, L506.0400 ####[facility] [address] [place], [address] Creatinine [Mass/Vol] 0.88 mg/dL Normal 0.55-1.02 [facility] Comment on above: Result Comment: The validity of the calculated GFR GFRAA in patients over70 years has not been determined. Clinical correlation isessential. Performed By: #### L 503.0105, L503.6150, L100.0100, L500.4050, L503.6550, L501.9520, L506.1000, L506.0400 ####[facility] [address] [place], [address] EST GFR - AA 82 mL/min Normal >60 [facility] Comment on above: Result Comment: Afri can Finnish GFR Calc Performed By: #### L 503.0105, L503.6150, L100.0100, L500.4050, L503.6550, L501.9520, L506.1000, L506.0400 ####[facility] [address] [place] [place], [address] GAP 7 Normal 5-15 [facility] Comment on above: Performed By: #### L 503.0105, L503.6150, L100.0100, L500.4050, L503.6550, L501.9520, L506.1000, L506.0400 ####[facility] [address] [place], [address] GFR/1.73 sq M.predicted among non-blacks MDRD (S/P/Bld) [Vol rate/Area] 68 mL/min/{1.73_m2} Normal >60 [facility] Comment on above: Result Comment: Non- GFR Calc Performed By: #### L 503.0105, L503.6150, L100.0100, L500.4050, L503.6550, L501.9520, L506.1000, L506.0400 ####[facility] [address] [place], [address] Globulin (S) [Mass/Vol] 4.0 g/dL Normal 2.2-4.2 [facility] Comment on above: Performed By: #### L 503.0105, L503.6150, L100.0100, L500.4050, L503.6550, L501.9520, L506.1000, L506.0400 ####[facility] [address] [place], [address] Glucose [Mass/Vol] 195 mg/dL High 74-106 [facility] Comment on above: Result Comment: Fast ing Glucose result greater than or equal to 126 mg/dLsuggests DIABETES MELLITUS per A.D.A. criteria. Performed By: #### L 503.0105, L503.6150, L100.0100, L500.4050, L503.6550, L501.9520, L506.1000, L506.0400 ####[facility] [address] [place], [address] Potassium [Moles/Vol] 3.8 mmol/L Normal 3.5-5.1 [facility] Comment on above: Performed By: #### L 503.0105, L503.6150, L100.0100, L500.4050, L503.6550, L501.9520, L506.1000, L506.0400 ####[facility] [address] [place], [address] Sodium [Moles/Vol] 138 mmol/L Normal 136-145 [facility] Comment on above: Performed By: #### L 503.0105, L503.6150, L100.0100, L500.4050, L503.6550, L501.9520, L506.1000, L506.0400 ####[facility] [address] [place], [address] T PROT 7.3 g/dL Normal 6.4-8.2 [facility] Comment on above: Performed By: #### L 503.0105, L503.6150, L100.0100, L500.4050, L503.6550, L501.9520, L506.1000, L506.0400 ####[facility] [address] [place], [address] Urea nitrogen [Mass/Vol] 16 mg/dL Normal 7-18 [facility] Comment on above: Performed By: #### L 503.0105, L503.6150, L100.0100, L500.4050, L503.6550, L501.9520, L506.1000, L506.0400 ####[facility] [address] [place], [address] Ferritinon 06-01-2024 Ferritin [Mass/Vol] 31 ng/mL Normal 8-252 [facility] Comment on above: Performed By: #### L 503.0105, L503.6150, L100.0100, L500.4050, L503.6550, L501.9520, L506.1000, L506.0400 ####[facility] [address] [place], [place], [phone] Ironon 06-01-2024 Iron [Mass/Vol] 78 ug/dL Normal 50-170 [facility] Comment on above: Performed By: #### L 503.0105, L503.6150, L100.0100, L500.4050, L503.6550, L501.9520, L506.1000, L506.0400 ####[facility] [address] [place], [place], [id number] T4 Free Directon 06-01-2024 T4 FREE DIRECT 1.07 ng/dL Normal 0.76-1.46 [facility] Comment on above: Performed By: #### L 503.0105, L503.6150, L100.0100, L500.4050, L503.6550, L501.9520, L506.1000, L506.0400 ####[facility] [address] [place], [place], [id number] Thyroid Stim Hormone (TSH)on 06-01-2024 TSH 2.790 uIU/mL Normal 0.358-3.740 [facility] Comment on above: Performed By: #### L 503.0105, L503.6150, L100.0100, L500.4050, L503.6550, L501.9520, L506.1000, L506.0400 ####[facility] [address] [place], [place], [id number] Vitamin B12on 06-01-2024 Cobalamin (Vitamin B12) [Mass/Vol] 613 pg/mL Normal 211-911 [facility] Comment on above: Performed By: #### L 503.0105, L503.6150, L100.0100, L500.4050, L503.6550, L501.9520, L506.1000, L506.0400 ####[facility] [address] [place], [address] Vitamin D,25 Hydroxyon 06-01 Vitamin D 25-OH 38.7 ng/mL Normal [facility] Comment on above: Result Comment: Ashley min D 25(OH) Status Range Deficiency <20 ng/mL (50nmol/L) Insufficiency 20 - 30 ng/mL (50 - 75 nmol/L) Sufficiency 30 - 100 ng/mL (75 - 250 nmol/L) Toxicity >100 ng/mL (>250 nmol/L) Performed By: #### L 503.0105, L503.6150, L100.0100, L500.4050, L503.6550, L501.9520, L506.1000, L506.0400 ####[facility] [address] [place], [address] MR/BMS.BPon 05-07-2024 MR/BMS.BP Normal [facility] Basic Metabolic Profile (BMP )on 04-03-2024 BUN Normal 7-18 [facility] Comment on above: Result Comment: Canc elled via OM: Order cancelled - Patient discharged Performed By: #### L 100.0100, L500.2500 ####[facility] [address] [place], [address] BUN/CRE Normal 10-20 [facility] Comment on above: Result Comment: Canc elled via OM: Order cancelled - Patient discharged Performed By: #### L 100.0100, L500.2500 ####[facility] [address] [place], [address] CA,Total Normal 8.5-10.1 [facility] Comment on above: Result Comment: Canc elled via OM: Order cancelled - Patient discharged Performed By: #### L 100.0100, L500.2500 ####[facility] [address] [place], [address] CL Normal 98-107 [facility] Comment on above: Result Comment: Canc elled via OM: Order cancelled - Patient discharged Performed By: #### L 100.0100, L500.2500 ####[facility] [address] [place], [address] CO2 Normal 21.0-32.0 [facility] Comment on above: Result Comment: Canc elled via OM: Order cancelled - Patient discharged Performed By: #### L 100.0100, L500.2500 ####[facility] [address] [place], [address] CREAT,SERUM Normal 0.55-1.02 [facility] Comment on above: Result Comment: Canc elled via OM: Order cancelled - Patient discharged Performed By: #### L 100.0100, L500.2500 ####[facility] [address] [place], [address] EST GFR Normal >60 [facility] Comment on above: Result Comment: Canc elled via OM: Order cancelled - Patient discharged Performed By: #### L 100.0100, L500.2500 ####[facility] [address] [place], [address] EST GFR - AA Normal >60 [facility] Comment on above: Result Comment: Canc elled via OM: Order cancelled - Patient discharged Performed By: #### L 100.0100, L500.2500 ####[facility] [address] [place], [address] GAP Normal 5-15 [facility] Comment on above: Result Comment: Canc elled via OM: Order cancelled - Patient discharged Performed By: #### L 100.0100, L500.2500 ####[facility] [address] [place], [address] GLU Normal 74-106 [facility] Comment on above: Result Comment: Canc elled via OM: Order cancelled - Patient discharged Performed By: #### L 100.0100, L500.2500 ####[facility] [address] [place], [address] Potassium Normal 3.5-5.1 [facility] Comment on above: Result Comment: Canc elled via OM: Order cancelled - Patient discharged Performed By: #### L 100.0100, L500.2500 ####[facility] [address] [place], [address] Basic Metabolic Profile (BMP) Normal 136-145 [facility] Comment on above: Result Comment: Canc elled via OM: Order cancelled - Patient discharged Performed By: #### L 100.0100, L500.2500 ####[facility] [address] [place], [address] CBC W/Diff, Automatedon 08-0 -2023 Absolute Neut Normal 2.0-7.7 [facility] Comment on above: Result Comment: Canc elled via OM: Order cancelled - Patient discharged Performed By: #### L 100.0100, L500.2500 ####[facility] [address] [place], [address] HCT Normal 37-47 [facility] Comment on above: Result Comment: Canc elled via OM: Order cancelled - Patient discharged Performed By: #### L 100.0100, L500.2500 ####[facility] [address] [place], [address] HGB Normal 12.0-15.0 [facility] Comment on above: Result Comment: Canc elled via OM: Order cancelled - Patient discharged Performed By: #### L 100.0100, L500.2500 ####[facility] [address] [place], [address] MCH Normal 27.0-32.0 [facility] Comment on above: Result Comment: Canc elled via OM: Order cancelled - Patient discharged Performed By: #### L 100.0100, L500.2500 ####[facility] [address] [place], [address] MCHC Normal 32-36 [facility] Comment on above: Result Comment: Canc elled via OM: Order cancelled - Patient discharged Performed By: #### L 100.0100, L500.2500 ####[facility] [address] [place], [address] MCV Normal 81-99 [facility] Comment on above: Result Comment: Canc elled via OM: Order cancelled - Patient discharged Performed By: #### L 100.0100, L500.2500 ####[facility] [address] [place], [address] NEUT% Normal 47-70 [facility] Comment on above: Result Comment: Canc elled via OM: Order cancelled - Patient discharged Performed By: #### L 100.0100, L500.2500 ####[facility] [address] [place], [address] PLT Normal 150-450 [facility] Comment on above: Result Comment: Canc elled via OM: Order cancelled - Patient discharged Performed By: #### L 100.0100, L500.2500 ####[facility] [address] [place], [address] RBC Normal 4.2-5.4 [facility] Comment on above: Result Comment: Canc elled via OM: Order cancelled - Patient discharged Performed By: #### L 100.0100, L500.2500 ####[facility] [address] [place], [address] RDW CV Normal 11.6-14.6 [facility] Comment on above: Result Comment: Canc elled via OM: Order cancelled - Patient discharged Performed By: #### L 100.0100, L500.2500 ####[facility] [address] [place], [address] RDW SD Normal 35.1-43.9 [facility] Comment on above: Result Comment: Canc elled via OM: Order cancelled - Patient discharged Performed By: #### L 100.0100, L500.2500 ####[facility] [address] [place], [address] WBC Normal 4.4-11.0 [facility] Comment on above: Result Comment: Canc elled via OM: Order cancelled - Patient discharged Performed By: #### L 100.0100, L500.2500 ####[facility] [address] [place], [address] Endocrinology Visit Reporton 04-02-2024 Endocrinology Visit Report Normal [facility] Basic Metabolic Profile (BMP )on 03-27-2024 BUN Normal 7-18 [facility] Comment on above: Result Comment: Canc elled via OM: Order cancelled - Patient discharged Performed By: #### L 500.2500, L100.0100 ####[facility] [address] [place], [address] BUN/CRE Normal 10-20 [facility] Comment on above: Result Comment: Canc elled via OM: Order cancelled - Patient discharged Performed By: #### L 500.2500, L100.0100 ####[facility] [address] [place], [address] CA,Total Normal 8.5-10.1 [facility] Comment on above: Result Comment: Canc elled via OM: Order cancelled - Patient discharged Performed By: #### L 500.2500, L100.0100 ####[facility] [address] [facility] [place], [address] CL Normal 98-107 [facility] Comment on above: Result Comment: Canc elled via OM: Order cancelled - Patient discharged Performed By: #### L 500.2500, L100.0100 ####[facility] [address] [place], [address] CO2 Normal 21.0-32.0 [facility] Comment on above: Result Comment: Canc elled via OM: Order cancelled - Patient discharged Performed By: #### L 500.2500, L100.0100 ####[facility] [address] [place], [address] CREAT,SERUM Normal 0.55-1.02 [facility] Comment on above: Result Comment: Canc elled via OM: Order cancelled - Patient discharged Performed By: #### L 500.2500, L100.0100 ####[facility] [address] [place], [address] EST GFR Normal >60 [facility] Comment on above: Result Comment: Canc elled via OM: Order cancelled - Patient discharged Performed By: #### L 500.2500, L100.0100 ####[facility] [address] [place], [address] EST GFR - AA Normal >60 [facility] Comment on above: Result Comment: Canc elled via OM: Order cancelled - Patient discharged Performed By: #### L 500.2500, L100.0100 ####[facility] [address] [place], [address] GAP Normal 5-15 [facility] Comment on above: Result Comment: Canc elled via OM: Order cancelled - Patient discharged Performed By: #### L 500.2500, L100.0100 ####[facility] [address] [place], [address] GLU Normal 74-106 [facility] Comment on above: Result Comment: Canc elled via OM: Order cancelled - Patient discharged Performed By: #### L 500.2500, L100.0100 ####[facility] [address] [place], [address] Potassium Normal 3.5-5.1 [facility] Comment on above: Result Comment: Canc elled via OM: Order cancelled - Patient discharged Performed By: #### L 500.2500, L100.0100 ####[facility] [address] [place], [address] Basic Metabolic Profile (BMP) Normal 136-145 [facility] Comment on above: Result Comment: Canc elled via OM: Order cancelled - Patient discharged Performed By: #### L 500.2500, L100.0100 ####[facility] [address] [place], [address] CBC W/Diff, Automatedon 07-3 0-2023 Absolute Neut Normal 2.0-7.7 [facility] Comment on above: Result Comment: Canc elled via OM: Order cancelled - Patient discharged Performed By: #### L 500.2500, L100.0100 ####[facility] [address] [place], [address] HCT Normal 37-47 [facility] Comment on above: Result Comment: Canc elled via OM: Order cancelled - Patient discharged Performed By: #### L 500.2500, L100.0100 ####[facility] [address] [place], [address] HGB Normal 12.0-15.0 [facility] Comment on above: Result Comment: Canc elled via OM: Order cancelled - Patient discharged Performed By: #### L 500.2500, L100.0100 ####[facility] [address] [place], [address] MCH Normal 27.0-32.0 [facility] Comment on above: Result Comment: Canc elled via OM: Order cancelled - Patient discharged Performed By: #### L 500.2500, L100.0100 ####[facility] [address] [place], [address] MCHC Normal 32-36 [facility] Comment on above: Result Comment: Canc elled via OM: Order cancelled - Patient discharged Performed By: #### L 500.2500, L100.0100 ####[facility] [address] [place], [address] MCV Normal 81-99 [facility] Comment on above: Result Comment: Canc elled via OM: Order cancelled - Patient discharged Performed By: #### L 500.2500, L100.0100 ####[facility] [address] [place], [address] NEUT% Normal 47-70 [facility] Comment on above: Result Comment: Canc elled via OM: Order cancelled - Patient discharged Performed By: #### L 500.2500, L100.0100 ####[facility] [address] [place], [address] PLT Normal 150-450 [facility] Comment on above: Result Comment: Canc elled via OM: Order cancelled - Patient discharged Performed By: #### L 500.2500, L100.0100 ####[facility] [address] [place], [address] RBC Normal 4.2-5.4 [facility] Comment on above: Result Comment: Canc elled via OM: Order cancelled - Patient discharged Performed By: #### L 500.2500, L100.0100 ####[facility] [address] [place], [address] RDW CV Normal 11.6-14.6 [facility] Comment on above: Result Comment: Canc elled via OM: Order cancelled - Patient discharged Performed By: #### L 500.2500, L100.0100 ####[facility] [address] [place], [address] RDW SD Normal 35.1-43.9 [facility] Comment on above: Result Comment: Canc elled via OM: Order cancelled - Patient discharged Performed By: #### L 500.2500, L100.0100 ####[facility] [address] [place], [address] WBC Normal 4.4-11.0 [facility] Comment on above: Result Comment: Canc elled via OM: Order cancelled - Patient discharged Performed By: #### L 500.2500, L100.0100 ####[facility] [address] [place], [address] 36on 11-03-2023 36 Name of caller: Flex Contact phone number: [phone] Relationship to Patient: patient Provider: Dr. Landis [...] hours to return their call: No Normal [place] [facility] COLONOSCOPYon 09-06-2023 Colonoscopy Table formatting fro m the original result was not included. Normal [facility] Colonoscopy studyon 09-06-19 Table formatting fro m [...] of bowel preparation was evaluated using the Kelly Bowel Preparation Scale with scores of: right [...] PM Specimens No specimens collected Procedure Location [address] [id number] Referring Provider Renita Mijares Do [address] [place] [address], [address] [address] Procedure Provider Renita Mijares DO [facility] Work Phone: [facility] Work Phone: Radiology Study observation (narrative) [facility] Work Phone: .Auto Diffon 02-24-2023 Basophil, Absolute 0.0 10 3/mcL Normal 0.0-0.2 [facility] ([place]) Comment on above: Performed By: #### C ROMEO BRYANT ANEU #### [address] [place], [place] [address] Basophils/100 WBC (Bld) 0.2 % Normal 0.0-2.5 [facility] ([place]) Comment on above: Performed By: #### C ROMEO BRYANT ANEU #### [address] [address] Eosinophil, Absolute 0.4 10 3/mcL Normal 0.0-0.4 [facility] ([place]) Comment on above: Performed By: #### C BC, ADIFF, ANEU #### [address] [address] Eosinophils/100 WBC (Bld) 3.7 % Normal 0.0-7.0 [facility] ([place]) Comment on above: Performed By: #### C BC, ADIFF, ANEU #### [address] [address] Lymphocyte, Absolute 1.9 10 3/mcL Normal 0.8-3.9 [facility] ([place]) Comment on above: Performed By: #### C BC, ADIFF, ANEU #### [address] [address] Lymphocytes/100 WBC (Bld) 19.2 % Normal 10.0-50.0 [facility] ([place]) Comment on above: Performed By: #### C MANNY, ADIFF, ANEU #### [address] [address] Monocyte, Absolute 0.6 10 3/mcL Normal 0.2-1.0 [facility] ([place]) Comment on above: Performed By: #### C MANNY, ADIFF, ANEU #### [address] [address] Monocytes/100 WBC (Bld) 6.5 % Normal 1.7-13.0 [facility] ([place]) Comment on above: Performed By: #### C BC, ADIFF, ANEU #### [address] [address] Neutrophils/100 WBC (Bld) 70.4 % Normal 37.0-80.0 [facility] ([place]) Comment on above: Performed By: #### C BC, ADIFF, ANEU #### [address] [address] .NEUABSon 02-24-2023 Neutrophil, Absolute 6.9 10 3/mcL High 2.9-6.2 [facility] ([place]) Comment on above: Performed By: #### C ROMEO BRYANT ANEU #### [address] [address] CBCon 02-24-2023 Erythrocyte distribution width (RBC) [Ratio] 14.5 % Normal 11.5-14.5 [facility] ([place]) Comment on above: Performed By: #### ROMEO FRANCIS, PATRICK #### [address] [address] Hematocrit (Bld) [Volume fraction] 34.4 % Low 37.0-47.0 [facility] ([place]) Comment on above: Performed By: #### ROMEO FRANCIS ANEU #### [address] [address] Hgb 11.4 G/dL Low 12.0-16.0 [facility] ([place]) Comment on above: Performed By: #### ROMEO FRANCIS, PATRICK #### [address] [address] MCH (RBC) [Entitic mass] 29.9 pg Normal 27.0-31.2 [facility] ([place]) Comment on above: Performed By: #### ROMEO FRANCIS, ANEU #### [address] [address] MCHC 33.3 G/dL Normal 33.0-37.0 [facility] ([place]) Comment on above: Performed By: #### ROMEO FRANCIS, ANEU #### [address] [address] MCV (RBC) [Entitic vol] 89.7 fL Normal 80.0-94.0 [facility] ([place]) Comment on above: Performed By: #### ROMEO FRANCIS, ANEU #### [address] [address] Platelet 180 10 3/mcL Normal 130-400 [facility] ([place]) Comment on above: Performed By: #### ROMEO FRANCIS, ANEU #### [address] [place], [place] [address] Platelet mean volume (Bld) [Entitic vol] 7.2 fL Low 7.4-10.4 [facility] ([place]) Comment on above: Performed By: #### C BCBELINDAIFF, ANEU #### [address] [place], [place] [address] RBC 3.83 10 6/mcL Low 4.20-5.40 [facility] ([place]) Comment on above: Performed By: #### C BC, ROMEO, ANEU #### [address] [place], [place] [address] WBC 9.8 10 3/mcL Normal 4.6-10.8 [facility] ([place]) Comment on above: Performed By: #### C MANNY, ROMEO, ANEU #### [facility] [address] [place], [place] [address] LABORATORYOrdered By: Soha Jiang on 02-24-2023 Blood Glucose Testing Reason Routine (02/24/23 11:46 AM) [facility] Glucose [Mass/Vol] 209 mg/dL Invalid Interpretation Code 82 - 115 mg/dL [facility] Blood Glucose Testing Reason Routine (02/24/23 7:05 AM) [facility] Glucose [Mass/Vol] 139 mg/dL Invalid Interpretation Code 82 - 115 mg/dL [facility] LABORATORYOrdered By: SYSTEM SYSTEM on 02-24-2023 [...] Basophil, Absolute 0.0 10 3/mcL Normal 0.0-0.2 [facility] ([place]) Comment on above: Performed By: #### B MP, GFR, CBC, ADIFF, ANEU #### [address] [address] Basophils/100 WBC (Bld) 0.1 % Normal 0.0-2.5 [facility] ([place]) Comment on above: Performed By: #### B MP, GFR, CBC, ADIFF, ANEU #### [address] [address] Eosinophil, Absolute 0.0 10 3/mcL Normal 0.0-0.4 [facility] ([place]) Comment on above: Performed By: #### B MP, GFR, CBC, ADIFF, ANEU #### [address] [address] Eosinophils/100 WBC (Bld) 0.1 % Normal 0.0-7.0 [facility] ([place]) Comment on above: Performed By: #### B MP, GFR, CBC, ADIFF, ANEU #### [address] [address] Lymphocyte, Absolute 1.4 10 3/mcL Normal 0.8-3.9 [facility] ([place]) Comment on above: Performed By: #### B MP, GFR, CBC, ADIFF, ANEU #### [address] [address] Lymphocytes/100 WBC (Bld) 12.5 % Normal 10.0-50.0 [facility] ([place]) Comment on above: Performed By: #### B MP, GFR, CBC, ADIFF, ANEU #### [address] [address] Monocyte, Absolute 0.5 10 3/mcL Normal 0.2-1.0 [facility] ([place]) Comment on above: Performed By: #### B MP, GFR, CBC, ADIFF, ANEU #### [address] [address] Monocytes/100 WBC (Bld) 5.0 % Normal 1.7-13.0 [facility] ([place]) Comment on above: Performed By: #### B MP, GFR, CBC, ADIFF, ANEU #### [address] [address] Neutrophils/100 WBC (Bld) 82.3 % High 37.0-80.0 [facility] ([place]) Comment on above: Performed By: #### B MP, GFR, CBC, ADIFF, ANEU #### [address] [address] .GFRon 02-23-2023 GFR 61 ml/min/1.73sqm Normal [facility] ([place]) Comment on above: Result Comment: GFR Population [...] B MP, GFR, CBC, ADIFF, ANEU #### [address] [address] GFR Non- 51 ml/min/1.73sqm Normal [facility] ([place]) Comment on above: Result Comment: GFR Population [...] B MP, GFR, CBC, ADIFF, ANEU #### [address] [address] .NEUABSon 02-23-2023 Neutrophil, Absolute 9.0 10 3/mcL High 2.9-6.2 [facility] ([place]) Comment on above: Performed By: #### B MP, GFR, CBC, ADIFF, ANEU #### [address] [address] BMPon 02-23-2023 BUN/Creatinine Ratio 16 ratio Normal 7-27 [facility] ([place]) Comment on above: Performed By: #### B MP, GFR, CBC, ADIFF, ANEU #### [address] [address] Calcium [Mass/Vol] 8.7 mg/dL Normal 8.4-10.2 [facility] ([place]) Comment on above: Performed By: #### B MP, GFR, CBC, ADIFF, ANEU #### [address] [address] Chloride [Moles/Vol] 103 mmol/L Normal 98-107 [facility] ([place]) Comment on above: Performed By: #### B MP, GFR, CBC, ADIFF, ANEU #### [address] [address] CO2 [Moles/Vol] 30 mmol/L Normal 23-31 [facility] ([place]) Comment on above: Performed By: #### B MP, GFR, CBC, ADIFF, ANEU #### [address] [address] Creatinine [Mass/Vol] 1.09 mg/dL High 0.55-1.02 [facility] ([place]) Comment on above: Performed By: #### B MP, GFR, CBC, ADIFF, ANEU #### [address] [address] Electrolyte Balance 8.0 mEq/L Normal 4.0-15.0 [facility] ([place]) Comment on above: Performed By: #### B MP, GFR, CBC, ADIFF, ANEU #### [address] [address] Glucose [Mass/Vol] 239 mg/dL High 80-115 [facility] ([place]) Comment on above: Performed By: #### B MP, GFR, CBC, ADIFF, ANEU #### [address] [address] Potassium [Moles/Vol] 4.8 mmol/L Normal 3.5-5.1 [facility] ([place]) Comment on above: Performed By: #### B MP, GFR, CBC, ADIFF, ANEU #### [address] [address] Sodium [Moles/Vol] 141 mmol/L Normal 136-145 [facility] ([place]) Comment on above: Performed By: #### B MP, GFR, CBC, ADIFF, ANEU #### [address] [address] Urea nitrogen [Mass/Vol] 17 mg/dL Normal 7-18 [facility] ([place]) Comment on above: Performed By: #### B MP, GFR, CBC, ADIFF, ANEU #### [address] [address] CBCon 02-23-2023 Erythrocyte distribution width (RBC) [Ratio] 14.4 % Normal 11.5-14.5 [facility] ([place]) Comment on above: Performed By: #### B MP, GFR, CBC, ADIFF, ANEU #### [address] [address] Hematocrit (Bld) [Volume fraction] 34.9 % Low 37.0-47.0 [facility] ([place]) Comment on above: Performed By: #### B MP, GFR, CBC, ADIFF, ANEU #### [address] [address] Hgb 11.6 G/dL Low 12.0-16.0 [facility] ([place]) Comment on above: Performed By: #### B MP, GFR, CBC, ADIFF, ANEU #### [address] [address] MCH (RBC) [Entitic mass] 29.6 pg Normal 27.0-31.2 [facility] ([place]) Comment on above: Performed By: #### B MP, GFR, CBC, ADIFF, ANEU #### [address] [address] MCHC 33.1 G/dL Normal 33.0-37.0 [facility] ([place]) Comment on above: Performed By: #### B MP, GFR, CBC, ADIFF, ANEU #### [address] [address] MCV (RBC) [Entitic vol] 89.4 fL Normal 80.0-94.0 [facility] ([place]) Comment on above: Performed By: #### B MP, GFR, CBC, ADIFF, ANEU #### [address] [address] Platelet 231 10 3/mcL Normal 130-400 [facility] ([place]) Comment on above: Performed By: #### B MP, GFR, CBC, ADIFF, ANEU #### [address] [address] Platelet mean volume (Bld) [Entitic vol] 7.4 fL Normal 7.4-10.4 [facility] ([place]) Comment on above: Performed By: #### B MP, GFR, CBC, ADIFF, ANEU #### [address] [address] RBC 3.90 10 6/mcL Low 4.20-5.40 [facility] ([place]) Comment on above: Performed By: #### B MP, GFR, CBC, ADIFF, ANEU #### [address] [address] WBC 10.9 10 3/mcL High 4.6-10.8 [facility] ([place]) Comment on above: Performed By: #### B MP, GFR, CBC, ADIFF, ANEU #### [address] [address] LABORATORYOrdered By: Jacob Farmer on 02-23-2023 Glucose [Mass/Vol] 171 mg/dL Invalid Interpretation Code 82 - 115 mg/dL [facility] LABORATORYOrdered By: Eduardo Ghotra on 02-23-2023 Blood Glucose Testing Reason Routine (02/23/23 9:26 PM) [facility] LABORATORYOrdered By: Freddy Salomon on 02-23-2023 Stated Blood Glucose 187 [facility] LABORATORYOrdered By: Robert Wright on 02-23-2023 Basophil, [...] [Mass ratio] 16 ratio Invalid Interpretation Code - 27 ratio AO ADM SS Gel ABOon 02-22-2023 ABO/Rh Interp Negative Invalid Interpretation Code [facility] ([place]) Comment on above: Performed By: #### A CASEY VILLARREAL #### [facility] [address] [place], [place] [address] Gel ABSon 02-22-2023 Antibody Screen Gel Negative Normal [facility] ([place]) Comment on above: Performed By: #### A CASEY VILLARREAL #### [facility] [address] [place], [place] [address] LABORATORYOrdered By: Kiran Harding on 02-22-2023 Stated Blood Glucose 273 [facility] LABORATORYOrdered By: Aline weiss on 02-22-2023 Stated Blood Glucose 301 [facility] Time of Stated Blood Glucose [id number] [facility] LABORATORYOrdered By: Ann Marie Joiner on [...] 02/22/2023 1:07:27 PM Ordering Provider: PJ MAHONEY [facility] ([place]) CT KNEE W/O CONTRAST RIGHTon 02-04-2023 CT [...] Date: 02/04/2023 9:09:05 AM Ordering Provider: PJ MAHONEY [facility] ([place]) .Auto Diffon 02-03-2023 Basophil, Absolute 0.0 10 3/mcL Normal 0.0-0.2 [facility] ([place]) Comment on above: Performed By: #### C ROMEO BRYANT ANEU #### [place] [address] [address] Basophils/100 WBC (Bld) 0.5 % Normal 0.0-2.5 [facility] ([place]) Comment on above: Performed By: #### C ROMEO BRYANT ANEU #### [address] [address] Eosinophil, Absolute 0.1 10 3/mcL Normal 0.0-0.4 [facility] ([place]) Comment on above: Performed By: #### C BC, ADIFF, ANEU #### [address] [address] Eosinophils/100 WBC (Bld) 2.0 % Normal 0.0-7.0 [facility] ([place]) Comment on above: Performed By: #### C BC, ADIFF, ANEU #### [address] [address] Lymphocyte, Absolute 2.2 10 3/mcL Normal 0.8-3.9 [facility] ([place]) Comment on above: Performed By: #### C BC, ADIFF, ANEU #### [address] [address] Lymphocytes/100 WBC (Bld) 29.2 % Normal 10.0-50.0 [facility] ([place]) Comment on above: Performed By: #### C BC, ADIFF, ANEU #### [address] [address] Monocyte, Absolute 0.5 10 3/mcL Normal 0.2-1.0 [facility] ([place]) Comment on above: Performed By: #### C BC, ADIFF, ANEU #### [address] [address] Monocytes/100 WBC (Bld) 6.3 % Normal 1.7-13.0 [facility] ([place]) Comment on above: Performed By: #### C BC, ADIFF, ANEU #### [address] [address] Neutrophils/100 WBC (Bld) 62.0 % Normal 37.0-80.0 [facility] ([place]) Comment on above: Performed By: #### C BC, ADIFF, ANEU #### [address] [address] .GFRon 02-03-2023 GFR 74 ml/min/1.73sqm Normal [facility] ([place]) Comment on above: Result Comment: GFR Population [...] #### C ROMEO BRYANT, ANEU #### [place] [address] [address] GFR Non- 61 ml/min/1.73sqm Normal [facility] ([place]) Comment on above: Result Comment: GFR Population [...] #### C ROMEO BRYANT, ANEU #### [place] [address] [address] .NEUABSon 02-03-2023 Neutrophil, Absolute 4.7 10 3/mcL Normal 2.9-6.2 [facility] ([place]) Comment on above: Performed By: #### C ROMEO BRYANT, ANEU #### [place] [address] [address] A1Con 02-03-2023 HbA1c (Bld) [Mass fraction] 6.7 % High 4.3-6.4 [facility] ([place]) Comment on above: Performed By: #### ROMEO FRANCIS, PATRICK #### [address] [address] ALBon 02-03-2023 Albumin Level 3.6 G/dL Normal 3.4-4.8 [facility] ([place]) Comment on above: Performed By: #### ROMEO FRANCIS, ANEU #### [address] [address] BMPon 02-03-2023 BUN/Creatinine Ratio 23 ratio Normal 7-27 [facility] ([place]) Comment on above: Performed By: #### ROMEO FRANCIS, ANEU #### [address] [address] Calcium [Mass/Vol] 8.9 mg/dL Normal 8.4-10.2 [facility] ([place]) Comment on above: Performed By: #### ROMEO FRANCIS, ANEU #### [address] [address] Chloride [Moles/Vol] 100 mmol/L Normal 98-107 [facility] ([place]) Comment on above: Performed By: #### ROMEO FRANCIS, ANEU #### [address] [address] CO2 [Moles/Vol] 30 mmol/L Normal 23-31 [facility] ([place]) Comment on above: Performed By: #### C ROMEO BRYANT, ANEU #### [address] [address] Creatinine [Mass/Vol] 0.93 mg/dL Normal 0.55-1.02 [facility] ([place]) Comment on above: Performed By: #### ROMEO FRANCIS, ANEU #### [address] [address] Electrolyte Balance 9.0 mEq/L Normal 4.0-15.0 [facility] ([place]) Comment on above: Performed By: #### C ROMEO BRYANT, ANEU #### [address] [address] Glucose [Mass/Vol] 258 mg/dL High 80-115 [facility] ([place]) Comment on above: Performed By: #### C MANNY, ROMEO, ANEU #### [place] [address] [address] Potassium [Moles/Vol] 4.7 mmol/L Normal 3.5-5.1 [facility] ([place]) Comment on above: Performed By: #### C ROMEO BRYANT, ANEU #### [address] [address] Sodium [Moles/Vol] 139 mmol/L Normal 136-145 [facility] ([place]) Comment on above: Performed By: #### C ROMEO BRYANT, ANEU #### [address] [address] Urea nitrogen [Mass/Vol] 21 mg/dL High 7-18 [facility] ([place]) Comment on above: Performed By: #### C ROMEO BRYANT, ANEU #### [address] [address] CBCon 02-03-2023 Erythrocyte distribution width (RBC) [Ratio] 15.2 % High 11.5-14.5 [facility] ([place]) Comment on above: Order Comment: Pre-A dmission Testing Performed By: #### C ROMEO BRYANT, ANEU #### [address] [address] Hematocrit (Bld) [Volume fraction] 36.6 % Low 37.0-47.0 [facility] ([place]) Comment on above: Order Comment: Pre-A dmission Testing Performed By: #### C ROMEO BRYANT, ANEU #### [place] [address] [address] Hgb 12.0 G/dL Normal 12.0-16.0 [facility] ([place]) Comment on above: Order Comment: Pre-A dmission Testing Performed By: #### C ROMEO BRYANT, ANEU #### [address] [address] MCH (RBC) [Entitic mass] 29.5 pg Normal 27.0-31.2 [facility] ([place]) Comment on above: Order Comment: Pre-A dmission Testing Performed By: #### C ROMEO BRYANT, ANEU #### [place] [address] [address] MCHC 32.8 G/dL Low 33.0-37.0 [facility] ([place]) Comment on above: Order Comment: Pre-A dmission Testing Performed By: #### C ROMEO BRYANT, ANEU #### [address] [address] MCV (RBC) [Entitic vol] 90.0 fL Normal 80.0-94.0 [facility] ([place]) Comment on above: Order Comment: Pre-A dmission Testing Performed By: #### C ROMEO BRYANT, ANEU #### [address] [address] Platelet 234 10 3/mcL Normal 130-400 [facility] ([place]) Comment on above: Order Comment: Pre-A dmission Testing Performed By: #### ROMEO FRANCIS, ANEU #### [address] [address] Platelet mean volume (Bld) [Entitic vol] 7.0 fL Low 7.4-10.4 [facility] ([place]) Comment on above: Order Comment: Pre-A dmission Testing Performed By: #### C ROMEO BRYANT, ANEU #### [address] [address] RBC 4.07 10 6/mcL Low 4.20-5.40 [facility] ([place]) Comment on above: Order Comment: Pre-A dmission Testing Performed By: #### C ROMEO BRYANT, ANEU #### [place] [address] [address] WBC 7.5 10 3/mcL Normal 4.6-10.8 [facility] ([place]) Comment on above: Order Comment: Pre-A dmission Testing Performed By: #### C BCBELINDAIFF, ANEU #### [place] [address] [place], [place] [address] Gel ABOon 02-03-2023 ABO/Rh Interp Negative Invalid Interpretation Code [facility] ([place]) Comment on above: Order Comment: SURG EDMOND 02/22 -AC Performed By: #### C BC, ADIFF, ANEU #### [facility] [address] [place], [place] [address] Gel ABSon 02-03-2023 Antibody Screen Gel Negative Normal [facility] ([place]) Comment on above: Order Comment: SURG EDMOND 02/22 -AC Performed By: #### C BCBELINDAIFF, ANEU #### [facility] [address] [place], [place] [address] LABORATORYOrdered By: Ann Marie Joiner on 02-03-2023 ABO/Rh Interp Negative Invalid Interpretation Code AO BB SS Antibody Screen Gel Negative ABSC (02/03/23 2:34 PM) Invalid Interpretation Code AO BB SS LABORATORYOrdered By: [employer] on 02-03-2023 Albumin BCP dye [Mass/Vol] [...] peptide B (Bld) [Mass/Vol] 14.9 pg/mL 0-100 [facility] Basophil percentageOrdered B y: Dr. Mckeon on 09-17-2022 Chloride [Moles/Vol] 97 mmol/L 98-107 [facility] Glucose [Mass/Vol] 146 mg/dL 74-106 [facility] Comment on above: Fasting Glucose resu lt greater than or equal to 126 mg/dL suggests DIABETES MELLITUS per A.D.A. criteria. Potassium [Moles/Vol] 3.6 mmol/L 3.5-5.1 [facility] Sodium [Moles/Vol] 139 mmol/L 136-145 [facility] Glucose Glucometer (dC) [M ass/Vol]Ordered By: Dr. Anderson on 09-17-2022 Glucose [Mass/Vol] 129 mg/dL 74-106 [facility] Comment on above: MANAGEMENT OF PATIEN T CARE PER NURSING PROTOCOL Influenza virus A and B and SARS-CoV-2 (COVID-19) Ag panel - Upper respiratory specimOrdered By: Dr. Anderson on 09-17-2022 SARS-CoV-2 (COVID-19) RNA ROJELIO+probe Ql (Resp) [facility] Laboratory - Chemistry and C hemistry - challengeOrdered By: Dr. Mckeon on 09-17-2022 CO2 [Moles/Vol] 32.0 mmol/L 21.0-32.0 [facility] Urea nitrogen/Creatinine [Mass ratio] 18.4 mg/mg 10-20 [facility] No Panel InformationOrdered By: Dr. Mckeon on 09-17-2022 Estimated Creatinine Clearance Calc 56.41 ml/min [facility] Estimated GFR (MDRD) Amer 84 mL/min >60 [facility] Comment on above: GFR Calc Estimated GFR (MDRD) Non-Af Amer 70 mL/min >60 [facility] Comment on above: Non- GFR Calc Serum or plasma calcium dread urement (mass/volume)Ordered By: Dr. Mckeon on 09-17-2022 Calcium [Mass/Vol] 8.8 mg/dL 8.5-10.1 [facility] Serum or plasma creatinine m easurement (mass/volume)Ordered By: Dr. Mckeon on 09-17-2022 Creatinine [Mass/Vol] 0.87 mg/dL 0.55-1.02 [facility] Comment on above: The validity of the calculated GFR & GFRAA in patients over 70 years has not been determined. Clinical correlation is essential. Serum or plasma urea nitroge n measurement (mass/volume)Ordered By: Dr. Mckeon on 09-17-2022 Urea nitrogen [Mass/Vol] 16 mg/dL 7-18 [facility] Thin prep Papanicolaou smear with manual screeningOrdered By: Dr. Mckeon on 09-17-2022 Thin prep Papanicolaou smear with manual screening 10 5-15 [facility] Absolute lymphocyte countOrd ered By: Dr. Dee on 09-16-2022 Lymphocytes Auto (Unsp spec) [#/Vol] 1.58 10*3/uL 0.83-4.51 [facility] Assessment of wrist artery p atency prior to arterial punctureOrdered By: Dr. Dee on 09-16-2022 Arterial patency Wrist artery --pre arterial puncture Positive [facility] Base excessOrdered By: Dr. Krystin dean on 09-16-2022 Base excess Calc (BldV) [Moles/Vol] 7 mmol/L -2-2 [facility] Basophil percentageOrdered B y: Dr. Dee on 09-16-2022 Basophil percentage 31.9 mmol/L 22-26 [facility] Basophils/100 WBC (Bld) 95 % 95-99 [facility] Basophil percentage 0 SEEN /hpf 0-5 [facility] Basophils/100 WBC (Bld) 0.4 % 0-1 [facility] Eosinophils/100 WBC (Bld) 3.3 % 0-5 [facility] Neutrophils (Bld) [#/Vol] 5.8 10*3/uL 2.0-7.7 [facility] Neutrophils/100 WBC (Bld) 69.5 % 47-70 [facility] WBC (Bld) [#/Vol] 8.4 10*3/uL 4.4-11.0 [facility] Bilirubin Test strip Ql (U)O rdered By: Dr. Dee on 09-16-2022 Bilirubin Ql (U) Negative Negative [facility] Blood erythrocytes count (nu mber/volume)Ordered By: Dr. Dee on 09-16-2022 RBC (Bld) [#/Vol] 4.41 10*6/uL 4.2-5.4 [facility] Blood hemoglobin measurement (mass/volume)Ordered By: Dr. Dee on 09-16-2022 Hemoglobin (Bld) [Mass/Vol] 12.2 g/dL 12.0-15.0 [facility] Blood lymphocytes/100 leukoc ytesOrdered By: Dr. Dee on 09-16-2022 Lymphocytes/100 WBC (Bld) 18.8 % 19-41 [facility] Blood monocytes/100 leukocyt esOrdered By: Dr. Dee on 09-16-2022 Monocytes/100 WBC (Bld) 7.5 % 0-10 [facility] Blood platelet mean volumeOr dered By: Dr. Dee on 09-16-2022 Platelet mean volume (Bld) [Entitic vol] 10.1 fL 6.2-12.0 [facility] CO2 (BldA) [Partial pressure ]Ordered By: Dr. Dee on 09-16-2022 CO2 (Bld) [Partial pressure] 53.2 mm[Hg] 35-45 [facility] Determination of erythrocyte mean corpuscular volume (MCV)Ordered By: Dr. Dee on 09-16-2022 MCV (RBC) [Entitic vol] 90.0 fL 81-99 [facility] Hematocrit Auto (Bld) [Volum e fraction]Ordered By: Dr. Dee on 09-16-2022 Hematocrit (Bld) [Volume fraction] 39.7 % 37-47 [facility] Ketones Test strip Ql (U)Ord ered By: Dr. Dee on 09-16-2022 Ketones Ql (U) Negative Negative [facility] Laboratory - Chemistry and C hemistry - challengeOrdered By: Dr. Dee on 09-16-2022 Natriuretic peptide B (Bld) [Mass/Vol] 76.4 pg/mL 0-100 [facility] Laboratory - Hematology and Cell countsOrdered By: Dr. Dee on 09-16-2022 Erythrocyte distribution width (RBC) [Entitic vol] 45.8 fL 35.1-43.9 [facility] Erythrocyte distribution width (RBC) [Ratio] 14.1 % 11.6-14.6 [facility] Immature granulocytes/100 WBC (Bld) 0.500 % 0.0-0.9 [facility] Comment on above: IG% - Immature Granu locytes (promyelocytes, myelocytes and metamyelocytes) > 1% indicates that a LEFT SHIFT is Present. MCH (RBC) [Entitic mass] 27.7 pg 27.0-32.0 [facility] Nucleated RBC/100 WBC (Bld) [Ratio] 0 % 0-5 [facility] MCHC Auto (RBC) [Mass/Vol]Or dered By: Dr. Dee on 09-16-2022 MCHC (RBC) [Mass/Vol] 30.7 g/dL 32-36 [facility] Mucus LM Ql (Urine sed)Order ed By: Dr. Dee on 09-16-2022 Mucus Ql (Urine sed) 0 SEEN /hpf [facility] Nitrite Test strip Ql (U)Ord ered By: Dr. Dee on 09-16-2022 Nitrite Ql (U) Negative Negative [facility] No Panel InformationOrdered By: Dr. Dee on 09-16-2022 Blood Gas Liter Flow 2.0 /min [facility] Blood Gas Sample Site L Radial [facility] Blood Gas Specimen Type ART [facility] Blood Gas Total CO2 34 mmol/L [facility] Oxygen Delivery Device Cannula [facility] [place]roponin I High Sensitivity 6 pg/mL 3.0-54.0 [facility] Comment on above: Please Note: New Selene t Units and Gender Specific Reference Ranges. For more information see Policy Stat Procedure [place] High Sensitivity Troponin (TNIH) and attachments. Oxygen (BldA) [Partial press ure]Ordered By: Dr. Dee on 09-16-2022 Oxygen (Bld) [Partial pressure] 79 mmHG 75-100 [facility] Platelets bldOrdered By: Dr. Dee on 09-16-2022 Platelets (Bld) [#/Vol] 254 10*3/uL 150-450 [facility] Protein Test strip Ql (U)Ord ered By: Dr. Dee on 09-16-2022 Protein Ql (U) Negative Negative [facility] Squamous epithelial cells de tection in urine sediment by light microscopyOrdered By: Dr. Dee on 09-16-2022 Epithelial cells.squamous LM Ql (Urine sed) 0-5 SEEN /hpf 5-10 [facility] Urine blood detectionOrdered By: Dr. Dee on 09-16-2022 RBC Ql (U) Negative Negative [facility] RBC Ql (U) 0 SEEN /hpf 0-5 [facility] Urine clarityOrdered By: Dr. Dee on 09-16-2022 Clarity (U) Clear Clear [facility] Urine color determinationOrd ered By: Dr. Dee on 09-16-2022 Color (U) Yellow Yellow [facility] Urine glucose detectionOrder ed By: Dr. Dee on 09-16-2022 Glucose Ql (U) Normal mg/dl Normal [facility] Urine leukocyte esterase det ection by dipstickOrdered By: Dr. Dee on 09-16-2022 Leukocyte esterase Test strip Ql (U) Negative Negative [facility] Urine pHOrdered By: Dr. Lloyd joshi on 09-16-2022 pH (U) 7.0 [pH] 5.0 - 8.0 [facility] Urine sediment bacteria coun t by microscopy (number/high power field)Ordered By: Dr. Dee on 09-16-2022 Bacteria LM.HPF (Urine sed) [#/Area] 0 /[HPF] None Seen [facility] Urine specific gravity measu rementOrdered By: Dr. Dee on 09-16-2022 Specific gravity (U) [Rel density] 1.005 1.002-1.030 [facility] Urobilinogen Auto test strip Ql (U)Ordered By: Dr. Dee on 09-16-2022 Urobilinogen Ql (U) Normal mg/dl Normal [facility] pH measurementOrdered By: Dr Nikhil Dee on 09-16-2022 pH (Unsp spec) 7.39 [pH] 7.35-7.45 [facility] No Panel InformationOrdered By: Dr. Shaw on 09-15-2022 D-Dimer Quantitative (PE/DVT) 0.65 FEU/ug/m 0.27-0.49 [facility] Comment on above: D-Dimer ELEVATED (>0 .49): Additional studies and clinicalassessments are indicated to conclude diagnosis of:Deep Vein Thrombosis (DVT) or Pulmonary Embolism (PE)CRITICAL VALUE VERIFIED. CALLED TO SHELDON CHILEL09/15/22 [facility]al.RESULTS READ BACK BY SAME. Laboratory - Hematology and Cell countson 09-13-2022 HbA1c (Bld) [Mass fraction] 7.1 % [facility] Laboratory - Drug toxicology Ordered By: Dr. Trejo on 07-07-2022 Amphetamines Ql (U) Negative <1000 ng/mL [facility] Benzodiazepines Ql (U) Negative < 200 ng/mL [facility] Cannabinoids Screen Ql (U) Negative < 50 ng/mL [facility] Cocaine Ql (U) Negative < 300 ng/mL [facility] Opiates Ql (U) Positive < 300 ng/mL [facility] No Panel InformationOrdered By: Dr. Trejo on 07-07-2022 MDMA (Ecstasy) Screen Negative < 500 ng/mL [facility] Miscellaneous Test See comment [facility] Comment on above: [id number] 6+OXYCODONE-B UND (ng/mL) DRUG RESULT SCREEN CUTOFF____ [...] 300 Oxymorphone Negative 300 TESTING PERFORMED AT [facility]. ORIGINAL REPORT ON FILE IN LAB CONTAINS ADDITIONAL TEST SITE INFORMATION. Urine Barbiturates Screen Negative < 200 ng/mL [facility] Urine Drug Screen Comment [facility] Comment on above: CONFIRMATORY TESTING [...] Urine Methadone Screen Negative < 300 ng/mL [facility] Urine phencyclidine (PCP) de tectionOrdered By: Dr. Trejo on 07-07-2022 Phencyclidine Ql (U) Negative < 25 ng/mL [facility] 06-23-2022 CNPN Telephone (ORAVON) FLEX WOOTEN ([id number]) 1960 F Date Time Provider Department 06/23/22 NICOLÁS AGGARWAL During your visit today, we recorded the following information about you: Mendy Adams RN 06/23/2022 8:51 AM Signed I left a message for Tessie at [employer] regarding their addendum request. 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] 05/19/2022 Diabetic neuropathy, painful (HCC) [E11.40] 05/19/2022 Acquired valgus deformity of left ankle [M21.07*05/19/2022 Encounter Status:Closed by MENDY ADAMS RN on 06/25/22 Normal [facility] CNOVon 05-19-2022 CNOV Office Visit (ORAVON ) FLEX WOOTEN ([id number]) 1960 F Date Time Provider Department 05/19/22 10:30 AM NICOLÁS AGGARWAL During your visit today, we recorded the following information about you: Nicolás Aggarwal MD 05/19/2022 12:52 PM Signed New Patient Referring Physician: DO Flex Schmidt Warner Wooten is a 62 year old female [...] HISTORY Diagnosis Date DVT (deep venous thrombosis) ([facility]) 2013 post knee replacement Fibromyalgia Hemorrhage of gastrointestinal tract, unspecified Hemorrhage of rectum and anus Internal hemorrhoids without mention of complication Other forms of migraine Other unspecified back disorder Pulmonary embolism ([facility]) 2013 PAST SURGICAL HISTORY Procedure Laterality Date [...] left knee -- meniscus repair; Dr. Weller [facility] SIGMOIDOSCOPY FLX DX W/COLLJ SPEC BR/WA [...] Worsening Previous (more content not included)... Normal [facility] Laboratory - Hematology and Cell countson 05-19-2022 HbA1c (Bld) [Mass fraction] 7.5 % [facility] Work Phone: XR FOOT 3V [...] noted. IMPRESSION: Remote postoperative and degenerative changes. Pattern Painter: PSCJose Transcribe Date/Time: May 19 2022 10:24A Dictated by : ARACELY COATES MD This examination was interpreted and the report reviewed and electronically signed by: ARACELY COATES MD on May 19 2022 10:25AM EST [id number] Normal [facility] XR FOOT GENERAL 3V AP/LAT/OB L LEFTon 05-19-2022 [facility] Absolute lymphocyte counton 01-31-2022 Lymphocytes Auto (Unsp spec) [#/Vol] 0.87 10*3/uL 0.83-4.51 [facility] Work Phone: [phone] Basophil percentageon 2021 Basophil percentage 0 SEEN /hpf [facility] Work Phone: Basophils/100 WBC (Bld) 0.4 % 0-1 [facility] Work Phone: Bilirubin [Mass/Vol] 0.30 mg/dL 0.20-1.00 [facility] Work Phone: Comment on above: For patients on eltr ombopag therapy, use of [employer]ension [place] TBIL is not recommended. Chloride [Moles/Vol] 103 mmol/L 98-107 [facility] Work Phone: Eosinophils/100 WBC (Bld) 0.0 % 0-5 [facility] Work Phone: Glucose [Mass/Vol] 545 mg/dL 74-106 [facility] Work Phone: Comment on above: Critical Result(s) C alled at: 00:43:30 01/31/2022 by: PERRY IGLESIAS TO RICA STEPHEN. Results read back by same.Glucose result greater than or equal to 200 mg/dLsuggests DIABETES MELLITUS per A.D.A. criteria. Neutrophils (Bld) [#/Vol] 7.0 10*3/uL 2.0-7.7 [facility] Work Phone: Neutrophils/100 WBC (Bld) 78.6 % 47-70 [facility] Work Phone: Potassium [Moles/Vol] 4.6 mmol/L 3.5-5.1 [facility] Work Phone: Comment on above: Moderate Hemolysis, Result may be falsely increased. Protein [Mass/Vol] 7.4 g/dL 6.4-8.2 [facility] Work Phone: Sodium [Moles/Vol] 135 mmol/L 136-145 [facility] Work Phone: WBC (Bld) [#/Vol] 8.9 10*3/uL 4.4-11.0 [facility] Work Phone: Bilirubin Test strip Ql (U)o n 01-31-2022 Bilirubin Ql (U) Negative Negative [facility] Work Phone: Blood erythrocytes count (nu mber/volume)on 01-31-2022 RBC (Bld) [#/Vol] 4.98 10*6/uL 4.2-5.4 [facility] Work Phone: Blood hemoglobin measurement (mass/volume)on 01-31-2022 Hemoglobin (Bld) [Mass/Vol] 13.5 g/dL 12.0-15.0 [facility] Work Phone: Blood lymphocytes/100 leukoc yteson 01-31-2022 Lymphocytes/100 WBC (Bld) 9.8 % 19-41 [facility] Work Phone: Blood monocytes/100 leukocyt eson 01-31-2022 Monocytes/100 WBC (Bld) 6.4 % 0-10 [facility] Work Phone: Blood platelet mean volumeon 01-31-2022 Platelet mean volume (Bld) [Entitic vol] 9.6 fL 6.2-12.0 [facility] Work Phone: Determination of erythrocyte mean corpuscular volume (MCV)on 01-31-2022 MCV (RBC) [Entitic vol] 85.7 fL 81-99 [facility] Work Phone: Glucose Glucometer (BldC) [M ass/Vol]on 01-31-2022 Glucose [Mass/Vol] 399 mg/dL 74-106 [facility] Work Phone: Comment on above: MANAGEMENT OF PATIEN T CARE PER NURSING PROTOCOL HCO3 (BldA) [Moles/Vol]on HCO3 (Bld) [Moles/Vol] 25 mmol/L 22-[address] [facility] Work Phone: Hematocrit Auto (Bld) [Volum e fraction]on 01-31-2022 Hematocrit (Bld) [Volume fraction] 42.7 % 37-47 [facility] Work Phone: Ketones Test strip Ql (U)on 01-31-2022 Ketones Ql (U) Negative Negative [facility] Work Phone: Laboratory - Chemistry and C hemistry - challengeon 01-31-2022 CO2 [Moles/Vol] 26 mmol/L 23-33 [facility] Work Phone: ALP [Catalytic activity/Vol] 89 U/L 45-117 [facility] Work Phone: [phone] ALT [Catalytic activity/Vol] 44 U/L 13-56 [facility] Work Phone: CO2 [Moles/Vol] 26.0 mmol/L 21.0-32.0 [facility] Work Phone: Globulin (S) [Mass/Vol] 4.0 g/dL 2.2-4.2 [facility] Work Phone: Urea nitrogen/Creatinine [Mass ratio] 24.0 mg/mg 10-20 [facility] Work Phone: Laboratory - Hematology and Cell countson 01-31-2022 Erythrocyte distribution width (RBC) [Entitic vol] 46.8 fL 35.1-43.9 [facility] Work Phone: Erythrocyte distribution width (RBC) [Ratio] 14.9 % 11.6-14.6 [facility] Work Phone: Immature granulocytes/100 WBC (Bld) 4.800 % 0.0-0.9 [facility] Work Phone: Comment on above: IG% - Immature Granu locytes (promyelocytes, myelocytes and metamyelocytes) > 1% indicates that a LEFT SHIFT is Present. MCH (RBC) [Entitic mass] 27.1 pg 27.0-32.0 [facility] Work Phone: Nucleated RBC/100 WBC (Bld) [Ratio] 0 % 0-5 [facility] Work Phone: MCHC Auto (RBC) [Mass/Vol]on 01-31-2022 MCHC (RBC) [Mass/Vol] 31.6 g/dL 32-36 [facility] Work Phone: Mucus LM Ql (Urine sed)on Mucus Ql (Urine sed) 0 SEEN /hpf [facility] Work Phone: Nitrite Test strip Ql (U)on 01-31-2022 Nitrite Ql (U) Negative Negative [facility] Work Phone: No Panel Informationon 01-31 Bed Mix Venous Bld PCO2 at Pat Temp 43.6 mmHg 41-51 [facility] Work Phone: Blood Gas Specimen Type REJI [facility] Work Phone: Venous Blood Base Excess -1 mmol/L -1.0-3.5 [facility] Work Phone: Estimated Creatinine Clearance Calc 39.78 ml/min [facility] Work Phone: Estimated GFR (MDRD) Amer 56 mL/min >60 [facility] Work Phone: Comment on above: GFR Calc Estimated GFR (MDRD) Non-Af Amer 46 mL/min >60 [facility] Work Phone: Comment on above: Non- GFR Calc PO2 venouson 01-31-2022 Oxygen (BldV) [Partial pressure] 42 mm[Hg] 25-40 [facility] Work Phone: Platelets bldon 01-31-2022 Platelets (Bld) [#/Vol] 317 10*3/uL 150-450 [facility] Work Phone: Protein Test strip Ql (U)on 01-31-2022 Protein Ql (U) Negative Negative [facility] Work Phone: Serum or plasma acetone dread urement (mass/volume)on 01-31-2022 Acetone [Mass/Vol] Negative NEG [facility] Work Phone: Serum or plasma albumin dread urement (mass/volume)on 01-31-2022 Albumin [Mass/Vol] 3.4 g/dL 3.2-5.0 [facility] Work Phone: Serum or plasma albumin/glob ulin mass ratioon 01-31-2022 Albumin/Globulin [Mass ratio] 0.8 {ratio} 0.9-2.4 [facility] Work Phone: Serum or plasma calcium dread urement (mass/volume)on 01-31-2022 Calcium [Mass/Vol] 8.7 mg/dL 8.5-10.1 [facility] Work Phone: Serum or plasma creatinine m easurement (mass/volume)on 01-31-2022 Creatinine [Mass/Vol] 1.25 mg/dL 0.55-1.02 [facility] Work Phone: Comment on above: The validity of the calculated GFR & GFRAA in patients over 70 years has not been determined. Clinical correlation is essential. Serum or plasma urea nitroge n measurement (mass/volume)on 01-31-2022 Urea nitrogen [Mass/Vol] 30 mg/dL 7-18 [facility] Work Phone: Squamous epithelial cells de tection in urine sediment by light microscopyon 01-31-2022 Epithelial cells.squamous LM Ql (Urine sed) 0 SEEN /hpf [facility] Work Phone: Thin prep Papanicolaou smear with manual screeningon 01-31-2022 Thin prep Papanicolaou smear with manual screening 20 U/L 15-37 [facility] Work Phone: Comment on above: Moderate Hemolysis, Result may be falsely increased. Thin prep Papanicolaou smear with manual screening 6 5-15 [facility] Work Phone: Urine blood detectionon RBC Ql (U) Negative Negative [facility] Work Phone: RBC Ql (U) 0 SEEN /hpf [facility] Work Phone: Urine clarityon 01-31-2022 Clarity (U) Clear Clear [facility] Work Phone: Urine color determinationon 01-31-2022 Color (U) Straw Yellow [facility] Work Phone: Urine glucose detectionon Glucose Ql (U) 1000 mg/dl Normal [facility] Work Phone: Urine leukocyte esterase det ection by dipstickon 01-31-2022 Leukocyte esterase Test strip Ql (U) Negative Negative [facility] Work Phone: Urine pHon 01-31-2022 pH (U) 6.0 [pH] [facility] Work Phone: Urine sediment bacteria coun t by microscopy (number/high power field)on 01-31-2022 Bacteria LM.HPF (Urine sed) [#/Area] 0 /[HPF] None Seen [facility] Work Phone: Urine specific gravity measu rementon 01-31-2022 Specific gravity (U) [Rel density] 1.015 [facility] Work Phone: Urobilinogen Auto test strip Ql (U)on 01-31-2022 Urobilinogen Ql (U) Normal mg/dl Normal [facility] Work Phone: Vital signson 01-31-2022 Oxygen saturation in Blood 76 % 50-70 [facility] Work Phone: pH measurementon 01-31-2022 pH (Unsp spec) 7.36 [pH] 7.32-7.42 [facility] Work Phone: Absolute lymphocyte counton 01-25-2022 Lymphocytes Auto (Unsp spec) [#/Vol] 1.06 10*3/uL 0.83-4.51 [facility] Work Phone: Basophil percentageon 05-30- 2022 Basophils/100 WBC (Bld) 0.7 % 0-1 [facility] Work Phone: [phone] Chloride [Moles/Vol] 104 mmol/L 98-107 [facility] Work Phone: [phone] Eosinophils/100 WBC (Bld) 2.9 % 0-5 [facility] Work Phone: [phone] Glucose [Mass/Vol] 166 mg/dL 74-106 [facility] Work Phone: [phone] Comment on above: Fasting Glucose resu lt greater than or equal to 126 mg/dL suggests DIABETES MELLITUS per A.D.A. criteria. Neutrophils (Bld) [#/Vol] 4.2 10*3/uL 2.0-7.7 [facility] Work Phone: [phone] Neutrophils/100 WBC (Bld) 68.9 % 47-70 [facility] Work Phone: [phone] Potassium [Moles/Vol] 4.1 mmol/L 3.5-5.1 [facility] Work Phone: [phone] Sodium [Moles/Vol] 139 mmol/L 136-145 [facility] Work Phone: [phone] WBC (Bld) [#/Vol] 6.1 10*3/uL 4.4-11.0 [facility] Work Phone: Blood erythrocytes count (nu mber/volume)on 01-25-2022 RBC (Bld) [#/Vol] 4.60 10*6/uL 4.2-5.4 [facility] Work Phone: [phone] Blood hemoglobin measurement (mass/volume)on 01-25-2022 Hemoglobin (Bld) [Mass/Vol] 12.3 g/dL 12.0-15.0 [facility] Work Phone: [phone] Blood lymphocytes/100 leukoc yteson 01-25-2022 Lymphocytes/100 WBC (Bld) 17.3 % 19-41 [facility] Work Phone: [phone] Blood monocytes/100 leukocyt eson 01-25-2022 Monocytes/100 WBC (Bld) 9.9 % 0-10 [facility] Work Phone: Blood platelet mean volumeon 01-25-2022 Platelet mean volume (Bld) [Entitic vol] 9.2 fL 6.2-12.0 [facility] Work Phone: Determination of erythrocyte mean corpuscular volume (MCV)on 01-25-2022 MCV (RBC) [Entitic vol] 87.8 fL 81-99 [facility] Work Phone: Hematocrit Auto (Bld) [Volum e fraction]on 01-25-2022 Hematocrit (Bld) [Volume fraction] 40.4 % 37-47 [facility] Work Phone: Laboratory - Chemistry and C hemistry - challengeon 01-25-2022 CO2 [Moles/Vol] 31.0 mmol/L 21.0-32.0 [facility] Work Phone: Urea nitrogen/Creatinine [Mass ratio] 11.1 mg/mg 10-20 [facility] Work Phone: Laboratory - Hematology and Cell countson 01-25-2022 Erythrocyte distribution width (RBC) [Entitic vol] 50.0 fL 35.1-43.9 [facility] Work Phone: Erythrocyte distribution width (RBC) [Ratio] 15.7 % 11.6-14.6 [facility] Work Phone: Immature granulocytes/100 WBC (Bld) 0.300 % 0.0-0.9 [facility] Work Phone: Comment on above: IG% - Immature Granu locytes (promyelocytes, myelocytes and metamyelocytes) > 1% indicates that a LEFT SHIFT is Present. MCH (RBC) [Entitic mass] 26.7 pg 27.0-32.0 [facility] Work Phone: Nucleated RBC/100 WBC (Bld) [Ratio] 0 % 0-5 [facility] Work Phone: MCHC Auto (RBC) [Mass/Vol]on 01-25-2022 MCHC (RBC) [Mass/Vol] 30.4 g/dL 32-36 [facility] Work Phone: No Panel Informationon 01-25 D-Dimer Quantitative (PE/DVT) 0.85 FEU/ug/m 0.27-0.49 [facility] Work Phone: Comment on above: RESULTS CALLED TO LAVINIA RODÍRGUEZ RN 01/25/22 1356 Rubina Chairez.REPORT READ BACK BY SAME.D-Dimer ELEVATED (>0.49): Additional studies and clinicalassessments are indicated to conclude diagnosis of:Deep Vein Thrombosis (DVT) or Pulmonary Embolism (PE) Estimated Creatinine Clearance Calc 61.39 ml/min [facility] Work Phone: Estimated GFR (MDRD) Amer 91 mL/min >60 [facility] Work Phone: Comment on above: GFR Calc Estimated GFR (MDRD) Non-Af Amer 75 mL/min >60 [facility] Work Phone: Comment on above: Non- GFR Calc Troponin I High Sensitivity < 3 pg/mL 3.0-54.0 [facility] Work Phone: Comment on above: Please Note: New Selene t Units and Gender Specific Reference Ranges. For more information see Policy Stat Procedure [place] High Sensitivity Troponin (TNIH) and attachments. SARS-CoV-2 & FLU Antigen (Rapid) SARS-CoV-2 (COVID 19) [facility] Work Phone: Platelets bldon 01-25-2022 Platelets (Bld) [#/Vol] 181 10*3/uL 150-450 [facility] Work Phone: Serum or plasma calcium dread urement (mass/volume)on 01-25-2022 Calcium [Mass/Vol] 8.5 mg/dL 8.5-10.1 [facility] Work Phone: Serum or plasma creatinine m easurement (mass/volume)on 01-25-2022 Creatinine [Mass/Vol] 0.81 mg/dL 0.55-1.02 [facility] Work Phone: Comment on above: The validity of the calculated GFR & GFRAA in patients over 70 years has not been determined. Clinical correlation is essential. Serum or plasma urea nitroge n measurement (mass/volume)on 01-25-2022 Urea nitrogen [Mass/Vol] 9 mg/dL 7-18 [facility] Work Phone: Thin prep Papanicolaou smear with manual screeningon 01-25-2022 Thin prep Papanicolaou smear with manual screening 4 5-15 [facility] Work Phone: Culture, urineon 11-12-2021 Bacteria identified Cx Nom (U) Presumptive Lactobacillus sp. [facility] Work Phone: Absolute lymphocyte counton 11-10-2021 Lymphocytes Auto (Unsp spec) [#/Vol] 1.61 10*3/uL 0.83-4.51 [facility] Work Phone: Basophil percentageon 2021 Basophils/100 WBC (Bld) 0.7 % 0-1 [facility] Work Phone: Chloride [Moles/Vol] 102 mmol/L 98-107 [facility] Work Phone: Eosinophils/100 WBC (Bld) 3.1 % 0-5 [facility] Work Phone: Glucose [Mass/Vol] 281 mg/dL 74-106 [facility] Work Phone: Comment on above: Glucose result great er than or equal to 200 mg/dLsuggests DIABETES MELLITUS per A.D.A. criteria. Neutrophils (Bld) [#/Vol] 3.7 10*3/uL 2.0-7.7 [facility] Work Phone: Neutrophils/100 WBC (Bld) 60.3 % 47-70 [facility] Work Phone: Potassium [Moles/Vol] 4.1 mmol/L 3.5-5.1 [facility] Work Phone: Sodium [Moles/Vol] 138 mmol/L 136-145 [facility] Work Phone: WBC (Bld) [#/Vol] 6.1 10*3/uL 4.4-11.0 [facility] Work Phone: Blood erythrocytes count (nu mber/volume)on 11-10-2021 RBC (Bld) [#/Vol] 4.46 10*6/uL [facility].2[facility]: Blood hemoglobin measurement (mass/volume)on 11-10-2021 Hemoglobin (Bld) [Mass/Vol] 11.8 g/dL 12.0-15.0 [facility] Work Phone: Blood lymphocytes/100 leukoc yteson 11-10-2021 Lymphocytes/100 WBC (Bld) 26.3 % 19-41 [facility] Work Phone: Blood monocytes/100 leukocyt eson 11-10-2021 Monocytes/100 WBC (Bld) 9.1 % 0-10 [facility] Work Phone: Blood platelet mean volumeon 11-10-2021 Platelet mean volume (Bld) [Entitic vol] 9.2 fL 6.2-12.0 [facility] Work Phone: Determination of erythrocyte mean corpuscular volume (MCV)on 11-10-2021 MCV (RBC) [Entitic vol] 83.9 fL 81-99 [facility] Work Phone: Hematocrit Auto (Bld) [Volum e fraction]on 11-10-2021 Hematocrit (Bld) [Volume fraction] 37.4 % 37-47 [facility] Work Phone: Laboratory - Chemistry and C hemistry - challengeon 11-10-2021 Magnesium [Mass/Vol] 1.7 mg/dL 1.6-2.6 [facility] Work Phone: CO2 [Moles/Vol] 30.0 mmol/L 21.0-32.0 [facility] Work Phone: Urea nitrogen/Creatinine [Mass ratio] 14.9 mg/mg 10-20 [facility] Work Phone: Laboratory - Hematology and Cell countson 11-10-2021 Erythrocyte distribution width (RBC) [Entitic vol] 50.7 fL 35.1-43.9 [facility] Work Phone: Erythrocyte distribution width (RBC) [Ratio] 16.8 % 11.6-14.6 [facility] Work Phone: Immature granulocytes/100 WBC (Bld) 0.500 % 0.0-0.9 [facility] Work Phone: Comment on above: IG% - Immature Granu locytes (promyelocytes, myelocytes and metamyelocytes) > 1% indicates that a LEFT SHIFT is Present. MCH (RBC) [Entitic mass] 26.5 pg 27.0-32.0 [facility] Work Phone: Nucleated RBC/100 WBC (Bld) [Ratio] 0 % 0-5 [facility] Work Phone: MCHC Auto (RBC) [Mass/Vol]on 11-10-2021 MCHC (RBC) [Mass/Vol] 31.6 g/dL 32-36 [facility] Work Phone: No Panel Informationon 11-10 Thyroid Stimulating Hormone (TSH) 3.14 uIU/mL 0.358-3.74 [facility] Work Phone: Estimated GFR (MDRD) Amer 71 mL/min >60 [facility] Work Phone: Comment on above: GFR Calc Estimated GFR (MDRD) Non-Af Amer 59 mL/min >60 [facility] Work Phone: Comment on above: Non- GFR Calc Nasal Screen MRSA/MSSA [facility] Work Phone: Platelets bldon 11-10-2021 Platelets (Bld) [#/Vol] 261 10*3/uL 150-450 [facility] Work Phone: Serum or plasma albumin dread urement (mass/volume)on 11-10-2021 Albumin [Mass/Vol] 3.4 g/dL 3.2-5.0 [facility] Work Phone: Serum or plasma calcium dread urement (mass/volume)on 11-10-2021 Calcium [Mass/Vol] 9.1 mg/dL 8.5-10.1 [facility] Work Phone: Serum or plasma creatinine m easurement (mass/volume)on 11-10-2021 Creatinine [Mass/Vol] 1.01 mg/dL 0.55-1.02 [facility] Work Phone: Comment on above: The validity of the calculated GFR & GFRAA in patients over 70 years has not been determined. Clinical correlation is essential. Serum or plasma urea nitroge n measurement (mass/volume)on 11-10-2021 Urea nitrogen [Mass/Vol] 15 mg/dL 7-18 [facility] Work Phone: Thin prep Papanicolaou smear with manual screeningon 11-10-2021 Thin prep Papanicolaou smear with manual screening 6 5-15 [facility] Work Phone: Whole blood hemoglobin A1c/t otal hemoglobin ratio (mass fraction)on 11-10-2021 HbA1c (Bld) [Mass fraction] 8.0 % 3.8-5.6 [facility] Work Phone: Comment on above: Normal < 5.7 % Predi abetic 5.7 - 6.4 % Diabetic >or= 6.5 % Please note range changes. Glucose Glucometer (BldC) [M ass/Vol]on 09-25-2021 Glucose [Mass/Vol] 136 mg/dL 70-110 [facility] Work Phone: Comment on above: MANAGEMENT OF PATIEN T CARE PER NURSING PROTOCOL Basophil percentageon 2020 WBC (Bld) [#/Vol] 7.1 10*3/uL 4.4-11.0 [facility] Work Phone: Blood erythrocytes count (nu mber/volume)on 08-07-2021 RBC (Bld) [#/Vol] 4.56 10*6/uL 4.2-5.[facility] Work [facility]: Blood hemoglobin measurement (mass/volume)on 08-07-2021 Hemoglobin (Bld) [Mass/Vol] 12.0 g/dL 12.0-15.0 [facility] Work Phone: Blood platelet mean volumeon 08-07-2021 Platelet mean volume (Bld) [Entitic vol] 9.9 fL 6.2-12.0 [facility] Work Phone: Determination of erythrocyte mean corpuscular volume (MCV)on 08-07-2021 MCV (RBC) [Entitic vol] 86.8 fL 81-99 [facility] Work Phone: Hematocrit Auto (Bld) [Volum e fraction]on 08-07-2021 Hematocrit (Bld) [Volume fraction] 39.6 % 37-47 [facility] Work Phone: Laboratory - Hematology and Cell countson 08-07-2021 Erythrocyte distribution width (RBC) [Entitic vol] 47.4 fL 35.1-43.9 [facility] Work Phone: Erythrocyte distribution width (RBC) [Ratio] 15.2 % 11.6-14.6 [facility] Work Phone: MCH (RBC) [Entitic mass] 26.3 pg 27.0-32.0 [facility] Work Phone: MCHC Auto (RBC) [Mass/Vol]on 08-07-2021 MCHC (RBC) [Mass/Vol] 30.3 g/dL 32-36 [facility]: Platelets bldon 08-07-2021 Platelets (Bld) [#/Vol] 291 10*3/uL 150-450 [facility] Work Phone: Provider Note - [...] made to minimize errors. Minor errors in transcription coordinator may be present. Please call if questions.. [...] From Triage - ED 21-May-2021 20:35 Normal [facility] Venous Duplex Ultra sound DVTon 05-22-2021 [facility] [place]ous [place] [address] [phone], Vascular Lab Report Lower Venous Duplex Ultrasound Patient Name: FLEX Hernández Physician: [id number] Hector Vegas MD Study Date: 05/22/2021 Referring Physician: [id number] SILVANA HENDERSON MRN/PID: [id number] PCP: Accession/Order#: [id number] CC Report to: Date of : 1960 Technologist: Gladis Campbell RVT Gender: F Technologist 2: Admission Status: Outpatient Location Performed: [facility] Diagnosis/ICD: M79.605-Pain in left leg; M79.89-Left leg swelling Procedure/CPT: 21089 Peripheral venous duplex scan for DVT [id number] Pertinent History: Leg pain and LE Edema. [...] Spontaneous/Phasic Peroneal Yes None PTV Yes None [id number] Hector Vegas MD Final Normal [facility] Triage - EDon 05-21-2021 Triage - ED [...] obeys commands Best Verbal Response: (V5) oriented Proctor Score: 15 Allergies: yes Patient has homicidal [...] 21-May-2021 20:40 by Demetrio Cerda (RN) Normal [facility] BASIC METABOLIC PANELon 06- Anion gap [Moles/Vol] 13 mmol/L Normal 10 - 20 [facility] Comment on above: Performed By: #### B MP #### [address] [address] Calcium [Mass/Vol] 9.4 mg/dL Normal 8.6 - 10.3 [facility] Comment on above: Performed By: #### B MP #### [address] [address] Chloride [Moles/Vol] 96 mmol/L Low 98 - 107 [facility] Comment on above: Performed By: #### B MP #### [address] [address] Creatinine [Mass/Vol] 0.92 mg/dL Normal 0.50 - 1.05 [facility] Comment on above: Performed By: #### B MP #### [address] [address] GFR- AM. >60 Normal >[address] [facility] Comment on above: Result Comment: CALC ULATIONS OF ESTIMATED GFR ARE PERFORMED USING THE MDRD STUDY EQUATION FOR THE IDMS-TRACEABLE CREATININE METHODS. CLIN CHEM 2007;53:766-72 Performed By: #### B MP #### [address] [address] GFR-NON AM. >60 Normal >60 [facility] Comment on above: Performed By: #### B MP #### [address] [address] Glucose [Mass/Vol] 342 mg/dL High 74 - 99 [facility] Comment on above: Performed By: #### B MP #### [address] [address] HCO3 (Bld) [Moles/Vol] 28 mmol/L Normal 21 - 32 [facility] Comment on above: Performed By: #### B MP #### [address] [address] Potassium [Moles/Vol] 4.8 mmol/L Normal 3.5 - 5.3 [facility] Comment on above: Performed By: #### B MP #### [address] [address] Sodium [Moles/Vol] 132 mmol/L Low 136 - 145 [facility] Comment on above: Performed By: #### B MP #### [address] [address] Urea nitrogen [Mass/Vol] 18 mg/dL Normal 6 - [address] [facility] Comment on above: Performed By: #### B MP #### [address] [address] GLUCOSE-POCTon 02-13-2021 Glucose [Mass/Vol] 332 mg/dL High 74 - 99 [facility] Comment on above: Performed By: #### G TAYE #### [address] [address] Provider Note - ED v2on 01-27 Provider [...] Alert and oriented x4, GCS 15 , scrap bunch maker II-XII grossly intact. 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 No meds captain cannery tender . Patient does not know meds she [...] SIGNS: T PRBP SpO2O2(LPM) %FiO2 Method 13-Feb-2021 03:12:[id number]/73 92 room air, no respiratory support 13-Feb-2021 01:16:[id number]/59 92 room air, no respiratory support 13-Feb-2021 00:01:[id number]/76 95 room air, no respiratory support MEDICAL [...] From Triage - ED 13-Feb-2021 00:01 Normal [facility] Risk Screen - Adult Emergenc yon 02-13-2021 [...] instruction; written material Cultural Considerationsnone Developmental Considerationsnone Religion Considerationsnone Learning Assessment (Other Learner): Learning Assessment (Other Learner): Other learner availableno Pressure Injury/TB/Substance: Pressure Injury: Do you have a coughno Substance Use Current or Former Historynever: Cigarette/Tobacco, e-Cigarette/Vaping, Alcohol, Street Drugs Admission Risk Screen: Significant IndicatorsComplete CAGE: CAGE: Is this an injured patient at a Trauma Center ([facility]/[place] a/[place]): no Electronic Signatures: Tigist Yoder (RN) (Signed 13-Feb-2021 00:07) Authored: Preferred Language, Advanced Directives, Family Violence Adult, Learning Assessment (Patient), Learning Assessment (Other Learner), Pressure Injury/TB/Substance, Pressure Injury, CAGE Last Updated: 13-Feb-2021 00:07 by Tigist Yoder (SAM) Normal [facility] Triage - EDon 02-13-2021 Triage - ED Chart Review: ARRIVAL INFORMATION Mode of Arrival: private vehicle CHIEF COMPLAINT FLEX TABARES is a Female patient with a chief complaint of hyperglycemia (Patient states, My sugar has been up the past 4-5 days. It's so high my meter wont register. I had a steroid shot today around 2pm. No meds captain cannery tender . 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 BS at 6pm: 399, 7:30pm: HI, 8:30PM: HI, 9:15pm: 492, 1010pm: 409. In triage: 332). Triage Date/Time: 13-Feb-2021 00:01 ROSALBA: 3V Vital Signs: Temperature: 97.3F ( 36.2C) taken oral Blood Pressure: 125/76 Mean: Heart Rate: 64 Respiratory Rate: 18 Pulse Oximetry: 95% on room air, no respiratory support. Proctor Coma Scale: Best Eye Response: (E4) spontaneous [...] Last Updated: 13-Feb-2021 00:06 by Tigist Yoder) Formerly [facility] OPERATIVE PROCEDURESon 02-10 OPERATIVE PROCEDURES [facility] OPERATIVE REPORT NAME ACCOUNT SEX AGE ADMIT DISCHARGE PT MED. RECORD# NUMBER DATE DATE TYPE FLEX WOOTEN [id number] F 59 02/08/20 02/08/20 2 E. [id number] ROOM: [facility] DATE OF : 1960 DICTATING PHYSICIAN: Pb Drummond DATE OF SURGERY: February 08, 2020 SURGEON: Pb Drummond MD SAFETY TECH: None. ANESTHESIOLOGIST: Daphney Velasquez MD ANESTHETIC: Local [...] Pb Drummond MD 02/08/20 13:43 JOB #: [id number] Transcribed By: yogesh 02/09/20 07:13 Electronically signed by: E-SIGN DR. PB DRUMMOND M.D. 02/11/20 09:08 Page 2 of 2 FLEX WOOTEN. Operative Report Normal [facility] CNOVon 05-09-2019 CNOV Office Visit ([facility]HBATH ) FLEX WOOTEN ([id number]) 1960 F Date Time Provider Department 05/09/19 [...] for [address] Musa at [facility]. Takes oxycodone 2 times daily. Left [...] Diagnosis Date - DVT (deep venous thrombosis) ([facility]) 2013 post knee replacement - Fibromyalgia - Hemorrhage of gastrointestinal tract, unspecified - Hemorrhage of rectum and anus - Internal hemorrhoids without mention of complication - Other forms of migraine - Other unspecified back disorder - Pulmonary embolism ([facility]) 2013 PAST SURGICAL HISTORY Procedure Laterality Date [...] AJ 1:160, CK 272 Negative aside DNA, TELEPHONE SERVICE REPRESENTATIVE, SSA, SSB, rheumatoid factor, CCP, Acevedo Low [...] Jackie Rojas MD Referring Provider: JACKIE ROJAS [[id number]] Allergies As of Date: 05/09/2019 Noted Allergy [...] Status:Closed by JACKIE ROJAS MD on 05/09/19 [facility] PROGRESSon 05-09-2019 PROGRESS HNO ID: [id number] Author: Jackie Rojas Service: ? Author Type: [...] for [address] Musa at [facility]. Takes oxycodone 2 times daily. Left [...] Diagnosis Date - DVT (deep venous thrombosis) ([facility]) 2013 post knee replacement - Fibromyalgia - Hemorrhage of gastrointestinal tract, unspecified - Hemorrhage of rectum and anus - Internal hemorrhoids without mention of complication - Other forms of migraine - Other unspecified back disorder - Pulmonary embolism ([facility]) 2013 PAST SURGICAL HISTORY Procedure Laterality Date - COLONOSCOP W/ OR W/O [facility] [[email or web address]] SPEC 2002 Colonoscopy - INTRATHECAL BLOCK - [...] AJ 1:160, CK 272 Negative aside DNA, TELEPHONE SERVICE REPRESENTATIVE, SSA, SSB, rheumatoid factor, CCP, Acevedo Low [...] fail to improve. Jackie Rojas MD Normal [facility] AJ by IFA Screenon 04-12-20 AJ by IFA Screen SEE BELOW Normal [facility] Comment on above: Result Comment: AJ Positive AB NEGAT Normal range : negative at <1:80 serum dilution. AJ Titer 1:160 AB NEGAT AJ Pattern Homogeneous Performing Laboratory: [facility] [employer] [place] [address] Performed By: #### R F1 #### [place] [address] CCP Antibody, IgGon 04-12-20 19 CCP Antibody, IgG <15 Normal <20 [facility] Comment on above: Result Comment: < 20 units: Negative 20-39 units: Weak Positive 40-59 units: Moderate Positive > 60 units: Strong Positive The following results were obtained with the [employer] QUANTA Lite CCP3 IgG VENESSA. Anti-CCP values obtained with different manufacturers' assay methods may not be used interchangeably. The magnitude of the reported IgG levels cannot be correlated to an endpoint titer. Performing Laboratory: [facility] [employer] [address] [address] Performed By: #### R F1 #### [address] [address] DS-DNA Abon 04-12-2019 DS-DNA Ab SEE BELOW Normal [facility] Comment on above: Result Comment: DNA Antibody w/ Conf. <12 <30 IU/mL Negative for ds DNA Antibodies Negative: <30 IU/mL Equivocal: 30-74 IU/mL Positive: >74 IU/mL Performing Laboratory: [facility] [place] [address] Performed By: #### R F1 #### [facility] [address] [place] [id number] TELEPHONE SERVICE REPRESENTATIVE Antibodyon 04-12-2019 TELEPHONE SERVICE REPRESENTATIVE Antibody <0.2 Normal <1.0 [facility] Comment on above: Result Comment: Nega tive Negative: <1.0 AI Positive: >0.9 AI Performing Laboratory: [facility] [address] [place] [address] Performed By: #### R F1 #### [facility] [address] [place] [address] Sjogren Antibodieson 019 Sjogren Antibodies SEE BELOW Normal [facility] Comment on above: Result Comment: SSA Antibody <0.2 <1.0 AI Negative Negative: <1.0 AI Positive: >0.9 AI SSB Antibody <0.2 <1.0 AI Negative Negative: <1.0 AI Positive: >0.9 AI Performing Laboratory: [facility] [address] [place] [address] Performed By: #### R F1 #### [facility] [address] [place] [address] Acevedo Abs IgGon 04-12-2019 Acevedo Abs IgG SEE BELOW Normal [facility] Comment on above: Result Comment: Sm A ntibody <0.2 <1.0 AI Negative Negative: <1.0 AI Positive: >0.9 AI Performing Laboratory: [facility] [address] [place] [address] Performed By: #### R F1 #### [facility] [address] [place] [address] Total 25-OH Vitamin Don 03-29 Total 25-OH Vitamin D 31.3 ng/mL Normal 30.0-100.0 [facility] Comment on above: Performed By: #### R F1 #### [facility] [address] [place] [id number] CNOVon 04-09-2019 CNOV Office Visit (RHBATH ) FLEX WOOTEN ([id number]) 1960 F Date Time Provider Department 04/09/19 [...] for [address] Musa at [facility]. Takes oxycodone 2 times daily. Left [...] Diagnosis Date - DVT (deep venous thrombosis) ([facility]) 2013 post knee replacement - Fibromyalgia - Hemorrhage of gastrointestinal tract, unspecified - Hemorrhage of rectum and anus - Internal hemorrhoids without mention of complication - Other forms of migraine - Other unspecified back disorder - Pulmonary embolism ([facility]) 2014 PAST SURGICAL HISTORY Procedure Laterality Date - COLONOSCOP W/ OR W/O [facility] [[email or web address]] SPEC 2002 Colonoscopy - INTRATHECAL BLOCK - [...] file Gets together: Not on file Attends mormon service: Not on file Active member of [...] SCREEN - DNA ANTIBODY DS BLD - TELEPHONE SERVICE REPRESENTATIVE ANTIBODY BLOOD - ACEVEDO IGG AB - [...] Jackie Rojas MD Referring Provider: RICA PADGETT [[id number]] Allergies As of Date: 04/09/2019 Noted Allergy [...] Order(s):AJ BY IFA SCREEN [SQANAIFS] Order #: [id number] FUTURE DNA ANTIBODY DS BLD [SQDNAAB] Order #: [id number] FUTURE TELEPHONE SERVICE REPRESENTATIVE ANTIBODY BLOOD [SQARNP] Order #: [id number] FUTURE ACEVEDO IGG AB [SQSMAB] Order #: [id number] FUTURE SJOGREN ABS SSA/SSB [SQXSSAB] Order #: [id number] FUTURE RHEUMATOID FACTOR BL [SQRF] Order #: [id number] FUTURE CCP ANTIBODY IGG [SQCCP] Order #: [id number] FUTURE CK CREATINE KINASE [SQCK] Order #: [id number] FUTURE VITAMIN D 25 HYDROXY [SQVITD] Order #: [id number] FUTURE FERRITIN BLD [SQFERR] Order #: [id number] FUTURE IRON + TIBC [SQIRON] Order #: [id number] FUTURE UA WITH CULTURE IF INDICATED [SQUACII] Order #: [id number] FUTURE CREATININE RANDOM UR [SQUCRR] Order #: [id number] FUTURE PROTEIN RANDOM UR [SQUTPR] Order #: [id number] FUTURE CBC + DIFF [SQCBCDIF] Order #: [id number] FUTURE COMP METABOLIC PANEL [SQCMP] Order #: [id number] FUTURE XR HAND GENERAL 3V PA/LAT/OBL LT [[id number]] Order #: [id number] FUTURE XR HAND GENERAL 3V PA/LAT/OBL RT [[id number]] Order #: [id number] FUTURE XR FOOT GENERAL 3V AP/LAT/OBL LT [[id number]] Order #: [id number] FUTURE XR FOOT GENERAL 3V AP/LAT/OBL RT [[id number]] Order #: [id number] FUTURE XR SACROILIAC JOINTS 2V AP PELVIS/FERGUESON [[id number]] Order #: [id number] FUTURE XR LUMBAR LIMITED 2V AP/LAT [[id number]] Order #: [id number] FUTURE Prescriptions as of 04/09/2019 Sig: ATENOLOL [...] Follow-up and Disposition History Recorded Questionnaire: [facility] YEARLY ADL ASSESSMENT Toileting -> Independent Bathing -> Independent Upper Body Dressing -> Independent Lower Body Dressing -> Independent Grooming/Hygiene -> Independent Self Feeding -> Independent Home Management (laundry/cleaning/chore s/simple meal prep) -> Independent Encounter Status:Closed by JACKIE ROJAS MD on 04/09/19 Normal [facility] CPKon 04-09-2019 CK [Catalytic activity/Vol] 272 U/L High 26-192 [facility] Comment on above: Performed By: #### C K #### [facility] [address] [place], [place] [address] Comprehensive Panelon 2018 ALP [Catalytic activity/Vol] 87 U/L Normal 45-117 [facility] Comment on above: Performed By: #### P 14 #### [facility] [address] [place], [place] [address] Bilirubin [Mass/Vol] 0.2 mg/dL Normal 0.2-1.0 [facility] Comment on above: Performed By: #### P 14 #### [address] [address] Protein [Mass/Vol] 7.0 g/dL Normal 6.4-8.2 [facility] Comment on above: Performed By: #### P 14 #### [facility] [address] [place], [place] [address] ALT [Catalytic activity/Vol] 43 U/L Normal 12-78 [facility] Comment on above: Performed By: #### P 14 #### [facility] [address] [place], [place] [address] Creatinine [Mass/Vol] 0.74 mg/dL Normal 0.51-0.95 [facility] Comment on above: Performed By: #### P 14 #### [facility] [address] [place], [place] [address] AST [Catalytic activity/Vol] 22 U/L Normal 15-37 [facility] Comment on above: Performed By: #### P 14 #### [facility] [address] [place], [place] [address] Albumin [Mass/Vol] 3.6 g/dL Normal 3.4-5.0 [facility] Comment on above: Performed By: #### P 14 #### [facility] [address] [place], [place] [address] Anion gap [Moles/Vol] 9 mmol/L Normal 8-16 [facility] Comment on above: Performed By: #### P 14 #### [facility] [address] [place], [place] [address] CO2 [Moles/Vol] 31 mmol/L Normal 21-32 [facility] Comment on above: Performed By: #### P 14 #### [facility] [address] [place], [place] [address] Urea nitrogen [Mass/Vol] 16 mg/dL Normal 7-18 [facility] Comment on above: Performed By: #### P 14 #### [facility] [address] [place], [place] [address] Calcium [Mass/Vol] 8.9 mg/dL Normal 8.5-10.1 [facility] Comment on above: Performed By: #### P 14 #### [facility] [address] [place], [place] [address] Glucose [Mass/Vol] 124 mg/dL High 70-99 [facility] Comment on above: Performed By: #### P 14 #### [facility] [address] [place], [place] [address] Chloride [Moles/Vol] 100 mmol/L Normal 98-107 [facility] Comment on above: Performed By: #### P 14 #### [facility] [address] [place], [place] [address] Potassium [Moles/Vol] 4.4 mmol/L Normal 3.5-5.1 [facility] Comment on above: Performed By: #### P 14 #### [facility] [address] [place], [place] [address] Sodium [Moles/Vol] 136 mmol/L Normal 136-145 [facility] Comment on above: Performed By: #### P 14 #### [facility] [address] [place], [place] [address] Creatinine,Urineon 9 Creatinine,Urine 71.9 mg/dL Normal [facility] Comment on above: Performed By: #### C EDILBERTO #### [facility] [address] [place] [address] Ferritinon 04-09-2019 Ferritin [Mass/Vol] 11.80 ng/mL Normal 8.00-252.00 [facility] Comment on above: Performed By: #### F ERR #### [facility] [address] [place] [address] Hemogram/Diffon 04-09-2019 Abs Immature Grans 0.03 thou/cmm Normal 0.00-0.05 [facility] Comment on above: Performed By: #### C BCD1 #### [facility] [address] [place] [address] Abs Neut (ANC) 4.15 thou/cmm Normal 1.56-6.13 [facility] Comment on above: Performed By: #### C BCD1 #### [place] [address] Abs. Baso 0.06 thou/cmm Normal 0.01-0.08 [facility] Comment on above: Performed By: #### C BCD1 #### [facility] [address] [place] [address] Abs. [place] 0.43 thou/cmm Normal 0.27-0.70 [facility] Comment on above: Performed By: #### C BCD1 #### [facility] [address] [place] [address] Basophils/100 WBC (Bld) 0.9 % Normal [facility] Comment on above: Performed By: #### C BCD1 #### [facility] [address] [place] [address] Eosinophils (Bld) [#/Vol] 0.18 thou/cmm Normal 0.00-0.31 [facility] Comment on above: Performed By: #### C BCD1 #### [facility] [address] [place] [address] Eosinophils/100 WBC (Bld) 2.6 % Normal [facility] Comment on above: Performed By: #### C BCD1 #### [facility] [address] [place] [address] Erythrocyte distribution width (RBC) [Ratio] 13.4 % Normal 11.7-14.4 [facility] Comment on above: Performed By: #### C BCD1 #### [facility] [address] [place] [address] Hematocrit (Bld) [Volume fraction] 39.8 % Normal 34.1-44.9 [facility] Comment on above: Performed By: #### C BCD1 #### [facility] [address] [place] [address] Hemoglobin (Bld) [Mass/Vol] 12.5 g/dL Normal 11.2-15.7 [facility] Comment on above: Performed By: #### C BCD1 #### [facility] [address] [place] [address] Immature Grans 0.40 % Normal [facility] Comment on above: Performed By: #### C BCD1 #### [facility] [address] [place] [address] Lymphocytes (Bld) [#/Vol] 2.09 thou/cmm Normal 1.18-3.74 [facility] Comment on above: Performed By: #### C BCD1 #### [facility] [address] [place] [address] Lymphocytes/100 WBC (Bld) 30.1 % Normal [facility] Comment on above: Performed By: #### C BCD1 #### [facility] [address] [place] [address] MCH (RBC) [Entitic mass] 26.7 pg Normal 25.6-32.2 [facility] Comment on above: Performed By: #### C BCD1 #### [facility] [address] [place] [address] MCHC (RBC) [Mass/Vol] 31.4 % Low 31.6-34.8 [facility] Comment on above: Performed By: #### C BCD1 #### [facility] [address] [place] [address] MCV (RBC) [Entitic vol] 85.0 fL Normal 79.4-94.8 [facility] Comment on above: Performed By: #### C BCD1 #### [facility] [address] [place], [place] [address] Monocytes/100 WBC (Bld) 6.2 % Normal [facility] Comment on above: Performed By: #### C BCD1 #### [facility] [address] [place], [place] [address] Platelet mean volume (Bld) [Entitic vol] 9.8 fL Normal 9.4-12.3 [facility] Comment on above: Performed By: #### C BCD1 #### [facility] [address] [place], [place] [address] Platelets (Bld) [#/Vol] 204 thou/cmm Normal 182-369 [facility] Comment on above: Performed By: #### C BCD1 #### [facility] [address] [place] [address] RBC (Bld) [#/Vol] 4.68 mil/cmm Normal 3.93-5.22 [facility] Comment on above: Performed By: #### C BCD1 #### [facility] [address] [place] [address] RDW SD 41.3 fl Normal 36.4-46.3 [facility] Comment on above: Performed By: #### C BCD1 #### [facility] [address] [place] [address] Seg Neutrophil 59.8 % Normal [facility] Comment on above: Performed By: #### C BCD1 #### [facility] [address] [place], [place] [address] WBC (Bld) [#/Vol] 6.94 thou/cmm Normal 3.98-10.04 [facility] Comment on above: Performed By: #### C BCD1 #### [facility] [address] [place], [place] [address] Iron % Saturationon 04-09-20 19 Iron % Saturation 17 % Low 20-55 [facility] Comment on above: Performed By: #### Derrell GUADALUPE #### [facility] [address] [place] [address] Iron Binding Cap. 369 ug/dL Normal 250-450 [facility] Comment on above: Performed By: #### I RONS #### [facility] [address] [place] [address] Iron Serum 61 ug/dL Normal 50-170 [facility] Comment on above: Performed By: #### I RONS #### [facility] [address] [place], [place] [address] MDRD GFRon 04-09-2019 GFR/1.73 sq M predicted among non-blacks MDRD (S/P/Bld) [Vol rate/Area] mL/min/{1.73_m2} Normal >60mL/min/1 .73m2 [facility] Comment on above: Result Comment: If t he patient is , multiply the result by 1.210. Performed By: #### G FR #### [facility] [address] [place] [id number] PROGRESSon 04-09-2019 PROGRESS HNO ID: [id number] Author: Jackie Rojas Service: ? Author Type: [...] for [address] Musa at [facility]. Takes oxycodone 2 times daily. Left [...] Diagnosis Date - DVT (deep venous thrombosis) ([facility]) 2013 post knee replacement - Fibromyalgia - Hemorrhage of gastrointestinal tract, unspecified - Hemorrhage of rectum and anus - Internal hemorrhoids without mention of complication - Other forms of migraine - Other unspecified back disorder - Pulmonary embolism ([facility]) 2013 PAST SURGICAL HISTORY Procedure Laterality Date - COLONOSCOP W/ OR W/O [facility] [[email or web address] SPEC 2002 Colonoscopy - INTRATHECAL BLOCK - [...] History Socioeconomic History Marital status: Spouse name: Janette Number of children: 2 Years of education: [...] file Gets together: Not on file Attends mormon service: Not on file Active member of [...] Education Completed: 13 years Marital Status: to [facility] with 2 children History Review: I have [...] SCREEN - DNA ANTIBODY DS BLD - TELEPHONE SERVICE REPRESENTATIVE ANTIBODY BLOOD - ACEVEDO IGG AB - [...] discuss lab results. Jackie Rojas MD Normal [facility] Rheumatoid Factoron 04-09-20 19 Rheumatoid Factor < 10.0 Normal 0.0-15.0 [facility] Comment on above: Performed By: #### R F1 #### [place] [address] Urinalysis, reflexon 019 Reflex Comment see below Normal [facility] Comment on above: Result Comment: Refl ex to culture is not indicated based on established laboratory criteria. Performed By: #### U RIN #### [place] [address] Bacteria LM.HPF (Urine sed) [#/Area] NONE Normal None [facility] Comment on above: Performed By: #### U RIN #### [place] [address] Ep Cells Urine 0.8 /hpf Normal 0.0-5.0 [facility] Comment on above: Performed By: #### U RIN #### [place] [address] Hyaline Cast 0.7 /lpf Normal 0.0-1.0 [facility] Comment on above: Performed By: #### U RIN #### [place] [address] RBC LM.HPF (Urine sed) [#/Area] 0.6 /[HPF] Normal 0.0-5.0 [facility] Comment on above: Performed By: #### U RIN #### [place] [address] WBC, reflex 0.90 /hpf Normal 0.00-5.00 [facility] Comment on above: Performed By: #### U RIN #### [place] [address] Appearance (U) CLEAR Normal [facility] Comment on above: Performed By: #### U RIN #### [facility] [address] [place] [address] Bilirubin (U) [Mass/Vol] Negative Normal Negative [facility] Comment on above: Performed By: #### U RIN #### [facility] [address] [place] [address] Color (U) YELLOW Normal [facility] Comment on above: Performed By: #### U RIN #### [facility] [address] [place] [address] Glucose Ql (U) Negative Normal Negative [facility] Comment on above: Performed By: #### U RIN #### [facility] [address] [place] [address] Hemoglobin,Urine Negative Normal Negative [facility] Comment on above: Performed By: #### U RIN #### [facility] [address] [place] [address] Ketone Urine Negative Normal Negative [facility] Comment on above: Performed By: #### U RIN #### [facility] [address] [place] [address] Leukocyte esterase Test strip Ql (U) TRACE Abnormal Negative [facility] Comment on above: Performed By: #### U RIN #### [facility] [address] [place] [address] Nitrite reflex Negative Normal Negative [facility] Comment on above: Performed By: #### U RIN #### [place] [address] pH (U) 5.0 [pH] Normal 5.0-8.0 [facility] Comment on above: Performed By: #### U RIN #### [facility] [address] [place] [address] Protein (U) [Mass/Vol] Negative Normal Negative [facility] Comment on above: Performed By: #### U RIN #### [facility] [address] [place] [address] Specific [place], Ur 1.017 Normal 1.005-1.030 [facility] Comment on above: Performed By: #### U RIN #### [facility] [address] [place], [place] [address] Urobilinogen,Ur 0.2 EU/dL Normal 0.2-1.[address] [facility] [employer] [facility] Comment on above: Performed By: #### U RIN #### [facility] [address] [place], [place] [address] Urine Proteinon 04-09-2019 Protein Ql (U) < 5.0 Normal 0.0-11.9 [facility] Comment on above: Performed By: #### U P #### [facility] [address] [place], [place] [address] XR FOOT 3V AP/LAT/OBL LTon 0 04-09-2019 [...] degenerative arthritis at the first MTP joints. Pattern Painter: [facility] Transcribe Date/Time: Apr 12 2019 2:06P Dictated by : YANETH PATEL MD This examination was interpreted and the report reviewed and electronically signed by: YANETH PATEL MD on Apr 12 2019 2:08PM EST Normal [facility] XR FOOT 3V AP/LAT/OBL RTon 0 [...] degenerative arthritis at the first MTP joints. Pattern Painter: JUANITA Transcribe Date/Time: Apr 12 2019 2:06P Dictated by : YANETH PATEL MD This examination was interpreted and the report reviewed and electronically signed by: YANETH PATEL MD on Apr 12 2019 2:08PM EST Normal [facility] XR HAND 3V PA/LAT/OBL LTon 0 [...] no abnormal calcifications. IMPRESSION: Within normal limits. Pattern Painter: JUANITA Transcribe Date/Time: Apr 12 2019 2:04P Dictated by : YANETH PATEL MD This examination was interpreted and the report reviewed and electronically signed by: YANETH PATEL MD on Apr 12 2019 2:06PM EST Normal [facility] XR HAND 3V PA/LAT/OBL RTon 0 [...] no abnormal calcifications. IMPRESSION: Within normal limits. Pattern Painter: JUANITA Transcribe Date/Time: Apr 12 2019 2:04P Dictated by : YANETH PATEL MD This examination was interpreted and the report reviewed and electronically signed by: YANETH PATEL MD on Apr 12 2019 2:06PM EST Normal [facility] XR LUMBAR 2V AP/LATon 2018 XR [...] IMPRESSION: Scoliosis, degenerative spondylosis, and postoperative changes. Pattern Painter: [facility] Transcribe Date/Time: Apr 12 2019 2:09P Dictated by : YANETH PATEL MD This examination was interpreted and the report reviewed and electronically signed by: YANETH PATEL MD on Apr 12 2019 2:11PM EST Normal [facility] XR SI JTS 2V AP PELV/FERGUSO [...] degenerative changes at the right sacroiliac joint. Pattern Painter: [facility] Transcribe Date/Time: Apr 12 2019 2:08P Dictated by : YANETH PATEL MD This examination was interpreted and the report reviewed and electronically signed by: YANETH PATEL MD on Apr 12 2019 2:09PM EST Normal [facility] Office Visit: Annualon 07-25 Dietary management education, guidance, and counseling (procedure) yes Invalid Interpretation Code [facility] Documentation of current medications (procedure) Done Invalid Interpretation Code [facility] Tobacco smoking status NHIS Never Invalid Interpretation Code [facility] Tobacco use CPHS Never smoker Invalid Interpretation Code [facility] Lab Report: Basic Metabolic Profile (BMP)on 12-09-2016 Anion gap 10 mmol/L Invalid Interpretation Code 5-15 [facility] BUN/Creatinine Ratio 18.5 RATIO Invalid Interpretation Code 10-20 [facility] Calcium 8.9 mg/dL Invalid Interpretation Code 8.5-10.1 [facility] Chloride 98 mmol/L Invalid Interpretation Code 98-107 [facility] CO2 32.0 mmol/L Invalid Interpretation Code 21.0-32.0 [facility] Creatinine 0.81 mg/dL Invalid Interpretation Code 0.55-1.02 [facility] eGFR (non-black) 77 mL/min/{1.73_m2} Invalid Interpretation Code >60 [facility] eGFR (non-black) 93 mL/min/{1.73_m2} Invalid Interpretation Code >60 [facility] Glucose mass conc 121 mg/dL High 70-110 [facility] Potassium molar conc 4.3 mmol/L Invalid Interpretation Code 3.5-5.1 [facility] Sodium 140 mmol/L Invalid Interpretation Code 136-145 [facility] Urea nitrogen 15 mg/dL Invalid Interpretation Code 7-18 [facility] Lab Report: Lipaseon 017 LIPASE 157 U/L Invalid Interpretation Code 73-393 [facility] Lab Report: Liver Profileon 12-09-2016 Alanine aminotransferase (ALT) 58 U/L Invalid Interpretation Code 12-78 [facility] Albumin 3.7 g/dL Invalid Interpretation Code 3.4-5.0 [facility] Alkaline phosphatase (ALP) 87 U/L Invalid Interpretation Code 45-117 [facility] Aspartate aminotransferase (AST) 37 U/L Invalid Interpretation Code 15-37 [facility] [facility] Bilirubin (direct) 0.07 mg/dL Invalid Interpretation Code 0.00-0.30 [facility] Bilirubin (total) 0.30 mg/dL Invalid Interpretation Code 0.20-1.00 [facility] Globulin 3.5 g/dL Invalid Interpretation Code 2.3-3.5 [facility] Protein 7.2 g/dL Invalid Interpretation Code 6.4-8.2 [facility] Office Visit: RUQ pain, dila mary anne CBD, no GS on U/Son 12-09-2016 Fall risk assessment No Invalid Interpretation Code [facility] Office Visit: RUQ pain, dila mary anne CBD, no GS on U/Son 08-29-2015 Breast Mammogram screening Normal Bilateral Invalid Interpretation Code [facility] General categories [Interpretation] of Cervical or vaginal smear or scraping by Cyto stain Normal Invalid Interpretation Code [facility] No Panel Informationon 03-04 [facility] Vital Signs Date Time Vital Sign Value Performing Clinician Facility 09-06-2023 13:50-0500 Body temperature 97 [degF] Renita ThomThe Lions DO Work Phone: [facility] 09-06-2023 13:50-0500 Diastolic blood pressure 62 mm[Hg] Renita Thomae DO Work Phone: [facility] 09-06-2023 13:50-0500 Heart rate 59 /min Renita FrenchWeb DO Work Phone: [facility] 01-09-2024 13:50-0500 Respiratory rate 16 /min Renita Mijares DO Work Phone: [facility] 09-06-2023 13:50-0500 SaO2% (BldA) [Mass fraction] 94 % Renita Mijares DO Work Phone: [facility] 09-06-2023 13:50-0500 Systolic blood pressure 111 mm[Hg] Renita Mijares DO Work Phone: [facility] 02-24-2023 15:16-0400 Body temperature 97.7 [degF] DR PJ MAHONEY MD [facility] 02-24-2023 15:16-0400 Diastolic Blood Pressure Non-Invasive [address] PJ MAHONEY MD [facility] 02-24-2023 15:16-0400 Heart rate 66 /min DR PJ MAHONEY MD [facility] 02-24-2023 15:16-0400 Reason For Taking VItal Signs DR PJ MAHONEY MD [facility] 02-24-2023 15:16-0400 Respiratory rate 16 /min DR PJ MAHONEY MD [facility] 02-24-2023 15:16-0400 Systolic Blood Pressure Non-Invasive [address] PJ MAOHNEY MD [facility] 02-24-2023 11:13-0400 Body temperature 98.42 [degF] DR PJ MAHONEY MD [facility] 02-24-2023 11:13-0400 Diastolic Blood Pressure Non-Invasive [address] PJ MAHONEY MD [facility] 02-24-2023 11:13-0400 Heart rate 71 /min DR PJ MAHONEY MD [facility] 02-24-2023 11:13-0400 Reason For Taking VItal Signs DR PJ MAHONEY MD [facility] 02-24-2023 11:13-0400 Respiratory rate 16 /min DR PJ MAHONEY MD [facility] 02-24-2023 11:13-0400 Systolic Blood Pressure Non-Invasive [address] PJ MAHONEY MD [facility] 02-24-2023 09:07-0400 Heart rate 84 /min DR PJ MAHONEY MD [facility] 02-24-2023 08:58-0400 Diastolic Blood Pressure Non-Invasive [address] PJ MAHONEY MD [facility] 02-24-2023 08:58-0400 Systolic Blood Pressure Non-Invasive [address] PJ MAHONEY MD [facility] 02-24-2023 08:12-0400 Body temperature 97.88 [degF] DR PJ MAHONEY MD [facility] 02-24-2023 08:12-0400 Heart rate 74 /min DR PJ MAHONEY MD [facility] 02-24-2023 08:12-0400 Reason For Taking VItal Signs DR PJ MAHONEY MD [facility] 02-24-2023 08:12-0400 Respiratory rate 18 /min DR PJ MAHONEY MD [facility] 02-23-2023 22:43-0400 Heart rate 60 /min DR PJ MAHONEY MD [facility] 02-23-2023 20:04-0400 Heart rate 64 /min DR PJ MAHONEY MD [facility] 02-23-2023 14:32-0400 Heart rate 82 /min DR PJ MAHONEY MD [facility] 02-23-2023 11:40-0400 Heart rate 70 /min DR PJ MAHONEY MD [facility] 02-22-2023 14:40-0400 Body height 162.[address] PJ MAHONEY MD [facility] 02-22-2023 14:40-0400 Body weight [address] PJ MAHONEY MD [facility] 02-22-2023 14:40-0400 Body weight 41.61 kg/m2 DR PJ MAHONEY MD [facility] 02-22-2023 13:15-0400 Body temperature 96.26 [degF] DR PJ MAHONEY MD [facility] 02-22-2023 12:04-0400 Body temperature 97.7 [degF] DR PJ MAHONEY MD [facility] 02-22-2023 12:00-0400 Respiratory Rate - Anes 3 br/min DR PJ MAHONEY MD [facility] 02-22-2023 11:55-0400 Respiratory Rate - Anes 26 br/min DR PJ MAHONEY MD [facility] 02-22-2023 11:50-0400 Body temperature 96.84 [degF] DR PJ MAHONEY MD [facility] 02-22-2023 11:50-0400 Respiratory Rate - Anes 23 br/min DR PJ MAHONEY MD [facility] 02-22-2023 11:45-0400 Body temperature 96.85 [degF] DR PJ MAHONEY MD [facility] 02-22-2023 11:40-0400 Body temperature 96.89 [degF] DR PJ MAHONEY MD [facility] 02-22-2023 09:31-0400 Body height 162.[address] PJ MAHONEY MD [facility] 02-22-2023 09:31-0400 Body temperature 98.42 [degF] DR PJ MAHONEY MD [facility] 02-22-2023 09:31-0400 Body weight [address] PJ MAHONEY MD [facility] 02-03-2023 13:58-0400 Blood Pressure Cuff Size DR PJ MAHONEY MD [facility] 02-03-2023 13:58-[address] PJ MAHONEY MD [facility] 02-03-2023 13:58-[address] PJ MAHONEY MD [facility] 02-03-2023 13:58-0400 Body height 162.[address] PJ MAHONEY MD [facility] 02-03-2023 13:58-0400 Body weight [address] PJ MAHONEY MD [facility] 02-03-2023 13:58-0400 Body weight 41.61 kg/m2 DR PJ MAHONEY MD [facility] 02-03-2023 13:58-0400 Diastolic Blood Pressure Non-Invasive [address] PJ MAHONEY MD [facility] 02-03-2023 13:58-0400 Heart rate 73 /min DR PJ MAHONEY MD [facility] 02-03-2023 13:58-0400 Systolic Blood Pressure Non-Invasive [address] PJ MAHONEY MD [facility] 09-17-2022 18:10-0500 Body temperature 98 [degF] Dr. Rica Padgett Work Phone: [facility] 09-17-2022 18:10-0500 Diastolic blood pressure 65 mm[Hg] Dr. Rica Padgett Work Phone: [facility] 09-17-2022 18:10-0500 Heart rate 75 /min Dr. Rica Padgett Work Phone: [facility] 09-17-2022 18:10-0500 Respiratory rate 16 /min Dr. Rica Padgett Work Phone: [facility] 09-17-2022 18:10-0500 SaO2% (BldA) [Mass fraction] 901 % Dr. Rica Padgett Work Phone: [facility] 09-17-2022 18:10-0500 Systolic blood pressure 119 mm[Hg] Dr. Rica Padgett Work Phone: [facility] 09-17-2022 11:45-0500 Body height 162.[address] Rica Padgett Work Phone: [facility] 09-17-2022 11:45-0500 Body weight 121.[address] Rica Padgett Work Phone: [facility] 09-16-2022 19:21-0500 Inhaled oxygen flow rate 2 L/min Dr. Rica Padgett Work Phone: [facility] 09-16-2022 19:15-0500 Body mass index (BMI) [Ratio] 46.1 kg/m2 Dr. Rica Padgett Work Phone: [facility] 09-13-2022 10:21-0500 Body mass index (BMI) [Ratio] 42.7 kg/m2 Dr. Rica Padgett Work Phone: [facility] 09-13-2022 10:21-0500 Body temperature 95.4 [degF] Dr. Rica Padgett Work Phone: [facility] 09-13-2022 10:21-0500 Body weight 116.[address] Rica Padgett Work Phone: [facility] 09-13-2022 10:21-0500 Diastolic blood pressure 80 mm[Hg] Dr. Rica Padgett Work Phone: [facility] 09-13-2022 10:21-0500 Heart rate 84 /min Dr. Rica Padgett Work Phone: [facility] 09-13-2022 10:21-0500 Respiratory rate 20 /min Dr. Rica Padgett Work Phone: [facility] 09-13-2022 10:21-0500 SaO2% (BldA) [Mass fraction] 90 % Dr. Rica Padgett Work Phone: [facility] 09-13-2022 10:21-0500 Systolic blood pressure 137 mm[Hg] Dr. Rica Padgett Work Phone: [facility] 05-19-2022 14:14-0400 Body temperature 95.3 [degF] Dr. Rica Padgett Work Phone: [facility] Work Phone: 05-19-2022 14:14-0400 Diastolic blood pressure 90 mm[Hg] Dr. Rica Padgett Work Phone: [facility] Work Phone: 05-19-2022 14:14-0400 Heart rate 81 /min Dr. Rica Padgett Work Phone: [facility] Work Phone: 05-19-2022 14:14-0400 Respiratory rate 20 /min Dr. Rica Padgett Work Phone: [facility] Work Phone: 05-19-2022 14:14-0400 SaO2% (BldA) [Mass fraction] 91 % Dr. Rica Padgett Work Phone: [facility] Work Phone: 05-19-2022 14:14-0400 Systolic blood pressure 156 mm[Hg] Dr. Rica Padgett Work Phone: [facility] Work Phone: 03-29-2022 09:18-0400 Body mass index (BMI) [Ratio] 42.9 kg/m2 Dr. Rica Padgett Work Phone: [facility] Work Phone: 03-29-2022 09:18-0400 Body temperature 96.3 [degF] Dr. Rica Padgett Work Phone: [facility] Work Phone: 03-29-2022 09:18-0400 Body weight 117.[address] Rica Padgett Work Phone: [facility] Work Phone: 03-29-2022 09:18-0400 Diastolic blood pressure 80 mm[Hg] Dr. Rica Padgett Work Phone: [facility] Work Phone: 03-29-2022 09:18-0400 Heart rate 80 /min Dr. Rica Padgett Work Phone: [facility] Work Phone: 03-29-2022 09:18-0400 Respiratory rate 20 /min Dr. Rica Padgett Work Phone: [facility] Work Phone: 03-29-2022 09:18-0400 SaO2% (BldA) [Mass fraction] 95 % Dr. Rica Padgett Work Phone: [facility] Work Phone: 03-29-2022 09:18-0400 Systolic blood pressure 162 mm[Hg] Dr. Rica Padgett Work Phone: [facility] Work Phone: 01-31-2022 03:58-0400 Diastolic blood pressure 82 mm[Hg] Dr. Rica Padgett Work Phone: [facility] Work Phone: 01-31-2022 03:58-0400 Heart rate 53 /min Dr. Rica Padgett Work Phone: [facility] Work Phone: 01-31-2022 03:58-0400 Respiratory rate 16 /min Dr. Rica Padgett Work Phone: [facility] Work Phone: 01-31-2022 03:58-0400 SaO2% (BldA) [Mass fraction] 98 % Dr. Rica Padgett Work Phone: [facility] Work Phone: 01-31-2022 03:58-0400 Systolic blood pressure 114 mm[Hg] Dr. Rica Padgett Work Phone: [facility] Work Phone: 01-30-2022 23:11-0400 Body height 162.[address] Rica Padgett Work Phone: [facility] Work Phone: 01-30-2022 23:11-0400 Body mass index (BMI) [Ratio] 42 kg/m2 Dr. Rica Padgett Work Phone: [facility] Work Phone: 01-30-2022 23:11-0400 Body temperature 97.9 [degF] Dr. Rica Padgett Work Phone: [facility] Work Phone: 01-30-2022 23:11-0400 Body weight 111.[address] Rica Padgett Work Phone: [facility] Work Phone: 01-25-2022 15:13-0400 Diastolic blood pressure 89 mm[Hg] Dr. Rica Padgett Work Phone: [facility] Work Phone: 01-25-2022 15:13-0400 Heart rate 78 /min Dr. Rica Padgett Work Phone: [facility] Work Phone: 01-25-2022 15:13-0400 Respiratory rate 18 /min Dr. Rica Padgett Work Phone: [facility] Work Phone: 01-25-2022 15:13-0400 SaO2% (BldA) [Mass fraction] 97 % Dr. Rica Padgett Work Phone: [facility] Work Phone: 01-25-2022 15:13-0400 Systolic blood pressure 143 mm[Hg] Dr. Rica Padgett Work Phone: [facility] Work Phone: 01-25-2022 12:56-0400 Body height 162.[address] Rica Padgett Work Phone: [facility] Work Phone: 01-25-2022 12:56-0400 Body mass index (BMI) [Ratio] 42.9 kg/m2 Dr. Rica Padgett Work Phone: [facility] Work Phone: 01-25-2022 12:56-0400 Body temperature 98.2 [degF] Dr. Rica Padgett Work Phone: [facility] Work Phone: 01-25-2022 12:56-0400 Body weight 113.[address] Rica Padgett Work Phone: [facility] Work Phone: 09-25-2021 14:30-0500 Body temperature 98.5 [degF] Dr. Rica Padgett Work Phone: [facility] Work Phone: 09-25-2021 14:30-0500 Diastolic blood pressure 78 mm[Hg] Dr. Rica Padgett Work Phone: [facility] Work Phone: 09-25-2021 14:30-0500 Heart rate 68 /min Dr. Rica Padgett Work Phone: [facility] Work Phone: 09-25-2021 14:30-0500 Respiratory rate 16 /min Dr. Rica Padgett Work Phone: [facility] Work Phone: 09-25-2021 14:30-0500 SaO2% (BldA) [Mass fraction] 93 % Dr. Rica Padgett Work Phone: [facility] Work Phone: 09-25-2021 14:30-0500 Systolic blood pressure 144 mm[Hg] Dr. Rica Padgett Work Phone: [facility] Work Phone: 09-25-2021 09:44-0500 Body height 162.[address] Rica Padgett Work Phone: [facility] Work Phone: 09-25-2021 09:44-0500 Body mass index (BMI) [Ratio] 42.9 kg/m2 Dr. Rica Padgett Work Phone: [facility] Work Phone: 09-25-2021 09:44-0500 Body weight 113.[address] Rica Padgett Work Phone: [facility] Work Phone: 05-22-2021 01:30-0400 Diastolic blood pressure 66 mm[Hg] Rica Malys Other Phone: [facility] 05-22-2021 01:30-0400 Heart rate 72 /min Rica Malys Other Phone: [facility] 05-22-2021 01:30-0400 Respiratory rate 16 /min Rica Malys Other Phone: [facility] 05-22-2021 01:30-0400 SaO2% (BldA) [Mass fraction] 96 % Rica Malys Other Phone: [facility] 05-22-2021 01:30-0400 Systolic blood pressure 138 mm[Hg] Rica Malys Other Phone: [facility] 05-21-2021 22:35-0400 Body height 162.5 cm Rica Malys Other Phone: [facility] 05-21-2021 22:35-0400 Body temperature 97.16 [degF] Rica Malys Other Phone: [facility] 05-21-2021 22:35-0400 Body weight 109.3 kg Rica Malys Other Phone: [facility] 02-13-2021 05:12-0400 Diastolic blood pressure 73 mm[Hg] Rica Malys Other Phone: [facility] 02-13-2021 05:12-0400 Heart rate 55 /min Rica Malys Other Phone: [facility] 02-13-2021 05:12-0400 Respiratory rate 18 /min Rica Padgett Other Phone: [facility] 02-13-2021 05:12-0400 SaO2% (BldA) [Mass fraction] 92 % Rica Padgett Other Phone: [facility] 02-13-2021 05:12-0400 Systolic blood pressure 143 mm[Hg] Rica Padgett Other Phone: [facility] 02-13-2021 02:01-0400 Body temperature 97.16 [degF] Rica Padgett Other Phone: [facility] 07-25-2017 14:03-0500 BMI (Body Mass Index) 39.79 kg/m2 Azra Gee NP [facility] 07-25-2017 14:03-0500 BP Diastolic 78 mm[Hg] Azra Gee [employer] [facility] 07-25-2017 14:03-0500 BP Systolic 128 mm[Hg] Azra Gee [employer] [facility] 07-25-2017 14:03-0500 Height 161.93 cm Azra Gee [employer] [facility] 07-25-2017 14:03-0500 Weight 104.33 kg Azra Gee NP [facility] 12-09-2016 11:09-0400 Body Temperature 98 [degF] Azra Gee [employer] [facility] 12-09-2016 11:09-0400 BSA (Body Surface Area) 2.11 m2 Azra Gee NP [facility] 12-09-2016 11:09-0400 Pulse (Heart Rate) 86 /min Azra Gee NP [facility] 12-09-2016 11:09-0400 Respiratory Rate 18 /min Azra Gee NP [facility] Encounters Encounter Date Encounter Type Care Provider Facility Start: 03-28-2025 ambulatory Rica Padgett Facility:[facility] Start: 03-25-2025 ambulatory Tre Anderson Facility:[facility] Start: 03-25-2025 Evaluation and manag ement of inpatient Rica Malwinston Facility:[facility] Start: 03-21-2025 End: 03-21-2025 ambulatory Michi Lind Facility:[facility] Start: 03-15-2025 ambulatory Morgan Edwards ty:[facility] Start: 03-15-2025 End: 03-18-2025 Evaluation and management of inpatient Rica Malys Facility:[facility] Start: 03-11-2025 End: 03-11-2025 ambulatory Pj Lee Facility:[facility] Start: 02-18-2025 ambulatory Marissa Ruiz Facility :[facility] Start: 02-09-2025 End: 02-09-2025 ambulatory Rafi Berry Facility:[facility] Start: 02-04-2025 End: 02-04-2025 ambulatory Rica Lorin Facility:[facility] Start: 01-07-2025 End: 01-07-2025 ambulatory Pj Lee Facility:[facility] Start: 01-03-2025 End: 01-03-2025 ambulatory Rafi Berry Facility:[facility] Start: 11-29-2024 ambulatory Matt Oglesby Facility:[facility] Start: 11-29-2024 End: 11-29-2024 ambulatory Deuce Shaw Facility:[facility] Start: 11-20-2024 End: 11-20-2024 Emergency department patient visit Rica Malwinston Facility:[facility] Start: 11-19-2024 End: 11-19-2024 ambulatory Marissa Joseph Facility:[facility] Start: 10-15-2024 End: 10-15-2024 Emergency department patient visit Rm Keating Facility:[facility] Start: 10-12-2024 End: 10-12-2024 Emergency department patient visit Uday Stokes Facility:[facility] Start: 10-08-2024 End: 10-08-2024 ambulatory Rica Malys Facility:[facility] Start: 09-03-2024 End: 09-03-2024 ambulatory Rica Malys Facility:[facility] Start: 07-27-2024 End: 07-28-2024 ambulatory Rica Malys Facility:[facility] Start: 07-13-2024 End: 07-13-2024 ambulatory Martin Mortenseni Facility:[facility] Start: 06-06-2024 End: 06-06-2024 ambulatory Marissa Joseph Facility:[facility] Start: 06-01-2024 End: 06-01-2024 ambulatory Rica Padgett Facility:[facility] Start: 05-14-2024 ambulatory Marissa Joseph Facility :[facility] Start: 05-07-2024 End: 05-07-2024 ambulatory Pj Lee Facility:[facility] Start: 04-02-2024 End: 04-02-2024 ambulatory Marissa Joseph Facility:[facility] Start: 11-03-2023 Telephone encounter Yovanny Rogers i, MD Work Phone: [facility] Comment on above: Referral (Confirm re ceipt of referral faxed 11/01/23) Start: 09-06-2023 End: 09-07-2023 ambulatory [facility] Start: 09-06-2023 End: 09-06-2023 Subsequent hospital visit by physician Renita Mijares DO Work Phone: [facility] Comment on above: Diarrhea, unspecifie d type (Primary Dx) Start: 02-22-2023 End: 02-24-2023 ambulatory PJ MAHONEY Facility:[facility] Start: 02-22-2023 End: 02-24-[address] PJ MAHONEY MD [facility] Start: 02-03-2023 End: 02-04-2023 ambulatory PJ MAHONEY Facility:[facility] Start: 02-03-2023 End: 02-04-2023 ambulatory PJ MAHONEY Facility:[facility] Start: 02-03-2023 End: 02-03-[address] PJ MAHONEY MD [facility] Start: 02-03-2023 End: 02-03-[address] PJ MAHONEY MD [facility] Start: 10-06-2022 [address] rd-Myke Anderson DO Work Phone: [facility] Comment on above: Page Out Start: 09-27-2022 Orders Only Nicolás Swenson Work Phone: Orthopaedics Comment on above: 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 Rica Padgett Work Phone: [facility] Work Phone: Start: 09-20-2022 End: 09-20-[address] Rica Padgett Work Phone: [facility] Start: 09-17-2022 Non-patient / Non-visit Dr. Angela Padgett Work Phone: [facility] Start: 09-17-2022 Non-patient / Non-visit Dr. Angela Padgett Work Phone: [facility] Start: 09-16-2022 Non-patient / Non-visit Dr. Angela Padgett Work Phone: [facility] Start: 09-16-2022 End: 09-17-2022 Evaluation and management of inpatient Dr. Rica Padgett Work Phone: [facility] Surgical 3 Start: 09-15-2022 End: 09-15-[address] Rica Padgett Work Phone: [facility] Work Phone: Start: 09-15-2022 End: 09-15-[address] Rica Padgett Work Phone: [facility]Cardi[facility] Start: 09-13-2022 End: 09-13-[address] Rica Padgett Work Phone: [facility] Start: 07-07-2022 End: 07-07-[address] Rica Padgett Work Phone: [facility] Work Phone: Start: 07-07-2022 End: 07-07-[address] Rica Padgett Work Phone: [facility] Start: 06-23-2022 Telephone encounter Nicolás velazquez MD Work Phone: Orthopaedics Comment on above: Question Start: 05-19-2022 End: 05-19-[address] Rica Padgett Work Phone: [facility] Start: 05-19-2022 End: 05-19-2022 ambulatory NICOLÁS AGGARWAL Facility:[facility] Start: 05-19-2022 End: 05-19-2022 Patient encounter procedure Nicolás Aggarwal MD Work Phone: Orthopaedics Comment on above: Pes planus of left f oot (Primary Dx); Primary osteoarthritis of left foot; Diabetic neuropathy, painful (HCC); Acquired valgus deformity of left ankle Start: 05-19-2022 End: 05-19-2022 Subsequent hospital visit by physician [facility] Work Phone: Radiology Comment on above: Pain [R52] Start: 03-29-2022 End: 03-29-[address] Rica Padgett Work Phone: [facility] Start: 01-30-2022 End: 01-31-2022 Emergency department patient visit Dr. Rica Padgett Work Phone: [facility] Start: 01-25-2022 End: 01-25-2022 Emergency department patient visit Dr. Rica Padgett Work Phone: [facility] Start: 11-12-2021 End: 11-12-[address] Rica Padgett Work Phone: [facility]Cat [facility], [facility] Start: 11-11-2021 End: 11-11-[address] Rica Padgett Work Phone: [facility], [facility] Start: 11-10-2021 End: 11-10-[address] Rica Padgett Work Phone: [facility]-Pre-Admission Testing Start: 11-10-2021 Non-patient / Non-visit Dr. Angela Padgett Work Phone: [facility] Start: 09-25-2021 End: 09-25-2021 Admission to same day surgery center Dr. Rica Padgett Work Phone: [facility] Start: 08-07-[address] Rica Padgett Work Phone: [facility] Start: 05-21-2021 End: 05-22-2021 Emergency department patient visit Silvana Yasmany [facility] Emergency 11 Start: 02-13-2021 End: 02-13-2021 Emergency department patient visit Jesus Amezquita [facility] Emergency 11 Start: 02-08-2020 End: 02-08-2020 Patient encounter procedure [facility] Start: 02-07-2015 End: 02-07-2015 Telephone encounter Azra Cancinos Work Phone: OB/Gynecology Comment on above: Yearly Exam With Jermaine mogram Procedures Date Procedure Procedure Detail Performing Clinician Start: 09-06-2023 DISCHARGE PATIENT RENITA MIJARES Start: 09-06-2023 PLACE IN OUTPATIENT/HOSPITAL AMBULATORY SURGERY RENITA MIJARES Start: 09-06-2023 PULSE OXIMETRY, SPOT DA LE BETSY Start: 09-06-2023 Colon ca scrn not hi rsk ind Renita R Thomae DO Work Phone: Start: 09-06-2023 PULSE OXIMETRY, SPOT Da le R Thomae DO Work Phone: Start: 09-06-2023 Colonoscopy Renita Yanes e DO Work Phone: Start: 02-22-2023 Total [...] Pelvic & Breast Exam (Medicare) Azra Gee [employer] Work Phone: Start: 12-09-2016 End: 12-09-2016 *BMP Hanna Urbano MD Work Phone: Start: 12-09-2016 End: 12-10-2016 *Hepatic Function Panel Hanna vargas MD Work Phone: Start: 12-09-2016 End: 12-09-2016 Lipase [Enzymatic activity/volume] in Serum or Plasma Hanna Urbano MD Work Phone: Start: 03-22-2016 Mammography Azra mcfarland Work Phone: Start: 03-04-2015 MAMMOGRAM SCREENING BAM Azra Gee Work Phone: Start: 03-19-2003 Colonoscopy Azra jameszena Work Phone: Decompression of med inderjit nerve [...] Screening for malign ant neoplasm of colon [facility] Start: 05-22-2029 Screening for malign ant neoplasm of colon [facility] Start: 10-05-2025 Diabetes mellitus screening Diabetes Screening [facility] Start: 10-05-2023 Hemoglobin A1c measurement Diabetes: Hemoglobin A1C [facility] Start: 10-01-2023 Lipid panel Lipid Panel [facility] Start: 10-01-2023 Thyroid stimulating hormone measurement TSH Level [facility] Start: 08-29-2023 Medicare Advantage A nnual Wellness Visit Medicare Advantage [facility] [facility] Start: 08-05-2023 COVID-19 Vaccine (4 - Pfizer series) COVID-19 Vaccine (4 - Pfizer series) [facility] Start: 2023 Advance Directive Discussion Advance Directive Discussion [facility] Start: 2023 Bone Density Screening Bone Density Screening [facility] Start: 2023 Pneumococcal Vaccine : 65+ Years (2 of 2 - PCV) Pneumococcal Vaccine: 65+ Years (2 of 2 - PCV) [facility] Start: 04-29-2023 COVID-19 Vaccine ( season) COVID-19 Vaccine ( season) [facility] Start: 04-29-2023 Influenza vaccination Influenza Vacc ine (#1) [facility] Start: 04-01-2023 Depresssion Monitoring Depresssion M onitoring [facility] Start: 01-02-2023 Hemoglobin A1c measurement Diabetes: Hemoglobin A1C [facility] Start: 09-17-2022 Patient discharge [facility] Start: 09-16-2022 Ambulation without limitation [facility] Start: 09-16-2022 Assessment of risk o f venous thromboembolism [facility] Start: 09-16-2022 Care regimes management [facility] Start: 09-16-2022 Catheterization of vein [facility] Start: 09-16-2022 Continuous positive airway pressure ventilation treatment [facility] Start: 09-16-2022 Insertion of cathete r into peripheral vein [facility] Start: 09-16-2022 Notification of physician [facility] Start: 09-16-2022 Oxygen therapy [facility] Start: 09-16-2022 Providing care accor ding to standard [facility] Start: 09-16-2022 [facility] Start: 09-16-2022 Admission procedure [facility] Start: 09-16-2022 Following clinical pathway protocol [facility] Start: 09-16-2022 Patient referral to dietitian [facility] Start: 08-29-2022 DEPRESSION ASSESSMENT DEPRESSION ASS ESSMENT [facility] Start: 04-29-2022 Influenza vaccination INFLUENZA (#1) [facility] Start: 04-09-2022 DIABETES SCREEN DIABETES SCREEN [facility] Start: 09-25-2021 Anesthesia lumbar re gion nos ANESTH SPINE CORD SURGERY [facility] Work Phone: Start: 09-25-2021 Impltj/rplcmt ithcl/ edrl drug nfs prgrbl pump IMPLANT SPINE INFUSION PUMP [facility] Work Phone: Start: 08-29-2021 DEPRESSION ASSESSMENT DEPRESSION ASS ESSMENT [facility] Start: 04-29-2021 Influenza vaccination INFLUENZ A (Season Ended) [facility] Start: 04-09-2020 Hepatitis B screening URINE ALBUMIN:CREATININE RATIO [facility] Start: 2018 Hepatitis B Vaccine (1 of 3 - Risk 3-dose series) Hepatitis B Vaccine (1 of 3 - Risk 3-dose series) [facility] Start: 2018 RSV Immunization age d 60 or older (1 - 1-dose 60+ series) RSV Immunization aged 60 or older (1 - 1-dose 60+ series) [facility] Start: 07-25-2017 End: 07-25-2017 Appointment Appointment [facility] Start: 03-22-2017 Mammography [facility] Start: 12-09-2016 End: 12-09-2016 *BMP *BMP [facility] Start: 12-09-2016 End: 12-10-2016 *Hepatic Function Panel *Hepatic Function Panel [facility] Start: 12-09-2016 End: 12-09-2016 Ct abdomen & pelvis w/contrast material CT Abdomen/pelvis; with contrast [facility] Start: 12-09-2016 End: 12-10-2016 Follow Up after Imaging/labs Follow Up after Imaging/labs [facility] Start: 12-09-2016 End: 12-09-2016 Lipase *Lipase [facility] Start: 12-08-2015 End: 12-08-2015 *CBC with Differential *CBC with Differential [facility] Start: 12-08-2015 End: 12-08-2015 *CMP Complete Metabolic Panel *CMP Complete Metabolic Panel [facility] Start: 12-08-2015 End: 12-08-2015 *PROTS Protein S Defic. Profile [id number] *PROTS Protein S Defic. Profile [id number] [facility] Start: 12-08-2015 End: 12-08-2015 *UA - Urinalysis w/o Micro *UA - Urinalysis w/o Micro [facility] Start: 12-08-2015 End: 12-08-2015 Antithrombin actual/normal in Platelet poor plasma by Chromogenic method *AT3 - Antithrombin 3 Activity [id number] [facility] Start: 12-08-2015 End: 12-08-2015 Cardiolipin Antibodies (IgA IgG IgM) Cardiolipin Antibodies (IgA IgG IgM) [facility] Start: 12-08-2015 End: 12-08-2015 Clotting inhibitors protein c activity Protein C Activity [facility] Start: 12-08-2015 End: 12-08-2015 Ct thorax w/contrast material CT Chest with Contrast [facility] Start: 12-08-2015 End: 12-08-2015 Factor V (Leiden) Mutation Analysis Factor V (Leiden) Mutation Analysis [facility] Start: 12-08-2015 End: 12-08-2015 Lipid panel [AGGREGATE] *Lipid Profile [facility] Start: 12-08-2015 End: 12-08-2015 Thyroid stimulating hormone (TSH) *TSH [facility] Start: 12-08-2015 End: 12-08-2015 Urine, microalbumin *Urine, Microalbumin [facility] Start: 07-29-2015 LIPID SCREEN LIPID SCREEN [facility] Start: 02-26-2014 Screening for malign ant neoplasm of colon SIGMOIDOSCOPY [facility] Start: 02-26-2014 SIGMOIDOSCOPY SIGMOIDOSCOPY [facility] Start: 03-19-2013 Colonoscopy COLONOSCOPY [facility] Start: 03-19-2013 COLORECTAL CANCER SCREENING COLORECTAL CANCER SCREENING [facility] Start: 03-19-2013 Screening for malign ant neoplasm of colon [facility] Start: 07-03-2011 Hemoglobin A1c/Hemoglobin.total in Blood HBA1C [facility] Start: 2008 Screening for malign ant neoplasm of colon [facility] Start: 2008 SHINGRIX VACCINE (1 of 2) ROMAN GRIX VACCINE (1 of 2) [facility] Start: 2003 COLOGUARD (FIT-DNA) COLOGUARD (FIT-D NA) [facility] Start: [address] COLONOGRAPHY [facility] Start: 2003 FECAL OCCULT BLOOD FECAL OCCULT BLOO D [facility] Start: 1998 Screening for malign ant neoplasm of breast Mammogram [facility] Start: 1988 Screening for malign ant neoplasm of cervix [facility] Start: 1980 DTaP/Tdap/Td Vaccine s (1 - Tdap) DTaP/Tdap/Td Vaccines (1 - Tdap) [facility] Start: 1979 Screening for malign ant neoplasm of cervix [facility] Start: 1977 DTaP/Tdap/Td Vaccine s (1 - Tdap) DTaP/Tdap/Td Vaccines (1 - Tdap) [facility] Start: 1977 Urine microalbumin profile [facility] Start: 1977 Urine screening for protein Diabetes: Urine Protein Screening [facility] Start: 1976 ANNUAL PCP TEAM BUSINESS DEVELOPMENT EXECUTIVE DYLAN DISEASE VISIT ANNUAL PCP TEAM CHRONIC DISEASE VISIT [facility] Start: 1976 Hepatitis B surface antibody level LDL CHOLESTEROL [facility] Start: 1976 HEPATITIS C SCREENING HEPATITIS C [facility] Start: 1976 Hepatitis C screening Hepatitis C [facility] Start: 1976 HIV SCREENING HIV SCREENING [facility] Start: 1970 Adult depression screening assessment DEPRESSION SCREENING [facility] Start: 1968 3 comp foot exam completed DIABETIC FOOT EXAM [facility] Start: 1968 Diabetic foot examination Diabetes: Foot Exam [facility] Start: 1968 Glaucoma screening Diabetes: R etinopathy Screening [facility] Start: 1968 Hepatitis B screening Urine Albumin:Creatinine Ratio [facility] Start: 1968 Hepatitis C antibody , confirmatory test DILATED RETINAL EXAM [facility] Start: 1968 Preventive dental service Diabetes: Dental Exam [facility] Start: 1964 PNEUMOCOCCAL (1 - PCV) PNEUMOCOCCAL (1 - PCV) [facility] Start: 1964 Pneumococcal Vaccine : 65+ (1 - PCV) Pneumococcal Vaccine: 65+ (1 - PCV) [facility] Start: 1959 MMR Vaccines (1 of 1 - Standard series) MMR Vaccines (1 of 1 - Standard series) [facility] Start: 1958 COVID-19 VACCINE (#1) COVID-19 VACCI NE (#1) [facility] Start: 1958 Annual wellness visit Medicare Initial Physical (IPPE) [facility] Start: 1958 Hepatitis B Vaccines (1 of 3 - 3-dose series) Hepatitis B Vaccines (1 of 3 - 3-dose series) [facility] Start: 1958 HIV screening HIV Screening [facility] Start: 1958 Lipid panel Lipid Panel [facility] Start: 1958 Screening for malign ant neoplasm of colon [facility] Start: 1958 Screening for osteoporosis Bone Density Scan [facility] Start: 1958 Thyroid stimulating hormone measurement TSH Level [facility] End: 09-06-2023 Moderate Sedation Moderate Sedation Procedures Routine Once for 1 Occurrences starting 09/06/2023 until 09/06/2023 [facility] Service Area Work Phone: Comment on above: Once for 1 Occurrenc es starting 09/06/2023 until 09/06/2023 Patient Education [facility] referral [facility] Work Phone: End: 10-27-2023 XR ANKLE GENERAL 3V AP/LAT/OBL LEFT XR ANKLE GENERAL 3V AP/LAT/OBL LEFT Radiology Routine Acquired valgus deformity of left ankle 1 Occurrences starting 09/28/2022 until 10/27/2023 [facility] Work Phone: Comment on above: 1 Occurrences starti ng 09/28/2022 until 10/27/2023 [facility] Immunizations Immunization Date Immunization Notes Care Provider Mikayla ruiz 06-16-2022 influenza virus vaccine, unspecified formulation Yovanny Landis MD Work Phone: [facility] 06-25-2018 influenza virus vaccine, unspecified formulation Xr Rej Work Phone: [facility] 05-29-2015 influenza, seasonal, injectable Dr. Rica Padgett Work Phone: [facility] 06-29-[address] Rica Padgett Work Phone: [facility] 07-26-2012 influenza virus vaccine, unspecified formulation Azra Cancinos Work Phone: [facility] 05-13-[address] Danya Padgett Work Phone: [facility] Work Phone: 05-13-2012 pneumococcal vaccine , unspecified formulation Dr. Rica Padgett Work Phone: [facility] NEGATED: Highlighted row has not occurred!10-03-2022 Influenza, injectable, [place] [place] Canine Kidney, preservative free, quadrivalent Tre Justin DO Work Phone: [facility] Comment on above: Deferred: Patient Re fused Payers Date Payer Category Payer Self-pay [id number] 2022 [employer] ( and others) [id number] 2022 [employer] ( and others) [id number] 2022 Private Health Insurance [id number] 2022 Medicare [id number] 2017 Unknown [id number] 2013 [employer] ( and others) [id number] 2013 Unknown FOR LIFE [id number] 2013-Present Indemnity [id number] 2007 Medicare MEDICARE MEDICAR E B [id number] 2007-2016 [place] [id number] 2007 Medicare [id number] 2004 Medicare [id number] 2004 Medicare MEDICARE MEDICAR E A AND B [id number] 2004-Present [place] [id number] .[id number] 2004 Unknown 1958 Unknown [id number] 2.16840.1.623872.3.579.2 .651 1958 Unknown [id number] .840.1.515260.3.579.2 .627 1958 Unknown [id number] 2.16.840.1.402560.3.579.2 .627 1958 Unknown [id number] .840.1.932972.3.579.2 .627 1958 Unknown [id number] 2.16.840.1.237508.3.579.2 .1243 Unknown [id number] 2.16.840.1.287022.3.579.2 .462 Unknown [id number] 2.16.840.1.829493.3.579.2 .462 Unknown [id number] 2.16.840.1.377100.3.579.2 .462 Unknown [id number] 2.16.840.1.798681.3.579.2 .462 Unknown [id number] 2.16.840.1.367583.3.579.2 .462 Unknown [id number] 2.16.840.1.287307.3.579.2 .462 Unknown [id number] 2.16.840.1.580470.3.579.2 .462 Unknown [id number] 2.16.840.1.269580.3.579.2 .462 Unknown [id number] 2.16.840.1.195787.3.579.2 .462 Unknown [id number] 2.16.840.1.582904.3.579.2 .462 Unknown [id number] 2.16.840.1.379340.3.579.2 .462 Unknown [id number] 2.16840.1.472146.3.579.2 .462 Unknown [id number] 2.16840.1.924974.3.579.2 .462 Unknown [id number] 2.16.840.1.678304.3.579.2 .462 Unknown [id number] 2.16.840.1.206351.3.579.2 .462 Unknown [id number] 2.16.840.1.644843.3.579.2 .462 Unknown [id number] 2.16840.1.936509.3.579.2 .462 Unknown [id number] 2.16.840.1.349051.3.579.2 .462 Unknown [id number] 2.16.840.1.262495.3.579.2 .462 Unknown [id number] 2.16.840.1.512371.3.579.2 .462 Unknown [id number] 2.16.840.1.297498.3.579.2 .462 Unknown [id number] 2.16.840.1.112916.3.579.2 .462 Unknown [id number] 2.16.840.1.676767.3.579.2 .462 Unknown [id number] 2.16.840.1.472327.3.579.2 .462 Unknown [id number] 2.16.840.1.352067.3.579.2 .462 Unknown [id number] 2.16.840.1.999551.3.579.2 .462 Unknown [id number] 2.16.840.1.313219.3.579.2 .462 Unknown [id number] 2.16.840.1.044396.3.579.2 .462 Unknown [id number] 2.16.840.1.517403.3.579.2 .462 Unknown [id number] 2.16.840.1.819959.3.579.2 .462 Unknown [id number] 2.840.1.209462.3.579.2 .462 Unknown [id number] 2.16840.1.222634.3.579.2 .462 Social History Date Type Detail Facility Start: 03-06-2011 End: 09-21-2012 Tobacco smoking status MDIS Former smoker [facility] Work Phone: Comment on above: quit in 1993 End: 03-21-1994 History of tobacco use Current smoker [facility] Start: 09-21-2012 End: 09-06-2023 Tobacco use and exposure Never used [facility] Start: 09-21-2012 Alcohol intake Current non-dr siegel of alcohol (finding) [facility] Start: 1960 Sex Assigned At Not on file [facility] Start: 11-10-2021 End: 09-16-2022 Tobacco smoking consumption unknown [facility] Start: 08-11-2019 Rare [facility] Start: 08-11-2019 None [facility] Start: 12-08-2020 Spouse/ Signif icant Other [facility] Start: 05-18-2019 Non-smoker [facility] Start: 1960 Sex Assigned At Female W [facility] End: 03-21-1994 History of tobacco use Cigarette Smoker [facility] Work Phone: Start: 04-13-2022 Alcohol intake Current drinke r of alcohol (finding) [facility] Start: 04-09-2019 History SDOH Alcohol Comment rarely [facility] Start: 05-09-2022 End: 09-06-2023 Exposure to SARS-CoV-2 (event) Not sure [facility] Start: 02-03-2023 End: 09-06-2023 Tobacco smoking status Never smoked tobacco (finding) [facility] Sex Assigned At Sex [facility] Start: 04-13-2022 End: 10-02-2022 History of Social function [facility] Start: 04-13-2022 End: 10-02-2022 Tobacco use panel [facility] National Score (1-10 0), lower number is lower risk Not on file [facility] Start: 09-06-2023 Alcohol intake Lifetime non-d sue (finding) [facility] Work Phone: Within the last year , have you been afraid of your partner or ex-partner? No [facility] How often to you hav e a drink containing alcohol? Monthly or less [facility] How many standard drinks containing alcohol do you have on a typical day? 1 or 2 [facility] How often do you hav e 6 or more drinks on 1 occasion? Never [facility] Start: 10-04-2022 Sexual orientation Heterosexual (fin omari) [facility] Start: 10-02-2022 History SDOH Alcohol Frequency 2 [facility] Start: 10-02-2022 History SDOH Alcohol Std Drinks 1 [facility] Medical Equipment Procedure Code Equipment Code [...] Facility 02-24-2023 Functional Status Room check performed [facility] 02-24-2023 Functional Status [facility] 02-24-2023 Functional Status Independent [facility] 02-24-2023 Functional Status Min A [facility] 02-24-2023 Functional Status Demonstrates C orrect Call Light Use Yes [facility] 02-23-2023 Functional Status [facility] 02-23-2023 Functional Status Dinner Percent 25 [facility] 02-23-2023 Functional Status [facility] 02-23-2023 Functional Status 60 [facility] 02-23-2023 Functional Status 2 [facility] 02-23-2023 Functional Status Single level home [facility] 02-23-2023 Functional Status [facility] 02-22-2023 Functional Status [facility] 02-22-2023 Functional Status [facility] 02-22-2023 Functional Status Cane, Walker [facility] 02-22-2023 Functional Status ice on, tension pillow in place [facility] 02-22-2023 Functional Status NPO Status Maintained [facility] 02-03-2023 Functional Status Sensory Deficits None [facility] 09-17-2022 Functional status Ambulates [facility] Work Phone: Mental Status Date Assessment Result Facility 02-24-2023 Mental Status Orientation Asse ssment Oriented x 4 [facility] 02-24-2023 Mental Status [facility] 02-24-2023 Mental Status Oriented x 4 [facility] 02-23-2023 Mental Status [facility] 02-23-2023 Mental Status [facility] 09-16-2022 Cognitive function Voice/Name [facility] Work Phone: 01-30-2022 Cognitive function Level Of Cons ciousness Awake;Alert;Appropriate;Follow s Commands [facility] Work Phone: 09-25-2021 Cognitive function Level Of Cons ciousness Appropriate;Drowsy [facility] Work Phone: 09-25-2021 Cognitive function Voice/Name [facility] Work Phone: Clinical Notes 02-07-2015 to 03-18-2025 Telephone Encounter - Kitty Greco - 11/07/2023 10:14 AM EDTTelephone Encounter - Kitty Greco - 11/07/2023 10:14 AM EDTTelephone Encounter - Maria Teresa Bacon - 11/03/2023 9:43 AM EST Note Date & Type Note Facility 03-18-2025 Note [facility] 07-28-2024 Note [facility] 11-07-2023 Note Spoke to patient and [...] the referral to us. Patient verbalized understanding. [facility] 11-07-2023 Miscellaneous Notes Spoke to patient and advised her that we have not received her referral and requested her to have her pcp refax the referral to us. Patient verbalized understanding. Name of caller: Flex Contact phone number: [phone] Relationship to Patient: patient Provider: Dr. Landis [...] their call: No documented in this encounter [facility] 11-03-2023 Telephone encounter Note Name of caller: Flex Contact phone number: [phone] Relationship to Patient: patient Provider: Dr. Landis [...] business hours to return their call: No [facility] 09-06-2023 Hospital Discharg e instructions Mariia [...] having your procedure, call the [facility] to be advised whether a visit to [...] Lab, please call: Nurse Signature Date Patient/Responsible Republican Signature Date documented in this encounter [facility] Work Phone: 09-06-2023 History and physical [...] care of this patient. Renita Mijares DO [facility] Work Phone: 09-06-2023 History and physical [...] Renita Mijares DO documented in this encounter [facility] Work Phone: 09-06-2023 Miscellaneous Notes Patient: Flex Wooten Pre-sedation Evaluation: Sedation necessary for: Analgesia Requesting service: Endoscopy History of Present Illness: Colonoscopy Past Medical History: Diagnosis Date Anxiety Chronic pain Depression Diabetes mellitus (CMS/HCC) Disease of thyroid gland Sleep apnea Principle problems: There are no problems to display for this patient. Allergies: Allergies Allergen Reactions Effexor [Venlafaxine] GI Upset INSURANCE PROFESSIONAL/Current Medications: (Not in a hospital admission) Current [...] ASA 2 Moderate documented in this encounter [facility] Work Phone: 09-06-2023 Note Formatting of this n ote is different from the original. Patient: Flex Wooten Pre-sedation Evaluation: Sedation necessary for: Analgesia Requesting service: Endoscopy History of Present Illness: Colonoscopy Past Medical History: Diagnosis Date Anxiety Chronic pain Depression Diabetes mellitus ([facility]) Disease of thyroid gland Sleep apnea Principle problems: There are no problems to display for this patient. Allergies: Allergies Allergen Reactions Effexor [Venlafaxine] GI Upset INSURANCE PROFESSIONAL/Current Medications: (Not in a hospital admission) Current [...] - normal exam Plan ASA 2 Moderate [facility] Work Phone: 09-06-2023 Note Formatting of [...] Allergies Allergen Reactions Effexor [Venlafaxine] GI Upset INSURANCE PROFESSIONAL/Current Medications: (Not in a hospital admission) Current [...] - normal exam Plan ASA 2 Moderate [facility] Work Phone: 02-24-2023 Hospital Discharg e instructions Patient Education 02/24/2023 14:38:28 5 - [facility] Post-op Instruction 03/2017 ([id number]) [facility] Post-operative Instructions PLEASE FOLLOW [facility] POST-OP INSTRUCTIONS GIVEN WATCH FOR SIGNS OF INFECTION: call the office ([phone]) if experencing any of the following: (Usually [...] on your follow up instructions. Form: 338A ([id number]) R: 01/02 Follow Up Care 08/11/2022 13:44:36 With:MATTHEW HERNÁNDEZ PA-C, Orthopedic Address: [facility] [address] [place] [address]- When:03/07/2023 10:15:00 [facility] 02-24-2023 Note Discharge Instructions Thank you for allowing [facility] to assist you with your healthcare needs. The following is important discharge information regarding your hospital visit. Your Care Team [facility] Your Diagnosis Osteoarthritis Diabetes HTN (hypertension) Sleep apnea Status post total right knee replacement What to do next Follow Up Appointments Follow Up with MATTHEW HERNÁNDEZ PA-C, Orthopedic When 03/07/2023 10:15 AM EDT Where: [facility] [address] [place] [address]- The Following Activity and Diet Have Been [...] FOR SIGNS OF INFECTION: call the office ([phone]) if experencing any of the following: (Usually [...] on your follow up instructions. Form: 338A ([id number]) R: 01/02 Additional Information VACCINATE! IT SAVES LIVES! Members of the community who have not yet received the COVID-19 vaccine and would like to receive it can visit one of [facility] vaccine clinics. There are many vaccine clinic locations within the [facility]. For locations and available times, please visit [email or web address] [email or web address] It is important to note that some COVID mobile vaccine clinics are held outdoors and may be canceled in rainy or stormy conditions. To learn more about pediatric vaccinations (ages 5-11), we invite you to visit the [employer] webpage. https://www.[employer].org/p [email or web address]-Cpwpe-Dzgbhyaiaby-Freq wfwyuw-Fleer-Tizhmpezv.html To learn more about the COVID-19 vaccine, we invite you to visit the CDC website for a list of frequently asked questions.https://www.cdc.gov/co ronavirus/2019-ncov/vaccines/faq .html [employer] Patient Portal Access Instructions: Stay connected with your healthcare team and access your personal medical information anytime with the [employer] Patient Portal. Please follow the directions below to create your [employer] account: 1.Access the email account you provided upon registration to the hospital/physician office.2.Look for an invitation email from [facility].3.Open the email and access the invitation link: Accept Invitation to [employer].4.Fill in the required morocho to create your account. To access your account, visit [employer] InternationalOneCsally. Click the blue button labeled Access [...] you will allow to register on the [facility] for access to your information. You can also access the [facility] on the [facility] otoniel. Simply click on Patient Portal and then log into your account. If you would like to receive a full copy of your medical records, please contact the [facility] Medical Records Department by calling [phone], Tuesday through Tuesday between 8 a.m. and [...] Call your local pharmacy or go to [email or web address] to find one close to you.3.Make use of household items: Use cat litter or old coffee grounds to dispose medications if other options are not available. Mix your drugs with these household products, seal them in an airtight container and throw it into the garbage. Call [facility]: [phone] to be sure your drugs can be [...] 5 - Kandis Valverde Post-op Instruction 03/2017 (64998) Medication Leaflets My discharge plan and instructions have been reviewed and explained to me and I,FLEX WOOTEN understand my current condition and have read and understand these discharge instructions. I have received a written copy of the plan/instructions. If I have questions, I am aware that I should contact my doctor. Patient/Conference Center Manager Signature: Date/Time: Relationship to Patient: Witness Name/Signature: Date/Time: [facility] 02-24-2023 Note Discharge Instructions Thank you for allowing [facility] to assist you with your healthcare needs. The following is important discharge information regarding your hospital visit. Your Care Team [facility] Your Diagnosis Osteoarthritis Diabetes HTN (hypertension) Sleep apnea Status post total right knee replacement What to do next Follow Up Appointments Follow Up with MATTHEW HERNÁNDEZ PA-C, Orthopedic When 03/07/2023 10:15 AM EDT Where: [facility] [address] [place] [address]- The Following Activity and Diet Have Been [...] as needed for pain Printed Prescription 02/24 09:07 New docusate-senna (Senokot S) 2 tab(s) by mouth Two (2) times a day Duration: 2 Days Take until first bowel movement, then as needed 02/24 09:07 New meloxicam (Mobic 7.5 mg oral [...] The extended-release form of oxycodone is for jreaxr-fev-swhps treatment of pain and should not be [...] against the law. Stop taking all other aulski-gji-vivjd opioid pain medicines when you start taking [...] may report side effects to FDA at 8-661-UKH-7540. What other drugs will affect oxycodone? You [...] may affect oxycodone. This includes prescription and shxt-swq-nrckeee medicines, vitamins, and herbal products. Not all [...] to ensure that the information provided by [employer]. ('Mult[employer]') is accurate, up-to-date, and complete, but no guarantee is made to that effect. Drug information contained herein may be time sensitive. [employer] information has been compiled for use by healthcare practitioners and consumers in the [place] and therefore [employer] does not warrant that uses outside of the [place] are appropriate, unless specifically indicated otherwise. [employer]'s drug information does not endorse drugs, diagnose patients or recommend therapy. [employer] drug information is an informational resource designed [...] effective or appropriate for any given patient. [employer] does not assume any responsibility for any aspect of healthcare administered with the aid of information [employer] provides. The information contained herein is not intended to cover all possible uses, directions, precautions, warnings, drug interactions, allergic reactions, or adverse effects. If you have questions about the drugs you are taking, check with your doctor, nurse or pharmacist. Copyright 2001-8425 [employer]. Version: 14.02. Revision Date: 09/25/2020. Education Materials [facility] Post-operative Instructions PLEASE FOLLOW [facility] POST-OP INSTRUCTIONS GIVEN WATCH FOR SIGNS OF INFECTION: call the office ([phone]) if experencing any of the following: (Usually [...] on your follow up instructions. Form: 338A (27527) R: 01/02 Additional Information VACCINATE! IT SAVES LIVES! Members of the community who have not yet received the COVID-19 vaccine and would like to receive it can visit one of [facility] vaccine clinics. There are many vaccine clinic locations within the [facility]. For locations and available times, please visit https://gettheshot.coronavirus.o cto.gov/. It is important to note that some COVID mobile vaccine clinics are held outdoors and may be canceled in rainy or stormy conditions. To learn more about pediatric vaccinations (ages 5-11), we invite you to visit the [facility] webpage. https://www.[facility].org/p ages/7930-Pcgez-Txahujkrqnm-Freq cztgnk-Gfiqs-Txycumjcn.html To learn more about the COVID-19 vaccine, we invite you to visit the CDC website for a list of frequently asked questions.https://www.cdc.gov/co ronavirus/2019-ncov/vaccines/faq .html [employer] Patient Portal Access Instructions: Stay connected with your healthcare team and access your personal medical information anytime with the [employer] Patient Portal. Please follow the directions below to create your [employer] account: 1.Access the email account you provided upon registration to the hospital/physician office.2.Look for an invitation email from [facility].3.Open the email and access the invitation link: Accept Invitation to [employer].4.Fill in the required morocho to create your account. To access your account, visit MyPronostic/GlencoeEleven JamesOneChart. Click the blue button labeled Access Patient [...] you will allow to register on the [facility] Patient Portal for access to your information. You can also access the [facility] Patient Portal on the [employer] Anywhere otoniel. Simply click on Patient Portal and then log into your account. If you would like to receive a full copy of your medical records, please contact the [facility] Medical Records Department by calling [phone], Tuesday through Tuesday between 8 a.m. and [...] Call your local pharmacy or go to [email or web address] to find one close to you.3.Make use of household items: Use cat litter or old coffee grounds to dispose medications if other options are not available. Mix your drugs with these household products, seal them in an airtight container and throw it into the garbage. Call [facility]: [phone] to be sure your drugs can be [...] CHART COPY. Signatures Patient Education Materials Hunter [facility] Valverde Post-op Instruction 03/2017 (48758) Medication Leaflets oxycodone My discharge plan and instructions have been reviewed and explained to me and I,FLEX WOOTEN understand my current condition and have read and understand these discharge instructions. I have received a written copy of the plan/instructions. If I have questions, I am aware that I should contact my doctor. Patient/Conference Center Manager Signature: Date/Time: Relationship to Patient: Witness Name/Signature: Date/Time: [facility] 02-23-2023 Note Date of Service February 23, 2023 Subjective The patient was sitting in bed upon examination. Patient denies any chest pain, shortness of breath, dizziness, lightheadedness, nausea or vomiting, or calf pain. No adverse overnight events. Pain has been controlled on medications. Patient was evaluated by physical therapy. Discharge planning is possible home health versus fdc facility. She has had a previous left total knee arthroplasty that did require fdc facility in the past. She states she went to [facility]. We do have physical therapy currently [...] possible discharge home with home health for fdc facility. Patient does have steps to manage [...] of pulmonary embolism. I have reviewed the [place] Automated Rx Reporting System (OARRS) report for [...] MATTHEW HERNÁNDEZ PA-C on 02/23/2023 07:28 AM [facility] 02-22-2023 Note ORIGINAL EXAMINATION: TWO XRAY [...] Date: 02/22/2023 1:07:27 PM Ordering Provider: [facility] 02-22-2023 Note ORIGINAL EXAMINATION: TWO XRAY VIEWS [...] Sign Date: 02/22/2023 1:07:27 PM Ordering Provider: [facility] 02-22-2023 Anesthesiology Consult note Patient: FLEX WOOTEN Age: 62 years Sex: Female : 1960 Associated Diagnoses: None Author: MARTINA GOODWIN APRN-LEI Preoperative Information Time of last food or [...] Sister Diabetes Mother Sister Procedure history: Bunionectomy ([id number]). Comments: 02/03/2023 13:48 Hansa Álvarez RN BILATERAL Plantar fasciectomy ([id number]). Comments: 02/03/2023 13:48 Hansa Álvarez RN LEFT Fusion of lumbosacral region of spine by posterior approach ([id number]). Carpal tunnel release (836361726). Comments: 02/03/2023 13:50 Hansa Álvarez RN BILATERAL Tonsillectomy and adenoidectomy (217213101). Tubal ligation (195731693). Hysterectomy (393804985). Pump, device (4120370655). Comments: 02/03/2023 13:51 Hansa Álvarez RN PAIN PUMP Total knee arthroplasty (9140640230). Comments: 02/03/2023 13:52 Hansa Álvarez RN LEFT [...] Resp Rate 17 br/min (FEB 22 09:31) JOV988 mmHg (FEB 22 09:31) DBP77 mmHg (FEB 22:) Measurements from flowsheet : Measurements 02/22/2023 9:31 EDT Height 162.6 cm Admission Weight 110 kg [facility] Body Weight 54.74 kg Admission Body Mass [...] Height 162.6 cm Admission Weight 110 kg [facility] Body Weight 54.74 kg Admission Body Mass [...] no difficulties Skin Temperature Warm Skin Description Mcgraw, Normal for ethnicity, Dry Skin Integrity Intact Mucous Membrane Color Mcgraw Skin Moisture General Dry IV Present Present [...] symptoms Safety Brochure Information Reviewed Yes Elsy Paymentus Video Viewed No Teaching Evaluation No further teaching needed Admission Note-Nursing Same Day Patient History (Modified) . Assessment and Plan [place] Society of Anesthesiologists (ASA) physical status classification: [...] in abdomen. Digitally Signed by MARTINA GOODWIN HYDROELECTRIC MACHINERY MECHANIC HELPERAngelMICROSOFT INFRASTRUCTURE CONSULTANT on 02/22/2023 10:01 AM Digitally Signed by MARTINA GOODWIN HYDROELECTRIC MACHINERY MECHANIC HELPER-MICROSOFT INFRASTRUCTURE CONSULTANT on 02/22/2023 10:02 AM Digitally Signed by MARTINA GOODWIN HYDROELECTRIC MACHINERY MECHANIC HELPER-MICROSOFT INFRASTRUCTURE CONSULTANT on 02/22/2023 10:56 AM Digitally Signed by MARTINA GOODWIN HYDROELECTRIC MACHINERY MECHANIC HELPER-MICROSOFT INFRASTRUCTURE CONSULTANT on 02/22/2023 10:59 AM [facility] 10-06-2022 Telephone encounter Note Name of caller requesting page:Matthew Phone Number of caller: [phone] ext [phone] Facility requesting page: [employer] Reason for Page: Authorization Provider paged: Dr. Mony Wright Practice Name of paged provider: [facility] Placed to #: secure chat Time Page was sent or provider contacted: 2:40pm Page Content: Matthew, a clinical nurse advisor with [facility], called to inform Dr. Tre Anderson that the authorization for DME home ventilator has been denied. He state Dr. Anderson can do a peer to peer review with their medical research associate. The acceptance date for the peer to peer is on or before 10/08/22 at 3pm. Peer to Peer can be scheduled by call Matthew at [phone] ext [phone] with reference number [id number]. Thank you. Response from Dr. Wright: I have never seen or met the patient Im not sure who needs to be contacted for this patient Reached out to [facility] management. Advised to call Matthew back. Spoke with another nurse advisor. Asked when order was placed, was advised it was 09/30/22 which was before pt had a chart with [facility]. There is another Dr. Tre Anderson at [facility]. That is where the records came from. The nurses states they will reach out to [facility]. [facility] 10-06-2022 Miscellaneous Notes Name of caller requesting page:Matthew Phone Number of caller: [phone] ext [phone] Facility requesting page: [employer] Reason for Page: Authorization Provider paged: Dr. Mony Wright Practice Name of paged provider: [facility] Placed to #: secure chat Time Page was sent or provider contacted: 2:40pm Page Content: Matthew, a clinical nurse advisor with [employer], called to inform Dr. Tre Anderson that the authorization for DME home ventilator has been denied. He state Dr. Anderson can do a peer to peer review with their medical research associate. The acceptance date for the peer to peer is on or before 10/08/22 at 3pm. Peer to Peer can be scheduled by call Matthew at [phone] ext [phone] with reference number [id number]. Thank you. Response from Dr. Wright: I have never seen or met the patient Im not sure who needs to be contacted for this patient Reached out to [facility] management. Advised to call Matthew back. Spoke with another nurse advisor. Asked when order was placed, was advised it was 09/30/22 which was before pt had a chart with [facility]. There is another Dr. Tre Anderson at [facility]. That is where the records came from. The nurses states they will reach out to [facility]. documented in this encounter [facility] 06-23-2022 Miscellaneous Notes I left a message for Tessie at [employer] regarding their addendum request. If they have Dr. Aggarwal' note, they have all the answers they need. Not sure if they have the patient's clinic note. Mendy Adams RN documented in this encounter [facility] 05-19-2022 Note HNO ID: [id number] Author: Nicolás Aggarwal MD Service: ? Author [...] HISTORY Diagnosis Date DVT (deep venous thrombosis) ([facility]) 2013 post knee replacement Fibromyalgia Hemorrhage of gastrointestinal tract, unspecified Hemorrhage of rectum and anus Internal hemorrhoids without mention of complication Other forms of migraine Other unspecified back disorder Pulmonary embolism ([facility]) 2013 PAST SURGICAL HISTORY Procedure Laterality Date [...] Lungs: No H (more content not included)... [facility] 05-19-2022 Note HNO ID: [id number] Author: RT Charley(R) Service: Radiology Author Type: [...] RT Charley(R) May 19, 2022 10:16 AM [facility] 05-19-2022 History of Presen t illness [...] states that she is in pain today / she states the pain feels like a [...] HISTORY Diagnosis Date DVT (deep venous thrombosis) ([facility]) 2014 post knee replacement Fibromyalgia Hemorrhage of gastrointestinal tract, unspecified Hemorrhage of rectum and anus Internal hemorrhoids without mention of complication Other forms of migraine Other unspecified back disorder Pulmonary embolism ([facility]) 2014 PAST SURGICAL HISTORY Procedure Laterality Date [...] X-Rays The patient's pertinent medical history from [facility] has been reviewed. PFOMIS forms have [...] records. This note was partially generated using [employer] voice recognition system, and there may be [...] Nicolás Aggarwal M.D. documented in this encounter [facility] 05-19-2022 History of Presen t illness [...] 2022 10:16 AM documented in this encounter [facility] 02-07-2015 Miscellaneous Notes PSR: Please call pt for PROFESSOR OF ARCHAEOLOGY Yearly and mammogram. Thanks. Patient received letter for annual mammogram, please place order and have hoop flaring machine operator helper call her. Patient prefers AM appts. documented in this encounter [facility] Evaluation + Plan note Future Appointments [facility] Evaluation note Diagnosis Other screening mammogram [facility] this [facility] noteNo assessment information availableWSamaritan North [facility] Center Work Phone: Evaluation note* Diagnosis Pes planus of left foot- Primary Primary osteoarthritis of left foot Diabetic neuropathy, painful (HCC) Type II or unspecified type diabetes mellitus with neurological manifestations, not stated as uncontrolled Acquired valgus deformity of left ankle [facility] Diagnosis Onset Date Resolution Status Diabetes chronic High cholesterol chronic Hypertension chronic Obesity chronic Diabetes chronic Hypertension chronic Obesity chronic [facility] Work Phone: Evaluation note* Diagnosis Onset Date Resolution Status NIEVES (dyspnea on exertion) re solved Hypoxia resolved [facility] Work Phone: Evaluation note* Diagnosis Acquired valgus deformity of left ankle- Primary [facility] this [facility]* Diagnosis Pain Generalized pain documented in this encounter [facility] note* Diagnosis Diarrhea, unspecified type- Primary documented in this encounter [facility] Work Phone: Evaluation note* Diagnosis Diarrhea, unspecified type- Primary documented in this encounter [facility] Work Phone: Hospital course Narrative No data available for this section [facility] Hospital Discharge instructions No data available for this section [facility] Progress note No data available for this section [facility] [employer] for referral (narrative)* Diagnostic Procedure Only (Routine) - Pending Review Specialty Diagnoses / Procedures Referred By Kelton t Referred To Contact XR IMAGING Diagnoses Acquired valgus deformity of left ankle Procedures XR ANKLE GENERAL 3V AP/LAT/OBL LEFT RADEX ANKLE COMPLETE MINIMUM 3 VIEWS Nicolás [place] [address] [place] [address] Xr Imaging Referral ID Status Reason Start Date Expiration Date Visits Requested Visits Authorized [id number] Pending Review Auto-Generat ed Referral 09/28/2022 10/27/2023 [address] [facility] for referral (narrative)* Diagnostic Procedure Only (Routine) - Closed Specialty Diagnoses / Procedures Referred By Kelton rincon Referred To Contact XR IMAGING Diagnoses Pain Procedures XR FOOT GENERAL 3V AP/LAT/OBL LEFT RADEX FOOT COMPLETE MINIMUM 3 VIEWS Nicolás [place] [address] [place] [address] [place] [address] Referral ID Status Reason Start Date Expiration Date V isits Requested Visits Authorized [id number] Closed Auto-Generate d Referral 05/04/2022 06/03/2023 1 1 [facility] Summary Purpose Family History No Family [...] No November 10, 2021 11:41am Power of Rope Cleaner No November 10 11:41am Advance Directive Response Recorded Date/ Time Advance Directives Yes August 01, 2015 5:05pm Living Will No January 25, 2022 2 :05pm Power of Rope Cleaner No January 25, 2022 2:05pm Advance Directive Response Recorded Date/ Time Advance Directives Yes August 01, 2015 5:05pm Living Will No January 30, 2022 1 1:58pm Power of Rope Cleaner No January 30, 2022 11:58pm Advance Directive Response Recorded Date/ Time Advance Directives Yes April 2:05pm Living Will No May 19, 2022 2:05pm Power of Rope Cleaner No April 2:05pm Advance Directive Response Recorded Date/ Time Advance Directives Yes April 2:05pm Living Will No September 16 5:52pm Power of Rope Cleaner No September 16, 2022 5:52pm Latest Code [...] RULE OUT PE SOB HYPERGLYCEMIA Chief Complaint reading assistant, 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 Reason for Visit Diabetes High cholesterol Hypertension Obesity Diabetes Hypertension Obesity Chief Complaint 3 M FU RULE OUT DVT HYPOXIA HYPOXIA HYPOXIA SOB Reason for Visit NIEVES (dyspnea on exer tion) Hypoxia Reason for Referral Specialty Diagnoses / Procedures Referred By Kelton rincon Referred To Contact Gastroenterology Diagnoses Diarrhea, unspecified type Procedures Colonoscopy Screening; Average Risk Patient NH COLONOSCOPY FLX DX W/COLLJ SPEC WHEN PFRMD NH COLON CA SCRN NOT HI RSK IND NH COLORECTAL SCRN; HI RISK IND NH COLONOSCOPY W/BIOPSY SINGLE/MULTIPLE NH COLSC FLX W/RMVL OF TUMOR POLYP LESION SNARE TQ NH COLSC FLX W/REMOVAL LESION BY HOT BX FORCEPS Renita Mijares, DO [address] [facility] [address] [place] [address] Referral ID Status Reason Start Date Expiration Date V isits Requested Visits Authorized [id number] Authorized 07/26/2023 07/25/2024 1 1 Additional Source Comments INFORMATION SOURCE (unrecogn ized section and content) DATE CREATED AUTHOR 05/09/2019 [facility] DATE CREATED AUTHOR AUTHOR'S ORGANIZ ATION 05/09/2019 [facility] DATE CREATED AUTHOR AUTHOR'S ORGANIZ ATION 02/13/2020 [facility] DATE CREATED AUTHOR AUTHOR'S ORGANIZ ATION 05/27/2021 [facility] DATE CREATED AUTHOR AUTHOR'S ORGANIZ ATION 06/26/2022 [facility] DATE CREATED AUTHOR AUTHOR'S ORGANIZ ATION 03/07/2023 [facility] DATE CREATED AUTHOR AUTHOR'S ORGANIZ ATION 09/08/2023 [facility] DATE CREATED AUTHOR AUTHOR'S ORGANIZ ATION 11/07/2023 [facility] DATE CREATED AUTHOR AUTHOR'S ORGANIZ ATION 03/25/2025 [facility] Source Comments (unrecognize d section and content) In the event this informatio n is protected by the Federal Confidentiality of Alcohol and Drug Abuse Patient Records regulations: The Federal rules restrict any use of the information to criminally investigate or prosecute any alcohol or drug abuse patient.[facility] HospitalIn the event this information is protected by the Federal Confidentiality of Alcohol and Drug Abuse Patient Records regulations: The Federal rules restrict any use of the information to criminally investigate or prosecute any alcohol or drug abuse patient.[facility] HospitalIn the event this information is protected by the Federal Confidentiality of Alcohol and Drug Abuse Patient Records regulations: The Federal rules restrict any use of the information to criminally investigate or prosecute any alcohol or drug abuse patient.[facility] HospitalIn the event this information is protected by the Federal Confidentiality of Alcohol and Drug Abuse Patient Records regulations: The Federal rules restrict any use of the information to criminally investigate or prosecute any alcohol or drug abuse patient.[facility] HospitalIn the event this information is protected by the Federal Confidentiality of Alcohol and Drug Abuse Patient Records regulations: The Federal rules restrict any use of the information to criminally investigate or prosecute any alcohol or drug abuse patient.[facility] Reason for Visit (unrecogniz ed section and content) Reason Onset Date Comments Yearly Exam With Mammogram 02/07/2015 Reason Comments New Reason Onset Date Comments Question 06/23/2022 Reason Comments Radio Gen RMP Specialty Diagnoses / Procedures Referred By Contac t Referred To Contact XR IMAGING Diagnoses Pain Procedures XR FOOT GENERAL 3V AP/LAT/OBL LEFT RADEX FOOT COMPLETE MINIMUM 3 VIEWS Nicolás [place] [address] [place] [address] [place] [address] Referral ID Status Reason Start Date Expiration Date V isits Requested Visits Authorized [id number] Closed Auto-Generate d Referral 05/04/2022 06/03/2023 1 1 Specialty Diagnoses / Procedures Referred By Kelton t Referred To Contact Diagnoses Diarrhea, unspecified Procedures NH COLONOSCOPY FLX DX W/COLLJ SPEC WHEN PFRMD NH COLONOSCOPY W/BIOPSY SINGLE/MULTIPLE NH COLSC FLX W/RMVL OF TUMOR POLYP LESION SNARE TQ NH COLSC FLX W/REMOVAL LESION BY HOT BX FORCEPS [id number] [address] [place], [place] [phone] [phone] Referral ID Status Reason Start Date Expiration Date Visits Re quested Visits Authorized [id number] 1 1 Reason Onset Date Comments Referral [...] Care Teams (unrecognized sec tion and content) Rn Gastroenterology Relationship Specialty Start Date End Date Rica Padgett DO [address] [place], [place] [id number] PCP - General Family Medicine 04/09/19 Rn Gastroenterology Relationship Specialty Start Date End Date Rica Padgett DO [address] [place], [place] [phone] PCP - General Family Medicine 04/09/19 Team Status: Active Member Role Status Dates Dr. Rica Padgett DO Family Provider Active Dr. Rica Padgett DO Primary Care Provider Active Team Status: Inactive Member Role Status Dates Dr. Rica Padgett DO Primary Care Provider, Referring P bryn Active SOLO BarriosC Attending Provider Active Team [...] MD Attending Provider, Maxine james Provider Active Rn Gastroenterology Relationship Specialty Start Date End Date Rica Padgett DO [address] [place] [address] PCP - General Family Medicine 04/09/19 Rn Gastroenterology Relationship Specialty Start Date End Date Rica Padgett DO [address] [place] [address] PCP - General Family Medicine 04/09/19 Rn Gastroenterology Relationship Specialty Start Date End Date Rica Padgett DO [address] [place] [phone] PCP - General Family Medicine 09/06/23 Rn Gastroenterology Relationship Specialty Start Date End Date Rica Padgett DO [address] [place] [phone] PCP - General Family Medicine 09/06/23 Rn Gastroenterology Relationship Specialty Start Date End Date Chip Erin [address] [place], [place] [phone] PCP - General Family Medicine 10/01/22 Rn Gastroenterology Relationship Specialty Start Date End Date Erin Saunders [address] [place], [place] [phone] PCP - General Family Medicine 10/01/22 FOR [...] BE BASED ON THE PRIMARY CLINICAL RECORDS. Process Relations [facility]. provides no warranty or guarantee of the accuracy or completeness of information in this document.
[2025-03-25] MEDS: Cholecalciferol (VIT D3) 25 MCG TABLET (1,000 UNITS) PO (08:33)
--- NOTE | 2025-03-25 10:45 | CASEMGMT ---
SAM RUSH chart review: Patient was admitted 03/15-03/18/25 for acute cystitis, polypharmacy, and toxic metabolic encephalopathy. See assessment from 03/16/25. Patient was discharged to home with family support and follow-up plans in plans in place. Patient returned to [facility] ED on 03/25/25 for SOB. Patient was admitted for CHF exacerbation. Patient had had a 6kg weight gain since last admission. Patient was hypoxic at 83% room air and required 2lpm NC. SAM RUSH in to patient's room to discuss readmission and discharge needs. Patient states she was taking medications as prescribed. Patient attended appt with trapper bird Dr. Lind last week. Patient was to see PCP today, SAM RUSH encouraged patient to call PCP and reschedule for next week. Patient has home oxygen at 4lpm at [facility] into [facility]. Will monitor for increase in home oxygen at discharge. Patient wishes to discharge home, denies need for HHC or outpatient therapy at this time. SAM RUSH encouraged patient to weigh self daily to monitor for fluid retention. SAM RUSH educated patient on the importance of low sodium diet. Patient states magistrate assistant had provided resources. Patient had no further needs or concerns at this time. Patient had no further questions. CM will continue to follow this patient and plan for a safe discharge.
--- NOTE | 2025-03-25 11:43 | PCM.PROGNOTE ---
Subjective Subjective Patient seen and examined. He says he is feeling much better today. Breathing much improved. She is on 4L of oxygen which is chronic. Review of systems is otherwise negative. Objective Data Objective Data Vital Signs: Vital Signs Temp Pulse Resp BP Pulse Ox O2 Del Method O2 Flow Rate 98.5 F 59 L 18 159/67 H 96 Nasal Cannula 4 03/25/25 08:00 03/25/25 08:00 03/25/25 08:00 03/25/25 08:00 03/25/25 08:00 03/25/25 09:10 03/25/25 11:06 Oxygen Flow Rate (L/min) 4 Oxygen Delivery Method Nasal Cannula Weight: 271 lb 9.752 oz Body Mass Index (BMI) 46.6 Intake & Output: Intake and Output for Last 24 Hours 03/23/25 03/24/25 03/25/25 23:59 23:59 23:59 Intake Total 350 / 350 Balance 350 / 350 Lab / Micro Data 03/24/25 22:43 03/24/25 22:43 Labs: Laboratory Results - last 24 hr 03/24/25 22:43: WBC 8.1, RBC 4.37, Hgb 12.9, Hct 39.6, MCV 90.6, MCH 29.5, MCHC 32.6, RDW Std Deviation 45.9 H, RDW Coeff of Mouna 13.9, Plt Count 227, MPV 9.4, Immature Gran % (Auto) 0.500, Neut % (Auto) 67.8, Lymph % (Auto) 23.4, Gila % (Auto) 5.6, Eos % (Auto) 2.2, Baso % (Auto) 0.5, Absolute Neuts (auto) 5.5, Absolute Lymphs (auto) 1.89, Nucleated RBC % 0, D-Dimer Quant (PE/DVT) 0.76 H*, Sodium 141, Potassium 3.7, Chloride 102, Carbon Dioxide 26.4, Anion Gap 12, BUN 8, Creatinine 0.72, Estim Creat Clear Calc 89.83, Est GFR (MDRD) Non-Af 93, BUN/Creatinine Ratio 10.6, Glucose 200 H, Lactic Acid 1.8, Calcium 8.9, Total Bilirubin 0.42, AST 83 H, ALT 114 H, Alkaline Phosphatase 110 H, Troponin T High Sens 7, NT pro BNP II 556, Total Protein 6.6, Albumin 3.7, Globulin 2.9, Albumin/Globulin Ratio 1.3, Lipase 33 03/25/25 08:25: POC Glucose 235 H Radiography Diagnostic Testing: Radiology Impression Chest X-Ray 03/24/25 23:00 IMPRESSION: Under aerated lungs. Tiny bilateral effusions. Interstitial lung disease which appears chronic. Reading Location: [facility] Chest/Abdomen/Pelvis CTA 03/24/25 23:17 IMPRESSION: Bilateral pneumonia. Possible hepatitis. Reading Location: [facility] Rhythm Strip Rhythm Strip: Sinus Rhythm Rate: 65 Ectopy: None Physical Exam Const alert, oriented x3 and no apparent distress Constitutional Narrative: Class III obesity General Appearance: cooperative HEENT normocephalic, head/scalp atraumatic, moist oral mucous membranes and oropharynx normal Eyes PERRL and EOMs intact bilaterally Neck no lymphadenopathy and supple Lymph Lymphatic: no lymphadenopathy noted and no lymphedema noted Resp Resp Narrative: mildly diminished breath sounds bibasally, no wheezes or crackles. On 4L of oxygen by nasal canula Cardio regular rate, regular rhythm, S1 normal heart sound, S2 normal heart sound and no murmurs GI normal to inspection, nondistended, normoactive bowel sounds, soft to palpation, non-tender and non-distended Extremity normal capillary refill and no clubbing, cyanosis or edema General Extremity: no tenderness to palpation of joints or extremities Skin General Skin Exam: no breakdown Neuro CN's II-XII intact bilaterally, no focal motor deficits and no sensory deficits noted Motor Exam: strength 5/5 throughout Psych thought process normal, cooperative and affect normal Appearance: appropriate Assessment & Plan Assessment/Plan (1) (HFpEF) heart failure with preserved ejection fraction: (2) Hypoxemia: PLAN: Plan #Acute HFpEF Admitted with a complaint of shortness of breath. Her weight had gone up 6 kg since [address] chest showed bilateral pleural effusions. She has known EF of 60% from echo done in November 2024. Repeat 2D echo ordered. She is being diuresed with IV Lasix. Monitor intake and output. #Type 2 diabetes mellitus: On Lantus. Sliding scale. Checks ACHS. #Hypothyroidism: On Synthroid #Chronic pain: On hydromorphone pump. #Anxiety: On lorazepam #Class III obesity: BMI is 46.6. Complicates acute care, expected recovery and prognosis. Charges/Coding Visit Charges Inpatient E&M: 68888 Subs Hosp L2
[2025-03-25] MEDS: hydrOXYzine PAM 25 MG Capsule PO (21:03)
[2025-03-25] MEDS: Insulin Glargine-YFGN 100 UNIT/ML Pen 52 UNIT SC (21:06)
[2025-03-26 02:45] VITALS: BP 142/76; PULSE 59; RESP 18; TEMP 36.7; O2SAT 98
[2025-03-26 05:10] VITALS: BMI 44.4
[2025-03-26 06:05] LABS: Hematocrit 43.4 % (37-47); Hemoglobin 14.0 g/dL (12.0-15.0); Immature Granulocytes Count 0.030 X10^3/uL (0.0-0.0); Mean Corp Hgb Conc 32.3 g/dL (32-36); Mean Corpuscular Volume 91.6 fL (81-99); Mean Platelet Vol. 9.5 fl (6.2-12.0); NRBC Flagged by Analyzer 0 % (0-5); Platelet Count 256 K/mm3 (150-450); RBC Distribution Width CV 13.8 % (11.6-14.6); RBC Distribution Width SD 46.2 fl (35.1-43.9); Red Blood Count 4.74 M/mm3 (4.2-5.4); White Blood Count 8.5 K/mm3 (4.4-11.0)
[2025-03-26 06:33] LABS: Anion Gap 14 (5-15); BUN 9 mg/dL (4-19); BUN/Creat Ratio 11.1 RATIO (10-20); Calcium,Total 9.5 mg/dL (7.6-11.0); Carbon Dioxide 30.6 mmol/L (21.0-32.0); Chloride 96 mmol/L (98-108); Estimated Creatinine Clearance 87.21 ml/min (50-250); Glucose 190 mg/dL (70-99); Potassium 3.3 mmol/L (3.3-5.1)
[2025-03-26 08:00] VITALS: O2SAT 90
[2025-03-26 08:05] VITALS: BP 153/85; PULSE 71; RESP 16; TEMP 36.4; O2SAT 90
[2025-03-26] MEDS: Cholecalciferol (VIT D3) 25 MCG TABLET (1,000 UNITS) PO (08:54)
[2025-03-26 09:29] VITALS: O2SAT 86; O2SAT 90; O2SAT 92
[2025-03-26 14:00] VITALS: BP 143/80; PULSE 57; RESP 18; TEMP 36.2; O2SAT 95
--- NOTE | 2025-03-26 14:11 | PCM.DC.SUM ---
Providers Date of Admission: 03/25/25 Date of Discharge: 03/26/25 Primary Care Physician: Dr. Rica Padgett DO Reason For Visit: CHF EXACERBATION Diagnosis Discharge Diagnosis (1) (HFpEF) heart failure with preserved ejection fraction: Status: Acute Code(s): I50.30 - Unspecified diastolic (congestive) heart failure (2) Hypoxemia: Status: Acute Code(s): R09.02 - Hypoxemia Plan #Acute HFpEF Admitted with a complaint of shortness of breath. Her weight had gone up 6 kg since [address] chest showed bilateral pleural effusions. She has known EF of 60% from echo done in November 2024. Repeat 2D echo ordered. She is being diuresed with IV Lasix. Monitor intake and output. #Type 2 diabetes mellitus: On Lantus. Sliding scale. Checks ACHS. #Hypothyroidism: On Synthroid #Chronic pain: On hydromorphone pump. #Anxiety: On lorazepam #Class III obesity: BMI is 46.6. Complicates acute care, expected recovery and prognosis. Medications at Discharge Home Medications omeprazole 40 mg capsule,delayed release 40 mg PO DAILY GERD 08/30/13 levothyroxine 50 mcg tablet 50 mcg PO DAILY thyroid 10/21/17 atenolol 25 mg tablet 25 mg PO DAILY heart 05/18/19 methotrexate sodium 2.5 mg tablet 20 mg PO FR fibromyalgia 08/19/20 leucovorin calcium 10 mg tablet 5 mg PO FR supplement 12/08/20 cholecalciferol (vitamin D3) 25 mcg (1,000 unit) capsule 25 mcg PO DAILY supplement 09/13/22 clonidine HCl 0.1 mg tablet 0.1 mg PO Q8H PRN PRN Anxiety/tremors #1 TAB 03/03/24 folic acid 1 mg tablet 1 mg PO BREAKFAST supplement #30 tabs 03/03/24 oxycodone-acetaminophen 5 mg-325 mg tablet 1 tab PO BID pain 07/27/24 lancets-blood glucose test strips-pen needles with gauze kit #1 ea 07/28/24 gabapentin 100 mg capsule 100 mg PO TID nerve pain 90 days #270 caps 09/03/24 blood-glucose sensor (FreeStyle Prema 3 Plus Sensor device) #6 ea 09/21/24 insulin glargine-yfgn 100 unit/mL (3 mL) subcutaneous pen 52 unit (0.52 mL) subcut QHS diabetes #5 pens 11/12/24 escitalopram oxalate 20 mg tablet 20 mg PO DAILY for depressive disorder #90 TABLETS 03/05/25 fenofibrate nanocrystallized 48 mg tablet 48 mg PO DAILY cholesterol 30 days #30 tabs 03/18/25 hydroxyzine pamoate 50 mg capsule 25 mg (1/2 x 50 mg) PO QHS mood #30 caps 03/18/25 insulin lispro 100 unit/mL subcutaneous pen (Humalog KwikPen (U-100) Insulin) 25 unit (0.25 mL) subcut TIDWMEAL diabetes #15 mL 03/18/25 lorazepam 0.5 mg tablet 0.5 mg PO TID #0 tabs 03/18/25 tizanidine 4 mg tablet 2 mg (1/2 x 4 mg) PO TID PRN Muscle spasm 3 days #0 tabs 03/18/25 trazodone 100 mg tablet 50 mg (1/2 x 100 mg) PO QHS mood 30 days #0 tabs 03/18/25 ropinirole 1 mg tablet 1 mg PO BID restless legs 03/25/25 furosemide 40 mg tablet (Lasix) 40 mg PO DAILY #30 tabs 03/26/25 levofloxacin 750 mg tablet 750 mg PO DAILY@0600 #4 tabs 03/26/25 potassium chloride 20 mEq tablet,extended release(part/cryst) (Klor-Con M) 20 meq PO DAILY #30 tabs 03/26/25 Hospital Course Operations None Procedures 2-D Echocardiogram Summary of Care Provided Minutes Spent on Discharge: 48 Hospital Course: Patient is a 64-year-old female with past medical history as outlined was admitted through the ED with a complaint of shortness of breath on 03/25/2025. She had been admitted and managed for UTI and discharged on 18 March 2025. On admission this time the ED CT of the chest done showed pleural effusions as well as concern for pneumonia. She was started on IV Zosyn. With ambulation her pulse ox dropped to 83% on room air so she was admitted to be managed for hypoxia due to probable pneumonia versus heart failure. Because she did not have any fever or cough she was still continued on the antibiotics. She was started with diuresis with IV Lasix. Her shortness of breath did improve and she was weaned down on the oxygen. She had 2D echo which showed EF of 65% with no regional wall motion abnormalities noted and normal left ventricular size. She felt much better and was discharged on 03/26/2025. Since she was still requiring 2 L of oxygen and decision made to start patient on p.o. Levaquin 750 mg daily empirically to treat for presumptive pneumonia based on the chest CT findings. She was discharged on 2 L of oxygen and is follow-up with her primary care doctor within 1 to 2 weeks. Patient seen and examined prior to discharge. She had no active complaints and had an uneventful night. Review of systems otherwise negative. Labs and vitals reviewed. Home medications reviewed and reconciled. Physical Exam Const alert, oriented x3 and no apparent distress Constitutional Narrative: Class III obesity General Appearance: cooperative and comfortable HEENT normocephalic, head/scalp atraumatic, hearing grossly normal bilaterally, moist oral mucous membranes and oropharynx normal Mouth: oral and palatal mucosa normal Eyes PERRL and EOMs intact bilaterally Neck no lymphadenopathy and supple Neck Narrative: No thyromegaly. Lymph Lymphatic: no lymphadenopathy noted and no lymphedema noted Resp Resp Narrative: mildly diminished breath sounds bibasally, no wheezes or crackles. On room air Cardio regular rate, regular rhythm, S1 normal heart sound, S2 normal heart sound and no murmurs GI normal to inspection, nondistended, normoactive bowel sounds, soft to palpation, non-tender and non-distended GI Narrative: Obese but soft and nontender. Extremity normal capillary refill and no clubbing, cyanosis or edema Extremity Narrative: lower extremity edema has resolved General Extremity: no tenderness to palpation of joints or extremities Skin Skin Narrative: Venous stasis changes to right lower extremity. General Skin Exam: no breakdown Neuro CN's II-XII intact bilaterally, moves all extremities, no focal motor deficits and no sensory deficits noted Sensorium / Orientation: awake Speech: speech normal Motor Exam: strength 5/5 throughout Psych thought process normal, cooperative and affect normal Appearance: appropriate Weight / BMI Weight Weight: 259 lb 4.218 oz Body Mass Index (BMI) 44.4 ABG / Lab / Microbiology Data 03/26/25 05:25 03/26/25 05:25 Laboratory: Laboratory Results - last 24 hr 03/25/25 16:15: POC Glucose 172 H 03/25/25 21:01: POC Glucose 214 H 03/26/25 05:25: WBC 8.5, RBC 4.74, Hgb 14.0, Hct 43.4, MCV 91.6, MCH 29.5, MCHC 32.3, RDW Std Deviation 46.2 H, RDW Coeff of Mouna 13.8, Plt Count 256, MPV 9.5, Immature Gran % (Auto) 0.400, Neut % (Auto) 57.1, Lymph % (Auto) 33.3, [place] % (Auto) 6.6, Eos % (Auto) 2.1, Baso % (Auto) 0.5, Absolute Neuts (auto) 4.8, Absolute Lymphs (auto) 2.81, Nucleated RBC % 0, Sodium 141, Potassium 3.3, Chloride 96 L, Carbon Dioxide 30.6, Anion Gap 14, BUN 9, Creatinine 0.78, Estim Creat Clear Calc 87.21, Est GFR (MDRD) Non-Af 84, BUN/Creatinine Ratio 11.1, Glucose 190 H, Calcium 9.5 03/26/25 08:04: POC Glucose 187 H 03/26/25 11:26: POC Glucose 249 H Radiography Diagnostic Testing: Radiology Impression Echocardiogram 03/25/25 04:29 Interpretation Summary Normal LV size. The estimated ejection fraction is 65 %. No regional wall motion abnormalities noted. The study was technically limited. Contrast injection was performed. Ordering Physician: Tre Anderson Referring Physician: Rica Padgett Performed By: Bryon Orta RCS D/C Instructions Discharge Activity: Return to Normal Activity Weight Bearing Status: Weight bearing as tolerated Call your doctor if you observe: Fever of 101 or Higher, Shortness of breath, Dizziness, Swelling in the ankles and Chest pain DC O2, CPAP, BIPAP Needs Home O2 Discharge instructions: Yes Type of respiratory needs?: Oxygen Oxygen frequency: Continuous Continuous oxygen liters per minute: 2 DC home with Oxygen: Yes Home O2 MD Review: I have reviewed the oxygen testing, and the patient qualifies for home oxygen equipment and portability. The patient is mobile in the home and the community. Meaningful Use Info Meaningful Use Meaningful Use Diagnoses (Choose all that apply): CHF CHF BOBBY/ARB ordered at discharge?: No Reason BOBBY/ARB not ordered?: Not indicated Documented LVEF (%): 65 Discharge Plan Admission Admit Date/Time: 03/25/25 03:34 Primary Reason for Your Visit: acute heart failure Attending Provider: Autumn Hernandez Primary Care Provider: Rica Padgett Consulting Providers: Tre Anderson Instructions Patient Instructions: Coping with Heart Failure Additional Instructions / Restrictions: use 2L of oxygen by nasal canula Discharge Orders/Prescriptions Prescriptions: New levofloxacin 750 mg Tablet 750 mg PO DAILY@0600 Qty: 4 0RF furosemide [Lasix] 40 mg tablet 40 mg PO DAILY Qty: 30 2RF potassium chloride [Klor-Con M20] 20 mEq tablet,ER particles/crystals 20 meq PO DAILY Qty: 30 1RF Continued methotrexate sodium 2.5 mg tablet 20 mg PO FR cholecalciferol (vitamin D3) 25 mcg (1,000 unit) capsule 25 mcg PO DAILY gabapentin 100 mg capsule 100 mg PO TID 90 Days Qty: 270 2RF omeprazole 40 MG capsule 40 mg PO DAILY Patient Comments: ACID REFLEX levothyroxine 50 MCG tablet 50 mcg PO DAILY atenolol 25 MG tablet 25 mg PO DAILY leucovorin calcium 10 MG tablet 5 mg PO FR folic acid 1 mg Tablet 1 mg PO BREAKFAST Qty: 30 0RF clonidine HCl 0.1 mg tablet 0.1 mg PO Q8H PRN PRN (Reason: Anxiety/tremors) Qty: 1 0RF Patient Comments: take 1 tablet by mouth three times a day if needed for anxiety or TREMOR(S) oxycodone-acetaminophen 5-325 mg tablet 1 tab PO BID (DME) lancet-gluc [id number] Kit See Rx Instructions .Route Qty: 1 0RF Rx Instructions: As directed fenofibrate nanocrystallized 48 mg Tablet 48 mg PO DAILY 30 Days Qty: 30 0RF lorazepam 0.5 mg Tablet 0.5 mg PO TID Qty: 0 0RF Rx Instructions: Been down 0.5 mg 3 times daily for 3 days and then 0.25 mg 3 times daily for 3 days and then 0.25 mg twice daily for 3 days and 0.2 mg once daily for 3 days and then stop under guidance of PCP tizanidine 4 mg tablet 2 mg PO TID PRN (Reason: Muscle spasm) 3 Days Qty: 0 0RF hydroxyzine pamoate 50 mg capsule 25 mg PO QHS Qty: 30 2RF trazodone 100 MG tablet 50 mg PO QHS 30 Days Qty: 0 0RF Patient Comments: DEPRESSION insulin lispro [Humalog KwikPen Insulin] 100 unit/mL insulin pen 25 unit subcut TIDWMEAL Qty: 15 3RF Rx Instructions: Hold if glucose less than 130 mg/dl ropinirole 1 mg tablet 1 mg PO BID (DME) FreeStyle Prema 3 Plus Sensor Device See Rx Instructions .Route Qty: 6 1RF Rx Instructions: As directed insulin glargine-yfgn 100 unit/mL (3 mL) insulin pen 52 unit subcut QHS Qty: 5 1RF escitalopram oxalate 20 mg tablet 20 mg PO DAILY Qty: 90 1RF Referrals / Follow Up: Rica Padgett DO [Primary Care Provider] - Within 1 Week Disposition Disposition (needs filled in before D/C Order can be placed): Home, Self Care Charges/Coding Visit Charges Inpatient E&M: 71588 Disch Hosp >30min
--- NOTE | 2025-03-26 14:21 | CASEMGMT ---
Patient has order for discharge. Patient requires increase in home oxygen. Script received and sent to [facility] with arrangements for tank to be delivered to patient's room. SAM CM in to discuss discharge with patient. RN ADRI updated patient regarding increase in home oxygen and arrangements for oxygen tank to be delivered to patient's room. Patient denies further needs or help at discharge. Patient had no further questions or concerns. SAM RUSH updated discharge plan.
[2025-03-26] MEDS: Rizatriptan Benzoate 5 MG Tablet PO (14:38)
--- NOTE | 2025-03-26 14:48 | PHA.DC_ITS ---
Pharmacy [facility] Counseling Pharmacy Service has performed discharge medication reconciliation and counseling for this patient. 1. FUROSEMIDE 40MG PO DAILY 2. LEVOFLOXACIN 750MG PO DAILY X 4 DAYS 3. POTASSIUM CHLORIDE 20MEQ PO DAILYCM The patient's discharge medication list was reviewed for discrepancies and discrepancies were resolved. The patient was counseled on the following discharge medications and changes in medications for homegoing were reviewed. The Reason for Use, instructions for use, and potential side effects were reviewed for all new medications. The patient's questions regarding all of their medications were answered. The patient was able to verbally demonstrate an understanding of their discharge medications. Medications at Discharge Home Medications omeprazole 40 mg capsule,delayed release 40 mg PO DAILY GERD 08/30/13 levothyroxine 50 mcg tablet 50 mcg PO DAILY thyroid 10/21/17 atenolol 25 mg tablet 25 mg PO DAILY heart 05/18/19 methotrexate sodium 2.5 mg tablet 20 mg PO FR fibromyalgia 08/19/20 leucovorin calcium 10 mg tablet 5 mg PO FR supplement 12/08/20 cholecalciferol (vitamin D3) 25 mcg (1,000 unit) capsule 25 mcg PO DAILY supplement 09/13/22 clonidine HCl 0.1 mg tablet 0.1 mg PO Q8H PRN PRN Anxiety/tremors #1 TAB 03/03/24 folic acid 1 mg tablet 1 mg PO BREAKFAST supplement #30 tabs 03/03/24 oxycodone-acetaminophen 5 mg-325 mg tablet 1 tab PO BID pain 07/27/24 lancets-blood glucose test strips-pen needles with gauze kit #1 ea 07/28/24 gabapentin 100 mg capsule 100 mg PO TID nerve pain 90 days #270 caps 09/03/24 blood-glucose sensor (FreeStyle Prema 3 Plus Sensor device) #6 ea 09/21/24 insulin glargine-yfgn 100 unit/mL (3 mL) subcutaneous pen 52 unit (0.52 mL) subcut QHS diabetes #5 pens 11/12/24 escitalopram oxalate 20 mg tablet 20 mg PO DAILY for depressive disorder #90 TABLETS 03/05/25 fenofibrate nanocrystallized 48 mg tablet 48 mg PO DAILY cholesterol 30 days #30 tabs 03/18/25 hydroxyzine pamoate 50 mg capsule 25 mg (1/2 x 50 mg) PO QHS mood #30 caps 03/18/25 insulin lispro 100 unit/mL subcutaneous pen (Humalog KwikPen (U-100) Insulin) 25 unit (0.25 mL) subcut TIDWMEAL diabetes #15 mL 03/18/25 lorazepam 0.5 mg tablet 0.5 mg PO TID #0 tabs 03/18/25 tizanidine 4 mg tablet 2 mg (1/2 x 4 mg) PO TID PRN Muscle spasm 3 days #0 tabs 03/18/25 trazodone 100 mg tablet 50 mg (1/2 x 100 mg) PO QHS mood 30 days #0 tabs 03/18/25 ropinirole 1 mg tablet 1 mg PO BID restless legs 03/25/25 furosemide 40 mg tablet (Lasix) 40 mg PO DAILY #30 tabs 03/26/25 levofloxacin 750 mg tablet 750 mg PO DAILY@0600 #4 tabs 03/26/25 potassium chloride 20 mEq tablet,extended release(part/cryst) (Klor-Con M) 20 meq PO DAILY #30 tabs 03/26/25
--- NOTE | 2025-03-28 13:15 | CASEMGMT ---
Pt's daughter calls this RN CM back stating that the pt is not doing well. Daughter states that the pt's BP and oxygen levels are low. States BP is 98/62 and oxygen is 88% on RA (Pt qualified for 2L with exertion only during hospitalization). Daughter states that the pt is experiencing chest pressure, ABD pain, lightheadedness, and dizziness. Recommended that the pt seek medical attention VALARIE. Daughter states understanding and denies further questions. Daughter states that the pt has been taking her medications as ordered and has been caring for her DM accordingly. Daughter states that the PCP f/u appt is not until the . Daughter plans to bring the pt in for further evaluation.
== END 2025-03-26 18:27 | disposition home or self-care (01) | DRG 291 ==
LOC: ED 03-25 03:17 → PCU 03-25 04:20
PROVIDERS: Emergency Provider Emergency Medicine; PCP Family Medicine; Visit Provider Student in an Organized Health Care Education/Training Program
DX: I11.0 Hypertensive heart disease with heart failure (principal); I50.31 Acute diastolic (congestive) heart failure; Z68.42 Body mass index [BMI] 45.0-49.9, adult; E03.9 Hypothyroidism, unspecified; Z99.81 Dependence on supplemental oxygen; E11.42 Type 2 diabetes mellitus with diabetic polyneuropathy; Z79.4 Long term (current) use of insulin; G47.30 Sleep apnea, unspecified; K21.9 Gastro-esophageal reflux disease without esophagitis; F41.9 Anxiety disorder, unspecified; E66.813 Obesity, class 3; G89.29 Other chronic pain; Z79.899 Other long term (current) drug therapy; Z87.891 Personal history of nicotine dependence; Z86.711 Personal history of pulmonary embolism; Z86.718 Personal history of other venous thrombosis and embolism
CPT/HCPCS: 36415; 71046; 71275; 74174; 80048; 80053; 82962; 83605; 83690; 83880; 84484; 85025; 85379; 93005; 93308; 94640; 94668; 97162; 97165; 97535; 97802; 99285; Q9957; Q9967; A4216; C8924; J1938

== ENCOUNTER 2025-03-28 13:54 | Emergency (ER) | payer MEDICARE, OTHER, SELFPAY ==
[2025-03-28] VITALS (8 sets, daily range): BP systolic 111–116; BP diastolic 64–74; PULSE 59–66; RESP 14–22; TEMP 36.7; O2SAT 94–97; BMI 44.1
--- NOTE | 2025-03-28 14:51 | EKG12_ITS ---
Test Reason : CP/SOB Blood Pressure : */* mmHG Vent. Rate : 62 BPM Atrial Rate : 62 BPM P-R Int : 148 ms QRS Dur : 84 ms QT Int : 502 ms P-R-T Axes : 45 -8 6 degrees QTcB Int : 509 ms Normal sinus rhythm Minimal voltage criteria for LVH, may be normal variant ( R in aVL ) Inferior infarct , age undetermined Prolonged QT Abnormal ECG Confirmed by VLAD QUINONEZ MD ([id number]), brands editor BENJIE FREIRE ([id number]) on 04/01/2025 8:23:12 AM Referred By: ANA/EDILSON Confirmed By: VLAD QUINONEZ MD
--- NOTE | 2025-03-28 15:06 | RAD_ITS ---
PROCEDURE: CHEST 1 VIEW (PORTABLE) 03/28/2025 REASON FOR EXAM: CHEST PAIN Shortness of breath and dizziness. TECHNIQUE: Frontal view of the chest. COMPARISON: Prior study dated March 24, 2025. FINDINGS: Hardware: None Heart: Mild cardiomegaly. Lungs: The lungs are clear. Bones: Degenerative changes are identified within the thoracic spine. Other: RAD/Chest 1 View (Portable) IMPRESSION: No Acute Findings. Reading Location: [id number]
[2025-03-28 15:21] LABS: Hematocrit 47.0 % (37-47); Hemoglobin 15.0 g/dL (12.0-15.0); Immature Granulocytes Count 0.040 X10^3/uL (0.0-0.0); Mean Corp Hgb Conc 31.9 g/dL (32-36); Mean Corpuscular Volume 90.4 fL (81-99); Mean Platelet Vol. 9.9 fl (6.2-12.0); NRBC Flagged by Analyzer 0 % (0-5); Platelet Count 346 K/mm3 (150-450); RBC Distribution Width CV 13.8 % (11.6-14.6); RBC Distribution Width SD 46.0 fl (35.1-43.9); Red Blood Count 5.20 M/mm3 (4.2-5.4); White Blood Count 10.0 K/mm3 (4.4-11.0)
--- NOTE | 2025-03-28 16:51 | ED.VIS.DYS ---
HPI History of Present Illness Chief Complaint: Shortness of Breath Narrative Narrative: 64-year-old female past medical history of recent diagnosis of congestive heart failure presents with chest pain, shortness of breath, and dizziness that began this afternoon. She relates history that she was seen in the emergency department on Tuesday, 4 days ago and was released 2 days ago. She had a diagnosis of CHF. She is on Lasix, and oxygen currently. She started having midsternal chest pain today, as well as shortness of breath and dizziness so her relative thought that she should be reevaluated. She denies any exacerbating or alleviating factors. [facility] Medical History Diastolic dysfunction (HFpEF) heart failure with preserved ejection fraction Hypoxemia Morbid obesity with BMI of 40.0-44.9, adult Acute cystitis without hematuria Chronic osteoarthritis Essential (primary) hypertension Hyperlipidemia Insomnia CPAP (continuous positive airway pressure) dependence Hypothyroidism Anxiety disorder, unspecified Chronic pain Depressive 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 Obesity hypoventilation syndrome PTSD (post-traumatic stress disorder) Insulin dependent diabetes mellitus Fibromyalgia Arthritis DVT (deep venous thrombosis) Back pain Syncope ASV (adaptive servo-ventilation) use counseling On home oxygen therapy Shortness of breath on exertion Implantable intrathecal infusion pump present Mixed connective tissue disease Osteoarthritis History of pulmonary embolus (PE) Acromioclavicular arthrosis Fatigue Gastroesophageal reflux disease DJD (degenerative joint disease) of lumbar spine Home Medications ?Medication ?Instructions ?Recorded ?Last Taken ?Type omeprazole 40 mg capsule,delayed 40 mg PO DAILY GERD 08/30/13 03/24/25 History release levothyroxine 50 mcg tablet 50 mcg PO DAILY thyroid 10/21/17 03/24/25 History atenolol 25 mg tablet 25 mg PO DAILY heart 05/18/19 03/24/25 History methotrexate sodium 2.5 mg tablet 20 mg PO FR fibromyalgia 08/19/20 03/24/25 History leucovorin calcium 10 mg tablet 5 mg PO FR supplement 12/08/20 03/24/25 History cholecalciferol (vitamin D3) 25 25 mcg PO DAILY supplement 09/13/22 03/24/25 History mcg (1,000 unit) capsule folic acid 1 mg tablet 1 mg PO BREAKFAST supplement #30 03/03/24 03/24/25 Rx tabs oxycodone-acetaminophen 5 mg-325 1 tab PO BID pain 07/27/24 03/24/25 History mg tablet lancets-blood glucose test #1 ea 07/28/24 Unknown Rx strips-pen needles with gauze kit gabapentin 100 mg capsule 100 mg PO TID nerve pain 90 days 09/03/24 03/24/25 Rx #270 caps blood-glucose sensor (FreeStyle #6 ea 09/21/24 Unknown Rx Prema 3 Plus Sensor device) insulin glargine-yfgn 100 unit/mL 52 unit (0.52 mL) subcut QHS 11/12/24 03/24/25 Rx (3 mL) subcutaneous pen diabetes #5 pens escitalopram oxalate 20 mg tablet 20 mg PO DAILY for depressive 03/05/25 03/24/25 Rx disorder #90 TABLETS fenofibrate nanocrystallized 48 mg 48 mg PO DAILY cholesterol 30 days 03/18/25 03/24/25 Rx tablet #30 tabs hydroxyzine pamoate 50 mg capsule 25 mg (1/2 x 50 mg) PO QHS mood 03/18/25 03/24/25 Rx #30 caps insulin lispro 100 unit/mL 25 unit (0.25 mL) subcut TIDWMEAL 03/18/25 03/24/25 Rx subcutaneous pen (Humalog KwikPen diabetes #15 mL (U-100) Insulin) lorazepam 0.5 mg tablet 0.5 mg PO TID #0 tabs 03/18/25 03/24/25 Rx tizanidine 4 mg tablet 2 mg (1/2 x 4 mg) PO TID PRN 03/18/25 03/24/25 Rx Muscle spasm 3 days #0 tabs trazodone 100 mg tablet 50 mg (1/2 x 100 mg) PO QHS mood 03/18/25 03/24/25 Rx 30 days #0 tabs ropinirole 1 mg tablet 1 mg PO BID restless legs 03/25/25 Unknown History furosemide 40 mg tablet (Lasix) 40 mg PO DAILY #30 tabs 03/26/25 Unknown Rx potassium chloride 20 mEq 20 meq PO DAILY #30 tabs 03/26/25 Unknown Rx tablet,extended release(part/cryst) (Klor-Con M) clonidine HCl 0.1 mg tablet 0.1 mg PO Q8H Anxiety/tremors 03/28/25 Unknown History Allergy/AdvReac Type Severity Reaction Status Date / Time amitriptyline Allergy Intermediate flushing Verified 03/28/25 13:56 niacin Allergy Itching Verified 03/24/25 22:08 venlafaxine AdvReac Severe Vomiting Verified 03/21/25 10:01 metformin AdvReac Intermediate Diarrhea Verified 03/21/25 10:01 Family History Sister Breast cancer Diabetes Kidney disease Mother Diabetes Heart disease Other Arthritis Surgical History H/O arthroplasty History of bunionectomy of both great toes History of lumbar fusion History of total right knee replacement Hx of surgical procedure Hx of arthroscopic knee surgery History of carpal tunnel release Hx of hysterectomy History of back surgery Hx of total knee replacement hx of plantar fasciotomy Social History household members: spouse Smoking Status: Former smoker alcohol intake: never substance use type: does not use caffeine: No what type of physical activity do you participate in: none seatbelt use: always do you feel safe at home: Yes additional social history: [employer] at [employer] Patient is disabled ROS ROS ED ROS Narrative Review of systems positive for midsternal chest pain, shortness of breath, dizziness/lightheadedness. No exacerbating or alleviating factors. No leg swelling or weight gain. She states she usually has to weigh herself after urinating, and before she was losing weight but now she is maintaining. Weight gain. EXAM Physical Exam Narrative Exam Narrative: Afebrile. Vital signs noted. Nontoxic-appearing. Cardiovascular examination reveals a regular rate and rhythm. Lungs are clear to auscultation bilaterally but distant breath sounds bilateral bases. Intermittent tachypnea. Abdomen soft nontender with positive bowel sounds. Neurological examination nonfocal nonlateralizing. No appreciable bilateral pedal edema. Const Vital Signs: 03/28/25 13:57 03/28/25 14:22 03/28/25 14:55 Temperature 98.1 F Temperature Source Oral Pulse Rate 66 61 Respiratory Rate 18 22 H Respiratory Effort Short of Breath Respiratory Pattern Tachypnea Blood Pressure 115/74 111/64 Blood Pressure Mean 87 79 Pulse Ox 96 95 Oxygen Delivery Method Nasal Cannula Nasal Cannula Room Air Oxygen Flow Rate (L/min) 2 2 03/28/25 15:03 03/28/25 15:13 03/28/25 16:09 Temperature Temperature Source Pulse Rate 62 59 L Respiratory Rate 14 21 H Respiratory Effort Respiratory Pattern Blood Pressure 111/70 116/71 Blood Pressure Mean 83 86 Pulse Ox 97 96 Oxygen Delivery Method Room Air Room Air Oxygen Flow Rate (L/min) 03/28/25 17:05 03/28/25 18:01 Temperature Temperature Source Pulse Rate 61 61 Respiratory Rate 19 H Respiratory Effort Respiratory Pattern Blood Pressure Blood Pressure Mean Pulse Ox 94 95 Oxygen Delivery Method Nasal Cannula Oxygen Flow Rate (L/min) MDM MDM MDM Narrative Medical decision making narrative: Differential diagnosis includes but not limited to CHF exacerbation versus pneumonia versus pneumothorax. I have low suspicion for pulmonary embolism clinically. EKG was obtained and interpreted by myself independently as normal sinus rhythm at 62 bpm without ectopy or acute ST changes. No STEMI. I reviewed her laboratory work and she has a normal white count of 10.0 with hemoglobin 15.0 so I do not think she is anemic causing shortness of breath. Platelet count normal at 346. BMP, troponin, and BNP are hemolyzed. Chest x-ray interpreted by myself independently shows no evidence of an acute process, no pneumonia or pneumothorax. I reviewed the radiology report which confirms my independent interpretation. I reviewed her laboratory work that remained as her labs had hemolyzed. Although her potassium and troponin were elevated once it was reported, there is extreme hemolysis so those labs were disregarded and repeat draw was performed. I reviewed her BMP and her chloride is low at 97 but she has normal potassium of 4.0, BUN slightly elevated at 20 with normal creatinine of 0.97. Her high-sensitivity troponin is 9. BNP is less than 36. At this point in time, I do feel this is more of a 6-hour troponin as she states she was having discomfort even when she left the hospital. I discussed with her repeating the troponin but she feels comfortable going home. As I do not think that she is in florid CHF with a BNP now less than 36, and it was elevated previously, I feel she can go home, continue her previous medications and routine including her home oxygen and follow-up with cardiology and her primary care provider. Patient and are agreeable to the plan and motivated for discharge. Disposition is discharged home in stable condition. History & Record Review Discussion w/independent historian: Patient Additional record(s) reviewed:: Prior ED visit and Prior labs Lab Data Attestation: I reviewed the patient's lab results. Labs: Laboratory Results - last 24 hr 03/28/25 03/28/25 03/28/25 14:20 16:00 17:00 WBC 10.0 RBC 5.20 Hgb 15.0 Hct 47.0 MCV 90.4 MCH 28.8 MCHC 31.9 L RDW Std Deviation 46.0 H RDW Coeff of Mouna 13.8 Plt Count 346 MPV 9.9 Immature Gran % (Auto) 0.400 Neut % (Auto) 60.9 Lymph % (Auto) 28.4 Hall % (Auto) 6.9 Eos % (Auto) 2.6 Baso % (Auto) 0.8 Absolute Neuts (auto) 6.1 Absolute Lymphs (auto) 2.85 Nucleated RBC % 0 Sodium Cancelled 130 L 138 Potassium Cancelled > 10.0 H* 4.0 Chloride Cancelled 96 L 97 L Carbon Dioxide Cancelled 26.2 27.3 Anion Gap Cancelled 8 13 BUN Cancelled 19 20 H Creatinine Cancelled 0.99 0.97 Estim Creat Clear Calc Cancelled 70.08 71.53 Est GFR (MDRD) Non-Af Cancelled 63 65 BUN/Creatinine Ratio Cancelled 19.0 20.3 H Glucose Cancelled 152 H 165 H Calcium Cancelled 8.8 9.3 Troponin T High Sens Cancelled 17 H D Troponin T Hi Sens 2 Hr 9 NT pro BNP II Cancelled < 36 Radiography Diagnostic Testing: Clinical Impression(s) from Imaging Studies Chest X-Ray 03/28/25 15:06 IMPRESSION: No Acute Findings. Reading Location: [id number] Discharge Plan Triage Chief Complaint: Shortness of Breath ED Provider: Chau Card Dx/Rx/DC Orders Clinical Impression: Chest pain, On home oxygen therapy, SOB (shortness of breath) Instructions: ED Chest Pain, Uncertain Cause, ED Dyspnea Prescriptions: No Action methotrexate sodium 2.5 mg tablet 20 mg PO FR cholecalciferol (vitamin D3) 25 mcg (1,000 unit) capsule 25 mcg PO DAILY gabapentin 100 mg capsule 100 mg PO TID 90 Days Qty: 270 2RF omeprazole 40 MG capsule 40 mg PO DAILY Patient Comments: ACID REFLEX levothyroxine 50 MCG tablet 50 mcg PO DAILY atenolol 25 MG tablet 25 mg PO DAILY leucovorin calcium 10 MG tablet 5 mg PO FR folic acid 1 mg Tablet 1 mg PO BREAKFAST Qty: 30 0RF oxycodone-acetaminophen 5-325 mg tablet 1 tab PO BID (DME) lancet-gluc yjtok-vclpub-[id number] Kit See Rx Instructions .Route Qty: 1 0RF Rx Instructions: As directed fenofibrate nanocrystallized 48 mg Tablet 48 mg PO DAILY 30 Days Qty: 30 0RF lorazepam 0.5 mg Tablet 0.5 mg PO TID Qty: 0 0RF Rx Instructions: Been down 0.5 mg 3 times daily for 3 days and then 0.25 mg 3 times daily for 3 days and then 0.25 mg twice daily for 3 days and 0.2 mg once daily for 3 days and then stop under guidance of PCP tizanidine 4 mg tablet 2 mg PO TID PRN (Reason: Muscle spasm) 3 Days Qty: 0 0RF hydroxyzine pamoate 50 mg capsule 25 mg PO QHS Qty: 30 2RF trazodone 100 MG tablet 50 mg PO QHS 30 Days Qty: 0 0RF Patient Comments: DEPRESSION insulin lispro [Humalog KwikPen Insulin] 100 unit/mL insulin pen 25 unit subcut TIDWMEAL Qty: 15 3RF Rx Instructions: Hold if glucose less than 130 mg/dl ropinirole 1 mg tablet 1 mg PO BID furosemide [Lasix] 40 mg tablet 40 mg PO DAILY Qty: 30 2RF potassium chloride [Klor-Con M20] 20 mEq tablet,ER particles/crystals 20 meq PO DAILY Qty: 30 1RF clonidine HCl 0.1 mg tablet 0.1 mg PO Q8H Patient Comments: take 1 tablet by mouth three times a day if needed for anxiety or TREMOR(S) (DME) FreeStyle Prema 3 Plus Sensor Device See Rx Instructions .Route Qty: 6 1RF Rx Instructions: As directed insulin glargine-yfgn 100 unit/mL (3 mL) insulin pen 52 unit subcut QHS Qty: 5 1RF escitalopram oxalate 20 mg tablet 20 mg PO DAILY Qty: 90 1RF Primary Care Provider: Rica Padgett Referrals: Rica Padgett DO [Primary Care Provider] - Activity Restrictions/Additional Instructions: Continue your previous medications and routine including your home oxygen. Follow-up with cardiology and your primary care provider. Return with new or worsening symptoms. Print Language: Welsh Disposition Disposition: Home, Self Care
[2025-03-28 16:54] LABS: Anion Gap 8 (5-15); BUN 19 mg/dL (4-19); BUN/Creat Ratio 19.0 RATIO (10-20); Calcium,Total 8.8 mg/dL (7.6-11.0); Carbon Dioxide 26.2 mmol/L (21.0-32.0); Chloride 96 mmol/L (98-108); Estimated Creatinine Clearance 70.08 ml/min (50-250); Glucose 152 mg/dL (70-99); Potassium > 10.0 mmol/L (3.3-5.1); Pro- Brain NATRIURETIC PEPTIDE < 36 pg/mL (<=900); Troponin T High Sensitivity 17 ng/L (<=14)
[2025-03-28 17:38] LABS: Troponin T High Sens 2 HR 9 ng/L (<=14)
[2025-03-28 18:06] LABS: Anion Gap 13 (5-15); BUN 20 mg/dL (4-19); BUN/Creat Ratio 20.3 RATIO (10-20); Calcium,Total 9.3 mg/dL (7.6-11.0); Carbon Dioxide 27.3 mmol/L (21.0-32.0); Chloride 97 mmol/L (98-108); Estimated Creatinine Clearance 71.53 ml/min (50-250); Glucose 165 mg/dL (70-99); Potassium 4.0 mmol/L (3.3-5.1)
== END 2025-03-28 18:34 | disposition home or self-care (01) ==
PROVIDERS: Emergency Provider Emergency Medicine; PCP Family Medicine; Visit Provider Emergency Medicine
DX: R06.02 Shortness of breath (principal); I11.0 Hypertensive heart disease with heart failure; I50.32 Chronic diastolic (congestive) heart failure; E11.9 Type 2 diabetes mellitus without complications; Z79.4 Long term (current) use of insulin; Z87.891 Personal history of nicotine dependence; Z90.710 Acquired absence of both cervix and uterus; Z99.81 Dependence on supplemental oxygen; K21.9 Gastro-esophageal reflux disease without esophagitis; E03.9 Hypothyroidism, unspecified; Z79.890 Hormone replacement therapy; Z79.899 Other long term (current) drug therapy; F41.9 Anxiety disorder, unspecified; Z96.651 Presence of right artificial knee joint; E78.5 Hyperlipidemia, unspecified; R07.9 Chest pain, unspecified
CPT/HCPCS: 71045; 80048; 83880; 84484; 85025; 93005; 99284; A4216

== ENCOUNTER → 2025-05-09 | Outpatient (CLI) | payer MEDICARE, OTHER, SELFPAY | END | disposition home or self-care (01) | LOC: LABSPEC 07-10 12:17 | PROVIDERS: PCP Family Medicine; Visit Provider Podiatrist | DX: L03.116 Cellulitis of left lower limb (principal) | CPT/HCPCS: 87070; 87075; 87077; 87186; 87205 ==

== ENCOUNTER → 2025-05-14 | Outpatient (CLI) | payer MEDICARE, OTHER, SELFPAY ==
--- OUTSIDE RECORDS SUMMARY | 2025-05-14 06:16 | XMS RPT_ITS | CCD ---
Author Organization [facility]iniS[facility]n Care Team Providers Care Hydrometer Tester Name Role Phone Sunol Azra ELLIS Unavailable [phone] Admitting Unavailable PB DR[address]MOND DR Attending Unavailable PB DRUMMOND DR Primary Care Unavailable Shonda York Primary Care Provider Rica Padgett DO Primary Care Provider [phone] Rica Padgett Unavailable Jesus Amezquita Unavailable Silvana [...] Care Provider Dr. Rica Padgett Referring Provider [phone] SAGE Ruiz Attending Provider [phone] Marie Dee Emergency Provider [phone] Dr. Adebayo Mckeon Admit Provider Dr. Adebayo [...] Consulting Unavailable PJ MAHONEY Referring Unavailable ERIC WEBSITE DESIGNER-SUPERVISOR TWISTING DEPARTMENT, RICA M Consulting Unavaila ble Malys DO, Rica Flex Primary Care Provider RENITA MIJARES Attending Unavailable RENITA MIJARES Referring Unavailable MALYS, RICA FLEX Primary Care Unavailable Chip, Erin Primary Care Provider Chip, Erin Primary Care Provider Malys, Rica Primary Care Unavailable Sibilia Deuce V Attending Unavailable Sibilia Deuce V Referring Unavailable Malys, Rica Primary Care Unavailable Rafi Berry Referring Unavailable Rafi Berry Attending Unavailable Malys, Rica Primary Care Unavailable Rm Keating Attending Unavailable Malys, Rica Primary Care Unavailable Tre Anderson Attending Unavailable David Caruso Admitting Unavailable David Caruso Consulting Unavailable Malys, Rica Primary Care Unavailable Rafi Berry Attending Unavailable Malys, Rica Primary Care Unavailable Matt Oglesby Attending Unavailable Malys, Rica Primary Care Unavailable Parviz Gupta Attending Unavailable Morgan Juárez Admitting Unavailable Morgan Juárez Consulting Unavailable Tarik Huizar Consulting Unavailable Adeli, Amir Consulting Unavailable Hinduja, Licha Consulting Unavailable Primitivo, Doreen Consulting Unavailable Zha, Sunitha Consulting Unavailable Jimbo, Anup Consulting Unavailable Maude, Avelina Consulting Unavailable Bittar, Hector Consulting Unavailable Carlin, Perry Consulting Unavailable Freddy, Akhil Consulting Unavailable Bemelissa, Rosa M Consulting Unavailable Payam West Consulting Unavailable Yamini Marquez Consulting Unavailable Bashir Jeter Consulting Unavailable Meghan, Charles Erazo Consulting UnavailBud Burgess Consulting Unavailable Danielle, Rami Consulting Unavailable Doris, Allen Consulting Unavailable Tc, Lauren Consulting Unavailable Hannatashi, Yousef Consulting Unavailable Malys, Rica Primary Care Unavailable Harrison Oglesbyl Attending Unavailable Malys, Rica Referring Unavailable Malys, Rica Primary Care Unavailable Fabiola Ruiz Attending Unavailable Malys, Rica Referring Unavailable Malys, Rica Primary Care Unavailable Mendel, Downey Attending Unavailable Malys, Rica Primary Care Unavailable Pj Lee Attending Unavailable Malys, Rica Primary Care Unavailable Chau Card Attending Unavailable Malys, Rica Primary Care Unavailable Tre Flores Attending Unavailable Malys, Rica Primary Care Unavailable Basali Ayman Referring Unavailable Basali Ayveronica Attending Unavailable Malys, Rica Referring Unavailable Malys, Rica Primary Care Unavailable Malys, Rica Attending Unavailable Malys, Rica Primary Care Unavailable Rafi Berry Referring Unavailable WunningRafi Attending Unavailable Malys, Rica Referring Unavailable Malys, Rica Primary Care Unavailable Malys, Rica Attending Unavailable Morgan Juárez Admitting Unavailable Malys, Rica Primary Care Unavailable Parviz Gupta Attending Unavailable Morgan Juráez Consulting Unavailable Tarik Huizar Consulting Unavailable Adeli, Amir Consulting Unavailable Hinduja, Licha Consulting Unavailable Primitivo, Doreen Consulting Unavailable Zha, Sunitha Consulting Unavailable Jimbo, Anup Consulting Unavailable Maude, Avelina Consulting Unavailable Bittar, Hector Consulting Unavailable Perry Carlin Consulting Unavailable Karrie Hayesrge Consulting Unavailable Rosa M Orta Consulting Unavailable Payam West Consulting Unavailable Yamini Marquez Consulting Unavailable Bashir Jeter Consulting Unavailable Meghan, Charles Galeast Consulting UnavailBud Burgess Consulting Unavailable Danielle, Rami Consulting Unavailable Doris, Allen Consulting Unavailable Tc, Lauren Consulting Unavailable Hannatashi, Yousef Consulting Unavailable Alonso, Parviz Consulting Unavailable Morgan Juárez Attending Unavailable Malys, Rica Primary Care Unavailable Koram, Autumn Rachael Attending Unavailable Jopperi, Tre Consulting Unavailable Jopperi, Tre Admitting Unavailable Malys, Rica Referring Unavailable Malys, Rica Primary Care Unavailable Fabiola Ruiz Attending Unavailable Malys, Rica Primary Care Unavailable Uday Stokes Attending Unavailable Stokes, Uday Referring Unavailable Malys, Rica Referring Unavailable Malys, Rica Primary Care Unavailable Joseph, Fabiola Attending Unavailable Malys, Rica Primary Care Unavailable Pj Lee Attending Unavailable Malys, Rica Referring Unavailable Malys, Rica Primary Care Unavailable DiogoMichi Attending Unavailable Malys, Rica Referring Unavailable Malys, Rica Primary Care Unavailable Diogo, Michi Attending Unavailable Malys, Rica Primary Care Unavailable Pj Lee Attending Unavailable Malys, Rica Primary Care Unavailable JosephFabiola Attending Unavailable Malys, Rica Referring Unavailable Malys, Rica Primary Care Unavailable JosephFabiola Attending Unavailable Malys, Rica Primary Care Unavailable Matt Oglesby Attending Unavailable Malys, Rica Primary Care Unavailable Koram, Autumn Rachael Attending Unavailable Jopperi, Tre Admitting Unavailable Jopperi, Tre Consulting Unavailable Koram, Autumn Rachael Consulting Unavailable Malys, Rica Primary Care Unavailable Jopperi, Tre Attending Unavailable David Caruso Admitting Unavailable David Caruso Consulting Unavailable Jopperi, Tre Consulting Unavailable David Caruso Attending Unavailable Malys, Rica Primary Care Unavailable Jopperi, Tre Attending Unavailable Malys, Rica Attending Unavailable Malys, Rica Primary Care Unavailable Allergies Allergy Classification Reported Allergen(s) Allergy Type Date of Onset Reaction(s) Facility Anti-Epileptic Agents (2 sources) gabapentin Drug Allergy 5 Mental Status Change [facility] Work Phone: Niacin (1 source) Niacin Drug Allergy 7 Rash, Hives, Itching [facility] (2 sources) gabapentin Drug Allergy 6 hives, light headed [facility] (1 source) gabapentin Drug Allergy Hives/Urticaria [facility] (8 sources) Cephalexin Drug Allergy 2 Other [facility] (16 sources) Niacin; Translations: [NIACIN] Drug Allergy 7 Rash, Hives, Itching [facility] (5 sources) gabapentin; Translations: [GABAPENTIN] Drug Allergy 5 Mental Status Change [facility] Work Phone: (2 sources) metFORMIN Drug Allergy 3 Diarrhea [facility] (3 sources) venlafaxine; Translations: [VENLAFAXINE] Drug Allergy 4 [facility] (2 sources) Niacin Drug Allergy 3 [facility] (1 source) Amitriptyline Drug Allergy 5 [facility] Repository (1 source) Cephalexin Drug Allergy 5 [facility] Repository (1 source) metFORMIN Drug Allergy 5 [facility] (1 source) Niacin Drug Allergy 5 [facility] Repository (1 source) venlafaxine Drug Allergy 5 [facility] Repository Medications Current Medications Medication Drug [...] 1 tab po q6h as needed HYDROCODONE-ACETAMINOPHEN [id number] Rica Padgett, DO acetaminophen 325 mg / oxyCODONE hydrochloride [...] affected area daily as needed DICLOFENAC SODIUM [id number] Rica Padgett, Diclofenac Sodiu m (Voltaren) 1 [...] Start: 02-03-2023 take [address] [facility] three times daily gabapentin 300 mg [...] Start: 12-08-2015 take 1 tablet by armen once daily HYDROXYZINE HCL 50 MG TABS 1 po daily HYDROXYZINE HCL [id number] Rica Padgett DO Start: 08-30-2013 take 100 mg by mouth at bedtim e Hydroxyzine Pamoate Active 100 MG PO AT BEDTIME August 30, 2013 12:00am take 1 tablet by armen twice daily hydrOXYzine HCl 50 mg tablet [...] 20 MG TABS 1 po daily RIVAROXABAN [id number] Adebayo Saunders DO take [address] [facility] once daily rivaroxaban (XARELTO) 10 mg [...] Drug Class(es) Dates Sig (Normalized) Sig (Original) [id number] actuat albuterol 0.09 mg/actuat metered dose [...] MG TABS 1 po daily LISINOPRIL-HYDROCHLOROTH IAZIDE [id number] Rica Padgett DO Start: 12-06-2014 End: 09-17-2022 [...] (6 sources) Hyperglycemia; Translations: [Other abnormal glucose] 06-18-2021 Episodic Disorders of lipid metabolism (6 sources) [...] including migraine; Translations: [Headache, unspecified] Onset: 5 Hypertension with complications and secondary hypertension (1 source) Hypertensive heart disease with heart failure; Translations: [Hypertensive heart disease with heart failure] Onset: 5 Chronic Menopausal disorders (8 sources) Atrophic vaginitis; Translations: [Postmenopausal atrophic vaginitis] 09-21-2022 Chronic Mood disorders (2 sources) Severe recurrent major depression without psychotic features; Translations: [Major depressive disorder, recurrent severe without psychotic features] Onset: 3 10-02-2022 Chronic Osteoarthritis (20 sources) Unspecified osteoarthritis, unspecified site; Translations: [Arthropathy] Onset: 0 Chronic Other aftercare (1 source) 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; Translations: [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] Onset: 5 Episodic Other [...] Translations: [Other respiratory abnormalities] 09-17-2022 Episodic Other lower respiratory disease (4 sources) Hypoxemia; Translations: [Hypoxemia] Onset: 4 09-17-2022 Episodic Other lower respiratory disease (2 sources) Shortness of breath; Translations: [Shortness of breath] Onset: 5 Episodic Other nervous system disorders (1 source) [...] observation following other accident] Onset: 11-25-2024 Episodic Residual codes; unclassified (5 sources) Family history of diabetes mellitus; Translations: [Family history of diabetes mellitus] Onset: 12-31-2010 12-31-2010 Episodic Unclassified (3 sources) calcium calcifications 03-17-2022 Unclassified (3 sources) hx of plantar fasciotomy 03-17-2022 Results Test Name Value Interpretation Reference Range Facility Wound Cultureon 2025 WC Normal [facility] Comment on above: Performed By: #### M 100.2000, M100.3000 ####[facility] [address] [place], [place], [id number] Gram Stainon 05-10-2025 GS CELLULITIS LEFT FOOT Gram Stain No organisms seen No Epithelial cells Normal [facility] Comment on above: Performed By: #### M 100.2000, M100.3000 ####[facility] [address] [place], [address] Endocrinology Visit Reporton 04-22-2025 Endocrinology Visit Report Normal [facility] Cardiology Visit Reporton Cardiology Visit Report Normal [facility] 12 Lead EKGon 03-28-2025 12 Lead EKG Normal [facility] Basic Metabolic Profile (BMP )on 03-28-2025 BUN/CRE 20.3 RATIO High 10-20 [facility] Comment on above: Order Comment: 2ND R EDRAW Performed By: #### L 500.2500 ####[facility] [address] [place], [address] Calcium [Mass/Vol] 9.3 mg/dL Normal 7.6-11.0 [facility] Comment on above: Order Comment: 2ND R EDRAW Performed By: #### L 500.2500 ####[facility] [address] [place], [address] Chloride [Moles/Vol] 97 mmol/L Low 98-108 [facility] Comment on above: Order Comment: 2ND R EDRAW Performed By: #### L 500.2500 ####[facility] [address] [place], [address] CO2 [Moles/Vol] 27.3 mmol/L Normal 21.0-32.0 [facility] Comment on above: Order Comment: 2ND R EDRAW Performed By: #### L 500.2500 ####[facility] [address] [place], [address] Creatinine [Mass/Vol] 0.97 mg/dL Normal 0.70-1.20 [facility] Comment on above: Order Comment: 2ND R EDRAW Performed By: #### L 500.2500 ####[facility] [address] [place], [address] ECRCL 71.53 ml/min Normal 50-250 [facility] Comment on above: Order Comment: 2ND R EDRAW Performed By: #### L 500.2500 ####[facility] [address] [place], [address] GAP 13 Normal 5-15 [facility] Comment on above: Order Comment: 2ND R EDRAW Performed By: #### L 500.2500 ####[facility] [address] [place], [address] GFR/1.73 sq M.predicted among non-blacks MDRD (S/P/Bld) [Vol rate/Area] 65 mL/min/{1.73_m2} Normal >60 [facility] Comment on above: Order Comment: 2ND R EDRAW Result Comment: mL/m in/1.73m2 CKD-EPI Creatinine Equation (2020) Performed By: #### L 500.2500 ####[facility] [address] [place], [address] Glucose [Mass/Vol] 165 mg/dL High 70-99 [facility] Comment on above: Order Comment: 2ND R EDRAW Performed By: #### L 500.2500 ####[facility] [address] [place], [address] Potassium [Moles/Vol] 4.0 mmol/L Normal 3.3-5.1 [facility] Comment on above: Order Comment: 2ND R EDRAW Performed By: #### L 500.2500 ####[facility] [address] [place], [address] Sodium [Moles/Vol] 138 mmol/L Normal 133-145 [facility] Comment on above: Order Comment: 2ND R EDRAW Performed By: #### L 500.2500 ####[facility] [address] [place], [address] Urea nitrogen [Mass/Vol] 20 mg/dL High 4-19 [facility] Comment on above: Order Comment: 2ND R EDRAW Performed By: #### L 500.2500 ####[facility] [address] [place], [address] BUN/CRE 19.0 RATIO Normal 10-20 [facility] Comment on above: Performed By: #### L 500.2500, L503.7505, L501.4021 ####[facility] [address] [place], [address] Calcium [Mass/Vol] 8.8 mg/dL Normal 7.6-11.0 [facility] Comment on above: Performed By: #### L 500.2500, L503.7505, L501.4021 ####[facility] [address] [place], [address] Chloride [Moles/Vol] 96 mmol/L Low 98-108 [facility] Comment on above: Performed By: #### L 500.2500, L503.7505, L501.4021 ####[facility] [address] [place], [address] CO2 [Moles/Vol] 26.2 mmol/L Normal 21.0-32.0 [facility] Comment on above: Result Comment: Hemo lysis Present, Results will be affected, RequiresRecollection. Performed By: #### L 500.2500, L503.7505, L501.4021 ####[facility] [address] [place], [address] Creatinine [Mass/Vol] 0.99 mg/dL Normal 0.70-1.20 [facility] Comment on above: Performed By: #### L 500.2500, L503.7505, L501.4021 ####[facility] [address] [place], [address] ECRCL 70.08 ml/min Normal 50-250 [facility] Comment on above: Performed By: #### L 500.2500, L503.7505, L501.4021 ####[facility] [address] [place], [address] GAP 8 Normal 5-15 [facility] Comment on above: Performed By: #### L 500.2500, L503.7505, L501.4021 ####[facility] [address] [place], [address] GFR/1.73 sq M.predicted among non-blacks MDRD (S/P/Bld) [Vol rate/Area] 63 mL/min/{1.73_m2} Normal >60 [facility] Comment on above: Result Comment: mL/m in/1.73m2 CKD-EPI Creatinine Equation (2020) Performed By: #### L 500.2500, L503.7505, L501.4021 ####[facility] [address] [place], [address] Glucose [Mass/Vol] 152 mg/dL High 70-99 [facility] Comment on above: Performed By: #### L 500.2500, L503.7505, L501.4021 ####[facility] [address] [place], [address] Potassium [Moles/Vol] mmol/L Invalid Interpretation Code 3.3-5.1 [facility] Comment on above: Result Comment: Hemo lysis present, Results??could be affected.??Critical Result(s) Called at: 1650 by:??FABIOLA CROWELL Results read back by same.NOTED THAT THIS IS THE REDRAW AND IS STILL EXTREMLYHEMOLYZED Performed By: #### L 500.2500, L503.7505, L501.4021 ####[facility] [address] [place], [address] Sodium [Moles/Vol] 130 mmol/L Low 133-145 [facility] Comment on above: Performed By: #### L 500.2500, L503.7505, L501.4021 ####[facility] [address] [place], [address] Urea nitrogen [Mass/Vol] 19 mg/dL Normal 4-19 [facility] Comment on above: Performed By: #### L 500.2500, L503.7505, L501.4021 ####[facility] [address] [facility] [address] BUN Normal 4-19 [facility] Comment on above: Result Comment: This specimen has been REJECTED due to Laboratory criteria:Hemolyzed.CARY JIMENEZ has been notified of need of recollection.03/28/25 1557 Fabiola Lollo Performed By: #### L 500.2500 ####[facility] [address] [facility] [address] BUN/CRE Normal 10-20 [facility] Comment on above: Result Comment: This specimen has been REJECTED due to Laboratory criteria:Hemolyzed.CARY JIMENEZ has been notified of need of recollection.03/28/25 1557 Fabiola Lollo Performed By: #### L 500.2500 ####[facility] [address] [facility] [address] Calcium Normal 7.6-11.0 [facility] Comment on above: Result Comment: This specimen has been REJECTED due to Laboratory criteria:Hemolyzed.CARY JIMENEZ has been notified of need of recollection.03/28/25 1557 Fabiola Lollo Performed By: #### L 500.2500 ####[facility] [address] [facility] [address] CL Normal 98-108 [facility] Comment on above: Result Comment: This specimen has been REJECTED due to Laboratory criteria:Hemolyzed.CARY JIMENEZ has been notified of need of recollection.03/28/25 1557 Fabiola Lollo Performed By: #### L 500.2500 ####[facility] [address] [place], [address] CO2 Normal 21.0-32.0 [facility] Comment on above: Result Comment: This specimen has been REJECTED due to Laboratory criteria:Hemolyzed.CARY JIMENEZ has been notified of need of recollection.03/28/25 1557 Fabiola Lollo Performed By: #### L 500.2500 ####[facility] [address] [place], [address] CREAT,SERUM Normal 0.70-1.20 [facility] Comment on above: Result Comment: This specimen has been REJECTED due to Laboratory criteria:Hemolyzed.CARY JIMENEZ has been notified of need of recollection.03/28/25 1557 Fabiola Lollo Performed By: #### L 500.2500 ####[facility] [address] [facility] [address] eGFR Normal >60 [facility] Comment on above: Result Comment: This specimen has been REJECTED due to Laboratory criteria:Hemolyzed.CARY JIMENEZ has been notified of need of recollection.03/28/25 1557 Fabiola Lollo Performed By: #### L 500.2500 ####[facility] [address] [place], [address] GAP Normal 5-15 [facility] Comment on above: Result Comment: This specimen has been REJECTED due to Laboratory criteria:Hemolyzed.CARY JIMENEZ has been notified of need of recollection.03/28/25 1557 Fabiola Lollo Performed By: #### L 500.2500 ####[facility] [address] [place], [address] GLU Normal 70-99 [facility] Comment on above: Result Comment: This specimen has been REJECTED due to Laboratory criteria:Hemolyzed.CARY JIMENEZ has been notified of need of recollection.03/28/25 1557 Fabiola Lollo Performed By: #### L 500.2500 ####[facility] [address] [place], [address] Potassium Normal 3.3-5.1 [facility] Comment on above: Result Comment: This specimen has been REJECTED due to Laboratory criteria:Hemolyzed.CARY JIMENEZ has been notified of need of recollection.03/28/25 1557 Fabiola Lollo Performed By: #### L 500.2500 ####[facility] [address] [place], [address] Basic Metabolic Profile (BMP) Normal 133-145 [facility] Comment on above: Result Comment: This specimen has been REJECTED due to Laboratory criteria:Hemolyzed.CARY JIMENEZ has been notified of need of recollection.03/28/25 1557 Fabiola Lollo Performed By: #### L 500.2500 ####[facility] [address] [place], [address] CBC W/Diff, Automatedon 07-3 -2024 Absolute Lymph 2.85 X10 3/uL Normal 0.83-4.51 [facility] Comment on above: Performed By: #### L 100.0100 ####[facility] [address] [place], [address] Absolute Neut 6.1 X10 3/uL Normal 2.0-7.7 [facility] Comment on above: Performed By: #### L 100.0100 ####[facility] [address] [place], [address] Basophils/100 WBC (Bld) 0.8 % Normal 0-1 [facility] Comment on above: Performed By: #### L 100.0100 ####[facility] [address] [place], [address] Eosinophils/100 WBC (Bld) 2.6 % Normal 0-5 [facility] Comment on above: Performed By: #### L 100.0100 ####[facility] [address] [place], [address] Erythrocyte distribution width (RBC) [Ratio] 13.8 % Normal 11.6-14.6 [facility] Comment on above: Performed By: #### L 100.0100 ####[facility] [address] [place], [address] Hematocrit (Bld) [Volume fraction] 47.0 % Normal 37-47 [facility] Comment on above: Performed By: #### L 100.0100 ####[facility] [address] [place], [address] Hemoglobin (Bld) [Mass/Vol] 15.0 g/dL Normal 12.0-15.0 [facility] Comment on above: Performed By: #### L 100.0100 ####[facility] [address] [place], [address] IG% 0.400 Normal 0.0-0.9 [facility] Comment on above: Result Comment: IG% - Immature Granulocytes (promyelocytes, myelocytes andmetamyelocytes) > 1% indicates that a LEFT SHIFT is Present. Performed By: #### L 100.0100 ####[facility] [address] [place], [address] Lymphocytes/100 WBC (Bld) 28.4 % Normal 19-41 [facility] Comment on above: Performed By: #### L 100.0100 ####[facility] [address] [place], [address] MCH (RBC) [Entitic mass] 28.8 pg Normal 27.0-32.0 [facility] Comment on above: Performed By: #### L 100.0100 ####[facility] [address] [place], [address] MCHC (RBC) [Mass/Vol] 31.9 g/dL Low 32-36 [facility] Comment on above: Performed By: #### L 100.0100 ####[facility] [address] [place], [address] MCV (RBC) [Entitic vol] 90.4 fL Normal 81-99 [facility] Comment on above: Performed By: #### L 100.0100 ####[facility] [address] [place], [address] Monocytes/100 WBC (Bld) 6.9 % Normal 0-10 [facility] Comment on above: Performed By: #### L 100.0100 ####[facility] [address] [place], [address] Neutrophils/100 WBC (Bld) 60.9 % Normal 47-70 [facility] Comment on above: Performed By: #### L 100.0100 ####[facility] [address] [place], [address] Nucleated RBC (Bld) [#/Vol] 0 10*3/uL Normal 0-5 [facility] Comment on above: Performed By: #### L 100.0100 ####[facility] [address] [place], [address] Platelet mean volume (Bld) [Entitic vol] 9.9 fL Normal 6.2-12.0 [facility] Comment on above: Performed By: #### L 100.0100 ####[facility] [address] [place], [address] Platelets (Bld) [#/Vol] 346 10*3/uL Normal 150-450 [facility] Comment on above: Performed By: #### L 100.0100 ####[facility] [address] [place], [address] RBC (Bld) [#/Vol] 5.20 10*6/uL Normal 4.2-5.4 [facility] Comment on above: Performed By: #### L 100.0100 ####[facility] [address] [place], [address] RDW SD 46.0 fl High 35.1-43.9 [facility] Comment on above: Performed By: #### L 100.0100 ####[facility] [address] [place], [address] WBC (Bld) [#/Vol] 10.0 10*3/uL Normal 4.4-11.0 [facility] Comment on above: Performed By: #### L 100.0100 ####[facility] [address] [place], [address] Chest 1 View (Portable)on Chest 1 View (Portable) Normal [facility] Emergency Department Summary on 03-28-2025 Emergency Department Summary Normal [facility] L501.4021on 03-28-2025 Trop T High Sen 17 ng/L High <=14 [facility] Comment on above: Result Comment: Hemo lysis present, Results??could be affected.?? Performed By: #### L 500.2500, L503.7505, L501.4021 ####[facility] [address] [place], [address] Pro- Brain NATRIURETIC PEPTI Sonia 03-28-2025 proBNP < 36 Normal <=900 [facility] Comment on above: Result Comment: Hear t Failure Unlikely: < 300 pg/mLHeart Failure Likely< 50 Years: > 450 pg/mL50-75 Years: > 900 pg/mL>75 Years: > 1800 pg/mL Performed By: #### L 500.2500, L503.7505, L501.4021 ####[facility] [address] [place], [address] Troponin T HS 2 HRon 025 Trop T High Sen 9 ng/L Normal <=14 [facility] Comment on above: Performed By: #### L 499.0042 ####[facility] [address] [place], [address] Troponin T HS 4 HRon 03-28- 025 Trop T High Sen Normal <=14 [facility] Comment on above: Result Comment: Canc elled via OM: Order cancelled - Patient discharged Performed By: #### L 499.0043 ####[facility] [address] [place], [address] Basic Metabolic Profile (BMP )on 03-26-2025 BUN/CRE 11.1 RATIO Normal 10-20 [facility] Comment on above: Performed By: #### L 100.0100, L500.2500 ####[facility] [address] [place], [address] Calcium [Mass/Vol] 9.5 mg/dL Normal 7.6-11.0 [facility] Comment on above: Performed By: #### L 100.0100, L500.2500 ####[facility] [address] [place], [address] Chloride [Moles/Vol] 96 mmol/L Low 98-108 [facility] Comment on above: Performed By: #### L 100.0100, L500.2500 ####[facility] [address] [place], [address] CO2 [Moles/Vol] 30.6 mmol/L Normal 21.0-32.0 [facility] Comment on above: Performed By: #### L 100.0100, L500.2500 ####[facility] [address] [place], [address] Creatinine [Mass/Vol] 0.78 mg/dL Normal 0.70-1.20 [facility] Comment on above: Performed By: #### L 100.0100, L500.2500 ####[facility] [address] [place], [address] ECRCL 87.21 ml/min Normal 50-250 [facility] Comment on above: Performed By: #### L 100.0100, L500.2500 ####[facility] [address] [place], [address] GAP 14 Normal 5-15 [facility] Comment on above: Performed By: #### L 100.0100, L500.2500 ####[facility] [address] [place], [address] GFR/1.73 sq M.predicted among non-blacks MDRD (S/P/Bld) [Vol rate/Area] 84 mL/min/{1.73_m2} Normal >60 [facility] Comment on above: Result Comment: mL/m in/1.73m2 CKD-EPI Creatinine Equation (2020) Performed By: #### L 100.0100, L500.2500 ####[facility] [address] [place], [address] Glucose [Mass/Vol] 190 mg/dL High 70-99 [facility] Comment on above: Performed By: #### L 100.0100, L500.2500 ####[facility] [address] [place], [address] Potassium [Moles/Vol] 3.3 mmol/L Normal 3.3-5.1 [facility] Comment on above: Performed By: #### L 100.0100, L500.2500 ####[facility] [address] [place], [address] Sodium [Moles/Vol] 141 mmol/L Normal 133-145 [facility] Comment on above: Performed By: #### L 100.0100, L500.2500 ####[facility] [address] [place], [address] Urea nitrogen [Mass/Vol] 9 mg/dL Normal 4-19 [facility] Comment on above: Performed By: #### L 100.0100, L500.2500 ####[facility] [address] [place], [address] Bedside Glucoseon 03-26-2025 FINGERSTICK GLU 182 mg/dL High 74-106 [facility] Comment on above: Result Comment: MARCELLA GEMENT OF PATIENT CARE PER NURSING PROTOCOL Performed By: #### L 501.080 ####[facility] [address] [place], [address] FINGERSTICK GLU 249 mg/dL High 74-106 [facility] Comment on above: Result Comment: MARCELLA GEMENT OF PATIENT CARE PER NURSING PROTOCOL Performed By: #### L 501.080 ####[facility] [address] [place], [address] FINGERSTICK GLU 187 mg/dL High 74-106 [facility] Comment on above: Result Comment: MARCELLA GEMENT OF PATIENT CARE PER NURSING PROTOCOL Performed By: #### L 501.080 ####[facility] [address] [place], [address] CBC W/Diff, Automatedon - Absolute Lymph 2.81 X10 3/uL Normal 0.83-4.51 [facility] Comment on above: Performed By: #### L 100.0100, L500.2500 ####[facility] [address] [place], [address] Absolute Neut 4.8 X10 3/uL Normal 2.0-7.7 [facility] Comment on above: Performed By: #### L 100.0100, L500.2500 ####[facility] [address] [place], [address] Basophils/100 WBC (Bld) 0.5 % Normal 0-1 [facility] Comment on above: Performed By: #### L 100.0100, L500.2500 ####[facility] [address] [place], [address] Eosinophils/100 WBC (Bld) 2.1 % Normal 0-5 [facility] Comment on above: Performed By: #### L 100.0100, L500.2500 ####[facility] [address] [place], [address] Erythrocyte distribution width (RBC) [Ratio] 13.8 % Normal 11.6-14.6 [facility] Comment on above: Performed By: #### L 100.0100, L500.2500 ####[facility] [address] [place], [address] Hematocrit (Bld) [Volume fraction] 43.4 % Normal 37-47 [facility] Comment on above: Performed By: #### L 100.0100, L500.2500 ####[facility] [address] [place], [address] Hemoglobin (Bld) [Mass/Vol] 14.0 g/dL Normal 12.0-15.0 [facility] Comment on above: Performed By: #### L 100.0100, L500.2500 ####[facility] [address] [place], [address] IG% 0.400 Normal 0.0-0.9 [facility] Comment on above: Result Comment: IG% - Immature Granulocytes (promyelocytes, myelocytes andmetamyelocytes) > 1% indicates that a LEFT SHIFT is Present. Performed By: #### L 100.0100, L500.2500 ####[facility] [address] [place], [address] Lymphocytes/100 WBC (Bld) 33.3 % Normal 19-41 [facility] Comment on above: Performed By: #### L 100.0100, L500.2500 ####[facility] [address] [place], [address] MCH (RBC) [Entitic mass] 29.5 pg Normal 27.0-32.0 [facility] Comment on above: Performed By: #### L 100.0100, L500.2500 ####[facility] [address] [place], [address] MCHC (RBC) [Mass/Vol] 32.3 g/dL Normal 32-36 [facility] Comment on above: Performed By: #### L 100.0100, L500.2500 ####[facility] [address] [place], [address] MCV (RBC) [Entitic vol] 91.6 fL Normal 81-99 [facility] Comment on above: Performed By: #### L 100.0100, L500.2500 ####[facility] [address] [place], [address] Monocytes/100 WBC (Bld) 6.6 % Normal 0-10 [facility] Comment on above: Performed By: #### L 100.0100, L500.2500 ####[facility] [address] [place], [address] Neutrophils/100 WBC (Bld) 57.1 % Normal 47-70 [facility] Comment on above: Performed By: #### L 100.0100, L500.2500 ####[facility] [address] [place], [address] Nucleated RBC (Bld) [#/Vol] 0 10*3/uL Normal 0-5 [facility] Comment on above: Performed By: #### L 100.0100, L500.2500 ####[facility] [address] [place], [address] Platelet mean volume (Bld) [Entitic vol] 9.5 fL Normal 6.2-12.0 [facility] Comment on above: Performed By: #### L 100.0100, L500.2500 ####[facility] [address] [place], [address] Platelets (Bld) [#/Vol] 256 10*3/uL Normal 150-450 [facility] Comment on above: Performed By: #### L 100.0100, L500.2500 ####[facility] [address] [place], [address] RBC (Bld) [#/Vol] 4.74 10*6/uL Normal 4.2-5.4 [facility] Comment on above: Performed By: #### L 100.0100, L500.2500 ####[facility] [address] [place], [address] RDW SD 46.2 fl High 35.1-43.9 [facility] Comment on above: Performed By: #### L 100.0100, L500.2500 ####[facility] [address] [place], [address] WBC (Bld) [#/Vol] 8.5 10*3/uL Normal 4.4-11.0 [facility] Comment on above: Performed By: #### L 100.0100, L500.2500 ####[facility] [address] [place], [address] Discharge Instructionon 07-2 Discharge Instruction Normal [facility] Bedside Glucoseon 03-25-2025 FINGERSTICK GLU 214 mg/dL High 74-106 [facility] Comment on above: Result Comment: MARCELLA GEMENT OF PATIENT CARE PER NURSING PROTOCOL Performed By: #### L 501.080 ####[facility] [address] [place], [address] FINGERSTICK GLU 172 mg/dL High 74-106 [facility] Comment on above: Result Comment: MARCELLA GEMENT OF PATIENT CARE PER NURSING PROTOCOL Performed By: #### L 501.080 ####[facility] [address] [place], [address] FINGERSTICK GLU 175 mg/dL High 74-106 [facility] Comment on above: Result Comment: MARCELLA GEMENT OF PATIENT CARE PER NURSING PROTOCOL Performed By: #### L 501.080 ####[facility] [address] [place], [address] FINGERSTICK GLU 235 mg/dL High 74-106 [facility] Comment on above: Result Comment: MARCELLA GEMENT OF PATIENT CARE PER NURSING PROTOCOL Performed By: #### L 501.080 ####[facility] [address] [place], [address] Echo Limited w/Contraston Echo Limited w/Contrast Normal [facility] H AND P Exam - Hospitaliston 03-25-2025 H&P Exam - Hospitalist Normal [facility] Troponin T HS 2 HRon 025 Trop T High Sen Normal <=14 [facility] Comment on above: Result Comment: Canc elled via OM: MD Ordered Performed By: #### L 499.0042 ####[facility] [address] [place], [address] Troponin T HS 4 HRon 025 Trop T High Sen Normal <=14 [facility] Comment on above: Result Comment: Canc elled via OM: MD Ordered Performed By: #### L 499.0043 ####[facility] [address] [place], [address] 12 Lead EKGon 03-24-2025 12 Lead EKG Normal [facility] CBC W/Diff, Automatedon -2 Absolute Lymph 1.89 X10 3/uL Normal 0.83-4.51 [facility] Comment on above: Performed By: #### L 300.8000, L501.2450, L500.4050, L100.0100 ####[facility] [address] [place], [address] Absolute Neut 5.5 X10 3/uL Normal 2.0-7.7 [facility] Comment on above: Performed By: #### L 300.8000, L501.2450, L500.4050, L100.0100 ####[facility] [address] [place], [address] Basophils/100 WBC (Bld) 0.5 % Normal 0-1 [facility] Comment on above: Performed By: #### L 300.8000, L501.2450, L500.4050, L100.0100 ####[facility] [address] [place], [address] Eosinophils/100 WBC (Bld) 2.2 % Normal 0-5 [facility] Comment on above: Performed By: #### L 300.8000, L501.2450, L500.4050, L100.0100 ####[facility] [address] [place], [address] Erythrocyte distribution width (RBC) [Ratio] 13.9 % Normal 11.6-14.6 [facility] Comment on above: Performed By: #### L 300.8000, L501.2450, L500.4050, L100.0100 ####[facility] [address] [place], [address] Hematocrit (Bld) [Volume fraction] 39.6 % Normal 37-47 [facility] Comment on above: Performed By: #### L 300.8000, L501.2450, L500.4050, L100.0100 ####[facility] [address] [place], [address] Hemoglobin (Bld) [Mass/Vol] 12.9 g/dL Normal 12.0-15.0 [facility] Comment on above: Performed By: #### L 300.8000, L501.2450, L500.4050, L100.0100 ####[facility] [address] [place], [address] IG% 0.500 Normal 0.0-0.9 [facility] Comment on above: Result Comment: IG% - Immature Granulocytes (promyelocytes, myelocytes andmetamyelocytes) > 1% indicates that a LEFT SHIFT is Present. Performed By: #### L 300.8000, L501.2450, L500.4050, L100.0100 ####[facility] [address] [place], [address] Lymphocytes/100 WBC (Bld) 23.4 % Normal 19-41 [facility] Comment on above: Performed By: #### L 300.8000, L501.2450, L500.4050, L100.0100 ####[facility] [address] [place], [address] MCH (RBC) [Entitic mass] 29.5 pg Normal 27.0-32.0 [facility] Comment on above: Performed By: #### L 300.8000, L501.2450, L500.4050, L100.0100 ####[facility] [address] [place], [address] MCHC (RBC) [Mass/Vol] 32.6 g/dL Normal 32-36 [facility] Comment on above: Performed By: #### L 300.8000, L501.2450, L500.4050, L100.0100 ####[facility] [address] [place], [address] MCV (RBC) [Entitic vol] 90.6 fL Normal 81-99 [facility] Comment on above: Performed By: #### L 300.8000, L501.2450, L500.4050, L100.0100 ####[facility] [address] [place], [address] Monocytes/100 WBC (Bld) 5.6 % Normal 0-10 [facility] Comment on above: Performed By: #### L 300.8000, L501.2450, L500.4050, L100.0100 ####[facility] [address] [place], [address] Neutrophils/100 WBC (Bld) 67.8 % Normal 47-70 [facility] Comment on above: Performed By: #### L 300.8000, L501.2450, L500.4050, L100.0100 ####[facility] [address] [place], [address] Nucleated RBC (Bld) [#/Vol] 0 10*3/uL Normal 0-5 [facility] Comment on above: Performed By: #### L 300.8000, L501.2450, L500.4050, L100.0100 ####[facility] [address] [place], [address] Platelet mean volume (Bld) [Entitic vol] 9.4 fL Normal 6.2-12.0 [facility] Comment on above: Performed By: #### L 300.8000, L501.2450, L500.4050, L100.0100 ####[facility] [address] [place], [address] Platelets (Bld) [#/Vol] 227 10*3/uL Normal 150-450 [facility] Comment on above: Performed By: #### L 300.8000, L501.2450, L500.4050, L100.0100 ####[facility] [address] [place], [address] RBC (Bld) [#/Vol] 4.37 10*6/uL Normal 4.2-5.4 [facility] Comment on above: Performed By: #### L 300.8000, L501.2450, L500.4050, L100.0100 ####[facility] [address] [place], [address] RDW SD 45.9 fl High 35.1-43.9 [facility] Comment on above: Performed By: #### L 300.8000, L501.2450, L500.4050, L100.0100 ####[facility] [address] [place], [address] WBC (Bld) [#/Vol] 8.1 10*3/uL Normal 4.4-11.0 [facility] Comment on above: Performed By: #### L 300.8000, L501.2450, L500.4050, L100.0100 ####[facility] [address] [place], [address] CTA Chst, Abd, Pel W and/or WOon 03-24-2025 CTA Chst, Abd, Pel W and/or WO Normal [facility] Chest PA and Lateralon 03-24 Chest PA and Lateral Normal [facility] Comprehensive Metabolic Prof ilon 03-24-2025 Albumin [Mass/Vol] 3.7 g/dL Normal 3.4-4.8 [facility] Comment on above: Performed By: #### L 300.8000, L501.2450, L500.4050, L100.0100 ####[facility] [address] [place], [address] Albumin/Globulin [Mass ratio] 1.3 {ratio} Normal 0.9-2.4 [facility] Comment on above: Performed By: #### L 300.8000, L501.2450, L500.4050, L100.0100 ####[facility] [address] [place], [address] ALK PHOS 110 U/L High 35-104 [facility] Comment on above: Performed By: #### L 300.8000, L501.2450, L500.4050, L100.0100 ####[facility] [address] [place], [address] ALT [Catalytic activity/Vol] 114 U/L High <=34 [facility] Comment on above: Performed By: #### L 300.8000, L501.2450, L500.4050, L100.0100 ####[facility] [address] [place], [address] AST [Catalytic activity/Vol] 83 U/L High <=31 [facility] Comment on above: Performed By: #### L 300.8000, L501.2450, L500.4050, L100.0100 ####[facility] [address] [place], [address] Bilirubin [Mass/Vol] 0.42 mg/dL Normal 0.00-1.30 [facility] Comment on above: Performed By: #### L 300.8000, L501.2450, L500.4050, L100.0100 ####[facility] [address] [place], [address] BUN/CRE 10.6 RATIO Normal 10-20 [facility] Comment on above: Performed By: #### L 300.8000, L501.2450, L500.4050, L100.0100 ####[facility] [address] [place], [address] Calcium [Mass/Vol] 8.9 mg/dL Normal 7.6-11.0 [facility] Comment on above: Performed By: #### L 300.8000, L501.2450, L500.4050, L100.0100 ####[facility] [address] [place], [address] Chloride [Moles/Vol] 102 mmol/L Normal 98-108 [facility] Comment on above: Performed By: #### L 300.8000, L501.2450, L500.4050, L100.0100 ####[facility] [address] [place], [address] CO2 [Moles/Vol] 26.4 mmol/L Normal 21.0-32.0 [facility] Comment on above: Performed By: #### L 300.8000, L501.2450, L500.4050, L100.0100 ####[facility] [address] [place], [address] Creatinine [Mass/Vol] 0.72 mg/dL Normal 0.70-1.20 [facility] Comment on above: Performed By: #### L 300.8000, L501.2450, L500.4050, L100.0100 ####[facility] [address] [place], [address] ECRCL 89.83 ml/min Normal 50-250 [facility] Comment on above: Performed By: #### L 300.8000, L501.2450, L500.4050, L100.0100 ####[facility] [address] [place], [address] GAP 12 Normal 5-15 [facility] Comment on above: Performed By: #### L 300.8000, L501.2450, L500.4050, L100.0100 ####[facility] [address] [place], [address] GFR/1.73 sq M.predicted among non-blacks MDRD (S/P/Bld) [Vol rate/Area] 93 mL/min/{1.73_m2} Normal >60 [facility] Comment on above: Result Comment: mL/m in/1.73m2 CKD-EPI Creatinine Equation (2020) Performed By: #### L 300.8000, L501.2450, L500.4050, L100.0100 ####[facility] [address] [place], [address] Globulin (S) [Mass/Vol] 2.9 g/dL Normal 2.2-4.2 [facility] Comment on above: Performed By: #### L 300.8000, L501.2450, L500.4050, L100.0100 ####[facility] [address] [place], [address] Glucose [Mass/Vol] 200 mg/dL High 70-99 [facility] Comment on above: Performed By: #### L 300.8000, L501.2450, L500.4050, L100.0100 ####[facility] [address] [place], [address] Potassium [Moles/Vol] 3.7 mmol/L Normal 3.3-5.1 [facility] Comment on above: Performed By: #### L 300.8000, L501.2450, L500.4050, L100.0100 ####[facility] [address] [place], [address] Sodium [Moles/Vol] 141 mmol/L Normal 133-145 [facility] Comment on above: Performed By: #### L 300.8000, L501.2450, L500.4050, L100.0100 ####[facility] [address] [place], [address] T PROT 6.6 g/dL Normal 5.9-8.4 [facility] Comment on above: Performed By: #### L 300.8000, L501.2450, L500.4050, L100.0100 ####[facility] [address] [place], [address] Urea nitrogen [Mass/Vol] 8 mg/dL Normal 4-19 [facility] Comment on above: Performed By: #### L 300.8000, L501.2450, L500.4050, L100.0100 ####[facility] [address] [place], [address] D-Dimer Quantitative (DVT/PE )on 03-24-2025 D-DIMER QUANT 0.76 FEU/ug/m Invalid Interpretation Code 0.27-0.49 [facility] Comment on above: Result Comment: D-Di kareen ELEVATED (>0.49): Additional studies and clinicalassessments are indicated to conclude diagnosis of:Deep Vein Thrombosis (DVT) or Pulmonary Embolism (PE)CRITICAL VALUE CALLED TO [facility]03/24/25 [employer].RESULTS READ BACK BY SAME. Performed By: #### L 300.8000, L501.2450, L500.4050, L100.0100 ####[facility] [address] [place], [address] Emergency Department Summary on 03-24-2025 Emergency Department Summary Normal [facility] L501.4021on 03-24-2025 Trop T High Sen 7 ng/L Normal <=14 [facility] Comment on above: Performed By: #### L 503.6005, L503.7505, L501.4021 ####[facility] [address] [place], [address] Lactic Acidon 03-24-2025 Lactate [Moles/Vol] 1.8 mmol/L Normal 0.0-2.0 [facility] Comment on above: Order Comment: Y Performed By: #### L 503.6005, L503.7505, L501.4021 ####[facility] [address] [place], [address] Lipaseon 03-24-2025 Lipase [Catalytic activity/Vol] 33 U/L Normal 13-75 [facility] Comment on above: Result Comment: Sherri martinez note:LIPASE revised reference range effective 22.New Lipase methodology. Expected to produce lower valuesthan the previous assay method.NEW Reference Range: 13 - 75 U/L Performed By: #### L 300.8000, L501.2450, L500.4050, L100.0100 ####[facility] [address] [place], [address] Pro- Brain NATRIURETIC PEPTI Sonia 03-24-2025 Natriuretic peptide B (Bld) [Mass/Vol] 556 pg/mL Normal <=900 [facility] Comment on above: Result Comment: Hear t Failure Unlikely: < 300 pg/mLHeart Failure Likely< 50 Years: > 450 pg/mL50-75 Years: > 900 pg/mL>75 Years: > 1800 pg/mL Performed By: #### L 503.6005, L503.7505, L501.4021 ####[facility] [address] [place], [address] Endocrinology Visit Reporton 03-21-2025 Endocrinology Visit Report Normal [facility] Basic Metabolic Profile (BMP )on 03-18-2025 BUN/CRE 12.7 RATIO Normal 10-20 [facility] Comment on above: Order Comment: REDRA W. PREVIOUS SPECIMEN REJECTED DUE TOHEMOLYSIS. 03/18/25622 Dc Anival Hartman. Performed By: #### L 500.2500 ####[facility] [address] [place], [address] Calcium [Mass/Vol] 9.1 mg/dL Normal 7.6-11.0 [facility] Comment on above: Order Comment: REDRA W. PREVIOUS SPECIMEN REJECTED DUE TOHEMOLYSIS. 03/18/25622 Dc Hartman. Performed By: #### L 500.2500 ####[facility] [address] [place], [address] Chloride [Moles/Vol] 98 mmol/L Normal 98-108 [facility] Comment on above: Order Comment: REDRA W. PREVIOUS SPECIMEN REJECTED DUE TOHEMOLYSIS. 03/18/25622 Dc Hartman. Performed By: #### L 500.2500 ####[facility] [address] [place], [address] CO2 [Moles/Vol] 25.9 mmol/L Normal 21.0-32.0 [facility] Comment on above: Order Comment: REDRA W. PREVIOUS SPECIMEN REJECTED DUE TOHEMOLYSIS. 03/18/25622 Dc R Hartman. Performed By: #### L 500.2500 ####[facility] [address] [place], [address] Creatinine [Mass/Vol] 0.62 mg/dL Low 0.70-1.20 [facility] Comment on above: Order Comment: REDRA W. PREVIOUS SPECIMEN REJECTED DUE TOHEMOLYSIS. 03/18/25622 Dc R Hartman. Performed By: #### L 500.2500 ####[facility] [address] [place], [address] ECRCL 88.86 ml/min Normal 50-250 [facility] Comment on above: Order Comment: REDRA W. PREVIOUS SPECIMEN REJECTED DUE TOHEMOLYSIS. 03/18/25622 Dc R Hartman. Performed By: #### L 500.2500 ####[facility] [address] [place], [address] GAP 13 Normal 5-15 [facility] Comment on above: Order Comment: REDRA W. PREVIOUS SPECIMEN REJECTED DUE TOHEMOLYSIS. 03/18/25622 Dc R Hartman. Performed By: #### L 500.2500 ####[facility] [address] [place], [address] GFR/1.73 sq M.predicted among non-blacks MDRD (S/P/Bld) [Vol rate/Area] 98 mL/min/{1.73_m2} Normal >60 [facility] Comment on above: Order Comment: REDRA W. PREVIOUS SPECIMEN REJECTED DUE TOHEMOLYSIS. 03/18/25622 Dc R Hartman. Result Comment: mL/m in/1.73m2 CKD-EPI Creatinine Equation (2020) Performed By: #### L 500.2500 ####[facility] [address] [place], [address] Glucose [Mass/Vol] 287 mg/dL High 70-99 [facility] Comment on above: Order Comment: REDRA W. PREVIOUS SPECIMEN REJECTED DUE TOHEMOLYSIS. 03/18/25622 Dc R Hartman. Performed By: #### L 500.2500 ####[facility] [address] [place], [address] Potassium [Moles/Vol] 3.7 mmol/L Normal 3.3-5.1 [facility] Comment on above: Order Comment: REDRA W. PREVIOUS SPECIMEN REJECTED DUE TOHEMOLYSIS. 03/18/25622 Dc R Hartman. Performed By: #### L 500.2500 ####[facility] [address] [facility] [address] Sodium [Moles/Vol] 137 mmol/L Normal 133-145 [facility] Comment on above: Order Comment: REDRA W. PREVIOUS SPECIMEN REJECTED DUE TOHEMOLYSIS. 03/18/25622 Dc R Hartman. Performed By: #### L 500.2500 ####[facility] [address] [facility] [address] Urea nitrogen [Mass/Vol] 8 mg/dL Normal 4-19 [facility] Comment on above: Order Comment: REDRA W. PREVIOUS SPECIMEN REJECTED DUE TOHEMOLYSIS. 03/18/25622 Dc R Hartman. Performed By: #### L 500.2500 ####[facility] [address] [facility] [address] BUN Normal 4-19 [facility] Comment on above: Result Comment: This specimen has been REJECTED due to Laboratory criteria:Hemolyzed.LMARTELL has been notified of need of recollection.03/18/25621 Dc R Hartman Performed By: #### L 100.0100, L500.2500 ####[facility] [address] [place], [address] BUN/CRE Normal 10-20 [facility] Comment on above: Result Comment: This specimen has been REJECTED due to Laboratory criteria:Hemolyzed.LMARTELL has been notified of need of recollection.07/21/25 0622 Dc R Hartman Performed By: #### L 100.0100, L500.2500 ####[facility] [address] [facility] [address] Calcium Normal 7.6-11.0 [facility] Comment on above: Result Comment: This specimen has been REJECTED due to Laboratory criteria:[facility] has been notified of need of recollection.03/18/25621 Dc R Hartman Performed By: #### L 100.0100, L500.2500 ####[facility] [address] [facility] [address] CL Normal 98-108 [facility] Comment on above: Result Comment: This specimen has been REJECTED due to Laboratory criteria:[facility]zed.[facility] has been notified of need of recollection.03/18/25621 Dc R Hartman Performed By: #### L 100.0100, L500.2500 ####[facility] [address] [facility] [address] CO2 Normal 21.0-32.0 [facility] Comment on above: Result Comment: This specimen has been REJECTED due to Laboratory criteria:[facility]olyzed.[facility] has been notified of need of recollection.03/18/25621 Dc R Hartman Performed By: #### L 100.0100, L500.2500 ####[facility] [address] [facility] [address] CREAT,SERUM Normal 0.70-1.20 [facility] Comment on above: Result Comment: This specimen has been REJECTED due to Laboratory criteria:Hemolyzed.[facility] has been notified of need of recollection.03/18/25621 Dc R Hartman Performed By: #### L 100.0100, L500.2500 ####[facility] [address] [place], [address] eGFR Normal >60 [facility] Comment on above: Result Comment: This specimen has been REJECTED due to Laboratory criteria:Hemolyzed.LMARTELL has been notified of need of recollection.03/18/25621 Dc R Hartman Performed By: #### L 100.0100, L500.2500 ####[facility] [address] [place], [address] GAP Normal 5-15 [facility] Comment on above: Result Comment: This specimen has been REJECTED due to Laboratory criteria:Hemolyzed.[facility] has been notified of need of recollection.03/18/25621 Dc R Hartman Performed By: #### L 100.0100, L500.2500 ####[facility] [address] [place], [address] GLU Normal 70-99 [facility] Comment on above: Result Comment: This specimen has been REJECTED due to Laboratory criteria:Hemolyzed.[facility] has been notified of need of recollection.03/18/25621 Dc R Hartman Performed By: #### L 100.0100, L500.2500 ####[facility] [address] [place], [address] Potassium Normal 3.3-5.1 [facility] Comment on above: Result Comment: This specimen has been REJECTED due to Laboratory criteria:Hemolyzed.[facility] has been notified of need of recollection.03/18/25621 Dc R Hartman Performed By: #### L 100.0100, L500.2500 ####[facility] [address] [place], [address] Basic Metabolic Profile (BMP) Normal 133-145 [facility] Comment on above: Result Comment: This specimen has been REJECTED due to Laboratory criteria:Hemolyzed.[facility] has been notified of need of recollection.03/18/25621 Dc R Hartman Performed By: #### L 100.0100, L500.2500 ####[facility] [address] [place], [address] Bedside Glucoseon 03-18-2025 FINGERSTICK GLU 208 mg/dL High 74-106 [facility] Comment on above: Result Comment: MARCELLA GEMENT OF PATIENT CARE PER NURSING PROTOCOL Performed By: #### L 501.080 ####[facility] [address] [place], [address] FINGERSTICK GLU 274 mg/dL High 74-106 [facility] Comment on above: Result Comment: MARCELLA GEMENT OF PATIENT CARE PER NURSING PROTOCOL Performed By: #### L 501.080 ####[facility] [address] [place], [address] FINGERSTICK GLU 285 mg/dL High 74-106 [facility] Comment on above: Result Comment: MARCELLA GEMENT OF PATIENT CARE PER NURSING PROTOCOL Performed By: #### L 501.080 ####[facility] [address] [place], [address] Brain/Head without Contrasto n 03-18-2025 Brain/Head without Contrast Normal [facility] CBC W/Diff, Automatedon 07- PLT EST ADEQUATE Normal ADEQ [facility] Comment on above: Performed By: #### L 100.0100, L500.2500 ####[facility] [address] [place], [address] PLT MORPH CLUMPED Normal [facility] Comment on above: Performed By: #### L 100.0100, L500.2500 ####[facility] [address] [place], [address] RED CELL MORPH NORM C+C Normal NORM C C [facility] Comment on above: Performed By: #### L 100.0100, L500.2500 ####[facility] [address] [place], [address] SMEAR COMMENT SCANNED Normal [facility] Comment on above: Performed By: #### L 100.0100, L500.2500 ####[facility] [address] [place], [address] Discharge Instructionon 02-27 Discharge Instruction Normal [facility] Basic Metabolic Profile (BMP )on 03-17-2025 BUN/CRE 13.7 RATIO Normal -20 [facility] Comment on above: Performed By: #### L 500.2500, L501.2300 ####[facility] [address] [place], [address] Calcium [Mass/Vol] 8.8 mg/dL Normal 7.6-11.0 [facility] Comment on above: Performed By: #### L 500.2500, L501.2300 ####[facility] [address] [place], [address] Chloride [Moles/Vol] 99 mmol/L Normal 98-108 [facility] Comment on above: Performed By: #### L 500.2500, L501.2300 ####[facility] [address] [place], [address] CO2 [Moles/Vol] 21.6 mmol/L Normal 21.0-32.0 [facility] Comment on above: Performed By: #### L 500.2500, L501.2300 ####[facility] [address] [place], [address] Creatinine [Mass/Vol] 0.69 mg/dL Low 0.70-1.20 [facility] Comment on above: Performed By: #### L 500.2500, L501.2300 ####[facility] [address] [place], [address] ECRCL 88.47 ml/min Normal 50-250 [facility] Comment on above: Performed By: #### L 500.2500, L501.2300 ####[facility] [address] [place], [address] GAP 15 Normal 5-15 [facility] Comment on above: Performed By: #### L 500.2500, L501.2300 ####[facility] [address] [place], [address] GFR/1.73 sq M.predicted among non-blacks MDRD (S/P/Bld) [Vol rate/Area] 96 mL/min/{1.73_m2} Normal >60 [facility] Comment on above: Result Comment: mL/m in/1.73m2 CKD-EPI Creatinine Equation (2020) Performed By: #### L 500.2500, L501.2300 ####[facility] [address] [place], [address] Glucose [Mass/Vol] 260 mg/dL High 70-99 [facility] Comment on above: Performed By: #### L 500.2500, L501.2300 ####[facility] [address] [place], [address] Potassium [Moles/Vol] 3.9 mmol/L Normal 3.3-5.1 [facility] Comment on above: Result Comment: Hemo lysis present, Results??could be affected.?? Performed By: #### L 500.2500, L501.2300 ####[facility] [address] [place], [address] Sodium [Moles/Vol] 135 mmol/L Normal 133-145 [facility] Comment on above: Performed By: #### L 500.2500, L501.2300 ####[facility] [address] [place], [address] Urea nitrogen [Mass/Vol] 9 mg/dL Normal 4-19 [facility] Comment on above: Performed By: #### L 500.2500, L501.2300 ####[facility] [address] [place], [address] Bedside Glucoseon 03-17-2025 FINGERSTICK GLU 256 mg/dL High 74-106 [facility] Comment on above: Result Comment: MARCELLA GEMENT OF PATIENT CARE PER NURSING PROTOCOL Performed By: #### L 501.080 ####[facility] [address] [place], [address] FINGERSTICK GLU 190 mg/dL High 74-106 [facility] Comment on above: Result Comment: MARCELLA GEMENT OF PATIENT CARE PER NURSING PROTOCOL Performed By: #### L 501.080 ####[facility] [address] [place], [address] FINGERSTICK GLU 283 mg/dL High 74-106 [facility] Comment on above: Result Comment: MARCELLA GEMENT OF PATIENT CARE PER NURSING PROTOCOL Performed By: #### L 501.080 ####[facility] [address] [place], [address] FINGERSTICK GLU 275 mg/dL High -106 [facility] Comment on above: Result Comment: MARCELLA GEMENT OF PATIENT CARE PER NURSING PROTOCOL Performed By: #### L 501.080 ####[facility] [address] [place], [address] FINGERSTICK GLU 309 mg/dL High -[address] [place] [address] Comment on above: Result Comment: MARCELLA GEMENT OF PATIENT CARE PER NURSING PROTOCOL Performed By: #### L 501.080 ####[facility] [address] [place], [address] CBC W/Diff, Automatedon 07-2 0-2024 Absolute Lymph 2.41 X10 3/uL Normal 0.83-4.51 [facility] Comment on above: Performed By: #### L 100.0100 ####[facility] [address] [place], [address] Absolute Neut 3.2 X10 3/uL Normal 2.0-7.7 [facility] Comment on above: Performed By: #### L 100.0100 ####[facility] [address] [place], [address] Basophils/100 WBC (Bld) 0.8 % Normal 0-1 [facility] Comment on above: Performed By: #### L 100.0100 ####[facility] [address] [place], [address] Eosinophils/100 WBC (Bld) 2.6 % Normal 0-5 [facility] Comment on above: Performed By: #### L 100.0100 ####[facility] [address] [place], [address] Erythrocyte distribution width (RBC) [Ratio] 13.6 % Normal 11.6-14.6 [facility] Comment on above: Performed By: #### L 100.0100 ####[facility] [address] [place], [address] Hematocrit (Bld) [Volume fraction] 39.7 % Normal 37-47 [facility] Comment on above: Performed By: #### L 100.0100 ####[facility] [address] [place], [address] Hemoglobin (Bld) [Mass/Vol] 13.2 g/dL Normal 12.0-15.0 [facility] Comment on above: Performed By: #### L 100.0100 ####[facility] [address] [place], [address] IG% 0.500 Normal 0.0-0.9 [facility] Comment on above: Result Comment: IG% - Immature Granulocytes (promyelocytes, myelocytes andmetamyelocytes) > 1% indicates that a LEFT SHIFT is Present. Performed By: #### L 100.0100 ####[facility] [address] [place], [address] Lymphocytes/100 WBC (Bld) 38.6 % Normal 19-41 [facility] Comment on above: Performed By: #### L 100.0100 ####[facility] [address] [place], [address] MCH (RBC) [Entitic mass] 29.0 pg Normal 27.0-32.0 [facility] Comment on above: Performed By: #### L 100.0100 ####[facility] [address] [place], [address] MCHC (RBC) [Mass/Vol] 33.2 g/dL Normal 32-36 [facility] Comment on above: Performed By: #### L 100.0100 ####[facility] [address] [place], [address] MCV (RBC) [Entitic vol] 87.3 fL Normal 81-99 [facility] Comment on above: Performed By: #### L 100.0100 ####[facility] [address] [place], [address] Monocytes/100 WBC (Bld) 5.9 % Normal 0-10 [facility] Comment on above: Performed By: #### L 100.0100 ####[facility] [address] [place], [address] Neutrophils/100 WBC (Bld) 51.6 % Normal 47-70 [facility] Comment on above: Performed By: #### L 100.0100 ####[facility] [address] [place], [address] Nucleated RBC (Bld) [#/Vol] 0 10*3/uL Normal 0-5 [facility] Comment on above: Performed By: #### L 100.0100 ####[facility] [address] [place], [address] Platelet mean volume (Bld) [Entitic vol] 9.2 fL Normal 6.2-12.0 [facility] Comment on above: Performed By: #### L 100.0100 ####[facility] [address] [place], [address] Platelets (Bld) [#/Vol] 221 10*3/uL Normal 150-450 [facility] Comment on above: Performed By: #### L 100.0100 ####[facility] [address] [place], [address] RBC (Bld) [#/Vol] 4.55 10*6/uL Normal 4.2-5.4 [facility] Comment on above: Performed By: #### L 100.0100 ####[facility] [address] [place], [address] RDW SD 42.8 fl Normal 35.1-43.9 [facility] Comment on above: Performed By: #### L 100.0100 ####[facility] [address] [place], [address] WBC (Bld) [#/Vol] 6.3 10*3/uL Normal 4.4-11.0 [facility] Comment on above: Performed By: #### L 100.0100 ####[facility] [address] [place], [address] MR/CON.PCM.NEon 03-17-2025 MR/CON.PCM.NE Normal [facility] Phosphoruson 03-17-2025 Phosphate [Mass/Vol] 3.2 mg/dL Normal 2.7-4.5 [facility] Comment on above: Performed By: #### L 500.2500, L501.2300 ####[facility] [address] [place], [address] Urine Cultureon 03-17-2025 URC Below infection leve l. Staphylococcus species [place] Count 1000-10,000 GPC Poss Enterococcus sp GPC Poss Enterococcus sp Normal [facility] Comment on above: Performed By: #### M 100.2200 ####[facility] [address] [place], [address] Bedside Glucoseon 03-16-2025 FINGERSTICK GLU 263 mg/dL High 74-106 [facility] Comment on above: Result Comment: MARCELLA GEMENT OF PATIENT CARE PER NURSING PROTOCOL Performed By: #### L 501.080 ####[facility] [address] [place], [address] FINGERSTICK GLU 294 mg/dL High 74-106 [facility] Comment on above: Result Comment: MARCELLA GEMENT OF PATIENT CARE PER NURSING PROTOCOL Performed By: #### L 501.080 ####[facility] [address] [place], [address] CBC W/Diff, Automatedon 02-26 Absolute Lymph 2.48 X10 3/uL Normal 0.83-4.51 [facility] Comment on above: Performed By: #### L 501.2300, L100.0100, L500.4100, L500.4050 ####[facility] [address] [place], [address] Absolute Neut 3.8 X10 3/uL Normal 2.0-7.7 [facility] Comment on above: Performed By: #### L 501.2300, L100.0100, L500.4100, L500.4050 ####[facility] [address] [place], [address] Basophils/100 WBC (Bld) 0.7 % Normal 0-1 [facility] Comment on above: Performed By: #### L 501.2300, L100.0100, L500.4100, L500.4050 ####[facility] [address] [place], [address] Eosinophils/100 WBC (Bld) 3.1 % Normal 0-5 [facility] Comment on above: Performed By: #### L 501.2300, L100.0100, L500.4100, L500.4050 ####[facility] [address] [place], [address] Erythrocyte distribution width (RBC) [Ratio] 13.9 % Normal 11.6-14.6 [facility] Comment on above: Performed By: #### L 501.2300, L100.0100, L500.4100, L500.4050 ####[facility] [address] [place], [address] Hematocrit (Bld) [Volume fraction] 40.6 % Normal 37-47 [facility] Comment on above: Performed By: #### L 501.2300, L100.0100, L500.4100, L500.4050 ####[facility] [address] [place], [address] Hemoglobin (Bld) [Mass/Vol] 13.1 g/dL Normal 12.0-15.0 [facility] Comment on above: Performed By: #### L 501.2300, L100.0100, L500.4100, L500.4050 ####[facility] [address] [place], [address] IG% 0.600 Normal 0.0-0.9 [facility] Comment on above: Result Comment: IG% - Immature Granulocytes (promyelocytes, myelocytes andmetamyelocytes) > 1% indicates that a LEFT SHIFT is Present. Performed By: #### L 501.2300, L100.0100, L500.4100, L500.4050 ####[facility] [address] [place], [address] Lymphocytes/100 WBC (Bld) 35.5 % Normal 19-41 [facility] Comment on above: Performed By: #### L 501.2300, L100.0100, L500.4100, L500.4050 ####[facility] [address] [place], [address] MCH (RBC) [Entitic mass] 29.0 pg Normal 27.0-32.0 [facility] Comment on above: Performed By: #### L 501.2300, L100.0100, L500.4100, L500.4050 ####[facility] [address] [place], [address] MCHC (RBC) [Mass/Vol] 32.3 g/dL Normal 32-36 [facility] Comment on above: Performed By: #### L 501.2300, L100.0100, L500.4100, L500.4050 ####[facility] [address] [place], [address] MCV (RBC) [Entitic vol] 90.0 fL Normal 81-99 [facility] Comment on above: Performed By: #### L 501.2300, L100.0100, L500.4100, L500.4050 ####[facility] [address] [place], [address] Monocytes/100 WBC (Bld) 6.4 % Normal 0-10 [facility] Comment on above: Performed By: #### L 501.2300, L100.0100, L500.4100, L500.4050 ####[facility] [address] [place], [address] Neutrophils/100 WBC (Bld) 53.7 % Normal 47-70 [facility] Comment on above: Performed By: #### L 501.2300, L100.0100, L500.4100, L500.4050 ####[facility] [address] [place], [address] Nucleated RBC (Bld) [#/Vol] 0 10*3/uL Normal 0-5 [facility] Comment on above: Performed By: #### L 501.2300, L100.0100, L500.4100, L500.4050 ####[facility] [address] [place], [address] Platelet mean volume (Bld) [Entitic vol] 9.2 fL Normal 6.2-12.0 [facility] Comment on above: Performed By: #### L 501.2300, L100.0100, L500.4100, L500.4050 ####[facility] [address] [place], [address] Platelets (Bld) [#/Vol] 221 10*3/uL Normal 150-450 [facility] Comment on above: Performed By: #### L 501.2300, L100.0100, L500.4100, L500.4050 ####[facility] [address] [place], [address] RBC (Bld) [#/Vol] 4.51 10*6/uL Normal 4.2-5.4 [facility] Comment on above: Performed By: #### L 501.2300, L100.0100, L500.4100, L500.4050 ####[facility] [address] [place], [address] RDW SD 45.9 fl High 35.1-43.9 [facility] Comment on above: Performed By: #### L 501.2300, L100.0100, L500.4100, L500.4050 ####[facility] [address] [place], [address] WBC (Bld) [#/Vol] 7.0 10*3/uL Normal 4.4-11.0 [facility] Comment on above: Performed By: #### L 501.2300, L100.0100, L500.4100, L500.4050 ####[facility] [address] [place], [address] Comprehensive Metabolic Prof [facility] 03-16-2025 Albumin [Mass/Vol] 3.5 g/dL Normal 3.4-4.8 [facility] Comment on above: Performed By: #### L 501.2300, L100.0100, L500.4100, L500.4050 ####[facility] [address] [place], [address] Albumin/Globulin [Mass ratio] 1.1 {ratio} Normal 0.9-2.4 [facility] Comment on above: Performed By: #### L 501.2300, L100.0100, L500.4100, L500.4050 ####[facility] [address] [place], [address] ALK PHOS 114 U/L High 35-104 [facility] Comment on above: Performed By: #### L 501.2300, L100.0100, L500.4100, L500.4050 ####[facility] [address] [place], [address] ALT [Catalytic activity/Vol] 42 U/L High <=34 [facility] Comment on above: Performed By: #### L 501.2300, L100.0100, L500.4100, L500.4050 ####[facility] [address] [place], [address] AST [Catalytic activity/Vol] 71 U/L High <=31 [facility] Comment on above: Performed By: #### L 501.2300, L100.0100, L500.4100, L500.4050 ####[facility] [address] [place], [address] Bilirubin [Mass/Vol] 0.31 mg/dL Normal 0.00-1.30 [facility] Comment on above: Performed By: #### L 501.2300, L100.0100, L500.4100, L500.4050 ####[facility] [address] [place], [address] BUN/CRE 16.5 RATIO Normal 10-20 [facility] Comment on above: Performed By: #### L 501.2300, L100.0100, L500.4100, L500.4050 ####[facility] [address] [place], [address] Calcium [Mass/Vol] 8.6 mg/dL Normal 7.6-11.0 [facility] Comment on above: Performed By: #### L 501.2300, L100.0100, L500.4100, L500.4050 ####[facility] [address] [place], [address] Chloride [Moles/Vol] 103 mmol/L Normal 98-108 [facility] Comment on above: Performed By: #### L 501.2300, L100.0100, L500.4100, L500.4050 ####[facility] [address] [place], [address] CO2 [Moles/Vol] 26.0 mmol/L Normal 21.0-32.0 [facility] Comment on above: Performed By: #### L 501.2300, L100.0100, L500.4100, L500.4050 ####[facility] [address] [place], [address] Creatinine [Mass/Vol] 0.68 mg/dL Low 0.70-1.20 [facility] Comment on above: Performed By: #### L 501.2300, L100.0100, L500.4100, L500.4050 ####[facility] [address] [place], [address] ECRCL 88.47 ml/min Normal 50-250 [facility] Comment on above: Performed By: #### L 501.2300, L100.0100, L500.4100, L500.4050 ####[facility] [address] [place], [address] GAP 10 Normal 5-15 [facility] Comment on above: Performed By: #### L 501.2300, L100.0100, L500.4100, L500.4050 ####[facility] [address] [place], [address] GFR/1.73 sq M.predicted among non-blacks MDRD (S/P/Bld) [Vol rate/Area] 96 mL/min/{1.73_m2} Normal >60 [facility] Comment on above: Result Comment: mL/m in/1.73m2 CKD-EPI Creatinine Equation (2020) Performed By: #### L 501.2300, L100.0100, L500.4100, L500.4050 ####[facility] [address] [place], [address] Globulin (S) [Mass/Vol] 3.1 g/dL Normal 2.2-4.2 [facility] Comment on above: Performed By: #### L 501.2300, L100.0100, L500.4100, L500.4050 ####[facility] [address] [place], [address] Glucose [Mass/Vol] 223 mg/dL High 70-99 [facility] Comment on above: Performed By: #### L 501.2300, L100.0100, L500.4100, L500.4050 ####[facility] [address] [place], [address] Potassium [Moles/Vol] 4.2 mmol/L Normal 3.3-5.1 [facility] Comment on above: Performed By: #### L 501.2300, L100.0100, L500.4100, L500.4050 ####[facility] [address] [place], [address] Sodium [Moles/Vol] 139 mmol/L Normal 133-145 [facility] Comment on above: Performed By: #### L 501.2300, L100.0100, L500.4100, L500.4050 ####[facility] [address] [place], [address] T PROT 6.6 g/dL Normal 5.9-8.4 [facility] Comment on above: Performed By: #### L 501.2300, L100.0100, L500.4100, L500.4050 ####[facility] [address] [place], [address] Urea nitrogen [Mass/Vol] 11 mg/dL Normal - [facility] Comment on above: Performed By: #### L 501.2300, L100.0100, L500.4100, L500.4050 ####[facility] [address] [place], [address] Folates,Serum (Folic Acid)on 03-16-2025 FOLATES,SERUM 28.80 ng/mL Normal 4.60-34.80 [facility] Comment on above: Result Comment: Hemo lysis, Results will be affected, Requires Recollection. Performed By: #### L 501.5200, L501.9520, L506.0200, L501.9985 ####[facility] [address] [place], [address] Lipid Profileon 03-16-2025 CHOL:HDL 6.32 Normal [facility] Comment on above: Performed By: #### L 501.2300, L100.0100, L500.4100, L500.4050 ####[facility] [address] [place], [address] Cholesterol [Mass/Vol] 168 mg/dL Normal <=200 [facility] Comment on above: Result Comment: Chol esterol level, Desirable <200 mg/dLBorderline high cholesterol 200-239 mg/dLHigh cholesterol >=240 mg/dLRecommendations of the NCEP Adult Treatment Panel for thefollowing risk-cutoff thresholds for the [place] Americanpopulation. Performed By: #### L 501.2300, L100.0100, L500.4100, L500.4050 ####[facility] [address] [place], [address] Cholesterol in HDL [Mass/Vol] 27 mg/dL Low [facility] Comment on above: Result Comment: Margie onal Cholesterol Education Program (NCEP) guidelines:<40 mg/dL: Low HDL-cholesterol (major risk factor for CHD)>= 60 mg/dL: High HDL-cholesterol (negative risk factor forCHD)HDL-cholesterol is affected by a number of factors, e.g.smoking, exercise, hormones, sex and age. Performed By: #### L 501.2300, L100.0100, L500.4100, L500.4050 ####[facility] [address] [place], [address] Cholesterol in LDL [Mass/Vol] -17 mg/dL Normal [facility] Comment on above: Result Comment: Bord ddjmxh=548-931 mg/dL Higher Wugy=275 mg/dL or greater Performed By: #### L 501.2300, L100.0100, L500.4100, L500.4050 ####[facility] [address] [place], [address] Cholesterol in VLDL [Mass/Vol] 159 mg/dL High 5-40 [facility] Comment on above: Performed By: #### L 501.2300, L100.0100, L500.4100, L500.4050 ####[facility] [address] [place], [address] Triglyceride [Mass/Vol] 793 mg/dL High [facility] Comment on above: Result Comment: The drugs N-Acetylcysteine and Metamizole may falselydepress this assay.Normal range: <150 mg/dLBorderline High: 150-199 mg/dLHigh: 200-499 mg/dLVery High: >500 mg/dL Performed By: #### L 501.2300, L100.0100, L500.4100, L500.4050 ####[facility] [address] [place], [address] Phosphoruson 03-16-2025 Phosphate [Mass/Vol] 3.6 mg/dL Normal 2.7-4.5 [facility] Comment on above: Performed By: #### L 501.2300, L100.0100, L500.4100, L500.4050 ####[facility] [address] [place], [address] Vitamin B12on 03-16-2025 Cobalamin (Vitamin B12) [Mass/Vol] 709 pg/mL Normal 180-914 [facility] Comment on above: Performed By: #### L 503.0106 ####[facility] [address] [place], [address] Ammoniaon 03-15-2025 Ammonia (P) [Moles/Vol] 30.7 umol/L Normal 11-51 [facility] Comment on above: Performed By: #### L 503.5510 ####[facility] [address] [place], [address] Bedside Glucoseon 03-15-2025 FINGERSTICK GLU 204 mg/dL High 74-106 [facility] Comment on above: Result Comment: MARCELLA GEMENT OF PATIENT CARE PER NURSING PROTOCOL Performed By: #### L 501.080 ####[facility] [address] [place], [address] FINGERSTICK GLU 250 mg/dL High 74-106 [facility] Comment on above: Result Comment: MARCELLA GEMENT OF PATIENT CARE PER NURSING PROTOCOL Performed By: #### L 501.080 ####[facility] [address] [place], [address] Brain/Head without Contrasto n 03-15-2024 Brain/Head without Contrast Normal [facility] CBC W/Diff, Automatedon 07- Absolute Lymph 2.75 X10 3/uL Normal 0.83-4.51 [facility] Comment on above: Performed By: #### L 500.4050, L501.2450, L100.0100 ####[facility] [address] [place], [address] Absolute Neut 5.4 X10 3/uL Normal 2.0-7.7 [facility] Comment on above: Performed By: #### L 500.4050, L501.2450, L100.0100 ####[facility] [address] [place], [address] Basophils/100 WBC (Bld) 0.6 % Normal 0-1 [facility] Comment on above: Performed By: #### L 500.4050, L501.2450, L100.0100 ####[facility] [address] [place], [address] Eosinophils/100 WBC (Bld) 2.8 % Normal 0-5 [facility] Comment on above: Performed By: #### L 500.4050, L501.2450, L100.0100 ####[facility] [address] [place], [address] Erythrocyte distribution width (RBC) [Ratio] 13.7 % Normal 11.6-14.6 [facility] Comment on above: Performed By: #### L 500.4050, L501.2450, L100.0100 ####[facility] [address] [place], [address] Hematocrit (Bld) [Volume fraction] 39.5 % Normal 37-47 [facility] Comment on above: Performed By: #### L 500.4050, L501.2450, L100.0100 ####[facility] [address] [place], [address] Hemoglobin (Bld) [Mass/Vol] 13.0 g/dL Normal 12.0-15.0 [facility] Comment on above: Performed By: #### L 500.4050, L501.2450, L100.0100 ####[facility] [address] [place], [address] IG% 0.600 Normal 0.0-0.9 [facility] Comment on above: Result Comment: IG% - Immature Granulocytes (promyelocytes, myelocytes andmetamyelocytes) > 1% indicates that a LEFT SHIFT is Present. Performed By: #### L 500.4050, L501.2450, L100.0100 ####[facility] [address] [place], [address] Lymphocytes/100 WBC (Bld) 30.4 % Normal 19-41 [facility] Comment on above: Performed By: #### L 500.4050, L501.2450, L100.0100 ####[facility] [address] [place], [address] MCH (RBC) [Entitic mass] 29.0 pg Normal 27.0-32.0 [facility] Comment on above: Performed By: #### L 500.4050, L501.2450, L100.0100 ####[facility] [address] [place], [address] MCHC (RBC) [Mass/Vol] 32.9 g/dL Normal 32-36 [facility] Comment on above: Performed By: #### L 500.4050, L501.2450, L100.0100 ####[facility] [address] [place], [address] MCV (RBC) [Entitic vol] 88.0 fL Normal 81-99 [facility] Comment on above: Performed By: #### L 500.4050, L501.2450, L100.0100 ####[facility] [address] [place], [address] Monocytes/100 WBC (Bld) 6.4 % Normal 0-10 [facility] Comment on above: Performed By: #### L 500.4050, L501.2450, L100.0100 ####[facility] [address] [place], [address] Neutrophils/100 WBC (Bld) 59.2 % Normal 47-70 [facility] Comment on above: Performed By: #### L 500.4050, L501.2450, L100.0100 ####[facility] [address] [place], [address] Nucleated RBC (Bld) [#/Vol] 0 10*3/uL Normal 0-5 [facility] Comment on above: Performed By: #### L 500.4050, L501.2450, L100.0100 ####[facility] [address] [place], [address] Platelet mean volume (Bld) [Entitic vol] 9.5 fL Normal 6.2-12.0 [facility] Comment on above: Performed By: #### L 500.4050, L501.2450, L100.0100 ####[facility] [address] [place], [address] Platelets (Bld) [#/Vol] 234 10*3/uL Normal 150-450 [facility] Comment on above: Performed By: #### L 500.4050, L501.2450, L100.0100 ####[facility] [address] [place], [address] RBC (Bld) [#/Vol] 4.49 10*6/uL Normal 4.2-5.4 [facility] Comment on above: Performed By: #### L 500.4050, L501.2450, L100.0100 ####[facility] [address] [place], [address] RDW SD 43.7 fl Normal 35.1-43.9 [facility] Comment on above: Performed By: #### L 500.4050, L501.2450, L100.0100 ####[facility] [address] [place], [address] WBC (Bld) [#/Vol] 9.1 10*3/uL Normal 4.4-11.0 [facility] Comment on above: Performed By: #### L 500.4050, L501.2450, L100.0100 ####[facility] [address] [place], [address] Comprehensive Metabolic [facility] 03-15-2025 Albumin [Mass/Vol] 3.5 g/dL Normal 3.4-4.8 [facility] Comment on above: Performed By: #### L 500.4050, L501.2450, L100.0100 ####[facility] [address] [place], [address] Albumin/Globulin [Mass ratio] 1.1 {ratio} Normal 0.9-2.4 [facility] Comment on above: Performed By: #### L 500.4050, L501.2450, L100.0100 ####[facility] [address] [place], [address] ALK PHOS 117 U/L High 35-104 [facility] Comment on above: Performed By: #### L 500.4050, L501.2450, L100.0100 ####[facility] [address] [place], [address] ALT [Catalytic activity/Vol] 41 U/L High <=34 [facility] Comment on above: Performed By: #### L 500.4050, L501.2450, L100.0100 ####[facility] [address] [place], [address] AST [Catalytic activity/Vol] 60 U/L High <=31 [facility] Comment on above: Result Comment: Hemo lysis present, Results??could be affected.?? Performed By: #### L 500.4050, L501.2450, L100.0100 ####[facility] [address] [place], [address] Bilirubin [Mass/Vol] 0.25 mg/dL Normal 0.00-1.30 [facility] Comment on above: Performed By: #### L 500.4050, L501.2450, L100.0100 ####[facility] [address] [place], [address] BUN/CRE 22.8 RATIO High 10-20 [facility] Comment on above: Performed By: #### L 500.4050, L501.2450, L100.0100 ####[facility] [address] [place], [address] Calcium [Mass/Vol] 8.6 mg/dL Normal 7.6-11.0 [facility] Comment on above: Performed By: #### L 500.4050, L501.2450, L100.0100 ####[facility] [address] [place], [address] Chloride [Moles/Vol] 101 mmol/L Normal 98-108 [facility] Comment on above: Performed By: #### L 500.4050, L501.2450, L100.0100 ####[facility] [address] [place], [address] CO2 [Moles/Vol] 23.9 mmol/L Normal 21.0-32.0 [facility] Comment on above: Performed By: #### L 500.4050, L501.2450, L100.0100 ####[facility] [address] [place], [address] Creatinine [Mass/Vol] 0.64 mg/dL Low 0.70-1.20 [facility] Comment on above: Performed By: #### L 500.4050, L501.2450, L100.0100 ####[facility] [address] [place], [address] ECRCL 87.16 ml/min Normal 50-250 [facility] Comment on above: Performed By: #### L 500.4050, L501.2450, L100.0100 ####[facility] [address] [place], [address] GAP 12 Normal 5-15 [facility] Comment on above: Performed By: #### L 500.4050, L501.2450, L100.0100 ####[facility] [address] [place], [address] GFR/1.73 sq M.predicted among non-blacks MDRD (S/P/Bld) [Vol rate/Area] 97 mL/min/{1.73_m2} Normal >60 [facility] Comment on above: Result Comment: mL/m in/1.73m2 CKD-EPI Creatinine Equation (2020) Performed By: #### L 500.4050, L501.2450, L100.0100 ####[facility] [address] [place], [address] Globulin (S) [Mass/Vol] 3.1 g/dL Normal 2.2-4.2 [facility] Comment on above: Performed By: #### L 500.4050, L501.2450, L100.0100 ####[facility] [address] [place], [address] Glucose [Mass/Vol] 239 mg/dL High 70-99 [facility] Comment on above: Performed By: #### L 500.4050, L501.2450, L100.0100 ####[facility] [address] [place], [address] Potassium [Moles/Vol] 3.9 mmol/L Normal 3.3-5.1 [facility] Comment on above: Result Comment: Hemo lysis present, Results??could be affected.?? Performed By: #### L 500.4050, L501.2450, L100.0100 ####[facility] [address] [place], [address] Sodium [Moles/Vol] 137 mmol/L Normal 133-145 [facility] Comment on above: Performed By: #### L 500.4050, L501.2450, L100.0100 ####[facility] [address] [place], [address] T PROT 6.6 g/dL Normal 5.9-8.4 [facility] Comment on above: Performed By: #### L 500.4050, L501.2450, L100.0100 ####[facility] [address] [place], [address] Urea nitrogen [Mass/Vol] 15 mg/dL Normal 4-19 [facility] Comment on above: Performed By: #### L 500.4050, L501.2450, L100.0100 ####[facility] [address] [place], [address] Emergency Department Summary on 03-15-2025 Emergency Department Summary Normal [facility] H AND P Exam - Hospitaliston 03-15-2025 H&P Exam - Hospitalist Normal [facility] Hemoglobin A1con 03-15-2025 HbA1c (Bld) [Mass fraction] 11.7 % High <=5.6 [facility] Comment on above: Result Comment: Norm al < 5.7 % Prediabetic 5.7 - 6.4 % Diabetic >or= 6.5 % Please note range changes. Performed By: #### L 501.5200, L501.9520, L506.0200, L501.9985 ####[facility] [address] [place], [address] Lipaseon 03-15-2025 Lipase [Catalytic activity/Vol] 33 U/L Normal 13-75 [facility] Comment on above: Result Comment: Sherri martinez note:LIPASE revised reference range effective 22.New Lipase methodology. Expected to produce lower valuesthan the previous assay method.NEW Reference Range: 13 - 75 U/L Performed By: #### L 500.4050, L501.2450, L100.0100 ####[facility] [address] [place], [address] Magnesiumon 03-15-2025 Magnesium [Mass/Vol] 1.8 mg/dL Normal 1.5-2.2 [facility] Comment on above: Performed By: #### L 501.5200, L501.9520, L506.0200, L501.9985 ####[facility] [address] [place], [address] Thyroid Stim Hormone (TSH)on 03-15-2025 TSH 1.540 uIU/mL Normal 0.300-4.200 [facility] Comment on above: Performed By: #### L 501.5200, L501.9520, L506.0200, L501.9985 ####[facility] [address] [place], [address] Urinalysis, Completeon 03-15 BACTERIA 2+ /hpf Normal None Seen [facility] Comment on above: Order Comment: COLLE CTOR TO SPECIFY Performed By: #### L 400.0001 ####[facility] [address] [place], [address] EPI,SQUAMOUS 5-10 SEEN Normal 5-10 [facility] Comment on above: Order Comment: COLLE CTOR TO SPECIFY Performed By: #### L 400.0001 ####[facility] [address] [place], [address] WBC 10-25 SEEN Normal 0-5 [facility] Comment on above: Order Comment: COLLE CTOR TO SPECIFY Performed By: #### L 400.0001 ####[facility] [address] [facility] [address] Mucus Ql (Urine sed) 0 SEEN Normal [facility] Comment on above: Order Comment: COLLE CTOR TO SPECIFY Performed By: #### L 400.0001 ####[facility] [address] [place] [id number] RBC 0 SEEN Normal 0-5 [facility] Comment on above: Order Comment: COLLE CTOR TO SPECIFY Performed By: #### L 400.0001 ####[facility] [address] [place] [address] Urine Drug Screen (VISTA)on 03-15-2025 AMPHETAMINES Normal <1000 ng/mL [facility] Comment on above: Result Comment: BOB ENT DISCHARGED. SPECIMEN NOT RECEIVED. Performed By: #### L 505.5000 ####[facility] [address] [facility] [address] BARBITIURATES Normal < 200 ng/mL [facility] Comment on above: Result Comment: BOB ENT DISCHARGED. SPECIMEN NOT RECEIVED. Performed By: #### L 505.5000 ####[facility] [address] [place] [address] BENZODIAZIPINE Normal < 200 ng/mL [facility] Comment on above: Result Comment: BOB ENT DISCHARGED. SPECIMEN NOT RECEIVED. Performed By: #### L 505.5000 ####[facility] [address] [facility] [address] BUP Ur Drug Scr Normal < 200 ng/mL [facility] Comment on above: Result Comment: BOB ENT DISCHARGED. SPECIMEN NOT RECEIVED. Performed By: #### L 505.5000 ####[facility] [address] [place] [address] COCAINE Normal < 300 ng/mL [facility] Comment on above: Result Comment: BOB ENT DISCHARGED. SPECIMEN NOT RECEIVED. Performed By: #### L 505.5000 ####[facility] [address] [place] [id number] Fentanyl Normal [facility] Comment on above: Result Comment: BOB ENT DISCHARGED. SPECIMEN NOT RECEIVED. Performed By: #### L 505.5000 ####[facility] [address] [place], [address] METHADONE Normal < 300 ng/mL [facility] Comment on above: Result Comment: BOB ENT DISCHARGED. SPECIMEN NOT RECEIVED. Performed By: #### L 505.5000 ####[facility] [address] [place] [address] OPIATES Normal < 300 ng/mL [facility] Comment on above: Result Comment: BOB ENT DISCHARGED. SPECIMEN NOT RECEIVED. Performed By: #### L 505.5000 ####[facility] [address] [place] [address] OXYCODONE Normal < 100 ng/mL [facility] Comment on above: Result Comment: BOB ENT DISCHARGED. SPECIMEN NOT RECEIVED. Performed By: #### L 505.5000 ####[facility] [address] [place] [address] PCP Normal < 25 ng/mL [facility] Comment on above: Result Comment: BOB ENT DISCHARGED. SPECIMEN NOT RECEIVED. Performed By: #### L 505.5000 ####[facility] [address] [place] [address] THC Normal < 50 ng/mL [facility] Comment on above: Result Comment: BOB ENT DISCHARGED. SPECIMEN NOT RECEIVED. Performed By: #### L 505.5000 ####[facility] [address] [place], [address] Venous Blood Gason 5 Blood Gas Type REJI Normal [facility] Comment on above: Performed By: #### L 9000.0810 ####[facility] [address] [place], [address] CO2 [Moles/Vol] 32 mmol/L Normal 23-33 [facility] Comment on above: Performed By: #### L 9000.0810 ####[facility] [address] [place], [address] HCO3 (Bld) [Moles/Vol] 30 mmol/L High 22-26 [facility] Comment on above: Performed By: #### L 9000.0810 ####[facility] [address] [place], [address] O2 Delivery Dev Not entered Normal [facility] Comment on above: Performed By: #### L 9000.0810 ####[facility] [address] [place], [address] SITE Not entered Normal [facility] Comment on above: Performed By: #### L 9000.0810 ####[facility] [address] [place], [address] VBG BE 6 mmol/L High -1.0-3.5 [facility] Comment on above: Performed By: #### L 9000.0810 ####[facility] [address] [place], [address] VBG pCO2 48.2 mmHg Normal 41-51 [facility] Comment on above: Performed By: #### L 9000.0810 ####[facility] [address] [place], [address] VBG pH 7.41 Normal 7.32-7.42 [facility] Comment on above: Performed By: #### L 9000.0810 ####[facility] [address] [place], [address] VBG PO2 58 mmHg High 25-40 [facility] Comment on above: Performed By: #### L 9000.0810 ####[facility] [address] [place], [address] VBG SO2 89 High 50-70 [facility] Comment on above: Performed By: #### L 9000.0810 ####[facility] [address] [place], [address] MR/BMS.BPon 03-11-2025 MR/BMS.BP Normal [facility] Extremity Lower without Cont raon 02-09-2025 Extremity Lower without Contra Normal [facility] CBC W/Diff, Automatedon Absolute Lymph 2.35 X10 3/uL Normal 0.83-4.51 [facility] Comment on above: Performed By: #### L 500.4050, L100.0100, L501.1400, L501.6710, L501.96278, L501.5200, L506.0400, L501.2450, L101.9900, L501.9520 ####[facility] [address] [place], [address] Absolute Neut 6.7 X10 3/uL Normal 2.0-7.7 [facility] Comment on above: Performed By: #### L 500.4050, L100.0100, L501.1400, L501.6710, L501.72778, L501.5200, L506.0400, L501.2450, L101.9900, L501.9520 ####[facility] [address] [place], [address] Basophils/100 WBC (Bld) 0.6 % Normal 0-1 [facility] Comment on above: Performed By: #### L 500.4050, L100.0100, L501.1400, L501.6710, L501.60103, L501.5200, L506.0400, L501.2450, L101.9900, L501.9520 ####[facility] [address] [place], [address] Eosinophils/100 WBC (Bld) 1.0 % Normal 0-5 [facility] Comment on above: Performed By: #### L 500.4050, L100.0100, L501.1400, L501.6710, L501.39419, L501.5200, L506.0400, L501.2450, L101.9900, L501.9520 ####[facility] [address] [place], [address] Erythrocyte distribution width (RBC) [Ratio] 13.2 % Normal 11.6-14.6 [facility] Comment on above: Performed By: #### L 500.4050, L100.0100, L501.1400, L501.6710, L501.29831, L501.5200, L506.0400, L501.2450, L101.9900, L501.9520 ####[facility] [address] [place], [address] Hematocrit (Bld) [Volume fraction] 43.4 % Normal 37-47 [facility] Comment on above: Performed By: #### L 500.4050, L100.0100, L501.1400, L501.6710, L501.00748, L501.5200, L506.0400, L501.2450, L101.9900, L501.9520 ####[facility] [address] [place], [address] Hemoglobin (Bld) [Mass/Vol] 14.5 g/dL Normal 12.0-15.0 [facility] Comment on above: Performed By: #### L 500.4050, L100.0100, L501.1400, L501.6710, L501.34850, L501.5200, L506.0400, L501.2450, L101.9900, L501.9520 ####[facility] [address] [place], [address] IG% 0.500 Normal 0.0-0.9 [facility] Comment on above: Result Comment: IG% - Immature Granulocytes (promyelocytes, myelocytes andmetamyelocytes) > 1% indicates that a LEFT SHIFT is Present. Performed By: #### L 500.4050, L100.0100, L501.1400, L501.6710, L501.25269, L501.5200, L506.0400, L501.2450, L101.9900, L501.9520 ####[facility] [address] [place], [address] Lymphocytes/100 WBC (Bld) 24.2 % Normal 19-41 [facility] Comment on above: Performed By: #### L 500.4050, L100.0100, L501.1400, L501.6710, L501.74568, L501.5200, L506.0400, L501.2450, L101.9900, L501.9520 ####[facility] [address] [place], [address] MCH (RBC) [Entitic mass] 29.4 pg Normal 27.0-32.0 [facility] Comment on above: Performed By: #### L 500.4050, L100.0100, L501.1400, L501.6710, L501.23482, L501.5200, L506.0400, L501.2450, L101.9900, L501.9520 ####[facility] [address] [place], [address] MCHC (RBC) [Mass/Vol] 33.4 g/dL Normal 32-36 [facility] Comment on above: Performed By: #### L 500.4050, L100.0100, L501.1400, L501.6710, L501.15432, L501.5200, L506.0400, L501.2450, L101.9900, L501.9520 ####[facility] [address] [place], [address] MCV (RBC) [Entitic vol] 87.9 fL Normal 81-99 [facility] Comment on above: Performed By: #### L 500.4050, L100.0100, L501.1400, L501.6710, L501.54695, L501.5200, L506.0400, L501.2450, L101.9900, L501.9520 ####[facility] [address] [place], [address] Monocytes/100 WBC (Bld) 5.1 % Normal 0-10 [facility] Comment on above: Performed By: #### L 500.4050, L100.0100, L501.1400, L501.6710, L501.10256, L501.5200, L506.0400, L501.2450, L101.9900, L501.9520 ####[facility] [address] [place], [address] Neutrophils/100 WBC (Bld) 68.6 % Normal 47-70 [facility] Comment on above: Performed By: #### L 500.4050, L100.0100, L501.1400, L501.6710, L501.94893, L501.5200, L506.0400, L501.2450, L101.9900, L501.9520 ####[facility] [address] [place], [address] Nucleated RBC (Bld) [#/Vol] 0 10*3/uL Normal 0-5 [facility] Comment on above: Performed By: #### L 500.4050, L100.0100, L501.1400, L501.6710, L501.56849, L501.5200, L506.0400, L501.2450, L101.9900, L501.9520 ####[facility] [address] [place], [place], [phone](385) Platelet mean volume (Bld) [Entitic vol] 9.6 fL Normal 6.2-12.0 [facility] Comment on above: Performed By: #### L 500.4050, L100.0100, L501.1400, L501.6710, L501.63360, L501.5200, L506.0400, L501.2450, L101.9900, L501.9520 ####[facility] [address] [place], [place], [phone](169) Platelets (Bld) [#/Vol] 251 10*3/uL Normal 150-450 [facility] Comment on above: Performed By: #### L 500.4050, L100.0100, L501.1400, L501.6710, L501.98475, L501.5200, L506.0400, L501.2450, L101.9900, L501.9520 ####[facility] [address] [place], [place], [phone](332) RBC (Bld) [#/Vol] 4.94 10*6/uL Normal 4.2-5.4 [facility] Comment on above: Performed By: #### L 500.4050, L100.0100, L501.1400, L501.6710, L501.61380, L501.5200, L506.0400, L501.2450, L101.9900, L501.9520 ####[facility] [address] [place], [place], [phone](165) RDW SD 41.8 fl Normal 35.1-43.9 [facility] Comment on above: Performed By: #### L 500.4050, L100.0100, L501.1400, L501.6710, L501.31443, L501.5200, L506.0400, L501.2450, L101.9900, L501.9520 ####[facility] [address] [place], [place], [phone] WBC (Bld) [#/Vol] 9.7 10*3/uL Normal 4.4-11.0 [facility] Comment on above: Performed By: #### L 500.4050, L100.0100, L501.1400, L501.6710, L501.49730, L501.5200, L506.0400, L501.2450, L101.9900, L501.9520 ####[facility] [address] [place], [place], [phone] CRPon 02-04-2025 C-REACTIVE PROT 11.80 mg/L High 0.0-3.0 [facility] Comment on above: Performed By: #### L 500.4050, L100.0100, L501.1400, L501.6710, L501.86487, L501.5200, L506.0400, L501.2450, L101.9900, L501.9520 ####[facility] [address] [place], [place], [phone] Comprehensive Metabolic Prof ilon 02-04-2025 Albumin [Mass/Vol] 4.3 g/dL Normal 3.4-4.8 [facility] Comment on above: Performed By: #### L 500.4050, L100.0100, L501.1400, L501.6710, L501.06525, L501.5200, L506.0400, L501.2450, L101.9900, L501.9520 ####[facility] [address] [place], [address] Albumin/Globulin [Mass ratio] 1.4 {ratio} Normal 0.9-2.4 [facility] Comment on above: Performed By: #### L 500.4050, L100.0100, L501.1400, L501.6710, L501.20370, L501.5200, L506.0400, L501.2450, L101.9900, L501.9520 ####[facility] [address] [place], [place], [phone] ALK PHOS 112 U/L High 35-104 [facility] Comment on above: Performed By: #### L 500.4050, L100.0100, L501.1400, L501.6710, L501.23401, L501.5200, L506.0400, L501.2450, L101.9900, L501.9520 ####[facility] [address] [place], [place], [phone](252) ALT [Catalytic activity/Vol] 80 U/L High <=34 [facility] Comment on above: Performed By: #### L 500.4050, L100.0100, L501.1400, L501.6710, L501.50020, L501.5200, L506.0400, L501.2450, L101.9900, L501.9520 ####[facility] [address] [place], [address] AST [Catalytic activity/Vol] 60 U/L High <=31 [facility] Comment on above: Performed By: #### L 500.4050, L100.0100, L501.1400, L501.6710, L501.79843, L501.5200, L506.0400, L501.2450, L101.9900, L501.9520 ####[facility] [address] [place], [address] Bilirubin [Mass/Vol] 0.40 mg/dL Normal 0.00-1.30 [facility] Comment on above: Performed By: #### L 500.4050, L100.0100, L501.1400, L501.6710, L501.56747, L501.5200, L506.0400, L501.2450, L101.9900, L501.9520 ####[facility] [address] [place], [address] BUN/CRE 13.8 RATIO Normal 10-20 [facility] Comment on above: Performed By: #### L 500.4050, L100.0100, L501.1400, L501.6710, L501.89693, L501.5200, L506.0400, L501.2450, L101.9900, L501.9520 ####[facility] [address] [place], [address] Calcium [Mass/Vol] 9.5 mg/dL Normal 7.6-11.0 [facility] Comment on above: Performed By: #### L 500.4050, L100.0100, L501.1400, L501.6710, L501.79669, L501.5200, L506.0400, L501.2450, L101.9900, L501.9520 ####[facility] [address] [place], [address] Chloride [Moles/Vol] 101 mmol/L Normal 98-108 [facility] Comment on above: Performed By: #### L 500.4050, L100.0100, L501.1400, L501.6710, L501.91265, L501.5200, L506.0400, L501.2450, L101.9900, L501.9520 ####[facility] [address] [place], [address] CO2 [Moles/Vol] 24.5 mmol/L Normal 21.0-32.0 [facility] Comment on above: Performed By: #### L 500.4050, L100.0100, L501.1400, L501.6710, L501.49218, L501.5200, L506.0400, L501.2450, L101.9900, L501.9520 ####[facility] [address] [place], [place], [phone] Creatinine [Mass/Vol] 0.78 mg/dL Normal 0.70-1.20 [facility] Comment on above: Performed By: #### L 500.4050, L100.0100, L501.1400, L501.6710, L501.19530, L501.5200, L506.0400, L501.2450, L101.9900, L501.9520 ####[facility] [address] [place], [place], [phone] GAP 16 High 5-15 [facility] Comment on above: Performed By: #### L 500.4050, L100.0100, L501.1400, L501.6710, L501.11809, L501.5200, L506.0400, L501.2450, L101.9900, L501.9520 ####[facility] [address] [place], [place], [phone] GFR/1.73 sq M.predicted among non-blacks MDRD (S/P/Bld) [Vol rate/Area] 84 mL/min/{1.73_m2} Normal >60 [facility] Comment on above: Result Comment: mL/m in/1.73m2 CKD-EPI Creatinine Equation (2020) Performed By: #### L 500.4050, L100.0100, L501.1400, L501.6710, L501.84693, L501.5200, L506.0400, L501.2450, L101.9900, L501.9520 ####[facility] [address] [place], [address] Globulin (S) [Mass/Vol] 3.1 g/dL Normal 2.2-4.2 [facility] Comment on above: Performed By: #### L 500.4050, L100.0100, L501.1400, L501.6710, L501.92858, L501.5200, L506.0400, L501.2450, L101.9900, L501.9520 ####[facility] [address] [place], [address] Glucose [Mass/Vol] 247 mg/dL High 70-99 [facility] Comment on above: Performed By: #### L 500.4050, L100.0100, L501.1400, L501.6710, L501.02162, L501.5200, L506.0400, L501.2450, L101.9900, L501.9520 ####[facility] [address] [place], [address] Potassium [Moles/Vol] 4.6 mmol/L Normal 3.3-5.1 [facility] Comment on above: Performed By: #### L 500.4050, L100.0100, L501.1400, L501.6710, L501.06029, L501.5200, L506.0400, L501.2450, L101.9900, L501.9520 ####[facility] [address] [place], [address] Sodium [Moles/Vol] 141 mmol/L Normal 133-145 [facility] Comment on above: Performed By: #### L 500.4050, L100.0100, L501.1400, L501.6710, L501.53050, L501.5200, L506.0400, L501.2450, L101.9900, L501.9520 ####[facility] [address] [place], [place], [phone] T PROT 7.4 g/dL Normal 5.9-8.4 [facility] Comment on above: Performed By: #### L 500.4050, L100.0100, L501.1400, L501.6710, L501.72340, L501.5200, L506.0400, L501.2450, L101.9900, L501.9520 ####[facility] [address] [place], [place], [phone] Urea nitrogen [Mass/Vol] 11 mg/dL Normal 4-19 [facility] Comment on above: Performed By: #### L 500.4050, L100.0100, L501.1400, L501.6710, L501.92730, L501.5200, L506.0400, L501.2450, L101.9900, L501.9520 ####[facility] [address] [place], [address] Erythrocyte Sed Rateon 02-04 SED RATE 7 mm/hr Normal 0-30 [facility] Comment on above: Performed By: #### L 500.4050, L100.0100, L501.1400, L501.6710, L501.13983, L501.5200, L506.0400, L501.2450, L101.9900, L501.9520 ####[facility] [address] [place], [address] Free T3on 02-04-2025 Free T3 [Mass/Vol] 2.4 pg/mL Normal 2.18-3.98 [facility] [facility] Comment on above: Performed By: #### L 500.4050, L100.0100, L501.1400, L501.6710, L501.40898, L501.5200, L506.0400, L501.2450, L101.9900, L501.9520 ####[facility] [address] [place], [place], [id number] Lipaseon 02-04-2025 Lipase [Catalytic activity/Vol] 42 U/L Normal 13-75 [facility] Comment on above: Result Comment: Sherri martinez note:LIPASE revised reference range effective 22.New Lipase methodology. Expected to produce lower valuesthan the previous assay method.NEW Reference Range: 13 - 75 U/L Performed By: #### L 500.4050, L100.0100, L501.1400, L501.6710, L501.35627, L501.5200, L506.0400, L501.2450, L101.9900, L501.9520 ####[facility] [address] [place], [place], [id number] Magnesiumon 02-04-2025 Magnesium [Mass/Vol] 1.8 mg/dL Normal 1.5-2.2 [facility] Comment on above: Performed By: #### L 500.4050, L100.0100, L501.1400, L501.6710, L501.72471, L501.5200, L506.0400, L501.2450, L101.9900, L501.9520 ####[facility] [address] [place], [place], [id number] T4 Free Directon 02-04-2025 T4 FREE DIRECT 1.20 ng/dL Normal 0.76-1.46 [facility] Comment on above: Performed By: #### L 500.4050, L100.0100, L501.1400, L501.6710, L501.75404, L501.5200, L506.0400, L501.2450, L101.9900, L501.9520 ####[facility] [address] [place], [place], [address] Thyroid Stim Hormone (TSH)on 02-04-2025 TSH 0.755 uIU/mL Normal 0.300-4.200 [facility] Comment on above: Performed By: #### L 500.4050, L100.0100, L501.1400, L501.6710, L501.59475, L501.5200, L506.0400, L501.2450, L101.9900, L501.9520 ####[facility] [address] [place], [address] Uric Acidon 02-04-2025 URIC 6.8 mg/dL High 2.6-6.0 [facility] Comment on above: Result Comment: The drugs N-Acetylcysteine and Metamizole may falselydepress this assay. Performed By: #### L 500.4050, L100.0100, L501.1400, L501.6710, L501.93574, L501.5200, L506.0400, L501.2450, L101.9900, L501.9520 ####[facility] [address] [place], [address] MR/BMS.BPon 01-07-2025 MR/BMS.BP Normal [facility] Basic Metabolic Profile (BMP )on 01-03-2025 BUN/CRE 18.4 RATIO Normal 10-20 [facility] Comment on above: Performed By: #### L 500.2500, L506.1001 ####[facility] [address] [place], [address] Calcium [Mass/Vol] 8.7 mg/dL Normal 7.6-11.0 [facility] Comment on above: Performed By: #### L 500.2500, L506.1001 ####[facility] [address] [place], [address] Chloride [Moles/Vol] 100 mmol/L Normal 98-108 [facility] Comment on above: Performed By: #### L 500.2500, L506.1001 ####[facility] [address] [place], [address] CO2 [Moles/Vol] 25.8 mmol/L Normal 21.0-32.0 [facility] Comment on above: Performed By: #### L 500.2500, L506.1001 ####[facility] [address] [place], [address] Creatinine [Mass/Vol] 0.71 mg/dL Normal 0.70-1.20 [facility] Comment on above: Performed By: #### L 500.2500, L506.1001 ####[facility] [address] [place], [address] GAP 12 Normal 5-15 [facility] Comment on above: Performed By: #### L 500.2500, L506.1001 ####[facility] [address] [place], [address] GFR/1.73 sq M.predicted among non-blacks MDRD (S/P/Bld) [Vol rate/Area] 94 mL/min/{1.73_m2} Normal >60 [facility] Comment on above: Result Comment: mL/m in/1.73m2 CKD-EPI Creatinine Equation (2020) Performed By: #### L 500.2500, L506.1001 ####[facility] [address] [place], [address] Glucose [Mass/Vol] 293 mg/dL High 70-99 [facility] Comment on above: Performed By: #### L 500.2500, L506.1001 ####[facility] [address] [place], [address] Potassium [Moles/Vol] 4.8 mmol/L Normal 3.3-5.1 [facility] Comment on above: Performed By: #### L 500.2500, L506.1001 ####[facility] [address] [place], [address] Sodium [Moles/Vol] 138 mmol/L Normal 133-145 [facility] Comment on above: Performed By: #### L 500.2500, L506.1001 ####[facility] [address] [place], [address] Urea nitrogen [Mass/Vol] 13 mg/dL Normal 4-19 [facility] Comment on above: Performed By: #### L 500.2500, L506.1001 ####[facility] [address] [place], [address] Vitamin D,25 Hydroxyon 01-03 Vitamin D 25-OH 32.3 ng/mL Normal 30-100 [facility] Comment on above: Result Comment: Ashley min D StatusDeficiency: <20 ng/mL (50nmol/L)Insufficiency: 20-30 ng/mL (50-75 nmol/L)Sufficiency: 30-100 ng/mL (75-250 nmol/L)Toxicity: >100 ng/mL (>250 nmol/L) Performed By: #### L 500.2500, L506.1001 ####[facility] [address] [place], [address] Echo Complete W/ Contraston 11-29-2024 Echo Complete W/ Contrast Normal [facility] Brain/Head without Contrasto n 11-20-2024 Brain/Head without Contrast Normal [facility] Emergency Department Summary on 11-20-2024 Emergency Department Summary Normal [facility] Lumbar Spine 2 or 3 Viewson 11-20-2024 Lumbar Spine 2 or 3 Views Normal [facility] Spine Cervical without Contr ason 11-20-2024 Spine Cervical without Contras Normal [facility] Thoracic Spine 3 Viewson Thoracic Spine 3 Views Normal [facility] Endocrinology Visit Reporton 11-19-2024 Endocrinology Visit Report Normal [facility] Emergency Department Summary on 10-15-2024 Emergency Department Summary Normal [facility] Emergency Department Summary on 10-12-2024 Emergency Department Summary Normal [facility] Endocrinology Visit Reporton 10-08-2024 Endocrinology Visit Report Normal [facility] MR/BMS.BPon 09-03-2024 MR/BMS.BP Normal [facility] Bedside Glucoseon 07-28-2024 FINGERSTICK GLU 200 mg/dL High 74-106 [facility] Comment on above: Result Comment: MARCELLA GEMENT OF PATIENT CARE PER NURSING PROTOCOL Performed By: #### L 501.080 ####[facility] [address] [place], [address] FINGERSTICK GLU 202 mg/dL High 74-106 [facility] Comment on above: Result Comment: MARCELLA GEMENT OF PATIENT CARE PER NURSING PROTOCOL Performed By: #### L 501.080 ####[facility] [address] [place], [address] FINGERSTICK GLU 233 mg/dL High 74-106 [facility] Comment on above: Result Comment: MRACELLA GEMENT OF PATIENT CARE PER NURSING PROTOCOL Performed By: #### L 501.080 ####[facility] [address] [place], [address] Spine Lumbar without Contras ton 07-28-2024 Spine Lumbar without Contrast Normal [facility] 12 Lead EKGon 07-27-2024 12 Lead EKG Normal [facility] Basic Metabolic Profile (BMP )on 07-27-2024 BUN/CRE 14.0 RATIO Normal 10-20 [facility] Comment on above: Performed By: #### L 100.0100, L500.2500 ####[facility] [address] [place], [address] CA,Total 8.9 mg/dL Normal 8.5-10.1 [facility] Comment on above: Performed By: #### L 100.0100, L500.2500 ####[facility] [address] [place], [address] Chloride [Moles/Vol] 99 mmol/L Normal 98-107 [facility] Comment on above: Performed By: #### L 100.0100, L500.2500 ####[facility] [address] [place], [address] CO2 [Moles/Vol] 30.0 mmol/L Normal 21.0-32.0 [facility] Comment on above: Performed By: #### L 100.0100, L500.2500 ####[facility] [address] [place], [address] Creatinine [Mass/Vol] 1.00 mg/dL Normal 0.55-1.02 [facility] Comment on above: Result Comment: The validity of the calculated GFR GFRAA in patients over70 years has not been determined. Clinical correlation isessential. Performed By: #### L 100.0100, L500.2500 ####[facility] [address] [place], [address] ECRCL 69.70 ml/min Normal [facility] Comment on above: Performed By: #### L 100.0100, L500.2500 ####[facility] [address] [place], [address] EST GFR - AA 71 mL/min Normal >60 [facility] Comment on above: Result Comment: Afri can Kazakh GFR Calc Performed By: #### L 100.0100, L500.2500 ####[facility] [address] [place], [address] GAP 7 Normal 5-15 [facility] Comment on above: Performed By: #### L 100.0100, L500.2500 ####[facility] [address] [place], [address] GFR/1.73 sq M.predicted among non-blacks MDRD (S/P/Bld) [Vol rate/Area] 59 mL/min/{1.73_m2} Low >60 [facility] Comment on above: Result Comment: Non- GFR Calc Performed By: #### L 100.0100, L500.2500 ####[facility] [address] [place], [address] Glucose [Mass/Vol] 421 mg/dL High 74-106 [facility] Comment on above: Result Comment: Gluc ose result greater than or equal to 200 mg/dLsuggests DIABETES MELLITUS per A.D.A. criteria. Performed By: #### L 100.0100, L500.2500 ####[facility] [address] [place], [address] Potassium [Moles/Vol] 4.6 mmol/L Normal 3.5-5.1 [facility] Comment on above: Result Comment: Slig ht Hemolysis, Result may be falsely increased. Performed By: #### L 100.0100, L500.2500 ####[facility] [address] [place], [address] Sodium [Moles/Vol] 135 mmol/L Low 136-145 [facility] Comment on above: Performed By: #### L 100.0100, L500.2500 ####[facility] [address] [place], [address] Urea nitrogen [Mass/Vol] 14 mg/dL Normal 7-18 [facility] Comment on above: Performed By: #### L 100.0100, L500.2500 ####[facility] [address] [place], [address] Bedside Glucoseon 07-27-2024 FINGERSTICK GLU 290 mg/dL High 74-106 [facility] Comment on above: Result Comment: MARCELLA GEMENT OF PATIENT CARE PER NURSING PROTOCOL Performed By: #### L 501.080 ####[facility] [address] [place], [address] FINGERSTICK GLU 360 mg/dL High [address] [place] [address] Comment on above: Result Comment: MARCELLA GEMENT OF PATIENT CARE PER NURSING PROTOCOL Performed By: #### L 501.080 ####[facility] [address] [place], [address] CBC W/Diff, Automatedon 11-2 9-2024 Absolute Lymph 2.09 X10 3/uL Normal 0.83-4.51 [facility] Comment on above: Performed By: #### L 100.0100, L500.2500 ####[facility] [address] [place], [address] Absolute Neut 4.9 X10 3/uL Normal 2.0-7.7 [facility] Comment on above: Performed By: #### L 100.0100, L500.2500 ####[facility] [address] [place], [address] Basophils/100 WBC (Bld) 0.4 % Normal 0-1 [facility] Comment on above: Performed By: #### L 100.0100, L500.2500 ####[facility] [address] [place], [address] Eosinophils/100 WBC (Bld) 1.8 % Normal 0-5 [facility] Comment on above: Performed By: #### L 100.0100, L500.2500 ####[facility] [address] [place], [address] Erythrocyte distribution width (RBC) [Ratio] 13.5 % Normal 11.6-14.6 [facility] Comment on above: Performed By: #### L 100.0100, L500.2500 ####[facility] [address] [place], [address] Hematocrit (Bld) [Volume fraction] 44.6 % Normal 37-47 [facility] Comment on above: Performed By: #### L 100.0100, L500.2500 ####[facility] [address] [place], [address] Hemoglobin (Bld) [Mass/Vol] 14.2 g/dL Normal 12.0-15.0 [facility] Comment on above: Performed By: #### L 100.0100, L500.2500 ####[facility] [address] [place], [address] IG% 0.500 Normal 0.0-0.9 [facility] Comment on above: Result Comment: IG% - Immature Granulocytes (promyelocytes, myelocytes andmetamyelocytes) > 1% indicates that a LEFT SHIFT is Present. Performed By: #### L 100.0100, L500.2500 ####[facility] [address] [place], [address] Lymphocytes/100 WBC (Bld) 27.5 % Normal 19-41 [facility] Comment on above: Performed By: #### L 100.0100, L500.2500 ####[facility] [address] [place], [address] MCH (RBC) [Entitic mass] 28.9 pg Normal 27.0-32.0 [facility] Comment on above: Performed By: #### L 100.0100, L500.2500 ####[facility] [address] [place], [address] MCHC (RBC) [Mass/Vol] 31.8 g/dL Low 32-36 [facility] Comment on above: Performed By: #### L 100.0100, L500.2500 ####[facility] [address] [place], [address] MCV (RBC) [Entitic vol] 90.7 fL Normal 81-99 [facility] Comment on above: Performed By: #### L 100.0100, L500.2500 ####[facility] [address] [place], [address] Monocytes/100 WBC (Bld) 5.5 % Normal 0-10 [facility] Comment on above: Performed By: #### L 100.0100, L500.2500 ####[facility] [address] [place], [address] Neutrophils/100 WBC (Bld) 64.3 % Normal 47-70 [facility] Comment on above: Performed By: #### L 100.0100, L500.2500 ####[facility] [address] [place], [address] Nucleated RBC (Bld) [#/Vol] 0 10*3/uL Normal 0-5 [facility] Comment on above: Performed By: #### L 100.0100, L500.2500 ####[facility] [address] [place], [address] Platelet mean volume (Bld) [Entitic vol] 9.3 fL Normal 6.2-12.0 [facility] Comment on above: Performed By: #### L 100.0100, L500.2500 ####[facility] [address] [place], [address] Platelets (Bld) [#/Vol] 234 10*3/uL Normal 150-450 [facility] Comment on above: Performed By: #### L 100.0100, L500.2500 ####[facility] [address] [place], [address] RBC (Bld) [#/Vol] 4.92 10*6/uL Normal 4.2-5.4 [facility] Comment on above: Performed By: #### L 100.0100, L500.2500 ####[facility] [address] [place], [address] RDW SD 44.1 fl High 35.1-43.9 [facility] Comment on above: Performed By: #### L 100.0100, L500.2500 ####[facility] [address] [place], [address] WBC (Bld) [#/Vol] 7.6 10*3/uL Normal 4.4-11.0 [facility] Comment on above: Performed By: #### L 100.0100, L500.2500 ####[facility] [address] [place], [address] CTA Chest W/WO Contraston CTA Chest W/WO Contrast Normal [facility] Chest PA and Lateralon 07-27 Chest PA and Lateral Normal [facility] Emergency Department Summary on 07-27-2024 Emergency Department Summary Normal [facility] H AND P Exam - Hospitaliston 07-27-2024 H&P Exam - Hospitalist Normal [facility] L501.4020on 07-27-2024 TROPONIN-I HS 5 pg/mL Normal 3.0-54.0 [facility] Comment on above: Order Comment: 'TROP ' Serial specimen #1, #2 or #3: 1 Result Comment: Sherri martinez Note: New Test Units and Gender Specific Reference Ranges. For more information see Policy Stat Procedure [place] High Sensitivity Troponin (TNIH) and attachments. Performed By: #### L 501.4020 ####[facility] [address] [place], [address] Miscellaneous Lab Procedureo n 07-19-2024 MISC LAB TEST Normal [facility] Comment on above: Order Comment: [id number] [...] UR Oxymorphone Negative 300 TESTING PERFORMED AT [facility]. ORIGINAL REPORT ON FILE IN LAB CONTAINS ADDITIONAL TEST SITE INFORMATION. Performed By: #### L 400.2010, L801.1541, L505.5000 ####[facility] [address] [place], [address] Urinalysis, Routine (Dipstic k)on 07-13-2024 BILIRUBIN URINE Negative Normal Negative [facility] Comment on above: Order Comment: CLEAN CATCH Performed By: #### L 400.2010, L801.1541, L505.5000 ####[facility] [address] [place], [address] Clarity (U) Clear Normal Clear [facility] Comment on above: Order Comment: CLEAN CATCH Performed By: #### L 400.2010, L801.1541, L505.5000 ####[facility] [address] [place], [address] Color (U) Yellow Normal Yellow [facility] Comment on above: Order Comment: CLEAN CATCH Performed By: #### L 400.2010, L801.1541, L505.5000 ####[facility] [address] [place], [address] GLUCOSE, UR Normal Normal Normal [facility] Comment on above: Order Comment: CLEAN CATCH Performed By: #### L 400.2010, L801.1541, L505.5000 ####[facility] [address] [place], [address] KETONE UR Negative Normal Negative [facility] Comment on above: Order Comment: CLEAN CATCH Performed By: #### L 400.2010, L801.1541, L505.5000 ####[facility] [address] [place], [address] LEUK ESTERASE 25 /ul Abnormal Negative [facility] Comment on above: Order Comment: CLEAN CATCH Performed By: #### L 400.2010, L801.1541, L505.5000 ####[facility] [address] [place], [address] Nitrite Ql (U) Negative Normal Negative [facility] Comment on above: Order Comment: CLEAN CATCH Performed By: #### L 400.2010, L801.1541, L505.5000 ####[facility] [address] [place], [address] OCCULT BLOOD-UR Negative Normal Negative [facility] Comment on above: Order Comment: CLEAN CATCH Performed By: #### L 400.2010, L801.1541, L505.5000 ####[facility] [address] [place], [address] pH UR 6.0 Normal 5.0 - 8.0 [facility] Comment on above: Order Comment: CLEAN CATCH Performed By: #### L 400.2010, L801.1541, L505.5000 ####[facility] [address] [place], [address] PROT DIPSTX Negative Normal Negative [facility] Comment on above: Order Comment: CLEAN CATCH Performed By: #### L 400.2010, L801.1541, L505.5000 ####[facility] [address] [place], [address] SP.GR. DIPSTX 1.020 Normal 1.002-1.030 [facility] Comment on above: Order Comment: CLEAN CATCH Performed By: #### L 400.2010, L801.1541, L505.5000 ####[facility] [address] [place], [address] UROBILI Normal Normal Normal [facility] Comment on above: Order Comment: CLEAN CATCH Performed By: #### L 400.2010, L801.1541, L505.5000 ####[facility] [address] [place], [address] Urine Drug Screen (VISTA)on 07-13-2024 AMPHETAMINES Negative Normal <1000 ng/mL [facility] Comment on above: Order Comment: MEDTO X Performed By: #### L 400.2010, L801.1541, L505.5000 ####[facility] [address] [place], [address] BARBITIURATES Negative Normal < 200 ng/mL [facility] Comment on above: Order Comment: MEDTO X Performed By: #### L 400.2010, L801.1541, L505.5000 ####[facility] [address] [place], [address] BENZODIAZIPINE Negative Normal < 200 ng/mL [facility] Comment on above: Order Comment: MEDTO X Performed By: #### L 400.2010, L801.1541, L505.5000 ####[facility] [address] [place], [address] COCAINE Negative Normal < 300 ng/mL [facility] Comment on above: Order Comment: MEDTO X Performed By: #### L 400.2010, L801.1541, L505.5000 ####[facility] [address] [place], [address] ECSTACY Negative Normal < 500 ng/mL [facility] Comment on above: Order Comment: MEDTO X Performed By: #### L 400.2010, L801.1541, L505.5000 ####[facility] [address] [place], [address] METHADONE Negative Normal < 300 ng/mL [facility] Comment on above: Order Comment: MEDTO X Performed By: #### L 400.2010, L801.1541, L505.5000 ####[facility] [address] [place], [address] OPIATES Positive Abnormal < 300 ng/mL [facility] Comment on above: Order Comment: MEDTO X Performed By: #### L 400.2010, L801.1541, L505.5000 ####[facility] [address] [place], [address] PCP Negative Normal < 25 ng/mL [facility] Comment on above: Order Comment: MEDTO X Performed By: #### L 400.2010, L801.1541, L505.5000 ####[facility] [address] [place], [address] THC Negative Normal < 50 ng/mL [facility] Comment on above: Order Comment: MEDTO X Performed By: #### L 400.2010, L801.1541, L505.5000 ####[facility] [address] [place], [address] VISTA UDS PH 5 Normal [facility] Comment on above: Order Comment: MEDTO X Performed By: #### L 400.2010, L801.1541, L505.5000 ####[facility] [address] [place], [address] Endocrinology Visit Reporton 06-06-2024 Endocrinology Visit Report Normal [facility] CBC W/Diff, Automatedon - Absolute Lymph 1.84 X10 3/uL Normal 0.83-4.51 [facility] Comment on above: Performed By: #### L 503.6550, L501.9520, L506.1000, L503.0105, L503.6150, L100.0100, L506.0400, L500.4050 ####[facility] [address] [place], [address] Absolute Neut 4.0 X10 3/uL Normal 2.0-7.7 [facility] Comment on above: Performed By: #### L 503.6550, L501.9520, L506.1000, L503.0105, L503.6150, L100.0100, L506.0400, L500.4050 ####[facility] [address] [place], [address] Basophils/100 WBC (Bld) 0.6 % Normal 0-1 [facility] Comment on above: Performed By: #### L 503.6550, L501.9520, L506.1000, L503.0105, L503.6150, L100.0100, L506.0400, L500.4050 ####[facility] [address] [place], [address] Eosinophils/100 WBC (Bld) 2.7 % Normal 0-5 [facility] Comment on above: Performed By: #### L 503.6550, L501.9520, L506.1000, L503.0105, L503.6150, L100.0100, L506.0400, L500.4050 ####[facility] [address] [place], [address] Erythrocyte distribution width (RBC) [Ratio] 13.7 % Normal 11.6-14.6 [facility] Comment on above: Performed By: #### L 503.6550, L501.9520, L506.1000, L503.0105, L503.6150, L100.0100, L506.0400, L500.4050 ####[facility] [address] [place], [address] Hematocrit (Bld) [Volume fraction] 42.9 % Normal 37-47 [facility] Comment on above: Performed By: #### L 503.6550, L501.9520, L506.1000, L503.0105, L503.6150, L100.0100, L506.0400, L500.4050 ####[facility] [address] [place], [address] Hemoglobin (Bld) [Mass/Vol] 13.4 g/dL Normal 12.0-15.0 [facility] Comment on above: Performed By: #### L 503.6550, L501.9520, L506.1000, L503.0105, L503.6150, L100.0100, L506.0400, L500.4050 ####[facility] [address] [place], [address] IG% 0.500 Normal 0.0-0.9 [facility] Comment on above: Result Comment: IG% - Immature Granulocytes (promyelocytes, myelocytes andmetamyelocytes) > 1% indicates that a LEFT SHIFT is Present. Performed By: #### L 503.6550, L501.9520, L506.1000, L503.0105, L503.6150, L100.0100, L506.0400, L500.4050 ####[facility] [address] [place], [address] Lymphocytes/100 WBC (Bld) 27.8 % Normal 19-41 [facility] Comment on above: Performed By: #### L 503.6550, L501.9520, L506.1000, L503.0105, L503.6150, L100.0100, L506.0400, L500.4050 ####[facility] [address] [place], [address] MCH (RBC) [Entitic mass] 28.7 pg Normal 27.0-32.0 [facility] Comment on above: Performed By: #### L 503.6550, L501.9520, L506.1000, L503.0105, L503.6150, L100.0100, L506.0400, L500.4050 ####[facility] [address] [place], [address] MCHC (RBC) [Mass/Vol] 31.2 g/dL Low 32-36 [facility] Comment on above: Performed By: #### L 503.6550, L501.9520, L506.1000, L503.0105, L503.6150, L100.0100, L506.0400, L500.4050 ####[facility] [address] [place], [address] MCV (RBC) [Entitic vol] 91.9 fL Normal 81-99 [facility] Comment on above: Performed By: #### L 503.6550, L501.9520, L506.1000, L503.0105, L503.6150, L100.0100, L506.0400, L500.4050 ####[facility] [address] [place], [address] Monocytes/100 WBC (Bld) 7.7 % Normal 0-10 [facility] Comment on above: Performed By: #### L 503.6550, L501.9520, L506.1000, L503.0105, L503.6150, L100.0100, L506.0400, L500.4050 ####[facility] [address] [place], [address] Neutrophils/100 WBC (Bld) 60.7 % Normal 47-70 [facility] Comment on above: Performed By: #### L 503.6550, L501.9520, L506.1000, L503.0105, L503.6150, L100.0100, L506.0400, L500.4050 ####[facility] [address] [place], [address] Nucleated RBC (Bld) [#/Vol] 0 10*3/uL Normal 0-5 [facility] Comment on above: Performed By: #### L 503.6550, L501.9520, L506.1000, L503.0105, L503.6150, L100.0100, L506.0400, L500.4050 ####[facility] [address] [place], [address] Platelet mean volume (Bld) [Entitic vol] 9.6 fL Normal 6.2-12.0 [facility] Comment on above: Performed By: #### L 503.6550, L501.9520, L506.1000, L503.0105, L503.6150, L100.0100, L506.0400, L500.4050 ####[facility] [address] [place], [address] Platelets (Bld) [#/Vol] 228 10*3/uL Normal 150-450 [facility] Comment on above: Performed By: #### L 503.6550, L501.9520, L506.1000, L503.0105, L503.6150, L100.0100, L506.0400, L500.4050 ####[facility] [address] [place], [address] RBC (Bld) [#/Vol] 4.67 10*6/uL Normal 4.2-5.4 [facility] Comment on above: Performed By: #### L 503.6550, L501.9520, L506.1000, L503.0105, L503.6150, L100.0100, L506.0400, L500.4050 ####[facility] [address] [place], [address] RDW SD 46.1 fl High 35.1-43.9 [facility] Comment on above: Performed By: #### L 503.6550, L501.9520, L506.1000, L503.0105, L503.6150, L100.0100, L506.0400, L500.4050 ####[facility] [address] [place], [address] WBC (Bld) [#/Vol] 6.6 10*3/uL Normal 4.4-11.0 [facility] Comment on above: Performed By: #### L 503.6550, L501.9520, L506.1000, L503.0105, L503.6150, L100.0100, L506.0400, L500.4050 ####[facility] [address] [place], [place], [address] Comprehensive Metabolic Prof waon 06-01-2024 Albumin [Mass/Vol] 3.3 g/dL Normal 3.2-5.0 [facility] Comment on above: Performed By: #### L 503.6550, L501.9520, L506.1000, L503.0105, L503.6150, L100.0100, L506.0400, L500.4050 ####[facility] [address] [place], [place], [address] Albumin/Globulin [Mass ratio] 0.8 {ratio} Low 0.9-2.4 [facility] Comment on above: Performed By: #### L 503.6550, L501.9520, L506.1000, L503.0105, L503.6150, L100.0100, L506.0400, L500.4050 ####[facility] [address] [place], [address] ALK P 102 U/L Normal 45-117 [facility] Comment on above: Performed By: #### L 503.6550, L501.9520, L506.1000, L503.0105, L503.6150, L100.0100, L506.0400, L500.4050 ####[facility] [address] [place], [address] ALT [Catalytic activity/Vol] 66 U/L High 13-56 [facility] Comment on above: Performed By: #### L 503.6550, L501.9520, L506.1000, L503.0105, L503.6150, L100.0100, L506.0400, L500.4050 ####[facility] [address] [place], [address] AST [Catalytic activity/Vol] 63 U/L High 15-37 [facility] Comment on above: Performed By: #### L 503.6550, L501.9520, L506.1000, L503.0105, L503.6150, L100.0100, L506.0400, L500.4050 ####[facility] [address] [place], [address] Bilirubin [Mass/Vol] 0.30 mg/dL Normal 0.20-1.00 [facility] Comment on above: Result Comment: For patients on eltrombopag therapy, use of Dimension [place] TBIL is not recommended. Performed By: #### L 503.6550, L501.9520, L506.1000, L503.0105, L503.6150, L100.0100, L506.0400, L500.4050 ####[facility] [address] [place], [address] BUN/CRE 18.1 RATIO Normal 10-20 [facility] Comment on above: Performed By: #### L 503.6550, L501.9520, L506.1000, L503.0105, L503.6150, L100.0100, L506.0400, L500.4050 ####[facility] [address] [place], [address] CA,Total 9.4 mg/dL Normal 8.5-10.1 [facility] Comment on above: Performed By: #### L 503.6550, L501.9520, L506.1000, L503.0105, L503.6150, L100.0100, L506.0400, L500.4050 ####[facility] [address] [place], [address] Chloride [Moles/Vol] 102 mmol/L Normal 98-107 [facility] Comment on above: Performed By: #### L 503.6550, L501.9520, L506.1000, L503.0105, L503.6150, L100.0100, L506.0400, L500.4050 ####[facility] [address] [place], [address] CO2 [Moles/Vol] 29.0 mmol/L Normal 21.0-32.0 [facility] Comment on above: Performed By: #### L 503.6550, L501.9520, L506.1000, L503.0105, L503.6150, L100.0100, L506.0400, L500.4050 ####[facility] [address] [place], [address] Creatinine [Mass/Vol] 0.88 mg/dL Normal 0.55-1.02 [facility] Comment on above: Result Comment: The validity of the calculated GFR GFRAA in patients over70 years has not been determined. Clinical correlation isessential. Performed By: #### L 503.6550, L501.9520, L506.1000, L503.0105, L503.6150, L100.0100, L506.0400, L500.4050 ####[facility] [address] [place], [address] EST GFR - AA 82 mL/min Normal >60 [facility] Comment on above: Result Comment: Afri can [place] GFR Calc Performed By: #### L 503.6550, L501.9520, L506.1000, L503.0105, L503.6150, L100.0100, L506.0400, L500.4050 ####[facility] [address] [place], [address] GAP 7 Normal 5-15 [facility] Comment on above: Performed By: #### L 503.6550, L501.9520, L506.1000, L503.0105, L503.6150, L100.0100, L506.0400, L500.4050 ####[facility] [address] [place], [address] GFR/1.73 sq M.predicted among non-blacks MDRD (S/P/Bld) [Vol rate/Area] 68 mL/min/{1.73_m2} Normal >60 [facility] Comment on above: Result Comment: Non- GFR Calc Performed By: #### L 503.6550, L501.9520, L506.1000, L503.0105, L503.6150, L100.0100, L506.0400, L500.4050 ####[facility] [address] [place], [address] Globulin (S) [Mass/Vol] 4.0 g/dL Normal 2.2-4.2 [facility] Comment on above: Performed By: #### L 503.6550, L501.9520, L506.1000, L503.0105, L503.6150, L100.0100, L506.0400, L500.4050 ####[facility] [address] [place], [address] Glucose [Mass/Vol] 195 mg/dL High 74-106 [facility] Comment on above: Result Comment: Fast ing Glucose result greater than or equal to 126 mg/dLsuggests DIABETES MELLITUS per A.D.A. criteria. Performed By: #### L 503.6550, L501.9520, L506.1000, L503.0105, L503.6150, L100.0100, L506.0400, L500.4050 ####[facility] [address] [place], [address] Potassium [Moles/Vol] 3.8 mmol/L Normal 3.5-5.1 [facility] Comment on above: Performed By: #### L 503.6550, L501.9520, L506.1000, L503.0105, L503.6150, L100.0100, L506.0400, L500.4050 ####[facility] [address] [place], [address] Sodium [Moles/Vol] 138 mmol/L Normal 136-145 [facility] Comment on above: Performed By: #### L 503.6550, L501.9520, L506.1000, L503.0105, L503.6150, L100.0100, L506.0400, L500.4050 ####[facility] [address] [place], [address] T PROT 7.3 g/dL Normal 6.4-8.2 [facility] Comment on above: Performed By: #### L 503.6550, L501.9520, L506.1000, L503.0105, L503.6150, L100.0100, L506.0400, L500.4050 ####[facility] [address] [place], [address] Urea nitrogen [Mass/Vol] 16 mg/dL Normal 7-18 [facility] Comment on above: Performed By: #### L 503.6550, L501.9520, L506.1000, L503.0105, L503.6150, L100.0100, L506.0400, L500.4050 ####[facility] [address] [place], [address] Ferritinon 06-01-2024 Ferritin [Mass/Vol] 31 ng/mL Normal 8-252 [facility] Comment on above: Performed By: #### L 503.6550, L501.9520, L506.1000, L503.0105, L503.6150, L100.0100, L506.0400, L500.4050 ####[facility] [address] [place], [place], [phone] Ironon 06-01-2024 Iron [Mass/Vol] 78 ug/dL Normal 50-170 [facility] Comment on above: Performed By: #### L 503.6550, L501.9520, L506.1000, L503.0105, L503.6150, L100.0100, L506.0400, L500.4050 ####[facility] [address] [place], [place], [id number] T4 Free Directon 06-01-2024 T4 FREE DIRECT 1.07 ng/dL Normal 0.76-1.46 [facility] Comment on above: Performed By: #### L 503.6550, L501.9520, L506.1000, L503.0105, L503.6150, L100.0100, L506.0400, L500.4050 ####[facility] [address] [place], [place], [phone] Thyroid Stim Hormone (TSH)on 06-01-2024 TSH 2.790 uIU/mL Normal 0.358-3.740 [facility] Comment on above: Performed By: #### L 503.6550, L501.9520, L506.1000, L503.0105, L503.6150, L100.0100, L506.0400, L500.4050 ####[facility] [address] [place], [place], [address] Vitamin B12on 06-01-2024 Cobalamin (Vitamin B12) [Mass/Vol] 613 pg/mL Normal 211-911 [facility] Comment on above: Performed By: #### L 503.6550, L501.9520, L506.1000, L503.0105, L503.6150, L100.0100, L506.0400, L500.4050 ####[facility] [address] [place], [address] Vitamin D,25 Hydroxyon 06-01 Vitamin D 25-OH 38.7 ng/mL Normal [facility] Comment on above: Result Comment: Ashley min D 25([place]) Status Range Deficiency <20 ng/mL (50nmol/L) Insufficiency 20 - 30 ng/mL (50 - 75 nmol/L) Sufficiency 30 - 100 ng/mL (75 - 250 nmol/L) Toxicity >100 ng/mL (>250 nmol/L) Performed By: #### L 503.6550, L501.9520, L506.1000, L503.0105, L503.6150, L100.0100, L506.0400, L500.4050 ####[facility] [address] [place], [address] 36on 11-03-2023 36 Name of caller: Flex Contact phone number: [phone] Relationship to Patient: patient Provider: Dr. Landis [...] to return their call: No Normal [facility] COLONOSCOPYon 09-06-2023 Colonoscopy Table formatting fro m the original result was not included. Normal [facility] Colonoscopy studyon 09-06-19 Table formatting fro m [...] of bowel preparation was evaluated using the [place] Bowel Preparation Scale with scores of: right [...] PM Specimens No specimens collected Procedure Location [address] [place] [address] [address] Referring Provider Renita Mijares Do [address] [place] [address], [place] [address] Procedure Provider Renita Mijares DO [facility] Work Phone: [facility] Work Phone: Radiology Study observation (narrative) [facility] Work Phone: .Auto Diffon 02-24-2023 Basophil, Absolute 0.0 10 3/mcL Normal 0.0-0.2 [facility] ([place]) Comment on above: Performed By: #### C ROMEO BRYANT ANEU #### [address] [address] Basophils/100 WBC (Bld) 0.2 % Normal 0.0-2.5 [facility] ([place]) Comment on above: Performed By: #### C BC, ADIFF, ANEU #### [address] [address] Eosinophil, Absolute 0.4 10 3/mcL Normal 0.0-0.4 [facility] ([place]) Comment on above: Performed By: #### C BC, ADIFF, ANEU #### [address] [address] Eosinophils/100 WBC (Bld) 3.7 % Normal 0.0-7.0 [facility] ([place]) Comment on above: Performed By: #### C BC, ADIFF, ANEU #### [address] [address] Lymphocyte, Absolute 1.9 10 3/mcL Normal 0.8-3.9 [facility] ([place]) Comment on above: Performed By: #### C MANNY, ADIFF, ANEU #### [address] [address] Lymphocytes/100 WBC (Bld) 19.2 % Normal 10.0-50.0 [facility] ([place]) Comment on above: Performed By: #### C BC, ADIFF, ANEU #### [address] [address] Monocyte, Absolute 0.6 10 3/mcL Normal 0.2-1.0 [facility] ([place]) Comment on above: Performed By: #### C BC, ADIFF, ANEU #### [address] [address] Monocytes/100 WBC (Bld) 6.5 % Normal 1.7-13.0 [facility] ([place]) Comment on above: Performed By: #### C BC, ADIFF, ANEU #### [address] [address] Neutrophils/100 WBC (Bld) 70.4 % Normal 37.0-80.0 [facility] ([place]) Comment on above: Performed By: #### ROMEO FRANCIS, PATRICK #### [place] [address] .NEUABSon 02-24-2023 Neutrophil, Absolute 6.9 10 3/mcL High 2.9-6.2 [facility] ([place]) Comment on above: Performed By: #### ROMEO FRANCIS, ANEU #### [place] [address] CBCon 02-24-2023 Erythrocyte distribution width (RBC) [Ratio] 14.5 % Normal 11.5-14.5 [facility] ([place]) Comment on above: Performed By: #### ROMEO FRANCIS, PATRICK #### [place] [address] Hematocrit (Bld) [Volume fraction] 34.4 % Low 37.0-47.0 [facility] ([place]) Comment on above: Performed By: #### ROMEO FRANCIS, ANEU #### [place] [address] Hgb 11.4 G/dL Low 12.0-16.0 [facility] ([place]) Comment on above: Performed By: #### ROMEO FRANCIS, ANEU #### [place] [id number] MCH (RBC) [Entitic mass] 29.9 pg Normal 27.0-31.2 [facility] ([place]) Comment on above: Performed By: #### ROMEO FRANCIS, ANEU #### [place] [address] MCHC 33.3 G/dL Normal 33.0-37.0 [facility] ([place]) Comment on above: Performed By: #### ROMEO FRANCIS, ANEU #### [place] [id number] MCV (RBC) [Entitic vol] 89.7 fL Normal 80.0-94.0 [facility] ([place]) Comment on above: Performed By: #### ROMEO FRANCIS, ANEU #### [address], [place] [address] Platelet 180 10 3/mcL Normal 130-400 [facility] ([place]) Comment on above: Performed By: #### C ROMEO BRYANT, ANEU #### [address], [place] [address] Platelet mean volume (Bld) [Entitic vol] 7.2 fL Low 7.4-10.4 [facility] ([place]) Comment on above: Performed By: #### C ROMEO BRYANT, ANEU #### [address], [place] [address] RBC 3.83 10 6/mcL Low 4.20-5.40 [facility] ([place]) Comment on above: Performed By: #### C ROMEO BRYANT, ANEU #### [address], [place] [address] WBC 9.8 10 3/mcL Normal 4.6-10.8 [facility] ([place]) Comment on above: Performed By: #### C ROMEO BRYANT, ANEU #### [facility] [address], [place] [address] LABORATORYOrdered By: Soha Jiang on 02-24-2023 Blood Glucose Testing Reason Routine (02/24/23 11:46 AM) [facility] Glucose [Mass/Vol] 209 mg/dL Invalid Interpretation Code 82 - 115 mg/dL [facility] Blood Glucose Testing Reason Routine (02/24/23 7:05 AM) [facility] Glucose [Mass/Vol] 139 mg/dL Invalid Interpretation Code 82 - 115 mg/dL [facility] LABORATORYOrdered By: SYSTEM SYSTEM on 02-24-2023 [...] Normal 0.0-0.2 [facility] ([place]) Comment on above: Performed By: #### B MP, GFR, CBC, ADIFF, ANEU #### [address] [address] Basophils/100 WBC (Bld) 0.1 % Normal 0.0-2.5 [facility] ([place]) Comment on above: Performed By: #### B MP, GFR, CBC, ADIFF, ANEU #### [address] [address] Eosinophil, Absolute 0.0 10 3/mcL Normal 0.0-0.4 [facility] ([place]) Comment on above: Performed By: #### B MP, GFR, CBC, ADIFF, ANEU #### [address] [address] Eosinophils/100 WBC (Bld) 0.1 % Normal 0.0-7.0 [facility] ([place]) Comment on above: Performed By: #### B MP, GFR, CBC, ADIFF, ANEU #### [address] [address] Lymphocyte, Absolute 1.4 10 3/mcL Normal 0.8-3.9 [facility] ([place]) Comment on above: Performed By: #### B MP, GFR, CBC, ADIFF, ANEU #### [address] [address] Lymphocytes/100 WBC (Bld) 12.5 % Normal 10.0-50.0 [facility] ([place]) Comment on above: Performed By: #### B MP, GFR, CBC, ADIFF, ANEU #### [address] [address] Monocyte, Absolute 0.5 10 3/mcL Normal 0.2-1.0 [facility] ([place]) Comment on above: Performed By: #### B MP, GFR, CBC, ADIFF, ANEU #### [address] [address] Monocytes/100 WBC (Bld) 5.0 % Normal 1.7-13.0 [facility] ([place]) Comment on above: Performed By: #### B MP, GFR, CBC, ADIFF, ANEU #### [address] [address] Neutrophils/100 WBC (Bld) 82.3 % High 37.0-80.0 [facility] ([place]) Comment on above: Performed By: #### B MP, GFR, CBC, ADIFF, ANEU #### [address] [address] .GFRon 02-23-2023 GFR 61 ml/min/1.73sqm Normal [facility] ([place]) Comment on above: Result Comment: GFR [...] B MP, GFR, CBC, ADIFF, ANEU #### [address] [address] GFR Non- 51 ml/min/1.73sqm Normal [facility] ([place]) Comment on above: Result Comment: GFR Population [...] B MP, GFR, CBC, ADIFF, ANEU #### [address] [address] .NEUABSon 02-23-2023 Neutrophil, Absolute 9.0 10 3/mcL High 2.9-6.2 [facility] ([place]) Comment on above: Performed By: #### B MP, GFR, CBC, ADIFF, ANEU #### [address] [address] BMPon 02-23-2023 BUN/Creatinine Ratio 16 ratio Normal 7-27 [facility] ([place]) Comment on above: Performed By: #### B MP, GFR, CBC, ADIFF, ANEU #### [address] [address] Calcium [Mass/Vol] 8.7 mg/dL Normal 8.4-10.2 [facility] ([place]) Comment on above: Performed By: #### B MP, GFR, CBC, ADIFF, ANEU #### [address] [address] Chloride [Moles/Vol] 103 mmol/L Normal 98-107 [facility] ([place]) Comment on above: Performed By: #### B MP, GFR, CBC, ADIFF, ANEU #### [address] [address] CO2 [Moles/Vol] 30 mmol/L Normal 23-31 [facility] ([place]) Comment on above: Performed By: #### B MP, GFR, CBC, ADIFF, ANEU #### [address] [address] Creatinine [Mass/Vol] 1.09 mg/dL High 0.55-1.02 [facility] ([place]) Comment on above: Performed By: #### B MP, GFR, CBC, ADIFF, ANEU #### [address] [address] Electrolyte Balance 8.0 mEq/L Normal 4.0-15.0 [facility] ([place]) Comment on above: Performed By: #### B MP, GFR, CBC, ADIFF, ANEU #### [address] [address] Glucose [Mass/Vol] 239 mg/dL High 80-115 [facility] ([place]) Comment on above: Performed By: #### B MP, GFR, CBC, ADIFF, ANEU #### [address] [address] Potassium [Moles/Vol] 4.8 mmol/L Normal 3.5-5.1 [facility] ([place]) Comment on above: Performed By: #### B MP, GFR, CBC, ADIFF, ANEU #### [address] [address] Sodium [Moles/Vol] 141 mmol/L Normal 136-145 [facility] ([place]) Comment on above: Performed By: #### B MP, GFR, CBC, ADIFF, ANEU #### [address] [address] Urea nitrogen [Mass/Vol] 17 mg/dL Normal 7-18 [facility] ([place]) Comment on above: Performed By: #### B MP, GFR, CBC, ADIFF, ANEU #### [address] [address] CBCon 02-23-2023 Erythrocyte distribution width (RBC) [Ratio] 14.4 % Normal 11.5-14.5 [facility] ([place]) Comment on above: Performed By: #### B MP, GFR, CBC, ADIFF, ANEU #### [address] [address] Hematocrit (Bld) [Volume fraction] 34.9 % Low 37.0-47.0 [facility] ([place]) Comment on above: Performed By: #### B MP, GFR, CBC, ADIFF, ANEU #### [address] [address] Hgb 11.6 G/dL Low 12.0-16.0 [facility] ([place]) Comment on above: Performed By: #### B MP, GFR, CBC, ADIFF, ANEU #### [address] [address] MCH (RBC) [Entitic mass] 29.6 pg Normal 27.0-31.2 [facility] ([place]) Comment on above: Performed By: #### B MP, GFR, CBC, ADIFF, ANEU #### [address] [address] MCHC 33.1 G/dL Normal 33.0-37.0 [facility] ([place]) Comment on above: Performed By: #### B MP, GFR, CBC, ADIFF, ANEU #### [address] [address] MCV (RBC) [Entitic vol] 89.4 fL Normal 80.0-94.0 [facility] ([place]) Comment on above: Performed By: #### B MP, GFR, CBC, ADIFF, ANEU #### [address] [address] Platelet 231 10 3/mcL Normal 130-400 [facility] ([place]) Comment on above: Performed By: #### B MP, GFR, CBC, ADIFF, ANEU #### [address] [address] Platelet mean volume (Bld) [Entitic vol] 7.4 fL Normal 7.4-10.4 [facility] ([place]) Comment on above: Performed By: #### B MP, GFR, CBC, ADIFF, ANEU #### [address] [address] RBC 3.90 10 6/mcL Low 4.20-5.40 [facility] ([place]) Comment on above: Performed By: #### B MP, GFR, CBC, ADIFF, ANEU #### [address] [address] WBC 10.9 10 3/mcL High 4.6-10.8 [facility] ([place]) Comment on above: Performed By: #### B MP, GFR, CBC, ADIFF, ANEU #### [facility] [address], [place] [address] LABORATORYOrdered By: Jacob Farmer on 02-23-2023 Glucose [Mass/Vol] 171 mg/dL Invalid Interpretation Code 82 - 115 mg/dL [facility] LABORATORYOrdered By: Eduardo Ghotra on 02-23-2023 Blood Glucose Testing Reason Routine (02/23/23 9:26 PM) [facility] LABORATORYOrdered By: Freddy Salomon on 02-23-2023 Stated Blood Glucose [facility] LABORATORYOrdered By: Robert Wright on 02-23-2023 Basophil, [...] 02-22-2023 ABO/Rh Interp Negative Invalid Interpretation Code [facility] ([place]) Comment on above: Performed By: #### CASEY SPANGLER #### [facility] [address], [place] [address] Gel ABSon 02-22-2023 Antibody Screen Gel Negative Normal [facility] ([place]) Comment on above: Performed By: #### CASEY SPANGLER #### [facility] [address], [place] [address] LABORATORYOrdered By: Kiran Harding on 02-22-2023 Stated Blood Glucose [facility] LABORATORYOrdered By: Aline weiss on 02-22-2023 Stated Blood Glucose 301 [facility] Time of Stated Blood Glucose [id number] [facility] LABORATORYOrdered By: Ann Marie Joiner on [...] 02/22/2023 1:07:27 PM Ordering Provider: PJ MAHONEY [facility] ([place]) CT KNEE W/O CONTRAST RIGHTon 02-04-2023 CT [...] 02/04/2023 9:09:05 AM Ordering Provider: PJ MAHONEY [facility] ([place]) .Auto Diffon 02-03-2023 Basophil, Absolute 0.0 10 3/mcL Normal 0.0-0.2 [facility] ([place]) Comment on above: Performed By: #### C ROMEO BRYANT, ANEU #### [address] [address] Basophils/100 WBC (Bld) 0.5 % Normal 0.0-2.5 [facility] ([place]) Comment on above: Performed By: #### C BC, ADIFF, ANEU #### [address] [address] Eosinophil, Absolute 0.1 10 3/mcL Normal 0.0-0.4 [facility] ([place]) Comment on above: Performed By: #### C BC, ADIFF, ANEU #### [address] [address] Eosinophils/100 WBC (Bld) 2.0 % Normal 0.0-7.0 [facility] ([place]) Comment on above: Performed By: #### C MANNY, ADIFF, ANEU #### [address] [address] Lymphocyte, Absolute 2.2 10 3/mcL Normal 0.8-3.9 [facility] ([place]) Comment on above: Performed By: #### C BC, ADIFF, ANEU #### [address] [address] Lymphocytes/100 WBC (Bld) 29.2 % Normal 10.0-50.0 [facility] ([place]) Comment on above: Performed By: #### C BC, ADIFF, ANEU #### [address] [address] Monocyte, Absolute 0.5 10 3/mcL Normal 0.2-1.0 [facility] ([place]) Comment on above: Performed By: #### C BC, ADIFF, ANEU #### [address] [address] Monocytes/100 WBC (Bld) 6.3 % Normal 1.7-13.0 [facility] ([place]) Comment on above: Performed By: #### C BC, ADIFF, ANEU #### [address] [address] Neutrophils/100 WBC (Bld) 62.0 % Normal 37.0-80.0 [facility] ([place]) Comment on above: Performed By: #### C ROMEO BRYANT, ANEU #### [place] [address] [address] .GFRon 02-03-2023 GFR 74 ml/min/1.73sqm Normal [facility] ([place]) Comment on above: Result Comment: GFR Population [...] #### C ROMEO BRYANT, ANEU #### [place] [address] [address] GFR Non- 61 ml/min/1.73sqm Normal [facility] ([place]) Comment on above: Result Comment: GFR Population [...] #### C ROMEO BRYANT, ANEU #### [place] [address] [address] .NEUABSon 02-03-2023 Neutrophil, Absolute 4.7 10 3/mcL Normal 2.9-6.2 [facility] ([place]) Comment on above: Performed By: #### C ROMEO BRYANT, ANEU #### [address] [address] A1Con 02-03-2023 HbA1c (Bld) [Mass fraction] 6.7 % High 4.3-6.4 [facility] ([place]) Comment on above: Performed By: #### ROMEO FRANCIS, ANEU #### [address] [address] ALBon 02-03-2023 Albumin Level 3.6 G/dL Normal 3.4-4.8 [facility] ([place]) Comment on above: Performed By: #### ROMEO FRANCIS, ANEU #### [address] [address] BMPon 02-03-2023 BUN/Creatinine Ratio 23 ratio Normal 7-27 [facility] ([place]) Comment on above: Performed By: #### ROMEO FRANCIS, ANEU #### [address] [address] Calcium [Mass/Vol] 8.9 mg/dL Normal 8.4-10.2 [facility] ([place]) Comment on above: Performed By: #### ROMEO FRANICS, ANEU #### [address] [address] Chloride [Moles/Vol] 100 mmol/L Normal 98-107 [facility] ([place]) Comment on above: Performed By: #### C ROMEO BRYANT, ANEU #### [address] [address] CO2 [Moles/Vol] 30 mmol/L Normal 23-31 [facility] ([place]) Comment on above: Performed By: #### ROMEO FRANCIS, ANEU #### [address] [address] Creatinine [Mass/Vol] 0.93 mg/dL Normal 0.55-1.02 [facility] ([place]) Comment on above: Performed By: #### C ROMEO BRYANT, ANEU #### [address] [address] Electrolyte Balance 9.0 mEq/L Normal 4.0-15.0 [facility] ([place]) Comment on above: Performed By: #### C ROMEO BRYANT, ANEU #### [place] [address] [address] Glucose [Mass/Vol] 258 mg/dL High 80-115 [facility] ([place]) Comment on above: Performed By: #### C ROMEO BRYANT, ANEU #### [address] [address] Potassium [Moles/Vol] 4.7 mmol/L Normal 3.5-5.1 [facility] ([place]) Comment on above: Performed By: #### C ROMEO BRYANT, ANEU #### [address] [address] Sodium [Moles/Vol] 139 mmol/L Normal 136-145 [facility] ([place]) Comment on above: Performed By: #### C ROMEO BRYANT, ANEU #### [address] [address] Urea nitrogen [Mass/Vol] 21 mg/dL High 7-18 [facility] ([place]) Comment on above: Performed By: #### C ROMEO BRYANT, ANEU #### [address] [address] CBCon 02-03-2023 Erythrocyte distribution width (RBC) [Ratio] 15.2 % High 11.5-14.5 [facility] ([place]) Comment on above: Order Comment: Pre-A dmission Testing Performed By: #### C ROMEO BRYANT, ANEU #### [address] [address] Hematocrit (Bld) [Volume fraction] 36.6 % Low 37.0-47.0 [facility] ([place]) Comment on above: Order Comment: Pre-A dmission Testing Performed By: #### Adriano BCROMEO, ANEU #### [address] [address] Hgb 12.0 G/dL Normal 12.0-16.0 [facility] ([place]) Comment on above: Order Comment: Pre-A dmission Testing Performed By: #### C BC, ADIFF, ANEU #### [address] [address] MCH (RBC) [Entitic mass] 29.5 pg Normal 27.0-31.2 [facility] ([place]) Comment on above: Order Comment: Pre-A dmission Testing Performed By: #### C BCROMEO, ANEU #### [address] [address] MCHC 32.8 G/dL Low 33.0-37.0 [facility] ([place]) Comment on above: Order Comment: Pre-A dmission Testing Performed By: #### C BCROMEO, ANEU #### [address] [address] MCV (RBC) [Entitic vol] 90.0 fL Normal 80.0-94.0 [facility] ([place]) Comment on above: Order Comment: Pre-A dmission Testing Performed By: #### C ROMEO BRYANT, ANEU #### [address] [address] Platelet 234 10 3/mcL Normal 130-400 [facility] ([place]) Comment on above: Order Comment: Pre-A dmission Testing Performed By: #### C BCROMEO, ANEU #### [address] [address] Platelet mean volume (Bld) [Entitic vol] 7.0 fL Low 7.4-10.4 [facility] ([place]) Comment on above: Order Comment: Pre-A dmission Testing Performed By: #### C BCROMEO, ANEU #### [address] [address] RBC 4.07 10 6/mcL Low 4.20-5.40 [facility] ([place]) Comment on above: Order Comment: Pre-A dmission Testing Performed By: #### C BCBELINDAIFF, ANEU #### [place] [address], [place] [address] WBC 7.5 10 3/mcL Normal 4.6-10.8 [facility] ([place]) Comment on above: Order Comment: Pre-A dmission Testing Performed By: #### C BCBELINDAIFF, ANEU #### [place] [address], [place] [address] Gel ABOon 02-03-2023 ABO/Rh Interp Negative Invalid Interpretation Code [facility] ([place]) Comment on above: Order Comment: SURG EDMOND 6/27 -AC Performed By: #### C ROMEO BRYANT, ANEU #### [place] [id number], [place] [address] Gel ABSon 02-03-2023 Antibody Screen Gel Negative Normal [facility] ([place]) Comment on above: Order Comment: SURG EDMOND 6/27 -AC Performed By: #### C ROMEO BRYANT, ANEU #### [place] [address] [address] LABORATORYOrdered By: Ann Marie Joiner on 02-03-2023 [...] peptide B (Bld) [Mass/Vol] 14.9 pg/mL 0-100 [facility] Basophil percentageOrdered B y: Dr. Mckeon on 09-17-2022 Chloride [Moles/Vol] 97 mmol/L 98-107 [facility] Glucose [Mass/Vol] 146 mg/dL 74-106 [facility] Comment on above: Fasting Glucose resu lt greater than or equal to 126 mg/dL suggests DIABETES MELLITUS per A.D.A. criteria. Potassium [Moles/Vol] 3.6 mmol/L 3.5-5.1 [facility] Sodium [Moles/Vol] 139 mmol/L 136-145 [facility] Glucose Glucometer (BldC) [M ass/Vol]Ordered By: Dr. Anderson on 09-17-2022 Glucose [Mass/Vol] 129 mg/dL 74-106 [facility] Comment on above: MANAGEMENT OF PATIEN T CARE PER NURSING PROTOCOL Influenza virus A and B and SARS-CoV-2 (COVID-19) Ag panel - Upper respiratory specimOrdered By: Dr. Anderson on 09-17-2022 SARS-CoV-2 (COVID-19) RNA ROJELIO+probe Ql (Resp) [facility] Laboratory - Chemistry and C hemistry - challengeOrdered By: Dr. Mckeon on 09-17-2022 CO2 [Moles/Vol] 32.0 mmol/L 21.0-32.0 [facility] Urea nitrogen/Creatinine [Mass ratio] 18.4 mg/mg 10- [facility] No Panel InformationOrdered By: Dr. Mckeon on 09-17-2022 Estimated Creatinine Clearance Calc 56.41 ml/min [facility] Estimated GFR (MDRD) Amer 84 mL/min >60 [facility] Comment on above: GFR Calc Estimated GFR (MDRD) Non-Af Amer 70 mL/min >60 [facility] Comment on above: Non- GFR Calc Serum or plasma calcium dread urement (mass/volume)Ordered By: Dr. Mckeon on 09-17-2022 Calcium [Mass/Vol] 8.8 mg/dL 8.5-10.1 [facility] Serum or plasma creatinine m easurement (mass/volume)Ordered By: Dr. Mckeon on 09-17-2022 Creatinine [Mass/Vol] 0.87 mg/dL 0.55-1.02 [facility] Comment on above: The validity of the calculated GFR & GFRAA in patients over 70 years has not been determined. Clinical correlation is essential. Serum or plasma urea nitroge n measurement (mass/volume)Ordered By: Dr. Mckeon on 09-17-2022 Urea nitrogen [Mass/Vol] 16 mg/dL 7-18 [facility] Thin prep Papanicolaou smear with manual screeningOrdered By: Dr. Mckeon on 09-17-2022 Thin prep Papanicolaou smear with manual screening 10 5-15 [facility] Absolute lymphocyte countOrd ered By: Dr. Dee on 09-16-2022 Lymphocytes Auto (Unsp spec) [#/Vol] 1.58 10*3/uL 0.83-4.51 [facility] Assessment of wrist artery p atency prior to arterial punctureOrdered By: Dr. Dee on 09-16-2022 Arterial patency Wrist artery --pre arterial puncture Positive [facility] Base excessOrdered By: Dr. Krystin dean on 09-16-2022 Base excess Calc (BldV) [Moles/Vol] 7 mmol/L -2-2 [facility] Basophil percentageOrdered B y: Dr. Dee on 09-16-2022 Basophil percentage 31.9 mmol/L 22-26 [facility] Basophils/100 WBC (Bld) 95 % 95-99 [facility] Basophil percentage 0 SEEN /hpf 0-5 [facility] Basophils/100 WBC (Bld) 0.4 % 0-1 [facility] Eosinophils/100 WBC (Bld) 3.3 % 0-5 [facility] Neutrophils (Bld) [#/Vol] 5.8 10*3/uL 2.0-7.7 [facility] Neutrophils/100 WBC (Bld) 69.5 % 47-70 [facility] WBC (Bld) [#/Vol] 8.4 10*3/uL 4.4-11.0 [facility] Bilirubin Test strip Ql (U)O rdered By: Dr. Dee on 09-16-2022 Bilirubin Ql (U) Negative Negative [facility] Blood erythrocytes count (nu mber/volume)Ordered By: Dr. Dee on 09-16-2022 RBC (Bld) [#/Vol] 4.41 10*6/uL 4.2-5.4 [facility] Blood hemoglobin measurement (mass/volume)Ordered By: Dr. Dee on 09-16-2022 Hemoglobin (Bld) [Mass/Vol] 12.2 g/dL 12.0-15.0 [facility] Blood lymphocytes/100 leukoc ytesOrdered By: Dr. Dee on 09-16-2022 Lymphocytes/100 WBC (Bld) 18.8 % 19-41 [facility] Blood monocytes/100 leukocyt esOrdered By: Dr. Dee on 09-16-2022 Monocytes/100 WBC (Bld) 7.5 % 0-10 [facility] Blood platelet mean volumeOr dered By: Dr. Dee on 09-16-2022 Platelet mean volume (Bld) [Entitic vol] 10.1 fL 6.2-12.0 [facility] CO2 (BldA) [Partial pressure ]Ordered By: Dr. Dee on 09-16-2022 CO2 (Bld) [Partial pressure] 53.2 mm[Hg] 35-45 [facility] Determination of erythrocyte mean corpuscular volume (MCV)Ordered By: Dr. Dee on 09-16-2022 MCV (RBC) [Entitic vol] 90.0 fL 81-99 [facility] Hematocrit Auto (Bld) [Volum e fraction]Ordered By: Dr. Dee on 09-16-2022 Hematocrit (Bld) [Volume fraction] 39.7 % 37-47 [facility] Ketones Test strip Ql (U)Ord ered By: Dr. Dee on 09-16-2022 Ketones Ql (U) Negative Negative [facility] Laboratory - Chemistry and C hemistry - challengeOrdered By: Dr. Dee on 09-16-2022 Natriuretic peptide B (Bld) [Mass/Vol] 76.4 pg/mL 0-100 [facility] Laboratory - Hematology and Cell countsOrdered By: Dr. Dee on 09-16-2022 Erythrocyte distribution width (RBC) [Entitic vol] 45.8 fL 35.1-43.9 [facility] Erythrocyte distribution width (RBC) [Ratio] 14.1 % 11.6-14.6 [facility] Immature granulocytes/100 WBC (Bld) 0.500 % 0.0-0.9 [facility] Comment on above: IG% - Immature Granu locytes (promyelocytes, myelocytes and metamyelocytes) > 1% indicates that a LEFT SHIFT is Present. MCH (RBC) [Entitic mass] 27.7 pg 27.0-32.0 [facility] Nucleated RBC/100 WBC (Bld) [Ratio] 0 % 0-5 [facility] MCHC Auto (RBC) [Mass/Vol]Or dered By: Dr. Dee on 09-16-2022 MCHC (RBC) [Mass/Vol] 30.7 g/dL 32-36 [facility] Mucus LM Ql (Urine sed)Order ed By: Dr. Dee on 09-16-2022 Mucus Ql (Urine sed) 0 SEEN /hpf [facility] Nitrite Test strip Ql (U)Ord ered By: Dr. Dee on 09-16-2022 Nitrite Ql (U) Negative Negative [facility] No Panel InformationOrdered By: Dr. Dee on 09-16-2022 Blood Gas Liter Flow 2.0 /min [facility] Blood Gas Sample Site L Radial [facility] Blood Gas Specimen Type ART [facility] Blood Gas Total CO2 34 mmol/L [facility] Oxygen Delivery Device Cannula [facility] Troponin I High Sensitivity 6 pg/mL 3.0-54.0 [facility] Comment on above: Please Note: New Selene t Units and Gender Specific Reference Ranges. For more information see Policy Stat Procedure [place] High Sensitivity Troponin (TNIH) and attachments. Oxygen (BldA) [Partial press ure]Ordered By: Dr. Dee on 09-16-2022 Oxygen (Bld) [Partial pressure] 79 mmHG 75-100 [facility] Platelets bldOrdered By: Dr. Dee on 09-16-2022 Platelets (Bld) [#/Vol] 254 10*3/uL 150-450 [facility] Protein Test strip Ql (U)Ord ered By: Dr. Dee on 09-16-2022 Protein Ql (U) Negative Negative [facility] Squamous epithelial cells de tection in urine sediment by light microscopyOrdered By: Dr. Dee on 09-16-2022 Epithelial cells.squamous LM Ql (Urine sed) 0-5 SEEN /hpf 5-10 [facility] Urine blood detectionOrdered By: Dr. Dee on 09-16-2022 RBC Ql (U) Negative Negative [facility] RBC Ql (U) 0 SEEN /hpf 0-5 [facility] Urine clarityOrdered By: Dr. Dee on 09-16-2022 Clarity (U) Clear Clear [facility] Urine color determinationOrd ered By: Dr. Dee on 09-16-2022 Color (U) Yellow Yellow [facility] Urine glucose detectionOrder ed By: Dr. Dee on 09-16-2022 Glucose Ql (U) Normal mg/dl Normal [facility] Urine leukocyte esterase det ection by dipstickOrdered By: Dr. Dee on 09-16-2022 Leukocyte esterase Test strip Ql (U) Negative Negative [facility] Urine pHOrdered By: Dr. Lloyd joshi on 09-16-2022 pH (U) 7.0 [pH] 5.0 - 8.0 [facility] Urine sediment bacteria coun t by microscopy (number/high power field)Ordered By: Dr. Dee on 09-16-2022 Bacteria LM.HPF (Urine sed) [#/Area] 0 /[HPF] None Seen [facility] Urine specific gravity measu rementOrdered By: Dr. Dee on 09-16-2022 Specific gravity (U) [Rel density] 1.005 1.002-1.030 [facility] Urobilinogen Auto test strip Ql (U)Ordered By: Dr. Dee on 09-16-2022 Urobilinogen Ql (U) Normal mg/dl Normal [facility] pH measurementOrdered By: Dr Nikhil Dee on 09-16-2022 pH (Unsp spec) 7.39 [pH] 7.35-7.45 [facility] No Panel InformationOrdered By: Dr. Shaw on 09-15-2022 D-Dimer Quantitative (PE/DVT) 0.65 FEU/ug/m 0.27-0.49 [facility] Comment on above: D-Dimer ELEVATED (>0 .49): Additional studies and clinicalassessments are indicated to conclude diagnosis of:Deep Vein Thrombosis (DVT) or Pulmonary Embolism (PE)CRITICAL VALUE VERIFIED. CALLED TO SHELDON CHILEL09/15/22 [facility] Jocy Leal.RESULTS READ BACK BY SAME. Laboratory - Hematology and Cell countson 09-13-2022 HbA1c (Bld) [Mass fraction] 7.1 % [facility] Laboratory - Drug toxicology Ordered By: Dr. Trejo on 07-07-2022 Amphetamines Ql (U) Negative <1000 ng/mL [facility] Benzodiazepines Ql (U) Negative < 200 ng/mL [facility] Cannabinoids Screen Ql (U) Negative < 50 ng/mL [facility] Cocaine Ql (U) Negative < 300 ng/mL [facility] Opiates Ql (U) Positive < 300 ng/mL [facility] No Panel InformationOrdered By: Dr. Trejo on 07-07-2022 MDMA (Ecstasy) Screen Negative < 500 ng/mL [facility] Miscellaneous Test See comment [facility] Comment on above: [id number] 6+OXYCODONE-B UND (ng/mL) DRUG RESULT SCREEN CUTOFF____ [...] 300 Oxymorphone Negative 300 TESTING PERFORMED AT [facility]. ORIGINAL REPORT ON FILE IN LAB CONTAINS ADDITIONAL TEST SITE INFORMATION. Urine Barbiturates Screen Negative < 200 ng/mL [facility] Urine Drug Screen Comment [facility] Comment on above: CONFIRMATORY TESTING FOR [...] TESTING MUST BE ORDERED SEPARATELY. USE TESTMNEMONIC: [facility] Urine Methadone Screen Negative < 300 ng/mL [facility] Urine phencyclidine (PCP) de tectionOrdered By: Dr. Trejo on 07-07-2022 Phencyclidine Ql (U) Negative < 25 ng/mL [facility] CNPNon 06-23-2022 CNPN Telephone ([facility]) FLEX WOOTEN ([id number]) 1960 F Date Time Provider Department 06/23/22 NICOLÁS AGGARWAL During your visit today, we recorded the following information about you: Mendy Adams RN 06/23/2022 8:51 AM Signed I left a message for Cary at [employer] regarding their addendum request. 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 Melendez PAST SURGICAL HISTORY OF 2000 SI joint fusion -- Kody George PAST SURGICAL HISTORY OF 2009 left knee -- meniscus repair; Dr. Weller, [facility] SIGMOIDOSCOPY FLX DX W/COLLJ SPEC BR/WA [...] Worsening Previous (more content not included)... Normal [facility] Laboratory - Hematology and Cell countson 05-19-2022 HbA1c (Bld) [Mass fraction] 7.5 % [facility] Work Phone: XR FOOT 3V AP/LAT/OBL [...] noted. IMPRESSION: Remote postoperative and degenerative changes. Line Construction Supervisor: JUANITA Transcribe Date/Time: May 19 2022 10:24A Dictated by : ARACELY COATES MD This examination was interpreted and the report reviewed and electronically signed by: ARACELY COATES MD on May 19 2022 10:25AM EST [id number] Normal [facility] XR FOOT GENERAL 3V AP/LAT/OB L LEFTon 05-19-2022 [facility] Absolute lymphocyte counton 01-31-2022 Lymphocytes Auto (Unsp spec) [#/Vol] 0.87 10*3/uL 0.83-4.51 [facility] Work Phone: Basophil percentageon 2021 Basophil percentage 0 SEEN /hpf [facility] Work Phone: Basophils/100 WBC (Bld) 0.4 % 0-1 [facility] Work Phone: Bilirubin [Mass/Vol] 0.30 mg/dL 0.20-1.00 [facility] Work Phone: Comment on above: For patients on eltr ombopag therapy, use of Dimension [place] TBIL is not recommended. Chloride [Moles/Vol] 103 mmol/L 98-107 [facility] Work Phone: Eosinophils/100 WBC (Bld) 0.0 % 0-5 [facility] Work Phone: Glucose [Mass/Vol] 545 mg/dL 74-106 [facility] Work Phone: Comment on above: Critical Result(s) C alled at: 00:43:30 01/31/2022 by: PERRY IGLESIAS TO RICA STEPHEN. Results read back by same.Glucose result greater than or equal to 200 mg/dLsuggests DIABETES MELLITUS per A.D.A. criteria. Neutrophils (Bld) [#/Vol] 7.0 10*3/uL 2.0-7.7 [facility] Work Phone: Neutrophils/100 WBC (Bld) 78.6 % 47-70 [facility] Work Phone: Potassium [Moles/Vol] 4.6 mmol/L 3.5-5.1 [facility] Work Phone: Comment on above: Moderate Hemolysis, Result may be falsely increased. Protein [Mass/Vol] 7.4 g/dL 6.4-8.2 [facility] Work Phone: Sodium [Moles/Vol] 135 mmol/L 136-145 [facility] Work Phone: WBC (Bld) [#/Vol] 8.9 10*3/uL 4.4-11.0 [facility] Work Phone: Bilirubin Test strip Ql (U)o n 01-31-2022 Bilirubin Ql (U) Negative Negative [facility] Work Phone: Blood erythrocytes count (nu mber/volume)on 01-31-2022 RBC (Bld) [#/Vol] 4.98 10*6/uL 4.2-5.4 [facility] Work Phone: Blood hemoglobin measurement (mass/volume)on 01-31-2022 Hemoglobin (Bld) [Mass/Vol] 13.5 g/dL 12.0-15.0 [facility] Work Phone: Blood lymphocytes/100 leukoc yteson 01-31-2022 Lymphocytes/100 WBC (Bld) 9.8 % 19-41 [facility] Work Phone: Blood monocytes/100 leukocyt eson 01-31-2022 Monocytes/100 WBC (Bld) 6.4 % 0-10 [facility] Work Phone: Blood platelet mean volumeon 01-31-2022 Platelet mean volume (Bld) [Entitic vol] 9.6 fL 6.2-12.0 [facility] Work Phone: Determination of erythrocyte mean corpuscular volume (MCV)on 01-31-2022 MCV (RBC) [Entitic vol] 85.7 fL 81-99 [facility] Work Phone: Glucose Glucometer (BldC) [M ass/Vol]on 01-31-2022 Glucose [Mass/Vol] 399 mg/dL 74-106 [facility] Work Phone: Comment on above: MANAGEMENT OF PATIEN T CARE PER NURSING PROTOCOL HCO3 (BldA) [Moles/Vol]on HCO3 (Bld) [Moles/Vol] 25 mmol/L 22-26 [facility] Work Phone: Hematocrit Auto (Bld) [Volum e fraction]on 01-31-2022 Hematocrit (Bld) [Volume fraction] 42.7 % 37-47 [facility] Work Phone: Ketones Test strip Ql (U)on 01-31-2022 Ketones Ql (U) Negative Negative [facility] Work Phone: Laboratory - Chemistry and C hemistry - challengeon 01-31-2022 CO2 [Moles/Vol] 26 mmol/L 23-33 [facility] Work Phone: ALP [Catalytic activity/Vol] 89 U/L 45-117 [facility] Work Phone: ALT [Catalytic activity/Vol] 44 U/L 13-56 [facility] Work Phone: CO2 [Moles/Vol] 26.0 mmol/L 21.0-32.0 [facility] Work Phone: Globulin (S) [Mass/Vol] 4.0 g/dL 2.2-4.2 [facility] Work Phone: Urea nitrogen/Creatinine [Mass ratio] 24.0 mg/mg 10-20 [facility] Work Phone: Laboratory - Hematology and Cell countson 01-31-2022 Erythrocyte distribution width (RBC) [Entitic vol] 46.8 fL 35.1-43.9 [facility] Work Phone: Erythrocyte distribution width (RBC) [Ratio] 14.9 % 11.6-14.6 [facility] Work Phone: Immature granulocytes/100 WBC (Bld) 4.800 % 0.0-0.9 [facility] Work Phone: Comment on above: IG% - Immature Granu locytes (promyelocytes, myelocytes and metamyelocytes) > 1% indicates that a LEFT SHIFT is Present. MCH (RBC) [Entitic mass] 27.1 pg 27.0-32.0 [facility] Work Phone: Nucleated RBC/100 WBC (Bld) [Ratio] 0 % 0-5 [facility] Work Phone: MCHC Auto (RBC) [Mass/Vol]on 01-31-2022 MCHC (RBC) [Mass/Vol] 31.6 g/dL 32-36 [facility] Work Phone: Mucus LM Ql (Urine sed)on Mucus Ql (Urine sed) 0 SEEN /hpf [facility] Work Phone: Nitrite Test strip Ql (U)on 01-31-2022 Nitrite Ql (U) Negative Negative [facility] Work Phone: No Panel Informationon 01-31 Bed Mix Venous Bld PCO2 at Pat Temp 43.6 mmHg 41-51 [facility] Work Phone: Blood Gas Specimen Type REJI [facility] Work Phone: Venous Blood Base Excess -1 mmol/L -1.0-3.5 [facility] Work Phone: Estimated Creatinine Clearance Calc 39.78 ml/min [facility] Work Phone: Estimated GFR (MDRD) Amer 56 mL/min >60 [facility] Work Phone: Comment on above: GFR Calc Estimated GFR (MDRD) Non-Af Amer 46 mL/min >60 [facility] Work Phone: Comment on above: Non- GFR Calc PO2 venouson 01-31-2022 Oxygen (BldV) [Partial pressure] 42 mm[Hg] 25-40 [facility] Work Phone: Platelets bldon 01-31-2022 Platelets (Bld) [#/Vol] 317 10*3/uL 150-450 [facility] Work Phone: Protein Test strip Ql (U)on 01-31-2022 Protein Ql (U) Negative Negative [facility] Work Phone: Serum or plasma acetone dread urement (mass/volume)on 01-31-2022 Acetone [Mass/Vol] Negative NEG [facility] Work Phone: Serum or plasma albumin dread urement (mass/volume)on 01-31-2022 Albumin [Mass/Vol] 3.4 g/dL 3.2-5.0 [facility] Work Phone: Serum or plasma albumin/glob ulin mass ratioon 01-31-2022 Albumin/Globulin [Mass ratio] 0.8 {ratio} 0.9-2.4 [facility] Work Phone: Serum or plasma calcium dread urement (mass/volume)on 01-31-2022 Calcium [Mass/Vol] 8.7 mg/dL 8.5-10.1 [facility] Work Phone: Serum or plasma creatinine m easurement (mass/volume)on 01-31-2022 Creatinine [Mass/Vol] 1.25 mg/dL 0.55-1.02 [facility] Work Phone: Comment on above: The validity of the calculated GFR & GFRAA in patients over 70 years has not been determined. Clinical correlation is essential. Serum or plasma urea nitroge n measurement (mass/volume)on 01-31-2022 Urea nitrogen [Mass/Vol] 30 mg/dL 7-18 [facility] Work Phone: Squamous epithelial cells de tection in urine sediment by light microscopyon 01-31-2022 Epithelial cells.squamous LM Ql (Urine sed) 0 SEEN /hpf [facility] Work Phone: Thin prep Papanicolaou smear with manual screeningon 01-31-2022 Thin prep Papanicolaou smear with manual screening 20 U/L 15-37 [facility] Work Phone: Comment on above: Moderate Hemolysis, Result may be falsely increased. Thin prep Papanicolaou smear with manual screening 6 5-15 [facility] Work Phone: Urine blood detectionon RBC Ql (U) Negative Negative [facility] Work Phone: RBC Ql (U) 0 SEEN /hpf [facility] Work Phone: Urine clarityon 01-31-2022 Clarity (U) Clear Clear [facility] Work Phone: Urine color determinationon 01-31-2022 Color (U) Straw Yellow [facility] Work Phone: Urine glucose detectionon Glucose Ql (U) 1000 mg/dl Normal [facility] Work Phone: Urine leukocyte esterase det ection by dipstickon 01-31-2022 Leukocyte esterase Test strip Ql (U) Negative Negative [facility] Work Phone: Urine pHon 01-31-2022 pH (U) 6.0 [pH] [facility] Work Phone: Urine sediment bacteria coun t by microscopy (number/high power field)on 01-31-2022 Bacteria LM.HPF (Urine sed) [#/Area] 0 /[HPF] None Seen [facility] Work Phone: Urine specific gravity measu rementon 01-31-2022 Specific gravity (U) [Rel density] 1.015 [facility] Work Phone: Urobilinogen Auto test strip Ql (U)on 01-31-2022 Urobilinogen Ql (U) Normal mg/dl Normal [facility] Work Phone: Vital signson 01-31-2022 Oxygen saturation in Blood 76 % 50-70 [facility] Work Phone: pH measurementon 01-31-2022 pH (Unsp spec) 7.36 [pH] 7.32-7.42 [facility] Work Phone: Absolute lymphocyte counton 01-25-2022 Lymphocytes Auto (Unsp spec) [#/Vol] 1.06 10*3/uL 0.83-4.51 [facility] Work Phone: Basophil percentageon 2021 Basophils/100 WBC (Bld) 0.7 % 0-1 [facility] Work Phone: [phone] Chloride [Moles/Vol] 104 mmol/L 98-107 [facility] Work Phone: [phone] Eosinophils/100 WBC (Bld) 2.9 % 0-5 [facility] Work Phone: [phone] Glucose [Mass/Vol] 166 mg/dL 74-106 [facility] Work Phone: [phone] Comment on above: Fasting Glucose resu lt greater than or equal to 126 mg/dL suggests DIABETES MELLITUS per A.D.A. criteria. Neutrophils (Bld) [#/Vol] 4.2 10*3/uL 2.0-7.7 [facility] Work Phone: Neutrophils/100 WBC (Bld) 68.9 % 47-70 [facility] Work Phone: [phone] Potassium [Moles/Vol] 4.1 mmol/L 3.5-5.1 [facility] Work Phone: [phone] Sodium [Moles/Vol] 139 mmol/L 136-145 [facility] Work Phone: WBC (Bld) [#/Vol] 6.1 10*3/uL 4.4-11.0 [facility] Work Phone: [phone] Blood erythrocytes count (nu mber/volume)on 01-25-2022 RBC (Bld) [#/Vol] 4.60 10*6/uL 4.2-5.4 [facility] Work Phone: Blood hemoglobin measurement (mass/volume)on 01-25-2022 Hemoglobin (Bld) [Mass/Vol] 12.3 g/dL 12.0-15.0 [facility] Work Phone: Blood lymphocytes/100 leukoc yteson 01-25-2022 Lymphocytes/100 WBC (Bld) 17.3 % 19-41 [facility] Work Phone: Blood monocytes/100 leukocyt eson 01-25-2022 Monocytes/100 WBC (Bld) 9.9 % 0-10 [facility] Work Phone: Blood platelet mean volumeon 01-25-2022 Platelet mean volume (Bld) [Entitic vol] 9.2 fL 6.2-12.0 [facility] Work Phone: Determination of erythrocyte mean corpuscular volume (MCV)on 01-25-2022 MCV (RBC) [Entitic vol] 87.8 fL 81-99 [facility] Work Phone: Hematocrit Auto (Bld) [Volum e fraction]on 01-25-2022 Hematocrit (Bld) [Volume fraction] 40.4 % 37-47 [facility] Work Phone: Laboratory - Chemistry and C hemistry - challengeon 01-25-2022 CO2 [Moles/Vol] 31.0 mmol/L 21.0-32.0 [facility] Work Phone: Urea nitrogen/Creatinine [Mass ratio] 11.1 mg/mg 10-20 [facility] Work Phone: Laboratory - Hematology and Cell countson 01-25-2022 Erythrocyte distribution width (RBC) [Entitic vol] 50.0 fL 35.1-43.9 [facility] Work Phone: Erythrocyte distribution width (RBC) [Ratio] 15.7 % 11.6-14.6 [facility] Work Phone: Immature granulocytes/100 WBC (Bld) 0.300 % 0.0-0.9 [facility] Work Phone: Comment on above: IG% - Immature Granu locytes (promyelocytes, myelocytes and metamyelocytes) > 1% indicates that a LEFT SHIFT is Present. MCH (RBC) [Entitic mass] 26.7 pg 27.0-32.0 [facility] Work Phone: Nucleated RBC/100 WBC (Bld) [Ratio] 0 % 0-5 [facility] Work Phone: MCHC Auto (RBC) [Mass/Vol]on 01-25-2022 MCHC (RBC) [Mass/Vol] 30.4 g/dL 32-36 [facility] Work Phone: No Panel Informationon 01-25 D-Dimer Quantitative (PE/DVT) 0.85 FEU/ug/m 0.27-0.49 [facility] Work Phone: Comment on above: RESULTS CALLED TO LAVINIA RODRÍGUEZ RN 01/25/22 1356 Rubina Chairez.REPORT READ BACK BY SAME.D-Dimer ELEVATED (>0.49): Additional studies and clinicalassessments are indicated to conclude diagnosis of:Deep Vein Thrombosis (DVT) or Pulmonary Embolism (PE) Estimated Creatinine Clearance Calc 61.39 ml/min [facility] Work Phone: Estimated GFR (MDRD) Amer 91 mL/min >60 [facility] Work Phone: Comment on above: GFR Calc Estimated GFR (MDRD) Non-Af Amer 75 mL/min >60 [facility] Work Phone: Comment on above: Non- GFR Calc Troponin I High Sensitivity < 3 pg/mL 3.0-54.0 [facility] Work Phone: Comment on above: Please Note: New Selene t Units and Gender Specific Reference Ranges. For more information see Policy Stat Procedure [place] High Sensitivity Troponin (TNIH) and attachments. SARS-CoV-2 & FLU Antigen (Rapid) SARS-CoV-2 (COVID 19) [facility] Work Phone: Platelets bldon 01-25-2022 Platelets (Bld) [#/Vol] 181 10*3/uL 150-450 [facility] Work Phone: Serum or plasma calcium dread urement (mass/volume)on 01-25-2022 Calcium [Mass/Vol] 8.5 mg/dL 8.5-10.1 [facility] Work Phone: Serum or plasma creatinine m easurement (mass/volume)on 01-25-2022 Creatinine [Mass/Vol] 0.81 mg/dL 0.55-1.02 [facility] Work Phone: Comment on above: The validity of the calculated GFR & GFRAA in patients over 70 years has not been determined. Clinical correlation is essential. Serum or plasma urea nitroge n measurement (mass/volume)on 01-25-2022 Urea nitrogen [Mass/Vol] 9 mg/dL 7-18 [facility] Work Phone: Thin prep Papanicolaou smear with manual screeningon 01-25-2022 Thin prep Papanicolaou smear with manual screening 4 5-15 [facility] Work Phone: Culture, urineon 11-12-2021 Bacteria identified Cx Nom (U) Presumptive Lactobacillus sp. [facility] Work Phone: Absolute lymphocyte counton 11-10-2021 Lymphocytes Auto (Unsp spec) [#/Vol] 1.61 10*3/uL 0.83-4.51 [facility] Work Phone: Basophil percentageon 2021 Basophils/100 WBC (Bld) 0.7 % 0-1 [facility] Work Phone: Chloride [Moles/Vol] 102 mmol/L 98-107 [facility] Work Phone: Eosinophils/100 WBC (Bld) 3.1 % 0-5 [facility] Work Phone: Glucose [Mass/Vol] 281 mg/dL 74-106 [facility] Work Phone: Comment on above: Glucose result great er than or equal to 200 mg/dLsuggests DIABETES MELLITUS per A.D.A. criteria. Neutrophils (Bld) [#/Vol] 3.7 10*3/uL 2.0-7.7 [facility] Work Phone: Neutrophils/100 WBC (Bld) 60.3 % 47-70 [facility] Work Phone: Potassium [Moles/Vol] 4.1 mmol/L 3.5-5.1 [facility] Work Phone: Sodium [Moles/Vol] 138 mmol/L 136-145 [facility] Work [facility]: WBC (Bld) [#/Vol] 6.1 10*3/uL 4.4-11.0 [facility] Work Phone: Blood erythrocytes count (nu mber/volume)on 11-10-2021 RBC (Bld) [#/Vol] 4.46 10*6/uL 4.2-5.4 [facility]: Blood hemoglobin measurement (mass/volume)on 11-10-2021 Hemoglobin (Bld) [Mass/Vol] 11.8 g/dL 12.0-15.0 [facility] Work Phone: Blood lymphocytes/100 leukoc yteson 11-10-2021 Lymphocytes/100 WBC (Bld) 26.3 % 19-41 [facility] Work Phone: Blood monocytes/100 leukocyt eson 11-10-2021 Monocytes/100 WBC (Bld) 9.1 % 0-10 [facility] Work Phone: Blood platelet mean volumeon 11-10-2021 Platelet mean volume (Bld) [Entitic vol] 9.2 fL 6.2-12.0 [facility] Work Phone: Determination of erythrocyte mean corpuscular volume (MCV)on 11-10-2021 MCV (RBC) [Entitic vol] 83.9 fL 81-99 [facility] Work Phone: Hematocrit Auto (Bld) [Volum e fraction]on 11-10-2021 Hematocrit (Bld) [Volume fraction] 37.4 % 37-47 [facility] Work Phone: Laboratory - Chemistry and C hemistry - challengeon 11-10-2021 Magnesium [Mass/Vol] 1.7 mg/dL 1.6-2.6 [facility] Work Phone: CO2 [Moles/Vol] 30.0 mmol/L 21.0-32.0 [facility] Work Phone: Urea nitrogen/Creatinine [Mass ratio] 14.9 mg/mg 10-20 [facility] Work Phone: Laboratory - Hematology and Cell countson 11-10-2021 Erythrocyte distribution width (RBC) [Entitic vol] 50.7 fL 35.1-43.9 [facility] Work Phone: Erythrocyte distribution width (RBC) [Ratio] 16.8 % 11.6-14.6 [facility] Work Phone: Immature granulocytes/100 WBC (Bld) 0.500 % 0.0-0.9 [facility] Work Phone: Comment on above: IG% - Immature Granu locytes (promyelocytes, myelocytes and metamyelocytes) > 1% indicates that a LEFT SHIFT is Present. MCH (RBC) [Entitic mass] 26.5 pg 27.0-32.0 [facility] Work Phone: Nucleated RBC/100 WBC (Bld) [Ratio] 0 % 0-5 [facility] Work Phone: MCHC Auto (RBC) [Mass/Vol]on 11-10-2021 MCHC (RBC) [Mass/Vol] 31.6 g/dL 32-36 [facility] Work Phone: No Panel Informationon 11-10 Thyroid Stimulating Hormone (TSH) 3.14 uIU/mL 0.358-3.74 [facility] Work Phone: Estimated GFR (MDRD) Amer 71 mL/min >60 [facility] Work Phone: Comment on above: GFR Calc Estimated GFR (MDRD) Non-Af Amer 59 mL/min >60 [facility] Work Phone: Comment on above: Non- GFR Calc Nasal Screen MRSA/MSSA [facility] Work Phone: Platelets bldon 11-10-2021 Platelets (Bld) [#/Vol] 261 10*3/uL 150-450 [facility] Work Phone: Serum or plasma albumin dread urement (mass/volume)on 11-10-2021 Albumin [Mass/Vol] 3.4 g/dL 3.2-5.0 [facility] Work Phone: Serum or plasma calcium dread urement (mass/volume)on 11-10-2021 Calcium [Mass/Vol] 9.1 mg/dL 8.5-10.1 [facility] Work Phone: Serum or plasma creatinine m easurement (mass/volume)on 11-10-2021 Creatinine [Mass/Vol] 1.01 mg/dL 0.55-1.02 [facility] Work Phone: Comment on above: The validity of the calculated GFR & GFRAA in patients over 70 years has not been determined. Clinical correlation is essential. Serum or plasma urea nitroge n measurement (mass/volume)on 11-10-2021 Urea nitrogen [Mass/Vol] 15 mg/dL 7-18 [facility] Work Phone: Thin prep Papanicolaou smear with manual screeningon 11-10-2021 Thin prep Papanicolaou smear with manual screening 6 5-15 [facility] Work Phone: Whole blood hemoglobin A1c/t otal hemoglobin ratio (mass fraction)on 11-10-2021 HbA1c (Bld) [Mass fraction] 8.0 % 3.8-5.6 [facility] Work Phone: Comment on above: Normal < 5.7 % Predi abetic 5.7 - 6.4 % Diabetic >or= 6.5 % Please note range changes. Glucose Glucometer (BldC) [M ass/Vol]on 09-25-2021 Glucose [Mass/Vol] 136 mg/dL 70-110 [facility] Work Phone: Comment on above: MANAGEMENT OF PATIEN T CARE PER NURSING PROTOCOL Basophil percentageon 2020 WBC (Bld) [#/Vol] 7.1 10*3/uL 4.4-11.0 [facility] Work Phone: Blood erythrocytes count (nu mber/volume)on 08-07-2021 RBC (Bld) [#/Vol] 4.56 10*6/uL 4.2-5.4 [facility] Work Phone: Blood hemoglobin measurement (mass/volume)on 08-07-2021 Hemoglobin (Bld) [Mass/Vol] 12.0 g/dL 12.0-15.0 [facility] Work Phone: Blood platelet mean volumeon 08-07-2021 Platelet mean volume (Bld) [Entitic vol] 9.9 fL 6.2-12.0 [facility] Work Phone: Determination of erythrocyte mean corpuscular volume (MCV)on 08-07-2021 MCV (RBC) [Entitic vol] 86.8 fL 81-99 [facility] Work Phone: Hematocrit Auto (Bld) [Volum e fraction]on 08-07-2021 Hematocrit (Bld) [Volume fraction] 39.6 % 37-47 [facility] Work Phone: Laboratory - Hematology and Cell countson 08-07-2021 Erythrocyte distribution width (RBC) [Entitic vol] 47.4 fL 35.1-43.9 [facility] Work Phone: Erythrocyte distribution width (RBC) [Ratio] 15.2 % 11.6-14.6 [facility] Work Phone: MCH (RBC) [Entitic mass] 26.3 pg 27.0-32.0 [facility] Work Phone: MCHC Auto (RBC) [Mass/Vol]on 08-07-2021 MCHC (RBC) [Mass/Vol] 30.3 g/dL 32-36 [facility] Work Phone: Platelets bldon 08-07-2021 Platelets (Bld) [#/Vol] 291 10*3/uL 150-450 [facility] Work Phone: Provider Note - ED [...] made to minimize errors. Minor errors in waterworks chief engineer may be present. Please call if questions.. [...] From Triage - ED 21-May-2021 20:35 Normal [facility] LAB Venous Duplex Ultra sound DVTon 05-22-2021 [facility] Venous Duplex [place] [address] [phone], Vascular Lab Report Lower Venous Duplex Ultrasound Patient Name: FLEX Hylton JE Reading Physician: [id number] Hector Vegas MD Study Date: 05/22/2021 Referring Physician: [id number] SILVANA HENDERSON MRN/PID: [id number] PCP: Accession/Order#: [id number] CC Report to: Date of : 1960 Technologist: Gladis Campbell RVT Gender: F Technologist 2: Admission Status: Outpatient Location Performed: [facility] Diagnosis/ICD: M79.605-Pain in left leg; M79.89-Left leg swelling Procedure/CPT: 71705 Peripheral venous duplex scan for DVT Limited-[id number] Pertinent History: Leg pain and LE Edema. [...] Spontaneous/Phasic Peroneal Yes None PTV Yes None [id number] Hector Vegas MD Final Normal [facility] Triage - EDon 05-21-2021 Triage - [...] obeys commands Best Verbal Response: (V5) oriented Liberty Score: 15 Allergies: yes Patient has homicidal [...] 21-May-2021 20:40 by Demetrio Cerda (SAM) Normal [facility] BASIC METABOLIC PANELon 06- Anion gap [Moles/Vol] 13 mmol/L Normal 10 - [address] [facility] Comment on above: Performed By: #### B MP #### [address] [address] Calcium [Mass/Vol] 9.4 mg/dL Normal 8.6 - 10.3 [facility] Comment on above: Performed By: #### B MP #### [address] [address] Chloride [Moles/Vol] 96 mmol/L Low 98 - 107 [facility] Comment on above: Performed By: #### B MP #### [address] [address] Creatinine [Mass/Vol] 0.92 mg/dL Normal 0.50 - 1.05 [facility] Comment on above: Performed By: #### B MP #### [address] [address] GFR- AM. >60 Normal >60 [facility] Comment on above: Result Comment: CALC ULATIONS OF ESTIMATED GFR ARE PERFORMED USING THE MDRD STUDY EQUATION FOR THE IDMS-TRACEABLE CREATININE METHODS. CLIN CHEM 2007;53:766-72 Performed By: #### B MP #### [address] [address] GFR-NON AM. >60 Normal >60 [facility] Comment on above: Performed By: #### B MP #### [address] [address] Glucose [Mass/Vol] 342 mg/dL High 74 - 99 [facility] Comment on above: Performed By: #### B MP #### [address] [address] HCO3 (Bld) [Moles/Vol] 28 mmol/L Normal 21 - 32 [facility] Comment on above: Performed By: #### B MP #### [address] [address] Potassium [Moles/Vol] 4.8 mmol/L Normal 3.5 - 5.[address] [facility] Comment on above: Performed By: #### B MP #### [address] [address] Sodium [Moles/Vol] 132 mmol/L Low 136 - 145 [facility] Comment on above: Performed By: #### B MP #### [address] [address] Urea nitrogen [Mass/Vol] 18 mg/dL Normal 6 - 23 [facility] Comment on above: Performed By: #### B MP #### [address] [address] GLUCOSE-POCTon 02-13-2021 Glucose [Mass/Vol] 332 mg/dL High 74 - 99 [facility] Comment on above: Performed By: #### G TAYE #### [address] [address] [place] [address] Provider Note - ED v2on 01-27 Provider [...] Alert and oriented x4, GCS 15 , c engineer II-XII grossly intact. Sensation and motor [...] steroid shot today around 2pm. 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 Patient does not know meds [...] SIGNS: T PRBP SpO2O2(LPM) %FiO2 Method 13-Feb-2021 03:12:[id number] 92 room air, no respiratory support 13-Feb-2021 01:16:[id number]/59 92 room air, no respiratory support 13-Feb-2021 00:01:[id number] 95 room air, no respiratory support MEDICAL [...] Scores Last Updated: 13-Feb-2021 03:17 by Jesus Amezquita () References: 1. Data Referenced From Triage - ED 13-Feb-2021 00:01 [facility] Risk Screen - Adult Emergenc [...] instruction; written material Cultural Considerationsnone Developmental Considerationsnone Mu-Ism Considerationsnone Learning Assessment (Other Learner): Learning Assessment (Other Learner): Other learner availableno Pressure Injury/TB/Substance: Pressure Injury: Do you have a coughno Substance Use Current or Former Historynever: Cigarette/Tobacco, e-Cigarette/Vaping, Alcohol, Street Drugs Admission Risk Screen: Significant IndicatorsComplete CAGE: CAGE: Is this an injured patient at a Trauma Center ([facility]/[place]/[facility]/[place]): no Electronic Signatures: Tigist Yoder (SAM) (Signed 13-Feb-2021 00:07) Authored: Preferred Language, Advanced Directives, Family Violence Adult, Learning Assessment (Patient), Learning Assessment (Other Learner), Pressure Injury/TB/Substance, Pressure Injury, CAGE Last Updated: 13-Feb-2021 00:07 by Tigist Yoder (SAM) [facility] Triage - EDon 02-13-2021 Triage - ED Chart Review: ARRIVAL INFORMATION Mode of Arrival: private vehicle CHIEF COMPLAINT FLEX TABARES is a Female patient with a chief complaint of hyperglycemia (Patient states, My sugar has been up the past 4-5 days. It's so high my meter wont register. I had a steroid shot today around 2pm. 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 Patient does not know meds [...] obeys commands Best Verbal Response: (V5) oriented Liberty Score: 15 Allergies: yes Patient has homicidal [...] Updated: 13-Feb-2021 00:06 by Tigist Yoder (SAM) [facility] OPERATIVE PROCEDURESon 02-10 OPERATIVE PROCEDURES [facility] OPERATIVE REPORT NAME ACCOUNT SEX AGE ADMIT DISCHARGE PT MED. RECORD# NUMBER DATE DATE TYPE FLEX WOOTEN [id number] F 59 02/08/20 02/08/20 2 Daphney [id number] ROOM: [facility] DATE OF : 1960 DICTATING PHYSICIAN: Pb Drummond DATE OF SURGERY: February 08, 2020 SURGEON: Pb Drummond MD SAFETY RISK LEAD: None. ANESTHESIOLOGIST: Daphney Velasquez MD ANESTHETIC: Local [...] Pb Drummond MD 02/08/20 13:43 JOB #: [id number] Transcribed By: yogesh 02/09/20 07:13 Electronically signed by: E-SIGN DR. PB DRUMMOND M.D. 02/11/20 09:08 Page 2 of 2 FLEX WOOTEN Operative Report Normal [facility] CNOVon 05-09-2019 CNOV Office Visit (RHBATH ) FLEX WOOTEN ([id number]) 1960 F Date Time Provider Department 05/09/19 [...] for [address] Musa at [facility]. Takes oxycodone 2 times daily. Left knee [...] Date - DVT (deep venous thrombosis) ([facility]) 2014 post knee replacement - Fibromyalgia - Hemorrhage of gastrointestinal tract, unspecified - Hemorrhage of rectum and anus - Internal hemorrhoids without mention of complication - Other forms of migraine - Other unspecified back disorder - Pulmonary embolism ([facility]) 2013 PAST SURGICAL HISTORY Procedure Laterality Date - COLONOSCOP W/ OR W/O [facility] SPEC 2002 Colonoscopy - INTRATHECAL BLOCK [...] AJ 1:160, CK 272 Negative aside DNA, BARREL TURNER, SSA, SSB, rheumatoid factor, CCP, Acevedo Low [...] Jackie Rojas MD Referring Provider: JACKIE ROJAS [[id number]] Allergies As of Date: 05/09/2019 Noted Allergy [...] JACKIE ROJAS MD on 05/09/19 [facility] PROGRESSon 05-09-2019 PROGRESS HNO ID: [id number] Author: Jackie Rojas Service: ? Author Type: [...] for [address] Musa at [facility]. Takes oxycodone 2 times daily. Left knee [...] Date - DVT (deep venous thrombosis) ([facility]) 2014 post knee replacement - Fibromyalgia - Hemorrhage of gastrointestinal tract, unspecified - Hemorrhage of rectum and anus - Internal hemorrhoids without mention of complication - Other forms of migraine - Other unspecified back disorder - Pulmonary embolism ([facility]) 2013 PAST SURGICAL HISTORY Procedure Laterality Date - COLONOSCOP W/ OR W/O [facility] SPEC 2002 Colonoscopy - INTRATHECAL BLOCK [...] left knee -- meniscus repair; Dr. Weller, [facility] - REMOVAL OF OVARY(S) - REMOVE [...] AJ 1:160, CK 272 Negative aside DNA, BARREL TURNER, SSA, SSB, rheumatoid factor, CCP, Acevedo Low [...] fail to improve. Jackie Rojas MD Normal [facility] AJ by IFA Screenon 04-12-20 19 AJ by IFA Screen SEE BELOW Normal [facility] Comment on above: Result Comment: AJ Positive AB NEGAT Normal range : negative at <1:80 serum dilution. AJ Titer 1:160 AB NEGAT AJ Pattern Homogeneous Performing Laboratory: [facility] [address] [place] [address] Performed By: #### R F1 #### [place] [address] CCP Antibody, IgGon 04-12-20 19 CCP Antibody, IgG <15 Normal <20 [facility] Comment on above: Result Comment: < 20 units: Negative 20-39 units: Weak Positive 40-59 units: Moderate Positive > 60 units: Strong Positive The following results were obtained with the Opinion[employer] QUANTA Lite CCP3 IgG VENESSA. Anti-CCP values obtained with different manufacturers' assay methods may not be used interchangeably. The magnitude of the reported IgG levels cannot be correlated to an endpoint titer. Performing Laboratory: [facility] [address] [place] [address] Performed By: #### R F1 #### [place] [address] DS-DNA Abon 04-12-2019 DS-DNA Ab SEE BELOW Normal [facility] Comment on above: Result Comment: DNA Antibody w/ Conf. <12 <30 IU/mL Negative for ds DNA Antibodies Negative: <30 IU/mL Equivocal: 30-74 IU/mL Positive: >74 IU/mL Performing Laboratory: [facility] [address] [place] [address] Performed By: #### R F1 #### [place] [address] BARREL TURNER Antibodyon 04-12-2019 BARREL TURNER Antibody <0.2 Normal <1.0 [facility] Comment on above: Result Comment: Nega tive Negative: <1.0 AI Positive: >0.9 AI Performing Laboratory: [place] [address] Performed By: #### R F1 #### [place] [address] Sjogren Antibodieson 019 Sjogren Antibodies SEE BELOW Normal [facility] Comment on above: Result Comment: SSA Antibody <0.2 <1.0 AI Negative Negative: <1.0 AI Positive: >0.9 AI SSB Antibody <0.2 <1.0 AI Negative Negative: <1.0 AI Positive: >0.9 AI Performing Laboratory: [place] [address] Performed By: #### R F1 #### [place] [address] Acevedo Abs IgGon 04-12-2019 Acevedo Abs IgG SEE BELOW Normal [facility] Comment on above: Result Comment: Sm A ntibody <0.2 <1.0 AI Negative Negative: <1.0 AI Positive: >0.9 AI Performing Laboratory: [facility] [address] [place] [address] Performed By: #### R F1 #### [place] [address] Total 25-OH Vitamin Don 03-29 Total 25-OH Vitamin D 31.3 ng/mL Normal 30.0-100.0 [facility] Comment on above: Performed By: #### R F1 #### [place] [id number] Kelsi 04-09-2019 CNOV Office Visit (RHBATH ) FLEX WOOTEN ([id number]) 1960 F Date Time Provider Department 04/09/19 10:30 AM JACKIE ROJAS RHBLES During your visit today, we recorded the following information about you: Temperature Pulse Blood pressure Weight 98.4 degrees 68/minute 126/80 107 kg Height 1.626 m Jackie Rojas MD 04/09/2019 2:27 PM Signed RHEUMATOLOGY NEW PATIENT NOTE REFERRING PHYSICIAN: iRca Padgett CHIEF COMPLAINT: Patient presents with: New [...] for [address] Musa at [facility]. Takes oxycodone 2 times daily. Left knee [...] Date - DVT (deep venous thrombosis) ([facility]) 2014 post knee replacement - Fibromyalgia - Hemorrhage of gastrointestinal tract, unspecified - Hemorrhage of rectum and anus - Internal hemorrhoids without mention of complication - Other forms of migraine - Other unspecified back disorder - Pulmonary embolism ([facility]) 2014 PAST SURGICAL HISTORY Procedure Laterality Date - COLONOSCOP W/ OR W/O [facility] SPEC 2002 Colonoscopy - INTRATHECAL BLOCK [...] file Gets together: Not on file Attends taoist service: Not on file Active member of [...] Education Completed: 13 years Marital Status: to [facility] with 2 children History Review: I have [...] SCREEN - DNA ANTIBODY DS BLD - BARREL TURNER ANTIBODY BLOOD - ACEVEDO IGG AB - [...] Jackie Rojas MD Referring Provider: RICA PADGETT [[id number]] Allergies As of Date: 04/09/2019 Noted Allergy [...] Order(s):AJ BY IFA SCREEN [SQANAIFS] Order #: [id number] FUTURE DNA ANTIBODY DS BLD [SQDNAAB] Order #: [id number] FUTURE BARREL TURNER ANTIBODY BLOOD [SQARNP] Order #: [id number] FUTURE ACEVEDO IGG AB [SQSMAB] Order #: [id number] FUTURE SJOGREN ABS SSA/SSB [SQXSSAB] Order #: [id number] FUTURE RHEUMATOID FACTOR BL [SQRF] Order #: [id number] FUTURE CCP ANTIBODY IGG [SQCCP] Order #: [id number] FUTURE CK CREATINE KINASE [SQCK] Order #: [id number] FUTURE VITAMIN D 25 HYDROXY [SQVITD] Order #: [id number] FUTURE FERRITIN BLD [SQFERR] Order #: [id number] FUTURE IRON + TIBC [SQIRON] Order #: [id number] FUTURE UA WITH CULTURE IF INDICATED [SQUACII] Order #: [id number] FUTURE CREATININE RANDOM UR [SQUCRR] Order #: [id number] FUTURE PROTEIN RANDOM UR [SQUTPR] Order #: [id number] FUTURE CBC + DIFF [SQCBCDIF] Order #: [id number] FUTURE COMP METABOLIC PANEL [SQCMP] Order #: [id number] FUTURE XR HAND GENERAL 3V PA/LAT/OBL LT [[id number]] Order #: [id number] FUTURE XR HAND GENERAL 3V PA/LAT/OBL RT [5181922] Order #: [id number] FUTURE XR FOOT GENERAL 3V AP/LAT/OBL LT [4979637] Order #: [id number] FUTURE XR FOOT GENERAL 3V AP/LAT/OBL RT [8182749] Order #: [id number] FUTURE XR SACROILIAC JOINTS 2V AP PELVIS/FERGUESON [3502850] Order #: [id number] FUTURE XR LUMBAR LIMITED 2V AP/LAT [3864196] Order #: [id number] FUTURE Prescriptions as of 04/09/2019 Sig: ATENOLOL [...] results. Follow-up and Disposition History Recorded Questionnaire: AG RHEU YEARLY ADL ASSESSMENT Toileting -> Independent Bathing -> Independent Upper Body Dressing -> Independent Lower Body Dressing -> Independent Grooming/Hygiene -> Independent Self Feeding -> Independent Home Management (laundry/cleaning/chore s/simple meal prep) -> Independent Encounter Status:Closed by JACKIE ROJAS MD on 04/09/19 Normal [facility] CPKon 04-09-2019 CK [Catalytic activity/Vol] 272 U/L High 26-192 [facility] Comment on above: Performed By: #### C K #### [place] [address] Comprehensive Panelon 2018 ALP [Catalytic activity/Vol] 87 U/L Normal 45-117 [facility] Comment on above: Performed By: #### P 14 #### [address] [address] Bilirubin [Mass/Vol] 0.2 mg/dL Normal 0.2-1.0 [facility] Comment on above: Performed By: #### P 14 #### [address] [address] Protein [Mass/Vol] 7.0 g/dL Normal 6.4-8.2 [facility] Comment on above: Performed By: #### P 14 #### [address] [address] ALT [Catalytic activity/Vol] 43 U/L Normal 12-78 [facility] Comment on above: Performed By: #### P 14 #### [facility] [address] [place], [place] [address] Creatinine [Mass/Vol] 0.74 mg/dL Normal 0.51-0.95 [facility] Comment on above: Performed By: #### P 14 #### [facility] [address] [place], [place] [address] AST [Catalytic activity/Vol] 22 U/L Normal 15-37 [facility] Comment on above: Performed By: #### P 14 #### [facility] [address] [place], [place] [address] Albumin [Mass/Vol] 3.6 g/dL Normal 3.4-5.0 [facility] Comment on above: Performed By: #### P 14 #### [facility] [address] [place], [place] [address] Anion gap [Moles/Vol] 9 mmol/L Normal 8-16 [facility] Comment on above: Performed By: #### P 14 #### [facility] [address] [place], [place] [address] CO2 [Moles/Vol] 31 mmol/L Normal 21-32 [facility] Comment on above: Performed By: #### P 14 #### [facility] [address] [place], [place] [address] Urea nitrogen [Mass/Vol] 16 mg/dL Normal 7-18 [facility] Comment on above: Performed By: #### P 14 #### [facility] [address] [place], [place] [address] Calcium [Mass/Vol] 8.9 mg/dL Normal 8.5-10.1 [facility] Comment on above: Performed By: #### P 14 #### [facility] [address] [place], [place] [address] Glucose [Mass/Vol] 124 mg/dL High 70-99 [facility] Comment on above: Performed By: #### P 14 #### [facility] [address] [place], [place] [address] Chloride [Moles/Vol] 100 mmol/L Normal 98-107 [facility] Comment on above: Performed By: #### P 14 #### [facility] [address] [place], [place] [address] Potassium [Moles/Vol] 4.4 mmol/L Normal 3.5-5.1 [facility] Comment on above: Performed By: #### P 14 #### [facility] [address] [place], [place] [address] Sodium [Moles/Vol] 136 mmol/L Normal 136-145 [facility] Comment on above: Performed By: #### P 14 #### [facility] [address] [place] [address] Creatinine,Urineon 9 Creatinine,Urine 71.9 mg/dL Normal [facility] Comment on above: Performed By: #### C REAU #### [facility] [address] [place] [address] Ferritinon 04-09-2019 Ferritin [Mass/Vol] 11.80 ng/mL Normal 8.00-252.00 [facility] Comment on above: Performed By: #### F ERR #### [facility] [address] [place] [address] Hemogram/Diffon 04-09-2019 Abs Immature Grans 0.03 thou/cmm Normal 0.00-0.05 [facility] Comment on above: Performed By: #### C BCD1 #### [facility] [address] [place] [address] Abs Neut (ANC) 4.15 thou/cmm Normal 1.56-6.13 [facility] Comment on above: Performed By: #### C BCD1 #### [facility] [address] [place] [address] Abs. Baso 0.06 thou/cmm Normal 0.01-0.08 [facility] Comment on above: Performed By: #### C BCD1 #### [facility] [address] [place] [address] Abs. Whiteside 0.43 thou/cmm Normal 0.27-0.70 [facility] Comment on above: Performed By: #### C BCD1 #### [facility] [address] [place] [address] Basophils/100 WBC (Bld) 0.9 % Normal [facility] Comment on above: Performed By: #### C BCD1 #### [facility] [address] [place] [address] Eosinophils (Bld) [#/Vol] 0.18 thou/cmm Normal 0.00-0.31 [facility] Comment on above: Performed By: #### C BCD1 #### [facility] [address] [place], [place] [address] Eosinophils/100 WBC (Bld) 2.6 % Normal [facility] Comment on above: Performed By: #### C BCD1 #### [facility] [address] [place] [address] Erythrocyte distribution width (RBC) [Ratio] 13.4 % Normal 11.7-14.4 [facility] Comment on above: Performed By: #### C BCD1 #### [facility] [address] [place] [address] Hematocrit (Bld) [Volume fraction] 39.8 % Normal 34.1-44.9 [facility] Comment on above: Performed By: #### C BCD1 #### [facility] [address] [place] [address] Hemoglobin (Bld) [Mass/Vol] 12.5 g/dL Normal 11.2-15.7 [facility] Comment on above: Performed By: #### C BCD1 #### [facility] [address] [place] [address] Immature Grans 0.40 % Normal [facility] Comment on above: Performed By: #### C BCD1 #### [facility] [address] [place] [address] Lymphocytes (Bld) [#/Vol] 2.09 thou/cmm Normal 1.18-3.74 [facility] Comment on above: Performed By: #### C BCD1 #### [facility] [address] [place] [address] Lymphocytes/100 WBC (Bld) 30.1 % Normal [facility] Comment on above: Performed By: #### C BCD1 #### [facility] [address] [place] [address] MCH (RBC) [Entitic mass] 26.7 pg Normal 25.6-32.2 [facility] Comment on above: Performed By: #### C BCD1 #### [facility] [address] [place] [address] MCHC (RBC) [Mass/Vol] 31.4 % Low 31.6-34.8 [facility] Comment on above: Performed By: #### C BCD1 #### [facility] [address] [place] [address] MCV (RBC) [Entitic vol] 85.0 fL Normal 79.4-94.8 [facility] Comment on above: Performed By: #### C BCD1 #### [facility] [address] [place] [address] Monocytes/100 WBC (Bld) 6.2 % Normal [facility] Comment on above: Performed By: #### C BCD1 #### [facility] [address] [place] [address] Platelet mean volume (Bld) [Entitic vol] 9.8 fL Normal 9.4-12.3 [facility] Comment on above: Performed By: #### C BCD1 #### [facility] [address] [place] [address] Platelets (Bld) [#/Vol] 204 thou/cmm Normal 182-369 [facility] Comment on above: Performed By: #### C BCD1 #### [facility] [address] [place] [address] RBC (Bld) [#/Vol] 4.68 mil/cmm Normal 3.93-5.22 [facility] Comment on above: Performed By: #### C BCD1 #### [facility] [address] [place] [address] RDW SD 41.3 fl Normal 36.4-46.3 [facility] Comment on above: Performed By: #### C BCD1 #### [facility] [address] [place] [address] Seg Neutrophil 59.8 % Normal [facility] Comment on above: Performed By: #### C BCD1 #### [facility] [address] [place] [address] WBC (Bld) [#/Vol] 6.94 thou/cmm Normal 3.98-10.04 [facility] Comment on above: Performed By: #### C BCD1 #### [facility] [address] [place] [id number] Iron % Saturationon 04-09-20 19 Iron % Saturation 17 % Low 20-55 [facility] Comment on above: Performed By: #### I RONS #### [facility] [address] [place] [id number] Iron Binding Cap. 369 ug/dL Normal 250-450 [facility] Comment on above: Performed By: #### I RONS #### [facility] [address] [place] [id number] Iron Serum 61 ug/dL Normal 50-170 [facility] Comment on above: Performed By: #### I RONS #### [facility] [address] [place] [id number] MDRD GFRon 04-09-2019 GFR/1.73 sq M predicted among non-blacks MDRD (S/P/Bld) [Vol rate/Area] mL/min/{1.73_m2} Normal >60mL/min/1 .73m2 [facility] Comment on above: Result Comment: If t he patient is , multiply the result by 1.210. Performed By: #### G FR #### [facility] [address] [place] [id number] PROGRESSon 04-09-2019 PROGRESS HNO ID: [id number] Author: Jackie Rojas Service: ? Author Type: [...] for [address] Musa at [facility]. Takes oxycodone 2 times daily. Left knee [...] Date - DVT (deep venous thrombosis) ([facility]) 2014 post knee replacement - Fibromyalgia - Hemorrhage of gastrointestinal tract, unspecified - Hemorrhage of rectum and anus - Internal hemorrhoids without mention of complication - Other forms of migraine - Other unspecified back disorder - Pulmonary embolism (HCC) 2014 PAST SURGICAL HISTORY Procedure Laterality Date - COLONOSCOP W/ OR W/O [facility] SPEC 2002 Colonoscopy - INTRATHECAL BLOCK [...] History Socioeconomic History Marital status: Spouse name: [facility] Number of children: 2 Years of education: [...] file Gets together: Not on file Attends taoist service: Not on file Active member of [...] Education Completed: 13 years Marital Status: to [facility] with 2 children History Review: I have [...] SCREEN - DNA ANTIBODY DS BLD - BARREL TURNER ANTIBODY BLOOD - ACEVEDO IGG AB - [...] discuss lab results. Jackie Rojas MD Normal [facility] Rheumatoid Factoron 04-09-20 19 Rheumatoid Factor < 10.0 Normal 0.0-15.0 [facility] Comment on above: Performed By: #### R F1 #### [place] [address] Urinalysis, reflexon 019 Reflex Comment see below Normal [facility] Comment on above: Result Comment: Refl ex to culture is not indicated based on established laboratory criteria. Performed By: #### U RIN #### [place] [address] Bacteria LM.HPF (Urine sed) [#/Area] NONE Normal None [facility] Comment on above: Performed By: #### U RIN #### [place] [address] Ep Cells Urine 0.8 /hpf Normal 0.0-5.0 [facility] Comment on above: Performed By: #### U RIN #### [place] [address] Hyaline Cast 0.7 /lpf Normal 0.0-1.0 [facility] Comment on above: Performed By: #### U RIN #### [place] [address] RBC LM.HPF (Urine sed) [#/Area] 0.6 /[HPF] Normal 0.0-5.0 [facility] Comment on above: Performed By: #### U RIN #### [place] [address] WBC, reflex 0.90 /hpf Normal 0.00-5.00 [facility] Comment on above: Performed By: #### U RIN #### [facility] [address] [place] [address] Appearance (U) CLEAR Normal [facility] Comment on above: Performed By: #### U RIN #### [facility] [address] [place] [address] Bilirubin (U) [Mass/Vol] Negative Normal Negative [facility] Comment on above: Performed By: #### U RIN #### [facility] [address] [place] [address] Color (U) YELLOW Normal [facility] Comment on above: Performed By: #### U RIN #### [facility] [address] [place] [address] Glucose Ql (U) Negative Normal Negative [facility] Comment on above: Performed By: #### U RIN #### [place] [address] Hemoglobin,Urine Negative Normal Negative [facility] Comment on above: Performed By: #### U RIN #### [facility] [address] [place] [address] Ketone Urine Negative Normal Negative [facility] Comment on above: Performed By: #### U RIN #### [facility] [address] [place] [address] Leukocyte esterase Test strip Ql (U) TRACE Abnormal Negative [facility] Comment on above: Performed By: #### U RIN #### [facility] [address] [place] [address] Nitrite reflex Negative Normal Negative [facility] Comment on above: Performed By: #### U RIN #### [facility] [address] [place] [address] pH (U) 5.0 [pH] Normal 5.0-8.0 [facility] Comment on above: Performed By: #### U RIN #### [facility] [address] [place] [address] Protein (U) [Mass/Vol] Negative Normal Negative [facility] Comment on above: Performed By: #### U RIN #### [facility] [address] [place], [place] [address] Specific Perry, Ur 1.017 Normal 1.005-1.030 [facility] Comment on above: Performed By: #### U RIN #### [facility] [address] [place], [place] [address] Urobilinogen,Ur 0.2 EU/dL Normal 0.2-1.0 [facility] Comment on above: Performed By: #### U RIN #### [facility] [address] [place], [place] [address] Urine Proteinon 04-09-2019 Protein Ql (U) < 5.0 Normal 0.0-11.9 [facility] Comment on above: Performed By: #### U P #### [facility] [address] [place], [place] [address] XR FOOT 3V AP/LAT/OBL LTon 0 04-09-2019 [...] degenerative arthritis at the first MTP joints. Line Construction Supervisor: PSCB Transcribe Date/Time: Apr 12 2019 2:06P Dictated by : YANETH PATEL MD This examination was interpreted and the report reviewed and electronically signed by: YANETH PATEL MD on Apr 12 2019 2:08PM EST Normal [facility] XR FOOT 3V AP/LAT/OBL RTon 0 04-09-2019 [...] degenerative arthritis at the first MTP joints. Line Construction Supervisor: Dyn Transcribe Date/Time: Apr 12 2019 2:06P Dictated by : YANETH PATEL MD This examination was interpreted and the report reviewed and electronically signed by: YANETH PATEL MD on Apr 12 2019 2:08PM EST Normal [facility] XR HAND 3V PA/LAT/OBL LTon 0 04-09-2019 [...] no abnormal calcifications. IMPRESSION: Within normal limits. Line [employer] Supervisor: Dyn Transcribe Date/Time: Apr 12 2019 2:04P Dictated by : YANETH PATEL MD This examination was interpreted and the report reviewed and electronically signed by: YANETH PATEL MD on Apr 12 2019 2:06PM EST Normal [facility] XR HAND 3V PA/LAT/OBL RTon 0 04-09-2019 [...] no abnormal calcifications. IMPRESSION: Within normal limits. Line [employer] Supervisor: PSCB Transcribe Date/Time: Apr 12 2019 2:04P Dictated by : YANETH PATEL MD This examination was interpreted and the report reviewed and electronically signed by: YANETH PATEL MD on Apr 12 2019 2:06PM EST Normal [facility] XR LUMBAR 2V AP/LATon 2018 XR LUMBAR [...] IMPRESSION: Scoliosis, degenerative spondylosis, and postoperative changes. Line Construction Supervisor: PSCB Transcribe Date/Time: Apr 12 2019 2:09P Dictated by : YANETH PATEL MD This examination was interpreted and the report reviewed and electronically signed by: YANETH PATEL MD on Apr 12 2019 2:11PM EST Normal [facility] XR SI JTS 2V AP PELV/FERGUSO Non [...] degenerative changes at the right sacroiliac joint. Line Construction Supervisor: JUANITA Transcribe Date/Time: Apr 12 2019 2:08P Dictated by : YANETH PATEL MD This examination was interpreted and the report reviewed and electronically signed by: YANETH PATEL MD on Apr 12 2019 2:09PM EST Normal [facility] Office Visit: Annualon 07-25 Dietary management education, guidance, and counseling (procedure) yes Invalid Interpretation Code [facility] Documentation of current medications (procedure) Done Invalid Interpretation Code [facility] Tobacco smoking status NHIS Never Invalid Interpretation Code [facility] Tobacco use CPHS Never smoker Invalid Interpretation Code [facility] Lab Report: Basic Metabolic Profile (BMP)on 12-09-2016 Anion gap 10 mmol/L Invalid Interpretation Code 5-15 [facility] BUN/Creatinine Ratio 18.5 RATIO Invalid Interpretation Code 10-20 [facility] Calcium 8.9 mg/dL Invalid Interpretation Code 8.5-10.1 [facility] Chloride 98 mmol/L Invalid Interpretation Code 98-107 [facility] CO2 32.0 mmol/L Invalid Interpretation Code 21.0-32.0 [facility] Creatinine 0.81 mg/dL Invalid Interpretation Code 0.55-1.02 [facility] eGFR (non-black) 77 mL/min/{1.73_m2} Invalid Interpretation Code >60 [facility] eGFR (non-black) 93 mL/min/{1.73_m2} Invalid Interpretation Code >60 [facility] Glucose mass conc 121 mg/dL High 70-110 [facility] Potassium molar conc 4.3 mmol/L Invalid Interpretation Code 3.5-5.1 [facility] Sodium 140 mmol/L Invalid Interpretation Code 136-145 [facility] Urea nitrogen 15 mg/dL Invalid Interpretation Code 7-18 [facility] Lab Report: Lipaseon 017 LIPASE 157 U/L Invalid Interpretation Code 73-393 [facility] Lab Report: Liver Profileon 12-09-2016 Alanine aminotransferase (ALT) 58 U/L Invalid Interpretation Code 12-78 [facility] Albumin 3.7 g/dL Invalid Interpretation Code 3.4-5.0 [facility] Alkaline phosphatase (ALP) 87 U/L Invalid Interpretation Code 45-117 [facility] Aspartate aminotransferase (AST) 37 U/L Invalid Interpretation Code 15-37 [facility] Bilirubin (direct) 0.07 mg/dL Invalid Interpretation Code 0.00-0.30 [facility] Bilirubin (total) 0.30 mg/dL Invalid Interpretation Code 0.20-1.00 [facility] Globulin 3.5 g/dL Invalid Interpretation Code 2.3-3.5 [facility] Protein 7.2 g/dL Invalid Interpretation Code 6.4-8.2 [facility] Office Visit: RUQ pain, dila mary anne CBD, no GS on U/Son 12-09-2016 Fall risk assessment No Invalid Interpretation Code [facility] Office Visit: RUQ pain, dila mary anne CBD, no GS on U/Son 08-29-2015 Breast Mammogram screening Normal Bilateral Invalid Interpretation Code [facility] General categories [Interpretation] of Cervical or vaginal smear or scraping by Cyto stain Normal Invalid Interpretation Code [facility] No Panel Informationon 03-04 [facility] Vital Signs Date Time Vital Sign Value Performing Clinician Facility 09-06-2023 13:50-0500 Body temperature 97 [degF] Renita Mijares DO Work Phone: [facility] 09-06-2023 13:50-0500 Diastolic blood pressure 62 mm[Hg] Renita Mijares DO Work Phone: [facility] 09-06-2023 13:50-0500 Heart rate 59 /min Renita Guajardoae DO Work Phone: [facility] 09-06-2023 13:50-0500 Respiratory rate 16 /min Renita Guajardoae DO Work Phone: [facility] 09-06-2023 13:50-0500 SaO2% (BldA) [Mass fraction] 94 % Renita Mijares DO Work Phone: [facility] 09-06-2023 13:50-0500 Systolic blood pressure 111 mm[Hg] Renita Guajardoae DO Work Phone: [facility] 02-24-2023 15:16-0400 Body temperature 97.7 [degF] DR PJ MAHONEY MD [facility] 02-24-2023 15:16-0400 Diastolic Blood Pressure Non-Invasive [address] PJ MAHONEY MD [facility] 02-24-2023 15:16-0400 Heart rate 66 /min DR PJ MAHONEY MD [facility] 02-24-2023 15:16-0400 Reason For Taking VItal Signs DR PJ MAHONEY MD [facility] 02-24-2023 15:16-0400 Respiratory rate 16 /min DR PJ MAHONEY MD [facility] 02-24-2023 15:16-0400 Systolic Blood Pressure Non-Invasive [address] PJ MAHONEY MD [facility] 02-24-2023 11:13-0400 Body temperature 98.42 [degF] DR PJ MAHONEY MD [facility] 02-24-2023 11:13-0400 Diastolic Blood Pressure Non-Invasive [address] PJ MAHONEY MD [facility] 02-24-2023 11:13-0400 Heart rate 71 /min DR PJ MAHONEY MD [facility] 02-24-2023 11:13-0400 Reason For Taking VItal Signs DR PJ MAHONEY MD [facility] 02-24-2023 11:13-0400 Respiratory rate 16 /min DR PJ MAHONEY MD [facility] 02-24-2023 11:13-0400 Systolic Blood Pressure Non-Invasive [address] PJ MAHONEY MD [facility] 02-24-2023 09:07-0400 Heart rate 84 /min DR PJ MAHONEY MD [facility] 02-24-2023 08:58-0400 Diastolic Blood Pressure Non-Invasive [address] PJ MAHONEY MD [facility] 02-24-2023 08:58-0400 Systolic Blood Pressure Non-Invasive [address] PJ MAHONEY MD [facility] 02-24-2023 08:12-0400 Body temperature 97.88 [degF] DR PJ MAHONEY MD [facility] 02-24-2023 08:12-0400 Heart rate 74 /min DR PJ MAHONEY MD [facility] 02-24-2023 08:12-0400 Reason For Taking VItal Signs DR PJ MAHONEY MD [facility] 02-24-2023 08:12-0400 Respiratory rate 18 /min DR PJ MAHONEY MD [facility] 02-23-2023 22:43-0400 Heart rate 60 /min DR PJ MAHONEY MD [facility] 02-23-2023 20:04-0400 Heart rate 64 /min DR PJ MAHONEY MD [facility] 02-23-2023 14:32-0400 Heart rate 82 /min DR PJ MAHONEY MD [facility] 02-23-2023 11:40-0400 Heart rate 70 /min DR PJ MAHONEY MD [facility] 02-22-2023 14:40-0400 Body height 162.[address] PJ MAHONEY MD [facility] 02-22-2023 14:40-0400 Body weight [address] PJ MAHONEY MD [facility] 02-22-2023 14:40-0400 Body weight 41.61 kg/m2 DR PJ MAHONEY MD [facility] 02-22-2023 13:15-0400 Body temperature 96.26 [degF] DR PJ MAHONEY MD [facility] 02-22-2023 12:04-0400 Body temperature 97.7 [degF] DR PJ MAHONEY MD [facility] 02-22-2023 12:00-0400 Respiratory Rate - Anes 3 br/min DR PJ MAHONEY MD [facility] 02-22-2023 11:55-0400 Respiratory Rate - Anes 26 br/min DR PJ MAHONEY MD [facility] 02-22-2023 11:50-0400 Body temperature 96.84 [degF] DR PJ MAHONEY MD [facility] 02-22-2023 11:50-0400 Respiratory Rate - Anes 23 br/min DR PJ MAHONEY MD [facility] 02-22-2023 11:45-0400 Body temperature 96.85 [degF] DR PJ MAHONEY MD [facility] 02-22-2023 11:40-0400 Body temperature 96.89 [degF] DR PJ MAHONEY MD [facility] 02-22-2023 09:31-0400 Body height 162.[address] PJ MAHONEY MD [facility] 02-22-2023 09:31-0400 Body temperature 98.42 [degF] DR PJ MAHONEY MD [facility] 02-22-2023 09:31-0400 Body weight [address] PJ MAHONYE MD [facility] 02-03-2023 13:58-04[address] Blood Pressure Cuff Size DR PJ MAHONEY MD [facility] 02-03-2023 13:58-[address] PJ MAHONEY MD [facility] 02-03-2023 13:58-[address] PJ MAHONEY MD [facility] 02-03-2023 13:58-0400 Body height 162.[address] PJ MAHONEY MD [facility] 02-03-2023 13:58-0400 Body weight [address] PJ MAHONEY MD [facility] 02-03-2023 13:58-0400 Body weight 41.61 kg/m2 DR PJ MAHONEY MD [facility] 02-03-2023 13:58-0400 Diastolic Blood Pressure Non-Invasive [address] PJ MAHONEY MD [facility] 02-03-2023 13:58-0400 Heart rate 73 /min DR PJ MAHONEY MD [facility] 02-03-2023 13:58-0400 Systolic Blood Pressure Non-Invasive [address] PJ MAHONEY MD [facility] 09-17-2022 18:10-0500 Body temperature 98 [degF] Dr. Rica Padgett Work Phone: [facility] 09-17-2022 18:10-0500 Diastolic blood pressure 65 mm[Hg] Dr. Rcia Padgett Work Phone: [facility] 09-17-2022 18:10-0500 Heart rate 75 /min Dr. Rica Padgett Work Phone: [facility] 09-17-2022 18:10-0500 Respiratory rate 16 /min Dr. Rica Padgett Work Phone: [facility] 09-17-2022 18:10-0500 SaO2% (BldA) [Mass fraction] 901 % Dr. Rica Padgett Work Phone: [facility] 09-17-2022 18:10-0500 Systolic blood pressure 119 mm[Hg] Dr. Rica Padgett Work Phone: [facility] 09-17-2022 11:45-0500 Body height 162.[address] Rica Padgett Work Phone: [facility] 09-17-2022 11:45-0500 Body weight 121.[address] Rica Padgett Work Phone: [facility] 09-16-2022 19:21-0500 Inhaled oxygen flow rate 2 L/min Dr. Rica Padgett Work Phone: [facility] 09-16-2022 19:15-0500 Body mass index (BMI) [Ratio] 46.1 kg/m2 Dr. Rica Padgett Work Phone: [facility] 09-13-2022 10:21-0500 Body mass index (BMI) [Ratio] 42.7 kg/m2 Dr. Rica Padgett Work Phone: [facility] 09-13-2022 10:21-0500 Body temperature 95.4 [degF] Dr. Rica Padgett Work Phone: [facility] 09-13-2022 10:21-0500 Body weight 116.[address] Rica Padgett Work Phone: [facility] 09-13-2022 10:21-0500 Diastolic blood pressure 80 mm[Hg] Dr. Rica Padgett Work Phone: [facility] 09-13-2022 10:21-0500 Heart rate 84 /min Dr. Rica Padgett Work Phone: [facility] 09-13-2022 10:21-0500 Respiratory rate 20 /min Dr. Rica Padgett Work Phone: [facility] 09-13-2022 10:21-0500 SaO2% (BldA) [Mass fraction] 90 % Dr. Rica Padgett Work Phone: [facility] 09-13-2022 10:21-0500 Systolic blood pressure 137 mm[Hg] Dr. Rica Padgett Work Phone: [facility] 05-19-2022 14:14-0400 Body temperature 95.3 [degF] Dr. Rica Padgett Work Phone: [facility] Work Phone: 05-19-2022 14:14-0400 Diastolic blood pressure 90 mm[Hg] Dr. Rica Padgett Work Phone: [facility] Work Phone: 05-19-2022 14:14-0400 Heart rate 81 /min Dr. Rica Padgett Work Phone: [facility] Work Phone: 05-19-2022 14:14-0400 Respiratory rate 20 /min Dr. Rica Padgett Work Phone: [facility] Work Phone: 05-19-2022 14:14-0400 SaO2% (BldA) [Mass fraction] 91 % Dr. Rica Padgett Work Phone: [facility] Work Phone: 05-19-2022 14:14-0400 Systolic blood pressure 156 mm[Hg] Dr. Rica Padgett Work Phone: [facility] Work Phone: 03-29-2022 09:18-0400 Body mass index (BMI) [Ratio] 42.9 kg/m2 Dr. Rica Padgett Work Phone: [facility] Work Phone: 03-29-2022 09:18-0400 Body temperature 96.3 [degF] Dr. Rica Padgett Work Phone: [facility] Work Phone: 03-29-2022 09:18-0400 Body weight 117.[address] Rica Padgett Work Phone: [facility] Work Phone: 03-29-2022 09:18-0400 Diastolic blood pressure 80 mm[Hg] Dr. Rica Padgett Work Phone: [facility] Work Phone: 03-29-2022 09:18-0400 Heart rate 80 /min Dr. Rica Padgett Work Phone: [facility] Work Phone: 03-29-2022 09:18-0400 Respiratory rate 20 /min Dr. iRca Padgett Work Phone: [facility] Work Phone: 03-29-2022 09:18-0400 SaO2% (BldA) [Mass fraction] 95 % Dr. Rica Padgett Work Phone: [facility] Work Phone: 03-29-2022 09:18-0400 Systolic blood pressure 162 mm[Hg] Dr. Rica Padgett Work Phone: [facility] Work Phone: 01-31-2022 03:58-0400 Diastolic blood pressure 82 mm[Hg] Dr. Rica Padgett Work Phone: [facility] Work Phone: 01-31-2022 03:58-0400 Heart rate 53 /min Dr. Rica Padgett Work Phone: [facility] Work Phone: 01-31-2022 03:58-0400 Respiratory rate 16 /min Dr. Rica Padgett Work Phone: [facility] Work Phone: 01-31-2022 03:58-0400 SaO2% (BldA) [Mass fraction] 98 % Dr. Rica Padgett Work Phone: [facility] Work Phone: 01-31-2022 03:58-0400 Systolic blood pressure 114 mm[Hg] Dr. Rica Padgett Work Phone: [facility] Work Phone: 01-30-2022 23:11-0400 Body height 162.[address] Rica Padgett Work Phone: [facility] Work Phone: 01-30-2022 23:11-0400 Body mass index (BMI) [Ratio] 42 kg/m2 Dr. Rica Padgett Work Phone: [facility] Work Phone: 01-30-2022 23:11-0400 Body temperature 97.9 [degF] Dr. Rica Padgett Work Phone: [facility] Work Phone: 01-30-2022 23:11-0400 Body weight 111.[address] Rica Padgett Work Phone: [facility] Work Phone: 01-25-2022 15:13-0400 Diastolic blood pressure 89 mm[Hg] Dr. Rica Padgett Work Phone: [facility] Work Phone: 01-25-2022 15:13-0400 Heart rate 78 /min Dr. Rica Padgett Work Phone: [facility] Work Phone: 01-25-2022 15:13-0400 Respiratory rate 18 /min Dr. Rica Padgett Work Phone: [facility] Work Phone: 01-25-2022 15:13-0400 SaO2% (BldA) [Mass fraction] 97 % Dr. Rica Padgett Work Phone: [facility] Work Phone: 01-25-2022 15:13-0400 Systolic blood pressure 143 mm[Hg] Dr. Rica Padgett Work Phone: [facility] Work Phone: 01-25-2022 12:56-0400 Body height 162.[address] Rica Padgett Work Phone: [facility] Work Phone: 01-25-2022 12:56-0400 Body mass index (BMI) [Ratio] 42.9 kg/m2 Dr. Rica Padgett Work Phone: [facility] Work Phone: 01-25-2022 12:56-0400 Body temperature 98.2 [degF] Dr. Rica Padgett Work Phone: [facility] Work Phone: 01-25-2022 12:56-0400 Body weight 113.[address] Rica Padgett Work Phone: [facility] Work Phone: 09-25-2021 14:30-0500 Body temperature 98.5 [degF] Dr. Rica Padgett Work Phone: [facility] Work Phone: 09-25-2021 14:30-0500 Diastolic blood pressure 78 mm[Hg] Dr. Rica Padgett Work Phone: [facility] Work Phone: 09-25-2021 14:30-0500 Heart rate 68 /min Dr. Rica Padgett Work Phone: [facility] Work Phone: 09-25-2021 14:30-0500 Respiratory rate 16 /min Dr. Rica Padgett Work Phone: [facility] Work Phone: 09-25-2021 14:30-0500 SaO2% (BldA) [Mass fraction] 93 % Dr. Rica Padgett Work Phone: [facility] Work Phone: 09-25-2021 14:30-0500 Systolic blood pressure 144 mm[Hg] Dr. Rica Padgett Work Phone: [facility] Work Phone: 09-25-2021 09:44-0500 Body height 162.[address] Rica Padgett Work Phone: [facility] Work Phone: 09-25-2021 09:44-0500 Body mass index (BMI) [Ratio] 42.9 kg/m2 Dr. Rica Padgett Work Phone: [facility] Work Phone: 09-25-2021 09:44-0500 Body weight 113.[address] Rica Padgett Work Phone: [facility] Work Phone: 05-22-2021 01:30-0400 Diastolic blood pressure 66 mm[Hg] Rica Padgett Other Phone: [facility] 05-22-2021 01:30-0400 Heart rate 72 /min Rica Padgett Other Phone: [facility] 05-22-2021 01:30-0400 Respiratory rate 16 /min Rica Lorin Other Phone: [facility] 05-22-2021 01:30-0400 SaO2% (BldA) [Mass fraction] 96 % Rica Lorin Other Phone: [facility] 05-22-2021 01:30-0400 Systolic blood pressure 138 mm[Hg] Rica Amishys Other Phone: [facility] 05-21-2021 22:35-0400 Body height 162.5 cm Rica Amishys Other Phone: [facility] 05-21-2021 22:35-0400 Body temperature 97.16 [degF] Rica Amishys Other Phone: [facility] 05-21-2021 22:35-0400 Body weight 109.3 kg Rica Padgett Other Phone: [facility] 02-13-2021 05:12-0400 Diastolic blood pressure 73 mm[Hg] Rica Padgett Other Phone: [facility] 02-13-2021 05:12-0400 Heart rate 55 /min Rica Padgett Other Phone: [facility] 02-13-2021 05:12-0400 Respiratory rate 18 /min Rica Padgett Other Phone: [facility] 02-13-2021 05:12-0400 SaO2% (BldA) [Mass fraction] 92 % Rica Padgett Other Phone: [facility] 02-13-2021 05:12-0400 Systolic blood pressure 143 mm[Hg] Rica Padgett Other Phone: [facility] 02-13-2021 02:01-0400 Body temperature 97.16 [degF] Rica Padgett Other Phone: [facility] 07-25-2017 14:03-0500 BMI (Body Mass Index) 39.79 kg/m2 Azra Gee NP [facility] 07-25-2017 14:03-0500 BP Diastolic 78 mm[Hg] Azra Gee NP [facility] 07-25-2017 14:03-0500 BP Systolic 128 mm[Hg] Azra Gee NP [facility] 07-25-2017 14:03-0500 Height 161.93 cm Azra Gee NP [facility] 07-25-2017 14:03-0500 Weight 104.33 kg Azra Gee NP [facility] 12-09-2016 11:09-0400 Body Temperature 98 [degF] Azra Gee NP [facility] 12-09-2016 11:09-0400 BSA (Body Surface Area) 2.11 m2 Azra Gee NP [facility] 12-09-2016 11:09-0400 Pulse (Heart Rate) 86 /min Azra Gee NP [facility] 12-09-2016 11:09-0400 Respiratory Rate 18 /min Azra Gee NP [facility] Encounters Encounter Date Encounter Type Care Provider Facility Start: 05-14-2025 ambulatory Rica Malys Facility:[facility] Start: 05-09-2025 ambulatory Rica Malys Facility:[facility] Start: 04-22-2025 End: 04-22-2025 ambulatory Rica Malys Facility:[facility] Start: 04-03-2025 End: 04-03-2025 ambulatory Rica Malys Facility:[facility] Start: 03-28-2025 End: 03-28-2025 Emergency department patient visit Rica Malys Facility:[facility] Start: 03-28-2025 ambulatory Rica Malys Facility:[facility] Start: 03-25-2025 ambulatory Rica Malys Facility:[facility] Start: 03-25-2025 ambulatory Rica Malys Facility:[facility] Start: 03-25-2025 End: 03-26-2025 Evaluation and management of inpatient Rica Malys Facility:[facility] Start: 03-21-2025 End: 03-21-2025 ambulatory Rica Malys Facility:[facility] Start: 03-15-2025 ambulatory Morgan de Sundeep Facili ty:[facility] Start: 03-15-2025 End: 03-18-2025 Evaluation and management of inpatient Rica Malys Facility:[facility] Start: 03-11-2025 End: 03-11-2025 ambulatory Rica Malys Facility:[facility] Start: 02-18-2025 ambulatory Rica Malys Facility:[facility] Start: 02-09-2025 End: 02-09-2025 ambulatory Rica Malys Facility:[facility] Start: 02-04-2025 End: 02-04-2025 ambulatory Rica Malys Facility:[facility] Start: 01-07-2025 End: 01-07-2025 ambulatory Rica Malys Facility:[facility] Start: 01-03-2025 End: 01-03-2025 ambulatory Irca Malys Facility:[facility] Start: 11-29-2024 ambulatory Rica Malys Facility:[facility] Start: 11-29-2024 End: 11-29-2024 ambulatory Rica Malys Facility:[facility] Start: 11-20-2024 End: 11-20-2024 Emergency department patient visit Rica Malys Facility:[facility] Start: 11-19-2024 End: 11-19-2024 ambulatory Rica Malys Facility:[facility] Start: 10-15-2024 End: 10-15-2024 Emergency department patient visit Rica Malys Facility:[facility] Start: 10-12-2024 End: 10-12-2024 Emergency department patient visit Rica Malys Facility:[facility] Start: 10-08-2024 End: 10-08-2024 ambulatory Rica Malys Facility:[facility] Start: 09-03-2024 End: 09-03-2024 ambulatory Rica Malys Facility:[facility] Start: 07-27-2024 End: 07-28-2024 ambulatory Rica Malys Facility:[facility] Start: 07-13-2024 End: 07-13-2024 ambulatory Rica Malys Facility:[facility] Start: 06-06-2024 End: 06-06-2024 ambulatory Rica Malys Facility:[facility] Start: 06-01-2024 End: 06-01-2024 ambulatory Rica Malys Facility:[facility] Start: 05-14-2024 ambulatory Rica Malys Facility:[facility] Start: 11-03-2023 Telephone encounter Yovanny Rogers i, MD Work Phone: [facility] Comment on above: Referral (Confirm re ceipt of referral faxed 11/01/23) Start: 09-06-2023 End: 09-07-2023 ambulatory RENITA MIJARES [facility] Start: 09-06-2023 End: 09-06-2023 Subsequent hospital visit by physician Renita Mijares DO Work Phone: [facility] Comment on above: Diarrhea, unspecifie d [...] [facility] Start: 10-06-20[address]-Myke Anderson DO Work Phone: [facility] Comment on above: Page Out Start: 09-27-2022 Orders Only Nicolás Swenson Work Phone: Orthopaedics Comment on above: 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 Rica Padgett Work Phone: [facility] Work Phone: Start: 09-20-2022 End: 09-20-[address] Rica Padgett Work Phone: [facility] Start: 09-17-2022 Non-patient / Non-visit Dr. Angela Padgett Work Phone: [facility] Start: 09-17-2022 Non-patient / Non-visit Dr. Angela Padgett Work Phone: [facility] Start: 09-16-2022 Non-patient / Non-visit Dr. Angela Padgett Work Phone: [facility] Start: 09-16-2022 End: 09-17-2022 Evaluation and management of inpatient Dr. Rica Padgett Work Phone: [facility] 3 Start: 09-15-2022 End: 09-15-[address] Rica Padgett Work Phone: [facility] Work Phone: Start: 09-15-2022 End: 09-15-[address] Rica Padgett Work Phone: [facility] Start: 09-13-2022 End: 09-13-[address] Rica Padgett Work Phone: [facility] Start: 07-07-2022 End: 07-07-[address] Rica Padgett Work Phone: [facility] Work Phone: Start: 07-07-2022 End: 07-07-[address] Rica Padgett Work Phone: [facility]Laboratory Start: 06-23-2022 Telephone encounter Nicolás velazquez MD Work Phone: Orthopaedics Comment on above: Question Start: 05-19-2022 End: 05-19-[address] Rica Padgett Work Phone: [facility] Endocrinology Start: 05-19-2022 End: 05-19-2022 ambulatory NICOLÁS AGGARWAL Facility:[facility] Start: 05-19-2022 End: 05-19-2022 Patient encounter procedure Nicolás Aggarwal MD Work Phone: Orthopaedics Comment on above: Pes planus of left f oot (Primary Dx); Primary osteoarthritis of left foot; Diabetic neuropathy, painful (HCC); Acquired valgus deformity of left ankle Start: 05-19-2022 End: 05-19-2022 Subsequent hospital visit by physician Mehdi Valverde [facility] Rej Work Phone: Radiology Comment on above: Pain [R52] Start: 03-29-2022 End: 03-29-[address] Rica Padgett Work Phone: [facility]ocr[facility]ology Start: 01-30-2022 End: 01-31-2022 Emergency department patient visit Dr. Rica Padgett Work Phone: [facility]-Emergency Department Start: 01-25-2022 End: 01-25-2022 Emergency department patient visit Dr. Rica [facility] Start: 11-12-2021 End: 11-12-[address] Rica Padgett [facility] Phone[facility] Start: 11-11-2021 End: 11-11-[address] Rica Padgett Work Phone: [facility] Start: 11-10-2021 End: 11-10-[address] Rica Padgett Work Phone: [facility]-Pre-Admission Testing Start: 11-10-2021 Non-patient / Non-visit Dr. Angela Padgett Work Phone: [facility] Start: 09-25-2021 End: 09-25-2021 Admission to same day surgery center Dr. Rica Padgett Work Phone: [facility]-Surgical Day Care Start: 08-07-[address] Rica Padgett Work Phone: [facility] Start: 05-21-2021 End: 05-22-2021 Emergency department patient visit Silvana Henderson [facility] Emergency 11 Start: 02-13-2021 End: 02-13-2021 Emergency department patient visit Jesus Amezquita [facility] Emergency 11 Start: 02-08-2020 End: 02-08-2020 Patient encounter procedure PB DRUMMOND [facility] Start: 02-07-2015 End: 02-07-2015 Telephone encounter Azra Gee Work Phone: OB/Gynecology Comment on above: Yearly Exam With [facility] mogram Procedures Date Procedure Procedure Detail Performing Clinician Start: 09-06-2023 DISCHARGE PATIENT RENITA MIJARES Start: 09-06-2023 PLACE IN OUTPATIENT/HOSPITAL AMBULATORY SURGERY RENITA MIJARES Start: 09-06-2023 PULSE OXIMETRY, SPOT DA LE BETSY Start: 09-06-2023 Colon ca scrn not hi rsk ind Renita Mijares DO Work Phone: Start: 09-06-2023 PULSE OXIMETRY, SPOT Da le R Thomsanam DO Work Phone: Start: 09-06-2023 Colonoscopy Renita Yanes e DO Work Phone: Start: 02-22-[address] PJ MAHONEY MD Comment on above: ROBOTIC ASSISTED RIG HT TOTAL KNEE Start: 10-01-2022 Lipid 1996 panel - S alanna or Plasma Tre Joleonila DO Work Phone: Start: 10-01-2022 Thyrotropin [Units/v olume] in Serum or Plasma Tre Jopperi DO Work Phone: Start: 09-16-2022 CT angiography [...] Padgett Work Phone: Start: 05-22-2019 Colonoscopy Tre Yoonkassandragreta figueroa DO Work Phone: Start: 07-25-2017 End: 07-25-2017 Pelvic & Breast Exam (Medicare) Azra Gee STRUCTURAL TECHNICIAN Work Phone: Start: 12-09-2016 End: 12-09-2016 *BMP [...] malign ant neoplasm of colon [facility] Start: 05-22-2029 Screening for malign ant neoplasm of colon [facility] Start: 10-05-2025 Diabetes mellitus screening Diabetes Screening [facility] Start: 10-05-2023 Hemoglobin A1c measurement Diabetes: Hemoglobin A1C [facility] Start: 10-01-2023 Lipid panel [facility] Start: 10-01-2023 Thyroid stimulating hormone measurement TSH Level [facility] Start: 08-29-2023 Medicare Advantage A nnual Wellness Visit Medicare Advantage Annual Wellness Visit [facility] Start: 08-05-2023 COVID-19 Vaccine (4 - Pfizer series) COVID-19 Vaccine (4 - Pfizer series) [facility] Start: 2023 Advance Directive Discussion Advance Directive Discussion [facility] Start: 2023 Bone Density Screening Bone Density Screening [facility] Start: 2023 Pneumococcal Vaccine : 65+ Years (2 of 2 - PCV) Pneumococcal Vaccine: 65+ Years (2 of 2 - PCV) [facility] Start: 04-29-2023 COVID-19 Vaccine ( season) COVID-19 Vaccine ( season) [facility] Start: 04-29-2023 Influenza vaccination Influenza Vacc ine (#1) [facility] Start: 04-01-2023 Depresssion Monitoring Depresssion M onitoring [facility] Start: 01-02-2023 Hemoglobin A1c measurement Diabetes: Hemoglobin A1C [facility] Start: 09-17-2022 Patient discharge [facility] Start: 09-16-2022 Ambulation without limitation [facility] Start: 09-16-2022 Assessment of risk o f venous thromboembolism [facility] Start: 09-16-2022 Care regimes management [facility] Start: 09-16-2022 Catheterization of vein [facility] Start: 09-16-2022 Continuous positive airway pressure ventilation treatment [facility] Start: 09-16-2022 Insertion of cathete r into peripheral vein [facility] Start: 09-16-2022 Notification of physician [facility] Start: 09-16-2022 Oxygen therapy [facility] Start: 09-16-2022 Providing care accor ding to standard [facility] Start: 09-16-2022 [facility] Start: 09-16-2022 Admission procedure [facility] Start: 09-16-2022 Following clinical pathway protocol [facility] Start: 09-16-2022 Patient referral to dietitian [facility] Start: 08-29-2022 [address] [facility] Start: 04-29-2022 Influenza vaccination INFLUENZA (#1) [facility] Start: 04-09-2022 DIABETES SCREEN DIABETES SCREEN [facility] Start: 09-25-2021 Anesthesia lumbar re gion nos ANESTH SPINE CORD SURGERY [facility] Work Phone: Start: 09-25-2021 Impltj/rplcmt ithcl/ edrl drug nfs prgrbl pump IMPLANT SPINE INFUSION PUMP [facility] Work Phone: Start: 08-29-2021 DEPRESSION [address]ESS[address] [facility] Start: 04-29-2021 Influenza vaccination INFLUENZ A (Season Ended) [facility] Start: 04-09-2020 Hepatitis B screening URINE ALBUMIN:CREATININE RATIO [facility] Start: 2018 Hepatitis B Vaccine (1 of 3 - Risk 3-dose series) Hepatitis B Vaccine (1 of 3 - Risk 3-dose series) [facility] Start: 2018 RSV Immunization age d 60 or older (1 - 1-dose 60+ series) RSV Immunization aged 60 or older (1 - 1-dose 60+ series) [facility] Start: 07-25-2017 End: 07-25-2017 Appointment Appointment [facility] Start: 03-22-2017 Mammography [facility] Start: 12-09-2016 End: 12-09-2016 *BMP *BMP [facility] Start: 12-09-2016 End: 12-10-2016 *Hepatic Function Panel *Hepatic Function Panel [facility] Start: 12-09-2016 End: 12-09-2016 Ct abdomen & pelvis w/contrast material CT Abdomen/pelvis; with contrast [facility] Start: 12-09-2016 End: 12-10-2016 Follow Up after Imaging/labs Follow Up after Imaging/labs [facility] Start: 12-09-2016 End: 12-09-2016 Lipase *Lipase [facility] Start: 12-08-2015 End: 12-08-2015 *CBC with Differential *CBC with Differential [facility] Start: 12-08-2015 End: 12-08-2015 *CMP Complete Metabolic Panel *CMP Complete Metabolic Panel [facility] Start: 12-08-2015 End: 12-08-2015 *PROTS Protein S Defic. Profile [id number] *PROTS Protein S Defic. Profile [id number] [facility] Start: 12-08-2015 End: 12-08-2015 *UA - Urinalysis w/o Micro *UA - Urinalysis w/o Micro [facility] Start: 12-08-2015 End: 12-08-2015 Antithrombin actual/normal in Platelet poor plasma by Chromogenic method *AT3 - Antithrombin 3 Activity [id number] [facility] Start: 12-08-2015 End: 12-08-2015 Cardiolipin Antibodies (IgA IgG IgM) Cardiolipin Antibodies (IgA IgG IgM) [facility] Start: 12-08-2015 End: 12-08-2015 Clotting inhibitors protein c activity Protein C Activity [facility] Start: 12-08-2015 End: 12-08-2015 Ct thorax w/contrast material CT Chest with Contrast [facility] Start: 12-08-2015 End: 12-08-2015 Factor V (Leiden) Mutation Analysis Factor V (Leiden) Mutation Analysis [facility] Start: 12-08-2015 End: 12-08-2015 Lipid panel [AGGREGATE] *Lipid Profile [facility] Start: 12-08-2015 End: 12-08-2015 Thyroid stimulating hormone (TSH) *TSH [facility] Start: 12-08-2015 End: 12-08-2015 Urine, microalbumin *Urine, Microalbumin [facility] Start: 07-29-2015 LIPID SCREEN LIPID SCREEN [facility] Start: 02-26-2014 Screening for malign ant neoplasm of colon SIGMOIDOSCOPY [facility] Start: 02-26-2014 SIGMOIDOSCOPY SIGMOIDOSCOPY [facility] Start: 03-19-2013 Colonoscopy COLONOSCOPY [facility] Start: 03-19-2013 COLORECTAL CANCER SCREENING COLORECTAL CANCER SCREENING [facility] Start: 03-19-2013 Screening for malign ant neoplasm of colon [facility] Start: 07-03-2011 Hemoglobin A1c/Hemoglobin.total in Blood HBA1C [facility] Start: 2008 Screening for malign ant neoplasm of colon [facility] Start: 2008 SHINGRIX VACCINE (1 of 2) ROMAN GRIX VACCINE (1 of 2) [facility] Start: 2003 COLOGUARD (FIT-DNA) COLOGUARD (FIT-D NA) [facility] Start: [address] COLONOGRAPHY [facility] Start: 2003 FECAL OCCULT BLOOD FECAL OCCULT BLOO D [facility] Start: 1998 Screening for malign ant neoplasm of breast Mammogram [facility] Start: 1988 Screening for malign ant neoplasm of cervix [facility] Start: 1980 DTaP/Tdap/Td Vaccine s (1 - Tdap) DTaP/Tdap/Td Vaccines (1 - Tdap) [facility] Start: 1979 Screening for malign ant neoplasm of cervix [facility] Start: 1977 DTaP/Tdap/Td Vaccine s (1 - Tdap) DTaP/Tdap/Td Vaccines (1 - Tdap) [facility] Start: 1977 Urine microalbumin profile [facility] Start: 1977 Urine screening for protein Diabetes: Urine Protein Screening [facility] Start: 1976 ANNUAL PCP TEAM PHOTO JOURNALIST DYLAN DISEASE VISIT ANNUAL PCP TEAM CHRONIC DISEASE VISIT [facility] Start: 1976 Hepatitis B surface antibody level LDL CHOLESTEROL [facility] Start: 1976 HEPATITIS C SCREENING HEPATITIS C [facility] Start: 1976 Hepatitis C screening Hepatitis C [facility] Start: 1976 HIV SCREENING HIV SCREENING [facility] Start: 1970 Adult depression screening assessment DEPRESSION SCREENING [facility] Start: 1968 3 comp foot exam completed DIABETIC FOOT EXAM [facility] Start: 1968 Diabetic foot examination Diabetes: Foot Exam [facility] Start: 1968 Glaucoma screening Diabetes: R etinopathy Screening [facility] Start: 1968 Hepatitis B screening Urine Albumin:Creatinine Ratio [facility] Start: 1968 Hepatitis C antibody , confirmatory test DILATED RETINAL EXAM [facility] Start: 1968 Preventive dental service Diabetes: Dental Exam [facility] Start: 1964 PNEUMOCOCCAL (1 - PCV) PNEUMOCOCCAL (1 - PCV) [facility] Start: 1964 Pneumococcal Vaccine : 65+ (1 - PCV) Pneumococcal Vaccine: 65+ (1 - PCV) [facility] Start: 1959 MMR Vaccines (1 of 1 - Standard series) MMR Vaccines (1 of 1 - Standard series) [facility] Start: 1958 COVID-19 VACCINE (#1) COVID-19 VACCI NE (#1) [facility] Start: 1958 Annual wellness visit Medicare Initial Physical (IPPE) [facility] Start: 1958 Hepatitis B Vaccines (1 of 3 - 3-dose series) Hepatitis B Vaccines (1 of 3 - 3-dose series) [facility] Start: 1958 HIV screening HIV Screening [facility] Start: 1958 Lipid panel Lipid Panel [facility] Start: 1958 Screening for malign ant neoplasm of colon [facility] Start: 1958 Screening for osteoporosis Bone Density Scan [facility] Start: 1958 Thyroid stimulating hormone measurement TSH Level [facility] End: 09-06-2023 Moderate Sedation Moderate Sedation Procedures Routine Once for 1 Occurrences starting 09/06/2023 until 09/06/2023 [facility] Service Area Work Phone: Comment on above: Once for 1 Occurrenc es starting 09/06/2023 until 09/06/2023 Patient Education [facility] Patient referral [facility] Work Phone: End: 10-27-2023 XR ANKLE GENERAL 3V AP/LAT/OBL LEFT XR ANKLE GENERAL 3V AP/LAT/OBL LEFT Radiology Routine Acquired valgus deformity of left ankle 1 Occurrences starting 09/28/2022 until 10/27/2023 [facility] Work Phone: Comment on above: 1 Occurrences starti ng 09/28/2022 until 10/27/2023 [facility] Immunizations Immunization Date Immunization Notes Care Provider Mikayla [facility] 06-16-2022 influenza virus vaccine, unspecified formulation Yovanny Landis MD Work Phone: [facility] 06-25-2018 influenza virus vaccine, unspecified formulation Xr Rej Work Phone: [facility] 05-29-2015 influenza, seasonal, injectable Dr. Rica Padgett Work Phone: [facility] 06-29-[address] Rica Padgett Work Phone: [facility] 07-26-2012 influenza virus vaccine, unspecified formulation Azra Gee Work Phone: [facility] 05-13-[address] Danya Padgett Work Phone: [facility] Work Phone: 05-13-2012 pneumococcal vaccine , unspecified formulation Dr. Rica Padgett Work Phone: [facility] NEGATED: Highlighted row has not occurred!10-03-2022 Influenza, injectable, Madin Macrina Canine Kidney, preservative free, quadrivalent Tre Anderson DO Work Phone: [facility] Comment on above: Deferred: Patient Re fused Payers Date Payer Category [facility]ayer [facility] ( and others) [id number] 2024 Self-pay [id number] 2022 [employer] ( and others) [id number] 2022 [employer] ( and others) [id number] 2022 Private Health Insurance [id number] 2022 Medicare [id number] 2017 Unknown [id number] 2013 [employer] ( and others) [id number] 2013 Unknown FOR LIFE [id number] 2013-Present Indemnity [id number] 2007 Medicare MEDICARE MEDICAR E B [id number] 2007-2016 [place] [id number] 2007 Medicare [id number] 2004 Medicare [id number] 2004 Medicare MEDICARE MEDICAR E A AND B [id number] 2004-Present [place] Medicare [id number] .[id number] 2004 Unknown 1958 Unknown [id number] 2.16.840.1.045233.3.579.2 .651 1958 Unknown [id number] 2.16.840.1.856648.3.579.2 .627 1958 Unknown [id number] 2.16.840.1.006416.3.579.2 .627 1958 Unknown [id number] 2.16.840.1.094377.3.579.2 .627 1958 Unknown [id number] 2.16.840.1.404592.3.579.2 .1243 Unknown [id number] 2.16.840.1.960265.3.579.2 .462 Unknown [id number] 2.16.840.1.616537.3.579.2 .462 Unknown [id number] 2.16.840.1.275323.3.579.2 .462 Unknown [id number] 2.16.840.1.700783.3.579.2 .462 Unknown [id number] 2.16.840.1.571431.3.579.2 .462 Unknown [id number] 2.16840.1.970986.3.579.2 .462 Unknown [id number] 2.16.840.1.582068.3.579.2 .462 Unknown [id number] 2.16.840.1.788015.3.579.2 .462 Unknown [id number] 2.16.840.1.291978.3.579.2 .462 Unknown [id number] 2.16.840.1.223465.3.579.2 .462 Unknown [id number] 2.16.840.1.597779.3.579.2 .462 Unknown [id number] 2.16.840.1.588479.3.579.2 .462 Unknown [id number] 2.16.840.1.142741.3.579.2 .462 Unknown [id number] 2.16.840.1.162671.3.579.2 .462 Unknown [id number] 2.16.840.1.832644.3.579.2 .462 Unknown [id number] 2.16.840.1.087283.3.579.2 .462 Unknown [id number] 2.16.840.1.079274.3.579.2 .462 Unknown [id number] 2.16.840.1.240818.3.579.2 .462 Unknown [id number] 2.16.840.1.326301.3.579.2 .462 Unknown [id number] 2.16.840.1.117995.3.579.2 .462 Unknown [id number] 2.16.840.1.330886.3.579.2 .462 Unknown [id number] 2.16.840.1.412520.3.579.2 .462 Unknown [id number] 2..840.1.980669.3.579.2 .462 Unknown [id number] 2.16.840.1.219408.3.579.2 .462 Unknown [id number] 2.16.840.1.056947.3.579.2 .462 Unknown [id number] 2.16.840.1.443764.3.579.2 .462 Unknown [id number] 2.16.840.1.053195.3.579.2 .462 Unknown [id number] 2.16.840.1.949092.3.579.2 .462 Unknown [id number] 2.16840.1.612426.3.579.2 .462 Unknown [id number] 2.16.840.1.796514.3.579.2 .462 Unknown [id number] 2.16.840.1.919518.3.579.2 .462 Unknown [id number] 2.16.840.1.513737.3.579.2 .462 Unknown [id number] 2.16.840.1.663993.3.579.2 .462 Unknown [id number] 2.16.840.1.452523.3.579.2 .462 Unknown [id number] 2.16.840.1.159780.3.579.2 .462 Unknown [id number] 2.16.840.1.274659.3.579.2 .462 Unknown [id number] 2.16.840.1.705074.3.579.2 .462 Social History Date Type Detail Facility Start: 03-06-2011 End: 09-21-2012 Tobacco smoking status HIIS Former smoker [facility] Work Phone: Comment on above: quit in 1993 End: 03-21-1994 History of tobacco use Current smoker [facility] Start: 09-21-2012 End: 09-06-2023 Tobacco use and exposure Never used [facility] Start: 09-21-2012 Alcohol intake Current non-dr edge inker uppers of alcohol (finding) [facility] Start: 1960 Sex Assigned At Not on file [facility] Start: 11-10-2021 End: 09-16-2022 Tobacco smoking consumption unknown [facility] Start: 08-11-2019 Rare [facility] Start: 08-11-2019 None [facility] Start: 12-08-2020 Spouse/ Signif icant Other [facility] Start: 05-18-2019 Non-smoker [facility] Start: 1960 Sex Assigned At Female [facility] End: 03-21-1994 History of tobacco use Cigarette Smoker [facility] Work Phone: Start: 04-13-2022 Alcohol intake Current drinke r of alcohol (finding) [facility] Start: 04-09-2019 History SDOH Alcohol Comment rarely [facility] Start: 05-09-2022 End: 09-06-2023 Exposure to SARS-CoV-2 (event) Not sure [facility] Start: 02-03-2023 End: 09-06-2023 Tobacco smoking status Never smoked tobacco (finding) [facility] Sex Assigned At Sex [facility] Start: 04-13-2022 End: 10-02-2022 History of Social function [facility] Start: 04-13-2022 End: 10-02-2022 Tobacco use panel [facility] National Score (1-10 0), lower number is lower risk Not on file [facility] Start: 09-06-2023 Alcohol intake Lifetime non-d sue (finding) [facility] Work Phone: Within the last year , have you been afraid of your partner or ex-partner? No [facility] How often to you hav e a drink containing alcohol? Monthly or less [facility] How many standard drinks containing alcohol do you have on a typical day? [address] [facility] How often do you hav e 6 or more drinks on 1 occasion? Never [facility] Start: 10-04-2022 Sexual orientation Heterosexual (romel salcido) [facility] Start: 10-02-2022 History SDOH Alcohol Frequency 2 [facility] Start: 10-02-2022 History SDOH Alcohol Std Drinks 1 [facility] Medical Equipment Procedure Code Equipment Code [...] Facility 02-24-2023 Functional Status Room check performed [facility] 02-24-[address] [facility] 02-[facility]23 Functional Status Independent [facility] 02-24-2023 Functional Status Min A [facility] 02-24-2023 Functional Status Demonstrates C orrect Call Light Use Yes [facility] 02-23-2023 Functional Status Elsy [facility] 02-23-2023 Functional Status Dinner Percent 25 [facility] 02-23-2023 Functional Status Elsy [facility] 02-23-2023 Functional Status 60 [facility]sy [facility] 02-23-2023 Functional Status 2 [facility]sy [facility] 02-23-2023 Functional Status Single level home [facility] 02-23-2023 Functional Status [facility]sy [facility] 02-22-2023 Functional Status Elsy [facility] 02-22-2023 Functional Status Elsy [facility] 02-22-2023 Functional Status Cane, Walker [facility] 02-22-2023 Functional Status ice on, tension pillow in place [facility] 02-22-2023 Functional Status NPO Status Maintained [facility] 02-03-2023 Functional Status Sensory Deficits None [facility] 09-17-2022 Functional status Ambulates [facility] Work Phone: Mental Status Date Assessment Result Facility 02-24-2023 Mental Status Orientation Asse ssment Oriented x 4 [facility] 02-24-2023 Mental Status [facility] 02-24-2023 Mental Status Oriented x 4 [facility] 02-23-2023 Mental Status [facility] 02-23-2023 Mental Status [facility] 09-16-2022 Cognitive function Voice/Name [facility] Work Phone: 01-30-2022 Cognitive function Level Of Cons ciousness Awake;Alert;Appropriate;Follow s Commands [facility] Work Phone: 09-25-2021 Cognitive function Level Of Cons ciousness Appropriate;Drowsy [facility] Work Phone: 09-25-2021 Cognitive function Voice/Name [facility] Work Phone: Clinical Notes 02-07-2015 to 03-26-2025 Telephone Encounter - Kitty Greco - 11/07/2023 10:14 AM EDTTelephone Encounter - Kitty Greco - 11/07/2023 10:14 AM EDTTelephone Encounter - Maria Teresa Bacon - 11/03/2023 9:43 AM EST Note Date & Type Note Facility 03-26-2025 Note [facility] [facility] 03-18-2025 Note [facility] 07-28-2024 Note [facility] 11-07-2023 Note Spoke to patient and advised her that we have not received her referral and requested her to have her pcp refax the referral to us. Patient verbalized understanding. [facility] 11-07-2023 Telephone encounter Note Spoke to patient and advised her that we have not received her referral and requested her to have her pcp refax the referral to us. Patient verbalized understanding. [facility] 11-07-2023 Miscellaneous Notes Spoke to patient and advised her that we have not received her referral and requested her to have her pcp refax the referral to us. Patient verbalized understanding. Name of caller: Flex Contact phone number: [phone] Relationship to Patient: patient Provider: Dr. Landis [...] their call: No documented in this encounter [facility] 11-03-2023 Telephone encounter Note Name of caller: Flex Contact phone number: [phone] Relationship to Patient: patient Provider: Dr. Landis [...] business hours to return their call: No [facility] 09-06-2023 Hospital Discharg e instructions Mariia [...] having your procedure, call the [facility] to be advised whether a visit to [...] Libertarian Signature Date documented in this encounter [facility] Work Phone: 09-06-2023 History and physical note [...] care of this patient. Renita Mijares DO [facility] Work Phone: 09-06-2023 History and [...] Renita Mijares DO documented in this encounter [facility] Work Phone: 09-06-2023 Miscellaneous Notes Patient: Flex Wooten Pre-sedation Evaluation: Sedation necessary for: Analgesia Requesting service: Endoscopy History of Present Illness: Colonoscopy Past Medical History: Diagnosis Date Anxiety Chronic pain Depression Diabetes mellitus ([facility]/HCC) Disease of thyroid gland Sleep apnea Principle problems: There are no problems to display for this patient. 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: (Not in a hospital admission) Current [...] Ringer's infusion 20 mL/hr intravenous Continuous Renita R Thomae, DO Past Surgical History: has a past [...] - normal exam Plan ASA 2 Moderate [facility] Work Phone: 09-06-2023 Note Formatting of this [...] Allergies Allergen Reactions Effexor [Venlafaxine] 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 Form: 338A (81774) R: 01/02 Follow Up Care 08/11/2022 13:44:36 With:MATTHEW HERNÁNDEZ PA-C, Orthopedic Address: [facility] [address] [place] [id number] When:03/07/2023 10:15:00 [facility] 02-24-2023 Note Discharge Instructions Thank you for allowing [facility] to assist you with your healthcare needs. The following is important discharge information regarding your hospital visit. Your Care Team [facility] Inpatient Care Team Your Diagnosis Osteoarthritis Diabetes HTN (hypertension) Sleep apnea Status post total right knee replacement What to do next Follow Up Appointments Follow Up with MATTHEW HERNÁNDEZ PA-C, Orthopedic When 03/07/2023 10:15 AM EDT Where: [facility] [address] [place] [address] [id number] The Following Activity and Diet Have Been [...] FOR SIGNS OF INFECTION: call the office ([phone]) if experencing any of the following: (Usually [...] on your follow up instructions. Form: 338A (52352) R: 01/02 Additional Information VACCINATE! IT SAVES LIVES! Members of the community who have not yet received the COVID-19 vaccine and would like to receive it can visit one of [facility] vaccine clinics. There are many vaccine clinic locations within the [facility]. For locations and available times, please visit [email or web address].o hio.gov/. It is important to note that some COVID mobile vaccine clinics are held outdoors and may be canceled in rainy or stormy conditions. To learn more about pediatric vaccinations (ages 5-11), we invite you to visit the [facility] webpage. https://www.[facility].org/p ages/0929-Lrkbn-Edelapaoskv-Freq ijbisv-Mrtwd-Pgsyuvcne.html To learn more about the COVID-19 vaccine, we invite you to visit the CDC website for a list of frequently asked questions.https://www.cdc.gov/co ronavirus/2019-ncov/vaccines/faq .html [facility] Patient Portal Access Instructions: Stay connected with your healthcare team and access your personal medical information anytime with the [facility] Patient Portal. Please follow the directions below to create your [facility] account: 1.Access the email account you provided upon registration to the hospital/physician office.2.Look for an invitation email from [facility].3.Open the email and access the invitation link: Accept Invitation to [facility].4.Fill in the required morocho to create your account. To access your account, visit [email or web address]. Click the blue button labeled Access Patient [...] you will allow to register on the [facility] Patient Portal for access to your information. You can also access the [facility] Patient Portal on the [facility] otoniel. Simply click on Patient Portal and then log into your account. If you would like to receive a full copy of your medical records, please contact the [facility] Medical Records Department by calling [phone], Tuesday through Tuesday between 8 a.m. and [...] Call your local pharmacy or go to http://[employer]Vaccsys/[email or web address] to find one close to you.3.Make use of household items: Use cat litter or old coffee grounds to dispose medications if other options are not available. Mix your drugs with these household products, seal them in an airtight container and throw it into the garbage. 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 I have received a written copy of the plan/instructions. If I have questions, I am aware that I should contact my doctor. Patient/Engineer Systems Signature: Date/Time: Relationship to Patient: Witness Name/Signature: Date/Time: [facility] 02-24-2023 Note Discharge Instructions Thank you for allowing [facility] to assist you with your healthcare needs. The following is important discharge information regarding your hospital visit. Your Care Team [facility] In[facility] Care Team Your Diagnosis Osteoarthritis Diabetes HTN (hypertension) Sleep apnea Status post total right knee replacement What to do next Follow Up Appointments Follow Up with MATTHEW HERNÁNDEZ PA-C, Orthopedic When 03/07/2023 10:15 AM EDT Where: [facility] [address] [place] [address] [id number] The Following Activity and Diet Have Been [...] mouth Three (3) times a day 02/24 09:07 Unchanged dulaglutide (Trulicity Pen 1.5 mg/ [...] The extended-release form of oxycodone is for wzbvgc-lry-xdlyb treatment of pain and should not be [...] against the law. Stop taking all other tyqiku-nkj-prfrc opioid pain medicines when you start taking [...] may report side effects to FDA at 8-130-MUJ-9645. What other drugs will affect oxycodone? You [...] may affect oxycodone. This includes prescription and pjqh-pbp-mtubjad medicines, vitamins, and herbal products. Not all [...] to ensure that the information provided by [employer]') is accurate, up-to-date, and complete, but no guarantee is made to that effect. Drug information contained herein may be time sensitive. [employer] information has been compiled for use by healthcare practitioners and consumers in the [place] and therefore [employer] does not warrant that uses outside of the [place] are appropriate, unless specifically indicated otherwise. [employer] drug information does not endorse drugs, diagnose patients or recommend therapy. [employer] drug information is an informational resource designed [...] effective or appropriate for any given patient. [employer] does not assume any responsibility for any aspect of healthcare administered with the aid of information [employer] provides. The information contained herein is not intended to cover all possible uses, directions, precautions, warnings, drug interactions, allergic reactions, or adverse effects. If you have questions about the drugs you are taking, check with your doctor, nurse or pharmacist. Copyright 9065-1081 [employer]. Version: 14.02. Revision Date: 09/25/2020. Education Materials [facility] Post-operative Instructions PLEASE FOLLOW [facility] POST-OP INSTRUCTIONS GIVEN WATCH FOR SIGNS OF INFECTION: call the office ([phone]) if experencing any of the following: (Usually [...] on your follow up instructions. Form: 338A (27198) R: 01/02 Additional Information VACCINATE! IT SAVES LIVES! Members of the community who have not yet received the COVID-19 vaccine and would like to receive it can visit one of [facility] vaccine clinics. There are many vaccine clinic locations within the [facility]. For locations and available times, please visit https://gettheshot.coronavirus.o vao.gov/. It is important to note that some COVID mobile vaccine clinics are held outdoors and may be canceled in rainy or stormy conditions. To learn more about pediatric vaccinations (ages 5-11), we invite you to visit the [facility] webpage. https://www.[employer].org/p ages/1572-Qfhfo-Euroweohuwl-Freq akefzg-Bpmwk-Hnpodcckj.html To learn more about the COVID-19 vaccine, we invite you to visit the CDC website for a list of frequently asked questions.https://www.cdc.gov/co ronavirus/2019-ncov/vaccines/faq .html [facility] Patient Portal Access Instructions: Stay connected with your healthcare team and access your personal medical information anytime with the [facility] Patient Portal. Please follow the directions below to create your [facility] account: 1.Access the email account you provided upon registration to the hospital/physician office.2.Look for an invitation email from [facility].3.Open the email and access the invitation link: Accept Invitation to [facility].4.Fill in the required morocho to create your account. To access your account, visit [email or web address]. Click the blue button labeled Access Patient [...] you will allow to register on the [facility] Patient Portal for access to your information. You can also access the [facility] Patient Portal on the [employer] otoniel. Simply click on Patient Portal and then log into your account. If you would like to receive a full copy of your medical records, please contact the [facility] Medical Records Department by calling [phone], Tuesday through Tuesday between 8 a.m. and [...] Call your local pharmacy or go to http://[employer]Vaccsys/1X1Cs3g to find one close to you.3.Make use of household items: Use cat litter or old coffee grounds to dispose medications if other options are not available. Mix your drugs with these household products, seal them in an airtight container and throw it into the garbage. Call [facility]: [phone] to be sure your drugs can be [...] COPY. Signatures Patient Education Materials 5 - [facility] Post-op Instruction 03/2017 (13008) Medication Leaflets oxycodone My discharge plan and instructions have been reviewed and explained to me and I,FLEX WOOTEN understand my current condition and have read and understand these discharge instructions. I have received a written copy of the plan/instructions. If I have questions, I am aware that I should contact my doctor. Patient/Engineer Systems Signature: Date/Time: Relationship to Patient: Witness Name/Signature: Date/Time: [facility] 02-23-2023 Note Date of Service February [...] the past. She states she went to [facility]. We do have physical therapy [...] kg (02/22/23) Medications Medications (34) Active Scheduled: () acetaminophen 500 mg Tablet 1,000 mg 2 [...] of pulmonary embolism. I have reviewed the [place] Automated Rx Reporting System (OARRS) report for [...] PA-C on 02/23/2023 07:28 AM [facility] 02-22-2023 Note ORIGINAL EXAMINATION: TWO XRAY [...] by: Jey Fabian MD Preliminary Report By: Jye Fabian MD Electronically signed By Jey Fabian MD Dictated Date: 02/22/2023 1:06:37 PM Prelim Date: 02/22/2023 1:07:27 PM Sign Date: 02/22/2023 1:07:27 PM Ordering Provider: [facility] 02-22-2023 Note ORIGINAL EXAMINATION: TWO XRAY [...] Sign Date: 02/22/2023 1:07:27 PM Ordering Provider: [facility] 02-22-2023 Anesthesiology Consult note Patient: FLEX WOOTEN Age: 62 years Sex: Female : 1960 Associated Diagnoses: None Author: MARTINA GOODWIN APRN-COLUMNIST Preoperative Information Time of last food or [...] Sister Diabetes Mother Sister Procedure history: Bunionectomy (70355435). Comments: 02/03/2023 13:48 Hansa Álvarez RN BILATERAL Plantar fasciectomy (057470723). Comments: 02/03/2023 13:48 Hansa Álvarez RN LEFT Fusion of lumbosacral region of spine by posterior approach (2313413916). Carpal tunnel release (347923728). Comments: 02/03/2023 13:50 Hansa Álvarez RN BILATERAL Tonsillectomy and adenoidectomy (217017278). Tubal ligation (028400300). Hysterectomy (361024545). Pump, device (0954839000). Comments: 02/03/2023 13:51 Hansa Álvarez RN PAIN PUMP Total knee arthroplasty (1642918860). Comments: 02/03/2023 13:52 Hansa Álvarez RN LEFT [...] Resp Rate 17 br/min (FEB 22 09:31) NGY565 mmHg (FEB 22 09:31) DBP77 mmHg (FEB 22 09:31) Measurements from flowsheet : Measurements 02/22/2023 9:31 EDT Height 162.6 cm Admission Weight 110 kg [place] Body Weight 54.74 kg Admission Body Mass [...] Height 162.6 cm Admission Weight 110 kg [place] Body Weight 54.74 kg Admission Body Mass [...] no difficulties Skin Temperature Warm Skin Description [place], Normal for ethnicity, Dry Skin Integrity Intact Mucous Membrane Color [place] Skin Moisture General Dry IV Present Present [...] no symptoms Safety Brochure Information Reviewed Yes [facility] Pramod Video Viewed No Teaching Evaluation No further teaching needed Admission Note-Nursing Same Day Patient History (Modified) . Assessment and Plan [place] Society of Anesthesiologists (ASA) physical status classification: [...] GOODWIN on 02/22/2023 10:59 AM [facility] 10-06-2022 Telephone encounter Note Name of caller requesting page:Ray Phone Number of caller: [phone] ext [phone] Facility requesting page: [employer] Reason for Page: [...] peer to peer review with their medical interpreter. The acceptance date for the peer to peer is on or before 10/08/22 at 3pm. Peer to Peer can be scheduled by call Ray at [phone] ext [phone] with reference number [id number]. Thank you. Response from Dr. Wright: I have never seen or met the patient Im not sure who needs to be contacted for this patient Reached out to [facility] management. Advised to call Ray back. Spoke with another nurse advisor. Asked when order was placed, was advised it was 09/30/22 which was before pt had a chart with [facility]. There is another Dr. Tre Anderson at [facility]. That is where the records came from. The nurses states they will reach out to [facility]. [facility] 10-06-2022 Miscellaneous Notes Name of caller requesting page:Matthew Phone Number of caller: [phone] ext [phone] Facility requesting page: [employer] Reason for Page: [...] peer to peer review with their medical interpreter. The acceptance date for the peer to peer is on or before 10/08/22 at 3pm. Peer to Peer can be scheduled by call Ray at [phone] ext [phone] with reference number [id number]. Thank you. Response from Dr. Wright: I have never seen or met the patient Im not sure who needs to be contacted for this patient Reached out to [facility] management. Advised to call Ray back. Spoke with another nurse advisor. Asked when order was placed, was advised it was 09/30/22 which was before pt had a chart with [facility]. There is another Dr. Tre Anderson at [facility]. That is where the records came from. The nurses states they will reach out to [facility]. documented in this encounter [facility] 06-23-2022 Miscellaneous Notes I left a message for Cary at [employer] regarding their addendum request. If they have Dr. Aggarwal' note, they have all the answers they need. Not sure if they have the patient's clinic note. Mendy Adams RN documented in this encounter [facility] 05-19-2022 Note HNO ID: [id number] Author: Nicolás Aggarwal MD Service: ? Author [...] Diagnosis Date DVT (deep venous thrombosis) (HCC) 2014 post knee replacement Fibromyalgia Hemorrhage of gastrointestinal tract, unspecified Hemorrhage of rectum and anus Internal hemorrhoids without mention of complication Other forms of migraine Other unspecified back disorder Pulmonary embolism ([facility]) 2014 PAST SURGICAL HISTORY Procedure Laterality [...] Lungs: No H (more content not included)... [facility] 05-19-2022 Note HNO ID: [id number] Author: RT Charley(R) Service: Radiology Author Type: [...] RT Charley(R) May 19, 2022 10:16 AM [facility] 05-19-2022 History of Presen t illness [...] Diagnosis Date DVT (deep venous thrombosis) ([facility]) 2014 post knee replacement Fibromyalgia Hemorrhage of gastrointestinal tract, unspecified Hemorrhage of rectum and anus Internal hemorrhoids without mention of complication Other forms of migraine Other unspecified back disorder Pulmonary embolism ([facility]) 2014 PAST SURGICAL HISTORY Procedure Laterality [...] -- Kody George PAST SURGICAL HISTORY OF 2010 left knee [...] X-Rays The patient's pertinent medical history from [facility] has been reviewed. PFOMIS forms have [...] records. This note was partially generated using [employer] voice recognition system, and there may be some incorrect words, spellings, and punctuation that were not noted in checking the note before saving. Scribe Attestation: By signing my name below, I, Brianda Decker, attest that this documentation has been prepared under the direction and in the presence of Nicolás Aggarwal MD. Electronically Signed: Brianda Bestradha kj, May 19, 2022 10:50 AM Nicolás Aggarwal M.D. documented in this encounter [facility] 05-19-2022 History of Presen t [...] 2022 10:16 AM documented in this encounter [facility] 02-07-2015 Miscellaneous Notes PSR: Please call pt for PLUGGER Yearly and mammogram. Thanks. Patient received letter for annual mammogram, please place order and have corn miller call her. Patient prefers AM appts. documented in this encounter [facility] Evaluation + Plan note Future Appointments [facility] Evaluation note Diagnosis Other screening mammogram [facility]* Diagnosis Pes planus of left foot- Primary Primary osteoarthritis of left foot Diabetic neuropathy, painful (HCC) Type II or unspecified type diabetes mellitus with neurological manifestations, not stated as uncontrolled Acquired valgus deformity of left ankle [facility]* Diagnosis Onset Date Resolution Status Diabetes chronic High cholesterol chronic Hypertension chronic Obesity chronic Diabetes chronic Hypertension chronic Obesity chronic [facility] Work Phone: Evaluation note* Diagnosis Onset Date Resolution Status NIEVES (dyspnea on exertion) re solved Hypoxia resolved [facility] Work Phone: Evaluation note* Diagnosis Acquired valgus deformity of left ankle- Primary documented in this encounter [facility]* Diagnosis Pain Generalized pain documented in this encounter [facility] note* Diagnosis Diarrhea, unspecified type- Primary documented in this encounter [facility] Work Phone: Evaluation note* Diagnosis Diarrhea, unspecified type- Primary documented in this encounter [facility] Work Phone: Hospital course Narrative No data available for this section [facility] Hospital Discharge instructions No data available for this section [facility] Progress note No data available for this section [facility] Reason for referral (narrative)* Diagnostic Procedure Only (Routine) - Pending Review Specialty Diagnoses / Procedures Referred By Kelton t Referred To Contact XR IMAGING Diagnoses Acquired valgus deformity of left ankle Procedures XR ANKLE GENERAL 3V AP/LAT/OBL LEFT RADEX ANKLE COMPLETE MINIMUM 3 VIEWS Nicolás [place] [address] [place] [address] Xr Imaging Referral ID Status Reason Start Date Expiration Date Visits Requested Visits Authorized [id number] Pending Review Auto-Generat ed Referral 09/28/2022 10/27/[address] [facility] Diagnostic Procedure Only (Routine) - Closed Specialty Diagnoses / Procedures Referred By Contac t Referred To Contact XR IMAGING Diagnoses Pain Procedures XR FOOT GENERAL 3V AP/LAT/OBL LEFT RADEX FOOT COMPLETE MINIMUM 3 VIEWS Nicolás [place] [address] [place] [address] [place] [address] Referral ID Status Reason Start Date Expiration Date V isits Requested Visits Authorized [id number] Closed Auto-Generate d Referral 05/04/2022 06/03/2023 1 1 [facility] Summary Purpose Family History No [...] No November 10, 2021 11:41am Power of Director Of Student Life No November 10 11:41am Advance Directive Response Recorded Date/ Time Advance Directives Yes August 01, 2015 5:05pm Living Will No January 25, 2022 2 :05pm Power of Director Of Student Life No January 25, 2022 2:05pm Advance Directive Response Recorded Date/ Time Advance Directives Yes August 01, 2015 5:05pm Living Will No January 30, 2022 1 1:58pm Power of Director Of Student Life No January 30, 2022 11:58pm Advance Directive Response Recorded Date/ Time Advance Directives Yes April 2:05pm Living Will No May 19, 2022 2:05pm Power of Director Of Student Life No April 2:05pm Advance Directive Response Recorded Date/ Time Advance Directives Yes April 2:05pm Living Will No September 16 5:52pm Power of Director Of Student Life No September 16, 2022 5:52pm Latest Code [...] PRE SURGERY RT TOTAL KNEE W PADMAJA GIANG PROTOCAL PRE SURGERY SOB, RULE OUT PE Chief Complaint PADMAJA PROTOCAL PRE KENT RGERY RT TOTAL KNEE W PADMAJA GIANG PROTOCAL PRE SURGERY SOB, RULE OUT PE SOB Chief Complaint PADMAJA PROTOCAL PRE KENT RGERY RT TOTAL KNEE W PADMAJA GIANG PROTOCAL PRE SURGERY SOB, RULE OUT PE SOB HYPERGLYCEMIA Chief Complaint bookmaker map, 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 Reason for Visit Diabetes High cholesterol Hypertension Obesity Diabetes Hypertension Obesity Chief Complaint 3 M FU RULE OUT DVT HYPOXIA HYPOXIA HYPOXIA SOB Reason for Visit NIEVES (dyspnea on exer tion) Hypoxia Reason for Referral Specialty Diagnoses / Procedures Referred By Kelton rincon Referred To Contact Gastroenterology Diagnoses Diarrhea, unspecified type Procedures Colonoscopy Screening; Average Risk Patient OK COLONOSCOPY FLX DX W/COLLJ SPEC WHEN PFRMD OK COLON CA SCRN NOT HI RSK IND OK COLORECTAL SCRN; HI RISK IND OK COLONOSCOPY W/BIOPSY SINGLE/MULTIPLE OK COLSC FLX W/RMVL OF TUMOR POLYP LESION SNARE TQ OK COLSC FLX W/REMOVAL LESION BY HOT BX FORCEPS Renita Mijares, DO [address] [facility], [place] [address] Referral ID Status Reason Start Date Expiration Date V isits Requested Visits Authorized [id number] Authorized 07/26/2023 07/25/2024 1 1 Additional Source Comments INFORMATION SOURCE (unrecogn ized section and content) DATE CREATED AUTHOR 05/09/2019 [facility] DATE CREATED AUTHOR AUTHOR'S ORGANIZ ATION 05/09/2019 [facility] DATE CREATED AUTHOR AUTHOR'S ORGANIZ ATION 02/13/2020 [facility] DATE CREATED AUTHOR AUTHOR'S ORGANIZ ATION 05/27/2021 [facility] DATE CREATED AUTHOR AUTHOR'S ORGANIZ ATION 06/26/2022 [facility] DATE CREATED AUTHOR AUTHOR'S ORGANIZ ATION 03/07/[address] [facility] ([place]) DATE CREATED AUTHOR AUTHOR'S ORGANIZ ATION 09/08/2023 [facility] DATE CREATED AUTHOR AUTHOR'S ORGANIZ ATION 11/07/2023 [facility] DATE CREATED AUTHOR AUTHOR'S ORGANIZ ATION 05/13/2025 [facility] Source Comments (unrecognize d section and content) In the event this informatio n is protected by the Federal Confidentiality of Alcohol and Drug Abuse Patient Records regulations: The Federal rules restrict any use of the information to criminally investigate or prosecute any alcohol or drug abuse patient.[facility] the event this information is protected by the Federal Confidentiality of Alcohol and Drug Abuse Patient Records regulations: The Federal rules restrict any use of the information to criminally investigate or prosecute any alcohol or drug abuse patient.[facility] the event this information is protected by the Federal Confidentiality of Alcohol and Drug Abuse Patient Records regulations: The Federal rules restrict any use of the information to criminally investigate or prosecute any alcohol or drug abuse patient.[facility] the event this information is protected by the Federal Confidentiality of Alcohol and Drug Abuse Patient Records regulations: The Federal rules restrict any use of the information to criminally investigate or prosecute any alcohol or drug abuse patient.[facility] the event this information is protected by the Federal Confidentiality of Alcohol and Drug Abuse Patient Records regulations: The Federal rules restrict any use of the information to criminally investigate or prosecute any alcohol or drug abuse patient.[facility] Reason for Visit (unrecogniz ed [...] COMPLETE MINIMUM [address] VIEWS Nicolás [place] [address] [place] [address] [place] [address] Referral ID Status Reason Start Date Expiration Date V isits Requested Visits Authorized [id number] Closed Auto-Generate d Referral 05/04/2022 06/03/2023 1 1 Specialty Diagnoses / Procedures Referred By Contac t Referred To Contact Diagnoses Diarrhea, unspecified Procedures OK COLONOSCOPY FLX DX W/COLLJ SPEC WHEN PFRMD OK COLONOSCOPY W/BIOPSY SINGLE/MULTIPLE OK COLSC FLX W/RMVL OF TUMOR POLYP LESION SNARE TQ OK COLSC FLX W/REMOVAL LESION BY HOT BX FORCEPS [id number] [address] [place] [address] [phone] Referral ID Status Reason Start Date Expiration Date Visits Re quested Visits Authorized [id number] 1 1 Reason Onset Date Comments Referral [...] Care Teams (unrecognized sec tion and content) Hydrometer Tester Relationship Specialty Start Date End Date Rica Padgett DO [address] [place] [address] PCP - General Family Medicine 04/09/19 Hydrometer Tester Relationship Specialty Start Date End Date Rica Padgett DO [address] [place], [place] [id number] PCP - General Family Medicine 04/09/19 Team Status: Active Member Role Status Dates Dr. Rica Padgett DO Family Provider Active Dr. Rica Padgett DO Primary Care Provider Active Team Status: Inactive Member Role Status Dates Dr. Rica Padgett DO Primary Care Provider, Referring P rovider Active Fabiola Ruiz , STRUCTURAL TECHNICIAN-C Attending Provider Active Team Status: Active Member Role Status Dates Dr. Rica Padgett DO Primary Care Provider Active Dr. Marie Dee , DO Emergency Provider Active Dr. Adebayo Mckeon DO Admit Provider, Attending Provider, Other Provider [...] Status: Active Member Role Status Dates Dr. iRca Padgett DO Primary Care Provider Active Dr. [...] MD Attending Provider, Referrin g Provider Active Hydrometer Tester Relationship Specialty Start Date End Date Rica Padgett DO [address] [place] [address] PCP - General Family Medicine 04/09/19 Hydrometer Tester Relationship Specialty Start Date End Date Rica Padgett DO [address] [place] [address] PCP - General Family Medicine 04/09/19 Hydrometer Tester Relationship Specialty Start Date End Date Rica Padgett DO [address] [place] [id number] PCP - General Family Medicine 09/06/23 Hydrometer Tester Relationship Specialty Start Date End Date Rcia Padgett DO [address] [place] [address] PCP - General Family Medicine 09/06/23 Hydrometer Tester Relationship Specialty Start Date End Date Erin Saunders [address] [facility] [place], [place] [address] PCP - General Family Medicine 10/01/22 Hydrometer Tester Relationship Specialty Start Date End Date Erin Saunders [address] [place] [address] PCP - General Family Medicine 10/01/22 FOR [...] BE BASED ON THE PRIMARY CLINICAL RECORDS. [facility] [employer] [facility]. provides no warranty or guarantee of the accuracy or completeness of information in this document.
[2025-05-14 16:10] LABS: Anion Gap 13 (5-15); BUN 13 mg/dL (4-19); BUN/Creat Ratio 17.0 RATIO (10-20); Calcium,Total 8.7 mg/dL (7.6-11.0); Carbon Dioxide 26.8 mmol/L (21.0-32.0); Chloride 98 mmol/L (98-108); Glucose 407 mg/dL (70-99); Potassium 4.6 mmol/L (3.3-5.1); Pro- Brain NATRIURETIC PEPTIDE 253 pg/mL (<=900)
--- NOTE | 2025-05-14 16:35 | RAD_ITS ---
PROCEDURE: HIP, UNI W/ PELVIS 2-3 VIEWS 05/14/2025 REASON FOR EXAM: HIP PAIN TECHNIQUE: Procedure Code: RAD Modality: DX Procedure: HIP, UNI W/ PELVIS 2-3 VIEWS Laterality: COMPARISON: 05/14/2023. FINDINGS: No evidence of acute fracture or dislocation. [id number] right and mild left hip degenerative changes. Partially visualized scoliosis and fixation of L3 through L5. Right sacroiliac joint fixation. RAD/HIP, UNI W/ Pelvis 2-3 Views IMPRESSION: No acute osseous abnormalities. Pfpyu-[id number]-[id number]-left hip osteoarthrosis. Reading Location: [id number]
--- NOTE | 2025-05-15 17:27 | STRESSREP ---
Stress Test Report Pharmacologic myocardial perfusion stress test. 65-year-old lady with a history of coronary artery disease. Resting EKG demonstrates sinus bradycardia with a rate of 57 bpm. Resting blood pressure is 130/70 mmHg. 0.4 mg of regadenoson was infused per usual protocol followed by rapid intravenous saline flush injection. Continuous EKG monitoring was performed. The maximum heart rate was 80 bpm which was 52% of max impacted heart rate the maximum workload was 1 metabolic equivalent. At rest there were no ST or T wave changes noted to suggest ischemia and at peak infusion nonspecific ST changes were noted which did not meet the criteria for ischemia. No clinical angina is noted. The final blood pressure was 126/70 mmHg. Myocardial perfusion protocol. 14.6 mCi of technetium 99m sestamibi was injected at rest. 0.4 mg of regadenoson was infused per usual protocol. At peak infusion 45 mCi of technetium 99m sestamibi was injected stress images were obtained stress and rest images were reconstructed and compared in the short axis vertical long and horizontal long axis. Gated images were also obtained. Perfusion SPECT analysis: Review of the stress images demonstrate normal uptake of tracer noted in all areas of the myocardium. There is a mildly reduced area in the anteroseptal wall. The resting images similar demonstrated normal uptake of tracer noted in all areas of the myocardium. Mild reduction of perfusion noted in the anteroseptal wall. A previous infarct cannot be completely excluded. Gated SPECT analysis: The gated ejection fraction is 71%. Conclusion: Normal pharmacologic myocardial perfusion stress test. normal ejection fraction.
== END | disposition home or self-care (01) ==
PROVIDERS: PCP Family Medicine; Referring Provider Internal Medicine Cardiovascular Disease; Visit Provider Internal Medicine Cardiovascular Disease
DX: I25.10 Atherosclerotic heart disease of native coronary artery without angina pectoris (principal); R06.02 Shortness of breath; M25.551 Pain in right hip
CPT/HCPCS: 36415; 73502; 78452; 80048; 83880; 93017; A9500; A4216; J2785

== ENCOUNTER → 2025-07-03 | Outpatient (CLI) | payer MEDICARE, OTHER, SELFPAY ==
--- NOTE | 2025-07-03 14:00 | VDLE_ITS ---
Reason For Study VL/Venous Duplex US, Unilateral
== END | disposition home or self-care (01) ==
LOC: CVS 13:54
PROVIDERS: PCP Family Medicine; Referring Provider Podiatrist; Visit Provider Podiatrist
DX: M79.662 Pain in left lower leg (principal)
CPT/HCPCS: 93971

== ENCOUNTER → 2025-07-24 | Outpatient (CLI) | payer MEDICARE, OTHER, SELFPAY ==
--- NOTE | 2025-07-24 10:30 | RAD_ITS ---
PROCEDURE: THORACIC SPINE 2 VIEWS 07/24/2025 REASON FOR EXAM: DDD TECHNIQUE: Procedure Code: RADSPT2 Modality: DX Procedure: THORACIC SPINE 2 VIEWS COMPARISON: November 20, 2024 FINDINGS: There is persistent dextroconvex curvature of the thoracic spine and multilevel degenerative disc disease present. There is no acute fracture or subluxation noted. Adjacent soft tissues are within normal limits. RAD/Thoracic Spine 2 Views IMPRESSION: Degenerative changes without acute bony abnormality. Reading Location: [facility]
== END | disposition home or self-care (01) ==
PROVIDERS: PCP Family Medicine; Referring Provider Anesthesiology Pain Medicine; Visit Provider Anesthesiology Pain Medicine
DX: M51.360 Other intervertebral disc degeneration, lumbar region with discogenic back pain only (principal); M47.9 Spondylosis, unspecified
CPT/HCPCS: 72070

== ENCOUNTER → 2025-08-07 | Outpatient (CLI) | payer MEDICARE, OTHER, SELFPAY ==
[2025-08-07 12:19] LABS: Hematocrit 44.5 % (37-47); Hemoglobin 13.8 g/dL (12.0-15.0); Immature Granulocytes Count 0.030 X10^3/uL (0.0-0.0); Mean Corp Hgb Conc 31.0 g/dL (32-36); Mean Corpuscular Volume 92.5 fL (81-99); Mean Platelet Vol. 9.9 fl (6.2-12.0); NRBC Flagged by Analyzer 0 % (0-5); Platelet Count 264 K/mm3 (150-450); RBC Distribution Width CV 14.3 % (11.6-14.6); RBC Distribution Width SD 47.8 fl (35.1-43.9); Red Blood Count 4.81 M/mm3 (4.2-5.4); White Blood Count 7.9 K/mm3 (4.4-11.0)
[2025-08-07 13:02] LABS: AST(SGOT) 156 U/L (<=31); Alanine Aminotransfer ALT/SGPT 109 U/L (<=34); Albumin, Serum 4.1 g/dL (3.4-4.8); Alkaline Phosphatase 101 U/L (35-104); Anion Gap 14 (5-15); BUN 18 mg/dL (4-19); BUN/Creat Ratio 24.8 RATIO (10-20); Calcium,Total 9.1 mg/dL (7.6-11.0); Carbon Dioxide 24.5 mmol/L (21.0-32.0); Chloride 100 mmol/L (98-108); Globulin 2.8 g/dL (2.2-4.2); Glucose 216 mg/dL (70-99); Potassium 4.5 mmol/L (3.3-5.1)
== END | disposition home or self-care (01) ==
LOC: BFHLAB 09:58
PROVIDERS: PCP Family Medicine; Visit Provider Nurse Practitioner Family
DX: Z01.818 Encounter for other preprocedural examination (principal)
CPT/HCPCS: 36415; 80053; 85025

== ENCOUNTER 2025-08-16 08:00 | Day surgery (SDC) | payer MEDICARE, OTHER, SELFPAY ==
--- NOTE | 2025-08-12 23:37 | PAT.ANE_ITS ---
Pre-Assessment Diagnosis/Proposed Procedure Planned Operative Procedure(s): ARTHRODESIS OF THE LEFT FIRST INTERPHALANGEAL JOINT Anesthesia History Anesthesia History - cad administrator: Anesthesia History - cad administrator Hx Hospitalization Yes: 01/2025 CHF 08/12/25 08:44 Any Problems With Anesthesia Yes: HARD TO PUT OUT 08/12/25 08:44 Cholinesterase deficiency No 08/12/25 08:44 You/Your Family Experience No 08/12/25 08:44 fever (hyperthermia) with Relationship Recent Exposure to Contagious No 02/17/24 06:38 Disease Does patient have nerve Yes: DILAUDID PAIN PUMP 08/12/25 08:44 stimulator Patient instructed to have device shut off --Does patient have Pacemaker or ICD? When Was Last Pacemaker Check QUESTION #4 FULL TEXT: You/Your Family Experience fever (hyperthermia) with Anesthesia Last Oral Intake Last Oral intake: Last Oral Intake NPO since Meds taken in AM with sips of water? Meds patient instructed to take am of surgery PONV PONV - cad administrator: PONV - cad administrator Female Yes 08/12/25 08:44 HX of Motion Sickness Yes 08/12/25 08:44 HX of N/V After Surgery No 08/12/25 08:44 Non-Smoker Yes 08/12/25 08:44 Duration of Surgery greater Yes 08/12/25 08:44 than 60 minutes Number of Risk Factors 4 08/12/25 08:44 PONV Score Severe Risk 08/12/25 08:44 Height & Weight Height & Weight: Anesthesia: Height & Weight Height 5 ft 4 in 06/24/25 10:03 Respiratory Assessment Respiratory Assessment - cad administrator: Respiratory Tract Infection Hx - cad administrator Hx Respiratory Tract Infection No 08/12/25 08:44 STOP Sleep Apnea STOP Sleep Apnea - cad administrator: STOP Sleep Apnea - cad administrator Hx Hypertension Yes: CONTROLLED WITH MEDS 08/12/25 08:44 Hx Sleep Apnea Yes 08/12/25 08:44 CPAP No 08/12/25 08:44 BIPAP Yes: 2L O2 08/12/25 08:44 Do you snore loudly (louder than talking or can be heard Do you often feel tired/ fatigued/ sleepy during daytime? Has anyone observed you stop breathing during sleep? STOP Results Positive 08/12/25 08:44 QUESTION #5 FULL TEXT : Do you snore loudly (louder than talking or can be heard through closed doors)? 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 Specify any problems Hx of Preganancy in last 3 No 08/12/25 08:44 Months Nurse Filling Out Transfusion DSCHRIBER 08/12/25 08:44 & Questions: Date: 08/12/25 08/12/25 08:44 Time: 08:48 08/12/25 08:44 Patient unable to answer at this time (ie. confused, unrespo /Reproduction History /Reproductive History - cad administrator: /Reproductive Hx- cad administrator Hx Now No 08/12/25 08:44 Gestational Age (in weeks): EDC: Hx Hx Para Hx Section SAB No 08/12/25 08:44 Does the father of the baby or his family experience fever w Father of the baby Malignant Hypertension history comment PFSH Medical History (Updated 08/12/25 @ 09:08 by Ammy Arias) Wears glasses Post-menopausal MRSA infection Adopted Insulin dependent diabetes mellitus Ambulates with cane Uses wheelchair DVT (deep venous thrombosis) Pulmonary embolism Restless legs Back pain Injury of back Dietary restriction Gastric reflux Former smoker Shortness of breath on exertion Leg cramps History of pain when walking History of edema History of echocardiogram History of stress test Cardiology follow-up encounter Central sleep apnea treated with adaptive servo-ventilation (ASV) device (HFpEF) heart failure with preserved ejection fraction Essential (primary) hypertension Hypothyroidism Anxiety disorder, unspecified Depressive 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 PTSD (post-traumatic stress disorder) Fibromyalgia Arthritis DVT (deep venous thrombosis) Back pain On home oxygen therapy Implantable intrathecal infusion pump present Home Medications ?Medication ?Instructions ?Recorded ?Last Taken ?Type omeprazole 40 mg capsule,delayed 40 mg PO DAILY GERD 0 08/30/13 03/24/25 History release levothyroxine 50 mcg tablet 50 mcg PO DAILY thyroid 03/24/25 History atenolol 25 mg tablet 25 mg PO DAILY heart 9 03/24/25 History methotrexate sodium 2.5 mg tablet 20 mg PO FR fibromya lgia 08/19/20 03/24/25 History leucovorin calcium 10 mg tablet 5 mg PO FR supplement 12/08/20 03/24/25 History cholecalciferol (vitamin D3) 25 25 mcg PO DAILY supple ment 09/13/22 03/24/25 History mcg (1,000 unit) capsule folic acid 1 mg tablet 1 mg PO BREAKFAST supplement #30 03/03/24 03/24/25 Rx tabs oxycodone-acetaminophen 5 mg-325 1 tab PO BID PRN pain 07/27/24 03/24/25 History mg tablet fenofibrate nanocrystallized 48 mg 48 mg PO DAILY chol esterol 30 days 03/18/25 0 03/24/25 Rx tablet #30 tabs tizanidine 4 mg tablet 2 mg (1/2 x 4 mg) PO TID PRN 03/18/25 03/24/25 Rx Muscle spasm 3 days #0 tabs ropinirole 1 mg tablet 1 mg PO BID restless legs Unknown History clonidine HCl 0.1 mg tablet 0.1 mg PO BID Anxiety/trem ors 04/03/25 Unknown History blood-glucose sensor (FreeStyle #6 ea 04/22/25 Unknown Rx Prema 3 Plus Sensor device) lorazepam 2 mg tablet 1 mg PO DAILY 06/03/25 Unkno wn History hydroxyzine HCl 25 mg tablet 50 mg PO QHS 07/30/25 Unk nown History sumatriptan succinate 50 mg tablet 100 mg PO Q2H PRN m igraine headache 07/30/25 Unknown History escitalopram oxalate 20 mg tablet 20 mg PO DAILY for d epressive 08/06/25 Unknown Rx disorder #90 TABLETS gabapentin 100 mg capsule 100 mg PO TID nerve pain 90 days 08/06/25 Unknown Rx #270 caps insulin lispro 100 unit/mL 30 unit (0.3 mL) subcut TID WMEAL 08/06/25 Unknown Rx subcutaneous pen (Humalog KwikPen diabetes #117 mL (U-100) Insulin) dulaglutide 0.75 mg/0.5 mL 0.75 mg subcut MO 08/12/25 08/05/25 History subcutaneous pen injector (Trulicity) furosemide 40 mg tablet (Lasix) 40 mg PO PRN PRN edema 08/12/25 Unknown History insulin glargine 100 unit/mL (3 66 unit subcut DAILY d iabetes 08/12/25 Unknown History mL) subcutaneous pen (Lantus mellitus Solostar U-100 Insulin) trazodone 50 mg tablet 50 mg PO QHS 08/12/25 Unknow n History Allergy/AdvReac Type Severity Reaction Status Date / Time amitriptyline Allergy Intermediate flushing Verified 08/12/25 08:28 niacin Allergy Itching Verified 08/12/25 08:28 venlafaxine AdvReac Severe Vomiting Verified 08/12/25 08:28 metformin AdvReac Intermediate Diarrhea Verified 08/12/25 08:28 Family History Sister Breast cancer Diabetes Kidney disease Mother Diabetes Heart disease Other Arthritis Surgical History (Updated 08/12/25 @ 09:08 by Ammy Arias) History of esophagogastroduodenoscopy (EGD) Hx of colonoscopy Hx of foot surgery H/O arthroplasty History of bunionectomy of both great toes History of lumbar fusion History of total right knee replacement Hx of surgical procedure Hx of arthroscopic knee surgery History of carpal tunnel release Hx of hysterectomy History of back surgery Hx of total knee replacement hx of plantar fasciotomy Social History household members: spouse Smoking Status: Former smoker alcohol intake: never substance use type: does not use caffeine: No what type of physical activity do you participate in: none seatbelt use: always do you feel safe at home: Yes additional social history: [id number] [facility] [employer] Patient is disabled Audit: Pertinent Findings Pertinent Findings EKG Perinent findings: 03/28/2025. Normal sinus rhythm. Inferior infarct, age undetermined. Prolonged QT. Stress test pertinent findings: 05/15/2025. 71% ejection fraction. Mildly reduced perfusion noted in the anterior septal wall at rest and with stress.. Previous infarct cannot be completely excluded. Normal myocardial perfusion stress test. Echo (EF%) pertinent findings: 03/25/2025. EF of 65%. PASP is 30 mmHg. Consult pertinent findings: July 30, 2025. Domenica SPEARS 1. Shortness of breath on exertion-no changes to medication. Patient is to work on lifestyle changes including exercise and weight loss. Follow-up next visit to determine if cardiac testing is recommended. Recommendation Anesthesia Recommendation Anesthesia recommendation: OPTIMIZED for anesthesia
[2025-08-16] VITALS (12 sets, daily range): BP systolic 109–132; BP diastolic 63–78; PULSE 65–76; RESP 16–18; TEMP 36.1–36.7; O2SAT 88–95; BMI 45.3
[2025-08-16] MEDS: Lactated Ringers 1,000 ML 15 ML IV (08:35)
--- NOTE | 2025-08-16 08:56 | PCM.PRE.AN2 ---
ASA Classification* ASA Classification ASA Classification: 3 Assessment & Plan Anesthesia* Anesthesia Assessment Anesthesia Assessment: Discussed sedation and/or anesthesia options, risks, benefits, and alternatives with patient/parents/legal guardian/POA. Questions invited. The patient/parents/legal guardian/POA seems to understand and agrees to proceed with anesthesia plan. Reviewed the physical assessment, medical history, allergy history and patient home medications list prior to surgery/procedure/anesthetic and documented any changes. Performed airway and anesthesia risk assessments. Anesthesia Type Anesthesia Type: MAC History Source History Obtained from:: Patient and Chart Anesthesia Focused Assessment* Temperature: 97.8 F Pulse Rate: 74 Blood Pressure: 132/68 Respiratory Rate: 18 Pulse Ox: 91 Oxygen Delivery Method: Room Air Airway Assessment Mouth opens: >3 cm Mallampati Score: III Teeth Condition: Caps/Crowns (Left top molar has a crown. It is tight.) and Missing (Patient is missing couple teeth. Rest of the teeth are tight.) Neck Range of motion (ROM): Limited ROM (Somewhat Decreased) Labs Anesthesia Preop lab: CBC WBC, (4.4-11.0) 7.9 K/mm3 08/07/25, 09:59 RBC, (4.2-5.4) 4.81 M/mm3 08/07/25, 09:59 Hgb, (12.0-15.0) 13.8 g/dL 08/07/25, 09:59 Hct, (37-47) 44.5 % 08/07/25, 09:59 Plt Count, (150-450) 264 K/mm3 08/07/25, 09:59 CHEMISTRY Potassium, (3.3-5.1) 4.5 mmol/L 08/07/25, 09:59 Sodium, (133-145) 138 mmol/L 08/07/25, 09:59 Magnesium, (1.5-2.2) 1.8 mg/dL 03/15/25, 18:11 Phosphorus, (2.7-4.5) 3.2 mg/dL 03/17/25, 05:53 BUN, (4-19) 18 mg/dL 08/07/25, 09:59 Creatinine, (0.70-1.20) 0.72 mg/dL 08/07/25, 09:59 Glucose, (70-99) 216 mg/dL H 08/07/25, 09:59 POC Glucose, (74-106) 123 mg/dL H Today, 08:24 TSH, (0.300-4.200) 1.540 uIU/mL 03/15/25, 18:11 COAG PT, (11.7-14.9) 12.1 SECONDS 08/01/15, 13:15 Pre-Assessment Diagnosis/Proposed Procedure Planned Operative Procedure(s): ARTHRODESIS OF THE LEFT FIRST INTERPHALANGEAL JOINT Anesthesia History 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 When Was Last Pacemaker Check QUESTION #4 FULL TEXT: You/Your Family Experience fever (hyperthermia) with Anesthesia Last Oral Intake Last Oral intake: Last Oral Intake NPO since 07:30 08/16/25 08:20 Meds taken in AM with sips of Yes 08/16/25 08:20 water? Meds patient instructed to see medlist 08/16/25 08:20 take am of surgery Any additional information?: Yes Meds taken in AM with sips of water?: Yes PONV PONV - utility bill complaints investigator: PONV - utility bill complaints investigator Female Yes 08/12/25 08:44 HX of Motion Sickness Yes 08/12/25 08:44 HX of N/V After Surgery No 08/12/25 08:44 Non-Smoker Yes 08/12/25 08:44 Duration of Surgery greater Yes 08/12/25 08:44 than 60 minutes Number of Risk Factors 4 08/12/25 08:44 PONV Score Severe Risk 08/12/25 08:44 Height & Weight Height & Weight: Anesthesia: Height & Weight Height 5 ft 4 in 08/16/25 08:20 Weight: 120 kg 08/16/25 08:20 Body Mass Index (BMI) 45.3 08/16/25 08:20 Respiratory Assessment Respiratory Assessment - utility bill complaints investigator: Respiratory Tract Infection Hx - utility bill complaints investigator Hx Respiratory Tract Infection No 08/12/25 08:44 STOP Sleep Apnea STOP Sleep Apnea - utility bill complaints investigator: STOP Sleep Apnea - utility bill complaints investigator Hx Hypertension Yes: CONTROLLED WITH MEDS 08/12/25 08:44 Hx Sleep Apnea Yes 08/12/25 08:44 CPAP No 08/12/25 08:44 BIPAP Yes: 2L O2 08/12/25 08:44 Do you snore loudly (louder than talking or can be heard Do you often feel tired/ fatigued/ sleepy during daytime? Has anyone observed you stop breathing during sleep? STOP Results Positive 08/12/25 08:44 QUESTION #5 FULL TEXT : Do you snore loudly (louder than talking or can be heard through closed doors)? Tobacco Use History Tobacco Use History - utility bill complaints investigator: Tobacco Use History - utility bill complaints investigator Tobacco Use Smoking Status Former smoker 08/12/25 08:44 Hx Tobacco Use No 08/12/25 08:44 Years Smoking Packs Smoked per Day Smoking Cessation Date was No - quit smoking greater 08/12/25 08:44 within the last 15 years than 15 years ago Hx Smoking Cessation Date 03/16/94 08/12/25 08:44 Hx Smoking Cessation No 08/12/25 08:44 Counseling Hematologic Medial History Hematologic Hx - utility bill complaints investigator: Hematologic Medical Hx - roll former Hx of Blood Transfusion No 08/12/25 08:44 Hx of Transfusion in last 3 No 08/12/25 08:44 Months Date of Last Transfusion (if within last 3 months) Ever experience any problems No 08/12/25 08:44 with transfusion(s)? Specify any problems Hx of Preganancy in last 3 No 08/12/25 08:44 Months Nurse Filling Out Transfusion DSCHRIBER 08/12/25 08:44 & Questions: Date: 08/12/25 08/12/25 08:44 Time: 08:48 08/12/25 08:44 Patient unable to answer at this time (ie. confused, unrespo /Reproduction History /Reproductive History - utility bill complaints investigator: /Reproductive Hx- utility bill complaints investigator Hx Now No 08/12/25 08:44 Gestational Age (in weeks): EDC: Hx Hx Para Hx Section SAB No 08/12/25 08:44 Does the father of the baby or his family experience fever w Father of the baby Malignant Hypertension history comment Active Medications Active Medications: Current Medications Generic Name Dose Route Start Last Admin Trade Name Freq PRN Reason Stop Dose Admin Lactated Ringer's 1,000 mls @ 15 mls/hr 08/16/25 08:15 08/16/25 08:35 IV 15 mls/hr .Q48H EDMOND Administration PFSH Medical History Wears glasses Post-menopausal MRSA infection Adopted Insulin dependent diabetes mellitus Ambulates with cane Uses wheelchair DVT (deep venous thrombosis) Pulmonary embolism Restless legs Back pain Injury of back Dietary restriction Gastric reflux Former smoker Shortness of breath on exertion Leg cramps History of pain when walking History of edema History of echocardiogram History of stress test Cardiology follow-up encounter Central sleep apnea treated with adaptive servo-ventilation (ASV) device (HFpEF) heart failure with preserved ejection fraction Essential (primary) hypertension Hypothyroidism Anxiety disorder, unspecified Depressive 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 PTSD (post-traumatic stress disorder) Fibromyalgia Arthritis DVT (deep venous thrombosis) Back pain On home oxygen therapy Implantable intrathecal infusion pump present Home Medications ?Medication ?Instructions ?Recorded ?Last Taken ?Type omeprazole 40 mg capsule,delayed 40 mg PO DAILY GERD 08/30/13 08/16/25 History release levothyroxine 50 mcg tablet 50 mcg PO DAILY thyroid 10/21/17 08/16/25 History atenolol 25 mg tablet 25 mg PO DAILY heart 05/18/19 08/16/25 History methotrexate sodium 2.5 mg tablet 20 mg PO FR fibromyalgia 08/19/20 03/24/25 History leucovorin calcium 10 mg tablet 5 mg PO FR supplement 12/08/20 03/24/25 History cholecalciferol (vitamin D3) 25 25 mcg PO DAILY supplement 09/13/22 03/24/25 History mcg (1,000 unit) capsule folic acid 1 mg tablet 1 mg PO BREAKFAST supplement #30 03/03/24 03/24/25 Rx tabs oxycodone-acetaminophen 5 mg-325 1 tab PO BID PRN pain 07/27/24 03/24/25 History mg tablet fenofibrate nanocrystallized 48 mg 48 mg PO DAILY cholesterol 30 days 03/18/25 03/24/25 Rx tablet #30 tabs tizanidine 4 mg tablet 2 mg (1/2 x 4 mg) PO TID PRN 03/18/25 03/24/25 Rx Muscle spasm 3 days #0 tabs ropinirole 1 mg tablet 1 mg PO BID restless legs 03/25/25 08/16/25 History clonidine HCl 0.1 mg tablet 0.1 mg PO BID Anxiety/tremors 04/03/25 08/16/25 History blood-glucose sensor (FreeStyle #6 ea 04/22/25 Unknown Rx Prema 3 Plus Sensor device) lorazepam 2 mg tablet 1 mg PO DAILY 06/03/25 Unknown History hydroxyzine HCl 25 mg tablet 50 mg PO QHS 07/30/25 Unknown History sumatriptan succinate 50 mg tablet 100 mg PO Q2H PRN migraine headache 07/30/25 Unknown History escitalopram oxalate 20 mg tablet 20 mg PO DAILY for depressive 08/06/25 08/16/25 Rx disorder #90 TABLETS gabapentin 100 mg capsule 100 mg PO TID nerve pain 90 days 08/06/25 08/16/25 Rx #270 caps insulin lispro 100 unit/mL 30 unit (0.3 mL) subcut TIDWMEAL 08/06/25 Unknown Rx subcutaneous pen (Humalog KwikPen diabetes #117 mL (U-100) Insulin) furosemide 40 mg tablet (Lasix) 40 mg PO PRN PRN edema 08/12/25 Unknown History insulin glargine 100 unit/mL (3 66 unit subcut DAILY diabetes 08/12/25 Unknown History mL) subcutaneous pen (Lantus mellitus Solostar U-100 Insulin) trazodone 50 mg tablet 50 mg PO QHS 08/12/25 Unknown History dulaglutide 1.5 mg/0.5 mL 1.5 mg (0.5 mL) subcut QWEEK #2 mL 08/15/25 08/05/25 Rx subcutaneous pen injector (Trulicity) Allergy/AdvReac Type Severity Reaction Status Date / Time amitriptyline Allergy Intermediate flushing Verified 08/16/25 08:17 niacin Allergy Itching Verified 08/16/25 08:17 venlafaxine AdvReac Severe Vomiting Verified 08/16/25 08:17 metformin AdvReac Intermediate Diarrhea Verified 08/16/25 08:17 Family History Sister Breast cancer Diabetes Kidney disease Mother Diabetes Heart disease Other Arthritis Surgical History History of esophagogastroduodenoscopy (EGD) Hx of colonoscopy Hx of foot surgery H/O arthroplasty History of bunionectomy of both great toes History of lumbar fusion History of total right knee replacement Hx of surgical procedure Hx of arthroscopic knee surgery History of carpal tunnel release Hx of hysterectomy History of back surgery Hx of total knee replacement hx of plantar fasciotomy Social History household members: spouse Smoking Status: Former smoker alcohol intake: never substance use type: does not use caffeine: No what type of physical activity do you participate in: none seatbelt use: always do you feel safe at home: Yes additional social history: [employer] at [employer] Patient is disabled Review of Systems (Anesthesia) ROS Narrative System reviewed and no additional complaints, except as documented.
--- NOTE | 2025-08-16 09:30 | FOOT_PTH ---
PATIENT: FLEX WOOTEN [place] [facility] [id number] AGE/SX: 65/F ROOM: RE08/16/[address]: Dr. Rafi Berry DPM : 1960 BED: DIS: 08/16/2025 SPEC #: [id number] RECD: 08/16/25 11:47 STATUS: SARAH RECesar #: [id number] NEENA: 08/16/25 09:[address]: Rafi Berry DEPT: SURGICAL PATHOLOGY RECD BY: Axel Guillermo ENTERED: 08/16/25 14:13 SP TYPE: FOOT OTHR DR: Dr. Rica Padgett, DO Tissues: A - Bone of foot, NOS Procedures: Decalcification bone/plaque Surgery Specimen Level III HEADER OPERATION: Arthrodesis of left first interphalangeal joint PRE-OP DIAGNOSIS: Hallux malleus with arthritis TISSUE SUBMITTED: A- Left foot first digit bone MICROSCOPIC DIAGNOSIS A. Left foot, 1st digit, arthrodesis with debridement: - Articualr bone with reactive/degenerative changes. - Fatty marrow. MICROSCOPIC DESCRIPTION Slides are reviewed. GROSS DESCRIPTION A. Received in formalin labeled with the patient's name and date of . Designated as left foot first digit bone is a 3.1 x 2.8 x 1.3 cm aggregate of hoang-pink to yellow, irregular bone and tissue fragments. Equipment Engineering Technician sections are submitted in 1 cassette, following decalcification. [place] 08/16/2025 CPT:45738,82658
--- NOTE | 2025-08-16 09:45 | RAD_ITS ---
PROCEDURE: FOOT MIN 3 VIEWS 08/16/2025 REASON FOR EXAM: ARTHRODESIS 1ST INTERPHILANGEAL JOINT TECHNIQUE: Procedure Code: RADFO Modality: DX Procedure: FOOT MIN 3 VIEWS. Intraoperative fluoroscopic services provided for arthrodesis of the 1st interphalangeal joint. Fluoroscopy: 1 minute and 56 seconds. Radiation dose: 0.72 mGy. COMPARISON: February 17, 2024. FINDINGS: Intraoperative fluoroscopic services provided for arthrodesis of the distal interphalangeal joint of the toe. RAD/Foot min 3 Views IMPRESSION: Intraoperative fluoroscopic services provided for arthrodesis of the distal int erphalangeal joint of the great toe. Reading Location: [facility]
[2025-08-16] MEDS: Cefazolin 1 GM/5 ML Vial 3 GM IV (10:00)
--- NOTE | 2025-08-16 10:02 | PCM.DC ---
Discharge Instructions DC O2, CPAP, BIPAP needs Home O2 Discharge instructions: No Dressing / Incision Discharge Activity: May Not Drive Weight Bearing Status: No weight bearing (No weightbearing left foot) Keep extremity elevated above heart level: Operative Extremity (Keep left foot elevated for at least 50 minutes of every hour using pillows) Dressing / Incision Call your doctor if your incision/area has: Continuous Slow Oozing, Sudden Increased Bleeding, Increased Pain/ Swelling and Foul Smelling Discharge Call your doctor if you observe: Fever of 101 or Higher, Shortness of breath, Chest pain, Increased palpitations (irregular heartbeat), Calf discomfort and Uncontrolled pain Change Dressing in: do not change dressing Remove Dressing in: do not remove dressing Cleanse incision/area with: Keep Dressing Clean & Dry Follow Up Care Please Follow Up With: Rafi Berry DPM When: next week in office, but sooner if needed. Call Dr. Berry over weekend if needed: [phone] Test Results: Test results from this visit will be discussed in further detail at your follow-up appointment, if applicable. Discharge Plan Admission Attending Provider: Rafi Berry Primary Care Provider: Rica Padgett Instructions Print Language: Citizen Of [place] Discharge Orders/Prescriptions Prescriptions: Continued methotrexate sodium 2.5 mg tablet 20 mg PO FR cholecalciferol (vitamin D3) 25 mcg (1,000 unit) capsule 25 mcg PO DAILY lorazepam 2 mg tablet 1 mg PO DAILY (DME) [employer] Prema 3 Plus Sensor Device See Rx Instructions .Route Qty: 6 1RF Rx Instructions: As directed escitalopram oxalate 20 mg tablet 20 mg PO DAILY Qty: 90 1RF gabapentin 100 mg capsule 100 mg PO TID 90 Days Qty: 270 1RF sumatriptan succinate 50 mg tablet 100 mg PO Q2H PRN (Reason: migraine headache) hydroxyzine HCl 25 mg tablet 50 mg PO QHS omeprazole 40 MG capsule 40 mg PO DAILY Patient Comments: ACID REFLEX levothyroxine 50 MCG tablet 50 mcg PO DAILY atenolol 25 MG tablet 25 mg PO DAILY leucovorin calcium 10 MG tablet 5 mg PO FR folic acid 1 mg Tablet 1 mg PO BREAKFAST Qty: 30 0RF oxycodone-acetaminophen 5-325 mg tablet 1 tab PO BID PRN (Reason: pain) fenofibrate nanocrystallized 48 mg Tablet 48 mg PO DAILY 30 Days Qty: 30 0RF tizanidine 4 mg tablet 2 mg PO TID PRN (Reason: Muscle spasm) 3 Days Qty: 0 0RF ropinirole 1 mg tablet 1 mg PO BID clonidine HCl 0.1 mg tablet 0.1 mg PO BID Patient Comments: take 1 tablet by mouth three times a day if needed for anxiety or TREMOR(S) insulin glargine [Lantus Solostar U-100 Insulin] 100 unit/mL (3 mL) insulin pen 66 unit subcut DAILY trazodone 50 mg tablet 50 mg PO QHS furosemide [Lasix] 40 mg tablet 40 mg PO PRN PRN (Reason: edema) Rx Instructions: 3lbs weight gain in 24 hrs, 5lbs in a week or less, significant worsening in your shortness of breath or swelling insulin lispro [Humalog KwikPen Insulin] 100 unit/mL insulin pen 30 unit subcut TIDWMEAL MDD 130 Qty: 117 3RF Rx Instructions: plus sliding scale 180 +4; 210 +6; 240 +10; 280 +14 Trulicity 1.5 mg/0.5 mL pen injector 1.5 mg subcut QWEEK Qty: 2 4RF Referrals / Follow Up: Rica Padgett DO [Primary Care Provider, Family Practice] Disposition Disposition (needs filled in before D/C Order can be placed): Home, Self Care
[2025-08-16] MEDS: Midazolam 2 MG/2 ML Syringe IV (10:03)
[2025-08-16] MEDS: Lidocaine 1% (5 ml sdv) 5 ML Vial IV (10:08)
[2025-08-16] MEDS: fentaNYL 100 MCG/2 ML Ampul IV (10:18)
--- NOTE | 2025-08-16 11:37 | OP.PCM_ITS ---
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
--- NOTE | 2025-08-16 11:37 | PCM.OPRPT ---
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 Post-Operative Diagnosis: Same Surgery/Procedure Performed: Arthrodesis left 1st toe interphalangeal joint crowd controller: Yes Engineer Chief: Tasks completed by first beater: Retracting Type of Anesthesia: Local MAC RN Documented Start/Stop Times: Operation Date: 08/16/25 09:30 Case Time Into Pre-Op 08/16/25 08:04 Out of Pre-Op 08/16/25 09:55 Anesthesia Start 08/16/25 10:00 Into Room 08/16/25 10:00 Procedure Start 08/16/25 10:21 Procedure End 08/16/25 11:32 Anesthesia End 08/16/25 11:36 Out of Room 08/16/25 11:36 Into Recovery 08/16/25 11:38 Into Phase II Recovery 08/16/25 13:16 Out of Recovery 08/16/25 13:16 Procedure Start Time: 10:21 Procedure Stop Time: 11:32 Select all DRAINS/GRAFTS/IMPLANTS that apply: Implanted device Implanted device details: Oscar partially threaded cannulated 4.0 screw Estimated Blood Loss: 2mL Specimen collected: Yes Description of specimen(s) removed: Bone from left 1st toe sent to pathology Description of surgery: Indications: Patient is a 65 year old female with contracture deformity of left 1st toe at level of the interphalangeal joint (IPJ), it is very stiff, causing symptoms greatly limiting her ability to be active despite nonsurgical management. She has elected to proceed with surgical intervention of 1st toe IPJ arthrodesis surgery. This was discussed with her in great detail. Reviewed the procedure, possible benefits vs risks, goals and expectations. She expressed understanding and agreement. The consent forms were reviewed with her and she freely signed them. Operative Procedure: The patient was brought back to the operating room and was placed on the operating room table in the supine position. The patient was carefully secured to the operating room table with a safety belt around her waist. The patient received 3g of IV ancef for antibiotic prophylaxis. A well padded pneumatic tourniquet was applied around her left ankle. The patient received MAC anesthesia per the anesthesia team. The overlying skin of the 1st ray on patient's left foot was cleansed with 70% Isopropyl alcohol and a total of 10mL of 0.5% Bupivacaine plain was given as a local nerve block to the site. The patient's left foot was scrubbed, prepped and draped in the usual aseptic fashion. A timeout was performed and the patient was properly identified and the surgical plan was confirmed. Further attention was directed to the patient's left 1st toe and again there was noted to be significant hallux malleus deformity contracture at the level of the IPJ. The left foot was elevated for several minutes and the left ankle pneumatic tourniquet was inflated to 250mmHg. A linear longitudinal skin incision was made overlying the left 1st toe IPJ. Sharp dissection was completed down to the 1st IPJ capsule and it was partially reflected off of the head of the proximal phalanx and base of the distal phalanx of the 1st toe. The extensor hallucis longus tendon was retracted out of the way. It was noted there were significant adhesions of the joint. These were released using a 15 blade. The head of the proximal phalanx was resected using a powered sagittal saw, this was needed in order to reduce the 1st toe into rectus position. The cartilage on the base of the distal phalanx of the 1st toe was resected using a bone curette, and a powered sagittal saw. The fusion ends were fenestrated multiple times to spring fitter helper fusion using a small drill. The toe was placed in proper alignment, and was fixated using rigid open reduction internal fixation technique using one 4.0mm Harvey partially threaded cannulated screw. Clinically the toe was in excellent alignment and very stable with bone to bone contact. Proper placement and alignment was checked on intra operative fluoroscopy and was confirmed. The site was flushed out with copious amounts of normal saline solution. The capsule was reapproximated using 3-0 Vicryl, the subcutaneous tissue was reapproximated using 3-0 Vicryl and the skin was reapproximated using 3-0 Monocryl. An additional 10mL of 0.5% Bupivacaine plain was given as a local nerve block to left 1st ray on left foot. A dressing was applied which consisted of Betadine soaked adaptic, 4x4 gauze, Kerlix and dedrick dressing. The pneumatic tourniquet was deflated (total tourniquet time was 65 minutes) with dressing application and there was immediate return of warmth and perfusion to the patient's left foot with CFT < 2 seconds to all toes. The patient tolerated the above procedure and anesthesia well with no complications. Post operative orders were placed, post operative instructions have been reviewed with patient, and she was given verbal and written discharge instructions again. She already has pain medication at home per pain management. She is going to remain nonweightbearing left foot and keep left foot elevated for at least 50 minutes of every hour. She is going to follow up with me next week in office, but sooner if needed. Surgical Findings: As noted above Complications Complications: No
--- NOTE | 2025-08-16 12:00 | RAD_ITS ---
PROCEDURE: FOOT MIN 3 VIEWS 08/16/2025 REASON FOR EXAM: POST OP PODIATRY SURGERY TECHNIQUE: Procedure Code: RADFO Modality: DX Procedure: FOOT MIN 3 VIEWS Laterality: Left COMPARISON: 08/16/2025 fluoroscopy FINDINGS: Bones: No visible fracture. No suspicious bone lesion. Arthrodesis of the 1st interphalangeal joint. Joints: Normal alignment. Mild degenerative changes. Soft tissues: Moderate soft tissue swelling of the left 1st digit. RAD/Foot min 3 Views IMPRESSION: Arthrodesis of the left 1st interphalangeal joint with associated soft tissue s welling. Reading [facility]
--- NOTE | 2025-08-16 12:44 | PCM.POST.ANE ---
Anesthesia: Postop Eval I Current Vital Signs Temperature: 98.1 F Pulse Rate: 67 Blood Pressure: 120/67 Respiratory Rate: 16 Pulse Ox: 94 Oxygen Delivery Method: Nasal Cannula Oxygen Flow Rate (L/min): 2 Assessment Airway patent: Yes Spontaneous unlabored respirations: Yes Mental status: Awake and Calm nausea: No Vomiting: No Anesthesia Complication: No Fluid Hydration Crystalloid volume administer (ml): 800 Total IV fluid infused: 800 Progress Note Anesthesia document: Postop Eval 1 completed: Yes
--- NOTE | 2025-08-16 20:18 | POSTOPAN2_ITS ---
Anesthesia Postop Eval I Sum Postop Eval Completion status Anesthesia document: Postop Eval 1 completed: Yes Anesthesia Postop Eval I Summary Anesthesia Postop Eval I Summary: Anesthesia Postop Eval I: Assessment Summary Airway patent Yes 08/16/25 12:45 FRAME PULLEY MORTISING MACHINE OPERATOR.[email or web address] Spontaneous unlabored Yes 08/16/25 12:45 FRAME PULLEY MORTISING MACHINE OPERATOR.[email or web address] respirations Mental status Awake,Calm 08/16/25 12:45 FRAME PULLEY MORTISING MACHINE OPERATOR.[email or web address] nausea No 08/16/25 12:45 FRAME PULLEY MORTISING MACHINE OPERATOR.[email or web address] Vomiting No 08/16/25 12:45 FRAME PULLEY MORTISING MACHINE OPERATOR.[email or web address] Anesthesia Postop Eval I: Fluid Summary Crystalloid volume administer 800 08/16/25 12:45 FRAME PULLEY MORTISING MACHINE OPERATOR.[email or web address] (ml) Colloids volume administered ( ml) Blood Product volume administered (ml) Total IV fluid infused 800 08/16/25 12:45 FRAME PULLEY MORTISING MACHINE OPERATOR.[email or web address] Anesthesia Postop Eval I: Summary Notes Anesthesia Complication No 08/16/25 12:45 FRAME PULLEY MORTISING MACHINE OPERATOR.[email or web address] Anesthesia Complication Comment: Post-operative progress note Anesthesia: Postop Eval II Evaluation Mental status: Awake and Calm Pain Level: 1 nausea: No Vomiting: No Complications Anesthesia Complication: No
--- NOTE | 2025-08-16 20:18 | PCM.POSTANE2 ---
Anesthesia Postop Eval I Sum Postop Eval Completion status Anesthesia document: Postop Eval 1 completed: Yes Anesthesia Postop Eval I Summary Anesthesia Postop Eval I Summary: Anesthesia Postop Eval I: Assessment Summary Airway patent Yes 08/16/25 12:45 [email or web address] [email or web address] Spontaneous unlabored Yes 08/16/25 12:45 [email or web address] [email or web address] respirations Mental status Awake,Calm 08/16/25 12:45 [email or web address] [email or web address] nausea No 08/16/25 12:45 [email or web address] [email or web address] Vomiting No 08/16/25 12:45 [email or web address] [email or web address] Anesthesia Postop Eval I: Fluid Summary Crystalloid volume administer 800 08/16/25 12:45 [email or web address] [email or web address] (ml) Colloids volume administered ( ml) Blood Product volume administered (ml) Total IV fluid infused 800 08/16/25 12:45 [email or web address] [email or web address] Anesthesia Postop Eval I: Summary Notes Anesthesia Complication No 08/16/25 12:45 [email or web address] [email or web address] Anesthesia Complication Comment: Post-operative progress note Anesthesia: Postop Eval II Evaluation Mental status: Awake and Calm Pain Level: 1 nausea: No Vomiting: No Complications Anesthesia Complication: No
== END 2025-08-16 14:06 | disposition home or self-care (01) ==
LOC: SDC 08:03 → AC 08:04
PROVIDERS: PCP Family Medicine; Referring Provider Podiatrist; Visit Provider Podiatrist
PROC: (CPT 28755; principal; 2025-08-16 09:15)
DX: M20.42 Other hammer toe(s) (acquired), left foot (principal); I11.0 Hypertensive heart disease with heart failure; I50.42 Chronic combined systolic (congestive) and diastolic (congestive) heart failure; E11.40 Type 2 diabetes mellitus with diabetic neuropathy, unspecified; Z79.4 Long term (current) use of insulin; M19.072 Primary osteoarthritis, left ankle and foot; M24.575 Contracture, left foot; Z79.85 Long-term (current) use of injectable non-insulin antidiabetic drugs; Z79.899 Other long term (current) drug therapy; Z87.891 Personal history of nicotine dependence
CPT/HCPCS: 28755; 01480; 73630; 76000; 82962; 88304; 88311; C1713; J2405

== ENCOUNTER 2025-08-23 13:00 | Day surgery (SDC) | payer MEDICARE, OTHER, SELFPAY ==
--- NOTE | 2025-08-20 16:32 | PAT.ANESEVAL ---
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 When Was Last Pacemaker Check QUESTION #4 FULL TEXT: You/Your Family Experience fever (hyperthermia) with Anesthesia Last Oral Intake Last Oral intake: Last Oral Intake NPO since Meds taken in AM with sips of water? Meds patient instructed to take am of surgery PONV PONV - supervisor [employer] fabrication: PONV - supervisor [employer] Female Yes 08/20/25 13:43 HX of Motion Sickness No 08/20/25 13:43 HX of N/V After Surgery No 08/20/25 13:43 Non-Smoker Yes 08/20/25 13:43 Duration of Surgery greater Yes 08/20/25 13:43 than 60 minutes Number of Risk Factors 3 08/20/25 13:43 PONV Score Moderate Risk 08/20/25 13:43 Height & Weight Height & Weight: Anesthesia: Height & Weight Height 5 ft 4 in 08/16/25 08:20 Respiratory Assessment Respiratory Assessment - supervisor [employer] fabrication: Respiratory Tract Infection Hx - supervisor [employer] fabrication Hx Respiratory Tract Infection No 08/20/25 13:43 STOP Sleep Apnea STOP Sleep Apnea - supervisor [employer] fabrication: STOP Sleep Apnea - supervisor [employer] Hx Hypertension Yes 08/20/25 13:43 Hx Sleep Apnea Yes: ASV 08/20/25 13:43 CPAP Yes 08/20/25 13:43 BIPAP No 08/20/25 13:43 Do you snore loudly (louder than talking or can be heard Do you often feel tired/ fatigued/ sleepy during daytime? Has anyone observed you stop breathing during sleep? STOP Results Positive 08/20/25 13:43 QUESTION #5 FULL TEXT : Do you snore loudly (louder than talking or can be heard through closed doors)? 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 Specify any problems Hx of Preganancy in last 3 No 08/20/25 13:43 Months Nurse Filling Out Transfusion VCHRISTIN 08/20/25 13:43 & Questions: Date: 08/20/25 08/20/25 13:43 Time: 13:45 08/20/25 13:43 Patient unable to answer at this time (ie. confused, unrespo /Reproduction History /Reproductive History - supervisor [employer]: /Reproductive Hx- supervisor [employer] Hx Now No 08/20/25 13:43 Gestational Age (in weeks): EDC: Hx Hx Para Hx Section SAB No 08/20/25 13:43 Does the father of the baby or his family experience fever w Father of the baby Malignant Hypertension history comment [facility] Medical History (Updated 08/20/25 @ 13:43 by Angelina Blancas) Wears glasses Post-menopausal MRSA infection Adopted Insulin dependent diabetes mellitus Ambulates with cane Uses wheelchair DVT (deep venous thrombosis) Pulmonary embolism Restless legs Back pain Injury of back Dietary restriction Gastric reflux Former smoker Shortness of breath on exertion Leg cramps History of pain when walking History of edema History of echocardiogram History of stress test Cardiology follow-up encounter Central sleep apnea treated with adaptive servo-ventilation (ASV) device (HFpEF) heart failure with preserved ejection fraction Essential (primary) hypertension Hypothyroidism Anxiety disorder, unspecified Depressive 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 PTSD (post-traumatic stress disorder) Fibromyalgia Arthritis DVT (deep venous thrombosis) Back pain On home oxygen therapy Implantable intrathecal infusion pump present Home Medications ?Medication ?Instructions ?Recorded ?Last Taken ?Type omeprazole 40 mg capsule,delayed 40 mg PO DAILY GERD 08/30/13 08/16/25 History release levothyroxine 50 mcg tablet 50 mcg PO DAILY thyroid 10/21/17 08/16/25 History atenolol 25 mg tablet 25 mg PO DAILY heart 05/18/19 08/16/25 History methotrexate sodium 2.5 mg tablet 20 mg PO FR fibromyalgia 08/19/20 03/24/25 History leucovorin calcium 10 mg tablet 5 mg PO FR supplement 12/08/20 03/24/25 History cholecalciferol (vitamin D3) 25 25 mcg PO DAILY supplement 09/13/22 03/24/25 History mcg (1,000 unit) capsule folic acid 1 mg tablet 1 mg PO BREAKFAST supplement #30 03/03/24 03/24/25 Rx tabs oxycodone-acetaminophen 5 mg-325 1 tab PO BID PRN pain 07/27/24 03/24/25 History mg tablet fenofibrate nanocrystallized 48 mg 48 mg PO DAILY cholesterol 30 days 03/18/25 03/24/25 Rx tablet #30 tabs tizanidine 4 mg tablet 2 mg (1/2 x 4 mg) PO TID PRN 03/18/25 03/24/25 Rx Muscle spasm 3 days #0 tabs ropinirole 1 mg tablet 1 mg PO BID restless legs 03/25/25 08/16/25 History clonidine HCl 0.1 mg tablet 0.1 mg PO BID Anxiety/tremors 04/03/25 08/16/25 History blood-glucose sensor (FreeStyle #6 ea 04/22/25 Unknown Rx Prema 3 Plus Sensor device) lorazepam 2 mg tablet 1 mg PO TID PRN 06/03/25 Unknown History hydroxyzine HCl 25 mg tablet 50 mg PO QHS 07/30/25 Unknown History sumatriptan succinate 50 mg tablet 100 mg PO Q2H PRN migraine headache 07/30/25 Unknown History escitalopram oxalate 20 mg tablet 20 mg PO DAILY for depressive 08/06/25 08/16/25 Rx disorder #90 TABLETS gabapentin 100 mg capsule 100 mg PO TID nerve pain 90 days 08/06/25 08/16/25 Rx #270 caps insulin lispro 100 unit/mL 30 unit (0.3 mL) subcut TIDWMEAL 08/06/25 Unknown Rx subcutaneous pen (Humalog KwikPen diabetes #117 mL (U-100) Insulin) furosemide 40 mg tablet (Lasix) 40 mg PO PRN PRN edema 08/12/25 Unknown History insulin glargine 100 unit/mL (3 66 unit subcut DAILY diabetes 08/12/25 Unknown History mL) subcutaneous pen (Lantus mellitus Solostar U-100 Insulin) trazodone 50 mg tablet 50 mg PO QHS 08/12/25 Unknown History dulaglutide 1.5 mg/0.5 mL 1.5 mg (0.5 mL) subcut QWEEK #2 mL 08/15/25 08/05/25 Rx subcutaneous pen injector (Trulicity) PAIN PUMP (INFORMATIONAL USE 08/20/25 Unknown History ONLY-PATIENT HAS HYDROMORPHONE PUMP) Allergy/AdvReac Type Severity Reaction Status Date / Time amitriptyline Allergy Intermediate flushing Verified 08/20/25 13:29 niacin Allergy Itching Verified 08/20/25 13:29 venlafaxine AdvReac Severe Vomiting Verified 08/20/25 13:29 metformin AdvReac Intermediate Diarrhea Verified 08/20/25 13:29 Family History Sister Breast cancer Diabetes Kidney disease Mother Diabetes Heart disease Other Arthritis Surgical History History of esophagogastroduodenoscopy (EGD) Hx of colonoscopy Hx of foot surgery H/O arthroplasty History of bunionectomy of both great toes History of lumbar fusion History of total right knee replacement Hx of surgical procedure Hx of arthroscopic knee surgery History of carpal tunnel release Hx of hysterectomy History of back surgery Hx of total knee replacement hx of plantar fasciotomy Social History household members: spouse Smoking Status: Former smoker alcohol intake: never substance use type: does not use caffeine: No what type of physical activity do you participate in: none seatbelt use: always do you feel safe at home: Yes additional social history: [id number] at [employer] Patient is disabled Audit: Pertinent Findings Pertinent Findings EKG Perinent findings: 03/28/2025. Normal sinus rhythm. Inferior infarct, age undetermined. Prolonged QT. Stress test pertinent findings: 05/15/2025. 71% ejection fraction. Mildly reduced perfusion noted in the anterior septal wall at rest and with stress.. Previous infarct cannot be completely excluded. Normal myocardial perfusion stress test. Echo (EF%) pertinent findings: 03/25/2025. EF of 65%. PASP is 30 mmHg. Consult pertinent findings: July 30, 2025. Blue SPEARS 1. Shortness of breath on exertion-no changes to medication. Patient is to work on lifestyle changes including exercise and weight loss. Follow-up next visit to determine if cardiac testing is recommended. Recommendation Anesthesia Recommendation Anesthesia recommendation: OPTIMIZED for anesthesia
[2025-08-23] VITALS (10 sets, daily range): BP systolic 113–147; BP diastolic 54–95; PULSE 60–77; RESP 14–18; TEMP 36.3–36.6; O2SAT 92–95; BMI 46.0
--- OUTSIDE RECORDS SUMMARY | 2025-08-23 13:21 | XMS RPT_ITS | CCD ---
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 Rica Padgett Primary Care Provider Dr. Roscoe Helton Attending Provider [phone] Dr. Pj Mahoney Referring Provider Rica Padgett DO Primary Care Provider NICOLÁS AGGARWAL Referring Unavailable RICA PADGETT Primary Care Unavailable NICOLÁS AGGARWAL Attending Unavailable RICA PADGETT Primary Care Unavailable Dr. Rica Padgett Primary Care Provider Dr. Rica Padgett Referring Provider [phone] SAGE Ruiz Attending Provider Dr. Rica Padgett Primary Care Provider Dr. Rica Padgett Referring Provider SAGE Ruiz Attending Provider [phone] Marie Dee Emergency Provider Dr. Adebayo Mckeon Admit Provider Dr. Adebayo Mckeon Attending Provider Dr. Adebayo Mckeon Other Provider Dr. Tre Anderson Attending Provider Dr. Tre Anderson Other Provider Dr. Matt Oglesby Attending Provider Malys DO, Rica Alonso Primary Care Provider [phone] LAURO FALCON, DR RICA Alonso Primary Care Physician PJ MAHONEY Attending Unavailable MALYS DO, DR RICA Alonso Primary Care Unavailable PJ MAHONEY Attending Unavailable AMISHYS DO, DR RICA Alonso Primary Care Unavailable PJ MAHONEY Attending Unavailable LAURO FALCON, DR RICA Alonso Primary Care Unavailable PJ MAHONEY Admitting Unavailable MATTHEW HERNÁNDEZ PA-C Consulting Unavailable PJ MAHONEY Referring Unavailable ERIC METAL DRILL OPERATOR-CUSTOMER SUPPORT CONSULTANT, RICA M Consulting Unavaila ble Malys DO, Rica Flex Primary Care Provider RENITA MIJARES Attending Unavailable RENITA MIJARES Referring Unavailable MALYS, RICA FLEX Primary Care Unavailable Chip, Erin Primary Care Provider Chip, Erin Primary Care Provider Malys, Rica Primary Care Unavailable Sibilia Deuce V Referring Unavailable Sibilia Deuce V Attending Unavailable Malys, Irca Primary Care Unavailable Tre Flores Attending Unavailable Malys, Rica Primary Care Unavailable Rafi Berry Attending Unavailable Rafi Berry Referring Unavailable Malys, Rica Primary Care Unavailable Parviz Gupta Attending Unavailable Morgan Juárez Consulting Unavailable Morgan Juárez Admitting Unavailable Tarik Huizar Consulting Unavailable Adeli, Amir Consulting Unavailable Hinduja, Licha Consulting Unavailable Primitivo, Doreen Consulting Unavailable Zha, Sunitha Consulting Unavailable Jimbo, Anup Consulting Unavailable Maude, Avelina Consulting Unavailable BitHector oconnell Consulting Unavailable Perry Carlin Consulting Unavailable Akhil Hayes Consulting Unavailable Rosa M Orta Consulting Unavailable Payam West Consulting Unavailable Yamini Marquez Consulting Unavailable Bashir Jeter Consulting Unavailable Charles Christianson Consulting UnavailBud Burgess Consulting Unavailable Danielle, Rami Consulting Unavailable Doris, Allen Consulting Unavailable Lauren Montez Consulting Unavailable Ana Orellana Consulting Unavailable Malys, Rica Attending Unavailable Malys, Rica Referring Unavailable Malys, Rica Primary Care Unavailable Malys, Rica Referring Unavailable Malys, Rica Attending Unavailable Malys, Rica Primary Care Unavailable Malys, Rica Primary Care Unavailable Rafi Berry Attending Unavailable Malys, Rica Primary Care Unavailable jP Lee Attending Unavailable Malys, Rica Primary Care Unavailable Malys, Rica Attending Unavailable Malys, Rica Referring Unavailable David Caruso Admitting Unavailable Justin, Tre Attending Unavailable David Caruso Consulting Unavailable Malys, Rica Primary Care Unavailable Jopperi, Tre Consulting Unavailable Malys, Rica Primary Care Unavailable Parviz Gupta Attending Unavailable Morgan Juárez Consulting Unavailable Morgan Juárez Admitting Unavailable Alonso Parviz Consulting Unavailable Malys, Rica Primary Care Unavailable Chau Card Attending Unavailable Uday Stokes Referring Unavailable Uday Stokes Attending Unavailable Malys, Rica Primary Care Unavailable Rm Keating Attending Unavailable Malys, Rica Primary Care Unavailable Matt Oglesby Attending Unavailable Mendel, Matt Referring Unavailable Malys, Rica Primary Care Unavailable Rafi Berry Attending Unavailable Rafi Berry Referring Unavailable Malys, Rica Primary Care Unavailable Malys, Rica Primary Care Unavailable Rafi Berry Attending Unavailable Rafi Berry Referring Unavailable Malys, Rica Referring Unavailable Fabiola Ruiz Attending Unavailable Malys, Rica Primary Care Unavailable Malys, Rica Primary Care Unavailable Pj Lee Attending Unavailable Malys, Rica Referring Unavailable MendelMatt trejo Attending Unavailable Malys, Rica Primary Care Unavailable David Caruso Attending Unavailable David Caruso Admitting Unavailable David Caruso Consulting Unavailable Tre Anderson Attending Unavailable Malys, Rica Primary Care Unavailable Malys, Rica Primary Care Unavailable Autumn Hernandez Attending Unavailable Jopperi, Tre Admitting Unavailable Jopperi, Tre Consulting Unavailable Martin Trejo Attending Unavailable Basali Ayman Referring Unavailable Malys, Rica Primary Care Unavailable Malys, Rica Primary Care Unavailable Malys, Rica Referring Unavailable Joseph, Fabiola Attending Unavailable Malys, Rica Referring Unavailable Malys, Rica Primary Care Unavailable Diogo, Michi Attending Unavailable Malys, Rica Referring Unavailable Diogo, Michi Attending Unavailable Malys, Rica Primary Care Unavailable Malys, Rica Referring Unavailable Demiter, Jeffrey Attending Unavailable Malys, Rica Primary Care Unavailable Pj Lee Attending Unavailable Malys, Rica Primary Care Unavailable Malys, Rica Referring Unavailable Diogo, Michi Attending Unavailable Malys, Rica Primary Care Unavailable Mendel, Matt Attending Unavailable Mendel, Maynard Consulting Unavailable Mendel, Maynard Referring Unavailable Malys, Rica Primary Care Unavailable Malys, Rica Referring Unavailable Demiter, Jeffrey Attending Unavailable Malys, Rica Primary Care Unavailable Malys, Rica Primary Care Unavailable Malys, Rica Referring Unavailable Joseph, Fabiola Attending Unavailable Malys, Rica Primary Care Unavailable Mendel, Maynard Attending Unavailable Malys, Rica Primary Care Unavailable Mendel, Matt Attending Unavailable Malys, Rica Primary Care Unavailable Koram, Autumn Rachael Attending Unavailable Tre Anderson Consulting Unavailable Tre Anderson Admitting Unavailable Koram, Autumn Rachael Consulting Unavailable Morgan Juárez Attending Unavailable Tarik Huizar Consulting Unavailable Adeli, Leobardo Consulting Unavailable Hinduja, Licha Consulting Unavailable Primitivo, Doreen Consulting Unavailable Zha, Sunitha Consulting Unavailable Jimbo, Anup Consulting Unavailable Maude, Avelina Consulting Unavailable Hector Rutledge Consulting Unavailable Perry Carlin Consulting Unavailable Akhil Hayes Consulting Unavailable Rosa M Orta Consulting Unavailable Paaym West Consulting Unavailable Yamini Marquez Consulting Unavailable RidBashir bal Consulting Unavailable Zagaro, Mhd Castro Consulting UnavailBud Burgess Consulting Unavailable Danielle, Rami Consulting Unavailable Lux Georgel Consulting Unavailable Lauren Montez Consulting Unavailable Ana Orellana Consulting Unavailable Malys, Rica Primary Care Unavailable Tre Anderson Attending Unavailable Pj Lee Attending Unavailable Malys, Rica Primary Care Unavailable Allergies Allergy Classification Reported Allergen(s) Allergy Type Date of Onset Reaction(s) Facility Anti-Epileptic Agents (2 sources) gabapentin Drug Allergy 5 Mental Status [facility] Work Phone: Niacin (1 source) Niacin Drug Allergy 7 Rash, Hives, Itching [facility] (2 sources) gabapentin Drug Allergy 6 hives, light headed [facility] (1 source) gabapentin Drug Allergy Hives/Urticaria [facility] (8 sources) Cephalexin Drug Allergy 2 Other [facility] (16 sources) Niacin; Translations: [NIACIN] Drug Allergy 7 Rash, Hives, Itching [facility] (5 sources) gabapentin; Translations: [GABAPENTIN] Drug Allergy 5 Mental Status [facility] Work Phone: (2 sources) metFORMIN Drug Allergy 3 Diarrhea [facility] (3 sources) venlafaxine; Translations: [VENLAFAXINE] Drug Allergy 4 [facility] (2 sources) Niacin Drug Allergy 3 [facility] (1 source) Amitriptyline Drug Allergy 5 [facility] Repository (1 source) Cephalexin Drug Allergy 5 [facility]ository (1 source) metFORMIN Drug Allergy 5 [facility]ository (1 source) Niacin Drug Allergy 5 [facility] (1 source) venlafaxine Drug Allergy 5 [facility] Repository Medications Current Medications Medication Drug [...] 1 tab po q6h as needed HYDROCODONE-ACETAMINOPHEN [id number] Rica Padgett DO acetaminophen 325 mg / [...] TABLET PO EVERY 4 HOURS NEEDED 30 3 October 28, 2017 12:00am January 17, 2018 [...] day Quantity: 40 Refills: 0 Ordered: 21-May-2021 Danny Hendersonine Start: 21-May-2021 End: 30-May-2021 Generic Substitution Allowed [...] Start: 12-15-2019 take 4 tablets by mo [facility] at bedtime Citalopram (Celexa) 10 mg tablet [...] affected area daily as needed DICLOFENAC SODIUM [id number] Rica Padgett, Diclofenac Sodiu m (Voltaren) 1 [...] MG TABS 1 po daily HYDROXYZINE HCL [id number] Rica Gavin WellingtonDO [place] Start: 08-30-2013 take 100 mg by mouth [...] 20 MG TABS 1 po daily RIVAROXABAN [id number] Adebayo Saunders DO take 2 tablets by mo [facility] once daily rivaroxaban (XARELTO) 10 [...] Active Start: 12-08-2015 take 1 tablet by [facility] three times daily tiZANidine 4 mg oral [...] Drug Class(es) Dates Sig (Normalized) Sig (Original) [id number] actuat albuterol 0.09 mg/actuat metered dose [...] on above: Take by mouth. estrogens, conjugated (alf) 0.625 mg/ml vaginal cream (8 sources) Estrogen [...] MG TABS 1 po daily LISINOPRIL-HYDROCHLOROTH IAZIDE [id number] Rica Padgett DO Start: 12-06-2014 End: 09-17-2022 [...] diastolic (congestive) heart failure] Onset: 5 Chronic Coronary atherosclerosis and other heart disease (1 source) Atherosclerotic heart disease of [place] coronary artery without angina pectoris; Translations: [Atherosclerotic heart disease of [place] coronary artery without angina pectoris] Onset: 5 Chronic Diabetes mellitus with complications [...] Translations: [Hypertensive disorder] Onset: 6 12-08-2015 Chronic Headache; including migraine (1 source) Headache; [...] Episodic Other connective tissue disease (1 source) Pain in left lower leg; Translations: [Pain in left lower leg] Onset: 5 Episodic Other gastrointestinal disorders (2 [...] abnormalities] 09-17-2022 Episodic Other lower respiratory disease (2 [...] conditions (not mental disorders or infectious disease) (2 sources) Breast neoplasm screening status; Translations: [Encounter for screening mammogram for malignant neoplasm of breast] Onset: 5 Episodic Phlebitis; thrombophlebitis and thromboembolism (8 sources) [...] toxic encephalopathy; Translations: [Other toxic encephalopathy] Onset: Viral infection (5 sources) Disease caused by 2019-nCoV; Translations: [COVID-19] 09-21-2022 Episodic Past or Other Problems Problem Classification Problem Date Documented Date Episodic/Chronic Acquired foot deformities (11 sources) Talipes planus; Translations: [Flat foot [pes planus] (acquired), left foot] Onset: 05-19-2022 Episodic Fracture of lower limb (2 sources) Stress fracture, left foot, subsequent encounter for fracture with delayed healing; Translations: [Stress fracture, left foot, initial encounter for fracture] Onset: 01-08-2025 Episodic Malaise and fatigue (2 sources) Fatigue; Translations: [Other fatigue] Onset: 12-08-2015 12-08-2015 Episodic Mood disorders (2 sources) Mood disorders Onset: 10-02-2022 Resolved: 10-02-2022 10-02-2022 Other aftercare (1 source) Other penitentiary (current) drug therapy; Translations: [Other long term care phlebotomist (current) drug therapy] Onset: 03-18-2025 Episodic Other injuries and conditions due to external causes (1 source) Encounter for examination and observation following other accident; Translations: [Encounter for examination and observation following other accident] Onset: 11-25-2024 Episodic Other lower respiratory disease (4 sources) Hypoxemia; Translations: [Hypoxemia] Onset: 08-27-2024 09-17-2022 Episodic Residual codes; unclassified (5 sources) Family history of diabetes mellitus; Translations: [Family history of diabetes mellitus] Onset: 12-31-2010 12-31-2010 Episodic Unclassified (3 sources) calcium calcifications 03-17-2022 Unclassified (3 sources) hx of plantar fasciotomy 03-17-2022 Urinary tract infections (2 sources) Acute cystitis without hematuria; Translations: [Acute cystitis without hematuria] Onset: 03-18-2025 Episodic Results Test Name Value Interpretation Reference Range Facility Venous Duplex US, Unilateral on 07-03-2025 Venous Duplex US, Unilateral Normal [facility] Endocrinology Visit Reporton 06-24-2025 Endocrinology Visit Report Normal [facility] MR/BMS.BPon 06-03-2025 MR/BMS.BP Normal [facility] Cardiology Visit Reporton Cardiology Visit Report Normal [facility] Culture, Anaerobic Any Sourc joe 05-15-2025 CUAN CELLULITIS LEFT FOOT No anaerobic bacteria isolated. Normal [facility] Comment on above: Performed By: #### M 100.2000, M100.4001, M100.3000 ####[facility] [address] [place], [address] Stress Reporton 05-15-2025 Stress Report Normal [facility] Basic Metabolic Profile (BMP )on 05-14-2025 BUN/CRE 17.0 RATIO Normal 06-17 [facility] Comment on above: Performed By: #### L 503.7505, L500.2500 ####[facility] [address] [place], [address] Calcium [Mass/Vol] 8.7 mg/dL Normal 7.6-11.0 [facility] Comment on above: Performed By: #### L 503.7505, L500.2500 ####[facility] [address] [place], [address] Chloride [Moles/Vol] 98 mmol/L Normal 98-108 [facility] Comment on above: Performed By: #### L 503.5965, L500.2500 ####[facility] [address] [place], [address] CO2 [Moles/Vol] 26.8 mmol/L Normal 21.0-32.0 [facility] Comment on above: Performed By: #### L 503.7505, L500.2500 ####[facility] [address] [place], [address] Creatinine [Mass/Vol] 0.75 mg/dL Normal 0.70-1.20 [facility] Comment on above: Performed By: #### L 503.7505, L500.2500 ####[facility] [address] [place], [address] GAP 13 Normal 5-15 [facility] Comment on above: Performed By: #### L 503.7505, L500.2500 ####[facility] [address] [place], [address] GFR/1.73 sq M.predicted among non-blacks MDRD (S/P/Bld) [Vol rate/Area] 87 mL/min/{1.73_m2} Normal >60 [facility] Comment on above: Result Comment: mL/m in/1.73m2 CKD-EPI Creatinine Equation (2020) Performed By: #### L 503.7505, L500.2500 ####[facility] [address] [place], [address] Glucose [Mass/Vol] 407 mg/dL High 70-99 [facility] Comment on above: Performed By: #### L 503.7505, L500.2500 ####[facility] [address] [place], [address] Potassium [Moles/Vol] 4.6 mmol/L Normal 3.3-5.1 [facility] Comment on above: Performed By: #### L 503.7505, L500.2500 ####[facility] [address] [place], [address] Sodium [Moles/Vol] 138 mmol/L Normal 133-145 [facility] Comment on above: Performed By: #### L 503.7505, L500.2500 ####[facility] [address] [place], [address] Urea nitrogen [Mass/Vol] 13 mg/dL Normal 4-19 [facility] Comment on above: Performed By: #### L 503.7505, L500.2500 ####[facility] [address] [place], [address] HIP, UNI W/ Pelvis 2-3 Views on 05-14-2025 HIP, UNI W/ Pelvis 2-3 Views Normal [facility] Pro- Brain NATRIURETIC PEPTI Sonia 05-14-2025 Natriuretic peptide B (Bld) [Mass/Vol] 253 pg/mL Normal <=900 [facility] Comment on above: Result Comment: Hear t Failure Unlikely: < 300 pg/mLHeart Failure Likely< 50 Years: > 450 pg/mL50-75 Years: > 900 pg/mL>75 Years: > 1800 pg/mL Performed By: #### L 503.7505, L500.2500 ####[facility] [address] [place], [address] Wound Cultureon 05-13-2025 WC Normal [facility] Comment on above: Performed By: #### M 100.1999, M100.4001, M100.3000 ####[facility] [address] [place], [address] Gram Stainon 05-10-2025 GS CELLULITIS LEFT FOOT Gram Stain No organisms seen No Epithelial cells Normal [facility] Comment on above: Performed By: #### M 100.2000, M100.4001, M100.3000 ####[facility] [address] [place], [address] Endocrinology Visit Reporton 04-22-2025 Endocrinology Visit Report Normal [facility] Cardiology Visit Reporton Cardiology Visit Report Normal [facility] 12 Lead EKGon 03-28-2025 12 Lead EKG Normal [facility] Basic Metabolic Profile (BMP )on 03-28-2025 BUN/CRE 20.3 RATIO High 10-20 [facility] Comment on above: Order Comment: 2ND R EDRAW Performed By: #### L 500.2500 ####[facility] [address] [place], [address] Calcium [Mass/Vol] 9.3 mg/dL Normal 7.6-11.0 [facility] Comment on above: Order Comment: 2ND R EDRAW Performed By: #### L 500.2500 ####[facility] [address] [place], [address] Chloride [Moles/Vol] 97 mmol/L Low 98-108 [facility] Comment on above: Order Comment: 2ND R EDRAW Performed By: #### L 500.2500 ####[facility] [address] [place], [address] CO2 [Moles/Vol] 27.3 mmol/L Normal 21.0-32.0 [facility] Comment on above: Order Comment: 2ND R EDRAW Performed By: #### L 500.2500 ####[facility] [address] [place], [address] Creatinine [Mass/Vol] 0.97 mg/dL Normal 0.70-1.20 [facility] Comment on above: Order Comment: 2ND R EDRAW Performed By: #### L 500.2500 ####[facility] [address] [place], [address] ECRCL 71.53 ml/min Normal 50-250 [facility] Comment on above: Order Comment: 2ND R EDRAW Performed By: #### L 500.2500 ####[facility] [address] [place], [address] GAP 13 Normal 5-15 [facility] Comment on above: Order Comment: 2ND R EDRAW Performed By: #### L 500.2500 ####[facility] [address] [place], [address] GFR/1.73 sq M.predicted among non-blacks MDRD (S/P/Bld) [Vol rate/Area] 65 mL/min/{1.73_m2} Normal >60 [facility] Comment on above: Order Comment: 2ND R EDRAW Result Comment: mL/m in/1.73m2 CKD-EPI Creatinine Equation (2020) Performed By: #### L 500.2500 ####[facility] [address] [place], [address] Glucose [Mass/Vol] 165 mg/dL High 70-99 [facility] Comment on above: Order Comment: 2ND R EDRAW Performed By: #### L 500.2500 ####[facility] [address] [place], [address] Potassium [Moles/Vol] 4.0 mmol/L Normal 3.3-5.1 [facility] Comment on above: Order Comment: 2ND R EDRAW Performed By: #### L 500.2500 ####[facility] [address] [place], [address] Sodium [Moles/Vol] 138 mmol/L Normal 133-145 [facility] Comment on above: Order Comment: 2ND R EDRAW Performed By: #### L 500.2500 ####[facility] [address] [place], [address] Urea nitrogen [Mass/Vol] 20 mg/dL High 4-19 [facility] Comment on above: Order Comment: 2ND R EDRAW Performed By: #### L 500.2500 ####[facility] [address] [place], [address] BUN/CRE 19.0 RATIO Normal 10-20 [facility] Comment on above: Performed By: #### L 500.2500, L503.7505, L501.4021 ####[facility] [address] [place], [address] Calcium [Mass/Vol] 8.8 mg/dL Normal 7.6-11.0 [facility] Comment on above: Performed By: #### L 500.2500, L503.7505, L501.4021 ####[facility] [address] [place], [address] Chloride [Moles/Vol] 96 mmol/L Low 98-108 [facility] Comment on above: Performed By: #### L 500.2500, L503.7505, L501.4021 ####[facility] [address] [place], [address] CO2 [Moles/Vol] 26.2 mmol/L Normal 21.0-32.0 [facility] Comment on above: Result Comment: Hemo lysis Present, Results will be affected, RequiresRecollection. Performed By: #### L 500.2500, L503.7505, L501.4021 ####[facility] [address] [place], [address] Creatinine [Mass/Vol] 0.99 mg/dL Normal 0.70-1.20 [facility] Comment on above: Performed By: #### L 500.2500, L503.7505, L501.4021 ####[facility] [address] [place], [address] ECRCL 70.08 ml/min Normal 50-250 [facility] Comment on above: Performed By: #### L 500.2500, L503.7505, L501.4021 ####[facility] [address] [place], [address] GAP 8 Normal 5-15 [facility] Comment on above: Performed By: #### L 500.2500, L503.7505, L501.4021 ####[facility] [address] [place], [address] GFR/1.73 sq M.predicted among non-blacks MDRD (S/P/Bld) [Vol rate/Area] 63 mL/min/{1.73_m2} Normal >60 [facility] Comment on above: Result Comment: mL/m in/1.73m2 CKD-EPI Creatinine Equation (2020) Performed By: #### L 500.2500, L503.7505, L501.4021 ####[facility] [address] [place], [address] Glucose [Mass/Vol] 152 mg/dL High 70-99 [facility] Comment on above: Performed By: #### L 500.2500, L503.7505, L501.4021 ####[facility] [address] [place], [address] Potassium [Moles/Vol] mmol/L Invalid Interpretation Code 3.3-5.1 [facility] Comment on above: Result Comment: Hemo lysis present, Results??could be affected.??Critical Result(s) Called at: 1650 by:??FABIOLA CROWELL Results read back by same.NOTED THAT THIS IS THE REDRAW AND IS STILL EXTREMLYHEMOLYZED Performed By: #### L 500.2500, L503.7505, L501.4021 ####[facility] [address] [place], [address] Sodium [Moles/Vol] 130 mmol/L Low 133-145 [facility] Comment on above: Performed By: #### L 500.2500, L503.7505, L501.4021 ####[facility] [address] [place], [address] Urea nitrogen [Mass/Vol] 19 mg/dL Normal 4-19 [facility] Comment on above: Performed By: #### L 500.2500, L503.7505, L501.4021 ####[facility] [address] [facility] [facility] [address] BUN Normal 4-19 [facility] Comment on above: Result Comment: This specimen has been REJECTED due to Laboratory criteria:Hemolyzed.CARY JIMENEZ has been notified of need of recollection.03/28/25 1557 Fabiola Lollo Performed By: #### L 500.2500 ####[facility] [address] [facility] [address] BUN/CRE Normal 10-20 [facility] Comment on above: Result Comment: This specimen has been REJECTED due to Laboratory criteria:Hemolyzed.CARY JIMENEZ has been notified of need of recollection.03/28/25 1557 Fabiola Lollo Performed By: #### L 500.2500 ####[facility] [address] [facility] [address] Calcium Normal 7.6-11.0 [facility] Comment on above: Result Comment: This specimen has been REJECTED due to Laboratory criteria:Hemolyzed.CARY JIMENEZ has been notified of need of recollection.03/28/25 1557 Fabiola Lollo Performed By: #### L 500.2500 ####[facility] [address] [facility] [address] CL Normal 98-108 [facility] Comment on above: Result Comment: This specimen has been REJECTED due to Laboratory criteria:Hemolyzed.CARY JIMENEZ has been notified of need of recollection.03/28/25 1557 Fabiola Lollo Performed By: #### L 500.2500 ####[facility] [address] [facility] [address] CO2 Normal 21.0-32.0 [facility] Comment on above: Result Comment: This specimen has been REJECTED due to Laboratory criteria:Hemolyzed.CARY JIMENEZ has been notified of need of recollection.03/28/25 1557 Fabiola Lollo Performed By: #### L 500.2500 ####[facility] [address] [place], [address] CREAT,SERUM Normal 0.70-1.20 [facility] Comment on above: Result Comment: This specimen has been REJECTED due to Laboratory criteria:Hemolyzed.CARY JIMENEZ has been notified of need of recollection.03/28/25 1557 Fabiola Lollo Performed By: #### L 500.2500 ####[facility] [address] [facility] [address] eGFR Normal >60 [facility] Comment on above: Result Comment: This specimen has been REJECTED due to Laboratory criteria:Hemolyzed.CARY JIMENEZ has been notified of need of recollection.03/28/25 1557 Fabiola Lollo Performed By: #### L 500.2500 ####[facility] [address] [facility] [address] GAP Normal 5-15 [facility] Comment on above: Result Comment: This specimen has been REJECTED due to Laboratory criteria:Hemolyzed.CARY JIMENEZ has been notified of need of recollection.03/28/25 1557 Fabiola Lollo Performed By: #### L 500.2500 ####[facility] [address] [facility] [address] GLU Normal 70-99 [facility] Comment on above: Result Comment: This specimen has been REJECTED due to Laboratory criteria:Hemolyzed.CARY JIMENEZ has been notified of need of recollection.03/28/25 1557 Fabiola Lollo Performed By: #### L 500.2500 ####[facility] [address] [place], [address] Potassium Normal 3.3-5.1 [facility] Comment on above: Result Comment: This specimen has been REJECTED due to Laboratory criteria:Hemolyzed.CARY JIMENEZ has been notified of need of recollection.03/28/25 1557 Fabiola Louieo Performed By: #### L 500.2500 ####[facility] [address] [place], [address] Basic Metabolic Profile (BMP) Normal 133-145 [facility] Comment on above: Result Comment: This specimen has been REJECTED due to Laboratory criteria:Hemolyzed.CARY JIMENEZ has been notified of need of recollection.03/28/25 1557 Fabiola Lojessicao Performed By: #### L 500.2500 ####[facility] [address] [place], [address] CBC W/Diff, Automatedon 07- Absolute Lymph 2.85 X10 3/uL Normal 0.83-4.51 [facility] Comment on above: Performed By: #### L 100.0100 ####[facility] [address] [place], [address] Absolute Neut 6.1 X10 3/uL Normal 2.0-7.7 [facility] Comment on above: Performed By: #### L 100.0100 ####[facility] [address] [place], [address] Basophils/100 WBC (Bld) 0.8 % Normal 0-1 [facility] Comment on above: Performed By: #### L 100.0100 ####[facility] [address] [place], [address] Eosinophils/100 WBC (Bld) 2.6 % Normal 0-5 [facility] Comment on above: Performed By: #### L 100.0100 ####[facility] [address] [place], [address] Erythrocyte distribution width (RBC) [Ratio] 13.8 % Normal 11.6-14.6 [facility] Comment on above: Performed By: #### L 100.0100 ####[facility] [address] [place], [address] Hematocrit (Bld) [Volume fraction] 47.0 % Normal 37-47 [facility] Comment on above: Performed By: #### L 100.0100 ####[facility] [address] [place], [address] Hemoglobin (Bld) [Mass/Vol] 15.0 g/dL Normal 12.0-15.0 [facility] Comment on above: Performed By: #### L 100.0100 ####[facility] [address] [place], [address] IG% 0.400 Normal 0.0-0.9 [facility] Comment on above: Result Comment: IG% - Immature Granulocytes (promyelocytes, myelocytes andmetamyelocytes) > 1% indicates that a LEFT SHIFT is Present. Performed By: #### L 100.0100 ####[facility] [address] [place], [address] Lymphocytes/100 WBC (Bld) 28.4 % Normal 19-41 [facility] Comment on above: Performed By: #### L 100.0100 ####[facility] [address] [place], [address] MCH (RBC) [Entitic mass] 28.8 pg Normal 27.0-32.0 [facility] Comment on above: Performed By: #### L 100.0100 ####[facility] [address] [place], [address] MCHC (RBC) [Mass/Vol] 31.9 g/dL Low 32-36 [facility] Comment on above: Performed By: #### L 100.0100 ####[facility] [address] [place], [address] MCV (RBC) [Entitic vol] 90.4 fL Normal 81-99 [facility] Comment on above: Performed By: #### L 100.0100 ####[facility] [address] [place], [address] Monocytes/100 WBC (Bld) 6.9 % Normal 0-10 [facility] Comment on above: Performed By: #### L 100.0100 ####[facility] [address] [place], [address] Neutrophils/100 WBC (Bld) 60.9 % Normal 47-70 [facility] Comment on above: Performed By: #### L 100.0100 ####[facility] [address] [place], [address] Nucleated RBC (Bld) [#/Vol] 0 10*3/uL Normal 0-5 [facility] Comment on above: Performed By: #### L 100.0100 ####[facility] [address] [place], [address] Platelet mean volume (Bld) [Entitic vol] 9.9 fL Normal 6.2-12.0 [facility] Comment on above: Performed By: #### L 100.0100 ####[facility] [address] [place], [address] Platelets (Bld) [#/Vol] 346 10*3/uL Normal 150-450 [facility] Comment on above: Performed By: #### L 100.0100 ####[facility] [address] [place], [address] RBC (Bld) [#/Vol] 5.20 10*6/uL Normal 4.2-5.4 [facility] Comment on above: Performed By: #### L 100.0100 ####[facility] [address] [place], [address] RDW SD 46.0 fl High 35.1-43.9 [facility] Comment on above: Performed By: #### L 100.0100 ####[facility] [address] [place], [address] WBC (Bld) [#/Vol] 10.0 10*3/uL Normal 4.4-11.0 [facility] Comment on above: Performed By: #### L 100.0100 ####[facility] [address] [place], [address] Chest 1 View (Portable)on Chest 1 View (Portable) Normal [facility] Emergency Department Summary on 03-28-2025 Emergency Department Summary Normal [facility] L501.4021on 03-28-2025 Trop T High Sen 17 ng/L High <=14 [facility] Comment on above: Result Comment: Hemo lysis present, Results??could be affected.?? Performed By: #### L 500.2500, L503.7505, L501.4021 ####[facility] [address] [place], [address] Pro- Brain NATRIURETIC PEPTI Sonia 03-28-2025 proBNP < 36 Normal <=900 [facility] Comment on above: Result Comment: Hear t Failure Unlikely: < 300 pg/mLHeart Failure Likely< 50 Years: > 450 pg/mL50-75 Years: > 900 pg/mL>75 Years: > 1800 pg/mL Performed By: #### L 500.2500, L503.7505, L501.4021 ####[facility] [address] [place], [address] Troponin T HS 2 HRon 03-28- 025 Trop T High Sen 9 ng/L Normal <=14 [facility] Comment on above: Performed By: #### L 499.0042 ####[facility] [address] [place], [address] Troponin T HS 4 HRon 03-28- 025 Trop T High Sen Normal <=14 [facility] Comment on above: Result Comment: Canc elled via OM: Order cancelled - Patient discharged Performed By: #### L 499.0043 ####[facility] [address] [place], [address] Basic Metabolic Profile (BMP )on 03-26-2025 BUN/CRE 11.1 RATIO Normal 10-20 [facility] Comment on above: Performed By: #### L 100.0100, L500.2500 ####[facility] [address] [place], [address] Calcium [Mass/Vol] 9.5 mg/dL Normal 7.6-11.0 [facility] Comment on above: Performed By: #### L 100.0100, L500.2500 ####[facility] [address] [place], [address] Chloride [Moles/Vol] 96 mmol/L Low 98-108 [facility] Comment on above: Performed By: #### L 100.0100, L500.2500 ####[facility] [address] [place], [address] CO2 [Moles/Vol] 30.6 mmol/L Normal 21.0-32.0 [facility] Comment on above: Performed By: #### L 100.0100, L500.2500 ####[facility] [address] [place], [address] Creatinine [Mass/Vol] 0.78 mg/dL Normal 0.70-1.20 [facility] Comment on above: Performed By: #### L 100.0100, L500.2500 ####[facility] [address] [place], [address] ECRCL 87.21 ml/min Normal 50-250 [facility] Comment on above: Performed By: #### L 100.0100, L500.2500 ####[facility] [address] [place], [address] GAP 14 Normal 5-15 [facility] Comment on above: Performed By: #### L 100.0100, L500.2500 ####[facility] [address] [place], [address] GFR/1.73 sq M.predicted among non-blacks MDRD (S/P/Bld) [Vol rate/Area] 84 mL/min/{1.73_m2} Normal >60 [facility] Comment on above: Result Comment: mL/m in/1.73m2 CKD-EPI Creatinine Equation (2020) Performed By: #### L 100.0100, L500.2500 ####[facility] [address] [place], [address] Glucose [Mass/Vol] 190 mg/dL High 70-99 [facility] Comment on above: Performed By: #### L 100.0100, L500.2500 ####[facility] [address] [place], [address] Potassium [Moles/Vol] 3.3 mmol/L Normal 3.3-5.1 [facility] Comment on above: Performed By: #### L 100.0100, L500.2500 ####[facility] [address] [place], [address] Sodium [Moles/Vol] 141 mmol/L Normal 133-145 [facility] Comment on above: Performed By: #### L 100.0100, L500.2500 ####[facility] [address] [place], [address] Urea nitrogen [Mass/Vol] 9 mg/dL Normal 4-19 [facility] Comment on above: Performed By: #### L 100.0100, L500.2500 ####[facility] [address] [place], [address] Bedside Glucoseon 03-26-2025 FINGERSTICK GLU 182 mg/dL High 74-106 [facility] Comment on above: Result Comment: MARCELLA GEMENT OF PATIENT CARE PER NURSING PROTOCOL Performed By: #### L 501.080 ####[facility] [address] [place], [address] FINGERSTICK GLU 249 mg/dL High 74-106 [facility] Comment on above: Result Comment: MARCELLA GEMENT OF PATIENT CARE PER NURSING PROTOCOL Performed By: #### L 501.080 ####[facility] [address] [place], [address] FINGERSTICK GLU 187 mg/dL High 74-106 [facility] Comment on above: Result Comment: MARCELLA GEMENT OF PATIENT CARE PER NURSING PROTOCOL Performed By: #### L 501.080 ####[facility] [address] [place], [address] CBC W/Diff, Automatedon 07-2 Absolute Lymph 2.81 X10 3/uL Normal 0.83-4.51 [facility] Comment on above: Performed By: #### L 100.0100, L500.2500 ####[facility] [address] [place], [address] Absolute Neut 4.8 X10 3/uL Normal 2.0-7.7 [facility] Comment on above: Performed By: #### L 100.0100, L500.2500 ####[facility] [address] [place], [address] Basophils/100 WBC (Bld) 0.5 % Normal 0-1 [facility] Comment on above: Performed By: #### L 100.0100, L500.2500 ####[facility] [address] [place], [address] Eosinophils/100 WBC (Bld) 2.1 % Normal 0-5 [facility] Comment on above: Performed By: #### L 100.0100, L500.2500 ####[facility] [address] [place], [address] Erythrocyte distribution width (RBC) [Ratio] 13.8 % Normal 11.6-14.6 [facility] Comment on above: Performed By: #### L 100.0100, L500.2500 ####[facility] [address] [place], [address] Hematocrit (Bld) [Volume fraction] 43.4 % Normal 37-47 [facility] Comment on above: Performed By: #### L 100.0100, L500.2500 ####[facility] [address] [place], [address] Hemoglobin (Bld) [Mass/Vol] 14.0 g/dL Normal 12.0-15.0 [facility] Comment on above: Performed By: #### L 100.0100, L500.2500 ####[facility] [address] [place], [address] IG% 0.400 Normal 0.0-0.9 [facility] Comment on above: Result Comment: IG% - Immature Granulocytes (promyelocytes, myelocytes andmetamyelocytes) > 1% indicates that a LEFT SHIFT is Present. Performed By: #### L 100.0100, L500.2500 ####[facility] [address] [place], [address] Lymphocytes/100 WBC (Bld) 33.3 % Normal 19-41 [facility] Comment on above: Performed By: #### L 100.0100, L500.2500 ####[facility] [address] [place], [address] MCH (RBC) [Entitic mass] 29.5 pg Normal 27.0-32.0 [facility] Comment on above: Performed By: #### L 100.0100, L500.2500 ####[facility] [address] [place], [address] MCHC (RBC) [Mass/Vol] 32.3 g/dL Normal 32-36 [facility] Comment on above: Performed By: #### L 100.0100, L500.2500 ####[facility] [address] [place], [address] MCV (RBC) [Entitic vol] 91.6 fL Normal 81-99 [facility] Comment on above: Performed By: #### L 100.0100, L500.2500 ####[facility] [address] [place], [address] Monocytes/100 WBC (Bld) 6.6 % Normal 0-10 [facility] Comment on above: Performed By: #### L 100.0100, L500.2500 ####[facility] [address] [place], [address] Neutrophils/100 WBC (Bld) 57.1 % Normal 47-70 [facility] Comment on above: Performed By: #### L 100.0100, L500.2500 ####[facility] [address] [place], [address] Nucleated RBC (Bld) [#/Vol] 0 10*3/uL Normal 0-5 [facility] Comment on above: Performed By: #### L 100.0100, L500.2500 ####[facility] [address] [place], [address] Platelet mean volume (Bld) [Entitic vol] 9.5 fL Normal 6.2-12.0 [facility] Comment on above: Performed By: #### L 100.0100, L500.2500 ####[facility] [address] [place], [address] Platelets (Bld) [#/Vol] 256 10*3/uL Normal 150-450 [facility] Comment on above: Performed By: #### L 100.0100, L500.2500 ####[facility] [address] [place], [address] RBC (Bld) [#/Vol] 4.74 10*6/uL Normal 4.2-5.4 [facility] Comment on above: Performed By: #### L 100.0100, L500.2500 ####[facility] [address] [place], [address] RDW SD 46.2 fl High 35.1-43.9 [facility] Comment on above: Performed By: #### L 100.0100, L500.2500 ####[facility] [address] [place], [address] WBC (Bld) [#/Vol] 8.5 10*3/uL Normal 4.4-11.0 [facility] Comment on above: Performed By: #### L 100.0100, L500.2500 ####[facility] [address] [place], [address] Discharge Instructionon 07-2 Discharge Instruction Normal [facility] Bedside Glucoseon 03-25-2025 FINGERSTICK GLU 214 mg/dL High 74-106 [facility] Comment on above: Result Comment: MARCELLA GEMENT OF PATIENT CARE PER NURSING PROTOCOL Performed By: #### L 501.080 ####[facility] [address] [place], [address] FINGERSTICK GLU 172 mg/dL High 74-106 [facility] Comment on above: Result Comment: MARCELLA GEMENT OF PATIENT CARE PER NURSING PROTOCOL Performed By: #### L 501.080 ####[facility] [address] [place], [address] FINGERSTICK GLU 175 mg/dL High 74-106 [facility] Comment on above: Result Comment: MARCELLA GEMENT OF PATIENT CARE PER NURSING PROTOCOL Performed By: #### L 501.080 ####[facility] [address] [place], [address] FINGERSTICK GLU 235 mg/dL High 74-106 [facility] Comment on above: Result Comment: MARCELLA AGUILAR OF PATIENT CARE PER NURSING PROTOCOL Performed By: #### L 501.080 ####[facility] [address] [place], [address] Echo Limited w/Contraston Echo Limited w/Contrast Normal [facility] H AND P Exam - Hospitaliston 03-25-2025 H&P Exam - Hospitalist Normal [facility] Troponin T HS 2 HRon 025 Trop T High Sen Normal <=14 [facility] Comment on above: Result Comment: Keiko maldonado via OM: Ordered Performed By: #### L 499.0042 ####[facility] [address] [place], [address] Troponin T HS 4 HRon 025 Trop T High Sen Normal <=14 [facility] Comment on above: Result Comment: Keiko maldonado via OM: MD Ordered Performed By: #### L 499.0043 ####[facility] [address] [place], [address] 12 Lead EKGon 03-24-2025 12 Lead EKG Normal [facility] CBC W/Diff, Automatedon 02-27 Absolute Lymph 1.89 X10 3/uL Normal 0.83-4.51 [facility] Comment on above: Performed By: #### L 300.8000, L501.2450, L500.4050, L100.0100 ####[facility] [address] [place], [address] Absolute Neut 5.5 X10 3/uL Normal 2.0-7.7 [facility] Comment on above: Performed By: #### L 300.8000, L501.2450, L500.4050, L100.0100 ####[facility] [address] [place], [address] Basophils/100 WBC (Bld) 0.5 % Normal 0-1 [facility] Comment on above: Performed By: #### L 300.8000, L501.2450, L500.4050, L100.0100 ####[facility] [address] [place], [address] Eosinophils/100 WBC (Bld) 2.2 % Normal 0-5 [facility] Comment on above: Performed By: #### L 300.8000, L501.2450, L500.4050, L100.0100 ####[facility] [address] [place], [address] Erythrocyte distribution width (RBC) [Ratio] 13.9 % Normal 11.6-14.6 [facility] Comment on above: Performed By: #### L 300.8000, L501.2450, L500.4050, L100.0100 ####[facility] [address] [place], [address] Hematocrit (Bld) [Volume fraction] 39.6 % Normal 37-47 [facility] Comment on above: Performed By: #### L 300.8000, L501.2450, L500.4050, L100.0100 ####[facility] [address] [place], [address] Hemoglobin (Bld) [Mass/Vol] 12.9 g/dL Normal 12.0-15.0 [facility] Comment on above: Performed By: #### L 300.8000, L501.2450, L500.4050, L100.0100 ####[facility] [address] [place], [address] IG% 0.500 Normal 0.0-0.9 [facility] Comment on above: Result Comment: IG% - Immature Granulocytes (promyelocytes, myelocytes andmetamyelocytes) > 1% indicates that a LEFT SHIFT is Present. Performed By: #### L 300.8000, L501.2450, L500.4050, L100.0100 ####[facility] [address] [place], [address] Lymphocytes/100 WBC (Bld) 23.4 % Normal 19-41 [facility] Comment on above: Performed By: #### L 300.8000, L501.2450, L500.4050, L100.0100 ####[facility] [address] [place], [address] MCH (RBC) [Entitic mass] 29.5 pg Normal 27.0-32.0 [facility] Comment on above: Performed By: #### L 300.8000, L501.2450, L500.4050, L100.0100 ####[facility] [address] [place], [address] MCHC (RBC) [Mass/Vol] 32.6 g/dL Normal 32-36 [facility] Comment on above: Performed By: #### L 300.8000, L501.2450, L500.4050, L100.0100 ####[facility] [address] [place], [address] MCV (RBC) [Entitic vol] 90.6 fL Normal 81-99 [facility] Comment on above: Performed By: #### L 300.8000, L501.2450, L500.4050, L100.0100 ####[facility] [address] [place], [address] Monocytes/100 WBC (Bld) 5.6 % Normal 0-10 [facility] Comment on above: Performed By: #### L 300.8000, L501.2450, L500.4050, L100.0100 ####[facility] [address] [place], [address] Neutrophils/100 WBC (Bld) 67.8 % Normal 47-70 [facility] Comment on above: Performed By: #### L 300.8000, L501.2450, L500.4050, L100.0100 ####[facility] [address] [place], [address] Nucleated RBC (Bld) [#/Vol] 0 10*3/uL Normal 0-5 [facility] Comment on above: Performed By: #### L 300.8000, L501.2450, L500.4050, L100.0100 ####[facility] [address] [place], [address] Platelet mean volume (Bld) [Entitic vol] 9.4 fL Normal 6.2-12.0 [facility] Comment on above: Performed By: #### L 300.8000, L501.2450, L500.4050, L100.0100 ####[facility] [address] [place], [address] Platelets (Bld) [#/Vol] 227 10*3/uL Normal 150-450 [facility] Comment on above: Performed By: #### L 300.8000, L501.2450, L500.4050, L100.0100 ####[facility] [address] [place], [address] RBC (Bld) [#/Vol] 4.37 10*6/uL Normal 4.2-5.4 [facility] Comment on above: Performed By: #### L 300.8000, L501.2450, L500.4050, L100.0100 ####[facility] [address] [place], [address] RDW SD 45.9 fl High 35.1-43.9 [facility] Comment on above: Performed By: #### L 300.8000, L501.2450, L500.4050, L100.0100 ####[facility] [address] [place], [address] WBC (Bld) [#/Vol] 8.1 10*3/uL Normal 4.4-11.0 [facility] Comment on above: Performed By: #### L 300.8000, L501.2450, L500.4050, L100.0100 ####[facility] [address] [place], [address] CTA Chst, Abd, Pel W and/or WOon 03-24-2025 CTA Chst, Abd, Pel W and/or WO Normal [facility] Chest PA and Lateralon 03-24 Chest PA and Lateral Normal [facility] Comprehensive Metabolic Prof ilon 03-24-2025 Albumin [Mass/Vol] 3.7 g/dL Normal 3.4-4.8 [facility] Comment on above: Performed By: #### L 300.8000, L501.2450, L500.4050, L100.0100 ####[facility] [address] [place], [address] Albumin/Globulin [Mass ratio] 1.3 {ratio} Normal 0.9-2.4 [facility] Comment on above: Performed By: #### L 300.8000, L501.2450, L500.4050, L100.0100 ####[facility] [address] [place], [address] ALK PHOS 110 U/L High 35-104 [facility] Comment on above: Performed By: #### L 300.8000, L501.2450, L500.4050, L100.0100 ####[facility] [address] [place], [address] ALT [Catalytic activity/Vol] 114 U/L High <=34 [facility] Comment on above: Performed By: #### L 300.8000, L501.2450, L500.4050, L100.0100 ####[facility] [address] [place], [address] AST [Catalytic activity/Vol] 83 U/L High <=31 [facility] Comment on above: Performed By: #### L 300.8000, L501.2450, L500.4050, L100.0100 ####[facility] [address] [place], [address] Bilirubin [Mass/Vol] 0.42 mg/dL Normal 0.00-1.30 [facility] Comment on above: Performed By: #### L 300.8000, L501.2450, L500.4050, L100.0100 ####[facility] [address] [place], [address] BUN/CRE 10.6 RATIO Normal 10-20 [facility] Comment on above: Performed By: #### L 300.8000, L501.2450, L500.4050, L100.0100 ####[facility] [address] [place], [address] Calcium [Mass/Vol] 8.9 mg/dL Normal 7.6-11.0 [facility] Comment on above: Performed By: #### L 300.8000, L501.2450, L500.4050, L100.0100 ####[facility] [address] [place], [address] Chloride [Moles/Vol] 102 mmol/L Normal 98-108 [facility] Comment on above: Performed By: #### L 300.8000, L501.2450, L500.4050, L100.0100 ####[facility] [address] [place], [address] CO2 [Moles/Vol] 26.4 mmol/L Normal 21.0-32.0 [facility] Comment on above: Performed By: #### L 300.8000, L501.2450, L500.4050, L100.0100 ####[facility] [address] [place], [address] Creatinine [Mass/Vol] 0.72 mg/dL Normal 0.70-1.20 [facility] Comment on above: Performed By: #### L 300.8000, L501.2450, L500.4050, L100.0100 ####[facility] [address] [place], [address] ECRCL 89.83 ml/min Normal 50-250 [facility] Comment on above: Performed By: #### L 300.8000, L501.2450, L500.4050, L100.0100 ####[facility] [address] [place], [address] GAP 12 Normal 5-15 [facility] Comment on above: Performed By: #### L 300.8000, L501.2450, L500.4050, L100.0100 ####[facility] [address] [place], [address] GFR/1.73 sq M.predicted among non-blacks MDRD (S/P/Bld) [Vol rate/Area] 93 mL/min/{1.73_m2} Normal >60 [facility] Comment on above: Result Comment: mL/m in/1.73m2 CKD-EPI Creatinine Equation (2020) Performed By: #### L 300.8000, L501.2450, L500.4050, L100.0100 ####[facility] [address] [place], [address] Globulin (S) [Mass/Vol] 2.9 g/dL Normal 2.2-4.2 [facility] Comment on above: Performed By: #### L 300.8000, L501.2450, L500.4050, L100.0100 ####[facility] [address] [place], [address] Glucose [Mass/Vol] 200 mg/dL High 70-99 [facility] Comment on above: Performed By: #### L 300.8000, L501.2450, L500.4050, L100.0100 ####[facility] [address] [place], [address] Potassium [Moles/Vol] 3.7 mmol/L Normal 3.3-5.1 [facility] Comment on above: Performed By: #### L 300.8000, L501.2450, L500.4050, L100.0100 ####[facility] [address] [place], [address] Sodium [Moles/Vol] 141 mmol/L Normal 133-145 [facility] Comment on above: Performed By: #### L 300.8000, L501.2450, L500.4050, L100.0100 ####[facility] [address] [place], [address] T PROT 6.6 g/dL Normal 5.9-8.4 [facility] Comment on above: Performed By: #### L 300.8000, L501.2450, L500.4050, L100.0100 ####[facility] [address] [place], [address] Urea nitrogen [Mass/Vol] 8 mg/dL Normal 4-19 [facility] Comment on above: Performed By: #### L 300.8000, L501.2450, L500.4050, L100.0100 ####[facility] [address] [place], [address] D-Dimer Quantitative (DVT/PE )on 03-24-2025 D-DIMER QUANT 0.76 FEU/ug/m Invalid Interpretation Code 0.27-0.49 [facility] Comment on above: Result Comment: D-Di kareen ELEVATED (>0.49): Additional studies and clinicalassessments are indicated to conclude diagnosis of:Deep Vein Thrombosis (DVT) or Pulmonary Embolism (PE)CRITICAL VALUE CALLED TO [facility]03/24/25 [address].RESULTS READ BACK BY SAME. Performed By: #### L 300.8000, L501.2450, L500.4050, L100.0100 ####[facility] [address] [place], [address] Emergency Department Summary on 03-24-2025 Emergency Department Summary Normal [facility] L501.4021on 03-24-2025 Trop T High Sen 7 ng/L Normal <=14 [facility] Comment on above: Performed By: #### L 503.6005, L503.7505, L501.4021 ####[facility] [address] [place], [address] Lactic Acidon 03-24-2025 Lactate [Moles/Vol] 1.8 mmol/L Normal 0.0-2.0 [facility] Comment on above: Order Comment: Y Performed By: #### L 503.6005, L503.7505, L501.4021 ####[facility] [address] [place], [address] Lipaseon 03-24-2025 Lipase [Catalytic activity/Vol] 33 U/L Normal 13-75 [facility] Comment on above: Result Comment: Sherri martinez note:LIPASE revised reference range effective 22.New Lipase methodology. Expected to produce lower valuesthan the previous assay method.NEW Reference Range: 13 - 75 U/L Performed By: #### L 300.8000, L501.2450, L500.4050, L100.0100 ####[facility] [address] [place], [address] Pro- Brain NATRIURETIC PEPTI Sonia 03-24-2025 Natriuretic peptide B (Bld) [Mass/Vol] 556 pg/mL Normal <=900 [facility] Comment on above: Result Comment: Hear t Failure Unlikely: < 300 pg/mLHeart Failure Likely< 50 Years: > 450 pg/mL50-75 Years: > 900 pg/mL>75 Years: > 1800 pg/mL Performed By: #### L 503.6005, L503.7505, L501.4021 ####[facility] [address] [place], [address] Endocrinology Visit Reporton 03-21-2025 Endocrinology Visit Report Normal [facility] Basic Metabolic Profile (BMP )on 03-18-2025 BUN/CRE 12.7 RATIO Normal 10-20 [facility] Comment on above: Order Comment: REDRA W. PREVIOUS SPECIMEN REJECTED DUE TOHEMOLYSIS. 03/18/25622 Dc R Hartman. Performed By: #### L 500.2500 ####[facility] [address] [place], [address] Calcium [Mass/Vol] 9.1 mg/dL Normal 7.6-11.0 [facility] Comment on above: Order Comment: REDRA W. PREVIOUS SPECIMEN REJECTED DUE TOHEMOLYSIS. 03/18/25622 Dc R Hartman. Performed By: #### L 500.2500 ####[facility] [address] [place], [address] Chloride [Moles/Vol] 98 mmol/L Normal 98-108 [facility] Comment on above: Order Comment: REDRA W. PREVIOUS SPECIMEN REJECTED DUE TOHEMOLYSIS. 03/18/25622 Dc R Hartman. Performed By: #### L 500.2500 ####[facility] [address] [place], [address] CO2 [Moles/Vol] 25.9 mmol/L Normal 21.0-32.0 [facility] Comment on above: Order Comment: REDRA W. PREVIOUS SPECIMEN REJECTED DUE TOHEMOLYSIS. 03/18/25622 Dc R Hartman. Performed By: #### L 500.2500 ####[facility] [address] [place], [address] Creatinine [Mass/Vol] 0.62 mg/dL Low 0.70-1.20 [facility] Comment on above: Order Comment: REDRA W. PREVIOUS SPECIMEN REJECTED DUE TOHEMOLYSIS. 03/18/25622 Dc R Hartman. Performed By: #### L 500.2500 ####[facility] [address] [place], [address] ECRCL 88.86 ml/min Normal 50-250 [facility] Comment on above: Order Comment: REDRA W. PREVIOUS SPECIMEN REJECTED DUE TOHEMOLYSIS. 03/18/25622 Dc R Hartman. Performed By: #### L 500.2500 ####[facility] [address] [place], [address] GAP 13 Normal 5-15 [facility] Comment on above: Order Comment: REDRA W. PREVIOUS SPECIMEN REJECTED DUE TOHEMOLYSIS. 03/18/25622 Dc R Hartman. Performed By: #### L 500.2500 ####[facility] [address] [place], [address] GFR/1.73 sq M.predicted among non-blacks MDRD (S/P/Bld) [Vol rate/Area] 98 mL/min/{1.73_m2} Normal >60 [facility] Comment on above: Order Comment: REDRA W. PREVIOUS SPECIMEN REJECTED DUE TOHEMOLYSIS. 03/18/25622 Dc R Hartman. Result Comment: mL/m in/1.73m2 CKD-EPI Creatinine Equation (2020) Performed By: #### L 500.2500 ####[facility] [address] [place], [address] Glucose [Mass/Vol] 287 mg/dL High 70-99 [facility] Comment on above: Order Comment: REDRA W. PREVIOUS SPECIMEN REJECTED DUE TOHEMOLYSIS. 03/18/25622 Dc R Hartman. Performed By: #### L 500.2500 ####[facility] [address] [place], [address] Potassium [Moles/Vol] 3.7 mmol/L Normal 3.3-5.1 [facility] Comment on above: Order Comment: REDRA W. PREVIOUS SPECIMEN REJECTED DUE TOHEMOLYSIS. 03/18/25622 Dc R Hartman. Performed By: #### L 500.2500 ####[facility] [address] [place], [address] Sodium [Moles/Vol] 137 mmol/L Normal 133-145 [facility] Comment on above: Order Comment: REDRA W. PREVIOUS SPECIMEN REJECTED DUE TOHEMOLYSIS. 03/18/25622 Dc R Hartman. Performed By: #### L 500.2500 ####[facility] [address] [place], [address] Urea nitrogen [Mass/Vol] 8 mg/dL Normal 4-19 [facility] Comment on above: Order Comment: REDRA W. PREVIOUS SPECIMEN REJECTED DUE TOHEMOLYSIS. 03/18/25622 Dc R Hartman. Performed By: #### L 500.2500 ####[facility] [address] [place], [address] BUN Normal 4-19 [facility] Comment on above: Result Comment: This specimen has been REJECTED due to Laboratory criteria:Hemolyzed.[facility] has [facility] notified of need of recollection.03/18/25621 Dc R Hartman Performed By: #### L 100.0100, L500.2500 ####[facility] [address] [facility] [address] BUN/CRE Normal 10-20 [facility] Comment on above: Result Comment: This specimen has been REJECTED due to Laboratory criteria:Hemolyzed.[facility] has been notified of need of recollection.03/18/25621 Dc R Hartman Performed By: #### L 100.0100, L500.2500 ####[facility] [address] [place], [address] Calcium Normal 7.6-11.0 [facility] Comment on above: Result Comment: This specimen has been REJECTED due to Laboratory criteria:Hemolyzed.[facility] has been notified of need of recollection.03/18/25621 Dc R Hartman Performed By: #### L 100.0100, L500.2500 ####[facility] [address] [place], [address] CL Normal 98-108 [facility] Comment on above: Result Comment: This specimen has been REJECTED due to Laboratory criteria:Hemolyzed.[facility] has been notified of need of recollection.03/18/25621 Dc R Hartman Performed By: #### L 100.0100, L500.2500 ####[facility] [address] [place], [address] CO2 Normal 21.0-32.0 [facility] Comment on above: Result Comment: This specimen has been REJECTED due to Laboratory criteria:Hemolyzed.[facility] has been notified of need of recollection.03/18/25621 Dc R Hartman Performed By: #### L 100.0100, L500.2500 ####[facility] [address] [place], [address] CREAT,SERUM Normal 0.70-1.20 [facility] Comment on above: Result Comment: This specimen has been REJECTED due to Laboratory criteria:Hemolyzed.[facility] has been notified of need of recollection.03/18/25621 Dc R Hartman Performed By: #### L 100.0100, L500.2500 ####[facility] [address] [place], [address] eGFR Normal >60 [facility] Comment on above: Result Comment: This specimen has been REJECTED due to Laboratory criteria:Hemolyzed.[facility] has been notified of need of recollection.03/18/25621 Dc R Hartman Performed By: #### L 100.0100, L500.2500 ####[facility] [address] [place], [address] GAP Normal 5-15 [facility] Comment on above: Result Comment: This specimen has been REJECTED due to Laboratory criteria:Hemolyzed.[facility] has been notified of need of recollection.03/18/25621 Dc R Hartman Performed By: #### L 100.0100, L500.2500 ####[facility] [address] [place], [address] GLU Normal 70-99 [facility] Comment on above: Result Comment: This specimen has been REJECTED due to Laboratory criteria:Hemolyzed.[facility] has been notified of need of recollection.03/18/25621 Dc R Hartman Performed By: #### L 100.0100, L500.2500 ####[facility] [address] [place], [address] Potassium Normal 3.3-5.1 [facility] Comment on above: Result Comment: This specimen has been REJECTED due to Laboratory criteria:Hemolyzed.[facility] has been notified of need of recollection.03/18/25621 Dc R Hartman Performed By: #### L 100.0100, L500.2500 ####[facility] [address] [place], [address] Basic Metabolic Profile (BMP) Normal 133-145 [facility] Comment on above: Result Comment: This specimen has been REJECTED due to Laboratory criteria:Hemolyzed.[facility] has been notified of need of recollection.03/18/25621 Dc R Hartman Performed By: #### L 100.0100, L500.2500 ####[facility] [address] [place], [address] Bedside Glucoseon 03-18-2025 FINGERSTICK GLU 208 mg/dL High 74-106 [facility] Comment on above: Result Comment: MARCELLA AGUILAR OF PATIENT CARE PER NURSING PROTOCOL Performed By: #### L 501.080 ####[facility] [address] [place], [address] FINGERSTICK GLU 274 mg/dL High 74-106 [facility] Comment on above: Result Comment: MARCELLA GEMENT OF PATIENT CARE PER NURSING PROTOCOL Performed By: #### L 501.080 ####[facility] [address] [place], [address] FINGERSTICK GLU 285 mg/dL High 74-106 [facility] Comment on above: Result Comment: MARCELLA GEMENT OF PATIENT CARE PER NURSING PROTOCOL Performed By: #### L 501.080 ####[facility] [address] [place], [address] Brain/Head without Contrasto n 03-18-2025 Brain/Head without Contrast Normal [facility] CBC W/Diff, Automatedon 02-27 PLT EST ADEQUATE Normal ADEQ [facility] Comment on above: Performed By: #### L 100.0100, L500.2500 ####[facility] [address] [place], [address] PLT MORPH CLUMPED Normal [facility] Comment on above: Performed By: #### L 100.0100, L500.2500 ####[facility] [address] [place], [address] RED CELL MORPH NORM C+C Normal NORM C C [facility] Comment on above: Performed By: #### L 100.0100, L500.2500 ####[facility] [address] [place], [address] SMEAR COMMENT SCANNED Normal [facility] Comment on above: Performed By: #### L 100.0100, L500.2500 ####[facility] [address] [place], [address] Discharge Instructionon 02-27 Discharge Instruction Normal [facility] Basic Metabolic Profile (BMP )on 03-17-2025 BUN/CRE 13.7 RATIO Normal - [facility] Comment on above: Performed By: #### L 500.2500, L501.2300 ####[facility] [address] [place], [address] Calcium [Mass/Vol] 8.8 mg/dL Normal 7.6-11.0 [facility] Comment on above: Performed By: #### L 500.2500, L501.2300 ####[facility] [address] [place], [address] Chloride [Moles/Vol] 99 mmol/L Normal 98-108 [facility] Comment on above: Performed By: #### L 500.2500, L501.2300 ####[facility] [address] [place], [address] CO2 [Moles/Vol] 21.6 mmol/L Normal 21.0-32.0 [facility] Comment on above: Performed By: #### L 500.2500, L501.2300 ####[facility] [address] [place], [address] Creatinine [Mass/Vol] 0.69 mg/dL Low 0.70-1.20 [facility] Comment on above: Performed By: #### L 500.2500, L501.2300 ####[facility] [address] [place], [address] ECRCL 88.47 ml/min Normal 50-250 [facility] Comment on above: Performed By: #### L 500.2500, L501.2300 ####[facility] [address] [place], [address] GAP 15 Normal 5-15 [facility] Comment on above: Performed By: #### L 500.2500, L501.2300 ####[facility] [address] [place], [address] GFR/1.73 sq M.predicted among non-blacks MDRD (S/P/Bld) [Vol rate/Area] 96 mL/min/{1.73_m2} Normal >60 [facility] Comment on above: Result Comment: mL/m in/1.73m2 CKD-EPI Creatinine Equation (2020) Performed By: #### L 500.2500, L501.2300 ####[facility] [address] [place], [address] Glucose [Mass/Vol] 260 mg/dL High 70-99 [facility] Comment on above: Performed By: #### L 500.2500, L501.2300 ####[facility] [address] [place], [address] Potassium [Moles/Vol] 3.9 mmol/L Normal 3.3-5.1 [facility] Comment on above: Result Comment: Hemo lysis present, Results??could be affected.?? Performed By: #### L 500.2500, L501.2300 ####[facility] [address] [place], [address] Sodium [Moles/Vol] 135 mmol/L Normal 133-145 [facility] Comment on above: Performed By: #### L 500.2500, L501.2300 ####[facility] [address] [place], [address] Urea nitrogen [Mass/Vol] 9 mg/dL Normal 4-19 [facility] Comment on above: Performed By: #### L 500.2500, L501.2300 ####[facility] [address] [place], [address] Bedside Glucoseon 03-17-2025 FINGERSTICK GLU 256 mg/dL High 74-106 [facility] Comment on above: Result Comment: MARCELLA AGUILAR OF PATIENT CARE PER NURSING PROTOCOL Performed By: #### L 501.080 ####[facility] [address] [place], [address] FINGERSTICK GLU 190 mg/dL High 74-106 [facility] Comment on above: Result Comment: MARCELLA GEMENT OF PATIENT CARE PER NURSING PROTOCOL Performed By: #### L 501.080 ####[facility] [address] [place], [address] FINGERSTICK GLU 283 mg/dL High 74-106 [facility] Comment on above: Result Comment: MARCELLA GEMENT OF PATIENT CARE PER NURSING PROTOCOL Performed By: #### L 501.080 ####[facility] [address] [place], [address] FINGERSTICK GLU 275 mg/dL High 74-106 [facility] Comment on above: Result Comment: MARCELLA GEMENT OF PATIENT CARE PER NURSING PROTOCOL Performed By: #### L 501.080 ####[facility] [address] [place], [address] FINGERSTICK GLU 309 mg/dL High -106 [facility] Comment on above: Result Comment: MARCELLA GEMENT OF PATIENT CARE PER NURSING PROTOCOL Performed By: #### L 501.080 ####[facility] [address] [place], [address] CBC W/Diff, Automatedon 07-2 0-2025 Absolute Lymph 2.41 X10 3/uL Normal 0.83-4.51 [facility] Comment on above: Performed By: #### L 100.0100 ####[facility] [address] [place], [address] Absolute Neut 3.2 X10 3/uL Normal 2.0-7.7 [facility] Comment on above: Performed By: #### L 100.0100 ####[facility] [address] [place], [address] Basophils/100 WBC (Bld) 0.8 % Normal 0-1 [facility] Comment on above: Performed By: #### L 100.0100 ####[facility] [address] [place], [address] Eosinophils/100 WBC (Bld) 2.6 % Normal 0-5 [facility] Comment on above: Performed By: #### L 100.0100 ####[facility] [address] [place], [address] Erythrocyte distribution width (RBC) [Ratio] 13.6 % Normal 11.6-14.6 [facility] Comment on above: Performed By: #### L 100.0100 ####[facility] [address] [place], [address] Hematocrit (Bld) [Volume fraction] 39.7 % Normal 37-47 [facility] Comment on above: Performed By: #### L 100.0100 ####[facility] [address] [place], [address] Hemoglobin (Bld) [Mass/Vol] 13.2 g/dL Normal 12.0-15.0 [facility] Comment on above: Performed By: #### L 100.0100 ####[facility] [address] [place], [address] IG% 0.500 Normal 0.0-0.9 [facility] Comment on above: Result Comment: IG% - Immature Granulocytes (promyelocytes, myelocytes andmetamyelocytes) > 1% indicates that a LEFT SHIFT is Present. Performed By: #### L 100.0100 ####[facility] [address] [place], [address] Lymphocytes/100 WBC (Bld) 38.6 % Normal 19-41 [facility] Comment on above: Performed By: #### L 100.0100 ####[facility] [address] [place], [address] MCH (RBC) [Entitic mass] 29.0 pg Normal 27.0-32.0 [facility] Comment on above: Performed By: #### L 100.0100 ####[facility] [address] [place], [address] MCHC (RBC) [Mass/Vol] 33.2 g/dL Normal 32-36 [facility] Comment on above: Performed By: #### L 100.0100 ####[facility] [address] [place], [address] MCV (RBC) [Entitic vol] 87.3 fL Normal 81-99 [facility] Comment on above: Performed By: #### L 100.0100 ####[facility] [address] [place], [address] Monocytes/100 WBC (Bld) 5.9 % Normal 0-10 [facility] Comment on above: Performed By: #### L 100.0100 ####[facility] [address] [place], [address] Neutrophils/100 WBC (Bld) 51.6 % Normal 47-70 [facility] Comment on above: Performed By: #### L 100.0100 ####[facility] [address] [place], [address] Nucleated RBC (Bld) [#/Vol] 0 10*3/uL Normal 0-5 [facility] Comment on above: Performed By: #### L 100.0100 ####[facility] [address] [place], [address] Platelet mean volume (Bld) [Entitic vol] 9.2 fL Normal 6.2-12.0 [facility] Comment on above: Performed By: #### L 100.0100 ####[facility] [address] [place], [address] Platelets (Bld) [#/Vol] 221 10*3/uL Normal 150-450 [facility] Comment on above: Performed By: #### L 100.0100 ####[facility] [address] [place], [address] RBC (Bld) [#/Vol] 4.55 10*6/uL Normal 4.2-5.4 [facility] Comment on above: Performed By: #### L 100.0100 ####[facility] [address] [place], [address] RDW SD 42.8 fl Normal 35.1-43.9 [facility] Comment on above: Performed By: #### L 100.0100 ####[facility] [address] [place], [address] WBC (Bld) [#/Vol] 6.3 10*3/uL Normal 4.4-11.0 [facility] Comment on above: Performed By: #### L 100.0100 ####[facility] [address] [facility] [place], [address] MR/CON.PCM.NEon 03-17-2025 MR/CON.PCM.NE Normal [facility] Phosphoruson 03-17-2025 Phosphate [Mass/Vol] 3.2 mg/dL Normal 2.7-4.5 [facility] Comment on above: Performed By: #### L 500.2500, L501.2300 ####[facility] [address] [facility] [place], [address] Urine Cultureon 03-17-2025 URC Below infection leve l. Staphylococcus species [place] Count 1000-10,000 GPC Poss Enterococcus sp GPC Poss Enterococcus sp Normal [facility] Comment on above: Performed By: #### M 100.2200 ####[facility] [address] [facility] [place], [address] Bedside Glucoseon 03-16-2025 FINGERSTICK GLU 263 mg/dL High 74-106 [facility] Comment on above: Result Comment: MARCELLA AGUILAR OF PATIENT CARE PER NURSING PROTOCOL Performed By: #### L 501.080 ####[facility] [address] [place], [address] FINGERSTICK GLU 294 mg/dL High 74-106 [facility] Comment on above: Result Comment: MARCELLA AGUILAR OF PATIENT CARE PER NURSING PROTOCOL Performed By: #### L 501.080 ####[facility] [address] [place], [address] CBC W/Diff, Automatedon 02-26 Absolute Lymph 2.48 X10 3/uL Normal 0.83-4.51 [facility] Comment on above: Performed By: #### L 501.2300, L100.0100, L500.4100, L500.4050 ####[facility] [address] [place], [address] Absolute Neut 3.8 X10 3/uL Normal 2.0-7.7 [facility] Comment on above: Performed By: #### L 501.2300, L100.0100, L500.4100, L500.4050 ####[facility] [address] [place], [address] Basophils/100 WBC (Bld) 0.7 % Normal 0-1 [facility] Comment on above: Performed By: #### L 501.2300, L100.0100, L500.4100, L500.4050 ####[facility] [address] [place], [address] Eosinophils/100 WBC (Bld) 3.1 % Normal 0-5 [facility] Comment on above: Performed By: #### L 501.2300, L100.0100, L500.4100, L500.4050 ####[facility] [address] [place], [address] Erythrocyte distribution width (RBC) [Ratio] 13.9 % Normal 11.6-14.6 [facility] Comment on above: Performed By: #### L 501.2300, L100.0100, L500.4100, L500.4050 ####[facility] [address] [place], [address] Hematocrit (Bld) [Volume fraction] 40.6 % Normal 37-47 [facility] Comment on above: Performed By: #### L 501.2300, L100.0100, L500.4100, L500.4050 ####[facility] [address] [place], [address] Hemoglobin (Bld) [Mass/Vol] 13.1 g/dL Normal 12.0-15.0 [facility] Comment on above: Performed By: #### L 501.2300, L100.0100, L500.4100, L500.4050 ####[facility] [address] [place], [address] IG% 0.600 Normal 0.0-0.9 [facility] Comment on above: Result Comment: IG% - Immature Granulocytes (promyelocytes, myelocytes andmetamyelocytes) > 1% indicates that a LEFT SHIFT is Present. Performed By: #### L 501.2300, L100.0100, L500.4100, L500.4050 ####[facility] [address] [place], [address] Lymphocytes/100 WBC (Bld) 35.5 % Normal 19-41 [facility] Comment on above: Performed By: #### L 501.2300, L100.0100, L500.4100, L500.4050 ####[facility] [address] [place], [address] MCH (RBC) [Entitic mass] 29.0 pg Normal 27.0-32.0 [facility] Comment on above: Performed By: #### L 501.2300, L100.0100, L500.4100, L500.4050 ####[facility] [address] [place], [address] MCHC (RBC) [Mass/Vol] 32.3 g/dL Normal 32-36 [facility] Comment on above: Performed By: #### L 501.2300, L100.0100, L500.4100, L500.4050 ####[facility] [address] [place], [address] MCV (RBC) [Entitic vol] 90.0 fL Normal 81-99 [facility] Comment on above: Performed By: #### L 501.2300, L100.0100, L500.4100, L500.4050 ####[facility] [address] [place], [address] Monocytes/100 WBC (Bld) 6.4 % Normal 0-10 [facility] Comment on above: Performed By: #### L 501.2300, L100.0100, L500.4100, L500.4050 ####[facility] [address] [place], [address] Neutrophils/100 WBC (Bld) 53.7 % Normal 47-70 [facility] Comment on above: Performed By: #### L 501.2300, L100.0100, L500.4100, L500.4050 ####[facility] [address] [place], [address] Nucleated RBC (Bld) [#/Vol] 0 10*3/uL Normal 0-5 [facility] Comment on above: Performed By: #### L 501.2300, L100.0100, L500.4100, L500.4050 ####[facility] [address] [place], [address] Platelet mean volume (Bld) [Entitic vol] 9.2 fL Normal 6.2-12.0 [facility] Comment on above: Performed By: #### L 501.2300, L100.0100, L500.4100, L500.4050 ####[facility] [address] [place], [address] Platelets (Bld) [#/Vol] 221 10*3/uL Normal 150-450 [facility] Comment on above: Performed By: #### L 501.2300, L100.0100, L500.4100, L500.4050 ####[facility] [address] [place], [address] RBC (Bld) [#/Vol] 4.51 10*6/uL Normal 4.2-5.4 [facility] Comment on above: Performed By: #### L 501.2300, L100.0100, L500.4100, L500.4050 ####[facility] [address] [place], [address] RDW SD 45.9 fl High 35.1-43.9 [facility] Comment on above: Performed By: #### L 501.2300, L100.0100, L500.4100, L500.4050 ####[facility] [address] [place], [address] WBC (Bld) [#/Vol] 7.0 10*3/uL Normal 4.4-11.0 [facility] Comment on above: Performed By: #### L 501.2300, L100.0100, L500.4100, L500.4050 ####[facility] [address] [place], [address] Comprehensive Metabolic Prof [facility] [place] 03-16-2025 Albumin [Mass/Vol] 3.5 g/dL Normal 3.4-4.8 [facility] Comment on above: Performed By: #### L 501.2300, L100.0100, L500.4100, L500.4050 ####[facility] [address] [place], [address] Albumin/Globulin [Mass ratio] 1.1 {ratio} Normal 0.9-2.4 [facility] Comment on above: Performed By: #### L 501.2300, L100.0100, L500.4100, L500.4050 ####[facility] [address] [place], [address] ALK PHOS 114 U/L High 35-104 [facility] Comment on above: Performed By: #### L 501.2300, L100.0100, L500.4100, L500.4050 ####[facility] [address] [place], [address] ALT [Catalytic activity/Vol] 42 U/L High <=34 [facility] Comment on above: Performed By: #### L 501.2300, L100.0100, L500.4100, L500.4050 ####[facility] [address] [place], [address] AST [Catalytic activity/Vol] 71 U/L High <=31 [facility] Comment on above: Performed By: #### L 501.2300, L100.0100, L500.4100, L500.4050 ####[facility] [address] [place], [address] Bilirubin [Mass/Vol] 0.31 mg/dL Normal 0.00-1.30 [facility] Comment on above: Performed By: #### L 501.2300, L100.0100, L500.4100, L500.4050 ####[facility] [address] [place], [address] BUN/CRE 16.5 RATIO Normal 10-20 [facility] Comment on above: Performed By: #### L 501.2300, L100.0100, L500.4100, L500.4050 ####[facility] [address], [address] Calcium [Mass/Vol] 8.6 mg/dL Normal 7.6-11.0 [facility] Comment on above: Performed By: #### L 501.2300, L100.0100, L500.4100, L500.4050 ####[facility] [address] [place], [address] Chloride [Moles/Vol] 103 mmol/L Normal 98-108 [facility] Comment on above: Performed By: #### L 501.2300, L100.0100, L500.4100, L500.4050 ####[facility] [address] [place], [address] CO2 [Moles/Vol] 26.0 mmol/L Normal 21.0-32.0 [facility] Comment on above: Performed By: #### L 501.2300, L100.0100, L500.4100, L500.4050 ####[facility] [address] [place], [address] Creatinine [Mass/Vol] 0.68 mg/dL Low 0.70-1.20 [facility] Comment on above: Performed By: #### L 501.2300, L100.0100, L500.4100, L500.4050 ####[facility] [address] [place], [address] ECRCL 88.47 ml/min Normal 50-250 [facility] Comment on above: Performed By: #### L 501.2300, L100.0100, L500.4100, L500.4050 ####[facility] [address] [place], [address] GAP 10 Normal 5-15 [facility] Comment on above: Performed By: #### L 501.2300, L100.0100, L500.4100, L500.4050 ####[facility] [address] [place], [address] GFR/1.73 sq M.predicted among non-blacks MDRD (S/P/Bld) [Vol rate/Area] 96 mL/min/{1.73_m2} Normal >60 [facility] Comment on above: Result Comment: mL/m in/1.73m2 CKD-EPI Creatinine Equation (2020) Performed By: #### L 501.2300, L100.0100, L500.4100, L500.4050 ####[facility] [address] [place], [address] Globulin (S) [Mass/Vol] 3.1 g/dL Normal 2.2-4.2 [facility] Comment on above: Performed By: #### L 501.2300, L100.0100, L500.4100, L500.4050 ####[facility] [address] [place], [address] Glucose [Mass/Vol] 223 mg/dL High 70-99 [facility] Comment on above: Performed By: #### L 501.2300, L100.0100, L500.4100, L500.4050 ####[facility] [address] [place], [address] Potassium [Moles/Vol] 4.2 mmol/L Normal 3.3-5.1 [facility] Comment on above: Performed By: #### L 501.2300, L100.0100, L500.4100, L500.4050 ####[facility] [address] [place], [address] Sodium [Moles/Vol] 139 mmol/L Normal 133-145 [facility] Comment on above: Performed By: #### L 501.2300, L100.0100, L500.4100, L500.4050 ####[facility] [address] [place], [address] T PROT 6.6 g/dL Normal 5.9-8.4 [facility] Comment on above: Performed By: #### L 501.2300, L100.0100, L500.4100, L500.4050 ####[facility] [address] [place], [address] Urea nitrogen [Mass/Vol] 11 mg/dL Normal 12-15 [facility] Comment on above: Performed By: #### L 501.2300, L100.0100, L500.4100, L500.4050 ####[facility] [address] [place], [address] Folates,Serum (Folic Acid)on 03-16-2025 FOLATES,SERUM 28.80 ng/mL Normal 4.60-34.80 [facility] Comment on above: Result Comment: Hemo lysis, Results will be affected, Requires Recollection. Performed By: #### L 501.5200, L501.9520, L506.0200, L501.9985 ####[facility] [address] [place], [address] Lipid Profileon 03-16-2025 CHOL:HDL 6.32 Normal [facility] Comment on above: Performed By: #### L 501.2300, L100.0100, L500.4100, L500.4050 ####[facility] [address] [place], [address] Cholesterol [Mass/Vol] 168 mg/dL Normal <=200 [facility] Comment on above: Result Comment: Chol esterol level, Desirable <200 mg/dLBorderline high cholesterol 200-239 mg/dLHigh cholesterol >=240 mg/dLRecommendations of the NCEP Adult Treatment Panel for thefollowing risk-cutoff thresholds for the [place] Americanpulation. Performed By: #### L 501.2300, L100.0100, L500.4100, L500.4050 ####[facility] [address] [place], [address] Cholesterol in HDL [Mass/Vol] 27 mg/dL Low [facility] Comment on above: Result Comment: Margie onal Cholesterol Education Program (NCEP) guidelines:<40 mg/dL: Low HDL-cholesterol (major risk factor for CHD)>= 60 mg/dL: High HDL-cholesterol (negative risk factor forCHD)HDL-cholesterol is affected by a number of factors, e.g.smoking, exercise, hormones, sex and age. Performed By: #### L 501.2300, L100.0100, L500.4100, L500.4050 ####[facility] [address] [place], [address] Cholesterol in LDL [Mass/Vol] -17 mg/dL Normal [facility] Comment on above: Result Comment: Bord nvhvco=307-431 mg/dL Higher Aawg=543 mg/dL or greater Performed By: #### L 501.2300, L100.0100, L500.4100, L500.4050 ####[facility] [address] [place], [address] Cholesterol in VLDL [Mass/Vol] 159 mg/dL High 5-40 [facility] Comment on above: Performed By: #### L 501.2300, L100.0100, L500.4100, L500.4050 ####[facility] [address] [place], [address] Triglyceride [Mass/Vol] 793 mg/dL High [facility] Comment on above: Result Comment: The drugs N-Acetylcysteine and Metamizole may falselydepress this assay.Normal range: <150 mg/dLBorderline High: 150-199 mg/dLHigh: 200-499 mg/dLVery High: >500 mg/dL Performed By: #### L 501.2300, L100.0100, L500.4100, L500.4050 ####[facility] [address] [place], [address] Phosphoruson 03-16-2025 Phosphate [Mass/Vol] 3.6 mg/dL Normal 2.7-4.5 [facility] Comment on above: Performed By: #### L 501.2300, L100.0100, L500.4100, L500.4050 ####[facility] [address] [place], [address] Vitamin B12on 03-16-2025 Cobalamin (Vitamin B12) [Mass/Vol] 709 pg/mL Normal 180-914 [facility] Comment on above: Performed By: #### L 503.0106 ####[facility] [address] [place], [address] Ammoniaon 03-15-2025 Ammonia (P) [Moles/Vol] 30.7 umol/L Normal 11-51 [facility] Comment on above: Performed By: #### L 503.5510 ####[facility] [address] [place], [address] Bedside Glucoseon 03-15-2025 FINGERSTICK GLU 204 mg/dL High 74-106 [facility] Comment on above: Result Comment: MARCELLA GEMENT OF PATIENT CARE PER NURSING PROTOCOL Performed By: #### L 501.080 ####[facility] [address], [address] FINGERSTICK GLU 250 mg/dL High 74-106 [facility] Comment on above: Result Comment: MARCELLA GEMENT OF PATIENT CARE PER NURSING PROTOCOL Performed By: #### L 501.080 ####[facility] [address] [place], [address] Brain/Head without Contrasto n 03-15-2025 Brain/Head without Contrast Normal [facility] CBC W/Diff, Automatedon 07- Absolute Lymph 2.75 X10 3/uL Normal 0.83-4.51 [facility] Comment on above: Performed By: #### L 500.4050, L501.2450, L100.0100 ####[facility] [address] [place], [address] Absolute Neut 5.4 X10 3/uL Normal 2.0-7.7 [facility] Comment on above: Performed By: #### L 500.4050, L501.2450, L100.0100 ####[facility] [address] [place], [address] Basophils/100 WBC (Bld) 0.6 % Normal 0-1 [facility] Comment on above: Performed By: #### L 500.4050, L501.2450, L100.0100 ####[facility] [address] [place], [address] Eosinophils/100 WBC (Bld) 2.8 % Normal 0-5 [facility] Comment on above: Performed By: #### L 500.4050, L501.2450, L100.0100 ####[facility] [address] [place], [address] Erythrocyte distribution width (RBC) [Ratio] 13.7 % Normal 11.6-14.6 [facility] Comment on above: Performed By: #### L 500.4050, L501.2450, L100.0100 ####[facility] [address] [place], [address] Hematocrit (Bld) [Volume fraction] 39.5 % Normal 37-47 [facility] Comment on above: Performed By: #### L 500.4050, L501.2450, L100.0100 ####[facility] [address] [place], [address] Hemoglobin (Bld) [Mass/Vol] 13.0 g/dL Normal 12.0-15.0 [facility] Comment on above: Performed By: #### L 500.4050, L501.2450, L100.0100 ####[facility] [address] [place], [address] IG% 0.600 Normal 0.0-0.9 [facility] Comment on above: Result Comment: IG% - Immature Granulocytes (promyelocytes, myelocytes andmetamyelocytes) > 1% indicates that a LEFT SHIFT is Present. Performed By: #### L 500.4050, L501.2450, L100.0100 ####[facility] [address] [place], [address] Lymphocytes/100 WBC (Bld) 30.4 % Normal 19-41 [facility] Comment on above: Performed By: #### L 500.4050, L501.2450, L100.0100 ####[facility] [address] [place], [address] MCH (RBC) [Entitic mass] 29.0 pg Normal 27.0-32.0 [facility] Comment on above: Performed By: #### L 500.4050, L501.2450, L100.0100 ####[facility] [address] [place], [address] MCHC (RBC) [Mass/Vol] 32.9 g/dL Normal 32-36 [facility] Comment on above: Performed By: #### L 500.4050, L501.2450, L100.0100 ####[facility] [address] [place], [address] MCV (RBC) [Entitic vol] 88.0 fL Normal 81-99 [facility] Comment on above: Performed By: #### L 500.4050, L501.2450, L100.0100 ####[facility] [address] [place], [address] Monocytes/100 WBC (Bld) 6.4 % Normal 0-10 [facility] Comment on above: Performed By: #### L 500.4050, L501.2450, L100.0100 ####[facility] [address] [place], [address] Neutrophils/100 WBC (Bld) 59.2 % Normal 47-70 [facility] Comment on above: Performed By: #### L 500.4050, L501.2450, L100.0100 ####[facility] [address] [place], [address] Nucleated RBC (Bld) [#/Vol] 0 10*3/uL Normal 0-5 [facility] Comment on above: Performed By: #### L 500.4050, L501.2450, L100.0100 ####[facility] [address] [place], [address] Platelet mean volume (Bld) [Entitic vol] 9.5 fL Normal 6.2-12.0 [facility] Comment on above: Performed By: #### L 500.4050, L501.2450, L100.0100 ####[facility] [address] [place], [address] Platelets (Bld) [#/Vol] 234 10*3/uL Normal 150-450 [facility] Comment on above: Performed By: #### L 500.4050, L501.2450, L100.0100 ####[facility] [address] [place], [address] RBC (Bld) [#/Vol] 4.49 10*6/uL Normal 4.2-5.4 [facility] Comment on above: Performed By: #### L 500.4050, L501.2450, L100.0100 ####[facility] [address] [place], [address] RDW SD 43.7 fl Normal 35.1-43.9 [facility] Comment on above: Performed By: #### L 500.4050, L501.2450, L100.0100 ####[facility] [address] [place], [address] WBC (Bld) [#/Vol] 9.1 10*3/uL Normal 4.4-11.0 [facility] Comment on above: Performed By: #### L 500.4050, L501.2450, L100.0100 ####[facility] [address] [place], [address] Comprehensive Metabolic Prof [facility] [place] 03-15-2025 Albumin [Mass/Vol] 3.5 g/dL Normal 3.4-4.8 [facility] Comment on above: Performed By: #### L 500.4050, L501.2450, L100.0100 ####[facility] [address] [place], [address] Albumin/Globulin [Mass ratio] 1.1 {ratio} Normal 0.9-2.4 [facility] Comment on above: Performed By: #### L 500.4050, L501.2450, L100.0100 ####[facility] [address] [place], [address] ALK PHOS 117 U/L High 35-104 [facility] Comment on above: Performed By: #### L 500.4050, L501.2450, L100.0100 ####[facility] [address] [place], [address] ALT [Catalytic activity/Vol] 41 U/L High <=34 [facility] Comment on above: Performed By: #### L 500.4050, L501.2450, L100.0100 ####[facility] [address] [place], [address] AST [Catalytic activity/Vol] 60 U/L High <=31 [facility] Comment on above: Result Comment: Hemo lysis present, Results??could be affected.?? Performed By: #### L 500.4050, L501.2450, L100.0100 ####[facility] [address] [place], [address] Bilirubin [Mass/Vol] 0.25 mg/dL Normal 0.00-1.30 [facility] Comment on above: Performed By: #### L 500.4050, L501.2450, L100.0100 ####[facility] [address] [place], [address] BUN/CRE 22.8 RATIO High 10-20 [facility] Comment on above: Performed By: #### L 500.4050, L501.2450, L100.0100 ####[facility] [address] [place], [address] Calcium [Mass/Vol] 8.6 mg/dL Normal 7.6-11.0 [facility] Comment on above: Performed By: #### L 500.4050, L501.2450, L100.0100 ####[facility] [address] [place], [address] Chloride [Moles/Vol] 101 mmol/L Normal 98-108 [facility] Comment on above: Performed By: #### L 500.4050, L501.2450, L100.0100 ####[facility] [address] [place], [address] CO2 [Moles/Vol] 23.9 mmol/L Normal 21.0-32.0 [facility] Comment on above: Performed By: #### L 500.4050, L501.2450, L100.0100 ####[facility] [address] [place], [address] Creatinine [Mass/Vol] 0.64 mg/dL Low 0.70-1.20 [facility] Comment on above: Performed By: #### L 500.4050, L501.2450, L100.0100 ####[facility] [address] [place], [address] ECRCL 87.16 ml/min Normal 50-250 [facility] Comment on above: Performed By: #### L 500.4050, L501.2450, L100.0100 ####[facility] [address] [place], [address] GAP 12 Normal 5-15 [facility] Comment on above: Performed By: #### L 500.4050, L501.2450, L100.0100 ####[facility] [address] [place], [address] GFR/1.73 sq M.predicted among non-blacks MDRD (S/P/Bld) [Vol rate/Area] 97 mL/min/{1.73_m2} Normal >60 [facility] Comment on above: Result Comment: mL/m in/1.73m2 CKD-EPI Creatinine Equation (2020) Performed By: #### L 500.4050, L501.2450, L100.0100 ####[facility] [address] [place], [address] Globulin (S) [Mass/Vol] 3.1 g/dL Normal 2.2-4.2 [facility] Comment on above: Performed By: #### L 500.4050, L501.2450, L100.0100 ####[facility] [address] [place], [address] Glucose [Mass/Vol] 239 mg/dL High 70-99 [facility] Comment on above: Performed By: #### L 500.4050, L501.2450, L100.0100 ####[facility] [address] [place], [address] Potassium [Moles/Vol] 3.9 mmol/L Normal 3.3-5.1 [facility] Comment on above: Result Comment: Hemo lysis present, Results??could be affected.?? Performed By: #### L 500.4050, L501.2450, L100.0100 ####[facility] [address] [place], [address] Sodium [Moles/Vol] 137 mmol/L Normal 133-145 [facility] Comment on above: Performed By: #### L 500.4050, L501.2450, L100.0100 ####[facility] [address] [place], [address] T PROT 6.6 g/dL Normal 5.9-8.4 [facility] Comment on above: Performed By: #### L 500.4050, L501.2450, L100.0100 ####[facility] [address] [place], [address] Urea nitrogen [Mass/Vol] 15 mg/dL Normal 4-19 [facility] Comment on above: Performed By: #### L 500.4050, L501.2450, L100.0100 ####[facility] [address] [place], [address] Emergency Department Summary on 03-15-2025 Emergency Department Summary Normal [facility] H AND P Exam - Hospitaliston 03-15-2025 H&P Exam - Hospitalist Normal [facility] Hemoglobin A1con 03-15-2025 HbA1c (Bld) [Mass fraction] 11.7 % High <=5.6 [facility] Comment on above: Result Comment: Norm al < 5.7 % Prediabetic 5.7 - 6.4 % Diabetic >or= 6.5 % Please note range changes. Performed By: #### L 501.5200, L501.9520, L506.0200, L501.9985 ####[facility] [address] [place], [address] Lipaseon 03-15-2025 Lipase [Catalytic activity/Vol] 33 U/L Normal 13-75 [facility] Comment on above: Result Comment: Sherri martinez note:LIPASE revised reference range effective 22.New Lipase methodology. Expected to produce lower valuesthan the previous assay method.NEW Reference Range: 13 - 75 U/L Performed By: #### L 500.4050, L501.2450, L100.0100 ####[facility] [address] [place], [address] Magnesiumon 03-15-2025 Magnesium [Mass/Vol] 1.8 mg/dL Normal 1.5-2.2 [facility] Comment on above: Performed By: #### L 501.5200, L501.9520, L506.0200, L501.9985 ####[facility] [address] [place], [address] Thyroid Stim Hormone (TSH)on 03-15-2025 TSH 1.540 uIU/mL Normal 0.300-4.200 [facility] Comment on above: Performed By: #### L 501.5200, L501.9520, L506.0200, L501.9985 ####[facility] [address] [place], [address] Urinalysis, Completeon 03-15 BACTERIA 2+ /hpf Normal None Seen [facility] Comment on above: Order Comment: SURESH CTOR TO SPECIFY Performed By: #### L 400.0001 ####[facility] [address] [place], [address] EPI,SQUAMOUS 5-10 SEEN Normal 5-10 [facility] Comment on above: Order Comment: USRESH CTOR TO SPECIFY Performed By: #### L 400.0001 ####[facility] [address] [place], [address] WBC 10-25 SEEN Normal 0-5 [facility] Comment on above: Order Comment: SURESH CTOR TO SPECIFY Performed By: #### L 400.0001 ####[facility] [address] [place] [phone] Mucus Ql (Urine sed) 0 SEEN Normal [facility] Comment on above: Order Comment: COLLE CTOR TO SPECIFY Performed By: #### L 400.0001 ####[facility] [address] [place] [phone] RBC 0 SEEN Normal 0-5 [facility] Comment on above: Order Comment: SURESH CTOR TO SPECIFY Performed By: #### L 400.0001 ####[facility] [address] [place] [address] Urine Drug Screen (VISTA)on 03-15-2025 AMPHETAMINES Normal <1000 ng/mL [facility] Comment on above: Result Comment: BOB ENT DISCHARGED. SPECIMEN NOT RECEIVED. Performed By: #### L 505.5000 ####[facility] [address] [place] [address] BARBITIURATES Normal < 200 ng/mL [facility] Comment on above: Result Comment: BOB ENT DISCHARGED. SPECIMEN NOT RECEIVED. Performed By: #### L 505.5000 ####[facility] [address] [place] [address] BENZODIAZIPINE Normal < 200 ng/mL [facility] Comment on above: Result Comment: BOB ENT DISCHARGED. SPECIMEN NOT RECEIVED. Performed By: #### L 505.5000 ####[facility] [address] [place] [address] BUP Ur Drug Scr Normal < 200 ng/mL [facility] Comment on above: Result Comment: BOB ENT DISCHARGED. SPECIMEN NOT RECEIVED. Performed By: #### L 505.5000 ####[facility] [address] [place] [phone] COCAINE Normal < 300 ng/mL [facility] Comment on above: Result Comment: BOB ENT DISCHARGED. SPECIMEN NOT RECEIVED. Performed By: #### L 505.5000 ####[facility] [address] [place] [address] Fentanyl Normal [facility] Comment on above: Result Comment: BOB ENT DISCHARGED. SPECIMEN NOT RECEIVED. Performed By: #### L 505.5000 ####[facility] [address] [place] [address] METHADONE Normal < 300 ng/mL [facility] Comment on above: Result Comment: BOB ENT DISCHARGED. SPECIMEN NOT RECEIVED. Performed By: #### L 505.5000 ####[facility] [address] [place] [address] OPIATES Normal < 300 ng/mL [facility] Comment on above: Result Comment: BOB ENT DISCHARGED. SPECIMEN NOT RECEIVED. Performed By: #### L 505.5000 ####[facility] [address] [place] [address] OXYCODONE Normal < 100 ng/mL [facility] Comment on above: Result Comment: BOB ENT DISCHARGED. SPECIMEN NOT RECEIVED. Performed By: #### L 505.5000 ####[facility] [address] [place] [address] PCP Normal < 25 ng/mL [facility] Comment on above: Result Comment: BOB ENT DISCHARGED. SPECIMEN NOT RECEIVED. Performed By: #### L 505.5000 ####[facility] [address] [place] [address] THC Normal < 50 ng/mL [facility] Comment on above: Result Comment: BOB ENT DISCHARGED. SPECIMEN NOT RECEIVED. Performed By: #### L 505.5000 ####[facility] [address] [place] [address] Venous Blood Gason 5 Blood Gas Type REJI Normal [facility] Comment on above: Performed By: #### L 9000.0810 ####[facility] [address] [place], [address] CO2 [Moles/Vol] 32 mmol/L Normal 23-33 [facility] Comment on above: Performed By: #### L 9000.0810 ####[facility] [address] [place], [address] HCO3 (Bld) [Moles/Vol] 30 mmol/L High 22-26 [facility] Comment on above: Performed By: #### L 9000.0810 ####[facility] [address] [place], [address] O2 Delivery Dev Not entered Normal [facility] Comment on above: Performed By: #### L 9000.0810 ####[facility] [address] [place], [address] SITE Not entered Normal [facility] Comment on above: Performed By: #### L 9000.0810 ####[facility] [address] [place], [address] VBG BE 6 mmol/L High -1.0-3.5 [facility] Comment on above: Performed By: #### L 9000.0810 ####[facility] [address] [place], [address] VBG pCO2 48.2 mmHg Normal 41-51 [facility] Comment on above: Performed By: #### L 9000.0810 ####[facility] [address] [place], [address] VBG pH 7.41 Normal 7.32-7.42 [facility] Comment on above: Performed By: #### L 9000.0810 ####[facility] [address] [place], [address] VBG PO2 58 mmHg High 25-40 [facility] Comment on above: Performed By: #### L 9000.0810 ####[facility] [address] [place], [address] VBG SO2 89 High 50-70 [facility] Comment on above: Performed By: #### L 9000.0810 ####[facility] [address] [place], [address] MR/BMS.BPon 03-11-2025 MR/BMS.BP Normal [facility] Extremity Lower without Cont raon 02-09-2025 Extremity Lower without Contra Normal [facility] CBC W/Diff, Automatedon Absolute Lymph 2.35 X10 3/uL Normal 0.83-4.51 [facility] Comment on above: Performed By: #### L 500.4050, L100.0100, L501.1400, L501.6710, L501.10337, L501.5200, L506.0400, L501.2450, L101.9900, L501.9520 ####[facility] [address] [place], [address] Absolute Neut 6.7 X10 3/uL Normal 2.0-7.7 [facility] Comment on above: Performed By: #### L 500.4050, L100.0100, L501.1400, L501.6710, L501.62639, L501.5200, L506.0400, L501.2450, L101.9900, L501.9520 ####[facility] [address] [place], [address] Basophils/100 WBC (Bld) 0.6 % Normal 0-1 [facility] Comment on above: Performed By: #### L 500.4050, L100.0100, L501.1400, L501.6710, L501.67028, L501.5200, L506.0400, L501.2450, L101.9900, L501.9520 ####[facility] [address] [place], [address] Eosinophils/100 WBC (Bld) 1.0 % Normal 0-5 [facility] Comment on above: Performed By: #### L 500.4050, L100.0100, L501.1400, L501.6710, L501.07180, L501.5200, L506.0400, L501.2450, L101.9900, L501.9520 ####[facility] [address] [place], [address] Erythrocyte distribution width (RBC) [Ratio] 13.2 % Normal 11.6-14.6 [facility] Comment on above: Performed By: #### L 500.4050, L100.0100, L501.1400, L501.6710, L501.45021, L501.5200, L506.0400, L501.2450, L101.9900, L501.9520 ####[facility] [address] [place], [address] Hematocrit (Bld) [Volume fraction] 43.4 % Normal 37-47 [facility] Comment on above: Performed By: #### L 500.4050, L100.0100, L501.1400, L501.6710, L501.59902, L501.5200, L506.0400, L501.2450, L101.9900, L501.9520 ####[facility] [address] [place], [address] Hemoglobin (Bld) [Mass/Vol] 14.5 g/dL Normal 12.0-15.0 [facility] Comment on above: Performed By: #### L 500.4050, L100.0100, L501.1400, L501.6710, L501.00000, L501.5200, L506.0400, L501.2450, L101.9900, L501.9520 ####[facility] [address] [place], [address] IG% 0.500 Normal 0.0-0.9 [facility] Comment on above: Result Comment: IG% - Immature Granulocytes (promyelocytes, myelocytes andmetamyelocytes) > 1% indicates that a LEFT SHIFT is Present. Performed By: #### L 500.4050, L100.0100, L501.1400, L501.6710, L501.00536, L501.5200, L506.0400, L501.2450, L101.9900, L501.9520 ####[facility] [address] [place], [place], [phone] Lymphocytes/100 WBC (Bld) 24.2 % Normal 19-41 [facility] Comment on above: Performed By: #### L 500.4050, L100.0100, L501.1400, L501.6710, L501.77766, L501.5200, L506.0400, L501.2450, L101.9900, L501.9520 ####[facility] [address] [place], [place], [phone] MCH (RBC) [Entitic mass] 29.4 pg Normal 27.0-32.0 [facility] Comment on above: Performed By: #### L 500.4050, L100.0100, L501.1400, L501.6710, L501.60102, L501.5200, L506.0400, L501.2450, L101.9900, L501.9520 ####[facility] [address] [place], [address] MCHC (RBC) [Mass/Vol] 33.4 g/dL Normal 32-36 [facility] Comment on above: Performed By: #### L 500.4050, L100.0100, L501.1400, L501.6710, L501.76064, L501.5200, L506.0400, L501.2450, L101.9900, L501.9520 ####[facility] [address] [place], [address] MCV (RBC) [Entitic vol] 87.9 fL Normal 81-99 [facility] Comment on above: Performed By: #### L 500.4050, L100.0100, L501.1400, L501.6710, L501.42147, L501.5200, L506.0400, L501.2450, L101.9900, L501.9520 ####[facility] [address] [place], [address] Monocytes/100 WBC (Bld) 5.1 % Normal 0-10 [facility] Comment on above: Performed By: #### L 500.4050, L100.0100, L501.1400, L501.6710, L501.78106, L501.5200, L506.0400, L501.2450, L101.9900, L501.9520 ####[facility] [address] [place], [address] Neutrophils/100 WBC (Bld) 68.6 % Normal 47-70 [facility] Comment on above: Performed By: #### L 500.4050, L100.0100, L501.1400, L501.6710, L501.22413, L501.5200, L506.0400, L501.2450, L101.9900, L501.9520 ####[facility] [address] [place], [address] Nucleated RBC (Bld) [#/Vol] 0 10*3/uL Normal 0-5 [facility] Comment on above: Performed By: #### L 500.4050, L100.0100, L501.1400, L501.6710, L501.57863, L501.5200, L506.0400, L501.2450, L101.9900, L501.9520 ####[facility] [address] [place], [address] Platelet mean volume (Bld) [Entitic vol] 9.6 fL Normal 6.2-12.0 [facility] Comment on above: Performed By: #### L 500.4050, L100.0100, L501.1400, L501.6710, L501.78954, L501.5200, L506.0400, L501.2450, L101.9900, L501.9520 ####[facility] [address] [place], [address] Platelets (Bld) [#/Vol] 251 10*3/uL Normal 150-450 [facility] Comment on above: Performed By: #### L 500.4050, L100.0100, L501.1400, L501.6710, L501.70167, L501.5200, L506.0400, L501.2450, L101.9900, L501.9520 ####[facility] [address] [place], [address] RBC (Bld) [#/Vol] 4.94 10*6/uL Normal 4.2-5.4 [facility] Comment on above: Performed By: #### L 500.4050, L100.0100, L501.1400, L501.6710, L501.45014, L501.5200, L506.0400, L501.2450, L101.9900, L501.9520 ####[facility] [address] [place], [address] RDW SD 41.8 fl Normal 35.1-43.9 [facility] Comment on above: Performed By: #### L 500.4050, L100.0100, L501.1400, L501.6710, L501.52905, L501.5200, L506.0400, L501.2450, L101.9900, L501.9520 ####[facility] [address] [place], [place], [phone] WBC (Bld) [#/Vol] 9.7 10*3/uL Normal 4.4-11.0 [facility] Comment on above: Performed By: #### L 500.4050, L100.0100, L501.1400, L501.6710, L501.58260, L501.5200, L506.0400, L501.2450, L101.9900, L501.9520 ####[facility] [address] [place], [address] CRPon 02-04-2025 C-REACTIVE PROT 11.80 mg/L High 0.0-3.0 [facility] Comment on above: Performed By: #### L 500.4050, L100.0100, L501.1400, L501.6710, L501.58855, L501.5200, L506.0400, L501.2450, L101.9900, L501.9520 ####[facility] [address] [place], [place], [id number] Comprehensive Metabolic Prof ilon 02-04-2025 Albumin [Mass/Vol] 4.3 g/dL Normal 3.4-4.8 [facility] Comment on above: Performed By: #### L 500.4050, L100.0100, L501.1400, L501.6710, L501.16657, L501.5200, L506.0400, L501.2450, L101.9900, L501.9520 ####[facility] [address] [place], [place], [id number] Albumin/Globulin [Mass ratio] 1.4 {ratio} Normal 0.9-2.4 [facility] Comment on above: Performed By: #### L 500.4050, L100.0100, L501.1400, L501.6710, L501.24234, L501.5200, L506.0400, L501.2450, L101.9900, L501.9520 ####[facility] [address] [place], [place], [phone] ALK PHOS 112 U/L High 35-104 [facility] Comment on above: Performed By: #### L 500.4050, L100.0100, L501.1400, L501.6710, L501.77187, L501.5200, L506.0400, L501.2450, L101.9900, L501.9520 ####[facility] [address] [place], [address] ALT [Catalytic activity/Vol] 80 U/L High <=34 [facility] Comment on above: Performed By: #### L 500.4050, L100.0100, L501.1400, L501.6710, L501.58696, L501.5200, L506.0400, L501.2450, L101.9900, L501.9520 ####[facility] [address] [place], [address] AST [Catalytic activity/Vol] 60 U/L High <=31 [facility] Comment on above: Performed By: #### L 500.4050, L100.0100, L501.1400, L501.6710, L501.27407, L501.5200, L506.0400, L501.2450, L101.9900, L501.9520 ####[facility] [address] [place], [address] Bilirubin [Mass/Vol] 0.40 mg/dL Normal 0.00-1.30 [facility] Comment on above: Performed By: #### L 500.4050, L100.0100, L501.1400, L501.6710, L501.56701, L501.5200, L506.0400, L501.2450, L101.9900, L501.9520 ####[facility] [address] [place], [address] BUN/CRE 13.8 RATIO Normal 10-20 [facility] Comment on above: Performed By: #### L 500.4050, L100.0100, L501.1400, L501.6710, L501.04912, L501.5200, L506.0400, L501.2450, L101.9900, L501.9520 ####[facility] [address] [place], [address] Calcium [Mass/Vol] 9.5 mg/dL Normal 7.6-11.0 [facility] Comment on above: Performed By: #### L 500.4050, L100.0100, L501.1400, L501.6710, L501.84786, L501.5200, L506.0400, L501.2450, L101.9900, L501.9520 ####[facility] [address] [place], [address] Chloride [Moles/Vol] 101 mmol/L Normal 98-108 [facility] Comment on above: Performed By: #### L 500.4050, L100.0100, L501.1400, L501.6710, L501.02412, L501.5200, L506.0400, L501.2450, L101.9900, L501.9520 ####[facility] [address] [place], [address] CO2 [Moles/Vol] 24.5 mmol/L Normal 21.0-32.0 [facility] Comment on above: Performed By: #### L 500.4050, L100.0100, L501.1400, L501.6710, L501.16306, L501.5200, L506.0400, L501.2450, L101.9900, L501.9520 ####[facility] [address] [place], [address] Creatinine [Mass/Vol] 0.78 mg/dL Normal 0.70-1.20 [facility] Comment on above: Performed By: #### L 500.4050, L100.0100, L501.1400, L501.6710, L501.97459, L501.5200, L506.0400, L501.2450, L101.9900, L501.9520 ####[facility] [address] [place], [place], [id number] GAP 16 High 5-15 [facility] Comment on above: Performed By: #### L 500.4050, L100.0100, L501.1400, L501.6710, L501.28388, L501.5200, L506.0400, L501.2450, L101.9900, L501.9520 ####[facility] [address] [place], [place], [id number] GFR/1.73 sq M.predicted among non-blacks MDRD (S/P/Bld) [Vol rate/Area] 84 mL/min/{1.73_m2} Normal >60 [facility] Comment on above: Result Comment: mL/m in/1.73m2 CKD-EPI Creatinine Equation (2020) Performed By: #### L 500.4050, L100.0100, L501.1400, L501.6710, L501.05626, L501.5200, L506.0400, L501.2450, L101.9900, L501.9520 ####[facility] [address] [place], [place], [id number] Globulin (S) [Mass/Vol] 3.1 g/dL Normal 2.2-4.2 [facility] Comment on above: Performed By: #### L 500.4050, L100.0100, L501.1400, L501.6710, L501.28813, L501.5200, L506.0400, L501.2450, L101.9900, L501.9520 ####[facility] [address] [place], [address] Glucose [Mass/Vol] 247 mg/dL High 70-99 [facility] Comment on above: Performed By: #### L 500.4050, L100.0100, L501.1400, L501.6710, L501.23389, L501.5200, L506.0400, L501.2450, L101.9900, L501.9520 ####[facility] [address] [place], [address] Potassium [Moles/Vol] 4.6 mmol/L Normal 3.3-5.1 [facility] Comment on above: Performed By: #### L 500.4050, L100.0100, L501.1400, L501.6710, L501.60868, L501.5200, L506.0400, L501.2450, L101.9900, L501.9520 ####[facility] [address] [place], [address] Sodium [Moles/Vol] 141 mmol/L Normal 133-145 [facility] Comment on above: Performed By: #### L 500.4050, L100.0100, L501.1400, L501.6710, L501.88286, L501.5200, L506.0400, L501.2450, L101.9900, L501.9520 ####[facility] [address] [place], [address] T PROT 7.4 g/dL Normal 5.9-8.4 [facility] Comment on above: Performed By: #### L 500.4050, L100.0100, L501.1400, L501.6710, L501.97720, L501.5200, L506.0400, L501.2450, L101.9900, L501.9520 ####[facility] [address] [place], [address] Urea nitrogen [Mass/Vol] 11 mg/dL Normal 4-19 [facility] Comment on above: Performed By: #### L 500.4050, L100.0100, L501.1400, L501.6710, L501.32635, L501.5200, L506.0400, L501.2450, L101.9900, L501.9520 ####[facility] [address] [place], [address] Erythrocyte Sed Rateon 02-04 SED RATE 7 mm/hr Normal 0-30 [facility] Comment on above: Performed By: #### L 500.4050, L100.0100, L501.1400, L501.6710, L501.29628, L501.5200, L506.0400, L501.2450, L101.9900, L501.9520 ####[facility] [address] [place], [place], [id number] Free T3on 02-04-2025 Free T3 [Mass/Vol] 2.4 pg/mL Normal 2.18-3.98 [facility] Comment on above: Performed By: #### L 500.4050, L100.0100, L501.1400, L501.6710, L501.04465, L501.5200, L506.0400, L501.2450, L101.9900, L501.9520 ####[facility] [address] [place], [place], [phone] Lipaseon 02-04-2025 Lipase [Catalytic activity/Vol] 42 U/L Normal 13-75 [facility] Comment on above: Result Comment: Sherri martinez note:LIPASE revised reference range effective 22.New Lipase methodology. Expected to produce lower valuesthan the previous assay method.NEW Reference Range: 13 - 75 U/L Performed By: #### L 500.4050, L100.0100, L501.1400, L501.6710, L501.18116, L501.5200, L506.0400, L501.2450, L101.9900, L501.9520 ####[facility] [address] [place], [place], [id number] Magnesiumon 02-04-2025 Magnesium [Mass/Vol] 1.8 mg/dL Normal 1.5-2.2 [facility] Comment on above: Performed By: #### L 500.4050, L100.0100, L501.1400, L501.6710, L501.23905, L501.5200, L506.0400, L501.2450, L101.9900, L501.9520 ####[facility] [address] [place], [place], [phone] T4 Free Directon 02-04-2025 T4 FREE DIRECT 1.20 ng/dL Normal 0.76-1.46 [facility] Comment on above: Performed By: #### L 500.4050, L100.0100, L501.1400, L501.6710, L501.93197, L501.5200, L506.0400, L501.2450, L101.9900, L501.9520 ####[facility] [address] [place], [place], [phone] Thyroid Stim Hormone (TSH)on 02-04-2025 TSH 0.755 uIU/mL Normal 0.300-4.200 [facility] Comment on above: Performed By: #### L 500.4050, L100.0100, L501.1400, L501.6710, L501.68151, L501.5200, L506.0400, L501.2450, L101.9900, L501.9520 ####[facility] [address] [place], [address] Uric Acidon 02-04-2025 URIC 6.8 mg/dL High 2.6-6.0 [facility] Comment on above: Result Comment: The drugs N-Acetylcysteine and Metamizole may falselydepress this assay. Performed By: #### L 500.4050, L100.0100, L501.1400, L501.6710, L501.77410, L501.5200, L506.0400, L501.2450, L101.9900, L501.9520 ####[facility] [address] [place], [address] MR/BMS.BPon 01-07-2025 MR/BMS.BP Normal [facility] Basic Metabolic Profile (BMP )on 01-03-2025 BUN/CRE 18.4 RATIO Normal 10-20 [facility] Comment on above: Performed By: #### L 500.2500, L506.1001 ####[facility] [address] [place], [address] Calcium [Mass/Vol] 8.7 mg/dL Normal 7.6-11.0 [facility] Comment on above: Performed By: #### L 500.2500, L506.1001 ####[facility] [address] [place], [address] Chloride [Moles/Vol] 100 mmol/L Normal 98-108 [facility] Comment on above: Performed By: #### L 500.2500, L506.1001 ####[facility] [address] [place], [address] CO2 [Moles/Vol] 25.8 mmol/L Normal 21.0-32.0 [facility] Comment on above: Performed By: #### L 500.2500, L506.1001 ####[facility] [address], [address] Creatinine [Mass/Vol] 0.71 mg/dL Normal 0.70-1.20 [facility] Comment on above: Performed By: #### L 500.2500, L506.1001 ####[facility] [address] [place], [address] GAP 12 Normal 5-15 [facility] Comment on above: Performed By: #### L 500.2500, L506.1001 ####[facility] [address] [place], [address] GFR/1.73 sq M.predicted among non-blacks MDRD (S/P/Bld) [Vol rate/Area] 94 mL/min/{1.73_m2} Normal >60 [facility] Comment on above: Result Comment: mL/m in/1.73m2 CKD-EPI Creatinine Equation (2020) Performed By: #### L 500.2500, L506.1001 ####[facility] [address] [place], [address] Glucose [Mass/Vol] 293 mg/dL High 70-99 [facility] Comment on above: Performed By: #### L 500.2500, L506.1001 ####[facility] [address] [place], [address] Potassium [Moles/Vol] 4.8 mmol/L Normal 3.3-5.1 [facility] Comment on above: Performed By: #### L 500.2500, L506.1001 ####[facility] [address] [place], [address] Sodium [Moles/Vol] 138 mmol/L Normal 133-145 [facility] Comment on above: Performed By: #### L 500.2500, L506.1001 ####[facility] [address] [place], [address] Urea nitrogen [Mass/Vol] 13 mg/dL Normal 4-19 [facility] Comment on above: Performed By: #### L 500.2500, L506.1001 ####[facility] [address] [place], [address] Vitamin D,25 Hydroxyon 01-03 Vitamin D 25-OH 32.3 ng/mL Normal 30-100 [facility] Comment on above: Result Comment: Ashley min D StatusDeficiency: <20 ng/mL (50nmol/L)Insufficiency: 20-30 ng/mL (50-75 nmol/L)Sufficiency: 30-100 ng/mL (75-250 nmol/L)Toxicity: >100 ng/mL (>250 nmol/L) Performed By: #### L 500.2500, L506.1001 ####[facility] [address] [place], [address] Echo Complete W/ Contraston 11-29-2024 Echo Complete W/ Contrast Normal [facility] Brain/Head without Contrasto n 11-20-2024 Brain/Head without Contrast Normal [facility] Emergency Department Summary on 11-20-2024 Emergency Department Summary Normal [facility] Lumbar Spine 2 or 3 Viewson 11-20-2024 Lumbar Spine 2 or 3 Views Normal [facility] Spine Cervical without Contr ason 11-20-2024 Spine Cervical without Contras Normal [facility] Thoracic Spine 3 Viewson Thoracic Spine 3 Views Normal [facility] Endocrinology Visit Reporton 11-19-2024 Endocrinology Visit Report Normal [facility] Emergency Department Summary on 10-15-2024 Emergency Department Summary Normal [facility] Emergency Department Summary on 10-12-2024 Emergency Department Summary Normal [facility] Endocrinology Visit Reporton 10-08-2024 Endocrinology Visit Report Normal [facility] MR/BMS.BPon 09-03-2024 MR/BMS.BP Normal [facility] Bedside Glucoseon 07-28-2024 FINGERSTICK GLU 200 mg/dL High 74-106 [facility] Comment on above: Result Comment: MARCELLA GEMENT OF PATIENT CARE PER NURSING PROTOCOL Performed By: #### L 501.080 ####[facility] [address] [place], [address] FINGERSTICK GLU 202 mg/dL High 74-106 [facility] Comment on above: Result Comment: MARCELLA GEMENT OF PATIENT CARE PER NURSING PROTOCOL Performed By: #### L 501.080 ####[facility] [address] [place], [address] FINGERSTICK GLU 233 mg/dL High 74-106 [facility] Comment on above: Result Comment: MARCELLA GEMENT OF PATIENT CARE PER NURSING PROTOCOL Performed By: #### L 501.080 ####[facility] [address] [place], [address] Spine Lumbar without Contras ton 07-28-2024 Spine Lumbar without Contrast Normal [facility] 12 Lead EKGon 07-27-2024 12 Lead EKG Normal [facility] Basic Metabolic Profile (BMP )on 07-27-2024 BUN/CRE 14.0 RATIO Normal 10-20 [facility] Comment on above: Performed By: #### L 100.0100, L500.2500 ####[facility] [address] [place], [address] CA,Total 8.9 mg/dL Normal 8.5-10.1 [facility] Comment on above: Performed By: #### L 100.0100, L500.2500 ####[facility] [address] [place], [address] Chloride [Moles/Vol] 99 mmol/L Normal 98-107 [facility] Comment on above: Performed By: #### L 100.0100, L500.2500 ####[facility] [address] [place], [address] CO2 [Moles/Vol] 30.0 mmol/L Normal 21.0-32.0 [facility] Comment on above: Performed By: #### L 100.0100, L500.2500 ####[facility] [address] [place], [address] Creatinine [Mass/Vol] 1.00 mg/dL Normal 0.55-1.02 [facility] Comment on above: Result Comment: The validity of the calculated GFR GFRAA in patients over70 years has not been determined. Clinical correlation isessential. Performed By: #### L 100.0100, L500.2500 ####[facility] [address] [place], [address] ECRCL 69.70 ml/min Normal [facility] Comment on above: Performed By: #### L 100.0100, L500.2500 ####[facility] [address] [place], [address] EST GFR - AA 71 mL/min Normal >60 [facility] Comment on above: Result Comment: Afri can [place] GFR Calc Performed By: #### L 100.0100, L500.2500 ####[facility] [address] [place], [address] GAP 7 Normal 5-15 [facility] Comment on above: Performed By: #### L 100.0100, L500.2500 ####[facility] [address] [place], [address] GFR/1.73 sq M.predicted among non-blacks MDRD (S/P/Bld) [Vol rate/Area] 59 mL/min/{1.73_m2} Low >60 [facility] Comment on above: Result Comment: Non- GFR Calc Performed By: #### L 100.0100, L500.2500 ####[facility] [address] [place], [address] Glucose [Mass/Vol] 421 mg/dL High 74-106 [facility] Comment on above: Result Comment: Gluc ose result greater than or equal to 200 mg/dLsuggests DIABETES MELLITUS per A.D.A. criteria. Performed By: #### L 100.0100, L500.2500 ####[facility] [address] [place], [address] Potassium [Moles/Vol] 4.6 mmol/L Normal 3.5-5.1 [facility] Comment on above: Result Comment: Slig ht Hemolysis, Result may be falsely increased. Performed By: #### L 100.0100, L500.2500 ####[facility] [address] [place], [address] Sodium [Moles/Vol] 135 mmol/L Low 136-145 [facility] Comment on above: Performed By: #### L 100.0100, L500.2500 ####[facility] [address] [place], [address] Urea nitrogen [Mass/Vol] 14 mg/dL Normal 7-18 [facility] Comment on above: Performed By: #### L 100.0100, L500.2500 ####[facility] [address] [place], [address] Bedside Glucoseon 07-27-2024 FINGERSTICK GLU 290 mg/dL High 74-106 [facility] Comment on above: Result Comment: MARCELLA GEMENT OF PATIENT CARE PER NURSING PROTOCOL Performed By: #### L 501.080 ####[facility] [address] [place], [address] FINGERSTICK GLU 360 mg/dL High 74-106 [facility] Comment on above: Result Comment: MARCELLA GEMENT OF PATIENT CARE PER NURSING PROTOCOL Performed By: #### L 501.080 ####[facility] [address] [place], [address] CBC W/Diff, Automatedon - Absolute Lymph 2.09 X10 3/uL Normal 0.83-4.51 [facility] Comment on above: Performed By: #### L 100.0100, L500.2500 ####[facility] [address] [place], [address] Absolute Neut 4.9 X10 3/uL Normal 2.0-7.7 [facility] Comment on above: Performed By: #### L 100.0100, L500.2500 ####[facility] [address] [place], [address] Basophils/100 WBC (Bld) 0.4 % Normal 0-1 [facility] Comment on above: Performed By: #### L 100.0100, L500.2500 ####[facility] [address] [place], [address] Eosinophils/100 WBC (Bld) 1.8 % Normal 0-5 [facility] Comment on above: Performed By: #### L 100.0100, L500.2500 ####[facility] [address] [place], [address] Erythrocyte distribution width (RBC) [Ratio] 13.5 % Normal 11.6-14.6 [facility] Comment on above: Performed By: #### L 100.0100, L500.2500 ####[facility] [address] [place], [address] Hematocrit (Bld) [Volume fraction] 44.6 % Normal 37-47 [facility] Comment on above: Performed By: #### L 100.0100, L500.2500 ####[facility] [address] [place], [address] Hemoglobin (Bld) [Mass/Vol] 14.2 g/dL Normal 12.0-15.0 [facility] Comment on above: Performed By: #### L 100.0100, L500.2500 ####[facility] [address] [place], [address] IG% 0.500 Normal 0.0-0.9 [facility] Comment on above: Result Comment: IG% - Immature Granulocytes (promyelocytes, myelocytes andmetamyelocytes) > 1% indicates that a LEFT SHIFT is Present. Performed By: #### L 100.0100, L500.2500 ####[facility] [address] [place], [address] Lymphocytes/100 WBC (Bld) 27.5 % Normal 19-41 [facility] Comment on above: Performed By: #### L 100.0100, L500.2500 ####[facility] [address] [place], [address] MCH (RBC) [Entitic mass] 28.9 pg Normal 27.0-32.0 [facility] Comment on above: Performed By: #### L 100.0100, L500.2500 ####[facility] [address] [place], [address] MCHC (RBC) [Mass/Vol] 31.8 g/dL Low 32-36 [facility] Comment on above: Performed By: #### L 100.0100, L500.2500 ####[facility] [address] [place], [address] MCV (RBC) [Entitic vol] 90.7 fL Normal 81-99 [facility] Comment on above: Performed By: #### L 100.0100, L500.2500 ####[facility] [address] [place], [address] Monocytes/100 WBC (Bld) 5.5 % Normal 0-10 [facility] Comment on above: Performed By: #### L 100.0100, L500.2500 ####[facility] [address] [place], [address] Neutrophils/100 WBC (Bld) 64.3 % Normal 47-70 [facility] Comment on above: Performed By: #### L 100.0100, L500.2500 ####[facility] [address] [place], [address] Nucleated RBC (Bld) [#/Vol] 0 10*3/uL Normal 0-5 [facility] Comment on above: Performed By: #### L 100.0100, L500.2500 ####[facility] [address] [place], [address] Platelet mean volume (Bld) [Entitic vol] 9.3 fL Normal 6.2-12.0 [facility] Comment on above: Performed By: #### L 100.0100, L500.2500 ####[facility] [address] [place], [address] Platelets (Bld) [#/Vol] 234 10*3/uL Normal 150-450 [facility] Comment on above: Performed By: #### L 100.0100, L500.2500 ####[facility] [address] [place], [address] RBC (Bld) [#/Vol] 4.92 10*6/uL Normal 4.2-5.4 [facility] Comment on above: Performed By: #### L 100.0100, L500.2500 ####[facility] [address] [place], [address] RDW SD 44.1 fl High 35.1-43.9 [facility] Comment on above: Performed By: #### L 100.0100, L500.2500 ####[facility] [address] [place], [address] WBC (Bld) [#/Vol] 7.6 10*3/uL Normal 4.4-11.0 [facility] Comment on above: Performed By: #### L 100.0100, L500.2500 ####[facility] [address] [place], [address] CTA Chest W/WO Contraston CTA Chest W/WO Contrast Normal [facility] Chest PA and Lateralon 07-27 Chest PA and Lateral Normal [facility] Emergency Department Summary on 07-27-2024 Emergency Department Summary Normal [facility] H AND P Exam - Hospitaliston 07-27-2024 H&P Exam - Hospitalist Normal [facility] L501.4020on 07-27-2024 TROPONIN-I HS 5 pg/mL Normal 3.0-54.0 [facility] Comment on above: Order Comment: 'TROP ' Serial specimen #1, #2 or #3: 1 Result Comment: Sherri martinez Note: New Test Units and Gender Specific Reference Ranges. For more information see Policy Stat Procedure [place] High Sensitivity Troponin (TNIH) and attachments. Performed By: #### L 501.4020 ####[facility] [address] [place], [address] Miscellaneous Lab Procedureo n 07-19-2024 MISC LAB TEST Normal [facility] Comment on above: Order Comment: [id number] [...] UR Oxymorphone Negative 300 TESTING PERFORMED AT [facility]. ORIGINAL REPORT ON FILE IN LAB CONTAINS ADDITIONAL TEST SITE INFORMATION. Performed By: #### L 400.2010, L801.1541, L505.5000 ####[facility] [address] [place], [address] Urinalysis, Routine (Dipstic k)on 07-13-2024 BILIRUBIN URINE Negative Normal Negative [facility] Comment on above: Order Comment: CLEAN CATCH Performed By: #### L 400.2010, L801.1541, L505.5000 ####[facility] [address] [place], [address] Clarity (U) Clear Normal Clear [facility] Comment on above: Order Comment: CLEAN CATCH Performed By: #### L 400.2010, L801.1541, L505.5000 ####[facility] [address] [place], [address] Color (U) Yellow Normal Yellow [facility] Comment on above: Order Comment: CLEAN CATCH Performed By: #### L 400.2010, L801.1541, L505.5000 ####[facility] [address] [place], [address] GLUCOSE, UR Normal Normal Normal [facility] Comment on above: Order Comment: CLEAN CATCH Performed By: #### L 400.2010, L801.1541, L505.5000 ####[facility] [address] [place], [address] KETONE UR Negative Normal Negative [facility] Comment on above: Order Comment: CLEAN CATCH Performed By: #### L 400.2010, L801.1541, L505.5000 ####[facility] [address] [place], [address] LEUK ESTERASE 25 /ul Abnormal Negative [facility] Comment on above: Order Comment: CLEAN CATCH Performed By: #### L 400.2010, L801.1541, L505.5000 ####[facility] [address] [place], [address] Nitrite Ql (U) Negative Normal Negative [facility] Comment on above: Order Comment: CLEAN CATCH Performed By: #### L 400.2010, L801.1541, L505.5000 ####[facility] [address] [place], [address] OCCULT BLOOD-UR Negative Normal Negative [facility] Comment on above: Order Comment: CLEAN CATCH Performed By: #### L 400.2010, L801.1541, L505.5000 ####[facility] [address] [place], [address] pH UR 6.0 Normal 5.0 - 8.0 [facility] Comment on above: Order Comment: CLEAN CATCH Performed By: #### L 400.2010, L801.1541, L505.5000 ####[facility] [address] [place], [address] PROT DIPSTX Negative Normal Negative [facility] Comment on above: Order Comment: CLEAN CATCH Performed By: #### L 400.2010, L801.1541, L505.5000 ####[facility] [address] [place], [address] SP.GR. DIPSTX 1.020 Normal 1.002-1.030 [facility] Comment on above: Order Comment: CLEAN CATCH Performed By: #### L 400.2010, L801.1541, L505.5000 ####[facility] [address] [place], [address] UROBILI Normal Normal Normal [facility] Comment on above: Order Comment: CLEAN CATCH Performed By: #### L 400.2010, L801.1541, L505.5000 ####[facility] [address] [place], [address] Urine Drug Screen (VISTA)on 07-13-2024 AMPHETAMINES Negative Normal <1000 ng/mL [facility] Comment on above: Order Comment: MEDTO X Performed By: #### L 400.2010, L801.1541, L505.5000 ####[facility] [address] [place], [address] BARBITIURATES Negative Normal < 200 ng/mL [facility] Comment on above: Order Comment: MEDTO X Performed By: #### L 400.2010, L801.1541, L505.5000 ####[facility] [address] [place], [address] BENZODIAZIPINE Negative Normal < 200 ng/mL [facility] Comment on above: Order Comment: MEDTO X Performed By: #### L 400.2010, L801.1541, L505.5000 ####[facility] [address] [place], [address] COCAINE Negative Normal < 300 ng/mL [facility] Comment on above: Order Comment: MEDTO X Performed By: #### L 400.2010, L801.1541, L505.5000 ####[facility] [address] [place], [address] ECSTACY Negative Normal < 500 ng/mL [facility] Comment on above: Order Comment: MEDTO X Performed By: #### L 400.2010, L801.1541, L505.5000 ####[facility] [address] [place], [address] METHADONE Negative Normal < 300 ng/mL [facility] Comment on above: Order Comment: MEDTO X Performed By: #### L 400.2010, L801.1541, L505.5000 ####[facility] [address] [place], [address] OPIATES Positive Abnormal < 300 ng/mL [facility] Comment on above: Order Comment: MEDTO X Performed By: #### L 400.2010, L801.1541, L505.5000 ####[facility] [address] [place], [address] PCP Negative Normal < 25 ng/mL [facility] Comment on above: Order Comment: MEDTO X Performed By: #### L 400.2010, L801.1541, L505.5000 ####[facility] [address] [place], [address] THC Negative Normal < 50 ng/mL [facility] Comment on above: Order Comment: MEDTO X Performed By: #### L 400.2010, L801.1541, L505.5000 ####[facility] [address] [place], [address] VISTA UDS PH 5 Normal [facility] Comment on above: Order Comment: MEDTO X Performed By: #### L 400.2010, L801.1541, L505.5000 ####[facility] [address] [place], [address] 36on 11-03-2023 36 Name of caller: Flex Contact phone number: [phone] Relationship to Patient: patient Provider: Dr. Landis [...] hours to return their call: No Normal [facility] COLONOSCOPYon 09-06-2023 Colonoscopy Table formatting fro m the original result was not included. Normal [facility] Colonoscopy studyon 09-06-19 Table formatting [...] of bowel preparation was evaluated using the [place] Bowel Preparation Scale with scores of: right [...] PM Specimens No specimens collected Procedure Location [address] [address] Referring Provider Renita Mijares Do [address] [place] [address], [facility] [address] [place] [address] Procedure Provider Renita Mijares DO [facility] Work Phone: [facility] Work Phone: Radiology Study observation (narrative) [facility] Work Phone: .Auto Diffon 02-24-2023 Basophil, Absolute 0.0 10 3/mcL Normal 0.0-0.2 [facility] ([place]) Comment on above: Performed By: #### ROMEO FRANCIS, ANEU #### [address] [address] Basophils/100 WBC (Bld) 0.2 % Normal 0.0-2.5 [facility] ([place]) Comment on above: Performed By: #### ROMEO FRANCIS, ANEU #### [address] [address] Eosinophil, Absolute 0.4 10 3/mcL Normal 0.0-0.4 [facility] ([place]) Comment on above: Performed By: #### ROMEO FRANCIS, ANEU #### [address] [address] Eosinophils/100 WBC (Bld) 3.7 % Normal 0.0-7.0 [facility] ([place]) Comment on above: Performed By: #### ROMEO FRANCIS, ANEU #### [address] [address] Lymphocyte, Absolute 1.9 10 3/mcL Normal 0.8-3.9 [facility] ([place]) Comment on above: Performed By: #### ROMEO FRANCIS, ANEU #### [address] [address] Lymphocytes/100 WBC (Bld) 19.2 % Normal 10.0-50.0 [facility] ([place]) Comment on above: Performed By: #### ROMEO FRANCIS, ANEU #### [address] [address] Monocyte, Absolute 0.6 10 3/mcL Normal 0.2-1.0 [facility] ([place]) Comment on above: Performed By: #### ROMEO FRANCIS, ANEU #### [address] [address] Monocytes/100 WBC (Bld) 6.5 % Normal 1.7-13.0 [facility] ([place]) Comment on above: Performed By: #### ROMEO FRANCIS ANEU #### [address] [address] Neutrophils/100 WBC (Bld) 70.4 % Normal 37.0-80.0 [facility] ([place]) Comment on above: Performed By: #### ROMEO FRANCIS ANEU #### [address] [address] .NEUABSon 02-24-2023 Neutrophil, Absolute 6.9 10 3/mcL High 2.9-6.2 [facility] ([place]) Comment on above: Performed By: #### ROMEO FRANCIS ANEU #### [address] [address] CBCon 02-24-2023 Erythrocyte distribution width (RBC) [Ratio] 14.5 % Normal 11.5-14.5 [facility] ([place]) Comment on above: Performed By: #### ROMEO FRANCIS ANEU #### [address] [address] Hematocrit (Bld) [Volume fraction] 34.4 % Low 37.0-47.0 [facility] ([place]) Comment on above: Performed By: #### ROMEO FRANCIS ANEU #### [address] [address] Hgb 11.4 G/dL Low 12.0-16.0 [facility] ([place]) Comment on above: Performed By: #### ROMEO FRANCIS, ANEU #### [place] [address] [address] MCH (RBC) [Entitic mass] 29.9 pg Normal 27.0-31.2 [facility] ([place]) Comment on above: Performed By: #### ROMEO FRANCIS, ANEU #### [address] [address] MCHC 33.3 G/dL Normal 33.0-37.0 [facility] ([place]) Comment on above: Performed By: #### ROMEO FRANCIS, ANEU #### [address] [place], [place] [address] MCV (RBC) [Entitic vol] 89.7 fL Normal 80.0-94.0 [facility] ([place]) Comment on above: Performed By: #### C ROMEO BRYANT, ANEU #### [address] [place], [place] [address] Platelet 180 10 3/mcL Normal 130-400 [facility] ([place]) Comment on above: Performed By: #### C ROMEO BRYANT, ANEU #### [address] [place], [place] [address] Platelet mean volume (Bld) [Entitic vol] 7.2 fL Low 7.4-10.4 [facility] ([place]) Comment on above: Performed By: #### C ROMEO BRYANT, ANEU #### [address] [address] RBC 3.83 10 6/mcL Low 4.20-5.40 [facility] ([place]) Comment on above: Performed By: #### C ROMEO BRYANT, ANEU #### [address] [address] WBC 9.8 10 3/mcL Normal 4.6-10.8 [facility] ([place]) Comment on above: Performed By: #### C ROMEO BRYANT, ANEU #### [address] [address] LABORATORYOrdered By: Soha Jiang on 02-24-2023 Blood Glucose Testing Reason Routine (02/24/23 11:46 AM) [facility] Glucose [Mass/Vol] 209 mg/dL Invalid Interpretation Code 82 - 115 mg/dL [facility] Blood Glucose Testing Reason Routine (02/24/23 7:05 AM) [facility] Glucose [Mass/Vol] 139 mg/dL Invalid Interpretation Code 82 - 115 mg/dL [facility] LABORATORYOrdered By: SYSTEM SYSTEM on 02-24-2023 Basophil, [...] Basophil, Absolute 0.0 10 3/mcL Normal 0.0-0.2 [facility] ([place]) Comment on above: Performed By: #### B MP, GFR, CBC, ADIFF, ANEU #### [address] [address] Basophils/100 WBC (Bld) 0.1 % Normal 0.0-2.5 [facility] ([place]) Comment on above: Performed By: #### B MP, GFR, CBC, ADIFF, ANEU #### [address] [address] Eosinophil, Absolute 0.0 10 3/mcL Normal 0.0-0.4 [facility] ([place]) Comment on above: Performed By: #### B MP, GFR, CBC, ADIFF, ANEU #### [address] [address] Eosinophils/100 WBC (Bld) 0.1 % Normal 0.0-7.0 [facility] ([place]) Comment on above: Performed By: #### B MP, GFR, CBC, ADIFF, ANEU #### [address] [address] Lymphocyte, Absolute 1.4 10 3/mcL Normal 0.8-3.9 [facility] ([place]) Comment on above: Performed By: #### B MP, GFR, CBC, ADIFF, ANEU #### [address] [address] Lymphocytes/100 WBC (Bld) 12.5 % Normal 10.0-50.0 [facility] ([place]) Comment on above: Performed By: #### B MP, GFR, CBC, ADIFF, ANEU #### [address] [address] Monocyte, Absolute 0.5 10 3/mcL Normal 0.2-1.0 [facility] ([place]) Comment on above: Performed By: #### B MP, GFR, CBC, ADIFF, ANEU #### [address] [address] Monocytes/100 WBC (Bld) 5.0 % Normal 1.7-13.0 [facility] ([place]) Comment on above: Performed By: #### B MP, GFR, CBC, ADIFF, ANEU #### [address] [address] Neutrophils/100 WBC (Bld) 82.3 % High 37.0-80.0 [facility] ([place]) Comment on above: Performed By: #### B MP, GFR, CBC, ADIFF, ANEU #### [address] [address] .GFRon 02-23-2023 GFR 61 ml/min/1.73sqm Normal [facility] ([place]) Comment on above: Result Comment: GFR Population [...] B MP, GFR, CBC, ADIFF, ANEU #### [address] [address] GFR Non- 51 ml/min/1.73sqm Normal [facility] ([place]) Comment on above: Result Comment: GFR Population [...] B MP, GFR, CBC, ADIFF, ANEU #### [address] [address] .NEUABSon 02-23-2023 Neutrophil, Absolute 9.0 10 3/mcL High 2.9-6.2 [facility] ([place]) Comment on above: Performed By: #### B MP, GFR, CBC, ADIFF, ANEU #### [address] [address] BMPon 02-23-2023 BUN/Creatinine Ratio 16 ratio Normal 7-27 [facility] ([place]) Comment on above: Performed By: #### B MP, GFR, CBC, ADIFF, ANEU #### [address] [address] Calcium [Mass/Vol] 8.7 mg/dL Normal 8.4-10.2 [facility] ([place]) Comment on above: Performed By: #### B MP, GFR, CBC, ADIFF, ANEU #### [address] [address] Chloride [Moles/Vol] 103 mmol/L Normal 98-107 [facility] ([place]) Comment on above: Performed By: #### B MP, GFR, CBC, ADIFF, ANEU #### [address] [address] CO2 [Moles/Vol] 30 mmol/L Normal 23-31 [facility] ([place]) Comment on above: Performed By: #### B MP, GFR, CBC, ADIFF, ANEU #### [address] [address] Creatinine [Mass/Vol] 1.09 mg/dL High 0.55-1.02 [facility] ([place]) Comment on above: Performed By: #### B MP, GFR, CBC, ADIFF, ANEU #### [address] [address] Electrolyte Balance 8.0 mEq/L Normal 4.0-15.0 [facility] ([place]) Comment on above: Performed By: #### B MP, GFR, CBC, ADIFF, ANEU #### [address] [address] Glucose [Mass/Vol] 239 mg/dL High 80-115 [facility] ([place]) Comment on above: Performed By: #### B MP, GFR, CBC, ADIFF, ANEU #### [address] [address] Potassium [Moles/Vol] 4.8 mmol/L Normal 3.5-5.1 [facility] ([place]) Comment on above: Performed By: #### B MP, GFR, CBC, ADIFF, ANEU #### [address] [address] Sodium [Moles/Vol] 141 mmol/L Normal 136-145 [facility] ([place]) Comment on above: Performed By: #### B MP, GFR, CBC, ADIFF, ANEU #### [address] [address] Urea nitrogen [Mass/Vol] 17 mg/dL Normal 7-18 [facility] ([place]) Comment on above: Performed By: #### B MP, GFR, CBC, ADIFF, ANEU #### [address] [address] CBCon 02-23-2023 Erythrocyte distribution width (RBC) [Ratio] 14.4 % Normal 11.5-14.5 [facility] ([place]) Comment on above: Performed By: #### B MP, GFR, CBC, ADIFF, ANEU #### [address] [address] Hematocrit (Bld) [Volume fraction] 34.9 % Low 37.0-47.0 [facility] ([place]) Comment on above: Performed By: #### B MP, GFR, CBC, ADIFF, ANEU #### [address] [address] Hgb 11.6 G/dL Low 12.0-16.0 [facility] ([place]) Comment on above: Performed By: #### B MP, GFR, CBC, ADIFF, ANEU #### [address] [address] MCH (RBC) [Entitic mass] 29.6 pg Normal 27.0-31.2 [facility] ([place]) Comment on above: Performed By: #### B MP, GFR, CBC, ADIFF, ANEU #### [address] [address] MCHC 33.1 G/dL Normal 33.0-37.0 [facility] ([place]) Comment on above: Performed By: #### B MP, GFR, CBC, ADIFF, ANEU #### [address] [address] MCV (RBC) [Entitic vol] 89.4 fL Normal 80.0-94.0 [facility] ([place]) Comment on above: Performed By: #### B MP, GFR, CBC, ADIFF, ANEU #### [address] [address] Platelet 231 10 3/mcL Normal 130-400 [facility] ([place]) Comment on above: Performed By: #### B MP, GFR, CBC, ADIFF, ANEU #### [address] [address] Platelet mean volume (Bld) [Entitic vol] 7.4 fL Normal 7.4-10.4 [facility] ([place]) Comment on above: Performed By: #### B MP, GFR, CBC, ADIFF, ANEU #### [address] [address] RBC 3.90 10 6/mcL Low 4.20-5.40 [facility] ([place]) Comment on above: Performed By: #### B MP, GFR, CBC, ADIFF, ANEU #### [facility] [address] [place], [place] [address] WBC 10.9 10 3/mcL High 4.6-10.8 [facility] ([place]) Comment on above: Performed By: #### B MP, GFR, CBC, ADIFF, ANEU #### [facility] [address] [place], [place] [address] LABORATORYOrdered By: Jacob Farmer on 02-23-2023 Glucose [Mass/Vol] 171 mg/dL Invalid Interpretation Code 82 - 115 mg/dL [facility] LABORATORYOrdered By: Eduardo Ghotra on 02-23-2023 Blood Glucose Testing Reason Routine (02/23/23 9:26 PM) [facility] LABORATORYOrdered By: Freddy Salomon on 02-23-2023 Stated Blood Glucose [address] [facility] LABORATORYOrdered By: Robert Wright on 02-23-2023 Basophil, [...] 02-22-2023 ABO/Rh Interp Negative Invalid Interpretation Code [facility] ([place]) Comment on above: Performed By: #### CASEY SPANGLER #### [address] [place], [place] [address] Gel ABSon 02-22-2023 Antibody Screen Gel Negative Normal [facility] ([place]) Comment on above: Performed By: #### CSAEY SPANGLER #### [facility] [address] [place], [place] [address] LABORATORYOrdered By: Kiran Harding on 02-22-2023 Stated Blood Glucose [address] [facility] LABORATORYOrdered By: Aline weiss on 02-22-2023 Stated Blood Glucose [address] [facility] Time of Stated Blood Glucose [id number] [facility] LABORATORYOrdered By: Ann Marie Joiner on 02-22-2023 [...] Date: 02/22/2023 1:07:27 PM Ordering Provider: PJ MAUR [facility] ([place]) CT KNEE W/O CONTRAST RIGHTon 02-04-2023 CT [...] 02/04/2023 9:09:05 AM Ordering Provider: PJ MAHONEY [facility] ([place]) .Auto Diffon 02-03-2023 Basophil, Absolute 0.0 10 3/mcL Normal 0.0-0.2 [facility] ([place]) Comment on above: Performed By: #### C ROMEO BRYANT, ANEU #### [address] [address] Basophils/100 WBC (Bld) 0.5 % Normal 0.0-2.5 [facility] ([place]) Comment on above: Performed By: #### C ROMEO BRYANT, ANEU #### [address] [address] Eosinophil, Absolute 0.1 10 3/mcL Normal 0.0-0.4 [facility] ([place]) Comment on above: Performed By: #### C ROMEO BRYANT, ANEU #### [address] [address] Eosinophils/100 WBC (Bld) 2.0 % Normal 0.0-7.0 [facility] ([place]) Comment on above: Performed By: #### C ORMEO BRYANT, ANEU #### [address] [address] Lymphocyte, Absolute 2.2 10 3/mcL Normal 0.8-3.9 [facility] ([place]) Comment on above: Performed By: #### ROMEO FRANCIS, ANEU #### [address] [address] Lymphocytes/100 WBC (Bld) 29.2 % Normal 10.0-50.0 [facility] ([place]) Comment on above: Performed By: #### C ROMEO BRYANT, ANEU #### [address] [address] Monocyte, Absolute 0.5 10 3/mcL Normal 0.2-1.0 [facility] ([place]) Comment on above: Performed By: #### ROMEO FRANCIS, ANEU #### [address] [address] Monocytes/100 WBC (Bld) 6.3 % Normal 1.7-13.0 [facility] ([place]) Comment on above: Performed By: #### C ROMEO BRYANT, ANEU #### [address] [place], [place] [address] Neutrophils/100 WBC (Bld) 62.0 % Normal 37.0-80.0 [facility] ([place]) Comment on above: Performed By: #### C ROMEO BRYANT, ANEU #### [address] [place], [place] [address] .GFRon 02-03-2023 GFR 74 ml/min/1.73sqm Normal [facility] ([place]) Comment on above: Result Comment: GFR Population [...] #### C ROMEO BRYANT, ANEU #### [address] [place], [place] [address] GFR Non- 61 ml/min/1.73sqm Normal [facility] ([place]) Comment on above: Result Comment: GFR Population [...] Performed By: #### ROMEO FRANCIS, ANEU #### [address] [address] .NEUABSon 02-03-2023 Neutrophil, Absolute 4.7 10 3/mcL Normal 2.9-6.2 [facility] ([place]) Comment on above: Performed By: #### ROMEO FRANCIS, ANEU #### [address] [address] A1Con 02-03-2023 HbA1c (Bld) [Mass fraction] 6.7 % High 4.3-6.4 [facility] ([place]) Comment on above: Performed By: #### ROMEO FRANCIS, ANEU #### [address] [address] ALBon 02-03-2023 Albumin Level 3.6 G/dL Normal 3.4-4.8 [facility] ([place]) Comment on above: Performed By: #### ROMEO FRANCIS, ANEU #### [address] [address] BMPon 02-03-2023 BUN/Creatinine Ratio 23 ratio Normal 7-27 [facility] ([place]) Comment on above: Performed By: #### ROMEO FRANCIS, ANEU #### [address] [address] Calcium [Mass/Vol] 8.9 mg/dL Normal 8.4-10.2 [facility] ([place]) Comment on above: Performed By: #### ROMEO FRANCIS, ANEU #### [address] [address] Chloride [Moles/Vol] 100 mmol/L Normal 98-107 [facility] ([place]) Comment on above: Performed By: #### ROMEO FRANCIS, ANEU #### [address] [address] CO2 [Moles/Vol] 30 mmol/L Normal 23-31 [facility] ([place]) Comment on above: Performed By: #### ROMEO FRANCIS, ANEU #### [address] [address] Creatinine [Mass/Vol] 0.93 mg/dL Normal 0.55-1.02 [facility] ([place]) Comment on above: Performed By: #### C ROMEO BRYANT, ANEU #### [address] [address] Electrolyte Balance 9.0 mEq/L Normal 4.0-15.0 [facility] ([place]) Comment on above: Performed By: #### C ROMEO BRYANT, ANEU #### [address] [address] Glucose [Mass/Vol] 258 mg/dL High 80-115 [facility] ([place]) Comment on above: Performed By: #### C ROMEO BRYANT, ANEU #### [address] [address] Potassium [Moles/Vol] 4.7 mmol/L Normal 3.5-5.1 [facility] ([place]) Comment on above: Performed By: #### C ROMEO BRYANT, ANEU #### [address] [address] Sodium [Moles/Vol] 139 mmol/L Normal 136-145 [facility] ([place]) Comment on above: Performed By: #### C ROMEO BRYANT, ANEU #### [address] [address] Urea nitrogen [Mass/Vol] 21 mg/dL High 7-18 [facility] ([place]) Comment on above: Performed By: #### C ROMEO BRYANT, ANEU #### [address] [address] CBCon 02-03-2023 Erythrocyte distribution width (RBC) [Ratio] 15.2 % High 11.5-14.5 [facility] ([place]) Comment on above: Order Comment: Pre-A dmission Testing Performed By: #### C ROMEO BRYANT, ANEU #### [address] [address] Hematocrit (Bld) [Volume fraction] 36.6 % Low 37.0-47.0 [facility] ([place]) Comment on above: Order Comment: Pre-A dmission Testing Performed By: #### C BCROMEO, ANEU #### [address] [address] Hgb 12.0 G/dL Normal 12.0-16.0 [facility] ([place]) Comment on above: Order Comment: Pre-A dmission Testing Performed By: #### C BCROMEO, ANEU #### [address] [address] MCH (RBC) [Entitic mass] 29.5 pg Normal 27.0-31.2 [facility] ([place]) Comment on above: Order Comment: Pre-A dmission Testing Performed By: #### C BCROMEO, ANEU #### [address] [address] MCHC 32.8 G/dL Low 33.0-37.0 [facility] ([place]) Comment on above: Order Comment: Pre-A dmission Testing Performed By: #### C BCROMEO, ANEU #### [address] [address] MCV (RBC) [Entitic vol] 90.0 fL Normal 80.0-94.0 [facility] ([place]) Comment on above: Order Comment: Pre-A dmission Testing Performed By: #### C BCROMEO, ANEU #### [address] [address] Platelet 234 10 3/mcL Normal 130-400 [facility] ([place]) Comment on above: Order Comment: Pre-A dmission Testing Performed By: #### C BCROMEO, ANEU #### [address] [address] Platelet mean volume (Bld) [Entitic vol] 7.0 fL Low 7.4-10.4 [facility] ([place]) Comment on above: Order Comment: Pre-A dmission Testing Performed By: #### C BCROMEO, ANEU #### [address] [address] RBC 4.07 10 6/mcL Low 4.20-5.40 [facility] ([place]) Comment on above: Order Comment: Pre-A dmission Testing Performed By: #### C BC, ADIFF, ANEU #### [address] [address] WBC 7.5 10 3/mcL Normal 4.6-10.8 [facility] ([place]) Comment on above: Order Comment: Pre-A dmission Testing Performed By: #### C BC, ADIFF, ANEU #### [address] [address] Gel ABOon 02-03-2023 ABO/Rh Interp Negative Invalid Interpretation Code [facility] ([place]) Comment on above: Order Comment: SURG EDMOND / -AC Performed By: #### C BC, ADIFF, ANEU #### [address] [address] Gel ABSon 02-03-2023 Antibody Screen Gel Negative Normal [facility] ([place]) Comment on above: Order Comment: SURG EDMOND 27 -AC Performed By: #### C BC, ADIFF, ANEU #### [address] [address] LABORATORYOrdered By: Ann Marie Joiner on 02-03-2023 [...] peptide B (Bld) [Mass/Vol] 14.9 pg/mL 0-100 [facility] Basophil percentageOrdered B y: Dr. Mckeon on 09-17-2022 Chloride [Moles/Vol] 97 mmol/L 98-107 [facility] Glucose [Mass/Vol] 146 mg/dL 74-106 [facility] Comment on above: Fasting Glucose resu lt greater than or equal to 126 mg/dL suggests DIABETES MELLITUS per A.D.A. criteria. Potassium [Moles/Vol] 3.6 mmol/L 3.5-5.1 [facility] Sodium [Moles/Vol] 139 mmol/L 136-145 [facility] Glucose Glucometer (BldC) [M ass/Vol]Ordered By: Dr. Anderson on 09-17-2022 Glucose [Mass/Vol] 129 mg/dL 74-106 [facility] Comment on above: MANAGEMENT OF PATIEN T CARE PER NURSING PROTOCOL Influenza virus A and B and SARS-CoV-2 (COVID-19) Ag panel - Upper respiratory specimOrdered By: Dr. Anderson on 09-17-2022 SARS-CoV-2 (COVID-19) RNA ROJELIO+probe Ql (Resp) [facility] Laboratory - Chemistry and C hemistry - challengeOrdered By: Dr. Mckeon on 09-17-2022 CO2 [Moles/Vol] 32.0 mmol/L 21.0-32.0 [facility] Urea nitrogen/Creatinine [Mass ratio] 18.4 mg/mg 10- [facility] No Panel InformationOrdered By: Dr. Mckeon on 09-17-2022 Estimated Creatinine Clearance Calc 56.41 ml/min [facility] Estimated GFR (MDRD) Amer 84 mL/min >60 [facility] Comment on above: GFR Calc Estimated GFR (MDRD) Non-Af Amer 70 mL/min >60 [facility] Comment on above: Non- GFR Calc Serum or plasma calcium dread urement (mass/volume)Ordered By: Dr. Mckeon on 09-17-2022 Calcium [Mass/Vol] 8.8 mg/dL 8.5-10.1 [facility] Serum or plasma creatinine m easurement (mass/volume)Ordered By: Dr. Mckeon on 09-17-2022 Creatinine [Mass/Vol] 0.87 mg/dL 0.55-1.02 [facility] Comment on above: The validity of the calculated GFR & GFRAA in patients over 70 years has not been determined. Clinical correlation is essential. Serum or plasma urea nitroge n measurement (mass/volume)Ordered By: Dr. Mckeon on 09-17-2022 Urea nitrogen [Mass/Vol] 16 mg/dL 7-18 [facility] Thin prep Papanicolaou smear with manual screeningOrdered By: Dr. Mckeon on 09-17-2022 Thin prep Papanicolaou smear with manual screening 10 5-15 [facility] Absolute lymphocyte countOrd ered By: Dr. Dee on 09-16-2022 Lymphocytes Auto (Unsp spec) [#/Vol] 1.58 10*3/uL 0.83-4.51 [facility] Assessment of wrist artery p atency prior to arterial punctureOrdered By: Dr. Dee on 09-16-2022 Arterial patency Wrist artery --pre arterial puncture Positive [facility] Base excessOrdered By: Dr. Krystin dean on 09-16-2022 Base excess Calc (BldV) [Moles/Vol] 7 mmol/L -2-2 [facility] Basophil percentageOrdered B y: Dr. Dee on 09-16-2022 Basophil percentage 31.9 mmol/L 22-26 [facility] Basophils/100 WBC (Bld) 95 % 95-99 [facility] Basophil percentage 0 SEEN /hpf 0-5 [facility] Basophils/100 WBC (Bld) 0.4 % 0-1 [facility] Eosinophils/100 WBC (Bld) 3.3 % 0-5 [facility] Neutrophils (Bld) [#/Vol] 5.8 10*3/uL 2.0-7.7 [facility] Neutrophils/100 WBC (Bld) 69.5 % 47-70 [facility] WBC (Bld) [#/Vol] 8.4 10*3/uL 4.4-11.0 [facility] Bilirubin Test strip Ql (U)O rdered By: Dr. Dee on 09-16-2022 Bilirubin Ql (U) Negative Negative [facility] Blood erythrocytes count (nu mber/volume)Ordered By: Dr. Dee on 09-16-2022 RBC (Bld) [#/Vol] 4.41 10*6/uL 4.2-5.4 [facility] Blood hemoglobin measurement (mass/volume)Ordered By: Dr. Dee on 09-16-2022 Hemoglobin (Bld) [Mass/Vol] 12.2 g/dL 12.0-15.0 [facility] Blood lymphocytes/100 leukoc ytesOrdered By: Dr. Dee on 09-16-2022 Lymphocytes/100 WBC (Bld) 18.8 % - [facility] Blood monocytes/100 leukocyt esOrdered By: Dr. Dee on 09-16-2022 Monocytes/100 WBC (Bld) 7.5 % 0-10 [facility] Blood platelet mean volumeOr dered By: Dr. Dee on 09-16-2022 Platelet mean volume (Bld) [Entitic vol] 10.1 fL 6.2-12.0 [facility] CO2 (BldA) [Partial pressure ]Ordered By: Dr. Dee on 09-16-2022 CO2 (Bld) [Partial pressure] 53.2 mm[Hg] 35-45 [facility] Determination of erythrocyte mean corpuscular volume (MCV)Ordered By: Dr. Dee on 09-16-2022 MCV (RBC) [Entitic vol] 90.0 fL 81-99 [facility] Hematocrit Auto (Bld) [Volum e fraction]Ordered By: Dr. Dee on 09-16-2022 Hematocrit (Bld) [Volume fraction] 39.7 % 37-47 [facility] Ketones Test strip Ql (U)Ord ered By: Dr. Dee on 09-16-2022 Ketones Ql (U) Negative Negative [facility] Laboratory - Chemistry and C hemistry - challengeOrdered By: Dr. Dee on 09-16-2022 Natriuretic peptide B (Bld) [Mass/Vol] 76.4 pg/mL 0-100 [facility] Laboratory - Hematology and Cell countsOrdered By: Dr. Dee on 09-16-2022 Erythrocyte distribution width (RBC) [Entitic vol] 45.8 fL 35.1-43.9 [facility] Erythrocyte distribution width (RBC) [Ratio] 14.1 % 11.6-14.6 [facility] Immature granulocytes/100 WBC (Bld) 0.500 % 0.0-0.9 [facility] Comment on above: IG% - Immature Granu locytes (promyelocytes, myelocytes and metamyelocytes) > 1% indicates that a LEFT SHIFT is Present. MCH (RBC) [Entitic mass] 27.7 pg 27.0-32.0 [facility] Nucleated RBC/100 WBC (Bld) [Ratio] 0 % 0-5 [facility] MCHC Auto (RBC) [Mass/Vol]Or dered By: Dr. Dee on 09-16-2022 MCHC (RBC) [Mass/Vol] 30.7 g/dL 32-36 [facility] Mucus LM Ql (Urine sed)Order ed By: Dr. Dee on 09-16-2022 Mucus Ql (Urine sed) 0 SEEN /hpf [facility] Nitrite Test strip Ql (U)Ord ered By: Dr. Dee on 09-16-2022 Nitrite Ql (U) Negative Negative [facility] No Panel InformationOrdered By: Dr. Dee on 09-16-2022 Blood Gas Liter Flow 2.0 /min [facility] Blood Gas Sample Site L Radial [facility] Blood Gas Specimen Type ART [facility] Blood Gas Total CO2 34 mmol/L [facility] Oxygen Delivery Device Cannula [facility] Troponin I High Sensitivity 6 pg/mL 3.0-54.0 [facility] Comment on above: Please Note: New Selene t Units and Gender Specific Reference Ranges. For more information see Policy Stat Procedure [place] High Sensitivity Troponin (TNIH) and attachments. Oxygen (BldA) [Partial press ure]Ordered By: Dr. Dee on 09-16-2022 Oxygen (Bld) [Partial pressure] 79 mmHG 75-100 [facility] Platelets bldOrdered By: Dr. Dee on 09-16-2022 Platelets (Bld) [#/Vol] 254 10*3/uL 150-450 [facility] Protein Test strip Ql (U)Ord ered By: Dr. Dee on 09-16-2022 Protein Ql (U) Negative Negative [facility] Squamous epithelial cells de tection in urine sediment by light microscopyOrdered By: Dr. Dee on 09-16-2022 Epithelial cells.squamous LM Ql (Urine sed) 0-5 SEEN /hpf 5-10 [facility] Urine blood detectionOrdered By: Dr. Dee on 09-16-2022 RBC Ql (U) Negative Negative [facility] RBC Ql (U) 0 SEEN /hpf 0-5 [facility] Urine clarityOrdered By: Dr. Dee on 09-16-2022 Clarity (U) Clear Clear [facility] Urine color determinationOrd ered By: Dr. Dee on 09-16-2022 Color (U) Yellow Yellow [facility] Urine glucose detectionOrder ed By: Dr. Dee on 09-16-2022 Glucose Ql (U) Normal mg/dl Normal [facility] Urine leukocyte esterase det ection by dipstickOrdered By: Dr. Dee on 09-16-2022 Leukocyte esterase Test strip Ql (U) Negative Negative [facility] Urine pHOrdered By: Dr. Lloyd joshi on 09-16-2022 pH (U) 7.0 [pH] 5.0 - 8.0 [facility] Urine sediment bacteria coun t by microscopy (number/high power field)Ordered By: Dr. Dee on 09-16-2022 Bacteria LM.HPF (Urine sed) [#/Area] 0 /[HPF] None Seen [facility] Urine specific gravity measu rementOrdered By: Dr. Dee on 09-16-2022 Specific gravity (U) [Rel density] 1.005 1.002-1.030 [facility] Urobilinogen Auto test strip Ql (U)Ordered By: Dr. Dee on 09-16-2022 Urobilinogen Ql (U) Normal mg/dl Normal [facility] pH measurementOrdered By: Dr Nikhil Dee on 09-16-2022 pH (Unsp spec) 7.39 [pH] 7.35-7.45 [facility] No Panel InformationOrdered By: Dr. Shaw on 09-15-2022 D-Dimer Quantitative (PE/DVT) 0.65 FEU/ug/m 0.27-0.49 [facility] Comment on above: D-Dimer ELEVATED (>0 .49): Additional studies and clinicalassessments are indicated to conclude diagnosis of:Deep Vein Thrombosis (DVT) or Pulmonary Embolism (PE)CRITICAL VALUE VERIFIED. CALLED TO SHELDON CHILEL09/15/22 Cliff7 Jocy Leal.RESULTS READ BACK BY SAME. Laboratory - Hematology and Cell countson 09-13-2022 HbA1c (Bld) [Mass fraction] 7.1 % [facility] Laboratory - Drug toxicology Ordered By: Dr. Trejo on 07-07-2022 Amphetamines Ql (U) Negative <1000 ng/mL [facility] Benzodiazepines Ql (U) Negative < 200 ng/mL [facility] Cannabinoids Screen Ql (U) Negative < 50 ng/mL [facility] Cocaine Ql (U) Negative < 300 ng/mL [facility] Opiates Ql (U) Positive < 300 ng/mL [facility] No Panel InformationOrdered By: Dr. Trejo on 07-07-2022 MDMA (Ecstasy) Screen Negative < 500 ng/mL [facility] Miscellaneous Test See comment [facility] Comment on above: [id number] 6+OXYCODONE-B UND (ng/mL) DRUG RESULT SCREEN CUTOFF____ [...] 300 Oxymorphone Negative 300 TESTING PERFORMED AT [facility]. ORIGINAL REPORT ON FILE IN LAB CONTAINS ADDITIONAL TEST SITE INFORMATION. Urine Barbiturates Screen Negative < 200 ng/mL [facility] Urine Drug Screen Comment [facility] Comment on above: CONFIRMATORY TESTING FOR [...] TESTING MUST BE ORDERED SEPARATELY. USE TESTMNEMONIC: [facility] Urine Methadone Screen Negative < 300 ng/mL [facility] Urine phencyclidine (PCP) de tectionOrdered By: Dr. Trejo on 07-07-2022 Phencyclidine Ql (U) Negative < 25 ng/mL [facility] ([facility]) FLEX WOOTEN ([id number]) 1960 F Date Time Provider Department 06/23/22 NICOLÁS AGGARWAL During your visit today, we recorded the following information about you: Mendy Adams RN 06/23/2022 8:51 AM Signed I left a message for Cary at [employer] regarding their addendum request. 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 Weller, [facility] SIGMOIDOSCOPY FLX DX W/COLLJ SPEC BR/WA [...] Worsening Previous (more content not included)... Normal [facility] Laboratory - Hematology and Cell countson 05-19-2022 HbA1c (Bld) [Mass fraction] 7.5 % [facility] Work Phone: XR FOOT 3V AP/LAT/OBL [...] noted. IMPRESSION: Remote postoperative and degenerative changes. 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: JUANITA Transcribe Date/Time: May 19 2022 10:24A Dictated by : ARACELY COATES MD This examination was interpreted and the report reviewed and electronically signed by: ARACELY COATES MD on May 19 2022 10:25AM EST [id number] Normal [facility] XR FOOT GENERAL 3V AP/LAT/OB L LEFTon 05-19-2022 [facility] Absolute lymphocyte counton 01-31-2022 Lymphocytes Auto (Unsp spec) [#/Vol] 0.87 10*3/uL 0.83-4.51 [facility] Work Phone: [phone] Basophil percentageon 2021 Basophil percentage 0 SEEN /hpf [facility] Work Phone: Basophils/100 WBC (Bld) 0.4 % 0-1 [facility] Work Phone: Bilirubin [Mass/Vol] 0.30 mg/dL 0.20-1.00 [facility] Work Phone: Comment on above: For patients on eltr ombopag therapy, use of Dimension [place] TBIL is not recommended. Chloride [Moles/Vol] 103 mmol/L 98-107 [facility] Work Phone: Eosinophils/100 WBC (Bld) 0.0 % 0-5 [facility] Work Phone: Glucose [Mass/Vol] 545 mg/dL 74-106 [facility] Work Phone: Comment on above: Critical Result(s) C alled at: 00:43:30 01/31/2022 by: PERRY IGLESIAS TO RICA STEPHEN. Results read back by same.Glucose result greater than or equal to 200 mg/dLsuggests DIABETES MELLITUS per A.D.A. criteria. Neutrophils (Bld) [#/Vol] 7.0 10*3/uL 2.0-7.7 [facility] Work Phone: [phone] Neutrophils/100 WBC (Bld) 78.6 % 47-70 [facility] Work Phone: Potassium [Moles/Vol] 4.6 mmol/L 3.5-5.1 [facility] Work Phone: Comment on above: Moderate Hemolysis, Result may be falsely increased. Protein [Mass/Vol] 7.4 g/dL 6.4-8.2 [facility] Work Phone: Sodium [Moles/Vol] 135 mmol/L 136-145 [facility] Work Phone: WBC (Bld) [#/Vol] 8.9 10*3/uL 4.4-11.0 [facility] Work Phone: Bilirubin Test strip Ql (U)o n 01-31-2022 Bilirubin Ql (U) Negative Negative [facility] Work Phone: Blood erythrocytes count (nu mber/volume)on 01-31-2022 RBC (Bld) [#/Vol] 4.98 10*6/uL 4.2-5.4 [facility] Work Phone: Blood hemoglobin measurement (mass/volume)on 01-31-2022 Hemoglobin (Bld) [Mass/Vol] 13.5 g/dL 12.0-15.0 [facility] Work Phone: Blood lymphocytes/100 leukoc yteson 01-31-2022 Lymphocytes/100 WBC (Bld) 9.8 % 19-41 [facility] Work Phone: Blood monocytes/100 leukocyt eson 01-31-2022 Monocytes/100 WBC (Bld) 6.4 % 0-10 [facility] Work Phone: Blood platelet mean volumeon 01-31-2022 Platelet mean volume (Bld) [Entitic vol] 9.6 fL 6.2-12.0 [facility] Work Phone: Determination of erythrocyte mean corpuscular volume (MCV)on 01-31-2022 MCV (RBC) [Entitic vol] 85.7 fL 81-99 [facility] Work Phone: Glucose Glucometer (BldC) [M ass/Vol]on 01-31-2022 Glucose [Mass/Vol] 399 mg/dL 74-106 [facility] Work Phone: Comment on above: MANAGEMENT OF PATIEN T CARE PER NURSING PROTOCOL HCO3 (BldA) [Moles/Vol]on HCO3 (Bld) [Moles/Vol] 25 mmol/L 22-26 [facility] Work Phone: Hematocrit Auto (Bld) [Volum e fraction]on 01-31-2022 Hematocrit (Bld) [Volume fraction] 42.7 % 37-47 [facility] Work Phone: Ketones Test strip Ql (U)on 01-31-2022 Ketones Ql (U) Negative Negative [facility] Work Phone: Laboratory - Chemistry and C hemistry - challengeon 01-31-2022 CO2 [Moles/Vol] 26 mmol/L 23-33 [facility] Work Phone: ALP [Catalytic activity/Vol] 89 U/L 45-117 [facility] Work Phone: ALT [Catalytic activity/Vol] 44 U/L 13-56 [facility] Work Phone: CO2 [Moles/Vol] 26.0 mmol/L 21.0-32.0 [facility] Work Phone: Globulin (S) [Mass/Vol] 4.0 g/dL 2.2-4.2 [facility] Work Phone: Urea nitrogen/Creatinine [Mass ratio] 24.0 mg/mg 10-20 [facility] Work Phone: Laboratory - Hematology and Cell countson 01-31-2022 Erythrocyte distribution width (RBC) [Entitic vol] 46.8 fL 35.1-43.9 [facility] Work Phone: Erythrocyte distribution width (RBC) [Ratio] 14.9 % 11.6-14.6 [facility] Work Phone: Immature granulocytes/100 WBC (Bld) 4.800 % 0.0-0.9 [facility] Work Phone: Comment on above: IG% - Immature Granu locytes (promyelocytes, myelocytes and metamyelocytes) > 1% indicates that a LEFT SHIFT is Present. MCH (RBC) [Entitic mass] 27.1 pg 27.0-32.0 [facility] Work Phone: Nucleated RBC/100 WBC (Bld) [Ratio] 0 % 0-5 [facility] Work Phone: MCHC Auto (RBC) [Mass/Vol]on 01-31-2022 MCHC (RBC) [Mass/Vol] 31.6 g/dL 32-36 [facility] Work Phone: Mucus LM Ql (Urine sed)on Mucus Ql (Urine sed) 0 SEEN /hpf [facility] Work Phone: Nitrite Test strip Ql (U)on 01-31-2022 Nitrite Ql (U) Negative Negative [facility] Work Phone: No Panel Informationon 01-31 Bed Mix Venous Bld PCO2 at Pat Temp 43.6 mmHg 41-51 [facility] Work Phone: Blood Gas Specimen Type REJI [facility] Work Phone: Venous Blood Base Excess -1 mmol/L -1.0-3.5 [facility] Work Phone: Estimated Creatinine Clearance Calc 39.78 ml/min [facility] Work Phone: Estimated GFR (MDRD) Amer 56 mL/min >60 [facility] Work Phone: Comment on above: GFR Calc Estimated GFR (MDRD) Non-Af Amer 46 mL/min >60 [facility] Work Phone: Comment on above: Non- GFR Calc PO2 venouson 06-05-2022 Oxygen (BldV) [Partial pressure] 42 mm[Hg] 25-40 [facility] Work Phone: Platelets bldon 01-31-2022 Platelets (Bld) [#/Vol] 317 10*3/uL 150-450 [facility] Work Phone: Protein Test strip Ql (U)on 01-31-2022 Protein Ql (U) Negative Negative [facility] Work Phone: Serum or plasma acetone dread urement (mass/volume)on 01-31-2022 Acetone [Mass/Vol] Negative NEG [facility] Work Phone: Serum or plasma albumin dread urement (mass/volume)on 01-31-2022 Albumin [Mass/Vol] 3.4 g/dL 3.2-5.0 [facility] Work Phone: Serum or plasma albumin/glob ulin mass ratioon 01-31-2022 Albumin/Globulin [Mass ratio] 0.8 {ratio} 0.9-2.4 [facility] Work Phone: Serum or plasma calcium dread urement (mass/volume)on 01-31-2022 Calcium [Mass/Vol] 8.7 mg/dL 8.5-10.1 [facility] Work Phone: Serum or plasma creatinine m easurement (mass/volume)on 01-31-2022 Creatinine [Mass/Vol] 1.25 mg/dL 0.55-1.02 [facility] Work Phone: Comment on above: The validity of the calculated GFR & GFRAA in patients over 70 years has not been determined. Clinical correlation is essential. Serum or plasma urea nitroge n measurement (mass/volume)on 01-31-2022 Urea nitrogen [Mass/Vol] 30 mg/dL 7-18 [facility] Work Phone: Squamous epithelial cells de tection in urine sediment by light microscopyon 01-31-2022 Epithelial cells.squamous LM Ql (Urine sed) 0 SEEN /hpf [facility] Work Phone: Thin prep Papanicolaou smear with manual screeningon 01-31-2022 Thin prep Papanicolaou smear with manual screening 20 U/L 15-37 [facility] Work Phone: Comment on above: Moderate Hemolysis, Result may be falsely increased. Thin prep Papanicolaou smear with manual screening 6 5-15 [facility] Work Phone: Urine blood detectionon -0 RBC Ql (U) Negative Negative [facility] Work Phone: RBC Ql (U) 0 SEEN /hpf [facility] Work Phone: Urine clarityon 01-31-2022 Clarity (U) Clear Clear [facility] Work Phone: Urine color determinationon 01-31-2022 Color (U) Straw Yellow [facility] Work Phone: Urine glucose detectionon Glucose Ql (U) 1000 mg/dl Normal [facility] Work Phone: Urine leukocyte esterase det ection by dipstickon 01-31-2022 Leukocyte esterase Test strip Ql (U) Negative Negative [facility] Work Phone: Urine pHon 01-31-2022 pH (U) 6.0 [pH] [facility] Work Phone: Urine sediment bacteria coun t by microscopy (number/high power field)on 01-31-2022 Bacteria LM.HPF (Urine sed) [#/Area] 0 /[HPF] None Seen [facility] Work Phone: Urine specific gravity measu rementon 01-31-2022 Specific gravity (U) [Rel density] 1.015 [facility] Work Phone: Urobilinogen Auto test strip Ql (U)on 01-31-2022 Urobilinogen Ql (U) Normal mg/dl Normal [facility] Work Phone: Vital signson 01-31-2022 Oxygen saturation in Blood 76 % 50-70 [facility] Work Phone: pH measurementon 01-31-2022 pH (Unsp spec) 7.36 [pH] 7.32-7.42 [facility] Work Phone: Absolute lymphocyte counton 01-25-2022 Lymphocytes Auto (Unsp spec) [#/Vol] 1.06 10*3/uL 0.83-4.51 [facility] Work Phone: [phone] Basophil percentageon 2021 Basophils/100 WBC (Bld) 0.7 % 0-1 [facility] Work Phone: [phone] Chloride [Moles/Vol] 104 mmol/L 98-107 [facility] Work Phone: [phone] Eosinophils/100 WBC (Bld) 2.9 % 0-5 [facility] Work Phone: Glucose [Mass/Vol] 166 mg/dL 74-106 [facility] Work Phone: Comment on above: Fasting Glucose resu lt greater than or equal to 126 mg/dL suggests DIABETES MELLITUS per A.D.A. criteria. Neutrophils (Bld) [#/Vol] 4.2 10*3/uL 2.0-7.7 [facility] Work Phone: [phone] Neutrophils/100 WBC (Bld) 68.9 % 47-70 [facility] Work Phone: [phone] Potassium [Moles/Vol] 4.1 mmol/L 3.5-5.1 [facility]: [phone] Sodium [Moles/Vol] 139 mmol/L 136-145 [facility] Work Phone: [phone] WBC (Bld) [#/Vol] 6.1 10*3/uL 4.4-11.0 [facility] Work Phone: [phone] Blood erythrocytes count (nu mber/volume)on 01-25-2022 RBC (Bld) [#/Vol] 4.60 10*6/uL 4.2-5.4 [facility]: Blood hemoglobin measurement (mass/volume)on 01-25-2022 Hemoglobin (Bld) [Mass/Vol] 12.3 g/dL 12.0-15.0 [facility] Work Phone: Blood lymphocytes/100 leukoc yteson 01-25-2022 Lymphocytes/100 WBC (Bld) 17.3 % 19-41 [facility] Work Phone: Blood monocytes/100 leukocyt eson 01-25-2022 Monocytes/100 WBC (Bld) 9.9 % 0-10 [facility] Work Phone: Blood platelet mean volumeon 01-25-2022 Platelet mean volume (Bld) [Entitic vol] 9.2 fL 6.2-12.0 [facility] Work Phone: Determination of erythrocyte mean corpuscular volume (MCV)on 01-25-2022 MCV (RBC) [Entitic vol] 87.8 fL 81-99 [facility] Work Phone: Hematocrit Auto (Bld) [Volum e fraction]on 01-25-2022 Hematocrit (Bld) [Volume fraction] 40.4 % 37-47 [facility] Work Phone: Laboratory - Chemistry and C hemistry - challengeon 01-25-2022 CO2 [Moles/Vol] 31.0 mmol/L 21.0-32.0 [facility] Work Phone: Urea nitrogen/Creatinine [Mass ratio] 11.1 mg/mg 10-20 [facility] Work Phone: Laboratory - Hematology and Cell countson 01-25-2022 Erythrocyte distribution width (RBC) [Entitic vol] 50.0 fL 35.1-43.9 [facility] Work Phone: Erythrocyte distribution width (RBC) [Ratio] 15.7 % 11.6-14.6 [facility] Work Phone: Immature granulocytes/100 WBC (Bld) 0.300 % 0.0-0.9 [facility] Work Phone: Comment on above: IG% - Immature Granu locytes (promyelocytes, myelocytes and metamyelocytes) > 1% indicates that a LEFT SHIFT is Present. MCH (RBC) [Entitic mass] 26.7 pg 27.0-32.0 [facility] Work Phone: Nucleated RBC/100 WBC (Bld) [Ratio] 0 % 0-5 [facility] Work Phone: MCHC Auto (RBC) [Mass/Vol]on 01-25-2022 MCHC (RBC) [Mass/Vol] 30.4 g/dL 32-36 [facility] Work Phone: No Panel Informationon 01-25 D-Dimer Quantitative (PE/DVT) 0.85 FEU/ug/m 0.27-0.49 [facility] Work Phone: Comment on above: RESULTS CALLED TO LAVINIA RODRÍGUEZ RN 01/25/22 Woody Chairez.REPORT READ BACK BY SAME.D-Dimer ELEVATED (>0.49): Additional studies and clinicalassessments are indicated to conclude diagnosis of:Deep Vein Thrombosis (DVT) or Pulmonary Embolism (PE) Estimated Creatinine Clearance Calc 61.39 ml/min [facility] Work Phone: Estimated GFR (MDRD) Amer 91 mL/min >60 [facility] Work Phone: Comment on above: GFR Calc Estimated GFR (MDRD) Non-Af Amer 75 mL/min >60 [facility] Work Phone: Comment on above: Non- GFR Calc Troponin I High Sensitivity < 3 pg/mL 3.0-54.0 [facility] Work Phone: Comment on above: Please Note: New Selene t Units and Gender Specific Reference Ranges. For more information see Policy Stat Procedure [place] High Sensitivity Troponin (TNIH) and attachments. SARS-CoV-2 & FLU Antigen (Rapid) SARS-CoV-2 (COVID 19) [facility] Work Phone: Platelets bldon 01-25-2022 Platelets (Bld) [#/Vol] 181 10*3/uL 150-450 [facility] Work Phone: Serum or plasma calcium dread urement (mass/volume)on 01-25-2022 Calcium [Mass/Vol] 8.5 mg/dL 8.5-10.1 [facility] Work Phone: Serum or plasma creatinine m easurement (mass/volume)on 01-25-2022 Creatinine [Mass/Vol] 0.81 mg/dL 0.55-1.02 [facility] Work Phone: Comment on above: The validity of the calculated GFR & GFRAA in patients over 70 years has not been determined. Clinical correlation is essential. Serum or plasma urea nitroge n measurement (mass/volume)on 01-25-2022 Urea nitrogen [Mass/Vol] 9 mg/dL 7-18 [facility] Work Phone: Thin prep Papanicolaou smear with manual screeningon 01-25-2022 Thin prep Papanicolaou smear with manual screening 4 5-15 [facility] Work Phone: Culture, urineon 11-12-2021 Bacteria identified Cx Nom (U) Presumptive Lactobacillus sp. [facility] Work Phone: Absolute lymphocyte counton 11-10-2021 Lymphocytes Auto (Unsp spec) [#/Vol] 1.61 10*3/uL 0.83-4.51 [facility] Work Phone: Basophil percentageon 2021 Basophils/100 WBC (Bld) 0.7 % 0-1 [facility] Work Phone: Chloride [Moles/Vol] 102 mmol/L 98-107 [facility] Work Phone: Eosinophils/100 WBC (Bld) 3.1 % 0-5 [facility] Work Phone: Glucose [Mass/Vol] 281 mg/dL 74-106 [facility] Work Phone: Comment on above: Glucose result great er than or equal to 200 mg/dLsuggests DIABETES MELLITUS per A.D.A. criteria. Neutrophils (Bld) [#/Vol] 3.7 10*3/uL 2.0-7.7 [facility] Work Phone: Neutrophils/100 WBC (Bld) 60.3 % 47-70 [facility] Work Phone: Potassium [Moles/Vol] 4.1 mmol/L 3.5-5.1 [facility] Work Phone: Sodium [Moles/Vol] 138 mmol/L 136-145 [facility] Work Phone: WBC (Bld) [#/Vol] 6.1 10*3/uL 4.4-11.0 [facility] Work Phone: Blood erythrocytes count (nu mber/volume)on 11-10-2021 RBC (Bld) [#/Vol] 4.46 10*6/uL 4.2-5.4 [facility] Work [facility]: Blood hemoglobin measurement (mass/volume)on 11-10-2021 Hemoglobin (Bld) [Mass/Vol] 11.8 g/dL 12.0-15.0 [facility] Work Phone: Blood lymphocytes/100 leukoc yteson 11-10-2021 Lymphocytes/100 WBC (Bld) 26.3 % 19-41 [facility] Work Phone: Blood monocytes/100 leukocyt eson 11-10-2021 Monocytes/100 WBC (Bld) 9.1 % 0-10 [facility] Work Phone: Blood platelet mean volumeon 11-10-2021 Platelet mean volume (Bld) [Entitic vol] 9.2 fL 6.2-12.0 [facility] Work Phone: Determination of erythrocyte mean corpuscular volume (MCV)on 11-10-2021 MCV (RBC) [Entitic vol] 83.9 fL 81-99 [facility] Work Phone: Hematocrit Auto (Bld) [Volum e fraction]on 11-10-2021 Hematocrit (Bld) [Volume fraction] 37.4 % 37-47 [facility] Work Phone: Laboratory - Chemistry and C hemistry - challengeon 11-10-2021 Magnesium [Mass/Vol] 1.7 mg/dL 1.6-2.6 [facility] Work Phone: CO2 [Moles/Vol] 30.0 mmol/L 21.0-32.0 [facility] Work Phone: Urea nitrogen/Creatinine [Mass ratio] 14.9 mg/mg 10-20 [facility] Work Phone: Laboratory - Hematology and Cell countson 11-10-2021 Erythrocyte distribution width (RBC) [Entitic vol] 50.7 fL 35.1-43.9 [facility] Work Phone: Erythrocyte distribution width (RBC) [Ratio] 16.8 % 11.6-14.6 [facility] Work Phone: Immature granulocytes/100 WBC (Bld) 0.500 % 0.0-0.9 [facility] Work Phone: Comment on above: IG% - Immature Granu locytes (promyelocytes, myelocytes and metamyelocytes) > 1% indicates that a LEFT SHIFT is Present. MCH (RBC) [Entitic mass] 26.5 pg 27.0-32.0 [facility] Work Phone: Nucleated RBC/100 WBC (Bld) [Ratio] 0 % 0-5 [facility] Work Phone: MCHC Auto (RBC) [Mass/Vol]on 11-10-2021 MCHC (RBC) [Mass/Vol] 31.6 g/dL 32-36 [facility] Work Phone: No Panel Informationon 11-10 Thyroid Stimulating Hormone (TSH) 3.14 uIU/mL 0.358-3.74 [facility] Work Phone: Estimated GFR (MDRD) Amer 71 mL/min >60 [facility] Work Phone: Comment on above: GFR Calc Estimated GFR (MDRD) Non-Af Amer 59 mL/min >60 [facility] Work Phone: Comment on above: Non- GFR Calc Nasal Screen MRSA/MSSA [facility] Work Phone: Platelets bldon 11-10-2021 Platelets (Bld) [#/Vol] 261 10*3/uL 150-450 [facility] Work Phone: Serum or plasma albumin dread urement (mass/volume)on 11-10-2021 Albumin [Mass/Vol] 3.4 g/dL 3.2-5.0 [facility] Work Phone: Serum or plasma calcium dread urement (mass/volume)on 11-10-2021 Calcium [Mass/Vol] 9.1 mg/dL 8.5-10.1 [facility] Work Phone: Serum or plasma creatinine m easurement (mass/volume)on 11-10-2021 Creatinine [Mass/Vol] 1.01 mg/dL 0.55-1.02 [facility] Work Phone: Comment on above: The validity of the calculated GFR & GFRAA in patients over 70 years has not been determined. Clinical correlation is essential. Serum or plasma urea nitroge n measurement (mass/volume)on 11-10-2021 Urea nitrogen [Mass/Vol] 15 mg/dL 7-18 [facility] Work Phone: Thin prep Papanicolaou smear with manual screeningon 11-10-2021 Thin prep Papanicolaou smear with manual screening 6 -15 [facility] Work Phone: Whole blood hemoglobin A1c/t otal hemoglobin ratio (mass fraction)on 11-10-2021 HbA1c (Bld) [Mass fraction] 8.0 % 3.8-5.6 [facility] Work Phone: Comment on above: Normal < 5.7 % Predi abetic 5.7 - 6.4 % Diabetic >or= 6.5 % Please note range changes. Glucose Glucometer (BldC) [M ass/Vol]on 09-25-2021 Glucose [Mass/Vol] 136 mg/dL 70-110 [facility] Work Phone: Comment on above: MANAGEMENT OF PATIEN T CARE PER NURSING PROTOCOL Basophil percentageon 2020 WBC (Bld) [#/Vol] 7.1 10*3/uL 4.4-11.0 [facility] Work Phone: Blood erythrocytes count (nu mber/volume)on 08-07-2021 RBC (Bld) [#/Vol] 4.56 10*6/uL 4.2-5.4 [facility] Work Phone: Blood hemoglobin measurement (mass/volume)on 08-07-2021 Hemoglobin (Bld) [Mass/Vol] 12.0 g/dL 12.0-15.0 [facility] Work Phone: Blood platelet mean volumeon 08-07-2021 Platelet mean volume (Bld) [Entitic vol] 9.9 fL 6.2-12.0 [facility] Work Phone: Determination of erythrocyte mean corpuscular volume (MCV)on 08-07-2021 MCV (RBC) [Entitic vol] 86.8 fL 81-99 [facility] Work Phone: Hematocrit Auto (Bld) [Volum e fraction]on 08-07-2021 Hematocrit (Bld) [Volume fraction] 39.6 % 37-47 [facility] Work Phone: Laboratory - Hematology and Cell countson 08-07-2021 Erythrocyte distribution width (RBC) [Entitic vol] 47.4 fL 35.1-43.9 [facility] Work Phone: Erythrocyte distribution width (RBC) [Ratio] 15.2 % 11.6-14.6 [facility] Work Phone: MCH (RBC) [Entitic mass] 26.3 pg 27.0-32.0 [facility] Work Phone: MCHC Auto (RBC) [Mass/Vol]on 08-07-2021 MCHC (RBC) [Mass/Vol] 30.3 g/dL 32-36 [facility] Work Phone: Platelets bldon 08-07-2021 Platelets (Bld) [#/Vol] 291 10*3/uL 150-450 [facility] Work Phone: Provider Note - ED [...] made to minimize errors. Minor errors in electronic health records specialist may be present. Please call if questions.. [...] From Triage - ED 21-May-2021 20:35 Normal [facility] VAS LAB Venous Duplex Ultra sound DVTon 05-22-2021 [facility] Venous [place] [address] [phone], Vascular Lab Report Lower Venous Duplex Ultrasound Patient Name: FLEX WOOTEN Reading Physician: [id number] Hector Vegas MD Study Date: 05/22/2021 Referring Physician: [id number] SILVANA HENDERSON MRN/PID: [id number] PCP: Accession/Order#: [id number] CC Report to: Date of : 1960 Technologist: Gladis Campbell RVT Gender: F Technologist 2: Admission Status: Outpatient Location Performed: [facility] Diagnosis/ICD: M79.605-Pain in left leg; M79.89-Left leg swelling Procedure/CPT: 46498 Peripheral venous duplex scan for DVT Limited-83071 Pertinent History: Leg pain and LE Edema. [...] Spontaneous/Phasic Peroneal Yes None PTV Yes None 82030 Hector Vegas MD Final Normal [facility] Triage - EDon 05-21-2021 Triage - [...] obeys commands Best Verbal Response: (V5) oriented Elmo Score: 15 Allergies: yes Patient has homicidal [...] 21-May-2021 20:40 by Demetrio Cerda (SAM) Normal [facility] BASIC METABOLIC PANELon 06- Anion gap [Moles/Vol] 13 mmol/L Normal 10 - 20 [facility] Comment on above: Performed By: #### B MP #### [address] [address] Calcium [Mass/Vol] 9.4 mg/dL Normal 8.6 - 10.3 [facility] Comment on above: Performed By: #### B MP #### [address] [address] Chloride [Moles/Vol] 96 mmol/L Low 98 - 107 [facility] Comment on above: Performed By: #### B MP #### [address] [address] Creatinine [Mass/Vol] 0.92 mg/dL Normal 0.50 - 1.05 [facility] Comment on above: Performed By: #### B MP #### [address] [address] GFR- AM. >60 Normal >60 [facility] Comment on above: Result Comment: CALC ULATIONS OF ESTIMATED GFR ARE PERFORMED USING THE MDRD STUDY EQUATION FOR THE IDMS-TRACEABLE CREATININE METHODS. CLIN CHEM 2007;53:766-72 Performed By: #### B MP #### [address] [address] GFR-NON AM. >60 Normal >60 [facility] Comment on above: Performed By: #### B MP #### [address] [address] Glucose [Mass/Vol] 342 mg/dL High 74 - 99 [facility] Comment on above: Performed By: #### B MP #### [address] [address] HCO3 (Bld) [Moles/Vol] 28 mmol/L Normal 21 - 32 [facility] Comment on above: Performed By: #### B MP #### [address] [address] Potassium [Moles/Vol] 4.8 mmol/L Normal 3.5 - 5.3 [facility] Comment on above: Performed By: #### B MP #### [address] [address] Sodium [Moles/Vol] 132 mmol/L Low 136 - 145 [facility] Comment on above: Performed By: #### B MP #### [address] [address] Urea nitrogen [Mass/Vol] 18 mg/dL Normal 6 - 23 [facility] Comment on above: Performed By: #### B MP #### [place] [id number] GLUCOSE-[facility] 02-13-2021 Glucose [Mass/Vol] 332 mg/dL High 74 - 99 [facility] Comment on above: Performed By: #### G TAYE #### [facility] [address] [place] [address] Provider Note - ED v2on 01-27 Provider [...] Alert and oriented x4, GCS 15 , psychiatric nursing assistant II-XII grossly intact. 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 [...] SIGNS: T PRBP SpO2O2(LPM) %FiO2 Method 13-Feb-2021 03:12:[id number] 92 room air, no respiratory support 13-Feb-2021 01:16:00-5883614/59 92 room air, no respiratory support 13-Feb-2021 00:01:[id number]/76 95 room air, no respiratory support MEDICAL [...] Referenced From Triage - ED 13-Feb-2021 00:01 [facility] Risk Screen - Adult Emergenc yon [...] instruction; written material Cultural Considerationsnone Developmental Considerationsnone Gnosticism Considerationsnone Learning Assessment (Other Learner): Learning Assessment (Other Learner): Other learner availableno Pressure Injury/TB/Substance: Pressure Injury: Do you have a coughno Substance Use Current or Former Historynever: Cigarette/Tobacco, e-Cigarette/Vaping, Alcohol, Street Drugs Admission Risk Screen: Significant IndicatorsComplete CAGE: CAGE: Is this an injured patient at a Trauma Center ([facility]/[place]): no Electronic Signatures: Tigist Yoder (SAM) (Signed 13-Feb-2021 00:07) Authored: Preferred Language, Advanced Directives, Family Violence Adult, Learning Assessment (Patient), Learning Assessment (Other Learner), Pressure Injury/TB/Substance, Pressure Injury, CAGE Last Updated: 13-Feb-2021 00:07 by Tigist Yoder (SAM) [facility] Triage - EDon 02-13-2021 Triage - ED Chart Review: ARRIVAL INFORMATION Mode of Arrival: private vehicle CHIEF COMPLAINT FLEX TABARES is a Female patient with a chief complaint of hyperglycemia (Patient states, My sugar has been up the past 4-5 days. It's so high my meter wont register. I had a steroid shot today around 2pm. 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 RECORD# NUMBER DATE DATE TYPE EJFLEX [id number] F 59 02/08/20 02/08/20 2 Daphney [id number] ROOM: [facility] DATE OF : 1960 DICTATING PHYSICIAN: Pb Drummond DATE OF SURGERY: February 08, 2020 SURGEON: Pb Drummond MD FISH FRYER: None. ANESTHESIOLOGIST: Daphney Velasquez MD ANESTHETIC: Local [...] Pb Drummond MD 02/08/20 13:43 JOB #: [id number] Transcribed By: yogesh 02/09/20 07:13 Electronically signed by: E-SIGN DR. PB DRUMMOND M.D. 02/11/20 09:08 Page 2 of 2 JE, FLEX E. Operative Report Normal [facility] CNOVon 05-09-2019 CNOV Office Visit (RHBATH ) FLEX WOOTEN ([id number]) 1960 F Date Time Provider Department 05/09/19 10:00 AM JACKIE ROJAS RHBATH During your visit today, we recorded the [...] for [address] Musa at [facility]. Takes oxycodone 2 times daily. Left [...] Diagnosis Date - DVT (deep venous thrombosis) ([facility]) 2013 post knee replacement - Fibromyalgia - Hemorrhage of gastrointestinal tract, unspecified - Hemorrhage of rectum and anus - Internal hemorrhoids without mention of complication - Other forms of migraine - Other unspecified back disorder - Pulmonary embolism ([facility]) 2013 PAST SURGICAL HISTORY Procedure Laterality Date - COLONOSCOP W/ OR W/O [facility] SPEC 2002 Colonoscopy - INTRATHECAL BLOCK [...] AJ 1:160, CK 272 Negative aside DNA, ANALYTICAL ENGINEER, SSA, SSB, rheumatoid factor, CCP, Acevedo Low [...] Jackie Rojas MD Referring Provider: JACKIE ROJAS [[id number]] Allergies As of Date: 05/09/2019 Noted Allergy [...] Status:Closed by JACKIE ROJAS MD on 05/09/19 [facility] PROGRESSon 05-09-2019 PROGRESS HNO ID: [id number] Author: Jackie Rojas Service: ? Author Type: [...] for [address] Musa at [facility]. Takes oxycodone 2 times daily. Left [...] Diagnosis Date - DVT (deep venous thrombosis) ([facility]) 2013 post knee replacement - Fibromyalgia - Hemorrhage of gastrointestinal tract, unspecified - Hemorrhage of rectum and anus - Internal hemorrhoids without mention of complication - Other forms of migraine - Other unspecified back disorder - Pulmonary embolism ([facility]) 2013 PAST SURGICAL HISTORY Procedure Laterality Date - COLONOSCOP W/ OR W/O [facility] SPEC 2002 Colonoscopy - INTRATHECAL BLOCK [...] left knee -- meniscus repair; Dr. Weller, [facility] - REMOVAL OF OVARY(S) - REMOVE [...] AJ 1:160, CK 272 Negative aside DNA, ANALYTICAL ENGINEER, SSA, SSB, rheumatoid factor, CCP, Acevedo Low [...] fail to improve. Jackie Rojas MD Normal [facility] AJ by IFA Screenon 04-12-20 19 AJ by IFA Screen SEE BELOW Normal [facility] Comment on above: Result Comment: AJ Positive AB NEGAT Normal range : negative at <1:80 serum dilution. AJ Titer 1:160 AB NEGAT AJ Pattern Homogeneous Performing Laboratory: [facility] [address] [place] [id number] Performed By: #### R F1 #### [facility] [address] [place], [place] [address] CCP Antibody, IgGon 04-12-20 19 CCP Antibody, IgG <15 Normal <20 [facility] Comment on above: Result Comment: < 20 units: Negative 20-39 units: Weak Positive 40-59 units: Moderate Positive > 60 units: Strong Positive The following results were obtained with the [employer] QUANTA Lite CCP3 IgG VENESSA. Anti-CCP values obtained with different manufacturers' assay methods may not be used interchangeably. The magnitude of the reported IgG levels cannot be correlated to an endpoint titer. Performing Laboratory: [facility] [address] [place] [address] Performed By: #### R F1 #### [place] [address] DS-DNA Abon 04-12-2019 DS-DNA Ab SEE BELOW Normal [facility] Comment on above: Result Comment: DNA Antibody w/ Conf. <12 <30 IU/mL Negative for ds DNA Antibodies Negative: <30 IU/mL Equivocal: 30-74 IU/mL Positive: >74 IU/mL Performing Laboratory: [place] [address] Performed By: #### R F1 #### [place] [address] ANALYTICAL ENGINEER Antibodyon 04-12-2019 ANALYTICAL ENGINEER Antibody <0.2 Normal <1.0 [facility] Comment on above: Result Comment: Nega tive Negative: <1.0 AI Positive: >0.9 AI Performing Laboratory: [place] [address] Performed By: #### R F1 #### [place] [address] Sjogren Antibodieson 019 Sjogren Antibodies SEE BELOW Normal [facility] Comment on above: Result Comment: SSA Antibody <0.2 <1.0 AI Negative Negative: <1.0 AI Positive: >0.9 AI SSB Antibody <0.2 <1.0 AI Negative Negative: <1.0 AI Positive: >0.9 AI Performing Laboratory: [place] [address] Performed By: #### R F1 #### [place] [address] Acevedo Abs IgGon 04-12-2019 Acevedo Abs IgG SEE BELOW Normal [facility] Comment on above: Result Comment: Sm A ntibody <0.2 <1.0 AI Negative Negative: <1.0 AI Positive: >0.9 AI Performing Laboratory: [facility] [address] [place] [address] Performed By: #### R F1 #### [place] [address] Total 25-OH Vitamin Don 03-29 Total 25-OH Vitamin D 31.3 ng/mL Normal 30.0-100.0 [facility] Comment on above: Performed By: #### R F1 #### [facility] [address] [place] [id number] Kelsi 04-09-2019 CNOV Office Visit (RHBATH ) FLEX WOOTEN ([id number]) 1960 F Date Time Provider Department 04/09/19 10:30 AM JACKIE ROJAS During your visit today, we recorded the following information about you: Temperature Pulse Blood pressure Weight 98.4 degrees 68/minute 126/80 107 kg Height 1.626 m Jackie Rojas MD 04/09/2019 2:27 PM Signed RHEUMATOLOGY NEW PATIENT NOTE REFERRING PHYSICIAN: Rica Padgett CHIEF COMPLAINT: Patient presents with: New Patient HPI: Flex Hylton Je is a 58 year old female who [...] for [address] Musa at [facility]. Takes oxycodone 2 times daily. Left [...] Diagnosis Date - DVT (deep venous thrombosis) ([facility]) 2013 post knee replacement - Fibromyalgia - Hemorrhage of gastrointestinal tract, unspecified - Hemorrhage of rectum and anus - Internal hemorrhoids without mention of complication - Other forms of migraine - Other unspecified back disorder - Pulmonary embolism ([facility]) 2013 PAST SURGICAL HISTORY Procedure Laterality [...] History Socioeconomic History Marital status: Spouse name: [facility] Number of children: 2 Years of education: [...] file Gets together: Not on file Attends spiritism service: Not on file Active member of [...] Education Completed: 13 years Marital Status: to [facility] with 2 children History Review: I have [...] SCREEN - DNA ANTIBODY DS BLD - ANALYTICAL ENGINEER ANTIBODY BLOOD - ACEVEDO IGG AB - [...] Jackie Rojas MD Referring Provider: RICA PADGETT [[id number]] Allergies As of Date: 04/09/2019 Noted Allergy [...] Order(s):AJ BY IFA SCREEN [SQANAIFS] Order #: [id number] FUTURE DNA ANTIBODY DS BLD [SQDNAAB] Order #: [id number] FUTURE ANALYTICAL ENGINEER ANTIBODY BLOOD [SQARNP] Order #: [id number] FUTURE ACEVEDO IGG AB [SQSMAB] Order #: [id number] FUTURE SJOGREN ABS SSA/SSB [SQXSSAB] Order #: [id number] FUTURE RHEUMATOID FACTOR BL [SQRF] Order #: [id number] FUTURE CCP ANTIBODY IGG [SQCCP] Order #: [id number] FUTURE CK CREATINE KINASE [SQCK] Order #: [id number] FUTURE VITAMIN D 25 HYDROXY [SQVITD] Order #: [id number] FUTURE FERRITIN BLD [SQFERR] Order #: [id number] FUTURE IRON + TIBC [SQIRON] Order #: [id number] FUTURE UA WITH CULTURE IF INDICATED [SQUACII] Order #: [id number] FUTURE CREATININE RANDOM UR [SQUCRR] Order #: [id number] FUTURE PROTEIN RANDOM UR [SQUTPR] Order #: [id number] FUTURE CBC + DIFF [SQCBCDIF] Order #: [id number] FUTURE COMP METABOLIC PANEL [SQCMP] Order #: [id number] FUTURE XR HAND GENERAL 3V PA/LAT/OBL LT [3628608] Order #: [id number] FUTURE XR HAND GENERAL 3V PA/LAT/OBL RT [3676782] Order #: [id number] FUTURE XR FOOT GENERAL 3V AP/LAT/OBL LT [1780663] Order #: [id number] FUTURE XR FOOT GENERAL 3V AP/LAT/OBL RT [0858190] Order #: [id number] FUTURE XR SACROILIAC JOINTS 2V AP PELVIS/FERGUESON [9725032] Order #: [id number] FUTURE XR LUMBAR LIMITED 2V AP/LAT [8728438] Order #: [id number] FUTURE Prescriptions as of 04/09/2019 Sig: ATENOLOL [...] by JACKIE ROJAS MD on 04/09/19 Normal [facility] CPKon 04-09-2019 CK [Catalytic activity/Vol] 272 U/L High 26-192 [facility] Comment on above: Performed By: #### C K #### [place] [address] Comprehensive Panelon 2018 ALP [Catalytic activity/Vol] 87 U/L Normal 45-117 [facility] Comment on above: Performed By: #### P 14 #### [facility] [address] [place], [place] [address] Bilirubin [Mass/Vol] 0.2 mg/dL Normal 0.2-1.0 [facility] Comment on above: Performed By: #### P 14 #### [facility] [address] [place], [place] [address] Protein [Mass/Vol] 7.0 g/dL Normal 6.4-8.2 [facility] Comment on above: Performed By: #### P 14 #### [facility] [address] [place], [place] [address] ALT [Catalytic activity/Vol] 43 U/L Normal 12-78 [facility] Comment on above: Performed By: #### P 14 #### [facility] [address] [place], [place] [address] Creatinine [Mass/Vol] 0.74 mg/dL Normal 0.51-0.95 [facility] Comment on above: Performed By: #### P 14 #### [facility] [address] [place], [place] [address] AST [Catalytic activity/Vol] 22 U/L Normal 15-37 [facility] Comment on above: Performed By: #### P 14 #### [facility] [address] [place], [place] [address] Albumin [Mass/Vol] 3.6 g/dL Normal 3.4-5.0 [facility] Comment on above: Performed By: #### P 14 #### [facility] [address] [place], [place] [address] Anion gap [Moles/Vol] 9 mmol/L Normal 8-16 [facility] Comment on above: Performed By: #### P 14 #### [facility] [address] [place], [place] [address] CO2 [Moles/Vol] 31 mmol/L Normal 21-32 [facility] Comment on above: Performed By: #### P 14 #### [facility] [address] [place], [place] [address] Urea nitrogen [Mass/Vol] 16 mg/dL Normal 7-18 [facility] Comment on above: Performed By: #### P 14 #### [facility] [address] [place], [place] [address] Calcium [Mass/Vol] 8.9 mg/dL Normal 8.5-10.1 [facility] Comment on above: Performed By: #### P 14 #### [facility] [address] [place], [place] [address] Glucose [Mass/Vol] 124 mg/dL High 70-99 [facility] Comment on above: Performed By: #### P 14 #### [facility] [address] [place], [place] [address] Chloride [Moles/Vol] 100 mmol/L Normal 98-107 [facility] Comment on above: Performed By: #### P 14 #### [facility] [address] [place], [place] [address] Potassium [Moles/Vol] 4.4 mmol/L Normal 3.5-5.1 [facility] Comment on above: Performed By: #### P 14 #### [facility] [address] [place] [address] Sodium [Moles/Vol] 136 mmol/L Normal 136-145 [facility] Comment on above: Performed By: #### P 14 #### [facility] [address] [place] [address] Creatinine,Urineon 9 Creatinine,Urine 71.9 mg/dL Normal [facility] Comment on above: Performed By: #### C REAU #### [facility] [address] [place] [address] Ferritinon 04-09-2019 Ferritin [Mass/Vol] 11.80 ng/mL Normal 8.00-252.00 [facility] Comment on above: Performed By: #### F ERR #### [facility] [address] [place] [address] Hemogram/Diffon 04-09-2019 Abs Immature Grans 0.03 thou/cmm Normal 0.00-0.05 [facility] Comment on above: Performed By: #### C BCD1 #### [facility] [address] [place] [address] Abs Neut (ANC) 4.15 thou/cmm Normal 1.56-6.13 [facility] Comment on above: Performed By: #### C BCD1 #### [facility] [address] [place] [address] Abs. Baso 0.06 thou/cmm Normal 0.01-0.08 [facility] Comment on above: Performed By: #### C BCD1 #### [facility] [address] [place] [address] Abs. [place] 0.43 thou/cmm Normal 0.27-0.70 [facility] Comment on above: Performed By: #### C BCD1 #### [facility] [address] [place] [address] Basophils/100 WBC (Bld) 0.9 % Normal [facility] Comment on above: Performed By: #### C BCD1 #### [facility] [address] [place] [address] Eosinophils (Bld) [#/Vol] 0.18 thou/cmm Normal 0.00-0.31 [facility] Comment on above: Performed By: #### C BCD1 #### [facility] [address] [place], [place] [address] Eosinophils/100 WBC (Bld) 2.6 % Normal [facility] Comment on above: Performed By: #### C BCD1 #### [facility] [address] [place] [address] Erythrocyte distribution width (RBC) [Ratio] 13.4 % Normal 11.7-14.4 [facility] Comment on above: Performed By: #### C BCD1 #### [facility] [address] [place] [address] Hematocrit (Bld) [Volume fraction] 39.8 % Normal 34.1-44.9 [facility] Comment on above: Performed By: #### C BCD1 #### [facility] [address] [place] [address] Hemoglobin (Bld) [Mass/Vol] 12.5 g/dL Normal 11.2-15.7 [facility] Comment on above: Performed By: #### C BCD1 #### [place] [address] Immature Grans 0.40 % Normal [facility] Comment on above: Performed By: #### C BCD1 #### [place] [address] Lymphocytes (Bld) [#/Vol] 2.09 thou/cmm Normal 1.18-3.74 [facility] Comment on above: Performed By: #### C BCD1 #### [facility] [address] [place] [address] Lymphocytes/100 WBC (Bld) 30.1 % Normal [facility] Comment on above: Performed By: #### C BCD1 #### [facility] [address] [place] [address] MCH (RBC) [Entitic mass] 26.7 pg Normal 25.6-32.2 [facility] Comment on above: Performed By: #### C BCD1 #### [facility] [address] [place], [place] [address] MCHC (RBC) [Mass/Vol] 31.4 % Low 31.6-34.8 [facility] Comment on above: Performed By: #### C BCD1 #### [facility] [address] [place], [place] [address] MCV (RBC) [Entitic vol] 85.0 fL Normal 79.4-94.8 [facility] Comment on above: Performed By: #### C BCD1 #### [facility] [address] [place] [address] Monocytes/100 WBC (Bld) 6.2 % Normal [facility] Comment on above: Performed By: #### C BCD1 #### [facility] [address] [place] [address] Platelet mean volume (Bld) [Entitic vol] 9.8 fL Normal 9.4-12.3 [facility] Comment on above: Performed By: #### C BCD1 #### [facility] [address] [place] [address] Platelets (Bld) [#/Vol] 204 thou/cmm Normal 182-369 [facility] Comment on above: Performed By: #### C BCD1 #### [facility] [address] [place] [address] RBC (Bld) [#/Vol] 4.68 mil/cmm Normal 3.93-5.22 [facility] Comment on above: Performed By: #### C BCD1 #### [facility] [address] [place] [address] RDW SD 41.3 fl Normal 36.4-46.3 [facility] Comment on above: Performed By: #### C BCD1 #### [facility] [address] [place] [address] Seg Neutrophil 59.8 % Normal [facility] Comment on above: Performed By: #### C BCD1 #### [facility] [address] [place] [address] WBC (Bld) [#/Vol] 6.94 thou/cmm Normal 3.98-10.04 [facility] Comment on above: Performed By: #### C BCD1 #### [facility] [address] [place], [place] [address] Iron % Saturationon 04-09-20 19 Iron % Saturation 17 % Low 20-55 [facility] Comment on above: Performed By: #### I RONS #### [facility] [address] [place], [place] [address] Iron Binding Cap. 369 ug/dL Normal 250-450 [facility] Comment on above: Performed By: #### I RONS #### [facility] [address] [place], [place] [address] Iron Serum 61 ug/dL Normal 50-170 [facility] Comment on above: Performed By: #### I RONS #### [facility] [address] [place], [place] [address] MDRD GFRon 04-09-2019 GFR/1.73 sq M predicted among non-blacks MDRD (S/P/Bld) [Vol rate/Area] mL/min/{1.73_m2} Normal >60mL/min/1 .73m2 [facility] Comment on above: Result Comment: If t he patient is , multiply the result by 1.210. Performed By: #### G FR #### [facility] [address] [place], [place] [address] PROGRESSon 04-09-2019 PROGRESS HNO ID: [id number] Author: Jackie Rojas Service: ? Author Type: [...] for [address] Musa at [facility]. Takes oxycodone 2 times daily. Left [...] Diagnosis Date - DVT (deep venous thrombosis) ([facility]) 2013 post knee replacement - Fibromyalgia - Hemorrhage of gastrointestinal tract, unspecified - Hemorrhage of rectum and anus - Internal hemorrhoids without mention of complication - Other forms of migraine - Other unspecified back disorder - Pulmonary embolism ([facility]) 2013 PAST SURGICAL HISTORY Procedure Laterality Date - COLONOSCOP W/ OR W/O [facility] 2002 Colonoscopy - INTRATHECAL BLOCK [...] file Gets together: Not on file Attends spiritism service: Not on file Active member of [...] SCREEN - DNA ANTIBODY DS BLD - ANALYTICAL ENGINEER ANTIBODY BLOOD - ACEVEDO IGG AB - [...] discuss lab results. Jackie Rojas MD Normal [facility] Rheumatoid Factoron 04-09-20 19 Rheumatoid Factor < 10.0 Normal 0.0-15.0 [facility] Comment on above: Performed By: #### R F1 #### [place] [address] Urinalysis, reflexon 019 Reflex Comment see below Normal [facility] Comment on above: Result Comment: Refl ex to culture is not indicated based on established laboratory criteria. Performed By: #### U RIN #### [place] [address] Bacteria LM.HPF (Urine sed) [#/Area] NONE Normal None [facility] Comment on above: Performed By: #### U RIN #### [place] [address] Ep Cells Urine 0.8 /hpf Normal 0.0-5.0 [facility] Comment on above: Performed By: #### U RIN #### [place] [address] Hyaline Cast 0.7 /lpf Normal 0.0-1.0 [facility] Comment on above: Performed By: #### U RIN #### [place] [address] RBC LM.HPF (Urine sed) [#/Area] 0.6 /[HPF] Normal 0.0-5.0 [facility] Comment on above: Performed By: #### U RIN #### [facility] [address] [place] [address] WBC, reflex 0.90 /hpf Normal 0.00-5.00 [facility] Comment on above: Performed By: #### U RIN #### [facility] [address] [place] [address] Appearance (U) CLEAR Normal [facility] Comment on above: Performed By: #### U RIN #### [facility] [address] [place] [address] Bilirubin (U) [Mass/Vol] Negative Normal Negative [facility] Comment on above: Performed By: #### U RIN #### [facility] [address] [place] [address] Color (U) YELLOW Normal [facility] Comment on above: Performed By: #### U RIN #### [facility] [address] [place] [address] Glucose Ql (U) Negative Normal Negative [facility] Comment on above: Performed By: #### U RIN #### [facility] [address] [place] [address] Hemoglobin,Urine Negative Normal Negative [facility] Comment on above: Performed By: #### U RIN #### [place] [address] Ketone Urine Negative Normal Negative [facility] Comment on above: Performed By: #### U RIN #### [facility] [address] [place] [address] Leukocyte esterase Test strip Ql (U) TRACE Abnormal Negative [facility] Comment on above: Performed By: #### U RIN #### [facility] [address] [place] [address] Nitrite reflex Negative Normal Negative [facility] Comment on above: Performed By: #### U RIN #### [facility] [address] [place] [address] pH (U) 5.0 [pH] Normal 5.0-8.0 [facility] Comment on above: Performed By: #### U RIN #### [facility] [address] [place], [place] [address] Protein (U) [Mass/Vol] Negative Normal Negative [facility] Comment on above: Performed By: #### U RIN #### [facility] [address] [place], [place] [address] Specific [place], Ur 1.017 Normal 1.005-1.030 [facility] Comment on above: Performed By: #### U RIN #### [facility] [address] [place], [place] [address] Urobilinogen,Ur 0.2 EU/dL Normal 0.2-1.0 [facility] Comment on above: Performed By: #### U RIN #### [facility] [address] [place], [place] [address] Urine Proteinon 04-09-2019 Protein Ql (U) < 5.0 Normal 0.0-11.9 [facility] Comment on above: Performed By: #### U P #### [facility] [address] [place] [address] XR FOOT 3V AP/LAT/OBL LTon 0 04-09-2019 [...] degenerative arthritis at the first MTP joints. 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: JUANITA Transcribe Date/Time: Apr 12 2019 2:06P Dictated by : YANETH PATEL MD This examination was interpreted and the report reviewed and electronically signed by: YANETH PATEL MD on Apr 12 2019 2:08PM EST Normal [facility] XR FOOT 3V AP/LAT/OBL RTon 0 [...] degenerative arthritis at the first MTP joints. 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: JUANITA Transcribe Date/Time: Apr 12 2019 2:06P Dictated by : YANETH PATEL MD This examination was interpreted and the report reviewed and electronically signed by: YANETH PATEL MD on Apr 12 2019 2:08PM EST Normal [facility] XR HAND 3V PA/LAT/OBL LTon 0 [...] no abnormal calcifications. IMPRESSION: Within normal limits. 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: JUANITA Transcribe Date/Time: Apr 12 2019 2:04P Dictated by : YANETH PATEL MD This examination was interpreted and the report reviewed and electronically signed by: YANETH PATEL MD on Apr 12 2019 2:06PM EST Normal [facility] XR HAND 3V PA/LAT/OBL RTon 0 04-09-2019 [...] no abnormal calcifications. IMPRESSION: Within normal limits. 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: JUANITA Transcribe Date/Time: Apr 12 2019 2:04P Dictated by : YANETH PATEL MD This examination was interpreted and the report reviewed and electronically signed by: YANETH PATEL MD on Apr 12 2019 2:06PM EST Normal [facility] XR LUMBAR 2V AP/LATon 2018 XR [...] IMPRESSION: Scoliosis, degenerative spondylosis, and postoperative changes. 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: JUANITA Transcribe Date/Time: Apr 12 2019 2:09P Dictated by : YANETH PATEL MD This examination was interpreted and the report reviewed and electronically signed by: YANETH PATEL MD on Apr 12 2019 2:11PM EST Normal [facility] XR SI JTS 2V AP PELV/FERGUSO Non [...] degenerative changes at the right sacroiliac joint. 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: PSCB Transcribe Date/Time: Apr 12 2019 2:08P Dictated by : YANETH PATEL MD This examination was interpreted and the report reviewed and electronically signed by: YANETH PATEL MD on Apr 12 2019 2:09PM EST Normal [facility] Office Visit: Annualon 07-25 Dietary management education, guidance, and counseling (procedure) yes Invalid Interpretation Code [facility] Documentation of current medications (procedure) Done Invalid Interpretation Code [facility] Tobacco smoking status NHIS Never Invalid Interpretation Code [facility] Tobacco use CPHS Never smoker Invalid Interpretation Code [facility] Lab Report: Basic Metabolic Profile (BMP)on 12-09-2016 Anion gap 10 mmol/L Invalid Interpretation Code 5-15 [facility] BUN/Creatinine Ratio 18.5 RATIO Invalid Interpretation Code 10-20 [facility] Calcium 8.9 mg/dL Invalid Interpretation Code 8.5-10.1 [facility] Chloride 98 mmol/L Invalid Interpretation Code 98-107 [facility] CO2 32.0 mmol/L Invalid Interpretation Code 21.0-32.0 [facility] Creatinine 0.81 mg/dL Invalid Interpretation Code 0.55-1.02 [facility] eGFR (non-black) 77 mL/min/{1.73_m2} Invalid Interpretation Code >60 [facility] eGFR (non-black) 93 mL/min/{1.73_m2} Invalid Interpretation Code >60 [facility] Glucose mass conc 121 mg/dL High 70-110 [facility] Potassium molar conc 4.3 mmol/L Invalid Interpretation Code 3.5-5.1 [facility] Sodium 140 mmol/L Invalid Interpretation Code 136-145 [facility] Urea nitrogen 15 mg/dL Invalid Interpretation Code 7-18 [facility] Lab Report: Lipaseon 017 LIPASE 157 U/L Invalid Interpretation Code 73-393 [facility] Lab Report: Liver Profileon 12-09-2016 Alanine aminotransferase (ALT) 58 U/L Invalid Interpretation Code 12-78 [facility] Albumin 3.7 g/dL Invalid Interpretation Code 3.4-5.0 [facility] Alkaline phosphatase (ALP) 87 U/L Invalid Interpretation Code 45-117 [facility] Aspartate aminotransferase (AST) 37 U/L Invalid Interpretation Code 15-37 [facility] Bilirubin (direct) 0.07 mg/dL Invalid Interpretation Code 0.00-0.30 [facility] Bilirubin (total) 0.30 mg/dL Invalid Interpretation Code 0.20-1.00 [facility] Globulin 3.5 g/dL Invalid Interpretation Code 2.3-3.5 [facility] Protein 7.2 g/dL Invalid Interpretation Code 6.4-8.2 [facility] Office Visit: RUQ pain, dila mary anne CBD, no GS on U/Son 12-09-2016 Fall risk assessment No Invalid Interpretation Code [facility] Office Visit: RUQ pain, dila mary anne CBD, no GS on U/Son 08-29-2015 Breast Mammogram screening Normal Bilateral Invalid Interpretation Code [facility] General categories [Interpretation] of Cervical or vaginal smear or scraping by Cyto stain Normal Invalid Interpretation Code [facility] No Panel Informationon 03-04 [facility] Vital Signs Date Time Vital Sign Value Performing Clinician Facility 09-06-2023 13:50-0500 Body temperature 97 [degF] Renita Thomae DO Work Phone: [facility] 09-06-2023 13:50-0500 Diastolic blood pressure 62 mm[Hg] Renita Thomae DO Work Phone: [facility] 09-06-2023 13:50-0500 Heart rate 59 /min Renita Thomae DO Work Phone: [facility] 09-06-2023 13:50-0500 Respiratory rate 16 /min Renita Thomae DO Work Phone: [facility] 09-06-2023 13:50-0500 SaO2% (BldA) [Mass fraction] 94 % Renita Thomae DO Work Phone: [facility] 09-06-2023 13:50-0500 Systolic blood pressure 111 mm[Hg] Renita Thomae DO Work Phone: [facility] 02-24-2023 15:16-0400 Body temperature 97.7 [degF] DR PJ MAHONEY MD [facility] 02-24-2023 15:16-0400 Diastolic Blood Pressure Non-Invasive [address] PJ MAHONEY MD [facility] 02-24-2023 15:16-0400 Heart rate 66 /min DR PJ MAHONEY MD [facility] 02-24-2023 15:16-0400 Reason For Taking VItal Signs DR PJ MAHONEY MD [facility] 02-24-2023 15:16-0400 Respiratory rate 16 /min DR PJ MAHONEY MD [facility] 02-24-2023 15:16-0400 Systolic Blood Pressure Non-Invasive [address] PJ MAHONEY MD [facility] 02-24-2023 11:13-0400 Body temperature 98.42 [degF] DR PJ MAHONEY MD [facility] 02-24-2023 11:13-0400 Diastolic Blood Pressure Non-Invasive [address] PJ MAHONEY MD [facility] 02-24-2023 11:13-0400 Heart rate 71 /min DR PJ MAHONEY MD [facility] 02-24-2023 11:13-0400 Reason For Taking VItal Signs DR PJ MAHONEY MD [facility] 02-24-2023 11:13-0400 Respiratory rate 16 /min DR PJ MAHONEY MD [facility] 02-24-2023 11:13-0400 Systolic Blood Pressure Non-Invasive [address] PJ MAHONEY MD [facility] 02-24-2023 09:07-0400 Heart rate 84 /min DR PJ MAHONEY MD [facility] 02-24-2023 08:58-0400 Diastolic Blood Pressure Non-Invasive [address] PJ MAHONEY MD [facility] 02-24-2023 08:58-0400 Systolic Blood Pressure Non-Invasive [address] PJ MAHONEY MD [facility] 02-24-2023 08:12-0400 Body temperature 97.88 [degF] DR PJ MAHONEY MD [facility] 02-24-2023 08:12-0400 Heart rate 74 /min DR PJ MAHONEY MD [facility] 02-24-2023 08:12-0400 Reason For Taking VItal Signs DR PJ MAHONEY MD [facility] 02-24-2023 08:12-0400 Respiratory rate 18 /min DR PJ MAHONEY MD [facility] 02-23-2023 22:43-0400 Heart rate 60 /min DR PJ MAHONEY MD [facility] 02-23-2023 20:04-0400 Heart rate 64 /min DR PJ MAHONEY MD [facility] 02-23-2023 14:32-0400 Heart rate 82 /min DR PJ MAHONEY MD [facility] 02-23-2023 11:40-0400 Heart rate 70 /min DR PJ MAHONEY MD [facility] 02-22-2023 14:40-0400 Body height 162.[address] PJ MAHONEY MD [facility] 02-22-2023 14:40-0400 Body weight [address] PJ MAHONEY MD [facility] 02-22-2023 14:40-0400 Body weight 41.61 kg/m2 DR PJ MAHONEY MD [facility] 02-22-2023 13:15-0400 Body temperature 96.26 [degF] DR PJ MAHONEY MD [facility] 02-22-2023 12:04-0400 Body temperature 97.7 [degF] DR PJ MAHONEY MD [facility] 02-22-2023 12:00-0400 Respiratory Rate - Anes 3 br/min DR PJ MAHONEY MD [facility] 02-22-2023 11:55-0400 Respiratory Rate - Anes 26 br/min DR PJ MAHONEY MD [facility] 02-22-2023 11:50-0400 Body temperature 96.84 [degF] DR PJ MAHONEY MD [facility] 02-22-2023 11:50-0400 Respiratory Rate - Anes 23 br/min DR PJ MAHONEY MD [facility] 02-22-2023 11:45-0400 Body temperature 96.85 [degF] DR PJ MAHONEY MD [facility] 02-22-2023 11:40-0400 Body temperature 96.89 [degF] DR PJ MAHONEY MD [facility] 02-22-2023 09:31-0400 Body height 162.[address] PJ MAHONEY MD [facility] 02-22-2023 09:31-0400 Body temperature 98.42 [degF] DR PJ MAHONEY MD [facility] 02-22-2023 09:31-0400 Body weight [address] PJ MAHONEY MD [facility] 02-03-2023 13:58-0400 Blood Pressure Cuff Size DR PJ MAHONEY MD [facility] 02-03-2023 13:58-[address] PJ MAHONEY MD [facility] 02-03-2023 13:58-[address] PJ MAHONEY MD [facility] 02-03-2023 13:58-0400 Body height 162.[address] PJ MAHONEY MD [facility] 02-03-2023 13:58-0400 Body weight [address] PJ MAHONEY MD [facility] 02-03-2023 13:58-0400 Body weight 41.61 kg/m2 DR PJ MAHONEY MD [facility] 02-03-2023 13:58-0400 Diastolic Blood Pressure Non-Invasive [address] PJ MAHONEY MD [facility] 02-03-2023 13:58-0400 Heart rate 73 /min DR PJ MAHONEY MD [facility] 02-03-2023 13:58-0400 Systolic Blood Pressure Non-Invasive [address] PJ MAHONEY MD [facility] 09-17-2022 18:10-0500 Body temperature 98 [degF] Dr. Rica Padgett Work Phone: [facility] 09-17-2022 18:10-0500 Diastolic blood pressure 65 mm[Hg] Dr. Rica Padgett Work Phone: [facility] 09-17-2022 18:10-0500 Heart rate 75 /min Dr. Rica Padgett Work Phone: [facility] 09-17-2022 18:10-0500 Respiratory rate 16 /min Dr. Rica Padgett Work Phone: [facility] 09-17-2022 18:10-0500 SaO2% (BldA) [Mass fraction] 901 % Dr. Rica Padgett Work Phone: [facility] 09-17-2022 18:10-0500 Systolic blood pressure 119 mm[Hg] Dr. Rica Padgett Work Phone: [facility] 09-17-2022 11:45-0500 Body height 162.[address] Rica Padgett Work Phone: [facility] 09-17-2022 11:45-0500 Body weight 121.[address] Rica Padgett Work Phone: [facility] 09-16-2022 19:21-0500 Inhaled oxygen flow rate 2 L/min Dr. Rica Padgett Work Phone: [facility] 09-16-2022 19:15-0500 Body mass index (BMI) [Ratio] 46.1 kg/m2 Dr. Rica Padgett Work Phone: [facility] 09-13-2022 10:21-0500 Body mass index (BMI) [Ratio] 42.7 kg/m2 Dr. Rica Padgett Work Phone: [facility] 09-13-2022 10:21-0500 Body temperature 95.4 [degF] Dr. Rica Padgett Work Phone: [facility] 09-13-2022 10:21-0500 Body weight 116.[address] Rica Padgett Work Phone: [facility] 09-13-2022 10:21-0500 Diastolic blood pressure 80 mm[Hg] Dr. Rica Padgett Work Phone: [facility] 09-13-2022 10:21-0500 Heart rate 84 /min Dr. Rica Padgett Work Phone: [facility] 09-13-2022 10:21-0500 Respiratory rate 20 /min Dr. Rica Padgett Work Phone: [facility] 09-13-2022 10:21-0500 SaO2% (BldA) [Mass fraction] 90 % Dr. Rica Padgett Work Phone: [facility] 09-13-2022 10:21-0500 Systolic blood pressure 137 mm[Hg] Dr. Rica Padgett Work Phone: [facility] 05-19-2022 14:14-0400 Body temperature 95.3 [degF] Dr. Rica Padgett Work Phone: [facility] Work Phone: 05-19-2022 14:14-0400 Diastolic blood pressure 90 mm[Hg] Dr. Rica Padgett Work Phone: [facility] Work Phone: 05-19-2022 14:14-0400 Heart rate 81 /min Dr. Rica Padgett Work Phone: [facility] Work Phone: 05-19-2022 14:14-0400 Respiratory rate 20 /min Dr. Rica Padgett Work Phone: [facility] Work Phone: 05-19-2022 14:14-0400 SaO2% (BldA) [Mass fraction] 91 % Dr. Rica Padgett Work Phone: [facility] Work Phone: 05-19-2022 14:14-0400 Systolic blood pressure 156 mm[Hg] Dr. Rica Padgett Work Phone: [facility] Work Phone: 03-29-2022 09:18-0400 Body mass index (BMI) [Ratio] 42.9 kg/m2 Dr. Rica Padgett Work Phone: [facility] Work Phone: 03-29-2022 09:18-0400 Body temperature 96.3 [degF] Dr. Rica Padgett Work Phone: [facility] Work Phone: 03-29-2022 09:18-0400 Body weight 117.[address] Rica Padgett Work Phone: [facility] Work Phone: 03-29-2022 09:18-0400 Diastolic blood pressure 80 mm[Hg] Dr. Rica Padgett Work Phone: [facility] Work Phone: 03-29-2022 09:18-0400 Heart rate 80 /min Dr. Rica Padgett Work Phone: [facility] Work Phone: 03-29-2022 09:18-0400 Respiratory rate 20 /min Dr. Rica Padgett Work Phone: [facility] Work Phone: 03-29-2022 09:18-0400 SaO2% (BldA) [Mass fraction] 95 % Dr. Rica Padgett Work Phone: [facility] Work Phone: 03-29-2022 09:18-0400 Systolic blood pressure 162 mm[Hg] Dr. Rica Padgett Work Phone: [facility] Work Phone: 01-31-2022 03:58-0400 Diastolic blood pressure 82 mm[Hg] Dr. Rica Padgett Work Phone: [facility] Work Phone: 01-31-2022 03:58-0400 Heart rate 53 /min Dr. Rica Padgett Work Phone: [facility] Work Phone: 01-31-2022 03:58-0400 Respiratory rate 16 /min Dr. Rica Padgett Work Phone: [facility] Work Phone: 01-31-2022 03:58-0400 SaO2% (BldA) [Mass fraction] 98 % Dr. Rica Padgett Work Phone: [facility] Work Phone: 01-31-2022 03:58-0400 Systolic blood pressure 114 mm[Hg] Dr. iRca Padgett Work Phone: [facility] Work Phone: 01-30-2022 23:11-0400 Body height 162.[address] Rica Padgett Work Phone: [facility] Work Phone: 01-30-2022 23:11-0400 Body mass index (BMI) [Ratio] 42 kg/m2 Dr. Rica Padgett Work Phone: [facility] Work Phone: 01-30-2022 23:11-0400 Body temperature 97.9 [degF] Dr. Rica Padgett Work Phone: [facility] Work Phone: 01-30-2022 23:11-0400 Body weight 111.[address] Rica Padgett Work Phone: [facility] Work Phone: 01-25-2022 15:13-0400 Diastolic blood pressure 89 mm[Hg] Dr. Rica Padgett Work Phone: [facility] Work Phone: 01-25-2022 15:13-0400 Heart rate 78 /min Dr. Rica Padgett Work Phone: [facility] Work Phone: 01-25-2022 15:13-0400 Respiratory rate 18 /min Dr. Rica Padgett Work Phone: [facility] Work Phone: 01-25-2022 15:13-0400 SaO2% (BldA) [Mass fraction] 97 % Dr. Rica Padgett Work Phone: [facility] Work Phone: 01-25-2022 15:13-0400 Systolic blood pressure 143 mm[Hg] Dr. Rica Padgett Work Phone: [facility] Work Phone: 01-25-2022 12:56-0400 Body height 162.[address] Rica Padgett Work Phone: [facility] Work Phone: 01-25-2022 12:56-0400 Body mass index (BMI) [Ratio] 42.9 kg/m2 Dr. Rica Padgett Work Phone: [facility] Work Phone: 01-25-2022 12:56-0400 Body temperature 98.2 [degF] Dr. Rica Padgett Work Phone: [facility] Work Phone: 01-25-2022 12:56-0400 Body weight 113.[address] Rica Padgett Work Phone: [facility] Work Phone: 09-25-2021 14:30-0500 Body temperature 98.5 [degF] Dr. Rica Padgett Work Phone: [place] [facility] Work Phone: 09-25-2021 14:30-0500 Diastolic blood pressure 78 mm[Hg] Dr. Rica Padgett Work Phone: [facility] Work Phone: 09-25-2021 14:30-0500 Heart rate 68 /min Dr. Rica Padgett Work Phone: [facility] Work Phone: 09-25-2021 14:30-0500 Respiratory rate 16 /min Dr. Rica Padgett Work Phone: [facility] Work Phone: 09-25-2021 14:30-0500 SaO2% (BldA) [Mass fraction] 93 % Dr. Rica Padgett Work Phone: [facility] Work Phone: 09-25-2021 14:30-0500 Systolic blood pressure 144 mm[Hg] Dr. Rica Padgett Work Phone: [facility] Work Phone: 09-25-2021 09:44-0500 Body height 162.[address] Rica Padgett Work Phone: [facility] Work Phone: 09-25-2021 09:44-0500 Body mass index (BMI) [Ratio] 42.9 kg/m2 Dr. Rica Padgett Work Phone: [facility] Work Phone: 09-25-2021 09:44-0500 Body weight 113.[address] Rica Padgett Work Phone: [facility] Work Phone: 05-22-2021 01:30-0400 Diastolic blood pressure 66 mm[Hg] Rica Padgett Other Phone: [facility] 05-22-2021 01:30-0400 Heart rate 72 /min Rica Padgett Other Phone: [facility] 05-22-2021 01:30-0400 Respiratory rate 16 /min Rica Padgett Other Phone: [facility] 05-22-2021 01:30-0400 SaO2% (BldA) [Mass fraction] 96 % Rica Padgett Other Phone: [facility] 05-22-2021 01:30-0400 Systolic blood pressure 138 mm[Hg] Rica Padgett Other Phone: [facility] 05-21-2021 22:35-0400 Body height 162.5 cm Ricagavin Padgett Other Phone: [facility] 05-21-2021 22:35-0400 Body temperature 97.16 [degF] Rica Padgett Other Phone: [facility] 05-21-2021 22:35-0400 Body weight 109.3 kg Rica Padgett Other Phone: [facility] 02-13-2021 05:12-0400 Diastolic blood pressure 73 mm[Hg] Rica Amishys Other Phone: [facility] 02-13-2021 05:12-0400 Heart rate 55 /min Rica Amishys Other Phone: [facility] 02-13-2021 05:12-0400 Respiratory rate 18 /min Rica Amishys Other Phone: [facility] 02-13-2021 05:12-0400 SaO2% (BldA) [Mass fraction] 92 % Rica Wellingtonys Other Phone: [facility] 02-13-2021 05:12-0400 Systolic blood pressure 143 mm[Hg] Rica Amishys Other Phone: [facility] 02-13-2021 02:01-0400 Body temperature 97.16 [degF] Rica Wellingtonys Other Phone: [facility] 07-25-2017 14:03-0500 BMI (Body Mass Index) 39.79 kg/m2 Azra Gee NP [facility] 07-25-2017 14:03-0500 BP Diastolic 78 mm[Hg] Azra Gee DEPARTMENT OF MATHEMATICS CHAIR [facility] 07-25-2017 14:03-0500 BP Systolic 128 mm[Hg] Azra Gee NP [facility] 07-25-2017 14:03-0500 Height 161.93 cm Azra Gee NP [facility] 07-25-2017 14:03-0500 Weight 104.33 kg Azra Gee NP [facility] 12-09-2016 11:09-0400 Body Temperature 98 [degF] Azra G[facility] NP [facility] 12-09-2016 11:09-0400 BSA (Body Surface Area) 2.11 m2 Azra Gee NP [facility] 12-09-2016 11: Pulse (Heart Rate) 86 /min Azra Gee NP [facility] 12-09-2016 11:09040 Respiratory Rate 18 /min Azra Gee NP [facility] Encounters Encounter Date Encounter Type Care Provider Facility Start: 07-03-2025 End: 07-03-2025 ambulatory Rafi Berry Facility:[facility] Start: 06-24-2025 End: 06-24-2025 ambulatory Rica Malys Facility:[facility] Start: 06-21-2025 ambulatory Rica Malys [facility] Start: 06-19-2025 ambulatory Rica Malys Facility:[facility] Start: 06-03-2025 End: 06-03-2025 ambulatory Pj Lee Facility:[facility] Start: 05-24-2025 End: 05-24-2025 ambulatory Rica Malys [facility] Start: 05-15-2025 ambulatory Maynard Mendel [facility] Start: 05-14-2025 End: 05-14-2025 ambulatory Maynard Mendel Facility:[facility] Start: 05-09-2025 ambulatory Rica Malys Facility:[facility] Start: 04-22-2025 End: 04-22-2025 ambulatory Rica Malys [facility] Start: 04-03-2025 End: 04-03-2025 ambulatory Rica Malys [facility] Start: 03-28-2025 End: 03-28-2025 Emergency department patient visit Rica Malys Facility:[facility] Start: 03-28-2025 ambulatory Rica Malys Facility:[facility] Start: 03-25-2025 ambulatory Rica Malys [facility] Start: 03-25-2025 ambulatory Rica Malys [facility] Start: 03-25-2025 End: 03-26-2025 Evaluation and management of inpatient Rica Malys Facility:[facility] Start: 03-21-2025 End: 03-21-2025 ambulatory Rica Malys [facility] Start: 03-15-2025 ambulatory Rica Malys [facility] Start: 03-15-2025 End: 03-18-2025 Evaluation and management of inpatient Rica Malys Facility:[facility] Start: 03-11-2025 End: 03-11-2025 ambulatory Rica Malys [facility] Start: 02-18-2025 ambulatory Rica Malys [facility] Start: 02-09-2025 End: 02-09-2025 ambulatory Rica Malys Facility:[facility] Start: 02-04-2025 End: 02-04-2025 ambulatory Rica Malys Facility:[facility] Start: 01-07-2025 End: 01-07-2025 ambulatory Rica Malys [facility] Start: 01-03-2025 End: 01-03-2025 ambulatory Rica Malys Facility:[facility] Start: 11-29-2024 ambulatory Rica Malys [facility] Start: 11-29-2024 End: 11-29-2024 ambulatory Rica Malys Facility:[facility] Start: 11-20-2024 End: 11-20-2024 Emergency department patient visit Rica Malys Facility:[facility] Start: 11-19-2024 End: 11-19-2024 ambulatory Rica Malys [facility] Start: 10-15-2024 End: 10-15-2024 Emergency department patient visit Rm Keating Facility:[facility] Start: 10-12-2024 End: 10-12-2024 Emergency department patient visit Uday Kike Facility:[facility] Start: 10-08-2024 End: 10-08-2024 ambulatory Rica Malys [facility] Start: 09-03-2024 End: 09-03-2024 ambulatory Pj Lee Facility:[facility] Start: 07-27-2024 End: 07-28-2024 ambulatory David Caruso Facility:[facility] Start: 07-13-2024 End: 07-13-2024 ambulatory Martin Trejo Facility:[facility] Start: 11-03-2023 Telephone encounter Yovanny Rogers i, MD Work Phone: [facility] Comment on above: Referral (Confirm re ceipt of referral faxed 11/01/23) Start: 09-06-2023 End: 09-07-2023 ambulatory RENITA MIJARES [facility] Start: 09-06-2023 End: 09-06-2023 Subsequent hospital visit by physician Renita Mijares DO Work Phone: [facility] Comment on above: Diarrhea, unspecifie d type (Primary Dx) Start: 02-22-2023 End: 02-24-2023 ambulatory PJ MAHONEY Facility:[facility] Start: 02-22-2023 End: 02-24-[address] PJ MAHONEY MD [facility] Start: 02-03-2023 End: 02-04-2023 ambulatory PJ MAHONEY Facility:B Start: 02-03-2023 End: 02-04-2023 ambulatory PJ MAHONEY Facility:[facility] Start: 02-03-2023 End: 02-03-[address] PJ MAHONEY MD [facility] Start: 02-03-2023 End: 02-03-[address] PJ MAHONEY MD [facility] Start: 10-06-2022 Telephone encounter Tre Anderson DO Work Phone: [facility] Comment on above: Page Out Start: 09-27-2022 Orders Only Nicolás Swenson Work Phone: Orthopaedics Comment on above: 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 Rica Padgett Work Phone: [facility] Work Phone: Start: 09-20-2022 End: 09-20-[address] Rica Padgett Work Phone: [facility] Start: 09-17-2022 Non-patient / Non-visit Dr. Angela Padgett Work Phone: [facility] Start: 09-17-2022 Non-patient / Non-visit Dr. Angela Padgett Work Phone: [facility] Start: 09-16-2022 Non-patient / Non-visit Dr. Angela Padgett Work Phone: [facility] Start: 09-16-2022 End: 09-17-2022 Evaluation and management of inpatient [facility] Start: 09-15-2022 End: 09-15-[address] Rica Padgett Work Phone: [facility] Work Phone: Start: 09-15-2022 End: 09-15-[address] Rica Padgett Work Phone: [facility] Start: 09-13-2022 End: 09-13-[address] Rica Padgett Work Phone: [facility] Start: 07-07-2022 End: 07-07-[address] Rica Padgett Work Phone: [facility] Work Phone: Start: 07-07-2022 End: 07-07-[address] Rica Padgett Work Phone: [facility] Start: 06-23-2022 Telephone encounter Nicolás velazquez MD Work Phone: Orthopaedics Comment on above: Question Start: 05-19-2022 End: 05-19-[address] Rica Padgett Work Phone: [facility] Start: 05-19-2022 End: 05-19-2022 ambulatory NICOLÁS AGGARWAL Facility:[facility] Start: 05-19-2022 End: 05-19-2022 Patient encounter procedure Nicolás Aggarwal MD Work Phone: Orthopaedics Comment on above: Pes planus of left f oot (Primary Dx); Primary osteoarthritis of left foot; Diabetic neuropathy, painful (HCC); Acquired valgus deformity of left ankle Start: 05-19-2022 End: 05-19-2022 Subsequent hospital visit by physician [facility] Rej Work Phone: Radiology Comment on above: Pain [R52] Start: 03-29-2022 End: 03-29-[address] Rica Padgett Work Phone: [facility] Start: 01-30-2022 End: 01-31-2022 Emergency department patient visit Dr. Rica Padgett Work Phone: [facility] Start: 01-25-2022 End: 01-25-2022 Emergency department patient visit Dr. Rica Padgett Work Phone: [facility] Start: 11-12-2021 End: 11-12-[address] Rica Padgett Work Phone: [facility] Start: 11-11-2021 End: 11-11-[address] Rica Padgett Work Phone: [facility] Start: 11-10-2021 End: 11-10-[address] Rica Padgett Work Phone: [facility]-Pre-Admission Testing Start: 11-10-2021 Non-patient / Non-visit Dr. Angela Padgett Work Phone: [facility] Start: 09-25-2021 End: 09-25-2021 Admission to same day surgery center Dr. Rica Padgett Work Phone: [facility] Start: 08-07-[address] Rica Padgett Work Phone: [facility] Start: 05-21-2021 End: 05-22-2021 Emergency department patient visit Silvana Henderson [facility] Emergency 11 Start: 02-13-2021 End: 02-13-2021 Emergency department patient visit Jesus Amezquita [facility] Emergency 11 Start: 02-08-2020 End: 02-08-2020 Patient encounter procedure PB DRUMMOND [facility] Start: 02-07-2015 End: 02-07-2015 Telephone encounter Azra Gee Work Phone: OB/Gynecology Comment on above: Yearly Exam With Jermaine mogram Procedures Date Procedure Procedure Detail Performing Clinician Start: 09-06-2023 DISCHARGE PATIENT RENITA THOMKIT Start: 09-06-2023 PLACE IN OUTPATIENT/HOSPITAL AMBULATORY SURGERY [...] 1996 panel - S alanna or Plasma Trelevi Anderson DO Work Phone: Start: 10-01-2022 Thyrotropin [Units/v olume] in Serum or Plasma Tre Jopptiti DO Work Phone: Start: 09-16-2022 CT angiography [...] 07-25-2017 Pelvic & Breast Exam (Medicare) Azra Guzman Marlen DEPARTMENT OF MATHEMATICS CHAIR Work Phone: Start: 12-09-2016 End: 12-09-2016 *BMP Hanna Urbano MD Work Phone: Start: 12-09-2016 End: 12-10-2016 *Hepatic Function Panel Hanna vargas MD Work Phone: Start: 12-09-2016 End: 12-09-2016 Lipase [Enzymatic activity/volume] in Serum or Plasma Hanna Urbano MD Work Phone: Start: 03-22-2016 Mammography Azra Diaz bruna Work Phone: Start: 03-04-2015 MAMMOGRAM SCREENING BAM Azra Marlen Work Phone: Start: 03-19-2003 Colonoscopy Azra mcfarland [...] for malign ant neoplasm of colon [facility] Start: 05-22-2029 Screening for malign ant neoplasm of colon [facility] Start: 10-05-2025 Diabetes mellitus screening Diabetes Screening [facility] Start: 10-05-2023 Hemoglobin A1c measurement Diabetes: Hemoglobin A1C [facility] Start: 10-01-2023 Lipid panel Lipid Panel [facility] Start: 10-01-2023 Thyroid stimulating hormone measurement TSH Level [facility] Start: 08-29-2023 Medicare Advantage A nnual Wellness Visit Medicare Advantage Annual Wellness Visit [facility] Start: 08-05-2023 COVID-19 Vaccine (4 - Pfizer series) COVID-19 Vaccine (4 - Pfizer series) [facility] Start: 2023 Advance Directive Discussion Advance Directive Discussion [facility] Start: 2023 Bone Density Screening Bone Density Screening [facility] Start: 2023 Pneumococcal Vaccine : 65+ Years (2 of 2 - PCV) Pneumococcal Vaccine: 65+ Years (2 of 2 - PCV) [facility] Start: 04-29-2023 COVID-19 Vaccine ( season) COVID-19 Vaccine ( season) [facility] Start: 04-29-2023 Influenza vaccination Influenza Vacc ine (#1) [facility] Start: 04-01-2023 Depresssion Monitoring Depresssion M onitoring [facility] Start: 01-02-2023 Hemoglobin A1c measurement Diabetes: Hemoglobin A1C [facility] Start: 09-17-2022 Patient discharge [facility] Start: 09-16-2022 Ambulation without limitation [facility] Start: 09-16-2022 Assessment of risk o f venous thromboembolism [facility] Start: 09-16-2022 Care regimes management [facility] Start: 09-16-2022 Catheterization of vein [facility] Start: 09-16-2022 Continuous positive airway pressure ventilation treatment [facility] Start: 09-16-2022 Insertion of cathete r into peripheral vein [facility] Start: 09-16-2022 Notification of physician [facility] Start: 09-16-2022 Oxygen therapy [facility] Start: 09-16-2022 Providing care accor ding to standard [facility] Start: 09-16-2022 [facility] Start: 09-16-2022 Admission procedure [facility] Start: 09-16-2022 Following clinical pathway protocol [facility] Start: 09-16-2022 Patient referral to dietitian [facility] Start: 08-29-2022 DEPRESSION ASSESSMENT DEPRESSION ASS ESSMENT [facility] Start: 04-29-2022 Influenza vaccination INFLUENZA (#1) [facility] Start: 04-09-2022 DIABETES SCREEN DIABETES SCREEN [facility] Start: 09-25-2021 Anesthesia lumbar re gion nos ANESTH SPINE CORD SURGERY [facility] Work Phone: Start: 09-25-2021 Impltj/rplcmt ithcl/ edrl drug nfs prgrbl pump IMPLANT SPINE INFUSION PUMP [facility] Work Phone: Start: 08-29-2021 DEPRESSION ASSESSMENT DEPRESSION ASS ESSMENT [facility] Start: 04-29-2021 Influenza vaccination INFLUENZ A (Season Ended) [facility] Start: 04-09-2020 Hepatitis B screening URINE ALBUMIN:CREATININE RATIO [facility] Start: 2018 Hepatitis B Vaccine (1 of 3 - Risk 3-dose series) Hepatitis B Vaccine (1 of 3 - Risk 3-dose series) [facility] Start: 2018 RSV Immunization age d 60 or older (1 - 1-dose 60+ series) RSV Immunization aged 60 or older (1 - 1-dose 60+ series) [facility] Start: 07-25-2017 End: 07-25-2017 Appointment Appointment [facility] Start: 03-22-2017 Mammography [facility] Start: 12-09-2016 End: 12-09-2016 *BMP *BMP [facility] Start: 12-09-2016 End: 12-10-2016 *Hepatic Function Panel *Hepatic Function Panel [facility] Start: 12-09-2016 End: 12-09-2016 Ct abdomen & pelvis w/contrast material CT Abdomen/pelvis; with contrast [facility] Start: 12-09-2016 End: 12-10-2016 Follow Up after Imaging/labs Follow Up after Imaging/labs [facility] Start: 12-09-2016 End: 12-09-2016 Lipase *Lipase [facility] Start: 12-08-2015 End: 12-08-2015 *CBC with Differential *CBC with Differential [facility] Start: 12-08-2015 End: 12-08-2015 *CMP Complete Metabolic Panel *CMP Complete Metabolic Panel [facility] Start: 12-08-2015 End: 12-08-2015 *PROTS Protein S Defic. Profile [id number] *PROTS Protein S Defic. Profile [id number] [facility] Start: 12-08-2015 End: 12-08-2015 *UA - Urinalysis w/o Micro *UA - Urinalysis w/o Micro [facility] Start: 12-08-2015 End: 12-08-2015 Antithrombin actual/normal in Platelet poor plasma by Chromogenic method *AT3 - Antithrombin 3 Activity [id number] [facility] Start: 12-08-2015 End: 12-08-2015 Cardiolipin Antibodies (IgA IgG IgM) Cardiolipin Antibodies (IgA IgG IgM) [facility] Start: 12-08-2015 End: 12-08-2015 Clotting inhibitors protein c activity Protein C Activity [facility] Start: 12-08-2015 End: 12-08-2015 Ct thorax w/contrast material CT Chest with Contrast [facility] Start: 12-08-2015 End: 12-08-2015 Factor V (Leiden) Mutation Analysis Factor V (Leiden) Mutation Analysis [facility] Start: 12-08-2015 End: 12-08-2015 Lipid panel [AGGREGATE] *[facility] Start: 12-08-2015 End: 12-08-2015 Thyroid stimulating hormone (TSH) *TSH [facility] Start: 12-08-2015 End: 12-08-2015 Urine, microalbumin *Urine, Microalbumin [facility] Start: 07-29-2015 LIPID SCREEN LIPID SCREEN [facility] Start: 02-26-2014 Screening for malign ant neoplasm of colon SIGMOIDOSCOPY [facility] Start: 02-26-2014 SIGMOIDOSCOPY SIGMOIDOSCOPY [facility] Start: 03-19-2013 Colonoscopy COLONOSCOPY [facility] Start: 03-19-2013 COLORECTAL CANCER SCREENING COLORECTAL CANCER SCREENING [facility] Start: 03-19-2013 Screening for malign ant neoplasm of colon [facility] Start: 07-03-2011 Hemoglobin A1c/Hemoglobin.total in Blood HBA1C [facility] Start: 2008 Screening for malign ant neoplasm of colon [facility] Start: 2008 SHINGRIX VACCINE (1 of 2) ROMAN GRIX VACCINE (1 of 2) [facility] Start: 2003 COLOGUARD (FIT-DNA) COLOGUARD (FIT-D NA) [facility] Start: [address] COLONOGRAPHY [facility] Start: 2003 FECAL OCCULT BLOOD FECAL OCCULT BLOO D [facility] Start: 1998 Screening for malign ant neoplasm of breast Mammogram [facility] Start: 1988 Screening for malign ant neoplasm of cervix [facility] Start: 1980 DTaP/Tdap/Td Vaccine s (1 - Tdap) DTaP/Tdap/Td Vaccines (1 - Tdap) [facility] Start: 1979 Screening for malign ant neoplasm of cervix 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 ANNUAL PCP TEAM CHRONIC DISEASE VISIT [facility] Start: 1976 Hepatitis B surface antibody level LDL CHOLESTEROL [facility] Start: 1976 HEPATITIS C [facility]CRE[facility]ING [facility] Start: 1976 Hepatitis C screening Hepatitis C [facility] Start: 1976 HIV SCREENING HIV SCREENING [facility] Start: 1970 Adult depression screening assessment DEPRESSION SCREENING [facility] Start: 1968 3 comp foot exam completed DIABETIC FOOT EXAM [facility] Start: 1968 Diabetic foot examination Diabetes: Foot Exam [facility] Start: 1968 Glaucoma screening Diabetes: R etinopathy Screening [facility] Start: 1968 Hepatitis B screening Urine Albumin:Creatinine Ratio [facility] Start: 1968 Hepatitis C antibody , confirmatory test DILATED RETINAL EXAM [facility] Start: 1968 Preventive dental service Diabetes: Dental Exam [facility] Start: 1964 PNEUMOCOCCAL (1 - PCV) PNEUMOCOCCAL (1 - PCV) [facility] Start: 1964 Pneumococcal Vaccine : 65+ (1 - PCV) Pneumococcal Vaccine: 65+ (1 - PCV) [facility] Start: 1959 MMR Vaccines (1 of 1 - Standard series) MMR Vaccines (1 of 1 - Standard series) [facility] Start: 1958 COVID-19 VACCINE (#1) COVID-19 VACCI NE (#1) [facility] Start: 1958 Annual wellness visit Medicare Initial Physical (IPPE) [facility] Start: 1958 Hepatitis B Vaccines (1 of 3 - 3-dose series) Hepatitis B Vaccines (1 of 3 - 3-dose series) [facility] Start: 1958 HIV screening HIV Screening [facility] Start: 1958 Lipid panel Lipid Panel [facility] Start: 1958 Screening for malign ant neoplasm of colon [facility] Start: 1958 Screening for osteoporosis Bone Density Scan [facility] Start: 1958 Thyroid stimulating hormone measurement TSH Level [facility] End: 09-06-2023 Moderate Sedation Moderate Sedation Procedures Routine Once for 1 Occurrences starting 09/06/2023 until 09/06/2023 [facility] Service Area Work Phone: Comment on above: Once for 1 Occurrenc es starting 09/06/2023 until 09/06/2023 Patient Education [facility] Patient referral [facility] Work Phone: End: 10-27-2023 XR ANKLE GENERAL 3V AP/LAT/OBL LEFT XR ANKLE GENERAL 3V AP/LAT/OBL LEFT Radiology Routine Acquired valgus deformity of left ankle 1 Occurrences starting 09/28/2022 until 10/27/2023 [facility] Work Phone: Comment on above: 1 Occurrences starti ng 09/28/2022 until 10/27/2023 [facility] Immunizations Immunization Date Immunization Notes Care Provider [facility] 06-16-2022 influenza virus vaccine, unspecified formulation Yovanny Landis MD Work Phone: [facility] 06-25-2018 influenza virus vaccine, unspecified formulation Xr Rej Work Phone: [facility] 05-29-2015 influenza, seasonal, injectable Dr. Rica Padgett Work Phone: [facility] 06-29-[address] Rica Padgett Work Phone: [facility] 07-26-2012 influenza virus vaccine, unspecified formulation Azra Gee Work Phone: [facility] 05-13-[address] Danya Padgett Work Phone: [facility] Work Phone: 05-13-2012 pneumococcal vaccine , unspecified formulation Dr. Rica Padgett Work Phone: [facility] NEGATED: Highlighted row has not occurred!10-03-2022 Influenza, injectable, Madin Macrina Canine Kidney, preservative free, quadrivalent Tre Anderson DO Work Phone: [employer] Comment on above: Deferred: Patient Re fused Payers Date Payer Category Payer [facility] [employer] [employer] ( and others) [id number] 03-21-2025 [employer] others) [id number] 06-06-2024 Self-pay [id number] 08-29-2022 [employer] ( and others) 1.2.840.711343.1.13.647.2 .7.3.592936.315 08-29-2022 [employer] ( and others) [id number] 08-11-2022 Private Health Insurance [id number] 08-11-2022 Medicare [id number] 04-27-2017 Unknown [id number] 07-26-2013 [employer] ( and others) [id number] 07-26-2013 Unknown FOR LIFE [id number] 07/26/2013-Present Indemnity [id number] 1.2.840.925959.1.13.159.2 .7.3.514620.315 08-29-2007 Medicare MEDICARE MEDICAR E B [id number] 08/29/2007-03/06/2016 [place] [id number] 1.2.840.684108.1.13.159.2 .7.3.046743.315 08-29-2007 Medicare 1.2.840.620253. 1.13.159.2 .7.3.809488.315 06-29-2004 Medicare [id number] 06-29-2004 Medicare MEDICARE MEDICAR E A AND B [id number] 06/29/2004-Present [place] [id number] 1.2.840.012444.1.13.159.2 .7.3.043707.315 06-29-2004 Unknown 1960 Unknown [id number] 2.16.840.1.657035.3.579.2 .651 1960 Unknown [id number] 2.16.840.1.671233.3.579.2 .627 1960 Unknown [id number] 2.16.840.1.626937.3.579.2 .627 1960 Unknown [id number] 2.16.840.1.974854.3.579.2 .627 1960 Unknown [id number] 2.16.840.1.868608.3.579.2 .1243 Unknown [id number] 2.16.840.1.100369.3.579.2 .462 Unknown [id number] 2.16.840.1.642235.3.579.2 .462 Unknown [id number] 2.16.840.1.161168.3.579.2 .462 Unknown [id number] 2.16.840.1.635461.3.579.2 .462 Unknown [id number] 2.16.840.1.150427.3.579.2 .462 Unknown [id number] 2.16.840.1.412999.3.579.2 .462 Unknown [id number] 2.16.840.1.664790.3.579.2 .462 Unknown [id number] 2.16.840.1.072562.3.579.2 .462 Unknown [id number] 2.16.840.1.639040.3.579.2 .462 Unknown [id number] 2.16.840.1.275136.3.579.2 .462 Unknown [id number] 2.16.840.1.579310.3.579.2 .462 Unknown [id number] 2.16.840.1.900111.3.579.2 .462 Unknown [id number] 2.16.840.1.897060.3.579.2 .462 Unknown [id number] 2.16.840.1.196812.3.579.2 .462 Unknown [id number] 2.840.1.193496.3.579.2 .462 Unknown [id number] 2.840.1.646547.3.579.2 .462 Unknown [id number] 2.840.1.894003.3.579.2 .462 Unknown [id number] 2.840.1.355455.3.579.2 .462 Unknown [id number] 2.840.1.694002.3.579.2 .462 Unknown [id number] 2.840.1.884315.3.579.2 .462 Unknown [id number] 2.16.840.1.468800.3.579.2 .462 Unknown [id number] 2.840.1.121278.3.579.2 .462 Unknown [id number] 2.840.1.261412.3.579.2 .462 Unknown [id number] 2.840.1.328644.3.579.2 .462 Unknown [id number] 2.16.840.1.752754.3.579.2 .462 Unknown [id number] 2.16.840.1.671034.3.579.2 .462 Unknown [id number] 2.16.840.1.934526.3.579.2 .462 Unknown [id number] 2.16840.1.754760.3.579.2 .462 Unknown [id number] 2.16.840.1.330161.3.579.2 .462 Unknown [id number] 2.16.840.1.137100.3.579.2 .462 Unknown [id number] 2.16.840.1.182121.3.579.2 .462 Unknown [id number] 2.16.840.1.017642.3.579.2 .462 Unknown [id number] 2.16.840.1.232993.3.579.2 .462 Unknown [id number] 2.16.840.1.642193.3.579.2 .462 Unknown [id number] 2.16.840.1.078646.3.579.2 .462 Unknown [id number] 2.16.840.1.955489.3.579.2 .462 Unknown [id number] 2.16.840.1.661777.3.579.2 .462 Unknown [id number] 2.16.840.1.871548.3.579.2 .462 Unknown [id number] 2.16.840.1.844608.3.579.2 .462 Unknown [id number] 2.16.840.1.989192.3.579.2 .462 Unknown [id number] 2.16.840.1.251466.3.579.2 .462 Social History Date Type Detail Facility Start: 03-06-2011 End: 09-21-2012 Tobacco smoking status NHIS Former smoker [facility] Work Phone: Comment on above: quit in 1993 End: 03-21-1994 History of tobacco use Current smoker [facility] Start: 09-21-2012 End: 09-06-2023 Tobacco use and exposure Never used [facility] Start: 09-21-2012 Alcohol intake 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 (finding) [facility] Start: 1960 Sex Assigned At Not on file [facility] Start: 11-10-2021 End: 09-16-2022 Tobacco smoking consumption unknown [facility] Start: 08-11-2019 Rare [facility] Start: 08-11-2019 None [facility] Start: 12-08-2020 Spouse/ Signif icant Other [facility] Start: 05-18-2019 Non-smoker [facility] Start: 1960 Sex Assigned At Female [facility] End: 03-21-1994 History of tobacco use Cigarette Smoker [facility] Work Phone: Start: 04-13-2022 Alcohol intake Current drinke r of alcohol (finding) [facility] Start: 04-09-2019 History SDOH Alcohol Comment rarely [facility] Start: 05-09-2022 End: 09-06-2023 Exposure to SARS-CoV-2 (event) Not sure [facility] Start: 02-03-2023 End: 09-06-2023 Tobacco smoking status Never smoked tobacco (finding) [facility] Sex Assigned At Sex [facility] Start: 04-13-2022 End: 10-02-2022 History of Social function [facility] Start: 04-13-2022 End: 10-02-2022 Tobacco use panel [facility] National Score (1-10 0), lower number is lower risk Not on file [facility] Start: 09-06-2023 Alcohol intake Lifetime non-d sue (finding) [facility] Work Phone: Within the last year , have you been afraid of your partner or ex-partner? No [facility] How often to you hav e a drink containing alcohol? Monthly or less [facility] How many standard drinks containing alcohol do you have on a typical day? 1 or 2 [facility] How often do you hav e 6 or more drinks on 1 occasion? Never [facility] Start: 10-04-2022 Sexual orientation Heterosexual (romel salcido) [facility] Start: 10-02-2022 History SDOH Alcohol Frequency 2 [facility] Start: 10-02-2022 History SDOH Alcohol Std Drinks [...] Facility 02-24-2023 Functional Status Room check performed [facility] 02-24-2023 Functional Status [facility] 02-24-2023 Functional Status Independent Wolf [facility] 02-24-2023 Functional Status Min A Wolf [facility] 02-24-2023 Functional Status Demonstrates C orrect Call Light Use Yes [facility] 02-23-2023 Functional Status [facility] 02-23-2023 Functional Status Dinner Percent 25 [facility] 02-23-2023 Functional Status Wolf [facility] 02-23-2023 Functional Status 60 Wolf Henry [facility] 02-23-2023 Functional Status 2 Wolf [facility] 02-23-2023 Functional Status Single level home [facility]3] 02-23-2023 Functional Status [facility] 02-22-2023 Functional Status [place] [facility] 02-22-2023 Functional Status Wolf [facility] 02-22-2023 Functional Status Vern Fry [facility] 02-22-2023 Functional Status ice on, tension pillow in place [facility] 02-22-2023 Functional Status NPO Status Maintained A [facility] 02-03-2023 Functional Status Sensory Deficits None A [facility] 09-17-2022 Functional status Ambulates [facility] Work Phone: Mental Status Date Assessment Result Facility 02-24-2023 Mental Status Orientation Asse ssment Oriented x 4 [facility] 02-24-2023 Mental Status [facility] 02-24-2023 Mental Status Oriented x 4 [facility] 02-23-2023 Mental Status [facility] 02-23-2023 Mental Status [facility] 09-16-2022 Cognitive function Voice/Name [facility] Work Phone: 01-30-2022 Cognitive function Level Of Cons ciousness Awake;Alert;Appropriate;Follow s Commands [facility] Work Phone: 09-25-2021 Cognitive function Level Of Cons ciousness Appropriate;Drowsy [facility] Work Phone: 09-25-2021 Cognitive function Voice/Name [facility] Work Phone: Clinical Notes 02-07-2015 to 03-26-2025 Telephone Encounter - Kitty Greco - 11/07/2023 10:14 AM EDTTelephone Encounter - Kitty Greco - 11/07/2023 10:14 AM EDTTelephone Encounter - Maria Teresa Bacon - 11/03/2023 9:43 AM EST Note Date & Type Note Facility 03-26-2025 Note [facility] 03-18-2025 Note [facility] 07-28-2024 Note [facility] 11-07-2023 Note Spoke to patient and advised her that we have not received her referral and requested her to have her pcp refax the referral to us. Patient verbalized understanding. [facility] 11-07-2023 Telephone encounter Note Spoke to patient [...] Name of caller: Flex Contact phone number: [phone] Relationship to Patient: patient Provider: Dr. Landis Practice: Endocrinology Chief Complaint/Reason for Call: Flex states she would like a call back to confirm receipt of her referral faxed to the office two days ago, 11/01/23, by Dr. Rica aPdgett. Please contact Flex and advise. Best time of day caller can be reached: Any Patient advised that office/PCP has 24-48 business hours to return their call: No documented in this encounter [facility] 11-03-2023 Telephone encounter Note Name of caller: Flex Contact phone number: [phone] Relationship to Patient: patient Provider: Dr. Landis [...] having your procedure, call the [facility] to be advised whether a visit to [...] Republican Signature Date documented in this encounter [facility] Work Phone: 09-06-2023 History and [...] care of this patient. Renita Mijares DO [facility] Work Phone: 09-06-2023 History and [...] Renita Mijares DO documented in this encounter [facility] Work Phone: 09-06-2023 Miscellaneous Notes Patient: Flex Wooten Pre-sedation Evaluation: Sedation necessary for: Analgesia Requesting service: Endoscopy History of Present Illness: Colonoscopy Past Medical History: Diagnosis Date Anxiety Chronic pain Depression Diabetes mellitus (CMS/HCC) Disease of thyroid gland Sleep apnea Principle problems: There are no problems to display for this patient. Allergies: Allergies Allergen Reactions Effexor [Venlafaxine] GI Upset HEM MARKER/Current Medications: (Not in a hospital admission) Current [...] ASA 2 Moderate documented in this encounter [facility] Work Phone: 09-06-2023 Note Formatting [...] Allergies Allergen Reactions Effexor [Venlafaxine] GI Upset HEM MARKER/Current Medications: (Not in a hospital admission) Current [...] exam Plan ASA [address] [facility] Work Phone: 09-06-2023 Note Formatting [...] Allergies Allergen Reactions Effexor [Venlafaxine] GI Upset HEM MARKER/Current Medications: (Not in a hospital admission) Current [...] - normal exam Plan ASA 2 Moderate [facility] Work Phone: 02-24-2023 [facility] Discharg e instructions Patient Education 02/24/2023 14:38:28 5 - [facility] Post-op Instruction 03/2017 (11746) [facility] Post-operative Instructions PLEASE FOLLOW [facility] POST-OP INSTRUCTIONS GIVEN WATCH FOR SIGNS OF INFECTION: call the office ([phone]) if experencing any of the following: (Usually [...] on your follow up instructions. Form: 338A 58716) R: 01/02 Follow Up Care 08/11/2022 13:44:36 With:MATTHEW HERNÁNDEZ PA-C, Orthopedic Address: [facility] [address] [place], [place] [address] [address]- When:03/07/2023 10:15:00 [facility] Robyn 02-24-2023 Note Discharge Instructions Thank you for allowing [facility] to assist you with your healthcare needs. The following is important discharge information regarding your hospital visit. Your Care Team [facility] Your Diagnosis Osteoarthritis Diabetes HTN (hypertension) Sleep apnea Status post total right knee replacement What to do next Follow Up Appointments Follow Up with MATTHEW HERNÁNDEZ PA-C, Orthopedic When 03/07/2023 10:15 AM EDT Where: [facility] [address] [place] [address] [place] [address]- The Following Activity and Diet Have Been [...] FOR SIGNS OF INFECTION: call the office ([phone]) if experencing any of the following: (Usually [...] on your follow up instructions. Form: 338A (52084) R: 01/02 Additional Information VACCINATE! IT SAVES LIVES! Members of the community who have not yet received the COVID-19 vaccine and would like to receive it can visit one of [facility] vaccine clinics. There are many vaccine clinic locations within the [facility]. For locations and available times, please visit [email or web address].o hio.gov/. It is important to note that some COVID mobile vaccine clinics are held outdoors and may be canceled in rainy or stormy conditions. To learn more about pediatric vaccinations (ages 5-11), we invite you to visit the [facility] webpage. https://www.[facility].org/p ages/2069-Ijyxk-Yrviqkwusbp-Freq dnmamw-Dmsaz-Fmzfqatca.html To learn more about the COVID-19 vaccine, we invite you to visit the CDC website for a list of frequently asked questions.https://www.cdc.gov/co ronavirus/2019-ncov/vaccines/faq .html [employer] Patient Portal Access Instructions: Stay connected with your healthcare team and access your personal medical information anytime with the [employer] Patient Portal. Please follow the directions below to create your [employer] account: 1.Access the email account you provided upon registration to the hospital/physician office.2.Look for an invitation email from [facility].3.Open the email and access the invitation link: Accept Invitation to [employer].4.Fill in the required morocho to create your account. To access your account, visit [email or web address]. Click the blue button labeled Access Patient [...] you will allow to register on the [facility] Patient Portal for access to your information. You can also access the [facility] Patient Portal on the [employer] otoniel. Simply click on Patient Portal and then log into your account. If you would like to receive a full copy of your medical records, please contact the [facility] Medical Records Department by calling [phone], Tuesday through Tuesday between 8 a.m. and [...] Call your local pharmacy or go to [email or web address] [email or web address].[email or web address]-Generator/[email or web address] to find one close to you.3.Make use of household items: Use cat litter or old coffee grounds to dispose medications if other options are not available. Mix your drugs with these household products, seal them in an airtight container and throw it into the garbage. Call [facility]: [phone] to be sure your drugs can be [...] a CHART COPY. Signatures Patient Education Materials [address] [place] [address] Post-op Instruction 03/2017 (40172) Medication Leaflets My discharge plan and instructions have been reviewed and explained to me and I,FLEX WOOTEN understand my current condition and have read and understand these discharge instructions. I have received a written copy of the plan/instructions. If I have questions, I am aware that I should contact my doctor. 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 The following is important discharge information regarding your hospital visit. Your Care Team [facility] Your Diagnosis Osteoarthritis Diabetes HTN (hypertension) Sleep apnea Status post total right knee replacement What to do next Follow Up Appointments Follow Up with MATTHEW HERNÁNDEZ PA-C, Orthopedic When 03/07/2023 10:15 AM EDT Where: [facility] [address] [facility] [place] [address]- The Following Activity and Diet Have Been [...] retail pharmacies. Medication Leaflets oxycodone (ox i JOHNSON done) Oxaydo, OxyCONTIN, Oxyfast, OxyIR, Roxicodone, Xtampza [...] The extended-release form of oxycodone is for xhsqrc-owj-uzzci treatment of pain and should not be [...] against the law. Stop taking all other wuwoit-rwa-bqpsm opioid pain medicines when you start taking [...] may report side effects to FDA at 1-463-EIC-3433. What other drugs will affect oxycodone? You [...] may affect oxycodone. This includes prescription and kszf-mdn-vweppjr medicines, vitamins, and herbal products. Not all [...] to ensure that the information provided by [employer]') is accurate, up-to-date, and complete, but no guarantee is made to that effect. Drug information contained herein may be time sensitive. [employer] information has been compiled for use by healthcare practitioners and consumers in the [place] and therefore [employer] does not warrant that uses outside of the [place] are appropriate, unless specifically indicated otherwise. [employer] drug information does not endorse drugs, diagnose patients or recommend therapy. [employer] drug information is an informational resource designed [...] effective or appropriate for any given patient. [facility] does not assume any responsibility for any aspect of healthcare administered with the aid of information [facility] provides. The information contained herein is not intended to cover all possible uses, directions, precautions, warnings, drug interactions, allergic reactions, or adverse effects. If you have questions about the drugs you are taking, check with your doctor, nurse or pharmacist. Copyright 7046-8021 [facility] [employer]. Version: 14.02. Revision Date: 09/25/2020. Education Materials [facility] Post-operative Instructions PLEASE FOLLOW [facility] POST-OP INSTRUCTIONS GIVEN WATCH FOR SIGNS OF INFECTION: call the office ([phone]) if experencing any of the following: (Usually [...] on your follow up instructions. Form: 338A (53200) R: 01/02 Additional Information VACCINATE! IT SAVES LIVES! Members of the community who have not yet received the COVID-19 vaccine and would like to receive it can visit one of [facility] vaccine clinics. There are many vaccine clinic locations within the [facility]. For locations and available times, please visit https://gettheshot.coronavirus.o hio.gov/. It is important to note that some COVID mobile vaccine clinics are held outdoors and may be canceled in rainy or stormy conditions. To learn more about pediatric vaccinations (ages 5-11), we invite you to visit the [facility] webpage. https://www.[facility].org/p ages/4220-Zecef-Bcvjdkzzuwe-Freq yxsutl-Zvczu-Pcsxlxzuf.html To learn more about the COVID-19 vaccine, we invite you to visit the CDC website for a list of frequently asked questions.https://www.cdc.gov/co ronavirus/2019-ncov/vaccines/faq .html [facility] Patient Portal Access Instructions: Stay connected with your healthcare team and access your personal medical information anytime with the [facility] Patient Portal. Please follow the directions below to create your [facility] account: 1.Access the email account you provided upon registration to the hospital/physician office.2.Look for an invitation email from [facility].3.Open the email and access the invitation link: Accept Invitation to [facility].4.Fill in the required morocho to create your account. To access your account, visit [email or web address]. Click the blue button labeled Access Patient [...] you will allow to register on the [facility] Patient Portal for access to your information. You can also access the [facility] Patient Portal on the [facility] otoniel. Simply click on Patient Portal and then log into your account. If you would like to receive a full copy of your medical records, please contact the [facility] Medical Records Department by calling [phone], Tuesday through Tuesday between 8 a.m. and [...] Call your local pharmacy or go to http://bit.ly/8B2Lf1r to find one close to you.3.Make use of household items: Use cat litter or old coffee grounds to dispose medications if other options are not available. Mix your drugs with these household products, seal them in an airtight container and throw it into the garbage. Call [facility]: [phone] to be sure your drugs can be [...] Education Materials [facility] Post-op Instruction 03/2017 (99877) Medication Leaflets oxycodone My discharge plan and instructions have been reviewed and explained to me and I,FLEX WOOTEN understand my current condition and have read and understand these discharge instructions. I have received a written copy of the plan/instructions. If I have questions, I am aware that I should contact my doctor. Patient/Cyber Special Agent Signature: Date/Time: Relationship to Patient: Witness Name/Signature: Date/Time: [facility] Wolf Carlson 02-23-2023 Note Date of Service [...] the past. She states she went to [facility]. We do have physical therapy currently on [...] of pulmonary embolism. I have reviewed the [place] Automated Rx Reporting System (OARRS) report for [...] MATTHEW HERNÁNDEZ PA-C on 02/23/2023 07:28 AM [facility] 02-22-2023 Note ORIGINAL EXAMINATION: TWO XRAY VIEWS [...] 02/22/2023 1:07:27 PM Ordering Provider: PJ MAHONEY [facility] 02-22-2023 Note ORIGINAL EXAMINATION: TWO XRAY VIEWS [...] 02/22/2023 1:07:27 PM Ordering Provider: PJ MAHONEY [facility] 02-22-2023 Anesthesiology Consult note Patient: FLEX WOOTEN Age: 62 years Sex: Female : 1960 Associated Diagnoses: None Author: MARTINA GOODWIN APRN-DRUG ABUSE COUNSELOR Preoperative Information Time of last food or [...] Sister Diabetes Mother Sister Procedure history: Bunionectomy (14798343). Comments: 02/03/2023 13:48 Hansa Álvarez RN BILATERAL Plantar fasciectomy ([id number]). Comments: 02/03/2023 13:48 Hansa Álvarez RN LEFT Fusion of lumbosacral region of spine by posterior approach ([id number]). Carpal tunnel release (043870199). Comments: 02/03/2023 13:50 Hansa Álvarez RN BILATERAL Tonsillectomy and adenoidectomy (371995706). Tubal ligation (270919556). Hysterectomy (852594663). Pump, device (1857116086). Comments: 02/03/2023 13:51 Hansa Álvarez RN PAIN PUMP Total knee arthroplasty (8555293834). Comments: 02/03/2023 13:52 EDT - Treisch, Hansa RN LEFT Social History Social & Psychosocial [...] Resp Rate 17 br/min (FEB 22 09:31) GCS194 mmHg (FEB 22 09:31) DBP77 mmHg (FEB 22 09:) Measurements from flowsheet : Measurements 02/22/2023 9:31 EDT Height 162.6 cm Admission Weight 110 kg [place] Body Weight 54.74 kg Admission Body Mass [...] Height 162.6 cm Admission Weight 110 kg [place] Body Weight 54.74 kg Admission Body Mass [...] no difficulties Skin Temperature Warm Skin Description [place], Normal for ethnicity, Dry Skin Integrity Intact Mucous Membrane Color [place] Skin Moisture General Dry IV Present Present [...] no symptoms Safety Brochure Information Reviewed Yes Wolf [employer] Video Viewed No Teaching Evaluation No further teaching needed Admission Note-Nursing Same Day Patient History (Modified) . Assessment and Plan [place] [employer]esthesi[employer] (ASA) physical status classification: [...] by MARTINA GOODWIN on 02/22/2023 10:59 AM [facility] 10-06-2022 Telephone encounter Note Name of caller requesting page:Matthew Phone Number of caller: [phone] ext [phone] Facility requesting page: [facility] Reason for Page: [...] peer to peer review with their medical support specialist. The acceptance date for the peer to peer is on or before 10/08/22 at 3pm. Peer to Peer can be scheduled by call Matthew at [phone] ext [phone] with reference number [id number]. Thank you. Response from Dr. Wright: I have never seen or met the patient Im not sure who needs to be contacted for this patient Reached out to [facility] management. Advised to call Matthew back. Spoke with another nurse advisor. Asked when order was placed, was advised it was 09/30/22 which was [facility] is another Dr. Tre Anderson at [facility]. That is where the records came from. The nurses states they will reach out to [facility]. [facility] 10-06-2022 Miscellaneous Notes Name of caller requesting page:Matthew Phone Number of caller: [phone] ext [phone] Facility requesting page: [facility] Reason for Page: Authorization Provider paged: Dr. Mony Wright Practice Name of paged provider: [facility] Placed to #: secure chat Time Page was sent or provider contacted: 2:40pm Page Content: Matthew, a clinical [facility] advisor [facility], called to inform Dr. Tre Anderson that the authorization for DME home ventilator has been denied. He state Dr. Anderson can do a peer to peer review with their medical support specialist. The acceptance date for the peer to peer is on or before 10/08/22 at 3pm. Peer to Peer can be scheduled by call Matthew at [phone] ext [phone] with reference number [id number]. Thank you. Response from Dr. Wright: I have never seen or met the patient Im not sure who needs to be contacted for this patient Reached out to [facility] management. Advised to call Matthew back. Spoke with another nurse advisor. Asked when order was placed, was advised it was 09/30/22 which was before pt had a chart with [facility]. There is another Dr. Tre Anderson at [facility]. That is where the records came from. The nurses states they will reach out to [facility]. documented in this encounter [facility] 06-23-2022 Miscellaneous Notes I left a message for Cary at [employer] regarding their addendum request. If they have Dr. Aggarwal' note, they have all the answers they need. Not sure if they have the patient's clinic note. Mendy Adams RN documented in this encounter [facility] 05-19-2022 Note HNO ID: [id number] Author: Nicolás Aggarwal MD Service: ? Author [...] HISTORY Diagnosis Date DVT (deep venous thrombosis) ([facility]) 2013 post knee replacement Fibromyalgia Hemorrhage [...] 2009 left knee -- meniscus repair; Dr. Wleler, [facility] SIGMOIDOSCOPY FLX DX W/COLLJ SPEC BR/WA [...] Lungs: No H (more content not included)... [facility] 05-19-2022 Note HNO ID: [id number] Author: RT Charley(Anival) Service: Radiology Author Type: Technologist Type: Progress [...] RT Charley(R) May 19, 2022 10:16 AM [facility] 05-19-2022 History of Presen t illness [...] HISTORY Diagnosis Date DVT (deep venous thrombosis) ([facility]) 2013 post knee replacement Fibromyalgia Hemorrhage of gastrointestinal tract, unspecified Hemorrhage of rectum and anus Internal hemorrhoids without mention of complication Other forms of migraine Other unspecified back disorder Pulmonary embolism ([facility]) 2013 PAST SURGICAL HISTORY Procedure Laterality [...] X-Rays The patient's pertinent medical history from [facility] has been reviewed. PFOMIS forms have [...] records. This note was partially generated using [employer] voice recognition system, and there may be [...] Nicolás Aggarwal M.D. 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 Thanks. Patient received letter for annual mammogram, please place order and have bench worker apprentice call her. Patient prefers AM appts. documented in this encounter [facility] Evaluation + Plan note Future Appointments [facility] Evaluation note Diagnosis Other screening mammogram [facility] note[facility] assessment [facility] Work Phone: Evaluation note* Diagnosis Pes planus of left foot- Primary Primary osteoarthritis of left foot Diabetic neuropathy, painful (HCC) Type II or unspecified type diabetes mellitus with neurological manifestations, not stated as uncontrolled Acquired valgus deformity of left ankle [facility] Diagnosis Onset Date Resolution Status Diabetes chronic High cholesterol chronic Hypertension chronic Obesity chronic Diabetes chronic Hypertension chronic Obesity chronic [facility] Work Phone: Evaluation note* Diagnosis Onset Date Resolution Status NIEVES (dyspnea on exertion) re solved Hypoxia resolved [facility] Work Phone: Evaluation note* Diagnosis Acquired valgus deformity of left ankle- Primary [facility] Diagnosis Pain Generalized pain [facility]* Diagnosis Diarrhea, unspecified type- Primary documented in this encounter [facility] Work Phone: Evaluation note* Diagnosis Diarrhea, unspecified type- Primary documented in this encounter [facility] Work Phone: Hospital course Narrative No data available for this section [facility] Hospital Discharge instructions No data available for this section [facility] Progress note No data available for this section [facility] Reason for referral (narrative)* Diagnostic Procedure Only (Routine) - Pending Review Specialty Diagnoses / Procedures Referred By Kelton rincon Referred To Contact XR IMAGING Diagnoses Acquired valgus deformity of left ankle Procedures XR ANKLE GENERAL 3V AP/LAT/OBL LEFT RADEX ANKLE COMPLETE MINIMUM 3 VIEWS Nicolás [place] [address] [place] [address] Xr Imaging Referral ID Status Reason Start Date Expiration Date Visits Requested Visits Authorized [id number] Pending Review Auto-Generat ed Referral 09/28/2022 10/27/2023 1 1 [facility] for referral (narrative)* Diagnostic Procedure Only (Routine) - Closed Specialty Diagnoses / Procedures Referred By Kelton rincon Referred To Contact XR IMAGING Diagnoses Pain Procedures XR FOOT GENERAL 3V AP/LAT/OBL LEFT RADEX FOOT COMPLETE MINIMUM 3 VIEWS Nicolás [place] [address] [place] [address] [place] [address] Referral ID Status Reason Start Date Expiration Date V isits Requested Visits Authorized [id number] Closed Auto-Generate d Referral 05/04/2022 06/03/2023 1 1 [facility] Summary Purpose Family History [...] No November 10, 2021 11:41am 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 No November 10 11:41am Advance Directive Response Recorded Date/ Time Advance Directives Yes August 01, 2015 5:05pm Living Will No January 25, 2022 2 :05pm 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 No January 25, 2022 2:05pm Advance Directive Response Recorded Date/ Time Advance Directives Yes August 01, 2015 5:05pm Living Will No January 30, 2022 1 1:58pm 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 No January 30, 2022 11:58pm Advance Directive Response Recorded Date/ Time Advance Directives Yes April 2:05pm Living Will No May 19, 2022 2:05pm 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 No April 2:05pm Advance Directive Response Recorded Date/ Time Advance Directives Yes April 2:05pm Living Will No September 16 5:52pm 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 No September 16, 2022 5:52pm Latest Code [...] RULE OUT PE SOB HYPERGLYCEMIA Chief Complaint rn research, 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 Reason for Visit Diabetes High cholesterol Hypertension Obesity Diabetes Hypertension Obesity Chief Complaint 3 M FU RULE OUT DVT HYPOXIA HYPOXIA HYPOXIA SOB Reason for Visit NIEVES (dyspnea on exer tion) Hypoxia Reason for Referral Specialty Diagnoses / Procedures Referred By Kelton rincon Referred To Contact Gastroenterology Diagnoses Diarrhea, unspecified type Procedures Colonoscopy Screening; Average Risk Patient MT COLONOSCOPY FLX DX W/COLLJ SPEC WHEN PFRMD MT COLON CA SCRN NOT HI RSK IND MT COLORECTAL SCRN; HI RISK IND MT COLONOSCOPY W/BIOPSY SINGLE/MULTIPLE MT COLSC FLX W/RMVL OF TUMOR POLYP LESION SNARE TQ MT COLSC FLX W/REMOVAL LESION BY HOT BX FORCEPS Renita Mijares, DO [address] [facility], [address] [place] [address] Referral ID Status Reason Start Date Expiration Date V isits Requested Visits Authorized [id number] Authorized 07/26/2023 07/25/2024 1 1 Additional Source Comments INFORMATION SOURCE (unrecogn ized section and content) DATE CREATED AUTHOR 05/09/2019 [facility] DATE CREATED AUTHOR AUTHOR'S ORGANIZ ATION 05/09/2019 [facility] DATE CREATED AUTHOR AUTHOR'S ORGANIZ ATION 02/13/2020 [facility] DATE CREATED AUTHOR AUTHOR'S ORGANIZ ATION 05/27/2021 [facility] DATE CREATED AUTHOR AUTHOR'S ORGANIZ ATION 06/26/2022 [facility] DATE CREATED AUTHOR AUTHOR'S ORGANIZ ATION 03/07/2023 [facility] ([place]) DATE CREATED AUTHOR AUTHOR'S ORGANIZ ATION 09/08/2023 [facility] DATE CREATED AUTHOR AUTHOR'S ORGANIZ ATION 11/07/2023 [facility] DATE CREATED AUTHOR AUTHOR'S ORGANIZ ATION 07/12/2025 [facility] Source Comments (unrecognize d section and content) In the event this informatio n is protected by the Federal Confidentiality of Alcohol and Drug Abuse Patient Records regulations: The Federal rules restrict any use of the information to criminally investigate or prosecute any alcohol or drug abuse patient.[facility] the event this information is protected by the Federal Confidentiality of Alcohol and Drug Abuse Patient Records regulations: The Federal rules restrict any use of the information to criminally investigate or prosecute any alcohol or drug abuse patient.[facility] Center[facility] the event this information is protected by the Federal Confidentiality of Alcohol and Drug Abuse Patient Records regulations: The Federal rules restrict any use of the information to criminally investigate or prosecute any alcohol or drug abuse patient.[facility] Center[facility] the event this information is protected by the Federal Confidentiality of Alcohol and Drug Abuse Patient Records regulations: The Federal rules restrict any use of the information to criminally investigate or prosecute any alcohol or drug abuse patient.[facility] Center[facility] the event this information is protected by the Federal Confidentiality of Alcohol and Drug Abuse Patient Records regulations: The Federal rules restrict any use of the information to criminally investigate or prosecute any alcohol or drug abuse patient.[facility] Reason for Visit (unrecogniz ed [...] COMPLETE MINIMUM 3 VIEWS Nicolás [place] [address] [place] [address] [place] [address] Referral ID Status Reason Start Date Expiration Date V isits Requested Visits Authorized [id number] Closed Auto-Generate d Referral 05/04/2022 06/03/2023 1 1 Specialty Diagnoses / Procedures Referred By Contac t Referred To Contact Diagnoses Diarrhea, unspecified Procedures MT COLONOSCOPY FLX DX W/COLLJ SPEC WHEN PFRMD MT COLONOSCOPY W/BIOPSY SINGLE/MULTIPLE MT COLSC FLX W/RMVL OF TUMOR POLYP LESION SNARE TQ MT COLSC FLX W/REMOVAL LESION BY HOT BX FORCEPS [facility] [id number] [facility] [address] [facility] [address] [place] [phone] Referral ID Status Reason Start Date Expiration Date Visits Re quested Visits Authorized [id number] 1 1 Reason Onset Date Comments Referral [...] Care Teams (unrecognized sec tion and content) 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 Martin Trejo [...] Padgett , Primary Care Provider Active Dr. 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 Equipment Repairer Relationship Specialty Start Date End Date Rica Padgett DO [address] [place] [id number] PCP - General Family Medicine 09/06/23 Archery Equipment Repairer Relationship Specialty Start Date End Date Rica Padgett DO [address] [place] [phone] PCP - General Family Medicine 09/06/23 Archery Equipment Repairer Relationship Specialty Start Date End Date Erin Saunders [address] [place], [place] [address] PCP - General Family Medicine 10/01/22 Archery Equipment Repairer Relationship Specialty Start Date End Date Erin Saunders [address] [place] [address] PCP - General Family Medicine 10/01/22 FOR [...] BE BASED ON THE PRIMARY CLINICAL RECORDS. [employer] provides no warranty or guarantee of the accuracy or completeness of information in this document.
[2025-08-23] MEDS: Lactated Ringers 1,000 ML 15 ML IV (14:07)
--- NOTE | 2025-08-23 14:26 | PRE.ANES_ITS ---
ASA Classification* ASA Classification ASA Classification: 3 Assessment & Plan Anesthesia* Anesthesia Assessment Anesthesia Assessment: Discussed sedation and/or anesthesia options, risks, benefits, and alternatives with patient/parents/legal guardian/POA. Questions invited. The patient/parents/legal guardian/POA seems to understand and agrees to proceed with anesthesia plan. Reviewed the physical assessment, medical history, allergy history and patient home medications list prior to surgery/procedure/anesthetic and documented any changes. Performed airway and anesthesia risk assessments. Anesthesia Type Anesthesia Type: MAC History Source History Obtained from:: Patient and Chart Anesthesia Focused Assessment* Temperature: 97.8 F Pulse Rate: 77 Blood Pressure: 147/95 Respiratory Rate: 18 Pulse Ox: 95 Oxygen Delivery Method: Room Air Airway Assessment Mouth opens: >3 cm Mallampati Score: I Teeth Condition: Missing (Patient is missing a couple teeth on the bottom. Rest of the teeth are tight.) and Upper (Left upper permanent bridge. It is tight.) Neck Range of motion (ROM): Limited ROM (Somewhat Decreased) Labs Anesthesia Preop lab: CBC WBC, (4.4-11.0) 7.9 K/mm3 08/07/25, 09:59 RBC, (4.2-5.4) 4.81 M/mm3 08/07/25, 09:59 Hgb, (12.0-15.0) 13.8 g/dL 08/07/25, :59 Hct, (37-47) 44.5 % 08/07/25, :59 Plt Count, (150-450) 264 K/mm3 08/07/25, 09:59 CHEMISTRY Potassium, (3.3-5.1) 4.5 mmol/L 08/07/25, 09:59 Sodium, (133-145) 138 mmol/L 08/07/25, 09:59 Magnesium, (1.5-2.2) 1.8 mg/dL 03/15/25, 18:11 Phosphorus, (2.7-4.5) 3.2 mg/dL 03/17/25, 05:53 BUN, (4-19) 18 mg/dL 08/07/25, 09:59 Creatinine, (0.70-1.20) 0.72 mg/dL 08/07/25, 09:59 Glucose, (70-99) 216 mg/dL H 08/07/25, 09:59 POC Glucose, (74-106) 118 mg/dL H Today, 14:06 TSH, (0.300-4.200) 1.540 uIU/mL 03/15/25, 18:11 COAG PT, (11.7-14.9) 12.1 SECONDS 08/01/15, 13:15 Pre-Assessment Diagnosis/Proposed Procedure Planned Operative Procedure(s): HARDWARE REMOVAL & PLACEMENT OF K WIRES TO THE LEFT FIRST INTERPHALANGEAL JOINT Anesthesia History Anesthesia History - hand cloth examiner: Anesthesia History - hand cloth examiner Hx Hospitalization Yes: KNEE REPLACEMENT 08/20/25 13:43 Any Problems With Anesthesia No 08/20/25 13:43 Cholinesterase deficiency No 08/20/25 13:43 You/Your Family Experience No 08/20/25 13:43 fever (hyperthermia) with Relationship Recent Exposure to Contagious No 08/23/25 13:52 Disease Does patient have nerve No 08/20/25 13:43 stimulator Patient instructed to have device shut off --Does patient have Pacemaker No 08/23/25 13:52 or ICD? When Was Last Pacemaker Check QUESTION #4 FULL TEXT: You/Your Family Experience fever (hyperthermia) with Anesthesia Last Oral Intake Last Oral intake: Last Oral Intake NPO since 00:00 08/23/25 13:52 Meds taken in AM with sips of Yes 08/23/25 13:52 water? Meds patient instructed to see medlist 08/23/25 13:52 take am of surgery Any additional information?: Yes Meds taken in AM with sips of water?: Yes PONV PONV - hand cloth examiner: PONV - hand cloth examiner Female Yes 08/20/25 13:43 HX of Motion Sickness No 08/20/25 13:43 HX of N/V After Surgery No 08/20/25 13:43 Non-Smoker Yes 08/20/25 13:43 Duration of Surgery greater Yes 08/20/25 13:43 than 60 minutes Number of Risk Factors 3 08/20/25 13:43 PONV Score Moderate Risk 08/20/25 13:43 Height & Weight Height & Weight: Anesthesia: Height & Weight Height 5 ft 4 in 08/23/25 13:52 Weight: 121.7 kg 08/23/25 13:52 Body Mass Index (BMI) 46.0 08/23/25 13:52 Respiratory Assessment Respiratory Assessment - hand cloth examiner: Respiratory Tract Infection Hx - hand cloth examiner Hx Respiratory Tract Infection No 08/20/25 13:43 STOP Sleep Apnea STOP Sleep Apnea - hand cloth examiner: STOP Sleep Apnea - hand cloth examiner Hx Hypertension Yes 08/20/25 13:43 Hx Sleep Apnea Yes: ASV 08/20/25 13:43 CPAP Yes 08/20/25 13:43 BIPAP No 08/20/25 13:43 Do you snore loudly (louder than talking or can be heard Do you often feel tired/ fatigued/ sleepy during daytime? Has anyone observed you stop breathing during sleep? STOP Results Positive 08/20/25 13:43 QUESTION #5 FULL TEXT : Do you snore loudly (louder than talking or can be heard through closed doors)? Tobacco Use History Tobacco Use History - hand cloth examiner: Tobacco Use History - hand cloth examiner Tobacco Use Smoking Status Former smoker 08/20/25 13:43 Hx Tobacco Use No 08/20/25 13:43 Years Smoking Packs Smoked per Day Smoking Cessation Date was Yes - quit smoking within 15 08/20/25 13:43 within the last 15 years years Hx Smoking Cessation Date 03/16/94 08/20/25 13:43 Hx Smoking Cessation No 08/20/25 13:43 Counseling Hematologic Medial History Hematologic Hx - hand cloth examiner: Hematologic Medical Hx - training and documentation specialist Hx of Blood Transfusion No 08/20/25 13:43 Hx of Transfusion in last 3 No 08/20/25 13:43 Months Date of Last Transfusion (if within last 3 months) Ever experience any problems No 08/20/25 13:43 with transfusion(s)? Specify any problems Hx of Preganancy in last 3 No 08/20/25 13:43 Months Nurse Filling Out Transfusion VCHRISTIN 08/20/25 13:43 & Questions: Date: 08/20/25 08/20/25 13:43 Time: 13:45 08/20/25 13:43 Patient unable to answer at this time (ie. confused, unrespo /Reproduction History /Reproductive History - hand cloth examiner: /Reproductive Hx- hand cloth examiner Hx Now No 08/20/25 13:43 Gestational Age (in weeks): EDC: Hx Hx Para Hx Section SAB No 08/20/25 13:43 Does the father of the baby or his family experience fever w Father of the baby Malignant Hypertension history comment Active Medications Active Medications: Current Medications Generic Name Dose Route Start Last Admin Trade Name Fremili PRN Reason Stop Dose Admin Cefazolin Sodium 3 gm/ Sodium 115 mls @ 200 mls/hr 08/23/25 14:30 Chloride IV 08/23/25 15:04 INTRAOP ONE Lactated Ringer's 1,000 mls @ 15 mls/hr 08/23/25 14:15 08/23/25 14:07 IV 15 mls/hr .Q48H EDMOND Administration PFSH Medical History Wears glasses Post-menopausal MRSA infection Adopted Insulin dependent diabetes mellitus Ambulates with cane Uses wheelchair DVT (deep venous thrombosis) Pulmonary embolism Restless legs Back pain Injury of back Dietary restriction Gastric reflux Former smoker Shortness of breath on exertion Leg cramps History of pain when walking History of edema History of echocardiogram History of stress test Cardiology follow-up encounter Central sleep apnea treated with adaptive servo-ventilation (ASV) device (HFpEF) heart failure with preserved ejection fraction Essential (primary) hypertension Hypothyroidism Anxiety disorder, unspecified Depressive 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 PTSD (post-traumatic stress disorder) Fibromyalgia Arthritis DVT (deep venous thrombosis) Back pain On home oxygen therapy Implantable intrathecal infusion pump present Home Medications ?Medication ?Instructions ?Recorded ?Last Taken ?Type omeprazole 40 mg capsule,delayed 40 mg PO DAILY GERD 0 08/30/13 08/23/25 History release levothyroxine 50 mcg tablet 50 mcg PO DAILY thyroid 08/23/25 History atenolol 25 mg tablet 25 mg PO DAILY heart 9 08/23/25 History methotrexate sodium 2.5 mg tablet 20 mg PO FR fibromya lgia 08/19/20 03/24/25 History leucovorin calcium 10 mg tablet 5 mg PO FR supplement 12/08/20 03/24/25 History cholecalciferol (vitamin D3) 25 25 mcg PO DAILY supple ment 09/13/22 03/24/25 History mcg (1,000 unit) capsule folic acid 1 mg tablet 1 mg PO BREAKFAST supplement #30 03/03/24 03/24/25 Rx tabs oxycodone-acetaminophen 5 mg-325 1 tab PO BID PRN pain 07/27/24 03/24/25 History mg tablet fenofibrate nanocrystallized 48 mg 48 mg PO DAILY chol esterol 30 days 03/18/25 03/24/25 Rx tablet #30 tabs tizanidine 4 mg tablet 2 mg (1/2 x 4 mg) PO TID PRN 03/18/25 03/24/25 Rx Muscle spasm 3 days #0 tabs ropinirole 1 mg tablet 1 mg PO BID restless legs 08/16/25 History clonidine HCl 0.1 mg tablet 0.1 mg PO BID Anxiety/trem ors 04/03/25 08/23/25 History blood-glucose sensor (FreeStyle #6 ea 04/22/25 Unknown Rx Prema 3 Plus Sensor device) lorazepam 2 mg tablet 1 mg PO TID PRN 06/03/25 Unk nown History hydroxyzine HCl 25 mg tablet 50 mg PO QHS 07/30/25 Unk nown History sumatriptan succinate 50 mg tablet 100 mg PO Q2H PRN m igraine headache 07/30/25 Unknown History escitalopram oxalate 20 mg tablet 20 mg PO DAILY for d epressive 08/06/25 08/23/25 Rx disorder #90 TABLETS gabapentin 100 mg capsule 100 mg PO TID nerve pain 90 days 08/06/25 08/23/25 Rx #270 caps insulin lispro 100 unit/mL 30 unit (0.3 mL) subcut TID WMEAL 08/06/25 Unknown Rx subcutaneous pen (Humalog KwikPen diabetes #117 mL (U-100) Insulin) furosemide 40 mg tablet (Lasix) 40 mg PO PRN PRN edema 08/12/25 Unknown History insulin glargine 100 unit/mL (3 66 unit subcut DAILY d iabetes 08/12/25 Unknown History mL) subcutaneous pen (Lantus mellitus Solostar U-100 Insulin) trazodone 50 mg tablet 50 mg PO QHS 08/12/25 Unknow n History dulaglutide 1.5 mg/0.5 mL 1.5 mg (0.5 mL) subcut QWEEK #2 mL 08/15/25 08/05/25 Rx subcutaneous pen injector (Trulicity) PAIN PUMP (INFORMATIONAL USE 08/20/25 Unknown Hist ory ONLY-PATIENT HAS HYDROMORPHONE PUMP) Allergy/AdvReac Type Severity Reaction Status Date / Time amitriptyline Allergy Intermediate flushing Verified 08/23/25 13:49 niacin Allergy Itching Verified 08/23/25 13:49 venlafaxine AdvReac Severe Vomiting Verified 08/23/25 13:49 metformin AdvReac Intermediate Diarrhea Verified 08/23/25 13:49 Family History Sister Breast cancer Diabetes Kidney disease Mother Diabetes Heart disease Other Arthritis Surgical History History of esophagogastroduodenoscopy (EGD) Hx of colonoscopy Hx of foot surgery H/O arthroplasty History of bunionectomy of both great toes History of lumbar fusion History of total right knee replacement Hx of surgical procedure Hx of arthroscopic knee surgery History of carpal tunnel release Hx of hysterectomy History of back surgery Hx of total knee replacement hx of plantar fasciotomy Social History household members: spouse Smoking Status: Former smoker alcohol intake: never substance use type: does not use caffeine: No what type of physical activity do you participate in: none seatbelt use: always do you feel safe at home: Yes additional social history: [id number] at [employer] Patient is disabled Review of Systems (Anesthesia) ROS Narrative System reviewed and no additional complaints, except as documented.
--- NOTE | 2025-08-23 14:45 | RAD_ITS ---
EXAM: XR Left Foot, 2 Views CLINICAL INDICATION: HARDWARE REMOVAL AND PLACEMENT OF K WIRES TECHNIQUE: Frontal and lateral views of the left foot. COMPARISON: No relevant prior studies available. FINDINGS: BONES/JOINTS: Unremarkable. No acute fracture. No dislocation. SOFT TISSUES: Unremarkable. OTHER FINDINGS: 2 fluoroscopic images were obtained. Total fluoroscopy time 42 seconds. Total radiation dose 0.2425 mGy. RAD/Foot 2 Views IMPRESSION: Fluoroscopic guidance was used intraoperatively. Please refer to operative not e for further details. Reading Location: [id number]
--- NOTE | 2025-08-23 15:51 | PCM.DC ---
Discharge Instructions DC O2, CPAP, BIPAP needs Home O2 Discharge instructions: No Dressing / Incision Discharge Activity: May Not Drive Weight Bearing Status: No weight bearing (No weightbearing left foot) Keep extremity elevated above heart level: Operative Extremity (Keep left foot elevated for at least 50 minutes of every hour using pillows) Dressing / Incision Call your doctor if your incision/area has: Continuous Slow Oozing, Sudden Increased Bleeding and Foul Smelling Discharge Call your doctor if you observe: Fever of 101 or Higher, Shortness of breath, Chest pain, Increased palpitations (irregular heartbeat), Calf discomfort and Uncontrolled pain Change Dressing in: do not change dressing Cleanse incision/area with: Keep Dressing Clean & Dry Follow Up Care Please Follow Up With: Rafi Berry DPM When: next week in office, but sooner if needed Test Results: Test results from this visit will be discussed in further detail at your follow-up appointment, if applicable. Discharge Plan Admission Attending Provider: Rafi Berry Primary Care Provider: Rica Padgett Instructions Print Language: Malawian Discharge Orders/Prescriptions Prescriptions: New doxycycline hyclate 100 mg capsule 100 mg PO Q12H Qty: 6 0RF No Action methotrexate sodium 2.5 mg tablet 20 mg PO FR cholecalciferol (vitamin D3) 25 mcg (1,000 unit) capsule 25 mcg PO DAILY lorazepam 2 mg tablet 1 mg PO TID PRN (DME) FreeStyle Prema 3 Plus Sensor Device See Rx Instructions .Route Qty: 6 1RF Rx Instructions: As directed escitalopram oxalate 20 mg tablet 20 mg PO DAILY Qty: 90 1RF gabapentin 100 mg capsule 100 mg PO TID 90 Days Qty: 270 1RF sumatriptan succinate 50 mg tablet 100 mg PO Q2H PRN (Reason: migraine headache) hydroxyzine HCl 25 mg tablet 50 mg PO QHS omeprazole 40 MG capsule 40 mg PO DAILY Patient Comments: ACID REFLEX levothyroxine 50 MCG tablet 50 mcg PO DAILY atenolol 25 MG tablet 25 mg PO DAILY leucovorin calcium 10 MG tablet 5 mg PO FR folic acid 1 mg Tablet 1 mg PO BREAKFAST Qty: 30 0RF oxycodone-acetaminophen 5-325 mg tablet 1 tab PO BID PRN (Reason: pain) fenofibrate nanocrystallized 48 mg Tablet 48 mg PO DAILY 30 Days Qty: 30 0RF tizanidine 4 mg tablet 2 mg PO TID PRN (Reason: Muscle spasm) 3 Days Qty: 0 0RF PAIN PUMP (INFORMATIONAL USE ONLY-PATIENT HAS HYDROMORPHONE PUMP) Patient Comments: PT UNAWARE OF DOSAGE Rx Instructions: MEDTRONIC DILAUDID ropinirole 1 mg tablet 1 mg PO BID clonidine HCl 0.1 mg tablet 0.1 mg PO BID Patient Comments: take 1 tablet by mouth three times a day if needed for anxiety or TREMOR(S) insulin glargine [Lantus Solostar U-100 Insulin] 100 unit/mL (3 mL) insulin pen 66 unit subcut DAILY trazodone 50 mg tablet 50 mg PO QHS furosemide [Lasix] 40 mg tablet 40 mg PO PRN PRN (Reason: edema) Rx Instructions: 3lbs weight gain in 24 hrs, 5lbs in a week or less, significant worsening in your shortness of breath or swelling insulin lispro [Humalog KwikPen Insulin] 100 unit/mL insulin pen 30 unit subcut TIDWMEAL MDD 130 Qty: 117 3RF Rx Instructions: plus sliding scale 180 +4; 210 +6; 240 +10; 280 +14 Trulicity 1.5 mg/0.5 mL pen injector 1.5 mg subcut QWEEK Qty: 2 4RF Referrals / Follow Up: Rica Padgett DO [Primary Care Provider, Family Practice] Disposition Disposition (needs filled in before D/C Order can be placed): Home, Self Care
--- NOTE | 2025-08-23 15:58 | PCM.POST.ANE ---
Anesthesia: Postop Eval I Current Vital Signs Temperature: 97.4 F Pulse Rate: 74 Blood Pressure: 131/68 Respiratory Rate: 14 Pulse Ox: 95 Oxygen Delivery Method: Nasal Cannula Oxygen Flow Rate (L/min): 4 Assessment Airway patent: Yes Spontaneous unlabored respirations: Yes Mental status: Awake and Calm nausea: No Vomiting: No Anesthesia Complication: No Fluid Hydration Crystalloid volume administer (ml): 800 Total IV fluid infused: 800 Progress Note Anesthesia document: Postop Eval 1 completed: Yes
--- NOTE | 2025-08-23 16:05 | OP.PCM_ITS ---
Operative Report (Standard) Operative Information Date of Procedure: 08/23/25 Pre-Operative Diagnosis: Hardware failure, left 1st toe Post-Operative Diagnosis: Same Surgery/Procedure Performed: Hardware removal and placement of kwires left 1st toe supervisor sawing and assembly: No Type of Anesthesia: Local MAC RN Documented Start/Stop Times: Operation Date: 08/23/25 14:30 Case Time Into Pre-Op 08/23/25 13:28 Out of Pre-Op 08/23/25 14:50 Anesthesia Start 08/23/25 14:56 Into Room 08/23/25 14:56 Procedure Start 08/23/25 15:20 Procedure End 08/23/25 15:41 Anesthesia End 08/23/25 15:48 Out of Room 08/23/25 15:48 Into Recovery 08/23/25 15:50 Procedure Start Time: 15:20 Procedure Stop Time: 15:41 Select all DRAINS/GRAFTS/IMPLANTS that apply: Implanted device Implanted device details: 2 x 0.062in kwires Estimated Blood Loss: < 1mL Specimen collected: No Description of surgery: Indications: Patient is a 65 year old female who on 08/16/2025 underwent left 1st toe interphalangeal (IPJ) arthrodesis with screw fixation. She presents for post operative visit and noted to have displacement and movement of the screw with gapping at the arthrodesis site. We discussed the options and she elected to proceed with hardware removal and placement of kwires, converting the arthrodesis to more of an arthroplasty. Full revision of the arthrodesis would be much higher risk. This was discussed with her in detail and she would like to proceed with the procedure. The possible benefits vs risks, goals, expectations, estimated healing time and alternative options were discussed with her in detail. The consent forms were reviewed with her and she freely signed them. No guarantees or warranties were given nor implied. Operative Procedure: The patient was brought back to the operating room table and was placed on the operating room table in the supine position. The patient was carefully secured to the operating room table with a safety belt around her waist. The patient received 3g of IV Ancef for antibiotic prophylaxis. A well padded pneumatic tourniquet was applied around her left ankle. The patient received MAC anesthesia per the anesthesia team. The overlying skin of the 1st ray on patient's left foot was cleansed with 70% Isopropyl alcohol and a total of 10mL of 0.5% Bupivacaine plain was given as a local nerve block to the site. The suture to the distal 1st toe was removed withou incident. The patient's left foot was scrubbed, prepped and draped in the usual aseptic fashion. A timeout was performed and the patient was properly identified and the surgical plan was confirmed. Further attention was directed to the patient's left 1st toe and the IPJ was unstable and the distal phalanx was mildly plantarflexed, there was no evidence of infection, no drainage, no visible abscess, no cellulitis, no necrosis, no evidence of acute ischemia. The left foot was elevated for several minutes and the left ankle pneumatic tourniquet was inflated to 250mmHg. The small incision site to the distal 1st toe was dissected using a small hemostat down to the screw head. The screw was removed in toto without complication using the 4.0mm cannulated screwdriver. The IPJ and 1st toe were placed in clinically appropriate alignment and was fixated using 2 x 0.062in kwires. This was down under intraoperative fluoroscopy guidance. Proper toe position and placement of the kwires was confirmed using intraoperative fluoroscopy. Clinically the toe was in excellent position, and IPJ was rigid and stable at this time. The site was flushed out with copious amounts of normal saline solution. The skin was reapproximated using 3-0 Monocryl. An additional 10mL of 0.5% Bupivacaine plain was given as a local nerve block to left 1st ray on left foot. The incision site dorsal 1st toe IPJ was intact and sutures intact. A dressing was applied which consisted of Betadine solution, 4x4 gauze, Kerlix and dedrick dressing. The pneumatic tourniquet was deflated (total tourniquet time was 20 minutes) with dressing application and there was immediate return of warmth and perfusion to the patient's left foot with CFT < 2 seconds to all toes. The patient tolerated the above procedure and anesthesia well with no complications. Post operative orders were placed, post operative instructions have been reviewed with patient, and she was given verbal and written discharge instructions again. She already has pain medication at home per pain management. She is going to remain nonweightbearing left foot and keep left foot elevated for at least 50 minutes of every hour. Doxycycline 100mg PO q 12 hours for 3 days was prescribed to help prevent infection as well. She is going to follow up with me next week in office, but sooner if needed. Surgical Findings: As noted above Complications Complications: No
--- NOTE | 2025-08-23 16:13 | PCM.POSTANE2 ---
Anesthesia Postop Eval I Sum Postop Eval Completion status Anesthesia document: Postop Eval 1 completed: Yes Anesthesia Postop Eval I Summary Anesthesia Postop Eval I Summary: Anesthesia Postop Eval I: Assessment Summary Airway patent Yes 08/23/25 15:58 [email or web address] Spontaneous unlabored Yes 08/23/25 15:58 [email or web address] respirations Mental status Awake,Calm 08/23/25 15:58 [email or web address] nausea No 08/23/25 15:58 [email or web address] Vomiting No 08/23/25 15:58 [email or web address] Anesthesia Postop Eval I: Fluid Summary Crystalloid volume administer 800 08/23/25 15:58 [email or web address] (ml) Colloids volume administered ( ml) Blood Product volume administered (ml) Total IV fluid infused 800 08/23/25 15:58 [email or web address] Anesthesia Postop Eval I: Summary Notes Anesthesia Complication No 08/23/25 15:58 [email or web address] Anesthesia Complication Comment: Post-operative progress note Anesthesia: Postop Eval II Evaluation Mental status: Awake Pain Level: 2 nausea: No Vomiting: No
== END 2025-08-23 17:25 | disposition home or self-care (01) ==
LOC: SDC 13:01 → AC 13:02
PROVIDERS: PCP Family Medicine; Referring Provider Podiatrist; Visit Provider Podiatrist
PROC: (CPT 20680; principal; 2025-08-23 14:15)
DX: Z47.2 Encounter for removal of internal fixation device (principal); Z79.4 Long term (current) use of insulin; E11.42 Type 2 diabetes mellitus with diabetic polyneuropathy; M20.42 Other hammer toe(s) (acquired), left foot; G47.30 Sleep apnea, unspecified; M19.072 Primary osteoarthritis, left ankle and foot; Z79.899 Other long term (current) drug therapy
CPT/HCPCS: 20680; 01480; 73620; 76000; 82962; J2405